=== PATIENT | male | born 1945 | race Caucasian/White ===

== ENCOUNTER 2023-03-01 18:20 | Outpatient (RCR) | payer MEDICARE, OTHER, SELFPAY | END 2023-03-25 23:59 | disposition home or self-care (01) | LOC: MM 18:20 | PROVIDERS: PCP Internal Medicine; Visit Provider Internal Medicine | DX: Z51.81 Encounter for therapeutic drug level monitoring (principal); Z79.01 Long term (current) use of anticoagulants; I48.91 Unspecified atrial fibrillation ==

== ENCOUNTER 2023-03-15 07:47 | Outpatient (OUT) | payer MEDICARE, OTHER, SELFPAY ==
--- NOTE | 2023-03-15 08:00 | CA_ITS ---
Patient: EL TRUONG Exam Date: 03/15/2023 : 1945 Gender:M Ordering : [facility] Admission #: [id number] Family : Order #: [id number] CLICK HERE TO VIEW EXAM ECHOCARDIOGRAM REPORT PROCEDURE: CA ECHO DOPPLER COMPLETE INDICATIONS: Atrial fibrillation, hypertension, diabetes, ascending aorta dilatation COMPARISON: None. DESCRIPTION: COMPLETE ECHOCARDIOGRAM Real-time transthoracic echocardiography with 2D, M-mode, spectral and color flow Doppler performed. QUALITY: Technical quality was good. LEFT VENTRICLE: Normal chamber size. Moderate concentric left ventricular hypertrophy. LV EF: Normal left ventricular ejection fraction, (>55%). DIASTOLIC: Diastolic function cannot be determined. ATRIAL SEPTUM: Visually appears intact. LEFT ATRIUM: Mild dilatation. RIGHT ATRIUM: Normal chamber size. RIGHT VENTRICLE: Normal chamber size. Normal right ventricular systolic function. TRICUSPID VALVE: Normal mobility and thickness. No regurgitation. Unable to assess right-sided pressures due to lack of measurable tricuspid regurgitation. MITRAL VALVE: Normal mobility and thickness. No evidence of mitral valve stenosis. Mild mitral annular calcification. Trivial mitral regurgitation. AORTIC VALVE: Normal trileaflet appearance. No visible sclerosis. Normal leaflet mobility. No evidence of aortic valve stenosis. No aortic regurgitation. AORTIC ROOT: Ascending aorta is mildly dilated (4.0 cm). PULMONIC VALVE: Normal thickness and mobility. No stenosis. Trivial regurgitation. PERICARDIUM: No evidence of pericardial effusion. IVC: Collapses with inspirations. CONCLUSION: Global left ventricular systolic function is normal; visually estimated ejection fraction is 55 to 60%. No significant wall motion abnormalities. The left atrium is mildly dilated. The right ventricle is normal in size and systolic function. No significant valvular abnormalities. Ascending aorta is mildly dilated. Adult Echocardiography Procedure Report Left Ventricle LVEDD (3.7 - 5.6 cm): 4.97 cm LVESD (2.2 - 4.0 cm): 3.74 cm LVIVS thickness (0.6 - 1.2 cm): 1.48 cm LVPW thickness (0.5 - 1.0 cm): 1.26 cm e': 0.08 m/s E - e': 6.52 LVOT Max Gradient: 2.78 mm[Hg] LVOT Area (cm2): 0.83 m/s Peak Velocity (LVOT): 0.83 m/s LVOT Diameter 2.73 cm Left Atrium LA Volume Index (2D A2C): 39.43 ml/m2 Left Atrium Systolic Dimension: 4.94 cm Mitral Valve MV E to A Ratio: 0.63 Mitral Valve A-Wave Peak Velocity: 0.85 m/s Mitral Valve E-Wave Peak Velocity: 0.53 m/s Right Ventricle Aorta AO Root Diam: 4.01 cm Ascending Ao Diam: 3.53 cm Aortic Valve AoV Area (Peak Red): 4.33 cm2, 4.33 cm2 Peak Velocity(Antegrade Flow): 1.13 m/s Peak Gradient(Antegrade Flow): 5.08 mm[Hg] Tricuspid Valve Pulmonic Valve Peak Velocity: 0.75 m/s Peak Gradient: 2.01 mm[Hg], 2.48 mm[Hg] Right Atrium Right Atrium Systolic Pressure: 75.05 ml, 75.05 ml Dictated by: Maggy Murphy M.D. on 03/16/2023 at 16:26 Approved by: Maggy Murphy M.D. on 03/16/2023 at 16:33
== END 2023-03-15 07:48 ==
LOC: CARD 07:47
PROVIDERS: PCP Internal Medicine; Visit Provider Nurse Practitioner Family
DX: I11.0 Hypertensive heart disease with heart failure (principal); I50.9 Heart failure, unspecified; G47.33 Obstructive sleep apnea (adult) (pediatric); I77.810 Thoracic aortic ectasia
CPT/HCPCS: 93306

== ENCOUNTER 2023-03-31 10:38 | Outpatient (RCR) | payer MEDICARE, OTHER, SELFPAY | END 2023-04-25 16:54 | disposition home or self-care (01) | LOC: MM 10:38 | PROVIDERS: PCP Internal Medicine; Visit Provider Internal Medicine | DX: Z51.81 Encounter for therapeutic drug level monitoring (principal); Z79.01 Long term (current) use of anticoagulants; I48.91 Unspecified atrial fibrillation | CPT/HCPCS: 85610; G0463 ==

== ENCOUNTER 2023-04-26 09:11 | Outpatient (RCR) | payer MEDICARE, OTHER, SELFPAY | END 2023-05-26 17:29 | disposition home or self-care (01) | LOC: MM 09:11 | PROVIDERS: PCP Internal Medicine; Visit Provider Internal Medicine | DX: Z51.81 Encounter for therapeutic drug level monitoring (principal); Z79.01 Long term (current) use of anticoagulants; I48.91 Unspecified atrial fibrillation | CPT/HCPCS: 85610; G0463 ==

== ENCOUNTER 2023-05-27 10:14 | Outpatient (RCR) | payer MEDICARE, OTHER, SELFPAY | END 2023-06-24 16:46 | disposition home or self-care (01) | LOC: MM 10:14 | PROVIDERS: PCP Internal Medicine; Visit Provider Internal Medicine | DX: Z51.81 Encounter for therapeutic drug level monitoring (principal); Z79.01 Long term (current) use of anticoagulants; I48.91 Unspecified atrial fibrillation | CPT/HCPCS: 85610; G0463 ==

== ENCOUNTER 2023-06-27 02:35 | Outpatient (RCR) | payer MEDICARE, OTHER, SELFPAY | END 2023-07-26 17:40 | disposition home or self-care (01) | LOC: MM 02:35 | PROVIDERS: PCP Internal Medicine; Visit Provider Internal Medicine | DX: Z51.81 Encounter for therapeutic drug level monitoring (principal); Z79.01 Long term (current) use of anticoagulants; I48.91 Unspecified atrial fibrillation ==

== ENCOUNTER 2023-07-05 19:07 | Emergency (ER) | payer MEDICARE, OTHER, SELFPAY ==
[2023-07-05 19:10] VITALS: BP 175/92; PULSE 71; RESP 18; TEMP 37.1; O2SAT 97; BMI 32.5
--- NOTE | 2023-07-05 19:31 | CT_ITS ---
The [address] [address] Patient Name: EL TRUONG MRN: [id number] date: 1945 Sex: M Assigned Patient Location: ER Current Patient Location: ER Accession/Order Number: [id number] Exam Date: 07/05/2023 20:41 Report Date: 07/05/2023 21:30 At the request of: JACQUELYN MARKER Procedure: CT facial bones wo con EXAMINATION: CT head/brain wo con, CT facial bones wo con CLINICAL HISTORY: fall, head injury TECHNIQUE: Serial axial unenhanced images were obtained from the vertex to the foramen magnum. Spiral high resolution axial unenhanced images were also obtained through the facial bones with sagittal and coronal planar reconstructions. All CT scans at this facility use dose modulation, iterative reconstruction, and/or weight based dosing when appropriate to reduce radiation dose to as low as reasonably achievable. COMPARISON: CT brain 01/21/2023 RESULT: BRAIN: Acute change: No evidence of an acute contusion or other acute parenchymal process. Hemorrhage: No evidence of acute intracranial hemorrhage. Mass lesion / Mass effect: There is no evidence of an intracranial mass or extraaxial fluid collection. No significant mass effect. Chronic change: Patchy foci of low attenuation coefficient are present within the supratentorial white matter which is a nonspecific finding but likely represents moderate microvascular ischemia. Parenchyma: There is moderate generalized volume loss. Ventricles: Ventricular enlargement concordant with the degree of parenchymal volume loss. FACIAL BONES: Soft Tissues: Marked left frontal, periorbital and malar eminence soft tissue swelling without underlying hematoma. Facial bones: No evidence of an acute fracture in the visualized facial bones. Orbits: No evidence of an acute fracture. The globes are intact. The soft tissue planes of the orbits are maintained. Paranasal Sinuses: Multiple maxillary sinus mucus retention cysts. Mastoid air cells: Clear. Foreign Bodies: No evidence of radio-opaque foreign bodies. Other: No evidence of a remote fracture. No lytic or blastic process in the facial bones. CT/CT facial bones wo con IMPRESSION: Brain: No evidence of acute intracranial process. Chronic microvascular ischemia and involutional changes. Facial bones, No evidence of acute facial bone fracture. Marked left frontal, periorbital and malar eminence soft tissue swelling with underlying hematoma. Electronically authenticated by: TOSHIA ANDRES Date: 07/05/2023 21:30
--- NOTE | 2023-07-05 19:31 | CT_ITS ---
The [address] [address] Patient Name: EL TRUONG MRN: [id number] date: 1945 Sex: M Assigned Patient Location: ER Current Patient Location: ER Accession/Order Number: [id number] Exam Date: 07/05/2023 20:41 Report Date: 07/05/2023 21:30 At the request of: JACQUELYN MARKER Procedure: CT head/brain wo con EXAMINATION: CT head/brain wo con, CT facial bones wo con CLINICAL HISTORY: fall, head injury TECHNIQUE: Serial axial unenhanced images were obtained from the vertex to the foramen magnum. Spiral high resolution axial unenhanced images were also obtained through the facial bones with sagittal and coronal planar reconstructions. All CT scans at this facility use dose modulation, iterative reconstruction, and/or weight based dosing when appropriate to reduce radiation dose to as low as reasonably achievable. COMPARISON: CT brain 01/21/2023 RESULT: BRAIN: Acute change: No evidence of an acute contusion or other acute parenchymal process. Hemorrhage: No evidence of acute intracranial hemorrhage. Mass lesion / Mass effect: There is no evidence of an intracranial mass or extraaxial fluid collection. No significant mass effect. Chronic change: Patchy foci of low attenuation coefficient are present within the supratentorial white matter which is a nonspecific finding but likely represents moderate microvascular ischemia. Parenchyma: There is moderate generalized volume loss. Ventricles: Ventricular enlargement concordant with the degree of parenchymal volume loss. FACIAL BONES: Soft Tissues: Marked left frontal, periorbital and malar eminence soft tissue swelling without underlying hematoma. Facial bones: No evidence of an acute fracture in the visualized facial bones. Orbits: No evidence of an acute fracture. The globes are intact. The soft tissue planes of the orbits are maintained. Paranasal Sinuses: Multiple maxillary sinus mucus retention cysts. Mastoid air cells: Clear. Foreign Bodies: No evidence of radio-opaque foreign bodies. Other: No evidence of a remote fracture. No lytic or blastic process in the facial bones. CT/CT head/brain wo con IMPRESSION: Brain: No evidence of acute intracranial process. Chronic microvascular ischemia and involutional changes. Facial bones, No evidence of acute facial bone fracture. Marked left frontal, periorbital and malar eminence soft tissue swelling with underlying hematoma. Electronically authenticated by: TOSHIA ANDRES Date: 07/05/2023 21:30
--- NOTE | 2023-07-05 19:33 | ED.HEATRA1 ---
HPI - Head Injury General Chief complaint: Head Injury Stated complaint: FALL Time Seen by Provider: 07/05/23 19:17 Mode of arrival: walk-in History of Present Illness HPI Narrative: This 78-year-old male who is on Coumadin due to a history of atrial fibrillation and is brought to the emergency department by his daughter after he had a fall this afternoon. The patient was outside putting some covers on some outdoor furniture when he tripped on a bungee cord and struck his face on the driveway. He has abrasions and swelling to the left orbital area and left forehead and left zygoma. His left eyelid is swollen shut. States that he was wearing a different His at that time and the glasses broke and that what he believes caused the abrasions to his nose and face.He denies any loss of consciousness. He has no neck pain. He denies any bleeding from his nose. There was no dental trauma. He has no chest pain or shortness of breath. He does not know the date of his last tetanus shot. He did have a brain bleed after falling approximately 6 months ago. He has no ongoing deficits from this injury. Related Data Home Medications Medication Instructions Recorded Confirmed amlodipine 10 mg tablet mg 07/05/23 aspirin 81 mg tablet,delayed 81 mg PO DAILY 07/05/23 07/05/23 release (Adult Aspirin Regimen) atorvastatin 10 mg tablet (Lipitor) 10 mg PO DAILY 07/05/23 07/05/23 benazepril 20 mg tablet mg 07/05/23 carvedilol 6.25 mg tablet mg 07/05/23 clonazepam 1 mg tablet mg 07/05/23 omeprazole 20 mg capsule,delayed mg 07/05/23 release propafenone 150 mg tablet mg 07/05/23 trazodone 50 mg tablet mg 07/05/23 warfarin 5 mg tablet mg 07/05/23 warfarin 7.5 mg tablet mg 07/05/23 Allergies Allergy/AdvReac Type Severity Reaction Status Date / Time iodine Allergy Verified 07/05/23 19:20 Penicillins Allergy Verified 07/05/23 19:20 Sulfa (Sulfonamide Allergy Verified 07/05/23 19:20 Antibiotics) Review of Systems ROS Status of ROS 10 or more systems reviewed and unremarkable except as noted in history and below PFSH PFS Social History Smoking status: Never smoker Exam Narrative Exam Narrative: Nurses note and vital signs reviewed and patient is not hypoxic.Blood pressure was notably elevated at 175/92 General: The patient appears well He is in no distress, notable swelling of the left periorbital area with abrasions on the face and zygoma and bridge of the nose Skin: Warm, dry, Abrasions to the left side of the face, forehead, nose and periorbital area no active bleeding Head: Normocephalic, Tenderness with swelling to the left periorbital area with abrasions and bruising, no active bleeding Eye: Left periorbital area is edematous and tender with superficial abrasions, I was able to open the patient's eye, pupils are equal and reactive, vision is grossly intact, extraocular muscles are intact without entrapment Ears, Nose, Mouth, and Throat: oral mucosa is moist. Nares patent. No nasal bleeding or septal hematoma noted, no dental injury Cardiovascular: Regular Rate and Rhythm S1S2, no murmurs rubs or gallops, pulses are brisk and equal bilaterally Respiratory: Patient is in no distress, no accessory muscle use, lungs are clear to auscultation, no wheezing, rales or rhonchi Back: non-tender, no CVA tenderness bilaterally to percussion. GI: Normal bowel sounds, no tenderness to palpation, no masses appreciated. No rebound, guarding, or rigidity noted. Musculoskeletal: The patient has no evidence of calf tenderness, no pitting edema, symmetrical pulses noted bilaterally Neurological: A&O x4, normal speech, Loss Mitigation Specialist strength is intact, GCS 15, no focal deficits Psychiatric: Cooperative Constitutional Vital Signs, click to edit/add: Last Vital Signs Temp 98.7 F 07/05/23 19:10 Pulse 71 07/05/23 19:10 Resp 18 07/05/23 19:10 BP 175/92 H 07/05/23 19:10 Pulse Ox 97 07/05/23 19:10 O2 Del Method Room Air 07/05/23 19:10 Course Vital Signs Vital signs: Vital Signs Temperature 98.7 F 07/05/23 19:10 Pulse Rate 71 07/05/23 19:10 Respiratory Rate 18 07/05/23 19:10 Blood Pressure 175/92 H 07/05/23 19:10 Pulse Oximetry 97 07/05/23 19:10 Oxygen Delivery Method Room Air 07/05/23 19:10 Temperature 98.7 F 07/05/23 19:10 Pulse Rate 71 07/05/23 19:10 Respiratory Rate 18 07/05/23 19:10 Blood Pressure 175/92 H 07/05/23 19:10 Pulse Oximetry 97 07/05/23 19:10 Oxygen Delivery Method Room Air 07/05/23 19:10 MDM - Head Injury MDM Narrative Medical decision making narrative: This 78-year-old male who is on Coumadin for a history of atrial fibrillation is brought to the emergency department by his daughter for evaluation of a facial injury/head injury. Patient was covering up outdoor furniture and tripped on a bungee cord landing on his face in the driveway. He was wearing glasses at the time that broke and caused him to have abrasions and contusions to the left side of his forehead, bridge of his nose and face. He denies any loss of consciousness. He has no neck pain or back pain. His neuro exam was normal. He did have marked swelling and bruising of the left periorbital area and tenderness over the left zygoma. CT scan of the brain and facial bones was read by radiology as normal. The patient was medicated in the emergency department with Tylenol, tetanus was updated and he was given an ice pack. Reevaluation he still is neurologically intact. The CT scans were discussed with the patient and his daughter and they were given a copy further records. I explained to him that the swelling in his face would take several days to go down, he verbalizes understanding and feels comfortable being discharged. Medical Records Medical records narrative: [place] [address] CT Scan Report Signed Patient: EL TRUONG MR#: [id number] : 1945 Acct:[id number] Age/Sex: 78 / M ADM Date: 07/05/23 Loc: ER Attending Dr: Ordering Physician: Jacquelyn Hurtado Date of Service: 07/05/23 Procedure(s): CT facial bones wo con Accession Number(s): [id number] cc: Shaikh Chitra Wynn~ [facility] [place] [id number] Patient Name: EL TRUONG MRN: [facility]:[id number] date: 1945 Sex: M Assigned Patient Location: ER Current Patient Location: ER Accession/Order Number: [id number] Exam Date: 07/05/2023 20:41 Report Date: 07/05/2023 21:30 At the request of: JACQUELYN MARKER Procedure: CT facial bones wo con EXAMINATION: CT head/brain wo con, CT facial bones wo con CLINICAL HISTORY: fall, head injury TECHNIQUE: Serial axial unenhanced images were obtained from the vertex to the foramen magnum. Spiral high resolution axial unenhanced images were also obtained through the facial bones with sagittal and coronal planar reconstructions. All CT scans at this facility use dose modulation, iterative reconstruction, and/or weight based dosing when appropriate to reduce radiation dose to as low as reasonably achievable. COMPARISON: CT brain 01/21/2023 RESULT: BRAIN: Acute change: No evidence of an acute contusion or other acute parenchymal process. Hemorrhage: No evidence of acute intracranial hemorrhage. Mass lesion / Mass effect: There is no evidence of an intracranial mass or extraaxial fluid collection. No significant mass effect. Chronic change: Patchy foci of low attenuation coefficient are present within the supratentorial white matter which is a nonspecific finding but likely represents moderate microvascular ischemia. Parenchyma: There is moderate generalized volume loss. Ventricles: Ventricular enlargement concordant with the degree of parenchymal volume loss. FACIAL BONES: Soft Tissues: Marked left frontal, periorbital and malar eminence soft tissue swelling without underlying hematoma. Facial bones: No evidence of an acute fracture in the visualized facial bones. Orbits: No evidence of an acute fracture. The globes are intact. The soft tissue planes of the orbits are maintained. Paranasal Sinuses: Multiple maxillary sinus mucus retention cysts. Mastoid air cells: Clear. Foreign Bodies: No evidence of radio-opaque foreign bodies. Other: No evidence of a remote fracture. No lytic or blastic process in the facial bones. CT/CT facial bones wo con IMPRESSION: Brain: No evidence of acute intracranial process. Chronic microvascular ischemia and involutional changes. Facial bones, No evidence of acute facial bone fracture. Marked left frontal, periorbital and malar eminence soft tissue swelling with underlying hematoma. Discharge Plan Discharge Chief Complaint: Head Injury Clinical Impression: Closed head injury, Contusion of left orbital tissues, Contusion of face, Abrasion of face Patient Disposition: Home, Self-Care Time of Disposition Decision: 21:43 Condition: Good Prescriptions / Home Meds: No Action warfarin 7.5 mg tablet amlodipine 10 mg tablet warfarin 5 mg tablet benazepril 20 mg tablet atorvastatin [Lipitor] 10 mg tablet 10 mg PO DAILY omeprazole 20 mg capsule,delayed release(DR/EC) aspirin [Adult Aspirin Regimen] 81 mg tablet,delayed release (DR/EC) 81 mg PO DAILY propafenone 150 mg tablet carvedilol 6.25 mg tablet trazodone 50 mg tablet clonazepam 1 mg tablet Instructions: Head Injury (ED), Abrasion (ED), Facial Contusion (ED) Stand Alone Forms: Portal Instructions Referrals: Shaikh Wynn MD [Primary Care Provider] - 1 week Discharge Date/Time: 07/05/23 21:51
[2023-07-05] MEDS: ACETAMINOPHEN 325 MG TABLET 650 MG PO (19:47)
[2023-07-05] MEDS: ADACEL DIPH,PERTUSS(ACELL),TET VAC/PF 0.5 ML ADULT SYRINGE IM (19:47)
== END 2023-07-05 21:51 | disposition home or self-care (01) ==
PROVIDERS: Emergency Provider Emergency Medicine; PCP Internal Medicine
DX: S09.8XXA Other specified injuries of head, initial encounter (principal); S00.81XA Abrasion of other part of head, initial encounter; S00.83XA Contusion of other part of head, initial encounter; S05.12XA Contusion of eyeball and orbital tissues, left eye, initial encounter; W01.198A Fall on same level from slipping, tripping and stumbling with subsequent striking against other object, initial encounter; I48.91 Unspecified atrial fibrillation; Z23 Encounter for immunization; Z79.01 Long term (current) use of anticoagulants; Z79.899 Other long term (current) drug therapy; Z79.82 Long term (current) 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
CPT/HCPCS: 70450; 70486; 90471; 90715; 99285

== ENCOUNTER 2023-07-11 07:17 | Outpatient (OUT) | payer MEDICARE, OTHER, SELFPAY ==
[2023-07-11 07:57] LABS: Basophils Percent Auto 0.5 % (0.2-2.0); Eosinophils Absolute Auto 0.1 10^3/uL (0.0-0.7); Eosinophils Percent Auto 2.8 % (0.9-7.0); Hematocrit 38.7 % (42.0-54.0); Hemoglobin 12.5 g/dL (14.0-18.0); Immature Granulocytes Abs Auto 0.01 10^3/uL (0.00-0.03); Immature Granulocytes Pct Auto 0.2 % (0.0-0.5); Lymphocytes Absolute Auto 1.3 10^3/uL (1.2-3.8); Lymphocytes Percent Auto 30.3 % (20.5-60.0); Mean Corpuscular HGB Conc 32.3 g/dL (29.9-35.2); Mean Corpuscular Hemoglobin 28.9 pg (25.9-34.0); Mean Corpuscular Volume 89.6 fL (80.0-94.0); Mean Platelet Volume 11.3 fL (9.5-13.5); Monocytes Absolute Auto 0.4 10^3/uL (0.3-0.8); Monocytes Percent Auto 9.7 % (1.7-12.0); Neutrophils Absolute Auto 2.4 10^3/uL (1.4-6.5); Neutrophils Percent Auto 56.5 % (43.0-75.0); Platelet Count 156 10^3/uL (150-450); Red Blood Count 4.32 10^6/uL (4.70-6.10); Red Cell Distribution Width 14.2 % (11.0-15.0); White Blood Count 4.2 10^3/uL (4.0-11.0)
[2023-07-11 08:54] LABS: Microalbumin Urine Random 2.5 mg/dL (<=30.0)
[2023-07-11 09:03] LABS: Alanine Aminotransferase 28 U/L (16-63); Anion Gap 11.6; BUN Creatinine Ratio 11.4; Calcium 8.7 mg/dL (8.5-10.1); Carbon Dioxide 28.5 mmol/L (21.0-32.0); Chloride 104 mmol/L (98-107); Chol HDL Ratio 2.7; Cholesterol 114 mg/dL (<=200); Estimated GFR (African America 60 (>=60); Estimated GFR (Non-African Ame 49 (>=60); Glucose 130 mg/dL (74-106); HDL Cholesterol 43 mg/dL (40-60); Potassium 4.1 mmol/L (3.5-5.1); Sodium 140 mmol/L (136-145); Thyroid Stimulating Hormone 2.826 uIU/mL (0.358-3.740); Triglycerides 156 mg/dL (<=150); VLDL CHOLESTEROL 31.2 mg/dL
[2023-07-11 09:06] LABS: Prostate Specific Antigen Scrn 1.89 ng/mL (<=4.00)
[2023-07-11 09:08] LABS: Estimated Average Glucose 148 mg/dL; Glycohemoglobin A1C 6.8 % (4.5-6.2)
== END 2023-07-11 07:18 | disposition home or self-care (01) ==
LOC: LAB 07:18
PROVIDERS: PCP Internal Medicine; Visit Provider Internal Medicine
DX: E11.65 Type 2 diabetes mellitus with hyperglycemia (principal); E78.2 Mixed hyperlipidemia; N18.31 Chronic kidney disease, stage 3a; Z79.899 Other long term (current) drug therapy; R53.83 Other fatigue; Z12.5 Encounter for screening for malignant neoplasm of prostate
CPT/HCPCS: 36415; 80048; 80061; 82043; 82607; 83036; 84443; 84460; 85025; G0103

== ENCOUNTER 2023-07-27 00:30 | Outpatient (RCR) | payer MEDICARE, OTHER, SELFPAY | END 2023-08-25 16:26 | disposition home or self-care (01) | LOC: MM 00:30 | PROVIDERS: PCP Internal Medicine; Visit Provider Internal Medicine | DX: Z51.81 Encounter for therapeutic drug level monitoring (principal); Z79.01 Long term (current) use of anticoagulants; I48.91 Unspecified atrial fibrillation | CPT/HCPCS: 85610; G0463 ==

== ENCOUNTER 2023-08-04 08:33 | Outpatient (RCR) | payer MEDICARE, OTHER, SELFPAY | END 2023-09-14 11:33 | disposition home or self-care (01) | LOC: PT 08:33 | PROVIDERS: PCP Internal Medicine; Visit Provider Internal Medicine | DX: M47.816 Spondylosis without myelopathy or radiculopathy, lumbar region (principal); G62.9 Polyneuropathy, unspecified; R53.1 Weakness; R26.81 Unsteadiness on feet | CPT/HCPCS: 97110; 97112; 97140; 97162 ==

== ENCOUNTER 2023-08-26 09:45 | Outpatient (RCR) | payer MEDICARE, OTHER, SELFPAY | END 2023-09-23 15:29 | disposition home or self-care (01) | LOC: MM 09:45 | PROVIDERS: PCP Internal Medicine; Visit Provider Internal Medicine | DX: Z51.81 Encounter for therapeutic drug level monitoring (principal); Z79.01 Long term (current) use of anticoagulants; I48.91 Unspecified atrial fibrillation | CPT/HCPCS: 85610; G0463 ==

== ENCOUNTER 2023-09-26 01:16 | Outpatient (RCR) | payer MEDICARE, OTHER, SELFPAY | END 2023-10-26 17:07 | disposition home or self-care (01) | LOC: MM 01:16 | PROVIDERS: PCP Internal Medicine; Visit Provider Internal Medicine | DX: Z51.81 Encounter for therapeutic drug level monitoring (principal); Z79.01 Long term (current) use of anticoagulants | CPT/HCPCS: 85610; G0463 ==

== ENCOUNTER 2023-10-27 01:42 | Outpatient (RCR) | payer MEDICARE, OTHER, SELFPAY | END 2023-11-24 17:20 | disposition home or self-care (01) | LOC: MM 01:42 | PROVIDERS: PCP Internal Medicine; Visit Provider Internal Medicine | DX: Z51.81 Encounter for therapeutic drug level monitoring (principal); Z79.01 Long term (current) use of anticoagulants | CPT/HCPCS: 85610; G0463 ==

== ENCOUNTER 2023-10-27 08:44 | Outpatient (OUT) | payer MEDICARE, OTHER, SELFPAY ==
[2023-10-27 09:30] LABS: Basophils Percent Auto 0.4 % (0.2-2.0); Eosinophils Absolute Auto 0.2 10^3/uL (0.0-0.7); Eosinophils Percent Auto 4.4 % (0.9-7.0); Hematocrit 38.9 % (42.0-54.0); Hemoglobin 12.3 g/dL (14.0-18.0); Immature Granulocytes Abs Auto 0.01 10^3/uL (0.00-0.03); Immature Granulocytes Pct Auto 0.2 % (0.0-0.5); Lymphocytes Absolute Auto 1.5 10^3/uL (1.2-3.8); Lymphocytes Percent Auto 27.8 % (20.5-60.0); Mean Corpuscular HGB Conc 31.6 g/dL (29.9-35.2); Mean Corpuscular Hemoglobin 28.6 pg (25.9-34.0); Mean Corpuscular Volume 90.5 fL (80.0-94.0); Mean Platelet Volume 11.5 fL (9.5-13.5); Monocytes Absolute Auto 0.4 10^3/uL (0.3-0.8); Monocytes Percent Auto 8.3 % (1.7-12.0); Neutrophils Absolute Auto 3.1 10^3/uL (1.4-6.5); Neutrophils Percent Auto 58.9 % (43.0-75.0); Platelet Count 171 10^3/uL (150-450); Red Cell Distribution Width 14.2 % (11.0-15.0); White Blood Count 5.2 10^3/uL (4.0-11.0)
[2023-10-27 11:30] LABS: Anion Gap 14.7; BUN Creatinine Ratio 9.4; Calcium 8.3 mg/dL (8.5-10.1); Carbon Dioxide 26.8 mmol/L (21.0-32.0); Chloride 102 mmol/L (98-107); Estimated GFR (African America 55 (>=60); Estimated GFR (Non-African Ame 46 (>=60); Glucose 263 mg/dL (74-106); Potassium 4.5 mmol/L (3.5-5.1); Sodium 139 mmol/L (136-145)
== END 2023-10-27 08:45 | disposition home or self-care (01) ==
LOC: LAB 08:45
PROVIDERS: PCP Internal Medicine; Visit Provider Nurse Practitioner Family
DX: I48.0 Paroxysmal atrial fibrillation (principal)
CPT/HCPCS: 36415; 80048; 85025

== ENCOUNTER 2023-10-31 11:28 | Outpatient (OUT) | payer MEDICARE, OTHER, SELFPAY ==
--- OUTSIDE RECORDS SUMMARY | 2023-10-31 11:34 | XMS_ITS | CCD ---
Author Name Unknown Address [id number] [place] [address] Organization [facility] Care Team Providers Care State Archivist Name Role Phone GENE FAJARDO Admitting Unavailable GENE FAJARDO Attending Unavailable AUGUSTINE METZ Primary Care Unavailable RYAN CARDENAS Referring Unavailable Augustine Metz Primary Care Provider [phone] Augustine Metz DO Primary Care Provider Augustine Metz DO Primary Care Provider Carmen Kahn Unavailable AUGUSTINE METZ Primary Care Physician Augustine Metz DO Primary Care Provider Damari Rojas Unavailable Unavailable Alyssa, Ms. Obdulia Benites Referring Unavaildamon Bui, Dr. Macario Kent Attending Unavai lable UNKNOWN, PCP Primary Care Unavailable Hao, Dr. Macario Kent Referring Unavai lable HONDA, Dr. PETERSON Attending Unavailable UNKNOWN, PCP Primary Care Unavailable Augustine Metz Unavailable AUGUSTINE METZ Primary Care Unavailable PUJA HOLBROOK MD Attending Unavaila AUGUSTINE Webster Primary Care Unavailable AUGUSTINE METZ Primary Care Unavailable PUJA HOLBROOK MD Attending UnavailAUGUSTINE Delgado Primary Care Unavailable AUGUSTINE METZ Primary Care Unavailable ISAÍAS, DR PEREZ Primary Care Unavailable ISAÍAS, DR PEREZ Consulting Unavailable ISAÍAS, DR PEREZ Admitting Unavailable ISAÍAS, DR PEREZ Attending Unavailable WEST, DR CARMEN Flynn Consulting Unavailable ISAÍAS, DR PEREZ Primary Care Unavailable MISC, DR LYMAN Admitting Unavailable MISC, DR LYMAN Attending Unavailable ISAÍAS, DR PEREZ Primary Care Unavailable GAGE ., DR CARTWRIGHT Admitting Unavailable ALMONTE ., DR CARTWRIGHT Consulting Unavailable ALMONTE ., DR CARTWRIGHT Attending Unavailable ZIEBER, DR SANTOS Blackman Consulting Unavailable MISC, DR LYMAN Consulting Unavailable MISC, DR LYMAN Attending Unavailable BALL, DR PEREZ Primary Care Unavailable MISC, DR LYMAN Admitting Unavailable ZIEBER, DR SANTOS Blackman Consulting Unavailable BALL, DR PEREZ Primary Care Unavailable BALL, DR PEREZ Consulting Unavailable BALL, DR PEREZ Admitting Unavailable BALL, DR PEREZ Attending Unavailable FAWWAD, CARTER H Attending Unavailable FAWWAD, CARTER H Admitting Unavailable BALL, DR PEREZ Primary Care Unavailable BALL, DR PEREZ Primary Care Unavailable REINECK, DR JUANJO Nuñez Consulting Unavailabl e REINECK, DR JUANJO Nuñez Attending Unavailabl e REINECK, DR JUANJO Nuñez Admitting Unavailabl e JEFFRY, TAVO Consulting Unavailable AHDOOT, LINDA Consulting Unavailable OWOYELE, TOSHIA Consulting Unavailable RASTEGAR, SALINA Consulting Unavailable FAWWAD, CARTER H Admitting Unavailable BALL, DR PEREZ Primary Care Unavailable FAWWAD, CARTER H Attending Unavailable FAWWAD, CARTER H Attending Unavailable FAWWAD, CARTER H Admitting Unavailable BALL, DR PEREZ Primary Care Unavailable FAWWAD, CARTER H Attending Unavailable FAWWAD, CARTER H Admitting Unavailable BALL, DR PEREZ Primary Care Unavailable FAWWAD, CARTER H Attending Unavailable FAWWAD, CARTER H Admitting Unavailable BALL, DR PEREZ Primary Care Unavailable FAWWAD, CARTER H Attending Unavailable FAWWAD, CARTER H Admitting Unavailable BALL, DR PEREZ Primary Care Unavailable FAWWAD, CARTER H Attending Unavailable FAWWAD, CARTER H Admitting Unavailable BALL, DR PEREZ Primary Care Unavailable FAWWAD, CARTER H Admitting Unavailable BALL, DR PEREZ Primary Care Unavailable FAWWAD, CARTER H Attending Unavailable FAWWAD, CARTER H Attending Unavailable FAWWAD, CARTER H Admitting Unavailable BALL, DR PEREZ Primary Care Unavailable BALL, DR PEREZ Primary Care Unavailable BALL, DR PEREZ Consulting Unavailable BALL, DR PEREZ Admitting Unavailable BALL, DR PEREZ Attending Unavailable ZIEBER, DR SANTOS Blackman Consulting Unavailable FAWWAD, CARTER H Attending Unavailable FAWWAD, CARTER H Admitting Unavailable BALL, DR PEREZ Primary Care Unavailable BALL, DR PEREZ Attending Unavailable BALL, DR PEREZ Primary Care Unavailable BALL, DR PEREZ Admitting Unavailable BALL, DR PEREZ Consulting Unavailable BALL, DR PEREZ Referring Unavailable BALL, DR PEREZ Consulting Unavailable BALL, DR PEREZ Admitting Unavailable BALL, DR PEREZ Primary Care Unavailable BALL, DR PEREZ Attending Unavailable FAWSHAIKH Tiburcio ROWE Attending Unavailable FAWSHAIKH Tiburcio ROWE Admitting Unavailable BALL, DR PEREZ Primary Care Unavailable Ball , Augustine Primary Care Provider [phone] AZUL RACHEL Attending Unavailable VIRGINIE, AZUL Referring Unavailable BALL, AUGUSTINE Primary Care Unavailable VIRGINIE, AZUL Attending Unavailable VIRGINIE, AZUL Referring Unavailable BALL, AUGUSTINE Primary Care Unavailable VIRGINIE, AZUL Attending Unavailable VIRGINIE, ZAUL Referring Unavailable BALL, AUGUSTINE Primary Care Unavailable SELF, SELF Referring Unavailable BALL, AUGUSTINE Primary Care Unavailable FOSTER, PASTOR Attending Unavailable FOSTER, PASTOR Referring Unavailable BALL, AUGUSTINE Primary Care Unavailable FOSTER, PASTOR Attending Unavailable VIRGINIE, AZUL Attending Unavailable SELF, SELF Referring Unavailable BALL, AUGUSTINE Primary Care Unavailable Ball, Augustine Primary Care Unavailable Nohemi, Colin Duncan Admitting Unavailab james Song, Colin Duncan Attending Unavailab Augustine Ruby MD Primary Care Provider JOSE R DODD Attending Unavailable ZAHLER, JOSE R Hogan Attending Unavailable ZAHLER, JOSE R Hogan Attending Unavailable ZAHLER, JOSE R Hogan Attending Unavailable ELTAMAGGY KELLY Attending Unavailable MOUKARBEL, OLIVER Attending Unavailable MADISON WOODARD Attending Unavailable MOUKAOLIVEREL, OLIVER Referring Unavailable MOUKARBEL, OLIVER Admitting Unavailable MOUKARBEL, OLIVER Attending Unavailable Allergies Allergy Classification Reported Allergen(s) Allergy Type Date of Onset Reaction(s) Facility (10 sources) Iodine; Translations: [iodine] Drug Allergy 08-31-20 09 Unknown [facility] Repository (3 sources) Penicillins; Translations: [PENICILLINS] Drug allergy (disorder) 08-01-19 63 [facility] Repository (3 sources) Sulfonamides (Antibiotic); Translations: [SULFA (SULFONAMIDE ANTIBIOTICS)] Drug allergy (disorder) 08-31-19 93 [facility] Repository (2 sources) Shellfish Containing Products; Translations: [Shellfish Containing Products] Food allergy (disorder) 08-31-20 09 [facility] Repository (16 sources) Iodine; Translations: [iodine] Drug Allergy 08-31-20 09 Swelling, Unknown (qualifier value), Anaphylaxis [facility] (16 sources) Penicillin G Drug Allergy 10-20-19 13 Hives [facility] (14 sources) Shellfish Propensity to adverse reactions to drug 08-31-20 09 Swelling, Other [facility] (12 sources) Sulfonamides (Antibiotic) Propensity to adverse reactions to drug 10-20-19 13 Swelling [facility] (9 sources) Penicillins (Antibiotic) Drug allergy Unknown [facility] [employer] Other (9 sources) Shrimp product Propensity to adverse reactions Unknown [facility] [employer] Other (9 sources) Sulfonamides (Antibiotic) Drug allergy Unknown [facility] [employer] Other (3 sources) Penicillin; Translations: [penicillin] Drug Allergy Unknown (qualifier value) [facility] (1 source) Sulfonamides (Antibiotic); Translations: [sulfa drugs] Drug allergy Unknown (qualifier value) [facility] (1 source) No Alert Propensity to adverse reactions to drug 09-14-20 22 [facility] (1 source) Penicillin Drug Allergy 10-01-19 23 [facility] (1 source) Propensity to adverse reactions to drug 10-01-19 23 [facility] (1 source) Iodine Drug Allergy 08-30-20 13 [facility] Rep[facility] (1 source) Shellfish Drug allergy (disorder) 08-30-20 13 [facility] Repository (2 sources) sulfADIAZINE Drug Allergy Unknown [facility] [employer] Other (4 sources) Substance with sulfonamide structure and antibacterial mechanism of action (substance) Drug allergy 08-31-19 93 Rash, Swelling [facility] [employer] Other (1 source) sulfa drug; Translations: [sulfa drug] Propensity to adverse reactions to drug (disorder) [facility] Repository (2 sources) Penicillin V Drug Allergy 01-23-20 23 [facility] (2 sources) Penicillins Drug Allergy 08-01-19 63 Hives [facility] (2 sources) Other Allergy to substance 06-30-20 23 Other [facility] (2 sources) Shellfish-Derived Products Drug Allergy 10-20-19 13 Swelling [facility] Medications Current Medications Medication Drug Class(es) Dates Sig (Normalized) Sig (Original) Accu-Chek Prachi Plus - (7 sources) Accu-Chek Prachi Plus - USE TO TEST BLOOD SUGAR DAILY for 50 Active acetaminophen 325 mg oral tablet (14 sources) Start: 03-15-2022 take 2 tablets by mouth every four hours as needed acetaminophen 325 MG tablet Take 2 tablets by mouth every 4 hours as needed for Mild Pain. 50 tablet 1 03/15/2022 Active Start: 03-15-2022 End: 03-16-2022 take 1 tablet by mouth every six hours acetaminophen (TYLENOL) tablet 1,000 mg Start: 04-27-2021 End: 03-16-2022 take 1 mg by mouth every six hours, then take 2 tablets by mouth every eight hours Tylenol Extra Strength 500 mg oral tablet mg tab(s), Oral, q6hr, taking 2 every 8 hours, Refills(s) 0 Start Date: 04/27/21 Status: Ordered amLODIPine 10 mg oral tablet (20 sources) Dihydropyridine Calcium Channel Dominic Start: 03-16-2022 End: 03-16-2022 amLODIPine (NORVASC) tablet 5 mg Start: 03-15-2022 End: 03-16-2022 take 2.5 mg by mouth every twelve hours 2.5 mg, Oral, EVERY 12 HOURS, First dose on 03/15/22 at 2100, Until Discontinued Hold for blood pressure less than 1 20 mmHg Start: 09-24-2019 amLODIPine (No rvasc) 10 MG tablet Take 10 mg by mouth. 0 07/09/2022 Active Aspirin (20 sources) Platelet Aggregation Inhibitor, Nonsteroidal Anti-inflammatory Drug Start: 10-01-2022 [id number] Medication aspirin aspirin 300 mg 10/01/2022 Active (Outside) Start: 09-24-2019 aspirin Refill s(s) 0 Start Date: 09/24/19 Status: Ordered take 1 tablet by wendy th in the morning aspirin 81 MG EC tablet Take 1 tablet by mouth in the morning. 0 Active take 1 tablet by wendy th every twenty-four hours Aspirin 81 MG 1 tablet Orally Once a day Active atorvastatin 10 mg oral tablet (20 sources) HMG-CoA Reductase Inhibitor Start: 06-15-2012 End: 03-16-2022 take 1 tablet by mouth every twenty-four hours atorvastatin 10 MG Tab tablet Take 1 tablet by mouth every evening. 0 06/15/2012 Active benazepril hydrochloride 20 mg oral tablet (20 sources) Angiotensin Converting Enzyme Inhibitor Start: 02-03-2018 take 1 tablet by mouth in the morning benazepril (Lotensin) 20 MG tablet Take 20 mg by mouth in the morning. 0 07/09/2022 Active carvedilol 6.25 mg oral tablet (20 sources) alpha-Adrenergic Dominic, beta-Adrenergic Dominic Start: [id number] Medication carvedilol 6.25 mg tablet carvedilol 6.25 mg tablet 6.25 mg 07/28/2022 Active (Outside) Start: 03-15-2022 End: 03-16-2022 take 6.25 mg by mouth every twelve hours 6.25 mg, Oral, EVERY 12 HOURS, First dose on Tue03/15/22 at 2100, Until Discontinued Start: 09-24-2019 take 1 tablet by wendy th twice daily carveDILOL 6.25 MG tablet Take 1 tablet by mouth 2 times daily. 0 03/04/2020 Active carvedilol (Core g) 12.5 MG tablet Take by mouth 2 (two) times a day with meals. 0 Active carvedilol (Core g) 12.5 MG tablet every 12 (twelve) hours. 0 Active celecoxib 200 mg oral capsule (4 sources) Nonsteroidal Anti-inflammatory Drug Start: 09-24-2019 take 1 mg by mouth twice daily CeleBREX 200 mg Cap mg cap(s), Oral, BID, Refills(s) 0 Start Date: 09/24/19 Status: Ordered End: 2022 take 1 capsule by mouth once daily celecoxib 200 MG Cap capsule Take 200 mg by mouth daily. 0 2022 Discontinued (Medication Reconciliation (suppress cancel msg)) ciprofloxacin 500 mg oral tablet (7 sources) Quinolone Antimicrobial Start: 11-10-2022 take 1 tablet by mouth every twelve hours clindamycin 150 mg oral capsule (6 sources) Lincosamide Antibacterial Start: 04-08-2022 End: 04-08-2023 clindamycin 150 MG capsule Take 4 capsules 1 hour before the procedure 8 capsule 1 04/08/2022 04/08/2023 Active clonazePAM 1 mg oral tablet (20 sources) Benzodiazepine Start: 06-30-2022 take 1 tablet by mouth in the evening clonazePAM (KlonoPIN) 1 MG tablet Take 1 mg by mouth in the evening. 0 06/30/2022 Active Start: 03-15-2022 End: 03-16-2022 take 1 tablet by mouth once daily at bedtime 0.5 mg, Oral, DAILY AT BEDTIME, First dose on Tue03/15/22 at 2100, Until Discontinued If given by enteral tube: Disperse the crushed tablet in at least 10 mL of water. (Using at least 10 mL helps prevent adherence of the medication to the plastic tube.) Flush tube with at least 10 mL of water before and after. Hold if decreased respiratory drive or mental status after anesthesia Start: 09-24-2019 take 1 tablet by wendy th three times daily clonazepam 1 mg Tab mg tab(s), Oral, TID, Refills(s) 0 Start Date: 09/24/19 Status: Ordered Start: 01-16-2018 End: 2022 clonazePAM 0.5 MG Tab tablet 1 mg. 0 01/16/2018 2022 Discontinued (Medication Reconciliation (suppress cancel msg)) take 1 tablet by wendy th every twenty-four hours clonazePAM 1 MG 1 tablet Orally Once a day Active docusate sodium 100 mg oral capsule (8 sources) Start: 03-15-2022 End: 03-16-2022 take 1 capsule by mouth twice daily docusate 100 MG capsule Take 1 capsule by mouth 2 times daily. 60 capsule 0 03/15/2022 Active glimepiride 1 mg oral tablet (1 source) Sulfonylurea Start: 09-24-2019 take 1 tablet by mouth once daily glimepiride 1 mg Tab mg tab(s), Oral, Daily, Refills(s) 0 Start Date: 09/24/19 Status: Ordered Glucosamine-Chondro it-Vit C-Mn (Glucosamine-Chondr oitin) capsule (2 sources) Glucosamine-Jordan d roit-Vit C-Mn (Glucosamine-Jordan droitin) capsule Take by mouth. 0 Active Multi Vitamin+ (1 source) Start: 09-24-2019 Multi Vitamin+ Refill(s) 0 Start Date: 09/24/19 Status: Ordered Multiple Vitamins-Minerals (PRESERVISION AREDS PO) (10 sources) Multiple Vitamins-Minerals (PRESERVISION AREDS PO) Take by mouth. 0 Active omeprazole 20 mg delayed release oral capsule (20 sources) Proton Pump Inhibitor Start: 12-27-2017 take 1 capsule by mouth once daily omeprazole (PriLOSEC) [address] capsule Take 1 capsule every day by oral route for 90 days. 0 04/22/2022 Active primidone 250 mg oral tablet (1 source) Anti-epileptic Agent Start: 08-21-2022 [id number] Medication omeprazole 20 mg capsule,delayed release omeprazole 20 mg capsule,delayed release 20 mg 08/21/2022 Active (Outside) propafenone hydrochloride 150 mg oral tablet (20 sources) Antiarrhythmic Start: 07-06-2022 propafenone (Rythmol) 150 MG tablet Take by mouth. 0 07/06/2022 Active Start: 09-24-2019 End: 03-16-2022 propafenone (RYTHMOL) tablet 150 mg therapeutic multivitamin-minerals tablet (7 sources) Start: 03-15-2022 take 1 tablet by mouth at bedtime therapeutic multivitamin-minerals tablet Take 1 tablet by mouth at bedtime. 30 tablet 0 03/15/2022 Active traZODone hydrochloride 50 mg oral tablet (20 sources) Serotonin Reuptake Inhibitor Start: 09-24-2019 take 1 tablet by mouth at bedtime traZODone (Desyrel) 50 MG tablet Take 1 tablet by mouth at bedtime. 0 04/30/2022 Active take 1 tablet by wendy th every twenty-four hours traZODone HCl 50 MG 1 tablet at bedtime as needed Orally Once a day Active Tylenol 8 Hour 650 MG (7 sources) take 2 tablets by mouth every ei ght hours as needed take 2 tablets by mo uth every eight hours as needed Tylenol 8 Hour 650 MG 2 tablets as neede d Orally every 8 hrs Active warfarin sodium 5 mg oral tablet (20 sources) Vitamin K Antagonist Start: 09-24-2019 take 1 mg by mouth once daily warfarin 7.5 mg Tab mg tab(s), Oral, Daily, Refills(s) 0 Start Date: 09/24/19 Status: Ordered Start: 01-02-2018 warfarin 5 MG tablet 1 tablet. 0 01/02/2018 Active Start: 01-02-2018 warfarin 5 MG tablet 7 mg. Tuesday and Tuesday 7.5 mg, S,M,W,THUR,F 5 mg daily 0 01/02/2018 Active Warfarin 5mg 5 m g 1 tablet orally [id number] Active Warfarin Sodium Active Completed/Discontinued Medications Medication Drug Class(es) Dates Sig (Normalized) Sig (Original) bisacodyl 10 mg rectal suppository (1 source) Stimulant Laxative Start: 03-15-20 End: 03-16-20 bisacodyl (DULCOLAX) suppository 10 mg ceFAZolin 2000 mg injection (1 source) Cephalosporin Antibacterial Start: 03-15-20 End: 03-16-20 take 2 g intravenously every eight hours ceFAZolin (ANCEF) 2 g in dextrose 100 mL premix IVPB dexamethasone phosphate 10 mg/ml injectable solution (1 source) Corticosteroid Start: 03-16-20 End: 03-16-20 dexAMETHasone (DECADRON) injection 10 mg 24 hr dilTIAZem hydrochloride 120 mg extended release oral capsule (3 sources) Calcium Channel Dominic Start: 12-28-19 End: 01-22-20 diltiazem 120 MG Cap SR 24HR capsule XL docusate sodium 50 mg / sennosides, residential 8.6 mg oral tablet (1 source) Start: 03-15-20 End: 03-16-20 senna-docusate (SENOKOT-S) 8.6-50 MG per tablet 2 tablet ferrous sulfate 325 mg oral tablet (5 sources) Start: 03-16-20 End: 07-08-20 take 325 mg by mouth once daily 325 mg, Oral, DAILY, First dose on Tue03/16/22 at 0900, Until Discontinued hydroCHLOROthiazide 12.5 mg oral tablet (3 sources) Thiazide Diuretic Start: 02-04-20 End: 01-22-20 hydroCHLOROthiazide 12.5 MG tablet 1 ml HYDROmorphone hydrochloride 1 mg/ml cartridge (1 source) Opioid Agonist Start: 03-15-20 End: 03-16-20 take 0.5 mg intravenously every four hours as needed HYDROmorphone (DILAUDID) injection 0.5 mg insulin regular (HumuLIN R;NovoLIN R) injection (1 source) Start: 03-15-20 End: 03-16-20 insulin regular (HumuLIN R;NovoLIN R) injection lisinopril 5 mg oral tablet (1 source) Angiotensin Converting Enzyme Inhibitor Start: 03-16-20 End: 03-16-20 take 10 mg by mouth once daily 10 mg, Oral, DAILY, First dose on Tue03/16/22 at 0900, Until Discontinued Hold if blood pressure less than 1 20 mmHg metFORMIN hydrochloride 500 mg oral tablet (3 sources) Biguanide End: 01-22-20 take 1 tablet by mouth twice daily at mealtime metformin 500 MG Tab tablet Take 500 mg by mouth 2 times daily with meals. 0 2022 Discontinued (Medication Reconciliation (suppress cancel msg)) metroNIDAZOLE 500 mg oral tablet (7 sources) Nitroimidazole Antimicrobial Start: 11-10-19 take 1 tablet by mouth every eight hours metroNIDAZOLE 500 MG 1 tablet Orally Three times a day for 7 days Oct, Not-Taking Multiple Vitamins-Minerals (MULTIVITAMIN ADULT PO) (3 sources) End: 01-22-20 Multiple Vitamins-Minerals (MULTIVITAMIN ADULT PO) Take by mouth. 0 2022 Discontinued (Medication Reconciliation (suppress cancel msg)) Multiple Vitamin s-Minerals (MULTIVITAMIN ADULT PO) Take by mouth. 0 Active Multivitamins (9 sources) Multivitamins as directed Orally Not-Taking Multivitamins as directed Orally Active 2 ml ondansetron 2 mg/ml injection (1 source) Serotonin-3 Receptor Antagonist Start: 03-15-2022 End: 03-16-2022 take 4 mg intravenously every four hours as needed ondansetron 4mg/2ml (ZOFRAN) injection 4 mg oxyCODONE hydrochloride 5 mg oral tablet (5 sources) Opioid Agonist Start: 03-15-2022 End: 03-16-2022 take 5-10 mg by mouth every four hours as needed oxyCODONE (ROXICODONE) tablet 5-10 mg Start: 03-15-2022 End: 03-22-2022 oxyCODONE 5 MG tablet Indica tions: Acute postoperative pain of right knee Take one to two tabs every 4-6 hours as needed for severe pain. Wean as tolerated 30 tablet 0 03/15/2022 Active pantoprazole 40 mg delayed release oral tablet (1 source) Proton Pump Inhibitor Start: 03-15-2022 End: 03-16-2022 take 40 mg by mouth once daily 40 mg, Oral, DAILY EARLY EVENING, First dose on Tue03/15/22 at 1800, Until Discontinued, Indications: Inpt Stress Ulcer Prophylaxis 200 ml ropivacaine hydrochloride 2 mg/ml injection (1 source) Amide Local Anesthetic Start: 03-15-2022 End: 03-16-2022 ropivacaine (NAROPIN) 0.2 % On-Q pump 750 mL ropivacaine (NAROPIN) 1 % 400 mg, EPINEPHrine PF (ADRENALIN) 1 MG/ML 1 mg, ketorolac (TORADOL) 30 MG/ML 30 mg, cloNIDine 100 MCG/ML 226 mcg, sodium chloride 0.9% 45 mL 89.26 mL (total volume) (1 source) Start: 03-15-2022 End: 03-15-2022 ropivacaine (NAROPIN) 1 % 400 mg, EPINEPHrine PF (ADRENALIN) 1 MG/ML 1 mg, ketorolac (TORADOL) 30 MG/ML 30 mg, cloNIDine 100 MCG/ML 226 mcg, sodium chloride 0.9% 45 mL 89.26 mL (total volume) 1000 ml sodium chloride 9 mg/ml injection (3 sources) Start: 03-15-2022 End: 03-16-2022 sodium chloride 0.9 % irrigation Start: 03-15-2022 End: 03-16-2022 sodium chloride 0.9% IV solu tion sodium phosphate, dibasic 35.5 mg/ml / sodium phosphate, monobasic 96.4 mg/ml enema (1 source) Start: 03-15-2022 End: 03-16-2022 sodium phosphate w/sodium biphosphate (FLEETS) enema 1 enema tranexamic acid 650 mg oral tablet (1 source) Antifibrinolytic Agent Start: 03-15-2022 End: 03-15-2022 tranexamic acid (LYSTEDA) tablet 1,950 mg vancomycin 1000 mg injection (1 source) Glycopeptide Antibacterial Start: 03-15-2022 End: 03-16-2022 vancomycin (VANCOCIN) injection zolpidem tartrate 5 mg oral tablet (1 source) gamma-Aminobutyric Acid-ergic Agonist Start: 03-15-2022 End: 03-16-2022 zolpidem (AMBIEN) tablet 5 mg Problems Active Problems Problem Classification Problem Date Documented Date Episodic/Chronic Abdominal hernia (1 source) Diaphragmatic hernia without obstruction or gangrene; Translations: [DIAPH HERNIA W/O OBST/GANGRENE] Onset: 3 Episodic Abdominal pain (20 sources) Generalized abdominal pain; Translations: [Generalized abdominal pain] Onset: 3 Episodic Acute cerebrovascular disease (4 sources) Hemorrhage into subarachnoid space of neuraxis; Translations: [Nontraumatic subarachnoid hemorrhage, unspecified] Chronic Aortic; peripheral; and visceral artery aneurysms (2 sources) Thoracic aortic ectasia; Translations: [Thoracic aortic ectasia] Onset: 3 Chronic Biliary tract disease (9 sources) Obstruction of bile duct; Translations: [Obstruction of bile duct] Chronic Biliary tract disease (12 sources) Gallstone; Translations: [Calculus of gallbladder without cholecystitis without obstruction] Onset: 2 Resolved: 2 Episodic Calculus of urinary tract (16 sources) Kidney stone; Translations: [Calculus of kidney] Onset: 2 Episodic Cardiac dysrhythmias (20 sources) Paroxysmal atrial fibrillation; Translations: [Paroxysmal atrial fibrillation] Onset: 2 Chronic Cataract (2 sources) Bilateral age-related nuclear cataracts; Translations: [Age-related nuclear cataract, bilateral] Onset: 4 10-28-2023 Chronic Chronic kidney disease (16 sources) Chronic kidney disease stage 3A ; Translations: [Stage 3a chronic kidney disease] Onset: 2 Chronic Complication of device; implant or graft (1 source) Joint pain; Translations: [Pain due to internal orthopedic prosthetic devices, implants and grafts, sequela] Episodic Complications of surgical procedures or medical care (7 sources) Retained cholelithiasis following cholecystectomy; Translations: [Retained cholelithiasis following cholecystectomy] Episodic Congestive heart failure; nonhypertensive (9 sources) Chronic diastolic heart failure; Translations: [Chronic diastolic (congestive) heart failure] Chronic Deficiency and other anemia (7 sources) Anemia; Translations: [Anemia, unspecified] Episodic Diabetes mellitus with complications (13 sources) Hyperglycemia due to type 2 diabetes mellitus; Translations: [Type 2 diabetes mellitus with hyperglycemia] Onset: 3 Chronic Diabetes mellitus without complication (10 sources) Type 2 diabetes mellitus without complication; Translations: [Type 2 diabetes mellitus without complications] Onset: 2 Chronic Disorders of lipid metabolism (19 sources) Mixed hyperlipidemia; Translations: [Mixed hyperlipidemia] Onset: 2 Chronic Diverticulosis and diverticulitis (9 sources) Diverticular disease; Translations: [Diverticulosis of intestine, part unspecified, without perforation or abscess without bleeding] Chronic E Codes: Fall (1 source) Fall (on) (from) unspecified stairs and steps, initial encounter; Translations: [FALL ON FROM UNS STAIRS STEPS INIT] Onset: 3 Episodic Esophageal disorders (11 sources) Gastroesophageal reflux disease without esophagitis; Translations: [Gastro-esophageal reflux disease without esophagitis] Onset: 2 Chronic Essential hypertension (12 sources) Hypertensive disorder; Translations: [Essential hypertension] Onset: 2 09-24-2019 Chronic Glaucoma (1 source) Glaucoma 09-24-2019 Chronic Heart valve disorders (10 sources) Non-rheumatic mitral regurgitation ; Translations: [Nonrheumatic mitral (valve) insufficiency] Onset: 2 Chronic Hyperplasia of prostate (3 sources) Benign prostatic hypertrophy with outflow obstruction; Translations: [Benign prostatic hyperplasia with lower urinary tract symptoms] Onset: 2 Chronic Hypertension with complications and secondary hypertension (8 sources) Chronic kidney disease due to hypertension; Translations: [Hypertensive chronic kidney disease with stage 1 through stage 4 chronic kidney disease, or unspecified chronic kidney disease] Onset: 3 Chronic Intracranial injury (1 source) Traumatic subarachnoid hemorrhage without loss of consciousness, initial encounter; Translations: [TRAUMATIC SA HEMORRHAGE NO LOC INIT] Onset: 3 Episodic Melanomas of skin (1 source) Melanoma in situ of other parts of face Onset: 3 Chronic Osteoarthritis (17 sources) Osteoarthritis of right knee joint; Translations: [Unilateral primary osteoarthritis, right knee] Onset: 3 Chronic Other aftercare (7 sources) Long-term current use of anticoagulant; Translations: [audit intern (current) use of anticoagulants] Episodic Other aftercare (2 sources) senior care (current) use of anticoagulants; Translations: [RETIREMENT CURRNT USE ANTICOAGULANTS] Onset: 3 Episodic Other aftercare (5 sources) Encounter for therapeutic drug level monitoring; Translations: [ENC THERAPEUTC DRUG LEVL MONITORING] Onset: 3 Episodic Other aftercare (1 source) audit intern (current) 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; Translations: [SEWER REPAIRER CURRENT USE OF ASPIRIN] Onset: 3 Episodic Other aftercare (1 source) Other home appliance tech (current) drug therapy; Translations: [OTH RETIREMENT CURRENT DRUG THERAPY] Onset: 3 Episodic Other connective tissue disease (8 sources) History of total knee arthroplasty; Translations: [Presence of right artificial knee joint] Onset: 2 Chronic Other connective tissue disease (3 sources) History of right total knee replacement; Translations: [Presence of right artificial knee joint] Chronic Other connective tissue disease (1 source) Presence of left artificial knee joint; Translations: [PRESENCE LEFT ARTIFICIAL KNEE JOINT] Onset: 3 Chronic Other connective tissue disease (6 sources) Presence of right artificial knee joint; Translations: [PRESENCE RT ARTIFICIAL KNEE JOINT] Onset: 2 Chronic Other connective tissue disease (2 sources) Repeated falls; Translations: [Repeated falls] Onset: 3 Episodic Other diseases of kidney and ureters (1 source) Urinary tract obstruction; Translations: [Other obstructive and reflux uropathy] Onset: 2 Episodic Other diseases of kidney and ureters (7 sources) Acquired renal cystic disease; Translations: [Cyst of kidney, acquired] Episodic Other ear and sense organ disorders (1 source) Unspecified hearing loss, unspecified ear; Translations: [UNS HEARING LOSS UNSPECIFIED EAR] Onset: 3 Chronic Other endocrine disorders (7 sources) Other specified disorders of adrenal gland; Translations: [Nodule of adrenal cortex (disorder)] Chronic Other eye disorders (3 sources) Dry eyes; Translations: [Dry eye syndrome of bilateral lacrimal glands] Onset: 3 08-29-2023 Episodic Other gastrointestinal disorders (7 sources) Pharyngeal dysphagia; Translations: [Dysphagia, pharyngoesophageal phase] Episodic Other hereditary and degenerative nervous system conditions (8 sources) Restless legs; Translations: [Restless legs syndrome] Onset: 2 Chronic Other hereditary and degenerative nervous system conditions (1 source) Restless legs syndrome; Translations: [RESTLESS LEGS SYNDROME] Onset: 3 Chronic Other injuries and conditions due to external causes (7 sources) History of fall; Translations: [History of falling] Episodic Other injuries and conditions due to external causes (7 sources) Choking due to food in larynx; Translations: [Food in larynx causing asphyxiation, initial encounter] Episodic Other liver diseases (7 sources) Steatosis of liver; Translations: [Fatty (change of) liver, not elsewhere classified] Chronic Other liver diseases (2 sources) Fatty (change of) liver, not elsewhere classified Chronic Other nervous system disorders (1 source) Other acute postprocedural pain; Translations: [Pain in joint, lower leg] Episodic Other non-epithelial cancer of skin (1 source) Personal history of other malignant neoplasm of skin; Translations: [PERSONAL HX OTH MALIG NEOPLASM SKIN] Onset: 3 Episodic Other non-traumatic joint disorders (1 source) Pain in right knee; Translations: [Pain in joint, lower leg] Episodic Other nutritional; endocrine; and metabolic disorders (9 sources) Obese class II; Translations: [Body mass index (BMI) 36.0-36.9, adult] Chronic Other screening for suspected conditions (not mental disorders or infectious disease) (9 sources) Ultrasound scan abnormal; Translations: [Abnormal findings on diagnostic imaging of other specified body structures] Chronic Other screening for suspected conditions (not mental disorders or infectious disease) (1 source) Coag./bleeding tests abnormal; Translations: [Abnormal coagulation profile] Episodic Pancreatic disorders (not diabetes) (18 sources) Disorder of pancreas; Translations: [Disease of pancreas, unspecified] Onset: 2 Resolved: 2 Episodic Residual codes; unclassified (7 sources) Periodic limb movement disorder; Translations: [Periodic limb movement disorder] Chronic Residual codes; unclassified (7 sources) Obstructive sleep apnea syndrome; Translations: [Obstructive sleep apnea (adult) (pediatric)] Chronic Residual codes; unclassified (4 sources) Obstructive sleep apnea (adult) (pediatric); Translations: [Obstructive sleep apnea (adult) (pediatric)] Onset: 3 Chronic Residual codes; unclassified (1 source) Sleep apnea, unspecified; Translations: [SLEEP APNEA UNSPECIFIED] Onset: 3 Chronic Residual codes; unclassified (1 source) Family history of malignant neoplasm of skin 09-24-2019 Episodic Residual codes; unclassified (1 source) No current problems or disability; Translations: [Other specified conditions influencing health status] Onset: 2 Episodic Residual codes; unclassified (1 source) Acquired absence of other specified parts of digestive tract; Translations: [ACQ ABSENCE OTH PART DIGESTV TRACT] Onset: 3 Episodic Retinal detachments; defects; vascular occlusion; and retinopathy (8 sources) Exudative age-related macular degeneration; Translations: [Exudative age-related macular degeneration, bilateral, with active choroidal neovascularization] Onset: 3 03-17-2023 Chronic Septicemia (except in labor) (7 sources) Other Gram-negative sepsis; Translations: [Enterobacter sepsis] Episodic Spondylosis; intervertebral disc disorders; other back problems (3 sources) Cervicalgia; Translations: [CERVICALGIA] Onset: 3 Episodic Sprains and strains (1 source) Strain of muscle, fascia and tendon at neck level, initial encounter; Translations: [STRN MUSC FASC TENDON NECK LEVL INT] Onset: 3 Episodic Unclassified (1 source) History of revision of left total knee arthroplasty; Translations: [History of revision of total replacement of left knee joint] Unclassified (1 source) Drug therapy finding 04-25-2020 Unclassified (5 sources) Chronic atrial fibrillation, unspecified; Translations: [CHRONIC ATRIAL FIBRILLATION UNSPEC] Onset: 3 Past or Other Problems Problem Classification Problem Date Documented Date Episodic/Chronic Chronic kidney disease (2 sources) Chronic kidney disease Deficiency and other anemia (1 source) Anemia, unspecified; Translations: [ANEMIA UNSPECIFIED] Onset: 2 Episodic Diabetes mellitus without complication (3 sources) Glycosuria; Translations: [Glycosuria] Onset: 2 Episodic Esophageal disorders (7 sources) Esophageal disorders; Translations: [Gastro-esophageal reflux disease with esophagitis, without bleeding] Fluid and electrolyte disorders (8 sources) Hyponatremia; Translations: [Hypo-osmolality and hyponatremia] Onset: 2 Episodic Genitourinary symptoms and ill-defined conditions (3 sources) Proteinuria; Translations: [Proteinuria, unspecified] Onset: 2 Episodic Inflammation; infection of eye (except that caused by tuberculosis or sexually transmitteddisease) (2 sources) Keratitis; Translations: [Other keratitis] Onset: 3 Resolved: 4 08-29-2023 Episodic Other gastrointestinal disorders (4 sources) Dysphagia, pharyngoesophageal phase; Translations: [DYSPHAGIA PHARYNGOESOPHAGEAL PHASE] Onset: 2 Episodic Other injuries and conditions due to external causes (4 sources) Food in larynx causing asphyxiation, initial encounter; Translations: [FOOD LARYNX CAUS ASPHYX INITIAL ENC] Onset: 2 Episodic Superficial injury; contusion (4 sources) Abrasion of left cornea; Translations: [Injury of conjunctiva and corneal abrasion without foreign body, left eye, initial encounter] Onset: 3 Resolved: 4 08-29-2023 Episodic Unclassified (7 sources) Elevated transaminase level; Translations: [Elevated transaminase level] Results Test Name Value Interpretation Reference Range Facility Optical coherence tomography study reporton 10-28-2023 [facility] Radiology Study observation (narrative) [facility] Prep for Procedureon 024 Prep for Procedure [id number] Amina Goncalves R 1945 M Date Provider Department Center 10/27/2023 [facility] MOSES TIMO Cline Family History Problem Relation Age of Onset Cancer Mother Heart attack Other Family Status - Relation Status Age at Mother Other Normal [facility] Orders Onlyon 10-25-2023 Orders Only [id number] Amina Goncalves R 1945 M Date Provider Department Center 10/25/2023 MADISON MOSES Family History Problem Relation Age of Onset Cancer Mother Heart attack Other Family Status - Relation Status Age at Mother Other Normal [facility] Office Visiton 10-24-2023 Follow-up visit [id number] IvannaAmina Blackman 1945 Provider Department [facility] 10/24/2023 MAGGY LEBRON TIMO Santiago Family History Problem Relation Age of Onset Cancer Mother Heart attack Other Family Status - Relation Status Age at Mother Other Level of Service:43964 [place] OFFICE/OUTPATIENT ESTABLISHED LOW MDM 20 MIN [facility] Prep for Procedureon 024 Prep for Procedure [id number] MichjamesAmina Blackman 1945 Provider Department [facility] 10/17/2023 MAD[facility] MOSES Family History Problem Relation Age of Onset Cancer Mother Heart attack Other Family Status - Relation Status Age at Mother Other [facility] 36on 10-05-2023 36 Patient underwent hi s pre-LAAO JESSICA. He is a candidate for an occlusive device. Spoke to patient regarding next steps. He needs to have shared decision documentation with another physician. He will be seeing his primary control analyst in a couple weeks. Discussed possible procedure date of 11/01/2023. He states he would consider this and would further discuss with his daughter. Of note, he is planning a trip to [place] for 1 month mid October and he will return the end of November. [facility] Telephoneon 10-05-2023 Telephone [id number] Amina Goncalves 1945 Provider Department [facility] 10/05/2023 MADISON MOSES Family History Problem Relation Age of Onset Cancer Mother Heart attack Other Family Status - Relation Status Age at Mother Other [facility] Eric 09-16-2023 ANES ------ -- Attestation signed by Hortencia Noel MD at 09/16/2023 11:07 AM By using the attestations below, the signing clinician agrees that I have read and verify that the documentation has been personally reviewed by me and ensure that the documentation accurately reflects the encounter. GC: I personally saw this patient on the day of the encounter, performed the blackburn portion(s) of the service and participated in the management and confirm the resident's documentation. Please note there may be an additional personal documentation from me. -- Patient: Tito Goncalves Procedure Information Date/Time: 09/16/23 0900 Procedure: TRANSESOPHAGEAL ECHO (JESSICA) Location: [facility] Vascular Lab Clinical information reviewed: Allergies Meds Physical Exam Airway Mallampati: II Cardiovascular Rhythm: regular Rate: normal Dental Pulmonary Breath sounds clear to auscultation Abdominal Anesthesia Plan ASA 3 other (Moderate sedation) Anesthetic plan and risks discussed with patient. Use of blood products discussed with patient who. Plan discussed with fellow and attending. Additional Equipment Requests Normal [facility] HPon 09-16-2023 ------ -- Attestation signed by Hortencia Noel MD at 09/16/2023 11:07 AM By using the attestations below, the signing clinician agrees that I have read and verify that the documentation has been personally reviewed by me and ensure that the documentation accurately reflects the encounter. GC: I personally saw this patient on the day of the encounter, performed the blackburn portion(s) of the service and participated in the management and confirm the resident's documentation. Please note there may be an additional personal documentation from me. -- H&P reviewed. The patient was examined and there are no changes to the H&P. [facility] NURSNOTEon 09-16-2023 NURSNOTE RN educated pt on d/ c instructions. RN encouraged pt to voice any questions or concerns. Pt verbalizes no questions or concerns at this time. Normal [facility] NURSNOTE Bedside swallow stud y completed and passed. [facility] Telephoneon 09-15-2023 Telephone [id number] Amina Goncalves 1945 M Date Provider Department Center 09/15/2023 [facility] VASC LAB ID HeartVAS Family History Problem Relation Age of Onset Cancer Mother Heart attack Other Family Status - Relation Status Age at Mother Other [facility] HPon 09-06-2023 [facility] Cardiology - [facility] Clinic Subjective Tito Goncalves is a 78 y.o. year old male patient being seen to discuss LAAO. He presented to [facility] ED in Jun 2023 for fall. He is anticoagulated with warfarin for afib. Back in December 2022 he had brain bleed s/p fall. Was treated at [facility]. He denies chest pain, SOB, and lightheadedness/syncope. Patient Active Problem List Diagnosis Atrial fibrillation (CMS/HCC) Hypertensive disorder Mitral valve disorder Obstructive sleep apnea syndrome Arrhythmia Bile duct obstruction Fall Gastroesophageal reflux disease without esophagitis Hyponatremia Mixed hyperlipidemia Pneumobilia Restless leg syndrome S/P total knee arthroplasty, right Stage 3a chronic kidney disease (CMS/HCC) Subdural hematoma (CMS/HCC) Type 2 diabetes mellitus without complication, without long-term current use of insulin (CMS/HCC) Benign prostatic hyperplasia with urinary obstruction Calculus of ureter Diabetes mellitus (CMS/HCC) Dry eyes Exposure keratitis 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 He is a 78-year-old man with history of paroxysmal atrial fibrillation, it started in 2012. He is maintained on warfarin for anticoagulation and propafenone for rhythm control. He has history of hypertension on treatment. He has history of obstructive sleep apnea. He has diabetes and used to be on metformin but currently controlled on diet. In April 2019 he presented to the [facility] with atrial fibrillation with controlled ventricular response. In December 2022 he fell and sustained a subsequent brain bleed. He was placed back on warfarin few weeks later. He then fell again recently and was evaluated in the emergency room because of head trauma and abrasions to the face. Review of Systems Cardiovascular: Positive for leg swelling (resolves by morning). Hematologic/Lymphatic: Bruises/bleeds easily. Musculoskeletal: Positive for arthritis, back pain, falls and myalgias. All other systems reviewed and are negative. Objective Visit Vitals BP 124/72 (BP Location: Left arm, Patient Position: Sitting) Pulse 58 Ht 1.829 m (6') Wt 112 kg (246 lb) SpO2 97% BMI 33.36 kg/m??? Smoking Status Former BSA 2.39 m??? Physical Exam Constitutional: Appearance: He is well-developed. He is obese. He is not ill-appearing. HENT: Head: Normocephalic and atraumatic. Nose: Nose normal. Eyes: General: No scleral icterus. Pupils: Pupils are equal, round, and reactive to light. Neck: Thyroid: No thyromegaly. Vascular: No JVD. Cardiovascular: Rate and Rhythm: Normal rate and regular rhythm. Pulses: Radial pulses are 2+ on the right side and 2+ on the left side. Heart sounds: Normal heart sounds. No murmur heard. No friction rub. No gallop. Pulmonary: Effort: Pulmonary effort is normal. No respiratory distress. Breath sounds: Normal breath sounds. No wheezing or rales. Chest: Chest wall: No tenderness. Abdominal: General: Bowel sounds are normal. There is no distension. Palpations: Abdomen is soft. Tenderness: There is no abdominal tenderness. Musculoskeletal: General: No swelling. Cervical back: Neck supple. Skin: General: Skin is warm and dry. Neurological: General: No focal deficit present. Mental Status: He is alert and oriented to person, place, and time. Psychiatric: Mood and Affect: Mood normal. Behavior: Behavior is cooperative. Judgment: Judgment normal. Allergies Allergies Allergen Reactions Iodine Anaphylaxis Penicillins Hives Shellfish Containing Products Other Sulfa (Sulfonamide Antibiotics) Rash Medications Current Outpatient Medications: amLODIPine (Norvasc) 10 mg tablet, Take 1 tablet by mouth in the morning., Disp: , Rfl: aspirin 81 mg EC tablet, Take 1 tablet every day by oral route., Disp: , Rfl: atorvastatin (Lipitor) 10 mg tablet, Take 1 tablet by mouth in the evening., Disp: , Rfl: benazepril (Lotensin) 20 mg tablet, Take 1 tablet by mouth in the morning., Disp: , Rfl: carvedilol (Coreg) 12.5 mg tablet, Take 1 tablet (12.5 mg) by mouth with breakfast and with evening meal., Disp: 180 tablet, Rfl: 3 clonazePAM (KlonoPIN) 1 mg tablet, , Disp: , Rfl: omeprazole (PriLOSEC) [address] capsule, Take 1 capsule every day by oral route for 90 days., Disp: , Rfl: propafenone (Rythmol) 150 mg tablet, Take 1 tablet (150 mg) by mouth in the morning, at noon, and at bedtime., Disp: 270 tablet, Rfl: 3 traZODone (Desyrel) 50 mg tablet, Take 1 tablet (more content not included)... Normal [facility] Office Visiton 09-06-2023 Follow-up visit [id number] Amina Goncalves 1945 M Date Provider Department Center 09/06/2023 OLIVER RUELAS TIMO Santiago Family History Problem Relation Age of Onset Cancer Mother Heart attack Other Family Status - Relation Status Age at Mother Other Level of Service:13391 [place] OFFICE/OUTPATIENT ESTABLISHED HIGH MDM 40-54 MIN [facility] Coding Summaryon 07-11-2023 Coding Summary HTMLBase 64 PdszzwutPWc5uKh+PGhlYWQ+PE 3SLOAiA27tbDNdpW5kG5NPCMyC ElaoKFYHOAyCTeYabuHcTA6tjR NjZXJu IC8+KW7aCKSlGobnsYWcu4Y9xT P1T93oqf7tTDgnpSD3HYWqCfTt aljic2jsbEm2IFktSgfsNgEo KYCwsB33BCU7lL12Fb65vBKgkD Tol2qdoXt5IrAgOYOpQPJ9eFcc WEsxz3CcLGZiG56chRDss1S4 LKMaiHppeEJzEyJgyKG8bT7xGL opxvmjb6mexsbmCyk7ys76pWIs r8L7hPZ6A9PmufK4PSDufFNx WakfzSUDlJ5brjbqx9iblaswYa RhGMZwZCl4JZb8ACIbjCxrHjIx AI05SCG7JKLkrzWaM6AyEAUv kJvjTfH7k6P6Yh6CL1GBMtnuZ9 VNTUFSWTwvdGQ+AA78ea07T5Zl FhljKty4EQLiFBU1mEI2aK5k WAQcKHmyo6M7dCB0P7XewjJxqf 8oa2muRWDeQTmbM78vbPTkz3F3 NRHhlLL0QVKsmPknHzXpiM08 Oyc+RHGqmDelb2SgIlkfw2sxp4 aqyDl9PupvGPGhigMpnTgjZWY7 b8SfLf9qPTNtaFP0nPK1gP6h GgJvKdQ0DEcnJ050HaHqdPNiLf wqQ74wH4NygNL+NSZaFqi6RMRb nZsmNI7qS1ZmWGSfasflzQJx cTdsGU9vWAQdmnjxEFWpoQ7sXU VbZ4n1PnMuTeO9QZknL6CwMKSx iinlMb66jP8nRtTuLpZ8OXyn Y5JcpsZ7DRHyrQUsTCflJVE1Z1 4an4C9XCYoBFYyHCD4qHI3rU4l bGlnbjogbGVmdDsgdmVydGlj DGnpHQrvY010ZVEmzMhaYdBrZO luZyBEYXRlOiAgMTAvMTYvMjAy MzwvdGQ+HKObXYW1kHyjXCKq cPZmSBmmUb3dsRzhkQqhGM3uZE FmceuyTNDahI6gLNPitQUcsPwu DN9iHVEmiuglz664KkPcRGC1 MAXfwLFiE5VzbP0gChFnEGKcRI RlN5XvdVTrDUbwX378GFwmIwA6 CZVuojTmN9PaALOxxJztLpD7 u4T2Zc1Nt3DvlhpjW9UqaOOxOu ZxAxwgVAq6P3ZkRbqemWA+PC90 DLGcNQ22ALc3GPH9yFlyEMre CANmZ0BbcF8mWbQaYFOoLJAxHx c+PHRhYmxlIHdpZHRoPScxMDAl FmBkxWuuZQ3rTr9rRKEuKVJu dPovoYLuEsPug7hmUCRtGWbyFK 5qdHkxN1RtqOE9TTOax4d1Gu33 K58tA5SmcEL+QRWtmIK0yGO3 zB2dOwLgUuX8HFklK441NzUbbS HrKnscu2onu2qkjVm4NkO2QUHu etRzrSkhBYE3b3YfCt85T24s IHdpZHRoPSIxNSUiIHZhbGlnbj 0vaU6eIr2+JALfvHW1sQT0hI1h KdHfEbP8LItmZ545JfFadYRi Tglyv9wqm8lnmGd3HvGpSZWsas RgwTzaSGG2u0VcZo01E3OtwHxz p4NiJsb8dj74sVWhk5O3oYI1 R4FnDBQyddpusNEdsLgvJS9sAQ UmacxqPKCzmU4vCLGnI4e8GrTe StP0PSmhM6IfrjX1WSYjxGPl CLPwnGQIpQ3xvijoa4bosiwwBm SaYUYhFJu8KQe2LPTplNgmAbAs NAA8ZpZ4ECD4jXMimC0uvZna rymfqO3qLtv+RSW2kBIcpBGNTB 1lOjwvdGQ+QSBlSBG3dYuyREms GNUwxX6tHYMfZ3a1AkItSdG5 JLufF9QhumY6OQGsaMMnYAWziP XOgQ5btuxzu2dayhihTaAxSVJg TTr5DWm7HBOqnTqxRcIwBKK7 LtK9PAS9nGWxjJ5ntXzmwukvyK 9wOyc+LggcqPdmYHA9MOx7H1Nc Jfb5SVZbmKwsXM0vnGLnVZby Jf0mlIpvtQxcWR3fBMFilmuye3 00YeRqv7ncDVBufZQjDCicDOA1 Y66ax0M0XVJxCCYqHGI5tIX7 gQ1leTkcborqzYFdtMrfsnKijQ azYForHXuoM879ICGoqKwwMpVd MRv3I3KoJul5XYAlkPmzRA1e oHFpGAnkYb1kwCotcNvfZT1lLX Tcmgjyw140QhZmo1oaJNIzyIYf TDgaUFO8K79ep0M7IRWwBSGs HPH0sUU3vP4vtJoqkqsrsGTriO lmgiLqyUlaGGjfPTpwK440CPBq yPskJwCdcXw8D8RpTsr5IVYf tCtqBC9rqXUsNHnaSd8xeGfwbY aeTK0cHWZhayfxo736VwGij6ba FCPklGJoJVrzWVV0Y84di8U1 OQVkJGArIXG4wON0nJ7zyBjirj ogbGVmdDsgdmVydGljYWwtYWxp F887KUOdzAdpQpQzwAikvvBz KDwrIEd8J8NlJegerFG+PC90YW VwVV24xEKbsBFlq6katCn1WzNc TJDpRRD1iPoyGAhpu9AkBKEf A40nqJFgb5H9RTAqzWprjSOeYz PbdMD3wQ4iRJzucjlxs2hampfh Pofix8czey18zO63K82tMEqn GRXnBACnCGSoGQDbrNzyic2kmF 9wIi8+HZLhwJL1yWF3qC0kUUFs VtL1JWwkD725AoHxhEEdXuep r8jlm7oldXj6TuN8CBStgyVitK ohROU9k3GxAx61M49yAHfyRUAx XZVsWSQePWZspBsngq3guB3f Ii8+UTOhiTH6xTL8sZ7kWwTqAr P2ARstW517AtBqbLPfNnzvD60k K7UbyME+JCBfEqa7ACTrhWup NB3xxSSpNZadLe9bTKF6MgOhKi DfLQakP6CgBRIpidfsshnphTL9 NVUzUKNxzO60Ul0tfNxiMAAp rWXInY8nshzpe0cmcrbdIvFoVI FiLZw2LSm8ZDXzuFruUgGpOWV9 StG2KXF0xPEicW4kbBsohlow dS1fT8GcMFXjbsubEk26fK5hEo HnXaV3LYivUtn+D7QLTAZwTMWD D8ANXNHJTOYKNNZZOG29EM63 bFIyg2K7xJQ7J7VuWHVesaqbtb oqzDL1BZEeITXybX66gTDoRWvl Ap2qv7I5d982EGWfLOMzzE03 Fs3zmBigUZTjiWGMsB0usqomw9 whkdsxFaXcMMGrVRj3CFs3CBMs sLhzJeYkQDL5RtH0UKA3eOKk gX4txTmyylghxH9cNbe+MDQvMj upFUe0GarqoVR+VWPkJWE4tSyg OAqxSIDufA1cFWYvV7a1CrGi KxY1AGoiG6WxKUAzuwhpXq51lB 1ePuXwYoU1EOhqK5MkdfQ0NAPu cEAfWOvsBEN8R99pr3Q8DXFo IMKiNIJ4cWG2oR8bnOxlozjykR GunAyuamVxzVkuEOonSIazD090 GBAumLahFca9DDhqMWFdDI89 WK01lYXgr9D3jJQ2T5SaPGTger ndnxxikYU3UJLtNWKlqI03qILf GRkvXy7ax1W1z962ZDCaPMMh nH11Ad4vpZjdAHKvwKTXxJ0soz eux3vclzhnOqEbDHOhADn3RVk8 JRElsIshByMaOJT2AbJ8XWU5 yRCfeP2icQjzzadrqP0zOtv+TU FMRTwvdGQ+WBMtAUP3zJvoZXuf NCGdwX4xFZVqX8j0VxGbJdO3 KSjrI7VoMRGhtmbyTw28oQ4bGp SxXvB4CIwwL7DampF2PWWxwZNz EEkzBTS9S16bg6S1BRGqGGMa DXE8nBS3sS6oeGweymuukSYctK nozyEykUwkPRqsHAwzQ961OFXh gHofAyTwHEIoKT8tePdzcPB+ YV38cd77M4NaSbkkBwi0RNCqYV E9lUV4eT1uVMTvJUzxq0O6qJM1 U4BjfsVybc4qj4nsSXQuDUfe V13wxZWyt5J7EBEwbBF3IWXnbD wwRvOqkA34Zmx+ESFvpRkmh7Pi Ujcxk0lys0aoxHn9UwXtBQKy wrGxyBtrAAU9k5WqJz36N09aFQ dyAJZuRGPmLKUoBUXkqUowsu7z mB6pHj4+LHKebTN2eHB1hK1p UyTkFnM7XRvbO888PjUgcAAyNm roi9nyy3xhnJn8CtIyWQYidfKb lYjdQNI9m9ZiCb36I1IcwDcr a9EpUaf8le36eUOac6T8yQI5F5 YoTUHuaydhyVCrrJbkVI6fKFWm lsbtMNKvoZ4yLNIwL7k1CjQv PwY4PZclC7ZglaM8LLTamSPcHQ PheIQPtL5cuaqiz6ycmubyDlHt WRTgQQv7IYf7SGBjnAqqAmEi TUD7LwF8BLW0cGVaaT8fvHafxl trrN0zJgt+FTu7c1guxPDqKC7r vMP2CZ71DO55pBYwt8A0yTG6 Y0CkJRLnqfxhmozksIC9GQImLC UwqJ27Ye5tmIohLl1yRWZtLGT9 IZNolYIqT2RkyQ5tJpRrWBPs SBNqE8VhyOEjBFuwP161GBvnZb L5JDOeugSuK5FmJKFvsRpeHgQ2 m7M8Cz0KUZ57KG64AA93zMWe r9K2hHN1T2CmPQYwbqyvsvvqfA C6JLFrZAXxcR00Yv5oxQzwXe9y HCRlDKB5RNFunBHxV1RbxR3y ErFcXVAgKUIsS2IlvDFvZNleR1 60WYrwIjP8DJNkvmOtH3CmZHQe kVtzYzV9l9U3Kz3ITu23UJ80 OA39qMPcp9B2tOT3V9GlAZNdqa gmdkxnvBP1QEDfUROkfH02Fy8y tXccRc4wTAKrSJD7UKBdhJEt C4RpsM5cNyLmCXVhCSCsB8RyzU NoFSusB331KJtrYyP1OGYuyyVw C9ThIPHtuPgmFpW4n3I8Ac0L DHfwaeg6O6XeCqbyiXQ+PC90YW AgVF54gEZdsHYyc5uhrQk9ZgAt WXYmNMM5mSiyRFtpw3NuWBQb Y29 (more content not included)... [facility] ED Clinical Summaryon 2022 ED Clinical Summary [facility] Emergency Department [address] [place] [id number] ED Clinical Summary PERSON INFORMATION Name: TITO GONCALVES Age: 78 Years Sex: MALE : 1945 MRN: Acct#: Visit Reason: Eye Injury; Fall; FALL/LT EYE LAC Arrival: 07/05/2023 16:48:26 Discharge: 07/05/2023 18:40:00 LOS: 000 01:52 Check In: 07/05/2023 16:48:26 Checkout:07/05/2023 18:40:00 Address: [facility] [address] PCP: Augustine Metz PROVIDER INFORMATION Provider Role Assigned Unassigned Aysha RN, Lisa ED Nurse 07/05/2023 17:08:51 VITALS INFORMATION Vital Sign Triage Latest Temperature Tympanic Temperature Temporal Artery Pulse Rate O2 Sat 95 % 95 % Respiratory Rate 18 br/min 18 br/min Blood Pressure /79 mmHg /79 mmHg MEDICAL INFORMATION Medications Given: Allergy Information: iodine; sulfa drug PHYSICIAN DOCUMENTATION DISCHARGE INFORMATION: Discharge Disposition: Left Without Being Seen Discharge Location: Home PATIENT EDUCATION INFORMATION Instructions: Follow-Up: DIAGNOSIS: Patient Understands: Yes - Patient/family/caregiver verbalizes understanding of instructions given Comment: [facility] ED Patient Education Noteon 07-05-2023 ED Patient Education Note Education Materials [facility] ED Patient Summaryon 023 ED Patient Summary [facility] Emergency Department [address] [place] [id number] PATIENT DISCHARGE INSTRUCTIONS Patient Information Name: TITO GONCALVES Age: 78 Years Date of : 1945 Reason For Visit: Eye Injury; Fall; FALL/LT EYE LAC Arrival Time: 07/05/2023 16:48:26 Primary Care Physician: Augustine Metz Attending Physician: Colin Song DO Comment: Visit Diagnosis: Diagnoses This Visit Eye Injury ([id number]) Fall ([id number]) The Pharmacy at [facility] is open Tuesday through Tuesday from 9A to 6P and Tuesday and Tuesday from 9A to 5P Prescription Information: If you have been given a prescription for narcotics, seek immediate medical attention if you have any difficulty breathing or any sudden status changes such as confusion and sleepiness. If you or anyone you know is experiencing suicidal thoughts, mental health, alcohol and/or drug addiction problems; contact the [facility] 18/04 Crisis Hotline -Text 0PWBP ed 021050. If you received any narcotics, sedation, or any other medication that causes drowsiness for the next 24 hours, unless otherwise directed: ? Do not drive a car. ? Do not operate machinery such as power tools, lawn mowers, drills, sewing machines, or stoves ? Avoid alcoholic beverages and drugs for allergies, nerves, or sleep ? Do not make important personal or business decisions or sign any legal documents Medication Information: The exam and treatment you received today in the [facility] Emergency Department were for an urgent problem and are not intended as complete care. It is important for you to follow up with a doctor, nurse practitioner, or physician?s trust manager assistant for ongoing care. If your symptoms become worse or you do not improve as expected and you are unable to reach your usual health care provider, you should return to the Emergency Department, we are available 24 hours a day. For those patients who have received Radiology results, the interpretation of your X-ray as given to you by our Emergency Department physician is only a preliminary report. The Radiologist will review your films and if there is a change in the diagnosis you will be notified by phone. Please make sure you have provided a working phone number so we can reach you if necessary. In the event that you had a lab culture while you were a patient in the Emergency Department, you will be notified by phone if there is a need to change your antibiotic. Please make sure you have provided a working phone number so we can reach you if necessary. [facility] Emergency Department has provided you with a complete list of medications post discharge. Please inform your student teaching coordinator/provider of your visit and for further instruction on these medications. Any specific questions regarding your chronic medications and dosages should be discussed with your primary care physician(s) and/or pharmacist. Medications to Continue That Have Not Changed Other Medications acetaminophen (Tylenol Extra Strength 500 mg oral tablet) 1 tab(s) Oral Every 4 hours as needed as needed for fever. amLODIPine (amLODIPine 10 mg oral tablet) 1 tab(s) Oral every day. aspirin (Aspirin 81 Chewtab) atorvastatin (Lipitor 10 mg oral tablet) 1 tab(s) Oral every day. benazepril (benazepril 20 mg oral tablet) 1 tab(s) Oral every day. carvedilol (carvedilol 12.5 mg oral tablet) 1 tab(s) Oral 2 times a day. clonazePAM (clonazePAM 1 mg oral tablet) 1 tab(s) Oral 2 times a day. multivitamin with minerals (ICaps AREDS 2) omeprazole (omeprazole 20 mg oral delayed release capsule) 1 cap(s) Oral every day. propafenone (propafenone 150 mg oral tablet) 1 tab(s) Oral Every 8 hours. traZODone (traZODone 50 mg oral tablet) 1 tab(s) Oral 3 times a day. warfarin (warfarin 5 mg oral tablet) 1 tab(s) Oral every day. warfarin (warfarin 7.5 mg oral tablet) 1 tab(s) Oral every day. Visit Information Allergies: Substance Reaction Symptoms Type Comments iodine Drug sulfa drug Drug Vital Signs: Vitals and Measurements this Visit (last charted value for your 07/05/2023 visit) Vital Signs This Visit Temperature Oral: 36.7 DegC Heart Rate Monitored: 78 bpm Respiratory Rate: 18 br/min Systolic Blood Pressure: 152 mmHg Diastolic Blood Pressure: 79 mmHg SpO2: 95 % Oxygen Therapy: Room air Measurements This Visit Height/Length Dosin.000 cm Height/Length Estimated: 182.000 cm Weight Dosin.950 kg Weight Estimated: 107.950 kg Problems List: Problem Onset Comments No Problems found Patient Education Viruses or Bacteria What?s got you sick? Antibiotics only treat bacterial infections. Viral illnesses cannot be treated with antibiotics. When an antibiotic is not prescribed, ask your healthcare professional for tips on how to relieve symptom (more content not included)... 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 Thanks! 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 His HR is controlled but his BP is averaging above goal of <130/90. Recommend we increase his carvedilol to 12.5mg BID. Follow-up in clinic in 3 months. Thanks! [facility] Office Visiton 02-28-2023 Follow-up visit [id number] Amina Goncalves 1945 [facility] Provider Department Center 02/28/2023 MADISON MOSES Family History Problem Relation Age of Onset Cancer Mother Heart attack Other Family Status - Relation Status Age at Mother Other Level of Service:88692 [place] OFFICE/OUTPATIENT ESTABLISHED MOD MDM 30-39 MIN Reason for Visit and Comments: Atrial Fibrillation [80] Hypertension [497149] [facility] Telephoneon 02-28-2023 Telephone [id number] Amina Goncalves 1945 [facility] Provider Department [place] 02/28/2023 LEE FOFANA TIMO Santiago Family History Problem Relation Age of Onset Cancer Mother Heart attack Other Family Status - Relation Status Age at Mother Other [facility] Phone Msgon 02-01-2023 Phone Msg - From: Lori Cintron MA Sent: 02/01/2023 08:59:25 EDT Caller Name: TITO GONCALVES; Caller Number: H Found CD of a CT scan for pt in fax folder for Dr. Angelo's team. Called pt to see if he wanted it back. Pt to speak with his dtr and see if we should hold it at office, send to him or destroy. Patient called and states he would like the CD mailed to his address on file. Normal [place] CBC AUTO DIFFon 2023 BASO # 0.0 103/ul Normal 0.0-0.1 [facility] Comment on above: Performed By: #### C BC #### [facility] [address] [address] [address] Arjun Menjivar Basophils/100 WBC (Bld) 0.4 % Normal 0.2-2.0 [facility] Comment on above: Performed By: #### C BC #### [facility] [address] [address] [address] Arjun Menjivar EO # 0.1 103/ul Normal 0.0-0.7 [facility] Comment on above: Performed By: #### C BC #### [facility] [address] [place] [address] Dr. Arjun Menjivar Eosinophils/100 WBC (Bld) 1.5 % Normal 0.9-7.0 [facility] Comment on above: Performed By: #### C BC #### [facility] [address] [address] [address] Arjun Menjivar Erythrocyte distribution width (RBC) [Ratio] 13.7 % Normal 11.0-15.0 [facility] Comment on above: Performed By: #### C BC #### [facility] [address] [place] [address] Dr. Arjun Menjivar Hematocrit (Bld) [Volume fraction] 41.9 % Critically low 42.0-54.0 [facility] Comment on above: Performed By: #### C BC #### [facility] [address] [address] [address] Arjun Menjivar Hemoglobin (Bld) [Mass/Vol] 13.7 g/dL Critically low 14.0-18.0 [facility] Comment on above: Performed By: #### C BC #### [facility] [address] [address] [address] Arjun Menjivar IG # 0.02 10e3/ul Normal 0.00-0.03 [facility] Comment on above: Performed By: #### C BC #### [facility] [address] [place] [address] Dr. Arjun Menjivar IG % 0.3 % Normal 0.0-0.5 [facility] Comment on above: Performed By: #### C BC #### [facility] [address] [place] [address] Dr. Arjun Menjivar LYMPH # 1.4 103/ul Normal 1.2-3.8 [facility] Comment on above: Performed By: #### C BC #### [facility] [address] [place] [address] Dr. Arjun Menjivar Lymphocytes/100 WBC (Bld) 16.9 % Critically low 20.5-60.0 [facility] Comment on above: Performed By: #### C BC #### [facility] [address] [place] [address] Dr. Arjun Menjivar MANUAL DIFF REQ NO Normal [facility] Comment on above: Performed By: #### C BC #### [facility] [address] [place] [address] Dr. Arjun Menjivar MCH (RBC) [Entitic mass] 28.8 pg Normal 25.9-34.0 [facility] Comment on above: Performed By: #### C BC #### [facility] [address] [place] [address] Dr. Arjun Menjivar MCHC (RBC) [Mass/Vol] 32.7 g/dL Normal 29.9-35.2 [facility] Comment on above: Performed By: #### C BC #### [facility] [address] [place] [address] Dr. Arjun Menjivar MCV (RBC) [Entitic vol] 88.2 fL Normal 80.0-94.0 [facility] Comment on above: Performed By: #### C BC #### [facility] [address] [place] [address] Dr. Arjun Menjivar MONO # 0.5 103/ul Normal 0.3-0.8 [facility] Comment on above: Performed By: #### C BC #### [facility] [address] [place] [address] Dr. Arjun Menjivar Monocytes/100 WBC (Bld) 5.9 % Normal 1.7-12.0 [facility] Comment on above: Performed By: #### C BC #### [facility] [address] [place] [address] Dr. Arjun Menjivar NEUT # 6.0 103/ul Normal 1.4-6.5 [facility] Comment on above: Performed By: #### C BC #### [facility] [address] [place] [address] Dr. Arjun Menjivar Neutrophils/100 WBC (Bld) 75.0 % Normal 43.0-75.0 [facility] Comment on above: Performed By: #### C BC #### [facility] [address] [place] [address] Dr. Arjun Menjivar Platelet mean volume (Bld) [Entitic vol] 11.4 fL Normal 9.5-13.5 [facility] Comment on above: Performed By: #### C BC #### [facility] [address] [place] [address] Dr. Arjun Menjivar PLT 169 103/ul Normal 150-450 [facility] Comment on above: Performed By: #### C BC #### [facility] [address] [place] [address] Dr. Arjun Menjivar RBC 4.75 106/ul Normal 4.70-6.10 [facility] Comment on above: Performed By: #### C BC #### [facility] [address] [place] [address] Dr. Arjun Menjivar WBC 8.0 103/ul Normal 4.0-11.0 [facility] Comment on above: Performed By: #### C BC #### [facility] [address] [place] [address] CSPINE WO CONon 3 CT CSPINE WO CON EXAMINATION: CT HEAD WO CON, CT CSPINE WO CON HISTORY: UNSPECIFIED INJURY OF HEAD, INITIAL ENCOUNTER COMPARISON: None. TECHNIQUE: CT examination of the head and cervical spine without IV contrast. Dose reduction techniques were achieved by using automated exposure control and/or adjustment of mA and/or kV according to patient size and/or use of iterative reconstruction technique. FINDINGS: Head: There are linear high density in the left temporal and parietal sulci, may represent subarachnoid hemorrhage. Follow-up CT or brain MRI is recommended for better evaluation. There is no mass effect or midline shift. The cerebral ventricles and sulci are normal. The brain demonstrates normal attenuation. basal cisterns are patent. There is bilateral subcortical and deep periventricular white matter chronic microvascular ischemia. Bilateral orbits, paranasal sinuses and mastoid air cells are patent. No skull base fracture. Cervical spine: There is normal cervical lordosis. No spondylolisthesis. No prevertebral soft tissue swelling. No evidence for fracture at the skull base or through the cervical spine. There is anterior bridging osteophyte, representing Diffuse idiopathic skeletal hyperostosis. There is disc desiccation at C6-C7. osteophyte, ligamentum flavum hypertrophy and facet hypertrophy resulting in mild neural foraminal narrowing and moderate to severe spinal canal stenosis at C6-C7 levels.. IMPRESSION: linear high density in the left temporal and parietal sulci, may represent subarachnoid hemorrhage. Follow-up CT or brain MRI is recommended for better evaluation. No cervical spine fracture. Moderate to severe spinal canal stenosis at C6-C7 levels. Cervical spine MRI is recommended for better evaluation. Critical results were NOTIFIED by TELEPHONE BY Dr. Salina Espinoza MD to [place] At 2023 4:04 PM EDT. Electronically authenticated by: SALINA ESPINOZA Date: 2023 16:25 Normal [facility] CT HEAD WO CONon 2023 CT HEAD WO CON EXAMINATION: CT HEAD WO CON HISTORY: UNSPECIFIED INJURY OF HEAD, INITIAL ENCOUNTER - TECHNIQUE: CT head without contrast. All CT scans at this facility use dose modulation, iterative reconstruction, and/or weight based dosing when appropriate to reduce radiation dose to as low as reasonably achievable. COMPARISON: CT brain 2023 RESULT: Post-operative change: None. Acute change/hemorrhage: Redemonstration small foci of subarachnoid hemorrhage along the left cerebral hemisphere. Compared with the CT from earlier today, there has been interval increase in the degree of subarachnoid hemorrhage in the left frontal operculum (series 5 image 22) and less conspicuity in the left parietal operculum and parietal lobe subarachnoid hemorrhage, likely related to redistribution. No new large focus of hemorrhage. No significant mass effect. No evidence of an acute infarct. Mass Lesion / Mass Effect: No evidence of an intracranial mass or extraaxial fluid collection. No significant mass effect. Chronic change: Patchy foci of low attenuation coefficient are present within the supratentorial white matter which is a nonspecific finding but likely represents moderate microvascular ischemia. Atherosclerotic calcification of the carotid siphons and vertebrobasilar arteries. Parenchyma: Moderate generalized volume loss. Ventricles: Ventricular enlargement concordant with the degree of parenchymal volume loss. Other: The calvarium, skull base, imaged paranasal sinuses, mastoids, orbits and extracranial soft tissues are unremarkable. IMPRESSION: Redistribution left cerebral hemisphere subarachnoid hemorrhage now more prominent along the left frontal operculum, compared with the prior CT from earlier today. No new hemorrhage identified. Chronic microvascular ischemic and involutional changes. Electronically authenticated by: TOSHIA ANDRES Date: 2023 21:30 Normal [facility] PROF 14(COMP METB)on 023 Albumin [Mass/Vol] 3.7 g/dL Normal 3.4-5.0 [facility] Comment on above: Performed By: #### C MP ####[facility] [address] [address]Dr. Arjun Menjivar Albumin/Globulin [Mass ratio] 1.1 {ratio} Normal [facility] Comment on above: Performed By: #### C MP ####[facility] [address] [address]Dr. Arjun Menjivar ALP [Catalytic activity/Vol] 87 U/L Normal 46-116 [facility] Comment on above: Performed By: #### C MP ####[facility] [address] [id number]. Arjun Menjivar ALT [Catalytic activity/Vol] 26 U/L Normal 16-63 [facility] Comment on above: Performed By: #### C MP ####[facility] [address] [address]Dr. Arjun Menjivar Anion gap [Moles/Vol] 9.2 mmol/L Normal [facility] Comment on above: Performed By: #### C MP ####[facility] [address] [address]Dr. Arjun Menjivar AST [Catalytic activity/Vol] 20 U/L Normal 15-37 [facility] Comment on above: Performed By: #### C MP ####[facility] [address] [address]Dr. Arjun Menjivar Bilirubin [Mass/Vol] 0.4 mg/dL Normal 0.2-1.0 [facility] Comment on above: Performed By: #### C MP ####[facility] [address] [place], [place] [address]Dr. rAjun Menjivar Calcium [Mass/Vol] 9.1 mg/dL Normal 8.5-10.1 [facility] Comment on above: Performed By: #### C MP ####[facility] [address] [place], [place] [address]Dr. Arjun Menjivar Chloride [Moles/Vol] 105 mmol/L Normal 98-107 [facility] Comment on above: Performed By: #### C MP ####[facility] [address] [place], [place] [address]Dr. Arjun Menjivar CO2 [Moles/Vol] 28.9 mmol/L Normal 21.0-32.0 [facility] Comment on above: Performed By: #### C MP ####[facility] [address] [place], [place] [address]Dr. Arjun Menjivar Creatinine [Mass/Vol] 1.23 mg/dL Normal 0.70-1.30 [facility] Comment on above: Performed By: #### C MP ####[facility] [address] [place], [place] [address]Dr. Arjun Otto EGFR-AF MICRONESIAN >60 Normal >=60 [facility] Comment on above: Performed By: #### C MP ####[facility] [address] [place], [place] [address]Dr. Arjun Otto EGFR-NON AF MICRONESIAN 57 mL/min/1.73m2 Critically low >=60 [facility] Comment on above: Performed By: #### C MP ####[facility] [address] [address]Dr. Arjun Menjivar Globulin (S) [Mass/Vol] 3.4 g/dL Normal [facility] Comment on above: Performed By: #### C MP ####[facility] [address] [address]Dr. Arjun Menjivar Glucose [Mass/Vol] 126 mg/dL Critically high 74-106 [facility] Comment on above: Performed By: #### C MP ####[facility] [address] [place], [place] [address]Dr. Arjun Menjivar Potassium [Moles/Vol] 4.1 mmol/L Normal 3.5-5.1 [facility] Comment on above: Performed By: #### C MP ####[facility] [address] [place], [place] [address]Dr. Arjun Menjivar Protein [Mass/Vol] 7.1 g/dL Normal 6.4-8.2 [facility] Comment on above: Performed By: #### C MP ####[facility] [address] [place], [place] [address]Dr. Arjun Menjivar Sodium [Moles/Vol] 139 mmol/L Normal 136-145 [facility] Comment on above: Performed By: #### C MP ####[facility] [address] [place], [place] [address]Dr. Arjun Menjivar Urea nitrogen [Mass/Vol] 12.0 mg/dL Normal 7.0-18.0 [facility] Comment on above: Performed By: #### C MP ####[facility] [address] [place], [place] [address]Dr. Arjun Menjivar Urea nitrogen/Creatinine [Mass ratio] 9.8 mg/mg Normal [facility] Comment on above: Performed By: #### C MP ####[facility] [address] [place], [place] [address]Dr. Arjun Menjivar PROTIMEon 2023 INR Coag (PPP) [Relative time] 2.90 {INR} Normal [facility] Comment on above: Performed By: #### P TT, PT ####[facility] [address] [id number]. Arjun Menjivar INR GUIDELINES SEE BELOW Normal [facility] Comment on above: Result Comment: PIOTR RED INR: 2.0 - 3.0 CONDITIONS NOT LISTED BELOW 2.5 - 3.5 FOR PROSTHETIC HEART VALVE REPLACEMENT 2.5 - 3.5 RECURRENT THROMBOSIS Performed By: #### P TT, PT ####[facility] [address] [id number]. Arjun Menjivar PT Coag (PPP) [Time] 28.9 s Critically high 9.0-11.6 [facility] Comment on above: Performed By: #### P TT, PT ####[facility] [address] [address]Dr. Arjun Menjivar PTTon 2023 aPTT Coag (Bld) [Time] 37.7 s Critically high 22.3-36.2 [facility] Comment on above: Performed By: #### P TT, PT ####[facility] [address] [id number]. Arjun Menjivar XR PELVIS 1_2 VIEWSon 2022 XR PELVIS 1_2 VIEWS EXAM: XR PELVIS 1_2 VIEWS HISTORY: UNSPECIFIED INJURY OF HEAD, INITIAL ENCOUNTER COMPARISON: None. TECHNIQUE: Single supine view of the pelvis FINDINGS: No acute fracture is seen. Joint alignment is normal. Joint spaces are preserved. Mild superior acetabular subchondral sclerosis is seen bilaterally. IMPRESSION: No acute fracture or malalignment seen on this single supine view of the pelvis. Mild degenerative changes of bilateral hip joints. 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 - cbd stones,FLUOROSCOPY TIME (MINUTES) - 2:43min,NUMBER OF FLUORO SPOT IMAGES - 35.00,mGy - 57.52 Findings: Fluoroscopic guidance was provided for ERCP. 2 minutes 43 seconds of fluoroscopy time was provided. 35 images are submitted. Please see the procedure report for additional information. Impression: Fluoroscopic guidance was provided for ERCP as discussed above [] Electronically signed by: Radha Haji MD 11/10/2022 8:01 AM BEHAVIORAL HEALTH ASSISTANT Technologist: EDITA Dictated By: RADHA HAJI MD Signed By: RADHA HAJI MD Signed Out: 11/10/22 09:01:42 Normal [place] Anesthesiaon 11-09-2022 Anesthesia Patient: YE GONCALVES Age: 77 years Sex: Male : 1945 Associated Diagnoses: None Author: LESLI SPRINGER DO Postoperative Information Time Seen: Date & Time 11/09/2022 08:53:00. Post Operative Info: Post operative day: Post Anesthesia Care Unit. Patient location: PACU. Assessment Postanesthesia assessment Vitals: Vital Signs (last value in last 48 hours) Temperature Temporal Artery: 36.5 degC (11/09/22 08:20:00) Respiratory Rate: 12 br/min (11/09/22 08:40:00) Peripheral Pulse Rate: 64 bpm (11/09/22 08:40:00) Heart Rate Monitored: 64 bpm (11/09/22 08:40:00) Systolic Blood Pressure: 113 mmHg (11/09/22 08:40:00) Diastolic Blood Pressure: 64 mmHg (11/09/22 08:40:00) SpO2: 99 % (11/09/22 08:40:00). Mental status: at preoperative baseline. Respiratory support: Normal oxygenation and ventilation. Pain: Controlled. Nausea status: absence of nausea and vomiting. Postoperative hydration status: euvolemic. Notes: Normothermia. [facility] Anesthesia Patient: YE GONCALVES Age: 77 years Sex: Male : 1945 Associated Diagnoses: None Author: LESLI SPRINGER DO DIAGNOSIS: ABDOMINAL PAIN Preoperative Information Procedure/ Case: . NPO greater than 8 hours. Anesthesia history Patient's history: negative. Family's history: negative. Review of Systems ALL SYSTEMS REVIEWED: CV, PULM, GI, , NEURO, HEPATIC, HEME, ENDO, PSYCH, MS HISTORY/ROS: OBESE PAROXYSMAL AFIB, on Coumadin HTN GERD CUBA ON CPAP EX SMOKER PANCREATIC CYST Health Status Allergies: Allergies (3) Active Reaction iodine topical tongue swells up penicillins None Documented sulfa drugs None Documented Current medications: Home Medications (11) Active amLODIPine 5 mg oral tablet 5 mg = 1 tabs, ORAL, DAILY aspirin 81 mg, DAILY benazepril 20 mg oral tablet 20 mg = 1 tabs, ORAL, DAILY carvedilol 6.25 mg oral tablet 6.25 mg = 1 tabs, ORAL, BID clonazePAM 1 mg oral tablet 1 mg = 1 tabs, ORAL, BID Lipitor 10 mg oral tablet 10 mg = 1 tabs, ORAL, DAILY omeprazole 20 mg oral delayed release capsule 20 mg = 1 caps, ORAL, DAILY propafenone 325 mg oral capsule, extended release 325 mg = 1 caps, ORAL, [id number] trazodone = Desyrel 50 mg, ORAL, BID warfarin 5 mg oral tablet 5 mg = 1 tabs, ORAL, DAILY warfarin 7.5 mg oral tablet 7.5 mg = 1 tabs, ORAL, TUESDAY LABORATORY DATA Chemistry BMP Plus Mag No qualifying data available. Hematology CBC brief [address] No qualifying data available. Coagulation PT INR [address] No qualifying data available. Test No qualifying data available. Histories Past Medical History: No qualifying data available Procedure history: Endoscopic Retrograde Cholangiopancreatography (ERCP). (21620) on 11/09/2022 at 77 Years. Endoscopic Retrograde Cholangiopancreatography (ERCP). (91204) on 08/14/2021 at 76 Years. Esophagogastroduodenoscopy , flexible, transoral; with endoscopic ultrasound examination limited to the esophagus, stomach or duodenum, and adjacent structures (17799) on 07/10/2021 at 76 Years. Social History Social & Psychosocial History Social History Alcohol Denies Alcohol Use Substance Abuse Denies Substance Abuse Tobacco Denies Tobacco Use 4 or less cigarettes(less than 1/4 pack)/day in last 30 days Tobacco Use:. Cigarettes Psychosocial History No active psychosocial history has been recorded . Physical Examination VITALS Vital Signs (last value in last 48 hours) Temperature Temporal Artery: 36.1 degC Low (11/09/22 07:09:00) Respiratory Rate: 13 br/min (11/09/22 07:09:00) Heart Rate Monitored: 69 bpm (11/09/22 07:09:00) Systolic Blood Pressure: 145 mmHg High (11/09/22 07:09:00) Diastolic Blood Pressure: 80 mmHg (11/09/22 07:09:00) SpO2: 96 % (11/09/22 07:09:00)Height and Weight (last value in last 48 hours) Height/Length Dosin cm (11/09/22 07:09:00) Weight Dosin kg (11/09/22 07:09:00) General: Alert and oriented. Airway: Mallampati classification: II (soft palate, fauces, uvula visible). Assessment and Plan [place] [employer]esthesi[employer] (ASA) physical status classification: Class III. Anesthetic Preoperative Plan Anesthetic technique: Monitored anesthesia care. Induction: intravenously. Special monitoring: Standard ASA monitors.. Risks discussed: nausea, vomiting, sore throat, dental injury, allergic reaction, serious complications, Risks explained in detail as listed on the consent form. The patient's questions were answered to satisfaction. The patient is OK to proceed. . Informed consent: signed by patient. Notes. This report was completed using voice recognition software. Verbal misinterpretations may occur. [facility] ENDO Initial Data VS HW Prep -Texton 11-09-2022 ENDO Initial Data VS HW Prep-Text Endoscopy Intial Data VS HW Prep Entered On: 11/09/2022 7:10 EST Performed On: 11/09/2022 7:09 EST by Sg GAVIN, Kaylyn VS HW Prep Systolic Blood Pressure : 145 mmHg (HI) Diastolic Blood Pressure : 80 mmHg Heart Rate Monitored : 69 bpm Respiratory Rate : 13 br/min SpO2 : 96 % Temperature Temporal Artery : 36.1 degC (LOW) NPO Since : 11/09/2022 04:20 EST Height/Length Dosing : 182 cm(Converted to: 5.97 ft, 71.65 in) Weight Dosing : 106 kg(Converted to: 3,739.040 oz, 233.690 lb) Last Food Intake : 11/08/2022 18:30 EST Last Fluid Intake : 11/09/2022 04:20 EST [facility] 7:09 EST Anesthesia/Transfusions Anesthesia/Transfusions : Prior anesthesia Accept Blood Products if Necessary : Yes Kaylyn Bettencourt RN 11/09/2022 7:09 EST [facility] ENDO Outpatient Admission Da ta-Texton 11-09-2022 ENDO Outpatient Admission Data-Text Endoscopy OP Admission Data Entered On: 11/09/2022 7:12 EST Performed On: 11/09/2022 7:09 EST by Sg GAVIN, Kaylyn Assessment Mobility : Ambulatory Mental Status : Alert Oriented : Person, Place, Time Pacemaker/AICD : na Heart : Regular Lungs : Clear Abdomen : Soft Bowel Sounds All Quadrants : Present Prosthesis/Metal : BL knees Glasses : Yes Dentures : Yes Person Driving Pt Home : daughter Amna Surgeon Speak with Magazine Designer : Yes Voided : No Pain Level and Site : 0 Sg GAVIN [facility] 11/09/2022 7:09 EST Present on Admission Medical Devices : None Medical Devices for Med Administration : None Rosalinda Bettencourt RNa 11/09/2022 7:09 EST Vikas Coma Eye Opening Response Vikas : Spontaneously Best Verbal Response [place] : Oriented Best Motor Response Vikas : Obeys simple commands Vikas Coma Score : 15 Sg GAVIN [facility] 11/09/2022 7:09 EST Advance Directive *Advance Directive : Yes Kaylyn Bettencourt RN 11/09/2022 7:09 EST Outpatient Fall Risk GEN_Fall Risk Indicators_[id number] : Age 65 or greater, Medications altering equilibrium or cognitive judgement Fall Risk Band On : Yes Rosalinda Bettencourt RNa 11/09/2022 7:09 EST Screening-Safety Domestic Concerns : None Feeling Down, Depressed, Hopeless : Not at all Little Interest - Pleasure in Activities : Not at all Initial Depression Screen Score : 0 Depression Screening Score 0 : No Rosalinda Bettencourt RNa 11/09/2022 7:09 EST Education Barriers to Learning : None evident TeachBack Methodology : TeachBack, Demonstration, Explanation, Printed Material Kaylyn Bettencourt RN 11/09/2022 7:09 EST ENDO Education Activity Expectations : Verbalizes understanding Anesthesia/Sedation : Verbalizes understanding Endo Post Procedure Care : Verbalizes understanding Follow-Up Care/Appointment : Verbalizes understanding Safety : Verbalizes understanding Sg GAVIN, Kaylyn - 11/09/2022 7:09 EST [facility] Inpatient Patient Summaryon 11-09-2022 Inpatient Patient Summary [facility] Discharge Instructions [address] [place] [address] \.br\(Patient Copy)\.br\ \.br\ \.br\Name: TITO GONCALVES : 1945 \.br\Diagnosis: \.br\ \.br\Allergies: sulfa drugs; penicillins; iodine topical\.br\ \.br\Registration Date: 11/09/22\.br\.br\.br\ \.br\ Current Date Time: 11/09/2022 08:44:54 \.br\ \.br\Address: [facility] [address] [facility] [address] \.br\Phone: [phone] \.br\ \.br\Primary Care Provider: \.br\Name: AUGUSTINE METZ\.br\Phone: [phone] \.br\ \.br\Thank you for choosing [facility] for your care. You are very important to us. Our goal is to demonstrate our high quality medical care and provide you with a very good patient experience.\.br\ You may receive a survey about our service. Please take the time to complete the survey and return it so we can continue to enhance our service.\.br\ Thank you again for allowing [facility] to care for your medical needs. If you have any questions about your care or follow up information please contact your doctor.\.br\.br\Follow-up Instructions\.br\.br\.br \With: Address: When: \.br\PUJA HOLBROOK [facility] [address] [address], [address] [place] [address]\.br\ Business (1) Within Call for Appointment \.br\.br\.br\.br\.br\P rocedure Images\.br\ Images \.br\Procedure images: \.br\.br\ \.br\ERCP_0006.jpg \.br\ERCP_0005.jpg \.br\ERCP_0004.jpg \.br\ \.br\ERCP_0003.jpg \.br\ERCP_0002.jpg \.br\ERCP_0001.jpg \.br\. \.br\.br\Medication Information\.br\Only Take The Medicines On This List. \.br\Keep This List and Bring It To Your Next Appointment. \.br\Medicines To Take At Home: \.br\ Medicine Name\.br\ (Generic Name) Amount to Take How to Take it How Often to Take it Additional Instructions Next Dose Due \.br\ amLODIPine 5 mg oral tablet\.br\(amlodipine) 5 mg By Mouth DAILY \.br\ aspirin\.br\(aspirin) 81 mg DAILY \.br\ Lipitor 10 mg oral tablet\.br\(atorvastatin) 10 mg By Mouth DAILY \.br\ benazepril 20 mg oral tablet\.br\(benazepril) 20 mg By Mouth DAILY \.br\ carvedilol 6.25 mg oral tablet\.br\(carvedilol) 6.25 mg By Mouth TWICE A DAY \.br\ clonazePAM 1 mg oral tablet\.br\(clonazepam) 1 mg By Mouth TWICE A DAY \.br\ omeprazole 20 mg oral delayed release capsule\.br\(omeprazole) 20 mg By Mouth DAILY \.br\ propafenone 325 mg oral capsule, extended release\.br\(propafenone) 325 mg By Mouth EVERY TWELVE HOURS (do not crush)\.br\.br\.br\.br\ \.br\ trazodone = Desyrel\.br\(trazodone = desyrel) 50 mg By Mouth TWICE A DAY \.br\ warfarin 5 mg oral tablet\.br\(warfarin = jantoven, coumadin) 5 mg By Mouth DAILY \.br\ warfarin 7.5 mg oral tablet\.br\(warfarin = jantoven, coumadin) 7.5 mg By Mouth TUESDAY \.br\.br\Understanding your home medicine is important to keeping you healthy. If you are taking medications that are not on the preceding list, please call your doctor to see if you are to continue taking that medication. It is important that you do not skip or make up doses. If you are ordered an antibiotic, finish taking all the medicine unless your doctor tells you otherwise. Call your doctor if you have any questions or problems. Take the medicine list with you to all follow up appointments.\.br\.br\Pat ient education materials, if any, will display below\.br\[facility] ENDOSCOPY DEPARTMENT\.br\.br\FOLLOW UP CARE\.br\? For biopsy results, please call your doctor?s office in six (6) business days. \.br\.br\BECAUSE YOU WERE MEDICATED\.br\? DO NOT drive, operate machinery, make important decisions, sign legal documents, or perform activities that require coordination or balance for 24 hours. \.br\? Rest for the remainder of the day. You may resume normal activity tomorrow, unless your doctor told you otherwise. \.br\? For your safety, have a responsible adult with you for the remainder of the day and overnight. \.br\.br\HOME MEDICATIONS\.br\? Continue taking your home medications as directed. \.br\? Certain medicines may increase your risk of bleeding and should only be resumed as directed by your doctor. These include Motrin, Advil, Aleve, all NSAIDs, Aspirin, Plavix, Coumadin, and other blood thinners/anticoagulants. \.br\DIET\.br\? Drink plenty of fluids today, unless your doctor told you otherwise. \.br\? Do not drink any kind of alcohol, including beer or wine. \.br\? Resume your diet as instructed. \.br\.br\GO TO THE EMERGENCY ROOM IF YOU NOTICE ANY OF THE FOLLOWING: \.br\These could be signs of an infection or a complication.\.br\.br\? Fever greater than 101 degrees\.br\? Persistent vomiting\.br\? Severe abdominal pain, other than gas cramps\.br\? Chest pain and/or shortness of breath\.br\? Any bleeding and/or black tarry sto (more content not included)... [facility] OR Nursing Record - Endoon 0 11-09-2022 OR Nursing Record - Endo OR Nursing Record - Endo Summary Primary Physician: PUJA HOLBROOK MD Finalized Date/Time: 11/09/22 08:27:34 Pt. Name: TITO GONCALVES Yehuda David/Sex: 1945 Male Med Rec #: [id number] Physician: Financial #: [id number] Pt. Type: A Room/Bed: / Admit/Disch: 11/09/22 06:11:45 - Institution: Case Times - Endo Entry 1 Patient In Room Time 11/09/22 07:43:00 Out Room Time 11/09/22 08:24:00 Anesthesia Facility Times Induction Time 11/09/22 07:48:00 Stop Time 11/09/22 08:15:00 [facility] Protocol Yes Completed Surgery Start Time 11/09/22 07:50:00 Stop Time 11/09/22 08:15:00 Last Modified By: Martha Haider RN 11/09/22 08:21:39 Surgical Procedures - Endo Entry 1 Procedure ERCP Modifiers None Surgeon Procedure ERCP Primary Procedure Yes Description Primary Surgeon PUJA HOLBROOK MD Start 11/09/22 07:50:00 Stop 11/09/22 08:15:00 Anesthesia Type MAC Surgical Service SN - Gastroenterology Last Modified By: Martha Haider RN 11/09/22 08:14:54 General Case Data - Endo Entry 1 Case Information OR Endo 04 Schedule Type Scheduled Case Level Endo 03 Wound Class Clean Specialty SN - Gastroenterology ASA Class 3 Procedure History Yes Documented Diagnosis Preop Diagnosis ABDOMINAL PAIN Postop Diagnosis GE junction Dilation. Foreign body bile duct. Filling defect bile duct Last Modified By: Martha Haider RN 11/09/22 08:20:19 Case Attendance - Endo Entry 1 Entry 2 Entry 3 Case Attendee PUJA HOLBROOK MD, RN, Martha Solomon RN, Minnie Role Performed Surgeon Primary Table Setter Primary Scrub Primary Time In 11/09/22 07:43:00 11/09/22 07:43:00 11/09/22 07:43:00 Time Out 11/09/22 08:24:00 11/09/22 08:24:00 11/09/22 08:24:00 Procedure ERCP(None) ERCP(None) ERCP(None) Last Modified By: Vitaly GAVIN, Martha Haider RN, Martha Haider RN, Martha 11/09/22 08:21:41 11/09/22 08:21:41 11/09/22 08:21:41 Entry 4 Entry 5 Entry 6 Case Attendee Dena GAVIN, Josselin SPRINGER DO, LESLI PALMA, JYOTI Role Performed Table Setter Secondary Anesthesiologist Primary Anesthesia Asst/TRAVEL MONEY ADVISOR Time In 11/09/22 07:43:00 11/09/22 07:43:00 11/09/22 07:43:00 Time Out 11/09/22 08:24:00 11/09/22 08:24:00 11/09/22 08:24:00 Procedure ERCP(None) ERCP(None) ERCP(None) Last Modified By: Vitaly GAVIN, Martha Haider RN, Martha Haider RN, Martha 11/09/22 08:21:41 11/09/22 08:21:41 11/09/22 08:21:41 Delays - Endo Entry 1 Delay Reason No Delay Last Modified By: Martha Haider RN 11/09/22 07:16:06 Vital Signs to IView - Endo NOT APPLICABLE Entry 1 Last Modified By: Cautery - Endo NOT APPLICABLE Entry 1 Last Modified By: Endoscopy - Endo Entry 1 Dilators Balloon Scope Serial Number [id number] Last Modified By: Martha Haider RN 11/09/22 08:14:44 General Comments: GE jx- Dilation 15mm-18mm 15mm X 30 sec 18mm X 30 sec Medication Administration - Endo NOT APPLICABLE Entry 1 Last Modified By: X-Ray and Images Entry 1 X-Ray Type C-Arm Site ABDOMEN Protective Devices No Radiological Tech Golak RT Simran Applied to Patient Last Modified By: Martha Haider RN 11/09/22 07:45:20 Blood Products - Endo NOT APPLICABLE Entry 1 Last Modified By: Implants/Tissue Products - Endo NOT APPLICABLE Entry 1 Last Modified By: Endo Specimens/Cultures NOT APPLICABLE Entry 1 Last Modified By: Case Comments Finalized By: Marhta Haider RN Document Signatures Signed By: Martha Haider RN 11/09/22 08:23 Martha Haider RN 11/09/22 08:27 [facility] Operative Reporton Operative Report Patient: YE GONCALVES Age: 77 years Sex: Male : 1945 Associated Diagnoses: None Author: PUJA HOLBROOK MD Pre-Procedure Procedure Date: 11/09/2022 . Procedure Type: Endoscopic retrograde cholangiopancreatogram with removal of intra-ductal calculus. Procedure provider: Performed by PUJA HOLBROOK MD. Indications: Treatment of ascending cholangitis. Monitoring: See anesthesia record. Procedure See anesthesia record for sedation given during procedure. The patient was positioned starting in the prone position. Endoscope type used was duodenoscope. The endoscope was lubricated then introduced orally. The scope was advanced to the duodenum. Endoscopy Findings Side-viewing duodenoscope was advanced to GE junction scope could not be advanced any further EGD scope was advanced tight GE junction was noted dilated to 18 mm Examined stomach and duodenum appeared normal Side-viewing duodenoscope advanced to second portion of the duodenum Major papula showed evidence of previous biliary sphincterotomy Bile duct cannulated with Rx 44 sphincterotome loaded 0.35 guidewire Cholangiogram obtained showed filling defects in the bile duct Balloon sweeps were done with an extractor balloon inflated to occlude the lumen Multiple pieces of food debris was removed from the bile duct Final sweeps were clear of any debris final occlusion cholangiogram showed the bile duct free of any filling defects Stomach decompressed procedure terminated Images Procedure images: ERCP_0006.jpg ERCP_0005.jpg ERCP_0004.jpg ERCP_0003.jpg ERCP_0002.jpg ERCP_0001.jpg . Post-Procedure The patient tolerated the procedure well. Complications encountered during the procedure were none. Estimated blood loss during the procedure was none. No specimens were collected. Indomethacin prophylaxis for post-exposure prophylaxis was administered in suite. Impression and Plan Endoscopic Retrograde Cholangiopancreatography Procedure: Pre Procedure Diagnosis: Same as pre op indication/diagnosis. Post Procedure Diagnosis: Food in bile duct. Course: Progressing as expected. Orders: Orders Patient Care: Ambulate (Order): 11/09/2022 08:26 EST, with assistance, Constant Order Post Procedure Location of Care (Order): 11/09/2022 08:26 EST, SAME BED LOCATION Communication CONSTANT Order (Order): 11/09/2022 08:26 EST, Constant Order, Discharge patient after the following assessments are completed., Athe the criteria commensurate with pre-admission status. See departmental policies for discharge criteria specific to procedures performed. Nutrition Services/Dietary: Diet Order (Order): 11/09/2022 08:26 EST, Clear Liquids. Education and Follow-up: Patient Instructions: PUJA HOLBROOK, Gastroenterology Within Call for Appointment. Notes: Follow-up in clinic as scheduled. [facility] Comment on above: Order Comment: Ida sevilla Attachment [id number] can be viewed in source system Missing Attachment [id number] can be viewed in source system Missing Attachment [id number] can be viewed in source system Missing Attachment [id number] can be viewed in source system Missing Attachment [id number] can be viewed in source system Missing Attachment [id number] can be viewed in source system Result Comment: PACU Phase I - Endoon 2022 PACU Phase I - Endo PACU Phase I - Endo Summary Primary Physician: PUJA HOLBROOK MD Finalized Date/Time: 11/09/22 08:55:35 Pt. Name: TITO GONCALVES/Sex: 1945 Male Med Rec #: [id number] Physician: Financial #: [id number] Pt. Type: A Room/Bed: / Admit/Disch: 11/09/22 06:11:45 - Institution: PACU I Case Times - Endo Entry 1 In PACU I 11/09/22 08:25:00 Ready for Transfer 11/09/22 09:19:00 Last Modified By: Sariah Schreiber RN 11/09/22 08:55:34 Finalized By: Sariah Schreiber RN Document Signatures Signed By: Sariah Schreiber RN 11/09/22 08:55 [facility] POC Glucoseon 11-09-2022 Glucose [Mass/Vol] 131 mg/dL High 72-100 [facility] Comment on above: Performed By: #### 1 [id number] ####[facility] [id number] [place] [id number] Medical Director: Diogo Carcamo MD Preop - Endoon 11-09-2022 Preop - Endo Preop - Endo Summary Primary Physician: PUJA HOLBROOK MD Finalized Date/Time: 11/09/22 07:13:53 Pt. Name: TITO GONCALVES./Sex: 1945 Male Med Rec #: [id number] Physician: Financial #: [id number] Pt. Type: A Room/Bed: / Admit/Disch: 11/09/22 06:11:45 - Institution: Preop - Case Times - Endo Entry 1 Patient Arrival Time 11/09/22 06:31:00 Patient Ready for 11/09/22 07:11:00 Surgery Report Given to n/a Last Modified By: Kaylyn Bettencourt RN 11/09/22 07:13:51 Finalized By: Kaylyn Bettencourt RN Document Signatures Signed By: Kaylyn Bettencourt RN 11/09/22 07:13 [facility] Provider Letter - Ambulatory on 11-09-2022 Provider Letter - Ambulatory AUGUSTINE METZ, [address] [place] [address] RE: TITO GONCALVES 11/09/2022 Dear AUGUSTINE METZ This document is confidential and intended solely for the use of the individual or entity to which they are addressed. If you are not the named addressee, please disregard and do not disseminate, distribute or copy this information. If you are not the intended recipient you are notified that any disclosure of this information and its contents are strictly prohibited. If you have any questions about this document, please contact our office at . Sincerely, Dr. Angelo The following document(s) were included in the letter: November 09, 2022 08:20:00 EST - (11/09/2022) GI ERCP with Anesthesia [facility] Protocol/Pre-Proc TimeOut-Texton 11-09-2022 [facility] Protocol/Pre-Proc TimeOut-Text [facility] Protocol Entered On: 11/09/2022 7:13 EST Performed On: 11/09/2022 7:09 EST by Kaylyn Bettencourt RN All Procedures Procedure this U.P. is completed for: : ERCP Date/Time Pre-Procedure Verification : 11/09/2022 07:12 EST Procedure Location : Endoscopy Pre-Procedure Verification : Patient Identification (Name & Date), Informed Consent (Signed, Dated), Procedure Identified by Patient, Site Identification N/A Kaylyn Bettencourt RN - 11/09/2022 7:09 EST Allergy (As Of: 11/09/2022 07:13:21 EST) Allergies (Active) iodine topical Estimated Onset Date: Unspecified ; Reactions: tongue swells up ; Created By: Kaylyn Bettencourt RN; Reaction Status: Active ; Category: Drug ; Substance: iodine topical ; Type: Allergy ; Severity: Severe ; Updated By: Kaylyn Bettencourt RN; Reviewed Date: 11/09/2022 6:37 EST penicillins Estimated Onset Date: Unspecified ; Created By: Blanca Bazzi; Reaction Status: Active ; Category: Drug ; Substance: penicillins ; Type: Allergy ; Updated By: Blanca Bazzi; Reviewed Date: 10/26/2022 14:56 EST sulfa drugs Estimated Onset Date: Unspecified ; Created By: Blanca Bazzi; Reaction Status: Active ; Category: Drug ; Substance: sulfa drugs ; Type: Allergy ; Updated By: Blanca Bazzi; Reviewed Date: 10/26/2022 14:56 EST Beta Dominic Beta Dominic History : Patient self administered Date/Time Pre-Procedure Verification : 11/08/2022 20:00 EST Kaylyn Bettencourt RN - 11/09/2022 7:09 EST Site Marking Site Marking : Procedure is Exempt From Marking Kaylyn Bettencourt RN - 11/09/2022 7:09 EST Surgery / Sedation Correct Procedure : Accurate Procedure Consent Form, Correct Procedure, Correct Patient Position Date/Time of OR Procedure Sedation Checklist : 11/09/2022 07:48 EST Martha Haider RN - 11/09/2022 7:48 EST OR Procedure & Sedation Verification : History & Physical (within 30 days), Nursing Assessment Completed Relevant Images : N/A Relevant Diagnostic Tests : N/A Blood Products : N/A Implants / Equiment : N/A Antibiotics : N/A Safety Precautions : Safety Precautions Based on Patient Medication or History Kaylyn Bettencourt RN - 11/09/2022 7:09 EST Final Verification Date/Time : 11/09/2022 07:48 EST Verification : Patient Identified (Name and Date), Correct Procedure, All Team Members are in Agreement Laterality : N/A Martha Haider RN - 11/09/2022 7:48 EST [facility] Phone Msgon 11-08-2022 Phone Msg - From: Lori Cintron MA Sent: 11/08/2022 13:03:57 EST Caller Name: TITO GONCALVES; Caller Number: H Pt called to ask if he should take heart pills prior to procedure with Dr. Angelo 11/09, ERCP. In question: propafenone, carvedilol and benazepril and if he can take them around one hour prior to arrival which would be 5:30am. Pt was asked to speak with his control analyst'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 [facility] MRI ABDOMEN WO CONon 023 MRI ABDOMEN WO CON EXAMINATION: MRI ABD OMEN WO CON HISTORY: Cyst of pancreas COMPARISON: CT abdomen pelvis 11/01/2021, MRI abdomen 03/15/2021 TECHNIQUE: A comprehensive MRI examination of the abdomen was performed to optimize visualization of suspected pathology. Images were obtained both before and after intravenous administration of Dotarem contrast. FINDINGS: LIVER: No enlargement, atrophy, abnormal density, or significant focal lesion. BILIARY: Cholecystectomy. PANCREAS: Collection of fluid-filled benign-appearing collection of cysts within distal tail of pancreas, 4.2 x 4.1 x 3.3 cm. No abnormal duct dilation or appreciable mass. Moderate atrophy of pancreas. SPLEEN: No enlargement or focal lesion. KIDNEYS: A few benign-appearing cysts bilaterally. ADRENALS: Stable, predominantly fatty right adrenal mass favoring a benign adenoma. AORTA/VASCULAR: No aneurysm or dissection. RETROPERITONEUM: No mass or adenopathy. BOWEL/MESENTERY: Diverticulosis of descending colon without acute inflammatory changes. No visible mass, obstruction, or bowel wall thickening. ABDOMINAL WALL: No mass or hernia. BONES: No bony lesion or fracture. LUNG BASES: No visible pleural disease. Lung bases not well assessed with MRI. OTHER: Negative. IMPRESSION: 1. Grossly stable collection of benign-appearing sclerosis within tail of pancreas. 2. 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 3. Bilateral small renal lesions favoring benign cysts. Electronically authenticated by: SANTOS DC Date: 2022-11-01 09:53 Normal [facility] Phone Msgon 10-28-2022 Phone Msg - From: Fela Alexandre To: Caren Carvalho RN; Blanca Bazzi; Sent: 10/28/2022 09:12:23 EST Subject: Cardiac Clearance Caller Name: TITO GONCALVES; Caller Number: H Patient asking when to stop Coumadin. Colonoscopy scheduled 11/09/21 From: Blanca Bazzi To: Fela Alexandre; Sent: 10/28/2022 09:15:22 EST Subject: RE: Cardiac Clearance Caller Name: TITO GONCALVES; Caller Number: H Did he say who his Nitro Man was? From: Caren Carvalho RN To: Blanca Bazzi; Fela Alexandre; Sent: 10/28/2022 09:50:53 EST Subject: RE: Cardiac Clearance Caller Name: TITO GONCALVES; Caller Number: H He sees Dr. Metz sent LM for pt-Per Dr. Metz, pt can be off his Coumadin 5 days prior to his procedure. [facility] [place] AMB GI Physician Progress No irma 10-26-2022 AMB GI Physician Progress Note Chief Complaint Abdominal pain History of Present Illness 77-year-old male with recurrent history of choledocholithiasis last ERCP was done a year ago in [place] Patient had admission in hospital in [place] with fever and chills Patient has had recurrent episodes of right upper quadrant abdominal pain consistent with choledocholithiasis Patient says every year he developed stones And he has had so for over 10 years now No nausea no vomiting Currently no abdominal pain appetite good weight stable Physical Exam Vitals & Measurements Systolic Blood Pressure: 164 mmHg High (10/26/22 14:56:00) Diastolic Blood Pressure: 89 mmHg (10/26/22 14:56:00) Temperature Oral (F): 97.6 degF (10/26/22 14:56:00) Peripheral Pulse Rate: 63 bpm (10/26/22 14:56:00) Mean Arterial Pressure: 114 mmHg (10/26/22 14:56:00) Height/Length Measured: 183 cm (10/26/22 14:56:00) Weight Measured: 63 kg (10/26/22 14:56:00) Body Mass Index Measured: 18.81 kg/m2 (10/26/22 14:56:00) Weight Measured - lbs2: 139 lb (10/26/22 14:56:00) Height/Length Measured - in2: 72 in (10/26/22 14:56:00) Body Mass Index Measured English2: 18.85 kg/m2 (10/26/22 14:56:00) BSA: 1.79 m2 (10/26/22 14:56:00) Ht/Wt Measurement Refused by Patient?2: No (10/26/22 14:56:00) Depression Screening Scores Initial Depression Screen Score: 0 (10/26/22 14:56:00) Fall Risk Assessment Is the patient ambulatory (mobile): Yes (10/26/22 14:56:00) Have you had a fall within the past: No (10/26/22 14:56:00) Have you had 2 or more falls in the past: No (10/26/22 14:56:00) Constitutional: Well nourished, well developed. Appears to be in no acute distress Eyes: No pallor, No icterus Neck: Supple, no thyromegaly Respiratory: Lungs are clear bilaterally Cardiovascular: Rhythm is regular Extremities: No edema Abdomen: Abdomen is soft, non-tender, and non-distended without guarding, rigidity, or rebound tenderness. No mass, No organomegaly. Bowel sounds normal Skin: Skin is warm and dry Psychologic: Alert and cooperative. Mood and affect appropriate Neurologic: Grossly intact, no focal motor or sensory deficit, Normal power and strength Assessment/Plan This Visit Diagnosis 1. Abdominal pain R10.9 Abdominal pain concern for recurrent choledocholithiasis will evaluate with MRCP and proceed with ERCP after Ordered: AMB Follow - Up Appt Amb, 10/26/2022 16:13:00 EST, 4 weeks AMB Office/Outpt Est Pt Mod MDM / 30-39 min 18875, 10/26/2022 16:13:00 EST, Abdominal pain / Pancreatic cyst MR CP, 10/26/2022, Routine, PAIN, Abdominal pain / Pancreatic cyst 2. Pancreatic cyst K86.2 Pancreatic cyst stable very low CEA levels suggestive of simple serous cyst versus inflammatory cyst. Asymptomatic Ordered: AMB Follow - Up Appt Amb, 10/26/2022 16:13:00 EST, 4 weeks AMB Office/Outpt Est Pt Mod MDM / 30-39 min 16447, 10/26/2022 16:13:00 EST, Abdominal pain / Pancreatic cyst MR CP, 10/26/2022, Routine, PAIN, Abdominal pain / Pancreatic cyst Problem List/Past Medical History Ongoing Abdominal pain Abnormal LFTs (liver function tests) Arthritis Choledocholithiasis Diabetes Gallbladder disease GERD (gastroesophageal reflux disease) Hypertension Irregular heart rhythm Kidney stones Pancreatic cyst Sleep apnea Historical No qualifying data Procedure/Surgical History Endoscopic Retrograde Cholangiopancreatography (ERCP).: 08/14/21 Esophagogastroduodenoscopy , flexible, transoral; with endoscopic ultrasound examination limited to the esophagus, stomach or duodenum, and adjacent structures: 07/10/21 Medications amLODIPine 5 mg oral tablet, 5 mg= 1 tabs, ORAL, DAILY aspirin, 81 mg, DAILY benazepril 20 mg oral tablet, 20 mg= 1 tabs, ORAL, DAILY carvedilol 6.25 mg oral tablet, 6.25 mg= 1 tabs, ORAL, BID clonazePAM 1 mg oral tablet, 1 mg= 1 tabs, ORAL, BID Lipitor 10 mg oral tablet, 10 mg= 1 tabs, ORAL, DAILY omeprazole 20 mg oral delayed release capsule, 20 mg= 1 caps, ORAL, DAILY propafenone 325 mg oral capsule, extended release, 325 mg= 1 caps, ORAL, [id number] trazodone = Desyrel, 50 mg, ORAL, BID warfarin 5 mg oral tablet, 5 mg= 1 tabs, ORAL, DAILY warfarin 7.5 mg oral tablet, 7.5 mg= 1 tabs, ORAL, TUESDAY Allergies penicillins sulfa drugs Social History Alcohol - Denies Alcohol Use Substance Abuse - Denies Substance Abuse Tobacco - Denies Tobacco Use 4 or less cigarettes(less than 1/4 pack)/day in last 30 days Tobacco Use:. Cigarettes Family History Breast cancer..: Mother. Liver cirrhosis....: Father. Care Team Primary Care Physician AUGUSTINE METZ [phone] Attending Physician PUJA HOLBROOK MD [phone] . Health Maintenance Pending (in the next year) There are no current recommendations pending Satisfied (in the past 1 year) There are no satisfied recommendations within the defined date range [facility] [place] Comprehensive Intake - Texto n 10-26-2022 Comprehensive Intake - Text Comprehensive Intake Entered On: 10/26/2022 14:56 EST Performed On: 10/26/2022 14:56 EST by Lori Cintron MA Summary Advance Directive : Yes Bladder Control Issues? : No Urine Leakage? : No Presence or absence of urinary incontinence assessed : Yes CPT-II Medication list doc'd in medical record : Yes Influenza immunization administered or previously received : Yes Pneumococcal vaccine administered or previously received : Yes Lori Cintron MA - 10/26/2022 14:56 EST Measurements Weight Measured : 63 kg(Converted to: 138 lb 14 oz, 138.891 lb) Height/Length Measured : 183 cm(Converted to: 6 ft 0 in, 72.05 in) Body Mass Index Measured : 18.81 kg/m2 Body Mass Index documented : Yes Weight Measured - lbs : 139 lb(Converted to: 139 lb 0 oz, 63 kg) Height/Length Measured - in : 72 in(Converted to: 6 ft 0 in, 183 cm) Body Mass Index Measured Bahraini : 18.85 kg/m2 BSA Bahraini : 1.79 m2 Ht/Wt Measurement Refused by Patient? : No Abdulaziz LISALori - 10/26/2022 15:44 EST Vitals Systolic Blood Pressure : 164 mmHg (HI) Diastolic Blood Pressure : 89 mmHg Mean Arterial Pressure : 114 mmHg Pulse Rate : 63 bpm Last Systolic BP : greater than or equal to 140 mmHg Last Diastolic BP : 80-89 mmHg Temperature Oral (F) : 97.6 degF(Converted to: 36 degC) Primary Pain Location : Abdomen Primary Pain Comments : Intermittent ABD pain 0-9/10 Require BP : Yes Abdulaziz LISALori - 10/26/2022 15:44 EST Pain Present : No actual or suspected pain Pain : 0 Pain severity quantified : No pain present Lori Cintron MA - 10/26/2022 14:56 EST Infection Screening - Ambulatory Exposure AND/OR close contact with a person under investigation or laboratory-confirmed COVID-19 individual within 14 days of symptom onset AND/OR any of the following: : No Do you live/work in a high risk situation (congregated living, hemodialysis, infusion clinic, fpc, assisted living, chcf, homeless senior living, etc.)? : No Lori Cintron MA - 10/26/2022 14:56 EST Depression Screening Is patient currently : None of the Below Feeling Down, Depressed, Hopeless : Not at all Little Interest - Pleasure in Activities : Not at all Initial Depression Screen Score : 0 Depression Screening Score 0 : No Lori Cintron MA - 10/26/2022 14:56 EST Problems (As Of: 10/26/2022 15:47:21 EST) Problems(Active) Abnormal LFTs (liver function tests) (SNOMED CT :080255369 ) Name of Problem: Abnormal LFTs (liver function tests) ; Recorder: Blanca Bazzi; Confirmation: Confirmed ; Classification: Medical ; Code: [id number] ; Contributor System: [employer] ; Last Updated: 07/01/2021 12:43 EDT ; Life Cycle Date: 07/01/2021 ; Life Cycle Status: Active ; Vocabulary: SNOMED CT Arthritis (SNOMED CT :9810941 ) Name of Problem: Arthritis ; Recorder: Blanca Bazzi; Confirmation: Confirmed ; Classification: Medical ; Code: 7705281 ; Contributor System: [employer]Chart ; Last Updated: 07/01/2021 12:43 EDT ; Life Cycle Date: 07/01/2021 ; Life Cycle Status: Active ; Vocabulary: SNOMED CT Choledocholithiasis (SNOMED CT :473298102 ) Name of Problem: Choledocholithiasis ; Recorder: PUJA HOLBROOK MD; Confirmation: Confirmed ; Classification: Medical ; Code: 285169170 ; Contributor System: [employer]Chart ; Last Updated: 07/01/2021 13:27 EDT ; Life Cycle Date: 07/01/2021 ; Life Cycle Status: Active ; Responsible Provider: PUJA HOLBROOK MD; Vocabulary: SNOMED CT Diabetes (SNOMED CT :330090554 ) Name of Problem: Diabetes ; Recorder: Blanca Bazzi; Confirmation: Confirmed ; Classification: Medical ; Code: [id number] ; Contributor System: [employer]Chart ; Last Updated: 07/01/2021 12:43 EDT ; Life Cycle Date: 07/01/2021 ; Life Cycle Status: Active ; Vocabulary: SNOMED CT Gallbladder disease (SNOMED CT :349054498 ) Name of Problem: Gallbladder disease ; Recorder: Blanca Bazzi; Confirmation: Confirmed ; Classification: Medical ; Code: 733600493 ; Contributor System: [employer] ; Last Updated: 07/01/2021 12:44 EDT ; Life Cycle Date: 07/01/2021 ; Life Cycle Status: Active ; Vocabulary: SNOMED CT GERD (gastroesophageal reflux disease) (SNOMED CT :583389387 ) Name of Problem: GERD (gastroesophageal reflux disease) ; Recorder: Blanca Bazzi; Confirmation: Confirmed ; Classification: Medical ; Code: 332332756 ; Contributor System: [employer] ; Last Updated: 07/01/2021 12:44 EDT ; Life Cycle Date: 07/01/2021 ; Life Cycle Status: Active ; Vocabulary: SNOMED CT Hypertension (SNOMED CT :6302559437 ) Name of Problem: Hypertension ; Recorder: Blanca Bazzi; Confirmation: Confirmed ; Classification: Medical ; Code: 3427309605 ; Contributor System: [employer] ; Last Updated: 07/01/2021 12:44 EDT ; Life Cycle Date: 07/01/2021 ; Life Cycle Status: Active ; Vocabulary: SNOMED CT Irregular heart rhythm (SNOMED CT :371946286 ) Name of Problem: Irregular heart rhythm ; Recorder: Blanca Bazzi; Confirmation: Confirmed ; Classification: Medical (more content not included)... [facility] [place] Provider Letter - Ambulatory on 10-26-2022 Provider Letter - Ambulatory AUGUSTINE METZ, [address] [facility] [place] [address] RE: TITO GONCALVES 10/26/2022 Dear AUGUSTINE METZ This document is confidential and intended solely for the use of the individual or entity to which they are addressed. If you are not the named addressee, please disregard and do not disseminate, distribute or copy this information. If you are not the intended recipient you are notified that any disclosure of this information and its contents are strictly prohibited. If you have any questions about this document, please contact our office at . Sincerely, Dr. Angelo The following document(s) were included in the letter: October 26, 2022 16:13:42 EST - (10/26/2022) *.AMB Office Visit Note [facility] [place] Phone Msgon 10-22-2022 Phone Msg - From: Lise Lawrence MA To: Maia GAVIN, Caren; YUSEF UMANZOR, PUJA; Sent: 10/22/2022 09:40:42 EST Subject: symptoms/appointment Caller Name: TITO GONCALVES; Caller Number: H Tito Berg daughter, Amna Sousa [phone] called. She is asking if he can be seen due to a flare up he is having. He is experiencing right side abdominal pain, nausea, and vomiting. She said he states that this is the same feeling as he has had before and they would like to know if he can be scheduled for another ERCP, or if there is an office appointment he can have? His other dilemma is he is leaving for [place] on 11/13 for 6 weeks. From: Caren Carvalho RN To: Howard GONZALEZ Lise Lyon; Sent: 10/22/2022 09:47:07 EST Subject: RE: symptoms/appointment Caller Name: TITO GONCALVES; Caller Number: H We will need to see him in the office first. You can offer this tuesday the at 3:20pm. He can also call his main GI doctor Dr. Kahn to see if they can order any testing or see him sooner Patient will come in on the . Dr. Kahn office cannot see him until December. He has moved to [facility] and Tito would be considered a new patient. His daughter did not feel he was acutely ill and that he can wait for the appointment next Tuesday. [facility] [place] GLYCOHEMOGLOBIN A1Con 2022 ADA RECOMMENDATION SEE BELOW Normal [facility] Comment on above: Result Comment: ADA RECOMMENDED LIMIT 4.0 - 6.0 ADA THERAPEUTIC TARGET < 7.0 ACTION SUGGESTED > 7.0 Performed By: #### A 1C ####[facility] [address] [place] [id number] Menjivar Glucose [Mass/Vol] 163 mg/dL Normal [facility] Comment on above: Performed By: #### A 1C ####[facility] [address] [place], [place] [address]HjMago Menjivar HbA1c (Bld) [Mass fraction] 7.3 % Critically high 4.5-6.2 [facility] Comment on above: Performed By: #### A 1C ####[facility] [address] [place], [place] [address]Db. Arjun Menjivar Dermatopathologyon Dermatopathology Name: TITO GONCALVES Pathologist: KRISTEN OCONNOR MD Date of Procedure: 09/07/2022 Date Received: 09/07/2022 Date Reported 09/08/2022 Submitting Physician: MACARIO BUI MD, Location: [facility] Copy To/Referring/Attending: MD SABRA SIMS FINAL DIAGNOSIS 3 SLIDES, [facility] #[id number] (BX: 08/03/2022) A. 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 B. 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 Note: Microscopic examination reveals a specimen that extends into the superficial dermis. There is dense solar elastosis and there is an asymmetric proliferation of nested and single melanocytes along the dermal-epidermal junction. The melanocytes have mildly enlarged nuclei with mild to moderate cytoplasm. Electronically Signed Out by KRISTEN OCONNOR M.D. CANCER SUMMARY REPORT A. 3 SLIDES, [facility] #[id number] (BX: 08/03/2022): SPECIMEN Procedure: Biopsy, shave Specimen Laterality: Right TUMOR Tumor Site: Skin of other and unspecified parts of face: Right advent Histologic Type: Melanoma in situ, lentigo maligna type Ulceration: Not identified Tumor Regression: Not identified MARGINS Margin Status for Melanoma in Situ: Melanoma in situ present at margin Margin(s) Involved by Melanoma in Situ: Peripheral: Not possible Deep: At the periphery PATHOLOGIC STAGE CLASSIFICATION (pTNM, AJCC 8th Edition) Reporting of pT categories is based on information available to the pathologist at the time the report is issued. As per the AJCC (Chapter 1, 8th Ed.) it is the managing physician?s responsibility to establish the final pathologic stage based upon all pertinent information, including but potentially not limited to this pathology report. pT Category: pTis ADDITIONAL FINDINGS Additional Findings: None ADDITIONAL TESTING Grout Machine Operator Blocks: Normal Block: None Tumor Block: A1 Electronically Signed Out By KRISTEN OCONNOR MD/[facility] Diagnostic interpretation performed at [facility] [id number], [facility] [address] Microscopic Description: A. Microscopic examination reveals nests of basaloid cells with peripheral palisading, with connection to the epidermis. There is mild mucinous stroma and clefting artifact. The lesion has predominantly large nodules of cells, with areas of small islands dissecting the collagen. There is moderate solar elastosis. Clinical History: A: SHAVE/ 1.0X0.6CM BCC VS OTHER B: 0.7X0.7CM MELANOMA VS OTHER Specimens Submitted As: A: 3 SLIDES, [facility] #[id number] (BX: 08/03/2022) Gross Description: Received for consultation from [facility] are three slides labeled [id number] (BX: 08/03/2022) along with the corresponding pathology report. Slide/Block Description 3 SLIDES, [id number]. Keep Slides: N Slides Returned: N Personal Consult: N Normal [facility] Comment on above: Performed By: #### D #### Dermatopathology GLYCOHEMOGLOBIN A1Con 2021 ADA RECOMMENDATION SEE BELOW Normal [facility] Comment on above: Result Comment: ADA RECOMMENDED LIMIT 4.0 - 6.0 ADA THERAPEUTIC TARGET < 7.0 ACTION SUGGESTED > 7.0 Performed By: #### A 1C ####[facility] [address] [place] [address]Dr. Arjun Menjivar Glucose [Mass/Vol] 151 mg/dL Normal [facility] Comment on above: Performed By: #### A 1C ####[facility] [address] [place], [place] [address]Dr. Arjun Menjivar HbA1c (Bld) [Mass fraction] 6.9 % Critically high 4.5-6.2 [facility] Comment on above: Performed By: #### A 1C ####[facility] [address] [place], [place] [address]Dr. Arjun Menjivar XR ESOPHAGUSon 06-28-2022 XR ESOPHAGUS EXAMINATION: XR ESOP HAGUS HISTORY: Dysphagia COMPARISON: No relevant comparison available. TECHNIQUE: A swallowing evaluation was performed with fluoroscopy in the usual manner. Standard level fluoroscopic mode of operation utilized. FINDINGS: ORAL PHASE: Normal deglutition. PHARYNGEAL PHASE: Normal swallowing. ASPIRATION: None. STRUCTURE: There is smooth tapering of the distal esophagus at the gastroesophageal junction with no fluoroscopic evidence of an intrinsic or extrinsic mass. There is moderate diffuse distention of the esophagus. There are tertiary nonpropulsive contractions OTHER: Negative. IMPRESSION: Moderate grade stenosis at the gastroesophageal junction of unknown etiology Electronically authenticated by: CARMEN PABLO Date: 2022-06-28 14:07 Normal [facility] XR MODIFIED BARIUM SWALLOWon 06-15-2022 XR MODIFIED BARIUM SWALLOW EXAMINATION: XR MODIFIED BARIUM SWALLOW HISTORY: Foreign body in larynx ; complains of food sticking, and vomiting/regurgitating food COMPARISON: No relevant comparison available. TECHNIQUE: A swallowing evaluation was performed with fluoroscopy in the usual manner. Standard level fluoroscopic mode of operation utilized. FINDINGS: ORAL PHASE: Normal deglutition. PHARYNGEAL PHASE: Slight, early spillage of liquids over base of tongue resulting in mild penetration of thin and thickened liquid, but adequate clearing. ASPIRATION: None. STRUCTURE: Normal. No visible obstruction, stricture, or dilatation. OTHER: Solids and liquid accumulate within the esophagus, likely due to decreased peristalsis and tertiary waves. IMPRESSION: 1. Early spillage of liquids over base of tongue resulting in mild penetration, but no aspiration. 2. Accumulation of solids and liquid within the esophagus which appears to be due to decreased peristalsis. A fluoroscopic esophagram is recommended for further evaluation. 3. Please see speech pathologist's report for additional findings and recommendations. Electronically authenticated by: SANTOS DC Date: 2022-06-15 11:11 Normal [facility] Ambulatory Visit Summaryon 0 05-03-2022 Ambulatory Visit Summary TITO GONCALVES :1945 Visit Date:05/03/2022 Ambulatory Visit Instructions Your Diagnosis Kidney stone BPH with urinary obstruction Glucosuria Proteinuria Other obstructive and reflux uropathy Your Care Team Attending Physician - Mc ALMONTE MD Primary Care Physician - AUGUSTINE METZ DO This Is Your Medications List Contact prescribing physician if questions or concerns acetaminophen (Tylenol Extra Strength 500 mg oral tablet) amlodipine (amLODIPine 10 mg Tab) aspirin atorvastatin (Lipitor 10 mg Tab) benazepril (benazepril 20 mg Tab) carvedilol (carvedilol 6.25 mg Tab) celecoxib (CeleBREX 200 mg Cap) clonazepam (clonazepam 1 mg Tab) glimepiride (glimepiride 1 mg Tab) multivitamin (Multi Vitamin+) omeprazole (omeprazole 20 mg Cap-DR) propafenone (propafenone 150 mg Tab) trazodone (traZODONE 50 mg Tab) warfarin (warfarin 5 mg Tab) warfarin (warfarin 7.5 mg Tab) Procedures Performed Lithotripsy of kidney (01/10/2020), Cystoscopic removal of ureteric stent (10/23/2019), ERCP (2019), Cholecystectomy, Colonoscopy, Total knee replacement. Discharge Vitals Heart Rate (Peripheral) 70 Respiratory Rate 16 Blood Pressure 120/67 Height 182.0 cm Height 182 cm Weight 118.7 kg Weight 118.7 kg BMI 35.84 What to do next You Need to Schedule the Following Appointments Follow Up with GAGE UMANZOR, VINICIUS Maria When: Comments: PRN Where: [facility] [address], [place] [address] [phone] Medications What How Much When Instructions Unchanged acetaminophen (Tylenol Extra Strength 500 mg oral tablet) By Mouth Every 6 hours taking 2 every 8 hours Contact prescribing physician if questions or concerns Unchanged amlodipine (amLODIPine 10 mg Tab) See instructions tab(s) mg Oral Daily Contact prescribing physician if questions or concerns Unchanged aspirin Contact prescribing physician if questions or concerns Unchanged atorvastatin (Lipitor 10 mg Tab) By Mouth Every day Contact prescribing physician if questions or concerns Unchanged benazepril (benazepril 20 mg Tab) By Mouth Every day Contact prescribing physician if questions or concerns Unchanged carvedilol (carvedilol 6.25 mg Tab) By Mouth 2 times a day Contact prescribing physician if questions or concerns Unchanged celecoxib (CeleBREX 200 mg Cap) By Mouth 2 times a day Contact prescribing physician if questions or concerns Unchanged clonazepam (clonazepam 1 mg Tab) By Mouth 3 times a day Contact prescribing physician if questions or concerns Unchanged glimepiride (glimepiride 1 mg Tab) By Mouth Every day Contact prescribing physician if questions or concerns Unchanged multivitamin (Multi Vitamin+) Contact prescribing physician if questions or concerns Unchanged omeprazole (omeprazole 20 mg Cap-) 1 Capsules By Mouth Every day Contact prescribing physician if questions or concerns Unchanged propafenone (propafenone 150 mg Tab) By Mouth Every 8 hours Contact prescribing physician if questions or concerns Unchanged trazodone (traZODONE 50 mg Tab) By Mouth 3 times a day Contact prescribing physician if questions or concerns Unchanged warfarin (warfarin 5 mg Tab) 1 Tablets By Mouth Every day Contact prescribing physician if questions or concerns Unchanged warfarin (warfarin 7.5 mg Tab) By Mouth Every day Contact prescribing physician if questions or concerns Allergies iodine (Unknown) penicillin (Unknown) sulfa drugs (Unknown) Problems Ongoing - Any problem that you are currently receiving treatment for. Anticoagulated Arthritis Atrial fibrillation BPH with urinary obstruction Diabetes type 2 FH: skin cancer Gall stones Glaucoma Glucosuria High cholesterol Hypertension Kidney stone Proteinuria Ureteral stone Education Materials Benign Prostatic Hyperplasia Benign prostatic hyperplasia (BPH) is an enlarged prostate gland that is caused by the normal aging process and not by cancer. The prostate is a walnut-sized gland that is involved in the production of semen. It is located in front of the rectum and below the bladder. The bladder stores urine and the urethra is the tube that carries the urine out of the body. The prostate may get bigger as a man gets older. An enlarged prostate can press on the urethra. This can make it harder to pass urine. The build-up of urine in the bladder can cause infection. Back pressure and infection may progress to bladder damage and kidney (renal) failure. What are the causes? This condition is part of a normal aging process. However, not all men develop problems from this condition. If the prostate enlarges away from the urethra, urine flow will not be blocked. If it enlarges toward the urethra and compresses it, there will be problems passing urine. What increases the risk? This condition is more likely to develop in men over the age of 50 years. What are the si (more content not included)... Normal [facility] Patient Educationon 05-03-20 Patient Education Urology Benign Prostatic Hyperplasia Benign prostatic hyperplasia (BPH) is an enlarged prostate gland that is caused by the normal aging process and not by cancer. The prostate is a walnut-sized gland that is involved in the production of semen. It is located in front of the rectum and below the bladder. The bladder stores urine and the urethra is the tube that carries the urine out of the body. The prostate may get bigger as a man gets older. An enlarged prostate can press on the urethra. This can make it harder to pass urine. The build-up of urine in the bladder can cause infection. Back pressure and infection may progress to bladder damage and kidney (renal) failure. What are the causes? This condition is part of a normal aging process. However, not all men develop problems from this condition. If the prostate enlarges away from the urethra, urine flow will not be blocked. If it enlarges toward the urethra and compresses it, there will be problems passing urine. What increases the risk? This condition is more likely to develop in men over the age of 50 years. What are the signs or symptoms? Symptoms of this condition include: ? Getting up often during the night to urinate. ? Needing to urinate frequently during the day. ? Difficulty starting urine flow. ? Decrease in size and strength of your urine stream. ? Leaking (dribbling) after urinating. ? Inability to pass urine. This needs immediate treatment. ? Inability to completely empty your bladder. ? Pain when you pass urine. This is more common if there is also an infection. ? Urinary tract infection (UTI). How is this diagnosed? This condition is diagnosed based on your medical history, a physical exam, and your symptoms. Tests will also be done, such as: ? A post-void bladder scan. This measures any amount of urine that may remain in your bladder after you finish urinating. ? A digital rectal exam. In a rectal exam, your health care provider checks your prostate by putting a lubricated, gloved finger into your rectum to feel the back of your prostate gland. This exam detects the size of your gland and any abnormal lumps or growths. ? An exam of your urine (urinalysis). ? A prostate specific antigen (PSA) screening. This is a blood test used to screen for prostate cancer. ? An ultrasound. This test uses sound waves to electronically produce a picture of your prostate gland. Your health care provider may refer you to a specialist in kidney and prostate diseases (urologist). How is this treated? Once symptoms begin, your health care provider will monitor your condition (active surveillance or watchful waiting). Treatment for this condition will depend on the severity of your condition. Treatment may include: ? Observation and yearly exams. This may be the only treatment needed if your condition and symptoms are mild. ? Medicines to relieve your symptoms, including: ? Medicines to shrink the prostate. ? Medicines to relax the muscle of the prostate. ? Surgery in severe cases. Surgery may include: ? Prostatectomy. In this procedure, the prostate tissue is removed completely through an open incision or with a laparoscope or robotics. ? Transurethral resection of the prostate (TURP). In this procedure, a tool is inserted through the opening at the tip of the penis (urethra). It is used to cut away tissue of the inner core of the prostate. The pieces are removed through the same opening of the penis. This removes the blockage. ? Transurethral incision (TUIP). In this procedure, small cuts are made in the prostate. This lessens the prostate's pressure on the urethra. ? Transurethral microwave thermotherapy (TUMT). This procedure uses microwaves to create heat. The heat destroys and removes a small amount of prostate tissue. ? Transurethral needle ablation (TUNA). This procedure uses radio frequencies to destroy and remove a small amount of prostate tissue. ? Interstitial laser coagulation (ILC). This procedure uses a laser to destroy and remove a small amount of prostate tissue. ? Transurethral electrovaporization (TUVP). This procedure uses electrodes to destroy and remove a small amount of prostate tissue. ? Prostatic urethral lift. This procedure inserts an implant to push the lobes of the prostate away from the urethra. Follow these instructions at home: ? Take [id number] and prescription medicines only as told by your health care provider. ? Monitor your symptoms for any changes. Contact your health care provider with any changes. ? Avoid drinking large amounts of liquid before going to bed or out in public. ? Avoid or reduce how much caffeine or alcohol you drink. ? Give yourself time when you urinate. ? Keep all follow-up visits as told by your health care provider. This is important. Contact a health care provider if: ? You have unexplained back pain. ? Your symptoms do not get better with treatment. ? You d (more content not included)... Normal [facility] Urology Office/Clinic Noteon 05-03-2022 Urology Office/Clinic Note Chief Complaint 1 year with KUB HPI Staff Tito is here today for a 1 year follow up with a KUB. KUB done on 04/26/22 at [facility] impression showed no appreciable urinary tract calculi. Previous DX: Kidney stone, BPH with urinary obstruction, glucosuria, proteinuria. S.P Lithotripsy of kidney done on 01/10/20. Pt could not give a UA sample today. Dysuria: _Denies Incomplete bladder emptying: _Denies Hematuria: _Denies Frequency: _Denies Urgency: _Denies Nocturia: _Denies Stream: _average stream Leaking: _Denies Post void dripping: _Denies Wearing pads/ Depends: _Denies Urge incontinence: _Denies Stress incontinence: _Denies Incontinence without Sensory Awareness: _Denies Abdominal pain: _Denies Flank pain: _Denies Sexual complaints: _ History of Present Illness Tests reviewed: reviewed UA I have reviewed the previous health record information and history for this patient from Dr. Almonte. I have reviewed and verified the staff HPI to be accurate for this encounter. There have been no associated fever, chills, flank pain, or blood in the urine. Denies any urinary infections since last encounter. Review of Systems PHQ Score Initial Depression Screen Score: 0 ROS - Provider Constitutional: denies weight loss, denies hot flashes. Eyes: denies eye problems. Gastrointestinal: denies nausea, denies vomiting. Cardiovascular: denies chest pain or angina. Integumentary: no dryness Musculoskeletal: denies musculoskeletal symptoms. ENMT: denies otolaryngeal symptoms. Respiratory: no shortness of breath. Heme/Lymph: denies easy bleeding tendency, denies easy bruising tendency. Psychiatric: no confusion, no anxiety. Genitourinary: denies dysuria, denies hematuria, denies discharge, denies urinary frequency, denies urinary hesitancy, denies nocturia, denies incontinence, denies genital sores, denies decreased libido, and denies erectile dysfunction. Physical Exam Vitals & Measurements HR: 70(Peripheral) RR: 16 BP: 120/67 HT: 182.0 cm HT: 182 cm WT: 118.7 kg WT: 118.7 kg BMI: 35.84 General Appearance: alert, no distress, well nourished, well developed male. Genitourinary: normal scrotum, normal testes, normal urethra, normal epididymis, normal vas deferens/spermatic cord. Flank Pain: none. Bladder: nonpalpable. Assessment/Plan 1. Kidney stone (N20.0: Calculus of kidney) Chronic. KUB done on 04/26/22 shows no appreciable urinary tract calculi. Pt not currently taking any medications at this time. Pt drinks sugar free 7up, about 50oz a day. I advised pt to continue this as it helps with stone prevention. Recommended pt to double fluid intake each day. All questions/concerns were discussed. Pt to call the office if he encounters any issues prior. Pt acknowledges understanding. 2. BPH with urinary obstruction (N40.1: Benign prostatic hyperplasia with lower urinary tract symptoms) Pt not currently taking any BPH medication. Pt continues PSA and SIVA checks w/ Dr. Metz. 3. Glucosuria (R81: Glycosuria) No UA given today. 4. Proteinuria (R80.9: Proteinuria, unspecified) No UA given today. Other obstructive and reflux uropathy (N13.8: Other obstructive and reflux uropathy) Follow-up With When Contact Information GAGE UMANZOR, Mc Blackman, [facility] [address], [place] [address]- [phone] Additional Instructions: PRN Patient Education Benign Prostatic Hyperplasia I, Jerri Lyles, personally scribed for Dr. Almonte on 05/03/2022 09:24:40. . Documentation recorded by the scribe, Jerri Lyles, accurately reflects the services(s) I performed and decisions made by me. Authenticated by Dr. Almonte on 05/03/2022 09:26:33. Problem List/Past Medical History Ongoing Anticoagulated Arthritis Atrial fibrillation BPH with urinary obstruction Diabetes type 2 FH: skin cancer Gall stones Glaucoma Glucosuria High cholesterol Hypertension Kidney stone Proteinuria Ureteral stone Historical No qualifying data Procedure/Surgical History Lithotripsy of kidney (01/10/2020), Cystoscopic removal of ureteric stent (10/23/2019), ERCP (2019), Cholecystectomy, Colonoscopy, Total knee replacement. Medications amLODIPine 10 mg Tab, See Instructions aspirin benazepril 20 mg Tab, Oral, Daily carvedilol 6.25 mg Tab, Oral, BID CeleBREX 200 mg Cap, Oral, BID, Not taking clonazepam 1 mg Tab, Oral, TID glimepiride 1 mg Tab, Oral, Daily Lipitor 10 mg Tab, Oral, Daily Multi Vitamin+ omeprazole 20 mg Cap-DR, 20 mg= 1 cap(s), Oral, Daily propafenone 150 mg Tab, Oral, q8hr traZODONE 50 mg Tab, Oral, TID Tylenol Extra Strength 500 mg oral tablet, Oral, q6hr warfarin 5 mg Tab, 5 mg= 1 tab(s), Oral, Daily warfarin 7.5 mg Tab, Oral, Daily Allergies iodine (Unknown) penicillin (Unknown) sulfa drugs (Unknown) Social History Alcohol - Denies Alcohol Use, 09/24/2019 Tobacco Never (less than 100 in lifetim (more content not included)... Normal [facility] Comment on above: Result Comment: Elec tronically Signed By: Mc ALMONTE MD\.br\Date and Time Signed: 05/03/22 09:26 EDT\.br\Electronically Co-Signed By: Jerri Lyles\.br\Date and Time Co-Signed: 05/03/22 09:24 EDT RAD - MISCon 04-28-2022 RAD - MISC [id number] Normal [facility] XR KUB 1 VIEWon 04-27-2022 XR KUB 1 VIEW EXAMINATION: XR KUB 1 VIEW HISTORY: Kidney stone COMPARISON: XR KUB 04/22/2021 FINDINGS: KIDNEY/URETER - RIGHT: No visible renal or ureteral calcifications. KIDNEY/URETER - LEFT: No visible renal or ureteral calcifications. PELVIS: Stable small calcification within lower right pelvis favoring a phlebolith or bone island. BOWEL: No abnormal dilation or deviation. BONES: No acute abnormality. Degenerative changes of the spine and hip joints. OTHER: Negative. No abnormal gaseous collections. IMPRESSION: 1. No appreciable urinary tract calculi. Electronically authenticated by: SANTOS DC Date: 2022-04-27 06:18 Normal [facility] GLYCOHEMOGLOBIN A1Con 2021 ADA RECOMMENDATION SEE BELOW Normal [facility] Comment on above: Result Comment: ADA RECOMMENDED LIMIT 4.0 - 6.0 ADA THERAPEUTIC TARGET < 7.0 ACTION SUGGESTED > 7.0 Performed By: #### A 1C #### [facility] [address] [address] [address] Arjun Menjivar Glucose [Mass/Vol] 126 mg/dL Normal [facility] Comment on above: Performed By: #### A 1C #### [facility] [address] [place], [place] [address] Dr. Arjun Menjivar HbA1c (Bld) [Mass fraction] 6.0 % Normal 4.5-6.2 [facility] Comment on above: Performed By: #### A 1C #### [facility] [address] [address] [address] Arjun Menjivar IRON AND TIBCon 04-07-2022 % SATURATION 25.4 % Normal [facility] Comment on above: Performed By: #### F ETIBC, B12FOL #### [facility] [address] [address] [address] Arjun Menjivar Iron [Mass/Vol] 62.0 ug/dL Critically low 65.0-175.0 [facility] Comment on above: Performed By: #### F ETIBC, B12FOL #### [facility] [address] [address] [address] Arjun Menjivar TIBC DIRECT 244.0 ug/dL Critically low 250.0-450.0 [facility] Comment on above: Performed By: #### F ETIBC, B12FOL #### [facility] [address] [address] [address] Arjun Menjivar VIT B12 AND FOLATEon 022 Cobalamin (Vitamin B12) [Mass/Vol] 597.0 pg/mL Normal 193.0-986.0 [facility] Comment on above: Performed By: #### F ETIBC, B12FOL #### [facility] [address] [place] [address] Dr. Arjun Menjivar FOLATE 21.50 ng/mL Normal 8.60-58.90 [facility] Comment on above: Performed By: #### F ETIBC, B12FOL #### [facility] [address] [place] [address] Dr. Arjun Menjivar CBCon 03-16-2022 ABSOLUTE BAS 0.0 10*3/uL Normal 0.0-0.2 [facility] Comment on above: Result Comment: Test ing performed at [place] [address] Performed By: #### R ENF, ACBC, PT #### [place] [address] ABSOLUTE EOS 0.00 10*3/uL Normal 0.0-0.7 [facility] Comment on above: Performed By: #### R ENF ACBC, PT #### [place] [address] ABSOLUTE NEUTROPHIL COUNT 8.5 10*3/uL High 1.4-6.5 [facility] Comment on above: Performed By: #### R ENF ACBC, PT #### [place] [address] Basophils/100 WBC (Bld) 0.1 % Normal 0.0-2.0 [facility] Comment on above: Performed By: #### R ENF ACBC, PT #### [place] [address] DTYPE AUTO DIFF Normal [facility] Comment on above: Performed By: #### R ENF ACBC, PT #### [place] [address] Eosinophils/100 WBC (Bld) 0.0 % Normal 0.0-11.0 [facility] Comment on above: Performed By: #### R ENF ACBC, PT #### [place] [address] Lymphocytes (Bld) [#/Vol] 0.60 10*3/uL Low 1.2-3.4 [facility] Comment on above: Performed By: #### R ENF ACBC, PT #### [place] [address] Lymphocytes/100 WBC (Bld) 6.4 % Low 20.0-55.0 [facility] Comment on above: Performed By: #### R ENF ACBC, PT #### [place] [address] Monocytes (Bld) [#/Vol] 0.4 10*3/uL Normal 0.0-0.7 [facility] Comment on above: Performed By: #### R ENF, ACBC, PT #### Testing performed at [place] [id number] Monocytes/100 WBC (Bld) 4.1 % Normal 0.0-10.0 [facility] Comment on above: Performed By: #### R HUGH MAGDALENO, PT #### Testing performed at [place] [id number] Neutrophils/100 WBC (Bld) 89.4 % High 37.0-75.0 [facility] Comment on above: Performed By: #### LUMA FARIABC, PT #### Testing performed at [place] [id number] Erythrocyte distribution width (RBC) [Ratio] 17.0 % High 11.5-14.5 [facility] Comment on above: Performed By: #### HUGH FARIA, PT #### [place] [address] Hematocrit (Bld) [Volume fraction] 33.9 % Low 42.0-52.0 [facility] Comment on above: Performed By: #### R LUMA MAGDALENOBC, PT #### [place] [address] Hemoglobin (Bld) [Mass/Vol] 11.7 g/dL Low 14.0-18.0 [facility] Comment on above: Performed By: #### HUGH FARIA, PT #### Testing performed at [place] [id number] MCH (RBC) [Entitic mass] 30.0 pg Normal 26.0-35.0 [facility] Comment on above: Performed By: #### R ENLUMA KnowlesBC, PT #### Testing performed at [place] [id number] MCHC (RBC) [Mass/Vol] 34.5 g/dL Normal 27.0-37.0 [facility] Comment on above: Performed By: #### R ENF ACBC, PT #### Testing performed at [place] [id number] MCV (RBC) [Entitic vol] 87.2 fL Normal 80.0-100.0 [facility] Comment on above: Performed By: #### R HUGH MAGDALENO, PT #### Testing performed at [place] [id number] Platelet mean volume (Bld) [Entitic vol] 9.2 fL Normal 7.4-11.0 [facility] Comment on above: Performed By: #### R HUGH MAGDALENO, PT #### Testing performed at [place] [id number] Platelets (Bld) [#/Vol] 154 10*3/uL Normal 130.0-400.0 [facility] Comment on above: Performed By: #### R HUGH MAGDALENO, PT #### [place] [address] RBC (Bld) [#/Vol] 3.89 10*6/uL Low 4.0-6.1 [facility] Comment on above: Performed By: #### R HUGH MAGDALENO, PT #### Testing performed at [place] [id number] WBC (Bld) [#/Vol] 9.5 10*3/uL Normal 3.6-11.0 [facility] Comment on above: Performed By: #### HUGH FARIA, PT #### Testing performed at [place] [id number] CBC, EDIF, PLATELETon 2021 ABSOLUTE BASOPHIL COUNT 0.0 10*3/uL 0.0 - 0.2 10*3/uL [facility] Comment on above: Testing performed at [place] [id number] Basophils/100 WBC (Bld) 0.1 % 0.0 - 2.0 % [facility] Differential cell count method Nom (Bld) AUTO DIFF % [facility] Eosinophils (Bld) [#/Vol] 0.00 10*3/uL 0.0 - 0.7 10*3/uL [facility] Eosinophils/100 WBC (Bld) 0.0 % 0.0 - 11.0 % [facility] Erythrocyte distribution width (RBC) [Ratio] 17.0 % High 11.5 - 14.5 % [facility] Hematocrit (Bld) [Volume fraction] 33.9 % Low 42.0 - 52.0 % [facility] Hemoglobin (Bld) [Mass/Vol] 11.7 g/dL Low [facility] Interpretation and review of laboratory results Abnormal [facility] Lymphocytes (Bld) [#/Vol] 0.60 10*3/uL Low 1.2 - 3.4 10*3/uL [facility] Lymphocytes/100 WBC (Bld) 6.4 % Low 20.0 - 55.0 % [facility] MCH (RBC) [Entitic mass] 30.0 pg 26.0 - 35.0 PG [facility] MCHC (RBC) [Mass/Vol] 34.5 g/dL [facility] MCV (RBC) [Entitic vol] 87.2 fL [facility] Monocytes (Bld) [#/Vol] 0.4 10*3/uL 0.0 - 0.7 10*3/uL [facility] Monocytes/100 WBC (Bld) 4.1 % 0.0 - 10.0 % [facility] Neutrophils (Bld) [#/Vol] 8.5 10*3/uL High 1.4 - 6.5 10*3/uL [facility] Neutrophils/100 WBC (Bld) 89.4 % High 37.0 - 75.0 % [facility] Platelet mean volume (Bld) [Entitic vol] 9.2 fL [facility] Platelets (Bld) [#/Vol] 154 10*3/uL 130.0 - 400.0 10*3/uL [facility] RBC (Bld) [#/Vol] 3.89 10*6/uL Low 4.0 - 6.1 10*6/uL [facility] WBC (Bld) [#/Vol] 9.5 10*3/uL 3.6 - 11.0 10*3/uL [facility] PROTIMEon 03-16-2022 INR Coag (PPP) [Relative time] 1.37 {INR} High 0.85-1.10 [facility] Comment on above: Result Comment: 2.0-3.0 THERAPEUTIC RANGE 2.5-3.5 MECHANICAL VALVE RANGE Testing performed at [place] [address] Performed By: #### R HUGH MAGDALENO, PT #### Testing performed at [facility] [address] [place] [address] PT Coag (PPP) [Time] 16.9 s High 11.8-14.4 [facility] Comment on above: Performed By: #### R TIMBOF ACBC, PT #### Testing performed at [facility] [address] [place] [address] PROTIME-INRon 03-16-2022 INR Coag (PPP) [Relative time] 1.37 {INR} High [facility] Comment on above: 2.0-3.0 THERAPEUTIC RANGE 2.5-3.5 MECHANICAL VALVE RANGE Testing performed at [place] [address] Interpretation and review of laboratory results Abnormal [facility] PT Coag (PPP) [Time] 16.9 s High [facility] RENAL FUNCTION PANELon 03-16 Albumin [Mass/Vol] 3.3 G/dl Low 3.5 - 5.0 G/dl [facility] Calcium [Mass/Vol] 7.9 mg/dL Low [facility] Chloride [Moles/Vol] 106 mmol/L [facility] Comment on above: Please note: Triglyc eride levels of 600mg/dL or higher may positively bias chloride results by approximately 2.1 mmol CO2 [Moles/Vol] 23 mmol/L [facility] Creatinine [Mass/Vol] 1.20 mg/dL [facility] GFR COMMENT Average GFR for 70+ years old = 75. [facility] Comment on above: Chronic Kidney disea se, GFR = <60. Kidney failure, GFR = <15. The GFR estimate is not adjusted for extreme body surface area or acute process, nor has it been validated for women or ethnic groups other than and . Testing performed at [place] [address] GFR/1.73 sq M.predicted among blacks MDRD (S/P/Bld) [Vol rate/Area] 76 mL/min/{1.73_m2} ml/min/1.73 sq.m [facility] GFR/1.73 sq M.predicted among non-blacks MDRD (S/P/Bld) [Vol rate/Area] 63 mL/min/{1.73_m2} ml/min/1.73 sq.m [facility] Glucose post fast [Mass/Vol] 230 mg/dL High [facility] Comment on above: NORMAL <100 mg/dL PREDIABETES 101-126 mg/dL DIABETES 126 mg/dL or higher Interpretation and review of laboratory results Abnormal [facility] Phosphate [Mass/Vol] 2.9 mg/dL [facility] Potassium [Moles/Vol] 4.5 mmol/L [facility] Sodium [Moles/Vol] 136 mmol/L Low [facility] Urea nitrogen [Mass/Vol] 22 mg/dL High [facility] RENAL PANEL,FASTINGon 2021 ALBUMIN 3.3 G/dl Low 3.5-5.0 [facility] Comment on above: Performed By: #### R HUGH MAGDALENO, PT #### Testing performed at [place] [id number] Calcium [Mass/Vol] 7.9 mg/dL Low 8.4-10.2 [facility] Comment on above: Performed By: #### R HUGH MAGDALENO, PT #### Testing performed at [address] [address] Chloride [Moles/Vol] 106 mmol/L Normal 98-107 [facility] Comment on above: Result Comment: Alla noland note: Triglyceride levels of 600mg/dL or higher may positively bias chloride results by approximately 2.1 mmol Performed By: #### R HUGH MAGDALENO, PT #### Testing performed at [address] [address] CO2 [Moles/Vol] 23 mmol/L Normal 22-30 [facility] [place] Comment on above: Performed By: #### R HUGH MAGDALENO, PT #### Testing performed at [address] [address] Creatinine [Mass/Vol] 1.20 mg/dL Normal 0.7-1.2 [facility] Comment on above: Performed By: #### R HUGH MAGDALENO, PT #### [place] [address] EST. GFR, 76 ml/min/1.73sq.m [facility] Comment on above: Performed By: #### HUGH FARIA, PT #### [place] [address] EST. GFR,Non 63 ml/min/1.73sq.m [facility] Comment on above: Performed By: #### HUGH FARIA, PT #### [place] [address] GFR Information Average GFR for 70+ years old = 75. Normal [facility] Comment on above: Result Comment: Proof Sorter david Kidney disease, GFR = <60. Kidney failure, GFR = <15. The GFR estimate is not adjusted for extreme body surface area or acute process, nor has it been validated for women or ethnic groups other than and . Testing performed at [place] [address] Performed By: #### HUGH FARIA, PT #### [place] [address] Glucose [Mass/Vol] 230 mg/dL High 70-100 [facility] Comment on above: Result Comment: NORMAL <100 mg/dL PREDIABETES 101-126 mg/dL DIABETES 126 mg/dL or higher Performed By: #### HUGH FARIA, PT #### [place] [address] PHOSPHOROUS 2.9 MG/DL Normal 2.5-4.5 [facility] Comment on above: Performed By: #### HUGH FARIA, PT #### [place] [address] Potassium [Moles/Vol] 4.5 mmol/L Normal 3.5-5.1 [facility] Comment on above: Performed By: #### HUGH FARIA, PT #### [place] [address] Sodium [Moles/Vol] 136 mmol/L Low 137-145 [facility] Comment on above: Performed By: #### R HUGH MAGDALENO, PT #### [place] [address] Urea nitrogen [Mass/Vol] 22 mg/dL High 04-14 [facility] Comment on above: Performed By: #### R HUGH MAGDALENO, PT #### [place] [address] GLUCOSE (POC DEVICE)on 03-15 GLUCOSE, POINT OF CARE 118 [facility] Interpretation and review of laboratory results Abnormal [facility] Operator [id number] [facility] Comment on above: Testing performed at [address] MRSA SCREENon 03-15-2022 MRSA DNA HERIBERTO+probe Ql (Unsp spec) Not detected Normal NOT DETECTED [facility] Comment on above: Performed By: #### M RSAST #### [place] [address] STAPH AUREUS SCREEN Not detected Normal NOT DETECTED [facility] Comment on above: Result Comment: Test ing performed at [place] [address] Performed By: #### M RSAST #### [place] [address] NOVEL CORONAVIRUSon 03-15-20 22 NARRATIVE This test was perfor med using isothermal HERIBERTO and has been approved as Emergency Use Authorization (EUA) for the qualitative detection [id number] [facility] Comment on above: Result Comment: Test ing performed at [place] [address] Performed By: #### C OVID #### [place] [address] SARS-CoV-2 (COVID-19) RNA HERIBERTO+probe Ql (Unsp spec) Not detected Normal NOT DETECTED [facility] Comment on above: Result Comment: Nega tive results do not preclude SARS-CoV-2 infection and should not be used as the sole basis for treatment or other patient management decisions. Optimum specimen types and timing for peak viral levels during infections caused by SARS-CoV-2 has not been determined. The possibility of a false negative result should especially be considered if the patient's recent exposures or clinical presentation suggest that SARS-CoV-2 infection is probable, and diagnostic tests for other causes of illness (e.g., other respiratory illness) are negative. Collection of a new specimen and re-testing may be necessary if the patient is critically ill or clinically deteriorating. Performed By: #### C OVID #### [place] [address] NOVEL CORONAVIRUS LAB 1 - NA SOPHARYNGEALon 03-15-2022 NARRATIVE -1 This test was perfor med using isothermal HERIBERTO and has been approved as Emergency Use Authorization (EUA) for the qualitative detection [id number] nucleic acid. [facility] Comment on above: Testing performed at [place] [address] SARS-CoV-2 (COVID-19) RNA HERIBERTO+probe Ql (Unsp spec) Not detected NOT DETECTED [facility] Comment on above: Negative results do not preclude SARS-CoV-2 infection and should not be used as the sole basis for treatment or other patient management decisions. Optimum specimen types and timing for peak viral levels during infections caused by SARS-CoV-2 has not been determined. The possibility of a false negative result should especially be considered if the patient's recent exposures or clinical presentation suggest that SARS-CoV-2 infection is probable, and diagnostic tests for other causes of illness (e.g., other respiratory illness) are negative. Collection of a new specimen and re-testing may be necessary if the patient is critically ill or clinically deteriorating. [facility] POCT GLUCOSEon 03-15-2022 Glucose [Mass/Vol] 118 mg/dL High 70-100 [facility] Comment on above: Performed By: #### P OCGLU #### [place] [address] MAINTENANCE CLERK [id number] Normal [facility] Comment on above: Result Comment: Test ing performed at [place] [address] Performed By: #### P OCGLU #### [place] [address] PROTIMEon 03-15-2022 INR Coag (PPP) [Relative time] 1.36 {INR} High 0.85-1.10 [facility] Comment on above: Result Comment: 2.0-3.0 THERAPEUTIC RANGE 2.5-3.5 MECHANICAL VALVE RANGE Testing performed at [place] [address] Performed By: #### P T #### [place] [address] PT Coag (PPP) [Time] 16.8 s High 11.8-14.4 [facility] Comment on above: Performed By: #### P T #### [place] [address] PROTIME-INRon 03-15-2022 INR Coag (PPP) [Relative time] 1.36 {INR} High [facility] Comment on above: 2.0-3.0 THERAPEUTIC RANGE 2.5-3.5 MECHANICAL VALVE RANGE Testing performed at [place] [address] Interpretation and review of laboratory results Abnormal [facility] PT Coag (PPP) [Time] 16.8 s High [facility] PTTon 03-15-2022 aPTT Coag (Bld) [Time] 28.7 s Normal 22.4-34.7 [facility] Comment on above: Result Comment: CARDIAC AND PE/DVT THERAPUTIC RANGE 69-97 SEC VASCULAR/THREATENED LIMB THERAPUTIC RANGE 80-112 SEC Testing performed at [place] [address] Performed By: #### P TT #### [place] [address] aPTT Coag (Bld) [Time] 28.7 s [facility] Comment on above: CARDIAC AND PE/DVT THERAPUTIC RANGE 69-97 SEC VASCULAR/THREATENED LIMB THERAPUTIC RANGE 80-112 SEC Testing performed at [address] SCREEN: MRSA ONLY, NARES (IS OLATION SCREEN)on 03-15-2022 MRSA isol Org specific cx Ql (Nose) Not detected NOT DETECTED [facility] STAPHYOCOCCUS AUREUS BY PCR Not detected NOT DETECTED [facility] Comment on above: Testing performed at [address] TYPE AND SCREEN CROSSMATCH C ONVERTIBLEon 03-15-2022 TYPE AND SCREEN CROSSMATCH CONVERTIBLE WORKUP EXPIRES 03/18/2022,2359 ABO/RH(D) A POSITIVE ANTIBODY SCREEN NEGATIVE ARM BAND NUMBER [id number] Testing performed at [place] [address] [facility] Comment on above: Performed By: #### T SCC #### [place] [address] TYPE AND SCREEN - POSSIBLE T RANSFUSIONon 03-15-2022 ABO and Rh group Nom (Bld ) Positive [facility] ARM [facility] [id number] [facility] Testing performed at [address] Blood group antibody screen Ql Negative [facility] EXPIRATION DATE 03/18/2022,2359 [facility] XR KNEE RIGHT 2 VIEWSon 02-25 XR KNEE RIGHT 2 VIEWS EXAM: XR KNEE RIGHT 2 VIEWS HISTORY: COMPARISON: FINDINGS: Joint replacement is seen with overall preservation of normal alignment. No abnormal lucency is seen around the hardware. IMPRESSION: Joint replacement without hardware complication Normal [facility] XR Knee - right 2 Viewson IMPRESSION: Joint replacement without hardware complication RADIOLOGY EXAM: XR KNEE RIGHT 2 VIEWS HISTORY: COMPARISON: FINDINGS: Joint replacement is seen with overall preservation of normal alignment. No abnormal lucency is seen around the hardware. RADIOLOGY Abel Resendiz MD - 03/15/2022 EXAM: XR KNEE RIGHT 2 VIEWS HISTORY: COMPARISON: FINDINGS: Joint replacement is seen with overall preservation of normal alignment. No abnormal lucency is seen around the hardware. IMPRESSION IMPRESSION: Joint replacement without hardware complication [facility] Radiology Study observation (narrative) [facility] XR Knee - right 2 ViewsOrder ed By: Abel Resendiz on 03-15-2022 [facility] Work Phone: Complete Blood Count Auto Di ffon 11-10-2021 Basophils (Bld) [#/Vol] 0.0 10*3/uL Normal 0.0-0.2 [facility] Comment on above: Result Comment: PERF ORMED BY: [place] [address] PATHOLOGIST TABLE SETTER RICKY STRANGE M.D. Performed By: #### P T, CBC, PTT #### [address] Basophils/100 WBC (Bld) 0.5 % Normal . [facility] Comment on above: Performed By: #### P T, CBC, PTT #### [address] Eosinophils (Bld) [#/Vol] 0.1 10*3/uL Normal 0.0-0.45 [facility] Comment on above: Performed By: #### P T, CBC, PTT #### [address] Eosinophils/100 WBC (Bld) 1.5 % Normal . [facility] Comment on above: Performed By: #### P T, CBC, PTT #### [address] Erythrocyte distribution width (RBC) [Ratio] 15.8 % High 12.0-14.8 [facility] Comment on above: Performed By: #### P T, CBC, PTT #### [facility] [address] [place] [address] Hematocrit (Bld) [Volume fraction] 37.8 % Low 38.8-50.0 [facility] Comment on above: Performed By: #### P T, CBC, PTT #### [address] Hemoglobin (Bld) [Mass/Vol] 12.5 g/dL Low 13.0-17.0 [facility] Comment on above: Performed By: #### P T, CBC, PTT #### [address] [place] [address] [place] Lymphocytes (Bld) [#/Vol] 1.7 10*3/uL Normal 1.00-4.8 [facility] Comment on above: Performed By: #### P T, CBC, PTT #### [place] [address] [place] Lymphocytes/100 WBC (Bld) 33.0 % Normal . [facility] Comment on above: Performed By: #### P T, CBC, PTT #### [address] MCH (RBC) [Entitic mass] 28.5 pg Normal 27.5-35.2 [facility] Comment on above: Performed By: #### P T, CBC, PTT #### [address] MCV (RBC) [Entitic vol] 86.5 fL Normal 83.5-101 [facility] Comment on above: Performed By: #### P T, CBC, PTT #### [address] Mean Corpuscular HGB Conc 33.0 g/dL Normal 32.5-35.6 [facility] Comment on above: Performed By: #### P T, CBC, PTT #### [place] [address] [place] Monocytes (Bld) [#/Vol] 0.4 10*3/uL Normal 0.0-0.8 [facility] Comment on above: Performed By: #### P T, CBC, PTT #### [place] [address] [place] Monocytes/100 WBC (Bld) 8.5 % Normal . [facility] Comment on above: Performed By: #### P T, CBC, PTT #### [place] [address] [place] Neutrophils (Bld) [#/Vol] 2.9 10*3/uL Normal 1.8-7.7 [facility] Comment on above: Performed By: #### P T, CBC, PTT #### [facility] [address] [place] [address] [place] Neutrophils/100 WBC (Bld) 56.5 % Normal . [facility] Comment on above: Performed By: #### P T, CBC, PTT #### [facility] [address] [place] [address] [place] Nucleated RBC/100 WBC (Bld) [Ratio] 0.2 % Normal 0-0.5 [facility] Comment on above: Performed By: #### P T, CBC, PTT #### [facility] [address] Platelet mean volume (Bld) [Entitic vol] 8.7 fL Normal 6.6-10.1 [facility] Comment on above: Performed By: #### P T, CBC, PTT #### [facility] [address] [place] [address] Platelets (Bld) [#/Vol] 200 10*3/uL Normal 150-450 [facility] Comment on above: Performed By: #### P T, CBC, PTT #### [facility] [address] [place] [address] [place] RBC (Bld) [#/Vol] 4.38 10*6/uL Normal 3.90-5.60 [facility] Comment on above: Performed By: #### P T, CBC, PTT #### [facility] [address] [place] [address] [place] WBC (Bld) [#/Vol] 5.1 10*3/uL Normal 4.5-11.0 [facility] Comment on above: Performed By: #### P T, CBC, PTT #### [facility] [address] [place] [address] [place] ERCPon 11-10-2021 [place] ERCP [facility] Main [place] [address] [place] [address] Fluoroscopy Report Signed Patient: Tito Goncalves MR#: [id number] 70 : 1945 Acct:[id number] Age/Sex: 76 / M ADM Date: 11/10/21 Loc: Room: Type: [facility] Attending Dr: Carmen Kahn DO Ordering Provider: Carmen Kahn Jr, DO Date of Service: 11/10/21 FL/FL ERCP: . Copies to: DO ALIN Nichols Jr ERCP 11/10/2021 1:00 PM SIGNS AND SYMPTOMS: Common bile duct stone removal PROTOCOL: Intraoperative fluoroscopic views of the right upper quadrant were obtained. COMPARISON: None FINDINGS: Intraoperative views demonstrate filling defects within the common bile duct. There is evidence of a balloon sweep. Number of images: 13 Fluoroscopic time: 1 minute 5 seconds. FL/FL ERCP IMPRESSION: Intraoperative views demonstrate filling defects within the common bile duct. There is evidence of a balloon sweep. Impression dictated by: Martir Burch M.D.11/10/2021 2:37 PM Dictation Location: [place] [address] Transcribed By: [facility] 11/10/21 1437 Dictated By: Martir Burch II, MD 11/10/21 1428 Signed By: 11/10/21 1437 Normal [facility] Glucose Poct Glucometerson 0 11-10-2021 Commemt1 Glu2: Cleaned Meter Normal [facility] Comment on above: Result Comment: PERF ORMED BY: [facility] [address] [address] PATHOLOGIST TABLE SETTER RICKY STRANGE M.D. Performed By: #### G LULS #### Point of Care testing , Glucose [Mass/Vol] 106 mg/dL Normal [facility] Comment on above: Result Comment: [facility] Glucose Reference Range is dependent on time and content of last meal. Glucose of more than 200 mg/dL in a nonstressed, ambulatory subject supports the diagnosis of Diabetes Mellitus. Performed By: #### G LULS #### Point of Care testing , Partial Thromboplastin Timeo n 11-10-2021 aPTT Coag (Bld) [Time] 29.6 s Normal 25.1-36.5 [facility] Comment on above: Result Comment: PERF ORMED BY: [facility] [address] [place] [id number] PATHOLOGIST TABLE SETTER RICKY STRANGE M.D. Performed By: #### P T, CBC, PTT #### [facility] [address] [place] [id number] [facility] Prothrombin Time INRon 11-10 INR Coag (PPP) [Relative time] 1.3 {INR} Normal [facility] Comment on above: Result Comment: INR Therapeutic Range A) Pre- and Peroperative OAT started two weeks before surgery. NOT HIP SURGERY: 1.5 - 2.5 HIP SURGERY: 2 - 3 B) Primary and secondary prevention of venous THROMBOSIS: 2 - 3 C) Active venous thrombosis, pulmonary embolism and prevention of recurrent venous thrombosis: 2 - 3 D) Prevention of arterial thromboembolism including patients with mechanical heart valves: 3 - 4.5 Performed By: #### P T, CBC, PTT #### [facility] [address] [place] [id number] [facility] PT Coag (PPP) [Time] 14.4 s High 9.0-12.9 [facility] Comment on above: Performed By: #### P T, CBC, PTT #### [facility] [address] [place] [id number] [facility] COVID-19 FRMCon 11-06-2021 SARS-CoV-2 (COVID-19) RNA HERIBERTO+probe Ql (Unsp spec) Negative Normal Negative [facility] Comment on above: Order Comment: Healt hcare Worker?: N Result Comment: Testing for SARS-CoV-2 by RT-PCR This test was developed and its performance characteristics determined by [employer] ([employer]) and validated at the [facility]. This test has not been FDA cleared or approved. This test has been authorized by FDA under an Emergency Use Authorization (EUA). This test has been validated in accordance with the FDA's Guidance Document (Policy for Diagnostics Testing in Laboratories Certified to Perform High Complexity Testing under CLIA prior to Emergency Use Authorization for Coronavirus Disease-2019 during the Public Health Emergency) issued on December 27, 2019. This test is only authorized for the duration of time the declaration that circumstances exist justifying the authorization of the emergency use of in vitro diagnostic tests for detection of SARS-CoV-2 virus and/or diagnosis of COVID-19 infection under section 564(b)(1) of the Act, 21 U.S.C. 360bbb-3(b)(1), unless the authorization is terminated or revoked sooner. PERFORMED BY: [place] [address] PATHOLOGIST TABLE SETTER RICKY STRANGE M.D. Performed By: #### C OVID 19 [facility] #### [address] Operative Reporton 9 Operative Report MR#: [id number] [facility] Pt. Name: Tito Goncalves Room #: CC Discharge Date: Birthdate: 1945 OPERATIVE REPORT DATE OF SURGERY: 06/13/2019 SURGEON: Gene Jones MD PROCEDURE PERFORMED: Transesophageal echocardiogram and cardioversion. INDICATION: Atrial fibrillation. FELLOW: Patric Flores MD PROCEDURE IN DETAIL: An informed consent was obtained from the patient after explaining the indications, risks, and benefits as well as alternatives. The patient understood and agreed, and signed the consent form. The patient was brought to the custodial laborer and a transesophageal echocardiogram was performed under conscious sedation. The patient obtained a total of 6 mg of versed and 100 mcg of fentanyl during the procedure. Transesophageal echocardiogram did not show any thrombus in the left atrial appendage. Full JESSICA report is [employer]. After the transesophageal echocardiogram, a synchronized biphasic cardioversion was done at 300 joules of energy. The patient was successfully converted to sinus rhythm, and a postprocedure EKG was done to confirm. No complications throughout the procedure. Electronically Signed by: Gene Jones MD 06/14/2019 10:36 A Gene Jones MD I was present for the entire procedure. Date Dict: 06/13/2019/12:48 P/Patric Flores MD Date Trans: 06/14/2019 12:23 A/asad [id number] cc: Augustine Metz D.O. [address] [place] [address] St[address] [facility] [id number] Ryan Cardenas M.D. [address] [facility] [address] Normal [facility] Repor emma 06-21-2017 Health Services Clinic Report Type: OrthopedicDictated by: To be signed by: Transcribed by: Transcribed D/ Dictation D/ Report: DATE OF VISIT: 06/08/2017 Re: Tito Goncalves HISTORY OF PRESENT ILLNESS: Patient is here today for followup. He is an established patient of mine. He is status post revision arthroplasty for retinacular disruption, reports that he is doing well. He is pleased with the outcome of the surgery. The knee feels better now than it has in some time. He has no new questions, concerns, or complaints for me. PHYSICAL EXAMINATION: This is an alert, oriented, age appropriate male in no acute distress, pleasant and cooperative; 6 feet, 254 pounds, temperature 97.4 and 0 on a 10-point scale. The lower extremities are evaluated. He has no gross deformity, normal stability, 5/5 motor, intact sensation, normal coordination and reflexes. Skin is intact, no nodules. Motion of the knee is around 0-120 degrees, stable examination. Palpably there is no defect in the retinacular disruption. There is some minimal warmth as expected given the postoperative nature of the knee. IMPRESSION: Status post left knee revision, repair of medial retinacular disruption. PLAN: I reviewed my findings with Tito. I am pleased with the performance and his recovery thus far. I would like to follow up with him in January for repeat clinical and radiographic examination. Call with any questions or concerns in the meantime. Normal [facility] Vital Signs Date Time Vital Sign Value Performing Clinician Facility 03-16-2023 11:19-0400 Body height 182.9 cm Azul LAN Work Phone: [facility] 03-16-2023 11:19-0400 Body mass index (BMI) [Ratio] 33.23 kg/m2 Azul LAN Work Phone: [facility] 03-16-2023 11:19-0400 Body temperature 97.2 [degF] Azul Rachel MANAGER FORENSIC-AIRCRAFT STRUCTURE MECHANIC Work Phone: [employer] 03-16-2023 11:19-0400 Body weight 111.13 kg Azul Rachel MANAGER FORENSIC-AIRCRAFT STRUCTURE MECHANIC Work Phone: [employer] 01-05-2023 12:00-0400 Body height Augustine Ball Other [facility] Other 01-05-2023 12:00-0400 Body mass index (BMI) [Ratio] 33.36 kg/m2 Augustine Ball Other [facility] Other 01-05-2023 12:00-0400 Body weight 110.04 kg Augustine Ball Other [facility] Other 01-05-2023 12:00-0400 Diastolic blood pressure 70 mm[Hg] Augustine Ball Other [facility] Other 01-05-2023 12:00-0400 Respiratory rate 12 /min Augustine Ball Other [facility] Other 01-05-2023 12:00-0400 Systolic blood pressure 118 mm[Hg] Augustine Ball Other [facility] Other 10-04-2022 12:00-0500 Body height Augustine Ball Other [facility] Other 10-04-2022 12:00-0500 Body mass index (BMI) [Ratio] 33.44 kg/m2 Augustine Ball Other [facility] Other 10-04-2022 12:00-0500 Body weight 110.32 kg Augustine Ball Other [facility] Other 10-04-2022 12:00-0500 Diastolic blood pressure 78 mm[Hg] Augustine Metz Other [facility] [employer] Other 10-04-2022 12:00-0500 Respiratory rate 12 /min Augustine Ball Other [facility] [employer] Other 10-04-2022 12:00-0500 Systolic blood pressure 128 mm[Hg] Augustine Metz Other [facility] [employer] Other 10-01-2022 08:30-0500 Diastolic blood pressure 77 mm[Hg] [facility] 10-01-2022 08:30-0500 Systolic blood pressure 132 mm[Hg] [facility] 07-08-2022 11:47-0400 Body height 182.9 cm Pastor Bedoya MD Work Phone: [facility] [employer] [facility] 07-08-2022 11:47-0400 Body mass index (BMI) [Ratio] 33.23 kg/m2 Pastor Bedoya MD Work Phone: [facility] [employer] [facility] 07-08-2022 11:47-0400 Body weight 111.13 kg Pastor Bedoya MD Work Phone: [facility] 05-03-2022 08:48-0400 Blood Pressure Location [facility] 05-03-2022 08:48-0400 Diastolic blood pressure 67 mm[Hg] [facility] 05-03-2022 08:48-0400 Heart rate 70 /min [facility] 05-03-2022 08:48-0400 Respiratory rate 16 /min [facility] 05-03-2022 08:48-0400 Systolic blood pressure 120 mm[Hg] [facility] 04-08-2022 09:49-0400 Body height 182.9 cm Azul Rachel APRN-AIRCRAFT STRUCTURE MECHANIC Work Phone: [facility] 04-08-2022 09:49-0400 Body mass index (BMI) [Ratio] 33.23 kg/m2 Azul Rachel APRN-AIRCRAFT STRUCTURE MECHANIC Work Phone: [facility] 04-08-2022 09:49-0400 Body temperature 96.91 [degF] Azul Rachel APRN-AIRCRAFT STRUCTURE MECHANIC Work Phone: [facility] 04-08-2022 09:49-0400 Body weight 111.13 kg Azul Rachel APRN-AIRCRAFT STRUCTURE MECHANIC Work Phone: [facility] 03-16-2022 11:00-0400 Body temperature 97.7 [degF] Pastor Bedoya MD Work Phone: [facility] 03-16-2022 11:00-0400 Diastolic blood pressure 70 mm[Hg] Pastor Bedoya MD Work Phone: [facility] 03-16-2022 11:00-0400 Heart rate 77 /min Pastor Bedoya MD Work Phone: [facility] 03-16-2022 11:00-0400 Respiratory rate 14 /min Pastor Bedoya MD Work Phone: [facility] 03-16-2022 11:00-0400 SaO2% (BldA) [Mass fraction] 96 % Pastor Bedoya MD Work Phone: [facility] 03-16-2022 11:00-0400 Systolic blood pressure 142 mm[Hg] Pastor Bedoya MD Work Phone: [employer] 03-15-2022 09:00-0400 Body height 182.9 cm Pastor Bedoya MD Work Phone: [employer] 03-15-2022 09:00-0400 Body mass index (BMI) [Ratio] 31.73 kg/m2 Pastor Bedoya MD Work Phone: [employer] 03-15-2022 09:00-0400 Body weight 106.14 kg Pastor Bedoya MD Work Phone: [employer] 2022 12:57-0400 Body height 182.9 cm Pastor Bedoya MD Work Phone: [employer] 2022 12:57-0400 Body mass index (BMI) [Ratio] 33.23 kg/m2 Pastor Bedoya MD Work Phone: [employer] 2022 12:57-0400 Body temperature 97.2 [degF] Pastor Bedoya MD Work Phone: [employer] 2022 12:57-0400 Body weight 111.13 kg Pastor Bedoya MD Work Phone: [employer] 11-04-2021 14:30-0500 Body height Carmen Kahn Other [facility] Other 03-20-2020 11:06-0400 BMI (Body Mass Index) 33.63 kg/m2 [facility] 03-20-2020 11:06-0400 Body Temperature 97.5 [facility]degF[facility]-2020 11:06-0400 Body weight 112.49 kg [facility] [employer] 03-20-2020 11:06-0400 Height 182.9 cm [facility] 1946 00:00-0500 >na< Damari Rojas Dept. of Dermato logy Encounters Encounter Date Encounter Type Care Provider Facility Start: 10-28-2023 Bamboo flowsheet Jose R Hogan Za hler DO Work Phone: [facility] Start: 10-28-2023 Bamboo flowsheet Jose R Maguire hler DO Work Phone: [facility] Start: 10-28-2023 End: 10-28-2023 ambulatory JOSE R CHURCHILLER Not Available Start: 10-24-2023 End: 10-24-2023 ambulatory AB [facility] Start: 09-16-2023 ambulatory [facility] Start: 09-06-2023 End: 09-06-2023 ambulatory [facility] Start: 08-29-2023 End: 08-29-2023 ambulatory JOSE R CHURCHILLER Not Available Start: 08-28-2023 End: 08-29-2023 ambulatory JOSE R MAGUIREHLER Not Available Start: 08-26-2023 End: 08-26-2023 ambulatory JOSE RANASTASIA MAGURIEHLER Not Available Start: 07-11-2023 End: 07-11-2023 ambulatory Augustine Metz Other [facility] Other Start: 07-11-2023 Telephone encounter Augustine Metz [facility] Start: 07-10-2023 End: 07-10-2023 ambulatory Augustine Metz Other [facility] Other Start: 07-10-2023 Telephone encounter Augustine Metz [facility] Start: 07-05-2023 End: 07-05-2023 Emergency department patient visit Augustine Metz Facility:[facility] Start: 03-16-2023 ambulatory AZUL [facility] Start: 03-16-2023 End: 03-16-2023 Office outpatient visit 15 minutes Azul Rachel MANAGER FOR[employer]IRCRAFT STRUCTURE MECHANIC Work Phone: [facility] Comment on above: Hx of total knee art hroplasty, right (Primary Dx) Start: 03-16-2023 End: 03-16-2023 Subsequent hospital visit by physician Azul Rachel MANAGER FORENS[employer]AIRCRAFT STRUCTURE MECHANIC Work Phone: [facility] Start: 02-28-2023 End: 02-28-2023 ambulatory [facility] Start: 02-01-2023 ambulatory AUGUSTINE METZ Facilit y:[facility] Start: 01-24-2023 End: 02-23-2023 ambulatory CARTER Tiburcio FALaureWAD Facility:H1 Start: 01-22-2023 End: 01-22-2023 ambulatory Augustine Metz Other [facility] Other Start: 01-22-2023 Telephone encounter Augustine PHILIPPE [facility] Start: 2023 End: 01-22-[address] AUGUSTINE METZ Facility:[facility]1 Start: 01-05-2023 End: 01-05-2023 ambulatory Augustine Metz Other [facility] Other Start: 01-05-2023 Office outpatient visit 25 minutes Augustine Metz [facility] Start: 12-27-2022 End: 2023 ambulatory SHAIKH Tiburcio MCKEOND Facility:H1 Start: 11-24-2022 End: 12-24-2022 ambulatory CARTER H LINDAD Facility:H1 Start: 11-10-2022 End: 11-10-2022 ambulatory Augustine Metz Other [facility] Other Start: 11-10-2022 Telephone encounter Augustine PHILIPPE [facility] Start: 11-09-2022 Telephone encounter Augustine PHILIPPE [facility] Start: 11-09-2022 End: 11-10-2022 ambulatory AUGUSTINE METZ [facility] [employer] Other Start: 11-08-2022 ambulatory AUGUSTINE METZ Facilit y:[facility] Start: 11-01-2022 End: 11-02-[address] DOCTOR ABERNATHY Facility:H1 Start: 10-28-2022 ambulatory AUGUSTINE METZ Facilit y:[facility] Start: 10-27-2022 End: 11-24-2022 ambulatory SHAIKH Tiburcio PRICE Facility:H1 Start: 10-26-2022 End: 10-27-2022 ambulatory PUJA HOLBROOK MD Facility:[facility] Start: 10-19-2022 End: 10-20-[address] AUGUSTINE METZ Facility:[facility]1 Start: 10-04-2022 Damari Rojas [facility] [employer] Start: 10-04-2022 End: 10-04-2022 ambulatory Augustine Metz Other [facility] Other Start: 10-04-2022 Office outpatient visit 25 minutes Augustine [facility] Start: 10-01-2022 ambulatory Ms. Obdulia Shah Facility:[id number] Start: 09-27-2022 End: 10-27-2022 ambulatory SHAIKH Tiburcio PRICE Facility:H1 Start: 09-14-2022 Damari Rojas Dept. [facility] [employer] Start: 09-09-2022 Pre-procedure evaluation check Augustine Metz Other [facility] Other Start: 09-07-[address] Macario Bui Facility:[id number] Start: 08-26-2022 End: 09-26-2022 ambulatory SHAIKH Tiburcio PRICE Facility:H1 Start: 07-27-2022 End: 08-25-2022 ambulatory SHAIKH Tiburcio PRICE Facility:H1 Start: 07-13-2022 End: 07-14-[address] AUGUSTINE METZ Facility:H1 Start: 07-08-2022 ambulatory PASTOR BEDOYA [facility] Start: 07-08-2022 End: 07-08-2022 Office outpatient visit 15 minutes Pastor Bedoya MD Work Phone: [facility] Comment on above: Hx of total knee art hroplasty, right (Primary Dx) Start: 07-08-2022 End: 07-08-2022 Subsequent hospital visit by physician Pastor Bedoya MD Work Phone: [facility] Start: 06-28-2022 End: 06-29-[address] AUGUSTINE METZ Facility:H1 Start: 06-28-2022 End: 07-26-2022 ambulatory SHAIKH Tiburcio PRICE Facility:H1 Start: 06-15-2022 End: 06-16-[address] AUGUSTINE METZ Facility:H1 Start: 05-27-2022 End: 06-26-2022 ambulatory SHAIKH Tiburcio PRICE Facility:H1 Start: 05-03-2022 End: 05-03-2022 Patient encounter procedure Mc Blackman GAGE [facility] Start: 04-26-2022 End: 04-27-[address] AUGUSTINE METZ Facility:H1 Start: 04-26-2022 End: 05-26-2022 ambulatory SHAIKH Tiburcio PRICE Facility:H1 Start: 04-19-2022 End: 05-08-[address] AUGUSTINE METZ Facility:H1 Start: 04-08-2022 ambulatory AZUL RACHEL [facility] Start: 04-08-2022 End: 04-08-2022 Postop follow up visit related to original px Azul LAN Work Phone: [facility] Comment on above: Hx of total knee art hroplasty, right (Primary Dx) Start: 04-08-2022 End: 04-08-2022 Subsequent hospital visit by physician Azul LAN Work Phone: [facility] Start: 04-07-2022 End: 04-08-[address] AUGUSTINE METZ Facility:H1 Start: 03-26-2022 End: 04-23-2022 ambulatory SHAIKH Tiburcio PRICE Facility:H1 Start: 03-15-2022 End: 03-16-2022 Patient encounter status Pastor Bedoya MD Work Phone: [facility] Start: 03-15-2022 End: 03-16-2022 Subsequent hospital visit by physician Pastor Bedoya MD Work Phone: [facility] Comment on above: S/P total knee arthr oplasty, right Start: 2022 End: 2022 Office outpatient new 60 minutes Pastor Bedoya MD Work Phone: [facility] Comment on above: Right knee pain, uns pecified chronicity (Primary Dx); Pain in prosthetic joint, sequela Start: 2022 End: 2022 Subsequent hospital visit by physician Pastor Bedoya MD Work Phone: [facility] Start: 11-04-2021 End: 11-04-2021 ambulatory Carmen Kahn Other [facility] Other Start: 11-04-2021 Office outpatient visit 25 minutes Carmen Kahn [facility] Start: 11-03-2021 End: 11-03-2021 ambulatory Carmen Lazarooli Other [facility] Other Start: 11-03-2021 Telephone encounter Carmen Kahn [facility] Start: 03-20-2020 End: 03-20-2020 Office outpatient visit 15 minutes Pastor Bedoya Work Phone: [facility] Comment on above: 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) Start: 03-20-2020 End: 03-20-2020 Subsequent hospital visit by physician Azul LAN Work Phone: [facility] Start: 06-13-2019 End: 06-14-2019 Patient encounter procedure GENE JONES Facility:[facility] Procedures Date Procedure Procedure Detail Performing Clinician Start: 10-28-2023 Computerized ophthalmic imaging retina Jose R Dodd DO Work Phone: Start: 10-28-2023 End: 10-28-2023 [facility] medical xm&eval comprhnsv estab pt 1/> 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 Jose R Dodd DO Work Phone: Comment on above: Advanced atrophic nonexudative age-relat ed macular degeneration of both eyes without subfoveal involvement (Primary Dx); Age-related nuclear cataract of both eyes; Dry eyes Start: 10-01-2022 Mohs micrographic h/n/h/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 Damari Rojas Start: 09-14-2022 Damari Rojas Start: 03-16-2022 Complete blood count with white cell differential, automated Samantha Miner Work Phone: Start: 03-16-2022 Renal function panel Domenico Ferguson MD Work Phone: Start: 03-15-2022 Radiologic examination knee 1/2 views Samantha Miner Work Phone: Start: 03-15-2022 End: 03-15-2022 Arthrp kne condyle&platu medial&lat compartments Pastor Bedoya MD Work Phone: Start: 03-15-2022 Prothrombin time Azul Rachel MANAGER [employer]CRAFT STRUCTURE MECHANIC Work Phone: Start: 03-15-2022 Cultyp nuc acid amp prb cult/isolate ea orgnism Azul Rachel MANAGER FOR[employer]IRCRAFT STRUCTURE MECHANIC Work Phone: Start: 03-15-2022 Sars-cov-2 detection by dna/rna Azul ramirez MANAGER FOR[employer]CRAFT STRUCTURE MECHANIC Work Phone: Start: 03-15-2022 Antibody screen rbc each serum technique Pastor Bedoya MD Work Phone: Start: 03-15-2022 End: 03-15-2022 Thromboplastin time partial plasma/whole blood Azul Rachel MANAGER [employer] STRUCTURE MECHANIC Work Phone: Start: 01-10-2020 Renal lithotripsy Mc ALMONTE Start: 10-23-2019 Cystoscopic removal of ureteric stent Mc ALMONTE Start: 09-26-2019 Endoscopic retrograde cholangiopancreatography Mc ALMONTE Cholecystectomy [facility] Colonoscopy Mc ALMONTE Depression screening Benjadri Metz Other Total knee replacement Ro ALMONTE Plan of Treatment Date Care Activity Detail Author Start: 01-10-2024 End: 01-10-2024 Patient encounter procedure 01/10/2024 9:35 AM EDT Office Visit [facility] [address] [place] [id number] Obdulia Shah MANAGER FORENS[employer]AIRCRAFT STRUCTURE MECHANIC [address] [place] [address] [facility] Start: 10-28-2023 End: 10-28-2023 Patient encounter procedure 10/28/2023 9:30 AM EST Procedure Visit [facility] [address] [place] [id number] Jose R Dodd, [address] [place], [place] [id number] Arrived [facility] Comment on above: Arrived Start: 05-27-2023 Influenza vaccination Influenza Vacc ine (#1) [facility] Start: 03-16-2023 End: 03-16-2023 Patient encounter procedure 03/16/2023 Office Visit Orthopaedics Azul Rachel, MANAGER [employer] STRUCTURE MECHANIC [address] [place] [address] [facility] Start: 10-22-2022 COVID-19 VACCINE (6 - Pfizer series) COVID-19 VACCINE (6 - Pfizer series) [facility] Start: 08-21-2022 Hemoglobin A1c measurement HBA1C TEST [facility] Start: 07-08-2022 End: 07-08-2022 Patient encounter procedure 07/08/2022 Office Visit Orthopaedics Pastor Bedoya MD [address] [place] [address] [facility] Start: 05-27-2022 Influenza vaccination A [facility] Start: 04-08-2022 End: 04-08-2022 Patient encounter procedure 04/08/2022 Office Visit Orthopaedics Azul Rachel, MANAGER FOR[employer]CRA[employer] STRUCTURE MECHANIC [address] [place] [address] [facility] Start: 02-18-2022 End: 02-18-2022 ambulatory 02/18/2022 Pre-Operative Nurse Assessment Internal Medicine [facility] Pre Admission Start: 05-27-2020 Influenza vaccination INFLUENZ A VACCINE (Season Ended) [facility] Start: 12-25-2014 Pneumococcal vaccination PNEUMOCOCCAL VACCINE SERIES (2 - PCV) [facility] Start: 12-25-2014 Pneumococcal Vaccine : 65+ Years (2 - PCV) Pneumococcal Vaccine: 65+ Years (2 - PCV) [facility] Start: 2011 Abdominal aortic aneurysm screening ABDOMINAL AORTIC ANEURYSM HIGH RISK SCREEN [facility] Start: 2011 Pneumococcal vaccination [facility] Start: 01-22-1996 Colonoscopy COLORECTAL CAN CER SCREENING DISCUSSION [facility] Start: 01-22-1996 Prostate specific antigen measurement PROSTATE CANCER SCREENING DISCUSSION [facility] Start: 01-22-1996 Zoster vaccine hzv live for subcutaneous use ZOSTER (SHINGLES) VACCINE (1 of 2) [facility] Start: 1991 Colonoscopy COLORECTAL CAN CER SCREENING DISCUSSION [facility] Start: 1991 Screening for malignant neoplasm of colon COLORECTAL CANCER SCREENING DISCUSSION [facility] Start: 1986 Fasting lipid profile LIPID SCREENIN G [facility] Start: 1965 Third diphtheria, tetanus and acellular pertussis (DTaP) vaccination TDAP (ADULT) [facility] Start: 01-22-1964 Tetanus vaccination TETANUS [facility] Start: 1951 COVID-19 VACCINE (#1) COVID-19 VACCI NE (#1) [facility] Start: 1946 COVID-19 VACCINE (#1) COVID-19 VACCI NE (#1) [facility] Start: 1946 Diabetic foot examination DIABETIC FOOT EXAM [facility] Start: 1946 Diabetic retinal eye exam EYE EXAM [facility] Start: 1946 Glaucoma screening EYE EXAM [facility] Start: 1946 Hepatitis B vaccination HEP B VACCINE (1 of 3 - 3-dose series) [facility] Start: 1946 Hepatitis C antibody , confirmatory test HEPATITIS C VIRUS SCREENING [facility] Start: 1946 Hepatitis C screening HEPATITI S C VIRUS SCREENING [facility] Start: 1946 Lipid panel LIPIDS [facility] Start: 1946 LIPIDS LIPIDS [facility] Start: 1946 Microalbumin measurement, urine, quantitative URINE MICROALBUMIN TEST [facility] Start: 1946 Potassium [Moles/Vol] POTASSIUM A [facility] Start: 1946 Tetanus vaccination TETANUS [facility] Start: 1946 Urine screening for protein URINE MICROALBUMIN TEST [facility] Radiography for bone length studies XR BONE LENGTH STUDY Imaging Routine Hx of total knee arthroplasty, right 07/08/2022 11:01 AM EDT [facility] Work Phone: SURGICAL PATHOLOGY REQUEST SURGICAL PATHOLOGY REQUEST Surg Path Routine Osteoarthritis of right knee, unspecified osteoarthritis type Release Upon Ordering for 1 Occurrences starting 03/15/2022 [facility] Work Phone: Comment on above: Release Upon Orderin g for 1 Occurrences starting 03/15/2022 X-ray of left knee XR KNEE LEFT 3 VIEWS Imaging Routine History of revision of total replacement of left knee joint 03/20/2020 10:48 AM EDT [employer] XR Knee - left 3 Views XR KNEE L EFT 3 VIEWS Imaging Routine Pain in prosthetic joint, sequela 2022 1:09 PM EDT [employer] XR Knee - right 3 Views XR KNEE RIGHT 3 VIEWS Imaging Routine Hx of total knee arthroplasty, right 04/08/2022 10:04 AM [employer] XR Knee - right 3 Views XR KNEE RIGHT 3 VIEWS Imaging Routine Hx of total knee arthroplasty, right 07/08/2022 11:01 AM ED [employer] XR Knee - right 3 Views XR KNEE RIGHT 3 VIEWS Imaging Routine Hx of total knee arthroplasty, right 03/16/2023 11:03 AM EDT [employer] XR Knee - right 4 Views XR KNEE RIGHT 4+ VIEWS Imaging Routine Right knee pain, unspecified chronicity 2022 12:51 PM EDT [facility] Immunizations Immunization Date Immunization Notes Care Provider Dunia burrell 07-08-2023 influenza, high dose seasonal, preservative-free Augustine Metz Other [facility] Other 03-03-2023 zoster vaccine recombinant Augustine Ball Other [facility] Other 01-01-2023 zoster vaccine recombinant Augustine Ball Other [facility] Other 06-29-2022 influenza, high dose seasonal, preservative-free Augustine Metz Other [facility] Other 06-29-2022 influenza virus vaccine, split virus (incl. purified surface antigen) Augustine Metz Other [facility] Other 06-29-2022 influenza virus vaccine, unspecified formulation Jose R Dodd DO Work Phone: [facility] 06-22-2022 COVID-19 Pfizer (bivalent) Augustine Metz Other [facility] Other 07-15-2021 influenza virus vaccine, split virus (incl. purified surface antigen) Augustine Metz Other [facility] Other 06-22-2021 COVID-19 Vaccine Pfi zer - Documentation Purposes Only Augustine Metz Other [facility] Other 11-20-2020 COVID-19 Vaccine Pfi zer - Documentation Purposes Only Augustine Metz Other [facility] Other 10-30-2020 COVID-19 Vaccine Pfi zer - Documentation Purposes Only Augustine Metz Other [facility] Other 07-01-2020 influenza virus vaccine, split virus (incl. purified surface antigen) Augustine Metz Other [facility] Other 07-06-2019 influenza virus vaccine, split virus (incl. purified surface antigen) Augustine Isaías Other [facility] Other 07-12-2018 influenza virus vaccine, split virus (incl. purified surface antigen) Augustine Isaías Other [facility] Other 07-25-2017 influenza virus vaccine, split virus (incl. purified surface antigen) Augustine Isaías Other [facility] Other 07-07-2016 influenza virus vaccine, split virus (incl. purified surface antigen) Augustine Isaías Other [facility] Other 07-18-2015 pneumococcal conjuga te vaccine, 13 valent Augustine Isaías Other [facility] Other 06-11-2015 influenza virus vaccine, split virus (incl. purified surface antigen) Augustine Isaías Other [facility] Other 06-17-2014 tetanus and diphther ia toxoids, adsorbed, preservative free, for adult use (5 Lf of tetanus toxoid and 2 Lf of diphtheria toxoid) Augustine Metz Other [facility] Other 08-28-2013 pneumococcal polysaccharide vaccine, 23 valent Augustine Isaías Other [facility] Other 07-26-2013 tetanus and diphther ia toxoids, adsorbed, preservative free, for adult use (5 Lf of tetanus toxoid and 2 Lf of diphtheria toxoid) Augustine Metz Other [facility] Other 07-18-2013 zoster vaccine, live Ramirez letty Metz Other [facility] Other 1945 pneumococcal conjuga te vaccine, 7 valent Damari Rojas Dept. of Dermatology Payers Date Payer Category Payer Unknown [employer] [id number] 2017-Present [id number]. [id number] 2010 Medicare MEDICARE MEDICAR E A AND B [id number] 2010-Present [place], [place] [id number]. [id number] 2008 Medicare [id number]. [id number]. [id number] 2008 Unknown [id number]. 1.13.172.2.7.3. [id number] 1959 Medicare [id number] 2.16.840.1.885909.19 1959 Unknown [id number] 1946 Unknown [id number] 2.16.840.1.789305.3.579.2.647 1946 Unknown [id number] 2.16.840.1.942717.3.579.2.356 1946 Unknown [id number] 2.16.840.1.067993.3.579.2.356 1946 Unknown [id number] 2.16.840.1.182514.3.579.2.159 1946 Unknown [id number] 2.16.840.1.626794.3.579.2.159 1946 Unknown [id number] 2.16.840.1.883307.3.579.2.159 1946 Unknown [id number] 2.16.840.1.895964.3.579.2.159 1946 Unknown [id number] 2.16.840.1.707369.3.579.2.159 1946 Unknown [id number] 2.16.840.1.243370.3.579.2.593 1946 Unknown [id number] 2.16.840.1.244902.3.579.2.593 1946 Unknown [id number] 2.16.840.1.784630.3.579.2.593 1946 Unknown [id number] 2.16.840.1.138203.3.579.2.593 1946 Unknown [id number] 2.16.840.1.460971.3.579.2.593 1946 Unknown [id number] 2.16.840.1.176928.3.579.2.593 1946 Unknown [id number] 2.16.840.1.548034.3.579.2.593 1946 Unknown [id number] 2.16.840.1.688391.3.579.2.593 1946 Unknown [id number] 2.16.840.1.082768.3.579.2.593 1946 Unknown [id number] 2.16.840.1.504732.3.579.2.593 1946 Unknown [id number] 2.16.840.1.914142.3.579.2.593 1946 Unknown [id number] 2.16.840.1.939417.3.579.2.593 1946 Unknown [id number] 2.16.840.1.150855.3.579.2.593 1946 Unknown [id number] 2.16.840.1.444620.3.579.2.593 1946 Unknown [id number] 2.16.840.1.310044.3.579.2.593 1946 Unknown [id number] 2.16.840.1.176658.3.579.2.593 1946 Unknown [id number] 2.16.840.1.042900.3.579.2.593 1946 Unknown [id number] 2.16.840.1.726264.3.579.2.593 1946 Unknown [id number] 2.16.840.1.355210.3.579.2.593 1946 Unknown [id number] 2.16.840.1.313154.3.579.2.593 1946 Unknown [id number] 2.16.840.1.010025.3.579.2.983 1946 Unknown [id number] 2.16.840.1.843789.3.579.2.983 1946 Unknown [id number] 2.16.840.1.182825.3.579.2.983 1946 Unknown [id number] 2.16.840.1.693925.3.579.2.983 1946 Unknown [id number] 2.16.840.1.233906.3.579.2.983 1946 Unknown [id number] 2.16.840.1.323566.3.579.2.983 1946 Unknown [id number] 2.16.840.1.573924.3.579.2.718 1946 Unknown [id number] 2.16.840.1.435560.3.579.2.1259 1946 Unknown [id number] 2.16.840.1.165218.3.579.2.1259 1946 Unknown [id number] 2.16.840.1.592114.3.579.2.1259 1946 Unknown [id number] 2.16.840.1.719625.3.579.2.1259 Medicare [id number] Social History Date Type Detail Facility Start: 03-20-2020 End: 06-23-2023 Tobacco smoking status NHIS Former smoker [facility] End: 02-08-1983 History of tobacco use Current smoker [facility] Start: 03-20-2020 End: 07-08-2022 Tobacco use and exposure Former user [facility] End: 02-08-2003 History of tobacco use User of smokeless tobacco [facility] Start: 03-20-2020 End: 03-16-2023 Alcohol intake Current non-drinker of alcohol (finding) [facility] Start: 1945 Sex Assigned At Not on file A [facility] Start: 03-05-2022 End: 03-15-2022 Exposure to SARS-CoV-2 (event) Not sure [facility] Start: 03-16-2023 End: 06-30-2023 Sex Assigned At [facility] [employer] Other Start: 05-03-2022 Tobacco smoking status Never smoked tobacco (finding) [facility] End: 02-08-1983 History of tobacco use Cigarette Smoker [facility] Start: 09-14-2022 Dept. of D ermatology Start: 1945 Sex Assigned At Male [facility] Start: 03-16-2023 End: 06-30-2023 History of Social function [facility] Gender identity Identifies as ma le gender (finding) [facility] Start: 08-29-2023 End: 10-28-2023 Alcohol intake Lifetime non-drinker (finding) [facility] Start: 06-23-2023 Alcohol Comment caffeine: soda [facility] Medical Equipment Procedure Code Equipment Code Equipment Origin al Text Equipment Identifier Dates Attune Tibial In sert Fixed Bearing Posterior Stabilized [id number] Start: 03-15-2022 Goals Date Patient Goal Desired Activity /State Functional Status Date Assessment Result Facility 05-03-2022 Functional Status N/A [facility] Clinical Notes 11-04-2021 to 10-28-2023 Jose R Dodd DO - 10/28/2023 9:30 AM Marco Chahal - 03/16/2023 11:20 AM EDYTA Carranza - 03/16/2023 11:20 AM EDT Note Date & Type Note Facility 10-28-2023 Note Right Eye Quality was good. Scan locations included subfoveal. Progression has been stable. Findings include abnormal foveal contour, disciform scar. Left Eye Quality was good. Scan locations included subfoveal. Progression has been stable. Findings include normal observations. [facility] 10-28-2023 History of Present illness Narrative Images from the original note were not included. 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 Importance of smoking cessation, blood pressure control, and healthy diet were emphasized. Patient was advised to consider ultraviolet-B blocking sunglasses. In accordance with the AREDS study, appropriate antioxidant and mineral supplements were prescribed. Patient was instructed to self monitor their monocular vision (reading/Amsler Grid) at least weekly. Patient should immediately report any new onset of decreased vision or metamorphopsia. - Mr. Goncalves has been stable from a wet age-related macular degeneration (ARMD) standpoint. Advised to observe for now given soon to be trip to [place] as well as side effects from last treatment in August. He was provided an [place] grid to check daily and note any changes to this. He understands to get jacob of his retina specialist in [place] if there was a change. Will see back in late November for reevaluation. Age-related nuclear cataract of both eyes - Cataract, OU: Observe for now without intervention. The patient was advised to contact us if any change or worsening of vision Dry eyes - Dry Eyes OU -- Environmental changes to minimize dryness and exposure and the use of artificial tears were recommended. documented in this encounter [facility] 10-24-2023 Note [facility] Cardiology Clinic Note Chief Complaint: Patient here for shared decision making discussion regarding LAAO closure device. This is scheduled for Nov [id number] with Dr. Crane. Denies chest pain, SOB, palpitations, lightheadedness/syncope, and bleeding on warfarin. HPI: Tito Goncalves is a 78 y.o. male With a history of paroxysmal atrial fibrillation, diabetes, hypertension, and falls resulting in intracranial bleed. He is here to discuss possible left atrial appendage occlusion. Over the past several months, he has had 2 falls. They seem accidental and related to mechanical trips. He denies significant lightheadedness or dizziness. He has no syncope. 1 of these falls resulted in an intra cerebral bleed. Cardiology ROS: Review of Systems Cardiovascular: Positive for leg swelling (resolves by morning). Hematologic/Lymphatic: Bruises/bleeds easily. Musculoskeletal: Positive for arthritis, back pain, falls and myalgias. All other systems reviewed and are negative. Past Medical History He has a past medical history of Abnormal ECG, Arrhythmia, Atrial fibrillation (CMS/HCC), Heart valve disease, Hypertension, and Sleep apnea. Surgical History He has a past surgical history that includes Cardioversion; Cholecystectomy; Replacement total knee oncologic; and Knee surgery. Social History He reports that he has quit smoking. His smoking use included cigarettes. He has never used smokeless tobacco. He reports that he does not currently use alcohol. No history on file for drug use. Family History Family History Problem Relation Name Age of Onset Cancer Mother Heart attack Other Allergies Iodine, Penicillins, Shellfish containing products, and Sulfa (sulfonamide antibiotics) Medications No current outpatient medications on file. Last Recorded Vitals BP 148/72 (BP Location: Right arm, Patient Position: Sitting) Pulse 65 Ht 1.829 m (6') Wt 112 kg (248 lb) SpO2 95% BMI 33.63 kg/m??? Physical Examination: GENERAL: alert and oriented x3, well developed, in no acute distress. HEAD: atraumatic, normocephalic. EYES: ARIK, EOMI. NECK: trachea midline, no JVD present, no carotid bruits present. CARDIAC: S1, S2 present. RRR. No murmur, rubs, or gallops. RESPIRATORY: CTAB, no increased effort of breathing, no rales, rhonchi, or wheezing. ABDOMEN: soft, nontender, nondistended. EXTREMITIES: no lower extremity edema, peripheral pulses are 2+ bilaterally. No rash/skin discoloration present. NEURO: strength/sensation equal and symmetric in bilateral upper and lower extremities. PSYCH: appropriate mood, affect, and judgement. Transesophageal Echocardiogram-[facility] Name: TITO GONCALVES Study Date: 09/16/2023 09:38 AM B/P: 136 mmHg/70 mmHg HR: Date of : 1945 Location: [facility] Height: 72 in. Age: 78 year(s) Patient Room : [facility] PO[facility] Weight: 246 lb. Gender: Male Patient Status: OutPt BSA: 2.33 m2 Indication: Atrial Fibrillation, Pre LAAO closure Examination: JESSICA/Limited Doppler/CFI, Agitated Saline, 3D images Image Quality: Good Patient Consent: Informed, written consent was obtained for the procedure s p @ c 3 Exam Location: A JESSICA was performed in the [employer] without complications s p @ c 3 Anesthesia Pharyngeal anesthesia with viscous Lidocaine Conclusions Left Ventricle: The left ventricle appears normal in size. Global left ventricular systolic function is normal. The EF is 55 % visually. Left ventricular wall thickness is normal. No regional wall motion abnormality. Right Ventricle: The right ventricle appears normal in size. Normal right ventricular systolic function. Left Atrium: The left atrium is severely enlarged. Left Atrium Appendage: Normal left atrial appendage, no thrombus seen. Mitral Valve: Mild mitral regurgitation. Overall Conclusions: Pre-procedural JESSICA performed for left atrial appendage closure evaluation Assessment: Paroxysmal atrial fibrillation Essential hypertension Diabetes mellitus type 2 Stage IIIa chronic kidney disease Mitral regurgitation Ascending aortic dilatation Obstructive sleep apnea Frequent falls; history of Intracranial bleed Plan: We discussed the appropriateness of left atrial appendage occlusion; since we do not know why he has recurrent falls, his risk for further falls is high. His risk for intracranial bleeding which may be life-threatening is therefore also high. I believe he would be a reasonable candidate for left atrial appendage occlusion. He has discussed this with our structural heart team. He is scheduled for the procedure on 01 November. He is to follow instructions by the structural team. Return to clinic in 6 months or sooner should problems arise Maggy Murphy MD, MPH, FACC, [facility], [facility] Interventional Cardiology Pager Email: [email or web address] 09-06-2023 Note ID Cardiology - [facility] Subjective Tito Goncalves is a 78 y.o. year old male patient being seen to discuss LAAO. He presented to [facility] ED in Jun 2023 for fall. He is anticoagulated with warfarin for afib. Back in December 2022 he had brain bleed s/p fall. Was treated at [facility]. He denies chest pain, SOB, and lightheadedness/syncope. Patient Active Problem List Diagnosis Atrial fibrillation (CMS/HCC) Hypertensive disorder Mitral valve disorder Obstructive sleep apnea syndrome Arrhythmia Bile duct obstruction Fall Gastroesophageal reflux disease without esophagitis Hyponatremia Mixed hyperlipidemia Pneumobilia Restless leg syndrome S/P total knee arthroplasty, right Stage 3a chronic kidney disease (CMS/HCC) Subdural hematoma (CMS/HCC) Type 2 diabetes mellitus without complication, without long-term current use of insulin (CMS/HCC) Benign prostatic hyperplasia with urinary obstruction Calculus of ureter Diabetes mellitus (CMS/HCC) Dry eyes Exposure keratitis 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 He is a 78-year-old man with history of paroxysmal atrial fibrillation, it started in 2012. He is maintained on warfarin for anticoagulation and propafenone for rhythm control. He has history of hypertension on treatment. He has history of obstructive sleep apnea. He has diabetes and used to be on metformin but currently controlled on diet. In April 2019 he presented to the [facility] with atrial fibrillation with controlled ventricular response. In December 2022 he fell and sustained a subsequent brain bleed. He was placed back on warfarin few weeks later. He then fell again recently and was evaluated in the emergency room because of head trauma and abrasions to the face. Review of Systems Cardiovascular: Positive for leg swelling (resolves by morning). Hematologic/Lymphatic: Bruises/bleeds easily. Musculoskeletal: Positive for arthritis, back pain, falls and myalgias. All other systems reviewed and are negative. Objective Visit Vitals BP 124/72 (BP Location: Left arm, Patient Position: Sitting) Pulse 58 Ht 1.829 m (6') Wt 112 kg (246 lb) SpO2 97% BMI 33.36 kg/m??? Smoking Status Former BSA 2.39 m??? Physical Exam Constitutional: Appearance: He is well-developed. He is obese. He is not ill-appearing. HENT: Head: Normocephalic and atraumatic. Nose: Nose normal. Eyes: General: No scleral icterus. Pupils: Pupils are equal, round, and reactive to light. Neck: Thyroid: No thyromegaly. Vascular: No JVD. Cardiovascular: Rate and Rhythm: Normal rate and regular rhythm. Pulses: Radial pulses are 2+ on the right side and 2+ on the left side. Heart sounds: Normal heart sounds. No murmur heard. No friction rub. No gallop. Pulmonary: Effort: Pulmonary effort is normal. No respiratory distress. Breath sounds: Normal breath sounds. No wheezing or rales. Chest: Chest wall: No tenderness. Abdominal: General: Bowel sounds are normal. There is no distension. Palpations: Abdomen is soft. Tenderness: There is no abdominal tenderness. Musculoskeletal: General: No swelling. Cervical back: Neck supple. Skin: General: Skin is warm and dry. Neurological: General: No focal deficit present. Mental Status: He is alert and oriented to person, place, and time. Psychiatric: Mood and Affect: Mood normal. Behavior: Behavior is cooperative. Judgment: Judgment normal. Allergies Allergies Allergen Reactions Iodine Anaphylaxis Penicillins Hives Shellfish Containing Products Other Sulfa (Sulfonamide Antibiotics) Rash Medications Current Outpatient Medications: amLODIPine (Norvasc) 10 mg tablet, Take 1 tablet by mouth in the morning., Disp: , Rfl: aspirin 81 mg EC tablet, Take 1 tablet every day by oral route., Disp: , Rfl: atorvastatin (Lipitor) 10 mg tablet, Take 1 tablet by mouth in the evening., Disp: , Rfl: benazepril (Lotensin) 20 mg tablet, Take 1 tablet by mouth in the morning., Disp: , Rfl: carvedilol (Coreg) 12.5 mg tablet, Take 1 tablet (12.5 mg) by mouth with breakfast and with evening meal., Disp: 180 tablet, Rfl: 3 clonazePAM (KlonoPIN) 1 mg tablet, , Disp: , Rfl: omeprazole (PriLOSEC) [address] capsule, Take 1 capsule every day by oral route for 90 days., Disp: , Rfl: propafenone (Rythmol) 150 mg tablet, Take 1 tablet (150 mg) by mouth in the morning, at noon, and at bedtime., Disp: 270 tablet, Rfl: 3 traZODone (Desyrel) 50 mg tablet, Take 1 tablet (more content not included)... [facility] 03-16-2023 History of Present illness Narrative Ortho Nurse - Established Patient Intake Room#: 5 Date: 03/16/2023 11:20 AM Patient: Tito Goncalves MR#: [id number] : 1945 Age: 78 y.o. 1yr R TKA Pt stated he is doing good and denies any pain at this time 0/10 on the pain scale. Referring Physician: Self, Self Insurance: Payor: MEDICARE / Plan: MEDICARE A AND B / Product Type: *No Product type* / Chief Complaint Patient presents with Right Knee - Follow-up Visit Vitals Temp 97.2 F (36.2 C) (Temporal) Ht 1.829 m (6') Wt 111.1 kg (245 lb) BMI 33.23 kg/m Pain Recent Labs No results found for: CRP No results found for: SEDRATE Lab Results Component Value Date WBC 9.5 03/16/2022 HGB 11.7 (L) 03/16/2022 HCT 33.9 (L) 03/16/2022 PLATELET 154 03/16/2022 MCV 87.2 03/16/2022 History Past Medical History: Diagnosis Date Skin cancer 2013 2017,2013 Arrhythmia afid not since 2018 Diabetes mellitus Essential hypertension, benign Hyperlipidemia OA (osteoarthritis) of knee bilat CUBA (obstructive sleep apnea) RA (rheumatoid arthritis) Past Surgical History: Procedure Laterality Date ARTHROPLASTY KNEE TOTAL Right 03/15/2022 Laterality: Right; Surgeon: Pastor Bedoya MD; Location: [facility] ARTHROPLASTY KNEE Left 02/22/2017 ARTHROPLASTY KNEE TOTAL Left 06/23/2015 CHOLECYSTECTOMY 2012 Family History: His family history includes Breast Cancer in his mother; Diabetes in his father; Heart Disease - Other in his father; Hypertension in his father and mother. Social History: His reports that he quit smoking about 40 years ago. His smoking use included cigarettes. He quit smokeless tobacco use about 20 years ago. He reports that he does not drink alcohol and does not use drugs. Outpatient Medications Prior to Visit Medication Sig Dispense Refill acetaminophen 325 MG tablet Take 2 tablets by mouth every 4 hours as needed for Mild Pain. 50 tablet 1 amLODIPine 10 MG Tab tablet Take 1 tablet by mouth. aspirin EC [address] Take 1 tablet by mouth daily. atorvastatin 10 MG Tab tablet Take 1 tablet by mouth every evening. benazepril 20 MG Tab Take 1 tablet by mouth daily. carveDILOL 6.25 MG tablet Take 1 tablet by mouth 2 times daily. clindamycin 150 MG capsule Take 4 capsules 1 hour before the procedure 8 capsule 1 clonazePAM 1 MG tablet Take 1 tablet by mouth every evening. docusate 100 MG capsule Take 1 capsule by mouth 2 times daily. 60 capsule 0 Multiple Vitamins-Minerals (PRESERVISION AREDS PO) Take by mouth. omeprazole [address] capsule Take 1 capsule by mouth daily every morning. propafenone 150 MG tablet Take by mouth every 8 hours. therapeutic multivitamin-minerals tablet Take 1 tablet by mouth at bedtime. 30 tablet 0 traZODone 50 MG tablet Take 1 tablet by mouth every evening at 6 PM. warfarin 5 MG tablet 1 tablet. oxyCODONE 5 MG tablet Take one to two tabs every 4-6 hours as needed for severe pain. Wean as tolerated 30 tablet 0 No facility-administered medications prior to visit. Current Outpatient Medications: acetaminophen 325 MG tablet, Take 2 tablets by mouth every 4 hours as needed for Mild Pain., Disp: 50 tablet, Rfl: 1 amLODIPine 10 MG Tab tablet, Take 1 tablet by mouth., Disp: , Rfl: aspirin EC [address], Take 1 tablet by mouth daily., Disp: , Rfl: atorvastatin 10 MG Tab tablet, Take 1 tablet by mouth every evening., Disp: , Rfl: benazepril 20 MG Tab, Take 1 tablet by mouth daily., Disp: , Rfl: carveDILOL 6.25 MG tablet, Take 1 tablet by mouth 2 times daily., Disp: , Rfl: clindamycin 150 MG capsule, Take 4 capsules 1 hour before the procedure, Disp: 8 capsule, Rfl: 1 clonazePAM 1 MG tablet, Take 1 tablet by mouth every evening., Disp: , Rfl: docusate 100 MG capsule, Take 1 capsule by mouth 2 times daily., Disp: 60 capsule, Rfl: 0 Multiple Vitamins-Minerals (PRESERVISION AREDS PO), Take by mouth., Disp: , Rfl: omeprazole [address] capsule, Take 1 capsule by mouth daily every morning., Disp: , Rfl: propafenone 150 MG tablet, Take by mouth every 8 hours., Disp: , Rfl: therapeutic multivitamin-minerals tablet, Take 1 tablet by mouth at bedtime., Disp: 30 tablet, Rfl: 0 traZODone 50 MG tablet, Take 1 tablet by mouth every evening at 6 PM., Disp: , Rfl: warfarin 5 MG tablet, 1 tablet., Disp: , Rfl: oxyCODONE 5 MG tablet, Take one to two tabs every 4-6 hours as needed for severe pain. Wean as tolerated, Disp: 30 tablet, Rfl: 0 Allergies: He is allergic to iodine, penicillin g, shellfish allergy, and sulfa antibiotics. HPI: Patient is here today for evaluation of their operative knee. He is status post total knee arthroplasty. He is about a year out, reports that he is doing well and is pleased with the outcome of the intervention. The knee feels better now than it did before, and he is not having any new symptoms with it. PHYSICAL EXAM: The operative lower extremity is soft, nontender, full and supple motion. No pain, no impingement. No instability. He has full return of motion, 0-120 degrees, stable examination to varus and valgus stress with normal balance throughout the arc of motion. The contralateral extremity has full motion, normal stability, no tenderness. Both extremities have normal neurovascular status. Skin is otherwise intact. DIAGNOSTIC STUDIES/INTERPRETATION: Plain film radiographs reviewed. He has a Cemented total knee arthroplasty in good position and alignment. No evidence of prosthetic implant loosening or migration. IMPRESSION: Stable status post total knee arthroplasty, doing well. PLAN: I am pleased with the outcome of intervention. He has made an excellent recovery. I expect continued improvement in strength and mobility moving forward. I recommend followup in 2 years for repeat clinical and radiographic examination or sooner if any new symptoms develop. Tylenol may be used to manage any aches and pains as needed. He will call with any questions or concerns in the meantime. Greater than 20 minutes time was spent in review of the medical records, review of previous imaging, and more than 50% of that time was spent on face to face time with patient. EDTYA Ayala I have reviewed the findings of the clinical client support analyst and agree with their assessment. Ortho Nurse - Established Patient Intake Room#: 5 Date: 03/16/2023 11:20 AM Patient: Tito Goncalves MR#: [id number] : 1945 Age: 78 y.o. 1yr R TKA Pt stated he is doing good and denies any pain at this time 0/10 on the pain scale. Referring Physician: Self, Self Insurance: Payor: MEDICARE / Plan: MEDICARE A AND B / Product Type: *No Product type* / Chief Complaint Patient presents with Right Knee - Follow-up Visit Vitals Temp 97.2 F (36.2 C) (Temporal) Ht 1.829 m (6') Wt 111.1 kg (245 lb) BMI 33.23 kg/m Pain Recent Labs No results found for: CRP No results found for: SEDRATE Lab Results Component Value Date WBC 9.5 03/16/2022 HGB 11.7 (L) 03/16/2022 HCT 33.9 (L) 03/16/2022 PLATELET 154 03/16/2022 MCV 87.2 03/16/2022 History Past Medical History: Diagnosis Date Skin cancer 2013 2017,2013 Arrhythmia afid not since 2018 Diabetes mellitus Essential hypertension, benign Hyperlipidemia OA (osteoarthritis) of knee bilat CUBA (obstructive sleep apnea) RA (rheumatoid arthritis) Past Surgical History: Procedure Laterality Date ARTHROPLASTY KNEE TOTAL Right 03/15/2022 Laterality: Right; Surgeon: Pastor Bedoya MD; Location: [facility] ARTHROPLASTY KNEE Left 02/22/2017 ARTHROPLASTY KNEE TOTAL Left 06/23/2015 CHOLECYSTECTOMY 2012 Family History: His family history includes Breast Cancer in his mother; Diabetes in his father; Heart Disease - Other in his father; Hypertension in his father and mother. Social History: His reports that he quit smoking about 40 years ago. His smoking use included cigarettes. He quit smokeless tobacco use about 20 years ago. He reports that he does not drink alcohol and does not use drugs. Outpatient Medications Prior to Visit Medication Sig Dispense Refill acetaminophen 325 MG tablet Take 2 tablets by mouth every 4 hours as needed for Mild Pain. 50 tablet 1 amLODIPine 10 MG Tab tablet Take 1 tablet by mouth. aspirin EC [address] Take 1 tablet by mouth daily. atorvastatin 10 MG Tab tablet Take 1 tablet by mouth every evening. benazepril 20 MG Tab Take 1 tablet by mouth daily. carveDILOL 6.25 MG tablet Take 1 tablet by mouth 2 times daily. clindamycin 150 MG capsule Take 4 capsules 1 hour before the procedure 8 capsule 1 clonazePAM 1 MG tablet Take 1 tablet by mouth every evening. docusate 100 MG capsule Take 1 capsule by mouth 2 times daily. 60 capsule 0 Multiple Vitamins-Minerals (PRESERVISION AREDS PO) Take by mouth. omeprazole [address] capsule Take 1 capsule by mouth daily every morning. propafenone 150 MG tablet Take by mouth every 8 hours. therapeutic multivitamin-minerals tablet Take 1 tablet by mouth at bedtime. 30 tablet 0 traZODone 50 MG tablet Take 1 tablet by mouth every evening at 6 PM. warfarin 5 MG tablet 1 tablet. oxyCODONE 5 MG tablet Take one to two tabs every 4-6 hours as needed for severe pain. Wean as tolerated 30 tablet 0 No facility-administered medications prior to visit. Current Outpatient Medications: acetaminophen 325 MG tablet, Take 2 tablets by mouth every 4 hours as needed for Mild Pain., Disp: 50 tablet, Rfl: 1 amLODIPine 10 MG Tab tablet, Take 1 tablet by mouth., Disp: , Rfl: aspirin EC [address], Take 1 tablet by mouth daily., Disp: , Rfl: atorvastatin 10 MG Tab tablet, Take 1 tablet by mouth every evening., Disp: , Rfl: benazepril 20 MG Tab, Take 1 tablet by mouth daily., Disp: , Rfl: carveDILOL 6.25 MG tablet, Take 1 tablet by mouth 2 times daily., Disp: , Rfl: clindamycin 150 MG capsule, Take 4 capsules 1 hour before the procedure, Disp: 8 capsule, Rfl: 1 clonazePAM 1 MG tablet, Take 1 tablet by mouth every evening., Disp: , Rfl: docusate 100 MG capsule, Take 1 capsule by mouth 2 times daily., Disp: 60 capsule, Rfl: 0 Multiple Vitamins-Minerals (PRESERVISION AREDS PO), Take by mouth., Disp: , Rfl: omeprazole [address] capsule, Take 1 capsule by mouth daily every morning., Disp: , Rfl: propafenone 150 MG tablet, Take by mouth every 8 hours., Disp: , Rfl: therapeutic multivitamin-minerals tablet, Take 1 tablet by mouth at bedtime., Disp: 30 tablet, Rfl: 0 traZODone 50 MG tablet, Take 1 tablet by mouth every evening at 6 PM., Disp: , Rfl: warfarin 5 MG tablet, 1 tablet., Disp: , Rfl: oxyCODONE 5 MG tablet, Take one to two tabs every 4-6 hours as needed for severe pain. Wean as tolerated, Disp: 30 tablet, Rfl: 0 Allergies: He is allergic to iodine, penicillin g, shellfish allergy, and sulfa antibiotics. documented in this encounter [facility] 02-28-2023 Note Cardiovascular Medic [facility] SUBJECTIVE Chief Complaint Patient presents with Atrial Fibrillation Hypertension Tito Goncalves is a 78 y.o. male here for follow-up. HPI PMHx of paroxysmal a.fib s/p CV'n 2018, HTN, mild MR, CUBA He had a fall back in December,. He suffered a brain bleed. He is back on warfarin, it was held for about 10 days. He reports he missed a step on his latter. He otherwise denies any issues with balance. He gets some leg swelling at the end of the day and this is improved by the AM. He denies c/o CP, dyspnea, orthopnea, PND, dizziness/LH, palpitations. Patient Active Problem List Diagnosis Atrial fibrillation (CMS/HCC) Hypertensive disorder Mitral valve disorder Obstructive sleep apnea syndrome Arrhythmia Bile duct obstruction Fall Gastroesophageal reflux disease without esophagitis Hyponatremia Mixed hyperlipidemia Pneumobilia Restless leg syndrome S/P total knee arthroplasty, right Stage 3a chronic kidney disease (CMS/HCC) Subdural hematoma (CMS/HCC) Type 2 diabetes mellitus without complication, without long-term current use of insulin (CMS/HCC) Past Medical History: Diagnosis Date Abnormal ECG Arrhythmia Atrial fibrillation (CMS/HCC) Heart valve disease Hypertension Sleep apnea Family History Problem Relation Name Age of Onset Cancer Mother Heart attack Other Social History Tobacco Use Smoking status: Former Types: Cigarettes Smokeless tobacco: Never Substance Use Topics Alcohol use: Not Currently Allergies Allergen Reactions Iodine Anaphylaxis Penicillins Hives Shellfish Containing Products Other Sulfa (Sulfonamide Antibiotics) Rash Review of Systems Constitutional: Negative for chills, fever and malaise/fatigue. Cardiovascular: Negative for chest pain, dyspnea on exertion, irregular heartbeat, leg swelling, near-syncope, orthopnea, palpitations, paroxysmal nocturnal dyspnea and syncope. Hematologic/Lymphatic: Negative for bleeding problem. Does not bruise/bleed easily. OBJECTIVE Visit Vitals BP 143/75 (BP Location: Left arm, Patient Position: Sitting) Pulse 70 Ht 1.829 m (6') Wt 109 kg (241 lb) SpO2 97% BMI 32.69 kg/m??? Smoking Status Former BSA 2.35 m??? Medications: Current Outpatient Medications: amLODIPine (Norvasc) 10 mg tablet, Take 1 tablet by mouth in the morning., Disp: , Rfl: aspirin 81 mg EC tablet, Take 1 tablet every day by oral route., Disp: , Rfl: atorvastatin (Lipitor) 10 mg tablet, Take 1 tablet by mouth in the evening., Disp: , Rfl: benazepril (Lotensin) 20 mg tablet, Take 1 tablet by mouth in the morning., Disp: , Rfl: carvedilol (Coreg) 6.25 mg tablet, Take 1 tablet by mouth in the morning and at bedtime., Disp: , Rfl: clonazePAM (KlonoPIN) 1 mg tablet, , Disp: , Rfl: omeprazole (PriLOSEC) [address] capsule, Take 1 capsule every day by oral route for 90 days., Disp: , Rfl: propafenone (Rythmol) 150 mg tablet, Take 1 tablet (150 mg) by mouth in the morning, at noon, and at bedtime., Disp: 270 tablet, Rfl: 2 traZODone (Desyrel) 50 mg tablet, Take 1 tablet by mouth at bedtime., Disp: , Rfl: warfarin (Coumadin) 7.5 mg tablet, TAKE 1 TABLET BY MOUTH ON TUESDAY OR DIRECTED, Disp: , Rfl: Physical Exam Constitutional: Appearance: Normal appearance. HENT: Head: Normocephalic and atraumatic. Right Ear: External ear normal. Left Ear: External ear normal. Eyes: Extraocular Movements: Extraocular movements intact. Pupils: Pupils are equal, round, and reactive to light. Neck: Vascular: No carotid bruit. Comments: No visible JVD Cardiovascular: Rate and Rhythm: Normal rate and regular rhythm. Pulses: Normal pulses. Heart sounds: Normal heart sounds. Pulmonary: Effort: Pulmonary effort is normal. Breath sounds: Normal breath sounds. Abdominal: General: Bowel sounds are normal. Palpations: Abdomen is soft. Musculoskeletal: General: Normal range of motion. Cervical back: Neck supple. Right lower leg: No edema. Left lower leg: No edema. Skin: General: Skin is warm and dry. Neurological: General: No focal deficit present. Mental Status: He is alert and oriented to person, place, and time. Psychiatric: Mood and Affect: Mood normal. Behavior: Behavior normal. Thought Content: Thought content normal. Judgment: Judgment normal. Labs: 2023 Hgb 13.7, hct41.9, WBC 8, plt 169 Cr 1.23, BUN 12, K 4.1, Na 139, eGFR 57, ALT 26, AST 20 Legacy Encounter on 06/13/2019 Component Date Value Ref Range Status Ventricular Rate 06/13/2019 54 BPM Final Atrial Rate 06/13/2019 54 BPM Final WV Interval 06/13/2019 212 ms Final QRS DURATION 06/13/2019 102 ms Final QT Interval 06/13/2019 430 ms Final QTC CALCULATION(BEZET) 06/13/2019 407 ms Final P Mcdermott 06/13/2019 42 degrees Final R-Mcdermott 06/13/2019 -17 degrees Final T Wave Mcdermott 06/13/2019 28 degrees Final Diagnosis 06/13/2019 Final Value:Sinu (more content not included)... [facility] 02-28-2023 Note Patient here for 1 y ear follow up mitral valve disorder, afib, and hypertension. He had a bad fall on 2023 and ended up with brain bleed and [facility] He has since resumed warfarin and is doing very well. Denies chest pain, SOB, lightheadedness and syncope. Review of Systems Cardiovascular: Positive for leg swelling (resolves by morning). Hematologic/Lymphatic: Bruises/bleeds easily. Musculoskeletal: Positive for arthritis, back pain and myalgias. All other systems reviewed and are negative. [facility] 01-22-2023 Evaluation note Encounter Date Diagnosis Assessment Notes Dec, Subarachnoid hemorrhage (ICD-10 - I60.9) [facility] Other 04-12-2023 Evaluation note* Encounter Date Diagnosis Assessment Notes Treatment Notes Treatment Clinical Notes Dec, Essential hypertension (ICD-10 - I10) This patient is instructed to consume a healthy, low-fat, low-salt diet. They are also encouraged to continue exercise to achieve/maintain a normal BMI. Dec, Controlled type 2 diabetes mellitus with hyperglycemia (ICD-10 - E11.65) This patient is following a comprehensive diabetic treatment plan. They are checking their feet daily for calluses and nonhealing ulcers. They are being seen for yearly dilated eye examinations. Goals: SBP less than 130, LDL less than 100, FBS less than 140, AC and A1C less than 7%. They are checking their BS daily, will which are reviewed at the office visit. Dec, Stage 3a chronic kidney disease (CKD) (ICD-10 - N18.31) The patient is instructed on adequate control of hypertension and diabetes, if appropriate. They are also educated on the associated risks of NSAIDs and PPI use with kidney disease. They were instructed on adequate fluid balance and to avoid dehydration. Dec, Paroxysmal atrial fibrillation (ICD-10 - I48.0) This patient is in NSR or rate controlled. This patient is anticoagulated to prevent thromboembolic events. They are maintaining regular scheduled appts with their control analyst. Dec, Obstructive sleep apnea (ICD-10 - G47.33) Auto CPAP 10-15, Facial Mask This patient is aware of the benefits associated with CUBA: With continued use, the patient reduces the risk for NE, CVA, HTN, cardiac dysrhythmias and sudden cardiac deaths.The patient is also aware of the association between CUBA and morning headaches, daytime somnolence, fatigue and obesity, which also has been improved with continued use.The patient is compliant with treatment, wearing the equipment every night for greater than 4 hours.The patient is instructed to continue use of the CPAP for CUBA treatment. Dec, Gastro-esophageal reflux disease with esophagitis, without bleeding (ICD-10 - K21.00) Diet instructions: Smaller portions, avoid eating and laying flat, avoid eating or drinking prior to bedtime. Weight loss. Dec, Non-rheumatic mitral regurgitation (ICD-10 - I34.0) Asymptomtic, control BP and maintain euvolemic state Dec, Hyperlipidemia, mixed (ICD-10 - E78.2) Diet and exercise with continued statin therapy. Dec, Diastolic dysfunction with chronic heart failure (ICD-10 - I50.32) Control BP, low salt diet and keep active. Dec, Hepatic steatosis (ICD-10 - K76.0) Low fat diet, exercise and weight loss. Improved control of BS [facility] Other 02-15-2023 Evaluation note* Encounter Date Diagnosis Assessment Notes Treatment Notes Treatment Clinical Notes Oct, Cholecystitis (ICD-1 0 - K81.9) [facility] Other 02-14-2023 NotePatient Education Material [facility] END[facility]COPY [facility] FOLLOW UP CARE ? For biopsy results, please call your doctor?s office in six (6) business days. BECAUSE YOU WERE MEDICATED ? DO NOT drive, operate machinery, make important decisions, sign legal documents, or perform activities that require coordination or balance for 24 hours. ? Rest for the remainder of the day. You may resume normal activity tomorrow, unless your doctor told you otherwise. ? For your safety, have a responsible adult with you for the remainder of the day and overnight. HOME MEDICATIONS ? Continue taking your home medications as directed. ? Certain medicines may increase your risk of bleeding and should only be resumed as directed by your doctor. These include Motrin, Advil, Aleve, all NSAIDs, Aspirin, Plavix, Coumadin, and other blood thinners/anticoagulants. DIET ? Drink plenty of fluids today, unless your doctor told you otherwise. ? Do not drink any kind of alcohol, including beer or wine. ? Resume your diet as instructed. GO TO THE EMERGENCY ROOM IF YOU NOTICE ANY OF THE FOLLOWING: These could be signs of an infection or a complication. ? Fever greater than 101 degrees ? Persistent vomiting ? Severe abdominal pain, other than gas cramps ? Chest pain and/or shortness of breath ? Any bleeding and/or black tarry stools ? For a life-threatening event ? CALL 911 Any questions regarding the above instruction, please call your physician?s office at: THANK YOU FOR CHOOSING [facility] FOR YOUR PROCEDURE! [phone] This information is not intended to replace advice given to you by your health care provider. Make sure you discuss any questions you have with your health care provider. ExitCare? Patient Information ?2016 [employer]. Custom Education added 09/2018[place]02-14-2023 NoteNursing Discharge Summary Entered On: 11/09/2022 8:44 EST Performed On: 11/09/2022 8:43 EST by Sariah Schreiber RN, DC Information Discharged to : Home Mode of Discharge : Ambulatory Discharge Transportation : Private vehicle Reg VTE Warfarin at Discharge : No Sariah Schreiber RN 11/09/2022 8:43 EST Education Instructions given to : Patient TeachBack Methodology : TeachBack, Explanation, Printed Material Barriers to Learning : None evident Educational concerns documented : N/A no barriers noted Sariah Schreiber RN R 11/09/2022 8:43 EST Post-Hospital Education Adult Grid Activity Expectations : Verbalizes understanding Diagnostic Results : Verbalizes understanding Importance of Follow-Up Visits : Verbalizes understanding Pain Management : Verbalizes understanding Postoperative Instructions : Verbalizes understanding When to Call Health Care Provider : Verbalizes understanding Sariah Schreiber RN R 11/09/2022 8:43 EST Health Maintenance Education Adult Grid Diet/Nutrition : Verbalizes understanding Sariah Schreiber RN R 11/09/2022 8:43 EST Safety Education Adult Grid Safety, Fall : Verbalizes understanding Sariah Schreiber RN R 11/09/2022 8:43 EST Additional Session Learner/s Present : Daughter Sariah Schreiber RN [facility] Encounter Date Diagnosis Assessment Notes Treatment Notes Treatment Clinical Notes Sep, Controlled type 2 diabetes mellitus with hyperglycemia (ICD-10 - E11.65) This patient is following a comprehensive diabetic treatment plan. They are checking their feet daily for calluses and nonhealing ulcers. They are being seen for yearly dilated eye examinations. Goals: SBP less than 130, LDL less than 100, FBS less than 140, AC and A1C less than 7%. They are checking their BS daily, will which are reviewed at the office visit. Sep, Essential hypertension (ICD-10 - I10) This patient is instructed to consume a healthy, low-fat, low-salt diet. They are also encouraged to continue exercise to achieve/maintain a normal BMI. Sep, Stage 3a chronic kidney disease (CKD) (ICD-10 - N18.31) The patient is instructed on adequate control of hypertension and diabetes, if appropriate. They are also educated on the associated risks of NSAIDs and PPI use with kidney disease. They were instructed on adequate fluid balance and to avoid dehydration. Sep, Paroxysmal atrial fibrillation (ICD-10 - I48.0) Rhythm control w/ AC to prevent thromboembolic events. Sep, Hyperlipidemia, mixe d (ICD-10 - E78.2) Diet and exercise with continued statin therapy. Sep, Hepatic steatosis (ICD-10 - K76.0) Low fat diet, exercise and 10% total body weight loss. Control diabetes and hyperlipidemia Sep, Diastolic dysfunctio n with chronic heart failure (ICD-10 - I50.32) Sep, Obstructive sleep apnea (ICD-10 - G47.33) Auto CPAP 10-15, Facial Mask This patient is aware of the benefits associated with CUBA: With continued use, the patient reduces the risk for NE, CVA, HTN, cardiac dysrhythmias and sudden cardiac deaths. The patient is also aware of the association between CUBA and morning headaches, daytime somnolence, fatigue and obesity, which also has been improved with continued use. The patient is compliant with treatment, wearing the equipment every night for greater than 4 hours. The patient is instructed to continue use of the CPAP for CUBA treatment. Sep, Gastro-esophageal reflux disease with esophagitis, without bleeding (ICD-10 - K21.00) Diet instructions: Smaller portions, avoid eating and laying flat, avoid eating or drinking prior to bedtime. Weight loss. Sep, Anticoagulation monitoring by pharmacist (ICD-10 - Z79.01) INR being monitored, no bleeding complications noted [facility] Other [id number] History of Present illness Narrative* Luis Wang LPN - 07/08/2022 11:20 AM EDT Ortho Nurse - Established Patient Intake Room#: 2 4 month Right TKA, some pain of 1-2 when weed eating, going great Date: 07/08/2022 11:51 AM Patient: Tito Goncalves MR#: [id number] : 1945 Age: 77 y.o. Referring Physician: Self, Self Insurance: Payor: MEDICARE / Plan: MEDICARE A AND B / Product Type: *No Product type* / Chief Complaint Patient presents with Right Knee - Post Op Visit Visit Vitals Ht 1.829 m (6') Wt 111.1 kg (245 lb) BMI 33.23 kg/m Pain Presence of Pain: complains of pain/discomfort Pain Location: knee, right Select Pain Scale: DVPRS (Defense and Veterans Pain Rating Scale) (Adult- Cognitively Intact) Pain Location: knee, right Select Pain Scale: DVPRS (Defense and Veterans Pain Rating Scale) (Adult- Cognitively Intact) Recent Labs No results found for: CRP No results found for: SEDRATE Lab Results Component Value Date WBC 9.5 03/16/2022 HGB 11.7 (L) 03/16/2022 HCT 33.9 (L) 03/16/2022 PLATELET 154 03/16/2022 MCV 87.2 03/16/2022 History Past Medical History: Diagnosis Date Skin cancer 2013 2017,2013 Arrhythmia afid not since 2018 Diabetes mellitus Essential hypertension, benign Hyperlipidemia OA (osteoarthritis) of knee bilat CUBA (obstructive sleep apnea) RA (rheumatoid arthritis) Past Surgical History: Procedure Laterality Date ARTHROPLASTY KNEE TOTAL Right 03/15/2022 Laterality: Right; Surgeon: Pastor Bedoya MD; Location: [facility] ARTHROPLASTY KNEE Left 02/22/2017 ARTHROPLASTY KNEE TOTAL Left 06/23/2015 CHOLECYSTECTOMY 2012 Family History: His family history includes Breast Cancer in his mother; Diabetes in his father; Heart Disease - Other in his father; Hypertension in his father and mother. Social History: His reports that he quit smoking about 39 years ago. His smoking use included cigarettes. He quit smokeless tobacco use about 19 years ago. He reports that he does not drink alcohol and does not use drugs. Outpatient Medications Prior to Visit Medication Sig Dispense Refill amLODIPine 10 MG Tab tablet Take 10 mg by mouth. aspirin EC [address] Take 81 mg by mouth daily. atorvastatin 10 MG Tab tablet Take 10 mg by mouth every evening. benazepril 20 MG Tab Take 20 mg by mouth daily. carveDILOL 6.25 MG tablet Take 6.25 mg by mouth 2 times daily. clindamycin 150 MG capsule Take 4 capsules 1 hour before the procedure 8 capsule 1 clonazePAM 1 MG tablet Take 1 mg by mouth every evening. Multiple Vitamins-Minerals (PRESERVISION AREDS PO) Take by mouth. omeprazole [address] capsule Take 20 mg by mouth daily every morning. propafenone 150 MG tablet Take by mouth every 8 hours. traZODone 50 MG tablet Take 50 mg by mouth every evening at 6 PM. warfarin 5 MG tablet 5 mg. acetaminophen 325 MG tablet Take 2 tablets by mouth every 4 hours as needed for Mild Pain. 50 tablet 1 docusate 100 MG capsule Take 1 capsule by mouth 2 times daily. 60 capsule 0 oxyCODONE 5 MG tablet Take one to two tabs every 4-6 hours as needed for severe pain. Wean as tolerated 30 tablet 0 therapeutic multivitamin-minerals tablet Take 1 tablet by mouth at bedtime. 30 tablet 0 ferrous sulfate 325 (65 Fe) MG tablet Take 325 mg by mouth daily. No facility-administered medications prior to visit. Current Outpatient Medications: amLODIPine 10 MG Tab tablet, Take 10 mg by mouth., Disp: , Rfl: aspirin EC [address], Take 81 mg by mouth daily., Disp: , Rfl: atorvastatin 10 MG Tab tablet, Take 10 mg by mouth every evening., Disp: , Rfl: benazepril 20 MG Tab, Take 20 mg by mouth daily., Disp: , Rfl: carveDILOL 6.25 MG tablet, Take 6.25 mg by mouth 2 times daily., Disp: , Rfl: clindamycin 150 MG capsule, Take 4 capsules 1 hour before the procedure, Disp: 8 capsule, Rfl: 1 clonazePAM 1 MG tablet, Take 1 mg by mouth every evening., Disp: , Rfl: Multiple Vitamins-Minerals (PRESERVISION AREDS PO), Take by mouth., Disp: , Rfl: omeprazole [address] capsule, Take 20 mg by mouth daily every morning., Disp: , Rfl: propafenone 150 MG tablet, Take by mouth every 8 hours., Disp: , Rfl: traZODone 50 MG tablet, Take 50 mg by mouth every evening at 6 PM., Disp: , Rfl: warfarin 5 MG tablet, 5 mg., Disp: , Rfl: acetaminophen 325 MG tablet, Take 2 tablets by mouth every 4 hours as needed for Mild Pain., Disp: 50 tablet, Rfl: 1 docusate 100 MG capsule, Take 1 capsule by mouth 2 times daily., Disp: 60 capsule, Rfl: 0 oxyCODONE 5 MG tablet, Take one to two tabs every 4-6 hours as needed for severe pain. Wean as tolerated, Disp: 30 tablet, Rfl: 0 therapeutic multivitamin-minerals tablet, Take 1 tablet by mouth at bedtime., Disp: 30 tablet, Rfl:0 Allergies: He is allergic to iodine, penicillin g, shellfish allergy, and sulfa antibiotics. * Pastor Bedoya MD - 07/08/2022 11:20 AM EDT HPI: Tito is here today for evaluation of his operative knee. He is status post right total knee arthroplasty. He is about 4 months out from surgery and reports that he is doing well and is pleasedwith the outcome of the intervention. His pain is a 1/10 upon exam today. He has no additional questions or concerns at this time. PHYSICAL EXAM: The bilateral lower extremities were evaluated. The operative lower extremity is soft, nontender, full and supple motion. No pain, no impingement. No instability. Incision is well healed. His ROM is 5-120 degrees and a stable examination to varus and valgus stress with normal balance throughout the arc of motion. Tight hamstrings. The contralateral extremity has full motion, normalstability, no tenderness. Both extremities have normal neurovascular status. DIAGNOSTIC STUDIES/INTERPRETATION: Plain film radiographs reviewed. Three views of the operative knee show a right total knee arthroplasty in good position and alignment. No evidence of prosthetic implant loosening or migration. Long standing films demonstrate neutral recreation of the mechanical axis through the operative leg. IMPRESSION: 1.) Stable status post right total knee arthroplasty, doing well. 2.) Hamstrings tendonitis, right. PLAN: I reviewed my findings with patient. Overall, I am pleased with the outcome of intervention. He has made an excellent recovery thus far. We discussed the stages of healing along with what symptoms that can be expected at current stage. He understands he is at the 50% martir of total recovery. We also discussed the benefits of performing a variety of exercises at home, with a physical therapist or local gym. I personally demonstrated exercises as well as the benefits of a foam roller to stretch the hamstrings to obtain extension goal of 0. He understands and will work on this dann. He understands the optimal window of time for gaining full extension will be closing soon. The kneeling training protocol was also given today. I expect continued improvement in strength and mobility moving forward. I recommend followup at one year for repeat clinical and radiographic examination or soonerif any new symptoms develop. He will call with any questions or concerns in the meantime. I have reviewed the findings of the clinical client support analyst and agree with their assessment. Ortho Nurse - Established Patient Intake Room#: 2 4 month Right TKA, some pain of 1-2 when weed eating, going great Date: 07/08/2022 11:51 AM Patient: Tito Goncalves MR#: [id number] : 1945 Age: 77 y.o. Referring Physician: Self, Self Insurance: Payor: MEDICARE / Plan: MEDICARE A AND B / Product Type: *No Product type* / Chief Complaint Patient presents with Right Knee - Post Op Visit Visit Vitals Ht 1.829 m (6') Wt 111.1 kg (245 lb) BMI 33.23 kg/m Pain Presence of Pain: complains of pain/discomfort Pain Location: knee, right Select Pain Scale: DVPRS (Defense and Veterans Pain Rating Scale) (Adult- Cognitively Intact) Pain Location: knee, right Select Pain Scale: DVPRS (Defense and Veterans Pain Rating Scale) (Adult- Cognitively Intact) Recent Labs No results found for: CRP No results found for: SEDRATE Lab Results Component Value Date WBC 9.5 03/16/2022 HGB 11.7 (L) 03/16/2022 HCT 33.9 (L) 03/16/2022 PLATELET 154 03/16/2022 MCV 87.2 03/16/2022 History Past Medical History: Diagnosis Date Skin cancer 2013 2017,2013 Arrhythmia afid not since 2018 Diabetes mellitus Essential hypertension, benign Hyperlipidemia OA (osteoarthritis) of knee bilat CUBA (obstructive sleep apnea) RA (rheumatoid arthritis) Past Surgical History: Procedure Laterality Date ARTHROPLASTY KNEE TOTAL Right 03/15/2022 Laterality: Right; Surgeon: Pastor Bedoya MD; Location: [facility] ARTHROPLASTY KNEE Left 02/22/2017 ARTHROPLASTY KNEE TOTAL Left 06/23/2015 CHOLECYSTECTOMY 2012 Family History: His family history includes Breast Cancer in his mother; Diabetes in his father; Heart Disease - Other in his father; Hypertension in his father and mother. Social History: His reports that he quit smoking about 39 years ago. His smoking use included cigarettes. He quit smokeless tobacco use about 19 years ago. He reports that he does not drink alcohol and does not use drugs. Outpatient Medications Prior to Visit Medication Sig Dispense Refill amLODIPine 10 MG Tab tablet Take 10 mg by mouth. aspirin EC [address] Take 81 mg by mouth daily. atorvastatin 10 MG Tab tablet Take 10 mg by mouth every evening. benazepril 20 MG Tab Take 20 mg by mouth daily. carveDILOL 6.25 MG tablet Take 6.25 mg by mouth 2 times daily. clindamycin 150 MG capsule Take 4 capsules 1 hour before the procedure 8 capsule 1 clonazePAM 1 MG tablet Take 1 mg by mouth every evening. Multiple Vitamins-Minerals (PRESERVISION AREDS PO) Take by mouth. omeprazole [address] capsule Take 20 mg by mouth daily every morning. propafenone 150 MG tablet Take by mouth every 8 hours. traZODone 50 MG tablet Take 50 mg by mouth every evening at 6 PM. warfarin 5 MG tablet 5 mg. acetaminophen 325 MG tablet Take 2 tablets by mouth every 4 hours as needed for Mild Pain. 50 tablet 1 docusate 100 MG capsule Take 1 capsule by mouth 2 times daily. 60 capsule 0 oxyCODONE 5 MG tablet Take one to two tabs every 4-6 hours as needed for severe pain. Wean as tolerated 30 tablet 0 therapeutic multivitamin-minerals tablet Take 1 tablet by mouth at bedtime. 30 tablet 0 ferrous sulfate 325 (65 Fe) MG tablet Take 325 mg by mouth daily. No facility-administered medications prior to visit. Current Outpatient Medications: amLODIPine 10 MG Tab tablet, Take 10 mg by mouth., Disp: , Rfl: aspirin EC [address], Take 81 mg by mouth daily., Disp: , Rfl: atorvastatin 10 MG Tab tablet, Take 10 mg by mouth every evening., Disp: , Rfl: benazepril 20 MG Tab, Take 20 mg by mouth daily., Disp: , Rfl: carveDILOL 6.25 MG tablet, Take 6.25 mg by mouth 2 times daily., Disp: , Rfl: clindamycin 150 MG capsule, Take 4 capsules 1 hour before the procedure, Disp: 8 capsule, Rfl: 1 clonazePAM 1 MG tablet, Take 1 mg by mouth every evening., Disp: , Rfl: Multiple Vitamins-Minerals (PRESERVISION AREDS PO), Take by mouth., Disp: , Rfl: omeprazole [address] capsule, Take 20 mg by mouth daily every morning., Disp: , Rfl: propafenone 150 MG tablet, Take by mouth every 8 hours., Disp: , Rfl: traZODone 50 MG tablet, Take 50 mg by mouth every evening at 6 PM., Disp: , Rfl: warfarin 5 MG tablet, 5 mg., Disp: , Rfl: acetaminophen 325 MG tablet, Take 2 tablets by mouth every 4 hours as needed for Mild Pain., Disp: 50 tablet, Rfl: 1 docusate 100 MG capsule, Take 1 capsule by mouth 2 times daily., Disp: 60 capsule, Rfl: 0 oxyCODONE 5 MG tablet, Take one to two tabs every 4-6 hours as needed for severe pain. Wean as tolerated, Disp: 30 tablet, Rfl: 0 therapeutic multivitamin-minerals tablet, Take 1 tablet by mouth at bedtime., Disp: 30 tablet, Rfl:0 Allergies: He is allergic to iodine, penicillin g, shellfish allergy, and sulfa antibiotics. documented in this [facility] Hospital Discharge instructions Patient Education 05/03/2022 08:55:03 Benign Prostatic Hyperplasia Benign Prostatic Hyperplasia Benign prostatic hyperplasia (BPH) is an enlarged prostate gland that is caused by the normal agingprocess and not by cancer. The prostate is a walnut-sized gland that is involved in the production of semen. It is located in front of the rectum and below the bladder. The bladder stores urine and the urethra is the tube that carries the urine out of the body. The prostate may get bigger as a man gets older. An enlarged prostate can press on the urethra. This can make it harder to pass urine. The build-up of urine in the bladder can cause infection. Back pressure and infection may progress to bladder damage and kidney (renal) failure. What are the causes? This condition is part of a normal aging process. However, not all men develop problems from this condition. If the prostate enlarges away from the urethra, urine flow will not be blocked. If it enlarges toward the urethra and compresses it, there will be problems passing urine. What increases the risk? This condition is more likely to develop in men over the age of 50 years. What are the signs or symptoms? Symptoms of this condition include: Getting up often during the night to urinate. Needing to urinate frequently during the day. Difficulty starting urine flow. Decrease in size and strength of your urine stream. Leaking (dribbling) after urinating. Inability to pass urine. This needs immediate treatment. Inability to completely empty your bladder. Pain when you pass urine. This is more common if there is also an infection. Urinary tract infection (UTI). How is this diagnosed? This condition is diagnosed based on your medical history, a physical exam, and your symptoms. Tests will also be done, such as: A post-void bladder scan. This measures any amount of urine that may remain in your bladder after you finish urinating. A digital rectal exam. In a rectal exam, your health care provider checks your prostate by putting a lubricated, gloved finger into your rectum to feel the back of your prostate gland. This exam detects the size of your gland and any abnormal lumps or growths. An exam of your urine (urinalysis). A prostate specific antigen (PSA) screening. This is a blood test used to screen for prostate cancer. An ultrasound. This test uses sound waves to electronically produce a picture of your prostate gland. Your health care provider may refer you to a specialist in kidney and prostate diseases (urologist). How is this treated? Once symptoms begin, your health care provider will monitor your condition (active surveillance or watchful waiting). Treatment for this condition will depend on the severity of your condition. Treatment may include: Observation and yearly exams. This may be the only treatment needed if your condition and symptoms are mild. Medicines to relieve your symptoms, including: ?Medicines to shrink the prostate. ?Medicines to relax the muscle of the prostate. Surgery in severe cases. Surgery may include: ?Prostatectomy. In this procedure, the prostate tissue is removed completely through an open incision or with a laparoscope or robotics. ?Transurethral resection of the prostate (TURP). In this procedure, a tool is inserted through the opening at the tip of the penis (urethra). It is used to cut away tissue of the inner core of the prostate. The pieces are removed through the same opening of the penis. This removes the blockage. ?Transurethral incision (TUIP). In this procedure, small cuts are made in the prostate. This lessens the prostate's pressure on the urethra. ?Transurethral microwave thermotherapy (TUMT). This procedure uses microwaves to create heat. The heat destroys and removes a small amount of prostate tissue. ?Transurethral needle ablation (TUNA). This procedure uses radio frequencies to destroy and remove a small amount of prostate tissue. ?Interstitial laser coagulation (ILC). This procedure uses a laser to destroy and remove a small amount of prostate tissue. ?Transurethral electrovaporization (TUVP). This procedure uses electrodes to destroy and remove a small amount of prostate tissue. ?Prostatic urethral lift. This procedure inserts an implant to push the lobes of the prostate away from the urethra. Follow these instructions at home: Take [id number] and prescription medicines only as told by your health care provider. Monitor your symptoms for any changes. Contact your health care provider with any changes. Avoid drinking large amounts of liquid before going to bed or out in public. Avoid or reduce how much caffeine or alcohol you drink. Give yourself time when you urinate. Keep all follow-up visits as told by your health care provider. This is important. Contact a health care provider if: You have unexplained back pain. Your symptoms do not get better with treatment. You develop side effects from the medicine you are taking. Your urine becomes very dark or has a bad smell. Your lower abdomen becomes distended and you have trouble passing your urine. Get help right away if: You have a fever or chills. You suddenly cannot urinate. You feel lightheaded, or very dizzy, or you faint. There are large amounts of blood or clots in the urine. Your urinary problems become hard to manage. You develop moderate to severe low back or flank pain. The flank is the side of your body between the ribs and the hip. These symptoms may represent a serious problem that is an emergency. Do not wait to see if the symptoms will go away. Get medical help right away. Call your local emergency services (911 in the [place] Do not drive yourself to the hospital. Summary Benign prostatic hyperplasia (BPH) is an enlarged prostate that is caused by the normal aging process and not by cancer. An enlarged prostate can press on the urethra. This can make it hard to pass urine. This condition is part of a normal aging process and is more likely to develop in men over the age of 50 years. Get help right away if you suddenly cannot urinate. This information is not intended to replace advice given to you by your health care provider. Make sure you discuss any questions you have with your health care provider. Document Released: 09/12/2006 Document Revised: 08/07/2019 Document Reviewed: 10/17/2017 [employer] Patient Education 2020 [employer]. Follow Up Care 04/27/2021 11:05:10 With:GAGE UMANZOR, Mc Blackman, URL Address: [facility] [address], [place] [address] [phone] When: Unknown Comments:K[facility] 07-14-2022 History of Present illness Narrative* Shannen Tirso - 04/08/2022 10:00 AM EDT Ortho Nurse - Established Patient Intake Room#: 5 Date: 04/08/2022 9:50 AM Patient: Tito Goncalves MR#: [id number] : 1945 Age: 77 y.o. 3wk S/P R TKA Pt stated he is doing pretty good and states he has little pain when getting up in the morning and getting off the toilet, 0/10 on the pain scale at today's visit. Pt was wearing his iván hose and using a cane at the time of visit. Referring Physician: Azul Rachel APRN-CNP Insurance: Payor: MEDICARE / Plan: MEDICARE A AND B / Product Type: *No Product type* / Chief Complaint Patient presents with Right Knee - Post Op Visit Visit Vitals Temp 96.9 F (36.1 C) (Temporal) Ht 1.829 m (6') Wt 111.1 kg (245 lb) BMI 33.23 kg/m Pain Recent Labs No results found for: CRP No results found for: SEDRATE Lab Results Component Value Date WBC 9.5 03/16/2022 HGB 11.7 (L) 03/16/2022 HCT 33.9 (L) 03/16/2022 PLATELET 154 03/16/2022 MCV 87.2 03/16/2022 History Past Medical History: Diagnosis Date Skin cancer 2013 2017,2013 Arrhythmia afid not since 2018 Diabetes mellitus Essential hypertension, benign Hyperlipidemia OA (osteoarthritis) of knee bilat CUBA (obstructive sleep apnea) RA (rheumatoid arthritis) Past Surgical History: Procedure Laterality Date ARTHROPLASTY KNEE TOTAL Right 03/15/2022 Laterality: Right; Surgeon: Pastor Bedoya MD; Location: [facility] ARTHROPLASTY KNEE Left 02/22/2017 ARTHROPLASTY KNEE TOTAL Left 06/23/2015 CHOLECYSTECTOMY 2012 Family History: His family history includes Breast Cancer in his mother; Diabetes in his father; Heart Disease - Other in his father; Hypertension in his father and mother. Social History: His reports that he quit smoking about 39 years ago. He quit smokeless tobacco use about 19 years ago. He reports that he does not drink alcohol and does not use drugs. Outpatient Medications Prior to Visit Medication Sig Dispense Refill acetaminophen 325 MG tablet Take 2 tablets by mouth every 4 hours as needed for Mild Pain. 50 tablet 1 amLODIPine 10 MG Tab tablet Take 10 mg by mouth. aspirin EC [address] Take 81 mg by mouth daily. atorvastatin 10 MG Tab tablet Take 10 mg by mouth every evening. benazepril 20 MG Tab Take 20 mg by mouth daily. carveDILOL 6.25 MG tablet Take 6.25 mg by mouth 2 times daily. clonazePAM 1 MG tablet Take 1 mg by mouth every evening. docusate 100 MG capsule Take 1 capsule by mouth 2 times daily. 60 capsule 0 ferrous sulfate 325 (65 Fe) MG tablet Take 325 mg by mouth daily. Multiple Vitamins-Minerals (PRESERVISION AREDS PO) Take by mouth. omeprazole [address] capsule Take 20 mg by mouth daily every morning. propafenone 150 MG tablet Take by mouth every 8 hours. therapeutic multivitamin-minerals tablet Take 1 tablet by mouth at bedtime. 30 tablet 0 traZODone 50 MG tablet Take 50 mg by mouth every evening at 6 PM. warfarin 5 MG tablet 7 mg. Tuesday and Tuesday 7.5 mg, S,M,W,THUR,F 5 mg daily oxyCODONE 5 MG tablet Take one to two tabs every 4-6 hours as needed for severe pain. Wean as tolerated 30 tablet 0 No facility-administered medications prior to visit. Current Outpatient Medications: acetaminophen 325 MG tablet, Take 2 tablets by mouth every 4 hours as needed for Mild Pain., Disp: 50 tablet, Rfl: 1 amLODIPine 10 MG Tab tablet, Take 10 mg by mouth., Disp: , Rfl: aspirin EC [address], Take 81 mg by mouth daily., Disp: , Rfl: atorvastatin 10 MG Tab tablet, Take 10 mg by mouth every evening., Disp: , Rfl: benazepril 20 MG Tab, Take 20 mg by mouth daily., Disp: , Rfl: carveDILOL 6.25 MG tablet, Take 6.25 mg by mouth 2 times daily., Disp: , Rfl: clonazePAM 1 MG tablet, Take 1 mg by mouth every evening., Disp: , Rfl: docusate 100 MG capsule, Take 1 capsule by mouth 2 times daily., Disp: 60 capsule, Rfl: 0 ferrous sulfate 325 (65 Fe) MG tablet, Take 325 mg by mouth daily., Disp: , Rfl: Multiple Vitamins-Minerals (PRESERVISION AREDS PO), Take by mouth., Disp: , Rfl: omeprazole [address] capsule, Take 20 mg by mouth daily every morning., Disp: , Rfl: propafenone 150 MG tablet, Take by mouth every 8 hours., Disp: , Rfl: therapeutic multivitamin-minerals tablet, Take 1 tablet by mouth at bedtime., Disp: 30 tablet, Rfl:0 traZODone 50 MG tablet, Take 50 mg by mouth every evening at 6 PM., Disp: , Rfl: warfarin 5 MG tablet, 7 mg. Tuesday and Tuesday 7.5 mg, S,M,W,THUR,F 5 mg daily, Disp: , Rfl: oxyCODONE 5 MG tablet, Take one to two tabs every 4-6 hours as needed for severe pain. Wean as tolerated, Disp: 30 tablet, Rfl: 0 Allergies: He is allergic to iodine, penicillin g, shellfish allergy, and sulfa antibiotics. * Azul Rachel APRN-AIRCRAFT STRUCTURE MECHANIC - 04/08/2022 10:00 AM EDT HPI: Tito Goncalves is 3 weeks s/p right TKA. He is happy with his recovery to date and could not be happier with the outcomes of the operation. He is participating in PT in the home setting, using asa for DVT prophylaxis along with compression stockings. He is using tylenol for pain control.. PHYSICAL EXAM: Today on examination he is Temp 96.9 F (36.1 C) (Temporal) Ht 1.829 m (6') Wt 111.1 kg (245 lb) BMI 33.23 kg/m Smoking Status Former Smoker Body mass index is 33.23 kg/m . Pain is reported as0/10. Incision is healing well without erythema, drainage, induration or evidence of dehiscence. There is mild global knee swelling. Calves are soft and non tender bilaterally with negative Homans sign. Distal neurovascular exam is intact. ROM is reported as 12-115 in physical therapy, today it is found to be 10-115. The examination is stable to varus and valgus stress. DIAGNOSTIC STUDIES/INTERPRETATION: X-rays were reviewed today and reveal Cemented total knee arthroplasty in good position and alignment unchanged from the immediate postop films. Assessment/Plan: 3 weeks postop right TKA. Continue DVT prophylaxis as prescribed. Continue physical therapy- if ROM goals not obtained the patient is to call the office for a followup appointment otherwise plan for: Follow up [address] Bedoya for clinical and radiological evaluation unless an earlier need should arise. Dental prophylaxis was prescribed and instructions given. All questions and concerns were addressed at this appointment and the patient expressed understanding. I have demonstrated exercises to work on extension today. I have also suggested a foam roller. All pertinent portions of the clinical client support analyst documentation was reviewed and agree. EDYTA Ayala I have reviewed the findings of the clinical client support analyst and agree with their assessment. EDYTA Ayala Ortho Nurse - Established Patient Intake Room#: 5 Date: 04/08/2022 9:50 AM Patient: Tito Goncalves MR#: [id number] : 1945 Age: 77 y.o. 3wk S/P R TKA Pt stated he is doing pretty good and states he has little pain when getting up in the morning and getting off the toilet, 0/10 on the pain scale at today's visit. Pt was wearing his iván hose and using a cane at the time of visit. Referring Physician: Azul Rachel APRN-CNP Insurance: Payor: MEDICARE / Plan: MEDICARE A AND B / Product Type: *No Product type* / Chief Complaint Patient presents with Right Knee - Post Op Visit Visit Vitals Temp 96.9 F (36.1 C) (Temporal) Ht 1.829 m (6') Wt 111.1 kg (245 lb) BMI 33.23 kg/m Pain Recent Labs No results found for: CRP No results found for: SEDRATE Lab Results Component Value Date WBC 9.5 03/16/2022 HGB 11.7 (L) 03/16/2022 HCT 33.9 (L) 03/16/2022 PLATELET 154 03/16/2022 MCV 87.2 03/16/2022 History Past Medical History: Diagnosis Date Skin cancer 2013 2017,2013 Arrhythmia afid not since 2018 Diabetes mellitus Essential hypertension, benign Hyperlipidemia OA (osteoarthritis) of knee bilat CUBA (obstructive sleep apnea) RA (rheumatoid arthritis) Past Surgical History: Procedure Laterality Date ARTHROPLASTY KNEE TOTAL Right 03/15/2022 Laterality: Right; Surgeon: Pastor Bedoya MD; Location: [facility] ARTHROPLASTY KNEE Left 02/22/2017 ARTHROPLASTY KNEE TOTAL Left 06/23/2015 CHOLECYSTECTOMY 2013 Family History: His family history includes Breast Cancer in his mother; Diabetes in his father; Heart Disease - Other in his father; Hypertension in his father and mother. Social History: His reports that he quit smoking about 39 years ago. He quit smokeless tobacco use about 19 years ago. He reports that he does not drink alcohol and does not use drugs. Outpatient Medications Prior to Visit Medication Sig Dispense Refill acetaminophen 325 MG tablet Take 2 tablets by mouth every 4 hours as needed for Mild Pain. 50 tablet 1 amLODIPine 10 MG Tab tablet Take 10 mg by mouth. aspirin EC [address] Take 81 mg by mouth daily. atorvastatin 10 MG Tab tablet Take 10 mg by mouth every evening. benazepril 20 MG Tab Take 20 mg by mouth daily. carveDILOL 6.25 MG tablet Take 6.25 mg by mouth 2 times daily. clonazePAM 1 MG tablet Take 1 mg by mouth every evening. docusate 100 MG capsule Take 1 capsule by mouth 2 times daily. 60 capsule 0 ferrous sulfate 325 (65 Fe) MG tablet Take 325 mg by mouth daily. Multiple Vitamins-Minerals (PRESERVISION AREDS PO) Take by mouth. omeprazole [address] capsule Take 20 mg by mouth daily every morning. propafenone 150 MG tablet Take by mouth every 8 hours. therapeutic multivitamin-minerals tablet Take 1 tablet by mouth at bedtime. 30 tablet 0 traZODone 50 MG tablet Take 50 mg by mouth every evening at 6 PM. warfarin 5 MG tablet 7 mg. Tuesday and Tuesday 7.5 mg, S,M,W,THUR,F 5 mg daily oxyCODONE 5 MG tablet Take one to two tabs every 4-6 hours as needed for severe pain. Wean as tolerated 30 tablet 0 No facility-administered medications prior to visit. Current Outpatient Medications: acetaminophen 325 MG tablet, Take 2 tablets by mouth every 4 hours as needed for Mild Pain., Disp: 50 tablet, Rfl: 1 amLODIPine 10 MG Tab tablet, Take 10 mg by mouth., Disp: , Rfl: aspirin EC [address], Take 81 mg by mouth daily., Disp: , Rfl: atorvastatin 10 MG Tab tablet, Take 10 mg by mouth every evening., Disp: , Rfl: benazepril 20 MG Tab, Take 20 mg by mouth daily., Disp: , Rfl: carveDILOL 6.25 MG tablet, Take 6.25 mg by mouth 2 times daily., Disp: , Rfl: clonazePAM 1 MG tablet, Take 1 mg by mouth every evening., Disp: , Rfl: docusate 100 MG capsule, Take 1 capsule by mouth 2 times daily., Disp: 60 capsule, Rfl: 0 ferrous sulfate 325 (65 Fe) MG tablet, Take 325 mg by mouth daily., Disp: , Rfl: Multiple Vitamins-Minerals (PRESERVISION AREDS PO), Take by mouth., Disp: , Rfl: omeprazole [address] capsule, Take 20 mg by mouth daily every morning., Disp: , Rfl: propafenone 150 MG tablet, Take by mouth every 8 hours., Disp: , Rfl: therapeutic multivitamin-minerals tablet, Take 1 tablet by mouth at bedtime., Disp: 30 tablet, Rfl:0 traZODone 50 MG tablet, Take 50 mg by mouth every evening at 6 PM., Disp: , Rfl: warfarin 5 MG tablet, 7 mg. Tuesday and Tuesday 7.5 mg, S,M,W,THUR,F 5 mg daily, Disp: , Rfl: oxyCODONE 5 MG tablet, Take one to two tabs every 4-6 hours as needed for severe pain. Wean as tolerated, Disp: 30 tablet, Rfl: 0 Allergies: He is allergic to iodine, penicillin g, shellfish allergy, and sulfa antibiotics. [facility] Miscellaneous Notes* Nursing Notes - Kirsten Crawford RN - 03/16/2022 3:01 PM EDT Discharge instructions gone over with pt and pt's daughter at this time by Regina GAVIN. Both, verbalize understanding and deny any further questions. Hemovac drain removed at this time, tip intact upon removal, pt tolerated well. * Nursing Notes - Dian Roberts RN - 03/16/2022 2:00 PM EDT Tito was just given bedside teaching on his On Q Ball and his daughter is present. The methods used for this teaching included discussion, hands on demonstrations, and material handouts. His teaching begin with the purpose of the On Q Ball and it's use. All parts of the Ball were discussed and the working of the dial. Tito was able to adjust his dial and flow rate. The rate is currently set at 2ml/hr and he is aware he can now increase his rate according to his level of pain. At this momentEudhiraj rates his pain level a 0 on a 1 to 10 scale. He understands his pain management once home should begin with his scheduled medication, his ice wrap, movement, adjusting his On Q Ball, and finally his prescribed narcotic pain medication. I then discussed in details when to remove the inserted catheter and how to remove it. Tito is aware the On Q Ball is totally disposable. Signs and symptoms that need medical attention were discussed as well. General care and showering were addressed. Tito stated he had a good understanding of the teaching provided. He agrees with the discharge Plan of Care for using the On Q Ball as his first line for pain management on discharge. The plan is for Tito to be discharge later today. His daughter will be active with his care. They are anxious to head home and settle in. * Plan of Care - Regina Rios RN - 03/16/2022 12:30 PM EDT Problem: Patient Care Overview Goal: Plan of Care Review Outcome: Adequate for Discharge Goal: Individualization & Mutuality Outcome: Adequate for Discharge Goal: Discharge Needs Assessment Outcome: Adequate for Discharge Goal: Interdisciplinary Rounds/Family Conf Outcome: Adequate for Discharge Problem: Skin Integrity Impairment, Risk/Actual (Adult) Goal: Identify Related Risk Factors and Signs and Symptoms Description: Related risk factors and signs and symptoms are identified upon initiation of Human Response Clinical Practice Guideline (CPG) Outcome: Adequate for Discharge Goal: Skin Integrity/Wound Healing Description: Patient will demonstrate the desired outcomes by discharge/transition of care. Outcome: Adequate for Discharge * Nursing Notes - Kirsten Crawford RN - 03/16/2022 11:39 AM EDT Assessment unchanged from previous by this nurse unless otherwise noted in flowsheet * Plan of Care - Birgit Thakur RN - 03/16/2022 3:25 AM EDT Problem: Patient Care Overview Goal: Plan of Care Review Outcome: Ongoing Flowsheets (Taken 03/16/2022 0309) Plan Of Care Reviewed With: patient Problem: Skin Integrity Impairment, Risk/Actual (Adult) Goal: Identify Related Risk Factors and Signs and Symptoms Description: Related risk factors and signs and symptoms are identified upon initiation of Human Response Clinical Practice Guideline (CPG) Outcome: Ongoing Flowsheets (Taken 03/16/2022 0323) Related Risk Factors (Skin Integrity Impairment, Risk/Actual): surgery/procedure Signs and Symptoms (Skin Integrity Impairment): other (see comments) Note: Dressing remains dry and intact with no drainage Hemovac contains small amount of drainage Pt denies pain, assessments unchanged and WDL Goal: Skin Integrity/Wound Healing Description: Patient will demonstrate the desired outcomes by discharge/transition of care. Outcome: Ongoing Flowsheets (Taken 03/16/2022 0323) Skin Integrity/Wound Healing: making progress toward outcome Note: POD #1 Problem: Skin Integrity Impairment, Risk/Actual (Adult) Intervention: Promote Skin Healing Flowsheets (Taken 03/16/2022 0323) Skin Protection: incontinence pads utilized transparent dressing maintained Intervention: Promote/Optimize Nutrition Flowsheets (Taken 03/16/2022 0323) Oral Nutrition Promotion: physical activity promoted safe use of adaptive equipment encouraged rest periods promoted Note: Pt not cleared by pt; pt able to sit at edge of the bed with 1 assist Intervention: Prevent/Manage Excess Moisture Flowsheets (Taken 03/16/2022 0323) Skin Protection: incontinence pads utilized transparent dressing maintained Intervention: Prevent/Minimize Sheer/Friction Injuries Flowsheets Taken 03/16/2022 0323 Pressure Reduction Techniques: positioned off wounds pressure points protected weight shift assistance provided Pressure Reduction Devices: heel offloading device utilized Taken 03/16/2022 0309 Positioning/Transfer Devices: pillows Note: IVÁN Ramirez, Foot pumps * Nursing Notes - Birgit Thakur RN - 03/16/2022 3:09 AM EDT Assessment remains unchanged unless otherwise noted in flow sheet. Pt denies pain. Neuro/pulses unchanged. New bag of NS hung at this time. Vitals WDL. Pt denies any needs and call light is in reach. * Nursing Notes - Birgit Thakur RN - 03/15/2022 11:59 PM EDT Assessment remains unchanged unless otherwise noted in flow sheet. Pt denies any pain. Neuro/pulsesunchanged. NS infusing @ 100ml/hr and Ancef administered. Pt denies any needs and call light is in reach. * Nursing Notes - Birgit Thakur RN - 03/15/2022 8:06 PM EDT RT called at this time due to O2 change from 1.5 to 1L. Pt also has home CPAP/BIPAP device. RT madeaware. * Nursing Notes - Araseli Ron RN - 03/15/2022 5:53 PM EDT Patient tolerating clear liquids at this time, diet advanced per orders. * Nursing Notes - Araseli Ron RN - 03/15/2022 2:26 PM EDT Patient to OR at this time. * Nursing Notes - Araseli Ron RN - 03/15/2022 11:57 AM EDT Patient assessment unchanged from previous. Patient ambulated to bathroom and voided. Patient denies any needs at this time. Call light in reach. * Nursing Notes - Gini Medrano RN - 02/18/2022 1:25 PM EDT 02/18/22 1324 Information Source Information Source patient Contact Information Computer Systems Manager Name Gini Medrano RN Case Manager's Living Environment Lives With alone Living Arrangements house (One story home) Provides Primary Care For no one Primary Care Provided By self Support System Immediate family Able to Return to Prior Arrangements yes Employment/Financial Employed? Retired Cognitive/Perceptual/Developmental Current Mental Status/Cognitive Functioning no deficits noted Recent Changes in Mental Status/Cognitive Functioning no changes Developmental Stage Stage 8 (65 years-/Late Adulthood) Integrity vs. Despair Emotional/Psychological Affect no deficits noted Mood congruent to situation Verbal Skills no deficits noted Current Interpersonal Conduct/Behavior appropriate to situation Mental Health Conditions/Symptoms none;denies Thought Process Alterations no deficits noted Referral Information Referral Source physician AZALIA met with patient this date to discuss post-surgical discharge plans. Patient states that he plans to return home with [facility]. The patient states that his daughter is a nurse practitioner and will be staying with him at night. During the day, his granddaughter, who is in nursing school will be checking in on him. Patient has a wheeled walker, instructed to bring with him on the day of surgery. He reports that he also has a cane and a walk in shower with a bench. Patient denies any other questions or needs at this time. CM to continue to follow and assist with discharge plans. documented in this encounterPikes Peak [facility] HospitalC2FO [facility] [id number] Note* Nursing Notes - Kirsten Crawford RN - 03/16/2022 3:01 PM EDT Discharge instructions gone over with pt and pt's daughter at this time by Regina GAVIN. Both, verbalize understanding and deny any further questions. Hemovac drain removed at this time, tip intact upon removal, pt tolerated well. Properati [id number] History of Present illness Narrative* Blanca Peck, TILE FINISHER - 03/16/2022 2:21 PM EDT 03/16/22 1421 Time In/Out Time In 1421 Time Out 1445 Total Visit Time 24 minutes Subjective RN Approved Intervention as tolerated Existing Precautions/Restrictions fall Subjective Reports patient seated in bedside chair on arrival this afternoon with daughter present.patient reports that he is looking forward to going home today. Cognitive Status Examination Level of Consciousness alert;cooperative General Pain Documentation (Adult, OB, Peds) Presence of Pain complains of pain/discomfort Pain Location knee, right Select Pain Scale DVPRS (Defense and Veterans Pain Rating Scale) (Adult- Cognitively Intact) DVPRS (Defense and Veterans Pain Rating Scale) DVPRS: Rest 0- no pain DVPRS: Activity 4- mild pain (right lateral knee) Objective Therapeutic Interventions patient is able to safely complete a car transfer with mod I. Transfer Skill: Sit To Stand, Rehab Eval [place] (Sit-Stand Transfers) (mod I) Physical Assist/Nonphysical Assist: Sit/Stand 1 person assist Weight-Bearing Restrictions: Sit/Stand weight-bearing as tolerated Assistive Device For Transfer: Sit/Stand armed chair Gait Skills, PT Eval Level of [place]: Gait (mod I) Weight-Bearing Restrictions: Gait weight-bearing as tolerated Assistive Device For Transfer: Gait 2 wheeled walker Gait Distance (600ft; patient demonstrates a good quality heel - toe pattern consistently throughtout treatment) Stair Negotiation [place] Level: Stair Negotiation supervision Physical Assist: Stair Negotiation (x1) Weight-Bearing Restrictions: Stair Negotiation weight-bearing as tolerated Assistive Device: Stair Negotiation straight cane (straight cane right UE and support provided on left UE) Number of stairs 2 x 4 steps; initial verbal cuing for sequencing Stair Railings no rail Plan Additional Comments patient reports confidence in returning home and denies questions or concerns. patient was left seated in bedside chair with call light within reach. daughter present. RN notifiedthat patient has returned from PT. * Colin Fontaine RPh,PharmD - 03/16/2022 11:58 AM EDT AOP Patient Education on Meds to Beds Scripts AOP received prescriptions for Tito Goncalves for bedside delivery at discharge Prescriptions filled and ready Medication Copay Acetaminophen 325mg 4.00 Oxycodone 5mg 8.60 Tab-A-Lesly 4.00 Docusate 100mg 4.00 Total $ 20.60 Birgit Henriquez (Automotive Parts Salesperson) reviewed medications with patient regarding indications, directions and potential side effects. Pt had no questions or concerns. Colin Fontaine RPh,PharmD * Jennifer Saab OT - 03/16/2022 11:52 AM EDT 03/16/22 1142 Time In/Out Time In 1142 Time Out 1152 Total Visit Time 10 minutes Total Treatment Time (skilled, billable minutes) 10 minutes Initial Evaluation/Screen Completed? yes General Information RN Approved Intervention as tolerated Admitting Diagnosis R knee OA Surgical Procedure Underwent R TKA by Dr. Bedoya on 03/15/2022. Past Surgical History Past Surgical History: Procedure Laterality Date ARTHROPLASTY KNEE TOTAL Right 03/15/2022 Laterality: Right; Surgeon: Pastor Bedoya MD; Location: [facility] REVISION ARTHROPLASTY KNEE Left 02/22/2017 ARTHROPLASTY KNEE TOTAL Left 06/23/2015 CHOLECYSTECTOMY 2012 Past Medical History Past Medical History: Diagnosis Date Arrhythmia afid not since 2018 Diabetes mellitus Essential hypertension, benign Hyperlipidemia OA (osteoarthritis) of knee bilat CUBA (obstructive sleep apnea) RA (rheumatoid arthritis) Skin cancer 2013 Existing Precautions/Restrictions fall;weight bearing (WBAT RLE; has hemovac drain and on-Q ball) Previous Level of Function Bed Mobility/Transfers independent Bathing independent Upper Body Dressing independent Lower Body Dressing independent Grooming independent Toileting independent Eating independent Home Management Skills independent General Pain Documentation (Adult, OB, Peds) Presence of Pain denies pain/discomfort Home Setting Residence House (1-story) Lives With alone First floor setup bedroom;walk-in shower Number of Stairs to Enter Home 2 (with rail) Equipment Available straight cane;wheeled walker;shower chair Cognitive Status Examination Orientation Status (Cognition) oriented x 4 Level of Consciousness alert;cooperative Able to Follow Commands (Communication) WFL Personal Safety and Judgment intact Cognitive Function Memory intact Attention intact Vision Screen Currently wearing corrective lenses No Speech Speech no gross deficits noted Successful Methods (Communication Strategies) verbal speech Hearing Hearing no gross deficits noted Manual Muscle Testing (MMT) Manual Muscle Testing Results no strength deficits were identified (functionally, BUEs) Skin Integrity Skin Integrity Description Surgical incision Transfer Skill: Sit to Stand, Rehab Eval Level of [place]: Sit/Stand contact guard Physical Assist/Nonphysical Assist: Sit/Stand 1 person assist Weight-Bearing Restrictions: Sit/Stand weight-bearing as tolerated Assistive Device for Transfer: Sit/Stand wheeled walker;armed chair Transfer Skill: Stand to Sit, Rehab Eval Level of [place]: Stand/Sit contact guard Physical Assist/Nonphysical Assist: Stand/Sit 1 person assist Weight-Bearing Restrictions: Stand/Sit weight-bearing as tolerated Assistive Device for Transfer: Stand/Sit wheeled walker;armed chair Gross Coordination Gross Coordination bilat UE intact BADL Evaluation Additional Documentation (Anticipate difficulty with LB self-care secondary to decreased R knee ROM/strength and mild balance deficits.) General Therapy Interventions Planned Therapy Interventions (OT Eval) ADL retraining;balance training;transfer training PRIOR LEVEL AM-PAC Activity Inpatient Short Form Putting on/Taking Off Lower Body Clothing 4 - No Assistance Bathing 4 - No Assistance Toileting 4 - No Assistance Putting on/Taking Off Upper Body Clothing 4 - No Assistance Grooming 4 - No Assistance Eating 4 - No Assistance PRIOR LEVEL AM-PAC Activity Raw Score 24 PRIOR LEVEL AM-PAC Activity Functional Limitation/Modifier 0.00% Prior Functional Impairment in Daily Activity CURRENT AM-[facility] Daily Activity Inpatient Short Form Putting on/Taking Off Lower Body Clothing 3 - A Little Assistance Bathing 3 - A Little Assistance Toileting 3 - A Little Assistance Putting on/Taking Off Upper Body Clothing 3 - A Little Assistance Grooming 3 - A Little Assistance Eating 4 - No Assistance CURRENT AM-[facility] Activity Raw Score 19 CURRENT AM-PAC Activity Functional Limitation/Modifier 42.80% Currently Impaired in Daily Activity - CK Assessment Narrative Assessment Presents with decreased R knee ROM/strength and mild balance deficits, which are barriers to pt's occupational performance with ADLs. He will benefit from acute OT intervention to maximize his safetyand independence with self-care and household mobility prior to return home. Clinical Impression Co-evaluation/co-treatment performed? No simultaneous skilled care performed Patient Instruction Purpose and goals of OT discussed with pt. Pt also instructed to sponge bathe until no longer has on-Q ball. Rehab Potential (OT Eval) good, to achieve stated therapy goals Therapy Frequency (1-2 time followup following initial evaluation) Today's Treatment Included initial evaluation Continue care plan yes Goals Goal 1 Pt will perform UB self-care with set up. Goal 2 Pt will complete LB self-care with SBA-CGA and use of AE PRN. Goal 3 Pt will perform toileting tasks with SBA-CGA. Therapist Recommendations At Discharge Recommendations OT Services not recommended at Discharge Plan Plan for next session ADL training; Discussed pt's history and OT POC/goals with MACIEL prior to initiation of treatment Therapist Information License # [id number] In addition to above, ambulated with CGA using FWW. Reclined in chair at end of session with his call light and personal items placed in reach. CLAUDIO Jacobo/Camron 03/16/2022 * Pato Gutierrez - 03/16/2022 11:46 AM EDT Pharmacy to Dose - Warfarin Note PATIENT: Tito Goncalves Room/Bed: 270/ Desired INR range: 2-3 Indication(s): Atrial Fibrillation Medications: No drug interactions were identified based on the patient's current therapy. Current Diet Status: Regular Recent bleeding/bleeding event: None noted Last labs: INR Date Value Ref Range Status 03/16/2022 1.37 (H) 0.85 - 1.10 Final Comment: 2.0-3.0 THERAPEUTIC RANGE 2.5-3.5 MECHANICAL VALVE RANGE Testing performed at [place] [id number] - ALBUMIN Date Value Ref Range Status 03/16/2022 3.3 (L) 3.5 - 5.0 G/dl Final - Plan: An order was placed for Coumadin 7.5 mg today x 1 based on INR = 1.37. A Pharmacist will continue to follow and make dose changes as clinically appropriate. Please contact pharmacy if there are any questions. Signed: Lopez Villafana Phone: [phone] Date/Time: 03/16/2022 11:46 AM * Yashira Valencia, PT - 03/16/2022 10:16 AM EDT 03/16/22 1016 Time In/Out Time In 1016 Time Out 1106 Total Visit Time 50 minutes Total Treatment Time (skilled, billable minutes) 45 minutes Initial Evaluation/Screen Completed? yes Physical Therapy Total Joint Evaluation Patient Safety Communication Prior to Visit Nursing Referring Physician Dr. Bedoya Surgery date 03/16/22 Type of Surgery total knee arthroplasty - right Existing Precautions/Restrictions fall;weight bearing (On-Q ball; hemovac) Right Lower Extremity weight bearing as tolerated Previous Level of Function Bed Mobility/Transfers independent Ambulation Skills independent Assistive Device none used Level of Ambulation community Home Setting Residence House (1 story) Lives With alone;other (see comments) (Pt reports post-op upon discharge he will have a rotation of assistance from his daughter, granddaughter, and lady friend at least through Tuesday upon return home. Pt reports he will have assist as long as he needs it.) First floor setup bedroom;walk-in shower Number of stairs to enter home 2 stairs + porch + 2 stairs Stair Railings at Home entry - no rail Mobility Equipment Available 2 wheeled walker;straight cane General Pain Documentation (Adult, OB, Peds) Presence of Pain denies pain/discomfort Pain Location knee, right Pain Management Interventions ambulated;cold application Select Pain Scale DVPRS (Defense and Veterans Pain Rating Scale) (Adult- Cognitively Intact) DVPRS (Defense and Veterans Pain Rating Scale) DVPRS: Rest 0- no pain DVPRS: Activity 3- mild pain (knee flexion) General Pain Descriptors Pain Quality soreness Cognition Overall Cognitive Status WFL Arousal/Alertness Appropriate responses to stimuli Orientation Level Oriented X4 Following Commands Follows all commands and directions without difficulty Safety Judgment Good awareness of safety precautions Awareness of Errors Assistance required to identify errors made Deficits Fully aware of deficits Attention Span Appears intact Memory Appears intact Problem Solving Assistance required to identify errors made Sensation Overall Sensation Intact Sensation Comments denied numbnes or tingling Range of Motion RLE (R knee 2 -114 degrees flexion AAROM) LLE WFL Strength RLE (ankle 4+/5; knee and hip at least 3/5) LLE WFL Supine to Sit Mobility [place] Level: Supine->Sit stand-by assist Physical Assist: Supine->Sit (1 person) Bed Features/Set-up: Supine->Sit Head of bed elevated Skilled Rationale Verbal cues;Sequencing Sit to Stand Transfer [place] Level: Sit->Stand stand-by assist Physical Assist: Sit->Stand (1 person) Assistive Device: Sit->Stand 2 wheeled walker;gait belt Skilled Rationale Verbal cues;Hand placement;Sequencing Stand to Sit Transfer [place] Level: Stand->Sit stand-by assist Physical Assist: Stand->Sit (1 person) Assistive Device: Stand->Sit 2 wheeled walker;gait belt Skilled Rationale Verbal cues;Hand placement;Sequencing;Controlled descent for sitting Sitting Balance Static Sitting-Level of Assistance Independent Standing Balance Static Standing-Level of Assistance Stand-by assist Dynamic Standing-Level of Assistance Stand-by assist Standing-Balance Support 2 wheeled walker;Gait belt Skilled Rationale Verbal cues;Full extension to upright positioning/posture;Upright gaze/neck extension Gait Assessment [place] Level: Gait contact guard assist Physical Assist: Gait (1 person) Assistive Device: Gait 2 wheeled walker;gait belt Gait Distance (feet) 250ft x 1; 25ft x 1 Gait Deviations Identified decreased ludwin;decreased gait speed;decreased heel strike;decreased step length;decreased stride length;flexed posture Gait Skilled Rationale verbal;upright posture;hand placement on assistive device;proximity of assistive device Skin Integrity Skin Integrity Description (On-Q ball; hemovac) PT Interventions PT Interventions (PT educated pt on and pt completed BLE ther-ex including ankle pumps , quad sets, glute sets x 10-15 reps. Pt then educated on and completed RLE strengthening and ROM ther-ex including heel slides, quad sets with towel roll, SLR, SAQ, seated knee extension x 10-15 reps. Assist and cues required for setup and proper exercise technique. Referred to TKA HEP per total joint book. Pt educated on proper LE elevation and icing for pain and edema management. ) Assessment VTE Prevention/Management On - Foot pump device Eval Complexity Assessment History Components Moderate (1-2 personal factors and/or comorbidities) Examination of Body System(s) Components Moderate (Addressing a total of 3 or more elements) Clinical Presentation Stable - unchanging or predictable (Low) Clinical Decision Making (complexity) Low Plan of Care Interventions Planned Therapy Interventions balance training;bed mobility training;edema control;endurance;functional activity tolerance;gait training;neuromuscular re- education;postural re-education;ROM;strengthening;stretching;transfer training Clinical Impression Continue care plan yes Co-evaluation/co-treatment performed? No simultaneous skilled care performed Criteria for Skilled Therapeutic Interventions Met (PT Eval) yes, treatment indicated Impairments Found (PT Eval) Strength;Balance;ROM (range of motion);Pain;Posture;Transfers;Gait/Locomotion;Aerobic capacity/endurance Global Functional Limitations Ambulation/locomotion pain;Increased fall risk;Difficulty with bed mobility;Difficulty with transfers;Decreased functional mobility;Difficulty stair climbing/descent;Decreased ambulation distance/endurance Rehab Potential (PT Eval) good Therapy Frequency BID (twice a day) Discharge Destination Recommendation Home with Home Health (and family/friend assist prn) Anticipated Equipment Needs at Discharge (PT Eval) 2 wheeled walker Plan Plan for next session Car transfers training, stair training Diagnosis: Severe R knee OA Past Medical History: Diagnosis Date Arrhythmia afid not since 2018 Diabetes mellitus Essential hypertension, benign Hyperlipidemia OA (osteoarthritis) of knee bilat CUBA (obstructive sleep apnea) RA (rheumatoid arthritis) Skin cancer 2013 Past Surgical History: Procedure Laterality Date ARTHROPLASTY KNEE TOTAL Right 03/15/2022 Laterality: Right; Surgeon: Pastor Bedoya MD; Location: [facility] REVISION ARTHROPLASTY KNEE Left 02/22/2017 ARTHROPLASTY KNEE TOTAL Left 06/23/2015 CHOLECYSTECTOMY 2013 senior care goals, to be achieved at discharge: 1. Pt to progress to supervision with bed mobility and functional transfers with use of FWW to demonstrate increased functional strength and ability to return home with PRN assist at discharge. 2. Pt to ambulate 300ft with use of FWW and supervision to prepare for household mobility at discharge. 3. Pt to ascend/descend 4 stairs without rail with LRAD and supervision to prepare to enter/exit home at discharge. 4. Pt to complete simulated car transfer with supervision to prepare to exit hospital at discharge. 5. Pt to improve R knee AROM 0 to 120 degrees flexion for improved transfers and gait. 6. Pt to be I and compliant with TKA HEP to maintain therapy gains at discharge Yashira Valencia PT 03/16/2022 * Angela Solis, RD - 03/16/2022 9:03 AM EDT NUTRITION ASSESSMENT: POST-OP ORTHOPEDIC Nutrition Assessment Will add 5.5 oz Ensure Max to diet order w/ every L and S. Pt would benefit from the additional kcal, protein, vitamins, and minerals to help meet increased nutrition needs based on recent orthopedicsurgery with Dr. Bedoya. Recommend to continue supplementation at home for 2-4 weeks after surgery. Anthropometrics: Ht Readings from Last 1 Encounters: 03/15/22 1.829 m (6' 0.01 ) Wt Readings from Last 5 Encounters: 03/15/22 106.1 kg (234 lb) 02/11/22 111.1 kg (245 lb) 01/21/22 111.1 kg (245 lb) 03/20/20 112.5 kg (248 lb) 02/08/18 117.9 kg (260 lb) [place] body weight: 77.6 kg (171 lb 1.9 oz) Adjusted ideal body weight: 89 kg (196 lb 4.3 oz) Body mass index is 31.73 kg/m . Nutrition Intake: Current Diet Orders Procedures DIET REGULAR Oral Supplement Please send 5.5 oz Ensure Max every L and S Standing Status: Standing Number of Occurrences: 1 Order Specific Question: Additional Modifier: Answer: Oral Supplement Allergies Allergen Reactions Iodine Swelling Mouth swelled shut Penicillin G Hives Shellfish Allergy Swelling Sulfa Antibiotics Swelling Labs: Lab Results Component Value Date GLUCOSE 230 (H) 03/16/2022 GLUCOSE 118 (H) 03/15/2022 GLUCOSE 114 (H) 02/18/2022 HGBA1C 7.3 (H) 02/18/2022 SODIUM 136 (L) 03/16/2022 POTASSIUM 4.5 03/16/2022 PHOSPHORUS 2.9 03/16/2022 CALCIUM 7.9 (L) 03/16/2022 ALBUMIN 3.3 (L) 03/16/2022 TP 6.4 02/18/2022 BUN 22 (H) 03/16/2022 CREATSERUM 1.20 03/16/2022 AST 19 02/18/2022 ALT 19 02/18/2022 HGB 11.7 (L) 03/16/2022 HCT 33.9 (L) 03/16/2022 WBC 9.5 03/16/2022 RBC 3.89 (L) 03/16/2022 PMH & PSH: Past Medical History: Diagnosis Date Arrhythmia afid not since 2018 Diabetes mellitus Essential hypertension, benign Hyperlipidemia OA (osteoarthritis) of knee bilat CUBA (obstructive sleep apnea) RA (rheumatoid arthritis) Skin cancer 2013 2017,2013 Past Surgical History: Procedure Laterality Date REVISION ARTHROPLASTY KNEE Left 02/22/2017 ARTHROPLASTY KNEE TOTAL Left 06/23/2015 CHOLECYSTECTOMY 2012 Nutrition Diagnosis NI-5.1 Increased protein needs related to increased demand for protein as evidenced by s/p orthopedic surgery. Interventions Monitoring & Evaluation Monitor PO intake, labs, wt, and ONS intake. Angela Solis RD LD Registered Dietitian, Licensed Dietitian 03/16/22 * Gini Medrano RN - 03/16/2022 8:43 AM EDT Patient was assessed in [facility] [place] on 02/18/22. Met with patient for follow up after surgery to discuss discharge plan. Patient plans to return home with [facility]. His daughter will be staying with him at night and he will have other family and friends staying with him during the day upon his return home. Patient has a wheeled walker and denies any equipment needs at this time. Nursing reports that the incision has been closed with dermabond, will request a 3 week follow up appointment. Patient will need a daily PT/INR x 4 days or until therapeutic. Patient reports that he follows with Dr. Metz for his Warfarin and PT/INR management. Questions answered regarding [facility], patient denies any other questions or needs at this time. Referral information with orders for PT/INR faxed to [facility], spoke with staff who confirm start of care for tomorrow. Follow up appointment scheduled for 04/08/22 @ 10:00 am. * Grupo Morgan RPh,PharmD - 03/15/2022 6:24 PM EDT Pharmacy to Dose - Warfarin Note PATIENT: Tito Goncalves Room[place] [facility] [place] [facility] [place] Desired INR range: 2-3 Indication(s): Atrial Fibrillation Last labs: INR Date Value Ref Range Status 03/15/2022 1.36 (H) 0.85 - 1.10 Final Comment: 2.0-3.0 THERAPEUTIC RANGE 2.5-3.5 MECHANICAL VALVE RANGE Testing performed at [place], [place] [address] - ALBUMIN Date Value Ref Range Status 02/18/2022 3.8 3.5 - 5.0 G/dl Final - Plan: An order was placed for 5 mg based on current Home Dosage. A Pharmacist will continue to follow and make dose changes as clinically appropriate. Please contact pharmacy if there are any questions. Signed: Grupo Morgan RPh,PharmD, Pharmacist Phone: [phone] Date/Time: 03/15/2022 6:24 PM * Samantha Miner - 03/15/2022 4:49 PM EDT THIS PATIENT HAS HAD ORTHOPEDIC SURGERY AND IS EXPECTED TO HAVE PAIN REQUIRING NARCOTICS FOR >7 DAYS AND MAY NEED UP TO 12 tabs of Oxycodone PER DAY AND THEREFORE 30 tabs ARE BEING DISPENSED IN ACCORDANCE WITH POC DISCUSSED WITH DR BEDOYA. * Caren Perez RN - 02/24/2022 1:16 PM EDT Images from the original note were not included. EK Tito Goncalves Male, 77 y.o., 1945 (H) PCP: Augustine Metz DO Primary Cvg: Medicare/Medicare A And B RE: ekg Received: Today DO Caren Aly RN Cc: Archana Urena RN That is fine. Let me know if thehey find anything Previous Messages ----- Message ----- From: Caren Perez RN Sent: 02/19/2022 8:03 AM EDT To: Archana Urena RN, Iftikhar Yip DO Subject: ekg Pt is getting pcp clearance, Please review EKG and advise. Thanks! Let us know If you require anything further documented in this [facility]06-21-2022 Note* Nursing Notes - Dian Roberts RN - 03/16/2022 2:00 PM EDT Tito was just given bedside teaching on his On Q Ball and his daughter is present. The methods used for this teaching included discussion, hands on demonstrations, and material handouts. His teaching begin with the purpose of the On Q Ball and it's use. All parts of the Ball were discussed and the working of the dial. Tito was able to adjust his dial and flow rate. The rate is currently set at 2ml/hr and he is aware he can now increase his rate according to his level of pain. At this momentEudhiraj rates his pain level a 0 on a 1 to 10 scale. He understands his pain management once home should begin with his scheduled medication, his ice wrap, movement, adjusting his On Q Ball, and finally his prescribed narcotic pain medication. I then discussed in details when to remove the inserted catheter and how to remove it. Tito is aware the On Q Ball is totally disposable. Signs and symptoms that need medical attention were discussed as well. General care and showering were addressed. Tito stated he had a good understanding of the teaching provided. He agrees with the discharge Plan of Care for using the On Q Ball as his first line for pain management on discharge. The plan is for Tito to be discharge later today. His daughter will be active with his care. They are anxious to head home and settle in. [facility]06-21-2022 Hospital Discharge instructions* Discharge Instructions* Kirsten Crawford RN - 03/16/2022 12:36 PM EDT You have been given printed educational handouts on all new medications. Please refer to your greendischarge folder for handouts. You have been given seven ABD pads, one ice gel compression wrap, six ice gel packs, two pairs of IVÁN hose and all personal belongings. If at any time you have questions please refer to your green discharge folder with all at home care instructions. Iván Hose: > Help reduce the risk of blood clots and decrease swelling > To be worn bilaterally to the lower extremities for 30 days post-op > You are able to take your IVÁN hose off for 1 hour for every 8 hours that they wear them Medications: > You have been sent home with prescriptions, including medication for pain to be taken as directed. Stay ahead and do not allow your pain to get out of control. > If prescribed Aspirin, take twice a day for 30 days. Do not skip a dose, this is your medication for the prevention of blood clots. > If you have not had a bowel movement by your 3rd post-operative day you will need to use a gentle over the counter laxative such as Milk of magnesia, Fiberlax, Miralax, etc. Bowels need to move within 3 days or take action. Gel Ice Packs > Change every 4 hours or as needed for swelling and pain for at least the first 2 weeks Ambulation > Weight bearing status : as tolerated For Knee Replacements: > Above weight bearing status as tolerated with a walker then progress to a cane if stable, unless noted otherwise by the physician or therapist. > Physical therapy 3 times per week for 6 full weeks > Maintain uninterrupted therapy if transitioning from home therapy to out patient therapy > No therabands over your wound/incision > Patients should be doing home exercises on days they are not working with a therapist > Do not rest with a pillow under the knee, work on flexion and extension exercises to improve range of motion Anesthesia Precautions & Expectations: After anesthesia, rest for [address], drink alcoholic beverages or make any important decisions during this time. General anesthesia may cause a sore throat, jaw discomfort or muscle aches. These symptoms can last for one or two days. * Discharge Instr - Activity* Regina Rios RN - 03/16/2022 8:54 AM EDT Ambulate with wheeled walker until follow up appointment or directed by Dr. Bedoya. * Discharge Instr - Diet* Domenico Ferguson MD - 03/16/2022 8:54 AM EDT Resume previous diet * Discharge Instr - Notify* Gini Medrano RN - 03/16/2022 11:45 AM EDT Home Health to draw daily PT/INR x 4 days or until therapeutic with results to [facility]. , Contact Office ([phone]) if: > Total Knee ROM < 90 degrees upon admission to home health or at any time during recovery period > Any falls or injuries > Redness, drainage or swelling at the incision site that is out of the ordinary from post-operative findings (minor redness, swelling and warmth around the entire knee are common post-operatively) > Patient non-compliance with assistive devices during gait > Fever > 101 degrees. For low grade fevers use Incentive Spirometry @ 10 puffs per hour and tylenol as directed. * Discharge Instr - Wound Care* Kirsten Crawford RN - 03/16/2022 12:34 PM EDT Your incision is closed with Dermabond. You may shower with this. Do not saturate or submerge extremity in water (i.e. Bathtub, hot tub, etc.) until cleared by the provider. Do not wash/scrub directly over/on your incision. Pat your incision dry do not rub your incision with a towel. Do not place any lotions, ointments, creams or powder on your incision or operative leg. When applying your new ABD pad after showering as a reminder do not place any tape over you ABD pad. Your iván hose are to hold your pad in place. You have been provided with an educational handout about your On-Q Pain Relief System. Things to remember: 1.) The the ball is NOT filled with narcotics. It is filled with numbing medication called Ropivacaine which is simply numbing the nerves around the knee. 2.) Your pump was set at 8ml/hr at discharge. If you have an increase in pain follow instruction provided to you in educational handout. 3.) Pump MUST be in black kuldeep pack and worn around the neck, shoulder or abdomen during therapy or ambulation. This is to ensure that pump doesn't fall and dislodge the catheter. 4.) Do NOT squeeze the ball 5.) Leaking at the catheter site is normal. Do not be alarmed; just use a paper towel or dry wash cloth to absorb the access 6.) Taking a sponge bath is preferred while having the ON-Q ball in place. 7.) Do not drive 8.) Follow instructions to remove ON-Q ball as instructed on the ON-Q Catheter Removal Sheet . Once catheter is removed place a band aid or nothing at all over the incision site. Remove the On-Q ball 5 days after discharge or when it is empty. 9.) Once the catheter is removed it is NOT reusable, throw the ball away in the trash. * Attachments The following attachments cannot be sent through Care Everywhere. * docusate (oral/rectal) ([place]) * oxycodone ([place]) [facility]* Plan of Care - Regina Rios RN - 03/16/2022 12:30 PM EDT Problem: Patient Care Overview Goal: Plan of Care Review Outcome: Adequate for Discharge Goal: Individualization & Mutuality Outcome: Adequate for Discharge Goal: Discharge Needs Assessment Outcome: Adequate for Discharge Goal: Interdisciplinary Rounds/Family Conf Outcome: Adequate for Discharge Problem: Skin Integrity Impairment, Risk/Actual (Adult) Goal: Identify Related Risk Factors and Signs and Symptoms Description: Related risk factors and signs and symptoms are identified upon initiation of Human Response Clinical Practice Guideline (CPG) Outcome: Adequate for Discharge Goal: Skin Integrity/Wound Healing Description: Patient will demonstrate the desired outcomes by discharge/transition of care. Outcome: Adequate for Discharge [facility]* Nursing Notes - Kirsten Crawford RN - 03/16/2022 11:39 AM EDT Assessment unchanged from previous by this nurse unless otherwise noted in flowsheet [facility] Hospital course Narrative* Domenico Ferguson MD - 03/16/2022 8:54 AM EDT Images from the original note were not included. Discharge Summary Name: Tito Goncalves Age: 77 y.o. Birthday: 1945 Admit Date: 03/15/2022 8:10 AM Discharge Date: 03/16/2022 Discharge Time: 03/16/2022 Discharge Unit: [facility] Rehab [facility] Unit Length of Stay: LOS: 0 days Admission Information Admitting Physician: Pastor Bedoya MD Discharge Information Discharge Physician: Domenico Ferguson MD Problem List Active Hospital Problems Diagnosis S/P total knee arthroplasty, right Paroxysmal atrial fibrillation Gastroesophageal reflux disease without esophagitis Mixed hyperlipidemia Type 2 diabetes mellitus without complication, without long-term current use of insulin Stage 3a chronic kidney disease Restless leg syndrome Hyponatremia Arrhythmia Resolved Hospital Problems No resolved problems to display. Brief Summary of Hospital Course for Discharge Summary: this is a 77-year-old male with past medical history of hypertension gastroesophageal reflux disease hyperlipidemia paroxysmal atrial fibrillation chronic kidney disease stage III diabetes mellitus type 2 not on insulin restless leg. Kidney stones, admitted to [facility] for elective rig ht total knee arthroplasty with Dr. Bedoya March 15. After this surgery patient complains of no chest pain or shortness of breath no palpitations no abdominal pain no nausea vital signs and labs were monitored patient worked with physical therapy and will be discharge home with follow-up home healthprimary care and orthopedic services Brief Summary of Consults for Discharge Summary: Brief Summary of Procedures and Imaging for Discharge Summary: Summary of last selected lab results and date obtained: Lab Results Component Value Date WBC 9.5 03/16/2022 HGB 11.7 (L) 03/16/2022 HCT 33.9 (L) 03/16/2022 PLATELET 154 03/16/2022 MCV 87.2 03/16/2022 Lab Results Component Value Date SODIUM 136 (L) 03/16/2022 POTASSIUM 4.5 03/16/2022 CHLORIDE 106 03/16/2022 CO2 23 03/16/2022 BUN 22 (H) 03/16/2022 CREATSERUM 1.20 03/16/2022 GLUCOSE 230 (H) 03/16/2022 Lab Results Component Value Date ALT 19 02/18/2022 AST 19 02/18/2022 ALKPHOS 61 02/18/2022 BILITOTAL 0.6 02/18/2022 Brief Summary of Labs for Discharge Summary: Discharge Orders AMB REFERRAL TO PHYSICAL THERAPY AMB REFERRAL TO HOME HEALTH - DETAILED Current Outpatient Meds: Medication List for when you go home START taking these medications docusate 100 MG CAPS Take 1 capsule by mouth 2 times daily. Commonly known as: COLACE oxyCODONE 5 MG TABS Take one to two tabs every 4-6 hours as needed for severe pain. Wean as tolerated Commonly known as: ROXICODONE For diagnoses: Acute postoperative pain of right knee CHANGE how you take these medications acetaminophen 325 MG tablet Take 2 tablets by mouth every 4 hours as needed for Mild Pain. Commonly known as: TYLENOL What changed: The strength you have reported taking of this medication has changed The quantity you have reported taking of this medication has changed How often you have reported taking this medication has changed * PRESERVISION AREDS PO Take by mouth. What changed: Another medication with the same name was added. Make sure you understand how and when to take each. * therapeutic multivitamin-minerals TABS Take 1 tablet by mouth at bedtime. What changed: You were already taking a medication with the same name, and this prescription was added. Make sure you understand how and when to take each. * The same medication is listed twice. Please discuss with your provider. CONTINUE taking these medications amLODIPine 10 MG TABS Take 10 mg by mouth. Commonly known as: NORVASC aspirin EC [address] Take 81 mg by mouth daily. atorvastatin 10 MG TABS Take 10 mg by mouth every evening. Commonly known as: LIPITOR benazepril 20 MG TABS Take 20 mg by mouth daily. Commonly known as: LOTENSIN carveDILOL 6.25 MG TABS Take 6.25 mg by mouth 2 times daily. Commonly known as: COREG clonazePAM 1 MG TABS Take 1 mg by mouth every evening. Commonly known as: KLONOPIN ferrous sulfate 325 (65 Fe) MG TABS Take 325 mg by mouth daily. omeprazole [address] capsule Take 20 mg by mouth daily every morning. Commonly known as: PRILOSEC propafenone 150 MG TABS Take by mouth every 8 hours. Commonly known as: RYTHMOL traZODone 50 MG TABS Take 50 mg by mouth every evening at 6 PM. Commonly known as: DESYREL warfarin 5 MG tablet 7 mg. Tuesday and Tuesday 7.5 mg, S,M,W,THUR,F 5 mg daily Commonly known as: COUMADIN STOP taking these medications Glucosamine-Chondroitin 6706-1780 MG/30ML LIQD Follow-up: No follow-up provider specified. Upcoming Appointments (up to five)-Some appointments for Medical Center outpatient clinics or diagnostic testing locations are not displayed below Provider Department Dept Phone 04/08/2022 10:00 AM Azul Moreno [facility] [phone] Total coordination of discharge care taking greater that 35 minutes documented in this [facility]06-21-2022 Note* Plan of Care - Birgit Thakur RN - 03/16/2022 3:25 AM EDT Problem: Patient Care Overview Goal: Plan of Care Review Outcome: Ongoing Flowsheets (Taken 03/16/2022 0309) Plan Of Care Reviewed With: patient Problem: Skin Integrity Impairment, Risk/Actual (Adult) Goal: Identify Related Risk Factors and Signs and Symptoms Description: Related risk factors and signs and symptoms are identified upon initiation of Human Response Clinical Practice Guideline (CPG) Outcome: Ongoing Flowsheets (Taken 03/16/2022322) Related Risk Factors (Skin Integrity Impairment, Risk/Actual): surgery/procedure Signs and Symptoms (Skin Integrity Impairment): other (see comments) Note: Dressing remains dry and intact with no drainage Hemovac contains small amount of drainage Pt denies pain, assessments unchanged and WDL Goal: Skin Integrity/Wound Healing Description: Patient will demonstrate the desired outcomes by discharge/transition of care. Outcome: Ongoing Flowsheets (Taken 03/16/2022 032) Skin Integrity/Wound Healing: making progress toward outcome Note: POD #1 Problem: Skin Integrity Impairment, Risk/Actual (Adult) Intervention: Promote Skin Healing Flowsheets (Taken 03/16/2022 032) Skin Protection: incontinence pads utilized transparent dressing maintained Intervention: Promote/Optimize Nutrition Flowsheets (Taken 03/16/2022322) Oral Nutrition Promotion: physical activity promoted safe use of adaptive equipment encouraged rest periods promoted Note: Pt not cleared by pt; pt able to sit at edge of the bed with 1 assist Intervention: Prevent/Manage Excess Moisture Flowsheets (Taken 03/16/2022 032) Skin Protection: incontinence pads utilized transparent dressing maintained Intervention: Prevent/Minimize Sheer/Friction Injuries Flowsheets Taken 03/16/2022322 Pressure Reduction Techniques: positioned off wounds pressure points protected weight shift assistance provided Pressure Reduction Devices: heel offloading device utilized Taken 03/16/2022 0309 Positioning/Transfer Devices: pillows Note: IVÁN Hose, Foot pumps [facility]06-21-20[facility] Note* Nursing Notes - Birgit Thakur RN - 03/16/2022 3:09 AM EDT Assessment remains unchanged unless otherwise noted in flow sheet. Pt denies pain. Neuro/pulses unchanged. New bag of NS hung at this time. Vitals WDL. Pt denies any needs and call light is in reach. [facility]06-20-20[facility] Note* Nursing Notes - Birgit Thakur RN - 03/15/2022 11:59 PM EDT Assessment remains unchanged unless otherwise noted in flow sheet. Pt denies any pain. Neuro/pulsesunchanged. NS infusing @ 100ml/hr and Ancef administered. Pt denies any needs and call light is in reach. [facility]* Nursing Notes - Birgit Thakur RN - 03/15/2022 8:06 PM EDT RT called at this time due to O2 change from 1.5 to 1L. Pt also has home CPAP/BIPAP device. RT [place]. [facility]* Nursing Notes - Araseli Ron RN - 03/15/2022 5:53 PM EDT Patient tolerating clear liquids at this time, diet advanced per orders. [facility]-20-20[facility] Consult note* Domenico Ferguson MD - 03/15/2022 4:10 PM EDT History and Physical Examination 03/15/22 4:10 PM Chief Complaint: Right total knee arthroplasty History of Present Illness: Patient is a 77 y.o. male presents for [facility] for elective right total knee arthroplastyDr. Foster March 15 Internal medicine consult added for hypertension gastroesophageal reflux disease hyperlipidemia paroxysmal atrial fibrillation chronic kidney disease stage III restless leg syndrome nephrolithiasis diabetes mellitus not on insulin Before the surgery patient complains of no chest pain or shortness of breath no palpitations no abdominal pain no nausea. Today the patient denies headaches, blurred vision, lightheadedness, fever, chills, chest pain, shortness of breath. The patient denies back pain, nausea, vomiting, diarrhea/constipation, dysuria, unusual arthralgias, myalgias, skin rashes or lesions. After the surgery patient denies chest pain or shortness of breath palpitations abdominal pain or nausea Objective: Patient Active Problem List Diagnosis Date Noted S/P total knee arthroplasty, right 03/15/2022 Paroxysmal atrial fibrillation 03/15/2022 Gastroesophageal reflux disease without esophagitis 03/15/2022 Mixed hyperlipidemia 03/15/2022 Type 2 diabetes mellitus without complication, without long-term current use of insulin 03/15/2022 Stage 3a chronic kidney disease 03/15/2022 Restless leg syndrome 03/15/2022 Hyponatremia 03/15/2022 Arrhythmia 02/11/2022 Past Medical History: Diagnosis Date Arrhythmia afid not since 2018 Diabetes mellitus Essential hypertension, benign Hyperlipidemia OA (osteoarthritis) of knee bilat CUBA (obstructive sleep apnea) RA (rheumatoid arthritis) Skin cancer 2013 Past Surgical History: Procedure Laterality Date REVISION ARTHROPLASTY KNEE Left 02/22/2017 ARTHROPLASTY KNEE TOTAL Left 06/23/2015 CHOLECYSTECTOMY 2012 Social History Tobacco Use Smoking status: Former Smoker Quit date: 02/08/1983 Years since quittin.1 Smokeless tobacco: Former User Quit date: 02/08/2003 Substance Use Topics Alcohol use: No Family History Problem Relation Age of Onset Breast Cancer Mother Hypertension Mother Heart Disease - Other Father Hypertension Father Diabetes Father Prior to Admission medications Medication Sig Start Date End Date Taking? Authorizing Provider acetaminophen 500 MG tablet Take 500 mg by mouth every 6 hours as needed for Mild Pain. Yes Historical Provider amLODIPine 10 MG Tab tablet Take 10 mg by mouth. Yes Historical Provider atorvastatin 10 MG Tab tablet Take 10 mg by mouth every evening. 06/15/12 Yes Historical Provider benazepril 20 MG Tab Take 20 mg by mouth daily. 02/03/18 Yes Historical Provider carveDILOL 6.25 MG tablet Take 6.25 mg by mouth 2 times daily. 03/04/20 Yes Historical Provider clonazePAM 1 MG tablet Take 1 mg by mouth every evening. Yes Historical Provider ferrous sulfate 325 (65 Fe) MG tablet Take 325 mg by mouth daily. Yes Historical Provider omeprazole [address] capsule Take 20 mg by mouth daily every morning. 12/27/17 Yes Historical Provider propafenone 150 MG tablet Take by mouth every 8 hours. Yes Historical Provider traZODone 50 MG tablet Take 50 mg by mouth every evening at 6 PM. Yes Historical Provider aspirin EC [address] Take 81 mg by mouth daily. Historical Provider Glucosamine-Chondroitin 5522-2491 MG/30ML Liquid Take by mouth. Historical Provider Multiple Vitamins-Minerals (PRESERVISION AREDS PO) Take by mouth. Historical Provider warfarin 5 MG tablet 7 mg. Tuesday and Tuesday 7.5 mg, S,M,W,THUR,F 5 mg daily 01/02/18 Historical Provider Medications Prior to Admission Medication Sig Dispense Refill Last Dose acetaminophen 500 MG tablet Take 500 mg by mouth every 6 hours as needed for Mild Pain. 03/14/2022 at Unknown time amLODIPine 10 MG Tab tablet Take 10 mg by mouth. 03/14/2022 at 2200 atorvastatin 10 MG Tab tablet Take 10 mg by mouth every evening. 03/14/2022 at 2200 benazepril 20 MG Tab Take 20 mg by mouth daily. 03/14/2022 at 0800 carveDILOL 6.25 MG tablet Take 6.25 mg by mouth 2 times daily. 03/15/2022 at 630 clonazePAM 1 MG tablet Take 1 mg by mouth every evening. 03/14/2022 at 2115 ferrous sulfate 325 (65 Fe) MG tablet Take 325 mg by mouth daily. Past Week at Unknown time omeprazole [address] capsule Take 20 mg by mouth daily every morning. 03/15/2022 at 0630 propafenone 150 MG tablet Take by mouth every 8 hours. 03/15/2022 at 0630 traZODone 50 MG tablet Take 50 mg by mouth every evening at 6 PM. 03/14/2022 at 2114 aspirin EC [address] Take 81 mg by mouth daily. 03/04/2022 Glucosamine-Chondroitin 2267-7243 MG/30ML Liquid Take by mouth. Multiple Vitamins-Minerals (PRESERVISION AREDS PO) Take by mouth. warfarin 5 MG tablet 7 mg. Tuesday and Tuesday 7.5 mg, S,M,W,THUR,F 5 mg daily 03/07/2022 Allergies Allergen Reactions Iodine Swelling Mouth swelled shut Penicillin G Hives Shellfish Allergy Swelling Sulfa Antibiotics Swelling Review of Systems: Review of Systems Constitutional: Negative for fatigue and unexpected weight change. HENT: Negative for congestion, facial swelling and voice change. Eyes: Negative for pain. Respiratory: Negative for cough and shortness of breath. Cardiovascular: Negative for palpitations and leg swelling. Gastrointestinal: Negative for abdominal distention. Endocrine: Negative for cold intolerance and heat intolerance. Genitourinary: Negative for dysuria and urgency. Musculoskeletal: Negative for gait problem and myalgias. Skin: Negative for rash. Allergic/Immunologic: Negative for immunocompromised state. Neurological: Negative for seizures and weakness. Hematological: Does not bruise/bleed easily. Psychiatric/Behavioral: Positive for sleep disturbance. Negative for dysphoric mood. The patient isnot nervous/anxious. PHYSICAL EXAM: Patient Vitals for the past 8 hrs: BP Temp Temp src Pulse Resp SpO2 Height Weight 03/15/22 0900 -- -- -- -- -- -- 1.829 m (6' 0.01 ) 106.1 kg (234 lb) 03/15/22 0838 165/84 97.9 F (36.6 C) Oral 74 18 96 % 1.829 m (6') 106.1 kg (234 lb) I/O last 3 completed shifts: In: 1100 [I.V.:1000; IV Piggyback:100] Out: - Physical Exam Vitals and nursing note reviewed. Constitutional: General: He is not in acute distress. Appearance: He is obese. He is not toxic-appearing. HENT: Head: Normocephalic. Neck: Thyroid: No thyromegaly. Trachea: No tracheal deviation. Cardiovascular: Rate and Rhythm: Normal rate and regular rhythm. Pulmonary: Effort: Pulmonary effort is normal. Breath sounds: Normal breath sounds. Abdominal: General: Bowel sounds are normal. Palpations: Abdomen is soft. Musculoskeletal: Cervical back: Neck supple. Right lower leg: Edema present. Left lower leg: Edema present. Skin: General: Skin is warm and dry. Capillary Refill: Capillary refill takes less than 2 seconds. Neurological: Mental Status: He is alert and oriented to person, place, and time. Sensory: No sensory deficit. Motor: Weakness present. Gait: Gait abnormal. Psychiatric: Mood and Affect: Mood normal. Behavior: Behavior normal. Diagnostics: Lab Results Component Value Date WBC 5.7 02/18/2022 HGB 12.1 (L) 02/18/2022 HCT 36.3 (L) 02/18/2022 PLATELET 173 02/18/2022 MCV 85.3 02/18/2022 @LASTMAGNESIUM(1D,2)@ Lab Results Component Value Date INR 1.36 (H) 03/15/2022 INR 2.84 (H) 02/18/2022 PT 16.8 (H) 03/15/2022 PT 29.5 (H) 02/18/2022 Lab Results Component Value Date CREATSERUM 1.32 (H) 02/18/2022 BUN 19 02/18/2022 SODIUM 134 (L) 02/18/2022 POTASSIUM 4.3 02/18/2022 CHLORIDE 101 02/18/2022 CO2 27 02/18/2022 Lab Results Component Value Date SPGRVTYUR 1.020 02/18/2022 GLUCOSEURINE 500 (A) 02/18/2022 BILIRUBINURI NEGATIVE 02/18/2022 KETONESURINE NEGATIVE 02/18/2022 NITRITESURIN NEGATIVE 02/18/2022 LEUKOCESTUR NEGATIVE 02/18/2022 WBCURINE NEGATIVE 02/18/2022 RBCURINE NEGATIVE 02/18/2022 BACTERIAURIN NEGATIVE 02/18/2022 No Order No orders to display Impression and Plan: Present on Admission: S/P total knee arthroplasty, right Paroxysmal atrial fibrillation Arrhythmia Gastroesophageal reflux disease without esophagitis Mixed hyperlipidemia Type 2 diabetes mellitus without complication, without long-term current use of insulin Stage 3a chronic kidney disease Restless leg syndrome Hyponatremia Active Problems: Arrhythmia S/P total knee arthroplasty, right Paroxysmal atrial fibrillation Gastroesophageal reflux disease without esophagitis Mixed hyperlipidemia Type 2 diabetes mellitus without complication, without long-term current use of insulin Stage 3a chronic kidney disease Restless leg syndrome Hyponatremia 1.right total knee arthroplasty will continue with pain control and DVT prophylaxis per orthopedic protocol 2. History of paroxysmal atrial fibrillation patient currently on beta blockers and propafenone, patient has a history of arrhythmia when These medicationsinterrupted, will try to keep medications onschedule 3. Chronic kidney disease stage III we will continue to monitor and encourage by mouth fluids 4. Diabetes mellitus type 2 not on insulin we will initiate insulin regular sliding scale low dose 5. Restless leg syndrome we will continue with clonazepam in the evening 6. History of nephrolithiasis from encourage by mouth fluids and avoid dehydration 7. Hyperlipidemia continue with statins 8. Hypertension continue with beta blockers and calcium channel blockers and hold for blood pressure less than 1 20 mmHg, continue with lisinopril 9. History of hyponatremia we will monitor electrolytes and renal function PT OT SS for dc planning GI/DVT prophylaxis with protonix and Eliquis This plan of care was initiated in collaboration with PT, OT, ST and SW. Domenico Ferguson MD [facility]06-20-2022 Consult note* Domenico Ferguson MD - 03/15/2022 4:10 PM EDT History and Physical Examination 03/15/22 4:10 PM Chief Complaint: Right total knee arthroplasty History of Present Illness: Patient is a 77 y.o. male presents for [facility] for elective right total knee arthroplastyDr. Foster March 15 Internal medicine consult added for hypertension gastroesophageal reflux disease hyperlipidemia paroxysmal atrial fibrillation chronic kidney disease stage III restless leg syndrome nephrolithiasis diabetes mellitus not on insulin Before the surgery patient complains of no chest pain or shortness of breath no palpitations no abdominal pain no nausea. Today the patient denies headaches, blurred vision, lightheadedness, fever, chills, chest pain, shortness of breath. The patient denies back pain, nausea, vomiting, diarrhea/constipation, dysuria, unusual arthralgias, myalgias, skin rashes or lesions. After the surgery patient denies chest pain or shortness of breath palpitations abdominal pain or nausea Objective: Patient Active Problem List Diagnosis Date Noted S/P total knee arthroplasty, right 03/15/2022 Paroxysmal atrial fibrillation 03/15/2022 Gastroesophageal reflux disease without esophagitis 03/15/2022 Mixed hyperlipidemia 03/15/2022 Type 2 diabetes mellitus without complication, without long-term current use of insulin 03/15/2022 Stage 3a chronic kidney disease 03/15/2022 Restless leg syndrome 03/15/2022 Hyponatremia 03/15/2022 Arrhythmia 02/11/2022 Past Medical History: Diagnosis Date Arrhythmia afid not since 2018 Diabetes mellitus Essential hypertension, benign Hyperlipidemia OA (osteoarthritis) of knee bilat CUBA (obstructive sleep apnea) RA (rheumatoid arthritis) Skin cancer 2013 Past Surgical History: Procedure Laterality Date REVISION ARTHROPLASTY KNEE Left 02/22/2017 ARTHROPLASTY KNEE TOTAL Left 06/23/2015 CHOLECYSTECTOMY 2012 Social History Tobacco Use Smoking status: Former Smoker Quit date: 02/08/1983 Years since quittin.1 Smokeless tobacco: Former User Quit date: 02/08/2003 Substance Use Topics Alcohol use: No Family History Problem Relation Age of Onset Breast Cancer Mother Hypertension Mother Heart Disease - Other Father Hypertension Father Diabetes Father Prior to Admission medications Medication Sig Start Date End Date Taking? Authorizing Provider acetaminophen 500 MG tablet Take 500 mg by mouth every 6 hours as needed for Mild Pain. Yes Historical Provider amLODIPine 10 MG Tab tablet Take 10 mg by mouth. Yes Historical Provider atorvastatin 10 MG Tab tablet Take 10 mg by mouth every evening. 06/15/12 Yes Historical Provider benazepril 20 MG Tab Take 20 mg by mouth daily. 02/03/18 Yes Historical Provider carveDILOL 6.25 MG tablet Take 6.25 mg by mouth 2 times daily. 03/04/20 Yes Historical Provider clonazePAM 1 MG tablet Take 1 mg by mouth every evening. Yes Historical Provider ferrous sulfate 325 (65 Fe) MG tablet Take 325 mg by mouth daily. Yes Historical Provider omeprazole [address] capsule Take 20 mg by mouth daily every morning. 12/27/17 Yes Historical Provider propafenone 150 MG tablet Take by mouth every 8 hours. Yes Historical Provider traZODone 50 MG tablet Take 50 mg by mouth every evening at 6 PM. Yes Historical Provider aspirin EC [address] Take 81 mg by mouth daily. Historical Provider Glucosamine-Chondroitin 6827-0430 MG/30ML Liquid Take by mouth. Historical Provider Multiple Vitamins-Minerals (PRESERVISION AREDS PO) Take by mouth. Historical Provider warfarin 5 MG tablet 7 mg. Tuesday and Tuesday 7.5 mg, S,M,W,THUR,F 5 mg daily 01/02/18 Historical Provider Medications Prior to Admission Medication Sig Dispense Refill Last Dose acetaminophen 500 MG tablet Take 500 mg by mouth every 6 hours as needed for Mild Pain. 03/14/2022 at Unknown time amLODIPine 10 MG Tab tablet Take 10 mg by mouth. 03/14/2022 at 2200 atorvastatin 10 MG Tab tablet Take 10 mg by mouth every evening. 03/14/2022 at 2200 benazepril 20 MG Tab Take 20 mg by mouth daily. 03/14/2022 at 0800 carveDILOL 6.25 MG tablet Take 6.25 mg by mouth 2 times daily. 03/15/2022 at 630 clonazePAM 1 MG tablet Take 1 mg by mouth every evening. 03/14/2022 at 2115 ferrous sulfate 325 (65 Fe) MG tablet Take 325 mg by mouth daily. Past Week at Unknown time omeprazole [address] capsule Take 20 mg by mouth daily every morning. 03/15/2022 at 0630 propafenone 150 MG tablet Take by mouth every 8 hours. 03/15/2022 at 0630 traZODone 50 MG tablet Take 50 mg by mouth every evening at 6 PM. 03/14/2022 at 2114 aspirin EC [address] Take 81 mg by mouth daily. 03/04/2022 Glucosamine-Chondroitin 2402-8320 MG/30ML Liquid Take by mouth. Multiple Vitamins-Minerals (PRESERVISION AREDS PO) Take by mouth. warfarin 5 MG tablet 7 mg. Tuesday and Tuesday 7.5 mg, S,M,W,THUR,F 5 mg daily 03/07/2022 Allergies Allergen Reactions Iodine Swelling Mouth swelled shut Penicillin G Hives Shellfish Allergy Swelling Sulfa Antibiotics Swelling Review of Systems: Review of Systems Constitutional: Negative for fatigue and unexpected weight change. HENT: Negative for congestion, facial swelling and voice change. Eyes: Negative for pain. Respiratory: Negative for cough and shortness of breath. Cardiovascular: Negative for palpitations and leg swelling. Gastrointestinal: Negative for abdominal distention. Endocrine: Negative for cold intolerance and heat intolerance. Genitourinary: Negative for dysuria and urgency. Musculoskeletal: Negative for gait problem and myalgias. Skin: Negative for rash. Allergic/Immunologic: Negative for immunocompromised state. Neurological: Negative for seizures and weakness. Hematological: Does not bruise/bleed easily. Psychiatric/Behavioral: Positive for sleep disturbance. Negative for dysphoric mood. The patient isnot nervous/anxious. PHYSICAL EXAM: Patient Vitals for the past 8 hrs: BP Temp Temp src Pulse Resp SpO2 Height Weight 03/15/22 0900 -- -- -- -- -- -- 1.829 m (6' 0.01 ) 106.1 kg (234 lb) 03/15/22 0838 165/84 97.9 F (36.6 C) Oral 74 18 96 % 1.829 m (6') 106.1 kg (234 lb) I/O last 3 completed shifts: In: 1100 [I.V.:1000; IV Piggyback:100] Out: - Physical Exam Vitals and nursing note reviewed. Constitutional: General: He is not in acute distress. Appearance: He is obese. He is not toxic-appearing. HENT: Head: Normocephalic. Neck: Thyroid: No thyromegaly. Trachea: No tracheal deviation. Cardiovascular: Rate and Rhythm: Normal rate and regular rhythm. Pulmonary: Effort: Pulmonary effort is normal. Breath sounds: Normal breath sounds. Abdominal: General: Bowel sounds are normal. Palpations: Abdomen is soft. Musculoskeletal: Cervical back: Neck supple. Right lower leg: Edema present. Left lower leg: Edema present. Skin: General: Skin is warm and dry. Capillary Refill: Capillary refill takes less than 2 seconds. Neurological: Mental Status: He is alert and oriented to person, place, and time. Sensory: No sensory deficit. Motor: Weakness present. Gait: Gait abnormal. Psychiatric: Mood and Affect: Mood normal. Behavior: Behavior normal. Diagnostics: Lab Results Component Value Date WBC 5.7 02/18/2022 HGB 12.1 (L) 02/18/2022 HCT 36.3 (L) 02/18/2022 PLATELET 173 02/18/2022 MCV 85.3 02/18/2022 @LASTMAGNESIUM(1D,2)@ Lab Results Component Value Date INR 1.36 (H) 03/15/2022 INR 2.84 (H) 02/18/2022 PT 16.8 (H) 03/15/2022 PT 29.5 (H) 02/18/2022 Lab Results Component Value Date CREATSERUM 1.32 (H) 02/18/2022 BUN 19 02/18/2022 SODIUM 134 (L) 02/18/2022 POTASSIUM 4.3 02/18/2022 CHLORIDE 101 02/18/2022 CO2 27 02/18/2022 Lab Results Component Value Date SPGRVTYUR 1.020 02/18/2022 GLUCOSEURINE 500 (A) 02/18/2022 BILIRUBINURI NEGATIVE 02/18/2022 KETONESURINE NEGATIVE 02/18/2022 NITRITESURIN NEGATIVE 02/18/2022 LEUKOCESTUR NEGATIVE 02/18/2022 WBCURINE NEGATIVE 02/18/2022 RBCURINE NEGATIVE 02/18/2022 BACTERIAURIN NEGATIVE 02/18/2022 No Order No orders to display Impression and Plan: Present on Admission: S/P total knee arthroplasty, right Paroxysmal atrial fibrillation Arrhythmia Gastroesophageal reflux disease without esophagitis Mixed hyperlipidemia Type 2 diabetes mellitus without complication, without long-term current use of insulin Stage 3a chronic kidney disease Restless leg syndrome Hyponatremia Active Problems: Arrhythmia S/P total knee arthroplasty, right Paroxysmal atrial fibrillation Gastroesophageal reflux disease without esophagitis Mixed hyperlipidemia Type 2 diabetes mellitus without complication, without long-term current use of insulin Stage 3a chronic kidney disease Restless leg syndrome Hyponatremia 1.right total knee arthroplasty will continue with pain control and DVT prophylaxis per orthopedic protocol 2. History of paroxysmal atrial fibrillation patient currently on beta blockers and propafenone, patient has a history of arrhythmia when These medicationsinterrupted, will try to keep medications onschedule 3. Chronic kidney disease stage III we will continue to monitor and encourage by mouth fluids 4. Diabetes mellitus type 2 not on insulin we will initiate insulin regular sliding scale low dose 5. Restless leg syndrome we will continue with clonazepam in the evening 6. History of nephrolithiasis from encourage by mouth fluids and avoid dehydration 7. Hyperlipidemia continue with statins 8. Hypertension continue with beta blockers and calcium channel blockers and hold for blood pressure less than 1 20 mmHg, continue with lisinopril 9. History of hyponatremia we will monitor electrolytes and renal function PT OT SS for dc planning GI/DVT prophylaxis with protonix and Eliquis This plan of care was initiated in collaboration with PT, OT, ST and SW. Domenico Ferguson MD documented in this [facility]06-20-2022 Note* Nursing Notes - Araseli Ron RN - 03/15/2022 2:26 PM EDT Patient to OR at this time. [facility]06-20-2022 Note* Nursing Notes - Araseli Ron RN - 03/15/2022 11:57 AM EDT Patient assessment unchanged from previous. Patient ambulated to bathroom and voided. Patient denies any needs at this time. Call light in reach. [facility]05-26-2022 Note* Nursing Notes - Gini Medrano RN - 02/18/2022 1:25 PM EDT 02/18/22 1324 Information Source Information Source patient Contact Information Computer Systems Manager Name Gini Medrano RN Case Manager's Living Environment Lives With alone Living Arrangements house (One story home) Provides Primary Care For no one Primary Care Provided By self Support System Immediate family Able to Return to Prior Arrangements yes Employment/Financial Employed? Retired Cognitive/Perceptual/Developmental Current Mental Status/Cognitive Functioning no deficits noted Recent Changes in Mental Status/Cognitive Functioning no changes Developmental Stage Stage 8 (65 years-/Late Adulthood) Integrity vs. Despair Emotional/Psychological Affect no deficits noted Mood congruent to situation Verbal Skills no deficits noted Current Interpersonal Conduct/Behavior appropriate to situation Mental Health Conditions/Symptoms none;denies Thought Process Alterations no deficits noted Referral Information Referral Source physician CM met with patient this date to discuss post-surgical discharge plans. Patient states that he plans to return home with [facility]. The patient states that his daughter is a nurse practitioner and will be staying with him at night. During the day, his granddaughter, who is in nursing school will be checking in on him. Patient has a wheeled walker, instructed to bring with him on the day of surgery. He reports that he also has a cane and a walk in shower with a bench. Patient denies any other questions or needs at this time. CM to continue to follow and assist with discharge plans. [facility]04-28-2022 History of Present illness Narrative* Luis Wang LPN - 2022 1:10 PM EDT Ortho Nurse - Established Patient Intake Room#: 1 Right knee pain of 9, no interventions, falls, or injuries, came in today with left knee pain, left knee revision 2016 Dr Bedoya Date: 2022 1:06 PM Patient: Tito Goncalves MR#: [id number] : 1945 Age: 77 y.o. Referring Physician: Self, Self Insurance: Payor: MEDICARE / Plan: MEDICARE A AND B / Product Type: *No Product type* / Chief Complaint Patient presents with Left Knee - Pain Right Knee - Pain Visit Vitals Temp 97.2 F (36.2 C) (Temporal) Ht 1.829 m (6') Wt 111.1 kg (245 lb) BMI 33.23 kg/m Pain Presence of Pain: complains of pain/discomfort Pain Location: knee, left, knee, right Select Pain Scale: DVPRS (Defense and Veterans Pain Rating Scale) (Adult- Cognitively Intact) Pain Location: knee, left, knee, right Select Pain Scale: DVPRS (Defense and Veterans Pain Rating Scale) (Adult- Cognitively Intact) Recent Labs No results found for: CRP No results found for: SEDRATE No results found for: WBC, WBCCOUNT, WBCFETAL, HGB, HCT, PLATELET, MCV History Past Medical History: Diagnosis Date Skin cancer 2013 2017,2013 Diabetes mellitus Essential hypertension, benign Hyperlipidemia OA (osteoarthritis) of knee bilat RA (rheumatoid arthritis) Past Surgical History: Procedure Laterality Date REVISION ARTHROPLASTY KNEE Left 02/22/2017 ARTHROPLASTY KNEE TOTAL Left 06/23/2015 CHOLECYSTECTOMY 2012 Family History: His family history includes Breast Cancer in his mother; Diabetes in his father; Heart Disease - Other in his father; Hypertension in his father and mother. Social History: His reports that he quit smoking about 38 years ago. He quit smokeless tobacco use about 18 years ago. He reports that he does not drink alcohol and does not use drugs. Outpatient Medications Prior to Visit Medication Sig Dispense Refill amLODIPine 10 MG Tab tablet Take 10 mg by mouth. aspirin EC [address] Take 81 mg by mouth daily. atorvastatin 10 MG Tab tablet Take by mouth. benazepril 20 MG Tab carveDILOL 6.25 MG tablet clonazePAM 1 MG tablet Multiple Vitamins-Minerals (PRESERVISION AREDS PO) Take by mouth. omeprazole [address] capsule propafenone 150 MG tablet Take by mouth. traZODone 50 MG tablet warfarin 5 MG tablet acetaminophen 500 MG tablet Take 500 mg by mouth every 6 hours as needed for Mild Pain. celecoxib 200 MG Cap capsule Take 200 mg by mouth daily. clonazePAM 0.5 MG Tab tablet 1 mg. diltiazem 120 MG Cap SR 24HR capsule XL hydroCHLOROthiazide 12.5 MG tablet metformin 500 MG Tab tablet Take 500 mg by mouth 2 times daily with meals. Multiple Vitamins-Minerals (MULTIVITAMIN ADULT PO) Take by mouth. No facility-administered medications prior to visit. Current Outpatient Medications: amLODIPine 10 MG Tab tablet, Take 10 mg by mouth., Disp: , Rfl: aspirin EC [address], Take 81 mg by mouth daily., Disp: , Rfl: atorvastatin 10 MG Tab tablet, Take by mouth., Disp: , Rfl: benazepril 20 MG Tab, , Disp: , Rfl: carveDILOL 6.25 MG tablet, , Disp: , Rfl: clonazePAM 1 MG tablet, , Disp: , Rfl: Multiple Vitamins-Minerals (PRESERVISION AREDS PO), Take by mouth., Disp: , Rfl: omeprazole [address] capsule, , Disp: , Rfl: propafenone 150 MG tablet, Take by mouth., Disp: , Rfl: traZODone 50 MG tablet, , Disp: , Rfl: warfarin 5 MG tablet, , Disp: , Rfl: acetaminophen 500 MG tablet, Take 500 mg by mouth every 6 hours as needed for Mild Pain., Disp: , Rfl: Allergies: He is allergic to iodine, penicillin g, shellfish allergy, and sulfa antibiotics. * Pastor Bedoya MD - 2022 1:10 PM EDT HPI: Patient is here today for evaluation of bilateral knee pain. Primary complaint is pain, impairment in the knee and a decreased quality of life secondary to his bilateral knee pain. He is s/p a left knee revision in 2017 by myself for VMO repair and poly exchange. He states the right knee is most symptomatic today. He states he didn't start having left knee discomfort until the right knee became symptomatic. He thinks the left knee discomfort is compensatory. He has had pain over the past 5months. The pain radiates locally, not associated with numbness or tinging. He has a lot of instability with it. He has a fear of falling on a daily basis due to unpredictable ambulation. He has experienced locking, popping, catching and clicking. The more he is on it, the more it hurts. He states he had to discontinue Celebrex due to kidney issues. He is not interested in steroid injections. He denies falls or injuries. His pain is a 9/10 upon exam today. At this time, he is weary of his symptoms and is here today to discuss the scheduling process for a right total knee arthroplasty for optimal half-way management. PHYSICAL EXAM: This is an alert, oriented, and age-appropriate male. He is in no distress. Pleasantand cooperative. EXTREMITIES: The upper extremities have no gross deformities. Normal stability. Skin Intact. 5/5 motor. Intact sensation. Normal neurovascular status. Normal coordination. The lower extremities have no gross deformities. Normal stability. Skin Intact. 5/5 motor. Intact sensation. Normal neurovascular status. Normal coordination. Range of motion upon exam today is 5-120 for the left prosthetic knee with mild mid-flexion laxity and no palpable defects over VMO. Well healed incision. No warmth, redness or effusions. For the right knee, ROM is 10-110, increased crepitus throughout the arc of motion. Painful range of motion. Full motion of hip. No pain. No impingement. No instability. Contralateral leg has normal alignment. Full motion. No pain. No impingement. No instability. IMAGING: Plain film radiographs were reviewed. There is severe arthritis to right knee, loss of joint space, subchondral sclerosis, osteophyte formation, and [id number] contact with posterior loosebodies. He has a left total knee revision arthroplasty in good position and alignment. No evidence of prosthetic implant loosening or migration. No changes in imaging. IMPRESSION: 1.) Severe symptomatic end-stage arthritis, right knee. 2.) Stable status post revisiontotal knee arthroplasty VMO repair and poly exchange, likely compensatory discomfort. 3.) Diabetes,recent A1C of 7.1. PLAN: We have discussed in great detail the nature of the diagnosis, the natural history and expected progression which is likely worsening pain, instability with risks of falls, and additional jointwear and or bone loss. We have discussed the options for treatment including both conservative and operative treatments. We have discussed the risks, benefits, and alternatives to each treatment. Tito is interested in surgical management in the form of a right total knee replacement. Tito understands that the potential benefits are reduced pain, improved stability and improved function. Tito also understands that the major limb and/or life threatening risks include, but are not limited to: bleeding, infection, neurovascular injury including foot drop or paralysis, dislocation, componentfailure, implant loosening, ligament or tendon disruption, fracture, stiffness, chronic pain, chronic disability, need for further surgery, blood clots in the extremities or lungs, stroke, heart attack, loss of limb, and ultimately loss of life. audit intern expectations, risks and general implant surv ivorship were also discussed. Despite these risks, the patient would like to proceed with surgical planning. Today, we will initiate the pre-surgical process including nasal MRSA screening, scheduling an appointment for [facility] and the potential surgical date, and reviewing and signing theconsent forms. We have discussed patellar resurfacing vs not as well as the pros and cons to each method such as risk for fracture and persistent pain. He understands and has no questions. He understands that the decision will be made by me during surgery. A script for presurgical physical therapy was given in attempt to improve preoperative flexibility. We also discussed his left knee discomfort. Likely compensatory and secondary to severity of contralateral arthritic knee. Patient is in agreement to give it 6 months post-op to realign and balance. If the knee remains symptomatic, then will see back for evaluation then. I have reviewed the findings of my clinical staff below and agree with their assessment. Vitals: 01/21/22 1257 Temp: 97.2 degrees F (36.2 degrees C) TempSrc: Temporal Weight: 111.1 kg (245 lb) Height: 1.829 m (6') Pain Presence of Pain: complains of pain/discomfort Pain Location: knee, left, knee, right Select Pain Scale: DVPRS (Defense and Veterans Pain Rating Scale) (Adult- Cognitively Intact) Pain Location: knee, left, knee, right Select Pain Scale: DVPRS (Defense and Veterans Pain Rating Scale) (Adult- Cognitively Intact) Recent Labs No results found for: CRP No results found for: SEDRATE No results found for: WBC, WBCCOUNT, WBCFETAL, HGB, HCT, PLATELET, MCV Past Medical History: Diagnosis Date Diabetes mellitus Essential hypertension, benign Hyperlipidemia OA (osteoarthritis) of knee bilat RA (rheumatoid arthritis) Skin cancer 2013 Past Surgical History: Procedure Laterality Date REVISION ARTHROPLASTY KNEE Left 02/22/2017 ARTHROPLASTY KNEE TOTAL Left 06/23/2015 CHOLECYSTECTOMY 2013 Family History Problem Relation Age of Onset Breast Cancer Mother Hypertension Mother Heart Disease - Other Father Hypertension Father Diabetes Father Social History Socioeconomic History Marital status: Single Tobacco Use Smoking status: Former Smoker Quit date: 02/08/1983 Years since quittin.9 Smokeless tobacco: Former User Quit date: 02/08/2003 Substance and Sexual Activity Alcohol use: No Drug use: No Current Outpatient Medications: amLODIPine 10 MG Tab tablet, Take 10 mg by mouth., Disp: , Rfl: aspirin EC [address], Take 81 mg by mouth daily., Disp: , Rfl: atorvastatin 10 MG Tab tablet, Take by mouth., Disp: , Rfl: benazepril 20 MG Tab, , Disp: , Rfl: carveDILOL 6.25 MG tablet, , Disp: , Rfl: clonazePAM 1 MG tablet, , Disp: , Rfl: Multiple Vitamins-Minerals (PRESERVISION AREDS PO), Take by mouth., Disp: , Rfl: omeprazole [address] capsule, , Disp: , Rfl: propafenone 150 MG tablet, Take by mouth., Disp: , Rfl: traZODone 50 MG tablet, , Disp: , Rfl: warfarin 5 MG tablet, , Disp: , Rfl: acetaminophen 500 MG tablet, Take 500 mg by mouth every 6 hours as needed for Mild Pain., Disp: , Rfl: Allergies Allergen Reactions Iodine Swelling Mouth swelled shut Penicillin G Hives Shellfish Allergy Swelling Sulfa Antibiotics Swelling documented in this [facility]02-09-2022 Evaluation note* Encounter Date Diagnosis Assessment Notes Treatment Notes Treatment Clinical Notes Oct, Choledocholithiasis (ICD-10 - K80.50) Oct, Pancreatic cyst (ICD -10 - K86.2) [facility] Other Evaluation + Plan note No data available for this section [facility] evaluation note* Diagnosis Right knee pain, unspecified chronicity- Primary Pain in prosthetic joint, sequela documented [facility]* Diagnosis Preop testing- Primary Preoperative examination, unspecified Abnormal coagulation profile Abnormal coagulation profile Pre-op testing Preoperative examination, unspecified Osteoarthritis of right knee, unspecified osteoarthritis type Acute postoperative pain of right knee Restless leg syndrome Restless legs syndrome (RLS) Stage 3a chronic kidney disease S/P total knee arthroplasty, right Paroxysmal atrial fibrillation Atrial fibrillation Type 2 diabetes mellitus without complication, without long-term current use of insulin Arrhythmia Cardiac dysrhythmia, unspecified Gastroesophageal reflux disease without esophagitis Esophageal reflux Mixed hyperlipidemia Hyponatremia Hyposmolality and/or hyponatremia documented in this encounter [facility] noteNo InformationNort [facility] Other Evaluation note* Diagnosis Hx of total knee arthroplasty, right- Primary [facility]* Diagnosis Hx of total knee arthroplasty, right- Primary [facility]N/[facility] Evaluation note* Diagnosis Hx of total knee arthroplasty, right- Primary [facility]* Diagnosis 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- Primary Age-related nuclear cataract of both eyes Dry eyes Unspecified tear film insufficiency documented in this encounter [facility] HealthcareHistory general Narrative - Reported* Type Description Date Medical History hyperlipidemia Medical History GERD Medical History HTN Medical History a.fib Medical History recurrent choledocholithiasis Surgical History LEFT KNEE Surgical History CHOLECYSTECTOMY 2012 Hospitalization History see above [facility] Other History general Narrative - Reported* Type Description Date Medical History Adrenal nodule Medical History Osteoarthritis of right knee Medical History Gastro-esophageal re flux disease with esophagitis, without bleeding Medical History Obstructive sleep apnea Medical History Non-rheumatic mitral regurgitati on Medical History Essential hypertension Medical History Hyperlipidemia, mixed Medical History Stage 3a chronic kidney disease (CKD) Medical History Controlled type 2 diabetes darian tripathi with hyperglycemia Medical History Paroxysmal atrial fibrillation Medical History Choking due to food in larynx, i nitial encounter Medical History Dysphagia, pharyngoesophageal Medical History Hypertensive chronic kidney disease with stage 1 through stage 4 chronic kidney disease, or unspecified chronic kidney disease Medical History Anemia Medical History Hepatic steatosis Medical History Enterobacter sepsis Medical History At high risk for falls Medical History Depression screening Medical History Osteoarthritis of knees, bilater al Medical History Elevated transaminase level Medical History Retained cholelithiasis followin g cholecystectomy Medical History Pre-operative examination for in ternal medicine Medical History Abdominal pain, RUQ Medical History Periodic limb movement disorder (PLMD) Medical History Diastolic dysfunction with chron ic heart failure Medical History Pancreatic pseudocyst Medical History Renal cyst, right Medical History obesity Surgical History Arthroscopy of left knee 2007 Surgical History CHOLECYSTECTOMY 2012 Surgical History Amputation of ring finger left hand 1969 Surgical History ERCP stint removal 2012 Surgical History Cardio-version (A-Fib) 2012 Surgical History Cardio-version (A-Fib) 2013 Surgical History ERCP (stone removal) 2014 Surgical History ERCP w/ stone removal 10/2022 Hospitalization History see above [facility] Other History general Narrative - Reported* Type Description Date Medical History Adrenal nodule Medical History Osteoarthritis of right knee Medical History Gastro-esophageal re flux disease with esophagitis, without bleeding Medical History Obstructive sleep apnea Medical History Non-rheumatic mitral regurgitati on Medical History Essential hypertension Medical History Hyperlipidemia, mixed Medical History Stage 3a chronic kidney disease (CKD) Medical History Controlled type 2 diabetes darian tripathi with hyperglycemia Medical History Paroxysmal atrial fibrillation Medical History Choking due to food in larynx, i nitial encounter Medical History Dysphagia, pharyngoesophageal Medical History Hypertensive chronic kidney disease with stage 1 through stage 4 chronic kidney disease, or unspecified chronic kidney disease Medical History Anemia Medical History Hepatic steatosis Medical History Enterobacter sepsis Medical History At high risk for falls Medical History Depression screening Medical History Osteoarthritis of knees, bilater al Medical History Elevated transaminase level Medical History Retained cholelithiasis followin g cholecystectomy Medical History Pre-operative examination for in ternal medicine Medical History Abdominal pain, RUQ Medical History Periodic limb movement disorder (PLMD) Medical History Diastolic dysfunction with chron ic heart failure Medical History Pancreatic pseudocyst Medical History Renal cyst, right Medical History obesity Medical History Subarachnoid hemorrhage 12/2022 Surgical History Arthroscopy of left knee 2008 Surgical History CHOLECYSTECTOMY 2012 Surgical History Amputation of ring finger left hand 1970 Surgical History ERCP stint removal 2012 Surgical History Cardio-version (A-Fib) 2012 Surgical History Cardio-version (A-Fib) 2013 Surgical History ERCP (stone removal) 2014 Surgical History ERCP w/ stone removal 10/2022 Hospitalization History see above [facility] Other History general Narrative - Reported* Type Description Date Medical History Adrenal nodule Medical History Osteoarthritis of right knee Medical History Gastro-esophageal re flux disease with esophagitis, without bleeding Medical History Obstructive sleep apnea Medical History Non-rheumatic mitral regurgitati on Medical History Essential hypertension Medical History Hyperlipidemia, mixed Medical History Stage 3a chronic kidney disease (CKD) Medical History Controlled type 2 diabetes melli tus with hyperglycemia Medical History Paroxysmal atrial fibrillation Medical History Choking due to food in larynx, i nitial encounter Medical History Dysphagia, pharyngoesophageal Medical History Hypertensive chronic kidney disease with stage 1 through stage 4 chronic kidney disease, or unspecified chronic kidney disease Medical History Anemia Medical History Hepatic steatosis Medical History Enterobacter sepsis Medical History At high risk for falls Medical History Depression screening Medical History Osteoarthritis of knees, bilater al Medical History Elevated transaminase level Medical History Retained cholelithiasis followin g cholecystectomy Medical History Pre-operative examination for in ternal medicine Medical History Abdominal pain, RUQ Medical History Periodic limb movement disorder (PLMD) Medical History Diastolic dysfunction with chron ic heart failure Medical History Pancreatic pseudocyst Medical History Renal cyst, right Medical History obesity Medical History Subarachnoid hemorrhage 12/2022 Surgical History Arthroscopy of left knee 2007 Surgical History CHOLECYSTECTOMY 2012 Surgical History Amputation of ring finger left hand 1970 Surgical History ERCP stint removal 2012 Surgical History Cardio-version (A-Fib) 2012 Surgical History Cardio-version (A-Fib) 2013 Surgical History ERCP (stone removal) 2014 Surgical History ERCP w/ stone removal 10/2022 Surgical History Colonoscopy 2020 Hospitalization History see above [facility] Other Progress note No data available for this section [facility] reason for referral (narrative)* Name Reason for referral NA NA Dept. [facility] Dermatology [facility] for visit Narrative* Auth/Cert Specialty Diagnoses / Procedures Referred By Contac t Referred To Contact Diagnoses Osteoarthritis of right knee, unspecified osteoarthritis type Osteoarthritis of right knee, unspecified osteoarthritis type [M17.11] Procedures [place] TOTAL KNEE ARTHROPLASTY ARTHROPLASTY KNEE TOTAL Pastor Bedoya MD [address] [place] [phone] Referral ID Status Reason Start Date Expiration Date Visits Re quested Visits Authorized [id number] 02/01/2022 1 1 [facility] Summary Purpose Family History No Family History Records FoundNo Family History Records FoundNo Family History Records FoundNo Family History Records FoundNo Family History Records FoundNo Family History Records FoundNo Family History Records FoundNo Family History Records FoundNo Family History Records FoundNo Family History Records FoundNo Family History Records FoundNo Family History Records Found Advance Directives No Advanced Directives Records FoundLatest Code Status on File Code Status Date Activated Date Inactivated Comments Full Code 03/15/2022 4:44 PM Latest Code Status on File Code Status Date Activated Date Inactivated Comments Full Code 03/15/2022 4:44 PM Reason for Referral Status Reason Specialty Diagnoses / Procedures Referred By Contact Referred To Contact New Request Diagnoses History of revision of total replacement of left knee joint Procedures XR KNEE LEFT 3 VIEWS Azul Rachel, DEQUAN-TOBI [address] [place] [phone] Specialty Diagnoses / Procedures Referred By Contac t Referred To Contact Diagnoses Pain in prosthetic joint, sequela Procedures XR KNEE LEFT 3 VIEWS Pastor Bedoya MD [address] [place] [phone] Referral ID Status Reason Start Date Expiration Date V isits Requested Visits Authorized [id number] New Request 2022 02/15/2023 1 1 Specialty Diagnoses / Procedures Referred By Contac t Referred To Contact Diagnoses Right knee pain, unspecified chronicity Procedures XR KNEE RIGHT 4+ VIEWS Pastor Bedoya MD [address] [place] [phone] Referral ID Status Reason Start Date Expiration Date V isits Requested Visits Authorized [id number] New Request 01/15/2022 02/09/2023 1 1 Specialty Diagnoses / Procedures Referred By Contac t Referred To Contact Social Work Diagnoses Restless leg syndrome Stage 3a chronic kidney disease S/P total knee arthroplasty, right Paroxysmal atrial fibrillation Type 2 diabetes mellitus without complication, without long-term current use of insulin Domenico Ferguson MD [address] [place] [address] Referral ID Status Reason Start Date Expiration Date V isits Requested Visits Authorized [id number] New Request 03/16/2022 04/10/2023 1 1 Specialty Diagnoses / Procedures Referred By Contac t Referred To Contact Diagnoses Acute postoperative pain of right knee Samantha Miner [address] [place] [phone] Referral ID Status Reason Start Date Expiration Date V isits Requested Visits Authorized [id number] New Request 03/15/2022 04/09/2023 1 1 Scheduling Instructions . Specialty Diagnoses / Procedures Referred By Contac t Referred To Contact Physical Therapy Diagnoses Hx of total knee arthroplasty, right Azul Rachel, MANAGER [employer] STRUCTURE MECHANIC [address] [place] [address] [facility] Physical Therapy [address] [place] [address] Referral ID Status Reason Start Date Expiration Date V isits Requested Visits Authorized [id number] New Request 04/08/2022 05/03/2023 1 1 Specialty Diagnoses / Procedures Referred By Contac t Referred To Contact Diagnoses Hx of total knee arthroplasty, right Procedures XR KNEE RIGHT 3 VIEWS Azul Rachel, MANAGER [employer] STRUCTURE MECHANIC [address] [place] [address] Referral ID Status Reason Start Date Expiration Date V isits Requested Visits Authorized [id number] New Request 03/31/2022 04/25/2023 1 1 Specialty Diagnoses / Procedures Referred By Contac t Referred To Contact Diagnoses Hx of total knee arthroplasty, right Procedures XR KNEE RIGHT 3 VIEWS Pastor Bedoya MD [address] [place] [address] Referral ID Status Reason Start Date Expiration Date V isits Requested Visits Authorized [id number] New Request 07/02/2022 07/27/2023 1 1 Specialty Diagnoses / Procedures Referred By Bret chan Referred To Contact Diagnoses Hx of total knee arthroplasty, right Procedures XR BONE LENGTH STUDY Pastor Bedoya MD [address] [place] [address] Referral ID Status Reason Start Date Expiration Date V isits Requested Visits Authorized [id number] New Request 07/02/2022 07/27/2023 1 1 Referral ID Status Reason Start Date Expiration Date V isits Requested Visits Authorized [id number] New Request 03/15/2023 04/08/2024 1 1 History of Present Illness * Azul Rachel, MANAGER [employer] STRUCTURE MECHANIC - 03/20/2020 11:20 AM EDT HPI: Patient is here today for evaluation of their operative knee. He is status post total knee arthroplasty. He is about 3 year out, reports that he is doing well and is pleased with the outcome of the intervention. The knee feels better now than it did before, and he is not having any new symptoms with it. PHYSICAL EXAM: The operative lower extremity is soft, nontender, full and supple motion. No pain, no impingement. No instability. He has full return of motion, 0-120 degrees, stable examination to varus and valgus stress with normal balance throughout the arc of motion. The contralateral extremity has full motion, normal stability, no tenderness. Both extremities have normal neurovascular status.Skin is otherwise intact. DIAGNOSTIC STUDIES/INTERPRETATION: Plain film radiographs reviewed. He has a Cemented total knee arthroplasty in good position and alignment. No evidence of prosthetic implant loosening or migration. IMPRESSION: Stable status post total knee arthroplasty, doing well. PLAN: I am pleased with the outcome of intervention. He has made an excellent recovery. I expect continued improvement in strength and mobility moving forward. I recommend followup in 2 years for repeat clinical and radiographic examination or sooner if any new symptoms develop. Tylenol may be usedto manage any aches and pains as needed. He will call with any questions or concerns in the meantime. Greater than 15 minutes time was spent in review of the medical records, review of previous imaging, and more than 50% of that time was spent on face to face time with patient. EDYTA Ayala I have reviewed the findings of the clinical client support analyst and agree with their assessment. Ortho Nurse Established Patient Intake Room#: 5 Date: 03/20/2020 11:10 AM Patient: Tito Goncalves MR#: [id number] : 1945 Age: 75 y.o. 3 yr f/u L knee revision. Pt states that about the last couple months when moving from a lying postion in bed and turning, he has severe pain in bilat knees, which goes away once he is repositioned. Otherwise he reports he has been doing well. Referring Physician: Azul Rachel APRN-CNP Insurance: Payor: MEDICARE / Plan: MEDICARE A AND B / Product Type: *No Product type* / Chief Complaint Patient presents with Left Knee - Follow-up Visit Vitals Temp 97.5 F (36.4 C) (Temporal) Ht 1.829 m (6') Wt 112.5 kg (248 lb) BMI 33.63 kg/m Pain Recent Labs No results found for: CRP No results found for: SEDRATE No results found for: WBC, WBCCOUNT, WBCFETAL, HGB, HCT, PLATELET, MCV History Past Medical History: Diagnosis Date Skin cancer 2013 Diabetes mellitus Essential hypertension, benign Hyperlipidemia OA (osteoarthritis) of knee bilat RA (rheumatoid arthritis) Past Surgical History: Procedure Laterality Date REVISION ARTHROPLASTY KNEE Left 02/22/2017 ARTHROPLASTY KNEE TOTAL Left 06/23/2015 CHOLECYSTECTOMY 2012 Family History: His family history includes Breast Cancer in his mother; Diabetes in his father; Heart Disease - Other in his father; Hypertension in his father and mother. Social History: His reports that he quit smoking about 37 years ago. He quit smokeless tobacco use about 17 years ago. He reports that he does not drink alcohol or use drugs. Outpatient Medications Prior to Visit Medication Sig Dispense Refill amLODIPine 10 MG Tab tablet Take 10 mg by mouth. aspirin EC [address] Take 81 mg by mouth daily. atorvastatin 10 MG Tab tablet Take by mouth. benazepril 20 MG Tab carveDILOL 6.25 MG tablet celecoxib 200 MG Cap capsule Take 200 mg by mouth daily. clonazePAM 0.5 MG Tab tablet 1 mg. hydroCHLOROthiazide 12.5 MG tablet Multiple Vitamins-Minerals (MULTIVITAMIN ADULT PO) Take by mouth. warfarin 5 MG tablet diltiazem 120 MG Cap SR 24HR capsule XL metformin 500 MG Tab tablet Take 500 mg by mouth 2 times daily with meals. omeprazole [address] capsule No facility-administered medications prior to visit. Current Outpatient Medications: amLODIPine 10 MG Tab tablet, Take 10 mg by mouth., Disp: , Rfl: aspirin EC [address], Take 81 mg by mouth daily., Disp: , Rfl: atorvastatin 10 MG Tab tablet, Take by mouth., Disp: , Rfl: benazepril 20 MG Tab, , Disp: , Rfl: carveDILOL 6.25 MG tablet, , Disp: , Rfl: celecoxib 200 MG Cap capsule, Take 200 mg by mouth daily. , Disp: , Rfl: clonazePAM 0.5 MG Tab tablet, 1 mg., Disp: , Rfl: hydroCHLOROthiazide 12.5 MG tablet, , Disp: , Rfl: Multiple Vitamins-Minerals (MULTIVITAMIN ADULT PO), Take by mouth., Disp: , Rfl: warfarin 5 MG tablet, , Disp: , Rfl: diltiazem 120 MG Cap SR 24HR capsule XL, , Disp: , Rfl: metformin 500 MG Tab tablet, Take 500 mg by mouth 2 times daily with meals., Disp: , Rfl: omeprazole [address] capsule, , Disp: , Rfl: Allergies: He is allergic to iodine; penicillin g; shellfish allergy; and sulfa antibiotics. * Birgit Chaparro LPN - 03/20/2020 11:20 AM EDT Ortho Nurse Established Patient Intake Room#: 5 Date: 03/20/2020 11:10 AM Patient: Tito Goncalves MR#: [id number] : 1945 Age: 75 y.o. 3 yr f/u L knee revision. Pt states that about the last couple months when moving from a lying postion in bed and turning, he has severe pain in bilat knees, which goes away once he is repositioned. Otherwise he reports he has been doing well. Referring Physician: Azul Rachel APRN-CNP Insurance: Payor: MEDICARE / Plan: MEDICARE A AND B / Product Type: *No Product type* / Chief Complaint Patient presents with Left Knee - Follow-up Visit Vitals Temp 97.5 F (36.4 C) (Temporal) Ht 1.829 m (6') Wt 112.5 kg (248 lb) BMI 33.63 kg/m Pain Recent Labs No results found for: CRP No results found for: SEDRATE No results found for: WBC, WBCCOUNT, WBCFETAL, HGB, HCT, PLATELET, MCV History Past Medical History: Diagnosis Date Skin cancer 2013 Diabetes mellitus Essential hypertension, benign Hyperlipidemia OA (osteoarthritis) of knee bilat RA (rheumatoid arthritis) Past Surgical History: Procedure Laterality Date REVISION ARTHROPLASTY KNEE Left 02/22/2017 ARTHROPLASTY KNEE TOTAL Left 06/23/2015 CHOLECYSTECTOMY 2012 Family History: His family history includes Breast Cancer in his mother; Diabetes in his father; Heart Disease - Other in his father; Hypertension in his father and mother. Social History: His reports that he quit smoking about 37 years ago. He quit smokeless tobacco use about 17 years ago. He reports that he does not drink alcohol or use drugs. Outpatient Medications Prior to Visit Medication Sig Dispense Refill amLODIPine 10 MG Tab tablet Take 10 mg by mouth. aspirin EC [address] Take 81 mg by mouth daily. atorvastatin 10 MG Tab tablet Take by mouth. benazepril 20 MG Tab carveDILOL 6.25 MG tablet celecoxib 200 MG Cap capsule Take 200 mg by mouth daily. clonazePAM 0.5 MG Tab tablet 1 mg. hydroCHLOROthiazide 12.5 MG tablet Multiple Vitamins-Minerals (MULTIVITAMIN ADULT PO) Take by mouth. warfarin 5 MG tablet diltiazem 120 MG Cap SR 24HR capsule XL metformin 500 MG Tab tablet Take 500 mg by mouth 2 times daily with meals. omeprazole [address] capsule No facility-administered medications prior to visit. Current Outpatient Medications: amLODIPine 10 MG Tab tablet, Take 10 mg by mouth., Disp: , Rfl: aspirin EC [address], Take 81 mg by mouth daily., Disp: , Rfl: atorvastatin 10 MG Tab tablet, Take by mouth., Disp: , Rfl: benazepril 20 MG Tab, , Disp: , Rfl: carveDILOL 6.25 MG tablet, , Disp: , Rfl: celecoxib 200 MG Cap capsule, Take 200 mg by mouth daily. , Disp: , Rfl: clonazePAM 0.5 MG Tab tablet, 1 mg., Disp: , Rfl: hydroCHLOROthiazide 12.5 MG tablet, , Disp: , Rfl: Multiple Vitamins-Minerals (MULTIVITAMIN ADULT PO), Take by mouth., Disp: , Rfl: warfarin 5 MG tablet, , Disp: , Rfl: diltiazem 120 MG Cap SR 24HR capsule XL, , Disp: , Rfl: metformin 500 MG Tab tablet, Take 500 mg by mouth 2 times daily with meals., Disp: , Rfl: omeprazole [address] capsule, , Disp: , Rfl: Allergies: He is allergic to iodine; penicillin g; shellfish allergy; and sulfa antibiotics. documented in this encounter Assessments Diagnosis History of revision of total replacement of left knee joint Additional Source Comments (unrecognized sect ion and content) No Status Records FoundNo Status Records FoundNo Status Records FoundNo Status Records FoundNo Status Records FoundNo Status Records FoundNo Status Records FoundNo Status Records FoundNo Status Records FoundNo Status Records FoundNo Status Records FoundNo Status Records Found INFORMATION SOURCE (unrecogn ized section and content) DATE CREATED AUTHOR 03/21/2018 [facility] DATE CREATED AUTHOR AUTHOR'S ORGANIZ ATION 06/15/2019 [facility] DATE CREATED AUTHOR AUTHOR'S ORGANIZ ATION 11/13/2021 [facility] DATE CREATED AUTHOR AUTHOR'S ORGANIZ ATION 03/25/2022 [facility] DATE CREATED AUTHOR AUTHOR'S ORGANIZ ATION 05/04/2022 [facility] DATE CREATED AUTHOR AUTHOR'S ORGANIZ ATION 10/04/2022 [facility] DATE CREATED AUTHOR AUTHOR'S ORGANIZ ATION 02/02/2023 [facility] DATE CREATED AUTHOR AUTHOR'S ORGANIZ ATION 03/05/2023 [facility] DATE CREATED AUTHOR AUTHOR'S ORGANIZ ATION 03/20/2023 [facility] DATE CREATED AUTHOR AUTHOR'S ORGANIZ ATION 07/12/2023 [facility] DATE CREATED AUTHOR AUTHOR'S ORGANIZ ATION 10/29/2023 [facility] DATE CREATED AUTHOR AUTHOR'S ORGANIZ ATION 10/31/2023 [facility] Reason for Visit (unrecogniz ed section and content) Reason Comments Follow-up Status Reason Specialty Diagnoses / Procedures Referred By Contact Referred To Contact New Request Diagnoses History of revision of total replacement of left knee joint Procedures XR KNEE LEFT 3 VIEWS Azul Rachel, MANAGER [employer] STRUCTURE MECHANIC [address] [place] [address] Reason Comments Pain Specialty Diagnoses / Procedures Referred By Contac t Referred To Contact Diagnoses Pain in prosthetic joint, sequela Procedures XR KNEE LEFT 3 VIEWS Pastor Bedoya MD [address] [place] [address] Referral ID Status Reason Start Date Expiration Date V isits Requested Visits Authorized [id number] New Request 2022 02/15/2023 1 1 Specialty Diagnoses / Procedures Referred By Contac t Referred To Contact Diagnoses Right knee pain, unspecified chronicity Procedures XR KNEE RIGHT 4+ VIEWS Pastor Bedoya MD [address] [place] [address] Referral ID Status Reason Start Date Expiration Date V isits Requested Visits Authorized [id number] New Request 01/15/2022 02/09/2023 1 1 Specialty Diagnoses / Procedures Referred By Contac t Referred To Contact Diagnoses Hx of total knee arthroplasty, right Procedures XR KNEE RIGHT 3 VIEWS Azul Rachel, MANAGER [employer] STRUCTURE MECHANIC [address] [place] [address] Referral ID Status Reason Start Date Expiration Date V isits Requested Visits Authorized [id number] New Request 03/31/2022 04/25/2023 1 1 Reason Comments Post Op Visit Specialty Diagnoses / Procedures Referred By Contac t Referred To Contact Diagnoses Hx of total knee arthroplasty, right Procedures XR KNEE RIGHT 3 VIEWS Pastor Bedoya MD [address] [place] [address] Referral ID Status Reason Start Date Expiration Date V isits Requested Visits Authorized [id number] New Request 07/02/2022 07/27/2023 1 1 Referral ID Status Reason Start Date Expiration Date V isits Requested Visits Authorized [id number] New Request 03/15/2023 04/08/2024 1 1 Reason Comments Retinal Injection Care Teams (unrecognized sec tion and content) State Archivist Relationship Specialty Start Date End Date Augustine Metz, DO [address] [place] [address] PCP - General Internal Medicine 01/24/17 State Archivist Relationship Specialty Start Date End Date Augustine Metz DO [address] [place] [address] PCP - General Internal Medicine 01/24/17 State Archivist Relationship Specialty Start Date End Date Augustine Metz, DO [address] [place] [address] PCP - General Internal Medicine 01/24/17 State Archivist Relationship Specialty Start Date End Date Augustine Metz DO [address] [place] [address] PCP - General Internal Medicine 01/24/17 State Archivist Relationship Specialty Start Date End Date Augustine Metz DO [address] [place] [address] PCP - General Internal Medicine 01/24/17 State Archivist Relationship Specialty Start Date End Date Augustine Metz, DO [address] [place] [address] PCP - General Internal Medicine 01/24/17 State Archivist Relationship Specialty Start Date End Date Augustine Metz DO [address] [place] [address] PCP - General Internal Medicine 01/24/17 State Archivist Relationship Specialty Start Date End Date Augustine Metz DO [address] [facility] [place] [place] [address] PCP - General Internal Medicine 01/24/17 State Archivist Relationship Specialty Start Date End Date Augustine Metz DO [address] [facility] [place] [address] PCP - General Internal Medicine 01/24/17 State Archivist Relationship Specialty Start Date End Date Augustine Metz MD [address] [place] [phone] PCP - General Internal Medicine 06/02/23 State Archivist Relationship Specialty Start Date End Date Augustine Metz MD [address] [place] [phone] PCP - General Internal Medicine 06/02/23 Scheduled Active and Recently Administ ered Medications (unrecognized section and content) Medication Order 03/14/2022 03/15/2022 03/16/2022 acetaminophen (TYLENOL) tablet 1,000 mg (COMPLETED) 1,000 mg, Oral, ONCE, 1 dose, On Tue03/15/22 at 0900, Administer 1 hour preop., Pre-op/Pre-Proc 0932 (Given - Provider: Araseli Ron RN) acetaminophen (TYLENOL) tablet 1,000 mg 1,000 mg, Oral, EVERY 6 HOURS NON-STANDARD, First dose on Tue03/15/22 at 2000, Until Discontinued, , Post-op/Post-Proc 2104 (Given - Provider: Birgit Thakur RN) 0309 (Given - Provider: Birgit Thakur RN)0811 (Given - Provider: Kirsten Crawford, RN)1449 (Given - Provider: Kirsten Crawford, RN) amLODIPine (NORVASC) tablet 2.5 mg (CANCELED) 2.5 mg, Oral, EVERY 12 HOURS, First dose on Tue03/15/22 at 2100, Until Discontinued, Hold for blood pressure less than 1 20 mmHg 2105 (Given - Provider: Birgit Thakur RN - Comment: 125/69 M 92 HR 78) amLODIPine (NORVASC) tablet 5 mg 5 mg, Oral, EVERY 12 HOURS, First dose (after last modification) on Tue03/16/22 at 0815, Until Discontinued, Hold for blood pressure less than 1 20 mmHg 823 (Given - Provid er: Kirsten Crawford, RN) atorvastatin (LIPITOR) tablet 10 mg 10 mg, Oral, DAILY AT BEDTIME, First dose on Tue03/15/22 at 2100, Until Discontinued 2106 (Given - Provider: Birgit Thakur RN) carveDILOL (COREG) tablet 6.25 mg 6.25 mg, Oral, EVERY 12 HOURS, First dose on Tue03/15/22 at 2100, Until Discontinued, 2106 (Given - Provider: Birgit Thakur RN - Comment: 125/69 M 92 HR 78) 0810 (Given - Provider: Kirsten Crawford, RN) ceFAZolin (ANCEF) 2 g in dextrose 100 mL premix IVPB (COMPLETED) 2 g, Intravenous, Administer over 30 Minutes, EVERY 8 HOURS NON-STANDARD, 2 doses, First dose on Tue03/15/22 at 2300, Last dose on Tue03/16/22 at 0700, Post-op/Post-Proc 2357 ($$New Bag$$ - Provider: Birgit Thakur RN) 0309 (Stopped - Provider: Birgit Thakur RN)0814 ($$New Bag$$ - Provider: Kirsten Crawford, RN)0845 (Stopped - Provider: Regina Rios RN) clonazePAM (KLONOPIN) tablet 0.5 mg 0.5 mg, Oral, DAILY AT BEDTIME, First dose on Tue03/15/22 at 2100, Until Discontinued, If given by enteral tube: Disperse the crushed tablet in at least 10 mL of water. (Using at least 10 mL helps prevent adherence of the medication to the plastic tube.) Flush tube with at least 10 mL of water before and after. Hold if decreased respiratory drive or mental status after anesthesia 2104 (Given - Provider: Birgit Thakur RN) dexAMETHasone (DECADRON) injection 10 mg (COMPLETED) 10 mg, Intravenous, ONCE, 1 dose, On Tue03/16/22 at 1400, 24 hours post op, Post-op/Post-Proc 1450 (Given - Provid er: Kirsten Crawford RN) docusate (COLACE) capsule 100 mg 100 mg, Oral, 2 TIMES DAILY, First dose on Tue03/15/22 at 1800, Until Discontinued, Post-op/Post-Proc 1807 (Given - Provider: Kirsten Crawford RN) 0810 (Given - Provider: Kirsten Crawford RN)1700 (Canceled Entry - Provider: System Discharge - Comment: Automatically canceled at discontinue of medication order) ferrous sulfate tablet 325 mg 325 mg, Oral, DAILY, First dose on Tue03/16/22 at 0900, Until Discontinued 0811 (Given - Provid er: Kirsten Crawford RN) glucose chewable tablet CHEW 16-32 g(Linked Group 1) 16-32 g (4-8 tablet), Oral, SEE ADMIN INSTRUCTIONS, Starting on Tue03/15/22 at 1254, Until Tue03/16/22 at 1703, If patient is alert and able to tolerate oral medications and blood glucose 69 - 50 mg/dL: give 4 chew tabs, if blood glucose 49 - 20 mg/dL: give 8 chew tabs. Notify physician and repeat blood glucose in 20 minutes. May repeat treatment x 1 if blood glucose less than 60 mg/dL. For alternative treatment options (juice, etc.) refer to the hypoglycemia management protocol on [employer]: [id number] Management Protocol insulin regular (HumuLIN R;NovoLIN R) injection(Linked Group 1) Subcutaneous, 4 TIMES DAILY WITH MEALS & AT BEDTIME, First dose on Tue03/15/22 at 1300, Until Discontinued, Sliding Scale parameters: Blood glucose under 70 = call physician; 151 - 200 = 1 units; 201 - 250 = 2 units; 251 - 300 = 3 units; 301 - 350 = 4 units; 351 - 400 = 5 units; Over 400 = call physician. 1421 (Not Given - Provider: Araseli Ron RN - Reason: NPO)1757 (Not Given - Provider: Araseli Ron RN - Reason: Patient/family refused)2108 (Given - Provider: Birgit Thakur RN - Comment: BS 206 2u givenpeanut butter crackers at bedside) 0813 (Given - Provider: Kirsten Crawford, RN)1127 (Given - Provider: Kirsten Crawford, RN)1700 (Canceled Entry - Provider: System Discharge - Comment: Automatically canceled at discontinue of medication order) lisinopril (PRINIVIL) tablet 10 mg 10 mg, Oral, DAILY, First dose on Tue03/16/22 at 0900, Until Discontinued, Hold if blood pressure less than 1 20 mmHg 0810 (Given - Provid er: Kirsten Crawford RN) pantoprazole (PROTONIX) tablet DR 40 mg 40 mg, Oral, DAILY EARLY EVENING, First dose on Tue03/15/22 at 1800, Until Discontinued, Indications: Inpt Stress Ulcer Prophylaxis 175 (Given - Provider: Araseli Ron, ROMAINE) propafenone (RYTHMOL) tablet 150 mg 150 mg, Oral, EVERY 8 HOURS, First dose (after last modification) on Tue03/15/22 at 1800, Until Discontinued, Administer every 8 hours according with patient home schedule if possible 1753 (Given - Provider: Araseli Ron RN) 0309 (Given - Provider: Birgit Thakur RN)1448 (Given - Provider: Kirsten Crawford RN - Comment: per pt request to get back on home schedule) ropivacaine (NAROPIN) 1 % 400 mg, EPINEPHrine PF (ADRENALIN) 1 MG/ML 1 mg, ketorolac (TORADOL) 30 MG/ML 30 mg, cloNIDine 100 MCG/ML 226 mcg, sodium chloride 0.9% 45 mL 89.26 mL (total volume) (COMPLETED) Intra-articular, INTRA-OP ONCE, 1 dose, Starting on Tue03/15/22 at 1442, Until Tue03/15/22 at 1442, 89.26 mL, To be mixed by pharmacy NOT for IV use, Intra-op/Intra-Proc 1442 (Given - Provider: Amari Quesada RN) tranexamic acid (LYSTEDA) tablet 1,950 mg (COMPLETED) 1,950 mg, Oral, ONCE, 1 dose, On Tue03/15/22 at 0900, Administer 2 hours preop, Pre-op/Pre-Proc 0932 (Given - Provider: Araseli Ron RN) warfarin (COUMADIN) tablet 5 mg (COMPLETED) 5 mg, Oral, ONCE, 1 dose, On Tue03/15/22 at 1830, 1835 (Given - Provider: Kirsten Crawford, RN) Continuous Medication Order 03/14/2022 03/15/2022 03/16/2022 ropivacaine (NAROPIN) 0.2 % On-Q pump 750 mL Surgical Site, CONTINUOUS, Starting on Tue03/15/22 at 1645, Until Tue03/16/22 at 1703, Recovery to Continue 1656 ($$New Bag$$ - Provider: Fadumo Keita RN)1956 (Rate/Dose Verify - Provider: Birgit Thakur RN)2356 (Rate/Dose Verify - Provider: Birgit Thakur RN) 0310 (Rate/Dose Verify - Provider: Birgit Thakur RN)0715 (Rate/Dose Verify - Provider: Regina Rios RN - Comment: dial set at 2mg/mlverified during bedside report)1146 (Rate/Dose Verify - Provider: Regina Rios RN - Comment: dial set at 2ml/hr) sodium chloride 0.9% IV solution (CANCELED) Intravenous, at 100 mL/hr, CONTINUOUS, Starting on Tue03/15/22 at 0900, Until Tue03/16/22 at 0904, Pre-op/Pre-Proc 0932 ($$New Bag$$ - Provider: Araseli Ron RN)1400 (Pump Association - Provider: Araseli Ron RN)1450 ($$New Bag$$ - Provider: Pankaj Eric APRN-[employer] ADVISOR)1606 (Paused - Provider: Chino Puga CRNA - Comment: Switch to gravity)1607 (Restarted - Provider: Chino Puga CRNA)195 (Stopped - Provider: Birgit Thakur RN - Comment: Other order of NS @ 100ml/hr is infusing. Dup order) 0730 (Stopped - Provider: Regina Rios RN) sodium chloride 0.9% IV solution Intravenous, at 100 mL/hr, CONTINUOUS, Starting on Tue03/15/22 at 1800, Until Tue03/16/22 at 1703, Convert IV to PRN adapter if adequate oral intake, Post-op/Post-Proc 1752 ($$New Bag$$ - Provider: Araseli Ron RN)1956 (Rate/Dose Verify - Provider: Birgit Thakur RN)2356 (Rate/Dose Verify - Provider: Birgit Thakur RN) 0310 ($$New Bag$$ - Provider: Birgit Thakur RN)0715 (Rate/Dose Verify - Provider: Regina Rios, RN)1146 (Stopped - Provider: Regina Rios, RN) PRN Medication Order 03/14/2022 03/15/2022 03/16/2022 bisacodyl (DULCOLAX) suppository 10 mg 10 mg, Rectal, DAILY NEEDED, Starting on Tue03/15/22 at 1750, Until Tue03/16/22 at 1703, constipation, Post-op/Post-Proc ceFAZolin (ANCEF) 2 g in dextrose 100 mL premix IVPB (COMPLETED) 2 g, Intravenous, Administer over 30 Minutes, PUMPMAN TO PROCEDURE, 1 dose, Starting on Tue03/15/22 at 0849, Until Discontinued, Other, Pre-operative antibiotic, For 15 Minutes, Pre-op/Pre-Proc 1440 (Given - Provider: Lambert Eric, MANAGER [facility]) dextrose 10% IV solution 250 mL(Linked Group 1) 250 mL, Intravenous, ADMINISTER DIRECTED, Starting on Tue03/15/22 at 1254, Until Tue03/16/22 at 1703, Blood Glucose LESS THAN 70 mg/dL, If blood sugar is less than 70 mg/dL, give Dextrose 10% (IV Large-bore IV preferred). Administer at a rate of 999 mL/hr. Notify physician and repeat blood sugar in 20 minutes. May repeat dextrose X1 if blood sugar less than 60 mg/ml. If unresponsive call LEAD GENERATION MARKETING MANAGER HYDROmorphone (DILAUDID) injection 0.5 mg 0.5 mg, Intravenous, EVERY 4 HOURS NEEDED, Starting on Tue03/15/22 at 1750, Until Tue03/16/22 at 1703, Severe Pain, Post-op/Post-Proc ondansetron 4mg/2ml (ZOFRAN) injection 4 mg 4 mg, Intravenous, EVERY 4 HOURS NEEDED, Starting on Tue03/15/22 at 1750, Until Tue03/16/22 at 1703, Nausea / Vomiting, Post-op/Post-Proc oxyCODONE (ROXICODONE) tablet 5-10 mg 5-10 mg, Oral, EVERY 4 HOURS NEEDED, Starting on Tue03/15/22 at 1750, Until Tue03/16/22 at 1703, moderate-severe pain, If pain unrelieved with oxycodone, contact pharmacist to enter order for Oxycodone ER 10mg PO Q12H for 3 days, Post-op/Post-Proc senna-docusate (SENOKOT-S) 8.6-50 MG per tablet 2 tablet 2 tablet, Oral, 2 TIMES DAILY NEEDED, Starting on Tue03/15/22 at 1750, Until Tue03/16/22 at 1703, constipation, Post-op/Post-Proc sodium chloride 0.9 % irrigation NEEDED, Starting on Tue03/15/22 at 1443, Until Tue03/16/22 at 1703, Intra-op/Intra-Proc 1443 (Given - Provider: Dominik Bedoya MD - Comment: given to ) sodium phosphate w/sodium biphosphate (FLEETS) enema 1 enema 1 enema, Rectal, DAILY NEEDED, Starting on Tue03/15/22 at 1750, Until Tue03/16/22 at 1703, Refractory Constipation, use per package instructions, Post-op/Post-Proc vancomycin (VANCOCIN) injection NEEDED, Starting on Tue03/15/22 at 1443, Until Tue03/16/22 at 1703, Intra-op/Intra-Proc 1443 (Given - Provider: Dominik Bedoya MD - Comment: given to ) zolpidem (AMBIEN) tablet 5 mg 5 mg, Oral, DAILY AT BEDTIME NEEDED, Starting on Tue03/15/22 at 1750, Until Tue03/16/22 at 1703, Sleep, Post-op/Post-Proc Linked Groups Order Group 1: insulin regular (HumuLIN R;NovoLIN R) injectionJump to med Subcutaneous, 4 TIMES DAILY WITH MEALS & AT BEDTIME, First dose on Tue03/15/22 at 1300, Until Discontinued
Sliding Scale parameters: Blood glucose under 70 = call physician; 151 - 200 = 1 units; 201 - 250 = 2 units; 251 - 300 = 3 units; 301 - 350 = 4 units; 351 - 400 = 5 units; Over 400 = call physician.
And Glucose (POC device) (CANCELED) Routine, 4 TIMES DAILY BEFORE MEALS & AT BEDTIME, First occurrence on Tue03/15/22 at 1530, Until Specified And Glucose (POC device) (CANCELED) Routine, ONE TIME, On Tue03/15/22 at 1255, For 1 occurrence
For all Blood Glucose LESS THAN 70 mg/dL, recheck 20 min after treatment then notify physician. And glucose chewable tablet CHEW 16-32 gJump to med 16-32 g (4-8 tablet), Oral, SEE ADMIN INSTRUCTIONS, Starting on Tue03/15/22 at 1254, Until Tue03/16/22 at 1703
If patient is alert and able to tolerate oral medications and blood glucose 69 - 50 mg/dL: give 4 chew tabs, if blood glucose 49 - 20 mg/dL: give 8 chew tabs. Notify physician and repeat blood glucose in 20 minutes. May repeat treatment x 1 if blood glucose less than 60 mg/dL. For alternative treatment options (juice, etc.) refer to the hypoglycemia management protocol on [employer]: [id number] Management Protocol
And dextrose 10% IV solution 250 mLJump to med 250 mL, Intravenous, ADMINISTER DIRECTED, Starting on Tue03/15/22 at 1254, Until Tue03/16/22 at 1703, Blood Glucose LESS THAN 70 mg/dL
If blood sugar is less than 70 mg/dL, give Dextrose 10% (IV Large-bore IV preferred). Administer at a rate of 999 mL/hr. Notify physician and repeat blood sugar in 20 minutes. May repeat dextrose X1 if blood sugar less than 60 mg/ml. If unresponsive call LEAD GENERATION MARKETING MANAGER
And NOTIFY PHYSICIAN, Blood Glucose LESS THAN 70 mg/dl or greater than 400 mg/dl (CANCELED) Routine, CONTINUOUS, Starting on Tue03/15/22 at 1255, Until Specified
Who to Notify: INVESTMENT OFFICER/Physician
For all Blood Glucose LESS THAN 70 mg/dl, or greater than 400 mg/dl notify INVESTMENT OFFICER/Physician FOR RECORDS PERTAINING TO PATIENTS WHO ARE OR HAVE BEEN ENROLLED IN A CHEMICAL DEPENDENCY/SUBSTANCEABUSE PROGRAM, SOME INFORMATION MAY BE OMITTED. This clinical summary was aggregated from multiple sources. Caution should be exercised in using it in the provision of clinical care. This summary normalizes information from multiple sources, and as a consequence, information in this document may materially change the coding, format and clinical context of patient data. In addition, data may be omitted in some cases. CLINICAL DECISIONS SHOULD BE BASED ON THE PRIMARY CLINICAL RECORDS. [facility]. provides no warranty or guarantee of the accuracy or completeness of information in this document.
[2023-10-31 12:52] LABS: Estimated Average Glucose 148 mg/dL; Glycohemoglobin A1C 6.8 % (4.5-6.2)
== END 2023-10-31 11:29 | disposition home or self-care (01) ==
LOC: LAB 11:30
PROVIDERS: PCP Internal Medicine; Visit Provider Internal Medicine
DX: E11.65 Type 2 diabetes mellitus with hyperglycemia (principal)
CPT/HCPCS: 36415; 83036

== ENCOUNTER 2023-11-25 01:14 | Outpatient (RCR) | payer MEDICARE, OTHER, SELFPAY | END 2023-12-23 13:17 | disposition home or self-care (01) | LOC: MM 01:14 | PROVIDERS: PCP Internal Medicine; Visit Provider Internal Medicine | DX: Z51.81 Encounter for therapeutic drug level monitoring (principal); Z79.01 Long term (current) use of anticoagulants ==

== ENCOUNTER 2023-12-26 00:09 | Outpatient (RCR) | payer MEDICARE, OTHER, SELFPAY | END 2024-01-24 17:52 | disposition home or self-care (01) | LOC: MM 00:09 | PROVIDERS: PCP Internal Medicine; Visit Provider Internal Medicine | DX: Z51.81 Encounter for therapeutic drug level monitoring (principal); Z79.01 Long term (current) use of anticoagulants | CPT/HCPCS: 85610; G0463 ==

== ENCOUNTER 2024-01-18 12:22 | Outpatient (OUT) | payer MEDICARE, OTHER, SELFPAY ==
[2024-01-18 13:03] LABS: Anion Gap 11.1; BUN Creatinine Ratio 11.8; Calcium 8.6 mg/dL (8.5-10.1); Carbon Dioxide 30.4 mmol/L (21.0-32.0); Chloride 103 mmol/L (98-107); Estimated GFR (African America 58 (>=60); Estimated GFR (Non-African Ame 48 (>=60); Glucose 140 mg/dL (74-106); Potassium 4.5 mmol/L (3.5-5.1); Sodium 140 mmol/L (136-145)
[2024-01-18 13:16] LABS: Basophils Percent Auto 0.4 % (0.2-2.0); Eosinophils Absolute Auto 0.1 10^3/uL (0.0-0.7); Eosinophils Percent Auto 2.3 % (0.9-7.0); Hemoglobin 11.7 g/dL (14.0-18.0); Lymphocytes Absolute Auto 1.6 10^3/uL (1.2-3.8); Lymphocytes Percent Auto 33.8 % (20.5-60.0); Mean Corpuscular HGB Conc 31.6 g/dL (29.9-35.2); Mean Corpuscular Hemoglobin 28.3 pg (25.9-34.0); Mean Corpuscular Volume 89.6 fL (80.0-94.0); Mean Platelet Volume 11.4 fL (9.5-13.5); Monocytes Absolute Auto 0.6 10^3/uL (0.3-0.8); Monocytes Percent Auto 11.8 % (1.7-12.0); Neutrophils Absolute Auto 2.5 10^3/uL (1.4-6.5); Neutrophils Percent Auto 51.7 % (43.0-75.0); Platelet Count 186 10^3/uL (150-450); Red Blood Count 4.13 10^6/uL (4.70-6.10); Red Cell Distribution Width 13.6 % (11.0-15.0); White Blood Count 4.8 10^3/uL (4.0-11.0)
== END 2024-01-18 12:23 | disposition home or self-care (01) ==
LOC: LAB 12:24
PROVIDERS: PCP Internal Medicine; Visit Provider Nurse Practitioner Family
DX: I48.0 Paroxysmal atrial fibrillation (principal)
CPT/HCPCS: 36415; 80048; 85025

== ENCOUNTER 2024-01-25 04:35 | Outpatient (RCR) | payer MEDICARE, OTHER, SELFPAY | END 2024-02-24 11:51 | disposition home or self-care (01) | LOC: MM 04:35 | PROVIDERS: PCP Internal Medicine; Visit Provider Internal Medicine | DX: Z51.81 Encounter for therapeutic drug level monitoring (principal); Z79.01 Long term (current) use of anticoagulants ==

== ENCOUNTER 2024-02-16 10:09 | Outpatient (OUT) | payer MEDICARE, OTHER, SELFPAY ==
--- OUTSIDE RECORDS SUMMARY | 2024-02-16 10:23 | XMS_ITS | CCD ---
Author Organization [place] [facility]OM[facility]s include 234 beds at the [facility] Care Team Providers Care Operational Risk Manager Name Role Phone GENE FAJARDO Admitting Unavailable GENE FAJARDO Attending Unavailable AUGUSTINE METZ Primary Care Unavailable RYAN CARDENAS Referring Unavailable Augustine Metz Primary Care Provider [phone] Augustine Metz DO Primary Care Provider [phone] Augustine Metz DO Primary Care Provider Carmen Kahn Unavailable AUGUSTINE METZ Primary Care Physician Augustine Metz DO Primary Care Provider Damari Rojas Unavailable Unavailable Alyssa, Ms. Osman Benites Referring Unavaila arabella Bui, Dr. Macario Kent Attending Unavai lable [...] Consulting Unavailable ISAÍAS, DR PEREZ Admitting Unavailable BALL, DR PEREZ Attending Unavailable WEST, DR CARMEN [...] Care Unavailable MISC, DR LYMAN Admitting Unavailable ZIABBY, DR SANTOS Blackman Consulting Unavailable BALL, DR [...] Care Unavailable BALL, DR PEREZ Attending Unavailable FASHAIKH Tiburcio CHILDRESS Attending Unavailable SHAIKH Tiburcio PRICE Admitting Unavailable BALL, DR PEREZ Primary Care Unavailable Ball Augustine MADDEN Primary Care Provider [phone] VIRGINIE, AZUL Attending Unavailable VIRGINIE, AZUL Referring Unavailable BALL, AUGUSTINE Primary Care Unavailable VIRGINIE, AZUL Attending Unavailable VIRGINIE, AZUL Referring Unavailable BALL, AUGUSTINE Primary Care Unavailable VIRGINIE, AZUL Attending Unavailable VIRGINIE, AZUL Referring Unavailable BALL, AUGUSTINE Primary Care Unavailable SELF, SELF Referring Unavailable BALL, AUGUSTINE Primary Care Unavailable PASTOR BEDOYA Attending Unavailable ELKE, PASTOR Referring Unavailable BALL, AUGUSTINE Primary Care Unavailable PASTOR BEDOYA Attending Unavailable VIRGINIE, AZUL Attending Unavailable SELF, SELF Referring Unavailable BALL, AUGUSTINE Primary Care Unavailable Ball, Augustine Primary Care Unavailable Colin Song Admitting Unavailab Colin Tong Attending Unavailab Augustine Ruby MD Primary Care Provider JOSE R DODD Attending Unavailable JOSE R DODD Attending Unavailable OSMAN SHAH Attending Unavailable JOSE R DODD Attending Unavailable JOSE R DODD Attending Unavailable JOSE R DODD Attending Unavailable MOUKAOLIVER HUITRON Referring Unavailable MOUKARBEL, OLIVER Admitting Unavailable MOUKARBEL, OLIVER Attending Unavailable MADISON PAUL Referring Unavailable RAJESH, LIONEL Referring Unavailable RAJESH, LIONEL Referring Unavailable RAJESH, LIONEL Referring Unavailable RAJESH, LIONEL Referring Unavailable BRIGITTE PERRY Referring Unavailab le MOUKARBELOLIVER Referring Unavailable MOUKARBEL, OLIVER Referring Unavailable MOUKARBEL, OLIVER Referring Unavailable MOUKARBEL, OLIVER Attending Unavailable ELTAHAWY, EHAB Attending Unavailable MADISON PAUL Attending Unavailable MADISON PAUL Attending Unavailable MOUKAOLIVER HUITRON Referring Unavailable MOUKARBELOLIVER Admitting Unavailable DORI RHODES Attending Unavailable RAJESH, LIONEL Referring Unavailable Allergies Allergy Classification Reported Allergen(s) Allergy Type Date of Onset Reaction(s) Facility (13 sources) Iodine; Translations: [iodine] Drug Allergy 08-31-20 09 Unknown, Unknown Reaction [facility] Repository (4 sources) Penicillins; Translations: [PENICILLINS] Drug allergy (disorder) 08-01-19 63 Unknown Reaction [facility] Repository (4 sources) Sulfonamides (Antibiotic); Translations: [SULFA (SULFONAMIDE ANTIBIOTICS)] Drug allergy (disorder) 08-31-19 93 Unknown Reaction [facility] Repository (2 sources) Shellfish Containing Products; Translations: [Shellfish Containing Products] Food allergy (disorder) 08-31-20 09 [facility] Rep[facility] (16 sources) Iodine; Translations: [iodine] Drug Allergy 08-31-20 09 Swelling, Unknown (qualifier value), [facility] ([facility] Penicillin G Drug Allergy 10-20-19 13 Hives [facility] [employer] [facility] (14 sources) Shellfish Propensity to adverse reactions to drug 08-31-20 09 Swelling, Other [facility] [employer] [facility] (12 sources) Sulfonamides (Antibiotic) Propensity to adverse reactions to drug 10-20-19 13 Swelling [facility] [employer] [facility] (11 sources) Penicillins (Antibiotic) Drug allergy Unknown [employer] Other (12 sources) Shrimp product Propensity to adverse reactions 01-31-20 24 Unknown, Unknown Reaction [facility] (11 sources) Sulfonamides (Antibiotic) Drug allergy Unknown [employer] Other (5 sources) Penicillin; Translations: [penicillin] Drug Allergy Unknown (qualifier value) [facility] (1 source) Sulfonamides (Antibiotic); Translations: [sulfa drugs] Drug allergy Unknown (qualifier value) [facility] (1 source) No Alert Propensity to adverse reactions to drug 09-14-20 22 [facility] (1 source) Penicillin Drug Allergy 10-01-19 23 [facility] (1 source) Propensity to adverse reactions to drug 10-01-19 23 [facility] (1 source) Iodine Drug Allergy 08-30-20 13 [facility] Repository (1 source) Shellfish Drug allergy (disorder) 08-30-20 13 [facility] Repository (4 sources) sulfADIAZINE Drug Allergy Unknown [facility] [employer] Other (6 sources) Substance with sulfonamide structure and antibacterial mechanism of action (substance) Drug allergy 08-31-19 93 Rash, Swelling [facility] [employer] Other (1 source) sulfa drug; Translations: [sulfa drug] Propensity to adverse reactions to drug (disorder) [facility] Repository (2 sources) Penicillin V Drug Allergy 01-23-20 23 [facility] (2 sources) Penicillins Drug Allergy 08-01-19 63 Hives [facility] (2 sources) Other Allergy to substance 06-30-20 23 Other [facility] (2 sources) Shellfish-Derived Products Drug Allergy 10-20-19 13 Swelling [facility] (1 source) Shellfish Allergy to substance 01-31-20 24 Unknown Reaction [facility] Medications Current Medications Medication Drug Class(es) Dates Sig (Normalized) Sig (Original) Accu-Chek Prachi Plus - (9 sources) Accu-Chek Prachi Plus - USE TO TEST BLOOD SUGAR DAILY for 50 Active acetaminophen 325 mg oral tablet (17 sources) Start: 03-15-2022 take 2 tablets by mouth every four hours as needed acetaminophen 325 MG tablet Take 2 tablets by mouth every 4 hours as needed for Mild Pain. 50 tablet 1 03/15/2022 Active Start: 03-15-2022 End: 03-16-2022 take 1 tablet by mouth every six hours acetaminophen (TYLENOL) tablet 1,000 mg Start: 11-10-2021 take 500 mg by mouth four times daily Acetaminophen Active 500 MG PO Four times daily November 10, 2021 1:00am Start: 04-27-2021 End: 03-16-2022 take 1 mg by mouth every six hours, then take 2 tablets by mouth every eight hours Tylenol Extra Strength 500 mg oral tablet mg tab(s), Oral, q6hr, taking 2 every 8 hours, Refills(s) 0 Start Date: 04/27/21 Status: Ordered take 2 tablets by mo [facility] every eight hours Tylenol 8 Hour 650 MG 2 tablets as needed Orally every 8 hrs Active amiodarone hydrochloride 200 mg oral tablet (1 source) Antiarrhythmic Start: 01-31-2024 take 200 mg by mouth once daily Amiodarone Active 200 MG PO Daily January 31, 2024 12:00am amLODIPine 10 mg oral tablet (20 sources) Dihydropyridine Calcium Channel Dominic Start: 03-16-2022 End: 03-16-2022 amLODIPine (NORVASC) tablet 5 mg Start: 03-15-2022 End: 03-16-2022 take 2.5 mg by mouth every twelve hours 2.5 mg, Oral, EVERY 12 HOURS, First dose on Tue03/15/22 at 2100, Until Discontinued Hold for blood pressure less than 1 20 mmHg Start: 09-24-2019 End: 01-31-2024 take 10 mg by mouth once daily Amlodipine Discontinued 10 MG PO Daily November 10, 2021 1:00am January 31, 2024 3:31pm Aspirin (20 sources) Platelet Aggregation Inhibitor, Nonsteroidal Anti-inflammatory Drug Start: 10-01-2022 311968 Medication aspirin aspirin 300 mg 10/01/2022 Active (Outside) Start: 11-10-2021 take 1 tablet by wendy th once daily Aspirin (Aspirin Childrens) 81 mg tablet,chewable Active 81 MG PO Daily November 10, 2021 1:00am Start: 09-24-2019 aspirin Refill s(s) 0 Start Date: 09/24/19 Status: Ordered take 1 tablet by wendy th in the morning aspirin 81 MG EC tablet Take 1 tablet by mouth in the morning. 0 Active atorvastatin 10 mg oral tablet (20 sources) HMG-CoA Reductase Inhibitor Start: 06-15-2012 End: 03-16-2022 take 10 mg by mouth once daily Atorvastatin Active 10 MG PO Daily November 10, 2021 1:00am benazepril hydrochloride 20 mg oral tablet (20 sources) Angiotensin Converting Enzyme Inhibitor Start: 01-31-2024 take 20 mg by mouth once daily Benazepril Active 20 MG PO Daily January 31, 2024 12:00am Start: 02-03-2018 take 1 tablet by wendy th in the morning benazepril (Lotensin) 20 MG tablet Take 20 mg by mouth in the morning. 0 07/09/2022 Active carvedilol 12.5 mg oral tablet (20 sources) alpha-Adrenergic Dominic, beta-Adrenergic Dominic Start: 01-31-2024 take 12.5 mg by mouth twice daily Carvedilol Active 12.5 MG PO Twice daily January 31, 2024 12:00am Start: [id number] Medicat ion carvedilol 6.25 mg tablet carvedilol 6.25 mg tablet 6.25 mg 07/28/2022 Active (Outside) Start: 03-15-2022 End: 03-16-2022 take 6.25 mg by mouth every twelve hours 6.25 mg, Oral, EVERY 12 HOURS, First dose on Tue03/15/22 at 2100, Until Discontinued Start: 09-24-2019 End: 01-31-2024 take 6.25 mg by mouth twice daily Carvedilol Discontinued 6.25 MG PO Twice daily November 10, 2021 1:00am January 31, 2024 8:48am take 1 tablet by wendy th every twelve hours Carvedilol 12.5 MG 1 tablet with food Orally Twice a day Active carvedilol (Core g) 12.5 MG tablet [...] cancel msg)) ciprofloxacin 500 mg oral tablet (9 sources) Quinolone Antimicrobial Start: 11-10-2022 take 1 [...] drive or mental status after anesthesia Start: 11-10-2021 take 1 mg by mouth o nce daily Clonazepam Active 1 MG PO Daily November 10, 2021 1:00am Start: 09-24-2019 take 1 tablet by wendy th three times daily clonazepam 1 mg Tab mg tab(s), Oral, TID, Refills(s) 0 Start Date: 09/24/19 Status: Ordered Start: 01-16-2018 End: 2022 clonazePAM 0.5 MG Tab tablet 1 mg. 0 01/16/2018 2022 Discontinued (Medication Reconciliation (suppress cancel msg)) clopidogrel 75 mg oral tablet (1 source) [id number] Platelet Inhibitor Start: 01-31-2024 take 1 tablet by mouth once daily Clopidogrel (Plavix) 75 mg tablet Active 75 MG PO Daily January 31, 2024 12:00am docusate sodium 100 mg oral capsule (8 sources) Start: 03-15-2022 End: 03-16-2022 take 1 capsule by mouth twice daily docusate 100 MG capsule Take 1 capsule by mouth 2 times daily. 60 capsule 0 03/15/2022 Active doxycycline hyclate 100 mg oral capsule (1 source) Tetracycline-class Drug Start: 01-31-2024 take 100 mg by mouth twice daily Doxycycline Hyclate Active 100 MG PO Twice daily 14 January 31, 2024 12:00am glimepiride 1 mg oral tablet (1 source) [...] AREDS PO) Take by mouth. 0 Active Multivitamin-Minera ls-Lutein (A Thru Z High Potency) tablet (1 source) Start: 11-10-2021 take 1 tablet by mouth once daily Multivitamin-Mine rals-Lutein (A Thru Z High Potency) tablet Active 1 TAB PO Daily November 10, 2021 1:00am omeprazole 20 mg delayed release oral capsule (20 sources) Proton Pump Inhibitor Start: 12-27-2017 take 20 mg by mouth once daily Omeprazole Active 20 MG PO Daily November 10, 2021 1:00am primidone 250 mg oral tablet (1 source) Anti-epileptic Agent Start: 08-21-2022 11831 Medication omeprazole 20 mg capsule,delayed release omeprazole 20 mg capsule,delayed release 20 mg 08/21/2022 Active (Outside) propafenone hydrochloride 150 mg oral tablet (20 sources) Antiarrhythmic Start: 09-24-2019 End: 01-31-2024 propafenone (Rythmol) 150 MG tablet Take by mouth. 0 07/06/2022 Active therapeutic multivitamin-minera ls tablet (7 sources) Start: 03-15-2022 take 1 tablet by mouth at bedtime therapeutic multivitamin-mine rals tablet Take 1 tablet by mouth at bedtime. 30 tablet 0 03/15/2022 Active traZODone (20 sources) Serotonin Reuptake Inhibitor Start: 01-23-2024 take 1 tablet by mouth once daily at bedtime Trazodone Active 0 .ROUTE .COMPLEX 90 January 23, 2024 10:08pm TAKE ONE TABLET BY MOUTH EVERY NIGHT AT BEDTIME Start: 11-10-2021 End: 01-23-2024 take 50 mg by mouth once daily Trazodone Discontinued 50 MG PO Daily November 10, 2021 1:00am January 23, 2024 10:08pm Start: 09-24-2019 take 1 tablet by wendy th at bedtime traZODone (Desyrel) 50 MG tablet Take 1 tablet by mouth at bedtime. 0 04/30/2022 Active Tylenol 8 Hour 650 MG (7 sources) take 2 tablets by mouth every ei ght hours as needed take 2 tablets by mo uth every eight hours as needed Tylenol 8 Hour 650 MG 2 tablets as neede d Orally every 8 hrs Active Completed/Discontinued Medications Medication Drug Class(es) Dates [...] XL docusate sodium 50 mg / sennosides, skilled nursing 8.6 mg oral tablet (1 source) Start: [...] cancel msg)) metroNIDAZOLE 500 mg oral tablet (9 sources) Nitroimidazole Antimicrobial Start: 11-10-19 take 1 tablet by mouth every eight hours metroNIDAZOLE 500 MG 1 tablet Orally Three times a day for 7 days Oct, Not-Taking/PRN Multiple Vitamins-Minerals (MULTIVITAMIN ADULT PO) (3 sources) End: 01-22-20 Multiple Vitamins-Minerals (MULTIVITAMIN ADULT PO) Take by mouth. 0 2022 Discontinued (Medication Reconciliation (suppress cancel msg)) Multiple Vitamin s-Minerals (MULTIVITAMIN ADULT PO) Take by mouth. 0 Active Multivitamins (11 sources) Multivitamins as directed Orally Not-Taking/PRN Multivitamins as directed Orally Not-Taking Multivitamins as [...] Start: 03-15-2022 End: 03-16-2022 vancomycin (VANCOCIN) injection warfarin sodium 7.5 mg oral tablet (20 sources) Vitamin K Antagonist Start: 09-24-2019 End: 01-31-2024 Warfarin Discontinued 7.5 MG PO As Directed November 10, 2021 1:00am January 31, 2024 3:31pm 7.5mg on Sat. 5mg [id number] Start: 01-02-2018 warfarin 5 MG tablet 1 tablet. 0 01/02/2018 Active Start: 01-02-2018 warfarin 5 MG tablet 7 mg. Tuesday and Tuesday 7.5 mg, S,M,W,THUR,F 5 mg daily 0 01/02/2018 Active Warfarin 5mg 5 m g 1 tablet orally [id number] Active Warfarin Sodium Active zolpidem tartrate 5 mg oral tablet (1 [...] pain] Onset: 3 Episodic Acute cerebrovascular disease (6 sources) Hemorrhage into subarachnoid space of neuraxis; Translations: [Nontraumatic subarachnoid hemorrhage, unspecified] Chronic Aortic; peripheral; and visceral artery aneurysms (2 sources) Thoracic aortic ectasia; Translations: [Thoracic aortic ectasia] Onset: 3 Chronic Biliary tract disease (12 sources) Obstruction of bile duct; Translations: [Obstruction of bile duct] 09-07-2023 Chronic Biliary tract disease (15 sources) Gallstone; Translations: [Calculus of gallbladder without cholecystitis without obstruction] Onset: 2 Resolved: 2 Episodic Calculus of urinary tract (18 sources) Kidney stone; Translations: [Calculus of kidney] Onset: 2 Episodic Cardiac dysrhythmias (20 sources) Paroxysmal atrial fibrillation; Translations: [Paroxysmal atrial fibrillation] Onset: 2 Chronic Cataract (2 sources) Bilateral age-related nuclear cataracts; Translations: [Age-related nuclear cataract, bilateral] Onset: 4 10-28-2023 Chronic Chronic kidney disease (20 sources) Chronic kidney disease stage 3A ; Translations: [Stage 3a chronic kidney disease] Onset: 2 Chronic Complication of device; implant or graft (1 source) Joint pain; Translations: [Pain due to internal orthopedic prosthetic devices, implants and grafts, sequela] Episodic Complications of surgical procedures or medical care (9 sources) Retained cholelithiasis following cholecystectomy; Translations: [Retained cholelithiasis following cholecystectomy] Episodic Congestive heart failure; nonhypertensive (12 sources) Chronic diastolic heart failure; Translations: [Chronic diastolic (congestive) heart failure] Chronic Deficiency and other anemia (9 sources) Anemia; Translations: [Anemia, unspecified] Episodic Diabetes mellitus with complications (16 sources) Hyperglycemia due to type 2 diabetes mellitus; Translations: [Type 2 diabetes mellitus with hyperglycemia] Onset: 3 Chronic Diabetes mellitus without complication (10 sources) Type 2 diabetes mellitus without complication; Translations: [Type 2 diabetes mellitus without complications] Onset: 2 Chronic Disorders of lipid metabolism (20 sources) Mixed hyperlipidemia; Translations: [Mixed hyperlipidemia] Onset: 2 Chronic Diverticulosis and diverticulitis (11 sources) Diverticular disease; Translations: [Diverticulosis of intestine, part unspecified, without perforation or abscess without bleeding] Chronic E Codes: Fall (1 source) Fall (on) (from) unspecified stairs and steps, initial encounter; Translations: [FALL ON FROM UNS STAIRS STEPS INIT] Onset: 3 Episodic Esophageal disorders (15 sources) Gastroesophageal reflux disease without esophagitis; Translations: [Gastro-esophageal reflux disease without esophagitis] Onset: 2 Chronic Essential hypertension (17 sources) Hypertensive disorder; Translations: [Essential hypertension] Onset: 2 09-24-2019 Chronic Glaucoma (1 source) Glaucoma 09-24-2019 Chronic Heart valve disorders (13 sources) Non-rheumatic mitral regurgitation ; Translations: [Nonrheumatic mitral (valve) insufficiency] Onset: 2 Chronic Hyperplasia of prostate (3 sources) Benign prostatic hypertrophy with outflow obstruction; Translations: [Benign prostatic hyperplasia with lower urinary tract symptoms] Onset: 2 Chronic Hypertension with complications and secondary hypertension (10 sources) Chronic kidney disease due to hypertension; [...] parts of face Onset: 3 Chronic Osteoarthritis (20 sources) Osteoarthritis of right knee joint; Translations: [Unilateral primary osteoarthritis, right knee] Onset: 3 Chronic Other aftercare (9 sources) Long-term current use of anticoagulant; Translations: [intermediate (current) use of anticoagulants] Episodic Other aftercare (2 sources) intermediate (current) use of anticoagulants; Translations: [INTERMEDIATE CURRNT USE ANTICOAGULANTS] Onset: 3 Episodic Other aftercare (5 sources) Encounter for therapeutic drug level monitoring; Translations: [ENC THERAPEUTC DRUG LEVL MONITORING] Onset: 3 Episodic Other aftercare (1 source) manager long term care (current) 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; Translations: [INTERMEDIATE CURRENT USE OF ASPIRIN] Onset: 3 Episodic Other aftercare (1 source) Other intermediate accountant (current) drug therapy; Translations: [OTH MOLDER MACHINE CURRENT DRUG THERAPY] Onset: 3 Episodic Other [...] ARTIFICIAL KNEE JOINT] Onset: 2 Chronic Other diseases of kidney and ureters (1 source) Urinary tract obstruction; Translations: [Other obstructive and reflux uropathy] Onset: 2 Episodic Other diseases of kidney and ureters (9 sources) Acquired renal cystic disease; Translations: [Cyst of kidney, acquired] Episodic Other ear and sense organ disorders (1 source) Unspecified hearing loss, unspecified ear; Translations: [UNS HEARING LOSS UNSPECIFIED EAR] Onset: 3 Chronic Other endocrine disorders (9 sources) Other specified disorders of adrenal gland; Translations: [Nodule of adrenal cortex (disorder)] Chronic Other eye disorders (3 sources) Dry eyes; Translations: [Dry eye syndrome of bilateral lacrimal glands] Onset: 3 08-29-2023 Episodic Other gastrointestinal disorders (9 sources) Pharyngeal dysphagia; Translations: [Dysphagia, pharyngoesophageal phase] Episodic Other hereditary and degenerative nervous system conditions (8 sources) Restless legs; Translations: [Restless legs syndrome] Onset: 2 Chronic Other hereditary and degenerative nervous system conditions (1 source) Restless legs syndrome; Translations: [RESTLESS LEGS SYNDROME] Onset: 3 Chronic Other injuries and conditions due to external causes (9 sources) History of fall; Translations: [History of falling] Episodic Other injuries and conditions due to external causes (9 sources) Choking due to food in larynx; Translations: [Food in larynx causing asphyxiation, initial encounter] Episodic Other liver diseases (9 sources) Steatosis of liver; Translations: [Fatty (change of) liver, not elsewhere classified] Chronic Other liver diseases (3 sources) Fatty (change of) liver, not elsewhere [...] Episodic Other nutritional; endocrine; and metabolic disorders (11 sources) Obese class II; Translations: [Body mass index (BMI) 36.0-36.9, adult] Chronic Other screening for suspected conditions (not mental disorders or infectious disease) (11 sources) Ultrasound scan abnormal; Translations: [Abnormal findings on diagnostic imaging of other specified body structures] Chronic Other screening for suspected conditions (not mental disorders or infectious disease) (1 source) Coag./bleeding tests abnormal; Translations: [Abnormal coagulation profile] Episodic Pancreatic disorders (not diabetes) (20 sources) Disorder of pancreas; Translations: [Disease of pancreas, unspecified] Onset: 2 Resolved: 2 Episodic Nicolasa-; endo-; and myocarditis; cardiomyopathy (except that caused by tuberculosis or sexually transmitted disease) (2 sources) Hemopericardium; Translations: [Hemopericardium, not elsewhere classified] 01-30-2024 Episodic Residual codes; unclassified (9 sources) Periodic limb movement disorder; Translations: [Periodic limb movement disorder] Chronic Residual codes; unclassified (10 sources) Obstructive sleep apnea syndrome; Translations: [Obstructive sleep apnea (adult) (pediatric)] 01-30-2024 Chronic Residual codes; unclassified (6 sources) Obstructive sleep apnea (adult) (pediatric); Translations: [Obstructive sleep apnea (adult)(pediatric)] Onset: 3 Chronic Residual codes; unclassified (1 [...] 3 03-17-2023 Chronic Septicemia (except in labor) (9 sources) Other Gram-negative sepsis; Translations: [Enterobacter sepsis] [...] Translations: [CHRONIC ATRIAL FIBRILLATION UNSPEC] Onset: 3 Unclassified (1 source) Other pericardial effusion (noninflammatory); Translations: [Other pericardial effusion (noninflammatory)] Onset: 4 Past or Other Problems Problem Classification Problem Date Documented Date Episodic/Chronic Chronic kidney disease (3 sources) Chronic kidney disease Deficiency and other anemia (1 source) Anemia, unspecified; Translations: [ANEMIA UNSPECIFIED] Onset: 2 Episodic Diabetes mellitus without complication (3 sources) Glycosuria; Translations: [Glycosuria] Onset: 2 Episodic Esophageal disorders (8 sources) Esophageal disorders; Translations: [Gastro-esophageal reflux disease [...] Onset: 3 Resolved: 4 08-29-2023 Episodic Other connective tissue disease (2 sources) Repeated falls; Translations: [Repeated falls] Onset: 3 Episodic Other gastrointestinal disorders (4 sources) Dysphagia, [...] Onset: 3 Resolved: 4 08-29-2023 Episodic Unclassified (9 sources) Elevated transaminase level; Translations: [Elevated transaminase level] Unclassified (1 source) Other pericardial effusion (noninflammatory); Translations: [Other pericardial effusion (noninflammatory)] Onset: 4 Results Test Name Value Interpretation Reference Range Facility Office Visiton 02-09-2024 Follow-up visit [id number] Amina Goncalves 1945 M Date Provider Department Center 02/09/2024 [facility] Family History Problem Relation Age of Onset Cancer Mother Heart attack Other Family Status - Relation Status Age at Mother Other Level of Service:[id number] IN OFFICE/OUTPATIENT ESTABLISHED LOW MDM 20 MIN Reason for Visit and Comments: Atrial Fibrillation [80] - S/p LAAO with Amulet device Normal [facility] 30on 01-29-2024 30 The patient is Moder ately Stable - Low risk of patient condition declining or worsening The patient's goals for the shift include comfort The clinical goals for the shift include maintain normal heart rate Problem: Pain - Adult Goal: Verbalizes/displays adequate comfort level or baseline comfort level Outcome: Progressing Problem: Safety - Adult Goal: Free from fall injury Outcome: Progressing Flowsheets (Taken 01/29/2024 0721) Free from fall injury: Assess patient frequently for physical needs Identify cognitive and physical deficits and behaviors that affect risk of falls Problem: Discharge Planning Goal: Discharge to home or other facility with appropriate resources Outcome: Progressing Problem: Chronic Conditions and Co-morbidities Goal: Patient's chronic conditions and co-morbidity symptoms are monitored and maintained or improved Outcome: Progressing Problem: Neurosensory - Adult Goal: Achieves stable or improved neurological status Outcome: Progressing Goal: Absence of seizures Outcome: Progressing Goal: Remains free of injury related to seizures activity Outcome: Progressing Goal: Achieves maximal functionality and self care Outcome: Progressing Problem: Respiratory - Adult Goal: Achieves optimal ventilation and oxygenation Outcome: Progressing Problem: Cardiovascular - Adult Goal: Maintains optimal cardiac output and hemodynamic stability Outcome: Progressing Goal: Absence of cardiac dysrhythmias or at baseline Outcome: Progressing Problem: Skin/Tissue Integrity - Adult Goal: Skin integrity remains intact Outcome: Progressing Goal: Incisions, wounds, or drain sites healing without S/S of infection Outcome: Progressing Goal: Oral mucous membranes remain intact Outcome: Progressing Problem: Musculoskeletal - Adult Goal: Return mobility to safest level of function Outcome: Progressing Goal: Maintain proper alignment of affected body part Outcome: Progressing Goal: Return ADL status to a safe level of function Outcome: Progressing Problem: Gastrointestinal - Adult Goal: Minimal or absence of nausea and vomiting Outcome: Progressing Goal: Maintains or returns to baseline bowel function Outcome: Progressing Goal: Maintains adequate nutritional intake Outcome: Progressing Goal: Establish and maintain optimal ostomy function Outcome: Progressing Problem: Genitourinary - Adult Goal: Absence of urinary retention Outcome: Progressing Goal: Urinary catheter remains patent Outcome: Progressing Problem: Infection - Adult Goal: Absence of infection at discharge Outcome: Progressing Goal: Absence of infection during hospitalization Outcome: Progressing Goal: Absence of fever/infection during anticipated neutropenic period Outcome: Progressing Problem: Metabolic/Fluid and Electrolytes - Adult Goal: Electrolytes maintained within normal limits Outcome: Progressing Goal: Hemodynamic stability and optimal renal function maintained Outcome: Progressing Goal: Glucose maintained within prescribed range Outcome: Progressing Problem: Hematologic - Adult Goal: Maintains hematologic stability Outcome: Progressing Normal [facility] BASIC METABOLIC PANELon 05-0 Anion gap [Moles/Vol] 11 mmol/L Normal 7-20 [facility] Comment on above: Performed By: #### L [id number] #### [facility] ([facility]) [address] [place] [address] Calcium [Mass/Vol] 8.0 mg/dL Low 8.6-10.3 [facility] Comment on above: Performed By: #### L [id number] #### [facility] ([facility]) [address] [place] [address] Chloride [Moles/Vol] 109 mmol/L High 98-107 [facility] Comment on above: Performed By: #### L [id number] #### [facility] ([facility]) [address] [facility] [address] CO2 [Moles/Vol] 24 mmol/L Normal 21-31 [facility] Comment on above: Performed By: #### L [id number] #### [facility] ([facility]) [address] [place] [address] Creatinine [Mass/Vol] 1.17 mg/dL Normal 0.70-1.30 [facility] Comment on above: Performed By: #### L [id number] #### [facility] ([facility]) [address] [place] [address] GLOMERULAR FILTRATION RATE ML/MIN/1.73 SQ M.PREDICTED 63.8 mL/min/1.73m*2 Normal >60.0 [facility] Comment on above: Result Comment: The [facility]???s estimated glomerular filtration rate (eGFR) will no longer include consideration of race in its calculation. The National Kidney Foundation???s eGFR Task Force developed new recommendations for the estimation of the glomerular filtration rate in the [place] They recommend immediate implementation of the new equation refit without the race variable in all laboratories because the calculation does not include race. In addition to not including race in the calculation and reporting, it included diversity in its development, and has acceptable performance characteristics and potential consequences that do not disproportionately affect any one group of individuals. Performed By: #### L [id number] #### [facility] ([facility]) [address] [place] [address] Glucose [Mass/Vol] 125 mg/dL High 70-100 [facility] Comment on above: Performed By: #### L [id number] #### [facility] ([facility]) [address] [place] [address] Potassium [Moles/Vol] 3.6 mmol/L Normal 3.5-5.1 [facility] Comment on above: Performed By: #### L [id number] #### [facility] ([facility]) [address] [place] [address] Sodium [Moles/Vol] 140 mmol/L Normal 136-145 [facility] Comment on above: Performed By: #### L [id number] #### [facility] ([facility]) [address] [place] [address] Urea nitrogen [Mass/Vol] 22 mg/dL Normal 7-25 [facility] Comment on above: Performed By: #### L [id number] #### [facility] ([facility]) [address] [place] [address] UREA NITROGEN/CREATININE (MASS RATIO) IN SER/PLAS 18.8 Normal [facility] Comment on above: Performed By: #### L [id number] #### [facility] ([facility]) [address] [place] [address] CBCon 01-29-2024 Erythrocyte distribution width (RBC) [Ratio] 14.6 % Normal 11.5-15.0 [facility] Comment on above: Performed By: #### L [id number] #### [facility] ([facility]) [address] [place] [address] ERYTHROCYTE MEAN CORPUSCULAR HEMOGLOBIN CONCENTRATION (G/DL) BY AUTOMATED 32.8 g/dL Normal 32.0-35.0 [facility] Comment on above: Performed By: #### L [id number] #### [facility] ([facility]) [address] [place] [address] Hematocrit (Bld) [Volume fraction] 30.5 % Low 39.0-55.0 [facility] Comment on above: Performed By: #### L [id number] #### [facility] [address] [place] [address] Hemoglobin (Bld) [Mass/Vol] 10.0 g/dL Low 13.0-17.0 [facility] Comment on above: Performed By: #### L [id number] #### [facility] [address] [place] [address] MCH (RBC) [Entitic mass] 29.1 pg Normal 27.0-33.0 [facility] Comment on above: Performed By: #### L [id number] #### [facility] ([facility]) [address] [place] [address] MCV (RBC) [Entitic vol] 88.7 fL Normal 82.0-98.0 [facility] Comment on above: Performed By: #### L [id number] #### [facility] ([facility]) [address] [place] [address] PLATELETS (10*3/UL) IN BLOOD AUTOMATED COUNT 151 10*3/uL Normal 150-400 [facility] Comment on above: Performed By: #### L [id number] #### [facility] ([facility]) [address] [place] [address] RBC (Bld) [#/Vol] 3.44 10*6/uL Low 4.20-5.[address] [facility] Comment on above: Performed By: #### L [id number] #### [facility] ([facility]) [address] [place] [address] WBC (Bld) [#/Vol] 6.43 10*3/uL Normal 4.00-10.[address] [facility] Comment on above: Performed By: #### L [id number] #### [facility] ([facility]) [address] [place] [address] HEMOGLOBIN A1Con 01-29-2024 Glucose [Mass/Vol] 163 mg/dL Normal [facility] Comment on above: Performed By: #### L [id number] #### [facility] ([facility]) [address] [place] [address] HbA1c (Bld) [Mass fraction] 7.3 % High 4.0-6.0 [facility] Comment on above: Performed By: #### L [id number] #### [facility] ([facility]) [address] [place] [address] POCT GLUCOSE METER UNSOLICIT ED RESULTSon 01-29-2024 Glucose [Mass/Vol] 218 mg/dL High 70-105 [facility] Comment on above: Order Comment: Waive d Testing in the ED is performed under the ED CLIA certificate #[id number]. Result Comment: [email or web address] Performed By: #### L [id number] ####[facility] ([facility])[address] [place] [address] Glucose [Mass/Vol] 138 mg/dL High 70-105 [facility] Comment on above: Order Comment: Waive d Testing in the ED is performed under the ED CLIA certificate #[id number]. Result Comment: [email or web address] Performed By: #### L [id number] #### [facility] ([facility]) [address] [place] [address] 30on 01-28-2024 30 The patient is Moder ately Stable - Low risk of patient condition declining or worsening The patient's goals for the shift include comfort The clinical goals for the shift include decreased output from pericardial drain Problem: Pain - Adult Goal: Verbalizes/displays adequate comfort level or baseline comfort level Outcome: Progressing Problem: Safety - Adult Goal: Free from fall injury Outcome: Progressing Flowsheets (Taken 01/28/2024 0742) Free from fall injury: Assess patient frequently for physical needs Identify cognitive and physical deficits and behaviors that affect risk of falls [place] fall precautions as indicated by assessment Problem: Discharge Planning Goal: Discharge to home or other facility with appropriate resources Outcome: Progressing Problem: Chronic Conditions and Co-morbidities Goal: Patient's chronic conditions and co-morbidity symptoms are monitored and maintained or improved Outcome: Progressing Problem: Neurosensory - Adult Goal: Achieves stable or improved neurological status Outcome: Progressing Goal: Absence of seizures Outcome: Progressing Goal: Remains free of injury related to seizures activity Outcome: Progressing Goal: Achieves maximal functionality and self care Outcome: Progressing Problem: Respiratory - Adult Goal: Achieves optimal ventilation and oxygenation Outcome: Progressing Problem: Cardiovascular - Adult Goal: Maintains optimal cardiac output and hemodynamic stability Outcome: Progressing Goal: Absence of cardiac dysrhythmias or at baseline Outcome: Progressing Problem: Skin/Tissue Integrity - Adult Goal: Skin integrity remains intact Outcome: Progressing Goal: Incisions, wounds, or drain sites healing without S/S of infection Outcome: Progressing Goal: Oral mucous membranes remain intact Outcome: Progressing Problem: Musculoskeletal - Adult Goal: Return mobility to safest level of function Outcome: Progressing Goal: Maintain proper alignment of affected body part Outcome: Progressing Goal: Return ADL status to a safe level of function Outcome: Progressing Problem: Gastrointestinal - Adult Goal: Minimal or absence of nausea and vomiting Outcome: Progressing Goal: Maintains or returns to baseline bowel function Outcome: Progressing Goal: Maintains adequate nutritional intake Outcome: Progressing Goal: Establish and maintain optimal ostomy function Outcome: Progressing Problem: Genitourinary - Adult Goal: Absence of urinary retention Outcome: Progressing Goal: Urinary catheter remains patent Outcome: Progressing Problem: Infection - Adult Goal: Absence of infection at discharge Outcome: Progressing Goal: Absence of infection during hospitalization Outcome: Progressing Goal: Absence of fever/infection during anticipated neutropenic period Outcome: Progressing Problem: Metabolic/Fluid and Electrolytes - Adult Goal: Electrolytes maintained within normal limits Outcome: Progressing Goal: Hemodynamic stability and optimal renal function maintained Outcome: Progressing Goal: Glucose maintained within prescribed range Outcome: Progressing Problem: Hematologic - Adult Goal: Maintains hematologic stability Outcome: Progressing Normal [facility] BASIC METABOLIC PANELon 05-0 Anion gap [Moles/Vol] 12 mmol/L Normal -20 [facility] Comment on above: Performed By: #### L [id number] ####[facility] ([facility])[address] [place] [address] Calcium [Mass/Vol] 7.7 mg/dL Low 8.6-10.3 [facility] Comment on above: Performed By: #### L [id number] ####[facility] ([facility])[address] [place] [address] Chloride [Moles/Vol] 108 mmol/L High 98-107 [facility] Comment on above: Performed By: #### L [id number] ####[facility] ([facility])[address] [place] [address] CO2 [Moles/Vol] 21 mmol/L Normal 21-31 [facility] Comment on above: Performed By: #### L [id number] ####[facility] ([facility])[address] [place] [address] Creatinine [Mass/Vol] 1.16 mg/dL Normal 0.70-1.30 [facility] Comment on above: Performed By: #### L [id number] ####[facility] ([facility])[address] [place] [address] GLOMERULAR FILTRATION RATE ML/MIN/1.73 SQ M.PREDICTED 64.5 mL/min/1.73m*2 Normal >60.0 [facility] Comment on above: Result Comment: The [facility]???s estimated glomerular filtration rate (eGFR) will no longer include consideration of race in its calculation. The National Kidney Foundation???s eGFR Task Force developed new recommendations for the estimation of the glomerular filtration rate in the [place] They recommend immediate implementation of the new equation refit without the race variable in all laboratories because the calculation does not include race. In addition to not including race in the calculation and reporting, it included diversity in its development, and has acceptable performance characteristics and potential consequences that do not disproportionately affect any one group of individuals. Performed By: #### L [id number] ####[facility] ([facility])[address] [place] [address] Glucose [Mass/Vol] 143 mg/dL High 70-100 [facility] Comment on above: Performed By: #### L [id number] ####[facility] ([facility] [place] [address] Potassium [Moles/Vol] 3.3 mmol/L Low 3.5-5.1 [facility] Comment on above: Performed By: #### L [id number] ####[facility] ([facility])[address] [facility] [address] Sodium [Moles/Vol] 138 mmol/L Normal 136-145 [facility] Comment on above: Performed By: #### L [id number] ####[facility] ([facility])[address] [facility] [place] [address] Urea nitrogen [Mass/Vol] 27 mg/dL High 7-25 [facility] Comment on above: Performed By: #### L [id number] ####[facility] ([facility])[address] [facility] [place] [address] UREA NITROGEN/CREATININE (MASS RATIO) IN SER/PLAS 23.3 Normal [facility] Comment on above: Performed By: #### L [id number] ####[facility] ([facility])[address] [place] [address] CBCon 01-28-2024 Erythrocyte distribution width (RBC) [Ratio] 14.4 % Normal 11.5-15.0 [facility] Comment on above: Performed By: #### L [id number] #### [facility] ([facility]) [address] [place] [address] ERYTHROCYTE MEAN CORPUSCULAR HEMOGLOBIN CONCENTRATION (G/DL) BY AUTOMATED 32.8 g/dL Normal 32.0-35.0 [facility] Comment on above: Performed By: #### L [id number] #### [facility] ([facility]) [address] [place] [address] Hematocrit (Bld) [Volume fraction] 31.4 % Low 39.0-55.0 [facility] Comment on above: Performed By: #### L [id number] #### [facility] ([facility]) [address] [place] [address] Hemoglobin (Bld) [Mass/Vol] 10.3 g/dL Low 13.0-17.0 [facility] Comment on above: Performed By: #### L [id number] #### [facility] ([facility]) [address] [place] [address] MCH (RBC) [Entitic mass] 29.0 pg Normal 27.0-33.0 [facility] Comment on above: Performed By: #### L [id number] #### [facility] ([facility]) [address] [place] [address] MCV (RBC) [Entitic vol] 88.5 fL Normal 82.0-98.0 [facility] Comment on above: Performed By: #### L [id number] #### [facility] [address] [place] [address] PLATELETS (10*3/UL) IN BLOOD AUTOMATED COUNT 134 10*3/uL Low 150-400 [facility] Comment on above: Performed By: #### L [id number] #### [facility] ([facility]) [address] [place] [address] RBC (Bld) [#/Vol] 3.55 10*6/uL Low 4.20-5.[address] [facility] Comment on above: Performed By: #### L [id number] #### [facility] ([facility]) [address] [place] [address] WBC (Bld) [#/Vol] 6.52 10*3/uL Normal 4.00-10.[address] [facility] Comment on above: Performed By: #### L [id number] #### [facility] ([facility]) [address] [place] [address] MAGNESIUMon 01-28-2024 Magnesium [Mass/Vol] 1.8 mg/dL Low 1.9-2.7 [facility] Comment on above: Performed By: #### L [id number] ####[facility] ([facility])[address] [place] [address] PHOSPHORUSon 01-28-2024 Magnesium [Mass/Vol] 2.5 mg/dL Normal 2.5-5.0 [facility] Comment on above: Performed By: #### L [id number] ####[facility] ([facility])[address] [place] [address] POCT GLUCOSE METER UNSOLICIT ED RESULTSon 01-28-2024 Glucose [Mass/Vol] 258 mg/dL High 70-105 [facility] Comment on above: Order Comment: Waive d Testing in the ED is performed under the ED CLIA certificate #[id number]. Result Comment: [email or web address] Performed By: #### L [id number] #### [facility] ([facility]) [address] [place] [address] Glucose [Mass/Vol] 133 mg/dL High 70-105 [facility] Comment on above: Order Comment: Waive d Testing in the ED is performed under the ED CLIA certificate #[id number]. Result Comment: [email or web address] Performed By: #### L [id number] ####[facility] ([facility])[address] [place] [address] Glucose [Mass/Vol] 260 mg/dL High 70-105 [facility] Comment on above: Order Comment: Waive d Testing in the ED is performed under the ED CLIA certificate #[id number]. Result Comment: [email or web address] Performed By: #### L [id number] #### [facility] ([facility]) [address] [place] [address] Glucose [Mass/Vol] 140 mg/dL High 70-105 [facility] Comment on above: Order Comment: Waive d Testing in the ED is performed under the ED CLIA certificate #[id number]. Result Comment: [email or web address] Performed By: #### L [id number] ####[facility] ([facility]ER)[address] [place] [address] 30on 01-27-2024 30 Daily Case Managemen t Update Multidisciplinary rounds have been completed. 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 Pericardial drain remains in place. On amiodarone gtt. Plan to discharge home when medically cleared. Diet: Dietary Orders (From admission, onward) Start Ordered 01/26/24 1247 Special Kitchen Request Once Comments: Chicken noodle soup Fruit cup Diet coke Tilapia (plain) Leonard cake 01/26/24 1246 01/26/24 1246 Regular Diet Diabetic Male (carb 60g/meal) Diet effective now Question Answer Comment Room Service? Yes Carbohydrate restriction: Diabetic Male (carb 60g/meal) 01/26/24 1246 01/25/24 1713 Special Kitchen Request Once Comments: Roast beef, mashed pot., diet sprite, cookie 01/25/24 1712 Physician Expected Discharge Date: Discharge Delays: PT Six Click Score: 21 OT Six Click Score: 21 PT Recommendations: Home OT Recommendations: Home New Consults: Therapy Orders (From admission, onward) Start Ordered 01/26/24 1240 PT eval and treat Until therapy completed Question: Reason for PT? Answer: eval and treat 01/26/24 1241 01/26/24 1240 OT eval and treat Until therapy completed Question: Reason for OT? Answer: eval and treat 01/26/24 1241 Normal [facility] 30 The patient is Moder ately Stable - Low risk of patient condition declining or worsening The patient's goals for the shift include rest, comfort The clinical goals for the shift include VSS, decrease output from pericardial drain Over the shift, the patient did make progress toward the following goals. Pericardial drain output has decreased, current 24hr total is 20mLs. Problem: Cardiovascular - Adult Goal: Maintains optimal cardiac output and hemodynamic stability Outcome: Progressing Flowsheets (Taken 01/27/20241645) Maintains optimal cardiac output and hemodynamic stability: Monitor blood pressure and heart rate Monitor urine output and notify Licensed Independent Practitioner for values outside of normal range Assess for signs of decreased cardiac output Goal: Absence of cardiac dysrhythmias or at baseline Outcome: Progressing Flowsheets (Taken 01/27/20241645) Absence of cardiac dysrhythmias or at baseline: Monitor cardiac rate and rhythm Assess for signs of decreased cardiac output Administer antiarrhythmia medication and electrolyte replacement as ordered Normal [facility] BASIC METABOLIC PANELon 05-0 Anion gap [Moles/Vol] 11 mmol/L Normal 7-20 [facility] Comment on above: Performed By: #### L [id number] ####[facility] ([facility])[address] [place] [address] Calcium [Mass/Vol] 7.9 mg/dL Low 8.6-10.3 [facility] Comment on above: Performed By: #### L [id number] ####[facility] ([facility])[address] [place] [address] Chloride [Moles/Vol] 108 mmol/L High 98-107 [facility] Comment on above: Performed By: #### L [id number] ####[facility] ([facility])[address] [place] [address] CO2 [Moles/Vol] 22 mmol/L Normal 21-31 [facility] Comment on above: Performed By: #### L [id number] ####[facility] ([facility])[address] [place] [address] Creatinine [Mass/Vol] 1.31 mg/dL High 0.70-1.30 [facility] Comment on above: Performed By: #### L [id number] ####[facility] ([facility])[address] [place] [address] GLOMERULAR FILTRATION RATE ML/MIN/1.73 SQ M.PREDICTED 55.7 mL/min/1.73m*2 Low >60.0 [facility] Comment on above: Result Comment: The [facility]???s estimated glomerular filtration rate (eGFR) will no longer include consideration of race in its calculation. The National Kidney Foundation???s eGFR Task Force developed new recommendations for the estimation of the glomerular filtration rate in the [place] They recommend immediate implementation of the new equation refit without the race variable in all laboratories because the calculation does not include race. In addition to not including race in the calculation and reporting, it included diversity in its development, and has acceptable performance characteristics and potential consequences that do not disproportionately affect any one group of individuals. Performed By: #### L [id number] ####[facility] ([facility])[address] [place] [address] Glucose [Mass/Vol] 154 mg/dL High 70-100 [facility] Comment on above: Performed By: #### L [id number] ####[facility] ([facility])[address] [place] [address] Potassium [Moles/Vol] 3.6 mmol/L Normal 3.5-5.1 [facility] Comment on above: Performed By: #### L [id number] ####[facility] ([facility])[address] [facility] [place] [address] Sodium [Moles/Vol] 137 mmol/L Normal 136-145 [facility] Comment on above: Performed By: #### L [id number] ####[facility] ([facility])[address] [facility] [place] [address] Urea nitrogen [Mass/Vol] 30 mg/dL High 7-25 [facility] Comment on above: Performed By: #### L [id number] ####[facility] ([facility])[address] [place] [address] UREA NITROGEN/CREATININE (MASS RATIO) IN SER/PLAS 22.9 Normal [facility] Comment on above: Performed By: #### L [id number] ####[facility] ([facility])[address] [place] [address] CBCon 01-27-2024 Erythrocyte distribution width (RBC) [Ratio] 14.5 % Normal 11.5-15.0 [facility] Comment on above: Performed By: #### L [id number] #### [facility] ([facility]) [address] [place] [address] ERYTHROCYTE MEAN CORPUSCULAR HEMOGLOBIN CONCENTRATION (G/DL) BY AUTOMATED 32.2 g/dL Normal 32.0-35.0 [facility] Comment on above: Performed By: #### L [id number] #### [facility] ([facility]) [address] [place] [address] Hematocrit (Bld) [Volume fraction] 31.4 % Low 39.0-55.0 [facility] Comment on above: Performed By: #### L [id number] #### [facility] ([facility]) [address] [place] [address] Hemoglobin (Bld) [Mass/Vol] 10.1 g/dL Low 13.0-17.0 [facility] Comment on above: Performed By: #### L [id number] #### [facility] ([facility]) [address] [place] [address] MCH (RBC) [Entitic mass] 29.0 pg Normal 27.0-33.0 [facility] Comment on above: Performed By: #### L [id number] #### [facility] ([facility]) [address] [place] [address] MCV (RBC) [Entitic vol] 90.2 fL Normal 82.0-98.0 [facility] Comment on above: Performed By: #### L [id number] #### [facility] ([facility]) [address] [place] [address] PLATELETS (10*3/UL) IN BLOOD AUTOMATED COUNT 134 10*3/uL Low 150-400 [facility] Comment on above: Performed By: #### L [id number] #### [facility] ([facility]) [address] [place] [address] RBC (Bld) [#/Vol] 3.48 10*6/uL Low 4.20-5.[address] [facility] Comment on above: Performed By: #### L [id number] #### [facility] ([facility]) [address] [place] [address] WBC (Bld) [#/Vol] 8.70 10*3/uL Normal 4.00-10.[address] [facility] Comment on above: Performed By: #### L [id number] #### [facility] ([facility]) [address] [place] [address] MAGNESIUMon 01-27-2024 Magnesium [Mass/Vol] 2.0 mg/dL Normal 1.9-2.7 [facility] Comment on above: Performed By: #### L [id number] #### [facility] ([facility]) [address] [place] [address] NURSNOTEon 01-27-2024 NURSNOTE Patient Name: Tito Goncalves : 1945 Primary Care Physician: Augustine Metz MD Admission Date: 01/24/2024 RAPID RESPONSE TEAM ICU TRANSFER FOLLOW-UP NOTE SUBJECTIVE / OBJECTIVE: Follow-up for previous transfer out of the ICU notification for 01/25 at 1427. ASSESSMENT / INTERVENTIONS: Recent Vital Signs: Vitals: 01/27/24 0420 01/27/24 0800 01/27/24 1255 01/27/24 1610 BP: 107/59 117/62 109/54 118/66 Pulse: 70 65 67 73 Resp: 08 12 21 Temp: 36.4 ???C (97.5 ???F) 36.5 ???C (97.7 ???F) TempSrc: Temporal Temporal SpO2: 94% 93% 95% 97% Weight: 111 kg (244 lb 12.8 oz) Height: Latest Labs: Lab Results Component Value Date WBC 8.70 01/27/2024 WBC 12.08 (H) 01/26/2024 HGB 10.1 (L) 01/27/2024 HGB 10.6 (L) 01/26/2024 HCT 31.4 (L) 01/27/2024 HCT 33.2 (L) 01/26/2024 MCV 90.2 01/27/2024 MCV 91.2 01/26/2024 PLT 134 (L) 01/27/2024 PLT 123 (L) 01/26/2024 Lab Results Component Value Date GLUCOSE 154 (H) 01/27/2024 GLUCOSE 152 (H) 01/26/2024 CALCIUM 7.9 (L) 01/27/2024 CALCIUM 7.6 (L) 01/26/2024 NA 137 01/27/2024 NA 138 01/26/2024 K 3.6 01/27/2024 K 3.9 01/26/2024 CO2 22 01/27/2024 CO2 21 01/26/2024 CL 108 (H) 01/27/2024 CL 109 (H) 01/26/2024 BUN 30 (H) 01/27/2024 BUN 37 (H) 01/26/2024 CREATININE 1.31 (H) 01/27/2024 CREATININE 1.62 (H) 01/26/2024 EGFR 55.7 (L) 01/27/2024 EGFR 43.2 (L) 01/26/2024 BCR 22.9 01/27/2024 BCR 22.8 01/26/2024 Lab Results Component Value Date MG 2.0 01/27/2024 MG 1.9 01/26/2024 Lab Results Component Value Date PHOS 2.2 (L) 01/27/2024 PHOS 3.7 01/26/2024 No results found for: ALT , AST , GGT , ALKPHOS , BILITOT Lab Results Component Value Date INR 1.24 (H) 01/25/2024 INR 1.1 01/24/2024 Follow-up: Patient seen resting in bed. Primary RN consulted for follow up. The patient's labs and vitals are stable at this time. This morning the patient's serum phos was 2.2. The primary RN is aware. The primary RN voiced no concerns at this time. The scientific writer urged the primary RN to call the rapid team if any concerns arise overnight. Vic Euceda, RN Rapid Response Team Nurse [phone] 01/27/2024 9:04 PM Normal [facility] NURSNOTE Patient Name: Tito Goncalves : 1945 Primary Care Physician: Augustine Metz MD Admission Date: 01/24/2024 RAPID RESPONSE TEAM ICU TRANSFER FOLLOW-UP NOTE SUBJECTIVE / OBJECTIVE: Follow-up for previous transfer out of the ICU notification for 01/26/2024 at 1627. ASSESSMENT / INTERVENTIONS: Recent Vital Signs: Vitals: 01/26/24 19401/26/24204901/27/240 01/27/24 0800 BP: 99/62 107/59 117/62 BP Location: Right arm Patient Position: Lying Pulse: 82 70 65 Resp: 22 11 17 Temp: 36.7 ???C (98.1 ???F) 36.4 ???C (97.5 ???F) TempSrc: Temporal Temporal SpO2: 94% 92% 94% 93% Weight: 111 kg (244 lb 12.8 oz) Height: Latest Labs: Lab Results Component Value Date WBC 8.70 01/27/2024 WBC 12.08 (H) 01/26/2024 HGB 10.1 (L) 01/27/2024 HGB 10.6 (L) 01/26/2024 HCT 31.4 (L) 01/27/2024 HCT 33.2 (L) 01/26/2024 MCV 90.2 01/27/2024 MCV 91.2 01/26/2024 PLT 134 (L) 01/27/2024 PLT 123 (L) 01/26/2024 Lab Results Component Value Date GLUCOSE 154 (H) 01/27/2024 GLUCOSE 152 (H) 01/26/2024 CALCIUM 7.9 (L) 01/27/2024 CALCIUM 7.6 (L) 01/26/2024 NA 137 01/27/2024 NA 138 01/26/2024 K 3.6 01/27/2024 K 3.9 01/26/2024 CO2 22 01/27/2024 CO2 21 01/26/2024 CL 108 (H) 01/27/2024 CL 109 (H) 01/26/2024 BUN 30 (H) 01/27/2024 BUN 37 (H) 01/26/2024 CREATININE 1.31 (H) 01/27/2024 CREATININE 1.62 (H) 01/26/2024 EGFR 55.7 (L) 01/27/2024 EGFR 43.2 (L) 01/26/2024 BCR 22.9 01/27/2024 BCR 22.8 01/26/2024 Lab Results Component Value Date MG 2.0 01/27/2024 MG 1.9 01/26/2024 Lab Results Component Value Date PHOS 2.2 (L) 01/27/2024 PHOS 3.7 01/26/2024 No results found for: ALT , AST , GGT , ALKPHOS , BILITOT Lab Results Component Value Date INR 1.24 (H) 01/25/2024 INR 1.1 01/24/2024 Follow-up: Patient is sitting up in chair at the time of follow up, talking with family at bedside. Patient voices no concerns with care at this time. Vital signs are stable via gallery or museum technician and daily lab values are unremarkable. If emergent concerns arise, please call rapid response team. Dominga Millard RN Rapid Response Team Nurse [phone] 01/27/2024 12:15 PM Normal [facility] NURSNOTE Patient Name: Tito Goncalves : 1945 Primary Care Physician: Augustine Metz MD Admission Date: 01/24/2024 RAPID RESPONSE TEAM ICU TRANSFER FOLLOW-UP NOTE SUBJECTIVE / OBJECTIVE: Follow-up for previous transfer out of the ICU notification for 01/25 at 14:27. ASSESSMENT / INTERVENTIONS: Recent Vital Signs: Vitals: 01/26/24192901/26/24193401/26/24193901/26/242049 BP: 99/62 Pulse: (!) 128 84 82 Resp: 23 19 22 Temp: TempSrc: SpO2: 93% 93% 94% 92% Weight: Height: Latest Labs: Lab Results Component Value Date WBC 12.08 (H) 01/26/2024 WBC 13.57 (H) 01/25/2024 HGB 10.6 (L) 01/26/2024 HGB 11.0 (L) 01/25/2024 HCT 33.2 (L) 01/26/2024 HCT 34.5 (L) 01/25/2024 MCV 91.2 01/26/2024 MCV 90.6 01/25/2024 PLT 123 (L) 01/26/2024 PLT 191 01/25/2024 Lab Results Component Value Date GLUCOSE 152 (H) 01/26/2024 GLUCOSE 257 (H) 01/25/2024 CALCIUM 7.6 (L) 01/26/2024 CALCIUM 7.8 (L) 01/25/2024 NA 138 01/26/2024 NA 137 01/25/2024 K 3.9 01/26/2024 K 5.0 01/25/2024 CO2 21 01/26/2024 CO2 20 (L) 01/25/2024 CL 109 (H) 01/26/2024 CL 104 01/25/2024 BUN 37 (H) 01/26/2024 BUN 30 (H) 01/25/2024 CREATININE 1.62 (H) 01/26/2024 CREATININE 1.99 (H) 01/25/2024 EGFR 43.2 (L) 01/26/2024 EGFR 33.7 (L) 01/25/2024 BCR 22.8 01/26/2024 BCR 15.1 01/25/2024 Lab Results Component Value Date MG 1.9 01/26/2024 MG 1.8 (L) 01/25/2024 Lab Results Component Value Date PHOS 3.7 01/26/2024 No results found for: ALT , AST , GGT , ALKPHOS , BILITOT Lab Results Component Value Date INR 1.24 (H) 01/25/2024 INR 1.1 01/24/2024 Follow-up: Patient resting in bed comfortable at this time and in no apparent distress. Vital signs have been stable since transfer out of the ICU. Bedside nurse reported that he converted to NSR around 19:30 and has remained regular ever since. She also reported mildly low blood pressures after most recent pericardial drain drainage, however it is still WNL. Lab work from this morning is largely unremarkable. No other questions or concerns noted at this time, but encouraged to reach out to [employer] if anything changes overnight or with any further concerns. Suleman Ortiz RN Rapid Response Team Nurse [phone] 01/26/2024 10:20 PM Normal [facility] PHOSPHORUSon 01-27-2024 Magnesium [Mass/Vol] 2.2 mg/dL Low 2.5-5.0 [facility] Comment on above: Performed By: #### L [id number] #### [facility] ([facility]) [address] [place] [address] POCT GLUCOSE METER UNSOLICIT ED RESULTSon 01-27-2024 Glucose [Mass/Vol] 206 mg/dL High 70-105 [facility] Comment on above: Order Comment: Waive d Testing in the ED is performed under the ED CLIA certificate #[id number]. Result Comment: [email or web address] Performed By: #### L [id number] #### [facility] ([facility]) [address] [place] [address] Glucose [Mass/Vol] 187 mg/dL High 70-105 [facility] Comment on above: Order Comment: Waive d Testing in the ED is performed under the ED CLIA certificate #[id number]. Result Comment: [email or web address] Performed By: #### L [id number] #### [facility] ([employer]) [address] [place] [address] Glucose [Mass/Vol] 223 mg/dL High 70-105 [facility] Comment on above: Order Comment: Waive d Testing in the ED is performed under the ED CLIA certificate #[id number]. Result Comment: [email or web address] Performed By: #### L [id number] #### [facility] ([employer]) [address] [place] [address] Glucose [Mass/Vol] 160 mg/dL High 70-105 [facility] Comment on above: Order Comment: Waive d Testing in the ED is performed under the ED CLIA certificate #[id number]. Result Comment: [email or web address] Performed By: #### L [id number] #### [facility] ([employer]) [address] [place] [address] 30on 01-26-2024 30 Daily Case Managemen t Update Multidisciplinary rounds have been completed. Barriers to Discharge: 5/- pericardial drain in place, slight EDEN, wants drain output to be less than 25 cc before it is pulled. ECHO today. pt ot ordered. from home wants to return. CB Diet: Dietary Orders (From admission, onward) Start Ordered 01/26/24 1247 Special Kitchen Request Once Comments: Chicken noodle soup Fruit cup Diet coke Tilapia (plain) Leonard cake 01/26/24 1246 01/26/24 1246 Regular Diet Diabetic Male (carb 60g/meal) Diet effective now Question Answer Comment Room Service? Yes Carbohydrate restriction: Diabetic Male (carb 60g/meal) 01/26/24 1246 01/25/24 1713 Special Kitchen Request Once Comments: Roast beef, mashed pot., diet sprite, cookie 01/25/24 1712 Physician Expected Discharge Date: Discharge Delays: PT Six Click Score: 20 OT Six Click Score: PT Recommendations: OT Recommendations: New Consults: Therapy Orders (From admission, onward) Start Ordered 01/26/24 1240 PT eval and treat Until therapy completed Question: Reason for PT? Answer: eval and treat 01/26/24 1241 01/26/24 1240 OT eval and treat Until therapy completed Question: Reason for OT? Answer: eval and treat 01/26/24 1241 Normal [facility] BASIC METABOLIC PANELon 05-0 Anion gap [Moles/Vol] 12 mmol/L Normal 7-20 [facility] Comment on above: Performed By: #### L [id number] ####[facility] ([facility])[address] [place] [address] Calcium [Mass/Vol] 7.6 mg/dL Low 8.6-10.3 [facility] Comment on above: Performed By: #### L [id number] ####[facility] ([facility])[address] [place] [address] Chloride [Moles/Vol] 109 mmol/L High 98-107 [facility] Comment on above: Performed By: #### L [id number] ####[facility] ([facility])[address] [place] [address] CO2 [Moles/Vol] 21 mmol/L Normal 21-31 [facility] Comment on above: Performed By: #### L [id number] ####[facility] ([facility])[address] [place] [address] Creatinine [Mass/Vol] 1.62 mg/dL High 0.70-1.30 [facility] Comment on above: Performed By: #### L [id number] ####[facility] ([facility])[address] [place] [address] GLOMERULAR FILTRATION RATE ML/MIN/1.73 SQ M.PREDICTED 43.2 mL/min/1.73m*2 Low >60.0 [facility] Comment on above: Result Comment: The [facility]???s estimated glomerular filtration rate (eGFR) will no longer include consideration of race in its calculation. The National Kidney Foundation???s eGFR Task Force developed new recommendations for the estimation of the glomerular filtration rate in the [place] They recommend immediate implementation of the new equation refit without the race variable in all laboratories because the calculation does not include race. In addition to not including race in the calculation and reporting, it included diversity in its development, and has acceptable performance characteristics and potential consequences that do not disproportionately affect any one group of individuals. Performed By: #### L [id number] ####[facility] ([facility])[address] [place] [address] Glucose [Mass/Vol] 152 mg/dL High 70-100 [facility] Comment on above: Performed By: #### L [id number] ####[facility] ([facility])[address] [place] [address] Potassium [Moles/Vol] 3.9 mmol/L Normal 3.5-5.1 [facility] Comment on above: Performed By: #### L [id number] ####[facility] ([facility])[address] [place] [address] Sodium [Moles/Vol] 138 mmol/L Normal 136-145 [facility] Comment on above: Performed By: #### L [id number] ####[facility] ([facility])[address] [place] [address] Urea nitrogen [Mass/Vol] 37 mg/dL High 7-25 [facility] Comment on above: Performed By: #### L [id number] ####[facility] ([facility])[address] [place] [address] UREA NITROGEN/CREATININE (MASS RATIO) IN SER/PLAS 22.8 Normal [facility] Comment on above: Performed By: #### L [id number] ####[facility] ([facility])[address] [place] [address] CBCon 01-26-2024 Erythrocyte distribution width (RBC) [Ratio] 14.5 % Normal 11.5-15.0 [facility] Comment on above: Performed By: #### L [id number] #### [facility] ([facility]) [address] [place] [address] ERYTHROCYTE MEAN CORPUSCULAR HEMOGLOBIN CONCENTRATION (G/DL) BY AUTOMATED 31.9 g/dL Low 32.0-35.0 [facility] Comment on above: Performed By: #### L [id number] #### [facility] ([facility]) [address] [place] [address] Hematocrit (Bld) [Volume fraction] 33.2 % Low 39.0-55.0 [facility] Comment on above: Performed By: #### L [id number] #### [facility] ([facility]) [address] [place] [address] Hemoglobin (Bld) [Mass/Vol] 10.6 g/dL Low 13.0-17.0 [facility] Comment on above: Performed By: #### L [id number] #### [facility] ([facility]) [address] [place] [address] MCH (RBC) [Entitic mass] 29.1 pg Normal 27.0-33.0 [facility] Comment on above: Performed By: #### L [id number] #### [facility] ([facility]) [address] [place] [address] MCV (RBC) [Entitic vol] 91.2 fL Normal 82.0-98.0 [facility] Comment on above: Performed By: #### L [id number] #### [facility] ([facility]) [address] [place] [address] PLATELETS (10*3/UL) IN BLOOD AUTOMATED COUNT 123 10*3/uL Low 150-400 [facility] Comment on above: Performed By: #### L [id number] #### [facility] ([facility]) [address] [place] [address] RBC (Bld) [#/Vol] 3.64 10*6/uL Low 4.20-5.[address] [facility] Comment on above: Performed By: #### L [id number] #### [facility] ([facility]) [address] [place] [address] WBC (Bld) [#/Vol] 12.08 10*3/uL High 4.00-10.60 [facility] Comment on above: Performed By: #### L [id number] #### [facility] ([facility]) [address] [place] [address] MAGNESIUMon 01-26-2024 Magnesium [Mass/Vol] 1.9 mg/dL Normal 1.9-2.7 [facility] Comment on above: Performed By: #### L [id number] #### [facility] ([facility]) [address] [place] [address] PHOSPHORUSon 01-26-2024 Magnesium [Mass/Vol] 3.7 mg/dL Normal 2.5-5.0 [facility] Comment on above: Performed By: #### L [id number] #### [facility] ([facility]) [address] [place] [address] POCT GLUCOSE METER UNSOLICIT ED RESULTSon 01-26-2024 Glucose [Mass/Vol] 163 mg/dL High 70-105 [facility] Comment on above: Order Comment: Waive d Testing in the ED is performed under the ED CLIA certificate #[id number]. Result Comment: [email or web address] Performed By: #### L [id number] ####[facility] ([facility])[address] [place] [address] Glucose [Mass/Vol] 206 mg/dL High 70-105 [facility] Comment on above: Order Comment: Waive d Testing in the ED is performed under the ED CLIA certificate #[id number]. Result Comment: [email or web address] Performed By: #### L [id number] #### [facility] ([facility]) [address] [facility] [address] Glucose [Mass/Vol] 155 mg/dL High 70-105 [facility] Comment on above: Order Comment: Waive d Testing in the ED is performed under the ED CLIA certificate #[id number]. Result Comment: [email or web address] Performed By: #### L [id number] ####[facility] ([facility])[address] [place] [address] Glucose [Mass/Vol] 150 mg/dL High 70-105 [facility] Comment on above: Order Comment: Waive d Testing in the ED is performed under the ED CLIA certificate #[id number]. Result Comment: [email or web address] Performed By: #### L [id number] ####[facility] ([facility])[address] [place] [address] 30on 01-25-2024 30 Daily Case Managemen t Update Multidisciplinary rounds have been completed. Barriers to Discharge: 01/24- patient here for planned atrial appendage closure. Per morning meeting the patient fell this morning, presumably from hypotension (BP in 60s/70s). Gave patient fluids to rescusitate but was unsuccessful. Patient was started on levophed and brought to MICU. ECHO showed pericardia effusion, went to medical lab scientist this morning for pericardiocentesis. Patient has pericardial drain. May need pt ot given age but would anticipate home maybe with [facility]. CB Diet: Dietary Orders (From admission, onward) Start Ordered 01/24/24 1051 Regular Diet Diabetic Male (carb 60g/meal) Diet effective now Question Answer Comment Room Service? Yes Carbohydrate restriction: Diabetic Male (carb 60g/meal) 01/24/24 1050 Physician Expected Discharge Date: 01/25/2024 Discharge Delays: PT Six Click Score: 21 OT Six Click Score: PT Recommendations: OT Recommendations: New Consults: Normal [facility] 30 The patient is Moder ately Stable - Low risk of patient condition declining or worsening The patient's goals for the shift include comfort The clinical goals for the shift include VSS Problem: Safety - Adult Goal: Free from fall injury Outcome: Progressing Problem: Chronic Conditions and Co-morbidities Goal: Patient's chronic conditions and co-morbidity symptoms are monitored and maintained or improved Outcome: Progressing Normal [facility] BASIC METABOLIC PANELon 05-0 Anion gap [Moles/Vol] 18 mmol/L Normal 7-20 [facility] Comment on above: Performed By: #### L [id number] #### [facility] ([facility]) [address] [place] [address] Calcium [Mass/Vol] 7.8 mg/dL Low 8.6-10.3 [facility] Comment on above: Performed By: #### L [id number] #### [facility] ([facility]) [address] [place] [address] Chloride [Moles/Vol] 104 mmol/L Normal 98-107 [facility] Comment on above: Performed By: #### L [id number] #### [facility] ([facility]) [address] [place] [address] CO2 [Moles/Vol] 20 mmol/L Low 21-31 [facility] Comment on above: Performed By: #### L [id number] #### [facility] ([facility]) [address] [place] [address] Creatinine [Mass/Vol] 1.99 mg/dL High 0.70-1.30 [facility] Comment on above: Performed By: #### L [id number] #### [facility] ([facility]) [address] [place] [address] GLOMERULAR FILTRATION RATE ML/MIN/1.73 SQ M.PREDICTED 33.7 mL/min/1.73m*2 Low >60.0 [facility] Comment on above: Result Comment: The [facility]???s estimated glomerular filtration rate (eGFR) will no longer include consideration of race in its calculation. The National Kidney Foundation???s eGFR Task Force developed new recommendations for the estimation of the glomerular filtration rate in the [place] They recommend immediate implementation of the new equation refit without the race variable in all laboratories because the calculation does not include race. In addition to not including race in the calculation and reporting, it included diversity in its development, and has acceptable performance characteristics and potential consequences that do not disproportionately affect any one group of individuals. Performed By: #### L [id number] #### [facility] ([facility]) [address] [place] [address] Glucose [Mass/Vol] 257 mg/dL High 70-100 [facility] Comment on above: Performed By: #### L [id number] #### [facility] ([facility]) [address] [place] [address] Potassium [Moles/Vol] 5.0 mmol/L Normal 3.5-5.1 [facility] Comment on above: Performed By: #### L [id number] #### [facility] ([facility]) [address] [facility] [place] [address] Sodium [Moles/Vol] 137 mmol/L Normal 136-145 [facility] Comment on above: Performed By: #### L [id number] #### [facility] ([facility]) [address] [place] [address] Urea nitrogen [Mass/Vol] 30 mg/dL High 7-25 [facility] Comment on above: Performed By: #### L [id number] #### [facility] ([facility]) [address] [place] [address] UREA NITROGEN/CREATININE (MASS RATIO) IN SER/PLAS 15.1 Normal [facility] Comment on above: Performed By: #### L [id number] #### [facility] ([facility]) [address] [place] [address] BLOOD CULTUREon 01-25-2024 Bacteria identified Cx Nom (Bld) No growth at 5 days Normal [facility] Comment on above: Order Comment: Waive d Testing in the ED is performed under the ED CLIA certificate #[id number]. Performed By: #### L [id number] #### [facility] ([facility]) [address] [place] [address] Bacteria identified Cx Nom (Bld) No growth at 5 days Normal [facility] Comment on above: Performed By: #### L [id number] ####[facility] ([facility])[address] [place] [address] CBCon 01-25-2024 Erythrocyte distribution width (RBC) [Ratio] 14.1 % Normal 11.5-15.0 [facility] Comment on above: Performed By: #### L [id number] #### [facility] ([facility]) [address] [place] [address] ERYTHROCYTE MEAN CORPUSCULAR HEMOGLOBIN CONCENTRATION (G/DL) BY AUTOMATED 31.9 g/dL Low 32.0-35.0 [facility] Comment on above: Performed By: #### L [id number] #### [facility] ([facility]) [address] [place] [address] Hematocrit (Bld) [Volume fraction] 34.5 % Low 39.0-55.0 [facility] Comment on above: Performed By: #### L [id number] #### [facility] ([facility]) [address] [place] [address] Hemoglobin (Bld) [Mass/Vol] 11.0 g/dL Low 13.0-17.0 [facility] Comment on above: Performed By: #### L [id number] #### [facility] ([facility]) [address] [place] [address] MCH (RBC) [Entitic mass] 28.9 pg Normal 27.0-33.0 [facility] Comment on above: Performed By: #### L [id number] #### [facility] ([facility]) [address] [place] [address] MCV (RBC) [Entitic vol] 90.6 fL Normal 82.0-98.0 [facility] Comment on above: Performed By: #### L [id number] #### [facility] ([facility]) [address] [place] [address] PLATELETS (10*3/UL) IN BLOOD AUTOMATED COUNT 191 10*3/uL Normal 150-400 [facility] Comment on above: Performed By: #### L [id number] #### [facility] ([facility]) [address] [place] [address] RBC (Bld) [#/Vol] 3.81 10*6/uL Low 4.20-5.[address] [facility] Comment on above: Performed By: #### L [id number] #### [facility] ([facility]) [address] [place] [address] WBC (Bld) [#/Vol] 13.57 10*3/uL High 4.00-10.60 [facility] Comment on above: Performed By: #### L [id number] #### [facility] ([facility]) [address] [place] [address] CONSULTon 01-25-2024 CONSULT ------ -- Attestation signed by Lionel Mena MD at 01/26/2024 9:00 AM I agree with the findings as described with the following additions or corrections: Obstructive shock, secondary to acute pericardial effusion pericardial tamponade, status post drain placement by cardiology. Patient reports chest and shoulder pain after placement, EKG without new changes, troponin flat, discussed with cardiology, manage conservatively. Pending repeat echo. Vasopressor support if needed for MAP below 65, will need a stat echo in that scenario as well. Continue monitoring closely in ICU. Critical Care services were required for the patient due to critical condition: The patient is critically ill and requires high complexity decision making for assessment and support including: frequent evaluation and titration of therapies; extensive interpretation of multiple databases including chart review, review of patient's labs, independent interpretation of imaging findings; application of advanced monitoring technologies and assessment and treatment of complex metabolic derangement. Critical Care minutes were 34, which excludes time performing separately billed procedures, updating family, and teaching. -- Adult ICU Consult Patient - Tito Goncalves Age - 79 y.o. - 1945 [facility] # - [id number] Date of Admission - 01/24/2024 10:46 AM Chief Complaint Hypotension History of Present Illness Tito Goncalves is a 79 y.o. male born 1945. Mr. Goncalves is a 79-year-old male w/medical history significant for paroxysmal atrial fibrillation on warfarin, hypertension, type II diabetes mellitus, and CUBA who was admitted for elective left atrial appendage closure on 01/24/24. Procedure was performed without complication and patient was admitted to the [facility] for over night monitoring to be continued on ASA, plavix, and warfarin. This morning patient sustained a ground level fall. It is unclear if the fall was mechanical in nature or related to dizziness/lightheadedness associated w/hypotension. Following the fall, he was found to be hypotensive w/SBP in the 60s-70s despite IV fluid boluses. Patient endorses neck pain which is chronic, but denies headache, visual changes, chest pain, shortness of breath, abdominal pain. Right groin femoral access site is clean w/small amount of bruising and no overt induration/hematoma. Repeat labs ordered as well as CT head/neck/chest/abdomen/pe lvis. CTA chest/abdomen/pelvis were initially ordered, however will require prolonged delay as patient has reported hx of anaphylaxis to contrast and will require pre-treatment. Norepinephrine started w/plan to transfer to MICU. PMH: Patient has a past medical history of Abnormal ECG, Arrhythmia, Atrial fibrillation (CMS/HCC), Heart valve disease, Hypertension, and Sleep apnea. PSH: Patient has a past surgical history that includes Cardioversion; Cholecystectomy; Replacement total knee oncologic; and Knee surgery. SH: Patient reports that he has quit smoking. His smoking use included cigarettes. He has never used smokeless tobacco. He reports that he does not currently use alcohol. Alc/Tobacco/Drug: Patient reports that he does not currently use alcohol. reports that he has quit smoking. His smoking use included cigarettes. He has never used smokeless tobacco. has no history on file for drug use. Medications: Patient Current Facility-Administered Medications: amLODIPine (Norvasc) tablet 10 mg, 10 mg, oral, Daily, Lilibeth March MD aspirin EC tablet 81 mg, 81 mg, oral, q AM, Lilibeth March MD atorvastatin (Lipitor) tablet 10 mg, 10 mg, oral, q PM, Lilibeth March MD carvedilol (Coreg) tablet 12.5 mg, 12.5 mg, oral, BID with meals, Lilibeth March MD clonazePAM (KlonoPIN) tablet 1 mg, 1 mg, oral, Daily, Lilibeth March MD, 1 mg at 01/24/24 2211 clopidogrel (Plavix) tablet 75 mg, 75 mg, oral, Daily, Lilibeth March MD glucose chewable tablet 24 g, 24 g, oral, q15 min PRN OR dextrose 50 % in water (D50W) syringe 25 g, 25 g, intravenous, q15 min PRN, Lilibeth March MD insulin lispro (HumaLOG) injection 0-20 Units, 0-20 Units, subcutaneous, Before meals & nightly, Lilibeth March MD lisinopril tablet 10 mg, 10 mg, oral, Daily, Lilibeth March MD norepinephrine in sodium chloride 0.9 % (Levophed) 8 mg/250ml infusion, 0.01-2 mcg/kg/min, intravenous, Continuous, Kodak Benoit MD ondansetron ODT (Zofran-ODT) disintegrating tablet 4 mg, 4 mg, oral, q8h PRN OR ondansetron HCl (PF) (Zofran) injection 4 mg, 4 mg, intravenous, q6h PRN, Lilibeth March MD pantoprazole (ProtoNix) EC tablet 40 mg, 40 mg, oral, Daily, Lilibeth March MD propafenone (Rythmol) tablet 150 mg, 150 mg, oral, TID, Lilibeth March MD, 150 mg at 01/24/24 2211 sodium chloride 0.9 % bolus 250 mL, 250 mL, i (more content not included)... Normal [facility] CT CERVICAL SPINE WO IV CONT RASTon 01-25-2024 CT CERVICAL SPINE WO IV CONTRAST CT CERVICAL SPINE WO IV CONTRAST INDICATION: Hypotension, trauma, fall. TECHNIQUE: CT of the cervical spine without intravenous contrast. Sagittal and coronal reformats created and reviewed. All CT scans at this facility use dose modulation, iterative reconstruction, and/or weight based dosing when appropriate to reduce radiation dose to as low as reasonably achievable. COMPARISON: None. FINDINGS: OSSEOUS STRUCTURES: Atlantoaxial and atlantooccipital alignment is maintained. Vertebral body heights are maintained. Posterior elements are intact. Intervertebral disc space narrowing throughout the lower cervical spine and most prominent at C6-C7. Large anterior osteophytes C3-C7. Left-sided predominant facet degenerative changes throughout the cervical spine. OTHER: Included lung apices are unremarkable, without visualized apical pneumothorax No visualized paraspinal soft tissue hematoma/edema. IMPRESSION: Multilevel degenerative spondylosis without evidence of acute fracture or traumatic malalignment of the cervical spine. Diffuse idiopathic skeletal hyperostosis is noted. Consider MRI if you suspect occult process. Approved by:Ryan Corrigan01/25/2024 6:22 AM. I, Trenton Martinez,have reviewed the image(s) and agree with the findings in this report. Electronically signed: Trenton Martinez. 9 Invalid Interpretation Code [facility] CT CHEST WO IV CONTRASTon CT CHEST WO IV CONTRAST CT CHEST WO IV CONTRAST 01/25/2024 5:34 AM CLINICAL HISTORY: Fall, hypotension, blunt chest trauma COMPARISON: None. TECHNIQUE: CT chest was performed without the use of IV contrast. Automated exposure control was utilized. All CT scans at this facility use dose modulation, iterative reconstruction, and/or weight based dosing when appropriate to reduce radiation dose to as low as reasonably achievable. FINDINGS: LUNG/PLEURA: Mucous within the trachea. Dependent basilar atelectasis. No focal consolidation, pleural effusion, or pneumothorax. HEART and GREAT VESSELS: Small to moderate sized pericardial effusion. The heart is not significantly enlarged. Device in place within the left atrium. Small to moderate coronary artery calcifications. Thoracic aorta is not significantly dilated. MEDIASTINUM and LYMPH NODES: Calcified subcarinal and left hilar lymph nodes compatible with sequela of chronic granulomatous disease. UPPER ABDOMEN: Concentric esophageal wall thickening. MUSCULOSKELETAL AND LOWER NECK No evidence of acute fracture. Diffuse idiopathic skeletal hyperostosis of the thoracic spine. Bilateral glenohumeral joint osteoarthrosis. IMPRESSION: *Small to moderate-sized pericardial effusion. *Concentric esophageal wall thickening, likely reflux esophagitis. Approved by:Ryan Corrigan01/25/2024 6:40 AM. Trenton Julio,have reviewed the image(s) and agree with the findings in this report. Electronically signed: Trenton Martinez. 5 Invalid Interpretation Code [facility] CT HEAD WO IV CONTRASTon CT HEAD WO IV CONTRAST CT HEAD WO IV CONTRAST 01/25/2024 5:34 AM SIGNS AND SYMPTOMS: Hypotension, trauma, fall TECHNIQUE:Multi-detector CT axial slices of the brain were obtained without IV contrast. All CT scans at this facility use dose modulation, iterative reconstruction, and/or weight based dosing when appropriate to reduce radiation dose to as low as reasonably achievable COMPARISON: None. FINDINGS: No evidence of acute intracranial hemorrhage or extra-axial fluid collection. Mild burden of subcortical and periventricular white matter hypodensities compatible with chronic microvascular ischemic changes. No mass, mass effect, or shift of midline structures. Mildly prominent ventricles and cerebral sulci compatible senescent changes. No depressed calvarial fractures. IMPRESSION: No acute intracranial abnormality. Consider MRI if you suspect occult process. Approved by:Ryan Corrigan01/25/2024 6:17 AM. Trenton Julio,have reviewed the image(s) and agree with the findings in this report. Electronically signed: Ternton Martinez. 1 Invalid Interpretation Code [facility] HPon 01-25-2024 HP H&P reviewed. The anthony parsons was examined and there are no changes to the H&P. 79-year-old man with history of paroxysmal atrial fibrillation s/p Amulet Amplatzer placed on 01/24/24 who developed hypotensive overnight requiring Levophed. Echo was done which showed moderate pericardial effusion, and plan is to perform pericardiocentesis. I explained the risks and benefits of the procedure. He would like to proceed. Normal [facility] LACTIC ACID WITH 4 HOUR REFL EXon 01-25-2024 LACTATE (MMOL/L) IN SER/PLAS 2.1 mmol/L Normal 0.5-2.2 [facility] Comment on above: Performed By: #### L [id number] #### [facility] ([facility]) [address] [place] [address] LACTATE (MMOL/L) IN SER/PLAS 3.3 mmol/L Critically high 0.5-2.2 [facility] Comment on above: Performed By: #### L [id number] ####[facility] ([facility])[address] [place] [address] MAGNESIUMon 01-25-2024 Magnesium [Mass/Vol] 1.8 mg/dL Low 1.9-2.7 [facility] Comment on above: Performed By: #### L [id number] #### [facility] ([facility]) [address] [place] [address] POCT GLUCOSE METER UNSOLICIT ED RESULTSon 01-25-2024 Glucose [Mass/Vol] 164 mg/dL High 70-105 [facility] Comment on above: Order Comment: Waive d Testing in the ED is performed under the ED CLIA certificate #[id number]. Result Comment: tful [email or web address] Performed By: #### L [id number] ####[facility] ([facility])[address] [place] [address] Glucose [Mass/Vol] 134 mg/dL High 70-105 [facility] Comment on above: Order Comment: Waive d Testing in the ED is performed under the ED CLIA certificate #[id number]. Result Comment: amur tad Performed By: #### L [id number] ####[facility] ([facility])[address] [place] [address] Glucose [Mass/Vol] 167 mg/dL High 70-105 [facility] Comment on above: Order Comment: Waive d Testing in the ED is performed under the ED CLIA certificate #[id number]. Result Comment: amrosina tad Performed By: #### L [id number] #### [facility] ([facility]) [address] [place] [address] Glucose [Mass/Vol] 208 mg/dL High 70-105 [facility] Comment on above: Order Comment: Waive d Testing in the ED is performed under the ED CLIA certificate #[id number]. Result Comment: amrosina tad Performed By: #### L [id number] #### [facility] ([facility]) [address] [place] [address] Glucose [Mass/Vol] 270 mg/dL High 70-105 [facility] Comment on above: Order Comment: Waive d Testing in the ED is performed under the ED CLIA certificate #[id number]. Result Comment: nbow en Performed By: #### L [id number] ####[facility] ([facility])[address] [place] [address] PROCALCITONIN TESTon 05-2 024 PROCALCITONIN IN BLOOD 0.05 ng/mL Normal 0.00-0.10 [facility] Comment on above: Result Comment: Susp ected Lower Respiratory Tract Infection: 0.1-0.25 ng/mL - Low likelihood for bacterial infection;Antibiotics discouraged.* >0.25 ng/mL - Increased likelihood bacterial infection;Antibiotics encouraged. Suspected Sepsis: Strongly consider initiating antibiotics in all unstable patients. 0.1-0.5 ng/mL - Low likelihood for sepsis; Antibiotics discouraged.* >0.5 ng/mL - Increased likelihood sepsis; Antibiotics encouraged. >2.0 ng/mL - High risk of sepsis/septic shock; Antibiotics strongly encouraged. *Recommend retesting PCT within 6-12 hours if clinically indicated and initial PCT<0.5ng/mL Performed By: #### L [id number] #### [facility] ([facility]) [address] [place] [address] PROTIME-INRon 01-25-2024 INR IN PPP BY COAGULATION ASSAY 1.24 High 0.90-1.10 [facility] Comment on above: Result Comment: ACCC P RECOMMENDED INR FOR WARFARIN THERAPY CONDITION INR PROPHYLAXIS OF VENOUS THROMBOSIS 2-3 (HIGH-RISK SURGERY) TREATMENT OF VENOUS THROMBOSIS 2-3 TREATMENT OF PULMONARY EMBOLISM 2-3 PREVENTION OF SYSTEMIC EMBOLISM: 2-3 ACUTE MYOCARDIAL INFARCTION TISSUE HEART VALVES VALVULAR HEART DISEASE ATRIAL FIBRILLATION RECURRENT SYSTEMIC EMBOLISM MECHANICAL HEART VALVE 2.5-3.5 FROM: ORAL ANTICOAGULANTS. MECHANISM OF ACTION, CLINICAL EFFECTIVENESS, AND OPTIMAL THERAPEUTIC RANGE. CHEST 1995;108:231S-246S. Performed By: #### L [id number] #### [facility] ([facility]) [address] [place] [address] PROTHROMBIN TIME (PT) IN PPP BY COAGULATION ASSAY 15.7 Seconds High 12.3-14.8 [facility] Comment on above: Performed By: #### L [id number] #### [facility] ([facility]) [address] [place] [address] TROPONIN Ion 01-25-2024 Troponin I.cardiac [Mass/Vol] 0.84 ng/mL Critically high 0.00-0.04 [facility] Comment on above: Performed By: #### L [id number] #### [facility] [address] [place] [address] BASIC METABOLIC PANELon 12-27 Anion gap [Moles/Vol] 13 mmol/L Normal 7-20 [facility] Comment on above: Performed By: #### L [id number] ####[facility] ([facility])[address] [place] [address] Calcium [Mass/Vol] 8.8 mg/dL Normal 8.6-10.3 [facility] Comment on above: Performed By: #### L [id number] ####[facility] ([facility] [place] [address] Chloride [Moles/Vol] 103 mmol/L Normal 98-107 [facility] Comment on above: Performed By: #### L [id number] ####[facility] ([facility])[address] [place] [address] CO2 [Moles/Vol] 25 mmol/L Normal 21-31 [facility] Comment on above: Performed By: #### L [id number] ####[facility] ([facility])[address] [place] [address] Creatinine [Mass/Vol] 1.26 mg/dL Normal 0.70-1.30 [facility] Comment on above: Performed By: #### L [id number] ####[facility] ([facility])[address] [place] [address] GLOMERULAR FILTRATION RATE ML/MIN/1.73 SQ M.PREDICTED 58.4 mL/min/1.73m*2 Low >60.0 [facility] Comment on above: Result Comment: The [facility]???s estimated glomerular filtration rate (eGFR) will no longer include consideration of race in its calculation. The National Kid[employer] Foundation???s eGFR Task Force developed new recommendations for the estimation of the glomerular filtration rate in the [place] They recommend immediate implementation of the new equation refit without the race variable in all laboratories because the calculation does not include race. In addition to not including race in the calculation and reporting, it included diversity in its development, and has acceptable performance characteristics and potential consequences that do not disproportionately affect any one group of individuals. Performed By: #### L [id number] ####[facility] ([facility])[address] [place] [address] Glucose [Mass/Vol] 184 mg/dL High 70-100 [facility] Comment on above: Performed By: #### L [id number] ####[facility] ([facility])[address] [place] [address] Potassium [Moles/Vol] 4.3 mmol/L Normal 3.5-5.1 [facility] Comment on above: Performed By: #### L [id number] ####[facility] ([facility])[address] [place] [address] Sodium [Moles/Vol] 137 mmol/L Normal 136-145 [facility] Comment on above: Performed By: #### L [id number] ####[facility] ([facility])[address] [place] [address] Urea nitrogen [Mass/Vol] 21 mg/dL Normal 7-25 [facility] Comment on above: Performed By: #### L [id number] ####[facility] ([facility])[address] [place] [address] UREA NITROGEN/CREATININE (MASS RATIO) IN SER/PLAS 16.7 Normal [facility] Comment on above: Performed By: #### L [id number] ####[facility] ([facility])[address] [place] [address] HPon 01-24-2024 HP History Of Present I llbrendon Tito Goncalves is a 79 y.o. male presenting for ARLETTE occlusion. He is a 79-year-old man with history of paroxysmal atrial fibrillation, it started in 2012. He is maintained on warfarin for anticoagulation and propafenone for rhythm control. He has history of hypertension on treatment. He has history of obstructive sleep apnea. He has diabetes and used to be on metformin but currently controlled on diet. In April 2019 he presented to the [facility] with atrial fibrillation with controlled ventricular response. In December 2022 he fell and sustained a subsequent brain bleed. He was placed back on warfarin few weeks later. He then fell again recently and was evaluated in the emergency room because of head trauma and abrasions to the face. He had a shared decision making with Dr Maggy Murphy and both agreed that ARLETTE occlusion is a good alternative to anticoagulation for him. Past Medical History He has a past [...] No history on file for drug use. Allergies Iodine, Penicillins, Shellfish containing products, and Sulfa (sulfonamide antibiotics) Medications Medications Prior to Admission Medication Sig Dispense Refill Last Dose amLODIPine (Norvasc) 10 mg tablet Take 1 tablet by mouth in the morning. 01/24/2024 aspirin 81 mg EC tablet Take 1 tablet every day by oral route. 01/24/2024 atorvastatin (Lipitor) 10 mg tablet Take 1 tablet by mouth in the evening. 01/24/2024 benazepril (Lotensin) 20 mg tablet Take 1 tablet by mouth in the morning. 01/24/2024 carvedilol (Coreg) 12.5 mg tablet Take 1 tablet (12.5 mg) by mouth with breakfast and with evening meal. 180 tablet 3 01/24/2024 clonazePAM (KlonoPIN) 1 mg tablet 01/24/2024 omeprazole (PriLOSEC) [address] capsule Take 1 capsule every day by oral route for 90 days. 01/24/2024 propafenone (Rythmol) 150 mg tablet Take 1 tablet (150 mg) by mouth in the morning, at noon, and at bedtime. 270 tablet 3 01/24/2024 traZODone (Desyrel) 50 mg tablet Take 1 tablet by mouth at bedtime. 01/23/2024 warfarin (Coumadin) 7.5 mg tablet Take 7.5 mg by mouth in the morning. Past Week Review of Systems Cardiovascular: Positive for leg swelling (resolves by morning). Hematologic/Lymphatic: Bruises/bleeds easily. Musculoskeletal: Positive for arthritis, back pain, falls and myalgias. All other systems reviewed and are negative. Physical Exam Constitutional: Appearance: He is well-developed. [...] Behavior: Behavior is cooperative. Judgment: Judgment normal. Last Recorded Vitals Blood pressure 173/84, pulse 82, resp. rate 17, height 1.829 m (6'), weight 112 kg (248 lb), SpO2 96 %. Relevant Results ECG 02/28/2023: Sinus bradycardia, QTc 425 ms. Echocardiogram 05/07/2021: Global left ventricular systolic function is normal. Mild diastolic dysfunction. Mild to moderate dilatation of the ascending aorta measuring 4.3 cm. Mild mitral and tricuspid regurgitation. Normal right-sided pressures. Lexiscan stress test 05/07/2021: Conclusion: No reversible ischemia. Normal exercise test. ECHO 04/2019: EF 50-55%, mild MR NM stress test 04/2019: negative for ischemia EKG 05/07/2019: Atrial fibrillation. Heart rate 85 BPM. Nonspecific T-wave abnormalities. Echocardiogram 10/26/2016:Global left ventricular systolic function is normal (Visually estimated EF 60%). Left ventricular wall thickness is mildly increased. Concentric cardiac remod (more content not included)... Normal [facility] MRSA/MSSA DNA NASALon 2023 MRSA DNA Negative Normal Negative [facility] Comment on above: Order Comment: Waive d Testing in the ED is performed under the ED CLIA certificate #[id number]. Performed By: #### L [id number] #### [facility] ([facility]) [address] [place] [address] MSSA DNA Negative Normal Negative [facility] Comment on above: Order Comment: Waive d Testing in the ED is performed under the ED CLIA certificate #[id number]. Performed By: #### L [id number] #### [facility] ([facility]) [address] [place] [address] NURSNOTEon 01-24-2024 NURSNOTE CHG wipes completed. Normal [facility] POCT GLUCOSE METER UNSOLICIT ED RESULTSon 01-24-2024 Glucose [Mass/Vol] 146 mg/dL High 70-105 [facility] Comment on above: Order Comment: Waive d Testing in the ED is performed under the ED CLIA certificate #[id number]. Result Comment: [email or web address] [email or web address] Performed By: #### L [id number] #### [facility] ([facility]) [address] [place] [address] TYPE AND SCREENon 01-24-2024 AB SCREEN Negative Normal [facility] Comment on above: Performed By: #### L [id number] ####[facility], ABO group Nom (Bld) A Normal [facility] Comment on above: Performed By: #### L [id number] ####[facility], RH TYPE IN BLOOD Positive Normal [facility] Comment on above: Performed By: #### L [id number] ####[facility], Basophils Auto (Bld) [#/Vol] on 01-18-2024 Basophils (Bld) [#/Vol] 0.0 10 3/uL 0.0-0.1 [facility] [facility] Bas[facility]/100 WBC Auto (Bld) on 01-18-2024 Basophils/100 WBC (Bld) 0.4 % 0.2-2.0 [facility] Eosinophils/100 WBC Auto (Bl d)on 01-18-2024 Eosinophils/100 WBC (Bld) 2.3 % 0.9-7.0 [facility] Erythrocyte distribution wid th Auto (RBC) [Ratio]on 01-18-2024 Erythrocyte distribution width (RBC) [Ratio] 13.6 % 11.0-15.0 [facility] Estimated glomerular filtrat ion rate (GFR) non- Americanon 01-18-2024 GFR/1.73 sq M.predicted among non-blacks MDRD (S/P/Bld) [Vol rate/Area] 48 mL/min/{1.73_m2} >=60 [facility] Hematocrit Auto (Bld) [Volum e fraction]on 01-18-2024 Hematocrit (Bld) [Volume fraction] 37.0 % 42.0-54.0 [facility] Hemoglobin [Mass/volume] in Bloodon 01-18-2024 Hemoglobin (Bld) [Mass/Vol] 11.7 g/dL 14.0-18.0 [facility] Laboratory - Chemistry and C hemistry - challengeon 01-18-2024 Calcium [Mass/Vol] 8.6 mg/dL 8.5-10.1 [facility] Chloride [Moles/Vol] 103 mmol/L 98-107 [facility] CO2 [Moles/Vol] 30.4 mmol/L 21.0-32.0 [facility] Creatinine [Mass/Vol] 1.44 mg/dL 0.70-1.30 [facility] GFR/1.73 sq M.predicted MDRD (S/P/Bld) [Vol rate/Area] 58 mL/min/{1.73_m2} >=60 [facility] Glucose [Mass/Vol] 140 mg/dL 74-106 [facility] Potassium [Moles/Vol] 4.5 mmol/L 3.5-5.1 [facility] Sodium [Moles/Vol] 140 mmol/L 136-145 [facility] Urea nitrogen [Mass/Vol] 17.0 mg/dL 7.0-18.0 [facility] Urea nitrogen/Creatinine [Mass ratio] 11.8 mg/mg [facility] Laboratory - Hematology and Cell countson 01-18-2024 Immature granulocytes/100 WBC (Bld) 0.0 % 0.0-0.5 [facility] Leukocytes [#/volume] correc iván for nucleated erythrocytes in Blood by Automated counon 01-18-2024 WBC corrected for nucl RBC Auto (Bld) [#/Vol] 4.8 10 3/uL 4.0-11.0 [facility] Lymphocytes Auto (Bld) [#/Vo l]on 01-18-2024 Lymphocytes (Bld) [#/Vol] 1.6 10 3/uL 1.2-3.8 [facility] Lymphocytes/100 WBC Auto (Bl d)on 01-18-2024 Lymphocytes/100 WBC (Bld) 33.8 % 20.5-60.0 [facility] MCH Auto (RBC) [Entitic mass ]on 01-18-2024 MCH (RBC) [Entitic mass] 28.3 pg 25.9-34.0 [facility] MCHC Auto (RBC) [Mass/Vol]on 01-18-2024 MCHC (RBC) [Mass/Vol] 31.6 g/dL 29.9-35.2 [facility] MCV Auto (RBC) [Entitic vol] on 01-18-2024 MCV (RBC) [Entitic vol] 89.6 fL 80.0-94.0 [facility] Monocytes Auto (Bld) [#/Vol] on 01-18-2024 Monocytes (Bld) [#/Vol] 0.6 10 3/uL 0.3-0.8 [facility] Monocytes/100 WBC Auto (Bld) on 01-18-2024 Monocytes/100 WBC (Bld) 11.8 % 1.7-12.0 [facility] Neutrophils Auto (Bld) [#/Vo l]on 01-18-2024 Neutrophils (Bld) [#/Vol] 2.5 10 3/uL 1.4-6.5 [facility] Neutrophils/100 WBC Auto (Bl d)on 01-18-2024 Neutrophils/100 WBC (Bld) 51.7 % 43.0-75.0 [facility] No Panel Informationon 01-17 Eosinophils # (Auto) 0.1 10 3/uL 0.0-0.7 [facility] Immature Granulocyte # (Auto) 0.00 10 3/uL 0.00-0.03 [facility] Orders Onlyon 01-18-2024 Orders Only [id number] Amina Goncalves 1945 M Date Provider Department Center 01/18/2024 [facility]Y [facility] HeartVAS Family History Problem Relation Age of Onset Cancer Mother Heart attack Other Family Status - Relation Status Age at Mother Other Normal [facility] Platelet mean volume Auto (B ld) [Entitic vol]on 01-18-2024 Platelet mean volume (Bld) [Entitic vol] 11.4 fL 9.5-13.5 [facility] Platelets Auto (Bld) [#/Vol] on 01-18-2024 Platelets (Bld) [#/Vol] 186 10 3/uL 150-450 [facility] RBC Auto (Bld) [#/Vol]on RBC (Bld) [#/Vol] 4.13 10 6/uL 4.70-6.10 [facility] Serum or plasma anion gap de terminationon 01-18-2024 Anion gap [Moles/Vol] 11.1 mmol/L [facility] Prep for Procedureon 024 Prep for Procedure [id number] Amina Goncalves 1945 M Date Provider Department Center 11/24/2023 MADISON MOSES [facility] Family History Problem Relation Age of Onset Cancer Mother Heart attack Other Family Status - Relation Status Age at Mother Other Normal [facility] Optical coherence tomography study reporton 10-28-2023 [facility] Radiology Study observation (narrative) [facility] Prep for Procedureon 024 Prep for Procedure [id number] Amina Goncalves e R 1945 M Date Provider Department Center 10/27/2023 MADISON MOSES Family History Problem Relation Age of Onset Cancer Mother Heart attack Other Family Status - Relation Status Age at Mother Other Normal [facility] Orders Onlyon 10-25-2023 Orders Only [id number] Amina Goncalves e R 1945 M Date Provider Department Center 10/25/2023 MADISON MOSES Family History Problem Relation Age of Onset Cancer Mother Heart attack Other Family Status - Relation Status Age at Mother Other Normal [facility] Office Visiton 10-24-2023 Follow-up visit [id number] Amina Goncalves e R 1945 M Date Provider Department Center 10/24/2023 [id number]-MINGO, MAGGY CARD [facility] Family History Problem Relation Age of Onset Cancer Mother Heart attack Other Family Status - Relation Status Age at Mother Other Level of Service:70401 IN OFFICE/OUTPATIENT ESTABLISHED LOW MDM 20 MIN Normal [facility] Prep for Procedureon 024 Prep for Procedure [id number] Amina Goncalves e R 1945 M Date Provider Department Center 10/17/2023 MADISON MOSES Family History Problem Relation Age of Onset Cancer Mother Heart attack Other Family Status - Relation Status Age at Mother Other Normal [facility] 36on 10-05-2023 36 Patient underwent hi s pre-LAAO JESSICA. He is a candidate for an occlusive device. Spoke to patient regarding next steps. He needs to have shared decision documentation with another physician. He will be seeing his primary income auditor in a couple weeks. Discussed possible procedure date of 11/01/2023. He states he would consider this and would further discuss with his daughter. Of note, he is planning a trip to [place] for 1 month mid October and he will return the end of November. [facility] Telephoneon 10-05-2023 Telephone [id number] Amina Goncalves 1945 M Date Provider Department Center 10/05/2023 MADISON MOSES TIMO Cline Family History Problem Relation Age of Onset Cancer Mother Heart attack Other Family Status - Relation Status Age at Mother Other [facility] ANESon 09-16-2023 ANES ------ -- Attestation signed by [...] 09/16/23 0900 Procedure: TRANSESOPHAGEAL ECHO (JESSICA) Location: [facility] Vascular Lab Clinical information reviewed: Allergies Meds Physical Exam Airway Mallampati: II Cardiovascular Rhythm: regular Rate: normal Dental Pulmonary Breath sounds clear to auscultation Abdominal Anesthesia Plan ASA 3 other (Moderate sedation) Anesthetic plan and risks discussed with patient. Use of blood products discussed with patient who. Plan discussed with fellow and attending. [facility] ------ -- Attestation signed by Hortencia [...] there are no changes to the H&P. [facility] NURSNOTEon 09-16-2023 NURSNOTE RN educated pt on d/ c instructions. RN encouraged pt to voice any questions or concerns. Pt verbalizes no questions or concerns at this time. Normal [facility] NURSNOTE Bedside swallow stud y completed and passed. Normal [facility] Telephoneon 09-15-2023 Telephone [id number] Oliver Goncalvesnick Blackman 1945 M Date Provider Department Center 09/15/2023 [facility]Y [facility] VAS LAB [facility] HeartVAS Family History Problem Relation Age of Onset Cancer Mother Heart attack Other Family Status - Relation Status Age at Mother Other Normal [facility] 09-06-[address] [facility] Cardiology - [facility] Subjective Tito Goncalves is a 78 y.o. year old male patient being seen to discuss LAAO. He presented to [facility] ED in Jun 2023 for fall. He is anticoagulated with warfarin for afib. Back in December 2022 he had brain bleed s/p fall. Was treated at [facility]. He denies chest pain, SOB, and lightheadedness/syncope. [...] In April 2019 he presented to the [facility] with atrial fibrillation with controlled ventricular [...] 1 tablet (more content not included)... Normal [facility] Office Visiton 09-06-2023 Follow-up visit [id number] Amina Goncalves Yehuda 1945 M Date Provider Department Center 09/06/2023 OLIVER RUELAS TIMO [facility] Family History Problem Relation Age of Onset Cancer Mother Heart attack Other Family Status - Relation Status Age at Mother Other Level of Service:31628 IN OFFICE/OUTPATIENT ESTABLISHED HIGH MDM 40-54 MIN Normal [facility] Coding Summaryon 07-11-2023 Coding Summary HTMLBase 64 BtsetnsjQNj9zWs+PGhlYWQ+PE 2PSHVgK71qmNPceL2uS1QJYXzU LtgxCGZTYLpWTpBtcjOwVU0reK NjZXJu IC8+TD7hZRDmAmebqYUzh6M8rA A6S47ilu3lHTyhcNK2DZYsUbLm vznue8btbFv0KUgsCmauRkPg JFTsyA80ILW1iB32Av38eVMbrZ Hjy8pkkTw0ShBxFTDhGHK6mDfg XLwio4UzKZKaX13psJRgu2L0 NGAdcQkwcLHlAaTzpCS4gO7uTS njiibcd1hucxhzKec7sb52sXGt a8L9aJL6G7RwkpI8YHXzwYNz QuiepFXAmZ1lriely1hginwyQa UzDPErZJd5KBk8SIGgwFiaNhDd RL93SBO1QKTzjrPhW8JnYASk fYbtLzE6g0E7Aj8RG2LXMzuyM8 VNTUFSWTwvdGQ+HM95wx31R5Ye PxyiXam7NYAgQKC7fYU9pW5w ZNMyEXcvh4I1qEW3W0MuycTjwb 7pm7ozFEIaWOxlK78ycDStg9K7 CPLoiWG2UKDceIgpAmPqlW80 Oyc+EWBtnChve0UyYplqr9udn3 vqkSg9OsdlJJQjlzXwnKjvQUB2 e1GoHz0mVQAyzUD3zWY6dI7o KeJiGfR8PVfmA187EvChdHKzWy yiG91wA0FlrEP+GOQdVck6JUPx qWnsTJ2qY8WpGTQpemmbtGXk yTgsNZ9wRUApzkxmKEYbyL3pIH NxV3p3RaNeObZ6DNuyR8PtNEKx kcjlFs17gN7rDcQgJfO6PKro G6BffiQ1QDOvcLKsGRveYJQ4Y0 9lb7P8SUYgULBsCOL9cQU0dG8u bGlnbjogbGVmdDsgdmVydGlj YFzdIBtxE849MBXkqTnyGvFbWQ luZyBEYXRlOiAgMTAvMTYvMjAy MzwvdGQ+EFNcQYP7tLytDIJk aFFdIGvlVy3fqJxhzIlsHR2zCN AaenaqCLRhaT0rZGNhgKRbiEms IQ2iCSTrgntqo287YzPeHZL5 CLSpsIFsN3CttX0iRsLaDXRuTV HaV6LrdXBePHwgJ367DOopSfJ1 APOnhlSuH4UoSJDbgDyaKoJ9 q0Z8Xc1Qc6UihxmbD2FjoXNtEh GdUxdwMHd9T4RcHwzzeBK+PC90 YLXzSJ96AVd6WZG1cNjcFUms IMOiM4IheP8kXaDrSSQzJTShXq c+PHRhYmxlIHdpZHRoPScxMDAl BuGhaPuwHM8lEq1vFCToWQXo nXjupLDhMkZxm2aqHPQvHNqaUQ 1ybArdE9OsnTO3QTDxd5n7Dj85 B11mP1LkfYS+EYVuvTP3xRR1 rX0nFqPtTxC5KOkgK905ZuVdcC VwHwaai1jeu6wwuYs0KaN8CEEa wvYrxOhgLAZ5r8KtSb94C72t IHdpZHRoPSIxNSUiIHZhbGlnbj 0hvP3sXa2+LPIigOC6cQJ9wN8p ScAtUaB6OMlkN884OnGsnPXi Rutks7ibn8uxtPk1DhKnGFVaas OvuYfaMFF1r8EvYe03N4EacIui x2CqTcy0xi97qBGll6V5xUV1 Q4JxZEHhhukcqOSawApsKL8vWT TsldfqCSMsqL9mYAMuI8o9VtJt PvE6VCofZ2BfxyP5YAYreDIt PCNtuOPVnU8rpyvyk8xlzmfsJo TaMDIcBIr1KDj5OBYbaQqlJpAt JLM2EhE2PXF0xTRcrR4fkHud fadqfB3jMmm+KFI9aXUleNINAN 1lOjwvdGQ+MNPpVGB8zEkhXXrq UZQguY3hAMTuG6z7KaZhSoY5 QGaaK5IjktV4UZVxzIEpVUQrpH VIwI9nbycij3capocvKdDxJBEv RXc1MBx6HSJefIauRiJjFCR9 EyB8QHE3rBBafX3bdVhlobepfX 9wOyc+SlhlxXefFRN6NMo8R5Fh Owx2EFYchWyhFL4bgIKyCSva Hp6aiTbjnXzrDE8iXBTnvdytq8 13WcZew0sePEIwrIRhJRnbMXU9 F41yx5L9XJEeVLKgUWI8hIN9 aE0abNpbpuxxmFLzdBqsftFrdS yfPKrxYDrgF196IRCfkFzvErAx GKo5O9RqPjb0WVJqxEtlRO5g bRIfSVmlKk5etTeizExwOA0gZY Qmakvza689XlHzp6ymZFPsjACi OIskELC6D74ks6P8MUGyGIOd DUI4dWF7jM4veWqihhbxfHWgkJ tomyAvbHerKIfvWRxxB182ARZb dFpqLqFybKk9T8IdDdi4GABq bEpqPR1hyDOwUCtlZb0heJzmfB tfUU6rLGCtxbtkd897AbElz1uf LVRyaLBaZHwgHWV3F75ye9D6 CSQfMJLrEUB6tAS5zK6pjRwtzf ogbGVmdDsgdmVydGljYWwtYWxp H095AYTnzFzeLlWswCvogdHp DUxdFNq9Y6UgDlqszHC+PC90YW FyET63eFIaxVJjd2lxzSa8GfAy UCEfTFZ5bPsrEZhyw7GyVLVx G09evNCyk0D6WZDqdZyqoCXrTi NykNI8cH1xACxxvcosi4xbjkdd Jhsol0hjrl63tM47Z12fDSma DKXxDASwKNAbJLMvbTpmbo3nbP 9wIi8+RQXozFM0oRW4aP8qQYWq XrJ8ZAyeH890HfTodWZzOpnw e3igs2eqnRj3QyX2OXYfedWxhB uiKLP3j5NzPa26J72rYWboCDXh HJMgLQDgIUAppGiecp0nbV1m Ii8+TDBmoHC4kPG1mJ3pHwByYz M8TWodL572BgHceXCnEgehP45o B3OpjMG+KCWcSru8XBYeeCxi HL4gaAPvWUozVu8hUVK2UuXqJq QkRQwgD6QiBTSzrnqzojxrdMP0 XPMbPRQljB39Jz1jaRurXHYi tVKFhE0fmkkdw2vekuizFeFqEP ZiZWz3ZIh7TNZkrGlwKqAnCFV2 ZiR0YMG0cHUhaO0hoZirqdza rS4oO4KcBBJlyxgsYs30uF3qZv ElIiG0EZqrRtz+A4IAEOQbXYMV K0LRVXYCQLBEJTMQKS10OR38 cARgb9A3nLN2S4WfROMysdihbr dlcEJ1HQEhMOOgyM62jARpVWlt Uc9ho0E7h383ULNpHNXckY33 Mp7tcJcbNJTtcJSJxS0hutxlk0 gsnnrmZtNvHMGgPAw3UOr4XLEe qEgbIdGbJOS4BzO9WPE4vWJi yU5ulZmivujxuI8nKfv+MDQvMj kqQLb0AgkguMV+OSJgPST7sCfh XFjqFANxpQ4aBTNeT0d0IcKf RnW9AUtgX1UoYICohrxqMz96lI 6qRmCnRjF9PUevX7VwasT8JCXq qBZiCYhyXXO0E34mj3A3AKNg NJRmXGK4jYP0tV2djYjsjtpyvW PvsKfgcmFrjKjlBEvqYIyhL148 YTEntUghZzr7RPdtEKKrWL06 GW13xHWlc0D2wEC7F7OdIFKamm cdsofaiJA5YSCpWFEunQ64aMOl IKuoXs0xj8Q9l143FEInRGCu lI02Eb7leXluYOKbrXUYlP5tyf hup3jojiexPrCsLQKbLMc1SFj8 ZCWevXpgTtYtTVL2XiK1MDI3 zNYvzJ8xsUsvqhnbqE0yRnj+TU FMRTwvdGQ+IBAmDHE0iPckBKgx RYTlnX6dBDDsR5j9KxVgZnY3 OOntE2KvYTWacubgOv33vS5iId RyLxJ9BOagX0MzdgR8IPDipYWe VDlwQUO5X10qf1N3GYNpCICf LFP7sNZ4dQ9sjLuqedmxuGSsjK ortpPzkZvhZUvzZNbhR747EZZp cYfiYeBjOZKeDW4krTnzkKH+ PG67rp57S3BxAtzvJto1GOKqSR B0rWN9eP5dVMDrCEmni4R9oUP6 Q1AcguAamq0ya5gaPCWjYLqr B66lqSDqv3N9NMWpmVK9UPAdhH deSqMgmV03Net+LJLlhPcoj1Rj Gvcec9efq1xehNj5YbNrKJAa fkSxgNqvXNV1l8OmDl31A69xVD ntFJRfRQUoOTZaOLGojCmeue4t mC3wRn3+UXJudEN1yTL9tB6w IzHlTyT2ABizK961DeIkeBBaMl rdo3cbo7fooIk2WdHgNYLropSs dHssDWB5c7FmDv92K2EytGak c4RnGsk7xj09wEVfm0Y7pUO4L6 EtARXyyyulgZAutQzhSJ0iDEGf kvyqKRDxvV1oPKJaO6i9DnIj SvW7APstF1KcotZ1CSGxcOCzXR AnrNMDyZ7feqvti9njvjazZgOn ZUPzAAz3LHp7MRQbkBjtYaTp WGQ1NyR2WGA7wXPpfT8diDdgrd lkyK3aKzh+PEl8i0hjoHRoEP8m gVX3LS75ZS18gEPtn1H3zOX0 M4MtDTHcmhxqkuujwJU6QGLsXT PwuN62Ye3amVekVz7vVMZrRQI3 UALlmNEdJ5MmiB7eBcLsAGWv QUYmI1LtoPVuUMlmT907VSjfEe F4DYUddhZyZ2YxKRBwnZycNuS8 r4E0On7XKU79CM90HY74oKYe b0X2sYH3K6HpDAMsjkglaeomfU C0PLGiDMFdgG75Tk6ouCimBz5w YVSqYSF7JKKvdRBdC9NqsT6g VeTnRYFjDSRlV7GqoQRnOYhfE7 05ZLbeAxR2UZRmbvXbB0TqDRZp lSnqEyP4n8F3Ze2EBp87TI04 FU90lUHlm0H2uIL9X8GzULUxqw gagytbiTL1ALUfPNNduO02Ci9t tNsnHg0tIKGtNLY1MQZjrADk G8OlrO6xKnAbDARfJFAuX2McpH BvOZlxO122YKrbVzK6DKUtoaMf D0ClAUAkwIlxZuV3m5F6Hh0E DKthapp5A1FiHwazrKB+PC90YW VeVW99mVTbtHKie7vfiXk6EwGa FXClBPA5uDpuISkno8RvPIKs Y29 (more content not included)... Normal [facility] ED Clinical Summaryon 2022 ED Clinical Summary [facility] - Emergency Department [address] [place], [place] [address] ED Clinical Summary PERSON INFORMATION Name: TITO GONCALVES Age: 78 Years Sex: MALE : 1945 MRN: Acct#: Visit Reason: Eye Injury; Fall; FALL/LT EYE LAC Arrival: 07/05/2023 16:48:26 Discharge: 07/05/2023 18:40:00 LOS: 000 01:52 Check In: 07/05/2023 16:48:26 Checkout:07/05/2023 18:40:00 Address: [facility] [address] PCP: Augustine Metz PROVIDER INFORMATION Provider Role Assigned Unassigned Aysha GAVIN, Lisa ED Nurse 07/05/2023 17:08:51 VITALS INFORMATION [...] Patient/family/caregiver verbalizes understanding of instructions given Comment: [facility] ED Patient Education Noteon 07-05-2023 ED Patient Education Note Education Materials [facility] ED Patient Summaryon 023 ED Patient Summary [facility] - Emergency Department [address] [place] [address] PATIENT DISCHARGE INSTRUCTIONS Patient Information Name: TITO GONCALVES Age: 78 Years Date of : 1945 Reason For Visit: Eye Injury; Fall; FALL/LT EYE LAC Arrival Time: 07/05/2023 16:48:26 Primary Care Physician: Augustine Metz Attending Physician: Colin Song DO Comment: Visit Diagnosis: Diagnoses This Visit Eye Injury ([id number]) Fall ([id number]) The Pharmacy at [facility] is open Tuesday through Tuesday from 9A [...] alcohol and/or drug addiction problems; contact the [facility] 18/04 Crisis Hotline -Text 6LDAP fw [phone]. If you received any narcotics, sedation, or [...] and treatment you received today in the [facility] were for an urgent problem and are not intended as complete care. It is important for you to follow up with a doctor, nurse practitioner, or physician?s trust administrative assistant for ongoing care. If your symptoms [...] so we can reach you if necessary. [facility] Emergency Department has provided you with a complete list of medications post discharge. Please inform your chocolate finisher/provider of your visit and for further instruction [...] to relieve symptom (more content not included)... 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 Thanks! 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 His HR is controlled but his BP is averaging above goal of <130/90. Recommend we increase his carvedilol to 12.5mg BID. Follow-up in clinic in 3 months. Thanks! [facility] Office Visiton 02-28-2023 Follow-up visit [id number] Amina Goncalves 1945 [facility] Provider Department Center 02/28/2023 MADISON MOSES TIMO [facility] Family History Problem Relation Age of Onset Cancer Mother Heart attack Other Family Status - Relation Status Age at Mother Other Level of Service:62256 IN OFFICE/OUTPATIENT ESTABLISHED MOD MDM 30-39 MIN Reason for Visit and Comments: Atrial Fibrillation [80] Hypertension [108109] [facility] Telephoneon 02-28-2023 Telephone [id number] Amina Goncalves 1945 M Date Provider Department Center 02/28/2023 LEE FOFANA TIMO [facility] Family History Problem Relation Age of Onset Cancer Mother Heart attack Other Family Status - Relation Status Age at Mother Other Normal [facility] Phone Msgon 02-01-2023 Phone Msg - [...] mailed to his address on file. Normal [facility] CBC AUTO DIFFon 2023 BASO # 0.0 103/ul Normal 0.0-0.1 [facility] Comment on above: Performed By: #### C BC #### [facility] [address] [address] [address] Arjun Menjivar Basophils/100 WBC (Bld) 0.4 % Normal 0.2-2.0 [facility] Comment on above: Performed By: #### C BC #### [facility] [address] [address] [address] Arjun Menjivar EO # 0.1 103/ul Normal 0.0-0.7 [facility] Comment on above: Performed By: #### C BC #### [facility] [address] [address] [address] Arjun Menjivar Eosinophils/100 WBC (Bld) 1.5 % Normal 0.9-7.0 [facility] Comment on above: Performed By: #### C BC #### [facility] [address] [address] [address] Arjun Menjivar Erythrocyte distribution width (RBC) [Ratio] 13.7 % Normal 11.0-15.0 [facility] Comment on above: Performed By: #### C BC #### [facility] [address] [place] [address] Dr. Arjun Menjivar Hematocrit (Bld) [Volume fraction] 41.9 % Critically low 42.0-54.0 [facility] Comment on above: Performed By: #### C BC #### [facility] [address] [place] [address] Dr. Arjun Menjivar Hemoglobin (Bld) [Mass/Vol] 13.7 g/dL Critically low 14.0-18.0 [facility] Comment on above: Performed By: #### C BC #### [facility] [address] [place] [address] Dr. Arjun Menjivar IG # 0.02 10e3/ul Normal 0.00-0.03 [facility] Comment on above: Performed By: #### C BC #### [facility] [address] [place] [address] Dr. Arjun Menjivar IG % 0.3 % Normal 0.0-0.5 [facility] Comment on above: Performed By: #### C BC #### [facility] [address] [place] [address] Dr. Arjun Menjivar LYMPH # 1.4 103/ul Normal 1.2-3.8 [facility] Comment on above: Performed By: #### C BC #### [facility] [address] [place] [address] Dr. Arjun Menjivar Lymphocytes/100 WBC (Bld) 16.9 % Critically low 20.5-60.0 [facility] Comment on above: Performed By: #### C BC #### [facility] [address] [place] [address] Dr. Arjun Menjivar MANUAL DIFF REQ NO Normal [facility] Comment on above: Performed By: #### C BC #### [facility] [address] [place] [address] Dr. Arjun Menjivar MCH (RBC) [Entitic mass] 28.8 pg Normal 25.9-34.0 [facility] Comment on above: Performed By: #### C BC #### [facility] [address] [address] [address] Arjun Menjivar MCHC (RBC) [Mass/Vol] 32.7 g/dL Normal 29.9-35.2 [facility] Comment on above: Performed By: #### C BC #### [facility] [address] [address] [address] Arjun Menjivar MCV (RBC) [Entitic vol] 88.2 fL Normal 80.0-94.0 [facility] Comment on above: Performed By: #### C BC #### [facility] [address] [place] [address] Dr. Arjun Menjivar MONO # 0.5 103/ul Normal 0.3-0.8 [facility] Comment on above: Performed By: #### C BC #### [facility] [address] [place] [address] Dr. Arjun Menjivar Monocytes/100 WBC (Bld) 5.9 % Normal 1.7-12.0 [facility] Comment on above: Performed By: #### C BC #### [facility] [address] [place] [address] Dr. Arjun Menjivar NEUT # 6.0 103/ul Normal 1.4-6.5 [facility] Comment on above: Performed By: #### C BC #### [facility] [address] [place] [address] Dr. Arjun Menjivar Neutrophils/100 WBC (Bld) 75.0 % Normal 43.0-75.0 [facility] Comment on above: Performed By: #### C BC #### [facility] [address] [place] [address] Dr. Arjun Menjivar Platelet mean volume (Bld) [Entitic vol] 11.4 fL Normal 9.5-13.5 [facility] Comment on above: Performed By: #### C BC #### [facility] [address] [place] [address] Dr. Arjun Menjivar PLT 169 103/ul Normal 150-450 [facility] Comment on above: Performed By: #### C BC #### [facility] [address] [address] [address] Arjun Menjivar RBC 4.75 106/ul Normal 4.70-6.10 [facility] Comment on above: Performed By: #### C BC #### [facility] [address] [address] [address] Arjun Menjivar WBC 8.0 103/ul Normal 4.0-11.0 [facility] Comment on above: Performed By: #### C BC #### [facility] [address] [address] [address] CSPINE WO CONon [...] SALINA ESPINOZA Date: 2023 16:25 Normal [facility] CT HEAD WO CONon 2023 CT [...] TOSHIA ANDRES Date: 2023 21:30 Normal [facility] PROF 14(COMP METB)on 023 Albumin [Mass/Vol] 3.7 g/dL Normal 3.4-5.0 [facility] Comment on above: Performed By: #### C MP ####[facility] [address] [address]Dr. Arjun Menjivar Albumin/Globulin [Mass ratio] 1.1 {ratio} Normal [facility] Comment on above: Performed By: #### C MP ####[facility] [address] [place] [address]Dr. Arjun Menjivar ALP [Catalytic activity/Vol] 87 U/L Normal 46-116 [facility] Comment on above: Performed By: #### C MP ####[facility] [address] [place] [address]Dr. Arjun Menjivar ALT [Catalytic activity/Vol] 26 U/L Normal 16-63 [facility] Comment on above: Performed By: #### C MP ####[facility] Ek[address] [place], [place] [address]Dr. Arjun Otto Anion gap [Moles/Vol] 9.2 mmol/L Normal [facility] Comment on above: Performed By: #### C MP ####[facility] [address]zq[address] [place], [place] [address]Dr. Arjun Otto AST [Catalytic activity/Vol] 20 U/L Normal 15-37 [facility] Comment on above: Performed By: #### C MP ####[facility] Gx[address]of[address] [place], [place] [address]Dr. Arjun Otto Bilirubin [Mass/Vol] 0.4 mg/dL Normal 0.2-1.0 [facility] Comment on above: Performed By: #### C MP ####[facility] Wui[address] [place], [place] [address]Dr. Arjun Otto Calcium [Mass/Vol] 9.1 mg/dL Normal 8.5-10.1 [facility] Comment on above: Performed By: #### C MP ####[facility] K[address] [place], [place] [address]Dr. Arjun Otto Chloride [Moles/Vol] 105 mmol/L Normal 98-107 [facility] Comment on above: Performed By: #### C MP ####[facility] [address] [place] [address]Dr. Arjun Menjivar CO2 [Moles/Vol] 28.9 mmol/L Normal 21.0-32.0 [facility] Comment on above: Performed By: #### C MP ####[facility] [address] [place] [address]Dr. Arjun Menjivar Creatinine [Mass/Vol] 1.23 mg/dL Normal 0.70-1.30 [facility] Comment on above: Performed By: #### C MP ####[facility] [address] [place] [address]Dr. Arjun Menjivar EGFR-AF CYPRIOT >60 Normal >=60 [facility] Comment on above: Performed By: #### C MP ####[facility] [address] [place] [address]Dr. Arjun Menjivar EGFR-NON AF CYPRIOT 57 mL/min/1.73m2 Critically low >=60 [facility] Comment on above: Performed By: #### C MP ####[facility] [address]gs[address] [place] [address]Dr. Arjun Otto Globulin (S) [Mass/Vol] 3.4 g/dL Normal [facility] Comment on above: Performed By: #### C MP ####[facility] [address] [place] [address]Dr. Arjun Menjivar Glucose [Mass/Vol] 126 mg/dL Critically high 74-106 [facility] Comment on above: Performed By: #### C MP ####[facility] [address] [place] [address]Dr. Arjun Menjivar Potassium [Moles/Vol] 4.1 mmol/L Normal 3.5-5.1 [facility] Comment on above: Performed By: #### C MP ####[facility] [address] [place] [address]Dr. Arjun Menjivar Protein [Mass/Vol] 7.1 g/dL Normal 6.4-8.2 [facility] Comment on above: Performed By: #### C MP ####[facility] [address] [place] [address]Dr. Arjun Menjivar Sodium [Moles/Vol] 139 mmol/L Normal 136-145 [facility] Comment on above: Performed By: #### C MP ####[facility] [address] [place], [place] [address]Dr. Arjun Menjivar Urea nitrogen [Mass/Vol] 12.0 mg/dL Normal 7.0-18.0 The [facility] Comment on above: Performed By: #### C MP ####[facility] [address] [place], [place] [address]Dr. Arjun Menjivar Urea nitrogen/Creatinine [Mass ratio] 9.8 mg/mg Normal The [facility] Comment on above: Performed By: #### C MP ####[facility] Ezbfr[address] [place], [place] [address]Dr. Arjun Menjivar PROTIMEon 2023 INR Coag (PPP) [Relative time] 2.90 {INR} Normal The [facility] Comment on above: Performed By: #### P TT, PT ####[facility] [address] [place], [place] [address]Dr. Arjun Menjivar INR GUIDELINES SEE BELOW Normal [facility] Comment on above: Result Comment: PIOTR RED INR: 2.0 - 3.0 CONDITIONS NOT LISTED BELOW 2.5 - 3.5 FOR PROSTHETIC HEART VALVE REPLACEMENT 2.5 - 3.5 RECURRENT THROMBOSIS Performed By: #### P TT, PT ####[facility] [address] [place], [place] [address]Dr. Arjun Menjivar PT Coag (PPP) [Time] 28.9 s Critically high 9.0-11.6 The [facility] Comment on above: Performed By: #### P TT, PT ####[facility] J[address] [place], [place] [address]Dr. Arjun Menjivar PTTon 2023 aPTT Coag (Bld) [Time] 37.7 s Critically high 22.3-36.2 The [facility] Comment on above: Performed By: #### P TT, PT ####[facility] [address] [place], [place] [address]Dr. Arjun Menjivar XR PELVIS 1_2 VIEWSon 2022 [...] by: LINDA WANG Date: 2023 16:14 Normal [facility] XR ERCP 1 HOUR FLUOROon 10-27 XR ERCP 1 HOUR FLUORO Fluoroscopic guidance for ERCP 11/09/2022 6:30 AM BRAKE ADJUSTER History: DR ALEXANDRIA;OTHER REASON Tech notes: WHAT SYMPTOMS ARE YOU [...] by: Radha Haji MD 11/10/2022 8:01 AM BRAKE ADJUSTER Technologist: EDITA Dictated By: RADHA HAJI MD Signed By: RADHA HAJI MD Signed Out: 11/10/22 09:01:42 Normal [facility] Anesthesiaon 11-09-2022 Anesthesia Patient: YE GONCALVES Age: [...] Postoperative hydration status: euvolemic. Notes: Normothermia. Normal [facility] Anesthesia Patient: YE GONCALVES Age: 77 years [...] release 325 mg = 1 caps, ORAL, [id number] trazodone = Desyrel 50 mg, ORAL, BID [...] available Procedure history: Endoscopic Retrograde Cholangiopancreatography (ERCP). (98029) on 11/09/2022 at 77 Years. Endoscopic Retrograde Cholangiopancreatography (ERCP). (23198) on 08/14/2021 at 76 Years. Esophagogastroduodenoscopy , flexible, transoral; with endoscopic ultrasound examination limited to the esophagus, stomach or duodenum, and adjacent structures (33634) on 07/10/2021 at 76 Years. Social History [...] palate, fauces, uvula visible). Assessment and Plan [place] [employer] Anesthesiologists (ASA) physical status classification: [...] recognition software. Verbal misinterpretations may occur. Normal [facility] ENDO Initial Data VS HW Prep -Texton 11-09-2022 ENDO Initial Data VS HW Prep-Text Endoscopy Intial Data VS HW Prep Entered On: 11/09/2022 7:10 EST Performed On: 11/09/2022 7:09 EST by Kaylyn Bettencourt RN VS HW Prep Systolic Blood Pressure : [...] Last Fluid Intake : 11/09/2022 04:20 EST Kaylyn Bettencourt RN - 11/09/2022 7:09 EST Anesthesia/Transfusions Anesthesia/Transfusions : Prior anesthesia Accept Blood Products if Necessary : Yes Kaylyn Bettencourt RN - 11/09/2022 7:09 EST Normal [facility] ENDO Outpatient Admission Da ta-Texton 11-09-2022 ENDO Outpatient Admission Data-Text Endoscopy OP Admission Data Entered On: 11/09/2022 7:12 EST Performed On: 11/09/2022 7:09 EST by Kaylyn Bettencourt RN Assessment Mobility : Ambulatory Mental Status : Alert Oriented : Person, Place, Time Pacemaker/AICD : na Heart : Regular Lungs : Clear Abdomen : Soft Bowel Sounds All Quadrants : Present Prosthesis/Metal : BL knees Glasses : Yes Dentures : Yes Person Driving Pt Home : daughter Amna Surgeon Speak with Classroom Coordinator : Yes Voided : No Pain Level and Site : 0 Kaylyn Bettencourt RN - 11/09/2022 7:09 EST Present on Admission Medical Devices : None Medical Devices for Med Administration : None Kaylyn Bettencourt RN - 11/09/2022 7:09 EST [place] Coma Eye Opening Response [place] : Spontaneously Best Verbal Response Vikas : Oriented Best Motor Response [place] : Obeys simple commands Vikas Coma Score : 15 Kaylyn Bettencourt RN 11/09/2022 7:09 EST Advance Directive *Advance Directive : Yes Sg GAVIN [facility] 11/09/2022 7:09 EST Outpatient Fall Risk GEN_Fall Risk Indicators_49304 : Age 65 or greater, Medications altering equilibrium or cognitive judgement Fall Risk Band On : Yes Sg GAVIN [facility] 11/09/2022 7:09 EST Screening-Safety Domestic Concerns : None Feeling Down, Depressed, Hopeless : Not at all Little Interest - Pleasure in Activities : Not at all Initial Depression Screen Score : 0 Depression Screening Score 0 : No gS GAVIN [facility] 11/09/2022 7:09 EST Education Barriers to Learning : None evident TeachBack Methodology : TeachBack, Demonstration, Explanation, Printed Material Sg GAVIN [facility] 11/09/2022 7:09 EST ENDO Education Activity Expectations : Verbalizes understanding Anesthesia/Sedation : Verbalizes understanding Endo Post Procedure Care : Verbalizes understanding Follow-Up Care/Appointment : Verbalizes understanding Safety : Verbalizes understanding Sg GAVIN [facility] 11/09/2022 7:09 EST Normal [facility] Inpatient Patient Summaryon 11-09-2022 Inpatient Patient Summary [facility] Discharge Instructions [address] [place] [address] \.br\(Patient Copy)\.br\ \.br\ \.br\Name: TITO GONCALVES : 1945 \.br\Diagnosis: \.br\ \.br\Allergies: sulfa drugs; penicillins; iodine topical\.br\ \.br\Registration Date: 11/09/22\.br\.br\.br\ \.br\ Current Date Time: 11/09/2022 08:44:54 \.br\ \.br\Address: [address] [facility] [address] \.br\Phone: [phone] \.br\ \.br\Primary Care Provider: \.br\Name: AUGUSTINE METZ\.br\Phone: [phone] \.br\ \.br\Thank you for choosing [facility] for your care. You are very important to us. Our goal is to demonstrate our high quality medical care and provide you with a very good patient experience.\.br\ You may receive a survey about our service. Please take the time to complete the survey and return it so we can continue to enhance our service.\.br\ Thank you again for allowing [facility] to care for your medical needs. If you have any questions about your care or follow up information please contact your doctor.\.br\.br\Follow-up Instructions\.br\.br\.br \With: Address: When: \.br\PUJA HOLBROOK, Gastroenterology [address], [address] [place] [address]\.br\ Business (1) Within Call for Appointment \.br\.br\.br\.br\.br\P [...] tarry sto (more content not included)... Normal [facility] OR Nursing Record - Endoon 0 11-09-2022 OR Nursing Record - Endo OR Nursing Record - Endo Summary Primary Physician: PUJA HOLBROOK MD Finalized Date/Time: 11/09/22 08:27:34 Pt. Name: FILEMONALYXTITO/Sex: 1945 Male Med Rec #: [id number] Physician: Financial #: [id number] Pt. Type: A Room/Bed: / Admit/Disch: 11/09/22 06:11:45 - Institution: Case Times - Endo Entry 1 Patient In Room Time 11/09/22 07:43:00 Out Room Time 11/09/22 08:24:00 Anesthesia Facility Times Induction Time 11/09/22 07:48:00 Stop Time 11/09/22 08:15:00 [place] Protocol Yes Completed Surgery Start Time 11/09/22 [...] 1 Entry 2 Entry 3 Case Attendee YUSEF UMANZOR, PUJA Haider RN, Martha Solomon RN, Minnie Role Performed Surgeon Primary Country Sales Manager Primary Scrub Primary Time In 11/09/22 07:43:00 11/09/22 07:43:00 11/09/22 07:43:00 Time Out 11/09/22 08:24:00 11/09/22 08:24:00 11/09/22 08:24:00 Procedure ERCP(None) ERCP(None) ERCP(None) Last Modified By: Vitaly GAVIN, Martha Haider RN, Martha Barrera RN 11/09/22 08:21:41 11/09/22 08:21:41 11/09/22 08:21:41 Entry 4 Entry 5 Entry 6 Case Attendee Dena GAVIN, Josselin SPRINGER DO, LESLI PALMA, JYOTI Role Performed Country Sales Manager Secondary Anesthesiologist Primary Anesthesia Asst/PIPELINE ENGINEER Time In 11/09/22 07:43:00 11/09/22 07:43:00 11/09/22 07:43:00 Time Out 11/09/22 08:24:00 11/09/22 08:24:00 11/09/22 08:24:00 Procedure ERCP(None) ERCP(None) ERCP(None) Last Modified By: Vitaly GAVIN, Martha Haider RN, Martha Barrera RN 11/09/22 08:21:41 11/09/22 08:21:41 11/09/22 08:21:41 Delays [...] ABDOMEN Protective Devices No Radiological Tech Golak RT, Simran Applied to Patient Last Modified By: Martha Haider RN 11/09/22 07:45:20 Blood Products - Endo NOT APPLICABLE Entry 1 Last Modified By: Implants/Tissue Products - Endo NOT APPLICABLE Entry 1 Last Modified By: Endo Specimens/Cultures NOT APPLICABLE Entry 1 Last Modified By: Case Comments Finalized By: Martha Haider RN Document Signatures Signed By: Martha Haider RN 11/09/22 08:23 Martha Haider RN 11/09/22 08:27 Normal [facility] Operative Reporton Operative Report Patient: YE GONCALVES [...] Notes: Follow-up in clinic as scheduled. Normal [facility] Comment on above: Order Comment: [place] Attachment [id number] can be viewed in source system Missing Attachment [id number] can be viewed in source system Missing Attachment [id number] can be viewed in source system Missing Attachment [id number] can be viewed in source system Missing Attachment [id number] can be viewed in source system Missing Attachment [id number] can be viewed in source system Result Comment: PACU Phase I - Endoon 2022 PACU Phase I - Endo PACU Phase I - Endo Summary Primary Physician: PUJA HOLBROOK MD Finalized Date/Time: 11/09/22 08:55:35 Pt. Name: TITO GONCALVES/Sex: 1945 Male Med Rec #: [id number] Physician: Financial #: [id number] Pt. Type: A Room/Bed: / Admit/Disch: 11/09/22 06:11:45 - Institution: PACU I Case Times - Endo Entry 1 In PACU I 11/09/22 08:25:00 Ready for Transfer 11/09/22 09:19:00 Last Modified By: Sariah Schreiber RN 11/09/22 08:55:34 Finalized By: Sariah Schreiber RN Document Signatures Signed By: Sariah Schreiber RN 11/09/22 08:55 Normal [facility] POC Glucoseon 11-09-2022 Glucose [Mass/Vol] 131 mg/dL High 72-100 [facility] Comment on above: Performed By: #### 1 [id number] ####[facility] [address] [place] [address] Medical Director: Diogo Carcamo MD Preop - Endoon 11-09-2022 Preop - Endo Preop - Endo Summary Primary Physician: PUJA HOLBROOK MD Finalized Date/Time: 11/09/22 07:13:53 Pt. Name: TITO GONCALVES/Sex: 1945 Male Med Rec #: [id number] Physician: Financial #: [id number] Pt. Type: A Room/Bed: / Admit/Disch: 11/09/22 06:11:45 - Institution: Preop - Case Times - Endo Entry 1 Patient Arrival Time 11/09/22 06:31:00 Patient Ready for 11/09/22 07:11:00 Surgery Report Given to n/a Last Modified By: Kaylyn Bettencourt RN 11/09/22 07:13:51 Finalized By: Kaylyn Bettencourt RN Document Signatures Signed By: Kaylyn Bettencourt RN 11/09/22 07:13 Normal [facility] Provider Letter - Ambulatory on 11-09-2022 Provider Letter - Ambulatory AUGUSTINE METZ, [address] [place] [address] RE: TITO GONCALVES 11/09/2022 Dear AUGUSTINE METZ [...] - (11/09/2022) GI ERCP with Anesthesia Normal [facility] [place] Protocol/Pre-Proc TimeOut-Texton 11-09-2022 [place] Protocol/Pre-Proc TimeOut-Text [place] Protocol Entered On: 11/09/2022 7:13 EST Performed [...] Onset Date: Unspecified ; Created By: Blanca Baziz; Reaction Status: Active ; Category: Drug ; [...] Haider RN - 11/09/2022 7:48 EST Normal [facility] Phone Msgon 11-08-2022 Phone Msg - From: Lori Cintron MA Sent: 11/08/2022 13:03:57 EST Caller Name: TITO GONCALVESChintan Caller Number: H Pt called to ask if he should take heart pills prior to procedure with Dr. Angelo 11/09, ERCP. In question: propafenone, carvedilol and benazepril and if he can take them around one hour prior to arrival which would be 5:30am. Pt was asked to speak with his income auditor'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 Normal [facility] MRI ABDOMEN WO CONon 023 MRI ABDOMEN [...] by: SANTOS DC Date: 2022-11-01 09:53 Normal [facility] Phone Msgon 10-28-2022 Phone Msg - From: Fela Alexandre To: Maia GAVIN, Caren; Blanca Bazzi; Sent: 10/28/2022 09:12:23 EST Subject: Cardiac Clearance Caller Name: TITO GONCALVES; Caller Number: H Patient asking when to stop Coumadin. Colonoscopy scheduled 11/09/21 From: Blanca Bazzi To: Fela Alexandre; Sent: 10/28/2022 09:15:22 EST Subject: RE: Cardiac Clearance Caller Name: TITO GONCALVES; Caller Number: H Did he say who his Quarantine Inspector was? From: Caren Carvalho RN To: Blanca Bazzi; Fela Alexandre; Sent: 10/28/2022 09:50:53 EST Subject: RE: Cardiac Clearance Caller Name: TITO GONCALVES; Caller Number: H He sees Dr. Metz sent LM for pt-Per Dr. Metz, pt can be off his Coumadin 5 days prior to his procedure. Normal [facility] AMB GI Physician Progress No irma 10-26-2022 AMB GI Physician Progress Note Chief Complaint Abdominal pain History of Present Illness 77-year-old male with recurrent history of choledocholithiasis last ERCP was done a year ago in [place] Patient had admission in hospital in [place] with fever and chills Patient has had [...] 14:56:00) Body Mass Index Measured: 18.81 kg/m2 (10/26/22:56:) Weight Measured - lbs2: 139 lb (10/26/22:56:) Height/Length Measured - in2: 72 in (10/26/22:56:) Body Mass Index Measured English2: 18.85 kg/m2 (10/26/22:56:) BSA: 1.79 m2 (10/26/22:56:) Ht/Wt Measurement Refused by Patient?2: No (10/26/22:56:) Depression Screening Scores Initial Depression Screen Score: 0 (10/26/22:56:) Fall Risk Assessment Is the patient ambulatory (mobile): Yes (10/26/22:56:) Have you had a fall within the past: No (10/26/22:56:) Have you had 2 or more falls in the past: No (10/26/22:56:) Constitutional: Well nourished, well developed. Appears to [...] Est Pt Mod MDM / 30-39 min 47623, 10/26/2022 16:13:00 EST, Abdominal pain / Pancreatic cyst MR CP, 10/26/2022, Routine, PAIN, Abdominal pain / Pancreatic cyst 2. Pancreatic cyst K86.2 Pancreatic cyst stable very low CEA levels suggestive of simple serous cyst versus inflammatory cyst. Asymptomatic Ordered: AMB Follow - Up Appt Amb, 10/26/2022 16:13:00 EST, 4 weeks AMB Office/Outpt Est Pt Mod MDM / 30-39 min 54228, 10/26/2022 16:13:00 EST, Abdominal pain / Pancreatic cyst MR [facility], 10/26/2022, Routine, PAIN, Abdominal pain / Pancreatic [...] extended release, 325 mg= 1 caps, ORAL, [id number] trazodone = Desyrel, 50 mg, ORAL, BID [...] Care Team Primary Care Physician AUGUSTINE METZ [phone] Attending Physician YUSEF UMANZOR, PUJA [phone] . Health Maintenance Pending (in the next year) There are no current recommendations pending Satisfied (in the past 1 year) There are no satisfied recommendations within the defined date range Normal [facility] Comprehensive Intake - Texto n 10-26-2022 Comprehensive [...] in, 183 cm) Body Mass Index Measured Irish : 18.85 kg/m2 BSA Irish : 1.79 m2 Ht/Wt Measurement Refused by Patient? : No Lori Cintron MA - 10/26/2022 15:44 EST Vitals Systolic Blood [...] ABD pain 0-9/10 Require BP : Yes Lori Cintron MA - 10/26/2022 15:44 EST Pain Present : [...] risk situation (congregated living, hemodialysis, infusion clinic, mcfp, assisted living, correction, homeless correction, etc.)? : No Lori Cintron MA - [...] Abnormal LFTs (liver function tests) (SNOMED CT :963749630 ) Name of Problem: Abnormal LFTs (liver function tests) ; Recorder: Blanca Bazzi; Confirmation: Confirmed ; Classification: Medical ; Code: [id number] ; Contributor System: OpternativeChart ; Last Updated: 07/01/2021 12:43 EDT ; Life Cycle Date: 07/01/2021 ; Life Cycle Status: Active ; Vocabulary: SNOMED CT Arthritis (SNOMED CT :0538828 ) Name of Problem: Arthritis ; Recorder: Blanca Bazzi; Confirmation: Confirmed ; Classification: Medical ; Code: 9934991 ; Contributor System: PowerChart ; Last Updated: 07/01/2021 12:43 EDT ; Life Cycle Date: 07/01/2021 ; Life Cycle Status: Active ; Vocabulary: SNOMED CT Choledocholithiasis (SNOMED CT :007335989 ) Name of Problem: Choledocholithiasis ; Recorder: PUJA HOLBROOK MD; Confirmation: Confirmed ; Classification: Medical ; Code: 706603620 ; Contributor System: PowerChart ; Last Updated: 07/01/2021 13:27 EDT ; Life Cycle Date: 07/01/2021 ; Life Cycle Status: Active ; Responsible Provider: PUJA HOLBROOK MD; Vocabulary: SNOMED CT Diabetes (SNOMED CT :395220340 ) Name of Problem: Diabetes ; Recorder: Blanca Bazzi; Confirmation: Confirmed ; Classification: Medical ; Code: 084164065 ; Contributor System: OpternativeChart ; Last Updated: 07/01/2021 12:43 EDT ; Life Cycle Date: 07/01/2021 ; Life Cycle Status: Active ; Vocabulary: SNOMED CT Gallbladder disease (SNOMED CT :897834430 ) Name of Problem: Gallbladder disease ; Recorder: Blanca Bazzi; Confirmation: Confirmed ; Classification: Medical ; Code: 572169033 ; Contributor System: PowerChart ; Last Updated: 07/01/2021 12:44 EDT ; Life Cycle Date: 07/01/2021 ; Life Cycle Status: Active ; Vocabulary: SNOMED CT GERD (gastroesophageal reflux disease) (SNOMED CT :965443751 ) Name of Problem: GERD (gastroesophageal reflux disease) ; Recorder: Blanca Bazzi; Confirmation: Confirmed ; Classification: Medical ; Code: [id number] ; Contributor System: PowerChart ; Last Updated: 07/01/2021 12:44 EDT ; Life Cycle Date: 07/01/2021 ; Life Cycle Status: Active ; Vocabulary: SNOMED CT Hypertension (SNOMED CT :8807101144 ) Name of Problem: Hypertension ; Recorder: Blanca Bazzi; Confirmation: Confirmed ; Classification: Medical ; Code: 0387980530 ; Contributor System: OpternativeChart ; Last Updated: 07/01/2021 12:44 EDT ; Life Cycle Date: 07/01/2021 ; Life Cycle Status: Active ; Vocabulary: SNOMED CT Irregular heart rhythm (SNOMED CT :172473531 ) Name of Problem: Irregular heart rhythm ; Recorder: Blanca Bazzi; Confirmation: Confirmed ; Classification: Medical (more content not included)... [facility] Provider Letter - Ambulatory on 10-26-2022 Provider Letter - Ambulatory AUGUSTINE METZ, [facility] [place] [address] RE: TITO GONCALVES 10/26/2022 Dear AUGUSTINE METZ [...] - (10/26/2022) *.AMB Office Visit Note Normal [facility] Phone Msgon 10-22-2022 Phone Msg - From: Lise Lawrence MA To: Caren Carvalho RN; PUJA HOLBROOK MD; Sent: 10/22/2022 09:40:42 EST Subject: symptoms/appointment Caller Name: TITO GONCALVES; Caller Number: H Tito Berg daughter, Amna Sousa [phone] called. She is asking if he can [...] other dilemma is he is leaving for [place] on 11/13 for 6 weeks. From: Caren Carvalho RN To: Lise Lawrence MA; Sent: 10/22/2022 09:47:07 EST Subject: RE: symptoms/appointment [...] him until December. He has moved to [facility] and Tito would be considered a new patient. His daughter did not feel he was acutely ill and that he can wait for the appointment next Tuesday. Normal [facility] GLYCOHEMOGLOBIN A1Con 2022 ADA RECOMMENDATION SEE BELOW Normal [facility] Comment on above: Result Comment: ADA RECOMMENDED LIMIT 4.0 - 6.0 ADA THERAPEUTIC TARGET < 7.0 ACTION SUGGESTED > 7.0 Performed By: #### A 1C ####[facility] [address] [place] [address]Dr. Arjun Menjivar Glucose [Mass/Vol] 163 mg/dL Normal [facility] Comment on above: Performed By: #### A 1C ####[facility] [address] [place], [place] [address]YcMago Menjivar HbA1c (Bld) [Mass fraction] 7.3 % Critically high 4.5-6.2 [facility] Comment on above: Performed By: #### A 1C ####[facility] [address] [place], [place] [address]CoMago Menjivar Dermatopathologyon 2 Dermatopathology Name: TITO GONCALVES Pathologist: KRISTEN OCONNOR MD Date of Procedure: 09/07/2022 Date Received: 09/07/2022 Date Reported 09/08/2022 Submitting Physician: MACARIO BUI MD, Location: [facility] Copy To/Referring/Attending: MD SABRA SIMS FINAL DIAGNOSIS 3 SLIDES, [facility] #[id number] (BX: 08/03/2022) A. 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 B. SKIN, RIGHT MORAVIAN, SHAVE BIOPSY: MELANOMA IN SITU, PRESENT ON [...] M.D. CANCER SUMMARY REPORT A. [facility] #[id number] (BX: 08/03/2022): SPECIMEN Procedure: Biopsy, shave Specimen Laterality: Right TUMOR Tumor Site: Skin of other and unspecified parts of face: Right shinto Histologic Type: Melanoma in situ, lentigo maligna [...] ADDITIONAL FINDINGS Additional Findings: None ADDITIONAL TESTING Plate Slitter And Inspector Blocks: Normal Block: None Tumor Block: A1 Electronically Signed Out By KRISTEN OCONNOR MD/LEANDRO Diagnostic interpretation performed at [facility] [address] [id number], [facility] [address] Microscopic Description: A. Microscopic examination reveals nests [...] OTHER Specimens Submitted As: A: 3 [facility] #[id number] (BX: 08/03/2022) Gross Description: Received for consultation from [facility] are three slides labeled [id number] (BX: 08/03/2022) along with the corresponding pathology report. Slide/Block Description 3 SLIDES, [id number]. Keep Slides: N Slides Returned: N Personal Consult: N Normal [facility] Comment on above: Performed By: #### D #### Dermatopathology GLYCOHEMOGLOBIN A1Con 2021 ADA RECOMMENDATION SEE BELOW Normal [facility] Comment on above: Result Comment: ADA RECOMMENDED LIMIT 4.0 - 6.0 ADA THERAPEUTIC TARGET < 7.0 ACTION SUGGESTED > 7.0 Performed By: #### A 1C ####[facility] [address] [place], [place] [address]DpMago Menjivar Glucose [Mass/Vol] 151 mg/dL Normal [facility] Comment on above: Performed By: #### A 1C ####[facility] [address] [place], [place] [address]AuMago Menjivar HbA1c (Bld) [Mass fraction] 6.9 % Critically high 4.5-6.2 [facility] Comment on above: Performed By: #### A 1C ####[facility] [address] [place], [place] [address]AjMago Menjivar XR ESOPHAGUSon 06-28-2022 XR ESOPHAGUS EXAMINATION: [...] by: CARMEN PABLO Date: 2022-06-28 14:07 Normal [facility] XR MODIFIED BARIUM SWALLOWon 06-15-2022 XR MODIFIED [...] by: SANTOS DC Date: 2022-06-15 11:11 Normal [facility] Ambulatory Visit Summaryon 0 05-03-2022 Ambulatory Visit Summary TITO GONCALVES :1945 Visit Date:05/03/2022 Ambulatory Visit Instructions Your Diagnosis Kidney stone BPH with urinary obstruction Glucosuria Proteinuria Other obstructive and reflux uropathy Your Care Team Attending Physician - GAGE UMANZOR, Mc Blackman Primary Care Physician - AUGUSTINE METZ DO [...] Following Appointments Follow Up with GAGE UMANZOR, Mc Blackman, VINICIUS When: Comments: PRN Where: [facility] [address], [place] [address]- [phone] Medications What How Much When Instructions Unchanged [...] or concerns Unchanged omeprazole (omeprazole 20 mg Cap-DR) 1 Capsules By Mouth Every day Contact [...] the si (more content not included)... Normal [facility] Patient Educationon 05-03-20 Patient Education Urology Benign [...] Follow these instructions at home: ? Take sdas-viv-rxsvkbl and prescription medicines only as told by [...] You d (more content not included)... Normal [facility] Urology Office/Clinic Noteon 05-03-2022 Urology Office/Clinic Note Chief Complaint 1 year with KUB HPI Staff Tito is here today for a 1 year follow up with a KUB. KUB done on 04/26/22 at [facility] impression showed no appreciable urinary tract [...] URL [facility] [address], [place] [phone] Additional Instructions: PRN Patient Education Benign Prostatic Hyperplasia IJerri, personally scribed for Dr. Almonte on 05/03/2022 09:24:40. . Documentation recorded by the irisibJerri wisdom, accurately reflects the services(s) I performed and [...] in lifetim (more content not included)... Normal [facility] Comment on above: Result Comment: Elec tronically Signed By: Mc ALMONTE MD\.br\Date and Time Signed: 05/03/22 09:26 EDT\.br\Electronically Co-Signed By: Jerri Lyles\.br\Date and Time Co-Signed: 05/03/22 09:24 EDT RAD - MISCon 04-28-2022 RAD - [facility] [id number] Normal [facility] XR KUB 1 VIEWon 04-27-2022 XR KUB [...] by: SANTOS DC Date: 2022-04-27 06:18 Normal [facility] GLYCOHEMOGLOBIN A1Con 2021 ADA RECOMMENDATION SEE BELOW Normal [facility] Comment on above: Result Comment: ADA RECOMMENDED LIMIT 4.0 - 6.0 ADA THERAPEUTIC TARGET < 7.0 ACTION SUGGESTED > 7.0 Performed By: #### A 1C #### [facility] [address] [address] [address] Arjun Menjivar Glucose [Mass/Vol] 126 mg/dL Normal [facility] Comment on above: Performed By: #### A 1C #### [facility] [address] [place] [address] Dr. Arjun Menjivar HbA1c (Bld) [Mass fraction] 6.0 % Normal 4.5-6.2 [facility] Comment on above: Performed By: #### A 1C #### [facility] [address] [place] [address] Dr. Arjun Menjivar IRON AND TIBCon 04-07-2022 % SATURATION 25.4 % Normal [facility] Comment on above: Performed By: #### F ETIBC, B12FOL #### [facility] [address] [place] [address] Dr. Arjun Menjivar Iron [Mass/Vol] 62.0 ug/dL Critically low 65.0-175.0 [facility] Comment on above: Performed By: #### F ETIBC, B12FOL #### [facility] [address] [place] [address] Dr. Arjun Menjivar TIBC DIRECT 244.0 ug/dL Critically low 250.0-450.0 [facility] Comment on above: Performed By: #### F ETIBC, B12FOL #### [facility] [address] [place] [address] Dr. Arjun Menjivar VIT B12 AND FOLATEon 022 Cobalamin (Vitamin B12) [Mass/Vol] 597.0 pg/mL Normal 193.0-986.0 [facility] Comment on above: Performed By: #### F ETIBC, B12FOL #### [facility] [address] [address] [address] Arjun Menjivar FOLATE 21.50 ng/mL Normal 8.60-58.90 [facility] Comment on above: Performed By: #### F ETIBC, B12FOL #### [facility] [address] [address] [address] Arjun Menjivar CBCon 03-16-2022 ABSOLUTE BAS 0.0 10*3/uL Normal 0.0-0.2 [facility] Comment on above: Result Comment: Test ing performed at [place] [address] Performed By: #### R ENF, ACBC, PT #### [place] [address] ABSOLUTE EOS 0.00 10*3/uL Normal 0.0-0.7 [facility] Comment on above: Performed By: #### R ENF, ACBC, PT #### [place] [address] ABSOLUTE NEUTROPHIL COUNT 8.5 10*3/uL High 1.4-6.5 [facility] Comment on above: Performed By: #### R ENF, ACBC, PT #### [place] [address] Basophils/100 WBC (Bld) 0.1 % Normal 0.0-2.0 [facility] Comment on above: Performed By: #### R ENF, ACBC, PT #### [place] [address] DTYPE AUTO DIFF Normal [facility] Comment on above: Performed By: #### R ENF, ACBC, PT #### [place] [address] Eosinophils/100 WBC (Bld) 0.0 % Normal 0.0-11.0 [facility] Comment on above: Performed By: #### R ENF, ACBC, PT #### [place] [address] Lymphocytes (Bld) [#/Vol] 0.60 10*3/uL Low 1.2-3.4 [facility] Comment on above: Performed By: #### R HUGH MAGDALENO, PT #### Testing performed at [address] [address] Lymphocytes/100 WBC (Bld) 6.4 % Low 20.0-55.0 [facility] Comment on above: Performed By: #### R HUGH MAGDALENO, PT #### Testing performed at [address] [address] Monocytes (Bld) [#/Vol] 0.4 10*3/uL Normal 0.0-0.7 [facility] Comment on above: Performed By: #### HUGH FARIA, PT #### Testing performed at [address] [address] Monocytes/100 WBC (Bld) 4.1 % Normal 0.0-10.0 [facility] Comment on above: Performed By: #### HUGH FARIA, PT #### Testing performed at [address] [address] Neutrophils/100 WBC (Bld) 89.4 % High 37.0-75.0 [facility] Comment on above: Performed By: #### HUGH FARIA, PT #### Testing performed at [address] [address] Erythrocyte distribution width (RBC) [Ratio] 17.0 % High 11.5-14.5 [facility] Comment on above: Performed By: #### R HUGH MAGDALENO, PT #### Testing performed at [address] [address] Hematocrit (Bld) [Volume fraction] 33.9 % Low 42.0-52.0 [facility] Comment on above: Performed By: #### R HUGH MAGDALENO, PT #### Testing performed at [address] [address] Hemoglobin (Bld) [Mass/Vol] 11.7 g/dL Low 14.0-18.0 [facility] Comment on above: Performed By: #### R ENF ACBC, PT #### Testing performed at [place] [id number] MCH (RBC) [Entitic mass] 30.0 pg Normal 26.0-35.0 [facility] Comment on above: Performed By: #### R ENF ACBC, PT #### Testing performed at [place] [id number] MCHC (RBC) [Mass/Vol] 34.5 g/dL Normal 27.0-37.0 [facility] Comment on above: Performed By: #### R RASTA ACBC, PT #### Testing performed at [place] [id number] MCV (RBC) [Entitic vol] 87.2 fL Normal 80.0-100.0 [facility] Comment on above: Performed By: #### R ENEleni ACBC, PT #### Testing performed at [place] [id number] Platelet mean volume (Bld) [Entitic vol] 9.2 fL Normal 7.4-11.0 [facility] Comment on above: Performed By: #### R LUMA MAGDALENOBC, PT #### Testing performed at [place] [id number] Platelets (Bld) [#/Vol] 154 10*3/uL Normal 130.0-400.0 [facility] Comment on above: Performed By: #### R ENF ACBC, PT #### Testing performed at [place] [id number] RBC (Bld) [#/Vol] 3.89 10*6/uL Low 4.0-6.1 [facility] Comment on above: Performed By: #### R ENF ACBC, PT #### Testing performed at [place] [id number] WBC (Bld) [#/Vol] 9.5 10*3/uL Normal 3.6-11.0 [facility] Comment on above: Performed By: #### R ENF, ACBC, PT #### Testing performed at [address] [address] CBC, EDIF, PLATELETon 2021 ABSOLUTE BASOPHIL COUNT 0.0 10*3/uL 0.0 - 0.2 10*3/uL [facility] Comment on above: Testing performed at [place], [place] [address] Basophils/100 WBC (Bld) 0.1 % 0.0 - 2.0 % [facility] Differential cell count method Nom (Bld) AUTO DIFF % [facility] Eosinophils (Bld) [#/Vol] 0.00 10*3/uL 0.0 - 0.7 10*3/uL [facility] Eosinophils/100 WBC (Bld) 0.0 % 0.0 - 11.0 % [facility] Erythrocyte distribution width (RBC) [Ratio] 17.0 % High 11.5 - 14.5 % [facility] Hematocrit (Bld) [Volume fraction] 33.9 % Low 42.0 - 52.0 % [facility] Hemoglobin (Bld) [Mass/Vol] 11.7 g/dL Low [facility] Interpretation and review of laboratory results Abnormal [facility] Lymphocytes (Bld) [#/Vol] 0.60 10*3/uL Low 1.2 - 3.4 10*3/uL [facility] Lymphocytes/100 WBC (Bld) 6.4 % Low 20.0 - 55.0 % [facility] MCH (RBC) [Entitic mass] 30.0 pg 26.0 - 35.0 PG [facility] MCHC (RBC) [Mass/Vol] 34.5 g/dL [facility] MCV (RBC) [Entitic vol] 87.2 fL [facility] Monocytes (Bld) [#/Vol] 0.4 10*3/uL 0.0 - 0.7 10*3/uL [facility] Monocytes/100 WBC (Bld) 4.1 % 0.0 - 10.0 % [facility] Neutrophils (Bld) [#/Vol] 8.5 10*3/uL High 1.4 - 6.5 10*3/uL [facility] Neutrophils/100 WBC (Bld) 89.4 % High 37.0 - 75.0 % [facility] Platelet mean volume (Bld) [Entitic vol] 9.[address] [facility] Platelets (Bld) [#/Vol] 154 10*3/uL 130.0 - 400.0 10*3/uL [facility] RBC (Bld) [#/Vol] 3.89 10*6/uL Low 4.0 - 6.1 10*6/uL [facility] WBC (Bld) [#/Vol] 9.5 10*3/uL 3.6 - 11.0 10*3/uL [facility] PROTIMEon 03-16-2022 INR Coag (PPP) [Relative time] 1.37 {INR} High 0.85-1.10 [facility] Comment on above: Result Comment: 2.0-3.0 THERAPEUTIC RANGE 2.5-3.5 MECHANICAL VALVE RANGE Testing performed at [place] [address] Performed By: #### R ENHUGH Knowles, PT #### [place] [address] PT Coag (PPP) [Time] 16.9 s High 11.8-14.4 [facility] Comment on above: Performed By: #### R ENFLUMABC, PT #### [place] [address] PROTIME-INRon 03-16-2022 INR Coag (PPP) [Relative time] 1.37 {INR} High [facility] Comment on above: 2.0-3.0 THERAPEUTIC RANGE 2.5-3.5 MECHANICAL VALVE RANGE Testing performed at [place] [address] Interpretation and review of laboratory results Abnormal [facility] PT Coag (PPP) [Time] 16.9 s High [facility] RENAL FUNCTION PANELon 03-16 Albumin [Mass/Vol] 3.3 G/dl Low 3.5 - 5.0 G/dl [facility] Calcium [Mass/Vol] 7.9 mg/dL Low [facility] Chloride [Moles/Vol] 106 mmol/L [facility] Comment on above: Please note: Triglyc eride levels of 600mg/dL or higher may positively bias chloride results by approximately 2.1 mmol CO2 [Moles/Vol] 23 mmol/L [facility] Creatinine [Mass/Vol] 1.20 mg/dL [facility] GFR COMMENT Average GFR for 70+ years old = 75. [facility] Comment on above: Chronic Kidney disea se, GFR = <60. Kidney failure, GFR = <15. The GFR estimate is not adjusted for extreme body surface area or acute process, nor has it been validated for women or ethnic groups other than and . Testing performed at [place], [place] [address] GFR/1.73 sq M.predicted among blacks MDRD (S/P/Bld) [Vol rate/Area] 76 mL/min/{1.73_m2} ml/min/1.[address] [facility] GFR/1.73 sq M.predicted among non-blacks MDRD (S/P/Bld) [Vol rate/Area] 63 mL/min/{1.73_m2} ml/min/1.[address] [facility] Glucose post fast [Mass/Vol] 230 mg/dL High [facility] Comment on above: NORMAL <100 mg/dL PREDIABETES 101-126 mg/dL DIABETES 126 mg/dL or higher Interpretation and review of laboratory results Abnormal [facility] Phosphate [Mass/Vol] 2.9 mg/dL [facility] Potassium [Moles/Vol] 4.5 mmol/L [facility] Sodium [Moles/Vol] 136 mmol/L Low [facility] Urea nitrogen [Mass/Vol] 22 mg/dL High [facility] RENAL PANEL,FASTINGon 03-16- 2021 ALBUMIN 3.3 G/dl Low 3.5-5.0 [facility] Comment on above: Performed By: #### R HUGH MAGDALENO, PT #### Testing performed at [address] [address] Calcium [Mass/Vol] 7.9 mg/dL Low 8.4-10.2 [facility] Comment on above: Performed By: #### R ENF, ACBC, PT #### [place] [address] Chloride [Moles/Vol] 106 mmol/L Normal 98-107 [facility] Comment on above: Result Comment: Alla noland note: Triglyceride levels of 600mg/dL or higher may positively bias chloride results by approximately 2.1 mmol Performed By: #### R ENF ACBC, PT #### [place] [address] CO2 [Moles/Vol] 23 mmol/L Normal 22-30 [facility] Comment on above: Performed By: #### R ENF ACBC, PT #### [place] [address] Creatinine [Mass/Vol] 1.20 mg/dL Normal 0.7-1.2 [facility] Comment on above: Performed By: #### R ENF ACBC, PT #### [place] [address] EST. GFR, 76 ml/min/1.73sq.m Normal [facility] Comment on above: Performed By: #### R NICKF ACBC, PT #### [place] [address] EST. GFR,Non 63 ml/min/1.73sq.m [facility] Comment on above: Performed By: #### R ENF ACBC, PT #### [place] [address] GFR Information Average GFR for 70+ years old = 75. Normal [facility] Comment on above: Result Comment: [employer] Worker david Kidney disease, GFR = <60. Kidney failure, GFR = <15. The GFR estimate is not adjusted for extreme body surface area or acute process, nor has it been validated for women or ethnic groups other than and . Testing performed at [place] [address] Performed By: #### R ENF ACBC, PT #### [place] [address] Glucose [Mass/Vol] 230 mg/dL High 70-100 [facility] Comment on above: Result Comment: NORMAL <100 mg/dL PREDIABETES 101-126 mg/dL DIABETES 126 mg/dL or higher Performed By: #### R HUGH MAGDALENO, PT #### Testing performed at [address] [address] PHOSPHOROUS 2.9 MG/DL Normal 2.5-4.5 [facility] Comment on above: Performed By: #### HUGH FARIA, PT #### Testing performed at [address] [address] Potassium [Moles/Vol] 4.5 mmol/L Normal 3.5-5.1 [facility] Comment on above: Performed By: #### R HUGH MAGDALENO, PT #### Testing performed at [place] [id number] Sodium [Moles/Vol] 136 mmol/L Low 137-145 [facility] Comment on above: Performed By: #### HUGH FARIA, PT #### Testing performed at [place] [id number] Urea nitrogen [Mass/Vol] 22 mg/dL High 7-20 [facility] Comment on above: Performed By: #### HUGH FARIA, PT #### Testing performed at [address] [address] GLUCOSE (POC DEVICE)on 03-15 GLUCOSE, POINT OF CARE 118 [facility] Interpretation and review of laboratory results Abnormal [facility] [employer] Pumper Gager [id number] [facility] Comment on above: Testing performed at [place] [id number] [facility] MRSA SCREENon 03-15-2022 MRSA DNA HERIBERTO+probe Ql (Unsp spec) Not detected Normal NOT DETECTED [facility] Comment on above: Performed By: #### M RSAST #### Testing performed at [address] [address] STAPH AUREUS SCREEN Not detected Normal NOT DETECTED [facility] Comment on above: Result Comment: Test ing performed at [place] [address] Performed By: #### M RSAST #### [place] [address] NOVEL CORONAVIRUSon 03-15-20 22 NARRATIVE This test was perfor med using isothermal HERIBERTO and has been approved as Emergency Use Authorization (EUA) for the qualitative detection [id number] nucleic acid. Normal [facility] Comment on above: Result Comment: Test ing performed at [place] [address] Performed By: #### C OVID #### [place] [address] SARS-CoV-2 (COVID-19) RNA HERIBERTO+probe Ql (Unsp spec) Not detected Normal NOT DETECTED [facility] Comment on above: Result Comment: Nega [...] #### C OVID #### [place] [address] NOVEL CORONAVIRUS LAB 1 - NA SOPHARYNGEALon 03-15-2022 NARRATIVE -1 This test was perfor med using isothermal HERIBERTO and has been approved as Emergency Use Authorization (EUA) for the qualitative detection [id number] [facility] Comment on above: Testing performed at [place] [address] SARS-CoV-2 (COVID-19) RNA HERIBERTO+probe Ql (Unsp spec) Not detected NOT DETECTED [facility] Comment on above: Negative results do [...] patient is critically ill or clinically deteriorating. [facility] POCT GLUCOSEon 03-15-2022 Glucose [Mass/Vol] 118 mg/dL High 70-100 [facility] Comment on above: Performed By: #### P OCGLU #### [place] [address] ENTRY LEVEL [id number] Normal [facility] Comment on above: Result Comment: Test ing performed at [place] [address] Performed By: #### P OCGLU #### [place] [address] PROTIMEon 03-15-2022 INR Coag (PPP) [Relative time] 1.36 {INR} High 0.85-1.10 [facility] Comment on above: Result Comment: 2.0-3.0 THERAPEUTIC RANGE 2.5-3.5 MECHANICAL VALVE RANGE Testing performed at [place] [address] Performed By: #### P T #### [place] [address] PT Coag (PPP) [Time] 16.8 s High 11.8-14.4 [facility] Comment on above: Performed By: #### P T #### [place] [address] PROTIME-INRon 03-15-2022 INR Coag (PPP) [Relative time] 1.36 {INR} High [facility] Comment on above: 2.0-3.0 THERAPEUTIC RANGE 2.5-3.5 MECHANICAL VALVE RANGE Testing performed at [place] [address] Interpretation and review of laboratory results Abnormal [facility] PT Coag (PPP) [Time] 16.8 s High [facility] PTTon 03-15-2022 aPTT Coag (Bld) [Time] 28.7 s Normal 22.4-34.7 [facility] Comment on above: Result Comment: CARDIAC AND PE/DVT THERAPUTIC RANGE 69-97 SEC VASCULAR/THREATENED LIMB THERAPUTIC RANGE 80-112 SEC Testing performed at [place] [address] Performed By: #### P TT #### [place] [address] aPTT Coag (Bld) [Time] 28.[address] [facility] Comment on above: CARDIAC AND PE/DVT THERAPUTIC RANGE 69-97 SEC VASCULAR/THREATENED LIMB THERAPUTIC RANGE 80-112 SEC Testing performed at [address] SCREEN: MRSA ONLY, NARES (IS OLATION SCREEN)on 03-15-2022 MRSA isol Org specific cx Ql (Nose) Not detected NOT DETECTED [facility] STAPHYOCOCCUS AUREUS BY PCR Not detected NOT DETECTED [facility] Comment on above: Testing performed at [place] [address] [facility] [employer] TYPE AND SCREEN CROSSMATCH C ONVERTIBLEon 03-15-2022 TYPE AND SCREEN CROSSMATCH CONVERTIBLE WORKUP EXPIRES 03/18/2022,0810 ABO/RH(D) A POSITIVE ANTIBODY SCREEN NEGATIVE ARM BAND NUMBER [id number] Testing performed at [place] [address] Normal [facility] Comment on above: Performed By: #### T SCC #### [place] [address] TYPE AND SCREEN - POSSIBLE T RANSFUSIONon 03-15-2022 ABO and Rh group Nom (Bld ) Positive [employer] ARM BAND NUMBER [id number] [facility] ARM BAND NUMBER Testing performed at [address] [employer] Blood group antibody screen Ql Negative [employer] EXPIRATION DATE 03/18/2022,2354 [facility] [employer] [facility] XR KNEE RIGHT 2 VIEWSon 02-25 XR KNEE RIGHT 2 VIEWS EXAM: XR KNEE RIGHT 2 VIEWS HISTORY: COMPARISON: FINDINGS: Joint replacement is seen with overall preservation of normal alignment. No abnormal lucency is seen around the hardware. IMPRESSION: Joint replacement without hardware complication Normal [facility] XR Knee - right 2 Viewson [...] IMPRESSION IMPRESSION: Joint replacement without hardware complication [facility] Radiology Study observation (narrative) [facility] XR Knee - right 2 ViewsOrder ed By: Abel Resendiz on 03-15-[address] [facility] Work Phone: Complete Blood Count Auto Di ffon 11-10-2021 Basophils (Bld) [#/Vol] 0.0 10*3/uL Normal 0.0-0.2 [facility] Comment on above: Result Comment: PERF ORMED BY: [place] [address] PATHOLOGIST BUDGET COUNSELOR RICKY STRANGE M.D. Performed By: #### P T, CBC, PTT #### [facility] [address] [place] [address] [place] Basophils/100 WBC (Bld) 0.5 % Normal . [facility] Comment on above: Performed By: #### P T, CBC, PTT #### [facility] [address] [place] [address] [place] Eosinophils (Bld) [#/Vol] 0.1 10*3/uL Normal 0.0-0.45 [facility] Comment on above: Performed By: #### P T, CBC, PTT #### [facility] [address] [place] [address] [place] Eosinophils/100 WBC (Bld) 1.5 % Normal . [facility] Comment on above: Performed By: #### P T, CBC, PTT #### [address] Erythrocyte distribution width (RBC) [Ratio] 15.8 % High 12.0-14.8 [facility] Comment on above: Performed By: #### P T, CBC, PTT #### [address] Hematocrit (Bld) [Volume fraction] 37.8 % Low 38.8-50.0 [facility] Comment on above: Performed By: #### P T, CBC, PTT #### [address] Hemoglobin (Bld) [Mass/Vol] 12.5 g/dL Low 13.0-17.0 [facility] Comment on above: Performed By: #### P T, CBC, PTT #### [address] Lymphocytes (Bld) [#/Vol] 1.7 10*3/uL Normal 1.00-4.8 [facility] Comment on above: Performed By: #### P T, CBC, PTT #### [address] Lymphocytes/100 WBC (Bld) 33.0 % Normal . [facility] Comment on above: Performed By: #### P T, CBC, PTT #### [address] MCH (RBC) [Entitic mass] 28.5 pg Normal 27.5-35.2 [facility] Comment on above: Performed By: #### P T, CBC, PTT #### [address] MCV (RBC) [Entitic vol] 86.5 fL Normal 83.5-101 [facility] Comment on above: Performed By: #### P T, CBC, PTT #### [address] Mean Corpuscular HGB Conc 33.0 g/dL Normal 32.5-35.6 [facility] Comment on above: Performed By: #### P T, CBC, PTT #### [facility] [address] [place] [address] [place] Monocytes (Bld) [#/Vol] 0.4 10*3/uL Normal 0.0-0.8 [facility] Comment on above: Performed By: #### P T, CBC, PTT #### [facility] [address] [place] [address] [place] Monocytes/100 WBC (Bld) 8.5 % Normal . [facility] Comment on above: Performed By: #### P T, CBC, PTT #### [facility] [address] [place] [address] [place] Neutrophils (Bld) [#/Vol] 2.9 10*3/uL Normal 1.8-7.7 [facility] Comment on above: Performed By: #### P T, CBC, PTT #### [facility] [address] [place] [address] [place] Neutrophils/100 WBC (Bld) 56.5 % Normal . [facility] Comment on above: Performed By: #### P T, CBC, PTT #### [facility] [address] [place] [address] [place] Nucleated RBC/100 WBC (Bld) [Ratio] 0.2 % Normal 0-0.5 [facility] Comment on above: Performed By: #### P T, CBC, PTT #### [facility] [address] [place] [address] [place] Platelet mean volume (Bld) [Entitic vol] 8.7 fL Normal 6.6-10.1 [facility] Comment on above: Performed By: #### P T, CBC, PTT #### [facility] [address] [place] [address] [place] Platelets (Bld) [#/Vol] 200 10*3/uL Normal 150-450 [facility] Comment on above: Performed By: #### P T, CBC, PTT #### [facility] [address] [place] [address] [place] RBC (Bld) [#/Vol] 4.38 10*6/uL Normal 3.90-5.60 [facility] Comment on above: Performed By: #### P T, CBC, PTT #### [facility] [address] [place] [address] WBC (Bld) [#/Vol] 5.1 10*3/uL Normal 4.5-11.0 [facility] Comment on above: Performed By: #### P T, CBC, PTT #### [facility] [address] [place] [address] [place] ERCPon 11-10-2021 [place] ERCP [facility] [place] [address] [place] [address] Fluoroscopy Report Signed Patient: Tito Goncalves MR#: [id number] : 1945 Acct:[id number] Age/Sex: 76 / M ADM Date: 11/10/21 Loc: Room: Type: [facility] Attending Dr: Carmen Kahn DO Ordering Provider: Carmen Kahn Jr, DO Date of Service: 11/10/21 [place] ERCP: . Copies to: Carmen Kahn Jr, DO [place] ERCP 11/10/2021 1:00 PM SIGNS AND SYMPTOMS: [...] Martir Burch M.D.11/10/2021 2:37 PM Dictation Location: [place] [address] Transcribed By: [facility] 11/10/21 1437 Dictated By: Martir Burch II, MD 11/10/21 1428 Signed By: 11/10/21 1437 Normal [facility] Glucose Poct Glucometerson 0 11-10-2021 Commemt1 Glu2: Cleaned Meter Normal [facility] Comment on above: Result Comment: PERF ORMED BY: [place] [phone] PATHOLOGIST BUDGET COUNSELOR RICKY STRANGE M.D. Performed By: #### G LULS #### Point of Care testing , Glucose [Mass/Vol] 106 mg/dL Normal [facility] Comment on above: Result Comment: [place] Glucose Reference Range is dependent on time and content of last meal. Glucose of more than 200 mg/dL in a nonstressed, ambulatory subject supports the diagnosis of Diabetes Mellitus. Performed By: #### G LULS #### Point of Care testing , Partial Thromboplastin Timeo n 11-10-2021 aPTT Coag (Bld) [Time] 29.6 s Normal 25.1-36.5 [facility] Comment on above: Result Comment: PERF ORMED BY: [address] [place] [address] PATHOLOGIST BUDGET COUNSELOR RICKY STRANGE M.D. Performed By: #### P T, CBC, PTT #### [address] Prothrombin Time INRon 11-10 INR Coag (PPP) [Relative time] 1.3 {INR} Normal [facility] Comment on above: Result Comment: INR Therapeutic [...] By: #### P T, CBC, PTT #### [facility] [address] [place] [address] PT Coag (PPP) [Time] 14.4 s High 9.0-12.9 [facility] Comment on above: Performed By: #### P T, CBC, PTT #### [address] COVID-19 FRMCon 11-06-2021 SARS-CoV-2 (COVID-19) RNA HERIBERTO+probe Ql (Unsp spec) Negative Normal Negative [facility] Comment on above: Order Comment: Healt hcare Worker?: N Result Comment: Testing for SARS-CoV-2 by RT-PCR This test was developed and its performance characteristics determined by [employer] and validated at the [facility]. This test has not been FDA cleared [...] is terminated or revoked sooner. PERFORMED BY: [place] [address] PATHOLOGIST BUDGET COUNSELOR RICKY STRANGE M.D. Performed By: #### C OVID 19 [facility] #### [address] Operative Reporton 9 Operative Report MR#: [id number] [facility] Pt. Name: Tito Goncalves Room #: CC [...] form. The patient was brought to the medical lab scientist and a transesophageal echocardiogram was performed under [...] Flores MD Date Trans: 06/14/2019 12:23 A/asad [id number]_[id number] cc: Augustine Metz D.O. [address] [place] [id number] Ryan Cardenas M.D. [address] [place] [address] Normal [facility] Repor ton 06-21-2017 Health Services Clinic Report Type: OrthopedicDictated [...] questions or concerns in the meantime. Normal [facility] Vital Signs Date Time Vital Sign Value Performing Clinician Facility 01-31-2024 15:34-0400 Body height 181.[address] [facility] 01-31-2024 15:34-0400 Body mass index (BMI) [Ratio] 34.5 kg/m2 [facility] 01-31-2024 15:34-0400 Body weight 114.[address] [facility] 01-31-2024 15:34-0400 Diastolic blood pressure 79 mm[Hg] [facility] 01-31-2024 15:34-0400 Heart rate 53 /min [facility] 01-31-2024 15:34-0400 Respiratory rate 12 /min [facility] 01-31-2024 15:34-0400 Systolic blood pressure 130 mm[Hg] [facility] 10-31-2023 10:30-0500 Body height Augustine Ball Other [facility] [employer] Other 10-31-2023 10:30-0500 Body mass index (BMI) [Ratio] 33.47 kg/m2 Augustine Ball Other [facility] [employer] Other 10-31-2023 10:30-0500 Body weight 110.41 kg Augustine Ball Other [facility] [facility] [employer] Other 10-31-2023 10:30-0500 Diastolic blood pressure 68 mm[Hg] Augustine Ball Other [facility] [facility] [employer] Other 10-31-2023 10:30-0500 Respiratory rate 12 /min Augustine Ball Other [employer] [facility] [employer] Other 10-31-2023 10:30-0500 Systolic blood pressure 122 mm[Hg] Augustine Ball Other [employer] Other 03-16-2023 11:19-0400 Body height 182.9 cm Azul Virginie HEEL FINISHER-WEIGHBRIDGE OPERATOR Work Phone: [employer] 03-16-2023 11:19-0400 Body mass index (BMI) [Ratio] 33.23 kg/m2 Azul UnboundID HEEL FINISHER-WEIGHBRIDGE OPERATOR Work Phone: [employer] 03-16-2023 11:19-0400 Body temperature 97.2 [degF] Azul UnboundID HEEL FINISHER-WEIGHBRIDGE OPERATOR Work Phone: [employer] 03-16-2023 11:19-0400 Body weight 111.13 kg Azul UnboundID HEEL FINISHER-WEIGHBRIDGE OPERATOR Work Phone: [employer] 01-05-2023 12:00-0400 Body height Augustine Ball Other [employer] Other 01-05-2023 12:00-0400 Body mass index (BMI) [Ratio] 33.36 kg/m2 Augustine Ball Other [employer] Other 01-05-2023 12:00-0400 Body weight 110.04 kg Augustine Ball Other [employer] Other 01-05-2023 12:00-0400 Diastolic blood pressure 70 mm[Hg] Augustine Ball Other [employer] Other 01-05-2023 12:00-0400 Respiratory rate 12 /min Augustine Ball Other [employer] Other 01-05-2023 12:00-0400 Systolic blood pressure 118 mm[Hg] Augustine Ball Other [employer] Other 10-04-2022 12:00-0500 Body height Augustine Ball Other [employer] Other 10-04-2022 12:00-0500 Body mass index (BMI) [Ratio] 33.44 kg/m2 Augustine Ball Other [employer] Other 10-04-2022 12:00-0500 Body weight 110.32 kg Augustine Ball Other [employer] Other 10-04-2022 12:00-0500 Diastolic blood pressure 78 mm[Hg] Augustine Ball Other [employer] Other 10-04-2022 12:00-0500 Respiratory rate 12 /min Augustine Ball Other [employer] Other 10-04-2022 12:00-0500 Systolic blood pressure 128 mm[Hg] Augustine Ball Other [employer] Other 10-01-2022 08:30-0500 Diastolic blood pressure 77 mm[Hg] [facility] Rojas [facility] 10-01-2022 08:30-0500 Systolic blood pressure 132 mm[Hg] [facility] Ro[facility] 07-08-2022 11:47-0400 Body height 182.9 cm Pastor Bedoya MD Work Phone: [employer] 07-08-2022 11:47-0400 Body mass index (BMI) [Ratio] 33.23 kg/m2 Pastor Bedoya MD Work Phone: [employer] 07-08-2022 11:47-0400 Body weight 111.13 kg Pastor Bedoya MD Work Phone: [employer] 05-03-2022 08:48-0400 Blood Pressure Location Mc GAGE [facility] 05-03-2022 08:48-0400 Diastolic blood pressure 67 mm[Hg] Mcmaury ALMONTE [facility] 05-03-2022 08:48-0400 Heart rate 70 /min Mc ALMONTE [facility] 05-03-2022 08:48-0400 Respiratory rate 16 /min Mc ALMONTE [facility] 05-03-2022 08:48-0400 Systolic blood pressure 120 mm[Hg] Mc ALMONTE [facility] 04-08-2022 09:49-0400 Body height 182.9 cm Azul Rachel HEEL FINISHER-WEIGHBRIDGE OPERATOR Work Phone: [facility] 04-08-2022 09:49-0400 Body mass index (BMI) [Ratio] 33.23 kg/m2 Azul Virginie HEEL FINISHER-WEIGHBRIDGE OPERATOR Work Phone: [employer] [facility] 04-08-2022 09:49-0400 Body temperature 96.91 [degF] Azul Rachel HEEL FINISHER-WEIGHBRIDGE OPERATOR Work Phone: [employer] [facility] 04-08-2022 09:49-0400 Body weight 111.13 kg Azul Rachel HEEL FINISHER-WEIGHBRIDGE OPERATOR Work Phone: [employer] [facility] 03-16-2022 11:00-0400 Body temperature 97.7 [degF] aPstor Bedoya MD Work Phone: [employer] [facility] 03-16-2022 11:00-0400 Diastolic blood pressure 70 mm[Hg] Pastor Bedoya MD Work Phone: [employer] 03-16-2022 11:00-0400 Heart rate 77 /min Pastor Bedoya MD Work Phone: [employer] 03-16-2022 11:00-0400 Respiratory rate 14 /min Pastor Bedoya MD Work Phone: [employer] 03-16-2022 11:00-0400 SaO2% (BldA) [Mass fraction] 96 % Pastor Bedoya MD Work Phone: [employer] 03-16-2022 11:00-0400 Systolic blood pressure 142 mm[Hg] Pastor Bedoya MD Work Phone: [employer] 03-15-2022 09:00-0400 Body height 182.9 cm Pastor Bedoya MD Work Phone: [employer] 03-15-2022 09:00-0400 Body mass index (BMI) [Ratio] 31.73 kg/m2 Pastor Bedoya MD Work Phone: [employer] 03-15-2022 09:00-0400 Body weight 106.14 kg Pastor Bedoya MD Work Phone: [employer] 2022 12:57-0400 Body height 182.9 cm Pastor Bedoya MD Work Phone: [employer] 2022 12:57-0400 Body mass index (BMI) [Ratio] 33.23 kg/m2 Pastor Bedoya MD Work Phone: [employer] 2022 12:57-0400 Body temperature 97.2 [degF] Pastor Bedoya MD Work Phone: [employer] 2022 12:57-0400 Body weight 111.13 kg Pastor Bedoya MD Work Phone: [employer] 11-04-2021 14:30-0500 Body height Carmen Khan Other [employer] Other 03-20-2020 11:06-0400 BMI (Body Mass Index) 33.63 kg/m2 [facility] 03-20-2020 11:06-0400 Body Temperature 97.5 [degF] [facility] 03-20-2020 11:06-0400 Body weight 112.49 kg [facility] 03-20-2020 11:060400 Height 182.9 cm [facility] 1945 00:00-0500 >na< Damari Rojas Dept. of Dermato logy Encounters Encounter Date Encounter Type Care Provider Facility Start: 02-09-2024 End: 02-09-2024 ambulatory [place] [facility] Start: 01-31-2024 End: 01-31-2024 ambulatory [facility] Work Phone: Start: 01-31-2024 End: 01-31-2024 Patient encounter procedure [facility] Work Phone: Start: 01-31-2024 Non-patient / Non-visit [facility] Work Phone: Start: 01-29-2024 Evaluation and management of inpatient BRIGITTE PERRY [facility] Start: 01-27-2024 Evaluation and management of inpatient [facility] Start: 01-26-2024 Evaluation and management of inpatient [facility] Start: 01-26-2024 Evaluation and management of inpatient [facility] Start: 01-25-2024 Evaluation and management of inpatient [facility] Start: 01-25-2024 Evaluation and management of inpatient [facility] Start: 01-25-2024 Evaluation and management of inpatient [facility] Start: 01-25-2024 Evaluation and management of inpatient [facility] Start: 01-25-2024 Evaluation and management of inpatient [facility] Start: 01-24-2024 End: 01-29-2024 Evaluation and management of inpatient [facility] Start: 01-18-2024 Non-patient / Non-visit [facility] Work Phone: Start: 01-10-2024 End: 01-10-2024 ambulatory OSMAN Damon SHAH Not Available Start: 12-30-2023 End: 12-30-2023 ambulatory JOSE R DODD Not Available Start: 12-16-2023 Non-patient / Non-visit [facility] Work Phone: Start: 11-01-2023 End: 11-01-2023 ambulatory Augustine Metz Other [employer] Other Start: 11-01-2023 Telephone encounter Augustine Metz [facility] Start: 10-31-2023 End: 10-31-2023 ambulatory Augustine Metz Other [employer] Other Start: 10-31-2023 Office outpatient visit 25 minutes Augustine Metz [facility] Start: 10-28-2023 Bamboo flowsheet Jose R Hogan Za hler DO Work Phone: [facility] Start: 10-28-2023 Bamboo flowsheet Jose R Hogan Za hler DO Work Phone: [facility] Start: 10-28-2023 End: 10-28-2023 ambulatory JOSE R DODD Not Available Start: 10-24-2023 End: 10-24-2023 ambulatory AB [facility] Start: 09-16-2023 End: 01-24-2024 ambulatory [facility] Start: 09-06-2023 End: 09-06-2023 ambulatory [facility] Start: 08-29-2023 End: 08-29-2023 ambulatory JOSE R DODD Not Available Start: 08-28-2023 End: 08-29-2023 ambulatory JOSE R DODD Not Available Start: 08-26-2023 End: 08-26-2023 ambulatory JOSE R DODD Not Available Start: 07-11-2023 End: 07-11-2023 ambulatory Augustine Metz Other [employer] Other Start: 07-11-2023 Telephone encounter [facility] Start: 07-10-2023 End: 07-10-2023 ambulatory Augustine Metz Other [employer] Other Start: 07-10-2023 Telephone encounter [facility] Start: 07-05-2023 End: 07-05-2023 Emergency department patient visit Augustine Metz Facility:[facility] Start: 03-16-2023 ambulatory AZUL RACHEL [facility] Start: 03-16-2023 End: 03-16-2023 Office outpatient visit 15 minutes Azul Rachel APRN-TOBI Work Phone: [facility] Comment on above: Hx of total knee art hroplasty, right (Primary Dx) Start: 03-16-2023 End: 03-16-2023 Subsequent hospital visit by physician Azul LAN Work Phone: [facility] Start: 02-28-2023 End: 02-28-2023 [facility] Start: 02-01-2023 ambulatory AUGUSTINE METZ Facilit y:[facility] Start: 01-24-2023 End: 02-23-2023 ambulatory SHAIKH Tiburcio PRICE Facility:[facility] Start: 01-22-2023 End: 01-22-2023 ambulatory Augustine Metz Other [employer] Other Start: 01-22-2023 Telephone encounter [facility] Start: 2023 End: 01-22-[address] AUGUSTINE METZ Facility:[facility] Start: 01-05-2023 End: 01-05-2023 ambulatory Augustine Metz Other [employer] Other Start: 01-05-2023 Office outpatient visit 25 minutes Augustine Metz [facility] Start: 12-27-2022 End: 2023 ambulatory SHAIKH Tiburcio PRICE Facility:[facility] Start: 11-24-2022 End: 12-24-2022 ambulatory SHAIKH Tiburcio PRICE Facility:[facility] Start: 11-10-2022 End: 11-10-2022 ambulatory Augustine Metz Other [employer] Other Start: 11-10-2022 Telephone encounter Augustine PHILIPPE [facility] Start: 11-09-2022 Telephone encounter Augustine [facility]ILIPPE [facility] Start: 11-09-2022 End: 11-10-2022 ambulatory AUGUSTINE METZ [facility] [employer] Other Start: 11-08-2022 ambulatory AUGUSTINE METZ Facilit y:[facility] Start: 11-01-2022 End: 11-02-[address] DOCTOR ABERNATHY Facility:[facility] Start: 10-28-2022 ambulatory AUGUSTINE METZ Facilit y:[facility] Start: 10-27-2022 End: 11-24-2022 ambulatory SHAIKH Tiburcio PRICE Facility:[facility] Start: 10-26-2022 End: 10-27-2022 ambulatory PUJA HOLBROOK MD Facility:[facility] Start: 10-19-2022 End: 10-20-[address] AUGUSTINE METZ Facility:[facility] Start: 10-04-2022 Damari Rojas Dept. of D ermatology Start: 10-04-2022 End: 10-04-2022 ambulatory Augustine Metz Other [employer] Other Start: 10-04-2022 Office outpatient visit 25 minutes Augustine Metz [facility] Start: 10-01-2022 ambulatory Ms. Osman Shah Facility:[id number] Start: 09-27-2022 End: 10-27-2022 ambulatory SHAIKH Tiburcio PRICE Facility:[facility] Start: 09-14-2022 Damari Rojas Dept. of D ermatology Start: 09-09-2022 Pre-procedure evaluation check Augustine Metz Other [facility] [employer] Other Start: 09-07-[address] Macario Bui Facility:[id number] Start: 08-26-2022 End: 09-26-2022 ambulatory SHAIKH Tiburcio PRICE Facility:[facility]1 Start: 07-27-2022 End: 08-25-2022 ambulatory SHAIKH Tiburcio PRICE Facility:[facility] Start: 07-13-2022 End: 07-14-[address] AUGUSTINE METZ Facility:[facility] Start: 07-08-2022 ambulatory PASTOR BEDOYA [facility] Start: 07-08-2022 End: 07-08-2022 Office outpatient visit 15 minutes Pastor Bedoya MD Work Phone: [facility] Comment on above: Hx of total knee art hroplasty, right (Primary Dx) Start: 07-08-2022 End: 07-08-2022 Subsequent hospital visit by physician Pastor Bedoya MD Work Phone: [facility] Start: 06-28-2022 End: 06-29-[address] AUGUSTINE METZ Facility:[facility]1 Start: 06-28-2022 End: 07-26-2022 ambulatory SHAIKH Tiburcio PRICE Facility:[facility] Start: 06-15-2022 End: 06-16-[address] AUGUSTINE METZ Facility:[facility] Start: 05-27-2022 End: 06-26-2022 ambulatory SHAIKH Tiburcio PRICE Facility:[facility]1 Start: 05-03-2022 End: 05-03-2022 Patient encounter procedure Mc ALMONTE [facility] Start: 04-26-2022 End: 04-27-[address] AUGUSTINE METZ Facility:[facility]1 Start: 04-26-2022 End: 05-26-2022 ambulatory SHAIKH Tiburcio PRICE Facility:[facility]1 Start: 04-19-2022 End: 05-08-[address] AUGUSTINE METZ Facility:[facility]1 Start: 04-08-2022 ambulatory AZUL VIRGINIE [facility] Start: 04-08-2022 End: 04-08-2022 Postop follow up visit related to original px Azul CASIANOWEIGHBRIDGE OPERATOR Work Phone: [facility] Comment on above: Hx of total knee art hroplasty, right (Primary Dx) Start: 04-08-2022 End: 04-08-2022 Subsequent hospital visit by physician Azul LAN Work Phone: [facility] Start: 04-07-2022 End: 04-08-[address] AUGUSTINE METZ Facility:[facility]1 Start: 03-26-2022 End: 04-23-2022 ambulatory SHAIKH Tiburcio PRICE Facility:[facility]1 Start: 03-15-2022 End: 03-16-2022 Patient encounter status Pastor Bedoya MD Work Phone: [facility] Start: 03-15-2022 End: 03-16-2022 Subsequent hospital visit by physician Pastor Bedoya MD Work Phone: [facility] Comment on above: S/P total knee arthr oplasty, right Start: 2022 End: 2022 Office outpatient new 60 minutes Pastor Bedoya MD Work Phone: [facility] Comment on above: Right knee pain, uns pecified chronicity (Primary Dx); Pain in prosthetic joint, sequela Start: 2022 End: 2022 Subsequent hospital visit by physician Pastor Bedoya MD Work Phone: [facility] Start: 11-04-2021 End: 11-04-2021 ambulatory Carmen Kahn Other [employer] Other Start: 11-04-2021 Office outpatient visit 25 minutes Carmen Kahn [facility] Start: 11-03-2021 End: 11-03-2021 ambulatory Carmen Kahn Other [employer] Other Start: 11-03-2021 Telephone encounter Carmen Kahn [facility] Gastro[facility] Start: 03-20-2020 End: 03-20-2020 Office outpatient visit 15 minutes Pastor Bedoya Work Phone: [facility] Comment on above: 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) Start: 03-20-2020 End: 03-20-2020 Subsequent hospital visit by physician Azul Rachel APRN-TOBI Work Phone: [facility] Start: 06-13-2019 End: 06-14-2019 Patient encounter procedure EDMONDFAY JONES Facility:[facility] Procedures Date Procedure Procedure Detail Performing Clinician Start: 10-28-2023 Computerized ophthalmic imaging retina Jose R Dodd DO Work Phone: Start: 10-28-2023 End: 10-28-2023 Oph medical xm&eval comprhnsv estab pt 1/> Advanced [...] Work Phone: Start: 03-15-2022 Prothrombin time Azul Virginie HEEL FINISHER-WEIGHBRIDGE OPERATOR Work Phone: Start: 03-15-2022 Cultyp nuc acid amp prb cult/isolate ea marisela Rachel HEEL FINISHER-WEIGHBRIDGE OPERATOR Work Phone: Start: 03-15-2022 Sars-cov-2 detection by dna/rna Azul ramirez HEEL FINISHER-WEIGHBRIDGE OPERATOR Work Phone: Start: 03-15-2022 Antibody screen rbc each serum technique Pastor Bedoya MD Work Phone: Start: 03-15-2022 End: 03-15-2022 Thromboplastin time partial plasma/whole blood Azul Rachel HEEL FINISHER-WEIGHBRIDGE OPERATOR Work Phone: Start: 01-10-2020 Renal lithotripsy Mc ALMONTE Start: 10-23-2019 Cystoscopic removal of ureteric stent Mc ALMONTE Start: 09-26-2019 Endoscopic retrograde cholangiopancreatography Mc ALMONTE Cholecystectomy [facility] Colonoscopy [facility] ALMONTE Depression screening Ramirez Metz Other Total knee replacement Ro luu ALMONTE Plan of Treatment Date Care Activity Detail Author Start: 01-10-2024 End: 01-10-2024 Patient encounter procedure 01/10/2024 9:35 AM EDT Office Visit [facility] [address] [place] [address] Osman Shah, HEEL FINISHER-WEIGHBRIDGE OPERATOR [address] [place] [address] [facility] Start: 10-28-2023 End: 10-28-2023 Patient encounter procedure 10/28/2023 9:30 AM EST Procedure Visit [facility] [address] [place] [address] Jose R Dodd, DO [address] [place] [address] Arrived [facility] Comment on above: Arrived Start: 05-27-2023 Influenza vaccination Influenza Vacc ine (#1) [facility] Start: 03-16-2023 End: 03-16-2023 Patient encounter procedure 03/16/2023 Office Visit Orthopaedics Azul Rachel, HEEL FINISHER-WEIGHBRIDGE OPERATOR [address] [place] [address] [facility] Start: 10-22-2022 COVID-19 VACCINE (6 - Pfizer series) COVID-19 VACCINE (6 - Pfizer series) [facility] Start: 08-21-2022 Hemoglobin A1c measurement HBA1C TEST [facility] Start: 07-08-2022 End: 07-08-2022 Patient encounter procedure 07/08/2022 Office Visit Orthopaedics Pastor Bedoya MD [address] [place] [address] [facility] Start: 05-27-2022 Influenza vaccination A [facility] Start: 04-08-2022 End: 04-08-2022 Patient encounter procedure 04/08/2022 Office Visit Orthopaedics Azul Rachel, HEEL FINISHER-WEIGHBRIDGE OPERATOR [address] [place] [address] [facility] Start: 02-18-2022 End: 02-18-2022 ambulatory 02/18/2022 Pre-Operative Nurse Assessment Internal Medicine [facility] Pre Admission Start: 05-27-2020 Influenza vaccination INFLUENZ A VACCINE (Season Ended) [facility] Start: 12-25-2014 Pneumococcal vaccination PNEUMOCOCCAL VACCINE SERIES (2 - PCV) [facility] Start: 12-25-2014 Pneumococcal Vaccine : 65+ Years (2 - PCV) Pneumococcal Vaccine: 65+ Years (2 - PCV) [facility] Start: 2011 Abdominal aortic aneurysm screening ABDOMINAL AORTIC ANEURYSM HIGH RISK SCREEN [facility] Start: 2011 Pneumococcal vaccination [facility] Start: 01-22-1996 Colonoscopy COLORECTAL CAN CER SCREENING DISCUSSION [facility] Start: 01-22-1996 Prostate specific antigen measurement PROSTATE CANCER SCREENING DISCUSSION [facility] Start: 01-22-1996 Zoster vaccine hzv live for subcutaneous use ZOSTER (SHINGLES) VACCINE (1 of 2) [facility] Start: 1991 Colonoscopy COLORECTAL CAN CER SCREENING DISCUSSION [facility] Start: 1991 Screening for malignant neoplasm of colon COLORECTAL CANCER SCREENING DISCUSSION [facility] Start: 1986 Fasting lipid profile LIPID SCREENIN G [facility] Start: 1965 Third diphtheria, tetanus and acellular pertussis (DTaP) vaccination TDAP (ADULT) [facility] Start: 01-22-1964 Tetanus vaccination TETANUS [facility] Start: 1951 COVID-19 VACCINE (#1) COVID-19 VACCI NE (#1) [facility] Start: 1946 COVID-19 VACCINE (#1) COVID-19 VACCI NE (#1) [facility] Start: 1946 Diabetic foot examination DIABETIC FOOT EXAM [facility] Start: 1946 Diabetic retinal eye exam EYE EXAM [facility] Start: 1946 Glaucoma screening EYE EXAM [facility] Start: 1946 Hepatitis B vaccination HEP B VACCINE (1 of 3 - 3-dose series) [facility] Start: 1946 Hepatitis C antibody , confirmatory test HEPATITIS C VIRUS SCREENING [facility] Start: 1946 Hepatitis C screening HEPATITI S C VIRUS SCREENING [facility] Start: 1946 Lipid panel LIPIDS [facility] Start: 1946 LIPIDS LIPIDS [facility] Start: 1946 Microalbumin measurement, urine, quantitative URINE MICROALBUMIN TEST [facility] Start: 1946 Potassium [Moles/Vol] POTASSIUM A [facility] Start: 1946 Tetanus vaccination TETANUS [facility] Start: 1946 Urine screening for protein URINE MICROALBUMIN TEST [facility] Radiography for bone length studies XR BONE LENGTH STUDY Imaging Routine Hx of total knee arthroplasty, right 07/08/2022 11:01 AM EDT [facility] Work Phone: SURGICAL PATHOLOGY REQUEST SURGICAL PATHOLOGY REQUEST Surg Path Routine Osteoarthritis of right knee, unspecified osteoarthritis type Release Upon Ordering for 1 Occurrences starting 03/15/2022 [employer] Work Phone: Comment on above: Release Upon Orderin g for 1 Occurrences starting 03/15/2022 X-ray of left knee XR KNEE LEFT 3 VIEWS Imaging Routine History of revision of total replacement of left knee joint 03/20/2020 10:48 AM EDT [facility] XR Knee - left 3 Views XR KNEE L EFT 3 VIEWS Imaging Routine Pain in prosthetic joint, sequela 2022 1:09 PM EDT [employer] [facility] XR Knee - right 3 Views XR KNEE RIGHT 3 VIEWS Imaging Routine Hx of total knee arthroplasty, right 04/08/2022 10:04 AM EDT [employer] [facility] XR Knee - right 3 Views XR KNEE RIGHT 3 VIEWS Imaging Routine Hx of total knee arthroplasty, right 07/08/2022 11:01 AM EDT [employer] [facility] XR Knee - right 3 Views XR KNEE RIGHT 3 VIEWS Imaging Routine Hx of total knee arthroplasty, right 03/16/2023 11:03 AM EDT [employer] [facility] XR Knee - right 4 Views XR KNEE RIGHT 4+ VIEWS Imaging Routine Right knee pain, unspecified chronicity 2022 12:51 PM EDT [employer] [facility] Immunizations Immunization Date Immunization Notes Care Provider Dunia burrell 07-08-2023 influenza virus vaccine, unspecified formulation [facility] 07-08-2023 influenza, high dose seasonal, preservative-free Augustine Metz Other [employer] Other 03-03-2023 zoster vaccine recombinant Augustine Metz Other [facility] 01-01-2023 zoster vaccine recombinant Augustine Metz Other [facility] 06-29-2022 influenza, high dose seasonal, preservative-free Augustine Metz Other [employer] Other 06-29-2022 influenza virus vaccine, split virus (incl. purified surface antigen) Augustine Metz Other [employer] Other 06-29-2022 influenza virus vaccine, unspecified formulation Jose R Dodd DO Work Phone: [facility] 06-22-2022 COVID-19 Pfizer (bivalent) Augustine Metz Other [facility] 07-15-2021 influenza virus vaccine, split virus (incl. purified surface antigen) Augustine Isaías Other [facility] [employer] Other 07-15-2021 influenza virus vaccine, unspecified formulation [facility] 06-22-2021 COVID-19 Vaccine Pfi zer - Documentation Purposes Only Augustine Metz Other [facility] 11-20-2020 COVID-19 Vaccine Pfi zer - Documentation Purposes Only Augustine Isaías Other [facility] 10-30-2020 COVID-19 Vaccine Pfi zer - Documentation Purposes Only Augustine Isaías Other [facility] 07-01-2020 influenza virus vaccine, split virus (incl. purified surface antigen) Augustine Isaías Other [facility] [employer] Other 07-01-2020 influenza virus vaccine, unspecified formulation [facility] 07-06-2019 influenza virus vaccine, split virus (incl. purified surface antigen) Augustine Metz Other [facility] [employer] Other 07-06-2019 influenza virus vaccine, unspecified formulation [facility] 07-12-2018 influenza virus vaccine, split virus (incl. purified surface antigen) Augustine Isaías Other [facility] [employer] Other 07-12-2018 influenza virus vaccine, unspecified formulation [facility] 07-25-2017 influenza virus vaccine, split virus (incl. purified surface antigen) Augustine Metz Other [facility] [employer] Other 07-25-2017 influenza virus vaccine, unspecified formulation [facility] 07-07-2016 influenza virus vaccine, split virus (incl. purified surface antigen) Augustine Metz Other [facility] [employer] Other 07-07-2016 influenza virus vaccine, unspecified formulation [facility] 07-18-2015 pneumococcal conjuga te vaccine, 13 valent Augustine Metz Other [facility] 06-11-2015 influenza virus vaccine, split virus (incl. purified surface antigen) Augustine Metz Other [facility] [employer] Other 06-11-2015 influenza virus vaccine, unspecified formulation [facility] 06-17-2014 tetanus and diphther ia toxoids, adsorbed, preservative free, for adult use (5 Lf of tetanus toxoid and 2 Lf of diphtheria toxoid) Augustine Metz Other [facility] 08-28-2013 pneumococcal polysaccharide vaccine, 23 valent Augustine Metz Other [facility] 07-26-2013 tetanus and diphther ia toxoids, adsorbed, preservative free, for adult use (5 Lf of tetanus toxoid and 2 Lf of diphtheria toxoid) Augustine Metz Other [facility] 07-18-2013 zoster vaccine, live Ramirez Metz Other [facility] 1945 pneumococcal conjuga te vaccine, 7 valent Damari Rojas [facility] Payers Date Payer Category Payer Unknown [employer] [id number] 2017-Present [id number]. [id number] 2010 Medicare MEDICARE MEDICAR E A AND B [id number] 2010-Present [place] [id number]. [id number] 2008 Medicare [id number]. 1.13.172.2.7.3. [id number] 2008 Unknown [id number]. 1.13.172.2.7.3. [id number] 1959 Medicare [id number] 2.16.840.1.325847.19 1959 Unknown [id number] 1946 Unknown [id number] 2.16.840.1.291518.3.579.2.647 1946 Unknown [id number] 2.16.840.1.065184.3.579.2.356 1946 Unknown [id number] 2.16.840.1.474826.3.579.2.356 1946 Unknown [id number] 2.16.840.1.009778.3.579.2.159 1946 Unknown [id number] 2.16.840.1.223405.3.579.2.159 1946 Unknown [id number] 2.16.840.1.874796.3.579.2.159 1946 Unknown [id number] 2.16.840.1.966064.3.579.2.159 1946 Unknown [id number] 2.16.840.1.963557.3.579.2.159 1946 Unknown [id number] 2.16.840.1.781290.3.579.2.593 1946 Unknown [id number] 2.16.840.1.180287.3.579.2.593 1946 Unknown [id number] 2.16.840.1.424119.3.579.2.593 1946 Unknown [id number] 2.16.840.1.450485.3.579.2.593 1946 Unknown [id number] 2.16.840.1.304709.3.579.2.593 1946 Unknown [id number] 2.16.840.1.451171.3.579.2.593 1946 Unknown [id number] 2.16.840.1.251271.3.579.2.593 1946 Unknown [id number] 2.16.840.1.809145.3.579.2.593 1946 Unknown [id number] 2.16.840.1.498355.3.579.2.593 1946 Unknown [id number] 2.16.840.1.540540.3.579.2.593 1946 Unknown [id number] 2.16.840.1.536944.3.579.2.593 1946 Unknown [id number] 2.16.840.1.658593.3.579.2.593 1946 Unknown [id number] 2.16.840.1.160018.3.579.2.593 1946 Unknown [id number] 2.16.840.1.316673.3.579.2.593 1946 Unknown [id number] 2.16.840.1.719612.3.579.2.593 1946 Unknown [id number] 2.16.840.1.381821.3.579.2.593 1946 Unknown [id number] 2.16.840.1.738932.3.579.2.593 1946 Unknown [id number] 2.16.840.1.093598.3.579.2.593 1946 Unknown [id number] 2.16.840.1.654518.3.579.2.593 1946 Unknown [id number] 2.16.840.1.632733.3.579.2.593 1946 Unknown [id number] 2.16.840.1.544114.3.579.2.983 1946 Unknown [id number] 2.16.840.1.060299.3.579.2.983 1946 Unknown [id number] 2.16.840.1.647499.3.579.2.983 1946 Unknown [id number] 2.16.840.1.054908.3.579.2.983 1946 Unknown [id number] 2.16.840.1.153673.3.579.2.983 1946 Unknown [id number] 2.16.840.1.038050.3.579.2.983 1946 Unknown [id number] 2.16.840.1.521278.3.579.2.718 1946 Unknown [id number] 2.16.840.1.791682.3.579.2.1259 1946 Unknown [id number] 2.16.840.1.094575.3.579.2.1259 1946 Unknown [id number] 2.16.840.1.823107.3.579.2.1259 1946 Unknown [id number] 2.16.840.1.823452.3.579.2.1259 1946 Unknown [id number] 2.16.840.1.666258.3.579.2.1259 1946 Unknown [id number] 2.16.840.1.528367.3.579.2.1259 Medicare [id number] Self-pay Self Pay [id number] Unknown [facility] [id number] Social History Date Type Detail Facility Start: 03-20-2020 End: 06-23-2023 Tobacco smoking status [facility] Former smoker [facility] End: 02-08-1983 History of tobacco use Current smoker [facility] Start: 03-20-2020 End: 07-08-2022 Tobacco use and exposure Former user [facility] End: 02-08-2003 History of tobacco use User of smokeless tobacco [facility] Start: 03-20-2020 End: 03-16-2023 Alcohol intake Current non-drinker of alcohol (finding) [facility] Start: 1945 Sex Assigned At Not on file A [facility] [employer] Start: 03-05-2022 End: 03-15-2022 Exposure to SARS-CoV-2 (event) Not sure [facility] Start: 03-16-2023 End: 06-30-2023 Sex Assigned At [facility] [employer] Other Start: 05-03-2022 End: 12-16-2023 Tobacco smoking status Never smoked tobacco (finding) [facility] End: 02-08-1983 History of tobacco use Cigarette Smoker [facility] Start: 09-14-2022 Dept. of D ermatology Start: 1945 Sex Assigned At Male F [facility] Start: 03-16-2023 End: 06-30-2023 History of Social function [facility] Gender identity Identifies as ma le gender (finding) [facility] Start: 08-29-2023 End: 10-28-2023 Alcohol intake Lifetime non-drinker (finding) [facility] Start: 06-23-2023 Alcohol Comment caffeine: soda [facility] Medical Equipment Procedure Code Equipment Code Equipment Origin al Text Equipment Identifier Dates Attune Tibial In sert Fixed Bearing Posterior Stabilized [id number] Start: 03-15-2022 Blood Sugar Diagnostic (Accu-Chek Prachi Plus Test Strp) strip Start: 12-19-2023 Blood Sugar Diagnostic (Accu-Chek Prachi Plus Test Strp) strip Start: 12-16-2023 End: 12-19-2023 Blood Sugar Diagnostic (Accu-Chek Prachi Plus Test Strp) strip Start: 12-16-2023 End: 03-22-2024 Goals Date Patient Goal Desired Activity /State Functional Status Date Assessment Result Facility 05-03-2022 Functional Status N/A [facility] Clinical Notes 11-04-2021 to 02-09-2024 Note Date & Type Note Facility 02-09-2024 Note Patient here for fol low up LAAO and pericardial effusion. Still denies chest pain, SOB, palpitations, and lightheadedness/syncope. Doing very well. Review of Systems Constitutional: Positive for malaise/fatigue. Cardiovascular: Positive for leg swelling (resolves by morning). Hematologic/Lymphatic: Bruises/bleeds easily. Musculoskeletal: Positive for arthritis, back pain and myalgias. All other systems reviewed and are negative. [facility] 02-09-2024 Note Cardiovascular Medic ine [facility] SUBJECTIVE Chief Complaint Patient presents with Atrial Fibrillation S/p LAAO with Amulet device Tito Goncalves is a 79 y.o. male here for follow-up. HPI PMHx of paroxysmal a.fib s/p CV'n 2019, s/p LAAO device with Amulet on 01/24/2024, HTN, mild MR, CUBA Since last seen he underwent implant procedure of the Amulet LAAO device. He developed a pericardial effusion after device placement and underwent pericardialcentesis along with a pericardial drain. Effusion resolved and drain was pulled. He also developed a.fib with RVR post procedure and his propafenone was switched to amiodarone. Since he was discharged, he has been feeling fatigued otherwise no complaints/changes. He does get some leg swelling at the end of the day, resolves by the AM. Denies c/o CP, dyspnea, orthopnea, PND, dizziness/LH, palpitations, syncope. He c/o altered taste since starting amio. Patient Active Problem List Diagnosis Atrial fibrillation [...] skin Glaucoma Glycosuria Left corneal abrasion Proteinuria Paroxysmal atrial fibrillation (CMS/HCC) Pericardial effusion Stage 2 chronic kidney disease Acute cholangitis due to calculus of bile duct with obstruction Age-related nuclear cataract of both eyes Presence of Amulet left atrial appendage closure device Past Medical History: Diagnosis Date Abnormal ECG [...] (Sulfonamide Antibiotics) Rash Review of Systems Constitutional: Positive for malaise/fatigue. Negative for chills, fever and weight gain. Cardiovascular: Positive for leg swelling. Negative for chest pain, dyspnea on exertion, irregular heartbeat, near-syncope, orthopnea, palpitations, paroxysmal nocturnal dyspnea and syncope. Hematologic/Lymphatic: Negative for bleeding problem. Does not bruise/bleed easily. OBJECTIVE Visit Vitals BP 120/62 (BP Location: Left arm, Patient Position: Sitting) Pulse 60 Ht 1.829 m (6') Wt 110 kg (242 lb) SpO2 97% BMI 32.82 kg/m??? Smoking Status Former BSA 2.36 m??? Medications: Current Outpatient Medications: aspirin 81 mg EC tablet, Take 1 [...] 1 mg tablet, , Disp: , Rfl: clopidogrel (Plavix) 75 mg tablet, Take 1 tablet (75 mg) by mouth in the morning for 90 doses. Do not start before January 30, 2024., Disp: 90 tablet, Rfl: 0 omeprazole (PriLOSEC) [address] capsule, Take 1 capsule every day by oral route for 90 days., Disp: , Rfl: traZODone (Desyrel) 50 mg tablet, Take 1 tablet by mouth at bedtime., Disp: , Rfl: amiodarone (Pacerone) 200 mg tablet, Take 1 tablet (200 mg) by mouth in the morning., Disp: 30 tablet, Rfl: 5 Physical Exam Constitutional: Appearance: Normal appearance. HENT: [...] lower leg: Edema present. Left lower leg: Naman (more content not included)... [facility] 01-29-2024 Note Patient discharged w ith family. Patient provided copy of AVS and discharge instructions. All questions and concerns addressed. All belongings with patient [facility] 01-29-2024 Note Hospital Medicine Discharge Summary Final Discharge Diagnosis: Paroxysmal atrial fibrillation (CMS/HCC) Admission Diagnosis: Paroxysmal atrial fibrillation (CMS/HCC) [I48.0] Hospital course: 79-year-old man with history of paroxysmal atrial fibrillation, it started in 2012. He is maintained on warfarin for anticoagulation and propafenone for rhythm control. He has history of hypertension on treatment. He has history of obstructive sleep apnea. He has diabetes and used to be on metformin but currently controlled on diet. In April 2019 he presented to the [facility] with atrial fibrillation with controlled ventricular response. In December 2022 he fell and sustained a subsequent brain bleed. He was placed back on warfarin few weeks later. He then fell again recently and was evaluated in the emergency room because of head trauma and abrasions to the face. He had a shared decision making with Dr Maggy Murphy and both agreed that ARLETTE occlusion is a good alternative to anticoagulation for him. # Cardiac tamponade s/p pericardiocentesis, improved. # Cardiogenic shock due to tamponade, resolved. # Paroxysmal atrial fibrillation s/p left atrial appendage closure: - Cardio switched propafenon to amiodarone. - Not on intermediate accountant AC due to hx of falls and hx of left atrial appendage. Continue aspirin and Plavix. # EDEN, prerenal, improved. # HTN: - Continue Coreg. Amlodipine was d/oralia due to soft BP. Dear Dr. Isaías MD, [place] is advised to follow up with you within 1-2 weeks. Follow-up with: Cardiology Scheduled appointments: Future Appointments Date Time Provider Department Center 02/09/2024 9:40 AM Madison Paul NP [facility] 03/16/2024 10:30 AM [facility] [employer] HOLDING ROOM [facility] Your medication list START taking these medications Instructions Last Dose Given Next Dose Due amiodarone 200 mg tablet Commonly known as: Pacerone Start taking on: January 29, 2024 Take 2 tablets (400 mg) by mouth in the morning and at bedtime for 5 days, THEN 1 tablet (200 mg) in the morning. clopidogrel 75 mg tablet Commonly known as: Plavix Start taking on: January 30, 2024 Take 1 tablet (75 mg) by mouth in the morning for 90 doses. Do not start before January 30, 2024. CONTINUE taking these medications Instructions Last Dose Given Next Dose Due aspirin 81 mg EC tablet atorvastatin 10 mg tablet Commonly known as: Lipitor benazepril 20 mg tablet Commonly known as: Lotensin carvedilol 12.5 mg tablet Commonly known as: Coreg Take 1 tablet (12.5 mg) by mouth with breakfast and with evening meal. clonazePAM 1 mg tablet Commonly known as: KlonoPIN omeprazole [address] capsule Commonly known as: PriLOSEC traZODone 50 mg tablet Commonly known as: Desyrel STOP taking these medications amLODIPine 10 mg tablet Commonly known as: Norvasc propafenone 150 mg tablet Commonly known as: Rythmol Where to Get Your Medications These medications were sent to [facility] - [place], [place] - [address], [facility] [address] amiodarone 200 mg tablet clopidogrel 75 mg tablet Tito is allergic to iodine, penicillins, shellfish containing products, and sulfa (sulfonamide antibiotics). Disposition: Home-Health Care [facility] (06) Discharge Condition: Stable Code Status: Full Code Diagnostic Results Hematology: Results from last 7 days Lab Units 01/29/24 0603 01/28/24 0525 01/26/24 0333 01/25/24 0456 01/25/24 0438 01/24/24 1056 WBC AUTO 10*3/uL 6.43 6.52 < > -- < > -- HEMOGLOBIN g/dL 10.0* 10.3* < > -- < > -- HEMATOCRIT % 30.5* 31.4* < > -- < > -- MCV fL 88.7 88.5 < > -- < > -- PLATELETS AUTO 10*3/uL 151 134* < > -- < > -- PROTIME -- -- -- -- -- n/a INR -- -- -- 1.24* -- -- PINR -- -- -- -- -- 1.1 < > = values in this interval not displayed. Chemistry: Results from last 7 days Lab Units 01/29/24 0601/28/24 0525 01/27/24 0550 SODIUM mmol/L 140 138 137 POTASSIUM mmol/L 3.6 3.3* 3.6 CHLORIDE mmol/L 109* 108* 108* CO2 mmol/L 24 21 22 BUN mg/dL 22 27* 30* CREATININE mg/dL 1.17 1.16 1.31* GLUCOSE mg/dL 125* 143* 154* MAGNESIUM mg/dL -- 1.8* 2.0 CALCIUM mg/dL 8.0* 7.7* 7.9* PHOSPHORUS mg/dL -- 2.5 2.2* No lab exists for component: AFIO2 , APHT , APCOT , APOT , ATCO2 , CK , ALB , IBILI Test Results Pending At Discharge: Pending Labs Order Current Status Hemoglobin A1c In process Blood culture, peripheral #1 Preliminary result Blood culture, peripheral #2 Preliminary result Diet at the time of discharge: cardiac diet Nutrition Screen Activity: Normal activity as tolerated Objective Blood pressure 115/72, pulse 61, temperature 36.8 ???C (98.2 ???F), temperature source Temporal, resp. rate 14, height 1.829 m (6'), weight 111 kg (245 lb 6.4 oz), SpO2 96 %. General: Alert and oriented x3. Cardiology: (more content not included)... [facility] 01-29-2024 Note Cardiology Progress Note Subjective Subjective: No acute events overnight no new complaint the patient was sitting in chair feeling well, chest tube had less than 20 mL since Tuesday morning. Objective Objective: Patient Vitals for the past 24 hrs: BP Temp Temp src Pulse Resp SpO2 Weight 01/29/24 0912 124/74 -- -- -- -- -- -- 01/29/24 0503 -- -- -- -- -- -- 111 kg (245 lb 6.4 oz) 01/29/24 0345 144/71 -- -- 69 14 -- -- 01/28/24 2345 113/68 37.2 ???C (98.9 ???F) Temporal 60 16 95 % -- 01/28/242008 -- -- -- -- -- 94 % -- Physical Examination: GENERAL: AOx3, in no acute distress. HEAD: Atraumatic, normocephalic. EYES: ARIK, EOMI. NECK: No JVD present. CARDIAC: RRR. No murmur, rubs, or gallops. RESPIRATORY: CTAB, no increased effort of breathing. ABDOMEN: Soft, nontender, nondistended. EXTREMITIES: No lower extremity edema, peripheral pulses are 2+ bilaterally. NEURO: No focal deficits Relevant Lab Results Encounter Date: 01/24/24 ECG 12 lead Result Value Ventricular Rate 124 QRS DURATION 86 QT Interval 316 QTC CALCULATION(BAZETT) 453 R-[place] 8 T Wave [place] 100 Impression Atrial fibrillation with rapid ventricular response Nonspecific ST and T wave abnormality Abnormal ECG When compared with ECG of 25-JAN-2024 04:26, Atrial fibrillation has replaced Sinus rhythm Nonspecific ST-t wave abnormalities are now Present Vent. rate has increased BY 72 BPM Confirmed by Chitra CROCKETT, L.S. (2) on 01/26/2024 3:07:09 PM Lab Results Component Value Date TROPONINI 0.84 (HH) 01/25/2024 Transthoracic echo (TTE) limited Result Date: 01/27/2024 1 1 [facility] Heart Station [address] [place] [address] [phone] (fax) Echocardiogram-[facility] Name: TITO GONCALVES Study Date: 01/27/2024 08:18 AM B/P: 147 mmHg/62 mmHg HR: 67 bpm Date of : 1945 Location: [facility] Height: 72 in. Age: 79 year(s) Patient Room: [facility] Weight: 244 lb. Gender: Male Patient Status: InPt BSA: 2.32 m2 Indication: Pericardial Effusion, s/p 28mm Aplatzer Amulet, s/p pericardiocentesis w/drain Examination: Limited Echo Image Quality: Fair Patient Consent: Procedure explained to patient Conclusions Left Ventricle: The left ventricle is normal size. Global left ventricular systolic function is normal. Right Ventricle: The right ventricle is normal in size. Right ventricular systolic function appears normal. Left Atrium: The left atrium appears enlarged. Pericardium: Minimal pericardial effusion with fibrinous material noted. Findings Left Ventricle: The left ventricle is normal size. Global left ventricular systolic function is normal. Right Ventricle: The right ventricle is normal in size. Right ventricular systolic function appears normal. Left Atrium: The left atrium appears enlarged. Right Atrium: The right atrium is normal in size. Mitral Valve: The mitral valve is normal in mobility and thickness. Aortic Valve: The aortic valve is normal. Tricuspid Valve: Normal tricuspid valve. Pulmonic Valve: Pulmonic valve is poorly visualized. Great Vessels: IVC: The IVC is normal in size. Respiratory inspiration greater than 50%. Pericardium: Minimal pericardial effusion with fibrinous material noted. Procedure Staff Reading Group: [facility] Head Animal Keeper: MARLEY Donohue, RDCS Ordering Physician: LIONEL MENA Transthoracic echo (TTE) limited Result Date: 01/26/2024 1 1 [facility] Heart Station [address] [place] [address] [phone] (fax) Echocardiogram-[facility] Name: TITO GONCALVES Study Date: 01/26/2024 07:59 AM B/P: 129 mmHg/74 mmHg HR: Date of : 1945 Location: [facility] Height: 72 in. Age: 79 year(s) Patient Room: 3221 Weight: 242 lb. Gender: Male Patient Status: InPt BSA: 2.31 m2 Indication: Pericardial Effusion, S/P Pericardiocentesis with drain, S/P LAAO Procedure, 28 mm Amplatzer Amulet Examination: Limited Echo Image Quality: Fair Patient Consent: Procedure explained to patient Conclusions Left Ventricle: The left ventricle appears normal in size. Global left ventricular systolic function is normal. Left ventricular wall thickness is normal. No regional wall motion abnormality. Right Ventricle: The right ventricle appears normal in size. Right ventricular systolic function appears normal. Left Atrium: The left atrium appears enlarged. Pericardium: There is a minimal pericardial effusion. Findings Left Ventricle: The left ventricle appears normal in size. Global left ventricular systolic function is normal. Left ventricular wall thickness is normal. No regional wall motion abnormality. Right Ventricle: The right ventricle appears normal in size. Right ventricular systolic function appears normal. Left Atrium: The left atrium appears e (more content not included)... [facility] 01-28-2024 Note Cardiology Progress Note Subjective Subjective: No acute events overnight no new complaint the patient was sitting in chair feeling well, chest tube had less than 20 mL since Tuesday morning. Objective Objective: Patient Vitals for the past 24 hrs: BP Temp Temp src Pulse Resp SpO2 Weight 01/28/24 0800 124/65 -- -- 64 19 92 % -- 01/28/24 0507 -- -- -- -- -- -- 112 kg (247 lb 9.6 oz) 01/28/24 0400 117/65 -- -- 81 -- -- -- 01/28/24 0000 (!) 105/48 -- -- 69 -- -- -- 01/27/242014 (!) 119/95 36.5 ???C (97.7 ???F) Temporal 103 -- 97 % -- 01/27/24 1610 118/66 36.5 ???C (97.7 ???F) Temporal 73 -- 97 % -- Physical Examination: GENERAL: AOx3, in no acute distress. HEAD: Atraumatic, normocephalic. EYES: ARIK, EOMI. NECK: No JVD present. CARDIAC: RRR. No murmur, rubs, or gallops. RESPIRATORY: CTAB, no increased effort of breathing. ABDOMEN: Soft, nontender, nondistended. EXTREMITIES: No lower extremity edema, peripheral pulses are 2+ bilaterally. NEURO: No focal deficits Relevant Lab Results Encounter Date: 01/24/24 ECG 12 lead Result Value Ventricular Rate 124 QRS DURATION 86 QT Interval 316 QTC CALCULATION(BAZETT) 453 R-[place] 8 T Wave [place] 100 Impression Atrial fibrillation with rapid ventricular response Nonspecific ST and T wave abnormality Abnormal ECG When compared with ECG of 25-JAN-2024 04:26, Atrial fibrillation has replaced Sinus rhythm Nonspecific ST-t wave abnormalities are now Present Vent. rate has increased BY 72 BPM Confirmed by Chitra CROCKETT, L.S. (2) on 01/26/2024 3:07:09 PM Lab Results Component Value Date TROPONINI 0.84 (HH) 01/25/2024 Transthoracic echo (TTE) limited Result Date: 01/27/2024 1 1 [facility] Heart Station [address] [place] [address] [phone] (fax) Echocardiogram-[facility] Name: TITO GONCALVES Study Date: 01/27/2024 08:18 AM B/P: 147 mmHg/62 mmHg HR: 67 bpm Date of : 1945 Location: [facility] Height: 72 in. Age: 79 year(s) Patient Room: 3167 Weight: 244 lb. Gender: Male Patient Status: InPt BSA: 2.32 m2 Indication: Pericardial Effusion, s/p 28mm Aplatzer Amulet, s/p pericardiocentesis w/drain Examination: Limited Echo Image Quality: Fair Patient Consent: Procedure explained to patient Conclusions Left Ventricle: The left ventricle is normal size. Global left ventricular systolic function is normal. Right Ventricle: The right ventricle is normal in size. Right ventricular systolic function appears normal. Left Atrium: The left atrium appears enlarged. Pericardium: Minimal pericardial effusion with fibrinous material noted. Findings Left Ventricle: The left ventricle is normal size. Global left ventricular systolic function is normal. Right Ventricle: The right ventricle is normal in size. Right ventricular systolic function appears normal. Left Atrium: The left atrium appears enlarged. Right Atrium: The right atrium is normal in size. Mitral Valve: The mitral valve is normal in mobility and thickness. Aortic Valve: The aortic valve is normal. Tricuspid Valve: Normal tricuspid valve. Pulmonic Valve: Pulmonic valve is poorly visualized. Great Vessels: IVC: The IVC is normal in size. Respiratory inspiration greater than 50%. Pericardium: Minimal pericardial effusion with fibrinous material noted. Procedure Staff Reading Group: [facility] Head Animal Keeper: MARLEY Donohue, RDCS Ordering Physician: LIONEL MENA Transthoracic echo (TTE) limited Result Date: 01/26/2024 1 1 [facility] Heart Station [address] [place] [address] [phone] (fax) Echocardiogram-[facility] Name: TITO GONCALVES Study Date: 01/26/2024 07:59 AM B/P: 129 mmHg/74 mmHg HR: Date of : 1945 Location: [facility] Height: 72 in. Age: 79 year(s) Patient Room: 3221 Weight: 242 lb. Gender: Male Patient Status: InPt BSA: 2.31 m2 Indication: Pericardial Effusion, S/P Pericardiocentesis with drain, S/P LAAO Procedure, 28 mm Amplatzer Amulet Examination: Limited Echo Image Quality: Fair Patient Consent: Procedure explained to patient Conclusions Left Ventricle: The left ventricle appears normal in size. Global left ventricular systolic function is normal. Left ventricular wall thickness is normal. No regional wall motion abnormality. Right Ventricle: The right ventricle appears normal in size. Right ventricular systolic function appears normal. Left Atrium: The left atrium appears enlarged. Pericardium: There is a minimal pericardial effusion. Findings Left Ventricle: The left ventricle appears normal in size. Global left ventricular systolic function is normal. Left ventricular wall thickness is normal. No regional wall motion abnormality. Right Ventricle: The right ventricle appears normal in size. Right ventr (more content not included)... [facility] 01-28-2024 Note Physical Therapy Physical Therapy Evaluation & Treatment Patient Name: Tito Goncalves : 1945 Today's Date: 01/28/2024 Time in: 1:53 pm Time out: 2:20 pm Total time: 27 minutes 01/28/24 1422 PT Last Visit PT Received On 01/28/24 General Subjective Both RN and pt agreeable to PT this afternoon. Pt denies pain and asleep upon scientific writer entering room however easily awakens. Cognition Overall Cognitive Status WFL Arousal/Alertness Appropriate responses to stimuli Orientation Level Oriented X4 Following Commands Follows all commands and directions without difficulty Communication Intact Cognition Comments pt had difficulty navigating back to correct room after first bout of ambulation however after 2nd bout able to navigate back to room without external cues from scientific writer. Therapeutic Exercise Therapeutic Exercise Time Entry 10 Therapeutic Exercise Activity 1 SLR, heel slides, marches, bridges, & hooklying knee extension all 1x10 reps each. VC's and visual targets to increase amplitude. Therapeutic Activity Therapeutic Activity Time Entry 17 Ambulation Ambulation Yes Ambulation 1 Surface 1 Level tile Device 1 No device (IV pole initially and transitioned to no device) Assistance 1 Close supervision Quality of Gait 1 B toe out and lateral sway with increased fatigue. Comments/Distance (ft) 1 ~200 ft first bout and ~40 ft second and third bout. Stairs Stairs Yes Stairs Rails 1 Left;None (Comment) (2 steps up/down L rail and 2 step up/down without rail to simulate home set up.) Assistance 1 Contact guard Quality of Stairs 1 Pt completed with good balance when using rail and minor sway noted visually during step ups without UE support however no LOB Comment/Number of Steps 1 4 steps (2 with L rail, 2 without rail) Bed Mobility 1 Bed Mobility From 1 Supine Bed Mobility Type 1 To and from Bed Mobility to 1 Short sit Level of Assistance 1 Independent Bed Mobility Comments 1 HOB flat Transfer 1 Transfer From 1 Sit Transfer Type 1 To and from Transfer to 1 Stand Technique 1 Sit to stand;Stand to sit Transfer Device 1 none Transfer Level of Assistance 1 Distant supervision Trials/Comments 1 from EOB completed x2 reps Other Activity Other Activity 1 Pt supine in bed at EOS with call light and tray table within reach. PT Assessment PT Assessment/DRAFTER GEOPHYSICAL Summary Pt continues to progress towards goals however limited endurance of <30 minute treatment and unable to perform balance exercises this visit due to this. Will continue to benefit from skilled PT services to improve balance and activity tolerance in preparation for d/c. Plan Level of assist 1 assist PT Discharge Recommendations Home PT Goals Multi-Disciplinary Problems (from Physical Therapy) Active Problems Problem: PT Misc Start Date: 01/27/24 Goal Start Date Expected End Date End Date Pt will progress dynamic standing balance interventions to facilitate safe return to previous level of function 01/27/24 02/10/24 -- Goal Start Date Expected End Date End Date pt will complete sit to stand transfers from multiple surfaces independently with device as appropriate 01/27/24 02/10/24 -- Goal Start Date Expected End Date End Date pt will complete all transfers independently with device as appropriate 01/27/24 02/10/24 -- Goal Start Date Expected End Date End Date pt will ambulate 200 ft independently with no LOB using device as appropriate 01/27/24 02/10/24 -- Goal Start Date Expected End Date End Date pt will ascend/descend 4 stairs for improvement in functional mobility and independence 01/27/24 02/10/24 -- Goal Start Date Expected End Date End Date pt will complete BLE strengthening interventions to improve functional mobility 01/27/24 02/10/24 -- Goal Start Date Expected End Date End Date pt to demonstrate activity tolerance to participate in 30 minute PT session including transfers, ambulation, and dynamic exercise with stable vital signs throughout session 01/27/24 02/10/24 -- [facility] 01-28-2024 Note Hospital Medicine Daily Progress Note - 01/28/2024 11:20 AM; Room: [address] [place] [address] Admission: 01/24/2024 10:46 AM; Length of stay: 4 days THE HOSPITALIST TEAM PREFERS TO USE [employer] CHAT FOR COMMUNICATION 7AM-7PM. IF I DO NOT RESPOND WITHIN 15 MINUTES, PLEASE PAGE ME/CALL THROUGH THE ENTRY LEVEL. FROM 7PM-7AM, PLEASE PAGE [phone](COVR) Code Status: Full Code Barriers to Discharge: amio gtt, pericardial drain Expected Discharge Date: 1-2 days Discharge Destination: home Overview Patient is seen for evaluation and management of paroxysmal afib, pericardial effusion. Mr. Goncalves is a 79-year-old male w/medical history significant for paroxysmal atrial fibrillation on warfarin, hypertension, type II diabetes mellitus, and CUBA who was admitted for elective left atrial appendage closure on 01/24/24. Procedure was performed without complication and patient was admitted to the [facility] for over night monitoring to be continued on ASA, plavix, and warfarin. Subjective Patient assessed in the chair. He denies any chest pain or shortness of breath. He had small run of afib last night but converted spontaneously while on the continuous amio gtt. Physical Exam Visit Vitals BP 124/65 Pulse 64 Temp 36.5 ???C (97.7 ???F) (Temporal) Resp 19 Intake/Output Summary (Last 24 hours) at 01/28/2024 1120 Last data filed at 01/28/2024 1036 Gross per 24 hour Intake 1256.47 ml Output 16 ml Net 1240.47 ml Physical Exam Vitals reviewed. Constitutional: General: He is awake. He is not in acute distress. Appearance: Normal appearance. He is not ill-appearing. Cardiovascular: Rate and Rhythm: Normal rate and regular rhythm. Heart sounds: Normal heart sounds. Pulmonary: Effort: Pulmonary effort is normal. No tachypnea, accessory muscle usage or respiratory distress. Breath sounds: Normal breath sounds. Abdominal: General: Abdomen is protuberant. Bowel sounds are normal. There is no distension. Palpations: Abdomen is soft. Tenderness: There is no abdominal tenderness. Musculoskeletal: Right lower leg: No edema. Left lower leg: No edema. Skin: General: Skin is warm and dry. Neurological: Mental Status: He is alert and oriented to person, place, and time. Mental status is at baseline. Psychiatric: Attention and Perception: Attention normal. Mood and Affect: Mood normal. Speech: Speech normal. Behavior: Behavior is cooperative. Estimated body mass index is 33.58 kg/m??? as calculated from the following: Height as of this encounter: 1.829 m (6'). Weight as of this encounter: 112 kg (247 lb 9.6 oz). Active Inpatient Problems Principal Problem: Paroxysmal atrial fibrillation (CMS/HCC) Active Problems: Pericardial effusion Assessment and Plan Paroxysmal Atrial Fibrillation s/p LAAC procedure 01/24/24, currently NSR Cardiology team following Continue amiodarone gtt Continuous telemetry monitoring Cardiac tamponade s/p pericardiocentesis with pericardial shunt placement Document drain output Cardiology to possibly dc drain today Per nursing only 16mL out over the last 24 hours Asa and plavix on hold per cardiology team Hypomagnesemia Hypokalemia 2 gm mag replaced 40 mEq potassium replaced Essential Hypertension, controlled Since he was hypotensive, slowly adding back blood pressure medications as able; lisonopril and coreg - defer to cardiology team DM2, without long-term use of insulin He does not appear to be on any medication for his diabetes, last A1c noted to be 7.2 in 2021, will repeat Diabetic cardiac male diet SSI ACHS EDEN on CKD2, resolved Continue to monitor kidney function with daily BMP Mixed Hyperlipidemia Continue lipitor Vitals every 4 hours Ambulate as tolerated Strict intake and output Daily BMP and CBC to evaluate kidney function, electrolytes, hgb and wbc Case to be discussed with Dr. Navarro Wounds: Wound 01/25/24 Incision Leg Anterior;Proximal;Right;Upper (Active) Date First Assessed/Time First Assessed: 01/25/24 0749 Hand Hygiene Completed: Yes Primary Wound Type: Incision Location: Leg Wound Location Orientation: Anterior;Proximal;Right;Upper Wound Description (Comments): cath site Assessments 01/25/2024 4:00 PM 01/28/2024 8:00 AM Site Assessment Clean Intact;Dry (soft. No swelling, no hematoma) Nutrition Screen: VTE Prophylaxis: Contraindicated due to intracranial bleed hx Scheduled Meds [Held by provider] amLODIPine, 10 mg, oral, Daily [Held by provider] aspirin, 81 mg, oral, q AM atorvastatin, 10 mg, oral, q PM [Held by provider] carvedilol, 12.5 mg, oral, BID with meals cetirizine, 10 mg, oral, Daily clonazePAM, 1 mg, oral, Daily [Held by provider] clopidogrel, 75 mg, oral, Daily fluticasone, 2 spray, Each Nostril, Daily insulin lispro, 0-20 Units, subcutaneous, Before meals & nightly [Held by provider] lisinopril, 10 mg, oral, Daily magnesium oxide, 400 mg, oral, q8h pantoprazole, 40 mg, oral, Daily (more content not included)... [facility] 01-27-2024 Note ---- Attestation signed by Srinath Joseph MD at 01/27/2024 1:31 PM As the teaching physician, I have personally performed or re-performed the history of present illness, physical exam and medical decision making activities of the encounter and verified the medical student's documentation. I made pertinent changes as necessary to ensure accurate documentation. Discussed with the medical student, agree with above. Patient seen and evaluated, daughter at the bedside. Patient reporting no new symptoms, he does have history of atrial fibrillation on Coumadin in the past. He does have history of intracranial bleed a year ago due to fall. He was admitted with cardiology to have elective Left atrial appendage closure, postoperatively the patient was found to be hypotensive on the floor and was monitored in the ICU. patient was found to have pericardial effusion status post pericardial drain placement. Patient was transferred to hospitalist service on January 27, 2024. Patient is reporting no new symptoms, no headache, no chest pain, no shortness of breath, no nausea or vomiting. Physical exam: Elderly male, nontoxic appearance. Lungs: Clear to auscultation with no added sounds. A/P: # Pericardial effusion status post pericardial drain placement. Monitoring output from the drain. Antiplatelets on hold as per cardiology. Continue monitoring on telemetry. # Paroxysmal atrial fibrillation. Anticoagulation on hold due to the hemorrhagic pericardial effusion. Awaiting further recommendations from cardiology. Currently on IV amiodarone, converted back to normal sinus rhythm. ---- Hospital Medicine Daily Progress Note - 01/27/2024 12:46 PM; Room: 3167/3167-01 Admission: 01/24/2024 10:46 AM; Length of stay: 3 days THE HOSPITALIST TEAM PREFERS TO USE [facility] FOR COMMUNICATION 7AM-7PM. IF I DO NOT RESPOND WITHIN 15 MINUTES, PLEASE PAGE ME/CALL THROUGH THE ENTRY LEVEL. FROM 7PM-7AM, PLEASE PAGE [phone](COVR) Code Status: Full Code Barriers to Discharge: Cardiology recommendations Expected Discharge Date: 1-2 days Discharge Destination: home Overview Patient is seen for evaluation and management of paroxsymal A-fib and pericardial effusion s/p pericardiocentesis and shunt placement on 01/25/24 following left atrial appendage closure on 01/24/24. Subjective Tito Goncalves is a 79 y.o. male seen and evaluated at bedside. He reports feeling better. He denies shortness of breath, chest pain or palpitations. He endorses back pain, which he attributes to the bed as he finds it difficult to be comfortable. Tito was accompanied by his daughter, Amna. Physical Exam Visit Vitals BP 117/62 Pulse 65 Temp 36.4 ???C (97.5 ???F) (Temporal) Resp 17 Intake/Output Summary (Last 24 hours) at 01/27/2024 1246 Last data filed at 01/27/2024 1117 Gross per 24 hour Intake 1202.72 ml Output 164 ml Net 1038.72 ml Physical Exam Vitals reviewed. Constitutional: General: NAD. Sitting in chair. Eyes: Pupils are equal, round and reactive to light. Cardiovascular: Regular rate and regular rhythm. Pericardial drain in place. Pulmonary: Effort: Pulmonary effort is normal. Lungs are clear to auscultation bilaterally. Skin: General: Skin is warm and dry. Extremities: No lower extremity edema. Right groin access site without hematoma. Neurological: Mental Status: He is alert and oriented to person, place, and time. Psychiatric: Mood and Affect: Mood normal. Estimated body mass index is 33.2 kg/m??? as calculated from the following: Height as of this encounter: 1.829 m (6'). Weight as of this encounter: 111 kg (244 lb 12.8 oz). Active Inpatient Problems Principal Problem: Paroxysmal atrial fibrillation (CMS/HCC) Active Problems: Pericardial effusion Assessment and Plan Pericardial Effusion -status post pericardiocentesis with pericardial shunt placement on 01/25/24. -off of Levophed. -Plavix and aspirin on hold due to pericardial effusion. Awaiting clearance by Cardiology. Paroxysmal A-fib -status post left atrial appendage closure on 01/24/24. -IV amiodarone 1 mg/min. VTE Prophylaxis: Contraindicated due to intracranial bleed in December 2022 Scheduled Meds [Held by provider] amLODIPine, 10 mg, oral, Daily [Held by provider] aspirin, 81 mg, oral, q AM atorvastatin, 10 mg, oral, q PM [Held by provider] carvedilol, 12.5 mg, oral, BID with meals cetirizine, 10 mg, oral, Daily clonazePAM, 1 mg, oral, Daily [Held by provider] clopidogrel, 75 mg, oral, Daily fluticasone, 2 spray, Each Nostril, Daily insulin lispro, 0-20 Units, subcutaneous, Before meals & nightly [Held by provider] lisinopril, 10 mg, oral, Daily pantoprazole, 40 mg, oral, Daily [Held by provider] propafenone, 150 mg, oral, TID traZODone, 50 mg, oral, Nightly ami (more content not included)... [facility] 01-27-2024 Note [facility] CARDIOLOGY INPAT IENT PROGRESS NOTE Reason for follow up: PAF s/p LAAO, Pericardial effusion w/tamponade s/p drain Subjective Awake, alert, up in chair, daughter at bedside. Walked 40 feet x2 with PT. Denies SOB, CPOE, dizziness, LE edema. Pericardial drain in place, being drained with syringe per orders. Tele: SR overnight since approx 1900 after converting from afib ALLERGIES Allergies Allergen Reactions Iodine Anaphylaxis Penicillins Hives Shellfish Containing Products Other Sulfa (Sulfonamide Antibiotics) Rash CURRENT MEDS [Held by provider] amLODIPine, 10 mg, oral, Daily [Held by provider] aspirin, 81 mg, oral, q AM atorvastatin, 10 mg, oral, q PM [Held by provider] carvedilol, 12.5 mg, oral, BID with meals cetirizine, 10 mg, oral, Daily clonazePAM, 1 mg, oral, Daily [Held by provider] clopidogrel, 75 mg, oral, Daily fluticasone, 2 spray, Each Nostril, Daily insulin lispro, 0-20 Units, subcutaneous, Before meals & nightly [Held by provider] lisinopril, 10 mg, oral, Daily pantoprazole, 40 mg, oral, Daily [Held by provider] propafenone, 150 mg, oral, TID traZODone, 50 mg, oral, Nightly amiodarone, 1 mg/min, Last Rate: 1 mg/min (01/27/24 0552) PRN medications: benzonatate, glucose OR dextrose 50 % in water (D50W), nitroglycerin, ondansetron ODT OR ondansetron Objective Patient Vitals for the past 24 hrs: BP Temp Temp src Pulse Resp SpO2 Weight 01/27/24 0800 117/62 36.4 ???C (97.5 ???F) Temporal 65 17 93 % -- 01/27/24 0420 107/59 -- -- 70 11 94 % 111 kg (244 lb 12.8 oz) 01/26/242049 99/62 36.7 ???C (98.1 ???F) Temporal 82 22 92 % -- 01/26/240 -- -- -- -- -- 94 % -- 01/26/241934 -- -- -- 84 19 93 % -- 01/26/241929 -- -- -- (!) 128 23 93 % -- 01/26/24 1800 108/61 -- -- (!) 130 (!) 32 -- -- 01/26/24 1625 118/76 -- -- (!) 136 20 -- -- 01/26/24 1453 -- -- -- (!) 130 -- -- -- 01/26/24 1430 123/72 36.8 ???C (98.3 ???F) -- 108 19 90 % -- 01/26/24 1200 137/69 -- -- 91 21 93 % -- 01/26/24 1100 112/67 -- -- 95 24 93 % -- 01/26/24 1000 135/74 -- -- 80 21 95 % -- BP 117/62 Pulse 65 Temp 36.4 ???C (97.5 ???F) (Temporal) Resp 17 Ht 1.829 m (6') Wt 111 kg (244 lb 12.8 oz) SpO2 93% BMI 33.20 kg/m??? Wt Readings from Last 3 Encounters: 01/27/24 111 kg (244 lb 12.8 oz) 10/24/23 112 kg (248 lb) 09/06/23 112 kg (246 lb) General: Awake, alert, appropriate mood / affect, NAD Eyes: anicteric sclera. Non-injected conjunctiva. No xanthelasmas Neck: No elevated JVP. No carotid bruit Pulm: Breath sounds clear to ascultation bilaterally with no wheeze, crackles or rhonchi Cards: HRRR , NL S1, S2. No S3 or S4 gallop. Murmur: none CHEST: pericardial drain with clear red fluid, no clots, or erythema Abd: Soft, Nontender, physiologic bowel sounds are present Extr: Lower extremity edema: none. DP pulses present bilaterally Skin: warm, dry, well perfused Neuro: A&Ox3, No gross deficits Lab Results Component Value Date NA 137 01/27/2024 K 3.6 01/27/2024 CL 108 (H) 01/27/2024 ANIONGAP 11 01/27/2024 BUN 30 (H) 01/27/2024 CREATININE 1.31 (H) 01/27/2024 CALCIUM 7.9 (L) 01/27/2024 MG 2.0 01/27/2024 PHOS 2.2 (L) 01/27/2024 No results found for: BILITOT , BILIDIR , ALKPHOS , AST , ALT , PROT , ALBUMIN No results found for: CHOLESTEROL , CHOLESTEROL TOTAL , TRIGLYCERIDES , HDL , LDL CHOLESTEROL , LDL DIRECT , LDL CALC No results found for: BNP No results found for: THYROID , TSH , FREE T4 No results found for: DIGOXIN LVL No results found for: HGBA1C No results found for: BNP Lab Results Component Value Date WBC 8.70 01/27/2024 RBC 3.48 (L) 01/27/2024 HGB 10.1 (L) 01/27/2024 HCT 31.4 (L) 01/27/2024 MCV 90.2 01/27/2024 MCH 29.0 01/27/2024 MCHC 32.2 01/27/2024 RDW 14.5 01/27/2024 PLT 134 (L) 01/27/2024 No X-ray results found for the past 24 hours CV Testing: Encounter Date: 01/24/24 ECG 12 lead Result Value Ventricular Rate 124 QRS DURATION 86 QT Interval 316 QTC CALCULATION(BAZETT) 453 R-[place] 8 T Wave [place] 100 Impression Atrial fibrillation with rapid ventricular response Nonspecific ST and T wave abnormality Abnormal ECG When compared with ECG of 25-JAN-2024 04:26, Atrial fibrillation has replaced Sinus rhythm Nonspecific ST-t wave abnormalities are now Present Vent. rate has increased BY 72 BPM Confirmed by Chitra CROCKETT, L.S. (2) on 01/26/2024 3:07:09 PM 01/27/24 Ltd TTE Left Ventricle: The left ventricle is normal size. Global left ventricular systolic function is normal. Right Ventricle: The right ventricle is normal in size. Right ventricular systolic function appears normal. Left Atrium: The left atrium appears enlarged. Pericardium: Minimal pericardial effusion with fibrinous material noted. 01/26/24 TTE: Left Ventricle: The left ventricle appears normal in size. Global left ventricular systolic function is normal. (more content not included)... [facility] 01-27-2024 Note ---- Attestation signed by Jay Benitez PT at 01/27/2024 11:18 AM This scientific writer (PT) provided one-on-one supervision, direction of patient care/therapeutic interventions, and reviewed documentation. ---- Physical Therapy Physical Therapy Evaluation Patient Name: Tito Goncalves : 1945 Today's Date: 01/27/2024 Pt is 79 yo male presenting p/d left atrial appendage closure on 01/24/24 d/t paroxysmal A-fib. Pt had a fall overnight on 01/25/24, presumably from hypotension (SBP 60-70s). Pt brought to MICU for vasopressors. ECHO showed pericardial effusion, pt went to medical lab scientist for pericardiocentesis and currently has a pericardial drain. Discharge: home General Family/Caregiver Present: Yes (daughter) Subjective: RN approved PT eval and OOB activity. Pt supine in bed, agreeable to PT session. Upon completion, pt seated in chair, daughter present, call light given. PT Diagnosis: impaired functional mobility Patient Active Problem List Diagnosis Atrial fibrillation [...] skin Glaucoma Glycosuria Left corneal abrasion Proteinuria Paroxysmal atrial fibrillation (CMS/HCC) Pericardial effusion Past Medical History: Diagnosis Date Abnormal ECG Arrhythmia Atrial fibrillation (CMS/HCC) Heart valve disease Hypertension Sleep apnea Past Surgical History: Procedure Laterality Date CARDIOVERSION CHOLECYSTECTOMY KNEE SURGERY REPLACEMENT TOTAL KNEE ONCOLOGIC Precautions Precautions Medical Precautions: drain, IV, telemetry Pain Pain Assessment Pain Assessment: No/denies pain Pain Score: 0 - No pain Cognition Cognition Overall Cognitive Status: Within Functional Limits Arousal/Alertness: Appropriate responses to stimuli Orientation Level: Oriented X4 Following Commands: Follows all commands and directions without difficulty Deficits: Decreased awareness of deficits Attention Span: Appears intact Memory: Appears intact Communication: Intact General Assessment General Assessment Hearing: wfl Hand Dominance: Right Home Living Home Living Type of Home: House Lives With: Alone Home Adaptive Equipment: Walker rolling, Cane (bed with adjustable head/feet) Home Layout: One level Home Access: Stairs to enter without rails Entrance Stairs-Number of Steps: 4 Bathroom Shower/Tub: Walk-in shower Bathroom Toilet: (raised toilet seat) Prior Level of Function Prior Function Level of [place]: Independent with ADLs and functional transfers, Independent with homemaking with ambulation (drives) Prior Functional Mobility: Independent without device Receives Help From: (neighbors are willing to help as needed, daughter lives ~45 minutes away) ADL Assistance: Independent Homemaking Assistance: Independent Vision Basic Assessment Vision - Basic Assessment Current Vision: Wears glasses all the time Activity Tolerance Activity Tolerance Ambulation comments: amb in hallway with and without RW, SBA Endurance: Stage III Activity Tolerance Comments: pt tolerated activity with no increase in symptoms or changes in vital signs General Assessments Activity Tolerance Ambulation comments: amb in hallway with and without RW, SBA Endurance: Stage III Activity Tolerance Comments: pt tolerated activity with no increase in symptoms or changes in vital signs Sensation Light Touch: No apparent deficits Coordination Movements are Fluid and Coordinated: Yes Postural Control Postural Control: Within Functional Limits Static Sitting Balance Static Sitting-Balance Support: Right upper extremity supported, Left upper extremity supported, Feet supported Static Sitting-Level of Assistance: Independent Dynamic Sitting Balance Dynamic Sitting-Balance Support: Right upper extremity supported, Left upper extremity supported Dynamic Sitting-Balance: Forward lean, Lateral lean Dynamic Sitting Balance-Level of Assistance: Close supervision Static Standing Balance Static Standing-Balance Support: Right upper extremity supported, Left upper extremity supported, With device, No upper extremity (more content not included)... [facility] 01-27-2024 Note Occupational Therapy Occupational Therapy Evaluation Patient Name: Tito Goncalves : 1945 Today's Date: 01/27/2024 Time In: 909 Time Out: 923 patient is a 79-year-old gentleman who is status post left atrial appendage closure on 01/06 due to paroxysmal A-fib. patient was brought to ICU for monitoring. He started to become hypotensive, stat echo showed concerns for pericardial effusion leading to tamponade physiology. Patient was on Levophed briefly. patient had pericardiocentesis on 01/25/2024 with pericardial shunt placement. patient was able to wean off Levophed after pericardiocentesis. Cardiac tamponade s/p pericardiocentesis with pericardial shunt placement cardiogenic shock secondary to tamponade, resolved. Off of Levophed Acute kidney injury, likely hemodynamic in the setting of refractory hypotension Hyperlactatemia, similar d/t Paroxysmal atrial fibrillation s/p left atrial appendage closure w/28 mm Amplatzer Amulet device General Subjective: friendly and cooperative, reports he is feeling well Patient Active Problem List Diagnosis Atrial fibrillation [...] skin Glaucoma Glycosuria Left corneal abrasion Proteinuria Paroxysmal atrial fibrillation (CMS/HCC) Pericardial effusion Past Medical History: Diagnosis Date Abnormal ECG Arrhythmia Atrial fibrillation (CMS/HCC) Heart valve disease Hypertension Sleep apnea Past Surgical History: Procedure Laterality Date CARDIOVERSION CHOLECYSTECTOMY KNEE SURGERY REPLACEMENT TOTAL KNEE ONCOLOGIC Precautions Precautions Medical Precautions: drain, fall risk (pericaridal drain) Pain Pain Assessment Pain Score: 0 - No pain Cognition Cognition Overall Cognitive Status: Within Functional Limits General Assessment General Assessment Hearing: (wfl) Hand Dominance: Right Home Living Home Living Type of Home: House Lives With: Alone Home Adaptive Equipment: Walker rolling, Cane (sc, hhs, rts) Home Layout: One level Home Access: Stairs to enter without rails (4) Bathroom Shower/Tub: Walk-in shower Prior Level of Function Prior Function Level of [place]: Independent with ADLs and functional transfers, Independent with homemaking with ambulation (drives) Prior Functional Mobility: Independent without device Prior IADLs IADL History Homemaking Responsibilities: Yes Static Standing Balance Static Standing Balance Static Standing-Level of Assistance: Close supervision ADL ADL LE Dressing Assistance: Stand by Transfers Transfers Transfer: (indep supine to sit EOB, SBA with RW., sit to stand, 40 feet X2, standing five minutes and sit into chair) Objective General Assessments Activity Tolerance Endurance: Stage II Vision - Basic Assessment Current Vision: No visual deficits Sensation Light Touch: No apparent deficits Coordination Movements are Fluid and Coordinated: Yes Extremity Assessments RUE Assessment RUE Assessment: (reports no issues with UB / MMT deferred) Outcome Assessments AM-PAC 6 Clicks Putting on and taking off regular lower body clothing?: A Little (Min Assist/Contact Guard/Supervision) Bathing(Including washing,rinsing,drying)?: A Little (Min Assist/Contact Guard/Supervision) Toileting, which includes using the toilet,bedpan,or urinal?: A Little (Min Assist/Contact Guard/Supervision) Putting on and taking off regular upper body clothing?: None (Independent) Taking care of personal grooming such as brushing teeth?: None (Independent) Eating meals?: None (Independent) Total Score OT [facility]: 21 Assessment/Plan OT Assessment OT Impairments: Decreased ADL status, Decreased endurance, Decreased functional mobility OT Assessment/PATEL Summary: (needs skilled OT due to weakness and fatigue) Prognosis: Good Evaluation/Treatment Tolerance: Patient limited by fatigue Medical Staff Made Aware: Yes OT Education/Comments: (OT goals with good verbal return) Plan Level of assist: 1 assist Treatment Interventions: ADL retraining, Functional transfer training, Endurance training, Patient/family training, Neuromuscular reeducation, Compensatory technique education OT Plan: Skilled OT OT Frequency: 5 times per wee (more content not included)... [facility] 01-26-2024 Note ---- Attestation signed by Lionel Mena MD at 01/26/2024 4:39 PM I personally saw and examined the patient on the same date of service as resident/fellow . I discussed the findings and therapeutic plan with the resident/fellow . I agree with the documentation, except for any edits/updates below. Teaching Physician's Revisions: Cardiac tamponade, pericardial effusion, status post drain placement. Atrial fibrillation, rate controlled Discussed with cardiology, patient can be transferred out of ICU. ---- Medical ICU Progress Note Patient - Tito Goncalves Age - 79 [facility] 1945 [id number] Date of Admission - 01/24/2024 10:46 AM HPI/Hospital Course patient is a 79-year-old gentleman who is status post left atrial appendage closure on 01/06 due to paroxysmal A-fib. patient was brought to ICU for monitoring. He started to become hypotensive, stat echo showed concerns for pericardial effusion leading to tamponade physiology. Patient was on Levophed briefly. patient had pericardiocentesis on 01/25/2024 with pericardial shunt placement. patient was able to wean off Levophed after pericardiocentesis. SUBJECTIVE Patient was evaluated this morning. Complains no events overnight. Was able to sleep decent. No chest pain back pain shortness of breath nausea vomiting lightheadedness dizziness focal deficits. OBJECTIVE Vitals height is 1.829 m (6') and weight is 110 kg (242 lb 15.2 oz). His temperature is 36.8 ???C (98.3 ???F). His blood pressure is 123/72 and his pulse is 130 (abnormal). His respiration is 19 and oxygen saturation is 90%. Temp: [36.4 ???C (97.5 ???F)-37.2 ???C (99 ???F)] 36.8 ???C (98.3 ???F) Heart Rate: [71-130] 130 Resp: [10-31] 19 BP: (87-137)/(50-78) 123/72 FiO2 (%): [21 %] 21 % Physical Exam: @PESA@ Weight: Admission weight: 112 kg (248 lb) Wt Readings from Last 1 Encounters: 01/25/24 110 kg (242 lb 15.2 oz) Input/Output: Intake/Output Summary (Last 24 hours) at 01/26/2024 1523 Last data filed at 01/26/2024 1200 Gross per 24 hour Intake 3166.67 ml Output 954 ml Net 2212.67 ml Ventilator: Settings FiO2 (%): 21 % FiO2 (%): [21 %] 21 % Lab Results ABG: CBC: Results from last 7 days Lab Units 01/26/2433201/25/24 0438 WBC AUTO 10*3/uL 12.08* 13.57* HEMOGLOBIN g/dL 10.6* 11.0* HEMATOCRIT % 33.2* 34.5* PLATELETS AUTO 10*3/uL 123* 191 Coagulation: Results from last 7 days Lab Units 01/25/24 04501/24/24 1056 INR 1.24* -- PINR -- 1.1 Metabolic Panel: Results from last 7 days Lab Units 01/26/2433201/25/2443701/24/24 1556 POTASSIUM mmol/L 3.9 5.0 4.3 CHLORIDE mmol/L 109* 104 103 CO2 mmol/L 21 20* 25 BUN mg/dL 37* 30* 21 CREATININE mg/dL 1.62* 1.99* 1.26 GLUCOSE mg/dL 152* 257* 184* CALCIUM mg/dL 7.6* 7.8* 8.8 MAGNESIUM mg/dL 1.9 1.8* -- Liver Panel: No lab exists for component: TOTALPROTEI , LABBILIRUBIN , TOTALBILIRUB , BILIRUB , BILIRUBIND Glucose: Hgb A1c: Cardiac: Results from last 7 days Lab Units 01/25/248 TROPONIN I ng/mL 0.84* Anemia Labs: Lipid Panel: No lab exists for component: CHOLHDL Urine Labs: No results found for: WBCU , UROBILINOGEN Additional Labs: No lab exists for component: LACTICACID , PROCALCITON Cultures Lab Results Component Value Date BLOOD CULTURE No growth at 18-24 hours 01/25/2024 BLOOD CULTURE No growth at 18-24 hours 01/25/2024 Medications Scheduled: [Held by provider] amLODIPine, 10 mg, oral, Daily aspirin, 81 mg, oral, q AM atorvastatin, 10 mg, oral, q PM carvedilol, 12.5 mg, oral, BID with meals clonazePAM, 1 mg, oral, Daily clopidogrel, 75 mg, oral, Daily insulin lispro, 0-20 Units, subcutaneous, Before meals & nightly [Held by provider] lisinopril, 10 mg, oral, Daily pantoprazole, 40 mg, oral, Daily [Held by provider] propafenone, 150 mg, oral, TID traZODone, 50 mg, oral, Nightly Infusions: As Needed: PRN medications: glucose OR dextrose 50 % in water (D50W), nitroglycerin, ondansetron ODT OR ondansetron ASSESSMENT Cardiac tamponade s/p pericardiocentesis with pericardial shunt placement cardiogenic shock secondary to tamponade, resolved. Off of Levophed Acute kidney injury, likely hemodynamic in the setting of refractory hypotension Hyperlactatemia, similar d/t Paroxysmal atrial fibrillation s/p left atrial appendage closure w/28 mm Amplatzer Amulet device Hypertension Type II diabetes mellitus Normocytic anemia Thrombocytopenia PLAN patient is still having over 250 mL of fluid in the last 24 hours, continue pericardial drain until output is less than 25 mL in 24 hours. Resume dual antiplatelet therapy for thrombus prophylaxis after ARLETTE C procedure. Hold anticoagulation. Patient in limited echocar (more content not included)... [facility] 01-26-2024 Note ---- Attestation signed by Zoran Daniel MD at 01/27/2024 1:14 AM By using the attestations below, the [...] be an additional personal documentation from me. ---- Cardiology Progress Note Subjective Subjective: Tito Goncalves is a 79 y.o. male who initially presented for ARLETTE closure and is s/p [place] on 01/23. Overnight it was reported patient had a fall with subsequent hypotension and was moved to the MICU for vasopressors. A stat echo demonstrated pericardial effusion and pericardiocentesis was preformed with extraction of 350mL blood fluid. A pericardial drain was left. Drain output over 250mL today. He denies chest pain, shortness of breath, palpitations, lightheadedness or dizziness. Objective Current Facility-Administered Medications: [Held by provider] amLODIPine (Norvasc) tablet 10 mg, 10 mg, oral, Daily, Lilibeth March MD aspirin EC tablet 81 mg, 81 mg, oral, q AM, Lilibeth March MD, 81 mg at 01/25/241005 atorvastatin (Lipitor) tablet 10 mg, 10 mg, oral, q PM, Lilibeth March MD, 10 mg at 01/25/241952 carvedilol (Coreg) tablet 12.5 mg, 12.5 mg, oral, BID with meals, Lilibeth March MD clonazePAM (KlonoPIN) tablet 1 mg, 1 mg, oral, Daily, Lilibeth March MD, 1 mg at 01/25/241952 clopidogrel (Plavix) tablet 75 mg, 75 mg, oral, Daily, Lilibeth March MD, 75 mg at 01/25/241005 glucose chewable tablet 24 g, 24 g, oral, q15 min PRN OR dextrose 50 % in water (D50W) syringe 25 g, 25 g, intravenous, q15 min PRN, Lilibeth March MD insulin lispro (HumaLOG) injection 0-20 Units, 0-20 Units, subcutaneous, Before meals & nightly, Lilibeth March MD, 2 Units at 01/26/24 1205 [Held by provider] lisinopril tablet 10 mg, 10 mg, oral, Daily, Lilibeth March MD nitroglycerin (Nitrostat) SL tablet 0.4 mg, 0.4 mg, sublingual, q5 min PRN, Deangelo Porter MD ondansetron ODT (Zofran-ODT) disintegrating tablet 4 mg, 4 mg, oral, q8h PRN OR ondansetron HCl (PF) (Zofran) injection 4 mg, 4 mg, intravenous, q6h PRN, Lilibeth March MD pantoprazole (ProtoNix) EC tablet 40 mg, 40 mg, oral, Daily, Lilibeth March MD, 40 mg at 01/26/24 0633 [Held by provider] propafenone (Rythmol) tablet 150 mg, 150 mg, oral, TID, Lilibeth March MD, 150 mg at 01/24/24 2211 traZODone (Desyrel) tablet 50 mg, 50 mg, oral, Nightly, Lilibeth March MD, 50 mg at 01/25/246 Objective: Patient Vitals for the past 24 hrs: BP Temp Temp src Pulse Resp SpO2 01/26/24 1100 112/67 -- -- 95 24 93 % 01/26/24 1000 135/74 -- -- 80 21 95 % 01/26/24 0900 119/69 -- -- 75 12 94 % 01/26/24 0800 129/74 36.4 ???C (97.5 ???F) Temporal 80 21 94 % 01/26/24 0700 110/64 -- -- 77 20 96 % 01/26/24 0600 106/57 -- -- 74 15 97 % 01/26/24 0500 102/53 -- -- 73 10 96 % 01/26/24 0400 104/53 -- -- 73 -- 95 % 01/26/24 0300 107/56 -- -- 74 21 96 % 01/26/24 0200 93/57 -- -- 72 -- 97 % 01/26/24 0100 115/59 -- -- 74 -- 98 % 01/26/24 0045 -- -- -- -- 13 -- 01/26/24 0000 95/53 36.8 ???C (98.2 ???F) -- 71 17 94 % 01/25/24 2353 -- -- -- -- -- 95 % 01/25/24 2300 106/61 -- -- 83 17 96 % 01/25/24 2200 95/60 -- -- 74 16 96 % 05/01/24 2132 -- -- -- -- -- 95 % 01/25/24 2100 87/50 -- -- 86 16 93 % 01/25/241999 106/58 -- -- 92 20 95 % 01/25/24 1945 95/57 -- -- 86 21 95 % 01/25/24 1930 89/60 -- -- 88 21 94 % 01/25/24 1915 98/60 -- -- 86 20 95 % 01/25/24 1902 100/62 36.4 ???C (97.5 ???F) Temporal 93 20 95 % 01/25/24 1900 -- -- -- 91 21 95 % 01/25/24 1800 119/78 37 ???C (98.6 ???F) -- 101 19 96 % 01/25/24 1700 127/61 -- -- 93 (!) 31 95 % 01/25/24 1600 128/74 37.2 ???C (99 ???F) -- 109 19 97 % 01/25/24 1500 131/74 -- -- 91 22 96 % Physical Examination: GENERAL: AOx3, in no acute distress. HEAD: Atraumatic, normocephalic. EYES: ARIK, EOMI. NECK: No JVD present. CARDIAC: RRR. No murmur, rubs, or gallops. Pericardial drain in place with serosanguinous drainage RESPIRATORY: CTAB, no increased effort of breathing. ABDOMEN: Soft, nontender, nondistended. EXTREMITIES: No lower extremity edema, peripheral pulses are 2+ bilaterally. Right groin access site without hematoma NEURO: No focal deficits Relevant Lab Results Encounter Date: 01/24/24 ECG 12 lead Result Value Ventricular Rate 52 Atrial Rate 52 IN Interval 184 QRS DURATION 84 QT Interval 424 QTC CALCULATION(BAZETT) 394 P [place] 79 R-[place] 51 T Wave [place] 76 Impression Sinus bradycardia Nonspecific T wave abnormality Abnormal ECG (more content not included)... [facility] 01-26-2024 Note 01/26/24 1243 Admission Assessment Questions Verify insurance with patient Yes Do you understand medical disease or what brought you into the hospital? Yes Who is your current PCP? Dr Metz in [place] Can I schedule a follow up appointment for you at the time of discharge? Yes Do you understand why you are taking your current medications? Yes Are you taking your medications as prescribed? Yes Did patient provide teach back? Yes Would you like use our pharmacy [facility] to fill your new medications at the time of Discharge? No Does the patient have a medical case worker assigned to them through their insurance? No Living Arrangement (Current/Prior to Hospitalization) Private residence (alone) Does the patient have history of HHC or SNF? No Assistive Device Not applicable Patient's goal for discharge home Was patient reminded that goal for discharge is 11am? No Does the patient have transportation at discharge? Yes Type of Residence/Post Acute Needs Private residence Is PT/OT appropriate? Yes Is PT/OT ordered? Yes Is SW consult appropriate? No Is SW consult ordered? No Do you understand the benefits of MyChart? Yes Were you able to send link and activate MyChart? No [facility] 01-25-2024 Note ---- Attestation signed by Zoran Daniel MD at 01/26/2024 12:40 AM By using the attestations below, the [...] be an additional personal documentation from me. Pt is s/p pericardial tap and hemodynamically stable, ---- Cardiology Progress Note Subjective Subjective: Tito Goncalves is a 79 y.o. male who initially presented for ARLETTE closure and is s/p Watchmann on 01/23. Overnight it was reported patient had a fall with subsequent hypotension and was moved to the MICU for vasopressors. A stat echo demonstrated pericardial effusion and pericardiocentesis was preformed with extraction of 350mL blood fluid. A pericardial drain was left. Today drain output is minimal this am. He denies chest pain, shortness of breath or palpitations. Access site in right groin with some ecchymosis, no hematoma. Objective Current Facility-Administered Medications: [Held by provider] amLODIPine (Norvasc) tablet 10 mg, 10 mg, oral, Daily, Lilibeth March MD aspirin EC tablet 81 mg, 81 mg, oral, q AM, Lilibeth March MD, 81 mg at 01/25/24 1006 atorvastatin (Lipitor) tablet 10 mg, 10 mg, oral, q PM, Lilibeth March MD [Held by provider] carvedilol (Coreg) tablet 12.5 mg, 12.5 mg, oral, BID with meals, Lilibeth March MD clonazePAM (KlonoPIN) tablet 1 mg, 1 mg, oral, Daily, Lilibeth March MD, 1 mg at 01/24/24 2211 clopidogrel (Plavix) tablet 75 mg, 75 mg, oral, Daily, Lilibeth March MD, 75 mg at 01/25/24 1006 glucose chewable tablet 24 g, 24 g, oral, q15 min PRN OR dextrose 50 % in water (D50W) syringe 25 g, 25 g, intravenous, q15 min PRN, Lilibeth March MD insulin lispro (HumaLOG) injection 0-20 Units, 0-20 Units, subcutaneous, Before meals & nightly, Lilibeth March MD, 2 Units at 01/25/24 1209 [Held by provider] lisinopril tablet 10 mg, 10 mg, oral, Daily, Lilibeth March MD nitroglycerin (Nitrostat) SL tablet 0.4 mg, 0.4 mg, sublingual, q5 min PRN, Deangelo Porter MD norepinephrine in sodium chloride 0.9 % (Levophed) 8 mg/250ml infusion, 0.01-2 mcg/kg/min, intravenous, Continuous, Kodak Benoit MD, Stopped at 01/25/24 0904 ondansetron ODT (Zofran-ODT) disintegrating tablet 4 mg, 4 mg, oral, q8h PRN OR ondansetron HCl (PF) (Zofran) injection 4 mg, 4 mg, intravenous, q6h PRN, Lilibeth March MD pantoprazole (ProtoNix) EC tablet 40 mg, 40 mg, oral, Daily, Lilibeth March MD, 40 mg at 01/25/24 1007 [Held by provider] propafenone (Rythmol) tablet 150 mg, 150 mg, oral, TID, Lilibeth March MD, 150 mg at 01/24/24 2211 sodium chloride 0.9 % infusion, 200 mL/hr, intravenous, Continuous, Oliver Crane MD, Last Rate: 100 mL/hr at 01/25/24 1200, 100 mL/hr at 01/25/24 1200 traZODone (Desyrel) tablet 50 mg, 50 mg, oral, Nightly, Lilibeth March MD, 50 mg at 01/24/24 2211 Objective: Patient Vitals for the past 24 hrs: BP Temp Temp src Pulse Resp SpO2 Weight 01/25/24 1200 139/58 -- -- 68 24 96 % -- 01/25/24 1100 (!) 131/91 -- -- 92 24 92 % -- 01/25/24 1000 (!) 149/93 -- -- 62 18 98 % -- 01/25/24 0912 150/70 -- -- 81 16 98 % -- 01/25/24 0845 -- -- -- -- -- 96 % -- 01/25/24 0844 121/77 -- -- 81 16 96 % -- 01/25/24 0715 108/66 -- -- 67 18 93 % -- 01/25/24 0702 -- -- -- 73 -- -- -- 01/25/24 0700 80/65 -- -- 70 17 95 % -- 01/25/24 0658 91/57 -- -- 58 16 94 % -- 01/25/24 0637 -- -- -- 70 17 95 % -- 01/25/24633 100/61 36 ???C (96.8 ???F) Temporal -- -- -- 110 kg (242 lb 15.2 oz) 01/25/24524 -- -- -- 57 15 96 % -- 01/25/24524 92/60 -- -- -- -- -- -- 01/25/24519 -- -- -- 55 15 97 % -- 01/25/24519 93/62 -- -- -- -- -- -- 01/25/24514 -- -- -- 54 15 97 % -- 01/25/24514 89/58 -- -- -- -- -- -- 01/25/24509 -- -- -- 55 15 97 % -- 01/25/24509 74/58 -- -- -- -- -- -- 01/25/24504 -- -- -- 56 14 96 % -- 01/25/24504 72/53 -- -- -- -- -- -- 01/25/24499 -- -- -- 54 (!) 0 -- -- 01/25/240 74/52 -- -- 54 15 95 % -- 01/25/24454 -- -- -- 53 14 96 % -- 01/25/24454 72/54 -- -- -- -- -- -- 01/25/24449 -- -- -- 54 14 97 % -- 01/25/240 75/52 -- -- -- -- -- -- 01/25/24444 -- -- -- -- -- 97 % -- 01/25/245 75/54 -- -- 54 14 -- -- 01/25/240 -- -- -- 54 15 98 % -- 01/25/249 75/55 -- -- -- -- -- -- 01/25/24434 -- -- -- -- -- 97 % -- 01/25/245 100/74 -- -- 55 14 -- -- 01/25/240 -- -- -- 74 16 98 % -- 01/25/24 0425 -- -- -- 53 14 96 % -- 01/25/24 0420 -- -- -- 55 11 95 % -- 01/25/24 0418 70/53 -- -- -- -- -- -- 01/25/24 0 (more content not included)... [facility] 01-25-2024 Note Patient: Tito mejia Procedure Information Date/Time: 01/25/24 1800 Procedure: Pericardiocentesis Location: [facility] [facility] / [facility] (Cath) Providers: Oliver Crane MD Clinical information reviewed: Allergies Meds Physical Exam Airway Mallampati: II Cardiovascular Rhythm: regular Rate: normal Dental Pulmonary - normal exam Abdominal - normal exam Anesthesia Plan ASA 3 other (Conscious sedation) intravenous induction Anesthetic plan and risks discussed with patient. Use of blood products discussed with patient who consented to blood products. Plan discussed with attending. Additional Equipment Requests [facility] 01-25-2024 Note CLINICAL INFORMATION : Ground level fall, recurrent hypotension, watchman procedure, right femoral access COMPARISON: None TECHNIQUE: CT of the abdomen and pelvis without intravenous contrast. All CT scans at this facility use dose modulation, iterative reconstruction, and/or weight based dosing when appropriate to reduce radiation dose to as low as reasonably achievable. FINDINGS: LOWER CHEST: Small-moderate pericardial effusion. Visualized lung bases are clear. Concurrently performed CT of the chest was dictated separately. LIVER AND BILIARY: Pneumobilia predominantly within the left hepatic lobe and common bile duct. Cholecystectomy. PANCREAS: 4.8 x 4.3 cm lobulated cystic structure in the tail of the pancreas. SPLEEN: Nonenlarged. ADRENALS: Hypoattenuating right adrenal nodule measuring up to 2.0 cm, likely adrenal adenoma. Left adrenal gland is unremarkable. KIDNEYS, URETERS, AND BLADDER: Simple cyst at the inferior pole of the right kidney which is not require further imaging follow-up. No renal collecting system dilatation. Layering contrast material in the dependent portion of the urinary bladder. GI TRACT AND PERITONEUM: The bowel is nondilated. The appendix and terminal ileum appear unremarkable. VASCULATURE: Some fat stranding around the right femoral vasculature compatible with recent femoral access. No fluid collections to suggest increasing hematoma. LYMPH NODES: No lymphadenopathy in the abdomen or pelvis by size morphologic criteria. REPRODUCTIVE ORGANS: Prostatomegaly. MUSCULOSKELETAL: Multilevel degenerative changes of the lumbar spine. Diffuse idiopathic shoulder hyperostosis of the lower thoracic spine. No acute or suspicious osseous lesions. IMPRESSION: *No acute abnormality in the abdomen or pelvis. Specifically no retroperitoneal fluid collections. *Small to moderate pericardial effusion. Etiology for the pericardial fluid is uncertain. Consider cardiology consultation. *Incidental 4.8 cm lobulated cystic structure in the tail the pancreas. MRCP or CT pancreatic mass protocol in 6 months to document stability. *Pneumobilia. Approved by:Ryan Corrigan01/25/2024 6:34 AM. I, Trenton Martinez,have reviewed the image(s) and agree with the findings in this report. Electronically signed: Trenton Martinez. 6 [facility] 01-25-2024 Note Responded to rr Hypotension fall Pt seen chart workup reviewed A/o denies cp dyspnea dizziness abdominal pain weakness feels tired Vitals reviewed Ent clear Neck jvd0 Lungs dimished bases Cvs distatnt heart tones Abdomen obese nt +bs Edema A/p fall Hypotension s/p left atrial appendage closure Low qrs voltage new compared to previous ekg Iv fluid bolus consider levophed check labs including troponins lactate mag electrolytes echo stat ekg ordered d/w cardiology pt to move to [facility] 01-24-2024 Note Pharmacy Dosing Serv ice - Vancomycin Initial Consult Note Pharmacy has been consulted for the dosing and evaluation of Drug: Vancomycin Indication: surgical prophylaxis Other Antimicrobial Regimens: None Labs and Renal Function Total body weight: 112 kg (248 lb) [place] body weight: 77.6 kg (171 lb 1.2 oz) Adjusted ideal body weight: 91.6 kg (201 lb 13.5 oz) Body mass index is 33.63 kg/m???. No results found for: WBC Lab Results Component Value Date BUN 21 01/24/2024 CREATININE 1.26 01/24/2024 CrCl or renal function: Estimated Creatinine Clearance: 62.5 mL/min (by C-G formula based on SCr of 1.26 mg/dL). I/O: No intake/output data recorded. Microbiology: -No relevant culture data. MRSA nares ordered for this admission. Assessment / Comments: - Patient is afebrile and hemodynamically stable. Presenting to [facility] for closure of left atrial appendage. Vancomycin ordered for prophylaxis due to presence of penicillin allergy -Current risk factors for nephrotoxicity: Advanced age -Comments on renal function / baseline serum creatinine: Serum creatinine/creatinine clearance are appropriate for age and sex. -Recent vancomycin history: No Plan: -Give vancomycin 2000 mg pre-operatively, followed by vancomycin 1000 mg every 12 hours for 2 doses post op per policy IPP-026. - Please ensure timing of antibiotic is appropriate based on timing of procedure. First post op dose to be administered 6-8 hours after start of pre-operative dose. -Check BUN/SCr as clinically indicated -Pharmacy will sign off as no further dosing or levels are needed following perioperative administration. -Please do not hesitate to contact us with comments or questions Thank you, Rose Tomas, PharmD, 01/24/24 [facility] 01-24-2024 Note Patient: Tito mejia Procedure Information Date/Time: 01/24/24 1300 Procedure: Left atrial appendage closure (transvenous) - ADRIENNE WILL CALL Location: [facility] [facility] / [facility] (Cath) Providers: Oliver Crane MD Clinical information reviewed: Allergies Meds Physical Exam Airway Mallampati: II TM distance: >3 FB Neck ROM: full Cardiovascular Rhythm: regular Rate: normal Dental Pulmonary Abdominal Anesthesia Plan ASA 3 other (Conscious sedation.) Anesthetic plan and risks discussed with patient. Use of blood products discussed with patient who consented to blood products. Additional Equipment Requests [facility] 01-11-2024 Note Amna Sousa CNP - patient's daughter- called with questions about her dad's upcoming LAAO procedure. She said you had given her instructions for him previously regarding coumadin, but she cannot find it. Can you please call her cell phone when you get a chance? [phone] If you need me to do anything, please let me know. Thanks! :) [facility] 10-31-2023 Evaluation note Encounter Date Diagnosis Assessment Notes Oct, Essential hypertension (ICD-10 - I10) This patient is instructed to consume a healthy, low-fat, low-salt diet. They are also encouraged to continue exercise to achieve/maintain a normal BMI. Patient is instructed on home BP measurements: - rest for 5 minutes w/o talking.- positioned w/ feet on floor and arm supported.- average best 2/3 readings w/ goal < 135/85.- update office w/ home readings in 2 weeks. Oct, Controlled type 2 diabetes mellitus with hyperglycemia (ICD-10 - E11.65) This patient is following a comprehensive diabetic treatment plan. They are checking their feet daily for calluses and nonhealing ulcers. They are being seen for yearly dilated eye examinations. Goals: SBP less than 130, LDL less than 100, FBS less than 140, A1C less than 7%. They are checking their BS daily, will which are reviewed at the office visit. Continue regular routine monitoring of A1C, Microalbumin, Dilated eye exam and Foot exam Oct, Diastolic dysfunction with chronic heart failure (ICD-10 - I50.32) Healthy, low salt diet Exercise daily No changes in medication Daily weights, notify office w/ > 3lbs gain. Strict control of BP and HR Oct, Stage 3a chronic kidney disease (CKD) (ICD-10 - N18.31) The patient is instructed on adequate control of hypertension and diabetes, if appropriate. They are also educated on the associated risks of NSAIDs and PPI use with kidney disease. They were instructed on adequate fluid balance and to avoid dehydration. Oct, Paroxysmal atrial fibrillation (ICD-10 - I48.0) This patient is in NSR or rate controlled. This patient is anticoagulated to prevent thromboembolic events. They are maintaining regular scheduled appts with their income auditor. Scheduled for LAAO procedure but postponed until spring. Fall precautions. Oct, Obstructive sleep apnea (ICD-10 - G47.33) Auto CPAP 10-15, Facial Mask This patient is aware of the benefits associated with CUBA: With continued use, the patient reduces the risk for FL, CVA, HTN, cardiac dysrhythmias and sudden cardiac deaths.The patient is also aware of the association between CUBA and morning headaches, daytime somnolence, fatigue and obesity, which also has been improved with continued use.The patient is compliant with treatment, wearing the equipment every night for greater than 4 hours.The patient is instructed to continue use of the CPAP for CUBA treatment. Oct, Gastro-esophagea l reflux disease with esophagitis, without bleeding (ICD-10 - K21.00) Avoid lying flat after eating. Avoid eating 2 hours prior to bedtime. Smaller, frequent meals may be better tolerated.Weight loss if overweight.PPI with any heartburn.Monitor for dysphagia. Oct, Non-rheumatic mitral regurgitation (ICD-10 - I34.0) Denies CP, orthopnea, PND or increasing edema. Serial Echo f/u Cardiology Oct, Hyperlipidemia, mixed (ICD-10 - E78.2) Instructed on diet and exercise with continued statin therapy.Discussed the beneficial effects of lowering cholesterol in reducing the risk for cerebrovascular and cardiovascular disease. Oct, Hepatic steatosis (ICD-10 - K76.0) Healthy, low fat/high protein diet. Exercise w/ goal of 10% weight loss [employer] Other 02-02-2024 NoteRight Eye Quality was good. Scan locations included subfoveal. Progression has been stable. Findings include abnormal foveal contour, disciform scar. Left Eye Quality was good. Scan locations included subfoveal. Progression has been stable. Findings include normal observations.[facility] [id number] History of Present illness Narrative* Jose R Dodd, DO - 10/28/2023 9:30 AM EST Images from the original note were not [...] now given soon to be trip to [place] as well as side effects from last treatment in August. He was provided an Amsler grid to check daily and note any changes to this. He understands to get jacob of his retina specialist in [place] if there was a change. Will see [...] artificial tears were recommended. documented in this encounterUniversity of Missouri Children's [id number] [facility] Chief Complaint: Patient here [...] PSYCH: appropriate mood, affect, and judgement. Transesophageal Echocardiogram-[facility] Name: TITO GONCALVES Study Date: 09/16/2023 09:38 AM B/P: 136 mmHg/70 mmHg HR: Date of : 1945 Location: [facility] Height: 72 in. Age: 78 year(s) Patient Room : [facility] Weight: 246 lb. Gender: Male Patient Status: OutPt BSA: 2.33 m2 Indication: Atrial Fibrillation, Pre LAAO closure Examination: JESSICA/Limited Doppler/CFI, Agitated Saline, 3D images Image Quality: Good Patient Consent: Informed, written consent was obtained for the procedure s p @ c 3 Exam Location: A JESSICA was performed in the [facility] without complications s p @ c 3 [...] should problems arise Maggy Murphy MD, MPH, [facility], [facility], [facility] Interventional Cardiology Pager Email: [email or web address]12-12-2023 NoteUT Cardiology - [facility] Clinic Subjective Tito Goncalves is a 78 y.o. year old male patient being seen to discuss LAAO. He presented to [facility] ED in Jun 2023 for fall. He is anticoagulated with warfarin for afib. Back in December 2022 he had brain bleed s/p fall. Was treated at [facility]. He denies chest pain, SOB, and lightheadedness/syncope. [...] In April 2019 he presented to the [facility] with atrial fibrillation with controlled ventricular [...] Take 1 tablet (more content not included)... [facility]06-21-2023 History of Present illness Narrative* Shannen Chahal - 03/16/2023 11:20 AM EDT Ortho Nurse - Established Patient Intake Room#: 5 Date: 03/16/2023 11:20 AM Patient: Tito Goncalves MR#: [id number] : 1945 Age: 78 y.o. 1yr R [...] tablet, Rfl:0 traZODone 50 MG tablet, Take 1 tablet [...] allergy, and sulfa antibiotics. * Azul Rachel APRN-TOBI - 03/16/2023 11:20 AM EDT HPI: Patient is here [...] on face to face time with patient. Azul Rachel APRN-TOBI I have reviewed the findings of the clinical integrated logistics support manager and agree with their assessment. Ortho Nurse - Established Patient Intake Room#: 5 Date: 03/16/2023 11:20 AM Patient: Tito Goncalves MR#: [id number] : 1945 Age: 78 y.o. 1yr R [...] tablet, Rfl:0 traZODone 50 MG tablet, Take 1 tablet [...] allergy, and sulfa antibiotics. documented in this [facility]06-05-2023 NotePatient here for 1 year follow up mitral valve disorder, afib, and hypertension. He had a bad fall on 2023 and ended up with brain bleed and was treated at [facility]. He has since resumed warfarin and is doing very well. Denies chest pain, SOB, lightheadedness and syncope. Review of Systems Cardiovascular: Positive for leg swelling (resolves by morning). Hematologic/Lymphatic: Bruises/bleeds easily. Musculoskeletal: Positive for arthritis, back pain and myalgias. All other systems reviewed and are negative.[facility] 02-28-2023 NoteCardiovascular Medicine [facility] SUBJECTIVE Chief Complaint Patient presents with [...] Final Atrial Rate 06/13/2019 54 BPM Final IN Interval 06/13/2019 212 ms Final QRS DURATION 06/13/2019 102 ms Final QT Interval 06/13/2019 430 ms Final QTC CALCULATION(BEZET) 06/13/2019 407 ms Final P [place] 06/13/2019 42 degrees Final R-[place] 06/13/2019 -17 degrees Final T Wave [place] 06/13/2019 28 degrees Final Diagnosis 06/13/2019 Final Value:Sinu (more content not included)...[facility] 01-22-2023 Evaluation note* Encounter Date Diagnosis Assessment Notes Treatment Notes Treatment Clinical Notes Dec, Subarachnoid hemorrhage (ICD-10 - I60.9) [employer] Other 04-12-2023 Evaluation note* Encounter Date Diagnosis [...] are maintaining regular scheduled appts with their income auditor. Dec, Obstructive sleep apnea (ICD-10 - G47.33) Auto CPAP 10-15, Facial Mask This patient is aware of the benefits associated with CUBA: With continued use, the patient reduces the risk for FL, CVA, HTN, cardiac dysrhythmias and sudden cardiac [...] and weight loss. Improved control of BS [employer] Other 02-15-2023 Evaluation note* Encounter Date Diagnosis Assessment Notes Treatment Notes Treatment Clinical Notes Oct, Cholecystitis (ICD-1 0 - K81.9) [employer] Other 02-14-2023 NotePatient Education Material [facility] [...] physician?s office at: THANK YOU FOR CHOOSING [facility] FOR YOUR PROCEDURE! [phone] This information is not intended to replace advice given to you by your health care provider. Make sure you discuss any questions you have with your health care provider. ExitCare? Patient Information ?2016 [employer]. Custom Education added 09/2018[facility]02-14-2023 NoteNursing Discharge Summary Entered On: 11/09/2022 8:44 EST Performed On: 11/09/2022 8:43 EST by Sariah Schreiber RN AL Information Discharged to : Home Mode of Discharge : Ambulatory Discharge Transportation : Private vehicle Reg VTE Warfarin at Discharge : No Sariah Schreiber RN R - 11/09/2022 8:43 EST Education Instructions given to : Patient TeachBack Methodology : TeachBack, Explanation, Printed Material Barriers to Learning : None evident Educational concerns documented : N/A no barriers noted Sariah Schreiber RN R - 11/09/2022 8:43 EST Post-Hospital Education Adult Grid Activity Expectations : Verbalizes understanding Diagnostic Results : Verbalizes understanding Importance of Follow-Up Visits : Verbalizes understanding Pain Management : Verbalizes understanding Postoperative Instructions : Verbalizes understanding When to Call Health Care Provider : Verbalizes understanding Sariah Schreiber RN - 11/09/2022 8:43 EST Health Maintenance Education Adult Grid Diet/Nutrition : Verbalizes understanding Sariah Schreiber RN 11/09/2022 8:43 EST Safety Education Adult Grid Safety, Fall : Verbalizes understanding Sariah Schreiber RN 11/09/2022 8:43 EST Additional Session Learner/s Present : Daughter Abdoul ROMAINE, Sariah R - 11/09/2022 8:43 [facility]01-09-2023 Evaluation note* Encounter Date Diagnosis Assessment Notes [...] use, the patient reduces the risk for FL, CVA, HTN, cardiac dysrhythmias and sudden cardiac [...] INR being monitored, no bleeding complications noted [employer] Other 10-13-2022 History of Present illness Narrative* Luis Wang LPN - 07/08/2022 11:20 AM EDT Ortho Nurse - Established Patient Intake Room#: 2 4 month Right TKA, some pain of 1-2 when weed eating, going great Date: 07/08/2022 11:51 AM Patient: Tito Goncalves MR#: [id number] : 1945 Age: 77 y.o. Referring Physician: [...] have reviewed the findings of the clinical integrated logistics support manager and agree with their assessment. Ortho Nurse - Established Patient Intake Room#: 2 4 month Right TKA, some pain of 1-2 when weed eating, going great Date: 07/08/2022 11:51 AM Patient: Tito Goncalves MR#: [id number] : 1945 Age: 77 y.o. Referring Physician: [...] allergy, and sulfa antibiotics. documented in this [facility]08-08-2022 Hospital Discharge instructions Patient Education 05/03/2022 [...] urethra. Follow these instructions at home: Take fzaf-fia-zjizdfl and prescription medicines only as told by [...] 09/12/2006 Document Revised: 08/07/2019 Document Reviewed: 10/17/2017 [employer] Patient Education 2020 [employer]. Follow Up Care 04/27/2021 11:05:10 With:GAGE UMANZOR, Mc Blackman, URL Address: [facility] [address] [place] [phone]- [phone] When: Unknown Comments:PRN [facility] 07-14-2022 History of Present illness Narrative* Shannen Tirso - 04/08/2022 10:00 AM EDT Ortho Nurse - Established Patient Intake Room#: 5 Date: 04/08/2022 9:50 AM Patient: Tito Goncalves MR#: [id number] : 1945 Age: 77 y.o. 3wk S/P [...] cancer 2013 2017,2013 Arrhythmia afid not since 2017 Diabetes mellitus Essential hypertension, benign Hyperlipidemia OA [...] allergy, and sulfa antibiotics. * Azul Rachel APRN-TOBI - 04/08/2022 10:00 AM EDT HPI: Tito [...] roller. All pertinent portions of the clinical integrated logistics support manager documentation was reviewed and agree. EDYTA Ayala I have reviewed the findings of the clinical integrated logistics support manager and agree with their assessment. EDYTA Ayala Ortho Nurse - Established Patient Intake Room#: 5 Date: 04/08/2022 9:50 AM Patient: Tito Goncalves MR#: [id number] : 1945 Age: 77 y.o. 3wk S/P [...] allergy, and sulfa antibiotics. documented in this [facility]06-21-2022 Miscellaneous Notes* Nursing Notes - Kirsten [...] to his level of pain. At this momentEugene rates his pain level a 0 on [...] Guideline (CPG) Outcome: Ongoing Flowsheets (Taken 03/16/2022 032) Related Risk Factors (Skin Integrity Impairment, Risk/Actual): surgery/procedure Signs and Symptoms (Skin Integrity Impairment): other (see comments) Note: Dressing remains dry and intact with no drainage Hemovac contains small amount of drainage Pt denies pain, assessments unchanged and WDL Goal: Skin Integrity/Wound Healing Description: Patient will demonstrate the desired outcomes by discharge/transition of care. Outcome: Ongoing Flowsheets (Taken 03/16/2022322) Skin Integrity/Wound Healing: making progress toward outcome Note: POD #1 Problem: Skin Integrity Impairment, Risk/Actual (Adult) Intervention: Promote Skin Healing Flowsheets (Taken 03/16/2022322) Skin Protection: incontinence pads utilized transparent dressing maintained Intervention: Promote/Optimize Nutrition Flowsheets (Taken 03/16/2022322) Oral Nutrition Promotion: physical activity promoted safe use of adaptive equipment encouraged rest periods promoted Note: Pt not cleared by pt; pt able to sit at edge of the bed with 1 assist Intervention: Prevent/Manage Excess Moisture Flowsheets (Taken 03/16/2022322) Skin Protection: incontinence pads utilized transparent dressing maintained Intervention: Prevent/Minimize Sheer/Friction Injuries Flowsheets Taken 03/16/2022322 Pressure Reduction Techniques: positioned off wounds pressure points protected weight shift assistance provided Pressure Reduction Devices: heel offloading device utilized Taken 03/16/2022 0309 Positioning/Transfer Devices: pillows Note: IVÁN Hose, Foot pumps * Nursing Notes - Birgit [...] Information Source Information Source patient Contact Information Phlebotomy Supervisor Name Gini Medrano RN Case Manager's Living [...] that he plans to return home with [facility]. The patient states that his daughter [...] assist with discharge plans. documented in [facility]* Nursing Notes - Kirsten Crawford RN - 03/16/2022 3:01 PM EDT Discharge instructions gone over with pt and pt's daughter at this time by Regina GAVIN. Both, verbalize understanding and deny any further questions. Hemovac drain removed at this time, tip intact upon removal, pt tolerated well. [facility]06-21-20[facility] History of Present illness Narrative* Blanca Peck, DRAFTER GEOPHYSICAL - 03/16/2022 2:21 PM EDT 03/16/22 1421 [...] Transfer Skill: Sit To Stand, Rehab Eval [place] (Sit-Stand Transfers) (mod I) Physical Assist/Nonphysical Assist: Sit/Stand 1 person assist Weight-Bearing Restrictions: Sit/Stand weight-bearing as tolerated Assistive Device For Transfer: Sit/Stand armed chair Gait Skills, PT Eval Level of [place]: Gait (mod I) Weight-Bearing Restrictions: Gait weight-bearing as tolerated Assistive Device For Transfer: Gait 2 wheeled walker Gait Distance (600ft; patient demonstrates a good quality heel - toe pattern consistently throughtout treatment) Stair Negotiation Morehouse Level: Stair Negotiation supervision Physical Assist: Stair [...] patient has returned from PT. * Colin Fontaine, [facility],PharmD - 03/16/2022 11:58 AM EDT AOP Patient Education on Meds to Beds Scripts AOP received prescriptions for Tito Goncalves for bedside delivery at discharge Prescriptions filled and ready Medication Copay Acetaminophen 325mg 4.00 Oxycodone 5mg 8.60 Tab-A-Lesly 4.00 Docusate 100mg 4.00 Total $ 20.60 Birgit Henriquez (Reconciliation Analyst) reviewed medications with patient regarding indications, directions and potential side effects. Pt had no questions or concerns. Colin Fontaine RPh,PharmD * Jennifer Saab, OT - 03/16/2022 11:52 AM EDT 03/16/22 [...] Sit to Stand, Rehab Eval Level of [place]house: Sit/Stand contact guard Physical Assist/Nonphysical Assist: Sit/Stand 1 person assist Weight-Bearing Restrictions: Sit/Stand weight-bearing as tolerated Assistive Device for Transfer: Sit/Stand wheeled walker;armed chair Transfer Skill: Stand to Sit, Rehab Eval Level of [place]house: Stand/Sit contact guard Physical Assist/Nonphysical Assist: Stand/Sit [...] Eval) ADL retraining;balance training;transfer training PRIOR LEVEL AM-[facility] Activity Inpatient Short Form Putting on/Taking Off Lower Body Clothing 4 - No Assistance Bathing 4 - No Assistance Toileting 4 - No Assistance Putting on/Taking Off Upper Body Clothing 4 - No Assistance Grooming 4 - No Assistance Eating 4 - No Assistance PRIOR LEVEL AM-[facility] Activity Raw Score 24 PRIOR LEVEL AM-[facility] Activity Functional Limitation/Modifier 0.00% Prior Functional Impairment in Daily Activity CURRENT [facility] Daily Activity Inpatient Short Form Putting on/Taking Off Lower Body Clothing 3 - A Little Assistance Bathing 3 - A Little Assistance Toileting 3 - A Little Assistance Putting on/Taking Off Upper Body Clothing 3 - A Little Assistance Grooming 3 - A Little Assistance Eating 4 - No Assistance [facility] Raw Score 19 CURRENT AM[facility] Activity Functional Limitation/Modifier 42.80% Currently Impaired in [...] initiation of treatment Therapist Information License # [id number] In addition to above, ambulated with CGA using FWW. Reclined in chair at end of session with his call light and personal items placed in reach. Jennifer Saab OTR/L 03/16/2022 * Pato Gutierrez - 03/16/2022 11:46 AM EDT Pharmacy to Dose - Warfarin Note PATIENT: Tito Goncalves Room/Bed: [facility] Desired INR range: 2-3 Indication(s): Atrial Fibrillation Medications: No drug interactions were identified based on the patient's current therapy. Current Diet Status: Regular Recent bleeding/bleeding event: None noted Last labs: INR Date Value Ref Range Status 03/16/2022 1.37 (H) 0.85 - 1.10 Final Comment: 2.0-3.0 THERAPEUTIC RANGE 2.5-3.5 MECHANICAL VALVE RANGE Testing performed at [place], [place] [address] - ALBUMIN Date Value Ref Range Status 03/16/2022 3.3 (L) 3.5 - 5.0 G/dl Final - Plan: An order was placed for Coumadin 7.5 mg today x 1 based on INR = 1.37. A Pharmacist will continue to follow and make dose changes as clinically appropriate. Please contact pharmacy if there are any questions. Signed: Lopez Villafana Phone: [phone] Date/Time: 03/16/2022 11:46 AM * Yashira Valencia PT - 03/16/2022 10:16 AM EDT 03/16/22 [...] 3/5) LLE WFL Supine to Sit Mobility [place] Level: Supine->Sit stand-by assist Physical Assist: Supine->Sit (1 person) Bed Features/Set-up: Supine->Sit Head of bed elevated Skilled Rationale Verbal cues;Sequencing Sit to Stand Transfer [place] Level: Sit->Stand stand-by assist Physical Assist: Sit->Stand (1 person) Assistive Device: Sit->Stand 2 wheeled walker;gait belt Skilled Rationale Verbal cues;Hand placement;Sequencing Stand to Sit Transfer [place] Level: Stand->Sit stand-by assist Physical Assist: Stand->Sit (1 person) Assistive Device: Stand->Sit 2 wheeled walker;gait belt Skilled Rationale Verbal cues;Hand placement;Sequencing;Controlled descent for sitting Sitting Balance Static Sitting-Level of Assistance Independent Standing Balance Static Standing-Level of Assistance Stand-by assist Dynamic Standing-Level of Assistance Stand-by assist Standing-Balance Support 2 wheeled walker;Gait belt Skilled Rationale Verbal cues;Full extension to upright positioning/posture;Upright gaze/neck extension Gait Assessment [place] Level: Gait contact guard assist Physical Assist: [...] ARTHROPLASTY KNEE TOTAL Left 06/23/2015 CHOLECYSTECTOMY 2012 manager long term care goals, to be achieved at discharge: [...] discharge Yashira Valencia PT 03/16/2022 * Angela Solis RD - 03/16/2022 9:03 AM EDT NUTRITION [...] (248 lb) 02/08/18 117.9 kg (260 lb) [place] body weight: 77.6 kg (171 lb 1.9 [...] ARTHROPLASTY KNEE TOTAL Left 06/23/2015 CHOLECYSTECTOMY 2013 Nutrition Diagnosis NI-5.1 Increased protein needs related to increased demand for protein as evidenced by s/p orthopedic surgery. Interventions Monitoring & Evaluation Monitor PO intake, labs, wt, and ONS intake. BRANDEN Mckeon Registered Dietitian, Licensed Dietitian 03/16/22 * Gini Medrano RN - 03/16/2022 8:43 AM EDT Patient was assessed in [facility] on 02/18/22. Met with patient for follow up after surgery to discuss discharge plan. Patient plans to return home with [facility]. His daughter will be staying with [...] Warfarin and PT/INR management. Questions answered regarding [facility], patient denies any other questions or needs at this time. Referral information with orders for PT/INR faxed to [facility], spoke with staff who confirm start of care for tomorrow. Follow up appointment scheduled for 04/08/22 @ 10:00 am. * Grupo Morgan [facility],PharmD - 03/15/2022 6:24 PM EDT Pharmacy to Dose - Warfarin Note PATIENT: Tito Goncalves Room/Bed: [facility]/ Desired INR range: 2-3 Indication(s): Atrial Fibrillation Last labs: INR Date Value Ref Range Status 03/15/2022 1.36 (H) 0.85 - 1.10 Final Comment: 2.0-3.0 THERAPEUTIC RANGE 2.5-3.5 MECHANICAL VALVE RANGE Testing performed at [facility] [place], [place] [address] - ALBUMIN Date Value Ref Range Status 02/18/2022 3.8 3.5 - 5.0 G/dl Final - Plan: An order was placed for 5 mg based on current Home Dosage. A Pharmacist will continue to follow and make dose changes as clinically appropriate. Please contact pharmacy if there are any questions. Signed: Grupo Morgan RPh,PharmD, Pharmacist Phone: [phone] Date/Time: 03/15/2022 6:24 PM * Samantha Miner [...] you require anything further documented in this [facility]06-21-2022 Note* Nursing Notes - Dian Roberts [...] anxious to head home and settle in. [facility]06-21-2022 Hospital Discharge instructions* Discharge Instructions* Kirsten [...] diet * Discharge Instr - Notify* Gini Marcela, RN - 03/16/2022 11:45 AM EDT Home Health to draw daily PT/INR x 4 days or until therapeutic with results to [facility]. , Contact Office ([phone]) if: > Total Knee ROM < 90 [...] sent through Care Everywhere. * docusate (oral/rectal) (Irish) * oxycodone (Irish) documented [facility]* Plan of Care - Regina [...] discharge/transition of care. Outcome: Adequate for Discharge [facility]06-21-2022 Note* Nursing Notes - Kirsten Crawford RN - 03/16/2022 11:39 AM EDT Assessment unchanged from previous by this nurse unless otherwise noted in flowsheet [facility]06-21-2022 Hospital course Narrative* Domenico Ferguson MD - 03/16/2022 8:54 AM EDT Images from the original note were not included. Discharge Summary Name: Tito Goncalves Age: 77 y.o. Birthday: 1945 Admit Date: 03/15/2022 8:10 AM Discharge Date: 03/16/2022 Discharge Time: 03/16/2022 Discharge Unit: [facility] Rehab unit Unit Length of Stay: LOS: [...] insulin restless leg. Kidney stones, admitted to [facility] for elective rig ht total knee arthroplasty [...] as: COUMADIN STOP taking these medications Glucosamine-Chondroitin 5488-2788 MG/30ML LIQD Follow-up: No follow-up provider specified. Upcoming Appointments (up to five)-Some appointments for Medical Center outpatient clinics or diagnostic testing locations are not displayed below Provider Department Dept Phone 04/08/2022 10:00 AM [facility] [phone] Total coordination of discharge care taking greater that 35 minutes documented in this [facility]06-21-2022 Note* Plan of Care - Birgit [...] Devices: pillows Note: IVÁN Hose, Foot pumps [facility] [employer] [id number] Note* Nursing Notes - Birgit Thakur RN - 03/16/2022 3:09 AM EDT Assessment remains unchanged unless otherwise noted in flow sheet. Pt denies pain. Neuro/pulses unchanged. New bag of NS hung at this time. Vitals WDL. Pt denies any needs and call light is in reach. [facility] [employer] [id number] Note* Nursing Notes - Birgit Thakur RN - 03/15/2022 11:59 PM EDT Assessment remains unchanged unless otherwise noted in flow sheet. Pt denies any pain. Neuro/pulsesunchanged. NS infusing @ 100ml/hr and Ancef administered. Pt denies any needs and call light is in reach. [facility] [employer]06-20-2022 Note* Nursing Notes - Birgit Thakur RN - 03/15/2022 8:06 PM EDT RT called at this time due to O2 change from 1.5 to 1L. Pt also has home CPAP/BIPAP device. RT madeaware. [facility]06-20-2022 Note* Nursing Notes - Araseli Ron RN - 03/15/2022 5:53 PM EDT Patient tolerating clear liquids at this time, diet advanced per orders. [facility]06-20-2022 Consult note* Javier-Cameron Ferguson MD - 03/15/2022 4:10 PM EDT History and Physical Examination 03/15/22 4:10 PM Chief Complaint: Right total knee arthroplasty History of Present Illness: Patient is a 77 y.o. male presents for [facility] for elective right total knee arthroplastyDr. [...] History: Diagnosis Date Arrhythmia afid not since 2017 Diabetes mellitus Essential hypertension, benign Hyperlipidemia OA (osteoarthritis) of knee bilat CUBA (obstructive sleep apnea) RA (rheumatoid arthritis) Skin cancer 2013 Past Surgical History: Procedure Laterality Date REVISION ARTHROPLASTY KNEE Left 02/22/2017 ARTHROPLASTY KNEE TOTAL Left 06/23/2015 CHOLECYSTECTOMY 2013 Social History Tobacco Use Smoking status: Former [...] mg by mouth daily. Historical Provider Glucosamine-Chondroitin 2360-3895 MG/30ML Liquid Take by mouth. Historical Provider [...] 81 mg by mouth daily. 03/04/2022 Glucosamine-Chondroitin 6912-5964 MG/30ML Liquid Take by mouth. Multiple Vitamins-Minerals [...] OT, ST and SW. Domenico Ferguson MD [facility]06-20-2022 Consult note* Domenico Ferguson MD - 03/15/2022 4:10 PM EDT History and Physical Examination 03/15/22 4:10 PM Chief Complaint: Right total knee arthroplasty History of Present Illness: Patient is a 77 y.o. male presents for [facility] for elective right total knee arthroplastyDr. [...] mg by mouth daily. Historical Provider Glucosamine-Chondroitin 3161-3600 MG/30ML Liquid Take by mouth. Historical Provider [...] 81 mg by mouth daily. 03/04/2022 Glucosamine-Chondroitin 5375-9928 MG/30ML Liquid Take by mouth. Multiple Vitamins-Minerals [...] SW. Domenico Ferguson MD documented in [facility]* Nursing Notes - Araseli Ron RN - 03/15/2022 2:26 PM EDT Patient to OR at this time. [facility]06-20-2022 Note* Nursing Notes - Araseli Ron RN - 03/15/2022 11:57 AM EDT Patient assessment unchanged from previous. Patient ambulated to bathroom and voided. Patient denies any needs at this time. Call light in reach. [facility]* Nursing Notes - Gini Medrano RN - 02/18/2022 1:25 PM EDT 02/18/22 1324 Information Source Information Source patient Contact Information Phlebotomy Supervisor Name Gini Medrano RN Case Manager's Living [...] that he plans to return home with [facility]. The patient states that his daughter [...] to follow and assist with discharge plans. [facility]04-28-2022 History of Present illness Narrative* Luis Wang LPN - 2022 1:10 PM EDT Ortho Nurse - Established Patient Intake Room#: 1 Right knee pain of 9, no interventions, falls, or injuries, came in today with left knee pain, left knee revision 2016 Dr Bedoya Date: 2022 1:06 PM Patient: Tito Goncalves MR#: [id number] : 1945 Age: 77 y.o. Referring Physician: [...] a right total knee arthroplasty for optimal custodial management. PHYSICAL EXAM: This is an alert, [...] joint space, subchondral sclerosis, osteophyte formation, and hdam-sy-svvn contact with posterior loosebodies. He has a [...] of limb, and ultimately loss of life. manager long term care expectations, risks and general implant surv ivorship were also discussed. Despite these risks, the patient would like to proceed with surgical planning. Today, we will initiate the pre-surgical process including nasal MRSA screening, scheduling an appointment for [facility] and the potential surgical date, and reviewing [...] bilat RA (rheumatoid arthritis) Skin cancer 2013 2017,2013 [...] Swelling Sulfa Antibiotics Swelling documented in this encounterHighlands Behavioral Health SystemFoodShootr [facility] [id number] Evaluation note* Encounter Date Diagnosis Assessment Notes Treatment Notes Treatment Clinical Notes Oct, Choledocholithiasis (ICD-10 - K80.50) Oct, Pancreatic cyst (ICD -10 - K86.2) Gaylord King [employer] Other Evaluation + Plan note No data available for this section [facility] evaluation note* Diagnosis Right knee pain, unspecified chronicity- Primary Pain in prosthetic joint, sequela documented in this encounter [facility] SocialEvaluation note* Diagnosis Preop testing- Primary Preoperative examination, [...] Hyposmolality and/or hyponatremia documented in this encounter [facility] SocialEvaluation noteNo InformationNort King [employer] Other Evaluation note* Diagnosis Hx of total knee arthroplasty, right- Primary documented in this encounter [facility] Social[facility] note* Diagnosis Hx of total knee arthroplasty, right- Primary documented in this encounter [facility] SocialEvaluation noteN/ADept. of Dermatology Evaluation note* Diagnosis Hx of total knee arthroplasty, right- Primary [facility]* Diagnosis 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- Primary Age-related nuclear cataract of both eyes Dry eyes Unspecified tear film insufficiency [facility]* Diagnosis Onset Date Resolution Status Atrial fibrillation acute Chronic kidney disease acute GERD (gastroesophageal reflux disease) acute Hemopericardium acute Hypercholesterolemia acute Hypertension acute CUBA (obstructive sleep apnea) acute [facility] Work Phone: Hisaicg general Narrative - Reported* Type Description Date Medical History hyperlipidemia Medical History GERD Medical History HTN Medical History a.fib Medical History recurrent choledocholithiasis Surgical History LEFT KNEE Surgical History CHOLECYSTECTOMY 2012 Hospitalization History see above [facility] [employer] [facility] Other Hiszaot general Narrative - Reported* Type Description Date [...] stint removal 2012 Surgical History Cardio-version (A-Fib) 2013 Surgical History Cardio-version (A-Fib) 2013 Surgical History ERCP (stone removal) 2014 Surgical History ERCP w/ stone removal 10/2022 Hospitalization History see above [facility] [employer] [facility] Other History general Narrative - Reported* Type [...] Cardio-version (A-Fib) 2012 Surgical History Cardio-version (A-Fib) 2014 Surgical History ERCP (stone removal) 2014 Surgical History ERCP w/ stone removal 10/2022 Hospitalization History see above [facility] [employer] [facility] Other Hisbxoq general Narrative - Reported* Type Description Date [...] History Colonoscopy 2020 Hospitalization History see above [facility] [facility] Other Progress note No data available for this section [facility] reason for referral (narrative)* Name Reason for referral NA NA Dept. of Dermatology Reason for visit Narrative* Auth/Cert Specialty Diagnoses / Procedures Referred By Contac t Referred To Contact Diagnoses Osteoarthritis of right knee, unspecified osteoarthritis type Osteoarthritis of right knee, unspecified osteoarthritis type [M17.11] Procedures IN TOTAL KNEE ARTHROPLASTY ARTHROPLASTY KNEE TOTAL Pastor Bedoya MD [address] [phone] Referral ID Status Reason Start Date Expiration Date Visits Re quested Visits Authorized [id number] 02/01/2022 1 1 [employer] Summary Purpose Family History No Family History Records Found Relationship Condition Age at Onset Recorded Date/T rolando Not Specified Cerebral hemorrhage Unknown Malignant neoplasm of breast Unknown father Heart disease Unknown father Diabetes mellitus Unknown Heart disease Unknown Not Specified Malignant neoplasm Unknown Advance Directives No Advanced Directives Records FoundLatest Code Status on File Code Status Date Activated Date Inactivated Comments Full Code 03/15/2022 4:44 PM Latest Code Status on File Code Status Date Activated Date Inactivated Comments Full Code 03/15/2022 4:44 PM Advance Directive Response Recorded Date/ Time Advance Directives No November 04, 2021 2:26pm Reason for Referral Status Reason Specialty Diagnoses / Procedures Referred By Contact Referred To Contact New Request Diagnoses History of revision of total replacement of left knee joint Procedures XR KNEE LEFT 3 VIEWS Virginie, Azul, HEEL FINISHER-WEIGHBRIDGE OPERATOR [address] [place] [phone] Specialty Diagnoses / Procedures Referred By Contac t Referred To Contact Diagnoses Pain in prosthetic joint, sequela Procedures XR KNEE LEFT 3 VIEWS Pastor Bedoya MD [address] [place] [address] Referral ID Status Reason Start Date Expiration Date V isits Requested Visits Authorized [id number] New Request 2022 02/15/2023 1 1 Specialty Diagnoses / Procedures Referred By Contac t Referred To Contact Diagnoses Right knee pain, unspecified chronicity Procedures XR KNEE RIGHT 4+ VIEWS Pastor Bedoya MD [address] [place] [address] Referral ID Status Reason Start Date Expiration Date V isits Requested Visits Authorized [id number] New Request 01/15/2022 02/09/2023 1 1 Specialty Diagnoses / Procedures Referred By Contac t Referred To Contact Social Work Diagnoses Restless leg syndrome Stage 3a chronic kidney disease S/P total knee arthroplasty, right Paroxysmal atrial fibrillation Type 2 diabetes mellitus without complication, without long-term current use of insulin Domenico Ferguson MD [address] [place] [address] Referral ID Status Reason Start Date Expiration Date V isits Requested Visits Authorized [id number] New Request 03/16/2022 04/10/2023 1 1 Specialty Diagnoses / Procedures Referred By Contac t Referred To Contact Diagnoses Acute postoperative pain of right knee Samantha Miner [address] [place] [address] Referral ID Status Reason Start Date Expiration Date V isits Requested Visits Authorized [id number] New Request 03/15/2022 04/09/2023 1 1 Scheduling Instructions . Specialty Diagnoses / Procedures Referred By Contac t Referred To Contact Physical Therapy Diagnoses Hx of total knee arthroplasty, right Azul Rachel, HEEL FINISHER-WEIGHBRIDGE OPERATOR [address] [place] [phone] [facility] [address] [place] [address] Referral ID Status Reason Start Date Expiration Date V isits Requested Visits Authorized [id number] New Request 04/08/2022 05/03/2023 1 1 Specialty Diagnoses / Procedures Referred By Contac t Referred To Contact Diagnoses Hx of total knee arthroplasty, right Procedures XR KNEE RIGHT 3 VIEWS Azul Rachel APRN-CNP [address] [place] [address] Referral ID Status Reason Start Date Expiration Date V isits Requested Visits Authorized [id number] New Request 03/31/2022 04/25/2023 1 1 Specialty Diagnoses / Procedures Referred By Contac t Referred To Contact Diagnoses Hx of total knee arthroplasty, right Procedures XR KNEE RIGHT 3 VIEWS Pastor Bedoya MD [address] [place] [address] Referral ID Status Reason Start Date Expiration Date V isits Requested Visits Authorized [id number] New Request 07/02/2022 07/27/2023 1 1 Specialty Diagnoses / Procedures Referred By Contac t Referred To Contact Diagnoses Hx of total knee arthroplasty, right Procedures XR BONE LENGTH STUDY Pastor Bedoya MD [address] [place] [address] Referral ID Status Reason Start Date Expiration Date V isits Requested Visits Authorized [id number] New Request 07/02/2022 07/27/2023 1 1 Referral ID Status Reason Start Date Expiration Date V isits Requested Visits Authorized [id number] New Request 03/15/2023 04/08/2024 1 1 History of Present Illness * Azul Rachel APRN-CNP - 03/20/2020 11:20 AM EDT HPI: Patient [...] have reviewed the findings of the clinical integrated logistics support manager and agree with their assessment. Ortho Nurse Established Patient Intake Room#: 5 Date: 03/20/2020 11:10 AM Patient: Tito Goncalves MR#: [id number] : 1945 Age: 75 y.o. 3 yr [...] , Rfl: omeprazole [address] gonzalez, , Disp: , Rfl: Allergies: He is allergic to iodine; penicillin g; shellfish allergy; and sulfa antibiotics. * Birgit Chaparro LPN - 03/20/2020 11:20 AM EDT Ortho Nurse Established Patient Intake Room#: 5 Date: 03/20/2020 11:10 AM Patient: Tito Goncalves MR#: [id number] : 1945 Age: 75 y.o. 3 yr [...] of total replacement of left knee joint Chief Complaint and Reason for Visit Chief Complaint Amb Documentation Amb Documentation hospital follow up Reason for Visit Atrial fibrillation Chronic kidney disease GERD (gastroesophageal reflux disease) Hemopericardium Hypercholesterolemia Hypertension CUBA (obstructive sleep apnea) Additional Source Comments (unrecognized sect ion and content) No Status Records FoundNo Status Records FoundNo Status Records FoundNo Status Records FoundNo Status Records FoundNo Status Records FoundNo Status Records FoundNo Status Records FoundNo Status Records FoundNo Status Records FoundNo Status Records FoundNo Status Records Found INFORMATION SOURCE (unrecogn ized section and content) DATE CREATED AUTHOR 03/21/2018 [facility] DATE CREATED AUTHOR AUTHOR'S ORGANIZ ATION 06/15/2019 [facility] DATE CREATED AUTHOR AUTHOR'S ORGANIZ ATION 11/13/[address] [facility] DATE CREATED AUTHOR AUTHOR'S ORGANIZ ATION 03/25/2022 [facility] DATE CREATED AUTHOR AUTHOR'S ORGANIZ ATION 05/04/2022 [facility] DATE CREATED AUTHOR AUTHOR'S ORGANIZ ATION 10/04/2022 [facility] DATE CREATED AUTHOR AUTHOR'S ORGANIZ ATION 02/02/2023 [facility] DATE CREATED AUTHOR AUTHOR'S ORGANIZ ATION 03/05/2023 [facility] DATE CREATED AUTHOR AUTHOR'S ORGANIZ ATION 03/20/2023 [facility] DATE CREATED AUTHOR AUTHOR'S ORGANIZ ATION 07/12/2023 [facility] DATE CREATED AUTHOR AUTHOR'S ORGANIZ ATION 01/11/2024 [facility] EPIC DATE CREATED AUTHOR AUTHOR'S ORGANIZ ATION 02/11/2024 [facility] Reason for Visit (unrecogniz ed section and content) Reason Comments Follow-up Status Reason Specialty Diagnoses / Procedures Referred By Contact Referred To Contact New Request Diagnoses History of revision of total replacement of left knee joint Procedures XR KNEE LEFT 3 VIEWS Azul Rachel, HEEL FINISHER-WEIGHBRIDGE OPERATOR [address] [place] [address] Reason Comments Pain Specialty Diagnoses / Procedures Referred By Contac t Referred To Contact Diagnoses Pain in prosthetic joint, sequela Procedures XR KNEE LEFT 3 VIEWS Pastor Bedoya MD [address] [place] [address] Referral ID Status Reason Start Date Expiration Date V isits Requested Visits Authorized [id number] New Request 2022 02/15/2023 1 1 Specialty Diagnoses / Procedures Referred By Contac t Referred To Contact Diagnoses Right knee pain, unspecified chronicity Procedures XR KNEE RIGHT 4+ VIEWS Pastor Bedoya MD [address] [place] [address] Referral ID Status Reason Start Date Expiration Date V isits Requested Visits Authorized [id number] New Request 01/15/2022 02/09/2023 1 1 Specialty Diagnoses / Procedures Referred By Contac t Referred To Contact Diagnoses Hx of total knee arthroplasty, right Procedures XR KNEE RIGHT 3 VIEWS Azul Rachel, HEEL FINISHER-WEIGHBRIDGE OPERATOR [address] [place] [address] Referral ID Status Reason Start Date Expiration Date V isits Requested Visits Authorized [id number] New Request 03/31/2022 04/25/2023 1 1 Reason Comments Post Op Visit Specialty Diagnoses / Procedures Referred By Contac t Referred To Contact Diagnoses Hx of total knee arthroplasty, right Procedures XR KNEE RIGHT 3 VIEWS Pastor Bedoya MD [address] [place] [address] Referral ID Status Reason Start Date Expiration Date V isits Requested Visits Authorized [id number] New Request 07/02/2022 07/27/2023 1 1 Referral ID Status Reason Start Date Expiration Date V isits Requested Visits Authorized [id number] New Request 03/15/2023 04/08/2024 1 1 Reason Comments Retinal Injection Care Teams (unrecognized sec tion and content) Operational Risk Manager Relationship Specialty Start Date End Date Augustine Metz, DO [address] [place] [address] PCP - General Internal Medicine 01/24/17 Operational Risk Manager Relationship Specialty Start Date End Date Augustine Metz, DO [address] [place] [address] PCP - General Internal Medicine 01/24/17 Operational Risk Manager Relationship Specialty Start Date End Date Augustine Metz, DO [address] [place] [address] PCP - General Internal Medicine 01/24/17 Operational Risk Manager Relationship Specialty Start Date End Date Augustine Metz, DO [address] [facility] [place] [phone] PCP - General Internal Medicine 01/24/17 Operational Risk Manager Relationship Specialty Start Date End Date Augustine Metz, DO [address] [facility] [place] [address] PCP - General Internal Medicine 01/24/17 Operational Risk Manager Relationship Specialty Start Date End Date Augustine Metz, DO [address] [facility] [place] [address] PCP - General Internal Medicine 01/24/17 Operational Risk Manager Relationship Specialty Start Date End Date Augustine Metz, DO [address] [facility] [place] [address] PCP - General Internal Medicine 01/24/17 Operational Risk Manager Relationship Specialty Start Date End Date Augustine Metz [address] [facility] [place] [address] PCP - General Internal Medicine 01/24/17 Operational Risk Manager Relationship Specialty Start Date End Date IsaíasAugustine [address] [facility] [place] [address] PCP - General Internal Medicine 01/24/17 Operational Risk Manager Relationship Specialty Start Date End Date Augustine Metz MD [address] [place] [phone] PCP - General Internal Medicine 06/02/23 Operational Risk Manager Relationship Specialty Start Date End Date Augustine Metz MD [address] [place] [phone] PCP - General Internal Medicine 06/02/23 Team Status: Active Member Role Status Dates Augustine Metz DO Primary Care Provider Active Team Status: Active Member Role Status Dates Augustine Metz DO Primary Care Provider Active Start: December 16, 2023 LIBAN Graham Attending Provider Active Start : December 16, 2023 Team Status: Active Member Role Status Dates Augustine Metz DO Primary Care Provide r, Attending Provider Active Start: January 18, 2024 Team Status: Active Member Role Status Dates Augustine Metz DO Primary Care Provider Active Start: January 31, 2024 LIBAN Nick Attending Provider Active St art: January 31, 2024 Team Status: Inactive Member Role Status Dates Augustine Metz DO Primary Care Provide r, Attending Provider Active Start: January 31, 2024 End: January 31, 2024 Scheduled Active and Recently Administ ered Medications [...] Tue03/15/22 at 2000, Until Discontinued, , Post-op/Post-Proc 2105 (Given - Provider: Birgit Thakur RN) 0309 [...] blood pressure less than 1 20 mmHg 0824 (Given - Provid er: Kirsten Crawford, ROMAINE) atorvastatin (LIPITOR) tablet 10 mg 10 mg, [...] Thakur RN)0814 ($$New Bag$$ - Provider: Kirsten Crawford RN)0845 (Stopped - Provider: Regina Rios RN) [...] Post-op/Post-Proc 1450 (Given - Provid er: Kirsten Crawford, ROMAINE) docusate (COLACE) capsule 100 mg 100 mg, Oral, 2 TIMES DAILY, First dose on Tue03/15/22 at 1800, Until Discontinued, Post-op/Post-Proc 1807 (Given - Provider: Kirsten Crawford, RN) 0810 (Given - Provider: Kirsten Crawford, RN)1700 (Canceled Entry - Provider: System Discharge - Comment: Automatically canceled at discontinue of medication order) ferrous sulfate tablet 325 mg 325 mg, Oral, DAILY, First dose on Tue03/16/22 at 0900, Until Discontinued 0811 (Given - Provid er: Kirsten Crawford, RN) glucose chewable tablet CHEW 16-32 g(Linked [...] to the hypoglycemia management protocol on Ellucid: T-BA-Vzqydrgzndbo Management Protocol insulin regular (HumuLIN R;NovoLIN R) [...] mmHg 0810 (Given - Provid er: Kirsten Crawford, RN) pantoprazole (PROTONIX) tablet DR 40 mg 40 mg, Oral, DAILY EARLY EVENING, First dose on Tue03/15/22 at 1800, Until Discontinued, Indications: Inpt Stress Ulcer Prophylaxis 175 (Given - Provider: Araseli Ron RN) propafenone (RYTHMOL) tablet 150 mg 150 mg, Oral, EVERY 8 HOURS, First dose (after last modification) on Tue03/15/22 at 1800, Until Discontinued, Administer every 8 hours according with patient home schedule if possible 175 (Given - Provider: Araseli Ron RN) 0309 (Given - Provider: Birgit Thakur, RN)1448 (Given - Provider: Kirsten Crawford, RN - Comment: per pt request to [...] RN)1450 ($$New Bag$$ - Provider: Pankaj Eric APRN-PIPELINE ENGINEER)1606 (Paused - Provider: Chino Puga CRNA - Comment: Switch to gravity)1607 (Restarted - Provider: Chino Puga CRNA)1956 (Stopped - Provider: Birgit Thakur RN - [...] RN)0715 (Rate/Dose Verify - Provider: Regina Rios RN)1146 (Stopped - Provider: Regina Rios RN) PRN Medication Order 03/14/2022 03/15/2022 03/16/2022 bisacodyl (DULCOLAX) suppository 10 mg 10 mg, Rectal, DAILY NEEDED, Starting on Tue03/15/22 at 1750, Until Tue03/16/22 at 1703, constipation, Post-op/Post-Proc ceFAZolin (ANCEF) 2 g in dextrose 100 mL premix IVPB (COMPLETED) 2 g, Intravenous, Administer over 30 Minutes, INSPECTOR OF DREDGING TO PROCEDURE, 1 dose, Starting on Tue03/15/22 at 0849, Until Discontinued, Other, Pre-operative antibiotic, For 15 Minutes, Pre-op/Pre-Proc 1440 (Given - Provider: Lambert Eric, [facility]) dextrose 10% IV solution 250 mL(Linked Group [...] less than 60 mg/ml. If unresponsive call WHEEL AND CASTER REPAIRER HYDROmorphone (DILAUDID) injection 0.5 mg 0.5 mg, [...] Dominik Bedoya MD - Comment: given to [facility]) sodium phosphate w/sodium biphosphate (FLEETS) enema 1 enema 1 enema, Rectal, DAILY NEEDED, Starting on Tue03/15/22 at 1750, Until Tue03/16/22 at 1703, Refractory Constipation, use per package instructions, Post-op/Post-Proc vancomycin (VANCOCIN) injection NEEDED, Starting on Tue03/15/22 at 1443, Until Tue03/16/22 at 1703, Intra-op/Intra-Proc 1443 (Given - Provider: Dominik Bedoya MD - Comment: given to [facility]) zolpidem (AMBIEN) tablet 5 mg 5 mg, [...] refer to the hypoglycemia management protocol on Ell: [id number] Management Protocol
And dextrose 10% IV solution [...] less than 60 mg/ml. If unresponsive call WHEEL AND CASTER REPAIRER
And NOTIFY PHYSICIAN, Blood Glucose LESS THAN 70 mg/dl or greater than 400 mg/dl (CANCELED) Routine, CONTINUOUS, Starting on Tue03/15/22 at 1255, Until Specified
Who to Notify: OIL FIELD ROUSTABOUT/Physician
For all Blood Glucose LESS THAN 70 mg/dl, or greater than 400 mg/dl notify OIL FIELD ROUSTABOUT/Physician Goals (unrecognized section and content) Goals may be documented in a n alternate section FOR RECORDS PERTAINING TO PATIENTS WHO ARE [...] BE BASED ON THE PRIMARY CLINICAL RECORDS. [facility]. provides no warranty or guarantee of the accuracy or completeness of information in this document.
--- NOTE | 2024-02-16 10:30 | CA_ITS ---
Patient Name: EL TRUONG MR#: [id number] : 1945 Exam Date: 02/16/2024 Ordering Doctor: MADISON WOODARD CNP ECHOCARDIOGRAM REPORT PROCEDURE: CA ECHO LIMITED INDICATIONS: Pericardial effusion , atrial fibrillation, s/p LAAO with Amulet device COMPARISON: None. DESCRIPTION: Limited ECHOCARDIOGRAM Real-time transthoracic echocardiography with 2D and M-mode performed. QUALITY: Technical quality was good. Limited echocardiogram per physician order. 72 , 238#, BP 120/68 LEFT VENTRICLE: Normal chamber size. Mild left ventricular hypertrophy. Sigmoid septum. LV EF: Global left ventricular systolic function is normal; visually estimated ejection fraction is 55-60%. No significant wall motion abnormalities. LEFT ATRIUM: Mild dilatation. RIGHT ATRIUM: Moderate dilatation. RIGHT VENTRICLE: Mild dilatation. Normal systolic function. TRICUSPID VALVE: Normal mobility and thickness. MITRAL VALVE: Normal mobility and thickness. Mild mitral annular calcification. AORTIC VALVE: Normal trileaflet appearance. Thickened aortic valve. AORTIC ROOT: Normal diameter and appearance. PULMONIC VALVE: Not well visualized. PERICARDIUM: Anterior free space; trivial effusion versus fat pad IVC: Not well visualized. CONCLUSION: 1. Global left ventricular systolic function is normal: Visually estimated ejection fraction is 55 to 60% 2. The right ventricle is mildly enlarged with normal systolic function 3. Mildly increased left ventricular wall thickness 4. Biatrial enlargement 5. Anterior free space; trivial effusion versus fat pad Adult Echocardiography Procedure Report Left Ventricle LVEDD (3.7 - 5.6 cm): 5.57 cm LVESD (2.2 - 4.0 cm): 3.98 cm LVIVS thickness (0.6 - 1.2 cm): 1.56 cm LVPW thickness (0.5 - 1.0 cm): 1.07 cm LVOT Diameter 2.63 cm Left Atrium LA Volume Index (2D A2C): 28.21 ml/m2 Left Atrium Systolic Dimension: 4.30 cm Mitral Valve Right Ventricle Aorta AO Root Diam: 4.14 cm Aortic Valve Tricuspid Valve Pulmonic Valve Right Atrium Right Atrium Systolic Pressure: 77.93 ml, 77.93 ml Dictated by: Maggy Murphy M.D. on 02/17/2024 at 17:00 Approved by: Maggy Murphy M.D. on 02/17/2024 at 17:05
== END 2024-02-16 10:10 | disposition home or self-care (01) ==
LOC: CARD 10:09
PROVIDERS: PCP Internal Medicine; Visit Provider Nurse Practitioner Family
DX: I48.0 Paroxysmal atrial fibrillation (principal)
CPT/HCPCS: 93308

== ENCOUNTER 2024-02-27 00:27 | Outpatient (RCR) | payer MEDICARE, OTHER, SELFPAY | END 2024-03-23 10:19 | disposition home or self-care (01) | LOC: MM 00:27 | PROVIDERS: PCP Internal Medicine; Visit Provider Internal Medicine | DX: Z51.81 Encounter for therapeutic drug level monitoring (principal); Z79.01 Long term (current) use of anticoagulants ==

== ENCOUNTER 2024-02-27 10:01 | Outpatient (OUT) | payer MEDICARE, OTHER, SELFPAY ==
[2024-02-27 12:41] LABS: Estimated Average Glucose 160 mg/dL; Glycohemoglobin A1C 7.2 % (4.5-6.2)
== END 2024-02-27 10:02 | disposition home or self-care (01) ==
LOC: LAB 10:02
PROVIDERS: PCP Internal Medicine; Visit Provider Internal Medicine
DX: E11.65 Type 2 diabetes mellitus with hyperglycemia (principal)
CPT/HCPCS: 36415; 83036

== ENCOUNTER 2024-03-26 00:53 | Outpatient (RCR) | payer MEDICARE, OTHER, SELFPAY | END 2024-04-25 23:59 | disposition home or self-care (01) | LOC: MM 00:53 | PROVIDERS: PCP Internal Medicine; Visit Provider Internal Medicine | DX: Z51.81 Encounter for therapeutic drug level monitoring (principal); Z79.01 Long term (current) use of anticoagulants ==

== ENCOUNTER 2024-04-01 15:20 | Observation (INO) | payer MEDICARE, OTHER, SELFPAY ==
[2024-04-01] VITALS (59 sets, daily range): BP systolic 129–195; BP diastolic 70–106; PULSE 55–153; TEMP 36.4–36.8; O2SAT 93–99; BMI 32.5; BMI 33.2
--- OUTSIDE RECORDS SUMMARY | 2024-04-01 15:32 | XMS_ITS | CCD ---
Author Organization [facility] Care Team Providers Care Sampler And Test Preparer Name Role Phone GENE FAJARDO Admitting Unavailable GENE FAJARDO Attending Unavailable AUGUSTINE METZ Primary Care Unavailable RYAN CARDENAS Referring Unavailable Augustine Metz Primary Care Provider Augustine Metz DO Primary Care Provider [phone] Augustine Metz DO Primary Care Provider Carmen Kahn Unavailable AUGUSTINE METZ Primary Care Physician [phone] Augustine Metz DO Primary Care Provider [phone] Damari Rojas Unavailable Unavailable Alyssa, Mago Osman Delmis Referring Unavaila natasha Bui, Dr. Macario Kent Attending Unavai lable [...] Admitting Unavailable ISAÍAS, DR PEREZ Attending Unavailable SAMY, DR CARMEN Flynn Consulting Unavailable ISAÍAS, DR [...] REINECK, DR JUANJO Nuñez Consulting Unavailabl e REINMADDY, DR JUANJO Nuñez Attending Unavailabl e REINECK, [...] Care Unavailable BALL, DR PEREZ Attending Unavailable SHAIKH Tiburcio PRICE Attending Unavailable SHAIKH Tiburcio PRICE Admitting Unavailable BALL, DR PEREZ Primary Care Unavailable Ball Augustine MADDEN Primary Care Provider AZUL RACHEL Attending Unavailable VIRGINIE, AZUL Referring Unavailable BALL, AUGUSTINE Primary Care Unavailable VIRGINIE, AZUL Attending Unavailable VIRGINIE, AZUL Referring Unavailable BALL, AUGUSTINE Primary Care Unavailable VIRGINIE, AZUL Attending Unavailable VIRGINIE, AZUL Referring Unavailable BALL, AUGUSTINE Primary Care Unavailable SELF, SELF Referring Unavailable BALL, AUGUSTINE Primary Care Unavailable PASTOR BEDOYA Attending Unavailable PASTOR BEDOYA Referring Unavailable BALL, AUGUSTINE Primary Care Unavailable PASTOR BEDOYA Attending Unavailable VIRGINIE, AZUL Attending Unavailable SELF, SELF Referring Unavailable BALL, AUGUSTINE Primary Care Unavailable Ball, Augustine Primary Care Unavailable Nohemi, Colin Duncan Admitting Unavailab Colin Tong Attending Unavailab Augustine Ruby MD Primary Care Provider DO Augustine Metz Primary Care Provider [phone] MurDO Augustine vincent Attending Provider [phone] Augustine Freitas Attending Unavailable Augustine Freitas Admitting Unavailable Isaías, Augustine Primary Care Unavailable Isaías, Augustine Primary Care Unavailable Augustine Freitas Attending Unavailable Augustine Freitas Admitting Unavailable JOSE R DODD Attending Unavailable JOSE R DODD Attending Unavailable JOSE R DODD Attending Unavailable OSMAN SHAH Attending Unavailable CRHISTIN BOLTON Attending Unavailable AUGUSTINE FREITAS Attending Unavailable CHRISTIN BOLTON Referring Unavailable JOSE R DODD Attending Unavailable JOSE R DODD Attending Unavailable MURCEKAUGUSTINE Attending Unavailable MURCEKAUGUSTINE Attending Unavailable JOSE R DODD Attending Unavailable RAJESH, LIONEL Referring Unavailable RAJESH, LIONEL Referring Unavailable RAJESH, LIONEL Referring Unavailable MOUKARBEL, OLIVER Referring Unavailable RAJESH, LIONEL Referring Unavailable BRIGITTE PERRY Referring Unavailab le MOUKARBELOLIVER Referring Unavailable MOUKARBELOLIVER Referring Unavailable MOUKARBELOLIVER Referring Unavailable ELDELORES, MAGGY Attending Unavailable MADISON PAUL Referring Unavailable MOUKARBEL, OLIVER Attending Unavailable MADISON PAUL Attending Unavailable MOTERELL, OLIVER Attending Unavailable RAJESH, LIONEL Referring Unavailable MADISON PAUL Referring Unavailable OLIVER CRANE Admitting Unavailable DORI RHODES Attending Unavailable GARTH, OLIVER Referring Unavailable GARTH, OLIVER Admitting Unavailable GARTH, OLIVER Attending Unavailable Allergies Allergy Classification Reported Allergen(s) Allergy Type Date of Onset Reaction(s) Facility (16 sources) Iodine; Translations: [iodine] Drug Allergy 08-31-20 09 Unknown, Unknown Reaction [facility] Repository (7 sources) Penicillins; Translations: [PENICILLINS] Drug allergy (disorder) 08-01-19 63 Unknown Reaction, Hives [facility] Repository (7 sources) Sulfonamides (Antibiotic); Translations: [SULFA (SULFONAMIDE ANTIBIOTICS)] Drug allergy (disorder) 08-31-19 93 Swelling [facility] Repository (2 sources) Shellfish Containing Products; Translations: [Shellfish Containing Products] Food allergy (disorder) 08-31-20 09 [facility] Repository (16 sources) Iodine; Translations: [iodine] Drug Allergy 08-31-20 09 Swelling, Unknown (qualifier value), Anaphylaxis [facility] (18 sources) Penicillin G Drug Allergy 10-20-19 13 Hives [facility] (14 sources) Shellfish Propensity to adverse reactions to drug 08-31-20 09 Swelling, Other [facility] (12 sources) Sulfonamides (Antibiotic) Propensity to adverse reactions to drug 10-20-19 13 Swelling [facility] (11 sources) Penicillins (Antibiotic) Drug allergy Unknown [employer] Other (15 sources) Shrimp product Propensity to adverse reactions 01-31-20 24 Unknown, Unknown Reaction [facility] (11 sources) Sulfonamides (Antibiotic) Drug allergy Unknown [employer] Other (5 sources) Penicillin; Translations: [penicillin] Drug Allergy Unknown (qualifier value) [facility] (1 source) Sulfonamides (Antibiotic); Translations: [sulfa drugs] Drug allergy Unknown (qualifier value) [facility] (1 source) No Alert Propensity to adverse reactions to drug 09-14-20 [facility] (1 source) Penicillin Drug Allergy 10-01-19 [facility] (1 source) Propensity to adverse reactions to drug 10-01-19 23 [facility] (1 source) Iodine Drug Allergy 08-30-20 13 [facility] Repository (1 source) Shellfish Drug allergy (disorder) 08-30-20 13 [facility] Repository (4 sources) sulfADIAZINE Drug Allergy Unknown [facility] [employer] Other (6 sources) Substance with sulfonamide structure and antibacterial mechanism of action (substance) Drug allergy 08-31-19 93 Rash, Swelling [facility] [employer] Other (1 source) sulfa drug; Translations: [sulfa drug] Propensity to adverse reactions to drug (disorder) [facility] Repository (2 sources) Penicillin V Drug Allergy 01-23-20 23 [facility] (2 sources) Penicillins Drug Allergy 08-01-19 63 Hives [facility] (2 sources) Other Allergy to substance 06-30-20 23 Other [facility] (2 sources) Shellfish-Derived Products Drug Allergy 10-20-19 13 Swelling [facility] (5 sources) Shellfish; Translations: [shellfish derived] Allergy to substance 01-31-20 24 Unknown Reaction [facility] (1 source) Iodine Drug Allergy 02-27-20 24 [facility] Repository (1 source) Penicillins Drug allergy (disorder) 02-27-20 [facility] Repository (1 source) Shrimp product Drug allergy (disorder) 02-27-20 [facility] Repository (1 source) Sulfonamides (Antibiotic) Drug allergy (disorder) 02-27-20 [facility] Repository Medications Current Medications Medication Drug Class(es) Dates Sig (Normalized) Sig (Original) Accu-Chek Prachi Plus - (9 sources) Accu-Chek Prachi Plus - USE TO TEST BLOOD SUGAR DAILY for 50 Active acetaminophen 325 mg oral tablet (20 sources) Start: 03-15-2022 take 2 tablets by [...] Status: Ordered take 2 tablets by mo [facility] every eight hours Tylenol 8 Hour 650 MG 2 tablets as needed Orally every 8 hrs Active amiodarone hydrochloride 200 mg oral tablet (4 sources) Antiarrhythmic Start: 01-31-2024 take 200 mg by [...] Aggregation Inhibitor, Nonsteroidal Anti-inflammatory Drug Start: 10-01-2022 [id number] Medication aspirin aspirin 300 mg 10/01/2022 Active (Outside) Start: 11-10-2021 take 1 tablet by wendy once daily Aspirin (Aspirin Childrens) 81 mg [...] take 10 mg by mouth once daily at bedtime Atorvastatin Active 10 MG PO Daily at bedtime November 10, 2021 1:00am benazepril hydrochloride 20 [...] 2024 8:48am take 1 tablet by wendy every twelve hours Carvedilol 12.5 MG 1 [...] mg oral tablet (20 sources) Benzodiazepine Start: 03-15-2022 End: 03-16-2022 take 1 tablet [...] 10 mL of water before and after. &nbsp ; Hold if decreased respiratory drive or mental status after anesthesia Start: 11-10-2021 take 1 mg by mouth once daily Clonazepam Active 1 MG PO Daily November 10, 2021 1:00am Start: 09-24-2019 take 1 tablet by wendy th three times daily clonazepam 1 mg Tab mg tab(s), Oral, TID, Refills(s) 0 Start Date: 09/24/19 Status: Ordered Start: 01-16-2018 End: 2022 clonazePAM 0.5 MG Tab tablet 1 mg. 0 01/16/2018 2022 Discontinued (Medication Reconciliation (suppress cancel msg)) clopidogrel 75 mg oral tablet (4 sources) P2Y12 Platelet Inhibitor Start: 01-31-2024 take 1 tablet by mouth once daily Clopidogrel (Plavix) 75 mg tablet Active 75 MG PO Daily January 31, 2024 12:00am On Hold: Resume on 02/26/24. docusate sodium 100 mg oral capsule (8 [...] Refills(s) 0 Start Date: 09/24/19 Status: Ordered Glucosamine-Chondr oit-Vit C-Mn (Glucosamine-Chond roitin) capsule (2 sources) Glucosamine-Jordan d roit-Vit C-Mn (Glucosamine-Jordan droitin) capsule Take by mouth. 0 Active Multi Vitamin+ (1 source) Start: 09-24-2019 Multi Vitamin+ Refill(s) 0 Start Date: 09/24/19 Status: Ordered Multiple Vitamins-Minerals (PRESERVISION AREDS PO) (10 sources) Multiple Vitamins-Minerals (PRESERVISION AREDS PO) Take by mouth. 0 Active Multivitamin-House Manager als-Lutein (A Thru Z High Potency) tablet (4 sources) Start: 11-10-2021 take 1 tablet by mouth twice daily Multivitamin-Mine rals-Lutein (A Thru Z High Potency) tablet Active 1 TAB PO Twice daily November 10, 2021 1:00am Start: 11-10-2021 take 1 tablet by wendy th once daily Wlkdekadurac-Rythubyd-Xhuxnk (A Thru Z H igh Potency) tablet Active 1 TAB PO Daily November 10, 2021 1:00am omeprazole 20 mg delayed release oral capsule (20 sources) Proton Pump Inhibitor Start: 12-27-2017 take 20 mg by mouth once daily Omeprazole Active 20 MG PO Daily November 10, 2021 1:00am primidone 250 mg oral tablet (1 source) Anti-epileptic Agent Start: 08-21-2022 [id number] Medication omeprazole 20 mg capsule,delayed release omeprazole 20 mg capsule,delayed release 20 mg 08/21/2022 Active (Outside) therapeutic multivitamin-minera ls tablet (7 sources) Start: 03-15-2022 take 1 tablet by mouth at bedtime therapeutic multivitamin-sock lining examiner als tablet Take 1 tablet by mouth at [...] (SENOKOT-S) 8.6-50 MG per tablet 2 tablet doxycycline hyclate 100 mg oral capsule (4 sources) Tetracycline-clas s Drug Start: 01-31-20 End: 02-16-20 take 100 mg by mouth twice daily Doxycycline Hyclate Discontinued 100 MG PO Twice daily 08 04January 31, 2024 12:00am February 16, 2024 4:13pm ferrous sulfate 325 mg oral tablet (5 [...] Until Discontinued, Indications: Inpt Stress Ulcer Prophylaxis propafenone hydrochloride 150 mg oral tablet (20 sources) Antiarrhythmic Start: 09-24-2019 End: 01-31-2024 take 150 mg by mouth every eight hours Propafenone Discontinued 150 MG PO Q8H November 10, 2021 1:00am January 31, 2024 3:32pm 200 ml ropivacaine hydrochloride 2 mg/ml injection [...] 31, 2024 3:31pm 7.5mg on Sat. 5mg M-I-K-W-Th-F Start: 01-02-2018 warfarin 5 MG tablet 1 [...] neuraxis; Translations: [Nontraumatic subarachnoid hemorrhage, unspecified] Chronic Biliary tract disease (15 sources) Obstruction of bile duct; Translations: [Obstruction of bile duct] 09-07-2023 Chronic Biliary tract disease (18 sources) Gallstone; Translations: [Calculus of gallbladder without [...] [Anemia, unspecified] Episodic Diabetes mellitus with complications (18 sources) Hyperglycemia due to type 2 diabetes [...] STEPS INIT] Onset: 3 Episodic Esophageal disorders (18 sources) Gastroesophageal reflux disease without esophagitis; Translations: [Gastro-esophageal reflux disease without esophagitis] Onset: 2 Chronic Essential hypertension (20 sources) Hypertensive disorder; Translations: [Essential hypertension] Onset: 4 09-24-2019 Chronic Glaucoma (1 source) Glaucoma 09-24-2019 Chronic Heart valve disorders (11 sources) Non-rheumatic mitral regurgitation ; Translations: [Nonrheumatic mitral (valve) insufficiency] Chronic Hyperplasia of prostate (3 sources) Benign [...] sources) Long-term current use of anticoagulant; Translations: [snf (current) use of anticoagulants] Episodic Other aftercare (2 sources) snf (current) use of anticoagulants; Translations: [TAR 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 CURRNT USE ANTICOAGULANTS] Onset: 3 Episodic Other aftercare (5 sources) Encounter for therapeutic drug level monitoring; Translations: [ENC THERAPEUTC DRUG LEVL MONITORING] Onset: 3 Episodic Other aftercare (1 source) snf (current) 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; Translations: [MCC CURRENT USE OF ASPIRIN] Onset: 3 Episodic Other aftercare (1 source) Other fci (current) drug therapy; Translations: [OTH TAR 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 CURRENT DRUG THERAPY] Onset: 3 Episodic Other aftercare (1 source) Encounter for other plastic and reconstructive surgery following medical procedure or healed injury; Translations: [Encounter for other plastic and reconstructive surgery following medical procedure or healed injury] Onset: 4 Episodic Other circulatory disease (2 sources) Presence of other cardiac implants and grafts; Translations: [Presence of other cardiac implants and grafts] Onset: 4 Chronic Other connective tissue disease (8 sources) History [...] sources) Repeated falls; Translations: [Repeated falls] Onset: 4 Episodic Other diseases of kidney and ureters [...] mass index (BMI) 36.0-36.9, adult] Chronic Other nutritional; endocrine; and metabolic disorders (3 sources) Obesity; Translations: [Obesity, unspecified] 01-31-2024 Chronic Other nutritional; endocrine; and metabolic disorders (4 sources) Obesity, unspecified; Translations: [Obesity, unspecified] 01-31-2024 Chronic Other screening for suspected conditions (not [...] caused by tuberculosis or sexually transmitted disease) (8 sources) Hemopericardium; Translations: [Hemopericardium, not elsewhere classified] 01-30-2024 Episodic Residual codes; unclassified (9 sources) Periodic limb movement disorder; Translations: [Periodic limb movement disorder] Chronic Residual codes; unclassified (13 sources) Obstructive sleep apnea syndrome; Translations: [Obstructive sleep apnea (adult) (pediatric)] 01-30-2024 Chronic Residual codes; unclassified (8 sources) Obstructive sleep apnea (adult) (pediatric); Translations: [Obstructive sleep apnea (adult)(pediatric)] Chronic Residual codes; unclassified (1 source) Sleep [...] Other Gram-negative sepsis; Translations: [Enterobacter sepsis] Episodic Skin and subcutaneous tissue infections (3 sources) Cellulitis of right upper limb; Translations: [Cellulitis and abscess of upper arm and forearm] 01-31-2024 Episodic Spondylosis; intervertebral disc disorders; other back [...] Value Interpretation Reference Range Facility Office Visiton 03-22-2024 Follow-up visit [id number] Amina Goncalves 1945 M Date Provider Department Center 03/22/2024 OLIVER RUELAS Amilcar Pamela Family History Problem Relation Age of Onset Cancer Mother Heart attack Other Family Status - Relation Status Age at Mother Other Level of Service:[id number] [place] OFFICE/OUTPATIENT ESTABLISHED LOW MDM 20 MIN Normal [facility] HPon 03-16-2024 History Of Present I llness Tito Goncalves is a 79 y.o. male presenting with Paroxysmal atrial fibrillation. on 01/24/2024 he underwent left atrial appendage closure using a 28 mm Amplatzer amulet device. The day after the procedure he developed a pericardial effusion and underwent pericardiocentesis. He did well. He presents today for the 6-week follow-up transesophageal echocardiogram per protocol. Past Medical History He has a past [...] containing products, and Sulfa (sulfonamide antibiotics) Medications (Not in a hospital admission) Transesophageal echo (JESSICA) 01/24/2024 [id number] Final Review of Systems Constitutional: Positive for fatigue. Cardiovascular: Positive for leg swelling. Physical Exam Constitutional: Appearance: He is well-developed. He is not ill-appearing. HENT: Head: Normocephalic [...] General: No swelling. Cervical back: Neck supple. Right lower le+ Pitting Edema present. Left lower le+ Pitting Edema present. Skin: General: Skin is warm and dry. Neurological: General: No focal deficit present. Mental Status: He is alert and oriented to person, place, and time. Psychiatric: Mood and Affect: Mood normal. Behavior: Behavior is cooperative. Judgment: Judgment normal. Last Recorded Vitals Blood pressure 148/78, pulse 56, resp. rate 17, SpO2 99 %. Relevant Results TTE 01/29/2024: Left Ventricle: Global left ventricular systolic function is normal. No regional wall motion abnormality. Right Ventricle: The right ventricle appears normal in size. Right ventricular systolic function appears normal. Left Atrium: The left atrium appears normal in size. Pericardium: Anterior free space is seen; trivial effusion versus fat pad. ARLETTE closure 01/24/2024: Successful left atrial appendage closure using a 28 mm Amplatzer Amulet device performed under fluoroscopic and transesophageal echocardiography guidance. Assessment/Plan Active Problems: Paroxysmal atrial fibrillation (CMS/HCC) Presence of Amulet left atrial appendage closure device We will proceed with the 45-day follow-up JESSICA for assessment of left atrial appendage closure per protocol. Normal [facility] NURSNOTEon 03-16-2024 NURSNOTE Bedside swallow stud y passed. Normal [facility] NURSNOTE RN educated pt on d/ c instructions. RN encouraged pt to voice any questions or concerns. Pt verbalizes no questions or concerns at this time. Normal [facility] Capillary blood glucose winifred urement by glucometer (mass/volume)Ordered By: Augustine Freitas on 02-24-2024 Glucose [Mass/Vol] 124 mg/dL Normal [facility] Comment on above: Random Glucose Refer ence Range is dependent on time and content of last meal. Glucose of more than 200 mg/dL in a nonstressed, ambulatory subject supports the diagnosis of Diabetes Mellitus. Result Comment: [facility] Glucose Reference Range is dependent on time and content of last meal. Glucose of more than 200 mg/dL in a nonstressed, ambulatory subject supports the diagnosis of Diabetes Mellitus. Performed By: #### G LULS #### Point of Care testing , Glucose Poct Glucometerson 0 02-24-2024 Commemt1 Glu2: Cleaned Meter Normal [facility] Comment on above: Result Comment: PERF ORMED BY: [place] [address] PATHOLOGIST LEAD CLINICAL RESEARCH COORDINATOR RICKY STRANGE M.D. Performed By: #### G LULS #### Point of Care testing , No Panel InformationOrdered By: Augustine Freitas on 02-24-2024 Bedside Glucose Comment Glu2: cleaned meter [facility] 36on 02-16-2024 36 There are pictures i n media Normal [facility] ECG 12 lead ECGon 02-16-2024 ECG 12 lead ECG [facility] [place] [address] [place], [place] [id number] Electrocardiograph Report Signed Patient: Tito Goncalves MR#: [id number] 70 : 1945 Acct:[id number] Age/Sex: 79 / M ADM Date: 02/16/24 Loc: Room: Type: [facility] Attending Dr: Augustine Freitas DO Ordering Provider: Augustine Freitas DO Date of Service: 02/16/24 ECG/ECG 12 lead ECG: pst Copies to: Test Reason : Blood Pressure : / mmHG Vent. Rate : 062 BPM Atrial Rate : 062 BPM P-R Int : 176 ms QRS Dur : 090 ms QT Int : 444 ms P-R-T Axes : 030 018 099 degrees QTc Int : 450 ms Normal sinus rhythm Nonspecific T wave abnormality Confirmed by Viviane Herman ([id number]) on 02/17/2024 12:43:51 PM Referred By: JAMAR Electronically Signed By:Viviane Herman Transcribed By: MUS Signed By Viviane Herman MD 4 1243 Normal [facility] Office Visiton 02-09-2024 Follow-up visit [id number] Amina Goncalves 1945 M Date Provider Department Center 02/09/2024 Daily-MADISON PAUL CARD Amilcar Hos Family History Problem Relation Age of Onset Cancer Mother Heart attack Other Family Status - Relation Status Age at Mother Other Level of Service:[id number] LA OFFICE/OUTPATIENT ESTABLISHED LOW MDM 20 MIN Reason for Visit and Comments: Atrial Fibrillation [80] - S/p LAAO with Amulet device Normal [facility] 30on 01-29-2024 30 The patient [...] Goal: Maintains hematologic stability Outcome: Progressing Normal [facility] BASIC METABOLIC PANELon 05-0 Anion gap [Moles/Vol] 11 mmol/L Normal 7-20 [facility] Comment on above: Performed By: #### L AB15 #### [facility] [[email or web address] LAB (BEAKER) [address] [place] [address] Calcium [Mass/Vol] 8.0 mg/dL Low 8.6-10.3 [facility] Comment on above: Performed By: #### L AB15 #### [facility] [[email or web address] LAB (BEAKER) [address] [place] [address] Chloride [Moles/Vol] 109 mmol/L High 98-107 [facility] Comment on above: Performed By: #### L AB15 #### [facility] [[email or web address] LAB (BEAKER) [address] [place] [address] CO2 [Moles/Vol] 24 mmol/L Normal 21-31 [facility] Comment on above: Performed By: #### L AB15 #### [facility] [[email or web address]] LAB (BEAKER) [address] [place] [address] Creatinine [Mass/Vol] 1.17 mg/dL Normal 0.70-1.30 [facility] Comment on above: Performed By: #### L AB15 #### [facility] [[email or web address]] LAB (BEAKER) [address] [place] [address] GLOMERULAR FILTRATION RATE ML/MIN/1.73 SQ M.PREDICTED 63.8 mL/min/1.73m*2 Normal >60.0 [facility] Comment on above: Result Comment: [facility]???s estimated glomerular filtration rate (eGFR) [...] of individuals. Performed By: #### L AB15 #### [facility] [[email or web address]] LAB ([facility]) [address] [facility] [place] [address] Glucose [Mass/Vol] 125 mg/dL High 70-100 [facility] Comment on above: Performed By: #### L AB15 #### [facility] [[email or web address] LAB ([facility]) [address] [facility] [place] [place] [address] Potassium [Moles/Vol] 3.6 mmol/L Normal 3.5-5.1 [facility] Comment on above: Performed By: #### L AB15 #### [facility] [[email or web address] LAB ([facility]) [address] [facility] [place] [address] Sodium [Moles/Vol] 140 mmol/L Normal 136-145 [facility] Comment on above: Performed By: #### L AB15 #### [facility] [[email or web address] LAB ([facility]) [address] [facility] [place] [address] Urea nitrogen [Mass/Vol] 22 mg/dL Normal 7-25 [facility] Comment on above: Performed By: #### L AB15 #### [facility] [[email or web address] LAB ([facility]) [address] [facility] [place] [address] UREA NITROGEN/CREATININE (MASS RATIO) IN SER/PLAS 18.8 Normal [facility] Comment on above: Performed By: #### L AB15 #### [facility] [[email or web address] LAB ([facility]) [address] [facility] [address] CBCon 01-29-2024 Erythrocyte distribution width (RBC) [Ratio] 14.6 % Normal 11.5-15.0 [facility] Comment on above: Performed By: #### L [id number] #### [facility] [[email or web address] [address] [place] [address] ERYTHROCYTE MEAN CORPUSCULAR HEMOGLOBIN CONCENTRATION (G/DL) BY AUTOMATED 32.8 g/dL Normal 32.0-35.0 [facility] Comment on above: Performed By: #### L [id number] #### [facility] [[email or web address] LAB ([facility]) [address] [place] [address] Hematocrit (Bld) [Volume fraction] 30.5 % Low 39.0-55.0 [facility] Comment on above: Performed By: #### L [id number] #### [email or web address] [address] [place] [address] Hemoglobin (Bld) [Mass/Vol] 10.0 g/dL Low 13.0-17.0 [facility] Comment on above: Performed By: #### L [id number] #### [facility] [[email or web address] LAB ([facility]) [address] [place] [address] MCH (RBC) [Entitic mass] 29.1 pg Normal 27.0-33.0 [facility] Comment on above: Performed By: #### L [id number] #### [facility] [[email or web address] LAB (BEAKER) [address] [place] [address] MCV (RBC) [Entitic vol] 88.7 fL Normal 82.0-98.0 [facility] Comment on above: Performed By: #### L [id number] #### [email or web address] [address] [place] [address] PLATELETS (10*3/UL) IN BLOOD AUTOMATED COUNT 151 10*3/uL Normal 150-400 [facility] Comment on above: Performed By: #### L [id number] #### [facility] [[email or web address] LAB (BEAKER) [address] [place] [address] RBC (Bld) [#/Vol] 3.44 10*6/uL Low 4.20-5.70 [facility] Comment on above: Performed By: #### L [id number] #### [facility] [[email or web address] LAB ([facility]) [address] [place] [address] WBC (Bld) [#/Vol] 6.43 10*3/uL Normal 4.00-10.60 [facility] Comment on above: Performed By: #### L [id number] #### [facility] [[email or web address] LAB ([facility]) [address] [place] [address] HEMOGLOBIN A1Con 01-29-2024 Glucose [Mass/Vol] 163 mg/dL Normal [facility] Comment on above: Performed By: #### L [id number] #### [facility] [[email or web address] LAB ([facility]) [address] [place] [address] HbA1c (Bld) [Mass fraction] 7.3 % High 4.0-6.0 [facility] Comment on above: Performed By: #### L [id number] #### [facility] [[email or web address] LAB ([facility]) [address] [place] [address] POCT GLUCOSE METER UNSOLICIT ED RESULTSon 01-29-2024 Glucose [Mass/Vol] 218 mg/dL High 70-105 [facility] Comment on above: Order Comment: Waive d Testing in the ED is performed under the ED CLIA certificate #[id number]. Result Comment: [email or web address] Performed By: #### L [id number] ####[facility] [[email or web address] LAB ([facility])[address] [place] [address] Glucose [Mass/Vol] 138 mg/dL High 70-105 [facility] Comment on above: Order Comment: Waive d Testing in the ED is performed under the ED CLIA certificate #[id number]. Result Comment: [email or web address] Performed By: #### L [id number] #### [facility] [[email or web address] LAB ([facility]) [address] [place] [address] 30on 01-28-2024 30 The patient is Moder [...] fall injury Outcome: Progressing Flowsheets (Taken 01/28/2024 1357) Free from fall injury: Assess patient frequently for physical needs Identify cognitive and physical deficits and behaviors that affect risk of falls [place] fall precautions as indicated by assessment Problem: [...] Goal: Maintains hematologic stability Outcome: Progressing Normal [facility] BASIC METABOLIC PANELon 05-0 Anion gap [Moles/Vol] 12 mmol/L Normal 7-20 [facility] Comment on above: Performed By: #### L [id number] ####[facility] LAB (BEAKER)[address] [place] [address] Calcium [Mass/Vol] 7.7 mg/dL Low 8.6-10.3 [facility] Comment on above: Performed By: #### L [id number] ####[facility] [[email or web address] LAB (BEAKER)[address] [place] [address] Chloride [Moles/Vol] 108 mmol/L High 98-107 [facility] Comment on above: Performed By: #### L [id number] ####[facility] [[email or web address] LAB (BEAKER)[address] [place] [address] CO2 [Moles/Vol] 21 mmol/L Normal 21-31 [facility] Comment on above: Performed By: #### L [id number] ####[facility] [[email or web address] LAB (BEAKER)[address] [place] [address] Creatinine [Mass/Vol] 1.16 mg/dL Normal 0.70-1.30 [facility] Comment on above: Performed By: #### L [id number] ####[facility] [[email or web address]] LAB (BEAKER)[address] [place] [address] GLOMERULAR FILTRATION RATE ML/MIN/1.73 SQ M.PREDICTED 64.5 mL/min/1.73m*2 Normal >60.0 [facility] Comment on above: Result Comment: The [facility]???s estimated glomerular filtration rate (eGFR) [...] of individuals. Performed By: #### L [id number] ####[facility] [[email or web address] LAB ([facility])[address] [place] [address] Glucose [Mass/Vol] 143 mg/dL High 70-100 [facility] Comment on above: Performed By: #### L [id number] ####[facility] [[email or web address] LAB ([facility])[address] [place] [address] Potassium [Moles/Vol] 3.3 mmol/L Low 3.5-5.1 [facility] Comment on above: Performed By: #### L [id number] ####[facility] [[email or web address] LAB ([facility])[address] [place] [address] Sodium [Moles/Vol] 138 mmol/L Normal 136-145 [facility] Comment on above: Performed By: #### L [id number] ####[facility] [[email or web address] LAB ([facility])[address] [place] [address] Urea nitrogen [Mass/Vol] 27 mg/dL High 7-25 [facility] Comment on above: Performed By: #### L [id number] ####[facility] [[email or web address] LAB ([facility])[address] [place] [address] UREA NITROGEN/CREATININE (MASS RATIO) IN SER/PLAS 23.3 Normal [facility] Comment on above: Performed By: #### L [id number] ####[facility] [[email or web address] LAB ([facility])[address] [place] [address] CBCon 01-28-2024 Erythrocyte distribution width (RBC) [Ratio] 14.4 % Normal 11.5-15.0 [facility] Comment on above: Performed By: #### L [id number] #### [facility] [[email or web address] LAB ([facility]) [address] [place] [address] ERYTHROCYTE MEAN CORPUSCULAR HEMOGLOBIN CONCENTRATION (G/DL) BY AUTOMATED 32.8 g/dL Normal 32.0-35.0 [facility] Comment on above: Performed By: #### L [id number] #### [facility] [[email or web address] [address] [place] [address] Hematocrit (Bld) [Volume fraction] 31.4 % Low 39.0-55.0 [facility] Comment on above: Performed By: #### L [id number] #### [facility] [[email or web address] [address] [place] [address] Hemoglobin (Bld) [Mass/Vol] 10.3 g/dL Low 13.0-17.0 [facility] Comment on above: Performed By: #### L [id number] #### [facility] [[email or web address] [address] [place] [address] MCH (RBC) [Entitic mass] 29.0 pg Normal 27.0-33.0 [facility] Comment on above: Performed By: #### L [id number] #### [facility] [[email or web address] [address] [place] [address] MCV (RBC) [Entitic vol] 88.5 fL Normal 82.0-98.0 [facility] Comment on above: Performed By: #### L [id number] #### [facility] [[email or web address] LAB ([facility]) [address] [place] [address] PLATELETS (10*3/UL) IN BLOOD AUTOMATED COUNT 134 10*3/uL Low 150-400 [facility] Comment on above: Performed By: #### L [id number] #### [facility] [[email or web address] LAB ([facility]) [address] [place] [address] RBC (Bld) [#/Vol] 3.55 10*6/uL Low 4.20-5.70 [facility] Comment on above: Performed By: #### L [id number] #### [facility] [[email or web address] [address] [place] [address] WBC (Bld) [#/Vol] 6.52 10*3/uL Normal 4.00-10.60 [facility] Comment on above: Performed By: #### L [id number] #### [facility] [[email or web address] [address] [place] [address] MAGNESIUMon 01-28-2024 Magnesium [Mass/Vol] 1.8 mg/dL Low 1.9-2.7 [facility] Comment on above: Performed By: #### L [id number] ####[facility] [[email or web address] LAB ([facility])[address] [place] [address] PHOSPHORUSon 01-28-2024 Magnesium [Mass/Vol] 2.5 mg/dL Normal 2.5-5.0 [facility] Comment on above: Performed By: #### L [id number] ####[facility] [[email or web address] LAB ([facility])[address] [place] [address] POCT GLUCOSE METER UNSOLICIT ED RESULTSon 01-28-2024 Glucose [Mass/Vol] 258 mg/dL High 70-105 [facility] Comment on above: Order Comment: Waive d Testing in the ED is performed under the ED CLIA certificate #[id number]. Result Comment: [email or web address] Performed By: #### L [id number] #### [facility] [[email or web address] LAB ([facility]) [address] [place] [address] Glucose [Mass/Vol] 133 mg/dL High 70-105 [facility] Comment on above: Order Comment: Waive d Testing in the ED is performed under the ED CLIA certificate #[id number]. Result Comment: [email or web address] Performed By: #### L [id number] ####[facility] [[email or web address] LAB ([facility])[address] [place] [address] Glucose [Mass/Vol] 260 mg/dL High 70-105 [facility] Comment on above: Order Comment: Waive d Testing in the ED is performed under the ED CLIA certificate #[id number]. Result Comment: [email or web address] Performed By: #### L [id number] ####[facility] [[email or web address]] LAB ([facility])[address] [place] [address] Glucose [Mass/Vol] 140 mg/dL High 70-105 [facility] Comment on above: Order Comment: Waive d Testing in the ED is performed under the ED CLIA certificate #[id number]. Result Comment: [email or web address] Performed By: #### L [id number] #### [facility] LAB (BEAKER) [address] [place] [address] 30on 01-27-2024 30 Daily Case Managemen t Update Multidisciplinary rounds have been completed. 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 Pericardial drain remains in place. On amiodarone gtt. Plan to discharge home when medically cleared. Diet: Dietary Orders (From admission, onward) Start Ordered 01/26/24 1247 Special Kitchen Request Once Comments: Chicken noodle soup Fruit cup Diet coke Tilapia (plain) Paw Paw cake 01/26/24 1246 01/26/24 1246 Regular Diet [...] Answer: eval and treat 01/26/24 1241 Normal [facility] 30 The patient is Moder [...] and hemodynamic stability Outcome: Progressing Flowsheets (Taken 01/27/2024 1646) Maintains optimal cardiac output and hemodynamic stability: Monitor blood pressure and heart rate Monitor urine output and notify Licensed Independent Practitioner for values outside of normal range Assess for signs of decreased cardiac output Goal: Absence of cardiac dysrhythmias or at baseline Outcome: Progressing Flowsheets (Taken 01/27/2024 1646) Absence of cardiac dysrhythmias or at baseline: Monitor cardiac rate and rhythm Assess for signs of decreased cardiac output Administer antiarrhythmia medication and electrolyte replacement as ordered Normal [facility] BASIC METABOLIC PANELon 05-0 Anion gap [Moles/Vol] 11 mmol/L Normal 7-20 [facility] Comment on above: Performed By: #### L [id number] ####[facility] LAB (BEAKER)[address] [place] [address] Calcium [Mass/Vol] 7.9 mg/dL Low 8.6-10.3 [facility] Comment on above: Performed By: #### L [id number] ####[facility] [[email or web address]] LAB (BEAKER)[address] [place] [address] Chloride [Moles/Vol] 108 mmol/L High 98-107 [facility] Comment on above: Performed By: #### L [id number] ####[facility] [[email or web address] LAB (BEAKER)[address] [place] [address] CO2 [Moles/Vol] 22 mmol/L Normal 21-31 [facility] Comment on above: Performed By: #### L [id number] ####[facility] LAB (BEAKER)[address] [place] [address] Creatinine [Mass/Vol] 1.31 mg/dL High 0.70-1.30 [facility] Comment on above: Performed By: #### L [id number] ####[facility] [[email or web address] LAB (BEAKER)[address] [place] [address] GLOMERULAR FILTRATION RATE ML/MIN/1.73 SQ M.PREDICTED 55.7 mL/min/1.73m*2 Low >60.0 [facility] Comment on above: Result Comment: [facility]???s estimated glomerular filtration rate (eGFR) [...] of individuals. Performed By: #### L [id number] ####[facility] [[email or web address] ([facility] [place] [address] Glucose [Mass/Vol] 154 mg/dL High 70-100 [facility] Comment on above: Performed By: #### L [id number] ####[facility] [[email or web address] ([facility] [place] [address] Potassium [Moles/Vol] 3.6 mmol/L Normal 3.5-5.1 [facility] Comment on above: Performed By: #### L [id number] ####[facility] [[email or web address] LAB ([facility])[address] [place] [address] Sodium [Moles/Vol] 137 mmol/L Normal 136-145 [facility] Comment on above: Performed By: #### L [id number] ####[facility] [[email or web address] ([facility] [place] [address] Urea nitrogen [Mass/Vol] 30 mg/dL High 7-25 [facility] Comment on above: Performed By: #### L [id number] ####[facility] [[email or web address] ([facility] [place] [address] UREA NITROGEN/CREATININE (MASS RATIO) IN SER/PLAS 22.9 Normal [facility] Comment on above: Performed By: #### L [id number] ####[email or web address] ([facility] [place] [address] CBCon 01-27-2024 Erythrocyte distribution width (RBC) [Ratio] 14.5 % Normal 11.5-15.0 [facility] Comment on above: Performed By: #### L [id number] ####[facility] [[email or web address] ([facility] [place] [address] ERYTHROCYTE MEAN CORPUSCULAR HEMOGLOBIN CONCENTRATION (G/DL) BY AUTOMATED 32.2 g/dL Normal 32.0-35.0 [facility] Comment on above: Performed By: #### L [id number] ####[facility] [[email or web address] ([facility] [place] [address] Hematocrit (Bld) [Volume fraction] 31.4 % Low 39.0-55.0 [facility] Comment on above: Performed By: #### L [id number] ####[facility] [[email or web address] ([facility] [place] [address] Hemoglobin (Bld) [Mass/Vol] 10.1 g/dL Low 13.0-17.0 [facility] Comment on above: Performed By: #### L [id number] ####[email or web address] ([facility] [place] [address] MCH (RBC) [Entitic mass] 29.0 pg Normal 27.0-33.0 [facility] Comment on above: Performed By: #### L [id number] ####[email or web address] ([facility] [place] [address] MCV (RBC) [Entitic vol] 90.2 fL Normal 82.0-98.0 [facility] Comment on above: Performed By: #### L [id number] ####[email or web address] ([facility] [place] [address] PLATELETS (10*3/UL) IN BLOOD AUTOMATED COUNT 134 10*3/uL Low 150-400 [facility] Comment on above: Performed By: #### L [id number] ####[email or web address] ([facility] [place] [address] RBC (Bld) [#/Vol] 3.48 10*6/uL Low 4.20-5.70 [facility] Comment on above: Performed By: #### L [id number] ####[facility] [[email or web address] LAB (BEAKER)[address] [place] [address] WBC (Bld) [#/Vol] 8.70 10*3/uL Normal 4.00-10.60 [facility] Comment on above: Performed By: #### L [id number] ####[facility] [[email or web address] LAB (BEAKER)[address] [place] [address] MAGNESIUMon 01-27-2024 Magnesium [Mass/Vol] 2.0 mg/dL Normal 1.9-2.7 [facility] Comment on above: Performed By: #### L [id number] #### [facility] [[email or web address] LAB (BEAKER) [address] [place] [address] NURSNOTEon 01-27-2024 NURSNOTE Patient Name: Tito Goncalves [...] 118/66 Pulse: 70 65 67 73 Resp: 11 17 21 Temp: 36.4 ???C (97.5 ???F) 36.5 [...] voiced no concerns at this time. The specification writer urged the primary RN to call the rapid team if any concerns arise overnight. Vic Euceda, ROMAINE Rapid Response Team Nurse [phone] 01/27/2024 9:04 PM Normal [facility] NURSNOTE Patient Name: Tito Goncalves : 1945 Primary Care Physician: Augustine Metz MD Admission Date: 01/24/2024 RAPID RESPONSE TEAM ICU TRANSFER FOLLOW-UP NOTE SUBJECTIVE / OBJECTIVE: Follow-up for previous transfer out of the ICU notification for 01/26/2024 at 1627. ASSESSMENT / INTERVENTIONS: Recent Vital Signs: Vitals: 01/26/24 1940 01/26/24 2050 01/27/24 0420 01/27/24 0800 BP: 99/62 107/59 117/62 BP Location: Right arm Patient Position: Lying Pulse: 82 70 65 Resp: Temp: 36.7 ???C (98.1 ???F) 36.4 ???C [...] this time. Vital signs are stable via cardiac rehab nurse and daily lab values are unremarkable. If emergent concerns arise, please call rapid response team. Dominga Millard RN Rapid Response Team Nurse [phone] 01/27/2024 12:15 PM Normal [facility] PHOSPHORUSon 01-27-2024 Magnesium [Mass/Vol] 2.2 mg/dL Low 2.5-5.0 [facility] Comment on above: Performed By: #### L [id number] #### [facility] [[email or web address] LAB ([employer]) [address] [place] [address] POCT GLUCOSE METER UNSOLICIT ED RESULTSon 01-27-2024 Glucose [Mass/Vol] 206 mg/dL High 70-105 [facility] Comment on above: Order Comment: Waive d Testing in the ED is performed under the ED CLIA certificate #[id number]. Result Comment: [email or web address] Performed By: #### L [id number] #### [facility] [[email or web address] LAB ([employer]) [address] [place] [address] Glucose [Mass/Vol] 187 mg/dL High 70-105 [facility] Comment on above: Order Comment: Waive d Testing in the ED is performed under the ED CLIA certificate #[id number]. Result Comment: [email or web address] Performed By: #### L [id number] #### [facility] [[email or web address] LAB ([employer]) [address] [place] [address] Glucose [Mass/Vol] 223 mg/dL High 70-105 [facility] Comment on above: Order Comment: Waive d Testing in the ED is performed under the ED CLIA certificate #[id number]. Result Comment: [email or web address] Performed By: #### L [id number] #### [facility] [[email or web address] LAB (BEAKER) [address] [place] [address] Glucose [Mass/Vol] 160 mg/dL High 70-105 [facility] Comment on above: Order Comment: Waive d Testing in the ED is performed under the ED CLIA certificate #[id number]. Result Comment: [email or web address] Performed By: #### L [id number] #### [facility] [[email or web address] LAB (BEAKER) [address] [place] [address] 30on 01-26-2024 30 Daily Case Managemen t [...] soup Fruit cup Diet coke Tilapia (plain) Paw Paw cake 01/26/24 1246 01/26/24 1246 Regular Diet [...] Answer: eval and treat 01/26/24 1241 Normal [facility] BASIC METABOLIC PANELon 05-0 Anion gap [Moles/Vol] 12 mmol/L Normal 7-20 [facility] Comment on above: Performed By: #### L [id number] #### [facility] LAB (BEAKER) [address] [place] [address] Calcium [Mass/Vol] 7.6 mg/dL Low 8.6-10.3 [facility] Comment on above: Performed By: #### L [id number] #### [facility] [[email or web address] LAB (BEAKER) [address] [place] [address] Chloride [Moles/Vol] 109 mmol/L High 98-107 [facility] Comment on above: Performed By: #### L [id number] #### [facility] [[email or web address] LAB ([facility]) [address] [place] [address] CO2 [Moles/Vol] 21 mmol/L Normal 21-31 [facility] Comment on above: Performed By: #### L [id number] #### [facility] [[email or web address] ([facility]) [address] [place] [address] Creatinine [Mass/Vol] 1.62 mg/dL High 0.70-1.30 [facility] Comment on above: Performed By: #### L [id number] #### [facility] [[email or web address] ([facility]) [address] [place] [address] GLOMERULAR FILTRATION RATE ML/MIN/1.73 SQ M.PREDICTED 43.2 mL/min/1.73m*2 Low >60.0 [facility] Comment on above: Result Comment: The [facility]???s estimated glomerular filtration rate (eGFR) [...] group of individuals. Performed By: #### L [id number] #### [facility] [[email or web address] [address] [place] [address] Glucose [Mass/Vol] 152 mg/dL High 70-100 [facility] Comment on above: Performed By: #### L [id number] #### [facility] [[email or web address] LAB ([facility]) [address] [place] [address] Potassium [Moles/Vol] 3.9 mmol/L Normal 3.5-5.1 [facility] Comment on above: Performed By: #### L [id number] #### [email or web address] LAB ([facility]) [address] [place] [address] Sodium [Moles/Vol] 138 mmol/L Normal 136-145 [facility] Comment on above: Performed By: #### L [id number] #### [facility] [[email or web address] LAB ([facility]) [address] [place] [address] Urea nitrogen [Mass/Vol] 37 mg/dL High 7-25 [facility] Comment on above: Performed By: #### L [id number] #### [facility] [[email or web address] LAB ([facility]) [address] [place] [address] UREA NITROGEN/CREATININE (MASS RATIO) IN SER/PLAS 22.8 Normal [facility] Comment on above: Performed By: #### L [id number] #### [facility] [[email or web address] LAB ([facility]) [address] [place] [address] CBCon 01-26-2024 Erythrocyte distribution width (RBC) [Ratio] 14.5 % Normal 11.5-15.0 [facility] Comment on above: Performed By: #### L [id number] #### [facility] [[email or web address] LAB ([facility]) [address] [place] [address] ERYTHROCYTE MEAN CORPUSCULAR HEMOGLOBIN CONCENTRATION (G/DL) BY AUTOMATED 31.9 g/dL Low 32.0-35.0 [facility] Comment on above: Performed By: #### L [id number] #### [facility] [[email or web address] LAB ([facility]) [address] [place] [address] Hematocrit (Bld) [Volume fraction] 33.2 % Low 39.0-55.0 [facility] Comment on above: Performed By: #### L [id number] #### [facility] [[email or web address] LAB ([facility]) [address] [place] [address] Hemoglobin (Bld) [Mass/Vol] 10.6 g/dL Low 13.0-17.0 [facility] Comment on above: Performed By: #### L [id number] #### [facility] [[email or web address] LAB ([facility]) [address] [place] [address] MCH (RBC) [Entitic mass] 29.1 pg Normal 27.0-33.0 [facility] Comment on above: Performed By: #### L [id number] #### [facility] [[email or web address] LAB ([facility]) [address] [place] [address] MCV (RBC) [Entitic vol] 91.2 fL Normal 82.0-98.0 [facility] Comment on above: Performed By: #### L [id number] #### [facility] [[email or web address] LAB ([facility]) [address] [place] [address] PLATELETS (10*3/UL) IN BLOOD AUTOMATED COUNT 123 10*3/uL Low 150-400 [facility] Comment on above: Performed By: #### L [id number] #### [facility] [[email or web address] LAB ([facility]) [address] [place] [address] RBC (Bld) [#/Vol] 3.64 10*6/uL Low 4.20-5.70 [facility] Comment on above: Performed By: #### L [id number] #### [facility] [[email or web address] LAB ([facility]) [address] [place] [address] WBC (Bld) [#/Vol] 12.08 10*3/uL High 4.00-10.60 [facility] Comment on above: Performed By: #### L [id number] #### [facility] [[email or web address] LAB ([facility]) [address] [place] [address] MAGNESIUMon 01-26-2024 Magnesium [Mass/Vol] 1.9 mg/dL Normal 1.9-2.7 [facility] Comment on above: Performed By: #### L [id number] #### [facility] LAB (BEAKER) [address] [place] [address] NURSNOTEon 01-26-2024 NURSNOTE Patient Name: Tito Goncalves : 1945 [...] time, but encouraged to reach out to [employer]PER[employer]OR if anything changes overnight or with any further concerns. Suleman Ortiz RN Rapid Response Team Nurse [phone] 01/26/2024 10:20 PM Normal [facility] PHOSPHORUSon 01-26-2024 Magnesium [Mass/Vol] 3.7 mg/dL Normal 2.5-5.0 [facility] Comment on above: Performed By: #### L [id number] ####[facility] [[email or web address] LAB ([facility])[address] [place] [address] POCT GLUCOSE METER UNSOLICIT ED RESULTSon 01-26-2024 Glucose [Mass/Vol] 163 mg/dL High 70-105 [facility] Comment on above: Order Comment: Waive d Testing in the ED is performed under the ED CLIA certificate #[id number]. Result Comment: [email or web address] Performed By: #### L [id number] #### [facility] [[email or web address] LAB (BEAKER) [address] [place] [address] Glucose [Mass/Vol] 206 mg/dL High 70-105 [facility] Comment on above: Order Comment: Waive d Testing in the ED is performed under the ED CLIA certificate #[id number]. Result Comment: [email or web address] Performed By: #### L [id number] ####[facility] LAB (BEAKER)[address] [place] [address] Glucose [Mass/Vol] 155 mg/dL High 70-105 [facility] Comment on above: Order Comment: Waive d Testing in the ED is performed under the ED CLIA certificate #[id number]. Result Comment: [email or web address] Performed By: #### L [id number] #### [facility] [[email or web address] LAB (BEAKER) [address] [facility] [place] [address] Glucose [Mass/Vol] 150 mg/dL High 70-105 [facility] Comment on above: Order Comment: Waive d Testing in the ED is performed under the ED CLIA certificate #[id number]. Result Comment: tful [email or web address] Performed By: #### L [id number] #### [facility] [[email or web address] LAB (AKER) [address] [place] [address] 30on 01-25-2024 30 Daily Case Managemen t Update Multidisciplinary rounds have been completed. Barriers to Discharge: 01/24- patient here for planned atrial appendage closure. Per morning meeting the patient fell this morning, presumably from hypotension (BP in 60s/70s). Gave patient fluids to rescusitate but was unsuccessful. Patient was started on levophed and brought to MICU. ECHO showed pericardia effusion, went to laboratory phlebotomist this morning for pericardiocentesis. Patient has pericardial drain. May need pt ot given age but would anticipate home maybe with [facility]. CB Diet: Dietary Orders (From admission, onward) Start Ordered 01/24/24 1051 Regular Diet Diabetic Male (carb 60g/meal) Diet effective now Question Answer Comment Room Service? Yes Carbohydrate restriction: Diabetic Male (carb 60g/meal) 01/24/24 1050 Physician Expected Discharge Date: 01/25/2024 Discharge Delays: PT Six Click Score: 21 OT Six Click Score: PT Recommendations: OT Recommendations: New Consults: Normal [facility] BASIC METABOLIC PANELon 05-0 Anion gap [Moles/Vol] 18 mmol/L Normal 7-20 [facility] Comment on above: Performed By: #### L [id number] ####[facility] [[email or web address] ([facility] [place] [address] Calcium [Mass/Vol] 7.8 mg/dL Low 8.6-10.3 [facility] Comment on above: Performed By: #### L [id number] ####[email or web address] [place] [address] Chloride [Moles/Vol] 104 mmol/L Normal 98-107 [facility] Comment on above: Performed By: #### L [id number] ####[facility] [[email or web address] LAB ([facility])[address] [place] [address] CO2 [Moles/Vol] 20 mmol/L Low 21-31 [facility] Comment on above: Performed By: #### L [id number] ####[facility] [[email or web address] LAB ([facility])[address] [place] [address] Creatinine [Mass/Vol] 1.99 mg/dL High 0.70-1.30 [facility] Comment on above: Performed By: #### L [id number] ####[facility] [[email or web address] LAB ([facility])[address] [place] [address] GLOMERULAR FILTRATION RATE ML/MIN/1.73 SQ M.PREDICTED 33.7 mL/min/1.73m*2 Low >60.0 [facility] Comment on above: Result Comment: The [facility]???s estimated glomerular filtration rate (eGFR) [...] of individuals. Performed By: #### L [id number] ####[facility] [[email or web address] LAB ([facility])[address] [place] [address] Glucose [Mass/Vol] 257 mg/dL High 70-100 [facility] Comment on above: Performed By: #### L [id number] ####[facility] [[email or web address] LAB ([facility])[address] [place] [address] Potassium [Moles/Vol] 5.0 mmol/L Normal 3.5-5.1 [facility] Comment on above: Performed By: #### L [id number] ####[facility] [[email or web address] LAB ([facility])[address] [place] [address] Sodium [Moles/Vol] 137 mmol/L Normal 136-145 [facility] Comment on above: Performed By: #### L [id number] ####[facility] [[email or web address] LAB ([facility])[address] [place] [address] Urea nitrogen [Mass/Vol] 30 mg/dL High 7-25 [facility] Comment on above: Performed By: #### L [id number] ####[facility] [[email or web address] LAB ([facility])[address] [place] [address] UREA NITROGEN/CREATININE (MASS RATIO) IN SER/PLAS 15.1 Normal [facility] Comment on above: Performed By: #### L [id number] ####[facility] [[email or web address] LAB ([facility])[address] [place] [address] BLOOD CULTUREon 01-25-2024 Bacteria identified Cx Nom (Bld) No growth at 5 days Normal [facility] Comment on above: Order Comment: Waive d Testing in the ED is performed under the ED CLIA certificate #[id number]. Performed By: #### L [id number] #### [facility] [[email or web address] LAB ([facility]) [address] [place] [address] Bacteria identified Cx Nom (Bld) No growth at 5 days Normal [facility] Comment on above: Performed By: #### L [id number] #### [facility] [[email or web address] LAB ([facility]) [address] [place] [address] CBCon 01-25-2024 Erythrocyte distribution width (RBC) [Ratio] 14.1 % Normal 11.5-15.0 [facility] Comment on above: Performed By: #### L [id number] #### [facility] [[email or web address] [address] [place] [address] ERYTHROCYTE MEAN CORPUSCULAR HEMOGLOBIN CONCENTRATION (G/DL) BY AUTOMATED 31.9 g/dL Low 32.0-35.0 [facility] Comment on above: Performed By: #### L [id number] #### [email or web address] [address] [place] [address] Hematocrit (Bld) [Volume fraction] 34.5 % Low 39.0-55.0 [facility] Comment on above: Performed By: #### L [id number] #### [email or web address] [address] [place] [address] Hemoglobin (Bld) [Mass/Vol] 11.0 g/dL Low 13.0-17.0 [facility] Comment on above: Performed By: #### L [id number] #### [email or web address] [address] [place] [address] MCH (RBC) [Entitic mass] 28.9 pg Normal 27.0-33.0 [facility] Comment on above: Performed By: #### L [id number] #### [facility] [[email or web address] [address] [place] [address] MCV (RBC) [Entitic vol] 90.6 fL Normal 82.0-98.0 [facility] Comment on above: Performed By: #### L [id number] #### [email or web address] [address] [place] [address] PLATELETS (10*3/UL) IN BLOOD AUTOMATED COUNT 191 10*3/uL Normal 150-400 [facility] Comment on above: Performed By: #### L [id number] #### [facility] [[email or web address] LAB (BEAKER) [address] [place] [address] RBC (Bld) [#/Vol] 3.81 10*6/uL Low 4.20-5.70 [facility] Comment on above: Performed By: #### L [id number] #### [facility] [[email or web address] LAB (BEAKER) [address] [place] [address] WBC (Bld) [#/Vol] 13.57 10*3/uL High 4.00-10.60 [facility] Comment on above: Performed By: #### L [id number] #### [facility] [[email or web address] LAB ([facility]) [address] [place] [address] CONSULTon 01-25-2024 CONSULT ------ -- Attestation signed [...] Goncalves Age - 79 y.o. - 1945 [facility] # - [id number] Date of Admission - 01/24/2024 10:46 AM [...] complication and patient was admitted to the [facility] for over night monitoring to be [...] 10 mg, 10 mg, oral, Daily, Lilibeth Bardia, MD aspirin EC tablet 81 mg, 81 mg, oral, q AM, Lilibeth March MD atorvastatin (Lipitor) tablet 10 mg, 10 mg, oral, q PM, Lilibeth March MD carvedilol (Coreg) tablet 12.5 mg, 12.5 mg, oral, BID with meals, Lilibeth March MD clonazePAM (KlonoPIN) tablet 1 mg, 1 mg, oral, Daily, Lilibeth March MD, 1 mg at 01/24/242210 clopidogrel (Plavix) tablet 75 mg, 75 mg, [...] TID, Lilibeth March MD, 150 mg at 01/24/242210 sodium chloride 0.9 % bolus 250 mL, 250 mL, i (more content not included)... Normal [facility] CT CERVICAL SPINE WO IV CONT Dennis 01-25-2024 CT CERVICAL SPINE WO IV CONTRAST [...] occult process. Approved by:Ryan Corrigan01/25/2024 6:22 AM. ITrenton,have reviewed the image(s) and agree with the findings in this report. Electronically signed: Trenton Martinez. 9 Invalid Interpretation Code [facility] CT CHEST WO IV CONTRASTon [...] signed: Trenton Martinez. 5 Invalid Interpretation Code [facility] CT HEAD WO IV CONTRASTon [...] in this report. Electronically signed: Trenton Martinez. 1 Invalid Interpretation Code [facility] HPon 01-25-2024 HP H&P reviewed. The pa tient was examined and there are no changes to the H&P. 79-year-old man with history of paroxysmal atrial fibrillation s/p Amulet Amplatzer placed on 01/24/24 who developed hypotensive overnight requiring Levophed. Echo was done which showed moderate pericardial effusion, and plan is to perform pericardiocentesis. I explained the risks and benefits of the procedure. He would like to proceed. Normal [facility] LACTIC ACID WITH 4 HOUR REFL EXon 01-25-2024 LACTATE (MMOL/L) IN SER/PLAS 2.1 mmol/L Normal 0.5-2.2 [facility] Comment on above: Performed By: #### L [id number] ####[facility] LAB (BEAKER)[address] [place] [address] LACTATE (MMOL/L) IN SER/PLAS 3.3 mmol/L Critically high 0.5-2.2 [facility] Comment on above: Performed By: #### L [id number] #### [facility] [[email or web address] LAB ([facility]) [address] [place] [address] MAGNESIUMon 01-25-2024 Magnesium [Mass/Vol] 1.8 mg/dL Low 1.9-2.7 [facility] Comment on above: Performed By: #### L [id number] #### [facility] [[email or web address] LAB ([facility]) [address] [place] [address] POCT GLUCOSE METER UNSOLICIT ED RESULTSon 01-25-2024 Glucose [Mass/Vol] 164 mg/dL High 70-105 [facility] Comment on above: Order Comment: Waive d Testing in the ED is performed under the ED CLIA certificate #[id number]. Result Comment: tful ks2 Performed By: #### L [id number] #### [facility] [[email or web address] LAB ([facility]) [address] [place] [address] Glucose [Mass/Vol] 134 mg/dL High 70-105 [facility] Comment on above: Order Comment: Waive d Testing in the ED is performed under the ED CLIA certificate #[id number]. Result Comment: amur tad Performed By: #### L [id number] #### [facility] [[email or web address] LAB ([facility]) [address] [place] [address] Glucose [Mass/Vol] 167 mg/dL High 70-105 [facility] Comment on above: Order Comment: Waive d Testing in the ED is performed under the ED CLIA certificate #[id number]. Result Comment: amur tad Performed By: #### L [id number] #### [facility] [[email or web address] LAB ([facility]) [address] [place] [address] Glucose [Mass/Vol] 208 mg/dL High 70-105 [facility] Comment on above: Order Comment: Waive d Testing in the ED is performed under the ED CLIA certificate #[id number]. Result Comment: amur tad Performed By: #### L [id number] ####[facility] (BEAKER)[address] [place] [address] Glucose [Mass/Vol] 270 mg/dL High 70-105 [facility] Comment on above: Order Comment: Waive d Testing in the ED is performed under the ED CLIA certificate #[id number]. Result Comment: nbow en Performed By: #### L [id number] ####[facility] [[email or web address] LAB (BEAKER)[address] [place] [address] PROCALCITONIN TESTon 024 PROCALCITONIN IN BLOOD 0.05 ng/mL Normal 0.00-0.10 [facility] Comment on above: Result Comment: [...] and initial PCT<0.5ng/mL Performed By: #### L [id number] #### [facility] [[email or web address] LAB (BEAKER) [address] [place] [address] PROTIME-INRon 01-25-2024 INR IN PPP BY COAGULATION ASSAY 1.24 High 0.90-1.10 [facility] Comment on above: Result Comment: [...] RANGE. CHEST 1995;[id number]. Performed By: #### L [id number] #### [facility] [[email or web address] LAB ([employer]) [address] [place] [address] PROTHROMBIN TIME (PT) IN PPP BY COAGULATION ASSAY 15.7 Seconds High 12.3-14.8 [facility] Comment on above: Performed By: #### L [id number] #### [email or web address] LAB ([facility]) [address] [place] [address] TROPONIN Ion 01-25-2024 Troponin I.cardiac [Mass/Vol] 0.84 ng/mL Critically high 0.00-0.04 [facility] Comment on above: Performed By: #### L [id number] ####[facility] [[email or web address] LAB ([facility])[address] [place] [address] 30on 01-24-2024 30 The patient is Moder ately Stable [...] and maintained or improved Outcome: Progressing Normal [facility] BASIC METABOLIC PANELon 04-3 Anion gap [Moles/Vol] 13 mmol/L Normal 7-20 [facility] Comment on above: Performed By: #### L [id number] ####[facility] LAB (BEAKER)[address] [place] [address] Calcium [Mass/Vol] 8.8 mg/dL Normal 8.6-10.3 [facility] Comment on above: Performed By: #### L [id number] ####[facility] [[email or web address] LAB (BEAKER)[address] [place] [address] Chloride [Moles/Vol] 103 mmol/L Normal 98-107 [facility] Comment on above: Performed By: #### L [id number] ####[facility] [[email or web address] LAB (BEAKER)[address] [place] [address] CO2 [Moles/Vol] 25 mmol/L Normal 21-31 [facility] Comment on above: Performed By: #### L [id number] ####[email or web address] LAB (BEAKER)[address] [place] [address] Creatinine [Mass/Vol] 1.26 mg/dL Normal 0.70-1.30 [facility] Comment on above: Performed By: #### L [id number] ####[facility] [[email or web address] LAB (BEAKER)[address] [place] [address] GLOMERULAR FILTRATION RATE ML/MIN/1.73 SQ M.PREDICTED 58.4 mL/min/1.73m*2 Low >60.0 [facility] Comment on above: Result Comment: [facility]???s estimated glomerular filtration rate (eGFR) [...] of individuals. Performed By: #### L [id number] ####[email or web address] LAB ([facility])[address] [place] [address] Glucose [Mass/Vol] 184 mg/dL High 70-100 [facility] Comment on above: Performed By: #### L [id number] ####[email or web address] LAB ([facility])[address] [place] [address] Potassium [Moles/Vol] 4.3 mmol/L Normal 3.5-5.1 [facility] Comment on above: Performed By: #### L [id number] ####[email or web address] LAB ([facility])[address] [place] [address] Sodium [Moles/Vol] 137 mmol/L Normal 136-145 [facility] Comment on above: Performed By: #### L [id number] ####[facility] [[email or web address] LAB ([facility])[address] [place] [address] Urea nitrogen [Mass/Vol] 21 mg/dL Normal 7-25 [facility] Comment on above: Performed By: #### L [id number] ####[email or web address] LAB ([facility])[address] [place] [address] UREA NITROGEN/CREATININE (MASS RATIO) IN SER/PLAS 16.7 Normal [facility] Comment on above: Performed By: #### L [id number] ####[facility] [[email or web address] LAB ([facility])[address] [place] [address] HPon 01-24-2024 HP History Of Present I [...] In April 2019 he presented to the [facility] with atrial fibrillation with controlled ventricular [...] cardiac remod (more content not included)... Normal [facility] MRSA/MSSA DNA NASALon 2023 MRSA DNA Negative Normal Negative [facility] Comment on above: Order Comment: Testi ng methodology is an automated qualitative in vitro diagnostic test for the directdetection and differentiation of Staphylococcus aureus (SA) DNA and methicillin-resistant Staphylococcus aureus (MRSA) DNA from nasal swabs in patients at risk for nasal colonization. The test utilizes real-time polymerase chain reaction (PCR) for the amplification of MRSA/SA DNA and fluorogenic target-specific hybridization probes for the detection of the amplified DNA. A negative result does not preclude nasal colonization. Performed By: #### L [id number] ####[facility] [email or web address]] LAB ([facility])[address] [place] [address] MSSA DNA Negative Normal Negative [facility] Comment on above: Order Comment: Testi ng methodology is an automated qualitative in vitro diagnostic test for the directdetection and differentiation of Staphylococcus aureus (SA) DNA and methicillin-resistant Staphylococcus aureus (MRSA) DNA from nasal swabs in patients at risk for nasal colonization. The test utilizes real-time polymerase chain reaction (PCR) for the amplification of MRSA/SA DNA and fluorogenic target-specific hybridization probes for the detection of the amplified DNA. A negative result does not preclude nasal colonization. Performed By: #### L [id number] ####[facility] [[email or web address] LAB ([facility])[address] [place] [address] NURSNOTEon 01-24-2024 NURSNOTE CHG wipes completed. Normal [facility] POCT GLUCOSE METER UNSOLICIT ED RESULTSon 01-24-2024 Glucose [Mass/Vol] 146 mg/dL High 70-105 [facility] Comment on above: Order Comment: Waive d Testing in the ED is performed under the ED CLIA certificate #[id number]. Result Comment: [email or web address] Performed By: #### L [id number] #### [facility] [[email or web address] LAB ([facility]) [address] [place] [address] TYPE AND SCREENon 01-24-2024 AB SCREEN Negative Normal [facility] Comment on above: Performed By: #### L [id number] ####[facility] BLOOD [facility], ABO group Nom (Bld) A Normal [facility] Comment on above: Performed By: #### L [id number] ####[facility], RH TYPE IN BLOOD Positive Normal [facility] Comment on above: Performed By: #### L [id number] ####[facility], Basophils Auto (Bld) [#/Vol] on 01-18-2024 Basophils (Bld) [#/Vol] 0.0 10 3/uL 0.0-0.1 [facility] Basophils/100 WBC Auto (Bld) on 01-18-2024 Basophils/100 WBC (Bld) 0.4 % 0.2-2.0 [facility] Eosinophils/100 WBC Auto (Bl d)on 01-18-2024 Eosinophils/100 WBC (Bld) 2.3 % 0.9-7.0 [facility] Erythrocyte distribution wid th Auto (RBC) [Ratio]on 01-18-2024 Erythrocyte distribution width (RBC) [Ratio] 13.6 % 11.0-15.0 [facility] Estimated glomerular filtrat ion rate (GFR) non- Americanon 01-18-2024 GFR/1.73 sq M.predicted among non-blacks MDRD (S/P/Bld) [Vol rate/Area] 48 mL/min/{1.73_m2} >=60 [facility] Hematocrit Auto (Bld) [Volum e fraction]on 01-18-2024 Hematocrit (Bld) [Volume fraction] 37.0 % 42.0-54.0 [facility] Hemoglobin [Mass/volume] in Bloodon 01-18-2024 Hemoglobin (Bld) [Mass/Vol] 11.7 g/dL 14.0-18.0 [facility] Laboratory - Chemistry and C hemistry - challengeon 01-18-2024 Calcium [Mass/Vol] 8.6 mg/dL 8.5-10.1 [facility] Chloride [Moles/Vol] 103 mmol/L 98-107 [facility] CO2 [Moles/Vol] 30.4 mmol/L 21.0-32.0 [facility] Creatinine [Mass/Vol] 1.44 mg/dL 0.70-1.30 [facility] GFR/1.73 sq M.predicted MDRD (S/P/Bld) [Vol rate/Area] 58 mL/min/{1.73_m2} >=60 [facility] Glucose [Mass/Vol] 140 mg/dL 74-106 [facility] Potassium [Moles/Vol] 4.5 mmol/L 3.5-5.1 [facility] Sodium [Moles/Vol] 140 mmol/L 136-145 [facility] Urea nitrogen [Mass/Vol] 17.0 mg/dL 7.0-18.0 [facility] Urea nitrogen/Creatinine [Mass ratio] 11.8 mg/mg [facility] Laboratory - Hematology and Cell countson 01-18-2024 Immature granulocytes/100 WBC (Bld) 0.0 % 0.0-0.5 [facility] Leukocytes [#/volume] correc iván for nucleated erythrocytes in Blood by Automated counon 01-18-2024 WBC corrected for nucl RBC Auto (Bld) [#/Vol] 4.8 10 3/uL 4.0-11.0 [facility] Lymphocytes Auto (Bld) [#/Vo l]on 01-18-2024 Lymphocytes (Bld) [#/Vol] 1.6 10 3/uL 1.2-3.8 [facility] Lymphocytes/100 WBC Auto (Bl d)on 01-18-2024 Lymphocytes/100 WBC (Bld) 33.8 % 20.5-60.0 [facility] MCH Auto (RBC) [Entitic mass ]on 01-18-2024 MCH (RBC) [Entitic mass] 28.3 pg 25.9-34.0 [facility] MCHC Auto (RBC) [Mass/Vol]on 01-18-2024 MCHC (RBC) [Mass/Vol] 31.6 g/dL 29.9-35.2 [facility] MCV Auto (RBC) [Entitic vol] on 01-18-2024 MCV (RBC) [Entitic vol] 89.6 fL 80.0-94.0 [facility] Monocytes Auto (Bld) [#/Vol] on 01-18-2024 Monocytes (Bld) [#/Vol] 0.6 10 3/uL 0.3-0.8 [facility] Monocytes/100 WBC Auto (Bld) on 01-18-2024 Monocytes/100 WBC (Bld) 11.8 % 1.7-12.0 [facility] Neutrophils Auto (Bld) [#/Vo l]on 01-18-2024 Neutrophils (Bld) [#/Vol] 2.5 10 3/uL 1.4-6.5 [facility] Neutrophils/100 WBC Auto (Bl d)on 01-18-2024 Neutrophils/100 WBC (Bld) 51.7 % 43.0-75.0 [facility] No Panel Informationon 01-17 Eosinophils # (Auto) 0.1 10 3/uL 0.0-0.7 [facility] Immature Granulocyte # (Auto) 0.00 10 3/uL 0.00-0.03 [facility] Orders Onlyon 01-18-2024 Orders Only [id number] Amina Goncalves 1945 Date Provider Department Center 01/18/2024 AMY PARRISH [facility] Family History Problem Relation Age of Onset Cancer Mother Heart attack Other Family Status - Relation Status Age at Mother Other Normal [facility] Platelet mean volume Auto (B ld) [Entitic vol]on 01-18-2024 Platelet mean volume (Bld) [Entitic vol] 11.4 fL 9.5-13.5 [facility] Platelets Auto (Bld) [#/Vol] on 01-18-2024 Platelets (Bld) [#/Vol] 186 10 3/uL 150-450 [facility] RBC Auto (Bld) [#/Vol]on RBC (Bld) [#/Vol] 4.13 10 6/uL 4.70-6.10 [facility] Serum or plasma anion gap de terminationon 01-18-2024 Anion gap [Moles/Vol] 11.1 mmol/L [facility] Prep for Procedureon 024 Prep for Procedure [id number] Amina Goncalves 1945 M Date Provider Department Center 11/24/2023 MADISON MOSES Family History Problem Relation Age of Onset Cancer Mother Heart attack Other Family Status - Relation Status Age at Mother Other Normal [facility] Optical coherence tomography study reporton 10-28-2023 [facility] Radiology Study observation (narrative) [facility] Prep for Procedureon 024 Prep for Procedure [id number] IvannaOlivernick e R 1945 M Date Provider Department Center 10/27/2023 MADISON MOSES Family History Problem Relation Age of Onset Cancer Mother Heart attack Other Family Status - Relation Status Age at Mother Other Normal [facility] Orders Onlyon 10-25-2023 Orders Only [id number] Oliver Goncalvesnick e R 1945 M Date Provider Department [place] 10/25/2023 MADISON MOSES Family History Problem Relation Age of Onset Cancer Mother Heart attack Other Family Status - Relation Status Age at Mother Other Normal [facility] Office Visiton 10-24-2023 Follow-up visit [id number] Oliver Goncalvesnick e R 1945 M Date Provider Department Center 10/24/2023 Daniel-MAGGY MURPHY TIMO Santiago Family History Problem Relation Age of Onset Cancer Mother Heart attack Other Family Status - Relation Status Age at Mother Other Level of Service:06879 LA OFFICE/OUTPATIENT ESTABLISHED LOW MDM 20 MIN Normal [facility] Prep for Procedureon 024 Prep for Procedure [id number] Oliver Goncalvesen e R 1945 M Date Provider Department Center 10/17/2023 MADISON MOSES Family History Problem Relation Age of Onset Cancer Mother Heart attack Other Family Status - Relation Status Age at Mother Other Normal [facility] 36on 10-05-2023 36 Patient underwent hi s pre-LAAO JESSICA. He is a candidate for an occlusive device. Spoke to patient regarding next steps. He needs to have shared decision documentation with another physician. 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 Discussed possible procedure date of 11/01/2023. He states he would consider this and would further discuss with his daughter. Of note, he is planning a trip to [place] for 1 month mid October and he will return the end of November. Normal [facility] Telephoneon 10-05-2023 Telephone [id number] Amina Goncalves 1945 M Date Provider Department Center 10/05/2023 DailyMADISON PAUL [facility] Family History Problem Relation Age of Onset Cancer Mother Heart attack Other Family Status - Relation Status Age at Mother Other Normal [facility] ANESon 09-16-2023 ANES ------ -- Attestation signed [...] 09/16/23 0900 Procedure: TRANSESOPHAGEAL ECHO (JESSICA) Location: [facility] Vascular Lab Clinical information reviewed: Allergies Meds Physical Exam Airway Mallampati: II Cardiovascular Rhythm: regular Rate: normal Dental Pulmonary Breath sounds clear to auscultation Abdominal Anesthesia Plan ASA 3 other (Moderate sedation) Anesthetic plan and risks discussed with patient. Use of blood products discussed with patient who. Plan discussed with fellow and attending. Additional Equipment Requests [facility] HP ------ -- Attestation signed by Hortencia Noel [...] there are no changes to the H&P. Normal [facility] NURSNOTEon 09-16-2023 JEAN PIERRE RN educated pt on d/ c instructions. RN encouraged pt to voice any questions or concerns. Pt verbalizes no questions or concerns at this time. Normal [facility] NURSNOTE Bedside swallow stud y completed and passed. Normal [facility] Telephoneon 09-15-2023 Telephone [id number] Amina Goncalves 1945 M Date Provider Department Center 09/15/2023 RUSTY ENGLAND [facility] Family History Problem Relation Age of Onset Cancer Mother Heart attack Other Family Status - Relation Status Age at Mother Other [facility] - [facility] Subjective Tito Goncalves is a 78 y.o. year old male patient being seen to discuss LAAO. He presented to [facility] ED in Jun 2023 for fall. He is anticoagulated with warfarin for afib. Back in December 2022 he had brain bleed s/p fall. Was treated at [facility]. He denies chest pain, SOB, and [...] In April 2019 he presented to the [facility] with atrial fibrillation with controlled ventricular [...] 1 tablet (more content not included)... Normal [facility] Office Visiton 09-06-2023 Follow-up visit [id number] Amina Goncalves 1945 M Date Provider Department Center 09/06/2023 OLIVER RUELAS [facility] Family History Problem Relation Age of Onset Cancer Mother Heart attack Other Family Status - Relation Status Age at Mother Other Level of Service:91583 LA OFFICE/OUTPATIENT ESTABLISHED HIGH MDM 40-54 MIN [facility] Coding Summaryon 07-11-2023 Coding Summary HTMLBase 64 WbnvmsfaKQa3rWl+PGhlYWQ+PE 0UCQIjR14uiWJjaY9dS3LDZJeK EtgdIDHCPBnLBlQnyeZyDB7kyB NjZXJu IC8+PL6iITOvNlaosGEla5F2eS C8Q80orh7lIUssdNZ1EFAsVzLm qemzw8ddrMl7VCioJusfTqLp UTGdgN16OGH4nU30Fx67gUZyjS Eup6dbhMj4HgOhLBXvOLY4nYkh NUedz2BtMENaI87hvYZsn4Z3 JEDemAbrwIXxEmZwsEX8yO7cYQ kymukfl5fehdoyWps2at53xKVf e6L7hTZ2A4RcgeV5SJVlfOKy EvggeFYTlI2etbjfm2jlxvfdAt HyQDJiZWr8HTn2UNHmfHhfYlBl JZ50WJN9PNEyegRgW5QlYDFw uMvyOkS6w3M7Lq9CA1MONrfjF0 VNTUFSWTwvdGQ+LM81ti35N0Rv GxjkMsa2HHUrFVD5vFK6sY0o EUYxWXwlc0G9pUF7X6HznbZobb 8tx2kaNESyZJqfE55piPSeq3N2 MLTleZR4ZIQsqOczPcHeaW04 Oyc+GXWolSczo7IyWxnyk3qhe8 jfnXx2VodcLGShlbQjfZznPCU1 f2DvYi3zCQKlbXD4yED5iX9k FqLkVvF1UBdhS686KxYqiJDgWd qfU20yO1VfbWK+KZKoDwa0RGOf rRrqQF8uF9FtZWHnuqubnVUd eHdbZE3vDFLvwgheGWXemT2bKB MoI3v9UjBlIpZ8CXwcQ7PkBOKj fznhGq13uI9eIuJuIdG3CIoe O3VltyK6KWBsmVXlAYnxVPZ5F7 6iq9C0AXHrPCUaAWH7eBM0mB0t bGlnbjogbGVmdDsgdmVydGlj AAcaDEfoH572OAJhcUfjGiRoGE luZyBEYXRlOiAgMTAvMTYvMjAy MzwvdGQ+IHWdGAJ9qMebWAAb rYLnUWhrCd7rgTifaHglYQ3bES JppuijNJKvnZ2vARTpsJEqoWrj YV5wHFXnmepzk059BfUjFJE0 MQZqaNBrI0PtfI7lGlVmFNKjOZ FkT7HafKYtDMdoR318TAkbHxT4 OOQdqcKzG4QrOEFdfTbdKeW9 o9O4Wq2Da9QwholaT7WuwNWlGe YsNaasJFw1F7GjMqcpoHY+PC90 UJAtJB70LRc6GCD7dJntJPkr KLCwX6CrbE2dNnYwTLKnGCFjAn c+PHRhYmxlIHdpZHRoPScxMDAl PvPbcKptTJ5eBo9uRSHsHKNf bWjncQFvXnJhf1gwONQrRStpHO 7zaCwsY7WpfSK8FTIvb3g4Os28 D71oN8JgvAX+BWOabST2tKZ9 iL9sUzBnWcQ7RTtuH281NuRqoQ StWurrs4ppy5cebNm9YbQ5FXDj fdTneOvmGLJ3x3SoDp37U36a IHdpZHRoPSIxNSUiIHZhbGlnbj 8ftW7aRq3+EOIbcTP4lRZ0oX7z OnBfNiM6ONfoE554OqLrbEPg Tjzpd1hms0guaQn1IqArMPWtsb UshNadBTX8q7IjTw82O6JzhYjb c2BgBas5sf90cCRiw4O2sMQ5 W2EvUJNzdvsyxMSjcWevEB5iZH XpxlcuUKAljJ1gNTQzA3j6MiJg FuS3KKyhU5IkbhK6ECWvmLPh MSLegRUVzL4wndefi2bmpyetQp QnLGAxZWt0NIh7KDFhiFatSpWj JCY5FqX4ZGQ6tOIesF1cxBbi lxhawB1uQkz+RPS6uSEtwJOVOC 1lOjwvdGQ+JBHkEWZ2oEjwDTdc AVQfgT4lHZInY8q5VdLhTfM1 QGtcA2KhjfW1SBCwrJGmDBBelM KBsU2nklplb5pgksreVePjVEQs FYo4QRv7PAPgzQapOkCgEIU7 OpF6EEJ5zVHtvW6fxUgdloavvV 9wOyc+CzekqVvfGVC4CAp6P5Aj Tdg0PJVnxSyaWG3oyBHcBMum Uw9nvOlzuPwxRM1dQNShvhoxy2 60KcHzq2zbGLNmzRAeIXhuPJQ1 T15jh7N4XKRjCNBlSDR4tVE2 mB4zzHtwzggwsHCblUmvlsElmA lwASxxUIftT895VNXfwJsnBmWd BXh5S2KjMal9EUAgaIobWQ2z yOFfEMnfQw6dwWdrmTdrHV9iJZ Nwdctqz527WiQzq5dxOARxkEWe EKqyGWR8H73fr7F3SMFpFRYw RXG9dBF8fS4pwXatbcyaeXQlfE jsepBdfEjtVLatNNhqO411MFEx mYwqElOllXg5E3VtVpd3KGTb rEfkDJ1dcJEmAAscLd1zcCnlqY jdFZ0rXTMwvkuei445QdFqy5td BKWaqDLzBNixLUX0M77hk9Y8 QBYnPCGqROM3dZR6uS5gsPielk ogbGVmdDsgdmVydGljYWwtYWxp K990BIYupRtpTvFugXwcryRl JVnoOVu8K4AqPyhqmOB+PC90YW UeKH19oTEtiOLcl0wsdIm7NwSp DBYzXBX6wQldWHivt4HsOEAr S16wcTDve2M3KGDscTlcqGKuDj EsgNT0wF4dOBjsvcnyo6buykax Riyvb0ndqh64kY20F76aUCtw RTMxOMHqEVOkDOAtvWsfmx4agJ 9wIi8+NBNxwFW4cBZ0hZ9gPECv VxY7ROzxL719KdVlgCKtOkxu i1sul6sxhMk8FtY3NTTctcHcaZ klALL4x3KcKf42P08lWFgmMYPk RQNxGJMvPIUcdMocqb6axP7l Ii8+JMAskBP4jGA5kC5mMtTmRb I0EGttT170AkHwkYKxKorvR24q I7ZwgGX+TSKvIbz4VYFezDhe JM5ulKIlYPjeQx5cONU1WrLaMv BbGZguF0ElOPRxpdvwsfxbtJK4 RTQgAEZcoX43Ct2efNaiJGQj jJBLpU5cyahmm9zzbfawVmJhKV DvRZs5ACo7XWQlnCbiMrFiPYY9 VrG8GQB9rQMhoF1zyVcbwfxb lI1bX2NrQNOtfrioUu11aA6nLq OdSbV5WSzxRbk+F1TYPNZpXQOS Z1YKTKZJNWTXTBDAVX77SX89 bUBze1C0jTV3C9MtLXZuizklgp nflYC4FWSvDWByyF78lPPjDDmk Fj5xd9U6r727UPKsNGMyaM97 Ue5uuLuhHOXcdKJXuY2fjyqsr6 vicktiKeMyXFBjVBv0ZGs3EPRi lIdfVnTsBQM1OuY0GGE3tJRw zS8evNqbujtmjE5jSki+MDQvMj vnXQj1UwbbfXH+XGJtHCS4uXnz AYpwOLVyiC9pSUJgO7g4GaEe GoP3JBvjP7EuVKWyhwbgFq78iW 5kFaPvMjO7HUxzN1DvxxF3STOq uEGoYBtbIWX1F18yp1Q9JUYp XHAoLXK4iOH8mZ1kpXvxdbrorM RrpCcmlwBasMuxUIuqOLliK571 MGJruTgjDan5LTahIOHhGB92 AV57fQWlz0B1eYB3S0ObTYJrhg etzvxojOE1YUXaZENbjL16uVJb CXxhRe5hs8N6i900PHVzUKJm hS50Mz3taZnhUGAsrFACbC8fsp lku9ivzvcgXrWaFELgLOr4KLk1 WNNpjVtwJaQjMRY6GeI4EGX3 pYAqgU7olTilrrzogX1yHhd+TU FMRTwvdGQ+GPQyOSD3gYxdWCoa IWUwhQ3hHRJzP1i3FsVaShT2 YGnfY7ByQMYuogkaQs91dL1zAa NfHtB7WTuzZ5HexnF7CQNpaNCs SMoyEWG8C07ml7F8FPPyVPOh FXL6dMO5cT3dxAfttidqoLVioH oondSqjFuqLLunLAgfF397OKGf rEukJaKiJURpRU5tjUycbDK+ EY34jm42B4CfXjvhQfs5HNJtXK Y7gNH2eO6fTXAcTQpcn3X1iIF7 B9FoqbMdjj6zp3nmCIYwAFdm U86afFQss3L1OTEgrVW6BVQxpV eoCsDvmH37Qmf+YJEhxSipb0Xb Mpfvw7upo3oqoAs5WsRtHBUi lbPpbCwcYWL5e1OcGv53F57fWC ptFZIzUWKoQOUjMFYdhNiqum9q mA9yKo6+RKPgeRQ9eVY7zK1z FfHqWuN8LZncM544ZzSosLAnCo yah5kos4oexHb5WgNuUSUcveWc vHjkHFE3y3IeVw27V9QbtRhj j3GaEnf1zb00nGKdy4X6sIH6E2 VzOUJkdgsxrWHflLceWC5iLLOm xzfnYINcbZ8aNWTqY3h4VkHb TlG4STaqA5YhlhF7KPDatLJkUS QisPWEyH3ebmqoo2jwidqdBwHy VAJnNIl1LNh7VTAyyVxcBzWy PJT9TzL1CST3bORxzP4gpYrnfj ifkH8yBlo+QFx7v3qksXFhSZ9o rXL4ZN73IK26iDYnr5G5jCO4 D5PlYORaktliwrysgKE8OEIcPC MklQ30Ei8oyRdiQo1tWZGfQFO0 IOTflPNhS3JfnU4lFnXsMMJg GPEtS1GzoBKtBKjeY510TFmrPn E8DBEblpIjJ3KqGYStdIztDeW4 n1N0Yx0SKR58GD55WN74vXAh o0U8zZX9C1YfGBGebzhogmmndL F1ZQQmKDXkiC64Mv9afGeoOt0y WFUhWCB8EMBtnQNqE7IdcB2t ShIuGJIoGDZmQ6UrgTQrKFleF3 46DWufFsJ8SIBpjiSfZ6KpJYRa tUmgBkC7q6C8Zc7WSg33ED83 MK68cMLcl1J9vRL6Z8DoFGMkgc pizvlkmQP0STMkWCXafE91Qb8h uQbpVv9iTNKyCNE0CALnwPKx K3AxuR2sWoCqRIDkOCTgR7FdyB EuSDtkK804AKhjAoW2WCIdkrDh G6UyNWIwtJssCtH5x9S0Us7F ZQeqsno5X0AnQffdtOZ+PC90YW WfKB08pIEtfZLca1wbiQm5ZpTp QNTkRIJ0uQtzNLbws9MuUZZk Y29 (more content not included)... Normal [facility] ED Clinical Summaryon 2022 ED Clinical Summary [facility] - Emergency Department [address] [place] [address] [id number] ED Clinical Summary PERSON INFORMATION Name: TITO GONCALVES Age: 78 Years Sex: MALE : 1945 MRN: Acct#: Visit Reason: Eye Injury; Fall; FALL/LT EYE LAC Arrival: 07/05/2023 16:48:26 Discharge: 07/05/2023 18:40:00 LOS: 000 01:52 Check In: 07/05/2023 16:48:26 Checkout:07/05/2023 18:40:00 Address: [facility] [employer] [facility] [id number] PCP: Augustine Metz PROVIDER INFORMATION Provider Role [...] Patient/family/caregiver verbalizes understanding of instructions given Comment: [facility] ED Patient Education Noteon 07-05-2023 ED Patient Education Note Education Materials [facility] ED Patient Summaryon 023 ED Patient Summary [facility] - Emergency Department [address] [place] [id number] PATIENT DISCHARGE INSTRUCTIONS Patient Information Name: TITO GONCALVES Age: 78 Years Date of : 1945 Reason For Visit: Eye Injury; Fall; FALL/LT EYE LAC Arrival Time: 07/05/2023 16:48:26 Primary Care Physician: Augustine Metz Attending Physician: Colin Song DO Comment: Visit Diagnosis: Diagnoses This Visit Eye Injury ([id number]) Fall ([id number]) The Pharmacy at [facility] is open Tuesday through Tuesday [...] alcohol and/or drug addiction problems; contact the [facility] 18/04 Crisis Hotline -Text 1MWTA dt [phone]. If you received any narcotics, sedation, or [...] and treatment you received today in the [facility] Emergency Department were for an urgent problem and are not intended as complete care. It is important for you to follow up with a doctor, nurse practitioner, or physician?s hospital aides and assistants teacher for ongoing care. If your symptoms become [...] so we can reach you if necessary. [facility] Emergency Department has provided you with a complete list of medications post discharge. Please inform your food broker/provider of your visit and for further instruction [...] to relieve symptom (more content not included)... Normal [facility] Phone Msgon 02-01-2023 Phone Msg - From: [...] mailed to his address on file. Normal [facility] CBC AUTO DIFFon 2023 BASO # 0.0 103/ul Normal 0.0-0.1 [facility] Comment on above: Performed By: #### C BC #### [facility] [address] [address] [address] Arjun Menjivar Basophils/100 WBC (Bld) 0.4 % Normal 0.2-2.0 [facility] Comment on above: Performed By: #### C BC #### [facility] [address] [place] [address] Dr. Arjun Menjivar EO # 0.1 103/ul Normal 0.0-0.7 [facility] Comment on above: Performed By: #### C BC #### [facility] [address] [place] [address] Dr. Arjun Menjivar Eosinophils/100 WBC (Bld) 1.5 % Normal 0.9-7.0 [facility] Comment on above: Performed By: #### C BC #### [facility] [address] [place] [address] Dr. Arjun Menjivar Erythrocyte distribution width (RBC) [Ratio] 13.7 % Normal 11.0-15.0 [facility] Comment on above: Performed By: #### C BC #### [facility] [address] [place] [address] Dr. rAjun Menjivar Hematocrit (Bld) [Volume fraction] 41.9 % Critically low 42.0-54.0 [facility] Comment on above: Performed By: #### C BC #### [facility] [address] [place] [address] Dr. Arjun Menjivar Hemoglobin (Bld) [Mass/Vol] 13.7 g/dL Critically low 14.0-18.0 [facility] Comment on above: Performed By: #### C BC #### [facility] [address] [place] [address] Dr. Arjun Menjivar IG # 0.02 10e3/ul Normal 0.00-0.03 [facility] Comment on above: Performed By: #### C BC #### [facility] [address] [place] [address] Dr. Arjun Menjivar IG % 0.3 % Normal 0.0-0.5 [facility] Comment on above: Performed By: #### C BC #### [facility] [address] [place] [address] Dr. Arjun Menjivar LYMPH # 1.4 103/ul Normal 1.2-3.8 [facility] Comment on above: Performed By: #### C BC #### [facility] [address] [place] [address] Dr. Arjun Menjivar Lymphocytes/100 WBC (Bld) 16.9 % Critically low 20.5-60.0 [facility] Comment on above: Performed By: #### C BC #### [facility] [address] [place] [address] Dr. Arjun Menjivar MANUAL DIFF REQ NO Normal [facility] Comment on above: Performed By: #### C BC #### [facility] [address] [place] [address] Dr. Arjun Menjivar MCH (RBC) [Entitic mass] 28.8 pg Normal 25.9-34.0 [facility] Comment on above: Performed By: #### C BC #### [facility] [address] [place] [address] Dr. Arjun Menjivar MCHC (RBC) [Mass/Vol] 32.7 g/dL Normal 29.9-35.2 [facility] Comment on above: Performed By: #### C BC #### [facility] [address] [place] [address] Dr. Arjun Menjivar MCV (RBC) [Entitic vol] 88.2 fL Normal 80.0-94.0 [facility] Comment on above: Performed By: #### C BC #### [facility] [address] [place] [address] Dr. Arjun Menjivar MONO # 0.5 103/ul Normal 0.3-0.8 [facility] Comment on above: Performed By: #### C BC #### [facility] [address] [place] [address] Dr. Arjun Menjivar Monocytes/100 WBC (Bld) 5.9 % Normal 1.7-12.0 [facility] Comment on above: Performed By: #### C BC #### [facility] [address] [place] [address] Dr. Arjun Menjivar NEUT # 6.0 103/ul Normal 1.4-6.5 [facility] Comment on above: Performed By: #### C BC #### [facility] [address] [address] [address] Arjun Menjivar Neutrophils/100 WBC (Bld) 75.0 % Normal 43.0-75.0 [facility] Comment on above: Performed By: #### C BC #### [facility] [address] [address] [address] Arjun Menjivar Platelet mean volume (Bld) [Entitic vol] 11.4 fL Normal 9.5-13.5 [facility] Comment on above: Performed By: #### C BC #### [facility] [address] [place] [address] Dr. Arjun Menjivar PLT 169 103/ul Normal 150-450 [facility] Comment on above: Performed By: #### C BC #### [facility] [address] [place] [address] Dr. Arjun Menjivar RBC 4.75 106/ul Normal 4.70-6.10 [facility] Comment on above: Performed By: #### C BC #### [facility] [address] [place] [address] Dr. Arjun Menjivar WBC 8.0 103/ul Normal 4.0-11.0 [facility] Comment on above: Performed By: #### C BC #### [facility] [address] [place] [address] CSPINE WO CONon [...] by: SALINA ESPINOZA Date: 2023 16:[address] [facility] [address] HEAD WO CONon 2023 CT HEAD [...] TOSHIA ANDRES Date: 2023 21:30 Normal [facility] PROF 14(COMP METB)on 023 Albumin [Mass/Vol] 3.7 g/dL Normal 3.4-5.0 [facility] Comment on above: Performed By: #### C MP ####[facility] [address] [place] [address]Dr. Arjun Menjivar Albumin/Globulin [Mass ratio] 1.1 {ratio} Normal [facility] Comment on above: Performed By: #### C MP ####[facility] [address] [place] [address]Dr. Arjun Menjivar ALP [Catalytic activity/Vol] 87 U/L Normal 46-116 [facility] Comment on above: Performed By: #### C MP ####[facility] [address] [place] [address]Dr. Arjun Menjivar ALT [Catalytic activity/Vol] 26 U/L Normal 16-63 [facility] Comment on above: Performed By: #### C MP ####[facility] [address] [place] [address]Dr. Arjun Menjivar Anion gap [Moles/Vol] 9.2 mmol/L Normal [facility] Comment on above: Performed By: #### C MP ####[facility] [address] [place] [address]Dr. Arjun Menjivar AST [Catalytic activity/Vol] 20 U/L Normal 15-37 [facility] Comment on above: Performed By: #### C MP ####[facility] [address] [place] [address]Dr. Arjun Menjivar Bilirubin [Mass/Vol] 0.4 mg/dL Normal 0.2-1.0 [facility] Comment on above: Performed By: #### C MP ####[facility] [address] [place], [place] [address]Dr. Arjun Menjivar Calcium [Mass/Vol] 9.1 mg/dL Normal 8.5-10.1 [facility] Comment on above: Performed By: #### C MP ####[facility] [address] [place], [place] [address]Dr. Arjun Menjivar Chloride [Moles/Vol] 105 mmol/L Normal 98-107 [facility] Comment on above: Performed By: #### C MP ####[facility] [address] [place], [place] [address]Dr. Arjun Menjivar CO2 [Moles/Vol] 28.9 mmol/L Normal 21.0-32.0 [facility] Comment on above: Performed By: #### C MP ####[facility] [address] [place], [place] [address]Dr. Arjun Otto Creatinine [Mass/Vol] 1.23 mg/dL Normal 0.70-1.30 [facility] Comment on above: Performed By: #### C MP ####[facility] [address] [place], [place] [address]Dr. Arjun Otto EGFR-AF EGYPTIAN >60 Normal >=60 [facility] Comment on above: Performed By: #### C MP ####[facility] [address] [place], [place] [address]Dr. Tannashukri Otto EGFR-NON AF EGYPTIAN 57 mL/min/1.73m2 Critically low >=60 [facility] Comment on above: Performed By: #### C MP ####[facility] [address] [place], [place] [address]Dr. Arjun Menjivar Globulin (S) [Mass/Vol] 3.4 g/dL Normal [facility] Comment on above: Performed By: #### C MP ####[facility] [address] [place], [place] [address]Dr. Arjun Menjivar Glucose [Mass/Vol] 126 mg/dL Critically high 74-106 T [facility] Comment on above: Performed By: #### C MP ####[facility] [address] [place] [address]Dr. Arjun Menjivar Potassium [Moles/Vol] 4.1 mmol/L Normal 3.5-5.1 [facility] Comment on above: Performed By: #### C MP ####[facility] [address] [place] [address]Dr. Arjun Menjivar Protein [Mass/Vol] 7.1 g/dL Normal 6.4-8.2 [facility] Comment on above: Performed By: #### C MP ####[facility] [address] [place], [place] [address]Dr. Arjun Menjivar Sodium [Moles/Vol] 139 mmol/L Normal 136-145 [facility] Comment on above: Performed By: #### C MP ####[facility] [address] [place], [place] [address]Dr. Arjun Menjivar Urea nitrogen [Mass/Vol] 12.0 mg/dL Normal 7.0-18.0 [facility] Comment on above: Performed By: #### C MP ####[facility] [address] [place], [place] [address]Dr. Arjun Menjivar Urea nitrogen/Creatinine [Mass ratio] 9.8 mg/mg Normal [facility] Comment on above: Performed By: #### C MP ####[facility] [address] [place], [place] [address]Dr. Arjun Menjivar PROTIMEon 2023 INR Coag (PPP) [Relative time] 2.90 {INR} Normal [facility] Comment on above: Performed By: #### P TT, PT ####[facility] [address] [place], [place] [address]Dr. Arjun Menjivar INR GUIDELINES SEE BELOW Normal [facility] Comment on above: Result Comment: PIOTR RED INR: 2.0 - 3.0 CONDITIONS NOT LISTED BELOW 2.5 - 3.5 FOR PROSTHETIC HEART VALVE REPLACEMENT 2.5 - 3.5 RECURRENT THROMBOSIS Performed By: #### P TT, PT ####[facility] [address] [place], [place] [address]Ns. Arjun Menjivar PT Coag (PPP) [Time] 28.9 s Critically high 9.0-11.6 [facility] Comment on above: Performed By: #### P TT, PT ####[facility] [address] [place], [place] [address]Np. Arjun Menjivar PTTon 2023 aPTT Coag (Bld) [Time] 37.7 s Critically high 22.3-36.2 [facility] Comment on above: Performed By: #### P TT, PT ####[facility] [address] [place] [id number]. Arjun Menjivar XR PELVIS 1_2 VIEWSon 2022 [...] by: LINDA WANG Date: 2023 16:14 Normal [facility] XR ERCP 1 HOUR FLUOROon 10-27 XR ERCP 1 HOUR FLUORO Fluoroscopic guidance for ERCP 11/09/2022 6:30 AM HAND DEICER ELEMENT WINDER History: DR ORDER;OTHER REASON Tech notes: WHAT SYMPTOMS ARE YOU [...] by: Radha Haji MD 11/10/2022 8:01 AM HAND DEICER ELEMENT WINDER Technologist: AG Dictated By: RADHA HAJI MD Signed By: RADHA HAJI MD Signed Out: 11/10/22 09:01:42 Normal [facility] Anesthesiaon 11-09-2022 Anesthesia Patient: YE GONCALVES [...] Postoperative hydration status: euvolemic. Notes: Normothermia. Normal [facility] Anesthesia Patient: YE GONCALVES Age: 77 [...] release 325 mg = 1 caps, ORAL, [id number] trazodone = Desyrel 50 mg, ORAL, BID [...] available Procedure history: Endoscopic Retrograde Cholangiopancreatography (ERCP). (19097) on 11/09/2022 at 77 Years. Endoscopic Retrograde Cholangiopancreatography (ERCP). (93317) on 08/14/2021 at 76 Years. Esophagogastroduodenoscopy , flexible, transoral; with endoscopic ultrasound examination limited to the esophagus, stomach or duodenum, and adjacent structures (48009) on 07/10/2021 at 76 Years. Social History [...] palate, fauces, uvula visible). Assessment and Plan [place] [employer] Anesthesiologists (ASA) physical status classification: [...] recognition software. Verbal misinterpretations may occur. Normal [facility] ENDO Initial Data VS HW Prep [...] Bettencourt RN - 11/09/2022 7:09 EST Normal [facility] ENDO Outpatient Admission Da ta-Texton 11-09-2022 ENDO Outpatient Admission Data-Text Endoscopy OP Admission Data Entered On: 11/09/2022 7:12 EST Performed On: 11/09/2022 7:09 EST [facility] : Ambulatory Mental Status : Alert Oriented : Person, Place, Time Pacemaker/AICD : na Heart : Regular Lungs : Clear Abdomen : Soft Bowel Sounds All Quadrants : Present Prosthesis/Metal : BL knees Glasses : Yes Dentures : Yes Person Driving Pt Home : daughter Amna Surgeon Speak with Printing Equipment Mechanic : Yes Voided : No Pain Level and Site : 0 Kaylyn Bettencourt RN - 11/09/2022 7:09 EST Present on Admission Medical Devices : None Medical Devices for Med Administration : None Kaylyn Bettencourt RN 11/09/2022 7:09 EST Clinton Coma Eye Opening Response Clinton : Spontaneously Best Verbal Response Clinton : Oriented Best Motor Response Vikas : Obeys simple commands Vikas Coma Score : 15 Kaylyn Bettencourt RN 11/09/2022 7:09 EST Advance Directive *Advance Directive : Yes Kaylyn Bettencourt RN 11/09/2022 7:09 EST Outpatient Fall Risk GEN_Fall Risk Indicators_49304 : Age 65 or greater, Medications altering equilibrium or cognitive judgement Fall Risk Band On : Yes Kaylyn Bettencourt RN 11/09/2022 7:09 EST Screening-Safety Domestic Concerns : None Feeling Down, Depressed, Hopeless : Not at all Little Interest - Pleasure in Activities : Not at all Initial Depression Screen Score : 0 Depression Screening Score 0 : No Kaylyn Bettencorut RN 11/09/2022 7:09 EST Education Barriers to Learning : None evident TeachBack Methodology : TeachBack, Demonstration, Explanation, Printed Material Kaylyn Bettencourt RN 11/09/2022 7:09 EST ENDO Education Activity Expectations : Verbalizes understanding Anesthesia/Sedation : Verbalizes understanding Endo Post Procedure Care : Verbalizes understanding Follow-Up Care/Appointment : Verbalizes understanding Safety : Verbalizes understanding Kaylyn Bettencourt RN 11/09/2022 7:09 EST Normal [facility] Inpatient Patient Summaryon 11-09-2022 Inpatient Patient Summary [facility] Discharge Instructions [address] [place] [address] \.br\(Patient Copy)\.br\ \.br\ \.br\Name: TITO GONCALVES : 1945 \.br\Diagnosis: \.br\ \.br\Allergies: sulfa drugs; penicillins; iodine topical\.br\ \.br\Registration Date: 11/09/22\.br\.br\.br\ \.br\ Current Date Time: 11/09/2022 08:44:54 \.br\ \.br\Address: [facility] [employer] [facility] [address] \.br\Phone: [phone] \.br\ \.br\Primary Care Provider: \.br\Name: AUGUSTINE METZ\.br\Phone: [phone] \.br\ \.br\Thank you for choosing [facility] for your care. You are very important to us. Our goal is to demonstrate our high quality medical care and provide you with a very good patient experience.\.br\ You may receive a survey about our service. Please take the time to complete the survey and return it so we can continue to enhance our service.\.br\ Thank you again for allowing [facility] to care for your medical needs. If you have any questions about your care or follow up information please contact your doctor.\.br\.br\Follow-up Instructions\.br\.br\.br \With: Address: When: \.br\PUJA HOLBROOK [facility] [address], [address] [place] [address]\.br\ Business (1) Within Call for Appointment \.br\.br\.br\.br\.br\P [...] ient education materials, if any, will display below\.br\[facility] ENDOSCOPY DEPARTMENT\.br\.br\FOLLOW UP CARE\.br\? For biopsy [...] tarry sto (more content not included)... Normal [facility] OR Nursing Record - Endoon 0 11-09-2022 OR Nursing Record - Endo OR Nursing Record - Endo Summary Primary Physician: PUJA HOLBROKO MD Finalized Date/Time: 11/09/22 08:27:34 Pt. Name: TITO GONCALVES Frankie/Sex: 1945 Male Med Rec #: [id number] Physician: Financial #: [id number] Pt. Type: A Room/Bed: / Admit/Disch: 11/09/22 06:11:45 - Institution: Case Times - Endo Entry 1 Patient In Room Time 11/09/22 07:43:00 Out Room Time 11/09/22 08:24:00 Anesthesia Facility Times Induction Time 11/09/22 07:48:00 Stop Time 11/09/22 08:15:00 [facility] Protocol Yes Completed Surgery Start Time 11/09/22 [...] Solomon RN, Minnie Role Performed Surgeon Primary Laboratory Coordinator Primary Scrub Primary Time In 11/09/22 07:43:00 11/09/22 07:43:00 11/09/22 07:43:00 Time Out 11/09/22 08:24:00 11/09/22 08:24:00 11/09/22 08:24:00 Procedure ERCP(None) ERCP(None) ERCP(None) Last Modified By: Martha Haider RN, RN, Martha Barrera RN 11/09/22 08:21:41 11/09/22 08:21:41 11/09/22 08:21:41 Entry 4 Entry 5 Entry 6 Case Attendee Dena GAVIN, Josselin SPRINGER DO, JYOTI TOPETE Role Performed Laboratory Coordinator Secondary Anesthesiologist Primary Anesthesia Asst/[employer] OFFICE INSTRUCTOR Time In 11/09/22 07:43:00 11/09/22 07:43:00 11/09/22 [...] 08:23 Martha Haider RN 11/09/22 08:27 Normal [facility] Operative Reporton 3 Operative Report Patient: YE GONCALVES Age: 77 [...] Notes: Follow-up in clinic as scheduled. Normal [facility] Comment on above: Order Comment: Ida sevilla Attachment [id number] can be viewed in source system Missing Attachment [id number] can be viewed in source system Missing Attachment [id number] can be viewed in source system Missing Attachment [id number] can be viewed in source system Missing Attachment [id number] can be viewed in source system Missing Attachment [id number] can be viewed in source system Result Comment: PACU Phase I - Endoon 2022 PACU Phase I - Endo PACU Phase I - Endo Summary Primary Physician: PUJA HOLBROOK MD Finalized Date/Time: 11/09/22 08:55:35 Pt. Name: IVANNATITO/Sex: 1945 Male Med Rec #: [id number] Physician: Financial #: [id number] Pt. Type: A Room/Bed: / Admit/Disch: 11/09/22 06:11:45 - Institution: PACU I Case Times - Endo Entry 1 In PACU I 11/09/22 08:25:00 Ready for Transfer 11/09/22 09:19:00 Last Modified By: Sariah Schreiber RN 11/09/22 08:55:34 Finalized By: Sariah Schreiber RN Document Signatures Signed By: Sariah Schreiber RN 11/09/22 08:55 [facility] POC Glucoseon 11-09-2022 Glucose [Mass/Vol] 131 mg/dL High 72-100 [facility] [place] Comment on above: Performed By: #### 1 [id number] ####[facility] [address] [place] [id number] Medical Director: Diogo Carcamo MD Preop - Endoon 11-09-2022 Preop - Endo Preop - Endo Summary Primary Physician: PUJA HOLBROOK MD Finalized Date/Time: 11/09/22 07:13:53 Pt. Name: TITO GONCALVES Yehuda Alexander./Sex: 1945 Male Med Rec #: [id number] Physician: Financial #: [id number] Pt. Type: A Room/Bed: / Admit/Disch: 11/09/22 06:11:45 - Institution: Preop - Case Times - Endo Entry 1 Patient Arrival Time 11/09/22 06:31:00 Patient Ready for 11/09/22 07:11:00 Surgery Report Given to n/a Last Modified By: Kaylyn Bettencourt RN 11/09/22 07:13:51 Finalized By: Kaylyn Bettencourt RN Document Signatures Signed By: Kaylyn Bettencourt RN 11/09/22 07:13 Normal [facility] Provider Letter - Ambulatory on 11-09-2022 Provider Letter - Ambulatory AUGUSTINE METZ, [address] [place] [address] RE: TITO GONCALVES 11/09/2022 Dear AUGUSTINE METZ [...] - (11/09/2022) GI ERCP with Anesthesia Normal [facility] Protocol/Pre-Proc TimeOut-Texton 11-09-2022 [facility] Protocol/Pre-Proc TimeOut-Text [facility] Protocol Entered On: 11/09/2022 7:13 EST Performed [...] Precautions Based on Patient Medication or History Sg GAVIN, Kaylyn - 11/09/2022 7:09 EST Final Verification Date/Time : 11/09/2022 07:48 EST Verification : Patient Identified (Name and Date), Correct Procedure, All Team Members are in Agreement Laterality : N/A Martha Haider RN - 11/09/2022 7:48 EST Normal [facility] Phone Msgon 11-08-2022 Phone Msg - From: Lori Cintron MA Sent: 11/08/2022 13:03:57 EST Caller Name: TITO GONCALVES Caller Number: H Pt called to ask if he should take heart pills prior to procedure with Dr. Angelo 11/09, ERCP. In question: propafenone, carvedilol and benazepril and if he can take them around one hour prior to arrival which would be 5:30am. 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 Normal [facility] MRI ABDOMEN WO CONon 023 MRI [...] by: SANTOS DC Date: 2022-11-01 09:53 Normal [facility] Phone Msgon 10-28-2022 Phone Msg - From: Fela Alexandre To: Caren Carvalho RN; Blanca Bazzi; Sent: 10/28/2022 09:12:23 EST Subject: Cardiac Clearance Caller Name: MICHTITO WISDOM; Caller Number: H Patient asking when to stop Coumadin. Colonoscopy scheduled 11/09/21 From: Blanca Bazzi To: Fela Alexandre; Sent: 10/28/2022 09:15:22 EST Subject: RE: Cardiac Clearance Caller Name: MICHTITO WISDOM; Caller Number: H Did he say who his Manager Office was? From: Caren Carvalho RN To: Blanca Bazzi; Fela Alexandre; Sent: 10/28/2022 09:50:53 EST Subject: RE: Cardiac Clearance Caller Name: IVANNA TITO Yehuda; Caller Number: H He sees Dr. Metz sent LM for pt-Per Dr. Metz, pt can be off his Coumadin 5 days prior to his procedure. Normal [facility] AMB GI Physician Progress No irma 10-26-2022 AMB GI Physician Progress Note Chief Complaint Abdominal pain History of Present Illness 77-year-old male with recurrent history of choledocholithiasis last ERCP was done a year ago in [place] Patient had admission in hospital in [place] with fever and chills Patient has had [...] Est Pt Mod MDM / 30-39 min 03610, 10/26/2022 16:13:00 EST, Abdominal pain / Pancreatic cyst MR CP, 10/26/2022, Routine, PAIN, Abdominal pain / Pancreatic cyst 2. Pancreatic cyst K86.2 Pancreatic cyst stable very low CEA levels suggestive of simple serous cyst versus inflammatory cyst. Asymptomatic Ordered: AMB Follow - Up Appt Amb, 10/26/2022 16:13:00 EST, 4 weeks AMB Office/Outpt Est Pt Mod MDM / 30-39 min 56840, 10/26/2022 16:13:00 EST, Abdominal pain / Pancreatic [...] extended release, 325 mg= 1 caps, ORAL, [id number] trazodone = Desyrel, 50 mg, ORAL, BID [...] Care Team Primary Care Physician AUGUSTINE METZ [phone] Attending Physician PUJA HOLBROOK MD [phone] . Health Maintenance Pending (in the next year) There are no current recommendations pending Satisfied (in the past 1 year) There are no satisfied recommendations within the defined date range Normal [facility] Comprehensive Intake - Texto n 10-26-2022 [...] in, 183 cm) Body Mass Index Measured Burmese : 18.85 kg/m2 BSA Burmese : 1.79 m2 Ht/Wt Measurement Refused by [...] risk situation (congregated living, hemodialysis, infusion clinic, shelter, assisted living, senior care, homeless skilled nursing, etc.)? : No Abdulaziz LISA Lori - 10/26/2022 14:56 EST Depression Screening Is [...] Abnormal LFTs (liver function tests) (SNOMED CT :031407434 ) Name of Problem: Abnormal LFTs (liver function tests) ; Recorder: Blanca Bazzi; Confirmation: Confirmed ; Classification: Medical ; Code: 060999222 ; Contributor System: SnaptripChart ; Last Updated: 07/01/2021 12:43 EDT ; Life Cycle Date: 07/01/2021 ; Life Cycle Status: Active ; Vocabulary: SNOMED CT Arthritis (SNOMED CT :8243929 ) Name of Problem: Arthritis ; Recorder: Blanca Bazzi; Confirmation: Confirmed ; Classification: Medical ; Code: 5711303 ; Contributor System: SnaptripChart ; Last Updated: 07/01/2021 12:43 EDT ; Life Cycle Date: 07/01/2021 ; Life Cycle Status: Active ; Vocabulary: SNOMED CT Choledocholithiasis (SNOMED CT :385596412 ) Name of Problem: Choledocholithiasis ; Recorder: PUJA HOLBROOK MD; Confirmation: Confirmed ; Classification: Medical ; Code: 104355620 ; Contributor System: SnaptripChart ; Last Updated: 07/01/2021 13:27 EDT ; Life Cycle Date: 07/01/2021 ; Life Cycle Status: Active ; Responsible Provider: PUJA HOLBROOK MD; Vocabulary: SNOMED CT Diabetes (SNOMED CT :797995731 ) Name of Problem: Diabetes ; Recorder: Blanca Bazzi; Confirmation: Confirmed ; Classification: Medical ; Code: 140895115 ; Contributor System: PowerChart ; Last Updated: 07/01/2021 12:43 EDT ; Life Cycle Date: 07/01/2021 ; Life Cycle Status: Active ; Vocabulary: SNOMED CT Gallbladder disease (SNOMED CT :815965760 ) Name of Problem: Gallbladder disease ; Recorder: Blanca Bazzi; Confirmation: Confirmed ; Classification: Medical ; Code: 543849187 ; Contributor System: PowerChart ; Last Updated: 07/01/2021 12:44 EDT ; Life Cycle Date: 07/01/2021 ; Life Cycle Status: Active ; Vocabulary: SNOMED CT GERD (gastroesophageal reflux disease) (SNOMED CT :512368388 ) Name of Problem: GERD (gastroesophageal reflux disease) ; Recorder: Blanca Bazzi; Confirmation: Confirmed ; Classification: Medical ; Code: 883022632 ; Contributor System: PowerChart ; Last Updated: 07/01/2021 12:44 EDT ; Life Cycle Date: 07/01/2021 ; Life Cycle Status: Active ; Vocabulary: SNOMED CT Hypertension (SNOMED CT :0641990949 ) Name of Problem: Hypertension ; Recorder: Blanca Bazzi; Confirmation: Confirmed ; Classification: Medical ; Code: 3796463195 ; Contributor System: PowerChart ; Last Updated: 07/01/2021 12:44 EDT ; Life Cycle Date: 07/01/2021 ; Life Cycle Status: Active ; Vocabulary: SNOMED CT Irregular heart rhythm (SNOMED CT :157579187 ) Name of Problem: Irregular heart rhythm ; Recorder: Blanca Bazzi; Confirmation: Confirmed ; Classification: Medical (more content not included)... Normal [facility] Provider Letter - Ambulatory on 10-26-2022 Provider Letter - Ambulatory AUGUSTINE METZ, [address] [place] [address] RE: TITO GONCALVES 10/26/2022 Dear AUGUSTINE METZ [...] - (10/26/2022) *.AMB Office Visit Note [facility] Phone Msgon 10-22-2022 Phone Msg - From: Lise Lawrence MA To: Caren Carvalho RN; PUJA HOLBROOK MD; Sent: 10/22/2022 09:40:42 EST Subject: symptoms/appointment Caller Name: TITO GONCALVES; Caller Number: H Tito Berg daughter, Amna Sousa [phone] called. She is asking if he can [...] other dilemma is he is leaving for [place] on 11/13 for 6 weeks. From: Caren [...] him until December. He has moved to [facility] and Tito would be considered a new patient. His daughter did not feel he was acutely ill and that he can wait for the appointment next Tuesday. Normal [facility] GLYCOHEMOGLOBIN A1Con 2022 ADA RECOMMENDATION SEE BELOW Normal [facility] Comment on above: Result Comment: ADA RECOMMENDED LIMIT 4.0 - 6.0 ADA THERAPEUTIC TARGET < 7.0 ACTION SUGGESTED > 7.0 Performed By: #### A 1C ####[facility] [address] [place] [id number]. Arjun Menjivar Glucose [Mass/Vol] 163 mg/dL Normal [facility] Comment on above: Performed By: #### A 1C ####[facility] [address] [place], [place] [address]Pq. Arjun Menjivar HbA1c (Bld) [Mass fraction] 7.3 % Critically high 4.5-6.2 [facility] Comment on above: Performed By: #### A 1C ####[facility] [address] [place], [place] [address]Li. Arjun Menjivar Dermatopathologyon 2 Dermatopathology Name: TITO GONCALVES Pathologist: KRISTEN OCONNOR MD Date of Procedure: 09/07/2022 Date Received: 09/07/2022 Date Reported 09/08/2022 Submitting Physician: MACARIO BUI MD, Location: [facility] Copy To/Referring/Attending: MD SABRA SIMS FINAL DIAGNOSIS 3 SLIDES[facility] #[id number] (BX: 08/03/2022) A. 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 B. SKIN, RIGHT ROMAN CATHOLIC, SHAVE BIOPSY: MELANOMA IN SITU, PRESENT ON [...] M.D. CANCER SUMMARY REPORT A. 3 SLIDES[facility] #[id number] (BX: 08/03/2022): SPECIMEN Procedure: Biopsy, shave Specimen Laterality: Right TUMOR Tumor Site: Skin of other and unspecified parts of face: Right gnosticism Histologic Type: Melanoma in situ, lentigo maligna [...] ADDITIONAL FINDINGS Additional Findings: None ADDITIONAL TESTING Historian Research Assistant Blocks: Normal Block: None Tumor Block: A1 Electronically Signed Out By KRISTEN OCONNOR MD/[facility] Diagnostic interpretation performed at [facility] [address] [address], [facility] [address] Microscopic Description: A. Microscopic examination reveals nests [...] OTHER Specimens Submitted As: A: 3 SLIDES[facility] #[id number] (BX: 08/03/2022) Gross Description: Received for consultation from [facility] are three slides labeled [id number] (BX: 08/03/2022) along with the corresponding pathology report. Slide/Block Description 3 SLIDES, [id number]. Keep Slides: N Slides Returned: N Personal Consult: N Normal [facility] Comment on above: Performed By: #### D #### Dermatopathology GLYCOHEMOGLOBIN A1Con 2021 ADA RECOMMENDATION SEE BELOW Normal [facility] Comment on above: Result Comment: ADA RECOMMENDED LIMIT 4.0 - 6.0 ADA THERAPEUTIC TARGET < 7.0 ACTION SUGGESTED > 7.0 Performed By: #### A 1C ####[facility] [address] [place] [id number]. Arjun Menjivar Glucose [Mass/Vol] 151 mg/dL Normal [facility] Comment on above: Performed By: #### A 1C ####[facility] [id number] [place] [id number]. Arjun Menjivar HbA1c (Bld) [Mass fraction] 6.9 % Critically high 4.5-6.2 [facility] Comment on above: Performed By: #### A 1C ####[facility] [address] [place], [place] [address]Fx. Arjun Menjivar XR ESOPHAGUSon 06-28-2022 XR ESOPHAGUS [...] by: CARMEN PABLO Date: 2022-06-28 14:07 Normal [facility] XR MODIFIED BARIUM SWALLOWon [...] by: SANTOS DC Date: 2022-06-15 11:11 Normal [facility] Ambulatory Visit Summaryon 0 05-03-2022 Ambulatory Visit Summary IVANNA TITO Blackman :1945 Visit Date:05/03/2022 Ambulatory Visit Instructions Your [...] [facility] [address], [place] [phone] Medications What How Much When Instructions Unchanged [...] the si (more content not included)... Normal [facility] Patient Educationon 05-03-20 Patient Education Urology Benign [...] Follow these instructions at home: ? Take cvkr-tii-ystwowi and prescription medicines only as told by [...] You d (more content not included)... Normal [facility] Urology Office/Clinic Noteon 05-03-2022 Urology Office/Clinic Note Chief Complaint 1 year with KUB HPI Staff Tito is here today for a 1 year follow up with a KUB. KUB done on 04/26/22 at [facility] impression showed no appreciable urinary tract [...] reflux uropathy) Follow-up With When Contact Information Mc ALMONTE MD, URL [facility] [address], [place] [phone] Additional Instructions: PRN Patient Education Benign Prostatic Hyperplasia I, Jerri Lyles, personally scribed for Dr. Almonte on 05/03/2022 09:24:40. . Documentation recorded by the scribeJerri, accurately reflects the services(s) I performed and [...] in lifetim (more content not included)... Normal [facility] Comment on above: Result Comment: Elec tronically Signed By: Mc ALMONTE MD\.br\Date and Time Signed: 05/03/22 09:26 EDT\.br\Electronically Co-Signed By: Jerri Lyles\.br\Date and Time Co-Signed: 05/03/22 09:24 EDT RAD - MISCon 04-28-2022 RAD - MISC [id number] Normal [facility] XR KUB 1 VIEWon 04-27-2022 XR KUB [...] SANTOS DC Date: 2022-04-27 06:18 Normal [facility] GLYCOHEMOGLOBIN A1Con 2021 ADA RECOMMENDATION SEE BELOW Normal [facility] Comment on above: Result Comment: ADA RECOMMENDED LIMIT 4.0 - 6.0 ADA THERAPEUTIC TARGET < 7.0 ACTION SUGGESTED > 7.0 Performed By: #### A 1C #### [facility] [address] [place] [address] Dr. Arjun Menjivar Glucose [Mass/Vol] 126 mg/dL Normal [facility] Comment on above: Performed By: #### A 1C #### [facility] [address] [address] [address] Arjun Menjivar HbA1c (Bld) [Mass fraction] 6.0 % Normal 4.5-6.2 [facility] Comment on above: Performed By: #### A 1C #### [facility] [address] [address] [address] Arjun Menjivar IRON AND TIBCon 04-07-2022 % SATURATION 25.4 % Normal [facility] Comment on above: Performed By: #### F ETIBC, B12FOL #### [facility] [address] [address] [address] Arjun Menjivar Iron [Mass/Vol] 62.0 ug/dL Critically low 65.0-175.0 [facility] Comment on above: Performed By: #### F ETIBC, B12FOL #### [facility] [address] [address] [address] Arjun Menjivar TIBC DIRECT 244.0 ug/dL Critically low 250.0-450.0 [facility] Comment on above: Performed By: #### F ETIBC, B12FOL #### [facility] [address] [address] [address] Arjun Menjivar VIT B12 AND FOLATEon 022 Cobalamin (Vitamin B12) [Mass/Vol] 597.0 pg/mL Normal 193.0-986.0 [facility] Comment on above: Performed By: #### F ETIBC, B12FOL #### [facility] [address] [address] [address] Arjun Menjivar FOLATE 21.50 ng/mL Normal 8.60-58.90 [facility] Comment on above: Performed By: #### F ETIBC, B12FOL #### [facility] [address] [address] [address] Arjun Menjivar CBCon 03-16-2022 ABSOLUTE BAS 0.0 10*3/uL Normal 0.0-0.2 [facility] Comment on above: Result Comment: Test ing performed at [place] [address] Performed By: #### R ENF, ACBC, PT #### [place] [address] ABSOLUTE EOS 0.00 10*3/uL Normal 0.0-0.7 [facility] Comment on above: Performed By: #### R ENF, ACBC, PT #### [place] [address] ABSOLUTE NEUTROPHIL COUNT 8.5 10*3/uL High 1.4-6.5 [facility] Comment on above: Performed By: #### R ENF, ACBC, PT #### Testing performed at [address] [address] Basophils/100 WBC (Bld) 0.1 % Normal 0.0-2.0 [facility] Comment on above: Performed By: #### HUGH FARIA, PT #### Testing performed at [address] [address] DTYPE AUTO DIFF Normal [facility] Comment on above: Performed By: #### HUGH FARIA, PT #### Testing performed at [address] [address] Eosinophils/100 WBC (Bld) 0.0 % Normal 0.0-11.0 [facility] Comment on above: Performed By: #### HUGH FARIA, PT #### Testing performed at [address] [address] Lymphocytes (Bld) [#/Vol] 0.60 10*3/uL Low 1.2-3.4 [facility] Comment on above: Performed By: #### HUGH FARIA, PT #### Testing performed at [address] [address] Lymphocytes/100 WBC (Bld) 6.4 % Low 20.0-55.0 [facility] Comment on above: Performed By: #### HUGH FARIA, PT #### Testing performed at [address] [address] Monocytes (Bld) [#/Vol] 0.4 10*3/uL Normal 0.0-0.7 [facility] Comment on above: Performed By: #### HGUH FARIA, PT #### Testing performed at [address] [address] Monocytes/100 WBC (Bld) 4.1 % Normal 0.0-10.0 [facility] Comment on above: Performed By: #### HUGH FARIA, PT #### Testing performed at [address] [address] Neutrophils/100 WBC (Bld) 89.4 % High 37.0-75.0 [facility] Comment on above: Performed By: #### R HUGH MAGDALENO, PT #### [place] [address] Erythrocyte distribution width (RBC) [Ratio] 17.0 % High 11.5-14.5 [facility] Comment on above: Performed By: #### HUGH FARIA, PT #### [place] [address] Hematocrit (Bld) [Volume fraction] 33.9 % Low 42.0-52.0 [facility] Comment on above: Performed By: #### HUGH FARIA, PT #### [place] [address] Hemoglobin (Bld) [Mass/Vol] 11.7 g/dL Low 14.0-18.0 [facility] Comment on above: Performed By: #### HUGH FARIA, PT #### [place] [address] MCH (RBC) [Entitic mass] 30.0 pg Normal 26.0-35.0 [facility] Comment on above: Performed By: #### HUGH FARIA, PT #### [place] [address] MCHC (RBC) [Mass/Vol] 34.5 g/dL Normal 27.0-37.0 [facility] Comment on above: Performed By: #### HUGH FARIA, PT #### [place] [address] MCV (RBC) [Entitic vol] 87.2 fL Normal 80.0-100.0 [facility] Comment on above: Performed By: #### HUGH FARIA, PT #### [place] [address] Platelet mean volume (Bld) [Entitic vol] 9.2 fL Normal 7.4-11.0 [facility] Comment on above: Performed By: #### R RASTA ACBC, PT #### Testing performed at [address] [address] Platelets (Bld) [#/Vol] 154 10*3/uL Normal 130.0-400.0 [facility] Comment on above: Performed By: #### R ENF ACBC, PT #### Testing performed at [place] [id number] RBC (Bld) [#/Vol] 3.89 10*6/uL Low 4.0-6.1 [facility] Comment on above: Performed By: #### R ENF ACBC, PT #### Testing performed at [place] [id number] WBC (Bld) [#/Vol] 9.5 10*3/uL Normal 3.6-11.0 [facility] Comment on above: Performed By: #### R ENF ACBC, PT #### Testing performed at [place] [id number] CBC, EDIF, PLATELETon 2021 ABSOLUTE BASOPHIL COUNT 0.0 10*3/uL 0.0 - 0.2 10*3/uL [facility] Comment on above: Testing performed at [place], [place] [address] Basophils/100 WBC (Bld) 0.1 % 0.0 - 2.0 % [facility] Differential cell count method Nom (Bld) AUTO DIFF % [facility] Eosinophils (Bld) [#/Vol] 0.00 10*3/uL 0.0 - 0.7 10*3/uL [facility] Eosinophils/100 WBC (Bld) 0.0 % 0.0 - 11.0 % [facility] Erythrocyte distribution width (RBC) [Ratio] 17.0 % High 11.5 - 14.5 % [facility] Hematocrit (Bld) [Volume fraction] 33.9 % Low 42.0 - 52.0 % [facility] Hemoglobin (Bld) [Mass/Vol] 11.7 g/dL Low [facility] Interpretation and review of laboratory results Abnormal [facility] Lymphocytes (Bld) [#/Vol] 0.60 10*3/uL Low 1.2 - 3.4 10*3/uL [facility] Lymphocytes/100 WBC (Bld) 6.4 % Low 20.0 - 55.0 % [facility] MCH (RBC) [Entitic mass] 30.0 pg 26.0 - 35.0 PG [facility] MCHC (RBC) [Mass/Vol] 34.5 g/dL [facility] MCV (RBC) [Entitic vol] 87.2 fL [facility] Monocytes (Bld) [#/Vol] 0.4 10*3/uL 0.0 - 0.7 10*3/uL [facility] Monocytes/100 WBC (Bld) 4.1 % 0.0 - 10.0 % [facility] Neutrophils (Bld) [#/Vol] 8.5 10*3/uL High 1.4 - 6.5 10*3/uL [facility] Neutrophils/100 WBC (Bld) 89.4 % High 37.0 - 75.0 % [facility] Platelet mean volume (Bld) [Entitic vol] 9.2 fL [facility] Platelets (Bld) [#/Vol] 154 10*3/uL 130.0 - 400.0 10*3/uL [facility] RBC (Bld) [#/Vol] 3.89 10*6/uL Low 4.0 - 6.1 10*6/uL [facility] WBC (Bld) [#/Vol] 9.5 10*3/uL 3.6 - 11.0 10*3/uL [facility] PROTIMEon 03-16-2022 INR Coag (PPP) [Relative time] 1.37 {INR} High 0.85-1.10 [facility] Comment on above: Result Comment: 2.0-3.0 THERAPEUTIC RANGE 2.5-3.5 MECHANICAL VALVE RANGE Testing performed at [place] [address] Performed By: #### R ENF, ACBC, PT #### [place] [address] PT Coag (PPP) [Time] 16.9 s High 11.8-14.4 [facility] Comment on above: Performed By: #### R ENF, ACBC, PT #### Testing performed at [facility] [address] [place] [address] PROTIME-INRon 03-16-2022 INR Coag (PPP) [Relative time] 1.37 {INR} High [facility] Comment on above: 2.0-3.0 THERAPEUTIC RANGE 2.5-3.5 MECHANICAL VALVE RANGE Testing performed at [place] [address] Interpretation and review of laboratory results Abnormal [facility] PT Coag (PPP) [Time] 16.9 s [facility] RENAL FUNCTION PANELon 03-16 Albumin [Mass/Vol] 3.3 G/dl Low 3.5 - 5.0 G/dl [facility] Calcium [Mass/Vol] 7.9 mg/dL Low [facility] Chloride [Moles/Vol] 106 mmol/L [facility] Comment on above: Please note: Triglyc eride levels of 600mg/dL or higher may positively bias chloride results by approximately 2.1 mmol CO2 [Moles/Vol] 23 mmol/L [facility] Creatinine [Mass/Vol] 1.20 mg/dL [facility] GFR COMMENT Average GFR for 70+ years old = 75. [facility] Comment on above: Chronic Kidney disea se, GFR = <60. Kidney failure, GFR = <15. The GFR estimate is not adjusted for extreme body surface area or acute process, nor has it been validated for women or ethnic groups other than and . Testing performed at [place] [id number] GFR/1.73 sq M.predicted among blacks MDRD (S/P/Bld) [Vol rate/Area] 76 mL/min/{1.73_m2} ml/min/1.73 sq.m [facility] GFR/1.73 sq M.predicted among non-blacks MDRD (S/P/Bld) [Vol rate/Area] 63 mL/min/{1.73_m2} ml/min/1.73 sq.m [facility] Glucose post fast [Mass/Vol] 230 mg/dL [facility] Comment on above: NORMAL <100 mg/dL PREDIABETES 101-126 mg/dL DIABETES 126 mg/dL or higher Interpretation and review of laboratory results Abnormal [facility] Phosphate [Mass/Vol] 2.9 mg/dL [facility] Potassium [Moles/Vol] 4.5 mmol/L [facility] Sodium [Moles/Vol] 136 mmol/L Low [facility] Urea nitrogen [Mass/Vol] 22 mg/dL High [facility] RENAL PANEL,FASTINGon 2021 ALBUMIN 3.3 G/dl Low 3.5-5.0 [facility] Comment on above: Performed By: #### R HUGH MAGDALENO, PT #### [place] [address] Calcium [Mass/Vol] 7.9 mg/dL Low 8.4-10.2 [facility] Comment on above: Performed By: #### HUGH FARIA, PT #### [place] [address] Chloride [Moles/Vol] 106 mmol/L Normal 98-107 [facility] Comment on above: Result Comment: Alla noland note: Triglyceride levels of 600mg/dL or higher may positively bias chloride results by approximately 2.1 mmol Performed By: #### HUGH FARIA, PT #### [place] [address] CO2 [Moles/Vol] 23 mmol/L Normal 22-30 [facility] Comment on above: Performed By: #### HUGH FARIA, PT #### [place] [address] Creatinine [Mass/Vol] 1.20 mg/dL Normal 0.7-1.2 [facility] Comment on above: Performed By: #### HUGH FARIA, PT #### [place] [address] EST. GFR, 76 ml/min/1.73sq.m Normal [facility] Comment on above: Performed By: #### HUHG FARIA, PT #### [place] [address] EST. GFR,Non 63 ml/min/1.73sq.m Normal [facility] Comment on above: Performed By: #### HUGH FARIA, PT #### [place] [address] GFR Information Average GFR for 70+ years old = 75. Normal [facility] Comment on above: Result Comment: [employer] david Kidney disease, GFR = <60. Kidney failure, GFR = <15. The GFR estimate is not adjusted for extreme body surface area or acute process, nor has it been validated for women or ethnic groups other than and . Testing performed at [place] [address] Performed By: #### HUGH FARIA, PT #### [place] [address] Glucose [Mass/Vol] 230 mg/dL High 70-100 [facility] Comment on above: Result Comment: NORMAL <100 mg/dL PREDIABETES 101-126 mg/dL DIABETES 126 mg/dL or higher Performed By: #### HUGH FARIA, PT #### [place] [address] PHOSPHOROUS 2.9 MG/DL Normal 2.5-4.5 [facility] Comment on above: Performed By: #### HUGH FARIA, PT #### [place] [address] Potassium [Moles/Vol] 4.5 mmol/L Normal 3.5-5.1 [facility] Comment on above: Performed By: #### HUGH FARIA, PT #### [place] [address] Sodium [Moles/Vol] 136 mmol/L Low 137-145 [facility] Comment on above: Performed By: #### HUGH FARIA, PT #### [place] [address] Urea nitrogen [Mass/Vol] 22 mg/dL High 04-14 [facility] Comment on above: Performed By: #### R ENF, ACBC, PT #### [place] [address] GLUCOSE (POC DEVICE)on 03-15 GLUCOSE, POINT OF CARE 118 High [facility] Interpretation and review of laboratory results Abnormal [facility] Operator [facility] Comment on above: Testing performed at [address] MRSA SCREENon 03-15-2022 MRSA DNA HERIBERTO+probe Ql (Unsp spec) Not detected Normal NOT DETECTED [facility] Comment on above: Performed By: #### M RSAST #### [place] [address] STAPH AUREUS SCREEN Not detected Normal NOT DETECTED [facility] Comment on above: Result Comment: Test ing performed at [place] [address] Performed By: #### M RSAST #### [place] [address] NOVEL CORONAVIRUSon 03-15-20 22 NARRATIVE This test was perfor med using isothermal HERIBERTO and has been approved as Emergency Use Authorization (EUA) for the qualitative detection [id number] nucleic acid. Normal [facility] Comment on above: Result Comment: Test ing performed at [place] [address] Performed By: #### C OVID #### [place] [address] SARS-CoV-2 (COVID-19) RNA HERIBERTO+probe Ql (Unsp spec) Not detected Normal NOT DETECTED [facility] Comment on above: Result Comment: Nega [...] #### C OVID #### [place] [address] NOVEL CORONAVIRUS LAB 1 - NA SOPHARYNGEALon 03-15-2022 NARRATIVE -1 This test was perfor med using isothermal HERIBERTO and has been approved as Emergency Use Authorization (EUA) for the qualitative detection [id number] nucleic acid. [facility] Comment on above: Testing performed at [place] [address] SARS-CoV-2 (COVID-19) RNA HERIBERTO+probe Ql (Unsp spec) Not detected NOT DETECTED [facility] Comment on above: Negative results do not [...] patient is critically ill or clinically deteriorating. [facility] POCT GLUCOSEon 03-15-2022 Glucose [Mass/Vol] 118 mg/dL High 70-100 [facility] Comment on above: Performed By: #### P OCGLU #### [place] [address] HYDROPULPER Normal [facility] Comment on above: Result Comment: Test ing performed at [place] [address] Performed By: #### P OCGLU #### [place] [address] PROTIMEon 03-15-2022 INR Coag (PPP) [Relative time] 1.36 {INR} High 0.85-1.10 [facility] Comment on above: Result Comment: 2.0-3.0 THERAPEUTIC RANGE 2.5-3.5 MECHANICAL VALVE RANGE Testing performed at [place] [address] Performed By: #### P T #### [place] [address] PT Coag (PPP) [Time] 16.8 s High 11.8-14.4 [facility] Comment on above: Performed By: #### P T #### [place] [address] PROTIME-INRon 03-15-2022 INR Coag (PPP) [Relative time] 1.36 {INR} High [facility] Comment on above: 2.0-3.0 THERAPEUTIC RANGE 2.5-3.5 MECHANICAL VALVE RANGE Testing performed at [place] [address] Interpretation and review of laboratory results Abnormal [facility] PT Coag (PPP) [Time] 16.8 s High [facility] PTTon 03-15-2022 aPTT Coag (Bld) [Time] 28.7 s Normal 22.4-34.7 [facility] Comment on above: Result Comment: CARDIAC AND PE/DVT THERAPUTIC RANGE 69-97 SEC VASCULAR/THREATENED LIMB THERAPUTIC RANGE 80-112 SEC Testing performed at [place] [address] Performed By: #### P TT #### [place] [address] aPTT Coag (Bld) [Time] 28.7 s [facility] Comment on above: CARDIAC AND PE/DVT THERAPUTIC RANGE 69-97 SEC VASCULAR/THREATENED LIMB THERAPUTIC RANGE 80-112 SEC Testing performed at [address] SCREEN: MRSA ONLY, NARES (IS OLATION SCREEN)on 03-15-2022 MRSA isol Org specific cx Ql (Nose) Not detected NOT DETECTED [facility] STAPHYOCOCCUS AUREUS BY PCR Not detected NOT DETECTED [facility] Comment on above: Testing performed at [address] System TYPE AND SCREEN CROSSMATCH C ONVERTIBLEon 03-15-2022 TYPE AND SCREEN CROSSMATCH CONVERTIBLE WORKUP EXPIRES 03/18/2022,2359 ABO/RH(D) A POSITIVE ANTIBODY SCREEN NEGATIVE ARM BAND NUMBER [id number] Testing performed at [place], [place] [address] Normal [facility] Comment on above: Performed By: #### T SCC #### Testing performed at [facility] [address] [place] [address] TYPE AND SCREEN - POSSIBLE T RANSFUSIONon 03-15-2022 ABO and Rh group Nom (Bld ) Positive [facility] ARM BAND NUMBER [id number] [facility] ARM BAND NUMBER Testing performed at [address] Blood group antibody screen Ql Negative [facility] EXPIRATION DATE 03/18/2022,2358 [facility] XR KNEE RIGHT 2 VIEWSon 02-25 XR KNEE RIGHT 2 VIEWS EXAM: XR KNEE RIGHT 2 VIEWS HISTORY: COMPARISON: FINDINGS: Joint replacement is seen with overall preservation of normal alignment. No abnormal lucency is seen around the hardware. IMPRESSION: Joint replacement without hardware complication Normal [facility] XR Knee - right 2 Viewson [...] IMPRESSION IMPRESSION: Joint replacement without hardware complication [facility] Radiology Study observation (narrative) [facility] XR Knee - right 2 ViewsOrder ed By: Abel Resendiz on 03-15-2022 [facility] Work Phone: Operative Reporton 9 Operative Report MR#: [id number] [facility] Pt. Name: Tito Goncalves Room [...] form. The patient was brought to the laboratory phlebotomist and a transesophageal echocardiogram was performed under [...] Flores MD Date Trans: 06/14/2019 12:23 A/asad [id number] cc: Augustine Metz D.O. [address] [place] [id number] Ryan Cardenas M.D. [facility] [facility] Repor ton 06-21-2017 Health Services Clinic Report Type: OrthopedicDictated by: To be signed by: Transcribed by: Transcribed D/ Dictation D/ Report: DATE OF VISIT: 06/08/2017 Re: Tito Michjames HISTORY OF PRESENT ILLNESS: Patient is here today for followup. He is an established patient of [facility]. He is status post revision arthroplasty for [...] questions or concerns in the meantime. Normal [facility] Vital Signs Date Time Vital Sign Value Performing Clinician Facility 02-27-2024 [id number] Body height 172.72 cm DO Augustine Ball Work Phone: [facility] 02-27-2024 09:21-0400 Body mass index (BMI) [Ratio] 36.7 kg/m2 DO Augustine Ball Work Phone: [facility] 02-27-2024 09:21-0400 Body weight 109.48 kg DO Augustine Ball Work Phone: [facility] 02-27-2024 09:21-0400 Diastolic blood pressure 72 mm[Hg] DO Augustine Ball Work Phone: [facility] 02-27-2024 09:21-0400 Heart rate 60 /min DO Augustine Ball Work Phone: [facility] 02-27-2024 09:21-0400 Respiratory rate 12 /min DO Augustine Ball Work Phone: [facility] 02-27-2024 09:21-0400 Systolic blood pressure 152 mm[Hg] DO Augustine Ball Work Phone: [facility] 02-24-2024 17:02-0400 Diastolic blood pressure 70 mm[Hg] DO Augustine Ball Work Phone: [facility] 02-24-2024 17:02-0400 Heart rate 55 /min DO Augustine Ball Work Phone: [facility] 02-24-2024 17:02-0400 Respiratory rate 16 /min DO Augustine Ball Work Phone: [facility] 02-24-2024 17:02-0400 SaO2% (BldA) [Mass fraction] 97 % DO Augustine Ball Work Phone: [facility] 02-24-2024 17:02-0400 Systolic blood pressure 132 mm[Hg] DO Augustine Ball Work Phone: [facility] 02-24-2024 16:20-0400 Body temperature 98 [degF] DO Augustine Ball Work Phone: [facility] 02-24-2024 15:55-0400 Inhaled oxygen flow rate 8 L/min DO Augustine Ball Work Phone: [facility] 02-24-2024 15:38-0400 Body height 182.88 cm DO Augustine Ball Work Phone: [facility] 02-24-2024 15:38-0400 Body mass index (BMI) [Ratio] 32.5 kg/m2 DO Augustine Ball Work Phone: [facility] 02-24-2024 15:38-0400 Body weight 109 kg DO Augustine Ball Work Phone: [facility] 01-31-2024 15:34-0400 Body height 181.61 cm [facility] 01-31-2024 15:34-0400 Body mass index (BMI) [Ratio] 34.5 kg/m2 [facility] 01-31-2024 15:34-0400 Body weight 114.07 kg [facility] 01-31-2024 15:34-0400 Diastolic blood pressure 79 mm[Hg] [facility] 01-31-2024 15:34-0400 Heart rate 53 /min [facility] 01-31-2024 15:34-0400 Respiratory rate 12 /min [facility] 01-31-2024 15:34-0400 Systolic blood pressure 130 mm[Hg] [facility] 10-31-2023 10:30-0500 Body height Augustine Ball Other [employer] Other 10-31-2023 10:30-0500 Body mass index (BMI) [Ratio] 33.47 kg/m2 Augustine Ball Other [employer] Other 10-31-2023 10:30-0500 Body weight 110.41 kg Augustine Ball Other [employer] Other 10-31-2023 10:30-0500 Diastolic blood pressure 68 mm[Hg] Augustine Ball Other [employer] Other 10-31-2023 10:30-0500 Respiratory rate 12 /min Augustine Ball Other [employer] Other 10-31-2023 10:30-0500 Systolic blood pressure 122 mm[Hg] Augustine Ball Other [employer] Other 03-16-2023 11:19-0400 Body height 182.9 cm Azul aRchel 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 Work Phone: [employer] 03-16-2023 11:19-0400 Body mass index (BMI) [Ratio] 33.23 kg/m2 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 Phone: [employer] 03-16-2023 11:19-0400 Body temperature 97.2 [degF] Azul Rachel 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 Work Phone: [employer] 03-16-2023 11:19-0400 Body weight 111.13 kg 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 Phone: [employer] [facility] 01-05-2023 12:00-0400 Body height Augustine Ball Other [employer] Other 01-05-2023 12:00-0400 Body mass index (BMI) [Ratio] 33.36 kg/m2 Augustine Ball Other [employer] Other 01-05-2023 12:00-0400 Body weight 110.04 kg Augustine Ball Other [employer] Other 01-05-2023 12:00-0400 Diastolic blood pressure 70 mm[Hg] Augustine Ball Other [employer] Other 01-05-2023 12:00-0400 Respiratory rate 12 /min Augustine Ball Other [employer] Other 01-05-2023 12:00-0400 Systolic blood pressure 118 mm[Hg] Augustine Ball Other [employer] Other 10-04-2022 12:00-0500 Body height Augustine Ball Other [employer] Other 10-04-2022 12:00-0500 Body mass index (BMI) [Ratio] 33.44 kg/m2 Augustine Ball Other [employer] Other 10-04-2022 12:00-0500 Body weight 110.32 kg Augustine Ball Other [employer] Other 10-04-2022 12:00-0500 Diastolic blood pressure 78 mm[Hg] Augustine Ball Other [employer] Other 10-04-2022 12:00-0500 Respiratory rate 12 /min Augustine Ball Other [employer] Other 10-04-2022 12:00-0500 Systolic blood pressure 128 mm[Hg] Augustine Metz Other [facility] [employer] Other 10-01-2022 08:30-0500 Diastolic blood pressure 77 mm[Hg] [facility] Rojsa [facility] of D[facility]atology 10-01-2022 08:30-0500 Systolic blood pressure 132 mm[Hg] Damari Rojas Dept[facility] D[facility]atology 07-08-2022 11:47-0400 Body height 182.9 cm Pastor Bedoya MD Work Phone: [employer] 07-08-2022 11:47-0400 Body mass index (BMI) [Ratio] 33.23 kg/m2 Pastor Bedoya MD Work Phone: [employer] 07-08-2022 11:47-0400 Body weight 111.13 kg Pastor Bedoya MD Work Phone: [employer] [facility] 05-03-2022 08:48-0400 Blood Pressure Location [facility] 05-03-2022 08:48-0400 Diastolic blood pressure 67 mm[Hg] [facility] 05-03-2022 08:48-0400 Heart rate 70 /min [facility] 05-03-2022 08:48-0400 Respiratory rate 16 /min [facility] 05-03-2022 08:48-0400 Systolic blood pressure 120 mm[Hg] [facility] 04-08-2022 09:49-0400 Body height 182.9 cm Azul Rachel 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 Work Phone: [employer] 04-08-2022 09:49-0400 Body mass index (BMI) [Ratio] 33.23 kg/m2 Azul Rachel 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 Work Phone: [employer] 04-08-2022 09:49-0400 Body temperature 96.91 [degF] Azul Rachel 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 Work Phone: [employer] 04-08-2022 09:49-0400 Body weight 111.13 kg Azul Rachel APRN-NURSE PLASTICS Work Phone: [employer] [facility] 03-16-2022 11:00-0400 Body temperature 97.7 [degF] Pastor Bedoya MD Work Phone: [employer] [facility] 03-16-2022 11:00-0400 Diastolic blood pressure 70 mm[Hg] Pastor Bedoya MD Work Phone: [employer] 03-16-2022 11:00-0400 Heart rate 77 /min Pastor Bedoya MD Work Phone: [employer] 03-16-2022 11:00-0400 Respiratory rate 14 /min Pastor Bedoya MD Work Phone: [employer] 03-16-2022 11:00-0400 SaO2% (BldA) [Mass fraction] 96 % Pastor Bedoya MD Work Phone: [employer] 03-16-2022 11:00-0400 Systolic blood pressure 142 mm[Hg] Pastor Bedoya MD Work Phone: [employer] [facility] 03-15-2022 09:00-0400 Body height 182.9 cm Pastor Bedoya MD Work Phone: [employer] 03-15-2022 09:00-0400 Body mass index (BMI) [Ratio] 31.73 kg/m2 Pastor Bedoya MD Work Phone: [employer] 03-15-2022 09:00-0400 Body weight 106.14 kg Pastor Bedoya MD Work Phone: [employer] 2022 12:57-0400 Body height 182.9 cm Pastor Bedoya MD Work Phone: [employer] 2022 12:57-0400 Body mass index (BMI) [Ratio] 33.23 kg/m2 Pastor Bedoya MD Work Phone: [employer] 2022 12:57-0400 Body temperature 97.2 [degF] Pastor Bedoya MD Work Phone: [employer] 2022 12:57-0400 Body weight 111.13 kg Pastor Bedoya MD Work Phone: [employer] 11-04-2021 14:30-0500 Body height Carmen Femi Other [employer] Other 03-20-2020 11:06-0400 BMI (Body Mass Index) 33.63 kg/m2 [facility] [employer] 03-20-2020 11:06-0400 Body Temperature 97.5 [degF] [facility] [employer] 03-20-2020 11:06-0400 Body weight 112.49 kg [facility] [employer] 03-20-2020 11:06-0400 Height 182.9 cm [facility] [employer] 1945 00:00-0500 >na< Damari Rojas Dept. of Dermato logy Encounters Encounter Date Encounter Type Care Provider Facility Start: 03-22-2024 End: 03-22-2024 ambulatory [facility] Start: 03-16-2024 End: 03-16-2024 ambulatory [place] [facility] Start: 03-09-2024 End: 03-09-2024 ambulatory JOSE R DODD Not Available Start: 03-06-2024 End: 03-06-2024 ambulatory AUGUSTINE TERRELLK Not Available Start: 02-27-2024 End: 02-27-2024 ambulatory AUGUSTINE W NIDHIK Not Available Start: 02-27-2024 End: 02-27-2024 ambulatory DO Augustine Ball Work Phone: [facility] Work Phone: Start: 02-27-2024 End: 02-27-2024 Patient encounter procedure DO Augustine Ball Work Phone: [facility] Work Phone: Start: 02-24-2024 End: 02-24-2024 Admission to same day surgery center DO Augustine Ball Work Phone: [facility] [place] Start: 02-24-2024 End: 02-24-2024 ambulatory DO Augustine Ball Work Phone: [facility] Work Phone: Start: 02-16-2024 End: 02-16-2024 Patient encounter procedure DO Augustine Ball Work Phone: [facility] Work Phone: Start: 02-16-2024 End: 02-16-2024 ambulatory DO Augustine Ball Work Phone: [facility] Work Phone: Start: 02-16-2024 Encounter for preprocedural cardiovascular examination Augustine Freitas [facility] Start: 02-15-2024 End: 02-15-2024 ambulatory AUGUSTINE FREITAS Not Available Start: 02-15-2024 End: 02-15-2024 ambulatory CHRISTIN James HOANG Not Available Start: 02-09-2024 End: 02-09-2024 ambulatory [facility] Start: 01-31-2024 End: 01-31-2024 ambulatory [facility] Work Phone: Start: 01-31-2024 End: 01-31-2024 Patient encounter procedure [facility] Work Phone: Start: 01-31-2024 Non-patient / Non-visit [facility] Work Phone: Start: 01-29-2024 Evaluation and management of inpatient BRIGITTE PERRY [facility] Start: 01-27-2024 Evaluation and management of inpatient [facility] Start: 01-26-2024 Evaluation and management of inpatient [facility] Start: 01-26-2024 Evaluation and management of inpatient [facility] Start: 01-25-2024 Evaluation and management of inpatient [facility] Start: 01-25-2024 Evaluation and management of inpatient [facility] Start: 01-25-2024 Evaluation and management of inpatient [facility] Start: 01-25-2024 Evaluation and management of inpatient [facility] Start: 01-25-2024 Evaluation and management of inpatient [facility] Start: 01-24-2024 End: 01-29-2024 Evaluation and management of inpatient [facility] Start: 01-18-2024 Non-patient / Non-visit [facility] Work Phone: Start: 01-10-2024 End: 01-10-2024 ambulatory OSMAN SHAH Not Available Start: 12-30-2023 End: 12-30-2023 ambulatory JOSE R DODD Not Available Start: 12-16-2023 Non-patient / Non-visit [facility] Work Phone: Start: 11-01-2023 End: 11-01-2023 ambulatory Augustine Metz Other [facility] [employer] Other Start: 11-01-2023 Telephone encounter Augustine Metz [facility] Start: 10-31-2023 End: 10-31-2023 ambulatory Augustine Metz Other [employer] Other Start: 10-31-2023 Office outpatient vi sit 25 minutes Augustine Metz [facility] Start: 10-28-2023 Bamboo flowsheet Jose R Hogan Za hler DO Work Phone: [facility] Start: 10-28-2023 Bamboo flowsheet Jose R Hogan Za hler DO Work Phone: [facility] Start: 10-28-2023 End: 10-28-2023 ambulatory JOSE R CHURCHILLER Not Available Start: 10-24-2023 End: 10-24-2023 ambulatory [facility] Start: 09-16-2023 End: 01-24-2024 ambulatory [facility] Start: 09-06-2023 End: 09-06-2023 ambulatory [facility] Start: 08-29-2023 End: 08-29-2023 ambulatory JOSE R CHURCHILLER Not Available Start: 08-27-2023 End: 08-29-2023 ambulatory JOSE RANASTASIA CHURCHILLER Not Available Start: 08-26-2023 End: 08-26-2023 ambulatory JOSE RANASTASIA MAGUIREHLER Not Available Start: 07-11-2023 End: 07-11-2023 ambulatory Augustine Metz Other [employer] Other Start: 07-11-2023 Telephone encounter Augustine Metz [facility] Start: 07-10-2023 End: 07-10-2023 ambulatory Augustine Metz Other [employer] Other Start: 07-10-2023 Telephone encounter Augustine Metz [facility] Start: 07-05-2023 End: 07-05-2023 Emergency department patient visit Augustine Metz Facility:[facility] Start: 03-16-2023 ambulatory [facility] Start: 03-16-2023 End: 03-16-2023 Office outpatient visit 15 minutes Azul Rachel APRN-NURSE PLASTICS Work Phone: [facility] Comment on above: Hx of total knee art hroplasty, right (Primary Dx) Start: 03-16-2023 End: 03-16-2023 Subsequent hospital visit by physician Azul Rachel APRN-NURSE PLASTICS Work Phone: [facility] Start: 02-01-2023 ambulatory AUGUSTINE METZ Facilit y:[facility] Start: 01-24-2023 End: 02-23-2023 ambulatory SHAIKH Tiburcio PRICE Facility:[facility] Start: 01-22-2023 End: 01-22-2023 ambulatory Augustine Metz Other [employer] Other Start: 01-22-2023 Telephone encounter Augustine PHILIPPE [facility] Start: 2023 End: 01-22-[address] AUGUSTINE METZ Facility:[facility] Start: 01-05-2023 End: 01-05-2023 ambulatory Augustine Metz Other [employer] Other Start: 01-05-2023 Office outpatient vi sit 25 minutes Augustine Metz [facility] Start: 12-27-2022 End: 2023 ambulatory SHAIKH Tiburcio PRICE Facility:[facility] Start: 11-24-2022 End: 12-24-2022 ambulatory SHAIKH Tiburcio PRICE Facility:[facility] Start: 11-10-2022 End: 11-10-2022 ambulatory Augustine Metz Other [employer] Other Start: 11-10-2022 Telephone encounter Augustine PHILIPPE [facility] Start: 11-09-2022 Telephone encounter Augustine PHILIPPE [facility] Start: 11-09-2022 End: 11-10-2022 ambulatory AUGUSTINE METZ [facility] [employer] Other Start: 11-08-2022 ambulatory AUGUSTINE METZ Facilit y:[facility] Start: 11-01-2022 End: 11-02-[address] DOCTOR ABERNATHY Facility:[facility] Start: 10-28-2022 ambulatory AUGUSTINE METZ Facilit y:[facility] Start: 10-27-2022 End: 11-24-2022 ambulatory SHAIKH Tiburcio PRICE Facility:[facility] Start: 10-26-2022 End: 10-27-2022 ambulatory PUJA HOLBROOK MD Facility:[facility] Start: 10-19-2022 End: 10-20-[address] AUGUSTINE METZ Facility:[facility] Start: 10-04-2022 Damari Rojas Dept. of D Accumetricsatology Start: 10-04-2022 End: 10-04-2022 ambulatory Augustine Metz Other [employer] Other Start: 10-04-2022 Office outpatient vi sit 25 minutes Augustine Metz [facility] Start: 10-01-2022 ambulatory Ms. Osman Shah Facility:[id number] Start: 09-27-2022 End: 10-27-2022 ambulatory SHAIKH Tiburcio PRICE Facility:[facility]1 Start: 09-14-2022 Damari Rojas Dept. of [place] Start: 09-09-2022 Pre-procedure evaluation check Augustine Metz Other [employer] Other Start: 09-07-[address] Macario Bui Facility:[id number] Start: 08-26-2022 End: 09-26-2022 ambulatory SHAIKH Tiburcio PRICE Facility:[facility] Start: 07-27-2022 End: 08-25-2022 ambulatory SHAIKH Tiburcio PRICE Facility:[facility] Start: 07-13-2022 End: 07-14-[address] AUGUSTINE METZ Facility:[facility]1 Start: 07-08-2022 ambulatory PASTOR BEDOYA [facility] Start: 07-08-2022 End: 07-08-2022 Office outpatient visit 15 minutes Pastor Bedoya MD Work Phone: [facility] Comment on above: Hx of total knee art hroplasty, right (Primary Dx) Start: 07-08-2022 End: 07-08-2022 Subsequent hospital visit by physician Pastor Bedoya MD Work Phone: [facility] Start: 06-28-2022 End: 06-29-[address] AUGUSTINE METZ Facility:[facility]1 Start: 06-28-2022 End: 07-26-2022 ambulatory SHAIKH Tiburcio PRICE Facility:[facility]1 Start: 06-15-2022 End: 06-16-[address] AUGUSTINE METZ Facility:[facility] Start: 05-27-2022 End: 06-26-2022 ambulatory SHAIKH Tiburcio PRICE Facility:[facility]1 Start: 05-03-2022 End: 05-03-2022 Patient encounter procedure Mc Blackman [facility] Start: 04-26-2022 End: 04-27-[address] AUGUSTINE METZ Facility:[facility]1 Start: 04-26-2022 End: 05-26-2022 ambulatory SHAIKH Tiburcio PRICE Facility:[facility]1 Start: 04-19-2022 End: 05-08-[address] AUGUSTINE METZ Facility:[facility]1 Start: 04-08-2022 ambulatory AZUL RACHEL [facility] Start: 04-08-2022 End: 04-08-2022 Postop follow up visit related to original px Azul LAN Work Phone: [facility] Comment on above: Hx of total knee art hroplasty, right (Primary Dx) Start: 04-08-2022 End: 04-08-2022 Subsequent hospital visit by physician Azul LAN Work Phone: [facility] Start: 04-07-2022 End: 04-08-[address] AUGUSTINE METZ Facility:[facility]1 Start: 03-26-2022 End: 04-23-2022 ambulatory SHAIKH Tiburcio PRICE Facility:[facility]1 Start: 03-15-2022 End: 03-16-2022 Patient encounter status Pastor Bedoya MD Work Phone: [facility] Start: 03-15-2022 End: 03-16-2022 Subsequent hospital visit by physician Pastor Bedoya MD Work Phone: [facility] Comment on above: S/P total knee arthr oplasty, right Start: 2022 End: 2022 Office outpatient new 60 minutes Pastor Bedoya MD Work Phone: [facility] Comment on above: Right knee pain, uns pecified chronicity (Primary Dx); Pain in prosthetic joint, sequela Start: 2022 End: 2022 Subsequent hospital visit by physician Pastor Bedoya MD Work Phone: [facility] Start: 11-04-2021 End: 11-04-2021 ambulatory Carmen Kahn Other [employer] Other Start: 11-04-2021 Office outpatient vi sit 25 minutes Carmen Kahn [facility] Start: 11-03-2021 End: 11-03-2021 ambulatory Carmen Kahn Other [employer] Other Start: 11-03-2021 Telephone encounter Carmen Kahn [facility] G[facility] Start: 03-20-2020 End: 03-20-2020 Office outpatient visit 15 minutes Pastor Bedoya Work Phone: [facility] Comment on above: 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) Start: 03-20-2020 End: 03-20-2020 Subsequent hospital visit by physician Azul LAN Work Phone: [facility] Start: 06-13-2019 End: 06-14-2019 Patient encounter procedure GENE JONES Facility:[facility] Procedures Date Procedure Procedure Detail Performing Clinician Start: 02-24-2024 Excision of lesion of cheek DO Augustine Metz Work Phone: Start: 10-28-2023 Computerized ophthalmic imaging retina Jose [...] Phone: Start: 03-16-2022 Renal function panel Domenico eFrguson MD Work Phone: Start: 03-15-2022 Radiologic examination knee 1/2 views Samantha Miner Work Phone: Start: 03-15-2022 End: 03-15-2022 Arthrp kne condyle&platu medial&lat compartments Pastor Bedoya MD Work Phone: Start: 03-15-2022 Prothrombin time Azul Rachel 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-[employer] Work Phone: Start: 03-15-2022 Cultyp nuc acid amp prb cult/isolate ea orgnism Azul Rachel 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-[employer]UR[employer] Work Phone: Start: 03-15-2022 Sars-cov-2 detection by dna/rna Azul ramirez 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[employer] Work Phone: Start: 03-15-2022 Antibody screen rbc each serum technique Pastor Bedoya MD Work Phone: Start: 03-15-2022 End: 03-15-2022 Thromboplastin time partial plasma/whole blood Azul Rachel 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-[employer]UR[employer] Work Phone: Start: 01-10-2020 Renal lithotripsy Mc ALMONTE Start: 10-23-2019 Cystoscopic removal of ureteric stent Mc ALMONTE Start: 09-26-2019 Endoscopic retrograde cholangiopancreatography Mc ALMONTE Cholecystectomy [facility] Colonoscopy Mc ALMONTE Depression screening Ramirez Metz Other Total knee replacement Ro ALMONTE Plan of Treatment Date Care Activity Detail Author Start: 02-24-2024 End: 02-24-2024 [facility] Start: 01-10-2024 End: 01-10-2024 Patient encounter procedure 01/10/2024 9:35 AM EDT Office Visit [facility] [address] [place] [address] Osman Shah 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[employer] [address] [place] [address] [facility] Start: 10-28-2023 End: 10-28-2023 Patient encounter procedure 10/28/2023 9:30 AM EST Procedure Visit [facility] [address] [place] [id number] Jose R Dodd DO [address] [place] [address] [facility] Comment on above: Arrived Start: 05-27-2023 Influenza vaccination Influenza Vacc ine (#1) [facility] Start: 03-16-2023 End: 03-16-2023 Patient encounter procedure 03/16/2023 Office Visit Orthopaedics Azul Rachel, 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-[employer] [address] [place] [address] [facility] Start: 10-22-2022 COVID-19 VACCINE (6 - Pfizer series) COVID-19 VACCINE (6 - Pfizer series) [facility] Start: 08-21-2022 Hemoglobin A1c measurement HBA1C TEST [facility] Start: 07-08-2022 End: 07-08-2022 Patient encounter procedure 07/08/2022 Office Visit Orthopaedics Pastor Bedoya MD [address] [place] [address] [facility] Start: 05-27-2022 Influenza vaccination A [facility] Start: 04-08-2022 End: 04-08-2022 Patient encounter procedure 04/08/2022 Office Visit Orthopaedics Azul Rachel, 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-TOBI [address] [place] [address] [facility] Start: 02-18-2022 End: 02-18-2022 ambulatory 02/18/2022 Pre-Operative Nurse Assessment Internal Medicine [facility] Start: 05-27-2020 Influenza vaccination INFLUENZ A VACCINE (Season Ended) [facility] Start: 12-25-2014 Pneumococcal vaccination PNEUMOCOCCAL VACCINE SERIES (2 - PCV) [facility] Start: 12-25-2014 Pneumococcal Vaccine : 65+ Years (2 - PCV) Pneumococcal Vaccine: 65+ Years (2 - PCV) [facility] Start: 2011 Abdominal aortic aneurysm screening ABDOMINAL AORTIC ANEURYSM HIGH RISK SCREEN [facility] Start: 2011 Pneumococcal vaccination [facility] Start: 01-22-1996 Colonoscopy COLORECTAL CAN CER SCREENING DISCUSSION [facility] Start: 01-22-1996 Prostate specific antigen measurement PROSTATE CANCER SCREENING DISCUSSION [facility] Start: 01-22-1996 Zoster vaccine hzv live for subcutaneous use ZOSTER (SHINGLES) VACCINE (1 of 2) [facility] Start: 1991 Colonoscopy COLORECTAL CAN CER SCREENING DISCUSSION [facility] Start: 1991 Screening for malignant neoplasm of colon COLORECTAL CANCER SCREENING DISCUSSION [facility] Start: 1986 Fasting lipid profile LIPID SCREENIN G [facility] Start: 1965 Third diphtheria, tetanus and acellular pertussis (DTaP) vaccination TDAP (ADULT) [facility] Start: 01-22-1964 Tetanus vaccination TETANUS [facility] Start: 1951 COVID-19 VACCINE (#1) COVID-19 VACCI NE (#1) [facility] Start: 1946 COVID-19 VACCINE (#1) COVID-19 VACCI NE (#1) [facility] Start: 1946 Diabetic foot examination DIABETIC FOOT EXAM [facility] Start: 1946 Diabetic retinal eye exam EYE EXAM [facility] Start: 1946 Glaucoma screening EYE EXAM [facility] Start: 1946 Hepatitis B vaccination HEP B VACCINE (1 of 3 - 3-dose series) [facility] Start: 1946 Hepatitis C antibody , confirmatory test HEPATITIS C VIRUS SCREENING [facility] Start: 1946 Hepatitis C screening HEPATITI S C VIRUS SCREENING [facility] Start: 1946 Lipid panel LIPIDS [facility] Start: 1946 LIPIDS LIPIDS [facility] Start: 1946 Microalbumin measurement, urine, quantitative URINE MICROALBUMIN TEST [facility] Start: 1946 Potassium [Moles/Vol] POTASSIUM A [facility] Start: 1946 Tetanus vaccination TETANUS [facility] Start: 1946 Urine screening for protein URINE MICROALBUMIN TEST [facility] Patient Education Know your Meds [facility] Work Phone: Patient referral [facility] Work Phone: Radiography for bone length studies XR BONE LENGTH STUDY Imaging Routine Hx of total knee arthroplasty, right 07/08/2022 11:01 AM EDT [facility] Work Phone: SURGICAL PATHOLOGY REQUEST SURGICAL PATHOLOGY REQUEST Surg Path Routine Osteoarthritis of right knee, unspecified osteoarthritis type Release Upon Ordering for 1 Occurrences starting 03/15/2022 [facility] Work Phone: Comment on above: Release Upon Orderin g for 1 Occurrences starting 03/15/2022 X-ray of left knee XR KNEE LEFT 3 VIEWS Imaging Routine History of revision of total replacement of left knee joint 03/20/2020 10[facility] [facility] - [facility] 3 Views XR KNEE L EFT 3 VIEWS Imaging Routine Pain in prosthetic joint, sequela 2022 1:09 PM EDT [facility] XR Knee - right 3 Views XR KNEE RIGHT 3 VIEWS Imaging Routine Hx of total knee arthroplasty, right 04/08/2022 10:04 AM EDT [facility] XR Knee - right 3 Views XR KNEE RIGHT 3 VIEWS Imaging Routine Hx of total knee arthroplasty, right 07/08/2022 11:01 AM EDT [facility] XR Knee - right 3 Views XR KNEE RIGHT 3 VIEWS Imaging Routine Hx of total knee arthroplasty, right 03/16/2023 11:03 AM EDT [facility] [employer] XR Knee - right 4 Views XR KNEE RIGHT 4+ VIEWS Imaging Routine Right knee pain, unspecified chronicity 2022 12:51 PM EDT [facility] Immunizations Immunization Date Immunization Notes Care Provider Dunia burrell 12-27-2023 COVID-19 (PFIZER) 12Y and older DO Augustine Ball Work Phone: [facility] 07-08-2023 influenza virus vaccine, unspecified formulation [facility] 07-08-2023 influenza, high dose seasonal, preservative-free Augustine Ball Other [facility] [employer] Other 06-21-2023 COVID-19 (PFIZER) 12Y and older DO Augustine Ball Work Phone: [facility] 03-03-2023 zoster vaccine recombinant Augustine Ball Other [facility] 01-01-2023 zoster vaccine recombinant Augustine Ball Other [facility] 06-29-2022 influenza, high dose seasonal, preservative-free Augustine Ball Other [facility] [employer] Other 06-29-2022 influenza virus vaccine, split virus (incl. purified surface antigen) Augustine Ball Other [facility] [employer] Other 06-29-2022 influenza virus vaccine, unspecified formulation Jose R Dodd DO Work Phone: [facility] 06-22-2022 COVID-19 Pfizer (bivalent) Augustine Ball Other [facility] 04-17-2022 COVID-19 Comirnaty (Pfizer) Tri-Sucrose 12+ DO Augustine Metz Work Phone: [facility] 07-15-2021 influenza virus vaccine, split virus (incl. purified surface antigen) Augustine Metz Other [facility] [employer] Other 07-15-2021 influenza virus vaccine, unspecified formulation [facility] 06-22-2021 COVID-19 Vaccine Pfi zer - Documentation Purposes Only Augustine Metz Other [facility] 11-20-2020 COVID-19 Vaccine Pfi zer - Documentation Purposes Only Augustine Isaías Other [facility] 10-30-2020 COVID-19 Vaccine Pfi zer - Documentation Purposes Only Augustine Metz Other [facility] 07-01-2020 influenza virus vaccine, split virus (incl. purified surface antigen) Augustine Isaías Other [facility] [employer] Other 07-01-2020 influenza virus vaccine, unspecified formulation [facility] 07-06-2019 influenza virus vaccine, split virus (incl. purified surface antigen) Augustine Metz Other [facility] [employer] Other 07-06-2019 influenza virus vaccine, unspecified formulation [facility] 07-12-2018 influenza virus vaccine, split virus (incl. purified surface antigen) Augustine Metz Other [facility] [employer] Other 07-12-2018 influenza virus vaccine, unspecified formulation [facility] 07-25-2017 influenza virus vaccine, split virus (incl. purified surface antigen) Augustine Isaías Other [facility] [employer] Other 07-25-2017 influenza virus vaccine, unspecified formulation [facility] 07-07-2016 influenza virus vaccine, split virus (incl. purified surface antigen) Augustine Metz Other [facility] [employer] Other 07-07-2016 influenza virus vaccine, unspecified formulation [facility] 07-18-2015 pneumococcal conjuga te vaccine, 13 valent Augustine Metz Other [facility] 06-11-2015 influenza virus vaccine, split virus (incl. purified surface antigen) Augustine Metz Other [facility] [employer] Other 06-11-2015 influenza virus vaccine, unspecified formulation [facility] 06-17-2014 tetanus and diphther ia toxoids, adsorbed, preservative free, for adult use (5 Lf of tetanus toxoid and 2 Lf of diphtheria toxoid) Augustine Isaías Other [facility] 08-28-2013 pneumococcal polysaccharide vaccine, 23 valent Augustine Metz Other [facility] 07-26-2013 tetanus and diphther ia toxoids, adsorbed, preservative free, for adult use (5 Lf of tetanus toxoid and 2 Lf of diphtheria toxoid) Augustine Isaías Other [facility] 07-18-2013 zoster vaccine, live Ramirez Metz Other [facility] 1945 pneumococcal conjuga te vaccine, 7 valent Damari Rojas [facility]at[facility] Payers Date Payer Category Payer Self-pay [id number] 2017 Unknown [employer] [id number] 2017-Present [id number]. [id number] 2010 Medicare MEDICARE MEDICAR E A AND B [id number] 2010-Present [place], [place] [id number]. [id number] 2008 Medicare [id number]. 1.13.172.2.7.3. [id number] 2008 Unknown [id number]. 1.13.172.2.7.3. [id number] 1959 Medicare [id number] 2.16.840.1.677395.19 1959 Unknown [id number] 1946 Unknown [id number] 2.16.840.1.647526.3.579.2.647 1946 Unknown [id number] 2.16.840.1.092616.3.579.2.356 1946 Unknown [id number] 2.16.840.1.097064.3.579.2.356 1946 Unknown [id number] 2.16.840.1.918344.3.579.2.159 1946 Unknown [id number] 2.16.840.1.748029.3.579.2.159 1946 Unknown [id number] 2.16.840.1.622647.3.579.2.159 1946 Unknown [id number] 2.16.840.1.585072.3.579.2.159 1946 Unknown [id number] 2.16.840.1.110237.3.579.2.159 1946 Unknown [id number] 2.16.840.1.967272.3.579.2.593 1946 Unknown [id number] 2.16.840.1.751314.3.579.2.593 1946 Unknown [id number] 2.16.840.1.687143.3.579.2.593 1946 Unknown [id number] 2.16.840.1.689720.3.579.2.593 1946 Unknown [id number] 2.16.840.1.560866.3.579.2.593 1946 Unknown [id number] 2.16.840.1.842528.3.579.2.593 1946 Unknown [id number] 2.16.840.1.400891.3.579.2.593 1946 Unknown [id number] 2.16.840.1.482200.3.579.2.593 1946 Unknown [id number] 2.16.840.1.130198.3.579.2.593 1946 Unknown [id number] 2.16.840.1.263348.3.579.2.593 1946 Unknown [id number] 2.16.840.1.938145.3.579.2.593 1946 Unknown [id number] 2.16.840.1.423454.3.579.2.593 1946 Unknown [id number] 2..840.1.316599.3.579.2.593 1946 Unknown [id number] 2.16.840.1.460287.3.579.2.593 1946 Unknown [id number] 2.16.840.1.449415.3.579.2.593 1946 Unknown [id number] 2.16.840.1.263555.3.579.2.593 1946 Unknown [id number] 2.16.840.1.193771.3.579.2.593 1946 Unknown [id number] 2.16.840.1.806991.3.579.2.593 1946 Unknown [id number] 2.16.840.1.883562.3.579.2.593 1946 Unknown [id number] 2.16.840.1.993946.3.579.2.593 1946 Unknown [id number] 2.16.840.1.481386.3.579.2.983 1946 Unknown [id number] 2.16.840.1.074813.3.579.2.983 1946 Unknown [id number] 2.16.840.1.992883.3.579.2.983 1946 Unknown [id number] 2.16.840.1.651343.3.579.2.983 1946 Unknown [id number] 2.16.840.1.307072.3.579.2.983 1946 Unknown [id number] 2.16.840.1.367538.3.579.2.983 1946 Unknown [id number] 2.16.840.1.174925.3.579.2.718 1946 Unknown [id number] 2.16840.1.146512.3.579.2.125 1946 Unknown [id number] 2.16.840.1.702356.3.579.2.1259 1946 Unknown [id number] 2.16.840.1.356248.3.579.2.1259 1946 Unknown [id number] 2.16.840.1.958134.3.579.2.1259 1946 Unknown [id number] 2.16.840.1.396278.3.579.2.1259 1946 Unknown [id number] 2.16.840.1.531452.3.579.2.1259 1946 Unknown [id number] 2.16.840.1.899865.3.579.2.1259 1946 Unknown [id number] 2.16.840.1.734613.3.579.2.1259 1946 Unknown [id number] 2.16.840.1.680616.3.579.2.1259 1946 Unknown [id number] 2.16.840.1.830679.3.579.2.1259 1946 Unknown [id number] 2.16.840.1.052449.3.579.2.1259 Medicare [id number] Unknown [facility] [id number] Unknown [id number] 2.16.840.1.626891.3.579.2.531 Unknown [id number] 2.16.840.1.020903.3.579.2.531 Social History Date Type Detail Facility Start: 03-20-2020 End: 02-24-2024 Tobacco smoking status NHIS Former smoker [facility] End: 02-08-1983 History of tobacco use Current smoker [employer] Start: 03-20-2020 End: 07-08-2022 Tobacco use and exposure Former user [employer] End: 02-08-2003 History of tobacco use User of smokeless tobacco [facility] Start: 03-20-2020 End: 03-16-2023 Alcohol intake Current non-drinker of alcohol (finding) [facility] Start: 1945 Sex Assigned At Not on file A PATRICIA [facility] Start: 03-05-2022 End: 03-15-2022 Exposure to SARS-CoV-2 (event) Not sure [facility] Start: 03-16-2023 End: 06-30-2023 Sex Assigned At [facility] Other Start: 05-03-2022 End: 12-16-2023 Tobacco smoking status Never smoked tobacco (finding) [facility] End: 02-08-1983 History of tobacco use Cigarette Smoker [facility] Start: 09-14-2022 Dept. of D ermatology Start: 1945 Sex Assigned At Male F [facility] Start: 03-16-2023 End: 06-30-2023 History of Social function [facility] Gender identity Identifies as ma le gender (finding) [facility] Start: 08-29-2023 End: 10-28-2023 Alcohol intake Lifetime non-drinker (finding) [facility] Start: 06-23-2023 Alcohol Comment caffeine: soda [facility] Medical Equipment Procedure Code Equipment Code Equipment Origin al Text Equipment Identifier Dates Attune Tibial In sert Fixed Bearing Posterior Stabilized [id number] Start: 03-15-2022 Blood Sugar Diagnostic (Accu-Chek Prachi Plus Test Strp) strip Start: 12-19-2023 Blood Sugar Diagnostic (Accu-Chek Prachi Plus Test Strp) strip Start: 12-16-2023 End: 12-19-2023 Blood Sugar Diagnostic (Accu-Chek Prachi Plus Test Strp) strip Start: 12-16-2023 End: 12-16-2023 Blood Sugar Diagnostic (Accu-Chek Prachi Plus Test Strp) strip Start: 12-19-2023 Blood Sugar Diagnostic (Accu-Chek Prachi Plus Test Strp) strip Start: 12-16-2023 End: 12-19-2023 Blood Sugar Diagnostic (Accu-Chek Prachi Plus Test Strp) strip Start: 12-16-2023 End: 12-16-2023 Blood Sugar Diagnostic (Accu-Chek Prachi Plus Test Strp) strip Start: 12-19-2023 Blood Sugar Diagnostic (Accu-Chek Prachi Plus Test Strp) strip Start: 12-16-2023 End: 12-19-2023 Blood Sugar Diagnostic (Accu-Chek Prachi Plus Test Strp) strip Start: 12-16-2023 End: 12-16-2023 Blood Sugar Diagnostic (Accu-Chek Prachi Plus Test Strp) strip Start: 12-19-2023 Blood Sugar Diagnostic (Accu-Chek Prachi Plus Test Strp) strip Start: 12-16-2023 End: 12-19-2023 Blood Sugar Diagnostic (Accu-Chek Prachi Plus Test Strp) strip Start: 12-16-2023 End: 12-16-2023 Goals Date Patient Goal Desired Activity /State Functional Status Date Assessment Result Facility 05-03-2022 Functional Status N/A [facility] Clinical Notes 11-04-2021 to 03-22-2024 Note Date & Type Note Facility 03-22-2024 Note [facility] Subjective Tito Goncalves is a 79 y.o. year old male patient being seen for follow up JESSICA s/p LAAO device implantation on 01/24/2024. Still doing very well. Patient Active Problem List Diagnosis Atrial fibrillation [...] of Amulet left atrial appendage closure device Basal cell carcinoma of face Calculus of gallbladder Calculus of kidney Choledocholithiasis Obesity Type 2 diabetes mellitus with hyperglycemia (CMS/HCC) Family History Problem Relation Name Age of Onset Cancer Mother Heart attack Other Social History Tobacco Use Smoking status: Former Types: Cigarettes Smokeless tobacco: Never Substance Use Topics Alcohol use: Not Currently HPI Tito is seen in follow-up. He is a 79-year-old man with history of paroxysmal atrial fibrillation, it started in 2012. He was maintained on warfarin for anticoagulation and propafenone for rhythm control. He has history of hypertension on treatment. He has history of obstructive sleep apnea. He has diabetes and used to be on metformin but currently controlled on diet. In April 2019 he presented to the [facility] with atrial fibrillation with controlled ventricular response. In December 2022 he fell and sustained a subsequent brain bleed. He was placed back on warfarin few weeks later. He then fell again recently and was evaluated in the emergency room because of head trauma and abrasions to the face. on 01/24/2024 he underwent left atrial appendage closure using a 28 mm Amplatzer amulet device. The day after the procedure he developed a pericardial effusion and underwent pericardiocentesis. He did well. He developed Afib that resolved with amiodarone and propafenone was stopped. On 03/16/2024 he underwent transesophageal echocardiogram for the 6-week post left atrial appendage closure follow-up. This showed that the device was in place without any. Device leak or device related thrombus. There was complete closure of the left atrial appendage. There was no pericardial effusion. Today he is seen in follow-up. He reports that he has been doing well. He has mild lower extremity swelling mostly in the mornings that is not bothering him. Review of Systems Constitutional: Positive for malaise/fatigue. Cardiovascular: Positive for leg swelling (resolves by morning). Hematologic/Lymphatic: Bruises/bleeds easily. Musculoskeletal: Positive for arthritis, back pain and myalgias. All other systems reviewed and are negative. Objective Visit Vitals BP 134/70 (BP Location: Left arm, Patient Position: Sitting) Pulse 54 Ht 1.829 m (6') Wt 110 kg (243 lb) SpO2 97% BMI 32.96 kg/m??? Smoking Status Former BSA 2.36 m??? Physical Exam Constitutional: Appearance: He is [...] Behavior is cooperative. Judgment: Judgment normal. Allergies Morro (more content not included)... [facility] 03-16-2024 Note Patient: Tito mejia Procedure Information Date/Time: 03/16/24 1030 Procedure: TRANSESOPHAGEAL ECHO (JESSICA) Location: [facility] Vascular Lab Clinical information reviewed: Allergies Meds Physical Exam Airway Mallampati: II TM distance: >3 FB Neck ROM: full Cardiovascular Rhythm: regular Rate: normal Dental Pulmonary Abdominal Anesthesia Plan ASA 3 other (Conscious sedation.) Anesthetic plan and risks discussed with patient. Use of blood products discussed with patient who consented to blood products. Additional Equipment Requests [facility] 02-09-2024 Note Patient here for fol low up LAAO and pericardial effusion. Still denies chest pain, SOB, palpitations, and lightheadedness/syncope. Doing very well. Review of Systems Constitutional: Positive for malaise/fatigue. Cardiovascular: Positive for leg swelling (resolves by morning). Hematologic/Lymphatic: Bruises/bleeds easily. Musculoskeletal: Positive for arthritis, back pain and myalgias. All other systems reviewed and are negative. [facility] 02-09-2024 Note Cardiovascular Medic [facility] SUBJECTIVE Chief Complaint Patient presents with [...] lower leg: Naman (more content not included)... [facility] 01-29-2024 Note Patient discharged w ith family. Patient provided copy of AVS and discharge instructions. All questions and concerns addressed. All belongings with patient [facility] 01-29-2024 Note Hospital Medicine Discharge [...] In April 2019 he presented to the [facility] with atrial fibrillation with controlled ventricular [...] switched propafenon to amiodarone. - Not on fci AC due to hx of falls and hx of left atrial appendage. Continue aspirin and Plavix. # EDEN, prerenal, improved. # HTN: - Continue Coreg. Amlodipine was d/oralia due to soft BP. Dear Dr. Isaías MD, Tito is advised to follow up with you within 1-2 weeks. Follow-up with: Cardiology Scheduled appointments: Future Appointments Date Time Provider Department Center 02/09/2024 9:40 AM Madison Paul NP [facility] 03/16/2024 10:30 AM [facility] FERMENTING CELLARS RECEIVER HOLDING ROOM [facility] Your medication list START taking these medications [...] Medications These medications were sent to [facility] - [place], [place] - [address] [place] [address] [place] [address], [facility] [address] amiodarone 200 mg tablet clopidogrel 75 mg tablet Tito is allergic to iodine, penicillins, shellfish containing products, and sulfa (sulfonamide antibiotics). Disposition: Home-Health Care [facility] (06) Discharge Condition: Stable Code Status: Full Code Diagnostic Results Hematology: Results from last 7 days Lab Units 01/29/24 0601/28/24 0501/26/24 0333 01/25/24 0456 01/25/24 0438 01/24/24 1056 [...] last 7 days Lab Units 01/29/24 0601/28/24 0501/27/24 0550 SODIUM mmol/L 140 138 137 POTASSIUM [...] oriented x3. Cardiology: (more content not included)... [facility] 01-29-2024 Note Cardiology Progress Note [...] 86 QT Interval 316 QTC CALCULATION(BAZETT) 453 R-[place] 8 T Wave [place] 100 Impression Atrial fibrillation with rapid ventricular [...] (TTE) limited Result Date: 01/27/2024 1 1 [facility] Heart Station [address] [place] [address] [phone] (fax) Echocardiogram-[facility] Name: TITO GONCALVES Study Date: 01/27/2024 08:18 AM B/P: 147 mmHg/62 mmHg HR: 67 bpm Date of : 1945 Location: [facility] Height: 72 in. Age: 79 year(s) Patient Room: 316 Weight: 244 lb. Gender: Male Patient Status: [...] fibrinous material noted. Procedure Staff Reading Group: [facility] Market President: Daniela Shoots, BS, RDCS Ordering Physician: LIONEL MENA Transthoracic echo (TTE) limited Result Date: 01/26/2024 1 1 [facility] Heart Station [address] [place] [address] [phone] (fax) Echocardiogram-[facility] Name: TITO GONCALVES Study Date: 01/26/2024 07:59 AM B/P: 129 mmHg/74 mmHg HR: Date of : 1945 Location: [facility] Height: 72 in. Age: 79 year(s) Patient [...] atrium appears e (more content not included)... [facility] 01-28-2024 Note Cardiology Progress Note [...] 86 QT Interval 316 QTC CALCULATION(BAZETT) 453 R-[place]st[place] 8 T Wave [place] 100 Impression Atrial fibrillation with rapid ventricular [...] (TTE) limited Result Date: 01/27/2024 1 1 [facility] Heart [facility] [address] [place] [address] [phone] (fax) Echocardiogram-[facility] Name: TITO GONCALVES Study Date: 01/27/2024 08:18 AM B/P: 147 mmHg/62 mmHg HR: 67 bpm Date of : 1945 Location: [facility] Height: 72 in. Age: 79 year(s) Patient Room: [facility] Weight: 244 lb. Gender: Male Patient Status: [...] fibrinous material noted. Procedure Staff Reading Group: [facility] Market President: MARLEY Donohue, RDCS Ordering Physician: LIONEL MENA Transthoracic echo (TTE) limited Result Date: 01/26/2024 1 1 [facility] Heart Station [address] [place] [address] [phone] (fax) Echocardiogram-[facility] Name: TITO GONCALVES Study Date: 01/26/2024 07:59 AM B/P: 129 mmHg/74 mmHg HR: Date of : 1945 Location: [facility] Height: 72 in. Age: 79 year(s) Patient [...] size. Right ventr (more content not included)... [facility] 01-28-2024 Note Physical Therapy Physical Therapy Evaluation & Treatment Patient Name: Tito Goncalves : 1945 Today's Date: 01/28/2024 Time in: 1:53 pm Time out: 2:20 pm Total time: 27 minutes 01/28/24 1422 PT Last Visit PT Received On 01/28/24 General Subjective Both RN and pt agreeable to PT this afternoon. Pt denies pain and asleep upon specification writer entering room however easily awakens. Cognition Overall Cognitive Status WFL Arousal/Alertness Appropriate responses to stimuli Orientation Level Oriented X4 Following Commands Follows all commands and directions without difficulty Communication Intact Cognition Comments pt had difficulty navigating back to correct room after first bout of ambulation however after 2nd bout able to navigate back to room without external cues from specification writer. Therapeutic Exercise Therapeutic Exercise Time Entry [...] tray table within reach. PT Assessment PT Assessment/ANESTHESIOLOGIST ASSISTANT CERTIFIED Summary Pt continues to progress towards goals [...] (from Physical Therapy) Active Problems Problem: PT [facility] Start Date: 01/27/24 Goal Start Date Expected [...] vital signs throughout session 01/27/24 02/10/24 -- [facility] 01-28-2024 Note Hospital Medicine Daily Progress Note - 01/28/2024 11:20 AM; Room: [address] [place] [address] Admission: 01/24/2024 10:46 AM; Length of stay: 4 days THE HOSPITALIST TEAM PREFERS TO USE [employer] FOR COMMUNICATION 7AM-7PM. IF I DO NOT RESPOND WITHIN 15 MINUTES, PLEASE PAGE ME/CALL THROUGH THE HYDROPULPER. FROM 7PM-7AM, PLEASE PAGE [phone](COVR) Code Status: Full Code Barriers to Discharge: [...] complication and patient was admitted to the [facility] for over night monitoring to be [...] mg, oral, Daily (more content not included)... [facility] 01-27-2024 Note ---- Attestation signed [...] Progress Note - 01/27/2024 12:46 PM; Room: [address] [place] [address] Admission: 01/24/2024 10:46 AM; Length of stay: 3 days THE HOSPITALIST TEAM PREFERS TO USE [employer] FOR COMMUNICATION 7AM-7PM. IF I DO NOT RESPOND WITHIN 15 MINUTES, PLEASE PAGE ME/CALL THROUGH THE HYDROPULPER. FROM 7PM-7AM, PLEASE PAGE [phone](COVR) Code Status: Full Code Barriers to Discharge: [...] oral, Nightly ami (more content not included)... [facility] 01-27-2024 Note [facility] [...] ???F) Temporal 82 22 92 % -- 01/26/24 1940 -- -- -- -- -- 94 % [...] 86 QT Interval 316 QTC CALCULATION(BAZETT) 453 R-Kingstree 8 T Wave [place] 100 Impression Atrial fibrillation with rapid ventricular [...] function is normal. (more content not included)... [facility] 01-27-2024 Note ---- Attestation signed by Jay Benitez PT at 01/27/2024 11:18 AM This specification writer (PT) provided one-on-one supervision, direction of [...] ECHO showed pericardial effusion, pt went to laboratory phlebotomist for pericardiocentesis and currently has a pericardial drain. Discharge: home General Family/Caregiver Present: Yes (daughter) Subjective: RN approved PT eval and OOB activity. Pt supine in bed, agreeable to PT session. Upon completion, pt seated in chair, daughter present, call light given. PT Diagnosis: impaired functional mobility Patient Active Problem List Diagnosis Atrial fibrillation ([facility]/HCC) Hypertensive disorder Mitral valve disorder Obstructive sleep apnea syndrome Arrhythmia Bile duct obstruction Fall Gastroesophageal reflux disease without esophagitis Hyponatremia Mixed hyperlipidemia Pneumobilia Restless leg syndrome S/P total knee arthroplasty, right Stage 3a chronic kidney disease ([facility]) Subdural hematoma ([facility]) Type 2 diabetes mellitus without complication, without long-term current use of insulin ([facility]) Benign prostatic hyperplasia with urinary obstruction Calculus of ureter Diabetes mellitus ([facility]) Dry eyes Exposure keratitis Exudative age-related macular degeneration ([facility]) Family history of malignant neoplasm of skin Glaucoma Glycosuria Left corneal abrasion Proteinuria Paroxysmal atrial fibrillation ([facility]/HCC) Pericardial effusion Past Medical History: Diagnosis Date Abnormal ECG Arrhythmia Atrial fibrillation ([facility]/HCC) Heart valve disease Hypertension Sleep apnea Past [...] Level of Function Prior Function Level of [place]: Independent with ADLs and functional transfers, Independent [...] No upper extremity (more content not included)... [facility] 01-27-2024 Note Occupational Therapy Occupational [...] Patient Active Problem List Diagnosis Atrial fibrillation ([facility]/HCC) Hypertensive disorder Mitral valve disorder Obstructive sleep apnea syndrome Arrhythmia Bile duct obstruction Fall Gastroesophageal reflux disease without esophagitis Hyponatremia Mixed hyperlipidemia Pneumobilia Restless leg syndrome S/P total knee arthroplasty, right Stage 3a chronic kidney disease ([facility]) Subdural hematoma ([facility]) Type 2 diabetes mellitus without complication, without long-term current use of insulin ([facility]) Benign prostatic hyperplasia with urinary obstruction Calculus of ureter Diabetes mellitus ([facility]/HCC) Dry eyes Exposure keratitis Exudative age-related macular degeneration ([facility]/HCC) Family history of malignant neoplasm of skin Glaucoma Glycosuria Left corneal abrasion Proteinuria Paroxysmal atrial fibrillation ([facility]/HCC) Pericardial effusion Past Medical History: Diagnosis Date Abnormal ECG Arrhythmia Atrial fibrillation ([facility]/HCC) Heart valve disease Hypertension Sleep apnea Past [...] Level of Function Prior Function Level of [place]: Independent with ADLs and functional transfers, Independent [...] Eating meals?: None (Independent) Total Score OT [facility]: 21 Assessment/Plan OT Assessment OT Impairments: Decreased ADL status, Decreased endurance, Decreased functional mobility OT Assessment/DIRECTOR OF PROMOTIONS Summary: (needs skilled OT due to weakness [...] times per wee (more content not included)... [facility] 01-26-2024 Note ---- Attestation signed [...] Goncalves Age - 79 y.o. - 1945 [id number] Date of Admission - 01/24/2024 10:46 AM [...] Results from last 7 days Lab Units 01/26/24 0333 01/25/24 0438 WBC AUTO 10*3/uL 12.08* 13.57* HEMOGLOBIN g/dL 10.6* 11.0* HEMATOCRIT % 33.2* 34.5* PLATELETS AUTO 10*3/uL 123* 191 Coagulation: Results from last 7 days Lab Units 01/25/24 0456 01/24/24 1056 INR 1.24* -- PINR -- 1.1 Metabolic Panel: Results from last 7 days Lab Units 01/26/24 03301/25/24 0438 01/24/24 1556 POTASSIUM mmol/L 3.9 5.0 4.3 CHLORIDE [...] from last 7 days Lab Units 01/25/24 0438 TROPONIN I ng/mL 0.84* Anemia Labs: Lipid [...] in limited echocar (more content not included)... [facility] 01-26-2024 Note ---- Attestation signed [...] 95/60 -- -- 74 16 96 % 01/25/24 2132 -- -- -- -- -- 95 [...] Value Ventricular Rate 52 Atrial Rate 52 LA Interval 184 QRS DURATION 84 QT Interval 424 QTC CALCULATION(BAZETT) 394 P [place] 79 R-[place] 51 T Wave [place] 76 Impression Sinus bradycardia Nonspecific T wave abnormality Abnormal ECG (more content not included)... [facility] 01-26-2024 Note 01/26/24 1243 Admission Assessment Questions Verify insurance with patient Yes Do you understand medical disease or what brought you into the hospital? Yes Who is your current PCP? Dr Metz in [place] Can I schedule a follow up appointment for you at the time of discharge? Yes Do you understand why you are taking your current medications? Yes Are you taking your medications as prescribed? Yes Did patient provide teach back? Yes Would you like use our pharmacy [facility] to fill your new medications at the time of Discharge? No Does the patient have a showcase maker assigned to them through their insurance? No [...] to send link and activate MyChart? No [facility] 01-25-2024 Note ---- Attestation signed [...] -- 70 17 95 % -- 01/25/24 0634 100/61 36 ???C (96.8 ???F) Temporal -- -- -- 110 kg (242 lb 15.2 oz) 01/25/24524 -- -- -- 57 15 96 % -- 01/25/24524 92/60 -- -- -- -- -- -- 01/25/24519 -- -- -- 55 15 97 % -- 01/25/24519 93/62 -- -- -- -- -- -- 01/25/2415 -- -- -- 54 15 97 % -- 01/25/24 0515 89/58 -- -- -- -- -- -- 01/25/24 0510 -- -- -- 55 15 97 % -- 01/25/24 0510 74/58 -- -- -- -- -- -- 01/25/24 0505 -- -- -- 56 14 96 % -- 01/25/24 0505 72/53 -- -- -- -- -- -- 01/25/24 0500 -- -- -- 54 (!) 0 -- -- 01/25/24 0500 74/52 -- -- 54 15 95 % -- 01/25/24 0455 -- -- -- 53 14 96 % -- 01/25/24 0455 72/54 -- -- -- -- -- -- 01/25/24 0450 -- -- -- 54 14 97 % -- 01/25/24 0450 75/52 -- -- -- -- -- -- 01/25/24 0445 -- -- -- -- -- 97 % -- 01/25/24 0445 75/54 -- -- 54 14 -- -- 01/25/24 0440 -- -- -- 54 15 98 % -- 01/25/24 0439 75/55 -- -- -- -- -- -- 01/25/24434 -- -- -- -- -- 97 % -- 01/25/24 043 100/74 -- -- 55 14 -- -- 01/25/24429 -- -- -- 74 16 98 % -- 01/25/24 0425 -- -- -- 53 14 96 % -- 01/25/24419 -- -- -- 55 11 95 % -- 01/25/24 0418 70/53 -- -- -- -- -- -- 01/25/24 0 (more content not included)... [facility] 01-25-2024 Note Patient: Tito mejia Procedure Information Date/Time: 01/25/24 1800 Procedure: Pericardiocentesis Location: [facility]CE[facility] 3 / [facility] (Cath) Providers: Oliver Crane [...] Plan discussed with attending. Additional Equipment Requests [facility] 01-25-2024 Note CLINICAL INFORMATION : [...] this report. Electronically signed: Trenton Martinez. 6 [facility] 01-25-2024 Note Responded to rr [...] [facility] 01-24-2024 Note Pharmacy Dosing Serv ice - Vancomycin Initial Consult Note Pharmacy has been consulted for the dosing and evaluation of Drug: Vancomycin Indication: surgical prophylaxis Other Antimicrobial Regimens: None Labs and Renal Function Total body weight: 112 kg (248 lb) Errol body weight: 77.6 kg (171 lb 1.2 [...] is afebrile and hemodynamically stable. Presenting to [facility] for closure of left atrial appendage. Vancomycin [...] questions Thank you, Rose Tomas, PharmD, 01/24/24 [facility] 01-24-2024 Note Patient: Tito mejia Procedure Information Date/Time: 01/24/24 1300 Procedure: Left atrial appendage closure (transvenous) - ADRIENNE WILL CALL Location: [facility] / [facility] (Cath) Providers: Oliver Crane MD Clinical information reviewed: Allergies Meds Physical Exam Airway Mallampati: II TM distance: >3 FB Neck ROM: full Cardiovascular Rhythm: regular Rate: normal Dental Pulmonary Abdominal Anesthesia Plan ASA 3 other (Conscious sedation.) Anesthetic plan and risks discussed with patient. Use of blood products discussed with patient who consented to blood products. Additional Equipment Requests [facility] 01-11-2024 Note Amna Sousa CNP - patient's daughter- called with questions about her dad's upcoming LAAO procedure. She said you had given her instructions for him previously regarding coumadin, but she cannot find it. Can you please call her cell phone when you get a chance? [phone] If you need me to do anything, please let me know. Thanks! :) [facility] 10-31-2023 Evaluation note Encounter Date [...] are maintaining regular scheduled appts with their automatic pinsetter mechanic. Scheduled for LAAO procedure but postponed until spring. Fall precautions. Oct, Obstructive sleep apnea (ICD-10 - G47.33) Auto CPAP 10-15, Facial Mask This patient is aware of the benefits associated with CUBA: With continued use, the patient reduces the risk for DE, CVA, HTN, cardiac dysrhythmias and sudden cardiac [...] Exercise w/ goal of 10% weight loss [employer] Other 02-02-2024 NoteRight Eye Quality was good. Scan locations included subfoveal. Progression has been stable. Findings include abnormal foveal contour, disciform scar. Left Eye Quality was good. Scan locations included subfoveal. Progression has been stable. Findings include normal observations.[facility] [id number] History of Present illness Narrative* Jose R Dodd, - 10/28/2023 9:30 AM EST Images from [...] now given soon to be trip to [place] as well as side effects from last treatment in August. He was provided an Amsler grid to check daily and note any changes to this. He understands to get ahold of his retina specialist in [place] if there was a change. Will see [...] artificial tears were recommended. documented in this encounterNortheast Missouri Rural Health [id number] [facility] Note Chief Complaint: [...] PSYCH: appropriate mood, affect, and judgement. Transesophageal Echocardiogram-[facility] Name: TITO GONCALVES Study Date: 09/16/2023 09:38 AM B/P: 136 mmHg/70 mmHg HR: Date of : 1945 Location: [facility] Height: 72 in. Age: 78 year(s) Patient Room : [facility] Weight: 246 lb. Gender: Male Patient Status: OutPt BSA: 2.33 m2 Indication: Atrial Fibrillation, Pre LAAO closure Examination: JESSICA/Limited Doppler/CFI, Agitated Saline, 3D images Image Quality: Good Patient Consent: Informed, written consent was obtained for the procedure s p @ c 3 Exam Location: A JESSICA was performed in the Pipe Supervisor without complications s p @ c 3 [...] should problems arise Maggy Murphy MD, MPH, [facility], [facility], [facility] Interventional Cardiology Pager Email: [email or web address]12-12-2023 NoteUT Cardiology - [facility] Subjective Tito Goncalves is a 78 y.o. year old male patient being seen to discuss LAAO. He presented to [facility] ED in Jun 2023 for fall. He is anticoagulated with warfarin for afib. Back in December 2022 he had brain bleed s/p fall. Was treated at [facility]. He denies chest pain, SOB, and [...] In April 2019 he presented to the [facility] with atrial fibrillation with controlled ventricular [...] Take 1 tablet (more content not included)... [facility]06-21-2023 History of Present illness Narrative* Shannen Chahal - 03/16/2023 11:20 AM EDT Ortho Nurse - Established Patient Intake Room#: 5 Date: 03/16/2023 11:20 AM Patient: Tito Goncalves MR#: [id number] : 1945 Age: 78 y.o. 1yr R [...] allergy, and sulfa antibiotics. * Azul Rachel APRN-NURSE PLASTICS - 03/16/2023 11:20 AM EDT HPI: Patient [...] have reviewed the findings of the clinical technician support association and agree with their assessment. Ortho Nurse - Established Patient Intake Room#: 5 Date: 03/16/2023 11:20 AM Patient: Tito Goncalves MR#: [id number] : 1945 Age: 78 y.o. 1yr R [...] allergy, and sulfa antibiotics. documented in this [facility]04-29-2023 Evaluation note* Encounter Date Diagnosis Assessment Notes Treatment Notes Treatment Clinical Notes Dec, Subarachnoid hemorrhage (ICD-10 - I60.9) [employer] Other 04-12-2023 Evaluation note* Encounter Date Diagnosis [...] are maintaining regular scheduled appts with their automatic pinsetter mechanic. Dec, Obstructive sleep apnea (ICD-10 - G47.33) Auto CPAP 10-15, Facial Mask This patient is aware of the benefits associated with CUBA: With continued use, the patient reduces the risk for DE, CVA, HTN, cardiac dysrhythmias and sudden cardiac [...] and weight loss. Improved control of BS [employer] [facility] [employer] Other 02-15-2023 Evaluation note* Encounter Date Diagnosis Assessment Notes Treatment Notes Treatment Clinical Notes Oct, Cholecystitis (ICD-1 0 - K81.9) [employer] Other 02-14-2023 NotePatient Education Material [facility] FOLLOW UP CARE ? [...] physician?s office at: THANK YOU FOR CHOOSING [facility] FOR YOUR PROCEDURE! [phone] This information is not intended to replace advice given to you by your health care provider. Make sure you discuss any questions you have with your health care provider. ExitCare? Patient Information ?2016 [employer]. Custom Education added 09/2018[facility]02-14-2023 NoteNursing Discharge Summary Entered On: 11/09/2022 8:44 EST Performed On: 11/09/2022 8:43 EST by Sariah Schreiber RN, DC Information Discharged to : Home Mode of Discharge : Ambulatory Discharge Transportation : Private vehicle Reg VTE Warfarin at Discharge : No Sariah Schreiber RN R 11/09/2022 8:43 EST Education Instructions given to : Patient TeachBack Methodology : TeachBack, Explanation, Printed Material Barriers to Learning : None evident Educational concerns documented : N/A no barriers noted Sariah Schreiber RN 11/09/2022 8:43 EST Post-Hospital Education Adult Grid [...] Learner/s Present : Daughter Sariah Schreiber RN R - 11/09/2022 8:43 ESTSUniversity Hospitals [facility]01-09-2023 Evaluation note* Encounter Date Diagnosis Assessment Notes [...] use, the patient reduces the risk for DE, CVA, HTN, cardiac dysrhythmias and sudden cardiac [...] INR being monitored, no bleeding complications noted [employer] Other 10-13-2022 History of Present illness Narrative* Luis Wang LPN - 07/08/2022 11:20 AM EDT Ortho Nurse - Established Patient Intake Room#: 2 4 month Right TKA, some pain of 1-2 when weed eating, going great Date: 07/08/2022 11:51 AM Patient: Tito Goncalves MR#: [id number] : 1945 Age: 77 y.o. Referring Physician: [...] benign Hyperlipidemia OA (osteoarthritis) of knee bilat CBUA (obstructive sleep apnea) RA (rheumatoid arthritis) Past [...] He understands he is at the 50% stephanie of total recovery. We also discussed the [...] have reviewed the findings of the clinical technician support association and agree with their assessment. Ortho Nurse - Established Patient Intake Room#: 2 4 month Right TKA, some pain of 1-2 when weed eating, going great Date: 07/08/2022 11:51 AM Patient: Tito Goncalves MR#: [id number] : 1945 Age: 77 y.o. Referring Physician: [...] allergy, and sulfa antibiotics. documented in this [facility]08-08-2022 Hospital Discharge instructions Patient Education 05/03/2022 08:55:03 [...] urethra. Follow these instructions at home: Take [id number] and prescription medicines only as told by [...] 09/12/2006 Document Revised: 08/07/2019 Document Reviewed: 10/17/2017 j-Grab Patient Education 2020 [employer]. Follow Up Care 04/27/2021 11:05:10 With:GAGE UMANZOR, Mc Blackman, URL Address: [facility] [address], [place] [address] [phone] When: Unknown Comments:PRN [facility] 07-14-2022 History of Present illness Narrative* Shannen Tirso - 04/08/2022 10:00 AM EDT Ortho Nurse - Established Patient Intake Room#: 5 Date: 04/08/2022 9:50 AM Patient: Tito Goncalves MR#: [id number] : 1945 Age: 77 y.o. 3wk S/P [...] Medical History: Diagnosis Date Skin cancer 2013 Arrhythmia afid not since 2018 Diabetes mellitus [...] roller. All pertinent portions of the clinical technician support association documentation was reviewed and agree. EDYTA Ayala I have reviewed the findings of the clinical technician support association and agree with their assessment. EDYTA Ayala Ortho Nurse - Established Patient Intake Room#: 5 Date: 04/08/2022 9:50 AM Patient: Tito Goncalves MR#: [id number] : 1945 Age: 77 y.o. 3wk S/P [...] allergy, and sulfa antibiotics. [facility] Miscellaneous Notes* Nursing Notes - Kirsten Crawford [...] 03/16/2022 0309 Positioning/Transfer Devices: pillows Note: IVÁN Santiagoe, Foot pumps * Nursing Notes - Birgit [...] Information Source Information Source patient Contact Information Forming Machine Operator Name Gini Medrano RN Case Manager's Living [...] that he plans to return home with [facility]. The patient states that his daughter [...] assist with discharge plans. documented in this encounterUchealth Greeley HospitalThe Social Radio [facility] Medical [id number] Note* Nursing Notes - Kirsten Crawford RN - 03/16/2022 3:01 PM EDT Discharge instructions gone over with pt and pt's daughter at this time by Regina GAVIN. Both, verbalize understanding and deny any further questions. Hemovac drain removed at this time, tip intact upon removal, pt tolerated well. [facility]06[facility]20[facility] History of Present illness Narrative* Blanca Peck, SOPHIA - 03/16/2022 2:21 PM EDT 03/16/22 1421 [...] Transfer Skill: Sit To Stand, Rehab Eval [place] (Sit-Stand Transfers) (mod I) Physical Assist/Nonphysical Assist: Sit/Stand 1 person assist Weight-Bearing Restrictions: Sit/Stand weight-bearing as tolerated Assistive Device For Transfer: Sit/Stand armed chair Gait Skills, PT Eval Level of [place]: Gait (mod I) Weight-Bearing Restrictions: Gait weight-bearing as tolerated Assistive Device For Transfer: Gait 2 wheeled walker Gait Distance (600ft; patient demonstrates a good quality heel - toe pattern consistently throughtout treatment) Stair Negotiation [place] Level: Stair Negotiation supervision Physical Assist: Stair [...] 100mg 4.00 Total $ 20.60 Birgit Henriquez (Roving Frame Tender) reviewed medications with patient regarding indications, directions [...] Sit to Stand, Rehab Eval Level of [place]: Sit/Stand contact guard Physical Assist/Nonphysical Assist: Sit/Stand 1 person assist Weight-Bearing Restrictions: Sit/Stand weight-bearing as tolerated Assistive Device for Transfer: Sit/Stand wheeled walker;armed chair Transfer Skill: Stand to Sit, Rehab Eval Level of [place]: Stand/Sit contact guard Physical Assist/Nonphysical Assist: Stand/Sit [...] Prior Functional Impairment in Daily Activity CURRENT AM-[facility] Daily Activity Inpatient Short Form Putting on/Taking Off Lower Body Clothing 3 - A Little Assistance Bathing 3 - A Little Assistance Toileting 3 - A Little Assistance Putting on/Taking Off Upper Body Clothing 3 - A Little Assistance Grooming 3 - A Little Assistance Eating 4 - No Assistance CURRENT AM-[facility] Activity Raw Score 19 CURRENT [...] initiation of treatment Therapist Information License # [id number] In addition to above, ambulated with CGA using FWW. Reclined in chair at end of session with his call light and personal items placed in reach. Jennifer Saab OTR/L 03/16/2022 * Pato Gutierrez - 03/16/2022 11:46 AM EDT Pharmacy to Dose - Warfarin Note PATIENT: Tito Goncalves Room[facility]Bed[place] [facility] [place] Desired INR range: 2-3 Indication(s): Atrial Fibrillation Medications: No drug interactions were identified based on the patient's current therapy. Current Diet Status: Regular Recent bleeding/bleeding event: None noted Last labs: INR Date Value Ref Range Status 03/16/2022 1.37 (H) 0.85 - 1.10 Final Comment: 2.0-3.0 THERAPEUTIC RANGE 2.5-3.5 MECHANICAL VALVE RANGE Testing performed at [place], [place] [address] - ALBUMIN Date Value Ref Range Status 03/16/2022 3.3 (L) 3.5 - 5.0 G/dl Final - Plan: An order was placed for Coumadin 7.5 mg today x 1 based on INR = 1.37. A Pharmacist will continue to follow and make dose changes as clinically appropriate. Please contact pharmacy if there are any questions. Signed: Pato Gutierrez Pharmacist Phone: [phone] Date/Time: 03/16/2022 11:46 AM * Yashira Valencia [...] 3/5) LLE WFL Supine to Sit Mobility [place] Level: Supine->Sit stand-by assist Physical Assist: Supine->Sit (1 person) Bed Features/Set-up: Supine->Sit Head of bed elevated Skilled Rationale Verbal cues;Sequencing Sit to Stand Transfer [place] Level: Sit->Stand stand-by assist Physical Assist: Sit->Stand (1 person) Assistive Device: Sit->Stand 2 wheeled walker;gait belt Skilled Rationale Verbal cues;Hand placement;Sequencing Stand to Sit Transfer [place] Level: Stand->Sit stand-by assist Physical Assist: Stand->Sit (1 person) Assistive Device: Stand->Sit 2 wheeled walker;gait belt Skilled Rationale Verbal cues;Hand placement;Sequencing;Controlled descent for sitting Sitting Balance Static Sitting-Level of Assistance Independent Standing Balance Static Standing-Level of Assistance Stand-by assist Dynamic Standing-Level of Assistance Stand-by assist Standing-Balance Support 2 wheeled walker;Gait belt Skilled Rationale Verbal cues;Full extension to upright positioning/posture;Upright gaze/neck extension Gait Assessment [place] Level: Gait contact guard assist Physical Assist: [...] ARTHROPLASTY KNEE TOTAL Left 06/23/2015 CHOLECYSTECTOMY 2012 snf goals, to be achieved at discharge: 1. [...] (248 lb) 02/08/18 117.9 kg (260 lb) Errol body weight: 77.6 kg (171 lb 1.9 [...] plan. Patient plans to return home with [facility]. His daughter will be staying with [...] Warfarin and PT/INR management. Questions answered regarding [facility], patient denies any other questions or needs at this time. Referral information with orders for PT/INR faxed to [facility], spoke with staff who confirm start of care for tomorrow. Follow up appointment scheduled for 04/08/22 @ 10:00 am. * Grupo Morgan RPh,PharmD - 03/15/2022 6:24 PM EDT Pharmacy to Dose - Warfarin Note PATIENT: Tito Goncalves Room/Bed: [facility] [place] Desired INR range: 2-3 Indication(s): Atrial Fibrillation Last labs: INR Date Value Ref Range Status 03/15/2022 1.36 (H) 0.85 - 1.10 Final Comment: 2.0-3.0 THERAPEUTIC RANGE 2.5-3.5 MECHANICAL VALVE RANGE Testing performed at [place], [place] [address] - ALBUMIN Date Value Ref Range Status 02/18/2022 3.8 3.5 - 5.0 G/dl Final - Plan: An order was placed for 5 mg based on current Home Dosage. A Pharmacist will continue to follow and make dose changes as clinically appropriate. Please contact pharmacy if there are any questions. Signed: Grupo Morgan RPh,PharmD, Pharmacist Phone: [phone] Date/Time: 03/15/2022 6:24 PM * Samantha Miner [...] you require anything further documented in this [facility]06-21-2022 Note* Nursing Notes - Dian Roberts RN [...] to his level of pain. At this momentTito rates his pain level a 0 on [...] anxious to head home and settle in. [facility] Hospital Discharge instructions* Discharge Instructions* Kirsten Crawford [...] days or until therapeutic with results to [facility]. , Contact Office ([phone]) if: > Total Knee ROM < 90 [...] sent through Care Everywhere. * docusate (oral/rectal) (Burmese) * oxycodone (Burmese) documented in this encounterSelect [facility]06-21-2022 Note* Plan of Care - Regina Rios [...] discharge/transition of care. Outcome: Adequate for Discharge T [facility]06-[facility]-2022 Note* Nursing Notes - Kirsten Crawford RN - 03/16/2022 11:39 AM EDT Assessment unchanged from previous by this nurse unless otherwise noted in flowsheet [facility]06-21-2022 Hospital course Narrative* Domenico Ferguson MD - 03/16/2022 8:54 AM EDT Images from the original note were not included. Discharge Summary Name: Tito Goncalves Age: 77 y.o. Birthday: 1945 Admit Date: 03/15/2022 8:10 AM Discharge Date: 03/16/2022 Discharge Time: 03/16/2022 Discharge Unit: [facility] Inpatient Rehab unit Unit Length of Stay: LOS: [...] insulin restless leg. Kidney stones, admitted to [facility] for elective rig ht total knee arthroplasty [...] as: COUMADIN STOP taking these medications Glucosamine-Chondroitin 2368-1237 MG/30ML LIQD Follow-up: No follow-up provider specified. Upcoming Appointments (up to five)-Some appointments for Medical Center outpatient clinics or diagnostic testing locations are not displayed below Provider Department Dept Phone 04/08/2022 10:00 AM [facility] [phone] Total coordination of discharge care taking greater that 35 minutes [facility]* Plan of Care - Birgit Thakur [...] Intervention: Prevent/Minimize Sheer/Friction Injuries Flowsheets Taken 03/16/2022 032 Pressure Reduction Techniques: positioned off wounds pressure points protected weight shift assistance provided Pressure Reduction Devices: heel offloading device utilized Taken 03/16/2022 0309 Positioning/Transfer Devices: pillows Note: IVÁN Hose, Foot [facility] Nursing Notes - Birgit Thakur RN - 03/16/2022 3:09 AM EDT Assessment remains unchanged unless otherwise noted in flow sheet. Pt denies pain. Neuro/pulses unchanged. New bag of NS hung at this time. Vitals WDL. Pt denies any needs and call light is in reach. [facility]* Nursing Notes - Birgit Thakur RN - 03/15/2022 11:59 PM EDT Assessment remains unchanged unless otherwise noted in flow sheet. Pt denies any pain. Neuro/pulsesunchanged. NS infusing @ 100ml/hr and Ancef administered. Pt denies any needs and call light is in reach. [facility]* Nursing Notes - Birgit Thakur RN - 03/15/2022 8:06 PM EDT RT called at this time due to O2 change from 1.5 to 1L. Pt also has home CPAP/BIPAP device. RT [place]. [facility]* Nursing Notes - Araseli Ron RN - 03/15/2022 5:53 PM EDT Patient tolerating clear liquids at this time, diet advanced per orders. [facility] Consult note* Javier-Cameron Ferguson MD - 03/15/2022 4:10 PM EDT History and Physical Examination 03/15/22 4:10 PM Chief Complaint: Right total knee arthroplasty History of Present Illness: Patient is a 77 y.o. male presents for [facility] for elective right total knee arthroplastyDrMago Bedoya March 15 Internal medicine consult added for [...] mg by mouth daily. Historical Provider Glucosamine-Chondroitin 9642-8430 MG/30ML Liquid Take by mouth. Historical Provider [...] 81 mg by mouth daily. 03/04/2022 Glucosamine-Chondroitin 9629-7007 MG/30ML Liquid Take by mouth. Multiple Vitamins-Minerals [...] OT, ST and SW. Domenico Ferguson MD [facility] Consult note* Domenico Ferguson MD - 03/15/2022 4:10 PM EDT History and Physical Examination 03/15/22 4:10 PM Chief Complaint: Right total knee arthroplasty History of Present Illness: Patient is a 77 y.o. male presents for [facility] for elective right total knee arthroplastyDr. Foster [...] mg by mouth daily. Historical Provider Glucosamine-Chondroitin 0864-5534 MG/30ML Liquid Take by mouth. Historical Provider [...] 81 mg by mouth daily. 03/04/2022 Glucosamine-Chondroitin 8239-4677 MG/30ML Liquid Take by mouth. Multiple Vitamins-Minerals [...] SW. Domenico Ferguson MD documented in [facility] encounter[facility]* Nursing Notes - Araseli Ron RN - 03/15/2022 2:26 PM EDT Patient to OR at this time. [employer]06-20-2022 Note* Nursing Notes - Araseli Ron RN - 03/15/2022 11:57 AM EDT Patient assessment unchanged from previous. Patient ambulated to bathroom and voided. Patient denies any needs at this time. Call light in reach. [employer] [id number] Note* Nursing Notes - Gini Medrano RN - 02/18/2022 1:25 PM EDT 02/18/22 4844 Information Source Information Source patient Contact Information Forming Machine Operator Name Gini Medrano RN Case Manager's Living [...] that he plans to return home with [facility]. The patient states that his daughter [...] to follow and assist with discharge plans. [employer] [id number] History of Present illness Narrative* Luis Wang, BAND DIRECTOR - 2022 1:10 PM EDT Ortho Nurse - Established Patient Intake Room#: 1 Right knee pain of 9, no interventions, falls, or injuries, came in today with left knee pain, left knee revision 2016 Dr Bedoya Date: 2022 1:06 PM Patient: Tito Goncalves MR#: [id number] : 1945 Age: 77 y.o. Referring Physician: [...] a right total knee arthroplasty for optimal massotherapist management. PHYSICAL EXAM: This is an alert, [...] joint space, subchondral sclerosis, osteophyte formation, and [id number] contact with posterior loosebodies. He has a [...] of limb, and ultimately loss of life. snf expectations, risks and general implant surv ivorship were also discussed. Despite these risks, the patient would like to proceed with surgical planning. Today, we will initiate the pre-surgical process including nasal MRSA screening, scheduling an appointment for [facility] [employer] and the potential surgical date, and reviewing [...] KNEE TOTAL Left 06/23/2015 CHOLECYSTECTOMY 2012 Family History Problem Relation Age of Onset [...] Swelling Sulfa Antibiotics Swelling documented in this [facility]02-09-2022 Evaluation note* Encounter Date Diagnosis Assessment Notes Treatment Notes Treatment Clinical Notes Oct, Choledocholithiasis (ICD-10 - K80.50) Oct, Pancreatic cyst (ICD -10 - K86.2) [employer] Other Evaluation + Plan note No data available for this section [facility] evaluation note* Diagnosis Right knee pain, unspecified chronicity- Primary Pain in prosthetic joint, sequela documented in this encounter [facility] System[facility] note* Diagnosis Preop testing- Primary Preoperative examination, [...] Hyposmolality and/or hyponatremia documented in this encounter [facility] noteNo [employer] Other Evaluation note* Diagnosis Hx of total knee arthroplasty, right- Primary documented in this encounter [facility] SystemEvaluation note* Diagnosis Hx of total knee arthroplasty, right- Primary documented in this encounter [facility] C3 MetricsEvaluation noteN/ADept. of Dermatology Evaluation note* Diagnosis Hx of total knee arthroplasty, right- Primary documented in this encounter [facility] MetricsEvalusaint [facility] note* Diagnosis 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- Primary Age-related nuclear cataract of both eyes Dry eyes Unspecified tear film insufficiency [facility] Diagnosis Onset Date Resolution Status Atrial fibrillation acute Chronic kidney disease acute GERD (gastroesophageal reflux disease) acute Hemopericardium acute Hypercholesterolemia acute Hypertension acute CUBA (obstructive sleep apnea) acute [facility] Work Phone: Evaluation note* Diagnosis Onset Date Resolution Status Atrial fibrillation acute Chronic kidney disease acute Hemopericardium acute Hypertension acute Obesity acute CUBA (obstructive sleep apnea) acute Cellulitis of right upper extremity noneactive [facility] Work Phone: Evaluation note* Diagnosis Onset Date Resolution Status Atrial fibrillation acute Chronic kidney disease acute Hemopericardium acute Hypertension acute Obesity acute CUBA (obstructive sleep apnea) acute Cellulitis of right upper extremity noneactive Atrial fibrillation acute Chronic kidney disease acute Hypertension acute Obesity acute CUBA (obstructive sleep apnea) acute Type 2 diabetes mellitus with hyperglycemia acute [facility] Work Phone: [place] general Narrative - Reported* Type Description Date Medical History hyperlipidemia Medical History GERD Medical History HTN Medical History a.fib Medical History recurrent choledocholithiasis Surgical History LEFT KNEE Surgical History CHOLECYSTECTOMY 2012 Hospitalization History see above [employer] Other History general Narrative - Reported* Type [...] hand 1970 Surgical History ERCP stint removal 2013 Surgical History Cardio-version (A-Fib) 2012 Surgical History Cardio-version (A-Fib) 2013 Surgical History ERCP (stone removal) 2014 Surgical History ERCP w/ stone removal 10/2022 Hospitalization History see above [employer] Other History general Narrative - Reported* Type [...] stone removal 10/2022 Hospitalization History see above [employer] Other [place] general Narrative - Reported* Type Description Date [...] History Colonoscopy 2020 Hospitalization History see above [employer] Other Hospital Discharge instructions Additional Instructions 1. Sleep on 2 pillows 2. You may shower late tomorrow afternoon, keep wounds dry and clean 3. Small amount of Vaseline to sutures twice daily 4. Tylenol or Motrin for discomfort 5. See Dr. Freitas in 1 [facility] Work Phone: Progress note No data available for this section [facility] reason for referral (narrative)* Name Reason for referral NA NA Dept. of Dermatology Reason for visit Narrative* Auth/Cert Specialty Diagnoses / Procedures Referred By Contольга t Referred To Contact Diagnoses Osteoarthritis of right knee, unspecified osteoarthritis type Osteoarthritis of right knee, unspecified osteoarthritis type [M17.11] Procedures LA TOTAL KNEE ARTHROPLASTY ARTHROPLASTY KNEE TOTAL Pastor Bedoya MD [address] [place] [address] Referral ID Status Reason Start Date Expiration Date Visits Re quested Visits Authorized [id number] 02/01/2022 1 1 [employer] Summary Purpose Family History No Family History Records Found Relationship Condition Age at Onset Recorded Date/T rolando Not Specified Cerebral hemorrhage Unknown Malignant neoplasm of breast Unknown father Heart disease Unknown father Diabetes mellitus Unknown Heart disease Unknown Not Specified Malignant neoplasm Unknown Relationship Condition Age at Onset Recorded Date/T rolando Not Specified Cerebral hemorrhage Unknown Malignant neoplasm of breast Unknown Malignant neoplasm Unknown father Heart disease Unknown Diabetes mellitus Unknown Advance Directives No Advanced Directives Records [...] joint Procedures XR KNEE LEFT 3 VIEWS Virginie Azul, 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-NURSE PLASTICS [address] [place] [address] Specialty Diagnoses / Procedures Referred By Contac t Referred To Contact Diagnoses Pain in prosthetic joint, sequela Procedures XR KNEE LEFT 3 VIEWS Pastor Bedoya MD [address] [place] [address] Referral ID Status Reason Start Date Expiration Date V isits Requested Visits Authorized [id number] New Request 2022 02/15/2023 1 1 Specialty Diagnoses / Procedures Referred By Contac t Referred To Contact Diagnoses Right knee pain, unspecified chronicity Procedures XR KNEE RIGHT 4+ VIEWS Pastor Bedoya MD [address] [place] [phone] Referral ID Status Reason Start Date Expiration Date V isits Requested Visits Authorized [id number] New Request 01/15/2022 02/09/2023 1 1 Specialty Diagnoses / Procedures Referred By Contac t Referred To Contact Social Work Diagnoses Restless leg syndrome Stage 3a chronic kidney disease S/P total knee arthroplasty, right Paroxysmal atrial fibrillation Type 2 diabetes mellitus without complication, without long-term current use of insulin Domenico Ferguson MD [address] [place] [phone] Referral ID Status Reason Start Date Expiration Date V isits Requested Visits Authorized [id number] New Request 03/16/2022 04/10/2023 1 1 Specialty Diagnoses / Procedures Referred By Contac t Referred To Contact Diagnoses Acute postoperative pain of right knee Samantha Miner [address] [place] [id number] Referral ID Status Reason Start Date Expiration Date V isits Requested Visits Authorized [id number] New Request 03/15/2022 04/09/2023 1 1 Scheduling Instructions . Specialty Diagnoses / Procedures Referred By Contac t Referred To Contact Physical Therapy Diagnoses Hx of total knee arthroplasty, right Azul Rachel APRN-CNP [address] [place] [address] [facility] Physical [facility] [address] [place] [address] Referral ID Status Reason Start Date Expiration Date V isits Requested Visits Authorized [id number] New Request 04/08/2022 05/03/2023 1 1 Specialty Diagnoses / Procedures Referred By Contac t Referred To Contact Diagnoses Hx of total knee arthroplasty, right Procedures XR KNEE RIGHT 3 VIEWS Azul Rachel APRN-TOBI [address] [place] [address] Referral ID Status Reason Start Date Expiration Date V isits Requested Visits Authorized [id number] New Request 03/31/2022 04/25/2023 1 1 Specialty Diagnoses / Procedures Referred By Contac t Referred To Contact Diagnoses Hx of total knee arthroplasty, right Procedures XR KNEE RIGHT 3 VIEWS Pastor Bedoya MD [address] [place] [address] Referral ID Status Reason Start Date Expiration Date V isits Requested Visits Authorized [id number] New Request 07/02/2022 07/27/2023 1 1 Specialty Diagnoses / Procedures Referred By Contac t Referred To Contact Diagnoses Hx of total knee arthroplasty, right Procedures XR BONE LENGTH STUDY Pastor Bedoya MD [address] [place] [address] Referral ID Status Reason Start Date Expiration Date V isits Requested Visits Authorized [id number] New Request 07/02/2022 07/27/2023 1 1 Referral ID Status Reason Start Date Expiration Date V isits Requested Visits Authorized [id number] New Request 03/15/2023 04/08/2024 1 1 History [...] have reviewed the findings of the clinical technician support association and agree with their assessment. Ortho Nurse Established Patient Intake Room#: 5 Date: 03/20/2020 11:10 AM Patient: Tito Goncalves MR#: [id number] : 1945 Age: 75 y.o. 3 yr [...] 03/20/2020 11:10 AM Patient: Tito Goncalves MR#: [id number] : 1945 Age: 75 y.o. 3 yr [...] Hemopericardium Hypercholesterolemia Hypertension CUBA (obstructive sleep apnea) Chief Complaint Amb Documentation Amb Documentation hospital follow up scalp wound Reason for Visit Atrial fibrillation Chronic kidney disease Hemopericardium Hypertension Obesity CUBA (obstructive sleep apnea) Cellulitis of right upper extremity Chief Complaint Amb Documentation Amb Documentation hospital follow up scalp wound scalp wound Reason for Visit Atrial fibrillation Chronic kidney disease Hemopericardium Hypertension Obesity CUBA (obstructive sleep apnea) Cellulitis of right upper extremity Chief Complaint Amb Documentation Amb Documentation hospital follow up scalp wound scalp wound 4 month follow up Reason for Visit Atrial fibrillation Chronic kidney disease Hemopericardium Hypertension Obesity CUBA (obstructive sleep apnea) Cellulitis of right upper extremity Atrial fibrillation Chronic kidney disease Hypertension Obesity CUBA (obstructive sleep apnea) Type 2 diabetes mellitus with hyperglycemia Additional Source Comments (unrecognized sect ion and content) No Status Records FoundNo Status Records FoundNo Status Records FoundNo Status Records FoundNo Status Records FoundNo Status Records FoundNo Status Records FoundNo Status Records FoundNo Status Records FoundNo Status Records FoundNo Status Records FoundNo Status Records Found INFORMATION SOURCE (unrecogn ized section and content) DATE CREATED AUTHOR 03/21/2018 [facility] DATE CREATED AUTHOR AUTHOR'S ORGANIZ ATION 06/15/2019 [facility] DATE CREATED AUTHOR AUTHOR'S ORGANIZ ATION [facility]/2022 [facility] DATE CREATED AUTHOR AUTHOR'S ORGANIZ ATION 05/04/2022 [facility] DATE CREATED AUTHOR AUTHOR'S ORGANIZ ATION 10/04/2022 [facility] DATE CREATED AUTHOR AUTHOR'S ORGANIZ ATION 02/02/2023 [facility] DATE CREATED AUTHOR AUTHOR'S ORGANIZ ATION 03/05/2023 [facility] DATE CREATED AUTHOR AUTHOR'S ORGANIZ ATION 03/20/2023 [facility] DATE CREATED AUTHOR AUTHOR'S ORGANIZ ATION 07/12/2023 [facility] DATE CREATED AUTHOR AUTHOR'S ORGANIZ ATION 03/06/2024 [facility] DATE CREATED AUTHOR AUTHOR'S ORGANIZ ATION 03/10/2024 [facility] DATE CREATED AUTHOR AUTHOR'S ORGANIZ ATION 03/23/2024 [facility] Reason for Visit (unrecogniz ed section and content) Reason Comments Follow-up Status Reason Specialty Diagnoses / Procedures Referred By Contact Referred To Contact New Request Diagnoses History of revision of total replacement of left knee joint Procedures XR KNEE LEFT 3 VIEWS Azul Rachel, 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-NURSE PLASTICS [address] [place] [phone] Reason Comments Pain Specialty Diagnoses / Procedures Referred By Contac t Referred To Contact Diagnoses Pain in prosthetic joint, sequela Procedures XR KNEE LEFT 3 VIEWS Pastor Bedoya MD [address] [place] [address] Referral ID Status Reason Start Date Expiration Date V isits Requested Visits Authorized [id number] New Request 2022 02/15/2023 1 1 Specialty Diagnoses / Procedures Referred By Contac t Referred To Contact Diagnoses Right knee pain, unspecified chronicity Procedures XR KNEE RIGHT 4+ VIEWS Pastor Bedoya MD [address] [place] [address] Referral ID Status Reason Start Date Expiration Date V isits Requested Visits Authorized [id number] New Request 01/15/2022 02/09/2023 1 1 Specialty Diagnoses / Procedures Referred By Contac t Referred To Contact Diagnoses Hx of total knee arthroplasty, right Procedures XR KNEE RIGHT 3 VIEWS Azul Rachel, 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-NURSE P[employer] [address] [place] [address] Referral ID Status Reason Start Date Expiration Date V isits Requested Visits Authorized [id number] New Request 03/31/2022 04/25/2023 1 1 Reason Comments Post Op Visit Specialty Diagnoses / Procedures Referred By Contac t Referred To Contact Diagnoses Hx of total knee arthroplasty, right Procedures XR KNEE RIGHT 3 VIEWS Pastor Bedoya MD [address] [place] [address] Referral ID Status Reason Start Date Expiration Date V isits Requested Visits Authorized [id number] New Request 07/02/2022 07/27/2023 1 1 Referral ID Status Reason Start Date Expiration Date V isits Requested Visits Authorized [id number] New Request 03/15/2023 04/08/2024 1 1 Reason Comments Retinal Injection Care Teams (unrecognized sec tion and content) Sampler And Test Preparer Relationship Specialty Start Date End Date Augustine Metz, DO [address] [facility] [place] [address] PCP - General Internal Medicine 01/24/17 Sampler And Test Preparer Relationship Specialty Start Date End Date Augustine Metz DO [address] [place] [address] PCP - General Internal Medicine 01/24/17 Sampler And Test Preparer Relationship Specialty Start Date End Date Augustine Metz, DO [address] [place] [address] PCP - General Internal Medicine 01/24/17 Sampler And Test Preparer Relationship Specialty Start Date End Date Augustine Metz DO [address] [facility] [place] [address] PCP - General Internal Medicine 01/24/17 Sampler And Test Preparer Relationship Specialty Start Date End Date Augustine Metz DO [address] [facility] [place] [address] PCP - General Internal Medicine 01/24/17 Sampler And Test Preparer Relationship Specialty Start Date End Date Augustine Metz DO [address] [facility] [place] [address] PCP - General Internal Medicine 01/24/17 Sampler And Test Preparer Relationship Specialty Start Date End Date Augustine Metz DO [address] [place] [address] PCP - General Internal Medicine 01/24/17 Sampler And Test Preparer Relationship Specialty Start Date End Date Augustine Metz DO [address] [place] [address] PCP - General Internal Medicine 01/24/17 Sampler And Test Preparer Relationship Specialty Start Date End Date Augustine Metz DO [address] [place] [address] PCP - General Internal Medicine 01/24/17 Sampler And Test Preparer Relationship Specialty Start Date End Date Augustine Metz MD [address] [place] [phone] PCP - General Internal Medicine 06/02/23 Sampler And Test Preparer Relationship Specialty Start Date End Date Augustine Metz MD [address] [place] [phone] PCP - General Internal Medicine 06/02/23 Team [...] January 31, 2024 End: January 31, 2024 Team Status: Inactive Member Role Status Dates Augustine Metz DO Primary Care Provider Active Start: February 16, 2024 End: February 16, 2024 Augustine Freitas DO Attending Provider Active S tart: February 16, 2024 End: February 16, 2024 Team Status: Inactive Member Role Status Dates Augustine Metz DO Primary Care Provider Active Start: February 24, 2024 End: February 24, 2024 Augustine Freitas DO Attending Provider Active S tart: February 24, 2024 End: February 24, 2024 Team Status: Inactive Member Role Status Dates Augustine Metz DO Primary Care Provide r, Attending Provider Active Start: February 27, 2024 End: February 27, 2024 Scheduled Active and Recently Administ ered [...] Birgit Thakur RN)0811 (Given - Provider: Kirsten Crawford RN)1449 (Given - Provider: Kirsten Crawford RN) amLODIPine (NORVASC) tablet 2.5 mg (CANCELED) [...] mmHg 823 (Given - Provid er: Kirsten Crawford RN) atorvastatin (LIPITOR) tablet 10 mg 10 [...] HR 78) 0810 (Given - Provider: Kirsten Crawford RN) ceFAZolin (ANCEF) 2 g in dextrose 100 mL premix IVPB (COMPLETED) 2 g, Intravenous, Administer over 30 Minutes, EVERY 8 HOURS NON-STANDARD, 2 doses, First dose on Tue03/15/22 at 2300, Last dose on Tue03/16/22 at 0700, Post-op/Post-Proc 2357 ($$New Bag$$ - Provider: Birgit Thakur, ROMAINE) 0309 (Stopped - Provider: Birgit Thakur, ROMAINE)0814 ($$New Bag$$ - Provider: Kirsten Crawford, RN)0845 (Stopped - Provider: Regina Rios, ROMAINE) clonazePAM (KLONOPIN) tablet 0.5 mg 0.5 mg, [...] after anesthesia 2104 (Given - Provider: Birgit Thakur, ROMAINE) dexAMETHasone (DECADRON) injection 10 mg (COMPLETED) 10 mg, Intravenous, ONCE, 1 dose, On Tue03/16/22 at 1400, 24 hours post op, Post-op/Post-Proc 1450 (Given - Provid er: Kirsten Crawford, RN) docusate (COLACE) capsule 100 mg 100 [...] to the hypoglycemia management protocol on Ell[employer]: M-ZK-Plaulvswzbez Management Protocol insulin regular (HumuLIN R;NovoLIN R) [...] - Provider: Araseli Ron RN - Reason: NPO)175 (Not Given - Provider: Araseli Ron RN - Reason: Patient/family refused)2108 (Given - Provider: Birgit Thakur, ROMAINE - Comment: BS 206 2u givenpeanut butter crackers at bedside) 0813 (Given - Provider: Kirsten Crawford, ROMAINE)1127 (Given - Provider: Kirsten Crawford, RN)1700 (Canceled [...] Until Discontinued, Indications: Inpt Stress Ulcer Prophylaxis 1752 (Given - Provider: Araseli Ron RN) propafenone (RYTHMOL) tablet 150 mg 150 mg, Oral, EVERY 8 HOURS, First dose (after last modification) on Tue03/15/22 at 1800, Until Discontinued, Administer every 8 hours according with patient home schedule if possible 175 (Given - Provider: Araseli Ron RN) 030 (Given - Provider: Birgit Thakur, ROMAINE)1448 (Given - Provider: Kirsten Crawford RN - [...] use, Intra-op/Intra-Proc 1442 (Given - Provider: Amari Quesada, RN) tranexamic acid (LYSTEDA) tablet 1,950 mg (COMPLETED) 1,950 mg, Oral, ONCE, 1 dose, On Tue03/15/22 at 0900, Administer 2 hours preop, Pre-op/Pre-Proc 0932 (Given - Provider: Araseli Ron, ROMAINE) warfarin (COUMADIN) tablet 5 mg (COMPLETED) 5 mg, Oral, ONCE, 1 dose, On Tue03/15/22 at 1830, 1835 (Given - Provider: Kirsten Crawford RN) Continuous Medication Order 03/14/2022 03/15/2022 03/16/2022 [...] Araseli Ron RN)1450 ($$New Bag$$ - Provider: JESUS Zayas)1606 (Paused - Provider: Chino Puga CRNA - [...] RN)0715 (Rate/Dose Verify - Provider: Regina Rios, ROMAINE)1146 (Stopped - Provider: Regina Rios, RN) PRN Medication Order 03/14/2022 03/15/2022 03/16/2022 bisacodyl (DULCOLAX) suppository 10 mg 10 mg, Rectal, DAILY NEEDED, Starting on Tue03/15/22 at 1750, Until Tue03/16/22 at 1703, constipation, Post-op/Post-Proc ceFAZolin (ANCEF) 2 g in dextrose 100 mL premix IVPB (COMPLETED) 2 g, Intravenous, Administer over 30 Minutes, CREEL CLEANER TO PROCEDURE, 1 dose, Starting on Tue03/15/22 at 0849, Until Discontinued, Other, Pre-operative antibiotic, For 15 Minutes, Pre-op/Pre-Proc 1440 (Given - Provider: JESUS Suero) dextrose 10% IV solution 250 mL(Linked Group [...] less than 60 mg/ml. If unresponsive call VENEER SUPERVISOR HYDROmorphone (DILAUDID) injection 0.5 mg 0.5 mg, [...] Dominik Bedoya MD - Comment: given to field) sodium phosphate w/sodium biphosphate (FLEETS) enema 1 enema 1 enema, Rectal, DAILY NEEDED, Starting on Tue03/15/22 at 1750, Until Tue03/16/22 at 1703, Refractory Constipation, use per package instructions, Post-op/Post-Proc vancomycin (VANCOCIN) injection NEEDED, Starting on Tue03/15/22 at 1443, Until Tue03/16/22 at 1703, Intra-op/Intra-Proc 1443 (Given - Provider: Dominik Bedoya MD - Comment: given to field) zolpidem (AMBIEN) tablet 5 mg 5 mg, [...] to the hypoglycemia management protocol on [employer]: [id number] Management Protocol
And dextrose 10% IV solution [...] less than 60 mg/ml. If unresponsive call VENEER SUPERVISOR
And NOTIFY PHYSICIAN, Blood Glucose LESS THAN 70 mg/dl or greater than 400 mg/dl (CANCELED) Routine, CONTINUOUS, Starting on Tue03/15/22 at 1255, Until Specified
Who to Notify: [employer] MEMBER/Physician
For all Blood Glucose LESS THAN 70 mg/dl, or greater than 400 mg/dl notify [employer] MEMBER/Physician Goals (unrecognized section and content) Goals may [...] BE BASED ON THE PRIMARY CLINICAL RECORDS. [employer] provides no warranty or guarantee of the accuracy or completeness of information in this document.
--- NOTE | 2024-04-01 15:38 | ECG_ITS ---
[facility] Test Date: 2024-04-01 Pat Name: EL TRUONG Department: Room: - Gender: Male Sanitation Lead: : 1945 Requested By: CHRIS METZ Order Number: [id number] Reading MD: CHRIS METZ Measurements Intervals Anabel Rate: 64 P: 63 IN: 204 QRS: 35 QRSD: 88 T: 75 QT: 396 QTc: 405 Interpretive Statements 1100 Sinus rhythm 4068 Nonspecific Twave abnormality 9130 borderline ECG Compared to ECG 11/01/2021 02:33:03 Sinus tachycardia no longer present Electronically Signed On 04-02-2024 6:58:40 EDT by CHRIS METZ
--- NOTE | 2024-04-01 15:47 | XR_ITS ---
[address] [address] Patient Name: EL TRUONG MRN: [id number] date: 1945 Sex: M Assigned Patient Location: ER Current Patient Location: ER Accession/Order Number: [id number] Exam Date: 04/01/2024 16:30 Report Date: 04/01/2024 17:16 At the request of: OSMAN CASSIDY Procedure: XR chest 1V EXAM: XR chest 1V HISTORY: Chest pain COMPARISON: Chest x-ray 11/01/2021, 11/08/2019 TECHNIQUE: AP portable upright chest x-ray 04/01/2024. FINDINGS: Lungs are clear without infiltrate or edema. Cardiac silhouette enlarged accentuated by magnification unchanged. Stable mediastinum. No pleural effusion or pneumothorax. XR/XR chest 1V IMPRESSION: Stable chest x-ray, no acute findings. Clear lungs. Electronically authenticated by: SHRUTHI MALDONADO Date: 04/01/2024 17:16
--- NOTE | 2024-04-01 15:54 | ED.CHESTPAI1 ---
HPI - Chest Pain General Chief Complaint: Chest Pain Stated Complaint: CHEST PAIN Time Seen by Provider: 04/01/24 15:46 Source: patient Mode of arrival: walk-in Limitations: no limitations History of Present Illness HPI narrative: Patient is a 79-year-old male who presents to the emergency department For the evaluation of chest pain. Patient believes that the pain began yesterday but got much worse this morning/early afternoon after eating lunch. He denies any burning sensation. He states the pain is across the center of his chest. It is worse with deep breathing. He does have tenderness with palpation of the chest. He does not smoke. He has a history of hypertension, high cholesterol, diabetes. He denies any history of heart attack, stroke, stents. He has a watchman in place for intermittent dizziness that has been ongoing since December. He has not had a syncopal episode. He has chronic lower extremity edema that typically resolves overnight and then returns during the day. This is not worse or different. He has not had any jaw pain, extremity pain, abdominal pain, vomiting. Related Data Home Medications ?Medication ?Instructions ?Recorded ?Confirmed amlodipine 10 mg tablet 5 mg PO .nightly 07/05/23 04/01/24 aspirin 81 mg tablet,delayed 81 mg PO DAILY 07/05/23 04/01/24 release (Adult Aspirin Regimen) atorvastatin 10 mg tablet (Lipitor) 10 mg PO DAILY 07/05/23 04/01/24 benazepril 20 mg tablet 20 mg PO DAILY 07/05/23 04/01/24 carvedilol 6.25 mg tablet 12.5 mg PO BID 07/05/23 04/01/24 clonazepam 1 mg tablet 1 mg PO .nightly 07/05/23 04/01/24 omeprazole 20 mg capsule,delayed 20 mg PO DAILY 07/05/23 04/01/24 release trazodone 50 mg tablet 50 mg PO .nightly 07/05/23 04/01/24 amiodarone 200 mg tablet 200 mg PO DAILY 04/01/24 04/01/24 clopidogrel 75 mg tablet 75 mg PO DAILY 04/01/24 04/01/24 Allergies Allergy/AdvReac Type Severity Reaction Status Date / Time iodine Allergy Hives Verified 04/01/24 15:30 Penicillins Allergy Unknown Verified 04/01/24 15:30 Sulfa (Sulfonamide Allergy Unknown Verified 04/01/24 15:30 Antibiotics) Review of Systems ROS Constitutional Denies: fever or chills Ears, nose, mouth, and throat Denies: throat pain or nasal congestion Cardiovascular Reports: chest pain; Denies: palpitations Respiratory Reports: shortness of breath; Denies: cough Gastrointestinal Denies: abdominal pain, nausea or vomiting Musculoskeletal Denies: back pain Integumentary/Breast Denies: rash Hematologic/Lymphatic Denies: easy bruising or easy bleeding PFSH PFS Medical History (Updated 04/01/24 @ 17:41 by ASPEN Duran) Atrial fibrillation ?I48.91 - Unspecified atrial fibrillation (ICD-10) Presence of Watchman left atrial appendage closure device ?Z95.818 - Presence of other cardiac implants and grafts (ICD-10) Social History Smoking status: Never smoker Exam Narrative Exam Narrative: Gen.: Awake, alert, in no distress Head: Normocephalic, atraumatic ENT: Moist mucous membranes Respiratory: No respiratory distress, lungs clear bilaterally Cardio: Regular rate and rhythm Gastrointestinal: Abdomen is soft, nondistended and nontender to palpation Extremities: Moves extremities equally, mild nonpitting edema bilaterally Psych: Normal mood and affect Neuro: No focal neuro deficit Skin: Warm, dry, intact Constitutional Vital Signs, click to edit/add: Last Vital Signs Temp 98.3 F 04/01/24 15:23 Pulse 64 04/01/24 16:10 Resp 11 L 04/01/24 16:10 BP 153/73 H 04/01/24 16:00 Pulse Ox 97 04/01/24 16:10 O2 Del Method Room Air 04/01/24 15:23 Course Vital Signs Vital signs: Vital Signs Temperature 98.3 F 04/01/24 15:23 Pulse Rate 64 04/01/24 15:23 Respiratory Rate 16 04/01/24 15:23 Blood Pressure 174/85 H 04/01/24 15:23 Pulse Oximetry 96 04/01/24 15:23 Oxygen Delivery Method Room Air 04/01/24 15:23 Temperature 98.3 F 04/01/24 15:23 Pulse Rate 64 04/01/24 16:10 Respiratory Rate 11 L 04/01/24 16:10 Blood Pressure 153/73 H 04/01/24 16:00 Pulse Oximetry 97 04/01/24 16:10 Oxygen Delivery Method Room Air 04/01/24 15:23 MDM - Chest Pain MDM Narrative Medical decision making narrative: Patient treated with aspirin, pain is well-controlled in the ER, no EKG changes. Laboratory studies reviewed and noted within normal limits. Repeat Trope is pending and the patient will be admitted to stepdown unit for observation for ACS rule out. He is stable at time of admission to the hospitalist service. SUPERVISED APC VISIT, PHYSICIAN ATTESTATION: Based on the medical record the care appears appropriate. ? Medical Records Data Attestation: I reviewed the patient's medical records. Lab Data Attestation: I reviewed the patient's lab results. Labs: Lab Results 04/01/24 Range/Units 16:00 WBC 6.2 (4.0-11.0) 10^3/uL RBC 4.04 L (4.70-6.10) 10^6/uL Hgb 11.1 L (14.0-18.0) g/dL Hct 35.6 L (42.0-54.0) % MCV 88.1 (80.0-94.0) fL MCH 27.5 (25.9-34.0) pg MCHC 31.2 (29.9-35.2) g/dL RDW 13.7 (11.0-15.0) % Plt Count 152 (150-450) 10^3/uL MPV 11.8 (9.5-13.5) fL Neut % (Auto) 67.4 (43.0-75.0) % Lymph % (Auto) 20.2 L (20.5-60.0) % Wood % (Auto) 10.2 (1.7-12.0) % Eos % (Auto) 1.8 (0.9-7.0) % Baso % (Auto) 0.2 (0.2-2.0) % Neut # (Auto) 4.2 (1.4-6.5) 10^3/uL Lymph # (Auto) 1.3 (1.2-3.8) 10^3/uL Wood # (Auto) 0.6 (0.3-0.8) 10^3/uL Eos # (Auto) 0.1 (0.0-0.7) 10^3/uL Baso # (Auto) 0.0 (0.0-0.1) 10^3/uL Abs Immat Gran (auto) 0.01 (0.00-0.03) 10^3/uL Imm/Tot Granulo (auto) 0.2 (0.0-0.5) % PT 10.4 (9.0-11.6) sec INR 0.98 Sodium 138 (136-145) mmol/L Potassium 4.2 (3.5-5.1) mmol/L Chloride 102 (98-107) mmol/L Carbon Dioxide 26.5 (21.0-32.0) mmol/L Anion Gap 13.7 BUN 18.0 (7.0-18.0) mg/dL Creatinine 1.56 H (0.70-1.30) mg/dL Est GFR ( Amer) 52 L (>=60) Est GFR (Non-Af Amer) 43 L (>=60) BUN/Creatinine Ratio 11.5 Glucose 234 H (74-106) mg/dL Calcium 8.5 (8.5-10.1) mg/dL Total Bilirubin 0.4 (0.2-1.0) mg/dL AST 12 L (15-37) U/L ALT 19 (16-63) U/L Alkaline Phosphatase 91 (46-116) U/L Troponin I High Sens 5.8 (4.0-76.1) pg/mL NT-Pro-B Natriuret Pep 284.0 (<=1800.0) pg/mL Total Protein 6.6 (6.4-8.2) g/dL Albumin 3.3 L (3.4-5.0) g/dL Globulin 3.3 g/dL Albumin/Globulin Ratio 1.0 Imaging Data Chest x-ray: Attestation: I have reviewed the pertinent imaging results. Radiologist's impression: ITS Impressions Chest X-Ray 04/01/24 15:47 IMPRESSION: Stable chest x-ray, no acute findings. Clear lungs. Electronically authenticated by: SHRUTHI MALDONADO Date: 04/01/2024 17:16 ECG Data Attestation: I personally reviewed and interpreted this ECG as follows: (Normal sinus rhythm at a rate of 64, no acute ST elevation or ectopy. EKG reviewed by attending physician) Heart Score History: Slightly/Non-Suspicious ECG: NS Repolarization Age: >65 years Risk Factors: >3 Risk Factors/ HX of CAD:2 Troponin: <Normal Limit Total Heart Score Recommendations & Risks:: 5 Discharge Plan Discharge Chief Complaint: Chest Pain Patient Disposition: Admitted as Observation Time of Disposition Decision: 17:40 Prescriptions / Home Meds: No Action amlodipine 10 mg tablet 5 mg PO .nightly benazepril 20 mg tablet 20 mg PO DAILY atorvastatin [Lipitor] 10 mg tablet 10 mg PO DAILY omeprazole 20 mg capsule,delayed release(DR/EC) 20 mg PO DAILY aspirin [Adult Aspirin Regimen] 81 mg tablet,delayed release (DR/EC) 81 mg PO DAILY carvedilol 6.25 mg tablet 12.5 mg PO BID trazodone 50 mg tablet 50 mg PO .nightly clonazepam 1 mg tablet 1 mg PO .nightly amiodarone 200 mg tablet 200 mg PO DAILY clopidogrel 75 mg tablet 75 mg PO DAILY Print Language: Upper Sorbian Referrals: Augustine Frost DO [Primary Care Provider] - 1 week
[2024-04-01] MEDS: ASPIRIN 81 MG TAB.CHEW 162 MG PO (16:04)
[2024-04-01 16:18] LABS: Basophils Percent Auto 0.2 % (0.2-2.0); Eosinophils Absolute Auto 0.1 10^3/uL (0.0-0.7); Eosinophils Percent Auto 1.8 % (0.9-7.0); Hematocrit 35.6 % (42.0-54.0); Hemoglobin 11.1 g/dL (14.0-18.0); Immature Granulocytes Abs Auto 0.01 10^3/uL (0.00-0.03); Immature Granulocytes Pct Auto 0.2 % (0.0-0.5); Lymphocytes Absolute Auto 1.3 10^3/uL (1.2-3.8); Lymphocytes Percent Auto 20.2 % (20.5-60.0); Mean Corpuscular HGB Conc 31.2 g/dL (29.9-35.2); Mean Corpuscular Hemoglobin 27.5 pg (25.9-34.0); Mean Corpuscular Volume 88.1 fL (80.0-94.0); Mean Platelet Volume 11.8 fL (9.5-13.5); Monocytes Absolute Auto 0.6 10^3/uL (0.3-0.8); Monocytes Percent Auto 10.2 % (1.7-12.0); Neutrophils Absolute Auto 4.2 10^3/uL (1.4-6.5); Neutrophils Percent Auto 67.4 % (43.0-75.0); Platelet Count 152 10^3/uL (150-450); Red Blood Count 4.04 10^6/uL (4.70-6.10); Red Cell Distribution Width 13.7 % (11.0-15.0); White Blood Count 6.2 10^3/uL (4.0-11.0)
[2024-04-01 16:32] LABS: INR 0.98; Prothrombin Time 10.4 sec (9.0-11.6)
[2024-04-01 16:40] LABS: Alanine Aminotransferase 19 U/L (16-63); Albumin Level 3.3 g/dL (3.4-5.0); Alkaline Phosphatase 91 U/L (46-116); Anion Gap 13.7; Aspartate Amino Transferase 12 U/L (15-37); BUN Creatinine Ratio 11.5; Bilirubin Total 0.4 mg/dL (0.2-1.0); Calcium 8.5 mg/dL (8.5-10.1); Carbon Dioxide 26.5 mmol/L (21.0-32.0); Chloride 102 mmol/L (98-107); Estimated GFR (African America 52 (>=60); Estimated GFR (Non-African Ame 43 (>=60); Globulin 3.3 g/dL; Glucose 234 mg/dL (74-106); Potassium 4.2 mmol/L (3.5-5.1); Sodium 138 mmol/L (136-145); Total Protein 6.6 g/dL (6.4-8.2)
[2024-04-01 16:48] LABS: Troponin I High Sensitivity 5.8 pg/mL (4.0-76.1)
[2024-04-01 17:42] LABS: Troponin I High Sensitivity 5.9 pg/mL (4.0-76.1)
--- OUTSIDE RECORDS SUMMARY | 2024-04-01 19:18 | XMS_ITS | CCD ---
Author Organization [facility] Informat ion Partnership [facility] Care Team Providers Care 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 Name Role Phone GENE FAJARDO Admitting Unavailable GENE FAJARDO Attending Unavailable AUGUSTINE METZ Primary Care Unavailable RYAN CARDENAS Referring Unavailable Augustine Metz Primary Care Provider [phone] Augustine Metz DO Primary Care Provider [phone] Augustine Metz DO Primary Care Provider Carmen Kahn Unavailable AUGUSTINE METZ Primary Care Physician Augustine Metz DO Primary Care Provider Damari Rojas Unavailable Unavailable Alyssa, Mago Osman [...] BALL, DR PEREZ Admitting Unavailable BALL, DR PREEZ Attending Unavailable FAWWAD, CARTER H Attending Unavailable [...] Unavailable Ball Augustine MADDEN Primary Care Provider [phone] AZUL RACHEL Attending Unavailable VIRGINIE, AZUL Referring [...] Provider DO Augustine Metz Primary Care Provider MurDO Augustine vincent Attending Provider Augustine Freitas Attending Unavailable Augustine Freitas Admitting Unavailable Isaías, Augustine Primary Care Unavailable Isaías, Augustine Primary Care Unavailable Augustine Freitas Attending Unavailable Augustine Freitas Admitting Unavailable JOSE R DODD Attending Unavailable JOSE R DODD Attending Unavailable JOSE R DODD Attending Unavailable OSMAN SHAH Attending Unavailable CHRISTIN BOLTON Attending Unavailable AUGUSTINE FREITAS Attending Unavailable [...] MOUKARBELOLIVER Referring Unavailable ELDELORES, MAGGY Attending Unavailable MAIDSON PAUL Referring Unavailable MOUKARBEL, OLIVER Attending Unavailable [...] Allergy 08-31-20 09 Unknown, Unknown Reaction [facility] Repository (7 sources) Penicillins; Translations: [PENICILLINS] Drug allergy (disorder) 08-01-19 63 Unknown Reaction, Hives [facility] Repository (7 sources) Sulfonamides (Antibiotic); Translations: [SULFA (SULFONAMIDE ANTIBIOTICS)] Drug allergy (disorder) 08-31-19 93 Swelling [facility] Repository (2 sources) Shellfish Containing Products; Translations: [Shellfish Containing Products] Food allergy (disorder) 08-31-20 09 [facility] Repository (16 sources) Iodine; Translations: [iodine] Drug Allergy 08-31-20 09 Swelling, Unknown (qualifier value), Anaphylaxis [facility] (18 sources) Penicillin G Drug Allergy 10-20-19 13 Hives [facility] (14 sources) Shellfish Propensity to adverse reactions to drug 08-31-20 09 Swelling, Other [facility] (12 sources) Sulfonamides (Antibiotic) Propensity to adverse reactions to drug 10-20-19 13 Swelling [facility] (11 sources) Penicillins (Antibiotic) Drug allergy Unknown [facility] Other (15 sources) Shrimp product Propensity to adverse reactions 01-31-20 24 Unknown, Unknown Reaction [facility] (11 sources) Sulfonamides (Antibiotic) Drug allergy Unknown [facility] Other (5 sources) Penicillin; Translations: [penicillin] Drug Allergy Unknown (qualifier value) [facility] (1 source) Sulfonamides (Antibiotic); Translations: [sulfa drugs] Drug allergy Unknown (qualifier value) [facility] (1 source) No Alert Propensity to adverse reactions to drug 09-14-20 [facility] (1 source) Penicillin Drug Allergy 10-01-19 [facility] (1 source) Propensity to adverse reactions to drug 10-01-19 23 [facility] (1 source) Iodine Drug Allergy 08-30-20 13 [facility] (1 source) Shellfish Drug allergy (disorder) 08-30-20 13 [facility] (4 sources) sulfADIAZINE Drug Allergy Unknown [facility] Other (6 sources) Substance with sulfonamide structure and antibacterial mechanism of action (substance) Drug allergy 08-31-19 93 Rash, Swelling [facility] Other (1 source) sulfa drug; Translations: [sulfa drug] Propensity to adverse reactions to drug (disorder) [facility] Repository (2 sources) Penicillin V Drug Allergy 01-23-20 23 [facility] (2 sources) Penicillins Drug Allergy 08-01-19 63 Hives [facility] (2 sources) Other Allergy to substance 06-30-20 23 Other [facility] (2 sources) Shellfish-Derived Products Drug Allergy 10-20-19 13 Swelling [facility] (5 sources) Shellfish; Translations: [shellfish derived] Allergy to substance 01-31-20 24 Unknown Reaction [facility] (1 source) Iodine Drug Allergy 02-27-20 24 [facility] Repository (1 source) Penicillins Drug allergy (disorder) 02-27-20 [facility] Repository (1 source) Shrimp product Drug allergy (disorder) 02-27-20 [facility] Repository (1 source) Sulfonamides (Antibiotic) Drug allergy (disorder) 02-27-20 [facility] Repository Medications Current Medications Medication Drug [...] Status: Ordered take 2 tablets by mo [facility] every eight hours Tylenol 8 Hour 650 [...] Aggregation Inhibitor, Nonsteroidal Anti-inflammatory Drug Start: 10-01-2022 [id number] Medication aspirin aspirin 300 mg 10/01/2022 Active [...] AREDS PO) Take by mouth. 0 Active Multivitamin-Front Man als-Lutein (A Thru Z High Potency) tablet (4 sources) Start: 11-10-2021 take 1 tablet by mouth twice daily Multivitamin-Mine rals-Lutein (A Thru Z High Potency) tablet Active 1 TAB PO Twice daily November 10, 2021 1:00am Start: 11-10-2021 take 1 tablet by wendy th once daily Efhjbmxdijlz-Vezmfyew-Zrwnue (A Thru Z H igh Potency) tablet Active 1 TAB PO Daily November 10, 2021 1:00am omeprazole 20 mg delayed release oral capsule (20 sources) Proton Pump Inhibitor Start: 12-27-2017 take 20 mg by mouth once daily Omeprazole Active 20 MG PO Daily November 10, 2021 1:00am primidone 250 mg oral tablet (1 source) Anti-epileptic Agent Start: 08-21-2022 [id number] Medication omeprazole 20 mg capsule,delayed release omeprazole 20 mg capsule,delayed release 20 mg 08/21/2022 Active (Outside) therapeutic multivitamin-minera ls tablet (7 sources) Start: 03-15-2022 take 1 tablet by mouth at bedtime therapeutic multivitamin-yarn examiner als tablet Take 1 tablet by [...] XL docusate sodium 50 mg / sennosides, group home 8.6 mg oral tablet (1 source) Start: [...] 31, 2024 3:31pm 7.5mg on Sat. 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] Onset: 3 Episodic Other aftercare (5 sources) Encounter for therapeutic drug level monitoring; Translations: [ENC THERAPEUTC DRUG LEVL MONITORING] Onset: 3 Episodic Other aftercare (1 source) FPC (current) 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; Translations: [ASSISTED CURRENT USE OF ASPIRIN] Onset: 3 Episodic Other aftercare (1 source) Other fci (current) drug therapy; Translations: [OTH CAR PAINTER CURRENT DRUG THERAPY] Onset: 3 Episodic Other [...] Range Facility Office Visiton 03-22-2024 Follow-up visit [id number] Amina Goncalves 1945 M Date Provider Department Center 03/22/2024 OLIVER RUELAS Amilcar Pamela Family History Problem Relation Age of Onset Cancer Mother Heart attack Other Family Status - Relation Status Age at Mother Other Level of Service:65758 AR OFFICE/OUTPATIENT ESTABLISHED LOW MDM 20 MIN Normal [facility] HPon 03-16-2024 History Of Present I llness [...] a hospital admission) Transesophageal echo (JESSICA) 01/24/2024 [id number] Final Review of Systems Constitutional: Positive for [...] left atrial appendage closure per protocol. Normal [facility] NURSNOTEon 03-16-2024 NURSNOTE Bedside swallow stud y passed. Normal [facility] NURSNOTE RN educated pt on d/ c instructions. RN encouraged pt to voice any questions or concerns. Pt verbalizes no questions or concerns at this time. Normal [facility] Capillary blood glucose winifred urement by glucometer (mass/volume)Ordered By: Augustine Freitas on 02-24-2024 Glucose [Mass/Vol] 124 mg/dL Normal [facility] Comment on above: Random Glucose Refer ence Range is dependent on time and content of last meal. Glucose of more than 200 mg/dL in a nonstressed, ambulatory subject supports the diagnosis of Diabetes Mellitus. Result Comment: [facility] Glucose Reference Range is dependent on time and content of last meal. Glucose of more than 200 mg/dL in a nonstressed, ambulatory subject supports the diagnosis of Diabetes Mellitus. Performed By: #### G LULS #### Point of Care testing , Glucose Poct Glucometerson 0 02-24-2024 Commemt1 Glu2: Cleaned Meter Normal [facility] Comment on above: Result Comment: PERF ORMED BY: [place] [address] PATHOLOGIST DISC RECORDIST RICKY STRANGE M.D. Performed By: #### G LULS #### Point of Care testing , No Panel InformationOrdered By: Augustine Freitas on 02-24-2024 Bedside Glucose Comment Glu2: cleaned meter [facility] 36on 02-16-2024 36 There are pictures i n media Normal [facility] ECG 12 lead ECGon 02-16-2024 ECG 12 lead ECG [facility] [place] [address] [place], [place] [id number] Electrocardiograph Report Signed Patient: Tito Goncalves MR#: [id number] 70 : 1945 Acct:[id number] Age/Sex: 79 / M ADM Date: 02/16/24 Loc: Room: Type: [facility] Attending Dr: Augustine Freitas DO Ordering Provider: [...] T wave abnormality Confirmed by Viviane Herman ([id number]) on 02/17/2024 12:43:51 PM Referred By: JAMAR Electronically Signed By:Viviane Herman Transcribed By: MUS Signed By Viviane Herman MD 4 1243 Normal [facility] Office Visiton 02-09-2024 Follow-up visit [id number] Amina Goncalves 1945 M Date Provider Department Center 02/09/2024 Daily-MADISON PAUL CARD Amilcar Hos Family History Problem Relation Age of Onset Cancer Mother Heart attack Other Family Status - Relation Status Age at Mother Other Level of Service:21266 AR OFFICE/OUTPATIENT ESTABLISHED LOW MDM 20 MIN Reason for Visit and Comments: Atrial Fibrillation [80] - S/p LAAO with Amulet device Normal [facility] 30on 01-29-2024 30 The patient is Moder [...] Goal: Maintains hematologic stability Outcome: Progressing Normal [facility] BASIC METABOLIC PANELon 05-0 Anion gap [Moles/Vol] 11 mmol/L Normal 7-20 [facility] Comment on above: Performed By: #### L [id number] #### [facility] (BEAKER) [address] [place] [address] Calcium [Mass/Vol] 8.0 mg/dL Low 8.6-10.3 [facility] Comment on above: Performed By: #### L [id number] #### [facility] ([facility]AK[facility]) [address] [place] [address] Chloride [Moles/Vol] 109 mmol/L High 98-107 [facility] Comment on above: Performed By: #### L [id number] #### [facility] ([facility]AKER) [address] [place] [address] CO2 [Moles/Vol] 24 mmol/L Normal 21-31 [facility] Comment on above: Performed By: #### L [id number] #### [facility] ([facility]AKER) [address] [place] [address] Creatinine [Mass/Vol] 1.17 mg/dL Normal 0.70-1.30 [facility] Comment on above: Performed By: #### L [id number] #### [facility] ([facility]AK[facility]) [address] [place] [address] GLOMERULAR FILTRATION RATE ML/MIN/1.73 SQ M.PREDICTED 63.8 mL/min/1.73m*2 Normal >60.0 [facility] Comment on above: Result Comment: [facility]???s estimated glomerular filtration rate (eGFR) will no [...] individuals. Performed By: #### L [id number] #### [facility] ([facility]) [address] [place] [address] Glucose [Mass/Vol] 125 mg/dL High 70-100 [facility] Comment on above: Performed By: #### L [id number] #### [facility] ([facility]) [address] [place] [address] Potassium [Moles/Vol] 3.6 mmol/L Normal 3.5-5.1 [facility] Comment on above: Performed By: #### L [id number] #### [facility] ([facility]) [address] [place] [address] Sodium [Moles/Vol] 140 mmol/L Normal 136-145 [facility] Comment on above: Performed By: #### L [id number] #### [facility] ([facility]) [address] [place] [address] Urea nitrogen [Mass/Vol] 22 mg/dL Normal 7-25 [facility] Comment on above: Performed By: #### L [id number] #### [facility] ([facility]) [address] [place] [address] UREA NITROGEN/CREATININE (MASS RATIO) IN SER/PLAS 18.8 Normal [facility] Comment on above: Performed By: #### L [id number] #### [facility] ([facility]) [address] [facility] [place] [address] CBCon 01-29-2024 Erythrocyte distribution width (RBC) [Ratio] 14.6 % Normal 11.5-15.0 [facility] Comment on above: Performed By: #### L [id number] #### [facility] [address] [place] [address] ERYTHROCYTE MEAN CORPUSCULAR HEMOGLOBIN CONCENTRATION (G/DL) BY AUTOMATED 32.8 g/dL Normal 32.0-35.0 [facility] Comment on above: Performed By: #### L [id number] #### [facility] ([facility]) [address] [place] [address] Hematocrit (Bld) [Volume fraction] 30.5 % Low 39.0-55.0 [facility] Comment on above: Performed By: #### L [id number] #### [facility] [address] [address] Hemoglobin (Bld) [Mass/Vol] 10.0 g/dL Low 13.0-17.0 [facility] Comment on above: Performed By: #### L [id number] #### [facility] ([facility]) [address] [address] MCH (RBC) [Entitic mass] 29.1 pg Normal 27.0-33.0 [facility] Comment on above: Performed By: #### L [id number] #### [facility] ([facility]AK[facility]) [address] [place] [address] MCV (RBC) [Entitic vol] 88.7 fL Normal 82.0-98.0 [facility] Comment on above: Performed By: #### L [id number] #### [facility] [address] [address] PLATELETS (10*3/UL) IN BLOOD AUTOMATED COUNT 151 10*3/uL Normal 150-400 [facility] Comment on above: Performed By: #### L [id number] #### [facility] ([facility]) [address] [place] [address] RBC (Bld) [#/Vol] 3.44 10*6/uL Low 4.20-5.70 [facility] Comment on above: Performed By: #### L [id number] #### [facility] ([facility]) [address] [place] [address] WBC (Bld) [#/Vol] 6.43 10*3/uL Normal 4.00-10.60 [facility] Comment on above: Performed By: #### L [id number] #### [facility] ([facility]) [address] [place] [address] HEMOGLOBIN A1Con 01-29-2024 Glucose [Mass/Vol] 163 mg/dL Normal [facility] Comment on above: Performed By: #### L [id number] #### [facility] ([facility]) [address] [place] [address] HbA1c (Bld) [Mass fraction] 7.3 % High 4.0-6.0 [facility] Comment on above: Performed By: #### L [id number] #### [facility] ([facility]) [address] [place] [address] POCT GLUCOSE METER UNSOLICIT ED RESULTSon 01-29-2024 Glucose [Mass/Vol] 218 mg/dL High 70-105 [facility] Comment on above: Order Comment: Waive d Testing in the ED is performed under the ED CLIA certificate #[id number]. Result Comment: [email or web address] Performed By: #### L [id number] ####[facility] ([facility])[address] [facility] [place] [address] Glucose [Mass/Vol] 138 mg/dL High 70-105 [facility] Comment on above: Order Comment: Waive d Testing in the ED is performed under the ED CLIA certificate #[id number]. Result Comment: [email or web address] Performed By: #### L [id number] #### [facility] ([facility]) [address] [place] [address] 30on 01-28-2024 30 The patient is Moder [...] fall injury Outcome: Progressing Flowsheets (Taken 01/28/2024 1759) Free from fall injury: Assess patient frequently for physical needs Identify cognitive and physical deficits and behaviors that affect risk of falls Erhard fall precautions as indicated by assessment Problem: [...] Goal: Maintains hematologic stability Outcome: Progressing Normal [facility] BASIC METABOLIC PANELon 05-0 Anion gap [Moles/Vol] 12 mmol/L Normal 7-20 [facility] Comment on above: Performed By: #### L [id number] ####[facility] ([facility])[address] [place] [address] Calcium [Mass/Vol] 7.7 mg/dL Low 8.6-10.3 [facility] Comment on above: Performed By: #### L [id number] ####[facility] ([facility])[address] [place] [address] Chloride [Moles/Vol] 108 mmol/L High 98-107 [facility] Comment on above: Performed By: #### L [id number] ####[facility] (BEAKER)[address] [place] [address] CO2 [Moles/Vol] 21 mmol/L Normal 21-31 [facility] Comment on above: Performed By: #### L [id number] ####[facility] ([facility]ER)[address] [place] [address] Creatinine [Mass/Vol] 1.16 mg/dL Normal 0.70-1.30 [facility] Comment on above: Performed By: #### L [id number] ####[facility] ([facility]ER)[address] [place] [address] GLOMERULAR FILTRATION RATE ML/MIN/1.73 SQ M.PREDICTED 64.5 mL/min/1.73m*2 Normal >60.0 [facility] Comment on above: Result Comment: [facility]???s estimated glomerular filtration rate (eGFR) will no [...] of individuals. Performed By: #### L [id number] ####[facility] ([facility])[address] [facility] [place] [address] Glucose [Mass/Vol] 143 mg/dL High 70-100 [facility] Comment on above: Performed By: #### L [id number] ####[facility] ([facility])[address] [place] [address] Potassium [Moles/Vol] 3.3 mmol/L Low 3.5-5.1 [facility] Comment on above: Performed By: #### L [id number] ####[facility] ([facility])[address] [facility] [address] Sodium [Moles/Vol] 138 mmol/L Normal 136-145 [facility] Comment on above: Performed By: #### L [id number] ####[facility] ([facility])[address] [facility] [place] [address] Urea nitrogen [Mass/Vol] 27 mg/dL High 7-25 [facility] Comment on above: Performed By: #### L [id number] ####[facility] ([facility])[address] [place] [address] UREA NITROGEN/CREATININE (MASS RATIO) IN SER/PLAS 23.3 Normal [facility] Comment on above: Performed By: #### L [id number] ####[facility] ([facility])[address] [place] [address] CBCon 01-28-2024 Erythrocyte distribution width (RBC) [Ratio] 14.4 % Normal 11.5-15.0 [facility] Comment on above: Performed By: #### L [id number] #### [facility] ([facility]) [address] [place] [address] ERYTHROCYTE MEAN CORPUSCULAR HEMOGLOBIN CONCENTRATION (G/DL) BY AUTOMATED 32.8 g/dL Normal 32.0-35.0 [facility] Comment on above: Performed By: #### L [id number] #### [facility] [address] [place] [address] Hematocrit (Bld) [Volume fraction] 31.4 % Low 39.0-55.0 [facility] Comment on above: Performed By: #### L [id number] #### [facility] ([facility] [address] [place] [address] Hemoglobin (Bld) [Mass/Vol] 10.3 g/dL Low 13.0-17.0 [facility] Comment on above: Performed By: #### L [id number] #### [facility] ([facility] [address] [place] [address] MCH (RBC) [Entitic mass] 29.0 pg Normal 27.0-33.0 [facility] Comment on above: Performed By: #### L [id number] #### [facility] ([facility] [address] [place] [address] MCV (RBC) [Entitic vol] 88.5 fL Normal 82.0-98.0 [facility] Comment on above: Performed By: #### L [id number] #### [facility] ([facility]) [address] [place] [address] PLATELETS (10*3/UL) IN BLOOD AUTOMATED COUNT 134 10*3/uL Low 150-400 [facility] Comment on above: Performed By: #### L [id number] #### [facility] ([facility]) [address] [place] [address] RBC (Bld) [#/Vol] 3.55 10*6/uL Low 4.20-5.70 [facility] Comment on above: Performed By: #### L [id number] #### [facility] [address] [place] [address] WBC (Bld) [#/Vol] 6.52 10*3/uL Normal 4.00-10.60 [facility] Comment on above: Performed By: #### L [id number] #### [facility] ([facility] [address] [place] [address] MAGNESIUMon 01-28-2024 Magnesium [Mass/Vol] 1.8 mg/dL Low 1.9-2.7 [facility] Comment on above: Performed By: #### L [id number] ####[facility] ([facility])[address] [place] [address] PHOSPHORUSon 01-28-2024 Magnesium [Mass/Vol] 2.5 mg/dL Normal 2.5-5.0 [facility] Comment on above: Performed By: #### L [id number] ####[facility] ([facility])[address] [place] [address] POCT GLUCOSE METER UNSOLICIT ED RESULTSon 01-28-2024 Glucose [Mass/Vol] 258 mg/dL High 70-105 [facility] Comment on above: Order Comment: Waive d Testing in the ED is performed under the ED CLIA certificate #[id number]. Result Comment: [email or web address] Performed By: #### L [id number] #### [facility] ([facility]) [address] [place] [address] Glucose [Mass/Vol] 133 mg/dL High 70-105 [facility] Comment on above: Order Comment: Waive d Testing in the ED is performed under the ED CLIA certificate #[id number]. Result Comment: [email or web address] Performed By: #### L [id number] ####[facility] ([facility])[address] [place] [address] Glucose [Mass/Vol] 260 mg/dL High 70-105 [facility] Comment on above: Order Comment: Waive d Testing in the ED is performed under the ED CLIA certificate #[id number]. Result Comment: [email or web address] Performed By: #### L [id number] ####[facility] ([facility])[address] [place] [address] Glucose [Mass/Vol] 140 mg/dL High 70-105 [facility] Comment on above: Order Comment: Waive d Testing in the ED is performed under the ED CLIA certificate #[id number]. Result Comment: [email or web address] Performed By: #### L [id number] #### [facility] (BEAKER) [address] [place] [address] 30on 01-27-2024 30 Daily Case Managemen t Update Multidisciplinary rounds have been completed. 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 Pericardial drain remains in place. On amiodarone gtt. Plan to discharge home when medically cleared. Diet: Dietary Orders (From admission, onward) Start Ordered 01/26/24 1247 Special Kitchen Request Once Comments: Chicken noodle soup Fruit cup Diet coke Tilapia (plain) [place] cake 01/26/24 1246 01/26/24 1246 Regular Diet [...] Answer: eval and treat 01/26/24 1241 Normal [facility] 30 The patient is Moder ately Stable [...] medication and electrolyte replacement as ordered Normal [facility] BASIC METABOLIC PANELon 05-0 Anion gap [Moles/Vol] 11 mmol/L Normal 7-20 [facility] Comment on above: Performed By: #### L [id number] ####[facility] (BEAKER)[address] [place] [address] Calcium [Mass/Vol] 7.9 mg/dL Low 8.6-10.3 [facility] Comment on above: Performed By: #### L [id number] ####[facility] (BEAKER)[address] [place] [address] Chloride [Moles/Vol] 108 mmol/L High 98-107 [facility] Comment on above: Performed By: #### L [id number] ####[facility] (BEAKER)[address] [place] [address] CO2 [Moles/Vol] 22 mmol/L Normal 21-31 [facility] Comment on above: Performed By: #### L [id number] ####[facility] (BEAKER)[address] [place] [address] Creatinine [Mass/Vol] 1.31 mg/dL High 0.70-1.30 [facility] Comment on above: Performed By: #### L [id number] ####[facility] (BEAKER)[address] [place] [address] GLOMERULAR FILTRATION RATE ML/MIN/1.73 SQ M.PREDICTED 55.7 mL/min/1.73m*2 Low >60.0 [facility] Comment on above: Result Comment: The [facility]???s estimated glomerular filtration rate (eGFR) will no [...] of individuals. Performed By: #### L [id number] ####[facility] ([facility] [place] [address] Glucose [Mass/Vol] 154 mg/dL High 70-100 [facility] Comment on above: Performed By: #### L [id number] ####[facility] ([facility] [place] [address] Potassium [Moles/Vol] 3.6 mmol/L Normal 3.5-5.1 [facility] Comment on above: Performed By: #### L [id number] ####[facility] ([facility])[address] [place] [address] Sodium [Moles/Vol] 137 mmol/L Normal 136-145 [facility] Comment on above: Performed By: #### L [id number] ####[facility] ([facility])[address] [facility] [place] [address] Urea nitrogen [Mass/Vol] 30 mg/dL High 7-25 [facility] Comment on above: Performed By: #### L [id number] ####[facility] ([facility])[address] [facility] [place] [address] UREA NITROGEN/CREATININE (MASS RATIO) IN SER/PLAS 22.9 Normal [facility] Comment on above: Performed By: #### L [id number] ####[facility] ([facility])[address] [facility] [place] [address] CBCon 01-27-2024 Erythrocyte distribution width (RBC) [Ratio] 14.5 % Normal 11.5-15.0 [facility] Comment on above: Performed By: #### L [id number] ####[facility] ([facility])[address] [facility] [place] [address] ERYTHROCYTE MEAN CORPUSCULAR HEMOGLOBIN CONCENTRATION (G/DL) BY AUTOMATED 32.2 g/dL Normal 32.0-35.0 [facility] Comment on above: Performed By: #### L [id number] ####[facility] ([facility])[address] [place] [address] Hematocrit (Bld) [Volume fraction] 31.4 % Low 39.0-55.0 [facility] Comment on above: Performed By: #### L [id number] ####[facility] ([facility])[address] [place] [address] Hemoglobin (Bld) [Mass/Vol] 10.1 g/dL Low 13.0-17.0 [facility] Comment on above: Performed By: #### L [id number] ####[facility] ([facility])[address] [place] [address] MCH (RBC) [Entitic mass] 29.0 pg Normal 27.0-33.0 [facility] Comment on above: Performed By: #### L [id number] ####[facility] ([facility])[address] [place] [address] MCV (RBC) [Entitic vol] 90.2 fL Normal 82.0-98.0 [facility] Comment on above: Performed By: #### L [id number] ####[facility] ([facility])[address] [place] [address] PLATELETS (10*3/UL) IN BLOOD AUTOMATED COUNT 134 10*3/uL Low 150-400 [facility] Comment on above: Performed By: #### L [id number] ####[facility] ([facility])[address] [place] [address] RBC (Bld) [#/Vol] 3.48 10*6/uL Low 4.20-5.70 [facility] Comment on above: Performed By: #### L [id number] ####[facility] (BEAKER)[address] [place] [address] WBC (Bld) [#/Vol] 8.70 10*3/uL Normal 4.00-10.60 [facility] Comment on above: Performed By: #### L [id number] ####[facility] (BEAKER)[address] [place] [address] MAGNESIUMon 01-27-2024 Magnesium [Mass/Vol] 2.0 mg/dL Normal 1.9-2.7 [facility] Comment on above: Performed By: #### L [id number] #### [facility] (BEAKER) [address] [place] [address] NURSNOTEon 01-27-2024 NURSNOTE Patient Name: Tito Goncalves [...] voiced no concerns at this time. The comic book writer urged the primary RN to call the rapid team if any concerns arise overnight. Vic Euceda, ROMAINE Rapid Response Team Nurse [phone] 01/27/2024 9:04 PM Normal [facility] NURSNOTE Patient Name: Tito Goncalves : 1945 [...] this time. Vital signs are stable via progressive care nurse and daily lab values are unremarkable. If emergent concerns arise, please call rapid response team. Dominga Millard RN Rapid Response Team Nurse [phone] 01/27/2024 12:15 PM Normal [facility] PHOSPHORUSon 01-27-2024 Magnesium [Mass/Vol] 2.2 mg/dL Low 2.5-5.0 [facility] Comment on above: Performed By: #### L [id number] #### [facility] ([employer]) [address] [place] [address] POCT GLUCOSE METER UNSOLICIT ED RESULTSon 01-27-2024 Glucose [Mass/Vol] 206 mg/dL High 70-105 [facility] Comment on above: Order Comment: Waive d Testing in the ED is performed under the ED CLIA certificate #[id number]. Result Comment: [email or web address] Performed By: #### L [id number] #### [facility] ([employer]) [address] [place] [address] Glucose [Mass/Vol] 187 mg/dL High 70-105 [facility] Comment on above: Order Comment: Waive d Testing in the ED is performed under the ED CLIA certificate #[id number]. Result Comment: [email or web address] Performed By: #### L [id number] #### [facility] ([employer]) [address] [place] [address] Glucose [Mass/Vol] 223 mg/dL High 70-105 [facility] Comment on above: Order Comment: Waive d Testing in the ED is performed under the ED CLIA certificate #[id number]. Result Comment: [email or web address] Performed By: #### L [id number] #### [facility] (BEAKER) [address] [place] [address] Glucose [Mass/Vol] 160 mg/dL High 70-105 [facility] Comment on above: Order Comment: Waive d Testing in the ED is performed under the ED CLIA certificate #[id number]. Result Comment: [email or web address] Performed By: #### L [id number] #### [facility] (BEAKER) [address] [place] [address] 30on 01-26-2024 30 Daily Case Managemen t [...] soup Fruit cup Diet coke Tilapia (plain) [place] cake 01/26/24 1246 01/26/24 1246 Regular Diet [...] Answer: eval and treat 01/26/24 1241 Normal [facility] BASIC METABOLIC PANELon 05-0 Anion gap [Moles/Vol] 12 mmol/L Normal 7-20 [facility] Comment on above: Performed By: #### L [id number] #### [facility] (BEAKER) [address] [place] [address] Calcium [Mass/Vol] 7.6 mg/dL Low 8.6-10.3 [facility] Comment on above: Performed By: #### L [id number] #### [facility] (BEAKER) [address] [place] [address] Chloride [Moles/Vol] 109 mmol/L High 98-107 [facility] Comment on above: Performed By: #### L [id number] #### [facility] ([facility]) [address] [place] [address] CO2 [Moles/Vol] 21 mmol/L Normal 21-31 [facility] Comment on above: Performed By: #### L [id number] #### [facility] ([facility]) [address] [place] [address] Creatinine [Mass/Vol] 1.62 mg/dL High 0.70-1.30 [facility] Comment on above: Performed By: #### L [id number] #### [facility] ([facility]) [address] [place] [address] GLOMERULAR FILTRATION RATE ML/MIN/1.73 SQ M.PREDICTED 43.2 mL/min/1.73m*2 Low >60.0 [facility] Comment on above: Result Comment: The [facility]???s estimated glomerular filtration rate (eGFR) will no [...] group of individuals. Performed By: #### L [id number] #### [facility] ([facility]) [address] [place] [address] Glucose [Mass/Vol] 152 mg/dL High 70-100 [facility] Comment on above: Performed By: #### L [id number] #### [facility] ([facility]) [address] [place] [address] Potassium [Moles/Vol] 3.9 mmol/L Normal 3.5-5.1 [facility] Comment on above: Performed By: #### L [id number] #### [facility] ([facility]) [address] [place] [address] Sodium [Moles/Vol] 138 mmol/L Normal 136-145 [facility] Comment on above: Performed By: #### L [id number] #### [facility] ([facility]) [address] [place] [address] Urea nitrogen [Mass/Vol] 37 mg/dL High 7-25 [facility] Comment on above: Performed By: #### L [id number] #### [facility] ([facility]) [address] [place] [address] UREA NITROGEN/CREATININE (MASS RATIO) IN SER/PLAS 22.8 Normal [facility] Comment on above: Performed By: #### L [id number] #### [facility] ([facility]) [address] [place] [address] CBCon 01-26-2024 Erythrocyte distribution width (RBC) [Ratio] 14.5 % Normal 11.5-15.0 [facility] Comment on above: Performed By: #### L [id number] #### [facility] ([facility]) [address] [place] [address] ERYTHROCYTE MEAN CORPUSCULAR HEMOGLOBIN CONCENTRATION (G/DL) BY AUTOMATED 31.9 g/dL Low 32.0-35.0 [facility] Comment on above: Performed By: #### L [id number] #### [facility] ([facility]) [address] [place] [address] Hematocrit (Bld) [Volume fraction] 33.2 % Low 39.0-55.0 [facility] Comment on above: Performed By: #### L [id number] #### [facility] ([facility]) [address] [place] [address] Hemoglobin (Bld) [Mass/Vol] 10.6 g/dL Low 13.0-17.0 [facility] Comment on above: Performed By: #### L [id number] #### [facility] ([facility]) [address] [place] [address] MCH (RBC) [Entitic mass] 29.1 pg Normal 27.0-33.0 [facility] Comment on above: Performed By: #### L [id number] #### [facility] ([facility]) [address] [place] [address] MCV (RBC) [Entitic vol] 91.2 fL Normal 82.0-98.0 [facility] Comment on above: Performed By: #### L [id number] #### [facility] ([facility]) [address] [place] [address] PLATELETS (10*3/UL) IN BLOOD AUTOMATED COUNT 123 10*3/uL Low 150-400 [facility] Comment on above: Performed By: #### L [id number] #### [facility] ([facility]) [address] [place] [address] RBC (Bld) [#/Vol] 3.64 10*6/uL Low 4.20-5.70 [facility] Comment on above: Performed By: #### L [id number] #### [facility] ([facility]) [address] [place] [address] WBC (Bld) [#/Vol] 12.08 10*3/uL High 4.00-10.60 [facility] Comment on above: Performed By: #### L [id number] #### [facility] ([facility]) [address] [place] [address] MAGNESIUMon 01-26-2024 Magnesium [Mass/Vol] 1.9 mg/dL Normal 1.9-2.7 [facility] Comment on above: Performed By: #### L [id number] #### [facility] (BEAKER) [address] [place] [address] NURSNOTEon 01-26-2024 NURSNOTE Patient Name: Tito Goncalves [...] time, but encouraged to reach out to MAGNETIC RESONANCE IMAGING DIRECTOR if anything changes overnight or with any further concerns. Suleman Ortiz RN Rapid Response Team Nurse [phone] 01/26/2024 10:20 PM Normal [facility] PHOSPHORUSon 01-26-2024 Magnesium [Mass/Vol] 3.7 mg/dL Normal 2.5-5.0 [facility] Comment on above: Performed By: #### L [id number] ####[facility] ([facility])[address] [place] [address] POCT GLUCOSE METER UNSOLICIT ED RESULTSon 01-26-2024 Glucose [Mass/Vol] 163 mg/dL High 70-105 [facility] Comment on above: Order Comment: Waive d Testing in the ED is performed under the ED CLIA certificate #[id number]. Result Comment: [email or web address] Performed By: #### L [id number] #### [facility] (BEAKER) [address] [place] [address] Glucose [Mass/Vol] 206 mg/dL High 70-105 [facility] Comment on above: Order Comment: Waive d Testing in the ED is performed under the ED CLIA certificate #[id number]. Result Comment: [email or web address] Performed By: #### L [id number] ####[facility] (BEAKER)[address] [facility] [place] [address] Glucose [Mass/Vol] 155 mg/dL High 70-105 [facility] Comment on above: Order Comment: Waive d Testing in the ED is performed under the ED CLIA certificate #[id number]. Result Comment: [email or web address] Performed By: #### L [id number] #### [facility] (BEAKER) [address] [place] [address] Glucose [Mass/Vol] 150 mg/dL High 70-105 [facility] Comment on above: Order Comment: Waive d Testing in the ED is performed under the ED CLIA certificate #[id number]. Result Comment: [email or web address] Performed By: #### L [id number] #### [facility] (AKER) [address] [place] [address] 30on 01-25-2024 30 Daily Case Managemen t Update Multidisciplinary rounds have been completed. Barriers to Discharge: 01/24- patient here for planned atrial appendage closure. Per morning meeting the patient fell this morning, presumably from hypotension (BP in 60s/70s). Gave patient fluids to rescusitate but was unsuccessful. Patient was started on levophed and brought to MICU. ECHO showed pericardia effusion, went to laboratory inspector this morning for pericardiocentesis. Patient has pericardial drain. May need pt ot given age but would anticipate home maybe with [facility]. CB Diet: Dietary Orders (From admission, onward) Start Ordered 01/24/24 1051 Regular Diet Diabetic Male (carb 60g/meal) Diet effective now Question Answer Comment Room Service? Yes Carbohydrate restriction: Diabetic Male (carb 60g/meal) 01/24/24 1050 Physician Expected Discharge Date: 01/25/2024 Discharge Delays: PT Six Click Score: 21 OT Six Click Score: PT Recommendations: OT Recommendations: New Consults: Normal [facility] BASIC METABOLIC PANELon 05-0 Anion gap [Moles/Vol] 18 mmol/L Normal 7-20 [facility] Comment on above: Performed By: #### L [id number] ####[facility] ([facility] [place] [address] Calcium [Mass/Vol] 7.8 mg/dL Low 8.6-10.3 [facility] Comment on above: Performed By: #### L [id number] ####[facility] ([facility])[address] [place] [address] Chloride [Moles/Vol] 104 mmol/L Normal 98-107 [facility] Comment on above: Performed By: #### L [id number] ####[facility] ([facility])[address] [place] [address] CO2 [Moles/Vol] 20 mmol/L Low 21-31 [facility] Comment on above: Performed By: #### L [id number] ####[facility] ([facility])[address] [place] [address] Creatinine [Mass/Vol] 1.99 mg/dL High 0.70-1.30 [facility] Comment on above: Performed By: #### L [id number] ####[facility] ([facility])[address] [place] [address] GLOMERULAR FILTRATION RATE ML/MIN/1.73 SQ M.PREDICTED 33.7 mL/min/1.73m*2 Low >60.0 [facility] Comment on above: Result Comment: The [facility]???s estimated glomerular filtration rate (eGFR) will no [...] of individuals. Performed By: #### L [id number] ####[facility] ([facility])[address] [place] [address] Glucose [Mass/Vol] 257 mg/dL High 70-100 [facility] Comment on above: Performed By: #### L [id number] ####[facility] ([facility])[address] [place] [address] Potassium [Moles/Vol] 5.0 mmol/L Normal 3.5-5.1 [facility] Comment on above: Performed By: #### L [id number] ####[facility] ([facility])[address] [place] [address] Sodium [Moles/Vol] 137 mmol/L Normal 136-145 [facility] Comment on above: Performed By: #### L [id number] ####[facility] ([facility])[address] [place] [address] Urea nitrogen [Mass/Vol] 30 mg/dL High 7-25 [facility] Comment on above: Performed By: #### L [id number] ####[facility] ([facility])[address] [place] [address] UREA NITROGEN/CREATININE (MASS RATIO) IN SER/PLAS 15.1 Normal [facility] Comment on above: Performed By: #### L [id number] ####[facility] ([facility])[address] [place] [address] BLOOD CULTUREon 01-25-2024 Bacteria identified Cx Nom (Bld) No growth at 5 days Normal [facility] Comment on above: Order Comment: Waive d Testing in the ED is performed under the ED CLIA certificate #[id number]. Performed By: #### L [id number] #### [facility] ([facility]) [address] [place] [address] Bacteria identified Cx Nom (Bld) No growth at 5 days Normal [facility] Comment on above: Performed By: #### L [id number] #### [facility] ([facility]) [address] [place] [address] CBCon 01-25-2024 Erythrocyte distribution width (RBC) [Ratio] 14.1 % Normal 11.5-15.0 [facility] Comment on above: Performed By: #### L [id number] #### [facility] ([facility] [address] [place] [address] ERYTHROCYTE MEAN CORPUSCULAR HEMOGLOBIN CONCENTRATION (G/DL) BY AUTOMATED 31.9 g/dL Low 32.0-35.0 [facility] Comment on above: Performed By: #### L [id number] #### [facility] ([facility]) [address] [place] [address] Hematocrit (Bld) [Volume fraction] 34.5 % Low 39.0-55.0 [facility] Comment on above: Performed By: #### L [id number] #### [facility] ([facility]) [address] [place] [address] Hemoglobin (Bld) [Mass/Vol] 11.0 g/dL Low 13.0-17.0 [facility] Comment on above: Performed By: #### L [id number] #### [facility] ([facility]) [address] [place] [address] MCH (RBC) [Entitic mass] 28.9 pg Normal 27.0-33.0 [facility] Comment on above: Performed By: #### L [id number] #### [facility] ([facility]) [address] [place] [address] MCV (RBC) [Entitic vol] 90.6 fL Normal 82.0-98.0 [facility] Comment on above: Performed By: #### L [id number] #### [facility] ([facility]) [address] [place] [address] PLATELETS (10*3/UL) IN BLOOD AUTOMATED COUNT 191 10*3/uL Normal 150-400 [facility] Comment on above: Performed By: #### L [id number] #### [facility] (BEAKER) [address] [place] [address] RBC (Bld) [#/Vol] 3.81 10*6/uL Low 4.20-5.70 [facility] Comment on above: Performed By: #### L [id number] #### [facility] (BEAKER) [address] [place] [address] WBC (Bld) [#/Vol] 13.57 10*3/uL High 4.00-10.60 [facility] Comment on above: Performed By: #### L [id number] #### [facility] ([employer]) [address] [place] [address] CONSULTon 01-25-2024 CONSULT ------ -- Attestation signed [...] Goncalves Age - 79 y.o. - 1945 [facility] # - [id number] Date of Admission - 01/24/2024 10:46 AM [...] complication and patient was admitted to the [facility] for over night monitoring to be continued [...] mL, i (more content not included)... Normal [facility] CT CERVICAL SPINE WO IV CONT Dennis [...] signed: Trenton Martinez. 9 Invalid Interpretation Code [facility] CT CHEST WO IV CONTRASTon CT CHEST [...] signed: Trenton Martinez. 5 Invalid Interpretation Code [facility] CT HEAD WO IV CONTRASTon CT HEAD [...] the findings in this report. Electronically signed: Tretnon Martinez. 1 Invalid Interpretation Code [facility] HPon 01-25-2024 HP H&P reviewed. The pa [...] procedure. He would like to proceed. Normal [facility] LACTIC ACID WITH 4 HOUR REFL EXon 01-25-2024 LACTATE (MMOL/L) IN SER/PLAS 2.1 mmol/L Normal 0.5-2.2 [facility] Comment on above: Performed By: #### L [id number] ####[facility] (BEAKER)[address] [place] [address] LACTATE (MMOL/L) IN SER/PLAS 3.3 mmol/L Critically high 0.5-2.2 [facility] Comment on above: Performed By: #### L [id number] #### [facility] ([facility]) [address] [place] [address] MAGNESIUMon 01-25-2024 Magnesium [Mass/Vol] 1.8 mg/dL Low 1.9-2.7 [facility] Comment on above: Performed By: #### L [id number] #### [facility] ([facility]) [address] [place] [address] POCT GLUCOSE METER UNSOLICIT ED RESULTSon 01-25-2024 Glucose [Mass/Vol] 164 mg/dL High 70-105 [facility] Comment on above: Order Comment: Waive d Testing in the ED is performed under the ED CLIA certificate #[id number]. Result Comment: tful ks2 Performed By: #### L [id number] #### [facility] ([facility]) [address] [place] [address] Glucose [Mass/Vol] 134 mg/dL High 70-105 [facility] Comment on above: Order Comment: Waive d Testing in the ED is performed under the ED CLIA certificate #[id number]. Result Comment: amur tad Performed By: #### L [id number] #### [facility] ([facility]) [address] [place] [address] Glucose [Mass/Vol] 167 mg/dL High 70-105 [facility] Comment on above: Order Comment: Waive d Testing in the ED is performed under the ED CLIA certificate #[id number]. Result Comment: amur tad Performed By: #### L [id number] #### [facility] ([facility]) [address] [place] [address] Glucose [Mass/Vol] 208 mg/dL High 70-105 [facility] Comment on above: Order Comment: Waive d Testing in the ED is performed under the ED CLIA certificate #[id number]. Result Comment: amur tad Performed By: #### L [id number] ####[facility] ([facility])[address] [place] [address] Glucose [Mass/Vol] 270 mg/dL High 70-105 [facility] Comment on above: Order Comment: Waive d Testing in the ED is performed under the ED CLIA certificate #[id number]. Result Comment: nbow en Performed By: #### L [id number] ####[facility] ([facility])[address] [place] [address] PROCALCITONIN TESTon 024 PROCALCITONIN IN BLOOD 0.05 ng/mL Normal 0.00-0.10 [facility] Comment on above: Result Comment: Susp ected [...] and initial PCT<0.5ng/mL Performed By: #### L [id number] #### [facility] ([facility]) [address] [place] [address] PROTIME-INRon 01-25-2024 INR IN PPP BY COAGULATION ASSAY 1.24 High 0.90-1.10 [facility] Comment on above: Result Comment: ACCC P [...] RANGE. CHEST 1995;108:231S-246S. Performed By: #### L [id number] #### [facility] ([employer]) [address] [place] [address] PROTHROMBIN TIME (PT) IN PPP BY COAGULATION ASSAY 15.7 Seconds High 12.3-14.8 [facility] Comment on above: Performed By: #### L [id number] #### [facility] ([facility]) [address] [place] [address] TROPONIN Ion 01-25-2024 Troponin I.cardiac [Mass/Vol] 0.84 ng/mL Critically high 0.00-0.04 [facility] Comment on above: Performed By: #### L [id number] ####[facility] ([facility])[address] [place] [address] 30on 01-24-2024 30 The patient is Moder [...] and maintained or improved Outcome: Progressing Normal [facility] BASIC METABOLIC PANELon 04-3 Anion gap [Moles/Vol] 13 mmol/L Normal 7-20 [facility] Comment on above: Performed By: #### L [id number] ####[facility] ([facility])[address] [place] [address] Calcium [Mass/Vol] 8.8 mg/dL Normal 8.6-10.3 [facility] Comment on above: Performed By: #### L [id number] ####[facility] ([facility])[address] [place] [address] Chloride [Moles/Vol] 103 mmol/L Normal 98-107 [facility] Comment on above: Performed By: #### L [id number] ####[facility] ([facility])[address] [place] [address] CO2 [Moles/Vol] 25 mmol/L Normal 21-31 [facility] Comment on above: Performed By: #### L [id number] ####[facility] ([facility])[address] [place] [address] Creatinine [Mass/Vol] 1.26 mg/dL Normal 0.70-1.30 [facility] Comment on above: Performed By: #### L [id number] ####[facility] ([facility])[address] [place] [address] GLOMERULAR FILTRATION RATE ML/MIN/1.73 SQ M.PREDICTED 58.4 mL/min/1.73m*2 Low >60.0 [facility] Comment on above: Result Comment: The [facility]???s estimated glomerular filtration rate (eGFR) will no [...] of individuals. Performed By: #### L [id number] ####[facility] ([facility])[address] [place] [address] Glucose [Mass/Vol] 184 mg/dL High 70-100 [facility] Comment on above: Performed By: #### L [id number] ####[facility] ([facility])[address] [place] [address] Potassium [Moles/Vol] 4.3 mmol/L Normal 3.5-5.1 [facility] Comment on above: Performed By: #### L [id number] ####[facility] ([facility])[address] [place] [address] Sodium [Moles/Vol] 137 mmol/L Normal 136-145 [facility] Comment on above: Performed By: #### L [id number] ####[facility] ([facility])[address] [place] [address] Urea nitrogen [Mass/Vol] 21 mg/dL Normal 7-25 [facility] Comment on above: Performed By: #### L [id number] ####[facility] ([facility])[address] [place] [address] UREA NITROGEN/CREATININE (MASS RATIO) IN SER/PLAS 16.7 Normal [facility] Comment on above: Performed By: #### L [id number] ####[facility] ([facility])[address] [place] [address] HPon 01-24-2024 HP History Of Present I [...] [facility] with controlled ventricular response. [...] cardiac remod (more content not included)... Normal [facility] MRSA/MSSA DNA NASALon 2023 MRSA DNA Negative Normal Negative [facility] Comment on above: Order Comment: Testi ng [...] preclude nasal colonization. Performed By: #### L [id number] ####[facility] ([facility])[address] [place] [address] MSSA DNA Negative Normal Negative [facility] Comment on above: Order Comment: Testi ng [...] preclude nasal colonization. Performed By: #### L [id number] ####[facility] ([facility])[address] [place] [address] NURSNOTEon 01-24-2024 NURSNOTE CHG wipes completed. Normal [facility] POCT GLUCOSE METER UNSOLICIT ED RESULTSon 01-24-2024 Glucose [Mass/Vol] 146 mg/dL High 70-105 [facility] Comment on above: Order Comment: Waive d Testing in the ED is performed under the ED CLIA certificate #[id number]. Result Comment: mmah di3 Performed By: #### L [id number] #### [facility] ([facility]) [address] [place] [address] TYPE AND SCREENon 01-24-2024 AB SCREEN Negative Normal [facility] Comment on above: Performed By: #### L [id number] ####[facility], ABO group Nom (Bld) A Normal [facility] Comment on above: Performed By: #### L [id number] ####[facility], RH TYPE IN BLOOD Positive Normal [facility] Comment on above: Performed By: #### L [id number] ####[facility], Basophils Auto (Bld) [#/Vol] on 01-18-2024 Basophils (Bld) [#/Vol] 0.0 10 3/uL 0.0-0.1 [facility] Basophils/100 WBC Auto (Bld) on 01-18-2024 Basophils/100 WBC (Bld) 0.4 % 0.2-2.0 [facility] Eosinophils/100 WBC Auto (Bl d)on 01-18-2024 Eosinophils/100 WBC (Bld) 2.3 % 0.9-7.0 [facility] Erythrocyte distribution wid th Auto (RBC) [Ratio]on 01-18-2024 Erythrocyte distribution width (RBC) [Ratio] 13.6 % 11.0-15.0 [facility] Estimated glomerular filtrat ion rate (GFR) non- Americanon 01-18-2024 GFR/1.73 sq M.predicted among non-blacks MDRD (S/P/Bld) [Vol rate/Area] 48 mL/min/{1.73_m2} >=60 [facility] Hematocrit Auto (Bld) [Volum e fraction]on 01-18-2024 Hematocrit (Bld) [Volume fraction] 37.0 % 42.0-54.0 [facility] Hemoglobin [Mass/volume] in Bloodon 01-18-2024 Hemoglobin (Bld) [Mass/Vol] 11.7 g/dL 14.0-18.0 [facility] Laboratory - Chemistry and C hemistry - challengeon 01-18-2024 Calcium [Mass/Vol] 8.6 mg/dL 8.5-10.1 [facility] Chloride [Moles/Vol] 103 mmol/L 98-107 [facility] CO2 [Moles/Vol] 30.4 mmol/L 21.0-32.0 [facility] Creatinine [Mass/Vol] 1.44 mg/dL 0.70-1.30 [facility] GFR/1.73 sq M.predicted MDRD (S/P/Bld) [Vol rate/Area] 58 mL/min/{1.73_m2} >=60 [facility] Glucose [Mass/Vol] 140 mg/dL 74-106 [facility] Potassium [Moles/Vol] 4.5 mmol/L 3.5-5.1 [facility] Sodium [Moles/Vol] 140 mmol/L 136-145 [facility] Urea nitrogen [Mass/Vol] 17.0 mg/dL 7.0-18.0 [facility] Urea nitrogen/Creatinine [Mass ratio] 11.8 mg/mg [facility] Laboratory - Hematology and Cell countson 01-18-2024 Immature granulocytes/100 WBC (Bld) 0.0 % 0.0-0.5 [facility] Leukocytes [#/volume] correc iván for nucleated erythrocytes in Blood by Automated counon 01-18-2024 WBC corrected for nucl RBC Auto (Bld) [#/Vol] 4.8 10 3/uL 4.0-11.0 [facility] Lymphocytes Auto (Bld) [#/Vo l]on 01-18-2024 Lymphocytes (Bld) [#/Vol] 1.6 10 3/uL 1.2-3.8 [facility] Lymphocytes/100 WBC Auto (Bl d)on 01-18-2024 Lymphocytes/100 WBC (Bld) 33.8 % 20.5-60.0 [facility] MCH Auto (RBC) [Entitic mass ]on 01-18-2024 MCH (RBC) [Entitic mass] 28.3 pg 25.9-34.0 [facility] MCHC Auto (RBC) [Mass/Vol]on 01-18-2024 MCHC (RBC) [Mass/Vol] 31.6 g/dL 29.9-35.2 [facility] MCV Auto (RBC) [Entitic vol] on 01-18-2024 MCV (RBC) [Entitic vol] 89.6 fL 80.0-94.0 [facility] Monocytes Auto (Bld) [#/Vol] on 01-18-2024 Monocytes (Bld) [#/Vol] 0.6 10 3/uL 0.3-0.8 [facility] Monocytes/100 WBC Auto (Bld) on 01-18-2024 Monocytes/100 WBC (Bld) 11.8 % 1.7-12.0 [facility] Neutrophils Auto (Bld) [#/Vo l]on 01-18-2024 Neutrophils (Bld) [#/Vol] 2.5 10 3/uL 1.4-6.5 [facility] Neutrophils/100 WBC Auto (Bl d)on 01-18-2024 Neutrophils/100 WBC (Bld) 51.7 % 43.0-75.0 [facility] No Panel Informationon 01-17 Eosinophils # (Auto) 0.1 10 3/uL 0.0-0.7 [facility] Immature Granulocyte # (Auto) 0.00 10 3/uL 0.00-0.03 [facility] Orders Onlyon 01-18-2024 Orders Only [id number] Amina Goncalves 1945 Date Provider Department Center 01/18/2024 AMY PARRISH [facility] Family History Problem Relation Age of Onset Cancer Mother Heart attack Other Family Status - Relation Status Age at Mother Other Normal [facility] Platelet mean volume Auto (B ld) [Entitic vol]on 01-18-2024 Platelet mean volume (Bld) [Entitic vol] 11.4 fL 9.5-13.5 [facility] Platelets Auto (Bld) [#/Vol] on 01-18-2024 Platelets (Bld) [#/Vol] 186 10 3/uL 150-450 [facility] RBC Auto (Bld) [#/Vol]on RBC (Bld) [#/Vol] 4.13 10 6/uL 4.70-6.10 [facility] Serum or plasma anion gap de terminationon 01-18-2024 Anion gap [Moles/Vol] 11.1 mmol/L [facility] Prep for Procedureon 024 Prep for Procedure [id number] Amina Goncalves 1945 M Date Provider Department Center 11/24/2023 MADISON MOSES Family History Problem Relation Age of Onset Cancer Mother Heart attack Other Family Status - Relation Status Age at Mother Other Normal [facility] Optical coherence tomography study reporton 10-28-2023 [facility] Radiology Study observation (narrative) [facility] Prep for Procedureon 024 Prep for Procedure [id number] IvannaOlivernick e R 1945 M Date Provider Department Center 10/27/2023 MADISON MOSES Family History Problem Relation Age of Onset Cancer Mother Heart attack Other Family Status - Relation Status Age at Mother Other Normal [facility] Orders Onlyon 10-25-2023 Orders Only [id number] Oliver Goncalvesnick e R 1945 M Date Provider Department [place] 10/25/2023 MADISON MOSES Family History Problem Relation Age of Onset Cancer Mother Heart attack Other Family Status - Relation Status Age at Mother Other Normal [facility] Office Visiton 10-24-2023 Follow-up visit [id number] Oliver Goncalvesnick e R 1945 M Date Provider Department Center 10/24/2023 Daniel-MAGGY MURPHY TIMO Santiago Family History Problem Relation Age of Onset Cancer Mother Heart attack Other Family Status - Relation Status Age at Mother Other Level of Service:16206 AR OFFICE/OUTPATIENT ESTABLISHED LOW MDM 20 MIN Normal [facility] Prep for Procedureon 024 Prep for Procedure [id number] Oliver Goncalvesen e R 1945 M Date Provider Department Center 10/17/2023 MADISON MOSES Family History Problem Relation Age of Onset Cancer Mother Heart attack Other Family Status - Relation Status Age at Mother Other Normal [facility] 36on 10-05-2023 37 Patient underwent hi s pre-LAAO JESSICA. He is a candidate for an occlusive device. Spoke to patient regarding next steps. He needs to have shared decision documentation with another physician. He will be seeing his primary meter tester polyphase in a couple weeks. Discussed possible procedure date of 11/01/2023. He states he would consider this and would further discuss with his daughter. Of note, he is planning a trip to [place] for 1 month mid October and he will return the end of November. Normal [facility] Telephoneon 10-05-2023 Telephone [id number] Amina Goncalves 1945 M Date Provider Department Center 10/05/2023 DailyMADISON PAUL [facility] Family History Problem Relation Age of Onset Cancer Mother Heart attack Other Family Status - Relation Status Age at Mother Other Normal [facility] ANESon 09-16-2023 ANES ------ -- Attestation signed [...] 09/16/23 0900 Procedure: TRANSESOPHAGEAL ECHO (JESSICA) Location: [facility] Vascular Lab Clinical information reviewed: Allergies Meds Physical Exam Airway Mallampati: II Cardiovascular Rhythm: regular Rate: normal Dental Pulmonary Breath sounds clear to auscultation Abdominal Anesthesia Plan ASA 3 other (Moderate sedation) Anesthetic plan and risks discussed with patient. Use of blood products discussed with patient who. Plan discussed with fellow and attending. Additional Equipment [facility]s [facility] HP ------ -- Attestation signed by [...] are no changes to the H&P. Normal [facility] NURSNOTEon 09-16-2023 JEAN PIERRE RN educated pt on d/ c instructions. RN encouraged pt to voice any questions or concerns. Pt verbalizes no questions or concerns at this time. Normal [facility] NURSNOTE Bedside swallow stud y completed and passed. Normal [facility] Telephoneon 09-15-2023 Telephone [id number] Amina Goncalves 1945 M Date Provider Department Center 09/15/2023 RUSTY [facility] Family History Problem Relation Age of Onset Cancer Mother Heart attack Other Family Status - Relation Status Age at Mother [facility] Cardiology - [facility] Subjective Tito Goncalves is a 78 y.o. year old male patient being seen to discuss LAAO. He presented to [facility] ED in Jun 2023 for fall. He is anticoagulated with warfarin for afib. Back in December 2022 he had brain bleed s/p fall. Was treated at [facility]. He denies chest pain, SOB, and lightheadedness/syncope. [...] In [facility] with controlled ventricular response. [...] 1 tablet (more content not included)... Normal [facility] Office Visiton 09-06-2023 Follow-up visit [id number] Amina Goncalves 1945 M Date Provider Department Center 09/06/2023 OLIVER RUELAS [facility] Family History Problem Relation Age of Onset Cancer Mother Heart attack Other Family Status - Relation Status Age at Mother Other Level of Service:45607 AR OFFICE/OUTPATIENT ESTABLISHED HIGH MDM 40-54 MIN [facility] Coding Summaryon 07-11-2023 Coding Summary HTMLBase 64 IzwwsgyuDWo9xKs+PGhlYWQ+PE 5NXMRbH31dkFTfiG7iJ0XSPVwN ZhriGPQRNWhAHaNecvLsBM1qyA NjZXJu IC8+SE4jREKfYgqiqGUir8S1zJ E0J10ddl9fQRxflXA3BZNbYnSp wpwfs8saeRb2IKcvVmpyIxJw HJGkeL32EHX8pN39Yb01hBItmB Vxx5iswXr3HlTdVVRyUGR0hDwl FNjwq2WrISWnH79sgYVqm8T9 VXRwdCuemEGiLnMorOR7cO1dHO jxdrpqu6ilhxwaObb8vp51oFKz u4T7sCZ7L9PrznA4HKDczSPy OcurpTYTvG7ncevhf9dhppaqOm GgGIMfWYj2DBv9ZBXqjSrfHtRu HQ60THT6HOPjslGuR2MoLTVc xDtgMuZ8n6O4Ey8KI1NFXcfqV5 VNTUFSWTwvdGQ+ZP61ac33M6Sb IqbyGeb9YBHlNCZ7yYX8uD5h TGOuCUfrk9S3aKP0X1VagySvse 3kt0kvTPOtTQajP86gtOYii6P1 EADpzMM8SZPeaGfzCbBdqM64 Oyc+ZWXqrQprf1AtTrwql3ugv6 zosBu2UgsyGQXkhqSmbUqdETK3 y5WmMu1eGUOmjLO5qSP5qN3u ZfXwZeE3YJnlU165YhEpdNXmOr wbK87bX5LuoOK+JRVcNma4WXPu sTgpOA5pM9LlUVCtpzcwvVVu aNdeVQ2xINOayblbQCVunV4zFV FgB1z7WhNuCcS7GGwnA2PyKSBb svcxPy72hL0eDnDtAxG9NUek I8JqmcI0PPYbaBGgBQizFPF4E1 8wb9W5GUOhLOFmIXW4dHK6aX1d bGlnbjogbGVmdDsgdmVydGlj XMjjBBtiA825WMWlaZacQwDdZH luZyBEYXRlOiAgMTAvMTYvMjAy MzwvdGQ+VYGcWMM3zOihIURc xXJdCVnrVv5spMzkgImuLX0nCR XxahzpBIEeyC6dPKLetEAkfNcq VD9xYTQgkqqsa363BcUcAGT0 SPXipGUyA0JonX7rUhDuBQHrTC AnB7QqtFYfGAxeJ838NZcbLfS1 EQVurlXcY2MmHZGvsSucPoD4 x0B3No1Lg0MhdsvjD3WkcULcXu HgGxplKNh1P8TsBbnqrGY+PC90 EAQqEK51PAt4KGO0nXwjMSiq ZRFgB0VkxH6nMeMtPFQyQEBlVl c+PHRhYmxlIHdpZHRoPScxMDAl JbEkyCgjHJ2nXt4vEDBaXYIz lRqbcMTeOzOht3kpPHOaCYztPY 2deIkdO7BpwDC7LMSbk8a0Gz17 Z75cJ1UioCV+WRWuxQF7yJQ2 oR6gCyGtHtJ4LDrhR457VxYkhL IaLrjbi5tap7ycyKr6MvF4BEGq kgEtoSqwADV2t9KpVf45I78e IHdpZHRoPSIxNSUiIHZhbGlnbj 9tlV4gSn3+CJOmkST0hJW7lO9a KvNbJjG3VSedZ106OnLlsIIq Owtjg9zgs1dhkLp0OnPcKYOcwv AhjErfXJV1d9QiMf15B7PjcCev n2SaXwg1yv63eOMyl5P0gIG3 E0AnQVRnrtpwbFGceJyzAL5cSU DcqheeTZGwcA2lIDRjC3w7QmMq VzT4KWpxO4JemeH6AWOnsLTz SSUhkQIZyS6owigof3gcpouvPp WoJFCiJQc8DKm2MCAflBcnDsHy WLV1YdZ7FDC5oZKelY8qhUda fekbyS6dMvs+OPW0nHSxjJKVVJ 1lOjwvdGQ+QNZoERG1zZqqDCpl KHYddW4sXUUdU8d5WnDmMnM7 BGijB0JfexD8FSZwfJVnETEvfK CAuJ0ebcjfd1rsrggcNdIsNRDg IUk5CFr7JBGgoHcqRsJvMQM3 HlF0YSQ1jIFuuD6jrGyvpxguuP 9wOyc+OosqdVzjHKP4TQw4X2Yh Zig6KUIkvFdtWV9wgOBsZEkc Qp3gpZzffLitJZ6sXLZnjhkcp2 82ZrHyu5ptBXJzuLYuXJpzDCQ3 T65ou6O3RPYfLNDuVJQ4wHU5 sK0hlXacngcaiYYddFgibaAwcN zmTXowRNebP932CSKhpFlvArNq ZKi0Z3TaDzr7ABKvyDwpWW9j aTMaZRsrTs5xsFakgMsvHU6kTH Eoorztd141OxYph4yhBGLwbPLq JNrlBPP8I06kj5W4VFDjSJFn MCK0hAB9wH7tpDjufzqwrFOhdG uuhnEbpOdfKQegAYyvT796FIGf hQouFfQfrCe0G7BuDjg9OHEn ePrsTP5wvEXpVBogAu1bxCdgfF hjJT2dVTFkngzgm154JzSum1cl LVNisWOpVKhvSRF2F81zg7V9 VTGzQMBwDFL3vAT7aV7ehDskcf ogbGVmdDsgdmVydGljYWwtYWxp J069QKPlkTxzNlUsdXpeqbUh EVebMJm5K7GlZroxeZG+PC90YW JuKI68xUSsiFNwk9upnMx7YxNt EJFmIKE9oZeiPCbug7GgQRVb U10xqSDqe7N6HZUseQmicOFfVq UeoKW9lD4pNCvbgvfzj7otkffi Bqsjg1sdid35vO14E17mFQrl JLBcBJOySANnYBUlhXmxcy2stQ 9wIi8+TYAipHL5jEO9aB7yFATe JkE3YVxuU272SjDadFJkPzvy b1hds2ageGh2CcF4LHFojzMtxB raWQM0y8ElDv59G23lMWfpYNWw TVTzTNGbCBYehZvjcj7mkJ1x Ii8+FQUxjIP9kHC9tY5fBaJkJw B5BZmrV574UiCylPYdPrpbE46e V7ImmRE+KVShAlq6WFAepVyq KC2ziDYjIWalEg9mPAO9LtDnTj JtFIduI7QcHPRpxqytplvhyWA8 CEZvNLLxgY31Kr9rkSkkHBQa xTGNuI7fmomyi2iscatxFoZmEM VlRMq9KHd1MZZxtKstKgVhABA6 XoJ7UBZ0vRDqaE4zyIhwzyxt rZ1lK3ZrZCXeyervVi39pT7oYs FqMsA1IPyzBeo+E8AGKIIzRIPZ W7IIQFXXNXMZNKNPVC74QG52 kKOvm2O6yLR8D9WfVHSatthqxs rzsIR1KTVtURZhdD54hPAjKMmg Va6yi9N3a874EBCpQKTxcZ67 Am9nsHgvPEYisTSVbJ3bxdbxv4 nrnioiKfPnTEDqBKt2EBx0FGJi zHsgJmQzSTV1XxE4LUD6uIVe jO1bkFmpwyurjE4nKun+MDQvMj qsYBz6RibywNB+RIQcUKS1pJah RJbgESJbeH5tUCLuN0p0UeQh WgB8UHhvQ8QkSOPqdafdNd29pN 0sUvSiAmQ6UCjvU8IlfpP6XACa cQEhTVqqABJ4L80wr4Z1GUYu GLNlHXM0aPW7kX9ssRmrursmpD ZqrBomstHanDraVEbvOOkrL766 PHEwcSkpKbf9MRhdICBhFR24 EL38fSLqx5G3pCO4Y8CtICLuct nbekghyGD2MMCgBNQjbZ41vGHt QJdkNa4af1P9z368PLMdDKCz oU81Ir4loCgvMVOmkUFNeP1wds drz5xybbgzVmKnUEOjQIs0WIc6 GPVqmIbwAaIyWYC8IvH6PIS2 nSUweJ1tpSsrcpxecB0vDpe+TU FMRTwvdGQ+QHJfONX5kHtyYRrr GHYaeQ9xVQPcO5g1FtZvLsG3 ZGozS2EqIJAflyfvUf20gR7jVl NxUvX9OGxxL1ExxiT6WJOsiJDq URqpZIE3C47qn9E8PXOhJAPy OUX1qBA7rW0ywRsjsniwnLHkuI bewhAczMyfKPldHMtxZ972PVGl mYvzReUwYCKxKO7eoIvgeDE+ UF17gc93G9GpEpzdIya9ENMlUF M3kIC1kR6wJTLwUBieh0P8gTE1 D7OffzDzuw9ym0agNJZuZMjz O10gfOKcy8P8GRIwfXL8YUVjbK iqWwEnnS31Uxa+NDIjiFeow7As Zxoza8pzp0jxjMd0XpQkSPFx htEfoIjmADM9e0XlCz61R20bFE lwFGZnUQHpQPRuTAIpdNhrjb3w xQ6iLk7+JCVlxON4oFE0xB9o QhYzYiW2UGqlA110FoPwePSaXx gds4wxs1cngIi6EpTuOEPsjdHt iIblGIQ8p5TiVy91O8HocRyt m0AiOev6cu78sLVcy5G7nFT8Y8 GdQKEpuyaoyFAvwPcnPU8iRYYq vjspWCWprD0xXRQtA2h4WlWt ElS1VZacR5YabfK6IUYzbVMySQ XagRDHnI1xafayb0fyxfkgVzPp LNOnHWd4NZm2EJIwpNfcEvNu WDM6FgZ9GBL0aCXgrG7jtSvops bdfM2gBwv+CFf6h5kvfUZmSS9w rGW9DO16FU02gXIvq4U9vNB9 W9FsUOFurvpcagepkKH7WEWsIN SbzY86Ut9lvIhfLb2yENNdZTZ8 VNVcvEKwD3AgeM3iRvAdINDi FQXbH6VtqDOnNWveG390FWtjMt N2EQWvldAsV2BgZJUxuVwdTvH3 m8G7Ge9EJI71KC03BM78bGUv o6J2pOI2B5QeNEUobplorimtgB Y7PCMgEIEyaM01Sy9ybPedWi3e FFAeBID2EAEorBDvD5FroT7t RjXdBGGtGABjG5IfzZVtGJquI1 39NClhFkX9FUUxsfFhR6EhEALw sIppIhU9w2T2Vj9XLr07LD30 VV81rYYpx4W5oQE2M2QnHPBijn bbzefhlKZ5MYSwSSAlgZ82Sd3x dLotKo7mBAUkDLY5RALmmALu I9NmqQ8bSkRnPYWiJRWmI1OzoL CpUZgoW358CQapKvS9NIRasmLq A0RrMVBrdHlbCfC9m2H6Vq7L JFtpwjh1T6RoPfpdhAX+PC90YW YlBV45xVOhvWYlg4xwaAs6NcIv VTCyFLY8gKnqCZolw1UgDHVs Y29 (more content not included)... Normal [facility] ED Clinical Summaryon 2022 ED Clinical Summary [facility] - Emergency Department [address] [place] [address] [id number] ED Clinical Summary PERSON INFORMATION Name: TITO GONCALVES Age: 78 Years Sex: MALE : 1945 MRN: Acct#: Visit Reason: Eye Injury; Fall; FALL/LT EYE LAC Arrival: 07/05/2023 16:48:26 Discharge: 07/05/2023 18:40:00 LOS: 000 01:52 Check In: 07/05/2023 16:48:26 Checkout:07/05/2023 18:40:00 Address: [facility] ACCOUNTS PAYABLE OR RECEIVABLE CLERK [facility] [id number] PCP: Augustine Metz PROVIDER INFORMATION Provider Role [...] Patient/family/caregiver verbalizes understanding of instructions given Comment: [facility] ED Patient Education Noteon 07-05-2023 ED Patient Education Note Education Materials [facility] ED Patient Summaryon 023 ED Patient Summary [facility] - Emergency Department [address] [place] [id number] PATIENT DISCHARGE INSTRUCTIONS Patient Information Name: TITO GONCALVES Age: 78 Years Date of : 1945 Reason For Visit: Eye Injury; Fall; FALL/LT EYE LAC Arrival Time: 07/05/2023 16:48:26 Primary Care Physician: Augustine Metz Attending Physician: Colin Song DO Comment: Visit Diagnosis: Diagnoses This [facility] ([id number]) Fall ([id number]) The Pharmacy at [facility] is open Tuesday through Tuesday from 9A [...] drug addiction problems; contact the [facility] 18/04 Crisis Hotline -Text [id number] kh [id number]. If you received any narcotics, sedation, or [...] and treatment you received today in the [facility] Emergency Department were for an urgent problem and are not intended as complete care. It is important for you to follow up with a doctor, nurse practitioner, or physician?s power plant assistant for ongoing care. If your symptoms [...] so we can reach you if necessary. [facility] Emergency Department has provided you with a complete list of medications post discharge. Please inform your ballpoint pen cartridge tester/provider of your visit and for further instruction [...] relieve symptom (more content not included)... Normal [facility] Phone Msgon 02-01-2023 Phone Msg - From: [...] mailed to his address on file. Normal [facility] CBC AUTO DIFFon 2023 BASO # 0.0 103/ul Normal 0.0-0.1 [facility] Comment on above: Performed By: #### C BC #### [facility] [address] [address] [address] Arjun Menjivar Basophils/100 WBC (Bld) 0.4 % Normal 0.2-2.0 [facility] Comment on above: Performed By: #### C BC #### [facility] [address] [place] [address] Dr. Arjun Menjivar EO # 0.1 103/ul Normal 0.0-0.7 [facility] Comment on above: Performed By: #### C BC #### [facility] [address] [place] [address] Dr. Arjun Menjivar Eosinophils/100 WBC (Bld) 1.5 % Normal 0.9-7.0 [facility] Comment on above: Performed By: #### C BC #### [facility] [address] [place] [address] Dr. Arjun Menjivar Erythrocyte distribution width (RBC) [Ratio] 13.7 % Normal 11.0-15.0 [facility] Comment on above: Performed By: #### C BC #### [facility] [address] [place] [address] Dr. Arjun Menjivar Hematocrit (Bld) [Volume fraction] 41.9 % Critically low 42.0-54.0 [facility] Comment on above: Performed By: #### C BC #### [facility] [address] [place] [address] Dr. Arjun Menjivar Hemoglobin (Bld) [Mass/Vol] 13.7 g/dL Critically low 14.0-18.0 [facility] Comment on above: Performed By: #### C BC #### [facility] [address] [place] [address] Dr. Arjun Menjivar IG # 0.02 10e3/ul Normal 0.00-0.03 [facility] Comment on above: Performed By: #### C BC #### [facility] [address] [place] [address] Dr. Arjun Menjivar IG % 0.3 % Normal 0.0-0.5 [facility] Comment on above: Performed By: #### C BC #### [facility] [address] [place] [address] Dr. Arjun Menjivar LYMPH # 1.4 103/ul Normal 1.2-3.8 [facility] Comment on above: Performed By: #### C BC #### [facility] [address] [place] [address] Dr. Arjun Menjivar Lymphocytes/100 WBC (Bld) 16.9 % Critically low 20.5-60.0 [facility] Comment on above: Performed By: #### C BC #### [facility] [address] [place] [address] Dr. Arjun Menjivar MANUAL DIFF REQ NO Normal [facility] Comment on above: Performed By: #### C BC #### [facility] [address] [place] [address] Dr. Arjun Menjivar MCH (RBC) [Entitic mass] 28.8 pg Normal 25.9-34.0 [facility] Comment on above: Performed By: #### C BC #### [facility] [address] [place] [address] Dr. Arjun Menjivar MCHC (RBC) [Mass/Vol] 32.7 g/dL Normal 29.9-35.2 [facility] Comment on above: Performed By: #### C BC #### [facility] [address] [place] [address] Dr. Arjun Menjivar MCV (RBC) [Entitic vol] 88.2 fL Normal 80.0-94.0 [facility] Comment on above: Performed By: #### C BC #### [facility] [address] [place] [address] Dr. Arjun Menjivar MONO # 0.5 103/ul Normal 0.3-0.8 [facility] Comment on above: Performed By: #### C BC #### [facility] [address] [place] [address] Dr. Arjun Menjivar Monocytes/100 WBC (Bld) 5.9 % Normal 1.7-12.0 [facility] Comment on above: Performed By: #### C BC #### [facility] [address] [place] [address] Dr. Arjun Menjivar NEUT # 6.0 103/ul Normal 1.4-6.5 [facility] Comment on above: Performed By: #### C BC #### [facility] [address] [address] [address] Arjun Menjivar Neutrophils/100 WBC (Bld) 75.0 % Normal 43.0-75.0 [facility] Comment on above: Performed By: #### C BC #### [facility] [address] [address] [address] Arjun Menjivar Platelet mean volume (Bld) [Entitic vol] 11.4 fL Normal 9.5-13.5 [facility] Comment on above: Performed By: #### C BC #### [facility] [address] [place] [address] Dr. Arjun Menjivar PLT 169 103/ul Normal 150-450 [facility] Comment on above: Performed By: #### C BC #### [facility] [address] [place] [address] Dr. Arjun Menjivar RBC 4.75 106/ul Normal 4.70-6.10 [facility] Comment on above: Performed By: #### C BC #### [facility] [address] [place] [address] Dr. Arjun Menjivar WBC 8.0 103/ul Normal 4.0-11.0 [facility] Comment on above: Performed By: #### C BC #### [facility] [address] [place] [address] CSPINE WO CONon [...] by: SALINA ESPINOZA Date: 2023 16:[address] [facility] [address] HEAD WO CONon 2023 CT HEAD [...] TOSHIA ANDRES Date: 2023 21:30 Normal [facility] PROF 14(COMP METB)on 023 Albumin [Mass/Vol] 3.7 g/dL Normal 3.4-5.0 [facility] Comment on above: Performed By: #### C MP ####[facility] [address] [address]Dr. Arjun Menjivar Albumin/Globulin [Mass ratio] 1.1 {ratio} Normal [facility] Comment on above: Performed By: #### C MP ####[facility] [address] [address]Dr. Arjun Menjivar ALP [Catalytic activity/Vol] 87 U/L Normal 46-116 [facility] Comment on above: Performed By: #### C MP ####[facility] [address] [address]Dr. Arjun Menjivar ALT [Catalytic activity/Vol] 26 U/L Normal 16-63 [facility] Comment on above: Performed By: #### C MP ####[facility] [address] [address]Dr. Arjun Menjivar Anion gap [Moles/Vol] 9.2 mmol/L Normal [facility] Comment on above: Performed By: #### C MP ####[facility] [address] [address]Dr. Arjun Menjivar AST [Catalytic activity/Vol] 20 U/L Normal 15-37 [facility] Comment on above: Performed By: #### C MP ####[facility] [address] [address]Dr. Arjun Menjivar Bilirubin [Mass/Vol] 0.4 mg/dL Normal 0.2-1.0 [facility] Comment on above: Performed By: #### C MP ####[facility] [address] [place], [place] [address]Dr. Arjun Menjivar Calcium [Mass/Vol] 9.1 mg/dL Normal 8.5-10.1 [facility] Comment on above: Performed By: #### C MP ####[facility] [address] [place], [place] [address]Dr. Arjun Menjivar Chloride [Moles/Vol] 105 mmol/L Normal 98-107 [facility] Comment on above: Performed By: #### C MP ####[facility] [address] [place], [place] [address]Dr. Arjun Menjivar CO2 [Moles/Vol] 28.9 mmol/L Normal 21.0-32.0 [facility] Comment on above: Performed By: #### C MP ####[facility] [address] [place], [place] [address]Dr. Arjun Otto Creatinine [Mass/Vol] 1.23 mg/dL Normal 0.70-1.30 [facility] Comment on above: Performed By: #### C MP ####[facility] [address] [place], [place] [address]Dr. Arjun Otto EGFR-AF GREENLANDIC >60 Normal >=60 [facility] Comment on above: Performed By: #### C MP ####[facility] [address] [place], [place] [address]Dr. Tannashukri Otto EGFR-NON AF GREENLANDIC 57 mL/min/1.73m2 Critically low >=60 [facility] Comment on above: Performed By: #### C MP ####[facility] [address] [place], [place] [address]Dr. Arjun Menjivar Globulin (S) [Mass/Vol] 3.4 g/dL Normal [facility] Comment on above: Performed By: #### C MP ####[facility] [address] [place], [place] [address]Dr. Arjun Menjivar Glucose [Mass/Vol] 126 mg/dL Critically high 74-106 [facility] Comment on above: Performed By: #### C MP ####[facility] [address] [address]Dr. Arjun Menjivar Potassium [Moles/Vol] 4.1 mmol/L Normal 3.5-5.1 [facility] Comment on above: Performed By: #### C MP ####[facility] [address] [address]Dr. Arjun Menjivar Protein [Mass/Vol] 7.1 g/dL Normal 6.4-8.2 [facility] Comment on above: Performed By: #### C MP ####[facility] [address] [place], [place] [address]Dr. Arjun Menjivar Sodium [Moles/Vol] 139 mmol/L Normal 136-145 [facility] Comment on above: Performed By: #### C MP ####[facility] [address] [place], [place] [address]Dr. Arjun Menjivar Urea nitrogen [Mass/Vol] 12.0 mg/dL Normal 7.0-18.0 [facility] Comment on above: Performed By: #### C MP ####[facility] [address] [place], [place] [address]Dr. Arjun Menjivar Urea nitrogen/Creatinine [Mass ratio] 9.8 mg/mg Normal [facility] Comment on above: Performed By: #### C MP ####[facility] [address] [place], [place] [address]Dr. Arjun Menjivar PROTIMEon 2023 INR Coag (PPP) [Relative time] 2.90 {INR} Normal [facility] Comment on above: Performed By: #### P TT, PT ####[facility] [address] [place], [place] [address]Dr. Arjun Menjivar INR GUIDELINES SEE BELOW Normal [facility] Comment on above: Result Comment: PIOTR RED INR: 2.0 - 3.0 CONDITIONS NOT LISTED BELOW 2.5 - 3.5 FOR PROSTHETIC HEART VALVE REPLACEMENT 2.5 - 3.5 RECURRENT THROMBOSIS Performed By: #### P TT, PT ####[facility] [address] [place], [place] [address]Lh. Arjun Menjivar PT Coag (PPP) [Time] 28.9 s Critically high 9.0-11.6 [facility] Comment on above: Performed By: #### P TT, PT ####[facility] [address] [place], [place] [address]Ep. Arjun Menjivar PTTon 2023 aPTT Coag (Bld) [Time] 37.7 s Critically high 22.3-36.2 [facility] Comment on above: Performed By: #### P TT, PT ####[facility] [address] [id number]. Arjun Menjivar XR PELVIS 1_2 VIEWSon 2022 [...] by: LINDA WANG Date: 2023 16:14 Normal [facility] XR ERCP 1 HOUR FLUOROon 10-27 XR ERCP 1 HOUR FLUORO Fluoroscopic guidance for ERCP 11/09/2022 6:30 AM CARDIOVASCULAR SPECIALIST History: DR ORDER;OTHER REASON Tech notes: WHAT [...] by: Radha Haji MD 11/10/2022 8:01 AM CARDIOVASCULAR SPECIALIST Technologist: AG Dictated By: RADHA HAJI MD Signed By: RADHA HAJI MD Signed Out: 11/10/22 09:01:42 Normal [facility] Anesthesiaon 11-09-2022 Anesthesia Patient: YE GONCALVES [...] Postoperative hydration status: euvolemic. Notes: Normothermia. Normal [facility] Anesthesia Patient: YE GONCALVES Age: 77 [...] release 325 mg = 1 caps, ORAL, [id number] trazodone = Desyrel 50 mg, ORAL, BID [...] available Procedure history: Endoscopic Retrograde Cholangiopancreatography (ERCP). (63566) on 11/09/2022 at 77 Years. Endoscopic Retrograde Cholangiopancreatography (ERCP). (90873) on 08/14/2021 at 76 Years. Esophagogastroduodenoscopy , flexible, transoral; with endoscopic ultrasound examination limited to the esophagus, stomach or duodenum, and adjacent structures (98085) on 07/10/2021 at 76 Years. Social History [...] palate, fauces, uvula visible). Assessment and Plan [place] Society [employer] Anesthesiologists (ASA) physical status classification: [...] recognition software. Verbal misinterpretations may occur. Normal [facility] ENDO Initial Data VS HW Prep [...] Bettencourt RN - 11/09/2022 7:09 EST Normal [facility] ENDO Outpatient Admission Da ta-Texton 11-09-2022 ENDO Outpatient Admission Data-Text Endoscopy OP Admission Data Entered On: 11/09/2022 7:12 EST Performed On: 11/09/2022 7:09 EST by Rosalinda [facility] : Ambulatory Mental Status : Alert Oriented : Person, Place, Time Pacemaker/AICD : na Heart : Regular Lungs : Clear Abdomen : Soft Bowel Sounds All Quadrants : Present Prosthesis/Metal : BL knees Glasses : Yes Dentures : Yes Person Driving Pt Home : daughter Amna Surgeon 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 Die 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 Voided : No Pain Level and Site : 0 Kaylyn Bettencourt RN - 11/09/2022 7:09 EST Present on Admission Medical Devices : None Medical Devices for Med Administration : None Kaylyn Bettencourt RN 11/09/2022 7:09 EST [place] Coma Eye Opening Response [place] : Spontaneously Best Verbal Response [place] : Oriented Best Motor Response Vikas : [...] Depression Screening Score 0 : No Kaylyn Bettencourt RN 11/09/2022 7:09 EST Education Barriers to Learning : None evident TeachBack Methodology : TeachBack, Demonstration, Explanation, Printed Material Kaylyn Bettencourt RN 11/09/2022 7:09 EST ENDO Education Activity Expectations : Verbalizes understanding Anesthesia/Sedation : Verbalizes understanding Endo Post Procedure Care : Verbalizes understanding Follow-Up Care/Appointment : Verbalizes understanding Safety : Verbalizes understanding Kaylyn Bettencourt RN 11/09/2022 7:09 EST Normal [facility] Inpatient Patient Summaryon 11-09-2022 Inpatient Patient Summary [facility] Discharge Instructions [address] [place] [address] \.br\(Patient Copy)\.br\ \.br\ \.br\Name: TITO GONCALVES : 1945 \.br\Diagnosis: \.br\ \.br\Allergies: sulfa drugs; penicillins; iodine topical\.br\ \.br\Registration Date: 11/09/22\.br\.br\.br\ \.br\ Current Date Time: 11/09/2022 08:44:54 \.br\ \.br\Address: [address] ACCOUNTS PAYABLE OR RECEIVABLE CLERK CROSSING [facility] [address] \.br\Phone: [phone] \.br\ \.br\Primary Care Provider: \.br\Name: AUGUSTINE METZ\.br\Phone: [phone] \.br\ \.br\Thank you for choosing [facility] for your care. You are very important to us. Our goal is to demonstrate our high quality medical care and provide you with a very good patient experience.\.br\ You may receive a survey about our service. Please take the time to complete the survey and return it so we can continue to enhance our service.\.br\ Thank you again for allowing [facility] to care for your medical needs. If you have any questions about your care or follow up information please contact your doctor.\.br\.br\Follow-up Instructions\.br\.br\.br \With: Address: When: \.br\PUJA HOLBROOK [facility] [address] [address], [address] [place] [address]\.br\ Business (1) Within Call for Appointment \.br\.br\.br\.br\.br\P [...] ient education materials, if any, will display below\.br\[facility] ENDOSCOPY DEPARTMENT\.br\.br\FOLLOW UP CARE\.br\? For biopsy [...] tarry sto (more content not included)... Normal [facility] OR Nursing Record - Endoon 0 11-09-2022 [place] Nursing Record - Endo [place] Nursing Record - Endo Summary Primary Physician: PUJA HOLBROOK MD Finalized Date/Time: 11/09/22 08:27:34 Pt. Name: TITO GONCALVES Frankie/Sex: 1945 Male Med Rec #: [id number] Physician: Financial #: [id number] Pt. Type: A Room/Bed: / Admit/Disch: 11/09/22 06:11:45 - Institution: Case Times - Endo Entry 1 Patient In Room Time 11/09/22 07:43:00 Out Room Time 11/09/22 08:24:00 Anesthesia Facility Times Induction Time 11/09/22 07:48:00 Stop Time 11/09/22 08:15:00 [place] Protocol Yes Completed Surgery Start Time 11/09/22 [...] Solomon RN, Minnie Role Performed Surgeon Primary Skills Trainer Primary Scrub Primary Time In 11/09/22 07:43:00 11/09/22 07:43:00 11/09/22 07:43:00 Time Out 11/09/22 08:24:00 11/09/22 08:24:00 11/09/22 08:24:00 Procedure ERCP(None) ERCP(None) ERCP(None) Last Modified By: Martha Haider RN, RN, Martha Barrera RN 11/09/22 08:21:41 11/09/22 08:21:41 11/09/22 08:21:41 Entry 4 Entry 5 Entry 6 Case Attendee Dena GAVIN, Josselin SPRINGER DO, JYOTI TOPETE Role Performed Skills Trainer Secondary Anesthesiologist Primary Anesthesia Asst/CRIBBER Time In 11/09/22 07:43:00 11/09/22 07:43:00 11/09/22 [...] 08:23 Martha Haider RN 11/09/22 08:27 Normal [facility] Operative Reporton 3 Operative Report Patient: [...] Notes: Follow-up in clinic as scheduled. Normal [facility] Comment on above: Order Comment: Ida sevilla Attachment [id number] can be viewed in source system Missing Attachment [id number] can be viewed in source system Missing Attachment [id number] can be viewed in source system Missing Attachment [id number] can be viewed in source system Missing Attachment [id number] can be viewed in source system Missing Attachment [id number] can be viewed in source system Result Comment: PACU Phase I - Endoon 2022 PACU Phase I - Endo PACU Phase I - Endo Summary Primary Physician: PUJA HOLBROOK MD Finalized Date/Time: 11/09/22 08:55:35 Pt. Name: IVANNATITO/Sex: 1945 Male Med Rec #: [id number] Physician: Financial #: [id number] Pt. Type: A Room/Bed: / Admit/Disch: 11/09/22 06:11:45 - Institution: PACU I Case Times - Endo Entry 1 In PACU I 11/09/22 08:25:00 Ready for Transfer 11/09/22 09:19:00 Last Modified By: Sariah Schreiber RN 11/09/22 08:55:34 Finalized By: Sariah Schreiber RN Document Signatures Signed By: Sariah Schreiber RN 11/09/22 08:55 [facility] POC Glucoseon 11-09-2022 Glucose [Mass/Vol] 131 mg/dL High 72-100 [facility] Comment on above: Performed By: #### 1 [id number] ####[facility] [address] [id number] Medical Director: Dioog Carcamo MD Preop - Endoon 11-09-2022 Preop - Endo Preop - Endo Summary Primary Physician: PUJA HOLBROOK MD Finalized Date/Time: 11/09/22 07:13:53 Pt. Name: TITO GONCALVES Yehuda Alexander./Sex: 1945 Male Med Rec #: [id number] Physician: Financial #: [id number] Pt. Type: A Room/Bed: / Admit/Disch: 11/09/22 06:11:45 - Institution: Preop - Case Times - Endo Entry 1 Patient Arrival Time 11/09/22 06:31:00 Patient Ready for 11/09/22 07:11:00 Surgery Report Given to n/a Last Modified By: Kaylyn Bettencourt RN 11/09/22 07:13:51 Finalized By: Kaylyn Bettencourt RN Document Signatures Signed By: Kaylyn Bettencourt RN 11/09/22 07:13 Normal [facility] Provider Letter - Ambulatory on 11-09-2022 Provider Letter - Ambulatory AUGUSTINE METZ, [address] [place] [address] RE: TITO GONCALVES 11/09/2022 Dear AUGUSTINE METZ [...] - (11/09/2022) GI ERCP with Anesthesia Normal [facility] [place] Protocol/Pre-Proc TimeOut-Texton 11-09-2022 [place] Protocol/Pre-Proc TimeOut-Text [place] Protocol Entered On: 11/09/2022 7:13 EST Performed [...] Haider RN - 11/09/2022 7:48 EST Normal [facility] Phone Msgon 11-08-2022 Phone Msg - [...] Pt was asked to speak with his meter tester polyphase'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 From: Caren Carvalho RN To: Blanca Bazzi; Fela Alexandre; Sent: 10/28/2022 09:50:53 EST Subject: RE: Cardiac Clearance Caller Name: IVANNA TITO Yehuda; Caller Number: H He sees Dr. Metz sent LM for pt-Per Dr. Metz, pt can be off his Coumadin 5 days prior to his procedure. Normal [facility] AMB GI Physician Progress No irma 10-26-2022 AMB GI Physician Progress Note Chief Complaint Abdominal pain History of Present Illness 77-year-old male with recurrent history of choledocholithiasis last ERCP was done a year ago in [place] Patient had admission in hospital in [place] with fever and chills Patient has had [...] Est Pt Mod MDM / 30-39 min 51888, 10/26/2022 16:13:00 EST, Abdominal pain / Pancreatic cyst MR CP, 10/26/2022, Routine, PAIN, Abdominal pain / Pancreatic cyst 2. Pancreatic cyst K86.2 Pancreatic cyst stable very low CEA levels suggestive of simple serous cyst versus inflammatory cyst. Asymptomatic Ordered: AMB Follow - Up Appt Amb, 10/26/2022 16:13:00 EST, 4 weeks AMB Office/Outpt Est Pt Mod MDM / 30-39 min 98380, 10/26/2022 16:13:00 EST, Abdominal pain / Pancreatic [...] extended release, 325 mg= 1 caps, ORAL, [id number] trazodone = Desyrel, 50 mg, ORAL, BID [...] Care Team Primary Care Physician AUGUSTINE METZ [phone] Attending Physician PUJA HOLBROOK MD [phone] . Health Maintenance Pending (in the next year) There are no current recommendations pending Satisfied (in the past 1 year) There are no satisfied recommendations within the defined date range Normal [facility] Comprehensive Intake - Texto n 10-26-2022 [...] in, 183 cm) Body Mass Index Measured Mauritian : 18.85 kg/m2 BSA Mauritian : 1.79 m2 Ht/Wt Measurement Refused by [...] risk situation (congregated living, hemodialysis, infusion clinic, long term, assisted living, assisted, homeless assisted, etc.)? : No Abdulaziz LISA Lori - [...] Abnormal LFTs (liver function tests) (SNOMED CT :467899002 ) Name of Problem: Abnormal LFTs (liver function tests) ; Recorder: Blanca Bazzi; Confirmation: Confirmed ; Classification: Medical ; Code: [id number] ; Contributor System: [employer] ; Last Updated: 07/01/2021 12:43 EDT ; Life Cycle Date: 07/01/2021 ; Life Cycle Status: Active ; Vocabulary: SNOMED CT Arthritis (SNOMED CT :7769891 ) Name of Problem: Arthritis ; Recorder: Blanca Bazzi; Confirmation: Confirmed ; Classification: Medical ; Code: [id number] ; Contributor System: [employer] ; Last Updated: 07/01/2021 12:43 EDT ; Life Cycle Date: 07/01/2021 ; Life Cycle Status: Active ; Vocabulary: SNOMED CT Choledocholithiasis (SNOMED CT :395160209 ) Name of Problem: Choledocholithiasis ; Recorder: PUJA HOLBROOK MD; Confirmation: Confirmed ; Classification: Medical ; Code: 870285704 ; Contributor System: [employer] ; Last Updated: 07/01/2021 13:27 EDT ; Life Cycle Date: 07/01/2021 ; Life Cycle Status: Active ; Responsible Provider: PUJA HOLBROOK MD; Vocabulary: SNOMED CT Diabetes (SNOMED CT :849405705 ) Name of Problem: Diabetes ; Recorder: Blanca Bazzi; Confirmation: Confirmed ; Classification: Medical ; Code: [id number] ; Contributor System: PowerChart ; Last Updated: 07/01/2021 12:43 EDT ; Life Cycle Date: 07/01/2021 ; Life Cycle Status: Active ; Vocabulary: SNOMED CT Gallbladder disease (SNOMED CT :981462798 ) Name of Problem: Gallbladder disease ; Recorder: Blanca Bazzi; Confirmation: Confirmed ; Classification: Medical ; Code: [id number] ; Contributor System: PowerChart ; Last Updated: 07/01/2021 12:44 EDT ; Life Cycle Date: 07/01/2021 ; Life Cycle Status: Active ; Vocabulary: SNOMED CT GERD (gastroesophageal reflux disease) (SNOMED CT :822243279 ) Name of Problem: GERD (gastroesophageal reflux disease) ; Recorder: Blanca Bazzi; Confirmation: Confirmed ; Classification: Medical ; Code: [id number] ; Contributor System: PowerChart ; Last Updated: 07/01/2021 12:44 EDT ; Life Cycle Date: 07/01/2021 ; Life Cycle Status: Active ; Vocabulary: SNOMED CT Hypertension (SNOMED CT :6041730986 ) Name of Problem: Hypertension ; Recorder: Blanca Bazzi; Confirmation: Confirmed ; Classification: Medical ; Code: [id number] ; Contributor System: PowerChart ; Last Updated: 07/01/2021 12:44 EDT ; Life Cycle Date: 07/01/2021 ; Life Cycle Status: Active ; Vocabulary: SNOMED CT Irregular heart rhythm (SNOMED CT :520249426 ) Name of Problem: Irregular heart rhythm ; Recorder: Blanca Bazzi; Confirmation: Confirmed ; Classification: Medical (more content not included)... Normal [facility] Provider Letter - Ambulatory on 10-26-2022 Provider Letter - Ambulatory AUGUSTINE METZ, [address] [place] [address] RE: TITO GONCALVES 10/26/2022 Dear AUGUSTINE METZ [...] - (10/26/2022) *.AMB Office Visit Note Normal [facility] Phone Msgon 10-22-2022 Phone Msg - From: Lise Lawrence MA To: Caren Carvalho RN; PUJA HOLBROOK MD; Sent: 10/22/2022 09:40:42 EST Subject: symptoms/appointment Caller Name: TITO GONCALVES; Caller Number: H Tito Berg daughter, Amna Sousa called. She is asking if he can [...] other dilemma is he is leaving for [place] on 11/13 for 6 weeks. From: Caren [...] him until December. He has moved to [facility] and Tito would be considered a new patient. His daughter did not feel he was acutely ill and that he can wait for the appointment next Tuesday. Normal [facility] GLYCOHEMOGLOBIN A1Con 2022 ADA RECOMMENDATION SEE BELOW Normal [facility] Comment on above: Result Comment: ADA RECOMMENDED LIMIT 4.0 - 6.0 ADA THERAPEUTIC TARGET < 7.0 ACTION SUGGESTED > 7.0 Performed By: #### A 1C ####[facility] [id number] [place] [id number]. Arjun Menjivar Glucose [Mass/Vol] 163 mg/dL Normal [facility] Comment on above: Performed By: #### A 1C ####[facility] [address] [place], [place] [address]Ef. Arjun Menjivar HbA1c (Bld) [Mass fraction] 7.3 % Critically high 4.5-6.2 [facility] Comment on above: Performed By: #### A 1C ####[facility] [address] [place], [place] [address]Yv. Arjun Menjivar Dermatopathologyon 2 Dermatopathology Name: TITO GONCALVES Pathologist: KRISTEN OCONNOR MD Date of Procedure: 09/07/2022 Date Received: 09/07/2022 Date Reported 09/08/2022 Submitting Physician: MACARIO BUI MD, Location: [facility] Copy To/Referring/Attending: MD SABRA SIMS FINAL DIAGNOSIS 3 SLIDES, [facility] #[id number] (BX: 08/03/2022) A. 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 B. SKIN, RIGHT SCIENTOLOGIST, SHAVE BIOPSY: MELANOMA IN SITU, PRESENT ON [...] M.D. CANCER SUMMARY REPORT A. 3 SLIDES, [facility] #[id number] (BX: 08/03/2022): SPECIMEN Procedure: Biopsy, shave Specimen Laterality: Right TUMOR Tumor Site: Skin of other and unspecified parts of face: Right adventism Histologic Type: Melanoma in situ, lentigo maligna [...] ADDITIONAL FINDINGS Additional Findings: None ADDITIONAL TESTING Yield Analyst Blocks: Normal Block: None Tumor Block: A1 Electronically Signed Out By KRISTEN OCONNOR MD/[facility] Diagnostic interpretation performed at [facility] [address] [facility], [facility] [address] Microscopic Description: A. Microscopic examination reveals nests [...] OTHER Specimens Submitted As: A: 3 SLIDES, [facility] #[id number] (BX: 08/03/2022) Gross Description: Received for consultation from [facility] are three slides labeled [id number] (BX: 08/03/2022) along with the corresponding pathology report. Slide/Block Description 3 SLIDES, [id number]. Keep Slides: N Slides Returned: N Personal Consult: N Normal [facility] Comment on above: Performed By: #### D #### Dermatopathology GLYCOHEMOGLOBIN A1Con 2021 ADA RECOMMENDATION SEE BELOW Normal [facility] Comment on above: Result Comment: ADA RECOMMENDED LIMIT 4.0 - 6.0 ADA THERAPEUTIC TARGET < 7.0 ACTION SUGGESTED > 7.0 Performed By: #### A 1C ####[facility] [id number] [place] [id number]. Arjun Menjivar Glucose [Mass/Vol] 151 mg/dL Normal [facility] Comment on above: Performed By: #### A 1C ####[facility] [address] [place] [id number]. Arjun Menjivar HbA1c (Bld) [Mass fraction] 6.9 % Critically high 4.5-6.2 [facility] Comment on above: Performed By: #### A 1C ####[facility] [address] [place], [place] [address]Ws. Arjun Menjivar XR ESOPHAGUSon 06-28-2022 XR ESOPHAGUS [...] CARMEN PABLO Date: 2022-06-28 14:07 Normal [facility] XR MODIFIED BARIUM SWALLOWon 06-15-2022 [...] by: SANTOS DC Date: 2022-06-15 11:11 Normal [facility] Ambulatory Visit Summaryon 0 05-03-2022 Ambulatory Visit [...] [facility] [address], [place] [phone] Medications What How Much When Instructions Unchanged [...] the si (more content not included)... Normal [facility] Patient Educationon 05-03-20 Patient Education Urology [...] Follow these instructions at home: ? Take abfd-vci-hadeisc and prescription medicines only as told by [...] You d (more content not included)... Normal [facility] Urology Office/Clinic Noteon 05-03-2022 Urology Office/Clinic Note Chief Complaint 1 year with KUB HPI Staff Tito is here today for a 1 year follow up with a KUB. KUB done on 04/26/22 at [facility] impression showed no appreciable urinary tract [...] Urology [address], [place] [phone] Additional Instructions: PRN Patient Education Benign Prostatic [...] in lifetim (more content not included)... Normal [facility] Comment on above: Result Comment: Elec tronically Signed By: Mc ALMONTE MD\.br\Date and Time Signed: 05/03/22 09:26 EDT\.br\Electronically Co-Signed By: Jerri Lyles\.br\Date and Time Co-Signed: 05/03/22 09:24 EDT RAD - MISCon 04-28-2022 RAD - MISC [id number] Normal [facility] XR KUB 1 VIEWon 04-27-2022 XR [...] SANTOS DC Date: 2022-04-27 06:18 Normal [facility] GLYCOHEMOGLOBIN A1Con 2021 ADA RECOMMENDATION SEE BELOW Normal [facility] Comment on above: Result Comment: ADA RECOMMENDED LIMIT 4.0 - 6.0 ADA THERAPEUTIC TARGET < 7.0 ACTION SUGGESTED > 7.0 Performed By: #### A 1C #### [facility] [address] [place] [address] Dr. Arjun Menjivar Glucose [Mass/Vol] 126 mg/dL Normal [facility] Comment on above: Performed By: #### A 1C #### [facility] [address] [place] [address] [address] Arjun Menjivar HbA1c (Bld) [Mass fraction] 6.0 % Normal 4.5-6.2 [facility] Comment on above: Performed By: #### A 1C #### [facility] [address] [place] [address] [address] Arjun Menjivar IRON AND TIBCon 04-07-2022 % SATURATION 25.4 % Normal [facility] Comment on above: Performed By: #### F ETIBC, B12FOL #### [facility] [address] [place] [address] [address] Arjun Menjivar Iron [Mass/Vol] 62.0 ug/dL Critically low 65.0-175.0 [facility] Comment on above: Performed By: #### F ETIBC, B12FOL #### [facility] [address] [place] [address] [address] Arjun Menjivar TIBC DIRECT 244.0 ug/dL Critically low 250.0-450.0 [facility] Comment on above: Performed By: #### F ETIBC, B12FOL #### [facility] [address] [place] [address] [address] Arjun Menjivar VIT B12 AND FOLATEon 022 Cobalamin (Vitamin B12) [Mass/Vol] 597.0 pg/mL Normal 193.0-986.0 [facility] Comment on above: Performed By: #### F ETIBC, B12FOL #### [facility] [address] [place] [address] [address] Arjun Menjivar FOLATE 21.50 ng/mL Normal 8.60-58.90 [facility] Comment on above: Performed By: #### F ETIBC, B12FOL #### [facility] [address] [place] [address] [address] Arjun Menjivar CBCon 03-16-2022 ABSOLUTE BAS 0.0 10*3/uL Normal 0.0-0.2 [facility] Comment on above: Result Comment: Test ing performed at [place] [address] Performed By: #### R ENF, ACBC, PT #### [place] [address] ABSOLUTE EOS 0.00 10*3/uL Normal 0.0-0.7 [facility] Comment on above: Performed By: #### R ENF, ACBC, PT #### [place] [address] ABSOLUTE NEUTROPHIL COUNT 8.5 10*3/uL High 1.4-6.5 [facility] Comment on above: Performed By: #### R ENF, ACBC, PT #### Testing performed at [address] [address] Basophils/100 WBC (Bld) 0.1 % Normal 0.0-2.0 [facility] Comment on above: Performed By: #### HUGH FARIA, PT #### Testing performed at [address] [address] DTYPE AUT[address]FF Normal [facility] Comment on above: Performed By: #### HUGH FARIA, PT #### Testing performed at [address] [address] Eosinophils/100 WBC (Bld) 0.0 % Normal 0.0-11.0 [facility] Comment on above: Performed By: #### HUGH FARIA, PT #### Testing performed at [address] [address] Lymphocytes (Bld) [#/Vol] 0.60 10*3/uL Low 1.2-3.4 [facility] Comment on above: Performed By: #### HUGH FARIA, PT #### Testing performed at [address] [address] Lymphocytes/100 WBC (Bld) 6.4 % Low 20.0-55.0 [facility] Comment on above: Performed By: #### HUGH FARIA, PT #### Testing performed at [address] [address] Monocytes (Bld) [#/Vol] 0.4 10*3/uL Normal 0.0-0.7 [facility] Comment on above: Performed By: #### HUGH FARIA, PT #### Testing performed at [address] [address] Monocytes/100 WBC (Bld) 4.1 % Normal 0.0-10.0 [facility] Comment on above: Performed By: #### HUGH FARIA, PT #### Testing performed at [address] [address] Neutrophils/100 WBC (Bld) 89.4 % High 37.0-75.0 [facility] Comment on above: Performed By: #### R HUGH MAGDALENO, PT #### [place] [address] Erythrocyte distribution width (RBC) [Ratio] 17.0 % High 11.5-14.5 [facility] Comment on above: Performed By: #### HUGH FARIA, PT #### [place] [address] Hematocrit (Bld) [Volume fraction] 33.9 % Low 42.0-52.0 [facility] Comment on above: Performed By: #### HUGH FARIA, PT #### [place] [address] Hemoglobin (Bld) [Mass/Vol] 11.7 g/dL Low 14.0-18.0 [facility] Comment on above: Performed By: #### HUGH FARIA, PT #### [place] [address] MCH (RBC) [Entitic mass] 30.0 pg Normal 26.0-35.0 [facility] Comment on above: Performed By: #### HUGH FARIA, PT #### [place] [address] MCHC (RBC) [Mass/Vol] 34.5 g/dL Normal 27.0-37.0 [facility] Comment on above: Performed By: #### HUGH FARIA, PT #### [place] [address] MCV (RBC) [Entitic vol] 87.2 fL Normal 80.0-100.0 [facility] Comment on above: Performed By: #### HUGH FARIA, PT #### [place] [address] Platelet mean volume (Bld) [Entitic vol] 9.2 fL Normal 7.4-11.0 [facility] Comment on above: Performed By: #### R RASTA ACBC, PT #### Testing performed at [address] [address] Platelets (Bld) [#/Vol] 154 10*3/uL Normal 130.0-400.0 [facility] Comment on above: Performed By: #### R ENF ACBC, PT #### Testing performed at [place] [id number] RBC (Bld) [#/Vol] 3.89 10*6/uL Low 4.0-6.1 [facility] Comment on above: Performed By: #### R ENF ACBC, PT #### Testing performed at [place] [id number] WBC (Bld) [#/Vol] 9.5 10*3/uL Normal 3.6-11.0 [facility] Comment on above: Performed By: #### R ENF ACBC, PT #### Testing performed at [place] [id number] CBC, EDIF, PLATELETon 2021 ABSOLUTE BASOPHIL COUNT 0.0 10*3/uL 0.0 - 0.2 10*3/uL [facility] Comment on above: Testing performed at [place], [place] [address] Basophils/100 WBC (Bld) 0.1 % 0.0 - 2.0 % [facility] Differential cell count method Nom (Bld) AUTO DIFF % [facility] Eosinophils (Bld) [#/Vol] 0.00 10*3/uL 0.0 - 0.7 10*3/uL [facility] Eosinophils/100 WBC (Bld) 0.0 % 0.0 - 11.0 % [facility] Erythrocyte distribution width (RBC) [Ratio] 17.0 % High 11.5 - 14.5 % [facility] Hematocrit (Bld) [Volume fraction] 33.9 % Low 42.0 - 52.0 % [facility] Hemoglobin (Bld) [Mass/Vol] 11.7 g/dL Low [facility] Interpretation and review of laboratory results Abnormal [facility] Lymphocytes (Bld) [#/Vol] 0.60 10*3/uL Low 1.2 - 3.4 10*3/uL [facility] Lymphocytes/100 WBC (Bld) 6.4 % Low 20.0 - 55.0 % [facility] MCH (RBC) [Entitic mass] 30.0 pg 26.0 - 35.0 PG [facility] MCHC (RBC) [Mass/Vol] 34.5 g/dL [facility] MCV (RBC) [Entitic vol] 87.2 fL [facility] Monocytes (Bld) [#/Vol] 0.4 10*3/uL 0.0 - 0.7 10*3/uL [facility] Monocytes/100 WBC (Bld) 4.1 % 0.0 - 10.0 % [facility] Neutrophils (Bld) [#/Vol] 8.5 10*3/uL High 1.4 - 6.5 10*3/uL [facility] Neutrophils/100 WBC (Bld) 89.4 % High 37.0 - 75.0 % [facility] Platelet mean volume (Bld) [Entitic vol] 9.2 fL [facility] Platelets (Bld) [#/Vol] 154 10*3/uL 130.0 - 400.0 10*3/uL [facility] RBC (Bld) [#/Vol] 3.89 10*6/uL Low 4.0 - 6.1 10*6/uL [facility] WBC (Bld) [#/Vol] 9.5 10*3/uL 3.6 - 11.0 10*3/uL [facility] PROTIMEon 03-16-2022 INR Coag (PPP) [Relative time] 1.37 {INR} High 0.85-1.10 [facility] Comment on above: Result Comment: 2.0-3.0 THERAPEUTIC RANGE 2.5-3.5 MECHANICAL VALVE RANGE Testing performed at [place] [address] Performed By: #### R ENF, ACBC, PT #### [place] [address] PT Coag (PPP) [Time] 16.9 s High 11.8-14.4 [facility] Comment on above: Performed By: #### R ENF, ACBC, PT #### Testing performed at [facility] [address] [place] [address] PROTIME-INRon 03-16-2022 INR Coag (PPP) [Relative time] 1.37 {INR} High [facility] Comment on above: 2.0-3.0 THERAPEUTIC RANGE 2.5-3.5 MECHANICAL VALVE RANGE Testing performed at [place] [address] Interpretation and review of laboratory results Abnormal [facility] PT Coag (PPP) [Time] 16.9 s [facility] RENAL FUNCTION PANELon 03-16 Albumin [Mass/Vol] 3.3 G/dl Low 3.5 - 5.0 G/dl [facility] Calcium [Mass/Vol] 7.9 mg/dL Low [facility] Chloride [Moles/Vol] 106 mmol/L [facility] Comment on above: Please note: Triglyc eride levels of 600mg/dL or higher may positively bias chloride results by approximately 2.1 mmol CO2 [Moles/Vol] 23 mmol/L [facility] Creatinine [Mass/Vol] 1.20 mg/dL [facility] GFR COMMENT Average GFR for 70+ years old = 75. [facility] Comment on above: Chronic Kidney disea se, GFR = <60. Kidney failure, GFR = <15. The GFR estimate is not adjusted for extreme body surface area or acute process, nor has it been validated for women or ethnic groups other than and . Testing performed at [place] [id number] GFR/1.73 sq M.predicted among blacks MDRD (S/P/Bld) [Vol rate/Area] 76 mL/min/{1.73_m2} ml/min/1.73 sq.m [facility] GFR/1.73 sq M.predicted among non-blacks MDRD (S/P/Bld) [Vol rate/Area] 63 mL/min/{1.73_m2} ml/min/1.73 sq.m [facility] [place] [facility] Glucose post fast [Mass/Vol] 230 mg/dL [facility] Comment on above: NORMAL <100 mg/dL PREDIABETES 101-126 mg/dL DIABETES 126 mg/dL or higher Interpretation and review of laboratory results Abnormal [facility] Phosphate [Mass/Vol] 2.9 mg/dL [facility] Potassium [Moles/Vol] 4.5 mmol/L [facility] Sodium [Moles/Vol] 136 mmol/L Low [facility] Urea nitrogen [Mass/Vol] 22 mg/dL High [facility] RENAL PANEL,FASTINGon 2021 ALBUMIN 3.3 G/dl Low 3.5-5.0 [facility] Comment on above: Performed By: #### R HUGH MAGDALENO, PT #### [place] [address] Calcium [Mass/Vol] 7.9 mg/dL Low 8.4-10.2 [facility] Comment on above: Performed By: #### HUGH FARIA, PT #### [place] [address] Chloride [Moles/Vol] 106 mmol/L Normal 98-107 [facility] Comment on above: Result Comment: Alla noland note: Triglyceride levels of 600mg/dL or higher may positively bias chloride results by approximately 2.1 mmol Performed By: #### HUGH FARIA, PT #### [place] [address] CO2 [Moles/Vol] 23 mmol/L Normal 22-30 [facility] Comment on above: Performed By: #### HUGH FARIA, PT #### [place] [address] Creatinine [Mass/Vol] 1.20 mg/dL Normal 0.7-1.2 [facility] Comment on above: Performed By: #### HUGH FARIA, PT #### [place] [address] EST. GFR, 76 ml/min/1.73sq.m Normal [facility] Comment on above: Performed By: #### HUGH FARIA, PT #### [place] [address] EST. GFR,Non 63 ml/min/1.73sq.m Normal [facility] Comment on above: Performed By: #### HUGH FARIA, PT #### [place] [address] GFR Information Average GFR for 70+ years old = 75. Normal [facility] Comment on above: Result Comment: Resourcing Advisor david Kidney disease, GFR = <60. Kidney failure, GFR = <15. The GFR estimate is not adjusted for extreme body surface area or acute process, nor has it been validated for women or ethnic groups other than and . Testing performed at [place] [address] Performed By: #### HUGH FARIA, PT #### [place] [address] Glucose [Mass/Vol] 230 mg/dL High 70-100 [facility] Comment on above: Result Comment: NORMAL <100 mg/dL PREDIABETES 101-126 mg/dL DIABETES 126 mg/dL or higher Performed By: #### HUGH FARIA, PT #### [place] [address] PHOSPHOROUS 2.9 MG/DL Normal 2.5-4.5 [facility] Comment on above: Performed By: #### HUGH FARIA, PT #### [place] [address] Potassium [Moles/Vol] 4.5 mmol/L Normal 3.5-5.1 [facility] Comment on above: Performed By: #### HUGH FARIA, PT #### [place] [address] Sodium [Moles/Vol] 136 mmol/L Low 137-145 [facility] Comment on above: Performed By: #### HUGH FARIA, PT #### [place] [address] Urea nitrogen [Mass/Vol] 22 mg/dL High 04-14 [facility] Comment on above: Performed By: #### R ENF, ACBC, PT #### [place] [address] GLUCOSE (POC DEVICE)on 03-15 GLUCOSE, POINT OF CARE 118 High [facility] Interpretation and review of laboratory results Abnormal [facility] Operator [facility] Comment on above: Testing performed at [address] MRSA SCREENon 03-15-2022 MRSA DNA HERIBERTO+probe Ql (Unsp spec) Not detected Normal NOT DETECTED [facility] Comment on above: Performed By: #### M RSAST #### [place] [address] STAPH AUREUS SCREEN Not detected Normal NOT DETECTED [facility] Comment on above: Result Comment: Test ing performed at [place] [address] Performed By: #### M RSAST #### [place] [address] NOVEL CORONAVIRUSon 03-15-20 22 NARRATIVE This test was perfor med using isothermal HERIBERTO and has been approved as Emergency Use Authorization (EUA) for the qualitative detection [id number] [facility] Comment on above: Result Comment: Test ing performed at [place] [address] Performed By: #### C OVID #### [place] [address] SARS-CoV-2 (COVID-19) RNA HERIBERTO+probe Ql (Unsp spec) Not detected Normal NOT DETECTED [facility] Comment on above: Result Comment: Nega tive [...] #### C OVID #### [place] [address] NOVEL CORONAVIRUS LAB 1 - NA SOPHARYNGEALon 03-15-2022 NARRATIVE -1 This test was perfor med using isothermal HERIBERTO and has been approved as Emergency Use Authorization (EUA) for the qualitative detection suZSEJ-[id number] nucleic acid. [facility] Comment on above: Testing performed at [place] [address] SARS-CoV-2 (COVID-19) RNA HERIBERTO+probe Ql (Unsp spec) Not detected NOT DETECTED [facility] Comment on above: Negative results do [...] patient is critically ill or clinically deteriorating. [facility] POCT GLUCOSEon 03-15-2022 Glucose [Mass/Vol] 118 mg/dL High 70-100 [facility] Comment on above: Performed By: #### P OCGLU #### [place] [address] [address] Normal [facility] Comment on above: Result Comment: Test ing performed at [place] [address] Performed By: #### P OCGLU #### [place] [address] PROTIMEon 03-15-2022 INR Coag (PPP) [Relative time] 1.36 {INR} High 0.85-1.10 [facility] Comment on above: Result Comment: 2.0-3.0 THERAPEUTIC RANGE 2.5-3.5 MECHANICAL VALVE RANGE Testing performed at [place] [address] Performed By: #### P T #### [place] [address] PT Coag (PPP) [Time] 16.8 s High 11.8-14.4 [facility] Comment on above: Performed By: #### P T #### [place] [address] PROTIME-INRon 03-15-2022 INR Coag (PPP) [Relative time] 1.36 {INR} High [facility] Comment on above: 2.0-3.0 THERAPEUTIC RANGE 2.5-3.5 MECHANICAL VALVE RANGE Testing performed at [place] [address] Interpretation and review of laboratory results Abnormal [facility] PT Coag (PPP) [Time] 16.8 s High [facility] PTTon 03-15-2022 aPTT Coag (Bld) [Time] 28.7 s Normal 22.4-34.7 [facility] Comment on above: Result Comment: CARDIAC AND PE/DVT THERAPUTIC RANGE 69-97 SEC VASCULAR/THREATENED LIMB THERAPUTIC RANGE 80-112 SEC Testing performed at [place] [address] Performed By: #### P TT #### [place] [address] aPTT Coag (Bld) [Time] 28.7 s [facility] Comment on above: CARDIAC AND PE/DVT THERAPUTIC RANGE 69-97 SEC VASCULAR/THREATENED LIMB THERAPUTIC RANGE 80-112 SEC Testing performed at [address] SCREEN: MRSA ONLY, NARES (IS OLATION SCREEN)on 03-15-2022 MRSA isol Org specific cx Ql (Nose) Not detected NOT DETECTED [facility] STAPHYOCOCCUS AUREUS BY PCR Not detected NOT DETECTED [facility] Comment on above: Testing performed at [address] [facility] TYPE AND SCREEN CROSSMATCH C ONVERTIBLEon 03-15-2022 TYPE AND SCREEN CROSSMATCH CONVERTIBLE WORKUP EXPIRES 03/18/2022,2359 ABO/RH(D) A POSITIVE ANTIBODY SCREEN NEGATIVE ARM BAND NUMBER [id number] Testing performed at [place], [place] [address] [facility] Comment on above: Performed By: #### T SCC #### Testing performed at [facility] [address] [place] [address] TYPE AND SCREEN - POSSIBLE T RANSFUSIONon 03-15-2022 ABO and Rh group Nom (Bld ) Positive [facility] ARM BAND NUMBER [id number] [facility] ARM BAND NUMBER Testing performed at [address] Blood group antibody screen Ql Negative [facility] EXPIRATION DATE 03/18/2022,2358 [facility] XR KNEE RIGHT 2 VIEWSon 02-25 XR KNEE RIGHT 2 VIEWS EXAM: XR KNEE RIGHT 2 VIEWS HISTORY: COMPARISON: FINDINGS: Joint replacement is seen with overall preservation of normal alignment. No abnormal lucency is seen around the hardware. IMPRESSION: Joint replacement without hardware complication Normal [facility] XR Knee - right 2 Viewson IMPRESSION: [...] IMPRESSION IMPRESSION: Joint replacement without hardware complication [facility] Radiology Study observation (narrative) [facility] XR Knee - right 2 ViewsOrder ed By: Abel Resendiz on 03-15-2022 [facility] Work Phone: Operative Reporton 9 Operative Report MR#: [id number] [facility] Pt. Name: Tito Goncalves Room #: CC [...] The patient was brought to the laboratory inspector and a transesophageal echocardiogram was performed under [...] Flores MD Date Trans: 06/14/2019 12:23 A/asad [id number] cc: Augustine Metz D.O. [address] [place] [id number] Ryan Cardenas M.D. [facility] [address] [facility] Health Services Clinic Repor ton 06-21-2017 Health Services Clinic Report Type: OrthopedicDictated by: To be signed by: Transcribed by: Transcribed D/ Dictation D/ Report: DATE OF VISIT: 06/08/2017 Re: Tito Michjamse HISTORY OF PRESENT ILLNESS: Patient is here today for followup. He is an established patient of [facility]. He is status post revision arthroplasty for [...] questions or concerns in the meantime. Normal [facility] Vital Signs Date Time Vital Sign Value Performing Clinician Facility 02-27-2024 [id number] Body height 172.72 cm DO Augustine Ball Work Phone: [facility] 02-27-2024 09:21-0400 Body mass index (BMI) [Ratio] 36.7 kg/m2 DO Augustine Ball Work Phone: [facility] 02-27-2024 09:21-0400 Body weight 109.48 kg DO Augustine Ball Work Phone: [facility] 02-27-2024 09:21-0400 Diastolic blood pressure 72 mm[Hg] DO Augustine Ball Work Phone: [facility] 02-27-2024 09:21-0400 Heart rate 60 /min DO Augustine Ball Work Phone: [facility] 02-27-2024 09:21-0400 Respiratory rate 12 /min DO Augustine Ball Work Phone: [facility] 02-27-2024 09:21-0400 Systolic blood pressure 152 mm[Hg] DO Augustine Ball Work Phone: [facility] 02-24-2024 17:02-0400 Diastolic blood pressure 70 mm[Hg] DO Augustine Ball Work Phone: [facility] 02-24-2024 17:02-0400 Heart rate 55 /min DO Augustine Ball Work Phone: [facility] 02-24-2024 17:02-0400 Respiratory rate 16 /min DO Augustine Ball Work Phone: [facility] 02-24-2024 17:02-0400 SaO2% (BldA) [Mass fraction] 97 % DO Augustine Ball Work Phone: [facility] 02-24-2024 17:02-0400 Systolic blood pressure 132 mm[Hg] DO Augustine Ball Work Phone: [facility] 02-24-2024 16:20-0400 Body temperature 98 [degF] DO Augustine Ball Work Phone: [facility] 02-24-2024 15:55-0400 Inhaled oxygen flow rate 8 L/min DO Augustine Ball Work Phone: [facility] 02-24-2024 15:38-0400 Body height 182.88 cm DO Augustine Ball Work Phone: [facility] 02-24-2024 15:38-0400 Body mass index (BMI) [Ratio] 32.5 kg/m2 DO Augustine Ball Work Phone: [facility] 02-24-2024 15:38-0400 Body weight 109 kg DO Augustine Ball Work Phone: [facility] 01-31-2024 15:34-0400 Body height 181.61 cm [facility] 01-31-2024 15:34-0400 Body mass index (BMI) [Ratio] 34.5 kg/m2 [facility] 01-31-2024 15:34-0400 Body weight 114.07 kg [facility] 01-31-2024 15:34-0400 Diastolic blood pressure 79 mm[Hg] [facility] 01-31-2024 15:34-0400 Heart rate 53 /min [facility] 01-31-2024 15:34-0400 Respiratory rate 12 /min [facility] 01-31-2024 15:34-0400 Systolic blood pressure 130 mm[Hg] [facility] 10-31-2023 10:30-0500 Body height Augustine Ball Other [facility] Other 10-31-2023 10:30-0500 Body mass index (BMI) [Ratio] 33.47 kg/m2 Augustine Ball Other [facility] Other 10-31-2023 10:30-0500 Body weight 110.41 kg Augustine Ball Other [facility] Other 10-31-2023 10:30-0500 Diastolic blood pressure 68 mm[Hg] Augustine Ball Other [facility] Other 10-31-2023 10:30-0500 Respiratory rate 12 /min Augustine Ball Other [facility] Other 10-31-2023 10:30-0500 Systolic blood pressure 122 mm[Hg] Augustine Ball Other [facility] Other 03-16-2023 11:19-0400 Body height 182.9 cm Azul Rachel [employer] Work Phone: [email or web address] 03-16-2023 11:19-0400 Body mass index (BMI) [Ratio] 33.23 kg/m2 Azul Virginie HR [employer] Work Phone: [email or web address] 03-16-2023 11:19-0400 Body temperature 97.2 [degF] Azul Rachel HR [employer] Work Phone: [email or web address] 03-16-2023 11:19-0400 Body weight 111.13 kg Azul Virginie HR [employer]IST Work Phone: [email or web address] [facility] 01-05-2023 12:00-0400 Body height Augustine Ball Other [facility] Other 01-05-2023 12:00-0400 Body mass index (BMI) [Ratio] 33.36 kg/m2 Augustine Ball Other [facility] Other 01-05-2023 12:00-0400 Body weight 110.04 kg Augustine Ball Other [facility] Other 01-05-2023 12:00-0400 Diastolic blood pressure 70 mm[Hg] Augustine Ball Other [facility] Other 01-05-2023 12:00-0400 Respiratory rate 12 /min Augustine Ball Other [facility] Other 01-05-2023 12:00-0400 Systolic blood pressure 118 mm[Hg] Augustine Ball Other [facility] Other 10-04-2022 12:00-0500 Body height Augustine Ball Other [facility] Other 10-04-2022 12:00-0500 Body mass index (BMI) [Ratio] 33.44 kg/m2 Augustine Ball Other [facility] Other 10-04-2022 12:00-0500 Body weight 110.32 kg Augustine Ball Other [facility] Other 10-04-2022 12:00-0500 Diastolic blood pressure 78 mm[Hg] Augustine Ball Other [facility] Other 10-04-2022 12:00-0500 Respiratory rate 12 /min Augustine Ball Other [facility] Other 10-04-2022 12:00-0500 Systolic blood pressure 128 mm[Hg] Augustine Metz Other [facility] [employer] Other 10-01-2022 08:30-0500 Diastolic blood pressure 77 mm[Hg] Damari Rojas Dept. of Dermatology 10-01-2022 08:30-0500 Systolic blood pressure 132 mm[Hg] Damari Rojas [facility]at[facility] 07-08-2022 11:47-0400 Body height 182.9 cm Pastor Bedoay MD Work Phone: [email or web address] 07-08-2022 11:47-0400 Body mass index (BMI) [Ratio] 33.23 kg/m2 Pastor Bedoya MD Work Phone: [email or web address] 07-08-2022 11:47-0400 Body weight 111.13 kg Pastor Bedoya MD Work Phone: [email or web address] [facility] 05-03-2022 08:48-0400 Blood Pressure Location Mc ALMON[facility] 05-03-2022 08:48-0400 Diastolic blood pressure 67 mm[Hg] [facility] 05-03-2022 08:48-0400 Heart rate 70 /min Mc ALMONTE [facility] 05-03-2022 08:48-0400 Respiratory rate 16 /min Mc ALMONTE [facility] 05-03-2022 08:48-0400 Systolic blood pressure 120 mm[Hg] [facility] 04-08-2022 09:49-0400 Body height 182.9 cm Azul Rachel HR [employer] Work Phone: [email or web address] 04-08-2022 09:49-0400 Body mass index (BMI) [Ratio] 33.23 kg/m2 Azul Rachel [employer] Work Phone: [email or web address] 04-08-2022 09:49-0400 Body temperature 96.91 [degF] Azul Rachel HR [employer] Work Phone: [email or web address] 04-08-2022 09:49-0400 Body weight 111.13 kg Azul Rachel [employer]IST Work Phone: [email or web address] [facility] 03-16-2022 11:00-0400 Body temperature 97.7 [degF] Pastor Bedoya MD Work Phone: [facility] [employer] [facility] 03-16-2022 11:00-0400 Diastolic blood pressure 70 mm[Hg] Pastor Bedoya MD Work Phone: [email or web address] 03-16-2022 11:00-0400 Heart rate 77 /min Pastor Bedoya MD Work Phone: [email or web address] 03-16-2022 11:00-0400 Respiratory rate 14 /min Pastor Bedoya MD Work Phone: [email or web address] 03-16-2022 11:00-0400 SaO2% (BldA) [Mass fraction] 96 % Pastor Bedoya MD Work Phone: [email or web address] 03-16-2022 11:00-0400 Systolic blood pressure 142 mm[Hg] Pastor Bedoya MD Work Phone: [email or web address] [facility] 03-15-2022 09:00-0400 Body height 182.9 cm Pastor Bedoya MD Work Phone: [email or web address] 03-15-2022 09:00-0400 Body mass index (BMI) [Ratio] 31.73 kg/m2 Pastor Bedoya MD Work Phone: [email or web address] 03-15-2022 09:00-0400 Body weight 106.14 kg Pastor Bedoya MD Work Phone: [email or web address] 2022 12:57-0400 Body height 182.9 cm Pastor Bedoya MD Work Phone: [email or web address] 2022 12:57-0400 Body mass index (BMI) [Ratio] 33.23 kg/m2 Pastor Bedoya MD Work Phone: [email or web address] 2022 12:57-0400 Body temperature 97.2 [degF] Pastor Bedoya MD Work Phone: [email or web address] 2022 12:57-0400 Body weight 111.13 kg Pastor Bedoya MD Work Phone: [email or web address] 11-04-2021 14:30-0500 Body height Carmen Femi Other [facility] Other 03-20-2020 11:06-0400 BMI (Body Mass Index) 33.63 kg/m2 [facility] 03-20-2020 11:06-0400 Body Temperature 97.5 [degF] [facility] 03-20-2020 11:06-0400 Body weight 112.49 kg [facility] 03-20-2020 11:06-0400 Height 182.9 cm [facility] Cu[facility]date 1945 00:00-0500 >na< Damari Rojas Dept. of Dermato logy Encounters Encounter Date Encounter Type Care Provider Facility Start: 03-22-2024 End: 03-22-2024 ambulatory [facility] Start: 03-16-2024 End: 03-16-2024 ambulatory [facility] Start: 03-09-2024 End: 03-09-2024 ambulatory JOSE R DODD Not Available Start: 03-06-2024 End: 03-06-2024 ambulatory AUGUSTINE TERRELLK Not Available Start: 02-27-2024 End: 02-27-2024 ambulatory AUGUSTINE W NIDHIK Not Available Start: 02-27-2024 End: 02-27-2024 ambulatory DO Augustine Ball Work Phone: [facility] Work Phone: Start: 02-27-2024 End: 02-27-2024 Patient encounter procedure DO Augustine Ball Work Phone: [facility] Work Phone: Start: 02-24-2024 End: 02-24-2024 Admission to same day surgery center DO Augustine Ball Work Phone: [facility] [place] Start: 02-24-2024 End: 02-24-2024 ambulatory DO Augustine Ball Work Phone: [facility] Work Phone: Start: 02-16-2024 End: 02-16-2024 Patient encounter procedure DO Augustine Ball Work Phone: [facility] Work Phone: Start: 02-16-2024 End: 02-16-2024 ambulatory DO Augustine Ball Work Phone: [facility] Work Phone: Start: 02-16-2024 Encounter for preprocedural cardiovascular examination Augustine Freitas [facility] Start: 02-15-2024 End: 02-15-2024 ambulatory AUGUSTINE FREITAS Not Available Start: 02-15-2024 End: 02-15-2024 ambulatory CHRISTIN James HOANG Not Available Start: 02-09-2024 End: 02-09-2024 ambulatory [facility] Start: 01-31-2024 End: 01-31-2024 ambulatory [facility] Work Phone: Start: 01-31-2024 End: 01-31-2024 Patient encounter procedure [facility] Work Phone: Start: 01-31-2024 Non-patient / Non-visit [facility] Work Phone: Start: 01-29-2024 Evaluation and management of inpatient BRIGITTE PERRY [facility] Start: 01-27-2024 Evaluation and management of inpatient LIONEL [facility] Start: 01-26-2024 Evaluation and management of inpatient LIONEL [facility] Start: 01-26-2024 Evaluation and management of inpatient LIONEL [facility] Start: 01-25-2024 Evaluation and management of inpatient LIONEL [facility] Start: 01-25-2024 Evaluation and management of inpatient LIONEL [facility] Start: 01-25-2024 Evaluation and management of inpatient [facility] Start: 01-25-2024 Evaluation and management of inpatient [facility] Start: 01-25-2024 Evaluation and management of inpatient [facility] Start: 01-24-2024 End: 01-29-2024 Evaluation and management of inpatient [facility] Start: 01-18-2024 Non-patient / Non-visit [facility] Work Phone: Start: 01-10-2024 End: 01-10-2024 ambulatory OSMAN SHAH Not Available Start: 12-30-2023 End: 12-30-2023 ambulatory JOSE R DODD Not Available Start: 12-16-2023 Non-patient / Non-visit [facility] Work Phone: Start: 11-01-2023 End: 11-01-2023 ambulatory Augustine Metz Other [facility] [employer] Other Start: 11-01-2023 Telephone encounter Augustine Metz [facility] Isaías [facility] Start: 10-31-2023 End: 10-31-2023 ambulatory Augustine Metz Other [facility] Other Start: 10-31-2023 Office outpatient vi sit 25 minutes Augustine Metz [facility] Start: 10-28-2023 Bamboo flowsheet Jose R Hogan Za hler DO Work Phone: [facility] Start: 10-28-2023 Bamboo flowsheet Jose R Hogan Za hler DO Work Phone: [facility] Start: 10-28-2023 End: 10-28-2023 ambulatory JOSE R CHURCHILLER Not Available Start: 10-24-2023 End: 10-24-2023 ambulatory [facility] Start: 09-16-2023 End: 01-24-2024 ambulatory [facility] Start: 09-06-2023 End: 09-06-2023 ambulatory [facility] Start: 08-29-2023 End: 08-29-2023 ambulatory JOSE R CHURCHILLER Not Available Start: 08-27-2023 End: 08-29-2023 ambulatory JOSE RANASTASIA CHURCHILLER Not Available Start: 08-26-2023 End: 08-26-2023 ambulatory JOSE RANASTASIA MAGUIREHLER Not Available Start: 07-11-2023 End: 07-11-2023 ambulatory Augustine Metz Other [facility] Other Start: 07-11-2023 Telephone encounter Augustine Metz [facility] Start: 07-10-2023 End: 07-10-2023 ambulatory Augustine Metz Other [facility] Other Start: 07-10-2023 Telephone encounter Augustine Metz [facility] Start: 07-05-2023 End: 07-05-2023 Emergency department patient visit Augustine Metz Facility:[facility] Start: 03-16-[address] [facility] Start: 03-16-2023 End: 03-16-2023 Office outpatient visit 15 minutes Azul Rachel [employer]IST Work Phone: [facility] Comment on above: Hx of total knee art hroplasty, right (Primary Dx) Start: 03-16-2023 End: 03-16-2023 Subsequent hospital visit by physician Azul Rachel [employer]IST Work Phone: [facility] Start: 02-01-2023 ambulatory AUGUSTINE METZ Facilit y:[email or web address] Start: 01-24-2023 End: 02-23-2023 ambulatory SHAIKH Tiburcio PRICE Facility:[facility]1 Start: 01-22-2023 End: 01-22-2023 ambulatory Augustine Metz Other [facility] Other Start: 01-22-2023 Telephone encounter Augustine PHILIPPE [facility] Start: 2023 End: 01-22-[address] AUGUSTINE METZ Facility:[facility] Start: 01-05-2023 End: 01-05-2023 ambulatory Augustine Metz Other [facility] Other Start: 01-05-2023 Office outpatient vi sit 25 minutes Augustine Metz [facility] Start: 12-27-2022 End: 2023 ambulatory SHAIKH Tiburcio PRICE Facility:[facility]1 Start: 11-24-2022 End: 12-24-2022 ambulatory SHAIKH Tiburcio PRICE Facility:[facility] Start: 11-10-2022 End: 11-10-2022 ambulatory Augustine Metz Other [facility] Other Start: 11-10-2022 Telephone encounter Augustine PHILIPPE [facility] Start: 11-09-2022 Telephone encounter Augustine PHILIPPE [facility] Start: 11-09-2022 End: 11-10-2022 ambulatory AUGUSTINE METZ [facility] Other Start: 11-08-2022 ambulatory AUGUSTINE METZ Facilit y:[email or web address] Start: 11-01-2022 End: 11-02-[address] DOCTOR ABERNATHY Facility:[facility]1 Start: 10-28-2022 ambulatory AUGUSTINE METZ Facilit y:[facility] Start: 10-27-2022 End: 11-24-2022 ambulatory SHAIKH Tiburcio PRICE Facility:[facility] Start: 10-26-2022 End: 10-27-2022 ambulatory PUJA HOLBROOK MD Facility:[facility] Start: 10-19-2022 End: 10-20-[address] AUGUSTINE METZ Facility:[facility] Start: 10-04-2022 Damari Rojas Dept. of D Bomgaratology Start: 10-04-2022 End: 10-04-2022 ambulatory Augustine Metz Other [facility] Other Start: 10-04-2022 Office outpatient vi sit 25 minutes Augustine [facility]z [facility] Start: 10-01-2022 ambulatory Ms. Osman Shah Facility:[id number] Start: 09-27-2022 End: 10-27-2022 ambulatory SHAIKH Tiburcio PRICE Facility:[facility]1 Start: 09-14-2022 Damari Rojsa Dept. of [employer] Start: 09-09-2022 Pre-procedure evaluation check Augustine Metz Other [facility] Other Start: 09-07-[address] Macario Bui Facility:[id number] Start: 08-26-2022 End: 09-26-2022 ambulatory SHAIKH Tiburcio PRICE Facility:[facility]1 Start: 07-27-2022 End: 08-25-2022 ambulatory SHAIKH Tiburcio PRICE Facility:[facility]1 Start: 07-13-2022 End: 07-14-[address] AUGUSTINE METZ Facility:[facility]1 Start: 07-08-2022 ambulatory PASTOR BEDOYA [facility] Start: 07-08-2022 End: 07-08-2022 Office outpatient visit 15 minutes Pastor Bedoya MD Work Phone: [facility] Comment on above: Hx of total knee art hroplasty, right (Primary Dx) Start: 07-08-2022 End: 07-08-2022 Subsequent hospital visit by physician Pastor Bedoya MD Work Phone: [facility] Start: 06-28-2022 End: 06-29-[address] AUGUSTINE METZ Facility:[facility]1 Start: 06-28-2022 End: 07-26-2022 ambulatory SHAIKH Tiburcio PRICE Facility:[facility]1 Start: 06-15-2022 End: 06-16-[address] AUGUSTINE METZ Facility:[facility]1 Start: 05-27-2022 End: 06-26-2022 ambulatory SHAIKH Tiburcio PRICE Facility:[facility]1 Start: 05-03-2022 End: 05-03-2022 Patient encounter procedure Mc Blackman GAGE [facility] Start: 04-26-2022 End: 04-27-[address] AUGUSTINE METZ Facility:[facility]1 Start: 04-26-2022 End: 05-26-2022 ambulatory SHAIKH Tiburcio PRICE Facility:[facility]1 Start: 04-19-2022 End: 05-08-[address] AUGUSTINE METZ Facility:[facility]1 Start: 04-08-2022 ambulatory AZUL RACHEL [facility] Start: 04-08-2022 End: 04-08-2022 Postop follow up visit related to original px Azul LAN Work Phone: [facility] Comment on above: Hx of total knee art hroplasty, right (Primary Dx) Start: 04-08-2022 End: 04-08-2022 Subsequent hospital visit by physician Azul LAN Work Phone: [facility] Start: 04-07-2022 End: 04-08-[address] AUGUSTINE METZ Facility:[facility]1 Start: 03-26-2022 End: 04-23-2022 ambulatory SHAIKH Tiburcio PRICE Facility:[facility]1 Start: 03-15-2022 End: 03-16-2022 Patient encounter status aPstor Bedoya MD Work Phone: [facility] Start: 03-15-2022 End: 03-16-2022 Subsequent hospital visit by physician Pastor Bedoya MD Work Phone: [facility] Comment on above: S/P total knee arthr oplasty, right Start: 2022 End: 2022 Office outpatient new 60 minutes Pastor Bedoya MD Work Phone: [facility] Comment on above: Right knee pain, uns pecified chronicity (Primary Dx); Pain in prosthetic joint, sequela Start: 2022 End: 2022 Subsequent hospital visit by physician Pastor Bedoya MD Work Phone: [facility] Start: 11-04-2021 End: 11-04-2021 ambulatory Carmen Kahn Other [facility] Other Start: 11-04-2021 Office outpatient vi sit 25 minutes Carmen Kahn [facility] Start: 11-03-2021 End: 11-03-2021 ambulatory Carmen Kahn Other [facility] Other Start: 11-03-2021 Telephone encounter Carmen Kahn [facility] Start: 03-20-2020 End: 03-20-2020 Office outpatient visit 15 minutes Pastor Bedoya Work Phone: [facility] Comment on above: 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) Start: 03-20-2020 End: 03-20-2020 Subsequent hospital visit by physician Azul LAN Work Phone: [facility] Start: 06-13-2019 End: 06-14-2019 Patient encounter procedure GENE JONES Facility:[facility] Procedures Date Procedure Procedure Detail Performing Clinician [...] Phone: Start: 03-15-2022 Prothrombin time Azul Rachel [employer] Work Phone: Start: 03-15-2022 Cultyp nuc acid amp prb cult/isolate ea orgnism Azul Rachel HR [employer]IST Work Phone: Start: 03-15-2022 Sars-cov-2 detection by dna/rna Azul ramirez HR [employer]IST Work Phone: Start: 03-15-2022 Antibody screen rbc each serum technique Pastor Bedoya MD Work Phone: Start: 03-15-2022 End: 03-15-2022 Thromboplastin time partial plasma/whole blood Azul Rachel [employer] Work Phone: Start: 01-10-2020 Renal lithotripsy Mc ALMONTE Start: 10-23-2019 Cystoscopic removal of ureteric stent Mc ALMONTE Start: 09-26-2019 Endoscopic retrograde cholangiopancreatography Mc ALMONTE Cholecystectomy [facility] Colonoscopy Mc ALMONTE Depression screening Ramirez Metz Other Total knee replacement Ro ALMONTE Plan of Treatment Date Care Activity Detail Author Start: 02-24-2024 End: 02-24-2024 [facility] Start: 01-10-2024 End: 01-10-2024 Patient encounter procedure 01/10/2024 9:35 AM EDT Office Visit [facility] [address] [place] [address] Osman Shah HR [employer] SPECIALIST [address] [place] [address] [facility] Start: 10-28-2023 End: 10-28-2023 Patient encounter procedure 10/28/2023 9:30 AM EST Procedure Visit [facility] [address] [place] [id number] Jose R Dodd DO [address] [place] [address] Arrived [facility] Comment on above: Arrived Start: 05-27-2023 Influenza vaccination Influenza Vacc ine (#1) [facility] Start: 03-16-2023 End: 03-16-2023 Patient encounter procedure 03/16/2023 Office Visit Orthopaedics Azul Rachel, HR [employer] SPECIALIST [address] [place] [address] [facility] Start: 10-22-2022 COVID-19 VACCINE (6 - Pfizer series) COVID-19 VACCINE (6 - Pfizer series) [facility] Start: 08-21-2022 Hemoglobin A1c measurement HBA1C TEST [facility] Start: 07-08-2022 End: 07-08-2022 Patient encounter procedure 07/08/2022 Office Visit Orthopaedics Pastor Bedoya MD [address] [place] [address] [facility] Start: 05-27-2022 Influenza vaccination A [facility] Start: 04-08-2022 End: 04-08-2022 Patient encounter procedure 04/08/2022 Office Visit Orthopaedics Azul Rachel, HR INTERN-TOBI [address] [place] [address] [facility] Start: 02-18-2022 End: 02-18-2022 ambulatory 02/18/2022 Pre-Operative Nurse Assessment Internal Medicine [facility] Pre Admission Start: 05-27-2020 Influenza vaccination INFLUENZ A VACCINE (Season Ended) [facility] Start: 12-25-2014 Pneumococcal vaccination PNEUMOCOCCAL VACCINE SERIES (2 - PCV) [facility] Start: 12-25-2014 Pneumococcal Vaccine : 65+ Years (2 - PCV) Pneumococcal Vaccine: 65+ Years (2 - PCV) [facility] Start: 2011 Abdominal aortic aneurysm screening ABDOMINAL AORTIC ANEURYSM HIGH RISK SCREEN [facility] Start: 2011 Pneumococcal vaccination [facility] Start: 01-22-1996 Colonoscopy COLORECTAL CAN CER SCREENING DISCUSSION [facility] Start: 01-22-1996 Prostate specific antigen measurement PROSTATE CANCER SCREENING DISCUSSION [facility] Start: 01-22-1996 Zoster vaccine hzv live for subcutaneous use ZOSTER (SHINGLES) VACCINE (1 of 2) [facility] Start: 1991 Colonoscopy COLORECTAL CAN CER SCREENING DISCUSSION [facility] Start: 1991 Screening for malignant neoplasm of colon COLORECTAL CANCER SCREENING DISCUSSION [facility] Start: 1986 Fasting lipid profile LIPID SCREENIN G [facility] Start: 1965 Third diphtheria, tetanus and acellular pertussis (DTaP) vaccination TDAP (ADULT) [facility] Start: 01-22-1964 Tetanus vaccination TETANUS [facility] Start: 1951 COVID-19 VACCINE (#1) COVID-19 VACCI NE (#1) [facility] Start: 1946 COVID-19 VACCINE (#1) COVID-19 VACCI NE (#1) [facility] Start: 1946 Diabetic foot examination DIABETIC FOOT EXAM [facility] Start: 1946 Diabetic retinal eye exam EYE EXAM [facility] Start: 1946 Glaucoma screening EYE EXAM [facility] Start: 1946 Hepatitis B vaccination HEP B VACCINE (1 of 3 - 3-dose series) [facility] Start: 1946 Hepatitis C antibody , confirmatory test HEPATITIS C VIRUS SCREENING [facility] Start: 1946 Hepatitis C screening HEPATITI S C VIRUS SCREENING [facility] Start: 1946 Lipid panel LIPIDS [facility] Start: 1946 LIPIDS LIPIDS [facility] Start: 1946 Microalbumin measurement, urine, quantitative URINE MICROALBUMIN TEST [facility] Start: 1946 Potassium [Moles/Vol] POTASSIUM A [facility] Start: 1946 Tetanus vaccination TETANUS [facility] Start: 1946 Urine screening for protein URINE MICROALBUMIN TEST [facility] Patient Education Know your Meds [facility] Work Phone: Patient referral [facility] Work Phone: Radiography for bone length studies XR BONE LENGTH STUDY Imaging Routine Hx of total knee arthroplasty, right 07/08/2022 11:01 AM EDT [facility] Work Phone: SURGICAL PATHOLOGY REQUEST SURGICAL PATHOLOGY REQUEST Surg Path Routine Osteoarthritis of right knee, unspecified osteoarthritis type Release Upon Ordering for 1 Occurrences starting 03/15/2022 [facility] Work Phone: Comment on above: Release Upon Orderin g for 1 Occurrences starting 03/15/2022 X-ray of left knee XR KNEE LEFT 3 VIEWS Imaging Routine History of revision of total replacement of left knee joint 03/20/2020 10:48 AM EDT [facility] K[facility] - left 3 Views XR KNEE L EFT 3 VIEWS Imaging Routine Pain in prosthetic joint, sequela 2022 1:09 PM EDT [facility] XR Knee - right 3 Views XR KNEE RIGHT 3 VIEWS Imaging Routine Hx of total knee arthroplasty, right 04/08/2022 10:04 AM EDT [email or web address] System XR Knee - right 3 Views XR KNEE RIGHT 3 VIEWS Imaging Routine Hx of total knee arthroplasty, right 07/08/2022 11:01 AM EDT [email or web address] [facility] XR Knee - right 3 Views XR KNEE RIGHT 3 VIEWS Imaging Routine Hx of total knee arthroplasty, right 03/16/2023 11:03 AM EDT [facility] XR Knee - right 4 Views XR KNEE RIGHT 4+ VIEWS Imaging Routine Right knee pain, unspecified chronicity 2022 12:51 PM EDT [facility] Immunizations Immunization Date Immunization Notes Care Provider Dunia burrell 12-27-2023 COVID-19 (PFIZER) 12Y and older DO Augustine Ball Work Phone: [facility] 07-08-2023 influenza virus vaccine, unspecified formulation [facility] 07-08-2023 influenza, high dose seasonal, preservative-free Augustine Ball Other [facility] Other 06-21-2023 COVID-19 (PFIZER) 12Y and older DO Augustine Ball Work Phone: [facility] 03-03-2023 zoster vaccine recombinant Augustine Ball Other [facility] 01-01-2023 zoster vaccine recombinant Augustine Ball Other [facility] 06-29-2022 influenza, high dose seasonal, preservative-free Augustine Ball Other [facility] Other 06-29-2022 influenza virus vaccine, split virus (incl. purified surface antigen) Augustine Ball Other [facility] Other 06-29-2022 influenza virus vaccine, unspecified formulation Jose R Dodd DO Work Phone: [facility] 06-22-2022 COVID-19 Pfizer (bivalent) Augustine Ball Other [facility] 04-17-2022 COVID-19 Comirnaty (Pfizer) Tri-Sucrose 12+ DO Augustine Metz Work Phone: [facility] 07-15-2021 influenza virus vaccine, split virus (incl. purified surface antigen) Augustine Metz Other [facility] Other 07-15-2021 influenza virus vaccine, unspecified formulation [facility] 06-22-2021 COVID-19 Vaccine Pfi zer - Documentation Purposes Only Augustine Metz Other [facility] 11-20-2020 COVID-19 Vaccine Pfi zer - Documentation Purposes Only Augustine Isaías Other [facility] 10-30-2020 COVID-19 Vaccine Pfi zer - Documentation Purposes Only Augustine Metz Other [facility] 07-01-2020 influenza virus vaccine, split virus (incl. purified surface antigen) Augustine Isaías Other [facility] Other 07-01-2020 influenza virus vaccine, unspecified formulation [facility] 07-06-2019 influenza virus vaccine, split virus (incl. purified surface antigen) Augustine Metz Other [facility] Other 07-06-2019 influenza virus vaccine, unspecified formulation [facility] 07-12-2018 influenza virus vaccine, split virus (incl. purified surface antigen) Augustine Metz Other [facility] Other 07-12-2018 influenza virus vaccine, unspecified formulation [facility] 07-25-2017 influenza virus vaccine, split virus (incl. purified surface antigen) Augustine Isaías Other [facility] Other 07-25-2017 influenza virus vaccine, unspecified formulation [facility] 07-07-2016 influenza virus vaccine, split virus (incl. purified surface antigen) Augustine Metz Other [facility] Other 07-07-2016 influenza virus vaccine, unspecified formulation [facility] 07-18-2015 pneumococcal conjuga te vaccine, 13 valent Augustine Metz Other [facility] 06-11-2015 influenza virus vaccine, split virus (incl. purified surface antigen) Augustine Metz Other [facility] Other 06-11-2015 influenza virus vaccine, unspecified formulation [facility] 06-17-2014 tetanus and diphther ia toxoids, adsorbed, preservative free, for adult use (5 Lf of tetanus toxoid and 2 Lf of diphtheria toxoid) Augustine Isaías Other [facility] 08-28-2013 pneumococcal polysaccharide vaccine, 23 valent Augustine Metz Other [facility] 07-26-2013 tetanus and diphther ia toxoids, adsorbed, preservative free, for adult use (5 Lf of tetanus toxoid and 2 Lf of diphtheria toxoid) Augustine Isaías Other [facility] 07-18-2013 zoster vaccine, live Ramirez Metz Other [facility] 1945 pneumococcal conjuga te vaccine, 7 valent Damari Rojas [facility] Payers Date Payer Category Payer Self-pay [id number] 2017 Unknown [employer] [id number] 2017-Present [id number]. [id number] 2010 Medicare MEDICARE MEDICAR E A AND B [id number] 2010-Present [place] [id number]. [id number] 2008 Medicare [id number] 1.13.172.2.7.3. [id number] 2008 Unknown [id number]. 1.13.172.2.7.3. [id number] 1959 Medicare [id number] 2.16.840.1.450435.19 1959 Unknown [id number] 1946 Unknown [id number] 2.16.840.1.284586.3.579.2.647 1946 Unknown [id number] 2.16.840.1.011535.3.579.2.356 1946 Unknown [id number] 2.16.840.1.613077.3.579.2.356 1946 Unknown [id number] 2.16.840.1.488267.3.579.2.159 1946 Unknown [id number] 2.16.840.1.602820.3.579.2.159 1946 Unknown [id number] 2.16.840.1.785229.3.579.2.159 1946 Unknown [id number] 2.16.840.1.111655.3.579.2.159 1946 Unknown [id number] 2.16.840.1.012630.3.579.2.159 1946 Unknown [id number] 2.16.840.1.363134.3.579.2.593 1946 Unknown [id number] 2.16.840.1.631604.3.579.2.593 1946 Unknown [id number] 2.16.840.1.460342.3.579.2.593 1946 Unknown [id number] 2.16.840.1.046652.3.579.2.593 1946 Unknown [id number] 2.16.840.1.601622.3.579.2.593 1946 Unknown [id number] 2.16.840.1.409429.3.579.2.593 1946 Unknown [id number] 2.16.840.1.776955.3.579.2.593 1946 Unknown [id number] 2.16.840.1.884046.3.579.2.593 1946 Unknown [id number] 2.16.840.1.070856.3.579.2.593 1946 Unknown [id number] 2.16.840.1.640089.3.579.2.593 1946 Unknown [id number] 2.16.840.1.801143.3.579.2.593 1946 Unknown [id number] 2.16.840.1.772936.3.579.2.593 1946 Unknown [id number] 2..840.1.771976.3.579.2.593 1946 Unknown [id number] 2.16.840.1.306248.3.579.2.593 1946 Unknown [id number] 2.16.840.1.186446.3.579.2.593 1946 Unknown [id number] 2.16.840.1.396786.3.579.2.593 1946 Unknown [id number] 2.16.840.1.758419.3.579.2.593 1946 Unknown [id number] 2.16.840.1.329006.3.579.2.593 1946 Unknown [id number] 2.16.840.1.335108.3.579.2.593 1946 Unknown [id number] 2.16.840.1.777830.3.579.2.593 1946 Unknown [id number] 2.16.840.1.817568.3.579.2.983 1946 Unknown [id number] 2.16.840.1.934878.3.579.2.983 1946 Unknown [id number] 2.16.840.1.736400.3.579.2.983 1946 Unknown [id number] 2.16.840.1.978985.3.579.2.983 1946 Unknown [id number] 2.16.840.1.043869.3.579.2.983 1946 Unknown [id number] 2.16.840.1.581260.3.579.2.983 1946 Unknown [id number] 2.16.840.1.698989.3.579.2.718 1946 Unknown [id number] 2.16840.1.789104.3.579.2.125 1946 Unknown [id number] 2.16.840.1.015366.3.579.2.1259 1946 Unknown [id number] 2.16.840.1.584514.3.579.2.1259 1946 Unknown [id number] 2.16.840.1.928160.3.579.2.1259 1946 Unknown [id number] 2.16.840.1.948591.3.579.2.1259 1946 Unknown [id number] 2.16.840.1.397172.3.579.2.1259 1946 Unknown [id number] 2.16.840.1.728631.3.579.2.1259 1946 Unknown [id number] 2.16.840.1.590960.3.579.2.1259 1946 Unknown [id number] 2.16.840.1.309928.3.579.2.1259 1946 Unknown [id number] 2.16.840.1.358927.3.579.2.1259 1946 Unknown [id number] 2.16.840.1.240429.3.579.2.1259 Medicare [id number] Unknown [facility] [id number] Unknown [id number] 2.16.840.1.197797.3.579.2.531 Unknown [id number] 2.16.840.1.855167.3.579.2.531 Social History Date Type Detail Facility Start: 03-20-2020 End: 02-24-2024 Tobacco smoking status NHIS Former smoker [facility] End: 02-08-1983 History of tobacco use Current smoker [facility] Start: 03-20-2020 End: 07-08-2022 Tobacco use and exposure Former user [facility] End: 02-08-2003 History of tobacco use User of smokeless tobacco [facility] Start: 03-20-2020 End: 03-16-2023 Alcohol intake Current non-drinker of alcohol (finding) [facility] [employer] [facility] Start: 1945 Sex Assigned At Not on file A PATRICIA [facility] Start: 03-05-2022 End: 03-15-2022 Exposure to SARS-CoV-2 (event) Not sure Racemi Seltenerden Storkwitz [facility] Start: 03-16-2023 End: 06-30-2023 Sex Assigned At [facility] Other Start: 05-03-2022 End: 12-16-2023 Tobacco smoking status Never smoked tobacco (finding) [facility] End: 02-08-1983 History of tobacco use Cigarette Smoker [facility] Start: 09-14-2022 Dept. of D ermatology Start: 1945 Sex Assigned At Male [facility] Start: 03-16-2023 End: 06-30-2023 History of Social function [facility] Gender identity Identifies as ma le gender (finding) [facility] Start: 08-29-2023 End: 10-28-2023 Alcohol intake Lifetime non-drinker (finding) [facility] Start: 06-23-2023 Alcohol Comment caffeine: soda [facility] Medical Equipment Procedure Code Equipment Code [...] 05-03-2022 Functional Status N/A [facility] Clinical Notes 11-04-2021 to 03-22-2024 Note Date & Type Note Facility 03-22-2024 Note [facility] Subjective Tito Goncalves is a 79 [...] In April 2019 [facility] with [facility] fibrillation with controlled ventricular response. [...] normal. Allergies [place]ro (more content not included)... [facility] 03-16-2024 Note Patient: Tito mejia Procedure Information Date/Time: 03/16/24 1030 Procedure: TRANSESOPHAGEAL ECHO (JESSICA) Location: [facility] Vascular Lab Clinical information reviewed: Allergies Meds Physical Exam Airway Mallampati: II TM distance: >3 FB Neck ROM: full Cardiovascular Rhythm: regular Rate: normal Dental Pulmonary Abdominal Anesthesia Plan ASA 3 other (Conscious sedation.) Anesthetic plan and risks discussed with patient. Use of blood products discussed with patient who consented to blood products. Additional Equipment Requests [facility] 02-09-2024 Note Patient here for fol low up LAAO and pericardial effusion. Still denies chest pain, SOB, palpitations, and lightheadedness/syncope. Doing very well. Review of Systems Constitutional: Positive for malaise/fatigue. Cardiovascular: Positive for leg swelling (resolves by morning). Hematologic/Lymphatic: Bruises/bleeds easily. Musculoskeletal: Positive for arthritis, back pain and myalgias. All other systems reviewed and are negative. [facility] 02-09-[address] [facility] SUBJECTIVE Chief Complaint Patient presents [...] lower leg: Naman (more content not included)... [facility] 01-29-2024 Note Patient discharged w ith family. Patient provided copy of AVS and discharge instructions. All questions and concerns addressed. All belongings with patient [facility] 01-29-2024 Note Hospital Medicine Discharge Summary Final [...] In April 2019 [facility] with [facility] fibrillation with controlled ventricular response. [...] Center 02/09/2024 9:40 AM Madison Paul NP [facility] 03/16/2024 10:30 AM [facility] PROFESSOR OF GEOLOGY HOLDING ROOM [facility] Your medication list START taking these medications [...] Medications These medications were sent to [facility] - [place], [place] - [address] [place] [address] [place] [address], [facility] [address] amiodarone 200 mg tablet clopidogrel 75 mg tablet Tito is allergic to iodine, penicillins, shellfish containing products, and sulfa (sulfonamide antibiotics). Disposition: Home-Health Care [facility] (06) Discharge Condition: Stable Code Status: Full [...] oriented x3. Cardiology: (more content not included)... [facility] 01-29-2024 Note Cardiology Progress Note Subjective Subjective: [...] 86 QT Interval 316 QTC CALCULATION(BAZETT) 453 R-[place] 8 T Wave [place] 100 Impression Atrial fibrillation with rapid ventricular [...] (TTE) limited Result Date: 01/27/2024 1 1 [facility] Heart Station [address] [place] [address] [phone] (fax) Echocardiogram-[facility] Name: TITO GONCALVES Study Date: 01/27/2024 08:18 AM B/P: 147 mmHg/62 mmHg HR: 67 bpm Date of : 1945 Location: [facility] Height: 72 in. Age: 79 year(s) Patient [...] fibrinous material noted. Procedure Staff Reading Group: [facility] Environmental Technician: Daniela Shoots, BS, RDCS Ordering Physician: LIONEL MENA Transthoracic echo (TTE) limited Result Date: 01/26/2024 1 1 [facility] Heart Station [address] [place] [address] [phone] (fax) Echocardiogram-[facility] Name: TITO GONCALVES Study Date: 01/26/2024 07:59 AM B/P: 129 mmHg/74 mmHg HR: Date of : 1945 Location: [facility] Height: 72 in. Age: 79 year(s) Patient [...] atrium appears e (more content not included)... [facility] 01-28-2024 Note Cardiology Progress Note Subjective Subjective: [...] 86 QT Interval 316 QTC CALCULATION(BAZETT) 453 R[place] 8 T Wave [place] 100 Impression Atrial fibrillation with rapid ventricular [...] (TTE) limited Result Date: 01/27/2024 1 1 [facility] Heart Station [address] [place] [address] [phone] (fax) Echocardiogram-[facility] Name: TITO GONCALVES Study Date: 01/27/2024 08:18 AM B/P: 147 mmHg/62 mmHg HR: 67 bpm Date of : 1945 Location: [facility] Height: 72 in. Age: 79 year(s) Patient Room: [facility] Weight: 244 lb. Gender: Male Patient [...] fibrinous material noted. Procedure Staff Reading Group: [facility] Environmental Technician: MARLEY Donohue, RDCS Ordering Physician: LIONEL MENA Transthoracic echo (TTE) limited Result Date: 01/26/2024 1 1 [facility] Heart Station [address] [place] [address] [phone] (fax) Echocardiogram-[facility] Name: TITO GONCALVES Study Date: 01/26/2024 07:59 AM B/P: 129 mmHg/74 mmHg HR: Date of : 1945 Location: [facility] Height: 72 in. Age: 79 year(s) Patient [...] size. Right ventr (more content not included)... [facility] 01-28-2024 Note Physical Therapy Physical Therapy Evaluation & Treatment Patient Name: Tito Goncalves : 1945 Today's Date: 01/28/2024 Time in: 1:53 pm Time out: 2:20 pm Total time: 27 minutes 01/28/24 1422 PT Last Visit PT Received On 01/28/24 General Subjective Both RN and pt agreeable to PT this afternoon. Pt denies pain and asleep upon comic book writer entering room however easily awakens. Cognition Overall Cognitive Status WFL Arousal/Alertness Appropriate responses to stimuli Orientation Level Oriented X4 Following Commands Follows all commands and directions without difficulty Communication Intact Cognition Comments pt had difficulty navigating back to correct room after first bout of ambulation however after 2nd bout able to navigate back to room without external cues from comic book writer. Therapeutic Exercise Therapeutic Exercise Time Entry [...] tray table within reach. PT Assessment PT Assessment/[employer] Summary Pt continues to progress towards goals [...] (from Physical Therapy) Active Problems [facility]: 01[facility]27[facility]24 Goal Start Date Expected [...] vital signs throughout session 01/27/24 02/10/24 -- [facility] 01-28-2024 Note Hospital Medicine Daily Progress Note - 01/28/2024 11:20 AM; Room: [address] [place] [address] Admission: 01/24/2024 10:46 AM; Length of stay: 4 days THE HOSPITALIST TEAM PREFERS TO USE [employer] FOR COMMUNICATION 7AM-7PM. IF I DO NOT RESPOND WITHIN 15 MINUTES, PLEASE PAGE ME/CALL THROUGH THE FACILITY ATTENDANT. FROM 7PM-7AM, PLEASE PAGE [phone](COVR) Code Status: Full Code Barriers to Discharge: [...] complication and patient was admitted to the [facility] for over night monitoring to be continued [...] mg, oral, Daily (more content not included)... [facility] 01-27-2024 Note ---- Attestation signed by Srinath [...] Progress Note - 01/27/2024 12:46 PM; Room: [address] [place] [address] Admission: 01/24/2024 10:46 AM; Length of stay: 3 days THE HOSPITALIST TEAM PREFERS TO USE [employer] FOR COMMUNICATION 7AM-7PM. IF I DO NOT RESPOND WITHIN 15 MINUTES, PLEASE PAGE ME/CALL THROUGH THE FACILITY ATTENDANT. FROM 7PM-7AM, PLEASE PAGE [phone](COVR) Code Status: Full Code Barriers to Discharge: [...] oral, Nightly ami (more content not included)... [facility] 01-27-2024 Note [facility] CARDIOLOGY INPAT IENT PROGRESS [...] 86 QT Interval 316 QTC CALCULATION(BAZETT) 453 R-[place] 8 T Wave [place] 100 Impression Atrial fibrillation with rapid ventricular [...] function is normal. (more content not included)... [facility] 01-27-2024 Note ---- Attestation signed by Jay Benitez PT at 01/27/2024 11:18 AM This comic book writer (PT) provided one-on-one supervision, direction of [...] showed pericardial effusion, pt went to laboratory inspector for pericardiocentesis and currently has a pericardial drain. Discharge: home General Family/Caregiver Present: Yes (daughter) Subjective: RN approved PT eval and OOB activity. Pt supine in bed, agreeable to PT session. Upon completion, pt seated in chair, daughter present, call light given. PT Diagnosis: impaired functional mobility Patient Active Problem List Diagnosis Atrial fibrillation ([facility]/HCC) Hypertensive disorder Mitral valve disorder Obstructive sleep apnea syndrome Arrhythmia Bile duct obstruction Fall Gastroesophageal reflux disease without esophagitis Hyponatremia Mixed hyperlipidemia Pneumobilia Restless leg syndrome S/P total knee arthroplasty, right Stage 3a chronic kidney disease ([facility]) Subdural hematoma ([facility]) Type 2 diabetes mellitus without complication, without long-term current use of insulin ([facility]) Benign prostatic hyperplasia with urinary obstruction Calculus of ureter Diabetes mellitus ([facility]) Dry eyes Exposure keratitis Exudative age-related macular degeneration ([facility]) Family history of malignant neoplasm of skin Glaucoma Glycosuria Left corneal abrasion Proteinuria Paroxysmal atrial fibrillation ([facility]) Pericardial effusion Past Medical History: Diagnosis Date Abnormal ECG Arrhythmia Atrial fibrillation ([facility]) Heart valve disease Hypertension Sleep [...] Level of Function Prior Function Level of [place]: Independent with ADLs and functional transfers, Independent [...] No upper extremity (more content not included)... [facility] 01-27-2024 Note Occupational Therapy Occupational Therapy Evaluation [...] List Diagnosis Atrial fibrillation ([facility]) Hypertensive disorder Mitral valve disorder Obstructive sleep apnea syndrome Arrhythmia Bile duct obstruction Fall Gastroesophageal reflux disease without esophagitis Hyponatremia Mixed hyperlipidemia Pneumobilia Restless leg syndrome S/P total knee arthroplasty, right Stage 3a chronic kidney disease ([facility]) Subdural hematoma ([facility]) Type 2 diabetes mellitus without complication, without long-term current use of insulin ([facility]) Benign prostatic hyperplasia with urinary obstruction Calculus of ureter Diabetes mellitus ([facility]) Dry eyes Exposure keratitis Exudative age-related macular degeneration ([facility]) Family history of malignant neoplasm of skin Glaucoma Glycosuria Left corneal abrasion Proteinuria Paroxysmal atrial fibrillation ([facility]) Pericardial effusion Past Medical History: Diagnosis Date Abnormal ECG Arrhythmia Atrial fibrillation ([facility]) Heart valve disease Hypertension Sleep [...] Level of Function Prior Function Level of [place]: Independent with ADLs and functional transfers, Independent [...] Eating meals?: None (Independent) Total Score OT [facility]: 21 Assessment/Plan OT Assessment OT Impairments: Decreased ADL status, Decreased endurance, Decreased functional mobility OT Assessment/BUSINESS INTELLIGENCE ARCHITECT Summary: (needs skilled OT due to weakness [...] times per wee (more content not included)... [facility] 01-26-2024 Note ---- Attestation signed by Lionel [...] Goncalves Age - 79 y[facility] 1945 [id number] Date of Admission - 01/24/2024 10:46 AM [...] in limited echocar (more content not included)... [facility] 01-26-2024 Note ---- Attestation signed by Zoran [...] Value Ventricular Rate 52 Atrial Rate 52 AR Interval 184 QRS DURATION 84 QT Interval 424 QTC CALCULATION(BAZETT) 394 P [place] 79 R-[place] 51 T Wave [place] 76 Impression Sinus bradycardia Nonspecific T wave abnormality Abnormal ECG (more content not included)... [facility] 01-26-2024 Note 01/26/24 1243 Admission Assessment Questions Verify insurance with patient Yes Do you understand medical disease or what brought you into the hospital? Yes Who is your current PCP? Dr Metz in [place] Can I schedule a follow up appointment for you at the time of discharge? Yes Do you understand why you are taking your current medications? Yes Are you taking your medications as prescribed? Yes Did patient provide teach back? Yes Would you like use our pharmacy [facility] to fill your new medications at the time of Discharge? No Does the patient have a case specialist assigned to them through their insurance? No [...] to send link and activate MyChart? No [facility] 01-25-2024 Note ---- Attestation signed by Zoran [...] 10 mg, 10 mg, oral, Daily, Lilibeth Marhc MD nitroglycerin (Nitrostat) SL tablet 0.4 mg, [...] -- 01/25/24 0 (more content not included)... [facility] 01-25-2024 Note Patient: Tito mejia Procedure Information Date/Time: 01/25/24 1800 Procedure: Pericardiocentesis Location: [facility] PROFESSOR OF GEOLOGY 3 / [facility] (Cath) Providers: Oliver Crane [...] Plan discussed with attending. Additional Equipment Requests [facility] 01-25-2024 Note CLINICAL INFORMATION : Ground level [...] this report. Electronically signed: Trenton Martinez. 6 [facility] 01-25-2024 Note Responded to rr Hypotension fall [...] [facility] 01-24-2024 Note Pharmacy Dosing Serv ice - Vancomycin Initial Consult Note Pharmacy has been consulted for the dosing and evaluation of Drug: Vancomycin Indication: surgical prophylaxis Other Antimicrobial Regimens: None Labs and Renal Function Total body weight: 112 kg (248 lb) Rogers body weight: 77.6 kg (171 lb 1.2 [...] is afebrile and hemodynamically stable. Presenting to [facility] for closure of left atrial appendage. Vancomycin [...] questions Thank you, Rose Tomas, PharmD, 01/24/24 [facility] 01-24-2024 Note Patient: Tito mejia Procedure Information Date/Time: 01/24/24 1300 Procedure: Left atrial appendage closure (transvenous) - ADREINNE WILL CALL Location: [facility] PROFESSOR OF GEOLOGY 3 / [facility] (Cath) Providers: Oliver Crane MD Clinical information reviewed: Allergies Meds Physical Exam Airway Mallampati: II TM distance: >3 FB Neck ROM: full Cardiovascular Rhythm: regular Rate: normal Dental Pulmonary Abdominal Anesthesia Plan ASA 3 other (Conscious sedation.) Anesthetic plan and risks discussed with patient. Use of blood products discussed with patient who consented to blood products. Additional Equipment Requests [facility] 01-11-2024 Note Amna Sousa CNP - patient's daughter- called with questions about her dad's upcoming LAAO procedure. She said you had given her instructions for him previously regarding coumadin, but she cannot find it. Can you please call her cell phone when you get a chance? [phone] If you need me to do anything, please let me know. Thanks! :) [facility] 10-31-2023 Evaluation note Encounter Date Diagnosis Assessment [...] are maintaining regular scheduled appts with their meter tester polyphase. Scheduled for LAAO procedure but postponed until spring. Fall precautions. Oct, Obstructive sleep apnea (ICD-10 - G47.33) Auto CPAP 10-15, Facial Mask This patient is aware of the benefits associated with CUBA: With continued use, the patient reduces the risk for RI, CVA, HTN, cardiac dysrhythmias and sudden cardiac [...] Exercise w/ goal of 10% weight loss [facility] Other 02-02-2024 NoteRight Eye Quality was good. Scan locations included subfoveal. Progression has been stable. Findings include abnormal foveal contour, disciform scar. Left Eye Quality was good. Scan locations included subfoveal. Progression has been stable. Findings include normal observations.[facility] [id number] History of Present illness Narrative* Jose R [...] now given soon to be trip to [place] as well as side effects from last treatment in August. He was provided an Amsler grid to check daily and note any changes to this. He understands to get ahold of his retina specialist in [place] if there was a change. Will see [...] artificial tears were recommended. documented in this encounterSaint Luke's East [id number] [facility] Note Chief Complaint: [...] PSYCH: appropriate mood, affect, and judgement. Transesophageal Echocardiogram-[facility] Name: TITO GONCALVES Study Date: 09/16/2023 09:38 AM B/P: 136 mmHg/70 mmHg HR: Date of : 1945 Location: [facility] Height: 72 in. Age: 78 year(s) Patient Room : [facility] Weight: 246 lb. Gender: Male Patient Status: OutPt BSA: 2.33 m2 Indication: Atrial Fibrillation, Pre LAAO closure Examination: JESSICA/Limited Doppler/CFI, Agitated Saline, 3D images Image Quality: Good Patient Consent: Informed, written consent was obtained for the procedure s p @ c 3 Exam Location: A JESSICA was performed in the Nail Technician without complications s p @ c 3 [...] should problems arise Maggy Murphy MD, MPH, [facility], [facility], [facility] Interventional Cardiology Pager Email: [email or web address]12-12-2023 NoteUT Cardiology - [facility] Subjective Tito Goncalves is a 78 y.o. year old male patient being seen to discuss LAAO. He presented to [facility] ED in Jun 2023 for fall. He is anticoagulated with warfarin for afib. Back in December 2022 he had brain bleed s/p fall. Was treated at [facility]. He denies chest pain, SOB, and lightheadedness/syncope. [...] [facility] with controlled ventricular response. [...] Take 1 tablet (more content not included)... [facility]06-21-2023 History of Present illness Narrative* Shannen Chahal - 03/16/2023 11:20 AM EDT Ortho Nurse - Established Patient Intake Room#: 5 Date: 03/16/2023 11:20 AM Patient: Tito Goncalves MR#: [id number] : 1945 Age: 78 y.o. 1yr R [...] allergy, and sulfa antibiotics. * Azul Rachel APRN-GREEN PROMOTIONS SPECIALIST - 03/16/2023 11:20 AM EDT HPI: Patient [...] 03/16/2023 11:20 AM Patient: Tito Goncalves MR#: [id number] : 1945 Age: 78 y.o. 1yr R [...] Laterality: Right; Surgeon: Pastor Bedoya MD; Location: [facility] OR REVISION ARTHROPLASTY KNEE Left 02/22/2017 [...] allergy, and sulfa antibiotics. documented in this [facility]04-29-2023 Evaluation note* Encounter Date Diagnosis Assessment Notes Treatment Notes Treatment Clinical Notes Dec, Subarachnoid hemorrhage (ICD-10 - I60.9) [facility] Other 04-12-2023 Evaluation note* Encounter Date Diagnosis [...] are maintaining regular scheduled appts with their meter tester polyphase. Dec, Obstructive sleep apnea (ICD-10 - G47.33) Auto CPAP 10-15, Facial Mask This patient is aware of the benefits associated with CUBA: With continued use, the patient reduces the risk for RI, CVA, HTN, cardiac dysrhythmias and sudden cardiac [...] and weight loss. Improved control of BS [facility] Other 02-15-2023 Evaluation note* Encounter Date Diagnosis Assessment Notes Treatment Notes Treatment Clinical Notes Oct, Cholecystitis (ICD-1 0 - K81.9) [facility] Other 02-14-2023 NotePatient Education Material [facility] END[facility]COPY [facility] FOLLOW UP CARE ? [...] physician?s office at: THANK YOU FOR CHOOSING [facility] ENDOSCOPY DEPARTMENT FOR YOUR PROCEDURE! [phone] This information is not intended to replace advice given to you by your health care provider. Make sure you discuss any questions you have with your health care provider. ExitCare? Patient Information ?2016 [employer] Custom Education added 09/2018[facility]02-14-2023 NoteNursing Discharge Summary Entered On: 11/09/2022 [...] Sariah Schreiber RN R - 11/09/2022 8:43 [facility]* Encounter Date Diagnosis Assessment Notes [...] use, the patient reduces the risk for RI, CVA, HTN, cardiac dysrhythmias and sudden cardiac [...] INR being monitored, no bleeding complications noted [facility] Other 10-13-2022 History of Present illness Narrative* Luis Wang LPN - 07/08/2022 11:20 AM EDT Ortho Nurse - Established Patient Intake Room#: 2 4 month Right TKA, some pain of 1-2 when weed eating, going great Date: 07/08/2022 11:51 AM Patient: Tito Goncalves MR#: [id number] : 1945 Age: 77 y.o. Referring Physician: [...] 07/08/2022 11:51 AM Patient: Tito Goncalves MR#: [id number] : 1945 Age: 77 y.o. Referring Physician: [...] allergy, and sulfa antibiotics. documented in this [facility]08-08-2022 Hospital Discharge instructions Patient Education 05/03/2022 08:55:03 [...] urethra. Follow these instructions at home: Take sayh-qdx-dhijjig and prescription medicines only as told by [...] 09/12/2006 Document Revised: 08/07/2019 Document Reviewed: 10/17/2017 [email or web address] Patient Education [address] [employer]. Follow Up Care 04/27/2021 11:05:10 With:GAGE UMANZOR, Mc Blackman, URL Address: [facility] [address], [place] [address] [phone] When: Unknown Comments:PRN [facility] 07-14-2022 History of Present illness Narrative* Shannen Tirso - 04/08/2022 10:00 AM EDT Ortho Nurse - Established Patient Intake Room#: 5 Date: 04/08/2022 9:50 AM Patient: Tito Goncalves MR#: [id number] : 1945 Age: 77 y.o. 3wk S/P [...] 04/08/2022 9:50 AM Patient: Tito Goncalves MR#: [id number] : 1945 Age: 77 y.o. 3wk S/P [...] allergy, and sulfa antibiotics. documented in this encounterHol[facility]06[facility] Miscellaneous Notes* Nursing Notes - [...] Information Source Information Source patient Contact Information Food Checkers And Cashiers Supervisor Name Gini Medrano RN Case Manager's [...] that he plans to return home with [facility]. The patient states that his daughter is [...] assist with discharge plans. documented in this encounterMckee Medical CenterC9 Media [facility] [id number] Note* Nursing Notes - Kirsten Crawford RN - 03/16/2022 3:01 PM EDT Discharge instructions gone over with pt and pt's daughter at this time by Regina GAVIN. Both, verbalize understanding and deny any further questions. Hemovac drain removed at this time, tip intact upon removal, pt tolerated well. [facility]06-21-20[facility] History of Present illness Narrative* Blanca [...] Transfer Skill: Sit To Stand, Rehab Eval [place] (Sit-Stand Transfers) (mod I) Physical Assist/Nonphysical Assist: Sit/Stand 1 person assist Weight-Bearing Restrictions: Sit/Stand weight-bearing as tolerated Assistive Device For Transfer: Sit/Stand armed chair Gait Skills, PT Eval Level of [place]: Gait (mod I) Weight-Bearing Restrictions: Gait weight-bearing as tolerated Assistive Device For Transfer: Gait 2 wheeled walker Gait Distance (600ft; patient demonstrates a good quality heel - toe pattern consistently throughtout treatment) Stair Negotiation [place] Level: Stair Negotiation supervision Physical Assist: Stair [...] 100mg 4.00 Total $ 20.60 Birgit Henriquez (Hide Cleaner) reviewed medications with patient regarding indications, directions [...] Sit to Stand, Rehab Eval Level of [place]: Sit/Stand contact guard Physical Assist/Nonphysical Assist: Sit/Stand 1 person assist Weight-Bearing Restrictions: Sit/Stand weight-bearing as tolerated Assistive Device for Transfer: Sit/Stand wheeled walker;armed chair Transfer Skill: Stand to Sit, Rehab Eval Level of [place]: Stand/Sit contact guard Physical Assist/Nonphysical Assist: Stand/Sit [...] Prior Functional Impairment in Daily Activity [facility] Daily Activity Inpatient Short Form Putting on/Taking Off Lower Body Clothing 3 - A Little Assistance Bathing 3 - A Little Assistance Toileting 3 - A Little Assistance Putting on/Taking Off Upper Body Clothing 3 - A Little Assistance Grooming 3 - A Little Assistance Eating 4 - No Assistance [facility] Activity Raw Score 19 CURRENT AM-PAC Activity [...] initiation of treatment Therapist Information License # [id number] In addition to above, ambulated with CGA using FWW. Reclined in chair at end of session with his call light and personal items placed in reach. Jennifer Saab OTR/L 03/16/2022 * Pato Gutierrez - 03/16/2022 11:46 AM EDT Pharmacy to Dose - Warfarin Note PATIENT: Tito Goncalves Room/Bed: [facility] Desired INR range: 2-3 Indication(s): Atrial Fibrillation Medications: No drug interactions were identified based on the patient's current therapy. Current Diet Status: Regular Recent bleeding/bleeding event: None noted Last labs: INR Date Value Ref Range Status 03/16/2022 1.37 (H) 0.85 - 1.10 Final Comment: 2.0-3.0 THERAPEUTIC RANGE 2.5-3.5 MECHANICAL VALVE RANGE Testing performed at [place], [place] [address] - ALBUMIN Date Value Ref Range Status 03/16/2022 3.3 (L) 3.5 - 5.0 G/dl Final - Plan: An order was placed for Coumadin 7.5 mg today x 1 based on INR = 1.37. A Pharmacist will continue to follow and make dose changes as clinically appropriate. Please contact pharmacy if there are any questions. Signed: Pato Gutierrez Pharmacist Phone: [phone] Date/Time: 03/16/2022 11:46 AM * Yashira Valencia [...] 3/5) LLE WFL Supine to Sit Mobility [place] Level: Supine->Sit stand-by assist Physical Assist: Supine->Sit (1 person) Bed Features/Set-up: Supine->Sit Head of bed elevated Skilled Rationale Verbal cues;Sequencing Sit to Stand Transfer [place] Level: Sit->Stand stand-by assist Physical Assist: Sit->Stand (1 person) Assistive Device: Sit->Stand 2 wheeled walker;gait belt Skilled Rationale Verbal cues;Hand placement;Sequencing Stand to Sit Transfer [place] Level: Stand->Sit stand-by assist Physical Assist: Stand->Sit (1 person) Assistive Device: Stand->Sit 2 wheeled walker;gait belt Skilled Rationale Verbal cues;Hand placement;Sequencing;Controlled descent for sitting Sitting Balance Static Sitting-Level of Assistance Independent Standing Balance Static Standing-Level of Assistance Stand-by assist Dynamic Standing-Level of Assistance Stand-by assist Standing-Balance Support 2 wheeled walker;Gait belt Skilled Rationale Verbal cues;Full extension to upright positioning/posture;Upright gaze/neck extension Gait Assessment [place] Level: Gait contact guard assist Physical Assist: [...] ARTHROPLASTY KNEE TOTAL Left 06/23/2015 CHOLECYSTECTOMY 2012 [facility] goals, to be achieved at discharge: 1. [...] (248 lb) 02/08/18 117.9 kg (260 lb) Rogers body weight: 77.6 kg (171 lb 1.9 [...] plan. Patient plans to return home with [facility]. His daughter will be staying with him [...] Warfarin and PT/INR management. Questions answered regarding [facility], patient denies any other questions or needs at this time. Referral information with orders for PT/INR faxed to [facility], spoke with staff who confirm start of care for tomorrow. Follow up appointment scheduled for 04/08/22 @ 10:00 am. * Grupo Morgan RPh,PharmD - 03/15/2022 6:24 PM EDT Pharmacy to Dose - Warfarin Note PATIENT: Tito Goncalves Room/Bed: [facility] Desired INR range: 2-3 Indication(s): Atrial Fibrillation Last labs: INR Date Value Ref Range Status 03/15/2022 1.36 (H) 0.85 - 1.10 Final Comment: 2.0-3.0 THERAPEUTIC RANGE 2.5-3.5 MECHANICAL VALVE RANGE Testing performed at [place], [place] [address] - ALBUMIN Date Value Ref Range Status 02/18/2022 3.8 3.5 - 5.0 G/dl Final - Plan: An order was placed for 5 mg based on current Home Dosage. A Pharmacist will continue to follow and make dose changes as clinically appropriate. Please contact pharmacy if there are any questions. Signed: Grupo Morgan RPh,PharmD, Pharmacist Phone: [phone] Date/Time: 03/15/2022 6:24 PM * Samantha Miner [...] you require anything further documented in this [facility]06-21-2022 Note* Nursing Notes - Dian Roberts RN [...] anxious to head home and settle in. [facility]06-21-2022 Hospital Discharge instructions* Discharge Instructions* Kirsten [...] days or until therapeutic with results to [facility]. , Contact Office ([phone]) if: > Total Knee ROM < 90 [...] sent through Care Everywhere. * docusate (oral/rectal) (Mauritian) * oxycodone (Mauritian) documented in this encounterHolmes [facility]06-21-2022 Note* Plan of Care - Regina [...] of care. Outcome: Adequate for Discharge T [facility]06-21-2022 Note* Nursing Notes - Kirsten Crawford RN - 03/16/2022 11:39 AM EDT Assessment unchanged from previous by this nurse unless otherwise noted in flowsheet [facility]06-21-2022 Hospital course Narrative* Domenico Ferguson MD - 03/16/2022 8:54 AM EDT Images from the original note were not included. Discharge Summary Name: Tito Goncalves Age: 77 y.o. Birthday: 1945 Admit Date: 03/15/2022 8:10 AM Discharge Date: 03/16/2022 Discharge Time: 03/16/2022 Discharge Unit: [facility]patient [facility] Unit Length of Stay: [...] restless leg. Kidney stones, admitted to [facility] for elective rig ht total knee arthroplasty [...] as: COUMADIN STOP taking these medications Glucosamine-Chondroitin 9844-4224 MG/30ML LIQD Follow-up: No follow-up provider specified. Upcoming Appointments (up to five)-Some appointments for Medical Center outpatient clinics or diagnostic testing locations are not displayed below Provider Department Dept Phone 04/08/2022 10:00 AM [facility]ul [facility] [phone] Total coordination of discharge care taking greater that 35 minutes documented in this encounterHolmes [facility]06-21-2022 Note* Plan of Care - [...] Devices: pillows Note: IVÁN Hose, Foot pumps [facility] CenterCreww06-21-2022 Note* Nursing Notes - Birgit Thakur RN - 03/16/2022 3:09 AM EDT Assessment remains unchanged unless otherwise noted in flow sheet. Pt denies pain. Neuro/pulses unchanged. New bag of NS hung at this time. Vitals WDL. Pt denies any needs and call light is in reach. [facility]06-20-2022 Note* Nursing Notes - Birgit Thakur RN - 03/15/2022 11:59 PM EDT Assessment remains unchanged unless otherwise noted in flow sheet. Pt denies any pain. Neuro/pulsesunchanged. NS infusing @ 100ml/hr and Ancef administered. Pt denies any needs and call light is in reach. [facility]06-20-20[facility] Note* Nursing Notes - Birgit Thakur RN - 03/15/2022 8:06 PM EDT RT called at this time due to O2 change from 1.5 to 1L. Pt also has home CPAP/BIPAP device. RT madeaware. [facility]06-20-2022 Note* Nursing Notes - Araseli Ron RN - 03/15/2022 5:53 PM EDT Patient tolerating clear liquids at this time, diet advanced per orders. [facility]06-20-2022 Consult note* Javier-Cameron Ferguson MD - 03/15/2022 4:10 PM EDT History and Physical Examination 03/15/22 4:10 PM Chief Complaint: Right total knee arthroplasty History of Present Illness: Patient is a 77 y.o. male presents for [facility] for elective right total knee arthroplastyDrMago Bedoya [...] mg by mouth daily. Historical Provider Glucosamine-Chondroitin 2779-1864 MG/30ML Liquid Take by mouth. Historical Provider [...] 81 mg by mouth daily. 03/04/2022 Glucosamine-Chondroitin 7885-7150 MG/30ML Liquid Take by mouth. Multiple Vitamins-Minerals [...] OT, ST and SW. Domenico Ferguson MD [facility]06-20-2022 Consult note* Domenico Ferguson MD - 03/15/2022 4:10 PM EDT History and Physical Examination 03/15/22 4:10 PM Chief Complaint: Right total knee arthroplasty History of Present Illness: Patient is a 77 y.o. male presents for [facility] for elective right total knee arthroplastyDr. Foster [...] mg by mouth daily. Historical Provider Glucosamine-Chondroitin 5102-2240 MG/30ML Liquid Take by mouth. Historical Provider [...] 81 mg by mouth daily. 03/04/2022 Glucosamine-Chondroitin 3270-3247 MG/30ML Liquid Take by mouth. Multiple Vitamins-Minerals [...] SW. Domenico Ferguson MD [facility] Nursing Notes - Araseli Ron RN - 03/15/2022 2:26 PM EDT Patient to OR at this time. [facility]06-20-2022 Note* Nursing Notes - Araseli Ron RN - 03/15/2022 11:57 AM EDT Patient assessment unchanged from previous. Patient ambulated to bathroom and voided. Patient denies any needs at this time. Call light in reach. [email or web address] [id number] Note* Nursing Notes - Gini Medrano RN - 02/18/2022 1:25 PM EDT 02/18/22 0124 Information Source Information Source patient Contact Information [employer] Supervisor Name Gini Medrano RN Case Manager's [...] that he plans to return home with [facility]. The patient states that his daughter is [...] to follow and assist with discharge plans. [email or web address] [id number] History of Present illness Narrative* Luis Wang, MACHINE WOOD SANDER - 2022 1:10 PM EDT Ortho Nurse - Established Patient Intake Room#: 1 Right knee pain of 9, no interventions, falls, or injuries, came in today with left knee pain, left knee revision 2016 Dr Bedoya Date: 2022 1:06 PM Patient: Tito Goncalves MR#: [id number] : 1945 Age: 77 y.o. 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 PHYSICAL EXAM: This is an alert, [...] joint space, subchondral sclerosis, osteophyte formation, and [id number] contact with posterior loosebodies. He has a [...] of limb, and ultimately loss of life. FPC expectations, risks and general implant surv ivorship were also discussed. Despite these risks, the patient would like to proceed with surgical planning. Today, we will initiate the pre-surgical process including nasal MRSA screening, scheduling an appointment for [facility] and the potential surgical date, and reviewing [...] Swelling Sulfa Antibiotics Swelling documented in this [facility]02[facility]09[facility]2022 Evaluation note* Encounter Date Diagnosis Assessment Notes Treatment Notes Treatment Clinical Notes Oct, Choledocholithiasis (ICD-10 - K80.50) Oct, Pancreatic cyst (ICD -10 - K86.2) [facility] Other Evaluation + Plan note No data available for this section [facility] evaluation note* Diagnosis Right knee pain, unspecified chronicity- Primary Pain in prosthetic joint, sequela documented in this encounter [facility]* Diagnosis Preop testing- Primary Preoperative [...] Hyposmolality and/or hyponatremia [facility] Information[facility] Other Evaluation note* Diagnosis Hx of total knee arthroplasty, right- Primary documented in this encounter [facility] note* Diagnosis Hx of total knee arthroplasty, right- Primary documented in this encounter [facility] noteN/ADept. of Dermatology Evaluation note* Diagnosis Hx of total knee arthroplasty, right- Primary documented in this encounter [facility] foundation note* Diagnosis 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- Primary Age-related nuclear cataract of both eyes Dry eyes Unspecified tear film insufficiency [facility] Diagnosis Onset Date Resolution Status Atrial fibrillation acute Chronic kidney disease acute GERD (gastroesophageal reflux disease) acute Hemopericardium acute Hypercholesterolemia acute Hypertension acute CUBA (obstructive sleep apnea) acute [facility] Work Phone: Evaluation note* Diagnosis Onset Date Resolution Status Atrial fibrillation acute Chronic kidney disease acute Hemopericardium acute Hypertension acute Obesity acute CUBA (obstructive sleep apnea) acute Cellulitis of right upper extremity noneactive [facility] Work Phone: Evaluation note* Diagnosis Onset Date Resolution Status Atrial fibrillation acute Chronic kidney disease acute Hemopericardium acute Hypertension acute Obesity acute CUBA (obstructive sleep apnea) acute Cellulitis of right upper extremity noneactive Atrial fibrillation acute Chronic kidney disease acute Hypertension acute Obesity acute CUBA (obstructive sleep apnea) acute Type 2 diabetes mellitus with hyperglycemia acute [facility] Work Phone: [employer] general Narrative - Reported* Type Description Date Medical History hyperlipidemia Medical History GERD Medical History HTN Medical History a.fib Medical History recurrent choledocholithiasis Surgical History LEFT KNEE Surgical History CHOLECYSTECTOMY 2012 Hospitalization History see above [facility] Other History general Narrative - Reported* Type [...] stone removal 10/2022 Hospitalization History see above [facility] Other History general Narrative - Reported* Type [...] stone removal 10/2022 Hospitalization History see above [facility] Other Hisklxw general Narrative - Reported* Type Description Date [...] History Colonoscopy 2020 Hospitalization History see above [facility] Other Hospital Discharge instructions Additional Instructions 1. Sleep on 2 pillows 2. You may shower late tomorrow afternoon, keep wounds dry and clean 3. Small amount of Vaseline to sutures twice daily 4. Tylenol or Motrin for discomfort 5. See Dr. Freitas [place] [facility] Work Phone: Progress note No data available for this section [facility] reason for referral (narrative)* Name Reason for referral NA NA Dept. of Dermatology Reason for visit Narrative* Auth/Cert Specialty Diagnoses / Procedures Referred By Contольга t Referred To Contact Diagnoses Osteoarthritis of right knee, unspecified osteoarthritis type Osteoarthritis of right knee, unspecified osteoarthritis type [M17.11] Procedures AR TOTAL KNEE ARTHROPLASTY ARTHROPLASTY KNEE TOTAL Pastor Bedoya MD [address] [place] [address] Referral ID Status Reason Start Date Expiration Date Visits Re quested Visits Authorized [id number] 02/01/2022 1 1 [facility] Summary Purpose Family History No Family History [...] XR KNEE LEFT 3 VIEWS Virginie Azul, HR INTERN-GREEN PROMOTIONS SPECIALIST [address] [place] [address] Specialty Diagnoses / Procedures Referred By Contac t Referred To Contact Diagnoses Pain in prosthetic joint, sequela Procedures XR KNEE LEFT 3 VIEWS Pastor Bedoya MD [address] [place] [address] Referral ID Status Reason Start Date Expiration Date V isits Requested Visits Authorized [id number] New Request 2022 02/15/2023 1 1 Specialty Diagnoses / Procedures Referred By Contac t Referred To Contact Diagnoses Right knee pain, unspecified chronicity Procedures XR KNEE RIGHT 4+ VIEWS Pastor Bedoya MD [address] [place] [address] Referral ID Status Reason Start Date Expiration Date V isits Requested Visits Authorized [id number] New Request 01/15/2022 02/09/2023 1 1 Specialty Diagnoses / Procedures Referred By Contac t Referred To Contact Social Work Diagnoses Restless leg syndrome Stage 3a chronic kidney disease S/P total knee arthroplasty, right Paroxysmal atrial fibrillation Type 2 diabetes mellitus without complication, without long-term current use of insulin Domenico Ferguson MD [address] [place] [id number] Referral ID Status Reason Start Date Expiration Date V isits Requested Visits Authorized [id number] New Request 03/16/2022 04/10/2023 1 1 Specialty Diagnoses / Procedures Referred By Contac t Referred To Contact Diagnoses Acute postoperative pain of right knee Samantha Miner [address] [place] [address] Referral ID Status Reason Start Date Expiration Date V isits Requested Visits Authorized [id number] New Request 03/15/2022 04/09/2023 1 1 Scheduling Instructions . Specialty Diagnoses / Procedures Referred By Contac t Referred To Contact Physical Therapy Diagnoses Hx of total knee arthroplasty, right Azul Rachel APRN-CNP [address] [place] [address] [facility] [address] [place] [address] Referral ID Status Reason Start Date Expiration Date V isits Requested Visits Authorized [id number] New Request 04/08/2022 05/03/2023 1 1 Specialty Diagnoses / Procedures Referred By Contac t Referred To Contact Diagnoses Hx of total knee arthroplasty, right Procedures XR KNEE RIGHT 3 VIEWS Azul Rachel APRN-TOBI [address] [place] [address] Referral ID Status Reason Start Date Expiration Date V isits Requested Visits Authorized [id number] New Request 03/31/2022 04/25/2023 1 1 Specialty Diagnoses / Procedures Referred By Contac t Referred To Contact Diagnoses Hx of total knee arthroplasty, right Procedures XR KNEE RIGHT 3 VIEWS Pastor Bedoya MD [address] [place] [address] Referral ID Status Reason Start Date Expiration Date V isits Requested Visits Authorized [id number] New Request 07/02/2022 07/27/2023 1 1 Specialty Diagnoses / Procedures Referred By Contac t Referred To Contact Diagnoses Hx of total knee arthroplasty, right Procedures XR BONE LENGTH STUDY Pastor Bedoya MD [address] [place] [address] Referral ID Status Reason Start Date Expiration Date V isits Requested Visits Authorized [id number] New Request 07/02/2022 07/27/2023 1 1 Referral ID Status Reason Start Date Expiration Date V isits Requested Visits Authorized [id number] New Request 03/15/2023 04/08/2024 1 1 History [...] 03/20/2020 11:10 AM Patient: Tito Goncalves MR#: [id number] : 1945 Age: 75 y.o. 3 yr [...] 03/20/2020 11:10 AM Patient: Tito Goncalves MR#: [id number] : 1945 Age: 75 y.o. 3 yr [...] section and content) DATE CREATED AUTHOR 03/21/2018 [facility] DATE CREATED AUTHOR AUTHOR'S ORGANIZ ATION 06/15/2019 [facility] DATE CREATED AUTHOR AUTHOR'S ORGANIZ ATION [facility] DATE CREATED AUTHOR AUTHOR'S ORGANIZ ATION 05/04/2022 [facility] DATE CREATED AUTHOR AUTHOR'S ORGANIZ ATION 10/04/2022 [facility] Center DATE CREATED AUTHOR AUTHOR'S ORGANIZ ATION 02/02/2023 [facility] DATE CREATED AUTHOR AUTHOR'S ORGANIZ ATION 03/05/2023 [facility] DATE CREATED AUTHOR AUTHOR'S ORGANIZ ATION 03/20/2023 [facility] DATE CREATED AUTHOR AUTHOR'S ORGANIZ ATION 07/12/2023 [facility] DATE CREATED AUTHOR AUTHOR'S ORGANIZ ATION 03/06/2024 [facility] DATE CREATED AUTHOR AUTHOR'S ORGANIZ ATION 03/10/2024 [facility] EPIC DATE CREATED AUTHOR AUTHOR'S ORGANIZ ATION 03/23/2024 [facility] Reason for Visit (unrecogniz ed section and content) Reason Comments Follow-up Status Reason Specialty Diagnoses / Procedures Referred By Contact Referred To Contact New Request Diagnoses History of revision of total replacement of left knee joint Procedures XR KNEE LEFT 3 VIEWS Azul Rachel, HR INTERN-GREEN PROMOTIONS SPECIALIST [address] [place] [address] Reason Comments Pain Specialty Diagnoses / Procedures Referred By Contac t Referred To Contact Diagnoses Pain in prosthetic joint, sequela Procedures XR KNEE LEFT 3 VIEWS Pastor Bedoya MD [address] [place] [address] Referral ID Status Reason Start Date Expiration Date V isits Requested Visits Authorized [id number] New Request 2022 02/15/2023 1 1 Specialty Diagnoses / Procedures Referred By Contac t Referred To Contact Diagnoses Right knee pain, unspecified chronicity Procedures XR KNEE RIGHT 4+ VIEWS Pastor Bedoya MD [address] [place] [address] Referral ID Status Reason Start Date Expiration Date V isits Requested Visits Authorized [id number] New Request 01/15/2022 02/09/2023 1 1 Specialty Diagnoses / Procedures Referred By Contac t Referred To Contact Diagnoses Hx of total knee arthroplasty, right Procedures XR KNEE RIGHT 3 VIEWS Azul Rachel, HR INTERN-GREEN PROMOTIONS SPECIALIST [address] [place] [address] Referral ID Status Reason Start Date Expiration Date V isits Requested Visits Authorized [id number] New Request 03/31/2022 04/25/2023 1 1 Reason Comments Post Op Visit Specialty Diagnoses / Procedures Referred By Contac t Referred To Contact Diagnoses Hx of total knee arthroplasty, right Procedures XR KNEE RIGHT 3 VIEWS Pastor Bedoya MD [address] [place] [address] Referral ID Status Reason Start Date Expiration Date V isits Requested Visits Authorized [id number] New Request 07/02/2022 07/27/2023 1 1 Referral ID Status Reason Start Date Expiration Date V isits Requested Visits Authorized [id number] New Request 03/15/2023 04/08/2024 1 1 Reason Comments Retinal Injection Care Teams (unrecognized sec tion and content) 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 Relationship Specialty Start Date End Date Augustine Metz, DO [address] [facility] [place] [address] PCP - General Internal Medicine 01/24/17 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 Relationship Specialty Start Date End Date Augustine Metz DO [address] [place] [address] PCP - General Internal Medicine 01/24/17 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 Relationship Specialty Start Date End Date Augustine Metz, DO [address] [place] [address] PCP - General Internal Medicine 01/24/17 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 Relationship Specialty Start Date End Date Augustine Metz DO [address] [facility] [place] [address] PCP - General Internal Medicine 01/24/17 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 Relationship Specialty Start Date End Date Augustine Metz DO [address] [facility] [place] [address] PCP - General Internal Medicine 01/24/17 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 Relationship Specialty Start Date End Date Augustine Metz DO [address] [facility] [place] [address] PCP - General Internal Medicine 01/24/17 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 Relationship Specialty Start Date End Date Augustine Metz DO [address] [place] [address] PCP - General Internal Medicine 01/24/17 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 Relationship Specialty Start Date End Date Augustine Metz DO [address] [place] [address] PCP - General Internal Medicine 01/24/17 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 Relationship Specialty Start Date End Date Augustine Metz DO [address] [facility] [place] [address] PCP - General Internal Medicine 01/24/17 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 Relationship Specialty Start Date End Date Augustine Metz MD [address] [place] [phone] PCP - General Internal Medicine 06/02/23 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 Relationship Specialty Start Date End Date Augustine Metz MD [address] [place] [phone] PCP - General Internal Medicine 06/02/23 Team Status: Active Member Role Status Dates Augustine Mezt DO Primary Care Provider Active Team Status: [...] to the hypoglycemia management protocol on Ellucid: P-HM-Ydqdythvcvuh Management Protocol insulin regular (HumuLIN R;NovoLIN R) [...] 2 g, Intravenous, Administer over 30 Minutes, CNC MECHANIC TO PROCEDURE, 1 dose, Starting on Tue03/15/22 [...] less than 60 mg/ml. If unresponsive call MAGNETIC RESONANCE IMAGING DIRECTOR HYDROmorphone (DILAUDID) injection 0.5 mg 0.5 mg, [...] to the hypoglycemia management protocol on [employer]: E-QW-Qtgerlmqieku Management Protocol
And dextrose 10% IV solution [...] less than 60 mg/ml. If unresponsive call MAGNETIC RESONANCE IMAGING DIRECTOR
And NOTIFY PHYSICIAN, Blood Glucose LESS THAN 70 mg/dl or greater than 400 mg/dl (CANCELED) Routine, CONTINUOUS, Starting on Tue03/15/22 at 1255, Until Specified
Who to Notify: PHOTOGRAPHER'S MODEL/Physician
For all Blood Glucose LESS THAN 70 mg/dl, or greater than 400 mg/dl notify PHOTOGRAPHER'S MODEL/Physician Goals (unrecognized section and content) Goals may [...] BE BASED ON THE PRIMARY CLINICAL RECORDS. [employer] provides no warranty or guarantee of the accuracy or completeness of information in this document.
[2024-04-01 20:20] LABS: Troponin I High Sensitivity 6.7 pg/mL (4.0-76.1)
[2024-04-01] MEDS: CARVEDILOL 6.25 MG TABLET 12.5 MG PO (21:14)
[2024-04-01] MEDS: CLONAZEPAM 0.5 MG TABLET 1 MG PO (21:57)
[2024-04-01] MEDS: AMLODIPINE BESYLATE 5 MG TABLET PO (21:57)
[2024-04-01] MEDS: TRAZODONE HCL 50 MG TABLET PO (21:58)
[2024-04-02] VITALS (34 sets, daily range): BP systolic 123–137; BP diastolic 64–68; PULSE 56–73; TEMP 36.5–36.6; O2SAT 92–100
[2024-04-02 04:58] LABS: Basophils Percent Auto 0.6 % (0.2-2.0); Eosinophils Absolute Auto 0.2 10^3/uL (0.0-0.7); Eosinophils Percent Auto 3.3 % (0.9-7.0); Hematocrit 32.6 % (42.0-54.0); Hemoglobin 10.3 g/dL (14.0-18.0); Immature Granulocytes Abs Auto 0.01 10^3/uL (0.00-0.03); Immature Granulocytes Pct Auto 0.2 % (0.0-0.5); Lymphocytes Absolute Auto 1.7 10^3/uL (1.2-3.8); Lymphocytes Percent Auto 32.6 % (20.5-60.0); Mean Corpuscular HGB Conc 31.6 g/dL (29.9-35.2); Mean Corpuscular Hemoglobin 27.8 pg (25.9-34.0); Mean Corpuscular Volume 87.9 fL (80.0-94.0); Mean Platelet Volume 12.5 fL (9.5-13.5); Monocytes Absolute Auto 0.7 10^3/uL (0.3-0.8); Monocytes Percent Auto 12.9 % (1.7-12.0); Neutrophils Absolute Auto 2.6 10^3/uL (1.4-6.5); Neutrophils Percent Auto 50.4 % (43.0-75.0); Platelet Count 139 10^3/uL (150-450); Red Blood Count 3.71 10^6/uL (4.70-6.10); Red Cell Distribution Width 13.9 % (11.0-15.0); White Blood Count 5.2 10^3/uL (4.0-11.0)
[2024-04-02 05:24] LABS: Alanine Aminotransferase 14 U/L (16-63); Albumin Globulin Ratio 0.9; Albumin Level 2.8 g/dL (3.4-5.0); Alkaline Phosphatase 76 U/L (46-116); Anion Gap 11.2; Aspartate Amino Transferase 11 U/L (15-37); BUN Creatinine Ratio 11.4; Bilirubin Total 0.4 mg/dL (0.2-1.0); Calcium 8.4 mg/dL (8.5-10.1); Carbon Dioxide 28.1 mmol/L (21.0-32.0); Chloride 107 mmol/L (98-107); Estimated GFR (African America 59 (>=60); Estimated GFR (Non-African Ame 49 (>=60); Glucose 141 mg/dL (74-106); Potassium 4.3 mmol/L (3.5-5.1); Sodium 142 mmol/L (136-145); Total Protein 5.8 g/dL (6.4-8.2); Troponin I High Sensitivity 7.8 pg/mL (4.0-76.1)
[2024-04-02] MEDS: ASPIRIN 81 MG TABLET.DR PO (08:29)
[2024-04-02] MEDS: LISINOPRIL 20 MG TABLET PO (08:29)
[2024-04-02] MEDS: CARVEDILOL 12.5 MG TABLET PO (08:29)
[2024-04-02] MEDS: OMEPRAZOLE 20 MG CAPSULE.DR PO (08:29)
[2024-04-02] MEDS: CLOPIDOGREL BISULFATE 75 MG TABLET PO (08:30)
[2024-04-02] MEDS: AMIODARONE HCL 200 MG TABLET PO (08:30)
--- NOTE | 2024-04-02 10:49 | SWNOTE1 ---
SW met with pt to discuss dc needs. Pt lives at home alone. Pt is independent at home and has no anticipated discharge needs. Pt is being discharged today and driving himself home. SW to follow as needed. Medicare Outpatient Observation Notice reviewed and discussed with patient. Pt. verbalized understanding and signed the form. Original given to patient and copy placed in patient?s chart.
--- NOTE | 2024-04-02 11:18 | P.HP_ITS ---
<Statement entered by Artemio Ch MD - 04/02/24 19:27> Patient seen and examined, agree with assessment and plan below. Presented with chest pain that was reproducible and seemed muscular. Reports recent activity and swept garage. CE negative and EKG without change. Discharged home and may need outpatient stress test. Diagnosis: 1. Chest pain 2. Paroxysmal afib 3. History of Watchman device 4. DM2 5. HTN 6. CKD 3a HPI H&P: HPI History of Present Illness Chief complaint: CHEST PAIN Narrative: 04/02/24 0430 This is a 79-year-old male patient with a past medical history as outlined below including CKD stage IIIa, HTN, DM type II, paroxysmal A-fib s/p Watchman device placement with associated pericardial effusion, and history of traumatic brain bleed; who presented to the ED yesterday complaining of chest pain. He reports onset of chest discomfort on Tuesday afternoon which was much worse on Tuesday. He noted that it was occurring with every breath and made him feel short of breath. He presented to the ED for further evaluation. Workup in the ED revealed unremarkable lab findings. His renal function is consistent with his baseline CKD 3a. An EKG revealed sinus rhythm with nonspecific T wave abnormality. Serial troponins were negative x 2 in the ED, and a chest x-ray revealed no acute disease. He was admitted in observation to the hospitalist service for chest pain rule out and continued serial cardiac monitoring. At the time of my exam this morning the patient is resting in bed comfortably and denies any chest pain at all. On further discussion it is revealed that the patient worked in his garage all of Tuesday morning with significant amount of sweeping and moving items around in his garage. As his chest discomfort was in the high anterior area of his chest and was pleuritic in nature, we clinically suspect musculoskeletal source of his discomfort. Cardiac enzymes remain completely negative overnight. As the patient has recently had a cardiac workup by his outpatient packaging mechanic, 2D echo and stress test are not currently indicated. He is being discharged home in stable condition without any new prescriptions. He should follow-up with his packaging mechanic within a month and consider repeat stress test pending their recommendations. Opioid HPI Opioid Management Most Recent Pain and Opioid Data: Last Pain Scale 0 04/02/24 07:00 Last Pain Assessment 04/02/24 11:00 Last ORT Total Score 0 04/01/24 19:21 Last ORT Risk Category Low Risk 04/01/24 19:21 Review of Systems ROS Status of ROS 10 or more systems reviewed and unremark able except as noted in history and below [facility] Medical History (Updated 04/02/24 @ 11:22 by Lori Chen NP) CKD stage 3a, GFR 45-59 ml/min ?N18.31 - Chronic kidney disease, stage 3a (ICD-10) Benign essential hypertension ?I10 - Essential (primary) hypertension (ICD-10) Diabetes mellitus ?E11.9 - Type 2 diabetes mellitus without complications (ICD-10) Paroxysmal atrial fibrillation ?I48.0 - Paroxysmal atrial fibrillation (ICD-10) Presence of Watchman left atrial appendage closure device ?Z95.818 - Presence of other cardiac implants and grafts (ICD-10) HTN (hypertension) ?I10 - Essential (primary) hypertension (ICD-10) Brain bleed ?I61.9 - Nontraumatic intracerebral hemorrhage, unspecified (ICD-10) High cholesterol ?E78.00 - Pure hypercholesterolemia, unspecified (ICD-10) Melanoma ?C43.9 - Malignant melanoma of skin, unspecified (ICD-10) H/O cardiovascular stress test ?Z92.89 - Personal history of other medical treatment (ICD-10) History of cardioversion ?Z92.89 - Personal history of other medical treatment (ICD-10) 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 - 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, initial encounter (ICD-10) Atrial fibrillation ?I48.91 - Unspecified atrial fibrillation (ICD-10) Surgical History (Updated 04/02/24 @ 05:23 by Caren Rapp) 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) History of ERCP ?Z98.890 - Other specified postprocedural states (ICD-10) History of colonoscopy ?Z98.890 - Other specified postprocedural states (ICD-10) History of knee replacement ?Z96.659 - Presence of unspecified artificial knee joint (ICD-10) History of lateral meniscus repair of left knee ?Z98.890 - Other specified postprocedural states (ICD-10) Family History (Updated 04/01/24 @ 20:20 by Caren Rapp) Father Family history of CHF (congestive heart failure) Family history of hypertension Mother Family history of cancer Family history of hypertension Grandmother Family history of diabetes mellitus Other Family history of myocardial infarction Social History (Updated 04/01/24 @ 20:21 by Caren Rapp) Within the past year, how often did you have a drink containing alcohol: never Score interpretation: A score less than 4 is consistent with normal alcohol consumption. Smoking status: Never smoker Non-prescribed substance use: denies use Highest level of school completed/degree received: high school graduate Are you now , , , , never or living with a partner: Little interest or pleasure in doing things: not at all Feeling down, depressed, or hopeless: not at all Feel stressed/tense/nervous/anxious/difficulty sleeping: not at all Do you think of yourself as: straight/heterosexual Gender Identity: male Meds Home Medications and Allergies Home Medications ?Medication ?Instructions ?Recorded ?Confirmed ?Type amlodipine 10 mg tablet 5 mg PO .nightly 07/05/23 04/01/24 History aspirin 81 mg tablet,delayed 81 mg PO DAILY 07/05/23 04/01/24 History release (Adult Aspirin Regimen) atorvastatin 10 mg tablet (Lipitor) 10 mg PO DAILY 07/05/23 04/01/24 History benazepril 20 mg tablet 20 mg PO DAILY 07/05/23 04/01/24 History carvedilol 6.25 mg tablet 12.5 mg PO BID 07/05/23 04/01/24 History clonazepam 1 mg tablet 1 mg PO .nightly 07/05/23 04/01/24 History omeprazole 20 mg capsule,delayed 20 mg PO DAILY 07/05/23 04/01/24 History release trazodone 50 mg tablet 50 mg PO .nightly 07/05/23 04/01/24 History amiodarone 200 mg tablet 200 mg PO DAILY 04/01/24 04/01/24 History clopidogrel 75 mg tablet 75 mg PO DAILY 04/01/24 04/01/24 History Allergies Allergy/AdvReac Type Severity Reaction Status Date / Time iodine Allergy Hives Verified 04/01/24 15:30 Penicillins Allergy Unknown Verified 04/01/24 15:30 Sulfa (Sulfonamide Allergy Unknown Verified 04/01/24 15:30 Antibiotics) Exam Constitutional Vital Signs, click to edit/add: Last Vital Signs Temp 97.7 F 04/02/24 07:04 Pulse 68 04/02/24 10:00 Resp 16 04/02/24 08:00 BP 137/68 04/02/24 07:04 Pulse Ox 92 L 04/02/24 07:04 O2 Del Method Room Air 04/01/24 19:21 Common normals: no apparent distress, oriented x3, alert and well nourished General appearance: cooperative Orientation/consciousness: Yes awake HENMT Common normals: normocephalic, head/scalp atraumatic, hearing grossly normal bilaterally, external nose normal and moist oral mucous membranes Eye Common normals: PERRL, EOMs intact bilaterally, conjunctivae normal and no scleral icterus Alignment: alignment normal Eyelid: eyelids normal Neck & C-Spine Common normals: full ROM, supple and no JVD Chest Common normals: inspection of chest normal Chest: symmetrical chest wall rise Respiratory Common normals: normal respiratory effort, no retractions, no use of accessory muscles and clear to auscultation bilaterally Effort & inspection: able to speak in complete sentences Cardio Common normals: no JVD, regular rate, regular rhythm, S1 normal heart sound, S2 normal heart sound, no gallops, no clicks, no rub and peripheral pulses 2+ throughout Heart sounds: murmur (HSM 2/6) Peripheral pulses: pulses 2+ throughout GI Common normals: Normal to inspection, nondistended, normoactive bowel sounds present, soft to palpation, non-tender, no hepatosplenomegaly, no masses and no bruits Bladder/kidney exam: bladder normal to palpation Back & Pelvis Common normals: thoracic and lumbar spine normal to inspection Extremity Common normals: normal capillary refill General: normal exam except as noted and edema (Tr bilat insteps); no clubbing and no cyanosis Neuro Vikas Coma Scale: GCS not evaluated Common normals: CN's II-XII intact bilaterally, moves all extremities, no focal motor deficits and no sensory deficits noted Speech: speech normal Motor exam: strength 5/5 throughout Psych Common normals: mental status grossly normal, thought process normal, affect normal and activity/motor behavior normal Results Labs Labs: Short CBC 04/01/24 04/02/24 Range/Units 16:00 04:11 WBC 6.2 5.2 (4.0-11.0) 10^3/uL Hgb 11.1 L 10.3 L (14.0-18.0) g/dL Hct 35.6 L 32.6 L (42.0-54.0) % Plt Count 152 139 L (150-450) 10^3/uL BMP 04/01/24 04/02/24 16:00 04:11 Sodium 138 142 Potassium 4.2 4.3 Chloride 102 107 Carbon Dioxide 26.5 28.1 BUN 18.0 16.0 Creatinine 1.56 H 1.40 H Glucose 234 H 141 H Calcium 8.5 8.4 L Liver Function 04/01/24 04/02/24 Range/Units 16:00 04:11 Total Bilirubin 0.4 0.4 (0.2-1.0) mg/dL AST 12 L 11 L (15-37) U/L ALT 19 14 L (16-63) U/L Alkaline Phosphatase 91 76 (46-116) U/L Albumin 3.3 L 2.8 L (3.4-5.0) g/dL Pulse Oximetry Attestation: I have reviewed the pertinent pulse oximetry results. ECG Attestation: ?I have reviewed the pertinent ECG results. Interpretation: Sinus rhythm Nonspecific T wave abnormality Borderline ECG Paired to ECG from 11/01/2021 Sinus tachycardia is no longer present Imaging Chest x-ray: Attestation: I have reviewed the pertinent imaging results. Radiologist's impression: IMPRESSION: Stable chest x-ray, no acute findings. Clear lungs. Assessment and Plan Assessment and Plan (1) Chest pain: Assessment and Plan: Acute - Atypical * Adm observation * Serial troponins - neg x 4 * EKG unremarkable * Recent 2D Echo (February 2024) and stress test (2020) * Defer to outpatient cardiology if repeat stress test is indicated at this time * Strongly suspect [facility]K chest discomfort * D/C home in stable condition (2) CKD stage 3a, GFR 45-59 ml/min: Assessment and Plan: Chronic * Stable at baseline (3) Benign essential hypertension: Assessment and Plan: Chronic * Continue home amlodipine, benazepril, carvedilol (4) Paroxysmal atrial fibrillation: Assessment and Plan: Chronic * Continue home coreg & amiodarone for rate control * Continue home Plavix - not currently on full anticoagulation (5) High cholesterol: Assessment and Plan: Chronic * Continue home statin (6) Presence of Watchman left atrial appendage closure device:
--- NOTE | 2024-04-02 12:10 | CM.NOTE ---
Rounds made with Dr. Ch. Dr. Ch discussed labs and plan for discharge today as well as Tito needs to followup with his special procedures nurse as they may want a stress test in the near future. Tito verbalized understanding.
--- NOTE | 2024-04-03 13:21 | CM.DCFOLLOWU ---
Person spoke with: patient How are you feeling? well How is your pain? none Did you understand your discharge instructions? yes Do you have any questions about your discharge instructions? no Were you given any prescriptions at discharge? no Were you able to get your prescriptions filled? N/A Do you understand how to take your medications as ordered? yes Do you have any questions about your follow up appointment and do you plan to keep your follow up appointment? no questions, scheduled follow up with Dr. Frost tomorrow. Is there anything else that you would like to discuss? no Questions/Comments/Concerns/Other: none
== END 2024-04-02 11:55 | disposition home or self-care (01) ==
LOC: ER 17:41 → ICU 04-02 11:17
PROVIDERS: Physician Assistant; Admitting Provider Family Medicine; Emergency Provider Emergency Medicine; PCP Internal Medicine; Visit Provider Nurse Practitioner
DX: R07.9 Chest pain, unspecified (principal); I48.0 Paroxysmal atrial fibrillation; E11.22 Type 2 diabetes mellitus with diabetic chronic kidney disease; I12.9 Hypertensive chronic kidney disease with stage 1 through stage 4 chronic kidney disease, or unspecified chronic kidney disease; N18.31 Chronic kidney disease, stage 3a; E78.00 Pure hypercholesterolemia, unspecified; R06.02 Shortness of breath; Z95.818 Presence of other cardiac implants and grafts
CPT/HCPCS: 36415; 71045; 80053; 83880; 84484; 85025; 85610; 86850; 86900; 86901; 93005; 99285; G0378

== ENCOUNTER 2024-04-13 07:10 | Outpatient (OUT) | payer MEDICARE, OTHER, SELFPAY ==
--- OUTSIDE RECORDS SUMMARY | 2024-04-13 07:13 | XMS_ITS | CCD ---
Author Organization [facility] Care Team Providers Care Top Ironer Name Role Phone GENE FAJARDO Admitting Unavailable GENE FAJARDO Attending Unavailable AUGUSTINE METZ Primary Care Unavailable RYAN CARDENAS Referring Unavailable Augustine Metz Primary Care Provider Augustine Metz DO Primary Care Provider Augustine Metz DO Primary Care Provider Carmen Kahn Unavailable AUGUSTINE METZ Primary Care Physician Augustine Metz DO Primary Care Provider [phone] Damari Rojas Unavailable Unavailable Alyssa, Osman Delmis Referring Unavaila natasha Bui, Dr. [...] BALL, DR PEREZ Primary Care Unavailable Ball DOAugustine Primary Care Provider VIRGINIE, AZUL Attending Unavailable VIRGINIE, AZUL Referring Unavailable BALL, AUGUSTINE Primary Care Unavailable VIRGINIE, AZUL Attending Unavailable VIRGINIE, AZUL Referring Unavailable BALL, AUGUSTINE Primary Care Unavailable VIRGINIE, AZUL Attending Unavailable VIRGINIE, AZUL Referring Unavailable BALL, AUGUSTINE Primary Care Unavailable SELF, SELF Referring Unavailable BALL, AUGSUTINE Primary Care Unavailable PASTOR BEDOYA Attending Unavailable PASTOR BEDOYA Referring Unavailable BALL, AUGUSTINE Primary Care Unavailable PASTOR BEDOYA Attending Unavailable VIRGINIE, AZUL Attending Unavailable SELF, SELF Referring Unavailable BALL, AUGUSTINE Primary Care Unavailable Ball, Augustine Primary Care Unavailable Colin Song Admitting Unavailab Colin Tong Attending Unavailab Augustine Ruby MD Primary Care Provider DO Augustine Metz Primary Care Provider DO Augustine Fretias Attending Provider Augustine Freitas Attending Unavailable Augustine Freitas Admitting Unavailable Isaías, Augustine Primary Care Unavailable Isaías, Augustine Primary Care Unavailable Augustine Freitas Attending Unavailable Augustine Freitas Admitting Unavailable RAJESH, LIONEL Referring Unavailable RAJESH, LIONEL Referring Unavailable RAJESH, LIONEL Referring Unavailable MOUKAOLIVER HUITRON Referring Unavailable RAJESH, LIONEL Referring Unavailable BRIGITTE PERRY Referring Unavailab le MOUKAOLIVER HUITRON Referring Unavailable MOUKARBELOLIVER Referring Unavailable MOUKARBELOLIVER Referring Unavailable ELTAHAWY, EHAB Attending Unavailable MADISON PAUL Referring Unavailable MOUKARBOLIVER RAWLS Attending Unavailable MADISON APUL Attending Unavailable OLIVER CRANE Attending Unavailable RAJESH, LIONEL Referring Unavailable MADISON PAUL Referring Unavailable MOUKARBOLIVER RAWLS Admitting Unavailable DORI RHODES Attending Unavailable OLIVER CRANE Referring Unavailable MOUKAOLIVER HUITRON Admitting Unavailable MOUKAOLIVER HUITRON Attending Unavailable JOSE R DODD Attending Unavailable JOSE R DODD Attending Unavailable OSMAN SHAH Attending Unavailable CHRISTIN BOLTON Attending Unavailable AUGUSTINE FREITAS Attending Unavailable CHRISTIN BOLTON Referring Unavailable JOSE R DODD Attending Unavailable AUGUSTINE FREITAS Attending Unavailable JOSE R DODD Attending Unavailable AUGUSTINE FREITAS Attending Unavailable JOSE R DODD Attending Unavailable JOSE R DODD Attending Unavailable AUGUSTINE FREITAS Attending Unavailable CHRISTIN BOLTON Referring Unavailable Allergies Allergy Classification Reported Allergen(s) Allergy Type Date of Onset Reaction(s) Facility Iodine (and Iodine containting drugs) (1 source) Iodine Drug Allergy 04-04-20 Unknown Reaction [facility] Penicillins (antibiotic) (1 source) Penicillins Drug Allergy 04-04-20 [facility] Shellfish (2 sources) Shellfish Food Allergy 04-04-20 Unknown Reaction [facility] Sulfonamides (antibiotic) (1 source) Sulfonamides (Antibiotic) Drug Allergy 04-04-20 Swelling [facility] (16 sources) Iodine; Translations: [iodine] Drug Allergy 08-31-20 09 Unknown, Unknown Reaction [facility] (7 sources) Penicillins; Translations: [PENICILLINS] Drug allergy (disorder) 08-01-19 63 Unknown Reaction, Hives [facility] (7 sources) Sulfonamides (Antibiotic); Translations: [SULFA (SULFONAMIDE ANTIBIOTICS)] Drug allergy (disorder) 08-31-19 93 Swelling [facility] (2 sources) Shellfish Containing Products; Translations: [Shellfish Containing Products] Food allergy (disorder) 08-31-20 09 [facility] (16 sources) Iodine; Translations: [iodine] Drug Allergy 08-31-20 09 Swelling, Unknown (qualifier value), [facility] Penicillin G Drug Allergy 10-20-19 13 Hives [facility] (14 sources) Shellfish Propensity to adverse reactions to drug 08-31-20 09 Swelling, Other [facility] (12 sources) Sulfonamides (Antibiotic) Propensity to adverse reactions to drug 10-20-19 13 Swelling [facility] [employer] (11 sources) Penicillins (Antibiotic) Drug allergy Unknown [employer] Other (15 sources) Shrimp product Propensity to adverse reactions 01-31-20 24 Unknown, Unknown Reaction [facility] (11 sources) Sulfonamides (Antibiotic) Drug allergy Unknown [facility] [employer] Other (5 sources) Penicillin; Translations: [penicillin] Drug Allergy Unknown (qualifier value) [facility] (1 source) Sulfonamides (Antibiotic); Translations: [sulfa drugs] Drug allergy Unknown (qualifier value) [facility] (1 source) No Alert Propensity to adverse reactions to drug 09-14-20 22 [facility] (1 source) Penicillin Drug Allergy 10-01-19 [facility] (1 source) Propensity to adverse reactions to drug 10-01-19 23 [facility] (1 source) Iodine Drug Allergy 08-30-20 13 [facility] (1 source) Shellfish Drug allergy (disorder) 08-30-20 13 [facility] (4 sources) sulfADIAZINE Drug Allergy Unknown [facility] [employer] Other (6 sources) Substance with sulfonamide structure and antibacterial mechanism of action (substance) Drug allergy 08-31-19 93 Rash, Swelling [facility] [employer] Other (1 source) sulfa drug; Translations: [sulfa drug] Propensity to adverse reactions to drug (disorder) [facility] (2 sources) Penicillin V Drug Allergy 01-23-20 23 [facility] (2 sources) Penicillins Drug Allergy 08-01-19 63 Hives [facility] (2 sources) Other Allergy to substance 06-30-20 23 Other [facility] (2 sources) Shellfish-Derived Products Drug Allergy 10-20-19 13 Swelling [facility] (5 sources) Shellfish; Translations: [shellfish derived] Allergy to substance 01-31-20 24 Unknown Reaction [facility] (1 source) Iodine Drug Allergy 02-27-20 [facility] (1 source) Penicillins Drug allergy (disorder) 02-27-20 [facility] (1 source) Shrimp product Drug allergy (disorder) 02-27-20 [facility] (1 source) Sulfonamides (Antibiotic) Drug allergy (disorder) 02-27-20 [facility] Repository Medications Current Medications Medication Drug [...] 04/27/21 Status: Ordered take 2 tablets by [facility] every eight hours Tylenol 8 Hour 650 MG 2 tablets as needed Orally every 8 hrs Active amiodarone hydrochloride 200 mg oral tablet (5 sources) Antiarrhythmic Start: 01-31-2024 take 200 mg by mouth once daily Amiodarone Active 200 MG PO Daily January 31, 2024 12:00am amLODIPine 5 mg oral tablet (20 sources) Dihydropyridine Calcium Channel Dominic Start: 02-28-2024 take 5 mg by mouth once daily Amlodipine Active 5 MG PO Daily February 28, 2024 12:00am Start: 03-16-2022 End: 03-16-2022 amLODIPine (NORVASC) tablet [...] Aggregation Inhibitor, Nonsteroidal Anti-inflammatory Drug Start: 10-01-2022 [id number] Medication aspirin aspirin 300 mg 10/01/2022 Active [...] (20 sources) alpha-Adrenergic Dominic, beta-Adrenergic Dominic Start: 04-04-2024 take 6.25 mg by mouth twice daily Carvedilol Active 6.25 MG PO Twice daily 180 90 April 04, 2024 11:39am Start: 01-31-2024 End: 04-04-2024 take 12.5 mg by mouth twice daily Carvedilol Discontinued 12.5 MG PO Twice daily January 31, 2024 12:00am April 04, 2024 11:40am Start: 03-15-2022 End: 03-16-2022 take 6.25 mg by mouth every twelve hours 6.25 mg, Oral, EVERY 12 HOURS, First dose on Tue03/15/22 at 2100, Until Discontinued Start: 09-24-2019 End: [id number] Medication carvedilol 6.25 mg tablet carvedilol 6.25 mg tablet 6.25 mg 07/28/2022 Active (Outside) take 1 tablet by wendy th every [...] cancel msg)) clopidogrel 75 mg oral tablet (5 sources) P2Y12 Platelet Inhibitor Start: 01-31-2024 take [...] AREDS PO) Take by mouth. 0 Active Multivitamin-Industrial Maintenance Repairer als-Lutein (A Thru Z High Potency) tablet (5 sources) Start: 11-10-2021 take 1 tablet by mouth twice daily Multivitamin-Mine rals-Lutein (A Thru Z High Potency) tablet Active 1 TAB PO Twice daily November 10, 2021 1:00am Start: 11-10-2021 take 1 tablet by wendy th once daily Zmhbuoscpzyj-Cicomuhd-Vuqxpx (A Thru Z H igh Potency) tablet Active 1 TAB PO Daily November 10, 2021 1:00am omeprazole 20 mg delayed release oral capsule (20 sources) Proton Pump Inhibitor Start: 12-27-2017 take 20 mg by mouth once daily Omeprazole Active 20 MG PO Daily November 10, 2021 1:00am primidone 250 mg oral tablet (1 source) Anti-epileptic Agent Start: 08-21-2022 [id number] Medication omeprazole 20 mg capsule,delayed release omeprazole 20 mg capsule,delayed release 20 mg 08/21/2022 Active (Outside) therapeutic multivitamin-minera ls tablet (7 sources) Start: 03-15-2022 take 1 tablet by mouth at bedtime therapeutic multivitamin-financial examiner als tablet Take 1 tablet by [...] XL docusate sodium 50 mg / sennosides, shelter 8.6 mg oral tablet (1 source) Start: 03-15-20 End: 03-16-20 senna-docusate (SENOKOT-S) 8.6-50 MG per tablet 2 tablet doxycycline hyclate 100 mg oral capsule (5 sources) Tetracycline-clas s Drug Start: 01-31-20 End: 02-16-20 take 100 mg by mouth twice daily Doxycycline Hyclate Discontinued 100 MG PO Twice daily 14 January 31, 2024 12:00am February 16, 2024 4:13pm [...] 31, 2024 3:31pm 7.5mg on Sat. 5mg H-[id number]-F Start: 01-02-2018 warfarin 5 MG tablet 1 tablet. 0 01/02/2018 Active Start: 01-02-2018 warfarin 5 MG tablet 7 mg. Tuesday and Tuesday 7.5 mg, S,M,W,THUR,F 5 mg daily 0 01/02/2018 Active Warfarin 5mg 5 m g 1 tablet orally MWFSS Active Warfarin Sodium Active zolpidem tartrate 5 [...] subarachnoid hemorrhage, unspecified] Chronic Biliary tract disease (16 sources) Obstruction of bile duct; Translations: [Obstruction of bile duct] 09-07-2023 Chronic Biliary tract disease (19 sources) Gallstone; Translations: [Calculus of gallbladder without [...] heart failure] Chronic Deficiency and other anemia (10 sources) Anemia; Translations: [Anemia, unspecified] 04-04-2024 Episodic Deficiency and other anemia (2 sources) Anemia, unspecified; Translations: [Anemia, unspecified] Onset: 2 04-04-2024 Episodic Diabetes mellitus with complications (20 sources) Hyperglycemia due to type 2 diabetes [...] STEPS INIT] Onset: 3 Episodic Esophageal disorders (19 sources) Gastroesophageal reflux disease without esophagitis; Translations: [...] other parts of face Onset: 3 Chronic Nonspecific chest pain (2 sources) Chest pain; Translations: [Chest pain, unspecified] 04-03-2024 Episodic Osteoarthritis (20 sources) Osteoarthritis of right knee joint; Translations: [Unilateral primary osteoarthritis, right knee] Onset: 3 Chronic Other aftercare (9 sources) Long-term current use of anticoagulant; Translations: [nursing home (current) use of anticoagulants] Episodic Other aftercare (2 sources) terminal make up operator (current) use of anticoagulants; Translations: [REEL STRIPPER CURRNT USE ANTICOAGULANTS] Onset: 3 Episodic Other aftercare (5 sources) Encounter for therapeutic drug level monitoring; Translations: [ENC THERAPEUTC DRUG LEVL MONITORING] Onset: 3 Episodic Other aftercare (1 source) terminal make up operator (current) 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; Translations: [REEL STRIPPER CURRENT USE OF ASPIRIN] Onset: 3 Episodic Other aftercare (1 source) Other m[facility]p (current) drug therapy; Translations: [OTH CUSTODIAL CURRENT DRUG THERAPY] Onset: 3 Episodic Other [...] nutritional; endocrine; and metabolic disorders (4 sources) Obesity; Translations: [Obesity, unspecified] 01-31-2024 Chronic Other nutritional; endocrine; and metabolic disorders (6 sources) Obesity, unspecified; Translations: [Obesity, unspecified] 01-31-2024 [...] caused by tuberculosis or sexually transmitted disease) (10 sources) Hemopericardium; Translations: [Hemopericardium, not elsewhere classified] 01-30-2024 Episodic Residual codes; unclassified (9 sources) Periodic limb movement disorder; Translations: [Periodic limb movement disorder] Chronic Residual codes; unclassified (14 sources) Obstructive sleep apnea syndrome; Translations: [Obstructive sleep apnea (adult) (pediatric)] 01-30-2024 Chronic Residual codes; unclassified (11 sources) Obstructive sleep apnea (adult) (pediatric); Translations: [...] sepsis] Episodic Skin and subcutaneous tissue infections (4 sources) Cellulitis of right upper limb; Translations: [...] kidney disease (3 sources) Chronic kidney disease Diabetes mellitus without complication (3 sources) Glycosuria; [...] Test Name Value Interpretation Reference Range Facility Basophils Auto (Bld) [#/Vol] on 04-02-2024 Basophils (Bld) [#/Vol] 0.0 10 3/uL 0.0-0.1 [facility] Basophils/100 WBC Auto (Bld) on 04-02-2024 Basophils/100 WBC (Bld) 0.6 % 0.2-2.0 [facility] Eosinophils/100 WBC Auto (Bl d)on 04-02-2024 Eosinophils/100 WBC (Bld) 3.3 % 0.9-7.0 [facility] Erythrocyte distribution wid th Auto (RBC) [Ratio]on 04-02-2024 Erythrocyte distribution width (RBC) [Ratio] 13.9 % 11.0-15.0 [facility] Estimated glomerular filtrat ion rate (GFR) non- Americanon 04-02-2024 GFR/1.73 sq M.predicted among non-blacks MDRD (S/P/Bld) [Vol rate/Area] 49 mL/min/{1.73_m2} Low >=60 [facility] Globulin Calc (S) [Mass/Vol] on 04-02-2024 Globulin (S) [Mass/Vol] 3.0 g/dL [facility] Hematocrit Auto (Bld) [Volum e fraction]on 04-02-2024 Hematocrit (Bld) [Volume fraction] 32.6 % Low 42.0-54.0 [facility] Hemoglobin [Mass/volume] in Bloodon 04-02-2024 Hemoglobin (Bld) [Mass/Vol] 10.3 g/dL Low 14.0-18.0 [facility] Laboratory - Chemistry and C hemistry - challengeon 04-02-2024 Albumin [Mass/Vol] 2.8 g/dL Low 3.4-5.0 [facility] ALP [Catalytic activity/Vol] 76 U/L 46-116 [facility] ALT [Catalytic activity/Vol] 14 U/L Low 16-63 [facility] AST [Catalytic activity/Vol] 11 U/L Low 15-37 [facility] Bilirubin [Mass/Vol] 0.4 mg/dL 0.2-1.0 [facility] Calcium [Mass/Vol] 8.4 mg/dL Low 8.5-10.1 [facility] Chloride [Moles/Vol] 107 mmol/L 98-107 [facility] CO2 [Moles/Vol] 28.1 mmol/L 21.0-32.0 [facility] Creatinine [Mass/Vol] 1.40 mg/dL High 0.70-1.30 [facility] GFR/1.73 sq M.predicted MDRD (S/P/Bld) [Vol rate/Area] 59 mL/min/{1.73_m2} Low >=60 [facility] Glucose [Mass/Vol] 141 mg/dL High 74-106 [facility] Potassium [Moles/Vol] 4.3 mmol/L 3.5-5.1 [facility] Protein [Mass/Vol] 5.8 g/dL Low 6.4-8.2 [facility] Sodium [Moles/Vol] 142 mmol/L 136-145 [facility] Urea nitrogen [Mass/Vol] 16.0 mg/dL 7.0-18.0 [facility] Urea nitrogen/Creatinine [Mass ratio] 11.4 mg/mg [facility] Laboratory - Hematology and Cell countson 04-02-2024 Immature granulocytes/100 WBC (Bld) 0.2 % 0.0-0.5 [facility] Leukocytes [#/volume] correc iván for nucleated erythrocytes in Blood by Automated counon 04-02-2024 WBC corrected for nucl RBC Auto (Bld) [#/Vol] 5.2 10 3/uL 4.0-11.0 [facility] Lymphocytes Auto (Bld) [#/Vo l]on 04-02-2024 Lymphocytes (Bld) [#/Vol] 1.7 10 3/uL 1.2-3.8 [facility] Lymphocytes/100 WBC Auto (Bl d)on 04-02-2024 Lymphocytes/100 WBC (Bld) 32.6 % 20.5-60.0 [facility] MCH Auto (RBC) [Entitic mass ]on 04-02-2024 MCH (RBC) [Entitic mass] 27.8 pg 25.9-34.0 [facility] MCHC Auto (RBC) [Mass/Vol]on 04-02-2024 MCHC (RBC) [Mass/Vol] 31.6 g/dL 29.9-35.2 [facility] MCV Auto (RBC) [Entitic vol] on 04-02-2024 MCV (RBC) [Entitic vol] 87.9 fL 80.0-94.0 [facility] Monocytes Auto (Bld) [#/Vol] on 04-02-2024 Monocytes (Bld) [#/Vol] 0.7 10 3/uL 0.3-0.8 [facility] Monocytes/100 WBC Auto (Bld) on 04-02-2024 Monocytes/100 WBC (Bld) 12.9 % High 1.7-12.0 [facility] Neutrophils Auto (Bld) [#/Vo l]on 04-02-2024 Neutrophils (Bld) [#/Vol] 2.6 10 3/uL 1.4-6.5 [facility] Neutrophils/100 WBC Auto (Bl d)on 04-02-2024 Neutrophils/100 WBC (Bld) 50.4 % 43.0-75.0 [facility] No Panel Informationon 04-02 Eosinophils # (Auto) 0.2 10 3/uL 0.0-0.7 [facility] Immature Granulocyte # (Auto) 0.01 10 3/uL 0.00-0.03 [facility] Troponin I High Sensitivity 7.8 pg/mL 4.0-76.1 [facility] Comment on above: CUT-OFF POINTS HAVE BEEN ESTABLISHED BASED ON THE FOURTHUNIVERSAL DEFINITION OF MYOCARDIAL INFARCTION. THE UPPERREFERENCE LIMIT (URL) OF TROPONIN, DEFINED THE 99THPERCENTILE OF cTnI DISTRIBUTION IN A REFERENCE POPULATION,HAS BEEN CONFIRMED THE DECISION THRESHOLD FOR MIDIAGNOSIS.99TH PERCENTILE = 76.2 PG/MLNOTE: HIGH-SENSITIVITY TROPONIN ASSAY IS NOT INTENDED TO BEUSED IN ISOLATION BUT SHOULD BE INTERPRETED IN CONJUNCTIONWITH OTHER DIAGNOSTIC AND CLINICAL INFORMATION. Platelet mean volume Auto (B ld) [Entitic vol]on 04-02-2024 Platelet mean volume (Bld) [Entitic vol] 12.5 fL 9.5-13.5 [facility] Platelets Auto (Bld) [#/Vol] on 04-02-2024 Platelets (Bld) [#/Vol] 139 10 3/uL Low 150-450 [facility] RBC Auto (Bld) [#/Vol]on RBC (Bld) [#/Vol] 3.71 10 6/uL Low 4.70-6.10 [facility] Serum or plasma albumin/glob ulin mass ratioon 04-02-2024 Albumin/Globulin [Mass ratio] 0.9 {ratio} [facility] Serum or plasma anion gap de terminationon 04-02-2024 Anion gap [Moles/Vol] 11.2 mmol/L [facility] Basophils Auto (Bld) [#/Vol] on 04-01-2024 Basophils (Bld) [#/Vol] 0.0 10 3/uL 0.0-0.1 [facility] Basophils/100 WBC Auto (Bld) on 04-01-2024 Basophils/100 WBC (Bld) 0.2 % 0.2-2.0 [facility] Eosinophils/100 WBC Auto (Bl d)on 04-01-2024 Eosinophils/100 WBC (Bld) 1.8 % 0.9-7.0 [facility] Erythrocyte distribution wid th Auto (RBC) [Ratio]on 04-01-2024 Erythrocyte distribution width (RBC) [Ratio] 13.7 % 11.0-15.0 [facility] Estimated glomerular filtrat ion rate (GFR) non- Americanon 04-01-2024 GFR/1.73 sq M.predicted among non-blacks MDRD (S/P/Bld) [Vol rate/Area] 43 mL/min/{1.73_m2} Low >=60 [facility] Globulin Calc (S) [Mass/Vol] on 04-01-2024 Globulin (S) [Mass/Vol] 3.3 g/dL [facility] Hematocrit Auto (Bld) [Volum e fraction]on 04-01-2024 Hematocrit (Bld) [Volume fraction] 35.6 % Low 42.0-54.0 [facility] Hemoglobin [Mass/volume] in Bloodon 04-01-2024 Hemoglobin (Bld) [Mass/Vol] 11.1 g/dL Low 14.0-18.0 [facility] INR in Platelet poor plasma by Coagulation assayon 04-01-2024 INR Coag (PPP) [Relative time] 0.98 {INR} [facility] Comment on above: DESIRED INR:2.0-3.0 CONDITIONS NOT LISTED BELOW2.5-3.5 FOR PROSTHETIC HEART VALVE REPLACEMENT2.5-3.5 RECURRENT THROMBOSIS Laboratory - Chemistry and C hemistry - challengeon 04-01-2024 Albumin [Mass/Vol] 3.3 g/dL Low 3.4-5.0 [facility] ALP [Catalytic activity/Vol] 91 U/L 46-116 [facility] ALT [Catalytic activity/Vol] 19 U/L 16-63 [facility] AST [Catalytic activity/Vol] 12 U/L Low 15-37 [facility] Bilirubin [Mass/Vol] 0.4 mg/dL 0.2-1.0 [facility] Calcium [Mass/Vol] 8.5 mg/dL 8.5-10.1 [facility] Chloride [Moles/Vol] 102 mmol/L 98-107 [facility] CO2 [Moles/Vol] 26.5 mmol/L 21.0-32.0 [facility] Creatinine [Mass/Vol] 1.56 mg/dL High 0.70-1.30 [facility] GFR/1.73 sq M.predicted MDRD (S/P/Bld) [Vol rate/Area] 52 mL/min/{1.73_m2} Low >=60 [facility] Glucose [Mass/Vol] 234 mg/dL High 74-106 [facility] Natriuretic peptide B (Bld) [Mass/Vol] 284.0 pg/mL <=1800.0 [facility] Potassium [Moles/Vol] 4.2 mmol/L 3.5-5.1 [facility] Protein [Mass/Vol] 6.6 g/dL 6.4-8.2 [facility] Sodium [Moles/Vol] 138 mmol/L 136-145 [facility] Urea nitrogen [Mass/Vol] 18.0 mg/dL 7.0-18.0 [facility] Urea nitrogen/Creatinine [Mass ratio] 11.5 mg/mg [facility] Laboratory - Hematology and Cell countson 04-01-2024 Immature granulocytes/100 WBC (Bld) 0.2 % 0.0-0.5 [facility] Leukocytes [#/volume] correc iván for nucleated erythrocytes in Blood by Automated counon 04-01-2024 WBC corrected for nucl RBC Auto (Bld) [#/Vol] 6.2 10 3/uL 4.0-11.0 [facility] Lymphocytes Auto (Bld) [#/Vo l]on 04-01-2024 Lymphocytes (Bld) [#/Vol] 1.3 10 3/uL 1.2-3.8 [facility] Lymphocytes/100 WBC Auto (Bl d)on 04-01-2024 Lymphocytes/100 WBC (Bld) 20.2 % Low 20.5-60.0 [facility] MCH Auto (RBC) [Entitic mass ]on 04-01-2024 MCH (RBC) [Entitic mass] 27.5 pg 25.9-34.0 [facility] MCHC Auto (RBC) [Mass/Vol]on 04-01-2024 MCHC (RBC) [Mass/Vol] 31.2 g/dL 29.9-35.2 [facility] MCV Auto (RBC) [Entitic vol] on 04-01-2024 MCV (RBC) [Entitic vol] 88.1 fL 80.0-94.0 [facility] Monocytes Auto (Bld) [#/Vol] on 04-01-2024 Monocytes (Bld) [#/Vol] 0.6 10 3/uL 0.3-0.8 [facility] Monocytes/100 WBC Auto (Bld) on 04-01-2024 Monocytes/100 WBC (Bld) 10.2 % 1.7-12.0 [facility] Neutrophils Auto (Bld) [#/Vo l]on 04-01-2024 Neutrophils (Bld) [#/Vol] 4.2 10 3/uL 1.4-6.5 [facility] Neutrophils/100 WBC Auto (Bl d)on 04-01-2024 Neutrophils/100 WBC (Bld) 67.4 % 43.0-75.0 [facility] No Panel Informationon 04-01 Troponin I High Sensitivity 6.7 pg/mL 4.0-76.1 [facility] Comment on above: CUT-OFF POINTS HAVE BEEN ESTABLISHED BASED ON THE FOURTHUNIVERSAL DEFINITION OF MYOCARDIAL INFARCTION. THE UPPERREFERENCE LIMIT (URL) OF TROPONIN, DEFINED THE 99THPERCENTILE OF cTnI DISTRIBUTION IN A REFERENCE POPULATION,HAS BEEN CONFIRMED THE DECISION THRESHOLD FOR MIDIAGNOSIS.99TH PERCENTILE = 76.2 PG/MLNOTE: HIGH-SENSITIVITY TROPONIN ASSAY IS NOT INTENDED TO BEUSED IN ISOLATION BUT SHOULD BE INTERPRETED IN CONJUNCTIONWITH OTHER DIAGNOSTIC AND CLINICAL INFORMATION. Eosinophils # (Auto) 0.1 10 3/uL 0.0-0.7 [facility] Immature Granulocyte # (Auto) 0.01 10 3/uL 0.00-0.03 [facility] Platelet mean volume Auto (B ld) [Entitic vol]on 04-01-2024 Platelet mean volume (Bld) [Entitic vol] 11.8 fL 9.5-13.5 [facility] Platelets Auto (Bld) [#/Vol] on 04-01-2024 Platelets (Bld) [#/Vol] 152 10 3/uL 150-450 [facility] Prothrombin time (PT)on PT Coag (PPP) [Time] 10.4 s 9.0-11.6 [facility] RBC Auto (Bld) [#/Vol]on RBC (Bld) [#/Vol] 4.04 10 6/uL Low 4.70-6.10 [facility] Center Serum or plasma albumin/glob ulin mass ratioon 04-01-2024 Albumin/Globulin [Mass ratio] 1.0 {ratio} [facility] Serum or plasma anion gap de terminationon 04-01-2024 Anion gap [Moles/Vol] 13.7 mmol/L [facility] Office Visiton 03-22-2024 Follow-up visit [id number] Amina Goncalves Yehuda 1945 M Date Provider Department Center 03/22/2024 [facility] Family History Problem Relation Age of Onset Cancer Mother Heart attack Other Family Status - Relation Status Age at Mother Other Level of Service:90193 OR OFFICE/OUTPATIENT ESTABLISHED LOW MDM 20 MIN Normal [facility] HPon 03-16-2024 History Of Present I llness [...] a hospital admission) Transesophageal echo (JESSICA) 01/24/2024 [id number] Final Review of Systems Constitutional: Positive for [...] left atrial appendage closure per protocol. Normal [facility] NURSNOTEon 03-16-2024 NURSNOTE Bedside swallow stud y passed. Normal [facility] NURSNOTE RN educated pt on d/ c instructions. RN encouraged pt to voice any questions or concerns. Pt verbalizes no questions or concerns at this time. Normal [facility] Glucose mean value [Mass/vol ume] in Blood Estimated from glycated hemoglobinon 02-27-2024 Average glucose Estimated from glycated hemoglobin (Bld) [Mass/Vol] 160 mg/dL [facility] Laboratory - Hematology and Cell countson 02-27-2024 HbA1c (Bld) [Mass fraction] 7.2 % High 4.5-6.2 [facility] Comment on above: ADA RECOMMENDED LIMI T 4.0 - 6.0ADA THERAPEUTIC TARGET < 7.0ACTION SUGGESTED> 7.0 Capillary blood glucose winifred urement by glucometer (mass/volume)Ordered By: Augustine Freitas on 02-24-2024 Glucose [Mass/Vol] 124 mg/dL [facility] Comment on above: Random Glucose Refer ence Range is dependent on time and content of last meal. Glucose of more than 200 mg/dL in a nonstressed, ambulatory subject supports the diagnosis of Diabetes Mellitus. Result Comment: [place] Glucose Reference Range is dependent on time and content of last meal. Glucose of more than 200 mg/dL in a nonstressed, ambulatory subject supports the diagnosis of Diabetes Mellitus. Performed By: #### G LULS #### Point of Care testing , Glucose Poct Glucometerson 0 02-24-2024 Commemt1 Glu2: Cleaned Meter Normal [facility] Comment on above: Result Comment: PERF ORMED BY: [place] [address] PATHOLOGIST OBSTETRICS SPECIALIST RICKY STRANGE M.D. Performed By: #### G LULS #### Point of Care testing , No Panel InformationOrdered By: Augustine Freitas on 02-24-2024 Bedside Glucose Comment Glu2: cleaned meter [facility] 36on 02-16-2024 36 There are pictures i n media Normal [facility] ECG 12 lead ECGon 02-16-2024 ECG 12 lead ECG [facility] Main [place] [id number] Electrocardiograph Report Signed Patient: Tito Goncalves MR#: [id number] 70 : 1945 Acct:[id number] Age/Sex: 79 / M ADM Date: 02/16/24 Loc: PS Room: Type: [facility] Attending Dr: Augustine Freitas DO [...] T wave abnormality Confirmed by Viviane Herman ([id number]) on 02/17/2024 12:43:51 PM Referred By: JAMAR Electronically Signed By:Viviane Herman Transcribed By: MUS Signed By Viviane Herman MD 4 [id number] Normal [facility] Office Visiton 02-09-2024 Follow-up visit [id number] Amina Goncalves 1945 M Date Provider Department Center 02/09/2024 Daily-MADISON PAUL C[facility] Family History Problem Relation Age of Onset Cancer Mother Heart attack Other Family Status - Relation Status Age at Mother Other Level of Service:87255 OR OFFICE/OUTPATIENT ESTABLISHED LOW MDM 20 MIN Reason for Visit and Comments: Atrial Fibrillation [80] - S/p LAAO with Amulet device Normal [facility] 30on 01-29-2024 30 The patient is Moder [...] Goal: Maintains hematologic stability Outcome: Progressing Normal [facility] BASIC METABOLIC PANELon 05-0 Anion gap [Moles/Vol] 11 mmol/L Normal - [facility] Comment on above: Performed By: #### L [id number] #### [facility] (BEAKER) [address] [place] [address] Calcium [Mass/Vol] 8.0 mg/dL Low 8.6-10.3 [facility] Comment on above: Performed By: #### L [id number] #### [facility] ([facility]) [address] [place] [address] Chloride [Moles/Vol] 109 mmol/L High 98-[address] [facility] Comment on above: Performed By: #### L [id number] #### [facility] ([facility]) [address] [place] [address] CO2 [Moles/Vol] 24 mmol/L Normal 21-31 [facility] Comment on above: Performed By: #### L [id number] #### [facility] ([facility]) [address] [place] [address] Creatinine [Mass/Vol] 1.17 mg/dL Normal 0.70-1.30 [facility] Comment on above: Performed By: #### L [id number] #### [facility] ([facility]) [address] [place] [address] GLOMERULAR FILTRATION RATE ML/MIN/1.73 SQ M.PREDICTED 63.8 mL/min/1.73m*2 Normal >60.0 [facility] Comment on above: Result Comment: [facility]???s estimated glomerular filtration rate (eGFR) will no [...] individuals. Performed By: #### L [id number] #### [facility] ([facility]) [address] [place] [address] Glucose [Mass/Vol] 125 mg/dL High 70-100 [facility] Comment on above: Performed By: #### L [id number] #### [facility] ([facility]) [address] [place] [address] Potassium [Moles/Vol] 3.6 mmol/L Normal 3.5-5.1 [facility] Comment on above: Performed By: #### L [id number] #### [facility] ([facility]) [address] [place] [address] Sodium [Moles/Vol] 140 mmol/L Normal 136-145 [facility] Comment on above: Performed By: #### L [id number] #### [facility] ([facility]) [address] [place] [address] Urea nitrogen [Mass/Vol] 22 mg/dL Normal 7-25 [facility] Comment on above: Performed By: #### L [id number] #### [facility] ([facility]) [address] [place] [address] UREA NITROGEN/CREATININE (MASS RATIO) IN SER/PLAS 18.8 Normal [facility] Comment on above: Performed By: #### L [id number] #### [facility] ([facility]) [address] [place] [address] CBCon 01-29-2024 Erythrocyte distribution width (RBC) [Ratio] 14.6 % Normal 11.5-15.0 [facility] Comment on above: Performed By: #### L [id number] #### [facility] ([facility]) [address] [place] [address] ERYTHROCYTE MEAN CORPUSCULAR HEMOGLOBIN CONCENTRATION (G/DL) BY AUTOMATED 32.8 g/dL Normal 32.0-35.0 [facility] Comment on above: Performed By: #### L [id number] #### [facility] ([facility]) [address] [place] [address] Hematocrit (Bld) [Volume fraction] 30.5 % Low 39.0-55.0 [facility] Comment on above: Performed By: #### L [id number] #### [facility] ([facility]) [address] [place] [address] Hemoglobin (Bld) [Mass/Vol] 10.0 g/dL Low 13.0-17.0 [facility] Comment on above: Performed By: #### L [id number] #### [facility] ([facility]) [address] [place] [address] MCH (RBC) [Entitic mass] 29.1 pg Normal 27.0-33.0 [facility] Comment on above: Performed By: #### L [id number] #### [facility] ([facility]) [address] [place] [address] MCV (RBC) [Entitic vol] 88.7 fL Normal 82.0-98.0 [facility] Comment on above: Performed By: #### L [id number] #### [facility] ([facility]) [address] [place] [address] PLATELETS (10*3/UL) IN BLOOD AUTOMATED COUNT 151 10*3/uL Normal 150-400 [facility] Comment on above: Performed By: #### L [id number] #### [facility] ([facility]) [address] [place] [address] RBC (Bld) [#/Vol] 3.44 10*6/uL Low 4.20-5.70 [facility] Comment on above: Performed By: #### L [id number] #### [facility] ([facility]) [address] [place] [address] WBC (Bld) [#/Vol] 6.43 10*3/uL Normal 4.00-10.60 [facility] Comment on above: Performed By: #### L [id number] #### [facility] ([facility]) [address] [place] [address] HEMOGLOBIN A1Con 01-29-2024 Glucose [Mass/Vol] 163 mg/dL Normal [facility] Comment on above: Performed By: #### L [id number] #### [facility] ([facility]) [address] [place] [address] HbA1c (Bld) [Mass fraction] 7.3 % High 4.0-6.0 [facility] Comment on above: Performed By: #### L [id number] #### [facility] ([facility]) [address] [facility] [place] [address] POCT GLUCOSE METER UNSOLICIT ED RESULTSon 01-29-2024 Glucose [Mass/Vol] 218 mg/dL High 70-105 [facility] Comment on above: Order Comment: Waive d Testing in the ED is performed under the ED CLIA certificate #[id number]. Result Comment: [email or web address] Performed By: #### L [id number] ####[facility] ([facility])[address] [facility] [place] [address] Glucose [Mass/Vol] 138 mg/dL High 70-105 [facility] Comment on above: Order Comment: Waive d Testing in the ED is performed under the ED CLIA certificate #[id number]. Result Comment: [email or web address] Performed By: #### L [id number] #### [facility] ([facility]) [address] [place] [address] 30on 01-28-2024 30 The patient is Moder [...] and behaviors that affect risk of falls [place] fall precautions as indicated by assessment Problem: [...] Goal: Maintains hematologic stability Outcome: Progressing Normal [facility] BASIC METABOLIC PANELon 05-0 Anion gap [Moles/Vol] 12 mmol/L Normal 7-20 [facility] Comment on above: Performed By: #### L [id number] ####[facility] (BEAKER)[address] [place] [address] Calcium [Mass/Vol] 7.7 mg/dL Low 8.6-10.3 [facility] Comment on above: Performed By: #### L [id number] ####[facility] (BEAKER)[address] [place] [address] Chloride [Moles/Vol] 108 mmol/L High 98-[address] [facility] Comment on above: Performed By: #### L [id number] ####[facility] (BEAKER)[address] [place] [address] CO2 [Moles/Vol] 21 mmol/L Normal 21-31 [facility] Comment on above: Performed By: #### L [id number] ####[facility] ([facility])[address] [place] [address] Creatinine [Mass/Vol] 1.16 mg/dL Normal 0.70-1.30 [facility] Comment on above: Performed By: #### L [id number] ####[facility] ([facility])[address] [place] [address] GLOMERULAR FILTRATION RATE ML/MIN/1.73 SQ M.PREDICTED 64.5 mL/min/1.73m*2 Normal >60.0 [facility] Comment on above: Result Comment: [facility]???s estimated glomerular filtration rate (eGFR) will no [...] of individuals. Performed By: #### L [id number] ####[facility] ([facility])[address] [place] [address] Glucose [Mass/Vol] 143 mg/dL High 70-100 [facility] Comment on above: Performed By: #### L [id number] ####[facility] ([facility])[address] [place] [address] Potassium [Moles/Vol] 3.3 mmol/L Low 3.5-5.1 [facility] Comment on above: Performed By: #### L [id number] ####[facility] ([facility])[address] [place] [address] Sodium [Moles/Vol] 138 mmol/L Normal 136-145 [facility] Comment on above: Performed By: #### L [id number] ####[facility] ([facility])[address] [place] [address] Urea nitrogen [Mass/Vol] 27 mg/dL High 7-25 [facility] Comment on above: Performed By: #### L [id number] ####[facility] ([facility])[address] [place] [address] UREA NITROGEN/CREATININE (MASS RATIO) IN SER/PLAS 23.3 Normal [facility] Comment on above: Performed By: #### L [id number] ####[facility] ([facility])[address] [place] [address] CBCon 01-28-2024 Erythrocyte distribution width (RBC) [Ratio] 14.4 % Normal 11.5-15.0 [facility] Comment on above: Performed By: #### L [id number] #### [facility] ([facility]) [address] [place] [address] ERYTHROCYTE MEAN CORPUSCULAR HEMOGLOBIN CONCENTRATION (G/DL) BY AUTOMATED 32.8 g/dL Normal 32.0-35.0 [facility] Comment on above: Performed By: #### L [id number] #### [facility] ([facility]) [address] [place] [address] Hematocrit (Bld) [Volume fraction] 31.4 % Low 39.0-55.0 [facility] Comment on above: Performed By: #### L [id number] #### [facility] ([facility]) [address] [place] [address] Hemoglobin (Bld) [Mass/Vol] 10.3 g/dL Low 13.0-17.0 [facility] Comment on above: Performed By: #### L [id number] #### [facility] ([facility]) [address] [place] [address] MCH (RBC) [Entitic mass] 29.0 pg Normal 27.0-33.0 [facility] Comment on above: Performed By: #### L [id number] #### [facility] (BEAKER) [address] [place] [address] MCV (RBC) [Entitic vol] 88.5 fL Normal 82.0-98.0 [facility] Comment on above: Performed By: #### L [id number] #### [facility] ([facility]) [address] [place] [address] PLATELETS (10*3/UL) IN BLOOD AUTOMATED COUNT 134 10*3/uL Low 150-400 [facility] Comment on above: Performed By: #### L [id number] #### [facility] ([facility]) [address] [place] [address] RBC (Bld) [#/Vol] 3.55 10*6/uL Low 4.20-5.70 [facility] Comment on above: Performed By: #### L [id number] #### [facility] ([facility]) [address] [place] [address] WBC (Bld) [#/Vol] 6.52 10*3/uL Normal 4.00-10.60 [facility] Comment on above: Performed By: #### L [id number] #### [facility] ([facility]) [address] [place] [address] MAGNESIUMon 01-28-2024 Magnesium [Mass/Vol] 1.8 mg/dL Low 1.9-2.[address] [facility] Comment on above: Performed By: #### L [id number] ####[facility] ([facility])[address] [place] [address] PHOSPHORUSon 01-28-2024 Magnesium [Mass/Vol] 2.5 mg/dL Normal 2.5-5.[address] [facility] Comment on above: Performed By: #### L [id number] ####[facility] ([facility])[address] [place] [address] POCT GLUCOSE METER UNSOLICIT ED RESULTSon 01-28-2024 Glucose [Mass/Vol] 258 mg/dL High 70-105 [facility] Comment on above: Order Comment: Waive d Testing in the ED is performed under the ED CLIA certificate #[id number]. Result Comment: [email or web address] Performed By: #### L [id number] #### [facility] (BEAKER) [address] [place] [address] Glucose [Mass/Vol] 133 mg/dL High 70-105 [facility] Comment on above: Order Comment: Waive d Testing in the ED is performed under the ED CLIA certificate #[id number]. Result Comment: [email or web address] Performed By: #### L [id number] ####[facility] ([facility])[address] [place] [address] Glucose [Mass/Vol] 260 mg/dL High 70-105 [facility] Comment on above: Order Comment: Waive d Testing in the ED is performed under the ED CLIA certificate #[id number]. Result Comment: [email or web address] Performed By: #### L [id number] ####[facility] ([facility])[address] [place] [address] Glucose [Mass/Vol] 140 mg/dL High 70-105 [facility] Comment on above: Order Comment: Waive d Testing in the ED is performed under the ED CLIA certificate #[id number]. Result Comment: [email or web address] Performed By: #### L [id number] #### [facility] ([facility]) [address] [place] [address] 30on 01-27-2024 30 Daily Case Managemen t Update Multidisciplinary rounds have been completed. 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 Pericardial drain remains in place. On amiodarone gtt. Plan to discharge home when medically cleared. Diet: Dietary Orders (From admission, onward) Start Ordered 01/26/24 1247 Special Kitchen Request Once Comments: Chicken noodle soup Fruit cup Diet coke Tilapia (plain) [place] cake 01/26/24 1246 01/26/24 1246 Regular Diet [...] Answer: eval and treat 01/26/24 1241 Normal [facility] 30 The patient is Moder ately Stable [...] medication and electrolyte replacement as ordered Normal [facility] BASIC METABOLIC PANELon 05-0 Anion gap [Moles/Vol] 11 mmol/L Normal 7-20 [facility] Comment on above: Performed By: #### L [id number] ####[facility] (BEAKER)[address] [place] [address] Calcium [Mass/Vol] 7.9 mg/dL Low 8.6-10.3 [facility] Comment on above: Performed By: #### L [id number] ####[facility] (BEAKER)[address] [place] [address] Chloride [Moles/Vol] 108 mmol/L High 98-[address] [facility] Comment on above: Performed By: #### L [id number] ####[facility] ([facility])[address] [place] [address] CO2 [Moles/Vol] 22 mmol/L Normal 21-31 [facility] Comment on above: Performed By: #### L [id number] ####[facility] ([facility])[address] [place] [address] Creatinine [Mass/Vol] 1.31 mg/dL High 0.70-1.30 [facility] Comment on above: Performed By: #### L [id number] ####[facility] ([facility])[address] [place] [address] GLOMERULAR FILTRATION RATE ML/MIN/1.73 SQ M.PREDICTED 55.7 mL/min/1.73m*2 Low >60.0 [facility] Comment on above: Result Comment: [facility]???s estimated glomerular filtration rate (eGFR) will no [...] of individuals. Performed By: #### L [id number] ####[facility] ([facility])[address] [place] [address] Glucose [Mass/Vol] 154 mg/dL High 70-100 [facility] Comment on above: Performed By: #### L [id number] ####[facility] ([facility])[address] [place] [address] Potassium [Moles/Vol] 3.6 mmol/L Normal 3.5-5.1 [facility] Comment on above: Performed By: #### L [id number] ####[facility] ([facility])[address] [place] [address] Sodium [Moles/Vol] 137 mmol/L Normal 136-145 [facility] Comment on above: Performed By: #### L [id number] ####[facility] ([facility])[address] [place] [address] Urea nitrogen [Mass/Vol] 30 mg/dL High 7-25 [facility] Comment on above: Performed By: #### L [id number] ####[facility] ([facility])[address] [place] [address] UREA NITROGEN/CREATININE (MASS RATIO) IN SER/PLAS 22.9 Normal [facility] Comment on above: Performed By: #### L [id number] ####[facility] ([facility])[address] [place] [address] CBCon 01-27-2024 Erythrocyte distribution width (RBC) [Ratio] 14.5 % Normal 11.5-15.0 [facility] Comment on above: Performed By: #### L [id number] ####[facility] ([facility])[address] [place] [address] ERYTHROCYTE MEAN CORPUSCULAR HEMOGLOBIN CONCENTRATION (G/DL) BY AUTOMATED 32.2 g/dL Normal 32.0-35.0 [facility] Comment on above: Performed By: #### L [id number] ####[facility] ([facility])[address] [place] [address] Hematocrit (Bld) [Volume fraction] 31.4 % Low 39.0-55.0 [facility] Comment on above: Performed By: #### L [id number] ####[facility] (BEAKER)[address] [place] [address] Hemoglobin (Bld) [Mass/Vol] 10.1 g/dL Low 13.0-17.0 [facility] Comment on above: Performed By: #### L [id number] ####[facility] (BEAKER)[address] [place] [address] MCH (RBC) [Entitic mass] 29.0 pg Normal 27.0-33.0 [facility] Comment on above: Performed By: #### L [id number] ####[facility] ([facility])[address] [place] [address] MCV (RBC) [Entitic vol] 90.2 fL Normal 82.0-98.0 [facility] Comment on above: Performed By: #### L [id number] ####[facility] ([facility])[address] [place] [address] PLATELETS (10*3/UL) IN BLOOD AUTOMATED COUNT 134 10*3/uL Low 150-400 [facility] Comment on above: Performed By: #### L [id number] ####[facility] ([facility])[address] [place] [address] RBC (Bld) [#/Vol] 3.48 10*6/uL Low 4.20-5.70 [facility] Comment on above: Performed By: #### L [id number] ####[facility] ([facility])[address] [place] [address] WBC (Bld) [#/Vol] 8.70 10*3/uL Normal 4.00-10.60 [facility] Comment on above: Performed By: #### L [id number] ####[facility] ([facility])[address] [place] [address] MAGNESIUMon 01-27-2024 Magnesium [Mass/Vol] 2.0 mg/dL Normal 1.9-2.[address] [facility] Comment on above: Performed By: #### L [id number] #### [facility] ([facility]) [address] [place] [address] NURSNOTEon 01-27-2024 NURSNOTE Patient Name: Tito Goncalves [...] voiced no concerns at this time. The advertising writer urged the primary RN to call the rapid team if any concerns arise overnight. Vic Euceda RN Rapid Response Team Nurse [phone] 01/27/2024 9:04 PM Normal [facility] NURSNOTE Patient Name: Tito Goncalves : 1945 [...] this time. Vital signs are stable via nuclear equipment research engineer and daily lab values are unremarkable. If emergent concerns arise, please call rapid response team. Dominga Millard RN Rapid Response Team Nurse [phone] 01/27/2024 12:15 PM Normal [facility] PHOSPHORUSon 01-27-2024 Magnesium [Mass/Vol] 2.2 mg/dL Low 2.5-5.[address] [facility] Comment on above: Performed By: #### L [id number] #### [facility] ([facility]) [address] [place] [address] POCT GLUCOSE METER UNSOLICIT ED RESULTSon 01-27-2024 Glucose [Mass/Vol] 206 mg/dL High 70-105 [facility] Comment on above: Order Comment: Waive d Testing in the ED is performed under the ED CLIA certificate #[id number]. Result Comment: [email or web address] Performed By: #### L [id number] #### [facility] ([facility]) [address] [place] [address] Glucose [Mass/Vol] 187 mg/dL High 70-105 [facility] Comment on above: Order Comment: Waive d Testing in the ED is performed under the ED CLIA certificate #[id number]. Result Comment: [email or web address] Performed By: #### L [id number] #### [facility] ([facility]) [address] [place] [address] Glucose [Mass/Vol] 223 mg/dL High 70-105 [facility] Comment on above: Order Comment: Waive d Testing in the ED is performed under the ED CLIA certificate #[id number]. Result Comment: [email or web address] Performed By: #### L [id number] #### [facility] ([facility]) [address] [place] [address] Glucose [Mass/Vol] 160 mg/dL High 70-105 [facility] Comment on above: Order Comment: Waive d Testing in the ED is performed under the ED CLIA certificate #[id number]. Result Comment: [email or web address] Performed By: #### L [id number] #### [facility] ([facility]) [address] [place] [address] 30on 01-26-2024 30 Daily Case Managemen t Update Multidisciplinary rounds have been completed. Barriers to Discharge: 5/2- pericardial drain in place, slight EDEN, wants drain output to be less than 25 cc before it is pulled. ECHO today. pt ot ordered. from home wants to return. CB Diet: Dietary Orders (From admission, onward) Start Ordered 01/26/24 1247 Special Kitchen Request Once Comments: Chicken noodle soup Fruit cup Diet coke Tilapia (plain) [place] cake 01/26/24 1246 01/26/24 1246 Regular Diet [...] Answer: eval and treat 01/26/24 1241 Normal [facility] BASIC METABOLIC PANELon 05-0 Anion gap [Moles/Vol] 12 mmol/L Normal 7-20 [facility] Comment on above: Performed By: #### L [id number] #### [facility] ([facility]) [address] [place] [address] Calcium [Mass/Vol] 7.6 mg/dL Low 8.6-10.3 [facility] Comment on above: Performed By: #### L [id number] #### [facility] ([facility]) [address] [place] [address] Chloride [Moles/Vol] 109 mmol/L High 98-[address] [facility] Comment on above: Performed By: #### L [id number] #### [facility] ([facility]) [address] [place] [address] CO2 [Moles/Vol] 21 mmol/L Normal 21-31 [facility] Comment on above: Performed By: #### L [id number] #### [facility] ([facility]) [address] [place] [address] Creatinine [Mass/Vol] 1.62 mg/dL High 0.70-1.30 [facility] Comment on above: Performed By: #### L [id number] #### [facility] ([facility]) [address] [place] [address] GLOMERULAR FILTRATION RATE ML/MIN/1.73 SQ M.PREDICTED 43.2 mL/min/1.73m*2 Low >60.0 [facility] Comment on above: Result Comment: [facility]???s estimated glomerular filtration rate (eGFR) will no [...] group of individuals. Performed By: #### L [id number] #### [facility] ([facility]) [address] [place] [address] Glucose [Mass/Vol] 152 mg/dL High 70-100 [facility] Comment on above: Performed By: #### L [id number] #### [facility] ([facility]) [address] [place] [address] Potassium [Moles/Vol] 3.9 mmol/L Normal 3.5-5.1 [facility] Comment on above: Performed By: #### L [id number] #### [facility] ([facility]) [address] [facility] [place] [address] Sodium [Moles/Vol] 138 mmol/L Normal 136-145 [facility] Comment on above: Performed By: #### L [id number] #### [facility] ([facility]) [address] [place] [address] Urea nitrogen [Mass/Vol] 37 mg/dL High 7-25 [facility] Comment on above: Performed By: #### L [id number] #### [facility] ([facility]) [address] [place] [address] UREA NITROGEN/CREATININE (MASS RATIO) IN SER/PLAS 22.8 Normal [facility] Comment on above: Performed By: #### L [id number] #### [facility] ([facility]) [address] [place] [address] CBCon 01-26-2024 Erythrocyte distribution width (RBC) [Ratio] 14.5 % Normal 11.5-15.0 [facility] Comment on above: Performed By: #### L [id number] #### [facility] ([facility]) [address] [place] [address] ERYTHROCYTE MEAN CORPUSCULAR HEMOGLOBIN CONCENTRATION (G/DL) BY AUTOMATED 31.9 g/dL Low 32.0-35.0 [facility] Comment on above: Performed By: #### L [id number] #### [facility] ([facility]) [address] [place] [address] Hematocrit (Bld) [Volume fraction] 33.2 % Low 39.0-55.0 [facility] Comment on above: Performed By: #### L [id number] #### [facility] ([facility]) [address] [place] [address] Hemoglobin (Bld) [Mass/Vol] 10.6 g/dL Low 13.0-17.0 [facility] Comment on above: Performed By: #### L [id number] #### [facility] ([facility]) [address] [place] [address] MCH (RBC) [Entitic mass] 29.1 pg Normal 27.0-33.0 [facility] Comment on above: Performed By: #### L [id number] #### [facility] ([facility]) [address] [place] [address] MCV (RBC) [Entitic vol] 91.2 fL Normal 82.0-98.0 [facility] Comment on above: Performed By: #### L [id number] #### [facility] ([facility]) [address] [place] [address] PLATELETS (10*3/UL) IN BLOOD AUTOMATED COUNT 123 10*3/uL Low 150-400 [facility] Comment on above: Performed By: #### L [id number] #### [facility] ([facility]) [address] [place] [address] RBC (Bld) [#/Vol] 3.64 10*6/uL Low 4.20-5.70 [facility] Comment on above: Performed By: #### L [id number] #### [facility] ([facility]) [address] [place] [address] WBC (Bld) [#/Vol] 12.08 10*3/uL High 4.00-10.[address] [facility] Comment on above: Performed By: #### L [id number] #### [facility] ([facility]) [address] [place] [address] MAGNESIUMon 01-26-2024 Magnesium [Mass/Vol] 1.9 mg/dL Normal 1.9-2.[address] [facility] Comment on above: Performed By: #### L [id number] #### [facility] ([facility]) [address] [place] [address] NURSNOTEon 01-26-2024 NURSNOTE Patient Name: Tito Goncalves [...] time, but encouraged to reach out to INSTITUTIONAL ASSET MANAGER if anything changes overnight or with any further concerns. Suleman Ortiz, RN Rapid Response Team Nurse [phone] 01/26/2024 10:20 PM Normal [facility] PHOSPHORUSon 01-26-2024 Magnesium [Mass/Vol] 3.7 mg/dL Normal 2.5-5.[address] [facility] Comment on above: Performed By: #### L [id number] ####[facility] ([facility])[address] [place] [address] POCT GLUCOSE METER UNSOLICIT ED RESULTSon 01-26-2024 Glucose [Mass/Vol] 163 mg/dL High 70-105 [facility] Comment on above: Order Comment: Waive d Testing in the ED is performed under the ED CLIA certificate #[id number]. Result Comment: [email or web address] Performed By: #### L [id number] #### [facility] ([facility]) [address] [place] [address] Glucose [Mass/Vol] 206 mg/dL High 70-105 [facility] Comment on above: Order Comment: Waive d Testing in the ED is performed under the ED CLIA certificate #[id number]. Result Comment: [email or web address] Performed By: #### L [id number] ####[facility] ([employer] [place] [address] Glucose [Mass/Vol] 155 mg/dL High 70-105 [facility] Comment on above: Order Comment: Waive d Testing in the ED is performed under the ED CLIA certificate #[id number]. Result Comment: [email or web address] Performed By: #### L [id number] #### [facility] ([employer] [address] [place] [address] Glucose [Mass/Vol] 150 mg/dL High 70-105 [facility] Comment on above: Order Comment: Waive d Testing in the ED is performed under the ED CLIA certificate #[id number]. Result Comment: [email or web address] Performed By: #### L [id number] #### [facility] (BEAKER) [address] [place] [address] 30on 01-25-2024 30 Daily Case Managemen t Update Multidisciplinary rounds have been completed. Barriers to Discharge: 01/24- patient here for planned atrial appendage closure. Per morning meeting the patient fell this morning, presumably from hypotension (BP in 60s/70s). Gave patient fluids to rescusitate but was unsuccessful. Patient was started on levophed and brought to MICU. ECHO showed pericardia effusion, went to lab technologist this morning for pericardiocentesis. Patient has pericardial drain. May need pt ot given age but would anticipate home maybe with [facility]. CB Diet: Dietary Orders (From admission, onward) Start Ordered 01/24/24 1051 Regular Diet Diabetic Male (carb 60g/meal) Diet effective now Question Answer Comment Room Service? Yes Carbohydrate restriction: Diabetic Male (carb 60g/meal) 01/24/24 1050 Physician Expected Discharge Date: 01/25/2024 Discharge Delays: PT Six Click Score: 21 OT Six Click Score: PT Recommendations: OT Recommendations: New Consults: Normal [facility] BASIC METABOLIC PANELon 05-0 Anion gap [Moles/Vol] 18 mmol/L Normal 7-20 [facility] Comment on above: Performed By: #### L [id number] ####[facility] (BEZEB)[address] [place] [address] Calcium [Mass/Vol] 7.8 mg/dL Low 8.6-10.3 [facility] Comment on above: Performed By: #### L [id number] ####[facility] (BEAKER)[address] [place] [address] Chloride [Moles/Vol] 104 mmol/L Normal 98-[address] [facility] Comment on above: Performed By: #### L [id number] ####[facility] (BEAKER)[address] [place] [address] CO2 [Moles/Vol] 20 mmol/L Low 21-31 [facility] Comment on above: Performed By: #### L [id number] ####[facility] (BEAKER)[address] [place] [address] Creatinine [Mass/Vol] 1.99 mg/dL High 0.70-1.30 [facility] Comment on above: Performed By: #### L [id number] ####[facility] ([facility])[address] [place] [address] GLOMERULAR FILTRATION RATE ML/MIN/1.73 SQ M.PREDICTED 33.7 mL/min/1.73m*2 Low >60.0 [facility] Comment on above: Result Comment: [facility]???s estimated glomerular filtration rate (eGFR) will no [...] of individuals. Performed By: #### L [id number] ####[facility] ([facility])[address] [place] [address] Glucose [Mass/Vol] 257 mg/dL High 70-100 [facility] Comment on above: Performed By: #### L [id number] ####[facility] ([facility])[address] [place] [address] Potassium [Moles/Vol] 5.0 mmol/L Normal 3.5-5.1 [facility] Comment on above: Performed By: #### L [id number] ####[facility] ([facility])[address] [place] [address] Sodium [Moles/Vol] 137 mmol/L Normal 136-145 [facility] Comment on above: Performed By: #### L [id number] ####[facility] ([facility])[address] [place] [address] Urea nitrogen [Mass/Vol] 30 mg/dL High 7-25 [facility] Comment on above: Performed By: #### L [id number] ####[facility] ([facility])[address] [place] [address] UREA NITROGEN/CREATININE (MASS RATIO) IN SER/PLAS 15.1 Normal [facility] Comment on above: Performed By: #### L [id number] ####[facility] ([facility])[address] [place] [address] BLOOD CULTUREon 01-25-2024 Bacteria identified Cx Nom (Bld) No growth at 5 days Normal [facility] Comment on above: Order Comment: Waive d Testing in the ED is performed under the ED CLIA certificate #[id number]. Performed By: #### L [id number] #### [facility] ([facility]) [address] [place] [address] Bacteria identified Cx Nom (Bld) No growth at 5 days Normal [facility] Comment on above: Performed By: #### L [id number] #### [facility] ([facility]) [address] [place] [address] CBCon 01-25-2024 Erythrocyte distribution width (RBC) [Ratio] 14.1 % Normal 11.5-15.0 [facility] Comment on above: Performed By: #### L [id number] #### [facility] ([facility]) [address] [place] [address] ERYTHROCYTE MEAN CORPUSCULAR HEMOGLOBIN CONCENTRATION (G/DL) BY AUTOMATED 31.9 g/dL Low 32.0-35.0 [facility] Comment on above: Performed By: #### L [id number] #### [facility] ([facility]) [address] [place] [address] Hematocrit (Bld) [Volume fraction] 34.5 % Low 39.0-55.0 [facility] Comment on above: Performed By: #### L [id number] #### [facility] (BEAKER) [address] [place] [address] Hemoglobin (Bld) [Mass/Vol] 11.0 g/dL Low 13.0-17.0 [facility] Comment on above: Performed By: #### L [id number] #### [facility] ([facility]) [address] [place] [address] MCH (RBC) [Entitic mass] 28.9 pg Normal 27.0-33.0 [facility] Comment on above: Performed By: #### L [id number] #### [facility] ([facility]) [address] [place] [address] MCV (RBC) [Entitic vol] 90.6 fL Normal 82.0-98.0 [facility] Comment on above: Performed By: #### L [id number] #### [facility] ([facility]) [address] [place] [address] PLATELETS (10*3/UL) IN BLOOD AUTOMATED COUNT 191 10*3/uL Normal 150-400 [facility] Comment on above: Performed By: #### L [id number] #### [facility] ([facility]) [address] [place] [address] RBC (Bld) [#/Vol] 3.81 10*6/uL Low 4.20-5.70 [facility] Comment on above: Performed By: #### L [id number] #### [facility] ([facility]) [address] [place] [address] WBC (Bld) [#/Vol] 13.57 10*3/uL High 4.00-10.[address] [facility] Comment on above: Performed By: #### L [id number] #### [facility] ([facility]) [address] [place] [address] CONSULTon 01-25-2024 CONSULT ------ -- Attestation signed [...] Goncalves Age - 79 [facility] 1945 [id number] Date of Admission - 01/24/2024 10:46 AM [...] complication and patient was admitted to the [facility] for over night monitoring to [...] mL, i (more content not included)... Normal [facility] CT CERVICAL SPINE WO IV CONT RASTon [...] signed: Trenton Martinez. 9 Invalid Interpretation Code [facility] CT CHEST WO IV CONTRASTon CT CHEST [...] reflux esophagitis. Approved by:Ryan Corrigan01/25/2024 6:40 AM. I, Trenton Martinez,have reviewed the image(s) and agree with the findings in this report. Electronically signed: Trenton Martinez. 5 Invalid Interpretation Code [facility] CT HEAD WO IV CONTRASTon CT HEAD [...] occult process. Approved by:Ryan Corrigan01/25/2024 6:17 AM. I, Trenton Martinez,have reviewed the image(s) and agree with the findings in this report. Electronically signed: Trenton Martinez. 1 Invalid Interpretation Code [facility] HPon 01-25-2024 HP H&P reviewed. The anthony [...] procedure. He would like to proceed. Normal [facility] LACTIC ACID WITH 4 HOUR REFL EXon 01-25-2024 LACTATE (MMOL/L) IN SER/PLAS 2.1 mmol/L Normal 0.5-2.2 [facility] Comment on above: Performed By: #### L [id number] ####[facility] ([facility])[address] [place] [address] LACTATE (MMOL/L) IN SER/PLAS 3.3 mmol/L Critically high 0.5-2.2 [facility] Comment on above: Performed By: #### L [id number] #### [facility] ([facility]) [address] [place] [address] MAGNESIUMon 01-25-2024 Magnesium [Mass/Vol] 1.8 mg/dL Low 1.9-2.[address] [facility] Comment on above: Performed By: #### L [id number] #### [facility] ([facility]) [address] [place] [address] POCT GLUCOSE METER UNSOLICIT ED RESULTSon 01-25-2024 Glucose [Mass/Vol] 164 mg/dL High 70-105 [facility] Comment on above: Order Comment: Waive d Testing in the ED is performed under the ED CLIA certificate #[id number]. Result Comment: tful ks2 Performed By: #### L [id number] #### [facility] ([facility]) [address] [place] [address] Glucose [Mass/Vol] 134 mg/dL High 70-105 [facility] Comment on above: Order Comment: Waive d Testing in the ED is performed under the ED CLIA certificate #[id number]. Result Comment: amrosina tad Performed By: #### L [id number] #### [facility] ([employer] [address] [address] Glucose [Mass/Vol] 167 mg/dL High 70-105 [facility] Comment on above: Order Comment: Waive d Testing in the ED is performed under the ED CLIA certificate #[id number]. Result Comment: amrosina tad Performed By: #### L [id number] #### [facility] ([employer] [address] [place] [address] Glucose [Mass/Vol] 208 mg/dL High 70-105 [facility] Comment on above: Order Comment: Waive d Testing in the ED is performed under the ED CLIA certificate #[id number]. Result Comment: amrosina tad Performed By: #### L [id number] ####[facility] ([employer] [facility] [address] Glucose [Mass/Vol] 270 mg/dL High 70-105 [facility] Comment on above: Order Comment: Waive d Testing in the ED is performed under the ED CLIA certificate #[id number]. Result Comment: nbow en Performed By: #### L [id number] ####[facility] ([employer] [facility] [address] PROCALCITONIN TESTon 01-24-2 024 PROCALCITONIN IN BLOOD 0.05 ng/mL Normal 0.00-0.10 [facility] Comment on above: Result Comment: Susp ected [...] and initial PCT<0.5ng/mL Performed By: #### L [id number] #### [facility] (BEAKER) [address] [place] [address] PROTIME-INRon 01-25-2024 INR IN PPP BY COAGULATION ASSAY 1.24 High 0.90-1.10 [facility] Comment on above: Result Comment: ACCC P [...] RANGE. CHEST 1995;[id number]. Performed By: #### L [id number] #### [facility] ([facility]) [address] [place] [address] PROTHROMBIN TIME (PT) IN PPP BY COAGULATION ASSAY 15.7 Seconds High 12.3-14.8 [facility] Comment on above: Performed By: #### L [id number] #### [facility] ([facility]) [address] [place] [address] TROPONIN Ion 01-25-2024 Troponin I.cardiac [Mass/Vol] 0.84 ng/mL Critically high 0.00-0.04 [facility] Comment on above: Performed By: #### L [id number] ####[facility] ([facility])[address] [place] [address] 30on 01-24-2024 30 The patient is Moder [...] and maintained or improved Outcome: Progressing Normal [facility] BASIC METABOLIC PANELon 12-27 Anion gap [Moles/Vol] 13 mmol/L Normal 7-20 [facility] Comment on above: Performed By: #### L [id number] ####[facility] ([facility])[address] [place] [address] Calcium [Mass/Vol] 8.8 mg/dL Normal 8.6-10.3 [facility] Comment on above: Performed By: #### L [id number] ####[facility] ([facility])[address] [place] [address] Chloride [Moles/Vol] 103 mmol/L Normal 98-[address] [facility] Comment on above: Performed By: #### L [id number] ####[facility] ([facility])[address] [place] [address] CO2 [Moles/Vol] 25 mmol/L Normal 21-31 [facility] Comment on above: Performed By: #### L [id number] ####[facility] ([facility])[address] [place] [address] Creatinine [Mass/Vol] 1.26 mg/dL Normal 0.70-1.30 [facility] Comment on above: Performed By: #### L [id number] ####[facility] ([facility])[address] [place] [address] GLOMERULAR FILTRATION RATE ML/MIN/1.73 SQ M.PREDICTED 58.4 mL/min/1.73m*2 Low >60.0 [facility] Comment on above: Result Comment: [facility]???s estimated glomerular filtration rate (eGFR) will no [...] of individuals. Performed By: #### L [id number] ####[facility] ([facility])[address] [place] [address] Glucose [Mass/Vol] 184 mg/dL High 70-100 [facility] Comment on above: Performed By: #### L [id number] ####[facility] ([facility])[address] [place] [address] Potassium [Moles/Vol] 4.3 mmol/L Normal 3.5-5.1 [facility] Comment on above: Performed By: #### L [id number] ####[facility] ([facility])[address] [place] [address] Sodium [Moles/Vol] 137 mmol/L Normal 136-145 [facility] Comment on above: Performed By: #### L [id number] ####[facility] ([facility])[address] [place] [address] Urea nitrogen [Mass/Vol] 21 mg/dL Normal 7-25 [facility] Comment on above: Performed By: #### L [id number] ####[facility] ([facility])[address] [place] [address] UREA NITROGEN/CREATININE (MASS RATIO) IN SER/PLAS 16.7 Normal [facility] Comment on above: Performed By: #### L [id number] ####[facility] ([facility])[address] [place] [address] HPon 01-24-2024 HP History Of Present Nori Goncalves is a 79 y.o. male presenting [...] In April 2019 he presented to the [facility] with atrial fibrillation with controlled ventricular [...] cardiac remod (more content not included)... Normal [facility] MRSA/MSSA DNA NASALon 2023 MRSA DNA Negative Normal Negative [facility] Comment on above: Order Comment: Testi ng [...] preclude nasal colonization. Performed By: #### L [id number] ####[facility] ([facility])[address] [place] [address] MSSA DNA Negative Normal Negative [facility] Comment on above: Order Comment: Testi ng [...] preclude nasal colonization. Performed By: #### L [id number] ####[facility] ([facility])[address] [place] [address] NURSNOTEon 01-24-2024 NURSNOTE CHG wipes completed. Normal [facility] POCT GLUCOSE METER UNSOLICIT ED RESULTSon 01-24-2024 Glucose [Mass/Vol] 146 mg/dL High 70-105 [facility] Comment on above: Order Comment: Waive d Testing in the ED is performed under the ED CLIA certificate #[id number]. Result Comment: [facility] di3 Performed By: #### L [id number] #### [facility] ([facility]) [address] [place] [address] TYPE AND SCREENon 01-24-2024 AB SCREEN Negative Normal [facility] Comment on above: Performed By: #### L [id number] ####[facility], ABO group Nom (Bld) A Normal [facility] Comment on above: Performed By: #### L [id number] ####[facility], RH TYPE IN BLOOD Positive Normal [facility] Comment on above: Performed By: #### L [id number] ####[facility], Basophils Auto (Bld) [#/Vol] on 01-18-2024 Basophils (Bld) [#/Vol] 0.0 10 3/uL 0.0-0.1 [facility] Basophils/100 WBC Auto (Bld) on 01-18-2024 Basophils/100 WBC (Bld) 0.4 % 0.2-2.0 [facility] Eosinophils/100 WBC Auto (Bl d)on 01-18-2024 Eosinophils/100 WBC (Bld) 2.3 % 0.9-7.0 [facility] Erythrocyte distribution wid th Auto (RBC) [Ratio]on 01-18-2024 Erythrocyte distribution width (RBC) [Ratio] 13.6 % 11.0-15.0 [facility] Estimated glomerular filtrat ion rate (GFR) non- Americanon 01-18-2024 GFR/1.73 sq M.predicted among non-blacks MDRD (S/P/Bld) [Vol rate/Area] 48 mL/min/{1.73_m2} Low >=60 [facility] Hematocrit Auto (Bld) [Volum e fraction]on 01-18-2024 Hematocrit (Bld) [Volume fraction] 37.0 % Low 42.0-54.0 [facility] Hemoglobin [Mass/volume] in Bloodon 01-18-2024 Hemoglobin (Bld) [Mass/Vol] 11.7 g/dL Low 14.0-18.0 [facility] Laboratory - Chemistry and C hemistry - challengeon 01-18-2024 Calcium [Mass/Vol] 8.6 mg/dL 8.5-10.1 [facility] Chloride [Moles/Vol] 103 mmol/L 98-107 [facility] CO2 [Moles/Vol] 30.4 mmol/L 21.0-32.0 [facility] Creatinine [Mass/Vol] 1.44 mg/dL High 0.70-1.30 [facility] GFR/1.73 sq M.predicted MDRD (S/P/Bld) [Vol rate/Area] 58 mL/min/{1.73_m2} Low >=60 [facility] Glucose [Mass/Vol] 140 mg/dL High 74-106 [facility] Potassium [Moles/Vol] 4.5 mmol/L 3.5-5.1 [facility] Sodium [Moles/Vol] 140 mmol/L 136-145 [facility] Urea nitrogen [Mass/Vol] 17.0 mg/dL 7.0-18.0 [facility] Urea nitrogen/Creatinine [Mass ratio] 11.8 mg/mg [facility] Laboratory - Hematology and Cell countson 01-18-2024 Immature granulocytes/100 WBC (Bld) 0.0 % 0.0-0.5 [facility] Leukocytes [#/volume] correc iván for nucleated erythrocytes in Blood by Automated counon 01-18-2024 WBC corrected for nucl RBC Auto (Bld) [#/Vol] 4.8 10 3/uL 4.0-11.0 [facility] Lymphocytes Auto (Bld) [#/Vo l]on 01-18-2024 Lymphocytes (Bld) [#/Vol] 1.6 10 3/uL 1.2-3.8 [facility] Lymphocytes/100 WBC Auto (Bl d)on 01-18-2024 Lymphocytes/100 WBC (Bld) 33.8 % 20.5-60.0 [facility] MCH Auto (RBC) [Entitic mass ]on 01-18-2024 MCH (RBC) [Entitic mass] 28.3 pg 25.9-34.0 [facility] MCHC Auto (RBC) [Mass/Vol]on 01-18-2024 MCHC (RBC) [Mass/Vol] 31.6 g/dL 29.9-35.2 [facility] MCV Auto (RBC) [Entitic vol] on 01-18-2024 MCV (RBC) [Entitic vol] 89.6 fL 80.0-94.0 [facility] Monocytes Auto (Bld) [#/Vol] on 01-18-2024 Monocytes (Bld) [#/Vol] 0.6 10 3/uL 0.3-0.8 [facility] Monocytes/100 WBC Auto (Bld) on 01-18-2024 Monocytes/100 WBC (Bld) 11.8 % 1.7-12.0 [facility] Neutrophils Auto (Bld) [#/Vo l]on 01-18-2024 Neutrophils (Bld) [#/Vol] 2.5 10 3/uL 1.4-6.5 [facility] Neutrophils/100 WBC Auto (Bl d)on 01-18-2024 Neutrophils/100 WBC (Bld) 51.7 % 43.0-75.0 [facility] No Panel Informationon 01-17 Eosinophils # (Auto) 0.1 10 3/uL 0.0-0.7 [facility] Immature Granulocyte # (Auto) 0.00 10 3/uL 0.00-0.03 [facility] Orders Onlyon 01-18-2024 Orders Only [id number] Oliver Goncalvesen e R 1945 M Date Provider Department Center 01/18/2024 AMY PARRISH [facility] [place] [facility]AS Family History Problem Relation Age of Onset Cancer Mother Heart attack Other Family Status - Relation Status Age at Mother Other Normal [facility] Platelet mean volume Auto (B ld) [Entitic vol]on 01-18-2024 Platelet mean volume (Bld) [Entitic vol] 11.4 fL 9.5-13.5 [facility] Platelets Auto (Bld) [#/Vol] on 01-18-2024 Platelets (Bld) [#/Vol] 186 10 3/uL 150-450 [facility] RBC Auto (Bld) [#/Vol]on RBC (Bld) [#/Vol] 4.13 10 6/uL Low 4.70-6.10 [facility] Serum or plasma anion gap de terminationon 01-18-2024 Anion gap [Moles/Vol] 11.1 mmol/L [facility] Prep for Procedureon 024 Prep for Procedure [id number] Oliver Goncalvesen e R 1945 M Date Provider Department Center 11/24/2023 MADISON MOSES Family History Problem Relation Age of Onset Cancer Mother Heart attack Other Family Status - Relation Status Age at Mother Other Normal [facility] Optical coherence tomography study reporton 10-28-2023 [facility] Radiology Study observation (narrative) [facility] Prep for Procedureon 024 Prep for Procedure [id number] Oliver Goncalvesen e R 1945 M Date Provider Department Center 10/27/2023 MADISON MOSES Family History Problem Relation Age of Onset Cancer Mother Heart attack Other Family Status - Relation Status Age at Mother Other Normal [facility] Orders Onlyon 10-25-2023 Orders Only [id number] Oliver Goncalvesen e R 1945 M Date Provider Department Center 10/25/2023 [id number], [facility] Family History Problem Relation Age of Onset Cancer Mother Heart attack Other Family Status - Relation Status Age at Mother Other [facility] Office Visiton 10-24-2023 Follow-up visit [id number] IvannaAmina Blackman 1945 [facility] Provider Department [place] 10/24/2023 MAGGY LEBRON TIMO Santiago Family History Problem Relation Age of Onset Cancer Mother Heart attack Other Family Status - Relation Status Age at Mother Other Level of Service:90072 OR OFFICE/OUTPATIENT ESTABLISHED LOW MDM 20 MIN [facility] Prep for Procedureon 024 Prep for Procedure [id number] MichOliver ramireznick Blackman 1945 [facility] Department [place] 10/17/2023 MADISON MOSES Family History Problem Relation Age of Onset Cancer Mother Heart attack Other Family Status - Relation Status Age at Mother Other [facility] 36on 10-05-2023 37 Patient underwent hi s pre-LAAO JESSICA. He is a candidate for an occlusive device. Spoke to patient regarding next steps. He needs to have shared decision documentation with another physician. 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 Discussed possible procedure date of 11/01/2023. He states he would consider this and would further discuss with his daughter. Of note, he is planning a trip to [place] for 1 month mid October and he will return the end of November. [facility] Telephoneon 10-05-2023 Telephone [id number] Amina Goncalves 1945 [facility] Department [place] 10/05/2023 MADISON MOSES Family History Problem Relation Age of Onset Cancer Mother Heart attack Other Family Status - Relation Status Age at Mother Other [facility] Eric 09-16-2023 ANES ------ -- Attestation signed [...] 09/16/23 0900 Procedure: TRANSESOPHAGEAL ECHO (JESSICA) Location: [facility] Clinical information reviewed: Allergies Meds Physical Exam Airway Mallampati: II Cardiovascular Rhythm: regular Rate: normal Dental Pulmonary Breath sounds clear to auscultation Abdominal Anesthesia Plan ASA 3 other (Moderate sedation) Anesthetic plan and risks discussed with patient. Use of blood products discussed with patient who. Plan discussed with fellow and attending. Additional Equipment Requests Normal [facility] HPon 09-16-2023 HP ------ -- Attestation signed by [...] there are no changes to the H&P. [facility] NURSNOTEon 09-16-2023 NURSNOTE RN educated pt on d/ c instructions. RN encouraged pt to voice any questions or concerns. Pt verbalizes no questions or concerns at this time. Normal [facility] NURSNOTE Bedside swallow stud y completed and passed. [facility] Telephoneon 09-15-2023 Telephone [phone] Amina Goncalves james Blackman 1945 M Date Provider Department Center 09/15/2023 RUSTY EN[place] [facility] [place] [facility] Family History Problem Relation Age of Onset Cancer Mother Heart attack Other Family Status - Relation Status Age at Mother Other [facility] HPon 09-06-[address] [facility] Cardiology - [facility] Subjective Tito Goncalves is a 78 y.o. year old male patient being seen to discuss LAAO. He presented to [facility] ED in Jun 2023 for fall. He is anticoagulated with warfarin for afib. Back in December 2022 he had brain bleed s/p fall. Was treated at [facility]. He denies chest pain, SOB, and [...] In April 2019 he presented to the [facility] with atrial fibrillation with controlled ventricular [...] 1 tablet (more content not included)... Normal [facility] Office Visiton 09-06-2023 Follow-up visit [id number] Amina Goncalves 1945 M Date Provider Department Center 09/06/2023 OLIVER RUELAS TIMO Santiago Family History Problem Relation Age of Onset Cancer Mother Heart attack Other Family Status - Relation Status Age at Mother Other Level of Service:98516 OR OFFICE/OUTPATIENT ESTABLISHED HIGH MDM 40-54 MIN Normal [facility] Coding Summaryon 07-11-2023 Coding Summary HTMLBase 64 NoiaipjtINk1nBg+PGhlYWQ+PE 7VHIAkL30qzVImsV2zU3SEKDmB NsmbQIOFLMsBGuGiovTrJC0fjZ NjZXJu IC8+DW2mVOAbOgdczFUhm8E5yE Y0J41utq3cKIuwqTH6OZSwTeJj xuzbt4sfvOj7FCdvBfpzPnHk UTNnpB69RNQ2vE79Bl16dUVdlC Ntz8wemJn3CxJjIHVyXJI4dJnb OZkas2XaCGDdH81tuFRou8G5 KHIvkYcgmMKhUkVvmJP0vW7lCM xfdghvs8fyrpxeIlw7ca94zZUx h6P6zAH5M1UrfbP8KYRszWWr NbuohNTZrI5wgxhjl0qhdoryZr CoXNIeNGe0DYk7HXMaiQodBoKx QE96HXR8DRDstrYtP8ZeSBFg aTcdMzX1t2D7Ly9BJ5ZODqnnH9 VNTUFSWTwvdGQ+KN24uy86O6Xo MndpRbo9AAGeCFU1wTK0jV3n BEPfHJxwu8P2rRD4X6FbnuKjkr 1gm7pjFEMhXGnmE88ubXLej7S5 GNOyrTT2DDNdbJltFgUrsO85 Oyc+FTXgaWagr7JeUlkpq9cwp4 zyjBx4RkneKNXjznDwfQfqNLE3 v0UyAh9vOYAkeSS2pXN4zX8l YqNbBzN7NYgaH607CaTqvFBxUx fhB31nJ5VeiDU+NZDtQfc6GHFs tMqtKQ9qA3MzKADbfakprOWp cRbdNP1tVZJowaheFELyoX9eKN IwK6b4UaKjNsV4ORwvY9XwZWXq dywlTv73mG7uXlGuQnC8WCre J1EwfbD9RPRuvOMcECkxSML2I6 2gw1M6ECCtUESzRUI2gCA2aJ6i bGlnbjogbGVmdDsgdmVydGlj WOaxFGooR807JGLvgCtrCwRcMX luZyBEYXRlOiAgMTAvMTYvMjAy MzwvdGQ+VBAqQLB5wDgtVAQv aETsREvvGt2puDzerKytDY5kWC QasofwLYXhtM7aDHQgdWKepRlu GK5hKFOakpwwx743BmLkZKQ1 HGHvnHZeD5QxwB4eTdJiKPAxAD UeP5IbhUOmGPujZ762ILggKmM8 YNZuguJsP8BoMCVssBbzLjF1 l1Y1El1Ku6BmotwdU4GiiMHjQe DjZvguGBu6U9PkSciqzKL+PC90 BNWhLC07PTf5HHX6mYifECxv FKEoA4UyrB9dWoXsILJiOMLdSn c+PHRhYmxlIHdpZHRoPScxMDAl XcDdkKknHY5cTv9wVHVoMGIz rEiaeKZmQtNqv0qcPFLiRBrqFC 6tuMulY2RrnME3THFkg6d7Hf12 L14nF7LgkXI+EWFglLG9pDX7 tR9nMwYxUkJ4BCsyZ708YcCeqC IcQtibm5uix5jhkJz7LlY9NISw idVdiSxuBLP7c5MkGh22W62j IHdpZHRoPSIxNSUiIHZhbGlnbj 0haM6qKb8+KXAxkPY2fHE6wA4x GqKaZkQ5TYkmP766JpAlxGMw Ahiyr8mvn8remUs0JlRgUUKxwu TaoYszNTS4w4XzHm75X0LliTyc i9VsDfq1fv25aKHlx3F5tVG2 D7DbGVUklqcxbJKpfRqpYD1nAE HyupliNJFllD5uWZDbR7z9DxTo NaI3OMnaH2DcqhC6KZWgpVGn OPMzyRKNoN9lreohg1aclitlCs EaRKDcVDz7FLf2HPJnvKbsJuAq AWZ0PdZ0TML6vDFncR9gcAmj kyqvlI0gJob+SOX3hVSmtOMXJH 1lOjwvdGQ+OPIqKRB6pEcsQYyw NWZtaZ2kZLPyO4r8KoTnNyH1 STbfN6BaueI6NVRedNHyTIIhgU GUiA3sfgvtm9ddselhWxFhLQRw MGz8DUw1IFPqhIcaSnNtGRE6 LpP0BIZ8xIUwqT7ocQlohwqtwM 9wOyc+FtazxTndCWA9ZPi8T7Mc Too2RJYlcBcmUF9hrBYhIUbh Xg4bbPuncJxoNM9pMRXullzcd3 21QhHcn8umZNQgiPYsIAcnZQQ4 M37wj8I8CPMfYPHfNLS5gPE9 sT9ayUqzbbdhtZPkpVuynjPhiQ ggKUgiQGefA099XSGgqTqaTlMo GAm0N3GvJmb6JATpvMtrJS5d uBSiNTzqCj5tpPbyjAdcUJ4oPX Vhuayny909EpAjc9eyZDExhKQd RAogGUX4T04cv5T6OZLiUEGj QLB4dJI9uX5jtLukkqqgtAPsfO ynnwEzcXsvAZauUSwkB499RRFm jBysNsGqyRy7R9JpVrh1UQFa bCqqGW8zmODgMGbkDl3maRcnxI syVH7aEQValsccz400SmNeo0kj CXMubEMoIWfbCWU1R44pp8N4 GKJrEDLcDDE6qRM6cO8uxBfdtz ogbGVmdDsgdmVydGljYWwtYWxp Z333VPQqjXgyTyRnaWjaqxLc BZslMFl7K4PrIieszKS+PC90YW QfQG78yUAndRVwt9qmvNk5OtZj DTIxXIL4lReyJQaah0QuFMZt F64buBDow3O9RKTjoPvdaXEiMd PfbNE5rY6iCSqswtfbb7rczmjw Ngvox2ecsd64gF48S87pLNuh VSMhYBEoWQSuHBSskUegji7ktU 9wIi8+LJXqkQA0dXN7rD9vGUWn WuC4KJuqP227CyPucXViUmcc a6gng1hluOf7CaA0ZJEtmiEnoU oeKQJ2j1KdWm30U86eGKaoJBNi CNZdGCEhSBZapJdxda2ndX8t Ii8+XVTzkZF7xUA5vO6aFgHfZe C2OMgdL240XmVscANiBvbhD52n W4QroCP+MZLaNcb4ODDbaEwx SV4ciPCvAVwwPf3cZBN5SkUrJv MoXClsY1FaNJYlnxskojpnjLF4 UOLsXXMvqB80Uy0enRvqJJIv rHOQcY2nigldk1wqrozoLtBbUR QkRVd6SOo6UFSyvTvxKdOaLLW6 ZyV4TKI3sFOpsA4mnEggrbcv fH7nR8GxBEIyckcnSx93yZ0vFb QoCqJ4JFktInh+H9DNUSTlXEBJ K2RARVWQRIXBCPCBHL93QD68 vDAns1P7oMX3G8XdPABepxxzcz ttoGM9SSSyXGJutV26eGRbFOlt Eb6tt8G6k093NZOoBSKxrJ45 Vd8rdBkhYSCjuGWKrJ0yveetr5 xvcvphYpAdICCxBNy0DTw4FDQn wXcwHjCeMGM8AtH4SCD8bORr qM7pxPlnnzikcP2iExo+MDQvMj noZDy9LwoquAZ+LADjPNX9bUtf VZwlZYCiiV8bKBElA1o1WnGr TvQ2ZPebV5LsWDTsjijtEr88uJ 6fIeGbRbT2TIcxS2NaocD3OMSx zENoFObfQFR1B32rw5Q0XGVo BCWdGDJ5qAM7xP0teWrzyggxjU RalHhqbdFvoRydQImyNZnfQ446 AZLbjBzeDtv5VEkcFHUhUW90 MV88dMPtz7G6fJF6C0WzGTGojs rrzmktdWP1FVAlVNSkuX70tRKq NRhnIb8sr2I3d893BDGoIQMf bY85Eo6sdOxeCPEtcDHOaP2iyi nvm4sodgbsHbDaPVMuRGk3PJf8 OXNxhJdcHkSkJAH4LiJ8KDU9 gQXwdU8ocDprfqbkrQ9uAlw+TU FMRTwvdGQ+HHNlPCK3jPusBUef UWLhrG3qOWVwK5p0GhAiQcE2 WPtiK5UmQFRgvpqjFe65nH4tZw XcDcQ8KAlnY8FyxvF1UYBzqGGa PLveEWI5Q20vs3P1CKFjOJHw GHS9kMM0iG7buBlwhjrbbXNrqM umxiRvnPvfZAlePFmrT015GVFe zYftZuDkYBDiLI1hcBtsmKZ+ NF19sv29D3SmEcelXbi0MVQxTJ R2mOX5lZ4kFJUiXCewr6E4xWK0 B4MpecWmzm3yx3xdIAFrXVap Y19scSOxn1R0XDYgaVL9QMSvyA rvGrVawX00Zfb+QVXuuDpwk2Ju Kmtqg9udo1uhfXi9JlQgXBVa wkFmxDztZUM5l8NtRd52K60aOZ ptGIYoPMEwGZNhJDMmhSlpaw3r iN7uEn2+VQItiXR6cIH7gA6y FxIaOhE2GOycX588RoNriGNxRf bcq9eth1wceSf3UnDdAFPayqSh aSrxVMZ5k2PzLw27I1DbtLks m2OjOju1qh52dZDvq3L9aQD6T8 YfBUFauqmfaMCdbEjyKX7sCSYg hirbCRDnbH9xVAHoB6a3HnAa HhQ9SSljE1XgmiK8RLZpjMOuUA TujUYHwL9kvnvxb3rlteccCiBr WUXqCSe3LMf6SCUkeIiaAmTa PWL9AfQ3ROD7wPWdhS9ftZvcic jjmL4jFwb+XCr1l1orxZZnJN5h hVL7LC44MM47pBFyt0M0rZG9 Z7LkIRXhhuhfvvpqpGH0PDSlRT ApkU53Nf3msXqsRh4aNSFsJMF1 DVYjvERvF6OauT4yIyKlUMCd GPIbY3XovIHzJMqlN329CDjaCb A2ONXwzcWoF8AoONMohExjEgH8 k4S8Uq3QSX70JH40AP94oUIy i3Y0gJU7T4JrFKIzkzzoxwjvqP Q9BGDyKWYciP86Bu1qtQlbQf7g LMSpNYD2MABinDMvX3LkhC2y RpPdAWEoREDqZ5SbyUQhKXefK1 35MEmjUaT5YBMfumRkM0YvANOl cNjnZtS9i2K3Eq1FZm76JN69 RJ19xSBxd3D1gNT5I8CdXEUndf yadzzvuHF3INOvIEHhrT82Mo4n lLeqZt6cYLRpSNS2PEOnxLYr Q3ArvZ4pBhHtTDXmKUSwZ3FiqT UwKDatQ672DYqoQmV2EHKpteNp U1MmTYGadThjYxH8l5V6Qy3B LDsxdxu5X2BhAlcgjYU+PC90YW AyXU88bSJvaGTei0pahIn5XyQw YHMrGDJ2jRbaSUdmt0TtTMBy Y29 (more content not included)... [facility] ED Clinical Summaryon 2022 ED Clinical Summary [facility] Emergency Department [address] [place] [address] ED Clinical Summary PERSON INFORMATION Name: TITO GONCALVES Age: 78 Years Sex: MALE : 1945 MRN: Acct#: Visit Reason: Eye Injury; Fall; FALL/LT EYE LAC Arrival: 07/05/2023 16:48:26 Discharge: 07/05/2023 18:40:00 LOS: 000 01:52 Check In: 07/05/2023 16:48:26 Checkout:07/05/2023 18:40:00 [facility] [address] PCP: Augustine Metz PROVIDER INFORMATION Provider Role [...] Patient/family/caregiver verbalizes understanding of instructions given Comment: [facility] ED Patient Education Noteon 07-05-2023 ED Patient Education Note Education Materials [facility] ED Patient Summaryon 023 ED Patient Summary [facility] Emergency Department [address] [place] [id number] PATIENT DISCHARGE INSTRUCTIONS Patient Information Name: TITO GONCALVES Age: 78 Years Date of : 1945 Reason For Visit: Eye Injury; Fall; FALL/LT EYE LAC Arrival Time: 07/05/2023 16:48:26 Primary Care Physician: Augustine Metz Attending Physician: Colin Song DO Comment: Visit Diagnosis: Diagnoses This Visit Eye Injury ([id number]) Fall ([id number]) The Pharmacy at [facility] is open Tuesday through Tuesday from [...] alcohol and/or drug addiction problems; contact the [facility] 18/04 Crisis Hotline -Text 4BMKA lc 799755. If you received any narcotics, sedation, or [...] and treatment you received today in the [facility] Emergency Department were for an urgent problem and are not intended as complete care. It is important for you to follow up with a doctor, nurse practitioner, or physician?s medication assistant for ongoing care. If your symptoms [...] so we can reach you if necessary. [facility] Emergency Department has provided you with a complete list of medications post discharge. Please inform your material damage appraiser/provider of your visit and for further instruction [...] relieve symptom (more content not included)... Normal [facility] Phone Msgon 02-01-2023 Phone Msg - [...] mailed to his address on file. Normal [facility] CBC AUTO DIFFon 2023 BASO # 0.0 103/ul Normal 0.0-0.1 [facility] Comment on above: Performed By: #### C BC #### [facility] [address] [place] [address] Dr. Arjun Menjivar Basophils/100 WBC (Bld) 0.4 % Normal 0.2-2.0 [facility] Comment on above: Performed By: #### C BC #### [facility] [address] [place] [address] Dr. Arjun Menjivar EO # 0.1 103/ul Normal 0.0-0.7 [facility] Comment on above: Performed By: #### C BC #### [facility] [address] [place] [address] Dr. Arjun Menjivar Eosinophils/100 WBC (Bld) 1.5 % Normal 0.9-7.0 [facility] Comment on above: Performed By: #### C BC #### [facility] [address] [place] [address] Dr. Arjun Menjivar Erythrocyte distribution width (RBC) [Ratio] 13.7 % Normal 11.0-15.0 [facility] Comment on above: Performed By: #### C BC #### [facility] [address] [place] [address] Dr. Arjun Menjivar Hematocrit (Bld) [Volume fraction] 41.9 % Critically low 42.0-54.0 [facility] Comment on above: Performed By: #### C BC #### [facility] [address] [place] [address] Dr. Arjun Menjivar Hemoglobin (Bld) [Mass/Vol] 13.7 g/dL Critically low 14.0-18.0 [facility] Comment on above: Performed By: #### C BC #### [facility] [address] [place] [address] Dr. Arjun Menjivar IG # 0.02 10e3/ul Normal 0.00-0.03 [facility] Comment on above: Performed By: #### C BC #### [facility] [address] [place] [address] Dr. Arjun Menjivar IG % 0.3 % Normal 0.0-0.5 [facility] Comment on above: Performed By: #### C BC #### [facility] [address] [place] [address] Dr. Arjun Menjivar LYMPH # 1.4 103/ul Normal 1.2-3.8 [facility] Comment on above: Performed By: #### C BC #### [facility] [address] [place] [address] Dr. Arjun Menjivar Lymphocytes/100 WBC (Bld) 16.9 % Critically low 20.5-60.0 [facility] Comment on above: Performed By: #### C BC #### [facility] [address] [place] [address] Dr. Arjun Menjivar MANUAL DIFF REQ NO Normal [facility] Comment on above: Performed By: #### C BC #### [facility] [address] [place] [address] Dr. Arjun Menjivar MCH (RBC) [Entitic mass] 28.8 pg Normal 25.9-34.0 [facility] Comment on above: Performed By: #### C BC #### [facility] [address] [place] [address] Dr. Arjun Menjivar MCHC (RBC) [Mass/Vol] 32.7 g/dL Normal 29.9-35.2 [facility] Comment on above: Performed By: #### C BC #### [facility] [address] [address] [address] Arjun Menjivar MCV (RBC) [Entitic vol] 88.2 fL Normal 80.0-94.0 [facility] Comment on above: Performed By: #### C BC #### [facility] [address] [place] [address] Dr. Arjun Menjivar MONO # 0.5 103/ul Normal 0.3-0.8 [facility] Comment on above: Performed By: #### C BC #### [facility] [address] [place] [address] Dr. Arjun Menjivar Monocytes/100 WBC (Bld) 5.9 % Normal 1.7-12.0 [facility] Comment on above: Performed By: #### C BC #### [facility] [address] [place] [address] Dr. Arjun Menjivar NEUT # 6.0 103/ul Normal 1.4-6.5 [facility] Comment on above: Performed By: #### C BC #### [facility] [address] [place] [address] Dr. Arjun Menjivar Neutrophils/100 WBC (Bld) 75.0 % Normal 43.0-75.0 [facility] Comment on above: Performed By: #### C BC #### [facility] [address] [place] [address] Dr. Arjun Menjivar Platelet mean volume (Bld) [Entitic vol] 11.4 fL Normal 9.5-13.5 [facility] Comment on above: Performed By: #### C BC #### [facility] [address] [place] [address] Dr. Arjun Menjivar PLT 169 103/ul Normal 150-450 [facility] Comment on above: Performed By: #### C BC #### [facility] [address] [place] [address] Dr. Arjun Menjivar RBC 4.75 106/ul Normal 4.70-6.10 [facility] Comment on above: Performed By: #### C BC #### [facility] [address] [place], [place] [address] Dr. Arjun Menjivar WBC 8.0 103/ul Normal 4.0-11.0 [facility] Comment on above: Performed By: #### C BC #### [facility] [address] [place] [id number] Arjun Menjivar CT CSPINE WO CONon [...] SALINA ESPINOZA Date: 2023 16:25 Normal [facility] CT HEAD WO CONon 2023 CT [...] TOSHIA ANDRES Date: 2023 21:30 Normal [facility] PROF 14(COMP METB)on 023 Albumin [Mass/Vol] 3.7 g/dL Normal 3.4-5.0 [facility] Comment on above: Performed By: #### C MP ####[facility] [address] [place] [address]Dr. Arjun Menjivar Albumin/Globulin [Mass ratio] 1.1 {ratio} Normal [facility] Comment on above: Performed By: #### C MP ####[facility] [address] [place] [address]Dr. Arjun Menjivar ALP [Catalytic activity/Vol] 87 U/L Normal 46-116 [facility] Comment on above: Performed By: #### C MP ####[facility] [address] [place] [address]Dr. Arjun Menjivar ALT [Catalytic activity/Vol] 26 U/L Normal 16-63 [facility] Comment on above: Performed By: #### C MP ####[facility] [address] [place], [place] [address]Dr. Arjun Menjivar Anion gap [Moles/Vol] 9.2 mmol/L Normal [facility] Comment on above: Performed By: #### C MP ####[facility] [address] [place], [place] [address]Dr. Arjun Menjivar AST [Catalytic activity/Vol] 20 U/L Normal 15-37 [facility] Comment on above: Performed By: #### C MP ####[facility] [address] [place], [place] [address]Dr. Arjun Menjivar Bilirubin [Mass/Vol] 0.4 mg/dL Normal 0.2-1.0 [facility] Comment on above: Performed By: #### C MP ####[facility] [address] [place], [place] [address]Dr. Arjun Menjivar Calcium [Mass/Vol] 9.1 mg/dL Normal 8.5-10.1 [facility] Comment on above: Performed By: #### C MP ####[facility] [address] [place], [place] [address]Dr. Arjun Menjivar Chloride [Moles/Vol] 105 mmol/L Normal 98-107 [facility] Comment on above: Performed By: #### C MP ####[facility] [address] [place], [place] [address]Dr. Arjun Menjivar CO2 [Moles/Vol] 28.9 mmol/L Normal 21.0-32.0 [facility] Comment on above: Performed By: #### C MP ####[facility] [address] [place], [place] [address]Iq. Arjun Menjivar Creatinine [Mass/Vol] 1.23 mg/dL Normal 0.70-1.30 [facility] Comment on above: Performed By: #### C MP ####[facility] [address] [place], [place] [address]Vu. Arjun Menjivar EGFR-AF [place] >60 Normal >=60 [facility] Comment on above: Performed By: #### C MP ####[facility] [address] [place], [place] [address]Yl. Arjun Menjivar EGFR-NON AF [place] 57 mL/min/1.73m2 Critically low >=60 [facility] Comment on above: Performed By: #### C MP ####[facility] [address] [place] [address]Dr. Arjun Menjivar Globulin (S) [Mass/Vol] 3.4 g/dL Normal [facility] Comment on above: Performed By: #### C MP ####[facility] [address] [place] [address]Dr. Arjun Menjivar Glucose [Mass/Vol] 126 mg/dL Critically high 74-106 [facility] Comment on above: Performed By: #### C MP ####[facility] [address] [place] [address]Dr. Arjun Menjivar Potassium [Moles/Vol] 4.1 mmol/L Normal 3.5-5.1 [facility] Comment on above: Performed By: #### C MP ####[facility] [address] [place] [address]Dr. Arjun Menjivar Protein [Mass/Vol] 7.1 g/dL Normal 6.4-8.2 [facility] Comment on above: Performed By: #### C MP ####[facility] [address] [place] [address]Dr. Arjun Menjivar Sodium [Moles/Vol] 139 mmol/L Normal 136-145 [facility] Comment on above: Performed By: #### C MP ####[facility] [address] [place] [address]Dr. Arjun Menjivar Urea nitrogen [Mass/Vol] 12.0 mg/dL Normal 7.0-18.0 [facility] Comment on above: Performed By: #### C MP ####[facility] [address] [place] [address]Dr. Arjun Menjivar Urea nitrogen/Creatinine [Mass ratio] 9.8 mg/mg Normal [facility] Comment on above: Performed By: #### C MP ####[facility] [address] [place] [address]Dr. Arjun Menjivar PROTIMEon 2023 INR Coag (PPP) [Relative time] 2.90 {INR} Normal [facility] Comment on above: Performed By: #### P TT, PT ####[facility] [address] [place], [place] [address]Dr. Arjun Menjivar INR GUIDELINES SEE BELOW Normal [facility] Comment on above: Result Comment: PIOTR RED INR: 2.0 - 3.0 CONDITIONS NOT LISTED BELOW 2.5 - 3.5 FOR PROSTHETIC HEART VALVE REPLACEMENT 2.5 - 3.5 RECURRENT THROMBOSIS Performed By: #### P TT, PT ####[facility] [address] [place], [place] [address]Dr. Arjun Menjivar PT Coag (PPP) [Time] 28.9 s Critically high 9.0-11.6 [facility] Comment on above: Performed By: #### P TT, PT ####[facility] [address] [place], [place] [address]Dr. Arjun Menjivar PTTon 2023 aPTT Coag (Bld) [Time] 37.7 s Critically high 22.3-36.2 [facility] Comment on above: Performed By: #### P TT, PT ####[facility] [address] [place], [place] [address]Dr. 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 Notes: Normothermia. Normal [facility] Anesthesia Patient: YE GONCALVES Age: 77 [...] release 325 mg = 1 caps, ORAL, [id number] trazodone = Desyrel 50 mg, ORAL, BID [...] available Procedure history: Endoscopic Retrograde Cholangiopancreatography (ERCP). ([id number]) on 11/09/2022 at 77 Years. Endoscopic Retrograde Cholangiopancreatography (ERCP). (44167) on 08/14/2021 at 76 Years. Esophagogastroduodenoscopy , flexible, transoral; with endoscopic ultrasound examination limited to the esophagus, stomach or duodenum, and adjacent structures (78009) on 07/10/2021 at 76 Years. Social History [...] palate, fauces, uvula visible). Assessment and Plan [place] Society of Anesthesiologists (ASA) physical status classification: [...] recognition software. Verbal misinterpretations may occur. 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 Voided : No Pain Level and Site : 0 Kaylyn Bettencourt RN - 11/09/2022 7:09 EST Present on Admission Medical Devices : None Medical Devices for Med Administration : None Kaylyn Bettencourt RN - 11/09/2022 7:09 EST Vikas Coma Eye Opening Response Vikas : Spontaneously Best Verbal Response Vikas : Oriented Best Motor Response Vikas : Obeys simple commands Vulcan Coma Score : 15 Kaylyn Bettencourt RN - 11/09/2022 7:09 EST Advance Directive *Advance Directive : Yes Sg GAVIN, [facility] 11/09/2022 7:09 EST Outpatient Fall Risk GEN_Fall Risk Indicators_49304 : Age 65 or greater, Medications altering equilibrium or cognitive judgement Fall Risk Band On : Yes Sg GAVIN, [facility] 11/09/2022 7:09 EST Screening-Safety Domestic Concerns : None Feeling Down, Depressed, Hopeless : Not at all Little Interest - Pleasure in Activities : Not at all Initial Depression Screen Score : 0 Depression Screening Score 0 : No Sg GAVIN, [facility] 11/09/2022 7:09 EST Education Barriers to Learning : None evident TeachBack Methodology : TeachBack, Demonstration, Explanation, Printed Material Sg GAVIN, [facility] 11/09/2022 7:09 EST ENDO Education Activity Expectations : Verbalizes understanding Anesthesia/Sedation : Verbalizes understanding Endo Post Procedure Care : Verbalizes understanding Follow-Up Care/Appointment : Verbalizes understanding Safety : Verbalizes understanding Sg GAVIN, [facility] 11/09/2022 7:09 EST Normal [facility] Inpatient Patient Summaryon 11-09-2022 Inpatient Patient Summary [facility] Discharge Instructions [address] [place] [address] \.br\(Patient Copy)\.br\ \.br\ \.br\Name: TITO GONCALVES Yehuda : 1945 \.br\Diagnosis: \.br\ \.br\Allergies: sulfa drugs; penicillins; iodine topical\.br\ \.br\Registration Date: 11/09/22\.br\.br\.br\ \.br\ Current Date Time: 11/09/2022 08:44:54 \.br\ \.br\Address: [address] [facility] [address] \.br\Phone: [phone] \.br\ \.br\Primary Care Provider: \.br\Name: AUGUSTINE METZ\.br\Phone: [phone] \.br\ \.br\Thank you for choosing [facility] for your care. You are very important to us. Our goal is to demonstrate our high quality medical care and provide you with a very good patient experience.\.br\ You may receive a survey about our service. Please take the time to complete the survey and return it so we can continue to enhance our service.\.br\ Thank you again for allowing [facility] to care for your medical needs. If you have any questions about your care or follow up information please contact your doctor.\.br\.br\Follow-up Instructions\.br\.br\.br \With: Address: When: \.br\PUJA HOLBROOK, Gastroenterology [address], [address] [place] [address]\.br\ Business (1) Within Call for Appointment \.br\.br\.br\.br\.br\P [...] ient education materials, if any, will display below\.br\[facility] ENDOSCOPY DEPARTMENT\.br\.br\FOLLOW UP CARE\.br\? For biopsy results, [...] tarry sto (more content not included)... Normal [facility] OR Nursing Record - Endoon 0 11-09-2022 OR Nursing Record - Endo OR Nursing Record - Endo Summary Primary Physician: PUJA HOLBROOK MD Finalized Date/Time: 11/09/22 08:27:34 Pt. Name: TITO GONCALVES/Sex: 1945 Male Med Rec #: [id number] Physician: Financial #: [id number] Pt. Type: A Room/Bed: / Admit/Disch: 11/09/22 06:11:45 - Institution: Case Times - Endo Entry 1 Patient In Room Time 11/09/22 07:43:00 Out Room Time 11/09/22 08:24:00 Anesthesia Facility Times Induction Time 11/09/22 07:48:00 Stop Time 11/09/22 08:15:00 [place] Protocol Yes Completed Surgery Start Time 11/09/22 07:50:00 Stop Time 11/09/22 08:15:00 Last Modified By: Martha Haider RN 11/09/22 08:21:39 Surgical Procedures - Endo Entry 1 Procedure ERCP Modifiers None Surgeon Procedure ERCP Primary Procedure Yes Description Primary Surgeon PUJA HOLBROOK MD Start 11/09/22 07:50:00 Stop 02/14/23 08:15:00 Anesthesia Type MAC Surgical Service SN [...] 2 Entry 3 Case Attendee YUSEF UMANZOR, PUAJ Haider RN, Martha Solomon RN, Minnie Role Performed Surgeon Primary Mutual Fund Sales Agent Primary Scrub Primary Time In 11/09/22 07:43:00 11/09/22 07:43:00 11/09/22 07:43:00 Time Out 11/09/22 08:24:00 11/09/22 08:24:00 11/09/22 08:24:00 Procedure ERCP(None) ERCP(None) ERCP(None) Last Modified By: Vitaly RN, Martha Haider RN, Martha Haider RN, Martha 11/09/22 08:21:41 11/09/22 08:21:41 11/09/22 08:21:41 Entry 4 Entry 5 Entry 6 Case Attendee Dena GAVIN, LESLI Shah DO, JYOTI Role Performed Mutual Fund Sales Agent Secondary Anesthesiologist Primary Anesthesia Asst/ACTUARIAL MANAGER Time In 11/09/22 07:43:00 11/09/22 07:43:00 11/09/22 [...] 08:23 Martha Haider RN 11/09/22 08:27 Normal [facility] Operative Reporton Operative Report Patient: YE [...] Notes: Follow-up in clinic as scheduled. Normal [facility] Comment on above: Order Comment: Ida sevilla Attachment [id number] can be viewed in source system Missing Attachment [id number] can be viewed in source system Missing Attachment [id number] can be viewed in source system Missing Attachment [id number] can be viewed in source system Missing Attachment [id number] can be viewed in source system Missing Attachment [id number] can be viewed in source system Result Comment: PACU Phase I - Endoon 2022 PACU Phase I - Endo PACU Phase I - Endo Summary Primary Physician: PUJA HOLBROOK MD Finalized Date/Time: 11/09/22 08:55:35 Pt. Name: TITO GONCALVES/Sex: 1945 Male Med Rec #: [id number] Physician: Financial #: [id number] Pt. Type: A Room/Bed: / Admit/Disch: 11/09/22 06:11:45 - Institution: PACU I Case Times - Endo Entry 1 In PACU I 11/09/22 08:25:00 Ready for Transfer 11/09/22 09:19:00 Last Modified By: Sariah Schreiber RN 11/09/22 08:55:34 Finalized By: Sariah Schreiber RN Document Signatures Signed By: Sariah Schreiber RN 11/09/22 08:55 Normal [facility] POC Glucoseon 11-09-2022 Glucose [Mass/Vol] 131 mg/dL High 72-100 [facility] Comment on above: Performed By: #### 1 [id number] ####[facility] [address] [place] [id number] Medical Director: Diogo Carcamo MD Preop - Endoon 11-09-2022 Preop - Endo Preop - Endo Summary Primary Physician: PUJA HOLBROOK MD Finalized Date/Time: 11/09/22 07:13:53 Pt. Name: TITO GONCALVES/Sex: 1945 Male Med Rec #: [id number] Physician: Financial #: [id number] Pt. Type: A Room/Bed: / Admit/Disch: 11/09/22 06:11:45 - Institution: Preop - Case Times - Endo Entry 1 Patient Arrival Time 11/09/22 06:31:00 Patient Ready for 11/09/22 07:11:00 Surgery Report Given to n/a Last Modified By: Kaylyn Bettencourt RN 11/09/22 07:13:51 Finalized By: Kaylyn Bettencourt RN Document Signatures Signed By: Kaylyn Bettencourt RN 11/09/22 07:13 Normal [facility] Provider Letter - Ambulatory on 11-09-2022 Provider Letter - Ambulatory AUGUSTINE METZ, [address] [facility] [address] RE: TITO GONCALVES 11/09/2022 Dear AUGUSTINE METZ [...] - (11/09/2022) GI ERCP with Anesthesia [facility] [place] Protocol/Pre-Proc TimeOut-Texton 11-09-2022 [place] Protocol/Pre-Proc TimeOut-Text [place] Protocol Entered On: 11/09/2022 7:13 EST Performed [...] Procedure Sedation Checklist : 11/09/2022 07:48 EST Mratha Haider RN - 11/09/2022 7:48 EST OR [...] Haider RN - 11/09/2022 7:48 EST Normal [facility] Phone Msgon 11-08-2022 Phone Msg - [...] 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 Normal [facility] MRI ABDOMEN WO CONon 023 MRI [...] by: SANTOS DC Date: 2022-11-01 09:53 Normal [facility] Phone Msgon 10-28-2022 Phone Msg [...] Number: H Did he say who his Clinical Appeals Rn was? From: Caren Carvalho RN To: Blanca Bazzi; Fela Alexandre; Sent: 10/28/2022 09:50:53 EST Subject: RE: Cardiac Clearance Caller Name: TITO GONCALVES; Caller Number: H He sees Dr. Metz sent LM for pt-Per Dr. Metz, pt can be off his Coumadin 5 days prior to his procedure. Normal [facility] AMB GI Physician Progress No irma 10-26-2022 AMB GI Physician Progress Note Chief Complaint Abdominal pain History of Present Illness 77-year-old male with recurrent history of choledocholithiasis last ERCP was done a year ago in [place] Patient had admission in hospital in [place] with fever and chills Patient has had [...] Height/Length Measured - in2: 72 in (10/26/22 14:56:) Body Mass Index Measured English2: 18.85 kg/m2 (10/26/22 14:56:00) BSA: 1.79 m2 (10/26/22 14:56:00) Ht/Wt Measurement Refused by Patient?2: No (10/26/22:56:) [...] Est Pt Mod MDM / 30-39 min 89149, 10/26/2022 16:13:00 EST, Abdominal pain / Pancreatic cyst MR CP, 10/26/2022, Routine, PAIN, Abdominal pain / Pancreatic cyst 2. Pancreatic cyst K86.2 Pancreatic cyst stable very low CEA levels suggestive of simple serous cyst versus inflammatory cyst. Asymptomatic Ordered: AMB Follow - Up Appt Amb, 10/26/2022 16:13:00 EST, 4 weeks AMB Office/Outpt Est Pt Mod MDM / 30-39 min 98054, 10/26/2022 16:13:00 EST, Abdominal pain / Pancreatic [...] extended release, 325 mg= 1 caps, ORAL, [id number] trazodone = Desyrel, 50 mg, ORAL, BID [...] Care Team Primary Care Physician AUGUSTINE METZ [phone] Attending Physician PUJA HOLBROOK MD [phone] . Health Maintenance Pending (in the next year) There are no current recommendations pending Satisfied (in the past 1 year) There are no satisfied recommendations within the defined date range Normal [facility] Comprehensive Intake - Texto n 10-26-2022 [...] in, 183 cm) Body Mass Index Measured Tuvaluan : 18.85 kg/m2 BSA Tu[place]uan : 1.79 m2 Ht/Wt Measurement Refused by [...] risk situation (congregated living, hemodialysis, infusion clinic, residential, assisted living, shelter, homeless longterm, etc.)? : No Lori Cintron MA - [...] Abnormal LFTs (liver function tests) (SNOMED CT :851933029 ) Name of Problem: Abnormal LFTs (liver function tests) ; Recorder: Blanca Bazzi; Confirmation: Confirmed ; Classification: Medical ; Code: 751427039 ; Contributor System: PowerChart ; Last Updated: 07/01/2021 12:43 EDT ; Life Cycle Date: 07/01/2021 ; Life Cycle Status: Active ; Vocabulary: SNOMED CT Arthritis (SNOMED CT :6135260 ) Name of Problem: Arthritis ; Recorder: Blanca Bazzi; Confirmation: Confirmed ; Classification: Medical ; Code: 5056100 ; Contributor System: MaxVisionChart ; Last Updated: 07/01/2021 12:43 EDT ; Life Cycle Date: 07/01/2021 ; Life Cycle Status: Active ; Vocabulary: SNOMED CT Choledocholithiasis (SNOMED CT :552818333 ) Name of Problem: Choledocholithiasis ; Recorder: PUJA HOLBROOK MD; Confirmation: Confirmed ; Classification: Medical ; Code: 079603317 ; Contributor System: PowerChart ; Last Updated: 07/01/2021 13:27 EDT ; Life Cycle Date: 07/01/2021 ; Life Cycle Status: Active ; Responsible Provider: PUJA HOLBROOK MD; Vocabulary: SNOMED CT Diabetes (SNOMED CT :710705226 ) Name of Problem: Diabetes ; Recorder: Blanca Bazzi; Confirmation: Confirmed ; Classification: Medical ; Code: 141581819 ; Contributor System: [employer] ; Last Updated: 07/01/2021 12:43 EDT ; Life Cycle Date: 07/01/2021 ; Life Cycle Status: Active ; Vocabulary: SNOMED CT Gallbladder disease (SNOMED CT :322196354 ) Name of Problem: Gallbladder disease ; Recorder: Blanca Bzazi; Confirmation: Confirmed ; Classification: Medical ; Code: 649201658 ; Contributor System: PowerChart ; Last Updated: 07/01/2021 12:44 EDT ; Life Cycle Date: 07/01/2021 ; Life Cycle Status: Active ; Vocabulary: SNOMED CT GERD (gastroesophageal reflux disease) (SNOMED CT :575326899 ) Name of Problem: GERD (gastroesophageal reflux disease) ; Recorder: Blanca Bazzi; Confirmation: Confirmed ; Classification: Medical ; Code: 761303512 ; Contributor System: PowerChart ; Last Updated: 07/01/2021 12:44 EDT ; Life Cycle Date: 07/01/2021 ; Life Cycle Status: Active ; Vocabulary: SNOMED CT Hypertension (SNOMED CT :5171267401 ) Name of Problem: Hypertension ; Recorder: Blanca Bazzi; Confirmation: Confirmed ; Classification: Medical ; Code: 2043847867 ; Contributor System: PowerChart ; Last Updated: 07/01/2021 12:44 EDT ; Life Cycle Date: 07/01/2021 ; Life Cycle Status: Active ; Vocabulary: SNOMED CT Irregular heart rhythm (SNOMED CT :463417350 ) Name of Problem: Irregular heart rhythm ; Recorder: Blanca Bazzi; Confirmation: Confirmed ; Classification: Medical (more content not included)... Normal [facility] Provider Letter - Ambulatory on 10-26-2022 Provider Letter - Ambulatory AUGUSTINE METZ, [address] [place] [address] RE: TITO GONCALVES 10/26/2022 Dear AUGUSTINE METZ [...] - (10/26/2022) *.AMB Office Visit Note [facility] Phone Msgon 10-22-2022 Phone Msg - From: Lise Lawrence MA To: Caren Carvalho RN; PUJA HOLBROOK MD; Sent: 10/22/2022 09:40:42 EST Subject: symptoms/appointment Caller Name: TITO GONCALVES; Caller Number: H Tito Berg daughter, Amna Sousa [phone] called. She is asking if he can [...] other dilemma is he is leaving for [place] on 11/13 for 6 weeks. From: Caren [...] him until December. He has moved to [facility] and Tito would be considered a new patient. His daughter did not feel he was acutely ill and that he can wait for the appointment next Tuesday. Normal [facility] GLYCOHEMOGLOBIN A1Con 2022 ADA RECOMMENDATION SEE BELOW Normal [facility] Comment on above: Result Comment: ADA RECOMMENDED LIMIT 4.0 - 6.0 ADA THERAPEUTIC TARGET < 7.0 ACTION SUGGESTED > 7.0 Performed By: #### A 1C ####[facility] [address] [place] [address]Dr. Arjun Menjivar Glucose [Mass/Vol] 163 mg/dL Normal [facility] Comment on above: Performed By: #### A 1C ####[facility] [address] [place], [place] [address]BbMago Menjivar HbA1c (Bld) [Mass fraction] 7.3 % Critically high 4.5-6.2 [facility] Comment on above: Performed By: #### A 1C ####[facility] [address] [place], [place] [address]Dy. Arjun Menjivar Dermatopathologyon Dermatopathology Name: TITO GONCALVES Pathologist: KRISTEN OCONNOR MD Date of Procedure: 09/07/2022 Date Received: 09/07/2022 Date Reported 09/08/2022 Submitting Physician: MACARIO BUI MD, Location: [facility] Copy To/Referring/Attending: MD SABRA SIMS FINAL DIAGNOSIS 3 SLIDES, [facility] #[id number] (BX: 08/03/2022) A. 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 B. SKIN, RIGHT CONFUCIANIST, SHAVE BIOPSY: MELANOMA IN SITU, PRESENT ON [...] M.D. CANCER SUMMARY REPORT A. 3 SLIDES, [facility] #[id number] (BX: 08/03/2022): SPECIMEN Procedure: Biopsy, shave Specimen Laterality: Right TUMOR Tumor Site: Skin of other and unspecified parts of face: Right mu-ism Histologic Type: Melanoma in situ, lentigo maligna [...] ADDITIONAL FINDINGS Additional Findings: None ADDITIONAL TESTING Emergency Medical Dispatcher Blocks: Normal Block: None Tumor Block: A1 Electronically Signed Out By KRISTEN OCONNOR MD/LEANDRO Diagnostic interpretation performed at [facility] [id number], [facility] [address] Microscopic Description: A. Microscopic examination reveals nests [...] OTHER Specimens Submitted As: A: 3 SLIDES, [facility] #[id number] (BX: 08/03/2022) Gross Description: Received for consultation from [facility] are three slides labeled [id number] (BX: 08/03/2022) along with the corresponding pathology report. Slide/Block Description 3 SLIDES, [id number]. Keep Slides: N Slides Returned: N Personal Consult: N Normal [facility] Comment on above: Performed By: #### D #### Dermatopathology GLYCOHEMOGLOBIN A1Con 2021 ADA RECOMMENDATION SEE BELOW Normal [facility] Comment on above: Result Comment: ADA RECOMMENDED LIMIT 4.0 - 6.0 ADA THERAPEUTIC TARGET < 7.0 ACTION SUGGESTED > 7.0 Performed By: #### A 1C ####[facility] [address] [place], [place] [address]ItMago Menjivar Glucose [Mass/Vol] 151 mg/dL Normal [facility] Comment on above: Performed By: #### A 1C ####[facility] [address] [place], [place] [address]MkMago Menjivar HbA1c (Bld) [Mass fraction] 6.9 % Critically high 4.5-6.2 [facility] [place] [facility] Comment on above: Performed By: #### A 1C ####[facility] [id number] [place], [place] [address]MxMago Menjivar XR ESOPHAGUSon 06-28-2022 XR ESOPHAGUS EXAMINATION: [...] by: CARMEN PABLO Date: 2022-06-28 14:07 Normal [facility] XR MODIFIED BARIUM SWALLOWon 06-15-2022 [...] by: SANTOS DC Date: 2022-06-15 11:11 Normal [facility] Ambulatory Visit Summaryon 0 05-03-2022 [...] multivitamin (Multi Vitamin+) omeprazole (omeprazole 20 mg Cap-) propafenone (propafenone 150 mg Tab) trazodone (traZODONE [...] [facility] [address], [place] [address]- [phone] Medications What How Much When Instructions Unchanged [...] (more content not included)... Normal [facility] Patient Educationon 08-08-20 22 Patient Education Urology Benign Prostatic Hyperplasia Benign [...] Follow these instructions at home: ? Take nrdt-gav-odudwrf and prescription medicines only as told by [...] d (more content not included)... Normal [facility] Urology Office/Clinic Noteon 05-03-2022 Urology Office/Clinic Note Chief Complaint 1 year with KUB HPI Staff Tito is here today for a 1 year follow up with a KUB. KUB done on 04/26/22 at [facility] impression showed no appreciable urinary tract [...] Mc Blackman, URL [facility] [address] [place] [phone] Additional Instructions: PRN Patient Education Benign Prostatic Hyperplasia IJerri, personally scribed for Dr. Almonte on 05/03/2022 09:24:40. . Documentation recorded by the Jerri ross, accurately reflects the services(s) I performed and [...] (more content not included)... Normal [facility] Comment on above: Result Comment: Elec tronically Signed By: Mc ALMONTE MD\.br\Date and Time Signed: 05/03/22 09:26 EDT\.br\Electronically Co-Signed By: Jerri Lyles\.br\Date and Time Co-Signed: 05/03/22 09:24 EDT RAD - MISCon 04-28-2022 RAD - MIS [id number] Normal [facility] XR KUB 1 VIEWon 04-27-2022 XR [...] by: SANTOS DC Date: 2022-04-27 06:18 Normal [facility] GLYCOHEMOGLOBIN A1Con 2021 ADA RECOMMENDATION SEE BELOW Normal [facility] Comment on above: Result Comment: ADA RECOMMENDED LIMIT 4.0 - 6.0 ADA THERAPEUTIC TARGET < 7.0 ACTION SUGGESTED > 7.0 Performed By: #### A 1C #### [facility] [address] [address] [address] Arjun Menjivar Glucose [Mass/Vol] 126 mg/dL Normal [facility] Comment on above: Performed By: #### A 1C #### [facility] [address] [address] [address] Arjun Menjivar HbA1c (Bld) [Mass fraction] 6.0 % Normal 4.5-6.2 [facility] Comment on above: Performed By: #### A 1C #### [facility] [address] [place] [address] Dr. Ajrun Menjivar IRON AND TIBCon 04-07-2022 % SATURATION 25.4 % Normal [facility] Comment on above: Performed By: #### F ETIBC, B12FOL #### [facility] [address] [address] [address] Arjun Menjivar Iron [Mass/Vol] 62.0 ug/dL Critically low 65.0-175.0 [facility] Comment on above: Performed By: #### F ETIBC, B12FOL #### [facility] [address] [address] [address] Arujn Menjivar TIBC DIRECT 244.0 ug/dL Critically low 250.0-450.0 [facility] Comment on above: Performed By: #### F ETIBC, B12FOL #### [facility] [address] [place] [address] Dr. Arjun Menjivar VIT B12 AND FOLATEon 022 Cobalamin (Vitamin B12) [Mass/Vol] 597.0 pg/mL Normal 193.0-986.0 [facility] Comment on above: Performed By: #### F ETIBC, B12FOL #### [facility] [address] [place] [address] Dr. Arjun Menjivar FOLATE 21.50 ng/mL Normal 8.60-58.90 [facility] Comment on above: Performed By: #### F ETIBC, B12FOL #### [facility] [address] [address] [address] Arjun Menjivar CBCon 03-16-2022 ABSOLUTE BAS 0.0 10*3/uL Normal 0.0-0.2 [facility] Comment on above: Result Comment: Test ing performed at [place] [address] Performed By: #### R ENF, ACBC, PT #### [place] [address] ABSOLUTE EOS 0.00 10*3/uL Normal 0.0-0.7 [facility] Comment on above: Performed By: #### R ENF, ACBC, PT #### [place] [address] ABSOLUTE NEUTROPHIL COUNT 8.5 10*3/uL High 1.4-6.5 [facility] Comment on above: Performed By: #### R ENF, ACBC, PT #### [place] [address] Basophils/100 WBC (Bld) 0.1 % Normal 0.0-2.0 [facility] Comment on above: Performed By: #### R ENF, ACBC, PT #### Testing [place] [address] DTYPE AUTO DIFF Normal [facility] Comment on above: Performed By: #### R ENF, ACBC, PT #### [place] [address] Eosinophils/100 WBC (Bld) 0.0 % Normal 0.0-11.0 [facility] Comment on above: Performed By: #### R ENF, ACBC, PT #### [place] [address] Lymphocytes (Bld) [#/Vol] 0.60 10*3/uL Low 1.2-3.4 [facility] Comment on above: Performed By: #### R HUGH MAGDALENO, PT #### Testing performed at [address] [address] Lymphocytes/100 WBC (Bld) 6.4 % Low 20.0-55.0 [facility] Comment on above: Performed By: #### R LUMA MAGDALENOBC, PT #### Testing performed at [place] [id number] Monocytes (Bld) [#/Vol] 0.4 10*3/uL Normal 0.0-0.7 [facility] Comment on above: Performed By: #### R HUGH MAGDALENO, PT #### Testing performed at [place] [id number] Monocytes/100 WBC (Bld) 4.1 % Normal 0.0-10.0 [facility] Comment on above: Performed By: #### LUMA FARIABC, PT #### Testing performed at [address] [address] Neutrophils/100 WBC (Bld) 89.4 % High 37.0-75.0 [facility] Comment on above: Performed By: #### HUGH FARIA, PT #### Testing performed at [address] [address] Erythrocyte distribution width (RBC) [Ratio] 17.0 % High 11.5-14.5 [facility] Comment on above: Performed By: #### R LUMA MAGDALENOBC, PT #### Testing performed at [address] [address] Hematocrit (Bld) [Volume fraction] 33.9 % Low 42.0-52.0 [facility] Comment on above: Performed By: #### R LUMA MAGDALENOBC, PT #### Testing performed at [address] [address] Hemoglobin (Bld) [Mass/Vol] 11.7 g/dL Low 14.0-18.0 [facility] Comment on above: Performed By: #### R ENEleni ACBC, PT #### Testing performed at [place] [id number] MCH (RBC) [Entitic mass] 30.0 pg Normal 26.0-35.0 [facility] Comment on above: Performed By: #### R ENF ACBC, PT #### Testing performed at [place] [id number] MCHC (RBC) [Mass/Vol] 34.5 g/dL Normal 27.0-37.0 [facility] Comment on above: Performed By: #### R ENF ACBC, PT #### Testing performed at [place] [id number] MCV (RBC) [Entitic vol] 87.2 fL Normal 80.0-100.0 [facility] Comment on above: Performed By: #### R ENEleni ACBC, PT #### [place] [address] Platelet mean volume (Bld) [Entitic vol] 9.2 fL Normal 7.4-11.0 [facility] Comment on above: Performed By: #### R RASTA ACBC, PT #### Testing performed at [place] [id number] Platelets (Bld) [#/Vol] 154 10*3/uL Normal 130.0-400.0 [facility] Comment on above: Performed By: #### R ENF ACBC, PT #### Testing performed at [place] [id number] RBC (Bld) [#/Vol] 3.89 10*6/uL Low 4.0-6.1 [facility] Comment on above: Performed By: #### R ENF ACBC, PT #### Testing performed at [place] [id number] WBC (Bld) [#/Vol] 9.5 10*3/uL Normal 3.6-11.0 [facility] Comment on above: Performed By: #### R ENF, ACBC, PT #### Testing performed at [address] [address] CBC, EDIF, PLATELETon 2021 ABSOLUTE BASOPHIL COUNT 0.0 10*3/uL 0.0 - 0.2 10*3/uL [facility] Comment on above: Testing performed at [place], [place] [address] Basophils/100 WBC (Bld) 0.1 % 0.0 - 2.0 % [facility] Differential cell count method Nom (Bld) AUTO DIFF % [facility] Eosinophils (Bld) [#/Vol] 0.00 10*3/uL 0.0 - 0.7 10*3/uL [facility] Eosinophils/100 WBC (Bld) 0.0 % 0.0 - 11.0 % [facility] Erythrocyte distribution width (RBC) [Ratio] 17.0 % High 11.5 - 14.5 % [facility] Hematocrit (Bld) [Volume fraction] 33.9 % Low 42.0 - 52.0 % [facility] Hemoglobin (Bld) [Mass/Vol] 11.7 g/dL Low [facility] Interpretation and review of laboratory results Abnormal [facility] Lymphocytes (Bld) [#/Vol] 0.60 10*3/uL Low 1.2 - 3.4 10*3/uL [facility] Lymphocytes/100 WBC (Bld) 6.4 % Low 20.0 - 55.0 % [facility] MCH (RBC) [Entitic mass] 30.0 pg 26.0 - 35.0 PG [facility] MCHC (RBC) [Mass/Vol] 34.5 g/dL [facility] MCV (RBC) [Entitic vol] 87.2 fL [facility] Monocytes (Bld) [#/Vol] 0.4 10*3/uL 0.0 - 0.7 10*3/uL [facility] Monocytes/100 WBC (Bld) 4.1 % 0.0 - 10.0 % [facility] Neutrophils (Bld) [#/Vol] 8.5 10*3/uL High 1.4 - 6.5 10*3/uL [facility] Neutrophils/100 WBC (Bld) 89.4 % High 37.0 - 75.0 % [facility] Platelet mean volume (Bld) [Entitic vol] 9.2 fL [facility] Platelets (Bld) [#/Vol] 154 10*3/uL 130.0 - 400.0 10*3/uL [facility] RBC (Bld) [#/Vol] 3.89 10*6/uL Low 4.0 - 6.1 10*6/uL [facility] WBC (Bld) [#/Vol] 9.5 10*3/uL 3.6 - 11.0 10*3/uL [facility] PROTIMEon 03-16-2022 INR Coag (PPP) [Relative time] 1.37 {INR} High 0.85-1.10 [facility] Comment on above: Result Comment: 2.0-3.0 THERAPEUTIC RANGE 2.5-3.5 MECHANICAL VALVE RANGE Testing performed at [place] [address] Performed By: #### R ENHUGH Knowles, PT #### [place] [address] PT Coag (PPP) [Time] 16.9 s High 11.8-14.4 [facility] Comment on above: Performed By: #### R ENFLUMABC, PT #### [place] [address] PROTIME-INRon 03-16-2022 INR Coag (PPP) [Relative time] 1.37 {INR} High [facility] Comment on above: 2.0-3.0 THERAPEUTIC RANGE 2.5-3.5 MECHANICAL VALVE RANGE Testing performed at [place] [address] Interpretation and review of laboratory results Abnormal [facility] PT Coag (PPP) [Time] 16.9 s High [facility] RENAL FUNCTION PANELon 03-16 Albumin [Mass/Vol] 3.3 G/dl Low 3.5 - 5.0 G/dl [facility] Calcium [Mass/Vol] 7.9 mg/dL Low [facility] Chloride [Moles/Vol] 106 mmol/L [facility] Comment on above: Please note: Triglyc eride levels of 600mg/dL or higher may positively bias chloride results by approximately 2.1 mmol CO2 [Moles/Vol] 23 mmol/L [facility] Creatinine [Mass/Vol] 1.20 mg/dL [facility] GFR COMMENT Average GFR for 70+ years old = 75. [facility] Comment on above: Chronic Kidney disea se, GFR = <60. Kidney failure, GFR = <15. The GFR estimate is not adjusted for extreme body surface area or acute process, nor has it been validated for women or ethnic groups other than and . Testing performed at [place], [place] [address] GFR/1.73 sq M.predicted among blacks MDRD (S/P/Bld) [Vol rate/Area] 76 mL/min/{1.73_m2} ml/min/1.73 sq.m [facility] GFR/1.73 sq M.predicted among non-blacks MDRD (S/P/Bld) [Vol rate/Area] 63 mL/min/{1.73_m2} ml/min/1.73 sq.m [facility] Glucose post fast [Mass/Vol] 230 mg/dL High [facility] Comment on above: NORMAL <100 mg/dL PREDIABETES 101-126 mg/dL DIABETES 126 mg/dL or higher Interpretation and review of laboratory results Abnormal [facility] Phosphate [Mass/Vol] 2.9 mg/dL [facility] Potassium [Moles/Vol] 4.5 mmol/L [facility] Sodium [Moles/Vol] 136 mmol/L Low [facility] Urea nitrogen [Mass/Vol] 22 mg/dL High [facility] RENAL PANEL,FASTINGon 2021 ALBUMIN 3.3 G/dl Low 3.5-5.0 [facility] Comment on above: Performed By: #### R HUGH MAGDALENO, PT #### Testing performed at [address] [address] Calcium [Mass/Vol] 7.9 mg/dL Low 8.4-10.2 [facility] Comment on above: Performed By: #### R HUGH MAGDALENO, PT #### [place] [address] Chloride [Moles/Vol] 106 mmol/L Normal 98-107 [facility] Comment on above: Result Comment: Alla noland note: Triglyceride levels of 600mg/dL or higher may positively bias chloride results by approximately 2.1 mmol Performed By: #### R ENF ACBC, PT #### [place] [address] CO2 [Moles/Vol] 23 mmol/L Normal 22-30 [facility] Comment on above: Performed By: #### R ENF ACBC, PT #### [place] [address] Creatinine [Mass/Vol] 1.20 mg/dL Normal 0.7-1.2 [facility] Comment on above: Performed By: #### R ENF, ACBC, PT #### [place] [address] EST. GFR, 76 ml/min/1.73sq.m [facility] Comment on above: Performed By: #### R ENF ACBC, PT #### [place] [address] EST. GFR,Non 63 ml/min/1.73sq.m [facility] Comment on above: Performed By: #### R ENF ACBC, PT #### [place] [address] GFR Information Average GFR for 70+ years old = 75. Normal [facility] Comment on above: Result Comment: Rn Observation david Kidney disease, GFR = <60. Kidney failure, GFR = <15. The GFR estimate is not adjusted for extreme body surface area or acute process, nor has it been validated for women or ethnic groups other than and . Testing performed at [place] [address] Performed By: #### R ENF, ACBC, PT #### [place] [address] Glucose [Mass/Vol] 230 mg/dL High 70-100 [facility] Comment on above: Result Comment: NORMAL <100 mg/dL PREDIABETES 101-126 mg/dL DIABETES 126 mg/dL or higher Performed By: #### R HUGH MAGDALENO, PT #### Testing performed at [place] [id number] PHOSPHOROUS 2.9 MG/DL Normal 2.5-4.5 [facility] Comment on above: Performed By: #### R HUGH MAGDALENO, PT #### Testing performed at [place] [id number] Potassium [Moles/Vol] 4.5 mmol/L Normal 3.5-5.1 [facility] Comment on above: Performed By: #### HUGH FARIA, PT #### Testing [place] [address] Sodium [Moles/Vol] 136 mmol/L Low 137-145 [facility] Comment on above: Performed By: #### HUGH FARIA, PT #### [place] [address] Urea nitrogen [Mass/Vol] 22 mg/dL High 7-20 [facility] Comment on above: Performed By: #### R HUGH MAGDALENO, PT #### [place] [address] GLUCOSE (POC DEVICE)on 03-15 GLUCOSE, POINT OF CARE 118 [facility] Interpretation and review of laboratory results Abnormal [facility] Operator [id number] [facility] Comment on above: Testing performed at [address] MRSA SCREENon 03-15-2022 MRSA DNA HERIBERTO+probe Ql (Unsp spec) Not detected Normal NOT DETECTED [facility] Comment on above: Performed By: #### M RSAST #### [place] [address] STAPH AUREUS SCREEN Not detected Normal NOT DETECTED [facility] Comment on above: Result Comment: Test ing performed at [place] [address] Performed By: #### M RSAST #### [place] [address] NOVEL CORONAVIRUSon 03-15-20 22 NARRATIVE This test was perfor med using isothermal HERIBERTO and has been approved as Emergency Use Authorization (EUA) for the qualitative detection [id number] nucleic acid. Normal [facility] Comment on above: Result Comment: Test ing performed at [place] [address] Performed By: #### C OVID #### [place] [address] SARS-CoV-2 (COVID-19) RNA HERIBERTO+probe Ql (Unsp spec) Not detected Normal NOT DETECTED [facility] Comment on above: Result Comment: Nega tive [...] #### C OVID #### [place] [address] NOVEL CORONAVIRUS LAB 1 - NA SOPHARYNGEALon 03-15-2022 NARRATIVE -1 This test was perfor med using isothermal HERIBERTO and has been approved as Emergency Use Authorization (EUA) for the qualitative detection [id number] nucleic acid. [facility] Comment on above: Testing performed at [place] [address] SARS-CoV-2 (COVID-19) RNA HERIBERTO+probe Ql (Unsp spec) Not detected NOT DETECTED [facility] Comment on above: Negative results do [...] patient is critically ill or clinically deteriorating. [facility] POCT GLUCOSEon 03-15-2022 Glucose [Mass/Vol] 118 mg/dL High 70-100 [facility] Comment on above: Performed By: #### P OCGLU #### [place] [address] DEFENSIVE SECONDARY COACH [id number] Normal [facility] Comment on above: Result Comment: Test ing performed at [place] [address] Performed By: #### P OCGLU #### [place] [address] PROTIMEon 03-15-2022 INR Coag (PPP) [Relative time] 1.36 {INR} High 0.85-1.10 [facility] Comment on above: Result Comment: 2.0-3.0 THERAPEUTIC RANGE 2.5-3.5 MECHANICAL VALVE RANGE Testing performed at [place] [address] Performed By: #### P T #### [place] [address] PT Coag (PPP) [Time] 16.8 s High 11.8-14.4 [facility] Comment on above: Performed By: #### P T #### Testing [place] [address] PROTIME-INRon 03-15-2022 INR Coag (PPP) [Relative time] 1.36 {INR} High [facility] Comment on above: 2.0-3.0 THERAPEUTIC RANGE 2.5-3.5 MECHANICAL VALVE RANGE Testing performed at [place] [address] Interpretation and review of laboratory results Abnormal [facility] PT Coag (PPP) [Time] 16.8 s High [facility] PTTon 03-15-2022 aPTT Coag (Bld) [Time] 28.7 s Normal 22.4-34.7 [facility] Comment on above: Result Comment: CARDIAC AND PE/DVT THERAPUTIC RANGE 69-97 SEC VASCULAR/THREATENED LIMB THERAPUTIC RANGE 80-112 SEC Testing performed at [place] [address] Performed By: #### P TT #### [place] [address] aPTT Coag (Bld) [Time] 28.7 s [facility] Comment on above: CARDIAC AND PE/DVT THERAPUTIC RANGE 69-97 SEC VASCULAR/THREATENED LIMB THERAPUTIC RANGE 80-112 SEC Testing performed at [address] SCREEN: MRSA ONLY, NARES (IS OLATION SCREEN)on 03-15-2022 MRSA isol Org specific cx Ql (Nose) Not detected NOT DETECTED [facility] STAPHYOCOCCUS AUREUS BY PCR Not detected NOT DETECTED [facility] Comment on above: Testing performed at [address] [facility] TYPE AND SCREEN CROSSMATCH C ONVERTIBLEon 03-15-2022 TYPE AND SCREEN CROSSMATCH CONVERTIBLE WORKUP EXPIRES 03/18/2022,2359 ABO/RH(D) A POSITIVE ANTIBODY SCREEN NEGATIVE ARM BAND NUMBER [id number] Testing performed at [place] [address] Normal [facility] Comment on above: Performed By: #### T SCC #### [place] [address] TYPE AND SCREEN - POSSIBLE T RANSFUSIONon 03-15-2022 ABO and Rh group Nom (Bld ) Positive farmhopping ARM BAND NUMBER [id number] ARM BAND NUMBER Testing performed at [address] Blood group antibody screen Ql Negative farmhopping EXPIRATION DATE 03/18/2022,2359 [facility] RIGHT 2 VIEWSon 02-25 XR KNEE RIGHT 2 VIEWS EXAM: XR KNEE RIGHT 2 VIEWS HISTORY: COMPARISON: FINDINGS: Joint replacement is seen with overall preservation of normal alignment. No abnormal lucency is seen around the hardware. IMPRESSION: Joint replacement without hardware complication Normal [facility] XR Knee - right 2 Viewson IMPRESSION: [...] IMPRESSION IMPRESSION: Joint replacement without hardware complication [facility] Radiology Study observation (narrative) [facility] XR Knee - right 2 ViewsOrder ed By: Abel Resendiz on 03-15-2022 [facility] Work Phone: Operative Reporton 9 Operative Report MR#: [id number] [facility] Pt. Name: Tito Goncalves Room #: [...] form. The patient was brought to the lab technologist and a transesophageal echocardiogram was performed under [...] for the entire procedure. Date Dict: 06/13/2019/12:48 Becki/Patric Flores MD Date Trans: 06/14/2019 12:23 Damon/asad [id number] cc: Augustine Metz D.O. [address] [facility] [id number] Ryan Cardenas M.D. [facility] [address] Normal [facility] Repor ton 06-21-2017 Health Services Clinic Report Type: OrthopedicDictated by: To be signed by: Transcribed by: Transcribed D/ Dictation D/ Report: DATE OF VISIT: 06/08/2017 Re: Tito Ivanna HISTORY OF PRESENT ILLNESS: Patient is here today for followup. He is an established patient of [facility]. He is status post revision arthroplasty for [...] questions or concerns in the meantime. Normal [facility] Vital Signs Date Time Vital Sign Value Performing Clinician Facility 04-04-2024 11:19-0400 Body height 172.72 cm DO Augustine Ball Work Phone: [facility] 04-04-2024 11:19-0400 Body mass index (BMI) [Ratio] 36.6 kg/m2 DO Augustine Ball Work Phone: [facility] 04-04-2024 11:19-0400 Body weight 109.37 kg DO Augustine Ball Work Phone: [facility] 04-04-2024 11:19-0400 Diastolic blood pressure 77 mm[Hg] DO Augustine Ball Work Phone: [facility] 04-04-2024 11:19-0400 Heart rate 55 /min DO Augustine Ball Work Phone: [facility] 04-04-2024 11:19-0400 Respiratory rate 12 /min DO Augustine Ball Work Phone: [facility] 04-04-2024 11:19-0400 Systolic blood pressure 151 mm[Hg] DO Augustine Ball Work Phone: [facility] 02-27-2024 09:21-0400 Body height 172.72 cm DO Augustine Ball Work Phone: [facility] 02-27-2024 09:21-0400 Body mass index (BMI) [Ratio] 36.7 kg/m2 DO Augustine Ball Work Phone: [facility] 02-27-2024 09:21-0400 Body weight 109.48 kg DO Augustine Ball Work Phone: [facility] 02-27-2024 09:21-0400 Diastolic blood pressure 72 mm[Hg] DO Augustine Ball Work Phone: [facility] 02-27-2024 09:21-0400 Heart rate 60 /min DO Augustine Ball Work Phone: [facility] 02-27-2024 09:21-0400 Respiratory rate 12 /min DO Augustine Ball Work Phone: [facility] 02-27-2024 09:21-0400 Systolic blood pressure 152 mm[Hg] DO Augustine Ball Work Phone: [facility] 02-24-2024 17:02-0400 Diastolic blood pressure 70 mm[Hg] DO Augustine Ball Work Phone: [facility] 02-24-2024 17:02-0400 Heart rate 55 /min DO Augustine Ball Work Phone: [facility] 02-24-2024 17:02-0400 Respiratory rate 16 /min DO Augustine Ball Work Phone: [facility] 02-24-2024 17:02-0400 SaO2% (BldA) [Mass fraction] 97 % DO Augustine Ball Work Phone: [facility] 02-24-2024 17:02-0400 Systolic blood pressure 132 mm[Hg] DO Augustine Ball Work Phone: [facility] 02-24-2024 16:20-0400 Body temperature 98 [degF] DO Augustine Ball Work Phone: [facility] 02-24-2024 15:55-0400 Inhaled oxygen flow rate 8 L/min DO Augustine Ball Work Phone: [facility] 02-24-2024 15:38-0400 Body height 182.88 cm DO Augustine Ball Work Phone: [facility] 02-24-2024 15:38-0400 Body mass index (BMI) [Ratio] 32.5 kg/m2 DO Augustine Ball Work Phone: [facility] 02-24-2024 15:38-0400 Body weight 109 kg DO Augustine Ball Work Phone: [facility] 01-31-2024 15:34-0400 Body height 181.61 cm [facility] 01-31-2024 15:34-0400 Body mass index (BMI) [Ratio] 34.5 kg/m2 [facility] 01-31-2024 15:34-0400 Body weight 114.07 kg [facility] 01-31-2024 15:34-0400 Diastolic blood pressure 79 mm[Hg] [facility] 01-31-2024 15:34-0400 Heart rate 53 /min [facility] 01-31-2024 15:34-0400 Respiratory rate 12 /min [facility] 01-31-2024 15:34-0400 Systolic blood pressure 130 mm[Hg] [facility] 10-31-2023 10:30-0500 Body height Augustine Ball Other [facility] [employer] Other 10-31-2023 10:30-0500 Body mass index (BMI) [Ratio] 33.47 kg/m2 Augustine Ball Other [employer] Other 10-31-2023 10:30-0500 Body weight 110.41 kg Augustine Ball Other [employer] Other 10-31-2023 10:30-0500 Diastolic blood pressure 68 mm[Hg] Augustine Ball Other [facility] [employer] Other 10-31-2023 10:30-0500 Respiratory rate 12 /min Augustine Ball Other [employer] Other 10-31-2023 10:30-0500 Systolic blood pressure 122 mm[Hg] Augustine Ball Other [employer] Other 03-16-2023 11:19-0400 Body height 182.9 cm Azul Virginie VEHICLE WASHER-ACCOUNT DEVELOPMENT EXECUTIVE Work Phone: [employer] [facility] 03-16-2023 11:19-0400 Body mass index (BMI) [Ratio] 33.23 kg/m2 Azul Virginie VEHICLE WASHER-ACCOUNT DEVELOPMENT EXECUTIVE Work Phone: [employer] [facility] 03-16-2023 11:19-0400 Body temperature 97.2 [degF] Azul Virginie VEHICLE WASHER-ACCOUNT DEVELOPMENT EXECUTIVE Work Phone: [id number] [facility] 03-16-2023 11:19-0400 Body weight 111.13 kg Azul Rachel APRN-ACCOUNT DEVELOPMENT EXECUTIVE Work Phone: [employer] 01-05-2023 12:00-0400 Body height Augustine Ball Other [employer] Other 01-05-2023 12:00-0400 Body mass index (BMI) [Ratio] 33.36 kg/m2 Augustine Ball Other [employer] Other 01-05-2023 12:00-0400 Body weight 110.04 kg Augustine Ball Other [employer] Other 01-05-2023 12:00-0400 Diastolic blood pressure 70 mm[Hg] Augustine Ball Other [employer] Other 01-05-2023 12:00-0400 Respiratory rate 12 /min Augustine Ball Other [employer] Other 01-05-2023 12:00-0400 Systolic blood pressure 118 mm[Hg] Augustine Ball Other [employer] Other 10-04-2022 12:00-0500 Body height Augustine Ball Other [employer] Other 10-04-2022 12:00-0500 Body mass index (BMI) [Ratio] 33.44 kg/m2 Augustine Ball Other [employer] Other 10-04-2022 12:00-0500 Body weight 110.32 kg Augustine Ball Other [employer] Other 10-04-2022 12:00-0500 Diastolic blood pressure 78 mm[Hg] Augustine Ball Other [employer] Other 10-04-2022 12:00-0500 Respiratory rate 12 /min Augustine Ball Other [facility] [employer] Other 10-04-2022 12:00-0500 Systolic blood pressure 128 mm[Hg] Augustine Ball Other [facility] [employer] Other 10-01-2022 08:30-0500 Diastolic blood pressure 77 mm[Hg] Damari Rojas Dept. of Dermatology 10-01-2022 08:30-0500 Systolic blood pressure 132 mm[Hg] Dam[facility] Rojas [facility] 07-08-2022 11:47-0400 Body height 182.9 cm Pastor Bedoya MD Work Phone: [employer] [facility] 07-08-2022 11:47-0400 Body mass index (BMI) [Ratio] 33.23 kg/m2 Pastor Bedoya MD Work Phone: [employer] 07-08-2022 11:47-0400 Body weight 111.13 kg Pastor Bedoya MD Work Phone: [employer] [facility] 05-03-2022 08:48-0400 Blood Pressure Location Mc ALMONTE [facility] 05-03-2022 08:48-0400 Diastolic blood pressure 67 mm[Hg] [facility] 05-03-2022 08:48-0400 Heart rate 70 /min Mc ALMONTE [facility] 05-03-2022 08:48-0400 Respiratory rate 16 /min Mc ALMONTE [facility] 05-03-2022 08:48-0400 Systolic blood pressure 120 mm[Hg] Mc [facility] 04-08-2022 09:49-0400 Body height 182.9 cm Azul Rachel VEHICLE WASHER-ACCOUNT DEVELOPMENT EXECUTIVE Work Phone: [employer] [facility] 04-08-2022 09:49-0400 Body mass index (BMI) [Ratio] 33.23 kg/m2 Azul Rachel VEHICLE WASHER-ACCOUNT DEVELOPMENT EXECUTIVE Work Phone: [employer] 04-08-2022 09:49-0400 Body temperature 96.91 [degF] Azul Rachel VEHICLE WASHER-ACCOUNT DEVELOPMENT EXECUTIVE Work Phone: [employer] [facility] 04-08-2022 09:49-0400 Body weight 111.13 kg Azul Rachel VEHICLE WASHER-ACCOUNT DEVELOPMENT EXECUTIVE Work Phone: [employer] [facility] 03-16-2022 11:00-0400 Body temperature 97.7 [degF] Pastor Bedoya MD Work Phone: [employer] 03-16-2022 11:00-0400 Diastolic blood pressure 70 mm[Hg] Pastor Bedoya MD Work Phone: [employer] [facility] 03-16-2022 11:00-0400 Heart rate 77 /min Pastor Bedoya MD Work Phone: [employer] 03-16-2022 11:00-0400 Respiratory rate 14 /min Pastor Bedoya MD Work Phone: [employer] 03-16-2022 11:00-0400 SaO2% (BldA) [Mass fraction] 96 % Pastor Bedoya MD Work Phone: [employer] 03-16-2022 11:00-0400 Systolic blood pressure 142 mm[Hg] Pastor Bedoya MD Work Phone: [employer] 03-15-2022 09:00-0400 Body height 182.9 cm Pastor Bedoya MD Work Phone: [employer] 03-15-2022 09:00-0400 Body mass index (BMI) [Ratio] 31.73 kg/m2 Pastor Bedoya MD Work Phone: [employer] 03-15-2022 09:00-0400 Body weight 106.14 kg Pastor Bedoya MD Work Phone: [employer] 2022 12:57-0400 Body height 182.9 cm Pastor Bedoya MD Work Phone: [employer] [facility] 2022 12:57-0400 Body mass index (BMI) [Ratio] 33.23 kg/m2 Pastor Bedoya MD Work Phone: [employer] 2022 12:57-0400 Body temperature 97.2 [degF] Pastor Bedoya MD Work Phone: [employer] 2022 12:57-0400 Body weight 111.13 kg Pastor Bedoya MD Work Phone: [employer] 11-04-2021 14:30-0500 Body height Carmen Lazarooli Other [employer] Other 03-20-2020 11:06-0400 BMI (Body Mass Index) 33.63 kg/m2 [facility] [employer] 03-20-2020 11:06-0400 Body Temperature 97.5 [degF] [facility] [employer] 03-20-2020 11:06-0400 Body weight 112.[address] [facility] 03-20-2020 11:06-0400 Height 182.9 cm [facility] [employer] 1945 00:00-0500 >na< Damari Rojas Dept. of Dermato logy Encounters Encounter Date Encounter Type Care Provider Facility Start: 04-04-2024 End: 04-04-2024 ambulatory AUGUSTINE FREITAS Not Available Start: 04-04-2024 End: 04-04-2024 ambulatory DO Augustine Metz Work Phone: [facility] Work Phone: Start: 04-04-2024 End: 04-04-2024 Patient encounter procedure DO Augustine Ball Work Phone: [facility] Work Phone: Start: 04-02-2024 Non-patient / Non-visit DO Alo lew Ball Work Phone: [facility] Work Phone: Start: 04-01-2024 Non-patient / Non-visit DO Alo lew Ball Work Phone: [facility] Work Phone: Start: 03-22-2024 End: 03-22-2024 ambulatory [facility] Start: 03-16-2024 End: 03-16-2024 ambulatory [facility] Start: 03-09-2024 End: 03-09-2024 ambulatory JOSE R DODD Not Available Start: 03-06-2024 End: 03-06-2024 ambulatory AUGUSTINE W OMERCATHLEENK Not Available Start: 02-27-2024 End: 02-27-2024 ambulatory AUGUSTINE W MURCEK Not Available Start: 02-27-2024 End: 02-27-2024 ambulatory DO Augustine Ball Work Phone: [facility] Work Phone: Start: 02-27-2024 End: 02-27-2024 Patient encounter procedure DO Augustine Ball Work Phone: [facility] Work Phone: Start: 02-24-2024 End: 02-24-2024 Admission to same day surgery center DO Augustine Ball Work Phone: [facility] [place] Start: 02-24-2024 End: 02-24-2024 ambulatory DO Augustine Ball Work Phone: [facility] Work Phone: Start: 02-16-2024 End: 02-16-2024 Patient encounter procedure DO Augustine Metz Work Phone: [facility] [employer] Work Phone: Start: 02-16-2024 End: 02-16-2024 ambulatory DO Augustine Metz Work Phone: [facility] Work Phone: Start: 02-16-2024 Encounter for preprocedural cardiovascular examination Augustine Freitas [facility] Start: 02-15-2024 End: 02-15-2024 ambulatory AUGUSTINE FREITAS Not Available Start: 02-15-2024 End: 02-15-2024 ambulatory CHRISTIN BOLTON Not Available Start: 02-09-2024 End: 02-09-2024 ambulatory [facility] Start: 01-31-2024 End: 01-31-2024 ambulatory [facility] Work Phone: Start: 01-31-2024 End: 01-31-2024 Patient encounter procedure [facility] Work Phone: Start: 01-31-2024 Non-patient / Non-visit [facility] Work Phone: Start: 01-29-2024 Evaluation and management of inpatient BRIGITTE PERRY [facility] Start: 01-27-2024 Evaluation and management of inpatient [facility] Start: 01-26-2024 Evaluation and management of inpatient [facility] Start: 01-26-2024 Evaluation and management of inpatient [facility] Start: 01-25-2024 Evaluation and management of inpatient [facility] Start: 01-25-2024 Evaluation and management of inpatient [facility] Start: 01-25-2024 [facility] Start: 01-25-2024 Evaluation and management of inpatient [facility] Start: 01-25-2024 Evaluation and management of inpatient [facility] Start: 01-24-2024 End: 01-29-2024 Evaluation and management of inpatient [facility] Start: 01-18-2024 Non-patient / Non-visit [facility] Phys[facility] Work Phone: Start: 01-10-2024 End: 01-10-2024 ambulatory OSMAN SHAH Not Available Start: 12-30-2023 End: 12-30-2023 ambulatory JOSE R DODD Not Available Start: 12-16-2023 Non-patient / Non-visit [facility] Work Phone: Start: 11-01-2023 End: 11-01-2023 ambulatory Augustine Metz Other [employer] Other Start: 11-01-2023 Telephone encounter Augustine Metz [facility] Start: 10-31-2023 End: 10-31-2023 ambulatory Augustine Metz Other [employer] Other Start: 10-31-2023 Office outpatient vi sit 25 minutes Augustine Metz [facility] Start: 10-28-2023 Bamboo flowsheet Jose R Green hler DO Work Phone: [facility] Start: 10-28-2023 Bamboo flowsheet Jose R Hogan Za hler DO Work Phone: [facility] Start: 10-28-2023 End: 10-28-2023 ambulatory JOSE R DODD Not Available Start: 10-24-2023 End: 10-24-2023 ambulatory AB [facility] Start: 09-16-2023 End: 01-24-2024 ambulatory [facility] Start: 09-06-2023 End: 09-06-2023 ambulatory [facility] Start: 08-29-2023 End: 08-29-2023 ambulatory JOSE R DODD Not Available Start: 08-27-2023 End: 08-29-2023 ambulatory JOSE R DODD Not Available Start: 08-26-2023 End: 08-26-2023 ambulatory JOSE R DODD Not Available Start: 07-11-2023 End: 07-11-2023 ambulatory Augustine Metz Other [employer] Other Start: 07-11-2023 Telephone encounter [facility] Start: 07-10-2023 End: 07-10-2023 ambulatory Augustine Metz Other [employer] Other Start: 07-10-2023 Telephone encounter [facility] Start: 07-05-2023 End: 07-05-2023 Emergency department patient visit Augustine Metz Facility:[facility] Start: 03-16-2023 ambulatory AZUL RACHEL [facility] Start: 03-16-2023 End: 03-16-2023 Office outpatient visit 15 minutes Azul ALN Work Phone: [facility] Comment on above: Hx of total knee art hroplasty, right (Primary Dx) Start: 03-16-2023 End: 03-16-2023 Subsequent hospital visit by physician Azul LAN Work Phone: [facility] Start: 02-01-2023 ambulatory AUGUSTINE METZ Facilit y:[facility] Start: 01-24-2023 End: 02-23-2023 ambulatory SHAIKH Tiburcio PRICE Facility:[facility]1 Start: 01-22-2023 End: 01-22-2023 ambulatory Augustine Metz Other [employer] Other Start: 01-22-2023 Telephone encounter Augustine [facility]z [facility] Start: 2023 End: 01-22-[address] AUGUSTINE METZ Facility:[facility] Start: 01-05-2023 End: 01-05-2023 ambulatory Augustine Metz Other [employer] Other Start: 01-05-2023 Office outpatient vi sit 25 minutes Augustine Metz [facility] Start: 12-27-2022 End: 2023 ambulatory SHAIKH Tiburcio PASTRANASOLEDAD Facility:[facility]1 Start: 11-24-2022 End: 12-24-2022 ambulatory Tiburcio DEE Facility:[facility] Start: 11-10-2022 End: 11-10-2022 ambulatory Augustine Metz Other [employer] Other Start: 11-10-2022 Telephone encounter Augustine PHILIPPE G [facility] Start: 11-09-2022 Telephone encounter Augustine PHILIPPE G [facility] Start: 11-09-2022 End: 11-10-[address] [facility] Other Start: 11-08-2022 ambulatory AUGUSTINE METZ Facilit y:[facility] Start: 11-01-2022 End: 11-02-[address] DOCTOR ABERNATHY Facility:[facility]1 Start: 10-28-2022 ambulatory AUGUSTINE METZ Facilit y:[facility] Start: 10-27-2022 End: 11-24-2022 ambulatory SHAIKH Tiburcio CAMPOSFIOR Facility:[facility] Start: 10-26-2022 End: 10-27-2022 ambulatory PUJA HOLBROOK MD Facility:[facility] Start: 10-19-2022 End: 10-20-[address] AUGUSTINE METZ Facility:[facility] Start: 10-04-2022 Damari Rojas Dept. of D ermatology Start: 10-04-2022 End: 10-04-2022 ambulatory Augustine Metz Other [employer] Other Start: 10-04-2022 Office outpatient vi sit 25 minutes Augustine Metz [facility] Start: 10-01-2022 ambulatory Ms. Osman Brady letty Shah Facility:[id number] Start: 09-27-2022 End: 10-27-2022 ambulatory SHAIKH Tiburcio PRICE Facility:[facility]1 Start: 09-14-2022 Damari Rojas Dept. of D ermatology Start: 09-09-2022 Pre-procedure evaluation check Augustine Metz Other [facility] [employer] Other Start: 09-07-[address] Macario Bui Facility:[id number] Start: 08-26-2022 End: 09-26-2022 ambulatory SHAIKH Tiburcio PRICE Facility:[facility]1 Start: 07-27-2022 End: 08-25-2022 ambulatory SHAIKH Tiburcio PRICE Facility:[facility]1 Start: 07-13-2022 End: 07-14-[address] AUGUSTINE METZ Facility:[facility]1 Start: 07-08-2022 ambulatory PASTOR BEDOYA [facility] Start: 07-08-2022 End: 07-08-2022 Office outpatient visit 15 minutes Pastor Bedoya MD Work Phone: [facility] Comment on above: Hx of total knee art hroplasty, right (Primary Dx) Start: 07-08-2022 End: 07-08-2022 Subsequent hospital visit by physician Pastor Bedoya MD Work Phone: [facility] Start: 06-28-2022 End: 06-29-[address] AUGUSTINE METZ Facility:[facility]1 Start: 06-28-2022 End: 07-26-2022 ambulatory SHAIKH Tiburcio PRICE Facility:[facility]1 Start: 06-15-2022 End: 06-16-[address] AUGUSTINE METZ Facility:[facility]1 Start: 05-27-2022 End: 06-26-2022 ambulatory SHAIKH Tiburcio PRICE Facility:[facility]1 Start: 05-03-2022 End: 05-03-2022 Patient encounter procedure Mc ALMONTE [facility] Start: 04-26-2022 End: 04-27-[address] AUGUSTINE METZ Facility:[facility]1 Start: 04-26-2022 End: 05-26-2022 ambulatory SHAIKH Tiburcio PRICE Facility:[facility]1 Start: 04-19-2022 End: 05-08-[address] AUGUSTINE METZ Facility:[facility]1 Start: 04-08-2022 ambulatory AZUL VIRGINIE [facility] Start: 04-08-2022 End: 04-08-2022 Postop follow up visit related to original px Azul Andrewsjames LAN Work Phone: [facility] Comment on above: Hx of total knee art hroplasty, right (Primary Dx) Start: 04-08-2022 End: 04-08-2022 Subsequent hospital visit by physician Azul LAN Work Phone: [facility] Start: 04-07-2022 End: 04-08-[address] AUGUSTINE MEZT Facility:[facility]1 Start: 03-26-2022 End: 04-23-2022 ambulatory SHAIKH Tiburcio PRICE Facility:[facility]1 Start: 03-15-2022 End: 03-16-2022 Patient encounter status Pastor Bedoya MD Work Phone: [facility] Start: 03-15-2022 End: 03-16-2022 Subsequent hospital visit by physician Pastor Bedoya MD Work Phone: [facility] Comment on above: S/P total knee arthr oplasty, right Start: 2022 End: 2022 Office outpatient new 60 minutes Pastor Bedoya MD Work Phone: [facility] Comment on above: Right knee pain, uns pecified chronicity (Primary Dx); Pain in prosthetic joint, sequela Start: 2022 End: 2022 Subsequent hospital visit by physician Pastor Bedoya MD Work Phone: [facility] Start: 11-04-2021 End: 11-04-2021 ambulatory Carmen Kahn Other [employer] Other Start: 11-04-2021 Office outpatient vi sit 25 minutes Carmen Kahn [facility] G[facility] Start: 11-03-2021 End: 11-03-2021 ambulatory Carmen Kahn Other [employer] Other Start: 11-03-2021 Telephone encounter Carmen Kahn [facility] G[facility] Start: 03-20-2020 End: 03-20-2020 Office outpatient visit 15 minutes Pastor Daryl Work Phone: [facility] Comment on above: 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) Start: 03-20-2020 End: 03-20-2020 Subsequent hospital visit by physician Azul LAN Work Phone: [facility] Start: 06-13-2019 End: 06-14-2019 Patient encounter procedure GENE JONES Facility:[facility] Procedures Date Procedure Procedure Detail Performing [...] Phone: Start: 03-15-2022 Prothrombin time Azul Rachel VEHICLE WASHER-ACCOUNT DEVELOPMENT EXECUTIVE Work Phone: Start: 03-15-2022 Cultyp nuc acid amp prb cult/isolate ea orgkristam Azul Rachel VEHICLE WASHER-ACCOUNT DEVELOPMENT EXECUTIVE Work Phone: Start: 03-15-2022 Sars-cov-2 detection by dna/rna Azul ramirez VEHICLE WASHER-ACCOUNT DEVELOPMENT EXECUTIVE Work Phone: Start: 03-15-2022 Antibody screen rbc each serum technique Pastor Bedoya MD Work Phone: Start: 03-15-2022 End: 03-15-2022 Thromboplastin time partial plasma/whole blood Azul Rachel VEHICLE WASHER-ACCOUNT DEVELOPMENT EXECUTIVE Work Phone: Start: 01-10-2020 Renal lithotripsy Mc ALMONTE Start: 10-23-2019 Cystoscopic removal of ureteric stent Mc ALMONTE Start: 09-26-2019 Endoscopic retrograde cholangiopancreatography Mc ALMONTE Cholecystectomy [facility] Colonoscopy Mc ALMONTE Depression screening Ramirez Metz Other Total knee replacement Ro ALMONTE Plan of Treatment Date Care Activity Detail Author Start: 02-24-2024 End: 02-24-2024 [facility] Start: 01-10-2024 End: 01-10-2024 Patient encounter procedure 01/10/2024 9:35 AM EDT Office Visit [facility] [address] [place] [id number] Osman Shah VEHICLE WASHER-ACCOUNT DEVELOPMENT EXECUTIVE [address] [place] [address] [facility] Start: 10-28-2023 End: 10-28-2023 Patient encounter procedure 10/28/2023 9:30 AM EST Procedure Visit [facility] [address] [place] [id number] Jose R Dodd DO [address] [place] [address] Arrived [facility] Comment on above: Arrived Start: 05-27-2023 Influenza vaccination Influenza Vacc ine (#1) [facility] Start: 03-16-2023 End: 03-16-2023 Patient encounter procedure 03/16/2023 Office Visit Orthopaedics Azul Rachel APRN-ACCOUNT DEVELOPMENT EXECUTIVE [address] [place] [address] [facility] Start: 10-22-2022 COVID-19 VACCINE (6 - Pfizer series) COVID-19 VACCINE (6 - Pfizer series) [facility] Start: 08-21-2022 Hemoglobin A1c measurement HBA1C TEST [facility] Start: 07-08-2022 End: 07-08-2022 Patient encounter procedure 07/08/2022 Office Visit Orthopaedics Pastor Bedoya MD [address] [place] [address] [facility] Start: 05-27-2022 Influenza vaccination A [facility] Start: 04-08-2022 End: 04-08-2022 Patient encounter procedure 04/08/2022 Office Visit OrthopaedicAzul Sparks, VEHICLE WASHER-ACCOUNT DEVELOPMENT EXECUTIVE [address] [place] [address] [facility] Start: 02-18-2022 End: 02-18-2022 ambulatory 02/18/2022 Pre-Operative Nurse Assessment Internal Medicine [facility] Start: 05-27-2020 Influenza vaccination INFLUENZ A VACCINE (Season Ended) [facility] Start: 12-25-2014 Pneumococcal vaccination PNEUMOCOCCAL VACCINE SERIES (2 - PCV) [facility] Start: 12-25-2014 Pneumococcal Vaccine : 65+ Years (2 - PCV) Pneumococcal Vaccine: 65+ Years (2 - PCV) [facility] Start: 2011 Abdominal aortic aneurysm screening ABDOMINAL AORTIC ANEURYSM HIGH RISK SCREEN [facility] Start: 2011 Pneumococcal vaccination [facility] Start: 01-22-1996 Colonoscopy COLORECTAL CAN CER SCREENING DISCUSSION [facility] Start: 01-22-1996 Prostate specific antigen measurement PROSTATE CANCER SCREENING DISCUSSION [facility] Start: 01-22-1996 Zoster vaccine hzv live for subcutaneous use ZOSTER (SHINGLES) VACCINE (1 of 2) [facility] Start: 1991 Colonoscopy COLORECTAL CAN CER SCREENING DISCUSSION [facility] Start: 1991 Screening for malignant neoplasm of colon COLORECTAL CANCER SCREENING DISCUSSION [facility] Start: 1986 Fasting lipid profile LIPID SCREENIN G [facility] Start: 1965 Third diphtheria, tetanus and acellular pertussis (DTaP) vaccination TDAP (ADULT) [facility] Start: 01-22-1964 Tetanus vaccination TETANUS [facility] Start: 1951 COVID-19 VACCINE (#1) COVID-19 VACCI NE (#1) [facility] Start: 1946 COVID-19 VACCINE (#1) COVID-19 VACCI NE (#1) [facility] Start: 1946 Diabetic foot examination DIABETIC FOOT EXAM [facility] Start: 1946 Diabetic retinal eye exam EYE EXAM [facility] Start: 1946 Glaucoma screening EYE EXAM [facility] Start: 1946 Hepatitis B vaccination HEP B VACCINE (1 of 3 - 3-dose series) [facility] Start: 1946 Hepatitis C antibody , confirmatory test HEPATITIS C VIRUS SCREENING [facility] Start: 1946 Hepatitis C screening HEPATITI S C VIRUS SCREENING [facility] Start: 1946 Lipid panel LIPIDS [facility] Start: 1946 LIPIDS LIPIDS [facility] Start: 1946 Microalbumin measurement, urine, quantitative URINE MICROALBUMIN TEST [facility] Start: 1946 Potassium [Moles/Vol] POTASSIUM A [facility] Start: 1946 Tetanus vaccination TETANUS [employer] Start: 1946 Urine screening for protein URINE MICROALBUMIN TEST [employer] Patient Education Know your Meds [facility] Work Phone: Patient referral [facility] Work Phone: Radiography for bone length studies XR BONE LENGTH STUDY Imaging Routine Hx of total knee arthroplasty, right 07/08/2022 11:01 AM EDT [employer] Work Phone: SURGICAL PATHOLOGY REQUEST SURGICAL PATHOLOGY REQUEST Surg Path Routine Osteoarthritis of right knee, unspecified osteoarthritis type Release Upon Ordering for 1 Occurrences starting 03/15/2022 [employer] Work Phone: Comment on above: Release Upon Orderin g for 1 Occurrences starting 03/15/2022 X-ray of left knee XR KNEE LEFT 3 VIEWS Imaging Routine History of revision of total replacement of left knee joint 03/20/2020 10:48 AM EDT [employer] XR Knee - left 3 Views XR KNEE L EFT 3 VIEWS Imaging Routine Pain in prosthetic joint, sequela 2022 1:09 PM EDT Planex System XR Knee - right 3 Views XR KNEE RIGHT 3 VIEWS Imaging Routine Hx of total knee arthroplasty, right 04/08/2022 10:04 AM EDT Planex System XR Knee - right 3 Views XR KNEE RIGHT 3 VIEWS Imaging Routine Hx of total knee arthroplasty, right 07/08/2022 11:01 AM EDT Planex System XR Knee - right 3 Views XR KNEE RIGHT 3 VIEWS Imaging Routine Hx of total knee arthroplasty, right 03/16/2023 11:03 AM EDT [employer] XR Knee - right 4 Views XR KNEE RIGHT 4+ VIEWS Imaging Routine Right knee pain, unspecified chronicity 2022 12:51 PM EDT [employer] Immunizations Immunization Date Immunization Notes Care Provider Dunia burrell 12-27-2023 COVID-19 (PFIZER) 12Y and older DO Augustine Metz Work Phone: [facility] 07-08-2023 influenza virus vaccine, unspecified formulation [facility] 07-08-2023 influenza, high dose seasonal, preservative-free Augustine Metz Other [facility] [employer] Other 06-21-2023 COVID-19 (PFIZER) 12Y and older DO Augustine Metz Work Phone: [facility] 03-03-2023 zoster vaccine recombinant Augustine Metz Other [facility] 01-01-2023 zoster vaccine recombinant Augustine Metz Other [facility] 06-29-2022 influenza, high dose seasonal, preservative-free Augustine Metz Other [facility] [employer] Other 06-29-2022 influenza virus vaccine, split virus (incl. purified surface antigen) Augustine Metz Other [facility] [employer] Other 06-29-2022 influenza virus vaccine, unspecified formulation Jose R Dodd DO Work Phone: [facility] 06-22-2022 COVID-19 Pfizer (bivalent) Augustine Metz Other [facility] 04-17-2022 COVID-19 Comirnaty (Pfizer) Tri-Sucrose 12+ DO Augustine Metz Work Phone: [facility] 07-15-2021 influenza virus vaccine, split virus (incl. purified surface antigen) Augustine Metz Other [facility] [employer] Other 07-15-2021 influenza virus vaccine, unspecified formulation [facility] 06-22-2021 COVID-19 Vaccine Pfi zer - Documentation Purposes Only Augustine Metz Other [facility] 11-20-2020 COVID-19 Vaccine Pfi zer - Documentation Purposes Only Augustine Metz Other [facility] 10-30-2020 COVID-19 Vaccine Pfi zer - Documentation Purposes Only Augustine Metz Other [facility] 07-01-2020 influenza virus vaccine, split virus (incl. purified surface antigen) Augustine Isaías Other [facility] [employer] Other 07-01-2020 influenza virus vaccine, unspecified formulation [facility] 07-06-2019 influenza virus vaccine, split virus (incl. purified surface antigen) Augustine Isaías Other [facility] [employer] Other 07-06-2019 influenza virus vaccine, unspecified formulation [facility] 07-12-2018 influenza virus vaccine, split virus (incl. purified surface antigen) Augustine Metz Other [facility] [employer] Other 07-12-2018 influenza virus vaccine, unspecified formulation [facility] 07-25-2017 influenza virus vaccine, split virus (incl. purified surface antigen) Augustine Metz Other [facility] [employer] Other 07-25-2017 influenza virus vaccine, unspecified formulation [facility] 07-07-2016 influenza virus vaccine, split virus (incl. purified surface antigen) Augustine Isaías Other [facility] [employer] Other 07-07-2016 influenza virus vaccine, unspecified formulation [facility] 07-18-2015 pneumococcal conjuga te vaccine, 13 valent Augustine Metz Other [facility] 06-11-2015 influenza virus vaccine, split virus (incl. purified surface antigen) Augustine Metz Other [facility] [employer] Other 06-11-2015 influenza virus vaccine, unspecified formulation [facility] 06-17-2014 tetanus and diphther ia toxoids, adsorbed, preservative free, for adult use (5 Lf of tetanus toxoid and 2 Lf of diphtheria toxoid) Augustine Metz Other [facility] 08-28-2013 pneumococcal polysaccharide vaccine, 23 valent Augustine Metz Other [facility] 07-26-2013 tetanus and diphther ia toxoids, adsorbed, preservative free, for adult use (5 Lf of tetanus toxoid and 2 Lf of diphtheria toxoid) Augustine Isaías Other [facility] 07-18-2013 zoster vaccine, live Ramirez Metz Other [facility] 1945 pneumococcal conjuga te vaccine, 7 valent Damari Rojas [facility]atology Payers Date Payer Category Payer Self-pay [id number] 2017 Unknown [employer]ADITIONAL [id number] 2017-Present [id number]. [id number] 2010 Medicare MEDICARE MEDICAR E A AND B [id number] 2010-Present [place], [place] [id number]. [id number] 2008 Medicare [id number]. 1.13.172.2.7.3. [id number] 2008 Unknown [id number]. 1.13.172.2.7.3. [id number] 1959 Medicare [id number] 2.16.840.1.451795.19 1959 Unknown [id number] 1946 Unknown [id number] 2.16.840.1.426064.3.579.2.647 1946 Unknown [id number] 2.16.840.1.458352.3.579.2.356 1946 Unknown [id number] 2.16.840.1.074232.3.579.2.356 1946 Unknown [id number] 2.16.840.1.605135.3.579.2.159 1946 Unknown [id number] 2.16.840.1.710214.3.579.2.159 1946 Unknown [id number] 2.16.840.1.076926.3.579.2.159 1946 Unknown [id number] 2.16.840.1.711651.3.579.2.159 1946 Unknown [id number] 2.16.840.1.202827.3.579.2.159 1946 Unknown [id number] 2.16.840.1.800738.3.579.2.593 1946 Unknown [id number] 2.16.840.1.585527.3.579.2.593 1946 Unknown [id number] 2.16.840.1.832205.3.579.2.593 1946 Unknown [id number] 2.16.840.1.939103.3.579.2.593 1946 Unknown [id number] 2.16.840.1.945308.3.579.2.593 1946 Unknown [id number] 2.16.840.1.334409.3.579.2.593 1946 Unknown [id number] 2.16.840.1.487955.3.579.2.593 1946 Unknown [id number] 2.16.840.1.576066.3.579.2.593 1946 Unknown [id number] 2.16.840.1.782160.3.579.2.593 1946 Unknown [id number] 2.16.840.1.142048.3.579.2.593 1946 Unknown [id number] 2.16.840.1.283231.3.579.2.593 1946 Unknown [id number] 2.16.840.1.284911.3.579.2.593 1946 Unknown [id number] 2.16.840.1.770040.3.579.2.593 1946 Unknown [id number] 2.16.840.1.238481.3.579.2.593 1946 Unknown [id number] 2.16.840.1.336460.3.579.2.593 1946 Unknown [id number] 2.16.840.1.633060.3.579.2.593 1946 Unknown [id number] 2.16.840.1.344638.3.579.2.593 1946 Unknown [id number] 2.16840.1.068368.3.579.2.593 1946 Unknown [id number] 2.840.1.089394.3.579.2.593 1946 Unknown [id number] 2.16.840.1.445388.3.579.2.593 1946 Unknown [id number] 2.16.840.1.398855.3.579.2.983 1946 Unknown [id number] 2.840.1.031425.3.579.2.983 1946 Unknown [id number] .840.1.125656.3.579.2.983 1946 Unknown [id number] 2.16.840.1.232564.3.579.2.983 1946 Unknown [id number] 2.16.840.1.303511.3.579.2.983 1946 Unknown [id number] 2.16.840.1.639946.3.579.2.983 1946 Unknown [id number] 2.16.840.1.666461.3.579.2.718 1946 Unknown [id number] 2.16.840.1.111186.3.579.2.125 1946 Unknown [id number] 2.16.840.1.141178.3.579.2.1258 1946 Unknown [id number] 2.16.840.1.558397.3.579.2.1258 1946 Unknown [id number] 2.16.840.1.421924.3.579.2.1258 1946 Unknown [id number] 2.16.840.1.505050.3.579.2.1258 1946 Unknown [id number] 2.16.840.1.785204.3.579.2.1258 1946 Unknown [id number] 2.16.840.1.849971.3.579.2.1258 1946 Unknown [id number] 2.16.840.1.222769.3.579.2.1258 1946 Unknown [id number] 2.16.840.1.015525.3.579.2.1258 1946 Unknown [id number] 2.16.840.1.887753.3.579.2.1258 1946 Unknown [id number] 2.16.840.1.469899.3.579.2.1258 1946 Unknown [id number] 2.16.840.1.858979.3.579.2.1259 Medicare [id number] Unknown [facility] [id number] Unknown [id number] 2.16840.1.826029.3.579.2.531 Unknown [id number] 2.16840.1.104664.3.579.2.531 Social History Date Type Detail Facility Start: 03-20-2020 End: 04-02-2024 Tobacco smoking status ORIS Former smoker [facility] End: 02-08-1983 History of tobacco use Current smoker [facility] Start: 03-20-2020 End: 07-08-2022 Tobacco use and exposure Former user [facility] End: 02-08-2003 History of tobacco use User of smokeless tobacco [facility] Start: 03-20-2020 End: 03-16-2023 Alcohol intake Current non-drinker of alcohol (finding) [facility] Start: 1945 Sex Assigned At Not on file A [facility] Start: 03-05-2022 End: 03-15-2022 Exposure to SARS-CoV-2 (event) Not sure [facility] Start: 03-16-2023 End: 06-30-[address] [facility] [employer] Other Start: 05-03-2022 End: 12-16-2023 Tobacco smoking status Never smoked tobacco (finding) [facility] End: 02-08-1983 History of tobacco use Cigarette Smoker [facility] Start: 09-14-2022 Dept. of D ermatology Start: 1945 Sex Assigned At Male F [facility] Start: 03-16-2023 End: 06-30-2023 History of Social function [facility] Gender identity Identifies as ma le gender (finding) [facility] Start: 08-29-2023 End: 10-28-2023 Alcohol intake Lifetime non-drinker (finding) [facility] Start: 06-23-2023 Alcohol Comment caffeine: soda [facility] Healthcare Medical Equipment Procedure Code Equipment Code [...] 05-03-2022 Functional Status N/A [facility] Clinical Notes 11-04-2021 to 03-22-2024 Note Date & Type Note Facility 03-22-2024 Note [facility] Subjective Tito Goncalves is a [...] In April 2019 he presented to the [facility] with atrial fibrillation with controlled ventricular [...] normal. Allergies [place] (more content not included)... [facility] 03-16-2024 Note Patient: Tito mejia Procedure Information Date/Time: 03/16/24 1030 Procedure: TRANSESOPHAGEAL ECHO (JESSICA) Location: [facility] Vascular Lab Clinical information reviewed: Allergies Meds Physical Exam Airway Mallampati: II TM distance: >3 FB Neck ROM: full Cardiovascular Rhythm: regular Rate: normal Dental Pulmonary Abdominal Anesthesia Plan ASA 3 other (Conscious sedation.) Anesthetic plan and risks discussed with patient. Use of blood products discussed with patient who consented to blood products. Additional Equipment Requests [facility] 02-09-2024 Note Patient here for fol low up LAAO and pericardial effusion. Still denies chest pain, SOB, palpitations, and lightheadedness/syncope. Doing very well. Review of Systems Constitutional: Positive for malaise/fatigue. Cardiovascular: Positive for leg swelling (resolves by morning). Hematologic/Lymphatic: Bruises/bleeds easily. Musculoskeletal: Positive for arthritis, back pain and myalgias. All other systems reviewed and are negative. [facility] 02-09-2024 Note Cardiovascular Medic [facility] SUBJECTIVE Chief Complaint Patient presents [...] lower leg: Naman (more content not included)... [facility] 01-29-2024 Note Patient discharged w ith family. Patient provided copy of AVS and discharge instructions. All questions and concerns addressed. All belongings with patient [facility] 01-29-2024 Note Hospital Medicine Discharge Summary Final [...] In April 2019 he presented to the [facility] with atrial fibrillation with controlled ventricular [...] switched propafenon to amiodarone. - Not on mcfp AC due to hx of falls and hx of left atrial appendage. Continue aspirin and Plavix. # EDEN, prerenal, improved. # HTN: - Continue Coreg. Amlodipine was d/oralia due to soft BP. Dear Dr. Isaías MD, [place] is advised to follow up with you within 1-2 weeks. Follow-up with: Cardiology Scheduled appointments: Future Appointments Date Time Provider Department Center 02/09/2024 9:40 AM Madison Paul NP TIMO [facility] 03/16/2024 10:30 AM [facility] HOLDING ROOM [facility] Your medication list START taking these [...] Medications These medications were sent to [facility] - [place], [place] - [address], [facility] [address] amiodarone 200 mg tablet clopidogrel 75 mg tablet Tito is allergic to iodine, penicillins, shellfish containing products, and sulfa (sulfonamide antibiotics). Disposition: Home-Health Care [facility] (06) Discharge Condition: Stable Code Status: Full [...] oriented x3. Cardiology: (more content not included)... [facility] 01-29-2024 Note Cardiology Progress Note Subjective Subjective: [...] 86 QT Interval 316 QTC CALCULATION(BAZETT) 453 R-[place] 8 T Wave [place] 100 Impression Atrial fibrillation with rapid ventricular [...] (TTE) limited Result Date: 01/27/2024 1 1 [place] [facility] [address] [place] [address] [phone] (fax) Echocardiogram-[facility] Name: TITO GONCALVES Study Date: 01/27/2024 08:18 AM B/P: 147 mmHg/62 mmHg HR: 67 bpm Date of : 1945 Location: [facility] Height: 72 in. Age: 79 year(s) Patient Room: [facility] Weight: 244 lb. Gender: Male Patient [...] fibrinous material noted. Procedure Staff Reading Group: [facility] Email Production Specialist: MARLEY Donohue, RDCS Ordering Physician: LIONEL MENA Transthoracic echo (TTE) limited Result Date: 01/26/2024 1 1 [place] [facility] [address] [place] [address] [phone] (fax) Echocardiogram-[facility] Name: TITO GONCALVES Study Date: 01/26/2024 07:59 AM B/P: 129 mmHg/74 mmHg HR: Date of : 1945 Location: [facility] Height: 72 in. Age: 79 year(s) [...] atrium appears e (more content not included)... [facility] 01-28-2024 Note Cardiology Progress Note Subjective Subjective: [...] 86 QT Interval 316 QTC CALCULATION(BAZETT) 453 R-[place] 8 T Wave [place] 100 Impression Atrial fibrillation with rapid ventricular [...] (TTE) limited Result Date: 01/27/2024 1 1 [place] [facility] [address] [place] [address] [phone] (fax) Echocardiogram-[facility] Name: TITO GONCALVES Study Date: 01/27/2024 08:18 AM B/P: 147 mmHg/62 mmHg HR: 67 bpm Date of : 1945 Location: [facility] Height: 72 in. Age: 79 year(s) [...] fibrinous material noted. Procedure Staff Reading Group: [facility] Email Production Specialist: MARLEY Donohue, RDCS Ordering Physician: LIONEL MENA Transthoracic echo (TTE) limited Result Date: 01/26/2024 1 1 [place] [facility] [address] [place] [address] [phone] (fax) Echocardiogram-[facility] Name: TITO GONCALVES Study Date: 01/26/2024 07:59 AM B/P: 129 mmHg/74 mmHg HR: Date of : 1945 Location: [facility] Height: 72 in. Age: 79 year(s) Patient Room: 322 Weight: 242 lb. Gender: Male Patient Status: [...] size. Right ventr (more content not included)... [facility] 01-28-2024 Note Physical Therapy Physical Therapy Evaluation & Treatment Patient Name: Tito Goncalves : 1945 Today's Date: 01/28/2024 Time in: 1:53 pm Time out: 2:20 pm Total time: 27 minutes 01/28/24 1422 PT Last Visit PT Received On 01/28/24 General Subjective Both RN and pt agreeable to PT this afternoon. Pt denies pain and asleep upon advertising writer entering room however easily awakens. Cognition Overall Cognitive Status WFL Arousal/Alertness Appropriate responses to stimuli Orientation Level Oriented X4 Following Commands Follows all commands and directions without difficulty Communication Intact Cognition Comments pt had difficulty navigating back to correct room after first bout of ambulation however after 2nd bout able to navigate back to room without external cues from advertising writer. Therapeutic Exercise Therapeutic Exercise Time Entry [...] tray table within reach. PT Assessment PT Assessment/CHEF INSTRUCTOR Summary Pt continues to progress towards goals [...] vital signs throughout session 01/27/24 02/10/24 -- [facility] 01-28-2024 Note Hospital Medicine Daily Progress Note - 01/28/2024 11:20 AM; Room: [facility] Admission: 01/24/2024 10:46 AM; Length of stay: 4 days THE HOSPITALIST TEAM PREFERS TO USE [employer] CHAT FOR COMMUNICATION 7AM-7PM. IF I DO NOT RESPOND WITHIN 15 MINUTES, PLEASE PAGE ME/CALL THROUGH THE DEFENSIVE SECONDARY COACH. FROM 7PM-7AM, PLEASE PAGE [phone](COVR) Code Status: Full Code Barriers to Discharge: [...] complication and patient was admitted to the [facility] for over night monitoring to [...] mg, oral, Daily (more content not included)... [facility] 01-27-2024 Note ---- Attestation signed by Srinath [...] Progress Note - 01/27/2024 12:46 PM; Room: [facility]/3167- Admission: 01/24/2024 10:46 AM; Length of stay: 3 days THE HOSPITALIST TEAM PREFERS TO USE emaze FOR COMMUNICATION 7AM-7PM. IF I DO NOT RESPOND WITHIN 15 MINUTES, PLEASE PAGE ME/CALL THROUGH THE DEFENSIVE SECONDARY COACH. FROM 7PM-7AM, PLEASE PAGE [phone](COVR) Code Status: Full Code Barriers to Discharge: [...] oral, Nightly ami (more content not included)... [facility] 01-27-2024 Note [facility] CARDIOLOGY INPAT IENT PROGRESS [...] ???F) Temporal 82 22 92 % -- 01/26/241939 -- -- -- -- -- 94 % -- 01/26/241934 -- -- -- 84 19 93 % -- 01/26/24 1930 -- -- -- (!) 128 23 93 [...] 86 QT Interval 316 QTC CALCULATION(BAZETT) 453 R-[place] 8 T Wave [place] 100 Impression Atrial fibrillation with rapid ventricular [...] function is normal. (more content not included)... [facility] 01-27-2024 Note ---- Attestation signed by Jay Benitez PT at 01/27/2024 11:18 AM This advertising writer (PT) provided one-on-one supervision, direction of [...] ECHO showed pericardial effusion, pt went to lab technologist for pericardiocentesis and currently has a pericardial [...] Level of Function Prior Function Level of [place]: Independent with ADLs and functional transfers, Independent [...] No upper extremity (more content not included)... [facility] 01-27-2024 Note Occupational Therapy Occupational Therapy Evaluation [...] Level of Function Prior Function Level of [place]: Independent with ADLs and functional transfers, Independent [...] Eating meals?: None (Independent) Total Score OT [facility]: 21 Assessment/Plan OT Assessment OT Impairments: [...] times per wee (more content not included)... [facility] 01-26-2024 Note ---- Attestation signed by Lionel [...] [facility]calves Age - 79 [facility] 1945 [id number] Date of Admission - 01/24/2024 10:46 AM [...] 7 days Lab Units 01/26/24 03301/25/24 0438 WBC AUTO 10*3/uL 12.08* 13.57* HEMOGLOBIN g/dL 10.6* 11.0* HEMATOCRIT % 33.2* 34.5* PLATELETS AUTO 10*3/uL 123* 191 Coagulation: Results from last 7 days Lab Units 01/25/24 0456 01/24/24 1056 INR 1.24* -- PINR -- 1.1 Metabolic Panel: Results from last 7 days Lab Units 01/26/24 03301/25/24 04301/24/24 1556 POTASSIUM mmol/L 3.9 5.0 4.3 CHLORIDE [...] in limited echocar (more content not included)... [facility] 01-26-2024 Note ---- Attestation signed by Zoran [...] Value Ventricular Rate 52 Atrial Rate 52 OR Interval 184 QRS DURATION 84 QT Interval 424 QTC CALCULATION(BAZETT) 394 P [place] 79 R-[place] 51 T Wave [place] 76 Impression Sinus bradycardia Nonspecific T wave abnormality Abnormal ECG (more content not included)... [facility] 01-26-2024 Note 01/26/24 1243 Admission Assessment Questions Verify insurance with patient Yes Do you understand medical disease or what brought you into the hospital? Yes Who is your current PCP? Dr Metz in [place] Can I schedule a follow up appointment [...] No Does the patient have a case packer and sealer assigned to them through their insurance? No [...] to send link and activate MyChart? No [facility] 01-25-2024 Note ---- Attestation signed by Zoran [...] 75 mg, 75 mg, oral, Daily, Lilibeth aMrch MD, 75 mg at 01/25/24 1006 glucose [...] -- -- 70 17 95 % -- 05/01/24 0634 100/61 36 ???C (96.8 ???F) Temporal [...] -- -- 56 14 96 % -- 01/25/245 72/53 -- -- -- -- -- -- [...] -- 01/25/24 0 (more content not included)... [facility] 01-25-2024 Note Patient: Tito mejia Procedure Information Date/Time: 01/25/24 1800 Procedure: Pericardiocentesis Location: [facility] / [facility] (Cath) Providers: Oliver [...] Plan discussed with attending. Additional Equipment Requests [facility] 01-25-2024 Note CLINICAL INFORMATION : Ground level [...] this report. Electronically signed: Trenton Martinez. 6 [facility] 01-25-2024 Note Responded to rr Hypotension fall [...] [facility] 01-24-2024 Note Pharmacy Dosing Serv ice - Vancomycin Initial Consult Note Pharmacy has been consulted for the dosing and evaluation of Drug: Vancomycin Indication: surgical prophylaxis Other Antimicrobial Regimens: None Labs and Renal Function Total body weight: 112 kg (248 lb) [place] body weight: 77.6 kg (171 lb 1.2 [...] is afebrile and hemodynamically stable. Presenting to [facility] for closure of left atrial appendage. [...] questions Thank you, Rose Tomas, PharmD, 01/24/24 [facility] 01-24-2024 Note Patient: Tito mejia Procedure Information Date/Time: 01/24/24 1300 Procedure: Left atrial appendage closure (transvenous) - ADRIENNE WILL CALL Location: [facility] / [facility] (Cath) Providers: Oliver Crane MD Clinical information reviewed: Allergies Meds Physical Exam Airway Mallampati: II TM distance: >3 FB Neck ROM: full Cardiovascular Rhythm: regular Rate: normal Dental Pulmonary Abdominal Anesthesia Plan ASA 3 other (Conscious sedation.) Anesthetic plan and risks discussed with patient. Use of blood products discussed with patient who consented to blood products. Additional Equipment Requests [facility] 01-11-2024 Note Amna Sousa CNP - patient's daughter- called with questions about her dad's upcoming LAAO procedure. She said you had given her instructions for him previously regarding coumadin, but she cannot find it. Can you please call her cell phone when you get a chance? [phone] If you need me to do anything, please let me know. Thanks! :) [facility] 10-31-2023 Evaluation note Encounter Date Diagnosis Assessment [...] are maintaining regular scheduled appts with their drum printer. Scheduled for LAAO procedure but postponed until spring. Fall precautions. Oct, Obstructive sleep apnea (ICD-10 - G47.33) Auto CPAP 10-15, Facial Mask This patient is aware of the benefits associated with CUBA: With continued use, the patient reduces the risk for MT, CVA, HTN, cardiac dysrhythmias and sudden cardiac [...] Exercise w/ goal of 10% weight loss [employer] Other 02-02-2024 NoteRight Eye Quality was good. Scan locations included subfoveal. Progression has been stable. Findings include abnormal foveal contour, disciform scar. Left Eye Quality was good. Scan locations included subfoveal. Progression has been stable. Findings include normal observations.[id number] History of Present illness Narrative* Jose R [...] now given soon to be trip to [place] as well as side effects from last treatment in August. He was provided an Amsler grid to check daily and note any changes to this. He understands to get ahold of his retina specialist in [place] if there was a change. Will see [...] artificial tears were recommended. documented in this encounterLake Regional Health [id number] NoteBELLEVUE [facility]IC Card[facility] Note Chief Complaint: [...] PSYCH: appropriate mood, affect, and judgement. Transesophageal Echocardiogram-[facility] Name: TITO GONCALVES Study Date: 09/16/2023 09:38 AM B/P: 136 mmHg/70 mmHg HR: Date of : 1945 Location: [facility] Height: 72 in. Age: 78 year(s) Patient Room : [facility] VASCULAR POOL Weight: 246 lb. Gender: Male Patient Status: OutPt BSA: 2.33 m2 Indication: Atrial Fibrillation, Pre LAAO closure Examination: JESSICA/Limited Doppler/CFI, Agitated Saline, 3D images Image Quality: Good Patient Consent: Informed, written consent was obtained for the procedure s p @ c 3 Exam Location: A JESSICA was performed in the Suction Drum Drier Operator without complications s p @ c 3 [...] should problems arise Maggy Murphy MD, MPH, [facility], [facility], [facility] Interventional Cardiology Pager Email: [email or web address] NoteUT Cardiology - [facility] Subjective Tito Goncalves is a 78 y.o. year old male patient being seen to discuss LAAO. He presented to [facility] ED in Jun 2023 for fall. He is anticoagulated with warfarin for afib. Back in December 2022 he had brain bleed s/p fall. Was treated at [facility]. He denies chest pain, SOB, and [...] In April 2019 he presented to the [facility] with atrial fibrillation with controlled ventricular [...] Take 1 tablet (more content not included)... [facility]06-21-2023 History of Present illness Narrative* Shannen Chahal - 03/16/2023 11:20 AM EDT Ortho Nurse - Established Patient Intake Room#: 5 Date: 03/16/2023 11:20 AM Patient: Tito Goncalves MR#: [id number] : 1945 Age: 78 y.o. 1yr R [...] Past Medical History: Diagnosis Date Skin cancer 2014 2018,2014 Arrhythmia afid not since 2018 Diabetes mellitus [...] have reviewed the findings of the clinical desktop support specialist and agree with their assessment. Ortho Nurse - Established Patient Intake Room#: 5 Date: 03/16/2023 11:20 AM Patient: Tito Goncalves MR#: [id number] : 1945 Age: 78 y.o. 1yr R [...] allergy, and sulfa antibiotics. documented in this [facility]04-29-2023 Evaluation note* Encounter Date Diagnosis Assessment Notes Treatment Notes Treatment Clinical Notes Dec, Subarachnoid hemorrhage (ICD-10 - I60.9) S[place] Other 04-12-2023 Evaluation note* Encounter Date Diagnosis [...] are maintaining regular scheduled appts with their drum printer. Dec, Obstructive sleep apnea (ICD-10 - G47.33) Auto CPAP 10-15, Facial Mask This patient is aware of the benefits associated with CUBA: With continued use, the patient reduces the risk for MT, CVA, HTN, cardiac dysrhythmias and sudden cardiac [...] and weight loss. Improved control of BS Sorbent [place] Other 02-15-2023 Evaluation note* Encounter Date Diagnosis Assessment Notes Treatment Notes Treatment Clinical Notes Oct, Cholecystitis (ICD-1 0 - K81.9) S[place] Other 02-14-2023 NotePatient Education Material [facility] ENDOSCOPY DEPARTMENT FOLLOW UP CARE ? For [...] physician?s office at: THANK YOU FOR CHOOSING [facility] ENDOSCOPY DEPARTMENT FOR YOUR PROCEDURE! [phone] This information is not intended to replace advice given to you by your health care provider. Make sure you discuss any questions you have with your health care provider. ExitCare? Patient Information ?2016 [employer]. Custom Education added 09/2018[facility]02-14-2023 NoteNursing Discharge Summary Entered On: 11/09/2022 8:44 EST Performed On: 11/09/2022 8:43 EST by Abdoul GAVIN, Sariah Blackman DC Information Discharged to : Home Mode [...] Present : Daughter Sariah Schreiber RN R 11/09/2022 8:43 [facility]01-09-2023 Evaluation note* Encounter Date Diagnosis Assessment Notes [...] use, the patient reduces the risk for MT, CVA, HTN, cardiac dysrhythmias and sudden cardiac [...] INR being monitored, no bleeding complications noted [place] Other 10-13-2022 History of Present illness Narrative* Luis Wang LPN - 07/08/2022 11:20 AM EDT Ortho Nurse - Established Patient Intake Room#: 2 4 month Right TKA, some pain of 1-2 when weed eating, going great Date: 07/08/2022 11:51 AM Patient: Tito Goncalves MR#: [id number] : 1945 Age: 77 y.o. Referring Physician: [...] have reviewed the findings of the clinical desktop support specialist and agree with their assessment. Ortho Nurse - Established Patient Intake Room#: 2 4 month Right TKA, some pain of 1-2 when weed eating, going great Date: 07/08/2022 11:51 AM Patient: Tito Goncalves MR#: [id number] : 1945 Age: 77 y.o. Referring Physician: [...] KNEE TOTAL Right 03/15/2022 Laterality: Right; Surgeon: aPstor Bedoya MD; Location: [facility] OR REVISION [...] allergy, and sulfa antibiotics. documented in this [facility]08-08-2022 Hospital Discharge instructions Patient Education 05/03/2022 08:55:03 [...] urethra. Follow these instructions at home: Take cdcc-omk-ntnfjef and prescription medicines only as told by [...] 09/12/2006 Document Revised: 08/07/2019 Document Reviewed: 10/17/2017 [employer] Patient Education 2020 [employer]. Follow Up Care 04/27/2021 11:05:10 With:GAGE UMANZOR, Mc Blackman, URL Address: [facility] [address], [place] [address]- [phone] When: Unknown Comments:[facility] History of Present illness Narrative* Shannen Tirso - 04/08/2022 10:00 AM EDT Ortho Nurse - Established Patient Intake Room#: 5 Date: 04/08/2022 9:50 AM Patient: Tito Goncalves MR#: [id number] : 1945 Age: 77 y.o. 3wk S/P [...] allergy, and sulfa antibiotics. * Azul Rachel APRN-ACCOUNT DEVELOPMENT EXECUTIVE - 04/08/2022 10:00 AM EDT HPI: Tito [...] roller. All pertinent portions of the clinical desktop support specialist documentation was reviewed and agree. EDYTA Ayala I have reviewed the findings of the clinical desktop support specialist and agree with their assessment. EDYTA Ayala Ortho Nurse - Established Patient Intake Room#: 5 Date: 04/08/2022 9:50 AM Patient: Tito Goncalves MR#: [id number] : 1945 Age: 77 y.o. 3wk S/P [...] allergy, and sulfa antibiotics. documented in this encounterMiddletown [facility]06-[facility]22 Miscellaneous Notes* Nursing Notes - Kirsten [...] Information Source Information Source patient Contact Information Material Damage Appraiser Name Gini Medrano RN Case Manager's Living [...] that he plans to return home with [facility]. The patient states that his daughter [...] assist with discharge plans. documented in this encounterSt. Anthony HospitalThru, Inc. [facility] Waters [id number] Note* Nursing Notes - Kirsten Crawford RN - 03/16/2022 3:01 PM EDT Discharge instructions gone over with pt and pt's daughter at this time by Regina GAVIN. Both, verbalize understanding and deny any further questions. Hemovac drain removed at this time, tip intact upon removal, pt tolerated well. St. [facility] HospitalTablo [id number] History of Present illness Narrative* Blanca Liv, CHEF INSTRUCTOR - 03/16/2022 2:21 PM EDT 03/16/22 1421 [...] Transfer Skill: Sit To Stand, Rehab Eval [place] (Sit-Stand Transfers) (mod I) Physical Assist/Nonphysical Assist: Sit/Stand 1 person assist Weight-Bearing Restrictions: Sit/Stand weight-bearing as tolerated Assistive Device For Transfer: Sit/Stand armed chair Gait Skills, PT Eval Level of [place]: Gait (mod I) Weight-Bearing Restrictions: Gait weight-bearing as tolerated Assistive Device For Transfer: Gait 2 wheeled walker Gait Distance (600ft; patient demonstrates a good quality heel - toe pattern consistently throughtout treatment) Stair Negotiation [place] Level: Stair Negotiation supervision Physical Assist: Stair [...] 100mg 4.00 Total $ 20.60 Birgit Henriquez (Advanced Practice Professional) reviewed medications with patient regarding indications, directions [...] Surgical Procedure Underwent R TKA by Dr. Bdeoya on 03/15/2022. Past Surgical History Past Surgical [...] Sit to Stand, Rehab Eval Level of [place]: Sit/Stand contact guard Physical Assist/Nonphysical Assist: Sit/Stand 1 person assist Weight-Bearing Restrictions: Sit/Stand weight-bearing as tolerated Assistive Device for Transfer: Sit/Stand wheeled walker;armed chair Transfer Skill: Stand to Sit, Rehab Eval Level of [place]: Stand/Sit contact guard Physical Assist/Nonphysical Assist: Stand/Sit [...] Prior Functional Impairment in Daily Activity CURRENT AM-PAC Daily Activity Inpatient Short Form Putting on/Taking Off Lower Body Clothing 3 - A Little Assistance Bathing 3 - A Little Assistance Toileting 3 - A Little Assistance Putting on/Taking Off Upper Body Clothing 3 - A Little Assistance Grooming 3 - A Little Assistance Eating 4 - No Assistance CURRENT AM-PAC Activity Raw Score 19 CURRENT AM-PAC Activity [...] initiation of treatment Therapist Information License # [id number] In addition to above, ambulated with CGA using FWW. Reclined in chair at end of session with his call light and personal items placed in reach. Jennifer Saab OTR/L 03/16/2022 * Pato Gutierrez - 03/16/2022 11:46 AM EDT Pharmacy to Dose - Warfarin Note PATIENT: Tito Goncalves Room/Bed: [facility]/ Desired INR range: 2-3 Indication(s): Atrial Fibrillation Medications: No drug interactions were identified based on the patient's current therapy. Current Diet Status: Regular Recent bleeding/bleeding event: None noted Last labs: INR Date Value Ref Range Status 03/16/2022 1.37 (H) 0.85 - 1.10 Final Comment: 2.0-3.0 THERAPEUTIC RANGE 2.5-3.5 MECHANICAL VALVE RANGE Testing performed at [facility], [place], [place] [address] - ALBUMIN Date Value Ref Range Status 03/16/2022 3.3 (L) 3.5 - 5.0 G/dl Final - Plan: An order was placed for Coumadin 7.5 mg today x 1 based on INR = 1.37. A Pharmacist will continue to follow and make dose changes as clinically appropriate. Please contact pharmacy if there are any questions. Signed: Pato Gutierrez Pharmacist Phone: [phone] Date/Time: 03/16/2022 11:46 AM * Yashira Valencia [...] 3/5) LLE WFL Supine to Sit Mobility [place] Level: Supine->Sit stand-by assist Physical Assist: Supine->Sit (1 person) Bed Features/Set-up: Supine->Sit Head of bed elevated Skilled Rationale Verbal cues;Sequencing Sit to Stand Transfer [place] Level: Sit->Stand stand-by assist Physical Assist: Sit->Stand (1 person) Assistive Device: Sit->Stand 2 wheeled walker;gait belt Skilled Rationale Verbal cues;Hand placement;Sequencing Stand to Sit Transfer [place] Level: Stand->Sit stand-by assist Physical Assist: Stand->Sit (1 person) Assistive Device: Stand->Sit 2 wheeled walker;gait belt Skilled Rationale Verbal cues;Hand placement;Sequencing;Controlled descent for sitting Sitting Balance Static Sitting-Level of Assistance Independent Standing Balance Static Standing-Level of Assistance Stand-by assist Dynamic Standing-Level of Assistance Stand-by assist Standing-Balance Support 2 wheeled walker;Gait belt Skilled Rationale Verbal cues;Full extension to upright positioning/posture;Upright gaze/neck extension Gait Assessment [place] Level: Gait contact guard assist Physical Assist: [...] ARTHROPLASTY KNEE TOTAL Left 06/23/2015 CHOLECYSTECTOMY 2012 terminal make up operator goals, to be achieved at discharge: 1. [...] to maintain therapy gains at discharge Yashira Valencia, PT 03/16/2022 * Angela Solis, RD - [...] (248 lb) 02/08/18 117.9 kg (260 lb) [place] body weight: 77.6 kg (171 lb 1.9 [...] plan. Patient plans to return home with [facility]. His daughter will be staying with [...] Warfarin and PT/INR management. Questions answered regarding [facility], patient denies any other questions or needs at this time. Referral information with orders for PT/INR faxed to [facility], spoke with staff who confirm start of care for tomorrow. Follow up appointment scheduled for 04/08/22 @ 10:00 am. * Grupo Morgan RPh,PharmD - 03/15/2022 6:24 PM EDT Pharmacy to Dose - Warfarin Note PATIENT: Tito Goncalves Room/Bed: [facility] Desired INR range: 2-3 Indication(s): Atrial Fibrillation Last labs: INR Date Value Ref Range Status 03/15/2022 1.36 (H) 0.85 - 1.10 Final Comment: 2.0-3.0 THERAPEUTIC RANGE 2.5-3.5 MECHANICAL VALVE RANGE Testing performed at [place], [place] [address] - ALBUMIN Date Value Ref Range Status 02/18/2022 3.8 3.5 - 5.0 G/dl Final - Plan: An order was placed for 5 mg based on current Home Dosage. A Pharmacist will continue to follow and make dose changes as clinically appropriate. Please contact pharmacy if there are any questions. Signed: Grupo Morgan RPh,PharmD, Pharmacist Phone: [phone] Date/Time: 03/15/2022 6:24 PM * Samantha Miner - 03/15/2022 4:49 PM EDT THIS PATIENT HAS HAD ORTHOPEDIC SURGERY AND IS EXPECTED TO HAVE PAIN REQUIRING NARCOTICS FOR >7 DAYS AND MAY NEED UP TO 12 tabs of Oxycodone PER DAY AND THEREFORE 30 tabs ARE BEING DISPENSED IN ACCORDANCE WITH POC DISCUSSED WITH DR BEODYA. * Caren Perez RN - 02/24/2022 1:16 [...] Previous Messages ----- Message ----- From: Caren Perze RN Sent: 02/19/2022 8:03 AM EDT To: Archana Urena RN, Iftikhar Yip DO Subject: ekg Pt is getting pcp clearance, Please review EKG and advise. Thanks! Let us know If you require anything further documented in this [facility]06-21-2022 Note* Nursing Notes - Dian Roberts RN [...] anxious to head home and settle in. [facility]06-[facility] Hospital Discharge instructions* Discharge Instructions* Kirsten [...] days or until therapeutic with results to [place] [facility]. , Contact Office ([phone]) if: > Total Knee ROM < 90 [...] sent through Care Everywhere. * docusate (oral/rectal) (Tuvaluan) * oxycodone (Tuvaluan) documented in this [facility]06-21-2022 Note* Plan of Care - Regina Rios [...] discharge/transition of care. Outcome: Adequate for Discharge [facility]06-21-2022 Note* Nursing Notes - Kirsten Crawford RN - 03/16/2022 11:39 AM EDT Assessment unchanged from previous by this nurse unless otherwise noted in flowsheet [facility]06-21-2022 Hospital course Narrative* Domenico Ferguson MD - 03/16/2022 8:54 AM EDT Images from the original note were not included. Discharge Summary Name: Tito Goncalves Age: 77 y.o. Birthday: 1945 Admit Date: 03/15/2022 8:10 AM Discharge Date: 03/16/2022 Discharge Time: 03/16/2022 Discharge Unit: [facility] Rehab unit Unit Length of Stay: [...] insulin restless leg. Kidney stones, [facility] for elective rig ht total knee [...] as: COUMADIN STOP taking these medications Glucosamine-Chondroitin 0930-9428 MG/30ML LIQD Follow-up: No follow-up provider specified. Upcoming Appointments (up to five)-Some appointments for Medical Center outpatient clinics or diagnostic testing locations are not displayed below Provider Department Dept Phone 04/08/2022 10:00 AM [facility] [phone] Total coordination of discharge care taking greater that 35 minutes documented in this [facility] Note* Plan of Care - Birgit Thakur RN - 03/16/2022 3:25 AM EDT Problem: Patient Care Overview Goal: Plan of Care Review Outcome: Ongoing Flowsheets (Taken 03/16/2022 0306) Plan Of Care Reviewed With: patient Problem: [...] Devices: pillows Note: IVÁN Hose, Foot pumps [facility] Planex [id number] Note* Nursing Notes - Birgit Thakur RN - 03/16/2022 3:09 AM EDT Assessment remains unchanged unless otherwise noted in flow sheet. Pt denies pain. Neuro/pulses unchanged. New bag of NS hung at this time. Vitals WDL. Pt denies any needs and call light is in reach. [facility]06-20-2022 Note* Nursing Notes - Birgit Thakur RN - 03/15/2022 11:59 PM EDT Assessment remains unchanged unless otherwise noted in flow sheet. Pt denies any pain. Neuro/pulsesunchanged. NS infusing @ 100ml/hr and Ancef administered. Pt denies any needs and call light is in reach. [facility]-20-[facility] Note* Nursing Notes - Birgit Thakur RN - 03/15/2022 8:06 PM EDT RT called at this time due to O2 change from 1.5 to 1L. Pt also has home CPAP/BIPAP device. RT madeaware. [facility]06-20-[facility] Note* Nursing Notes - Araseli Ron RN - 03/15/2022 5:53 PM EDT Patient tolerating clear liquids at this time, diet advanced per orders. [facility]06-20-[facility] Consult note* Domenico Ferguson MD - 03/15/2022 4:10 PM EDT History and Physical Examination 03/15/22 4:10 PM Chief Complaint: Right total knee arthroplasty History of Present Illness: Patient is a 77 y.o. male presents for [facility] for elective right total knee arthroplastyDr. Daryl March 15 Internal medicine consult added for [...] mg by mouth daily. Historical Provider Glucosamine-Chondroitin 8437-2475 MG/30ML Liquid Take by mouth. Historical Provider [...] 81 mg by mouth daily. 03/04/2022 Glucosamine-Chondroitin 1126-2632 MG/30ML Liquid Take by mouth. Multiple Vitamins-Minerals [...] OT, ST and SW. Domenico Ferguson MD [facility]06-20-20[facility] Consult note* Domenico Ferguson MD - 03/15/2022 4:10 PM EDT History and Physical Examination 03/15/22 4:10 PM Chief Complaint: Right total knee arthroplasty History of Present Illness: Patient is a 77 y.o. male presents for [facility] for elective right total knee arthroplastyDr. [...] mg by mouth daily. Historical Provider Glucosamine-Chondroitin 2761-9151 MG/30ML Liquid Take by mouth. Historical Provider [...] every evening at 6 PM. 03/14/2022 at [address] aspirin EC [address] Take 81 mg by mouth daily. 03/04/2022 Glucosamine-Chondroitin 8206-2030 MG/30ML Liquid Take by mouth. Multiple Vitamins-Minerals [...] SW. Domenico Ferguson MD documented in this encounterMiddletown [facility]06-20-2022 Note* Nursing Notes - Araseli Ron RN - 03/15/2022 2:26 PM EDT Patient to OR at this time. [facility]06-20-[facility] Note* Nursing Notes - Araseli Ron RN - 03/15/2022 11:57 AM EDT Patient assessment unchanged from previous. Patient ambulated to bathroom and voided. Patient denies any needs at this time. Call light in reach. [facility]05-26-2022 Note* Nursing Notes - Gini Medrano RN - 02/18/2022 1:25 PM EDT 02/18/22 1324 Information Source Information Source patient Contact Information Material Damage Appraiser Name Gini Medrnao RN Case Manager's Living Environment Lives With [...] that he plans to return home with [facility]. The patient states that his daughter [...] to follow and assist with discharge plans. [facility]04-28-2022 History of Present illness Narrative* Luis Wang LPN - 2022 1:10 PM EDT Ortho Nurse - Established Patient Intake Room#: 1 Right knee pain of 9, no interventions, falls, or injuries, came in today with left knee pain, left knee revision 2016 Dr Bedoya Date: 2022 1:06 PM Patient: Tito Goncalves MR#: [id number] : 1945 Age: 77 y.o. Referring Physician: [...] a right total knee arthroplasty for optimal terminal operations supervisor management. PHYSICAL EXAM: This is an alert, [...] joint space, subchondral sclerosis, osteophyte formation, and adtx-oi-krsu contact with posterior loosebodies. He has a [...] of limb, and ultimately loss of life. terminal make up operator expectations, risks and general implant surv ivorship were also discussed. Despite these risks, the patient would like to proceed with surgical planning. Today, we will initiate the pre-surgical process including nasal MRSA screening, scheduling an appointment for [facility] and the potential surgical date, and reviewing [...] Swelling Sulfa Antibiotics Swelling documented in this encounterMiddletown Hospital02-09-2022 Evaluation note* Encounter Date Diagnosis Assessment Notes Treatment Notes Treatment Clinical Notes Oct, Choledocholithiasis (ICD-10 - K80.50) Oct, Pancreatic cyst (ICD -10 - K86.2) [place] Other Evaluation + Plan note No data available for this section [facility]* Diagnosis Right knee pain, unspecified chronicity- Primary Pain in prosthetic joint, sequela documented in this encounter [facility]* Diagnosis Preop testing- Primary Preoperative examination, [...] Hyposmolality and/or hyponatremia documented in this encounter [facility] [employer] noteNo [employer] RightsRincon [place] Other Evaluation note* Diagnosis Hx of total knee arthroplasty, right- Primary documented in this encounter [facility]* Diagnosis Hx of total knee arthroplasty, right- Primary documented in this encounter [facility] noteN/ADept. of Dermatology Evaluation note* Diagnosis Hx of total knee arthroplasty, right- Primary documented in this encounter [facility] note* Diagnosis 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- Primary Age-related nuclear cataract of both eyes Dry eyes Unspecified tear film insufficiency documented [facility] this encounter [facility]* Diagnosis Onset Date Resolution Status Atrial fibrillation acute Chronic kidney disease acute GERD (gastroesophageal reflux disease) acute Hemopericardium acute Hypercholesterolemia acute Hypertension acute CUBA (obstructive sleep apnea) acute [facility] Work Phone: Evaluation note* Diagnosis Onset Date Resolution Status Atrial fibrillation acute Chronic kidney disease acute Hemopericardium acute Hypertension acute Obesity acute CUBA (obstructive sleep apnea) acute Cellulitis of right upper extremity noneactive [facility] Work Phone: Evaluation note* Diagnosis Onset Date Resolution Status Atrial fibrillation acute Chronic kidney disease acute Hemopericardium acute Hypertension acute Obesity acute CUBA (obstructive sleep apnea) acute Cellulitis of right upper extremity noneactive Atrial fibrillation acute Chronic kidney disease acute Hypertension acute Obesity acute CUBA (obstructive sleep apnea) acute Type 2 diabetes mellitus with hyperglycemia acute [facility] Work Phone: Evaluation note* Diagnosis Onset Date Resolution Status Atrial fibrillation acute Chronic kidney disease acute Hemopericardium acute Hypertension acute Obesity acute CUBA (obstructive sleep apnea) acute Cellulitis of right upper extremity noneactive Atrial fibrillation acute Chronic kidney disease acute Hypertension acute Obesity acute CUBA (obstructive sleep apnea) acute Type 2 diabetes mellitus with hyperglycemia acute Anemia acute Atrial fibrillation acute Chest pain acute Chronic kidney disease acute Hypertension acute CUBA (obstructive sleep apnea) acute Type 2 diabetes mellitus with hyperglycemia acute [facility] Work Phone: Histuqu general Narrative - Reported* Type Description Date Medical History hyperlipidemia Medical History GERD Medical History HTN Medical History a.fib Medical History recurrent choledocholithiasis Surgical History LEFT KNEE Surgical History CHOLECYSTECTOMY 2012 Hospitalization History see above [place] Other History general Narrative - Reported* Type [...] stint removal 2013 Surgical History Cardio-version (A-Fib) 2013 Surgical History Cardio-version (A-Fib) 2014 Surgical History ERCP (stone removal) 2014 Surgical History ERCP w/ stone removal 10/2022 Hospitalization History see above [place] Other Hishbzt general Narrative - Reported* Type Description Date [...] stone removal 10/2022 Hospitalization History see above [place] Other History general Narrative - Reported* Type [...] History Colonoscopy 2020 Hospitalization History see above [place] Other Hospital Discharge instructions Additional Instructions 1. Sleep on 2 pillows 2. You may shower late tomorrow afternoon, keep wounds dry and clean 3. Small amount of Vaseline to sutures twice daily 4. Tylenol or Motrin for discomfort 5. See Dr. Freitas in [facility] Work Phone: Progress note No data available for this section [facility] reason for referral (narrative)* Name Reason for referral NA NA Dept. 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 Summary Purpose Family History No Family History [...] father Heart disease Unknown Diabetes mellitus Unknown Relationship Condition Age at Onset Recorded Date/T rolando mother Cerebral hemorrhage Unknown Malignant neoplasm of breast [...] Advance Directives No November 04, 2021 2:26pm Advance Directive Response Recorded Date/ Time Advance Directives No April 02 12:19pm Reason for Referral Status Reason Specialty Diagnoses / Procedures Referred By Contact Referred To Contact New Request Diagnoses History of revision of total replacement of left knee joint Procedures XR KNEE LEFT 3 VIEWS Azul Rachel, VEHICLE WASHER-ACCOUNT DEVELOPMENT EXECUTIVE [address] [place] [address] Specialty Diagnoses / Procedures Referred By Contac t Referred To Contact Diagnoses Pain in prosthetic joint, sequela Procedures XR KNEE LEFT 3 VIEWS Pastor Bedoya MD [address] [place] [id number] Referral ID Status Reason Start Date Expiration Date V isits Requested Visits Authorized [id number] New Request 2022 02/15/2023 1 1 Specialty Diagnoses / Procedures Referred By Contac t Referred To Contact Diagnoses Right knee pain, unspecified chronicity Procedures XR KNEE RIGHT 4+ VIEWS Pastor Bedoya MD [address] [place] [address] Referral ID Status Reason Start Date Expiration Date V isits Requested Visits Authorized [id number] New Request 01/15/2022 02/09/2023 1 1 Specialty Diagnoses / Procedures Referred By Contac t Referred To Contact Social Work Diagnoses Restless leg syndrome Stage 3a chronic kidney disease S/P total knee arthroplasty, right Paroxysmal atrial fibrillation Type 2 diabetes mellitus without complication, without long-term current use of insulin Domenico Ferguson MD [address] [place] [id number] Referral ID Status Reason Start Date Expiration Date V isits Requested Visits Authorized [id number] New Request 03/16/2022 04/10/2023 1 1 Specialty Diagnoses / Procedures Referred By Contac t Referred To Contact Diagnoses Acute postoperative pain of right knee Samantha Miner [address] [place] [address] Referral ID Status Reason Start Date Expiration Date V isits Requested Visits Authorized [id number] New Request 03/15/2022 04/09/2023 1 1 Scheduling Instructions . Specialty Diagnoses / Procedures Referred By Contac t Referred To Contact Physical Therapy Diagnoses Hx of total knee arthroplasty, right VirginieAzul ramirez, VEHICLE WASHER-ACCOUNT DEVELOPMENT EXECUTIVE [address] [place], [place] [phone] [facility] [address] [place] [address] Referral ID Status Reason Start Date Expiration Date V isits Requested Visits Authorized [id number] New Request 04/08/2022 05/03/2023 1 1 Specialty Diagnoses / Procedures Referred By Contac t Referred To Contact Diagnoses Hx of total knee arthroplasty, right Procedures XR KNEE RIGHT 3 VIEWS Azul Rachel, VEHICLE WASHER-ACCOUNT DEVELOPMENT EXECUTIVE [address] [place] [phone] Referral ID Status Reason Start Date Expiration Date V isits Requested Visits Authorized [id number] New Request 03/31/2022 04/25/2023 1 1 Specialty Diagnoses / Procedures Referred By Contac t Referred To Contact Diagnoses Hx of total knee arthroplasty, right Procedures XR KNEE RIGHT 3 VIEWS Pastor Bedoya MD [address] [place] [address] Referral ID Status Reason Start Date Expiration Date V isits Requested Visits Authorized [id number] New Request 07/02/2022 07/27/2023 1 1 Specialty Diagnoses / Procedures Referred By Contac t Referred To Contact Diagnoses Hx of total knee arthroplasty, right Procedures XR BONE LENGTH STUDY Pastor Bedoya MD [address] [place] [phone] Referral ID Status Reason Start Date Expiration Date V isits Requested Visits Authorized [id number] New Request 07/02/2022 07/27/2023 1 1 Referral ID Status Reason Start Date Expiration Date V isits Requested Visits Authorized [id number] New Request 03/15/2023 04/08/2024 1 1 History [...] have reviewed the findings of the clinical desktop support specialist and agree with their assessment. Ortho Nurse Established Patient Intake Room#: 5 Date: 03/20/2020 11:10 AM Patient: Tito Goncalves MR#: [id number] : 1945 Age: 75 y.o. 3 yr [...] 03/20/2020 11:10 AM Patient: Tito Goncalves MR#: [id number] : 1945 Age: 75 y.o. 3 yr [...] apnea) Type 2 diabetes mellitus with hyperglycemia Chief Complaint Amb Documentation hospital follow up scalp wound scalp wound 4 month follow up [facility] follow up, chest pain Reason for Visit Atrial fibrillation Chronic kidney disease Hemopericardium Hypertension Obesity CUBA (obstructive sleep apnea) Cellulitis of right upper extremity Atrial fibrillation Chronic kidney disease Hypertension Obesity CUBA (obstructive sleep apnea) Type 2 diabetes mellitus with hyperglycemia Anemia Atrial fibrillation Chest pain Chronic kidney disease Hypertension CUBA (obstructive sleep apnea) Type 2 diabetes [...] section and content) DATE CREATED AUTHOR 03/21/2018 [facility] DATE CREATED AUTHOR AUTHOR'S ORGANIZ ATION 06/15/2019 [facility] DATE CREATED AUTHOR AUTHOR'S ORGANIZ ATION 03/25/2022 [facility] DATE CREATED AUTHOR AUTHOR'S ORGANIZ ATION 05/04/2022 [facility] DATE CREATED AUTHOR AUTHOR'S ORGANIZ ATION 10/04/2022 [facility] DATE CREATED AUTHOR AUTHOR'S ORGANIZ ATION 02/02/[address] [facility] DATE CREATED AUTHOR AUTHOR'S ORGANIZ ATION 03/05/2023 [facility] DATE CREATED AUTHOR AUTHOR'S ORGANIZ ATION 03/20/2023 [facility] DATE CREATED AUTHOR AUTHOR'S ORGANIZ ATION 07/12/2023 [facility] DATE CREATED AUTHOR AUTHOR'S ORGANIZ ATION 03/06/2024 [facility] DATE CREATED AUTHOR AUTHOR'S ORGANIZ ATION 03/23/2024 [facility] DATE CREATED AUTHOR AUTHOR'S ORGANIZ ATION 04/11/2024 [facility] EPIC Reason for Visit (unrecogniz ed section and content) Reason Comments Follow-up Status Reason Specialty Diagnoses / Procedures Referred By Contact Referred To Contact New Request Diagnoses History of revision of total replacement of left knee joint Procedures XR KNEE LEFT 3 VIEWS Azul Rachel, VEHICLE WASHER-ACCOUNT DEVELOPMENT EXECUTIVE [address] [place] [address] Reason Comments Pain Specialty Diagnoses / Procedures Referred By Contac t Referred To Contact Diagnoses Pain in prosthetic joint, sequela Procedures XR KNEE LEFT 3 VIEWS Pastor Bedoya MD [address] [place] [phone] Referral ID Status Reason Start Date Expiration Date V isits Requested Visits Authorized [id number] New Request 2022 02/15/2023 1 1 Specialty Diagnoses / Procedures Referred By Contac t Referred To Contact Diagnoses Right knee pain, unspecified chronicity Procedures XR KNEE RIGHT 4+ VIEWS Pastor Bedoya MD [address] [place] [address] Referral ID Status Reason Start Date Expiration Date V isits Requested Visits Authorized [id number] New Request 01/15/2022 02/09/2023 1 1 Specialty Diagnoses / Procedures Referred By Contac t Referred To Contact Diagnoses Hx of total knee arthroplasty, right Procedures XR KNEE RIGHT 3 VIEWS Azul Rachel, VEHICLE WASHER-ACCOUNT DEVELOPMENT EXECUTIVE [address] [place] [address] Referral ID Status Reason Start Date Expiration Date V isits Requested Visits Authorized [id number] New Request 03/31/2022 04/25/2023 1 1 Reason Comments Post Op Visit Specialty Diagnoses / Procedures Referred By Bret chan Referred To Contact Diagnoses Hx of total knee arthroplasty, right Procedures XR KNEE RIGHT 3 VIEWS Pastor Bedoya MD [address] [place] [address] Referral ID Status Reason Start Date Expiration Date V isits Requested Visits Authorized [id number] New Request 07/02/2022 07/27/2023 1 1 Referral ID Status Reason Start Date Expiration Date V isits Requested Visits Authorized [id number] New Request 03/15/2023 04/08/2024 1 1 Reason Comments Retinal Injection Care Teams (unrecognized sec tion and content) Top Ironer Relationship Specialty Start Date End Date Augustine Metz, DO [address] [place] [facility] [place] [address] PCP - General Internal Medicine 01/24/17 Top Ironer Relationship Specialty Start Date End Date Augustine Mezt DO [address] [place] [facility] [place] [address] PCP - General Internal Medicine 01/24/17 Top Ironer Relationship Specialty Start Date End Date Augustine Metz DO [address] [place] [facility] [address] PCP - General Internal Medicine 01/24/17 Top Ironer Relationship Specialty Start Date End Date Augustine Metz, DO [address] [place] [facility] [phone] PCP - General Internal Medicine 01/24/17 Top Ironer Relationship Specialty Start Date End Date Augustine Metz, DO [address] [place] [facility] [address] PCP - General Internal Medicine 01/24/17 Top Ironer Relationship Specialty Start Date End Date Augustine Metz, DO [address] [place] [facility] [place] [phone] PCP - General Internal Medicine 01/24/17 Top Ironer Relationship Specialty Start Date End Date Augustine Metz DO [address] [place] [facility] [place] [phone] PCP - General Internal Medicine 01/24/17 Top Ironer Relationship Specialty Start Date End Date Augustine Metz DO [address] [place] [facility] [phone] PCP - General Internal Medicine 01/24/17 Top Ironer Relationship Specialty Start Date End Date Augustine Metz DO [address] [place] [facility] [phone] PCP - General Internal Medicine 01/24/17 Top Ironer Relationship Specialty Start Date End Date Augustine Metz MD [address] [place] [address] PCP - General Internal Medicine 06/02/23 Top Ironer Relationship Specialty Start Date End Date Augustine Metz MD [address] [place] [address] PCP - General Internal Medicine 06/02/23 Team [...] 2024 Team Status: Inactive Member Role Status Neil Metz DO Primary Care Provide r, Attending Provider Active Start: February 27, 2024 End: February 27, 2024 Team Status: Active Member Role Status Neil Metz DO Primary Care Provider Active Start: April 01, 2024 Osman Edmonds PA-C Attending Provider Active Start: April 01, 2024 Team Status: Active Member Role Status Neil Metz DO Primary Care Provider Active Start: April 02, 2024 Artemio Ch MD Attending Provider Active Star t: April 02, 2024 Team Status: Inactive Member Role Status Neil Metz DO Primary Care Provide r, Attending Provider Active Start: April 04, 2024 End: April 04, 2024 Scheduled Active and Recently Administ ered [...] HR 78) 0810 (Given - Provider: Kirsten Crawofrd RN) ceFAZolin (ANCEF) 2 g in dextrose [...] to the hypoglycemia management protocol on Ellucid: T-NL-Tbciwmkxusoe Management Protocol insulin regular (HumuLIN R;NovoLIN R) [...] 206 2u givenpeanut butter crackers at bedside) 08 (Given - Provider: Kirsten Crawford, RN)1127 (Given [...] Araseli Ron RN)1400 ([employer] - Provider: Araseil Ron RN)1450 ($$New Bag$$ - Provider: Pankaj Eric APRN-ACTUARIAL MANAGER)1606 (Paused - Provider: Chino Puga CRNA - [...] 2 g, Intravenous, Administer over 30 Minutes, BRISTLE MACHINE OPERATOR TO PROCEDURE, 1 dose, Starting on Tue03/15/22 at 0849, Until Discontinued, Other, Pre-operative antibiotic, For 15 Minutes, Pre-op/Pre-Proc 1440 (Given - Provider: Lambert Eric, DEQUAN-ACTUARIAL MANAGER) dextrose 10% IV solution 250 mL(Linked Group [...] less than 60 mg/ml. If unresponsive call INSTITUTIONAL ASSET MANAGER HYDROmorphone (DILAUDID) injection 0.5 mg 0.5 [...] Dominik Bedoya MD - Comment: given to [facility]) sodium phosphate w/sodium biphosphate (FLEETS) enema 1 enema 1 enema, Rectal, DAILY NEEDED, Starting on Tue03/15/22 at 1750, Until Tue03/16/22 at 1703, Refractory Constipation, use per package instructions, Post-op/Post-Proc vancomycin (VANCOCIN) injection NEEDED, Starting on Tue03/15/22 at 1443, Until Tue03/16/22 at 1703, Intra-op/Intra-Proc 1443 (Given - Provider: Dominik Bedoya MD - Comment: given to [facility]) zolpidem (AMBIEN) tablet 5 mg 5 [...] to the hypoglycemia management protocol on Ellucid: Y-ED-Uhicdummpsng Management Protocol
And dextrose 10% IV solution [...] less than 60 mg/ml. If unresponsive call INSTITUTIONAL ASSET MANAGER
And NOTIFY PHYSICIAN, Blood Glucose LESS THAN 70 mg/dl or greater than 400 mg/dl (CANCELED) Routine, CONTINUOUS, Starting on Tue03/15/22 at 1255, Until Specified
Who to Notify: MARKETING STRATEGY LEAD/Physician
For all Blood Glucose LESS THAN 70 mg/dl, or greater than 400 mg/dl notify MARKETING STRATEGY LEAD/Physician Goals (unrecognized section and content) Goals may [...] BE BASED ON THE PRIMARY CLINICAL RECORDS. [facility] [employer] [facility]. provides no warranty or guarantee of the accuracy or completeness of information in this document.
--- NOTE | 2024-04-13 07:30 | CA_ITS ---
Patient Name: EL TRUONG MR#: [id number] : 1945 Exam Date: 04/13/2024 Ordering Doctor: DR CLAYTON MURPHY M.D. ECHOCARDIOGRAM REPORT PROCEDURE: CA ECHO LIMITED INDICATIONS: Pericardial effusion COMPARISON: None. DESCRIPTION: Limited ECHOCARDIOGRAM Real-time transthoracic echocardiography with 2D and M-mode performed. QUALITY: Technical quality was good. LEFT VENTRICLE: Normal chamber size. Mild concentric left ventricular hypertrophy. LV EF: Global left ventricular systolic function is normal; visually estimated ejection fraction is 55 to 60%. No significant wall motion abnormalities. LEFT ATRIUM: Mild dilatation. RIGHT ATRIUM: Moderate dilatation. RIGHT VENTRICLE: Normal chamber size. Normal systolic function. TRICUSPID VALVE: Normal mobility and thickness. MITRAL VALVE: Normal mobility and thickness. Mild mitral annular calcification. AORTIC VALVE: Normal trileaflet appearance. No visible sclerosis. Normal leaflet mobility. AORTIC ROOT: Normal diameter and appearance. Ascending aorta is normal in size. PULMONIC VALVE: Normal thickness and mobility. PERICARDIUM: No evidence of pericardial effusion. IVC: Not well visualized. CONCLUSION: 1. Global left ventricular systolic function is normal; visually estimated ejection fraction is 55 to 60% 2. Normal right ventricular size and systolic function 3. Biatrial enlargement 4. No evidence of pericardial effusion A limited echocardiogram was performed Adult Echocardiography Procedure Report Left Ventricle LVEDD (3.7 - 5.6 cm): 4.90 cm LVESD (2.2 - 4.0 cm): 3.48 cm LVIVS thickness (0.6 - 1.2 cm): 1.21 cm LVPW thickness (0.5 - 1.0 cm): 1.20 cm LVOT Diameter 2.72 cm Left Atrium LA Volume Index (2D A2C): 36.24 ml/m2 Left Atrium Systolic Dimension: 4.71 cm Mitral Valve Right Ventricle Aorta AO Root Diam: 4.01 cm Ascending Ao Diam: 3.86 cm Aortic Valve Tricuspid Valve Pulmonic Valve Right Atrium Right Atrium Systolic Pressure: 66.10 ml, 66.10 ml Dictated by: Clayton Murphy M.D. on 04/13/2024 at 16:32 Approved by: Clayton Murphy M.D. on 04/13/2024 at 16:34
== END 2024-04-13 07:11 | disposition home or self-care (01) ==
LOC: CARD 07:10
PROVIDERS: PCP Internal Medicine; Visit Provider Internal Medicine Interventional Cardiology
DX: R07.89 Other chest pain (principal); I31.39 Other pericardial effusion (noninflammatory)
CPT/HCPCS: 93308

== ENCOUNTER 2024-04-18 07:34 | Outpatient (OUT) | payer MEDICARE, OTHER, SELFPAY ==
--- OUTSIDE RECORDS SUMMARY | 2024-04-18 07:38 | XMS_ITS | CCD ---
Author Organization [facility] Informat ion Partnership [facility] Care Team Providers Care Chapter Relations Administrator Name Role Phone GENE FAJARDO Admitting Unavailable GENE FAJARDO Attending Unavailable AUGUSTINE METZ Primary Care Unavailable RYAN CARDENAS Referring Unavailable Augustine Metz Primary Care Provider [phone] Augustine Metz DO Primary Care Provider [phone] Augustine Metz DO Primary Care Provider Carmen Kahn Unavailable AUGUSTINE METZ Primary Care Physician Augustine Metz DO Primary Care Provider [phone] Damari Rojas Unavailable Unavailable Alyssa, Mago Osman Delmsi Referring Unavaila natasha Bui, Dr. Macario Kent [...] DR PEREZ Primary Care Unavailable MISC, DR LYAMN Admitting Unavailable MISC, DR LYMAN Attending Unavailable [...] BALL, DR PEREZ Primary Care Unavailable FAWWAD, CARETR H Attending Unavailable FAWWAD, CARTER H Admitting [...] Care Unavailable Ball DOAugustine Primary Care Provider AZUL RACHEL Attending Unavailable [...] Referring Unavailable JOSE R DODD Attending Unavailable MURCEKAUGUSTINE Attending Unavailable JOSE R DODD Attending Unavailable MURCEKAUGUSTINE Attending Unavailable JOSE R DODD Attending Unavailable JOSE R DODD Attending Unavailable AUGUSTINE FREITAS Attending Unavailable CHRISTIN BOLTON Referring Unavailable RAJESH, LIONEL Referring Unavailable RAJESH, LIONEL Referring Unavailable MOUKARBEL, OLIVER Referring Unavailable MADISON PAUL Attending Unavailable RAJESH, LIONEL Referring Unavailable BRIGITTE PERRY Referring Unavailab le MOUKARBELOLIVER Referring Unavailable MOUKARBELOLIVER Referring Unavailable MOUKARBELOLIVER Referring Unavailable YAMILETMADISON DE LEON Referring Unavailable MOUKARBEL, OLIVER Attending Unavailable MAGGY MURPHY Attending Unavailable MOOLIVER FIGUEREDO Attending Unavailable RAJESH, LIONEL Referring Unavailable MAGGY MURPHY Attending Unavailable MADISON PAUL Referring Unavailable OLIVER CRANE Admitting Unavailable DORI RHODES Attending Unavailable RAJESH, LIONEL Referring Unavailable MOUKAELANA, OLIVER Referring Unavailable MOUKAELANA, OLIVER Admitting Unavailable GARTH, OLIVER Attending Unavailable Allergies Allergy Classification Reported Allergen(s) Allergy Type Date of Onset Reaction(s) Facility Iodine (and Iodine containting drugs) (1 source) Iodine Drug Allergy 04-04-20 Unknown Reaction [facility] Penicillins (antibiotic) (1 source) Penicillins Drug Allergy 04-04-20 [facility] Shellfish (2 sources) Shellfish Food Allergy 04-04-20 Unknown Reaction [facility] Sulfonamides (antibiotic) (1 source) Sulfonamides (Antibiotic) Drug Allergy 04-04-20 Swelling [facility] (16 sources) Iodine; Translations: [iodine] Drug Allergy 08-31-20 09 Unknown, Unknown Reaction [facility] Repository (7 sources) Penicillins; Translations: [PENICILLINS] Drug allergy (disorder) 08-01-19 63 Unknown Reaction, Hives [facility] Repository (7 sources) Sulfonamides (Antibiotic); Translations: [SULFA (SULFONAMIDE ANTIBIOTICS)] Drug allergy (disorder) 08-31-19 93 Swelling [facility] Repository (2 sources) Shellfish Containing Products; Translations: [Shellfish Containing Products] Food allergy (disorder) 08-31-20 09 [facility] Repository (16 sources) Iodine; Translations: [iodine] Drug Allergy 08-31-20 09 Swelling, Unknown (qualifier value), Anaphylaxis [facility] (18 sources) Penicillin G Drug Allergy 10-20-19 13 [facility] (14 sources) Shellfish Propensity to adverse reactions to drug 08-31-20 09 Swelling, Other [facility] (12 sources) Sulfonamides (Antibiotic) Propensity to adverse reactions to drug 10-20-19 13 Swelling [facility] (11 sources) Penicillins (Antibiotic) Drug allergy Unknown [facility] Other (15 sources) Shrimp product Propensity to adverse reactions 01-31-20 24 Unknown, Unknown Reaction [facility] (11 sources) Sulfonamides (Antibiotic) Drug allergy Unknown [facility] [employer] Other (5 sources) Penicillin; Translations: [penicillin] Drug Allergy Unknown (qualifier value) [facility] (1 source) Sulfonamides (Antibiotic); Translations: [sulfa drugs] Drug allergy Unknown (qualifier value) [facility] (1 source) No Alert Propensity to adverse reactions to drug 09-14-20 22 [facility] (1 source) Penicillin Drug Allergy 10-01-19 23 [facility] (1 source) Propensity to adverse reactions to drug 10-01-19 23 [facility] (1 source) Iodine Drug Allergy 08-30-20 13 [facility] Repository (1 source) Shellfish Drug allergy (disorder) 08-30-20 13 [facility] Repository (4 sources) sulfADIAZINE Drug Allergy Unknown [facility] [employer] Other (6 sources) Substance with sulfonamide structure and antibacterial mechanism of action (substance) Drug allergy 08-31-19 93 Rash, Swelling [facility] [employer] Other (1 source) sulfa drug; Translations: [sulfa drug] Propensity to adverse reactions to drug (disorder) [facility] Repository (2 sources) Penicillin V Drug Allergy 01-23-20 23 [facility] (2 sources) Penicillins Drug Allergy 08-01-19 63 Hives [facility] (2 sources) Other Allergy to substance 06-30-20 23 Other [facility] (2 sources) Shellfish-Derived Products Drug Allergy 10-20-19 13 Swelling [facility] (5 sources) Shellfish; Translations: [shellfish derived] Allergy to substance 01-31-20 24 Unknown Reaction [facility] (1 source) Iodine Drug Allergy 02-27-20 [facility] Repository (1 source) Penicillins Drug allergy (disorder) 02-27-20 [facility] Repository (1 source) Shrimp product Drug allergy (disorder) 02-27-20 [facility] Repository (1 source) Sulfonamides (Antibiotic) Drug allergy (disorder) 02-27-20 [facility] Repository Medications Current Medications Medication Drug Class(es) [...] 04/27/21 Status: Ordered take 2 tablets by [facility] every eight hours Tylenol 8 Hour [...] Aggregation Inhibitor, Nonsteroidal Anti-inflammatory Drug Start: 10-01-2022 [id number] Medication aspirin aspirin 300 mg 10/01/2022 Active [...] AREDS PO) Take by mouth. 0 Active Multivitamin-Ione als-Lutein (A Thru Z High Potency) tablet (5 sources) Start: 11-10-2021 take 1 tablet by mouth twice daily Multivitamin-Mine rals-Lutein (A Thru Z High Potency) tablet Active 1 TAB PO Twice daily November 10, 2021 1:00am Start: 02-15-2022 take 1 tablet by wendy th once daily Llemmtvkjgdg-Gvnrptal-Phsfxc (A Thru Z H igh Potency) tablet Active 1 TAB PO Daily November 10, 2021 1:00am omeprazole 20 mg delayed release oral capsule (20 sources) Proton Pump Inhibitor Start: 12-27-2017 take 20 mg by mouth once daily Omeprazole Active 20 MG PO Daily November 10, 2021 1:00am primidone 250 mg oral tablet (1 source) Anti-epileptic Agent Start: 08-21-2022 [id number] Medication omeprazole 20 mg capsule,delayed release omeprazole 20 mg capsule,delayed release 20 mg 08/21/2022 Active (Outside) therapeutic multivitamin-minera ls tablet (7 sources) Start: 03-15-2022 take 1 tablet by mouth at bedtime therapeutic multivitamin-kalsominer als tablet Take 1 tablet by mouth [...] XL docusate sodium 50 mg / sennosides, senior care 8.6 mg oral tablet (1 source) Start: [...] 31, 2024 3:31pm 7.5mg on Sat. 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; Translations: [CARE HOME CURRNT USE ANTICOAGULANTS] Onset: 3 Episodic Other aftercare (5 sources) Encounter for therapeutic drug level monitoring; Translations: [ENC THERAPEUTC DRUG LEVL MONITORING] Onset: 3 Episodic Other aftercare (1 source) FDC (current) 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; Translations: [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] Onset: 3 Episodic Other aftercare (1 source) Other termite technician (current) drug therapy; Translations: [OTH CARE HOME CURRENT DRUG THERAPY] Onset: 3 Episodic Other [...] Value Interpretation Reference Range Facility Office Visiton 04-12-2024 Follow-up visit [id number] Amina Goncalves 1945 M Date Provider Department Center 04/12/2024 [id number][facility] Family History Problem Relation Age of Onset Cancer Mother Heart attack Other Family Status - Relation Status Age at Mother Other Level of Service:03401 [place] OFFICE/OUTPATIENT ESTABLISHED MOD MDM 30 MIN [facility] Basophils Auto (Bld) [#/Vol] on 04-02-2024 Basophils (Bld) [#/Vol] 0.0 10 3/uL 0.0-0.1 [facility] Basophils/100 WBC Auto (Bld) on 04-02-2024 Basophils/100 WBC (Bld) 0.6 % 0.2-2.0 [facility] Eosinophils/100 WBC Auto (Bl d)on 04-02-2024 Eosinophils/100 WBC (Bld) 3.3 % 0.9-7.0 [facility] Erythrocyte distribution wid th Auto (RBC) [Ratio]on 04-02-2024 Erythrocyte distribution width (RBC) [Ratio] 13.9 % 11.0-15.0 [facility] Estimated glomerular filtrat ion rate (GFR) non- Americanon 04-02-2024 GFR/1.73 sq M.predicted among non-blacks MDRD (S/P/Bld) [Vol rate/Area] 49 mL/min/{1.73_m2} Low >=60 [facility] Globulin Calc (S) [Mass/Vol] on 04-02-2024 Globulin (S) [Mass/Vol] 3.0 g/dL [facility] Hematocrit Auto (Bld) [Volum e fraction]on 04-02-2024 Hematocrit (Bld) [Volume fraction] 32.6 % Low 42.0-54.0 [facility] Hemoglobin [Mass/volume] in Bloodon 04-02-2024 Hemoglobin (Bld) [Mass/Vol] 10.3 g/dL Low 14.0-18.0 [facility] Laboratory - Chemistry and C hemistry - challengeon 04-02-2024 Albumin [Mass/Vol] 2.8 g/dL Low 3.4-5.0 [facility] ALP [Catalytic activity/Vol] 76 U/L 46-116 [facility] ALT [Catalytic activity/Vol] 14 U/L Low 16-63 [facility] AST [Catalytic activity/Vol] 11 U/L Low 15-37 [facility] Bilirubin [Mass/Vol] 0.4 mg/dL 0.2-1.0 [facility] Calcium [Mass/Vol] 8.4 mg/dL Low 8.5-10.1 [facility] Chloride [Moles/Vol] 107 mmol/L 98-107 [facility] CO2 [Moles/Vol] 28.1 mmol/L 21.0-32.0 [facility] Creatinine [Mass/Vol] 1.40 mg/dL High 0.70-1.30 [facility] GFR/1.73 sq M.predicted MDRD (S/P/Bld) [Vol rate/Area] 59 mL/min/{1.73_m2} Low >=60 [facility] Glucose [Mass/Vol] 141 mg/dL High 74-106 [facility] Potassium [Moles/Vol] 4.3 mmol/L 3.5-5.1 [facility] Protein [Mass/Vol] 5.8 g/dL Low 6.4-8.2 [facility] Sodium [Moles/Vol] 142 mmol/L 136-145 [facility] Urea nitrogen [Mass/Vol] 16.0 mg/dL 7.0-18.0 [facility] Urea nitrogen/Creatinine [Mass ratio] 11.4 mg/mg [facility] Laboratory - Hematology and Cell countson 04-02-2024 Immature granulocytes/100 WBC (Bld) 0.2 % 0.0-0.5 [facility] Leukocytes [#/volume] correc iván for nucleated erythrocytes in Blood by Automated counon 04-02-2024 WBC corrected for nucl RBC Auto (Bld) [#/Vol] 5.2 10 3/uL 4.0-11.0 [facility] Lymphocytes Auto (Bld) [#/Vo l]on 04-02-2024 Lymphocytes (Bld) [#/Vol] 1.7 10 3/uL 1.2-3.8 [facility] Lymphocytes/100 WBC Auto (Bl d)on 04-02-2024 Lymphocytes/100 WBC (Bld) 32.6 % 20.5-60.0 [facility] MCH Auto (RBC) [Entitic mass ]on 04-02-2024 MCH (RBC) [Entitic mass] 27.8 pg 25.9-34.0 [facility] MCHC Auto (RBC) [Mass/Vol]on 04-02-2024 MCHC (RBC) [Mass/Vol] 31.6 g/dL 29.9-35.2 [facility] MCV Auto (RBC) [Entitic vol] on 04-02-2024 MCV (RBC) [Entitic vol] 87.9 fL 80.0-94.0 [facility] Monocytes Auto (Bld) [#/Vol] on 04-02-2024 Monocytes (Bld) [#/Vol] 0.7 10 3/uL 0.3-0.8 [facility] Monocytes/100 WBC Auto (Bld) on 04-02-2024 Monocytes/100 WBC (Bld) 12.9 % High 1.7-12.0 [facility] Neutrophils Auto (Bld) [#/Vo l]on 04-02-2024 Neutrophils (Bld) [#/Vol] 2.6 10 3/uL 1.4-6.5 [facility] Neutrophils/100 WBC Auto (Bl d)on 04-02-2024 Neutrophils/100 WBC (Bld) 50.4 % 43.0-75.0 [facility] No Panel Informationon 04-02 Eosinophils # (Auto) 0.2 10 3/uL 0.0-0.7 [facility] Immature Granulocyte # (Auto) 0.01 10 3/uL 0.00-0.03 [facility] Troponin I High Sensitivity 7.8 pg/mL 4.0-76.1 [facility] Comment on above: CUT-OFF POINTS HAVE BEEN ESTABLISHED BASED ON THE FOURTHIVERSAL DEFINITION OF MYOCARDIAL INFARCTION. THE UPPERREFERENCE LIMIT [...] (Bld) [Entitic vol] 12.5 fL 9.5-13.5 [facility] Platelets Auto (Bld) [#/Vol] on 04-02-2024 Platelets (Bld) [#/Vol] 139 10 3/uL Low 150-450 [facility] RBC Auto (Bld) [#/Vol]on RBC (Bld) [#/Vol] 3.71 10 6/uL Low 4.70-6.10 [facility] Serum or plasma albumin/glob ulin mass ratioon 04-02-2024 Albumin/Globulin [Mass ratio] 0.9 {ratio} [facility] Serum or plasma anion gap de terminationon 04-02-2024 Anion gap [Moles/Vol] 11.2 mmol/L [facility] Basophils Auto (Bld) [#/Vol] on 04-01-2024 Basophils (Bld) [#/Vol] 0.0 10 3/uL 0.0-0.1 [facility] Basophils/100 WBC Auto (Bld) on 04-01-2024 Basophils/100 WBC (Bld) 0.2 % 0.2-2.0 [facility] Eosinophils/100 WBC Auto (Bl d)on 04-01-2024 Eosinophils/100 WBC (Bld) 1.8 % 0.9-7.0 [facility] Erythrocyte distribution wid th Auto (RBC) [Ratio]on 04-01-2024 Erythrocyte distribution width (RBC) [Ratio] 13.7 % 11.0-15.0 [facility] Estimated glomerular filtrat ion rate (GFR) non- Americanon 04-01-2024 GFR/1.73 sq M.predicted among non-blacks MDRD (S/P/Bld) [Vol rate/Area] 43 mL/min/{1.73_m2} Low >=60 [facility] Globulin Calc (S) [Mass/Vol] on 04-01-2024 Globulin (S) [Mass/Vol] 3.3 g/dL [facility] Hematocrit Auto (Bld) [Volum e fraction]on 04-01-2024 Hematocrit (Bld) [Volume fraction] 35.6 % Low 42.0-54.0 [facility] Hemoglobin [Mass/volume] in Bloodon 04-01-2024 Hemoglobin (Bld) [Mass/Vol] 11.1 g/dL Low 14.0-18.0 [facility] INR in Platelet poor plasma by Coagulation assayon 04-01-2024 INR Coag (PPP) [Relative time] 0.98 {INR} [facility] Comment on above: DESIRED INR:2.0-3.0 CONDITIONS NOT LISTED BELOW2.5-3.5 FOR PROSTHETIC HEART VALVE REPLACEMENT2.5-3.5 RECURRENT THROMBOSIS Laboratory - Chemistry and C hemistry - challengeon 04-01-2024 Albumin [Mass/Vol] 3.3 g/dL Low 3.4-5.0 [facility] ALP [Catalytic activity/Vol] 91 U/L 46-116 [facility] ALT [Catalytic activity/Vol] 19 U/L 16-63 [facility] AST [Catalytic activity/Vol] 12 U/L Low 15-37 [facility] Bilirubin [Mass/Vol] 0.4 mg/dL 0.2-1.0 [facility] Calcium [Mass/Vol] 8.5 mg/dL 8.5-10.1 [facility] Chloride [Moles/Vol] 102 mmol/L 98-107 [facility] CO2 [Moles/Vol] 26.5 mmol/L 21.0-32.0 [facility] Creatinine [Mass/Vol] 1.56 mg/dL High 0.70-1.30 [facility] GFR/1.73 sq M.predicted MDRD (S/P/Bld) [Vol rate/Area] 52 mL/min/{1.73_m2} Low >=60 [facility] Glucose [Mass/Vol] 234 mg/dL High 74-106 [facility] Natriuretic peptide B (Bld) [Mass/Vol] 284.0 pg/mL <=1800.0 [facility] Potassium [Moles/Vol] 4.2 mmol/L 3.5-5.1 [facility] Protein [Mass/Vol] 6.6 g/dL 6.4-8.2 [facility] Sodium [Moles/Vol] 138 mmol/L 136-145 [facility] Urea nitrogen [Mass/Vol] 18.0 mg/dL 7.0-18.0 [facility] Urea nitrogen/Creatinine [Mass ratio] 11.5 mg/mg [facility] Laboratory - Hematology and Cell countson 04-01-2024 Immature granulocytes/100 WBC (Bld) 0.2 % 0.0-0.5 [facility] Leukocytes [#/volume] correc iván for nucleated erythrocytes in Blood by Automated counon 04-01-2024 WBC corrected for nucl RBC Auto (Bld) [#/Vol] 6.2 10 3/uL 4.0-11.0 [facility] Lymphocytes Auto (Bld) [#/Vo l]on 04-01-2024 Lymphocytes (Bld) [#/Vol] 1.3 10 3/uL 1.2-3.8 [facility] Lymphocytes/100 WBC Auto (Bl d)on 04-01-2024 Lymphocytes/100 WBC (Bld) 20.2 % Low 20.5-60.0 [facility] MCH Auto (RBC) [Entitic mass ]on 04-01-2024 MCH (RBC) [Entitic mass] 27.5 pg 25.9-34.0 [facility] MCHC Auto (RBC) [Mass/Vol]on 04-01-2024 MCHC (RBC) [Mass/Vol] 31.2 g/dL 29.9-35.2 [facility] MCV Auto (RBC) [Entitic vol] on 04-01-2024 MCV (RBC) [Entitic vol] 88.1 fL 80.0-94.0 [facility] Monocytes Auto (Bld) [#/Vol] on 04-01-2024 Monocytes (Bld) [#/Vol] 0.6 10 3/uL 0.3-0.8 [facility] Monocytes/100 WBC Auto (Bld) on 04-01-2024 Monocytes/100 WBC (Bld) 10.2 % 1.7-12.0 [facility] Neutrophils Auto (Bld) [#/Vo l]on 04-01-2024 Neutrophils (Bld) [#/Vol] 4.2 10 3/uL 1.4-6.5 [facility] Neutrophils/100 WBC Auto (Bl d)on 04-01-2024 Neutrophils/100 WBC (Bld) 67.4 % 43.0-75.0 [facility] No Panel Informationon 04-01 Troponin I High Sensitivity 6.7 pg/mL 4.0-76.1 [facility] Comment on above: CUT-OFF POINTS HAVE BEEN [...] Eosinophils # (Auto) 0.1 10 3/uL 0.0-0.7 [facility] Immature Granulocyte # (Auto) 0.01 10 3/uL 0.00-0.03 [facility] Platelet mean volume Auto (B ld) [Entitic vol]on 04-01-2024 Platelet mean volume (Bld) [Entitic vol] 11.8 fL 9.5-13.5 [facility] Platelets Auto (Bld) [#/Vol] on 04-01-2024 Platelets (Bld) [#/Vol] 152 10 3/uL 150-450 [facility] Prothrombin time (PT)on PT Coag (PPP) [Time] 10.4 s 9.0-11.6 [facility] RBC Auto (Bld) [#/Vol]on RBC (Bld) [#/Vol] 4.04 10 6/uL Low 4.70-6.10 [facility] Serum or plasma albumin/glob ulin mass ratioon 04-01-2024 Albumin/Globulin [Mass ratio] 1.0 {ratio} [facility] Serum or plasma anion gap de terminationon 04-01-2024 Anion gap [Moles/Vol] 13.7 mmol/L [facility] Office Visiton 03-22-2024 Follow-up visit [id number] Amina Goncalves james Blackman 1945 M Date Provider Department Center 03/22/2024 OLIVER RUELAS TIMO [facility] Family History Problem Relation Age of Onset Cancer Mother Heart attack Other Family Status - Relation Status Age at Mother Other Level of Service:85584 [place] OFFICE/OUTPATIENT ESTABLISHED LOW MDM 20 MIN [facility] HPon 03-16-2024 History Of Present I llness [...] a hospital admission) Transesophageal echo (JESSICA) 01/24/2024 [id number] Final Review of Systems Constitutional: Positive for [...] left atrial appendage closure per protocol. [facility] NURSNOTEon 03-16-2024 NURSNOTE Bedside swallow stud y passed. [facility] NURSNOTE RN educated pt on d/ c instructions. RN encouraged pt to voice any questions or concerns. Pt verbalizes no questions or concerns at this time. [facility] Glucose mean value [Mass/vol ume] in Blood Estimated from glycated hemoglobinon 02-27-2024 Average glucose Estimated from glycated hemoglobin (Bld) [Mass/Vol] 160 mg/dL [facility] Laboratory - Hematology and Cell countson 02-27-2024 HbA1c (Bld) [Mass fraction] 7.2 % High 4.5-6.2 [facility] Comment on above: ADA RECOMMENDED LIMI T 4.0 - 6.0ADA THERAPEUTIC TARGET < 7.0ACTION SUGGESTED> 7.0 Capillary blood glucose winifred urement by glucometer (mass/volume)Ordered By: Augustine Freitas on 02-24-2024 Glucose [Mass/Vol] 124 mg/dL [facility] Comment on above: Random Glucose Refer ence Range is dependent on time and content of last meal. Glucose of more than 200 mg/dL in a nonstressed, ambulatory subject supports the diagnosis of Diabetes Mellitus. Result Comment: [facility] Glucose Reference Range is dependent on time and content of last meal. Glucose of more than 200 mg/dL in a nonstressed, ambulatory subject supports the diagnosis of Diabetes Mellitus. Performed By: #### G LULS #### Point of Care testing , Glucose Poct Glucometerson 0 02-24-2024 Commemt1 Glu2: Cleaned Meter Normal [facility] Comment on above: Result Comment: PERF ORMED BY: [facility] [address] [place] [address] PATHOLOGIST GROUP SUPERVISOR YARD RICKY STRANGE M.D. Performed By: #### G LULS #### Point of Care testing , No Panel InformationOrdered By: Augustine Freitas on 02-24-2024 Bedside Glucose Comment Glu2: cleaned meter [facility] 36on 02-16-2024 36 There are pictures i n media [facility] ECG 12 lead ECGon 02-16-2024 ECG 12 lead ECG [facility] [place] [address] Electrocardiograph Report Signed Patient: Tito Goncalves MR#: [id number] 70 : 1945 Acct:[id number] Age/Sex: 79 / M ADM Date: 02/16/24 Loc: Room: Type: [facility] Attending Dr: Augustine Freitas DO Ordering Provider: [...] T wave abnormality Confirmed by Viviane Herman ([id number]) on 02/17/2024 12:43:51 PM Referred By: JAMAR Electronically Signed By:Viviane Herman Transcribed By: MUS Signed By Viviane Herman MD 4 1243 [facility] Office Visiton 02-09-2024 Follow-up visit [id number] Amina Goncalves 1945 M Date Provider Department Center 02/09/2024 [facility] Family History Problem Relation Age of Onset Cancer Mother Heart attack Other Family Status - Relation Status Age at Mother Other Level of Service:85482 [place] OFFICE/OUTPATIENT ESTABLISHED LOW MDM 20 MIN Reason for Visit and Comments: Atrial Fibrillation [80] - S/p LAAO with Amulet device [facility] 30on 01-29-2024 30 The patient is Moder [...] Goal: Maintains hematologic stability Outcome: Progressing [facility] BASIC METABOLIC PANELon 05-0 Anion gap [Moles/Vol] 11 mmol/L [facility] Comment on above: Performed By: #### L AB15 #### [facility] ([facility]) [address] [place] [address] Calcium [Mass/Vol] 8.0 mg/dL Low 8.6-10.3 [facility] Comment on above: Performed By: #### L [id number] #### [facility] ([facility]) [address] [place] [address] Chloride [Moles/Vol] 109 mmol/L High 98-107 [facility] Comment on above: Performed By: #### L [id number] #### [facility] ([facility]) [address] [place] [address] CO2 [Moles/Vol] 24 mmol/L Normal 21- [facility] Comment on above: Performed By: #### L [id number] #### [facility] ([facility]) [address] [place] [address] Creatinine [Mass/Vol] 1.17 mg/dL Normal 0.70-1.30 [facility] Comment on above: Performed By: #### L [id number] #### [facility] ([facility]) [address] [place] [address] GLOMERULAR FILTRATION RATE ML/MIN/1.73 SQ M.PREDICTED 63.8 mL/min/1.73m*2 Normal >60.0 [facility] Comment on above: Result Comment: [facility]???s estimated glomerular filtration rate (eGFR) will no [...] individuals. Performed By: #### L [id number] #### [facility] ([facility]) [address] [place] [address] Glucose [Mass/Vol] 125 mg/dL High 70-100 [facility] Comment on above: Performed By: #### L [id number] #### [facility] ([facility]) [address] [place] [address] Potassium [Moles/Vol] 3.6 mmol/L Normal 3.5-5.1 [facility] Comment on above: Performed By: #### L [id number] #### [facility] ([facility]) [address] [place] [address] Sodium [Moles/Vol] 140 mmol/L Normal 136-145 [facility] Comment on above: Performed By: #### L [id number] #### [facility] ([facility]) [address] [place] [address] Urea nitrogen [Mass/Vol] 22 mg/dL Normal 7-25 [facility] Comment on above: Performed By: #### L [id number] #### [facility] ([facility]) [address] [place] [address] UREA NITROGEN/CREATININE (MASS RATIO) IN SER/PLAS 18.8 Normal [facility] Comment on above: Performed By: #### L [id number] #### [facility] ([facility]) [address] [place] [address] CBCon 01-29-2024 Erythrocyte distribution width (RBC) [Ratio] 14.6 % Normal 11.5-15.0 [facility] Comment on above: Performed By: #### L [id number] #### [facility] ([facility]) [address] [place] [address] ERYTHROCYTE MEAN CORPUSCULAR HEMOGLOBIN CONCENTRATION (G/DL) BY AUTOMATED 32.8 g/dL Normal 32.0-35.0 [facility] Comment on above: Performed By: #### L [id number] #### [facility] ([facility]) [address] [place] [address] Hematocrit (Bld) [Volume fraction] 30.5 % Low 39.0-55.0 [facility] Comment on above: Performed By: #### L [id number] #### [facility] ([facility]) [address] [place] [address] Hemoglobin (Bld) [Mass/Vol] 10.0 g/dL Low 13.0-17.0 [facility] Comment on above: Performed By: #### L [id number] #### [facility] ([facility]) [address] [place] [address] MCH (RBC) [Entitic mass] 29.1 pg Normal 27.0-33.0 [facility] Comment on above: Performed By: #### L [id number] #### [facility] ([facility]) [address] [place] [address] MCV (RBC) [Entitic vol] 88.7 fL Normal 82.0-98.0 [facility] Comment on above: Performed By: #### L [id number] #### [facility] ([facility]) [address] [place] [address] PLATELETS (10*3/UL) IN BLOOD AUTOMATED COUNT 151 10*3/uL Normal 150-400 [facility] Comment on above: Performed By: #### L [id number] #### [facility] ([facility]) [address] [place] [address] RBC (Bld) [#/Vol] 3.44 10*6/uL Low 4.20-5.70 [facility] Comment on above: Performed By: #### L [id number] #### [facility] ([facility]) [address] [place] [address] WBC (Bld) [#/Vol] 6.43 10*3/uL Normal 4.00-10.60 [facility] Comment on above: Performed By: #### L [id number] #### [facility] ([facility]) [address] [place] [address] HEMOGLOBIN A1Con 01-29-2024 Glucose [Mass/Vol] 163 mg/dL Normal [facility] Comment on above: Performed By: #### L [id number] #### [facility] ([facility]) [address] [place] [address] HbA1c (Bld) [Mass fraction] 7.3 % High 4.0-6.0 [facility] Comment on above: Performed By: #### L [id number] #### [facility] ([facility]) [address] [place] [address] POCT GLUCOSE METER UNSOLICIT ED RESULTSon 01-29-2024 Glucose [Mass/Vol] 218 mg/dL High 70-105 [facility] Comment on above: Order Comment: Waive d Testing in the ED is performed under the ED CLIA certificate #[id number]. Result Comment: [email or web address] Performed By: #### L [id number] ####[facility] ([facility])[address] [place] [address] Glucose [Mass/Vol] 138 mg/dL High 70-105 [facility] Comment on above: Order Comment: Waive d Testing in the ED is performed under the ED CLIA certificate #[id number]. Result Comment: [email or web address] Performed By: #### L [id number] #### [facility] ([facility]) [address] [place] [address] 30on 01-28-2024 30 The patient is Moder [...] and behaviors that affect risk of falls [place] fall precautions as indicated by assessment Problem: [...] Goal: Maintains hematologic stability Outcome: Progressing Normal [facility] BASIC METABOLIC PANELon 05-0 Anion gap [Moles/Vol] 12 mmol/L Normal - [facility] Comment on above: Performed By: #### L [id number] ####[facility] ([facility])[address] [place] [address] Calcium [Mass/Vol] 7.7 mg/dL Low 8.6-10.3 [facility] Comment on above: Performed By: #### L [id number] ####[facility] ([facility])[address] [place] [address] Chloride [Moles/Vol] 108 mmol/L High 98-107 [facility] Comment on above: Performed By: #### L [id number] ####[facility] [place] [address] CO2 [Moles/Vol] 21 mmol/L Normal 21-31 [facility] Comment on above: Performed By: #### L [id number] ####[facility] ([facility])[address] [place] [address] Creatinine [Mass/Vol] 1.16 mg/dL Normal 0.70-1.30 [facility] Comment on above: Performed By: #### L [id number] ####[facility] ([facility])[address] [place] [address] GLOMERULAR FILTRATION RATE ML/MIN/1.73 SQ M.PREDICTED 64.5 mL/min/1.73m*2 Normal >60.0 [facility] Comment on above: Result Comment: [facility]???s estimated glomerular filtration rate (eGFR) will no [...] of individuals. Performed By: #### L [id number] ####[facility] [place] [address] Glucose [Mass/Vol] 143 mg/dL High 70-100 [facility] Comment on above: Performed By: #### L [id number] ####[facility] [place] [address] Potassium [Moles/Vol] 3.3 mmol/L Low 3.5-5.1 [facility] Comment on above: Performed By: #### L [id number] ####[facility] [place] [address] Sodium [Moles/Vol] 138 mmol/L Normal 136-145 [facility] Comment on above: Performed By: #### L [id number] ####[facility] [place] [address] Urea nitrogen [Mass/Vol] 27 mg/dL High 7-25 [facility] Comment on above: Performed By: #### L [id number] ####[facility] ([facility])[address] [place] [address] UREA NITROGEN/CREATININE (MASS RATIO) IN SER/PLAS 23.3 Normal [facility] Comment on above: Performed By: #### L [id number] ####[facility] ([facility])[address] [place] [address] CBCon 01-28-2024 Erythrocyte distribution width (RBC) [Ratio] 14.4 % Normal 11.5-15.0 [facility] Comment on above: Performed By: #### L [id number] #### [facility] [address] [place] [address] ERYTHROCYTE MEAN CORPUSCULAR HEMOGLOBIN CONCENTRATION (G/DL) BY AUTOMATED 32.8 g/dL Normal 32.0-35.0 [facility] Comment on above: Performed By: #### L [id number] #### [facility] [address] [place] [address] Hematocrit (Bld) [Volume fraction] 31.4 % Low 39.0-55.0 [facility] Comment on above: Performed By: #### L [id number] #### [facility] [address] [place] [address] Hemoglobin (Bld) [Mass/Vol] 10.3 g/dL Low 13.0-17.0 [facility] Comment on above: Performed By: #### L [id number] #### [facility] ([facility]) [address] [place] [address] MCH (RBC) [Entitic mass] 29.0 pg Normal 27.0-33.0 [facility] Comment on above: Performed By: #### L [id number] #### [facility] ([facility]) [address] [address] MCV (RBC) [Entitic vol] 88.5 fL Normal 82.0-98.0 [facility] Comment on above: Performed By: #### L [id number] #### [facility] ([facility]) [address] [place] [address] PLATELETS (10*3/UL) IN BLOOD AUTOMATED COUNT 134 10*3/uL Low 150-400 [facility] Comment on above: Performed By: #### L [id number] #### [facility] ([facility]) [address] [place] [address] RBC (Bld) [#/Vol] 3.55 10*6/uL Low 4.20-5.70 [facility] Comment on above: Performed By: #### L [id number] #### [facility] ([facility]) [address] [address] WBC (Bld) [#/Vol] 6.52 10*3/uL Normal 4.00-10.60 [facility] Comment on above: Performed By: #### L [id number] #### [facility] ([facility]) [address] [place] [address] MAGNESIUMon 01-28-2024 Magnesium [Mass/Vol] 1.8 mg/dL Low 1.9-2.7 [facility] Comment on above: Performed By: #### L [id number] ####[facility] ([facility])[address] [place] [address] PHOSPHORUSon 01-28-2024 Magnesium [Mass/Vol] 2.5 mg/dL Normal 2.5-5.0 [facility] Comment on above: Performed By: #### L [id number] ####[facility] ([facility])[address] [place] [address] POCT GLUCOSE METER UNSOLICIT ED RESULTSon 01-28-2024 Glucose [Mass/Vol] 258 mg/dL High 70-105 [facility] Comment on above: Order Comment: Waive d Testing in the ED is performed under the ED CLIA certificate #[id number]. Result Comment: [email or web address] Performed By: #### L [id number] #### [facility] ([facility]) [address] [place] [address] Glucose [Mass/Vol] 133 mg/dL High 70-105 [facility] Comment on above: Order Comment: Waive d Testing in the ED is performed under the ED CLIA certificate #[id number]. Result Comment: [email or web address] Performed By: #### L [id number] ####[facility] ([facility])[address] [place] [address] Glucose [Mass/Vol] 260 mg/dL High 70-105 [facility] Comment on above: Order Comment: Waive d Testing in the ED is performed under the ED CLIA certificate #[id number]. Result Comment: [email or web address] Performed By: #### L [id number] ####[facility] ([facility])[address] [place] [address] Glucose [Mass/Vol] 140 mg/dL High 70-105 [facility] Comment on above: Order Comment: Waive d Testing in the ED is performed under the ED CLIA certificate #[id number]. Result Comment: [email or web address] Performed By: #### L [id number] #### [facility] ([facility]) [address] [place] [address] 30on 01-27-2024 30 Daily Case Managemen t Update Multidisciplinary rounds have been completed. 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 Pericardial drain remains in place. On amiodarone gtt. Plan to discharge home when medically cleared. Diet: Dietary Orders (From admission, onward) Start Ordered 01/26/24 1247 Special Kitchen Request Once Comments: Chicken noodle soup Fruit cup Diet coke Tilapia (plain) Ute cake 01/26/24 1246 01/26/24 1246 Regular Diet [...] Answer: eval and treat 01/26/24 1241 Normal [facility] 30 The patient is Moder ately Stable [...] medication and electrolyte replacement as ordered Normal [facility] BASIC METABOLIC PANELon 05-0 Anion gap [Moles/Vol] 11 mmol/L Normal - [facility] Comment on above: Performed By: #### L [id number] ####[facility] ([facility])[address] [place] [address] Calcium [Mass/Vol] 7.9 mg/dL Low 8.6-10.3 [facility] Comment on above: Performed By: #### L [id number] ####[facility] ([facility])[address] [place] [address] Chloride [Moles/Vol] 108 mmol/L High 98-107 [facility] Comment on above: Performed By: #### L [id number] ####[facility] ([facility]ER)[address] [place] [address] CO2 [Moles/Vol] 22 mmol/L Normal 21-31 [facility] Comment on above: Performed By: #### L [id number] ####[facility] (BEAKER)[address] [place] [address] Creatinine [Mass/Vol] 1.31 mg/dL High 0.70-1.30 [facility] Comment on above: Performed By: #### L [id number] ####[facility] ([facility])[address] [place] [address] GLOMERULAR FILTRATION RATE ML/MIN/1.73 SQ M.PREDICTED 55.7 mL/min/1.73m*2 Low >60.0 [facility] Comment on above: Result Comment: [facility]???s estimated glomerular filtration rate (eGFR) will no [...] of individuals. Performed By: #### L [id number] ####[facility] ([facility]ER)[address] [place] [address] Glucose [Mass/Vol] 154 mg/dL High 70-100 [facility] Comment on above: Performed By: #### L [id number] ####[facility] ([facility])[address] [place] [address] Potassium [Moles/Vol] 3.6 mmol/L Normal 3.5-5.1 [facility] Comment on above: Performed By: #### L [id number] ####[facility] ([facility])[address] [place] [address] Sodium [Moles/Vol] 137 mmol/L Normal 136-145 [facility] Comment on above: Performed By: #### L [id number] ####[facility] ([facility])[address] [place] [address] Urea nitrogen [Mass/Vol] 30 mg/dL High 7-25 [facility] Comment on above: Performed By: #### L [id number] ####[facility] ([facility])[address] [place] [address] UREA NITROGEN/CREATININE (MASS RATIO) IN SER/PLAS 22.9 Normal [facility] Comment on above: Performed By: #### L [id number] ####[facility] ([facility])[address] [place] [address] CBCon 01-27-2024 Erythrocyte distribution width (RBC) [Ratio] 14.5 % Normal 11.5-15.0 [facility] Comment on above: Performed By: #### L [id number] ####[facility] ([facility])[address] [place] [address] ERYTHROCYTE MEAN CORPUSCULAR HEMOGLOBIN CONCENTRATION (G/DL) BY AUTOMATED 32.2 g/dL Normal 32.0-35.0 [facility] Comment on above: Performed By: #### L [id number] ####[facility] ([facility])[address] [place] [address] Hematocrit (Bld) [Volume fraction] 31.4 % Low 39.0-55.0 [facility] Comment on above: Performed By: #### L [id number] ####[facility] [place] [address] Hemoglobin (Bld) [Mass/Vol] 10.1 g/dL Low 13.0-17.0 [facility] Comment on above: Performed By: #### L [id number] ####[facility] [address] MCH (RBC) [Entitic mass] 29.0 pg Normal 27.0-33.0 [facility] Comment on above: Performed By: #### L [id number] ####[facility] ([facility])[address] [place] [address] MCV (RBC) [Entitic vol] 90.2 fL Normal 82.0-98.0 [facility] Comment on above: Performed By: #### L [id number] ####[facility] ([facility])[address] [place] [address] PLATELETS (10*3/UL) IN BLOOD AUTOMATED COUNT 134 10*3/uL Low 150-400 [facility] Comment on above: Performed By: #### L [id number] ####[facility] ([facility])[address] [place] [address] RBC (Bld) [#/Vol] 3.48 10*6/uL Low 4.20-5.70 [facility] Comment on above: Performed By: #### L [id number] ####[facility] [place] [address] WBC (Bld) [#/Vol] 8.70 10*3/uL Normal 4.00-10.60 [facility] Comment on above: Performed By: #### L [id number] ####[facility] ([facility])[address] [place] [address] MAGNESIUMon 01-27-2024 Magnesium [Mass/Vol] 2.0 mg/dL Normal 1.9-2.7 [facility] Comment on above: Performed By: #### L [id number] #### [facility] ([facility]ER) [address] [place] [address] NURSNOTEon 01-27-2024 NURSNOTE Patient Name: Tito Goncalves [...] voiced no concerns at this time. The curriculum writer urged the primary RN to call the rapid team if any concerns arise overnight. Vic Euceda, ROMAINE Rapid Response Team Nurse [phone] 01/27/2024 9:04 PM Normal [facility] NURSNOTE Patient Name: Tito Goncalves : 1945 Primary Care Physician: Augustine Metz MD Admission Date: 01/24/2024 RAPID RESPONSE TEAM ICU TRANSFER FOLLOW-UP NOTE SUBJECTIVE / OBJECTIVE: Follow-up for previous transfer out of the ICU notification for 01/26/2024 at 1627. ASSESSMENT / INTERVENTIONS: Recent Vital Signs: Vitals: 01/26/24 1940 01/26/240 01/27/24 0420 01/27/24 0800 BP: 99/62 107/59 [...] time. Vital signs are stable via cardiac exercise physiologist and daily lab values are unremarkable. If emergent concerns arise, please call rapid response team. Dominga Millard RN Rapid Response Team Nurse [phone] 01/27/2024 12:15 PM Normal [facility] PHOSPHORUSon 01-27-2024 Magnesium [Mass/Vol] 2.2 mg/dL Low 2.5-5.0 [facility] Comment on above: Performed By: #### L [id number] #### [facility] ([facility]) [address] [facility] [place] [address] POCT GLUCOSE METER UNSOLICIT ED RESULTSon 01-27-2024 Glucose [Mass/Vol] 206 mg/dL High 70-105 [facility] Comment on above: Order Comment: Waive d Testing in the ED is performed under the ED CLIA certificate #[id number]. Result Comment: [email or web address] Performed By: #### L [id number] #### [facility] ([facility]) [address] [facility] [place] [address] Glucose [Mass/Vol] 187 mg/dL High 70-105 [facility] Comment on above: Order Comment: Waive d Testing in the ED is performed under the ED CLIA certificate #[id number]. Result Comment: [email or web address] Performed By: #### L [id number] #### [facility] ([facility]) [address] [facility] [place] [address] Glucose [Mass/Vol] 223 mg/dL High 70-105 [facility] Comment on above: Order Comment: Waive d Testing in the ED is performed under the ED CLIA certificate #[id number]. Result Comment: [email or web address] Performed By: #### L [id number] #### [facility] ([facility]) [address] [facility] [place] [address] Glucose [Mass/Vol] 160 mg/dL High 70-105 [facility] Comment on above: Order Comment: Waive d Testing in the ED is performed under the ED CLIA certificate #[id number]. Result Comment: [email or web address] Performed By: #### L [id number] #### [facility] (BEAKER) [address] [place] [address] 30on 01-26-2024 30 Daily Case Managemen t Update Multidisciplinary rounds have been completed. Barriers to Discharge: /- pericardial drain in place, slight EDEN, wants drain output to be less than 25 cc before it is pulled. ECHO today. pt ot ordered. from home wants to return. CB Diet: Dietary Orders (From admission, onward) Start Ordered 01/26/24 1247 Special Kitchen Request Once Comments: Chicken noodle soup Fruit cup Diet coke Tilapia (plain) Ute cake 01/26/24 1246 01/26/24 1246 Regular Diet [...] Answer: eval and treat 01/26/24 1241 Normal [facility] BASIC METABOLIC PANELon 05 Anion gap [Moles/Vol] 12 mmol/L Normal 7-20 [facility] Comment on above: Performed By: #### L [id number] #### [facility] ([facility]ER) [address] [place] [address] Calcium [Mass/Vol] 7.6 mg/dL Low 8.6-10.3 [facility] Comment on above: Performed By: #### L [id number] #### [facility] (BEAKER) [address] [place] [address] Chloride [Moles/Vol] 109 mmol/L High 98-107 [facility] Comment on above: Performed By: #### L [id number] #### [facility] ([facility]) [address] [place] [address] CO2 [Moles/Vol] 21 mmol/L Normal 21-31 [facility] Comment on above: Performed By: #### L [id number] #### [facility] ([facility]) [address] [place] [address] Creatinine [Mass/Vol] 1.62 mg/dL High 0.70-1.30 [facility] Comment on above: Performed By: #### L [id number] #### [facility] ([facility]) [address] [place] [address] GLOMERULAR FILTRATION RATE ML/MIN/1.73 SQ M.PREDICTED 43.2 mL/min/1.73m*2 Low >60.0 [facility] Comment on above: Result Comment: [facility]???s estimated glomerular filtration rate (eGFR) will no [...] group of individuals. Performed By: #### L [id number] #### [facility] ([facility]) [address] [place] [address] Glucose [Mass/Vol] 152 mg/dL High 70-100 [facility] Comment on above: Performed By: #### L [id number] #### [facility] ([facility]) [address] [place] [address] Potassium [Moles/Vol] 3.9 mmol/L Normal 3.5-5.1 [facility] Comment on above: Performed By: #### L [id number] #### [facility] (BEAKER) [address] [place] [address] Sodium [Moles/Vol] 138 mmol/L Normal 136-145 [facility] Comment on above: Performed By: #### L [id number] #### [facility] (BEAKER) [address] [place] [address] Urea nitrogen [Mass/Vol] 37 mg/dL High 7-25 [facility] Comment on above: Performed By: #### L [id number] #### [facility] (BEAKER) [address] [place] [address] UREA NITROGEN/CREATININE (MASS RATIO) IN SER/PLAS 22.8 Normal [facility] Comment on above: Performed By: #### L [id number] #### [facility] [address] [place] [address] CBCon 01-26-2024 Erythrocyte distribution width (RBC) [Ratio] 14.5 % Normal 11.5-15.0 [facility] Comment on above: Performed By: #### L [id number] #### [facility] [address] [place] [address] ERYTHROCYTE MEAN CORPUSCULAR HEMOGLOBIN CONCENTRATION (G/DL) BY AUTOMATED 31.9 g/dL Low 32.0-35.0 [facility] Comment on above: Performed By: #### L [id number] #### [facility] (BEAKER) [address] [place] [address] Hematocrit (Bld) [Volume fraction] 33.2 % Low 39.0-55.0 [facility] Comment on above: Performed By: #### L [id number] #### [facility] (BEAKER) [address] [place] [address] Hemoglobin (Bld) [Mass/Vol] 10.6 g/dL Low 13.0-17.0 [facility] Comment on above: Performed By: #### L [id number] #### [facility] (BEAKER) [address] [place] [address] MCH (RBC) [Entitic mass] 29.1 pg Normal 27.0-33.0 [facility] Comment on above: Performed By: #### L [id number] #### [facility] ([facility]) [address] [place] [address] MCV (RBC) [Entitic vol] 91.2 fL Normal 82.0-98.0 [facility] Comment on above: Performed By: #### L [id number] #### [facility] ([facility]) [address] [place] [address] PLATELETS (10*3/UL) IN BLOOD AUTOMATED COUNT 123 10*3/uL Low 150-400 [facility] Comment on above: Performed By: #### L [id number] #### [facility] ([facility]) [address] [place] [address] RBC (Bld) [#/Vol] 3.64 10*6/uL Low 4.20-5.70 [facility] Comment on above: Performed By: #### L [id number] #### [facility] ([facility]) [address] [place] [address] WBC (Bld) [#/Vol] 12.08 10*3/uL High 4.00-10.60 [facility] Comment on above: Performed By: #### L [id number] #### [facility] ([facility]) [address] [address] MAGNESIUMon 01-26-2024 Magnesium [Mass/Vol] 1.9 mg/dL Normal 1.9-2.7 [facility] Comment on above: Performed By: #### L [id number] #### [facility] ([facility]) [address] [place] [address] NURSNOTEon 01-26-2024 NURSNOTE Patient Name: Tito Goncalves : 1945 Primary Care Physician: Augustine Metz MD Admission Date: 01/24/2024 RAPID RESPONSE TEAM ICU TRANSFER FOLLOW-UP NOTE SUBJECTIVE / OBJECTIVE: Follow-up for previous transfer out of the ICU notification for 01/25 at 14:27. ASSESSMENT / INTERVENTIONS: Recent Vital Signs: Vitals: 01/26/24 1930 01/26/24193401/26/24193901/26/242049 BP: 99/62 Pulse: (!) 128 84 82 Resp: Temp: TempSrc: SpO2: 93% 93% 94% 92% [...] time, but encouraged to reach out to EMBEDDED CASE MANAGER if anything changes overnight or with any further concerns. Suleman Ortiz RN Rapid Response Team Nurse [phone] 01/26/2024 10:20 PM Normal [facility] PHOSPHORUSon 01-26-2024 Magnesium [Mass/Vol] 3.7 mg/dL Normal 2.5-5.0 [facility] Comment on above: Performed By: #### L [id number] ####[facility] (Stand In)[address] [place] [address] POCT GLUCOSE METER UNSOLICIT ED RESULTSon 01-26-2024 Glucose [Mass/Vol] 163 mg/dL High 70-105 [facility] Comment on above: Order Comment: Waive d Testing in the ED is performed under the ED CLIA certificate #[id number]. Result Comment: [email or web address] Performed By: #### L [id number] #### [facility] ([employer]) [address] [place] [address] Glucose [Mass/Vol] 206 mg/dL High 70-105 [facility] Comment on above: Order Comment: Waive d Testing in the ED is performed under the ED CLIA certificate #[id number]. Result Comment: [email or web address] [email or web address] Performed By: #### L [id number] ####[facility] ([employer])[address] [place] [address] Glucose [Mass/Vol] 155 mg/dL High 70-105 [facility] Comment on above: Order Comment: Waive d Testing in the ED is performed under the ED CLIA certificate #[id number]. Result Comment: [email or web address] Performed By: #### L [id number] #### [facility] ([facility]) [address] [place] [address] Glucose [Mass/Vol] 150 mg/dL High 70-105 [facility] Comment on above: Order Comment: Waive d Testing in the ED is performed under the ED CLIA certificate #[id number]. Result Comment: tful [email or web address] Performed By: #### L [id number] #### [facility] ([facility]) [address] [place] [address] 30on 01-25-2024 30 Daily Case Managemen t Update Multidisciplinary rounds have been completed. Barriers to Discharge: 01/24- patient here for planned atrial appendage closure. Per morning meeting the patient fell this morning, presumably from hypotension (BP in 60s/70s). Gave patient fluids to rescusitate but was unsuccessful. Patient was started on levophed and brought to MICU. ECHO showed pericardia effusion, went to label remover this morning for pericardiocentesis. Patient has pericardial drain. May need pt ot given age but would anticipate home maybe with [facility]. CB Diet: Dietary Orders (From admission, onward) Start Ordered 01/24/24 1051 Regular Diet Diabetic Male (carb 60g/meal) Diet effective now Question Answer Comment Room Service? Yes Carbohydrate restriction: Diabetic Male (carb 60g/meal) 01/24/24 1050 Physician Expected Discharge Date: 01/25/2024 Discharge Delays: PT Six Click Score: 21 OT Six Click Score: PT Recommendations: OT Recommendations: New Consults: Normal [facility] BASIC METABOLIC PANELon 05-0 Anion gap [Moles/Vol] 18 mmol/L Normal 7-20 [facility] Comment on above: Performed By: #### L [id number] ####[facility] ([facility])[address] [place] [address] Calcium [Mass/Vol] 7.8 mg/dL Low 8.6-10.3 [facility] Comment on above: Performed By: #### L [id number] ####[facility] ([facility])[address] [place] [address] Chloride [Moles/Vol] 104 mmol/L Normal 98-107 [facility] Comment on above: Performed By: #### L [id number] ####[facility] ([facility])[address] [place] [address] CO2 [Moles/Vol] 20 mmol/L Low 21-31 [facility] Comment on above: Performed By: #### L [id number] ####[facility] ([facility])[address] [place] [address] Creatinine [Mass/Vol] 1.99 mg/dL High 0.70-1.30 [facility] Comment on above: Performed By: #### L [id number] ####[facility] ([facility])[address] [place] [address] GLOMERULAR FILTRATION RATE ML/MIN/1.73 SQ M.PREDICTED 33.7 mL/min/1.73m*2 Low >60.0 [facility] Comment on above: Result Comment: [facility]???s estimated glomerular filtration rate (eGFR) will no [...] of individuals. Performed By: #### L [id number] ####[facility] ([facility] [place] [address] Glucose [Mass/Vol] 257 mg/dL High 70-100 [facility] Comment on above: Performed By: #### L [id number] ####[facility] ([facility] [place] [address] Potassium [Moles/Vol] 5.0 mmol/L Normal 3.5-5.1 [facility] Comment on above: Performed By: #### L [id number] ####[facility] ([facility])[address] [place] [address] Sodium [Moles/Vol] 137 mmol/L Normal 136-145 [facility] Comment on above: Performed By: #### L [id number] ####[facility] ([facility])[address] [place] [address] Urea nitrogen [Mass/Vol] 30 mg/dL High 7-25 [facility] Comment on above: Performed By: #### L [id number] ####[facility] ([facility])[address] [place] [address] UREA NITROGEN/CREATININE (MASS RATIO) IN SER/PLAS 15.1 Normal [facility] Comment on above: Performed By: #### L [id number] ####[facility] ([facility])[address] [place] [address] BLOOD CULTUREon 01-25-2024 Bacteria identified Cx Nom (Bld) No growth at 5 days Normal [facility] Comment on above: Order Comment: Waive d Testing in the ED is performed under the ED CLIA certificate #[id number]. Performed By: #### L [id number] #### [facility] ([facility]) [address] [place] [address] Bacteria identified Cx Nom (Bld) No growth at 5 days Normal [facility] Comment on above: Performed By: #### L [id number] #### [facility] ([facility]) [address] [place] [address] CBCon 01-25-2024 Erythrocyte distribution width (RBC) [Ratio] 14.1 % Normal 11.5-15.0 [facility] Comment on above: Performed By: #### L [id number] #### [facility] ([facility]) [address] [place] [address] ERYTHROCYTE MEAN CORPUSCULAR HEMOGLOBIN CONCENTRATION (G/DL) BY AUTOMATED 31.9 g/dL Low 32.0-35.0 [facility] Comment on above: Performed By: #### L [id number] #### [facility] (BEAKER) [address] [place] [address] Hematocrit (Bld) [Volume fraction] 34.5 % Low 39.0-55.0 [facility] Comment on above: Performed By: #### L [id number] #### [facility] [address] [place] [address] Hemoglobin (Bld) [Mass/Vol] 11.0 g/dL Low 13.0-17.0 [facility] Comment on above: Performed By: #### L [id number] #### [facility] [address] [place] [address] MCH (RBC) [Entitic mass] 28.9 pg Normal 27.0-33.0 [facility] Comment on above: Performed By: #### L [id number] #### [facility] [address] [place] [address] MCV (RBC) [Entitic vol] 90.6 fL Normal 82.0-98.0 [facility] Comment on above: Performed By: #### L [id number] #### [facility] ([facility]) [address] [place] [address] PLATELETS (10*3/UL) IN BLOOD AUTOMATED COUNT 191 10*3/uL Normal 150-400 [facility] Comment on above: Performed By: #### L [id number] #### [facility] ([facility]) [address] [place] [address] RBC (Bld) [#/Vol] 3.81 10*6/uL Low 4.20-5.70 [facility] Comment on above: Performed By: #### L [id number] #### [facility] [address] [place] [address] WBC (Bld) [#/Vol] 13.57 10*3/uL High 4.00-10.60 [facility] Comment on above: Performed By: #### L [id number] #### [facility] [address] [place] [address] CONSULTon 01-25-2024 CONSULT ------ -- Attestation signed [...] Goncalves Age - 79 y.o. - 1945 Date of Admission - 01/24/2024 10:46 AM [...] complication and patient was admitted to [facility] for over night monitoring to [...] mL, i (more content not included)... Normal [facility] CT CERVICAL SPINE WO IV CONT [facility] 01-25-2024 CT CERVICAL SPINE WO IV CONTRAST [...] occult process. Approved by:Ryan Corrigan01/25/2024 6:22 AM. Trenton Julio,have reviewed the image(s) and agree with the findings in this report. Electronically signed: Trenton Martinez. 9 Invalid Interpretation Code [facility] CT CHEST WO IV CONTRASTon CT CHEST [...] signed: Trenton Martinez. 5 Invalid Interpretation Code [facility] CT HEAD WO IV CONTRASTon CT HEAD [...] signed: Trenton Martinez. 1 Invalid Interpretation Code [facility] HPon 01-25-2024 HP H&P reviewed. The pa jaqueline was examined and there are no changes to the H&P. 79-year-old man with history of paroxysmal atrial fibrillation s/p Amulet Amplatzer placed on 01/24/24 who developed hypotensive overnight requiring Levophed. Echo was done which showed moderate pericardial effusion, and plan is to perform pericardiocentesis. I explained the risks and benefits of the procedure. He would like to proceed. Normal [facility] LACTIC ACID WITH 4 HOUR REFL EXon 01-25-2024 LACTATE (MMOL/L) IN SER/PLAS 2.1 mmol/L Normal 0.5-2.2 [facility] Comment on above: Performed By: #### L [id number] ####[facility] (AKER)[address] [place] [address] LACTATE (MMOL/L) IN SER/PLAS 3.3 mmol/L Critically high 0.5-2.2 [facility] Comment on above: Performed By: #### L [id number] #### [facility] ([facility]) [address] [place] [address] MAGNESIUMon 01-25-2024 Magnesium [Mass/Vol] 1.8 mg/dL Low 1.9-2.7 [facility] Comment on above: Performed By: #### L [id number] #### [facility] (BEAKER) [address] [place] [address] POCT GLUCOSE METER UNSOLICIT ED RESULTSon 01-25-2024 Glucose [Mass/Vol] 164 mg/dL High 70-105 [facility] Comment on above: Order Comment: Waive d Testing in the ED is performed under the ED CLIA certificate #[id number]. Result Comment: tful ks2 Performed By: #### L [id number] #### [facility] ([facility]) [address] [place] [address] Glucose [Mass/Vol] 134 mg/dL High 70-105 [facility] Comment on above: Order Comment: Waive d Testing in the ED is performed under the ED CLIA certificate #[id number]. Result Comment: amur tad Performed By: #### L [id number] #### [facility] ([facility]) [address] [place] [address] Glucose [Mass/Vol] 167 mg/dL High 70-105 [facility] Comment on above: Order Comment: Waive d Testing in the ED is performed under the ED CLIA certificate #[id number]. Result Comment: amur tad Performed By: #### L [id number] #### [facility] ([facility]) [address] [place] [address] Glucose [Mass/Vol] 208 mg/dL High 70-105 [facility] Comment on above: Order Comment: Waive d Testing in the ED is performed under the ED CLIA certificate #[id number]. Result Comment: amur tad Performed By: #### L [id number] ####[facility] ([employer])[address] [place] [address] Glucose [Mass/Vol] 270 mg/dL High 70-105 [facility] Comment on above: Order Comment: Waive d Testing in the ED is performed under the ED CLIA certificate #[id number]. Result Comment: nbow en Performed By: #### L [id number] ####[facility] ([employer])[address] [place] [address] PROCALCITONIN TESTon 024 PROCALCITONIN IN BLOOD 0.05 ng/mL Normal 0.00-0.10 [facility] Comment on above: Result Comment: Susp ected [...] and initial PCT<0.5ng/mL Performed By: #### L [id number] #### [facility] (BEAKER) [address] [place] [address] PROTIME-INRon 01-25-2024 INR IN PPP BY COAGULATION ASSAY 1.24 High 0.90-1.10 [facility] Comment on above: Result Comment: ACCC P [...] RANGE. CHEST 1995;[id number]. Performed By: #### L [id number] #### [facility] ([facility]) [address] [place] [address] PROTHROMBIN TIME (PT) IN PPP BY COAGULATION ASSAY 15.7 Seconds High 12.3-14.8 [facility] Comment on above: Performed By: #### L [id number] #### [facility] ([facility]) [address] [place] [address] TROPONIN Ion 01-25-2024 Troponin I.cardiac [Mass/Vol] 0.84 ng/mL Critically high 0.00-0.04 [facility] Comment on above: Performed By: #### L [id number] ####[facility] ([facility])[address] [place] [address] 30on 01-24-2024 30 The patient is Moder [...] and maintained or improved Outcome: Progressing Normal [facility] BASIC METABOLIC PANELon 12-27 Anion gap [Moles/Vol] 13 mmol/L Normal 7-20 [facility] Comment on above: Performed By: #### L [id number] ####[facility] ([facility])[address] [place] [address] Calcium [Mass/Vol] 8.8 mg/dL Normal 8.6-10.3 [facility] Comment on above: Performed By: #### L [id number] ####[facility] (BEAKER)[address] [place] [address] Chloride [Moles/Vol] 103 mmol/L Normal 98-107 [facility] Comment on above: Performed By: #### L [id number] ####[facility] [place] [address] CO2 [Moles/Vol] 25 mmol/L Normal 21-31 [facility] Comment on above: Performed By: #### L [id number] ####[facility] [place] [address] Creatinine [Mass/Vol] 1.26 mg/dL Normal 0.70-1.30 [facility] Comment on above: Performed By: #### L [id number] ####[facility] ([facility])[address] [place] [address] GLOMERULAR FILTRATION RATE ML/MIN/1.73 SQ M.PREDICTED 58.4 mL/min/1.73m*2 Low >60.0 [facility] Comment on above: Result Comment: [facility]???s estimated glomerular filtration rate (eGFR) will no [...] of individuals. Performed By: #### L [id number] ####[facility] [place] [address] Glucose [Mass/Vol] 184 mg/dL High 70-100 [facility] Comment on above: Performed By: #### L [id number] ####[facility] [place] [address] Potassium [Moles/Vol] 4.3 mmol/L Normal 3.5-5.1 [facility] Comment on above: Performed By: #### L [id number] ####[facility] [place] [address] Sodium [Moles/Vol] 137 mmol/L Normal 136-145 [facility] Comment on above: Performed By: #### L [id number] ####[facility] ([facility])[address] [place] [address] Urea nitrogen [Mass/Vol] 21 mg/dL Normal 7-25 [facility] Comment on above: Performed By: #### L [id number] ####[facility] ([facility])[address] [place] [address] UREA NITROGEN/CREATININE (MASS RATIO) IN SER/PLAS 16.7 Normal [facility] Comment on above: Performed By: #### L [id number] ####[facility] ([facility])[address] [place] [address] HPon 01-24-2024 HP History Of Present Nori [...] In April 2019 he presented to the [facility] with atrial fibrillation with controlled [...] cardiac remod (more content not included)... Normal [facility] MRSA/MSSA DNA NASALon 2023 MRSA DNA Negative Normal Negative [facility] Comment on above: Order Comment: Testi ng [...] preclude nasal colonization. Performed By: #### L [id number] ####[facility] ([facility])[address] [place] [address] MSSA DNA Negative Normal Negative [facility] Comment on above: Order Comment: Testi ng [...] preclude nasal colonization. Performed By: #### L [id number] ####[facility] ([facility])[address] [place] [address] NURSNOTEon 01-24-2024 NURSNOTE CHG wipes completed. Normal [facility] POCT GLUCOSE METER UNSOLICIT ED RESULTSon 01-24-2024 Glucose [Mass/Vol] 146 mg/dL High 70-105 [facility] Comment on above: Order Comment: Waive d Testing in the ED is performed under the ED CLIA certificate #[id number]. Result Comment: [facility] di3 Performed By: #### L [id number] #### [facility] ([facility]) [address] [place] [address] TYPE AND SCREENon 01-24-2024 AB SCREEN Negative [facility] Comment on above: Performed By: #### L [id number] ####[facility], ABO group Nom (Bld) A Normal [facility] Comment on above: Performed By: #### L [id number] ####[facility], RH TYPE IN BLOOD Positive Normal [facility] Comment on above: Performed By: #### L [id number] ####[facility], Basophils Auto (Bld) [#/Vol] on 01-18-2024 Basophils (Bld) [#/Vol] 0.0 10 3/uL 0.0-0.1 [facility] Basophils/100 WBC Auto (Bld) on 01-18-2024 Basophils/100 WBC (Bld) 0.4 % 0.2-2.0 [facility] Eosinophils/100 WBC Auto (Bl d)on 01-18-2024 Eosinophils/100 WBC (Bld) 2.3 % 0.9-7.0 [facility] Erythrocyte distribution wid th Auto (RBC) [Ratio]on 01-18-2024 Erythrocyte distribution width (RBC) [Ratio] 13.6 % 11.0-15.0 [facility] Estimated glomerular filtrat ion rate (GFR) non- Americanon 01-18-2024 GFR/1.73 sq M.predicted among non-blacks MDRD (S/P/Bld) [Vol rate/Area] 48 mL/min/{1.73_m2} Low >=60 [facility] Hematocrit Auto (Bld) [Volum e fraction]on 01-18-2024 Hematocrit (Bld) [Volume fraction] 37.0 % Low 42.0-54.0 [facility] Hemoglobin [Mass/volume] in Bloodon 01-18-2024 Hemoglobin (Bld) [Mass/Vol] 11.7 g/dL Low 14.0-18.0 [facility] Laboratory - Chemistry and C hemistry - challengeon 01-18-2024 Calcium [Mass/Vol] 8.6 mg/dL 8.5-10.1 [facility] Chloride [Moles/Vol] 103 mmol/L 98-107 [facility] CO2 [Moles/Vol] 30.4 mmol/L 21.0-32.0 [facility] Creatinine [Mass/Vol] 1.44 mg/dL High 0.70-1.30 [facility] GFR/1.73 sq M.predicted MDRD (S/P/Bld) [Vol rate/Area] 58 mL/min/{1.73_m2} Low >=60 [facility] Glucose [Mass/Vol] 140 mg/dL High 74-106 [facility] Potassium [Moles/Vol] 4.5 mmol/L 3.5-5.1 [facility] Sodium [Moles/Vol] 140 mmol/L 136-145 [facility] Urea nitrogen [Mass/Vol] 17.0 mg/dL 7.0-18.0 [facility] Urea nitrogen/Creatinine [Mass ratio] 11.8 mg/mg [facility] Laboratory - Hematology and Cell countson 01-18-2024 Immature granulocytes/100 WBC (Bld) 0.0 % 0.0-0.5 [facility] Leukocytes [#/volume] correc iván for nucleated erythrocytes in Blood by Automated counon 01-18-2024 WBC corrected for nucl RBC Auto (Bld) [#/Vol] 4.8 10 3/uL 4.0-11.0 [facility] Lymphocytes Auto (Bld) [#/Vo l]on 01-18-2024 Lymphocytes (Bld) [#/Vol] 1.6 10 3/uL 1.2-3.8 [facility] Lymphocytes/100 WBC Auto (Bl d)on 01-18-2024 Lymphocytes/100 WBC (Bld) 33.8 % 20.5-60.0 [facility] MCH Auto (RBC) [Entitic mass ]on 01-18-2024 MCH (RBC) [Entitic mass] 28.3 pg 25.9-34.0 [facility] MCHC Auto (RBC) [Mass/Vol]on 01-18-2024 MCHC (RBC) [Mass/Vol] 31.6 g/dL 29.9-35.2 [facility] MCV Auto (RBC) [Entitic vol] on 01-18-2024 MCV (RBC) [Entitic vol] 89.6 fL 80.0-94.0 [facility] Monocytes Auto (Bld) [#/Vol] on 01-18-2024 Monocytes (Bld) [#/Vol] 0.6 10 3/uL 0.3-0.8 [facility] Monocytes/100 WBC Auto (Bld) on 01-18-2024 Monocytes/100 WBC (Bld) 11.8 % 1.7-12.0 [facility] Neutrophils Auto (Bld) [#/Vo l]on 01-18-2024 Neutrophils (Bld) [#/Vol] 2.5 10 3/uL 1.4-6.5 [facility] Neutrophils/100 WBC Auto (Bl d)on 01-18-2024 Neutrophils/100 WBC (Bld) 51.7 % 43.0-75.0 [facility] No Panel Informationon 01-17 Eosinophils # (Auto) 0.1 10 3/uL 0.0-0.7 [facility] Immature Granulocyte # (Auto) 0.00 10 3/uL 0.00-0.03 [facility] Orders Onlyon 01-18-2024 Orders Only [id number] Amina Goncalves e R 1945 Date Provider Department Center 01/18/2024 AMY [facility] VASC LAB UT HeartVAS Family History Problem Relation Age of Onset Cancer Mother Heart attack Other Family Status - Relation Status Age at Mother Other [facility] Platelet mean volume Auto (B ld) [Entitic vol]on 01-18-2024 Platelet mean volume (Bld) [Entitic vol] 11.4 fL 9.5-13.5 [facility] Platelets Auto (Bld) [#/Vol] on 01-18-2024 Platelets (Bld) [#/Vol] 186 10 3/uL 150-450 [facility] RBC Auto (Bld) [#/Vol]on RBC (Bld) [#/Vol] 4.13 10 6/uL Low 4.70-6.10 [facility] Serum or plasma anion gap de terminationon 01-18-2024 Anion gap [Moles/Vol] 11.1 mmol/L [facility] Prep for Procedureon 024 Prep for Procedure [id number] Amina Goncalves R 1945 Date Provider Department Center 11/24/2023 Daily-MADISON PAUL MC [facility] Family History Problem Relation Age of Onset Cancer Mother Heart attack Other Family Status - Relation Status Age at Mother Other [facility] Optical coherence tomography study reporton 10-28-2023 [facility] Radiology Study observation (narrative) [facility] Prep for Procedureon 024 Prep for Procedure [id number] Amina Goncalves e R 1945 M Date Provider Department Center 10/27/2023 MADISON MOSES Family History Problem Relation Age of Onset Cancer Mother Heart attack Other Family Status - Relation Status Age at Mother Other [facility] Orders Onlyon 10-25-2023 Orders Only [id number] MichOliver ramireznick wisdom R 1945 Date Provider Department Center 10/25/2023 MADISON MOSES Family History Problem Relation Age of Onset Cancer Mother Heart attack Other Family Status - Relation Status Age at Mother Other [facility] Office Visiton 10-24-2023 Follow-up visit [id number] Amina Goncalves R 1945 [facility] Department [place] 10/24/2023 Daniel-MAGGY MURPHY Family History Problem Relation Age of Onset Cancer Mother Heart attack Other Family Status - Relation Status Age at Mother Other Level of Service:[address] [place] OFFICE/OUTPATIENT ESTABLISHED LOW MDM 20 MIN [facility] Prep for Procedureon 024 Prep for Procedure [id number] MichjamesAmina wisdom R 1945 Provider Department Center 10/17/2023 MADISON MOSES Family History Problem Relation Age of Onset Cancer Mother Heart attack Other Family Status - Relation Status Age at Mother Other [facility] 36on 10-05-2023 37 Patient underwent hi s pre-LAAO JESSICA. He is a candidate for an occlusive device. Spoke to patient regarding next steps. He needs to have shared decision documentation with another physician. He will be seeing his primary icing mixer in a couple weeks. Discussed possible procedure date of 11/01/2023. He states he would consider this and would further discuss with his daughter. Of note, he is planning a trip to [place] for 1 month mid October and he will return the end of November. [facility] Telephoneon 10-05-2023 Telephone [id number] Amina Goncalves R 1945 M Date Provider Department Center 10/05/2023 MADISON MOSES Family History Problem Relation Age of Onset Cancer Mother Heart attack Other Family Status - Relation Status Age at Mother Other [facility] ANESon 09-16-2023 ANES ------ -- Attestation signed [...] 09/16/23 0900 Procedure: TRANSESOPHAGEAL ECHO (JESSICA) Location: [facility] Vascular Lab Clinical information reviewed: Allergies Meds Physical Exam Airway Mallampati: II Cardiovascular Rhythm: regular Rate: normal Dental Pulmonary Breath sounds clear to auscultation Abdominal Anesthesia Plan ASA 3 other (Moderate sedation) Anesthetic plan and risks discussed with patient. Use of blood products discussed with patient who. Plan discussed with fellow and attending. Additional Equipment Requests [facility] HPon 09-16-2023 HP ------ -- Attestation signed [...] there are no changes to the H&P. [facility] NURSNOTEon 09-16-2023 NURSNOTE RN educated pt on d/ c instructions. RN encouraged pt to voice any questions or concerns. Pt verbalizes no questions or concerns at this time. [facility] NURSNOTE Bedside swallow stud y completed and passed. [facility] Telephoneon 09-15-2023 Telephone [phone] Amina Goncalves 1945 M Date Provider Department Center 09/15/2023 RUSTY [facility] VAS LAB AR HeartVAS Family History Problem Relation Age of Onset Cancer Mother Heart attack Other Family Status - Relation Status Age at Mother Other [facility] HPon 09-06-2023 [facility] Cardiology - [facility] Subjective Tito Goncalves is a 78 y.o. year old male patient being seen to discuss LAAO. He presented to [facility] ED in Jun 2023 for fall. He is anticoagulated with warfarin for afib. Back in December 2022 he had brain bleed s/p fall. Was treated at [facility]. He denies chest pain, SOB, and lightheadedness/syncope. [...] In April 2019 he presented to the [facility] with atrial fibrillation with controlled [...] Take 1 tablet (more content not included)... [facility] Office Visiton 09-06-2023 Follow-up visit [id number] Oliver Goncalvesnick Blackman 1945 M Date Provider Department Center 09/06/2023 Val-[facility] Amilcar Hos Family History Problem Relation Age of Onset Cancer Mother Heart attack Other Family Status - Relation Status Age at Mother Other Level of Service:[address] [place] OFFICE/OUTPATIENT ESTABLISHED HIGH MDM 40-54 MIN [facility] Coding Summaryon 07-11-2023 Coding Summary HTMLBase 64 AkrcdkllWDf8xXf+PGhlYWQ+PE 5MWHYqR50xvKMvjX0dA5JVPOoE JxcvMWINIVqKVwLkkoOpGH4cxC NjZXJu IC8+CT0fIBTaYodolURwc4T3yR B8V94cvw7pYQxdlCR1CVXoXjRn nmkxn1glxMw5BAulFuzbAkAc SPVqnZ57UZF5hA75Uh72wNZsfI Xoy3iyyCp5OzFjIXToPDH9nTew GTmav2RoYLHzM33hmSHuf4D1 UWOhvBezkHRxGhXuqGT4hR3iAN qkcdpym9fxxmyuPwv9vr89fJLe e7B2eZB0V5AxjbO9NWBpvDIv BelruRYThO7wawhau1cxxqlgGn NeAOAyFMl7GQu8BAMiaJamJfIj CE37PFL3NPMthqTyF8IiZNSt kWxhYnA3z0N7Op9AB9TXPalaZ0 VNTUFSWTwvdGQ+XS32cv69D6Xq PysaKtd8NOBjFLG8bQN3hT3b WNYoVIkgz6W2cEY7J4SikdRsjm 4nm5iqJYScXFpxC61dqXIhy4B7 MZCdiCF7VTTkiMpbCkZwrQ75 Oyc+AQGcoFxqk3XnRhhoe7vry2 jraXs4CchrLWTvivPkyCdaXYV8 c0VgJv6kLGUzlYU7lDD9vQ7n HrKeUvH4QFhmV621FsQdyPGuTz yeR27zX6CwoKL+BBIhHuo5SLPk vDroGS4tM4DsYVLtrbhdjLIf uSlsLO8uAEUcgmfgBHEfkH8vMT TfY6h1AiWuNpM4OUmpC1FyIOZf mrwoUx78bL2fRmZrSkR2LNtb D9BlkeH7OUEjpQDgELgnJBG0E2 1eo1V3SEHxRMIiZVO2nTV8pL7w bGlnbjogbGVmdDsgdmVydGlj INiuOFdnD418YJJowNheBrPvGY luZyBEYXRlOiAgMTAvMTYvMjAy MzwvdGQ+CBToWTF3rYxiWRPn ySMbIGsmJg4lrIjytEfaLK8tNM AirtuxRSPfjS1tORHkpSTwgHsy PP3qYZGvtzajc626UfWpNXZ8 QEHcsVHtI0OvqL9uDmNpDLXmGG TfY3NsqELuFXxyR758TIdwTsI0 TFOsqpCxX3VvMSYtrUrmElA4 g4W0Pz9Wc1LtgtdrN2MhwLOlJp VcHxceDYm2N2BgJhlebWO+PC90 SDMpNS03GMb1CEU3oHaoWRlg TRJcC2JztI2aYiOcGHPpUADpHp c+PHRhYmxlIHdpZHRoPScxMDAl KfQuzVncRT0cRj1hIXPdXBUn cYlopTUaBnDdd4dcAQSoKErtRO 9ldMpiU8YgiTU5IJHbs0g7Mk75 J63vF6YlmVQ+DLOglFG9gYV7 nW6hNmEvYqJ7GVddK434BiLvpX GcTjpsl1yzz0lckUy2LvV1QWTl dlLscYnfRHW7z3JmPx25Z02b IHdpZHRoPSIxNSUiIHZhbGlnbj 3luS8sZf1+SAKxeJM4oKS8qF2r QiBuBhY0XZkoY704XzZuvDQw Nmxow7ovl5faxFh8WbCcATEnww JptAhgALD6f1GgKj35O7VtoRcl z9GyAho6nt87sLCkq5P1uEX5 B1OeQUQqvocrzPPccFfdUM3mXO LbzwnmLRWekN8qOUNxZ8y3HpYd CnQ1HOsbC6YzziG9CQQojXXp JUQnjQUDtA7xwfple7vapexvBi TrTUJtABp0DRy2UTJrkLhxOsNi MZB3WoA1JRF5lRWzuA6jtAny xptmeV5dKmv+IQL3dETynKDLLC 1lOjwvdGQ+CKKsDVW9kOjeTKdl UCYioH0gSTXwV5o4BqMaIqP8 SBicK9TzjfT4JNTrkGSxVWZssS GPyQ6rkukik3eevigqDqWwSICc MGy8NRt9MCEfeEyoFbDyBJL4 PbP6VKF9mZQywO2nzUqanygpyA 9wOyc+BaxjlGtuKQJ7YNh6P1Pf Xsl0BKKgvRuxKP8ywGUbPHxf Dh2kcFcyvYufII4uLGFwesboe3 76RePrf9wmVDCsmNKvBZfaOFY7 B52mj6Y4PKGeZXCtNFI8qPU4 tN6loVfqmoslxFKjbZlzvcGzoD juNSxrRQrrA701MPSbiHozGfSz KSi6I1IyLzy4HAUjvEzpIV4z zBBdGTpdLh9atHhqaTjlYH7qMO Jdkkkcb397MjDip8nnVIGvdSDs TUjfVAG3K28xx7D1BDJzWCOt AQL2bBO5fE5mfHhrduyaaWCqvZ vzclQtcIkvRMkxJSqgD746OVMz oElqVlRgeBj7S3UiYdz4JBYd qTyzDA8nwXTeVPjdTr6olHqpjX tuZB7yLFKbofylt201NtZnk7ik IONhuVJuZMnbQZZ5G30pi3Z4 XGDlXQIyRTQ2tPY9yV6smLxuxo ogbGVmdDsgdmVydGljYWwtYWxp K159MJVfySfmTbTlqKmguhEj SSgjSXi5Z1KhGkkqzLQ+PC90YW PuMT62uESubBVny8ewvJf4WwCd OBBsZZE7cPleFWifq1PwAQNx D66zhZZqp7R6UWEudHjurVHwMa BxiGM5jY8eTVlpdrxpi2sezqtx Zrnbq0jahg15sR88X28dFIes ZECiQCSvASXbVIAbkAvlan0auL 9wIi8+AOUbkXB8vGA6qQ6wMNNw XtB8IIknJ897TpTkcLMlHaqs k9obf7iffKa9VeQ5OYCbwfYumY fvOHQ9t5EoJd95A19uYQcuSIKc FFTbQFEfCUWqpYbznn6btK1e Ii8+HPKxxSM5eCC9yP9vRnStLw K9BXxoJ371WpEirJSaZlcuL32l R4MpyPF+ETMqOyz4EIMwfAcy KH3imVJdQQpvXw4rASI8DbVfFr GyZUwuQ5BjTMPouomzwljykDR2 LTGrJNSmvV84Fy7kyHffYCLd bXLXsZ7iaketv9pkteohLmHhWF IzXSi0KEi3VDEnwItjLwAhIML7 XcJ4OOX7wKOwsR7laSdpjewe iQ9rO6XcVKKvrmtaKw08zE0sSx PqOuN8RBhoVcm+W9ZOZPMzGFPM P8LGYRGIDJCKDDXJAZ52NY26 qMFmh5J5wMU5N6OaZBVfnwkmbh itjMD6VKWtTZGhfL68ySIgDGvq Bu2qt6P3y382MDXsAYXrdZ00 Eg8oiBgnNSLwsEIQeM1oxvmiq5 ogaqshIwWeNBXzDOm3UCd0UMCb uJlxKlObIDH1KpC2ZFL5uAQa oL1cjXnajubynD6zHxn+MDQvMj uoINe6JyocgAM+GXOaCYD2qGdb YYiwMVGjbH2lHQZgN3q0SzYu LbC9NDavF3MoTHNsnozpPa04jD 1vVrBuHgF9CPkqK0IelbW0HCKa gTZtLTcgVEY4M21io0T8KKWc ELIpDRO0gLQ7aK3zxAendybgbQ QymEqsgkFyaCxeIJmhRXidJ460 EEKdvHocEvt8GSlaXXAxHN06 OS39hQQqq9Q6iUM3W1PjKKLfos quvzrohOH3HCYsZBXokL61zCJw FLjaIf9aq4E8z528ABMjZCFz vF64Fo5ioQafNFXmgFNNjR5pat dad3tbhiwsEoYvTBVsWEm1KZv0 EZWuiZnjBgGgIKE8LdI1YTT3 kBCcjG6syAbmzcadkV2mCbs+TU FMRTwvdGQ+LYYfVUK7qNujCPov IDEekJ5eVYRkK5z3KfVvYjL2 SBihH5FoJXLliafbNf28wT5tMx FgRvX5HXomF5NdzqZ3HCKwlFZb XQupMVS5M76vo9S8GFYlLKCd FCF5dGK8iG6mrDdnxoagnLCouM mpyiWbpBceVCayPNupG551KPPs sYcoCaVfWWMlEU4czLtvuDE+ QV00ag53S0MaRrmtWtq6OFGeDQ B7iBU3eN9vUQTiBIulu7U8rQM5 P3GgleIiqz8ye7xoYZGsFYxo P83kfYJqc7C7UBIfgLU1JMMviO tnBbMzgT50Bub+NRDwrGbcy1He Vhozd9vur8jxoHa0ObHeTBXf xvUchGlcWMD0c5WnKj82B60pHF yvKGBlQMTcFUPbLNRseLdqrv3p uD1bEg4+GSYscMC6xBT4nE8h GqCqPwB9IEmlU793EzPlgKPfWq wbz0yyi1jcqWb3UmFgIDAfgvRl mDdfWKG9f0OmFb50U6TxnPmn l2HbZeh7ie19aFUsm4R9sXT2R6 IzLCJhgxgddJAbgWsuHJ6bSHNi lvmqCBOppV9pZELaC9l3ZfKp FrT8WVjlU6MqwmF3QCLdnJWhEB JgoXKZoQ9qnrusi6keixldFvXg WPAwEZz9NHx7FZJalUrmReNq BRT3PqP9QNS4vMPncT8foSpfis pgkP9bNmv+CQe9s9yxwRRsDZ4b fIU2QP90PR77zRRqu8L1gLR6 W7JbEUQdgurwvuoowNZ0IVYcQC UjnE69Mf7hfXueUc3hDXHkEXO8 GIUjvOOdN1YolA1iJgJbCCXc ZWUnV0QbkZEoQHdzP652OEcuSa L7KGOodnHdP7RaAZRoqInnYgM3 v7X5Zg7IMC74JC43ET27qEZu l5P3pFR4V2QcUIZiguhshpnfsJ H9ANRcPMWpvB95Py0diKcoKj8l XPEkPRF4IOCrwHPmK3TcbM9o HgIsMNDwHXCnZ0KpfMZdPGdsB7 61HZzzIbE7UEDvjlZkK8GnKHDg tGrdHwU5z4Z1Os5HNn89FB88 OZ21jRCsu1K7oWV9E1TtKXWdch psixkvqXT3VBEkZZLihV68Xm0b rAmvHp3rKBJqOBN1ROBugHVn S7ZlsR9pQnTzJRJlBHOhF7JmaU KrZMaqE156SJdrDrW9QWZhqtVi H2CaENJutOsyDkR3j3O9Cw8H HLwifwj0R7EwTlixtEG+PC90YW EbSV49cWYirPQaw5xjjWf9SaDx VVQpFBB9qYzcXFdir0EqAMQd Y29 (more content not included)... [facility] ED Clinical Summaryon 2022 ED Clinical Summary [facility] - Emergency Department [address] [place] [address] ED Clinical Summary PERSON INFORMATION Name: TITO GONCALVES Age: 78 Years Sex: MALE : 1945 MRN: Acct#: Visit Reason: Eye Injury; Fall; FALL/LT EYE LAC Arrival: 07/05/2023 16:48:26 Discharge: 07/05/2023 18:40:00 LOS: 000 01:52 Check In: 07/05/2023 16:48:26 Checkout:07/05/2023 18:40:00 Address: [address] [place] [id number] PCP: Augustine Metz PROVIDER INFORMATION Provider Role [...] understanding of instructions given Comment: [facility] ED Patient Education Noteon 07-05-2023 ED Patient Education Note Education Materials [facility] ED Patient Summaryon 023 ED Patient Summary [facility] - Emergency Department [address] [place] [address] PATIENT DISCHARGE INSTRUCTIONS Patient Information Name: TITO GONCALVES Age: 78 Years Date of : 1945 Reason For Visit: Eye Injury; Fall; FALL/LT EYE LAC Arrival Time: 07/05/2023 16:48:26 Primary Care Physician: Augustine Metz Attending Physician: Colin Song DO Comment: Visit Diagnosis: Diagnoses This Visit Eye Injury ([id number]) Fall ([id number]) The Pharmacy at [facility] is open Tuesday through Tuesday from [...] alcohol and/or drug addiction problems; contact the [facility] 18/04 Crisis Hotline -Text 4TYUL lf 475148. If you received any narcotics, sedation, or [...] and treatment you received today in the [facility] Emergency Department were for an urgent problem and are not intended as complete care. It is important for you to follow up with a doctor, nurse practitioner, or physician?s business banking sales assistant for ongoing care. If your symptoms [...] so we can reach you if necessary. [facility] Emergency Department has provided you with a complete list of medications post discharge. 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 Normal [facility] Phone Msgon 02-01-2023 Phone Msg - [...] mailed to his address on file. Normal [facility] CBC AUTO DIFFon 2023 BASO # 0.0 103/ul Normal 0.0-0.1 [facility] Comment on above: Performed By: #### C BC #### [facility] [address] [place] [address] Dr. Arjun Menjivar Basophils/100 WBC (Bld) 0.4 % Normal 0.2-2.0 [facility] Comment on above: Performed By: #### C BC #### [facility] [address] [place] [address] Dr. Arjun Menjivar EO # 0.1 103/ul Normal 0.0-0.7 [facility] Comment on above: Performed By: #### C BC #### [facility] [address] [place] [address] Dr. Arjun Menjivar Eosinophils/100 WBC (Bld) 1.5 % Normal 0.9-7.0 [facility] Comment on above: Performed By: #### C BC #### [facility] [address] [place] [address] Dr. Arjun Menjivar Erythrocyte distribution width (RBC) [Ratio] 13.7 % Normal 11.0-15.0 [facility] Comment on above: Performed By: #### C BC #### [facility] [address] [place] [address] Dr. Arjun Menjivar Hematocrit (Bld) [Volume fraction] 41.9 % Critically low 42.0-54.0 [facility] Comment on above: Performed By: #### C BC #### [facility] [address] [place] [address] Dr. Arjun Menjivar Hemoglobin (Bld) [Mass/Vol] 13.7 g/dL Critically low 14.0-18.0 [facility] Comment on above: Performed By: #### C BC #### [facility] [address] [place] [address] Dr. Arjun Menjivar IG # 0.02 10e3/ul Normal 0.00-0.03 [facility] Comment on above: Performed By: #### C BC #### [facility] [address] [place] [address] Dr. Arjun Menjivar IG % 0.3 % Normal 0.0-0.5 [facility] Comment on above: Performed By: #### C BC #### [facility] [address] [place] [address] Dr. Arjun Menjivar LYMPH # 1.4 103/ul Normal 1.2-3.8 [facility] Comment on above: Performed By: #### C BC #### [facility] [address] [place] [address] Dr. Arjun Menjivar Lymphocytes/100 WBC (Bld) 16.9 % Critically low 20.5-60.0 [facility] Comment on above: Performed By: #### C BC #### [facility] [address] [place] [address] Dr. Arjun Menjivar MANUAL DIFF REQ NO Normal [facility] Comment on above: Performed By: #### C BC #### [facility] [address] [place] [address] Dr. Arjun Menjivar MCH (RBC) [Entitic mass] 28.8 pg Normal 25.9-34.0 [facility] Comment on above: Performed By: #### C BC #### [facility] [address] [place] [address] Dr. Arjun Menjivar MCHC (RBC) [Mass/Vol] 32.7 g/dL Normal 29.9-35.2 [facility] Comment on above: Performed By: #### C BC #### [facility] [address] [place] [address] Dr. Arjun Menjivar MCV (RBC) [Entitic vol] 88.2 fL Normal 80.0-94.0 [facility] Comment on above: Performed By: #### C BC #### [facility] [address] [place] [address] Dr. Arjun Menjivar MONO # 0.5 103/ul Normal 0.3-0.8 [facility] Comment on above: Performed By: #### C BC #### [facility] [address] [place] [address] Dr. Arjun Menjivar Monocytes/100 WBC (Bld) 5.9 % Normal 1.7-12.0 [facility] Comment on above: Performed By: #### C BC #### [facility] [address] [place] [address] Dr. Arjun Menjivar NEUT # 6.0 103/ul Normal 1.4-6.5 [facility] Comment on above: Performed By: #### C BC #### [facility] [address] [place] [address] Dr. Arjun Menjivar Neutrophils/100 WBC (Bld) 75.0 % Normal 43.0-75.0 [facility] Comment on above: Performed By: #### C BC #### [facility] [address] [place] [address] Dr. Arjun Menjivar Platelet mean volume (Bld) [Entitic vol] 11.4 fL Normal 9.5-13.5 [facility] Comment on above: Performed By: #### C BC #### [facility] [address] [address] [address] Arjun Menjivar PLT 169 103/ul Normal 150-450 [facility] Comment on above: Performed By: #### C BC #### [facility] [address] [place] [address] Dr. Arjun Menjivar RBC 4.75 106/ul Normal 4.70-6.10 [facility] Comment on above: Performed By: #### C BC #### [facility] [address] [place] [address] Dr. Arjun Menjivar WBC 8.0 103/ul Normal 4.0-11.0 [facility] Comment on above: Performed By: #### C BC #### [facility] [address] [place] [address] CSPINE WO CONon [...] SALINA ESPINOZA Date: 2023 16:25 Normal [facility] CT HEAD WO CONon 2023 CT HEAD [...] TOSHIA ANDRES Date: 2023 21:30 Normal [facility] PROF 14(COMP METB)on 01-21- 023 Albumin [Mass/Vol] 3.7 g/dL Normal 3.4-5.0 [facility] Comment on above: Performed By: #### C MP ####[facility] [id number] [address]Dr. Arjun Menjivar Albumin/Globulin [Mass ratio] 1.1 {ratio} Normal [facility] Comment on above: Performed By: #### C MP ####[facility] [id number] [address]Dr. Arjun Menjivar ALP [Catalytic activity/Vol] 87 U/L Normal 46-116 [facility] Comment on above: Performed By: #### C MP ####[facility] [address] [place], [place] [address]Dr. Arjun Menjivar ALT [Catalytic activity/Vol] 26 U/L Normal 16-63 [facility] Comment on above: Performed By: #### C MP ####[facility] Wn[address] [place], [place] [address]Dr. Arjun Menjivar Anion gap [Moles/Vol] 9.2 mmol/L Normal [facility] Comment on above: Performed By: #### C MP ####[facility] [address] [place], [place] [address]Dr. Arjun Menjivar AST [Catalytic activity/Vol] 20 U/L Normal 15-37 [facility] Comment on above: Performed By: #### C MP ####[facility] [address] [place], [place] [address]Dr. Arjun Menjivar Bilirubin [Mass/Vol] 0.4 mg/dL Normal 0.2-1.0 [facility] Comment on above: Performed By: #### C MP ####[facility] [address] [place] [address]Dr. Arjun Menjivar Calcium [Mass/Vol] 9.1 mg/dL Normal 8.5-10.1 [facility] Comment on above: Performed By: #### C MP ####[facility] [address] [place] [id number]. Arjun Menjivar Chloride [Moles/Vol] 105 mmol/L Normal 98-107 [facility] Comment on above: Performed By: #### C MP ####[facility] [address] [place] [address]Dr. Arjun Menjivar CO2 [Moles/Vol] 28.9 mmol/L Normal 21.0-32.0 [facility] Comment on above: Performed By: #### C MP ####[facility] [address] [place] [address]Dr. Arjun Menjivar Creatinine [Mass/Vol] 1.23 mg/dL Normal 0.70-1.30 [facility] Comment on above: Performed By: #### C MP ####[facility] [address] [place] [address]Dr. Arjun Otto EGFR-AF SWEDISH >60 Normal >=60 [facility] Comment on above: Performed By: #### C MP ####[facility] [address] [place] [address]Dr. Arjun Otto EGFR-NON AF SWEDISH 57 mL/min/1.73m2 Critically low >=60 [facility] Comment on above: Performed By: #### C MP ####[facility] [address] [place] [address]Dr. Arjun Menjivar Globulin (S) [Mass/Vol] 3.4 g/dL Normal [facility] Comment on above: Performed By: #### C MP ####[facility] [address] [place] [address]Dr. Arjun Otto Glucose [Mass/Vol] 126 mg/dL Critically high 74-106 [facility] Comment on above: Performed By: #### C MP ####[facility] [address] [place] [address]Dr. Arjun Menjivar Potassium [Moles/Vol] 4.1 mmol/L Normal 3.5-5.1 [facility] Comment on above: Performed By: #### C MP ####[facility] [address] [place] [address]Dr. Arjun Menjivar Protein [Mass/Vol] 7.1 g/dL Normal 6.4-8.2 [facility] Comment on above: Performed By: #### C MP ####[facility] [address] [place] [address]Dr. Arjun Menjivar Sodium [Moles/Vol] 139 mmol/L Normal 136-145 [facility] Comment on above: Performed By: #### C MP ####[facility] [address] [place], [place] [address]Dr. Arjun Menjivar Urea nitrogen [Mass/Vol] 12.0 mg/dL Normal 7.0-18.0 [facility] Comment on above: Performed By: #### C MP ####[facility] [address] [place], [place] [address]Dr. Arjun Menjivar Urea nitrogen/Creatinine [Mass ratio] 9.8 mg/mg Normal [facility] Comment on above: Performed By: #### C MP ####[facility] [address] [place], [place] [address]Dr. Arjun Menjivar PROTIMEon 2023 INR Coag (PPP) [Relative time] 2.90 {INR} Normal [facility] Comment on above: Performed By: #### P TT, PT ####[facility] [address] [place], [place] [address]Dr. Arjun Menjivar INR GUIDELINES SEE BELOW Normal [facility] Comment on above: Result Comment: PIOTR RED INR: 2.0 - 3.0 CONDITIONS NOT LISTED BELOW 2.5 - 3.5 FOR PROSTHETIC HEART VALVE REPLACEMENT 2.5 - 3.5 RECURRENT THROMBOSIS Performed By: #### P TT, PT ####[facility] [address] [place], [place] [address]Dr. Arjun Menjivar PT Coag (PPP) [Time] 28.9 s Critically high 9.0-11.6 [facility] Comment on above: Performed By: #### P TT, PT ####[facility] [address] [place], [place] [address]Dr. Arjun Menjivar PTTon 2023 aPTT Coag (Bld) [Time] 37.7 s Critically high 22.3-36.2 [facility] Comment on above: Performed By: #### P TT, PT ####[facility] [address] [place], [place] [address]GkMago Menjivar XR PELVIS 1_2 VIEWSon 2022 XR [...] by: LINDA WANG Date: 2023 16:14 Normal [facility] XR ERCP 1 HOUR FLUOROon 10-27 XR ERCP 1 HOUR FLUORO Fluoroscopic guidance for ERCP 11/09/2022 6:30 AM LOCK STITCH CHANNELER History: DR IBRAHIM;OTHER REASON Tech notes: WHAT [...] by: Radha Haji MD 11/10/2022 8:01 AM LOCK STITCH CHANNELER Technologist: EDITA Dictated By: RADHA HAJI MD Signed By: RADHA HAJI MD Signed Out: 11/10/22 09:01:42 Normal [facility] Anesthesiaon 11-09-2022 Anesthesia Patient: YE GONCALVES [...] Postoperative hydration status: euvolemic. Notes: Normothermia. Normal [facility] Anesthesia Patient: YE GONCALVES Age: 77 [...] release 325 mg = 1 caps, ORAL, [id number] trazodone = Desyrel 50 mg, ORAL, BID [...] available Procedure history: Endoscopic Retrograde Cholangiopancreatography (ERCP). (58584) on 11/09/2022 at 77 Years. Endoscopic Retrograde Cholangiopancreatography (ERCP). (89375) on 08/14/2021 at 76 Years. Esophagogastroduodenoscopy , flexible, transoral; with endoscopic ultrasound examination limited to the esophagus, stomach or duodenum, and adjacent structures (16324) on 07/10/2021 at 76 Years. Social History [...] palate, fauces, uvula visible). Assessment and Plan [place] [employer]esthesiologists (ASA) physical status classification: [...] recognition software. Verbal misinterpretations may occur. 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 with Lacquer Pin Press Operator : Yes Voided : No Pain Level and Site : 0 Sg GAVIN [facility] 11/09/2022 7:09 EST Present on Admission Medical Devices : None Medical Devices for Med Administration : None Sg GAVIN [facility] 11/09/2022 7:09 EST [place] Coma Eye Opening Response Vikas : Spontaneously Best Verbal Response Vikas : Oriented Best Motor Response [place] : Obeys simple commands Vikas Coma Score : 15 Sg GAVIN [facility] 11/09/2022 7:09 EST Advance Directive *Advance Directive : Yes Sg GAVIN [facility] 11/09/2022 7:09 EST Outpatient Fall Risk GEN_Fall Risk Indicators_49304 : Age 65 or greater, Medications altering equilibrium or cognitive judgement Fall Risk Band On : Yes Sg GAVIN [facility] 11/09/2022 7:09 EST Screening-Safety Domestic Concerns : None Feeling Down, Depressed, Hopeless : Not at all Little Interest - Pleasure in Activities : Not at all Initial Depression Screen Score : 0 Depression Screening Score 0 : No Sg GAVIN [facility] 11/09/2022 7:09 EST Education Barriers to Learning : None evident TeachBack Methodology : TeachBack, Demonstration, Explanation, Printed Material Sg GAVIN [facility] 11/09/2022 7:09 EST ENDO Education Activity Expectations : Verbalizes understanding Anesthesia/Sedation : Verbalizes understanding Endo Post Procedure Care : Verbalizes understanding Follow-Up Care/Appointment : Verbalizes understanding Safety : Verbalizes understanding Sg GAVIN [facility] 11/09/2022 7:09 EST Normal [facility] Inpatient Patient Summaryon 11-09-2022 Inpatient Patient Summary [facility] Discharge Instructions [address] [place] [address] \.br\(Patient Copy)\.br\ \.br\ \.br\Name: TITO GONCALVES : 1945 \.br\Diagnosis: \.br\ \.br\Allergies: sulfa drugs; penicillins; iodine topical\.br\ \.br\Registration Date: 11/09/22\.br\.br\.br\ \.br\ Current Date Time: 11/09/2022 08:44:54 \.br\ \.br\Address: [facility] [employer] [facility] [address] \.br\Phone: [phone] \.br\ \.br\Primary Care Provider: \.br\Name: AUGUSTINE METZ James\.br\Phone: [phone] \.br\ \.br\Thank you for choosing [facility] for your care. You are very important to us. Our goal is to demonstrate our high quality medical care and provide you with a very good patient experience.\.br\ You may receive a survey about our service. Please take the time to complete the survey and return it so we can continue to enhance our service.\.br\ Thank you again for allowing [facility] to care for your medical needs. If you have any questions about your care or follow up information please contact your doctor.\.br\.br\Follow-up Instructions\.br\.br\.br \With: Address: When: \.br\[facility] [address] [place] [address], [address] [place] [address]\.br\ Business (1) Within Call for Appointment \.br\.br\.br\.br\.br\P [...] ient education materials, if any, will display below\.br\[facility] ENDOSCOPY DEPARTMENT\.br\.br\FOLLOW UP CARE\.br\? For biopsy results, [...] tarry sto (more content not included)... Normal [facility] OR Nursing Record - Endoon 0 11-09-2022 OR Nursing Record - Endo OR Nursing Record - Endo Summary Primary Physician: PUJA HOLBROOK MD Finalized Date/Time: 11/09/22 08:27:34 Pt. Name: MICHJAMESTITO/Sex: 1945 Male Med Rec #: [id number] Physician: Financial #: [id number] Pt. Type: A Room/Bed: / Admit/Disch: 11/09/22 06:11:45 - Institution: Case Times - Endo Entry 1 Patient In Room Time 11/09/22 07:43:00 Out Room Time 11/09/22 08:24:00 Anesthesia Facility Times Induction Time 11/09/22 07:48:00 Stop Time 11/09/22 08:15:00 [facility] Protocol Yes Completed Surgery Start Time 11/09/22 [...] Case Attendee YUSEF UMANZOR, PUJA Haider RN, Minnie Saavedra RN Role Performed Surgeon Primary Bridge Teacher Primary Scrub Primary Time In 11/09/22 07:43:00 11/09/22 07:43:00 11/09/22 07:43:00 Time Out 11/09/22 08:24:00 11/09/22 08:24:00 11/09/22 08:24:00 Procedure ERCP(None) ERCP(None) ERCP(None) Last Modified By: Vitaly GAVIN, Martha Haider RN, Martha Barrera RN 11/09/22 08:21:41 11/09/22 08:21:41 11/09/22 08:21:41 Entry 4 Entry 5 Entry 6 Case Attendee Dena GAVIN, LESLI Shah DO, JILLIAN Role Performed Bridge Teacher Secondary Anesthesiologist Primary Anesthesia Asst/SODDER Time In 11/09/22 07:43:00 11/09/22 07:43:00 11/09/22 07:43:00 Time Out 11/09/22 08:24:00 11/09/22 08:24:00 11/09/22 08:24:00 Procedure ERCP(None) ERCP(None) ERCP(None) Last Modified By: Martha Haider RN, RN, Jill Laverty RN, Jill 11/09/22 08:21:41 11/09/22 08:21:41 11/09/22 08:21:41 Delays [...] 08:23 Martha Haider RN 11/09/22 08:27 Normal [facility] Operative Reporton Operative Report Patient: YE GONCALVES Age: 77 years Sex: Male : 1945 Associated Diagnoses: None Author: PUJA HOLBROOK MD Pre-Procedure Procedure Date: 11/09/2022 . Procedure Type: Endoscopic retrograde cholangiopancreatogram with removal of intra-ductal calculus. Procedure provider: Performed by PJUA HOLBROOK MD. Indications: Treatment of ascending cholangitis. [...] Liquids. Education and Follow-up: Patient Instructions: [facility] Within Call for Appointment. Notes: Follow-up in clinic as scheduled. Normal [facility] Comment on above: Order Comment: Ida ng Attachment [id number] can be viewed in source system Missing Attachment [id number] can be viewed in source system Missing Attachment [id number] can be viewed in source system Missing Attachment [id number] can be viewed in source system Missing Attachment [id number] can be viewed in source system Missing Attachment [id number] can be viewed in source system Result Comment: PACU Phase I - Endoon 2022 PACU Phase I - Endo PACU Phase I - Endo Summary Primary Physician: PUJA HOLBROOK MD Finalized Date/Time: 11/09/22 08:55:35 Pt. Name: TITO GONCALVES/Sex: 1945 Male Med Rec #: [id number] Physician: Financial #: [id number] Pt. Type: A Room/Bed: / Admit/Disch: 11/09/22 06:11:45 - Institution: PACU I Case Times - Endo Entry 1 In PACU I 11/09/22 08:25:00 Ready for Transfer 11/09/22 09:19:00 Last Modified By: Sariah Schreiber RN 11/09/22 08:55:34 Finalized By: Sariah Schreiber RN Document Signatures Signed By: Sariah Schreiber RN 11/09/22 08:55 Normal [facility] POC Glucoseon 11-09-2022 Glucose [Mass/Vol] 131 mg/dL High 72-100 [facility] Comment on above: Performed By: #### 1 [id number] ####[facility] [address] [place] [address] Medical Director: Diogo Carcamo MD Preop - Endoon 11-09-2022 Preop - Endo Preop - Endo Summary Primary Physician: PUJA HOLBROOK MD Finalized Date/Time: 11/09/22 07:13:53 Pt. Name: TITO GONCALVES/Sex: 1945 Male Med Rec #: [id number] Physician: Financial #: [id number] Pt. Type: A Room/Bed: / Admit/Disch: 11/09/22 06:11:45 - Institution: Preop - Case Times - Endo Entry 1 Patient Arrival Time 11/09/22 06:31:00 Patient Ready for 11/09/22 07:11:00 Surgery Report Given to n/a Last Modified By: Kaylyn Bettencourt RN 11/09/22 07:13:51 Finalized By: Kaylyn Bettencourt RN Document Signatures Signed By: Kaylyn Bettencourt RN 11/09/22 07:13 Normal [facility] Provider Letter - Ambulatory on 11-09-2022 Provider Letter - Ambulatory AUGUSTINE METZ, [address] [place] [address] RE: TITO GONCALVES 11/09/2022 Dear AUGUSTINE METZ [...] - (11/09/2022) GI ERCP with Anesthesia Normal [facility] Protocol/Pre-Proc TimeOut-Texton 11-09-2022 [facility] Protocol/Pre-Proc TimeOut-Text [facility] Protocol Entered On: 11/09/2022 7:13 EST Performed [...] Haider RN - 11/09/2022 7:48 EST Normal [facility] Phone Msgon 02-13-2023 Phone Msg - From: Lori Cintron MA [...] Pt was asked to speak with his icing mixer'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 Normal [facility] MRI ABDOMEN WO CONon 023 MRI [...] by: SANTOS DC Date: 2022-11-01 09:53 Normal [facility] Phone Msgon 10-28-2022 Phone Msg - [...] Number: H Did he say who his Manufacturing Sr Engineer was? From: Caren Carvalho RN To: Blanca Bazzi; Fela Alexandre; Sent: 10/28/2022 09:50:53 EST Subject: RE: Cardiac Clearance Caller Name: TITO GONCALVES; Caller Number: H He sees Dr. Metz sent LM for pt-Per Dr. Metz, pt can be off his Coumadin 5 days prior to his procedure. Normal [facility] AMB GI Physician Progress No irma 10-26-2022 AMB GI Physician Progress Note Chief Complaint Abdominal pain History of Present Illness 77-year-old male with recurrent history of choledocholithiasis last ERCP was done a year ago in [place] Patient had admission in hospital in [place] with fever and chills Patient has had [...] 14:56:00) Peripheral Pulse Rate: 63 bpm (10/26/22 14:56:) Mean Arterial Pressure: 114 mmHg (10/26/22 14:56:) Height/Length Measured: 183 cm (10/26/22 14:56:00) Weight Measured: 63 kg (10/26/22:56:00) Body Mass Index Measured: 18.81 kg/m2 (10/26/22:56:00) Weight Measured - lbs2: 139 lb (10/26/22:56:00) Height/Length Measured - in2: 72 in (10/26/22:56:) Body Mass Index Measured English2: 18.85 kg/m2 (10/26/22:56:00) BSA: 1.79 m2 (10/26/22 14:56:00) Ht/Wt Measurement Refused by Patient?2: No (10/26/22:56:) Depression Screening Scores Initial Depression Screen Score: 0 (10/26/22 14:56:) Fall Risk Assessment Is the patient ambulatory [...] Est Pt Mod MDM / 30-39 min 54903, 10/26/2022 16:13:00 EST, Abdominal pain / Pancreatic cyst MR CP, 10/26/2022, Routine, PAIN, Abdominal pain / Pancreatic cyst 2. Pancreatic cyst K86.2 Pancreatic cyst stable very low CEA levels suggestive of simple serous cyst versus inflammatory cyst. Asymptomatic Ordered: AMB Follow - Up Appt Amb, 10/26/2022 16:13:00 EST, 4 weeks AMB Office/Outpt Est Pt Mod MDM / 30-39 min 05436, 10/26/2022 16:13:00 EST, Abdominal pain / Pancreatic [...] extended release, 325 mg= 1 caps, ORAL, [id number] trazodone = Desyrel, 50 mg, ORAL, BID [...] Care Team Primary Care Physician AUGUSTINE METZ [phone] Attending Physician PUJA HOLBROOK MD [phone] . Health Maintenance Pending (in the next year) There are no current recommendations pending Satisfied (in the past 1 year) There are no satisfied recommendations within the defined date range Normal [facility] Comprehensive Intake - Texto n 10-26-2022 [...] in, 183 cm) Body Mass Index Measured Honduran : 18.85 kg/m2 BSA Honduran : 1.79 m2 Ht/Wt Measurement Refused by [...] risk situation (congregated living, hemodialysis, infusion clinic, senior care, assisted living, penitentiary, homeless senior living, etc.)? : No Lori [...] Abnormal LFTs (liver function tests) (SNOMED CT :972309229 ) Name of Problem: Abnormal LFTs (liver function tests) ; Recorder: Blanca Bazzi; Confirmation: Confirmed ; Classification: Medical ; Code: [id number] ; Contributor System: PowerChart ; Last Updated: 07/01/2021 12:43 EDT ; Life Cycle Date: 07/01/2021 ; Life Cycle Status: Active ; Vocabulary: SNOMED CT Arthritis (SNOMED CT :2448678 ) Name of Problem: Arthritis ; Recorder: Blanca Bazzi; Confirmation: Confirmed ; Classification: Medical ; Code: 7764398 ; Contributor System: PowerChart ; Last Updated: 07/01/2021 12:43 EDT ; Life Cycle Date: 07/01/2021 ; Life Cycle Status: Active ; Vocabulary: SNOMED CT Choledocholithiasis (SNOMED CT :962329494 ) Name of Problem: Choledocholithiasis ; Recorder: PUJA HOLBROOK MD; Confirmation: Confirmed ; Classification: Medical ; Code: 196697196 ; Contributor System: PowerChart ; Last Updated: 07/01/2021 13:27 EDT ; Life Cycle Date: 07/01/2021 ; Life Cycle Status: Active ; Responsible Provider: PUJA HOLBROOK MD; Vocabulary: SNOMED CT Diabetes (SNOMED CT :321953362 ) Name of Problem: Diabetes ; Recorder: Blanca Bazzi; Confirmation: Confirmed ; Classification: Medical ; Code: [id number] ; Contributor System: [place] ; Last Updated: 07/01/2021 12:43 EDT ; Life Cycle Date: 07/01/2021 ; Life Cycle Status: Active ; Vocabulary: SNOMED CT Gallbladder disease (SNOMED CT :510340411 ) Name of Problem: Gallbladder disease ; Recorder: Blanca Bazzi; Confirmation: Confirmed ; Classification: Medical ; Code: 993111728 ; Contributor System: FiosChart ; Last Updated: 07/01/2021 12:44 EDT ; Life Cycle Date: 07/01/2021 ; Life Cycle Status: Active ; Vocabulary: SNOMED CT GERD (gastroesophageal reflux disease) (SNOMED CT :385876171 ) Name of Problem: GERD (gastroesophageal reflux disease) ; Recorder: Blanca Bazzi; Confirmation: Confirmed ; Classification: Medical ; Code: 190038055 ; Contributor System: FiosChart ; Last Updated: 07/01/2021 12:44 EDT ; Life Cycle Date: 07/01/2021 ; Life Cycle Status: Active ; Vocabulary: SNOMED CT Hypertension (SNOMED CT :5712910733 ) Name of Problem: Hypertension ; Recorder: Blanca Bazzi; Confirmation: Confirmed ; Classification: Medical ; Code: [id number] ; Contributor System: [place] ; Last Updated: 07/01/2021 12:44 EDT ; Life Cycle Date: 07/01/2021 ; Life Cycle Status: Active ; Vocabulary: SNOMED CT Irregular heart rhythm (SNOMED CT :157666160 ) Name of Problem: Irregular heart rhythm ; Recorder: Balnca Bazzi; Confirmation: Confirmed ; Classification: Medical (more content not included)... Normal [facility] Provider Letter - Ambulatory on 10-26-2022 Provider Letter - Ambulatory AUGUSTINE METZ, [facility] [place] [address] RE: TITO GONCALVES 10/26/2022 Dear AUGUSTINE METZ [...] - (10/26/2022) *.AMB Office Visit Note Normal [facility] Phone Msgon 10-22-2022 Phone Msg - [...] other dilemma is he is leaving for [place] on 11/13 for 6 weeks. From: Caren [...] him until December. He has moved to [facility] and Tito would be considered a new patient. His daughter did not feel he was acutely ill and that he can wait for the appointment next Tuesday. Normal [facility] GLYCOHEMOGLOBIN A1Con 2022 ADA RECOMMENDATION SEE BELOW Normal [facility] Comment on above: Result Comment: ADA RECOMMENDED LIMIT 4.0 - 6.0 ADA THERAPEUTIC TARGET < 7.0 ACTION SUGGESTED > 7.0 Performed By: #### A 1C ####[facility] [address] [place], [place] [address]Mk. Arjun Menjivar Glucose [Mass/Vol] 163 mg/dL Normal [facility] Comment on above: Performed By: #### A 1C ####[facility] [address] [place], [place] [address]Sa. Arjun Menjivar HbA1c (Bld) [Mass fraction] 7.3 % Critically high 4.5-6.2 [facility] Comment on above: Performed By: #### A 1C ####[facility] [address] [place], [place] [address]Eq. Arjun Menjivar Dermatopathologyon 2 Dermatopathology Name: TITO GONCALVES Pathologist: KRISTEN OCONNOR MD Date of Procedure: 09/07/2022 Date Received: 09/07/2022 Date Reported 09/08/2022 Submitting Physician: MACARIO BUI MD, Location: [facility] Copy To/Referring/Attending: MD SABRA SIMS FINAL DIAGNOSIS 3 SLIDES, [facility] #[id number] (BX: 08/03/2022) A. 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 B. SKIN, RIGHT RASTAFARI, SHAVE BIOPSY: MELANOMA IN SITU, PRESENT ON [...] M.D. CANCER SUMMARY REPORT A. 3 SLIDES, [facility] #[id number] (BX: 08/03/2022): SPECIMEN Procedure: Biopsy, shave Specimen Laterality: Right TUMOR Tumor Site: Skin of other and unspecified parts of face: Right mandaeism Histologic Type: Melanoma in situ, lentigo maligna [...] ADDITIONAL FINDINGS Additional Findings: None ADDITIONAL TESTING Paraoptometric Blocks: Normal Block: None Tumor Block: A1 Electronically Signed Out By KRISTEN OCONNOR MD/LEANDRO Diagnostic interpretation performed at [facility] [address] [facility] [address] Microscopic Description: A. Microscopic examination reveals nests [...] OTHER Specimens Submitted As: A: 3 SLIDES, [facility] #[id number] (BX: 08/03/2022) Gross Description: Received for consultation from [facility] are three slides labeled [id number] (BX: 08/03/2022) along with the corresponding pathology report. Slide/Block Description 3 SLIDES, [id number]. Keep Slides: N Slides Returned: N Personal Consult: N Normal [facility] Comment on above: Performed By: #### D #### Dermatopathology GLYCOHEMOGLOBIN A1Con 2021 ADA RECOMMENDATION SEE BELOW Normal [facility] Comment on above: Result Comment: ADA RECOMMENDED LIMIT 4.0 - 6.0 ADA THERAPEUTIC TARGET < 7.0 ACTION SUGGESTED > 7.0 Performed By: #### A 1C ####[facility] [address] [place], [place] [address]Eq. Arjun Menjivar Glucose [Mass/Vol] 151 mg/dL Normal [facility] Comment on above: Performed By: #### A 1C ####[facility] [address] [place], [place] [address]Il. Ajrun Menjivar HbA1c (Bld) [Mass fraction] 6.9 % Critically high 4.5-6.2 [facility] Comment on above: Performed By: #### A 1C ####[facility] [address] [place], [place] [address]Gk. Arjun Menjivar XR ESOPHAGUSon 06-28-2022 XR ESOPHAGUS [...] by: CARMEN PABLO Date: 2022-06-28 14:07 Normal [facility] XR MODIFIED BARIUM SWALLOWon 06-15-2022 XR [...] findings and recommendations. Electronically authenticated by: SANTOS VANDA Date: 2022-06-15 11:11 Normal [facility] Ambulatory Visit [...] Follow Up with GAGE UMANZOR, Mc Blackman, URL When: Comments: PRN Where: [facility] [address], [place] [phone] Medications What How Much When Instructions Unchanged [...] the si (more content not included)... Normal [facility] Patient Educationon 05-03-20 Patient Education Urology [...] Follow these instructions at home: ? Take dgtz-xnt-lifvaam and prescription medicines only as told by [...] d (more content not included)... Normal [facility] Urology Office/Clinic Noteon 05-03-2022 Urology Office/Clinic Note Chief Complaint 1 year with KUB HPI Staff Tito is here today for a 1 year follow up with a KUB. KUB done on 04/26/22 at [facility] impression showed no appreciable urinary tract calculi. [...] Mc Blackman, URL [facility] [address] [place] [address] [phone] Additional Instructions: PRN Patient Education Benign Prostatic Hyperplasia Jerri Julio, personally scribed for Dr. Almonte on 05/03/2022 09:24:40. . Documentation recorded by the Jerri ross Lyles, accurately reflects the services(s) I performed and decisions made by me. Authenticated by Dr. Almnote on 05/03/2022 09:26:33. Problem List/Past Medical History [...] 100 in lifetim (more content not included)... [facility] Comment on above: Result Comment: Elec tronically Signed By: Mc ALMONTE MD\.br\Date and Time Signed: 05/03/22 09:26 EDT\.br\Electronically Co-Signed By: Jerri Lyles\Date and Time Co-Signed: 05/03/22 09:24 EDT RAD - MISCon 04-28-2022 RAD - MISC [id number] [facility] XR KUB 1 VIEWon 04-27-2022 XR KUB [...] by: SANTOS DC Date: 2022-04-27 06:18 Normal [facility] GLYCOHEMOGLOBIN A1Con 2021 ADA RECOMMENDATION SEE BELOW Normal [facility] Comment on above: Result Comment: ADA RECOMMENDED LIMIT 4.0 - 6.0 ADA THERAPEUTIC TARGET < 7.0 ACTION SUGGESTED > 7.0 Performed By: #### A 1C #### [facility] [address] [address] [address] Arjun Menjivar Glucose [Mass/Vol] 126 mg/dL Normal [facility] Comment on above: Performed By: #### A 1C #### [facility] [address] [address] [address] Arjun Menjivar HbA1c (Bld) [Mass fraction] 6.0 % Normal 4.5-6.2 [facility] Comment on above: Performed By: #### A 1C #### [facility] [address] [address] [address] Arjun Menjivar IRON AND TIBCon 04-07-2022 % SATURATION 25.4 % Normal [facility] Comment on above: Performed By: #### F ETIBC, B12FOL #### [facility] [address] [address] [address] Arjun Menjivar Iron [Mass/Vol] 62.0 ug/dL Critically low 65.0-175.0 [facility] Comment on above: Performed By: #### F ETIBC, B12FOL #### [facility] [address] [address] [address] Arjun Menjivar TIBC DIRECT 244.0 ug/dL Critically low 250.0-450.0 [facility] Comment on above: Performed By: #### F ETIBC, B12FOL #### [facility] [address] [address] [address] Arjun Menjivar VIT B12 AND FOLATEon 022 Cobalamin (Vitamin B12) [Mass/Vol] 597.0 pg/mL Normal 193.0-986.0 [facility] Comment on above: Performed By: #### F ETIBC, B12FOL #### [facility] [address] [address] [address] Arjun Menjivar FOLATE 21.50 ng/mL Normal 8.60-58.90 [facility] Comment on above: Performed By: #### F ETIBC, B12FOL #### [facility] [address] [place] [address] Dr. Arjun Menjivar CBCon 03-16-2022 ABSOLUTE BAS 0.0 10*3/uL Normal 0.0-0.2 [facility] Comment on above: Result Comment: Test ing performed at [place] [address] Performed By: #### R ENF, ACBC, PT #### [place] [address] ABSOLUTE EOS 0.00 10*3/uL Normal 0.0-0.7 [facility] Comment on above: Performed By: #### R ENF, ACBC, PT #### [place] [address] ABSOLUTE NEUTROPHIL COUNT 8.5 10*3/uL High 1.4-6.5 [facility] Comment on above: Performed By: #### R ENF, ACBC, PT #### [place] [address] Basophils/100 WBC (Bld) 0.1 % Normal 0.0-2.0 [facility] Comment on above: Performed By: #### R ENF, ACBC, PT #### [place] [address] DTYPE AUTO DIFF Normal [facility] Comment on above: Performed By: #### R ENF, ACBC, PT #### Testing performed at [address] [address] Eosinophils/100 WBC (Bld) 0.0 % Normal 0.0-11.0 [facility] Comment on above: Performed By: #### R NICKFLUMABC, PT #### Testing performed at [address] [address] Lymphocytes (Bld) [#/Vol] 0.60 10*3/uL Low 1.2-3.4 [facility] Comment on above: Performed By: #### R ENLUMA KnowlesBC, PT #### Testing performed at [address] [address] Lymphocytes/100 WBC (Bld) 6.4 % Low 20.0-55.0 [facility] Comment on above: Performed By: #### R ENLUMA KnowlesBC, PT #### Testing performed at [address] [address] Monocytes (Bld) [#/Vol] 0.4 10*3/uL Normal 0.0-0.7 [facility] Comment on above: Performed By: #### R HUGH MAGDALENO, PT #### Testing performed at [address] [address] Monocytes/100 WBC (Bld) 4.1 % Normal 0.0-10.0 [facility] Comment on above: Performed By: #### R ENFLUMABC, PT #### Testing performed at [address] [address] Neutrophils/100 WBC (Bld) 89.4 % High 37.0-75.0 [facility] Comment on above: Performed By: #### R LUMA MAGDALENOBC, PT #### Testing performed at [address] [address] Erythrocyte distribution width (RBC) [Ratio] 17.0 % High 11.5-14.5 [facility] Comment on above: Performed By: #### R ENF ACBC, PT #### Testing performed at [address] [place] [address] Hematocrit (Bld) [Volume fraction] 33.9 % Low 42.0-52.0 [facility] Comment on above: Performed By: #### R LUMA MAGDALENOBC, PT #### [place] [address] Hemoglobin (Bld) [Mass/Vol] 11.7 g/dL Low 14.0-18.0 [facility] Comment on above: Performed By: #### R ENEleni ACBC, PT #### [place] [address] MCH (RBC) [Entitic mass] 30.0 pg Normal 26.0-35.0 [facility] Comment on above: Performed By: #### R ENLUMA KnowlesBC, PT #### [place] [address] MCHC (RBC) [Mass/Vol] 34.5 g/dL Normal 27.0-37.0 [facility] Comment on above: Performed By: #### R RASTA ACBC, PT #### [place] [address] MCV (RBC) [Entitic vol] 87.2 fL Normal 80.0-100.0 [facility] Comment on above: Performed By: #### R ENLUMA KnowlesBC, PT #### [place] [address] Platelet mean volume (Bld) [Entitic vol] 9.2 fL Normal 7.4-11.0 [facility] Comment on above: Performed By: #### R ENF ACBC, PT #### [place] [address] Platelets (Bld) [#/Vol] 154 10*3/uL Normal 130.0-400.0 [facility] Comment on above: Performed By: #### R ENF ACBC, PT #### [place] [address] RBC (Bld) [#/Vol] 3.89 10*6/uL Low 4.0-6.1 [facility] Comment on above: Performed By: #### R HUGH MAGDALENO, PT #### Testing performed at [address] [address] WBC (Bld) [#/Vol] 9.5 10*3/uL Normal 3.6-11.0 [facility] Comment on above: Performed By: #### R HUGH MAGDALENO, PT #### Testing performed at [address] [address] CBC, EDIF, PLATELETon 2021 ABSOLUTE BASOPHIL COUNT 0.0 10*3/uL 0.0 - 0.2 10*3/uL [facility] Comment on above: Testing performed at [place], [place] [address] Basophils/100 WBC (Bld) 0.1 % 0.0 - 2.0 % [facility] Differential cell count method Nom (Bld) AUTO DIFF % [facility] Eosinophils (Bld) [#/Vol] 0.00 10*3/uL 0.0 - 0.7 10*3/uL [facility] Eosinophils/100 WBC (Bld) 0.0 % 0.0 - 11.0 % [facility] Erythrocyte distribution width (RBC) [Ratio] 17.0 % High 11.5 - 14.5 % [facility] Hematocrit (Bld) [Volume fraction] 33.9 % Low 42.0 - 52.0 % [facility] Hemoglobin (Bld) [Mass/Vol] 11.7 g/dL Low [facility] Interpretation and review of laboratory results Abnormal [facility] Lymphocytes (Bld) [#/Vol] 0.60 10*3/uL Low 1.2 - 3.4 10*3/uL [facility] Lymphocytes/100 WBC (Bld) 6.4 % Low 20.0 - 55.0 % [facility] MCH (RBC) [Entitic mass] 30.0 pg 26.0 - 35.0 PG [facility] MCHC (RBC) [Mass/Vol] 34.5 g/dL [facility] MCV (RBC) [Entitic vol] 87.2 fL [facility] Monocytes (Bld) [#/Vol] 0.4 10*3/uL 0.0 - 0.7 10*3/uL [facility] Monocytes/100 WBC (Bld) 4.1 % 0.0 - 10.0 % [facility] Neutrophils (Bld) [#/Vol] 8.5 10*3/uL High 1.4 - 6.5 10*3/uL [facility] Neutrophils/100 WBC (Bld) 89.4 % High 37.0 - 75.0 % [facility] Platelet mean volume (Bld) [Entitic vol] 9.2 fL [facility] Platelets (Bld) [#/Vol] 154 10*3/uL 130.0 - 400.0 10*3/uL [facility] RBC (Bld) [#/Vol] 3.89 10*6/uL Low 4.0 - 6.1 10*6/uL [facility] WBC (Bld) [#/Vol] 9.5 10*3/uL 3.6 - 11.0 10*3/uL [facility] PROTIMEon 03-16-2022 INR Coag (PPP) [Relative time] 1.37 {INR} High 0.85-1.10 [facility] Comment on above: Result Comment: 2.0-3.0 THERAPEUTIC RANGE 2.5-3.5 MECHANICAL VALVE RANGE Testing performed at [place] [address] Performed By: #### R ENF, ACBC, PT #### Testing performed at [facility] [address] [place] [address] PT Coag (PPP) [Time] 16.9 s High 11.8-14.4 [facility] Comment on above: Performed By: #### R ENF, ACBC, PT #### Testing performed at [facility] [address] [place] [address] PROTIME-INRon 03-16-2022 INR Coag (PPP) [Relative time] 1.37 {INR} High [facility] Comment on above: 2.0-3.0 THERAPEUTIC RANGE 2.5-3.5 MECHANICAL VALVE RANGE Testing performed at [place] [address] Interpretation and review of laboratory results Abnormal [facility] PT Coag (PPP) [Time] 16.9 s High [facility] RENAL FUNCTION PANELon 03-16 Albumin [Mass/Vol] 3.3 G/dl Low 3.5 - 5.0 G/dl [facility] Calcium [Mass/Vol] 7.9 mg/dL Low [facility] Chloride [Moles/Vol] 106 mmol/L [facility] Comment on above: Please note: Triglyc eride levels of 600mg/dL or higher may positively bias chloride results by approximately 2.1 mmol CO2 [Moles/Vol] 23 mmol/L [facility] Creatinine [Mass/Vol] 1.20 mg/dL [facility] GFR COMMENT Average GFR for 70+ years old = 75. [facility] Comment on above: Chronic Kidney disea se, GFR = <60. Kidney failure, GFR = <15. The GFR estimate is not adjusted for extreme body surface area or acute process, nor has it been validated for women or ethnic groups other than and . Testing performed at [place] [id number] GFR/1.73 sq M.predicted among blacks MDRD (S/P/Bld) [Vol rate/Area] 76 mL/min/{1.73_m2} ml/min/1.73 sq.m [facility] GFR/1.73 sq M.predicted among non-blacks MDRD (S/P/Bld) [Vol rate/Area] 63 mL/min/{1.73_m2} ml/min/1.73 sq.m [facility] Glucose post fast [Mass/Vol] 230 mg/dL High [facility] Comment on above: NORMAL <100 mg/dL PREDIABETES 101-126 mg/dL DIABETES 126 mg/dL or higher Interpretation and review of laboratory results Abnormal [facility] Phosphate [Mass/Vol] 2.9 mg/dL [facility] Potassium [Moles/Vol] 4.5 mmol/L [facility] Sodium [Moles/Vol] 136 mmol/L Low [facility] Urea nitrogen [Mass/Vol] 22 mg/dL High [facility] RENAL PANEL,FASTINGon 2021 ALBUMIN 3.3 G/dl Low 3.5-5.0 [facility] Comment on above: Performed By: #### R HUGH MAGDALENO, PT #### [place] [address] Calcium [Mass/Vol] 7.9 mg/dL Low 8.4-10.2 [facility] Comment on above: Performed By: #### LUMA FARIABC, PT #### [place] [address] Chloride [Moles/Vol] 106 mmol/L Normal 98-107 [facility] Comment on above: Result Comment: Alla noland note: Triglyceride levels of 600mg/dL or higher may positively bias chloride results by approximately 2.1 mmol Performed By: #### HUGH FARIA, PT #### [place] [address] CO2 [Moles/Vol] 23 mmol/L Normal 22-30 [facility] Comment on above: Performed By: #### HUGH FARIA, PT #### [place] [address] Creatinine [Mass/Vol] 1.20 mg/dL Normal 0.7-1.2 [facility] Comment on above: Performed By: #### HUGH FARIA, PT #### Testing performed at [place] [id number] EST. GFR, 76 ml/min/1.73sq.m [facility] Comment on above: Performed By: #### HUGH FARIA, PT #### Testing performed at [place] [id number] EST. GFR,Non 63 ml/min/1.73sq.m [facility] Comment on above: Performed By: #### HUGH FARIA, PT #### [place] [address] GFR Information Average GFR for 70+ years old = 75. Normal [facility] Comment on above: Result Comment: Strategic Partnership Manager david Kidney disease, GFR = <60. Kidney failure, GFR = <15. The GFR estimate is not adjusted for extreme body surface area or acute process, nor has it been validated for women or ethnic groups other than and . Testing performed at [place] [address] Performed By: #### HUGH FARIA, PT #### [place] [address] Glucose [Mass/Vol] 230 mg/dL High 70-100 [facility] Comment on above: Result Comment: NORMAL <100 mg/dL PREDIABETES 101-126 mg/dL DIABETES 126 mg/dL or higher Performed By: #### HUGH FARIA, PT #### [place] [address] PHOSPHOROUS 2.9 MG/DL Normal 2.5-4.5 [facility] Comment on above: Performed By: #### HUGH FARIA, PT #### Testing performed at [place] [id number] Potassium [Moles/Vol] 4.5 mmol/L Normal 3.5-5.1 [facility] Comment on above: Performed By: #### HUGH FARIA, PT #### Testing performed at [place] [id number] Sodium [Moles/Vol] 136 mmol/L Low 137-145 [facility] Comment on above: Performed By: #### HUGH FARIA, PT #### [place] [address] Urea nitrogen [Mass/Vol] 22 mg/dL High 7-20 [facility] Comment on above: Performed By: #### HUGH FARIA, PT #### Testing performed at [place] [id number] GLUCOSE (POC DEVICE)on 03-15 GLUCOSE, POINT OF CARE 118 High [facility] Interpretation and review of laboratory results Abnormal [facility] [id number] [facility] Comment on above: Testing performed at [address] MRSA SCREENon 03-15-2022 MRSA DNA HERIBERTO+probe Ql (Unsp spec) Not detected Normal NOT DETECTED [facility] Comment on above: Performed By: #### M RSAST #### [place] [address] STAPH AUREUS SCREEN Not detected Normal NOT DETECTED [facility] Comment on above: Result Comment: Test ing performed at [place] [address] Performed By: #### M RSAST #### [place] [address] NOVEL CORONAVIRUSon 03-15-20 NARRATIVE This test was perfor med using isothermal HERIBERTO and has been approved as Emergency Use Authorization (EUA) for the qualitative detection [id number] nucleic acid. Normal [facility] Comment on above: Result Comment: Test ing performed at [place] [address] Performed By: #### C OVID #### [place] [address] SARS-CoV-2 (COVID-19) RNA HERIBERTO+probe Ql (Unsp spec) Not detected Normal NOT DETECTED [facility] Comment on above: Result Comment: Nega [...] #### C OVID #### [place] [address] NOVEL CORONAVIRUS LAB 1 - NA SOPHARYNGEALon 03-15-2022 NARRATIVE -1 This test was perfor med using isothermal HERIBERTO and has been approved as Emergency Use Authorization (EUA) for the qualitative detection [id number] nucleic acid. [facility] Comment on above: Testing performed at [place] [address] SARS-CoV-2 (COVID-19) RNA HERIBERTO+probe Ql (Unsp spec) Not detected NOT DETECTED [facility] Comment on above: Negative results do [...] patient is critically ill or clinically deteriorating. [facility] POCT GLUCOSEon 03-15-2022 Glucose [Mass/Vol] 118 mg/dL High 70-100 [facility] Comment on above: Performed By: #### P OCGLU #### [place] [address] NEONATAL NURSE [id number] Normal [facility] Comment on above: Result Comment: Test ing performed at [place] [address] Performed By: #### P OCGLU #### [place] [address] PROTIMEon 03-15-2022 INR Coag (PPP) [Relative time] 1.36 {INR} High 0.85-1.10 [facility] Comment on above: Result Comment: 2.0-3.0 THERAPEUTIC RANGE 2.5-3.5 MECHANICAL VALVE RANGE Testing performed at [place] [address] Performed By: #### P T #### [place] [address] PT Coag (PPP) [Time] 16.8 s High 11.8-14.4 [facility] Comment on above: Performed By: #### P T #### [place] [address] PROTIME-INRon 03-15-2022 INR Coag (PPP) [Relative time] 1.36 {INR} High [facility] Comment on above: 2.0-3.0 THERAPEUTIC RANGE 2.5-3.5 MECHANICAL VALVE RANGE Testing performed at [place] [address] Interpretation and review of laboratory results Abnormal [facility] PT Coag (PPP) [Time] 16.8 s [facility] PTTon 03-15-2022 aPTT Coag (Bld) [Time] 28.7 s Normal 22.4-34.7 [facility] Comment on above: Result Comment: CARDIAC AND PE/DVT THERAPUTIC RANGE 69-97 SEC VASCULAR/THREATENED LIMB THERAPUTIC RANGE 80-112 SEC Testing performed at [place] [address] Performed By: #### P TT #### [place] [address] aPTT Coag (Bld) [Time] 28.7 s [facility] Comment on above: CARDIAC AND PE/DVT THERAPUTIC RANGE 69-97 SEC VASCULAR/THREATENED LIMB THERAPUTIC RANGE 80-112 SEC Testing performed at [address] SCREEN: MRSA ONLY, NARES (IS OLATION SCREEN)on 03-15-2022 MRSA isol Org specific cx Ql (Nose) Not detected NOT DETECTED [facility] STAPHYOCOCCUS AUREUS BY PCR Not detected NOT DETECTED [facility] Comment on above: Testing performed at [address] TYPE AND SCREEN CROSSMATCH C ONVERTIBLEon 03-15-2022 TYPE AND SCREEN CROSSMATCH CONVERTIBLE WORKUP EXPIRES 03/18/2022,2359 ABO/RH(D) A POSITIVE ANTIBODY SCREEN NEGATIVE ARM BAND NUMBER [id number] Testing performed at [place] [address] Normal [facility] Comment on above: Performed By: #### T SCC #### [place] [address] TYPE AND SCREEN - POSSIBLE T RANSFUSIONon 03-15-2022 ABO and Rh group Nom (Bld ) Positive [facility] ARM BAND NUMBER [id number] [facility] ARM BAND NUMBER Testing performed at [facility], [place], [place] [address] [facility] Blood group antibody screen Ql Negative [facility] 03/18/2022,2359 [facility] XR KNEE RIGHT 2 VIEWSon 02-25 XR KNEE RIGHT 2 VIEWS EXAM: XR KNEE RIGHT 2 VIEWS HISTORY: COMPARISON: FINDINGS: Joint replacement is seen with overall preservation of normal alignment. No abnormal lucency is seen around the hardware. IMPRESSION: Joint replacement without hardware complication Normal [facility] XR Knee - right 2 Viewson [...] IMPRESSION IMPRESSION: Joint replacement without hardware complication [facility] Radiology Study observation (narrative) [facility] XR Knee - right 2 ViewsOrder ed By: Abel Resendiz on 03-15-2022 [facility] Work Phone: Operative Reporton 9 Operative Report MR#: [id number] [facility] Pt. Name: Tito Goncalves Room #: CC [...] form. The patient was brought to the label remover and a transesophageal echocardiogram was performed under [...] Flores MD Date Trans: 06/14/2019 12:23 A/asad [id number] cc: Augustine Metz D.O. [address] [place] [id number] Ryan Cardenas M.D. [address] [place] [address] [facility] Clinic Repor ton 06-21-2017 Health [...] questions or concerns in the meantime. Normal [facility] Vital Signs Date Time Vital Sign Value Performing Clinician Facility 04-04-2024 11:040 Body height 172.72 cm DO Augustine Ball Work Phone: [facility] 04-04-2024 11:040 Body mass index (BMI) [Ratio] 36.6 kg/m2 DO Augustine Ball Work Phone: [facility] 04-04-2024 11:19040 Body weight 109.37 kg DO Augustine Ball Work Phone: [facility] 04-04-2024 11:19040 Diastolic blood pressure 77 mm[Hg] DO Augustine Ball Work Phone: [facility] 04-04-2024 11:190400 Heart rate 55 /min DO Augustine Ball Work Phone: [facility] 04-04-2024 11:19-0400 Respiratory rate 12 /min DO Augustine Ball Work Phone: [facility] 04-04-2024 11:190400 Systolic blood pressure 151 mm[Hg] DO Augustine Ball Work Phone: [facility] 02-27-2024 09:0400 Body height 172.72 cm DO Augustine Ball Work Phone: [facility] 02-27-2024 09:-0400 Body mass index (BMI) [Ratio] 36.7 kg/m2 DO Augustine Ball Work Phone: [facility] 02-27-2024 09:0400 Body weight 109.48 kg DO Augustine Ball Work Phone: [facility] 02-27-2024 09:21-0400 Diastolic blood pressure 72 mm[Hg] DO Augustine Ball Work Phone: [facility] 02-27-2024 09:21-0400 Heart rate 60 /min DO Augustine Ball Work Phone: [facility] 02-27-2024 09:21-0400 Respiratory rate 12 /min DO Augustine Ball Work Phone: [facility] 02-27-2024 09:21-0400 Systolic blood pressure 152 mm[Hg] DO Augustine Ball Work Phone: [facility] 02-24-2024 17:02-0400 Diastolic blood pressure 70 mm[Hg] DO Augustine Ball Work Phone: [facility] 02-24-2024 17:02-0400 Heart rate 55 /min DO Augustine Ball Work Phone: [facility] 02-24-2024 17:02-0400 Respiratory rate 16 /min DO Augustine Ball Work Phone: [facility] 02-24-2024 17:02-0400 SaO2% (BldA) [Mass fraction] 97 % DO Augustine Ball Work Phone: [facility] 02-24-2024 17:02-0400 Systolic blood pressure 132 mm[Hg] DO Augustine Ball Work Phone: [facility] 02-24-2024 16:20-0400 Body temperature 98 [degF] DO Augustine Ball Work Phone: [facility] 02-24-2024 15:55-0400 Inhaled oxygen flow rate 8 L/min DO Augustine Ball Work Phone: [facility] 02-24-2024 15:38-0400 Body height 182.88 cm DO Augustine Ball Work Phone: [facility] 02-24-2024 15:38-0400 Body mass index (BMI) [Ratio] 32.5 kg/m2 DO Augustine Ball Work Phone: [facility] 02-24-2024 15:38-0400 Body weight 109 kg DO Augustine Ball Work Phone: [facility] 01-31-2024 15:34-0400 Body height 181.61 cm [facility] 01-31-2024 15:34-0400 Body mass index (BMI) [Ratio] 34.5 kg/m2 [facility] 01-31-2024 15:34-0400 Body weight 114.07 kg [facility] 01-31-2024 15:34-0400 Diastolic blood pressure 79 mm[Hg] [facility] 01-31-2024 15:34-0400 Heart rate 53 /min [facility] 01-31-2024 15:34-0400 Respiratory rate 12 /min [facility] 01-31-2024 15:34-0400 Systolic blood pressure 130 mm[Hg] [facility] 10-31-2023 10:30-0500 Body height Augustine Ball Other [facility] [employer] Other 10-31-2023 10:30-0500 Body mass index (BMI) [Ratio] 33.47 kg/m2 Augustine Ball Other [facility] [employer] Other 10-31-2023 10:30-0500 Body weight 110.41 kg Augustine Ball Other [facility] [employer] Other 10-31-2023 10:30-0500 Diastolic blood pressure 68 mm[Hg] Augustine Ball Other [facility] [employer] Other 10-31-2023 10:30-0500 Respiratory rate 12 /min Augustine Ball Other [facility] [employer] Other 10-31-2023 10:30-0500 Systolic blood pressure 122 mm[Hg] Augustine Ball Other [facility] [employer] Other 03-16-2023 11:19-0400 Body height 182.9 cm Azul Virginie SHOT POLISHER AND INSPECTOR-RAILWAY TRACK WORKER Work Phone: [employer] 03-16-2023 11:19-0400 Body mass index (BMI) [Ratio] 33.23 kg/m2 Azul Rachel SHOT POLISHER AND INSPECTOR-RAILWAY TRACK WORKER Work Phone: [employer] 03-16-2023 11:19-0400 Body temperature 97.2 [degF] Azul Rachel SHOT POLISHER AND INSPECTOR-RAILWAY TRACK WORKER Work Phone: [employer] 03-16-2023 11:19-0400 Body weight 111.13 kg Azul Rachel SHOT POLISHER AND INSPECTOR-RAILWAY TRACK WORKER Work Phone: [employer] 01-05-2023 12:00-0400 Body height Augustine Ball Other [employer] Other 01-05-2023 12:00-0400 Body mass index (BMI) [Ratio] 33.36 kg/m2 Augustine Ball Other [employer] Other 01-05-2023 12:00-0400 Body weight 110.04 kg Augustine Ball Other [employer] [facility] Other 01-05-2023 12:00-0400 Diastolic blood pressure 70 mm[Hg] Augustine Ball Other [employer] Other 01-05-2023 12:00-0400 Respiratory rate 12 /min Augustine Ball Other [facility] Other 01-05-2023 12:00-0400 Systolic blood pressure 118 mm[Hg] Augustine Ball Other [facility] [facility] Other 10-04-2022 12:00-0500 Body height Augustine Ball Other [facility] [facility] Other 10-04-2022 12:00-0500 Body mass index (BMI) [Ratio] 33.44 kg/m2 Augustine Ball Other [facility] [facility] Other 10-04-2022 12:00-0500 Body weight 110.32 kg Augustine Ball Other [facility] [facility] Other 10-04-2022 12:00-0500 Diastolic blood pressure 78 mm[Hg] Augustine Ball Other [facility] [facility] Other 10-04-2022 12:00-0500 Respiratory rate 12 /min Augustine Ball Other [facility] [facility] Other 10-04-2022 12:00-0500 Systolic blood pressure 128 mm[Hg] Augustine Ball Other [facility] [facility] Other 10-01-2022 08:30-0500 Diastolic blood pressure 77 mm[Hg] [facility] Ro[facility] 10-01-2022 08:30-0500 Systolic blood pressure 132 mm[Hg] [facility] 07-08-2022 11:47-0400 Body height 182.9 cm Pastor Bedoya MD Work Phone: [facility] 07-08-2022 11:47-0400 Body mass index (BMI) [Ratio] 33.23 kg/m2 Pastor Bedoya MD Work Phone: [facility] 07-08-2022 11:47-0400 Body weight 111.13 kg Pastor Bedoya MD Work Phone: [facility] 05-03-2022 08:48-0400 Blood Pressure Location Mc [facility] 05-03-2022 08:48-0400 Diastolic blood pressure 67 mm[Hg] [facility] 05-03-2022 08:48-0400 Heart rate 70 /min Mc ALMONTE [facility] 05-03-2022 08:48-0400 Respiratory rate 16 /min Mc ALMONTE [facility] 05-03-2022 08:48-0400 Systolic blood pressure 120 mm[Hg] Mc ALMON[facility] 04-08-2022 09:49-0400 Body height 182.9 cm Azul Rachel APRN-RAILWAY TRACK WORKER Work Phone: [facility] 04-08-2022 09:49-0400 Body mass index (BMI) [Ratio] 33.23 kg/m2 Azul Rachel APRN-RAILWAY TRACK WORKER Work Phone: [facility] 04-08-2022 09:49-0400 Body temperature 96.91 [degF] Azul Rachel APRN-RAILWAY TRACK WORKER Work Phone: [facility] 04-08-2022 09:49-0400 Body weight 111.13 kg Azul Rachel APRN-RAILWAY TRACK WORKER Work Phone: [facility] 03-16-2022 11:00-0400 Body temperature 97.7 [degF] Pastor Bedoya MD Work Phone: [facility] 03-16-2022 11:00-0400 Diastolic blood pressure 70 mm[Hg] Pastor Bedoya MD Work Phone: [facility] 03-16-2022 11:00-0400 Heart rate 77 /min Pastor Bedoya MD Work Phone: [facility] 03-16-2022 11:00-0400 Respiratory rate 14 /min Pastor Bedoya MD Work Phone: [employer] [facility] 03-16-2022 11:00-0400 SaO2% (BldA) [Mass fraction] 96 % Pastor Bedoya MD Work Phone: [facility] [employer] [facility] 03-16-2022 11:00-0400 Systolic blood pressure 142 mm[Hg] Pastor Bedoya MD Work Phone: [facility] 03-15-2022 09:00-0400 Body height 182.9 cm Pastor Bedoya MD Work Phone: [employer] 03-15-2022 09:00-0400 Body mass index (BMI) [Ratio] 31.73 kg/m2 Pastor Bedoya MD Work Phone: [facility] 03-15-2022 09:00-0400 Body weight 106.14 kg Pastor Bedoya MD Work Phone: [employer] [facility] 2022 12:57-0400 Body height 182.9 cm Pastor Bedoya MD Work Phone: [employer] [facility] 2022 12:57-0400 Body mass index (BMI) [Ratio] 33.23 kg/m2 Pastor Bedoya MD Work Phone: [facility] 2022 12:57-0400 Body temperature 97.2 [degF] Pastor Bedoya MD Work Phone: [employer] [facility] 2022 12:57-0400 Body weight 111.13 kg Pastor Bedoya MD Work Phone: [employer] 11-04-2021 14:30-0500 Body height Carmen Kahn Other [facility] [facility] Other 03-20-2020 11:06-0400 BMI (Body Mass Index) 33.63 kg/m2 [facility] 03-20-2020 11:06-0400 Body Temperature 97.5 [degF] [facility] 03-20-2020 11:06-0400 Body weight 112.49 kg [facility] 03-20-2020 11:06-0400 Height 182.9 cm [facility] 1945 00:00-0500 >na< Damari Rojas Dept. of Dermato logy Encounters Encounter Date Encounter Type Care Provider Facility Start: 04-12-2024 End: 04-12-2024 ambulatory AB [facility] Start: 04-04-2024 End: 04-04-2024 ambulatory AUGUSTINE TERRELLK Not Available Start: 04-04-2024 End: 04-04-2024 ambulatory DO Augustine Metz Work Phone: [facility] Work Phone: Start: 04-04-2024 End: 04-04-2024 Patient encounter procedure DO Augustine Ball Work Phone: [facility] Work Phone: Start: 04-02-2024 Non-patient / Non-visit DO Alo Metz Work Phone: [facility] Work Phone: Start: 04-01-2024 Non-patient / Non-visit DO Alo Metz Work Phone: [facility] Work Phone: Start: 03-22-2024 End: 03-22-2024 [facility] Start: 03-16-2024 End: 03-16-2024 ambulatory MADISON [facility] Start: 03-09-2024 End: 03-09-2024 ambulatory JOSE R DODD Not Available Start: 03-06-2024 End: 03-06-2024 ambulatory AUGUSTINE W NIDHIK Not Available Start: 02-27-2024 End: 02-27-2024 ambulatory AUGUSTINE W NIDHIK Not Available Start: 02-27-2024 End: 02-27-2024 ambulatory DO Augustine Metz Work Phone: [facility] Work Phone: Start: 02-27-2024 End: 02-27-2024 Patient encounter procedure DO Augustine Ball Work Phone: [facility] Work Phone: Start: 02-24-2024 End: 02-24-2024 Admission to same day surgery center DO Augustine Ball Work Phone: [facility] [place] Start: 02-24-2024 End: 02-24-2024 ambulatory DO Augustine Ball Work Phone: [facility] Work Phone: Start: 02-16-2024 End: 02-16-2024 Patient encounter procedure DO Augustine Ball Work Phone: [facility] Work Phone: Start: 02-16-2024 End: 02-16-2024 ambulatory DO Augustine Ball Work Phone: [facility] Work Phone: Start: 02-16-2024 Encounter for preprocedural cardiovascular examination Augustine Freitas [facility] Start: 02-15-2024 End: 02-15-2024 ambulatory AUGUSTINE FREITAS Not Available Start: 02-15-2024 End: 02-15-2024 ambulatory CHRISTIN BOLTON Not Available Start: 02-09-2024 End: 02-09-2024 ambulatory MADISON PAUL [facility] Start: 01-31-2024 End: 01-31-2024 ambulatory [facility] Work Phone: Start: 01-31-2024 End: 01-31-2024 Patient encounter procedure [facility] Work Phone: Start: 01-31-2024 Non-patient / Non-visit [facility] Work Phone: Start: 01-29-2024 Evaluation and management of inpatient BRIGITTE PERRY [facility] Start: 01-27-2024 Evaluation and management of inpatient LIONEL [facility] Start: 01-26-2024 Evaluation and management of inpatient LIONEL [facility] Start: 01-26-2024 Evaluation and management of inpatient LIONEL [facility] Start: 01-25-2024 Evaluation and management of inpatient LIONEL [facility] Start: 01-25-2024 Evaluation and management of inpatient LIONEL [facility] Start: 01-25-2024 Evaluation and management of inpatient [facility] Start: 01-25-2024 Evaluation and management of inpatient [facility] Start: 01-25-2024 Evaluation and management of inpatient [facility] Start: 01-24-2024 End: 01-29-2024 Evaluation and management of inpatient [facility] Start: 01-18-2024 Non-patient / Non-visit [facility] Work Phone: Start: 01-10-2024 End: 01-10-2024 ambulatory OSMAN SHAH Not Available Start: 12-30-2023 End: 12-30-2023 ambulatory JOSE R DODD Not Available Start: 12-16-2023 Non-patient / Non-visit [facility] Work Phone: Start: 11-01-2023 End: 11-01-2023 ambulatory Augustine Metz Other [employer] Other Start: 11-01-2023 Telephone encounter Augustine Metz [facility] Start: 10-31-2023 End: 10-31-2023 ambulatory Augustine Metz Other [employer] Other Start: 10-31-2023 Office outpatient vi sit 25 minutes Augustine Metz [facility] Start: 10-28-2023 Bamboo flowsheet Jose R mackay DO Work Phone: [facility] Start: 10-28-2023 Bamboo flowsheet Jose R mackay DO Work Phone: [facility] Start: 10-28-2023 End: 10-28-2023 ambulatory JOSE R DODD Not Available Start: 10-24-2023 End: 10-24-2023 ambulatory AB [facility] Start: 09-16-2023 End: 01-24-2024 ambulatory [facility] Start: 09-06-2023 End: 09-06-2023 ambulatory [facility] Start: 08-29-2023 End: 08-29-2023 ambulatory JOSE R DODD Not Available Start: 08-27-2023 End: 08-29-2023 ambulatory JOSE R DODD Not Available Start: 08-26-2023 End: 08-26-2023 ambulatory JOSE R DODD Not Available Start: 07-11-2023 End: 07-11-2023 ambulatory Augustine Metz Other [facility] [facility] Other Start: 07-11-2023 Telephone encounter Augustine Isaías [facility] Start: 07-10-2023 End: 07-10-2023 ambulatory Augustine Metz Other [facility] [facility] Other Start: 07-10-2023 Telephone encounter Augustine Metz [facility] Start: 07-05-2023 End: 07-05-2023 Emergency department patient visit Augustine Metz Facility:[facility] Start: 03-16-2023 ambulatory AZUL RACHEL [facility] Start: 03-16-2023 End: 03-16-2023 Office outpatient visit 15 minutes Azul LAN Work Phone: [facility] Comment on above: Hx of total knee art hroplasty, right (Primary Dx) Start: 03-16-2023 End: 03-16-2023 Subsequent hospital visit by physician Azul LAN Work Phone: [facility] Start: 02-01-2023 ambulatory AUGUSTINE METZ Facilit y:[email or web address] Start: 01-24-2023 End: 02-23-2023 ambulatory SHAIKH Tiburcio PRICE Facility:[facility]1 Start: 01-22-2023 End: 01-22-2023 ambulatory Augustine Metz Other [facility] Other Start: 01-22-2023 Telephone encounter Augustine PHILIPPE G [facility] Start: 2023 End: 01-22-[address] AUGUSTINE METZ Facility:[facility] Start: 01-05-2023 End: 01-05-2023 ambulatory Augustine Metz Other [employer] [facility] Other Start: 01-05-2023 Office outpatient vi sit 25 minutes Augustine Metz [facility] Start: 12-27-2022 End: 2023 ambulatory SHAIKH Tiburcio PRICE Facility:[facility] Start: 11-24-2022 End: 12-24-2022 ambulatory SHAIKH Tiburcio PRICE Facility:[facility] Start: 11-10-2022 End: 11-10-2022 ambulatory Augustine Metz Other [facility] [facility] Other Start: 11-10-2022 Telephone encounter Augustine Metz [facility] Start: 11-09-2022 Telephone encounter Augustine Metz FP [facility] Start: 11-09-2022 End: 11-10-2022 ambulatory AUGUSTINE James ISAÍAS [facility] [employer] Other Start: 11-08-2022 ambulatory AUGUSTINE METZ Facilit [...] 10-04-2022 End: 10-04-2022 ambulatory Augustine Metz Other [facility] [facility] Other Start: 10-04-2022 Office outpatient vi sit 25 minutes Augustine HOFFMANN [facility] Start: 10-01-2022 ambulatory Ms. Osman Shah Facility:[id number] Start: 09-27-2022 End: 10-27-2022 ambulatory SHAIKH Tiburcio PRICE Facility:[facility] Start: 09-14-2022 Damari Rojas Dept. of D ermatology Start: 09-09-2022 Pre-procedure evaluation check Augustine eMtz Other [employer] Other Start: 09-07-[address] Macario Bui Facility:[id number] Start: 08-26-2022 End: 09-26-2022 ambulatory SHAIKH Tiburcio PRICE Facility:[facility] Start: 07-27-2022 End: 08-25-2022 ambulatory SHAIKH Tiburcio PRICE Facility:[facility] Start: 07-13-2022 End: 07-14-[address] AUGUSTINE METZ Facility:[facility] Start: 07-08-2022 ambulatory PASTOR BEDOYA [facility] Start: 07-08-2022 End: 07-08-2022 Office outpatient visit 15 minutes Pastor Bedoya MD Work Phone: [facility] Comment on above: Hx of total knee art hroplasty, right (Primary Dx) Start: 07-08-2022 End: 07-08-2022 Subsequent hospital visit by physician Pastor Bedoya MD Work Phone: [facility] Start: 06-28-2022 End: 06-29-[address] AUGUSTINE METZ Facility:[facility]1 Start: 06-28-2022 End: 07-26-2022 ambulatory SHAIKH Tiburcio PRICE Facility:[facility]1 Start: 06-15-2022 End: 06-16-[address] AUGUSTINE METZ Facility:[facility] Start: 05-27-2022 End: 06-26-2022 ambulatory SHAIKH Tiburcio PRICE Facility:[facility]1 Start: 05-03-2022 End: 05-03-2022 Patient encounter procedure Mc ALMONTE [facility] Start: 04-26-2022 End: 04-27-[address] AUGUSTINE METZ Facility:[facility] Start: 04-26-2022 End: 05-26-2022 ambulatory SHAIKH Tiburcio PRICE Facility:[facility]1 Start: 04-19-2022 End: 05-08-[address] AUGUSTINE METZ Facility:[facility] Start: 04-08-2022 ambulatory AZUL RACHEL [facility] Start: 04-08-2022 End: 04-08-2022 Postop follow up visit related to original px Azul LAN Work Phone: [facility] Comment on above: Hx of total knee art hroplasty, right (Primary Dx) Start: 04-08-2022 End: 04-08-2022 Subsequent hospital visit by physician Azul LAN Work Phone: [facility] Start: 04-07-2022 End: 04-08-[address] AUGUSTINE METZ Facility:[facility]1 Start: 03-26-2022 End: 04-23-2022 ambulatory SHAIKH Tiburcio PRICE Facility:[facility]1 Start: 03-15-2022 End: 03-16-2022 Patient encounter status Pastor Bedoya MD Work Phone: [facility] Start: 03-15-2022 End: 03-16-2022 Subsequent hospital visit by physician Pastor Bedoya MD Work Phone: [facility] Comment on above: S/P total knee arthr oplasty, right Start: 2022 End: 2022 Office outpatient new 60 minutes Pastor Bedoya MD Work Phone: [facility] Comment on above: Right knee pain, uns pecified chronicity (Primary Dx); Pain in prosthetic joint, sequela Start: 2022 End: 2022 Subsequent hospital visit by physician Pastor Bedoya MD Work Phone: [facility] Start: 11-04-2021 End: 11-04-2021 ambulatory Carmen Kahn Other [employer] [facility] Other Start: 11-04-2021 Office outpatient vi sit 25 minutes Carmen Lazarooli [facility] Start: 11-03-2021 End: 11-03-2021 ambulatory Carmen Kahn Other [facility] [facility] Other Start: 11-03-2021 Telephone encounter Carmen Lazarooli [facility] Start: 03-20-2020 End: 03-20-2020 Office outpatient visit 15 minutes Pastor Bedoya Work Phone: [facility] Comment on above: 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) Start: 03-20-2020 End: 03-20-2020 Subsequent hospital visit by physician Azul LAN Work Phone: [facility] Start: 06-13-2019 End: 06-14-2019 Patient encounter procedure GENE JONES Facility:[facility] Procedures Date Procedure Procedure Detail Performing Clinician Start: 02-24-2024 Excision of lesion of cheek DO Augustine Ball Work Phone: Start: 10-28-2023 Computerized ophthalmic imaging [...] Phone: Start: 03-15-2022 Prothrombin time Azul Rachel SHOT POLISHER AND INSPECTOR-RAILWAY TRACK WORKER Work Phone: Start: 03-15-2022 Cultyp nuc acid amp prb cult/isolate ea orgnism Azul Virginie SHOT POLISHER AND INSPECTOR-RAILWAY TRACK WORKER Work Phone: Start: 03-15-2022 Sars-cov-2 detection by dna/rna Azul Darryl ramirez SHOT POLISHER AND INSPECTOR-RAILWAY TRACK WORKER Work Phone: Start: 03-15-2022 Antibody screen rbc each serum technique Pastor Bedoya MD Work Phone: Start: 03-15-2022 End: 03-15-2022 Thromboplastin time partial plasma/whole blood Azul Rachel SHOT POLISHER AND INSPECTOR-RAILWAY TRACK WORKER Work Phone: Start: 01-10-2020 Renal lithotripsy Mc ALMONTE Start: 10-23-2019 Cystoscopic removal of ureteric stent Mc ALMONTE Start: 09-26-2019 Endoscopic retrograde cholangiopancreatography Mc ALMONTE Cholecystectomy Mc [facility]ART Colonoscopy Mc ALMONTE Depression screening Benjami n Ball Other Total knee replacement Ro ALMONTE Plan of Treatment Date Care Activity Detail Author Start: 02-24-2024 End: 02-24-2024 [facility] Start: 01-10-2024 End: 01-10-2024 Patient encounter procedure 01/10/2024 9:35 AM EDT Office Visit [facility] [address] [place] [address] Osman Shah SHOT POLISHER AND INSPECTOR-RAILWAY TRACK WORKER [address] [place] [address] [facility] Start: 10-28-2023 End: 10-28-2023 Patient encounter procedure 10/28/2023 9:30 AM EST Procedure Visit [facility] [address] [place] [id number] Jose R Dodd, [address] [place], [place] [id number] Arrived [facility] Comment on above: Arrived Start: 05-27-2023 Influenza vaccination Influenza Vacc ine (#1) [facility] Start: 03-16-2023 End: 03-16-2023 Patient encounter procedure 03/16/2023 Office Visit Orthopaedics Azul Rachel, SHOT POLISHER AND INSPECTOR-RAILWAY TRACK WORKER [address] [facility] [address] [facility] Start: 10-22-2022 COVID-19 VACCINE (6 - Pfizer series) COVID-19 VACCINE (6 - Pfizer series) [facility] Start: 08-21-2022 Hemoglobin A1c measurement HBA1C TEST [facility] Start: 07-08-2022 End: 07-08-2022 Patient encounter procedure 07/08/2022 Office Visit Orthopaedics Pastor Bedoya MD [address] [facility] [address] [facility] Start: 05-27-2022 Influenza vaccination A [facility] Start: 04-08-2022 End: 04-08-2022 Patient encounter procedure 04/08/2022 Office Visit Orthopaedics Azul Rachel, SHOT POLISHER AND INSPECTOR-RAILWAY TRACK WORKER [address] [place] [address] [facility] Start: 02-18-2022 End: 02-18-2022 ambulatory 02/18/2022 Pre-Operative Nurse Assessment Internal Medicine [facility] Start: 05-27-2020 Influenza vaccination INFLUENZ A VACCINE (Season Ended) [facility] Start: 12-25-2014 Pneumococcal vaccination PNEUMOCOCCAL VACCINE SERIES (2 - PCV) [facility] Start: 12-25-2014 Pneumococcal Vaccine : 65+ Years (2 - PCV) Pneumococcal Vaccine: 65+ Years (2 - PCV) [facility] Start: 2011 Abdominal aortic aneurysm screening ABDOMINAL AORTIC ANEURYSM HIGH RISK SCREEN [facility] Start: 2011 Pneumococcal vaccination [facility] Start: 01-22-1996 Colonoscopy COLORECTAL CAN CER SCREENING DISCUSSION [facility] Start: 01-22-1996 Prostate specific antigen measurement PROSTATE CANCER SCREENING DISCUSSION [facility] Start: 01-22-1996 Zoster vaccine hzv live for subcutaneous use ZOSTER (SHINGLES) VACCINE (1 of 2) [facility] Start: 1991 Colonoscopy COLORECTAL CAN CER SCREENING DISCUSSION [facility] Start: 1991 Screening for malignant neoplasm of colon COLORECTAL CANCER SCREENING DISCUSSION [facility] Start: 1986 Fasting lipid profile LIPID SCREENIN G [facility] Start: 1965 Third diphtheria, tetanus and acellular pertussis (DTaP) vaccination TDAP (ADULT) [facility] Start: 01-22-1964 Tetanus vaccination TETANUS [facility] Start: 1951 COVID-19 VACCINE (#1) COVID-19 VACCI NE (#1) [facility] Start: 1946 COVID-19 VACCINE (#1) COVID-19 VACCI NE (#1) [facility] Start: 1946 Diabetic foot examination DIABETIC FOOT EXAM [facility] Start: 1946 Diabetic retinal eye exam EYE EXAM [facility] Start: 1946 Glaucoma screening EYE EXAM [facility] Start: 1946 Hepatitis B vaccination HEP B VACCINE (1 of 3 - 3-dose series) [facility] Start: 1946 Hepatitis C antibody , confirmatory test HEPATITIS C VIRUS SCREENING [facility] Start: 1946 Hepatitis C screening HEPATITI S C VIRUS SCREENING [facility] Start: 1946 Lipid panel LIPIDS [facility] Start: 1945 L[address]IDS [address] [facility] Start: 1945 Microalbumin measurement, urine, quantitative URINE MICROALBUMIN TEST [facility] Start: 1945 Potassium [Moles/Vol] POTASSIUM [facility] Start: 1945 Tetanus vaccination TETANUS [facility] Start: 1945 Urine screening for protein URINE MICROALBUMIN TEST [facility] Patient Education Know your Meds [facility] Work Phone: Patient referral [facility] Work Phone: Radiography for bone length studies XR BONE LENGTH STUDY Imaging Routine Hx of total knee arthroplasty, right 07/08/2022 11:01 AM EDT [facility] Work Phone: SURGICAL PATHOLOGY REQUEST SURGICAL PATHOLOGY REQUEST Surg Path Routine Osteoarthritis of right knee, unspecified osteoarthritis type Release Upon Ordering for 1 Occurrences starting 03/15/2022 [facility] Work Phone: Comment on above: Release Upon Orderin g for 1 Occurrences starting 03/15/2022 X-ray of left knee XR KNEE LEFT 3 VIEWS Imaging Routine History of revision of total replacement of left knee joint 03/20/2020 10:48 AM EDT [facility] XR Knee - left 3 Views XR KNEE L EFT 3 VIEWS Imaging Routine Pain in prosthetic joint, sequela 2022 1:09 PM EDT [employer] (PVT) XR Knee - right 3 Views XR KNEE RIGHT 3 VIEWS Imaging Routine Hx of total knee arthroplasty, right 04/08/2022 10:04 AM EDT [employer] (PVT) XR Knee - right 3 Views XR KNEE RIGHT 3 VIEWS Imaging Routine Hx of total knee arthroplasty, right 07/08/2022 11:01 AM EDT [employer] (PVT) XR Knee - right 3 Views XR KNEE RIGHT 3 VIEWS Imaging Routine Hx of total knee arthroplasty, right 03/16/2023 11:03 AM EDT [facility] XR Knee - right 4 Views XR KNEE RIGHT 4+ VIEWS Imaging Routine Right knee pain, unspecified chronicity 2022 12:51 PM EDT [facility] Immunizations Immunization Date Immunization Notes Care Provider Dunia burrell 12-27-2023 COVID-19 (PFIZER) 12Y and older DO Augustine Metz Work Phone: [facility] 07-08-2023 influenza virus vaccine, unspecified formulation [facility] 07-08-2023 influenza, high dose seasonal, preservative-free Augustine Ball Other [facility] [employer] Other 06-21-2023 COVID-19 (PFIZER) 12Y and older DO Augustine Metz Work Phone: [facility] 03-03-2023 zoster vaccine recombinant Augustine Ball Other [facility] 01-01-2023 zoster vaccine recombinant Augustine Ball Other [facility] 06-29-2022 influenza, high dose seasonal, preservative-free Augustine Ball Other [facility] [employer] Other 06-29-2022 influenza virus vaccine, split virus (incl. purified surface antigen) Augustine Metz Other [facility] [employer] Other 06-29-2022 influenza virus vaccine, unspecified formulation Jose R Sherrell DO Work Phone: [facility] 06-22-2022 COVID-19 Pfizer (bivalent) Augustine Metz Other [facility] 04-17-2022 COVID-19 Comirnaty (Pfizer) Tri-Sucrose 12+ DO Augustine Metz Work Phone: [facility] 07-15-2021 influenza virus vaccine, split virus (incl. purified surface antigen) Augustine Metz Other [facility] [employer] Other 07-15-2021 influenza virus vaccine, unspecified formulation [facility] 06-22-2021 COVID-19 Vaccine Pfi zer - Documentation Purposes Only Augustine Metz Other [facility] 11-20-2020 COVID-19 Vaccine Pfi zer - Documentation Purposes Only Augustine Metz Other [facility] 10-30-2020 COVID-19 Vaccine Pfi zer - Documentation Purposes Only Augustine Isaías Other [facility] 07-01-2020 influenza virus vaccine, split virus (incl. purified surface antigen) Augustine Isaías Other [employer] Other 07-01-2020 influenza virus vaccine, unspecified formulation [facility] 07-06-2019 influenza virus vaccine, split virus (incl. purified surface antigen) Augustine Isaías Other [facility] [employer] Other 07-06-2019 influenza virus vaccine, unspecified formulation [facility] 07-12-2018 influenza virus vaccine, split virus (incl. purified surface antigen) Augustine Isaías Other [facility] [employer] Other 07-12-2018 influenza virus vaccine, unspecified formulation [facility] 07-25-2017 influenza virus vaccine, split virus (incl. purified surface antigen) Augustine Isaías Other [facility] [employer] Other 07-25-2017 influenza virus vaccine, unspecified formulation [facility] 07-07-2016 influenza virus vaccine, split virus (incl. purified surface antigen) Augustine Metz Other [employer] Other 07-07-2016 influenza virus vaccine, unspecified formulation [facility] 07-18-2015 pneumococcal conjuga te vaccine, 13 valent Augustine Metz Other [facility] 06-11-2015 influenza virus vaccine, split virus (incl. purified surface antigen) Augustine Metz Other [place] [employer] [employer] Other 06-11-2015 influenza virus vaccine, unspecified formulation [facility] 06-17-2014 tetanus and diphther ia toxoids, adsorbed, preservative free, for adult use (5 Lf of tetanus toxoid and 2 Lf of diphtheria toxoid) Augustine Metz Other [facility] 08-28-2013 pneumococcal polysaccharide vaccine, 23 valent Augustine Metz Other [facility] 07-26-2013 tetanus and diphther ia toxoids, adsorbed, preservative free, for adult use (5 Lf of tetanus toxoid and 2 Lf of diphtheria toxoid) Augustine Metz Other [facility] 07-18-2013 zoster vaccine, live Benjami letty Metz Other [facility] 1945 pneumococcal conjuga te vaccine, 7 valent Damari Rojas [facility]atology Payers Date Payer Category Payer Self-pay [id number] 2017 Unknown [employer] [id number] 2017-Present [id number]. [id number] 2010 Medicare MEDICARE MEDICAR E A AND B [id number] 2010-Present [place], [place] [id number]. [id number] 2008 Medicare [id number]. 1.13.172.2.7.3. [id number] 2008 Unknown [id number]. 1.13.172.2.7.3. [id number] 1959 Medicare [id number] 2.16.840.1.891088.19 1959 Unknown [id number] 1946 Unknown [id number] 2.16.840.1.722001.3.579.2.647 1946 Unknown [id number] 2.16.840.1.398468.3.579.2.356 1946 Unknown [id number] 2.16.840.1.051530.3.579.2.356 1946 Unknown [id number] 2.16.840.1.970012.3.579.2.159 1946 Unknown [id number] 2.16.840.1.389300.3.579.2.159 1946 Unknown [id number] 2.16.840.1.735034.3.579.2.159 1946 Unknown [id number] 2.16.840.1.802785.3.579.2.159 1946 Unknown [id number] 2.16.840.1.219538.3.579.2.159 1946 Unknown [id number] 2.16.840.1.915267.3.579.2.593 1946 Unknown [id number] 2.16.840.1.297247.3.579.2.593 1946 Unknown [id number] 2.16.840.1.023242.3.579.2.593 1946 Unknown [id number] 2.16.840.1.488588.3.579.2.593 1946 Unknown [id number] 2.16.840.1.225413.3.579.2.593 1946 Unknown [id number] 2.16.840.1.885885.3.579.2.593 1946 Unknown [id number] 2.16.840.1.438986.3.579.2.593 1946 Unknown [id number] 2.16.840.1.641917.3.579.2.593 1946 Unknown [id number] 2.16.840.1.589714.3.579.2.593 1946 Unknown [id number] 2.16.840.1.659461.3.579.2.593 1946 Unknown [id number] 2.16.840.1.293505.3.579.2.593 1946 Unknown [id number] 2.16.840.1.316886.3.579.2.593 1946 Unknown [id number] 2.16.840.1.435046.3.579.2.593 1946 Unknown [id number] 2.16.840.1.774318.3.579.2.593 1946 Unknown [id number] 2.16.840.1.234374.3.579.2.593 1946 Unknown [id number] 2.16.840.1.046192.3.579.2.593 1946 Unknown [id number] 2.16.840.1.230537.3.579.2.593 1946 Unknown [id number] 2.16.840.1.116637.3.579.2.593 1946 Unknown [id number] 2.16.840.1.020044.3.579.2.593 1946 Unknown [id number] 2.16.840.1.515643.3.579.2.593 1946 Unknown [id number] 2.16.840.1.627639.3.579.2.983 1946 Unknown [id number] 2.16.840.1.504977.3.579.2.983 1946 Unknown [id number] 2.16.840.1.538742.3.579.2.983 1946 Unknown [id number] 2.16.840.1.680806.3.579.2.983 1946 Unknown [id number] 2.16.840.1.252363.3.579.2.983 1946 Unknown [id number] 2.16.840.1.510916.3.579.2.983 1946 Unknown [id number] 2.16.840.1.039603.3.579.2.718 1946 Unknown [id number] 2.16.840.1.697947.3.579.2.1259 1946 Unknown [id number] 2.16.840.1.343358.3.579.2.1259 1946 Unknown [id number] 2.16.840.1.904163.3.579.2.125 1946 Unknown [id number] 2.16.840.1.406998.3.579.2.1259 1946 Unknown [id number] 2.16.840.1.462712.3.579.2.125 1946 Unknown [id number] 2.16.840.1.777046.3.579.2.1259 1946 Unknown [id number] 2.16.840.1.462464.3.579.2.125 1946 Unknown [id number] 2.16.840.1.354539.3.579.2.1259 1946 Unknown [id number] 2.16.840.1.998026.3.579.2.125 1946 Unknown [id number] 2.16.840.1.503050.3.579.2.1259 1946 Unknown [id number] 2.16.840.1.265897.3.579.2.1259 1946 Unknown [id number] 2.16.840.1.468210.3.579.2.1259 Medicare [id number] Unknown [facility] [id number] Unknown [id number] 2.16.840.1.658472.3.579.2.531 Unknown [id number] 2.16.840.1.362620.3.579.2.531 Social History Date Type Detail Facility Start: 03-20-2020 End: 04-02-2024 Tobacco smoking status NHIS Former smoker [facility] End: 02-08-1983 History of tobacco use Current smoker [facility] Start: 03-20-2020 End: 07-08-2022 Tobacco use and exposure Former user [facility] End: 02-08-2003 History of tobacco use User of smokeless tobacco [facility] Start: 03-20-2020 End: 03-16-2023 Alcohol intake Current non-drinker of alcohol (finding) [employer] [facility] Start: 1945 Sex Assigned At Not on file [employer] Start: 03-05-2022 End: 03-15-2022 Exposure to SARS-CoV-2 (event) Not sure [employer] ([facility]) Start: 03-16-2023 End: 06-30-2023 Sex Assigned At [facility] [employer] Other Start: 05-03-2022 End: 12-16-2023 Tobacco smoking status Never smoked tobacco (finding) [facility] End: 02-08-1983 History of tobacco use Cigarette Smoker [employer] ([facility]) Start: 09-14-2022 Dept. of D ermatology Start: 1945 Sex Assigned At Male [facility] Start: 03-16-2023 End: 06-30-2023 History of Social function [facility] Gender identity Identifies as ma le gender (finding) [facility] Start: 08-29-2023 End: 10-28-2023 Alcohol intake Lifetime non-drinker (finding) [facility] Start: 06-23-2023 Alcohol Comment caffeine: soda [facility] Medical Equipment Procedure Code Equipment Code [...] 05-03-2022 Functional Status N/A [facility] Clinical Notes 11-04-2021 to 04-12-2024 Note Date & Type Note Facility 04-12-2024 Note [facility] Chief Complaint: Thought he had a heart attack two weeks ago, was sweeping out garage. Pain was right under clavicle bones. Also, since medication has been changed, he is getting dizzy spells. His BP has been running low occasionally. HPI: The patient states the chest pain that was just beneath his collarbone was made worse with deep breaths. It has since resolved and he has had no further recurrences. He states that he has occasional lightheadedness and dizziness. Dr. Metz his family physician decreased his Coreg to 6.25 mg p.o. twice daily. He is monitoring his blood pressure at home. He denies exertional angina, he has had no orthopnea, paroxysmal tunnel dyspnea, or worsening lower extremity edema. Cardiology ROS: Review of Systems Cardiovascular: Positive for chest pain and leg swelling. Neurological: Positive for dizziness. All other systems reviewed and are negative. Patient Active Problem List Diagnosis Atrial fibrillation [...] In April 2019 he presented to the [facility] with atrial fibrillation with controlled [...] Constitutional: Positive for malaise/fatigue. Cardiovascular: Positive for chest pain and leg swelling. Hematologic/Lymphatic: Bruises/bleeds easily. Musculoskeletal: Positive for arthritis, back pain and myalgias. Neurological: Positive for dizziness. All other systems reviewed and are negative. Objective Visit Vitals BP 146/74 (BP Location: Left arm, Patient Position: Sitting, BP Cuff Size: Large adult) Pulse 53 Resp 18 Ht 1.829 m (6') Wt 110 kg (242 lb 6.4 oz) SpO2 97% BMI 32.88 kg/m??? Smoking Status Former BSA 2.36 m??? Physical Exam Constitutional: Appearance: He is well-developed. He is obese. He is not ill-appearing. HENT: Head: Normocephalic and atraumatic. Nose: Nose normal. Eyes: General: No scleral icterus. Pupils: Pupils are equal, round, and reactive to light. Neck: Thyroid: No thyromegaly. Vascular: No JVD. Cardiovascular: Rate and Rhythm: Normal rate and regular rhythm. Pulses: Radial (more content not included)... [facility] 03-22-2024 Note [facility] Subjective Tito Goncalves is a [...] In April 2019 he presented to the [facility] with atrial fibrillation with controlled [...] normal. Allergies Morro (more content not included)... [facility] 03-16-2024 Note Patient: Tito mejia Procedure Information Date/Time: 03/16/24 1030 Procedure: TRANSESOPHAGEAL ECHO (JESSICA) Location: [facility] Vascular Lab Clinical information reviewed: Allergies Meds Physical Exam Airway Mallampati: II TM distance: >3 FB Neck ROM: full Cardiovascular Rhythm: regular Rate: normal Dental Pulmonary Abdominal Anesthesia Plan ASA 3 other (Conscious sedation.) Anesthetic plan and risks discussed with patient. Use of blood products discussed with patient who consented to blood products. Additional Equipment Requests [facility] 02-09-2024 Note Patient here for fol low up LAAO and pericardial effusion. Still denies chest pain, SOB, palpitations, and lightheadedness/syncope. Doing very well. Review of Systems Constitutional: Positive for malaise/fatigue. Cardiovascular: Positive for leg swelling (resolves by morning). Hematologic/Lymphatic: Bruises/bleeds easily. Musculoskeletal: Positive for arthritis, back pain and myalgias. All other systems reviewed and are negative. [facility] 02-09-2024 Note Cardiovascular Medic [facility] SUBJECTIVE Chief Complaint Patient presents [...] lower leg: Naman (more content not included)... [facility] 01-29-2024 Note Patient discharged w ith family. Patient provided copy of AVS and discharge instructions. All questions and concerns addressed. All belongings with patient [facility] 01-29-2024 Note Hospital Medicine Discharge Summary Final [...] In April 2019 he presented to the [facility] with atrial fibrillation with controlled [...] switched propafenon to amiodarone. - Not on skilled nursing AC due to hx of falls and [...] Center 02/09/2024 9:40 AM Madison Paul NP [facility] 03/16/2024 10:30 AM [facility] WASHROOM ATTENDANT HOLDING ROOM HVC VASC LAB [facility] Your medication list START taking these medications [...] Medications These medications were sent to [facility] - [place], [place] - [address] [place], [place] [address]e [place] [address] [facility] [place] [address], [facility] [address] amiodarone 200 mg tablet clopidogrel 75 mg tablet Tito is allergic to iodine, penicillins, shellfish containing products, and sulfa (sulfonamide antibiotics). Disposition: Home-Health Care [facility] (06) Discharge Condition: Stable Code Status: Full Code Diagnostic Results Hematology: Results from last 7 days Lab Units 01/29/24 0601/28/24 0525 01/26/24 0333 01/25/24 0456 01/25/24 0438 [...] oriented x3. Cardiology: (more content not included)... [facility] 01-29-2024 Note Cardiology Progress Note Subjective Subjective: [...] 86 QT Interval 316 QTC CALCULATION(BAZETT) 453 R-Paris 8 T Wave Paris 100 Impression Atrial fibrillation with rapid ventricular [...] (TTE) limited Result Date: 01/27/2024 1 1 [facility] Heart Station [address] [place] [address] [phone] (fax) Echocardiogram-[facility] Name: TITO GONCALVES Study Date: 01/27/2024 08:18 AM B/P: 147 mmHg/62 mmHg HR: 67 bpm Date of : 1945 Location: [facility] Height: 72 in. Age: 79 year(s) [...] fibrinous material noted. Procedure Staff Reading Group: [facility] Timekeeper Supervisor: MARLEY Donohue, RDCS Ordering Physician: LIONEL MENA Transthoracic echo (TTE) limited Result Date: 01/26/2024 1 1 [facility] Heart Station [address] [place] [address] [phone] (fax) Echocardiogram-[facility] Name: TITO GONCALVES Study Date: 01/26/2024 07:59 AM B/P: 129 mmHg/74 mmHg HR: Date of : 1945 Location: [facility] Height: 72 in. Age: 79 year(s) [...] atrium appears e (more content not included)... [facility] 01-28-2024 Note Cardiology Progress Note Subjective Subjective: [...] 86 QT Interval 316 QTC CALCULATION(BAZETT) 453 R-Paris 8 T Wave Paris 100 Impression Atrial fibrillation with rapid ventricular [...] (TTE) limited Result Date: 01/27/2024 1 1 [facility] Station [address] [place] [address] [phone] (fax) Echocardiogram-[facility] Name: TITO GONCALVES Study Date: 01/27/2024 08:18 AM B/P: 147 mmHg/62 mmHg HR: 67 bpm Date of : 1945 Location: [facility] Height: 72 in. Age: 79 year(s) [...] fibrinous material noted. Procedure Staff Reading Group: [facility] Timekeeper Supervisor: MARLEY Donohue, RDCS Ordering Physician: LIONEL MENA Transthoracic echo (TTE) limited Result Date: 01/26/2024 1 1 [facility] Heart Station [address] [place] [address] [phone] (fax) Echocardiogram-[facility] Name: TITO GONCALVES Study Date: 01/26/2024 07:59 AM B/P: 129 mmHg/74 mmHg HR: Date of : 1945 Location: [facility] Height: 72 in. Age: 79 year(s) [...] size. Right ventr (more content not included)... [facility] 01-28-2024 Note Physical Therapy Physical Therapy Evaluation & Treatment Patient Name: Tito Goncalves : 1945 Today's Date: 01/28/2024 Time in: 1:53 pm Time out: 2:20 pm Total time: 27 minutes 01/28/24 1422 PT Last Visit PT Received On 01/28/24 General Subjective Both RN and pt agreeable to PT this afternoon. Pt denies pain and asleep upon curriculum writer entering room however easily awakens. Cognition Overall Cognitive Status WFL Arousal/Alertness Appropriate responses to stimuli Orientation Level Oriented X4 Following Commands Follows all commands and directions without difficulty Communication Intact Cognition Comments pt had difficulty navigating back to correct room after first bout of ambulation however after 2nd bout able to navigate back to room without external cues from curriculum writer. Therapeutic Exercise Therapeutic Exercise Time Entry [...] tray table within reach. PT Assessment PT Assessment/[employer] Summary Pt continues to progress towards goals [...] vital signs throughout session 01/27/24 02/10/24 -- [facility] 01-28-2024 Note Hospital Medicine Daily Progress Note - 01/28/2024 11:20 AM; Room: [facility]/3167- Admission: 01/24/2024 10:46 AM; Length of stay: 4 days THE HOSPITALIST TEAM PREFERS TO USE [employer]ologic CHAT FOR COMMUNICATION 7AM-7PM. IF I DO NOT RESPOND WITHIN 15 MINUTES, PLEASE PAGE ME/CALL THROUGH THE NEONATAL NURSE. FROM 7PM-7AM, PLEASE PAGE [phone](COVR) Code Status: Full Code Barriers to Discharge: [...] complication and patient [facility] for [facility] night monitoring to [...] mg, oral, Daily (more content not included)... [facility] 01-27-2024 Note ---- Attestation signed by Srinath [...] Progress Note - 01/27/2024 12:46 PM; Room: [address] [place] [address] Admission: 01/24/2024 10:46 AM; Length of stay: 3 days THE HOSPITALIST TEAM PREFERS TO USE [employer] FOR COMMUNICATION 7AM-7PM. IF I DO NOT RESPOND WITHIN 15 MINUTES, PLEASE PAGE ME/CALL THROUGH THE NEONATAL NURSE. FROM 7PM-7AM, PLEASE PAGE [phone](COVR) Code Status: Full Code Barriers to Discharge: [...] oral, Nightly ami (more content not included)... [facility] 01-27-2024 Note [facility] CARDIOLOGY INPAT IENT PROGRESS [...] 86 QT Interval 316 QTC CALCULATION(BAZETT) 453 R-Paris 8 T Wave Paris 100 Impression Atrial fibrillation with rapid ventricular response Nonspecific ST and T wave abnormality Abnormal ECG When compared with ECG of 25-JAN-2024 04:26, Atrial fibrillation has replaced Sinus rhythm Nonspecific ST-t wave abnormalities are now Present Vent. rate has increased BY 72 BPM Confirmed by Chitra CROCKETT, L.S. (2) on 01/26/2024 3:07:09 PM 01/27/24 [facility] TTE Left Ventricle: The left ventricle is [...] function is normal. (more content not included)... [facility] 01-27-2024 Note ---- Attestation signed by Jay Benitez PT at 01/27/2024 11:18 AM This curriculum writer (PT) provided one-on-one supervision, direction of [...] ECHO showed pericardial effusion, pt went to label remover for pericardiocentesis and currently has a pericardial [...] Level of Function Prior Function Level of Clare: Independent with ADLs and functional transfers, Independent [...] No upper extremity (more content not included)... [facility] 01-27-2024 Note Occupational Therapy Occupational Therapy Evaluation [...] Patient Active Problem List Diagnosis Atrial fibrillation ([facility]) Hypertensive disorder Mitral valve disorder Obstructive sleep apnea syndrome Arrhythmia Bile duct obstruction Fall Gastroesophageal reflux disease without esophagitis Hyponatremia Mixed hyperlipidemia Pneumobilia Restless leg syndrome S/P total knee arthroplasty, right Stage 3a chronic kidney disease ([facility]/HCC) Subdural hematoma ([facility]/HCC) Type 2 diabetes mellitus without complication, without long-term current use of insulin ([facility]) Benign prostatic hyperplasia with urinary obstruction Calculus of ureter Diabetes mellitus ([facility]/HCC) Dry eyes Exposure keratitis Exudative age-related macular degeneration ([facility]/HCC) Family history of malignant neoplasm of skin Glaucoma Glycosuria Left corneal abrasion Proteinuria Paroxysmal atrial fibrillation ([facility]/HCC) Pericardial effusion Past Medical History: Diagnosis Date Abnormal ECG Arrhythmia Atrial fibrillation ([facility]) Heart valve disease Hypertension Sleep apnea Past [...] Level of Function Prior Function Level of Clare: Independent with ADLs and functional transfers, Independent [...] Eating meals?: None (Independent) Total Score [facility] CENTER: 21 Assessment/Plan OT Assessment OT Impairments: [...] times per wee (more content not included)... [facility] 01-26-2024 Note ---- Attestation signed by Lionel [...] Goncalves Age - 79 y[facility] 1945 [id number] Date of Admission - 01/24/2024 10:46 AM [...] in limited echocar (more content not included)... [facility] 01-26-2024 Note ---- Attestation signed by Zoran [...] Nightly, Lilibeth March MD, 50 mg at 01/25/24 2126 Objective: Patient Vitals for the past 24 [...] Value Ventricular Rate 52 Atrial Rate 52 MN Interval 184 QRS DURATION 84 QT Interval 424 QTC CALCULATION(BAZETT) 394 P Paris 79 R-Paris 51 T Wave Paris 76 Impression Sinus bradycardia Nonspecific T wave abnormality Abnormal ECG (more content not included)... [facility] 01-26-2024 Note 01/26/24 1243 Admission Assessment Questions Verify insurance with patient Yes Do you understand medical disease or what brought you into the hospital? Yes Who is your current PCP? Dr Metz in [place] Can I schedule a follow up appointment for you at the time of discharge? Yes Do you understand why you are taking your current medications? Yes Are you taking your medications as prescribed? Yes Did patient provide teach back? Yes Would you like use our pharmacy iMeds to fill your new medications at the time of Discharge? No Does the patient have a bilingual patient support caseworker assigned to them through their insurance? No [...] to send link and activate MyChart? No [facility] 01-25-2024 Note ---- Attestation signed by Zoran [...] Daily, Lilibeth March MD, 1 mg at 01/24/241 clopidogrel (Plavix) tablet 75 mg, 75 mg, [...] -- 110 kg (242 lb 15.2 oz) 01/25/2425 -- -- -- 57 15 96 % -- 01/25/2425 92/60 -- -- -- -- -- -- 01/25/2420 -- -- -- 55 15 97 % -- 01/25/24 05 93/62 -- -- -- -- -- -- 01/25/24 0515 -- -- -- 54 15 97 % [...] 75/52 -- -- -- -- -- -- 01/25/245 -- -- -- -- -- 97 % -- 01/25/24444 75/54 -- -- 54 14 -- -- 01/25/240 -- -- -- 54 15 98 % -- 01/25/24 0439 75/55 -- -- -- -- -- -- 01/25/24434 -- -- -- -- -- 97 % -- 01/25/24434 100/74 -- -- 55 14 -- -- 01/25/24429 -- -- -- 74 16 98 % -- 01/25/24424 -- -- -- 53 14 96 % -- 01/25/24419 -- -- -- 55 11 95 % -- 01/25/24 0418 70/53 -- -- -- -- -- -- 01/25/24 0 (more content not included)... [facility] 01-25-2024 Note Patient: Tito mejia Procedure Information Date/Time: 01/25/24 1800 Procedure: Pericardiocentesis Location: [facility] WASHROOM ATTENDANT 3 / [facility] (Cath) Providers: Oliver Crane [...] Plan discussed with attending. Additional Equipment Requests [facility] 01-25-2024 Note CLINICAL INFORMATION : Ground level [...] this report. Electronically signed: Trenton Martinez. 6 [facility] 01-25-2024 Note Responded to rr Hypotension fall [...] ordered d/w cardiology pt to move to micu [facility] 01-24-2024 Note Pharmacy Dosing Serv ice - Vancomycin Initial Consult Note Pharmacy has been consulted for the dosing and evaluation of Drug: Vancomycin Indication: surgical prophylaxis Other Antimicrobial Regimens: None Labs and Renal Function Total body weight: 112 kg (248 lb) [place] body weight: 77.6 kg (171 lb 1.2 [...] is afebrile and hemodynamically stable. Presenting to [facility] for closure of left atrial appendage. [...] questions Thank you, Rose Tomas, PharmD, 01/24/24 [facility] 01-24-2024 Note Patient: Tito mejia Procedure Information Date/Time: 01/24/24 1300 Procedure: Left atrial appendage closure (transvenous) - ADRIENNE WILL CALL Location: [facility] WASHROOM ATTENDANT 3 / [facility] (Cath) Providers: Oliver Crane MD Clinical information reviewed: Allergies Meds Physical Exam Airway Mallampati: II TM distance: >3 FB Neck ROM: full Cardiovascular Rhythm: regular Rate: normal Dental Pulmonary Abdominal Anesthesia Plan ASA 3 other (Conscious sedation.) Anesthetic plan and risks discussed with patient. Use of blood products discussed with patient who consented to blood products. Additional Equipment Requests [facility] 01-11-2024 Note Amna Sousa CNP - patient's daughter- called with questions about her dad's upcoming LAAO procedure. She said you had given her instructions for him previously regarding coumadin, but she cannot find it. Can you please call her cell phone when you get a chance? [phone] If you need me to do anything, please let me know. Thanks! :) [facility] 10-31-2023 Evaluation note Encounter Date Diagnosis Assessment [...] are maintaining regular scheduled appts with their icing mixer. Scheduled for LAAO procedure but postponed until [...] Exercise w/ goal of 10% weight loss [facility] Other 02-02-2024 NoteRight Eye Quality was good. Scan locations included subfoveal. Progression has been stable. Findings include abnormal foveal contour, disciform scar. Left Eye Quality was good. Scan locations included subfoveal. Progression has been stable. Findings include normal observations.[facility] HospitalIocrsucksd02-20-1080 History of Present illness Narrative* Jose R [...] now given soon to be trip to [place] as well as side effects from last treatment in August. He was provided an Amsler grid to check daily and note any changes to this. He understands to get jacob of his retina specialist in [place] if there was a change. Will see [...] artificial tears were recommended. documented in this encounterOzarks Community [id number] [facility] Clinic Note Chief Complaint: Patient [...] PSYCH: appropriate mood, affect, and judgement. Transesophageal Echocardiogram-[facility] Name: TITO GONCALVES Study Date: 09/16/2023 09:38 AM B/P: 136 mmHg/70 mmHg HR: Date of : 1945 Location: [facility] Height: 72 in. Age: 78 year(s) Patient Room : [facility] Weight: 246 lb. Gender: Male Patient Status: OutPt BSA: 2.33 m2 Indication: Atrial Fibrillation, Pre LAAO closure Examination: JESSICA/Limited Doppler/CFI, Agitated Saline, 3D images Image Quality: Good Patient Consent: Informed, written consent was obtained for the procedure s p @ c 3 Exam Location: A JESSICA was performed in the Production Inspector without complications s p @ c 3 [...] problems arise Maggy Murphy MD, MPH, FACC, [facility], [facility] Interventional Cardiology Pager Email: [email or web address]12-12-2023 NoteUT Cardiology - [facility] Clinic Subjective Tito Goncalves is a 78 y.o. year old male patient being seen to discuss LAAO. He presented to [facility] ED in Jun 2023 for fall. He is anticoagulated with warfarin for afib. Back in December 2022 he had brain bleed s/p fall. Was treated at [facility]. He denies chest pain, SOB, and [...] In April 2019 he presented to the [facility] with atrial fibrillation with controlled [...] Take 1 tablet (more content not included)... [facility]06-21-2023 History of Present illness Narrative* Shannen Chahal - 03/16/2023 11:20 AM EDT Ortho Nurse - Established Patient Intake Room#: 5 Date: 03/16/2023 11:20 AM Patient: Tito Goncalves MR#: [id number] : 1945 Age: 78 y.o. 1yr R [...] g, shellfish allergy, and sulfa antibiotics. * EDYTA Ayala - 03/16/2023 11:20 AM EDT HPI: Patient [...] the findings of the clinical desktop support associate and agree with their assessment. Ortho Nurse - Established Patient Intake Room#: 5 Date: 03/16/2023 11:20 AM Patient: Tito Goncalves MR#: [id number] : 1945 Age: 78 y.o. 1yr R [...] allergy, and sulfa antibiotics. documented in this [facility]04-29-2023 Evaluation note* Encounter Date Diagnosis Assessment Notes Treatment Notes Treatment Clinical Notes Dec, Subarachnoid hemorrhage (ICD-10 - I60.9) [facility] Other 04-12-2023 Evaluation note* Encounter Date Diagnosis [...] are maintaining regular scheduled appts with their icing mixer. Dec, Obstructive sleep apnea (ICD-10 - G47.33) [...] and weight loss. Improved control of BS [facility] Other 02-15-2023 Evaluation note* Encounter Date Diagnosis Assessment Notes Treatment Notes Treatment Clinical Notes Oct, Cholecystitis (ICD-1 0 - K81.9) [facility] Other 02-14-2023 NotePatient Education Material [facility]COPY [facility] FOLLOW UP CARE ? For [...] physician?s office at: THANK YOU FOR CHOOSING [facility] ENDOSCOPY [facility]PART[facility] FOR YOUR PROCEDURE! [phone] This information is not intended to replace advice given to you by your health care provider. Make sure you discuss any questions you have with your health care provider. ExitCare? Patient Information ?2016 Decalog. Custom Education added 09/2018[facility]02-14-2023 NoteNursing Discharge Summary Entered On: 11/09/2022 [...] concerns documented : N/A no barriers noted Saraih Schreiber RN R 11/09/2022 8:43 EST Post-Hospital [...] Daughter Sariah Schreiber RN R 11/09/2022 8:43 [facility]* Encounter Date Diagnosis Assessment [...] INR being monitored, no bleeding complications noted [facility] Other 10-13-2022 History of Present illness Narrative* Luis Wang LPN - 07/08/2022 11:20 AM EDT Ortho Nurse - Established Patient Intake Room#: 2 4 month Right TKA, some pain of 1-2 when weed eating, going great Date: 07/08/2022 11:51 AM Patient: Tito Goncalves MR#: [id number] : 1945 Age: 77 y.o. Referring Physician: [...] the findings of the clinical desktop support associate and agree with their assessment. Ortho Nurse - Established Patient Intake Room#: 2 4 month Right TKA, some pain of 1-2 when weed eating, going great Date: 07/08/2022 11:51 AM Patient: Tito Goncalves MR#: [id number] : 1945 Age: 77 y.o. Referring Physician: [...] allergy, and sulfa antibiotics. documented in this [facility]08-08-2022 Hospital Discharge instructions Patient Education 05/03/2022 08:55:03 [...] urethra. Follow these instructions at home: Take xizz-xwk-glynrae and prescription medicines only as told by [...] 09/12/2006 Document Revised: 08/07/2019 Document Reviewed: 10/17/2017 Strut Patient Education 2020 [employer]. Follow Up Care 04/27/2021 11:05:10 With:GAGE UMANZOR, Mc Blackman, URL Address: [facility] [address], [place] [address] [phone] When: Unknown Comments:PRN [facility] 07-14-2022 History of Present illness Narrative* Shannen Tirso - 04/08/2022 10:00 AM EDT Ortho Nurse - Established Patient Intake Room#: 5 Date: 04/08/2022 9:50 AM Patient: Tito Goncalves MR#: [id number] : 1945 Age: 77 y.o. 3wk S/P [...] allergy, and sulfa antibiotics. * Azul Rachel APRN-RAILWAY TRACK WORKER - 04/08/2022 10:00 AM EDT HPI: Tito [...] pertinent portions of the clinical desktop support associate documentation was reviewed and agree. EDYTA Ayala I have reviewed the findings of the clinical desktop support associate and agree with their assessment. EDYTA Ayala Ortho Nurse - Established Patient Intake Room#: 5 Date: 04/08/2022 9:50 AM Patient: Tito Goncalves MR#: [id number] : 1945 Age: 77 y.o. 3wk S/P [...] allergy, and sulfa antibiotics. [facility] Miscellaneous Notes* Nursing Notes - Kirsten [...] Information Source Information Source patient Contact Information Criminal Investigator Customs Name Gini Medrano RN Case Manager's Living [...] that he plans to return home with [facility]. The patient states that his daughter [...] assist with discharge plans. documented in this encounterC[facility]06-21-2022 Note* Nursing Notes - Kirsten Crawford RN - 03/16/2022 3:01 PM EDT Discharge instructions gone over with pt and pt's daughter at this time by Regina GAVIN. Both, verbalize understanding and deny any further questions. Hemovac drain removed at this time, tip intact upon removal, pt tolerated well. [facility]06-21-20[facility] History of Present illness Narrative* Blanca [...] Transfer Skill: Sit To Stand, Rehab Eval Clare (Sit-Stand Transfers) (mod I) Physical Assist/Nonphysical Assist: Sit/Stand 1 person assist Weight-Bearing Restrictions: Sit/Stand weight-bearing as tolerated Assistive Device For Transfer: Sit/Stand armed chair Gait Skills, PT Eval Level of Clare: Gait (mod I) Weight-Bearing Restrictions: Gait weight-bearing as tolerated Assistive Device For Transfer: Gait 2 wheeled walker Gait Distance (600ft; patient demonstrates a good quality heel - toe pattern consistently throughtout treatment) Stair Negotiation Clare Level: Stair Negotiation supervision Physical Assist: Stair [...] 100mg 4.00 Total $ 20.60 Birgit Henriquez (Drying Machine Operator) reviewed medications with patient regarding indications, directions [...] Sit to Stand, Rehab Eval Level of Clare: Sit/Stand contact guard Physical Assist/Nonphysical Assist: Sit/Stand 1 person assist Weight-Bearing Restrictions: Sit/Stand weight-bearing as tolerated Assistive Device for Transfer: Sit/Stand wheeled walker;armed chair Transfer Skill: Stand to Sit, Rehab Eval Level of Clare: Stand/Sit contact guard Physical Assist/Nonphysical Assist: Stand/Sit [...] Prior Functional Impairment in Daily Activity [facility] Activity Inpatient Short Form Putting on/Taking Off Lower Body Clothing 3 - A Little Assistance Bathing 3 - A Little Assistance Toileting 3 - A Little Assistance Putting on/Taking Off Upper Body Clothing 3 - A Little Assistance Grooming 3 - A Little Assistance Eating 4 - No Assistance CURRENT [facility] Activity Raw Score 19 CURRENT AM-[facility] Activity Functional Limitation/Modifier 42.80% Currently Impaired in [...] initiation of treatment Therapist Information License # [id number] In addition to above, ambulated with CGA using FWW. Reclined in chair at end of session with his call light and personal items placed in reach. CLAUDIO Jacobo/Camron 03/16/2022 * Pato Gutierrez - 03/16/2022 11:46 AM EDT Pharmacy to Dose - Warfarin Note PATIENT: Tito Goncalves Room/Bed: [facility] Desired INR range: 2-3 Indication(s): Atrial Fibrillation Medications: No drug interactions were identified based on the patient's current therapy. Current Diet Status: Regular Recent bleeding/bleeding event: None noted Last labs: INR Date Value Ref Range Status 03/16/2022 1.37 (H) 0.85 - 1.10 Final Comment: 2.0-3.0 THERAPEUTIC RANGE 2.5-3.5 MECHANICAL VALVE RANGE Testing performed at [place], [place] [address] - ALBUMIN Date Value Ref Range Status 03/16/2022 3.3 (L) 3.5 - 5.0 G/dl Final - Plan: An order was placed for Coumadin 7.5 mg today x 1 based on INR = 1.37. A Pharmacist will continue to follow and make dose changes as clinically appropriate. Please contact pharmacy if there are any questions. Signed: Lopez Villafana Phone: [phone] Date/Time: 03/16/2022 11:46 AM * Yashira Valencia [...] 3/5) LLE WFL Supine to Sit Mobility Clare Level: Supine->Sit stand-by assist Physical Assist: Supine->Sit (1 person) Bed Features/Set-up: Supine->Sit Head of bed elevated Skilled Rationale Verbal cues;Sequencing Sit to Stand Transfer Clare Level: Sit->Stand stand-by assist Physical Assist: Sit->Stand (1 person) Assistive Device: Sit->Stand 2 wheeled walker;gait belt Skilled Rationale Verbal cues;Hand placement;Sequencing Stand to Sit Transfer Clare Level: Stand->Sit stand-by assist Physical Assist: Stand->Sit (1 person) Assistive Device: Stand->Sit 2 wheeled walker;gait belt Skilled Rationale Verbal cues;Hand placement;Sequencing;Controlled descent for sitting Sitting Balance Static Sitting-Level of Assistance Independent Standing Balance Static Standing-Level of Assistance Stand-by assist Dynamic Standing-Level of Assistance Stand-by assist Standing-Balance Support 2 wheeled walker;Gait belt Skilled Rationale Verbal cues;Full extension to upright positioning/posture;Upright gaze/neck extension Gait Assessment Clare Level: Gait contact guard assist Physical Assist: [...] ARTHROPLASTY KNEE TOTAL Left 06/23/2015 CHOLECYSTECTOMY 2012 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 Patient plans to return home with [facility]. His daughter will be staying with [...] Warfarin and PT/INR management. Questions answered regarding [facility], patient denies any other questions or needs at this time. Referral information with orders for PT/INR faxed to [facility], spoke with staff who confirm start of care for tomorrow. Follow up appointment scheduled for 04/08/22 @ 10:00 am. * Grupo Morgan RPh,PharmD - 03/15/2022 6:24 PM EDT Pharmacy to Dose - Warfarin Note PATIENT: Tito Goncalves Room/Bed: [facility] Desired INR range: 2-3 Indication(s): Atrial Fibrillation Last labs: INR Date Value Ref Range Status 03/15/2022 1.36 (H) 0.85 - 1.10 Final Comment: 2.0-3.0 THERAPEUTIC RANGE 2.5-3.5 MECHANICAL VALVE RANGE Testing performed at [place], [place] [address] - ALBUMIN Date Value Ref Range Status 02/18/2022 3.8 3.5 - 5.0 G/dl Final - Plan: An order was placed for 5 mg based on current Home Dosage. A Pharmacist will continue to follow and make dose changes as clinically appropriate. Please contact pharmacy if there are any questions. Signed: Grupo Morgan RPh,PharmD, Pharmacist Phone: [phone] Date/Time: 03/15/2022 6:24 PM * Samantha Miner [...] you require anything further documented in this [facility]06-21-2022 Note* Nursing Notes - Dian Roberts RN [...] anxious to head home and settle in. [facility]06-[facility] Hospital Discharge instructions* Discharge Instructions* Kirsten [...] days or until therapeutic with results to [facility]. , Contact Office ([phone]) if: > Total Knee ROM < 90 [...] sent through Care Everywhere. * docusate (oral/rectal) (Honduran) * oxycodone (Honduran) documented in this encounterCleveland [facility]06-21-2022 Note* Plan of Care - Regina [...] discharge/transition of care. Outcome: Adequate for Discharge [facility]06-21-2022 Note* Nursing Notes - Kirsten Crawford RN - 03/16/2022 11:39 AM EDT Assessment unchanged from previous by this nurse unless otherwise noted in flowsheet [facility]06-21-[facility] Hospital course Narrative* Javier-Cameron Ferguson MD - 03/16/2022 8:54 AM EDT Images from the original note were not included. Discharge Summary Name: Tito Goncalves Age: 77 y.o. Birthday: 1945 Admit Date: 03/15/2022 8:10 AM Discharge Date: 03/16/2022 Discharge Time: 03/16/2022 Discharge Unit: [facility] Rehab [facility] Unit Length of Stay: [...] insulin restless leg. Kidney stones, admitted to [facility] for elective rig ht total knee arthroplasty [...] as: COUMADIN STOP taking these medications Glucosamine-Chondroitin 4254-9384 MG/30ML LIQD Follow-up: No follow-up provider specified. Upcoming Appointments (up to five)-Some appointments for Medical Center outpatient clinics or diagnostic testing locations are not displayed below Provider Department Dept Phone 04/08/2022 10:00 AM [facility] [phone] Total coordination of discharge care taking greater that 35 minutes documented in this [facility]06-21-2022 Note* Plan of Care - Birgit Thakur [...] Reduction Devices: heel offloading device utilized Taken 03/16/2022308 Positioning/Transfer Devices: pillows Note: IVÁN Hose, Foot pumps T [facility]06-21-2022 Note* Nursing Notes - Birgit Thakur RN - 03/16/2022 3:09 AM EDT Assessment remains unchanged unless otherwise noted in flow sheet. Pt denies pain. Neuro/pulses unchanged. New bag of NS hung at this time. Vitals WDL. Pt denies any needs and call light is in reach. T [facility]06-20-2022 Note* Nursing Notes - Birgit Thakur RN - 03/15/2022 11:59 PM EDT Assessment remains unchanged unless otherwise noted in flow sheet. Pt denies any pain. Neuro/pulsesunchanged. NS infusing @ 100ml/hr and Ancef administered. Pt denies any needs and call light is in reach. T [facility]06-20-[facility] Note* Nursing Notes - Birgit Thakur RN - 03/15/2022 8:06 PM EDT RT called at this time due to O2 change from 1.5 to 1L. Pt also has home CPAP/BIPAP device. RT madeaware. [facility]06-[facility] Note* Nursing Notes - Araseli Ron RN - 03/15/2022 5:53 PM EDT Patient tolerating clear liquids at this time, diet advanced per orders. [facility]06-20-2022 Consult note* Domenico Ferguson MD - 03/15/2022 4:10 PM EDT History and Physical Examination 03/15/22 4:10 PM Chief Complaint: Right total knee arthroplasty History of Present Illness: Patient is a 77 y.o. male presents for [facility] for elective right total knee [...] mg by mouth daily. Historical Provider Glucosamine-Chondroitin 4851-2694 MG/30ML Liquid Take by mouth. Historical Provider [...] mg by mouth every evening. 03/14/2022 at 2114 ferrous sulfate 325 (65 Fe) MG tablet [...] 81 mg by mouth daily. 03/04/2022 Glucosamine-Chondroitin 6720-8643 MG/30ML Liquid Take by mouth. Multiple Vitamins-Minerals [...] OT, ST and SW. Domenico Ferguson MD [facility]06-20-2022 Consult note* Domenico Ferguson MD - 03/15/2022 4:10 PM EDT History and Physical Examination 03/15/22 4:10 PM Chief Complaint: Right total knee arthroplasty History of Present Illness: Patient is a 77 y.o. male presents for [facility] for elective right total knee [...] mg by mouth daily. Historical Provider Glucosamine-Chondroitin 8543-5677 MG/30ML Liquid Take by mouth. Historical Provider [...] mg by mouth every evening. 03/14/2022 at 2114 ferrous sulfate 325 (65 Fe) MG tablet [...] 81 mg by mouth daily. 03/04/2022 Glucosamine-Chondroitin 8152-9158 MG/30ML Liquid Take by mouth. Multiple Vitamins-Minerals [...] SW. Domenico Ferguson MD documented in this encounterRio Grande HospitalT2 Biosystems [id number] Note* Nursing Notes - Araseli Ron RN - 03/15/2022 2:26 PM EDT Patient to OR at this time. [employer] [id number] Note* Nursing Notes - Araseli Ron RN - 03/15/2022 11:57 AM EDT Patient assessment unchanged from previous. Patient ambulated to bathroom and voided. Patient denies any needs at this time. Call light in reach. [employer] [id number] Note* Nursing Notes - Gini Medrano RN - 02/18/2022 1:25 PM EDT 02/18/22 1324 Information Source Information Source patient Contact Information Criminal Investigator Customs Name Gini Medrano RN Case Manager's Living [...] that he plans to return home with [facility]. The patient states that his daughter [...] to follow and assist with discharge plans. [facility]04-28-[facility] History of Present illness Narrative* Luis Wang, BEVERLY - 2022 1:10 PM EDT Ortho Nurse - Established Patient Intake Room#: 1 Right knee pain of 9, no interventions, falls, or injuries, came in today with left knee pain, left knee revision 2016 Dr Bedoya Date: 2022 1:06 PM Patient: Tito Goncalves MR#: [id number] : 1945 Age: 77 y.o. 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 PHYSICAL EXAM: This is an alert, [...] joint space, subchondral sclerosis, osteophyte formation, and hzex-ub-btbv contact with posterior loosebodies. He has a [...] of limb, and ultimately loss of life. remote computer terminal operator expectations, risks and general implant surv ivorship were also discussed. Despite these risks, the patient would like to proceed with surgical planning. 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) [place] [employer] Other Evaluation + Plan note No data available for this section [facility] evaluation note* Diagnosis Right knee pain, unspecified chronicity- Primary Pain in prosthetic joint, sequela [facility] Preop testing- Primary Preoperative [...] Hyposmolality and/or hyponatremia [facility] [employer] Other Evaluation note* Diagnosis Hx of total knee arthroplasty, right- Primary [facility] Diagnosis Hx of total knee arthroplasty, right- Primary documented in this encounter [facility] [place] [facility]ADept[facility] of Dermatology Evaluation note* Diagnosis Hx of total knee arthroplasty, right- Primary [facility] Diagnosis 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- Primary Age-related nuclear cataract of both eyes Dry eyes Unspecified tear film insufficiency [facility] Diagnosis Onset Date Resolution Status Atrial fibrillation acute Chronic kidney disease acute GERD (gastroesophageal reflux disease) acute Hemopericardium acute Hypercholesterolemia acute Hypertension acute CUBA (obstructive sleep apnea) [facility] Work Phone: Evaluation note* Diagnosis Onset Date Resolution Status Atrial fibrillation acute Chronic kidney disease acute Hemopericardium acute Hypertension acute Obesity acute CUBA (obstructive sleep apnea) acute Cellulitis of right upper extremity noneactive [facility] Work Phone: Evaluation note* Diagnosis Onset Date Resolution Status Atrial fibrillation acute Chronic kidney disease acute Hemopericardium acute Hypertension acute Obesity acute CUBA (obstructive sleep apnea) acute Cellulitis of right upper extremity noneactive Atrial fibrillation acute Chronic kidney disease acute Hypertension acute Obesity acute CUBA (obstructive sleep apnea) acute Type 2 diabetes mellitus with hyperglycemia acute [facility] Work Phone: Evaluation note* Diagnosis Onset [...] Type 2 diabetes mellitus with hyperglycemia acute [facility] Work Phone: History general Narrative - Reported* Type Description Date Medical History hyperlipidemia Medical History GERD Medical History HTN Medical History a.fib Medical History recurrent choledocholithiasis Surgical History LEFT KNEE Surgical History CHOLECYSTECTOMY 2012 Hospitalization History see above [facility] Other [facility] general Narrative - Reported* Type Description Date [...] stone removal 10/2022 Hospitalization History see above [facility] Other History general Narrative - Reported* Type [...] stone removal 10/2022 Hospitalization History see above [facility] Other [facility] general Narrative - Reported* Type Description Date [...] History Colonoscopy 2020 Hospitalization History see above [facility] Other Hospital Discharge instructions Additional Instructions 1. Sleep on 2 pillows 2. You may shower late tomorrow afternoon, keep wounds dry and clean 3. Small amount of Vaseline to sutures twice daily 4. Tylenol or Motrin for discomfort 5. See Dr. Freitas in 1 [facility] Work Phone: Progress note No data available for this section [facility] reason for referral (narrative)* Name Reason for referral NA NA Dept. of Dermatology Reason for visit Narrative* Auth/Cert Specialty Diagnoses / Procedures Referred By Bret chan Referred To Contact Diagnoses Osteoarthritis of right knee, unspecified osteoarthritis type Osteoarthritis of right knee, unspecified osteoarthritis type [M17.11] Procedures [place] TOTAL KNEE ARTHROPLASTY ARTHROPLASTY KNEE TOTAL Pastor Bedoya MD [address] [place] [address] Referral ID Status Reason Start Date Expiration Date Visits Re quested Visits Authorized [id number] 02/01/2022 1 1 [facility] Summary Purpose Family History No Family [...] KNEE LEFT 3 VIEWS Azul Rachel, DEQUAN-TOBI [address] [place] [phone] Specialty Diagnoses / Procedures Referred By Contac t Referred To Contact Diagnoses Pain in prosthetic joint, sequela Procedures XR KNEE LEFT 3 VIEWS Pastor Bedoya MD [address] [place] [address] Referral ID Status Reason Start Date Expiration Date V isits Requested Visits Authorized [id number] New Request 2022 02/15/2023 1 1 Specialty Diagnoses / Procedures Referred By Contac t Referred To Contact Diagnoses Right knee pain, unspecified chronicity Procedures XR KNEE RIGHT 4+ VIEWS Pastor Bedoya MD [address] [place] [address] Referral ID Status Reason Start Date Expiration Date V isits Requested Visits Authorized [id number] New Request 01/15/2022 02/09/2023 1 1 Specialty Diagnoses / Procedures Referred By Contac t Referred To Contact Social Work Diagnoses Restless leg syndrome Stage 3a chronic kidney disease S/P total knee arthroplasty, right Paroxysmal atrial fibrillation Type 2 diabetes mellitus without complication, without long-term current use of insulin Domenico Ferguson MD [address] [place] [address] Referral ID Status Reason Start Date Expiration Date V isits Requested Visits Authorized [id number] New Request 03/16/2022 04/10/2023 1 1 Specialty Diagnoses / Procedures Referred By Contac t Referred To Contact Diagnoses Acute postoperative pain of right knee Samantha Miner [address] [place] [address] Referral ID Status Reason Start Date Expiration Date V isits Requested Visits Authorized [id number] New Request 03/15/2022 04/09/2023 1 1 Scheduling Instructions . Specialty Diagnoses / Procedures Referred By Contac t Referred To Contact Physical Therapy Diagnoses Hx of total knee arthroplasty, right Azul Rachel, SHOT POLISHER AND INSPECTOR-RAILWAY TRACK WORKER [address] [place] [address] [facility] [address] [place] [address] Referral ID Status Reason Start Date Expiration Date V isits Requested Visits Authorized [id number] New Request 04/08/2022 05/03/2023 1 1 Specialty Diagnoses / Procedures Referred By Contac t Referred To Contact Diagnoses Hx of total knee arthroplasty, right Procedures XR KNEE RIGHT 3 VIEWS Azul Rachel, SHOT POLISHER AND INSPECTOR-RAILWAY TRACK WORKER [address] [place] [address] Referral ID Status Reason Start Date Expiration Date V isits Requested Visits Authorized [id number] New Request 03/31/2022 04/25/2023 1 1 Specialty Diagnoses / Procedures Referred By Contac t Referred To Contact Diagnoses Hx of total knee arthroplasty, right Procedures XR KNEE RIGHT 3 VIEWS Pastor Bedoya MD [address] [place] [address] Referral ID Status Reason Start Date Expiration Date V isits Requested Visits Authorized [id number] New Request 07/02/2022 07/27/2023 1 1 Specialty Diagnoses / Procedures Referred By Bret chan Referred To Contact Diagnoses Hx of total knee arthroplasty, right Procedures XR BONE LENGTH STUDY Pastor Bedoya MD [address] [place] [address] Referral ID Status Reason Start Date Expiration Date V isits Requested Visits Authorized [id number] New Request 07/02/2022 07/27/2023 1 1 Referral ID Status Reason Start Date Expiration Date V isits Requested Visits Authorized [id number] New Request 03/15/2023 04/08/2024 1 1 History of Present Illness * Azul Rachel, SHOT POLISHER AND INSPECTOR-RAILWAY TRACK WORKER - 03/20/2020 11:20 AM EDT HPI: Patient [...] the findings of the clinical desktop support associate and agree with their assessment. Ortho Nurse Established Patient Intake Room#: 5 Date: 03/20/2020 11:10 AM Patient: Tito Goncalves MR#: [id number] : 1945 Age: 75 y.o. 3 yr [...] 03/20/2020 11:10 AM Patient: Tito Goncalves MR#: [id number] : 1945 Age: 75 y.o. 3 yr f/u L knee revision. Pt states that about the last couple months when moving from a lying postion in bed and turning, he has severe pain in bilat knees, which goes away once he is repositioned. Otherwise he reports he has been doing well. Referring Physician: Virginie, Azul, SHOT POLISHER AND INSPECTOR-RAILWAY TRACK WORKER Insurance: Payor: MEDICARE / Plan: MEDICARE A [...] section and content) DATE CREATED AUTHOR 03/21/2018 [facility] DATE CREATED AUTHOR AUTHOR'S ORGANIZ ATION 06/15/2019 [facility] DATE CREATED AUTHOR AUTHOR'S ORGANIZ ATION 03/25/2022 [facility] DATE CREATED AUTHOR AUTHOR'S ORGANIZ ATION 05/04/2022 [facility] DATE CREATED AUTHOR AUTHOR'S ORGANIZ ATION 10/04/2022 [facility] DATE CREATED AUTHOR AUTHOR'S ORGANIZ ATION 02/02/2023 [facility] DATE CREATED AUTHOR AUTHOR'S ORGANIZ ATION 03/05/2023 [facility] [place] [facility] DATE CREATED AUTHOR AUTHOR'S ORGANIZ ATION 03/20/2023 [facility] DATE CREATED AUTHOR AUTHOR'S ORGANIZ ATION 07/12/2023 [facility] DATE CREATED AUTHOR AUTHOR'S ORGANIZ ATION 03/06/2024 [facility] DATE CREATED AUTHOR AUTHOR'S ORGANIZ ATION 04/11/2024 [facility] DATE CREATED AUTHOR AUTHOR'S ORGANIZ ATION 04/16/2024 [facility] Reason for Visit (unrecogniz ed section and content) Reason Comments Follow-up Status Reason Specialty Diagnoses / Procedures Referred By Contact Referred To Contact New Request Diagnoses History of revision of total replacement of left knee joint Procedures XR KNEE LEFT 3 VIEWS Azul Rachel, DEQUAN-TOBI [address] [place] [address] Reason Comments Pain Specialty Diagnoses / Procedures Referred By Contac t Referred To Contact Diagnoses Pain in prosthetic joint, sequela Procedures XR KNEE LEFT 3 VIEWS Pastor Bedoya MD [address] [place] [address] Referral ID Status Reason Start Date Expiration Date V isits Requested Visits Authorized [id number] New Request 2022 02/15/2023 1 1 Specialty Diagnoses / Procedures Referred By Contac t Referred To Contact Diagnoses Right knee pain, unspecified chronicity Procedures XR KNEE RIGHT 4+ VIEWS Pastor Bedoya MD [address] [place] [address] Referral ID Status Reason Start Date Expiration Date V isits Requested Visits Authorized [id number] New Request 01/15/2022 02/09/2023 1 1 Specialty Diagnoses / Procedures Referred By Contac t Referred To Contact Diagnoses Hx of total knee arthroplasty, right Procedures XR KNEE RIGHT 3 VIEWS Azul Rachel, SHOT POLISHER AND INSPECTOR-RAILWAY TRACK WORKER [address] [place] [address] Referral ID Status Reason Start Date Expiration Date V isits Requested Visits Authorized [id number] New Request 03/31/2022 04/25/2023 1 1 Reason Comments Post Op Visit Specialty Diagnoses / Procedures Referred By Contac t Referred To Contact Diagnoses Hx of total knee arthroplasty, right Procedures XR KNEE RIGHT 3 VIEWS Pastor Bedoya MD [address] [place] [address] Referral ID Status Reason Start Date Expiration Date V isits Requested Visits Authorized [id number] New Request 07/02/2022 07/27/2023 1 1 Referral ID Status Reason Start Date Expiration Date V isits Requested Visits Authorized [id number] New Request 03/15/2023 04/08/2024 1 1 Reason Comments Retinal Injection Care Teams (unrecognized sec tion and content) Chapter Relations Administrator Relationship Specialty Start Date End Date Augustine Metz, DO [address] [place] [address] PCP - General Internal Medicine 01/24/17 Chapter Relations Administrator Relationship Specialty Start Date End Date Augustine Metz, DO [address] [place] [address] PCP - General Internal Medicine 01/24/17 Chapter Relations Administrator Relationship Specialty Start Date End Date Augustine Metz, DO [address] [place] [address] PCP - General Internal Medicine 01/24/17 Chapter Relations Administrator Relationship Specialty Start Date End Date Augustine Metz, DO [address] [facility] [place] [address] PCP - General Internal Medicine 01/24/17 Chapter Relations Administrator Relationship Specialty Start Date End Date Augustine Metz, DO [address] [facility] [place] [address] PCP - General Internal Medicine 01/24/17 Chapter Relations Administrator Relationship Specialty Start Date End Date Augustine Metz, DO [address] [facility] [place] [address] PCP - General Internal Medicine 01/24/17 Chapter Relations Administrator Relationship Specialty Start Date End Date Augustine Metz, DO [address] [facility] [place] [address] PCP - General Internal Medicine 01/24/17 Chapter Relations Administrator Relationship Specialty Start Date End Date IsaíasAugustine [address] [facility] [place] [address] PCP - General Internal Medicine 01/24/17 Chapter Relations Administrator Relationship Specialty Start Date End Date Isaías Augustine [address] [facility] [place] [address] PCP - General Internal Medicine 01/24/17 Chapter Relations Administrator Relationship Specialty Start Date End Date Augustine Metz MD [address] [place] [phone] PCP - General Internal Medicine 06/02/23 Chapter Relations Administrator Relationship Specialty Start Date End Date Augustine Metz MD [address] [place] [phone] PCP - General Internal Medicine 06/02/23 Team Status: Active Member Role Status Dates Augustine Metz DO Primary Care Provider Active Team Status: Active Member Role Status Neil Metz DO Primary Care Provider Active Start: December 16, 2023 LIBAN Graham Attending Provider Active Start : December 16, 2023 Team Status: Active Member Role Status Neil [...] anesthesia 2104 (Given - Provider: Birgit Thakur, RN) dexAMETHasone (DECADRON) injection 10 mg (COMPLETED) [...] 0811 (Given - Provid er: Kirsten Crawford, ROMAINE) glucose chewable tablet CHEW 16-32 g(Linked Group [...] to the hypoglycemia management protocol on Ellucid: D-VD-Npwqjhuioang Management Protocol insulin regular (HumuLIN R;NovoLIN R) [...] Patient/family refused)2108 (Given - Provider: Birgit Thakur, RN - Comment: BS 206 2u givenpeanut [...] 20 mmHg 0810 (Given - Provid er: Kirtsen Crawford RN) pantoprazole (PROTONIX) tablet DR 40 [...] RN) 030 (Given - Provider: Birgit Thakur, RN)1448 (Given - Provider: Kirsten Crawford RN [...] RN)1450 ($$New Bag$$ - Provider: Pankaj Eric APRN-SODDER)1606 (Paused - Provider: Chino Puga CRNA - [...] Regina Rios, ROMAINE)1146 (Stopped - Provider: Regina Rios RN) PRN Medication Order 03/14/2022 03/15/2022 03/16/2022 bisacodyl (DULCOLAX) suppository 10 mg 10 mg, Rectal, DAILY NEEDED, Starting on Tue03/15/22 at 1750, Until Tue03/16/22 at 1703, constipation, Post-op/Post-Proc ceFAZolin (ANCEF) 2 g in dextrose 100 mL premix IVPB (COMPLETED) 2 g, Intravenous, Administer over 30 Minutes, ESL TUTOR TO PROCEDURE, 1 dose, Starting on Tue03/15/22 [...] less than 60 mg/ml. If unresponsive call EMBEDDED CASE MANAGER HYDROmorphone (DILAUDID) injection 0.5 mg 0.5 [...] at 1703, Intra-op/Intra-Proc 1443 (Given - Provider: Domiink Bedoya MD - Comment: given to field) [...] to the hypoglycemia management protocol on Ellucid: K-UQ-Kdfwjxctzkjf Management Protocol
And dextrose 10% IV solution [...] less than 60 mg/ml. If unresponsive call EMBEDDED CASE MANAGER
And NOTIFY PHYSICIAN, Blood Glucose LESS THAN 70 mg/dl or greater than 400 mg/dl (CANCELED) Routine, CONTINUOUS, Starting on Tue03/15/22 at 1255, Until Specified
Who to Notify: CONGRESSIONAL AIDE/Physician
For all Blood Glucose LESS THAN 70 mg/dl, or greater than 400 mg/dl notify CONGRESSIONAL AIDE/Physician Goals (unrecognized section and content) Goals may [...] BE BASED ON THE PRIMARY CLINICAL RECORDS. [employer] provides no warranty or guarantee of the accuracy or completeness of information in this document.
[2024-04-18 07:57] LABS: Basophils Percent Auto 0.5 % (0.2-2.0); Eosinophils Absolute Auto 0.2 10^3/uL (0.0-0.7); Eosinophils Percent Auto 4.3 % (0.9-7.0); Hematocrit 36.8 % (42.0-54.0); Hemoglobin 11.6 g/dL (14.0-18.0); Lymphocytes Absolute Auto 1.5 10^3/uL (1.2-3.8); Lymphocytes Percent Auto 34.1 % (20.5-60.0); Mean Corpuscular HGB Conc 31.5 g/dL (29.9-35.2); Mean Corpuscular Hemoglobin 27.5 pg (25.9-34.0); Mean Corpuscular Volume 87.2 fL (80.0-94.0); Mean Platelet Volume 11.1 fL (9.5-13.5); Monocytes Absolute Auto 0.4 10^3/uL (0.3-0.8); Monocytes Percent Auto 9.4 % (1.7-12.0); Neutrophils Absolute Auto 2.3 10^3/uL (1.4-6.5); Neutrophils Percent Auto 51.7 % (43.0-75.0); Platelet Count 185 10^3/uL (150-450); Red Blood Count 4.22 10^6/uL (4.70-6.10); White Blood Count 4.4 10^3/uL (4.0-11.0)
[2024-04-18 08:53] LABS: Percent Iron Saturation 11.8 %
== END 2024-04-18 07:35 | disposition home or self-care (01) ==
LOC: LAB 07:35
PROVIDERS: PCP Internal Medicine; Visit Provider Internal Medicine
DX: D64.9 Anemia, unspecified (principal)
CPT/HCPCS: 36415; 82607; 82728; 83540; 83550; 85025

== ENCOUNTER 2024-04-25 07:20 | Outpatient (RCR) | payer MEDICARE, OTHER, SELFPAY ==
[2024-04-25 08:55] VITALS: BP 157/79; PULSE 59; TEMP 36.5; O2SAT 98
[2024-04-25] MEDS: IRON SUCROSE COMPLEX 300 MG in 0.9 % SODIUM CHLORIDE 250 ML 176.667 MG IV (09:03)
--- NOTE | 2024-04-25 10:00 | PC.NURSE ---
resting with eyes shut, tolerating infusion without any s/s of reaction
== END 2024-04-25 23:59 | disposition home or self-care (01) ==
LOC: INF 07:20
PROVIDERS: PCP Internal Medicine; Visit Provider Internal Medicine
DX: E61.1 Iron deficiency (principal)
CPT/HCPCS: 96365; 96366; J1756

== ENCOUNTER 2024-06-27 09:35 | Outpatient (OUT) | payer MEDICARE, OTHER, SELFPAY ==
--- OUTSIDE RECORDS SUMMARY | 2024-06-27 09:59 | XMS_ITS | CCD ---
Author Organization [facility] Care Team Providers Care Combination Operator Name Role Phone GENE FAJARDO Admitting Unavailable GENE FAJARDO Attending Unavailable AUGUSTINE METZ Primary Care Unavailable RYAN CARDENAS Referring Unavailable Augustine Metz Primary Care Provider Augustine Metz DO Primary Care Provider Augustine Metz DO Primary Care Provider Carmen Kahn Unavailable AUGUSTINE METZ Primary Care Physician Augustine Metz DO Primary Care Provider Damari Rojas Unavailable Unavailable Alyssa, Osman Delmis [...] ISAÍAS, DR PEREZ Admitting Unavailable ISAÍAS, DR PEERZ Attending Unavailable WEST, DR CARMEN Flynn Consulting [...] Unavailable FAWWAD, CARTER H Attending Unavailable FAWWAD, ACRTER H Admitting Unavailable BALL, DR PEREZ Primary [...] AZUL Attending Unavailable SELF, SELF Referring Unavailable ISAÍAS, AUGUSTINE Primary Care Unavailable Ball, Augustine Primary Care Unavailable Colin Song Admitting Unavailab Colin Tong Attending Unavailab Augustine Ruby MD Primary Care Provider DO Augustine Metz Primary Care Provider DO Augustine Freitas Attending Provider Augustine Freitas Attending Unavailable Augustine Freitas Admitting Unavailable Isaías, Augustine Primary Care Unavailable Isaías, Augustine Primary Care Unavailable Augustine Freitas Attending Unavailable Augustine Freitas Admitting Unavailable RAJESH, LIONEL Referring Unavailable RAJESH, LIONEL Referring Unavailable MOUKAOLIVER HUITRON Referring Unavailable MADISON PAUL Attending Unavailable RAJESH, LIONEL Referring Unavailable BRIGITTE PERRY Referring Unavailab le OLIVER CRANE Referring Unavailable MOUKARBELOLIVER Referring Unavailable MOUKARBELOLVIER Referring Unavailable MADISON PAUL Referring Unavailable OLIVER CRANE Attending Unavailable MAGGY MURPHY Attending Unavailable MOUKAOLIVER HUITRON Attending Unavailable RAJESH, LIONEL Referring Unavailable ELDELORES, MAGGY Attending Unavailable MADISON PAUL Referring Unavailable MOUKARBOLIVER RAWLS Admitting Unavailable DORI RHODES Attending Unavailable RAJESH, LIONEL Referring Unavailable MOUKARBCURLY, OLIVER Referring Unavailable MOUKARBEL, OLIVER Admitting Unavailable MOUKAELANA, OLIVER Attending Unavailable JOSE R DODD Attending Unavailable [...] Referring Unavailable JOSE R DODD Attending Unavailable OSMAN SHAH Attending Unavailable Allergies Allergy Classification Reported Allergen(s) Allergy Type Date of Onset Reaction(s) Facility Iodine (and Iodine containting drugs) (1 source) Iodine Drug Allergy 04-04-20 Unknown Reaction [facility] Penicillins (antibiotic) (1 source) Penicillins Drug Allergy 04-04-20 24 [facility] Shellfish (2 sources) Shellfish Food Allergy 04-04-20 Unknown Reaction [facility] Sulfonamides (antibiotic) (1 source) Sulfonamides (Antibiotic) Drug Allergy 04-04-20 24 Swelling [facility] (18 sources) Iodine; Translations: [iodine] Drug Allergy 08-31-20 09 Unknown, Unknown Reaction [facility] Repository (9 sources) Penicillins; Translations: [PENICILLINS] Drug allergy (disorder) 08-01-19 63 Unknown Reaction, Hives [facility] Repository (9 sources) Sulfonamides (Antibiotic); Translations: [SULFA (SULFONAMIDE ANTIBIOTICS)] Drug allergy (disorder) 08-31-19 93 Swelling [facility] Repository (2 sources) Shellfish Containing Products; Translations: [Shellfish Containing Products] Food allergy (disorder) 08-31-20 09 [facility] Repository (16 sources) Iodine; Translations: [iodine] Drug Allergy 08-31-20 09 Swelling, Unknown (qualifier value), Anaphylaxis [facility] (18 sources) Penicillin G Drug Allergy 10-20-19 13 Hives [facility] (14 sources) Shellfish Propensity to adverse reactions to drug 08-31-20 09 Swelling, Other [facility] (12 sources) Sulfonamides (Antibiotic) Propensity to adverse reactions to drug 10-20-19 13 Swelling [facility] (11 sources) Penicillins (Antibiotic) Drug allergy Unknown [facility] Other (17 sources) Shrimp product Propensity to adverse reactions 01-31-20 24 Unknown, Unknown Reaction [facility] (11 sources) Sulfonamides (Antibiotic) Drug allergy Unknown [facility] Other (5 sources) Penicillin; Translations: [penicillin] Drug Allergy Unknown (qualifier value) [facility] (1 source) Sulfonamides (Antibiotic); Translations: [sulfa drugs] Drug allergy Unknown (qualifier value) [facility] (1 source) No Alert Propensity to adverse reactions to drug 09-14-20 22 [facility] (1 source) Penicillin Drug Allergy 10-01-19 23 [facility] (1 source) Propensity to adverse reactions to drug 10-01-19 23 [facility] (1 source) Iodine Drug Allergy 08-30-20 13 [facility] Repository (1 source) Shellfish Drug allergy (disorder) 08-30-20 13 [facility] Rep[facility] (4 sources) sulfADIAZINE Drug Allergy Unknown [facility] Other (6 sources) Substance with sulfonamide structure and antibacterial mechanism of action (substance) Drug allergy 08-31-19 93 Rash, Swelling [facility] Other (1 source) sulfa drug; Translations: [sulfa drug] Propensity to adverse reactions to drug (disorder) [facility] Repository (2 sources) Penicillin V Drug Allergy 01-23-20 23 [facility] (2 sources) Penicillins Drug Allergy 08-01-19 63 Hives [facility] (2 sources) Other Allergy to substance 06-30-20 23 Other [facility] (2 sources) Shellfish-Derived Products Drug Allergy 10-20-19 13 Swelling [facility] (7 sources) Shellfish; Translations: [shellfish derived] Allergy to substance 01-31-20 Unknown Reaction [facility] (1 source) Iodine Drug Allergy 02-27-20 [facility] (1 source) Penicillins Drug allergy (disorder) 02-27-20 [facility] (1 source) Shrimp product Drug allergy (disorder) 02-27-20 [facility] (1 source) Sulfonamides (Antibiotic) Drug allergy (disorder) 02-27-20 [facility] Repository Medications Current Medications Medication Drug [...] 04/27/21 Status: Ordered take 2 tablets by [facility] every eight hours Tylenol 8 Hour 650 MG 2 tablets as needed Orally every 8 hrs Active amiodarone hydrochloride 200 mg oral tablet (7 sources) Antiarrhythmic Start: 01-31-2024 take 200 mg [...] Aggregation Inhibitor, Nonsteroidal Anti-inflammatory Drug Start: 10-01-2022 [id number] Medication aspirin aspirin 300 mg 10/01/2022 Active [...] cancel msg)) clopidogrel 75 mg oral tablet (7 sources) [id number] Platelet Inhibitor Start: 01-31-2024 take [...] AREDS PO) Take by mouth. 0 Active Multivitamin-[place] als-Lutein (A Thru Z High Potency) tablet (7 sources) Start: 11-10-2021 take 1 tablet by mouth twice daily Multivitamin-Mine rals-Lutein (A Thru Z High Potency) tablet Active 1 TAB PO Twice daily November 10, 2021 1:00am Start: 11-10-2021 take 1 tablet by wendy th once daily Fgfplbvihvol-Kongvlpx-Kkkuit (A Thru Z H igh Potency) tablet Active 1 TAB PO Daily November 10, 2021 1:00am mupirocin 0.02 mg/mg topical ointment (1 source) RNA Synthetase Inhibitor Antibacterial Start: 06-04-2024 Mupirocin Active 1 APPLIC TOPICAL Twice daily June 04, 2024 12:00am omeprazole 20 mg delayed release oral capsule (20 sources) Proton Pump Inhibitor Start: 12-27-2017 take 20 mg by mouth once daily Omeprazole Active 20 MG PO Daily November 10, 2021 1:00am primidone 250 mg oral tablet (1 source) Anti-epileptic Agent Start: 08-21-2022 [id number] Med ication omeprazole 20 mg capsule,delayed release omeprazole 20 mg capsule,delayed release 20 mg 08/21/2022 Active (Outside) therapeutic multivitamin-shale miner als tablet (7 sources) Start: 03-15-2022 take 1 [...] Drug Class(es) Dates Sig (Normalized) Sig (Original) benzonatate 200 mg oral capsule (2 sources) Non-narcotic Antitussive Start: 05-16-20 End: 06-04-20 take 200 mg by mouth three times daily Benzonatate Discontinued 200 MG PO Three times daily 25 07May 16, 2024 12:00am June 04, 2024 11:19am bisacodyl 10 mg rectal suppository (1 source) [...] tablet doxycycline hyclate 100 mg oral capsule (7 sources) Tetracycline-clas s Drug Start: 01-31-20 End: [...] a day for 7 days Oct, Not-Taking/PRN Molnupiravir (3 sources) Start: 05-16-20 End: 06-04-20 take 800 mg by mouth every twelve hours Molnupiravir Discontinued 800 MG PO Every 12 hours 40 May 16, 2024 2:04pm June 04, 2024 11:19am Start: 05-16-2024 End: 05-16-2024 take 800 mg by mouth every twelve hours Molnupiravir Discontinued 800 MG PO Every 12 hours 40 May 16, 2024 12:00am May 16, 2024 2:05pm Start: 05-16-2024 take 800 mg by mouth every twelve hours Molnupiravir Active 800 MG PO Every 12 hours 40 May 16, 2024 12:00am Multiple Vitamins-Minerals (MULTIVITAMIN ADULT PO) (3 sources) End: 2022 Multiple Vitamins-Minerals (MULTIVITAMIN ADULT PO) Take by [...] 31, 2024 3:31pm 7.5mg on Sat. 5mg [id number] Start: 01-02-2018 warfarin 5 MG tablet 1 [...] subarachnoid hemorrhage, unspecified] Chronic Biliary tract disease (18 sources) Obstruction of bile duct; Translations: [Obstruction of bile duct] 09-07-2023 Chronic Biliary tract disease (20 sources) Gallstone; Translations: [Calculus of gallbladder without [...] heart failure] Chronic Deficiency and other anemia (12 sources) Anemia; Translations: [Anemia, unspecified] 04-04-2024 Episodic Deficiency and other anemia (4 sources) Anemia, unspecified; Translations: [Anemia, unspecified] Onset: [...] STEPS INIT] Onset: 3 Episodic Esophageal disorders (20 sources) Gastroesophageal reflux disease without esophagitis; Translations: [...] face Onset: 3 Chronic Nonspecific chest pain (8 sources) Chest pain; Translations: [Chest pain, unspecified] Onset: 4 04-03-2024 Episodic Osteoarthritis (20 sources) Osteoarthritis of right knee joint; Translations: [Unilateral primary osteoarthritis, right knee] Onset: 3 Chronic Other aftercare (9 sources) Long-term current use of anticoagulant; Translations: [detention (current) use of anticoagulants] Episodic Other aftercare (2 sources) 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; Translations: [USP CURRNT USE ANTICOAGULANTS] Onset: 3 Episodic Other aftercare (5 sources) Encounter for therapeutic drug level monitoring; Translations: [ENC THERAPEUTC DRUG LEVL MONITORING] Onset: 3 Episodic Other aftercare (1 source) detention (current) 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; Translations: [[employer]ING [employer] CLERK CURRENT USE OF ASPIRIN] Onset: 3 Episodic Other aftercare (1 source) Other [place] (current) drug therapy; Translations: [OTH USP CURRENT DRUG THERAPY] Onset: 3 Episodic Other [...] nutritional; endocrine; and metabolic disorders (6 sources) Obesity; Translations: [Obesity, unspecified] 01-31-2024 Chronic Other nutritional; endocrine; and metabolic disorders (7 sources) Obesity, unspecified; Translations: [Obesity, unspecified] 01-31-2024 [...] caused by tuberculosis or sexually transmitted disease) (12 sources) Hemopericardium; Translations: [Hemopericardium, not elsewhere classified] 01-30-2024 Episodic Residual codes; unclassified (9 sources) Periodic limb movement disorder; Translations: [Periodic limb movement disorder] Chronic Residual codes; unclassified (16 sources) Obstructive sleep apnea syndrome; Translations: [Obstructive sleep apnea (adult) (pediatric)] 01-30-2024 Chronic Residual codes; unclassified (14 sources) Obstructive sleep apnea (adult) (pediatric); Translations: [...] TENDON NECK LEVL INT] Onset: 3 Episodic Superficial injury; contusion (6 sources) Abrasion of left cornea; Translations: [Injury of conjunctiva and corneal abrasion without foreign body, left eye, initial encounter] Onset: 3 Resolved: 4 08-29-2023 Episodic Unclassified (1 source) History of revision of left total knee arthroplasty; Translations: [History of revision of total replacement of left knee joint] Unclassified (1 source) Drug therapy finding 04-25-2020 Unclassified (5 sources) Chronic atrial fibrillation, unspecified; Translations: [CHRONIC ATRIAL FIBRILLATION UNSPEC] Onset: 3 Unclassified (1 source) Other pericardial effusion (noninflammatory); Translations: [Other pericardial effusion (noninflammatory)] Onset: 4 Viral infection (2 sources) COVID-19; Translations: [Other specified viral infection] 05-16-2024 Episodic Past or Other Problems Problem Classification Problem [...] CAUS ASPHYX INITIAL ENC] Onset: 2 Episodic Unclassified (9 sources) Elevated transaminase level; Translations: [Elevated transaminase level] Unclassified (1 source) Other pericardial effusion (noninflammatory); Translations: [Other pericardial effusion (noninflammatory)] Onset: Results Test Name Value Interpretation Reference Range Facility Basophils Auto (Bld) [#/Vol] on 04-18-2024 Basophils (Bld) [#/Vol] 0.0 10 3/uL 0.0-0.1 [facility] Basophils/100 WBC Auto (Bld) on 04-18-2024 Basophils/100 WBC (Bld) 0.5 % 0.2-2.0 [facility] Eosinophils/100 WBC Auto (Bl d)on 04-18-2024 Eosinophils/100 WBC (Bld) 4.3 % 0.9-7.0 [facility] Erythrocyte distribution wid th Auto (RBC) [Ratio]on 04-18-2024 Erythrocyte distribution width (RBC) [Ratio] 14.0 % 11.0-15.0 [facility] Hematocrit Auto (Bld) [Volum e fraction]on 04-18-2024 Hematocrit (Bld) [Volume fraction] 36.8 % Low 42.0-54.0 [facility] Hemoglobin [Mass/volume] in Bloodon 04-18-2024 Hemoglobin (Bld) [Mass/Vol] 11.6 g/dL Low 14.0-18.0 [facility] Iron binding capacity [Mass/ volume] in Serum or Plasmaon 04-18-2024 Iron binding capacity [Mass/Vol] 339.0 ug/dL 250.0-450.0 [facility] Iron saturation [Mass Fracti on] in Serum or Plasmaon 04-18-2024 Iron saturation [Mass fraction] 11.8 % [facility] Laboratory - Chemistry and C hemistry - challengeon 04-18-2024 Cobalamin (Vitamin B12) [Mass/Vol] 594.0 pg/mL 193.0-986.0 [facility] Ferritin [Mass/Vol] 20.0 ng/mL Low 26.0-388.0 [facility] Iron [Mass/Vol] 40.0 ug/dL Low 65.0-175.0 [facility] Laboratory - Hematology and Cell countson 04-18-2024 Immature granulocytes/100 WBC (Bld) 0.0 % 0.0-0.5 [facility] Leukocytes [#/volume] correc iván for nucleated erythrocytes in Blood by Automated counon 04-18-2024 WBC corrected for nucl RBC Auto (Bld) [#/Vol] 4.4 10 3/uL 4.0-11.0 [facility] Lymphocytes Auto (Bld) [#/Vo l]on 04-18-2024 Lymphocytes (Bld) [#/Vol] 1.5 10 3/uL 1.2-3.8 [facility] Lymphocytes/100 WBC Auto (Bl d)on 04-18-2024 Lymphocytes/100 WBC (Bld) 34.1 % 20.5-60.0 [facility] MCH Auto (RBC) [Entitic mass ]on 04-18-2024 MCH (RBC) [Entitic mass] 27.5 pg 25.9-34.0 [facility] MCHC Auto (RBC) [Mass/Vol]on 04-18-2024 MCHC (RBC) [Mass/Vol] 31.5 g/dL 29.9-35.2 [facility] MCV Auto (RBC) [Entitic vol] on 04-18-2024 MCV (RBC) [Entitic vol] 87.2 fL 80.0-94.0 [facility] Monocytes Auto (Bld) [#/Vol] on 04-18-2024 Monocytes (Bld) [#/Vol] 0.4 10 3/uL 0.3-0.8 [facility] Monocytes/100 WBC Auto (Bld) on 04-18-2024 Monocytes/100 WBC (Bld) 9.4 % 1.7-12.0 [facility] Neutrophils Auto (Bld) [#/Vo l]on 04-18-2024 Neutrophils (Bld) [#/Vol] 2.3 10 3/uL 1.4-6.5 [facility] Neutrophils/100 WBC Auto (Bl d)on 04-18-2024 Neutrophils/100 WBC (Bld) 51.7 % 43.0-75.0 [facility] No Panel Informationon 04-18 Eosinophils # (Auto) 0.2 10 3/uL 0.0-0.7 [facility] Immature Granulocyte # (Auto) 0.00 10 3/uL 0.00-0.03 [facility] Platelet mean volume Auto (B ld) [Entitic vol]on 04-18-2024 Platelet mean volume (Bld) [Entitic vol] 11.1 fL 9.5-13.5 [facility] Platelets Auto (Bld) [#/Vol] on 04-18-2024 Platelets (Bld) [#/Vol] 185 10 3/uL 150-450 [facility] RBC Auto (Bld) [#/Vol]on RBC (Bld) [#/Vol] 4.22 10 6/uL Low 4.70-6.10 [facility] Office Visiton 04-12-2024 Follow-up visit [id number] Amina Goncalves 1945 M Date Provider Department Center 04/12/2024 Daniel-MAGGY MURPHY CARD [facility] Family History Problem Relation Age of Onset Cancer Mother Heart attack Other Family Status - Relation Status Age at Mother Other Level of Service:[id number] SC OFFICE/OUTPATIENT ESTABLISHED MOD MDM 30 MIN Normal [facility] Basophils Auto (Bld) [#/Vol] on 04-02-2024 Basophils (Bld) [#/Vol] 0.0 10 3/uL 0.0-0.1 [facility] Basophils/100 WBC Auto (Bld) on 04-02-2024 Basophils/100 WBC (Bld) 0.6 % 0.2-2.0 [facility] Eosinophils/100 WBC Auto (Bl d)on 04-02-2024 Eosinophils/100 WBC (Bld) 3.3 % 0.9-7.0 [facility] Erythrocyte distribution wid th Auto (RBC) [Ratio]on 04-02-2024 Erythrocyte distribution width (RBC) [Ratio] 13.9 % 11.0-15.0 [facility] Estimated glomerular filtrat ion rate (GFR) non- Americanon 04-02-2024 GFR/1.73 sq M.predicted among non-blacks MDRD (S/P/Bld) [Vol rate/Area] 49 mL/min/{1.73_m2} Low >=60 [facility] Globulin Calc (S) [Mass/Vol] on 04-02-2024 Globulin (S) [Mass/Vol] 3.0 g/dL [facility] Hematocrit Auto (Bld) [Volum e fraction]on 04-02-2024 Hematocrit (Bld) [Volume fraction] 32.6 % Low 42.0-54.0 [facility] Hemoglobin [Mass/volume] in Bloodon 04-02-2024 Hemoglobin (Bld) [Mass/Vol] 10.3 g/dL Low 14.0-18.0 [facility] Laboratory - Chemistry and C hemistry - challengeon 04-02-2024 Albumin [Mass/Vol] 2.8 g/dL Low 3.4-5.0 [facility] ALP [Catalytic activity/Vol] 76 U/L 46-116 [facility] ALT [Catalytic activity/Vol] 14 U/L Low 16-63 [facility] AST [Catalytic activity/Vol] 11 U/L Low 15-37 [facility] Bilirubin [Mass/Vol] 0.4 mg/dL 0.2-1.0 [facility] Calcium [Mass/Vol] 8.4 mg/dL Low 8.5-10.1 [facility] Chloride [Moles/Vol] 107 mmol/L 98-107 [facility] CO2 [Moles/Vol] 28.1 mmol/L 21.0-32.0 [facility] Creatinine [Mass/Vol] 1.40 mg/dL High 0.70-1.30 [facility] GFR/1.73 sq M.predicted MDRD (S/P/Bld) [Vol rate/Area] 59 mL/min/{1.73_m2} Low >=60 [facility] Glucose [Mass/Vol] 141 mg/dL High 74-106 [facility] Potassium [Moles/Vol] 4.3 mmol/L 3.5-5.1 [facility] Protein [Mass/Vol] 5.8 g/dL Low 6.4-8.2 [facility] Sodium [Moles/Vol] 142 mmol/L 136-145 [facility] Urea nitrogen [Mass/Vol] 16.0 mg/dL 7.0-18.0 [facility] Urea nitrogen/Creatinine [Mass ratio] 11.4 mg/mg [facility] Laboratory - Hematology and Cell countson 04-02-2024 Immature granulocytes/100 WBC (Bld) 0.2 % 0.0-0.5 [facility] Leukocytes [#/volume] correc iván for nucleated erythrocytes in Blood by Automated counon 04-02-2024 WBC corrected for nucl RBC Auto (Bld) [#/Vol] 5.2 10 3/uL 4.0-11.0 [facility] Lymphocytes Auto (Bld) [#/Vo l]on 04-02-2024 Lymphocytes (Bld) [#/Vol] 1.7 10 3/uL 1.2-3.8 [facility] Lymphocytes/100 WBC Auto (Bl d)on 04-02-2024 Lymphocytes/100 WBC (Bld) 32.6 % 20.5-60.0 [facility] MCH Auto (RBC) [Entitic mass ]on 04-02-2024 MCH (RBC) [Entitic mass] 27.8 pg 25.9-34.0 [facility] MCHC Auto (RBC) [Mass/Vol]on 04-02-2024 MCHC (RBC) [Mass/Vol] 31.6 g/dL 29.9-35.2 [facility] MCV Auto (RBC) [Entitic vol] on 04-02-2024 MCV (RBC) [Entitic vol] 87.9 fL 80.0-94.0 [facility] Monocytes Auto (Bld) [#/Vol] on 04-02-2024 Monocytes (Bld) [#/Vol] 0.7 10 3/uL 0.3-0.8 [facility] Monocytes/100 WBC Auto (Bld) on 04-02-2024 Monocytes/100 WBC (Bld) 12.9 % High 1.7-12.0 [facility] Neutrophils Auto (Bld) [#/Vo l]on 04-02-2024 Neutrophils (Bld) [#/Vol] 2.6 10 3/uL 1.4-6.5 [facility] Neutrophils/100 WBC Auto (Bl d)on 04-02-2024 Neutrophils/100 WBC (Bld) 50.4 % 43.0-75.0 [facility] No Panel Informationon 04-02 Eosinophils # (Auto) 0.2 10 3/uL 0.0-0.7 [facility] Immature Granulocyte # (Auto) 0.01 10 3/uL 0.00-0.03 [facility] Troponin I High Sensitivity 7.8 pg/mL 4.0-76.1 [facility] Comment on above: CUT-OFF POINTS HAVE [...] volume (Bld) [Entitic vol] 12.5 fL 9.5-13.5 [facility] Platelets Auto (Bld) [#/Vol] on 04-02-2024 Platelets (Bld) [#/Vol] 139 10 3/uL Low 150-450 [facility] RBC Auto (Bld) [#/Vol]on RBC (Bld) [#/Vol] 3.71 10 6/uL Low 4.70-6.10 [facility] Serum or plasma albumin/glob ulin mass ratioon 04-02-2024 Albumin/Globulin [Mass ratio] 0.9 {ratio} [facility] Serum or plasma anion gap de terminationon 04-02-2024 Anion gap [Moles/Vol] 11.2 mmol/L [facility] Basophils Auto (Bld) [#/Vol] on 04-01-2024 Basophils (Bld) [#/Vol] 0.0 10 3/uL 0.0-0.1 [facility] Basophils/100 WBC Auto (Bld) on 04-01-2024 Basophils/100 WBC (Bld) 0.2 % 0.2-2.0 [facility] Eosinophils/100 WBC Auto (Bl d)on 04-01-2024 Eosinophils/100 WBC (Bld) 1.8 % 0.9-7.0 [facility] Erythrocyte distribution wid th Auto (RBC) [Ratio]on 04-01-2024 Erythrocyte distribution width (RBC) [Ratio] 13.7 % 11.0-15.0 [facility] Estimated glomerular filtrat ion rate (GFR) non- Americanon 04-01-2024 GFR/1.73 sq M.predicted among non-blacks MDRD (S/P/Bld) [Vol rate/Area] 43 mL/min/{1.73_m2} Low >=60 [facility] Globulin Calc (S) [Mass/Vol] on 04-01-2024 Globulin (S) [Mass/Vol] 3.3 g/dL [facility] Hematocrit Auto (Bld) [Volum e fraction]on 04-01-2024 Hematocrit (Bld) [Volume fraction] 35.6 % Low 42.0-54.0 [facility] Hemoglobin [Mass/volume] in Bloodon 04-01-2024 Hemoglobin (Bld) [Mass/Vol] 11.1 g/dL Low 14.0-18.0 [facility] INR in Platelet poor plasma by Coagulation assayon 04-01-2024 INR Coag (PPP) [Relative time] 0.98 {INR} [facility] Comment on above: DESIRED INR:2.0-3.0 CONDITIONS NOT LISTED BELOW2.5-3.5 FOR PROSTHETIC HEART VALVE REPLACEMENT2.5-3.5 RECURRENT THROMBOSIS Laboratory - Chemistry and C hemistry - challengeon 04-01-2024 Albumin [Mass/Vol] 3.3 g/dL Low 3.4-5.0 [facility] ALP [Catalytic activity/Vol] 91 U/L 46-116 [facility] ALT [Catalytic activity/Vol] 19 U/L 16-63 [facility] AST [Catalytic activity/Vol] 12 U/L Low 15-37 [facility] Bilirubin [Mass/Vol] 0.4 mg/dL 0.2-1.0 [facility] Calcium [Mass/Vol] 8.5 mg/dL 8.5-10.1 [facility] Chloride [Moles/Vol] 102 mmol/L 98-107 [facility] CO2 [Moles/Vol] 26.5 mmol/L 21.0-32.0 [facility] Creatinine [Mass/Vol] 1.56 mg/dL High 0.70-1.30 [facility] GFR/1.73 sq M.predicted MDRD (S/P/Bld) [Vol rate/Area] 52 mL/min/{1.73_m2} Low >=60 [facility] Glucose [Mass/Vol] 234 mg/dL High 74-106 [facility] Natriuretic peptide B (Bld) [Mass/Vol] 284.0 pg/mL <=1800.0 [facility] Potassium [Moles/Vol] 4.2 mmol/L 3.5-5.1 [facility] Protein [Mass/Vol] 6.6 g/dL 6.4-8.2 [facility] Sodium [Moles/Vol] 138 mmol/L 136-145 [facility] Urea nitrogen [Mass/Vol] 18.0 mg/dL 7.0-18.0 [facility] Urea nitrogen/Creatinine [Mass ratio] 11.5 mg/mg [facility] Laboratory - Hematology and Cell countson 04-01-2024 Immature granulocytes/100 WBC (Bld) 0.2 % 0.0-0.5 [facility] Leukocytes [#/volume] correc iván for nucleated erythrocytes in Blood by Automated counon 04-01-2024 WBC corrected for nucl RBC Auto (Bld) [#/Vol] 6.2 10 3/uL 4.0-11.0 [facility] Lymphocytes Auto (Bld) [#/Vo l]on 04-01-2024 Lymphocytes (Bld) [#/Vol] 1.3 10 3/uL 1.2-3.8 [facility] Lymphocytes/100 WBC Auto (Bl d)on 04-01-2024 Lymphocytes/100 WBC (Bld) 20.2 % Low 20.5-60.0 [facility] MCH Auto (RBC) [Entitic mass ]on 04-01-2024 MCH (RBC) [Entitic mass] 27.5 pg 25.9-34.0 [facility] MCHC Auto (RBC) [Mass/Vol]on 04-01-2024 MCHC (RBC) [Mass/Vol] 31.2 g/dL 29.9-35.2 [facility] MCV Auto (RBC) [Entitic vol] on 04-01-2024 MCV (RBC) [Entitic vol] 88.1 fL 80.0-94.0 [facility] Monocytes Auto (Bld) [#/Vol] on 04-01-2024 Monocytes (Bld) [#/Vol] 0.6 10 3/uL 0.3-0.8 [facility] Monocytes/100 WBC Auto (Bld) on 04-01-2024 Monocytes/100 WBC (Bld) 10.2 % 1.7-12.0 [facility] Neutrophils Auto (Bld) [#/Vo l]on 04-01-2024 Neutrophils (Bld) [#/Vol] 4.2 10 3/uL 1.4-6.5 [facility] Neutrophils/100 WBC Auto (Bl d)on 04-01-2024 Neutrophils/100 WBC (Bld) 67.4 % 43.0-75.0 [facility] No Panel Informationon 04-01 Troponin I High Sensitivity 6.7 pg/mL 4.0-76.1 [facility] Comment on above: CUT-OFF POINTS HAVE [...] Eosinophils # (Auto) 0.1 10 3/uL 0.0-0.7 [facility] Immature Granulocyte # (Auto) 0.01 10 3/uL 0.00-0.03 [facility] Platelet mean volume Auto (B ld) [Entitic vol]on 04-01-2024 Platelet mean volume (Bld) [Entitic vol] 11.8 fL 9.5-13.5 [facility] Platelets Auto (Bld) [#/Vol] on 04-01-2024 Platelets (Bld) [#/Vol] 152 10 3/uL 150-450 [facility] Prothrombin time (PT)on PT Coag (PPP) [Time] 10.4 s 9.0-11.6 [facility] RBC Auto (Bld) [#/Vol]on RBC (Bld) [#/Vol] 4.04 10 6/uL Low 4.70-6.10 [facility] Serum or plasma albumin/glob ulin mass ratioon 04-01-2024 Albumin/Globulin [Mass ratio] 1.0 {ratio} [facility] Serum or plasma anion gap de terminationon 04-01-2024 Anion gap [Moles/Vol] 13.7 mmol/L [facility] Office Visiton 03-22-2024 Follow-up visit [id number] Oliver Goncalvesnick Blackman 1945 M Date Provider Department Center 03/22/2024 OLIVER RUELAS [facility] Family History Problem Relation Age of Onset Cancer Mother Heart attack Other Family Status - Relation Status Age at Mother Other Level of Service:08719 [place] OFFICE/OUTPATIENT ESTABLISHED LOW MDM 20 MIN Normal [facility] HPon 03-16-2024 HP History Of Present I llness Tito Goncalves [...] a hospital admission) Transesophageal echo (JESSICA) 01/24/2024 [id number] Final Review of Systems Constitutional: Positive for [...] left atrial appendage closure per protocol. Normal [facility] NURSNOTEon 03-16-2024 NURSNOTE Bedside swallow stud y passed. Normal [facility] NURSNOTE RN educated pt on d/ c instructions. RN encouraged pt to voice any questions or concerns. Pt verbalizes no questions or concerns at this time. Normal [facility] Glucose mean value [Mass/vol ume] in Blood Estimated from glycated hemoglobinon 02-27-2024 Average glucose Estimated from glycated hemoglobin (Bld) [Mass/Vol] 160 mg/dL [facility] Laboratory - Hematology and Cell countson 02-27-2024 HbA1c (Bld) [Mass fraction] 7.2 % High 4.5-6.2 [facility] Comment on above: ADA RECOMMENDED LIMI T 4.0 - 6.0ADA THERAPEUTIC TARGET < 7.0ACTION SUGGESTED> 7.0 Capillary blood glucose winifred urement by glucometer (mass/volume)Ordered By: Augustine Freitas on 02-24-2024 Glucose [Mass/Vol] 124 mg/dL [facility] Comment on above: Random Glucose Refer ence Range is dependent on time and content of last meal. Glucose of more than 200 mg/dL in a nonstressed, ambulatory subject supports the diagnosis of Diabetes Mellitus. Result Comment: Bernard Glucose Reference Range is dependent on time and content of last meal. Glucose of more than 200 mg/dL in a nonstressed, ambulatory subject supports the diagnosis of Diabetes Mellitus. Performed By: #### G LULS #### Point of Care testing , Glucose Poct Glucometerson 0 02-24-2024 Commemt1 Glu2: Cleaned Meter Normal [facility] Comment on above: Result Comment: PERF ORMED BY: [facility] [address] [place] [address] PATHOLOGIST AIRPORT OPERATIONS SPECIALIST RCIKY STRANGE M.D. Performed By: #### G LULS #### Point of Care testing , No Panel InformationOrdered By: Augustine Freitas on 02-24-2024 Bedside Glucose Comment Glu2: cleaned meter [facility] 36on 02-16-2024 36 There are pictures i n media Normal [facility] ECG 12 lead ECGon 02-16-2024 ECG 12 lead ECG [facility] Main [address] [address] Electrocardiograph Report Signed Patient: Tito Goncalves MR#: [id number] : 1945 Acct:[id number] Age/Sex: 79 / M ADM Date: 02/16/24 Loc: PS Room: Type: [facility] Attending Dr: Augustine Freitas DO Ordering [...] T wave abnormality Confirmed by Viviane Herman ([id number]) on 02/17/2024 12:43:51 PM Referred By: JAMAR Electronically Signed By:Viviane Herman Transcribed By: MUS Signed By Viviane Herman MD 4 1243 Normal [facility] Office Visiton 02-09-2024 Follow-up visit [id number] Amina Goncalves 1945 [facility] Provider Department Center 02/09/2024 [facility] Family History Problem Relation Age of Onset Cancer Mother Heart attack Other Family Status - Relation Status Age at Mother Other Level of Service:19884 SC OFFICE/OUTPATIENT ESTABLISHED LOW MDM 20 MIN Reason for Visit and Comments: Atrial Fibrillation [80] - S/p LAAO with Amulet device Normal [facility] 30on 01-29-2024 30 The patient is Moder [...] fall injury Outcome: Progressing Flowsheets (Taken 01/29/2024 07) Free from fall injury: Assess patient frequently [...] Goal: Maintains hematologic stability Outcome: Progressing Normal [facility] BASIC METABOLIC PANELon 05-0 Anion gap [Moles/Vol] 11 mmol/L Normal 7-20 [facility] Comment on above: Performed By: #### L [id number] #### [facility]) [address] [place] [address] Calcium [Mass/Vol] 8.0 mg/dL Low 8.6-10.3 [facility] Comment on above: Performed By: #### L [id number] #### [facility] ([facility]) [address] [place] [address] Chloride [Moles/Vol] 109 mmol/L High 98-107 [facility] Comment on above: Performed By: #### L [id number] #### [facility] ([facility]) [address] [place] [address] CO2 [Moles/Vol] 24 mmol/L Normal 21-31 [facility] Comment on above: Performed By: #### L [id number] #### [facility] ([facility]) [address] [place] [address] Creatinine [Mass/Vol] 1.17 mg/dL Normal 0.70-1.30 [facility] Comment on above: Performed By: #### L [id number] #### [facility] ([facility]) [address] [place] [address] GLOMERULAR FILTRATION RATE ML/MIN/1.73 SQ M.PREDICTED 63.8 mL/min/1.73m*2 Normal >60.0 [facility] Comment on above: Result Comment: [facility]???s estimated glomerular filtration rate (eGFR) will no [...] individuals. Performed By: #### L [id number] #### [facility] [address] [place] [address] Glucose [Mass/Vol] 125 mg/dL High 70-100 [facility] Comment on above: Performed By: #### L [id number] #### [facility] [address] [place] [address] Potassium [Moles/Vol] 3.6 mmol/L Normal 3.5-5.1 [facility] Comment on above: Performed By: #### L [id number] #### [facility] ([facility]) [address] [place] [address] Sodium [Moles/Vol] 140 mmol/L Normal 136-145 [facility] Comment on above: Performed By: #### L [id number] #### [facility] ([facility]) [address] [place] [address] Urea nitrogen [Mass/Vol] 22 mg/dL Normal 7-25 [facility] Comment on above: Performed By: #### L [id number] #### [facility] ([facility]) [address] [place] [address] UREA NITROGEN/CREATININE (MASS RATIO) IN SER/PLAS 18.8 Normal [facility] Comment on above: Performed By: #### L [id number] #### [facility] ([facility]) [address] [place] [address] CBCon 01-29-2024 Erythrocyte distribution width (RBC) [Ratio] 14.6 % Normal 11.5-15.0 [facility] Comment on above: Performed By: #### L [id number] #### [facility] ([facility] [address] [place] [address] ERYTHROCYTE MEAN CORPUSCULAR HEMOGLOBIN CONCENTRATION (G/DL) BY AUTOMATED 32.8 g/dL Normal 32.0-35.0 [facility] Comment on above: Performed By: #### L [id number] #### [facility] [address] [place] [address] Hematocrit (Bld) [Volume fraction] 30.5 % Low 39.0-55.0 [facility] Comment on above: Performed By: #### L [id number] #### [facility] ([facility]) [address] [place] [address] Hemoglobin (Bld) [Mass/Vol] 10.0 g/dL Low 13.0-17.0 [facility] Comment on above: Performed By: #### L [id number] #### [facility] ([facility]) [address] [place] [address] MCH (RBC) [Entitic mass] 29.1 pg Normal 27.0-33.0 [facility] Comment on above: Performed By: #### L [id number] #### [facility] ([facility]) [address] [place] [address] MCV (RBC) [Entitic vol] 88.7 fL Normal 82.0-98.0 [facility] Comment on above: Performed By: #### L [id number] #### [facility] ([facility]) [address] [place] [address] PLATELETS (10*3/UL) IN BLOOD AUTOMATED COUNT 151 10*3/uL Normal 150-400 [facility] Comment on above: Performed By: #### L [id number] #### [facility] ([facility]) [address] [place] [address] RBC (Bld) [#/Vol] 3.44 10*6/uL Low 4.20-5.70 [facility] Comment on above: Performed By: #### L [id number] #### [facility] ([facility]) [address] [place] [address] WBC (Bld) [#/Vol] 6.43 10*3/uL Normal 4.00-10.60 [facility] Comment on above: Performed By: #### L [id number] #### [facility] [address] [place] [address] HEMOGLOBIN A1Con 05-05-2024 Glucose [Mass/Vol] 163 mg/dL Normal [facility] Comment on above: Performed By: #### L [id number] #### [facility] ([facility]) [address] [place] [address] HbA1c (Bld) [Mass fraction] 7.3 % High 4.0-6.0 [facility] Comment on above: Performed By: #### L [id number] #### [facility] ([facility]) [address] [place] [address] POCT GLUCOSE METER UNSOLICIT ED RESULTSon 01-29-2024 Glucose [Mass/Vol] 218 mg/dL High 70-105 [facility] Comment on above: Order Comment: Waive d Testing in the ED is performed under the ED CLIA certificate #[id number]. Result Comment: [email or web address] Performed By: #### L [id number] ####[facility] ([facility])[address] [place] [address] Glucose [Mass/Vol] 138 mg/dL High 70-105 [facility] Comment on above: Order Comment: Waive d Testing in the ED is performed under the ED CLIA certificate #[id number]. Result Comment: [email or web address] Performed By: #### L [id number] #### [facility] ([facility]) [address] [place] [address] 30on 01-28-2024 30 The patient is Moder [...] and behaviors that affect risk of falls [place] fall precautions as indicated by assessment Problem: [...] Goal: Maintains hematologic stability Outcome: Progressing Normal [facility] BASIC METABOLIC PANELon 05-0 Anion gap [Moles/Vol] 12 mmol/L Normal 7-20 [facility] Comment on above: Performed By: #### L [id number] ####[facility] ([place] [address])[address] [place] [address] Calcium [Mass/Vol] 7.7 mg/dL Low 8.6-10.3 [facility] Comment on above: Performed By: #### L [id number] ####[facility] ([address] [place] [address] Chloride [Moles/Vol] 108 mmol/L High 98-107 [facility] Comment on above: Performed By: #### L [id number] ####[facility] ([facility])[address] [place] [address] CO2 [Moles/Vol] 21 mmol/L Normal 21-31 [facility] Comment on above: Performed By: #### L [id number] ####[facility] ([facility])[address] [place] [address] Creatinine [Mass/Vol] 1.16 mg/dL Normal 0.70-1.30 [facility] Comment on above: Performed By: #### L [id number] ####[facility] ([facility])[address] [place] [address] GLOMERULAR FILTRATION RATE ML/MIN/1.73 SQ M.PREDICTED 64.5 mL/min/1.73m*2 Normal >60.0 [facility] Comment on above: Result Comment: [facility]???s estimated glomerular filtration rate (eGFR) will no [...] of individuals. Performed By: #### L [id number] ####[facility] ([facility] [place] [address] Glucose [Mass/Vol] 143 mg/dL High 70-100 [facility] Comment on above: Performed By: #### L [id number] ####[facility] ([facility])[address] [place] [address] Potassium [Moles/Vol] 3.3 mmol/L Low 3.5-5.1 [facility] Comment on above: Performed By: #### L [id number] ####[facility] ([facility])[address] [place] [address] Sodium [Moles/Vol] 138 mmol/L Normal 136-145 [facility] Comment on above: Performed By: #### L [id number] ####[facility] ([facility])[address] [place] [address] Urea nitrogen [Mass/Vol] 27 mg/dL High 7-25 [facility] Comment on above: Performed By: #### L [id number] ####[facility] [place] [address] UREA NITROGEN/CREATININE (MASS RATIO) IN SER/PLAS 23.3 Normal [facility] Comment on above: Performed By: #### L [id number] ####[facility] ([facility])[address] [place] [address] CBCon 01-28-2024 Erythrocyte distribution width (RBC) [Ratio] 14.4 % Normal 11.5-15.0 [facility] Comment on above: Performed By: #### L [id number] #### [facility] [address] [place] [address] ERYTHROCYTE MEAN CORPUSCULAR HEMOGLOBIN CONCENTRATION (G/DL) BY AUTOMATED 32.8 g/dL Normal 32.0-35.0 [facility] Comment on above: Performed By: #### L [id number] #### [facility] [address] [place] [address] Hematocrit (Bld) [Volume fraction] 31.4 % Low 39.0-55.0 [facility] Comment on above: Performed By: #### L [id number] #### [facility] ([facility]) [address] [place] [address] Hemoglobin (Bld) [Mass/Vol] 10.3 g/dL Low 13.0-17.0 [facility] Comment on above: Performed By: #### L [id number] #### [facility] ([facility]) [address] [place] [address] MCH (RBC) [Entitic mass] 29.0 pg Normal 27.0-33.0 [facility] Comment on above: Performed By: #### L [id number] #### [facility] ([facility]) [address] [place] [address] MCV (RBC) [Entitic vol] 88.5 fL Normal 82.0-98.0 [facility] Comment on above: Performed By: #### L [id number] #### [facility] ([facility]) [address] [place] [address] PLATELETS (10*3/UL) IN BLOOD AUTOMATED COUNT 134 10*3/uL Low 150-400 [facility] Comment on above: Performed By: #### L [id number] #### [facility] ([facility]) [address] [place] [address] RBC (Bld) [#/Vol] 3.55 10*6/uL Low 4.20-5.70 [facility] Comment on above: Performed By: #### L [id number] #### [facility] ([facility]) [address] [place] [address] WBC (Bld) [#/Vol] 6.52 10*3/uL Normal 4.00-10.60 [facility] Comment on above: Performed By: #### L [id number] #### [facility] ([facility]) [address] [place] [address] MAGNESIUMon 01-28-2024 Magnesium [Mass/Vol] 1.8 mg/dL Low 1.9-2.7 [facility] Comment on above: Performed By: #### L [id number] ####[facility] ([facility])[address] [place] [address] PHOSPHORUSon 01-28-2024 Magnesium [Mass/Vol] 2.5 mg/dL Normal 2.5-5.0 [facility] Comment on above: Performed By: #### L [id number] ####[facility] ([facility])[address] [place] [address] POCT GLUCOSE METER UNSOLICIT ED RESULTSon 01-28-2024 Glucose [Mass/Vol] 258 mg/dL High 70-105 [facility] Comment on above: Order Comment: Waive d Testing in the ED is performed under the ED CLIA certificate #[id number]. Result Comment: [email or web address] Performed By: #### L [id number] #### [facility] [address] [place] [address] Glucose [Mass/Vol] 133 mg/dL High 70-105 [facility] Comment on above: Order Comment: Waive d Testing in the ED is performed under the ED CLIA certificate #[id number]. Result Comment: [email or web address] Performed By: #### L [id number] ####[facility] ([employer])[address] [facility] [place] [address] Glucose [Mass/Vol] 260 mg/dL High 70-105 [facility] Comment on above: Order Comment: Waive d Testing in the ED is performed under the ED CLIA certificate #[id number]. Result Comment: [email or web address] Performed By: #### L [id number] ####[facility] ([facility])[address] [facility] [place] [address] Glucose [Mass/Vol] 140 mg/dL High 70-105 [facility] Comment on above: Order Comment: Waive d Testing in the ED is performed under the ED CLIA certificate #[id number]. Result Comment: [email or web address] Performed By: #### L [id number] #### [facility] ([facility]) [address] [place] [address] 30on 01-27-2024 30 Daily Case Managemen t Update Multidisciplinary rounds have been completed. 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 Pericardial drain remains in place. On amiodarone gtt. Plan to discharge home when medically cleared. Diet: Dietary Orders (From admission, onward) Start Ordered 01/26/24 1247 Special Kitchen Request Once Comments: Chicken noodle soup Fruit cup Diet coke Tilapia (plain) Lyons cake 01/26/24 1246 01/26/24 1246 Regular Diet [...] Answer: eval and treat 01/26/24 1241 Normal [facility] 30 The patient is Moder ately Stable [...] medication and electrolyte replacement as ordered Normal [facility] BASIC METABOLIC PANELon 05-0 Anion gap [Moles/Vol] 11 mmol/L Normal 7-20 [facility] Comment on above: Performed By: #### L [id number] ####[facility] ([facility])[address] [place] [address] Calcium [Mass/Vol] 7.9 mg/dL Low 8.6-10.3 [facility] Comment on above: Performed By: #### L [id number] ####[facility] ([facility])[address] [place] [address] Chloride [Moles/Vol] 108 mmol/L High 98-107 [facility] Comment on above: Performed By: #### L [id number] ####[facility] ([facility])[address] [place] [address] CO2 [Moles/Vol] 22 mmol/L Normal 21-31 [facility] Comment on above: Performed By: #### L [id number] ####[facility] ([facility])[address] [place] [address] Creatinine [Mass/Vol] 1.31 mg/dL High 0.70-1.30 [facility] Comment on above: Performed By: #### L [id number] ####[facility] ([facility])[address] [place] [address] GLOMERULAR FILTRATION RATE ML/MIN/1.73 SQ M.PREDICTED 55.7 mL/min/1.73m*2 Low >60.0 [facility] Comment on above: Result Comment: The [facility]???s estimated glomerular filtration rate (eGFR) will no [...] of individuals. Performed By: #### L [id number] ####[facility] ([facility])[address] [place] [address] Glucose [Mass/Vol] 154 mg/dL High 70-100 [facility] Comment on above: Performed By: #### L [id number] ####[facility] ([facility])[address] [place] [address] Potassium [Moles/Vol] 3.6 mmol/L Normal 3.5-5.1 [facility] Comment on above: Performed By: #### L [id number] ####[facility] ([facility])[address] [place] [address] Sodium [Moles/Vol] 137 mmol/L Normal 136-145 [facility] Comment on above: Performed By: #### L [id number] ####[facility] ([facility])[address] [place] [address] Urea nitrogen [Mass/Vol] 30 mg/dL High 7-25 [facility] Comment on above: Performed By: #### L [id number] ####[facility] ([facility])[address] [place] [address] UREA NITROGEN/CREATININE (MASS RATIO) IN SER/PLAS 22.9 Normal [facility] Comment on above: Performed By: #### L [id number] ####[facility] ([facility])[address] [place] [address] CBCon 01-27-2024 Erythrocyte distribution width (RBC) [Ratio] 14.5 % Normal 11.5-15.0 [facility] Comment on above: Performed By: #### L [id number] ####[facility] ([facility])[address] [place] [address] ERYTHROCYTE MEAN CORPUSCULAR HEMOGLOBIN CONCENTRATION (G/DL) BY AUTOMATED 32.2 g/dL Normal 32.0-35.0 [facility] Comment on above: Performed By: #### L [id number] ####[facility] ([facility])[address] [place] [address] Hematocrit (Bld) [Volume fraction] 31.4 % Low 39.0-55.0 [facility] Comment on above: Performed By: #### L [id number] ####[facility] ([facility])[address] [place] [address] Hemoglobin (Bld) [Mass/Vol] 10.1 g/dL Low 13.0-17.0 [facility] Comment on above: Performed By: #### L [id number] ####[facility] [place] [address] MCH (RBC) [Entitic mass] 29.0 pg Normal 27.0-33.0 [facility] Comment on above: Performed By: #### L [id number] ####[facility] ([facility])[address] [place] [address] MCV (RBC) [Entitic vol] 90.2 fL Normal 82.0-98.0 [facility] Comment on above: Performed By: #### L [id number] ####[facility] ([facility])[address] [place] [address] PLATELETS (10*3/UL) IN BLOOD AUTOMATED COUNT 134 10*3/uL Low 150-400 [facility] Comment on above: Performed By: #### L [id number] ####[facility] ([facility])[address] [place] [address] RBC (Bld) [#/Vol] 3.48 10*6/uL Low 4.20-5.70 [facility] Comment on above: Performed By: #### L [id number] ####[facility] [place] [address] WBC (Bld) [#/Vol] 8.70 10*3/uL Normal 4.00-10.60 [facility] Comment on above: Performed By: #### L [id number] ####[facility] ([facility] [place] [address] MAGNESIUMon 01-27-2024 Magnesium [Mass/Vol] 2.0 mg/dL Normal 1.9-2.7 [facility] Comment on above: Performed By: #### L [id number] #### [facility] ([facility]) [address] [place] [address] NURSNOTEon 01-27-2024 NURSNOTE Patient Name: Tito Goncalves [...] voiced no concerns at this time. The investment underwriter urged the primary RN to call the rapid team if any concerns arise overnight. Vic Euceda RN Rapid Response Team Nurse [phone] 01/27/2024 9:04 PM Normal [facility] NURSNOTE Patient Name: Tito Goncalves : 1945 Primary Care Physician: Augustine Metz MD Admission Date: 01/24/2024 RAPID RESPONSE TEAM ICU TRANSFER FOLLOW-UP NOTE SUBJECTIVE / OBJECTIVE: Follow-up for previous transfer out of the ICU notification for 01/26/2024 at 1627. ASSESSMENT / INTERVENTIONS: Recent Vital Signs: Vitals: 01/26/24 1940 01/26/24204901/27/24 0420 01/27/24 0800 BP: 99/62 107/59 117/62 [...] this time. Vital signs are stable via monitoring tech and daily lab values are unremarkable. If emergent concerns arise, please call rapid response team. Dominga Millard RN Rapid Response Team Nurse [phone] 01/27/2024 12:15 PM Normal [facility] PHOSPHORUSon 01-27-2024 Magnesium [Mass/Vol] 2.2 mg/dL Low 2.5-5.0 [facility] Comment on above: Performed By: #### L [id number] #### [facility] ([facility] [address] [place] [address] POCT GLUCOSE METER UNSOLICIT ED RESULTSon 01-27-2024 Glucose [Mass/Vol] 206 mg/dL High 70-105 [facility] Comment on above: Order Comment: Waive d Testing in the ED is performed under the ED CLIA certificate #[id number]. Result Comment: [email or web address] Performed By: #### L [id number] #### [facility] ([facility]) [address] [place] [address] Glucose [Mass/Vol] 187 mg/dL High 70-105 [facility] Comment on above: Order Comment: Waive d Testing in the ED is performed under the ED CLIA certificate #[id number]. Result Comment: [email or web address] Performed By: #### L [id number] #### [facility] ([employer]) [address] [place] [address] Glucose [Mass/Vol] 223 mg/dL High 70-105 [facility] Comment on above: Order Comment: Waive d Testing in the ED is performed under the ED CLIA certificate #[id number]. Result Comment: shod [email or web address] Performed By: #### L [id number] #### [facility] ([facility] [employer] [employer]) [address] [place] [address] Glucose [Mass/Vol] 160 mg/dL High 70-105 [facility] Comment on above: Order Comment: Waive d Testing in the ED is performed under the ED CLIA certificate #[id number]. Result Comment: shod [email or web address] Performed By: #### L [id number] #### [facility] ([facility]) [address] [place] [address] 30on 01-26-2024 30 Daily Case Managemen t Update Multidisciplinary rounds have been completed. Barriers to Discharge: 01/25- pericardial drain in place, slight EDEN, wants drain output to be less than 25 cc before it is pulled. ECHO today. pt ot ordered. from home wants to return. CB Diet: Dietary Orders (From admission, onward) Start Ordered 01/26/24 1247 Special Kitchen Request Once Comments: Chicken noodle soup Fruit cup Diet coke Tilapia (plain) Lyons cake 01/26/24 1246 01/26/24 1246 Regular Diet [...] Answer: eval and treat 01/26/24 1241 Normal [facility] BASIC METABOLIC PANELon 05-0 Anion gap [Moles/Vol] 12 mmol/L Normal 7-20 [facility] Comment on above: Performed By: #### L [id number] #### [facility] ([facility]) [address] [place] [address] Calcium [Mass/Vol] 7.6 mg/dL Low 8.6-10.3 [facility] Comment on above: Performed By: #### L [id number] #### [facility] ([facility]) [address] [place] [address] Chloride [Moles/Vol] 109 mmol/L High 98-107 [facility] Comment on above: Performed By: #### L [id number] #### [facility] ([facility]) [address] [place] [address] CO2 [Moles/Vol] 21 mmol/L Normal 21-31 [facility] Comment on above: Performed By: #### L [id number] #### [facility] ([facility]) [address] [place] [address] Creatinine [Mass/Vol] 1.62 mg/dL High 0.70-1.30 [facility] Comment on above: Performed By: #### L [id number] #### [facility] ([facility]) [address] [place] [address] GLOMERULAR FILTRATION RATE ML/MIN/1.73 SQ M.PREDICTED 43.2 mL/min/1.73m*2 Low >60.0 [facility] Comment on above: Result Comment: The [facility]???s estimated glomerular filtration rate (eGFR) will no [...] group of individuals. Performed By: #### L [id number] #### [facility] ([facility]) [address] [place] [address] Glucose [Mass/Vol] 152 mg/dL High 70-100 [facility] Comment on above: Performed By: #### L [id number] #### [facility] ([facility] [address] [place] [address] Potassium [Moles/Vol] 3.9 mmol/L Normal 3.5-5.1 [facility] Comment on above: Performed By: #### L [id number] #### [facility] [address] [place] [address] Sodium [Moles/Vol] 138 mmol/L Normal 136-145 [facility] Comment on above: Performed By: #### L [id number] #### [facility] ([facility]) [address] [place] [address] Urea nitrogen [Mass/Vol] 37 mg/dL High 7-25 [facility] Comment on above: Performed By: #### L [id number] #### [facility] [address] [place] [address] UREA NITROGEN/CREATININE (MASS RATIO) IN SER/PLAS 22.8 Normal [facility] Comment on above: Performed By: #### L [id number] #### [facility] ([facility]) [address] [place] [address] CBCon 01-26-2024 Erythrocyte distribution width (RBC) [Ratio] 14.5 % Normal 11.5-15.0 [facility] Comment on above: Performed By: #### L [id number] #### [facility] ([facility] [address] [place] [address] ERYTHROCYTE MEAN CORPUSCULAR HEMOGLOBIN CONCENTRATION (G/DL) BY AUTOMATED 31.9 g/dL Low 32.0-35.0 [facility] Comment on above: Performed By: #### L [id number] #### [facility] ([facility]) [address] [place] [address] Hematocrit (Bld) [Volume fraction] 33.2 % Low 39.0-55.0 [facility] Comment on above: Performed By: #### L [id number] #### [facility] ([facility]) [address] [place] [address] Hemoglobin (Bld) [Mass/Vol] 10.6 g/dL Low 13.0-17.0 [facility] Comment on above: Performed By: #### L [id number] #### [facility] ([facility]) [address] [place] [address] MCH (RBC) [Entitic mass] 29.1 pg Normal 27.0-33.0 [facility] Comment on above: Performed By: #### L [id number] #### [facility] ([facility] [address] [place] [address] MCV (RBC) [Entitic vol] 91.2 fL Normal 82.0-98.0 [facility] Comment on above: Performed By: #### L [id number] #### [facility] ([facility]) [address] [place] [address] PLATELETS (10*3/UL) IN BLOOD AUTOMATED COUNT 123 10*3/uL Low 150-400 [facility] Comment on above: Performed By: #### L [id number] #### [facility] ([facility]) [address] [place] [address] RBC (Bld) [#/Vol] 3.64 10*6/uL Low 4.20-5.70 [facility] Comment on above: Performed By: #### L [id number] #### [facility] ([facility]) [address] [place] [address] WBC (Bld) [#/Vol] 12.08 10*3/uL High 4.00-10.60 [facility] Comment on above: Performed By: #### L [id number] #### [facility] ([facility]) [address] [place] [address] MAGNESIUMon 01-26-2024 Magnesium [Mass/Vol] 1.9 mg/dL Normal 1.9-2.7 [facility] Comment on above: Performed By: #### L [id number] #### [facility] ([facility]) [address] [place] [address] NURSNOTEon 01-26-2024 NURSNOTE Patient Name: Tito Goncalves [...] time, but encouraged to reach out to INTERNETWORKING TECHNICIAN if anything changes overnight or with any further concerns. Suleman Ortiz RN Rapid Response Team Nurse [phone] 01/26/2024 10:20 PM Normal [facility] PHOSPHORUSon 01-26-2024 Magnesium [Mass/Vol] 3.7 mg/dL Normal 2.5-5.0 [facility] Comment on above: Performed By: #### L [id number] ####[facility] ([facility])[address] [facility] [place] [address] POCT GLUCOSE METER UNSOLICIT ED RESULTSon 01-26-2024 Glucose [Mass/Vol] 163 mg/dL High 70-105 [facility] Comment on above: Order Comment: Waive d Testing in the ED is performed under the ED CLIA certificate #[id number]. Result Comment: [email or web address] Performed By: #### L [id number] #### [facility] ([facility]) [address] [place] [address] Glucose [Mass/Vol] 206 mg/dL High 70-105 [facility] Comment on above: Order Comment: Waive d Testing in the ED is performed under the ED CLIA certificate #[id number]. Result Comment: [email or web address] Performed By: #### L [id number] ####[facility] ([facility])[address] [facility] [place] [address] Glucose [Mass/Vol] 155 mg/dL High 70-105 [facility] Comment on above: Order Comment: Waive d Testing in the ED is performed under the ED CLIA certificate #[id number]. Result Comment: [email or web address] Performed By: #### L [id number] #### [facility] ([facility]) [address] [place] [address] Glucose [Mass/Vol] 150 mg/dL High 70-105 [facility] Comment on above: Order Comment: Waive d Testing in the ED is performed under the ED CLIA certificate #[id number]. Result Comment: tful [email or web address] Performed By: #### L [id number] #### [facility] ([facility]) [address] [place] [address] 30on 01-25-2024 30 Daily Case Managemen t Update Multidisciplinary rounds have been completed. Barriers to Discharge: 01/24- patient here for planned atrial appendage closure. Per morning meeting the patient fell this morning, presumably from hypotension (BP in 60s/70s). Gave patient fluids to rescusitate but was unsuccessful. Patient was started on levophed and brought to MICU. ECHO showed pericardia effusion, went to laboratory animal caretaker this morning for pericardiocentesis. Patient has pericardial drain. May need pt ot given age but would anticipate home maybe with [facility]. CB Diet: Dietary Orders (From admission, onward) Start Ordered 01/24/24 1051 Regular Diet Diabetic Male (carb 60g/meal) Diet effective now Question Answer Comment Room Service? Yes Carbohydrate restriction: Diabetic Male (carb 60g/meal) 01/24/24 1050 Physician Expected Discharge Date: 01/25/2024 Discharge Delays: PT Six Click Score: 21 OT Six Click Score: PT Recommendations: OT Recommendations: New Consults: Normal [facility] BASIC METABOLIC PANELon 05-0 Anion gap [Moles/Vol] 18 mmol/L Normal 7-20 [facility] Comment on above: Performed By: #### L [id number] ####[facility] ([facility])[address] [place] [address] Calcium [Mass/Vol] 7.8 mg/dL Low 8.6-10.3 [facility] Comment on above: Performed By: #### L [id number] ####[facility] ([facility])[address] [place] [address] Chloride [Moles/Vol] 104 mmol/L Normal 98-107 [facility] Comment on above: Performed By: #### L [id number] ####[facility] ([facility])[address] [place] [address] CO2 [Moles/Vol] 20 mmol/L Low 21-31 [facility] Comment on above: Performed By: #### L [id number] ####[facility] ([facility])[address] [place] [address] Creatinine [Mass/Vol] 1.99 mg/dL High 0.70-1.30 [facility] Comment on above: Performed By: #### L [id number] ####[facility] ([facility])[address] [place] [address] GLOMERULAR FILTRATION RATE ML/MIN/1.73 SQ M.PREDICTED 33.7 mL/min/1.73m*2 Low >60.0 [facility] Comment on above: Result Comment: The [facility]???s estimated glomerular filtration rate (eGFR) will no [...] of individuals. Performed By: #### L [id number] ####[facility] ([facility])[address] [place] [address] Glucose [Mass/Vol] 257 mg/dL High 70-100 [facility] Comment on above: Performed By: #### L [id number] ####[facility] ([facility])[address] [place] [address] Potassium [Moles/Vol] 5.0 mmol/L Normal 3.5-5.1 [facility] Comment on above: Performed By: #### L [id number] ####[facility] ([facility])[address] [place] [address] Sodium [Moles/Vol] 137 mmol/L Normal 136-145 [facility] Comment on above: Performed By: #### L [id number] ####[facility] ([facility] [place] [address] Urea nitrogen [Mass/Vol] 30 mg/dL High 7-25 [facility] Comment on above: Performed By: #### L [id number] ####[facility] ([facility])[address] [place] [address] UREA NITROGEN/CREATININE (MASS RATIO) IN SER/PLAS 15.1 Normal [facility] Comment on above: Performed By: #### L [id number] ####[facility] ([facility])[address] [place] [address] BLOOD CULTUREon 01-25-2024 Bacteria identified Cx Nom (Bld) No growth at 5 days Normal [facility] Comment on above: Order Comment: Waive d Testing in the ED is performed under the ED CLIA certificate #[id number]. Performed By: #### L [id number] #### [facility] ([facility]) [address] [place] [address] Bacteria identified Cx Nom (Bld) No growth at 5 days Normal [facility] Comment on above: Performed By: #### L [id number] #### [facility] ([facility]) [address] [place] [address] CBCon 01-25-2024 Erythrocyte distribution width (RBC) [Ratio] 14.1 % Normal 11.5-15.0 [facility] Comment on above: Performed By: #### L [id number] #### [facility] ([facility]) [address] [place] [address] ERYTHROCYTE MEAN CORPUSCULAR HEMOGLOBIN CONCENTRATION (G/DL) BY AUTOMATED 31.9 g/dL Low 32.0-35.0 [facility] Comment on above: Performed By: #### L [id number] #### [facility] [address] [place] [address] Hematocrit (Bld) [Volume fraction] 34.5 % Low 39.0-55.0 [facility] Comment on above: Performed By: #### L [id number] #### [facility] ([facility]) [address] [place] [address] Hemoglobin (Bld) [Mass/Vol] 11.0 g/dL Low 13.0-17.0 [facility] Comment on above: Performed By: #### L [id number] #### [facility] ([facility]) [address] [address] MCH (RBC) [Entitic mass] 28.9 pg Normal 27.0-33.0 [facility] Comment on above: Performed By: #### L [id number] #### [facility] ([facility]) [address] [address] MCV (RBC) [Entitic vol] 90.6 fL Normal 82.0-98.0 [facility] Comment on above: Performed By: #### L [id number] #### [facility] ([facility]) [address] [place] [address] PLATELETS (10*3/UL) IN BLOOD AUTOMATED COUNT 191 10*3/uL Normal 150-400 [facility] Comment on above: Performed By: #### L [id number] #### [facility] ([facility]) [address] [place] [address] RBC (Bld) [#/Vol] 3.81 10*6/uL Low 4.20-5.70 [facility] Comment on above: Performed By: #### L [id number] #### [facility] ([facility]) [address] [place] [address] WBC (Bld) [#/Vol] 13.57 10*3/uL High 4.00-10.60 [facility] Comment on above: Performed By: #### L [id number] #### [facility] [address] [address] CONSULTon 01-25-2024 CONSULT ------ -- Attestation signed [...] Goncalves Age - 79 y.o. - 1945 [facility] # - [id number] Date of Admission - 01/24/2024 10:46 AM [...] complication and patient was admitted to the [facility] for over night monitoring to be continued [...] mL, i (more content not included)... Normal [facility] CT CERVICAL SPINE WO IV CONT Dennis [...] signed: Trenton Martinez. 9 Invalid Interpretation Code [facility] CT CHEST WO IV CONTRASTon CT CHEST [...] signed: Trenton Martinez. 5 Invalid Interpretation Code [facility] CT HEAD WO IV CONTRASTon CT HEAD [...] signed: Trenton Martinez. 1 Invalid Interpretation Code [facility] HPon 01-25-2024 HP H&P reviewed. The pa [...] procedure. He would like to proceed. Normal [facility] LACTIC ACID WITH 4 HOUR REFL EXon 01-25-2024 LACTATE (MMOL/L) IN SER/PLAS 2.1 mmol/L Normal 0.5-2.2 [facility] Comment on above: Performed By: #### L [id number] ####[facility] ([facility])[address] [place] [address] LACTATE (MMOL/L) IN SER/PLAS 3.3 mmol/L Critically high 0.5-2.2 [facility] Comment on above: Performed By: #### L [id number] #### [facility] ([facility]) [address] [place] [address] MAGNESIUMon 01-25-2024 Magnesium [Mass/Vol] 1.8 mg/dL Low 1.9-2.7 [facility] Comment on above: Performed By: #### L [id number] #### [facility] ([facility]) [address] [place] [address] POCT GLUCOSE METER UNSOLICIT ED RESULTSon 01-25-2024 Glucose [Mass/Vol] 164 mg/dL High 70-105 [facility] Comment on above: Order Comment: Waive d Testing in the ED is performed under the ED CLIA certificate #[id number]. Result Comment: tful ks2 Performed By: #### L [id number] #### [facility] ([facility]) [address] [place] [address] Glucose [Mass/Vol] 134 mg/dL High 70-105 [facility] Comment on above: Order Comment: Waive d Testing in the ED is performed under the ED CLIA certificate #[id number]. Result Comment: amur tad Performed By: #### L [id number] #### [facility] ([facility]) [address] [place] [address] Glucose [Mass/Vol] 167 mg/dL High 70-105 [facility] Comment on above: Order Comment: Waive d Testing in the ED is performed under the ED CLIA certificate #[id number]. Result Comment: amur tad Performed By: #### L [id number] #### [facility] ([facility]) [address] [place] [address] Glucose [Mass/Vol] 208 mg/dL High 70-105 [facility] Comment on above: Order Comment: Waive d Testing in the ED is performed under the ED CLIA certificate #[id number]. Result Comment: amur tad Performed By: #### L [id number] ####[facility] ([facility])[address] [place] [address] Glucose [Mass/Vol] 270 mg/dL High 70-105 [facility] Comment on above: Order Comment: Waive d Testing in the ED is performed under the ED CLIA certificate #[id number]. Result Comment: nbow en Performed By: #### L [id number] ####[facility] ([facility] [place] [address] PROCALCITONIN TESTon 01-24-2 024 PROCALCITONIN IN BLOOD 0.05 ng/mL Normal 0.00-0.10 [facility] Comment on above: Result Comment: Susp ected [...] and initial PCT<0.5ng/mL Performed By: #### L [id number] #### [facility] ([facility]) [address] [place] [address] PROTIME-INRon 01-25-2024 INR IN PPP BY COAGULATION ASSAY 1.24 High 0.90-1.10 [facility] Comment on above: Result Comment: ACCC P [...] RANGE. CHEST 1995;108:[id number]. Performed By: #### L [id number] #### [facility] ([facility]) [address] [place] [address] PROTHROMBIN TIME (PT) IN PPP BY COAGULATION ASSAY 15.7 Seconds High 12.3-14.8 [facility] Comment on above: Performed By: #### L [id number] #### [facility] ([facility]) [address] [place] [address] TROPONIN Ion 01-25-2024 Troponin I.cardiac [Mass/Vol] 0.84 ng/mL Critically high 0.00-0.04 [facility] Comment on above: Performed By: #### L [id number] ####[facility] ([facility])[address] [place] [address] 30on 01-24-2024 30 The patient is Moder [...] and maintained or improved Outcome: Progressing Normal [facility] BASIC METABOLIC PANELon 12-27 Anion gap [Moles/Vol] 13 mmol/L Normal 7-20 [facility] Comment on above: Performed By: #### L [id number] ####[facility] ([facility])[address] [place] [address] Calcium [Mass/Vol] 8.8 mg/dL Normal 8.6-10.3 [facility] Comment on above: Performed By: #### L [id number] ####[facility] ([facility])[address] [facility] [place] [address] Chloride [Moles/Vol] 103 mmol/L Normal 98-107 [facility] Comment on above: Performed By: #### L [id number] ####[facility] ([facility])[address] [place] [address] CO2 [Moles/Vol] 25 mmol/L Normal 21-31 [facility] Comment on above: Performed By: #### L [id number] ####[facility] ([facility])[address] [place] [address] Creatinine [Mass/Vol] 1.26 mg/dL Normal 0.70-1.30 [facility] Comment on above: Performed By: #### L [id number] ####[facility] ([facility])[address] [place] [address] GLOMERULAR FILTRATION RATE ML/MIN/1.73 SQ M.PREDICTED 58.4 mL/min/1.73m*2 Low >60.0 [facility] Comment on above: Result Comment: [facility]???s estimated glomerular filtration rate (eGFR) will no [...] of individuals. Performed By: #### L [id number] ####[facility] [place] [address] Glucose [Mass/Vol] 184 mg/dL High 70-100 [facility] Comment on above: Performed By: #### L [id number] ####[facility] ([facility] [place] [address] Potassium [Moles/Vol] 4.3 mmol/L Normal 3.5-5.1 [facility] Comment on above: Performed By: #### L [id number] ####[facility] ([facility])[address] [facility] [place] [address] Sodium [Moles/Vol] 137 mmol/L Normal 136-145 [facility] Comment on above: Performed By: #### L [id number] ####[facility] ([facility])[address] [facility] [place] [address] Urea nitrogen [Mass/Vol] 21 mg/dL Normal 7-25 [facility] Comment on above: Performed By: #### L [id number] ####[facility] ([facility])[address] [facility] [place] [address] UREA NITROGEN/CREATININE (MASS RATIO) IN SER/PLAS 16.7 Normal [facility] Comment on above: Performed By: #### L [id number] ####[facility] ([facility])[address] [place] [address] HPon 01-24-2024 HP History Of Present I llbrendon Goncalves is a 79 y.o. male presenting [...] In April 2019 he presented to the [facility] with atrial fibrillation with controlled ventricular [...] cardiac remod (more content not included)... Normal [facility] MRSA/MSSA DNA NASALon 2023 MRSA DNA Negative Normal Negative [facility] Comment on above: Order Comment: Testi ng [...] preclude nasal colonization. Performed By: #### L [id number] ####[facility] ([facility])[address] [place] [address] MSSA DNA Negative Normal Negative [facility] Comment on above: Order Comment: Testi ng [...] preclude nasal colonization. Performed By: #### L [id number] ####[facility] ([facility])[address] [place] [address] NURSNOTEon 01-24-2024 NURSNOTE CHG wipes completed. Normal [facility] POCT GLUCOSE METER UNSOLICIT ED RESULTSon 01-24-2024 Glucose [Mass/Vol] 146 mg/dL High 70-105 [facility] Comment on above: Order Comment: Waive d Testing in the ED is performed under the ED CLIA certificate #[id number]. Result Comment: mmah [email or web address] Performed By: #### L [id number] #### [facility] ([facility]) [address] [place] [address] TYPE AND SCREENon 01-24-2024 AB SCREEN Negative Normal [facility] Comment on above: Performed By: #### L [id number] ####[facility], ABO group Nom (Bld) A Normal [facility] Comment on above: Performed By: #### L [id number] ####[facility], RH TYPE IN BLOOD Positive Normal [facility] Comment on above: Performed By: #### L [id number] ####[facility], Basophils Auto (Bld) [#/Vol] on 01-18-2024 Basophils (Bld) [#/Vol] 0.0 10 3/uL 0.0-0.1 [facility] Basophils/100 WBC Auto (Bld) on 01-18-2024 Basophils/100 WBC (Bld) 0.4 % 0.2-2.0 [facility] Eosinophils/100 WBC Auto (Bl d)on 01-18-2024 Eosinophils/100 WBC (Bld) 2.3 % 0.9-7.0 [facility] Erythrocyte distribution wid th Auto (RBC) [Ratio]on 01-18-2024 Erythrocyte distribution width (RBC) [Ratio] 13.6 % 11.0-15.0 [facility] Estimated glomerular filtrat ion rate (GFR) non- Americanon 01-18-2024 GFR/1.73 sq M.predicted among non-blacks MDRD (S/P/Bld) [Vol rate/Area] 48 mL/min/{1.73_m2} Low >=60 [facility] Hematocrit Auto (Bld) [Volum e fraction]on 01-18-2024 Hematocrit (Bld) [Volume fraction] 37.0 % Low 42.0-54.0 [facility] Hemoglobin [Mass/volume] in Bloodon 01-18-2024 Hemoglobin (Bld) [Mass/Vol] 11.7 g/dL Low 14.0-18.0 [facility] Laboratory - Chemistry and C hemistry - challengeon 01-18-2024 Calcium [Mass/Vol] 8.6 mg/dL 8.5-10.1 [facility] Chloride [Moles/Vol] 103 mmol/L 98-107 [facility] CO2 [Moles/Vol] 30.4 mmol/L 21.0-32.0 [facility] Creatinine [Mass/Vol] 1.44 mg/dL High 0.70-1.30 [facility] GFR/1.73 sq M.predicted MDRD (S/P/Bld) [Vol rate/Area] 58 mL/min/{1.73_m2} Low >=60 [facility] Glucose [Mass/Vol] 140 mg/dL High 74-106 [facility] Potassium [Moles/Vol] 4.5 mmol/L 3.5-5.1 [facility] Sodium [Moles/Vol] 140 mmol/L 136-145 [facility] Urea nitrogen [Mass/Vol] 17.0 mg/dL 7.0-18.0 [facility] Urea nitrogen/Creatinine [Mass ratio] 11.8 mg/mg [facility] - Hematology and Cell countson 01-18-2024 Immature granulocytes/100 WBC (Bld) 0.0 % 0.0-0.5 [facility] Leukocytes [#/volume] correc iván for nucleated erythrocytes in Blood by Automated counon 01-18-2024 WBC corrected for nucl RBC Auto (Bld) [#/Vol] 4.8 10 3/uL 4.0-11.0 [facility] Lymphocytes Auto (Bld) [#/Vo l]on 01-18-2024 Lymphocytes (Bld) [#/Vol] 1.6 10 3/uL 1.2-3.8 [facility] Lymphocytes/100 WBC Auto (Bl d)on 01-18-2024 Lymphocytes/100 WBC (Bld) 33.8 % 20.5-60.0 [facility] MCH Auto (RBC) [Entitic mass ]on 01-18-2024 MCH (RBC) [Entitic mass] 28.3 pg 25.9-34.0 [facility] MCHC Auto (RBC) [Mass/Vol]on 01-18-2024 MCHC (RBC) [Mass/Vol] 31.6 g/dL 29.9-35.2 [facility] MCV Auto (RBC) [Entitic vol] on 01-18-2024 MCV (RBC) [Entitic vol] 89.6 fL 80.0-94.0 [facility] Monocytes Auto (Bld) [#/Vol] on 01-18-2024 Monocytes (Bld) [#/Vol] 0.6 10 3/uL 0.3-0.8 [facility] Monocytes/100 WBC Auto (Bld) on 01-18-2024 Monocytes/100 WBC (Bld) 11.8 % 1.7-12.0 [facility] Neutrophils Auto (Bld) [#/Vo l]on 01-18-2024 Neutrophils (Bld) [#/Vol] 2.5 10 3/uL 1.4-6.5 [facility] Neutrophils/100 WBC Auto (Bl d)on 01-18-2024 Neutrophils/100 WBC (Bld) 51.7 % 43.0-75.0 [facility] No Panel Informationon 01-17 Eosinophils # (Auto) 0.1 10 3/uL 0.0-0.7 [facility] Immature Granulocyte # (Auto) 0.00 10 3/uL 0.00-0.03 [facility] Orders Onlyon 01-18-2024 Orders Only [id number] Amina Goncalves e R 1945 Date Provider Department Center 01/18/2024 [facility] V[facility] Family History Problem Relation Age of Onset Cancer Mother Heart attack Other Family Status - Relation Status Age at Mother Other Normal [facility] Platelet mean volume Auto (B ld) [Entitic vol]on 01-18-2024 Platelet mean volume (Bld) [Entitic vol] 11.4 fL 9.5-13.5 [facility] Platelets Auto (Bld) [#/Vol] on 01-18-2024 Platelets (Bld) [#/Vol] 186 10 3/uL 150-450 [facility] RBC Auto (Bld) [#/Vol]on RBC (Bld) [#/Vol] 4.13 10 6/uL Low 4.70-6.10 [facility] Serum or plasma anion gap de terminationon 01-18-2024 Anion gap [Moles/Vol] 11.1 mmol/L [facility] Prep for Procedureon Prep for Procedure [id number] Amina Goncalves R 1945 Date Provider Department Center 11/24/2023 MADISON MOSES Family History Problem Relation Age of Onset Cancer Mother Heart attack Other Family Status - Relation Status Age at Mother Other Normal [facility] Optical coherence tomography study reporton 10-28-2023 [facility] Healthcare Radiology Study observation (narrative) [facility] Healthcare Prep for Procedureon 024 Prep for Procedure [id number] Amina Goncalves e R 1945 M Date Provider Department Center 10/27/2023 MADISON MOSES TIMO Cline Family History Problem Relation Age of Onset Cancer Mother Heart attack Other Family Status - Relation Status Age at Mother Other Normal [facility] Orders Onlyon 10-25-2023 Orders Only [id number] IvannaOlivernick wisdom R 1945 Date Provider Department Center 10/25/2023 MADISON MOSES Family History Problem Relation Age of Onset Cancer Mother Heart attack Other Family Status - Relation Status Age at Mother Other Normal [facility] Office Visiton 10-24-2023 Follow-up visit [id number] IvannaAmina wisdom R 1945 Date Provider Department Center 10/24/2023 271-MAGGY MURPHY TIMO [facility] Family History Problem Relation Age of Onset Cancer Mother Heart attack Other Family Status - Relation Status Age at Mother Other Level of Service:67700 SC OFFICE/OUTPATIENT ESTABLISHED LOW MDM 20 MIN Normal [facility] Prep for Procedureon 024 Prep for Procedure [id number] Amina Goncalves 1945 Date Provider Department Man 10/17/2023 MADISON MOSES Family History Problem Relation Age of Onset Cancer Mother Heart attack Other Family Status - Relation Status Age at Mother Other [facility] 36on 10-05-2023 37 Patient underwent hi s pre-LAAO JESSICA. He is a candidate for an occlusive device. Spoke to patient regarding next steps. He needs to have shared decision documentation with another physician. 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 Discussed possible procedure date of 11/01/2023. He states he would consider this and would further discuss with his daughter. Of note, he is planning a trip to [place] for 1 month mid October and he will return the end of November. Normal [facility] Telephoneon 10-05-2023 Telephone [id number] Amina Goncalves 1945 Date Provider Department Man 10/05/2023 MADISON MOSES Family History Problem Relation Age of Onset Cancer Mother Heart attack Other Family Status - Relation Status Age at Mother Other Normal [facility] ANESon 09-16-2023 ANES ------ -- Attestation signed [...] 0900 Procedure: TRANSESOPHAGEAL ECHO (JESSICA) Location: [facility] Vascular Lab Clinical information reviewed: Allergies Meds Physical Exam Airway Mallampati: II Cardiovascular Rhythm: regular Rate: normal Dental Pulmonary Breath sounds clear to auscultation Abdominal Anesthesia Plan ASA 3 other (Moderate sedation) Anesthetic plan and risks discussed with patient. Use of blood products discussed with patient who. Plan discussed with fellow and attending. Additional Equipment Requests Normal [facility] HPon 09-16-2023 HP ------ -- Attestation signed [...] there are no changes to the H&P. [facility] NURSNOTEon 09-16-2023 NURSNOTE RN educated pt on d/ c instructions. RN encouraged pt to voice any questions or concerns. Pt verbalizes no questions or concerns at this time. Normal [facility] NURSNOTE Bedside swallow stud y completed and passed. [facility] Telephoneon 09-15-2023 Telephone [phone] Amina Goncalves 1945 M Date Provider Department Center 09/15/2023 [facility] VASC LAB GA Heart[facility]AS Family History Problem Relation Age of Onset Cancer Mother Heart attack Other Family Status - Relation Status Age at Mother Other [facility] HP 09-06-2023 [facility] Cardiology - [facility] Subjective Tito Goncalves is a 78 y.o. year old male patient being seen to discuss LAAO. He presented to [facility] ED in Jun 2023 for fall. [...] In April 2019 he presented to the [facility] with atrial fibrillation with controlled ventricular [...] 1 tablet (more content not included)... Normal [facility] Office Visiton 09-06-2023 Follow-up visit [id number] Amina Goncalves 1945 Date Provider Department Center 09/06/2023 OLIVER RUELAS [facility] Family History Problem Relation Age of Onset Cancer Mother Heart attack Other Family Status - Relation Status Age at Mother Other Level of Service:84310 SC OFFICE/OUTPATIENT ESTABLISHED HIGH MDM 40-54 MIN Normal [facility] Coding Summaryon 07-11-2023 Coding Summary HTMLBase 64 OsbjtwruTTc5wWp+PGhlYWQ+PE 6EKCDtD43toKAkuN9mR6FBHCvW EfjiANPCUSkZPiYvpbHvUZ7uvJ NjZXJu IC8+WM4aPDRvZupuqNWpw4P4sI X6U17coh9yOTrhfNC8QFKpCtDa yvaty9zppLr0CQesOhxxJgGc JCGgkV83VLF0wU42Ck97cKXonK Qdc1kkcZo4JtAgNYBxOVE3bSfq FZbrn5BmEJXnB13hmPByq0J2 WJGnxPkmbUQyGcUqsYZ5wN8sPV yllyufd3kcqqavLqd7bj02jNMp c8E9iWB2L7KcoaE3LGBgxTBm BvhbhUPVqO3cvwtov4hrwllmKp CxBJKfQCx3EQo1DSQqbIiyEoUd GB21FJV8IKJhazXnR9ZpVYSr vWchBfK4z9T3Jg3NF6JCMaxnP2 VNTUFSWTwvdGQ+CF58ao52L2Es XzslYej2ZJAbEEZ3dDU2bK8h XTVqJYkqt3J3wVG1A1JjstDcck 7aq7wyNJVcUUfmB66rgKSgy6O0 LNMmiGQ2KXZtjZwjNcJzcP97 Oyc+JVAxpCnhg0VrSmvhu5usi6 tmkHn8KzykAACximMcpFqzLPV9 i9YkUg5jEEFsxVU6xJZ9oL7h FiMeYjM0OGqcH257PlJkwSJgKg daC72wI2AevWR+QJAnJxh0EMYl yQcsWR4lQ6BsUULnbmwwqRJb uLzoBI9sVSNtyxvtNQPxfI7zKK FmV9p3DxPcIlW0TAyjN9JjEGDu hxmmXa67fY2bOlEsJxS6MMhu X0ZstyA2NGSmzHXfQLavTXP9X8 9pq3Q4PEUqPFFrWYD2xMM7sU8h bGlnbjogbGVmdDsgdmVydGlj WWakHOboS649XDFniQvbZoCtYM luZyBEYXRlOiAgMTAvMTYvMjAy MzwvdGQ+MWVzUUF3bVqdGFSg sZElGEjgPm9zmNsssVeqXH5kTF HgkcdcIHQkbQ9dHMTveWFgsDlj WN3yTXVxwbztt624LuRzJLI9 YTBmxWDwL3VvaY6hHdXmCALnVD GmQ0TgpCQbXBdfO886USpyWmB1 EDCmbvKeX5VgXCSgdMdsRmY6 d8A1Qq4Hw2TsxxqhF5TyhGUzKw LbNcygXSh8P9JoJltolIV+PC90 XVQmHC25MIn9PVG9rZptTQuk EKLjF1YyvC7fUfNpNZIiKTNiGu c+PHRhYmxlIHdpZHRoPScxMDAl CjTozJvhXM0gRi9cNDXaHVZh uTochODoJxGfk9vsSLAwEWyuHG 5hvBktJ4XtlSD9BMYay5y7Tb32 B17cQ5HddDL+CLBxlQY7zQC2 xQ1jIyIiDqJ7DLouV746PoIscJ XaDknis0rfe0gvzDr4LjM3RSMo eqNctRvlCRF4f1JeLo98U93u IHdpZHRoPSIxNSUiIHZhbGlnbj 5aeK2zCm7+DRRluLG0yEI4tS3c TjMlNnB5XNwcV294IsIbgOJr Vawur4kte3zfkCb1LzXbGVLsdh HhlKnfWKO6e8JqSq95D2CwlNtv r5EwHrn1la72hDWbq5Q0sZG8 E6TpAEObgdbnvMHogJsnWL1oJO QivcznINXdnA5aXZLoW2q8QaNf YxB5SYouM3RgzvO9SZWebHPv JDThaVIStZ5pmpujs9owhozlDf GgDFWgJEd2GQs3DKNefJldWzPo QJX1ImY9UGL3eGBseY0hlOpx qmeduP9uIfh+DJQ3uEGpoIDOQQ 1lOjwvdGQ+TGDhNNU1uJptGWsn EGDnrD4tHIWuC6z0DfDxOgQ4 TRmwU9NajbW6SGLduKWhPIPdfQ WYnI6yvqkyk8nqdykvApDjLQKy HHg9ZLu8KPJmdCzaQiBnQFW3 TaH9ILM6kVWthH0veQvejzfexN 9wOyc+EnngkKsmOIA1PNj8K1Xr Mjc3BKIwcYvuBF5etPRyTJps Po5naVbenEecQW1fMDSbyguyg0 64PfPhn0vlMTZkfUQlIScmPMB7 I20cy1C4IZXmBEFsWDF6nCT7 bE6oiLwzwtgxzUWrkNxecsMzdA jgPUgmZBfrL432ZYRqcTylSjAn AVf7R1YsZmq1PQLlbZykXY4e zIAaWBbwBx2zeIteqUseXC6tQU Mccqytn793PzDao7prIWObhGNt FNdsCQX5V38xd5I6YJHcWTIu XNX4tUG8eA3ulRayikjfkEHblM mrkySlgXulXIghKTrbB325KXQn vCpnRiOocLq8R4FsPgu4ZJOc sVsnDR0hyPSiSAbcAa2boNkvbX stYI0mGBRzncfnb909ItBft0lb LGZkkPEeFMsqVSV6A45sf6Z0 ELZxPJAfEMX5qOW9fX5fxYwfmd ogbGVmdDsgdmVydGljYWwtYWxp X477BOUbzVxpWzKfzEehgwLg IAamKBb3D2XhFdyggVZ+PC90YW DtNA59dILnjXBro3vsiCb9KmZm VEJkPPP6bScdCUuto1TcKYRp F90xsMGji8H1GJTgvSncbUHnAa MqrTK7uM3uCBwrqdxgp9iykijt Cyuwm5lmvu11wN81Q68rTMec EBMjVPKdLQRjAOOvlLumoz3kzD 9wIi8+UMPluRK7mHY7vU6mMWFa YdQ5XCbfD145NvBjcGVmEfxa w5jgw9omrSq4FdV5ZSEzayZgwT rtQVU0l0JjVz51F47uKJzsUGXf SRZfSHNyTZSdcYfrem5keV9d Ii8+NCXkzHU4hEZ5dD3kIwHfCc W1LRykJ980FkVjzDOcBsyhN25u B4PmdCG+TGErTke6AQFgpClc UK3zoAHgPEjiLp0eNVP8KxKtIp FbDIbhT5YuCFKqvnwzdaiboSG6 JPQiCTVtyL34Ho5gyEcwVTNt sTDYxZ9cmauhr3hrpxfxJcKgSL DbSSn3TDi7NKHevAazArUtIFD6 PuU0UXI5mRJeaH0gtHatsfdi tF7nW0UeKLQshfcaZd20bN4wAp QtJgD5LBxcKsr+T4FEMRLbYNPT Y5YSZAYFXOJPIWPWSP23XP40 zXKkp1Z4hUW2B8QlWVFdsmxklh skyAB6XQOeJZRrvN01tCVjUHqo Je0zv5J9i550UNWqGUKciA92 Ga4xpMvuABVatBTFdE9wtqlcv6 vjlqfkIdEjTJNbKJc6LLc0QTAw fPsnSgKaIEP9VcP6WCY4cSWp fU4dwNtikshwwY9fApb+MDQvMj rqLNx7DxlsuJV+CBAbSTU9rEsj MThmBZEfqI5zIGRqX0e0MdMd CoE8ZShaL9NoFZUpmlqpGy10iS 3hOmFjBxX5WDsoD4ZdcpS3SVNm aNZdOWoxTTS2F90ms7S5BLEi WEInCSZ2uAG5nV3maSoalsmgfO EynYzlsvDuyOtfPHknZQfuG283 FJPxrEdaPnu6BAkmVDFpNV90 QV79vYDuw5R0zOS6G6UoEUVnlq ntxdnjcCV0BVOaFEMboO53aVMo GSiuXa1cc6R4u748EHObMAAn eY10Rv1xwWeqORMmdOWEsF7wrv nhw9fcnzqpNcLjZLAcOVv7YPj0 HGYoeYaeYyBdYQD6IcZ0MBI1 aTXqxJ3ecXsmwrmbqS1sVgb+TU FMRTwvdGQ+PRWwZES4qIxwRByw VREkgC2wTWUkP7h7SpOsNeR3 FBhcW4EoFMCfwfagZm23rI9gYe BsIhZ5SMfuU3OxdxK2IQDitDCh YUgnILP1N08zf4Q1JGXyDEGh GUD8oYL6fD7wxIkfvueffXWbzW plrtMzcSjaDZkoTEswW912UYAs rZigObNiZROgOO5zoFgysWA+ QH39cw52G9FrFfquJkw5MINxGO W2tUC1iW7bKKUjAQhvh9U8nAC9 J1QhuiByec8lr8mjEEWnXPsk Y90duFWva3A2LGMlyKT6VBNgaJ vjUwEryO35Ddc+CCNrqCwzo0Wu Hhiax1tqk0cisEf4BvLyGAPz luDtsVgaPPU0n1RrZr96B72hRW jtENQqRWUmIBPuDKJvmZvthj1u oJ8eFo2+PDShqBU7kXR0tJ9o UtSuLyV6JFcvA146DbZsvKHvMq qjm9uax7dysRz6KfJrWHWcaqIp aUjcUYG5q5GmKm07W8AhyYiy o2ZgVji5cp29nODlp2U0yFG0D8 VaLYOtutavnWOdvBcsWK9aKBDw ccfdUMExxQ7qEZFdM0s2WuNg FzB4YXgfQ1KjhnZ2SZClfGArHR PhgBOKmL6gcgaaf8srekhpOnNb BCJoPCw4EJy4VWNtkLmiHdNe EKM0DsE4OFO8yFSjiU2lnJjquf ejbW2yCcd+IEw3w6ozrIVyLK6e dTC6JK08OZ73yMBqz2F3tPS7 Z5BmXXKzbknbynkhjEP0DNXeZO KhmY49Dj4bsRmeMd7eZGYjZJK0 AWZfnMAxO0TwzZ0iErMtJEGh PHNkW1DieVAdFRnxG774AJqnEi F1BBRpriLlX3GsWFOwsGbkSnX0 g0H0Ib1KUH75VG91ZK98pNPm s2B0nRN3O7VnQMRtwypapykjpR Y6USEcQWXsgK54Zf7xpQosUk2g MTZfZNG0NQPlhLZsB1GrfE7b KzOwJADxWTFwH0QrpLCgYLjsK2 86VMrhTkP7HUUljlOvX6VhAEJg pUrmWtD8l7I2Ix1DMn12UQ68 OT64gZThp8T4hVO4X1FmUSTwhl egnhkpzXB0TODfMMDxsY81Pb0s rSdgLw2oXDGpLHC2GKKqcMOu Q1KpyG4lMhQxIUKmDEJgP9LsjF NuLKhjW829MAklVdY7DPTacvEp K1IkCODhoVzeZeO2o2Z7Dr5X DGepnic2E8FyYsywdDL+PC90YW SvIX75xAXnnTJkr6nyeUp3RuRc QADtLPH3dOemYSsye4PuTQOl Y29 (more content not included)... [facility] ED Clinical Summaryon 2022 ED Clinical Summary [facility] Emergency Department [address] [place] [address] [id number] ED Clinical Summary PERSON INFORMATION Name: TITO GONCALVES Age: 78 Years Sex: MALE : 1945 MRN: Acct#: Visit Reason: Eye Injury; Fall; FALL/LT EYE LAC Arrival: 07/05/2023 16:48:26 Discharge: 07/05/2023 18:40:00 LOS: 000 01:52 Check In: 07/05/2023 16:48:26 Checkout:07/05/2023 18:40:00 Address: [facility] [address] PCP: Augustine Metz PROVIDER INFORMATION Provider Role [...] Patient/family/caregiver verbalizes understanding of instructions given Comment: [facility] ED Patient Education Noteon 07-05-2023 ED Patient Education Note Education Materials [facility] ED Patient Summaryon 023 ED Patient Summary [facility] Emergency Department [address] [place] [id number] PATIENT DISCHARGE INSTRUCTIONS Patient Information Name: TITO GONCALVES Age: 78 Years Date of : 1945 [facility]: [id number] Reason For Visit: Eye Injury; Fall; FALL/LT EYE LAC Arrival Time: 07/05/2023 16:48:26 Primary Care Physician: Augustine Metz Attending Physician: Colin Song DO Comment: Visit Diagnosis: Diagnoses This Visit Eye Injury ([id number]) Fall ([id number]) The Pharmacy at [facility] is open Tuesday through Tuesday from [...] alcohol and/or drug addiction problems; contact the [facility] 18/04 Crisis Hotline -Text 8QEGX hf [phone]. If you received any narcotics, sedation, or [...] and treatment you received today in the [facility] Emergency Department were for an urgent problem and are not intended as complete care. It is important for you to follow up with a doctor, nurse practitioner, or physician?s assistant education director for ongoing care. If your symptoms become [...] so we can reach you if necessary. [facility] Emergency Department has provided you with a complete list of medications post discharge. Please inform your bookkeeping assistant/provider of your visit and for further instruction [...] relieve symptom (more content not included)... Normal [facility] Phone Msgon 02-01-2023 Phone Msg [...] mailed to his address on file. Normal [facility] CBC AUTO DIFFon 2023 BASO # 0.0 103/ul Normal 0.0-0.1 [facility] Comment on above: Performed By: #### C BC #### [facility] [address] [place] [address] Dr. Arjun Menjivar Basophils/100 WBC (Bld) 0.4 % Normal 0.2-2.0 [facility] Comment on above: Performed By: #### C BC #### [facility] [address] [address] [address] Arjun Menjivar EO # 0.1 103/ul Normal 0.0-0.7 [facility] Comment on above: Performed By: #### C BC #### [facility] [address] [place] [address] Dr. Arjun Menjivar Eosinophils/100 WBC (Bld) 1.5 % Normal 0.9-7.0 [facility] Comment on above: Performed By: #### C BC #### [facility] [address] [place] [address] Dr. Arjun Menjivar Erythrocyte distribution width (RBC) [Ratio] 13.7 % Normal 11.0-15.0 [facility] Comment on above: Performed By: #### C BC #### [facility] [address] [place] [address] Dr. Arjun Menjivar Hematocrit (Bld) [Volume fraction] 41.9 % Critically low 42.0-54.0 [facility] Comment on above: Performed By: #### C BC #### [facility] [address] [place] [address] Dr. Arjun Menjivar Hemoglobin (Bld) [Mass/Vol] 13.7 g/dL Critically low 14.0-18.0 [facility] Comment on above: Performed By: #### C BC #### [facility] [address] [place] [address] Dr. Arjun Menjivar IG # 0.02 10e3/ul Normal 0.00-0.03 [facility] Comment on above: Performed By: #### C BC #### [facility] [address] [place] [address] Dr. Arjun Menjivar IG % 0.3 % Normal 0.0-0.5 [facility] Comment on above: Performed By: #### C BC #### [facility] [address] [place] [address] Dr. Arjun Menjivar LYMPH # 1.4 103/ul Normal 1.2-3.8 [facility] Comment on above: Performed By: #### C BC #### [facility] [address] [place] [address] Dr. Arjun Menjivar Lymphocytes/100 WBC (Bld) 16.9 % Critically low 20.5-60.0 [facility] Comment on above: Performed By: #### C BC #### [facility] [address] [place] [address] Dr. Arjun Menjivar MANUAL DIFF REQ NO Normal [facility] Comment on above: Performed By: #### C BC #### [facility] [address] [place] [address] Dr. Arjun Menjivar MCH (RBC) [Entitic mass] 28.8 pg Normal 25.9-34.0 [facility] Comment on above: Performed By: #### C BC #### [facility] [address] [place] [address] Dr. Arjun Menjivar MCHC (RBC) [Mass/Vol] 32.7 g/dL Normal 29.9-35.2 [facility] Comment on above: Performed By: #### C BC #### [facility] [address] [place] [address] Dr. Arjun Menjivar MCV (RBC) [Entitic vol] 88.2 fL Normal 80.0-94.0 [facility] Comment on above: Performed By: #### C BC #### [facility] [address] [place] [address] Dr. Arjun Menjivar MONO # 0.5 103/ul Normal 0.3-0.8 [facility] Comment on above: Performed By: #### C BC #### [facility] [address] [place] [address] Dr. Arjun Menjivar Monocytes/100 WBC (Bld) 5.9 % Normal 1.7-12.0 [facility] Comment on above: Performed By: #### C BC #### [facility] [address] [place] [address] Dr. Arjun Menjivar NEUT # 6.0 103/ul Normal 1.4-6.5 [facility] Comment on above: Performed By: #### C BC #### [facility] [address] [place] [address] Dr. Arjun Menjivar Neutrophils/100 WBC (Bld) 75.0 % Normal 43.0-75.0 [facility] Comment on above: Performed By: #### C BC #### [facility] [address] [place] [address] Dr. Arjun Menjivar Platelet mean volume (Bld) [Entitic vol] 11.4 fL Normal 9.5-13.5 [facility] Comment on above: Performed By: #### C BC #### [facility] [address] [place], [place] [address] Dr. Arjun Menjivar PLT 169 103/ul Normal 150-450 [facility] Comment on above: Performed By: #### C BC #### [facility] [address] [place], [place] [address] Dr. Arjun Menjivar RBC 4.75 106/ul Normal 4.70-6.10 [facility] Comment on above: Performed By: #### C BC #### [facility] [address] [place], [place] [address] Dr. Arjun Menjivar WBC 8.0 103/ul Normal 4.0-11.0 [facility] Comment on above: Performed By: #### C BC #### [facility] [address] CSPINE WO CONon [...] SALINA ESPINOZA Date: 2023 16:25 Normal [facility] CT HEAD WO CONon 2023 CT [...] by: TOSHIA ANDRES Date: 2023 21:[address] [facility] PROF 14(COMP METB)on 04-28-2 023 Albumin [Mass/Vol] 3.7 g/dL Normal 3.4-5.0 [facility] Comment on above: Performed By: #### C MP ####[facility] [address] [address]Dr. Tannashukri Otto Albumin/Globulin [Mass ratio] 1.1 {ratio} Normal [facility] Comment on above: Performed By: #### C MP ####[facility] [address] [place] [address]Dr. Arjun Menjivar ALP [Catalytic activity/Vol] 87 U/L Normal 46-116 [facility] Comment on above: Performed By: #### C MP ####[facility] [address] [place], [place] [address]Dr. Arjun Menjivar ALT [Catalytic activity/Vol] 26 U/L Normal 16-63 [facility] Comment on above: Performed By: #### C MP ####[facility] [address] [place], [place] [address]Dr. Arjun Menjivar Anion gap [Moles/Vol] 9.2 mmol/L Normal [facility] Comment on above: Performed By: #### C MP ####[facility] [address] [place], [place] [address]Dr. Arjun Menjivar AST [Catalytic activity/Vol] 20 U/L Normal 15-37 [facility] Comment on above: Performed By: #### C MP ####[facility] [address] [place], [place] [address]Dr. Arjun Menjivar Bilirubin [Mass/Vol] 0.4 mg/dL Normal 0.2-1.0 [facility] Comment on above: Performed By: #### C MP ####[facility] [address] [place], [place] [address]Dr. Arjun Menjivar Calcium [Mass/Vol] 9.1 mg/dL Normal 8.5-10.1 [facility] Comment on above: Performed By: #### C MP ####[facility] [address] [place], [place] [address]Dr. Arjun Menjivar Chloride [Moles/Vol] 105 mmol/L Normal 98-107 [facility] Comment on above: Performed By: #### C MP ####[facility] [address] [place] [id number]. Arjun Menjivar CO2 [Moles/Vol] 28.9 mmol/L Normal 21.0-32.0 [facility] Comment on above: Performed By: #### C MP ####[facility] [address] [place] [id number]. Arjun Menjivar Creatinine [Mass/Vol] 1.23 mg/dL Normal 0.70-1.30 [facility] Comment on above: Performed By: #### C MP ####[facility] [address] [place] [address]Dr. Arjun Menjivar EGFR-AF COMORAN >60 Normal >=60 [facility] Comment on above: Performed By: #### C MP ####[facility] [address] [place] [address]Dr. Arjun Otto EGFR-NON AF COMORAN 57 mL/min/1.73m2 Critically low >=60 [facility] Comment on above: Performed By: #### C MP ####[facility] [address] [place] [address]Dr. Arjun Menjivar Globulin (S) [Mass/Vol] 3.4 g/dL Normal [facility] Comment on above: Performed By: #### C MP ####[facility] [facility] [address] [address]Dr. Arjun Menjivar Glucose [Mass/Vol] 126 mg/dL Critically high 74-106 [facility] Comment on above: Performed By: #### C MP ####[facility] [address] [place] [address] [id number]. Arjun Menjivar Potassium [Moles/Vol] 4.1 mmol/L Normal 3.5-5.1 [facility] Comment on above: Performed By: #### C MP ####[facility] [address] [address]Dr. Arjun Otto Protein [Mass/Vol] 7.1 g/dL Normal 6.4-8.[address] [facility] Comment on above: Performed By: #### C MP ####[facility] [address] [address]Dr. Arjun Menjivar Sodium [Moles/Vol] 139 mmol/L Normal 136-145 [facility] Comment on above: Performed By: #### C MP ####[facility] [address] [place], [place] [address]Dr. Arjun Menjivar Urea nitrogen [Mass/Vol] 12.0 mg/dL Normal 7.0-18.0 [facility] Comment on above: Performed By: #### C MP ####[facility] [address] [place], [place] [address]Dr. Arjun Menjivar Urea nitrogen/Creatinine [Mass ratio] 9.8 mg/mg Normal [facility] Comment on above: Performed By: #### C MP ####[facility] [address] [place], [place] [address]Dr. Arjun Menjivar PROTIMEon 2023 INR Coag (PPP) [Relative time] 2.90 {INR} Normal [facility] Comment on above: Performed By: #### P TT, PT ####[facility] [address] [place], [place] [address]Dr. Arjun Menjivar INR GUIDELINES SEE BELOW Normal [facility] Comment on above: Result Comment: PIOTR RED INR: 2.0 - 3.0 CONDITIONS NOT LISTED BELOW 2.5 - 3.5 FOR PROSTHETIC HEART VALVE REPLACEMENT 2.5 - 3.5 RECURRENT THROMBOSIS Performed By: #### P TT, PT ####[facility] [address] [place], [place] [address]Dr. Arjun Menjivar PT Coag (PPP) [Time] 28.9 s Critically high 9.0-11.6 [facility] Comment on above: Performed By: #### P TT, PT ####[facility] [address] [place], [place] [address]Dr. Arjun Menjivar PTTon 2023 aPTT Coag (Bld) [Time] 37.7 s Critically high 22.3-36.2 [facility] Comment on above: Performed By: #### P TT, PT ####[facility] [address] [place], [place] [address]ElMago Menjivar XR PELVIS 1_2 VIEWSon 2022 XR [...] by: LINDA WANG Date: 2023 16:[address] [facility] XR ERCP 1 HOUR FLUOROon 10-27 XR ERCP 1 HOUR FLUORO Fluoroscopic guidance for ERCP 11/09/2022 6:30 AM MILIEU COORDINATOR History: DR ORDER;OTHER REASON Tech notes: WHAT [...] by: Radha Haji MD 11/10/2022 8:01 AM MILIEU COORDINATOR Technologist: AG Dictated By: RADHA HAJI MD Signed By: RADHA HAJI MD Signed Out: 11/10/22 09:01:42 Normal [facility] Anesthesiaon 11-09-2022 Anesthesia Patient: YE GONCALVES Age: [...] Postoperative hydration status: euvolemic. Notes: Normothermia. Normal [facility] Anesthesia Patient: YE GONCALVES Age: 77 years [...] release 325 mg = 1 caps, ORAL, [id number] trazodone = Desyrel 50 mg, ORAL, BID [...] available Procedure history: Endoscopic Retrograde Cholangiopancreatography (ERCP). (37934) on 11/09/2022 at 77 Years. Endoscopic Retrograde Cholangiopancreatography (ERCP). (81839) on 08/14/2021 at 76 Years. Esophagogastroduodenoscopy , flexible, transoral; with endoscopic ultrasound examination limited to the esophagus, stomach or duodenum, and adjacent structures (68170) on 07/10/2021 at 76 Years. Social History [...] palate, fauces, uvula visible). Assessment and Plan [place] [employer] Anesthesiologists (ASA) physical status classification: [...] recognition software. Verbal misinterpretations may occur. Normal [facility] ENDO Initial Data VS HW Prep -Texton [...] Bettencourt RN - 11/09/2022 7:09 EST Normal [facility] ENDO Outpatient Admission Da ta-Texton 11-09-2022 ENDO [...] Home : daughter Amna Surgeon Speak with Distributor Of Directories : Yes Voided : No Pain Level and Site : 0 Kaylyn Bettencourt RN - 11/09/2022 7:09 EST Present on Admission Medical Devices : None Medical Devices for Med Administration : None Sg GAVIN [facility] 11/09/2022 7:09 EST [place] Coma Eye Opening Response [place] : Spontaneously Best Verbal Response Vikas : Oriented Best Motor Response [place] : Obeys simple commands [place] Coma Score : 15 Sg GAVIN [facility] 11/09/2022 7:09 EST Advance Directive *Advance Directive : Yes Sg GAVIN [facility] 11/09/2022 7:09 EST Outpatient Fall Risk GEN_Fall Risk Indicators_49304 : Age 65 or greater, Medications altering equilibrium or cognitive judgement Fall Risk Band On : Yes Sg GAVIN [facility] 11/09/2022 7:09 EST Screening-Safety Domestic Concerns : None Feeling Down, Depressed, Hopeless : Not at all Little Interest - Pleasure in Activities : Not at all Initial Depression Screen Score : 0 Depression Screening Score 0 : No Sg GAVIN [facility] 11/09/2022 7:09 EST Education Barriers to Learning : None evident TeachBack Methodology : TeachBack, Demonstration, Explanation, Printed Material Sg GAVIN [facility] 11/09/2022 7:09 EST ENDO Education Activity Expectations : Verbalizes understanding Anesthesia/Sedation : Verbalizes understanding Endo Post Procedure Care : Verbalizes understanding Follow-Up Care/Appointment : Verbalizes understanding Safety : Verbalizes understanding Sg GAVIN [facility] 11/09/2022 7:09 EST Normal [facility] Inpatient Patient Summaryon 11-09-2022 Inpatient Patient Summary [facility] Discharge Instructions [address] [place] [address] \.br\(Patient Copy)\.br\ \.br\ \.br\Name: TITO GONCALVES : 1945 \.br\Diagnosis: \.br\ \.br\Allergies: sulfa drugs; penicillins; iodine topical\.br\ \.br\Registration Date: 11/09/22\.br\.br\.br\ \.br\ Current Date Time: 11/09/2022 08:44:54 \.br\ \.br\Address: [facility] MANAGER BENCH [facility] [address] \.br\Phone: [phone] \.br\ \.br\Primary Care Provider: \.br\Name: AUGUSTINE METZ\.br\Phone: [phone] \.br\ \.br\Thank you for choosing [facility] for your care. You are very important to us. Our goal is to demonstrate our high quality medical care and provide you with a very good patient experience.\.br\ You may receive a survey about our service. Please take the time to complete the survey and return it so we can continue to enhance our service.\.br\ Thank you again for allowing [facility] to care for your medical needs. If you have any questions about your care or follow up information please contact your doctor.\.br\.br\Follow-up Instructions\.br\.br\.br \With: Address: When: \.br\PUJA HOLBROOK, Gastroenterology [address] [facility], [facility] [address] [place] [address]\.br\ Business (1) Within Call for Appointment \.br\.br\.br\.br\.br\P [...] display below\.br\[facility] ENDOSCOPY DEPARTMENT\.br\.br\FOLLOW UP CARE\.br\? For biopsy results, [...] tarry sto (more content not included)... Normal [facility] OR Nursing Record - Endoon 0 11-09-2022 OR Nursing Record - Endo OR Nursing Record - Endo Summary Primary Physician: PUJA HOLBROOK MD Finalized Date/Time: 11/09/22 08:27:34 Pt. Name: IVANNATITO/Sex: 1945 Male Med Rec #: [id number] Physician: Financial #: [id number] Pt. Type: A Room/Bed: / Admit/Disch: 11/09/22 06:11:45 - Institution: Case Times - Endo Entry 1 Patient In Room Time 11/09/22 07:43:00 Out Room Time 11/09/22 08:24:00 Anesthesia Facility Times Induction Time 11/09/22 07:48:00 Stop Time 11/09/22 08:15:00 [place] Protocol Yes Completed Surgery Start Time 11/09/22 [...] Minnie Saavedra RN Role Performed Surgeon Primary Educational Resource Coordinator Primary Scrub Primary Time In 11/09/22 07:43:00 11/09/22 07:43:00 11/09/22 07:43:00 Time Out 11/09/22 08:24:00 11/09/22 08:24:00 11/09/22 08:24:00 Procedure ERCP(None) ERCP(None) ERCP(None) Last Modified By: Martha Haider RN, RN, Martha Barrera RN 11/09/22 08:21:41 11/09/22 08:21:41 11/09/22 08:21:41 Entry 4 Entry 5 Entry 6 Case Attendee Dena GAVIN, LESLI Shah DO, JILLIAN Role Performed Educational Resource Coordinator Secondary Anesthesiologist Primary Anesthesia Asst/MOTOR ROUTE CARRIER Time In 11/09/22 07:43:00 11/09/22 07:43:00 11/09/22 [...] 08:23 Martha Haider RN 11/09/22 08:27 Normal [facility] Operative Reporton Operative Report Patient: YE GONCALVES [...] Notes: Follow-up in clinic as scheduled. Normal [facility] Comment on above: Order Comment: [place] Attachment [id number] can be viewed in source system Missing Attachment [id number] can be viewed in source system Missing Attachment [id number] can be viewed in source system Missing Attachment [id number] can be viewed in source system Missing Attachment [id number] can be viewed in source system Missing Attachment [id number] can be viewed in source system Result Comment: PACU Phase I - Endoon 2022 PACU Phase I - Endo PACU Phase I - Endo Summary Primary Physician: PUJA HOLBROOK MD Finalized Date/Time: 11/09/22 08:55:35 Pt. Name: TITO GONCALVES/Sex: 1945 Male Med Rec #: [id number] Physician: Financial #: [id number] Pt. Type: A Room/Bed: / Admit/Disch: 11/09/22 06:11:45 - Institution: PACU I Case Times - Endo Entry 1 In PACU I 11/09/22 08:25:00 Ready for Transfer 11/09/22 09:19:00 Last Modified By: Sariah Schreiber RN 11/09/22 08:55:34 Finalized By: Sariah Schreiber RN Document Signatures Signed By: Sariah Schreiber RN 11/09/22 08:55 Normal [facility] POC Glucoseon 11-09-2022 Glucose [Mass/Vol] 131 mg/dL High 72-100 [facility] Comment on above: Performed By: #### 1 [id number] ####[facility] [address] [place] [address] Medical Director: Diogo Carcamo MD Preop - Endoon 11-09-2022 Preop - Endo Preop - Endo Summary Primary Physician: PUJA HOLBROOK MD Finalized Date/Time: 11/09/22 07:13:53 Pt. Name: TITO GONCALVES/Sex: 1945 Male Med Rec #: [id number] Physician: Financial #: [id number] Pt. Type: A Room/Bed: / Admit/Disch: 11/09/22 06:11:45 - Institution: Preop - Case Times - Endo Entry 1 Patient Arrival Time 11/09/22 06:31:00 Patient Ready for 11/09/22 07:11:00 Surgery Report Given to n/a Last Modified By: Kaylyn Bettencourt RN 11/09/22 07:13:51 Finalized By: Kaylyn Bettencourt RN Document Signatures Signed By: Kaylyn Bettencourt RN 11/09/22 07:13 Normal [facility] Provider Letter - Ambulatory on 11-09-2022 Provider Letter - Ambulatory AUGUSTINE METZ, [address] [place] [address] RE: TITO GONCALVES 11/09/2022 Dear AUGUSTINE METZ [...] EST - (11/09/2022) GI ERCP with Anesthesia [facility] [place] Protocol/Pre-Proc TimeOut-Texton 11-09-2022 [place] Protocol/Pre-Proc TimeOut-Text [place] Protocol Entered On: 11/09/2022 7:13 EST Performed [...] Team Members are in Agreement Laterality : NKymberlyA Martha Haider RN - 11/09/2022 7:48 EST Normal [facility] Phone Devan 11-08-2022 Phone Msg - From: Lori Cintron [...] 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 Normal [facility] MRI ABDOMEN WO CONon 023 MRI ABDOMEN [...] by: SANTOS DC Date: 2022-11-01 09:[address] [facility] Phone Msgon 10-28-2022 Phone Msg - [...] Number: H Did he say who his Data Programmer was? From: Caren Carvalho RN To: Blanca Bazzi; Fela Alexandre; Sent: 10/28/2022 09:50:53 EST Subject: RE: Cardiac Clearance Caller Name: TITO GONCALVES; Caller Number: H He sees Dr. Metz sent LM for pt-Per Dr. Metz, pt can be off his Coumadin 5 days prior to his procedure. Normal [facility] AMB GI Physician Progress No irma 10-26-2022 AMB GI Physician Progress Note Chief Complaint Abdominal pain History of Present Illness 77-year-old male with recurrent history of choledocholithiasis last ERCP was done a year ago in [place] Patient had admission in hospital in [place] with fever and chills Patient has had [...] mmHg (10/26/22 14:56:00) Height/Length Measured: 183 cm (10/26/22:56:) Weight Measured: 63 kg (10/26/22:56:00) Body Mass Index Measured: 18.81 kg/m2 (10/26/22 14:56:00) Weight Measured - lbs2: 139 lb (10/26/22:56:) Height/Length Measured - in2: 72 in (10/26/22:56:00) Body Mass Index Measured English2: 18.85 kg/m2 (10/26/22:56:00) BSA: 1.79 m2 (10/26/22:56:) Ht/Wt Measurement Refused [...] Est Pt Mod MDM / 30-39 min 88162, 10/26/2022 16:13:00 EST, Abdominal pain / Pancreatic cyst MR CP, 10/26/2022, Routine, PAIN, Abdominal pain / Pancreatic cyst 2. Pancreatic cyst K86.2 Pancreatic cyst stable very low CEA levels suggestive of simple serous cyst versus inflammatory cyst. Asymptomatic Ordered: AMB Follow - Up Appt Amb, 10/26/2022 16:13:00 EST, 4 weeks AMB Office/Outpt Est Pt Mod MDM / 30-39 min 99831, 10/26/2022 16:13:00 EST, Abdominal pain / Pancreatic [...] extended release, 325 mg= 1 caps, ORAL, [id number] trazodone = Desyrel, 50 mg, ORAL, BID [...] Care Team Primary Care Physician AUGUSTINE METZ [phone] Attending Physician PUJA HOLBROOK MD [phone] . Health Maintenance Pending (in the next year) There are no current recommendations pending Satisfied (in the past 1 year) There are no satisfied recommendations within the defined date range Normal [facility] Comprehensive Intake - Texto n 10-26-2022 Comprehensive [...] in, 183 cm) Body Mass Index Measured Georgian : 18.85 kg/m2 BSA Georgian : 1.79 m2 Ht/Wt Measurement Refused by [...] risk situation (congregated living, hemodialysis, infusion clinic, care home, assisted living, half-way, homeless penitentiary, etc.)? : No Lori Cintron MA - [...] Abnormal LFTs (liver function tests) (SNOMED CT :361885048 ) Name of Problem: Abnormal LFTs (liver function tests) ; Recorder: Blanca Bazzi; Confirmation: Confirmed ; Classification: Medical ; Code: 098177514 ; Contributor System: [employer], [employer] ; Last Updated: 07/01/2021 12:43 EDT ; Life Cycle Date: 07/01/2021 ; Life Cycle Status: Active ; Vocabulary: SNOMED CT Arthritis (SNOMED CT :0383717 ) Name of Problem: Arthritis ; Recorder: Blanca Bazzi; Confirmation: Confirmed ; Classification: Medical ; Code: 3618437 ; Contributor System: PowerChart ; Last Updated: 07/01/2021 12:43 EDT ; Life Cycle Date: 07/01/2021 ; Life Cycle Status: Active ; Vocabulary: SNOMED CT Choledocholithiasis (SNOMED CT :726601749 ) Name of Problem: Choledocholithiasis ; Recorder: PUJA HOLBROOK MD; Confirmation: Confirmed ; Classification: Medical ; Code: 373531759 ; Contributor System: [employer], [employer] ; Last Updated: 07/01/2021 13:27 EDT ; Life Cycle Date: 07/01/2021 ; Life Cycle Status: Active ; Responsible Provider: PUJA HOLBROOK MD; Vocabulary: SNOMED CT Diabetes (SNOMED CT :406884084 ) Name of Problem: Diabetes ; Recorder: Blanca Bazzi; Confirmation: Confirmed ; Classification: Medical ; Code: 955185866 ; Contributor System: PowerChart ; Last Updated: 07/01/2021 12:43 EDT ; Life Cycle Date: 07/01/2021 ; Life Cycle Status: Active ; Vocabulary: SNOMED CT Gallbladder disease (SNOMED CT :614731260 ) Name of Problem: Gallbladder disease ; Recorder: Blanca Bazzi; Confirmation: Confirmed ; Classification: Medical ; Code: 561136234 ; Contributor System: PowerChart ; Last Updated: 07/01/2021 12:44 EDT ; Life Cycle Date: 07/01/2021 ; Life Cycle Status: Active ; Vocabulary: SNOMED CT GERD (gastroesophageal reflux disease) (SNOMED CT :888785898 ) Name of Problem: GERD (gastroesophageal reflux disease) ; Recorder: Blanca Bazzi; Confirmation: Confirmed ; Classification: Medical ; Code: 843822575 ; Contributor System: PowerChart ; Last Updated: 07/01/2021 12:44 EDT ; Life Cycle Date: 07/01/2021 ; Life Cycle Status: Active ; Vocabulary: SNOMED CT Hypertension (SNOMED CT :8692974467 ) Name of Problem: Hypertension ; Recorder: Blanca Bazzi; Confirmation: Confirmed ; Classification: Medical ; Code: 9812501645 ; Contributor System: [employer], [employer]Chart ; Last Updated: 07/01/2021 12:44 EDT ; Life Cycle Date: 07/01/2021 ; Life Cycle Status: Active ; Vocabulary: SNOMED CT Irregular heart rhythm (SNOMED CT :698696718 ) Name of Problem: Irregular heart rhythm ; Recorder: Blanca Bazzi; Confirmation: Confirmed ; Classification: Medical (more content not included)... Normal [facility] Provider Letter - Ambulatory on 10-26-2022 Provider Letter - Ambulatory AUGUSTINE METZ, [facility] [place] [address] RE: TITO GONCALVES 10/26/2022 Dear AUGUSTINE METZ [...] - (10/26/2022) *.AMB Office Visit Note Normal [facility] Phone Msgon 10-22-2022 Phone Msg - From: [...] other dilemma is he is leaving for [place] on 11/13 for 6 weeks. From: Caren [...] him until December. He has moved to [facility] and Tito would be considered a new patient. His daughter did not feel he was acutely ill and that he can wait for the appointment next Tuesday. Normal [facility] GLYCOHEMOGLOBIN A1Con 2022 ADA RECOMMENDATION SEE BELOW Normal [facility] Comment on above: Result Comment: ADA RECOMMENDED LIMIT 4.0 - 6.0 ADA THERAPEUTIC TARGET < 7.0 ACTION SUGGESTED > 7.0 Performed By: #### A 1C ####[facility] [address] [place], [place] [address]Ks. Arjun Menjivar Glucose [Mass/Vol] 163 mg/dL Normal [facility] Comment on above: Performed By: #### A 1C ####[facility] [address] [place], [place] [address]Xs. Arjun Menjivar HbA1c (Bld) [Mass fraction] 7.3 % Critically high 4.5-6.2 [facility] Comment on above: Performed By: #### A 1C ####[facility] [address] [place], [place] [address]Eu. Arjun Menjivar Dermatopathologyon Dermatopathology Name: TITO GONCALVES Pathologist: KRISTEN OCONNOR MD Date of Procedure: 09/07/2022 Date Received: 09/07/2022 Date Reported 09/08/2022 Submitting Physician: MACARIO BUI MD, Location: [facility] Copy To/Referring/Attending: MD SABRA SIMS FINAL DIAGNOSIS 3 SLIDES, [facility] #[id number] (BX: 08/03/2022) A. SKIN, LEFT PREAURICULAR, SHAVE [...] M.D. CANCER SUMMARY REPORT A. 3 SLIDES, [facility] #[id number] (BX: 08/03/2022): SPECIMEN Procedure: Biopsy, shave Specimen Laterality: Right TUMOR Tumor Site: Skin of other and unspecified parts of face: Right druze Histologic Type: Melanoma in situ, lentigo maligna [...] ADDITIONAL FINDINGS Additional Findings: None ADDITIONAL TESTING Sum[employer] Server Blocks: Normal Block: None Tumor Block: A1 Electronically Signed Out By KRISTEN OCONNOR MD/LEANDRO Diagnostic interpretation performed at [facility] [address] [place] [id number], [facility] [address] Microscopic Description: A. Microscopic examination reveals nests [...] OTHER Specimens Submitted As: A: 3 SLIDES, [facility] #[id number] (BX: 08/03/2022) Gross Description: Received for consultation from [facility] are three slides labeled [id number] (BX: 08/03/2022) along with the corresponding pathology report. Slide/Block Description 3 SLIDES, [id number]. Keep Slides: N Slides Returned: N Personal Consult: N Normal [facility] Comment on above: Performed By: #### D #### Dermatopathology GLYCOHEMOGLOBIN A1Con 2021 ADA RECOMMENDATION SEE BELOW Normal [facility] Comment on above: Result Comment: ADA RECOMMENDED LIMIT 4.0 - 6.0 ADA THERAPEUTIC TARGET < 7.0 ACTION SUGGESTED > 7.0 Performed By: #### A 1C ####[facility] [address] [place], [place] [address]Dr. Arjun Menjivar Glucose [Mass/Vol] 151 mg/dL Normal [facility] Comment on above: Performed By: #### A 1C ####[facility] [address] [place], [place] [address]CqMago Menjivar HbA1c (Bld) [Mass fraction] 6.9 % Critically high 4.5-6.2 [facility] Comment on above: Performed By: #### A 1C ####[facility] [address] [place], [place] [address]Ov. Arjun Menjivar XR ESOPHAGUSon 06-28-2022 XR ESOPHAGUS [...] by: CARMEN PABLO Date: 2022-06-28 14:[address] [facility] XR MODIFIED BARIUM SWALLOWon 06-15-2022 XR [...] by: SANTOS DC Date: 2022-06-15 11:11 Normal [facility] Ambulatory Visit Summaryon 0 05-03-2022 Ambulatory [...] Schedule the Following Appointments Follow Up with Mc ALMONTE MD, URL When: Comments: PRN Where: [facility] [address], [place] [address] [phone] Medications What How Much When Instructions Unchanged [...] the si (more content not included)... Normal [facility] Patient Educationon 05-03-20 Patient Education Urology [...] Follow these instructions at home: ? Take agwo-vmh-ovurccx and prescription medicines only as told by [...] d (more content not included)... Normal [facility] Urology Office/Clinic Noteon 05-03-2022 Urology Office/Clinic Note Chief Complaint 1 year with KUB HPI Staff Tito is here today for a 1 year follow up with a KUB. KUB done on 04/26/22 at [facility] impression showed no appreciable urinary tract [...] [facility] [address], [place] [address] [phone] Additional Instructions: PRN Patient Education Benign Prostatic [...] 100 in lifetim (more content not included)... [facility] Comment on above: Result Comment: Elec tronically Signed By: Mc ALMONTE MD\.br\Date and Time Signed: 05/03/22 09:26 EDT\.br\Electronically Co-Signed By: Jerri Lyles.deyanira\Date and Time Co-Signed: 05/03/22 09:24 EDT RAD - MISCon 04-28-2022 RAD - MISC [id number] [facility] XR KUB 1 VIEWon 04-27-2022 XR KUB [...] SANTOS DC Date: 2022-04-27 06:18 Normal [facility] GLYCOHEMOGLOBIN A1Con 2021 ADA RECOMMENDATION SEE BELOW Normal [facility] Comment on above: Result Comment: ADA RECOMMENDED LIMIT 4.0 - 6.0 ADA THERAPEUTIC TARGET < 7.0 ACTION SUGGESTED > 7.0 Performed By: #### A 1C #### [facility] [address] [place] [address] Dr. Arjun Menjivar Glucose [Mass/Vol] 126 mg/dL Normal [facility] Comment on above: Performed By: #### A 1C #### [facility] [address] [place] [address] Dr. Arjun Menjivar HbA1c (Bld) [Mass fraction] 6.0 % Normal 4.5-6.2 [facility] Comment on above: Performed By: #### A 1C #### [facility] [address] [place] [address] [address] Arjun Menjivar IRON AND TIBCon 04-07-2022 % SATURATION 25.4 % Normal [facility] Comment on above: Performed By: #### F ETIBC, B12FOL #### [facility] [address] [address] [address] Arjun Menjivar Iron [Mass/Vol] 62.0 ug/dL Critically low 65.0-175.0 [facility] Comment on above: Performed By: #### F ETIBC, B12FOL #### [facility] [address] [address] [address] Arjun Menjivar TIBC DIRECT 244.0 ug/dL Critically low 250.0-450.0 [facility] Comment on above: Performed By: #### F ETIBC, B12FOL #### [facility] [address] [place] [address] Dr. Arjun Menjivar VIT B12 AND FOLATEon 022 Cobalamin (Vitamin B12) [Mass/Vol] 597.0 pg/mL Normal 193.0-986.0 [facility] Comment on above: Performed By: #### F ETIBC, B12FOL #### [facility] [address] [address] [address] Arjun Menjivar FOLATE 21.50 ng/mL Normal 8.60-58.90 [facility] Comment on above: Performed By: #### F ETIBC, B12FOL #### [facility] [address] [address] [address] Arjun Menjivar CBCon 03-16-2022 ABSOLUTE BAS 0.0 10*3/uL Normal 0.0-0.2 [facility] Comment on above: Result Comment: Test ing performed at [place] [address] Performed By: #### R ENF ACBC, PT #### [place] [address] ABSOLUTE EOS 0.00 10*3/uL Normal 0.0-0.7 [facility] Comment on above: Performed By: #### R ENF ACBC, PT #### [place] [address] ABSOLUTE NEUTROPHIL COUNT 8.5 10*3/uL High 1.4-6.5 [facility] Comment on above: Performed By: #### R ENF, ACBC, PT #### [place] [address] Basophils/100 WBC (Bld) 0.1 % Normal 0.0-2.0 [facility] Comment on above: Performed By: #### R ENF, ACBC, PT #### [place] [address] DTYPE AUTO DIFF Normal [facility] Comment on above: Performed By: #### R ENF, ACBC, PT #### [place] [address] Eosinophils/100 WBC (Bld) 0.0 % Normal 0.0-11.0 [facility] Comment on above: Performed By: #### R HUGH MAGDALENO, PT #### Testing performed at [address] [address] Lymphocytes (Bld) [#/Vol] 0.60 10*3/uL Low 1.2-3.4 [facility] Comment on above: Performed By: #### HUGH FARIA, PT #### Testing performed at [address] [address] Lymphocytes/100 WBC (Bld) 6.4 % Low 20.0-55.0 [facility] Comment on above: Performed By: #### HUGH FARIA, PT #### Testing performed at [address] [address] Monocytes (Bld) [#/Vol] 0.4 10*3/uL Normal 0.0-0.7 [facility] Comment on above: Performed By: #### HUGH FARIA, PT #### Testing performed at [address] [address] Monocytes/100 WBC (Bld) 4.1 % Normal 0.0-10.0 [facility] Comment on above: Performed By: #### HUGH FARIA, PT #### Testing performed at [address] [address] Neutrophils/100 WBC (Bld) 89.4 % High 37.0-75.0 [facility] Comment on above: Performed By: #### HUGH FARIA, PT #### Testing performed at [address] [address] Erythrocyte distribution width (RBC) [Ratio] 17.0 % High 11.5-14.5 [facility] Comment on above: Performed By: #### HUGH FARIA, PT #### Testing performed at [address] [address] Hematocrit (Bld) [Volume fraction] 33.9 % Low 42.0-52.0 [facility] Comment on above: Performed By: #### R LUMA MAGDALENOBC, PT #### [place] [address] Hemoglobin (Bld) [Mass/Vol] 11.7 g/dL Low 14.0-18.0 [facility] Comment on above: Performed By: #### R LUMA MAGDALENOBC, PT #### [place] [address] MCH (RBC) [Entitic mass] 30.0 pg Normal 26.0-35.0 [facility] Comment on above: Performed By: #### R LUMA MAGDALENOBC, PT #### [place] [address] MCHC (RBC) [Mass/Vol] 34.5 g/dL Normal 27.0-37.0 [facility] Comment on above: Performed By: #### R LUMA MAGDALENOBC, PT #### [place] [address] MCV (RBC) [Entitic vol] 87.2 fL Normal 80.0-100.0 [facility] Comment on above: Performed By: #### R HUGH MAGDALENO, PT #### [place] [address] Platelet mean volume (Bld) [Entitic vol] 9.2 fL Normal 7.4-11.0 [facility] Comment on above: Performed By: #### R ENEleni ACBC, PT #### Testing performed at [place] [id number] Platelets (Bld) [#/Vol] 154 10*3/uL Normal 130.0-400.0 [facility] Comment on above: Performed By: #### R ENEleni ACBC, PT #### [place] [address] RBC (Bld) [#/Vol] 3.89 10*6/uL Low 4.0-6.1 [facility] Comment on above: Performed By: #### R ENFHUGH, PT #### Testing performed at [facility] [address] [place] [address] WBC (Bld) [#/Vol] 9.5 10*3/uL Normal 3.6-11.0 [facility] Comment on above: Performed By: #### R NICKF ACBC, PT #### Testing performed at [facility] [address] [place] [address] CBC, EDIF, PLATELETon 2021 ABSOLUTE BASOPHIL COUNT 0.0 10*3/uL 0.0 - 0.2 10*3/uL [facility] Comment on above: Testing performed at [place], [place] [address] Basophils/100 WBC (Bld) 0.1 % 0.0 - 2.0 % [facility] Differential cell count method Nom (Bld) AUTO DIFF % [facility] Eosinophils (Bld) [#/Vol] 0.00 10*3/uL 0.0 - 0.7 10*3/uL [facility] Eosinophils/100 WBC (Bld) 0.0 % 0.0 - 11.0 % [facility] Erythrocyte distribution width (RBC) [Ratio] 17.0 % High 11.5 - 14.5 % [facility] Hematocrit (Bld) [Volume fraction] 33.9 % Low 42.0 - 52.0 % [facility] Hemoglobin (Bld) [Mass/Vol] 11.7 g/dL Low [facility] Interpretation and review of laboratory results Abnormal [facility] Lymphocytes (Bld) [#/Vol] 0.60 10*3/uL Low 1.2 - 3.4 10*3/uL [facility] Lymphocytes/100 WBC (Bld) 6.4 % Low 20.0 - 55.0 % [facility] MCH (RBC) [Entitic mass] 30.0 pg 26.0 - 35.0 PG [facility] MCHC (RBC) [Mass/Vol] 34.5 g/dL [facility] MCV (RBC) [Entitic vol] 87.2 fL [facility] Monocytes (Bld) [#/Vol] 0.4 10*3/uL 0.0 - 0.7 10*3/uL [facility] Monocytes/100 WBC (Bld) 4.1 % 0.0 - 10.0 % [facility] Neutrophils (Bld) [#/Vol] 8.5 10*3/uL High 1.4 - 6.5 10*3/uL [facility] Neutrophils/100 WBC (Bld) 89.4 % High 37.0 - 75.0 % [facility] Platelet mean volume (Bld) [Entitic vol] 9.2 fL [facility] Platelets (Bld) [#/Vol] 154 10*3/uL 130.0 - 400.0 10*3/uL [facility] RBC (Bld) [#/Vol] 3.89 10*6/uL Low 4.0 - 6.1 10*6/uL [facility] WBC (Bld) [#/Vol] 9.5 10*3/uL 3.6 - 11.0 10*3/uL [facility] PROTIMEon 03-16-2022 INR Coag (PPP) [Relative time] 1.37 {INR} High 0.85-1.10 [facility] Comment on above: Result Comment: 2.0-3.0 THERAPEUTIC RANGE 2.5-3.5 MECHANICAL VALVE RANGE Testing performed at [place] [address] Performed By: #### R ENF, LUMABC, PT #### [place] [address] PT Coag (PPP) [Time] 16.9 s High 11.8-14.4 [facility] Comment on above: Performed By: #### R ENF, ACBC, PT #### [place] [address] PROTIME-INRon 03-16-2022 INR Coag (PPP) [Relative time] 1.37 {INR} High [facility] Comment on above: 2.0-3.0 THERAPEUTIC RANGE 2.5-3.5 MECHANICAL VALVE RANGE Testing performed at [place] [address] Interpretation and review of laboratory results Abnormal [facility] PT Coag (PPP) [Time] 16.9 s High [facility] RENAL FUNCTION PANELon 03-16 Albumin [Mass/Vol] 3.3 G/dl Low 3.5 - 5.0 G/dl [facility] Calcium [Mass/Vol] 7.9 mg/dL Low [facility] Chloride [Moles/Vol] 106 mmol/L [facility] Comment on above: Please note: Triglyc eride levels of 600mg/dL or higher may positively bias chloride results by approximately 2.1 mmol CO2 [Moles/Vol] 23 mmol/L [facility] Creatinine [Mass/Vol] 1.20 mg/dL [facility] GFR COMMENT Average GFR for 70+ years old = 75. [facility] Comment on above: Chronic Kidney disea se, GFR = <60. Kidney failure, GFR = <15. The GFR estimate is not adjusted for extreme body surface area or acute process, nor has it been validated for women or ethnic groups other than and . Testing performed at [place], [place] [address] GFR/1.73 sq M.predicted among blacks MDRD (S/P/Bld) [Vol rate/Area] 76 mL/min/{1.73_m2} ml/min/1.73 sq.m [facility] GFR/1.73 sq M.predicted among non-blacks MDRD (S/P/Bld) [Vol rate/Area] 63 mL/min/{1.73_m2} ml/min/1.73 sq.m [facility] Glucose post fast [Mass/Vol] 230 mg/dL [facility] Comment on above: NORMAL <100 mg/dL PREDIABETES 101-126 mg/dL DIABETES 126 mg/dL or higher Interpretation and review of laboratory results Abnormal [facility] Phosphate [Mass/Vol] 2.9 mg/dL [facility] Potassium [Moles/Vol] 4.5 mmol/L [facility] Sodium [Moles/Vol] 136 mmol/L Low [facility] Urea nitrogen [Mass/Vol] 22 mg/dL High [facility] RENAL PANEL,FASTINGon 2021 ALBUMIN 3.3 G/dl Low 3.5-5.0 [facility] Comment on above: Performed By: #### R ENF, ACBC, PT #### [place] [address] Calcium [Mass/Vol] 7.9 mg/dL Low 8.4-10.2 [facility] Comment on above: Performed By: #### HUGH FARIA, PT #### [place] [address] Chloride [Moles/Vol] 106 mmol/L Normal 98-107 [facility] Comment on above: Result Comment: Alla noland note: Triglyceride levels of 600mg/dL or higher may positively bias chloride results by approximately 2.1 mmol Performed By: #### HUGH FARIA, PT #### [place] [address] CO2 [Moles/Vol] 23 mmol/L Normal 22-30 [facility] Comment on above: Performed By: #### HUGH FARIA, PT #### [place] [address] Creatinine [Mass/Vol] 1.20 mg/dL Normal 0.7-1.2 [facility] Comment on above: Performed By: #### HUGH FARIA, PT #### [place] [address] EST. GFR, 76 ml/min/1.73sq.m [facility] Comment on above: Performed By: #### HUGH FARIA, PT #### [place] [address] EST. GFR,Non 63 ml/min/1.73sq.m [facility] Comment on above: Performed By: #### HUGH FARIA, PT #### [place] [address] GFR Information Average GFR for 70+ years old = 75. Normal [facility] Comment on above: Result Comment: Ophthalmic Aide david Kidney disease, GFR = <60. Kidney failure, GFR = <15. The GFR estimate is not adjusted for extreme body surface area or acute process, nor has it been validated for women or ethnic groups other than and . Testing performed at [place] [address] Performed By: #### HUGH FARIA, PT #### Testing performed at [place] [id number] Glucose [Mass/Vol] 230 mg/dL High 70-100 [facility] Comment on above: Result Comment: NORMAL <100 mg/dL PREDIABETES 101-126 mg/dL DIABETES 126 mg/dL or higher Performed By: #### HUGH FARIA, PT #### [place] [address] PHOSPHOROUS 2.9 MG/DL Normal 2.5-4.5 [facility] Comment on above: Performed By: #### HUGH FARIA, PT #### Testing performed at [place] [id number] Potassium [Moles/Vol] 4.5 mmol/L Normal 3.5-5.1 [facility] Comment on above: Performed By: #### HUGH FARIA, PT #### Testing performed at [place] [id number] Sodium [Moles/Vol] 136 mmol/L Low 137-145 [facility] Comment on above: Performed By: #### HUGH FARIA, PT #### Testing performed at [place] [id number] Urea nitrogen [Mass/Vol] 22 mg/dL High 7-20 [facility] Comment on above: Performed By: #### HUGH FARIA, PT #### Testing performed at [address] [address] GLUCOSE (POC DEVICE)on 03-15 GLUCOSE, POINT OF CARE 118 High [facility] Interpretation and review of laboratory results Abnormal [facility] [employer] [id number] [facility] Comment on above: Testing performed at [place] [id number] [facility] MRSA SCREENon 03-15-2022 MRSA DNA HERIBERTO+probe Ql (Unsp spec) Not detected Normal NOT DETECTED [facility] Comment on above: Performed By: #### M RSAST #### [place] [address] STAPH AUREUS SCREEN Not detected Normal NOT DETECTED [facility] Comment on above: Result Comment: Test ing performed at [place] [address] Performed By: #### M RSAST #### [place] [address] NOVEL CORONAVIRUSon 03-15-20 22 NARRATIVE This test was perfor med using isothermal HERIBERTO and has been approved as Emergency Use Authorization (EUA) for the qualitative detection [id number] nucleic acid. Normal [facility] Comment on above: Result Comment: Test ing performed at [place] [address] Performed By: #### C OVID #### [place] [address] SARS-CoV-2 (COVID-19) RNA HERIEBRTO+probe Ql (Unsp spec) Not detected Normal NOT DETECTED [facility] Comment on above: Result Comment: [...] #### C OVID #### [place] [address] NOVEL CORONAVIRUS LAB 1 - NA SOPHARYNGEALon 03-15-2022 NARRATIVE -1 This test was perfor med using isothermal HERIBERTO and has been approved as Emergency Use Authorization (EUA) for the qualitative detection [id number] nucleic acid. [facility] Comment on above: Testing performed at [place] [address] SARS-CoV-2 (COVID-19) RNA HERIBERTO+probe Ql (Unsp spec) Not detected NOT DETECTED [facility] Comment on above: Negative results do not [...] patient is critically ill or clinically deteriorating. [facility] POCT GLUCOSEon 03-15-2022 Glucose [Mass/Vol] 118 mg/dL High 70-100 [facility] Comment on above: Performed By: #### P OCGLU #### [place] [address] INSURANCE COMPLIANCE ANALYST Normal [facility] Comment on above: Result Comment: Test ing performed at [place] [address] Performed By: #### P OCGLU #### [place] [address] PROTIMEon 03-15-2022 INR Coag (PPP) [Relative time] 1.36 {INR} High 0.85-1.10 [facility] Comment on above: Result Comment: 2.0-3.0 THERAPEUTIC RANGE 2.5-3.5 MECHANICAL VALVE RANGE Testing performed at [place] [address] Performed By: #### P T #### [place] [address] PT Coag (PPP) [Time] 16.8 s High 11.8-14.4 [facility] Comment on above: Performed By: #### P T #### [place] [address] PROTIME-INRon 03-15-2022 INR Coag (PPP) [Relative time] 1.36 {INR} High [facility] Comment on above: 2.0-3.0 THERAPEUTIC RANGE 2.5-3.5 MECHANICAL VALVE RANGE Testing performed at [place] [address] Interpretation and review of laboratory results [facility] Coag (PPP) [Time] 16.[address] [facility] [place] PTTon 03-15-2022 aPTT Coag (Bld) [Time] 28.7 s Normal 22.4-34.7 [facility] Comment on above: Result Comment: CARDIAC AND PE/DVT THERAPUTIC RANGE 69-97 SEC VASCULAR/THREATENED LIMB THERAPUTIC RANGE 80-112 SEC Testing performed at [place] [address] Performed By: #### P TT #### [place] [address] aPTT Coag (Bld) [Time] 28.7 s [facility] Comment on above: CARDIAC AND PE/DVT THERAPUTIC RANGE 69-97 SEC VASCULAR/THREATENED LIMB THERAPUTIC RANGE 80-112 SEC Testing performed at [address] SCREEN: MRSA ONLY, NARES (IS OLATION SCREEN)on 03-15-2022 MRSA isol Org specific cx Ql (Nose) Not detected NOT DETECTED [facility] STAPHYOCOCCUS AUREUS BY PCR Not detected NOT DETECTED [facility] Comment on above: Testing performed at [address] TYPE AND SCREEN CROSSMATCH C ONVERTIBLEon 03-15-2022 TYPE AND SCREEN CROSSMATCH CONVERTIBLE WORKUP EXPIRES 03/18/2022,2359 ABO/RH(D) A POSITIVE ANTIBODY SCREEN NEGATIVE ARM BAND NUMBER [id number] Testing performed at [place] [address] Normal [facility] Comment on above: Performed By: #### T SCC #### [place] [address] TYPE AND SCREEN - POSSIBLE T RANSFUSIONon 03-15-2022 ABO and Rh group Nom (Bld ) Positive [facility] [employer] SL ARM BAND NUMBER [id number] [facility] ARM BAND NUMBER Testing performed at [address] Blood group antibody screen Ql Negative [facility] EXPIRATION DATE 03/18/2022,2359 [facility] XR KNEE RIGHT 2 VIEWSon 02-25 XR KNEE RIGHT 2 VIEWS EXAM: XR KNEE RIGHT 2 VIEWS HISTORY: COMPARISON: FINDINGS: Joint replacement is seen with overall preservation of normal alignment. No abnormal lucency is seen around the hardware. IMPRESSION: Joint replacement without hardware complication Normal [facility] XR Knee - right 2 [...] IMPRESSION IMPRESSION: Joint replacement without hardware complication [facility] Radiology Study observation (narrative) [facility] XR Knee - right 2 ViewsOrder ed By: Abel Resendiz on 03-15-2022 [facility] Work Phone: Operative Reporton 9 Operative Report MR#: [id number] S [facility] Pt. Name: Tito Goncalves Room #: CC [...] The patient was brought to the laboratory animal caretaker and a transesophageal echocardiogram was performed under [...] Flores MD Date Trans: 06/14/2019 12:23 A/asad [id number] cc: Augustine Metz D.O. [address] [place] [phone] Ryan Cardenas M.D. [address] [place] [id number] Normal [facility] Repor ton 06-21-2017 [facility] Report Type: OrthopedicDictated by: To be signed by: Transcribed by: Transcribed D/ Dictation D/ Report: DATE OF VISIT: 06/08/2017 Re: Tito Goncalves HISTORY OF PRESENT ILLNESS: Patient is here today for followup. He is an established patient of [employer]. He is status post revision arthroplasty for [...] questions or concerns in the meantime. Normal [facility] Vital Signs Date Time Vital Sign Value Performing Clinician Facility 06-04-2024 11:14 Body height 172.72 cm [facility] 06-04-2024 11:040 Body mass index (BMI) [Ratio] 37.1 kg/m2 [facility] 06-04-2024 11:040 Body weight 110.78 kg [facility] 06-04-2024 11:14040 Diastolic blood pressure 70 mm[Hg] [facility] 06-04-2024 11:14040 Heart rate 68 /min [facility] 06-04-2024 11:040 Respiratory rate 18 /min [facility] 06-04-2024 11:14040 SaO2% (BldA) [Mass fraction] 99 % [facility] 06-04-2024 11:14040 Systolic blood pressure 130 mm[Hg] [facility] 04-04-2024 11:040 Body height 172.72 cm DO Augustine Ball Work Phone: [facility] 04-04-2024 11:19040 Body mass index (BMI) [Ratio] 36.6 kg/m2 DO Augustine Ball Work Phone: [facility] 04-04-2024 11:19040 Body weight 109.37 kg DO Augustine Ball Work Phone: [facility] 04-04-2024 11:040 Diastolic blood pressure 77 mm[Hg] DO Augustine Ball Work Phone: [facility] 04-04-2024 11:190400 Heart rate 55 /min DO Augustine Ball Work Phone: [facility] 04-04-2024 11:040 Respiratory rate 12 /min DO Augustine Ball Work Phone: [facility] 04-04-2024 11:19-0400 Systolic blood pressure 151 mm[Hg] DO Augustine Ball Work Phone: [facility] 02-27-2024 09:21-0400 Body height 172.72 cm DO Augustine Ball Work Phone: [facility] 02-27-2024 09:21-0400 Body mass index (BMI) [Ratio] 36.7 kg/m2 DO Augustine Ball Work Phone: [facility] 02-27-2024 09:21-0400 Body weight 109.48 kg DO Augustine Ball Work Phone: [facility] 02-27-2024 09:21-0400 Diastolic blood pressure 72 mm[Hg] DO Augustine Ball Work Phone: [facility] 02-27-2024 09:21-0400 Heart rate 60 /min DO Augustine Ball Work Phone: [facility] 02-27-2024 09:21-0400 Respiratory rate 12 /min DO Augustine Ball Work Phone: [facility] 02-27-2024 09:21-0400 Systolic blood pressure 152 mm[Hg] DO Augustine Ball Work Phone: [facility] 02-24-2024 17:02-0400 Diastolic blood pressure 70 mm[Hg] DO Augustine Ball Work Phone: [facility] 02-24-2024 17:02-0400 Heart rate 55 /min DO Augustine Ball Work Phone: [facility] 02-24-2024 17:02-0400 Respiratory rate 16 /min DO Augustine Ball Work Phone: [facility] 02-24-2024 17:02-0400 SaO2% (BldA) [Mass fraction] 97 % DO Augustine Ball Work Phone: [facility] 02-24-2024 17:02-0400 Systolic blood pressure 132 mm[Hg] DO Augustine Ball Work Phone: [facility] 02-24-2024 16:20-0400 Body temperature 98 [degF] DO Augustine Ball Work Phone: [facility] 02-24-2024 15:55-0400 Inhaled oxygen flow rate 8 L/min DO Augustine Ball Work Phone: [facility] 02-24-2024 15:38-0400 Body height 182.88 cm DO Augustine Ball Work Phone: [facility] 02-24-2024 15:38-0400 Body mass index (BMI) [Ratio] 32.5 kg/m2 DO Augustine Ball Work Phone: [facility] 02-24-2024 15:38-0400 Body weight 109 kg DO Augustine Ball Work Phone: [facility] 01-31-2024 15:34-0400 Body height 181.61 cm [facility] 01-31-2024 15:34-0400 Body mass index (BMI) [Ratio] 34.5 kg/m2 [facility] 01-31-2024 15:34-0400 Body weight 114.07 kg [facility] 01-31-2024 15:34-0400 Diastolic blood pressure 79 mm[Hg] [facility] 01-31-2024 15:34-0400 Heart rate 53 /min [facility] 01-31-2024 15:34-0400 Respiratory rate 12 /min [facility] 01-31-2024 15:34-0400 Systolic blood pressure 130 mm[Hg] [facility] 10-31-2023 10:30-0500 Body height Augustine Ball Other [facility] [employer] Other 10-31-2023 10:30-0500 Body mass index (BMI) [Ratio] 33.47 kg/m2 Augustine Ball Other [facility] [employer] Other 10-31-2023 10:30-0500 Body weight 110.41 kg Augustine Ball Other [employer] Other 10-31-2023 10:30-0500 Diastolic blood pressure 68 mm[Hg] Augustine Ball Other [employer] Other 10-31-2023 10:30-0500 Respiratory rate 12 /min Augustine Ball Other [employer] Other 10-31-2023 10:30-0500 Systolic blood pressure 122 mm[Hg] Augustine Ball Other [employer] Other 03-16-2023 11:19-0400 Body height 182.9 cm [employer] Work Phone: [employer] 03-16-2023 11:19-0400 Body mass index (BMI) [Ratio] 33.23 kg/m2 [employer] Work Phone: [facility] [facility] 03-16-2023 11:19-0400 Body temperature 97.2 [degF] [employer] Work Phone: [facility] 03-16-2023 11:19-0400 Body weight 111.13 kg Azul [employer] Work Phone: [facility] 01-05-2023 12:00-0400 Body height Augustine Ball Other [employer] Other 01-05-2023 12:00-0400 Body mass index (BMI) [Ratio] 33.36 kg/m2 Augustine Ball Other [employer] Other 01-05-2023 12:00-0400 Body weight 110.04 kg Augustine Ball Other [employer] Other 01-05-2023 12:00-0400 Diastolic blood pressure 70 mm[Hg] Augustine Ball Other [employer] Other 01-05-2023 12:00-0400 Respiratory rate 12 /min Augustine Ball Other [employer] Other 01-05-2023 12:00-0400 Systolic blood pressure 118 mm[Hg] Augustine Ball Other [employer] Other 10-04-2022 12:00-0500 Body height Augustine Ball Other [employer] Other 10-04-2022 12:00-0500 Body mass index (BMI) [Ratio] 33.44 kg/m2 Augustine Ball Other [employer] Other 10-04-2022 12:00-0500 Body weight 110.32 kg Augustine Ball Other [employer] Other 10-04-2022 12:00-0500 Diastolic blood pressure 78 mm[Hg] Augustine Ball Other [employer] Other 10-04-2022 12:00-0500 Respiratory rate 12 /min Augustine Ball Other [facility] Other 10-04-2022 12:00-0500 Systolic blood pressure 128 mm[Hg] Augustine Ball Other [employer] Other 10-01-2022 08:30-0500 Diastolic blood pressure 77 mm[Hg] [facility] 10-01-2022 08:30-0500 Systolic blood pressure 132 mm[Hg] [facility] 07-08-2022 11:47-0400 Body height 182.9 cm Pastor Bedoya MD Work Phone: [employer] 07-08-2022 11:47-0400 Body mass index (BMI) [Ratio] 33.23 kg/m2 Pastor Bedoya MD Work Phone: [facility] [employer] [facility] 07-08-2022 11:47-0400 Body weight 111.13 kg Patsor Bedoay MD Work Phone: [facility] 05-03-2022 08:48-0400 Blood Pressure Location [facility] 05-03-2022 08:48-0400 Diastolic blood pressure 67 mm[Hg] [facility] 05-03-2022 08:48-0400 Heart rate 70 /min [facility] 05-03-2022 08:48-0400 Respiratory rate 16 /min [facility] 05-03-2022 08:48-0400 Systolic blood pressure 120 mm[Hg] [facility] 04-08-2022 09:49-0400 Body height 182.9 cm Azul Rachel [employer]PA[employer] Work Phone: [employer] [facility] 04-08-2022 09:49-0400 Body mass index (BMI) [Ratio] 33.23 kg/m2 Azul Rachel BOW REPAIRER CUSTOM-AWNING HANGER HELPER Work Phone: [employer] [facility] 04-08-2022 09:49-0400 Body temperature 96.91 [degF] Azul Rachel BOW REPAIRER CUSTOM-AWNING HANGER HELPER Work Phone: [facility] 04-08-2022 09:49-0400 Body weight 111.13 kg Azul Rachel BOW REPAIRER CUSTOM-AWNING HANGER HELPER Work Phone: [employer] 03-16-2022 11:00-0400 Body temperature 97.7 [degF] Pastor Bedoya MD Work Phone: [employer] 03-16-2022 11:00-0400 Diastolic blood pressure 70 mm[Hg] Pastor Bedoya MD Work Phone: [facility] 03-16-2022 11:00-0400 Heart rate 77 /min Pastor Bedoya MD Work Phone: [facility] 03-16-2022 11:00-0400 Respiratory rate 14 /min Pastor Bedoya MD Work Phone: [facility] [facility] 03-16-2022 11:00-0400 SaO2% (BldA) [Mass fraction] 96 % Pastor Bedoya MD Work Phone: [facility] [facility] 03-16-2022 11:00-0400 Systolic blood pressure 142 mm[Hg] Pastor Bedoya MD Work Phone: [facility] 03-15-2022 09:00-0400 Body height 182.9 cm Pastor Bedoya MD Work Phone: [facility] 03-15-2022 09:00-0400 Body mass index (BMI) [Ratio] 31.73 kg/m2 Pastor Bedoya MD Work Phone: [facility] 03-15-2022 09:00-0400 Body weight 106.14 kg Pastor Bedoya MD Work Phone: [facility] 2022 12:57-0400 Body height 182.9 cm Pastor Bedoya MD Work Phone: [facility] 2022 12:57-0400 Body mass index (BMI) [Ratio] 33.23 kg/m2 Pastor Bedoya MD Work Phone: [facility] 2022 12:57-0400 Body temperature 97.2 [degF] Pastor Bedoya MD Work Phone: [facility] 2022 12:57-0400 Body weight 111.13 kg Pastor Bedoya MD Work Phone: [facility] 11-04-2021 14:30-0500 Body height Carmen Kahn Other [facility] [employer] Other 03-20-2020 11:06-0400 BMI (Body Mass Index) 33.63 kg/m2 [facility] 03-20-2020 11:06-0400 Body Temperature 97.5 [degF] [facility] 03-20-2020 11:06-0400 Body weight 112.49 kg [facility] 03-20-2020 11:06-0400 Height 182.9 cm [facility] 1946 00:00-0500 >na< Damari Rojas Dept. of Dermato logy Encounters Encounter Date Encounter Type Care Provider Facility Start: 06-19-2024 End: 06-19-2024 ambulatory OSMAN SHAH Not Available Start: 06-08-2024 End: 06-08-2024 ambulatory JOSE R DODD Not Available Start: 06-04-2024 End: 06-04-2024 ambulatory [facility] Work Phone: Start: 06-04-2024 End: 06-04-2024 Patient encounter procedure [facility] Work Phone: Start: 05-16-2024 End: 05-16-2024 ambulatory DO Augustine Ball Work Phone: [facility] Work Phone: Start: 05-16-2024 End: 05-16-2024 Patient encounter procedure DO Augustine Ball Work Phone: [facility] Work Phone: Start: 04-18-2024 Non-patient / Non-visit DO Alo Metz Work Phone: [facility] Work Phone: Start: 04-12-2024 End: 04-12-2024 [facility] Start: 04-04-2024 End: 04-04-2024 ambulatory AUGUSTINE TERRELLK Not Available Start: 04-04-2024 End: 04-04-2024 ambulatory DO Augustine Metz Work Phone: [facility] Work Phone: Start: 04-04-2024 End: 04-04-2024 Patient encounter procedure DO Augustine Metz Work Phone: [facility] Work Phone: Start: 04-02-2024 Non-patient / Non-visit [facility] Work Phone: Start: 04-02-2024 Non-patient / Non-visit DO Alo Metz Work Phone: [facility] Work Phone: Start: 04-01-2024 Non-patient / Non-visit DO Alo Metz Work Phone: [facility] Work Phone: Start: 03-22-2024 End: 03-22-2024 ambulatory [facility] Start: 03-16-2024 End: 03-16-2024 ambulatory [facility] Start: 03-09-2024 End: 03-09-2024 ambulatory JOSE R DODD Not Available Start: 03-06-2024 End: 03-06-2024 ambulatory AUGUSTINE Laure TERRELLK Not Available Start: 02-27-2024 End: 02-27-2024 ambulatory AUGUSTINE W NIDHIK Not Available Start: 02-27-2024 End: 02-27-2024 ambulatory DO Augustine Metz Work Phone: [facility] Work Phone: Start: 02-27-2024 End: 02-27-2024 Patient encounter procedure DO Augustine Ball Work Phone: [facility] Work Phone: Start: 02-24-2024 End: 02-24-2024 Admission to same day surgery center DO Augustine Ball Work Phone: [facility] Start: 02-24-2024 End: 02-24-2024 ambulatory DO Augustine Ball Work Phone: [facility] Work Phone: Start: 02-16-2024 End: 02-16-2024 Patient encounter procedure DO Augustine Ball Work Phone: [facility] Work Phone: Start: 02-16-2024 End: 02-16-2024 ambulatory DO Augustine Ball Work Phone: [facility] Work Phone: Start: 02-16-2024 Encounter for preprocedural cardiovascular examination Augustine Freitas [facility] Start: 02-15-2024 End: 02-15-2024 ambulatory AUGUSTINE FREITAS Not Available Start: 02-15-2024 End: 02-15-2024 ambulatory CHRISTIN BOLTON Not Available Start: 02-09-2024 End: 02-09-2024 ambulatory [facility]AD[facility] Start: 01-31-2024 End: 01-31-2024 ambulatory [facility] Work Phone: Start: 01-31-2024 End: 01-31-2024 Patient encounter procedure [facility] Work Phone: Start: 01-31-2024 Non-patient / Non-visit [facility] Work Phone: Start: 01-29-2024 Evaluation and management of inpatient BRIGITTE PERRY [facility] Start: 01-27-2024 [facility] Start: 01-26-2024 Evaluation and management of inpatient LIONEL [facility] Start: 01-26-2024 Evaluation and management of inpatient LIONEL [facility] Start: 01-25-2024 Evaluation and management of inpatient LIONEL [facility] Start: 01-25-2024 Evaluation and management of inpatient [facility] Start: 01-25-2024 Evaluation and management of inpatient [facility] Start: 01-25-2024 Evaluation and management of inpatient [facility] Start: 01-25-2024 Evaluation and management of inpatient [facility] Start: 01-24-2024 End: 01-29-2024 Evaluation and management of inpatient [facility] Start: 01-18-2024 Non-patient / Non-visit [facility] Work Phone: Start: 01-10-2024 End: 01-10-2024 ambulatory OSMAN SHAH Not Available Start: 12-30-2023 End: 12-30-2023 ambulatory JOSE R DODD Not Available Start: 12-16-2023 Non-patient / Non-visit [facility] Work Phone: Start: 11-01-2023 End: 11-01-2023 ambulatory Augustine Metz Other [employer] Other Start: 11-01-2023 Telephone encounter Augustine Metz [facility] Start: 10-31-2023 End: 10-31-2023 ambulatory Augustine Metz Other [employer] Other Start: 10-31-2023 Office outpatient vi sit 25 minutes Augustine Metz [facility] Start: 10-28-2023 [facility] flowsheet Jose R mackay DO Work Phone: [facility] Start: 10-28-2023 Bamboo flowsheet Jose R mackay DO Work Phone: [facility] Start: 10-28-2023 End: 10-28-2023 ambulatory JOSE R DODD Not Available Start: 10-24-2023 End: 10-24-2023 ambulatory AB [facility] Start: 09-16-2023 End: 01-24-2024 ambulatory [facility] Start: 09-06-2023 End: 09-06-2023 ambulatory [facility] Start: 08-29-2023 End: 08-29-2023 ambulatory JOSE R DODD Not Available Start: 08-27-2023 End: 08-29-2023 ambulatory JOSE R DODD Not Available Start: 08-26-2023 End: 08-26-2023 ambulatory JOSE R DODD Not Available Start: 07-11-2023 End: 07-11-2023 ambulatory Augustine Metz Other [employer] Other Start: 07-11-2023 Telephone encounter Augustine PHILIPPE [facility] Start: 07-10-2023 End: 07-10-2023 ambulatory Augustine Metz Other [employer] Other Start: 07-10-2023 Telephone encounter Augustine PHILIPPE [facility] Start: 07-05-2023 End: 07-05-2023 Emergency department patient visit Augustine Metz Facility:[facility] Start: 03-16-2023 ambulatory AZUL RACHEL [facility] Start: 03-16-2023 End: 03-16-2023 Office outpatient visit 15 minutes Azul LAN Work Phone: [facility] Comment on above: Hx of total knee art hroplasty, right (Primary Dx) Start: 03-16-2023 End: 03-16-2023 Subsequent hospital visit by physician Azul LAN Work Phone: [facility] Start: 02-01-2023 ambulatory AUGUSTINE METZ Facilit y:[facility] Start: 01-24-2023 End: 02-23-2023 ambulatory SHAIKH Tiburcio PRICE Facility:H1 Start: 01-22-2023 End: 01-22-2023 ambulatory Augustine Metz Other [employer] Other Start: 01-22-2023 Telephone encounter Augustine Metz FP [facility] Start: 2023 End: 01-22-[address] AUGUSTINE METZ Facility:[facility]1 Start: 01-05-2023 End: 01-05-2023 ambulatory Augustine Metz Other [employer] Other Start: 01-05-2023 Office outpatient vi sit 25 minutes Augustine Metz [facility] Start: 12-27-2022 End: 2023 ambulatory SHAIKH Tiburcio PRICE Facility:[facility]1 Start: 11-24-2022 End: 12-24-2022 ambulatory SHAIKH Tiburcio PRICE Facility:[facility]1 Start: 11-10-2022 End: 11-10-2022 ambulatory Augustine Metz Other [employer] Other Start: 11-10-2022 Telephone encounter Augustine Metz FP [facility] Start: 11-09-2022 Telephone encounter Augustine Metz [facility] Start: 11-09-2022 End: 11-10-2022 ambulatory AUGUSTINE METZ [facility] [employer] Other Start: 11-08-2022 ambulatory AUGUSTINE METZ Facilit y:[facility] Start: 11-01-2022 End: 11-02-[address] DOCTOR ABERNATHY Facility:[facility]1 Start: 10-28-2022 ambulatory AUGUSTINE METZ Facilit y:[facility] Start: 10-27-2022 End: 11-24-2022 ambulatory SHAIKH Tiburcio PRICE Facility:[facility]1 Start: 10-26-2022 End: 10-27-2022 ambulatory PUJA HOLBROOK MD Facility:[facility] Start: 10-19-2022 End: 01-25-[address] AUGUSTINE METZ Facility:[facility]1 Start: 10-04-2022 Damari Rojas Dept. of D ermatology Start: 10-04-2022 End: 10-04-2022 ambulatory Augustine Metz Other [employer] Other Start: 10-04-2022 Office outpatient vi sit 25 minutes Augustine Metz [facility] Start: 10-01-2022 ambulatory Ms. Osman Shah Facility:[id number] Start: 09-27-2022 End: 10-27-2022 ambulatory SHAIKH Tiburcio PRICE Facility:[facility]1 Start: 09-14-2022 Damari Rojas Dept. of D ermatology Start: 09-09-2022 Pre-procedure evaluation check Augustine Metz Other [employer] Other Start: 09-07-[address] Macario Bui Facility:[id number] Start: 08-26-2022 End: 09-26-2022 ambulatory SHAIKH Tiburcio PRICE Facility:[facility]1 Start: 07-27-2022 End: 08-25-2022 ambulatory SHAIKH Tiburcio PRICE Facility:[facility]1 Start: 07-13-2022 End: 07-14-[address] AUGUSTINE METZ Facility:[facility]1 Start: 07-08-2022 ambulatory PASTOR BEDOYA [facility] Start: 07-08-2022 End: 07-08-2022 Office outpatient visit 15 minutes Pastor Bedoya MD Work Phone: [facility] Comment on above: Hx of total knee art hroplasty, right (Primary Dx) Start: 07-08-2022 End: 07-08-2022 Subsequent hospital visit by physician Pastor Bedoya MD Work Phone: [facility] Start: 06-28-2022 End: 06-29-[address] AUGUSTINE METZ Facility:H1 Start: 06-28-2022 End: 07-26-2022 ambulatory SHAIKH Tiburcio PRICE Facility:[facility]1 Start: 06-15-2022 End: 06-16-[address] AUGUSTINE METZ Facility:[facility]1 Start: 05-27-2022 End: 06-26-2022 ambulatory SHAIKH Tiburcio PRICE Facility:[facility]1 Start: 05-03-2022 End: 05-03-2022 Patient encounter procedure Mc Blackman G[facility] Start: 04-26-2022 End: 04-27-[address] AUGUSTINE METZ Facility:[facility]1 Start: 04-26-2022 End: 05-26-2022 ambulatory SHAIKH Tiburcio PRICE Facility:[facility]1 Start: 04-19-2022 End: 05-08-[address] AUGUSTINE METZ Facility:[facility]1 Start: 04-08-2022 ambulatory AZUL RACHEL [facility] Start: 04-08-2022 End: 04-08-2022 Postop follow up visit related to original px Azul LAN Work Phone: [facility] Comment on above: Hx of total knee art hroplasty, right (Primary Dx) Start: 04-08-2022 End: 04-08-2022 Subsequent hospital visit by physician Azul LAN Work Phone: [facility] Start: 04-07-2022 End: 04-08-[address] AUGUSTINE METZ Facility:H1 Start: 03-26-2022 End: 04-23-2022 ambulatory SHAIKH Tiburcio PRICE Facility:H1 Start: 03-15-2022 End: 03-16-2022 Patient encounter status Pastor Bedoya MD Work Phone: [facility] Start: 03-15-2022 End: 03-16-2022 Subsequent hospital visit by physician Pastor Bedoya MD Work Phone: [facility] Comment on above: S/P total knee arthr oplasty, right Start: 2022 End: 2022 Office outpatient new 60 minutes Pastor Bedoya MD Work Phone: [facility] Comment on above: Right knee pain, uns pecified chronicity (Primary Dx); Pain in prosthetic joint, sequela Start: 2022 End: 2022 Subsequent hospital visit by physician Pastor Bedoya MD Work Phone: [facility] Start: 11-04-2021 End: 11-04-2021 ambulatory Carmen Kahn Other [employer] Other Start: 11-04-2021 Office outpatient vi sit 25 minutes Carmen Kahn [facility] G[facility] Start: 11-03-2021 End: 11-03-2021 ambulatory Carmen Kahn Other [employer] Other Start: 11-03-2021 Telephone encounter Carmen Lazarooli [facility] Gastro[facility]ology Start: 03-20-2020 End: 03-20-2020 Office outpatient visit 15 minutes Pastor Bedoya Work Phone: [facility] Comment on above: 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) Start: 03-20-2020 End: 03-20-2020 Subsequent hospital visit by physician Azul LAN Work Phone: [facility] Start: 06-13-2019 End: 06-14-2019 Patient encounter procedure GENE JONES Facility:[facility] Procedures Date Procedure Procedure Detail Performing Clinician Start: 02-24-2024 Excision of lesion of cheek DO Augustine Metz Work Phone: Start: 10-28-2023 Computerized ophthalmic imaging retina Jose R Dodd DO Work Phone: Start: 10-28-2023 End: 10-28-2023 [facility] medical xm&eval comprhnsv estab pt 1/> Advanced [...] Phone: Start: 03-15-2022 Prothrombin time Azul Rachel BOW REPAIRER CUSTOM-AWNING HANGER HELPER Work Phone: Start: 03-15-2022 Cultyp nuc acid amp prb cult/isolate ea orgnism Azul Rachel BOW REPAIRER CUSTOM-AWNING HANGER HELPER Work Phone: Start: 03-15-2022 Sars-cov-2 detection by dna/rna Azul Andrews james BOW REPAIRER CUSTOM-AWNING HANGER HELPER Work Phone: Start: 03-15-2022 Antibody screen rbc each serum technique Pastor Bedoya MD Work Phone: Start: 03-15-2022 End: 03-15-2022 Thromboplastin time partial plasma/whole blood Azul Rachel BOW REPAIRER CUSTOM-AWNING HANGER HELPER Work Phone: Start: 01-10-2020 Renal lithotripsy [facility] Start: 10-23-2019 Cystoscopic removal of ureteric stent [facility] Start: 09-26-2019 Endoscopic retrograde cholangiopancreatography [facility] Cholecystectomy [facility] Colonoscopy cM [facility]MON[facility] Depression screening Benjami n Isaías Other Total knee replacement Ro ALMONTE Plan of Treatment Date Care Activity Detail Author Start: 02-24-2024 End: 02-24-2024 [facility] Start: 01-10-2024 End: 01-10-2024 Patient encounter procedure 01/10/2024 9:35 AM EDT Office Visit [facility] [address] [place] [address] Osman Shah BOW REPAIRER CUSTOM-AWNING HANGER HELPER [address] [place] [address] [facility] Start: 10-28-2023 End: 10-28-2023 Patient encounter procedure 10/28/2023 9:30 AM EST Procedure Visit [facility] [address] [place] [id number] Jose R Dodd, [address] [place] [address] Arrived [facility] Comment on above: Arrived Start: 05-27-2023 Influenza vaccination Influenza Vacc ine (#1) [facility] Start: 03-16-2023 End: 03-16-2023 Patient encounter procedure 03/16/2023 Office Visit Orthopaedics Azul Rachel, BOW REPAIRER CUSTOM-AWNING HANGER HELPER [address] [place] [address] [facility] Start: 10-22-2022 COVID-19 VACCINE (6 - Pfizer series) COVID-19 VACCINE (6 - Pfizer series) [facility] Start: 08-21-2022 Hemoglobin A1c measurement HBA1C TEST [facility] Start: 07-08-2022 End: 07-08-2022 Patient encounter procedure 07/08/2022 Office Visit Orthopaedics Pastor Bedoya MD [address] [facility] [place] [address] [facility] Start: 05-27-2022 Influenza vaccination A [facility] Start: 04-08-2022 End: 04-08-2022 Patient encounter procedure 04/08/2022 Office Visit Orthopaedics Azul Rachel, BOW REPAIRER CUSTOM-AWNING HANGER HELPER [address] [place] [address] [facility] Start: 02-18-2022 End: 02-18-2022 ambulatory 02/18/2022 Pre-Operative Nurse Assessment Internal Medicine [facility] Pre Admission Start: 05-27-2020 Influenza vaccination INFLUENZ A VACCINE (Season Ended) [facility] Start: 12-25-2014 Pneumococcal vaccination PNEUMOCOCCAL VACCINE SERIES (2 - PCV) [facility] Start: 12-25-2014 Pneumococcal Vaccine : 65+ Years (2 - PCV) Pneumococcal Vaccine: 65+ Years (2 - PCV) [facility] Start: 2011 Abdominal aortic aneurysm screening ABDOMINAL AORTIC ANEURYSM HIGH RISK SCREEN [facility] Start: 2011 Pneumococcal vaccination [facility] Start: 01-22-1996 Colonoscopy COLORECTAL CAN CER SCREENING DISCUSSION [facility] Start: 01-22-1996 Prostate specific antigen measurement PROSTATE CANCER SCREENING DISCUSSION [facility] Start: 01-22-1996 Zoster vaccine hzv live for subcutaneous use ZOSTER (SHINGLES) VACCINE (1 of 2) [facility] Start: 1991 Colonoscopy COLORECTAL CAN CER SCREENING DISCUSSION [facility] Start: 1991 Screening for malignant neoplasm of colon COLORECTAL CANCER SCREENING DISCUSSION [facility] Start: 1986 Fasting lipid profile LIPID SCREENIN G [facility] Start: 1965 Third diphtheria, tetanus and acellular pertussis (DTaP) vaccination TDAP (ADULT) [facility] Start: 01-22-1964 Tetanus vaccination [facility] Start: 1951 COVID-19 VACCINE (#1) COVID-19 VACCI NE (#1) [facility] Start: 1946 COVID-19 VACCINE (#1) COVID-19 VACCI NE (#1) [facility] Start: 1946 Diabetic foot examination DIABETIC FOOT EXAM [facility] Start: 1946 Diabetic retinal eye exam EYE EXAM [facility] Start: 1946 Glaucoma screening EYE EXAM [facility] Start: 1946 Hepatitis B vaccination HEP B VACCINE (1 of 3 - 3-dose series) [facility] Start: 1946 Hepatitis C antibody , confirmatory test HEPATITIS C VIRUS SCREENING [facility] Start: 1946 Hepatitis C screening HEPATITI S C VIRUS SCREENING [facility] Start: 1946 Lipid panel LIPIDS [facility] Start: 1946 LIPIDS LIPIDS [facility] Start: 1946 Microalbumin measurement, urine, quantitative URINE MICROALBUMIN TEST [facility] Start: 1946 Potassium [Moles/Vol] POTASSIUM A [facility] Start: 1946 Tetanus vaccination TETANUS [facility] Start: 1946 Urine screening for protein URINE MICROALBUMIN TEST [facility] Patient Education Know your Meds [facility] Work Phone: Patient referral [facility] Work Phone: Radiography for bone length studies XR BONE LENGTH STUDY Imaging Routine Hx of total knee arthroplasty, right 07/08/2022 11:01 AM EDT [facility] Work Phone: SURGICAL PATHOLOGY REQUEST SURGICAL PATHOLOGY REQUEST Surg Path Routine Osteoarthritis of right knee, unspecified osteoarthritis type Release Upon Ordering for 1 Occurrences starting 03/15/2022 [facility] Work Phone: Comment on above: Release Upon Orderin g for 1 Occurrences starting 03/15/2022 X-ray of left knee XR KNEE LEFT 3 VIEWS Imaging Routine History of revision of total replacement of left knee joint 03/20/2020 10:48 AM EDT [employer] XR Knee - left 3 Views XR KNEE L EFT 3 VIEWS Imaging Routine Pain in prosthetic joint, sequela 2022 1:09 PM EDT [facility] XR Knee - right 3 Views XR KNEE RIGHT 3 VIEWS Imaging Routine Hx of total knee arthroplasty, right 04/08/2022 10:04 AM EDT [facility] XR Knee - right 3 Views XR KNEE RIGHT 3 VIEWS Imaging Routine Hx of total knee arthroplasty, right 07/08/2022 11:01 AM EDT [facility] XR Knee - right 3 Views XR KNEE RIGHT 3 VIEWS Imaging Routine Hx of total knee arthroplasty, right 03/16/2023 11:03 AM EDT [facility] XR Knee - right 4 Views XR KNEE RIGHT 4+ VIEWS Imaging Routine Right knee pain, unspecified chronicity 2022 12:51 PM EDT [facility] Immunizations Immunization Date Immunization Notes Care Provider Dunia burrell 12-27-2023 COVID-19 (PFIZER) 12Y and older DO Augustine Metz Work Phone: [facility] 07-08-2023 influenza virus vaccine, unspecified formulation [facility] 07-08-2023 influenza, high dose seasonal, preservative-free Augustine Metz Other [facility] [employer] Other 06-21-2023 COVID-19 (PFIZER) 12Y and older DO Augustine Metz Work Phone: [facility] 03-03-2023 zoster vaccine recombinant Augustine Ball Other [facility] 01-01-2023 zoster vaccine recombinant Augustine Ball Other [facility] 06-29-2022 influenza, high dose seasonal, preservative-free Augustine Metz Other [facility] [employer] Other 06-29-2022 influenza virus vaccine, split virus (incl. purified surface antigen) Augustine Metz Other [facility] [employer] Other 06-29-2022 influenza virus vaccine, unspecified formulation Jose R Dodd DO Work Phone: [facility] 06-22-2022 COVID-19 Pfizer (bivalent) Augustine Metz Other [facility] 04-17-2022 COVID-19 Comirnaty (Pfizer) Tri-Sucrose 12+ DO Augustine Metz Work Phone: [facility] 07-15-2021 influenza virus vaccine, split virus (incl. purified surface antigen) Augustine Metz Other [facility] [employer] Other 07-15-2021 influenza virus vaccine, unspecified formulation [facility] 06-22-2021 COVID-19 Vaccine Pfi zer - Documentation Purposes Only Augustine Metz Other [facility] 11-20-2020 COVID-19 Vaccine Pfi zer - Documentation Purposes Only Augustine Metz Other [facility] 10-30-2020 COVID-19 Vaccine Pfi zer - Documentation Purposes Only Augustine Metz Other [facility] 07-01-2020 influenza virus vaccine, split virus (incl. purified surface antigen) Augustine Metz Other [facility] Other 07-01-2020 influenza virus vaccine, unspecified formulation [facility] 07-06-2019 influenza virus vaccine, split virus (incl. purified surface antigen) Augustine Metz Other [facility] Other 07-06-2019 influenza virus vaccine, unspecified formulation [facility] 07-12-2018 influenza virus vaccine, split virus (incl. purified surface antigen) Augustine Metz Other [employer] Other 07-12-2018 influenza virus vaccine, unspecified formulation [facility] 07-25-2017 influenza virus vaccine, split virus (incl. purified surface antigen) Augustine Metz Other [employer] Other 07-25-2017 influenza virus vaccine, unspecified formulation [facility] 07-07-2016 influenza virus vaccine, split virus (incl. purified surface antigen) Augustine Metz Other [employer] Other 07-07-2016 influenza virus vaccine, unspecified formulation [facility] 07-18-2015 pneumococcal conjuga te vaccine, 13 valent Augustine Metz Other [facility] 06-11-2015 influenza virus vaccine, split virus (incl. purified surface antigen) Augustine Isaías Other [employer] Other 06-11-2015 influenza virus vaccine, unspecified formulation [facility] 06-17-2014 tetanus and diphther ia toxoids, adsorbed, preservative free, for adult use (5 Lf of tetanus toxoid and 2 Lf of diphtheria toxoid) Augustine Isaías Other [facility] 08-28-2013 pneumococcal polysaccharide vaccine, 23 valent Augustine Metz Other [facility] 07-26-2013 tetanus and diphther ia toxoids, adsorbed, preservative free, for adult use (5 Lf of tetanus toxoid and 2 Lf of diphtheria toxoid) Augustine Metz Other [facility] 07-18-2013 zoster vaccine, live Benjami n Isaías Other [facility] 1945 pneumococcal conjuga te vaccine, 7 valent Damari Rojas Dept. of Dermatology Payers Date Payer Category Payer Self-pay [id number] 2017 Unknown [employer] M MO TRADITIONAL [id number] 2017-Present [id number]. [id number] 2010 Medicare MEDICARE MEDICAR E A AND B [id number] 2010-Present [place] [id number].3. [id number] 2008 Medicare 1.2.840.192278. 1.13.172.2.7.3. [id number] 2008 Unknown 1.2.840.580142. 1.13.172.2.7.3. [id number] 1959 Medicare [id number] 2.16.840.1.037050.19 1959 Unknown [id number] 1946 Unknown [id number] 2.16.840.1.871627.3.579.2.647 1946 Unknown [id number] 2.16.840.1.925414.3.579.2.356 1946 Unknown [id number] 2.16.840.1.972247.3.579.2.356 1946 Unknown [id number] 2.16.840.1.553586.3.579.2.159 1946 Unknown [id number] 2.16.840.1.878929.3.579.2.159 1946 Unknown [id number] 2.16.840.1.799964.3.579.2.159 1946 Unknown [id number] 2.16.840.1.849977.3.579.2.159 1946 Unknown [id number] 2.16.840.1.277619.3.579.2.159 1946 Unknown [id number] 2.16.840.1.666668.3.579.2.593 1946 Unknown [id number] 2.16.840.1.514371.3.579.2.593 1946 Unknown [id number] 2.16.840.1.405072.3.579.2.593 1946 Unknown [id number] 2.16.840.1.723362.3.579.2.593 1946 Unknown [id number] 2.16.840.1.761591.3.579.2.593 1946 Unknown [id number] 2.16.840.1.550892.3.579.2.593 1946 Unknown [id number] 2.16.840.1.459648.3.579.2.593 1946 Unknown [id number] 2.16.840.1.404823.3.579.2.593 1946 Unknown [id number] 2.16.840.1.214172.3.579.2.593 1946 Unknown [id number] 2.16.840.1.888695.3.579.2.593 1946 Unknown [id number] 2.16.840.1.212344.3.579.2.593 1946 Unknown [id number] 2.16.840.1.980971.3.579.2.593 1946 Unknown [id number] 2.16.840.1.495771.3.579.2.593 1946 Unknown [id number] 2.16.840.1.125236.3.579.2.593 1946 Unknown [id number] 2.840.1.444940.3.579.2.593 1946 Unknown [id number] 2.16840.1.101934.3.579.2.593 1946 Unknown [id number] 2.16.840.1.619071.3.579.2.593 1946 Unknown [id number] 2.16840.1.184558.3.579.2.593 1946 Unknown [id number] 2.840.1.513336.3.579.2.593 1946 Unknown [id number] 2.16840.1.694034.3.579.2.593 1946 Unknown [id number] 2.16.840.1.947450.3.579.2.983 1946 Unknown [id number] 2.16.840.1.485431.3.579.2.983 1946 Unknown [id number] 2.16.840.1.725836.3.579.2.983 1946 Unknown [id number] 2.16.840.1.024663.3.579.2.983 1946 Unknown [id number] 2.16.840.1.472002.3.579.2.983 1946 Unknown [id number] 2.16.840.1.095134.3.579.2.983 1946 Unknown [id number] 2.16.840.1.761110.3.579.2.718 1946 Unknown [id number] 2.16.840.1.178282.3.579.2.1259 1946 Unknown [id number] 2.16.840.1.420419.3.579.2.1259 1946 Unknown [id number] 2.16.840.1.858545.3.579.2.1259 1946 Unknown [id number] 2.16840.1.644581.3.579.2.125 1946 Unknown [id number] 2.16.840.1.420587.3.579.2.125 1946 Unknown [id number] 2.16.840.1.620988.3.579.2.1259 1946 Unknown [id number] 2.16.840.1.086883.3.579.2.1259 1946 Unknown [id number] 2.16.840.1.395331.3.579.2.1259 1946 Unknown [id number] 2.16.840.1.097679.3.579.2.1259 1946 Unknown [id number] 2.16.840.1.732855.3.579.2.1259 1946 Unknown [id number] 2.16.840.1.039826.3.579.2.1259 1946 Unknown [id number] 2.16.840.1.236062.3.579.2.1259 1946 Unknown [id number] 2.16.840.1.360953.3.579.2.1259 1946 Unknown [id number] 2.16.840.1.941531.3.579.2.1259 Medicare [id number] Unknown [facility] [id number] Unknown [id number] 2.16.840.1.420606.3.579.2.531 Unknown [id number] 2.16.840.1.317403.3.579.2.531 Social History Date Type Detail Facility Start: 03-20-2020 End: 04-02-2024 Tobacco smoking status NHIS Former smoker [employer] End: 02-08-1983 History of tobacco use Current smoker [facility] Start: 03-20-2020 End: 07-08-2022 Tobacco use and exposure Former user [facility] End: 02-08-2003 History of tobacco use User of smokeless tobacco [facility] Start: 03-20-2020 End: 03-16-2023 Alcohol intake Current non-drinker of alcohol (finding) [facility] Start: 1945 Sex Assigned At Not on file A [employer] Start: 03-05-2022 End: 03-15-2022 Exposure to SARS-CoV-2 (event) Not sure [facility] Start: 03-16-2023 End: 06-30-2023 Sex Assigned At [facility] [employer] Other Start: 05-03-2022 End: 12-16-2023 Tobacco smoking status Never smoked tobacco (finding) [facility] End: 02-08-1983 [facility] of tobacco [facility]: 09-14-2022 Dept. of D ermatology Start: 1945 Sex Assigned At Male [facility] Start: 03-16-2023 End: 06-30-2023 History of Social function [facility] Gender identity Identifies as milad ramirez gender (finding) [facility] Start: 08-29-2023 End: 10-28-2023 Alcohol intake Lifetime non-drinker (finding) [facility] Start: 06-23-2023 Alcohol Comment caffeine: soda [facility] Medical Equipment Procedure Code Equipment Code [...] 05-03-2022 Functional Status N/A [facility] Clinical Notes 11-04-2021 to 04-12-2024 Note Date & Type Note Facility 04-12-2024 Note [place] [facility] Chief Complaint: Thought he had [...] In April 2019 he presented to the [facility] with atrial fibrillation with controlled ventricular [...] rhythm. Pulses: Radial (more content not included)... [facility] 03-22-2024 Note [facility] Subjective Tito Goncalves is a [...] In April 2019 he presented to the [facility] with atrial fibrillation with controlled ventricular [...] normal. Allergies [place]ro (more content not included)... [facility] 03-16-2024 Note Patient: Tito mejia Procedure Information Date/Time: 03/16/24 1030 Procedure: TRANSESOPHAGEAL ECHO (JESSICA) Location: [facility] Vascular Lab Clinical information reviewed: Allergies Meds Physical Exam Airway Mallampati: II TM distance: >3 FB Neck ROM: full Cardiovascular Rhythm: regular Rate: normal Dental Pulmonary Abdominal Anesthesia Plan ASA 3 other (Conscious sedation.) Anesthetic plan and risks discussed with patient. Use of blood products discussed with patient who consented to blood products. Additional Equipment Requests [facility] 02-09-2024 Note Patient here for fol low up LAAO and pericardial effusion. Still denies chest pain, SOB, palpitations, and lightheadedness/syncope. Doing very well. Review of Systems Constitutional: Positive for malaise/fatigue. Cardiovascular: Positive for leg swelling (resolves by morning). Hematologic/Lymphatic: Bruises/bleeds easily. Musculoskeletal: Positive for arthritis, back pain and myalgias. All other systems reviewed and are negative. [facility] 02-09-2024 Note Cardiovascular Medic ine [place] [facility] SUBJECTIVE Chief Complaint Patient presents with Atrial Fibrillation S/p LAAO with Amulet device Tito Goncalves is a 79 y.o. male here for follow-up. HPI PMHx of paroxysmal a.fib s/p CV'n 2018, s/p LAAO device with Amulet on 01/24/2024, [...] lower leg: Naman (more content not included)... [facility] 01-29-2024 Note Patient discharged w ith family. Patient provided copy of AVS and discharge instructions. All questions and concerns addressed. All belongings with patient [facility] 01-29-2024 Note Hospital Medicine Discharge Summary Final [...] In April 2019 he presented to the [facility] with atrial fibrillation with controlled ventricular [...] switched propafenon to amiodarone. - Not on [facility] AC due to hx of falls and [...] 02/09/2024 9:40 AM Madison Paul NP TIMO [facility] 03/16/2024 10:30 AM [facility] [employer] WORK[employer] HOLDING ROOM [facility] Your medication list START taking these [...] Medications These medications were sent to [facility] - [address] [place] [address] [facility] [place] [address], [facility] [address] amiodarone 200 mg tablet clopidogrel 75 mg tablet Tito is allergic to iodine, penicillins, shellfish containing products, and sulfa (sulfonamide antibiotics). Disposition: Home-Health Care [facility] (06) Discharge Condition: Stable [...] oriented x3. Cardiology: (more content not included)... [facility] 01-29-2024 Note Cardiology Progress Note Subjective Subjective: [...] 86 QT Interval 316 QTC CALCULATION(BAZETT) 453 R-Camden 8 T Wave Camden 100 Impression Atrial fibrillation with rapid ventricular [...] (TTE) limited Result Date: 01/27/2024 1 1 [facility] Heart Station [address] [place] [address] [phone] (fax) Echocardiogram-[facility] Name: TITO GONCALVES Study Date: 01/27/2024 08:18 AM B/P: 147 mmHg/62 mmHg HR: 67 bpm Date of : 1945 Location: [facility] Height: 72 in. Age: 79 year(s) [...] fibrinous material noted. Procedure Staff Reading Group: [facility] Paramedic: MARLEY Donohue, RDCS Ordering Physician: LIONEL MENA Transthoracic echo (TTE) limited Result Date: 01/26/2024 1 1 [facility] Heart Station [address] [place] [address] [phone] (fax) Echocardiogram-[facility] Name: TITO GONCALVES Study Date: 01/26/2024 07:59 AM B/P: 129 mmHg/74 mmHg HR: Date of : 1945 Location: [facility] Height: 72 in. Age: 79 year(s) [...] atrium appears e (more content not included)... [facility] 01-28-2024 Note Cardiology Progress Note Subjective Subjective: [...] 86 QT Interval 316 QTC CALCULATION(BAZETT) 453 R-Camden 8 T Wave Camden 100 Impression Atrial fibrillation with rapid ventricular [...] (TTE) limited Result Date: 01/27/2024 1 1 [facility] Heart Station [address] [place] [address] [phone] (fax) Echocardiogram-[facility] Name: TITO GONCALVES Study Date: 01/27/2024 08:18 AM B/P: 147 mmHg/62 mmHg HR: 67 bpm Date of : 1945 Location: [facility] Height: 72 in. Age: 79 year(s) [...] fibrinous material noted. Procedure Staff Reading Group: [facility] Paramedic: MARLEY Donohue, RDCS Ordering Physician: LIONEL MENA Transthoracic echo (TTE) limited Result Date: 01/26/2024 1 1 [facility] Heart Station [address] [place] [address] [phone] (fax) Echocardiogram-[facility] Name: TITO GONCALVES Study Date: 01/26/2024 07:59 AM B/P: 129 mmHg/74 mmHg HR: Date of : 1945 Location: [facility] Height: 72 in. Age: 79 year(s) [...] size. Right ventr (more content not included)... [facility] 01-28-2024 Note Physical Therapy Physical Therapy Evaluation & Treatment Patient Name: Tito Goncalves : 1945 Today's Date: 01/28/2024 Time in: 1:53 pm Time out: 2:20 pm Total time: 27 minutes 01/28/24 1422 PT Last Visit PT Received On 01/28/24 General Subjective Both RN and pt agreeable to PT this afternoon. Pt denies pain and asleep upon investment underwriter entering room however easily awakens. Cognition Overall Cognitive Status WFL Arousal/Alertness Appropriate responses to stimuli Orientation Level Oriented X4 Following Commands Follows all commands and directions without difficulty Communication Intact Cognition Comments pt had difficulty navigating back to correct room after first bout of ambulation however after 2nd bout able to navigate back to room without external cues from investment underwriter. Therapeutic Exercise Therapeutic Exercise Time Entry 10 [...] tray table within reach. PT Assessment PT Assessment/[employer] Summary Pt continues to progress towards goals [...] vital signs throughout session 01/27/24 02/10/24 -- [facility] 01-28-2024 Note Hospital Medicine Daily Progress Note - 01/28/2024 11:20 AM; Room: [address] [place] [address] Admission: 01/24/2024 10:46 AM; Length of stay: 4 days THE HOSPITALIST TEAM PREFERS TO USE [employer] CHAT FOR COMMUNICATION 7AM-7PM. IF I DO NOT RESPOND WITHIN 15 MINUTES, PLEASE PAGE ME/CALL THROUGH THE INSURANCE COMPLIANCE ANALYST. FROM 7PM-7AM, PLEASE PAGE [phone](COVR) Code Status: Full Code Barriers to Discharge: [...] complication and patient was admitted to the [facility] for over night monitoring to be continued [...] Inpatient Problems Principal Problem: Paroxysmal atrial fibrillation ([facility]) Active Problems: Pericardial effusion Assessment and Plan [...] (Active) Date First Assessed/Time First Assessed: 01/25/24 0778 Hand Hygiene Completed: Yes Primary Wound Type: [...] mg, oral, Daily (more content not included)... [facility] 01-27-2024 Note ---- Attestation signed by Srinath [...] days THE HOSPITALIST TEAM PREFERS TO USE [employer] CH[employer] FOR COMMUNICATION 7AM-7PM. IF I DO NOT RESPOND WITHIN 15 MINUTES, PLEASE PAGE ME/CALL THROUGH THE INSURANCE COMPLIANCE ANALYST. FROM 7PM-7AM, PLEASE PAGE [phone](COVR) Code Status: Full Code Barriers to Discharge: [...] Inpatient Problems Principal Problem: Paroxysmal atrial fibrillation ([facility]) Active Problems: Pericardial effusion Assessment and Plan [...] oral, Nightly ami (more content not included)... [facility] 01-27-2024 Note [facility] CARDIOLOGY INPAT IENT PROGRESS [...] 1 mg/min, Last Rate: 1 mg/min (01/27/24 3743) PRN medications: benzonatate, glucose OR dextrose 50 [...] -- -- -- -- 94 % -- 01/26/24 193 -- -- -- 84 19 93 % [...] 86 QT Interval 316 QTC CALCULATION(BAZETT) 453 R-Camden 8 T Wave Camden 100 Impression Atrial fibrillation with rapid ventricular [...] function is normal. (more content not included)... [facility] 01-27-2024 Note ---- Attestation signed by Jay Benitez PT at 01/27/2024 11:18 AM This investment underwriter (PT) provided one-on-one supervision, direction of patient [...] showed pericardial effusion, pt went to laboratory animal caretaker for pericardiocentesis and currently has a pericardial drain. Discharge: home General Family/Caregiver Present: Yes (daughter) Subjective: RN approved PT eval and OOB activity. Pt supine in bed, agreeable to PT session. Upon completion, pt seated in chair, daughter present, call light given. PT Diagnosis: impaired functional mobility Patient Active Problem List Diagnosis Atrial fibrillation ([facility]/HCC) Hypertensive disorder Mitral valve disorder Obstructive sleep apnea syndrome Arrhythmia Bile duct obstruction Fall Gastroesophageal reflux disease without esophagitis Hyponatremia Mixed hyperlipidemia Pneumobilia Restless leg syndrome S/P total knee arthroplasty, right Stage 3a chronic kidney disease (CMS/HCC) Subdural hematoma ([facility]/HCC) Type 2 diabetes mellitus without complication, without [...] Level of Function Prior Function Level of [place]: Independent with ADLs and functional transfers, Independent [...] No upper extremity (more content not included)... [facility] 01-27-2024 Note Occupational Therapy Occupational Therapy Evaluation [...] Level of Function Prior Function Level of [place]: Independent with ADLs and functional transfers, Independent [...] Eating meals?: None (Independent) Total Score OT [facility]: 21 Assessment/Plan OT Assessment OT Impairments: Decreased ADL status, Decreased endurance, Decreased functional mobility OT Assessment/LICENSED FUNERAL DIRECTOR AND EMBALMER Summary: (needs skilled OT due to weakness [...] times per wee (more content not included)... [facility] 01-26-2024 Note ---- Attestation signed by Lionel [...] G[facility]calves Age - 79 [facility] 1945 [id number] Date of Admission - 01/24/2024 10:46 AM [...] days Lab Units 01/26/24 0333 01/25/24 0438 01/24/24 1556 POTASSIUM mmol/L 3.9 5.0 [...] in limited echocar (more content not included)... [facility] 01-26-2024 Note ---- Attestation signed by Zoran [...] Lilibeth March MD, 81 mg at 01/25/24 100 atorvastatin (Lipitor) tablet 10 mg, 10 mg, [...] Nightly, Lilibeth March MD, 50 mg at 01/25/242125 Objective: Patient Vitals for the past 24 [...] (98.2 ???F) -- 71 17 94 % 01/25/243 -- -- -- -- -- 95 % 01/25/24 2300 106/61 -- -- 83 17 96 % 01/25/24 2200 95/60 -- -- 74 16 96 % 01/25/242131 -- -- -- -- -- 95 % 01/25/24 2100 87/50 -- -- 86 16 93 % 01/25/241999 106/58 -- -- 92 20 95 % 01/25/24 194 95/57 -- -- 86 21 95 % [...] Value Ventricular Rate 52 Atrial Rate 52 SC Interval 184 QRS DURATION 84 QT Interval 424 QTC CALCULATION(BAZETT) 394 P Camden 79 R-Camden 51 T Wave Camden 76 Impression Sinus bradycardia Nonspecific T wave abnormality Abnormal ECG (more content not included)... [facility] 01-26-2024 Note 01/26/24 1243 Admission Assessment Questions Verify insurance with patient Yes Do you understand medical disease or what brought you into the hospital? Yes Who is your current PCP? Dr Metz in [place] Can I schedule a follow up appointment [...] No Does the patient have a case assistant assigned to them through their insurance? No [...] to send link and activate MyChart? No [facility] 01-25-2024 Note ---- Attestation signed by Zoran [...] Lilibeth March MD, 150 mg at 01/24/24 221 sodium chloride 0.9 % infusion, 200 mL/hr, [...] -- -- 54 15 97 % -- 01/25/2415 89/58 -- -- -- -- -- -- 01/25/2410 -- -- -- 55 15 97 % -- 01/25/2410 74/58 -- -- -- -- -- -- 01/25/24 0505 -- -- -- 56 14 96 % -- 01/25/24 0505 72/53 -- -- -- -- -- -- 01/25/24 0500 -- -- -- 54 (!) 0 -- -- 01/25/24 0500 74/52 -- -- 54 15 95 % -- 01/25/245 -- -- -- 53 14 96 % -- 01/25/24 0455 72/54 -- -- -- -- -- -- 01/25/240 -- -- -- 54 14 97 % -- 01/25/24 0450 75/52 -- -- -- -- -- -- 01/25/24 0445 -- -- -- -- -- 97 % -- 01/25/24 0445 75/54 -- -- 54 14 -- -- 01/25/24 0440 -- -- -- 54 15 98 % -- 01/25/24 0439 75/55 -- -- -- -- -- -- 01/25/245 -- -- -- -- -- 97 % -- 01/25/24 0435 100/74 -- -- 55 14 -- -- 01/25/24 0430 -- -- -- 74 16 98 % -- 01/25/24 0425 -- -- -- 53 14 96 % -- 01/25/24 0420 -- -- -- 55 11 95 % -- 01/25/248 70/53 -- -- -- -- -- -- 01/25/24 0 (more content not included)... [facility] 01-25-2024 Note Patient: Tito Batres jackie Procedure Information Date/Time: 05/01/24 1800 Procedure: Pericardiocentesis Location: [facility] [employer] 3 / [facility] (Cath) Providers: Oliver Crane [...] Plan discussed with attending. Additional Equipment Requests [facility] 01-25-2024 Note CLINICAL INFORMATION : Ground level [...] this report. Electronically signed: Trenton Martinez. 6 [facility] 01-25-2024 Note Responded to rr Hypotension fall [...] [facility] 01-24-2024 Note Pharmacy Dosing Serv ice - Vancomycin Initial Consult Note Pharmacy has been consulted for the dosing and evaluation of Drug: Vancomycin Indication: surgical prophylaxis Other Antimicrobial Regimens: None Labs and Renal Function Total body weight: 112 kg (248 lb) [place] body weight: 77.6 kg (171 lb 1.2 [...] afebrile and hemodynamically stable. Presenting to [facility] for closure of left atrial appendage. [...] questions Thank you, Rose Tomas, PharmD, 01/24/24 [facility] 01-24-2024 Note Patient: Tito mejia Procedure Information Date/Time: 01/24/24 1300 Procedure: Left atrial appendage closure (transvenous) - ADRIENNE WILL CALL Location: [facility] [employer] 3 / [facility] (Cath) Providers: Oliver Crane MD Clinical information reviewed: Allergies Meds Physical Exam Airway Mallampati: II TM distance: >3 FB Neck ROM: full Cardiovascular Rhythm: regular Rate: normal Dental Pulmonary Abdominal Anesthesia Plan ASA 3 other (Conscious sedation.) Anesthetic plan and risks discussed with patient. Use of blood products discussed with patient who consented to blood products. Additional Equipment Requests [facility] 01-11-2024 Note Amna Sousa CNP - patient's daughter- called with questions about her dad's upcoming LAAO procedure. She said you had given her instructions for him previously regarding coumadin, but she cannot find it. Can you please call her cell phone when you get a chance? [phone] If you need me to do anything, please let me know. Thanks! :) [facility] 10-31-2023 Evaluation note Encounter Date Diagnosis Assessment [...] are maintaining regular scheduled appts with their wind farm electrical systems designer. Scheduled for LAAO procedure but postponed until spring. Fall precautions. Oct, Obstructive sleep apnea (ICD-10 - G47.33) Auto CPAP 10-15, Facial Mask This patient is aware of the benefits associated with CUBA: With continued use, the patient reduces the risk for VA, CVA, HTN, cardiac dysrhythmias and sudden cardiac [...] Exercise w/ goal of 10% weight loss [employer] Other 02-02-2024 NoteRight Eye Quality was good. Scan locations included subfoveal. Progression has been stable. Findings include abnormal foveal contour, disciform scar. Left Eye Quality was good. Scan locations included subfoveal. Progression has been stable. Findings include normal observations.[id number] History of Present illness Narrative* Jose R Dodd DO - 10/28/2023 9:30 AM EST Images [...] now given soon to be trip to [place] as well as side effects from last treatment in August. He was provided an [employer]msler grid to check daily and note any changes to this. He understands to get ahsanta of his retina specialist in [place] if there was a change. Will see [...] artificial tears were recommended. documented in this encounterE[facility] [id number] Chief Complaint: [...] appropriate mood, affect, and judgement. Transesophageal Echocardiogram-[facility] Name: TITO GONCALVES Study Date: 09/16/2023 09:38 AM B/P: 136 mmHg/70 mmHg HR: Date of : 1945 Location: [facility] Height: 72 in. Age: 78 year(s) Patient Room : [facility] PO[facility] Weight: 246 lb. Gender: Male Patient Status: OutPt BSA: 2.33 m2 Indication: Atrial Fibrillation, Pre LAAO closure Examination: JESSICA/Limited Doppler/CFI, Agitated Saline, 3D images Image Quality: Good Patient Consent: Informed, written consent was obtained for the procedure s p @ c 3 Exam Location: A JESSICA was performed in the Processing Associate without complications s p @ c 3 [...] should problems arise Maggy Murphy MD, MPH, [facility], [facility], [facility] Interventional Cardiology Pager Email: [email or web address] NoteUT Cardiology - [facility] Subjective Tito Goncalves is a 78 y.o. year old male patient being seen to discuss LAAO. He presented to [facility] ED in Jun 2023 for fall. [...] In April 2019 he presented to the [facility] with atrial fibrillation with controlled ventricular [...] Take 1 tablet (more content not included)... [facility]06-21-2023 History of Present illness Narrative* Shannen Berkowitzn - 03/16/2023 11:20 AM EDT Ortho Nurse - Established Patient Intake Room#: 5 Date: 03/16/2023 11:20 AM Patient: Tito Goncalves MR#: [id number] : 1945 Age: 78 y.o. 1yr R [...] allergy, and sulfa antibiotics. * Azul Rachel APRN-AWNING HANGER HELPER - 03/16/2023 11:20 AM EDT HPI: Patient [...] have reviewed the findings of the clinical supportability engineer and agree with their assessment. Ortho Nurse - Established Patient Intake Room#: 5 Date: 03/16/2023 11:20 AM Patient: Tito Goncalves MR#: [id number] : 1945 Age: 78 y.o. 1yr R [...] allergy, and sulfa antibiotics. 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 Dec, Obstructive sleep apnea (ICD-10 - G47.33) Auto CPAP 10-15, Facial Mask This patient is aware of the benefits associated with CUBA: With continued use, the patient reduces the risk for VA, CVA, HTN, cardiac dysrhythmias and sudden cardiac [...] and weight loss. Improved control of BS AngioSlide Other 02-15-2023 Evaluation note* Encounter Date Diagnosis Assessment Notes Treatment Notes Treatment Clinical Notes Oct, Cholecystitis (ICD-1 0 - K81.9) AngioSlide Other 02-14-2023 NotePatient Education Material [facility] ENDOSCOPY DEPARTMENT FOLLOW UP CARE ? For [...] physician?s office at: THANK YOU FOR CHOOSING [facility] ENDOSCOPY DEPARTMENT FOR YOUR PROCEDURE! [phone] This information is not intended to replace advice given to you by your health care provider. Make sure you discuss any questions you have with your health care provider. ExitCare? Patient Information ?2016 [email or web address]. Custom Education added 09/2018[facility]02-14-2023 NoteNursing Discharge Summary Entered On: 11/09/2022 8:44 EST Performed On: 11/09/2022 8:43 EST by Sariah Schreiber RN CA Information Discharged to : Home Mode of Discharge : Ambulatory Discharge Transportation : Private vehicle Reg VTE Warfarin at Discharge : No Sariah Schreiber RN - 11/09/2022 8:43 EST Education Instructions given to : Patient TeachBack Methodology : TeachBack, Explanation, Printed Material Barriers to Learning : None evident Educational concerns documented : N/A no barriers noted Sariah Schreiber RN - 11/09/2022 8:43 EST Post-Hospital Education Adult [...] Daughter Sariah Schreiber RN R 11/09/2022 8:43 ESTSM[facility] Evaluation note* Encounter Date Diagnosis [...] use, the patient reduces the risk for VA, CVA, HTN, cardiac dysrhythmias and sudden cardiac [...] INR being monitored, no bleeding complications noted AngioSlide Other 10-13-2022 History of Present illness Narrative* Luis Wang LPN - 07/08/2022 11:20 AM EDT Ortho Nurse - Established Patient Intake Room#: 2 4 month Right TKA, some pain of 1-2 when weed eating, going great Date: 07/08/2022 11:51 AM Patient: Tito Goncalves MR#: [id number] : 1945 Age: 77 y.o. Referring Physician: [...] have reviewed the findings of the clinical supportability engineer and agree with their assessment. Ortho Nurse - Established Patient Intake Room#: 2 4 month Right TKA, some pain of 1-2 when weed eating, going great Date: 07/08/2022 11:51 AM Patient: Tito Goncalves MR#: [id number] : 1945 Age: 77 y.o. Referring Physician: [...] allergy, and sulfa antibiotics. [facility] Hospital Discharge instructions Patient Education 05/03/2022 08:55:03 [...] urethra. Follow these instructions at home: Take klnx-yja-gshozra and prescription medicines only as told by [...] 09/12/2006 Document Revised: 08/07/2019 Document Reviewed: 10/17/2017 [employer] Patient Education 2020 Zaya. Follow Up Care 04/27/2021 11:05:10 With:GAGE UMANZOR, Mc Blackman, URL Address: [facility] [address] , [place] [address]- [phone] When: Unknown Comments:KIM [facility] 07-14-2022 History of Present illness Narrative* Shannen Chahal - 04/08/2022 10:00 AM EDT Ortho Nurse - Established Patient Intake Room#: 5 Date: 04/08/2022 9:50 AM Patient: Tito Goncalves MR#: [id number] : 1945 Age: 77 y.o. 3wk S/P [...] shellfish allergy, and sulfa antibiotics. * Azul Rachel, BOW REPAIRER CUSTOM-AWNING HANGER HELPER - 04/08/2022 10:00 AM EDT HPI: Tito [...] roller. All pertinent portions of the clinical supportability engineer documentation was reviewed and agree. EDYTA Ayala I have reviewed the findings of the clinical supportability engineer and agree with their assessment. EDYTA Ayala Ortho Nurse - Established Patient Intake Room#: 5 Date: 04/08/2022 9:50 AM Patient: Tito Goncalves MR#: [id number] : 1945 Age: 77 y.o. 3wk S/P [...] allergy, and sulfa antibiotics. documented in this [facility]06-21-2022 Miscellaneous Notes* Nursing Notes - Kirsten Crawford [...] Devices: heel offloading device utilized Taken 03/16/2022 030 Positioning/Transfer Devices: pillows Note: IVÁN Hose, Foot [...] Information Source Information Source patient Contact Information Residence Hall Director Name Gini Medrano RN Case Manager's Living [...] that he plans to return home with [facility]. The patient states that his daughter [...] assist with discharge plans. documented [facility] [place] Note* Nursing Notes - Kirsten Crawford RN - 03/16/2022 3:01 PM EDT Discharge instructions gone over with pt and pt's daughter at this time by Regina GAVIN. Both, verbalize understanding and deny any further questions. Hemovac drain removed at this time, tip intact upon removal, pt tolerated well. [facility] History of Present illness Narrative* Blanca Liv, [employer] - 03/16/2022 2:21 PM EDT 03/16/22 1421 [...] Transfer Skill: Sit To Stand, Rehab Eval [place] (Sit-Stand Transfers) (mod I) Physical Assist/Nonphysical Assist: Sit/Stand 1 person assist Weight-Bearing Restrictions: Sit/Stand weight-bearing as tolerated Assistive Device For Transfer: Sit/Stand armed chair Gait Skills, PT Eval Level of [place]: Gait (mod I) Weight-Bearing Restrictions: Gait weight-bearing as tolerated Assistive Device For Transfer: Gait 2 wheeled walker Gait Distance (600ft; patient demonstrates a good quality heel - toe pattern consistently throughtout treatment) Stair Negotiation [place] Level: Stair Negotiation supervision Physical Assist: Stair [...] 100mg 4.00 Total $ 20.60 Birgit Henriquez (Assistant Pressman) reviewed medications with patient regarding indications, directions [...] Sit to Stand, Rehab Eval Level of [place]: Sit/Stand contact guard Physical Assist/Nonphysical Assist: Sit/Stand 1 person assist Weight-Bearing Restrictions: Sit/Stand weight-bearing as tolerated Assistive Device for Transfer: Sit/Stand wheeled walker;armed chair Transfer Skill: Stand to Sit, Rehab Eval Level of [place]: Stand/Sit contact guard Physical Assist/Nonphysical Assist: Stand/Sit [...] Eval) ADL retraining;balance training;transfer training PRIOR LEVEL AM[facility] Activity Inpatient Short Form Putting on/Taking Off Lower Body Clothing 4 - No Assistance Bathing 4 - No Assistance Toileting 4 - No Assistance Putting on/Taking Off Upper Body Clothing 4 - No Assistance Grooming 4 - No Assistance Eating 4 - No Assistance PRIOR LEVEL [facility] Activity Raw Score 24 PRIOR LEVEL AM-PAC Activity Functional Limitation/Modifier 0.00% Prior Functional Impairment in Daily Activity CURRENT [facility] Daily Activity Inpatient Short Form Putting on/Taking Off Lower Body Clothing 3 - A Little Assistance Bathing 3 - A Little Assistance Toileting 3 - A Little Assistance Putting on/Taking Off Upper Body Clothing 3 - A Little Assistance Grooming 3 - A Little Assistance Eating 4 - No Assistance [facility] Raw Score 19 CURRENT [facility] Activity Functional Limitation/Modifier 42.80% Currently Impaired in [...] initiation of treatment Therapist Information License # [id number] In addition to above, ambulated with CGA using FWW. Reclined in chair at end of session with his call light and personal items placed in reach. CLAUDIO Jacobo/[place] 03/16/2022 * Pato Gutierrez - 03/16/2022 11:46 AM EDT Pharmacy to Dose - Warfarin Note PATIENT: Tito Goncalves Room/Bed: [facility] Desired INR range: 2-3 Indication(s): Atrial Fibrillation Medications: No drug interactions were identified based on the patient's current therapy. Current Diet Status: Regular Recent bleeding/bleeding event: None noted Last labs: INR Date Value Ref Range Status 03/16/2022 1.37 (H) 0.85 - 1.10 Final Comment: 2.0-3.0 THERAPEUTIC RANGE 2.5-3.5 MECHANICAL VALVE RANGE Testing performed at [facility], [place], [place] [address] - ALBUMIN Date Value Ref Range Status 03/16/2022 3.3 (L) 3.5 - 5.0 G/dl Final - Plan: An order was placed for Coumadin 7.5 mg today x 1 based on INR = 1.37. A Pharmacist will continue to follow and make dose changes as clinically appropriate. Please contact pharmacy if there are any questions. Signed: Lopez Villafana Phone: [phone] Date/Time: 03/16/2022 11:46 AM * Yashira Valencia, [...] 3/5) LLE WFL Supine to Sit Mobility [place] Level: Supine->Sit stand-by assist Physical Assist: Supine->Sit (1 person) Bed Features/Set-up: Supine->Sit Head of bed elevated Skilled Rationale Verbal cues;Sequencing Sit to Stand Transfer [place] Level: Sit->Stand stand-by assist Physical Assist: Sit->Stand (1 person) Assistive Device: Sit->Stand 2 wheeled walker;gait belt Skilled Rationale Verbal cues;Hand placement;Sequencing Stand to Sit Transfer [place] Level: Stand->Sit stand-by assist Physical Assist: Stand->Sit (1 person) Assistive Device: Stand->Sit 2 wheeled walker;gait belt Skilled Rationale Verbal cues;Hand placement;Sequencing;Controlled descent for sitting Sitting Balance Static Sitting-Level of Assistance Independent Standing Balance Static Standing-Level of Assistance Stand-by assist Dynamic Standing-Level of Assistance Stand-by assist Standing-Balance Support 2 wheeled walker;Gait belt Skilled Rationale Verbal cues;Full extension to upright positioning/posture;Upright gaze/neck extension Gait Assessment [place] Level: Gait contact guard assist Physical Assist: [...] ARTHROPLASTY KNEE TOTAL Left 06/23/2015 CHOLECYSTECTOMY 2012 detention goals, to be achieved at discharge: 1. [...] (248 lb) 02/08/18 117.9 kg (260 lb) [place] body weight: 77.6 kg (171 lb 1.9 [...] plan. Patient plans to return home with [facility]. His daughter will be staying with [...] Warfarin and PT/INR management. Questions answered regarding [facility], patient denies any other questions or needs at this time. Referral information with orders for PT/INR faxed to [facility], spoke with staff who confirm start of care for tomorrow. Follow up appointment scheduled for 04/08/22 @ 10:00 am. * Grupo Morgan RPh,PharmD - 03/15/2022 6:24 PM EDT Pharmacy to Dose - Warfarin Note PATIENT: Tito Goncalves Room/Bed: [facility] Desired INR range: 2-3 Indication(s): Atrial Fibrillation Last labs: INR Date Value Ref Range Status 03/15/2022 1.36 (H) 0.85 - 1.10 Final Comment: 2.0-3.0 THERAPEUTIC RANGE 2.5-3.5 MECHANICAL VALVE RANGE Testing performed at [place], [place] [address] - ALBUMIN Date Value Ref Range Status 02/18/2022 3.8 3.5 - 5.0 G/dl Final - Plan: An order was placed for 5 mg based on current Home Dosage. A Pharmacist will continue to follow and make dose changes as clinically appropriate. Please contact pharmacy if there are any questions. Signed: Grupo Morgan RPh,PharmD, Pharmacist Phone: [phone] Date/Time: 03/15/2022 6:24 PM * Samantha Miner [...] A And B RE: ekg Received: Today Iftikhar Yip, DO Caren Perez RN Cc: Archana Urena RN That is fine. Let me know if thehey find anything Previous Messages ----- Message ----- From: Caren Perez RN Sent: 02/19/2022 8:03 AM EDT To: Archana Urena RN, Iftikhar Yip, Subject: ekg Pt is getting pcp clearance, Please review EKG and advise. Thanks! Let us know If you require anything further documented in this encounterAccess Hospital [place]06-[facility]-2022 Note* Nursing Notes - Dian Roberts RN [...] anxious to head home and settle in. [facility] Hospital Discharge instructions* Discharge Instructions* Kirsten Crawford [...] days or until therapeutic with results to [facility]. , Contact Office ([phone]) if: > Total Knee ROM < 90 [...] sent through Care Everywhere. * docusate (oral/rectal) (Georgian) * oxycodone (Georgian) documented in this [facility] Note* Plan of Care - Regina Rios [...] discharge/transition of care. Outcome: Adequate for Discharge [facility]-2022 Note* Nursing Notes - Kirsten Crawford RN - 03/16/2022 11:39 AM EDT Assessment unchanged from previous by this nurse unless otherwise noted in flowsheet [facility] Hospital course Narrative* Domenico Ferguson MD - [...] insulin restless leg. Kidney stones, admitted to [facility] for elective rig ht total knee arthroplasty [...] as: COUMADIN STOP taking these medications Glucosamine-Chondroitin 9138-5472 MG/30ML LIQD Follow-up: No follow-up provider specified. Upcoming Appointments (up to five)-Some appointments for Medical Center outpatient clinics or diagnostic testing locations are not displayed below Provider Department Dept Phone 04/08/2022 10:00 AM [facility] [phone] Total coordination of discharge care taking greater that 35 minutes documented in this [facility] Note* Plan of Care - Birgit Thakur [...] Devices: pillows Note: IVÁN Ramirez, Foot pumps [facility] [employer] [id number] Note* Nursing Notes - Birgit Thakur RN - 03/16/2022 3:09 AM EDT Assessment remains unchanged unless otherwise noted in flow sheet. Pt denies pain. Neuro/pulses unchanged. New bag of NS hung at this time. Vitals WDL. Pt denies any needs and call light is in reach. [facility] [employer] [id number] Note* Nursing Notes - Birgit Thakur RN - 03/15/2022 11:59 PM EDT Assessment remains unchanged unless otherwise noted in flow sheet. Pt denies any pain. Neuro/pulsesunchanged. NS infusing @ 100ml/hr and Ancef administered. Pt denies any needs and call light is in reach. [facility] Note* Nursing Notes - Birgit Thakur RN - 03/15/2022 8:06 PM EDT RT called at this time due to O2 change from 1.5 to 1L. Pt also has home CPAP/BIPAP device. RT [employer]. [facility]-20-2022 Note* Nursing Notes - Araseli Ron RN - 03/15/2022 5:53 PM EDT Patient tolerating clear liquids at this time, diet advanced per orders. [facility] Consult note* Domenico Ferguson MD - 03/15/2022 4:10 PM EDT History and Physical Examination 03/15/22 4:10 PM Chief Complaint: Right total knee arthroplasty History of Present Illness: Patient is a 77 y.o. male presents for [facility] for elective right total knee arthroplastyDr. Daryl [...] mg by mouth daily. Historical Provider Glucosamine-Chondroitin 2262-1000 MG/30ML Liquid Take by mouth. Historical Provider [...] 81 mg by mouth daily. 03/04/2022 Glucosamine-Chondroitin 0109-1658 MG/30ML Liquid Take by mouth. Multiple Vitamins-Minerals [...] OT, ST and SW. Domenico Ferguson MD [facility]-20[facility] Consult note* Domenico Ferguson MD - 03/15/2022 4:10 PM EDT History and Physical Examination 03/15/22 4:10 PM Chief Complaint: Right total knee arthroplasty History of Present Illness: Patient is a 77 y.o. male presents for [facility] for elective right total knee arthroplastyDr. Foster [...] mg by mouth daily. Historical Provider Glucosamine-Chondroitin 9924-6238 MG/30ML Liquid Take by mouth. Historical Provider [...] every evening at 6 PM. 03/14/2022 at 2115 aspirin EC [address] Take 81 mg by mouth daily. 03/04/2022 Glucosamine-Chondroitin 5925-6166 MG/30ML Liquid Take by mouth. Multiple Vitamins-Minerals [...] SW. Domenico Ferguson MD documented in this encounterAccess Hospital [facility]06-20-2022 Note* Nursing Notes - Araseli Ron RN - 03/15/2022 2:26 PM EDT Patient to OR at this time. [facility] Note* Nursing Notes - Araseli Ron RN - 03/15/2022 11:57 AM EDT Patient assessment unchanged from previous. Patient ambulated to bathroom and voided. Patient denies any needs at this time. Call light in reach. [facility]-26-20[facility] Note* Nursing Notes - Gini Medrano RN - 02/18/2022 1:25 PM EDT 02/18/22 1324 Information Source Information Source patient Contact Information Residence Hall Director Name Gini Medrano RN Case Manager's Living [...] that he plans to return home with [facility]. The patient states that his daughter [...] to follow and assist with discharge plans. [facility]04-[facility] History of Present illness Narrative* Luis Wang LPN - 2022 1:10 PM EDT Ortho Nurse - Established Patient Intake Room#: 1 Right knee pain of 9, no interventions, falls, or injuries, came in today with left knee pain, left knee revision 2016 Dr Bedoya Date: 2022 1:06 PM Patient: Tito Goncalves MR#: [id number] : 1945 Age: 77 y.o. Referring Physician: [...] a right total knee arthroplasty for optimal rn long term care management. PHYSICAL EXAM: This is an alert, [...] joint space, subchondral sclerosis, osteophyte formation, and jvbg-nh-yrcc contact with posterior loosebodies. He has a [...] of limb, and ultimately loss of life. detention expectations, risks and general implant surv ivorship were also discussed. Despite these risks, the patient would like to proceed with surgical planning. Today, we will initiate the pre-surgical process including nasal MRSA screening, scheduling an appointment for [facility] [place] and the potential surgical date, and reviewing [...] Swelling Sulfa Antibiotics Swelling documented in this encounterAccess Hospital [place]02-09-2022 Evaluation note* Encounter Date Diagnosis Assessment Notes Treatment Notes Treatment Clinical Notes Oct, Choledocholithiasis (ICD-10 - K80.50) Oct, Pancreatic cyst (ICD -10 - K86.2) AngioSlide Other Evaluation + Plan note No data available for this section [facility] [employer] evaluation note* Diagnosis Right knee pain, unspecified chronicity- Primary Pain in prosthetic joint, sequela documented in this encounter [facility]* Diagnosis Preop testing- Primary Preoperative examination, [...] Hyposmolality and/or hyponatremia documented [facility] [employer] GroupAnderson [employer] Other Evaluation note* Diagnosis Hx of total knee arthroplasty, right- Primary documented in this encounter [facility]* Diagnosis Hx of total knee arthroplasty, right- Primary [facility] this [facility] noteN/ADept. of Dermatology Evaluation note* Diagnosis Hx of total knee arthroplasty, right- Primary documented in this encounter [facility]* Diagnosis 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- Primary Age-related nuclear cataract of both eyes Dry eyes Unspecified tear film insufficiency [facility] Diagnosis Onset Date Resolution Status Atrial fibrillation acute Chronic kidney disease acute GERD (gastroesophageal reflux disease) acute Hemopericardium acute Hypercholesterolemia acute Hypertension acute CUBA (obstructive sleep apnea) acute [facility] Work Phone: Evaluation note* Diagnosis Onset Date Resolution Status Atrial fibrillation acute Chronic kidney disease acute Hemopericardium acute Hypertension acute Obesity acute CUBA (obstructive sleep apnea) acute Cellulitis of right upper extremity noneactive [facility] Work Phone: Evaluation note* Diagnosis Onset Date Resolution Status Atrial fibrillation acute Chronic kidney disease acute Hemopericardium acute Hypertension acute Obesity acute CUBA (obstructive sleep apnea) acute Cellulitis of right upper extremity noneactive Atrial fibrillation acute Chronic kidney disease acute Hypertension acute Obesity acute CUBA (obstructive sleep apnea) acute Type 2 diabetes mellitus with hyperglycemia acute [facility] Work Phone: Evaluation note* Diagnosis Onset Date [...] hyperglycemia acute [facility] Work Phone: Evaluation note* Diagnosis Onset Date Resolution Status Atrial fibrillation acute Chronic kidney disease acute Hypertension acute Obesity acute CUBA (obstructive sleep apnea) acute Type 2 diabetes mellitus with hyperglycemia acute Anemia acute Atrial fibrillation acute Chest pain acute Chronic kidney disease acute Hypertension acute CUBA (obstructive sleep apnea) acute Type 2 diabetes mellitus with hyperglycemia acute Hypertension acute Type 2 diabetes mellitus with hyperglycemia acute COVID noneactive [facility] Work Phone: Evaluation note* Diagnosis Onset Date Resolution Status Anemia acute Atrial fibrillation acute Chest pain acute Chronic kidney disease acute Hypertension acute CUBA (obstructive sleep apnea) acute Type 2 diabetes mellitus with hyperglycemia acute Hypertension acute Type 2 diabetes mellitus with hyperglycemia acute COVID noneactive Abrasion of ear canal acute [facility] Work Phone: History general Narrative - Reported* Type Description Date Medical History hyperlipidemia Medical History GERD Medical History HTN Medical History a.fib Medical History recurrent choledocholithiasis Surgical History LEFT KNEE Surgical History CHOLECYSTECTOMY 2012 Hospitalization History see above AngioSlide Other History general Narrative - Reported* Type [...] stone removal 10/2022 Hospitalization History see above AngioSlide Other History general Narrative - Reported* Type [...] stone removal 10/2022 Hospitalization History see above AngioSlide Other History general Narrative - Reported* Type [...] History Colonoscopy 2020 Hospitalization History see above AngioSlide Other Hospital Discharge instructions Additional Instructions 1. Sleep on 2 pillows 2. You may shower late tomorrow afternoon, keep wounds dry and clean 3. Small amount of Vaseline to sutures twice daily 4. Tylenol or Motrin for discomfort 5. See Dr. Freitas in [facility] Work Phone: Progress note No data available for this section [facility] reason for referral (narrative)* Name Reason for referral NA NA Dept. of Dermatology Reason for visit Narrative* Auth/Cert Specialty Diagnoses / Procedures Referred By Bret t Referred To Contact Diagnoses Osteoarthritis of right knee, unspecified osteoarthritis type Osteoarthritis of right knee, unspecified osteoarthritis type [M17.11] Procedures SC TOTAL KNEE ARTHROPLASTY ARTHROPLASTY KNEE TOTAL Pastor Bedoya MD [address] [place] [address] Referral ID Status Reason Start Date Expiration Date Visits Re quested Visits Authorized [id number] 02/01/2022 1 1 [facility] Summary Purpose Family History No Family History [...] XR KNEE LEFT 3 VIEWS Azul Rachel, BOW REPAIRER CUSTOM-AWNING HANGER HELPER [address] [place] [address] Specialty Diagnoses / Procedures Referred By Contac t Referred To Contact Diagnoses Pain in prosthetic joint, sequela Procedures XR KNEE LEFT 3 VIEWS Pastor Bedoya MD [address] [place] [address] Referral ID Status Reason Start Date Expiration Date V isits Requested Visits Authorized [id number] New Request 2022 02/15/2023 1 1 Specialty Diagnoses / Procedures Referred By Contac t Referred To Contact Diagnoses Right knee pain, unspecified chronicity Procedures XR KNEE RIGHT 4+ VIEWS Pastor Bedoya MD [address] [place] [address] Referral ID Status Reason Start Date Expiration Date V isits Requested Visits Authorized [id number] New Request 01/15/2022 02/09/2023 1 1 Specialty Diagnoses / Procedures Referred By Contac t Referred To Contact Social Work Diagnoses Restless leg syndrome Stage 3a chronic kidney disease S/P total knee arthroplasty, right Paroxysmal atrial fibrillation Type 2 diabetes mellitus without complication, without long-term current use of insulin Domenico Ferguson MD [address] [place] [address] Referral ID Status Reason Start Date Expiration Date V isits Requested Visits Authorized [id number] New Request 03/16/2022 04/10/2023 1 1 Specialty Diagnoses / Procedures Referred By Contac t Referred To Contact Diagnoses Acute postoperative pain of right knee Kristofer M [address] [place] [address] Referral ID Status Reason Start Date Expiration Date V isits Requested Visits Authorized [id number] New Request 03/15/2022 04/09/2023 1 1 Scheduling Instructions . Specialty Diagnoses / Procedures Referred By Contac t Referred To Contact Physical Therapy Diagnoses Hx of total knee arthroplasty, right VirginieAzul, BOW REPAIRER CUSTOM-AWNING HANGER HELPER [address] [place] [address] [facility] [address] [place] [address] Referral ID Status Reason Start Date Expiration Date V isits Requested Visits Authorized [id number] New Request 04/08/2022 05/03/2023 1 1 Specialty Diagnoses / Procedures Referred By Contac t Referred To Contact Diagnoses Hx of total knee arthroplasty, right Procedures XR KNEE RIGHT 3 VIEWS Virginie Azul, BOW REPAIRER CUSTOM-AWNING HANGER HELPER [address] [place] [id number] Referral ID Status Reason Start Date Expiration Date V isits Requested Visits Authorized [id number] New Request 03/31/2022 04/25/2023 1 1 Specialty Diagnoses / Procedures Referred By Contac t Referred To Contact Diagnoses Hx of total knee arthroplasty, right Procedures XR KNEE RIGHT 3 VIEWS Pastor Bedoya MD [address] [place] [id number] Referral ID Status Reason Start Date Expiration Date V isits Requested Visits Authorized [id number] New Request 07/02/2022 07/27/2023 1 1 Specialty Diagnoses / Procedures Referred By Contac t Referred To Contact Diagnoses Hx of total knee arthroplasty, right Procedures XR BONE LENGTH STUDY Pastor Bedoya MD [address] [place] [id number] Referral ID Status Reason Start Date Expiration Date V isits Requested Visits Authorized [id number] New Request 07/02/2022 07/27/2023 1 1 Referral ID Status Reason Start Date Expiration Date V isits Requested Visits Authorized [id number] New Request 03/15/2023 04/08/2024 1 1 History [...] have reviewed the findings of the clinical supportability engineer and agree with their assessment. Ortho Nurse Established Patient Intake Room#: 5 Date: 03/20/2020 11:10 AM Patient: Tito Goncalves MR#: [id number] : 1945 Age: 75 y.o. 3 yr [...] 03/20/2020 11:10 AM Patient: Tito Goncalves MR#: [id number] : 1945 Age: 75 y.o. 3 yr [...] 2 diabetes mellitus with hyperglycemia Chief Complaint scalp wound scalp wound 4 month follow up [facility] follow up, chest pain [phone] sinus problems Reason for Visit Atrial fibrillation Chronic kidney disease Hypertension Obesity CUBA (obstructive sleep apnea) Type 2 diabetes mellitus with hyperglycemia Anemia Atrial fibrillation Chest pain Chronic kidney disease Hypertension CUBA (obstructive sleep apnea) Type 2 diabetes mellitus with hyperglycemia Hypertension Type 2 diabetes mellitus with hyperglycemia COVID Chief Complaint [facility] follow up, chest pain [phone] sinus problems Rt ear pain Reason for Visit Anemia Atrial fibrillation Chest pain Chronic kidney disease Hypertension CUBA (obstructive sleep apnea) Type 2 diabetes mellitus with hyperglycemia Hypertension Type 2 diabetes mellitus with hyperglycemia COVID Abrasion of ear canal Additional Source Comments (unrecognized sect ion and content) No Status Records FoundNo Status Records FoundNo Status Records FoundNo Status Records FoundNo Status Records FoundNo Status Records FoundNo Status Records FoundNo Status Records FoundNo Status Records FoundNo Status Records FoundNo Status Records FoundNo Status Records Found INFORMATION SOURCE (unrecogn ized section and content) DATE CREATED AUTHOR 03/21/[address] [facility] DATE CREATED AUTHOR AUTHOR'S ORGANIZ ATION 06/15/2019 [facility] DATE CREATED AUTHOR AUTHOR'S ORGANIZ ATION 03/25/2022 [facility] DATE CREATED AUTHOR AUTHOR'S ORGANIZ ATION 05/04/2022 [facility] DATE CREATED AUTHOR AUTHOR'S ORGANIZ ATION 10/04/2022 [facility] DATE CREATED AUTHOR AUTHOR'S ORGANIZ ATION 02/02/2023 [facility] DATE CREATED AUTHOR AUTHOR'S ORGANIZ ATION 03/05/2023 [facility] DATE CREATED AUTHOR AUTHOR'S ORGANIZ ATION 03/20/2023 [facility] DATE CREATED AUTHOR AUTHOR'S ORGANIZ ATION 07/12/2023 [facility] DATE CREATED AUTHOR AUTHOR'S ORGANIZ ATION 03/06/2024 [facility] DATE CREATED AUTHOR AUTHOR'S ORGANIZ ATION 04/16/2024 [facility] DATE CREATED AUTHOR AUTHOR'S ORGANIZ ATION 06/21/2024 [facility] EP[facility] Reason for Visit (unrecogniz ed section and content) Reason Comments Follow-up Status Reason Specialty Diagnoses / Procedures Referred By Contact Referred To Contact New Request Diagnoses History of revision of total replacement of left knee joint Procedures XR KNEE LEFT 3 VIEWS Azul Rachel, BOW REPAIRER CUSTOM-AWNING HANGER HELPER [address] [place] [address] Reason Comments Pain Specialty Diagnoses / Procedures Referred By Contac t Referred To Contact Diagnoses Pain in prosthetic joint, sequela Procedures XR KNEE LEFT 3 VIEWS Pastor Bedoya MD [address] [place] [address] Referral ID Status Reason Start Date Expiration Date V isits Requested Visits Authorized [id number] New Request 2022 02/15/2023 1 1 Specialty Diagnoses / Procedures Referred By Contac t Referred To Contact Diagnoses Right knee pain, unspecified chronicity Procedures XR KNEE RIGHT 4+ VIEWS Pastor Bedoya MD [address] [place] [phone] Referral ID Status Reason Start Date Expiration Date V isits Requested Visits Authorized [id number] New Request 01/15/2022 02/09/2023 1 1 Specialty Diagnoses / Procedures Referred By Contac t Referred To Contact Diagnoses Hx of total knee arthroplasty, right Procedures XR KNEE RIGHT 3 VIEWS Azul Rachel, BOW REPAIRER CUST[employer]-AWNING HANGER HELPER [address] [place] [phone] Referral ID Status Reason Start Date Expiration Date V isits Requested Visits Authorized [id number] New Request 03/31/2022 04/25/2023 1 1 Reason Comments Post Op Visit Specialty Diagnoses / Procedures Referred By Contac t Referred To Contact Diagnoses Hx of total knee arthroplasty, right Procedures XR KNEE RIGHT 3 VIEWS Pastor Bedoya MD [address] [place] [id number] Referral ID Status Reason Start Date Expiration Date V isits Requested Visits Authorized [id number] New Request 07/02/2022 07/27/2023 1 1 Referral ID Status Reason Start Date Expiration Date V isits Requested Visits Authorized [id number] New Request 03/15/2023 04/08/2024 1 1 Reason Comments Retinal Injection Care Teams (unrecognized sec tion and content) Team Status: Active Member Role Status Dates [...] Star t: April 02, 2024 Team Status: Active Member Role Status Dates Augustine Metz DO Primary Care Provide r, Attending Provider Active Start: April 02, 2024 Team Status: Inactive Member Role Status Dates Augustine Metz DO Primary Care Provide r, Attending Provider Active Start: April 04, 2024 End: April 04, 2024 Team Status: Active Member Role Status Dates Augustine Metz DO Primary Care Provide r, Attending Provider Active Start: April 18, 2024 Team Status: Inactive Member Role Status Dates Augustine Metz DO Primary Care Provide r, Attending Provider Active Start: May 16, 2024 End: May 16, 2024 Team Status: Inactive Member Role Status Dates Augustine Metz DO Primary Care Provider Active Start: June 04, 2024 End: June 04, 2024 Blanca Lay APRN LABORATORY TECHNICAL SPECIALIST-C Attending Provider Active Start: May End: June 04, 2024 Team Status: Inactive Member Role Status Dates Augustine Metz DO Primary Care Provider Active Start: February 16, 2024 End: February 16, 2024 Augustine Freitas DO Attending Provider Active S tart: February 16, 2024 End: February 16, 2024 Team Status: Inactive Member Role Status Dates Augustine Metz DO Primary Care Provider Active Start: February 24, 2024 End: February 24, 2024 Augustine Fretias DO Attending Provider Active S tart: February 24, 2024 End: February 24, 2024 Team Status: Inactive Member Role Status Dates Augustine Metz DO Primary Care Provide r, Attending Provider Active Start: February 27, 2024 End: February 27, 2024 Combination Operator Relationship Specialty Start Date End Date Augustine Metz DO [address] [place] [facility] [place] [address] PCP - General Internal Medicine 01/24/17 Combination Operator Relationship Specialty Start Date End Date Augustine Metz DO [address] [place] [facility] [place] [address] PCP - General Internal Medicine 01/24/17 Combination Operator Relationship Specialty Start Date End Date Augustine Metz, DO [address] [place] [facility] [place] [address] PCP - General Internal Medicine 01/24/17 Combination Operator Relationship Specialty Start Date End Date Augustine Metz DO [address] [facility] [place] [address] PCP - General Internal Medicine 01/24/17 Combination Operator Relationship Specialty Start Date End Date IsaíasAugustine [address] [facility] [place] [phone] PCP - General Internal Medicine 01/24/17 Combination Operator Relationship Specialty Start Date End Date Augustine Metz DO [address] [facility] [place] [address] PCP - General Internal Medicine 01/24/17 Combination Operator Relationship Specialty Start Date End Date Augustine Metz DO [address] [facility] [place] [address] PCP - General Internal Medicine 01/24/17 Combination Operator Relationship Specialty Start Date End Date Augustine Metz DO [address] [facility] [place] [address] PCP - General Internal Medicine 01/24/17 Combination Operator Relationship Specialty Start Date End Date Augustine Metz DO [address] [facility] [place] [phone] PCP - General Internal Medicine 01/24/17 Combination Operator Relationship Specialty Start Date End Date Augustine Metz MD [address] [place] [phone] PCP - General Internal Medicine 06/02/23 Combination Operator Relationship Specialty Start Date End Date Augustine Metz MD [address] [place] [phone] PCP - General Internal Medicine 06/02/23 Team [...] Tue03/15/22 at 2000, Until Discontinued, , Post-op/Post-Proc 210 (Given - Provider: Birgit Thakur RN) 0309 [...] Crawford, RN) 0810 (Given - Provider: Kirsten Crawford [...] to the hypoglycemia management protocol on Ellucid: G-ER-Glevoettejiy Management Protocol insulin regular (HumuLIN R;NovoLIN R) [...] Until Discontinued, Indications: Inpt Stress Ulcer Prophylaxis 1753 (Given - Provider: Araseli Ron, RN) propafenone (RYTHMOL) tablet 150 mg 150 mg, Oral, EVERY 8 HOURS, First dose (after last modification) on Tue03/15/22 at 1800, Until Discontinued, Administer every 8 hours according with patient home schedule if possible 1753 (Given - Provider: Araseli Ron, RN) 0309 (Given - Provider: Birgit Thakur, [...] Keita RN)1956 (Rate/Dose Verify - Provider: Birgit Thakur, ROMAINE)2356 (Rate/Dose Verify - Provider: Birgit Thakur, ROMAINE) 0310 (Rate/Dose Verify - Provider: Birgit Thakur [...] RN)1450 ($$New Bag$$ - Provider: Pankaj Eric APRN-MOTOR ROUTE CARRIER)1606 (Paused - Provider: Chino Puga CRNA - [...] 2 g, Intravenous, Administer over 30 Minutes, PROJECT ADMIN TO PROCEDURE, 1 dose, Starting on Tue03/15/22 at 0849, Until Discontinued, Other, Pre-operative antibiotic, For 15 Minutes, Pre-op/Pre-Proc 1440 (Given - Provider: Lambert Eric, BOW REPAIRER [facility]) dextrose 10% IV solution 250 mL(Linked [...] less than 60 mg/ml. If unresponsive call INTERNETWORKING TECHNICIAN HYDROmorphone (DILAUDID) injection 0.5 mg 0.5 mg, [...] to the hypoglycemia management protocol on Ellucid: E-SK-Uczziomxybqi Management Protocol
And dextrose 10% IV solution [...] less than 60 mg/ml. If unresponsive call INTERNETWORKING TECHNICIAN
And NOTIFY PHYSICIAN, Blood Glucose LESS THAN 70 mg/dl or greater than 400 mg/dl (CANCELED) Routine, CONTINUOUS, Starting on Tue03/15/22 at 1255, Until Specified
Who to Notify: LABORATORY TECHNICAL SPECIALIST/Physician
For all Blood Glucose LESS THAN 70 mg/dl, or greater than 400 mg/dl notify LABORATORY TECHNICAL SPECIALIST/Physician Goals (unrecognized section and content) Goals may [...] BE BASED ON THE PRIMARY CLINICAL RECORDS. [facility]. provides no warranty or guarantee of the accuracy or completeness of information in this document.
[2024-06-27 10:10] LABS: Basophils Percent Auto 0.4 % (0.2-2.0); Eosinophils Absolute Auto 0.1 10^3/uL (0.0-0.7); Hematocrit 38.5 % (42.0-54.0); Hemoglobin 12.5 g/dL (14.0-18.0); Immature Granulocytes Abs Auto 0.02 10^3/uL (0.00-0.03); Immature Granulocytes Pct Auto 0.4 % (0.0-0.5); Lymphocytes Absolute Auto 1.4 10^3/uL (1.2-3.8); Lymphocytes Percent Auto 27.8 % (20.5-60.0); Mean Corpuscular HGB Conc 32.5 g/dL (29.9-35.2); Mean Corpuscular Hemoglobin 28.8 pg (25.9-34.0); Mean Corpuscular Volume 88.7 fL (80.0-94.0); Mean Platelet Volume 11.2 fL (9.5-13.5); Monocytes Absolute Auto 0.4 10^3/uL (0.3-0.8); Monocytes Percent Auto 8.3 % (1.7-12.0); Neutrophils Absolute Auto 3.1 10^3/uL (1.4-6.5); Neutrophils Percent Auto 61.1 % (43.0-75.0); Platelet Count 162 10^3/uL (150-450); Red Blood Count 4.34 10^6/uL (4.70-6.10); Red Cell Distribution Width 16.6 % (11.0-15.0)
[2024-06-27 11:06] LABS: Percent Iron Saturation 21.3 %
[2024-06-28 04:12] LABS: Vitamin B12 640 pg/mL (232-1245)
== END 2024-06-27 09:36 | disposition home or self-care (01) ==
LOC: LAB 09:36
PROVIDERS: PCP Internal Medicine; Visit Provider Internal Medicine
DX: D64.9 Anemia, unspecified (principal)
CPT/HCPCS: 36415; 82607; 82728; 82746; 83540; 83550; 85025

== ENCOUNTER 2024-07-02 07:38 | Outpatient (RCR) | payer MEDICARE, OTHER, SELFPAY ==
[2024-07-02] MEDS: IRON SUCROSE COMPLEX 300 MG in 0.9 % SODIUM CHLORIDE 250 ML 176.667 MG IV (10:23)
[2024-07-02 10:35] VITALS: BP 173/82; PULSE 62; TEMP 36.2; O2SAT 94
--- NOTE | 2024-07-02 11:17 | PC.NURSE ---
1035: Pt. to [facility] amb. for iron infusion. Seated in recliner. VSS. IV initiated, see documentation. Pt. tolerated without c/o. Snack and beverage offered, pt. declines.
--- NOTE | 2024-07-02 11:18 | PC.NURSE ---
1023: IV Venofer initiated at this time. Pt. without c/o or needs. 1050: Tolerating infusion without c/o. Denies needs.
--- NOTE | 2024-07-02 11:35 | PC.NURSE ---
Cont. to tolerate iron infusion without c/o. IV site remains clear.
--- NOTE | 2024-07-02 12:20 | PC.NURSE ---
1203: Infusion completed without s&s of adverse reaction. IV d/c'd, pressure to site. 1221: Pt. without c/o. d/c'd amb. to home.
== END 2024-07-26 23:59 | disposition home or self-care (01) ==
LOC: INF 07:38
PROVIDERS: PCP Internal Medicine; Visit Provider Internal Medicine
DX: E61.1 Iron deficiency (principal)
CPT/HCPCS: 96365; 96366; J1756

== ENCOUNTER 2024-08-14 08:25 | Outpatient (OUT) | payer MEDICARE, OTHER, SELFPAY ==
--- OUTSIDE RECORDS SUMMARY | 2024-08-14 08:51 | XMS_ITS | CCD ---
Author Organization [facility] In[facility] ion [facility] Care Team Providers Care State Fire Marshal Name Role Phone GENE FAJARDO Admitting Unavailable GENE FAJARDO Attending Unavailable AUGUSTINE EMTZ Primary Care Unavailable RYAN CARDENAS Referring Unavailable Augustine Metz Primary Care Provider Augustine Metz DO Primary Care Provider [phone] Augustine Metz DO Primary Care Provider Carmen Kahn Unavailable AUGUSTINE METZ Primary Care Physician [phone] Augustine Metz DO Primary Care Provider [phone] Damari Rojsa Unavailable Unavailable Alyssa, Mago Osman Delmis Referring [...] AUGUSTINE METZ Primary Care Unavailable ISAÍAS, DR BRADSHAW Primary Care Unavailable ISAÍAS, DR BRADSHAW Consulting Unavailable ISAÍAS, DR BRADSHAW Admitting Unavailable ISAÍAS, DR BRADSHAW Attending Unavailable SAMY, DR CARMEN Flynn Consulting Unavailable ISAÍAS, DR BRADSHAW Primary Care Unavailable MISC, DR LYMAN Admitting Unavailable MISC, DR LYMAN Attending Unavailable ISAÍAS, DR BRADSHAW Primary Care Unavailable GAGE ., DR CARTWRIGHT Admitting Unavailable ALMONTE ., DR CARTWRIGHT Consulting Unavailable ALMONTE ., DR CARTWRIGHT Attending Unavailable ZIEBER, DR SANTOS Blackman Consulting Unavailable MISC, DR LYMAN Consulting Unavailable MISC, DR LYMAN Attending Unavailable BALL, DR BRADSHAW Primary Care Unavailable MISC, DR LYMAN Admitting Unavailable ZIEBER, DR SANTOS Blackman Consulting Unavailable BALL, DR BRADSHAW Primary Care Unavailable BALL, DR BRADSHAW Consulting Unavailable BALL, DR BRADSHAW Admitting Unavailable BALL, DR BRADSHAW Attending Unavailable FAWWAD, CARTER H Attending Unavailable FAWWAD, CARTER H Admitting Unavailable BALL, DR BRADSHAW Primary Care Unavailable BALL, DR BRADSHAW Primary Care Unavailable REINECK, DR JUANJO Nuñez Consulting Unavailabl e REINMADDY, DR JUANJO Nuñez Attending Unavailabl e REINECK, DR JUANJO Nuñez Admitting Unavailabl e JEFFRY, TAVO Consulting Unavailable AHDOOT, LINDA Consulting Unavailable OWOYELE, TOSHIA Consulting Unavailable RASTEGAR, SALINA Consulting Unavailable FAWWAD, CARTER H Admitting Unavailable BALL, DR BRADSHAW Primary Care Unavailable FAWWAD, CARTER H Attending Unavailable FAWWAD, CARTER H Attending Unavailable FAWWAD, CARTER H Admitting Unavailable BALL, DR BRADSHAW Primary Care Unavailable FAWWAD, CARTER H Attending Unavailable FAWWAD, CARTER H Admitting Unavailable BALL, DR BRADSHAW Primary Care Unavailable FAWWAD, CARTER H Attending Unavailable FAWWAD, CARTER H Admitting Unavailable BALL, DR BRADSHAW Primary Care Unavailable FAWWAD, CARTER H Attending Unavailable FAWWAD, CARTER H Admitting Unavailable BALL, DR BRADSHAW Primary Care Unavailable FAWWAD, CARTER H Attending Unavailable FAWWAD, CARTER H Admitting Unavailable BALL, DR BRADSHAW Primary Care Unavailable FAWWAD, CARTER H Admitting Unavailable BALL, DR BRADSHAW Primary Care Unavailable FAWWAD, CARTER H Attending Unavailable FAWWAD, CARTER H Attending Unavailable FAWWAD, CARTER H Admitting Unavailable BALL, DR BRADSHAW Primary Care Unavailable BALL, DR BRADSHAW Primary Care Unavailable BALL, DR BRADSHAW Consulting Unavailable BALL, DR BRADSHAW Admitting Unavailable BALL, DR BRADSHAW Attending Unavailable ZIEBER, DR SANTOS Blackman Consulting Unavailable FAWWAD, CARTER H Attending Unavailable FAWWAD, CARTER H Admitting Unavailable BALL, DR BRADSHAW Primary Care Unavailable BALL, DR BRADSHAW Attending Unavailable BALL, DR BRADSHAW Primary Care Unavailable BALL, DR BRADSHAW Admitting Unavailable BALL, DR BRADSHAW Consulting Unavailable BALL, DR BRADSHAW Referring Unavailable BALL, DR BRADSHAW Consulting Unavailable BALL, DR BRADSHAW Admitting Unavailable BALL, DR BRADSHAW Primary Care Unavailable BALL, DR BRADSHAW Attending Unavailable FAWSHAIKH Tiburcio ROWE Attending Unavailable FASHAIKH Tiburcio CHILDRESS Admitting Unavailable BALL, DR BRADSHAW Primary Care Unavailable Ball DOAugustine Primary Care Provider [phone] AZUL RACHEL Attending Unavailable VIRGINIE, AZUL Referring Unavailable BALL, AUGUSTINE Primary Care Unavailable VIRGINIE, AZUL Attending Unavailable VIRGINIE, AZUL Referring Unavailable BALL, AUGUSTINE Primary Care Unavailable VIRGINIE, AZUL Attending Unavailable VIRGINIE, AZUL Referring Unavailable BALL, AUGUSTINE Primary Care Unavailable SELF, SELF Referring Unavailable BALL, AUGUSTINE Primary Care Unavailable ELKE, PASTOR Attending Unavailable PASTOR BEDOYA Referring Unavailable BALL, AUGUSTINE Primary Care Unavailable ELKE, PASTOR Attending Unavailable VIRGINIE, AZUL Attending Unavailable SELF, SELF Referring Unavailable BALL, AUGUSTINE Primary Care Unavailable Ball, Augustine Primary Care Unavailable Nohemi, Colin S Admitting Unavailab james Song, Colin Duncan Attending Unavailab Augustine Ruby MD Primary Care Provider DO Augustine Metz Primary Care Provider [phone] MurcekDO Bradshaw Attending Provider Augustine Freitas Attending Unavailable MurAugustine vincent Admitting Unavailable Isaías, Augustine Primary Care Unavailable Ball, Augustine Primary Care Unavailable MurAugustine vincent Attending Unavailable MurAugustine vincent Admitting Unavailable JOSE R DODD Attending Unavailable JOSE R DODD Attending Unavailable JOSE R DODD Attending Unavailable OSMAN SHAH Attending Unavailable CHRISTIN BOLTON Attending Unavailable MURANA, AUGUSTINE Kelsey Attending Unavailable CHRISTIN BOLTON Referring Unavailable JOSE R DODD Attending Unavailable JOSE R DODD Attending Unavailable MURCEKAUGUSTINE W Attending Unavailable MURCEK, AUGUSTINE W Attending Unavailable JOSE R DODD Attending Unavailable NIDHIKAUGUSTINE Attending Unavailable CHRISTIN BOLTON Referring Unavailable JOSE R DODD Attending Unavailable OSMAN SHAH Attending Unavailable SIMRAN MUNIZ Attending Unavailable Augustine Metz MD Primary Care Provider Christin Bolton MD Unavailable [phone] MurAugustine vincent DO Unavailable RAJESH, LIONEL Referring Unavailable RAJESH, LIONEL Referring Unavailable RAJESH, LIONEL Referring Unavailable BRIGITTE PERRY NORI Referring Unavailab le MOUKARBEL, OLIVER Referring Unavailable MOUKARBEL, OLIVER Referring Unavailable MOUKARBEL, OLIVER Referring Unavailable MOUKARBEL, OLIVER Referring Unavailable MOUKARBEL, OLIVER Admitting Unavailable MOUKARBEL, OLIVER Attending Unavailable MOUKARBEL, OLIVER Referring Unavailable MOUKARBEL, OLIVER Admitting Unavailable HORANIDORI Attending Unavailable YAMILET, MADISON Referring Unavailable ELTAHAWY, EHAB Attending Unavailable RAJESH, LIONEL Referring Unavailable ELTAHAWY, EHAB Attending Unavailable YAMILET, MADISON Attending Unavailable MOUKARBEL, OLIVER Attending Unavailable ELTAHAWY, EHAB Attending Unavailable YAMILET, MADISON Referring Unavailable MOUKARBEL, OLIVER Attending Unavailable RAJESH, LIONEL Referring Unavailable Allergies Allergy Classification Reported Allergen(s) Allergy Type Date of Onset Reaction(s) Facility Iodine (and Iodine containting drugs) (1 source) Iodine Drug Allergy 04-04-20 24 Unknown Reaction [facility] Penicillins (antibiotic) (1 source) Penicillins Drug Allergy 04-04-20 24 [facility] Shellfish (2 sources) Shellfish Food Allergy 04-04-20 24 Unknown Reaction [facility] Sulfonamides (antibiotic) (1 source) Sulfonamides (Antibiotic) Drug Allergy 04-04-20 24 Swelling [facility] (19 sources) Iodine; Translations: [iodine] Drug Allergy 08-31-20 09 Unknown, Unknown Reaction [facility] (10 sources) Penicillins; Translations: [PENICILLINS] Drug allergy (disorder) 08-01-19 63 Unknown Reaction, Hives [facility] (10 sources) Sulfonamides (Antibiotic); Translations: [SULFA (SULFONAMIDE ANTIBIOTICS)] Drug allergy (disorder) 08-31-19 93 Swelling [facility] (2 sources) Shellfish Containing Products; Translations: [Shellfish Containing Products] Food allergy (disorder) 08-31-20 09 [facility] (19 sources) Iodine; Translations: [iodine] Drug Allergy 08-31-20 09 Swelling, Unknown (qualifier value), Anaphylaxis [facility] (20 sources) Penicillin G Drug Allergy 10-20-19 [address] [facility] (17 sources) Shellfish Propensity to adverse reactions to drug 08-31-20 09 Swelling, Other [facility] (12 sources) Sulfonamides (Antibiotic) Propensity to adverse reactions to drug 10-20-[address] [facility] (11 sources) Penicillins (Antibiotic) Drug allergy Unknown [employer] Other (18 sources) Shrimp product Propensity to adverse reactions 01-31-20 24 Unknown, Unknown Reaction [facility] (11 sources) Sulfonamides (Antibiotic) Drug allergy Unknown [facility] [employer] Other (5 sources) Penicillin; Translations: [penicillin] Drug Allergy Unknown (qualifier value) [facility] (1 source) Sulfonamides (Antibiotic); Translations: [sulfa drugs] Drug allergy Unknown (qualifier value) [facility] (1 source) No Alert Propensity to adverse reactions to drug 09-14-20 22 [facility] (1 source) Penicillin Drug Allergy 10-01-19 23 [facility] (1 source) Propensity to adverse reactions to drug 10-01-19 23 [facility] (1 source) Iodine Drug Allergy 08-30-20 13 [facility] (1 source) Shellfish Drug allergy (disorder) 08-30-20 13 [facility] (4 sources) sulfADIAZINE Drug Allergy Unknown [employer] Other (9 sources) Substance with sulfonamide structure and antibacterial mechanism of action (substance) Drug allergy 08-31-19 93 Rash, Swelling [facility] [employer] Other (1 source) sulfa drug; Translations: [sulfa drug] Propensity to adverse reactions to drug (disorder) [facility] Repository (5 sources) Penicillin V Drug Allergy 01-23-20 23 [facility] (5 sources) Penicillins Drug Allergy 08-01-19 63 [facility] (5 sources) Other Allergy to substance 06-30-20 23 Other [facility] (5 sources) Shellfish-Derived Products Drug Allergy 10-20-19 13 Swelling [facility] (8 sources) Shellfish; Translations: [shellfish derived] Allergy to substance 01-31-20 24 Unknown Reaction [facility] (1 source) Iodine Drug Allergy 02-27-20 [facility] (1 source) Penicillins Drug allergy (disorder) 02-27-20 24 [facility] (1 source) Shrimp product Drug allergy (disorder) 02-27-20 24 [facility] (1 source) Sulfonamides (Antibiotic) Drug allergy (disorder) 02-27-20 [facility] Rep[facility] Medications Current Medications Medication Drug Class(es) Dates Sig (Normalized) Sig (Original) Accu-Chek Prachi Plus - (9 sources) Accu-Chek Prachi Plus - USE TO TEST BLOOD SUGAR DAILY for 50 Active acetaminophen 500 mg oral ta blet (20 sources) Start: 07-05-2023 acetaminophen (Tylenol) 500 MG tablet Take by mouth every 6 (six) hours if needed 07/05/2023 Active Start: 03-15-2022 take 2 tablets by mo uth every four hours as needed acetaminophen 325 [...] Status: Ordered take 2 tablets by mo uth every eight hours Tylenol 8 Hour 650 MG 2 tablets as needed Orally every 8 hrs Active acetaminophen 325 mg / HYDROcodone bitartrate 7.5 mg oral tablet (3 sources) Opioid Agonist HYDROcodone-acet aminophen (Bozman) 7.5-325 MG tablet Active amiodarone hydrochloride 200 mg oral tablet (11 sources) Antiarrhythmic Start : 01-30 End: 08-07 take 200 mg by mouth once daily Amiodarone Active 200 MG PO Daily January 31, 2024 12:00am amLODIPine 5 mg oral tablet (20 sources) Dihydropyridine Calcium Channel Dominic Start : 02-27 End: 07-09 take 5 mg by mouth once daily Amlodipine Active 5 MG PO Daily July 09, 2024 9:33am Start: 03-16-2022 End: 03-16-2022 amLODIPine (NORVASC) tablet [...] Aggregation Inhibitor, Nonsteroidal Anti-inflammatory Drug Start: 10-01-2022 492181 Medication aspirin aspirin 300 mg 10/01/2022 Active [...] 1 tablet by mouth in the morning. Active atorvastatin 10 mg oral tablet (20 sources) HMG-CoA Reductase Inhibitor Start: 06-15-2012 End: 03-16-2022 take 10 mg by mouth once daily at bedtime Atorvastatin Active 10 MG PO Daily at bedtime November 10, 2021 1:00am benazepril hydrochloride 20 mg oral tablet (20 sources) Angiotensin Converting Enzyme Inhibitor Start: 06-24-2024 take 1 tablet by mouth once daily Benazepril Active 0 .ROUTE .COMPLEX 90 June 24, 2024 5:56pm TAKE 1 TABLET BY MOUTH DAILY Start: 01-31-2024 End: 06-24-2024 take 20 mg by mouth once daily Benazepril Discontinued 20 MG PO Daily January 31, 2024 12:00am June 24, 2024 5:56pm Start: 02-03-2018 take 1 tablet by wendy th in the morning benazepril (Lotensin) 20 MG tablet Take 20 mg by mouth in the morning. 0 07/09/2022 Active carvedilol 6.25 mg oral tablet (20 sources) alpha-Adrenergic Dominic, beta-Adrenergic Dominic Start: 04-04-2024 carvedilol (Core g) 6.25 MG tablet 06/10/2024 Active Start: 01-31-2024 End: 04-04-2024 take 12.5 mg [...] mg oral tablet (20 sources) Benzodiazepine Start: 06-27-2024 clonazePAM (KlonoPIN) 1 MG tablet Indications: PLMD (periodic limb movement disorder) 1-2 tablet at bedtime 60 tablet 2 06/27/2024 Active Start: 06-27-2024 clonazePAM (Kl onoPIN) 1 MG tablet Indications: PLMD (periodic limb movement disorder) 1-2 tablet at bedtime 60 tablet 2 06/27/2024 Active Start: 03-15-2022 End: 03-16-2022 take 1 [...] or mental status after anesthesia Start: 11-10-2021 End: 06-27-2024 take 1 mg by mouth once daily Clonazepam Active 1 MG P O Daily November 10, 2021 1:00am Start: 09-24-2019 take 1 tablet by wendy th three times daily clonazepam 1 mg Tab mg tab(s), Oral, TID, Refills(s) 0 Start Date: 09/24/19 Status: Ordered Start: 01-16-2018 End: 2022 clonazePAM 0.5 MG Tab tablet 1 mg. 0 01/16/2018 2022 Discontinued (Medication Reconciliation (suppress cancel msg)) clopidogrel 75 mg oral tablet (11 sources) [id number] Platelet Inhibitor Start: 01-31-2024 take [...] times daily. 60 capsule 0 03/15/2022 Active gabapentin 300 mg oral capsule (3 sources) Anti-epileptic Agent Start: 01-22-2023 gabapentin (Neurontin) 300 MG capsule 01/22/2023 Active glimepiride 1 mg oral tablet (1 source) Sulfonylurea Start: 09-24-2019 take 1 tablet by mouth once daily glimepiride 1 mg Tab mg tab(s), Oral, Daily, Refills(s) 0 Start Date: 09/24/19 Status: Ordered Glucosamine-Chondr oit-Vit C-Mn (Glucosamine-Chond roitin) capsule (2 sources) Glucosamine-Jordan dr oit-Vit C-Mn (Glucosamine-Chond roitin) capsule Take by mouth. 0 Active levETIRAcetam 500 mg oral tablet (3 sources) Start: 01-22-2023 levETIRAcetam (Keppra) 500 MG tablet 01/22/2023 Active meloxicam 15 mg oral tablet (3 sources) Nonsteroidal Anti-inflammatory Drug meloxicam (Mobic) 15 MG tablet Active metFORMIN hydrochloride 850 mg / pioglitazone 15 mg oral tablet (3 sources) Biguanide, Peroxisome Proliferator Receptor alpha Agonist, Peroxisome Proliferator Receptor gamma Agonist, Thiazolidinedione take 15-850 mg by mouth in the morning pioglitazone-metFO RMIN (ACTOPlus Met) 15-850 MG tablet Take 1 tablet by mouth in the morning. Active Multi Vitamin+ (1 source) Start: 09-24-2019 Multi Vitamin+ Refill(s) 0 Start Date: 09/24/19 Status: Ordered Multiple Vitamin (Multi Vitamin) tablet (3 sources) Multiple Vitamin (Multi Vitamin) tablet Take by mouth Active Multiple Vitamins-Minerals (PRESERVISION AREDS PO) (10 sources) Multiple Vitamins-Minerals (PRESERVISION AREDS PO) Take by mouth. 0 Active Multivitamin-Rittman als-Lutein (A Thru Z High Potency) tablet (8 sources) Start: 11-10-2021 take 1 tablet by mouth twice daily Multivitamin-Client Service Coordinator als-Lutein (A Thru Z High Potency) tablet Active 1 TAB PO Twice daily November 10, 2021 1:00am Start: 11-10-2021 take 1 tablet by wendy th once daily Qqujdqcycpal-Jmtrklpb-Kjwpom (A Thru Z H igh Potency) tablet Active 1 TAB PO Daily November 10, 2021 1:00am mupirocin 0.02 mg/mg topical ointment (5 sources) RNA Synthetase Inhibitor Antibacterial Start: 06-04-2024 mupirocin (Bactroban ) 2 % ointment 06/04/2024 Active Start: 06-04-2024 Mupirocin Acti ve 1 APPLIC TOPICAL Twice daily June 04, 2024 12:00am omeprazole 20 mg delayed release oral capsule (20 sources) Proton Pump Inhibitor Start: 12-27-2017 take 20 mg by mouth once daily Omeprazole Active 20 MG PO Daily November 10, 2021 1:00am primidone 250 mg oral tablet (1 source) Anti-epileptic Agent Start: 08-21-2022 [id number] Medication omeprazole 20 mg capsule,delayed release omeprazole 20 mg capsule,delayed release 20 mg 08/21/2022 Active (Outside) therapeutic multivitamin-minera ls tablet (7 sources) Start: 03-15-2022 take 1 tablet by mouth at bedtime therapeutic multivitamin-hydraulic miner blasting als tablet Take 1 tablet by mouth [...] Sig (Original) benzonatate 200 mg oral capsule (6 sources) Non-narcotic Antitussive Start: 05-16-2024 End: 06-04-2024 take 200 mg by mouth three times daily Benzonatate Discontinued 200 MG PO Three times daily 30 May 16, 2024 12:00am June 04, 2024 11:19am Start: 11-28-2023 take 1 capsule by [facility] three times daily as needed benzonatate (Tessalon) 100 MG capsule Take 100 mg by mouth 3 (three) times a day as needed 11/28/2023 Active bisacodyl 10 mg rectal suppository (1 source) Stimulant Laxative Start: 03-15-2022 End: 03-16-2022 bisacodyl (DULCOLAX) suppository 10 mg ceFAZolin 2000 mg injection (1 source) Cephalosporin Antibacterial Start: 03-15-2022 End: 03-16-2022 take 2 g intravenously every eight hours ceFAZolin (ANCEF) 2 g in dextrose 100 mL premix IVPB dexamethasone phosphate 10 mg/ml injectable solution (1 source) Corticosteroid Start: 03-16-2022 End: 03-16-2022 dexAMETHasone (DECADRON) injection 10 mg 24 hr dilTIAZem hydrochloride 120 mg extended release oral capsule (3 sources) Calcium Channel Dominic Start: 12-27-2017 End: 2022 diltiazem 120 MG Cap SR 24HR capsule XL docusate sodium 50 mg / sennosides, half-way 8.6 mg oral tablet (1 source) Start: 03-15-2022 End: 03-16-2022 senna-docusate (SENOKOT-S) 8.6-50 MG per tablet 2 tablet doxycycline hyclate 100 mg oral capsule (8 sources) Tetracycline-cla ss Drug Start: 01-31-2024 End: 02-16-2024 take 100 mg by mouth twice daily Doxycycline Hyclate Discontinued 100 MG PO Twice daily 08 04January 31, 2024 12:00am February 16, 2024 4:13pm ferrous sulfate 325 mg oral tablet (5 sources) Start: 03-16-2022 End: 10-13-2022 take 325 mg by mouth once daily 325 mg, Oral, DAILY, First dose on Tue03/16/22 at 0900, Until Discontinued hydroCHLOROthiazide 12.5 mg oral tablet (3 sources) Thiazide Diuretic Start: 02-03-2018 End: 2022 hydroCHLOROthiazide 12.5 MG tablet 1 ml HYDROmorphone hydrochloride 1 mg/ml cartridge (1 source) Opioid Agonist Start: 03-15-2022 End: 03-16-2022 take 0.5 mg intravenously every four hours as needed HYDROmorphone (DILAUDID) injection 0.5 mg insulin regular (HumuLIN R;NovoLIN R) injection (1 source) Start: 03-15-2022 End: 03-16-2022 insulin regular (HumuLIN R;NovoLIN R) injection lisinopril 5 mg oral tablet (1 source) Angiotensin Converting Enzyme Inhibitor Start: 03-16-2022 End: 03-16-2022 take 10 mg by mouth once daily 10 mg, Oral, DAILY, First dose on Tue03/16/22 at 0900, Until Discontinued Hold if blood pressure less than 1 20 mmHg metFORMIN hydrochloride 500 mg oral tablet (3 sources) Biguanide End: 2022 take 1 tablet by mouth twice daily at mealtime metformin 500 MG Tab tablet Take 500 mg by mouth 2 times daily with meals. 0 2022 Discontinued (Medication Reconciliation (suppress cancel msg)) metroNIDAZOLE 500 mg oral tablet (9 sources) Nitroimidazole Antimicrobial Start: 11-10-2022 take 1 tablet by mouth every eight hours metroNIDAZOLE 500 MG 1 tablet Orally Three times a day for 7 days Oct, Not-Taking/PRN Molnupiravir (5 sources) Start: 05-16-2024 End: 06-04-2024 take 800 mg by mouth every twelve [...] 800 MG PO Every 12 hours 40 5 May 16, 2024 12:00am Multiple Vitamins-Minerals (MULTIVITAMIN [...] 31, 2024 3:31pm 7.5mg on Sat. 5mg L-H-V-W-- Start: 01-02-2018 warfarin 5 MG tablet 1 tablet. 0 01/02/2018 Active Start: 01-02-2018 warfarin 5 MG tablet 7 mg. Tuesday and Tuesday 7.5 mg, S,M,W,,F 5 mg daily 0 01/02/2018 Active Warfarin [...] Translations: [Generalized abdominal pain] Onset: 3 Episodic Biliary tract disease (20 sources) Obstruction of bile duct; Translations: [Obstruction of bile duct] Onset: 3 Resolved: 4 09-07-2023 Chronic Biliary tract disease (20 sources) Gallstone; Translations: [Calculus of gallbladder without cholecystitis without obstruction] Onset: 2 Resolved: 2 Episodic Cardiac dysrhythmias (20 sources) Paroxysmal atrial fibrillation; Translations: [Paroxysmal atrial fibrillation] Onset: 3 Resolved: 4 Chronic Cataract (5 sources) Bilateral age-related nuclear cataracts; Translations: [Age-related nuclear cataract, bilateral] Onset: 4 10-28-2023 Chronic Chronic kidney disease (20 sources) Chronic kidney disease stage 3A ; Translations: [Stage 3a chronic kidney disease] Onset: 2 Resolved: 4 Chronic Complication of device; implant or graft (1 source) Joint pain; Translations: [Pain due to internal orthopedic prosthetic devices, implants and grafts, sequela] Episodic Complications of surgical procedures or medical care (9 sources) Retained cholelithiasis following cholecystectomy; Translations: [Retained cholelithiasis following cholecystectomy] Episodic Congestive heart failure; nonhypertensive (12 sources) Chronic diastolic heart failure; Translations: [Chronic diastolic (congestive) heart failure] Chronic Coronary atherosclerosis and other heart disease (3 sources) Coronary arteriosclerosis; Translations: [Atherosclerotic heart disease of [place] coronary artery without angina pectoris] Onset: 4 06-23-2024 Chronic Deficiency and other anemia (13 sources) Anemia; Translations: [Anemia, unspecified] 07-10-2024 Episodic Deficiency and other anemia (4 sources) Anemia, unspecified; Translations: [Anemia, unspecified] Onset: 2 04-04-2024 Episodic Diabetes mellitus with complications (20 sources) Hyperglycemia due to type 2 diabetes mellitus; Translations: [Type 2 diabetes mellitus with hyperglycemia] Onset: 3 Chronic Diabetes mellitus without complication (16 sources) Type 2 diabetes mellitus without complication; Translations: [Type 2 diabetes mellitus without complications] Onset: 3 Resolved: 4 Chronic Disorders of lipid metabolism (20 sources) Mixed hyperlipidemia; Translations: [Mixed hyperlipidemia] Onset: 2 Resolved: 4 Chronic Esophageal disorders (20 sources) Gastroesophageal reflux disease without esophagitis; Translations: [Gastro-esophageal reflux disease without esophagitis] Onset: 2 Resolved: 4 Chronic Essential hypertension (20 sources) Hypertensive disorder; Translations: [Essential hypertension] Onset: 3 Resolved: 4 09-24-2019 Chronic Hyperplasia of prostate (6 sources) Benign prostatic hypertrophy with outflow obstruction; [...] HEMORRHAGE NO LOC INIT] Onset: 3 Episodic Miscellaneous mental health disorders (5 sources) Primary insomnia; Translations: [Primary insomnia] Onset: 4 06-23-2024 Chronic Other aftercare (9 sources) Long-term current use of anticoagulant; Translations: [computer terminal operator (current) use of anticoagulants] Episodic Other aftercare (2 sources) computer terminal operator (current) use of anticoagulants; Translations: [FPC CURRNT USE ANTICOAGULANTS] Onset: 3 Episodic Other aftercare (5 sources) Encounter for therapeutic drug level monitoring; Translations: [ENC THERAPEUTC DRUG LEVL MONITORING] Onset: 3 Episodic Other aftercare (1 source) USP (current) 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; Translations: [[facility]PC CURRENT USE OF ASPIRIN] Onset: 3 Episodic Other aftercare (1 source) Other correction (current) drug therapy; Translations: [OTH INSTRUMENT OPERATOR CURRENT DRUG THERAPY] Onset: 3 Episodic Other aftercare (1 source) Encounter for other plastic and reconstructive surgery following medical procedure or healed injury; Translations: [Encounter for other plastic and reconstructive surgery following medical procedure or healed injury] Onset: 4 Episodic Other circulatory disease (5 sources) Presence of other cardiac implants and grafts; Translations: [Other specified cardiac device in situ] Onset: 4 Resolved: 4 02-15-2024 Chronic Other connective tissue disease (3 sources) [...] [Nodule of adrenal cortex (disorder)] Chronic Other gastrointestinal disorders (9 sources) Pharyngeal dysphagia; [...] of) liver, not elsewhere classified Chronic Other lower respiratory disease (2 sources) Snoring; Translations: [Snoring] 06-27-2024 Episodic Other nervous system disorders (1 source) Other acute postprocedural pain; Translations: [Pain in joint, lower leg] Episodic Other non-traumatic joint disorders (1 source) Pain in right knee; Translations: [Pain in joint, lower leg] Episodic Other nutritional; endocrine; and metabolic disorders (11 sources) Obese class II; Translations: [Body mass index (BMI) 36.0-36.9, adult] Chronic Other nutritional; endocrine; and metabolic disorders (10 sources) Obesity; Translations: [Obesity, unspecified] Onset: 4 01-31-2024 Chronic Other nutritional; endocrine; and metabolic disorders (8 sources) Obesity, unspecified; Translations: [Obesity, unspecified] 01-31-2024 [...] caused by tuberculosis or sexually transmitted disease) (16 sources) Hemopericardium; Translations: [Hemopericardium, not elsewhere classified] Onset: 4 Resolved: 4 01-30-2024 Episodic Residual codes; unclassified (14 sources) Periodic limb movement disorder; Translations: [Periodic limb movement disorder] Onset: 4 06-23-2024 Chronic Residual codes; unclassified (20 sources) Obstructive sleep apnea syndrome; Translations: [Obstructive sleep apnea (adult) (pediatric)] Onset: 3 Resolved: 4 01-30-2024 Chronic Residual codes; unclassified (15 sources) Obstructive sleep apnea (adult) (pediatric); Translations: [Obstructive sleep apnea (adult)(pediatric)] Chronic Residual codes; unclassified (1 source) Sleep apnea, unspecified; Translations: [SLEEP APNEA UNSPECIFIED] Onset: 3 Chronic Residual codes; unclassified (3 sources) Hypersomnia; Translations: [Hypersomnia, unspecified] Onset: 4 06-23-2024 Chronic Residual codes; unclassified (5 sources) Daytime somnolence; Translations: [Other hypersomnia] Onset: 4 06-23-2024 Chronic Residual codes; unclassified (1 source) No current problems or disability; Translations: [Other specified conditions influencing health status] Onset: 2 Episodic Residual codes; unclassified (1 source) Acquired absence of other specified parts of digestive tract; Translations: [ACQ ABSENCE OTH PART DIGESTV TRACT] Onset: 3 Episodic Retinal detachments; defects; vascular occlusion; and retinopathy (20 sources) Exudative age-related macular degeneration; Translations: [Exudative age-related macular degeneration, bilateral, with active choroidal neovascularization] Onset: 3 Resolved: 4 03-17-2023 Chronic Septicemia (except in labor) (9 [...] INT] Onset: 3 Episodic Superficial injury; contusion (14 sources) Abrasion of left cornea; Translations: [Injury [...] pericardial effusion (noninflammatory)] Onset: 4 Viral infection (3 sources) COVID-19; Translations: [Other specified viral infection] 05-16-2024 Episodic Past or Other Problems Problem Classification Problem Date Documented Date Episodic/Chronic Acute cerebrovascular disease (9 sources) Hemorrhage into subarachnoid space of neuraxis; Translations: [Nontraumatic subarachnoid hemorrhage, unspecified] Onset: 3 Resolved: 4 Chronic Calculus of urinary tract (20 sources) Kidney stone; Translations: [Calculus of kidney] Onset: 2 Episodic Chronic kidney disease (3 sources) Chronic kidney disease Diabetes mellitus without complication (9 sources) Glycosuria; Translations: [Glycosuria] Onset: 2 Resolved: 4 Episodic Diverticulosis and diverticulitis (14 sources) Diverticular disease; Translations: [Diverticulosis of intestine, part unspecified, without perforation or abscess without bleeding] Onset: 3 Resolved: 4 02-15-2024 Chronic E Codes: Fall (4 sources) Fall (on) (from) unspecified stairs and steps, initial encounter; Translations: [Fall] Onset: 3 Resolved: 4 02-15-2024 Episodic Esophageal disorders (8 sources) Esophageal disorders; Translations: [Gastro-esophageal reflux disease with esophagitis, without bleeding] Fluid and electrolyte disorders (8 sources) Hyponatremia; Translations: [Hypo-osmolality and hyponatremia] Onset: 2 Episodic Genitourinary symptoms and ill-defined conditions (6 sources) Proteinuria; Translations: [Proteinuria, unspecified] Onset: 2 Resolved: 4 Episodic Glaucoma (4 sources) Glaucoma; Translations: [Unspecified glaucoma] Onset: 3 Resolved: 4 09-24-2019 Chronic Heart valve disorders (14 sources) Non-rheumatic mitral regurgitation ; Translations: [Nonrheumatic mitral (valve) insufficiency] Onset: 3 Resolved: 4 Chronic Inflammation; infection of eye (except that caused by tuberculosis or sexually transmitteddisease) (5 sources) Keratitis; Translations: [Other keratitis] Onset: 3 Resolved: 4 08-29-2023 Episodic Melanomas of skin (4 sources) Melanoma in situ of other parts of face; Translations: [Melanoma in situ of face] Onset: 3 Resolved: 4 02-15-2024 Chronic Nonspecific chest pain (9 sources) Chest pain; Translations: [Chest pain, unspecified] Onset: 4 04-03-2024 Episodic Osteoarthritis (20 sources) Osteoarthritis of right knee joint; Translations: [Unilateral primary osteoarthritis, right knee] Onset: 3 Resolved: 4 Chronic Other connective tissue disease (11 sources) History of total knee arthroplasty; Translations: [Presence of right artificial knee joint] Onset: 2 Resolved: 4 Chronic Other connective tissue disease (2 sources) Repeated falls; Translations: [Repeated falls] Onset: 3 Episodic Other eye disorders (6 sources) Dry eyes; Translations: [Dry eye syndrome of bilateral lacrimal glands] Onset: 3 08-29-2023 Episodic Other gastrointestinal disorders (4 sources) Dysphagia, pharyngoesophageal phase; Translations: [DYSPHAGIA PHARYNGOESOPHAGEAL PHASE] Onset: 2 Episodic Other hereditary and degenerative nervous system conditions (11 sources) Restless legs; Translations: [Restless legs syndrome] Onset: 2 Resolved: 4 Chronic Other injuries and conditions due to external causes (4 sources) Food in larynx causing asphyxiation, initial encounter; Translations: [FOOD LARYNX CAUS ASPHYX INITIAL ENC] Onset: 2 Episodic Other non-epithelial cancer of skin (13 sources) Personal history of other malignant neoplasm of skin; Translations: [Basal cell carcinoma of face] Onset: 3 Resolved: 4 02-15-2024 Episodic Residual codes; unclassified (7 sources) Family history of malignant neoplasm of skin; Translations: [Family history of malignant neoplasm of other organs or systems] Onset: 3 Resolved: 4 09-24-2019 Episodic Unclassified (9 sources) Elevated transaminase level; Translations: [Elevated transaminase level] Unclassified (1 source) Other pericardial effusion (noninflammatory); Translations: [Other pericardial effusion (noninflammatory)] Onset: 4 Results Test Name Value Interpretation Reference Range Facility Office Visiton 07-11-2024 Follow-up visit [id number] Amina Goncalves 1945 M Date Provider Department Center 07/11/2024 Daniel-MAGGY MURPHY [facility] Family History Problem Relation Age of Onset Cancer Mother Heart attack Other Family Status - Relation Status Age at Mother Other Level of Service:[address]3936 [place] OFFICE/OUTPATIENT ESTABLISHED LOW MDM 20 MIN Normal [facility] Basophils Auto (Bld) [#/Vol] on 06-27-2024 Basophils (Bld) [#/Vol] 0.0 10 3/uL 0.0-0.1 [facility] Basophils/100 WBC Auto (Bld) on 06-27-2024 Basophils/100 WBC (Bld) 0.4 % 0.2-2.0 [facility] Eosinophils/100 WBC Auto (Bl d)on 06-27-2024 Eosinophils/100 WBC (Bld) 2.0 % 0.9-7.0 [facility] Erythrocyte distribution wid th Auto (RBC) [Ratio]on 06-27-2024 Erythrocyte distribution width (RBC) [Ratio] 16.6 % High 11.0-15.0 [facility] Hematocrit Auto (Bld) [Volum e fraction]on 06-27-2024 Hematocrit (Bld) [Volume fraction] 38.5 % Low 42.0-54.0 [facility] Hemoglobin [Mass/volume] in Bloodon 06-27-2024 Hemoglobin (Bld) [Mass/Vol] 12.5 g/dL Low 14.0-18.0 [facility] Iron binding capacity [Mass/ volume] in Serum or Plasmaon 06-27-2024 Iron binding capacity [Mass/Vol] 314.0 ug/dL 250.0-450.0 [facility] Iron saturation [Mass Fracti on] in Serum or Plasmaon 06-27-2024 Iron saturation [Mass fraction] 21.3 % [facility] Laboratory - Chemistry and C hemistry - challengeon 06-27-2024 Cobalamin (Vitamin B12) [Mass/Vol] 640 pg/mL [id number] [facility] Comment on above: Performed at: [place] [id number] Director: Erasmo Mack PhD, Phone: [phone] Ferritin [Mass/Vol] 25.0 ng/mL Low 26.0-388.0 [facility] Iron [Mass/Vol] 67.0 ug/dL 65.0-175.0 [facility] - Hematology and Cell countson 06-27-2024 Immature granulocytes/100 WBC (Bld) 0.4 % 0.0-0.5 [facility] Leukocytes [#/volume] correc iván for nucleated erythrocytes in Blood by Automated counon 06-27-2024 WBC corrected for nucl RBC Auto (Bld) [#/Vol] 5.0 10 3/uL 4.0-11.0 [facility] Lymphocytes Auto (Bld) [#/Vo l]on 06-27-2024 Lymphocytes (Bld) [#/Vol] 1.4 10 3/uL 1.2-3.8 [facility] Lymphocytes/100 WBC Auto (Bl d)on 06-27-2024 Lymphocytes/100 WBC (Bld) 27.8 % 20.5-60.0 [facility] MCH Auto (RBC) [Entitic mass ]on 06-27-2024 MCH (RBC) [Entitic mass] 28.8 pg 25.9-34.0 [facility] MCHC Auto (RBC) [Mass/Vol]on 06-27-2024 MCHC (RBC) [Mass/Vol] 32.5 g/dL 29.9-35.2 [facility] MCV Auto (RBC) [Entitic vol] on 06-27-2024 MCV (RBC) [Entitic vol] 88.7 fL 80.0-94.0 [facility] Monocytes Auto (Bld) [#/Vol] on 06-27-2024 Monocytes (Bld) [#/Vol] 0.4 10 3/uL 0.3-0.8 [facility] Monocytes/100 WBC Auto (Bld) on 06-27-2024 Monocytes/100 WBC (Bld) 8.3 % 1.7-12.0 [facility] Neutrophils Auto (Bld) [#/Vo l]on 06-27-2024 Neutrophils (Bld) [#/Vol] 3.1 10 3/uL 1.4-6.5 [facility] Neutrophils/100 WBC Auto (Bl d)on 06-27-2024 Neutrophils/100 WBC (Bld) 61.1 % 43.0-75.0 [facility] No Panel Informationon 06-27 Eosinophils # (Auto) 0.1 10 3/uL 0.0-0.7 [facility] Folate 22.10 ng/mL 8.60-58.90 [facility] Immature Granulocyte # (Auto) 0.02 10 3/uL 0.00-0.03 [facility] Platelet mean volume Auto (B ld) [Entitic vol]on 06-27-2024 Platelet mean volume (Bld) [Entitic vol] 11.2 fL 9.5-13.5 [facility] Platelets Auto (Bld) [#/Vol] on 06-27-2024 Platelets (Bld) [#/Vol] 162 10 3/uL 150-450 [facility] RBC Auto (Bld) [#/Vol]on RBC (Bld) [#/Vol] 4.34 10 6/uL Low 4.70-6.10 [facility] Basophils Auto (Bld) [#/Vol] on 04-18-2024 Basophils (Bld) [#/Vol] 0.0 10 3/uL 0.0-0.1 [facility] Basophils/100 WBC Auto (Bld) on 04-18-2024 Basophils/100 WBC (Bld) 0.5 % 0.2-2.0 [facility] Eosinophils/100 WBC Auto (Bl d)on 04-18-2024 Eosinophils/100 WBC (Bld) 4.3 % 0.9-7.0 [facility] Erythrocyte distribution wid th Auto (RBC) [Ratio]on 04-18-2024 Erythrocyte distribution width (RBC) [Ratio] 14.0 % 11.0-15.0 [facility] Hematocrit Auto (Bld) [Volum e fraction]on 04-18-2024 Hematocrit (Bld) [Volume fraction] 36.8 % Low 42.0-54.0 [facility] Hemoglobin [Mass/volume] in Bloodon 04-18-2024 Hemoglobin (Bld) [Mass/Vol] 11.6 g/dL Low 14.0-18.0 [facility] Iron binding capacity [Mass/ volume] in Serum or Plasmaon 04-18-2024 Iron binding capacity [Mass/Vol] 339.0 ug/dL 250.0-450.0 [facility] Iron saturation [Mass Fracti on] in Serum or Plasmaon 04-18-2024 Iron saturation [Mass fraction] 11.8 % [facility] - Chemistry and C hemistry - challengeon 04-18-2024 Cobalamin (Vitamin B12) [Mass/Vol] 594.0 pg/mL 193.0-986.0 [facility] Ferritin [Mass/Vol] 20.0 ng/mL Low 26.0-388.0 [facility] Iron [Mass/Vol] 40.0 ug/dL Low 65.0-175.0 [facility] - Hematology and Cell countson 04-18-2024 Immature granulocytes/100 WBC (Bld) 0.0 % 0.0-0.5 [facility] Leukocytes [#/volume] correc iván for nucleated erythrocytes in Blood by Automated counon 04-18-2024 WBC corrected for nucl RBC Auto (Bld) [#/Vol] 4.4 10 3/uL 4.0-11.0 [facility] Lymphocytes Auto (Bld) [#/Vo l]on 04-18-2024 Lymphocytes (Bld) [#/Vol] 1.5 10 3/uL 1.2-3.8 [facility] Lymphocytes/100 WBC Auto (Bl d)on 04-18-2024 Lymphocytes/100 WBC (Bld) 34.1 % 20.5-60.0 [facility] MCH Auto (RBC) [Entitic mass ]on 04-18-2024 MCH (RBC) [Entitic mass] 27.5 pg 25.9-34.0 [facility] MCHC Auto (RBC) [Mass/Vol]on 04-18-2024 MCHC (RBC) [Mass/Vol] 31.5 g/dL 29.9-35.2 [facility] MCV Auto (RBC) [Entitic vol] on 04-18-2024 MCV (RBC) [Entitic vol] 87.2 fL 80.0-94.0 [facility] Monocytes Auto (Bld) [#/Vol] on 04-18-2024 Monocytes (Bld) [#/Vol] 0.4 10 3/uL 0.3-0.8 [facility] Monocytes/100 WBC Auto (Bld) on 04-18-2024 Monocytes/100 WBC (Bld) 9.4 % 1.7-12.0 [facility] Neutrophils Auto (Bld) [#/Vo l]on 04-18-2024 Neutrophils (Bld) [#/Vol] 2.3 10 3/uL 1.4-6.5 [facility] Neutrophils/100 WBC Auto (Bl d)on 04-18-2024 Neutrophils/100 WBC (Bld) 51.7 % 43.0-75.0 [facility] No Panel Informationon 04-18 Eosinophils # (Auto) 0.2 10 3/uL 0.0-0.7 [facility] Immature Granulocyte # (Auto) 0.00 10 3/uL 0.00-0.03 [facility] Platelet mean volume Auto (B ld) [Entitic vol]on 04-18-2024 Platelet mean volume (Bld) [Entitic vol] 11.1 fL 9.5-13.5 [facility] Platelets Auto (Bld) [#/Vol] on 04-18-2024 Platelets (Bld) [#/Vol] 185 10 3/uL 150-450 [facility] RBC Auto (Bld) [#/Vol]on RBC (Bld) [#/Vol] 4.22 10 6/uL Low 4.70-6.10 [facility] Office Visiton 04-12-2024 Follow-up visit [id number] Amina Goncalves alyx Blackman 1945 M Date Provider Department Center 04/12/2024 Daniel-MAGGY MURPHY [facility] Family History Problem Relation Age of Onset Cancer Mother Heart attack Other Family Status - Relation Status Age at Mother Other Level of Service:[id number] [place] OFFICE/OUTPATIENT ESTABLISHED MOD MDM 30 MIN Normal [facility] Basophils Auto (Bld) [#/Vol] on 04-02-2024 Basophils (Bld) [#/Vol] 0.0 10 3/uL 0.0-0.1 [facility] Basophils/100 WBC Auto (Bld) on 04-02-2024 Basophils/100 WBC (Bld) 0.6 % 0.2-2.0 [facility] Eosinophils/100 WBC Auto (Bl d)on 04-02-2024 Eosinophils/100 WBC (Bld) 3.3 % 0.9-7.0 [facility] Erythrocyte distribution wid th Auto (RBC) [Ratio]on 04-02-2024 Erythrocyte distribution width (RBC) [Ratio] 13.9 % 11.0-15.0 [facility] Estimated glomerular filtrat ion rate (GFR) non- Americanon 04-02-2024 GFR/1.73 sq M.predicted among non-blacks MDRD (S/P/Bld) [Vol rate/Area] 49 mL/min/{1.73_m2} Low >=60 [facility] Globulin Calc (S) [Mass/Vol] on 04-02-2024 Globulin (S) [Mass/Vol] 3.0 g/dL [facility] Hematocrit Auto (Bld) [Volum e fraction]on 04-02-2024 Hematocrit (Bld) [Volume fraction] 32.6 % Low 42.0-54.0 [facility] Hemoglobin [Mass/volume] in Bloodon 04-02-2024 Hemoglobin (Bld) [Mass/Vol] 10.3 g/dL Low 14.0-18.0 [facility] Laboratory - Chemistry and C hemistry - challengeon 04-02-2024 Albumin [Mass/Vol] 2.8 g/dL Low 3.4-5.0 [facility] ALP [Catalytic activity/Vol] 76 U/L 46-116 [facility] ALT [Catalytic activity/Vol] 14 U/L Low 16-63 [facility] AST [Catalytic activity/Vol] 11 U/L Low 15-37 [facility] Bilirubin [Mass/Vol] 0.4 mg/dL 0.2-1.0 [facility] Calcium [Mass/Vol] 8.4 mg/dL Low 8.5-10.1 [facility] Chloride [Moles/Vol] 107 mmol/L 98-107 [facility] CO2 [Moles/Vol] 28.1 mmol/L 21.0-32.0 [facility] Creatinine [Mass/Vol] 1.40 mg/dL High 0.70-1.30 [facility] GFR/1.73 sq M.predicted MDRD (S/P/Bld) [Vol rate/Area] 59 mL/min/{1.73_m2} Low >=60 [facility] Glucose [Mass/Vol] 141 mg/dL High 74-106 [facility] Potassium [Moles/Vol] 4.3 mmol/L 3.5-5.1 [facility] Protein [Mass/Vol] 5.8 g/dL Low 6.4-8.2 [facility] Sodium [Moles/Vol] 142 mmol/L 136-145 [facility] Urea nitrogen [Mass/Vol] 16.0 mg/dL 7.0-18.0 [facility] Urea nitrogen/Creatinine [Mass ratio] 11.4 mg/mg [facility] Laboratory - Hematology and Cell countson 04-02-2024 Immature granulocytes/100 WBC (Bld) 0.2 % 0.0-0.5 [facility] Leukocytes [#/volume] correc iván for nucleated erythrocytes in Blood by Automated counon 04-02-2024 WBC corrected for nucl RBC Auto (Bld) [#/Vol] 5.2 10 3/uL 4.0-11.0 [facility] Lymphocytes Auto (Bld) [#/Vo l]on 04-02-2024 Lymphocytes (Bld) [#/Vol] 1.7 10 3/uL 1.2-3.8 [facility] Lymphocytes/100 WBC Auto (Bl d)on 04-02-2024 Lymphocytes/100 WBC (Bld) 32.6 % 20.5-60.0 [facility] MCH Auto (RBC) [Entitic mass ]on 04-02-2024 MCH (RBC) [Entitic mass] 27.8 pg 25.9-34.0 [facility] MCHC Auto (RBC) [Mass/Vol]on 04-02-2024 MCHC (RBC) [Mass/Vol] 31.6 g/dL 29.9-35.2 [facility] MCV Auto (RBC) [Entitic vol] on 04-02-2024 MCV (RBC) [Entitic vol] 87.9 fL 80.0-94.0 [facility] Monocytes Auto (Bld) [#/Vol] on 04-02-2024 Monocytes (Bld) [#/Vol] 0.7 10 3/uL 0.3-0.8 [facility] Monocytes/100 WBC Auto (Bld) on 04-02-2024 Monocytes/100 WBC (Bld) 12.9 % High 1.7-12.0 [facility] Neutrophils Auto (Bld) [#/Vo l]on 04-02-2024 Neutrophils (Bld) [#/Vol] 2.6 10 3/uL 1.4-6.5 [facility] Neutrophils/100 WBC Auto (Bl d)on 04-02-2024 Neutrophils/100 WBC (Bld) 50.4 % 43.0-75.0 [facility] No Panel Informationon 04-02 Eosinophils # (Auto) 0.2 10 3/uL 0.0-0.7 [facility] Immature Granulocyte # (Auto) 0.01 10 3/uL 0.00-0.03 [facility] Troponin I High Sensitivity 7.8 pg/mL 4.0-76.1 [facility] Comment on above: CUT-OFF POINTS HAVE [...] volume (Bld) [Entitic vol] 12.5 fL 9.5-13.5 [facility] Platelets Auto (Bld) [#/Vol] on 04-02-2024 Platelets (Bld) [#/Vol] 139 10 3/uL Low 150-450 [facility] RBC Auto (Bld) [#/Vol]on RBC (Bld) [#/Vol] 3.71 10 6/uL Low 4.70-6.10 [facility] Serum or plasma albumin/glob ulin mass ratioon 04-02-2024 Albumin/Globulin [Mass ratio] 0.9 {ratio} [facility] Serum or plasma anion gap de terminationon 04-02-2024 Anion gap [Moles/Vol] 11.2 mmol/L [facility] Basophils Auto (Bld) [#/Vol] on 04-01-2024 Basophils (Bld) [#/Vol] 0.0 10 3/uL 0.0-0.1 [facility] Basophils/100 WBC Auto (Bld) on 04-01-2024 Basophils/100 WBC (Bld) 0.2 % 0.2-2.0 [facility] Eosinophils/100 WBC Auto (Bl d)on 04-01-2024 Eosinophils/100 WBC (Bld) 1.8 % 0.9-7.0 [facility] Erythrocyte distribution wid th Auto (RBC) [Ratio]on 04-01-2024 Erythrocyte distribution width (RBC) [Ratio] 13.7 % 11.0-15.0 [facility] Estimated glomerular filtrat ion rate (GFR) non- Americanon 04-01-2024 GFR/1.73 sq M.predicted among non-blacks MDRD (S/P/Bld) [Vol rate/Area] 43 mL/min/{1.73_m2} Low >=60 [facility] Globulin Calc (S) [Mass/Vol] on 04-01-2024 Globulin (S) [Mass/Vol] 3.3 g/dL [facility] Hematocrit Auto (Bld) [Volum e fraction]on 04-01-2024 Hematocrit (Bld) [Volume fraction] 35.6 % Low 42.0-54.0 [facility] Hemoglobin [Mass/volume] in Bloodon 04-01-2024 Hemoglobin (Bld) [Mass/Vol] 11.1 g/dL Low 14.0-18.0 [facility] INR in Platelet poor plasma by Coagulation assayon 04-01-2024 INR Coag (PPP) [Relative time] 0.98 {INR} [facility] Comment on above: DESIRED INR:2.0-3.0 CONDITIONS NOT LISTED BELOW2.5-3.5 FOR PROSTHETIC HEART VALVE REPLACEMENT2.5-3.5 RECURRENT THROMBOSIS Laboratory - Chemistry and C hemistry - challengeon 04-01-2024 Albumin [Mass/Vol] 3.3 g/dL Low 3.4-5.0 [facility] ALP [Catalytic activity/Vol] 91 U/L 46-116 [facility] ALT [Catalytic activity/Vol] 19 U/L 16-63 [facility] AST [Catalytic activity/Vol] 12 U/L Low 15-37 [facility] Bilirubin [Mass/Vol] 0.4 mg/dL 0.2-1.0 [facility] Calcium [Mass/Vol] 8.5 mg/dL 8.5-10.1 [facility] Chloride [Moles/Vol] 102 mmol/L 98-107 [facility] CO2 [Moles/Vol] 26.5 mmol/L 21.0-32.0 [facility] Creatinine [Mass/Vol] 1.56 mg/dL High 0.70-1.30 [facility] GFR/1.73 sq M.predicted MDRD (S/P/Bld) [Vol rate/Area] 52 mL/min/{1.73_m2} Low >=60 [facility] Glucose [Mass/Vol] 234 mg/dL High 74-106 [facility] Natriuretic peptide B (Bld) [Mass/Vol] 284.0 pg/mL <=1800.0 [facility] Potassium [Moles/Vol] 4.2 mmol/L 3.5-5.1 [facility] Protein [Mass/Vol] 6.6 g/dL 6.4-8.2 [facility] Sodium [Moles/Vol] 138 mmol/L 136-145 [facility] Urea nitrogen [Mass/Vol] 18.0 mg/dL 7.0-18.0 [facility] Urea nitrogen/Creatinine [Mass ratio] 11.5 mg/mg [facility] Laboratory - Hematology and Cell countson 04-01-2024 Immature granulocytes/100 WBC (Bld) 0.2 % 0.0-0.5 [facility] Leukocytes [#/volume] correc iván for nucleated erythrocytes in Blood by Automated counon 04-01-2024 WBC corrected for nucl RBC Auto (Bld) [#/Vol] 6.2 10 3/uL 4.0-11.0 [facility] Lymphocytes Auto (Bld) [#/Vo l]on 04-01-2024 Lymphocytes (Bld) [#/Vol] 1.3 10 3/uL 1.2-3.8 [facility] Lymphocytes/100 WBC Auto (Bl d)on 04-01-2024 Lymphocytes/100 WBC (Bld) 20.2 % Low 20.5-60.0 [facility] MCH Auto (RBC) [Entitic mass ]on 04-01-2024 MCH (RBC) [Entitic mass] 27.5 pg 25.9-34.0 [facility] MCHC Auto (RBC) [Mass/Vol]on 04-01-2024 MCHC (RBC) [Mass/Vol] 31.2 g/dL 29.9-35.2 [facility] MCV Auto (RBC) [Entitic vol] on 04-01-2024 MCV (RBC) [Entitic vol] 88.1 fL 80.0-94.0 [facility] Monocytes Auto (Bld) [#/Vol] on 04-01-2024 Monocytes (Bld) [#/Vol] 0.6 10 3/uL 0.3-0.8 [facility] Monocytes/100 WBC Auto (Bld) on 04-01-2024 Monocytes/100 WBC (Bld) 10.2 % 1.7-12.0 [facility] Neutrophils Auto (Bld) [#/Vo l]on 04-01-2024 Neutrophils (Bld) [#/Vol] 4.2 10 3/uL 1.4-6.5 [facility] Neutrophils/100 WBC Auto (Bl d)on 04-01-2024 Neutrophils/100 WBC (Bld) 67.4 % 43.0-75.0 [facility] No Panel Informationon 04-01 Troponin I High Sensitivity 6.7 pg/mL 4.0-76.1 [facility] Comment on above: CUT-OFF POINTS HAVE [...] (Auto) 0.1 10 3/uL 0.0-0.7 [facility] Immature Granulocyte # (Auto) 0.01 10 3/uL 0.00-0.03 [facility] Platelet mean volume Auto (B ld) [Entitic vol]on 04-01-2024 Platelet mean volume (Bld) [Entitic vol] 11.8 fL 9.5-13.5 [facility] Platelets Auto (Bld) [#/Vol] on 04-01-2024 Platelets (Bld) [#/Vol] 152 10 3/uL 150-450 [facility] Prothrombin time (PT)on PT Coag (PPP) [Time] 10.4 s 9.0-11.6 [facility] RBC Auto (Bld) [#/Vol]on RBC (Bld) [#/Vol] 4.04 10 6/uL Low 4.70-6.10 [facility] Serum or plasma albumin/glob ulin mass ratioon 04-01-2024 Albumin/Globulin [Mass ratio] 1.0 {ratio} [facility] Serum or plasma anion gap de terminationon 04-01-2024 Anion gap [Moles/Vol] 13.7 mmol/L [facility] Office Visiton 03-22-2024 Follow-up visit [id number] Amina Goncalves 1945 M Date Provider Department Center 03/22/2024 [place] RUELAS TIMO Santiago Family History Problem Relation Age of Onset Cancer Mother Heart attack Other Family Status - Relation Status Age at Mother Other Level of Service:03533 [place] OFFICE/OUTPATIENT ESTABLISHED LOW MDM 20 MIN Normal [facility] HPon 03-16-2024 HP History Of Present I [...] a hospital admission) Transesophageal echo (JESSICA) 01/24/2024 [id number] Final Review of Systems Constitutional: Positive for [...] of left atrial appendage closure per protocol. [facility] NURSNOTEon 03-16-2024 NURSNOTE Bedside swallow stud y passed. [facility] NURSNOTE RN educated pt on d/ c instructions. RN encouraged pt to voice any questions or concerns. Pt verbalizes no questions or concerns at this time. Normal [facility] Glucose mean value [Mass/vol ume] in Blood Estimated from glycated hemoglobinon 02-27-2024 Average glucose Estimated from glycated hemoglobin (Bld) [Mass/Vol] 160 mg/dL [facility] - Hematology and Cell countson 02-27-2024 HbA1c (Bld) [Mass fraction] 7.2 % High 4.5-6.2 [facility] Comment on above: ADA RECOMMENDED LIMI T 4.0 - 6.0ADA THERAPEUTIC TARGET < 7.0ACTION SUGGESTED> 7.0 Capillary blood glucose winifred urement by glucometer (mass/volume)Ordered By: Augustine Freitas on 02-24-2024 Glucose [Mass/Vol] 124 mg/dL [facility] Comment on above: Random Glucose Refer ence Range is dependent on time and content of last meal. Glucose of more than 200 mg/dL in a nonstressed, ambulatory subject supports the diagnosis of Diabetes Mellitus. Result Comment: [place] Glucose Reference Range is dependent on time and content of last meal. Glucose of more than 200 mg/dL in a nonstressed, ambulatory subject supports the diagnosis of Diabetes Mellitus. Performed By: #### G LULS #### Point of Care testing , Glucose Poct Glucometerson 0 02-24-2024 Commemt1 Glu2: Cleaned Meter Normal [facility] Comment on above: Result Comment: PERF ORMED BY: [place] [address] PATHOLOGIST [employer] RICKY STRANGE M.D. Performed By: #### G LULS #### Point of Care testing , No Panel InformationOrdered By: Augustine Freitas on 02-24-2024 Bedside Glucose Comment Glu2: cleaned meter [facility] 36on 02-16-2024 36 There are pictures i n media Normal [facility] ECG 12 lead ECGon 02-16-2024 ECG 12 lead ECG [facility] Main [address] [address] Electrocardiograph Report Signed Patient: Tito Goncalves MR#: [id number] : 1945 Acct:[id number] Age/Sex: 79 / M ADM Date: 02/16/24 Loc: PS Room: Type: [facility] Attending Dr: Augustine Freitas DO Ordering Provider: [...] T wave abnormality Confirmed by Viviane Herman ([id number]) on 02/17/2024 12:43:51 PM Referred By: JAMAR Electronically Signed By:Viviane Herman Transcribed By: QI Signed By Viviane Herman MD 4 1243 Normal [facility] Office Visiton 02-09-2024 Follow-up visit [id number] Amina Goncalves 1945 M Date Provider Department Center 02/09/2024 [facility] Family History Problem Relation Age of Onset Cancer Mother Heart attack Other Family Status - Relation Status Age at Mother Other Level of Service:13763 [place] OFFICE/OUTPATIENT ESTABLISHED LOW MDM 20 MIN Reason for Visit and Comments: Atrial Fibrillation [80] - S/p LAAO with Amulet device Normal [facility] 30on 01-29-2024 30 The patient is Moder [...] Goal: Maintains hematologic stability Outcome: Progressing Normal [facility] BASIC METABOLIC PANELon 05-0 Anion gap [Moles/Vol] 11 mmol/L Normal 7-20 [facility] Comment on above: Performed By: #### L [id number] #### [facility] ([facility]) [address] [place] [address] Calcium [Mass/Vol] 8.0 mg/dL Low 8.6-10.3 [facility] Comment on above: Performed By: #### L [id number] #### [facility] ([facility]) [address] [place] [address] Chloride [Moles/Vol] 109 mmol/L High 98-107 [facility] Comment on above: Performed By: #### L [id number] #### [facility] ([facility]) [address] [place] [address] CO2 [Moles/Vol] 24 mmol/L Normal 21-31 [facility] Comment on above: Performed By: #### L [id number] #### [facility] ([facility]) [address] [place] [address] Creatinine [Mass/Vol] 1.17 mg/dL Normal 0.70-1.30 [facility] Comment on above: Performed By: #### L [id number] #### [facility] ([facility]) [address] [place] [address] GLOMERULAR FILTRATION RATE ML/MIN/1.73 SQ M.PREDICTED 63.8 mL/min/1.73m*2 Normal >60.0 [facility] Comment on above: Result Comment: The [facility]???s estimated glomerular filtration rate (eGFR) will no [...] individuals. Performed By: #### L [id number] #### [facility] ([facility]) [address] [place] [address] Glucose [Mass/Vol] 125 mg/dL High 70-100 [facility] Comment on above: Performed By: #### L [id number] #### [facility] ([facility]) [address] [place] [address] Potassium [Moles/Vol] 3.6 mmol/L Normal 3.5-5.1 [facility] Comment on above: Performed By: #### L [id number] #### [facility] ([facility]) [address] [place] [address] Sodium [Moles/Vol] 140 mmol/L Normal 136-145 [facility] Comment on above: Performed By: #### L [id number] #### [facility] ([facility]) [address] [place] [address] Urea nitrogen [Mass/Vol] 22 mg/dL Normal 7-25 [facility] Comment on above: Performed By: #### L [id number] #### [facility] [address] [place] [address] UREA NITROGEN/CREATININE (MASS RATIO) IN SER/PLAS 18.8 Normal [facility] Comment on above: Performed By: #### L [id number] #### [facility] [address] [place] [address] CBCon 01-29-2024 Erythrocyte distribution width (RBC) [Ratio] 14.6 % Normal 11.5-15.0 [facility] Comment on above: Performed By: #### L [id number] #### [facility] [address] [place] [address] ERYTHROCYTE MEAN CORPUSCULAR HEMOGLOBIN CONCENTRATION (G/DL) BY AUTOMATED 32.8 g/dL Normal 32.0-35.0 [facility] Comment on above: Performed By: #### L [id number] #### [facility] ([facility]) [address] [place] [address] Hematocrit (Bld) [Volume fraction] 30.5 % Low 39.0-55.0 [facility] Comment on above: Performed By: #### L [id number] #### [facility] ([facility]) [address] [place] [address] Hemoglobin (Bld) [Mass/Vol] 10.0 g/dL Low 13.0-17.0 [facility] Comment on above: Performed By: #### L [id number] #### [facility] ([facility]) [address] [place] [address] MCH (RBC) [Entitic mass] 29.1 pg Normal 27.0-33.0 [facility] Comment on above: Performed By: #### L [id number] #### [facility] ([facility]) [address] [place] [address] MCV (RBC) [Entitic vol] 88.7 fL Normal 82.0-98.0 [facility] Comment on above: Performed By: #### L [id number] #### [facility] ([facility]) [address] [place] [address] PLATELETS (10*3/UL) IN BLOOD AUTOMATED COUNT 151 10*3/uL Normal 150-400 [facility] Comment on above: Performed By: #### L [id number] #### [facility] ([facility]) [address] [place] [address] RBC (Bld) [#/Vol] 3.44 10*6/uL Low 4.20-5.[address] [facility] Comment on above: Performed By: #### L [id number] #### [facility] ([facility]) [address] [place] [address] WBC (Bld) [#/Vol] 6.43 10*3/uL Normal 4.00-10.[address] [facility] Comment on above: Performed By: #### L [id number] #### [facility] ([facility]) [address] [place] [address] HEMOGLOBIN A1Con 01-29-2024 Glucose [Mass/Vol] 163 mg/dL Normal [facility] Comment on above: Performed By: #### L [id number] #### [facility] ([facility]) [address] [place] [address] HbA1c (Bld) [Mass fraction] 7.3 % High 4.0-6.0 [facility] Comment on above: Performed By: #### L [id number] #### [facility] ([facility]) [address] [place] [address] POCT GLUCOSE METER UNSOLICIT ED RESULTSon 01-29-2024 Glucose [Mass/Vol] 218 mg/dL High 70-105 [facility] Comment on above: Order Comment: Waive d Testing in the ED is performed under the ED CLIA certificate #[id number]. Result Comment: [email or web address] Performed By: #### L [id number] ####[facility] ([facility])[address] [place] [address] Glucose [Mass/Vol] 138 mg/dL High 70-105 [facility] Comment on above: Order Comment: Waive d Testing in the ED is performed under the ED CLIA certificate #[id number]. Result Comment: [email or web address] Performed By: #### L [id number] #### [facility] ([facility]) [address] [place] [address] 30on 01-28-2024 30 The patient is Moder [...] and behaviors that affect risk of falls [place] fall precautions as indicated by assessment Problem: [...] Goal: Maintains hematologic stability Outcome: Progressing Normal [facility] BASIC METABOLIC PANELon 05-0 Anion gap [Moles/Vol] 12 mmol/L Normal 7-20 [facility] Comment on above: Performed By: #### L [id number] ####[facility] ([facility])[address] [place] [address] Calcium [Mass/Vol] 7.7 mg/dL Low 8.6-10.3 [facility] Comment on above: Performed By: #### L [id number] ####[facility] ([facility] [place] [address] Chloride [Moles/Vol] 108 mmol/L High 98-107 [facility] Comment on above: Performed By: #### L [id number] ####[facility] ([facility])[address] [place] [address] CO2 [Moles/Vol] 21 mmol/L Normal 21-31 [facility] Comment on above: Performed By: #### L [id number] ####[facility] ([facility])[address] [place] [address] Creatinine [Mass/Vol] 1.16 mg/dL Normal 0.70-1.30 [facility] Comment on above: Performed By: #### L [id number] ####[facility] ([facility])[address] [place] [address] GLOMERULAR FILTRATION RATE ML/MIN/1.73 SQ M.PREDICTED 64.5 mL/min/1.73m*2 Normal >60.0 [facility] Comment on above: Result Comment: The [facility]???s estimated glomerular filtration rate (eGFR) will no [...] of individuals. Performed By: #### L [id number] ####[facility] ([facility])[address] [place] [address] Glucose [Mass/Vol] 143 mg/dL High 70-100 [facility] Comment on above: Performed By: #### L [id number] ####[facility] ([facility])[address] [place] [address] Potassium [Moles/Vol] 3.3 mmol/L Low 3.5-5.1 [facility] Comment on above: Performed By: #### L [id number] ####[facility] ([facility])[address] [place] [address] Sodium [Moles/Vol] 138 mmol/L Normal 136-145 [facility] Comment on above: Performed By: #### L [id number] ####[facility] ([facility])[address] [place] [address] Urea nitrogen [Mass/Vol] 27 mg/dL High 7-25 [facility] Comment on above: Performed By: #### L [id number] ####[facility] ([facility])[address] [place] [address] UREA NITROGEN/CREATININE (MASS RATIO) IN SER/PLAS 23.3 Normal [facility] Comment on above: Performed By: #### L [id number] ####[facility] ([facility])[address] [place] [address] CBCon 01-28-2024 Erythrocyte distribution width (RBC) [Ratio] 14.4 % Normal 11.5-15.0 [facility] Comment on above: Performed By: #### L [id number] #### [facility] ([facility]) [address] [place] [address] ERYTHROCYTE MEAN CORPUSCULAR HEMOGLOBIN CONCENTRATION (G/DL) BY AUTOMATED 32.8 g/dL Normal 32.0-35.0 [facility] Comment on above: Performed By: #### L [id number] #### [facility] ([facility]) [address] [place] [address] Hematocrit (Bld) [Volume fraction] 31.4 % Low 39.0-55.0 [facility] Comment on above: Performed By: #### L [id number] #### [facility] ([facility]) [address] [place] [address] Hemoglobin (Bld) [Mass/Vol] 10.3 g/dL Low 13.0-17.0 [facility] Comment on above: Performed By: #### L [id number] #### [facility] ([facility]) [address] [place] [address] MCH (RBC) [Entitic mass] 29.0 pg Normal 27.0-33.0 [facility] Comment on above: Performed By: #### L [id number] #### [facility] ([facility]) [address] [place] [address] MCV (RBC) [Entitic vol] 88.5 fL Normal 82.0-98.0 [facility] Comment on above: Performed By: #### L [id number] #### [facility] ([facility]) [address] [place] [address] PLATELETS (10*3/UL) IN BLOOD AUTOMATED COUNT 134 10*3/uL Low 150-400 [facility] Comment on above: Performed By: #### L [id number] #### [facility] ([facility]) [address] [place] [address] RBC (Bld) [#/Vol] 3.55 10*6/uL Low 4.20-5.[address] [facility] Comment on above: Performed By: #### L [id number] #### [facility] ([facility]) [address] [place] [address] WBC (Bld) [#/Vol] 6.52 10*3/uL Normal 4.00-10.[address] [facility] Comment on above: Performed By: #### L [id number] #### [facility] ([facility]) [address] [place] [address] MAGNESIUMon 01-28-2024 Magnesium [Mass/Vol] 1.8 mg/dL Low 1.9-2.7 [facility] Comment on above: Performed By: #### L [id number] ####[facility] ([facility])[address] [place] [address] PHOSPHORUSon 01-28-2024 Magnesium [Mass/Vol] 2.5 mg/dL Normal 2.5-5.0 [facility] Comment on above: Performed By: #### L [id number] ####[facility] ([facility])[address] [place] [address] POCT GLUCOSE METER UNSOLICIT ED RESULTSon 01-28-2024 Glucose [Mass/Vol] 258 mg/dL High 70-105 [facility] Comment on above: Order Comment: Waive d Testing in the ED is performed under the ED CLIA certificate #[id number]. Result Comment: [email or web address] Performed By: #### L [id number] #### [facility] ([facility]) [address] [place] [address] Glucose [Mass/Vol] 133 mg/dL High 70-105 [facility] Comment on above: Order Comment: Waive d Testing in the ED is performed under the ED CLIA certificate #[id number]. Result Comment: [email or web address] Performed By: #### L [id number] ####[facility] ([facility])[address] [place] [address] Glucose [Mass/Vol] 260 mg/dL High 70-105 [facility] Comment on above: Order Comment: Waive d Testing in the ED is performed under the ED CLIA certificate #[id number]. Result Comment: [email or web address] Performed By: #### L [id number] #### [facility] ([facility]) [address] [place] [address] Glucose [Mass/Vol] 140 mg/dL High 70-105 [facility] Comment on above: Order Comment: Waive d Testing in the ED is performed under the ED CLIA certificate #[id number]. Result Comment: [email or web address] Performed By: #### L [id number] ####[facility] ([facility])[address] [place] [address] 30on 01-27-2024 30 Daily Case Managemen t Update Multidisciplinary rounds have been completed. 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 Pericardial drain remains in place. On amiodarone gtt. Plan to discharge home when medically cleared. Diet: Dietary Orders (From admission, onward) Start Ordered 01/26/24 1247 Special Kitchen Request Once Comments: Chicken noodle soup Fruit cup Diet coke Tilapia (plain) [place] cake 01/26/24 1246 01/26/24 1246 Regular Diet [...] Answer: eval and treat 01/26/24 1241 Normal [facility] 30 The patient is Moder ately Stable [...] medication and electrolyte replacement as ordered Normal [facility] BASIC METABOLIC PANELon 05-0 Anion gap [Moles/Vol] 11 mmol/L Normal 7-20 [facility] Comment on above: Performed By: #### L [id number] ####[facility] ([facility])[address] [place] [address] Calcium [Mass/Vol] 7.9 mg/dL Low 8.6-10.3 [facility] Comment on above: Performed By: #### L [id number] ####[facility] ([facility])[address] [place] [address] Chloride [Moles/Vol] 108 mmol/L High 98-107 [facility] Comment on above: Performed By: #### L [id number] ####[facility] ([facility])[address] [place] [address] CO2 [Moles/Vol] 22 mmol/L Normal 21-31 [facility] Comment on above: Performed By: #### L [id number] ####[facility] ([facility])[address] [place] [address] Creatinine [Mass/Vol] 1.31 mg/dL High 0.70-1.30 [facility] Comment on above: Performed By: #### L [id number] ####[facility] ([facility])[address] [place] [address] GLOMERULAR FILTRATION RATE ML/MIN/1.73 SQ M.PREDICTED 55.7 mL/min/1.73m*2 Low >60.0 [facility] Comment on above: Result Comment: The [facility]???s estimated glomerular filtration rate (eGFR) will no [...] of individuals. Performed By: #### L [id number] ####[facility] ([facility])[address] [place] [address] Glucose [Mass/Vol] 154 mg/dL High 70-100 [facility] Comment on above: Performed By: #### L [id number] ####[facility] ([facility])[address] [place] [address] Potassium [Moles/Vol] 3.6 mmol/L Normal 3.5-5.1 [facility] Comment on above: Performed By: #### L [id number] ####[facility] ([facility])[address] [place] [address] Sodium [Moles/Vol] 137 mmol/L Normal 136-145 [facility] Comment on above: Performed By: #### L [id number] ####[facility] ([facility])[address] [place] [address] Urea nitrogen [Mass/Vol] 30 mg/dL High 7-25 [facility] Comment on above: Performed By: #### L [id number] ####[facility] [place] [address] UREA NITROGEN/CREATININE (MASS RATIO) IN SER/PLAS 22.9 Normal [facility] Comment on above: Performed By: #### L [id number] ####[facility])[address] [place] [address] CBCon 01-27-2024 Erythrocyte distribution width (RBC) [Ratio] 14.5 % Normal 11.5-15.0 [facility] Comment on above: Performed By: #### L [id number] ####[facility] ([facility])[address] [place] [address] ERYTHROCYTE MEAN CORPUSCULAR HEMOGLOBIN CONCENTRATION (G/DL) BY AUTOMATED 32.2 g/dL Normal 32.0-35.0 [facility] Comment on above: Performed By: #### L [id number] ####[facility] ([facility])[address] [place] [address] Hematocrit (Bld) [Volume fraction] 31.4 % Low 39.0-55.0 [facility] Comment on above: Performed By: #### L [id number] ####[facility] [place], [place] [address] Hemoglobin (Bld) [Mass/Vol] 10.1 g/dL Low 13.0-17.0 [facility] Comment on above: Performed By: #### L [id number] ####[facility] [place], [place] [address] MCH (RBC) [Entitic mass] 29.0 pg Normal 27.0-33.0 [facility] Comment on above: Performed By: #### L [id number] ####[facility] ([facility] [place], [place] [address] MCV (RBC) [Entitic vol] 90.2 fL Normal 82.0-98.0 [facility] Comment on above: Performed By: #### L [id number] ####[facility] ([facility])[address] [place] [address] PLATELETS (10*3/UL) IN BLOOD AUTOMATED COUNT 134 10*3/uL Low 150-400 [facility] Comment on above: Performed By: #### L [id number] ####[facility] ([facility])[address] [place] [address] RBC (Bld) [#/Vol] 3.48 10*6/uL Low 4.20-5.[address] [facility] Comment on above: Performed By: #### L [id number] ####[facility] ([facility])[address] [place] [address] WBC (Bld) [#/Vol] 8.70 10*3/uL Normal 4.00-10.[address] [facility] Comment on above: Performed By: #### L [id number] ####[facility] ([facility])[address] [place] [address] MAGNESIUMon 01-27-2024 Magnesium [Mass/Vol] 2.0 mg/dL Normal 1.9-2.7 [facility] Comment on above: Performed By: #### L [id number] #### [facility] ([facility]) [address] [place] [address] NURSNOTEon 01-27-2024 NURSNOTE Patient Name: Tito Goncalves [...] voiced no concerns at this time. The senior mortgage underwriter urged the primary RN to call the rapid team if any concerns arise overnight. Vic Euceda RN Rapid Response Team Nurse [phone] 01/27/2024 9:04 PM Normal [facility] NURSNOTE Patient Name: Tito Goncalves : 1945 [...] this time. Vital signs are stable via telemetry monitor and daily lab values are unremarkable. If emergent concerns arise, please call rapid response team. Dominga Millard RN Rapid Response Team Nurse [phone] 01/27/2024 12:15 PM Normal [facility] PHOSPHORUSon 01-27-2024 Magnesium [Mass/Vol] 2.2 mg/dL Low 2.5-5.0 [facility] Comment on above: Performed By: #### L [id number] #### [facility] ([facility]) [address] [place] [address] POCT GLUCOSE METER UNSOLICIT ED RESULTSon 01-27-2024 Glucose [Mass/Vol] 206 mg/dL High 70-105 [facility] Comment on above: Order Comment: Waive d Testing in the ED is performed under the ED CLIA certificate #[id number]. Result Comment: [email or web address] Performed By: #### L [id number] #### [facility] ([facility] [address] [place] [address] Glucose [Mass/Vol] 187 mg/dL High 70-105 [facility] Comment on above: Order Comment: Waive d Testing in the ED is performed under the ED CLIA certificate #[id number]. Result Comment: [email or web address] Performed By: #### L [id number] #### [facility] ([facility]) [address] [place] [address] Glucose [Mass/Vol] 223 mg/dL High 70-105 [facility] Comment on above: Order Comment: Waive d Testing in the ED is performed under the ED CLIA certificate #[id number]. Result Comment: [email or web address] Performed By: #### L [id number] #### [facility] ([facility] [address] [place] [address] Glucose [Mass/Vol] 160 mg/dL High 70-105 [facility] Comment on above: Order Comment: Waive d Testing in the ED is performed under the ED CLIA certificate #[id number]. Result Comment: [email or web address] Performed By: #### L [id number] #### [facility] ([facility]) [address] [address] 30on 01-26-2024 30 Daily Case Managemen t [...] soup Fruit cup Diet coke Tilapia (plain) [place] cake 01/26/24 1246 01/26/24 1246 Regular Diet [...] Answer: eval and treat 01/26/24 1241 Normal [facility] BASIC METABOLIC PANELon 05-0 Anion gap [Moles/Vol] 12 mmol/L Normal 7-20 [facility] Comment on above: Performed By: #### L [id number] #### [facility] ([facility]) [address] [place] [address] Calcium [Mass/Vol] 7.6 mg/dL Low 8.6-10.3 [facility] Comment on above: Performed By: #### L [id number] #### [facility] ([facility]) [address] [place] [address] Chloride [Moles/Vol] 109 mmol/L High 98-107 [facility] Comment on above: Performed By: #### L [id number] #### [facility] ([facility]) [address] [place] [address] CO2 [Moles/Vol] 21 mmol/L Normal 21-31 [facility] Comment on above: Performed By: #### L [id number] #### [facility] ([facility]) [address] [place] [address] Creatinine [Mass/Vol] 1.62 mg/dL High 0.70-1.30 [facility] Comment on above: Performed By: #### L [id number] #### [facility] ([facility]) [address] [place] [address] GLOMERULAR FILTRATION RATE ML/MIN/1.73 SQ M.PREDICTED 43.2 mL/min/1.73m*2 Low >60.0 [facility] Comment on above: Result Comment: The [facility]???s estimated glomerular filtration rate (eGFR) will no [...] group of individuals. Performed By: #### L [id number] #### [facility] ([facility]) [address] [place] [address] Glucose [Mass/Vol] 152 mg/dL High 70-100 [facility] Comment on above: Performed By: #### L [id number] #### [facility] ([facility]) [address] [place] [address] Potassium [Moles/Vol] 3.9 mmol/L Normal 3.5-5.1 [facility] Comment on above: Performed By: #### L [id number] #### [facility] ([facility]) [address] [place] [address] Sodium [Moles/Vol] 138 mmol/L Normal 136-145 [facility] Comment on above: Performed By: #### L [id number] #### [facility] ([facility]) [address] [place] [address] Urea nitrogen [Mass/Vol] 37 mg/dL High 7-25 [facility] Comment on above: Performed By: #### L [id number] #### [facility] ([facility]) [address] [place] [address] UREA NITROGEN/CREATININE (MASS RATIO) IN SER/PLAS 22.8 Normal [facility] Comment on above: Performed By: #### L [id number] #### [facility] ([facility]) [address] [place] [address] CBCon 01-26-2024 Erythrocyte distribution width (RBC) [Ratio] 14.5 % Normal 11.5-15.0 [facility] Comment on above: Performed By: #### L [id number] #### [facility] ([facility]) [address] [place] [address] ERYTHROCYTE MEAN CORPUSCULAR HEMOGLOBIN CONCENTRATION (G/DL) BY AUTOMATED 31.9 g/dL Low 32.0-35.0 [facility] Comment on above: Performed By: #### L [id number] #### [facility] ([facility]) [address] [place] [address] Hematocrit (Bld) [Volume fraction] 33.2 % Low 39.0-55.0 [facility] Comment on above: Performed By: #### L [id number] #### [facility] ([facility]) [address] [place] [address] Hemoglobin (Bld) [Mass/Vol] 10.6 g/dL Low 13.0-17.0 [facility] Comment on above: Performed By: #### L [id number] #### [facility] ([facility]) [address] [address] MCH (RBC) [Entitic mass] 29.1 pg Normal 27.0-33.0 [facility] Comment on above: Performed By: #### L [id number] #### [facility] ([facility]) [address] [place] [address] MCV (RBC) [Entitic vol] 91.2 fL Normal 82.0-98.0 [facility] Comment on above: Performed By: #### L [id number] #### [facility] ([facility] [address] [place] [address] PLATELETS (10*3/UL) IN BLOOD AUTOMATED COUNT 123 10*3/uL Low 150-400 [facility] Comment on above: Performed By: #### L [id number] #### [facility] ([facility]) [address] [place] [address] RBC (Bld) [#/Vol] 3.64 10*6/uL Low 4.20-5.[address] [facility] Comment on above: Performed By: #### L [id number] #### [facility] ([facility]) [address] [place] [address] WBC (Bld) [#/Vol] 12.08 10*3/uL High 4.00-10.60 [facility] Comment on above: Performed By: #### L [id number] #### [facility] ([facility]) [address] [place] [address] MAGNESIUMon 01-26-2024 Magnesium [Mass/Vol] 1.9 mg/dL Normal 1.9-2.7 [facility] Comment on above: Performed By: #### L [id number] #### [facility] ([facility]) [address] [place] [address] NURSNOTEon 01-26-2024 NURSNOTE Patient Name: Tito Goncalves [...] time, but encouraged to reach out to LITHOSTRIPPER if anything changes overnight or with any further concerns. Suleman Ortiz RN Rapid Response Team Nurse [phone] 01/26/2024 10:20 PM Normal [facility] PHOSPHORUSon 01-26-2024 Magnesium [Mass/Vol] 3.7 mg/dL Normal 2.5-5.0 [facility] Comment on above: Performed By: #### L [id number] ####[facility] ([employer])[address] [place] [address] POCT GLUCOSE METER UNSOLICIT ED RESULTSon 01-26-2024 Glucose [Mass/Vol] 163 mg/dL High 70-105 [facility] Comment on above: Order Comment: Waive d Testing in the ED is performed under the ED CLIA certificate #[id number]. Result Comment: [email or web address] Performed By: #### L [id number] #### [facility] ([employer]) [address] [place] [address] Glucose [Mass/Vol] 206 mg/dL High 70-105 [facility] Comment on above: Order Comment: Waive d Testing in the ED is performed under the ED CLIA certificate #[id number]. Result Comment: [email or web address] Performed By: #### L [id number] ####[facility] ([employer])[address] [place] [address] Glucose [Mass/Vol] 155 mg/dL High 70-105 [facility] Comment on above: Order Comment: Waive d Testing in the ED is performed under the ED CLIA certificate #[id number]. Result Comment: [email or web address] Performed By: #### L [id number] #### [facility] ([employer]) [address] [place] [address] Glucose [Mass/Vol] 150 mg/dL High 70-105 [facility] Comment on above: Order Comment: Waive d Testing in the ED is performed under the ED CLIA certificate #[id number]. Result Comment: tful [email or web address] Performed By: #### L [id number] #### [facility] ([employer]) [address] [place] [address] 30on 01-25-2024 30 Daily Case Managemen t Update Multidisciplinary rounds have been completed. Barriers to Discharge: 01/24- patient here for planned atrial appendage closure. Per morning meeting the patient fell this morning, presumably from hypotension (BP in 60s/70s). Gave patient fluids to rescusitate but was unsuccessful. Patient was started on levophed and brought to MICU. ECHO showed pericardia effusion, went to lab coordinator this morning for pericardiocentesis. Patient has pericardial drain. May need pt ot given age but would anticipate home maybe with [facility]. CB Diet: Dietary Orders (From admission, onward) Start Ordered 01/24/24 1051 Regular Diet Diabetic Male (carb 60g/meal) Diet effective now Question Answer Comment Room Service? Yes Carbohydrate restriction: Diabetic Male (carb 60g/meal) 01/24/24 1050 Physician Expected Discharge Date: 01/25/2024 Discharge Delays: PT Six Click Score: 21 OT Six Click Score: PT Recommendations: OT Recommendations: New Consults: Normal [facility] BASIC METABOLIC PANELon 05-0 Anion gap [Moles/Vol] 18 mmol/L Normal 7-20 [facility] Comment on above: Performed By: #### L [id number] ####[facility] ([facility])[address] [place] [address] Calcium [Mass/Vol] 7.8 mg/dL Low 8.6-10.3 [facility] Comment on above: Performed By: #### L [id number] ####[facility] ([facility])[address] [place] [address] Chloride [Moles/Vol] 104 mmol/L Normal 98-107 [facility] Comment on above: Performed By: #### L [id number] ####[facility] ([facility])[address] [place] [address] CO2 [Moles/Vol] 20 mmol/L Low 21-31 [facility] Comment on above: Performed By: #### L [id number] ####[facility] ([facility])[address] [place] [address] Creatinine [Mass/Vol] 1.99 mg/dL High 0.70-1.30 [facility] Comment on above: Performed By: #### L [id number] ####[facility] ([facility])[address] [place] [address] GLOMERULAR FILTRATION RATE ML/MIN/1.73 SQ M.PREDICTED 33.7 mL/min/1.73m*2 Low >60.0 [facility] Comment on above: Result Comment: The [facility]???s estimated glomerular filtration rate (eGFR) will no [...] of individuals. Performed By: #### L [id number] ####[facility] ([facility])[address] [place] [address] Glucose [Mass/Vol] 257 mg/dL High 70-100 [facility] Comment on above: Performed By: #### L [id number] ####[facility] ([facility])[address] [place] [address] Potassium [Moles/Vol] 5.0 mmol/L Normal 3.5-5.1 [facility] Comment on above: Performed By: #### L [id number] ####[facility] ([facility])[address] [place] [address] Sodium [Moles/Vol] 137 mmol/L Normal 136-145 [facility] Comment on above: Performed By: #### L [id number] ####[facility] ([facility])[address] [place] [address] Urea nitrogen [Mass/Vol] 30 mg/dL High 7-25 [facility] Comment on above: Performed By: #### L [id number] ####[facility] ([facility])[address] [place] [address] UREA NITROGEN/CREATININE (MASS RATIO) IN SER/PLAS 15.1 Normal [facility] Comment on above: Performed By: #### L [id number] ####[facility] ([facility])[address] [place] [address] BLOOD CULTUREon 01-25-2024 Bacteria identified Cx Nom (Bld) No growth at 5 days Normal [facility] Comment on above: Order Comment: Waive d Testing in the ED is performed under the ED CLIA certificate #[id number]. Performed By: #### L [id number] #### [facility] ([facility]) [address] [place] [address] Bacteria identified Cx Nom (Bld) No growth at 5 days Normal [facility] Comment on above: Performed By: #### L [id number] #### [facility] ([facility]) [address] [place] [address] CBCon 01-25-2024 Erythrocyte distribution width (RBC) [Ratio] 14.1 % Normal 11.5-15.0 [facility] Comment on above: Performed By: #### L [id number] #### [facility] ([facility]) [address] [place] [address] ERYTHROCYTE MEAN CORPUSCULAR HEMOGLOBIN CONCENTRATION (G/DL) BY AUTOMATED 31.9 g/dL Low 32.0-35.0 [facility] Comment on above: Performed By: #### L [id number] #### [facility] ([facility]) [address] [place] [address] Hematocrit (Bld) [Volume fraction] 34.5 % Low 39.0-55.0 [facility] Comment on above: Performed By: #### L [id number] #### [facility] ([facility]) [address] [place] [address] Hemoglobin (Bld) [Mass/Vol] 11.0 g/dL Low 13.0-17.0 [facility] Comment on above: Performed By: #### L [id number] #### [facility] ([facility]) [address] [place] [address] MCH (RBC) [Entitic mass] 28.9 pg Normal 27.0-33.0 [facility] Comment on above: Performed By: #### L [id number] #### [facility] ([facility]) [address] [place] [address] MCV (RBC) [Entitic vol] 90.6 fL Normal 82.0-98.0 [facility] Comment on above: Performed By: #### L [id number] #### [facility] ([facility]) [address] [place] [address] PLATELETS (10*3/UL) IN BLOOD AUTOMATED COUNT 191 10*3/uL Normal 150-400 [facility] Comment on above: Performed By: #### L [id number] #### [facility] ([facility]) [address] [place] [address] RBC (Bld) [#/Vol] 3.81 10*6/uL Low 4.20-5.[address] [facility] Comment on above: Performed By: #### L [id number] #### [facility] ([facility]) [address] [place] [address] WBC (Bld) [#/Vol] 13.57 10*3/uL High 4.00-10.60 [facility] Comment on above: Performed By: #### L [id number] #### [facility] ([facility]) [address] [place] [address] CONSULTon 01-25-2024 CONSULT ------ -- Attestation signed [...] Goncalves Age - 79 y.o. - 1945 [facility] # - [id number] Date of Admission - 01/24/2024 10:46 AM [...] complication and patient was admitted to the [facility] for over night monitoring to be [...] mL, i (more content not included)... Normal [facility] CT CERVICAL SPINE WO IV CONT RASTon [...] signed: Trenton Martinez. 9 Invalid Interpretation Code [facility] CT CHEST WO IV CONTRASTon CT CHEST [...] signed: Trenton Martinez. 5 Invalid Interpretation Code [facility] CT HEAD WO IV CONTRASTon CT HEAD [...] signed: Trenton Martinez. 1 Invalid Interpretation Code [facility] HPon 01-25-2024 HP H&P reviewed. The anthony [...] procedure. He would like to proceed. Normal [facility] LACTIC ACID WITH 4 HOUR REFL EXon 01-25-2024 LACTATE (MMOL/L) IN SER/PLAS 2.1 mmol/L Normal 0.5-2.2 [facility] Comment on above: Performed By: #### L [id number] ####[facility] ([facility])[address] [place] [address] LACTATE (MMOL/L) IN SER/PLAS 3.3 mmol/L Critically high 0.5-2.2 [facility] Comment on above: Performed By: #### L [id number] #### [facility] ([facility]) [address] [place] [address] MAGNESIUMon 01-25-2024 Magnesium [Mass/Vol] 1.8 mg/dL Low 1.9-2.7 [facility] Comment on above: Performed By: #### L [id number] ####[facility] ([facility])[address] [place] [address] POCT GLUCOSE METER UNSOLICIT ED RESULTSon 01-25-2024 Glucose [Mass/Vol] 164 mg/dL High 70-105 [facility] Comment on above: Order Comment: Waive d Testing in the ED is performed under the ED CLIA certificate #[id number]. Result Comment: tful [email or web address] Performed By: #### L [id number] #### [facility] ([facility]) [address] [place] [address] Glucose [Mass/Vol] 134 mg/dL High 70-105 [facility] Comment on above: Order Comment: Waive d Testing in the ED is performed under the ED CLIA certificate #[id number]. Result Comment: amur tad Performed By: #### L [id number] #### [facility] ([facility]) [address] [place] [address] Glucose [Mass/Vol] 167 mg/dL High 70-105 [facility] Comment on above: Order Comment: Waive d Testing in the ED is performed under the ED CLIA certificate #[id number]. Result Comment: amur tad Performed By: #### L [id number] #### [facility] ([facility]) [address] [place] [address] Glucose [Mass/Vol] 208 mg/dL High 70-105 [facility] Comment on above: Order Comment: Waive d Testing in the ED is performed under the ED CLIA certificate #[id number]. Result Comment: amur tad Performed By: #### L [id number] ####[facility] ([facility])[address] [place] [address] Glucose [Mass/Vol] 270 mg/dL High 70-105 [facility] Comment on above: Order Comment: Waive d Testing in the ED is performed under the ED CLIA certificate #[id number]. Result Comment: nbow en Performed By: #### L [id number] #### [facility] ([facility]) [address] [place] [address] PROCALCITONIN TESTon 01-24-2 024 PROCALCITONIN IN BLOOD 0.05 ng/mL Normal 0.00-0.10 [facility] Comment on above: Result Comment: Susp ected [...] and initial PCT<0.5ng/mL Performed By: #### L [id number] #### [facility] ([employer]) [address] [place] [address] PROTIME-INRon 01-25-2024 INR IN PPP BY COAGULATION ASSAY 1.24 High 0.90-1.10 [facility] Comment on above: Result Comment: ACCC P [...] RANGE. CHEST 1995;108:[id number]. Performed By: #### L [id number] #### [facility] (BEAKER) [address] [place] [address] PROTHROMBIN TIME (PT) IN PPP BY COAGULATION ASSAY 15.7 Seconds High 12.3-14.8 [facility] Comment on above: Performed By: #### L [id number] #### [facility] ([facility]) [address] [place] [address] TROPONIN Ion 01-25-2024 Troponin I.cardiac [Mass/Vol] 0.84 ng/mL Critically high 0.00-0.04 [facility] Comment on above: Performed By: #### L [id number] ####[facility] ([facility])[address] [place] [address] 30on 01-24-2024 30 The patient is Moder [...] and maintained or improved Outcome: Progressing Normal [facility] BASIC METABOLIC PANELon 12-27 Anion gap [Moles/Vol] 13 mmol/L Normal 7-20 [facility] Comment on above: Performed By: #### L [id number] ####[facility] ([facility])[address] [place] [address] Calcium [Mass/Vol] 8.8 mg/dL Normal 8.6-10.3 [facility] Comment on above: Performed By: #### L [id number] ####[facility] ([facility])[address] [place] [address] Chloride [Moles/Vol] 103 mmol/L Normal 98-107 [facility] Comment on above: Performed By: #### L [id number] ####[facility] ([facility])[address] [place] [address] CO2 [Moles/Vol] 25 mmol/L Normal 21-31 [facility] Comment on above: Performed By: #### L [id number] ####[facility] ([facility])[address] [place] [address] Creatinine [Mass/Vol] 1.26 mg/dL Normal 0.70-1.30 [facility] Comment on above: Performed By: #### L [id number] ####[facility] ([facility])[address] [place] [address] GLOMERULAR FILTRATION RATE ML/MIN/1.73 SQ M.PREDICTED 58.4 mL/min/1.73m*2 Low >60.0 [facility] Comment on above: Result Comment: The [facility]???s estimated glomerular filtration rate (eGFR) will no [...] of individuals. Performed By: #### L [id number] ####[facility] ([facility])[address] [place] [address] Glucose [Mass/Vol] 184 mg/dL High 70-100 [facility] Comment on above: Performed By: #### L [id number] ####[facility] ([facility])[address] [place] [address] Potassium [Moles/Vol] 4.3 mmol/L Normal 3.5-5.1 [facility] Comment on above: Performed By: #### L [id number] ####[facility] ([facility])[address] [place] [address] Sodium [Moles/Vol] 137 mmol/L Normal 136-145 [facility] Comment on above: Performed By: #### L [id number] ####[facility] ([facility])[address] [place] [address] Urea nitrogen [Mass/Vol] 21 mg/dL Normal 7-25 [facility] Comment on above: Performed By: #### L [id number] ####[facility] (BEAKER)[address] [place] [address] UREA NITROGEN/CREATININE (MASS RATIO) IN SER/PLAS 16.7 Normal [facility] Comment on above: Performed By: #### L [id number] ####[facility] ([facility])[address] [place] [place] [address] HPon 01-24-2024 HP History Of Present I [...] In April 2019 he presented to the [facility] with atrial fibrillation with controlled [...] cardiac remod (more content not included)... Normal [facility] MRSA/MSSA DNA NASALon 2023 MRSA DNA Negative Normal Negative [facility] Comment on above: Order Comment: Testi ng [...] preclude nasal colonization. Performed By: #### L [id number] ####[facility] (BEAKER)[address] [place] [address] MSSA DNA Negative Normal Negative [facility] Comment on above: Order Comment: Testi ng [...] preclude nasal colonization. Performed By: #### L [id number] ####[facility] (BEAKER)[address] [place] [address] NURSNOTEon 01-24-2024 NURSNOTE CHG wipes completed. Normal [facility] POCT GLUCOSE METER UNSOLICIT ED RESULTSon 01-24-2024 Glucose [Mass/Vol] 146 mg/dL High 70-105 [facility] Comment on above: Order Comment: Waive d Testing in the ED is performed under the ED CLIA certificate #[id number]. Result Comment: [email or web address] Performed By: #### L [id number] #### [facility] ([facility]AKER) [address] [place] [address] TYPE AND SCREENon 01-24-2024 AB SCREEN Negative Normal [facility] Comment on above: Performed By: #### L [id number] ####[facility], ABO group Nom (Bld) A Normal [facility] Comment on above: Performed By: #### L [id number] ####[facility], RH TYPE IN BLOOD Positive Normal [facility] Comment on above: Performed By: #### L [id number] ####[facility], Basophils Auto (Bld) [#/Vol] on 01-18-2024 Basophils (Bld) [#/Vol] 0.0 10 3/uL 0.0-0.1 [facility] Basophils/100 WBC Auto (Bld) on 01-18-2024 Basophils/100 WBC (Bld) 0.4 % 0.2-2.0 [facility] Eosinophils/100 WBC Auto (Bl d)on 01-18-2024 Eosinophils/100 WBC (Bld) 2.3 % 0.9-7.0 [facility] Erythrocyte distribution wid th Auto (RBC) [Ratio]on 01-18-2024 Erythrocyte distribution width (RBC) [Ratio] 13.6 % 11.0-15.0 [facility] Estimated glomerular filtrat ion rate (GFR) non- Americanon 01-18-2024 GFR/1.73 sq M.predicted among non-blacks MDRD (S/P/Bld) [Vol rate/Area] 48 mL/min/{1.73_m2} Low >=60 [facility] Hematocrit Auto (Bld) [Volum e fraction]on 01-18-2024 Hematocrit (Bld) [Volume fraction] 37.0 % Low 42.0-54.0 [facility] Hemoglobin [Mass/volume] in Bloodon 01-18-2024 Hemoglobin (Bld) [Mass/Vol] 11.7 g/dL Low 14.0-18.0 [facility] Laboratory - Chemistry and C hemistry - challengeon 01-18-2024 Calcium [Mass/Vol] 8.6 mg/dL 8.5-10.1 [facility] Chloride [Moles/Vol] 103 mmol/L 98-107 [facility] CO2 [Moles/Vol] 30.4 mmol/L 21.0-32.0 [facility] Creatinine [Mass/Vol] 1.44 mg/dL High 0.70-1.30 [facility] GFR/1.73 sq M.predicted MDRD (S/P/Bld) [Vol rate/Area] 58 mL/min/{1.73_m2} Low >=60 [facility] Glucose [Mass/Vol] 140 mg/dL High 74-106 [facility] Potassium [Moles/Vol] 4.5 mmol/L 3.5-5.1 [facility] Sodium [Moles/Vol] 140 mmol/L 136-145 [facility] Urea nitrogen [Mass/Vol] 17.0 mg/dL 7.0-18.0 [facility] Urea nitrogen/Creatinine [Mass ratio] 11.8 mg/mg [facility] Laboratory - Hematology and Cell countson 01-18-2024 Immature granulocytes/100 WBC (Bld) 0.0 % 0.0-0.5 [facility] Leukocytes [#/volume] correc iván for nucleated erythrocytes in Blood by Automated counon 01-18-2024 WBC corrected for nucl RBC Auto (Bld) [#/Vol] 4.8 10 3/uL 4.0-11.0 [facility] Lymphocytes Auto (Bld) [#/Vo l]on 01-18-2024 Lymphocytes (Bld) [#/Vol] 1.6 10 3/uL 1.2-3.8 [facility] Lymphocytes/100 WBC Auto (Bl d)on 01-18-2024 Lymphocytes/100 WBC (Bld) 33.8 % 20.5-60.0 [facility] MCH Auto (RBC) [Entitic mass ]on 01-18-2024 MCH (RBC) [Entitic mass] 28.3 pg 25.9-34.0 [facility] MCHC Auto (RBC) [Mass/Vol]on 01-18-2024 MCHC (RBC) [Mass/Vol] 31.6 g/dL 29.9-35.2 [facility] MCV Auto (RBC) [Entitic vol] on 01-18-2024 MCV (RBC) [Entitic vol] 89.6 fL 80.0-94.0 [facility] Monocytes Auto (Bld) [#/Vol] on 01-18-2024 Monocytes (Bld) [#/Vol] 0.6 10 3/uL 0.3-0.8 [facility] Monocytes/100 WBC Auto (Bld) on 01-18-2024 Monocytes/100 WBC (Bld) 11.8 % 1.7-12.0 [facility] Neutrophils Auto (Bld) [#/Vo l]on 01-18-2024 Neutrophils (Bld) [#/Vol] 2.5 10 3/uL 1.4-6.5 [facility] Neutrophils/100 WBC Auto (Bl d)on 01-18-2024 Neutrophils/100 WBC (Bld) 51.7 % 43.0-75.0 [facility] No Panel Informationon 01-17 Eosinophils # (Auto) 0.1 10 3/uL 0.0-0.7 [facility] Immature Granulocyte # (Auto) 0.00 10 3/uL 0.00-0.03 [facility] Orders Onlyon 01-18-2024 Orders Only [id number] Amina Goncalves 1945 M Date Provider Department Center 01/18/2024 AMY PARRISH [facility] VASC LAB [facility] HeartVAS Family History Problem Relation Age of Onset Cancer Mother Heart attack Other Family Status - Relation Status Age at Mother Other Normal [facility] Platelet mean volume Auto (B ld) [Entitic vol]on 01-18-2024 Platelet mean volume (Bld) [Entitic vol] 11.4 fL 9.5-13.5 [facility] Platelets Auto (Bld) [#/Vol] on 01-18-2024 Platelets (Bld) [#/Vol] 186 10 3/uL 150-450 [facility] RBC Auto (Bld) [#/Vol]on RBC (Bld) [#/Vol] 4.13 10 6/uL Low 4.70-6.10 [facility] Serum or plasma anion gap de terminationon 01-18-2024 Anion gap [Moles/Vol] 11.1 mmol/L [facility] Prep for Procedureon 024 Prep for Procedure [id number] Amina Goncalves R 1945 M Date Provider Department Center 11/24/2023 MADISON MOSES Family History Problem Relation Age of Onset Cancer Mother Heart attack Other Family Status - Relation Status Age at Mother Other Normal [facility] Optical coherence tomography study reporton 10-28-2023 [facility] Radiology Study observation (narrative) [facility] Prep for Procedureon 024 Prep for Procedure [id number] Amina Goncalves R 1945 M Date Provider Department Center 10/27/2023 MADISON MOSES TIMO Cline Family History Problem Relation Age of Onset Cancer Mother Heart attack Other Family Status - Relation Status Age at Mother Other Normal [facility] Orders Onlyon 10-25-2023 Orders Only [id number] Amina Goncalves R 1945 M Date Provider Department Center 10/25/2023 MADISON MOSES Family History Problem Relation Age of Onset Cancer Mother Heart attack Other Family Status - Relation Status Age at Mother Other Normal [facility] Office Visiton 10-24-2023 Follow-up visit [id number] Amina Goncalves 1945 Date Provider Department Center 10/24/2023 MAGGY LEBRON TIMO Rosalina Santiago Family History Problem Relation Age of Onset Cancer Mother Heart attack Other Family Status - Relation Status Age at Mother Other Level of Service:52523 [place] OFFICE/OUTPATIENT ESTABLISHED LOW MDM 20 MIN Normal [facility] Prep for Procedureon 024 Prep for Procedure [id number] Amina Goncalves 1945 M Date Provider Department Center 10/17/2023 MADISON MOSES Family History Problem Relation Age of Onset Cancer Mother Heart attack Other Family Status - Relation Status Age at Mother Other [facility] 36on 10-05-2023 36 Patient underwent hi s pre-LAAO JESSICA. He is a candidate for an occlusive device. Spoke to patient regarding next steps. He needs to have shared decision documentation with another physician. He will be seeing his primary event organizer in a couple weeks. Discussed possible procedure date of 11/01/2023. He states he would consider this and would further discuss with his daughter. Of note, he is planning a trip to [place] for 1 month mid October and he will return the end of November. Normal [facility] Telephoneon 10-05-2023 Telephone [id number] Amina Goncalves Yehuda 1945 Date Provider Department [place] 10/05/2023 MADISON MOSES Family History Problem Relation Age of Onset Cancer Mother Heart attack Other Family Status - Relation Status Age at Mother Other Normal [facility] MELISSASon 09-16-2023 ANES ------ -- Attestation signed by [...] 09/16/23 0900 Procedure: TRANSESOPHAGEAL ECHO (JESSICA) Location: [facility] Vascular Lab Clinical information reviewed: Allergies Meds Physical Exam Airway Mallampati: II Cardiovascular Rhythm: regular Rate: normal Dental Pulmonary Breath sounds clear to auscultation Abdominal Anesthesia Plan ASA 3 other (Moderate sedation) Anesthetic plan and risks discussed with patient. Use of blood products discussed with patient who. Plan discussed with fellow and attending. Additional Equipment Requests Normal [facility] HPon 09-16-2023 ------ -- Attestation signed by [...] there are no changes to the H&P. [facility] NURSNOTEon 09-16-2023 NURSNOTE RN educated pt on d/ c instructions. RN encouraged pt to voice any questions or concerns. Pt verbalizes no questions or concerns at this time. Normal [facility] NURSNOTE Bedside swallow stud y completed and passed. [facility] Telephoneon 09-15-2023 Telephone [id number] Amina Goncalves 1945 M Date Provider Department Center 09/15/2023 RUSTY ENGLAND [facility] VASC LAB MD HeartVAS Family History Problem Relation Age of Onset Cancer Mother Heart attack Other Family Status - Relation Status Age at Mother Other [facility] HPon 09-06-[address] [facility] Cardiology - [facility] Clinic Subjective Tito Goncalves is a 78 y.o. year old male patient being seen to discuss LAAO. He presented to [facility] ED in Jun 2023 for fall. [...] In April 2019 he presented to the [facility] with atrial fibrillation with controlled [...] 1 tablet (more content not included)... Normal [facility] Office Visiton 09-06-2023 Follow-up visit [id number] Amina Goncalves 1945 M Date Provider Department Center 09/06/2023 OLIVER RUELAS TIMO [facility] Family History Problem Relation Age of Onset Cancer Mother Heart attack Other Family Status - Relation Status Age at Mother Other Level of Service:82785 [place] OFFICE/OUTPATIENT ESTABLISHED HIGH MDM 40-[address] [facility] Coding Summaryon 07-11-2023 Coding Summary HTMLBase 64 CafrravyCVv8qOr+PGhlYWQ+PE 5TGVXjW02tpKTfcV7aL0TXMKgL HuzuRLOPPBzUQoKwanXdKX9vjA NjZXJu IC8+JZ2gSEZkNvqruWQsp4S2xX H1S55grb2kDAhhxSF2BPXxQjWh xkfwu6mtsKn2SMfoJwpuIeRs EJYggH47JES6tQ37Gx95tQUqxN Gmm5dwlIy1McCcEUXvDIU4bPsd DBcbs8GfXKBnG29pbHIrv6M6 RVAabLkpsFTfXtQkkJQ8yE0tDI fynxbam2pomkgjDzn4xw29lOUq p9X0lVW0I4BfnmV2UJXcyQTh BmbmzJHGbD6mdyoyh6mjdcikWp BiNGRrLSo6EQa6YRUsqEmsCjCl JA61LRH0RVOfecBrD9UxPDAb aPnxRjQ4j1D5Dj0YT2UZWzkyM0 VNTUFSWTwvdGQ+CF80uj29Y9Ee CipxWqn5IXRzYSB5aAH9jS2t ZWGyZJeol3O6jOS3Y8KnhiBhzq 8ov0itLXXvLGxwF04cgWNmm3A6 CIQwdKJ5PQVvtUsvUlPvnO34 Oyc+DUVwoFcgc0EbDhsfk7hbf6 mogRi5ZltrIFJyouRthJmxCSH0 u5KwUd1iCCQhbGQ6uNE1qR6y EpBcSgR4FXaqU227HqKsgWVbOv ohZ74uV5UaxDT+GHZlTee3XZXn bZkpSV0uL3YrPZIyhwfquJDs aRbgBI7iBFYsfjklXQQyoY0eNG PdZ8w5WxWsObZ7YJxkE1JoWKLh bpckCq10sI6aSeQlElH8GSfd U1ZpnoH2WHUilBUgEAohMNN6K2 6dy3Q1DHBbLUXtGHN1pSE5bE7f bGlnbjogbGVmdDsgdmVydGlj YSayNAnfW046POQjuKslGxMiSB luZyBEYXRlOiAgMTAvMTYvMjAy MzwvdGQ+VKBbSTV4uEhmFHIi hEAtCGqqFd4skEvcxYwcQC5uAH TtbhpaGUJcpE5zUTUhkPJipLra QC5bGJNaasjfy329BjMuQMT1 AORdaQBuI1UdfG7oKaPcDYPgYP SnL1SulDTaLIlrG755IBjjIqH0 WFDbwpQhT0MlZRDraQlfSvV6 y5J9Zc6Rw5EckxupT7SeaYVxPk EeVaesTLb8L7EsWjlydXY+PC90 RUOaSP93SZj0AIK7rLyqURqb XMTjW6HkqX1mHoArCKJuIUZyJn c+PHRhYmxlIHdpZHRoPScxMDAl ZyAuxSemWE6bOe2fVVRzUYVg lEsgrWIwYuMii2biMCMuXVdfOH 3njPywG3KkzMZ4ZSSjc3n7Cs51 I21dR6ZmyFS+BYSceTD1yBT9 zT2rZfBwUoK5KBnoC735SqXphZ TtZqhgz0zsv6wdgSq7GnJ0IERk vkBpnCehKPR8w0YqDv73H47m IHdpZHRoPSIxNSUiIHZhbGlnbj 8ifC5zUs0+VBNotME6cIE4sM7c CeApThG8WGreO321XkCefXHq Dtzpj9hnj4dsiUg8HsErUIUopc NwsLihMYB7e1JuRv97A6WuzStr i6UhQie2kk39zFHie0O4kBV9 Z1WrPTNdcswudOZhkPslGU9tJF VhlefuSRKulN5uPAAcQ4p8RkKm OlI9NTahN8YphzA9ZTJdqRHb SVZnnNLMcN9rkgnqx7afbmzwSm OqSIIrKFc8HVt7BAZtaZfpYlQr CIT2MgA6SXM5wRItlC3huUlh qqhwmF2pNgn+ILJ8nKJplRKFPK 1lOjwvdGQ+HLEtVDB6zNpwJWyb OGLgxL6tVKAmB8a0LjAwIhI0 BDqvL6SieoZ9NEUtyTChKKIrsE HHeM8hrzxlz8uboawzWvAlSFSp NBr0ZOa5JKPidDfaJaKsKDC0 KiY9FIK5vVZibP9erQllssnchB 9wOyc+EkxezHazVYD1AEw1S8Fx Qps3OUPjzOpkVA7utULdRPkn Wi8yePiheJdsJB5xBFSwbxxfl5 72IlHht4hhXYDidXNbCIxfYMG0 U33sd0U2FMZeNXYsVUZ9hGZ3 lW5fgVbalsnibEYsqTeykpZksX aeAKyhZDpbK397IWVlnDkxCzNz OXm4A9CyZeh9XVHogMbbRP8h gMJqYUnoCa3uxXpsgZncGE6oVN Lkhqqjg744FaAzd5ygEHSbmVNn ZOvyVEI8L18ex5T6DMGuQRTj UJR9lQO0fS1ieExmyswntYFrzH wiboHgxTawRQtwDNpxU350SXEs qWydLcMczLz1X6MfEzx3NQYl iVnpBY8kyRQhBHcjLn3dfJgjsT ruIJ2aGDCgguesd452FoIru7gh BHTqhNKiBZwrXZT2R12hw4B3 THBhKOUsDNV3wXR3pD6brRqyrf ogbGVmdDsgdmVydGljYWwtYWxp V103OPLdhItrBtQpsOuboySj AEcuTOl4B0WhHdpawYU+PC90YW YzHN32oRKhqQYrt9rgjIq5JtRj MRUqWHS6mFvvQFvfr1IhKLYf U70anWArz9P6AAGcnVociWWoHt AdgUB9bY6cTWbpzvlzo2ockmhe Vgvse5hvvf07iB89J15hUQmf CJYxYWTgFGCtUWMreVgcdc1ebX 9wIi8+STBgpOV6nSQ0nD6zRIXb WlF1ABdiO635EvVplWDfTxdc q6jab1wwxBr4AgZ0DHQprgDwzV wlXKR3r6QuVo37Z99gTFgzWJNq VWOjMPCfJXIsdJxwmi5abN2j Ii8+FCKwaXO3tOR2oC8xToEyHm S0LQwwC533EbQxaZZyPwsyX90x B0StgTB+TKGyFhi9TRVaqFqz BP5paGVvWQukMm7vUVD1BmVyIi YkZDgaY8ToOMZjmnxdcnusrYB7 VKJgTCEnmO79Id6fpRkhGKXh fWCRhV5dfqnbg6johfemEzHbYI VgZLp2SUo0TCOffDomXzDfILL7 FbC1WRS8bUZfuY1ziEorbmld eA0dL2HcDUTfedpmZn44bC9tPj FgRzD1MScqTpy+B5POSTNvKFIK H1UHLTITTSOYJMBRDW81RW90 yRAif6I7nRS4L5WsKSLgdwckap nhvWN5LNPoHTJolH47vQDjVMkb Yq7mz5S9j187SYOtOCKwkN75 Jb4deQrsBMQjmQQCuM9qjtfla5 hjtihnLrFdKCNnITi4TUj8DLCi rDayBwRwPDP5ViO4AHF4rWNq mT7ciIjkndewiG0iOcd+MDQvMj krYBe8LifuiCH+DQCdUQE0rRmb GBnjKOKxcC6nEQVtI9n2ZdWl TqJ6IUqeM3YpDDHospvoZc36tW 4xEvLdYzW8WUqyK5ZcjtS1GNWv jWMwMPtiOYK6F94ao4X3ZKRy TISrBAA0nVJ9iR5ckPzudrbrfA MhtXvljvYzpGblHRjeIPkhP331 OSExhIzpWwx5PRlnVGUuBR02 VK56sEMvy0R2lNN7I6DeTBHwbv qkhpchdRG8BYPcSLEwyO15gNUl FKzjGa3ww2U3a314GQPiQIUq eG18Zu8drUfsDRDvoOXIuU5gth grx0jvfuybCrYgUMPpZPk7DYn2 GXHzwOsrViPnRWF0PdZ7VAL9 aTFyzA6qzKvidqposU7nCjp+TU FMRTwvdGQ+RJVaGPT8eZwlDZhg JMPdiM0uCGLtI4e8NsQaQbV2 RMeiG6SfXTLvgkdcAt75nI0hWd GvVuF2HOldE3SafhQ7OEVhmJGa IWmdZIA5W18ma9W9ZMTkETZi EHN7cWA0cM7rhAapughvsAAumQ lwwxLywPtpNZzrAVzyT588DFUv eMpwJnTzTWQjDG4yuBarlBV+ BH97ik07H6MtZqkfLeq4GIYwBF B8uSR6yB7wVVHqWFlqu1H0tQI4 G0JlnlTnda2bt0ojLTSbFBog X13sjHUjt2C8WCBcuFM4KBCrrE gxXqWsqS88Pxv+EYSvlZxnu2Es Oenlw7kxu3ynoNz6IhSaIQDz gtUfsQvlRLS3d7JmLu10V93bRY erCAXsGJBpAHCySIOtqPmdlk3e eV8mFa5+HUWsdTS4cQV8bA0g AtIsKpI4XClsR504StSqtGGbBy kur5icb7oyaRt2CqXoCYHflyJg jHzeHBO4r2RgTn09P8ZfxYeo n3UiDkm7xy45yGYdz3E6aSS2L4 OiYGZfzbqjtVNidEmsIU4mBKEc cfhlHTIjbP5dYRYgW5x8McSb QkE5RLgyG5MugyY8QHFkoQKuLY LkrLCKaG1nfxoxd6vvpcwyVvVv ZIOhHQb3QIc4OBCjnTytKcEa SUD0AcC5ZRF0gWPuiK8unJmjrv veaD1yTuf+ZRw5h8prkWYePR0l aGR0NO26BF38uZRcl0O2lJO9 I6CoCTDhgkqevxdjkME3BNPfJD VruE91Jl3zdDqaJw1hAMRgMMF2 JAWmhVXdQ4GsbY8zEpTxPOAy GTIgA4IvkZVuWUkbP546ECgeUe W3MOJfrbQfY1PrSMVhtRdaEjB0 v4E9Jq1PST05ES15TW83xOVf s2J4aWB6T1NxIUBdodfbhipptP W8HJLbPESreL51Tq4rnRluFi6s UOXaXOL2UAYqfWAfS8QsxW4j TcXaZFStGHFuV2TgzMCjKDycK8 75QEklZkS0YEZejzLxE9KgDOFx fMjfJiW0f4M7Eb7VUw71GY45 PB28qEBjo6Z8lEI4B6PaXYBxki ibggdfbOV8MWLdLREuwE75Vj7s jCtzVw1uJLUkHZS7GVSjqBZi R4EkzJ6bRzZuANQeRXDwK0SyfF NvZOviO438NIthOwF2TZGbigIb H1XlVBLhxBtvAjF2j9P4Ce8H FZhttoy1T3TfArfhoCD+PC90YW WbIL99eIRmvFBgh2wezUt3ZcUg VRAjGFU2eOquLBatr1PzLNOi Y29 (more content not included)... [facility] ED Clinical Summaryon 2022 ED Clinical Summary [facility] Emergency Department [address] [place] [id number] ED Clinical Summary PERSON INFORMATION Name: TITO GONCALVES Age: 78 Years Sex: MALE : 1945 MRN: Acct#: Visit Reason: Eye Injury; Fall; FALL/LT EYE LAC Arrival: 07/05/2023 16:48:26 Discharge: 07/05/2023 18:40:00 LOS: 000 01:52 Check In: 07/05/2023 16:48:26 Checkout:07/05/2023 18:40:00 Address: [facility] [id number] PCP: Augustine Metz PROVIDER INFORMATION Provider Role [...] Patient/family/caregiver verbalizes understanding of instructions given Comment: [facility] ED Patient Education Noteon 07-05-2023 ED Patient Education Note Education Materials [facility] ED Patient Summaryon 023 ED Patient Summary [facility] Emergency Department [address] [place] [id number] PATIENT DISCHARGE INSTRUCTIONS Patient Information Name: TITO GONCALVES Age: 78 Years Date of : 1945 Reason For Visit: Eye Injury; Fall; FALL/LT EYE LAC Arrival Time: 07/05/2023 16:48:26 Primary Care Physician: Augustine Metz Attending Physician: Colin Song DO Comment: Visit Diagnosis: Diagnoses This Visit Eye Injury ([id number]) Fall ([id number]) The Pharmacy at [facility] is open Tuesday through Tuesday [...] alcohol and/or drug addiction problems; contact the [facility] 18/04 Crisis Hotline -Text 5LUOT ge [phone]. If you received any narcotics, sedation, or [...] and treatment you received today in the [facility] Emergency Department were for an urgent problem and are not intended as complete care. It is important for you to follow up with a doctor, nurse practitioner, or physician?s addictions counselor assistant for ongoing care. If your symptoms [...] so we can reach you if necessary. [facility] Emergency Department has provided you with a complete list of medications post discharge. Please inform your primary care coordinator/provider of your visit and for further [...] to relieve symptom (more content not included)... [facility] Phone Msgon 02-01-2023 Phone Msg - From: [...] mailed to his address on file. Normal [facility] CBC AUTO DIFFon 2023 BASO # 0.0 103/ul Normal 0.0-0.1 [facility] Comment on above: Performed By: #### C BC #### [facility] [address] [place] [address] Dr. Arjun Menjivar Basophils/100 WBC (Bld) 0.4 % Normal 0.2-2.0 [facility] Comment on above: Performed By: #### C BC #### [facility] [address] [address] [address] Arjun Menjivar EO # 0.1 103/ul Normal 0.0-0.7 [facility] Comment on above: Performed By: #### C BC #### [facility] [address] [address] [address] Arjun Menjivar Eosinophils/100 WBC (Bld) 1.5 % Normal 0.9-7.0 [facility] Comment on above: Performed By: #### C BC #### [facility] [address] [address] [address] Arjun Menjivar Erythrocyte distribution width (RBC) [Ratio] 13.7 % Normal 11.0-15.0 [facility] Comment on above: Performed By: #### C BC #### [facility] [address] [place] [address] Dr. Arjun Menjivar Hematocrit (Bld) [Volume fraction] 41.9 % Critically low 42.0-54.0 [facility] Comment on above: Performed By: #### C BC #### [facility] [address] [address] [address] Arjun Menjivar Hemoglobin (Bld) [Mass/Vol] 13.7 g/dL Critically low 14.0-18.0 [facility] Comment on above: Performed By: #### C BC #### [facility] [address] [address] [address] Arjun Menjivar IG # 0.02 10e3/ul Normal 0.00-0.03 [facility] Comment on above: Performed By: #### C BC #### [facility] [address] [address] [address] Arjun Menjivar IG % 0.3 % Normal 0.0-0.5 [facility] Comment on above: Performed By: #### C BC #### [facility] [address] [place] [address] Dr. Arjun Menjivar LYMPH # 1.4 103/ul Normal 1.2-3.8 [facility] Comment on above: Performed By: #### C BC #### [facility] [address] [place] [address] Dr. Arjun Menjivar Lymphocytes/100 WBC (Bld) 16.9 % Critically low 20.5-60.0 [facility] Comment on above: Performed By: #### C BC #### [facility] [address] [place] [address] Dr. Arjun Menjivar MANUAL DIFF REQ NO Normal [facility] Comment on above: Performed By: #### C BC #### [facility] [address] [address] [address] Arjun Menjivar MCH (RBC) [Entitic mass] 28.8 pg Normal 25.9-34.0 [facility] Comment on above: Performed By: #### C BC #### [facility] [address] [address] [address] Arjun Menjivar MCHC (RBC) [Mass/Vol] 32.7 g/dL Normal 29.9-35.2 [facility] Comment on above: Performed By: #### C BC #### [facility] [address] [address] [address] Arjun Menjivar MCV (RBC) [Entitic vol] 88.2 fL Normal 80.0-94.0 [facility] Comment on above: Performed By: #### C BC #### [facility] [address] [address] [address] Arjun Menjivar MONO # 0.5 103/ul Normal 0.3-0.8 [facility] Comment on above: Performed By: #### C BC #### [facility] [address] [place] [address] Dr. Arjun Menjivar Monocytes/100 WBC (Bld) 5.9 % Normal 1.7-12.0 [facility] Comment on above: Performed By: #### C BC #### [facility] [address] [place] [address] Dr. Arjun Menjivar NEUT # 6.0 103/ul Normal 1.4-6.5 [facility] Comment on above: Performed By: #### C BC #### [facility] [address] [place] [address] Dr. Arjun Menjivar Neutrophils/100 WBC (Bld) 75.0 % Normal 43.0-75.0 [facility] Comment on above: Performed By: #### C BC #### [facility] [address] [place] [address] Dr. Arjun Menjivar Platelet mean volume (Bld) [Entitic vol] 11.4 fL Normal 9.5-13.5 [facility] Comment on above: Performed By: #### C BC #### [facility] [address] [place] [address] Dr. Arjun Menjivar PLT 169 103/ul Normal 150-450 [facility] Comment on above: Performed By: #### C BC #### [facility] [address] [place] [address] Dr. Arjun Menjivar RBC 4.75 106/ul Normal 4.70-6.10 [facility] Comment on above: Performed By: #### C BC #### [facility] [address] [place], [place] [address] Dr. Arjun Menjivar WBC 8.0 103/ul Normal 4.0-11.0 [facility] Comment on above: Performed By: #### C #### [facility] [address] [place] [address] CSPINE WO CONon CT CSPINE WO CON EXAMINATION: CT HEAD [...] SALINA ESPINOZA Date: 2023 16:25 Normal [facility] CT HEAD WO CONon 2023 [...] TOSHIA ANDRES Date: 2023 21:30 Normal [facility] PROF 14(COMP METB)on 023 Albumin [Mass/Vol] 3.7 g/dL Normal 3.4-5.0 [facility] Comment on above: Performed By: #### C MP ####[facility] [address] [id number] Menjivar Albumin/Globulin [Mass ratio] 1.1 {ratio} Normal [facility] Comment on above: Performed By: #### C MP ####[facility] [address] [place], [place] [address]GwMago Menjivar ALP [Catalytic activity/Vol] 87 U/L Normal 46-116 [facility] Comment on above: Performed By: #### C MP ####[facility] [address] [address]Dr. Arjun Menjivar ALT [Catalytic activity/Vol] 26 U/L Normal 16-63 [facility] Comment on above: Performed By: #### C MP ####[facility] [address] [id number][address] Arjun Menjivar Anion gap [Moles/Vol] 9.2 mmol/L Normal [facility] Comment on above: Performed By: #### C MP ####[facility] [address] [place], [place] [address]Dr. Arjun Menjivar AST [Catalytic activity/Vol] 20 U/L Normal 15-37 [facility] Comment on above: Performed By: #### C MP ####[facility] [address] [place], [place] [address]Dr. Arjun Otto Bilirubin [Mass/Vol] 0.4 mg/dL Normal 0.2-1.0 [facility] Comment on above: Performed By: #### C MP ####[facility] [address] [place], [place] [address]Dr. Arjun Menjivar Calcium [Mass/Vol] 9.1 mg/dL Normal 8.5-10.1 [facility] Comment on above: Performed By: #### C MP ####[facility] [address] [place], [place] [address]Dr. Arjun Menjivar Chloride [Moles/Vol] 105 mmol/L Normal 98-107 [facility] Comment on above: Performed By: #### C MP ####[facility] [address] [place], [place] [id number]. Arjun Menjivar CO2 [Moles/Vol] 28.9 mmol/L Normal 21.0-32.0 [facility] Comment on above: Performed By: #### C MP ####[facility] [address] [place] [id number]. Arjun Otto Creatinine [Mass/Vol] 1.23 mg/dL Normal 0.70-1.30 [facility] Comment on above: Performed By: #### C MP ####[facility] [address] [place] [id number]. Arjun Otto EGFR-AF FAROESE >60 Normal >=60 [facility] Comment on above: Performed By: #### C MP ####[facility] [address] [place] [id number]. Arjun Otto EGFR-NON AF FAROESE 57 mL/min/1.73m2 Critically low >=60 [facility] Comment on above: Performed By: #### C MP ####[facility] [address] [place] [id number]. Arjun Otto Globulin (S) [Mass/Vol] 3.4 g/dL Normal [facility] Comment on above: Performed By: #### C MP ####[facility] [address] [place] [id number]. Arjun Menjivar Glucose [Mass/Vol] 126 mg/dL Critically high 74-106 [facility] Comment on above: Performed By: #### C MP ####[facility] [address] [place] [id number]. Tannashukri Menjivar Potassium [Moles/Vol] 4.1 mmol/L Normal 3.5-5.1 [facility] Comment on above: Performed By: #### C MP ####[facility] [address] [place] [id number]. Arjun Menjivar Protein [Mass/Vol] 7.1 g/dL Normal 6.4-8.2 [facility] Comment on above: Performed By: #### C MP ####[facility] [address] [place] [id number]. Tannashukri Menjivar Sodium [Moles/Vol] 139 mmol/L Normal 136-145 [facility] Comment on above: Performed By: #### C MP ####[facility] [address] [place] [id number]. Arjun Menjivar Urea nitrogen [Mass/Vol] 12.0 mg/dL Normal 7.0-18.0 [facility] Comment on above: Performed By: #### C MP ####[facility] [address] [place] [address]Dr. Arjun Menjivar Urea nitrogen/Creatinine [Mass ratio] 9.8 mg/mg Normal [facility] Comment on above: Performed By: #### C MP ####[facility] [address] [place] [address]Dr. Arjun Menjivar PROTIMEon 2023 INR Coag (PPP) [Relative time] 2.90 {INR} Normal [facility] Comment on above: Performed By: #### P TT, PT ####[facility] [address] [place], [place] [address]Dr. Arjun Menjivar INR GUIDELINES SEE BELOW Normal [facility] Comment on above: Result Comment: PIOTR RED INR: 2.0 - 3.0 CONDITIONS NOT LISTED BELOW 2.5 - 3.5 FOR PROSTHETIC HEART VALVE REPLACEMENT 2.5 - 3.5 RECURRENT THROMBOSIS Performed By: #### P TT, PT ####[facility] [address] [place], [place] [address]Dr. Arjun Menjivar PT Coag (PPP) [Time] 28.9 s Critically high 9.0-11.6 [facility] Comment on above: Performed By: #### P TT, PT ####[facility] [address] [place] [address]Dr. Arjun Menjivar PTTon 2023 aPTT Coag (Bld) [Time] 37.7 s Critically high 22.3-36.2 [facility] Comment on above: Performed By: #### P TT, PT ####[facility] [address] [place], [place] [address]Dr. Arjun Menjivar XR PELVIS 1_2 VIEWSon 2022 [...] by: LINDA WANG Date: 2023 16:14 Normal [facility] XR ERCP 1 HOUR FLUOROon 10-27 XR ERCP 1 HOUR FLUORO Fluoroscopic guidance for ERCP 11/09/2022 6:30 AM ENVIRONMENTAL ASSOCIATE History: DR ORDER;OTHER REASON Tech notes: WHAT [...] by: Radha Haji MD 11/10/2022 8:01 AM ENVIRONMENTAL ASSOCIATE Technologist: EDITA Dictated By: RADHA HAJI MD Signed By: RADHA HAJI MD Signed Out: 11/10/22 09:01:42 Normal [facility] Anesthesiaon 11-09-2022 Anesthesia Patient: YE GONCALVES Age: [...] Postoperative hydration status: euvolemic. Notes: Normothermia. Normal [facility] Anesthesia Patient: YE GONCALVES Age: 77 years [...] release 325 mg = 1 caps, ORAL, [id number] trazodone = Desyrel 50 mg, ORAL, BID [...] available Procedure history: Endoscopic Retrograde Cholangiopancreatography (ERCP). (57157) on 11/09/2022 at 77 Years. Endoscopic Retrograde Cholangiopancreatography (ERCP). (38935) on 08/14/2021 at 76 Years. Esophagogastroduodenoscopy , flexible, transoral; with endoscopic ultrasound examination limited to the esophagus, stomach or duodenum, and adjacent structures (71175) on 07/10/2021 at 76 Years. Social History [...] palate, fauces, uvula visible). Assessment and Plan [place] Society of Anesthesiologists (ASA) physical status classification: [...] recognition software. Verbal misinterpretations may occur. Normal [facility] ENDO Initial Data VS HW Prep -Texton [...] Bettencourt RN - 11/09/2022 7:09 EST Normal [facility] ENDO Outpatient Admission Da taJamari 11-09-2022 ENDO Outpatient Admission Data-Text Endoscopy OP [...] Home : daughter Amna Surgeon Speak with Bender Machine Operator : Yes Voided : No Pain Level and Site : 0 Kaylyn Bettencourt RN - 11/09/2022 7:09 EST Present on Admission Medical Devices : None Medical Devices for Med Administration : None Kaylyn Bettencourt RN - 11/09/2022 7:09 EST Vikas Coma Eye Opening Response [place] : Spontaneously Best Verbal Response [place] : Oriented Best Motor Response [place] : Obeys simple commands [place] Coma Score : 15 Kaylyn Bettencourt RN - 11/09/2022 7:09 EST Advance Directive *Advance Directive : Yes Kaylyn Bettencourt RN 11/09/2022 7:09 EST Outpatient Fall Risk GEN_Fall Risk Indicators_49304 : Age 65 or greater, Medications altering equilibrium or cognitive judgement Fall Risk Band On : Yes Kaylyn Bettencourt RN - 11/09/2022 7:09 EST Screening-Safety Domestic Concerns : None Feeling Down, Depressed, Hopeless : Not at all Little Interest - Pleasure in Activities : Not at all Initial Depression Screen Score : 0 Depression Screening Score 0 : No Kaylyn Bettencourt RN - 11/09/2022 7:09 EST Education Barriers to Learning : None evident TeachBack Methodology : TeachBack, Demonstration, Explanation, Printed Material Rosalinda Bettencourt RNa - 11/09/2022 7:09 EST ENDO Education Activity Expectations : Verbalizes understanding Anesthesia/Sedation : Verbalizes understanding Endo Post Procedure Care : Verbalizes understanding Follow-Up Care/Appointment : Verbalizes understanding Safety : Verbalizes understanding Rosalinda Bettencourt RNa - 11/09/2022 7:09 EST Normal [facility] Inpatient Patient Summaryon 11-09-2022 Inpatient Patient Summary [facility] Discharge Instructions [address] [place] [address] \.br\(Patient Copy)\.br\ \.br\ \.br\Name: TITO GONCALVES : 1945 \.br\Diagnosis: \.br\ \.br\Allergies: sulfa drugs; penicillins; iodine topical\.br\ \.br\Registration Date: 11/09/22\.br\.br\.br\ \.br\ Current Date Time: 11/09/2022 08:44:54 \.br\ \.br\Address: [facility] [address] [facility] [address] \.br\Phone: [phone] \.br\ \.br\Primary Care Provider: \.br\Name: AUGUSTINE METZ\.br\Phone: [phone] \.br\ \.br\Thank you for choosing [facility] for your care. You are very important to us. Our goal is to demonstrate our high quality medical care and provide you with a very good patient experience.\.br\ You may receive a survey about our service. Please take the time to complete the survey and return it so we can continue to enhance our service.\.br\ Thank you again for allowing [facility] to care for your medical needs. If you have any questions about your care or follow up information please contact your doctor.\.br\.br\Follow-up Instructions\.br\.br\.br \With: Address: When: \.br\PUJA HOLBROOK, Gastroenterology [address] [address] [facility] [facility], [address] [place] [address]\.br\ Business (1) Within Call for Appointment \.br\.br\.br\.br\.br\P [...] ient education materials, if any, will display below\.br\[facility] ENDOSCOPY DEPARTMENT\.br\.br\FOLLOW UP CARE\.br\? For biopsy [...] tarry sto (more content not included)... Normal [facility] OR Nursing Record - Endoon 0 11-09-2022 OR Nursing Record - Endo OR Nursing Record - Endo Summary Primary Physician: PUJA HOLBROOK MD Finalized Date/Time: 11/09/22 08:27:34 Pt. Name: TITO GONCALVES Yehuda David/Sex: 1945 Male Med Rec #: [id number] Physician: Financial #: [id number] Pt. Type: A Room/Bed: / Admit/Disch: 11/09/22 06:11:45 - Institution: Case Times - Endo Entry 1 Patient In Room Time 11/09/22 07:43:00 Out Room Time 11/09/22 08:24:00 Anesthesia Facility Times Induction Time 11/09/22 07:48:00 Stop Time 11/09/22 08:15:00 [place] Protocol Yes Completed Surgery Start Time 11/09/22 [...] Minnie Saavedra RN Role Performed Surgeon Primary Cable Television Line Technician Primary Scrub Primary Time In 11/09/22 07:43:00 11/09/22 07:43:00 11/09/22 07:43:00 Time Out 11/09/22 08:24:00 11/09/22 08:24:00 11/09/22 08:24:00 Procedure ERCP(None) ERCP(None) ERCP(None) Last Modified By: Vitaly GAVIN, Martha Haider RN, Martha Barrera RN 11/09/22 08:21:41 11/09/22 08:21:41 11/09/22 08:21:41 Entry 4 Entry 5 Entry 6 Case Attendee Dena GAVIN, Josselin SPRINGER DO, JYOTI TOPETE Role Performed Cable Television Line Technician Secondary Anesthesiologist Primary Anesthesia Asst/CEMENTING BULK MATERIAL OPERATOR Time In 11/09/22 07:43:00 11/09/22 07:43:00 11/09/22 [...] 1 Dilators Balloon Scope Serial Number [id number] Last Modified By: Martha Haider RN 11/09/22 [...] 08:23 Martha Haider RN 11/09/22 08:27 Normal [facility] Operative Reporton Operative Report Patient: YE GONCALVES [...] Notes: Follow-up in clinic as scheduled. Normal [facility] Comment on above: Order Comment: Ida sevilla Attachment [id number] can be viewed in source system Missing Attachment [id number] can be viewed in source system Missing Attachment [id number] can be viewed in source system Missing Attachment [id number] can be viewed in source system Missing Attachment [id number] can be viewed in source system Missing Attachment [id number] can be viewed in source system Result Comment: PACU Phase I - Endoon 2022 PACU Phase I - Endo PACU Phase I - Endo Summary Primary Physician: PUJA HOLBROOK MD Finalized Date/Time: 11/09/22 08:55:35 Pt. Name: TITO GONCALVES/Sex: 1945 Male Med Rec #: [id number] Physician: Financial #: [id number] Pt. Type: A Room/Bed: / Admit/Disch: 11/09/22 06:11:45 - Institution: PACU I Case Times - Endo Entry 1 In PACU I 11/09/22 08:25:00 Ready for Transfer 11/09/22 09:19:00 Last Modified By: Sariah Schreiber RN 11/09/22 08:55:34 Finalized By: Sariah Schreiber RN Document Signatures Signed By: Sariah Schreiber RN 11/09/22 08:55 Normal [facility] POC Glucoseon 11-09-2022 Glucose [Mass/Vol] 131 mg/dL High 72-100 [facility] Comment on above: Performed By: #### 1 [id number] ####[facility] [address] [place] [address] Medical Director: Diogo Carcamo MD Preop - Endoon 11-09-2022 Preop - Endo Preop - Endo Summary Primary Physician: PUJA HOLBROOK MD Finalized Date/Time: 11/09/22 07:13:53 Pt. Name: TITO GONCALVES/Sex: 1945 Male Med Rec #: [id number] Physician: Financial #: [id number] Pt. Type: A Room/Bed: / Admit/Disch: 11/09/22 06:11:45 - Institution: Preop - Case Times - Endo Entry 1 Patient Arrival Time 11/09/22 06:31:00 Patient Ready for 11/09/22 07:11:00 Surgery Report Given to n/a Last Modified By: Kaylyn Bettencourt RN 11/09/22 07:13:51 Finalized By: Kaylyn Bettencourt RN Document Signatures Signed By: Kaylyn Bettencourt RN 11/09/22 07:13 Normal [facility] Provider Letter - Ambulatory on 11-09-2022 Provider Letter - Ambulatory AUGUSTINE METZ, [address] [facility] [facility] [place] [address] RE: TITO GONCALVES 11/09/2022 Dear AUGUSTINE METZ [...] - (11/09/2022) GI ERCP with Anesthesia Normal [facility] [place] Protocol/Pre-Proc TimeOut-Texton 11-09-2022 [place] Protocol/Pre-Proc TimeOut-Text [place] Protocol Entered On: 11/09/2022 7:13 EST Performed [...] : Procedure is Exempt From Marking Kaylyn Bettencorut RN - 11/09/2022 7:09 EST Surgery / [...] Haider RN - 11/09/2022 7:48 EST Normal [facility] Phone Msgoletty 11-08-2022 Phone Msg - From: Lori Cintron [...] Pt was asked to speak with his event organizer'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 From: Caren Carvalho RN To: Blanca Bazzi; Fela Alexandre; Sent: 10/28/2022 09:50:53 EST Subject: RE: Cardiac Clearance Caller Name: TITO GONCALVES; Caller Number: H He sees Dr. Metz sent LM for pt-Per Dr. Metz, pt can be off his Coumadin 5 days prior to his procedure. Normal [facility] AMB GI Physician Progress No irma 10-26-2022 AMB GI Physician Progress Note Chief Complaint Abdominal pain History of Present Illness 77-year-old male with recurrent history of choledocholithiasis last ERCP was done a year ago in [place] Patient had admission in hospital in [place] with fever and chills Patient has had [...] (10/26/22:56:) Ht/Wt Measurement Refused by Patient?2: No (10/26/22 14:56:) Depression Screening Scores Initial Depression Screen Score: [...] Est Pt Mod MDM / 30-39 min 08320, 10/26/2022 16:13:00 EST, Abdominal pain / Pancreatic cyst MR CP, 10/26/2022, Routine, PAIN, Abdominal pain / Pancreatic cyst 2. Pancreatic cyst K86.2 Pancreatic cyst stable very low CEA levels suggestive of simple serous cyst versus inflammatory cyst. Asymptomatic Ordered: AMB Follow - Up Appt Amb, 10/26/2022 16:13:00 EST, 4 weeks AMB Office/Outpt Est Pt Mod MDM / 30-39 min 33462, 10/26/2022 16:13:00 EST, Abdominal pain / Pancreatic [...] extended release, 325 mg= 1 caps, ORAL, [id number] trazodone = Desyrel, 50 mg, ORAL, BID [...] Care Team Primary Care Physician AUGUSTINE METZ [id number] Attending Physician PUJA HOLBROOK MD [phone] . Health Maintenance Pending (in the next year) There are no current recommendations pending Satisfied (in the past 1 year) There are no satisfied recommendations within the defined date range Normal [facility] Comprehensive Intake - Texto n 10-26-2022 Comprehensive [...] in, 183 cm) Body Mass Index Measured Yemeni : 18.85 kg/m2 BSA Yemeni : 1.79 m2 Ht/Wt Measurement Refused by [...] risk situation (congregated living, hemodialysis, infusion clinic, assisted, assisted living, chcf, homeless jail, etc.)? : No Lori Cintron MA - [...] Abnormal LFTs (liver function tests) (SNOMED CT :423013214 ) Name of Problem: Abnormal LFTs (liver function tests) ; Recorder: Blanca Bazzi; Confirmation: Confirmed ; Classification: Medical ; Code: 156355549 ; Contributor System: PowerChart ; Last Updated: 07/01/2021 12:43 EDT ; Life Cycle Date: 07/01/2021 ; Life Cycle Status: Active ; Vocabulary: SNOMED CT Arthritis (SNOMED CT :8263949 ) Name of Problem: Arthritis ; Recorder: Blanca Bazzi; Confirmation: Confirmed ; Classification: Medical ; Code: 7497575 ; Contributor System: PowerChart ; Last Updated: 07/01/2021 12:43 EDT ; Life Cycle Date: 07/01/2021 ; Life Cycle Status: Active ; Vocabulary: SNOMED CT Choledocholithiasis (SNOMED CT :886743717 ) Name of Problem: Choledocholithiasis ; Recorder: PUJA HOLBROOK MD; Confirmation: Confirmed ; Classification: Medical ; Code: 488370464 ; Contributor System: PowerChart ; Last Updated: 07/01/2021 13:27 EDT ; Life Cycle Date: 07/01/2021 ; Life Cycle Status: Active ; Responsible Provider: PUJA OHLBROOK MD; Vocabulary: SNOMED CT Diabetes (SNOMED CT :106960324 ) Name of Problem: Diabetes ; Recorder: Blanca Bazzi; Confirmation: Confirmed ; Classification: Medical ; Code: 254542562 ; Contributor System: PowerChart ; Last Updated: 07/01/2021 12:43 EDT ; Life Cycle Date: 07/01/2021 ; Life Cycle Status: Active ; Vocabulary: SNOMED CT Gallbladder disease (SNOMED CT :594142281 ) Name of Problem: Gallbladder disease ; Recorder: Blanca Bazzi; Confirmation: Confirmed ; Classification: Medical ; Code: 200461206 ; Contributor System: PowerChart ; Last Updated: 07/01/2021 12:44 EDT ; Life Cycle Date: 07/01/2021 ; Life Cycle Status: Active ; Vocabulary: SNOMED CT GERD (gastroesophageal reflux disease) (SNOMED CT :919443293 ) Name of Problem: GERD (gastroesophageal reflux disease) ; Recorder: Blanca Bazzi; Confirmation: Confirmed ; Classification: Medical ; Code: 927746191 ; Contributor System: eMazeMe ; Last Updated: 07/01/2021 12:44 EDT ; Life Cycle Date: 07/01/2021 ; Life Cycle Status: Active ; Vocabulary: SNOMED CT Hypertension (SNOMED CT :8912191122 ) Name of Problem: Hypertension ; Recorder: Blanca Bazzi; Confirmation: Confirmed ; Classification: Medical ; Code: 4029799569 ; Contributor System: eMazeMe ; Last Updated: 07/01/2021 12:44 EDT ; Life Cycle Date: 07/01/2021 ; Life Cycle Status: Active ; Vocabulary: SNOMED CT Irregular heart rhythm (SNOMED CT :782150558 ) Name of Problem: Irregular heart rhythm ; Recorder: Blanca Bazzi; Confirmation: Confirmed ; Classification: Medical (more content not included)... Normal [facility] Provider Letter - Ambulatory on 10-26-2022 Provider Letter - Ambulatory AUGUSTINE METZ, [address] [place] [address] RE: TITO GONCALVES 10/26/2022 Dear AUGUSTINE METZ [...] - (10/26/2022) *.AMB Office Visit Note Normal [facility] Phone Msgon 10-22-2022 Phone Msg - From: Lise Lawrence MA To: Maia Caren GAVIN; PUJA HOLBROOK MD; Sent: 10/22/2022 09:40:42 EST Subject: symptoms/appointment Caller Name: TITO GONCALVES; Caller Number: H Tito Berg daughter, Amna Sousa [phone] called. She is asking if he can [...] other dilemma is he is leaving for [place] on 11/13 for 6 weeks. From: Caren [...] him until December. He has moved to [facility] and Tito would be considered a new patient. His daughter did not feel he was acutely ill and that he can wait for the appointment next Tuesday. Normal [facility] GLYCOHEMOGLOBIN A1Con 2022 ADA RECOMMENDATION SEE BELOW Normal [facility] Comment on above: Result Comment: ADA RECOMMENDED LIMIT 4.0 - 6.0 ADA THERAPEUTIC TARGET < 7.0 ACTION SUGGESTED > 7.0 Performed By: #### A 1C ####[facility] [address] [place], [place] [address]PiDr. Arjun Menjivar Glucose [Mass/Vol] 163 mg/dL Normal [facility] Comment on above: Performed By: #### A 1C ####[facility] [address] [place], [place] [address]SwDr. Arjun Menjivar HbA1c (Bld) [Mass fraction] 7.3 % Critically high 4.5-6.2 [facility] Comment on above: Performed By: #### A 1C ####[facility] [address] [place], [place] [address]Ns. Arjun Menjivar Dermatopathologyon Dermatopathology Name: TITO GONCALVES Pathologist: KRISTEN OCONNOR MD Date of Procedure: 09/07/2022 Date Received: 09/07/2022 Date Reported 09/08/2022 Submitting Physician: MACARIO BUI MD, Location: [facility] Copy To/Referring/Attending: MD SABRA SIMS FINAL DIAGNOSIS 3 SLIDES, [facility] #[id number] (BX: 08/03/2022) A. 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 B. SKIN, RIGHT FAITH, SHAVE BIOPSY: MELANOMA IN SITU, PRESENT ON [...] M.D. CANCER SUMMARY REPORT A. 3 SLIDES, [facility] #[id number] (BX: 08/03/2022): SPECIMEN Procedure: Biopsy, shave Specimen Laterality: Right TUMOR Tumor Site: Skin of other and unspecified parts of face: Right mormon Histologic Type: Melanoma in situ, lentigo maligna [...] ADDITIONAL FINDINGS Additional Findings: None ADDITIONAL TESTING Stick Feeder Blocks: Normal Block: None Tumor Block: A1 Electronically Signed Out By KRISTEN OCONNOR MD/LEANDRO Diagnostic interpretation performed at [facility] [address] [address] [id number], [facility] [address] Microscopic Description: A. Microscopic examination reveals nests [...] OTHER Specimens Submitted As: A: 3 SLIDES, [facility] #[id number] (BX: 08/03/2022) Gross Description: Received for consultation from [facility] are three slides labeled [id number] (BX: 08/03/2022) along with the corresponding pathology report. Slide/Block Description 3 SLIDES, [id number]. Keep Slides: N Slides Returned: N Personal Consult: N Normal [facility] Comment on above: Performed By: #### D #### Dermatopathology GLYCOHEMOGLOBIN A1Con 2021 ADA RECOMMENDATION SEE BELOW Normal [facility] Comment on above: Result Comment: ADA RECOMMENDED LIMIT 4.0 - 6.0 ADA THERAPEUTIC TARGET < 7.0 ACTION SUGGESTED > 7.0 Performed By: #### A 1C ####[facility] [address] [place] [address]Dr. Arjun Menjivar Glucose [Mass/Vol] 151 mg/dL Normal [facility] Comment on above: Performed By: #### A 1C ####[facility] [address] [place] [address]Dr. Arjun Menjivar HbA1c (Bld) [Mass fraction] 6.9 % Critically high 4.5-6.2 [facility] Comment on above: Performed By: #### A 1C ####[facility] [address] [place] [address]DrMago Menjivar XR ESOPHAGUSon 06-28-2022 XR ESOPHAGUS EXAMINATION: [...] by: CARMEN PABLO Date: 2022-06-28 14:07 Normal [facility] XR MODIFIED BARIUM SWALLOWon 06-15-2022 XR [...] by: SANTOS DC Date: 2022-06-15 11:11 Normal [facility] Ambulatory Visit Summaryon 0 05-03-2022 Ambulatory [...] Where: [facility] [address], [place] [address]- [id number] Medications What How Much When Instructions Unchanged [...] the si (more content not included)... Normal [facility] Patient Educationon 05-03-20 Patient Education Urology Benign [...] Follow these instructions at home: ? Take gpxs-pfp-ugnerct and prescription medicines only as told by [...] You d (more content not included)... Normal [facility] Urology Office/Clinic Noteon 05-03-2022 Urology Office/Clinic Note Chief Complaint 1 year with KUB HPI Staff Tito is here today for a 1 year follow up with a KUB. KUB done on 04/26/22 at [facility] impression showed no appreciable urinary tract [...] [facility] [address], [place] [phone] Additional Instructions: PRN Patient Education Benign Prostatic [...] in lifetim (more content not included)... Normal [facility] Comment on above: Result Comment: Elec tronically Signed By: Mc ALMONTE MD\.br\Date and Time Signed: 05/03/22 09:26 EDT\.br\Electronically Co-Signed By: Jerri Lyles.br\Date and Time Co-Signed: 05/03/22 09:24 EDT RAD - MISCon 04-28-2022 RAD - MIS [id number] Normal [facility] XR KUB 1 VIEWon 04-27-2022 [...] by: SANTOS DC Date: 2022-04-27 06:18 Normal [facility] GLYCOHEMOGLOBIN A1Con 2021 ADA RECOMMENDATION SEE BELOW Normal [facility] Comment on above: Result Comment: ADA RECOMMENDED LIMIT 4.0 - 6.0 ADA THERAPEUTIC TARGET < 7.0 ACTION SUGGESTED > 7.0 Performed By: #### A 1C #### [facility] [address] [place] [address] Dr. Arjun Menjivar Glucose [Mass/Vol] 126 mg/dL Normal [facility] Comment on above: Performed By: #### A 1C #### [facility] [address] [place] [address] Dr. Arjun Menjivar HbA1c (Bld) [Mass fraction] 6.0 % Normal 4.5-6.2 [facility] Comment on above: Performed By: #### A 1C #### [facility] [address] [place] [address] Dr. Arjun Menjivar IRON AND TIBCon 04-07-2022 % SATURATION 25.4 % Normal [facility] Comment on above: Performed By: #### F ETIBC, B12FOL #### [facility] [address] [place] [address] Dr. Arjun Menjivar Iron [Mass/Vol] 62.0 ug/dL Critically low 65.0-175.0 [facility] Comment on above: Performed By: #### F ETIBC, B12FOL #### [facility] [address] [place] [address] Dr. Arjun Menjivar TIBC DIRECT 244.0 ug/dL Critically low 250.0-450.0 [facility] Comment on above: Performed By: #### F ETIBC, B12FOL #### [facility] [address] [place] [address] Dr. Arjun Menjivar VIT B12 AND FOLATEon 022 Cobalamin (Vitamin B12) [Mass/Vol] 597.0 pg/mL Normal 193.0-986.0 [facility] Comment on above: Performed By: #### F ETIBC, B12FOL #### [facility] [address] [place] [address] Dr. Arjun Menjivar FOLATE 21.50 ng/mL Normal 8.60-58.90 [facility] Comment on above: Performed By: #### F ETIBC, B12FOL #### [facility] [address] [place] [address] [address] Arjun Menjivar CBCon 03-16-2022 ABSOLUTE BAS 0.0 10*3/uL Normal 0.0-0.2 [facility] Comment on above: Result Comment: Test ing performed at [place] [address] Performed By: #### R ENF ACBC, PT #### [place] [address] ABSOLUTE EOS 0.00 10*3/uL Normal 0.0-0.7 [facility] Comment on above: Performed By: #### R ENF ACBC, PT #### [place] [address] ABSOLUTE NEUTROPHIL COUNT 8.5 10*3/uL High 1.4-6.5 [facility] Comment on above: Performed By: #### R ENF ACBC, PT #### [place] [address] Basophils/100 WBC (Bld) 0.1 % Normal 0.0-2.0 [facility] Comment on above: Performed By: #### R ENF ACBC, PT #### [place] [address] DTYPE AUTO DIFF Normal [facility] Comment on above: Performed By: #### R ENF ACBC, PT #### [place] [address] Eosinophils/100 WBC (Bld) 0.0 % Normal 0.0-11.0 [facility] Comment on above: Performed By: #### R ENF ACBC, PT #### [place] [address] Lymphocytes (Bld) [#/Vol] 0.60 10*3/uL Low 1.2-3.4 [facility] Comment on above: Performed By: #### R ENF ACBC, PT #### [place] [address] Lymphocytes/100 WBC (Bld) 6.4 % Low 20.0-55.0 [facility] Comment on above: Performed By: #### R HUGH MAGDALENO, PT #### [place] [address] Monocytes (Bld) [#/Vol] 0.4 10*3/uL Normal 0.0-0.7 [facility] Comment on above: Performed By: #### R LUMA MAGDALENOBC, PT #### [place] [address] Monocytes/100 WBC (Bld) 4.1 % Normal 0.0-10.0 [facility] Comment on above: Performed By: #### HUGH FARIA, PT #### [place] [address] Neutrophils/100 WBC (Bld) 89.4 % High 37.0-75.0 [facility] Comment on above: Performed By: #### LUMA FARIABC, PT #### [place] [address] Erythrocyte distribution width (RBC) [Ratio] 17.0 % High 11.5-14.5 [facility] Comment on above: Performed By: #### HUGH FARIA, PT #### [place] [address] Hematocrit (Bld) [Volume fraction] 33.9 % Low 42.0-52.0 [facility] Comment on above: Performed By: #### R ENLUMA KnowlesBC, PT #### [place] [address] Hemoglobin (Bld) [Mass/Vol] 11.7 g/dL Low 14.0-18.0 [facility] Comment on above: Performed By: #### R ENF ACBC, PT #### [place] [address] MCH (RBC) [Entitic mass] 30.0 pg Normal 26.0-35.0 [facility] Comment on above: Performed By: #### R ENEleni ACBC, PT #### [place] [address] MCHC (RBC) [Mass/Vol] 34.5 g/dL Normal 27.0-37.0 [facility] Comment on above: Performed By: #### R ENF ACBC, PT #### [place] [address] MCV (RBC) [Entitic vol] 87.2 fL Normal 80.0-100.0 [facility] Comment on above: Performed By: #### R RASTA ACBC, PT #### [place] [address] Platelet mean volume (Bld) [Entitic vol] 9.2 fL Normal 7.4-11.0 [facility] Comment on above: Performed By: #### R RASTA ACBC, PT #### [place] [address] Platelets (Bld) [#/Vol] 154 10*3/uL Normal 130.0-400.0 [facility] Comment on above: Performed By: #### R ENF ACBC, PT #### [place] [address] RBC (Bld) [#/Vol] 3.89 10*6/uL Low 4.0-6.1 [facility] Comment on above: Performed By: #### R ENF ACBC, PT #### [place] [address] WBC (Bld) [#/Vol] 9.5 10*3/uL Normal 3.6-11.0 [facility] Comment on above: Performed By: #### R ENF ACBC, PT #### [place] [address] CBC, EDIF, PLATELETon 2021 ABSOLUTE BASOPHIL COUNT 0.0 10*3/uL 0.0 - 0.2 10*3/uL [facility] Comment on above: Testing performed at [facility], [place], [place] [address] Basophils/100 WBC (Bld) 0.1 % 0.0 - 2.0 % [facility] Differential cell count method Nom (Bld) AUTO DIFF % [facility] Eosinophils (Bld) [#/Vol] 0.00 10*3/uL 0.0 - 0.7 10*3/uL [facility] Eosinophils/100 WBC (Bld) 0.0 % 0.0 - 11.0 % [facility] Erythrocyte distribution width (RBC) [Ratio] 17.0 % High 11.5 - 14.5 % [facility] Hematocrit (Bld) [Volume fraction] 33.9 % Low 42.0 - 52.0 % [facility] Hemoglobin (Bld) [Mass/Vol] 11.7 g/dL Low [facility] Interpretation and review of laboratory results Abnormal [facility] Lymphocytes (Bld) [#/Vol] 0.60 10*3/uL Low 1.2 - 3.4 10*3/uL [facility] Lymphocytes/100 WBC (Bld) 6.4 % Low 20.0 - 55.0 % [facility] MCH (RBC) [Entitic mass] 30.0 pg 26.0 - 35.0 PG [facility] MCHC (RBC) [Mass/Vol] 34.5 g/dL [facility] MCV (RBC) [Entitic vol] 87.2 fL [facility] Monocytes (Bld) [#/Vol] 0.4 10*3/uL 0.0 - 0.7 10*3/uL [facility] Monocytes/100 WBC (Bld) 4.1 % 0.0 - 10.0 % [facility] Neutrophils (Bld) [#/Vol] 8.5 10*3/uL High 1.4 - 6.5 10*3/uL [facility] Neutrophils/100 WBC (Bld) 89.4 % High 37.0 - 75.0 % [facility] Platelet mean volume (Bld) [Entitic vol] 9.2 fL [facility] Platelets (Bld) [#/Vol] 154 10*3/uL 130.0 - 400.0 10*3/uL [facility] RBC (Bld) [#/Vol] 3.89 10*6/uL Low 4.0 - 6.1 10*6/uL [facility] WBC (Bld) [#/Vol] 9.5 10*3/uL 3.6 - 11.0 10*3/uL [facility] PROTIMEon 03-16-2022 INR Coag (PPP) [Relative time] 1.37 {INR} High 0.85-1.10 [facility] Comment on above: Result Comment: 2.0-3.0 THERAPEUTIC RANGE 2.5-3.5 MECHANICAL VALVE RANGE Testing performed at [place] [address] Performed By: #### R ENF, ACBC, PT #### [place] [address] PT Coag (PPP) [Time] 16.9 s High 11.8-14.4 [facility] Comment on above: Performed By: #### R ENF, ACBC, PT #### [place] [address] PROTIME-INRon 03-16-2022 INR Coag (PPP) [Relative time] 1.37 {INR} High [facility] Comment on above: 2.0-3.0 THERAPEUTIC RANGE 2.5-3.5 MECHANICAL VALVE RANGE Testing performed at [place] [address] Interpretation and review of laboratory results Abnormal [facility] PT Coag (PPP) [Time] 16.9 s High [facility] RENAL FUNCTION PANELon 03-16 Albumin [Mass/Vol] 3.3 G/dl Low 3.5 - 5.0 G/dl [facility] Calcium [Mass/Vol] 7.9 mg/dL Low [facility] Chloride [Moles/Vol] 106 mmol/L [facility] Comment on above: Please note: Triglyc eride levels of 600mg/dL or higher may positively bias chloride results by approximately 2.1 mmol CO2 [Moles/Vol] 23 mmol/L [facility] Creatinine [Mass/Vol] 1.20 mg/dL [facility] GFR COMMENT Average GFR for 70+ years old = 75. [facility] Comment on above: Chronic Kidney disea se, GFR = <60. Kidney failure, GFR = <15. The GFR estimate is not adjusted for extreme body surface area or acute process, nor has it been validated for women or ethnic groups other than and . Testing performed at [place], [place] [address] GFR/1.73 sq M.predicted among blacks MDRD (S/P/Bld) [Vol rate/Area] 76 mL/min/{1.73_m2} ml/min/1.73 sq.m [facility] GFR/1.73 sq M.predicted among non-blacks MDRD (S/P/Bld) [Vol rate/Area] 63 mL/min/{1.73_m2} ml/min/1.73 sq.m [facility] Glucose post fast [Mass/Vol] 230 mg/dL High [facility] Comment on above: NORMAL <100 mg/dL PREDIABETES 101-126 mg/dL DIABETES 126 mg/dL or higher Interpretation and review of laboratory results Abnormal [facility] Phosphate [Mass/Vol] 2.9 mg/dL [facility] Potassium [Moles/Vol] 4.5 mmol/L [facility] Sodium [Moles/Vol] 136 mmol/L Low [facility] Urea nitrogen [Mass/Vol] 22 mg/dL High [facility] RENAL PANEL,FASTINGon 2021 ALBUMIN 3.3 G/dl Low 3.5-5.0 [facility] Comment on above: Performed By: #### R HUGH MAGDALENO, PT #### Testing performed at [facility] [address] [place] [address] Calcium [Mass/Vol] 7.9 mg/dL Low 8.4-10.2 [facility] Comment on above: Performed By: #### R RASTA ACBC, PT #### Testing performed at [facility] [address] [place] [address] Chloride [Moles/Vol] 106 mmol/L Normal 98-107 [facility] Comment on above: Result Comment: Plea se note: Triglyceride levels of 600mg/dL or higher may positively bias chloride results by approximately 2.1 mmol Performed By: #### R HUGH MAGDALENO, PT #### [place] [address] CO2 [Moles/Vol] 23 mmol/L Normal 22-30 [facility] Comment on above: Performed By: #### R HUGH MAGDALENO, PT #### [place] [address] Creatinine [Mass/Vol] 1.20 mg/dL Normal 0.7-1.2 [facility] Comment on above: Performed By: #### HUGH FARIA, PT #### [place] [address] EST. GFR, 76 ml/min/1.73sq.m [facility] Comment on above: Performed By: #### HUGH FARIA, PT #### [place] [address] EST. GFR,Non 63 ml/min/1.73sq.m [facility] Comment on above: Performed By: #### HUGH FARIA, PT #### [place] [address] GFR Information Average GFR for 70+ years old = 75. Normal [facility] Comment on above: Result Comment: Slate Handler david Kidney disease, GFR = <60. Kidney failure, GFR = <15. The GFR estimate is not adjusted for extreme body surface area or acute process, nor has it been validated for women or ethnic groups other than and . Testing performed at [place] [address] Performed By: #### R HUGH MAGDALENO, PT #### [place] [address] Glucose [Mass/Vol] 230 mg/dL High 70-100 [facility] Comment on above: Result Comment: NORMAL <100 mg/dL PREDIABETES 101-126 mg/dL DIABETES 126 mg/dL or higher Performed By: #### R HUGH MAGDALENO, PT #### Testing performed at [facility] [address] [place] [id number] PHOSPHOROUS 2.9 MG/DL Normal 2.5-4.5 [facility] Comment on above: Performed By: #### R HUGH MAGDALENO, PT #### Testing performed at [place] [id number] Potassium [Moles/Vol] 4.5 mmol/L Normal 3.5-5.1 [facility] Comment on above: Performed By: #### R HUGH MAGDALENO, PT #### [place] [address] Sodium [Moles/Vol] 136 mmol/L Low 137-145 [facility] Comment on above: Performed By: #### R HUGH MAGDALENO, PT #### [place] [address] Urea nitrogen [Mass/Vol] 22 mg/dL High 7-20 [facility] Comment on above: Performed By: #### R HUGH MAGDALENO, PT #### [place] [address] GLUCOSE (POC DEVICE)on 03-15 GLUCOSE, POINT OF CARE 118 [facility] Interpretation and review of laboratory results Abnormal [facility] [employer] [id number] [facility] Comment on above: Testing performed at [address] MRSA SCREENon 03-15-2022 MRSA DNA HERIBERTO+probe Ql (Unsp spec) Not detected Normal NOT DETECTED [facility] Comment on above: Performed By: #### M RSAST #### [place] [address] STAPH AUREUS SCREEN Not detected Normal NOT DETECTED [facility] Comment on above: Result Comment: Test ing performed at [place] [address] Performed By: #### M RSAST #### Testing performed at [place] [id number] NOVEL CORONAVIRUSon 03-15-20 22 NARRATIVE This test was perfor med using isothermal HERIBERTO and has been approved as Emergency Use Authorization (EUA) for the qualitative detection [id number] nucleic acid. Normal [facility] Comment on above: Result Comment: Test ing performed at [place] [address] Performed By: #### C OVID #### [place] [address] SARS-CoV-2 (COVID-19) RNA HERIBERTO+probe Ql (Unsp spec) Not detected Normal NOT DETECTED [facility] Comment on above: Result Comment: Nega [...] #### C OVID #### [place] [address] NOVEL CORONAVIRUS LAB 1 - NA SOPHARYNGEALon 03-15-2022 NARRATIVE -1 This test was perfor med using isothermal HERIBERTO and has been approved as Emergency Use Authorization (EUA) for the qualitative detection [id number] nucleic acid. [facility] Comment on above: Testing performed at [place] [address] SARS-CoV-2 (COVID-19) RNA HERIBERTO+probe Ql (Unsp spec) Not detected NOT DETECTED [facility] Comment on above: Negative results do not [...] patient is critically ill or clinically deteriorating. [facility] POCT GLUCOSEon 03-15-2022 Glucose [Mass/Vol] 118 mg/dL High 70-100 [facility] Comment on above: Performed By: #### P OCGLU #### [place] [address] CHUCKING MACHINE OPERATOR [id number] Normal [facility] Comment on above: Result Comment: Test ing performed at [place] [address] Performed By: #### P OCGLU #### [place] [address] PROTIMEon 03-15-2022 INR Coag (PPP) [Relative time] 1.36 {INR} High 0.85-1.10 [facility] Comment on above: Result Comment: 2.0-3.0 THERAPEUTIC RANGE 2.5-3.5 MECHANICAL VALVE RANGE Testing performed at [place] [address] Performed By: #### P T #### [place] [address] PT Coag (PPP) [Time] 16.8 s High 11.8-14.4 [facility] Comment on above: Performed By: #### P T #### [place] [address] PROTIME-INRon 03-15-2022 INR Coag (PPP) [Relative time] 1.36 {INR} High [facility] Comment on above: 2.0-3.0 THERAPEUTIC RANGE 2.5-3.5 MECHANICAL VALVE RANGE Testing performed at [place] [address] Interpretation and review of laboratory results Abnormal [facility] PT Coag (PPP) [Time] 16.8 s High [facility] PTTon 03-15-2022 aPTT Coag (Bld) [Time] 28.7 s Normal 22.4-34.7 [facility] Comment on above: Result Comment: CARDIAC AND PE/DVT THERAPUTIC RANGE 69-97 SEC VASCULAR/THREATENED LIMB THERAPUTIC RANGE 80-112 SEC Testing performed at [place] [address] Performed By: #### P TT #### [place] [address] aPTT Coag (Bld) [Time] 28.7 s [facility] Comment on above: CARDIAC AND PE/DVT THERAPUTIC RANGE 69-97 SEC VASCULAR/THREATENED LIMB THERAPUTIC RANGE 80-112 SEC [address] SCREEN: MRSA ONLY, NARES (IS OLATION SCREEN)on 03-15-2022 MRSA isol Org specific cx Ql (Nose) Not detected NOT DETECTED [facility] STAPHYOCOCCUS AUREUS BY PCR Not detected NOT DETECTED [facility] Comment on above: Testing performed at [place] [address] [employer] TYPE AND SCREEN CROSSMATCH C ONVERTIBLEon 03-15-2022 TYPE AND SCREEN CROSSMATCH CONVERTIBLE WORKUP EXPIRES 03/18/2022,2359 ABO/RH(D) A POSITIVE ANTIBODY SCREEN NEGATIVE ARM BAND NUMBER [id number] Testing performed at [place] [address] Normal [facility] Comment on above: Performed By: #### T SCC #### [place] [address] TYPE AND SCREEN - POSSIBLE T RANSFUSIONon 03-15-2022 ABO and Rh group Nom (Bld ) Positive [employer] ARM BAND NUMBER [id number] [facility] ARM BAND NUMBER [address] [facility] [address] Blood group antibody screen Ql Negative [facility] EXPIRATION DATE 03/18/2022,2359 [facility] XR KNEE RIGHT 2 VIEWSon 02-25 XR KNEE RIGHT 2 VIEWS EXAM: XR KNEE RIGHT 2 VIEWS HISTORY: COMPARISON: FINDINGS: Joint replacement is seen with overall preservation of normal alignment. No abnormal lucency is seen around the hardware. IMPRESSION: Joint replacement without hardware complication Normal [facility] XR Knee - right 2 Viewson [...] IMPRESSION IMPRESSION: Joint replacement without hardware complication [facility] Radiology Study observation (narrative) [facility] XR Knee - right 2 ViewsOrder ed By: Abel Resendiz on 03-15-2022 [facility] Work Phone: Operative Reporton Operative Report MR#: [id number] S [facility] Pt. Name: Tito Goncalves Room #: CC [...] The patient was brought to the lab coordinator and a transesophageal echocardiogram was performed under [...] Flores MD Date Trans: 06/14/2019 12:23 A/asad [id number] cc: Augustine Metz D.O. [address] [place] [address] A [facility] [id number] Ryan Cardenas M.D. [address] [facility] [id number] Normal [facility] Repor ton 06-21-2017 Health [...] questions or concerns in the meantime. Normal [facility] Vital Signs Date Time Vital Sign Value Performing Clinician Facility 07-09-2024 08:50-0400 Body height 172.72 cm [facility] 07-09-2024 08:50-0400 Body mass index (BMI) [Ratio] 37.1 kg/m2 [facility] 07-09-2024 08:50-0400 Body weight 110.78 kg [facility] 07-09-2024 08:50-0400 Diastolic blood pressure 79 mm[Hg] [facility] 07-09-2024 08:50-0400 Heart rate 65 /min [facility] 07-09-2024 08:50-0400 Respiratory rate 12 /min [facility] 07-09-2024 08:50-0400 Systolic blood pressure 151 mm[Hg] [facility] 06-27-2024 08:54-0400 Body height 182.9 cm Simran Millardmor [employer] Work Phone: [facility] 06-27-2024 08:54-0400 Body mass index (BMI) [Ratio] 33.23 kg/m2 Simran Venicemor [employer] Work Phone: [facility] 06-27-2024 08:54-0400 Body weight 111.13 kg Simran Venicemor [employer] Work Phone: [facility] 06-27-2024 08:54-0400 Diastolic blood pressure 70 mm[Hg] Simran Venicemor [employer] Work Phone: [facility] 06-27-2024 08:54-0400 Heart rate 56 /min Simran Venicemor [employer] Work Phone: [facility] 06-27-2024 08:54-0400 SaO2% (BldA) [Mass fraction] 92 % Simran Venicemor [employer] Work Phone: [facility] 06-27-2024 08:54-0400 Systolic blood pressure 136 mm[Hg] Simran Venicemor [employer] Work Phone: [facility] 06-04-2024 11:14-0400 Body height 172.72 cm [facility] 06-04-2024 11:14-0400 Body mass index (BMI) [Ratio] 37.1 kg/m2 [facility] 06-04-2024 11:14-0400 Body weight 110.78 kg [facility] 06-04-2024 11:14-0400 Diastolic blood pressure 70 mm[Hg] [facility] 06-04-2024 11:14-0400 Heart rate 68 /min [facility] 06-04-2024 11:14-0400 Respiratory rate 18 /min [facility] 06-04-2024 11:14-0400 SaO2% (BldA) [Mass fraction] 99 % [facility] 06-04-2024 11:14-0400 Systolic blood pressure 130 mm[Hg] [facility] 04-04-2024 11:19-0400 Body height 172.72 cm DO Augustine Ball Work Phone: [facility] 04-04-2024 11:190400 Body mass index (BMI) [Ratio] 36.6 kg/m2 DO Augustine Ball Work Phone: [facility] 04-04-2024 11:190400 Body weight 109.37 kg DO Augustine Ball Work Phone: [facility] 04-04-2024 11:19-0400 Diastolic blood pressure 77 mm[Hg] DO Augustine Ball Work Phone: [facility] 04-04-2024 11:19-0400 Heart rate 55 /min DO Augustine Ball Work Phone: [facility] 04-04-2024 11:19-0400 Respiratory rate 12 /min DO Augustine Ball Work Phone: [facility] 04-04-2024 11:19-0400 Systolic blood pressure 151 mm[Hg] DO Augustine Ball Work Phone: [facility] 02-27-2024 [id number]:210400 Body height 172.72 cm DO Augustine Ball Work Phone: [facility] 02-27-2024 09:21-0400 Body mass index (BMI) [Ratio] 36.7 kg/m2 DO Augustine Ball Work Phone: [facility] 02-27-2024 09:21-0400 Body weight 109.48 kg DO Augustine Ball Work Phone: [facility] 02-27-2024 09:21-0400 Diastolic blood pressure 72 mm[Hg] DO Augustine Ball Work Phone: [facility] 02-27-2024 09:21-0400 Heart rate 60 /min DO Augustine Ball Work Phone: [facility] 02-27-2024 09:21-0400 Respiratory rate 12 /min DO Augustine Ball Work Phone: [facility] 02-27-2024 09:21-0400 Systolic blood pressure 152 mm[Hg] DO Augustine Ball Work Phone: [facility] 02-24-2024 17:02-0400 Diastolic blood pressure 70 mm[Hg] DO Augustine Ball Work Phone: [facility] 02-24-2024 17:02-0400 Heart rate 55 /min DO Augustine Ball Work Phone: [facility] 02-24-2024 17:02-0400 Respiratory rate 16 /min DO Augustine Ball Work Phone: [facility] 02-24-2024 17:02-0400 SaO2% (BldA) [Mass fraction] 97 % DO Augustine Ball Work Phone: [facility] 02-24-2024 17:02-0400 Systolic blood pressure 132 mm[Hg] DO Augustine Ball Work Phone: [facility] 02-24-2024 16:20-0400 Body temperature 98 [degF] DO Augustine Ball Work Phone: [facility] 02-24-2024 15:55-0400 Inhaled oxygen flow rate 8 L/min DO Augustine Ball Work Phone: [facility] 02-24-2024 15:38-0400 Body height 182.88 cm DO Augustine Ball Work Phone: [facility] 02-24-2024 15:38-0400 Body mass index (BMI) [Ratio] 32.5 kg/m2 DO Augustine Ball Work Phone: [facility] 02-24-2024 15:38-0400 Body weight 109 kg DO Augustine Ball Work Phone: [facility] 01-31-2024 15:34-0400 Body height 181.61 cm [facility] 01-31-2024 15:34-0400 Body mass index (BMI) [Ratio] 34.5 kg/m2 [facility] 01-31-2024 15:34-0400 Body weight 114.07 kg [facility] 01-31-2024 15:34-0400 Diastolic blood pressure 79 mm[Hg] [facility] 01-31-2024 15:34-0400 Heart rate 53 /min [facility] 01-31-2024 15:34-0400 Respiratory rate 12 /min [facility] 01-31-2024 15:34-0400 Systolic blood pressure 130 mm[Hg] [facility] 10-31-2023 10:30-0500 Body height Augustine Ball Other [facility] [employer] Other 10-31-2023 10:30-0500 Body mass index (BMI) [Ratio] 33.47 kg/m2 Augustine Ball Other [facility] [employer] Other 10-31-2023 10:30-0500 Body weight 110.41 kg Augustine Ball Other [facility] [employer] Other 10-31-2023 10:30-0500 Diastolic blood pressure 68 mm[Hg] Augustine Ball Other [facility] [employer] Other 10-31-2023 10:30-0500 Respiratory rate 12 /min Augustine Ball Other [facility] [employer] Other 10-31-2023 10:30-0500 Systolic blood pressure 122 mm[Hg] Augustine Ball Other [facility] [employer] Other 03-16-2023 11:19-0400 Body height 182.9 cm Azul Rachel APRN-ONLINE MERCHANDISING COORDINATOR Work Phone: [employer] 03-16-2023 11:19-0400 Body mass index (BMI) [Ratio] 33.23 kg/m2 Azul Rachel APRN-ONLINE MERCHANDISING COORDINATOR Work Phone: [facility] 03-16-2023 11:19-0400 Body temperature 97.2 [degF] Azul Rachel APRN-ONLINE MERCHANDISING COORDINATOR Work Phone: [facility] 03-16-2023 11:19-0400 Body weight 111.13 kg Azul Rachel APRN-ONLINE MERCHANDISING COORDINATOR Work Phone: [facility] 01-05-2023 12:00-0400 Body height Augustine Ball Other [employer] Other 01-05-2023 12:00-0400 Body mass index (BMI) [Ratio] 33.36 kg/m2 Augustine Ball Other [employer] Other 01-05-2023 12:00-0400 Body weight 110.04 kg Augustine Ball Other [employer] Other 01-05-2023 12:00-0400 Diastolic blood pressure 70 mm[Hg] Augustine Ball Other [employer] Other 01-05-2023 12:00-0400 Respiratory rate 12 /min Augustine Ball Other [employer] Other 01-05-2023 12:00-0400 Systolic blood pressure 118 mm[Hg] Augustine Ball Other [employer] Other 10-04-2022 12:00-0500 Body height Augustine Ball Other [employer] Other 10-04-2022 12:00-0500 Body mass index (BMI) [Ratio] 33.44 kg/m2 Augustine Ball Other [employer] Other 10-04-2022 12:00-0500 Body weight 110.32 kg Augustine Ball Other [employer] Other 10-04-2022 12:00-0500 Diastolic blood pressure 78 mm[Hg] Augustine Ball Other [employer] Other 10-04-2022 12:00-0500 Respiratory rate 12 /min Augustine Ball Other [employer] Other 10-04-2022 12:00-0500 Systolic blood pressure 128 mm[Hg] Augustine Ball Other [employer] Other 10-01-2022 08:30-0500 Diastolic blood pressure 77 mm[Hg] Damari Rojas Dept. of Dermatology 10-01-2022 08:30-0500 Systolic blood pressure 132 mm[Hg] Damari Rojas Dept. [facility] Dermatology 07-08-2022 11:47-0400 Body height 182.9 cm Pastor Bedoya MD Work Phone: [facility] 07-08-2022 11:47-0400 Body mass index (BMI) [Ratio] 33.23 kg/m2 Pastor Bedoya MD Work Phone: [facility] 07-08-2022 11:47-0400 Body weight 111.13 kg Pastor Bedoya MD Work Phone: [facility] 05-03-2022 08:48-0400 Blood Pressure Location Mc AL[facility] 05-03-2022 08:48-0400 Diastolic blood pressure 67 mm[Hg] Mc ALMONTE [facility] 05-03-2022 08:48-0400 Heart rate 70 /min Mc ALMONTE [facility] 05-03-2022 08:48-0400 Respiratory rate 16 /min Mc ALMONTE [facility] 05-03-2022 08:48-0400 Systolic blood pressure 120 mm[Hg] Mc ALMONTE [facility] 04-08-2022 09:49-0400 Body height 182.9 cm Azul Rachel APRN-ONLINE MERCHANDISING COORDINATOR Work Phone: [facility] 04-08-2022 09:49-0400 Body mass index (BMI) [Ratio] 33.23 kg/m2 Azul Rachel APRN-ONLINE MERCHANDISING COORDINATOR Work Phone: [employer] [facility] 04-08-2022 09:49-0400 Body temperature 96.91 [degF] Azul Rachel APRN-ONLINE MERCHANDISING COORDINATOR Work Phone: [employer] 04-08-2022 09:49-0400 Body weight 111.13 kg Azul Rachel APRN-ONLINE MERCHANDISING COORDINATOR Work Phone: [employer] [facility] 03-16-2022 11:00-0400 Body temperature 97.7 [degF] Pastor Bedoya MD Work Phone: [employer] 03-16-2022 11:00-0400 Diastolic blood pressure 70 mm[Hg] Pastor Bedoya MD Work Phone: [employer] 03-16-2022 11:00-0400 Heart rate 77 /min Pastor Bedoya MD Work Phone: [employer] 03-16-2022 11:00-0400 Respiratory rate 14 /min Pastor Bedoya MD Work Phone: [employer] 03-16-2022 11:00-0400 SaO2% (BldA) [Mass fraction] 96 % Pastor Bedoya MD Work Phone: [facility] 03-16-2022 11:00-0400 Systolic blood pressure 142 mm[Hg] Pastor Bedoya MD Work Phone: [facility] 03-15-2022 09:00-0400 Body height 182.9 cm Pastor Bedoya MD Work Phone: [facility] 03-15-2022 09:00-0400 Body mass index (BMI) [Ratio] 31.73 kg/m2 Pastor Bedoya MD Work Phone: [facility] 03-15-2022 09:00-0400 Body weight 106.14 kg Pastor Bedoya MD Work Phone: [facility] 2022 12:57-0400 Body height 182.9 cm Pastor Bedoya MD Work Phone: [facility] 2022 12:57-0400 Body mass index (BMI) [Ratio] 33.23 kg/m2 Pastor Bedoya MD Work Phone: [facility] 2022 12:57-0400 Body temperature 97.2 [degF] Pastor Bedoya MD Work Phone: [facility] 2022 12:57-0400 Body weight 111.13 kg Pastor Bedoya MD Work Phone: [facility] 11-04-2021 14:30-0500 Body height Carmen Kahn Other [employer] Other 03-20-2020 11:06-0400 BMI (Body Mass Index) 33.63 [facility]2 [facility] 03-[facility]-2020 11:06-0400 Body Temperature 97.5 [degF] [facility] 03-20-2020 11:06-0400 Body weight 112.49 kg [facility] 03-20-2020 11:06-0400 Height 182.9 cm [facility] 1945 00:00-0500 >na< Damari Rojas Dept. of Dermato logy Encounters Encounter Date Encounter Type Care Provider Facility Start: 07-11-2024 End: 07-11-2024 ambulatory EHAB [facility] Start: 07-09-2024 End: 07-09-2024 ambulatory [facility] Work Phone: Start: 07-09-2024 End: 07-09-2024 Patient encounter procedure [facility] Work Phone: Start: 06-27-2024 End: 06-27-2024 Bamboo flowsheet Simran Muniz EXPERIMENTAL MECHANIC [employer] [facility] Start: 06-27-2024 End: 06-27-2024 Bamboo flowsheet Simran Muniz EXPERIMENTAL MECHANIC [employer] [facility] Start: 06-27-2024 Non-patient / Non-visit [facility] Work Phone: Start: 06-27-2024 End: 06-27-2024 Office outpatient visit 25 minutes Simran Muniz EXPERIMENTAL MECHANIC [employer] [facility] Comment on above: PLMD (periodic limb movement disorder) (Primary Dx); CUBA (obstructive sleep apnea); Daytime hypersomnolence; Primary insomnia; Snoring Start: 06-27-2024 End: 06-27-2024 ambulatory SIMRAN MUNIZ Not Available Start: 06-19-2024 End: 06-19-2024 ambulatory OSMAN SHAH Not Available Start: 06-08-2024 End: 06-08-2024 ambulatory JOSE R DODD Not Available Start: 06-04-2024 End: 06-04-2024 ambulatory [facility] Work Phone: Start: 06-04-2024 End: 06-04-2024 Patient encounter procedure [facility] Work Phone: Start: 05-16-2024 End: 05-16-2024 ambulatory DO Augustine Ball Work Phone: [facility] Work Phone: Start: 05-16-2024 End: 05-16-2024 Patient encounter procedure DO Augustine Ball Work Phone: [facility] Work Phone: Start: 04-18-2024 Non-patient / Non-visit DO Alo louann Ball Work Phone: [facility] Work Phone: Start: 04-12-2024 End: 04-12-2024 ambulatory [facility] Start: 04-04-2024 End: 04-04-2024 ambulatory AUGUSTINE FREITAS Not Available Start: 04-04-2024 End: 04-04-2024 ambulatory DO Augustine Metz Work Phone: [facility] Work Phone: Start: 04-04-2024 End: 04-04-2024 Patient encounter procedure DO Augustine Metz Work Phone: [facility] Work Phone: Start: 04-02-2024 Non-patient / Non-visit [facility] Work Phone: Start: 04-02-2024 Non-patient / Non-visit DO Alo louann Ball Work Phone: [facility] Work Phone: Start: 04-01-2024 Non-patient / Non-visit DO Alo louann Ball Work Phone: [facility] Work Phone: Start: 03-22-2024 End: 03-22-2024 [facility] Start: 03-16-2024 End: 03-16-2024 ambulatory MADISON PAUL [facility] Start: 03-09-2024 End: 03-09-2024 ambulatory JOSE R DODD Not Available Start: 03-06-2024 End: 03-06-2024 ambulatory AUGUSTINE FREITAS Not Available Start: 02-27-2024 End: 02-27-2024 ambulatory AUGUSTINE FREITAS Not Available Start: 02-27-2024 End: 02-27-2024 ambulatory DO Augustine Ball Work Phone: [facility] Work Phone: Start: 02-27-2024 End: 02-27-2024 Patient encounter procedure DO Augustine Ball Work Phone: [facility] [facility] Work Phone: Start: 02-24-2024 End: 02-24-2024 Admission to same day surgery center DO Augustine Ball Work Phone: [facility] [place] Start: 02-24-2024 End: 02-24-2024 ambulatory DO Augustine Ball Work Phone: [facility] Work Phone: Start: 02-16-2024 End: 02-16-2024 Patient encounter procedure DO Augustine Ball Work Phone: [facility] Work Phone: Start: 02-16-2024 End: 02-16-2024 ambulatory DO Augustine Ball Work Phone: [facility] Work Phone: Start: 02-16-2024 Encounter for preprocedural cardiovascular examination Augustine Freitas [facility] Start: 02-15-2024 End: 02-15-2024 ambulatory AUGUSTINE Kelsey OMERCATHLEENYaquelin Not Available Start: 02-15-2024 End: 02-15-2024 ambulatory CHRISTIN BOLTON Not Available Start: 02-09-2024 End: 02-09-2024 [facility] Start: 01-31-2024 End: 01-31-2024 ambulatory [facility] Work Phone: Start: 01-31-2024 End: 01-31-2024 Patient encounter procedure [facility] Work Phone: Start: 01-31-2024 Non-patient / Non-visit [facility] Work Phone: Start: 01-29-2024 [facility] Start: 01-27-2024 [facility] management of inpatient [facility] Start: 01-26-2024 Evaluation and management of inpatient [facility] Start: 01-26-2024 Evaluation and management of inpatient [facility] Start: 01-25-2024 Evaluation and management of inpatient [facility] Start: 01-25-2024 Evaluation and management of inpatient [facility] Start: 01-25-2024 Evaluation and management of inpatient [facility] Start: 01-25-2024 Evaluation and management of inpatient [facility] Start: 01-25-2024 Evaluation and management of inpatient [facility] Start: 01-24-2024 End: 01-29-2024 Evaluation and management of inpatient [facility] Start: 01-18-2024 Non-patient / Non-visit [facility] Work Phone: Start: 01-10-2024 End: 01-10-2024 ambulatory OSMAN SHAH Not Available Start: 12-30-2023 End: 12-30-2023 ambulatory JOSE R DODD Not Available Start: 12-16-2023 Non-patient / Non-visit [facility] Work Phone: Start: 11-01-2023 End: 11-01-2023 ambulatory Augustine Metz Other [employer] Other Start: 11-01-2023 Telephone encounter Augustine PHILIPPE G [facility] Start: 10-31-2023 End: 10-31-2023 ambulatory Augustine Metz Other [employer] Other Start: 10-31-2023 Office outpatient vi sit 25 minutes Augustine Metz [facility] Start: 10-28-2023 Bamboo flowsheet Jose R D Za hler DO Work Phone: [facility] Start: 10-28-2023 Bamboo flowsheet Jos Er D Za hler DO Work Phone: [facility] Start: 10-28-2023 End: 10-28-2023 ambulatory JOSE R D ANDREZHLER Not Available Start: 10-24-2023 End: 10-24-2023 ambulatory AB [facility] Start: 09-16-2023 End: 01-24-2024 ambulatory [facility] Start: 09-06-2023 End: 09-06-2023 ambulatory [facility] Start: 08-29-2023 End: 08-29-2023 ambulatory JOSE R D ZAHLER Not Available Start: 08-27-2023 End: 08-29-2023 ambulatory JOSE R D ZAHLER Not Available Start: 08-26-2023 End: 08-26-2023 ambulatory JOSE R D ZAHLER Not Available Start: 07-11-2023 End: 07-11-2023 ambulatory Augustine Metz Other [employer] Other Start: 07-11-2023 Telephone encounter Augustine PHILIPPE G [facility] Start: 07-10-2023 End: 07-10-2023 ambulatory Augustine Metz Other [employer] Other Start: 07-10-2023 Telephone encounter Augustine PHILIPPE [facility] Start: 07-05-2023 End: 07-05-2023 Emergency department patient visit Augustine Metz Facility:[facility] Start: 03-16-2023 ambulatory AZUL RACHEL [facility] Start: 03-16-2023 End: 03-16-2023 Office outpatient visit 15 minutes Azul Rachel [employer] POLICE CAPTAIN-ONLINE MERCHANDISING COORDINATOR Work Phone: [facility] Comment on above: Hx of total knee art hroplasty, right (Primary Dx) Start: 03-16-2023 End: 03-16-2023 Subsequent hospital visit by physician Azul Rachel PRECINCT POLICE CAPTAIN-ONLINE MERCHANDISING COORDINATOR Work Phone: [facility] Start: 02-01-2023 ambulatory AUGUSTINE METZ Facilit y:[facility] Start: 01-24-2023 End: 02-23-2023 ambulatory SHAIKH Tiburcio PRICE Facility:[facility]1 Start: 01-22-2023 End: 01-22-2023 ambulatory Augustine Metz Other [employer] Other Start: 01-22-2023 Telephone encounter Augustine PHILIPPE [facility] Start: 2023 End: 01-22-[address] AUGUSTINE METZ Facility:[facility] Start: 01-05-2023 End: 01-05-2023 ambulatory Augustine Metz Other [employer] Other Start: 01-05-2023 Office outpatient vi sit 25 minutes Augustine Metz [facility] Start: 12-27-2022 End: 2023 ambulatory SHAIKH Tiburcio PRICE Facility:[facility] Start: 11-24-2022 End: 12-24-2022 ambulatory SHAIKH Tiburcio PRICE Facility:[facility] Start: 11-10-2022 End: 11-10-2022 ambulatory Augustine Metz Other [employer] Other Start: 11-10-2022 Telephone encounter Augustine PHILIPPE [facility] Start: 11-09-2022 Telephone encounter Augustine PHILIPPE [facility] Start: 11-09-2022 End: 11-10-2022 ambulatory AUGUSTINE METZ [facility] [employer] Other Start: 11-08-2022 ambulatory AUGUSTINE METZ Facilit y:[facility] Start: 11-01-2022 End: 11-02-[address] DOCTOR ABERNATHY Facility:[facility] Start: 10-28-2022 ambulatory AUGUSTINE METZ Facilit y:[facility] Start: 10-27-2022 End: 11-24-2022 ambulatory SHAIKH Tiburcio MCKEOND Facility:[facility] Start: 10-26-2022 End: 10-27-2022 ambulatory PUJA HOLBROOK MD Facility:[facility] Start: 10-19-2022 End: 10-20-[address] AUGUSTINE METZ Facility:[facility] Start: 10-04-2022 Damari Rojas Dept. of D ermatology Start: 10-04-2022 End: 10-04-2022 ambulatory Augustine Metz Other [employer] Other Start: 10-04-2022 Office outpatient vi sit 25 minutes Augustine [facility] Start: 10-01-2022 ambulatory Ms. Osman Shah Facility:[id number] Start: 09-27-2022 End: 10-27-2022 ambulatory SHAIKH Tiburcio PRICE Facility:[facility]1 Start: 09-14-2022 Damari Rojas Dept. of D ermatology Start: 09-09-2022 Pre-procedure evaluation check Augustine Metz Other [employer] Other Start: 09-07-[address] Macario Bui Facility:[id number] Start: 08-26-2022 End: 09-26-2022 ambulatory SHAIKH Tiburcio PRICE Facility:[facility]1 Start: 07-27-2022 End: 08-25-2022 ambulatory SHAIKH Tiburcio PRICE Facility:[facility]1 Start: 07-13-2022 End: 07-14-[address] AUGUSTINE METZ Facility:[facility]1 Start: 07-08-2022 ambulatory [facility] Start: 07-08-2022 End: 07-08-2022 Office outpatient visit 15 minutes Pastor Bedoya MD Work Phone: [facility] Comment on above: Hx of total knee art hroplasty, right (Primary Dx) Start: 07-08-2022 End: 07-08-2022 Subsequent hospital visit by physician Pastor Bedoya MD Work Phone: [facility] Start: 06-28-2022 End: 06-29-[address] AUGUSTINE METZ Facility:[facility] Start: 06-28-2022 End: 07-26-2022 ambulatory SHAIKH Tiburcio PRICE Facility:[facility]1 Start: 06-15-2022 End: 06-16-[address] AUGUSTINE METZ Facility:[facility]1 Start: 05-27-2022 End: 06-26-2022 ambulatory SHAIKH Tiburcio PRICE Facility:[facility]1 Start: 05-03-2022 End: 05-03-2022 Patient encounter procedure Mc ALMONTE [facility] Start: 04-26-2022 End: 04-27-[address] AUGUSTINE METZ Facility:[facility]1 Start: 04-26-2022 End: 05-26-2022 ambulatory SHAIKH Tiburcio PRICE Facility:[facility]1 Start: 04-19-2022 End: 05-08-[address] AUGUSTINE METZ Facility:[facility] Start: 04-08-2022 ambulatory AZUL RACHEL [facility] Start: 04-08-2022 End: 04-08-2022 Postop follow up visit related to original px Azul LAN Work Phone: [facility] Comment on above: Hx of total knee art hroplasty, right (Primary Dx) Start: 04-08-2022 End: 04-08-2022 Subsequent hospital visit by physician Azul LAN Work Phone: [facility] Start: 04-07-2022 End: 04-08-[address] AUGUSTINE METZ Facility:[facility]1 Start: 03-26-2022 End: 04-23-2022 ambulatory SHAIKH Tiburcio MCKEONSamira Facility: Start: 03-15-2022 End: 03-16-2022 Patient encounter status Pastor Bedoya MD Work Phone: [facility] Start: 03-15-2022 End: 03-16-2022 Subsequent hospital visit by physician Pastor Bedoya MD Work Phone: [facility] Comment on above: S/P total knee arthr oplasty, right Start: 2022 End: 2022 Office outpatient new 60 minutes Pastor Bedoya MD Work Phone: [facility] Comment on above: Right knee pain, uns pecified chronicity (Primary Dx); Pain in prosthetic joint, sequela Start: 2022 End: 2022 Subsequent hospital visit by physician Pastor Bedoya MD Work Phone: [facility] Start: 11-04-2021 End: 11-04-2021 ambulatory Carmen Kahn Other [employer] Other Start: 11-04-2021 Office outpatient vi sit 25 minutes Carmen Kahn [employer] [facility] G[facility] Start: 11-03-2021 End: 11-03-2021 ambulatory Carmen Kahn Other [employer] Other Start: 11-03-2021 Telephone encounter Carmen Kahn [employer] [facility] [employer] G[facility] Start: 03-20-2020 End: 03-20-2020 Office outpatient visit 15 minutes Pastor Bedoya Work Phone: [facility] Comment on above: 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) Start: 03-20-2020 End: 03-20-2020 Subsequent hospital visit by physician Azul LAN Work Phone: [facility] Start: 06-13-2019 End: 06-14-2019 Patient encounter procedure GENE JONES Facility:[facility] Procedures Date Procedure Procedure Detail Performing Clinician Start: 02-24-2024 Excision of lesion of cheek DO Augustine Metz Work Phone: Start: 10-28-2023 Computerized ophthalmic imaging retina Jose R Dodd DO Work Phone: Start: 10-28-2023 End: 10-28-2023 Ophth medical xm&eval comprhnsv estab pt 1/> Advanced [...] Phone: Start: 03-15-2022 Prothrombin time Azul Rachel [employer] POL[employer] CAPTAIN-ONLINE MERCHANDISING COORDINATOR Work Phone: Start: 03-15-2022 Cultyp nuc acid amp prb cult/isolate ea orgnism Azul Rachel [employer] POLICE CAPTAIN-ONLINE MERCHANDISING COORDINATOR Work Phone: Start: 03-15-2022 Sars-cov-2 detection by dna/rna Azul ramirez [employer] POLICE CAPTAIN-ONLINE MERCHANDISING COORDINATOR Work Phone: Start: 03-15-2022 Antibody screen rbc each serum technique Pastor Bedoya MD Work Phone: Start: 03-15-2022 End: 03-15-2022 Thromboplastin time partial plasma/whole blood Azul Rachel [employer] POL[employer] CAPTAIN-ONLINE MERCHANDISING COORDINATOR Work Phone: Start: 01-10-2020 Renal lithotripsy Mc ALMONTE Start: 10-23-2019 Cystoscopic removal of ureteric stent Mc ALMONTE Start: 09-26-2019 Endoscopic retrograde cholangiopancreatography Mc ALMONTE Cholecystectomy [facility] Colonoscopy Mc ALMONTE Depression screening Ramirez Metz Other Total knee replacement Ro ALMONTE Plan of Treatment Date Care Activity Detail Author Start: 01-03-2025 End: 01-03-2025 Patient encounter procedure 01/03/2025 9:20 AM EDT Office Visit [facility] [address] [place] [id number] Osman Shah, [employer] POLICE CAPTAIN-ONLINE MERCHANDISING COORDINATOR [address] [place] [address] [facility] Start: 09-07-2024 End: 09-07-2024 Patient encounter procedure 09/07/2024 9:45 AM EST Office Visit [facility] [address] [place] [address] Jose R Dodd, [address] [place] [address] [facility] Start: 06-27-2024 End: 06-27-2024 Patient encounter procedure 06/27/2024 9:00 AM EDT Office Visit [facility] [address] [place] [address] Simran Muniz NP [address] [place], [place] Arrived [facility] Comment on above: Arrived Start: 05-27-2024 Influenza vaccination Influenza Vacc ine (#1) [facility] Start: 02-24-2024 End: 02-24-2024 [facility] Start: 01-10-2024 End: 01-10-2024 Patient encounter procedure 01/10/2024 9:35 AM EDT Office Visit [facility] [address] [place] [address] Osman Shah PRECINCT POLICE CAPTAIN-ONLINE MERCHANDISING COORDINATOR [address] [place] [address] [facility] Start: 10-28-2023 End: 10-28-2023 Patient encounter procedure 10/28/2023 9:30 AM EST Procedure Visit [facility] [address] [place] [id number] Jose R Dodd, [address] [place] [address] Arrived [facility] Comment on above: Arrived Start: 05-27-2023 Influenza vaccination Influenza Vacc ine (#1) [facility] Start: 03-16-2023 End: 03-16-2023 Patient encounter procedure 03/16/2023 Office Visit Orthopaedics Azul Rachel, PRECINCT POLICE CAPTAIN-ONLINE MERCHANDISING COORDINATOR [address] [place] [address] [facility] Start: 10-22-2022 COVID-19 VACCINE (6 - Pfizer series) COVID-19 VACCINE (6 - Pfizer series) [facility] Start: 08-21-2022 Hemoglobin A1c measurement HBA1C TEST [facility] Start: 07-08-2022 End: 07-08-2022 Patient encounter procedure 07/08/2022 Office Visit Orthopaedics Pastor Bedoya MD [address] [place] [address] [facility] Start: 09-01-2022 Influenza vaccination A [facility] Start: 04-08-2022 End: 04-08-2022 Patient encounter procedure 04/08/2022 Office Visit Orthopaedics Azul Rachel, PRECINCT POLICE CAPTAIN-ONLINE MERCHANDISING COORDINATOR [address] [id number] [facility] Start: 02-18-2022 End: 02-18-2022 ambulatory 02/18/2022 Pre-Operative Nurse Assessment Internal Medicine [facility] Start: 05-27-2020 Influenza vaccination INFLUENZ A VACCINE (Season Ended) [facility] Start: 12-25-2014 Pneumococcal vaccination PNEUMOCOCCAL VACCINE SERIES (2 - PCV) [facility] Start: 12-25-2014 Pneumococcal Vaccine : 65+ Years (2 - PCV) Pneumococcal Vaccine: 65+ Years (2 - PCV) [facility] Start: 2011 Abdominal aortic aneurysm screening ABDOMINAL AORTIC ANEURYSM HIGH RISK SCREEN [facility] Start: 2011 Pneumococcal vaccination [facility] Start: 01-22-1996 Colonoscopy COLORECTAL CAN CER SCREENING DISCUSSION [facility] Start: 01-22-1996 Prostate specific antigen measurement PROSTATE CANCER SCREENING DISCUSSION [facility] Start: 01-22-1996 Zoster vaccine hzv live for subcutaneous use ZOSTER (SHINGLES) VACCINE (1 of 2) [facility] Start: 1991 Colonoscopy COLORECTAL CAN CER SCREENING DISCUSSION [facility] Start: 1991 Screening for malignant neoplasm of colon COLORECTAL CANCER SCREENING DISCUSSION [facility] Start: 1986 Fasting lipid profile LIPID SCREENIN G [facility] Start: 1965 Third diphtheria, tetanus and acellular pertussis (DTaP) vaccination TDAP (ADULT) [facility] Start: 01-22-1964 Tetanus vaccination TETANUS [facility] Start: 1950 COVID-19 VACCINE (#1) COVID-19 VACCI NE (#1) [facility] Start: 1945 COVID-19 VACCINE (#1) COVID-19 VACCI NE (#1) [facility] Start: 1945 Diabetic foot examination DIABETIC FOOT EXAM [facility] Start: 1945 Diabetic retinal eye exam EYE EXAM [facility] Start: 1945 Glaucoma screening EYE EXAM [facility] Start: 1945 Hepatitis B vaccination HEP B VACCINE (1 of 3 - 3-dose series) [facility] Start: 1945 Hepatitis C antibody , confirmatory test HEPATITIS C VIRUS SCREENING [facility] Start: 1945 Hepatitis C screening HEPATITI S C VIRUS SCREENING [facility] Start: 1945 Lipid panel LIPIDS [facility] Start: 1945 LIPIDS LIPIDS [facility] Start: 1945 Microalbumin measurement, urine, quantitative URINE MICROALBUMIN TEST [facility] Start: 1945 Potassium [Moles/Vol] POTASSIUM A [facility] Start: 1945 Tetanus vaccination TETANUS [facility] Start: 1945 Urine screening for protein URINE MICROALBUMIN TEST [facility] Patient Education Know your Meds [facility] Work Phone: Patient referral [facility] Work Phone: Radiography for bone length studies XR BONE LENGTH STUDY Imaging Routine Hx of total knee arthroplasty, right 07/08/2022 11:01 AM EDT [facility] Work Phone: SURGICAL PATHOLOGY REQUEST SURGICAL PATHOLOGY REQUEST Surg Path Routine Osteoarthritis of right knee, unspecified osteoarthritis type Release Upon Ordering for 1 Occurrences starting 03/15/2022 [facility] Work Phone: Comment on above: Release Upon Orderin g for 1 Occurrences starting 03/15/2022 X-ray of left knee XR KNEE LEFT 3 VIEWS Imaging Routine History of revision of total replacement of left knee joint 03/20/2020 10:48 AM EDT [facility] XR Knee - left 3 Views XR KNEE L EFT 3 VIEWS Imaging Routine Pain in prosthetic joint, sequela 2022 1:09 PM EDT [facility] XR Knee - right 3 Views XR KNEE RIGHT 3 VIEWS Imaging Routine Hx of total knee arthroplasty, right 04/08/2022 10:04 AM EDT [facility] XR Knee - right 3 Views XR KNEE RIGHT 3 VIEWS Imaging Routine Hx of total knee arthroplasty, right 07/08/2022 11:01 AM EDT [facility] XR Knee - right 3 Views XR KNEE RIGHT 3 VIEWS Imaging Routine Hx of total knee arthroplasty, right 03/16/2023 11:03 AM EDT [facility] XR Knee - right 4 Views XR KNEE RIGHT 4+ VIEWS Imaging Routine Right knee pain, unspecified chronicity 2022 12:51 PM EDT [facility] Immunizations Immunization Date Immunization Notes Care Provider Dunia burrell 07-09-2024 influenza, high dose seasonal, preservative-free [facility] 12-27-2023 COVID-19 (PFIZER) 12Y and older DO Augustine Ball Work Phone: [facility] 07-08-2023 influenza virus vaccine, unspecified formulation [facility] 07-08-2023 influenza, high dose seasonal, preservative-free Augustine Ball Other [employer] [facility] [employer] Other 06-21-2023 COVID-19 (PFIZER) 12Y and older DO Augustine Ball Work Phone: [facility] 03-03-2023 zoster vaccine recombinant Augustine Ball Other [facility] 01-01-2023 zoster vaccine recombinant Augustine Ball Other [facility] 06-29-2022 influenza, high dose seasonal, preservative-free Augustine Ball Other [employer] Other 06-29-2022 influenza virus vaccine, split virus (incl. purified surface antigen) Augustine Ball Other [employer] Other 06-29-2022 Influenza, Seasonal, Quadrivalent, Adjuvanted Simran Muniz [employer] Work Phone: [facility] 06-29-2022 influenza virus vaccine, unspecified formulation Jose R Dodd DO Work Phone: [facility] 06-22-2022 COVID-19 Pfizer (bivalent) Augustine Metz Other [facility] 04-17-2022 COVID-19 Comirnaty (Pfizer) Tri-Sucrose 12+ DO Augustine Metz Work Phone: [facility] 07-15-2021 influenza virus vaccine, split virus (incl. purified surface antigen) Augustine Metz Other [employer] Other 07-15-2021 influenza virus vaccine, unspecified formulation [facility] 07-15-2021 Seasonal trivalent influenza vaccine, adjuvanted, preservative free Simran Gillmor [employer] Work Phone: [facility] 06-22-2021 COVID-19 Vaccine Pfi zer - Documentation Purposes Only Augustine Metz Other [facility] 11-20-2020 COVID-19 Vaccine Pfi zer - Documentation Purposes Only Augustine Metz Other [facility] 10-30-2020 COVID-19 Vaccine Pfi zer - Documentation Purposes Only Augustine Metz Other [facility] 07-09-2020 influenza, high dose seasonal, preservative-free Simran Gillmor [employer] Work Phone: [facility] 07-01-2020 influenza virus vaccine, split virus (incl. purified surface antigen) Augustine Metz Other [employer] Other 07-01-2020 influenza virus vaccine, unspecified formulation [facility] 07-06-2019 influenza virus vaccine, split virus (incl. purified surface antigen) Augustine Metz Other [employer] Other 07-06-2019 influenza virus vaccine, unspecified formulation [facility] 07-12-2018 influenza virus vaccine, split virus (incl. purified surface antigen) Augustine Isaías Other [facility] [employer] Other 07-12-2018 influenza virus vaccine, unspecified formulation [facility] 07-12-2018 Seasonal trivalent influenza vaccine, adjuvanted, preservative free Simran Gillmor [employer] Work Phone: [facility] 07-25-2017 influenza virus vaccine, split virus (incl. purified surface antigen) Augustine eMtz Other [facility] [employer] Other 07-25-2017 influenza virus vaccine, unspecified formulation [facility] 07-25-2017 influenza, high dose seasonal, preservative-free Simran Gillmor [employer] Work Phone: [facility] 07-07-2016 influenza virus vaccine, split virus (incl. purified surface antigen) Augustine Metz Other [facility] [employer] Other 07-07-2016 influenza virus vaccine, unspecified formulation [facility] 07-07-2016 influenza, high dose seasonal, preservative-free Simran Gillmor [employer] Work Phone: [facility] 07-18-2015 pneumococcal conjuga te vaccine, 13 valent Augustine Metz Other [facility] 06-11-2015 influenza virus vaccine, split virus (incl. purified surface antigen) Augustine Metz Other [facility] [employer] Other 06-11-2015 influenza virus vaccine, unspecified formulation [facility] 05-27-2015 influenza, injectabl e, madin emilee canine kidney, preservative free Simran Gillmor [employer] Work Phone: [facility] 06-17-2014 tetanus and diphther ia toxoids, adsorbed, preservative free, for adult use (5 Lf of tetanus toxoid and 2 Lf of diphtheria toxoid) Augustine Metz Other [facility] 12-25-2013 pneumococcal polysaccharide vaccine, 23 valent Simran Venicemor [employer] Work Phone: [facility] 08-28-2013 pneumococcal polysaccharide vaccine, 23 valent Augustine Metz Other [facility] 07-26-2013 tetanus and diphther ia toxoids, adsorbed, preservative free, for adult use (5 Lf of tetanus toxoid and 2 Lf of diphtheria toxoid) Augustine Metz Other [facility] 07-18-2013 zoster vaccine, live Benjami n Ball Other [facility] 1945 pneumococcal conjuga te vaccine, 7 valent Damari Rojas [facility]at[facility] Payers Date Payer Category Payer Self-pay [id number] 2017 Unknown [employer] [id number] 2017-Present [id number]. [id number] 2010 Medicare MEDICARE MEDICAR E A AND B [id number] 2010-Present [place], [place] [id number]. [id number] 2008 Medicare [id number]. 1.13.172.2.7.3. [id number] 2008 Unknown 1.2.840.135840. 1.13.172.2.7.3. [id number] 1959 Medicare [id number] 2.16.840.1.750627.19 1959 Unknown [id number] 1946 Unknown [id number] 2.0.1.297523.3.579.2.647 1946 Unknown [id number] 2.840.1.025264.3.579.2.356 1946 Unknown [id number] 2.16.840.1.263631.3.579.2.356 1946 Unknown [id number] 2.16840.1.640210.3.579.2.159 1946 Unknown [id number] 2.16.840.1.698975.3.579.2.159 1946 Unknown [id number] 2.16.840.1.434262.3.579.2.159 1946 Unknown [id number] 2.16.840.1.836299.3.579.2.159 1946 Unknown [id number] 2.16.840.1.494273.3.579.2.159 1946 Unknown [id number] 2.16.840.1.186361.3.579.2.593 1946 Unknown [id number] 2.16.840.1.792072.3.579.2.593 1946 Unknown [id number] 2.16.840.1.673698.3.579.2.593 1946 Unknown [id number] 2.16.840.1.778135.3.579.2.593 1946 Unknown [id number] 2.16.840.1.598584.3.579.2.593 1946 Unknown [id number] 2.16.840.1.401230.3.579.2.593 1946 Unknown [id number] 2.16.840.1.635696.3.579.2.593 1946 Unknown [id number] 2.16.840.1.706605.3.579.2.593 1946 Unknown [id number] 2.16.840.1.397844.3.579.2.593 1946 Unknown [id number] 2.16.840.1.855034.3.579.2.593 1946 Unknown [id number] 2.16.840.1.164542.3.579.2.593 1946 Unknown [id number] 2.16.840.1.086032.3.579.2.593 1946 Unknown [id number] 2.16.840.1.509762.3.579.2.593 1946 Unknown [id number] 2.16.840.1.314297.3.579.2.593 1946 Unknown [id number] 2.16.840.1.923766.3.579.2.593 1946 Unknown [id number] 2.16.840.1.459236.3.579.2.593 1946 Unknown [id number] 2.16.840.1.360778.3.579.2.593 1946 Unknown [id number] 2.16.840.1.581753.3.579.2.593 1946 Unknown [id number] 2.16.840.1.341186.3.579.2.593 1946 Unknown [id number] 2.16.840.1.843926.3.579.2.593 1946 Unknown [id number] 2.16.840.1.930296.3.579.2.983 1946 Unknown [id number] 2.16.840.1.110998.3.579.2.983 1946 Unknown [id number] 2.16.840.1.732988.3.579.2.983 1946 Unknown [id number] 2.16.840.1.333338.3.579.2.983 1946 Unknown [id number] 2.16.840.1.441433.3.579.2.983 1946 Unknown [id number] 2.16.840.1.945886.3.579.2.983 1946 Unknown [id number] 2.16.840.1.622354.3.579.2.718 1946 Unknown [id number] 2.16.840.1.534811.3.579.2.1259 1946 Unknown [id number] 2.16.840.1.347936.3.579.2.1258 1946 Unknown [id number] 2.16.840.1.439446.3.579.2.1258 1946 Unknown [id number] 2.16.840.1.338662.3.579.2.1258 1946 Unknown [id number] 2.16.840.1.953330.3.579.2.1258 1946 Unknown [id number] 2.16.840.1.768485.3.579.2.1258 1946 Unknown [id number] 2.16.840.1.674719.3.579.2.1258 1946 Unknown [id number] 2.16.840.1.846593.3.579.2.1258 1946 Unknown [id number] 2.16.840.1.798712.3.579.2.1258 1946 Unknown [id number] 2.16.840.1.979644.3.579.2.1258 1946 Unknown [id number] 2.16.840.1.264434.3.579.2.1258 1946 Unknown [id number] 2.16.840.1.178760.3.579.2.1258 1946 Unknown [id number] 2.16.840.1.163222.3.579.2.1258 1946 Unknown [id number] 2.16.840.1.430816.3.579.2.1258 1946 Unknown [id number] 2.16.840.1.539790.3.579.2.1259 Medicare [id number] Unknown [facility] [id number] Unknown [id number] 2.16.840.1.209303.3.579.2.531 Unknown [id number] 2.16.840.1.842781.3.579.2.531 Social History Date Type Detail Facility Start: 03-20-2020 End: 04-02-2024 Tobacco smoking status NHIS Former smoker [facility] End: 02-08-1983 History of tobacco use Current smoker [facility] Start: 03-20-2020 End: 07-08-2022 Tobacco use and exposure Former user [facility] End: 02-08-2003 History of tobacco use User of smokeless tobacco [facility] Start: 03-20-2020 End: 03-16-2023 Alcohol intake Current non-drinker of alcohol (finding) [facility] Start: 1945 Sex Assigned At Not on file [facility] Start: 03-05-2022 End: 03-15-2022 Exposure to SARS-CoV-2 (event) Not sure [facility] Start: 03-16-2023 End: 06-27-2024 Sex Assigned At [facility] [employer] Other Start: 05-03-2022 End: 12-16-2023 Tobacco smoking status Never smoked tobacco (finding) [facility] End: 02-08-1983 History of tobacco use Cigarette Smoker [facility] Start: 09-14-2022 Dept. of D ermatology Start: 1945 Sex Assigned At Male [facility] Start: 03-16-2023 End: 06-27-2024 History of Social function [facility] Gender identity Identifies as ma le gender (finding) [facility] Start: 08-29-2023 End: 06-27-2024 Alcohol intake Lifetime non-drinker (finding) [facility] Start: 06-23-2023 Alcohol Comment caffeine: soda [facility] Medical Equipment Procedure Code Equipment Code [...] 05-03-2022 Functional Status N/A [facility] Clinical Notes 11-04-2021 to 07-11-2024 Note Date & Type Note Facility 07-11-2024 Note MD Cardiology - [facility] Chief Complaint: Thought he had [...] Type 2 diabetes mellitus with hyperglycemia (CMS/HCC) Abrasion of ear canal Anemia CAD (coronary artery disease) Chest pain Daytime hypersomnolence Hypersomnia Primary insomnia Family History Problem Relation Name Age of [...] In April 2019 he presented to the [facility] with atrial fibrillation with controlled [...] the mornings that is not bothering him. UPDATE 07/11/2024 Doing well; no significant chest pain No significant shortness of breath, lightheadedness, dizziness Has noticed that his blood pressure has been high in the past 2 or 3 weeks Review of Systems Constitutional: Positive for malaise/fatigue. Cardiovascular: Positive for chest pain and leg swelling. Hematologic/Lymphatic: Bruises/bleeds easily. Musculoskeletal: Positive for arthritis, back pain and myalgias. Neurological: Positive for dizziness. All other systems reviewed and are negative. Objective Visit Vitals BP 153/77 (BP Location: Left arm, Patient Position: Sitting) Pulse 54 Ht 1.829 m (6') Wt 110 kg (243 lb) SpO2 96% BMI 32.96 kg/m??? Smoking Status Former BSA 2.36 m??? Physical Exam Constitutional: Appearance: He is well-developed. He is obese. He is not ill-appearing. HENT: Hea (more content not included)... [facility] 04-12-2024 Note MD Cardiology - [facility] Chief Complaint: Thought he had [...] In April 2019 he presented to the [facility] with atrial fibrillation with controlled [...] rhythm. Pulses: Radial (more content not included)... [facility] 03-22-2024 Note MD Cardiology - [facility] Subjective Tito Goncalves is a [...] In April 2019 he presented to the [facility] with atrial fibrillation with controlled [...] normal. Allergies Morro (more content not included)... [facility] 03-16-2024 Note Patient: Tito meija Procedure Information Date/Time: 03/16/24 1030 Procedure: TRANSESOPHAGEAL ECHO (JESSICA) Location: [facility] Vascular Lab Clinical information reviewed: Allergies Meds Physical Exam Airway Mallampati: II TM distance: >3 FB Neck ROM: full Cardiovascular Rhythm: regular Rate: normal Dental Pulmonary Abdominal Anesthesia Plan ASA 3 other (Conscious sedation.) Anesthetic plan and risks discussed with patient. Use of blood products discussed with patient who consented to blood products. Additional Equipment Requests [facility] 02-09-2024 Note Patient here for fol low up LAAO and pericardial effusion. Still denies chest pain, SOB, palpitations, and lightheadedness/syncope. Doing very well. Review of Systems Constitutional: Positive for malaise/fatigue. Cardiovascular: Positive for leg swelling (resolves by morning). Hematologic/Lymphatic: Bruises/bleeds easily. Musculoskeletal: Positive for arthritis, back pain and myalgias. All other systems reviewed and are negative. [facility] 02-09-2024 Note Cardiovascular Medic [facility] SUBJECTIVE Chief Complaint Patient presents with [...] lower leg: Naman (more content not included)... [facility] 01-29-2024 Note Patient discharged w ith family. Patient provided copy of AVS and discharge instructions. All questions and concerns addressed. All belongings with patient [facility] 01-29-2024 Note Hospital Medicine Discharge Summary Final [...] In April 2019 he presented to the [facility] with atrial fibrillation with controlled [...] switched propafenon to amiodarone. - Not on correction AC due to hx of falls and [...] 02/09/2024 9:40 AM Madison Paul NP TIMO Rosalina [facility] 03/16/2024 10:30 AM [facility] MINER OPERATOR HOLDING ROOM [facility] V[facility] LAB MD HeartVAS Your medication list START taking these [...] Medications These medications were sent to [facility] - [place], [place] - [address] [place] [address] [place] [address] [facility] [place] [address], [facility] [address] amiodarone 200 mg tablet clopidogrel 75 mg tablet Tito is allergic to iodine, penicillins, shellfish containing products, and sulfa (sulfonamide antibiotics). Disposition: Home-Health Care [facility] () Discharge Condition: Stable Code Status: Full Code [...] oriented x3. Cardiology: (more content not included)... [facility] 01-29-2024 Note Cardiology Progress Note Subjective Subjective: [...] 86 QT Interval 316 QTC CALCULATION(BAZETT) 453 R-Ponca 8 T Wave [place] 100 Impression Atrial fibrillation with rapid ventricular [...] (TTE) limited Result Date: 01/27/2024 1 1 [facility] [address] [place] [address] [phone] (fax) Echocardiogram-[facility] Name: TITO GONCALVES Study Date: 01/27/2024 08:18 AM B/P: 147 mmHg/62 mmHg HR: 67 bpm Date of : 1945 Location: [facility] Height: 72 in. Age: 79 year(s) [...] fibrinous material noted. Procedure Staff Reading Group: [facility] Waterproofing Supervisor: MARLEY Donohue, RDCS Ordering Physician: LIONEL MENA Transthoracic echo (TTE) limited Result Date: 01/26/2024 1 1 [facility] [address] [place] [address] [phone] (fax) Echocardiogram-[facility] Name: TITO GONCALVES Study Date: 01/26/2024 07:59 AM B/P: 129 mmHg/74 mmHg HR: Date of : 1945 Location: [facility] Height: 72 in. Age: 79 year(s) [...] atrium appears e (more content not included)... [facility] 01-28-2024 Note Cardiology Progress Note Subjective Subjective: [...] 86 QT Interval 316 QTC CALCULATION(BAZETT) 453 R-Ponca 8 T Wave [place] 100 Impression Atrial fibrillation with rapid ventricular [...] (TTE) limited Result Date: 01/27/2024 1 1 [facility] [address] [place] [address] [phone] (fax) [facility]ogram[facility] Name: TITO GONCALVES Study Date: 01/27/2024 08:18 AM B/P: 147 mmHg/62 mmHg HR: 67 bpm Date of : 1945 Location: [facility] Height: 72 in. Age: 79 year(s) [...] fibrinous material noted. Procedure Staff Reading Group: [facility] [employer] Supervisor: MARLEY Donohue, RDCS Ordering Physician: LIONEL MENA Transthoracic echo (TTE) limited Result Date: 01/26/2024 1 1 [facility] [address] [place] [address] [phone] (fax) [facility]ocardiogram-[facility] Name: TITO GONCALVES Study Date: 01/26/2024 07:59 AM B/P: 129 mmHg/74 mmHg HR: Date of : 1945 Location: [facility] Height: 72 in. Age: 79 year(s) Patient Room: [facility] Weight: 242 lb. Gender: Male Patient Status: [...] size. Right ventr (more content not included)... [facility] 01-28-2024 Note Physical Therapy Physical Therapy Evaluation & Treatment Patient Name: Tito Goncalves : 1945 Today's Date: 01/28/2024 Time in: 1:53 pm Time out: 2:20 pm Total time: 27 minutes 01/28/24 1422 PT Last Visit PT Received On 01/28/24 General Subjective Both RN and pt agreeable to PT this afternoon. Pt denies pain and asleep upon senior mortgage underwriter entering room however easily awakens. Cognition Overall Cognitive Status WFL Arousal/Alertness Appropriate responses to stimuli Orientation Level Oriented X4 Following Commands Follows all commands and directions without difficulty Communication Intact Cognition Comments pt had difficulty navigating back to correct room after first bout of ambulation however after 2nd bout able to navigate back to room without external cues from senior mortgage underwriter. Therapeutic Exercise Therapeutic Exercise Time Entry [...] tray table within reach. PT Assessment PT Assessment/DIRECTOR CONTENT MARKETING Summary Pt continues to progress towards goals [...] vital signs throughout session 01/27/24 02/10/24 -- [facility] 01-28-2024 Note [facility] Medicine Daily Progress Note - 01/28/2024 11:20 AM; Room: [address] [place] [address] Admission: 01/24/2024 10:46 AM; Length of stay: 4 days THE HOSPITALIST TEAM PREFERS TO USE [email or web address] CHAT FOR COMMUNICATION 7AM-7PM. IF I DO NOT RESPOND WITHIN 15 MINUTES, PLEASE PAGE ME/CALL THROUGH THE CHUCKING MACHINE OPERATOR. FROM 7PM-7AM, PLEASE PAGE [phone](COVR) Code Status: Full Code Barriers to Discharge: [...] complication and patient was admitted to the [facility] for over night monitoring to be [...] Inpatient Problems Principal Problem: Paroxysmal atrial fibrillation ([facility]) Active Problems: Pericardial effusion Assessment and Plan [...] (Active) Date First Assessed/Time First Assessed: 01/25/24 0755 Hand Hygiene Completed: Yes Primary Wound Type: [...] mg, oral, Daily (more content not included)... [facility] 01-27-2024 Note ---- Attestation signed by Srinath [...] Progress Note - 01/27/2024 12:46 PM; Room: [address] [place] [address] Admission: 01/24/2024 10:46 AM; Length of stay: 3 days THE HOSPITALIST TEAM PREFERS TO USE [email or web address] CHAT FOR COMMUNICATION 7AM-7PM. IF I DO NOT RESPOND WITHIN 15 MINUTES, PLEASE PAGE ME/CALL THROUGH THE CHUCKING MACHINE OPERATOR. FROM 7PM-7AM, PLEASE PAGE [phone](COVR) Code Status: Full Code Barriers to Discharge: [...] Inpatient Problems Principal Problem: Paroxysmal atrial fibrillation ([facility]) Active Problems: Pericardial effusion Assessment and Plan [...] oral, Nightly ami (more content not included)... [facility] 01-27-2024 Note [facility] CARDIOLOGY INPAT IENT PROGRESS [...] -- 84 19 93 % -- 01/26/24 193 -- -- -- (!) 128 23 93 [...] 86 QT Interval 316 QTC CALCULATION(BAZETT) 453 R-Ponca 8 T Wave [place] 100 Impression Atrial fibrillation with rapid ventricular [...] function is normal. (more content not included)... [facility] 01-27-2024 Note ---- Attestation signed by Jay Benitez PT at 01/27/2024 11:18 AM This senior mortgage underwriter (PT) provided one-on-one supervision, direction of [...] showed pericardial effusion, pt went to lab coordinator for pericardiocentesis and currently has a pericardial [...] arthroplasty, right Stage 3a chronic kidney disease ([facility]/HCC) Subdural hematoma ([facility]) Type 2 diabetes mellitus without complication, without long-term current use of insulin ([facility]) Benign prostatic hyperplasia with urinary obstruction Calculus of ureter Diabetes mellitus ([facility]) Dry eyes Exposure keratitis Exudative age-related macular degeneration ([facility]) Family history of malignant neoplasm of skin Glaucoma Glycosuria Left corneal abrasion Proteinuria Paroxysmal atrial fibrillation ([facility]) Pericardial effusion Past Medical History: Diagnosis Date Abnormal ECG Arrhythmia Atrial fibrillation ([facility]) Heart valve disease Hypertension Sleep apnea Past [...] Level of Function Prior Function Level of [place]: Independent with ADLs and functional transfers, Independent [...] No upper extremity (more content not included)... [facility] 01-27-2024 Note Occupational Therapy Occupational Therapy Evaluation [...] Level of Function Prior Function Level of [place]: Independent with ADLs and functional transfers, Independent [...] Eating meals?: None (Independent) Total Score OT [facility]: 21 Assessment/Plan OT Assessment OT Impairments: Decreased ADL status, Decreased endurance, Decreased functional mobility OT Assessment/JUNIOR NETWORK ADMINISTRATOR Summary: (needs skilled OT due to weakness [...] times per wee (more content not included)... [facility] 01-26-2024 Note ---- Attestation signed by Lionel [...] Age - 79 y.[facility]. [facility] 1945 [id number] Date of Admission - 01/24/2024 10:46 AM [...] in limited echocar (more content not included)... [facility] 01-26-2024 Note ---- Attestation signed by Zoran [...] Lilibeth March MD, 150 mg at 01/24/242210 traZODone (Desyrel) tablet 50 mg, 50 mg, [...] Value Ventricular Rate 52 Atrial Rate 52 [place] Interval 184 QRS DURATION 84 QT Interval 424 QTC CALCULATION(BAZETT) 394 P [place] 79 R-[place]on[place] 51 T Wave [place] 76 Impression Sinus bradycardia Nonspecific T wave abnormality Abnormal ECG (more content not included)... [facility] 01-26-2024 Note 01/26/24 1243 Admission Assessment Questions Verify insurance with patient Yes Do you understand medical disease or what brought you into the hospital? Yes Who is your current PCP? Dr Metz in [place] Can I schedule a follow up appointment [...] No Does the patient have a case reviewer assigned to them through their insurance? No [...] to send link and activate MyChart? No [facility] 01-25-2024 Note ---- Attestation signed by Zoran [...] mg at 01/24/242210 sodium chloride 0.9 % infusion, 200 mL/hr, intravenous, Continuous, Oliver Crane MD, Last Rate: 100 mL/hr at 01/25/24 1200, 100 mL/hr at 01/25/24 1200 traZODone (Desyrel) tablet 50 mg, 50 mg, oral, Nightly, Lilibeth March MD, 50 mg at 01/24/242210 Objective: Patient Vitals for the past 24 [...] -- -- 55 15 97 % -- 01/25/2420 93/62 -- -- -- -- -- -- [...] 75/55 -- -- -- -- -- -- 01/25/24 0435 -- -- -- -- -- 97 % -- 01/25/24 0435 100/74 -- -- 55 14 -- -- 01/25/24 0430 -- -- -- 74 16 98 % -- 01/25/24 0425 -- -- -- 53 14 96 % -- 01/25/24 0420 -- -- -- 55 11 95 % -- 01/25/24 0418 70/53 -- -- -- -- -- -- 01/25/24 0 (more content not included)... [facility] 01-25-2024 Note Patient: Tito mejia Procedure Information Date/Time: 01/25/24 1800 Procedure: Pericardiocentesis Location: [facility]PERATOR 3 / [facility] (Cath) Providers: Oliver Crane MD [...] Plan discussed with attending. Additional Equipment Requests [facility] 01-25-2024 Note CLINICAL INFORMATION : Ground level [...] stability. *Pneumobilia. Approved by:Ryan Corrigan01/25/2024 6:34 AM. ITrenton,have reviewed the image(s) and agree with the findings in this report. Electronically signed: Trenton Martinez. 6 [facility] 01-25-2024 Note Responded to rr Hypotension fall [...] ordered d/w cardiology pt to move to [facility] 01-24-2024 Note Pharmacy Dosing Serv ice - Vancomycin Initial Consult Note Pharmacy has been consulted for the dosing and evaluation of Drug: Vancomycin Indication: surgical prophylaxis Other Antimicrobial Regimens: None Labs and Renal Function Total body weight: 112 kg (248 lb) [facility] body weight: 77.6 kg (171 lb 1.2 [...] is afebrile and hemodynamically stable. Presenting to [facility] for closure of left atrial appendage. [...] questions Thank you, Rose Tomas, PharmD, 01/24/24 [facility] 01-24-2024 Note Patient: Tito mejia Procedure Information Date/Time: 01/24/24 1300 Procedure: Left atrial appendage closure (transvenous) - ADRIENNE WILL CALL Location: [facility] / [facility] (Cath) Providers: Oliver Crane MD Clinical information reviewed: Allergies Meds Physical Exam Airway Mallampati: II TM distance: >3 FB Neck ROM: full Cardiovascular Rhythm: regular Rate: normal Dental Pulmonary Abdominal Anesthesia Plan ASA 3 other (Conscious sedation.) Anesthetic plan and risks discussed with patient. Use of blood products discussed with patient who consented to blood products. Additional Equipment Requests [facility] 01-11-2024 Note Amna Sousa CNP - patient's daughter- called with questions about her dad's upcoming LAAO procedure. She said you had given her instructions for him previously regarding coumadin, but she cannot find it. Can you please call her cell phone when you get a chance? [phone] If you need me to do anything, please let me know. Thanks! :) [facility] 10-31-2023 Evaluation note Encounter Date Diagnosis Assessment [...] are maintaining regular scheduled appts with their event organizer. Scheduled for LAAO procedure but postponed until spring. Fall precautions. Oct, Obstructive sleep apnea (ICD-10 - G47.33) Auto CPAP 10-15, Facial Mask This patient is aware of the benefits associated with CUBA: With continued use, the patient reduces the risk for OH, CVA, HTN, cardiac dysrhythmias and sudden cardiac [...] Exercise w/ goal of 10% weight loss [employer] Other 02-02-2024 NoteRight Eye Quality was good. Scan locations included subfoveal. Progression has been stable. Findings include abnormal foveal contour, disciform scar. Left Eye Quality was good. Scan locations included subfoveal. Progression has been stable. Findings include normal observations.[facility] [id number] History of Present illness Narrative* Jose R [...] now given soon to be trip to [place] as well as side effects from last treatment in August. He was provided an [place]msler grid to check daily and note any changes to this. He understands to get ahold of his retina specialist in [place] if there was a change. Will see [...] artificial tears were recommended. documented in this encounterScotland County [facility] [id number] [facility] Chief Complaint: [...] PSYCH: appropriate mood, affect, and judgement. Transesophageal Echocardiogram-[facility] Name: TITO GONCALVES Study Date: 09/16/2023 09:38 AM B/P: 136 mmHg/70 mmHg HR: Date of : 1945 Location: [facility] Height: 72 in. Age: 78 year(s) Patient Room : [facility] V[facility] POOL Weight: 246 lb. Gender: Male Patient Status: OutPt BSA: 2.33 m2 Indication: Atrial Fibrillation, Pre LAAO closure Examination: JESSICA/Limited Doppler/CFI, Agitated Saline, 3D images Image Quality: Good Patient Consent: Informed, written consent was obtained for the procedure s p @ c 3 Exam Location: A JESSICA was performed in the High Risk Case Manager without complications s p @ c 3 [...] should problems arise Maggy Murphy MD, MPH, [facility], [facility], [facility] Interventional Cardiology Pager Email: [email or web address] NoteUT Cardiology - [facility] Subjective Tito Goncalves is a 78 y.o. year old male patient being seen to discuss LAAO. He presented to [facility] ED in Jun 2023 for fall. He is anticoagulated with warfarin for afib. Back in December 2022 he had brain bleed s/p fall. Was treated at [facility]. He denies chest pain, SOB, [...] In April 2019 he presented to the [facility] with atrial fibrillation with controlled [...] Take 1 tablet (more content not included)... [facility]06-21-2023 History of Present illness Narrative* Shannen Chahal - 03/16/2023 11:20 AM EDT Ortho Nurse - Established Patient Intake Room#: 5 Date: 03/16/2023 11:20 AM Patient: Tito Goncalves MR#: [id number] : 1945 Age: 78 y.o. 1yr R [...] allergy, and sulfa antibiotics. * Azul Rachel APRN-ONLINE MERCHANDISING COORDINATOR - 03/16/2023 11:20 AM EDT HPI: Patient [...] have reviewed the findings of the clinical system support developer and agree with their assessment. Ortho Nurse - Established Patient Intake Room#: 5 Date: 03/16/2023 11:20 AM Patient: Tito Goncalves MR#: [id number] : 1945 Age: 78 y.o. 1yr R [...] allergy, and sulfa antibiotics. documented in this [facility]04-29-2023 Evaluation note* Encounter Date Diagnosis Assessment Notes Treatment Notes Treatment Clinical Notes Dec, Subarachnoid hemorrhage (ICD-10 - I60.9) [employer] Other 04-12-2023 Evaluation note* Encounter Date Diagnosis [...] are maintaining regular scheduled appts with their event organizer. Dec, Obstructive sleep apnea (ICD-10 - G47.33) Auto CPAP -, Facial Mask This patient is aware of the benefits associated with CUBA: With continued use, the patient reduces the risk for OH, CVA, HTN, cardiac dysrhythmias and sudden cardiac [...] and weight loss. Improved control of BS [employer] Other 02-15-2023 Evaluation note* Encounter Date Diagnosis Assessment Notes Treatment Notes Treatment Clinical Notes Oct, Cholecystitis (ICD-1 0 - K81.9) [employer] Other 02-14-2023 NotePatient Education Material [facility] FOLLOW UP CARE ? [...] physician?s office at: THANK YOU FOR CHOOSING [facility] FOR YOUR PROCEDURE! [phone] This information is not intended to replace advice given to you by your health care provider. Make sure you discuss any questions you have with your health care provider. ExitCare? Patient Information ?2016 [employer]. Custom Education added 09/2018[facility]02-14-2023 NoteNursing Discharge Summary Entered On: 11/09/2022 8:44 [...] : Verbalizes understanding Sariah Schreiber RN R - 11/09/2022 8:43 EST Safety Education Adult Grid Safety, Fall : Verbalizes understanding Sariah Schreiber RN R - 11/09/2022 8:43 EST Additional Session Learner/s Present : Daughter Sariah Schreiber RN R - 11/09/2022 8:43 ESTSC[facility] Foundation01-09-2023 Evaluation note* Encounter Date Diagnosis Assessment Notes [...] use, the patient reduces the risk for OH, CVA, HTN, cardiac dysrhythmias and sudden cardiac [...] INR being monitored, no bleeding complications noted [employer] Other 10-13-2022 History of Present illness Narrative* Luis Wang LPN - 07/08/2022 11:20 AM EDT Ortho Nurse - Established Patient Intake Room#: 2 4 month Right TKA, some pain of 1-2 when weed eating, going great Date: 07/08/2022 11:51 AM Patient: Tito Goncalves MR#: [id number] : 1945 Age: 77 y.o. Referring Physician: [...] have reviewed the findings of the clinical system support developer and agree with their assessment. Ortho Nurse - Established Patient Intake Room#: 2 4 month Right TKA, some pain of 1-2 when weed eating, going great Date: 07/08/2022 11:51 AM Patient: Tito Goncalves MR#: [id number] : 1945 Age: 77 y.o. Referring Physician: [...] allergy, and sulfa antibiotics. documented in this encounterKettering [facility]08-08-2022 Hospital Discharge instructions Patient Education [...] urethra. Follow these instructions at home: Take [id number] and prescription medicines only as told by [...] 09/12/2006 Document Revised: 08/07/2019 Document Reviewed: 10/17/2017 [employer] Patient Education 2020 [employer]. Follow Up Care 04/27/2021 11:05:10 With:GAGE UMAZNOR, Mc Blackman, URL Address: [facility] [address] [place] [place] [address] [phone] When: Unknown Comments:KIM [facility] 07-14-2022 History of Present illness Narrative* Shannen Chahal - 04/08/2022 10:00 AM EDT Ortho Nurse - Established Patient Intake Room#: 5 Date: 04/08/2022 9:50 AM Patient: Tito Goncalves MR#: [id number] : 1945 Age: 77 y.o. 3wk S/P R TKA Pt stated he is doing pretty good and states he has little pain when getting up in the morning and getting off the toilet, 0/10 on the pain scale at today's visit. Pt was wearing his vián hose and using a cane at the [...] allergy, and sulfa antibiotics. * Azul Rachel APRN-ONLINE MERCHANDISING COORDINATOR - 04/08/2022 10:00 AM EDT HPI: Tito [...] roller. All pertinent portions of the clinical system support developer documentation was reviewed and agree. EDYTA Ayala I have reviewed the findings of the clinical system support developer and agree with their assessment. EDYTA Ayala Ortho Nurse - Established Patient Intake Room#: 5 Date: 04/08/2022 9:50 AM Patient: Tito Goncalves MR#: [id number] : 1945 Age: 77 y.o. 3wk S/P [...] allergy, and sulfa antibiotics. documented in this [facility]06-21-2022 Miscellaneous Notes* Nursing Notes - Kirsten [...] of Care Review Outcome: Ongoing Flowsheets (Taken 03/16/2022308) Plan Of Care Reviewed With: patient Problem: [...] Taken 03/16/2022308 Positioning/Transfer Devices: pillows Note: IVÁN Ramirez, Foot [...] RN - 02/18/2022 1:25 PM EDT 02/18/22 8244 Information Source Information Source patient Contact Information Director Digital Catalogue Name Gini Medrano RN Case Manager's Living [...] that he plans to return home with [facility]. The patient states that his daughter [...] assist with discharge plans. documented in this encounterKettering [facility] Center06-21-2022 Note* Nursing Notes - Kirsten Crawford RN - 03/16/2022 3:01 PM EDT Discharge instructions gone over with pt and pt's daughter at this time by Regina GAVIN. Both, verbalize understanding and deny any further questions. Hemovac drain removed at this time, tip intact upon removal, pt tolerated well. [facility]06-21-2022 History of Present illness Narrative* Blanca Peck, DIRECTOR CONTENT MARKETING - 03/16/2022 2:21 PM EDT 03/16/22 1421 [...] Transfer Skill: Sit To Stand, Rehab Eval [place] (Sit-Stand Transfers) (mod I) Physical Assist/Nonphysical Assist: Sit/Stand 1 person assist Weight-Bearing Restrictions: Sit/Stand weight-bearing as tolerated Assistive Device For Transfer: Sit/Stand armed chair Gait Skills, PT Eval Level of [place]: Gait (mod I) Weight-Bearing Restrictions: Gait weight-bearing as tolerated Assistive Device For Transfer: Gait 2 wheeled walker Gait Distance (600ft; patient demonstrates a good quality heel - toe pattern consistently throughtout treatment) Stair Negotiation [place] Level: Stair Negotiation supervision Physical Assist: Stair [...] has returned from PT. * Colin Fontaine, [facility],PharmD - 03/16/2022 11:58 AM EDT AOP Patient Education on Meds to Beds Scripts AOP received prescriptions for Tito Goncalves for bedside delivery at discharge Prescriptions filled and ready Medication Copay Acetaminophen 325mg 4.00 Oxycodone 5mg 8.60 Tab-A-Lesly 4.00 Docusate 100mg 4.00 Total $ 20.60 Birgit Henriquez (Canopy Inspector) reviewed medications with patient regarding indications, directions [...] Sit to Stand, Rehab Eval Level of [place]: Sit/Stand contact guard Physical Assist/Nonphysical Assist: Sit/Stand 1 person assist Weight-Bearing Restrictions: Sit/Stand weight-bearing as tolerated Assistive Device for Transfer: Sit/Stand wheeled walker;armed chair Transfer Skill: Stand to Sit, Rehab Eval Level of [place]: Stand/Sit contact guard Physical Assist/Nonphysical Assist: Stand/Sit [...] Eval) ADL retraining;balance training;transfer training PRIOR LEVEL AM-[facility] Activity Inpatient Short Form Putting on/Taking Off Lower Body Clothing 4 - No Assistance Bathing 4 - No Assistance Toileting 4 - No Assistance Putting on/Taking Off Upper Body Clothing 4 - No Assistance Grooming 4 - No Assistance Eating 4 - No Assistance PRIOR LEVEL AM-[facility] Activity Raw Score 24 PRIOR LEVEL AM-[facility] Activity Functional Limitation/Modifier 0.00% Prior Functional Impairment in Daily Activity CURRENT [facility] Daily Activity Inpatient Short Form Putting on/Taking Off Lower Body Clothing 3 - A Little Assistance Bathing 3 - A Little Assistance Toileting 3 - A Little Assistance Putting on/Taking Off Upper Body Clothing 3 - A Little Assistance Grooming 3 - A Little Assistance Eating 4 - No Assistance CURRENT [facility] Activity Raw Score 19 CURRENT AM-[facility] Activity Functional Limitation/Modifier 42.80% Currently Impaired [...] initiation of treatment Therapist Information License # [id number] In addition to above, ambulated with CGA using FWW. Reclined in chair at end of session with his call light and personal items placed in reach. Jennifer Saab OTR/L 03/16/2022 * Pato Gutierrez - 03/16/2022 11:46 AM EDT Pharmacy to Dose - Warfarin Note PATIENT: Tito Goncalves [facility] Desired INR range: 2-3 Indication(s): Atrial Fibrillation Medications: No drug interactions were identified based on the patient's current therapy. Current Diet Status: Regular Recent bleeding/bleeding event: None noted Last labs: INR Date Value Ref Range Status 03/16/2022 1.37 (H) 0.85 - 1.10 Final Comment: 2.0-3.0 THERAPEUTIC RANGE 2.5-3.5 MECHANICAL VALVE RANGE Testing performed at [place], [place] [address] - ALBUMIN Date Value Ref Range Status 03/16/2022 3.3 (L) 3.5 - 5.0 G/dl Final - Plan: An order was placed for Coumadin 7.5 mg today x 1 based on INR = 1.37. A Pharmacist will continue to follow and make dose changes as clinically appropriate. Please contact pharmacy if there are any questions. Signed: Lopez Villafana Phone: [phone] Date/Time: 03/16/2022 11:46 AM * Addam Kudla, PT - 03/16/2022 10:16 AM EDT 03/16/22 [...] 3/5) LLE WFL Supine to Sit Mobility [place] Level: Supine->Sit stand-by assist Physical Assist: Supine->Sit (1 person) Bed Features/Set-up: Supine->Sit Head of bed elevated Skilled Rationale Verbal cues;Sequencing Sit to Stand Transfer [place] Level: Sit->Stand stand-by assist Physical Assist: Sit->Stand (1 person) Assistive Device: Sit->Stand 2 wheeled walker;gait belt Skilled Rationale Verbal cues;Hand placement;Sequencing Stand to Sit Transfer [place] Level: Stand->Sit stand-by assist Physical Assist: Stand->Sit (1 person) Assistive Device: Stand->Sit 2 wheeled walker;gait belt Skilled Rationale Verbal cues;Hand placement;Sequencing;Controlled descent for sitting Sitting Balance Static Sitting-Level of Assistance Independent Standing Balance Static Standing-Level of Assistance Stand-by assist Dynamic Standing-Level of Assistance Stand-by assist Standing-Balance Support 2 wheeled walker;Gait belt Skilled Rationale Verbal cues;Full extension to upright positioning/posture;Upright gaze/neck extension Gait Assessment [place] Level: Gait contact guard assist Physical Assist: [...] ARTHROPLASTY KNEE TOTAL Left 06/23/2015 CHOLECYSTECTOMY 2012 computer terminal operator goals, to be achieved [...] (248 lb) 02/08/18 117.9 kg (260 lb) [facility] body weight: 77.6 kg (171 lb 1.9 [...] plan. Patient plans to return home with [facility]. His daughter will be staying with [...] Warfarin and PT/INR management. Questions answered regarding [facility], patient denies any other questions or needs at this time. Referral information with orders for PT/INR faxed to [facility], spoke with staff who confirm start of care for tomorrow. Follow up appointment scheduled for 04/08/22 @ 10:00 am. * [employer] [facility],PharmD - 03/15/2022 6:24 PM EDT Pharmacy to Dose - Warfarin Note PATIENT: Tito Goncalves [facility] Desired INR range: 2-3 Indication(s): Atrial Fibrillation Last labs: INR Date Value Ref Range Status 03/15/2022 1.36 (H) 0.85 - 1.10 Final Comment: 2.0-3.0 THERAPEUTIC RANGE 2.5-3.5 MECHANICAL VALVE RANGE Testing performed at [facility], [place], [place] [address] - ALBUMIN Date Value Ref Range Status 02/18/2022 3.8 3.5 - 5.0 G/dl Final - Plan: An order was placed for 5 mg based on current Home Dosage. A Pharmacist will continue to follow and make dose changes as clinically appropriate. Please contact pharmacy if there are any questions. Signed: [employer] RPh,PharmD, Pharmacist Phone: [phone] Date/Time: 03/15/2022 6:24 PM * Samantha Miner [...] you require anything further documented in this encounterKettering [facility]06-21-2022 Note* Nursing Notes - Dian [...] inserted catheter and how to remove it. Tiot is aware the [place] is [...] anxious to head home and settle in. [facility]06-21-2022 Hospital Discharge instructions* Discharge Instructions* Kirsten Crawford [...] days or until therapeutic with results to [facility] [facility]. , Contact Office ([phone]) if: > Total Knee ROM < 90 [...] sent through Care Everywhere. * docusate (oral/rectal) (Yemeni) * oxycodone (Yemeni) documented in this encounterKettering [facility] Center06-21-2022 Note* Plan of Care - Regina Rios [...] discharge/transition of care. Outcome: Adequate for Discharge [facility]06-21-2022 Note* Nursing Notes - Kirsten Crawford RN - 03/16/2022 11:39 AM EDT Assessment unchanged from previous by this nurse unless otherwise noted in flowsheet T [facility]06-21-2022 Hospital course Narrative* Domenico Ferguson MD - 03/16/2022 8:54 AM EDT Images from the original note were not included. Discharge Summary Name: Tito Goncalves Age: 77 y.o. Birthday: 1945 Admit Date: 03/15/2022 8:10 AM Discharge Date: 03/16/2022 Discharge Time: 03/16/2022 Discharge Unit: [facility] Rehab unit Unit Length of Stay: [...] insulin restless leg. Kidney stones, admitted to [facility] for elective rig ht total knee [...] as: COUMADIN STOP taking these medications Glucosamine-Chondroitin 4881-5568 MG/30ML LIQD Follow-up: No follow-up provider specified. Upcoming Appointments (up to five)-Some appointments for Medical Center outpatient clinics or diagnostic testing locations are not displayed below Provider Department Dept Phone 04/08/2022 10:[address] [facility] Orthopedics [phone] Total coordination of discharge care taking greater that 35 minutes documented in this [facility]06-21-2022 Note* Plan of Care - Birgit [...] Devices: pillows Note: IVÁN Hose, Foot pumps [facility]06-21-2022 Note* Nursing Notes - Birgit Thakur RN - 03/16/2022 3:09 AM EDT Assessment remains unchanged unless otherwise noted in flow sheet. Pt denies pain. Neuro/pulses unchanged. New bag of NS hung at this time. Vitals WDL. Pt denies any needs and call light is in reach. [facility]* Nursing Notes - Birgit Thakur RN - 03/15/2022 11:59 PM EDT Assessment remains unchanged unless otherwise noted in flow sheet. Pt denies any pain. Neuro/pulsesunchanged. NS infusing @ 100ml/hr and Ancef administered. Pt denies any needs and call light is in reach. [facility]* Nursing Notes - Birgit Thakur RN - 03/15/2022 8:06 PM EDT RT called at this time due to O2 change from 1.5 to 1L. Pt also has home CPAP/BIPAP device. RT made[place]. [facility]06-20-2022 Note* Nursing Notes - Araseli Ron RN - 03/15/2022 5:53 PM EDT Patient tolerating clear liquids at this time, diet advanced per orders. [facility]06-20-2022 Consult note* Javier-Cameron Ferguson MD - 03/15/2022 4:10 PM EDT History and Physical Examination 03/15/22 4:10 PM Chief Complaint: Right total knee arthroplasty History of Present Illness: Patient is a 77 y.o. male presents for [facility] for elective right total knee arthroplastyDr. Foster [...] mg by mouth daily. Historical Provider Glucosamine-Chondroitin 8550-1686 MG/30ML Liquid Take by mouth. Historical Provider [...] 81 mg by mouth daily. 03/04/2022 Glucosamine-Chondroitin 2000-2182 MG/30ML Liquid Take by mouth. Multiple Vitamins-Minerals [...] OT, ST and SW. Domenico Ferguson MD [facility]06-20-2022 Consult note* Domenico Ferguson MD - 03/15/2022 4:10 PM EDT History and Physical Examination 03/15/22 4:10 PM Chief Complaint: Right total knee arthroplasty History of Present Illness: Patient is a 77 y.o. male presents for [facility] for elective right total knee arthroplastyDr. Foster [...] mg by mouth daily. Historical Provider Glucosamine-Chondroitin 5267-7125 MG/30ML Liquid Take by mouth. Historical Provider [...] 81 mg by mouth daily. 03/04/2022 Glucosamine-Chondroitin 3340-9300 MG/30ML Liquid Take by mouth. Multiple Vitamins-Minerals [...] SW. Domenico Ferguson MD documented [facility]* Nursing Notes - Araseli Ron RN - 03/15/2022 2:26 PM EDT Patient to OR at this time. [employer] [id number] Note* Nursing Notes - Araseli Ron RN - 03/15/2022 11:57 AM EDT Patient assessment unchanged from previous. Patient ambulated to bathroom and voided. Patient denies any needs at this time. Call light in reach. [employer] [id number] Note* Nursing Notes - Gini Medrano RN - 02/18/2022 1:25 PM EDT 02/18/22 7827 Information Source Information Source patient Contact Information Director Digital Catalogue Name Gini Medrano RN Case Manager's Living [...] that he plans to return home with [facility]. The patient states that his daughter [...] to follow and assist with discharge plans. [facility]04-28-2022 History of Present illness Narrative* Luis Wang LPN - 2022 1:10 PM EDT Ortho Nurse - Established Patient Intake Room#: 1 Right knee pain of 9, no interventions, falls, or injuries, came in today with left knee pain, left knee revision 2016 Dr Bedoya Date: 2022 1:06 PM Patient: Tito Goncalves MR#: [id number] : 1945 Age: 77 y.o. Referring Physician: [...] a right total knee arthroplasty for optimal correction management. PHYSICAL EXAM: This is an alert, [...] joint space, subchondral sclerosis, osteophyte formation, and nfpe-db-hqbd contact with posterior loosebodies. He has a [...] of limb, and ultimately loss of life. USP expectations, risks and general implant surv ivorship were also discussed. Despite these risks, the patient would like to proceed with surgical planning. Today, we will initiate the pre-surgical process including nasal MRSA screening, scheduling an appointment for [facility] and the potential surgical date, and reviewing [...] Swelling Sulfa Antibiotics Swelling documented in this encounter[facility] Evaluation note* Encounter Date Diagnosis Assessment Notes Treatment Notes Treatment Clinical Notes Oct, Choledocholithiasis (ICD-10 - K80.50) Oct, Pancreatic cyst (ICD -10 - K86.2) [employer] Other Evaluation + Plan note No data available for this section [facility] evaluation note* Diagnosis Right knee pain, unspecified chronicity- Primary Pain in prosthetic joint, sequela documented in this encounter [facility]Evaluation [facility]* Diagnosis Preop testing- Primary Preoperative examination, [...] documented in this encounter [facility] noteNo InformationNortLe[facility] [employer] Other Evaluation note* Diagnosis Hx of total knee arthroplasty, right- Primary [facility]* Diagnosis Hx of total knee arthroplasty, right- Primary documented in this encounter [facility] noteN/ADept. of Dermatology Evmsaation note* Diagnosis Hx of total knee arthroplasty, right- Primary documented in this encounter [facility]* Diagnosis 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- Primary Age-related nuclear cataract of both eyes Dry eyes Unspecified tear film insufficiency [facility] encounter [facility] Diagnosis Onset Date Resolution Status Atrial fibrillation acute Chronic kidney disease acute GERD (gastroesophageal reflux disease) acute Hemopericardium acute Hypercholesterolemia acute Hypertension acute CUBA (obstructive sleep apnea) acute [facility] Work Phone: Evaluation note* Diagnosis Onset Date Resolution Status Atrial fibrillation acute Chronic kidney disease acute Hemopericardium acute Hypertension acute Obesity acute CUBA (obstructive sleep apnea) acute Cellulitis of right upper extremity noneactive [facility] Work Phone: Evaluation note* Diagnosis Onset Date Resolution Status Atrial fibrillation acute Chronic kidney disease acute Hemopericardium acute Hypertension acute Obesity acute CUBA (obstructive sleep apnea) acute Cellulitis of right upper extremity noneactive Atrial fibrillation acute Chronic kidney disease acute Hypertension acute Obesity acute CUBA (obstructive sleep apnea) acute Type 2 diabetes mellitus with hyperglycemia acute [facility] Work Phone: Evaluation note* Diagnosis Onset [...] Type 2 diabetes mellitus with hyperglycemia acute [facility] Work Phone: evaluation note* Diagnosis Onset Date Resolution Status Atrial [...] diabetes mellitus with hyperglycemia acute COVID noneactive [facility] Work Phone: Evaluation note* Diagnosis Onset Date Resolution Status Anemia acute Atrial fibrillation acute Chest pain acute Chronic kidney disease acute Hypertension acute CUBA (obstructive sleep apnea) acute Type 2 diabetes mellitus with hyperglycemia acute Hypertension acute Type 2 diabetes mellitus with hyperglycemia acute COVID noneactive Abrasion of ear canal acute [facility] Work Phone: Evaluation note* Diagnosis PLMD (periodic limb movement disorder)- Primary Periodic limb movement disorder CUBA (obstructive sleep apnea) Obstructive sleep apnea (adult) (pediatric) Daytime hypersomnolence Primary insomnia Persistent disorder of initiating or maintaining sleep Snoring Other dyspnea and respiratory abnormality [facility] Diagnosis Onset Date Resolution Status Hypertension acute Type 2 diabetes mellitus with hyperglycemia acute COVID noneactive Abrasion of ear canal acute Atrial fibrillation acute Chronic kidney disease acute Hypertension acute Obesity acute CUBA (obstructive sleep apnea) acute Type 2 diabetes mellitus with hyperglycemia acute [facility] Work Phone: History general Narrative - Reported* Type Description Date Medical History hyperlipidemia Medical History GERD Medical History HTN Medical History a.fib Medical History recurrent choledocholithiasis Surgical History LEFT KNEE Surgical History CHOLECYSTECTOMY 2012 Hospitalization History see above [employer] Other [employer] general Narrative - Reported* Type Description Date [...] obesity Surgical History Arthroscopy of left knee 2008 Surgical History CHOLECYSTECTOMY 2012 Surgical History Amputation of ring finger left hand 1970 Surgical History ERCP stint removal 2012 Surgical History Cardio-version (A-Fib) 2012 Surgical History Cardio-version (A-Fib) 2013 Surgical History ERCP (stone removal) 2014 Surgical History ERCP w/ stone removal 10/2022 Hospitalization History see above [employer] Other History general Narrative - Reported* Type Description Date Medical History Adrenal nodule Medical History Osteoarthritis of right knee Medical History Gastro-esophageal re flux disease with esophagitis, without bleeding Medical History Obstructive sleep apnea Medical History Non-rheumatic mitral regurgitati on Medical History Essential hypertension Medical History Hyperlipidemia, mixed Medical History Stage 3a chronic kidney disease (CKD) Medical History Controlled type 2 diabetes jeremiei tus with hyperglycemia Medical History Paroxysmal atrial [...] stone removal 10/2022 Hospitalization History see above [employer] Other [employer] general Narrative - Reported* Type Description Date [...] History Colonoscopy 2020 Hospitalization History see above [employer] Other Hospital Discharge instructions Additional Instructions 1. Sleep on 2 pillows 2. You may shower late tomorrow afternoon, keep wounds dry and clean 3. Small amount of Vaseline to sutures twice daily 4. Tylenol or Motrin for discomfort 5. See Dr. Freitas in 1 [facility] Work Phone: Progress note No data available for this section [facility] reason for referral (narrative)* Name Reason for referral NA NA Dept. of Dermatology Reason for visit Narrative* Auth/Cert Specialty Diagnoses / Procedures Referred By Bret chan Referred To Contact Diagnoses Osteoarthritis of right knee, unspecified osteoarthritis type Osteoarthritis of right knee, unspecified osteoarthritis type [M17.11] Procedures [place] TOTAL KNEE ARTHROPLASTY ARTHROPLASTY KNEE TOTAL Pastor Bedoya MD [address] [phone] Referral ID Status Reason Start Date Expiration Date Visits Re quested Visits Authorized [id number] 02/01/2022 1 1 [facility] Summary Purpose Family History No Family History [...] XR KNEE LEFT 3 VIEWS Azul Rachel, PRECINCT POLICE CAPTAIN-[employer]BI [address] [place] [phone] Specialty Diagnoses / Procedures Referred By Contac t Referred To Contact Diagnoses Pain in prosthetic joint, sequela Procedures XR KNEE LEFT 3 VIEWS Pastor Bedoya MD [address] [place] [phone] Referral ID Status Reason Start Date Expiration Date V isits Requested Visits Authorized [id number] New Request 2022 02/15/2023 1 1 Specialty Diagnoses / Procedures Referred By Contac t Referred To Contact Diagnoses Right knee pain, unspecified chronicity Procedures XR KNEE RIGHT 4+ VIEWS Pastor Bedoya MD [address] [place] [phone] Referral ID Status Reason Start Date Expiration Date V isits Requested Visits Authorized [id number] New Request 01/15/2022 02/09/2023 1 1 Specialty Diagnoses / Procedures Referred By Contac t Referred To Contact Social Work Diagnoses Restless leg syndrome Stage 3a chronic kidney disease S/P total knee arthroplasty, right Paroxysmal atrial fibrillation Type 2 diabetes mellitus without complication, without long-term current use of insulin Domenico Ferguson MD [address] [place] [address] Referral ID Status Reason Start Date Expiration Date V isits Requested Visits Authorized [id number] New Request 03/16/2022 04/10/2023 1 1 Specialty Diagnoses / Procedures Referred By Contac t Referred To Contact Diagnoses Acute postoperative pain of right knee Samantha Miner [address] [place] [id number] Referral ID Status Reason Start Date Expiration Date V isits Requested Visits Authorized [id number] New Request 03/15/2022 04/09/2023 1 1 Scheduling Instructions . Specialty Diagnoses / Procedures Referred By Contac t Referred To Contact Physical Therapy Diagnoses Hx of total knee arthroplasty, right Azul Rachel, PRECINCT POLICE CAPTAIN-ONLINE MERCHANDISING COORDINATOR [address] [place] [address] [facility] [address] [place] [address] Referral ID Status Reason Start Date Expiration Date V isits Requested Visits Authorized [id number] New Request 04/08/2022 05/03/2023 1 1 Specialty Diagnoses / Procedures Referred By Contac t Referred To Contact Diagnoses Hx of total knee arthroplasty, right Procedures XR KNEE RIGHT 3 VIEWS Azul Rachel, PRECINCT POLICE CAPTAIN-ONLINE MERCHANDISING COORDINATOR [address] [place] [address] Referral ID Status Reason Start Date Expiration Date V isits Requested Visits Authorized [id number] New Request 03/31/2022 04/25/2023 1 1 Specialty Diagnoses / Procedures Referred By Contac t Referred To Contact Diagnoses Hx of total knee arthroplasty, right Procedures XR KNEE RIGHT 3 VIEWS Pastor Bedoya MD [address] [place] [address] Referral ID Status Reason Start Date Expiration Date V isits Requested Visits Authorized [id number] New Request 07/02/2022 07/27/2023 1 1 Specialty Diagnoses / Procedures Referred By Bret chan Referred To Contact Diagnoses Hx of total knee arthroplasty, right Procedures XR BONE LENGTH STUDY Pastor Bedoya MD [address] [place] [address] Referral ID Status Reason Start Date Expiration Date V isits Requested Visits Authorized [id number] New Request 07/02/2022 07/27/2023 1 1 Referral ID Status Reason Start Date Expiration Date V isits Requested Visits Authorized [id number] New Request 03/15/2023 04/08/2024 1 1 History of Present Illness * Azul Rachel, PRECINCT POLICE CAPTAIN-ONLINE MERCHANDISING COORDINATOR - 03/20/2020 11:20 AM EDT HPI: Patient [...] have reviewed the findings of the clinical system support developer and agree with their assessment. Ortho Nurse Established Patient Intake Room#: 5 Date: 03/20/2020 11:10 AM Patient: Tito Goncalves MR#: [id number] : 1945 Age: 75 y.o. 3 yr [...] 03/20/2020 11:10 AM Patient: Tito Goncalves MR#: [id number] : 1945 Age: 75 y.o. 3 yr [...] follow up [facility] follow up, chest pain [phone] sinus problems Reason for Visit Atrial fibrillation Chronic kidney disease Hypertension Obesity CUBA (obstructive sleep apnea) Type 2 diabetes mellitus with hyperglycemia Anemia Atrial fibrillation Chest pain Chronic kidney disease Hypertension CUBA (obstructive sleep apnea) Type 2 diabetes mellitus with hyperglycemia Hypertension Type 2 diabetes mellitus with hyperglycemia COVID Chief Complaint [facility] follow up, chest pain [phone] sinus problems Rt ear pain Reason for Visit Anemia Atrial fibrillation Chest pain Chronic kidney disease Hypertension CUBA (obstructive sleep apnea) Type 2 diabetes mellitus with hyperglycemia Hypertension Type 2 diabetes mellitus with hyperglycemia COVID Abrasion of ear canal Chief Complaint [phone] sinus p roblems Rt ear pain wellness Reason for Visit Hypertension Type 2 diabetes mellitus with hyperglycemia COVID Abrasion of ear canal Atrial fibrillation Chronic kidney disease Hypertension Obesity [...] section and content) DATE CREATED AUTHOR 03/21/2018 [facility] DATE CREATED AUTHOR AUTHOR'S ORGANIZ ATION 06/15/2019 [facility] DATE CREATED AUTHOR AUTHOR'S ORGANIZ ATION 03/25/2022 [facility] DATE CREATED AUTHOR AUTHOR'S ORGANIZ ATION 05/04/2022 [facility] DATE CREATED AUTHOR AUTHOR'S ORGANIZ ATION 10/04/2022 [facility] DATE CREATED AUTHOR AUTHOR'S ORGANIZ ATION 02/02/2023 [facility] DATE CREATED AUTHOR AUTHOR'S ORGANIZ ATION 03/05/2023 [facility] DATE CREATED AUTHOR AUTHOR'S ORGANIZ ATION 03/20/2023 [facility] DATE CREATED AUTHOR AUTHOR'S ORGANIZ ATION 07/12/2023 [facility] DATE CREATED AUTHOR AUTHOR'S ORGANIZ ATION 03/06/2024 [facility] DATE CREATED AUTHOR AUTHOR'S ORGANIZ ATION 06/28/2024 [facility] DATE CREATED AUTHOR AUTHOR'S ORGANIZ ATION 07/13/2024 [facility] Reason for Visit (unrecogniz ed section and content) Reason Comments Follow-up Status Reason Specialty Diagnoses / Procedures Referred By Contact Referred To Contact New Request Diagnoses History of revision of total replacement of left knee joint Procedures XR KNEE LEFT 3 VIEWS Azul Rachel, PRECINCT POLICE CAPTAIN-ONLINE MERCHANDISING COORDINATOR [address] [place] [phone] Reason Comments Pain Specialty Diagnoses / Procedures Referred By Contac t Referred To Contact Diagnoses Pain in prosthetic joint, sequela Procedures XR KNEE LEFT 3 VIEWS Pastor Bedoya MD [address] [place] [phone] Referral ID Status Reason Start Date Expiration Date V isits Requested Visits Authorized [id number] New Request 2022 02/15/2023 1 1 Specialty Diagnoses / Procedures Referred By Contac t Referred To Contact Diagnoses Right knee pain, unspecified chronicity Procedures XR KNEE RIGHT 4+ VIEWS Pastor Bedoya MD [address] [place] [phone] Referral ID Status Reason Start Date Expiration Date V isits Requested Visits Authorized [id number] New Request 01/15/2022 02/09/2023 1 1 Specialty Diagnoses / Procedures Referred By Contac t Referred To Contact Diagnoses Hx of total knee arthroplasty, right Procedures XR KNEE RIGHT 3 VIEWS Azul Rachel, PRECINCT POLICE CAPTAIN-ONLINE MERCHANDISING COORDINATOR [address] [place] [address] Referral ID Status Reason Start Date Expiration Date V isits Requested Visits Authorized [id number] New Request 03/31/2022 04/25/2023 1 1 Reason Comments Post Op Visit Specialty Diagnoses / Procedures Referred By Contac t Referred To Contact Diagnoses Hx of total knee arthroplasty, right Procedures XR KNEE RIGHT 3 VIEWS Pastor Bedoya MD [address] [place] [address] Referral ID Status Reason Start Date Expiration Date V isits Requested Visits Authorized [id number] New Request 07/02/2022 07/27/2023 1 1 Referral ID Status Reason Start Date Expiration Date V isits Requested Visits Authorized [id number] New Request 03/15/2023 04/08/2024 1 1 Reason Comments Retinal Injection Reason Comments Sleep Apnea Care Teams (unrecognized sec tion and content) [...] End: June 04, 2024 Blanca Lay APRN NP-C Attending Provider Active Start: May End: June [...] February 27, 2024 End: February 27, 2024 State Fire Marshal Relationship Specialty Start Date End Date Augustine Metz DO [address] [place] [address] PCP - General Internal Medicine 01/24/17 State Fire Marshal Relationship Specialty Start Date End Date Augustine Metz, DO [address] [facility] [place] [address] PCP - General Internal Medicine 01/24/17 State Fire Marshal Relationship Specialty Start Date End Date Augustine Metz, DO [address] [facility] [place] [address] PCP - General Internal Medicine 01/24/17 State Fire Marshal Relationship Specialty Start Date End Date Augustine Metz, DO [address] [facility] [place] [address] PCP - General Internal Medicine 01/24/17 State Fire Marshal Relationship Specialty Start Date End Date Augustine Metz DO [address] [facility] [place] [address] PCP - General Internal Medicine 01/24/17 State Fire Marshal Relationship Specialty Start Date End Date Augustine Metz DO [address] [facility] [place] [address] PCP - General Internal Medicine 01/24/17 State Fire Marshal Relationship Specialty Start Date End Date Augustine Metz, DO [address] [facility] [place] [address] PCP - General Internal Medicine 01/24/17 State Fire Marshal Relationship Specialty Start Date End Date Augustine Metz DO [address] [facility] [place] [address] PCP - General Internal Medicine 01/24/17 State Fire Marshal Relationship Specialty Start Date End Date Augustine Metz DO [address] [facility] [place] [address] PCP - General Internal Medicine 01/24/17 State Fire Marshal Relationship Specialty Start Date End Date Augustine Metz MD [address] [place] [address] PCP - General Internal Medicine 06/02/23 State Fire Marshal Relationship Specialty Start Date End Date Augustine Metz MD [address] [place] [address] PCP - General Internal Medicine 06/02/23 Team [...] January 31, 2024 End: January 31, 2024 State Fire Marshal Relationship Specialty Start Date End Date Augustine Metz MD [address] [place] [address] PCP - General Internal Medicine 06/02/23 Christin Bolton MD [address] [address] [place] [address] Referring Physician Dermatology 02/15/24 Augustine Freitas DO [address] [place] [address] Otolaryngology 02/15/24 State Fire Marshal Relationship Specialty Start Date End Date Augustine Metz MD [address] [place] [address] PCP - General Internal Medicine 06/02/23 Christin Bolton MD [address] [place] [address] Referring Physician Dermatology 02/15/24 Augustine Freitas DO [address] [place] [address] Otolaryngology 02/15/24 Team Status: Active Member Role Status Dates Augustine Metz DO Primary Care Provide r, Attending Provider Active Start: June 27, 2024 Team Status: Inactive Member Role Status Dates Augustine Metz DO Primary Care Provide r, Attending Provider Active Start: July 09, 2024 End: July 09, 2024 Scheduled Active and Recently Administ ered [...] 2104 (Given - Provider: Birgit Thakur RN) 030 (Given - Provider: Birgit Thakur RN)0811 (Given [...] 92 HR 78) 0810 (Given - Provider: Kirstne Crawford RN) ceFAZolin (ANCEF) 2 g in [...] to the hypoglycemia management protocol on Ellucid: U-ZM-Plhxawqmngra Management Protocol insulin regular (HumuLIN R;NovoLIN R) [...] Ulcer Prophylaxis 1753 (Given - Provider: Araseli Ron RN) propafenone (RYTHMOL) tablet 150 mg 150 mg, Oral, EVERY 8 HOURS, First dose (after last modification) on Tue03/15/22 at 1800, Until Discontinued, Administer every 8 hours according with patient home schedule if possible 1753 (Given - Provider: Araseli Ron RN) 0309 (Given - Provider: Birgit Thakur RN)1448 (Given - Provider: Kirsten Crawford, RN [...] RN)1450 ($$New Bag$$ - Provider: Pankaj Eric APRN-CEMENTING BULK MATERIAL OPERATOR)1606 (Paused - Provider: Chino Puga CRNA - [...] Regina Rios, RN)1146 (Stopped - Provider: Regina Rios RN) PRN Medication Order 03/14/2022 03/15/2022 03/16/2022 bisacodyl (DULCOLAX) suppository 10 mg 10 mg, Rectal, DAILY NEEDED, Starting on Tue03/15/22 at 1750, Until Tue03/16/22 at 1703, constipation, Post-op/Post-Proc ceFAZolin (ANCEF) 2 g in dextrose 100 mL premix IVPB (COMPLETED) 2 g, Intravenous, Administer over 30 Minutes, CANCER CENTER DIRECTOR TO PROCEDURE, 1 dose, Starting on Tue03/15/22 at 0849, Until Discontinued, Other, Pre-operative antibiotic, For 15 Minutes, Pre-op/Pre-Proc 1440 (Given - Provider: Lambert Eric, PRECINCT POLICE CAPTAIN-[facility]) dextrose 10% IV solution 250 mL(Linked [...] less than 60 mg/ml. If unresponsive call LITHOSTRIPPER HYDROmorphone (DILAUDID) injection 0.5 mg 0.5 mg, [...] Dominik Bedoya MD - Comment: given to [facility]) sodium phosphate w/sodium biphosphate (FLEETS) enema 1 enema 1 enema, Rectal, DAILY NEEDED, Starting on Tue03/15/22 at 1750, Until Tue03/16/22 at 1703, Refractory Constipation, use per package instructions, Post-op/Post-Proc vancomycin (VANCOCIN) injection NEEDED, Starting on Tue03/15/22 at 1443, Until Tue03/16/22 at 1703, Intra-op/Intra-Proc 1443 (Given - Provider: Dominik Bedoya MD - Comment: given to [facility]) zolpidem (AMBIEN) tablet 5 mg 5 [...] to the hypoglycemia management protocol on [employer]: [facility]Skdkbmp[facility] Management Protocol
And dextrose 10% IV solution [...] less than 60 mg/ml. If unresponsive call LITHOSTRIPPER
And NOTIFY PHYSICIAN, Blood Glucose LESS THAN 70 mg/dl or greater than 400 mg/dl (CANCELED) Routine, CONTINUOUS, Starting on Tue03/15/22 at 1255, Until Specified
Who to Notify: [employer]/Physician
For all Blood Glucose LESS THAN 70 mg/dl, or greater than 400 mg/dl notify [employer]/Physician Goals (unrecognized section and content) Goals may [...] BE BASED ON THE PRIMARY CLINICAL RECORDS. [employer] [facility]. provides no warranty or guarantee of the accuracy or completeness of information in this document.
[2024-08-14 09:06] LABS: Basophils Percent Auto 0.7 % (0.2-2.0); Eosinophils Absolute Auto 0.1 10^3/uL (0.0-0.7); Eosinophils Percent Auto 2.2 % (0.9-7.0); Hematocrit 42.8 % (42.0-54.0); Lymphocytes Absolute Auto 1.3 10^3/uL (1.2-3.8); Lymphocytes Percent Auto 28.4 % (20.5-60.0); Mean Corpuscular HGB Conc 32.7 g/dL (29.9-35.2); Mean Corpuscular Volume 91.8 fL (80.0-94.0); Mean Platelet Volume 10.8 fL (9.5-13.5); Monocytes Absolute Auto 0.5 10^3/uL (0.3-0.8); Monocytes Percent Auto 10.4 % (1.7-12.0); Neutrophils Absolute Auto 2.6 10^3/uL (1.4-6.5); Neutrophils Percent Auto 58.3 % (43.0-75.0); Platelet Count 150 10^3/uL (150-450); Red Blood Count 4.66 10^6/uL (4.70-6.10); Red Cell Distribution Width 15.4 % (11.0-15.0); White Blood Count 4.5 10^3/uL (4.0-11.0)
[2024-08-14 10:06] LABS: Microalbumin Urine Random 2.9 mg/dL (<=30.0)
[2024-08-14 10:10] LABS: Alanine Aminotransferase 25 U/L (16-63); Albumin Globulin Ratio 1.2; Albumin Level 3.6 g/dL (3.4-5.0); Alkaline Phosphatase 78 U/L (46-116); Anion Gap 13.8; Aspartate Amino Transferase 16 U/L (15-37); BUN Creatinine Ratio 14.5; Bilirubin Total 0.7 mg/dL (0.2-1.0); Calcium 8.8 mg/dL (8.5-10.1); Carbon Dioxide 28.7 mmol/L (21.0-32.0); Chloride 104 mmol/L (98-107); Estimated GFR (African America 49 (>=60 mL/min/1.73m^2); Estimated GFR (Non-African Ame 40 (>=60 mL/min/1.73m^2); Globulin 3.1 g/dL; Glucose 143 mg/dL (74-106); Potassium 4.5 mmol/L (3.5-5.1); Sodium 142 mmol/L (136-145); Total Protein 6.7 g/dL (6.4-8.2)
[2024-08-14 10:41] LABS: Estimated Average Glucose 160 mg/dL; Glycohemoglobin A1C 7.2 % (4.5-6.2)
[2024-08-14 11:24] LABS: Prostate Specific Antigen Scrn 1.77 ng/mL (<=4.00)
== END 2024-08-14 08:26 | disposition home or self-care (01) ==
LOC: LAB 08:27
PROVIDERS: PCP Internal Medicine; Visit Provider Internal Medicine
DX: E11.65 Type 2 diabetes mellitus with hyperglycemia (principal); D64.9 Anemia, unspecified; N18.9 Chronic kidney disease, unspecified; Z12.5 Encounter for screening for malignant neoplasm of prostate; I12.9 Hypertensive chronic kidney disease with stage 1 through stage 4 chronic kidney disease, or unspecified chronic kidney disease
CPT/HCPCS: 36415; 80053; 82043; 83036; 85025; G0103

== ENCOUNTER 2025-01-09 11:12 | Outpatient (OUT) | payer MEDICARE, OTHER, SELFPAY ==
[2025-01-09 11:34] LABS: Hematocrit 43.2 % (42.0-54.0); Hemoglobin 14.5 g/dL (14.0-18.0); Mean Corpuscular HGB Conc 33.6 g/dL (29.9-35.2); Mean Corpuscular Hemoglobin 31.3 pg (25.9-34.0); Mean Corpuscular Volume 93.3 fL (80.0-94.0); Mean Platelet Volume 11.3 fL (9.5-13.5); Platelet Count 153 10^3/uL (150-450); Red Blood Count 4.63 10^6/uL (4.70-6.10); Red Cell Distribution Width 12.8 % (11.0-15.0); White Blood Count 6.2 10^3/uL (4.0-11.0)
--- OUTSIDE RECORDS SUMMARY | 2025-01-09 11:37 | XMS_ITS | CCD ---
Author Organization [facility] Informat ion Partnership [facility] Care Team Providers Care Process Machine Operator Name Role Phone GENE FAJARDO Admitting Unavailable GENE FAJARDO Attending Unavailable AUGUSTINE METZ Primary Care Unavailable RYAN CARDENAS Referring Unavailable Augustine Metz Primary Care Provider [phone] Augustine Metz DO Primary Care Provider [phone] Augustine Metz DO Primary Care Provider Carmen Kahn Unavailable AUGUSTINE METZ Primary Care Physician Augustine Metz DO Primary Care Provider Damari Rojas Unavailable Unavailable Alyssa, Mago Osman Delmis Referring Unavaila natasha Bui, Dr. Macario Kent Attending Unavai labjames UNKNOWN, PCP Primary Care Unavailable Hao, Dr. [...] BALL, DR PEREZ Primary Care Unavailable FAWWAD, CRATER H Attending Unavailable FAWWAD, CARTER H Attending [...] Unavailable BALL, DR PEREZ Primary Care Unavailable Augustine Metz DO Primary Care Provider AZUL RACHEL Attending Unavailable VIRGINIE, AZUL Referring Unavailable BALL, AUGUSTINE Primary Care Unavailable VIRGINIE, AZUL Attending Unavailable VIRGINIE, AZUL Referring Unavailable BALL, AUGUSTINE Primary Care Unavailable VIRGINIE, AZUL Attending Unavailable VIRGINIE, AZUL Referring Unavailable BALL, AUGUSTINE Primary Care Unavailable SELF, SELF Referring Unavailable ISAÍAS, AUGUSTINE Primary Care Unavailable PASTOR BEDOYA Attending Unavailable PASTOR BEDOYA Referring Unavailable BALL, AUGUSTINE Primary Care Unavailable PASTOR BEDOYA Attending Unavailable VIRGINIE, AZUL Attending Unavailable SELF, SELF Referring Unavailable ISAÍAS, AUGUSTINE Primary Care Unavailable Isaías, Augustine Primary Care Unavailable Nohemi, Colin S Admitting Unavailab Colin Tong Attending Unavailab Aguustine Ruby MD Primary Care Provider DO Augustine Metz Primary Care Provider [phone] DO Augustine Freitas Attending Provider Augustine Metz MD Primary Care Provider Christin Bolton MD Unavailable Augustine Freitas DO Unavailable [phone] RAJESH, LIONEL Referring Unavailable RAJESH, LIONEL Referring Unavailable RAJESH, LIONEL Referring Unavailable BRGIITTE PERRY Referring Unavailab OLIVER Matthews Referring Unavailable OLIVER CRANE Referring Unavailable MOUKARBOLIVER RAWLS Referring Unavailable MOUKARBOLIVER RAWLS Referring Unavailable MOUKAELANA OLIVER Admitting Unavailable OLIVER CRANE Attending Unavailable OLIVER CRANE Referring Unavailable MOUKAOLIVER HUITRON Admitting Unavailable DORI RHODES Attending Unavailable MADISON PAUL Referring Unavailable ELTAHAWY, EHAB Attending Unavailable RAJESH, LIONEL Referring Unavailable ELTAHAWY, EHAB Attending Unavailable MADISON PAUL Attending Unavailable MOUKAOLIVER HUITRON Attending Unavailable ELTAHAWY, EHAB Attending Unavailable MADISON PAUL Referring Unavailable OLIVER CRANE Attending Unavailable RAJESH, LIONEL Referring Unavailable Augustine Metz MD Primary Care Provider Augustine Metz DO Primary Care Provider [phone] Augustine Freitas DO Attending Provider Murcek, Augustine Admitting Unavailable Ball, Augustine Primary Care Unavailable Murcek, Augustine Attending Unavailable Murcek, Augustine Admitting Unavailable Ball, Augustine Primary Care Unavailable Murcek, Augustine Attending Unavailable Murcek, Augustine Admitting Unavailable Ball, Augustine Primary Care Unavailable Murcek, Augustine Attending Unavailable Ball, Augustine Primary Care Unavailable Murcek, Augustine Admitting Unavailable Murcek, Augustine Attending Unavailable Tamra OD, Paulina Unavailable OSMAN SHAH Attending Unavailable BOLTONCHRISTIN Attending Unavailable MURCEK, AUGUSTINE Kelsey Attending Unavailable BOLTONCHRISTIN Referring Unavailable MURCEK, AUGUSTINE Kelsey Attending Unavailable MURCEK, AUGUSTINE Kelsey Attending Unavailable ZAHLER, JOSE R Hogan Attending Unavailable MURCEK, AUGUSTINE Kelsey Attending Unavailable BOLTON, CHRISTIN Ramirez Referring Unavailable ZAHLER, JOSE R Hogan Attending Unavailable FELTER, OSMAN Jose Attending Unavailable GILLMOR, SIMRAN Attending Unavailable ZAHLER, JOSE R Hogan Attending Unavailable ANATKINGSTON LAYNE Attending Unavailable FELTER, OSMAN Jose Attending Unavailable BOLTON, CHRISTIN Ramirez Attending Unavailable MURCEK, AUGUSTINE Kelsey Attending Unavailable MURCEK, AUGUSTINE Kelsey Attending Unavailable MURCEK, AUGUSTINE W Attending Unavailable BOLTONCHRISTIN Referring Unavailable ZARAKEL, JOSE R Hogan Attending Unavailable MURCEK, AUGUSTINE Kelsey Attending Unavailable FELTROB, OSMAN Jose Attending Unavailable Augustine Metz DO Primary Care Provider [phone] Augustine Freitas DO Attending Provider [phone] Allergies Allergy Classification Reported Allergen(s) Allergy Type Date of Onset Reaction(s) Facility Iodine (and Iodine containting drugs) (1 source) Iodine Drug Allergy 04-04-20 24 Unknown Reaction [facility] Penicillins (antibiotic) (1 source) Penicillins Drug Allergy 04-04-20 [facility] Shellfish (2 sources) Shellfish Food Allergy 04-04-20 24 Unknown Reaction [facility] Sulfonamides (antibiotic) (1 source) Sulfonamides (Antibiotic) Drug Allergy 04-04-20 24 [facility] (20 sources) Iodine; Translations: [iodine] Drug Allergy 08-31-20 09 Unknown, Unknown Reaction, Swelling of Lip/Tongue/Thr oat [facility] (14 sources) Penicillins; Translations: [PENICILLINS] Drug allergy (disorder) 08-01-19 63 Unknown Reaction, Hives [facility] (14 sources) Sulfonamides (Antibiotic); Translations: [SULFA (SULFONAMIDE ANTIBIOTICS)] Drug allergy (disorder) 08-31-19 93 Swelling [facility] (2 sources) Shellfish Containing Products; Translations: [Shellfish Containing Products] Food allergy (disorder) 08-31-20 09 [facility] (20 sources) Iodine; Translations: [iodine] Drug Allergy 08-31-20 09 Swelling, Unknown (qualifier value), Anaphylaxis [facility] (20 sources) Penicillin G Drug Allergy 10-20-19 13 Hives [facility] (20 sources) Shellfish Propensity to adverse reactions to drug 08-31-20 09 Swelling, Other [facility] (12 sources) Sulfonamides (Antibiotic) Propensity to adverse reactions to drug 10-20-19 13 [facility] ([facility]) Penicillins (Antibiotic) Drug allergy Unknown [facility] Other (20 sources) Shrimp product Propensity to adverse reactions 01-31-20 24 Unknown, Unknown Reaction, Swelling of Lip/Tongue/Thr oat [facility] (11 sources) Sulfonamides (Antibiotic) Drug allergy Unknown [facility] Other (5 sources) Penicillin; Translations: [penicillin] Drug Allergy Unknown (qualifier value) [facility] (1 source) Sulfonamides (Antibiotic); Translations: [sulfa drugs] Drug allergy Unknown (qualifier value) [facility] (1 source) No Alert Propensity to adverse reactions to drug 09-14-20 22 [facility] (1 source) Penicillin Drug Allergy 10-01-19 23 [facility] (1 source) Propensity to adverse reactions to drug 10-01-19 23 [facility] (1 source) Iodine Drug Allergy 08-30-20 13 [facility] (1 source) Shellfish Drug allergy (disorder) 08-30-20 13 [facility] (4 sources) sulfADIAZINE Drug Allergy Unknown [facility] Other (20 sources) Substance with sulfonamide structure and antibacterial mechanism of action (substance) Drug allergy 08-31-19 93 Rash, Swelling [facility] Other (1 source) sulfa drug; Translations: [sulfa drug] Propensity to adverse reactions to drug (disorder) [facility] (20 sources) Penicillin V Drug Allergy 01-23-20 23 [facility] (20 sources) Penicillins Drug Allergy 08-01-19 63 Hives [facility] (20 sources) Other Allergy to substance 06-30-20 23 Other [facility] (20 sources) Shellfish-Derived Products Drug Allergy 10-20-19 13 Swelling [facility] (12 sources) Shellfish; Translations: [shellfish derived] Allergy to substance 01-31-20 24 Unknown Reaction, Swelling of Lip/Tongue/Thr oat [facility] (1 source) Iodine Drug Allergy 10-22-19 25 [facility] (1 source) Penicillins Drug allergy (disorder) 10-22-19 25 [facility] (1 source) Shrimp product Drug allergy (disorder) 10-22-19 25 [facility] (1 source) Sulfonamides (Antibiotic) Drug allergy (disorder) 10-22-19 25 [facility] Medications Current Medications [...] Active Start: 03-15-2022 take 2 tablets by ga ut every four hours as needed acetaminophen 325 MG tablet Take 2 tablets by mouth every 4 hours as needed for Mild Pain. 50 tablet 1 03/15/2022 Active Start: 03-15-2022 End: 03-16-2022 take 1 tablet by mouth every six hours acetaminophen (TYLENOL) tablet 1,000 mg Start: 11-10-2021 take 2 tablets by mo uth every eight hours Acetaminophen 500 mg Tablet Active 1000 MG PO Every 8 hours November 10, 2021 1:00am Start: 11-10-2021 take 1 tablet by wendy th four times daily as needed for pain Acetaminophen 500 mg Tablet Active 500 MG PO Four times daily as needed for Pain November 10, 2021 12:00am Start: 04-27-2021 End: 03-16-2022 take 1 mg [...] / HYDROcodone bitartrate 7.5 mg oral tablet (20 sources) Opioid Agonist HYDROcodone-acet aminophen ([place]) 7.5-325 MG tablet Active amiodarone hydrochloride 200 mg oral tablet (20 sources) Antiarrhythmic Start : 01-30 End: 08-07 take 1 tablet by mouth once daily in the morning Amiodarone 200 mg tablet Active 200 MG PO Every morning January 31, 2024 12:00am Aspirin (20 sources) Platelet Aggregation Inhibitor, Nonsteroidal Anti-inflammatory Drug Start : 10-01 135824 Medication aspirin aspirin 300 mg 10/01/2022 Active (Outside) Start: 11-10-2021 take 1 tablet by wendy th once daily in the morning Aspirin (Aspirin Childrens) 81 mg tablet,chewable Active 81 MG PO Every morning November 10, 2021 1:00am On Hold: Resume on 10/24/24. Start: 09-24-2019 aspirin Refill s(s) 0 Start Date: 09/24/19 Status: Ordered take 1 tablet by wendy th in the morning aspirin 81 MG EC tablet Take 1 tablet by mouth in the morning. Active atorvastatin 10 mg oral tablet (20 sources) HMG-CoA Reductase Inhibitor Start: 10-17-2024 take 1 tablet by mouth once daily at bedtime Atorvastatin 10 mg tablet Active 10 MG PO Daily at bedtime October 17, 2024 1:00am Start: 07-19-2024 End: 10-17-2024 take 1 tablet by mouth once daily in the evening Atorvastatin 10 mg tablet Discontinued 0 .ROUTE .COMPLEX July 19, 2024 12:34pm October 17, 2024 3:59pm TAKE ONE TABLET BY MOUTH EVERY EVENING Start: 06-15-2012 End: 07-19-2024 take 1 tablet by mouth once daily at bedtime Atorvastatin 10 mg tablet Discontinued 10 MG PO Daily at bedtime November 10, 2021 1:00am July 19, 2024 12:34pm benazepril hydrochloride 20 mg oral tablet (20 sources) Angiotensin Converting Enzyme Inhibitor Start: 09-20-2024 take 1 tablet by mouth once daily in the morning Benazepril 20 mg tablet Active 20 MG PO Every morning October 17, 2024 1:00am Start: 06-24-2024 End: 10-17-2024 take 1 tablet by mouth once daily Benazepril 20 mg tablet Discontinued 0 .ROUTE .COMPLEX June 24, 2024 5:56pm October 17, 2024 3:59pm TAKE 1 TABLET BY MOUTH DAILY Start: 01-31-2024 End: 06-24-2024 take 1 tablet by mouth once daily Benazepril 20 mg tablet Discontinued 20 MG PO Daily January 31, 2024 12:00am June 24, 2024 5:56pm Start: 02-03-2018 take 1 tablet by wendy th in the morning benazepril (Lotensin) 20 MG tablet Take 20 mg by mouth in the morning. 0 07/09/2022 Active carvedilol 12.5 mg oral tablet (20 sources) alpha-Adrenergic Dominic, beta-Adrenergic Dominic Start: 08-21-2024 take 1 tablet by mouth twice daily Carvedilol 12.5 mg tablet Active 12.5 MG PO Twice daily 180 90 August 21, 2024 10:56am Start: 04-04-2024 End: 08-21-2024 take 1 tablet by mouth twice daily Carvedilol 6.25 mg tablet Discontinued 6.25 MG PO Twice daily 180 90 April 04, 2024 11:39am August 21, 2024 10:57am Start: 01-31-2024 End: 04-04-2024 take 1 tablet by mouth twice daily Carvedilol 12.5 mg tablet Discontinued 12.5 MG PO Twice daily January 31, 2024 12:00am April 04, 2024 11:40am Start: 03-15-2022 End: 03-16-2022 take 6.25 mg by mouth every twelve hours 6.25 mg, Oral, EVERY 12 HOURS, First dose on Tue03/15/22 at 2100, Until Discontinued Start: 09-24-2019 End: 01-31-2024 take 1 tablet by mouth twice daily Carvedilol 6.25 mg tablet Discontinued 6.25 MG PO Twice daily November [...] tablet by mouth every twelve hours clindamycin 300 mg oral capsule (20 sources) Lincosamide Antibacterial Start: 10-16-2024 take 1 capsule by mouth twice daily Clindamycin Hcl 300 mg capsule Active 300 MG PO Twice daily October 17, 2024 1:00am Start: 04-08-2022 End: 04-08-2023 clindamycin 150 MG capsule T tulio 4 capsules 1 hour before the procedure 8 capsule 1 04/08/2022 04/08/2023 Active clonazePAM 1 mg oral tablet (20 sources) Benzodiazepine Start: 03-15-2022 End: 06-21-2022 take 1 tablet by mouth once daily [...] mental status after anesthesia Start: 11-10-2021 take 2 tablets by mo [facility] once daily at bedtime Clonazepam 1 mg tablet Active 2 MG PO Daily at bedtime November 10, 2021 1:00am Start: 11-10-2021 End: 10-03-2024 clonazePAM (KlonoPIN) 1 MG t ablet Indications: PLMD (periodic limb movement disorder) 1-2 tablet at bedtime 180 tablet 10/03/2024 Active Start: 09-24-2019 take 1 tablet by [facility] three times daily clonazepam 1 mg Tab mg tab(s), Oral, TID, Refills(s) 0 Start Date: 09/24/19 Status: Ordered Start: 01-16-2018 End: 2022 clonazePAM 0.5 MG Tab tablet 1 mg. 0 01/16/2018 2022 Discontinued (Medication Reconciliation (suppress cancel msg)) docusate sodium 100 mg oral capsule (8 sources) Start: 03-15-2022 End: 03-16-2022 take 1 capsule by mouth twice daily docusate 100 MG capsule Take 1 capsule by mouth 2 times daily. 60 capsule 0 03/15/2022 Active gabapentin 300 mg oral capsule (20 sources) Anti-epileptic Agent Start: 01-22-2023 gabapentin (Neurontin) 300 MG capsule 01/22/2023 Active glimepiride 1 mg oral tablet (1 source) Sulfonylurea Start: 09-24-2019 take 1 tablet by mouth once daily glimepiride 1 mg Tab mg tab(s), Oral, Daily, Refills(s) 0 Start Date: 09/24/19 Status: Ordered Glucosamine-Chondr oit-Vit C-Mn (Glucosamine-Chond roitin) capsule (2 sources) GlucosamineNate chase oit-Vit C-Mn (Glucosamine-Chond roitin) capsule Take by mouth. 0 Active levETIRAcetam 500 mg oral tablet (20 sources) Start: 01-22-2023 levETIRAcetam (Keppra) 500 MG tablet 01/22/2023 Active meloxicam 15 mg oral tablet (20 sources) Nonsteroidal Anti-inflammatory Drug meloxicam (Mobic) 15 MG tablet Active metFORMIN hydrochloride 850 mg / pioglitazone 15 mg oral tablet (20 sources) Biguanide, Peroxisome Proliferator Receptor alpha Agonist, Peroxisome Proliferator Receptor gamma Agonist, Thiazolidinedione take 15-850 mg by mouth in the morning pioglitazone-metFO RMIN (ACTOPlus Met) 15-850 MG tablet Take 1 tablet by mouth in the morning. Active Multi Vitamin+ (1 source) Start: 09-24-2019 Multi Vitamin+ Refill(s) 0 Start Date: 09/24/19 Status: Ordered Multiple Vitamin (Multi Vitamin) tablet (20 sources) Multiple Vitamin (Multi Vitamin) tablet Take by mouth Active Multiple Vitamins-Minerals (PRESERVISION AREDS PO) (10 sources) Multiple Vitamins-Minerals (PRESERVISION AREDS PO) Take by mouth. 0 Active Multivitamin-Electrical Contacts Adjuster als-Lutein (A Thru Z High Potency) tablet (12 sources) Start: 11-10-2021 take 1 tablet by mouth twice daily Multivitamin-Electrical Contacts Adjuster als-Lutein (A Thru Z High Potency) tablet Active 1 TAB PO Twice daily November 10, 2021 12:00am Start: 11-10-2021 take 1 tablet by wendy th twice daily Kvrelkmdwdpi-Qcnkmles-Fjyklz (A Thru Z H igh Potency) tablet Active 1 TAB PO Twice daily November 10, 2021 1:00am Start: 11-10-2021 take 1 tablet by wendy th once daily Ysswgoazpeob-Bhpiunxt-Njzhti (A Thru Z H igh Potency) tablet Active 1 TAB PO Daily November 10, 2021 1:00am mupirocin 0.02 mg/mg topical ointment (20 sources) RNA Synthetase Inhibitor Antibacterial Start: 06-04-2024 mupirocin (Bactroban ) 2 % ointment 06/04/2024 Active Start: 06-04-2024 End: 10-17-2024 Mupirocin 2 % ointment Disco ntinued 1 APPLIC TOPICAL Twice daily June 04, 2024 12:00am October 17, 2024 3:59pm Vylxsxsdkzs-Stjuzkpn-Cselvzp ac 1-0.5-0.075 % solution (7 sources) Start: 12-28-2024 Hbikrvjgrxh-Wxdhizve-Gndgqwx ac 1-0.5-0.075 % solution Indications: Age-related nuclear cataract of both eyes Administer 1 drop into affected eye(s) in the morning and 1 drop at noon and 1 drop in the evening and 1 drop before bedtime. 10 mL 1 12/28/2024 Active primidone 250 mg oral tablet (1 source) Anti-e pilept ic Agent Start: 08-21-2022 [id number] Medication omeprazole 20 mg capsule,delayed release omeprazole 20 mg capsule,delayed release 20 mg 08/21/2022 Active (Outside) therapeutic multivitamin-minerals tablet (7 sources) Start: 03-15-2022 take 1 tablet by mouth at bedtim e therapeutic multivitamin-minerals tablet Take 1 tablet by mouth at bedtime. 30 tablet 0 03/15/2022 Active traZODone hydrochloride 50 m g oral tablet (20 sources) Seroto eliza Roach ke Colettei tor Start: 10-17-2024 take 1 tablet by mouth once daily at bedtim e Trazodone 50 mg tablet Active 50 MG PO Daily at bedtime October 17, 2024 1:00am Start: 01-23-2024 End: 10-17-2024 take 1 tablet by mouth once daily at bedtime Trazodone 50 mg tablet Discontinued 0 .ROUTE .COMPLEX July 25, 2024 6:59am October 17, 2024 3:59pm TAKE ONE TABLET BY MOUTH EVERY NIGHT AT BEDTIME Start: 01-23-2024 take 1 tablet by wendy th once daily at bedtime Trazodone Active 0 .ROUTE .COMPLEX January 23, 2024 10:08pm TAKE ONE TABLET BY MOUTH EVERY NIGHT AT BEDTIME Start: 11-10-2021 End: 01-23-2024 take 1 tablet by mouth once daily Trazodone 50 mg tablet Discontinued 50 MG PO Daily November 10, 2021 1:00am January 23, 2024 10:08pm Start: 09-24-2019 take 1 tablet by wendy th at bedtime traZODone (Desyrel) 50 MG tablet Take 1 tablet by mouth at bedtime. 0 04/30/2022 Active Tylenol 8 Hour 650 MG (7 sources) take 2 tablets by mouth every ei ght hours as needed take 2 tablets by mo ut every eight hours as needed Tylenol 8 Hour 650 MG 2 tablets as neede d Orally every 8 hrs Active Completed/Discontinued Medications Medication Drug Class(es) Dates Sig (Normalized) Sig (Original) amLODIPine 5 mg oral tablet (20 sources) Dihydropyridine Calcium Channel Dominic Start: 02-28-2024 End: 10-17-2024 take 1 tablet by mouth once daily Amlodipine 5 mg tablet Discontinued 5 MG PO Daily 90 90 July 09, 2024 9:33am October 17, 2024 3:59pm Start: 03-16-2022 End: 03-16-2022 amLODIPine (NORVASC) tablet 5 mg Start: 03-15-2022 End: 03-16-2022 take 2.5 mg by mouth every twelve hours 2.5 mg, Oral, EVERY 12 HOURS, First dose on Tue03/15/22 at 2100, Until Discontinued Hold for blood pressure less than 1 20 mmHg Start: 09-24-2019 End: 01-31-2024 take 1 tablet by mouth once daily Amlodipine 10 mg tablet Discontinued 10 MG PO Daily November 10, 2021 1:00am January 31, 2024 3:31pm benzonatate 200 mg oral capsule (20 sources) Non-narcotic Antitussive Start: 05-16-2024 End: 06-04-2024 take 1 capsule by mouth three times daily Benzonatate 200 mg capsule Discontinued 200 MG PO Three times daily 30 May 16, 2024 12:00am June 04, 2024 11:19am Start: 11-28-2023 take 1 capsule by mo [facility] three times daily as needed benzonatate (Tessalon) [...] g in dextrose 100 mL premix IVPB clopidogrel 75 mg oral tablet (20 sources) [id number] Platelet Inhibitor Start: 01-31-2024 End: 08-21-2024 take 1 tablet by mouth once daily Clopidogrel (Plavix) 75 mg tablet Discontinued 75 MG PO Daily January 31, 2024 12:00am August 21, 2024 10:53am On Hold: Resume on 02/26/24. dexamethasone phosphate 10 mg/ml injectable solution (1 source) Corticosteroid Start: 03-16-2022 End: 03-16-2022 dexAMETHasone (DECADRON) injection 10 mg 24 hr dilTIAZem hydrochloride 120 mg extended release oral capsule (3 sources) Calcium Channel Dominic Start: 12-27-2017 End: 2022 diltiazem 120 MG Cap SR 24HR capsule XL docusate sodium 50 mg / sennosides, long-term 8.6 mg oral tablet (1 source) Start: 03-15-2022 End: 03-16-2022 senna-docusate (SENOKOT-S) 8.6-50 MG per tablet 2 tablet doxycycline hyclate 100 mg oral capsule (12 sources) Tetracycline-cla ss Drug Start: 01-31-2024 End: 02-16-2024 take 1 capsule by mouth twice daily Doxycycline Hyclate 100 mg capsule Discontinued 100 MG PO Twice daily 08 04January 31, 2024 12:00am February 16, 2024 4:13pm ferrous sulfate 325 mg oral tablet (5 sources) Start: 03-16-2022 End: 07-08-2022 take 325 mg by mouth once daily [...] day for 7 days Oct, Not-Taking/PRN Molnupiravir (13 sources) Start: 05-16-2024 End: 06-04-2024 take 1 capsule by mouth every twelve hours Molnupiravir 200 mg capsule Discontinued 800 MG PO Every 12 hours 40 May 16, 2024 2:04pm June 04, 2024 11:19am Start: 05-16-2024 End: 06-04-2024 take 1 capsule by mouth every twelve hours Molnupiravir 200 mg capsule Discontinued 800 MG PO Every 12 hours 40 May 16, 2024 1:04pm June 04, 2024 10:19am Start: 05-16-2024 End: 06-04-2024 take 800 mg by mouth every twelve hours Molnupiravir Discontinued 800 MG PO Every 12 hours 40 May 16, 2024 2:04pm June 04, 2024 11:19am Start: 05-16-2024 End: 05-16-2024 take 1 capsule by mouth every twelve hours Molnupiravir 200 mg capsule Discontinued 800 MG PO Every 12 hours 40 May 16, 2024 12:00am May 16, 2024 2:05pm Start: 05-16-2024 End: 05-16-2024 take 1 capsule by mouth every twelve hours Molnupiravir 200 mg capsule Discontinued 800 MG PO Every 12 hours 40 May 15, 2024 11:00pm May 16, 2024 1:05pm Start: 05-16-2024 End: 05-16-2024 take 800 mg [...] Orally Not-Taking Multivitamins as directed Orally Active omeprazole 20 mg delayed release oral capsule (20 sources) Proton Pump Inhibitor Start: 12-27-2017 End: 07-09-2024 take 1 capsule by mouth once daily Omeprazole 20 mg capsule,delayed release(DR/EC) Discontinued 20 MG PO Daily November 10, 2021 1:00am July 09, 2024 9:38pm 2 ml ondansetron 2 mg/ml injection (1 [...] pantoprazole 40 mg delayed release oral tablet (20 sources) Proton Pump Inhibitor Start: 07-09-2024 End: 10-17-2024 Pantoprazole 40 mg tablet,delayed release (DR/EC) Discontinued 40 MG PO Daily 90 90 July 10, 2024 5:36pm October 17, 2024 3:59pm Take on an empty stomach, 30 minutes prior to bkfst Start: 03-15-2022 End: 03-16-2022 take 40 mg by mouth once daily 40 mg, Oral, DAILY EVANGELISTA Y EVENING, First dose on Tue03/15/22 at 1800, Until Discontinued, Indications: Inpt Stress Ulcer Prophylaxis propafenone hydrochloride 150 mg oral tablet (20 sources) Antiarrhythmic Start: 09-24-2019 End: 01-31-2024 take 1 tablet by mouth every eight hours Propafenone 150 mg Tablet Discontinued 150 MG PO Q8H November 10, [...] K Antagonist Start: 09-24-2019 End: 01-31-2024 Warfarin 7.5 mg tablet Discontinued 7.5 MG PO As Directed November 10, 2021 1:00am January 31, 2024 3:31pm 7.5mg on Sat. 5mg Q-X-M-W-Th-F Start: 01-02-2018 warfarin 5 MG tablet 1 [...] duct] Onset: 3 Resolved: 4 09-07-2023 Chronic Comment on above: Problem List clean-u p per request of Phys. EHR Cmte Biliary tract disease (20 sources) Gallstone; Translations: [Calculus of gallbladder without cholecystitis without obstruction] Onset: 2 Resolved: 2 Episodic Comment on above: Problem List clean-u p per request of Phys. EHR Cmte Cardiac dysrhythmias (20 sources) Paroxysmal atrial fibrillation; Translations: [Paroxysmal atrial fibrillation] Onset: 3 Resolved: 4 Chronic Comment on above: Echo: LVEF 60%, norm al RV size/function, IVAN - 01/2024, 03/2024 Cataract (20 sources) Bilateral age-related nuclear cataracts; Translations: [Age-related [...] Chronic Coronary atherosclerosis and other heart disease (20 sources) Coronary arteriosclerosis; Translations: [Atherosclerotic heart disease of [place] coronary artery without angina pectoris] Onset: 4 06-23-2024 Chronic Deficiency and other anemia (20 sources) Anemia; Translations: [Anemia, unspecified] Onset: 4 Resolved: 5 04-04-2024 Episodic Deficiency and other anemia (10 sources) Anemia, unspecified; Translations: [Anemia, unspecified] Onset: 2 04-04-2024 Episodic Diabetes mellitus with complications (20 sources) Hyperglycemia due to type 2 diabetes mellitus; Translations: [Type 2 diabetes mellitus with hyperglycemia] Onset: 3 Chronic Diabetes mellitus without complication (20 sources) Type 2 diabetes mellitus without complication; [...] Resolved: 4 09-24-2019 Chronic Hyperplasia of prostate (20 sources) Benign prostatic hypertrophy with outflow obstruction; [...] INIT] Onset: 3 Episodic Melanomas of skin (4 sources) History of malignant melanoma of the skin; Translations: [Personal history of malignant melanoma of skin] 06-19-2024 Episodic Miscellaneous mental health disorders (20 sources) Primary insomnia; Translations: [Primary insomnia] Onset: 4 06-23-2024 Chronic Neoplasms of unspecified nature or uncertain behavior (2 sources) Neoplastic disease; Translations: [Neoplasm of unspecified behavior of bone, soft tissue, and skin] 10-04-2024 Episodic Nonspecific chest pain (20 sources) Chest pain; Translations: [Chest pain, unspecified] Onset: 4 Resolved: 5 04-03-2024 Episodic Other acquired deformities (4 sources) Surgical wound finding; Translations: [Acquired deformity of nose] 10-17-2024 Episodic Other aftercare (9 sources) Long-term current use of anticoagulant; Translations: [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] Episodic Other aftercare (2 sources) half-way (current) use of anticoagulants; Translations: [FDC CURRNT USE ANTICOAGULANTS] Onset: 3 Episodic Other aftercare (5 sources) Encounter for therapeutic drug level monitoring; Translations: [ENC THERAPEUTC DRUG LEVL MONITORING] Onset: 3 Episodic Other aftercare (1 source) termite control servicer (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) 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; Translations: [FDC CURRENT USE OF ASPIRIN] Onset: 3 Episodic Other aftercare (1 source) Other fpc (current) drug therapy; Translations: [OTH ESTIMATOR PROJECT MANAGER CURRENT DRUG THERAPY] Onset: 3 Episodic Other and unspecified benign neoplasm (4 sources) Melanocytic nevus of trunk; Translations: [Melanocytic nevi of trunk] 06-19-2024 Episodic Other and unspecified benign neoplasm (2 sources) Melanocytic nevus of lower limb; Translations: [Melanocytic nevi of unspecified lower limb, including hip] 01-03-2025 Episodic Other circulatory disease (4 sources) Spider nevus; Translations: [Nevus, non-neoplastic] 06-19-2024 Episodic Other circulatory disease (4 sources) Telangiectasia of skin of face; Translations: [Nevus, non-neoplastic] 06-19-2024 Episodic Other connective tissue disease (3 sources) History [...] elsewhere classified Chronic Other lower respiratory disease (4 sources) Snoring; Translations: [Snoring] 06-27-2024 Episodic Other nervous system disorders (1 source) Other acute postprocedural pain; Translations: [Pain in joint, lower leg] Episodic Other non-epithelial cancer of skin (20 sources) Personal history of other malignant neoplasm of skin; Translations: [Basal cell carcinoma of face] Onset: 3 Resolved: 4 02-15-2024 Episodic Other non-traumatic joint disorders (1 source) Pain in right knee; Translations: [Pain in joint, lower leg] Episodic Other nutritional; endocrine; and metabolic disorders (11 sources) Obese class II; Translations: [Body mass index (BMI) 36.0-36.9, adult] Chronic Other nutritional; endocrine; and metabolic disorders (20 sources) Obesity; Translations: [Obesity, unspecified] Onset: 4 01-31-2024 Chronic Other nutritional; endocrine; and metabolic disorders (15 sources) Obesity, unspecified; Translations: [Obesity, unspecified] 01-31-2024 Chronic Other screening for suspected conditions (not mental disorders or infectious disease) (11 sources) Ultrasound scan abnormal; Translations: [Abnormal findings on diagnostic imaging of other specified body structures] Chronic Other screening for suspected conditions (not mental disorders or infectious disease) (5 sources) Coag./bleeding tests abnormal; Translations: [Abnormal coagulation profile] Episodic Comment on above: PSA: 2.15 - 11/2021, 1.89 - 06/2023, 1.77 - 07/2024 Other skin disorders (4 sources) Seborrheic keratosis; Translations: [Other seborrheic keratosis] 06-19-2024 Episodic Other skin disorders (4 sources) Lentiginosis; Translations: [Other melanin hyperpigmentation] 06-19-2024 Episodic Other skin disorders (4 sources) Actinic keratosis; Translations: [Actinic keratosis] 06-19-2024 Episodic Other skin disorders (2 sources) Inflamed seborrheic keratosis; Translations: [Inflamed seborrheic keratosis] 06-19-2024 Episodic Other skin disorders (2 sources) Sebaceous hyperplasia; Translations: [Other specified follicular disorders] 01-03-2025 Episodic Pancreatic disorders (not diabetes) (20 sources) Disorder of pancreas; Translations: [Disease of pancreas, unspecified] Onset: 2 Resolved: 2 Episodic Nicolasa-; endo-; and myocarditis; cardiomyopathy (except that caused by tuberculosis or sexually transmitted disease) (20 sources) Hemopericardium; Translations: [Hemopericardium, not elsewhere classified] Onset: 4 Resolved: 4 01-30-2024 Episodic Residual codes; unclassified (20 sources) Periodic limb movement disorder; Translations: [Periodic limb movement disorder] Onset: 4 06-23-2024 Chronic Residual codes; unclassified (20 sources) Obstructive sleep apnea syndrome; Translations: [Obstructive sleep apnea (adult) (pediatric)] Onset: 3 Resolved: 4 01-30-2024 Chronic Residual codes; unclassified (20 sources) Obstructive sleep apnea (adult) (pediatric); Translations: [Obstructive sleep apnea (adult)(pediatric)] Chronic Residual codes; unclassified (1 source) Sleep apnea, unspecified; Translations: [SLEEP APNEA UNSPECIFIED] Onset: 3 Chronic Residual codes; unclassified (20 sources) Hypersomnia; Translations: [Hypersomnia, unspecified] Onset: 4 06-23-2024 Chronic Residual codes; unclassified (20 sources) Daytime somnolence; Translations: [Other hypersomnia] Onset: 4 06-23-2024 Chronic Residual codes; unclassified (9 sources) Periodic leg movements of sleep ; Translations: [Periodic limb movement disorder] Onset: 4 [...] INT] Onset: 3 Episodic Superficial injury; contusion (20 sources) Abrasion of left cornea; Translations: [Injury of conjunctiva and corneal abrasion without foreign body, left eye, initial encounter] Onset: 3 Resolved: 5 08-29-2023 Episodic Unclassified (1 source) History of [...] Date Documented Date Episodic/Chronic Acute cerebrovascular disease (20 sources) Hemorrhage into subarachnoid space of neuraxis; Translations: [Nontraumatic subarachnoid hemorrhage, unspecified] Onset: 3 Resolved: 4 Chronic Calculus of urinary tract (20 sources) Kidney stone; Translations: [Calculus of kidney] Onset: 2 Episodic Chronic kidney disease (3 sources) Chronic kidney disease Diabetes mellitus without complication (20 sources) Glycosuria; Translations: [Glycosuria] Onset: 2 Resolved: 4 Episodic Diverticulosis and diverticulitis (20 sources) Diverticular disease; Translations: [Diverticulosis of intestine, part unspecified, without perforation or abscess without bleeding] Onset: 3 Resolved: 4 02-15-2024 Chronic E Codes: Fall (20 sources) Fall (on) (from) unspecified stairs and steps, initial encounter; Translations: [Fall] Onset: 3 Resolved: 4 02-15-2024 Episodic Esophageal disorders (8 sources) Esophageal disorders; Translations: [Gastro-esophageal reflux disease with esophagitis, without bleeding] Fluid and electrolyte disorders (8 sources) Hyponatremia; Translations: [Hypo-osmolality and hyponatremia] Onset: 2 Episodic Genitourinary symptoms and ill-defined conditions (20 sources) Proteinuria; Translations: [Proteinuria, unspecified] Onset: 2 Resolved: 4 Episodic Glaucoma (20 sources) Glaucoma; Translations: [Unspecified glaucoma] Onset: 3 Resolved: 4 09-24-2019 Chronic Heart valve disorders (20 sources) Non-rheumatic mitral regurgitation ; Translations: [Nonrheumatic mitral (valve) insufficiency] Onset: 3 Resolved: 4 Chronic Inflammation; infection of eye (except that caused by tuberculosis or sexually transmitteddisease) (20 sources) Keratitis; Translations: [Other keratitis] Onset: 3 Resolved: 4 08-29-2023 Episodic Melanomas of skin (20 sources) Melanoma in situ of other parts of face; Translations: [Melanoma in situ of face] Onset: 3 Resolved: 4 02-15-2024 Chronic Osteoarthritis (20 sources) Osteoarthritis of right knee joint; Translations: [Unilateral primary osteoarthritis, right knee] Onset: 3 Resolved: 4 Chronic Other aftercare (1 source) Encounter for other plastic and reconstructive surgery following medical procedure or healed injury; Translations: [Encounter for other plastic and reconstructive surgery following medical procedure or healed injury] Onset: 4 Episodic Other circulatory disease (20 sources) Presence of other cardiac implants and grafts; Translations: [Other specified cardiac device in situ] Onset: 4 Resolved: 4 02-15-2024 Chronic Other connective tissue disease (20 sources) History of total knee arthroplasty; Translations: [Presence of right artificial knee joint] Onset: 2 Resolved: 4 Chronic Other connective tissue disease (2 sources) Repeated falls; Translations: [Repeated falls] Onset: 3 Episodic Other eye disorders (20 sources) Dry eyes; Translations: [Dry eye syndrome of bilateral lacrimal glands] Onset: 3 08-29-2023 Episodic Other gastrointestinal disorders (4 sources) Dysphagia, pharyngoesophageal phase; Translations: [DYSPHAGIA PHARYNGOESOPHAGEAL PHASE] Onset: 2 Episodic Other hereditary and degenerative nervous system conditions (20 sources) Restless legs; Translations: [Restless legs syndrome] Onset: 2 Resolved: 4 Chronic Other injuries and conditions due to external causes (4 sources) Food in larynx causing asphyxiation, initial encounter; Translations: [FOOD LARYNX CAUS ASPHYX INITIAL ENC] Onset: 2 Episodic Residual codes; unclassified (20 sources) Family history of malignant neoplasm of skin; Translations: [Family history of malignant neoplasm of other organs or systems] Onset: 3 Resolved: 4 09-24-2019 Episodic Unclassified (9 sources) Elevated transaminase level; Translations: [Elevated transaminase level] Unclassified (1 source) Other pericardial effusion (noninflammatory); Translations: [Other pericardial effusion (noninflammatory)] Onset: 4 Results Test Name Value Interpretation Reference Range Facility No Panel Informationon 01-03 [facility] Ophthalmic OCT panelon 12-28 [facility] Right Eye Images reviewed and comparison made to baseline, Images reviewed. To assess optic nerve function and for use in future follow-up. Reliability: good and adequate. Left Eye Images reviewed and comparison made to baseline, Images reviewed. To assess optic nerve function and for use in future follow-up. Reliability: good and adequate. Notes Good nerve fiber layer (NFL) thickness both eyes (OU). [facility] Rad[facility] Study observation (narrative) [facility] Optical coherence tomography study reporton 12-28-2024 [facility] Rad[facility] Study observation (narrative) [facility] US Eye+Orbit - bilateralon 0 12-28-2024 Diagnosis: Cataract both eyes (OU) Testing Indication: Performed for preop measurements in the determination of an intraocular lens (IOL) for both eyes (OU) Test Reliability: Good quality both eyes (OU) Interpretation: Good measurements for intraocular lens (IOL) calculation purposes. Calculation made for both eyes (OU). [facility] Radiology Study observation (narrative) [facility] GLUCOSE POCT GLUCOMETERSon 0 10-22-2024 COMMEMT1 Glu2: Cleaned Meter [facility] Glucose [Mass/Vol] 157 mg/dL [facility] Comment on above: Random Glucose Refer ence Range is dependent on time and content of last meal. Glucose of more than 200 mg/dL in a nonstressed, ambulatory subject supports the diagnosis of Diabetes Mellitus. [facility] COMMEMT1 Glu2: Cleaned Meter [facility] Glucose [Mass/Vol] 164 mg/dL [facility] Comment on above: Random Glucose Refer ence Range is dependent on time and content of last meal. Glucose of more than 200 mg/dL in a nonstressed, ambulatory subject supports the diagnosis of Diabetes Mellitus. [facility] Glucose Glucometer (dC) [M ass/Vol]Ordered By: Augustine Freitas on 10-22-2024 Glucose [Mass/Vol] Capillary blood gluc ose measurement by glucometer (mass/volume) [facility] Comment on above: Random Glucose Refer ence Range is dependent on time and content of last meal. Glucose of more than 200 mg/dL in a nonstressed, ambulatory subject supports the diagnosis of Diabetes Mellitus. Glucose Poct Glucometerson 0 10-22-2024 Commemt1 Glu2: Cleaned Meter Normal [facility] Comment on above: Result Comment: PERF ORMED BY: [facility] [address] [place] [address] PATHOLOGIST UI DEVELOPER DESIGNER GUERDA ESQUIVEL M.D. Performed By: #### G LULS #### Point of Care testing , Glucose [Mass/Vol] 157 mg/dL Normal [facility] Comment on above: Result Comment: [facility] Glucose Reference Range is dependent on time and content of last meal. Glucose of more than 200 mg/dL in a nonstressed, ambulatory subject supports the diagnosis of Diabetes Mellitus. Performed By: #### G LULS #### Point of Care testing , Commemt1 Glu2: Cleaned Meter Normal [facility] Comment on above: Result Comment: PERF ORMED BY: [place] [address] PATHOLOGIST UI DEVELOPER DESIGNER GUERDA ESQUIVEL M.D. Performed By: #### G LULS #### Point of Care testing , Glucose [Mass/Vol] 164 mg/dL Normal [facility] Comment on above: Result Comment: [facility] Glucose Reference Range is dependent on time and content of last meal. Glucose of more than 200 mg/dL in a nonstressed, ambulatory subject supports the diagnosis of Diabetes Mellitus. Performed By: #### G LULS #### Point of Care testing , No Panel InformationOrdered By: Augustine Freitas on 10-22-2024 Bedside Glucose Comment Glu2: cleaned meter [facility] Basic Metabolic Panelon 09-27 Anion gap [Moles/Vol] 13.1 mmol/L Normal 6.0-15.0 [facility] Comment on above: Performed By: #### C BC, BMP #### [facility] [address] [place] [address] [place] Calcium [Mass/Vol] 9.0 mg/dL Normal 8.6-10.3 [facility] Comment on above: Result Comment: PERF ORMED BY: [place] [address] PATHOLOGIST UI DEVELOPER DESIGNER GUERDA ESQUIVEL M.D. Performed By: #### C BC, BMP #### [place] [id number] [place] Chloride [Moles/Vol] 103 mmol/L Normal 98-107 [facility] Comment on above: Performed By: #### C BC, BMP #### [address] CO2 [Moles/Vol] 30.3 mmol/L Normal 21.0-31.0 [facility] Comment on above: Performed By: #### C BC, BMP #### [address] Creatinine [Mass/Vol] 1.32 mg/dL High 0.70-1.30 [facility] Comment on above: Performed By: #### C BC, BMP #### [address] Estimated GFR 55.209 mL/Min Normal [facility] Comment on above: Performed By: #### C BC, BMP #### [address] Glucose [Mass/Vol] 175 mg/dL High 70-100 [facility] Comment on above: Result Comment: [facility] Glucose Reference Range is dependent on time and content of last meal. Glucose of more than 200 mg/dL in a nonstressed, ambulatory subject supports the diagnosis of Diabetes Mellitus. ADA recommended reference range Performed By: #### C BC, BMP #### [address] Potassium [Moles/Vol] 4.4 mmol/L Normal 3.5-5.1 [facility] Comment on above: Performed By: #### C BC, BMP #### [address] Sodium [Moles/Vol] 142 mmol/L Normal 136-145 [facility] Comment on above: Performed By: #### C BC, BMP #### [address] Urea nitrogen [Mass/Vol] 16 mg/dL Normal 7-25 [facility] Comment on above: Performed By: #### C BC, BMP #### [address] Basic metabolic 1998 panelon 10-17-2024 Anion gap [Moles/Vol] 13.1 mmol/L 6.0 - 15.0 meq/L [facility] Calcium [Mass/Vol] 9 mg/dL 8.6 - 10. 3 mg/dL [facility] Chloride [Moles/Vol] 103 mmol/L 98 - 10 7 mmol/L [facility] CO2 [Moles/Vol] 30.3 mmol/L 21.0 - 31.0 mmol/L [facility] Creatinine (U) [Mass/Vol] 1.32 mg/dL High 0.70 - 1.30 mg/dL [facility] GFR/1.73 sq M.predicted MDRD (S/P/Bld) [Vol rate/Area] 55.209 mL/min/{1.73_m2} mL/Min [facility] Glucose [Mass/Vol] 175 mg/dL High 70 - 100 mg/dL [facility] Comment on above: Random Glucose Refer ence Range is dependent on time and content of last meal. Glucose of more than 200 mg/dL in a nonstressed, ambulatory subject supports the diagnosis of Diabetes Mellitus. ADA recommended reference range Interpretation and review of laboratory results Abnormal [facility] Potassium [Moles/Vol] 4.4 mmol/L 3.5 - 5.1 mmol/L [facility] Sodium [Moles/Vol] 142 mmol/L 136 - 145 mmol/L [facility] Urea nitrogen [Mass/Vol] 16 mg/dL 7 - 25 mg/dL [facility] Basophils Auto (Bld) [#/Vol] Ordered By: Augustine Freitas on 10-17-2024 Basophils (Bld) [#/Vol] Automated basophil count 0.0-0.2 [facility] Basophils/100 WBC Auto (Bld) Ordered By: Augustine Freitas on 10-17-2024 Basophils/100 WBC (Bld) Automated basophil % . [facility] CBC W Auto Differential pane l (Bld)on 10-17-2024 Basophils (Bld) [#/Vol] 0 10*3/uL 0.0 - 0.2 10*3/uL [facility] Basophils/100 WBC Manual cnt (Syn fld) 0.5 % . [facility] Eosinophils (Bld) [#/Vol] 0.1 10*3/uL 0.0 - 0.45 10*3/uL [facility] Eosinophils/100 WBC Manual cnt (Syn fld) 2 % . [facility] Erythrocyte distribution width (RBC) [Ratio] 14.2 % 12.0 - 14.8 % [facility] Hematocrit (Bld) [Volume fraction] 43.9 % 38.8 - 50.0 % [facility] Hemoglobin (Bld) [Mass/Vol] 14.8 g/dL 13.0 - 17.0 g/dL [facility] Lymphocytes (Bld) [#/Vol] 1.5 10*3/uL 1.00 - 4.8 10*3/uL [facility] Lymphocytes/100 WBC Manual cnt (Syn fld) 28.9 % . [facility] MCH (RBC) [Entitic mass] 31.3 pg 27.5 - 35.2 pg [facility] MCHC (RBC) [Mass/Vol] 33.6 g/dL 32.5 - 35.6 g/dL [facility] MCV (RBC) [Entitic vol] 93.1 fL 83.5 - 101 fL [facility] Monocytes (Bld) [#/Vol] 0.5 10*3/uL 0.0 - 0.8 10*3/uL [facility] Monocytes+Macrophages/ 100 WBC Manual cnt (Syn fld) 9.3 % . [facility] Neutrophils (Bld) [#/Vol] 3.2 10*3/uL 1.8 - 7.7 10*3/uL [facility] Neutrophils/100 WBC Manual cnt (Syn fld) 59.3 % . [facility] NRBC 0.1 /100{WBC} 0 - 0.5 /100{WBC} [facility] Platelet mean volume (Bld) [Entitic vol] 9.5 fL 6.6 - 10.1 fL [facility] Platelets (Bld) [#/Vol] 160 10*3/uL 150 - 450 10*3/uL [facility] RBC LM.HPF (Urine sed) [#/Area] 4.72 10*6/uL 3.90 - 5.60 10*6/uL [facility] WBC (Bld) [#/Vol] 5.3 10*3/uL 4.1 - 10.5 10*3/uL [facility] WBC LM.HPF (Urine sed) [#/Area] 5.3 10*3/uL 4.1 - 10.5 10*3/uL [facility] Calcium [Mass/volume] in Ser um or PlasmaOrdered By: Augustine Freitas on 10-17-2024 Calcium [Mass/Vol] Calcium [Mass/volume ] in Serum or Plasma 8.6-10.3 [facility] Carbon dioxide, total [Moles /volume] in Serum or PlasmaOrdered By: Augustine Freitas on 10-17-2024 CO2 [Moles/Vol] Carbon dioxide, tota l [Moles/volume] in Serum or Plasma 21.0-31.0 [facility] Chloride [Moles/volume] in S marnie or PlasmaOrdered By: Augustine Freitas on 10-17-2024 Chloride [Moles/Vol] Chloride [Moles/vol ume] in Serum or Plasma 98-107 [facility] Complete Blood Count Auto Di ffon 10-17-2024 Basophils (Bld) [#/Vol] 0.0 10*3/uL Normal 0.0-0.2 [facility] Comment on above: Result Comment: PERF ORMED BY: [place] [address] PATHOLOGIST UI DEVELOPER DESIGNER GUERDA ESQUIVEL M.D. Performed By: #### C BC, BMP #### [place] [address] [place] Basophils/100 WBC (Bld) 0.5 % Normal . [facility] Comment on above: Performed By: #### C BC, BMP #### [place] [address] [place] Eosinophils (Bld) [#/Vol] 0.1 10*3/uL Normal 0.0-0.45 [facility] Comment on above: Performed By: #### C BC, BMP #### [place] [address] [place] Eosinophils/100 WBC (Bld) 2.0 % Normal . [facility] Comment on above: Performed By: #### C BC, BMP #### [address] Erythrocyte distribution width (RBC) [Ratio] 14.2 % Normal 12.0-14.8 [facility] Comment on above: Performed By: #### C BC, BMP #### [address] Hematocrit (Bld) [Volume fraction] 43.9 % Normal 38.8-50.0 [facility] Comment on above: Performed By: #### C BC, BMP #### [address] Hemoglobin (Bld) [Mass/Vol] 14.8 g/dL Normal 13.0-17.0 [facility] Comment on above: Performed By: #### C BC, BMP #### [address] Lymphocytes (Bld) [#/Vol] 1.5 10*3/uL Normal 1.00-4.8 [facility] Comment on above: Performed By: #### C BC, BMP #### [address] Lymphocytes/100 WBC (Bld) 28.9 % Normal . [facility] Comment on above: Performed By: #### C BC, BMP #### [address] MCH (RBC) [Entitic mass] 31.3 pg Normal 27.5-35.2 [facility] Comment on above: Performed By: #### C BC, BMP #### [address] MCV (RBC) [Entitic vol] 93.1 fL Normal 83.5-101 [facility] Comment on above: Performed By: #### C BC, BMP #### [address] Mean Corpuscular HGB Conc 33.6 g/dL Normal 32.5-35.6 [facility] Comment on above: Performed By: #### C BC, BMP #### [address] [place] [address] [place] Monocytes (Bld) [#/Vol] 0.5 10*3/uL Normal 0.0-0.8 [facility] Comment on above: Performed By: #### C BC, BMP #### [address] Monocytes/100 WBC (Bld) 9.3 % Normal . [facility] Comment on above: Performed By: #### C BC, BMP #### [address] Neutrophils (Bld) [#/Vol] 3.2 10*3/uL Normal 1.8-7.7 [facility] Comment on above: Performed By: #### C BC, BMP #### [address] Neutrophils/100 WBC (Bld) 59.3 % Normal . [facility] Comment on above: Performed By: #### C BC, BMP #### [address] NRBC% 0.1 /100{WBC} Normal 0-0.5 [facility] Comment on above: Performed By: #### C BC, BMP #### [address] Platelet mean volume (Bld) [Entitic vol] 9.5 fL Normal 6.6-10.1 [facility] Comment on above: Performed By: #### C BC, BMP #### [address] Platelets (Bld) [#/Vol] 160 10*3/uL Normal 150-450 [facility] Comment on above: Performed By: #### C BC, BMP #### [address] RBC (Bld) [#/Vol] 4.72 10*6/uL Normal 3.90-5.60 [facility] Comment on above: Performed By: #### C BC, BMP #### [address] WBC (Bld) [#/Vol] 5.3 10*3/uL Normal 4.1-10.5 [facility] Comment on above: Performed By: #### C BC, BMP #### [address] Creatinine [Mass/volume] in Serum or PlasmaOrdered By: Augustine Freitas on 10-17-2024 Creatinine [Mass/Vol] Creatinine [Mass/v olume] in Serum or Plasma High 0.70-1.30 [facility] ECG 12 lead ECGon 10-17-2024 ECG 12 lead ECG [facility] Main [place] [address] [place] [address] Electrocardiograph Report Signed Patient: Tito Goncalves MR#: [id number] 70 : 1945 Acct:[id number] Age/Sex: 79 / M ADM Date: 10/17/24 Loc: Room: Type: [facility] Attending Dr: Augustine Freitas DO Ordering Provider: Augustine Freitas DO Date of Service: 10/17/24 ECG/ECG 12 lead ECG: pst Copies to: Test Reason : Blood Pressure : */* mmHG Vent. Rate : 58 BPM Atrial Rate : 58 BPM P-R Int : 206 ms QRS Dur : 84 ms QT Int : 438 ms P-R-T Axes : 61 25 84 degrees QTcB Int : 429 ms Sinus bradycardia Otherwise normal ECG When compared with ECG of 16-Feb-2024 16:00, Nonspecific T wave abnormality has replaced inverted T waves in Lateral leads Confirmed by Oliver Rubio ([id number]) on 10/17/2024 4:52:19 PM Referred By: Electronically Signed By: Oliver Rubio Transcribed By: MUS Signed By Oliver Rubio MD 10/17/24 2096 Normal [facility] Eosinophils Auto (Bld) [#/Vo l]Ordered By: Augustine Freitas on 10-17-2024 Eosinophils (Bld) [#/Vol] Automated eosinophil count 0.0-0.45 [facility] Eosinophils/100 WBC Auto (Bl d)Ordered By: Augustine Freitas on 10-17-2024 Eosinophils/100 WBC (Bld) Automated eosinophil % . [facility] Erythrocyte distribution wid th Auto (RBC) [Ratio]Ordered By: Augustine Freitas on 10-17-2024 Erythrocyte distribution width (RBC) [Ratio] Erythrocyte distribution width [Ratio] by Automated count 12.0-14.8 [facility] Glucose [Mass/volume] in Ser um or PlasmaOrdered By: Augustine Freitas on 10-17-2024 Glucose [Mass/Vol] Glucose [Mass/volume ] in Serum or Plasma High 70-100 [facility] Comment on above: ADA recommended refe rence rangeRandom Glucose Reference Range is dependent on time and content of last meal. Glucose of more than 200 mg/dL in a nonstressed, ambulatory subject supports the diagnosis of Diabetes Mellitus. Hematocrit Auto (Bld) [Volum e fraction]Ordered By: Augustine Freitas on 10-17-2024 Hematocrit (Bld) [Volume fraction] Hematocrit [Volume Fraction] of Blood by Automated count 38.8-50.0 [facility] Hemoglobin [Mass/volume] in BloodOrdered By: Augustine Freitas on 10-17-2024 Hemoglobin (Bld) [Mass/Vol] Hemoglobin [Mass/volume] in Blood 13.0-17.0 [facility] Leukocytes [#/volume] correc iván for nucleated erythrocytes in Blood by Automated counOrdered By: Augustine Freitas on 10-17-2024 WBC corrected for nucl RBC Auto (Bld) [#/Vol] Leukocytes [#/volume] corrected for nucleated erythrocytes in Blood by Automated coun 4.1-10.5 [facility] Lymphocytes Auto (Bld) [#/Vo l]Ordered By: Augustine Freitas on 10-17-2024 Lymphocytes (Bld) [#/Vol] Lymphocytes [#/volume] in Blood by Automated count 1.00-4.8 [facility] Lymphocytes/100 WBC Auto (Bl d)Ordered By: Augustine Freitas on 10-17-2024 Lymphocytes/100 WBC (Bld) Lymphocytes/100 leukocytes in Blood by Automated count . [facility] MCH Auto (RBC) [Entitic mass ]Ordered By: Augustine Freitas on 10-17-2024 MCH (RBC) [Entitic mass] MCH [Entitic mass] by Automated count 27.5-35.2 [facility] MCHC Auto (RBC) [Mass/Vol]Or dered By: Augustine Freitas on 10-17-2024 MCHC (RBC) [Mass/Vol] MCHC [Mass/volume] by Automated count 32.5-35.6 [facility] MCV Auto (RBC) [Entitic vol] Ordered By: Augustine Freitas on 10-17-2024 MCV (RBC) [Entitic vol] MCV [Entitic volume] by Automated count 83.5-101 [facility] Monocytes Auto (Bld) [#/Vol] Ordered By: Augustine Freitas on 10-17-2024 Monocytes (Bld) [#/Vol] Automated blood monocyte count 0.0-0.8 [facility] Monocytes/100 WBC Auto (Bld) Ordered By: Augustine Freitas on 10-17-2024 Monocytes/100 WBC (Bld) Automated monocyte % . [facility] Neutrophils Auto (Bld) [#/Vo l]Ordered By: Augustine Freitas on 10-17-2024 Neutrophils (Bld) [#/Vol] Neutrophils [#/volume] in Blood by Automated count 1.8-7.7 [facility] Neutrophils/100 WBC Auto (Bl d)Ordered By: Augustine Freitas on 10-17-2024 Neutrophils/100 WBC (Bld) Automated neutrophil % . [facility] No Panel InformationOrdered By: Augustine Freitas on 10-17-2024 Estimated GFR (CKD-EPI) 55.209 mL/Min [facility] Creatinine Clearance (Chem N/A [facility] Nucleated erythrocytes [Pres ence] in Blood by Automated countOrdered By: Augustine Freitas on 10-17-2024 Nucleated RBC Auto Ql (Bld) Nucleated erythrocytes [Presence] in Blood by Automated count 0-0.5 [facility] Platelet mean volume Auto (B ld) [Entitic vol]Ordered By: Augustine Freitas on 10-17-2024 Platelet mean volume (Bld) [Entitic vol] Platelet mean volume [Entitic volume] in Blood by Automated count 6.6-10.1 [facility] Platelets Auto (Bld) [#/Vol] Ordered By: Augustine Freitas on 10-17-2024 Platelets (Bld) [#/Vol] Platelets [#/volume] in Blood by Automated count 150-450 [facility] Potassium [Moles/volume] in Serum or PlasmaOrdered By: Augustine Freitas on 10-17-2024 Potassium [Moles/Vol] Potassium [Moles/v olume] in Serum or Plasma 3.5-5.1 [facility] RBC Auto (Bld) [#/Vol]Ordere d By: Augustine Freitas on 10-17-2024 RBC (Bld) [#/Vol] Erythrocytes [#/volu me] in Blood by Automated count 3.90-5.60 [facility] Serum or plasma anion gap de terminationOrdered By: Augustine Freitas on 10-17-2024 Anion gap [Moles/Vol] Serum or plasma an ion gap determination 6.0-15.0 [facility] Sodium [Moles/volume] in Ser um or PlasmaOrdered By: Augustine Freitas on 10-17-2024 Sodium [Moles/Vol] Sodium [Moles/volume ] in Serum or Plasma 136-145 [facility] Urea nitrogen [Mass/volume] in Serum or PlasmaOrdered By: Augustine Freitas on 10-17-2024 Urea nitrogen [Mass/Vol] Urea nitrogen [Mass/volume] in Serum or Plasma 7-25 [facility] WBC Auto (Bld) [#/Vol]Ordere d By: Augustine Freitas on 10-17-2024 WBC (Bld) [#/Vol] Leukocytes [#/volume ] in Blood by Automated count 4.1-10.5 [facility] No Panel Informationon 10-16 Consent obtained: andre ferrer (The rationale for Mohs as well as the risks, benefits, and alternatives. The risks of infection, scarring, bleeding, prolonged wound healing, incomplete removal, allergy to anesthesia or meds, nerve injury, and recurrence were addressed.) [facility] Protocol: Procedure explained and questions answered to patient or proxy's satisfaction: Yes Test results available and properly labeled: Yes Pathology report reviewed: Yes Photo or diagram used for site identification: Yes Site/side marked: Yes Anticoagulation: Is the patient taking prescription anticoagulant and/or aspirin prescribed/recommended by a physician? Yes (81 mg ASA, Plavix) Was the anticoagulation regimen changed prior to Mohs? No Anesthesia: Anesthesia method: local infiltration Local anesthetic: lidocaine 1% WITH epi and sodium bicarbonate Procedure Details: Biopsy accession number: [id number] Biopsy lab: [facility] Date of biopsy: 10/04/2024 Frozen section biopsy performed: Yes Specimen debulked: No Pre-Op diagnosis: basal cell carcinoma BCC subtype: nodular MohsAIQ Surgical site (if tumor spans multiple areas, please select predominant area): nose Surgery side: midline Surgical site (from skin exam): Dorsum of Nose Pre-operative length (cm): 0.6 Pre-operative width (cm): 0.5 Indications for Mohs surgery: anatomic location where tissue conservation is critical Other indications for Mohs surgery: Central face Previously treated? No Mohs Appropriate Use Criteria Score: 8 Details of micrographic surgery: Mohs accession number: [id number] Micrographic Surgery Details: Post-operative length (cm): 1.8 Post-operative width (cm): 1.2 Number of Mohs stages: 3 Stage 1 Comments: The area was prepped with Betadine, draped in a sterile fashion, and infiltrated with local anesthetic. Sterile technique was used throughout the procedure. The marked area of clinical tumor with a small rim of clinically normal surrounding skin was removed using Mohs technique with beveled edges. Hash guzman were placed for orientation of the specimen. Hemostasis was achieved with electrodessication. After hemostasis, the defect was measured and recorded, a temporary sterile dressing was placed over the wound, and the patient was escorted to the waiting area. The specimen was oriented, mapped, and if necessary, divided into sections. A Mohs map was prepared. The specimen was placed in a labeled vincenzo dish and was taken to the Mohs lab where it was chromacoded and processed. Mohs sections were prepared with serial tissue sections, stained, and evaluated by Dr. Bolton for interpretation of deep and peripheral margins. The Mohs map was marked accordingly. Amount of lidocaine used: 1.0 cc Estimated blood loss: <1.0 cc Defect size: 1.7 x 1.0 cm Number of blocks per stage: 1 Number of positive blocks: 1 Tumor features identified on Mohs section: basal carcinoma Tumor features identified on Mohs section comment: nodular pattern Depth of defect after stage: dermis Immunohistochemical stains utilized: multi-keratin Stage 2 Comments: The patient returned to the procedure room, the dressing was removed, the tumor area was re-prepped and draped, and anesthesia was assessed and augmented as necessary. A layer of tissue around the positive margin(s) was removed, and the tissue was oriented, mapped, and processed in an identical fashion as for Stage 1. Hemostasis was achieved and dressing placed as in Stage 1. The patient was escorted to the waiting area. As with Stage 1, Mohs sections were prepared with serial tissue sections, stained, and evaluated by Dr. Bolton for interpretation of deep and peripheral margins. The Mohs map was updated. Assistants: Cecilio Burnham LPN Amount of lidocaine used: 1.5 cc Estimated blood loss: <1.0 cc Defect size: 1.8 x 1.2 cm Number of blocks: 1 Number of positive blocks: 1 Tumor features identified on Mohs section: basal carcinoma Tumor features identified on Mohs section comment: nodular pattern Depth of defect after stage comment: deep dermis Stage 3 Comments: The patient returned to the procedure room, the dressing was removed, the tumor area was re-prepped and draped, and anesthesia was assessed and augmented as necessary. A layer of tissue around the positive margin(s) was removed, and the tissue was oriented, mapped, and processed in an identical fashion as for Stage 1. Hemostasis was achieved and dressing placed as in Stage 1. The patient was escorted to the waiting area. As with Stage 1, Mohs sections were prepared with serial tissue sections, stained, and evaluated by Dr. Bolton for interpretation of deep and peripheral margins. The Mohs map was updated. Assistants: Cecilio Burnham LPN Amount of lidocaine used: 0.5 cc Estimated blood loss: < 1.0 cc Defect size: 1.8 x 1.2 cm Number of bl (more content not included)... [employer] [facility] No Panel Informationon 10-04 Type of biopsy: [place] ential Informed consent: discussed and consent obtained Informed consent comment: The risks and benefits of the biopsy were discussed. Risks include but are not limited to bleeding, infection, scarring, pain, and nerve damage. An opportunity to ask questions prior to the procedure was permitted and all questions were answered. Patient was prepped and draped in usual sterile fashion: area cleansed with alcohol. Anesthesia: the lesion was anesthetized in a standard fashion Anesthetic: 1% lidocaine w/ epinephrine 1-100,000 buffered w/ 8.4% NaHCO3 Instrument used: DermaBlade Hemostasis achieved with: electrodesiccation Outcome: patient tolerated procedure well Outcome comment: The specimen was placed in a prelabeled formalin container to be sent for pathology Post-procedure details: sterile dressing applied and wound care instructions given Post-procedure details comment: Emphasized need to contact clinic for any signs of infection, uncontrollable bleeding, or complications. Dressing type: bandage Additional details: Photo taken Amount of lidocaine used: 0.4 cc [facility] No Panel InformationOrdered By: aKren Mckinnon on 10-04-2024 [facility] Optical coherence tomography study reporton 09-07-2024 Critical access hospital Radiology Study observation (narrative) [facility] Basophils Auto (Bld) [#/Vol] on 08-14-2024 Basophils (Bld) [#/Vol] Automated basophil count 0.0-0.1 [facility] Basophils/100 WBC Auto (Bld) on 08-14-2024 Basophils/100 WBC (Bld) Automated basophil % 0.2-2.0 [facility] Eosinophils/100 WBC Auto (Bl d)on 08-14-2024 Eosinophils/100 WBC (Bld) Automated eosinophil % 0.9-7.0 [facility] Erythrocyte distribution wid th Auto (RBC) [Ratio]on 08-14-2024 Erythrocyte distribution width (RBC) [Ratio] Erythrocyte distribution width [Ratio] by Automated count High 11.0-15.0 [facility] Estimated glomerular filtrat ion rate (GFR) non- Americanon 08-14-2024 GFR/1.73 sq M.predicted among non-blacks MDRD (S/P/Bld) [Vol rate/Area] Estimated glomerular filtration rate (GFR) non- Low >=60 mL/min/1.7 3m 2 [facility] Globulin Calc (S) [Mass/Vol] on 08-14-2024 Globulin (S) [Mass/Vol] Serum globulin measurement by calculation (mass/volume) [facility] Glucose mean value [Mass/vol ume] in Blood Estimated from glycated hemoglobinon 08-14-2024 Average glucose Estimated from glycated hemoglobin (Bld) [Mass/Vol] Glucose mean value [Mass/volume] in Blood Estimated from glycated hemoglobin [facility] Hematocrit Auto (Bld) [Volum e fraction]on 08-14-2024 Hematocrit (Bld) [Volume fraction] Hematocrit [Volume Fraction] of Blood by Automated count 42.0-54.0 [facility] Hemoglobin [Mass/volume] in Bloodon 08-14-2024 Hemoglobin (Bld) [Mass/Vol] Hemoglobin [Mass/volume] in Blood 14.0-18.0 [facility] Laboratory - Chemistry and C hemistry - challengeon 08-14-2024 Albumin [Mass/Vol] 3.6 g/dL 3.4-5.0 [facility] ALP [Catalytic activity/Vol] 78 U/L 46-116 [facility] ALT [Catalytic activity/Vol] 25 U/L 16-63 [facility] AST [Catalytic activity/Vol] 16 U/L 15-37 [facility] Bilirubin [Mass/Vol] 0.7 mg/dL 0.2-1.0 [facility] Calcium [Mass/Vol] 8.8 mg/dL 8.5-10.1 [facility] Chloride [Moles/Vol] 104 mmol/L 98-107 [facility] CO2 [Moles/Vol] 28.7 mmol/L 21.0-32.0 [facility] Creatinine [Mass/Vol] 1.66 mg/dL High 0.70-1.30 [facility] GFR/1.73 sq M.predicted MDRD (S/P/Bld) [Vol rate/Area] 49 mL/min/{1.73_m2} Low >=60 mL/min/1.7 3m 2 [facility] Glucose [Mass/Vol] 143 mg/dL High 74-106 [facility] Potassium [Moles/Vol] 4.5 mmol/L 3.5-5.1 [facility] Protein [Mass/Vol] 6.7 g/dL 6.4-8.2 [facility] Sodium [Moles/Vol] 142 mmol/L 136-145 [facility] Urea nitrogen [Mass/Vol] 24.0 mg/dL High 7.0-18.0 [facility] Urea nitrogen/Creatinine [Mass ratio] 14.5 mg/mg [facility] Laboratory - Hematology and Cell countson 08-14-2024 HbA1c (Bld) [Mass fraction] 7.2 % High 4.5-6.2 [facility] Comment on above: ADA RECOMMENDED LIMI T 4.0 - 6.0ADA THERAPEUTIC TARGET < 7.0ACTION SUGGESTED> 7.0 Immature granulocytes/100 WBC (Bld) 0.0 % 0.0-0.5 [facility] Leukocytes [#/volume] correc iván for nucleated erythrocytes in Blood by Automated counon 08-14-2024 WBC corrected for nucl RBC Auto (Bld) [#/Vol] Leukocytes [#/volume] corrected for nucleated erythrocytes in Blood by Automated coun 4.0-11.0 [facility] Lymphocytes Auto (Bld) [#/Vo l]on 08-14-2024 Lymphocytes (Bld) [#/Vol] Lymphocytes [#/volume] in Blood by Automated count 1.2-3.8 [facility] Lymphocytes/100 WBC Auto (Bl d)on 08-14-2024 Lymphocytes/100 WBC (Bld) Lymphocytes/100 leukocytes in Blood by Automated count 20.5-60.0 [facility] MCH Auto (RBC) [Entitic mass ]on 08-14-2024 MCH (RBC) [Entitic mass] MCH [Entitic mass] by Automated count 25.9-34.0 [facility] MCHC Auto (RBC) [Mass/Vol]on 08-14-2024 MCHC (RBC) [Mass/Vol] MCHC [Mass/volume] by Automated count 29.9-35.2 [facility] MCV Auto (RBC) [Entitic vol] on 08-14-2024 MCV (RBC) [Entitic vol] MCV [Entitic volume] by Automated count 80.0-94.0 [facility] Microalbumin [Mass/volume] i n Urineon 08-14-2024 Albumin DL <= 20 mg/L (U) [Mass/Vol] Microalbumin [Mass/volume] in Urine <=30.0 [facility] Monocytes Auto (Bld) [#/Vol] on 08-14-2024 Monocytes (Bld) [#/Vol] Automated blood monocyte count 0.3-0.8 [facility] Monocytes/100 WBC Auto (Bld) on 08-14-2024 Monocytes/100 WBC (Bld) Automated monocyte % 1.7-12.0 [facility] Neutrophils Auto (Bld) [#/Vo l]on 08-14-2024 Neutrophils (Bld) [#/Vol] Neutrophils [#/volume] in Blood by Automated count 1.4-6.5 [facility] Neutrophils/100 WBC Auto (Bl d)on 08-14-2024 Neutrophils/100 WBC (Bld) Automated neutrophil % 43.0-75.0 [facility] No Panel Informationon 08-14 Eosinophils # (Auto) 0.1 10 3/uL 0.0-0.7 [facility] Immature Granulocyte # (Auto) 0.00 10 3/uL 0.00-0.03 [facility] Prostate Specific Antigen Screen 1.77 ng/mL <=4.00 [facility] Platelet mean volume Auto (B ld) [Entitic vol]on 08-14-2024 Platelet mean volume (Bld) [Entitic vol] Platelet mean volume [Entitic volume] in Blood by Automated count 9.5-13.5 [facility] Platelets Auto (Bld) [#/Vol] on 08-14-2024 Platelets (Bld) [#/Vol] Platelets [#/volume] in Blood by Automated count 150-450 [facility] RBC Auto (Bld) [#/Vol]on RBC (Bld) [#/Vol] Erythrocytes [#/volu me] in Blood by Automated count Low 4.70-6.10 [facility] Serum or plasma albumin/glob ulin mass ratioon 08-14-2024 Albumin/Globulin [Mass ratio] Serum or plasma albumin/globulin mass ratio [facility] Serum or plasma anion gap de terminationon 08-14-2024 Anion gap [Moles/Vol] Serum or plasma an ion gap determination [facility] Office Visiton 07-11-2024 Follow-up visit [id number] Amina Goncalves 1945 M Date Provider Department Center 07/11/2024 [id number] Family History Problem Relation Age of Onset Cancer Mother Heart attack Other Family Status - Relation Status Age at Mother Other Level of Service:64002 [place] OFFICE/OUTPATIENT ESTABLISHED LOW MDM 20 MIN Normal [facility] Basophils Auto (Bld) [#/Vol] on 06-27-2024 Basophils (Bld) [#/Vol] 0.0 10 3/uL 0.0-0.1 [facility] Basophils/100 WBC Auto (Bld) on 06-27-2024 Basophils/100 WBC (Bld) 0.4 % 0.2-2.0 [facility] Eosinophils/100 WBC Auto (Bl d)on 06-27-2024 Eosinophils/100 WBC (Bld) 2.0 % 0.9-7.0 [facility] Erythrocyte distribution wid th Auto (RBC) [Ratio]on 06-27-2024 Erythrocyte distribution width (RBC) [Ratio] 16.6 % High 11.0-15.0 [facility] Hematocrit Auto (Bld) [Volum e fraction]on 06-27-2024 Hematocrit (Bld) [Volume fraction] 38.5 % Low 42.0-54.0 [facility] Hemoglobin [Mass/volume] in Bloodon 06-27-2024 Hemoglobin (Bld) [Mass/Vol] 12.5 g/dL Low 14.0-18.0 [facility] Iron binding capacity [Mass/ volume] in Serum or Plasmaon 06-27-2024 Iron binding capacity [Mass/Vol] 314.0 ug/dL 250.0-450. 0 [facility] Iron saturation [Mass Fracti on] in Serum or Plasmaon 06-27-2024 Iron saturation [Mass fraction] 21.3 % [facility] Laboratory - Chemistry and C hemistry - challengeon 06-27-2024 Cobalamin (Vitamin B12) [Mass/Vol] 640 pg/mL 232-1245 [facility] Comment on above: Performed at: [address] [id number] Director: Erasmo Mack PhD, Phone: [phone] Ferritin [Mass/Vol] 25.0 ng/mL Low 26.0-388.0 [facility] Iron [Mass/Vol] 67.0 ug/dL 65.0-175.0 [facility] Laboratory - Hematology and Cell countson 06-27-2024 Immature granulocytes/100 WBC (Bld) 0.4 % 0.0-0.5 [facility] Leukocytes [#/volume] correc iván for nucleated erythrocytes in Blood by Automated counon 06-27-2024 WBC corrected for nucl RBC Auto (Bld) [#/Vol] 5.0 10 3/uL 4.0-11.0 [facility] Lymphocytes Auto (Bld) [#/Vo l]on 06-27-2024 Lymphocytes (Bld) [#/Vol] 1.4 10 3/uL 1.2-3.8 [facility] Lymphocytes/100 WBC Auto (Bl d)on 06-27-2024 Lymphocytes/100 WBC (Bld) 27.8 % 20.5-60.0 [facility] MCH Auto (RBC) [Entitic mass ]on 06-27-2024 MCH (RBC) [Entitic mass] 28.8 pg 25.9-34.0 [facility] MCHC Auto (RBC) [Mass/Vol]on 06-27-2024 MCHC (RBC) [Mass/Vol] 32.5 g/dL 29.9-35.2 [facility] MCV Auto (RBC) [Entitic vol] on 06-27-2024 MCV (RBC) [Entitic vol] 88.7 fL 80.0-94.0 [facility] Monocytes Auto (Bld) [#/Vol] on 06-27-2024 Monocytes (Bld) [#/Vol] 0.4 10 3/uL 0.3-0.8 [facility] Monocytes/100 WBC Auto (Bld) on 06-27-2024 Monocytes/100 WBC (Bld) 8.3 % 1.7-12.0 [facility] Neutrophils Auto (Bld) [#/Vo l]on 06-27-2024 Neutrophils (Bld) [#/Vol] 3.1 10 3/uL 1.4-6.5 [facility] Neutrophils/100 WBC Auto (Bl d)on 06-27-2024 Neutrophils/100 WBC (Bld) 61.1 % 43.0-75.0 [facility] No Panel Informationon 06-27 Eosinophils # (Auto) 0.1 10 3/uL 0.0-0.7 [facility] Folate 22.10 ng/mL 8.60-58.90 [facility] Immature Granulocyte # (Auto) 0.02 10 3/uL 0.00-0.03 [facility] Platelet mean volume Auto (B ld) [Entitic vol]on 06-27-2024 Platelet mean volume (Bld) [Entitic vol] 11.2 fL 9.5-13.5 [facility] Platelets Auto (Bld) [#/Vol] on 06-27-2024 Platelets (Bld) [#/Vol] 162 10 3/uL 150-450 [facility] RBC Auto (Bld) [#/Vol]on RBC (Bld) [#/Vol] 4.34 10 6/uL Low 4.70-6.10 [facility] No Panel Informationon 06-19 Critical access hospital Optical coherence tomography study reporton 06-08-2024 Critical [facility] hospital Radiology Study observation (narrative) [facility] Basophils Auto (Bld) [#/Vol] on 04-18-2024 Basophils [...] 04-18-2024 Iron binding capacity [Mass/Vol] 339.0 ug/dL 250.0-450. 0 [facility] Iron saturation [Mass Fracti on] in Serum or Plasmaon 04-18-2024 Iron saturation [Mass fraction] 11.8 % [facility] Laboratory - Chemistry and C hemistry - challengeon 04-18-2024 Cobalamin (Vitamin B12) [Mass/Vol] 594.0 pg/mL 193.0-986. 0 [facility] Ferritin [Mass/Vol] 20.0 ng/mL Low 26.0-388.0 [facility] Iron [Mass/Vol] 40.0 ug/dL Low 65.0-175.0 [...] 04-18-2024 MCHC (RBC) [Mass/Vol] 31.5 g/dL 29.9-35.2 [facility] MCV Auto (RBC) [Entitic vol] on 04-18-2024 [...] Eosinophils # (Auto) 0.2 10 3/uL 0.0-0.7 [facility] Immature Granulocyte # (Auto) 0.00 10 3/uL 0.00-0.03 [facility] Platelet mean volume Auto (B ld) [Entitic vol]on 04-18-2024 Platelet mean volume (Bld) [Entitic vol] 11.1 fL 9.5-13.5 [facility] Platelets Auto (Bld) [#/Vol] on 04-18-2024 Platelets (Bld) [#/Vol] 185 10 3/uL 150-450 [facility] RBC Auto (Bld) [#/Vol]on RBC (Bld) [#/Vol] 4.22 10 6/uL Low 4.70-6.10 [facility] Office Visiton 04-12-2024 Follow-up visit [id number] Amina Goncalves 1945 M Date Provider Department Center 04/12/2024 [facility] Family History Problem Relation Age of Onset Cancer Mother Heart attack Other Family Status - Relation Status Age at Mother Other Level of Service:07602 [place] OFFICE/OUTPATIENT ESTABLISHED MOD MDM 30 MIN Normal [facility] Basophils Auto (Bld) [#/Vol] on 04-02-2024 Basophils [...] 04-02-2024 Albumin [Mass/Vol] 2.8 g/dL Low 3.4-5.0 [facility] ALP [Catalytic activity/Vol] 76 U/L 46-116 [facility] ALT [Catalytic activity/Vol] 14 U/L Low 16-63 [facility] AST [Catalytic activity/Vol] 11 U/L Low 15-37 [facility] Bilirubin [Mass/Vol] 0.4 mg/dL 0.2-1.0 [facility] Calcium [Mass/Vol] 8.4 mg/dL Low 8.5-10.1 [facility] Chloride [Moles/Vol] 107 mmol/L 98-107 [facility] CO2 [Moles/Vol] 28.1 mmol/L 21.0-32.0 [facility] Creatinine [Mass/Vol] 1.40 mg/dL High 0.70-1.30 [facility] GFR/1.73 sq M.predicted MDRD (S/P/Bld) [Vol rate/Area] 59 mL/min/{1.73_m2} Low >=60 [facility] Glucose [Mass/Vol] 141 mg/dL High 74-106 [facility] Potassium [Moles/Vol] 4.3 mmol/L 3.5-5.1 [facility] Protein [Mass/Vol] 5.8 g/dL Low 6.4-8.2 [facility] Sodium [Moles/Vol] 142 mmol/L 136-145 [facility] Urea nitrogen [Mass/Vol] 16.0 mg/dL 7.0-18.0 [facility] [...] 04-02-2024 MCHC (RBC) [Mass/Vol] 31.6 g/dL 29.9-35.2 [facility] MCV Auto (RBC) [Entitic vol] [...] Eosinophils # (Auto) 0.2 10 3/uL 0.0-0.7 [facility] Immature Granulocyte # (Auto) 0.01 [...] (Bld) [#/Vol] 3.71 10 6/uL Low 4.70-6.10 [facility] Serum or plasma albumin/glob ulin mass ratioon 04-02-2024 Albumin/Globulin [Mass ratio] 0.9 {ratio} [facility] Serum or plasma anion gap de terminationon 04-02-2024 Anion gap [Moles/Vol] 11.2 mmol/L Fi [facility] Basophils Auto (Bld) [#/Vol] on 04-01-2024 Basophils [...] 04-01-2024 Albumin [Mass/Vol] 3.3 g/dL Low 3.4-5.0 [facility] ALP [Catalytic activity/Vol] 91 U/L 46-116 [facility] ALT [Catalytic activity/Vol] 19 U/L 16-63 [facility] AST [Catalytic activity/Vol] 12 U/L Low 15-37 [facility] Bilirubin [Mass/Vol] 0.4 mg/dL 0.2-1.0 [facility] Calcium [Mass/Vol] 8.5 mg/dL 8.5-10.1 [facility] Chloride [Moles/Vol] 102 mmol/L 98-107 [facility] CO2 [Moles/Vol] 26.5 mmol/L 21.0-32.0 [facility] Creatinine [Mass/Vol] 1.56 mg/dL High 0.70-1.30 [facility] GFR/1.73 sq M.predicted MDRD (S/P/Bld) [Vol rate/Area] 52 mL/min/{1.73_m2} Low >=60 [facility] Glucose [Mass/Vol] 234 mg/dL High 74-106 [facility] Natriuretic peptide B (Bld) [Mass/Vol] 284.0 pg/mL <=1800.0 [facility] Potassium [Moles/Vol] 4.2 mmol/L 3.5-5.1 [facility] Protein [Mass/Vol] 6.6 g/dL 6.4-8.2 [facility] Sodium [Moles/Vol] 138 mmol/L 136-145 [facility] Urea nitrogen [Mass/Vol] 18.0 mg/dL 7.0-18.0 [facility] [...] 04-01-2024 MCHC (RBC) [Mass/Vol] 31.2 g/dL 29.9-35.2 [facility] MCV Auto (RBC) [Entitic vol] [...] Eosinophils # (Auto) 0.1 10 3/uL 0.0-0.7 [facility] Immature Granulocyte # (Auto) 0.01 10 3/uL 0.00-0.03 [facility] Platelet mean volume Auto (B ld) [Entitic vol]on 04-01-2024 Platelet mean volume (Bld) [Entitic vol] 11.8 fL 9.5-13.5 [facility] Platelets Auto (Bld) [#/Vol] on 04-01-2024 Platelets (Bld) [#/Vol] 152 10 3/uL 150-450 [facility] Prothrombin time (PT)on PT Coag (PPP) [Time] 10.4 s 9.0-11.6 [facility] RBC Auto (Bld) [#/Vol]on RBC (Bld) [#/Vol] 4.04 10 6/uL Low 4.70-6.10 [facility] Serum or plasma albumin/glob ulin mass ratioon 04-01-2024 Albumin/Globulin [Mass ratio] 1.0 {ratio} [facility] Serum or plasma anion gap de terminationon 04-01-2024 Anion gap [Moles/Vol] 13.7 mmol/L [facility] Office Visiton 03-22-2024 Follow-up visit [id number] Amina Goncalves 1945 M Date Provider Department Center 03/22/[address] [facility] Rosalina [facility] Family History Problem Relation Age of Onset Cancer Mother Heart attack Other Family Status - Relation Status Age at Mother Other Level of Service:06188 [place] OFFICE/OUTPATIENT ESTABLISHED LOW MDM 20 MIN Normal [facility] HPon 03-16-2024 History Of Present I llness [...] a hospital admission) Transesophageal echo (JESSICA) 01/24/2024 [id number] Final Review of Systems Constitutional: Positive for [...] left atrial appendage closure per protocol. Normal [facility] NURSNOTEon 03-16-2024 NURSNOTE Bedside swallow stud y passed. Normal [facility] NURSNOTE RN educated pt on d/ c instructions. RN encouraged pt to voice any questions or concerns. Pt verbalizes no questions or concerns at this time. Normal [facility] Glucose mean value [Mass/vol ume] in Blood [...] on 02-24-2024 Glucose [Mass/Vol] 124 mg/dL Normal [facility] Comment on above: Random Glucose Refer ence Range is dependent on time and content of last meal. Glucose of more than 200 mg/dL in a nonstressed, ambulatory subject supports the diagnosis of Diabetes Mellitus. Result Comment: [place] om Glucose Reference Range is dependent on time and content of last meal. Glucose of more than 200 mg/dL in a nonstressed, ambulatory subject supports the diagnosis of Diabetes Mellitus. Performed By: #### G LULS #### Point of Care testing , Glucose Poct Glucometerson 0 02-24-2024 Commemt1 Glu2: Cleaned Meter Normal [facility] Comment on above: Result Comment: PERF ORMED BY: [place] [address] PATHOLOGIST UI DEVELOPER DESIGNER RICKY STRANGE M.D. Performed By: #### G LULS #### Point of Care testing , No Panel InformationOrdered By: Augustine Freitas on 02-24-2024 Bedside Glucose Comment Glu2: cleaned meter [facility] 36on 02-16-2024 36 There are pictures i n media Normal [facility] ECG 12 lead ECGon 02-16-2024 ECG 12 lead ECG [facility] [place] [address] Electrocardiograph Report Signed Patient: Tito Goncalves MR#: [id number] : 1945 Acct:[id number] Age/Sex: 79 / M ADM Date: 02/16/24 Loc: PS [facility]: Augustine Freitas DO Ordering Provider: [...] T wave abnormality Confirmed by Viviane Herman ([id number]) on 02/17/2024 12:43:51 PM Referred By: ZENA Electronically Signed By:Vivinae Herman Transcribed By: QI Signed By Viviane Herman MD 4 [phone] Normal [facility] Office Visiton 02-09-2024 Follow-up visit [id number] Amina Goncalves 1945 M Date Provider Department Center 02/09/2024 Daily-[facility] Family History Problem Relation Age of Onset Cancer Mother Heart attack Other Family Status - Relation Status Age at Mother Other Level of Service:86606 [place] OFFICE/OUTPATIENT ESTABLISHED LOW MDM 20 MIN Reason for Visit and Comments: Atrial Fibrillation [80] - S/p LAAO with Amulet device Normal [facility] 30on 01-29-2024 30 The patient is Moder [...] Goal: Maintains hematologic stability Outcome: Progressing Normal [facility] BASIC METABOLIC PANELon 05-0 Anion gap [Moles/Vol] 11 mmol/L Normal 7-20 [facility] Comment on above: Performed By: #### L [id number] #### [facility] ([facility] [address] [place] [address] Calcium [Mass/Vol] 8.0 mg/dL Low 8.6-10.3 [facility] Comment on above: Performed By: #### L [id number] #### [facility] ([facility] [place] [address] [place] [address] Chloride [Moles/Vol] 109 mmol/L High 98-107 [facility] Comment on above: Performed By: #### L [id number] #### [facility] ([facility] [place] [address] [place] [address] CO2 [Moles/Vol] 24 mmol/L Normal 21-31 [facility] Comment on above: Performed By: #### L [id number] #### [facility] ([facility] [place]) [address] [place] [address] Creatinine [Mass/Vol] 1.17 mg/dL Normal 0.70-1.30 [facility] Comment on above: Performed By: #### L [id number] #### [facility] ([facility] [place]) [address] [place] [address] GLOMERULAR FILTRATION RATE ML/MIN/1.73 SQ M.PREDICTED 63.8 mL/min/1.73m*2 Normal >60.0 [facility] Comment on above: Result Comment: [facility]???s estimated glomerular filtration rate (eGFR) will no [...] #### [facility] ([facility]) [address] [place] [address] Glucose [Mass/Vol] 125 mg/dL High 70-100 [facility] Comment on above: Performed By: #### L [id number] #### [facility] ([facility]) [address] [place] [address] Potassium [Moles/Vol] 3.6 mmol/L Normal 3.5-5.1 [facility] Comment on above: Performed By: #### L [id number] #### [facility] ([facility] [place]) [address] [place] [address] Sodium [Moles/Vol] 140 mmol/L Normal 136-145 [facility] Comment on above: Performed By: #### L [id number] #### [facility] ([facility] [place]) [address] [place] [address] Urea nitrogen [Mass/Vol] 22 mg/dL Normal 7-25 [facility] Comment on above: Performed By: #### L [id number] #### [facility] ([facility] [place] [address] [address] UREA NITROGEN/CREATININE (MASS RATIO) IN SER/PLAS 18.8 Normal [facility] Comment on above: Performed By: #### L [id number] #### [facility] ([facility] [place]) [address] [place] [address] CBCon 01-29-2024 Erythrocyte distribution width (RBC) [Ratio] 14.6 % Normal 11.5-15.0 [facility] Comment on above: Performed By: #### L [id number] #### [facility] ([facility] [place]) [address] [place] [address] ERYTHROCYTE MEAN CORPUSCULAR HEMOGLOBIN CONCENTRATION (G/DL) BY AUTOMATED 32.8 g/dL Normal 32.0-35.0 [facility] Comment on above: Performed By: #### L [id number] #### [facility] ([facility] [place]) [address] [place] [address] Hematocrit (Bld) [Volume fraction] 30.5 % Low 39.0-55.0 [facility] Comment on above: Performed By: #### L [id number] #### [facility] ([facility] [address] [place] [address] Hemoglobin (Bld) [Mass/Vol] 10.0 g/dL Low 13.0-17.0 [facility] Comment on above: Performed By: #### L [id number] #### [facility] ([facility] [place]) [address] [place] [address] MCH (RBC) [Entitic mass] 29.1 pg Normal 27.0-33.0 [facility] Comment on above: Performed By: #### L [id number] #### [facility] ([facility] [place]) [address] [address] MCV (RBC) [Entitic vol] 88.7 fL Normal 82.0-98.0 [facility] Comment on above: Performed By: #### L [id number] #### [facility] ([facility] [place]) [address] [place] [address] PLATELETS (10*3/UL) IN BLOOD AUTOMATED COUNT 151 10*3/uL Normal 150-400 [facility] Comment on above: Performed By: #### L [id number] #### [facility] ([facility] [place]) [address] [place] [address] RBC (Bld) [#/Vol] 3.44 10*6/uL Low 4.20-5.70 [facility] Comment on above: Performed By: #### L [id number] #### [facility] ([facility] [place] [address] [place] [address] WBC (Bld) [#/Vol] 6.43 10*3/uL Normal 4.00-10.60 [facility] Comment on above: Performed By: #### L [id number] #### [facility] ([facility] [place]) [address] [place] [address] HEMOGLOBIN A1Con 01-29-2024 Glucose [Mass/Vol] 163 mg/dL Normal [facility] Comment on above: Performed By: #### L [id number] #### [facility] ([facility] [place]) [address] [place] [address] HbA1c (Bld) [Mass fraction] 7.3 % High 4.0-6.0 [facility] Comment on above: Performed By: #### L [id number] #### [facility] ([facility] [place]) [address] [place] [address] POCT GLUCOSE METER UNSOLICIT ED RESULTSon 01-29-2024 Glucose [Mass/Vol] 218 mg/dL High 70-105 [facility] Comment on above: Order Comment: Waive d Testing in the ED is performed under the ED CLIA certificate #[id number]. Result Comment: [email or web address] Performed By: #### L [id number] ####[facility] ([facility] [place] [address] Glucose [Mass/Vol] 138 mg/dL High 70-105 [facility] Comment on above: Order Comment: Waive d Testing in the ED is performed under the ED CLIA certificate #[id number]. Result Comment: [email or web address] Performed By: #### L [id number] #### [facility] ([facility]) [address] [place] [address] 30on 01-28-2024 30 The patient is Moder [...] and behaviors that affect risk of falls [place] fall precautions as indicated by assessment Problem: [...] Goal: Maintains hematologic stability Outcome: Progressing Normal [facility] BASIC METABOLIC PANELon 05-0 Anion gap [Moles/Vol] 12 mmol/L Normal 7-20 [facility] Comment on above: Performed By: #### L [id number] ####[facility] ([facility] [place] [address] Calcium [Mass/Vol] 7.7 mg/dL Low 8.6-10.3 [facility] Comment on above: Performed By: #### L [id number] ####[facility] ([facility])[address] [place] [address] Chloride [Moles/Vol] 108 mmol/L High 98-107 [facility] Comment on above: Performed By: #### L [id number] ####[facility] ([facility])[address] [place] [address] CO2 [Moles/Vol] 21 mmol/L Normal 21-31 [facility] Comment on above: Performed By: #### L [id number] ####[facility] ([facility])[address] [place] [address] Creatinine [Mass/Vol] 1.16 mg/dL Normal 0.70-1.30 [facility] Comment on above: Performed By: #### L [id number] ####[facility] ([facility] [place])[address] [place] [address] GLOMERULAR FILTRATION RATE ML/MIN/1.73 SQ M.PREDICTED 64.5 mL/min/1.73m*2 Normal >60.0 [facility] Comment on above: Result Comment: The [facility]???s estimated glomerular filtration rate (eGFR) will no [...] MEDICAL CENTER LAB ([facility])[address] [place] [address] Glucose [Mass/Vol] 143 mg/dL High 70-100 [facility] Comment on above: Performed By: #### L [id number] ####[facility] ([facility])[address] [place] [address] Potassium [Moles/Vol] 3.3 mmol/L Low 3.5-5.1 [facility] Comment on above: Performed By: #### L [id number] ####[facility] ([facility])[address] [place] [address] Sodium [Moles/Vol] 138 mmol/L Normal 136-145 [facility] Comment on above: Performed By: #### L [id number] ####[facility] ([facility])[address] [place] [address] Urea nitrogen [Mass/Vol] 27 mg/dL High 7-25 [facility] Comment on above: Performed By: #### L [id number] ####[facility] ([facility])[address] [place] [address] UREA NITROGEN/CREATININE (MASS RATIO) IN SER/PLAS 23.3 Normal [facility] Comment on above: Performed By: #### L [id number] ####[facility] ([facility])[address] [place] [address] CBCon 01-28-2024 Erythrocyte distribution width (RBC) [Ratio] 14.4 % Normal 11.5-15.0 [facility] Comment on above: Performed By: #### L [id number] #### [facility] [address] [place] [address] ERYTHROCYTE MEAN CORPUSCULAR HEMOGLOBIN CONCENTRATION (G/DL) BY AUTOMATED 32.8 g/dL Normal 32.0-35.0 [facility] Comment on above: Performed By: #### L [id number] #### [facility] ([facility] [address] [place] [place] [address] Hematocrit (Bld) [Volume fraction] 31.4 % Low 39.0-55.0 [facility] Comment on above: Performed By: #### L [id number] #### [facility] ([facility] [address] [place] [address] Hemoglobin (Bld) [Mass/Vol] 10.3 g/dL Low 13.0-17.0 [facility] Comment on above: Performed By: #### L [id number] #### [facility] ([facility] [address] [place] [address] MCH (RBC) [Entitic mass] 29.0 pg Normal 27.0-33.0 [facility] Comment on above: Performed By: #### L [id number] #### [facility] ([facility]) [address] [place] [address] MCV (RBC) [Entitic vol] 88.5 fL Normal 82.0-98.0 [facility] Comment on above: Performed By: #### L [id number] #### [facility] [address] [place] [address] PLATELETS (10*3/UL) IN BLOOD AUTOMATED COUNT 134 10*3/uL Low 150-400 [facility] Comment on above: Performed By: #### L [id number] #### [facility] [address] [address] RBC (Bld) [#/Vol] 3.55 10*6/uL Low 4.20-5.70 [facility] Comment on above: Performed By: #### L [id number] #### [facility] ([facility] [address] [place] [address] WBC (Bld) [#/Vol] 6.52 10*3/uL Normal 4.00-10.60 [facility] Comment on above: Performed By: #### L [id number] #### [facility] ([facility] [address] [place] [address] MAGNESIUMon 01-28-2024 Magnesium [Mass/Vol] 1.8 mg/dL Low 1.9-2.7 [facility] Comment on above: Performed By: #### L [id number] ####[facility] ([facility] [place] [address] PHOSPHORUSon 01-28-2024 Magnesium [Mass/Vol] 2.5 mg/dL Normal 2.5-5.0 [facility] Comment on above: Performed By: #### L [id number] ####[facility] ([facility] [place] [address] POCT GLUCOSE METER UNSOLICIT ED RESULTSon 01-28-2024 Glucose [Mass/Vol] 258 mg/dL High 70-105 [facility] Comment on above: Order Comment: Waive d Testing in the ED is performed under the ED CLIA certificate #[id number]. Result Comment: [email or web address] Performed By: #### L [id number] #### [facility] ([facility] [address] [place] [address] Glucose [Mass/Vol] 133 mg/dL High 70-105 [facility] Comment on above: Order Comment: Waive d Testing in the ED is performed under the ED CLIA certificate #[id number]. Result Comment: [email or web address] Performed By: #### L [id number] ####[facility] ([facility] [place] [address] Glucose [Mass/Vol] 260 mg/dL High 70-105 [facility] Comment on above: Order Comment: Waive d Testing in the ED is performed under the ED CLIA certificate #[id number]. Result Comment: [email or web address] Performed By: #### L [id number] #### [facility] ([facility]) [address] [place] [address] Glucose [Mass/Vol] 140 mg/dL High 70-105 [facility] Comment on above: Order Comment: Waive d Testing in the ED is performed under the ED CLIA certificate #[id number]. Result Comment: [email or web address] Performed By: #### L [id number] ####[facility] ([facility])[address] [place] [address] 30on 01-27-2024 30 Daily Case Managemen t Update Multidisciplinary rounds have been completed. 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 Pericardial drain remains in place. On amiodarone gtt. Plan to discharge home when medically cleared. Diet: Dietary Orders (From admission, onward) Start Ordered 01/26/24 1247 Special Kitchen Request Once Comments: Chicken noodle soup Fruit cup Diet coke Tilapia (plain) [place] cake 01/26/24 1246 01/26/24 1246 Regular Diet [...] Answer: eval and treat 01/26/24 1241 Normal [facility] 30 The patient is Moder ately Stable [...] medication and electrolyte replacement as ordered Normal [facility] BASIC METABOLIC PANELon 05-0 Anion gap [Moles/Vol] 11 mmol/L Normal 7-20 [facility] Comment on above: Performed By: #### L [id number] ####[facility] ([facility])[address] [place] [address] Calcium [Mass/Vol] 7.9 mg/dL Low 8.6-10.3 [facility] Comment on above: Performed By: #### L [id number] ####[facility] ([facility])[address] [place] [address] Chloride [Moles/Vol] 108 mmol/L High 98-107 [facility] Comment on above: Performed By: #### L [id number] ####[facility] ([facility])[address] [place] [address] CO2 [Moles/Vol] 22 mmol/L Normal 21-31 [facility] Comment on above: Performed By: #### L [id number] ####[facility] ([facility])[address] [place] [address] Creatinine [Mass/Vol] 1.31 mg/dL High 0.70-1.30 [facility] Comment on above: Performed By: #### L [id number] ####[facility] [place] [address] GLOMERULAR FILTRATION RATE ML/MIN/1.73 SQ M.PREDICTED 55.7 mL/min/1.73m*2 Low >60.0 [facility] Comment on above: Result Comment: The [facility]???s estimated glomerular filtration rate (eGFR) will no [...] AB15 ####[facility] ([facility] [place] [place] [address] Glucose [Mass/Vol] 154 mg/dL High 70-100 [facility] Comment on above: Performed By: #### L [id number] ####[facility] ([facility] [place] [address] Potassium [Moles/Vol] 3.6 mmol/L Normal 3.5-5.1 [facility] Comment on above: Performed By: #### L [id number] ####[facility] ([facility] [place] [address] Sodium [Moles/Vol] 137 mmol/L Normal 136-145 [facility] Comment on above: Performed By: #### L [id number] ####[facility] [place] [address] Urea nitrogen [Mass/Vol] 30 mg/dL High 7-25 [facility] Comment on above: Performed By: #### L [id number] ####[facility] [place] [address] UREA NITROGEN/CREATININE (MASS RATIO) IN SER/PLAS 22.9 Normal [facility] Comment on above: Performed By: #### L [id number] ####[facility] [place] [address] CBCon 01-27-2024 Erythrocyte distribution width (RBC) [Ratio] 14.5 % Normal 11.5-15.0 [facility] Comment on above: Performed By: #### L [id number] ####[facility] ([facility] [place] [address] ERYTHROCYTE MEAN CORPUSCULAR HEMOGLOBIN CONCENTRATION (G/DL) BY AUTOMATED 32.2 g/dL Normal 32.0-35.0 [facility] Comment on above: Performed By: #### L [id number] ####[facility] ([facility] [place] [address] Hematocrit (Bld) [Volume fraction] 31.4 % Low 39.0-55.0 [facility] Comment on above: Performed By: #### L [id number] ####[facility] ([facility] [place] [address] Hemoglobin (Bld) [Mass/Vol] 10.1 g/dL Low 13.0-17.0 [facility] Comment on above: Performed By: #### L [id number] ####[facility] ([facility] [place] [address] MCH (RBC) [Entitic mass] 29.0 pg Normal 27.0-33.0 [facility] Comment on above: Performed By: #### L [id number] ####[facility] ([facility] [place] [address] MCV (RBC) [Entitic vol] 90.2 fL Normal 82.0-98.0 [facility] Comment on above: Performed By: #### L [id number] ####[facility] ([facility] [place] [address] PLATELETS (10*3/UL) IN BLOOD AUTOMATED COUNT 134 10*3/uL Low 150-400 [facility] Comment on above: Performed By: #### L [id number] ####[facility] ([facility])[address] [place] [address] RBC (Bld) [#/Vol] 3.48 10*6/uL Low 4.20-5.70 [facility] Comment on above: Performed By: #### L [id number] ####[facility] ([facility])[address] [place] [address] WBC (Bld) [#/Vol] 8.70 10*3/uL Normal 4.00-10.60 [facility] Comment on above: Performed By: #### L [id number] ####[facility] ([facility])[address] [place] [address] MAGNESIUMon 01-27-2024 Magnesium [Mass/Vol] 2.0 mg/dL Normal 1.9-2.7 [facility] Comment on above: Performed By: #### L [id number] #### [facility] ([facility]) [address] [place] [address] NURSNOTEon 01-27-2024 NURSNOTE Patient Name: Tito Goncalves [...] voiced no concerns at this time. The content writer urged the primary RN to call the rapid team if any concerns arise overnight. Vic Euceda, RN Rapid Response Team Nurse [phone] 01/27/2024 9:04 PM Normal [facility] NURSNOTE Patient Name: Tito Goncalves : 1945 Primary Care Physician: Augustine Metz MD Admission Date: 01/24/2024 RAPID RESPONSE TEAM ICU TRANSFER FOLLOW-UP NOTE SUBJECTIVE / OBJECTIVE: Follow-up for previous transfer out of the ICU notification for 01/26/2024 at 1627. ASSESSMENT / INTERVENTIONS: Recent Vital Signs: Vitals: 01/26/24 19401/26/24204901/27/24 0420 01/27/24 0800 BP: 99/62 107/59 117/62 [...] time. Vital signs are stable via cardiac cath lab manager and daily lab values are unremarkable. If emergent concerns arise, please call rapid response team. Dominga Millard RN Rapid Response Team Nurse [phone] 01/27/2024 12:15 PM Normal [facility] PHOSPHORUSon 01-27-2024 Magnesium [Mass/Vol] 2.2 mg/dL Low 2.5-5.0 [facility] Comment on above: Performed By: #### L [id number] #### [facility] ([facility]) [address] [place] [address] POCT GLUCOSE METER UNSOLICIT ED RESULTSon 01-27-2024 Glucose [Mass/Vol] 206 mg/dL High 70-105 [facility] Comment on above: Order Comment: Waive d Testing in the ED is performed under the ED CLIA certificate #[id number]. Result Comment: [email or web address] Performed By: #### L [id number] #### [facility] ([facility]) [address] [place] [address] Glucose [Mass/Vol] 187 mg/dL High 70-105 [facility] Comment on above: Order Comment: Waive d Testing in the ED is performed under the ED CLIA certificate #[id number]. Result Comment: [email or web address] Performed By: #### L [id number] #### [facility] ([facility]) [address] [place] [address] Glucose [Mass/Vol] 223 mg/dL High 70-105 [facility] Comment on above: Order Comment: Waive d Testing in the ED is performed under the ED CLIA certificate #[id number]. Result Comment: [email or web address] Performed By: #### L [id number] #### [facility] ([facility]) [address] [facility] [place] [address] Glucose [Mass/Vol] 160 mg/dL High 70-105 [facility] Comment on above: Order Comment: Waive d Testing in the ED is performed under the ED CLIA certificate #[id number]. Result Comment: [email or web address] Performed By: #### L [id number] #### [facility] ([facility]) [address] [place] [address] 30on 01-26-2024 30 Daily Case Managemen t [...] soup Fruit cup Diet coke Tilapia (plain) [place] cake 01/26/24 1246 01/26/24 1246 Regular Diet Diabetic Male (carb 60g/meal) Diet effective now Question Answer Comment Room Service? Yes Carbohydrate restriction: Diabetic Male (carb 60g/meal) 01/26/24 1246 01/25/24 1713 Special Kitchen Request Once Comments: Roast beef, mashed pot., diet sprite, cookie 01/25/24 171 Physician Expected Discharge Date: Discharge Delays: PT [...] Answer: eval and treat 01/26/24 1241 Normal [facility] BASIC METABOLIC PANELon 05-0 Anion gap [Moles/Vol] 12 mmol/L Normal 7-20 [facility] Comment on above: Performed By: #### L [id number] #### [facility] ([facility]) [address] [place] [address] Calcium [Mass/Vol] 7.6 mg/dL Low 8.6-10.3 [facility] Comment on above: Performed By: #### L [id number] #### [facility] ([facility]) [address] [place] [address] Chloride [Moles/Vol] 109 mmol/L High 98-107 [facility] Comment on above: Performed By: #### L [id number] #### [facility] ([facility]) [address] [place] [address] CO2 [Moles/Vol] 21 mmol/L Normal 21-31 [facility] Comment on above: Performed By: #### L [id number] #### [facility] ([facility]) [address] [place] [address] Creatinine [Mass/Vol] 1.62 mg/dL High 0.70-1.30 [facility] Comment on above: Performed By: #### L [id number] #### [facility] [address] [place] [address] GLOMERULAR FILTRATION RATE ML/MIN/1.73 SQ M.PREDICTED 43.2 mL/min/1.73m*2 Low >60.0 [facility] Comment on above: Result Comment: The [facility]???s estimated glomerular filtration rate (eGFR) will no [...] group of individuals. Performed By: #### L [id number] #### [facility] ([facility]) [address] [place] [address] Glucose [Mass/Vol] 152 mg/dL High 70-100 [facility] Comment on above: Performed By: #### L [id number] #### [facility] ([facility]) [address] [place] [address] Potassium [Moles/Vol] 3.9 mmol/L Normal 3.5-5.1 [facility] Comment on above: Performed By: #### L [id number] #### [facility] ([facility]) [address] [place] [address] Sodium [Moles/Vol] 138 mmol/L Normal 136-145 [facility] Comment on above: Performed By: #### L [id number] #### [facility] ([facility]) [address] [place] [address] Urea nitrogen [Mass/Vol] 37 mg/dL High 7-25 [facility] Comment on above: Performed By: #### L [id number] #### [facility] ([facility]) [address] [place] [address] UREA NITROGEN/CREATININE (MASS RATIO) IN SER/PLAS 22.8 Normal [facility] Comment on above: Performed By: #### L [id number] #### [facility] ([facility]) [address] [place] [address] CBCon 01-26-2024 Erythrocyte distribution width (RBC) [Ratio] 14.5 % Normal 11.5-15.0 [facility] Comment on above: Performed By: #### L [id number] #### [facility] [address] [place] [address] ERYTHROCYTE MEAN CORPUSCULAR HEMOGLOBIN CONCENTRATION (G/DL) BY AUTOMATED 31.9 g/dL Low 32.0-35.0 [facility] Comment on above: Performed By: #### L [id number] #### [facility] ([facility]) [address] [place] [address] Hematocrit (Bld) [Volume fraction] 33.2 % Low 39.0-55.0 [facility] Comment on above: Performed By: #### L [id number] #### [facility] ([facility]) [address] [place] [address] Hemoglobin (Bld) [Mass/Vol] 10.6 g/dL Low 13.0-17.0 [facility] Comment on above: Performed By: #### L [id number] #### [facility] ([facility]) [address] [place] [address] MCH (RBC) [Entitic mass] 29.1 pg Normal 27.0-33.0 [facility] Comment on above: Performed By: #### L [id number] #### [facility] ([facility]) [address] [place] [address] MCV (RBC) [Entitic vol] 91.2 fL Normal 82.0-98.0 [facility] Comment on above: Performed By: #### L [id number] #### [facility] ([facility]) [address] [place] [address] PLATELETS (10*3/UL) IN BLOOD AUTOMATED COUNT 123 10*3/uL Low 150-400 [facility] Comment on above: Performed By: #### L [id number] #### [facility] ([facility]) [address] [place] [address] RBC (Bld) [#/Vol] 3.64 10*6/uL Low 4.20-5.70 [facility] Comment on above: Performed By: #### L [id number] #### [facility] ([facility]) [address] [address] WBC (Bld) [#/Vol] 12.08 10*3/uL High 4.00-10.60 [facility] Comment on above: Performed By: #### L [id number] #### [facility] ([facility]) [address] [facility] [place] [address] MAGNESIUMon 01-26-2024 Magnesium [Mass/Vol] 1.9 mg/dL Normal 1.9-2.7 [facility] Comment on above: Performed By: #### L [id number] #### [facility] ([facility]) [address] [facility] [place] [address] NURSNOTEon 01-26-2024 NURSNOTE Patient Name: Tito Goncalves [...] time, but encouraged to reach out to ETCHER APPRENTICE if anything changes overnight or with any further concerns. Suleman Ortiz, RN Rapid Response Team Nurse [phone] 01/26/2024 10:20 PM Normal [facility] PHOSPHORUSon 01-26-2024 Magnesium [Mass/Vol] 3.7 mg/dL Normal 2.5-5.0 [facility] Comment on above: Performed By: #### L [id number] ####[facility] ([facility]ER)[address] [place] [address] POCT GLUCOSE METER UNSOLICIT ED RESULTSon 01-26-2024 Glucose [Mass/Vol] 163 mg/dL High 70-105 [facility] Comment on above: Order Comment: Waive d Testing in the ED is performed under the ED CLIA certificate #[id number]. Result Comment: [email or web address] Performed By: #### L [id number] #### [facility] ([facility]) [address] [place] [address] Glucose [Mass/Vol] 206 mg/dL High 70-105 [facility] Comment on above: Order Comment: Waive d Testing in the ED is performed under the ED CLIA certificate #[id number]. Result Comment: [email or web address] Performed By: #### L [id number] ####[facility] ([facility])[address] [facility] [place] [address] Glucose [Mass/Vol] 155 mg/dL High 70-105 [facility] Comment on above: Order Comment: Waive d Testing in the ED is performed under the ED CLIA certificate #[id number]. Result Comment: [email or web address] Performed By: #### L [id number] #### [facility] ([facility]) [address] [place] [address] Glucose [Mass/Vol] 150 mg/dL High 70-105 [facility] Comment on above: Order Comment: Waive d Testing in the ED is performed under the ED CLIA certificate #[id number]. Result Comment: tful [email or web address] Performed By: #### L [id number] #### [facility] ([facility]) [address] [place] [address] 30on 01-25-2024 30 Daily Case Managemen t Update Multidisciplinary rounds have been completed. Barriers to Discharge: 01/24- patient here for planned atrial appendage closure. Per morning meeting the patient fell this morning, presumably from hypotension (BP in 60s/70s). Gave patient fluids to rescusitate but was unsuccessful. Patient was started on levophed and brought to MICU. 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 Patient has pericardial drain. May need pt ot given age but would anticipate home maybe with [facility]. CB Diet: Dietary Orders (From admission, onward) Start Ordered 01/24/24 1051 Regular Diet Diabetic Male (carb 60g/meal) Diet effective now Question Answer Comment Room Service? Yes Carbohydrate restriction: Diabetic Male (carb 60g/meal) 01/24/24 1050 Physician Expected Discharge Date: 01/25/2024 Discharge Delays: PT Six Click Score: 21 OT Six Click Score: PT Recommendations: OT Recommendations: New Consults: Normal [facility] BASIC METABOLIC PANELon 05-0 Anion gap [Moles/Vol] 18 mmol/L Normal 7-20 [facility] Comment on above: Performed By: #### L [id number] ####[facility] ([facility])[address] [address] Calcium [Mass/Vol] 7.8 mg/dL Low 8.6-10.3 [facility] Comment on above: Performed By: #### L [id number] ####[facility] ([facility])[address] [employer] [place] [address] Chloride [Moles/Vol] 104 mmol/L Normal 98-107 [facility] Comment on above: Performed By: #### L [id number] ####[facility] (BEAKER)[address] [place] [address] CO2 [Moles/Vol] 20 mmol/L Low 21-31 [facility] Comment on above: Performed By: #### L [id number] ####[facility] ([facility])[address] [place] [address] Creatinine [Mass/Vol] 1.99 mg/dL High 0.70-1.30 [facility] Comment on above: Performed By: #### L [id number] ####[facility] [facility] [place] [address] GLOMERULAR FILTRATION RATE ML/MIN/1.73 SQ M.PREDICTED 33.7 mL/min/1.73m*2 Low >60.0 [facility] Comment on above: Result Comment: The [facility]???s estimated glomerular filtration rate (eGFR) will no [...] AB15 ####[facility] [place] [address] Glucose [Mass/Vol] 257 mg/dL High 70-100 [facility] Comment on above: Performed By: #### L [id number] ####[facility] (BEAKER)[address] [place] [address] Potassium [Moles/Vol] 5.0 mmol/L Normal 3.5-5.1 [facility] Comment on above: Performed By: #### L [id number] ####[facility] (BE[facility]ER)[address] [place] [address] Sodium [Moles/Vol] 137 mmol/L Normal 136-145 [facility] Comment on above: Performed By: #### L [id number] ####[facility] (BEAKER)[address] [place] [address] Urea nitrogen [Mass/Vol] 30 mg/dL High 7-25 [facility] Comment on above: Performed By: #### L [id number] ####[facility] (BEAKER)[address] [place] [address] UREA NITROGEN/CREATININE (MASS RATIO) IN SER/PLAS 15.1 [facility] Comment on above: Performed By: #### L [id number] ####[facility] (BE[facility]ER)[address] [place] [address] BLOOD CULTUREon 01-25-2024 Bacteria identified Cx Nom (Bld) No growth at 5 days Normal [facility] Comment on above: Order Comment: Waive d Testing in the ED is performed under the ED CLIA certificate #[id number]. Performed By: #### L [id number] #### [facility] [address] [place] [address] Bacteria identified Cx Nom (Bld) No growth at 5 days Normal [facility] Comment on above: Performed By: #### L [id number] #### [facility] [address] [place] [address] CBCon 01-25-2024 Erythrocyte distribution width (RBC) [Ratio] 14.1 % Normal 11.5-15.0 [facility] Comment on above: Performed By: #### L [id number] #### [facility] ([facility]) [address] [place] [address] ERYTHROCYTE MEAN CORPUSCULAR HEMOGLOBIN CONCENTRATION (G/DL) BY AUTOMATED 31.9 g/dL Low 32.0-35.0 [facility] Comment on above: Performed By: #### L [id number] #### [facility] [address] [place] [address] Hematocrit (Bld) [Volume fraction] 34.5 % Low 39.0-55.0 [facility] Comment on above: Performed By: #### L [id number] #### [facility] ([facility]) [address] [place] [address] Hemoglobin (Bld) [Mass/Vol] 11.0 g/dL Low 13.0-17.0 [facility] Comment on above: Performed By: #### L [id number] #### [facility] [address] [place] [address] MCH (RBC) [Entitic mass] 28.9 pg Normal 27.0-33.0 [facility] Comment on above: Performed By: #### L [id number] #### [facility] ([facility]) [address] [place] [address] MCV (RBC) [Entitic vol] 90.6 fL Normal 82.0-98.0 [facility] Comment on above: Performed By: #### L [id number] #### [facility] ([facility]) [address] [place] [address] PLATELETS (10*3/UL) IN BLOOD AUTOMATED COUNT 191 10*3/uL Normal 150-400 [facility] Comment on above: Performed By: #### L [id number] #### [facility] ([facility]) [address] [place] [address] RBC (Bld) [#/Vol] 3.81 10*6/uL Low 4.20-5.70 [facility] Comment on above: Performed By: #### L [id number] #### [facility] ([facility]) [address] [place] [address] WBC (Bld) [#/Vol] 13.57 10*3/uL High 4.00-10.60 [facility] Comment on above: Performed By: #### L [id number] #### [facility] ([facility]) [address] [place] [address] CONSULTon 01-25-2024 CONSULT ------ -- Attestation signed [...] Goncalves Age - 79 [facility]. - 1945 [id number] Date of Admission - 01/24/2024 10:46 AM [...] complication and patient was admitted to the [facility] for over night monitoring to [...] mL, i (more content not included)... Normal [facility] CT CERVICAL SPINE WO IV CONT RASTon [...] signed: Trenton Martinez. 9 Invalid Interpretation Code [facility] CT CHEST WO IV CONTRASTon CT CHEST [...] signed: Trenton Martinez. 5 Invalid Interpretation Code [facility] CT HEAD WO IV CONTRASTon CT HEAD WO IV CONTRAST CT HEAD WO IV CON TRAST 01/25/2024 5:34 AM SIGNS AND SYMPTOMS: Hypotension, [...] signed: Trenton Martinez. 1 Invalid Interpretation Code [facility] HPon 01-25-2024 HP H&P reviewed. The pa [...] procedure. He would like to proceed. Normal [facility] LACTIC ACID WITH 4 HOUR REFL EXon 01-25-2024 LACTATE (MMOL/L) IN SER/PLAS 2.1 mmol/L Normal 0.5-2.2 [facility] Comment on above: Performed By: #### L [id number] ####[facility] ([facility])[address] , [place] [address] LACTATE (MMOL/L) IN SER/PLAS 3.3 mmol/L Critically high 0.5-2.2 [facility] Comment on above: Performed By: #### L [id number] #### [facility] ([facility]) [address] [facility] [place] [place] [address] MAGNESIUMon 01-25-2024 Magnesium [Mass/Vol] 1.8 mg/dL Low 1.9-2.7 [facility] Comment on above: Performed By: #### L [id number] ####[facility] ([facility])[address] [place] [address] POCT GLUCOSE METER UNSOLICIT ED RESULTSon 01-25-2024 Glucose [Mass/Vol] 164 mg/dL High 70-105 [facility] Comment on above: Order Comment: Waive d Testing in the ED is performed under the ED CLIA certificate #[id number]. Result Comment: tful ks2 Performed By: #### L [id number] #### [facility] ([facility]) [address] [facility] [place] [address] Glucose [Mass/Vol] 134 mg/dL High 70-105 [facility] Comment on above: Order Comment: Waive d Testing in the ED is performed under the ED CLIA certificate #[id number]. Result Comment: amur tad Performed By: #### L [id number] #### [facility] ([facility]) [address] [facility] [place] [address] Glucose [Mass/Vol] 167 mg/dL High 70-105 [facility] Comment on above: Order Comment: Waive d Testing in the ED is performed under the ED CLIA certificate #[id number]. Result Comment: amur tad Performed By: #### L [id number] #### [facility] ([facility]) [address] [place] [address] Glucose [Mass/Vol] 208 mg/dL High 70-105 [facility] Comment on above: Order Comment: Waive d Testing in the ED is performed under the ED CLIA certificate #[id number]. Result Comment: amur tad Performed By: #### L [id number] ####[facility] (BEAKER)[address] [place] [address] Glucose [Mass/Vol] 270 mg/dL High 70-105 [facility] Comment on above: Order Comment: Waive d Testing in the ED is performed under the ED CLIA certificate #[id number]. Result Comment: nbow en Performed By: #### L [id number] #### [facility] ([facility]) [address] [place] [address] PROCALCITONIN TESTon 024 PROCALCITONIN IN BLOOD 0.05 ng/mL Normal 0.00-0.10 [facility] Comment on above: Result [...] and initial PCT<0.5ng/mL Performed By: #### L [id number] #### [facility] (BEAKER) [address] [place] [address] PROTIME-INRon 01-25-2024 INR IN PPP BY COAGULATION ASSAY 1.24 High 0.90-1.10 [facility] Comment on above: Result Comment: ACCC P [...] RANGE. CHEST 1995;[id number]. Performed By: #### L [id number] #### [facility] (BEAKER) [address] [place] [address] PROTHROMBIN TIME (PT) IN PPP BY COAGULATION ASSAY 15.7 Seconds High 12.3-14.8 [facility] Comment on above: Performed By: #### L [id number] #### [facility] (BEAKER) [address] [place] [address] TROPONIN Ion 01-25-2024 Troponin I.cardiac [Mass/Vol] 0.84 ng/mL Critically high 0.00-0.04 [facility] Comment on above: Performed By: #### L [id number] ####[facility] (BE[facility]ER)[address] [place] [address] 30on 01-23-2023 30 The patient is Moder ately Stable [...] and maintained or improved Outcome: Progressing Normal [facility] BASIC METABOLIC PANELon 12-27 Anion gap [Moles/Vol] 13 mmol/L Normal 7-20 [facility] Comment on above: Performed By: #### L [id number] ####[facility] (BEAKER)[address] [place] [address] Calcium [Mass/Vol] 8.8 mg/dL Normal 8.6-10.3 [facility] Comment on above: Performed By: #### L [id number] ####[facility] (BEAKER)[address] [place] [address] Chloride [Moles/Vol] 103 mmol/L Normal 98-107 [facility] Comment on above: Performed By: #### L [id number] ####[facility] (BEAKER)[address] [place] [address] CO2 [Moles/Vol] 25 mmol/L Normal 21-31 [facility] Comment on above: Performed By: #### L [id number] ####[facility] (BEAKER)[address] [place] [address] Creatinine [Mass/Vol] 1.26 mg/dL Normal 0.70-1.30 [facility] Comment on above: Performed By: #### L [id number] ####[facility] (BEAKER)[address] [place] [address] GLOMERULAR FILTRATION RATE ML/MIN/1.73 SQ M.PREDICTED 58.4 mL/min/1.73m*2 Low >60.0 [facility] Comment on above: Result Comment: The [facility]???s estimated glomerular filtration rate (eGFR) will no [...] [id number] ####[facility] ([facility] [place] [place] [address] Glucose [Mass/Vol] 184 mg/dL High 70-100 [facility] Comment on above: Performed By: #### L [id number] ####[facility] ([facility] [place])[address] [place] [address] Potassium [Moles/Vol] 4.3 mmol/L Normal 3.5-5.1 [facility] Comment on above: Performed By: #### L [id number] ####[facility] ([facility] [place])[address] [place] [address] Sodium [Moles/Vol] 137 mmol/L Normal 136-145 [facility] Comment on above: Performed By: #### L [id number] ####[facility] ([facility] [place])[address] [place] [address] Urea nitrogen [Mass/Vol] 21 mg/dL Normal 7-25 [facility] Comment on above: Performed By: #### L [id number] ####[facility] ([facility] [place])[address] [place] [address] UREA NITROGEN/CREATININE (MASS RATIO) IN SER/PLAS 16.7 Normal [facility] Comment on above: Performed By: #### L [id number] ####[facility] ([facility] [place])[address] [place] [address] HPon 04-30-2024 History Of Present Nori Goncalves is a [...] In April 2019 he presented to the [facility] with atrial fibrillation with controlled ventricular [...] cardiac remod (more content not included)... Normal [facility] MRSA/MSSA DNA NASALon 2023 MRSA DNA Negative Normal Negative [facility] Comment on above: Order Comment: Testi ng [...] preclude nasal colonization. Performed By: #### L [id number] ####[facility] ([facility] [place])[address] [place] [address] MSSA DNA Negative Normal Negative [facility] Comment on above: Order Comment: Testi ng [...] preclude nasal colonization. Performed By: #### L [id number] ####[facility] ([facility] [place])[address] [place] [address] NURSNOTEon 01-24-2024 NURSNOTE CHG wipes completed. Normal [facility] POCT GLUCOSE METER UNSOLICIT ED RESULTSon 01-24-2024 Glucose [Mass/Vol] 146 mg/dL High 70-105 [facility] Comment on above: Order Comment: Waive d Testing in the ED is performed under the ED CLIA certificate #[id number]. Result Comment: mmah [email or web address] Performed By: #### L [id number] #### [facility] ([facility]) [address] [place] [address] TYPE AND SCREENon 01-24-2024 AB SCREEN Negative Normal [facility] Comment on above: Performed By: #### L [id number] ####[facility], ABO group Nom (Bld) A Normal [facility] Comment on above: Performed By: #### L [id number] ####[facility], RH TYPE IN BLOOD Positive Normal [facility] Comment on above: Performed By: #### L [id number] ####[facility], Basophils Auto (Bld) [#/Vol] [...] challengeon 01-18-2024 Calcium [Mass/Vol] 8.6 mg/dL 8.5-10.1 [facility] Chloride [Moles/Vol] 103 mmol/L 98-107 [facility] CO2 [Moles/Vol] 30.4 mmol/L 21.0-32.0 [facility] Creatinine [Mass/Vol] 1.44 mg/dL High 0.70-1.30 [facility] GFR/1.73 sq M.predicted MDRD (S/P/Bld) [Vol rate/Area] 58 mL/min/{1.73_m2} Low >=60 [facility] Glucose [Mass/Vol] 140 mg/dL High 74-106 [facility] Potassium [Moles/Vol] 4.5 mmol/L 3.5-5.1 [facility] Sodium [Moles/Vol] 140 mmol/L 136-145 [facility] Urea nitrogen [Mass/Vol] 17.0 mg/dL 7.0-18.0 [facility] [...] 01-18-2024 MCHC (RBC) [Mass/Vol] 31.6 g/dL 29.9-35.2 [facility] MCV Auto (RBC) [Entitic vol] [...] Eosinophils # (Auto) 0.1 10 3/uL 0.0-0.7 [facility] Immature Granulocyte # (Auto) 0.00 10 3/uL 0.00-0.03 [facility] Orders Onlyon 01-18-2024 Orders Only [id number] Amina Goncalves 1945 M Date Provider Department Center 01/18/2024 [facility] Family History Problem Relation Age of Onset Cancer Mother Heart attack Other Family Status - Relation Status Age at Mother Other Normal [facility] Platelet mean volume Auto (B ld) [Entitic vol]on 01-18-2024 Platelet mean volume (Bld) [Entitic vol] 11.4 fL 9.5-13.5 [facility] Platelets Auto (Bld) [#/Vol] on 01-18-2024 Platelets (Bld) [#/Vol] 186 10 3/uL 150-450 [facility] RBC Auto (Bld) [#/Vol]on RBC (Bld) [#/Vol] 4.13 10 6/uL Low 4.70-6.10 [facility] Serum or plasma anion gap de terminationon 01-18-2024 Anion gap [Moles/Vol] 11.1 mmol/L [facility] Prep for Procedureon 024 Prep for Procedure [id number] KapjamesEugen e R 1945 M Date Provider Department Center 11/24/2023 166MADISON HESTER Family History Problem Relation Age of Onset Cancer Mother Heart attack Other Family Status - Relation Status Age at Mother Other [facility] Optical coherence tomography study reporton 10-28-2023 [facility] Radiology Study observation (narrative) [facility] Prep for Procedureon 024 Prep for Procedure [id number] KapleEugen e R 1945 M Date Provider Department Center 10/27/2023 166MADISON HESTER Family History Problem Relation Age of Onset Cancer Mother Heart attack Other Family Status - Relation Status Age at Mother Other [facility] Orders Onlyon 10-25-2023 Orders Only [id number] MichjamesOliveren e R 1945 M Date Provider Department Center 10/25/2023 166-MADISON PAUL Family History Problem Relation Age of Onset Cancer Mother Heart attack Other Family Status - Relation Status Age at Mother Other [facility] Office Visiton 10-24-2023 Follow-up visit [id number] IvananEugen e R 1945 M Date Provider Department Center 10/24/2023 MAGGY LEBRON Family History Problem Relation Age of Onset Cancer Mother Heart attack Other Family Status - Relation Status Age at Mother Other Level of Service:54929 [place] OFFICE/OUTPATIENT ESTABLISHED LOW MDM 20 MIN [facility] Prep for Procedureon 024 Prep for Procedure [id number] Amina Goncalves james Blackman 1945 M Date Provider Department [place] 10/17/2023 MADISON MOSES Family History Problem Relation Age of Onset Cancer Mother Heart attack Other Family Status - Relation Status Age at Mother Other [facility] 36on 10-05-2023 36 Patient underwent hi s pre-LAAO JESSICA. He is a candidate for an occlusive device. Spoke to patient regarding next steps. He needs to have shared decision documentation with another physician. 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 Discussed possible procedure date of 11/01/2023. He states he would consider this and would further discuss with his daughter. Of note, he is planning a trip to [place] for 1 month mid October and he will return the end of November. [facility] Telephoneon 10-05-2023 Telephone [id number] Amina Goncalves james Blackman 1945 Date [facility] Department [place] 10/05/2023 MADISON MOSES Family History Problem Relation Age of Onset Cancer Mother Heart attack Other Family Status - Relation Status Age at Mother Other [facility] Eric 09-16-2023 ANES ------ -- Attestation signed [...] 0900 Procedure: TRANSESOPHAGEAL ECHO (JESSICA) Location: [facility] Vascular Lab Clinical information reviewed: [facility] Meds Physical Exam Airway Mallampati: II Cardiovascular Rhythm: regular Rate: normal Dental Pulmonary Breath sounds clear to auscultation Abdominal Anesthesia Plan ASA 3 other (Moderate sedation) Anesthetic plan and risks discussed with patient. Use of blood products discussed with patient who. Plan discussed with fellow and attending. Additional Equipment Requests [facility] HPon 09-16-2023 HP ------ -- [...] there are no changes to the H&P. [facility] NURSNOTEon 09-16-2023 NURSNOTE RN educated pt on d/ c instructions. RN encouraged pt to voice any questions or concerns. Pt verbalizes no questions or concerns at this time. Normal [facility] NURSNOTE Bedside swallow stud y completed and passed. Normal [facility] Telephoneon 09-15-2023 Telephone [id number] Amina Goncalves 1945 M Date Provider Department Center 09/15/2023 [facility] [place] HeartVAS Family History Problem Relation Age of Onset Cancer Mother Heart attack Other Family Status - Relation Status Age at Mother Other Normal [facility] HPon 09-06-2023 [facility] Cardiology - [facility] Subjective Tito Goncalves is a 78 y.o. year old male patient being seen to discuss LAAO. He presented to [facility] ED in Jun 2023 for fall. He is anticoagulated with warfarin for afib. Back in December 2022 he had brain bleed s/p fall. Was treated at [facility]. He denies chest pain, SOB, and [...] In April 2019 he presented to the [facility] with atrial fibrillation with controlled ventricular [...] Take 1 tablet (more content not included)... [facility] Office Visiton 09-06-2023 Follow-up visit [id number] Amina Goncalves 1945 M Date Provider Department [place] 09/06/2023 OLIVER RUELAS TIMO Santiago Family History Problem Relation Age of Onset Cancer Mother Heart attack Other Family Status - Relation Status Age at Mother Other Level of Service:78362 [place] OFFICE/OUTPATIENT ESTABLISHED HIGH MDM 40-54 MIN [facility] Coding Summaryon 07-11-2023 Coding Summary HTMLBase 64 HcyogyozEGz9lBz+PGhlYWQ+PE 5RKVHyT36vzCAnuE6tK8RXZJjT YeuoYDQEBToNCkDmbsIvTS8rxE NjZXJu IC8+CK4wLLJgUtporBIkb8L7wC S8W88zzn1eZAgniDU9SJEqGyHp vdjfa1ymjDo7IFqoSbmvMpAf KNKolO90WMK3xO02Qc11eKJwnL Jwv7nwwYa0KhEjMAWkOXB4vUtx UBwnu9FaDJSwS96sfDVoh2H5 AQUbqOlgnABcLoNigBU9bT0yQQ kbetzvc1pemncnLfz4kr83jABa h1M9tFQ5I2NwytR9MVKjfHMt XhuqvVJOyS3ikkurj3gvcakdRx CpGPNjDNq2JPv6OGBydBchMrMx ZI96FCK5KFPlwlKqR0XzKXQj aRrzOgX3q7P9Qq6UH1ZGXrdtM6 VNTUFSWTwvdGQ+YT32cn07S8Cn RqayOho2JIQuHCC2lXY1hF6a XSJwJEnab2U6tPI1V6WeztJogr 9nz1ipPXHoZIewQ89niODne1I5 DVIvrYQ8BMXglFnyXkQaiF87 Oyc+AGEivPaop4VxCynxu9tap7 bjmMx7OzztBVRvsyTymBhrALF3 x6VzXg5yUTEgjLL9tKQ3sP1w PdMlGfS7KEcgT439ArPozEMvEq jgQ87xL6OyiUA+CPWtMou6CLPn lRdyTZ3gG5XiYCDoeketsZLt yIxgIP9xAGZjuctxWLCbmF7fPQ FrF2r9WiKsUqS3DFsoH2GoSXPi dkciQq65aO0wAxZyQeC4FMww H7ExeaD0DRRzfCSgDBdyOSQ1E0 9fd6Q8AKDuIKPpMME2wCR1jE0e bGlnbjogbGVmdDsgdmVydGlj SVueOSmmZ577MTSluUukKtHjOL luZyBEYXRlOiAgMTAvMTYvMjAy MzwvdGQ+FZRbGZV4sCeiOREi xRMdFFznPu7ghSoepVtaQR9pUF YcyvdsONBkaQ5gFZVchKExwWsg XN7tDXNcewyip638WpHeYYY1 BVGtkXFqV6WopL5lLpBiXUReCG VmJ0XmgYBfAImiU617UNaeGsR5 PIAyiyAkN9GhUEWmjTfgRbM7 j2O1Tc8Cy1TglwowS0FbtENzLa ShIgdqMLf4J7HqNtfpsNF+PC90 YMYeVO37EQb6DJO1oBggPDii RUPbH9YstY4gKhEgYQEdYWWfZk c+PHRhYmxlIHdpZHRoPScxMDAl CcAvhZqpRE9rJi9xOPWtBXDp aNpmbMPvRnWti3hdYTQpYVcsFD 4wwKcdA5AyqKB8YFEar2o2Zb09 R29jC8WnsWK+RWPioPC4eNG6 wK8lKeDgPiD1GIsyP896NbWipU LnPomhg3iko5vkxVm8VcO1LYKi dkEkaRasKRW5q6JhEz12T59w IHdpZHRoPSIxNSUiIHZhbGlnbj 6gpP0rIc3+YDOnxDR4pSI5rY0z XfCrMqN5PMvwB604VjNkoOGe Wynvl3ygh0spmOw4UjKcZGLsij CepNudAXV4y5PoKl62W4OxkGqh n7GdZrt3ju54lNSjr8P0wTA8 L7WjTUQepblfvZRgeRfvMD8yYB OnwcyqOYGzaD6xQZOpO8f9YmRg MqW5HEhbD9YgdwZ1DUHesKNo VCQufLCVxG2xcckwg4qisediTp JdDLUsQCt9OMo5ELKtpVgyPxQg LET5XhG1MWP5vWZqbV2yrOdm rkxzzE7lJmp+HRL0yGAmdFGZAQ 1lOjwvdGQ+UPFnNUQ8yZycCUdi BSFsuY4lJOQnM9l0RzThDeC6 LEjuD6MluxH3JFImyTXfHHKzpG CImJ6wjavlk1xdgkydWiKtDIIa NOg5FHd0MJHvuMotNsLrWXQ9 QcA5QZL2wZFobY6gwStziejrkG 9wOyc+BfjhxSeoGCE4NTc7L2Ue Bsy2ODIrpAoeBW6jmABkCUks Gy7rcVsblFmuHQ0dJLVzmjskm8 57ZvRrn6agFFClpMLiERlpKKK6 L96au0X4RIYeNTChCJH5qAP7 pO4dxHlkirngoHIymLjemgYhuU ybZBaaDYxrV853XDSzfOivQmEc XVv2P2NxDqr3MUSdeGksEK3p jYRnUDtvBs9oyLfgwVnrES8fQG Ppsabvx567PdQti6jxBLPqnCHq WWmdRNB4H82fi6Z1BOMiLSNc LFS7vET2gN3wcEqatekrpOEieG fxrhZieBtfHLnlEUkcL507JNJg oLdcXxNctQc7E3OyGlp1ZQBb zOdvPX5llXBdQSuqGd5rqVjmwL ifDA7qAISrrmpyq042OyMxv9kz EVWndVBySIslMCC9E01lw3W1 XBPaREDjCFF2vGK4vL4jwDepsr ogbGVmdDsgdmVydGljYWwtYWxp W053JCVkxPqqAjEexGhcdbGp PNdoMOy1L0DgHqbcdHF+PC90YW WuOS97oLLjwFKku0rpwVn7LvOs IIFdCKE5sRuaAWpjt0NoGKPk L63yoJLaq2W0UCYzkMazfNRoQi TegXS2oQ2lCNioeqfqh8erbduf Ecimn3inyn85oI17K02mIZsh RHVfWSFbXWIaAJYfjVxkjp6arU 9wIi8+AHQgaBI3vCW6zA5sYJLi XrH2FEfbE824QnYdcAUcNpwh q0hqu3uztJd7VzH2RXZldtDahN paRJN6q9KiBt72C69zLSsxPMEn NKIaEKImRODbjBqgzv9gaP8n Ii8+KPPylIH2wFI4qS4cGiRkGv E5URlfA661DlXgdBNlBsutL48d F1AczZD+APBxCfa6WJAktScd RK8wvYUlXNftEh5oZWB5OyRbPy QmLQyjI6HbZQGyrmdyzyegrTZ5 JWZqAIResZ37Hw1mwSfzCKTb uLEBmA3xdemlh9ghctdkYdVsRT NjXNc5QVw7ZFSveLkpWkMvBIY1 DjH4MFQ5uUPjpP6ftKtijqvm jM0iT1KlHZGtgpedJd62qI6uGz FfRjT2ZAnyOcj+R9RVXYQoUUXJ I8EDDUOQLZYOYVGSMZ72HM09 gNQxk4U5vEJ9V9ElBOEyxnfuek dmqAI3CNHuSSXozM09nVIhVKxp Uk6wj8C0b592EXZxOXApuA26 Ta1ddIbtRZCqdXJYkX8dicohj3 cpgfuzZnGxXPBsWEd0RLv5YGHe oSzaDzStWLY9KlX6GGF9xFCa jT4tzJebgdddlD7uEes+MDQvMj yxFHy4AxljeAQ+PBAiJNB2bJpr OFusIBDfyT5jWNXjF0c6RnOj ZvO0WQvmG1RuLTGaedvpAk79sM 8fDeUdSaG1YAhqN3ScxoS0HLVc qQXpMFyfCEH9R15wb5O9ASMd BOScYZG3eFJ1hX9ppJyjjpzwlP ZsbKszqbFufQunKTywVFcwV666 TSAlqWeeVjq3XOtkAYFqIC29 HT22vKSkm7H3uBM5F1KjQYPzdn pavwotzZZ8KTMlISQffQ31rHVh EXslSw9tc3Y2p796ZEXmAEZy sL25Su7wuGnmLMQqxDSOhA6rzt npo3eiweptVdDrARPaWRs6HHb8 JAWkxYzfZkKuTSJ9BoB1MFI5 aRPpqA4xhNxhitkczF4cNrk+TU FMRTwvdGQ+ASJkVNK0eEyaZRvf VQOfmV5lUNVxF2b0JeIaMgE2 IKeoB8VuDGKsyhfrRt34tI8gXa GiXmB3KGwqO9QpkpI1WDCepIOa CTjgBBV8I45ve3E8WHNkWRPl PNM4bCE2zX0pcEiwbonauYUjhQ tsjpSsmUiiWLhsOBzsN582PIDj qUndOyWjIRKjLS7lfMqqiOI+ BY76sy33Q0QjAbukNef3PDJeSJ M2mZA0yP4vFMNrDBngf0R6eME8 R0LnmkNsee2zz2tuCQCdYMus Y91crOMxk9Z5OBQebGH7UVZjiS enLiIizB98Ppl+CYTknOnlo0Mq Ngdns2djg1iatOu7UcKkXYFz gnSxaIfjUCS5p2GuGo83L91mDP eeHCNqNWDaGKBrKSAxaDqqhj6q kC3hCk4+MWQfhQY4oAC5aE6w TvRsJaB2KFytH887GaMetAIcJt bur7qkh2qnyVo0MoEvYHQcgaUp bDfsLJZ9j9KiIc55T0KvsJge a6UdSta6if40kEShc7N6mED3Y4 NbDORnxwfclTGfqDwuML2eQVSw zhubMNLnmQ1nUZPxC5l3CdKd YnM9LMcdG1CsrtB5QQGylYAsQI TyaBXKuY0kkabvo9vswqokQnAo CYNqIHi0CFu8HRDfrSrxAiMa AZR4LyR7XUH8jHGjpZ2ycWlbmr xzjR6tMqk+JXs5c3pbrRTfIQ1r uFA1NS26BT43fGHcl9G1qWC7 M8CmVHWzqhhenoreqRI0FVBwCC RybQ85Ke2cbHrsZd8tQAYiJWV7 OSXgjSOlV2IkgL6kWgZhOCRp WAQoA1SuqCEpUOviO331QNtsKc L7DBFjffPeG8HjBLEzlDdwQgG4 v2F7Si9PBY99EW35BN60wWMp f5G9rSB7Z5EoOBHghdsfwwyqoB B0WTUuOXGhdT87Li3kdTzsYe6d ZNFzCBY3HFKjbDKrF6ZswB8c YzNlJDXzZQZoF6DntPFiQRtdE9 91QOplVqX5WLMfczMiP2NjWMYh wNqiGqP6p6M4Pw1XBa11HW31 TN81mPCnw9A8uFF4H3YlVJIzik lupnlzvOV7AYUgINSirS96Qu0y sUtnVb3zJOOtECN3RBBkaFUo N1TvuV7dRpAsTBZkUSVmM8UoqB TkAPioE386OSvcLvW3WCPcfaIe V6PvIMDhwZcwQpB0z9H3Ie2Z CFtkkgz0N9UfClsclJA+PC90YW MlHT44bDTelEKxw1ujgXv3OdKj WYZvDFX0uDxmQEiul6FxUYQb Y29 (more content not included)... Normal [facility] ED Clinical Summaryon 2022 ED Clinical Summary [facility] - Emergency Department [address] [place] [address] [id number] ED Clinical Summary PERSON INFORMATION Name: TITO GONCALVES Age: 78 Years Sex: MALE : 1945 MRN: Acct#: Visit Reason: Eye Injury; Fall; FALL/LT EYE LAC Arrival: 07/05/2023 16:48:26 Discharge: 07/05/2023 18:40:00 LOS: 000 01:52 Check In: 07/05/2023 16:48:26 Checkout:07/05/2023 18:40:00 Address: [facility] [employer] [facility] [address] PCP: Augustine Metz PROVIDER INFORMATION Provider Role [...] Patient/family/caregiver verbalizes understanding of instructions given Comment: [facility] ED Patient Education Noteon 07-05-2023 ED Patient Education Note Education Materials [facility] ED Patient Summaryon 023 ED Patient Summary [facility] - Emergency Department [address] [place], [place] [id number] PATIENT DISCHARGE INSTRUCTIONS Patient Information Name: TITO GONCALVES Age: 78 Years Date of : 1945 Reason For Visit: Eye Injury; Fall; FALL/LT EYE LAC Arrival Time: 07/05/2023 16:48:26 Primary Care Physician: Augustine Metz Attending Physician: Colin Song DO Comment: Visit Diagnosis: Diagnoses This Visit Eye Injury ([id number]) Fall ([id number]) The Pharmacy at [facility] is open Tuesday through Tuesday [...] alcohol and/or drug addiction problems; contact the [facility] 18/04 Crisis Hotline -Text 4HOPE to 992459. If you received any narcotics, sedation, or [...] and treatment you received today in the [facility] Emergency Department were for an urgent problem and are not intended as complete care. It is important for you to follow up with a doctor, nurse practitioner, or physician?s costumer assistant for ongoing care. If your symptoms [...] so we can reach you if necessary. [facility] Emergency Department has provided you with a complete list of medications post discharge. Please inform your restaurant inspector/provider of your visit and for further instruction [...] relieve symptom (more content not included)... Normal [facility] Phone Msgon 02-01-2023 Phone Msg - From: Lori Cintron MA Sent: 02/01/2023 08:59:25 EDT Caller Name: TITO GONCALVESChintan Caller Number: H Found CD of a CT scan for pt in fax folder for Dr. Angelo's team. Called pt to see if he wanted it back. Pt to speak with his dtr and see if we should hold it at office, send to him or destroy. Patient called and states he would like the CD mailed to his address on file. Normal [facility] CBC AUTO DIFFon 2023 BASO # 0.0 103/ul Normal 0.0-0.1 [facility] Comment on above: Performed By: #### C BC #### [facility] [address] [address] [address] Arjun Menjivar Basophils/100 WBC (Bld) 0.4 % Normal 0.2-2.0 [facility] Comment on above: Performed By: #### C BC #### [facility] [address] [place] [address] Dr. Arjun Menjivar EO # 0.1 103/ul Normal 0.0-0.7 [facility] Comment on above: Performed By: #### C BC #### [facility] [address] [address] [address] Arjun Menjivar Eosinophils/100 WBC (Bld) 1.5 % Normal 0.9-7.0 [facility] Comment on above: Performed By: #### C BC #### [facility] [address] [place] [address] Dr. Arjun Menjivar Erythrocyte distribution width (RBC) [Ratio] 13.7 % Normal 11.0-15.0 [facility] Comment on above: Performed By: #### C BC #### [facility] [address] [address] [address] Arjun Menjivar Hematocrit (Bld) [Volume fraction] 41.9 % Critically low 42.0-54.0 [facility] Comment on above: Performed By: #### C BC #### [facility] [address] [place] [address] Dr. Arjun Menjivar Hemoglobin (Bld) [Mass/Vol] 13.7 g/dL Critically low 14.0-18.0 [facility] Comment on above: Performed By: #### C BC #### [facility] [address] [place] [address] Dr. Arjun Menjivar IG # 0.02 10e3/ul Normal 0.00-0.03 [facility] Comment on above: Performed By: #### C BC #### [facility] [address] [place] [address] Dr. Arjun Menjivar IG % 0.3 % Normal 0.0-0.5 [facility] Comment on above: Performed By: #### C BC #### [facility] [address] [place] [address] Dr. Arjun Menjivar LYMPH # 1.4 103/ul Normal 1.2-3.8 [facility] Comment on above: Performed By: #### C BC #### [facility] [address] [place] [address] Dr. Arjun Menjivar Lymphocytes/100 WBC (Bld) 16.9 % Critically low 20.5-60.0 [facility] Comment on above: Performed By: #### C BC #### [facility] [address] [place] [address] Dr. Arjun Menjivar MANUAL DIFF REQ NO Normal [facility] Comment on above: Performed By: #### C BC #### [facility] [address] [place] [address] Dr. Arjun Menjivar MCH (RBC) [Entitic mass] 28.8 pg Normal 25.9-34.0 [facility] Comment on above: Performed By: #### C BC #### [facility] [address] [place] [address] Dr. Arjun Menjivar MCHC (RBC) [Mass/Vol] 32.7 g/dL Normal 29.9-35.2 [facility] Comment on above: Performed By: #### C BC #### [facility] [address] [place] [address] Dr. Arjun Menjivar MCV (RBC) [Entitic vol] 88.2 fL Normal 80.0-94.0 [facility] Comment on above: Performed By: #### C BC #### [facility] [address] [place] [address] Dr. Arjun Menjivar MONO # 0.5 103/ul Normal 0.3-0.8 [facility] Comment on above: Performed By: #### C BC #### [facility] [address] [place] [address] Dr. Arjun Menjivar Monocytes/100 WBC (Bld) 5.9 % Normal 1.7-12.0 [facility] Comment on above: Performed By: #### C BC #### [facility] [address] [place] [address] Dr. Arjun Menjivar NEUT # 6.0 103/ul Normal 1.4-6.5 [facility] Comment on above: Performed By: #### C BC #### [facility] [address] [place] [address] Dr. Arjun Menjivar Neutrophils/100 WBC (Bld) 75.0 % Normal 43.0-75.0 [facility] Comment on above: Performed By: #### C BC #### [facility] [address] [place] [address] Dr. Arjun Menjivar Platelet mean volume (Bld) [Entitic vol] 11.4 fL Normal 9.5-13.5 [facility] Comment on above: Performed By: #### C BC #### [facility] [address] [place] [address] Dr. Arjun Menjivar PLT 169 103/ul Normal 150-450 [facility] Comment on above: Performed By: #### C BC #### [facility] [address] [place] [address] Dr. Arjun Menjivar RBC 4.75 106/ul Normal 4.70-6.10 [facility] Comment on above: Performed By: #### C BC #### [facility] [address] [place] [address] Dr. Arjun Menjivar WBC 8.0 103/ul Normal 4.0-11.0 [facility] Comment on above: Performed By: #### C BC #### [facility] [address] [place] [address] CSPINE WO CONon [...] SALINA ESPINOZA Date: 2023 16:25 Normal [facility] CT HEAD WO CONon 2023 CT [...] TOSHIA ANDRES Date: 2023 21:30 Normal [facility] PROF 14(COMP METB)on 023 Albumin [Mass/Vol] 3.7 g/dL Normal 3.4-5.0 [facility] Comment on above: Performed By: #### C MP ####[facility] [id number] [place] [address]Dr. Arjun Menjivar Albumin/Globulin [Mass ratio] 1.1 {ratio} Normal [facility] Comment on above: Performed By: #### C MP ####[facility] [id number] [place] [id number]. Arjun Menjivar ALP [Catalytic activity/Vol] 87 U/L Normal 46-116 [facility] Comment on above: Performed By: #### C MP ####[facility] [id number] [place] [id number]. Arjun Menjivar ALT [Catalytic activity/Vol] 26 U/L Normal 16-63 [facility] Comment on above: Performed By: #### C MP ####[facility] [id number] [place] [id number]. Arjun Menjivar Anion gap [Moles/Vol] 9.2 mmol/L Normal [facility] Comment on above: Performed By: #### C MP ####[facility] [id number] [place] [id number]. Arjun Menjivar AST [Catalytic activity/Vol] 20 U/L Normal 15-37 [facility] [facility] Comment on above: Performed By: #### C MP ####[facility] [address] [place] [id number]. Arjun Menjivar Bilirubin [Mass/Vol] 0.4 mg/dL Normal 0.2-1.0 [facility] Comment on above: Performed By: #### C MP ####[facility] [address] [place] [address]Dr. Arjun Menjivar Calcium [Mass/Vol] 9.1 mg/dL Normal 8.5-10.1 [facility] Comment on above: Performed By: #### C MP ####[facility] [address] [place] [address]Dr. Arjun Menjivar Chloride [Moles/Vol] 105 mmol/L Normal 98-107 [facility] Comment on above: Performed By: #### C MP ####[facility] [address] [place] [address]Dr. Arjun Menjivar CO2 [Moles/Vol] 28.9 mmol/L Normal 21.0-32.0 [facility] Comment on above: Performed By: #### C MP ####[facility] [address] [place] [address]Dr. Arjun Menjivar Creatinine [Mass/Vol] 1.23 mg/dL Normal 0.70-1.30 [facility] Comment on above: Performed By: #### C MP ####[facility] [address] [place] [address]Dr. Arjun Menjivar EGFR-AF BELGIAN >60 Normal >=60 [facility] Comment on above: Performed By: #### C MP ####[facility] [address] [place] [address]Dr. Arjun Menjivar EGFR-NON AF BELGIAN 57 mL/min/1.73m2 Critically low >=60 [facility] Comment on above: Performed By: #### C MP ####[facility] [address] [place] [address]Dr. Arjun Menjivar Globulin (S) [Mass/Vol] 3.4 g/dL Normal [facility] Comment on above: Performed By: #### C MP ####[facility] [address] [place] [address]Dr. Arjun Menjivar Glucose [Mass/Vol] 126 mg/dL Critically high 74-106 [facility] Comment on above: Performed By: #### C MP ####[facility] [address] [place] [address]Dr. Arjun Menjivar Potassium [Moles/Vol] 4.1 mmol/L Normal 3.5-5.1 [facility] Comment on above: Performed By: #### C MP ####[facility] [address] [place] [address]Dr. Arjun Menjivar Protein [Mass/Vol] 7.1 g/dL Normal 6.4-8.2 [facility] Comment on above: Performed By: #### C MP ####[facility] [address] [place] [address]Dr. Arjun Menjivar Sodium [Moles/Vol] 139 mmol/L Normal 136-145 [facility] Comment on above: Performed By: #### C MP ####[facility] [address] [place] [address]Dr. Arjun Menjivar Urea nitrogen [Mass/Vol] 12.0 mg/dL Normal 7.0-18.0 [facility] Comment on above: Performed By: #### C MP ####[facility] [address] [place] [address]Dr. Arjun Menjivar Urea nitrogen/Creatinine [Mass ratio] 9.8 mg/mg Normal [facility] Comment on above: Performed By: #### C MP ####[facility] [address] [place] [address]Dr. Arjun Menjivar PROTIMEon 2023 INR Coag (PPP) [Relative time] 2.90 {INR} Normal [facility] Comment on above: Performed By: #### P TT, PT ####[facility] [address] [place] [address]Dr. Arjun Menjivar INR GUIDELINES SEE BELOW Normal [facility] Comment on above: Result Comment: PIOTR RED INR: 2.0 - 3.0 CONDITIONS NOT LISTED BELOW 2.5 - 3.5 FOR PROSTHETIC HEART VALVE REPLACEMENT 2.5 - 3.5 RECURRENT THROMBOSIS Performed By: #### P TT, PT ####[facility] [address] [place], [place] [address]Dr. Arjun Menjivar PT Coag (PPP) [Time] 28.9 s Critically high 9.0-11.6 [facility] Comment on above: Performed By: #### P TT, PT ####[facility] [address] [place] [address]Dr. Arjun Menjivar PTTon 2023 aPTT Coag (Bld) [Time] 37.7 s Critically high 22.3-36. 2 [facility] Comment on above: Performed By: #### P TT, PT ####[facility] [address] [place], [place] [address]Dr. Arjun Menjivar XR PELVIS 1_2 VIEWSon 2022 [...] LINDA WANG Date: 2023 16:14 Normal [facility] XR ERCP 1 HOUR FLUOROon - XR ERCP 1 HOUR FLUORO Fluoroscopic maryam rey for ERCP 11/09/2022 6:30 AM CODING COMPLIANCE AUDITOR History: DR ORDER;OTHER REASON Tech notes: WHAT [...] by: Radha Haji MD 11/10/2022 8:01 AM CODING COMPLIANCE AUDITOR Technologist: EDITA Dictated By: RADHA HAJI MD Signed By: RADHA HAJI MD Signed Out: 11/10/22 09:01:42 Normal [facility] Anesthesiaon 11-09-2022 Anesthesia Patient: YE GONCALVES [...] Postoperative hydration status: euvolemic. Notes: Normothermia. Normal [facility] Anesthesia Patient: YE GONCALVES Age: 77 [...] release 325 mg = 1 caps, ORAL, [id number] trazodone = Desyrel 50 mg, ORAL, BID [...] available Procedure history: Endoscopic Retrograde Cholangiopancreatography (ERCP). (41543) on 11/09/2022 at 77 Years. Endoscopic Retrograde Cholangiopancreatography (ERCP). (25976) on 08/14/2021 at 76 Years. Esophagogastroduodenoscopy , flexible, transoral; with endoscopic ultrasound examination limited to the esophagus, stomach or duodenum, and adjacent structures (44387) on 07/10/2021 at 76 Years. Social History [...] palate, fauces, uvula visible). Assessment and Plan [place] Society of Anesthesiologists (ASA) physical status classification: [...] recognition software. Verbal misinterpretations may occur. Normal [facility] ENDO Initial Data VS HW Prep [...] Bettencourt RN - 11/09/2022 7:09 EST Normal [facility] ENDO Outpatient Admission Da ta-Texton 11-09-2022 [...] Home : daughter Amna Surgeon Speak with Dent Remover : Yes Voided : No Pain Level and Site : 0 Kaylyn Bettencourt RN 11/09/2022 7:09 EST Present on Admission Medical Devices : None Medical Devices for Med Administration : None Kaylyn Bettencourt RN 11/09/2022 7:09 EST Vikas Coma Eye Opening [...] Safety : Verbalizes understanding Kaylyn Bettencourt RN - 11/09/2022 7:09 EST Normal [facility] Inpatient Patient Summaryon 11-09-2022 Inpatient Patient Summary [facility] Discharge Instructions [address] [place] [address] \.br\(Patient Copy)\.br\ \.br\ \.br\Name: TITO GONCALVES Yehuda : 1945 \.br\Diagnosis: \.br\ \.br\Allergies: sulfa drugs; penicillins; iodine topical\.br\ \.br\Registration Date: 11/09/22\.br\.br\.br\ \.br\ Current Date Time: 11/09/2022 08:44:54 \.br\ \.br\Address: [facility] [facility] [address] \.br\Phone: [phone] \.br\ \.br\Primary Care Provider: \.br\Name: AUGUSTINE METZ\.br\Phone: [phone] \.br\ \.br\Thank you for choosing [facility] for your care. You are very important to us. Our goal is to demonstrate our high quality medical care and provide you with a very good patient experience.\.br\ You may receive a survey about our service. Please take the time to complete the survey and return it so we can continue to enhance our service.\.br\ Thank you again for allowing [facility] to care for your medical needs. If you have any questions about your care or follow up information please contact your doctor.\.br\.br\Follow-up Instructions\.br\.br\.br \With: Address: When: \.br\PUJA HOLBROOK [facility] [address] [address], [address] [place] [address]\.br\ Business (1) Within Call for Appointment \.br\.br\.br\.br\.br\P [...] ient education materials, if any, will display below\.br\[facility] ENDOSCOPY DEPARTMENT\.br\.br\FOLLOW UP CARE\.br\? For biopsy [...] tarry sto (more content not included)... Normal [facility] OR Nursing Record - Endoon 0 11-09-2022 OR Nursing Record - Endo OR Nursing Record - Endo Summary Primary Physician: PUJA HOLBROOK MD Finalized Date/Time: 11/09/22 08:27:34 Pt. Name: TITO GONCALVES Yehuda David/Sex: 1945 Male Med Rec #: [id number] Physician: Financial #: [id number] Pt. Type: A Room/Bed: / Admit/Disch: 11/09/22 06:11:45 - Institution: Case Times - Endo Entry 1 Patient In Room Time 11/09/22 07:43:00 Out Room Time 11/09/22 08:24:00 Anesthesia Facility Times Induction Time 11/09/22 07:48:00 Stop Time 11/09/22 08:15:00 [facility] Protocol Yes Completed Surgery Start Time 11/09/22 [...] Minnie Saavedra RN Role Performed Surgeon Primary Prescriptionist Primary Scrub Primary Time In 11/09/22 07:43:00 11/09/22 07:43:00 11/09/22 07:43:00 Time Out 11/09/22 08:24:00 11/09/22 08:24:00 11/09/22 08:24:00 Procedure ERCP(None) ERCP(None) ERCP(None) Last Modified By: Vitaly GAVIN, Martha Haider RN, Martha Barrera RN 11/09/22 08:21:41 11/09/22 08:21:41 11/09/22 08:21:41 Entry 4 Entry 5 Entry 6 Case Attendee Dena GAVIN, Josselin SPRINGER DO, JYOTI TOPETE Role Performed Prescriptionist Secondary Anesthesiologist Primary Anesthesia Asst/TRUCK SHOP MECHANIC Time In 11/09/22 07:43:00 11/09/22 07:43:00 11/09/22 [...] 08:23 Martha Haider RN 11/09/22 08:27 Normal [facility] Operative Reporton Operative Report Patient: YE GNOCALVES Age: 77 years Sex: Male : 1945 [...] Notes: Follow-up in clinic as scheduled. Normal [facility] Comment on above: Order Comment: [place] Attachment [id number] can be viewed in source system Missing Attachment [id number] can be viewed in source system Missing Attachment [id number] can be viewed in source system Missing Attachment [id number] can be viewed in source system Missing Attachment [id number] can be viewed in source system Missing Attachment [id number] can be viewed in source system Result Comment: PACU Phase I - Endoon 2022 PACU Phase I - Endo PACU Phase I - Endo Summary Primary Physician: PUJA HOLBROOK MD Finalized Date/Time: 11/09/22 08:55:35 Pt. Name: TITO GONCALVES/Sex: 1945 Male Med Rec #: [id number] Physician: Financial #: [id number] Pt. Type: A Room/Bed: / Admit/Disch: 11/09/22 06:11:45 - Institution: PACU I Case Times - Endo Entry 1 In PACU I 11/09/22 08:25:00 Ready for Transfer 11/09/22 09:19:00 Last Modified By: Sariah Schreiber RN 11/09/22 08:55:34 Finalized By: Sariah Schreiber RN Document Signatures Signed By: Sariah Schreiber RN 11/09/22 08:55 Normal [facility] POC Glucoseon 11-09-2022 Glucose [Mass/Vol] 131 mg/dL High 72-100 [facility] Comment on above: Performed By: #### 1 [id number] ####[facility] [address] [place] [id number] Medical Director: Diogo Carcamo MD Preop - Endoon 11-09-2022 Preop - Endo Preop - Endo Summary Primary Physician: PUJA HOLBROOK MD Finalized Date/Time: 11/09/22 07:13:53 Pt. Name: TITO GONCALVES/Sex: 1945 Male Med Rec #: [id number] Physician: Financial #: [id number] Pt. Type: A Room/Bed: / Admit/Disch: 11/09/22 06:11:45 - Institution: Preop - Case Times - Endo Entry 1 Patient Arrival Time 11/09/22 06:31:00 Patient Ready for 11/09/22 07:11:00 Surgery Report Given to n/a Last Modified By: Kaylyn Bettencourt RN 11/09/22 07:13:51 Finalized By: Kaylyn Bettencourt RN Document Signatures Signed By: Kaylyn Bettencourt RN 11/09/22 07:13 Normal [facility] Provider Letter - Ambulatory on 11-09-2022 Provider Letter - Ambulatory AUGUSTINE METZ, [facility] [place] [address] RE: TITO GONCALVES 11/09/2022 Dear AUGUSTINE METZ [...] - (11/09/2022) GI ERCP with Anesthesia Normal [facility] Earling Protocol/Pre-Proc TimeOut-Texton 11-09-2022 [facility] Protocol/Pre-Proc TimeOut-Text [facility] Protocol Entered On: 11/09/2022 7:13 EST Performed [...] Bazzi; Reviewed Date: 10/26/2022 14:56 EST Beta Doimnic Beta Dominic History : Patient self administered [...] Haider RN - 11/09/2022 7:48 EST Normal [facility] Phone Msgon 11-08-2022 Phone Msg - [...] Pt was asked 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 Normal [facility] MRI ABDOMEN WO CONon 023 MRI [...] by: SANTOS DC Date: 2022-11-01 09:53 Normal [facility] Phone Msgon 10-28-2022 Phone Msg - From: [...] Number: H Did he say who his Executive Meeting Manager was? From: Caren Carvalho RN To: Blanca Bazzi; Fela Alexandre; Sent: 10/28/2022 09:50:53 EST Subject: RE: Cardiac Clearance Caller Name: TITO GONCALVES; Caller Number: H He sees Dr. Metz sent LM for pt-Per Dr. Metz, pt can be off his Coumadin 5 days prior to his procedure. Normal [facility] AMB GI Physician Progress No irma 10-26-2022 AMB GI Physician Progress Note Chief Complaint Abdominal pain History of Present Illness 77-year-old male with recurrent history of choledocholithiasis last ERCP was done a year ago in [place] Patient had admission in hospital in [place] [...] Est Pt Mod MDM / 30-39 min 88759, 10/26/2022 16:13:00 EST, Abdominal pain / Pancreatic cyst MR CP, 10/26/2022, Routine, PAIN, Abdominal pain / Pancreatic cyst 2. Pancreatic cyst K86.2 Pancreatic cyst stable very low CEA levels suggestive of simple serous cyst versus inflammatory cyst. Asymptomatic Ordered: AMB Follow - Up Appt Amb, 10/26/2022 16:13:00 EST, 4 weeks AMB Office/Outpt Est Pt Mod MDM / 30-39 min 01253, 10/26/2022 16:13:00 EST, Abdominal pain / Pancreatic [...] extended release, 325 mg= 1 caps, ORAL, [id number] trazodone = Desyrel, 50 mg, ORAL, BID [...] Care Team Primary Care Physician AUGUSTINE METZ [phone] Attending Physician PUJA HOLBROOK MD [phone] . Health Maintenance Pending (in the next year) There are no current recommendations pending Satisfied (in the past 1 year) There are no satisfied recommendations within the defined date range Normal [facility] Comprehensive Intake - Texto n 10-26-2022 [...] in, 183 cm) Body Mass Index Measured Pakistani : 18.85 kg/m2 BSA Pakistani : 1.79 m2 Ht/Wt Measurement Refused by [...] : No pain present Lori Cintron MA 10/26/2022 14:56 EST Infection Screening - Ambulatory Exposure AND/OR close contact with a person under investigation or laboratory-confirmed COVID-19 individual within 14 days of symptom onset AND/OR any of the following: : No Do you live/work in a high risk situation (congregated living, hemodialysis, infusion clinic, long-term, assisted living, halfway, homeless alf, etc.)? : No Lori Cintron MA 10/26/2022 14:56 EST Depression Screening Is patient [...] Abnormal LFTs (liver function tests) (SNOMED CT :710367285 ) Name of Problem: Abnormal LFTs (liver function tests) ; Recorder: Blanca Bazzi; Confirmation: Confirmed ; Classification: Medical ; Code: 066404928 ; Contributor System: PowerChart ; Last Updated: 07/01/2021 12:43 EDT ; Life Cycle Date: 07/01/2021 ; Life Cycle Status: Active ; Vocabulary: SNOMED CT Arthritis (SNOMED CT :3983704 ) Name of Problem: Arthritis ; Recorder: Blanca Bazzi; Confirmation: Confirmed ; Classification: Medical ; Code: 0328787 ; Contributor System: PowerChart ; Last Updated: 07/01/2021 12:43 EDT ; Life Cycle Date: 07/01/2021 ; Life Cycle Status: Active ; Vocabulary: SNOMED CT Choledocholithiasis (SNOMED CT :982747223 ) Name of Problem: Choledocholithiasis ; Recorder: PUJA HOLBROOK MD; Confirmation: Confirmed ; Classification: Medical ; Code: 805458534 ; Contributor System: PowerChart ; Last Updated: 07/01/2021 13:27 EDT ; Life Cycle Date: 07/01/2021 ; Life Cycle Status: Active ; Responsible Provider: PUJA HOLBROOK MD; Vocabulary: SNOMED CT Diabetes (SNOMED CT :061374970 ) Name of Problem: Diabetes ; Recorder: Blanca Bazzi; Confirmation: Confirmed ; Classification: Medical ; Code: 784118596 ; Contributor System: PersonalisChart ; Last Updated: 07/01/2021 12:43 EDT ; Life Cycle Date: 07/01/2021 ; Life Cycle Status: Active ; Vocabulary: SNOMED CT Gallbladder disease (SNOMED CT :794522565 ) Name of Problem: Gallbladder disease ; Recorder: Blanca Bazzi; Confirmation: Confirmed ; Classification: Medical ; Code: 016351578 ; Contributor System: PowerChart ; Last Updated: 07/01/2021 12:44 EDT ; Life Cycle Date: 07/01/2021 ; Life Cycle Status: Active ; Vocabulary: SNOMED CT GERD (gastroesophageal reflux disease) (SNOMED CT :900145016 ) Name of Problem: GERD (gastroesophageal reflux disease) ; Recorder: Blanca Bazzi; Confirmation: Confirmed ; Classification: Medical ; Code: 673546850 ; Contributor System: PowerChart ; Last Updated: 07/01/2021 12:44 EDT ; Life Cycle Date: 07/01/2021 ; Life Cycle Status: Active ; Vocabulary: SNOMED CT Hypertension (SNOMED CT :8729752071 ) Name of Problem: Hypertension ; Recorder: Blanca Bazzi; Confirmation: Confirmed ; Classification: Medical ; Code: 3556716772 ; Contributor System: PowerChart ; Last Updated: 07/01/2021 12:44 EDT ; Life Cycle Date: 07/01/2021 ; Life Cycle Status: Active ; Vocabulary: SNOMED CT Irregular heart rhythm (SNOMED CT :567165313 ) Name of Problem: Irregular heart rhythm ; Recorder: Blanca Bazzi; Confirmation: Confirmed ; Classification: Medical (more content not included)... Normal [facility] Provider Letter - Ambulatory on 10-26-2022 Provider Letter - Ambulatory AUGUSTINE METZ, [facility] [place] [address] RE: TITO GONCALVES 10/26/2022 Dear AUGUSTINE METZ [...] - (10/26/2022) *.AMB Office Visit Note Normal [facility] Phone Msgon 10-22-2022 Phone Msg - [...] him until December. He has moved to [facility] and Tito would be considered a new patient. His daughter did not feel he was acutely ill and that he can wait for the appointment next Tuesday. Normal [facility] GLYCOHEMOGLOBIN A1Con 2022 ADA RECOMMENDATION SEE BELOW Normal [facility] Comment on above: Result Comment: ADA RECOMMENDED LIMIT 4.0 - 6.0 ADA THERAPEUTIC TARGET < 7.0 ACTION SUGGESTED > 7.0 Performed By: #### A 1C ####[facility] [address] [place], [place] [address]Ny. Arjun Menjivar Glucose [Mass/Vol] 163 mg/dL Normal [facility] Comment on above: Performed By: #### A 1C ####[facility] [address] [place], [place] [address]OzMago Menjivar HbA1c (Bld) [Mass fraction] 7.3 % Critically high 4.5-6.2 [facility] Comment on above: Performed By: #### A 1C ####[facility] [address] [place], [place] [address]VmMago Menjivar Dermatopathologyon 2 Dermatopathology Name: TITO GONCALVES Pathologist: KRISTEN OCONNOR MD Date of Procedure: 09/07/2022 Date Received: 09/07/2022 Date Reported 09/08/2022 Submitting Physician: MACARIO BUI MD, Location: [facility] Copy To/Referring/Attending: MD SABRA SIMS FINAL DIAGNOSIS 3 SLIDES, [facility] #[id number] (BX: 08/03/2022) A. 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 B. SKIN, RIGHT PENTECOSTAL, SHAVE BIOPSY: MELANOMA IN SITU, PRESENT ON [...] M.D. CANCER SUMMARY REPORT A. 3 SLIDES, [facility] #[id number] (BX: 08/03/2022): SPECIMEN Procedure: Biopsy, shave Specimen Laterality: Right TUMOR Tumor Site: Skin of other and unspecified parts of face: Right latter day Histologic Type: Melanoma in situ, lentigo maligna [...] ADDITIONAL FINDINGS Additional Findings: None ADDITIONAL TESTING Passenger Vessel Chef Blocks: Normal Block: None Tumor Block: A1 Electronically Signed Out By KRISTEN OCONNOR MD/[facility] Diagnostic interpretation performed at [facility] [id number] [place] [address] [id number], [facility] [address] Microscopic Description: A. Microscopic examination reveals nests [...] OTHER Specimens Submitted As: A: 3 SLIDES, [facility] #[id number] (BX: 08/03/2022) Gross Description: Received for consultation from [facility] are three slides labeled [id number] (BX: 08/03/2022) along with the corresponding pathology report. Slide/Block Description 3 SLIDES, [id number]. Keep Slides: N Slides Returned: N Personal Consult: N Normal [facility] Comment on above: Performed By: #### D #### Dermatopathology GLYCOHEMOGLOBIN A1Con 2021 ADA RECOMMENDATION SEE BELOW Normal [facility] Comment on above: Result Comment: ADA RECOMMENDED LIMIT 4.0 - 6.0 ADA THERAPEUTIC TARGET < 7.0 ACTION SUGGESTED > 7.0 Performed By: #### A 1C ####[facility] [address] [place] [address]DrMago Menjivar Glucose [Mass/Vol] 151 mg/dL Normal [facility] Comment on above: Performed By: #### A 1C ####[facility] [address] [place], [place] [address]PaMago Menjivar HbA1c (Bld) [Mass fraction] 6.9 % Critically high 4.5-6.2 [facility] Comment on above: Performed By: #### A 1C ####[facility] [address] [place] [id number]. Arjun Menjivar XR ESOPHAGUSon 06-28-2022 XR ESOPHAGUS [...] by: CARMEN PABLO Date: 2022-06-28 14:07 Normal [facility] XR MODIFIED BARIUM SWALLOWon 06-15-2022 XR MODIFIED [...] by: SANTOS DC Date: 2022-06-15 11:11 Normal [facility] Ambulatory Visit Summaryon 0 05-03-2022 Ambulatory Visit [...] Comments: PRN Where: [facility] [address] , [place] [address]- [phone] Medications What How Much When Instructions Unchanged [...] the si (more content not included)... Normal [facility] Patient Educationon 05-03-20 Patient Education Urology [...] Follow these instructions at home: ? Take hpnr-tjv-iwamwlj and prescription medicines only as told by [...] a KUB. KUB done on 04/26/22 at [facility] impression showed no appreciable urinary tract [...] URL [facility] [address], [place] [address]- [phone] Additional Instructions: PRN Patient Education Benign Prostatic [...] in lifetim (more content not included)... Normal [facility] Comment on above: Result Comment: Elec tronically Signed By: Mc ALMONTE MD\.br\Date and Time Signed: 05/03/22 09:26 EDT\.br\Electronically Co-Signed By: eJrri Lyles\.br\Date and Time Co-Signed: 05/03/22 09:24 EDT RAD - MISCon 04-28-2022 RAD - MIS [id number] Normal [facility] XR KUB 1 VIEWon 04-27-2022 XR [...] by: SANTOS DC Date: 2022-04-27 06:18 Normal [facility] GLYCOHEMOGLOBIN A1Con 2021 ADA RECOMMENDATION SEE BELOW Normal [facility] Comment on above: Result Comment: ADA RECOMMENDED LIMIT 4.0 - 6.0 ADA THERAPEUTIC TARGET < 7.0 ACTION SUGGESTED > 7.0 Performed By: #### A 1C #### [facility] [address] [address] [address] Arjun Menjivar Glucose [Mass/Vol] 126 mg/dL Normal [facility] Comment on above: Performed By: #### A 1C #### [facility] [address] [place] [address] Dr. Arjun Menjivar HbA1c (Bld) [Mass fraction] 6.0 % Normal 4.5-6.2 [facility] Comment on above: Performed By: #### A 1C #### [facility] [address] [place] [address] Dr. Arjun Menjivar IRON AND TIBCon 04-07-2022 % SATURATION 25.4 % Normal [facility] Comment on above: Performed By: #### F ETIBC, B12FOL #### [facility] [address] [place] [address] Dr. Arjun Menjivar Iron [Mass/Vol] 62.0 ug/dL Critically low 65.0-175.0 [facility] Comment on above: Performed By: #### F ETIBC, B12FOL #### [facility] [address] [place] [address] Dr. Arjun Menjivar TIBC DIRECT 244.0 ug/dL Critically low 250.0-450. 0 [facility] Comment on above: Performed By: #### F ETIBC, B12FOL #### [facility] [address] [place] [address] Dr. Arjun Menjivar VIT B12 AND FOLATEon 022 Cobalamin (Vitamin B12) [Mass/Vol] 597.0 pg/mL Normal 193.0-986. 0 [facility] Comment on above: Performed By: #### F ETIBC, B12FOL #### [facility] [address] [place] [address] Dr. Arjun Menjivar FOLATE 21.50 ng/mL Normal 8.60-58.90 [facility] Comment on above: Performed By: #### F ETIBC, B12FOL #### [facility] [address] [place] [address] Dr. Arjun Menjivar CBCon 03-16-2022 ABSOLUTE BAS 0.0 10*3/uL Normal 0.0-0.2 [facility] Comment on above: Result Comment: Test ing performed at [place] [address] Performed By: #### R ENF, ACBC, PT #### Testing performed at [address] [address] ABSOLUTE EOS 0.00 10*3/uL Normal 0.0-0.7 [facility] Comment on above: Performed By: #### R HUGH MAGDALENO, PT #### Testing performed at [address] [address] ABSOLUTE NEUTROPHIL COUNT 8.5 10*3/uL High 1.4-6.5 [facility] Comment on above: Performed By: #### HUGH FARIA, PT #### Testing performed at [address] [address] Basophils/100 WBC (Bld) 0.1 % Normal 0.0-2.0 [facility] Comment on above: Performed By: #### HUGH FARIA, PT #### Testing performed at [address] [address] DTYPE AUTO DIFF Normal [facility] Comment on above: Performed By: #### R HUGH MAGDALENO, PT #### Testing performed at [address] [address] Eosinophils/100 WBC (Bld) 0.0 % Normal 0.0-11.0 [facility] Comment on above: Performed By: #### HUGH FARIA, PT #### Testing performed at [address] [address] Lymphocytes (Bld) [#/Vol] 0.60 10*3/uL Low 1.2-3.4 [facility] Comment on above: Performed By: #### R LUMA MAGDALENOBC, PT #### Testing performed at [address] [address] Lymphocytes/100 WBC (Bld) 6.4 % Low 20.0-55.0 [facility] Comment on above: Performed By: #### R LUMA MAGDALENOBC, PT #### Testing performed at [address] [address] Monocytes (Bld) [#/Vol] 0.4 10*3/uL Normal 0.0-0.7 [facility] Comment on above: Performed By: #### R HUGH MAGDALENO, PT #### [place] [address] Monocytes/100 WBC (Bld) 4.1 % Normal 0.0-10.0 [facility] Comment on above: Performed By: #### R HUGH MAGDALENO, PT #### Testing performed at [place] [id number] Neutrophils/100 WBC (Bld) 89.4 % High 37.0-75.0 [facility] Comment on above: Performed By: #### R HUGH MAGDALENO, PT #### [place] [address] Erythrocyte distribution width (RBC) [Ratio] 17.0 % High 11.5-14.5 [facility] Comment on above: Performed By: #### R HUGH MAGDALENO, PT #### [place] [address] Hematocrit (Bld) [Volume fraction] 33.9 % Low 42.0-52.0 [facility] Comment on above: Performed By: #### R HUGH MAGDALENO, PT #### Testing performed at [place] [id number] Hemoglobin (Bld) [Mass/Vol] 11.7 g/dL Low 14.0-18.0 [facility] Comment on above: Performed By: #### R LUMA MAGDALENOBC, PT #### Testing performed at [place] [id number] MCH (RBC) [Entitic mass] 30.0 pg Normal 26.0-35.0 [facility] Comment on above: Performed By: #### R LUMA MAGDALENOBC, PT #### Testing performed at [place] [id number] MCHC (RBC) [Mass/Vol] 34.5 g/dL Normal 27.0-37.0 [facility] Comment on above: Performed By: #### R HUGH MAGDALENO, PT #### Testing performed at [place] [id number] MCV (RBC) [Entitic vol] 87.2 fL Normal 80.0-100.0 [facility] Comment on above: Performed By: #### R LUMA MAGDALENOBC, PT #### Testing performed at [place] [id number] Platelet mean volume (Bld) [Entitic vol] 9.2 fL Normal 7.4-11.0 [facility] Comment on above: Performed By: #### R LUMA MAGDALENOBC, PT #### [place] [address] Platelets (Bld) [#/Vol] 154 10*3/uL Normal 130.0-400. 0 [facility] Comment on above: Performed By: #### R HUGH MAGDALENO, PT #### [place] [address] RBC (Bld) [#/Vol] 3.89 10*6/uL Low 4.0-6.1 [facility] Comment on above: Performed By: #### R HUGH MAGDALENO, PT #### Testing performed at [place] [id number] WBC (Bld) [#/Vol] 9.5 10*3/uL Normal 3.6-11.0 [facility] Comment on above: Performed By: #### R LUMA MAGDALENOBC, PT #### Testing performed at [place] [id number] CBC, EDIF, PLATELETon 2021 ABSOLUTE BASOPHIL COUNT 0.0 10*3/uL 0.0 - 0.2 10*3/uL [facility] Comment on above: Testing performed at [place] [id number] Basophils/100 WBC (Bld) 0.1 % 0.0 - 2.0 % [facility] Differential cell count method Nom (Bld) AUTO DIFF % [facility] Eosinophils (Bld) [#/Vol] 0.00 10*3/uL 0.0 - 0.7 10*3/uL [facility] Eosinophils/100 WBC (Bld) 0.0 % 0.0 - 11.0 % [facility] Erythrocyte distribution width (RBC) [Ratio] 17.0 % High 11.5 - 14.5 % [facility] Hematocrit (Bld) [Volume fraction] 33.9 % Low 42.0 - 52.0 % [facility] Hemoglobin (Bld) [Mass/Vol] 11.7 g/dL Low [facility] Interpretation and review of laboratory results Abnormal [facility] Lymphocytes (Bld) [#/Vol] 0.60 10*3/uL Low 1.2 - 3.4 10*3/uL [facility] Lymphocytes/100 WBC (Bld) 6.4 % Low 20.0 - 55.0 % [facility] MCH (RBC) [Entitic mass] 30.0 pg 26.0 - 35.0 PG [facility] MCHC (RBC) [Mass/Vol] 34.5 g/dL [facility] MCV (RBC) [Entitic vol] 87.2 fL [facility] Monocytes (Bld) [#/Vol] 0.4 10*3/uL 0.0 - 0.7 10*3/uL [facility] Monocytes/100 WBC (Bld) 4.1 % 0.0 - 10.0 % [facility] Neutrophils (Bld) [#/Vol] 8.5 10*3/uL High 1.4 - 6.5 10*3/uL [facility] Neutrophils/100 WBC (Bld) 89.4 % High 37.0 - 75.0 % [facility] Platelet mean volume (Bld) [Entitic vol] 9.2 fL [facility] Platelets (Bld) [#/Vol] 154 10*3/uL 130.0 - 400.0 10*3/uL [facility] RBC (Bld) [#/Vol] 3.89 10*6/uL Low 4.0 - 6.1 10*6/uL [facility] WBC (Bld) [#/Vol] 9.5 10*3/uL 3.6 - 11.0 10*3/uL [facility] PROTIMEon 03-16-2022 INR Coag (PPP) [Relative time] 1.37 {INR} High 0.85-1.10 [facility] Comment on above: Result Comment: 2.0-3.0 THERAPEUTIC RANGE 2.5-3.5 MECHANICAL VALVE RANGE Testing performed at [place] [address] Performed By: #### R ENF, ACBC, PT #### [place] [address] PT Coag (PPP) [Time] 16.9 s High 11.8-14.4 [facility] Comment on above: Performed By: #### R ENF, ACBC, PT #### [place] [address] PROTIME-INRon 03-16-2022 INR Coag (PPP) [Relative time] 1.37 {INR} High [facility] Comment on above: 2.0-3.0 THERAPEUTIC RANGE 2.5-3.5 MECHANICAL VALVE RANGE Testing performed at [place] [address] Interpretation and review of laboratory results Abnormal [facility] PT Coag (PPP) [Time] 16.9 s High [facility] RENAL FUNCTION PANELon 03-16 Albumin [Mass/Vol] 3.3 G/dl Low 3.5 - 5.0 G/dl [facility] Calcium [Mass/Vol] 7.9 mg/dL Low [facility] Chloride [Moles/Vol] 106 mmol/L [facility] Comment on above: Please note: Triglyc eride levels of 600mg/dL or higher may positively bias chloride results by approximately 2.1 mmol CO2 [Moles/Vol] 23 mmol/L [facility] Creatinine [Mass/Vol] 1.20 mg/dL [facility] GFR COMMENT Average GFR for 70+ years old = 75. [facility] Comment on above: Chronic Kidney disea se, GFR = <60. Kidney failure, GFR = <15. The GFR estimate is not adjusted for extreme body surface area or acute process, nor has it been validated for women or ethnic groups other than and . Testing performed at [place] [address] GFR/1.73 sq M.predicted among blacks MDRD (S/P/Bld) [Vol rate/Area] 76 mL/min/{1.73_m2} ml/min/1.7 3sq.m [facility] GFR/1.73 sq M.predicted among non-blacks MDRD (S/P/Bld) [Vol rate/Area] 63 mL/min/{1.73_m2} ml/min/1.7 3sq.m [facility] Glucose post fast [Mass/Vol] 230 mg/dL [facility] Comment on above: NORMAL <100 mg/dL PREDIABETES 101-126 mg/dL DIABETES 126 mg/dL or higher Interpretation and review of laboratory results Abnormal [facility] Phosphate [Mass/Vol] 2.9 mg/dL [facility] Potassium [Moles/Vol] 4.5 mmol/L [facility] Sodium [Moles/Vol] 136 mmol/L Low [facility] Urea nitrogen [Mass/Vol] 22 mg/dL [facility] RENAL PANEL,FASTINGon 2021 ALBUMIN 3.3 G/dl Low 3.5-5.0 [facility] Comment on above: Performed By: #### R RASTA ACBC, PT #### [place] [address] Calcium [Mass/Vol] 7.9 mg/dL Low 8.4-10.2 [facility] Comment on above: Performed By: #### R ENF ACBC, PT #### Testing performed at [place] [id number] Chloride [Moles/Vol] 106 mmol/L Normal 98-107 [facility] Comment on above: Result Comment: [place] note: Triglyceride levels of 600mg/dL or higher may positively bias chloride results by approximately 2.1 mmol Performed By: #### R ENF ACBC, PT #### Testing performed at [place] [address] CO2 [Moles/Vol] 23 mmol/L Normal 22-30 [facility] Comment on above: Performed By: #### R ENF ACBC, PT #### [place] [address] Creatinine [Mass/Vol] 1.20 mg/dL Normal 0.7-1.2 [facility] Comment on above: Performed By: #### R ENF ACBC, PT #### [place] [address] EST. GFR, 76 ml/min/1.73sq.m [facility] Comment on above: Performed By: #### R ENF ACBC, PT #### [place] [address] EST. GFR,Non 63 ml/min/1.73sq.m [facility] Comment on above: Performed By: #### R ENF ACBC, PT #### [place] [address] GFR Information Average GFR for 70+ years old = 75. Normal [facility] Comment on above: Result Comment: [employer] david Kidney disease, GFR = <60. Kidney failure, GFR = <15. The GFR estimate is not adjusted for extreme body surface area or acute process, nor has it been validated for women or ethnic groups other than and . Testing performed at [place] [address] Performed By: #### R ENFLUMABC, PT #### [place] [address] Glucose [Mass/Vol] 230 mg/dL High 70-100 [facility] Comment on above: Result Comment: NORMAL <100 mg/dL PREDIABETES 101-126 mg/dL DIABETES 126 mg/dL or higher Performed By: #### R ENF ACBC, PT #### [place] [address] PHOSPHOROUS 2.9 MG/DL Normal 2.5-4.5 [facility] Comment on above: Performed By: #### R ENF ACBC, PT #### Testing performed at [place] [id number] Potassium [Moles/Vol] 4.5 mmol/L Normal 3.5-5.1 [facility] Comment on above: Performed By: #### R HUGH MAGDALENO, PT #### [place] [address] Sodium [Moles/Vol] 136 mmol/L Low 137-145 [facility] Comment on above: Performed By: #### R HUGH MAGDALENO, PT #### [place] [address] Urea nitrogen [Mass/Vol] 22 mg/dL High 7-20 [facility] Comment on above: Performed By: #### R HUGH MAGDALENO, PT #### [place] [address] GLUCOSE (POC DEVICE)on 03-15 GLUCOSE, POINT OF CARE [address] [facility] Interpretation and review of laboratory results Abnormal [facility] Operator [facility] Comment on above: Testing performed at [address] MRSA SCREENon 03-15-2022 MRSA DNA HERIBERTO+probe Ql (Unsp spec) Not detected Normal NOT DETECTED [facility] Comment on above: Performed By: #### M RSAST #### [place] [address] STAPH AUREUS SCREEN Not detected Normal NOT DETECTED [facility] Comment on above: Result Comment: Test ing performed at [place] [address] Performed By: #### M RSAST #### [place] [address] NOVEL CORONAVIRUSon 03-15-20 22 NARRATIVE This test was perfor med using isothermal HERIBERTO and has been approved as Emergency Use Authorization (EUA) for the qualitative detection [id number] nucleic acid. Normal [facility] Comment on above: Result Comment: Test ing performed at [place] [address] Performed By: #### C OVID #### [place] [address] SARS-CoV-2 (COVID-19) RNA HERIBERTO+probe Ql (Unsp spec) Not detected Normal NOT DETECTED [facility] Comment on above: Result Comment: Nega tive [...] #### C OVID #### Testing performed at [address] [address] NOVEL CORONAVIRUS LAB 1 - NA SOPHARYNGEALon 03-15-2022 NARRATIVE -1 This test was perfor med using isothermal HERIBERTO and has been approved as Emergency Use Authorization (EUA) for the qualitative detection [id number] nucleic acid. [facility] Comment on above: Testing performed at [place], [place] [address] SARS-CoV-2 (COVID-19) RNA HERIBERTO+probe Ql (Unsp spec) Not detected NOT DETECTED [facility] Comment on above: Negative results do [...] critically ill or clinically deteriorating. [facility] POCT GLUCOSEon 03-15-2022 Glucose [Mass/Vol] 118 mg/dL High 70-100 [facility] Comment on above: Performed By: #### P OCGLU #### [place] [address] [employer] [id number] Normal [facility] Comment on above: Result Comment: Test ing performed at [place] [address] Performed By: #### P OCGLU #### [place] [address] PROTIMEon 03-15-2022 INR Coag (PPP) [Relative time] 1.36 {INR} High 0.85-1.10 [facility] Comment on above: Result Comment: 2.0-3.0 THERAPEUTIC RANGE 2.5-3.5 MECHANICAL VALVE RANGE Testing performed at [place] [address] Performed By: #### P T #### [place] [address] PT Coag (PPP) [Time] 16.8 s High 11.8-14.4 [facility] Comment on above: Performed By: #### P T #### [place] [address] PROTIME-INRon 03-15-2022 INR Coag (PPP) [Relative time] 1.36 {INR} High [facility] Comment on above: 2.0-3.0 THERAPEUTIC RANGE 2.5-3.5 MECHANICAL VALVE RANGE Testing performed at [place] [address] Interpretation and review of laboratory results Abnormal [facility] PT Coag (PPP) [Time] 16.8 s High [facility] PTTon 03-15-2022 aPTT Coag (Bld) [Time] 28.7 s Normal 22.4-34.7 [facility] Comment on above: Result Comment: CARDIAC AND PE/DVT THERAPUTIC RANGE 69-97 SEC VASCULAR/THREATENED LIMB THERAPUTIC RANGE 80-112 SEC Testing performed at [place] [address] Performed By: #### P TT #### [place] [address] aPTT Coag (Bld) [Time] 28.7 s [facility] Comment on above: CARDIAC AND PE/DVT THERAPUTIC RANGE 69-97 SEC VASCULAR/THREATENED LIMB THERAPUTIC RANGE 80-112 SEC Testing performed at [address] SCREEN: MRSA ONLY, NARES (IS OLATION SCREEN)on 03-15-2022 MRSA isol Org specific cx Ql (Nose) Not detected NOT DETECTED [facility] STAPHYOCOCCUS AUREUS BY PCR Not detected NOT DETECTED [facility] Comment on above: Testing performed at [address] TYPE AND SCREEN CROSSMATCH C ONVERTIBLEon 03-15-2022 TYPE AND SCREEN CROSSMATCH CONVERTIBLE WORKUP EXPIRES 03/18/2022,2359 ABO/RH(D) A POSITIVE ANTIBODY SCREEN NEGATIVE ARM BAND NUMBER [id number] Testing performed at [place] [address] Normal [facility] Comment on above: Performed By: #### T SCC #### [place] [address] TYPE AND SCREEN - POSSIBLE T RANSFUSIONon 03-15-2022 ABO and Rh group Nom (Bld ) Positive [facility] [employer] ARM BAND NUMBER [id number] [facility] ARM BAND NUMBER Testing performed at [address] Blood group antibody screen Ql Negative [facility] orderTalk EXPIRATION DATE 03/18/2022,[address] [facility] [address] [facility] XR KNEE RIGHT 2 VIEWSon 02-25 XR KNEE RIGHT 2 VIEWS EXAM: XR KNEE RIGH T 2 VIEWS HISTORY: COMPARISON: FINDINGS: Joint replacement is seen with overall preservation of normal alignment. No abnormal lucency is seen around the hardware. IMPRESSION: Joint replacement without hardware complication Normal [facility] XR Knee - right 2 Viewson IMPRESSION: [...] IMPRESSION IMPRESSION: Joint replacement without hardware complication [place] [facility] Study observation (narrative) [place] XR Knee - right 2 ViewsOrder ed By: Abel Resendiz on 03-15-2022 [place] Work Phone: Operative Reporton 9 Operative Report MR#: [id number] [facility] Pt. Name: Tito Goncalves Room #: CC [...] form. 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 [address] [place] [address] [facility] [id number] Ryan Cardenas M.D. [address] [place] [address] [place] [facility] Repor ton 06-21-2017 Health [...] questions or concerns in the meantime. Normal [facility] Vital Signs Date Time Vital Sign Value Performing Clinician Facility 01-09-2025 09:57-0400 Body height 172.72 cm Augustine Gient DO Work Phone: [facility] 01-09-2025 09:57-0400 Body mass index (BMI) [Ratio] 37.7 kg/m2 Augustine Gient DO Work Phone: [facility] 01-09-2025 09:57-0400 Body weight 112.6 kg Augustine Gient DO Work Phone: [facility] 01-09-2025 09:57-0400 Diastolic blood pressure 85 mm[Hg] Augustine Gient DO Work Phone: [facility] 01-09-2025 09:57-0400 Heart rate 58 /min Augustine Ball DO Work Phone: [facility] 01-09-2025 09:57-0400 Respiratory rate 12 /min Augustine Ball DO Work Phone: [facility] 01-09-2025 09:57-0400 Systolic blood pressure 135 mm[Hg] Augustine Ball DO Work Phone: [facility] 01-01-2025 10:01-0400 Body height 182.9 cm Augustine Murcek DO Work Phone: [facility] 01-01-2025 10:01-0400 Body mass index (BMI) [Ratio] 33.91 kg/m2 Augustine Murcek DO Work Phone: [facility] 01-01-2025 10:01-0400 Body weight 113.4 kg Augustine Murcek DO Work Phone: [facility] 10-30-2024 09:49-0500 Body height 182.9 cm Augustine Murcek DO Work Phone: [facility] 10-30-2024 09:49-0500 Body mass index (BMI) [Ratio] 33.91 kg/m2 Augustine Murcek DO Work Phone: [facility] 10-30-2024 09:49-0500 Body weight 113.4 kg Augustine Murcek DO Work Phone: [facility] 10-22-2024 11:30-0500 Diastolic blood pressure 66 mm[Hg] Augustine Ball DO Work Phone: [facility] 10-22-2024 11:30-0500 Heart rate 52 /min Augustine Ball DO Work Phone: [facility] 10-22-2024 11:30-0500 Respiratory rate 14 /min Augustine Ball DO Work Phone: [facility] 10-22-2024 11:30-0500 SaO2% (BldA) [Mass fraction] 94 % Augustine Ball DO Work Phone: [facility] 10-22-2024 11:30-0500 Systolic blood pressure 119 mm[Hg] Augustine Ball DO Work Phone: [facility] 10-22-2024 10:55-0500 Inhaled oxygen flow rate 0 L/min Augustine Ball DO Work Phone: [facility] 10-22-2024 10:25-0500 Body temperature 97.5 [degF] Augustine Ball DO Work Phone: [facility] 10-22-2024 07:25-0500 Body height 182.88 cm Augustine Ball DO Work Phone: [facility] 10-22-2024 07:25-0500 Body weight 111.4 kg Augustine Ball DO Work Phone: [facility] 10-17-2024 13:34-0500 Body height 182.9 cm Augustine Rojascek DO Work Phone: [facility] 10-17-2024 13:34-0500 Body mass index (BMI) [Ratio] 33.91 kg/m2 Augustine Murcek DO Work Phone: [facility] 10-17-2024 13:34-0500 Body weight 113.4 kg Augustine Omercek DO Work Phone: [facility] 10-16-2024 12:55-0500 Diastolic blood pressure 64 mm[Hg] Christin Bolton MD Work Phone: [facility] 10-16-2024 12:55-0500 Systolic blood pressure 140 mm[Hg] Christin Bolton MD Work Phone: [facility] 10-10-2024 08:38-0500 Body height 172.72 cm [facility] 10-10-2024 08:38-0500 Body mass index (BMI) [Ratio] 37.3 kg/m2 [facility] 10-10-2024 08:38-0500 Body weight 111.18 kg [facility] 10-10-2024 08:38-0500 Diastolic blood pressure 70 mm[Hg] [facility] 10-10-2024 08:38-0500 Heart rate 62 /min [facility] 10-10-2024 08:38-0500 Respiratory rate 12 /min [facility] 10-10-2024 08:38-0500 Systolic blood pressure 127 mm[Hg] [facility] 10-03-2024 08:09-0500 Body height 182.9 cm Kingston Anat DO Work Phone: [facility] 10-03-2024 08:09-0500 Body mass index (BMI) [Ratio] 34.23 kg/m2 Kingston Anat DO Work Phone: [facility] 10-03-2024 08:09-0500 Body weight 114.49 kg Kingston Anat DO Work Phone: [facility] 10-03-2024 08:09-0500 Diastolic blood pressure 82 mm[Hg] Kingston Anat DO Work Phone: [facility] 10-03-2024 08:09-0500 Heart rate 62 /min Kingston Anat DO Work Phone: [facility] 10-03-2024 08:09-0500 SaO2% (BldA) [Mass fraction] 95 % Kingston Anat DO Work Phone: [facility] 10-03-2024 08:09-0500 Systolic blood pressure 132 mm[Hg] Kingston Anat DO Work Phone: [facility] 08-21-2024 09:22-0500 Body height 172.72 cm [facility] 08-21-2024 09:22-0500 Body mass index (BMI) [Ratio] 37.5 kg/m2 [facility] 08-21-2024 09:22-0500 Body weight 112.15 kg [facility] 08-21-2024 09:22-0500 Diastolic blood pressure 70 mm[Hg] [facility] 08-21-2024 09:22-0500 Heart rate 62 /min [facility] 08-21-2024 09:22-0500 Respiratory rate 12 /min [facility] 08-21-2024 09:22-0500 Systolic blood pressure 123 mm[Hg] [facility] 07-09-2024 08:50-0400 Body height 172.72 cm [facility] 07-09-2024 08:50-0400 Body mass index (BMI) [Ratio] 37.1 kg/m2 [facility] 07-09-2024 08:50-0400 Body weight 110.78 kg [facility] 07-09-2024 08:50-0400 Diastolic blood pressure 79 mm[Hg] [facility] 07-09-2024 08:50-0400 Heart rate 65 /min [facility] 07-09-2024 08:50-0400 Respiratory rate 12 /min [facility] 07-09-2024 08:50-0400 Systolic blood pressure 151 mm[Hg] [facility] 06-27-2024 08:54-0400 Body height 182.9 cm Simran Parikhr HYPNOTHERAPIST Work Phone: [facility] 06-27-2024 08:54-0400 Body mass index (BMI) [Ratio] 33.23 kg/m2 Simran Venicemor HYPNOTHERAPIST Work Phone: [facility] 06-27-2024 08:54-0400 Body weight 111.13 kg Simran Venicemor HYPNOTHERAPIST Work Phone: [facility] 06-27-2024 08:54-0400 Diastolic blood pressure 70 mm[Hg] Simran Venicemor HYPNOTHERAPIST Work Phone: [facility] 06-27-2024 08:54-0400 Heart rate 56 /min Simran Venicemor HYPNOTHERAPIST Work Phone: [facility] 06-27-2024 08:54-0400 SaO2% (BldA) [Mass fraction] 92 % Simran Venicemor HYPNOTHERAPIST Work Phone: [facility] 06-27-2024 08:54-0400 Systolic blood pressure 136 mm[Hg] Simran Venicemor HYPNOTHERAPIST Work Phone: [facility] 06-04-2024 11:14040 Body height 172.72 cm [facility] 06-04-2024 11:140400 Body mass index (BMI) [Ratio] 37.1 kg/m2 [facility] 06-04-2024 11:14040 Body weight 110.78 kg [facility] 06-04-2024 11:140400 Diastolic blood pressure 70 mm[Hg] [facility] [facility] 11:140400 Heart rate 68 /min [facility] 06-04-2024 11:14040 Respiratory rate 18 /min [facility] 06-04-2024 11:140400 SaO2% (BldA) [Mass fraction] 99 % [facility] 06-04-2024 11:140400 Systolic blood pressure 130 mm[Hg] [facility] 04-04-2024 11:19040 Body height 172.72 cm DO Augustine Ball Work Phone: [facility] 04-04-2024 11:190400 Body mass index (BMI) [Ratio] 36.6 kg/m2 DO Augustine Ball Work Phone: [facility] 04-04-2024 11:19040 Body weight 109.37 kg DO Augustine Ball Work Phone: [facility] 04-04-2024 11:190400 Diastolic blood pressure 77 mm[Hg] DO Augustine Ball Work Phone: [facility] 04-04-2024 11:19-0400 Heart rate 55 /min DO Augustine Ball Work Phone: [facility] 04-04-2024 11:19-0400 Respiratory rate 12 /min DO Augustine Ball Work Phone: [facility] 04-04-2024 11:190400 Systolic blood pressure 151 mm[Hg] DO Augustine Ball Work Phone: [facility] 02-27-2024 09:0400 Body height 172.72 cm DO [...] [facility] 01-31-2024 15:34-0400 Body height 181.61 cm [facility] 01-31-2024 15:34-0400 Body mass index (BMI) [Ratio] 34.5 kg/m2 [facility] 01-31-2024 15:34-0400 Body weight 114.07 kg [facility] 01-31-2024 15:34-0400 Diastolic blood pressure 79 mm[Hg] [facility] 01-31-2024 15:34-0400 Heart rate 53 /min [facility] 01-31-2024 15:34-0400 Respiratory rate 12 /min [facility] 01-31-2024 15:34-0400 Systolic blood pressure 130 mm[Hg] [facility] 10-31-2023 10:30-0500 Body height Augustine Ball Other [facility] Other 10-31-2023 10:30-0500 Body mass index (BMI) [Ratio] 33.47 kg/m2 Augustine Ball Other [facility] Other 10-31-2023 10:30-0500 Body weight 110.41 kg Augustine Ball Other [facility] Other 10-31-2023 10:30-0500 Diastolic blood pressure 68 mm[Hg] Augustine Ball Other [facility] Other 10-31-2023 10:30-0500 Respiratory rate 12 /min Augustine Ball Other [facility] Other 10-31-2023 10:30-0500 Systolic blood pressure 122 mm[Hg] Augustine Ball Other [facility] Other 03-16-2023 11:19-0400 Body height 182.9 cm LXSN Work Phone: [facility] 03-16-2023 11:19-0400 Body mass index (BMI) [Ratio] 33.23 kg/m2 LXSN Work Phone: [facility] 03-16-2023 11:19-0400 Body temperature 97.2 [degF] [employer] Work Phone: [facility] 03-16-2023 11:19-0400 Body weight 111.13 kg [employer] [facility] Work Phone: [facility] 01-05-2023 12:00-0400 Body height Augustine Ball Other [facility] Other 01-05-2023 12:00-0400 Body mass index (BMI) [Ratio] 33.36 kg/m2 Augustine Ball Other [facility] Other 01-05-2023 12:00-0400 Body weight 110.04 kg Augustine Ball Other [facility] Other 01-05-2023 12:00-0400 Diastolic blood pressure 70 mm[Hg] Augustine Ball Other [facility] Other 01-05-2023 12:00-0400 Respiratory rate 12 /min Augustine Ball Other [facility] Other 01-05-2023 12:00-0400 Systolic blood pressure 118 mm[Hg] Augustine Ball Other [facility] Other 10-04-2022 12:00-0500 Body height Augustine Ball Other [facility] Other 10-04-2022 12:00-0500 Body mass index (BMI) [Ratio] 33.44 kg/m2 Augustine Ball Other [facility] Other 10-04-2022 12:00-0500 Body weight 110.32 kg Augustine Ball Other [facility] Other 10-04-2022 12:00-0500 Diastolic blood pressure 78 mm[Hg] Augustine Ball Other [facility] Other 10-04-2022 12:00-0500 Respiratory rate 12 /min Augustine Ball Other [facility] Other 10-04-2022 12:00-0500 Systolic blood pressure 128 mm[Hg] Augustine Ball Other [facility] Other 10-01-2022 08:30-0500 Diastolic blood pressure 77 mm[Hg] Damari Rojas [facility] 10-01-2022 08:30-0500 Systolic blood pressure 132 mm[Hg] [facility] 07-08-2022 11:47-0400 Body height 182.9 cm Pastor Bedoya MD Work Phone: [facility] 07-08-2022 11:47-0400 Body mass index (BMI) [Ratio] 33.23 kg/m2 Pastor Bedoya MD Work Phone: [facility] [facility] 07-08-2022 11:47-0400 Body weight 111.13 kg Pastor Bedoya MD Work Phone: [facility] 05-03-2022 08:48-0400 Blood Pressure Location [facility] 05-03-2022 08:48-0400 Diastolic blood pressure 67 mm[Hg] [facility] 05-03-2022 08:48-0400 Heart rate 70 /min [facility] 05-03-2022 08:48-0400 Respiratory rate 16 /min Mc [facility] 05-03-2022 08:48-0400 Systolic blood pressure 120 mm[Hg] [facility] 04-08-2022 09:49-0400 Body height 182.9 cm Azul Rachel APRN-PASTOR Work Phone: [facility] 04-08-2022 09:49-0400 Body mass index (BMI) [Ratio] 33.23 kg/m2 Azul Rachel INFORMATICS EDUCATOR-PASTOR Work Phone: [employer] [facility] 04-08-2022 09:49-0400 Body temperature 96.91 [degF] Azul Rachel APRN-PASTOR Work Phone: [employer] [facility] 04-08-2022 09:49-0400 Body weight 111.13 kg Azul Rachel INFORMATICS EDUCATOR-PASTOR Work Phone: [employer] [facility] 03-16-2022 11:00-0400 Body temperature 97.7 [degF] Pastor Bedoya MD Work Phone: [employer] [facility] 03-16-2022 11:00-0400 Diastolic blood pressure 70 mm[Hg] Pastor Bedoya MD Work Phone: [employer] [facility] 03-16-2022 11:00-0400 Heart rate 77 /min Pastor Bedoya MD Work Phone: [employer] [facility] 03-16-2022 11:00-0400 Respiratory rate 14 /min Pastor Bedoya MD Work Phone: [facility] [facility] 03-16-2022 11:00-0400 SaO2% (BldA) [Mass fraction] 96 % Pastor Bedoya MD Work Phone: [facility] 03-16-2022 11:00-0400 Systolic blood pressure 142 mm[Hg] Pastor Bedoya MD Work Phone: [employer] [facility] 03-15-2022 09:00-0400 Body height 182.9 cm Pastor Bedoya MD Work Phone: [facility] 03-15-2022 09:00-0400 Body mass index (BMI) [Ratio] 31.73 kg/m2 Pastor Bedoya MD Work Phone: [facility] [facility] 03-15-2022 09:00-0400 Body weight 106.14 kg Pastor Bedoya MD Work Phone: [employer] [facility] 2022 12:57-0400 Body height 182.9 cm Pastor Bedoya MD Work Phone: [employer] [facility] 2022 12:57-0400 Body mass index (BMI) [Ratio] 33.23 kg/m2 Pastor Bedoya MD Work Phone: [facility] 2022 12:57-0400 Body temperature 97.2 [degF] Pastor Bedoya MD Work Phone: [employer] [facility] 2022 12:57-0400 Body weight 111.13 kg Pastor Bedoya MD Work Phone: [facility] 11-04-2021 14:30-0500 Body height Carmen Kahn Other [facility] Other 03-20-2020 11:06-0400 BMI (Body Mass Index) 33.63 kg/m2 [facility] 03-20-2020 11:060400 Body Temperature 97.5 [degF] [facility] 03-20-2020 11:060400 Body weight 112.49 kg [facility] 03-20-2020 11:060400 Height 182.9 cm [facility] 1945 00:00-0500 >na< Damari Rojas Dept. of Dermato logy Encounters Encounter Date Encounter Type Care Provider Facility Start: 01-09-2025 End: 01-09-2025 ambulatory Augustine Isaías Work Phone: [facility] Work Phone: Start: 01-09-2025 End: 01-09-2025 Patient encounter procedure Augustine Isaías Work Phone: [facility] Work Phone: Start: 01-03-2025 End: 01-03-2025 Bamboo flowsheet Osman Shah INFORMATICS EDUCATOR-PASTOR Work Phone: [facility] Start: 01-03-2025 End: 01-03-2025 Bamboo flowsheet Osman Shah INFORMATICS EDUCATOR-PASTOR Work Phone: [facility] Start: 01-03-2025 End: 01-03-2025 Office outpatient visit 15 minutes Osman Shah INFORMATICS EDUCATOR-PASTOR Work Phone: [facility] Comment on above: Melanocytic nevus of trunk (Primary Dx); Melanocytic nevus of lower extremity, unspecified laterality; Seborrheic keratosis; Lentigines; Capillary angioma; Telangiectasia of face; Sebaceous hyperplasia of face; History of malignant melanoma of skin; History of basal cell carcinoma; Actinic keratosis Start: 01-03-2025 End: 01-03-2025 ambulatory OSMAN SHAH Not Available Start: 01-01-2025 End: 01-01-2025 Bamboo flowsheet Augustine Freitas DO Work Phone: [facility] Start: 01-01-2025 End: 01-01-2025 Bamboo flowsheet Augustine Freitas DO Work Phone: [facility] Start: 01-01-2025 End: 01-01-2025 Postop follow up visit related to original px Augustine W Patiencek DO Work Phone: [facility] Comment on above: Skin cancer of nose (Primary Dx) Start: 01-01-2025 End: 01-01-2025 ambulatory AUGUSTINE FREITAS Not Available Start: 12-28-2024 End: 12-28-2024 Bamboo flowsheet Jose R Dodd DO Work Phone: [facility] Start: 12-28-2024 End: 12-28-2024 Bamboo flowsheet Jose R Dodd DO Work Phone: [facility] Start: 12-28-2024 End: 12-28-2024 Refill Jose R Dodd DO Work Phone: [facility] Comment on above: Age-related nuclear cataract of both eyes (Primary Dx) Start: 10-30-2024 End: 10-30-2024 Bamboo flowsheet Augustine Freitas DO Work Phone: [facility] Start: 10-30-2024 End: 10-30-2024 Bamboo flowsheet Augustine Freitas DO Work Phone: [facility] Start: 10-30-2024 End: 10-30-2024 Postop follow up visit related to original px Augustine W Zena DO Work Phone: [facility] Comment on above: Mohs defect of nose (Primary Dx) Start: 10-30-2024 End: 10-30-2024 ambulatory AUGUSTINE FREITAS Not Available Start: 10-22-2024 End: 10-22-2024 ambulatory AUGUSTINE FREITAS Not Available Start: 10-22-2024 End: 10-22-2024 External Result Encounter Augustine Freitas DO Work Phone: [facility] Unsolicited Start: 10-22-2024 End: 10-22-2024 External Result Encounter Augustine Freitas DO Work Phone: [facility] Unsolicited Start: 10-22-2024 End: 10-22-2024 Admission to same day surgery center Augusitne Metz DO Work Phone: [facility] [place] Start: 10-22-2024 End: 10-22-2024 ambulatory Augustine Metz DO Work Phone: [facility] Work Phone: Start: 10-17-2024 End: 10-17-2024 Patient encounter procedure Augustine Metz DO Work Phone: [facility] Work Phone: Start: 10-17-2024 End: 10-17-2024 ambulatory Augustine Metz DO Work Phone: [facility] Work Phone: Start: 10-17-2024 Encounter for preprocedural laboratory examination Augustine Freitas [facility] Start: 10-17-2024 End: 10-17-2024 Bamboo flowsheet Augustine Freitas DO Work Phone: [facility] Start: 10-17-2024 End: 10-17-2024 Bamboo flowsheet Augustine Freitas DO Work Phone: [facility] Start: 10-17-2024 End: 10-17-2024 External Result Encounter Augustine Freitas DO Work Phone: [facility] Unsolicited Start: 10-17-2024 End: 10-17-2024 Office outpatient visit 25 minutes Augustine Freitas DO Work Phone: [facility] Comment on above: Mohs defect of nose (Primary Dx) Start: 10-17-2024 End: 10-17-2024 ambulatory AUGUSTINE FREITAS Not Available Start: 10-16-2024 End: 10-16-2024 Patient encounter procedure Christin Bolton MD Work Phone: [facility] Comment on above: Basal cell carcinoma (BCC) of dorsum of nose Start: 10-16-2024 End: 10-16-2024 ambulatory CHRISTIN BOLTON Not Available Start: 10-10-2024 End: 10-10-2024 ambulatory [facility] Work Phone: Start: 10-10-2024 End: 10-10-2024 [facility] Work [facility]: Start: 10-04-2024 End: 10-04-2024 Patient encounter procedure Osman A Felter INFORMATICS EDUCATOR-PASTOR Work Phone: [facility] Comment on above: Neoplasm of unspecif ied behavior of bone, soft tissue, and skin (Primary Dx) Start: 10-04-2024 End: 10-04-2024 Bamboo flowsheet Osman A Felter INFORMATICS EDUCATOR-PASTOR Work Phone: [facility] Start: 10-04-2024 End: 10-04-2024 Bamboo flowsheet Osman A Felter INFORMATICS EDUCATOR-PASTOR Work Phone: [facility] Start: 10-04-2024 End: 10-04-2024 ambulatory OSMAN A FELTER Not Available Start: 10-03-2024 End: 10-03-2024 Bamboo flowsheet Kingston Anat DO Work Phone: [facility] Start: 10-03-2024 End: 10-03-2024 Bamboo flowsheet Kingston Anat DO Work Phone: [facility] Start: 10-03-2024 End: 10-03-2024 Office outpatient visit 25 minutes Kingston Coppola DO Work Phone: [facility] Comment on above: CUBA (obstructive sle ep apnea) (Primary Dx); PLMD (periodic limb movement disorder); Daytime hypersomnolence; Snoring; Primary insomnia Start: 10-03-2024 End: 10-03-2024 ambulatory KINGSTON COPPOLA Not Available Start: 09-07-2024 End: 09-07-2024 Bamboo flowsheet Jose R Dodd DO Work Phone: [facility] Start: 09-07-2024 End: 09-07-2024 Bamboo flowsheet Jose R Dodd DO Work Phone: [facility] Start: 09-07-2024 End: 09-07-2024 ambulatory JOSE R DODD Not Available Start: 08-21-2024 End: 08-21-2024 Patient encounter procedure [facility] Work Phone: Start: 08-14-2024 Non-patient / Non-visit [facility] Work Phone: Start: 08-14-2024 Non-patient / Non-visit [facility] Work Phone: Start: 07-11-2024 End: 07-11-2024 ambulatory [facility] Start: 07-09-2024 Patient encounter procedure [facility] Start: 07-09-2024 End: 07-09-2024 ambulatory [facility] Work Phone: Start: 07-09-2024 End: 07-09-2024 Patient encounter procedure [facility] Work Phone: Start: 06-27-2024 End: 06-27-2024 Bamboo flowsheet Simran Muniz HYPNOTHERAPIST Work Phone: [facility] Start: 06-27-2024 End: 06-27-2024 Bamboo flowsheet Simran Muniz HYPNOTHERAPIST Work Phone: [facility] Start: 06-27-2024 Non-patient / [facility] Work Phone: Start: 06-27-2024 End: 06-27-2024 Office outpatient visit 25 minutes Simran Muniz HYPNOTHERAPIST Work Phone: [facility] Comment on above: PLMD (periodic limb movement disorder) (Primary Dx); CUBA (obstructive sleep apnea); Daytime hypersomnolence; Primary insomnia; Snoring Start: 06-27-2024 End: 06-27-2024 ambulatory SIMRAN MUNIZ Not Available Start: 06-19-2024 End: 06-19-2024 Bamboo flowsheet Osman Shah INFORMATICS EDUCATOR-PASTOR Work Phone: [facility] Start: 06-19-2024 End: 06-19-2024 Bamboo flowsheet Osman Shah INFORMATICS EDUCATOR-PASTOR Work Phone: [facility] Start: 06-19-2024 End: 06-19-2024 Office outpatient visit 15 minutes Osman Shah INFORMATICS EDUCATOR-PASTOR Work Phone: [facility] Comment on above: Seborrheic keratosis ; Melanocytic nevus of trunk; Lentigines; Capillary angioma; Telangiectasia of face; Actinic keratosis; Seborrheic keratosis, inflamed; History of malignant melanoma of skin Start: 06-19-2024 End: 06-19-2024 ambulatory OSMAN SHAH Not Available Start: 06-08-2024 End: 06-08-2024 Bamboo flowsheet Jose R Dodd DO Work Phone: [facility] Start: 06-08-2024 End: 06-08-2024 Bamboo flowsheet Jose R Dodd DO Work Phone: [facility] Start: 06-08-2024 End: 06-08-2024 ambulatory JOSE R DODD Not Available Start: 06-04-2024 End: 06-04-2024 ambulatory [facility] Work Phone: Start: 06-04-2024 End: 06-04-2024 Patient encounter procedure [facility] Work Phone: Start: 05-16-2024 End: 05-16-2024 ambulatory DO Augustine Ball Work Phone: [facility] Work Phone: Start: 05-16-2024 End: 05-16-2024 Patient encounter procedure DO Augustine Ball Work Phone: [facility] Work Phone: Start: 04-18-2024 Non-patient / Non-visit DO Alo louann Ball Work Phone: [facility] Work Phone: Start: 04-12-2024 End: 04-12-2024 ambulatory AB [facility] Start: 04-04-2024 End: 04-04-2024 ambulatory AUGUSTINE FREITAS Not Available Start: 04-04-2024 End: 04-04-2024 ambulatory DO Augustine Ball Work Phone: [facility] Work Phone: Start: 04-04-2024 End: 04-04-2024 Patient encounter procedure DO Augustine Ball Work Phone: [facility] Work Phone: Start: 04-02-2024 Non-patient / Non-visit [facility] Work Phone: Start: 04-02-2024 Non-patient / Non-visit DO Alo louann Ball Work Phone: [facility] Work Phone: Start: 04-01-2024 Non-patient / Non-visit DO Alo louann Ball Work Phone: [facility] Work Phone: Start: 03-22-2024 End: 03-22-2024 ambulatory OLIVER CRANE [facility] Start: 03-16-2024 End: 03-16-2024 ambulatory MADISON PAUL [facility] Start: 03-09-2024 End: 03-09-2024 ambulatory JOSE R DODD Not Available Start: 03-06-2024 End: 03-06-2024 ambulatory AUGUSTINE Kelsey ZENA Not Available Start: 02-27-2024 End: 02-27-2024 ambulatory AUGUSTINE Kelsey OMERCATHLEENYaquelin Not Available Start: 02-27-2024 End: 02-27-2024 ambulatory DO Augustine Ball Work Phone: [facility] Work Phone: Start: 02-27-2024 End: 02-27-2024 Patient encounter procedure DO Augustine Ball Work Phone: [facility] Work Phone: Start: 02-24-2024 End: 02-24-2024 Admission to same day surgery center DO Augustine Ball Work Phone: [facility] [place] Start: 02-24-2024 End: 02-24-2024 ambulatory DO Augustine Ball Work Phone: [facility] Work Phone: Start: 02-16-2024 End: 02-16-2024 Patient encounter procedure DO Augustine Ball Work Phone: [facility] Work Phone: Start: 02-16-2024 End: 02-16-2024 ambulatory DO Augustine Ball Work Phone: [facility] Work Phone: Start: 02-16-2024 Encounter for preprocedural cardiovascular examination Augustine Freitas [facility] Start: 02-15-2024 End: 02-15-2024 ambulatory AUGUSTINE FREITAS Not Available Start: 02-15-2024 End: 02-15-2024 ambulatory CHRISTIN BOLTON Not Available Start: 02-09-2024 End: 02-09-2024 [facility] Start: 01-31-2024 End: 01-31-2024 ambulatory [facility] Work Phone: Start: 01-31-2024 End: 01-31-2024 Patient encounter procedure [facility] Work Phone: Start: 01-31-2024 Non-patient / Non-visit [facility] Work Phone: Start: 01-29-2024 Evaluation and management of inpatient MANESH JULIO [facility] Start: 01-27-2024 Evaluation and management of inpatient LIONEL [facility] Start: 01-26-2024 Evaluation and management of inpatient LION[facility] Start: 01-26-2024 Evaluation and management of inpatient LION[facility] Start: 01-25-2024 Evaluation and management of inpatient LIONEL [facility] Start: 01-25-2024 Evaluation and management of inpatient LION[facility] Start: 01-25-2024 Evaluation and management of inpatient [facility] Start: 01-25-2024 Evaluation and management of inpatient [facility] Start: 01-25-2024 Evaluation and management of inpatient [facility] Start: 01-24-2024 End: 01-29-2024 Evaluation and management of inpatient [facility] Start: 01-18-2024 Non-patient / Non-visit [facility] Work Phone: Start: 01-10-2024 End: 01-10-2024 ambulatory OSMAN Damon SHAH Not Available Start: 12-16-2023 Non-patient / Non-visit [facility] Work Phone: Start: 11-01-2023 End: 11-01-2023 ambulatory Augustine Metz Other [facility] Other Start: 11-01-2023 Telephone encounter Augustine Metz [facility] Start: 10-31-2023 End: 10-31-2023 ambulatory Augustine Metz Other [facility] Other Start: 10-31-2023 Office outpatient vi sit 25 minutes Augustine Metz [facility] Start: 10-28-2023 Bamboo flowsheet Jose R Green hler DO Work Phone: [facility] Start: 10-28-2023 Bamboo flowsheet Jose R Green hler DO Work Phone: [facility] Start: 10-24-2023 End: 10-24-2023 ambulatory [facility] Start: 09-16-2023 End: 01-24-2024 ambulatory [facility] Start: 09-06-2023 End: 09-06-2023 ambulatory [facility] Start: 07-11-2023 End: 07-11-2023 ambulatory Augustine Metz Other [facility] Other Start: 07-11-2023 Telephone encounter Augustine Metz [facility] Start: 07-10-2023 End: 07-10-2023 ambulatory Augustine Metz Other [facility] Other Start: 07-10-2023 Telephone encounter Augustine Metz [facility] Start: 07-05-2023 End: 07-05-2023 Emergency department patient visit Augustine Metz Facility:[facility] Start: 03-16-2023 ambulatory AZUL VIRGINIE [facility] Start: 03-16-2023 End: 03-16-2023 Office outpatient visit 15 minutes Azul Rachel INFORMATICS EDUCATOR-PASTOR Work Phone: [facility] Comment on above: Hx of total knee art hroplasty, right (Primary Dx) Start: 03-16-2023 End: 03-16-2023 Subsequent hospital visit by physician Azul LAN Work Phone: [facility] Start: 02-01-2023 ambulatory AUGUSTINE METZ Facilit y:[facility] Start: 01-24-2023 End: 02-23-2023 ambulatory SHAIKH Tiburcio PRICE Facility:[facility] Start: 01-22-2023 End: 01-22-2023 ambulatory Augustine Metz Other [facility] Other Start: 01-22-2023 Telephone encounter Augustine PHILIPPE [facility] Start: 2023 End: 01-22-[address] AUGUSTINE METZ Facility:[facility] Start: 01-05-2023 End: 01-05-2023 ambulatory Augustine Metz Other [facility] Other Start: 01-05-2023 Office outpatient vi sit 25 minutes Augustine Metz [facility] Start: 12-27-2022 End: 2023 ambulatory SHAIKH Tiburcio PRICE Facility:[facility] Start: 11-24-2022 End: 12-24-2022 ambulatory SHAIKH Tiburcio PRICE Facility:[facility] Start: 11-10-2022 End: 11-10-2022 ambulatory Augustine Metz Other [facility] Other Start: 11-10-2022 Telephone encounter Augustine PHILIPPE [facility] Start: 11-09-2022 Telephone encounter Augustine PHILIPPE [facility] Start: 11-09-2022 End: 11-10-2022 ambulatory AUGUSTINE METZ [facility] [email or web address] Other Start: 11-08-2022 ambulatory AUGUSTINE METZ Facilit y:[facility] Start: 11-01-2022 End: 11-02-[address] DOCTOR ABERNATHY Facility:[facility] Start: 10-28-2022 ambulatory AUGUSTINE METZ Facilit y:[facility] Start: 10-27-2022 End: 11-24-2022 ambulatory SHAIKH Tiburcio PRICE Facility:[facility] Start: 10-26-2022 End: 10-27-2022 ambulatory PUJA HOLBROOK MD Facility:[facility] Start: 10-19-2022 End: 10-20-[address] AUGUSTINE METZ Facility:[facility] Start: 10-04-2022 Damari Rojas Dept. of ADOP Start: 10-04-2022 End: 10-04-2022 ambulatory Augustine Metz Other [facility] Other Start: 10-04-2022 Office outpatient vi sit 25 minutes Augustine [facility] Start: 10-01-2022 ambulatory Ms. Osman Shah Facility:[id number] Start: 09-27-2022 End: 10-27-2022 ambulatory SHAIKH Tiburcio PRICE Facility:[facility] Start: 09-14-2022 Damari Rojas Dept. of ADOP Start: 09-09-2022 Pre-procedure evaluation check Augustine Metz Other [facility] Other Start: 09-07-2022 ambulatory Dr. Macario Bui Facility:[id number] Start: 08-26-2022 End: 09-26-2022 ambulatory SHAIKH Tiburcio PRICE Facility:H1 Start: 07-27-2022 End: 08-25-2022 ambulatory SHAIKH Tiburcio PRICE Facility:H1 Start: 07-13-2022 End: 07-14-[address] AUGUSTINE METZ Facility:H1 Start: 07-08-2022 ambulatory PASTOR BEDOYA [facility] Start: 07-08-2022 End: 07-08-2022 Office outpatient visit 15 minutes Pastor Bedoya MD Work Phone: [facility] Comment on above: Hx of total knee art hroplasty, right (Primary Dx) Start: 07-08-2022 End: 07-08-2022 Subsequent hospital visit by physician Pastor Bedoya MD Work Phone: [facility] Start: 06-28-2022 End: 06-29-[address] AUGUSTINE METZ Facility:H1 Start: 06-28-2022 End: 07-26-2022 ambulatory SHAIKH Tiburcio PRICE Facility:H1 Start: 06-15-2022 End: 06-16-[address] AUGUSTINE METZ Facility:H1 Start: 05-27-2022 End: 06-26-2022 ambulatory SHAIKH Tiburcio PRICE Facility:H1 Start: 05-03-2022 End: 05-03-2022 Patient encounter procedure Mc Blackman G[facility] Start: 04-26-2022 End: 04-27-[address] AUGUSTINE METZ Facility:H1 Start: 04-26-2022 End: 05-26-2022 ambulatory SHAIKH Tiburcio PRICE Facility:H1 Start: 04-19-2022 End: 05-08-[address] AUGUSTINE METZ Facility:H1 Start: 04-08-2022 ambulatory AZUL RACHEL [facility] Start: 04-08-2022 End: 04-08-2022 Postop follow up visit related to original px Azul LAN Work Phone: [facility] Comment on above: Hx of total knee art hroplasty, right (Primary Dx) Start: 04-08-2022 End: 04-08-2022 Subsequent hospital visit by physician Azul LAN Work Phone: [facility] Start: 04-07-2022 End: 04-08-[address] AUGUSTINE METZ Facility:H1 Start: 03-26-2022 End: 04-23-2022 ambulatory SHAIKH Tiburcio PRICE Facility:H1 Start: 03-15-2022 End: 03-16-2022 Patient encounter status Pastor Bedoya MD Work Phone: [facility] Start: 03-15-2022 End: 03-16-2022 Subsequent hospital visit by physician Pastor Bedoya MD Work Phone: [facility] Comment on above: S/P total knee arthr oplasty, right Start: 2022 End: 2022 Office outpatient new 60 minutes Pastor Bedoya MD Work Phone: [facility] Comment on above: Right knee pain, uns pecified chronicity (Primary Dx); Pain in prosthetic joint, sequela Start: 2022 End: 2022 Subsequent hospital visit by physician Pastor Bedoya MD Work Phone: [facility] Start: 11-04-2021 End: 11-04-2021 ambulatory Carmen Kahn Other [facility] Other Start: 11-04-2021 Office outpatient vi sit 25 minutes Carmen Kahn [facility] Start: 11-03-2021 End: 11-03-2021 ambulatory Carmen Kahn Other [facility] Other Start: 11-03-2021 Telephone encounter Carmen Kahn [facility] Start: 03-20-2020 End: 03-20-2020 Office outpatient visit 15 minutes Pastor Bedoya Work Phone: [facility] Comment on above: 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) Start: 03-20-2020 End: 03-20-2020 Subsequent hospital visit by physician Azul Rachel APRN-PASTOR Work Phone: [facility] Start: 06-13-2019 End: 06-14-2019 Patient encounter procedure GENE JONES Facility:[facility] Procedures Date Procedure Procedure Detail Performing Clinician Start: 01-03-2025 CRYOTHERAPY SKIN LESION Osman A Alyssa INFORMATICS EDUCATOR-PASTOR Work Phone: Start: 12-28-2024 End: 12-28-2024 Oph bmtry prtl coher intrfrmtry io lens pwr chhaya Jose R Dodd DO Work Phone: Start: 12-28-2024 Computerized ophthalmic imaging retina Jose R Dodd DO Work Phone: Start: 12-28-2024 End: 12-28-2024 [facility] medical xm&eval comprhnsv estab pt 1/> Age-related nuclear cataract of both eyes Jose R Dodd DO Work Phone: Comment on above: Age-related nuclear cataract of both eye s (Primary Dx); 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 Start: 10-22-2024 GLUCOSE POCT GLUCOMETERS Augustine fairchild DO Work Phone: Start: 10-22-2024 OR Nasal Excision CA W/Skin Graft Recon (Not Applicable) Augustine Metz DO Work Phone: Start: 10-22-2024 GLUCOSE POCT GLUCOMETERS Augustine Mcgrath ek DO Work Phone: Start: 10-17-2024 Basic metabolic panel calcium total Augustine Freitas DO Work Phone: Start: 10-17-2024 Complete blood count with white cell differential, automated Augustine Freitas DO Work Phone: Start: 10-16-2024 MOHS SURGERY Christin Bolton MD Work Phone: Start: 10-04-2024 SKIN / NAIL BIOPSY Osman Shah APRN-PASTOR Work Phone: Start: 09-07-2024 Computerized ophthalmic imaging retina Jose R Dodd DO Work Phone: Start: 09-07-2024 End: 09-07-2024 [facility] xm&eval intermediate estab pt 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 Jose R Dodd DO Work Phone: Comment on above: Advanced atrophic nonexudative age-relat ed macular degeneration of both eyes without subfoveal involvement (Primary Dx); Dry eyes; Age-related nuclear cataract of both eyes; Type 2 diabetes mellitus without complication, without long-term current use of insulin ([facility]) Start: 06-19-2024 End: 06-19-2024 CRYOTHERAPY SKIN LESION Osman Shah APRN-PASTOR Work Phone: Start: 06-08-2024 Computerized ophthalmic imaging retina Jose R Dodd DO Work Phone: Start: 06-08-2024 End: 06-08-2024 [facility]/> 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 Jose R Dodd DO Work Phone: Comment on above: Advanced atrophic nonexudative age-relat ed macular degeneration of both eyes without subfoveal involvement (Primary Dx); Age-related nuclear cataract of both eyes; Dry eyes Start: 02-24-2024 Excision of lesion of cheek DO Augustine Ball Work Phone: Start: 10-28-2023 Computerized ophthalmic imaging retina Jose R Dodd DO Work Phone: Start: 10-28-2023 End: 10-28-2023 [facility]/> 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 [...] End: 03-15-2022 Arthrp kne condyle&platu medial&lat compartments Psator Bedoya MD Work Phone: Start: 03-15-2022 Prothrombin time Azul Rachel INFORMATICS EDUCATOR-PASTOR Work Phone: Start: 03-15-2022 Cultyp nuc acid amp prb cult/isolate ea marisela Rachel INFORMATICS EDUCATOR-PASTOR Work Phone: Start: 03-15-2022 Sars-cov-2 detection by dna/rna Azul ramirez INFORMATICS EDUCATOR-PASTOR Work Phone: Start: 03-15-2022 Antibody screen rbc each serum technique Pastor Bedoya MD Work Phone: Start: 03-15-2022 End: 03-15-2022 Thromboplastin time partial plasma/whole blood Azul Rachel INFORMATICS EDUCATOR-PASTOR Work Phone: Start: 01-10-2020 Renal lithotripsy Mc ALMONTE Start: 10-23-2019 Cystoscopic removal of ureteric stent Mc ALMONTE Start: 09-26-2019 Endoscopic retrograde cholangiopancreatography Mc ALMONTE Cholecystectomy Mc [facility]ART Colonoscopy Mc ALMONTE Depression screening Ramirez Metz Other Total knee replacement Ro ALMONTE Plan of Treatment Date Care Activity Detail Author Start: 07-04-2025 End: 07-04-2025 Patient encounter procedure 07/04/2025 9:10 AM EDT Office Visit [facility] [address] [place] [address] Osman Shah INFORMATICS EDUCATOR-PASTOR [address] [place] [address] [facility] Start: 02-26-2025 End: 02-26-2025 Patient encounter procedure 02/26/2025 10:15 AM EDT Office Visit [facility] [address] [place] [address] Jose R Dodd, DO [address] [place] [address] [facility] Start: 01-03-2025 End: 01-03-2025 Patient encounter procedure [facility] Comment on above: Arrived Start: 01-01-2025 End: 01-01-2025 Patient encounter procedure [facility] [place] Comment on above: Arrived Start: 12-28-2024 End: 12-28-2024 Patient encounter procedure [facility] Comment on above: Arrived Start: 10-30-2024 End: 10-30-2024 Patient encounter procedure [facility] [place] Comment on above: Arrived Start: 10-22-2024 End: 10-22-2024 [facility] Start: 10-17-2024 End: 10-17-2024 Patient encounter procedure [facility] [place] Comment on above: Arrived Start: 10-04-2024 End: 10-04-2024 Patient encounter procedure [facility] Comment on above: Arrived Start: 10-03-2024 End: 10-03-2024 Patient encounter procedure [facility] [address] [facility] Comment on above: Arrived Start: 09-07-2024 End: 09-07-2024 Patient encounter procedure [facility] Comment on above: Arrived Start: 07-11-2024 End: 07-11-2024 Patient encounter procedure 07/11/2024 9:40 AM EDT Office Visit [facility] [address] [place] [id number] Osman Shah, INFORMATICS EDUCATOR-PASTOR [address] [place] [address] [facility] Start: 06-27-2024 End: 06-27-2024 Patient encounter procedure 06/27/2024 9:00 AM EDT Office Visit [facility] [address] [place] [address] Simran Muniz NP [address] [place] [address] Arrived [facility] [address] [facility] Comment on above: Arrived Start: 06-19-2024 End: 06-19-2024 Patient encounter procedure 06/19/2024 9:25 AM EDT Office Visit [facility] [address] [place] [address] Osman Shah, INFORMATICS EDUCATOR-PASTOR [address] [place] [address] Arrived [facility] Comment on above: Arrived Start: 06-08-2024 End: 06-08-2024 Patient encounter procedure 06/08/2024 10:30 AM EDT Office Visit [facility] [address] [place] [phone] Jose R Dodd DO [address] [place] [address] Arrived [facility] Comment on above: Arrived Start: 05-27-2024 Influenza vaccination Influenza Vaccine (#1) [facility] Start: 02-24-2024 End: 02-24-2024 [facility] Start: 01-10-2024 End: 01-10-2024 Patient encounter procedure 01/10/2024 9:35 AM EDT Office Visit [facility] [address] [place] [address] Osman Shah, INFORMATICS EDUCATOR-PASTOR [address] [place] [address] [facility] Start: 10-28-2023 End: 10-28-2023 Patient encounter procedure 10/28/2023 9:30 AM EST Procedure Visit [facility] [address] [place] [phone] Jose R Dodd DO [address] [place] [address] Arrived [facility] Comment on above: Arrived Start: 05-27-2023 Influenza vaccination Influenza Vaccine (#1) [facility] Start: 03-16-2023 End: 03-16-2023 Patient encounter procedure 03/16/2023 Office Visit Orthopaedics Azul Rachel, INFORMATICS EDUCATOR-PASTOR [address] [place] [address] [facility] Start: 10-22-2022 COVID-19 VACCINE (6 - Pfizer series) COVID-19 VACCINE (6 - Pfizer series) [facility] Start: 08-21-2022 Hemoglobin A1c measurement HBA1C TEST [facility] Start: 07-08-2022 End: 07-08-2022 Patient encounter procedure 07/08/2022 Office Visit Orthopaedics Pastor Bedoya MD [address] [place] [address] [facility] Start: 05-27-2022 Influenza vaccination [facility] Start: 04-08-2022 End: 04-08-2022 Patient encounter procedure 04/08/2022 Office Visit Orthopaedics Azul Rachel, INFORMATICS EDUCATOR-PASTOR [address] [place] [address] [facility] Start: 02-18-2022 End: 02-18-2022 ambulatory 02/18/2022 Pre-Operative Nurse Assessment Internal Medicine [facility] Pre Admission Start: 05-27-2020 Influenza vaccination INFLUENZA VACCINE (Season Ended) [facility] Start: 12-25-2014 Pneumococcal vaccination PNEUMOCOCCAL VACCINE SERIES (2 - PCV) [facility] Start: 12-25-2014 Pneumococcal Vaccine: 65+ Years (2 - PCV) Pneumococcal Vaccine: 65+ Years (2 - PCV) [facility] Start: 12-25-2014 Pneumococcal Vaccine: 65+ Years (2 of 2 - PCV) Pneumococcal Vaccine: 65+ Years (2 of 2 - PCV) [facility] Start: 2011 Abdominal aortic aneurysm screening ABDOMINAL AORTIC ANEURYSM HIGH RISK SCREEN [facility] Start: 2011 Pneumococcal vaccination [facility] stem Start: 01-22-1996 Colonoscopy COLORECTAL CANCER SCREENING DISCUSSION [facility] Start: 01-22-1996 Prostate specific antigen measurement PROSTATE CANCER SCREENING DISCUSSION [facility] Start: 01-22-1996 Zoster vaccine hzv live for subcutaneous use ZOSTER (SHINGLES) VACCINE (1 of 2) [facility] Start: 1991 Colonoscopy COLORECTAL CANCER SCREENING DISCUSSION [facility] Start: 1991 Screening for malignant neoplasm of colon COLORECTAL CANCER SCREENING DISCUSSION [facility] Start: 1986 Fasting lipid profile LIPID SCREENING [facility] Start: 1965 Third diphtheria, tetanus and acellular pertussis (DTaP) vaccination TDAP (ADULT) [facility] Start: 01-22-1964 Tetanus vaccination TETANUS [facility] Start: 1951 COVID-19 VACCINE (#1) COVID-19 VACCINE (#1) [facility] [place] [facility] tem Start: 1946 COVID-19 VACCINE (#1) COVID-19 VACCINE (#1) [facility] tem Start: 1946 Diabetic foot examination DIABETIC FOOT EXAM [facility] Start: 1946 Diabetic retinal eye exam EYE EXAM [facility] Start: 1946 Glaucoma screening EYE EXAM [facility] Start: 1946 Hepatitis B vaccination HEP B VACCINE (1 of 3 - 3-dose series) [facility] Start: 1946 Hepatitis C antibody, confirmatory test HEPATITIS C VIRUS SCREENING [facility] Start: 1946 Hepatitis C screening HEPATITIS C VIRUS SCREENING [facility] Start: 1946 Lipid panel LIPIDS [facility] Start: 1946 LIPIDS LIPIDS [facility] Start: 1946 Microalbumin measurement, urine, quantitative URINE MICROALBUMIN TEST [facility] Start: 1946 Potassium [Moles/Vol] POTASSIUM [facility] Start: 1946 Tetanus vaccination TETANUS [facility] Start: 1946 Urine screening for protein URINE MICROALBUMIN TEST [facility] Dermatopathology exam Dermatopat hology exam Pathology and Cytology Timed Neoplasm of unspecified behavior of bone, soft tissue, and skin Release Upon Ordering for 1 Occurrences starting 10/04/2024 [facility] Work Phone: Comment on above: Release Upon Ordering for 1 Occurrences starting 10/04/2024 Patient Education Know your Meds [facility] Work Phone: Patient referral [facility] Work Phone: Radiography for bone length studies XR BONE LENGTH STUDY Imaging Routine Hx of total knee arthroplasty, right 07/08/2022 11:01 AM EDT [facility] Work Phone: SURGICAL PATHOLOGY REQUEST SURGICAL PATHOLOGY REQUEST Surg Path Routine Osteoarthritis of right knee, unspecified osteoarthritis type Release Upon Ordering for 1 Occurrences starting 03/15/2022 [facility] Work Phone: Comment on above: Release Upon Ordering for 1 Occurrences starting 03/15/2022 X-ray of left knee XR KNEE LEFT 3 VIEWS Imaging Routine History of revision of total replacement of left knee joint 03/20/2020 10:48 AM EDT [employer] XR Knee - left 3 Views XR KNEE L EFT 3 VIEWS Imaging Routine Pain in prosthetic joint, sequela 2022 1:09 PM EDT [employer] XR Knee - right 3 Views XR KNEE RIGHT 3 VIEWS Imaging Routine Hx of total knee arthroplasty, right 04/08/2022 10:04 AM EDT [employer] XR Knee - right 3 Views XR KNEE RIGHT 3 VIEWS Imaging Routine Hx of total knee arthroplasty, right 07/08/2022 11:01 AM EDT [employer] XR Knee - right 3 Views XR KNEE RIGHT 3 VIEWS Imaging Routine Hx of total knee arthroplasty, right 03/16/2023 11:03 AM EDT [employer] XR Knee - right 4 Views XR KNEE RIGHT 4+ VIEWS Imaging Routine Right knee pain, unspecified chronicity 2022 12:51 PM EDT [employer] [facility] Immunizations Immunization Date Immunization Notes Care Provider Dunia burrell 08-21-2024 COVID-19 (PFIZER) 12Y and older Augustine Metz DO Work Phone: [facility] 07-09-2024 influenza, high dose seasonal, preservative-free [facility] 12-27-2023 COVID-19 (PFIZER) 12Y and older DO Augustine Metz Work Phone: [facility] 07-08-2023 influenza virus vaccine, unspecified formulation [facility] 07-08-2023 influenza, high dose seasonal, preservative-free Augustine Metz Other [facility] Other 06-21-2023 COVID-19 (PFIZER) 12Y and older DO Augustine Metz Work Phone: [facility] 03-03-2023 zoster vaccine recombinant Augustine Metz Other [facility] 01-01-2023 zoster vaccine recombinant Augustine Metz Other [facility] 06-29-2022 influenza, high dose seasonal, preservative-free Augustine Metz Other [facility] Other 06-29-2022 influenza virus vaccine, split virus (incl. purified surface antigen) Augustine Metz Other [facility] Other 06-29-2022 Influenza, Seasonal, Quadrivalent, Adjuvanted Jose Rtc Dodd DO Work Phone: [facility] 06-29-2022 influenza virus vaccine, unspecified formulation Jose R Verdeer DO Work Phone: [facility] 06-22-2022 COVID-19 Pfizer (bivalent) Augustine Metz Other [facility] 04-17-2022 COVID-19 Comirnaty (Pfizer) Tri-Sucrose 12+ DO Augustine Metz Work Phone: [facility] 07-15-2021 influenza virus vaccine, split virus (incl. purified surface antigen) Augustine Metz Other [facility] Other 07-15-2021 influenza virus vaccine, unspecified formulation [facility] 07-15-2021 Seasonal trivalent influenza vaccine, adjuvanted, preservative free Jose R Zahler DO Work Phone: [facility] 06-22-2021 COVID-19 Vaccine Pfi zer - Documentation Purposes Only Augustine Metz Other [facility] 11-20-2020 COVID-19 Vaccine Pfi zer - Documentation Purposes Only Augustine Metz Other [facility] 10-30-2020 COVID-19 Vaccine Pfi zer - Documentation Purposes Only Augustine Metz Other [facility] 07-09-2020 influenza, high dose seasonal, preservative-free Jose R Zahler DO Work Phone: [facility] 07-01-2020 influenza virus vaccine, split virus (incl. purified surface antigen) Augustine Metz Other [facility] Other 07-01-2020 influenza virus vaccine, unspecified formulation [facility] 07-06-2019 influenza virus vaccine, split virus (incl. purified surface antigen) Augustine Metz Other [facility] Other 07-06-2019 influenza virus vaccine, unspecified formulation [facility] 07-12-2018 influenza virus vaccine, split virus (incl. purified surface antigen) Augustine Metz Other [facility] Other 07-12-2018 influenza virus vaccine, unspecified formulation [facility] 07-12-2018 Seasonal trivalent influenza vaccine, adjuvanted, preservative free Jose R Zahler DO Work Phone: [facility] 07-25-2017 influenza virus vaccine, split virus (incl. purified surface antigen) Augustine Metz Other [facility] Other 07-25-2017 influenza virus vaccine, unspecified formulation [facility] 07-25-2017 influenza, high dose seasonal, preservative-free Jose R Zahler DO Work Phone: [facility] 07-07-2016 influenza virus vaccine, split virus (incl. purified surface antigen) Augustine Metz Other [facility] Other 07-07-2016 influenza virus vaccine, unspecified formulation [facility] 07-07-2016 influenza, high dose seasonal, preservative-free Jose R Verdeer DO Work Phone: [facility] 07-18-2015 pneumococcal conjuga te vaccine, 13 valent Augustine Metz Other [facility] 06-11-2015 influenza virus vaccine, split virus (incl. purified surface antigen) Augustine Metz Other [facility] Other 06-11-2015 influenza virus vaccine, unspecified formulation [facility] 05-27-2015 influenza, injectabl e, madin emilee canine kidney, preservative free Jose R Dodd DO Work Phone: [facility] 06-17-2014 tetanus and diphther ia toxoids, adsorbed, preservative free, for adult use (5 Lf of tetanus toxoid and 2 Lf of diphtheria toxoid) Augustine Metz Other [facility] 12-25-2013 pneumococcal polysaccharide vaccine, 23 valent Jose R Verdeer DO Work Phone: [facility] 08-28-2013 pneumococcal polysaccharide vaccine, 23 valent Augustine Metz Other [facility] 07-26-2013 tetanus and diphther ia toxoids, adsorbed, preservative free, for adult use (5 Lf of tetanus toxoid and 2 Lf of diphtheria toxoid) Augustine Metz Other [facility] 07-18-2013 zoster vaccine, live Ramirez Metz Other [facility] 1946 pneumococcal conjuga te vaccine, 7 valent [facility] Payers Date Payer Category Payer Self-pay [id number] 2022 Private Health Insurance [employer] [id number] 2017 Unknown [employer] M MO TRADITIONAL [id number] 2017-Present [id number] 2010 Medicare MEDICARE MEDICAR E A AND B [id number] 2010-Present [place], [place] [id number]. [id number] 2008 Medicare [id number] [id number]. [id number] 2008 Unknown [id number]. 1.13.172.2. [id number] 1959 Medicare [id number] 2.16.840.1.408912.19 1959 Unknown [id number] 1946 Unknown [id number] 2.16.840.1.362146.3.579.2. 647 1946 Unknown [id number] 2.16.840.1.889980.3.579.2. 356 1946 Unknown [id number] 2.16.840.1.143896.3.579.2. 356 1946 Unknown [id number] 2.16.840.1.965361.3.579.2. 159 1946 Unknown [id number] 2.16.840.1.998263.3.579.2. 159 1946 Unknown [id number] 2.16.840.1.535471.3.579.2. 159 1946 Unknown [id number] 2.16.840.1.962100.3.579.2. 159 1946 Unknown [id number] 2.16.840.1.502134.3.579.2. 159 1946 Unknown [id number] 2.16.840.1.880758.3.579.2. 593 1946 Unknown [id number] 2.16.840.1.842654.3.579.2. 593 1946 Unknown [id number] 2.16.840.1.688740.3.579.2. 593 1946 Unknown [id number] 2.16.840.1.501845.3.579.2. 593 1946 Unknown [id number] 2.16.840.1.649770.3.579.2. 593 1946 Unknown [id number] 2.16.840.1.214210.3.579.2. 593 1946 Unknown [id number] 2.16.840.1.379956.3.579.2. 593 1946 Unknown [id number] 2.16.840.1.407310.3.579.2. 593 1946 Unknown [id number] 2.16.840.1.911845.3.579.2. 593 1946 Unknown [id number] 2.16.840.1.307103.3.579.2. 593 1946 Unknown [id number] 2.16.840.1.656260.3.579.2. 593 1946 Unknown [id number] 2.16.840.1.065310.3.579.2. 593 1946 Unknown [id number] 2.16.840.1.185812.3.579.2. 593 1946 Unknown [id number] 2.16.840.1.392042.3.579.2. 593 1946 Unknown [id number] 2.16.840.1.360475.3.579.2. 593 1946 Unknown [id number] 2.16.840.1.234273.3.579.2. 593 1946 Unknown [id number] 2.16.840.1.540616.3.579.2. 593 1946 Unknown [id number] 2.16840.1.527368.3.579.2. 593 1946 Unknown [id number] 2.16.840.1.727288.3.579.2. 593 1946 Unknown [id number] 2.16.840.1.486840.3.579.2. 593 1946 Unknown [id number] 2.16.840.1.838273.3.579.2. 983 1946 Unknown [id number] 2.16840.1.235791.3.579.2. 983 1946 Unknown [id number] 2.16.840.1.440479.3.579.2. 983 1946 Unknown [id number] 2.16.840.1.016034.3.579.2. 983 1946 Unknown [id number] 2.16.840.1.232087.3.579.2. 983 1946 Unknown [id number] 2.16.840.1.012954.3.579.2. 983 1946 Unknown [id number] 2.16.840.1.727914.3.579.2. 718 1946 Unknown [id number] 2.16.840.1.310962.3.579.2. 1258 1946 Unknown [id number] 2.16.840.1.101777.3.579.2. 1258 1946 Unknown [id number] 2.16.840.1.214238.3.579.2. 1258 1946 Unknown [id number] 2.16.840.1.175652.3.579.2. 1258 1946 Unknown [id number] 2.16840.1.955765.3.579.2. 1258 1946 Unknown [id number] 2.840.1.205795.3.579.2. 1258 1946 Unknown [id number] 2.840.1.825524.3.579.2. 1258 1946 Unknown [id number] 2.840.1.023580.3.579.2. 1258 1946 Unknown [id number] 2.16.840.1.294251.3.579.2. 1258 1946 Unknown [id number] [id number]. 1258 1945 Unknown [id number] 2.16840.1.481020.3.579.2. 1258 1945 Unknown [id number] 2.16.840.1.767463.3.579.2. 1258 1945 Unknown [id number] 2.16.840.1.446422.3.579.2. 1258 1945 Unknown [id number] 2.16.840.1.946823.3.579.2. 1258 1945 Unknown [id number] 2.16.840.1.186221.3.579.2. 1259 1945 Unknown [id number] 2.16.840.1.316544.3.579.2. 1259 1945 Unknown [id number] 2.16.840.1.456600.3.579.2. 1259 1945 Unknown [id number] 2.16.840.1.494473.3.579.2. 125 1945 Unknown [id number] 2.16.840.1.623117.3.579.2. 1259 1945 Unknown [id number] 2.16.840.1.476447.3.579.2. 1259 Medicare [id number] Unknown [facility] [id number] Unknown [id number] 2.16.840.1.722287.3.579.2. 531 Unknown [id number] 2.16.840.1.975111.3.579.2. 531 Unknown [id number] 2.16.840.1.839071.3.579.2. 531 Unknown [id number] 2.16.840.1.904925.3.579.2. 531 Social History Date Type Detail Facility Start: 03-20-2020 End: 10-22-2024 Tobacco smoking status [facility] Former smoker [employer] End: 02-08-1983 History of tobacco use Current smoker [facility] Start: 03-20-2020 End: 07-08-2022 Tobacco use and exposure Former user [employer] End: 02-08-2003 History of tobacco use User of smokeless tobacco [facility] Start: 03-20-2020 End: 03-16-2023 Alcohol intake Current non-drinker of alcohol (finding) [facility] Start: 1945 Sex Assigned At Not on file [facility] [employer] Start: 03-05-2022 End: 03-15-2022 Exposure to SARS-CoV-2 (event) Not sure [facility] Start: 03-16-2023 End: 01-03-2025 Sex Assigned At [facility] Other Start: 05-03-2022 End: 12-16-2023 Tobacco smoking status Never smoked tobacco (finding) [facility] End: 02-08-1983 History of tobacco use Cigarette Smoker [facility] Start: 09-14-2022 Dept. of D ermatology Start: 1945 Sex Assigned At Male F [facility] Start: 03-16-2023 End: 01-03-2025 History of Social function [facility] Gender identity Identifies as ma le gender (finding) [facility] Start: 08-29-2023 End: 01-03-2025 Alcohol intake Lifetime non-drinker (finding) [facility] Start: 06-23-2023 Alcohol Comment caffeine: soda [facility] Start: 10-10-2024 End: 01-09-2025 Sex Male (finding) [facility] Medical Equipment Procedure Code Equipment Code [...] 05-03-2022 Functional Status N/A [facility] Clinical Notes 11-04-2021 to 01-03-2025 Osman Shah, DEQUAN-PASTOR - 01/03/2025 9:20 AM Chalo Dodd, DO - 12/28/2024 9:45 AM Bassam Freitas, DO - 01/01/2025 10:30 AM Bassam Laure Freitas DO - 01/01/2025 10:30 AM EDT Note Date & Type Note Facility 01-03-2025 History of Presen t illness Narrative Images from the original note were not included. Skin Check Location: Patient requests a full body skin examination Dermatologic history: history of Actinic Keratosis, history of Basal Cell Carcinoma, history of Squamous Cell Carcinoma, history of Melanoma Last visit: 10/16/2024 mohs completed on dorsum of nose(BCC) Melanoma History: Date of Melanoma Dx: 07/2022 Melanoma Details: Melanoma in situ Melanoma Treatment: Excision performed by Macario Bui MD Location: Right latter day Established patient Patient denies loss of appetite, weight loss, fatigue, and chills All pertinent medical history, medications, and allergies were reviewed. General Exam: alert, oriented to person, place, and time, normal affect, well appearing Unaccompanied Areas not examined despite medical recommendation: Scalp, Examined Right leg Examined Head, Face Examined Left leg Examined Neck Examined Right foot Examined Chest Examined Left foot Examined Back Examined Buttocks Examined Abdomen Examined Digits,nails: Examined Right arm Examined Left arm Examined Lymphatics: Examined Hands Examined no cervical lymphadenopathy, no supraclavicular lymphadenopathy, no axillary lymphadenopathy 1. Melanocytic nevus of trunk Scattered benign appearing, regular brown to light brown melanocytic papules and macules with similar morphology Counseled regarding these benign growths. Rarely, a nevus can develop into malignant melanoma, so any changing nevi should be promptly re-evaluated. 2. Melanocytic nevus of lower extremity, unspecified laterality Scattered benign appearing, regular brown to light brown melanocytic papules and macules with similar morphology Counseled regarding these benign growths. Rarely, a nevus can develop into malignant melanoma, so any changing nevi should be promptly re-evaluated. 3. Seborrheic keratosis Stuck on verrucous, variably pigmented papules and plaques. Patient was counseled regarding these benign growths. Removal is normally not necessary, but they may be removed if they are symptomatic or for cosmetic reasons. 4. Lentigines Scattered whalen macules in sun-exposed areas. The patient was informed that lentigines are benign pigmented lesions that occur on sun-exposed and sun-damaged skin. No treatment is necessary. Recommended regular use of broad spectrum sunscreen SPF 30 or higher 5. Capillary angioma Trunk Scattered morejon-red papule(s). The patient was informed that angiomas are benign growths on the the skin. No treatment is necessary. 6. Telangiectasia of face Left Tip of Nose Superficial blood vessels Benign. Counseled on condition, reassurance given. No treatment necessary 7. Sebaceous hyperplasia of face Mid Forehead Small yellow papules with a central dell. Reassure, benign. Discussed these can be removed for a cosmetic fee with the hyfrecator if desired. 8. History of malignant melanoma of skin Right [place] No evidence of recurrence at melanoma scar. The patient was counseled that scars from excisional sites of melanoma should be monitored closely for recurrence. The patient was instructed to contact the office for any new, changing, or symptomatic moles. The patient was also instructed to contact the office for any new lesions that develop within or around the previous melanoma scar. 9. History of basal cell carcinoma dorsum of nose No evidence of recurrence at BCC scar. The patient was counseled that scars from excisional sites of nonmelanoma skin cancers should be monitored closely for recurrence. The patient was instructed to contact the office for any new, changing, or symptomatic moles. The patient was also instructed to contact the office for any new lesions that develop within or around the previous surgery scar. 10. Actinic keratosis (15) Left Dorsal Hand (6), Left Ear, Mid Frontal Scalp, Mid Occipital Scalp (3), Mid Parietal Scalp (2), Right Dorsal Hand, Right Ear Erythematous scaly papules Patient was counseled regarding these sun-induced growths that can develop into squamous cell carcinoma if left untreated. Discussed treatment with cryotherapy. It was emphasized that any treated lesions that fail to resolve should be re-evaluated. Cryotherapy performed today; see procedure note Diagnosis: Actinic keratosis Indication: Precancerous Location: see skin exam Consent: Verbal consent was obtained and risks were discussed, including, but not limited to risks of scarring, darker or supervisor finishing department pigmentary changes, recurrence, incomplete removal and infection. Method: Liquid nitrogen was used to treat the lesion(s) with two 5-10 second freeze-thaw cycles. Number of lesions treated: 15 Post-procedure instructions: Instructions were given orally and in writing. The office will be contacted if the lesion fails to resolve despite treatment, or if a side effect develops such as abnormal crusting, scabbing, redness or tenderness Cryotherapy, skin lesion - Left Dorsal Hand (6), Left Ear, Mid Frontal Scalp, Mid Occipital Scalp (3), Mid Parietal Scalp (2), Right Dorsal Hand, Right Ear Next Visit: 6 months skin exam documented in this encounter [facility] 12-28-2024 Note Right Eye Quality was poor. Scan locations included subfoveal. Progression has been stable. Findings include abnormal foveal contour. Left Eye Quality was good. Scan locations included subfoveal. Progression has been stable. Findings include abnormal foveal contour. Notes Macular volume loss both eyes (OU). [facility] 12-28-2024 History of Presen t illness Narrative Images from the original note were not included. Subjective Patient ID: Tito Goncalves is a 79 y.o. male. Chief Complaint Follow-up; Macular Degeneration; Cataract HPI Macular Degeneration In both eyes. This started years ago. Vision is stable. Cataract In both eyes. Associated symptoms include blurred vision, glare and haloes. Severity is moderate. Onset was gradual. Frequency is constant. Context: mid-range vision, reading, watching TV and computer work. Since onset it is gradually worsening. Affected activities include driving, watching TV and daily activities. Treatments tried include artificial tears and glasses. Response to treatment was mild improvement. Comments 3 mo Fu with OCT Mac and optic nerve (ON) for management of age-related macular degeneration (ARMD) both eyes (OU) and diabetes mellitus (DM) II. Last A1c 7.2, not using any drops. Pt followed for Cataract both eyes (OU), NOELLE and age-related macular degeneration (ARMD). Pt states that when driving, distance isn't as clear. Road signs for example. Both eyes (OU), since last exam. Last edited by Jose R Dodd DO on 12/28/2024 1:56 PM. Current Outpatient Medications (Ophthalmic Agents) Medication Sig Dispense Refill Ykohovgamdl-Bdtqqmxl-Bkimqvnuk 1-0.5-0.075 % solution Administer 1 drop into affected eye(s) in the morning and 1 drop at noon and 1 drop in the evening and 1 drop before bedtime. 10 mL 1 No current facility-administered medications for this visit. (Ophthalmic Agents) Current Outpatient Medications (Other) Medication Sig Dispense Refill acetaminophen (Tylenol) 500 MG tablet Take by mouth every 6 (six) hours if needed amiodarone (Pacerone) 200 MG tablet Take 200 mg by mouth in the morning. amLODIPine (Norvasc) 5 MG tablet Take 5 mg by mouth Daily aspirin 81 MG EC tablet Take 1 tablet by mouth in the morning. atorvastatin (Lipitor) 10 MG tablet Take 1 tablet by mouth in the evening. benazepril (Lotensin) 20 MG tablet benzonatate (Tessalon) 100 MG capsule Take 100 mg by mouth 3 (three) times a day as needed carvedilol (Coreg) 12.5 MG tablet carvedilol (Coreg) 6.25 MG tablet clindamycin (Cleocin) 300 MG capsule 1 capsule by mouth twice a day for 10 days 20 capsule 0 clonazePAM (KlonoPIN) 1 MG tablet 1-2 tablet at bedtime 180 tablet 0 clopidogrel (Plavix) 75 MG tablet Take 75 mg by mouth Daily gabapentin (Neurontin) 300 MG capsule HYDROcodone-acetaminophen ([place]) 7.5-325 MG tablet levETIRAcetam (Keppra) 500 MG tablet meloxicam (Mobic) 15 MG tablet Multiple Vitamin (Multi Vitamin) tablet Take by mouth mupirocin (Bactroban) 2 % ointment omeprazole (PriLOSEC) [address] capsule Take 1 capsule every day by oral route for 90 days. pantoprazole (ProtoNix) 40 MG EC tablet pioglitazone-metFORMIN (ACTOPlus Met) 15-850 MG tablet Take 1 tablet by mouth in the morning. propafenone (Rythmol) 150 MG tablet Take by mouth. traZODone (Desyrel) 50 MG tablet Take 1 tablet by mouth at bedtime. No current facility-administered medications for this visit. (Other) Past Medical History: Diagnosis Date Abrasion of ear canal 07/11/2024 Actinic keratoses Anemia 07/11/2024 Arthritis Atrial fibrillation (CMS/HCC) Basal cell carcinoma (BCC) of left preauricular region Mohs 10/21/2022 Chest pain 07/11/2024 COVID-19 vaccine administered x 2 ([employer] Diabetes (CMS/HCC) Diverticulosis of colon 10/17/2012 Family history of malignant neoplasm of skin 02/15/2024 Family history of malignant neoplasm of skin 09/06/2023 Gastroesophageal reflux disease without esophagitis 03/15/2022 GERD (gastroesophageal reflux disease) Glaucoma 09/06/2023 Glycosuria 02/15/2024 Glycosuria 09/06/2023 HTN (hypertension) ([facility]) Hypercholesteremia ([facility]) Hyperlipidemia ([facility]) Hypertension ([facility]) Hypertensive disorder ([facility]) 06/10/2014 Macular degeneration Malignant neoplasm of skin 10/17/2012 Melanoma ([facility]) Melanoma in situ of face ([facility]) 02/15/2024 Mitral valve disorder 09/17/2013 MILD (ECHO 05/09) Obstructive sleep apnea syndrome 09/17/2013 Paroxysmal atrial fibrillation ([facility]) 09/17/2013 PAF; CHADS2 SCORE 2 (HTN, DM). ON COUMADIN. 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 01/28/2024 Stage 3a chronic kidney disease (HCC) ([facility]) 03/15/2022 Subdural hematoma ([facility]) 2023 Type 2 diabetes mellitus without complication, without long-term current use of insulin 10/17/2012 Allergies Allergen Reactions Iodine Anaphylaxis and Swelling Other Reaction(s): Unknown, Unknown Mouth swelled shut Mouth swelled shut Mouth swelled shut Penicillins Hives Other Reaction(s): Unknown Shellfish Allergy Swelling and Other Other Other Penicillin G Hives Other Reaction(s): Unknown, Unknown Penicillin V Shellfish-Derived Products Swelling Sulfa Antibiotics Rash and Swelling Other Reaction(s): Unknown Review of Systems Constitutional: Negative. HENT: Negative. Eyes: Negative. Respiratory: Negative. Cardiovascular: Negative. Gastrointestinal: Negative. Genitourinary: Negative. Musculoskeletal: Negative. Skin: Negative. Neurological: Negative. Psychiatric/Behavioral: Negative. Hematological: Negative. Endocrine: Negative. Allergic/Immunologic: Negative. Objective Base Eye Exam Visual Acuity (Snellen - Linear) Right Left Dist cc 20/40 20/80 Correction: Glasses Tonometry (Applanation, 10:29 AM) Right Left Pressure 16 18 Pupils Pupils Right PERRL Left PERRL Visual [place] Left Right Full Full Extraocular Movement Right Left Full Full Neuro/Psych Oriented x3: Yes Dilation Both eyes: 1.0% Mydriacyl @ 9:49 AM Additional Tests Glare Testing High Right 20/100 Left 20/400 Slit Lamp and Fundus Exam External Exam Right Left External Brow ptosis Brow ptosis Slit Lamp Exam Right Left Lids/Lashes Blepharitis, Dermatochalasis - upper lid, Ptosis Blepharitis, Dermatochalasis - upper lid, Ptosis Conjunctiva/Sclera White and quiet White and quiet Cornea Decreased tear film Decreased tear film Anterior Chamber Deep and quiet Deep and quiet Iris Round and reactive Round and reactive Lens 2+ Nuclear sclerosis, 1+ Cortical cataract 2+ Nuclear sclerosis, 1+ Cortical cataract Anterior Vitreous Normal Normal Fundus Exam Right Left Disc Normal Normal Macula Soft drusen, Retinal pigment epithelial mottling Soft drusen, Retinal pigment epithelial mottling, Retinal pigment epithelial atrophy, 1/2 optic disc diameter (DD) area of atrophy Vessels Normal Normal Periphery Normal Normal Refraction Final Rx Sphere Cylinder [place] Dist VA Add Right +2.25 -1.25 085 20/40 +2.75 Left +2.25 -1.25 085 20/60 +1.75 Expiration Date: 12/28/2025 Assessment/Plan Diagnoses and all orders for this visit: Age-related nuclear cataract of both eyes - Visually Significant Cataract, OU: I discussed the risks, benefits, alternatives, and expectations of cataract surgery. A complete ophthalmic exam was performed and it was determined that the cataracts were a primary source of vision decline, affecting activities of daily living, necessitating removal. Limited vision post-surgery may occur with pre-existing conditions affecting other areas of the eye or the brain was explained and the patient displayed an understanding. The overall objective is to improve ADLs, not eliminate glasses or restore vision to 20/20. Tests were reviewed - the different lens options were explained including the [id number] fees for any upgrades. Intraocular lens (IOL) selection may be altered either prior to or during the procedure based on the doctor's discretion including reverting to a traditional intraocular lens (IOL). They understood that there will exist the potential of glasses prescription need post surgery for near, distance or possibly both. The patient stated a full understanding and a desire to proceed with the procedure. The patient received cataract measurements and had any additional questions answered. - A complete exam was performed including a physical exam: General: AAOx3 and NAD, Lungs: Clear, Heart: RRR, Abdomen: S/NT/ND, Extremities: no pitting edema. - Coordination of care will be shared with Dr. Barboza. Cataract Surgery for OS will take place - 02/04 and OD - 02/25. 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 macular degeneration of [...] new onset of decreased vision or metamorphopsia. documented in this encounter [facility] 11-03-2024 History of Presen t illness Narrative HPI Patient presents today to reinspect his nasal reconstruction, about 2 months ago. He is doing fine. Relevant postoperative physical examination . There is a little bit of thickness because the sebaceous skin but I am reluctant to inject this with Kenalog because of that. Assessment/plan Tito was seen today for post-op. Diagnoses and all orders for this visit: Skin cancer of nose (Primary) Comments: I will see the patient back as needed documented in this encounter [facility] 11-03-2024 History of Presen t illness Narrative HPI Patient presents today to reinspect his nasal reconstruction, about 2 months ago. He is doing fine. Relevant postoperative physical examination . There is a little bit of thickness because the sebaceous skin but I am reluctant to inject this with Kenalog because of that. Assessment/plan Tito was seen today for post-op. Diagnoses and all orders for this visit: Skin cancer of nose (Primary) Comments: I will see the patient back as needed documented in this encounter [facility] 10-30-2024 History of Presen t illness Narrative HPI Patient presents today 1 week postop repair of a nasal Mohs defect utilizing a nasal dorsal flap. He is doing fine. Relevant postoperative physical examination Sutures removed, flap 100 percent viable and healing nicely. Assessment/plan Tito was seen today for post-op. Diagnoses and all orders for this visit: Mohs defect of nose (Primary) Comments: Patient given wound instructions. He is leaving for [place] for the remainder of the winter. I will see him on a returns in December documented in this encounter [facility] 10-17-2024 History of Presen t illness Narrative Allergies as of 10/17/2024 - Reviewed 10/17/2024 Allergen Reaction Noted Iodine Anaphylaxis and Swelling 08/31/2009 Penicillins Hives 08/01/1963 Shellfish allergy Swelling and Other 08/31/2009 Other Other 06/30/2023 Penicillin g Hives 10/20/2012 Penicillin v 01/22/2023 Shellfish-derived products Swelling 10/20/2012 Sulfa antibiotics Rash and Swelling 08/31/1993 Past Medical History: Diagnosis Date Abrasion of ear canal 07/11/2024 Actinic keratoses Anemia 07/11/2024 Arthritis Atrial fibrillation (CMS/HCC) Basal cell carcinoma (BCC) of left preauricular region [facility] 10/21/2022 Chest pain 07/11/2024 COVID-19 vaccine administered x 2 ([employer] Diabetes ([facility]/HCC) Diverticulosis of colon 10/17/2012 Family history of malignant neoplasm of skin 02/15/2024 Family history of malignant neoplasm of skin 09/06/2023 Gastroesophageal reflux disease without esophagitis 03/15/2022 GERD (gastroesophageal reflux disease) Glaucoma (CMS/HCC) 09/06/2023 Glycosuria 02/15/2024 Glycosuria 09/06/2023 HTN (hypertension) (CMS/HCC) Hypercholesteremia (CMS/HCC) Hyperlipidemia ([facility]) Hypertension ([facility]) Hypertensive disorder ([facility]) 06/10/2014 Macular degeneration Malignant neoplasm of skin 10/17/2012 Melanoma ([facility]) Melanoma in situ of face ([facility]) 02/15/2024 Mitral valve disorder 09/17/2013 MILD (ECHO 8/14) Obstructive sleep apnea syndrome 09/17/2013 Paroxysmal atrial fibrillation ([facility]) 09/17/2013 PAF; CHADS2 SCORE 2 (HTN, DM). ON COUMADIN. 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 01/28/2024 Stage 3a chronic kidney disease (HCC) ([facility]) 03/15/2022 Subdural hematoma ([facility]) 2023 Type 2 diabetes mellitus without complication, without long-term current use of insulin ([facility]) 10/17/2012 Current Outpatient Medications: acetaminophen (Tylenol) 500 MG tablet, Take by mouth every 6 (six) hours if needed, Disp: , Rfl: amLODIPine (Norvasc) 5 MG tablet, Take 5 mg by mouth Daily, Disp: , Rfl: aspirin 81 MG EC tablet, Take 1 tablet by mouth in the morning., Disp: , Rfl: atorvastatin (Lipitor) 10 MG tablet, Take 1 tablet by mouth in the evening., Disp: , Rfl: benazepril (Lotensin) 20 MG tablet, , Disp: , Rfl: benzonatate (Tessalon) 100 MG capsule, Take 100 mg by mouth 3 (three) times a day as needed, Disp: , Rfl: carvedilol (Coreg) 12.5 MG tablet, , Disp: , Rfl: carvedilol (Coreg) 6.25 MG tablet, , Disp: , Rfl: clindamycin (Cleocin) 300 MG capsule, 1 capsule by mouth twice a day for 10 days, Disp: 20 capsule, Rfl: 0 clonazePAM (KlonoPIN) 1 MG tablet, 1-2 tablet at bedtime, Disp: 180 tablet, Rfl: 0 gabapentin (Neurontin) 300 MG capsule, , Disp: , Rfl: HYDROcodone-acetaminophen ([place]) 7.5-325 MG tablet, , Disp: , Rfl: levETIRAcetam (Keppra) 500 MG tablet, , Disp: , Rfl: meloxicam (Mobic) 15 MG tablet, , Disp: , Rfl: Multiple Vitamin (Multi Vitamin) tablet, Take by mouth, Disp: , Rfl: mupirocin (Bactroban) 2 % ointment, , Disp: , Rfl: omeprazole (PriLOSEC) [address] capsule, Take 1 capsule every day by oral route for 90 days., Disp: , Rfl: pantoprazole (ProtoNix) 40 MG EC tablet, , Disp: , Rfl: pioglitazone-metFORMIN (ACTOPlus Met) 15-850 MG tablet, Take 1 tablet by mouth in the morning., Disp: , Rfl: propafenone (Rythmol) 150 MG tablet, Take by mouth., Disp: , Rfl: traZODone (Desyrel) 50 MG tablet, Take 1 tablet by mouth at bedtime., Disp: , Rfl: amiodarone (Pacerone) 200 MG tablet, Take 200 mg by mouth in the morning., Disp: , Rfl: clopidogrel (Plavix) 75 MG tablet, Take 75 mg by mouth Daily (Patient not taking: Reported on 10/17/2024), Disp: , Rfl: Past Surgical History: Procedure Laterality Date CARDIOVERSION CHOLECYSTECTOMY 2012 COLONOSCOPY 2011 ERCP x2 FINGER AMPUTATION Left ring finger GA ARTHROSCOPY KNEE DIAGNOSTIC W/WO SYNOVIAL BX SPX Left SKIN BIOPSY SKIN CANCER EXCISION TOTAL KNEE ARTHROPLASTY Left 06/23/2015 WOUND DEBRIDEMENT 02/24/2024 Reconsruction Left Scalp Wound with Rotation Flap Reconstruction Social History Socioeconomic History Marital status: Spouse name: Not on file Number of children: Not on file Years of education: Not on file Highest education level: Not on file Occupational History Not on file Tobacco Use Smoking status: Former Types: Cigarettes Smokeless tobacco: Not on file Vaping Use Vaping status: Never Used Substance and Sexual Activity Alcohol use: Never Comment: caffeine: soda Drug use: Defer Sexual activity: Defer Other Topics Concern Not on file Social History Narrative Not on file Social Drivers of Health Financial Resource Strain: Low Risk (01/24/2024) Received from [facility], [facility] Overall Financial Resource Strain (CARDIA) Difficulty of Paying Living Expenses: Not hard at all Food Insecurity: No Food Insecurity (01/24/2024) Received from [facility], [facility] Hunger Vital Sign Within the past 12 months, you worried that your food would run out before you got the money to buy more.: Never true Ran Out of Food in the Last Year: Not on file Transportation Needs: No Transportation Needs (01/24/2024) Received from [facility], [facility] Transportation In the past 12 months, has lack of transportation kept you from medical appointments or from getting medications?: No Lack of Transportation (Non-Medical): Not on file Physical Activity: Not on file Stress: Not on file Social Connections: Not on file Intimate Partner Violence: Unknown (01/24/2024) Received from [facility], [facility] Humiliation, Afraid, Rape, and Kick questionnaire Fear of Current or Ex-Partner: No Emotionally Abused: Not on file Physically Abused: Not on file Sexually Abused: Not on file Housing Stability: Low Risk (01/24/2024) Received from [facility], [facility] Housing Stability Vital Sign Unable to Pay for Housing in the Last Year: Not on file Number of Places Lived in the Last Year: Not on file In the last 12 months, was there a time when you did not have a steady place to sleep or slept in a alf (including now)?: No Subjective Patient ID: HPI Patient presents today following Mohs resection of a skin cancer of the nasal dorsum yesterday. The defect about 2 cm just to the right of midline. Into deep subcutaneous tissue. Review of Systems ROS The specialty specific review of systems is noncontributory except for that recorded in the intake questionnaire and /or described in the history of present illness. Objective ENT Physical Exam Physical Exam Constitutional: Appearance: Normal appearance. HENT: Head: Atraumatic. Ears: External ear shows no abnormality Bilateral ear canals are clear Tympanic membranes intact, no evidence of middle ear fluid or other pathology. Nose: External nose appears to be normal Nares patent. Septal deviation to the right No evidence of polyp, mass or pus bilaterally. Oral Cavity: No evidence of trismus Lips appear normal Dental Tongue of normal size and configuration, floor of mouth mucosa clear. Buccal mucosa shows no evidence of ulceration, mass or other abnormality Hard palate soft palate mucosa intact with no evidence of mass, ulceration or other abnormality Uvula of normal size and configuration Oropharynx: Tonsils Posterior pharyngeal wall Neck: No evidence of palpable abnormality Thyroid without evidence of thyromegaly or mass. No cervical lymphadenopathy present. Cardiovascular: Rate and Rhythm: Normal rate and regular rhythm. . Skin: General: See description of nasal defect Neurological: General: No focal deficit present. Mental Status: alert and oriented to person, place, and time. Assessment/Plan Tito was seen today for mohs reconstruction. Diagnoses and all orders for this visit: Mohs defect of nose (Primary) Comments: I recommended debridement and flap repair of the wound. The r/b of excision of skin cancer with recontruction(primary closure, skin graft or flap) were discussed with the patient. These include but are not limited to disfigurment, scarring, poor cosemetic results, difficuty with function of the organ/site involved with the resection a/o flap, bleeding, infection, of the flap, numbness, neuro/vascular injury, need for additional surgery a/o treatment, etc. The pateint has consented to proceed. documented in this encounter [facility] 10-16-2024 History of Presen t illness Narrative Images from the original note were not included. Mohs Surgery Location: Dorsum of nose Date of biopsy: 10/04/2024 Diagnosis: Basal Cell Carcinoma All pertinent medical history, medications, and allergies were reviewed. General Exam: alert, oriented to person, place, and time, normal affect, well appearing Unaccompanied A focused exam completed based on patient reported problems, see below: 1. Basal cell carcinoma (BCC) of dorsum of nose Dorsum of Nose Depressed, erythematous macule at the biopsy site Mohs surgery Consent obtained: written (The rationale for Mohs as well as the risks, benefits, and alternatives. The risks of infection, scarring, bleeding, prolonged wound healing, incomplete removal, allergy to anesthesia or meds, nerve injury, and recurrence were addressed.) Earling Protocol: Procedure explained and questions answered to patient or proxy's satisfaction: Yes Test results available and properly labeled: Yes Pathology report reviewed: Yes Photo or diagram used for site identification: Yes Site/side marked: Yes Anticoagulation: Is the patient taking prescription anticoagulant and/or aspirin prescribed/recommended by a physician? Yes (81 mg ASA, Plavix) Was the anticoagulation regimen changed prior to Mohs? No Anesthesia: Anesthesia method: local infiltration Local anesthetic: lidocaine 1% WITH epi and sodium bicarbonate Procedure Details: Biopsy accession number: [id number] Biopsy lab: [facility] Date of biopsy: 10/04/2024 Frozen section biopsy performed: Yes Specimen debulked: No Pre-Op diagnosis: basal cell carcinoma BCC subtype: nodular MohsAIQ Surgical site (if tumor spans multiple areas, please select predominant area): nose Surgery side: midline Surgical site (from skin exam): Dorsum of Nose Pre-operative length (cm): 0.6 Pre-operative width (cm): 0.5 Indications for Mohs surgery: anatomic location where tissue conservation is critical Other indications for Mohs surgery: Central face Previously treated? No Mohs Appropriate Use Criteria Score: 8 Details of micrographic surgery: Mohs accession number: [id number] Micrographic Surgery Details: Post-operative length (cm): 1.8 Post-operative width (cm): 1.2 Number of Mohs stages: 3 Stage 1 Comments: The area was prepped with Betadine, draped in a sterile fashion, and infiltrated with local anesthetic. Sterile technique was used throughout the procedure. The marked area of clinical tumor with a small rim of clinically normal surrounding skin was removed using Mohs technique with beveled edges. Hash guzman were placed for orientation of the specimen. Hemostasis was achieved with electrodessication. After hemostasis, the defect was measured and recorded, a temporary sterile dressing was placed over the wound, and the patient was escorted to the waiting area. The specimen was oriented, mapped, and if necessary, divided into sections. A Mohs map was prepared. The specimen was placed in a labeled vinecnzo dish and was taken to the Mohs lab where it was chromacoded and processed. Mohs sections were prepared with serial tissue sections, stained, and evaluated by Dr. Bolton for interpretation of deep and peripheral margins. The Mohs map was marked accordingly. Amount of lidocaine used: 1.0 cc Estimated blood loss: <1.0 cc Defect size: 1.7 x 1.0 cm Number of blocks per stage: 1 Number of positive blocks: 1 Tumor features identified on Mohs section: basal carcinoma Tumor features identified on Mohs section comment: nodular pattern Depth of defect after stage: dermis Immunohistochemical stains utilized: multi-keratin Stage 2 Comments: The patient returned to the procedure room, the dressing was removed, the tumor area was re-prepped and draped, and anesthesia was assessed and augmented as necessary. A layer of tissue around the positive margin(s) was removed, and the tissue was oriented, mapped, and processed in an identical fashion as for Stage 1. Hemostasis was achieved and dressing placed as in Stage 1. The patient was escorted to the waiting area. As with Stage 1, Mohs sections were prepared with serial tissue sections, stained, and evaluated by Dr. Bolton for interpretation of deep and peripheral margins. The Mohs map was updated. Assistants: Cecilio Burnham LPN Amount of lidocaine used: 1.5 cc Estimated blood loss: <1.0 cc Defect size: 1.8 x 1.2 cm Number of blocks: 1 Number of positive blocks: 1 Tumor features identified on Mohs section: basal carcinoma Tumor features identified on Mohs section comment: nodular pattern Depth of defect after stage comment: deep dermis Stage 3 Comments: The patient returned to the procedure room, the dressing was removed, the tumor area was re-prepped and draped, and anesthesia was assessed and augmented as necessary. A layer of tissue around the positive margin(s) was removed, and the tissue was oriented, mapped, and processed in an identical fashion as for Stage 1. Hemostasis was achieved and dressing placed as in Stage 1. The patient was escorted to the waiting area. As with Stage 1, Mohs sections were prepared with serial tissue sections, stained, and evaluated by Dr. Bolton for interpretation of deep and peripheral margins. The Mohs map was updated. Assistants: Cecilio Burnham LPN Amount of lidocaine used: 0.5 cc Estimated blood loss: < 1.0 cc Defect size: 1.8 x 1.2 cm Number of blocks: 1 Number of positive blocks: 0. Tumor free margins were obtained and the Mohs procedure was considered complete. Tumor features identified on Mohs section: no tumor identified Depth of defect after stage comment: deep dermis Patient tolerance of procedure: tolerated well, no immediate complications Reconstruction: Was the defect reconstructed? Yes Was reconstruction performed by the same Mohs surgeon? No If no, what is the specialty of the surgeon who did the reconstruction? ENT facial plastics When was reconstruction performed? different day Antibiotics: Were antibiotics given on the day of surgery? Yes When were antibiotics given? post-operative [facility] Post Operative Type of repair: Referred for repair to Carmina Freitas DO Consultation is 10/17/2024 @ 1:30 pm Wound Care: A pressure dressing was placed on the surgical wound. Post-operative instructions were given in writing and were reviewed with the patient. A follow-up appointment was made, and instructions were given to follow-up sooner if necessary. Related Procedures Ambulatory referral to ENT Related Medications clindamycin (Cleocin) 300 MG capsule 1 capsule by mouth twice a day for 10 days Next visit: 01/03/2025 documented in this encounter [facility] 10-03-2024 History of Presen t illness Narrative Chief Complaint Patient presents with PLMD Patient is here today for follow-up of CUBA and PLMD. Subjective Tito Goncalves, 79 y.o., male, being seen today for a follow up from the sleep clinic. He states the klonopin does help him sleep. He states he gets at least 9 hours of sleep per night. He is wearing his machine nightly. His machine is running out of water at night. His mask leaks slightly at times. He needs a refill of Klonopin and will be leaving for [place] in October and not coming back until December. He would like to get a 90 day to cover the time he is gone. 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 Mohs 10/21/2022 COVID-19 vaccine administered x 2 ([employer] Diabetes (CMS/HCC) Diverticulosis of colon 10/17/2012 Family history of malignant neoplasm of skin 02/15/2024 Family history of malignant neoplasm of skin 09/06/2023 Gastroesophageal reflux disease without esophagitis 03/15/2022 GERD (gastroesophageal reflux disease) Glaucoma (CMS/HCC) 09/06/2023 Glycosuria 02/15/2024 Glycosuria 09/06/2023 HTN (hypertension) ([facility]) Hypercholesteremia ([facility]/HCC) Hyperlipidemia ([facility]/HCC) Hypertension ([facility]/HCC) Hypertensive disorder ([facility]) 06/10/2014 Macular degeneration Malignant neoplasm of skin 10/17/2012 Melanoma ([facility]) Melanoma in situ of face ([facility]) 02/15/2024 Mitral valve disorder 09/17/2013 MILD (ECHO 8/14) Obstructive sleep apnea syndrome 09/17/2013 Paroxysmal atrial fibrillation ([facility]) 09/17/2013 PAF; CHADS2 SCORE 2 (HTN, DM). ON COUMADIN. 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 01/28/2024 Stage 3a chronic kidney disease (HCC) ([facility]) 03/15/2022 Subdural hematoma ([facility]) 2023 Type 2 diabetes mellitus without complication, without long-term current use of insulin ([facility]) 10/17/2012 Past Surgical History: Procedure Laterality Date CARDIOVERSION CHOLECYSTECTOMY 2012 COLONOSCOPY 2010 ERCP x2 FINGER AMPUTATION Left ring finger GA ARTHROSCOPY KNEE DIAGNOSTIC W/WO SYNOVIAL BX SPX Left SKIN BIOPSY SKIN CANCER EXCISION TOTAL KNEE ARTHROPLASTY Left 06/23/2015 WOUND DEBRIDEMENT 02/24/2024 Reconsruction Left Scalp Wound with Rotation Flap Reconstruction Family History Problem Relation Name Age of Onset Stroke Mother Cerebral aneurysm Mother Aneurysm Mother Diabetes Father Heart disease Father Coronary artery disease Father Diabetes Paternal Grandmother Multiple myeloma Neg Hx Social History Tobacco Use Smoking status: Former Types: Cigarettes Smokeless tobacco: Not on file Substance Use Topics Alcohol use: Never Comment: caffeine: soda Allergies: Iodine, Penicillins, Shellfish allergy, Other, Penicillin g, Penicillin v, Shellfish-derived products, and Sulfa antibiotics General: No fever or chills HEENT: No nasal congestion or runny nose Pulmonary: No shortness of breath or cough Cardiovascular: No chest pain or palpitations GI: No nausea or vomiting : No dysuria or hematuria Musculoskeletal: No new aches or pains or muscle weakness Infectious: no recurrent fevers or infections Dermatologic: No rashes or skin lesions Neurologic: No new headaches or dizziness Vitals: 10/03/24 0809 BP: 132/82 Pulse: 62 SpO2: 95% Body mass index is 34.23 kg/m . weight: 252 lb 6.4 oz Neurologic exam: General: Normal body habitus, cooperative, pleasant Mental status: Awake, alert to person, place and time. Recent and remote memory are intact. Attention and concentration are normal. Fund of knowledge is appropriate for level of education. HEENT: NC/AT Cranial nerves: CN II: Visual schofield full to confrontation. No loss of vision CN III, IV, : pupils equal round and reactive to light. Extraocular movements intact. No ptosis present. CN V: Facial sensation is normal. CN VII: Full and symmetric facial movement. CN VIII: Hearing is normal CN IX and X: Palate elevates symmetrically. CN XI: Shoulder shrug is normal bilaterally. CN XII: Tongue is midline without atrophy or fasciculation. Speech: Clear and fluent no aphasia or dysarthria Pronator drift: Negative bilateral upper extremity Coordination: Intact, no signs of dysmetria Good finger to nose and rapid alternating movements Sensory: Sensation is intact to light and vibratory touch throughout four extremities. Pinprick intact in all four extremities. Motor: LUE 5/5 RUE 5/5 LLE 5/5 RLE 5/5 Tone: Physiologic, no tremor, bradykinesia or rigidity DTR: Bilateral Biceps 2/4 Bilateral BR 2/4 Bilateral Patellar 1/4 No spasticity Gait: Normal to casual gait Romberg's negative Review and summary of old records: Assessment/Plan Diagnoses and all orders for this visit: CUBA (obstructive sleep apnea) PLMD (periodic limb movement disorder) - clonazePAM (KlonoPIN) 1 MG tablet; 1-2 tablet at bedtime Daytime hypersomnolence Snoring Primary insomnia 79-year-old male with severe obstructive sleep apnea that leads to daytime hypersomnolence and snoring. This is controlled with the use of his CPAP. Fully compliant using the machine 100 percent of the time greater than 4 hours with an average nightly usage of 9 hours and 3 minutes residual AHI of 1.4. His periodic limb movements are controlled with the use of the Klonopin. He has some mild insomnia in the Klonopin helps with that also He will be going to [place] once again this October for 1 1/2 months. We will end up seeing him another time before this. We will once again give him a 90 day prescriptions so he does not run out.. . . . Plan Continue the Emma with a 90 day prescription to take him through [place] Use the machine every night Compliance data was reviewed and is as above Increase diet exercise and clean living OARSS reviewed and no concerns, refilled klonopin today, due 07/07/2024 We will have sleep clinic call and schedule him for 3 month f/u He should should try to maintain healthy diet clean living and maintain lean body weight The patient was counseled on proper sleep hygiene and adequate hours of sleep. Do not drive if sleepy The patient was counseled on the risks of stroke, DC, and sudden with CUBA, along with the need for compliance with the CPAP/BiPAP treatment. Was counseled on the controlled nature of the medication and to take it as prescribed This was discussed with the patient, all questions were answered and they agreed with the treatment plan. The patient is to call with any worsening of the condition or new symptoms. Return to clinic: 3 months documented in this encounter [facility] 09-07-2024 Note Right Eye Quality was good. Scan locations included subfoveal. Progression has been stable. Findings include abnormal foveal contour, subretinal scarring. Left Eye Quality was good. Scan locations included subfoveal. Progression has been stable. Findings include abnormal foveal contour. Notes Macular Volume Loss both eyes (OU) [facility] 09-07-2024 History of Presen t illness Narrative Images from the original note [...] get ahold of his retina specialist in [place] if there was a change. Will see [...] tears were recommended. documented in this encounter [facility] 08-21-2024 Evaluation note Diagnosis Onset Date Resolution Anemia acute August 21, 2024 9:08am Atrial fibrillation acute 2023 9:08am Chronic kidney disease acute No vember 2023 9:08am GERD (gastroesophageal reflux disease) acute August 21 024 9:08am Hypertension acute July 9:08am Obesity acute August 21, 2024 9:08am CUBA (obstructive sleep apnea) acute August 21 024 9:08am Type 2 diabetes mellitus with hyperglycemia acute July 9:08am Atrial fibrillation acute 2024 8:18am Chronic kidney disease acute Ja nuary 2024 8:18am GERD (gastroesophageal reflux disease) acute October 10 8:18am Hypertension acute September 8:18am Obesity acute October 10, 2024 8:18am CUBA (obstructive sleep apnea) acute October 10 8:18am Type 2 diabetes mellitus with hyperglycemia acute October 10, 2024 8:18am [facility] Work Phone: 1(358) 194-461411-26-2024 Evaluation note* Diagnosis Onset Date Resolution Status Admit Date Anemia acute August 21, 2024 9:08am Atrial fibrillation acute 2023 9:08am Chronic kidney disease acute No vember 2023 9:08am GERD (gastroesophageal reflu x disease) acute August 21, 024 9:08am Hypertension acute July 9:08am Obesity acute August 21, 2024 9:08am CUBA (obstructive sleep apnea) acute August 21, 2024 9:08am Type 2 diabetes mellitus wit h hyperglycemia acute August 21, 2 024 9:08am Anemia acute October 10, 2024 8:18am Atrial fibrillation acute Janua ry 2024 8:18am Chronic kidney disease acute Ja nuary 2024 8:18am Diabetes mellitus with diabe tic polyneuropathy acute October 10 8:18am GERD (gastroesophageal reflu x disease) acute October 10 8:18am Hypertension acute September 8:18am Obesity acute October 10, 2024 8:18am CUBA (obstructive sleep apnea) acute October 10, 2024 8:18am Type 2 diabetes mellitus wit h hyperglycemia acute October 10 8:18am [facility] Work Phone: 1(959) 406-645010-16-2024 [facility] - [facility] Chief Complaint: Thought he had [...] In April 2019 he presented to the [facility] with atrial fibrillation with controlled ventricular [...] is obese. He is not ill-appearing. HENT: Sharron (more content not included)...[facility]09-24-2024 History of Present illness Narrative* Osman Shah, INFORMATICS EDUCATOR-PASTOR - 10/04/2024 2:40 PM EST Images from the original note were not included. Follow up Diagnosis: Actinic Keratosis Location: left antihelix Last visit: 06/19/24 Symptoms: rough Status: no change Procedure performed: Cryotherapy Date of procedure: 06/19/24 Number of treatments to date: 1 Current treatment: follow up today Follow up Diagnosis: Seborrheic Keratosis Location: dorsum of nose Last visit: 06/19/24 Symptoms: rough Status: no change Procedure performed: Cryotherapy Date of procedure:06/19/24 Number of treatments to date: 1 Current treatment: here for follow up All pertinent medical history, medications, and allergies were reviewed. General Exam: alert, oriented to person, place, and time, normal affect, well appearing Unaccompanied A focused exam completed based on patient reported problems, see below: 1. Neoplasm of unspecified behavior of bone, soft tissue, and skin Dorsum of Nose Flesh colored papule on nasal dorsum Lesion biopsy Type of biopsy: tangential Informed consent: discussed and consent obtained Informed consent comment: The risks and benefits of the biopsy were discussed. Risks include but are not limited to bleeding, infection, scarring, pain, and nerve damage. An opportunity to ask questions prior to the procedure was permitted and all questions were answered. Patient was prepped and draped in usual sterile fashion: area cleansed with alcohol. Anesthesia: the lesion was anesthetized in a standard fashion Anesthetic: 1% lidocaine w/ epinephrine 1-100,000 buffered w/ 8.4% NaHCO3 Instrument used: DermaBlade Hemostasis achieved with: electrodesiccation Outcome: patient tolerated procedure well Outcome comment: The specimen was placed in a prelabeled formalin container to be sent for pathology Post-procedure details: sterile dressing applied and wound care instructions given Post-procedure details comment: Emphasized need to contact clinic for any signs of infection, uncontrollable bleeding, or complications. Dressing type: bandage Additional details: Photo taken Amount of lidocaine used: 0.4 cc Specimen A - Dermatopathology exam Differential Diagnosis: BCC Check Margins: No Size of lesion: 0.6 x 0.5 cm Next Visit: as scheduled [id number] History of Present illness Narrative* EDYTA Spence - 06/19/2024 9:25 AM EDT Skin Check Location: Patient requests a full body skin examination Dermatologic history: history of Actinic Keratosis, history of Basal Cell Carcinoma, history of Squamous Cell Carcinoma, history of Melanoma Last visit: Mohs/Frontal scalp - 01/2024, last skin check 01/10/2024 Melanoma History: Date of Melanoma Dx: 07/2022 Melanoma Details: Melanoma in situ Melanoma Treatment: Excision performed by Macario Bui MD Location: Right latter day Established patient Lesions: Location: Nose Duration: Two weeks Quality: Asymptomatic Modifying factors: Doesn't look right Associated symptoms: Redness Treatments: None All pertinent medical history, medications, and allergies were reviewed. General Exam: alert , oriented to person, place, and time , normal affect, well appearing Scalp, Examined Right leg Examined Head, Face Examined Left leg Examined Neck Examined Right foot Examined Chest Examined Left foot Examined Back Examined Buttocks Examined Abdomen Examined Digits,nails: Examined Right arm Examined Left arm Examined Lymphatics: Examined Hands Examined no cervical lymphadenopathy, no supraclavicular lymphadenopathy, no axillary lymphadenopathy 1. Seborrheic keratosis Stuck on verrucous, variably pigmented papules and plaques. Patient was counseled regarding these benign growths. Removal is normally not necessary, but they may be removed if they are symptomatic or for cosmetic reasons. 2. Melanocytic nevus of trunk Scattered benign appearing, regular brown to light brown melanocytic papules and macules with similar morphology Counseled regarding these benign growths. Rarely, a nevus can develop into malignant melanoma, so any changing nevi should be promptly re-evaluated. 3. Lentigines Scattered whalen macules in sun-exposed areas. The patient was informed that lentigines are benign pigmented lesions that occur on sun-exposed andsun-damaged skin. No treatment is necessary. Recommended regular use of broad spectrum sunscreen SPF 30 or higher 4. Capillary angioma Trunk Scattered morejon-red papule(s). The patient was informed that angiomas are benign growths on the the skin. No treatment is necessary. 5. Telangiectasia of face Left Tip of Nose Superficial blood vessels Benign. Counseled on condition, reassurance given. No treatment necessary 6. Actinic keratosis (20) Left Antihelix, Left Dorsal Hand (5), Mid Frontal Scalp, Mid Occipital Scalp (3), Mid Parietal Scalp (9), Right Dorsal Hand Erythematous scaly papules Patient was counseled regarding these sun-induced growths that can develop into squamous cell carcinoma if left untreated. Discussed treatment with cryotherapy. It was emphasized that any treated lesions that fail to resolve should be re- evaluated. Cryotherapy performed today; see procedure note Diagnosis: Actinic keratosis Indication: Precancerous Location: see skin exam Consent: Verbal consent was obtained and risks were discussed, including, but not limited to risks of scarring, darker or supervisor finishing department pigmentary changes, recurrence, incomplete removal and infection. Method: Liquid nitrogen was used to treat the lesion(s) with two 5-10 second freeze-thaw cycles. Number of lesions treated: 20 Post-procedure instructions: Instructions were given orally and in writing. The office will be contacted if the lesion fails to resolve despite treatment, or if a side effect develops such as abnormal crusting, scabbing, redness or tenderness Cryotherapy, skin lesion - Left Antihelix, Left Dorsal Hand (5), Mid Frontal Scalp, Mid Occipital Scalp (3), Mid Parietal Scalp (9), Right Dorsal Hand 7. Seborrheic keratosis, inflamed Dorsum of Nose [place] and brown stuck on verrucous scaly papule with surrounding erythema The patient was informed that symptomatic seborrheic keratoses are benign growths that become inflamed, itchy, tender, traumatized, caught on clothing, or bleed. Symptomatic lesions can be treated with cryotherapy or curretage. Thicker lesions treated with cryotherapy may require more than one treatment. The patient was instructed to notify the office if abnormal redness or tenderness develops atthe treatment site. Cryotherapy today, see procedure note. Diagnosis: Inflamed seborrheic keratosis Indication: Inflamed Consent: Verbal consent was obtained and risks were discussed, including, but not limited to risks of scarring, darker or supervisor finishing department pigmentary changes, recurrence, incomplete removal and infection. Method: Liquid nitrogen was used to treat the lesion(s) with two 5-10 second freeze-thaw cycles Number of lesions treated: 1 Post-procedure instructions: Instructions were given orally and in writing. The office will be contacted if the lesion fails to resolve despite treatment, or if a side effect develops such as abnormal crusting, scabbing, redness or tenderness Cryotherapy, skin lesion - Dorsum of Nose 8. History of malignant melanoma of skin Right [place] No evidence of recurrence at melanoma scar. The patient was counseled that scars from excisional sites of melanoma should be monitored closely for recurrence. The patient was instructed to contact the office for any new, changing, or symptomatic moles. The patient was also instructed to contact the office for any new lesions that develop within or around the previous melanoma scar. Next Visit: 6 months, skin check documented in this encounterSelect Specialty [id number] NoteRight Eye Quality was good. Scan locations included subfoveal. Progression has been stable. Findings include abnormal foveal contour. Left Eye Quality was good. Scan locations included subfoveal. Progression has been stable. Findings include abnormal foveal contour. Notes Macular Volume Loss both eyes (OU). [facility] [id number] History of Present illness Narrative* Jose R Dodd, - 06/08/2024 10:30 AM EDT Images from the original note [...] get ahold of his retina specialist in [place] if there was a change. Will see [...] artificial tears were recommended. documented in this encounterSelect Specialty [id number] NoteUT Cardiology - [facility] Chief Complaint: Thought he had [...] In April 2019 he presented to the [facility] with atrial fibrillation with controlled ventricular [...] regular rhythm. Pulses: Radial (more content not included)...[facility] 03-22-2024 NoteUT Cardiology - [facility] Subjective Tito Goncalves is a [...] In April 2019 he presented to the [facility] with atrial fibrillation with controlled ventricular [...] Judgment normal. Allergies [place] (more content not included)...[facility]06-21-2024 NotePatient: Tito Goncalves Procedure Information Date/Time: 03/16/24 1030 Procedure: TRANSESOPHAGEAL ECHO (JESSICA) Location: [facility] Heart and Vascular Center Vascular Lab Clinical information reviewed: Allergies Meds Physical Exam Airway Mallampati: II TM distance: >3 FB Neck ROM: full Cardiovascular Rhythm: regular Rate: normal Dental Pulmonary Abdominal Anesthesia Plan ASA 3 other (Conscious sedation.) Anesthetic plan and risks discussed with patient. Use of blood products discussed with patient who consented to blood products. Additional [facility]UnTr[facility]-16-[facility]24 Note Patient here for follow up LAAO and pericardial effusion. Still denies chest pain, SOB, palpitations, and lightheadedness/syncope. Doing very well. Review of Systems Constitutional: Positive for malaise/fatigue. Cardiovascular: Positive for leg swelling (resolves by morning). Hematologic/Lymphatic: Bruises/bleeds easily. Musculoskeletal: Positive for arthritis, back pain and myalgias. All other systems reviewed and are negative.[facility] 02-09-2024 NoteCardiovascular Medicine [place] [facility] SUBJECTIVE Chief Complaint Patient presents with [...] Left lower leg: [place]aman (more content not included)...[facility]05-05-2024 NotePatient discharged with family. Patient provided copy of AVS and discharge instructions. All questions and concerns addressed. All belongings with patient [facility]05-05-2024 NoteHospital Medicine Discharge Summary Final Discharge Diagnosis: Paroxysmal [...] In April 2019 he presented to the [facility] with atrial fibrillation with controlled ventricular [...] switched propafenon to amiodarone. - Not on fpc AC due to hx of falls and [...] 9:40 AM Madison Paul NP TIMO Rosalina [facility] 03/16/2024 10:30 AM [facility] REVIEW MANAGER HOLDING ROOM [facility] VASC LAB NM Heart[facility]AS Your medication list START taking these [...] Medications These medications were sent to [facility] - [address] [place] [address] [address] [facility] [place] [address], [facility] [address] amiodarone 200 mg tablet clopidogrel 75 mg tablet Tito is allergic to iodine, penicillins, shellfish containing products, and sulfa (sulfonamide antibiotics). Disposition: Home-Health Care [facility] () Discharge Condition: Stable Code Status: Full [...] and oriented x3. Cardiology: (more content not included)...[facility] 01-29-2024 NoteCardiology Progress Note Subjective Subjective: No acute events [...] 86 QT Interval 316 QTC CALCULATION(BAZETT) 453 R-Seadrift 8 T Wave Seadrift 100 Impression Atrial fibrillation with rapid ventricular [...] (TTE) limited Result Date: 01/27/2024 1 1 [facility] Heart Station [address] [place] [address] [phone] (fax) Echocardiogram-[facility] Name: TITO GONCALVES Study Date: 01/27/2024 08:18 AM B/P: 147 mmHg/62 mmHg HR: 67 bpm Date of : 1945 Location: [facility] Height: 72 in. Age: 79 year(s) [...] fibrinous material noted. Procedure Staff Reading Group: [facility] Phlebotomy Support Tech: MARLEY Donohue, RDCS Ordering Physician: LIONEL MENA Transthoracic echo (TTE) limited Result Date: 01/26/2024 1 1 [facility] Heart Station [address] [place] [address] [phone] (fax) Echocardiogram-[facility] Name: TITO GONCALVES Study Date: 01/26/2024 07:59 AM B/P: 129 mmHg/74 mmHg HR: Date of : 1945 Location: [facility] Height: 72 in. Age: 79 year(s) [...] left atrium appears e (more content not included)...[facility]05-04-2024 Note Cardiology Progress Note Subjective Subjective: No [...] 86 QT Interval 316 QTC CALCULATION(BAZETT) 453 R-Seadrift 8 T Wave Seadrift 100 Impression Atrial fibrillation with rapid ventricular [...] (TTE) limited Result Date: 01/27/2024 1 1 [facility] Heart Station [address] [place] [address] [phone] (fax) Echocardiogram-[facility] Name: TITO GONCALVES Study Date: 01/27/2024 08:18 AM B/P: 147 mmHg/62 mmHg HR: 67 bpm Date of : 1945 Location: [facility] Height: 72 in. Age: 79 year(s) [...] fibrinous material noted. Procedure Staff Reading Group: [facility] Phlebotomy Support Tech: MARLEY Donohue, RDCS Ordering Physician: LIONEL MENA Transthoracic echo (TTE) limited Result Date: 01/26/2024 1 1 [facility] Heart Station [address] [place] [address] [phone] (fax) Echocardiogram-[facility] Name: TITO GONCALVES Study Date: 01/26/2024 07:59 AM B/P: 129 mmHg/74 mmHg HR: Date of : 1945 Location: [facility] Height: 72 in. Age: 79 year(s) [...] in size. Right ventr (more content not included)...[facility]05-04-2024 Note Physical Therapy Physical Therapy Evaluation & Treatment Patient Name: Tito Goncalves : 1945 Today's Date: 01/28/2024 Time in: 1:53 pm Time out: 2:20 pm Total time: 27 minutes 01/28/24 1422 PT Last Visit PT Received On 01/28/24 General Subjective Both RN and pt agreeable to PT this afternoon. Pt denies pain and asleep upon content writer entering room however easily awakens. Cognition Overall Cognitive Status WFL Arousal/Alertness Appropriate responses to stimuli Orientation Level Oriented X4 Following Commands Follows all commands and directions without difficulty Communication Intact Cognition Comments pt had difficulty navigating back to correct room after first bout of ambulation however after 2nd bout able to navigate back to room without external cues from content writer. Therapeutic Exercise Therapeutic Exercise Time Entry [...] tray table within reach. PT Assessment PT Assessment/GENERAL CONTRACTOR Summary Pt continues to progress towards goals [...] stable vital signs throughout session 01/27/24 02/10/24 --[facility] - 01/28/2024 11:20 AM; Room: [address] [place] [address] Admission: 01/24/2024 10:46 AM; Length of stay: 4 days THE HOSPITALIST TEAM PREFERS TO USE [employer] CHAT FOR COMMUNICATION 7AM-7PM. IF I DO NOT RESPOND WITHIN 15 MINUTES, PLEASE PAGE ME/CALL THROUGH THE SUBWAY CONDUCTOR. FROM 7PM-7AM, PLEASE PAGE [phone](COVR) Code Status: Full Code Barriers to Discharge: [...] complication and patient was admitted to the [facility] for over night monitoring to [...] (Active) Date First Assessed/Time First Assessed: 01/25/24 2152 Hand Hygiene Completed: Yes Primary Wound Type: [...] 40 mg, oral, Daily (more content not included)...[facility]05-03-2024 Note Attestation signed by Srinath Joseph MD at [...] amiodarone, converted back to normal sinus rhythm. Hospital Medicine Daily Progress Note - 01/27/2024 12:46 PM; Room: [facility]7/[id number] Admission: 01/24/2024 10:46 AM; Length of stay: 3 days THE HOSPITALIST TEAM PREFERS TO USE [employer] CHAT FOR COMMUNICATION 7AM-7PM. IF I DO NOT RESPOND WITHIN 15 MINUTES, PLEASE PAGE ME/CALL THROUGH THE SUBWAY CONDUCTOR. FROM 7PM-7AM, PLEASE PAGE [phone](COVR) Code Status: Full Code Barriers to Discharge: [...] Inpatient Problems Principal Problem: Paroxysmal atrial fibrillation ([facility]) Active Problems: Pericardial effusion Assessment [...] mg, oral, Nightly ami (more content not included)...[facility]05-03-2024 NoteUTP CARDIOLOGY INPATIENT PROGRESS NOTE Reason for follow up: PAF [...] 1 mg/min, Last Rate: 1 mg/min (01/27/24 0926) PRN medications: benzonatate, glucose OR dextrose 50 [...] -- -- -- 94 % -- 01/26/24 1935 -- -- -- 84 19 93 % [...] 86 QT Interval 316 QTC CALCULATION(BAZETT) 453 R-Seadrift 8 T Wave Seadrift 100 Impression Atrial fibrillation with rapid ventricular [...] systolic function is normal. (more content not included)...[facility]05-03-2024 Note Attestation signed by Jay Benitez PT at 01/27/2024 11:18 AM This content writer (PT) provided one-on-one supervision, direction of patient care/therapeutic interventions, and reviewed documentation. Physical Therapy Physical Therapy Evaluation Patient Name: Tito Goncalves : 1945 Today's Date: 01/27/2024 Pt is 79 yo male presenting p/d left atrial appendage closure on 01/24/24 d/t paroxysmal A-fib. Pt had a fall overnight on 01/25/24, presumably from hypotension (SBP 60-70s). Pt brought to MICU for vasopressors. ECHO showed pericardial effusion, pt went to concrete mixing plant laborer for pericardiocentesis and currently has a pericardial [...] 3a chronic kidney disease (CMS/HCC) Subdural hematoma ([facility]/HCC) Type 2 diabetes mellitus without complication, [...] Level of Function Prior Function Level of [place]: Independent with ADLs and functional transfers, Independent [...] device, No upper extremity (more content not included)...[facility]05-03-2024 NoteOccupational Therapy Occupational Therapy Evaluation Patient Name: Tito [...] Level of Function Prior Function Level of [place]: Independent with ADLs and functional transfers, Independent [...] Eating meals?: None (Independent) Total Score [facility] Assessment/Plan OT Assessment OT Impairments: [...] 5 times per wee (more content not included)...[facility]05-02-2024 Note Attestation signed by Lionel Mena MD at [...] patient can be transferred out of ICU. Medical ICU Progress Note Patient - Tito Goncalves Age - 79 y.o. - 1945 [id number] Date of Admission - 01/24/2024 10:46 AM [...] Patient in limited echocar (more content not included)...[facility]05-02-2024 Note Attestation signed by Zoran Daniel MD at [...] be an additional personal documentation from me. Cardiology Progress Note Subjective Subjective: Tito Goncalves [...] March MD, 150 mg at 01/24/24 221 traZODone (Desyrel) tablet 50 mg, 50 mg, [...] -- -- 88 21 94 % 01/25/24 191 98/60 -- -- 86 20 95 % [...] Value Ventricular Rate 52 Atrial Rate 52 GA Interval 184 QRS DURATION 84 QT Interval 424 QTC CALCULATION(BAZETT) 394 P Seadrift 79 R-Seadrift 51 T Wave Seadrift 76 Impression Sinus bradycardia Nonspecific T wave abnormality Abnormal ECG (more content not included)...[facility]05-02-2024 Note 01/26/24 1243 Admission Assessment Questions Verify insurance with patient Yes Do you understand medical disease or what brought you into the hospital? Yes Who is your current PCP? Dr Metz in [place] Can I schedule a follow up appointment for you at the time of discharge? Yes Do you understand why you are taking your current medications? Yes Are you taking your medications as prescribed? Yes Did patient provide teach back? Yes Would you like use our pharmacy iMeds to fill your new medications at the time of Discharge? No Does the patient have a field nurse case manager assigned to them through their insurance? No [...] able to send link and activate MyChart? [facility]05-01-2024 Note Attestation signed by Zoran Daniel MD at [...] is s/p pericardial tap and hemodynamically stable, Cardiology Progress Note Subjective Subjective: Tito Goncalves [...] 92/60 -- -- -- -- -- -- 01/25/24 0520 -- -- -- 55 15 97 % -- 05/01/24 0520 93/62 -- -- -- -- -- -- 01/25/2415 -- -- -- 54 15 97 % -- 01/25/2415 89/58 -- -- -- -- -- -- 01/25/24 0510 -- -- -- 55 15 97 % -- 01/25/2410 74/58 -- -- -- -- -- -- 01/25/24 0505 -- -- -- 56 14 96 % -- 01/25/245 72/53 -- -- -- -- -- -- 01/25/240 -- -- -- 54 (!) 0 -- -- 01/25/24 0500 74/52 -- -- 54 15 95 % -- 01/25/245 -- -- -- 53 14 96 % -- 01/25/245 72/54 -- -- -- -- -- -- [...] -- -- 53 14 96 % -- 01/25/240 -- -- -- 55 11 95 % -- 01/25/248 70/53 -- -- -- -- -- -- 01/25/24 0 (more content not included)...[facility] 01-25-2024 NotePatient: Tito R Kaple Procedure Information Date/Time: 01/25/241799 Procedure: Pericardiocentesis Location: [facility] REVIEW MANAGER 3 / [facility] VASCULAR LAB (Cath) Providers: Oliver Crane [...] products. Plan discussed with attending. Additional Equipment RequestsPark[facility]05-01-2024 Note CLINICAL INFORMATION: Ground level fall, recurrent hypotension, watchman procedure, [...] in this report. Electronically signed: Trenton Martinez. 6[facility]05-01-2024 NoteResponded to rr Hypotension fall Pt seen chart [...] ordered d/w cardiology pt to move to [facility]04-30-2024 NotePharmacy Dosing Service - Vancomycin Initial Consult Note Pharmacy has been consulted for the dosing and evaluation of Drug: Vancomycin Indication: surgical prophylaxis Other Antimicrobial Regimens: None Labs and Renal Function Total body weight: 112 kg (248 lb) [place] body weight: 77.6 kg (171 lb 1.2 [...] afebrile and hemodynamically stable. Presenting to [facility] for closure of left atrial appendage. [...] or questions Thank you, Rose Tomas, PharmD, 01/24/24[facility]04-30-2024 Note Patient: Tito Goncalves Procedure Information Date/Time: 01/24/24 1300 Procedure: Left atrial appendage closure (transvenous) - ADRIENNE WILL CALL Location: [facility] REVIEW MANAGER 3 / [facility] VASCULAR LAB (Cath) Providers: Oliver Crane MD Clinical information reviewed: Allergies Meds Physical Exam Airway Mallampati: II TM distance: >3 FB Neck ROM: full Cardiovascular Rhythm: regular Rate: normal Dental Pulmonary Abdominal Anesthesia Plan ASA 3 other (Conscious sedation.) Anesthetic plan and risks discussed with patient. Use of blood products discussed with patient who consented to blood products. Additional Equipment RequestsPark[facility] Health04-17-2024 Note Amna Sousa CNP - patient's daughter- called with questions about her dad's upcoming LAAO procedure. She said you had given her instructions for him previously regarding coumadin, but she cannot find it. Can you please call her cell phone when you get a chance? [phone] If you need me to do anything, please let me know. Thanks! :)[facility]02-05-2024 Evaluation note* Encounter Date Diagnosis Assessment Notes Treatment Notes Treatment Clinical Notes Oct, Essential hypertension (ICD-10 - I10) [...] are maintaining regular scheduled appts with their professor of business administration. Scheduled for LAAO procedure but postponed until spring. Fall precautions. Oct, Obstructive sleep apnea (ICD-10 - G47.33) Auto CPAP 10-15, Facial Mask This patient is aware of the benefits associated with CUBA: With continued use, the patient reduces the risk for DC, CVA, HTN, cardiac dysrhythmias and sudden cardiac deaths.The patient is also aware of the association between CUBA and morning headaches, daytime somnolence, fatigue and obesity, which also has been improved with continued use.The patient is compliant with treatment, wearing the equipment every night for greater than 4 hours.The patient is instructed to continue use of the CPAP for CUBA treatment. Oct, Gastro-esophageal reflux disease with esophagitis, without bleeding [...] Exercise w/ goal of 10% weight loss PK Clean Other 02-02-2024 NoteRight Eye Quality was good. Scan locations included subfoveal. Progression has been stable. Findings include abnormal foveal contour, disciform scar. Left Eye Quality was good. Scan locations included subfoveal. Progression has been stable. Findings include normal observations.[facility] [id number] History of Present illness Narrative* Jose R [...] get ahold of his retina specialist in [place] if there was a change. Will see [...] artificial tears were recommended. documented in this encounterSelect Specialty [id number] [facility] Card[facility] Clinic Note Chief Complaint: Patient here [...] appropriate mood, affect, and judgement. Transesophageal Echocardiogram-[facility] Name: TITO GONCALVES Study Date: 09/16/2023 09:38 AM B/P: 136 mmHg/70 mmHg HR: Date of : 1945 Location: [facility] Height: 72 in. Age: 78 year(s) Patient Room : [facility] VASCULAR POOL Weight: 246 lb. Gender: Male Patient Status: OutPt BSA: 2.33 m2 Indication: Atrial Fibrillation, Pre LAAO closure Examination: JESSICA/Limited Doppler/CFI, Agitated Saline, 3D images Image Quality: Good Patient Consent: Informed, written consent was obtained for the procedure s p @ c 3 Exam Location: A JESSICA was performed in the Telephonic Nurse without complications s p @ c 3 [...] should problems arise Maggy Murphy MD, MPH, [facility], [facility], [facility] Interventional Cardiology Pager Email: [email or web address] NoteUT Cardiology - [facility] Subjective Tito Goncalves is a 78 y.o. year old male patient being seen to discuss LAAO. He presented to [facility] ED in Jun 2023 for fall. He is anticoagulated with warfarin for afib. Back in December 2022 he had brain bleed s/p fall. Was treated at [facility]. He denies chest pain, SOB, and [...] In April 2019 he presented to the [facility] with atrial fibrillation with controlled ventricular [...] Take 1 tablet (more content not included)... [facility]06-21-2023 History of Present illness Narrative* Shannen Tirso - 03/16/2023 11:20 AM EDT Ortho Nurse - Established Patient Intake Room#: 5 Date: 03/16/2023 11:20 AM Patient: Tito Goncalves MR#: [id number] : 1945 Age: 78 y.o. 1yr R [...] allergy, and sulfa antibiotics. * Azul Rachel APRN-PASTOR - 03/16/2023 11:20 AM EDT HPI: Patient [...] have reviewed the findings of the clinical user support specialist and agree with their assessment. Ortho Nurse - Established Patient Intake Room#: 5 Date: 03/16/2023 11:20 AM Patient: Tito Goncalves MR#: [id number] : 1945 Age: 78 y.o. 1yr R [...] allergy, and sulfa antibiotics. documented in this [facility]04-29-2023 Evaluation note* Encounter Date Diagnosis Assessment Notes Treatment Notes Treatment Clinical Notes Dec, Subarachnoid hemorrhage (ICD-10 - I60.9) PK Clean Other 04-12-2023 Evaluation note* Encounter Date Diagnosis [...] are maintaining regular scheduled appts with their professor of business administration. Dec, Obstructive sleep apnea (ICD-10 - G47.33) Auto CPAP 07-10, Facial Mask This patient is aware of the benefits associated with CUBA: With continued use, the patient reduces the risk for DC, CVA, HTN, cardiac dysrhythmias and sudden cardiac [...] and weight loss. Improved control of BS PK Clean Other 02-15-2023 Evaluation note* Encounter Date Diagnosis Assessment Notes Treatment Notes Treatment Clinical Notes Oct, Cholecystitis (ICD-1 0 - K81.9) PK Clean Other 02-14-2023 NotePatient Education Material [facility] FOLLOW UP CARE ? [...] physician?s office at: THANK YOU FOR CHOOSING [facility] FOR YOUR PROCEDURE! [phone] This information is not intended to replace advice given to you by your health care provider. Make sure you discuss any questions you have with your health care provider. ExitCare? Patient Information ?2016 [employer]. Custom Education added 09/2018[facility]02-14-2023 NoteNursing Discharge Summary Entered On: 11/09/2022 [...] Provider : Verbalizes understanding Sariah Schreiber RN 11/09/2022 8:43 EST Health Maintenance Education Adult Grid Diet/Nutrition : Verbalizes understanding Sariah Schreiber RN 11/09/2022 8:43 EST Safety Education Adult Grid Safety, Fall : Verbalizes understanding Sariah Schreiber RN 11/09/2022 8:43 EST Additional Session Learner/s Present : Daughter Sariah Schreiber RN 11/09/2022 8:43 [facility]01-09-2023 Evaluation note* Encounter Date Diagnosis Assessment Notes [...] use, the patient reduces the risk for DC, CVA, HTN, cardiac dysrhythmias and sudden cardiac [...] INR being monitored, no bleeding complications noted PK Clean Other 10-13-2022 History of Present illness Narrative* Luis Wang LPN - 07/08/2022 11:20 AM EDT Ortho Nurse - Established Patient Intake Room#: 2 4 month Right TKA, some pain of 1-2 when weed eating, going great Date: 07/08/2022 11:51 AM Patient: Tito Goncalves MR#: [id number] : 1945 Age: 77 y.o. Referring Physician: [...] have reviewed the findings of the clinical user support specialist and agree with their assessment. Ortho Nurse - Established Patient Intake Room#: 2 4 month Right TKA, some pain of 1-2 when weed eating, going great Date: 07/08/2022 11:51 AM Patient: Tito Goncalves MR#: [id number] : 1945 Age: 77 y.o. Referring Physician: [...] allergy, and sulfa antibiotics. [facility] Hospital Discharge instructions Patient Education 05/03/2022 [...] urethra. Follow these instructions at home: Take xnco-wac-ruvvykd and prescription medicines only as told by [...] 09/12/2006 Document Revised: 08/07/2019 Document Reviewed: 10/17/2017 [employer] Patient Education 2020 [employer]. Follow Up Care 04/27/2021 11:05:10 With:GAGE UMANZOR, Mc Blackman, URL Address: [facility] [address] , [place] [address]- [phone] When: Unknown Comments:KIM [facility] 07-14-2022 History of Present illness Narrative* Shannen Chahal - 04/08/2022 10:00 AM EDT Ortho Nurse - Established Patient Intake Room#: 5 Date: 04/08/2022 9:50 AM Patient: Tito Goncalves MR#: [id number] : 1945 Age: 77 y.o. 3wk S/P [...] allergy, and sulfa antibiotics. * Azul Rachel APRN-PASTOR - 04/08/2022 10:00 AM EDT HPI: Tito [...] roller. All pertinent portions of the clinical user support specialist documentation was reviewed and agree. EDYTA Ayala I have reviewed the findings of the clinical user support specialist and agree with their assessment. EDYTA Ayala Ortho Nurse - Established Patient Intake Room#: 5 Date: 04/08/2022 9:50 AM Patient: Tito Goncalves MR#: [id number] : 1945 Age: 77 y.o. 3wk S/P [...] allergy, and sulfa antibiotics. documented in this [facility]06-21-2022 Miscellaneous Notes* Nursing Notes - Kirsten Crawford [...] RN - 02/18/2022 1:25 PM EDT 02/18/22 4754 Information Source Information Source patient Contact Information Vp Organizational Development Name Gini Medrano RN Case Manager's Living [...] that he plans to return home with [facility]. The patient states that his daughter is [...] assist with discharge plans. documented in this [facility]06-21-2022 Note* Nursing Notes - Kirsten Crawford RN - 03/16/2022 3:01 PM EDT Discharge instructions gone over with pt and pt's daughter at this time by Regina GAVIN. Both, verbalize understanding and deny any further questions. Hemovac drain removed at this time, tip intact upon removal, pt tolerated well. [facility] History of Present illness Narrative* Blanca Peck, GENERAL CONTRACTOR - 03/16/2022 2:21 PM EDT 03/16/22 1421 [...] Transfer Skill: Sit To Stand, Rehab Eval [place] (Sit-Stand Transfers) (mod I) Physical Assist/Nonphysical Assist: Sit/Stand 1 person assist Weight-Bearing Restrictions: Sit/Stand weight-bearing as tolerated Assistive Device For Transfer: Sit/Stand armed chair Gait Skills, PT Eval Level of [place]: Gait (mod I) Weight-Bearing Restrictions: Gait weight-bearing as tolerated Assistive Device For Transfer: Gait 2 wheeled walker Gait Distance (600ft; patient demonstrates a good quality heel - toe pattern consistently throughtout treatment) Stair Negotiation [place] Level: Stair Negotiation supervision Physical Assist: Stair [...] 100mg 4.00 Total $ 20.60 Birgit Henriquez (Packager Hand) reviewed medications with patient regarding indications, directions [...] RA (rheumatoid arthritis) Skin cancer 2013 2017,2013 Existing Precautions/Restrictions fall;weight bearing (WBAT RLE; has [...] Sit to Stand, Rehab Eval Level of [place]: Sit/Stand contact guard Physical Assist/Nonphysical Assist: Sit/Stand 1 person assist Weight-Bearing Restrictions: Sit/Stand weight-bearing as tolerated Assistive Device for Transfer: Sit/Stand wheeled walker;armed chair Transfer Skill: Stand to Sit, Rehab Eval Level of [place]: Stand/Sit contact guard Physical Assist/Nonphysical Assist: Stand/Sit [...] Eval) ADL retraining;balance training;transfer training PRIOR LEVEL [facility] Activity Inpatient Short Form Putting on/Taking Off [...] Prior Functional Impairment in Daily [facility] Short Form Putting on/Taking Off Lower Body Clothing 3 - A Little Assistance Bathing 3 - A Little Assistance Toileting 3 - A Little Assistance Putting on/Taking Off Upper Body Clothing 3 - A Little Assistance Grooming 3 - A Little Assistance Eating 4 - No Assistance CURRENT [facility] Activity Raw Score 19 CURRENT [facility] Activity Functional Limitation/Modifier 42.80% Currently Impaired [...] initiation of treatment Therapist Information License # [id number] In addition to above, ambulated with CGA using FWW. Reclined in chair at end of session with his call light and personal items placed in reach. CLAUDIO Jacobo/Camron 03/16/2022 * Pato Gutierrez - 03/16/2022 11:46 AM EDT Pharmacy to Dose - Warfarin Note PATIENT: Tito Goncalves Room/Bed: [facility] Desired INR range: 2-3 Indication(s): Atrial Fibrillation Medications: No drug interactions were identified based on the patient's current therapy. Current Diet Status: Regular Recent bleeding/bleeding event: None noted Last labs: INR Date Value Ref Range Status 03/16/2022 1.37 (H) 0.85 - 1.10 Final Comment: 2.0-3.0 THERAPEUTIC RANGE 2.5-3.5 MECHANICAL VALVE RANGE Testing performed at [place], [place] [address] - ALBUMIN Date Value Ref Range Status 03/16/2022 3.3 (L) 3.5 - 5.0 G/dl Final - Plan: An order was placed for Coumadin 7.5 mg today x 1 based on INR = 1.37. A Pharmacist will continue to follow and make dose changes as clinically appropriate. Please contact pharmacy if there are any questions. Signed: Pato Gutierrez Pharmacist Phone: [phone] Date/Time: 03/16/2022 11:46 AM * Yashira Corbinraissa, PT - 03/16/2022 10:16 AM EDT 03/16/22 [...] 3/5) LLE WFL Supine to Sit Mobility [place] Level: Supine->Sit stand-by assist Physical Assist: Supine->Sit (1 person) Bed Features/Set-up: Supine->Sit Head of bed elevated Skilled Rationale Verbal cues;Sequencing Sit to Stand Transfer [place] Level: Sit->Stand stand-by assist Physical Assist: Sit->Stand (1 person) Assistive Device: Sit->Stand 2 wheeled walker;gait belt Skilled Rationale Verbal cues;Hand placement;Sequencing Stand to Sit Transfer [place] Level: Stand->Sit stand-by assist Physical Assist: Stand->Sit (1 person) Assistive Device: Stand->Sit 2 wheeled walker;gait belt Skilled Rationale Verbal cues;Hand placement;Sequencing;Controlled descent for sitting Sitting Balance Static Sitting-Level of Assistance Independent Standing Balance Static Standing-Level of Assistance Stand-by assist Dynamic Standing-Level of Assistance Stand-by assist Standing-Balance Support 2 wheeled walker;Gait belt Skilled Rationale Verbal cues;Full extension to upright positioning/posture;Upright gaze/neck extension Gait Assessment [place] Level: Gait contact guard assist Physical Assist: [...] ARTHROPLASTY KNEE TOTAL Left 06/23/2015 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 [...] (248 lb) 02/08/18 117.9 kg (260 lb) [place] body weight: 77.6 kg (171 lb 1.9 [...] plan. Patient plans to return home with [facility]. His daughter will be staying with him [...] and PT/INR management. Questions answered regarding [facility], patient denies any other questions or needs at this time. Referral information with orders for PT/INR faxed to [facility], spoke with staff who confirm start of care for tomorrow. Follow up appointment scheduled for 04/08/22 @ 10:00 am. * Grupo Morgan [facility],PharmD - 03/15/2022 6:24 PM EDT Pharmacy to Dose - Warfarin Note PATIENT: Tito Goncalves Room/Bed: [facility] Desired INR range: 2-3 Indication(s): Atrial Fibrillation Last labs: INR Date Value Ref Range Status 03/15/2022 1.36 (H) 0.85 - 1.10 Final Comment: 2.0-3.0 THERAPEUTIC RANGE 2.5-3.5 MECHANICAL VALVE RANGE Testing performed at [place], [place] [address] - ALBUMIN Date Value Ref Range Status 02/18/2022 3.8 3.5 - 5.0 G/dl Final - Plan: An order was placed for 5 mg based on current Home Dosage. A Pharmacist will continue to follow and make dose changes as clinically appropriate. Please contact pharmacy if there are any questions. Signed: Grupo Morgan RPh,PharmD, Pharmacist Phone: [phone] Date/Time: 03/15/2022 6:24 PM * Samantha Miner [...] EDT To: Archana Urena RN, Iftikhar Yip, DO Subject: ekg Pt is getting pcp clearance, Please review EKG and advise. Thanks! Let us know If you require anything further documented in [facility]* Nursing Notes - Dian Roberts [...] head home and settle in. [facility] Hospital Discharge instructions* Discharge Instructions* Kirsten [...] days or until therapeutic with results to [facility]. , Contact Office ([phone]) if: > Total Knee ROM < 90 [...] sent through Care Everywhere. * docusate (oral/rectal) (Pakistani) * oxycodone (Pakistani) documented in this [facility]06-21-2022 Note* Plan of Care - Regina Rios [...] discharge/transition of care. Outcome: Adequate for Discharge [facility]* Nursing Notes - Kirsten Crawford RN - 03/16/2022 11:39 AM EDT Assessment unchanged from previous by this nurse unless otherwise noted in flowsheet T [facility] Hospital course Narrative* Domenico Ferguson MD - 03/16/2022 8:54 AM EDT Images from the original note were not included. Discharge Summary Name: Tito Goncalves Age: 77 y.o. Birthday: 1945 Admit Date: 03/15/2022 8:10 AM Discharge Date: 03/16/2022 Discharge Time: 03/16/2022 Discharge Unit: [facility] Rehab unit Unit Length of [...] insulin restless leg. Kidney stones, admitted to [facility] for elective rig ht total knee [...] as: COUMADIN STOP taking these medications Glucosamine-Chondroitin 8932-2093 MG/30ML LIQD Follow-up: No follow-up provider specified. Upcoming Appointments (up to five)-Some appointments for Medical Center outpatient clinics or diagnostic testing locations are not displayed below Provider Department Dept Phone 04/08/2022 10:00 AM [facility] [phone] Total coordination of discharge care taking greater that 35 minutes documented in this [facility]06-21-2022 Note* Plan of Care - Birgit Thakur [...] Devices: pillows Note: IVÁN Ramirez, Foot pumps [facility] [place]06-21-2022 Note* Nursing Notes - Birgit Thakur RN - 03/16/2022 3:09 AM EDT Assessment remains unchanged unless otherwise noted in flow sheet. Pt denies pain. Neuro/pulses unchanged. New bag of NS hung at this time. Vitals WDL. Pt denies any needs and call light is in reach. [facility] [place]06-20-2022 Note* Nursing Notes - Birgit Thakur RN - 03/15/2022 11:59 PM EDT Assessment remains unchanged unless otherwise noted in flow sheet. Pt denies any pain. Neuro/pulsesunchanged. NS infusing @ 100ml/hr and Ancef administered. Pt denies any needs and call light is in reach. [facility]* Nursing Notes - Birgit Thakur RN - 03/15/2022 8:06 PM EDT RT called at this time due to O2 change from 1.5 to 1L. Pt also has home CPAP/BIPAP device. RT made[place]. [facility]* Nursing Notes - Araseli Ron RN - 03/15/2022 5:53 PM EDT Patient tolerating clear liquids at this time, diet advanced per orders. [facility]06[facility] Consult note* Domenico Ferguson MD - 03/15/2022 4:10 PM EDT History and Physical Examination 03/15/22 4:10 PM Chief Complaint: Right total knee arthroplasty History of Present Illness: Patient is a 77 y.o. male presents for [facility] for elective right total knee arthroplastyDr. [...] mg by mouth daily. Historical Provider Glucosamine-Chondroitin 6795-0004 MG/30ML Liquid Take by mouth. Historical Provider [...] 81 mg by mouth daily. 03/04/2022 Glucosamine-Chondroitin 3947-0552 MG/30ML Liquid Take by mouth. Multiple Vitamins-Minerals [...] and SW. Domenico Ferguson MD [facility]06-20-2022 Consult note* Domenico Ferguson MD - 03/15/2022 4:10 PM EDT History and Physical Examination 03/15/22 4:10 PM Chief Complaint: Right total knee arthroplasty History of Present Illness: Patient is a 77 y.o. male presents for [facility] for elective right total knee arthroplastyDr. [...] mg by mouth daily. Historical Provider Glucosamine-Chondroitin 3327-3506 MG/30ML Liquid Take by mouth. Historical Provider [...] 81 mg by mouth daily. 03/04/2022 Glucosamine-Chondroitin 6491-7736 MG/30ML Liquid Take by mouth. Multiple Vitamins-Minerals [...] Ferguson MD documented in this encounterMer[facility]22 Note* Nursing Notes - Araseli Ron RN - 03/15/2022 2:26 PM EDT Patient to OR at this time. [facility]* Nursing Notes - Araseli Ron RN - 03/15/2022 11:57 AM EDT Patient assessment unchanged from previous. Patient ambulated to bathroom and voided. Patient denies any needs at this time. Call light in reach. [facility]* Nursing Notes - Gini Medrano RN - 02/18/2022 1:25 PM EDT 02/18/22 1324 Information Source Information Source patient Contact Information Vp Organizational Development Name Gini Medrano RN Case Manager's Living [...] that he plans to return home with [facility]. The patient states that his daughter is [...] and assist with discharge plans. [facility]04-[facility] History of Present illness Narrative* Luis Wang, BEVERLY - 2022 1:10 PM EDT Ortho Nurse - Established Patient Intake Room#: 1 Right knee pain of 9, no interventions, falls, or injuries, came in today with left knee pain, left knee revision 2016 Dr Bedoya Date: 2022 1:06 PM Patient: Tito Goncalves MR#: [id number] : 1945 Age: 77 y.o. 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 PHYSICAL EXAM: This is an alert, [...] joint space, subchondral sclerosis, osteophyte formation, and utdw-zo-klij contact with posterior loosebodies. He has a [...] of limb, and ultimately loss of life. termite control servicer expectations, risks and general implant surv ivorship were also discussed. Despite these risks, the patient would like to proceed with surgical planning. Today, we will initiate the pre-surgical process including nasal MRSA screening, scheduling an appointment for [facility] and the potential surgical date, and reviewing [...] Swelling Sulfa Antibiotics Swelling documented in this encounterEvans Army Community HospitalDoremir Music Research [facility] [id number] Evaluation note* Encounter Date Diagnosis Assessment Notes Treatment Notes Treatment Clinical Notes Oct, Choledocholithiasis (ICD-10 - K80.50) Oct, Pancreatic cyst (ICD -10 - K86.2) [place] [employer] Other Evaluation + Plan note No data available for this section [facility] evaluation note* Diagnosis Right knee pain, unspecified chronicity- Primary Pain in prosthetic joint, sequela documented in this encounter [facility]* Diagnosis Preop testing- Primary Preoperative [...] Hyposmolality and/or hyponatremia [facility] [employer] Other Evaluation note* Diagnosis Hx of total knee arthroplasty, right- Primary documented in this encounter [facility]* Diagnosis Hx of total knee arthroplasty, right- Primary documented in this encounter [facility] noteN/ADept. of Dermatology Evaluation note* Diagnosis Hx of total knee arthroplasty, right- Primary documented in this encounter [facility]* Diagnosis 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- Primary Age-related nuclear cataract of both eyes Dry eyes Unspecified tear film insufficiency [facility] Diagnosis Onset Date Resolution Status Atrial fibrillation acute Chronic kidney disease acute GERD (gastroesophageal reflux disease) acute Hemopericardium acute Hypercholesterolemia acute Hypertension acute CUBA (obstructive sleep apnea) acute [facility] Work Phone: Evaluation note* Diagnosis Onset Date Resolution Status Atrial fibrillation acute Chronic kidney disease acute Hemopericardium acute Hypertension acute Obesity acute CUBA (obstructive sleep apnea) acute Cellulitis of right upper extremity noneactive [facility] Work Phone: evaluation note* Diagnosis Onset Date Resolution Status Atrial fibrillation acute Chronic kidney disease acute Hemopericardium acute Hypertension acute Obesity acute CUBA (obstructive sleep apnea) acute Cellulitis of right upper extremity noneactive Atrial fibrillation acute Chronic kidney disease acute Hypertension acute Obesity acute CUBA (obstructive sleep apnea) acute Type 2 diabetes mellitus with hyperglycemia acute [facility] Work Phone: Evaluation [...] Type 2 diabetes mellitus with hyperglycemia acute [facility] Work Phone: evaluation note* Diagnosis Onset Date [...] diabetes mellitus with hyperglycemia acute COVID noneactive [facility] Work Phone: Evaluation note* Diagnosis Onset Date Resolution Status Anemia acute Atrial fibrillation acute Chest pain acute Chronic kidney disease acute Hypertension acute CUBA (obstructive sleep apnea) acute Type 2 diabetes mellitus with hyperglycemia acute Hypertension acute Type 2 diabetes mellitus with hyperglycemia acute COVID noneactive Abrasion of ear canal acute [facility] Work Phone: Evaluation note* Diagnosis PLMD (periodic limb movement disorder)- Primary Periodic limb movement disorder CUBA (obstructive sleep apnea) Obstructive sleep apnea (adult) (pediatric) Daytime hypersomnolence Primary insomnia Persistent disorder of initiating or maintaining sleep Snoring Other dyspnea and respiratory abnormality documented in this encounter [facility]* Diagnosis Onset Date Resolution Status Hypertension acute Type 2 diabetes mellitus with hyperglycemia acute COVID noneactive Abrasion of ear canal acute Atrial fibrillation acute Chronic kidney disease acute Hypertension acute Obesity acute CUBA (obstructive sleep apnea) acute Type 2 diabetes mellitus with hyperglycemia acute [facility] Work Phone: Evaluation note* Diagnosis 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- Primary Age-related nuclear cataract of both eyes Dry eyes Unspecified tear film insufficiency documented in this encounter [facility] HealthcareEvaluation note* Diagnosis 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- Primary Dry eyes Unspecified tear film insufficiency Age-related nuclear cataract of both eyes Type 2 diabetes mellitus without complication, without long-term current use of insulin ([facility]) documented in this encounter [facility]* Diagnosis Seborrheic keratosis Melanocytic nevus of trunk Benign neoplasm of skin of trunk, except scrotum Lentigines Capillary angioma Nevus, non-neoplastic Telangiectasia of face Actinic keratosis Seborrheic keratosis, inflamed History of malignant melanoma of skin Personal history of malignant melanoma of skin documented in this encounter [facility] HealthcareEvaluation note* Diagnosis CUBA (obstructive sleep apnea)- Primary Obstructive sleep apnea (adult) (pediatric) PLMD (periodic limb movement disorder) Periodic limb movement disorder Daytime hypersomnolence Snoring Other dyspnea and respiratory abnormality Primary insomnia Persistent disorder of initiating or maintaining sleep [facility]* Diagnosis Neoplasm of unspecified behavior of bone, soft tissue, and skin- Primary [facility]* Diagnosis Basal cell carcinoma (BCC) of dorsum of nose [facility]* Diagnosis Mohs defect of nose- Primary [facility]* Diagnosis Age-related nuclear cataract of both eyes- Primary [facility]* Diagnosis Age-related nuclear cataract of both eyes- Primary 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 [facility]* Diagnosis Skin cancer of nose- Primary Other malignant neoplasm of skin of other and unspecified parts of face documented in this [facility]* Diagnosis Melanocytic nevus of trunk- Primary Benign neoplasm of skin of trunk, except scrotum Melanocytic nevus of lower extremity, unspecified laterality Seborrheic keratosis Lentigines Capillary angioma Nevus, non-neoplastic Telangiectasia of face Sebaceous hyperplasia of face History of malignant melanoma of skin Personal history of malignant melanoma of skin History of basal cell carcinoma Personal history of other malignant neoplasm of skin Actinic keratosis documented [facility]* Diagnosis Onset Date Resolution Status Admit Date Anemia acute January 09 9:37am Atrial fibrillation acute January 09, 2025 9:37am Chronic kidney disease acute Ap 2024 9:37am Diabetes mellitus with diabe tic polyneuropathy acute January 09, 2025 9:37am GERD (gastroesophageal reflu x disease) acute January 09, 2025 9:37am Hypertension acute January 09, 2025 9:37am Obesity acute January 09 9:37am CUBA (obstructive sleep apnea) acute January 09, 2025 9:37am Type 2 diabetes mellitus wit h hyperglycemia acute January 09, 2025 9:37am [facility] Work Phone: History general Narrative - Reported* Type Description Date Medical History hyperlipidemia Medical History GERD Medical History HTN Medical History a.fib Medical History recurrent choledocholithiasis Surgical History LEFT KNEE Surgical History CHOLECYSTECTOMY 2012 Hospitalization History see above [facility] Other [facility] general Narrative - Reported* Type Description Date [...] stone removal 10/2022 Hospitalization History see above [facility] Other [facility] general Narrative - Reported* Type Description Date [...] stone removal 10/2022 Hospitalization History see above [facility] Other History general Narrative - Reported* Type [...] History Colonoscopy 2020 Hospitalization History see above [facility] Other Hospital Discharge instructions Additional Instructions 1. Sleep on 2 pillows 2. You may shower late tomorrow afternoon, keep wounds dry and clean 3. Small amount of Vaseline to sutures twice daily 4. Tylenol or Motrin for discomfort 5. See Dr. Freitas in 1 [facility] Work Phone: Hospital Discharge instructions Additional Instructions sleep on 2 pillows ok to shower tomorrow am, keep wound dry and clean small amount of vasaline to sutures [address] Freitas in 1 [facility] Work Phone: Progress note No data available for this section [facility] reason for referral (narrative)* Name Reason for referral NA NA Dept. of Dermatology Reason for visit Narrative* Auth/Cert Specialty Diagnoses / Procedures Referred By Contac t Referred To Contact Diagnoses Osteoarthritis of right knee, unspecified osteoarthritis type Osteoarthritis of right knee, unspecified osteoarthritis type [M17.11] Procedures GA TOTAL KNEE ARTHROPLASTY ARTHROPLASTY KNEE TOTAL Pastor Bedoya MD [address] [place] [address] Referral ID Status Reason Start Date Expiration Date Visits Re quested Visits Authorized [id number] 02/01/2022 1 1 Freezing Point Summary Purpose Family History Relationship Condition Age at Onset Recorded Date/T [...] Unknown Malignant neoplasm of breast Unknown father Diabetes mellitus Unknown Heart disease Unknown Advance Directives Latest Code Status on File Code Status Date Activated Date Inactivated Comments Full Code 03/15/2022 4:44 PM Latest Code Status on File Code Status Date Activated Date Inactivated Comments Full Code 03/15/2022 4:44 PM Advance Directive Response Recorded Date/ Time Advance Directives No November 04, 2021 2:26pm Advance Directive Response Recorded Date/ Time Advance Directives No April 02 12:19pm Advance Directive Response Recorded Date/ Time Advance Directives No April 02 11:19am Reason for Referral Status Reason Specialty Diagnoses / Procedures Referred By Contact Referred To Contact New Request Diagnoses History of revision of total replacement of left knee joint Procedures XR KNEE LEFT 3 VIEWS Azul Rcahel, INFORMATICS EDUCATOR-PASTOR [address] [place] [address] Specialty Diagnoses / Procedures Referred By Contac t Referred To Contact Diagnoses Pain in prosthetic joint, sequela Procedures XR KNEE LEFT 3 VIEWS Pastor Bedoya MD [address] [place] [address] Referral ID Status Reason Start Date Expiration Date V isits Requested Visits Authorized [id number] New Request 2022 02/15/2023 1 1 Specialty Diagnoses / Procedures Referred By Contac t Referred To Contact Diagnoses Right knee pain, unspecified chronicity Procedures XR KNEE RIGHT 4+ VIEWS Pastor Bedoya MD [address] [place] [address] Referral ID Status Reason Start Date Expiration Date V isits Requested Visits Authorized [id number] New Request 01/15/2022 02/09/2023 1 1 Specialty Diagnoses / Procedures Referred By Contac t Referred To Contact Social Work Diagnoses Restless leg syndrome Stage 3a chronic kidney disease S/P total knee arthroplasty, right Paroxysmal atrial fibrillation Type 2 diabetes mellitus without complication, without long-term current use of insulin Domenico Ferguson MD [address] [place] [address] Referral ID Status Reason Start Date Expiration Date V isits Requested Visits Authorized [id number] New Request 03/16/2022 04/10/2023 1 1 Specialty Diagnoses / Procedures Referred By Contac t Referred To Contact Diagnoses Acute postoperative pain of right knee Samantha Miner [address] [place] [address] Referral ID Status Reason Start Date Expiration Date V isits Requested Visits Authorized [id number] New Request 03/15/2022 04/09/2023 1 1 Scheduling Instructions . Specialty Diagnoses / Procedures Referred By Contac t Referred To Contact Physical Therapy Diagnoses Hx of total knee arthroplasty, right VirginieAzul, INFORMATICS EDUCATOR-PASTOR [address] [place] [address] [facility] [address] [place] [address] Referral ID Status Reason Start Date Expiration Date V isits Requested Visits Authorized [id number] New Request 04/08/2022 05/03/2023 1 1 Specialty Diagnoses / Procedures Referred By Contac t Referred To Contact Diagnoses Hx of total knee arthroplasty, right Procedures XR KNEE RIGHT 3 VIEWS VirginieAzul ramirez, INFORMATICS EDUCATOR-PASTOR [address] [place] [phone] Referral ID Status Reason Start Date Expiration Date V isits Requested Visits Authorized [id number] New Request 03/31/2022 04/25/2023 1 1 Specialty Diagnoses / Procedures Referred By Contac t Referred To Contact Diagnoses Hx of total knee arthroplasty, right Procedures XR KNEE RIGHT 3 VIEWS Pastor Bedoya MD [address] [place] [address] Referral ID Status Reason Start Date Expiration Date V isits Requested Visits Authorized [id number] New Request 07/02/2022 07/27/2023 1 1 Specialty Diagnoses / Procedures Referred By Contac t Referred To Contact Diagnoses Hx of total knee arthroplasty, right Procedures XR BONE LENGTH STUDY Pastor Bedoya MD [address] [place] [address] Referral ID Status Reason Start Date Expiration Date V isits Requested Visits Authorized [id number] New Request 07/02/2022 07/27/2023 1 1 Referral ID Status Reason Start Date Expiration Date V isits Requested Visits Authorized [id number] New Request 03/15/2023 04/08/2024 1 1 History [...] have reviewed the findings of the clinical user support specialist and agree with their assessment. Ortho Nurse Established Patient Intake Room#: 5 Date: 03/20/2020 11:10 AM Patient: Tito Goncalves MR#: [id number] : 1945 Age: 75 y.o. 3 yr [...] 03/20/2020 11:10 AM Patient: Tito Goncalves MR#: [id number] : 1945 Age: 75 y.o. 3 yr [...] follow up [facility] follow up, chest pain [phone] sinus problems Reason for Visit Atrial fibrillation Chronic kidney disease Hypertension Obesity CUBA (obstructive sleep apnea) Type 2 diabetes mellitus with hyperglycemia Anemia Atrial fibrillation Chest pain Chronic kidney disease Hypertension CUBA (obstructive sleep apnea) Type 2 diabetes mellitus with hyperglycemia Hypertension Type 2 diabetes mellitus with hyperglycemia COVID Chief Complaint [facility] follow up, chest pain [phone] sinus problems Rt ear pain Reason for Visit Anemia Atrial fibrillation Chest pain Chronic kidney disease Hypertension CUBA (obstructive sleep apnea) Type 2 diabetes mellitus with hyperglycemia Hypertension Type 2 diabetes mellitus with hyperglycemia COVID Abrasion of ear canal Chief Complaint [phone] sinus p roblems Rt ear pain wellness Reason for Visit Hypertension Type 2 diabetes mellitus with hyperglycemia COVID Abrasion of ear canal Atrial fibrillation Chronic kidney disease Hypertension Obesity CUBA (obstructive sleep apnea) Type 2 diabetes mellitus with hyperglycemia Chief Complaint Admit Date Adult Risk Stratification August 142023 1:41pm 6 weeks August 21, 2024 9:08am 3 month f/u October 10, 2024 8 :18am Reason for Visit Admit Date Anemia August 21, 2024 9:08am Atrial fibrillation August 21, 2024 9:08am Chronic kidney disease August 21 9:08am GERD (gastroesophageal reflux disease) N ovember 2023 9:08am Hypertension August 21, 2024 9:08am Obesity August 21, 2024 9:08am CUBA (obstructive sleep apnea) July 282023 9:08am Type 2 diabetes mellitus with hyperglyce olga August 21, 2024 9:08am Atrial fibrillation October 10, 2024 8 :18am Chronic kidney disease October 10 8:18am GERD (gastroesophageal reflux disease) J anuary 2024 8:18am Hypertension October 10, 2024 8 :18am Obesity October 10, 2024 8 :18am CUBA (obstructive sleep apnea) October 102024 8:18am Type 2 diabetes mellitus with hyperglyce [facility] October 10, 2024 8:18am Chief Complaint Admit Date CC Adult Risk Stratification August 142023 1:41pm 6 weeks August 21, 2024 9:08am 3 month f/u October 10, 2024 8 :18am nasal wound October 17, 2024 2 :14pm Reason for Visit Admit Date Anemia August 21, 2024 9:08am Atrial fibrillation August 21, 2024 9:08am Chronic kidney disease August 21 9:08am GERD (gastroesophageal reflux disease) N ovember 2023 9:08am Hypertension August 21, 2024 9:08am Obesity August 21, 2024 9:08am CUBA (obstructive sleep apnea) July 282023 9:08am Type 2 diabetes mellitus with hyperglyce olga August 21, 2024 9:08am Anemia October 10, 2024 8 :18am Atrial fibrillation October 10, 2024 8 :18am Chronic kidney disease October 10 8:18am Diabetes mellitus with diabetic polyneur opathy October 10, 2024 8:18am GERD (gastroesophageal reflux disease) J anuary 2024 8:18am Hypertension October 10, 2024 8 :18am Obesity October 10, 2024 8 :18am CUBA (obstructive sleep apnea) October 102024 8:18am Type 2 diabetes mellitus with hyperglyce olga October 10, 2024 8:18am Chief Complaint Admit Date CC Adult Risk Stratification August 142023 1:41pm 6 weeks August 21, 2024 9:08am 3 month f/u October 10, 2024 8 :18am nasal wound October 17, 2024 2 :14pm nasal wound October 22, 2024 7 :09am Chief Complaint Admit Date nasal wound October 17, 2024 2 :14pm nasal wound October 22, 2024 7 :09am 3 month f/u January 09, 2025 9:3 7am Reason for Visit Admit Date Anemia January 09, 2025 9:3 7am Atrial fibrillation January 09, 2025 9:3 7am Chronic kidney disease January 09, 2025 9:37am Diabetes mellitus with diabetic polyneur opathy January 09, 2025 9:37am GERD (gastroesophageal reflux disease) A pril 2024 9:37am Hypertension January 09, 2025 9:3 7am Obesity January 09, 2025 9:3 7am CUBA (obstructive sleep apnea) December 9:37am Type 2 diabetes mellitus with hyperglyce olga January 09, 2025 9:37am Additional Source Comments (unrecognized sect ion and content) No Status Records FoundNo Status Records FoundNo Status Records FoundNo Status Records FoundNo Status Records FoundNo Status Records FoundNo Status Records FoundNo Status Records FoundNo Status Records FoundNo Status Records FoundNo Status Records FoundNo Status Records Found INFORMATION SOURCE (unrecogn ized section and content) DATE CREATED AUTHOR 03/21/2018 [facility] DATE CREATED AUTHOR AUTHOR'S ORGANIZ ATION 06/15/2019 [facility] DATE CREATED AUTHOR AUTHOR'S ORGANIZ ATION 03/25/2022 [facility] DATE CREATED AUTHOR AUTHOR'S ORGANIZ ATION 05/04/2022 [facility] DATE CREATED AUTHOR AUTHOR'S ORGANIZ ATION 10/04/2022 [facility] DATE CREATED AUTHOR AUTHOR'S ORGANIZ ATION 02/02/2023 [facility] DATE CREATED AUTHOR AUTHOR'S ORGANIZ ATION 03/05/2023 [facility] DATE CREATED AUTHOR AUTHOR'S ORGANIZ ATION 03/20/2023 [facility] DATE CREATED AUTHOR AUTHOR'S ORGANIZ ATION 07/12/2023 [facility] DATE CREATED AUTHOR AUTHOR'S ORGANIZ ATION 07/13/2024 [facility] DATE CREATED AUTHOR AUTHOR'S ORGANIZ ATION 11/04/2024 [facility] DATE CREATED AUTHOR AUTHOR'S ORGANIZ ATION 01/04/2025 [facility] EPIC Reason for Visit (unrecogniz ed section and content) Reason Comments Follow-up Status Reason Specialty Diagnoses / Procedures Referred By Contact Referred To Contact New Request Diagnoses History of revision of total replacement of left knee joint Procedures XR KNEE LEFT 3 VIEWS Azul Rachel, INFORMATICS EDUCATOR-PASTOR [address] [place] [address] Reason Comments Pain Specialty Diagnoses / Procedures Referred By Contac t Referred To Contact Diagnoses Pain in prosthetic joint, sequela Procedures XR KNEE LEFT 3 VIEWS Pastor Bedoya MD [address] [place] [address] Referral ID Status Reason Start Date Expiration Date V isits Requested Visits Authorized [id number] New Request 2022 02/15/2023 1 1 Specialty Diagnoses / Procedures Referred By Contac t Referred To Contact Diagnoses Right knee pain, unspecified chronicity Procedures XR KNEE RIGHT 4+ VIEWS Pastor Bedoya MD [address] [place] [address] Referral ID Status Reason Start Date Expiration Date V isits Requested Visits Authorized [id number] New Request 01/15/2022 02/09/2023 1 1 Specialty Diagnoses / Procedures Referred By Contac t Referred To Contact Diagnoses Hx of total knee arthroplasty, right Procedures XR KNEE RIGHT 3 VIEWS Azul Rachel, INFORMATICS EDUCATOR-PASTOR [address] [place] [address] Referral ID Status Reason Start Date Expiration Date V isits Requested Visits Authorized [id number] New Request 03/31/2022 04/25/2023 1 1 Reason Comments Post Op Visit Specialty Diagnoses / Procedures Referred By Bret t Referred To Contact Diagnoses Hx of total knee arthroplasty, right Procedures XR KNEE RIGHT 3 VIEWS Pastor Bedoya MD [address] [facility] [place] [address] Referral ID Status Reason Start Date Expiration Date V isits Requested Visits Authorized [id number] New Request 07/02/2022 07/27/2023 1 1 Referral ID Status Reason Start Date Expiration Date V isits Requested Visits Authorized [id number] New Request 03/15/2023 04/08/2024 1 1 Reason Comments Retinal Injection Reason Comments Sleep Apnea Reason Comments Follow-up Macular Degeneration Reason Comments Follow-up Reason Comments PLMD Reason Comments Mohs Micrographic Surgery Reason Comments Mohs Reconstruction Mohs scalp Reason Comments Post-op Post op mohs repair Nose Reason Onset Date Comments Med Refill 12/28/2024 Reason Comments Follow-up Macular Degeneration Cataract Reason Comments Post-op 2 month lachelle Mohs no se Reason Comments Skin Check Care Teams (unrecognized sec tion and content) Team Status: Active Member Role Status Dates Augustine Metz DO Primary Care Provider Active Team Status: Inactive Member Role Status Dates Augustine Metz DO Primary Care Provider Active Start: October 17, 2024 End: October 17, 2024 Augustine Freitas DO Attending Provider Active S tart: October 17, 2024 End: October 17, 2024 Team Status: Inactive Member Role Status Dates Augustine Metz DO Primary Care Provider Active Start: October 22, 2024 End: October 22, 2024 Augustine Freitas DO Attending Provider Active S tart: October 22, 2024 End: October 22, 2024 Team Status: Inactive Member Role Status Dates Augustine Metz DO Primary Care Provide r, Attending Provider Active Start: January 09, 2025 End: January 09, 2025 Team Status: Active Member Role Status Dates [...] End: June 04, 2024 Blanca Lay APRN HYPNOTHERAPIST-C Attending Provider Active Start: May End: June 04, 2024 Team Status: Inactive Member Role Status Dates Augustine Metz DO Primary Care Provider Active Start: February 16, 2024 End: February 16, 2024 Augustine Freitas , Attending Provider Active S tart: February 16, 2024 End: February 16, 2024 Team Status: Inactive Member Role Status Dates Augustine Metz DO Primary Care Provider Active Start: February 24, 2024 End: February 24, 2024 Augustine Freitas , Attending Provider Active S tart: February 24, 2024 End: February 24, 2024 Team Status: Inactive Member Role Status Dates Augustine Metz DO Primary Care Provide r, Attending Provider Active Start: February 27, 2024 End: February 27, 2024 Process Machine Operator Relationship Specialty Start Date End Date Augustine Metz DO [address] [place] [phone] PCP - General Internal Medicine 01/24/17 Process Machine Operator Relationship Specialty Start Date End Date Augustine MetzDO [address] [place] [address] PCP - General Internal Medicine 01/24/17 Process Machine Operator Relationship Specialty Start Date End Date Augustine Metz, DO [address] [facility] [place] [address] PCP - General Internal Medicine 01/24/17 Process Machine Operator Relationship Specialty Start Date End Date Augustine Metz, DO [address] [facility] [place] [address] PCP - General Internal Medicine 01/24/17 Process Machine Operator Relationship Specialty Start Date End Date Augustine Metz, DO [address] [facility] [place] [address] PCP - General Internal Medicine 01/24/17 Process Machine Operator Relationship Specialty Start Date End Date Augustine Metz, DO [address] [facility] [place] [address] PCP - General Internal Medicine 01/24/17 Process Machine Operator Relationship Specialty Start Date End Date Augustine Metz, DO [address] [facility] [place] [address] PCP - General Internal Medicine 01/24/17 Process Machine Operator Relationship Specialty Start Date End Date Augustine Metz DO [address] [facility] [place] [address] PCP - General Internal Medicine 01/24/17 Process Machine Operator Relationship Specialty Start Date End Date Augustine Metz DO [address] [facility] [place] [address] PCP - General Internal Medicine 01/24/17 Process Machine Operator Relationship Specialty Start Date End Date Augustine Metz MD [address] [place] [address] PCP - General Internal Medicine 06/02/23 Process Machine Operator Relationship Specialty Start Date End Date Augustine Metz MD [address] [place] [address] PCP - General Internal Medicine 06/02/23 Team [...] January 31, 2024 End: January 31, 2024 Process Machine Operator Relationship Specialty Start Date End Date Augustine Metz MD [address] [place] [address] PCP - General Internal Medicine 06/02/23 Christin Bolton MD [address] [place] [address] Referring Physician Dermatology 02/15/24 Augustine Freitas DO [address] [place] [address] Otolaryngology 02/15/24 Process Machine Operator Relationship Specialty Start Date End Date Augustine Metz MD [address] [place] [address] PCP - General Internal Medicine 06/02/23 Christin Bolton MD [address] [place] [address] Referring Physician Dermatology 02/15/24 Augustine Freitas DO [address] [place] [address] Otolaryngology 02/15/24 Team Status: Active Member Role Status Dates Augustine Metz DO Primary Care Provide r, Attending Provider Active Start: June 27, 2024 Team Status: Inactive Member Role Status Dates Augustine Metz DO Primary Care Provide r, Attending Provider Active Start: July 09, 2024 End: July 09, 2024 Process Machine Operator Relationship Specialty Start Date End Date Augustine Metz MD PCP - General Internal Medicine 06/02/23 Christin Bolton MD [address] [facility] [address] [place] [address] Referring Physician Dermatology 02/15/24 Augustine Freitas DO [address] [place] [address] Otolaryngology 02/15/24 Process Machine Operator Relationship Specialty Start Date End Date Augustine Metz MD PCP - General Internal Medicine 06/02/23 Christin Bolton MD [address] [facility] [address] [place] [address] Referring Physician Dermatology 02/15/24 Augustine Freitas DO [address] [place] [address] Otolaryngology 02/15/24 Process Machine Operator Relationship Specialty Start Date End Date Augustine Metz MD [address] [place] [address] PCP - General Internal Medicine 06/02/23 Christin Bolton MD [address] [place] [address] Referring Physician Dermatology 02/15/24 Augustine Freitas DO [address] [place] [address] Otolaryngology 02/15/24 Process Machine Operator Relationship Specialty Start Date End Date Augustine Metz MD [address] [place] [address] PCP - General Internal Medicine 06/02/23 Christin Bolton MD [address] [place] [address] Referring Physician Dermatology 02/15/24 Augustine Freitas DO [address] [place] [address] Otolaryngology 02/15/24 Process Machine Operator Relationship Specialty Start Date End Date Augustine Metz MD [address] [place] [address] PCP - General Internal Medicine 06/02/23 Christin Bolton MD [address] [place] [address] Referring Physician Dermatology 02/15/24 Augustine Freitas DO [address] [place] [address] Otolaryngology 02/15/24 Process Machine Operator Relationship Specialty Start Date End Date Augustine Metz MD [address] [place] [address] PCP - General Internal Medicine 06/02/23 Christin Bolton MD [address] [place] [address] Referring Physician Dermatology 02/15/24 Augustine Freitas DO [address] [place] [address] Otolaryngology 02/15/24 Process Machine Operator Relationship Specialty Start Date End Date Augustine Metz MD [address] [place] [address] PCP - General Internal Medicine 06/02/23 Christin Bolton MD [address] [place] [address] Referring Physician Dermatology 02/15/24 Augustine Freitas, [address] [place] [address] Otolaryngology 02/15/24 Process Machine Operator Relationship Specialty Start Date End Date Augustine Metz MD [address] [place] [address] PCP - General Internal Medicine 06/02/23 Christin Bolton MD [address] [place] [address] Referring Physician Dermatology 02/15/24 Augustine Freitas DO [address] [place] [address] Otolaryngology 02/15/24 Process Machine Operator Relationship Specialty Start Date End Date Augustine Metz MD [address] [place] [address] PCP - General Internal Medicine 06/02/23 Christin Bolton MD [address] [place] [address] Referring Physician Dermatology 02/15/24 Augustine Freitas DO [address] [place] [address] Otolaryngology 02/15/24 Process Machine Operator Relationship Specialty Start Date End Date Augustine Metz MD [address] [place] [address] PCP - General Internal Medicine 06/02/23 Christin Bolton MD [address] [facility] [address] [place] [address] Referring Physician Dermatology 02/15/24 Augustine Freitas DO [address] [place] [address] Otolaryngology 02/15/24 Team Status: Active Member Role Status Dates Augustine Metz DO Primary Care Provide r, Attending Provider Active Start: August 14, 2024 Team Status: Inactive Member Role Status Dates Augustine Metz DO Primary Care Provide r, Attending Provider Active Start: August 21, 2024 End: August 21, 2024 Team Status: Inactive Member Role Status Dates Augustine Metz DO Primary Care Provide r, Attending Provider Active Start: October 10, 2024 End: October 10, 2024 Process Machine Operator Relationship Specialty Start Date End Date Augustine Metz MD [address] [place] [address] PCP - General Internal Medicine 06/02/23 Christin Bolton MD [address] [place] [address] Referring Physician Dermatology 02/15/24 Augustine Freitas DO [address] [place] [address] Otolaryngology 02/15/24 Process Machine Operator Relationship Specialty Start Date End Date Augustine Metz MD [address] [facility] [place] [address] PCP - General Internal Medicine 06/02/23 Christin Bolton MD [address] [place] [address] Referring Physician Dermatology 02/15/24 Augustine Freiats DO [address] [place] [address] Otolaryngology 02/15/24 Process Machine Operator Relationship Specialty Start Date End Date Augustine Metz MD [address] [facility] [place] [id number] PCP - General Internal Medicine 06/02/23 Christin Bolton MD [address] [place] [address] Referring Physician Dermatology 02/15/24 Augustine Freitas DO [address] [place] [address] Otolaryngology 02/15/24 Team Status: Inactive Member Role Status Dates Augustine Metz DO Primary Care Provider Active Start: October 17, 2024 End: October 17, 2024 Augustine Freitas DO Attending Provider Active S tart: October 17, 2024 End: October 17, 2024 Team Status: Inactive Member Role Status Dates Augustine Metz DO Primary Care Provider Active Start: October 22, 2024 End: October 22, 2024 Augustine Freitas DO Attending Provider Active S tart: October 22, 2024 End: October 22, 2024 Process Machine Operator Relationship Specialty Start Date End Date Augustine Metz [place] [facility] [id number] PCP - General Internal Medicine 06/02/23 Christin Bolton MD [address] [facility] [address] [place] [address] Referring Physician Dermatology 02/15/24 Augustine Freitas DO [address] [place] [address] Otolaryngology 02/15/24 Paulina Barboza OD [address] [place] [address] Referring Physician Optometry 12/28/24 Process Machine Operator Relationship Specialty Start Date End Date Augustine Metz MD [address] [place] [address] PCP - General Internal Medicine 06/02/23 Christin Bolton MD [address] [place] [address] Referring Physician Dermatology 02/15/24 Augustine Freitas, DO [address] [place] [address] Otolaryngology 02/15/24 Paulina Barboza, OD [address] [place] [address] Referring Physician Optometry 12/28/24 Process Machine Operator Relationship Specialty Start Date End Date Augustine Metz MD [address] [facility] [place] [id number] PCP - General Internal Medicine 06/02/23 Christin Bolton MD [address] [facility] [address] [place] [address] Referring Physician Dermatology 02/15/24 Augustine Freitas, DO [address] [place] [address] Otolaryngology 02/15/24 Paulina Barboza, OD [address] [facility] [place] [address] Referring Physician Optometry 12/28/24 Process Machine Operator Relationship Specialty Start Date End Date Augustine Metz MD [address] [facility] [place] [address] PCP - General Internal Medicine 06/02/23 Christin Bolton MD [address] [place] [address] Referring Physician Dermatology 02/15/24 Augustine Freitas DO [address] [place] [address] Otolaryngology 02/15/24 Paulina Barboza OD [address] [place], [place] [id number] Referring Physician Optometry 12/28/24 Process Machine Operator Relationship Specialty Start Date End Date Augustine Metz MD [address] [place] [phone] PCP - General Internal Medicine 06/02/23 Christin Bolton MD [address] [facility] [address] [place] [address] Referring Physician Dermatology 02/15/24 Augustine Freitas DO [address] [place] [address] Otolaryngology 02/15/24 Paulina Barboza OD [address] [place] [address] Referring Physician Optometry 12/28/24 Team Status: Inactive Member Role Status Dates Augustine Metz DO Primary Care Provide r, Attending Provider Active Start: January 09, 2025 End: January 09, 2025 Scheduled Active and Recently Administ ered Medications [...] Birgit Thakur RN) 0309 (Given - Provider: Birigt Thakur RN)0811 (Given - Provider: Kirsten Crawford, [...] blood pressure less than 1 20 mmHg 08 (Given - Provid er: Kirsten Crawford RN) [...] to the hypoglycemia management protocol on [employer]: Q-UU-Yspetsphuvhm Management Protocol insulin regular (HumuLIN R;NovoLIN R) [...] Provider: Araseli Ron RN - Reason: Patient/family refused)210 (Given - Provider: Birgit Thakur RN - [...] RN) 030 (Given - Provider: Birgit Thakur, ROMAINE)144 (Given - Provider: Kirsten Crawford, RN - [...] Thakur RN)0715 (Rate/Dose Verify - Provider: Regina Rois RN - Comment: dial set at 2mg/mlverified [...] 2 g, Intravenous, Administer over 30 Minutes, [employer] COOK TO PROCEDURE, 1 dose, Starting on Tue03/15/22 [...] less than 60 mg/ml. If unresponsive call ETCHER APPRENTICE HYDROmorphone (DILAUDID) injection 0.5 mg 0.5 mg, [...] to the hypoglycemia management protocol on [employer]: B-CH-Feeuslsntenk Management Protocol
And dextrose 10% IV solution [...] less than 60 mg/ml. If unresponsive call ETCHER APPRENTICE
And NOTIFY PHYSICIAN, Blood Glucose LESS THAN 70 mg/dl or greater than 400 mg/dl (CANCELED) Routine, CONTINUOUS, Starting on Tue03/15/22 at 1255, Until Specified
Who to Notify: HYPNOTHERAPIST/Physician
For all Blood Glucose LESS THAN 70 mg/dl, or greater than 400 mg/dl notify HYPNOTHERAPIST/Physician Goals (unrecognized section and content) Goals may [...] BE BASED ON THE PRIMARY CLINICAL RECORDS. [employer] provides no warranty or guarantee of the accuracy or completeness of information in this document.
[2025-01-09 11:54] LABS: Estimated Average Glucose 186 mg/dL; Glycohemoglobin A1C 8.1 % (4.5-6.2)
[2025-01-09 11:55] LABS: Atypical Lymphocytes Abs Man 0.12; Lymphocytes Absolute Manual 1.42 10^3/uL (1.20-3.80); Monocytes Absolute Manual 0.24 10^3/uL (0.30-0.80)
== END 2025-01-09 11:13 | disposition home or self-care (01) ==
LOC: LAB 11:15
PROVIDERS: PCP Internal Medicine; Visit Provider Internal Medicine
DX: D50.0 Iron deficiency anemia secondary to blood loss (chronic) (principal); E11.65 Type 2 diabetes mellitus with hyperglycemia
CPT/HCPCS: 36415; 83036; 85007; 85027

== ENCOUNTER 2025-01-11 07:36 | Outpatient (OUT) | payer MEDICARE, OTHER, SELFPAY ==
--- OUTSIDE RECORDS SUMMARY | 2025-01-11 07:43 | XMS_ITS | CCD ---
Author Organization [facility] Informat ion Partnership [facility] Care Team Providers Care Chef Assistant Name Role Phone GENE FAJARDO Admitting Unavailable GENE FAJARDO Attending Unavailable AUGUSTINE METZ Primary Care Unavailable RYAN CARDENAS Referring Unavailable Augustine Metz Primary Care Provider Augustine Metz DO Primary Care Provider [phone] Augustine Metz DO Primary Care Provider [phone] Carmen Kahn Unavailable AUGUSTINE METZ Primary Care Physician [phone] Augustine Metz DO Primary Care Provider [phone] Damari Rojas Unavailable Unavailable Alyssa, Mago Osman [...] FAWWAD, CARTER H Admitting Unavailable BALL, DR PREEZ Primary Care Unavailable FAWWAD, CARTER H Attending [...] S Admitting Unavailab Colin Tong Attending Unavailab Augustine Ruby MD Primary Care Provider DO Augustine Metz Primary Care Provider DO Augustine Freitas Attending Provider Augustine Metz MD Primary Care Provider Christin Bolton MD Unavailable Augustine Freitas DO Unavailable RAJESH, LIONEL Referring Unavailable RAJESH, LIONEL Referring Unavailable RAJESH, LIONEL Referring Unavailable BRIGITTE PERRY Referring Unavailab OLIVER Matthews Referring Unavailable [...] Provider Augustine Metz DO Primary Care Provider [phone] Augustine Freitas DO Attending Provider Murcek, Augustine [...] Unavailable Augustine Metz DO Primary Care Provider Augustine Freitas DO Attending Provider Allergies Allergy Classification Reported Allergen(s) Allergy Type Date of Onset Reaction(s) Facility Iodine (and Iodine containting drugs) (1 source) Iodine Drug Allergy 04-04-20 24 Unknown Reaction [facility] Penicillins (antibiotic) (1 source) Penicillins Drug Allergy 04-04-20 [facility] Shellfish (2 sources) Shellfish Food Allergy 04-04-20 24 Unknown Reaction [facility] Sulfonamides (antibiotic) (1 source) Sulfonamides (Antibiotic) Drug Allergy 04-04-20 24 [facility] (20 sources) Iodine; Translations: [iodine] Drug Allergy 08-31-20 09 Unknown, Unknown Reaction, Swelling of Lip/Tongue/Thr oat [facility] Rep[facility] (14 sources) Penicillins; Translations: [PENICILLINS] Drug allergy (disorder) 08-01-19 63 Unknown Reaction, Hives [facility] (14 sources) Sulfonamides (Antibiotic); Translations: [SULFA (SULFONAMIDE ANTIBIOTICS)] Drug allergy (disorder) 08-31-19 93 Swelling [facility] (2 sources) Shellfish Containing Products; Translations: [Shellfish Containing Products] Food allergy (disorder) 08-31-20 09 [facility] (20 sources) Iodine; Translations: [iodine] Drug Allergy 08-31-20 09 Swelling, Unknown (qualifier value), Anaphylaxis [employer] (20 sources) Penicillin G Drug Allergy 10-20-19 13 Hives [employer] (20 sources) Shellfish Propensity to adverse reactions to drug 08-31-20 09 Swelling, Other [employer] (12 sources) Sulfonamides (Antibiotic) Propensity to adverse reactions to drug 10-20-19 13 [facility] Penicillins (Antibiotic) Drug allergy Unknown [employer] Other (20 sources) Shrimp product Propensity to adverse reactions 01-31-20 24 Unknown, Unknown Reaction, Swelling of Lip/Tongue/Thr oat [facility] (11 sources) Sulfonamides (Antibiotic) Drug allergy Unknown [employer] Other (5 sources) Penicillin; Translations: [penicillin] Drug Allergy Unknown (qualifier value) [facility] (1 source) Sulfonamides (Antibiotic); Translations: [sulfa drugs] Drug allergy Unknown (qualifier value) [facility] (1 source) No Alert Propensity to adverse reactions to drug 09-14-20 22 [facility] (1 source) Penicillin Drug Allergy 10-01-19 23 [facility] (1 source) Propensity to adverse reactions to drug 10-01-19 23 [facility] (1 source) Iodine Drug Allergy 08-30-20 13 [facility] (1 source) Shellfish Drug allergy (disorder) 08-30-20 13 [facility] (4 sources) sulfADIAZINE Drug Allergy Unknown [facility] [employer] Other (20 sources) Substance with sulfonamide structure and antibacterial mechanism of action (substance) Drug allergy 08-31-19 93 Rash, Swelling [facility] [employer] Other (1 source) sulfa drug; Translations: [sulfa drug] Propensity to adverse reactions to drug (disorder) [facility] Repository (20 sources) Penicillin V Drug Allergy 01-23-20 23 [facility] (20 sources) Penicillins Drug Allergy 08-01-19 63 Hives [facility] (20 sources) Other Allergy to substance 06-30-20 23 Other [facility] (20 sources) Shellfish-Derived Products Drug Allergy 10-20-19 13 Swelling [facility] (12 sources) Shellfish; Translations: [shellfish derived] Allergy to substance 01-31-20 24 Unknown Reaction, Swelling of Lip/Tongue/Thr oat [facility] (1 source) Iodine Drug Allergy 10-22-19 25 [facility] (1 source) Penicillins Drug allergy (disorder) 10-22-19 25 [facility] (1 source) Shrimp product Drug allergy (disorder) 10-22-19 25 [facility] (1 source) Sulfonamides (Antibiotic) Drug allergy (disorder) 10-22-19 25 [facility] Repository Medications Current Medications Medication Drug Class(es) Dates Sig (Normalized) Sig (Original) Accu-Chek Prachi Plus - (9 sources) Accu-Chek Prachi Plus - USE TO TEST BLOOD SUGAR DAILY for 50 Active acetaminophen 500 mg oral ta blet (20 sources) Start: 07-05-2023 acetaminophen (Tylenol) 500 MG tablet Take by mouth every 6 (six) hours if needed 07/05/2023 Active Start: 03-15-2022 take 2 tablets by co ut every four hours as needed acetaminophen [...] tablet (20 sources) Opioid Agonist HYDROcodone-acet aminophen (Felicity) 7.5-325 MG tablet Active amiodarone hydrochloride 200 mg oral tablet (20 sources) Antiarrhythmic Start : 01-30 End: 08-07 take 1 tablet by mouth once daily in the morning Amiodarone 200 mg tablet Active 200 MG PO Every morning January 31, 2024 12:00am Aspirin (20 sources) Platelet Aggregation Inhibitor, Nonsteroidal Anti-inflammatory Drug Start : 10-01 208663 Medication aspirin aspirin 300 mg 10/01/2022 Active [...] Start: 11-10-2021 take 2 tablets by mo [facility] once daily at bedtime Clonazepam 1 mg tablet Active 2 MG PO Daily at bedtime November 10, 2021 1:00am Start: 11-10-2021 End: 10-03-2024 clonazePAM (KlonoPIN) 1 MG t ablet Indications: PLMD (periodic limb movement disorder) 1-2 tablet at bedtime 180 tablet 10/03/2024 Active Start: 09-24-2019 take 1 tablet by [facility] three times daily clonazepam 1 mg Tab [...] AREDS PO) Take by mouth. 0 Active Multivitamin-Hood Maker als-Lutein (A Thru Z High Potency) tablet (12 sources) Start: 11-10-2021 take 1 tablet by mouth twice daily Multivitamin-Hood Maker als-Lutein (A Thru Z High Potency) tablet Active 1 TAB PO Twice daily November 10, 2021 12:00am Start: 11-10-2021 take 1 tablet by wendy th twice daily Axrlmoymtogp-Fmjvnfbl-Ogutcy (A Thru Z H igh Potency) tablet Active 1 TAB PO Twice daily November 10, 2021 1:00am Start: 11-10-2021 take 1 tablet by wendy th once daily Tygfxhxrtzdt-Iczipgmw-Sspouy (A Thru Z H igh Potency) tablet Active 1 TAB PO Daily November 10, 2021 1:00am mupirocin 0.02 mg/mg topical ointment (20 sources) RNA Synthetase Inhibitor Antibacterial Start: 06-04-2024 mupirocin (Bactroban ) 2 % ointment 06/04/2024 Active Start: 06-04-2024 End: 10-17-2024 Mupirocin 2 % ointment Disco ntinued 1 APPLIC TOPICAL Twice daily June 04, 2024 12:00am October 17, 2024 3:59pm Hoblkklixbs-Lvumtzqb-Ylmnpsd ac 1-0.5-0.075 % solution (7 sources) Start: 12-28-2024 Rwbgzmztxuc-Dtzmlgsu-Iwcfght ac 1-0.5-0.075 % solution Indications: Age-related nuclear cataract of both eyes Administer 1 drop into affected eye(s) in the morning and 1 drop at noon and 1 drop in the evening and 1 drop before bedtime. 10 mL 1 12/28/2024 Active primidone 250 mg oral tablet (1 source) Anti-e pilept ic Agent Start: 08-21-2022 [id number] Medication omeprazole 20 mg capsule,delayed release omeprazole [...] Start: 11-28-2023 take 1 capsule by mo [facility] three times daily as needed benzonatate (Tessalon) [...] XL docusate sodium 50 mg / sennosides, penitentiary 8.6 mg oral tablet (1 source) Start: [...] 31, 2024 3:31pm 7.5mg on Sat. 5mg Z-P-X-W-Th-F Start: 01-02-2018 warfarin 5 MG tablet 1 [...] Coronary arteriosclerosis; Translations: [Atherosclerotic heart disease of [place] coronary artery without angina pectoris] Onset: 4 [...] sources) Long-term current use of anticoagulant; Translations: [manager long term care (current) use of anticoagulants] Episodic Other aftercare (2 sources) retirement (current) use of anticoagulants; Translations: [SKILLED NURSING CURRNT USE ANTICOAGULANTS] Onset: 3 Episodic Other aftercare (5 sources) Encounter for therapeutic drug level monitoring; Translations: [ENC THERAPEUTC DRUG LEVL MONITORING] Onset: 3 Episodic Other aftercare (1 source) manager long term care (current) 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; Translations: [SKILLED NURSING CURRENT USE OF ASPIRIN] Onset: 3 Episodic Other aftercare (1 source) Other group home (current) drug therapy; Translations: [OTH FACULTY DEAN CURRENT DRUG THERAPY] Onset: 3 Episodic Other [...] Reference Range Facility No Panel Informationon 01-03 [facility] Ophthalmic OCT panelon 12-28 [facility] Right Eye Images reviewed and comparison made to baseline, Images reviewed. To assess optic nerve function and for use in future follow-up. Reliability: good and adequate. Left Eye Images reviewed and comparison made to baseline, Images reviewed. To assess optic nerve function and for use in future follow-up. Reliability: good and adequate. Notes Good nerve fiber layer (NFL) thickness both eyes (OU). [facility] Radiology Study observation (narrative) [facility] Optical coherence tomography study reporton 12-28-2024 [facility] Radiology Study observation (narrative) [facility] US Eye+Orbit - bilateralon 0 12-28-2024 Diagnosis: Cataract both eyes (OU) Testing Indication: Performed for preop measurements in the determination of an intraocular lens (IOL) for both eyes (OU) Test Reliability: Good quality both eyes (OU) Interpretation: Good measurements for intraocular lens (IOL) calculation purposes. Calculation made for both eyes (OU). [facility] Radiology Study observation (narrative) [facility] GLUCOSE POCT GLUCOMETERSon 0 10-22-2024 COMMEMT1 Glu2: Cleaned Meter [facility] Glucose [Mass/Vol] 157 mg/dL [facility] Comment on above: Random Glucose Refer ence Range is dependent on time and content of last meal. Glucose of more than 200 mg/dL in a nonstressed, ambulatory subject supports the diagnosis of Diabetes Mellitus. [facility] COMMEMT1 Glu2: Cleaned Meter [facility] Glucose [Mass/Vol] 164 mg/dL [facility] Comment on above: Random Glucose Refer ence Range is dependent on time and content of last meal. Glucose of more than 200 mg/dL in a nonstressed, ambulatory subject supports the diagnosis of Diabetes Mellitus. [facility] Glucose Glucometer (dC) [M ass/Vol]Ordered By: Augustine Freitas on 10-22-2024 Glucose [Mass/Vol] Capillary blood gluc ose measurement by glucometer (mass/volume) [facility] Comment on above: Random Glucose Refer ence Range is dependent on time and content of last meal. Glucose of more than 200 mg/dL in a nonstressed, ambulatory subject supports the diagnosis of Diabetes Mellitus. Glucose Poct Glucometerson 0 10-22-2024 Commemt1 Glu2: Cleaned Meter Normal [facility] Comment on above: Result Comment: PERF ORMED BY: [facility] [address] [place] [address] PATHOLOGIST GARDENING SUPERVISOR GUERDA ESQUIVEL M.D. Performed By: #### G LULS #### Point of Care testing , Glucose [Mass/Vol] 157 mg/dL Normal [facility] Comment on above: Result Comment: [facility] Glucose Reference Range is dependent on time and content of last meal. Glucose of more than 200 mg/dL in a nonstressed, ambulatory subject supports the diagnosis of Diabetes Mellitus. Performed By: #### G LULS #### Point of Care testing , Commemt1 Glu2: Cleaned Meter Normal [facility] Comment on above: Result Comment: PERF ORMED BY: [place] [address] PATHOLOGIST GARDENING SUPERVISOR GUERDA ESQUIVEL M.D. Performed By: #### G LULS #### Point of Care testing , Glucose [Mass/Vol] 164 mg/dL Normal [facility] Comment on above: Result Comment: [facility] Glucose Reference Range is dependent on time and content of last meal. Glucose of more than 200 mg/dL in a nonstressed, ambulatory subject supports the diagnosis of Diabetes Mellitus. Performed By: #### G LULS #### Point of Care testing , No Panel InformationOrdered By: Augustine Freitas on 10-22-2024 Bedside Glucose Comment Glu2: cleaned meter [facility] Basic Metabolic Panelon 09-27 Anion gap [Moles/Vol] 13.1 mmol/L Normal 6.0-15.0 Th e [facility] Comment on above: Performed By: #### C BC, BMP #### [facility] [address] [place] [address] [place] Calcium [Mass/Vol] 9.0 mg/dL Normal 8.6-10.3 [facility] Comment on above: Result Comment: PERF ORMED BY: [place] [address] PATHOLOGIST GARDENING SUPERVISOR GUREDA ESQUIVEL M.D. Performed By: #### C BC, BMP #### [place] [id number] [place] Chloride [Moles/Vol] 103 mmol/L Normal 98-107 [facility] Comment on above: Performed By: #### C BC, BMP #### [address] CO2 [Moles/Vol] 30.3 mmol/L Normal 21.0-31.0 [facility] Comment on above: Performed By: #### C BC, BMP #### [address] Creatinine [Mass/Vol] 1.32 mg/dL High 0.70-1.30 [facility] Comment on above: Performed By: #### C BC, BMP #### [address] Estimated GFR 55.209 mL/Min Normal [facility] Comment on above: Performed By: #### C BC, BMP #### [address] Glucose [Mass/Vol] 175 mg/dL High 70-100 [facility] Comment on above: Result Comment: [facility] Glucose Reference Range is dependent on time and content of last meal. Glucose of more than 200 mg/dL in a nonstressed, ambulatory subject supports the diagnosis of Diabetes Mellitus. ADA recommended reference range Performed By: #### C BC, BMP #### [address] Potassium [Moles/Vol] 4.4 mmol/L Normal 3.5-5.1 [facility] Comment on above: Performed By: #### C BC, BMP #### [address] Sodium [Moles/Vol] 142 mmol/L Normal 136-145 [facility] Comment on above: Performed By: #### C BC, BMP #### [address] Urea nitrogen [Mass/Vol] 16 mg/dL Normal 7-25 [facility] Comment on above: Performed By: #### C BC, BMP #### [address] Basic metabolic 1998 panelon 10-17-2024 Anion gap [Moles/Vol] 13.1 mmol/L 6.0 - 15.0 meq/L [facility] Calcium [Mass/Vol] 9 mg/dL 8.6 - 10. 3 mg/dL [facility] Chloride [Moles/Vol] 103 mmol/L 98 - 10 7 mmol/L [facility] CO2 [Moles/Vol] 30.3 mmol/L 21.0 - 31.0 mmol/L [facility] Creatinine (U) [Mass/Vol] 1.32 mg/dL High 0.70 - 1.30 mg/dL [facility] GFR/1.73 sq M.predicted MDRD (S/P/Bld) [Vol rate/Area] 55.209 mL/min/{1.73_m2} mL/Min [facility] Glucose [Mass/Vol] 175 mg/dL High 70 - 100 mg/dL [facility] Comment on above: Random Glucose Refer ence Range is dependent on time and content of last meal. Glucose of more than 200 mg/dL in a nonstressed, ambulatory subject supports the diagnosis of Diabetes Mellitus. ADA recommended reference range Interpretation and review of laboratory results Abnormal [facility] Potassium [Moles/Vol] 4.4 mmol/L 3.5 - 5.1 mmol/L [facility] Sodium [Moles/Vol] 142 mmol/L 136 - 145 mmol/L [facility] Urea nitrogen [Mass/Vol] 16 mg/dL 7 - 25 mg/dL [facility] Basophils Auto (Bld) [#/Vol] Ordered By: Augustine Freitas on 10-17-2024 Basophils (Bld) [#/Vol] Automated basophil count 0.0-0.2 [facility] Basophils/100 WBC Auto (Bld) Ordered By: Augustine Freitas on 10-17-2024 Basophils/100 WBC (Bld) Automated basophil % . [facility] CBC W Auto Differential pane l (Bld)on 10-17-2024 Basophils (Bld) [#/Vol] 0 10*3/uL 0.0 - 0.2 10*3/uL [facility] Basophils/100 WBC Manual cnt (Syn fld) 0.5 % . [facility] Eosinophils (Bld) [#/Vol] 0.1 10*3/uL 0.0 - 0.45 10*3/uL [facility] Eosinophils/100 WBC Manual cnt (Syn fld) 2 % . [facility] Erythrocyte distribution width (RBC) [Ratio] 14.2 % 12.0 - 14.8 % [facility] Hematocrit (Bld) [Volume fraction] 43.9 % 38.8 - 50.0 % [facility] Hemoglobin (Bld) [Mass/Vol] 14.8 g/dL 13.0 - 17.0 g/dL [facility] Lymphocytes (Bld) [#/Vol] 1.5 10*3/uL 1.00 - 4.8 10*3/uL [facility] Lymphocytes/100 WBC Manual cnt (Syn fld) 28.9 % . [facility] MCH (RBC) [Entitic mass] 31.3 pg 27.5 - 35.2 pg [facility] MCHC (RBC) [Mass/Vol] 33.6 g/dL 32.5 - 35.6 g/dL [facility] MCV (RBC) [Entitic vol] 93.1 fL 83.5 - 101 fL [facility] Monocytes (Bld) [#/Vol] 0.5 10*3/uL 0.0 - 0.8 10*3/uL [facility] Monocytes+Macrophages/ 100 WBC Manual cnt (Syn fld) 9.3 % . [facility] Neutrophils (Bld) [#/Vol] 3.2 10*3/uL 1.8 - 7.7 10*3/uL [facility] Neutrophils/100 WBC Manual cnt (Syn fld) 59.3 % . [facility] NRBC 0.1 /100{WBC} 0 - 0.5 /100{WBC} [facility] Platelet mean volume (Bld) [Entitic vol] 9.5 fL 6.6 - 10.1 fL [facility] Platelets (Bld) [#/Vol] 160 10*3/uL 150 - 450 10*3/uL [facility] RBC LM.HPF (Urine sed) [#/Area] 4.72 10*6/uL 3.90 - 5.60 10*6/uL [facility] WBC (Bld) [#/Vol] 5.3 10*3/uL 4.1 - 10.5 10*3/uL [facility] WBC LM.HPF (Urine sed) [#/Area] 5.3 10*3/uL 4.1 - 10.5 10*3/uL [facility] Calcium [Mass/volume] in Ser um or PlasmaOrdered By: Augustine Freitas on 10-17-2024 Calcium [Mass/Vol] Calcium [Mass/volume ] in Serum or Plasma 8.6-10.3 [facility] Carbon dioxide, total [Moles /volume] in Serum or PlasmaOrdered By: Augustine Freitas on 10-17-2024 CO2 [Moles/Vol] Carbon dioxide, tota l [Moles/volume] in Serum or Plasma 21.0-31.0 [facility] Chloride [Moles/volume] in S marnie or PlasmaOrdered By: Augustine Freitas on 10-17-2024 Chloride [Moles/Vol] Chloride [Moles/vol ume] in Serum or Plasma 98-107 [facility] Complete Blood Count Auto Di ffon 10-17-2024 Basophils (Bld) [#/Vol] 0.0 10*3/uL Normal 0.0-0.2 [facility] Comment on above: Result Comment: PERF ORMED BY: [place] [address] PATHOLOGIST GARDENING SUPERVISOR GUERDA ESQUIVEL M.D. Performed By: #### C BC, BMP #### [place] [address] [place] Basophils/100 WBC (Bld) 0.5 % Normal . [facility] Comment on above: Performed By: #### C BC, BMP #### [place] [address] [place] Eosinophils (Bld) [#/Vol] 0.1 10*3/uL Normal 0.0-0.45 [facility] Comment on above: Performed By: #### C BC, BMP #### [place] [address] [place] Eosinophils/100 WBC (Bld) 2.0 % Normal . [facility] Comment on above: Performed By: #### C BC, BMP #### [address] Erythrocyte distribution width (RBC) [Ratio] 14.2 % Normal 12.0-14.8 [facility] Comment on above: Performed By: #### C BC, BMP #### [address] Hematocrit (Bld) [Volume fraction] 43.9 % Normal 38.8-50.0 [facility] Comment on above: Performed By: #### C BC, BMP #### [address] Hemoglobin (Bld) [Mass/Vol] 14.8 g/dL Normal 13.0-17.0 [facility] Comment on above: Performed By: #### C BC, BMP #### [address] Lymphocytes (Bld) [#/Vol] 1.5 10*3/uL Normal 1.00-4.8 [facility] Comment on above: Performed By: #### C BC, BMP #### [address] Lymphocytes/100 WBC (Bld) 28.9 % Normal . [facility] Comment on above: Performed By: #### C BC, BMP #### [address] MCH (RBC) [Entitic mass] 31.3 pg Normal 27.5-35.2 [facility] Comment on above: Performed By: #### C BC, BMP #### [address] MCV (RBC) [Entitic vol] 93.1 fL Normal 83.5-101 [facility] Comment on above: Performed By: #### C BC, BMP #### [address] Mean Corpuscular HGB Conc 33.6 g/dL Normal 32.5-35.6 [facility] Comment on above: Performed By: #### C BC, BMP #### [address] [place] [address] [place] Monocytes (Bld) [#/Vol] 0.5 10*3/uL Normal 0.0-0.8 [facility] Comment on above: Performed By: #### C BC, BMP #### [address] Monocytes/100 WBC (Bld) 9.3 % Normal . [facility] Comment on above: Performed By: #### C BC, BMP #### [address] Neutrophils (Bld) [#/Vol] 3.2 10*3/uL Normal 1.8-7.7 [facility] Comment on above: Performed By: #### C BC, BMP #### [address] Neutrophils/100 WBC (Bld) 59.3 % Normal . [facility] Comment on above: Performed By: #### C BC, BMP #### [address] NRBC% 0.1 /100{WBC} Normal 0-0.5 [facility] Comment on above: Performed By: #### C BC, BMP #### [address] Platelet mean volume (Bld) [Entitic vol] 9.5 fL Normal 6.6-10.1 [facility] Comment on above: Performed By: #### C BC, BMP #### [address] Platelets (Bld) [#/Vol] 160 10*3/uL Normal 150-450 [facility] Comment on above: Performed By: #### C BC, BMP #### [address] RBC (Bld) [#/Vol] 4.72 10*6/uL Normal 3.90-5.60 [facility] Comment on above: Performed By: #### C BC, BMP #### [address] WBC (Bld) [#/Vol] 5.3 10*3/uL Normal 4.1-10.5 [facility] Comment on above: Performed By: #### C BC, BMP #### [address] Creatinine [Mass/volume] in Serum or PlasmaOrdered By: Augustine Freitas on 10-17-2024 Creatinine [Mass/Vol] Creatinine [Mass/v olume] in Serum or Plasma High 0.70-1.30 [facility] ECG 12 lead ECGon 10-17-2024 ECG 12 lead ECG [facility] [place] [address] [place] [address] Electrocardiograph Report Signed Patient: Tito Goncalves MR#: [id number] 70 : 1945 Acct:[id number] Age/Sex: 79 / M ADM Date: 10/17/24 Loc: Room: Type: [facility] Attending Dr: Augustine Freitas DO Ordering [...] in Lateral leads Confirmed by Oliver Rubio ([id number]) on 10/17/2024 4:52:19 PM Referred By: Electronically Signed By: Oliver Rubio Transcribed By: MUS Signed By Oliver Rubio MD 10/17/24 4051 Normal [facility] Eosinophils Auto (Bld) [#/Vo l]Ordered By: Augustine Freitas on 10-17-2024 Eosinophils (Bld) [#/Vol] Automated eosinophil count 0.0-0.45 [facility] Eosinophils/100 WBC Auto (Bl d)Ordered By: Augustine Freitas on 10-17-2024 Eosinophils/100 WBC (Bld) Automated eosinophil % . [facility] Erythrocyte distribution wid th Auto (RBC) [Ratio]Ordered By: Augustine Freitas on 10-17-2024 Erythrocyte distribution width (RBC) [Ratio] Erythrocyte distribution width [Ratio] by Automated count 12.0-14.8 [facility] Glucose [Mass/volume] in Ser um or PlasmaOrdered By: Augustine Freitas on 10-17-2024 Glucose [Mass/Vol] Glucose [Mass/volume ] in Serum or Plasma High 70-100 [facility] Comment on above: ADA recommended refe rence rangeRandom Glucose Reference Range is dependent on time and content of last meal. Glucose of more than 200 mg/dL in a nonstressed, ambulatory subject supports the diagnosis of Diabetes Mellitus. Hematocrit Auto (Bld) [Volum e fraction]Ordered By: Augustine Freitas on 10-17-2024 Hematocrit (Bld) [Volume fraction] Hematocrit [Volume Fraction] of Blood by Automated count 38.8-50.0 [facility] Hemoglobin [Mass/volume] in BloodOrdered By: Augustine Freitas on 10-17-2024 Hemoglobin (Bld) [Mass/Vol] Hemoglobin [Mass/volume] in Blood 13.0-17.0 [facility] Leukocytes [#/volume] correc iván for nucleated erythrocytes in Blood by Automated counOrdered By: Augustine Freitas on 10-17-2024 WBC corrected for nucl RBC Auto (Bld) [#/Vol] Leukocytes [#/volume] corrected for nucleated erythrocytes in Blood by Automated coun 4.1-10.5 [facility] Lymphocytes Auto (Bld) [#/Vo l]Ordered By: Augustine Freitas on 10-17-2024 Lymphocytes (Bld) [#/Vol] Lymphocytes [#/volume] in Blood by Automated count 1.00-4.8 [facility] Lymphocytes/100 WBC Auto (Bl d)Ordered By: Augustine Freitas on 10-17-2024 Lymphocytes/100 WBC (Bld) Lymphocytes/100 leukocytes in Blood by Automated count . [facility] MCH Auto (RBC) [Entitic mass ]Ordered By: Augustine Freitas on 10-17-2024 MCH (RBC) [Entitic mass] MCH [Entitic mass] by Automated count 27.5-35.2 [facility] MCHC Auto (RBC) [Mass/Vol]Or dered By: Augustine Freitas on 10-17-2024 MCHC (RBC) [Mass/Vol] MCHC [Mass/volume] by Automated count 32.5-35.6 [facility] MCV Auto (RBC) [Entitic vol] Ordered By: Augustine Freitas on 10-17-2024 MCV (RBC) [Entitic vol] MCV [Entitic volume] by Automated count 83.5-101 [facility] Monocytes Auto (Bld) [#/Vol] Ordered By: Augustine Freitas on 10-17-2024 Monocytes (Bld) [#/Vol] Automated blood monocyte count 0.0-0.8 [facility] Monocytes/100 WBC Auto (Bld) Ordered By: Augustine Freitas on 10-17-2024 Monocytes/100 WBC (Bld) Automated monocyte % . [facility] Neutrophils Auto (Bld) [#/Vo l]Ordered By: Augustine Freitas on 10-17-2024 Neutrophils (Bld) [#/Vol] Neutrophils [#/volume] in Blood by Automated count 1.8-7.7 [facility] Neutrophils/100 WBC Auto (Bl d)Ordered By: Augustine Freitas on 10-17-2024 Neutrophils/100 WBC (Bld) Automated neutrophil % . [facility] No Panel InformationOrdered By: Augustine Freitas on 10-17-2024 Estimated GFR (CKD-EPI) 55.209 mL/Min [facility] Creatinine Clearance (Chem N/A [facility] Nucleated erythrocytes [Pres ence] in Blood by Automated countOrdered By: Augustine Freitas on 10-17-2024 Nucleated RBC Auto Ql (Bld) Nucleated erythrocytes [Presence] in Blood by Automated count 0-0.5 [facility] Platelet mean volume Auto (B ld) [Entitic vol]Ordered By: Augustine Freitas on 10-17-2024 Platelet mean volume (Bld) [Entitic vol] Platelet mean volume [Entitic volume] in Blood by Automated count 6.6-10.1 [facility] Platelets Auto (Bld) [#/Vol] Ordered By: Augustine Freitas on 10-17-2024 Platelets (Bld) [#/Vol] Platelets [#/volume] in Blood by Automated count 150-450 [facility] Potassium [Moles/volume] in Serum or PlasmaOrdered By: Augustine Freitas on 10-17-2024 Potassium [Moles/Vol] Potassium [Moles/v olume] in Serum or Plasma 3.5-5.1 [facility] RBC Auto (Bld) [#/Vol]Ordere d By: Augustine Freitas on 10-17-2024 RBC (Bld) [#/Vol] Erythrocytes [#/volu me] in Blood by Automated count 3.90-5.60 [facility] Serum or plasma anion gap de terminationOrdered By: Augustine Freitas on 10-17-2024 Anion gap [Moles/Vol] Serum or plasma an ion gap determination 6.0-15.0 [facility] Sodium [Moles/volume] in Ser um or PlasmaOrdered By: Augustine Freitas on 10-17-2024 Sodium [Moles/Vol] Sodium [Moles/volume ] in Serum or Plasma 136-145 [facility] Urea nitrogen [Mass/volume] in Serum or PlasmaOrdered By: Augustine Freitas on 10-17-2024 Urea nitrogen [Mass/Vol] Urea nitrogen [Mass/volume] in Serum or Plasma 7-25 [facility] WBC Auto (Bld) [#/Vol]Ordere d By: Augustine Freitas on 10-17-2024 WBC (Bld) [#/Vol] Leukocytes [#/volume ] in Blood by Automated count 4.1-10.5 [facility] No Panel Informationon 10-16 Consent obtained: andre ferrer (The rationale for Mohs as well as the risks, benefits, and alternatives. The risks of infection, scarring, bleeding, prolonged wound healing, incomplete removal, allergy to anesthesia or meds, nerve injury, and recurrence were addressed.) [facility] Protocol: Procedure explained and questions answered to [...] sodium bicarbonate Procedure Details: Biopsy accession number: [id number] Biopsy lab: [place] Date of biopsy: 10/04/2024 Frozen section biopsy [...] Number of bl (more content not included)... [id number] [facility] No Panel Informationon 10-04 Type of biopsy: [...] taken Amount of lidocaine used: 0.4 cc [facility] No Panel InformationOrdered By: Karen Mckinnon on 10-04-2024 [facility] Optical coherence tomography study reporton 09-07-2024 [facility] Radiology Study observation (narrative) [facility] Basophils Auto (Bld) [#/Vol] on 08-14-2024 Basophils (Bld) [#/Vol] Automated basophil count 0.0-0.1 [facility] Basophils/100 WBC Auto (Bld) on 08-14-2024 Basophils/100 WBC (Bld) Automated basophil % 0.2-2.0 [facility] Eosinophils/100 WBC Auto (Bl d)on 08-14-2024 Eosinophils/100 WBC (Bld) Automated eosinophil % 0.9-7.0 [facility] Erythrocyte distribution wid th Auto (RBC) [Ratio]on 08-14-2024 Erythrocyte distribution width (RBC) [Ratio] Erythrocyte distribution width [Ratio] by Automated count High 11.0-15.0 [facility] Estimated glomerular filtrat ion rate (GFR) non- Americanon 08-14-2024 GFR/1.73 sq M.predicted among non-blacks MDRD (S/P/Bld) [Vol rate/Area] Estimated glomerular filtration rate (GFR) non- Low >=60 mL/min/1.7 3m 2 [facility] Globulin Calc (S) [Mass/Vol] on 08-14-2024 Globulin (S) [Mass/Vol] Serum globulin measurement by calculation (mass/volume) [facility] Glucose mean value [Mass/vol ume] in Blood Estimated from glycated hemoglobinon 08-14-2024 Average glucose Estimated from glycated hemoglobin (Bld) [Mass/Vol] Glucose mean value [Mass/volume] in Blood Estimated from glycated hemoglobin [facility] Hematocrit Auto (Bld) [Volum e fraction]on 08-14-2024 Hematocrit (Bld) [Volume fraction] Hematocrit [Volume Fraction] of Blood by Automated count 42.0-54.0 [facility] Hemoglobin [Mass/volume] in Bloodon 08-14-2024 Hemoglobin (Bld) [Mass/Vol] Hemoglobin [Mass/volume] in Blood 14.0-18.0 [facility] Laboratory - Chemistry and C hemistry - challengeon 08-14-2024 Albumin [Mass/Vol] 3.6 g/dL 3.4-5.0 [facility] ALP [Catalytic activity/Vol] 78 U/L 46-116 [facility] ALT [Catalytic activity/Vol] 25 U/L 16-63 [facility] AST [Catalytic activity/Vol] 16 U/L 15-37 [facility] Bilirubin [Mass/Vol] 0.7 mg/dL 0.2-1.0 [facility] Calcium [Mass/Vol] 8.8 mg/dL 8.5-10.1 [facility] Chloride [Moles/Vol] 104 mmol/L 98-107 [facility] CO2 [Moles/Vol] 28.7 mmol/L 21.0-32.0 [facility] Creatinine [Mass/Vol] 1.66 mg/dL High 0.70-1.30 [facility] GFR/1.73 sq M.predicted MDRD (S/P/Bld) [Vol rate/Area] 49 mL/min/{1.73_m2} Low >=60 mL/min/1.7 3m 2 [facility] Glucose [Mass/Vol] 143 mg/dL High 74-106 [facility] Potassium [Moles/Vol] 4.5 mmol/L 3.5-5.1 [facility] Protein [Mass/Vol] 6.7 g/dL 6.4-8.2 [facility] Sodium [Moles/Vol] 142 mmol/L 136-145 [facility] Urea nitrogen [Mass/Vol] 24.0 mg/dL High 7.0-18.0 [facility] Urea nitrogen/Creatinine [Mass ratio] 14.5 mg/mg [facility] Laboratory - Hematology and Cell countson 08-14-2024 HbA1c (Bld) [Mass fraction] 7.2 % High 4.5-6.2 [facility] Comment on above: ADA RECOMMENDED LIMI T 4.0 - 6.0ADA THERAPEUTIC TARGET < 7.0ACTION SUGGESTED> 7.0 Immature granulocytes/100 WBC (Bld) 0.0 % 0.0-0.5 [facility] Leukocytes [#/volume] correc iván for nucleated erythrocytes in Blood by Automated counon 08-14-2024 WBC corrected for nucl RBC Auto (Bld) [#/Vol] Leukocytes [#/volume] corrected for nucleated erythrocytes in Blood by Automated coun 4.0-11.0 [facility] Lymphocytes Auto (Bld) [#/Vo l]on 08-14-2024 Lymphocytes (Bld) [#/Vol] Lymphocytes [#/volume] in Blood by Automated count 1.2-3.8 [facility] Lymphocytes/100 WBC Auto (Bl d)on 08-14-2024 Lymphocytes/100 WBC (Bld) Lymphocytes/100 leukocytes in Blood by Automated count 20.5-60.0 [facility] MCH Auto (RBC) [Entitic mass ]on 08-14-2024 MCH (RBC) [Entitic mass] MCH [Entitic mass] by Automated count 25.9-34.0 [facility] MCHC Auto (RBC) [Mass/Vol]on 08-14-2024 MCHC (RBC) [Mass/Vol] MCHC [Mass/volume] by Automated count 29.9-35.2 [facility] MCV Auto (RBC) [Entitic vol] on 08-14-2024 MCV (RBC) [Entitic vol] MCV [Entitic volume] by Automated count 80.0-94.0 [facility] Microalbumin [Mass/volume] i n Urineon 08-14-2024 Albumin DL <= 20 mg/L (U) [Mass/Vol] Microalbumin [Mass/volume] in Urine <=30.0 [facility] Monocytes Auto (Bld) [#/Vol] on 08-14-2024 Monocytes (Bld) [#/Vol] Automated blood monocyte count 0.3-0.8 [facility] Monocytes/100 WBC Auto (Bld) on 08-14-2024 Monocytes/100 WBC (Bld) Automated monocyte % 1.7-12.0 [facility] Neutrophils Auto (Bld) [#/Vo l]on 08-14-2024 Neutrophils (Bld) [#/Vol] Neutrophils [#/volume] in Blood by Automated count 1.4-6.5 [facility] Neutrophils/100 WBC Auto (Bl d)on 08-14-2024 Neutrophils/100 WBC (Bld) Automated neutrophil % 43.0-75.0 [facility] No Panel Informationon 08-14 Eosinophils # (Auto) 0.1 10 3/uL 0.0-0.7 [facility] Immature Granulocyte # (Auto) 0.00 10 3/uL 0.00-0.03 [facility] Prostate Specific Antigen Screen 1.77 ng/mL <=4.00 [facility] Platelet mean volume Auto (B ld) [Entitic vol]on 08-14-2024 Platelet mean volume (Bld) [Entitic vol] Platelet mean volume [Entitic volume] in Blood by Automated count 9.5-13.5 [facility] Platelets Auto (Bld) [#/Vol] on 08-14-2024 Platelets (Bld) [#/Vol] Platelets [#/volume] in Blood by Automated count 150-450 [facility] RBC Auto (Bld) [#/Vol]on RBC (Bld) [#/Vol] Erythrocytes [#/volu me] in Blood by Automated count Low 4.70-6.10 [facility] Serum or plasma albumin/glob ulin mass ratioon 08-14-2024 Albumin/Globulin [Mass ratio] Serum or plasma albumin/globulin mass ratio [facility] Serum or plasma anion gap de terminationon 08-14-2024 Anion gap [Moles/Vol] Serum or plasma an ion gap determination [facility] Office Visiton 07-11-2024 Follow-up visit [id number] Amina Goncalves 1945 M Date Provider Department Center 07/11/2024 [id number] Family History Problem Relation Age of Onset Cancer Mother Heart attack Other Family Status - Relation Status Age at Mother Other Level of Service:[address] [place] OFFICE/OUTPATIENT ESTABLISHED LOW MDM 20 MIN Normal [facility] Basophils Auto (Bld) [#/Vol] on 06-27-2024 Basophils (Bld) [#/Vol] 0.0 10 3/uL 0.0-0.1 [facility] Basophils/100 WBC Auto (Bld) on 06-27-2024 Basophils/100 WBC (Bld) 0.4 % 0.2-2.0 [facility] Eosinophils/100 WBC Auto (Bl d)on 06-27-2024 Eosinophils/100 WBC (Bld) 2.0 % 0.9-7.0 [facility] Erythrocyte distribution wid th Auto (RBC) [Ratio]on 06-27-2024 Erythrocyte distribution width (RBC) [Ratio] 16.6 % High 11.0-15.0 [facility] Hematocrit Auto (Bld) [Volum e fraction]on 06-27-2024 Hematocrit (Bld) [Volume fraction] 38.5 % Low 42.0-54.0 [facility] Hemoglobin [Mass/volume] in Bloodon 06-27-2024 Hemoglobin (Bld) [Mass/Vol] 12.5 g/dL Low 14.0-18.0 [facility] Iron binding capacity [Mass/ volume] in Serum or Plasmaon 06-27-2024 Iron binding capacity [Mass/Vol] 314.0 ug/dL 250.0-450. 0 [facility] Iron saturation [Mass Fracti on] in Serum or Plasmaon 06-27-2024 Iron saturation [Mass fraction] 21.3 % [facility] Laboratory - Chemistry and C hemistry - challengeon 06-27-2024 Cobalamin (Vitamin B12) [Mass/Vol] 640 pg/mL 232-1245 [facility] Comment on above: Performed at: [address] [id number] Director: rEasmo Mack PhD, Phone: [phone] Ferritin [Mass/Vol] 25.0 ng/mL Low 26.0-388.0 [facility] Iron [Mass/Vol] 67.0 ug/dL 65.0-175.0 [facility] - Hematology and Cell countson 06-27-2024 Immature granulocytes/100 WBC (Bld) 0.4 % 0.0-0.5 [facility] Leukocytes [#/volume] correc iván for nucleated erythrocytes in Blood by Automated counon 06-27-2024 WBC corrected for nucl RBC Auto (Bld) [#/Vol] 5.0 10 3/uL 4.0-11.0 [facility] Lymphocytes Auto (Bld) [#/Vo l]on 06-27-2024 Lymphocytes (Bld) [#/Vol] 1.4 10 3/uL 1.2-3.8 [facility] Lymphocytes/100 WBC Auto (Bl d)on 06-27-2024 Lymphocytes/100 WBC (Bld) 27.8 % 20.5-60.0 [facility] MCH Auto (RBC) [Entitic mass ]on 06-27-2024 MCH (RBC) [Entitic mass] 28.8 pg 25.9-34.0 [facility] MCHC Auto (RBC) [Mass/Vol]on 06-27-2024 MCHC (RBC) [Mass/Vol] 32.5 g/dL 29.9-35.2 [facility] MCV Auto (RBC) [Entitic vol] on 06-27-2024 MCV (RBC) [Entitic vol] 88.7 fL 80.0-94.0 [facility] Monocytes Auto (Bld) [#/Vol] on 06-27-2024 Monocytes (Bld) [#/Vol] 0.4 10 3/uL 0.3-0.8 [facility] Monocytes/100 WBC Auto (Bld) on 06-27-2024 Monocytes/100 WBC (Bld) 8.3 % 1.7-12.0 [facility] Neutrophils Auto (Bld) [#/Vo l]on 06-27-2024 Neutrophils (Bld) [#/Vol] 3.1 10 3/uL 1.4-6.5 [facility] Neutrophils/100 WBC Auto (Bl d)on 06-27-2024 Neutrophils/100 WBC (Bld) 61.1 % 43.0-75.0 [facility] No Panel Informationon 06-27 Eosinophils # (Auto) 0.1 10 3/uL 0.0-0.7 [facility] Folate 22.10 ng/mL 8.60-58.90 [facility] Immature Granulocyte # (Auto) 0.02 10 3/uL 0.00-0.03 [facility] Platelet mean volume Auto (B ld) [Entitic vol]on 06-27-2024 Platelet mean volume (Bld) [Entitic vol] 11.2 fL 9.5-13.5 [facility] Platelets Auto (Bld) [#/Vol] on 06-27-2024 Platelets (Bld) [#/Vol] 162 10 3/uL 150-450 [facility] RBC Auto (Bld) [#/Vol]on RBC (Bld) [#/Vol] 4.34 10 6/uL Low 4.70-6.10 [facility] No Panel Informationon 06-19 [facility] Optical coherence tomography study reporton 06-08-2024 [facility] Radiology Study observation (narrative) [facility] Basophils Auto (Bld) [#/Vol] on 04-18-2024 Basophils (Bld) [#/Vol] 0.0 10 3/uL 0.0-0.1 [facility] Basophils/100 WBC Auto (Bld) on 04-18-2024 Basophils/100 WBC (Bld) 0.5 % 0.2-2.0 [facility] Eosinophils/100 WBC Auto (Bl d)on 04-18-2024 Eosinophils/100 WBC (Bld) 4.3 % 0.9-7.0 [facility] Erythrocyte distribution wid th Auto (RBC) [Ratio]on 04-18-2024 Erythrocyte distribution width (RBC) [Ratio] 14.0 % 11.0-15.0 [facility] Hematocrit Auto (Bld) [Volum e fraction]on 04-18-2024 Hematocrit (Bld) [Volume fraction] 36.8 % Low 42.0-54.0 [facility] Hemoglobin [Mass/volume] in Bloodon 04-18-2024 Hemoglobin (Bld) [Mass/Vol] 11.6 g/dL Low 14.0-18.0 [facility] Iron binding capacity [Mass/ volume] in Serum or Plasmaon 04-18-2024 Iron binding capacity [Mass/Vol] 339.0 ug/dL 250.0-450. 0 [facility] Iron saturation [Mass Fracti on] in Serum or Plasmaon 04-18-2024 Iron saturation [Mass fraction] 11.8 % [facility] Laboratory - Chemistry and C hemistry - challengeon 04-18-2024 Cobalamin (Vitamin B12) [Mass/Vol] 594.0 pg/mL 193.0-986. 0 [facility] Ferritin [Mass/Vol] 20.0 ng/mL Low 26.0-388.0 [facility] Iron [Mass/Vol] 40.0 ug/dL Low 65.0-175.0 [facility] - Hematology and Cell countson 04-18-2024 Immature granulocytes/100 WBC (Bld) 0.0 % 0.0-0.5 [facility] Leukocytes [#/volume] correc iván for nucleated erythrocytes in Blood by Automated counon 04-18-2024 WBC corrected for nucl RBC Auto (Bld) [#/Vol] 4.4 10 3/uL 4.0-11.0 [facility] Lymphocytes Auto (Bld) [#/Vo l]on 04-18-2024 Lymphocytes (Bld) [#/Vol] 1.5 10 3/uL 1.2-3.8 [facility] Lymphocytes/100 WBC Auto (Bl d)on 04-18-2024 Lymphocytes/100 WBC (Bld) 34.1 % 20.5-60.0 [facility] MCH Auto (RBC) [Entitic mass ]on 04-18-2024 MCH (RBC) [Entitic mass] 27.5 pg 25.9-34.0 [facility] MCHC Auto (RBC) [Mass/Vol]on 04-18-2024 MCHC (RBC) [Mass/Vol] 31.5 g/dL 29.9-35.2 [facility] MCV Auto (RBC) [Entitic vol] on 04-18-2024 MCV (RBC) [Entitic vol] 87.2 fL 80.0-94.0 [facility] Monocytes Auto (Bld) [#/Vol] on 04-18-2024 Monocytes (Bld) [#/Vol] 0.4 10 3/uL 0.3-0.8 [facility] Monocytes/100 WBC Auto (Bld) on 04-18-2024 Monocytes/100 WBC (Bld) 9.4 % 1.7-12.0 [facility] Neutrophils Auto (Bld) [#/Vo l]on 04-18-2024 Neutrophils (Bld) [#/Vol] 2.3 10 3/uL 1.4-6.5 [facility] Neutrophils/100 WBC Auto (Bl d)on 04-18-2024 Neutrophils/100 WBC (Bld) 51.7 % 43.0-75.0 [facility] No Panel Informationon 04-18 Eosinophils # (Auto) 0.2 10 3/uL 0.0-0.7 [facility] Immature Granulocyte # (Auto) 0.00 10 3/uL 0.00-0.03 [facility] Platelet mean volume Auto (B ld) [Entitic vol]on 04-18-2024 Platelet mean volume (Bld) [Entitic vol] 11.1 fL 9.5-13.5 [facility] Platelets Auto (Bld) [#/Vol] on 04-18-2024 Platelets (Bld) [#/Vol] 185 10 3/uL 150-450 [facility] RBC Auto (Bld) [#/Vol]on RBC (Bld) [#/Vol] 4.22 10 6/uL Low 4.70-6.10 [facility] Office Visiton 04-12-2024 Follow-up visit [id number] Amina Goncalves 1945 M Date Provider Department Center 04/12/2024 [facility] Family History Problem Relation Age of Onset Cancer Mother Heart attack Other Family Status - Relation Status Age at Mother Other Level of Service:05758 [place] OFFICE/OUTPATIENT ESTABLISHED MOD MDM 30 MIN Normal [facility] Basophils Auto (Bld) [#/Vol] on 04-02-2024 Basophils (Bld) [#/Vol] 0.0 10 3/uL 0.0-0.1 [facility] Basophils/100 WBC Auto (Bld) on 04-02-2024 Basophils/100 WBC (Bld) 0.6 % 0.2-2.0 [facility] Eosinophils/100 WBC Auto (Bl d)on 04-02-2024 Eosinophils/100 WBC (Bld) 3.3 % 0.9-7.0 [facility] Erythrocyte distribution wid th Auto (RBC) [Ratio]on 04-02-2024 Erythrocyte distribution width (RBC) [Ratio] 13.9 % 11.0-15.0 [facility] Estimated glomerular filtrat ion rate (GFR) non- Americanon 04-02-2024 GFR/1.73 sq M.predicted among non-blacks MDRD (S/P/Bld) [Vol rate/Area] 49 mL/min/{1.73_m2} Low >=60 [facility] Globulin Calc (S) [Mass/Vol] on 04-02-2024 Globulin (S) [Mass/Vol] 3.0 g/dL [facility] Hematocrit Auto (Bld) [Volum e fraction]on 04-02-2024 Hematocrit (Bld) [Volume fraction] 32.6 % Low 42.0-54.0 [facility] Hemoglobin [Mass/volume] in Bloodon 04-02-2024 Hemoglobin (Bld) [Mass/Vol] 10.3 g/dL Low 14.0-18.0 [facility] Laboratory - Chemistry and C hemistry - challengeon 04-02-2024 Albumin [Mass/Vol] 2.8 g/dL Low 3.4-5.0 [facility] ALP [Catalytic activity/Vol] 76 U/L 46-116 [facility] ALT [Catalytic activity/Vol] 14 U/L Low 16-63 [facility] AST [Catalytic activity/Vol] 11 U/L Low 15-37 [facility] Bilirubin [Mass/Vol] 0.4 mg/dL 0.2-1.0 [facility] Calcium [Mass/Vol] 8.4 mg/dL Low 8.5-10.1 [facility] Chloride [Moles/Vol] 107 mmol/L 98-107 [facility] CO2 [Moles/Vol] 28.1 mmol/L 21.0-32.0 [facility] Creatinine [Mass/Vol] 1.40 mg/dL High 0.70-1.30 [facility] GFR/1.73 sq M.predicted MDRD (S/P/Bld) [Vol rate/Area] 59 mL/min/{1.73_m2} Low >=60 [facility] Glucose [Mass/Vol] 141 mg/dL High 74-106 [facility] Potassium [Moles/Vol] 4.3 mmol/L 3.5-5.1 [facility] Protein [Mass/Vol] 5.8 g/dL Low 6.4-8.2 [facility] Sodium [Moles/Vol] 142 mmol/L 136-145 [facility] Urea nitrogen [Mass/Vol] 16.0 mg/dL 7.0-18.0 [facility] Urea nitrogen/Creatinine [Mass ratio] 11.4 mg/mg [facility] Laboratory - Hematology and Cell countson 04-02-2024 Immature granulocytes/100 WBC (Bld) 0.2 % 0.0-0.5 [facility] Leukocytes [#/volume] correc iván for nucleated erythrocytes in Blood by Automated counon 04-02-2024 WBC corrected for nucl RBC Auto (Bld) [#/Vol] 5.2 10 3/uL 4.0-11.0 [facility] Lymphocytes Auto (Bld) [#/Vo l]on 04-02-2024 Lymphocytes (Bld) [#/Vol] 1.7 10 3/uL 1.2-3.8 [facility] Lymphocytes/100 WBC Auto (Bl d)on 04-02-2024 Lymphocytes/100 WBC (Bld) 32.6 % 20.5-60.0 [facility] MCH Auto (RBC) [Entitic mass ]on 04-02-2024 MCH (RBC) [Entitic mass] 27.8 pg 25.9-34.0 [facility] MCHC Auto (RBC) [Mass/Vol]on 04-02-2024 MCHC (RBC) [Mass/Vol] 31.6 g/dL 29.9-35.2 [facility] MCV Auto (RBC) [Entitic vol] on 04-02-2024 MCV (RBC) [Entitic vol] 87.9 fL 80.0-94.0 [facility] Monocytes Auto (Bld) [#/Vol] on 04-02-2024 Monocytes (Bld) [#/Vol] 0.7 10 3/uL 0.3-0.8 [facility] Monocytes/100 WBC Auto (Bld) on 04-02-2024 Monocytes/100 WBC (Bld) 12.9 % High 1.7-12.0 [facility] Neutrophils Auto (Bld) [#/Vo l]on 04-02-2024 Neutrophils (Bld) [#/Vol] 2.6 10 3/uL 1.4-6.5 [facility] Neutrophils/100 WBC Auto (Bl d)on 04-02-2024 Neutrophils/100 WBC (Bld) 50.4 % 43.0-75.0 [facility] No Panel Informationon 04-02 Eosinophils # (Auto) 0.2 10 3/uL 0.0-0.7 [facility] Immature Granulocyte # (Auto) 0.01 10 3/uL 0.00-0.03 [facility] Troponin I High Sensitivity 7.8 pg/mL 4.0-76.1 [facility] Comment on above: CUT-OFF POINTS HAVE BEEN [...] volume (Bld) [Entitic vol] 12.5 fL 9.5-13.5 [facility] Platelets Auto (Bld) [#/Vol] on 04-02-2024 Platelets (Bld) [#/Vol] 139 10 3/uL Low 150-450 [facility] RBC Auto (Bld) [#/Vol]on RBC (Bld) [#/Vol] 3.71 10 6/uL Low 4.70-6.10 [facility] Serum or plasma albumin/glob ulin mass ratioon 04-02-2024 Albumin/Globulin [Mass ratio] 0.9 {ratio} [facility] Serum or plasma anion gap de terminationon 04-02-2024 Anion gap [Moles/Vol] 11.2 mmol/L [facility] Basophils Auto (Bld) [#/Vol] on 04-01-2024 Basophils (Bld) [#/Vol] 0.0 10 3/uL 0.0-0.1 [facility] Basophils/100 WBC Auto (Bld) on 04-01-2024 Basophils/100 WBC (Bld) 0.2 % 0.2-2.0 [facility] Eosinophils/100 WBC Auto (Bl d)on 04-01-2024 Eosinophils/100 WBC (Bld) 1.8 % 0.9-7.0 [facility] Erythrocyte distribution wid th Auto (RBC) [Ratio]on 04-01-2024 Erythrocyte distribution width (RBC) [Ratio] 13.7 % 11.0-15.0 [facility] Estimated glomerular filtrat ion rate (GFR) non- Americanon 04-01-2024 GFR/1.73 sq M.predicted among non-blacks MDRD (S/P/Bld) [Vol rate/Area] 43 mL/min/{1.73_m2} Low >=60 [facility] Globulin Calc (S) [Mass/Vol] on 04-01-2024 Globulin (S) [Mass/Vol] 3.3 g/dL [facility] Hematocrit Auto (Bld) [Volum e fraction]on 04-01-2024 Hematocrit (Bld) [Volume fraction] 35.6 % Low 42.0-54.0 [facility] Hemoglobin [Mass/volume] in Bloodon 04-01-2024 Hemoglobin (Bld) [Mass/Vol] 11.1 g/dL Low 14.0-18.0 [facility] INR in Platelet poor plasma by Coagulation assayon 04-01-2024 INR Coag (PPP) [Relative time] 0.98 {INR} [facility] Comment on above: DESIRED INR:2.0-3.0 CONDITIONS NOT LISTED BELOW2.5-3.5 FOR PROSTHETIC HEART VALVE REPLACEMENT2.5-3.5 RECURRENT THROMBOSIS Laboratory - Chemistry and C hemistry - challengeon 04-01-2024 Albumin [Mass/Vol] 3.3 g/dL Low 3.4-5.0 [facility] ALP [Catalytic activity/Vol] 91 U/L 46-116 [facility] ALT [Catalytic activity/Vol] 19 U/L 16-63 [facility] AST [Catalytic activity/Vol] 12 U/L Low 15-37 [facility] Bilirubin [Mass/Vol] 0.4 mg/dL 0.2-1.0 [facility] Calcium [Mass/Vol] 8.5 mg/dL 8.5-10.1 [facility] Chloride [Moles/Vol] 102 mmol/L 98-107 [facility] CO2 [Moles/Vol] 26.5 mmol/L 21.0-32.0 [facility] Creatinine [Mass/Vol] 1.56 mg/dL High 0.70-1.30 [facility] GFR/1.73 sq M.predicted MDRD (S/P/Bld) [Vol rate/Area] 52 mL/min/{1.73_m2} Low >=60 [facility] Glucose [Mass/Vol] 234 mg/dL High 74-106 [facility] Natriuretic peptide B (Bld) [Mass/Vol] 284.0 pg/mL <=1800.0 [facility] Potassium [Moles/Vol] 4.2 mmol/L 3.5-5.1 [facility] Protein [Mass/Vol] 6.6 g/dL 6.4-8.2 [facility] Sodium [Moles/Vol] 138 mmol/L 136-145 [facility] Urea nitrogen [Mass/Vol] 18.0 mg/dL 7.0-18.0 [facility] Urea nitrogen/Creatinine [Mass ratio] 11.5 mg/mg [facility] - Hematology and Cell countson 04-01-2024 Immature granulocytes/100 WBC (Bld) 0.2 % 0.0-0.5 [facility] Leukocytes [#/volume] correc iván for nucleated erythrocytes in Blood by Automated counon 04-01-2024 WBC corrected for nucl RBC Auto (Bld) [#/Vol] 6.2 10 3/uL 4.0-11.0 [facility] Lymphocytes Auto (Bld) [#/Vo l]on 04-01-2024 Lymphocytes (Bld) [#/Vol] 1.3 10 3/uL 1.2-3.8 [facility] Lymphocytes/100 WBC Auto (Bl d)on 04-01-2024 Lymphocytes/100 WBC (Bld) 20.2 % Low 20.5-60.0 [facility] MCH Auto (RBC) [Entitic mass ]on 04-01-2024 MCH (RBC) [Entitic mass] 27.5 pg 25.9-34.0 [facility] MCHC Auto (RBC) [Mass/Vol]on 04-01-2024 MCHC (RBC) [Mass/Vol] 31.2 g/dL 29.9-35.2 [facility] MCV Auto (RBC) [Entitic vol] on 04-01-2024 MCV (RBC) [Entitic vol] 88.1 fL 80.0-94.0 [facility] Monocytes Auto (Bld) [#/Vol] on 04-01-2024 Monocytes (Bld) [#/Vol] 0.6 10 3/uL 0.3-0.8 [facility] Monocytes/100 WBC Auto (Bld) on 04-01-2024 Monocytes/100 WBC (Bld) 10.2 % 1.7-12.0 [facility] Neutrophils Auto (Bld) [#/Vo l]on 04-01-2024 Neutrophils (Bld) [#/Vol] 4.2 10 3/uL 1.4-6.5 [facility] Neutrophils/100 WBC Auto (Bl d)on 04-01-2024 Neutrophils/100 WBC (Bld) 67.4 % 43.0-75.0 [facility] No Panel Informationon 04-01 Troponin I High Sensitivity 6.7 pg/mL 4.0-76.1 [facility] Comment on above: CUT-OFF POINTS HAVE BEEN [...] Eosinophils # (Auto) 0.1 10 3/uL 0.0-0.7 [facility] Immature Granulocyte # (Auto) 0.01 10 3/uL 0.00-0.03 [facility] Platelet mean volume Auto (B ld) [Entitic vol]on 04-01-2024 Platelet mean volume (Bld) [Entitic vol] 11.8 fL 9.5-13.5 [facility] Platelets Auto (Bld) [#/Vol] on 04-01-2024 Platelets (Bld) [#/Vol] 152 10 3/uL 150-450 [facility] Prothrombin time (PT)on PT Coag (PPP) [Time] 10.4 s 9.0-11.6 [facility] RBC Auto (Bld) [#/Vol]on RBC (Bld) [#/Vol] 4.04 10 6/uL Low 4.70-6.10 [facility] Serum or plasma albumin/glob ulin mass ratioon 04-01-2024 Albumin/Globulin [Mass ratio] 1.0 {ratio} [facility] Serum or plasma anion gap de terminationon 04-01-2024 Anion gap [Moles/Vol] 13.7 mmol/L [facility] Office Visiton 03-22-2024 Follow-up visit [id number] Amina Goncalves 1945 M Date Provider Department Center 03/22/2024 [facility] Family History Problem Relation Age of Onset Cancer Mother Heart attack Other Family Status - Relation Status Age at Mother Other Level of Service:[address] [place] OFFICE/OUTPATIENT ESTABLISHED LOW MDM 20 MIN Normal [facility] HPon 03-16-2024 History Of Present I [...] a hospital admission) Transesophageal echo (JESSICA) 01/24/2024 [id number] Final Review of Systems Constitutional: Positive for [...] left atrial appendage closure per protocol. Normal [facility] NURSNOTEon 03-16-2024 NURSNOTE Bedside swallow stud y passed. Normal [facility] NURSNOTE RN educated pt on d/ c instructions. RN encouraged pt to voice any questions or concerns. Pt verbalizes no questions or concerns at this time. Normal [facility] Glucose mean value [Mass/vol ume] in Blood Estimated from glycated hemoglobinon 02-27-2024 Average glucose Estimated from glycated hemoglobin (Bld) [Mass/Vol] 160 mg/dL [facility] - Hematology and Cell countson 02-27-2024 HbA1c (Bld) [Mass fraction] 7.2 % High 4.5-6.2 [facility] Comment on above: ADA RECOMMENDED LIMI T 4.0 - 6.0ADA THERAPEUTIC TARGET < 7.0ACTION SUGGESTED> 7.0 Capillary blood glucose winifred urement by glucometer (mass/volume)Ordered By: Augustine Freitas on 02-24-2024 Glucose [Mass/Vol] 124 mg/dL Normal [facility] Comment on above: Random Glucose Refer ence Range is dependent on time and content of last meal. Glucose of more than 200 mg/dL in a nonstressed, ambulatory subject supports the diagnosis of Diabetes Mellitus. Result Comment: [place] om Glucose Reference Range is dependent on time and content of last meal. Glucose of more than 200 mg/dL in a nonstressed, ambulatory subject supports the diagnosis of Diabetes Mellitus. Performed By: #### G LULS #### Point of Care testing , Glucose Poct Glucometerson 0 02-24-2024 Commemt1 Glu2: Cleaned Meter Normal [facility] Comment on above: Result Comment: PERF ORMED BY: [place] [address] PATHOLOGIST GARDENING SUPERVISOR RICKY STRANGE M.D. Performed By: #### G LULS #### Point of Care testing , No Panel InformationOrdered By: Augustine Freitas on 02-24-2024 Bedside Glucose Comment Glu2: cleaned meter [facility] 36on 02-16-2024 36 There are pictures i n media Normal [facility] ECG 12 lead ECGon 02-16-2024 ECG 12 lead ECG [facility] [address] Electrocardiograph Report Signed Patient: Tito Goncalves MR#: [id number] 70 : 1945 Acct:[id number] Age/Sex: 79 / M ADM Date: 02/16/24 Loc: PS [facility]: [facility]: Augustine Freitas DO Ordering Provider: [...] T wave abnormality Confirmed by Viviane Herman ([id number]) on 02/17/2024 12:43:51 PM Referred By: ZENA Electronically Signed By:Viviane Herman Transcribed By: QI Signed By Viviane Herman MD 4 [phone] Normal [facility] Office Visiton 02-09-2024 Follow-up visit [id number] Amina Goncalves 1945 M Date Provider Department Center 02/09/2024 Daily-[facility] Family History Problem Relation Age of Onset Cancer Mother Heart attack Other Family Status - Relation Status Age at Mother Other Level of Service:65783 [place] OFFICE/OUTPATIENT ESTABLISHED LOW MDM 20 MIN Reason for Visit and Comments: Atrial Fibrillation [80] - S/p LAAO with Amulet device Normal [facility] 30on 01-29-2024 30 The patient is [...] Goal: Maintains hematologic stability Outcome: Progressing Normal [facility] BASIC METABOLIC PANELon 05-0 Anion gap [Moles/Vol] 11 mmol/L Normal 7-20 [facility] Comment on above: Performed By: #### L [id number] #### [facility] ([facility]) [address] [place] [address] Calcium [Mass/Vol] 8.0 mg/dL Low 8.6-10.3 [facility] Comment on above: Performed By: #### L [id number] #### [facility] ([facility]) [address] [place] [address] Chloride [Moles/Vol] 109 mmol/L High 98-107 [facility] Comment on above: Performed By: #### L [id number] #### [facility] ([facility]) [address] [place] [address] CO2 [Moles/Vol] 24 mmol/L Normal 21-31 [facility] Comment on above: Performed By: #### L [id number] #### [facility] ([facility]) [address] [place] [address] Creatinine [Mass/Vol] 1.17 mg/dL Normal 0.70-1.30 [facility] Comment on above: Performed By: #### L [id number] #### [facility] ([facility]) [address] [place] [address] GLOMERULAR FILTRATION RATE ML/MIN/1.73 SQ M.PREDICTED 63.8 mL/min/1.73m*2 Normal >60.0 [facility] Comment on above: Result Comment: The [facility]???s estimated glomerular filtration rate (eGFR) will [...] individuals. Performed By: #### L [id number] #### [facility] ([facility]) [address] [place] [address] Glucose [Mass/Vol] 125 mg/dL High 70-100 [facility] Comment on above: Performed By: #### L [id number] #### [facility] ([facility]) [address] [place] [address] Potassium [Moles/Vol] 3.6 mmol/L Normal 3.5-5.1 [facility] Comment on above: Performed By: #### L [id number] #### [facility] ([facility]) [address] [place] [address] Sodium [Moles/Vol] 140 mmol/L Normal 136-145 [facility] Comment on above: Performed By: #### L [id number] #### [facility] ([facility]) [address] [place] [address] Urea nitrogen [Mass/Vol] 22 mg/dL Normal 7-25 [facility] Comment on above: Performed By: #### L [id number] #### [facility] ([facility]) [address] [place] [address] UREA NITROGEN/CREATININE (MASS RATIO) IN SER/PLAS 18.8 Normal [facility] Comment on above: Performed By: #### L [id number] #### [facility] ([facility]) [address] [place] [address] CBCon 01-29-2024 Erythrocyte distribution width (RBC) [Ratio] 14.6 % Normal 11.5-15.0 [facility] Comment on above: Performed By: #### L [id number] #### [facility] ([facility]) [address] [place] [address] ERYTHROCYTE MEAN CORPUSCULAR HEMOGLOBIN CONCENTRATION (G/DL) BY AUTOMATED 32.8 g/dL Normal 32.0-35.0 [facility] Comment on above: Performed By: #### L [id number] #### [facility] ([facility]) [address] [place] [address] Hematocrit (Bld) [Volume fraction] 30.5 % Low 39.0-55.0 [facility] Comment on above: Performed By: #### L [id number] #### [facility] ([facility]) [address] [place] [address] Hemoglobin (Bld) [Mass/Vol] 10.0 g/dL Low 13.0-17.0 [facility] Comment on above: Performed By: #### L [id number] #### [facility] ([facility]) [address] [place] [address] MCH (RBC) [Entitic mass] 29.1 pg Normal 27.0-33.0 [facility] Comment on above: Performed By: #### L [id number] #### [facility] ([facility]) [address] [place] [address] MCV (RBC) [Entitic vol] 88.7 fL Normal 82.0-98.0 [facility] Comment on above: Performed By: #### L [id number] #### [facility] ([facility]) [address] [place] [address] PLATELETS (10*3/UL) IN BLOOD AUTOMATED COUNT 151 10*3/uL Normal 150-400 [facility] Comment on above: Performed By: #### L [id number] #### [facility] ([facility]) [address] [place] [address] RBC (Bld) [#/Vol] 3.44 10*6/uL Low 4.20-5.70 [facility] Comment on above: Performed By: #### L [id number] #### [facility] ([facility]) [address] [place] [address] WBC (Bld) [#/Vol] 6.43 10*3/uL Normal 4.00-10.60 [facility] Comment on above: Performed By: #### L [id number] #### [facility] ([facility]) [address] [place] [address] HEMOGLOBIN A1Con 01-29-2024 Glucose [Mass/Vol] 163 mg/dL Normal [facility] Comment on above: Performed By: #### L [id number] #### [facility] ([facility]) [address] [place] [address] HbA1c (Bld) [Mass fraction] 7.3 % High 4.0-6.0 [facility] Comment on above: Performed By: #### L [id number] #### [facility] ([facility]) [address] [place] [address] POCT GLUCOSE METER UNSOLICIT ED RESULTSon 01-29-2024 Glucose [Mass/Vol] 218 mg/dL High 70-105 [facility] Comment on above: Order Comment: Waive d Testing in the ED is performed under the ED CLIA certificate #[id number]. Result Comment: [email or web address] Performed By: #### L [id number] ####[facility] ([facility])[address] [place] [address] Glucose [Mass/Vol] 138 mg/dL High 70-[address] [facility] Comment on above: Order Comment: Waive d Testing in the ED is performed under the ED CLIA certificate #[id number]. Result Comment: [email or web address] Performed By: #### L [id number] #### [facility] ([facility]) [address] [place] [address] 30on 01-28-2024 30 The patient is Moder [...] and behaviors that affect risk of falls [place] fall precautions as indicated by assessment Problem: [...] Goal: Maintains hematologic stability Outcome: Progressing Normal [facility] BASIC METABOLIC PANELon 05-0 Anion gap [Moles/Vol] 12 mmol/L Normal 7-20 [facility] Comment on above: Performed By: #### L [id number] ####[facility] ([facility])[address] [place] [address] Calcium [Mass/Vol] 7.7 mg/dL Low 8.6-10.3 [facility] Comment on above: Performed By: #### L [id number] ####[facility] ([facility])[address] [place] [address] Chloride [Moles/Vol] 108 mmol/L High 98-107 [facility] Comment on above: Performed By: #### L [id number] ####[facility] ([facility])[address] [place] [address] CO2 [Moles/Vol] 21 mmol/L Normal 21-31 [facility] Comment on above: Performed By: #### L [id number] ####[facility] ([facility])[address] [place] [address] Creatinine [Mass/Vol] 1.16 mg/dL Normal 0.70-1.30 [facility] Comment on above: Performed By: #### L [id number] ####[facility] ([facility])[address] [place] [address] GLOMERULAR FILTRATION RATE ML/MIN/1.73 SQ M.PREDICTED 64.5 mL/min/1.73m*2 Normal >60.0 [facility] Comment on above: Result Comment: The [facility]???s estimated glomerular filtration rate (eGFR) will [...] of individuals. Performed By: #### L [id number] ####[facility] ([facility])[address] [place] [address] Glucose [Mass/Vol] 143 mg/dL High 70-100 [facility] Comment on above: Performed By: #### L [id number] ####[facility] ([facility])[address] [place] [address] Potassium [Moles/Vol] 3.3 mmol/L Low 3.5-5.1 [facility] Comment on above: Performed By: #### L [id number] ####[facility] ([facility])[address] [place] [address] Sodium [Moles/Vol] 138 mmol/L Normal 136-145 [facility] Comment on above: Performed By: #### L [id number] ####[facility] ([facility])[address] [place] [address] Urea nitrogen [Mass/Vol] 27 mg/dL High 7-25 [facility] Comment on above: Performed By: #### L [id number] ####[facility] ([facility])[address] [place] [address] UREA NITROGEN/CREATININE (MASS RATIO) IN SER/PLAS 23.3 Normal [facility] Comment on above: Performed By: #### L [id number] ####[facility] ([facility])[address] [place] [address] CBCon 01-28-2024 Erythrocyte distribution width (RBC) [Ratio] 14.4 % Normal 11.5-15.0 [facility] Comment on above: Performed By: #### L [id number] #### [facility] [address] [place] [address] ERYTHROCYTE MEAN CORPUSCULAR HEMOGLOBIN CONCENTRATION (G/DL) BY AUTOMATED 32.8 g/dL Normal 32.0-35.0 [facility] Comment on above: Performed By: #### L [id number] #### [facility] ([facility]) [address] [place] [address] Hematocrit (Bld) [Volume fraction] 31.4 % Low 39.0-55.0 [facility] Comment on above: Performed By: #### L [id number] #### [facility] ([facility]) [address] [place] [address] Hemoglobin (Bld) [Mass/Vol] 10.3 g/dL Low 13.0-17.0 [facility] Comment on above: Performed By: #### L [id number] #### [facility] ([facility]) [address] [place] [address] MCH (RBC) [Entitic mass] 29.0 pg Normal 27.0-33.0 [facility] Comment on above: Performed By: #### L [id number] #### [facility] ([facility]) [address] [place] [address] MCV (RBC) [Entitic vol] 88.5 fL Normal 82.0-98.0 [facility] Comment on above: Performed By: #### L [id number] #### [facility] ([facility] [address] [place] [address] PLATELETS (10*3/UL) IN BLOOD AUTOMATED COUNT 134 10*3/uL Low 150-400 [facility] Comment on above: Performed By: #### L [id number] #### [facility] ([facility] [address] [address] RBC (Bld) [#/Vol] 3.55 10*6/uL Low 4.20-5.70 [facility] Comment on above: Performed By: #### L [id number] #### [facility] ([facility]) [address] [place] [address] WBC (Bld) [#/Vol] 6.52 10*3/uL Normal 4.00-10.60 [facility] Comment on above: Performed By: #### L [id number] #### [facility] ([facility]) [address] [place] [address] MAGNESIUMon 01-28-2024 Magnesium [Mass/Vol] 1.8 mg/dL Low 1.9-2.7 [facility] Comment on above: Performed By: #### L [id number] ####[facility] ([facility])[address] [place] [address] PHOSPHORUSon 01-28-2024 Magnesium [Mass/Vol] 2.5 mg/dL Normal 2.5-5.0 [facility] Comment on above: Performed By: #### L [id number] ####[facility] ([facility])[address] [place] [address] POCT GLUCOSE METER UNSOLICIT ED RESULTSon 01-28-2024 Glucose [Mass/Vol] 258 mg/dL High 70-105 [facility] Comment on above: Order Comment: Waive d Testing in the ED is performed under the ED CLIA certificate #[id number]. Result Comment: [email or web address] Performed By: #### L [id number] #### [facility] ([facility]) [address] [place] [address] Glucose [Mass/Vol] 133 mg/dL High 70-105 [facility] Comment on above: Order Comment: Waive d Testing in the ED is performed under the ED CLIA certificate #[id number]. Result Comment: [email or web address] Performed By: #### L [id number] ####[facility] ([facility])[address] [place] [address] Glucose [Mass/Vol] 260 mg/dL High 70-105 [facility] Comment on above: Order Comment: Waive d Testing in the ED is performed under the ED CLIA certificate #[id number]. Result Comment: [email or web address] Performed By: #### L [id number] #### [facility] ([facility]) [address] [place] [address] Glucose [Mass/Vol] 140 mg/dL High 70-105 [facility] Comment on above: Order Comment: Waive d Testing in the ED is performed under the ED CLIA certificate #[id number]. Result Comment: [email or web address] Performed By: #### L [id number] ####[facility] ([facility])[address] [place] [address] 30on 01-27-2024 30 Daily Case Managemen t Update Multidisciplinary rounds have been completed. 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 Pericardial drain remains in place. On amiodarone gtt. Plan to discharge home when medically cleared. Diet: Dietary Orders (From admission, onward) Start Ordered 01/26/24 1247 Special Kitchen Request Once Comments: Chicken noodle soup Fruit cup Diet coke Tilapia (plain) Grant cake 01/26/24 1246 01/26/24 1246 Regular Diet [...] Answer: eval and treat 01/26/24 1241 Normal [facility] 30 The patient is Moder ately [...] medication and electrolyte replacement as ordered Normal [facility] BASIC METABOLIC PANELon 05-0 Anion gap [Moles/Vol] 11 mmol/L Normal 7-20 [facility] Comment on above: Performed By: #### L [id number] ####[facility] ([facility])[address] [place] [address] Calcium [Mass/Vol] 7.9 mg/dL Low 8.6-10.3 [facility] Comment on above: Performed By: #### L [id number] ####[facility] ([facility])[address] [place] [address] Chloride [Moles/Vol] 108 mmol/L High 98-107 [facility] Comment on above: Performed By: #### L [id number] ####[facility] ([facility])[address] [place] [address] CO2 [Moles/Vol] 22 mmol/L Normal 21-31 [facility] Comment on above: Performed By: #### L [id number] ####[facility] ([facility])[address] [place] [address] Creatinine [Mass/Vol] 1.31 mg/dL High 0.70-1.30 [facility] Comment on above: Performed By: #### L [id number] ####[facility] ([facility] [place] [address] GLOMERULAR FILTRATION RATE ML/MIN/1.73 SQ M.PREDICTED 55.7 mL/min/1.73m*2 Low >60.0 [facility] Comment on above: Result Comment: The [facility]???s estimated glomerular filtration rate (eGFR) will [...] of individuals. Performed By: #### L [id number] ####[facility] ([facility])[address] [place] [address] Glucose [Mass/Vol] 154 mg/dL High 70-100 [facility] Comment on above: Performed By: #### L [id number] ####[facility] ([facility])[address] [place] [address] Potassium [Moles/Vol] 3.6 mmol/L Normal 3.5-5.1 [facility] Comment on above: Performed By: #### L [id number] ####[facility] ([facility])[address] [place] [address] Sodium [Moles/Vol] 137 mmol/L Normal 136-145 [facility] Comment on above: Performed By: #### L [id number] ####[facility] ([facility])[address] [place] [address] Urea nitrogen [Mass/Vol] 30 mg/dL High 7-25 [facility] Comment on above: Performed By: #### L [id number] ####[facility] ([facility])[address] [place] [address] UREA NITROGEN/CREATININE (MASS RATIO) IN SER/PLAS 22.9 Normal [facility] Comment on above: Performed By: #### L [id number] ####[facility] ([facility])[address] [place] [address] CBCon 01-27-2024 Erythrocyte distribution width (RBC) [Ratio] 14.5 % Normal 11.5-15.0 [facility] Comment on above: Performed By: #### L [id number] ####[facility] ([facility])[address] [place] [address] ERYTHROCYTE MEAN CORPUSCULAR HEMOGLOBIN CONCENTRATION (G/DL) BY AUTOMATED 32.2 g/dL Normal 32.0-35.0 [facility] Comment on above: Performed By: #### L [id number] ####[facility] ([facility])[address] [place] [address] Hematocrit (Bld) [Volume fraction] 31.4 % Low 39.0-55.0 [facility] Comment on above: Performed By: #### L [id number] ####[facility] ([facility])[address] [place] [address] Hemoglobin (Bld) [Mass/Vol] 10.1 g/dL Low 13.0-17.0 [facility] Comment on above: Performed By: #### L [id number] ####[facility] ([facility])[address] [place] [address] MCH (RBC) [Entitic mass] 29.0 pg Normal 27.0-33.0 [facility] Comment on above: Performed By: #### L [id number] ####[facility] ([facility])[address] [place] [address] MCV (RBC) [Entitic vol] 90.2 fL Normal 82.0-98.0 [facility] Comment on above: Performed By: #### L [id number] ####[facility] ([facility] [place] [address] PLATELETS (10*3/UL) IN BLOOD AUTOMATED COUNT 134 10*3/uL Low 150-400 [facility] Comment on above: Performed By: #### L [id number] ####[facility] ([facility])[address] [place] [address] RBC (Bld) [#/Vol] 3.48 10*6/uL Low 4.20-5.70 [facility] Comment on above: Performed By: #### L [id number] ####[facility] ([facility])[address] [place] [address] WBC (Bld) [#/Vol] 8.70 10*3/uL Normal 4.00-10.60 [facility] Comment on above: Performed By: #### L [id number] ####[facility] ([facility])[address] [place] [address] MAGNESIUMon 01-27-2024 Magnesium [Mass/Vol] 2.0 mg/dL Normal 1.9-2.7 [facility] Comment on above: Performed By: #### L [id number] #### [facility] ([facility]) [address] [place] [address] NURSNOTEon 01-27-2024 NURSNOTE Patient Name: Tito Goncalves [...] voiced no concerns at this time. The group underwriter urged the primary RN to call the rapid team if any concerns arise overnight. Vic Euceda, RN Rapid Response Team Nurse [phone] 01/27/2024 9:04 PM Normal [facility] NURSNOTE Patient Name: Tito Goncalves : [...] this time. Vital signs are stable via curriculum and assessment director and daily lab values are unremarkable. If emergent concerns arise, please call rapid response team. Dominga Millard RN Rapid Response Team Nurse [phone] 01/27/2024 12:15 PM Normal [facility] PHOSPHORUSon 01-27-2024 Magnesium [Mass/Vol] 2.2 mg/dL Low 2.5-5.0 [facility] Comment on above: Performed By: #### L [id number] #### [facility] ([facility]) [address] [place] [address] POCT GLUCOSE METER UNSOLICIT ED RESULTSon 01-27-2024 Glucose [Mass/Vol] 206 mg/dL High 70-105 [facility] Comment on above: Order Comment: Waive d Testing in the ED is performed under the ED CLIA certificate #[id number]. Result Comment: [email or web address] Performed By: #### L [id number] #### [facility] ([facility]) [address] [place] [address] Glucose [Mass/Vol] 187 mg/dL High 70-105 [facility] Comment on above: Order Comment: Waive d Testing in the ED is performed under the ED CLIA certificate #[id number]. Result Comment: [email or web address] Performed By: #### L [id number] #### [facility] ([facility]) [address] [place] [address] Glucose [Mass/Vol] 223 mg/dL High 70-105 [facility] Comment on above: Order Comment: Waive d Testing in the ED is performed under the ED CLIA certificate #[id number]. Result Comment: [email or web address] Performed By: #### L [id number] #### [facility] ([facility]) [address] [place] [address] Glucose [Mass/Vol] 160 mg/dL High 70-105 [facility] Comment on above: Order Comment: Waive d Testing in the ED is performed under the ED CLIA certificate #[id number]. Result Comment: [email or web address] Performed By: #### L [id number] #### [facility] ([facility]) [address] [place] [address] 30on 01-26-2024 30 Daily Case Managemen t [...] soup Fruit cup Diet coke Tilapia (plain) Grant cake 01/26/24 1246 01/26/24 1246 Regular Diet [...] Answer: eval and treat 01/26/24 1241 Normal [facility] BASIC METABOLIC PANELon 05-0 Anion gap [Moles/Vol] 12 mmol/L Normal 7-20 [facility] Comment on above: Performed By: #### L [id number] #### [facility] ([facility]) [address] [place] [address] Calcium [Mass/Vol] 7.6 mg/dL Low 8.6-10.3 [facility] Comment on above: Performed By: #### L [id number] #### [facility] ([facility]) [address] [place] [address] Chloride [Moles/Vol] 109 mmol/L High 98-107 [facility] Comment on above: Performed By: #### L [id number] #### [facility] ([facility]) [address] [place] [address] CO2 [Moles/Vol] 21 mmol/L Normal 21-31 [facility] Comment on above: Performed By: #### L [id number] #### [facility] ([facility]) [address] [place] [address] Creatinine [Mass/Vol] 1.62 mg/dL High 0.70-1.30 [facility] Comment on above: Performed By: #### L [id number] #### [facility] ([facility]) [address] [place] [address] GLOMERULAR FILTRATION RATE ML/MIN/1.73 SQ M.PREDICTED 43.2 mL/min/1.73m*2 Low >60.0 [facility] Comment on above: Result Comment: The [facility]???s estimated glomerular filtration rate (eGFR) will [...] group of individuals. Performed By: #### L [id number] #### [facility] ([facility]) [address] [place] [address] Glucose [Mass/Vol] 152 mg/dL High 70-100 [facility] Comment on above: Performed By: #### L [id number] #### [facility] ([facility]) [address] [place] [address] Potassium [Moles/Vol] 3.9 mmol/L Normal 3.5-5.1 [facility] Comment on above: Performed By: #### L [id number] #### [facility] ([facility]) [address] [place] [address] Sodium [Moles/Vol] 138 mmol/L Normal 136-145 [facility] Comment on above: Performed By: #### L [id number] #### [facility] ([facility]) [address] [place] [address] Urea nitrogen [Mass/Vol] 37 mg/dL High 7-25 [facility] Comment on above: Performed By: #### L [id number] #### [facility] ([facility]) [address] [place] [address] UREA NITROGEN/CREATININE (MASS RATIO) IN SER/PLAS 22.8 Normal [facility] Comment on above: Performed By: #### L [id number] #### [facility] ([facility]) [address] [place] [address] CBCon 01-26-2024 Erythrocyte distribution width (RBC) [Ratio] 14.5 % Normal 11.5-15.0 [facility] Comment on above: Performed By: #### L [id number] #### [facility] ([facility]) [address] [place] [address] ERYTHROCYTE MEAN CORPUSCULAR HEMOGLOBIN CONCENTRATION (G/DL) BY AUTOMATED 31.9 g/dL Low 32.0-35.0 [facility] Comment on above: Performed By: #### L [id number] #### [facility] ([facility]) [address] [place] [address] Hematocrit (Bld) [Volume fraction] 33.2 % Low 39.0-55.0 [facility] Comment on above: Performed By: #### L [id number] #### [facility] ([facility]) [address] [place] [address] Hemoglobin (Bld) [Mass/Vol] 10.6 g/dL Low 13.0-17.0 [facility] Comment on above: Performed By: #### L [id number] #### [facility] ([facility]) [address] [place] [address] MCH (RBC) [Entitic mass] 29.1 pg Normal 27.0-33.0 [facility] Comment on above: Performed By: #### L [id number] #### [facility] ([facility]) [address] [place] [address] MCV (RBC) [Entitic vol] 91.2 fL Normal 82.0-98.0 [facility] Comment on above: Performed By: #### L [id number] #### [facility] ([facility]) [address] [place] [address] PLATELETS (10*3/UL) IN BLOOD AUTOMATED COUNT 123 10*3/uL Low 150-400 [facility] Comment on above: Performed By: #### L [id number] #### [facility] ([facility]) [address] [place] [address] RBC (Bld) [#/Vol] 3.64 10*6/uL Low 4.20-5.70 [facility] Comment on above: Performed By: #### L [id number] #### [facility] ([facility]ER) [address] [place] [address] WBC (Bld) [#/Vol] 12.08 10*3/uL High 4.00-10.60 [facility] Comment on above: Performed By: #### L [id number] #### [facility] ([facility]) [address] [place] [address] MAGNESIUMon 01-26-2024 Magnesium [Mass/Vol] 1.9 mg/dL Normal 1.9-2.7 [facility] Comment on above: Performed By: #### L [id number] #### [facility] ([facility]) [address] [place] [address] NURSNOTEon 01-26-2024 NURSNOTE Patient Name: Tito Goncalves [...] time, but encouraged to reach out to DYNAMOMETER MECHANIC if anything changes overnight or with any further concerns. Suleman Ortiz, RN Rapid Response Team Nurse [phone] 01/26/2024 10:20 PM Normal [facility] PHOSPHORUSon 01-26-2024 Magnesium [Mass/Vol] 3.7 mg/dL Normal 2.5-5.0 [facility] Comment on above: Performed By: #### L [id number] ####[facility] ([facility])[address] [place] [address] POCT GLUCOSE METER UNSOLICIT ED RESULTSon 01-26-2024 Glucose [Mass/Vol] 163 mg/dL High 70-105 [facility] Comment on above: Order Comment: Waive d Testing in the ED is performed under the ED CLIA certificate #[id number]. Result Comment: [email or web address] Performed By: #### L [id number] #### [facility] ([facility]) [address] [place] [address] Glucose [Mass/Vol] 206 mg/dL High 70-105 [facility] Comment on above: Order Comment: Waive d Testing in the ED is performed under the ED CLIA certificate #[id number]. Result Comment: [email or web address] [email or web address] Performed By: #### L [id number] ####[facility] ([facility])[address] [facility] [place] [address] Glucose [Mass/Vol] 155 mg/dL High 70-105 [facility] Comment on above: Order Comment: Waive d Testing in the ED is performed under the ED CLIA certificate #[id number]. Result Comment: [email or web address] Performed By: #### L [id number] #### [facility] ([employer]) [address] [place] [address] Glucose [Mass/Vol] 150 mg/dL High 70-105 [facility] Comment on above: Order Comment: Waive d Testing in the ED is performed under the ED CLIA certificate #[id number]. Result Comment: tful [email or web address] Performed By: #### L [id number] #### [facility] ([facility]) [address] [place] [address] 30on 01-25-2024 30 Daily Case Managemen t Update Multidisciplinary rounds have been completed. Barriers to Discharge: 01/24- patient here for planned atrial appendage closure. Per morning meeting the patient fell this morning, presumably from hypotension (BP in 60s/70s). Gave patient fluids to rescusitate but was unsuccessful. Patient was started on levophed and brought to MICU. ECHO showed pericardia effusion, went to microbiology lab technician this morning for pericardiocentesis. Patient has pericardial drain. May need pt ot given age but would anticipate home maybe with [facility]. CB Diet: Dietary Orders (From admission, onward) Start Ordered 01/24/24 1051 Regular Diet Diabetic Male (carb 60g/meal) Diet effective now Question Answer Comment Room Service? Yes Carbohydrate restriction: Diabetic Male (carb 60g/meal) 01/24/24 1050 Physician Expected Discharge Date: 01/25/2024 Discharge Delays: PT Six Click Score: 21 OT Six Click Score: PT Recommendations: OT Recommendations: New Consults: Normal [facility] BASIC METABOLIC PANELon 05-0 Anion gap [Moles/Vol] 18 mmol/L Normal 7-20 [facility] Comment on above: Performed By: #### L [id number] ####[facility] ([employer])[address] [place] [address] Calcium [Mass/Vol] 7.8 mg/dL Low 8.6-10.3 [facility] Comment on above: Performed By: #### L [id number] ####[facility] ([employer])[address]ucin[place] [address] Chloride [Moles/Vol] 104 mmol/L Normal 98-107 [facility] Comment on above: Performed By: #### L [id number] ####[facility] (BEAKER)[address] [place] [address] CO2 [Moles/Vol] 20 mmol/L Low 21-31 [facility] Comment on above: Performed By: #### L [id number] ####[facility] ([employer])[address] [place] [address] Creatinine [Mass/Vol] 1.99 mg/dL High 0.70-1.30 [facility] Comment on above: Performed By: #### L [id number] ####[facility] ([facility])[address] [place] [address] GLOMERULAR FILTRATION RATE ML/MIN/1.73 SQ M.PREDICTED 33.7 mL/min/1.73m*2 Low >60.0 [facility] Comment on above: Result Comment: The [facility]???s estimated glomerular filtration rate (eGFR) will [...] of individuals. Performed By: #### L [id number] ####[facility] ([facility])[address] [place] [address] Glucose [Mass/Vol] 257 mg/dL High 70-100 [facility] Comment on above: Performed By: #### L [id number] ####[facility] (BEAKER)[address] [place] [address] Potassium [Moles/Vol] 5.0 mmol/L Normal 3.5-5.1 [facility] Comment on above: Performed By: #### L [id number] ####[facility] ([facility]ER)[address] [place] [address] Sodium [Moles/Vol] 137 mmol/L Normal 136-145 [facility] Comment on above: Performed By: #### L [id number] ####[facility] ([facility]ER)[address] [place] [address] Urea nitrogen [Mass/Vol] 30 mg/dL High 7-25 [facility] Comment on above: Performed By: #### L [id number] ####[facility] (BE[facility]ER)[address] [place] [address] UREA NITROGEN/CREATININE (MASS RATIO) IN SER/PLAS 15.1 [facility] Comment on above: Performed By: #### L [id number] ####[facility] (BE[facility]ER)[address] [place] [address] BLOOD CULTUREon 01-25-2024 Bacteria identified Cx Nom (Bld) No growth at 5 days Normal [facility] Comment on above: Order Comment: Waive d Testing in the ED is performed under the ED CLIA certificate #[id number]. Performed By: #### L [id number] #### [facility] ([facility]) [address] [place] [address] Bacteria identified Cx Nom (Bld) No growth at 5 days Normal [facility] Comment on above: Performed By: #### L [id number] #### [facility] ([facility]) [address] [place] [address] CBCon 01-25-2024 Erythrocyte distribution width (RBC) [Ratio] 14.1 % Normal 11.5-15.0 [facility] Comment on above: Performed By: #### L [id number] #### [facility] ([facility]) [address] [place] [address] ERYTHROCYTE MEAN CORPUSCULAR HEMOGLOBIN CONCENTRATION (G/DL) BY AUTOMATED 31.9 g/dL Low 32.0-35.0 [facility] Comment on above: Performed By: #### L [id number] #### [facility] ([facility]) [address] [place] [address] Hematocrit (Bld) [Volume fraction] 34.5 % Low 39.0-55.0 [facility] Comment on above: Performed By: #### L [id number] #### [facility] ([facility]ER) [address] [place] [address] Hemoglobin (Bld) [Mass/Vol] 11.0 g/dL Low 13.0-17.0 [facility] Comment on above: Performed By: #### L [id number] #### [facility] ([facility]) [address] [place] [address] MCH (RBC) [Entitic mass] 28.9 pg Normal 27.0-33.0 [facility] Comment on above: Performed By: #### L [id number] #### [facility] ([facility]ER) [address] [place] [address] MCV (RBC) [Entitic vol] 90.6 fL Normal 82.0-98.0 [facility] Comment on above: Performed By: #### L [id number] #### [facility] ([facility]ER) [address] [place] [address] PLATELETS (10*3/UL) IN BLOOD AUTOMATED COUNT 191 10*3/uL Normal 150-400 [facility] Comment on above: Performed By: #### L [id number] #### [facility] ([facility]) [address] [place] [address] RBC (Bld) [#/Vol] 3.81 10*6/uL Low 4.20-5.70 [facility] Comment on above: Performed By: #### L [id number] #### [facility] ([facility]) [address] [place] [address] WBC (Bld) [#/Vol] 13.57 10*3/uL High 4.00-10.60 [facility] Comment on above: Performed By: #### L [id number] #### [facility] ([facility]) [address] [place] [address] CONSULTon 01-25-2024 CONSULT ------ -- Attestation signed by iLonel Mena MD at 01/26/2024 9:00 AM I [...] teaching. -- Adult ICU Consult Patient - iTto Goncalves Age - 79 y.[facility]. [facility] 1945 [id number] Date of Admission - 01/24/2024 10:46 AM [...] complication and patient was admitted to the [facility] for over night monitoring to be [...] mL, i (more content not included)... Normal [facility] CT CERVICAL SPINE WO IV CONT [...] signed: Trenton Martinez. 9 Invalid Interpretation Code [facility] CT CHEST WO IV CONTRASTon CT [...] signed: Trenton Martinez. 5 Invalid Interpretation Code [facility] CT HEAD WO IV CONTRASTon CT [...] signed: Trenton Martinez. 1 Invalid Interpretation Code [facility] HPon 01-25-2024 HP H&P reviewed. The pa [...] procedure. He would like to proceed. Normal [facility] LACTIC ACID WITH 4 HOUR REFL EXon 01-25-2024 LACTATE (MMOL/L) IN SER/PLAS 2.1 mmol/L Normal 0.5-2.2 [facility] Comment on above: Performed By: #### L [id number] ####[facility] ([facility])[address] [facility] [place] [address] LACTATE (MMOL/L) IN SER/PLAS 3.3 mmol/L Critically high 0.5-2.2 [facility] Comment on above: Performed By: #### L [id number] #### [facility] ([facility]) [address] [place] [address] MAGNESIUMon 01-25-2024 Magnesium [Mass/Vol] 1.8 mg/dL Low 1.9-2.7 [facility] Comment on above: Performed By: #### L [id number] ####[facility] ([facility])[address] [place] [address] POCT GLUCOSE METER UNSOLICIT ED RESULTSon 01-25-2024 Glucose [Mass/Vol] 164 mg/dL High 70-105 [facility] Comment on above: Order Comment: Waive d Testing in the ED is performed under the ED CLIA certificate #[id number]. Result Comment: tful ks2 Performed By: #### L [id number] #### [facility] ([facility]) [address] [place] [address] Glucose [Mass/Vol] 134 mg/dL High 70-105 [facility] Comment on above: Order Comment: Waive d Testing in the ED is performed under the ED CLIA certificate #[id number]. Result Comment: amur tad Performed By: #### L [id number] #### [facility] ([facility]) [address] [place] [address] Glucose [Mass/Vol] 167 mg/dL High 70-105 [facility] Comment on above: Order Comment: Waive d Testing in the ED is performed under the ED CLIA certificate #[id number]. Result Comment: amur tad Performed By: #### L [id number] #### [facility] ([employer]) [address] [place] [address] Glucose [Mass/Vol] 208 mg/dL High 70-105 [facility] Comment on above: Order Comment: Waive d Testing in the ED is performed under the ED CLIA certificate #[id number]. Result Comment: amur tad Performed By: #### L [id number] ####[facility] (BEAKER)[address] [place] [address] Glucose [Mass/Vol] 270 mg/dL High 70-105 [facility] Comment on above: Order Comment: Waive d Testing in the ED is performed under the ED CLIA certificate #[id number]. Result Comment: nbow en Performed By: #### L [id number] #### [facility] ([facility]) [address] [place] [address] PROCALCITONIN TESTon 024 PROCALCITONIN IN BLOOD 0.05 ng/mL Normal 0.00-0.10 [facility] Comment on above: Result Comment: Susp [...] and initial PCT<0.5ng/mL Performed By: #### L [id number] #### [facility] (BEAKER) [address] [place] [address] PROTIME-INRon 01-25-2024 INR IN PPP BY COAGULATION ASSAY 1.24 High 0.90-1.10 [facility] Comment on above: Result Comment: ACCC [...] RANGE. CHEST 1995;[id number]. Performed By: #### L [id number] #### [facility] (BEAKER) [address] [place] [address] PROTHROMBIN TIME (PT) IN PPP BY COAGULATION ASSAY 15.7 Seconds High 12.3-14.8 [facility] Comment on above: Performed By: #### L [id number] #### [facility] (BEAKER) [address] [place] [address] TROPONIN Ion 01-25-2024 Troponin I.cardiac [Mass/Vol] 0.84 ng/mL Critically high 0.00-0.04 [facility] Comment on above: Performed By: #### L [id number] ####[facility] (BEAKER)[address] [place] [address] 30on 01-23-2023 30 The patient is Moder [...] and maintained or improved Outcome: Progressing Normal [facility] BASIC METABOLIC PANELon 12-27 Anion gap [Moles/Vol] 13 mmol/L Normal 7-20 [facility] Comment on above: Performed By: #### L [id number] ####[facility] (BEAKER)[address] [place] [address] Calcium [Mass/Vol] 8.8 mg/dL Normal 8.6-10.3 [facility] Comment on above: Performed By: #### L [id number] ####[facility] (BEAKER)[address] [place] [address] Chloride [Moles/Vol] 103 mmol/L Normal 98-107 [facility] Comment on above: Performed By: #### L [id number] ####[facility] (BEAKER)[address] [place] [address] CO2 [Moles/Vol] 25 mmol/L Normal 21-31 [facility] Comment on above: Performed By: #### L [id number] ####[facility] (BEAKER)[address] [place] [address] Creatinine [Mass/Vol] 1.26 mg/dL Normal 0.70-1.30 [facility] Comment on above: Performed By: #### L [id number] ####[facility] (BEAKER)[address] [place] [address] GLOMERULAR FILTRATION RATE ML/MIN/1.73 SQ M.PREDICTED 58.4 mL/min/1.73m*2 Low >60.0 [facility] Comment on above: Result Comment: The [facility]???s estimated glomerular filtration rate (eGFR) will [...] of individuals. Performed By: #### L [id number] ####[facility] ([facility])[address] [place] [address] Glucose [Mass/Vol] 184 mg/dL High 70-100 [facility] Comment on above: Performed By: #### L [id number] ####[facility] ([facility])[address] [place] [address] Potassium [Moles/Vol] 4.3 mmol/L Normal 3.5-5.1 [facility] [facility] Comment on above: Performed By: #### L [id number] ####[facility] ([facility])[address] [place] [address] Sodium [Moles/Vol] 137 mmol/L Normal 136-145 [facility] Comment on above: Performed By: #### L [id number] ####[facility] ([facility])[address] [place] [address] Urea nitrogen [Mass/Vol] 21 mg/dL Normal 7-25 [facility] Comment on above: Performed By: #### L [id number] ####[facility] ([facility])[address] [place] [address] UREA NITROGEN/CREATININE (MASS RATIO) IN SER/PLAS 16.7 Normal [facility] Comment on above: Performed By: #### L [id number] ####[facility] ([facility])[address] [place] [address] HPon 04-30-2024 History Of Present Nori Goncalves [...] In April 2019 he presented to the [facility] with atrial fibrillation with controlled ventricular [...] cardiac remod (more content not included)... Normal [facility] MRSA/MSSA DNA NASALon 2023 MRSA DNA Negative Normal Negative [facility] Comment on above: Order Comment: Testi [...] preclude nasal colonization. Performed By: #### L [id number] ####[facility] ([facility])[address] [place] [address] MSSA DNA Negative Normal Negative [facility] Comment on above: Order Comment: Testi [...] preclude nasal colonization. Performed By: #### L [id number] ####[facility] ([facility])[address] [place] [address] NURSNOTEon 01-24-2024 NURSNOTE CHG wipes completed. Normal [facility] POCT GLUCOSE METER UNSOLICIT ED RESULTSon 01-24-2024 Glucose [Mass/Vol] 146 mg/dL High 70-105 [facility] Comment on above: Order Comment: Waive d Testing in the ED is performed under the ED CLIA certificate #[id number]. Result Comment: [email or web address] Performed By: #### L [id number] #### [facility] ([facility]) [address] [place] [address] TYPE AND SCREENon 01-24-2024 AB SCREEN Negative Normal [facility] Comment on above: Performed By: #### L [id number] ####[facility], ABO group Nom (Bld) A Normal [facility] Comment on above: Performed By: #### L [id number] ####[facility], RH TYPE IN BLOOD Positive Normal [facility] Comment on above: Performed By: #### L [id number] ####[facility], Basophils Auto (Bld) [#/Vol] on 01-18-2024 Basophils (Bld) [#/Vol] 0.0 10 3/uL 0.0-0.1 [facility] Basophils/100 WBC Auto (Bld) on 01-18-2024 Basophils/100 WBC (Bld) 0.4 % 0.2-2.0 [facility] Eosinophils/100 WBC Auto (Bl d)on 01-18-2024 Eosinophils/100 WBC (Bld) 2.3 % 0.9-7.0 [facility] Erythrocyte distribution wid th Auto (RBC) [Ratio]on 01-18-2024 Erythrocyte distribution width (RBC) [Ratio] 13.6 % 11.0-15.0 [facility] Estimated glomerular filtrat ion rate (GFR) non- Americanon 01-18-2024 GFR/1.73 sq M.predicted among non-blacks MDRD (S/P/Bld) [Vol rate/Area] 48 mL/min/{1.73_m2} Low >=60 [facility] Hematocrit Auto (Bld) [Volum e fraction]on 01-18-2024 Hematocrit (Bld) [Volume fraction] 37.0 % Low 42.0-54.0 [facility] Hemoglobin [Mass/volume] in Bloodon 01-18-2024 Hemoglobin (Bld) [Mass/Vol] 11.7 g/dL Low 14.0-18.0 [facility] Laboratory - Chemistry and C hemistry - challengeon 01-18-2024 Calcium [Mass/Vol] 8.6 mg/dL 8.5-10.1 [facility] Chloride [Moles/Vol] 103 mmol/L 98-107 [facility] CO2 [Moles/Vol] 30.4 mmol/L 21.0-32.0 [facility] Creatinine [Mass/Vol] 1.44 mg/dL High 0.70-1.30 [facility] GFR/1.73 sq M.predicted MDRD (S/P/Bld) [Vol rate/Area] 58 mL/min/{1.73_m2} Low >=60 [facility] Glucose [Mass/Vol] 140 mg/dL High 74-106 [facility] Potassium [Moles/Vol] 4.5 mmol/L 3.5-5.1 [facility] Sodium [Moles/Vol] 140 mmol/L 136-145 [facility] Urea nitrogen [Mass/Vol] 17.0 mg/dL 7.0-18.0 [facility] Urea nitrogen/Creatinine [Mass ratio] 11.8 mg/mg [facility] Laboratory - Hematology and Cell countson 01-18-2024 Immature granulocytes/100 WBC (Bld) 0.0 % 0.0-0.5 [facility] Leukocytes [#/volume] correc iván for nucleated erythrocytes in Blood by Automated counon 01-18-2024 WBC corrected for nucl RBC Auto (Bld) [#/Vol] 4.8 10 3/uL 4.0-11.0 [facility] Lymphocytes Auto (Bld) [#/Vo l]on 01-18-2024 Lymphocytes (Bld) [#/Vol] 1.6 10 3/uL 1.2-3.8 [facility] Lymphocytes/100 WBC Auto (Bl d)on 01-18-2024 Lymphocytes/100 WBC (Bld) 33.8 % 20.5-60.0 [facility] MCH Auto (RBC) [Entitic mass ]on 01-18-2024 MCH (RBC) [Entitic mass] 28.3 pg 25.9-34.0 [facility] MCHC Auto (RBC) [Mass/Vol]on 01-18-2024 MCHC (RBC) [Mass/Vol] 31.6 g/dL 29.9-35.2 [facility] MCV Auto (RBC) [Entitic vol] on 01-18-2024 MCV (RBC) [Entitic vol] 89.6 fL 80.0-94.0 [facility] Monocytes Auto (Bld) [#/Vol] on 01-18-2024 Monocytes (Bld) [#/Vol] 0.6 10 3/uL 0.3-0.8 [facility] Monocytes/100 WBC Auto (Bld) on 01-18-2024 Monocytes/100 WBC (Bld) 11.8 % 1.7-12.0 [facility] Neutrophils Auto (Bld) [#/Vo l]on 01-18-2024 Neutrophils (Bld) [#/Vol] 2.5 10 3/uL 1.4-6.5 [facility] Neutrophils/100 WBC Auto (Bl d)on 01-18-2024 Neutrophils/100 WBC (Bld) 51.7 % 43.0-75.0 [facility] No Panel Informationon 01-17 Eosinophils # (Auto) 0.1 10 3/uL 0.0-0.7 [facility] Immature Granulocyte # (Auto) 0.00 10 3/uL 0.00-0.03 [facility] Orders Onlyon 01-18-2024 Orders Only [id number] Amina Goncalves 1945 M Date Provider Department Center 01/18/2024 [facility] HeartVAS Family History Problem Relation Age of Onset Cancer Mother Heart attack Other Family Status - Relation Status Age at Mother Other Normal [facility] Platelet mean volume Auto (B ld) [Entitic vol]on 01-18-2024 Platelet mean volume (Bld) [Entitic vol] 11.4 fL 9.5-13.5 [facility] Platelets Auto (Bld) [#/Vol] on 01-18-2024 Platelets (Bld) [#/Vol] 186 10 3/uL 150-450 [facility] RBC Auto (Bld) [#/Vol]on RBC (Bld) [#/Vol] 4.13 10 6/uL Low 4.70-6.10 [facility] Serum or plasma anion gap de terminationon 01-18-2024 Anion gap [Moles/Vol] 11.1 mmol/L [facility] Prep for Procedureon 024 Prep for Procedure [id number] KapjamesEugen e R 1945 M Date Provider Department Center 11/24/2023 166MADISON HESTER Family History Problem Relation Age of Onset Cancer Mother Heart attack Other Family Status - Relation Status Age at Mother Other [facility] Optical coherence tomography study reporton 10-28-2023 [facility] Radiology Study observation (narrative) [facility] Prep for Procedureon 024 Prep for Procedure [id number] KapleEugen e R 1945 M Date Provider Department Center 10/27/2023 166MADISON HESTER Family History Problem Relation Age of Onset Cancer Mother Heart attack Other Family Status - Relation Status Age at Mother Other [facility] Orders Onlyon 10-25-2023 Orders Only [id number] MichjamesOliveren e R 1945 M Date Provider Department Center 10/25/2023 166-MADISON PAUL Family History Problem Relation Age of Onset Cancer Mother Heart attack Other Family Status - Relation Status Age at Mother Other [facility] Office Visiton 10-24-2023 Follow-up visit [id number] IvannaEugen e R 1945 M Date Provider Department Center 10/24/2023 MAGGY LEBRON Family History Problem Relation Age of Onset Cancer Mother Heart attack Other Family Status - Relation Status Age at Mother Other Level of Service:[address]472 [place] OFFICE/OUTPATIENT ESTABLISHED LOW MDM 20 MIN [facility] Prep for Procedureon 024 Prep for Procedure [id number] Amina Goncalves james Blackman 1945 M Date Provider Department [place] 10/17/2023 MADISON MOSES Family History Problem Relation Age of Onset Cancer Mother Heart attack Other Family Status - Relation Status Age at Mother Other [facility] 36on 10-05-2023 36 Patient underwent hi s pre-LAAO JESSICA. He is a candidate for an occlusive device. Spoke to patient regarding next steps. He needs to have shared decision documentation with another physician. He will be seeing his primary ballistics tester in a couple weeks. Discussed possible procedure date of 11/01/2023. He states he would consider this and would further discuss with his daughter. Of note, he is planning a trip to [place] for 1 month mid October and he will return the end of November. [facility] Telephoneon 10-05-2023 Telephone [id number] Amina Goncalves james Blackman 1945 Date [facility] Department [place] 10/05/2023 MADISON MOSES Family History Problem Relation Age of Onset Cancer Mother Heart attack Other Family Status - Relation Status Age at Mother Other [facility] Eric 09-16-2023 ANES ------ -- Attestation [...] 09/16/23 0900 Procedure: TRANSESOPHAGEAL ECHO (JESSICA) Location: [facility] Vascular Lab Clinical information reviewed: [facility] Meds Physical Exam Airway Mallampati: II Cardiovascular Rhythm: regular Rate: normal Dental Pulmonary Breath sounds clear to auscultation Abdominal Anesthesia Plan ASA 3 other (Moderate sedation) Anesthetic plan and risks discussed with patient. Use of blood products discussed with patient who. Plan discussed with fellow and attending. Additional Equipment Requests [facility] HPon 09-16-2023 HP ------ -- Attestation signed [...] there are no changes to the H&P. [facility] NURSNOTEon 09-16-2023 NURSNOTE RN educated pt on d/ c instructions. RN encouraged pt to voice any questions or concerns. Pt verbalizes no questions or concerns at this time. Normal [facility] NURSNOTE Bedside swallow stud y completed and passed. Normal [facility] Telephoneon 09-15-2023 Telephone [id number] Amina Goncalves 1945 M Date Provider Department Center 09/15/2023 RUSTY [facility] PA HeartVAS Family History Problem Relation Age of Onset Cancer Mother Heart attack Other Family Status - Relation Status Age at Mother Other Normal [facility] HPon 09-06-2023 [facility] Cardiology - [facility] Subjective Tito Goncalves is a 78 y.o. year old male patient being seen to discuss LAAO. He presented to [facility] ED in Jun 2023 for fall. He is anticoagulated with warfarin for afib. Back in December 2022 he had brain bleed s/p fall. Was treated at [facility]. He denies chest pain, SOB, and [...] In April 2019 he presented to the [facility] with atrial fibrillation with controlled ventricular [...] Take 1 tablet (more content not included)... [facility] Office Visiton 09-06-2023 Follow-up visit [id number] Amina Goncalves 1945 M Date Provider Department [place] 09/06/2023 OLIVER RUELAS TIMO Santiago Family History Problem Relation Age of Onset Cancer Mother Heart attack Other Family Status - Relation Status Age at Mother Other Level of Service:[address] [place] OFFICE/OUTPATIENT ESTABLISHED HIGH MDM 40-54 MIN [facility] Coding Summaryon 07-11-2023 Coding Summary HTMLBase 64 JvdmyzsePNs1kAj+PGhlYWQ+PE 3RMVHeU22ewPBjkZ4bD3XXDJkU NxvvFORGOXfAXdBtzuVuEQ8elK NjZXJu IC8+EZ0kBKWoGfnrwWKxb2Z9uX Q1B55aez6bSJuoqBQ3WWXcShOl uebzb7gucSt9MXsuNgswJcMp RNXllZ74TRR6mU66Wq18hTTnaX Woi2bawNh2EuCoRGDwMGJ4mYfs JRevd1EnVXSoL47zgTRjy0V7 QRJsxDrxuMWxNmVaxHC2hV4nNA zmwnhze4zrmkexSis9ol40cNYn s7O9lDU7A6MjenL7FJIcwNEy ZafpkOWGeW7slwbad2dpwdceCv HiNGStEFk4JZh7GSMztEytJcZe ZY60IHH6PCSttcEvQ3WuLWEu cBvaUjB5q9H7Lv7BQ0GGOiscQ8 VNTUFSWTwvdGQ+QT55ms38X4Yn GlcvHnl8SQJlIRC7tZB8cK0t PFJhYEpwe3U8gQN4E5BybmNgsx 8dx3ikZENkFIqpB70ygACaj7I3 PHYknFZ9OYTblWesLjHyhN58 Oyc+ZUKyvJkro8PrTejya3pxc6 ooxTg3WoxlUHZvteCckAmuMJI5 x0HsPn2dKOIxgLJ8cLI2nJ0y JiSjSqT2RByxY501HuFgoGTvHn cvV36fC4KseHL+YOStHqq0FQEl zAeeQZ3cT4NnMLTuhkuitOUb lJqeTH0fTCRzhkepYRPhdU9oJD FlP6t2VkEcPeH2QIgyK2FtIPZa ejeaXb50nS2gPiUbYdX3ADtf Q4UpqoY0NLVpuECbFVhmINK0Q8 7vc9H9MVDnPFNpWUN6pEI3hY1s bGlnbjogbGVmdDsgdmVydGlj VCfdCInjF051JAQdrTutIgSoMF luZyBEYXRlOiAgMTAvMTYvMjAy MzwvdGQ+RLPkFBY4tWnkFIPj fCLzDHxzZa9reSyavIqmCF5qQL VvrevxETEpeB9lACOrjKAayKbk TT6xVGJgzqake673RxQaIST1 UTJxzNJxC8MnaR4fWwHeNQIiBC ArH5XbySQkSSmeD577KRlnHsC1 TUSwznVtG7HvRQGtdVmiNcZ3 z9M1Ka1Ei1RxtaduF6PkvIKbQw OuUfpeCQb4H3XlNkvzlXN+PC90 XNTyGH69KNt2KNB8eNniGOic EIPqH0GlaJ0nAdOqDSXsGBZjRm c+PHRhYmxlIHdpZHRoPScxMDAl NwIkhYqeEA3uOo1oUVSsKNPg pCuteYFdRiBvg8hmEOHoRUcpPE 9joJckA1IibBL5GTIke3p0Uh28 J72nK0FemGH+PFOhaDP5jUS0 oF8qIpUeDzB0DCcdL298NyNgyL DsSdart0bdg0wmgCt3FuH0YSAj ozSrfUlqXWX3p6LcLb39F22i IHdpZHRoPSIxNSUiIHZhbGlnbj 3jbN4eUr6+HZDsxQB1qQU3cZ4g RqReXeP8KKyrN128ZbWxpURx Rbmaf2frb0ywoYw6OnUyVIImgo LgrHefGZT9y1JsHp93L9AudPtv d1ErXfo1zs97eOZbj0K7kHN0 K2DsJMSzimrsrSBjtAzbMU8hDM CnnemlLYHfpS4oHRPqP3y1CvZu UuR0EQvkI5NufaQ0QSAchAJt JCUtcKQClZ1hpfdcz4iothbuEp GeSYDzGBh3CXe6WFUsoFrzXoRd HZP3IgW5FEB2sWDnfL7exXvt hicozJ1hSdr+CEN0iNGgcBFNTK 1lOjwvdGQ+QKWjUIO9cKxfCGst QVGizM2oSSUcF9l0HcGfBjF8 YJpzJ6HvnpW6LZCozBSwCBQntD SBjD9xdjkhy0sptzkyNtDgWLGo DSq6YTk5QQVgwErzVcGwZZH1 ZrX2NDJ0gUKydT4tpCaaiaiwgS 9wOyc+BkfulInmTNM2GPr8O2Hk Lcv6PRRgmAlcBC0feZZgYKbp Yg0urVcbpPxnYP6mUKZiotkxs6 99InIgs7oxZWAtvGMfGDctMTW4 L97jm0Z0EPMkTBDvCEZ7uSM4 xG3koKjwxashfDNnbFotksKwzO dvCAfdFHafW937QSNdrQypIlTz JHz1I8RuDhx3KRWoaXueKN0q kTCwRIrnSe3qqDlfvLeoLN1nXP Ibqhlbz528HtVks2gjQYTvbXWc GWptOKW1X92ki6T1MSLyADNl FXB5aGR5lY0clQwtqntsfEPljT wbqhMgzZrwBDheIQpcQ704YROx zBgkWlSgzWe1V2TpHef3JHTg pJhmBC1lvNJvYSljJk1jgXgjfB ksHE6zYMEcbjdou607IuHsh7sr LOQzsBXpWRkkTVI4U50yh4F9 HTWrTCLxALU4rSY7qL1keIduki ogbGVmdDsgdmVydGljYWwtYWxp A945SBDknFsyYzChgXdmisZh EJfkLPm5F5OvRbdatVS+PC90YW VoGB19hCHhhHWlx6vcdXo4SnNo RYXrBDE8rCnbUMwnp2XkNXBw Y84ndKNeh1S4DQJixElioRMdTu KflFE6iL1hRGrgktvrp0jvzujs Foepv5oomk86nB53L55iFOzs ZZKfLXSdPEQsVLKxhOrksv0jxG 9wIi8+TVNewFE7iKZ5cU9bDKMx KyD6RNqhQ535XrZlkOHlLlgh b1ksj4fsbKl4InR3MHFwqbUckG wqGMB7w7DjLv68B42tAQdmSGZa PMMiNUBeVOXaqDavxc8yiN6j Ii8+OOFgyDA3tAU0nS2xHeKoKk H6WKbpI975QbZalQNpNzrsK46o F5VurLO+KDTfKot8ZJSvdUtd GE6mpQAxIHszWa7sURJ4IuBmCn TqEBphJ3WjAJIpdooqrlptvSE8 JBLbBHJnpW64Vg2exGpoWAXq nKRFzC7dyahvg5netvhmRiGkFA AgVUj9XMg2NVElpZjeTzEuYTC6 LaS2CWE3jCFreG3npEjgfyej wP7eO4EuUTBdnsmsKf95fK0qWh LbCnC4NYggGin+U0IBWEDmBYBE I5IUCMIAMVLKQDSLYD83PV84 dIEwi0J6jYR3X1OrQQTllpierd dhoIQ5EAJsFSXhjA38lFWpCNbi Fa6rb1B2e965UZZaTOIhqV40 Pv3ogZmwEWNhhDMWlA5oeoajt0 vyqwhiRsCtOOStCZk3FRa7KEUp aIffPiZaSTN8QfO4NTH8eYOj kJ8vvFfpwdcpqG4yOko+MDQvMj xjSVc4IuponNZ+JZMgBLZ3uCso KTcqHMRpiT1sIELzT8k0IsRl QyD1WNciX5ZcVSWacevtBb87nD 5cUdZbMeC0VOrxD7ZfwwG7CAJp fREnAVkrHFO6L44to1J4GNXi LVEuUAG1bUS1iY9zkYqiylbmmK MhjVzwngXttNllDLhyCPgzW869 KWYbcQjpHdz7UIphSUWdHH21 WQ02xNEah6C0hKX2A3AkCULcrf celhwiwWD8CPBxRUWkkZ82dLVy KUkvXc8se9G5l423EHTeAPCa jH27Zf8ceZgwMPWabXSKqI8bwb oco0ecptjmWkUbCEAqHHb2HEe3 GUPbjPfrNeJzIXW4TaF1DSD6 hICriB1ntAmaaokyhA4uHxp+TU FMRTwvdGQ+GSNjHSV1hUzuAIln DFBqvL8yRONqL7h6VlNxTdT8 LPxvW9KoYMGhilzpKa82pE5zGr ShCeS6DMzwX8GpkaW8KIIruWKt SFmkWJF9T25bp6D0VWZqPNYu PSP0wDP4oV9zjSraxdunhLEqyY dxuqJqgIipRZwcJKxsU300PDOu vLqlEiSgJLFuZM3nhTiieCN+ KI61if09V5IjWmzaStl5VOTsLD U9vVY0rR1hWXTuFLqws6W4zGV5 I3FmktSohg9zc2xhAEOyYQjv F46mrKZgv3Z7VPXrfFP0GNSucO zgFjZlqU75Nmd+GMOwkXijm0Gf Wjoqs7sna0snoWp9OyWiFMRb ivEwmWstRKK5a7JcEz08E30eXY fjBPPvPMErBADtCHOmzRfcdz8f xC3vGt0+KCPfkEX5qZI8oF7t RbNtDyL6GRriN893YyEtxEKmLh tjk5erp6hvtAy8NqTxFFCyzdVq hQmzBOO1l9DfFw23X5LpoOod n5QtUzc7uc25eUMhb7K5oOB9B2 FnIKPhkztebWPplRzoLH2cAKZs rfhpFUHhbX8iVGWeD2z7OnSw ZbO3DGyrN4OghfU3KNDyeSRrDQ GebOXScX9mvncnf6ajclgdPoXx COOlEPb0KKs4NHNtcKwlDyBw LGV4WfF3EWZ7iSHihK1jtZqsca youR7pKuj+SXx1j0tvwUWnPQ6s pTZ7GK66OH54dFIyk5D7zMN9 E3EtBEXldnqyfaceaKN2FFHzVJ KmxS08Ou0dxNewEp6rHRWkSAE9 ZMOacKXuL4DbjI6wMmBcHZAb VWWwR1LwwEUmYRpsX128JImfYc D9PZCiomSsW3RqWWNutXtbHxH2 o0N1Cr6FRW12AV86MZ61bTRz b2S7cVA0O8RtQNNenytvngolzP W1FQOyLFFgqB43Xh8gcLqrZq0r ETYzOPK7AFWrgWHfU6PjfP0l SuIqRLYgLZPjT8VtkCZtGPtyM5 85UEkaJhZ6FGNmvpTuP4JkGHUc yKotBdZ0l1N4Lw1NMb68HL47 AK06yKBuw8D3xGM9P3DjUYZnzl uboxaxdHX8JUQoXODzpC87Xc6b dFthCf0mPUChVUI3JDTxeALn L6InkQ0xTfWnTSSiXGCxU7FwlC JxFCgzG577KPcqEmV0QXBiezVw Z6SdPQRxnVfeZpL9d0Z4Ry1O VJmsfba9E7FlKvtkzLT+PC90YW IgLQ93jXTyuCAsd2ofxUb3PoOn JYWqDUV0qZkdDGdku3BbIGKs Y29 (more content not included)... Normal [facility] ED Clinical Summaryon 2022 ED Clinical Summary [facility] - Emergency Department [address] [place] [address] [id number] ED Clinical Summary PERSON INFORMATION Name: TITO GONCALVES Age: 78 Years Sex: MALE : 1945 MRN: Acct#: Visit Reason: Eye Injury; Fall; FALL/LT EYE LAC Arrival: 07/05/2023 16:48:26 Discharge: 07/05/2023 18:40:00 LOS: 000 01:52 Check In: 07/05/2023 16:48:26 Checkout:07/05/2023 18:40:00 Address: [facility] [employer] [facility] [place] [address] PCP: Augustine Metz PROVIDER INFORMATION Provider Role [...] Patient/family/caregiver verbalizes understanding of instructions given Comment: [facility] ED Patient Education Noteon 07-05-2023 ED Patient Education Note Education Materials [facility] ED Patient Summaryon 023 ED Patient Summary [facility] - Emergency Department [address] [place], [place] [id number] PATIENT DISCHARGE INSTRUCTIONS Patient Information Name: TITO GONCALVES Age: 78 Years Date of : 1945 Reason For Visit: Eye Injury; Fall; FALL/LT EYE LAC Arrival Time: 07/05/2023 16:48:26 Primary Care Physician: Augustine Metz Attending Physician: Colin Song DO Comment: Visit Diagnosis: Diagnoses This Visit Eye Injury ([id number]) Fall ([id number]) The Pharmacy at [facility] is open Tuesday through Tuesday from [...] alcohol and/or drug addiction problems; contact the [facility] 18/04 Crisis Hotline -Text 4HOPE to [phone]. If you received any narcotics, sedation, or [...] and treatment you received today in the [facility] Emergency Department were for an urgent problem and are not intended as complete care. It is important for you to follow up with a doctor, nurse practitioner, or physician?s seo assistant for ongoing care. If your symptoms [...] so we can reach you if necessary. [facility] Emergency Department has provided you with a complete list of medications post discharge. Please inform your fixed capital clerk/provider of your visit and for further instruction [...] relieve symptom (more content not included)... Normal [facility] Phone Msgon 02-01-2023 Phone Msg - [...] mailed to his address on file. Normal [facility] CBC AUTO DIFFon 2023 BASO # 0.0 103/ul Normal 0.0-0.1 [facility] Comment on above: Performed By: #### C BC #### [facility] [address] [address] [address] Arjun Menjivar Basophils/100 WBC (Bld) 0.4 % Normal 0.2-2.0 [facility] Comment on above: Performed By: #### C BC #### [facility] [address] [place] [address] Dr. Arjun Menjivar EO # 0.1 103/ul Normal 0.0-0.7 [facility] Comment on above: Performed By: #### C BC #### [facility] [address] [address] [address] Arjun Menjivar Eosinophils/100 WBC (Bld) 1.5 % Normal 0.9-7.0 [facility] Comment on above: Performed By: #### C BC #### [facility] [address] [place] [address] Dr. Arjun Menjivar Erythrocyte distribution width (RBC) [Ratio] 13.7 % Normal 11.0-15.0 [facility] Comment on above: Performed By: #### C BC #### [facility] [address] [address] [address] Arjun Menjivar Hematocrit (Bld) [Volume fraction] 41.9 % Critically low 42.0-54.0 [facility] Comment on above: Performed By: #### C BC #### [facility] [address] [place] [address] Dr. Arjun Menjivar Hemoglobin (Bld) [Mass/Vol] 13.7 g/dL Critically low 14.0-18.0 [facility] Comment on above: Performed By: #### C BC #### [facility] [address] [place] [address] Dr. Arjun Menjivar IG # 0.02 10e3/ul Normal 0.00-0.03 [facility] Comment on above: Performed By: #### C BC #### [facility] [address] [place] [address] Dr. Arjun Menjivar IG % 0.3 % Normal 0.0-0.5 [facility] Comment on above: Performed By: #### C BC #### [facility] [address] [place] [address] Dr. Arjun Menjivar LYMPH # 1.4 103/ul Normal 1.2-3.8 [facility] Comment on above: Performed By: #### C BC #### [facility] [address] [place] [address] Dr. Arjun Menjivar Lymphocytes/100 WBC (Bld) 16.9 % Critically low 20.5-60.0 [facility] Comment on above: Performed By: #### C BC #### [facility] [address] [place] [address] Dr. Arjun Menjivar MANUAL DIFF REQ NO Normal [facility] Comment on above: Performed By: #### C BC #### [facility] [address] [place] [address] Dr. Arjun Menjivar MCH (RBC) [Entitic mass] 28.8 pg Normal 25.9-34.0 [facility] Comment on above: Performed By: #### C BC #### [facility] [address] [place] [address] Dr. Arjun Menjivar MCHC (RBC) [Mass/Vol] 32.7 g/dL Normal 29.9-35.2 [facility] Comment on above: Performed By: #### C BC #### [facility] [address] [place] [address] Dr. Arjun Menjivar MCV (RBC) [Entitic vol] 88.2 fL Normal 80.0-94.0 [facility] Comment on above: Performed By: #### C BC #### [facility] [address] [place] [address] Dr. Arjun Menjivar MONO # 0.5 103/ul Normal 0.3-0.8 [facility] Comment on above: Performed By: #### C BC #### [facility] [address] [place] [address] Dr. Arjun Menjivar Monocytes/100 WBC (Bld) 5.9 % Normal 1.7-12.0 [facility] Comment on above: Performed By: #### C BC #### [facility] [address] [place] [address] Dr. Arjun Menjivar NEUT # 6.0 103/ul Normal 1.4-6.5 [facility] Comment on above: Performed By: #### C BC #### [facility] [address] [place] [address] Dr. Arjun Menjivar Neutrophils/100 WBC (Bld) 75.0 % Normal 43.0-75.0 [facility] Comment on above: Performed By: #### C BC #### [facility] [facility] [address] [place] [address] Dr. Arjun Menjivar Platelet mean volume (Bld) [Entitic vol] 11.4 fL Normal 9.5-13.5 [facility] Comment on above: Performed By: #### C BC #### [facility] [address] [place] [address] Dr. Arjun Menjivar PLT 169 103/ul Normal 150-450 [facility] Comment on above: Performed By: #### C BC #### [facility] [address] [place] [address] Dr. Arjun Menjivar RBC 4.75 106/ul Normal 4.70-6.10 [facility] Comment on above: Performed By: #### C BC #### [facility] [address] [place] [address] Dr. Arjun Menjivar WBC 8.0 103/ul Normal 4.0-11.0 [facility] Comment on above: Performed By: #### C BC #### [facility] [address] [place] [address] CSPINE WO CONon [...] SALINA ESPINOZA Date: 2023 16:25 Normal [facility] CT HEAD WO CONon 2023 CT [...] TOSHIA ANDRES Date: 2023 21:30 Normal [facility] PROF 14(COMP METB)on 023 Albumin [Mass/Vol] 3.7 g/dL Normal 3.4-5.0 [facility] Comment on above: Performed By: #### C MP ####[facility] [address] [place] [address]Dr. Arjun Menjivar Albumin/Globulin [Mass ratio] 1.1 {ratio} Normal [facility] Comment on above: Performed By: #### C MP ####[facility] [address] [place] [id number]. Arjun Menjivar ALP [Catalytic activity/Vol] 87 U/L Normal 46-116 [facility] Comment on above: Performed By: #### C MP ####[facility] [address] [place] [id number]. Arjun Menjivar ALT [Catalytic activity/Vol] 26 U/L Normal 16-63 [facility] Comment on above: Performed By: #### C MP ####[facility] [address] [place] [phone]. Arjun Menjivar Anion gap [Moles/Vol] 9.2 mmol/L Normal [facility] Comment on above: Performed By: #### C MP ####[facility] [address] [place] [phone]. Arjun Menjivar AST [Catalytic activity/Vol] 20 U/L Normal 15-37 [facility] Comment on above: Performed By: #### C MP ####[facility] [address] [place] [id number]. Arjun Menjivar Bilirubin [Mass/Vol] 0.4 mg/dL Normal 0.2-1.0 [facility] Comment on above: Performed By: #### C MP ####[facility] [address] [place] [address]Dr. Arjun Menjivar Calcium [Mass/Vol] 9.1 mg/dL Normal 8.5-10.1 [facility] Comment on above: Performed By: #### C MP ####[facility] [address] [place] [address]Dr. Arjun Menjivar Chloride [Moles/Vol] 105 mmol/L Normal 98-107 [facility] Comment on above: Performed By: #### C MP ####[facility] [address] [place] [phone]. Arjun Menjivar CO2 [Moles/Vol] 28.9 mmol/L Normal 21.0-32.0 [facility] Comment on above: Performed By: #### C MP ####[facility] [address] [place] [phone]. Arjun Menjivar Creatinine [Mass/Vol] 1.23 mg/dL Normal 0.70-1.30 [facility] Comment on above: Performed By: #### C MP ####[facility] [address] [place] [phone]. Arjun Menjivar EGFR-AF BULGARIAN >60 Normal >=60 [facility] Comment on above: Performed By: #### C MP ####[facility] [address] [place] [phone]. Arjun Menjivar EGFR-NON AF BULGARIAN 57 mL/min/1.73m2 Critically low >=60 [facility] Comment on above: Performed By: #### C MP ####[facility] [address] [place] [phone]. Arjun Menjivar Globulin (S) [Mass/Vol] 3.4 g/dL Normal [facility] Comment on above: Performed By: #### C MP ####[facility] [address] [place] [phone]. Arjun Menjivar Glucose [Mass/Vol] 126 mg/dL Critically high 74-106 T [place] [facility] Comment on above: Performed By: #### C MP ####[facility] [address] [place] [phone]. Arjun Menjivar Potassium [Moles/Vol] 4.1 mmol/L Normal 3.5-5.1 [facility] Comment on above: Performed By: #### C MP ####[facility] [address] [place] [phone]. Arjun Menjivar Protein [Mass/Vol] 7.1 g/dL Normal 6.4-8.2 [facility] Comment on above: Performed By: #### C MP ####[facility] [address] [place] [phone]. Arjun Menjivar Sodium [Moles/Vol] 139 mmol/L Normal 136-145 [facility] Comment on above: Performed By: #### C MP ####[facility] [address] [place] [phone]. Arjun Menjivar Urea nitrogen [Mass/Vol] 12.0 mg/dL Normal 7.0-18.0 [facility] Comment on above: Performed By: #### C MP ####[facility] [address] [place] [phone]. Arjun Menjivar Urea nitrogen/Creatinine [Mass ratio] 9.8 mg/mg Normal [facility] Comment on above: Performed By: #### C MP ####[facility] [address] [place] [phone]. Arjun Menjivar PROTIMEon 2023 INR Coag (PPP) [Relative time] 2.90 {INR} Normal [facility] Comment on above: Performed By: #### P TT, PT ####[facility] [address] [place] [address]Dr. Arjun Menjivar INR GUIDELINES SEE BELOW Normal [facility] Comment on above: Result Comment: PIOTR RED INR: 2.0 - 3.0 CONDITIONS NOT LISTED BELOW 2.5 - 3.5 FOR PROSTHETIC HEART VALVE REPLACEMENT 2.5 - 3.5 RECURRENT THROMBOSIS Performed By: #### P TT, PT ####[facility] [address] [place], [place] [address]Dr. Arjun Menjivar PT Coag (PPP) [Time] 28.9 s Critically high 9.0-11.6 [facility] Comment on above: Performed By: #### P TT, PT ####[facility] [address] [place] [address]Dr. Arjun Menjivar PTTon 2023 aPTT Coag (Bld) [Time] 37.7 s Critically high 22.3-36. 2 [facility] Comment on above: Performed By: #### P TT, PT ####[facility] [address] [place], [place] [address]Dr. 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 Anesthesiaon 11-09-2022 Anesthesia Patient: YE GONCALVES [...] Postoperative hydration status: euvolemic. Notes: Normothermia. Normal [facility] Anesthesia Patient: YE GONCALVES Age: 77 [...] release 325 mg = 1 caps, ORAL, [id number] trazodone = Desyrel 50 mg, ORAL, BID [...] available Procedure history: Endoscopic Retrograde Cholangiopancreatography (ERCP). (75253) on 11/09/2022 at 77 Years. Endoscopic Retrograde Cholangiopancreatography (ERCP). (97707) on 08/14/2021 at 76 Years. Esophagogastroduodenoscopy , flexible, transoral; with endoscopic ultrasound examination limited to the esophagus, stomach or duodenum, and adjacent structures (66162) on 07/10/2021 at 76 Years. Social History [...] palate, fauces, uvula visible). Assessment and Plan [place] [employer] Anesthesiologists (ASA) physical status classification: [...] recognition software. Verbal misinterpretations may occur. Normal [facility] ENDO Initial Data VS HW Prep [...] Bettencourt RN - 11/09/2022 7:[address] [facility] ENDO Outpatient Admission Da ta-Texton 11-09-2022 [...] Home : daughter Amna Surgeon Speak with Back Tender [employer] : Yes Voided : No Pain Level [...] Bettencourt RN - 11/09/2022 7:[address] [facility] Inpatient Patient Summaryon 11-09-[address] [facility] Discharge Instructions [address] [place] [address] \.br\(Patient Copy)\.br\ \.br\ \.br\Name: TITO GONCALVES Yehuda : 1945 \.br\Diagnosis: \.br\ \.br\Allergies: sulfa drugs; penicillins; iodine topical\.br\ \.br\Registration Date: 11/09/22\.br\.br\.br\ \.br\ Current Date Time: 11/09/2022 08:44:54 \.br\ \.br\Address: [facility] [facility] [address] \.br\Phone: [phone] \.br\ \.br\Primary Care Provider: \.br\Name: AUGUSTINE METZ\.br\Phone: [phone] \.br\ \.br\Thank you for choosing [facility] for your care. You are very important to us. Our goal is to demonstrate our high quality medical care and provide you with a very good patient experience.\.br\ You may receive a survey about our service. Please take the time to complete the survey and return it so we can continue to enhance our service.\.br\ Thank you again for allowing [facility] to care for your medical needs. If you have any questions about your care or follow up information please contact your doctor.\.br\.br\Follow-up Instructions\.br\.br\.br \With: Address: When: \.br\PUJA HOLBR[facility] [address], [address] [place] [address]\.br\ Business (1) Within Call for Appointment \.br\.br\.br\.br\.br\P [...] ient education materials, if any, will display below\.br\[facility] ENDOSCOPY DEPARTMENT\.br\.br\FOLLOW UP CARE\.br\? For biopsy [...] tarry sto (more content not included)... Normal [facility] OR Nursing Record - Endoon 0 11-09-2022 OR Nursing Record - Endo OR Nursing Record - Endo Summary Primary Physician: PUJA HOLBROOK MD Finalized Date/Time: 11/09/22 08:27:34 Pt. Name: TITO GONCALVES Yehuda David/Sex: 1945 Male Med Rec #: [id number] Physician: Financial #: [id number] Pt. Type: A Room/Bed: / Admit/Disch: 11/09/22 06:11:45 - Institution: Case Times - Endo Entry 1 Patient In Room Time 11/09/22 07:43:00 Out Room Time 11/09/22 08:24:00 Anesthesia Facility Times Induction Time 11/09/22 07:48:00 Stop Time 11/09/22 08:15:00 [facility] Protocol Yes Completed Surgery Start Time 11/09/22 [...] Minnie Saavedra RN Role Performed Surgeon Primary Deck Hand Primary Scrub Primary Time In 11/09/22 07:43:00 11/09/22 07:43:00 11/09/22 07:43:00 Time Out 11/09/22 08:24:00 11/09/22 08:24:00 11/09/22 08:24:00 Procedure ERCP(None) ERCP(None) ERCP(None) Last Modified By: Vitaly GAVIN, Martha Haider RN, Martha Barrera RN 11/09/22 08:21:41 11/09/22 08:21:41 11/09/22 08:21:41 Entry 4 Entry 5 Entry 6 Case Attendee Dena GAVIN, Josselin SPRINGER DO, JYOTI TOPETE Role Performed Deck Hand Secondary Anesthesiologist Primary Anesthesia Asst/SEARCH SPECIALIST Time In 11/09/22 07:43:00 11/09/22 07:43:00 11/09/22 [...] 08:23 Martha Haider RN 11/09/22 08:[address] [facility] Operative Reporton Operative Report Patient: YE [...] Notes: Follow-up in clinic as scheduled. Normal [facility] Comment on above: Order Comment: Ida sevilla Attachment [id number] can be viewed in source system Missing Attachment [id number] can be viewed in source system Missing Attachment [id number] can be viewed in source system Missing Attachment [id number] can be viewed in source system Missing Attachment [id number] can be viewed in source system Missing Attachment [id number] can be viewed in source system Result Comment: PACU Phase I - Endoon 2022 PACU Phase I - Endo PACU Phase I - Endo Summary Primary Physician: PUJA HOLBROOK MD Finalized Date/Time: 11/09/22 08:55:35 Pt. Name: TITO GONCALVES/Sex: 1945 Male Med Rec #: [id number] Physician: Financial #: [id number] Pt. Type: A Room/Bed: / Admit/Disch: 11/09/22 06:11:45 - Institution: PACU I Case Times - Endo Entry 1 In PACU I 11/09/22 08:25:00 Ready for Transfer 11/09/22 09:19:00 Last Modified By: Sariah Schreiber RN 11/09/22 08:55:34 Finalized By: Sariah Schreiber RN Document Signatures Signed By: Sariah Schreiber RN 11/09/22 08:[address] [facility] POC Glucoseon 11-09-2022 Glucose [Mass/Vol] 131 mg/dL High 72-100 [facility] Comment on above: Performed By: #### 1 [id number] ####[facility] [address] [place] [id number] Medical Director: Diogo Carcamo MD Preop - Endoon 11-09-2022 Preop - Endo Preop - Endo Summary Primary Physician: PUJA HOLBROOK MD Finalized Date/Time: 11/09/22 07:13:53 Pt. Name: TITO GONCALVES/Sex: 1945 Male Med Rec #: [id number] Physician: Financial #: [id number] Pt. Type: A Room/Bed: / Admit/Disch: 11/09/22 06:11:45 - Institution: Preop - Case Times - Endo Entry 1 Patient Arrival Time 11/09/22 06:31:00 Patient Ready for 11/09/22 07:11:00 Surgery Report Given to n/a Last Modified By: Kaylyn Bettencourt RN 11/09/22 07:13:51 Finalized By: Kaylyn Bettencourt RN Document Signatures Signed By: Kaylyn Bettencourt RN 11/09/22 07:[address] [facility] Provider Letter - Ambulatory on 11-09-2022 Provider Letter - Ambulatory AUGUSTINE METZ, [facility] [place] [address] RE: TITO GONCALVES 11/09/2022 Dear AUGUSTINE METZ [...] - (11/09/2022) GI ERCP with Anesthesia Normal [facility] Protocol/Pre-Proc TimeOut-Texton 11-09-2022 [facility] Protocol/Pre-Proc TimeOut-Text [facility] Protocol Entered On: 11/09/2022 7:13 EST Performed [...] Procedure Sedation Checklist : 11/09/2022 07:48 EST Matrha Haider RN - 11/09/2022 7:48 EST OR [...] Haider RN - 11/09/2022 7:[address] [facility] Phone Msgon 11-08-2022 Phone Msg - [...] Pt was asked to speak with his ballistics tester'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 Normal [facility] MRI ABDOMEN WO CONon 023 MRI [...] by: SANTOS DC Date: 2022-11-01 09:53 Normal [facility] Phone Msgon 10-28-2022 Phone Msg - From: [...] Number: H Did he say who his Sas Sql Developer was? From: Caren Carvalho RN To: Blanca Bazzi; Fela Alexandre; Sent: 10/28/2022 09:50:53 EST Subject: RE: Cardiac Clearance Caller Name: TITO GONCALVES; Caller Number: H He sees Dr. Metz sent LM for pt-Per Dr. Metz, pt can be off his Coumadin 5 days prior to his procedure. Normal [facility] AMB GI Physician Progress No irma 10-26-2022 AMB GI Physician Progress Note Chief Complaint Abdominal pain History of Present Illness 77-year-old male with recurrent history of choledocholithiasis last ERCP was done a year ago in [place] Patient had admission in hospital in [place] with fever and chills Patient has had [...] Est Pt Mod MDM / 30-39 min 31868, 10/26/2022 16:13:00 EST, Abdominal pain / Pancreatic cyst MR CP, 10/26/2022, Routine, PAIN, Abdominal pain / Pancreatic cyst 2. Pancreatic cyst K86.2 Pancreatic cyst stable very low CEA levels suggestive of simple serous cyst versus inflammatory cyst. Asymptomatic Ordered: AMB Follow - Up Appt Amb, 10/26/2022 16:13:00 EST, 4 weeks AMB Office/Outpt Est Pt Mod MDM / 30-39 min 91636, 10/26/2022 16:13:00 EST, Abdominal pain / Pancreatic [...] extended release, 325 mg= 1 caps, ORAL, [id number] trazodone = Desyrel, 50 mg, ORAL, BID [...] Care Team Primary Care Physician AUGUSTINE METZ [phone] Attending Physician PUJA HOLBROOK MD [phone] . Health Maintenance Pending (in the next year) There are no current recommendations pending Satisfied (in the past 1 year) There are no satisfied recommendations within the defined date range Normal [facility] Comprehensive Intake - Texto n 10-26-2022 [...] in, 183 cm) Body Mass Index Measured American : 18.85 kg/m2 BSA American : 1.79 m2 Ht/Wt Measurement Refused by [...] risk situation (congregated living, hemodialysis, infusion clinic, fci, assisted living, longterm, homeless fci, etc.)? : No Lori Cintron MA 10/26/2022 [...] Abnormal LFTs (liver function tests) (SNOMED CT :011117224 ) Name of Problem: Abnormal LFTs (liver function tests) ; Recorder: Blanca Bazzi; Confirmation: Confirmed ; Classification: Medical ; Code: 725826930 ; Contributor System: PowerChart ; Last Updated: 07/01/2021 12:43 EDT ; Life Cycle Date: 07/01/2021 ; Life Cycle Status: Active ; Vocabulary: SNOMED CT Arthritis (SNOMED CT :6319959 ) Name of Problem: Arthritis ; Recorder: Blanca Bazzi; Confirmation: Confirmed ; Classification: Medical ; Code: 4576909 ; Contributor System: PowerChart ; Last Updated: 07/01/2021 12:43 EDT ; Life Cycle Date: 07/01/2021 ; Life Cycle Status: Active ; Vocabulary: SNOMED CT Choledocholithiasis (SNOMED CT :896742516 ) Name of Problem: Choledocholithiasis ; Recorder: PUJA HOLBROOK MD; Confirmation: Confirmed ; Classification: Medical ; Code: 828613340 ; Contributor System: PowerChart ; Last Updated: 07/01/2021 13:27 EDT ; Life Cycle Date: 07/01/2021 ; Life Cycle Status: Active ; Responsible Provider: PUJA HOLBROOK MD; Vocabulary: SNOMED CT Diabetes (SNOMED CT :571580628 ) Name of Problem: Diabetes ; Recorder: Blanca Bazzi; Confirmation: Confirmed ; Classification: Medical ; Code: 235985123 ; Contributor System: [employer] BodyChart ; Last Updated: 07/01/2021 12:43 EDT ; Life Cycle Date: 07/01/2021 ; Life Cycle Status: Active ; Vocabulary: SNOMED CT Gallbladder disease (SNOMED CT :149102013 ) Name of Problem: Gallbladder disease ; Recorder: Blanca Bazzi; Confirmation: Confirmed ; Classification: Medical ; Code: 575656249 ; Contributor System: PowerChart ; Last Updated: 07/01/2021 12:44 EDT ; Life Cycle Date: 07/01/2021 ; Life Cycle Status: Active ; Vocabulary: SNOMED CT GERD (gastroesophageal reflux disease) (SNOMED CT :291643527 ) Name of Problem: GERD (gastroesophageal reflux disease) ; Recorder: Blanca Bazzi; Confirmation: Confirmed ; Classification: Medical ; Code: 752484227 ; Contributor System: PowerChart ; Last Updated: 07/01/2021 12:44 EDT ; Life Cycle Date: 07/01/2021 ; Life Cycle Status: Active ; Vocabulary: SNOMED CT Hypertension (SNOMED CT :6010030963 ) Name of Problem: Hypertension ; Recorder: Blanca Bazzi; Confirmation: Confirmed ; Classification: Medical ; Code: 6934894861 ; Contributor System: PowerChart ; Last Updated: 07/01/2021 12:44 EDT ; Life Cycle Date: 07/01/2021 ; Life Cycle Status: Active ; Vocabulary: SNOMED CT Irregular heart rhythm (SNOMED CT :342420876 ) Name of Problem: Irregular heart rhythm ; Recorder: Blanca Bazzi; Confirmation: Confirmed ; Classification: Medical (more content not included)... Normal [facility] Provider Letter - Ambulatory on 10-26-2022 Provider Letter - Ambulatory AUGUSTINE METZ, [facility] [place] [address] RE: TITO GONCALVES 10/26/2022 Dear AUGUSTINE METZ [...] - (10/26/2022) *.AMB Office Visit Note Normal [facility] Phone Msgon 10-22-2022 Phone Msg - [...] other dilemma is he is leaving for [place] on 11/13 for 6 weeks. From: Caren [...] him until December. He has moved to [facility] and Tito would be considered a new patient. His daughter did not feel he was acutely ill and that he can wait for the appointment next Tuesday. Normal [facility] GLYCOHEMOGLOBIN A1Con 2022 ADA RECOMMENDATION SEE BELOW Normal [facility] Comment on above: Result Comment: ADA RECOMMENDED LIMIT 4.0 - 6.0 ADA THERAPEUTIC TARGET < 7.0 ACTION SUGGESTED > 7.0 Performed By: #### A 1C ####[facility] [address] [place], [place] [address]Jq. Arjun Menjivar Glucose [Mass/Vol] 163 mg/dL Normal [facility] Comment on above: Performed By: #### A 1C ####[facility] [address] [place], [place] [address]EqMago Menjivar HbA1c (Bld) [Mass fraction] 7.3 % Critically high 4.5-6.2 [facility] Comment on above: Performed By: #### A 1C ####[facility] [address] [place], [place] [address]SgMago Menjivar Dermatopathologyon 2 Dermatopathology Name: TITO GONCALVES Pathologist: KRISTEN OCONNOR MD Date of Procedure: 09/07/2022 Date Received: 09/07/2022 Date Reported 09/08/2022 Submitting Physician: MACARIO BUI MD, Location: [facility] Copy To/Referring/Attending: MD SABRA SIMS FINAL DIAGNOSIS 3 SLIDES, [facility] #[id number] (BX: 08/03/2022) A. 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 B. SKIN, RIGHT MU-ISM, SHAVE BIOPSY: MELANOMA IN SITU, PRESENT ON [...] M.D. CANCER SUMMARY REPORT A. 3 SLIDES, [facility] #[id number] (BX: 08/03/2022): SPECIMEN Procedure: Biopsy, shave Specimen Laterality: Right TUMOR Tumor Site: Skin of other and unspecified parts of face: Right buddhist Histologic Type: Melanoma in situ, lentigo maligna [...] ADDITIONAL FINDINGS Additional Findings: None ADDITIONAL TESTING Stabilizing Machine Operator Blocks: Normal Block: None Tumor Block: A1 Electronically Signed Out By KRISTEN OCONNOR MD/[facility] Diagnostic interpretation performed at [facility] [id number] [place] [address] [id number], [facility] [id number] Microscopic Description: A. Microscopic examination reveals nests [...] OTHER Specimens Submitted As: A: 3 SLIDES, [facility] #[id number] (BX: 08/03/2022) Gross Description: Received for consultation from [facility] are three slides labeled [id number] (BX: 08/03/2022) along with the corresponding pathology report. Slide/Block Description 3 SLIDES, [id number]. Keep Slides: N Slides Returned: N Personal Consult: N Normal [facility] Comment on above: Performed By: #### D #### Dermatopathology GLYCOHEMOGLOBIN A1Con 2021 ADA RECOMMENDATION SEE BELOW Normal [facility] Comment on above: Result Comment: ADA RECOMMENDED LIMIT 4.0 - 6.0 ADA THERAPEUTIC TARGET < 7.0 ACTION SUGGESTED > 7.0 Performed By: #### A 1C ####[facility] [address] [place] [address]DrMago Menjivar Glucose [Mass/Vol] 151 mg/dL Normal [facility] Comment on above: Performed By: #### A 1C ####[facility] [address] [place], [place] [address]ClMago Menjivar HbA1c (Bld) [Mass fraction] 6.9 % Critically high 4.5-6.2 [facility] Comment on above: Performed By: #### A 1C ####[facility] [address] [id number]. Arjun Menjivar XR ESOPHAGUSon 06-28-2022 XR ESOPHAGUS [...] by: CARMEN PABLO Date: 2022-06-28 14:07 Normal [facility] XR MODIFIED BARIUM SWALLOWon 06-15-2022 XR MODIFIED [...] by: SANTOS DC Date: 2022-06-15 11:11 Normal [facility] Ambulatory Visit Summaryon 0 05-03-2022 Ambulatory Visit [...] [facility] [address] , [place] [address]- [phone] Medications What How Much When Instructions Unchanged [...] the si (more content not included)... Normal [facility] Patient Educationon 05-03-20 Patient Education Urology Benign [...] Follow these instructions at home: ? Take [id number]-[id number] and prescription medicines only as told by [...] d (more content not included)... Normal [facility] Urology Office/Clinic Noteon 05-03-2022 Urology Office/Clinic [...] [facility] [address], [place] [address]- [phone] Additional Instructions: PRN Patient Education Benign Prostatic [...] in lifetim (more content not included)... Normal [facility] Comment on above: Result Comment: Elec tronically Signed By: Mc ALMONTE MD\.br\Date and Time Signed: 05/03/22 09:26 EDT\.br\Electronically Co-Signed By: Jerri Lyles\.br\Date and Time Co-Signed: 05/03/22 09:24 EDT RAD - MISCon 04-28-2022 RAD - MIS [id number] Normal [facility] XR KUB 1 VIEWon 04-27-2022 XR KUB [...] by: SANTOS DC Date: 2022-04-27 06:18 Normal [facility] GLYCOHEMOGLOBIN A1Con 2021 ADA RECOMMENDATION SEE BELOW Normal [facility] Comment on above: Result Comment: ADA RECOMMENDED LIMIT 4.0 - 6.0 ADA THERAPEUTIC TARGET < 7.0 ACTION SUGGESTED > 7.0 Performed By: #### A 1C #### [facility] [address] [address] [address] Arjun Menjivar Glucose [Mass/Vol] 126 mg/dL Normal [facility] Comment on above: Performed By: #### A 1C #### [facility] [address] [place] [address] Dr. Arjun Menjivar HbA1c (Bld) [Mass fraction] 6.0 % Normal 4.5-6.2 [facility] Comment on above: Performed By: #### A 1C #### [facility] [address] [place] [address] Dr. Arjun Menjivar IRON AND TIBCon 04-07-2022 % SATURATION 25.4 % Normal [facility] Comment on above: Performed By: #### F ETIBC, B12FOL #### [facility] [address] [place] [address] Dr. Arjun Menjivar Iron [Mass/Vol] 62.0 ug/dL Critically low 65.0-175.0 [facility] Comment on above: Performed By: #### F ETIBC, B12FOL #### [facility] [address] [place] [address] Dr. Arjun Menjivar TIBC DIRECT 244.0 ug/dL Critically low 250.0-450. 0 [facility] Comment on above: Performed By: #### F ETIBC, B12FOL #### [facility] [address] [place] [address] Dr. Arjun Menjivar VIT B12 AND FOLATEon 022 Cobalamin (Vitamin B12) [Mass/Vol] 597.0 pg/mL Normal 193.0-986. 0 [facility] Comment on above: Performed By: #### F ETIBC, B12FOL #### [facility] [address] [place] [address] Dr. Arjun Menjivar FOLATE 21.50 ng/mL Normal 8.60-58.90 [facility] Comment on above: Performed By: #### F ETIBC, B12FOL #### [facility] [address] [place] [address] Dr. Arjun Menjivar CBCon 03-16-2022 ABSOLUTE BAS 0.0 10*3/uL Normal 0.0-0.2 [facility] Comment on above: Result Comment: Test ing performed at [place] [address] Performed By: #### R ENF, ACBC, PT #### Testing performed at [address] [address] ABSOLUTE EOS 0.00 10*3/uL Normal 0.0-0.7 [facility] Comment on above: Performed By: #### R HUGH MAGDALENO, PT #### Testing performed at [address] [address] ABSOLUTE NEUTROPHIL COUNT 8.5 10*3/uL High 1.4-6.5 [facility] Comment on above: Performed By: #### HUGH FARIA, PT #### Testing performed at [address] [address] Basophils/100 WBC (Bld) 0.1 % Normal 0.0-2.0 [facility] Comment on above: Performed By: #### HUGH FARIA, PT #### Testing performed at [address] [address] DTYPE AUTO DIFF Normal [facility] Comment on above: Performed By: #### R HUGH MAGDALENO, PT #### Testing performed at [address] [address] Eosinophils/100 WBC (Bld) 0.0 % Normal 0.0-11.0 [facility] Comment on above: Performed By: #### HUGH FARIA, PT #### Testing performed at [address] [address] Lymphocytes (Bld) [#/Vol] 0.60 10*3/uL Low 1.2-3.4 [facility] Comment on above: Performed By: #### R LUMA MAGDALENOBC, PT #### Testing performed at [address] [address] Lymphocytes/100 WBC (Bld) 6.4 % Low 20.0-55.0 [facility] Comment on above: Performed By: #### R LUMA MAGDALENOBC, PT #### Testing performed at [address] [address] Monocytes (Bld) [#/Vol] 0.4 10*3/uL Normal 0.0-0.7 [facility] Comment on above: Performed By: #### R HUGH MAGDALENO, PT #### [place] [address] Monocytes/100 WBC (Bld) 4.1 % Normal 0.0-10.0 [facility] Comment on above: Performed By: #### R HUGH MAGDALENO, PT #### Testing performed at [place] [id number] Neutrophils/100 WBC (Bld) 89.4 % High 37.0-75.0 [facility] Comment on above: Performed By: #### R HUGH MAGDALENO, PT #### [place] [address] Erythrocyte distribution width (RBC) [Ratio] 17.0 % High 11.5-14.5 [facility] Comment on above: Performed By: #### R HUGH MAGDALENO, PT #### [place] [address] Hematocrit (Bld) [Volume fraction] 33.9 % Low 42.0-52.0 [facility] Comment on above: Performed By: #### R HUGH MAGDALENO, PT #### Testing performed at [place] [id number] Hemoglobin (Bld) [Mass/Vol] 11.7 g/dL Low 14.0-18.0 [facility] Comment on above: Performed By: #### R LUMA MAGDALENOBC, PT #### Testing performed at [place] [id number] MCH (RBC) [Entitic mass] 30.0 pg Normal 26.0-35.0 [facility] Comment on above: Performed By: #### R LUMA MAGDALENOBC, PT #### Testing performed at [place] [id number] MCHC (RBC) [Mass/Vol] 34.5 g/dL Normal 27.0-37.0 [facility] Comment on above: Performed By: #### R HUGH MAGDALENO, PT #### Testing performed at [place] [id number] MCV (RBC) [Entitic vol] 87.2 fL Normal 80.0-100.0 [facility] Comment on above: Performed By: #### R LUMA MAGDALENOBC, PT #### Testing performed at [place] [id number] Platelet mean volume (Bld) [Entitic vol] 9.2 fL Normal 7.4-11.0 [facility] Comment on above: Performed By: #### R LUMA MAGDALENOBC, PT #### [place] [address] Platelets (Bld) [#/Vol] 154 10*3/uL Normal 130.0-400. 0 [facility] Comment on above: Performed By: #### R HUGH MAGDALENO, PT #### [place] [address] RBC (Bld) [#/Vol] 3.89 10*6/uL Low 4.0-6.1 [facility] Comment on above: Performed By: #### R HUGH MAGDALENO, PT #### Testing performed at [place] [id number] WBC (Bld) [#/Vol] 9.5 10*3/uL Normal 3.6-11.0 [facility] Comment on above: Performed By: #### R LUMA MAGDALENOBC, PT #### Testing performed at [place] [id number] CBC, EDIF, PLATELETon 2021 ABSOLUTE BASOPHIL COUNT 0.0 10*3/uL 0.0 - 0.2 10*3/uL [facility] Comment on above: Testing performed at [place] [id number] Basophils/100 WBC (Bld) 0.1 % 0.0 - 2.0 % [facility] Differential cell count method Nom (Bld) AUTO DIFF % [facility] Eosinophils (Bld) [#/Vol] 0.00 10*3/uL 0.0 - 0.7 10*3/uL [facility] Eosinophils/100 WBC (Bld) 0.0 % 0.0 - 11.0 % [facility] Erythrocyte distribution width (RBC) [Ratio] 17.0 % High 11.5 - 14.5 % [facility] Hematocrit (Bld) [Volume fraction] 33.9 % Low 42.0 - 52.0 % [facility] Hemoglobin (Bld) [Mass/Vol] 11.7 g/dL Low [facility] Interpretation and review of laboratory results Abnormal [facility] Lymphocytes (Bld) [#/Vol] 0.60 10*3/uL Low 1.2 - 3.4 10*3/uL [facility] Lymphocytes/100 WBC (Bld) 6.4 % Low 20.0 - 55.0 % [facility] MCH (RBC) [Entitic mass] 30.0 pg 26.0 - 35.0 PG [facility] MCHC (RBC) [Mass/Vol] 34.5 g/dL [facility] MCV (RBC) [Entitic vol] 87.2 fL [facility] Monocytes (Bld) [#/Vol] 0.4 10*3/uL 0.0 - 0.7 10*3/uL [facility] Monocytes/100 WBC (Bld) 4.1 % 0.0 - 10.0 % [facility] Neutrophils (Bld) [#/Vol] 8.5 10*3/uL High 1.4 - 6.5 10*3/uL [facility] Neutrophils/100 WBC (Bld) 89.4 % High 37.0 - 75.0 % [facility] Platelet mean volume (Bld) [Entitic vol] 9.2 fL [facility] Platelets (Bld) [#/Vol] 154 10*3/uL 130.0 - 400.0 10*3/uL [facility] RBC (Bld) [#/Vol] 3.89 10*6/uL Low 4.0 - 6.1 10*6/uL [facility] WBC (Bld) [#/Vol] 9.5 10*3/uL 3.6 - 11.0 10*3/uL [facility] PROTIMEon 03-16-2022 INR Coag (PPP) [Relative time] 1.37 {INR} High 0.85-1.10 [facility] Comment on above: Result Comment: 2.0-3.0 THERAPEUTIC RANGE 2.5-3.5 MECHANICAL VALVE RANGE Testing performed at [place] [address] Performed By: #### R ENF, ACBC, PT #### [place] [address] PT Coag (PPP) [Time] 16.9 s High 11.8-14.4 [facility] Comment on above: Performed By: #### R ENF, ACBC, PT #### [place] [address] PROTIME-INRon 03-16-2022 INR Coag (PPP) [Relative time] 1.37 {INR} High [facility] Comment on above: 2.0-3.0 THERAPEUTIC RANGE 2.5-3.5 MECHANICAL VALVE RANGE Testing performed at [place] [address] Interpretation and review of laboratory results Abnormal [facility] PT Coag (PPP) [Time] 16.9 s High [facility] RENAL FUNCTION PANELon 03-16 Albumin [Mass/Vol] 3.3 G/dl Low 3.5 - 5.0 G/dl [facility] Calcium [Mass/Vol] 7.9 mg/dL Low [facility] Chloride [Moles/Vol] 106 mmol/L [facility] Comment on above: Please note: Triglyc eride levels of 600mg/dL or higher may positively bias chloride results by approximately 2.1 mmol CO2 [Moles/Vol] 23 mmol/L [facility] Creatinine [Mass/Vol] 1.20 mg/dL [facility] GFR COMMENT Average GFR for 70+ years old = 75. [facility] Comment on above: Chronic Kidney disea se, GFR = <60. Kidney failure, GFR = <15. The GFR estimate is not adjusted for extreme body surface area or acute process, nor has it been validated for women or ethnic groups other than and . Testing performed at [place] [address] GFR/1.73 sq M.predicted among blacks MDRD (S/P/Bld) [Vol rate/Area] 76 mL/min/{1.73_m2} ml/min/1.7 3sq.m [facility] GFR/1.73 sq M.predicted among non-blacks MDRD (S/P/Bld) [Vol rate/Area] 63 mL/min/{1.73_m2} ml/min/1.7 3sq.m [facility] Glucose post fast [Mass/Vol] 230 mg/dL [facility] Comment on above: NORMAL <100 mg/dL PREDIABETES 101-126 mg/dL DIABETES 126 mg/dL or higher Interpretation and review of laboratory results Abnormal [facility] Phosphate [Mass/Vol] 2.9 mg/dL [facility] Potassium [Moles/Vol] 4.5 mmol/L [facility] Sodium [Moles/Vol] 136 mmol/L Low [facility] Urea nitrogen [Mass/Vol] 22 mg/dL High [facility] RENAL PANEL,FASTINGon 2021 ALBUMIN 3.3 G/dl Low 3.5-5.0 [facility] Comment on above: Performed By: #### R RASTA ACBC, PT #### [place] [address] Calcium [Mass/Vol] 7.9 mg/dL Low 8.4-10.2 [facility] Comment on above: Performed By: #### R ENF ACBC, PT #### Testing performed at [place] [id number] Chloride [Moles/Vol] 106 mmol/L Normal 98-107 [facility] Comment on above: Result Comment: [place] note: Triglyceride levels of 600mg/dL or higher may positively bias chloride results by approximately 2.1 mmol Performed By: #### R ENF ACBC, PT #### Testing performed at [place] [id number] CO2 [Moles/Vol] 23 mmol/L Normal 22-30 [facility] Comment on above: Performed By: #### R ENF ACBC, PT #### [place] [address] Creatinine [Mass/Vol] 1.20 mg/dL Normal 0.7-1.2 [facility] Comment on above: Performed By: #### R ENF ACBC, PT #### [place] [address] EST. GFR, 76 ml/min/1.73sq.m [facility] Comment on above: Performed By: #### R ENF ACBC, PT #### [place] [address] EST. GFR,Non 63 ml/min/1.73sq.m [facility] Comment on above: Performed By: #### R ENF ACBC, PT #### [place] [address] GFR Information Average GFR for 70+ years old = 75. Normal [facility] Comment on above: Result Comment: Health And Wellness Director david Kidney disease, GFR = <60. Kidney failure, GFR = <15. The GFR estimate is not adjusted for extreme body surface area or acute process, nor has it been validated for women or ethnic groups other than and . Testing performed at [place] [address] Performed By: #### R ENFLUMABC, PT #### [place] [address] Glucose [Mass/Vol] 230 mg/dL High 70-100 [facility] Comment on above: Result Comment: NORMAL <100 mg/dL PREDIABETES 101-126 mg/dL DIABETES 126 mg/dL or higher Performed By: #### R ENF ACBC, PT #### [place] [address] PHOSPHOROUS 2.9 MG/DL Normal 2.5-4.5 [facility] Comment on above: Performed By: #### R ENF ACBC, PT #### Testing performed at [place] [id number] Potassium [Moles/Vol] 4.5 mmol/L Normal 3.5-5.1 [facility] Comment on above: Performed By: #### R HUGH MAGDALENO, PT #### [place] [address] Sodium [Moles/Vol] 136 mmol/L Low 137-145 [facility] Comment on above: Performed By: #### R HUGH MAGDALENO, PT #### [place] [address] Urea nitrogen [Mass/Vol] 22 mg/dL High 7-20 [facility] Comment on above: Performed By: #### R HUGH MAGDALENO, PT #### [place] [address] GLUCOSE (POC DEVICE)on 03-15 GLUCOSE, POINT OF CARE [address] [facility] Interpretation and review of laboratory results Abnormal [facility] Operator [facility] Comment on above: Testing performed at [address] MRSA SCREENon 03-15-2022 MRSA DNA HERIBERTO+probe Ql (Unsp spec) Not detected Normal NOT DETECTED [facility] Comment on above: Performed By: #### M RSAST #### [place] [address] STAPH AUREUS SCREEN Not detected Normal NOT DETECTED [facility] Comment on above: Result Comment: Test ing performed at [place] [address] Performed By: #### M RSAST #### [place] [address] NOVEL CORONAVIRUSon 03-15-20 22 NARRATIVE This test was perfor med using isothermal HERIBERTO and has been approved as Emergency Use Authorization (EUA) for the qualitative detection [id number] nucleic acid. Normal [facility] Comment on above: Result Comment: Test ing performed at [place] [address] Performed By: #### C OVID #### [place] [address] SARS-CoV-2 (COVID-19) RNA HERIBERTO+probe Ql (Unsp spec) Not detected Normal NOT DETECTED [facility] Comment on above: Result Comment: [...] #### C OVID #### Testing performed at [address] [address] NOVEL CORONAVIRUS LAB 1 - NA SOPHARYNGEALon 03-15-2022 NARRATIVE -1 This test was perfor med using isothermal HERIBERTO and has been approved as Emergency Use Authorization (EUA) for the qualitative detection [id number] nucleic acid. [facility] Comment on above: Testing performed at [place], [place] [address] SARS-CoV-2 (COVID-19) RNA HERIBERTO+probe Ql (Unsp spec) Not detected NOT DETECTED [facility] Comment on above: Negative results do not [...] patient is critically ill or clinically deteriorating. [facility] POCT GLUCOSEon 03-15-2022 Glucose [Mass/Vol] 118 mg/dL High 70-100 [facility] Comment on above: Performed By: #### P OCGLU #### [place] [address] [employer] [id number] Normal [facility] Comment on above: Result Comment: Test ing performed at [place] [address] Performed By: #### P OCGLU #### [place] [address] PROTIMEon 03-15-2022 INR Coag (PPP) [Relative time] 1.36 {INR} High 0.85-1.10 [facility] Comment on above: Result Comment: 2.0-3.0 THERAPEUTIC RANGE 2.5-3.5 MECHANICAL VALVE RANGE Testing performed at [place] [address] Performed By: #### P T #### [place] [address] PT Coag (PPP) [Time] 16.8 s High 11.8-14.4 [facility] Comment on above: Performed By: #### P T #### [place] [address] PROTIME-INRon 03-15-2022 INR Coag (PPP) [Relative time] 1.36 {INR} High [facility] Comment on above: 2.0-3.0 THERAPEUTIC RANGE 2.5-3.5 MECHANICAL VALVE RANGE Testing performed at [place] [address] Interpretation and review of laboratory results Abnormal [facility] PT Coag (PPP) [Time] 16.8 s High [facility] PTTon 03-15-2022 aPTT Coag (Bld) [Time] 28.7 s Normal 22.4-34.7 [facility] Comment on above: Result Comment: CARDIAC AND PE/DVT THERAPUTIC RANGE 69-97 SEC VASCULAR/THREATENED LIMB THERAPUTIC RANGE 80-112 SEC Testing performed at [place] [address] Performed By: #### P TT #### [place] [address] aPTT Coag (Bld) [Time] 28.7 s [facility] Comment on above: CARDIAC AND PE/DVT THERAPUTIC RANGE 69-97 SEC VASCULAR/THREATENED LIMB THERAPUTIC RANGE 80-112 SEC Testing performed at [address] SCREEN: MRSA ONLY, NARES (IS OLATION SCREEN)on 03-15-2022 MRSA isol Org specific cx Ql (Nose) Not detected NOT DETECTED [facility] STAPHYOCOCCUS AUREUS BY PCR Not detected NOT DETECTED [facility] Comment on above: Testing performed at [address] TYPE AND SCREEN CROSSMATCH C ONVERTIBLEon 03-15-2022 TYPE AND SCREEN CROSSMATCH CONVERTIBLE WORKUP EXPIRES 03/18/2022,2359 ABO/RH(D) A POSITIVE ANTIBODY SCREEN NEGATIVE ARM BAND NUMBER [id number] Testing performed at [place] [address] Normal [facility] Comment on above: Performed By: #### T SCC #### [place] [address] TYPE AND SCREEN - POSSIBLE T RANSFUSIONon 03-15-2022 ABO and Rh group Nom (Bld ) Positive [facility] [employer] ARM BAND NUMBER [id number] [facility] [employer] ARM BAND NUMBER Testing performed at [address] Blood group antibody screen Ql Negative [facility] [employer] EXPIRATION DATE 03/18/2022,2359 [facility] XR KNEE RIGHT 2 VIEWSon 02-25 XR KNEE RIGHT 2 VIEWS EXAM: XR KNEE RIGH T 2 VIEWS HISTORY: COMPARISON: FINDINGS: Joint replacement is seen with overall preservation of normal alignment. No abnormal lucency is seen around the hardware. IMPRESSION: Joint replacement without hardware complication Normal [facility] XR Knee - right 2 [...] IMPRESSION IMPRESSION: Joint replacement without hardware complication [employer] Radiology Study observation (narrative) [employer] XR Knee - right 2 ViewsOrder ed By: Abel Resendiz on 03-15-2022 [employer] Work Phone: Operative Reporton 9 Operative Report MR#: [id number] S [facility] Pt. Name: Tito Goncalves Room #: [...] form. The patient was brought to the microbiology lab technician and a transesophageal echocardiogram was performed under [...] Flores MD Date Trans: 06/14/2019 12:23 A/asad [id number] cc: Augustine Metz D.O. [address] [place] [address] A [facility] [id number] Ryan Cardenas M.D. [address] [place] [address] [address] [facility] Repor ton 06-21-2017 [...] questions or concerns in the meantime. Normal [facility] Vital Signs Date Time Vital Sign Value Performing Clinician Facility 01-09-2025 09:57-0400 Body height 172.72 cm Augustine [employer] DO Work Phone: [facility] 01-09-2025 09:57-0400 Body mass index (BMI) [Ratio] 37.7 kg/m2 Augustine [employer] DO Work Phone: [facility] 01-09-2025 09:57-0400 Body weight 112.6 kg Augustine [employer] DO Work Phone: [facility] 01-09-2025 09:57-0400 Diastolic blood pressure 85 mm[Hg] Augustine [employer] DO Work Phone: [facility] 01-09-2025 09:57-0400 Heart rate 58 /min Augustine Ball DO Work Phone: [facility] 01-09-2025 09:57-0400 Respiratory rate 12 /min Augustine Ball DO Work Phone: [facility] 01-09-2025 09:57-0400 Systolic blood pressure 135 mm[Hg] Augustine Ball DO Work Phone: [facility] 01-01-2025 10:01-0400 Body height 182.9 cm Augustine Murcek DO Work Phone: [facility] 01-01-2025 10:01-0400 Body mass index (BMI) [Ratio] 33.91 kg/m2 Augustine Murcek DO Work Phone: [facility] 01-01-2025 10:01-0400 Body weight 113.4 kg Augustine Murcek DO Work Phone: [facility] 10-30-2024 09:49-0500 Body height 182.9 cm Augustine Murcek DO Work Phone: [facility] 10-30-2024 09:49-0500 Body mass index (BMI) [Ratio] 33.91 kg/m2 Augustine Murcek DO Work Phone: [facility] 10-30-2024 09:49-0500 Body weight 113.4 kg Augustine Murcek DO Work Phone: [facility] 10-22-2024 11:30-0500 Diastolic blood pressure 66 mm[Hg] Augustine Ball DO Work Phone: [facility] 10-22-2024 11:30-0500 Heart rate 52 /min Augustine Ball DO Work Phone: [facility] 10-22-2024 11:30-0500 Respiratory rate 14 /min Augustine Ball DO Work Phone: [facility] 10-22-2024 11:30-0500 SaO2% (BldA) [Mass fraction] 94 % Augustine Ball DO Work Phone: [facility] 10-22-2024 11:30-0500 Systolic blood pressure 119 mm[Hg] Augustine Ball DO Work Phone: [facility] 10-22-2024 10:55-0500 Inhaled oxygen flow rate 0 L/min Augustine Ball DO Work Phone: [facility] 10-22-2024 10:25-0500 Body temperature 97.5 [degF] Augustine Ball DO Work Phone: [facility] 10-22-2024 07:25-0500 Body height 182.88 cm Augustine Ball DO Work Phone: [facility] 10-22-2024 07:25-0500 Body weight 111.4 kg Augustine Ball DO Work Phone: [facility] 10-17-2024 13:34-0500 Body height 182.9 cm Augustine Rojascek DO Work Phone: [facility] 10-17-2024 13:34-0500 Body mass index (BMI) [Ratio] 33.91 kg/m2 Augustine Murcek DO Work Phone: [facility] 10-17-2024 13:34-0500 Body weight 113.4 kg Augustine Omercek DO Work Phone: [facility] 10-16-2024 12:55-0500 Diastolic blood pressure 64 mm[Hg] Christin Bolton MD Work Phone: [facility] 10-16-2024 12:55-0500 Systolic blood pressure 140 mm[Hg] Christin Bolton MD Work Phone: [facility] 10-10-2024 08:38-0500 Body height 172.72 cm [facility] 10-10-2024 08:38-0500 Body mass index (BMI) [Ratio] 37.3 kg/m2 [facility] 10-10-2024 08:38-0500 Body weight 111.18 kg [facility] 10-10-2024 08:38-0500 Diastolic blood pressure 70 mm[Hg] [facility] 10-10-2024 08:38-0500 Heart rate 62 /min [facility] 10-10-2024 08:38-0500 Respiratory rate 12 /min [facility] 10-10-2024 08:38-0500 Systolic blood pressure 127 mm[Hg] [facility] 10-03-2024 08:09-0500 Body height 182.9 cm Kingston Anat DO Work Phone: [facility] 10-03-2024 08:09-0500 Body mass index (BMI) [Ratio] 34.23 kg/m2 Kingston Anat DO Work Phone: [facility] 10-03-2024 08:09-0500 Body weight 114.49 kg Kingston Anat DO Work Phone: [facility] 10-03-2024 08:09-0500 Diastolic blood pressure 82 mm[Hg] Kingston Anat DO Work Phone: [facility] 10-03-2024 08:09-0500 Heart rate 62 /min Kingston Anat DO Work Phone: [facility] 10-03-2024 08:09-0500 SaO2% (BldA) [Mass fraction] 95 % Kingston Anat DO Work Phone: [facility] 10-03-2024 08:09-0500 Systolic blood pressure 132 mm[Hg] Kingston Anat DO Work Phone: [facility] 08-21-2024 09:22-0500 Body height 172.72 cm [facility] 08-21-2024 09:22-0500 Body mass index (BMI) [Ratio] 37.5 kg/m2 [facility] 08-21-2024 09:22-0500 Body weight 112.15 kg [facility] 08-21-2024 09:22-0500 Diastolic blood pressure 70 mm[Hg] [facility] 08-21-2024 09:22-0500 Heart rate 62 /min [facility] 08-21-2024 09:22-0500 Respiratory rate 12 /min [facility] 08-21-2024 09:22-0500 Systolic blood pressure 123 mm[Hg] [facility] 07-09-2024 08:50-0400 Body height 172.72 cm [facility] 07-09-2024 08:50-0400 Body mass index (BMI) [Ratio] 37.1 kg/m2 [facility] 07-09-2024 08:50-0400 Body weight 110.78 kg [facility] 07-09-2024 08:50-0400 Diastolic blood pressure 79 mm[Hg] [facility] 07-09-2024 08:50-0400 Heart rate 65 /min [facility] 07-09-2024 08:50-0400 Respiratory rate 12 /min [facility] 07-09-2024 08:50-0400 Systolic blood pressure 151 mm[Hg] [facility] 06-27-2024 08:54-0400 Body height 182.9 cm Simran Parikhr [employer]IST Work Phone: [facility] 06-27-2024 08:54-0400 Body mass index (BMI) [Ratio] 33.23 kg/m2 Simran Venicemor [employer] SPECIALIST Work Phone: [facility] 06-27-2024 08:54-0400 Body weight 111.13 kg Simran Venicemor [employer] SPECIALIST Work Phone: [facility] 06-27-2024 08:54-0400 Diastolic blood pressure 70 mm[Hg] Simran Venicemor [employer]KE [employer] SPECIALIST Work Phone: [facility] 06-27-2024 08:54-0400 Heart rate 56 /min Simran Venicemor [employer] SPECIALIST Work Phone: [facility] 06-27-2024 08:54-0400 SaO2% (BldA) [Mass fraction] 92 % Simran Venicemor [employer]KE [employer] FL[employer] SPECIALIST Work Phone: [facility] 06-27-2024 08:54-0400 Systolic blood pressure 136 mm[Hg] Simran Venicemor [employer] SPECIALIST Work Phone: [facility] 06-04-2024 11:14040 Body height 172.72 cm [facility] 06-04-2024 11:140400 Body mass index (BMI) [Ratio] 37.1 kg/m2 [facility] 06-04-2024 11:14040 Body weight 110.78 kg [facility] 06-04-2024 11:140400 Diastolic blood pressure 70 mm[Hg] [facility] 06-04-2024 11:140400 Heart rate 68 /min [facility] 06-04-2024 11:14040 Respiratory rate 18 /min [facility] 06-04-2024 11:140400 SaO2% (BldA) [Mass fraction] 99 % [facility] 06-04-2024 11:140400 Systolic blood pressure 130 mm[Hg] [facility] 04-04-2024 11:19040 Body height 172.72 cm DO Augustine Ball Work Phone: [facility] 04-04-2024 11:190400 Body mass index (BMI) [Ratio] 36.6 kg/m2 DO Augustine Ball Work Phone: [facility] 04-04-2024 11:19040 Body weight 109.37 kg DO Augustine Ball Work Phone: [facility] 04-04-2024 11:190400 Diastolic blood pressure 77 mm[Hg] DO Augustine Ball Work Phone: [facility] 04-04-2024 11:19-0400 Heart rate 55 /min DO Augustine Ball Work Phone: [facility] 04-04-2024 11:19-0400 Respiratory rate 12 /min DO Augustine Ball Work Phone: [facility] 04-04-2024 11:190400 Systolic blood pressure 151 mm[Hg] DO Augustine Ball Work Phone: [facility] 02-27-2024 09:0400 Body height 172.72 cm DO Augustine Ball Work Phone: [facility] 02-27-2024 09:21-0400 Body mass index (BMI) [Ratio] 36.7 kg/m2 DO Augustine Ball Work Phone: [facility] 02-27-2024 09:21-0400 Body weight 109.48 kg DO Augustine Ball Work Phone: [facility] 02-27-2024 09:21-0400 Diastolic blood pressure 72 mm[Hg] DO Augustine Ball Work Phone: [facility] 02-27-2024 09:21-0400 Heart rate 60 /min DO Augustine Ball Work Phone: [facility] 02-27-2024 09:21-0400 Respiratory rate 12 /min DO Augustine Ball Work Phone: [facility] 02-27-2024 09:21-0400 Systolic blood pressure 152 mm[Hg] DO Augustine Ball Work Phone: [facility] 02-24-2024 17:02-0400 Diastolic blood pressure 70 mm[Hg] DO Augustine Ball Work Phone: [facility] 02-24-2024 17:02-0400 Heart rate 55 /min DO Augustine Ball Work Phone: [facility] 02-24-2024 17:02-0400 Respiratory rate 16 /min DO Augustine Ball Work Phone: [facility] 02-24-2024 17:02-0400 SaO2% (BldA) [Mass fraction] 97 % DO Augustine Ball Work Phone: [facility] 02-24-2024 17:02-0400 Systolic blood pressure 132 mm[Hg] DO Augustine Ball Work Phone: [facility] 02-24-2024 16:20-0400 Body temperature 98 [degF] DO Augustine Ball Work Phone: [facility] 02-24-2024 15:55-0400 Inhaled oxygen flow rate 8 L/min DO Augustine Ball Work Phone: [facility] 02-24-2024 15:38-0400 Body height 182.88 cm DO Augustien Ball Work Phone: [facility] 02-24-2024 15:38-0400 Body mass index (BMI) [Ratio] 32.5 kg/m2 DO Augustine Ball Work Phone: [facility] 02-24-2024 15:38-0400 Body weight 109 kg DO Augustine Ball Work Phone: [facility] 01-31-2024 15:34-0400 Body height 181.61 cm [facility] 01-31-2024 15:34-0400 Body mass index (BMI) [Ratio] 34.5 kg/m2 [facility] 01-31-2024 15:34-0400 Body weight 114.07 kg [facility] 01-31-2024 15:34-0400 Diastolic blood pressure 79 mm[Hg] [facility] 01-31-2024 15:34-0400 Heart rate 53 /min [facility] 01-31-2024 15:34-0400 Respiratory rate 12 /min [facility] 01-31-2024 15:34-0400 Systolic blood pressure 130 mm[Hg] [facility] 10-31-2023 10:30-0500 Body height Augustine Ball Other [facility] [employer] Other 10-31-2023 10:30-0500 Body mass index (BMI) [Ratio] 33.47 kg/m2 Augustine Ball Other [facility] [employer] Other 10-31-2023 10:30-0500 Body weight 110.41 kg Augustine Ball Other [facility] [employer] Other 10-31-2023 10:30-0500 Diastolic blood pressure 68 mm[Hg] Augustine Ball Other [facility] [employer] Other 10-31-2023 10:30-0500 Respiratory rate 12 /min Augustine Ball Other [employer] Other 10-31-2023 10:30-0500 Systolic blood pressure 122 mm[Hg] Augustine Ball Other [employer] Other 03-16-2023 11:19-0400 Body height 182.9 cm [employer] Work Phone: [employer] 03-16-2023 11:19-0400 Body mass index (BMI) [Ratio] 33.23 kg/m2 [employer] Work Phone: [employer] 03-16-2023 11:19-0400 Body temperature 97.2 [degF] [employer] Work Phone: [employer] 03-16-2023 11:19-0400 Body weight 111.13 kg [employer] Work Phone: [employer] 01-05-2023 12:00-0400 Body height Augustine Ball Other [employer] Other 01-05-2023 12:00-0400 Body mass index (BMI) [Ratio] 33.36 kg/m2 Augustine Ball Other [employer] Other 01-05-2023 12:00-0400 Body weight 110.04 kg Augustine Ball Other [employer] Other 01-05-2023 12:00-0400 Diastolic blood pressure 70 mm[Hg] Augustine Ball Other [employer] Other 01-05-2023 12:00-0400 Respiratory rate 12 /min Augustine Ball Other [employer] Other 01-05-2023 12:00-0400 Systolic blood pressure 118 mm[Hg] Augustine Ball Other [employer] Other 10-04-2022 12:00-0500 Body height Augustine Ball Other [employer] Other 10-04-2022 12:00-0500 Body mass index (BMI) [Ratio] 33.44 kg/m2 Augustine Ball Other [employer] Other 10-04-2022 12:00-0500 Body weight 110.32 kg Augustine Ball Other [employer] Other 10-04-2022 12:00-0500 Diastolic blood pressure 78 mm[Hg] Augustine Ball Other [employer] Other 10-04-2022 12:00-0500 Respiratory rate 12 /min Augustine Ball Other [employer] Other 10-04-2022 12:00-0500 Systolic blood pressure 128 mm[Hg] Augustine Ball Other [employer] Other 10-01-2022 08:30-0500 Diastolic blood pressure 77 mm[Hg] [facility] 10-01-2022 08:30-0500 Systolic blood pressure 132 mm[Hg] [facility] 07-08-2022 11:47-0400 Body height 182.9 cm Pastor Bedoya MD Work Phone: [employer] 07-08-2022 11:47-0400 Body mass index (BMI) [Ratio] 33.23 kg/m2 Pastor Bedoya MD Work Phone: [employer] 07-08-2022 11:47-0400 Body weight 111.13 kg Pastor Bedoya MD Work Phone: [employer] [facility] 05-03-2022 08:48-0400 Blood Pressure Location [facility] 05-03-2022 08:48-0400 Diastolic blood pressure 67 mm[Hg] [facility] 05-03-2022 08:48-0400 Heart rate 70 /min [facility] 05-03-2022 08:48-0400 Respiratory rate 16 /min Mc [facility] 05-03-2022 08:48-0400 Systolic blood pressure 120 mm[Hg] [facility] 04-08-2022 09:49-0400 Body height 182.9 cm Azul Rachel APRN-TUB WASHER Work Phone: [employer] [facility] 04-08-2022 09:49-0400 Body mass index (BMI) [Ratio] 33.23 kg/m2 Azul Rachel FOUNTAIN OPERATOR-TUB WASHER Work Phone: [employer] [facility] 04-08-2022 09:49-0400 Body temperature 96.91 [degF] Azul Rachel APRN-TUB WASHER Work Phone: [facility] 04-08-2022 09:49-0400 Body weight 111.13 kg Azul Rachel FOUNTAIN OPERATOR-TUB WASHER Work Phone: [employer] [facility] 03-16-2022 11:00-0400 Body temperature 97.7 [degF] Pastor Bedoya MD Work Phone: [employer] [facility] 03-16-2022 11:00-0400 Diastolic blood pressure 70 mm[Hg] Pastor Bedoya MD Work Phone: [employer] [facility] 03-16-2022 11:00-0400 Heart rate 77 /min Pastor Bedoya MD Work Phone: [employer] [facility] 03-16-2022 11:00-0400 Respiratory rate 14 /min Pastor Bedoya MD Work Phone: [employer] 03-16-2022 11:00-0400 SaO2% (BldA) [Mass fraction] 96 % Pastor Bedoya MD Work Phone: [employer] 03-16-2022 11:00-0400 Systolic blood pressure 142 mm[Hg] Pastor Bedoya MD Work Phone: [employer] [facility] 03-15-2022 09:00-0400 Body height 182.9 cm Pastor Bedoya MD Work Phone: [employer] 03-15-2022 09:00-0400 Body mass index (BMI) [Ratio] 31.73 kg/m2 Pastor Bedoya MD Work Phone: [employer] 03-15-2022 09:00-0400 Body weight 106.14 kg Pastor Bedoya MD Work Phone: [employer] [facility] 2022 12:57-0400 Body height 182.9 cm Pastor Bedoya MD Work Phone: [employer] [facility] 2022 12:57-0400 Body mass index (BMI) [Ratio] 33.23 kg/m2 Pastor Bedoya MD Work Phone: [employer] 2022 12:57-0400 Body temperature 97.2 [degF] Pastor Bedoya MD Work Phone: [employer] [facility] 2022 12:57-0400 Body weight 111.13 kg Pastor Bedoya MD Work Phone: [employer] 11-04-2021 14:30-0500 Body height Carmen Kahn Other [facility] [employer] Other 03-20-2020 11:06-0400 BMI (Body Mass Index) 33.63 kg/m2 [facility] 03-20-2020 11:060400 Body Temperature 97.5 [degF] [facility] 03-20-2020 11:060400 Body weight 112.49 kg [facility] 03-20-2020 11:060400 Height 182.9 cm [facility] 1945 00:00-0500 >na< Damari Rojas Dept. of Dermato logy Encounters Encounter Date Encounter Type Care Provider Facility Start: 01-09-2025 End: 01-09-2025 ambulatory Augustine Isaías Work Phone: [facility] Work Phone: Start: 01-09-2025 End: 01-09-2025 Patient encounter procedure Augustine Isaías Work Phone: [facility] Work Phone: Start: 01-03-2025 End: 01-03-2025 Bamboo flowsheet Osman Shah FOUNTAIN OPERATOR-TUB WASHER Work Phone: [facility] Start: 01-03-2025 End: 01-03-2025 Bamboo flowsheet Osman Shah FOUNTAIN OPERATOR-TUB WASHER Work Phone: [facility] Start: 01-03-2025 End: 01-03-2025 Office outpatient visit 15 minutes Osman Shah FOUNTAIN OPERATOR-TUB WASHER Work Phone: [facility] Comment on [...] 10-22-2024 Admission to same day surgery center Augustine Metz DO Work Phone: [facility] [place] Start: 10-22-2024 End: 10-22-2024 ambulatory Augustine Metz DO Work Phone: [facility] Work Phone: Start: 10-17-2024 End: 10-17-2024 Patient encounter procedure Augustine Metz DO Work Phone: [facility] Work Phone: Start: 10-17-2024 End: 10-17-2024 ambulatory Augustine Metz DO Work Phone: [facility] Work Phone: Start: 10-17-2024 Encounter for preprocedural laboratory examination Augustine Freitas [facility] Start: 10-17-2024 End: 10-17-2024 Bamboo [...] Not Available Start: 10-10-2024 End: 10-10-2024 ambulatory [facility] Work Phone: Start: 10-10-2024 End: 10-10-2024 [facility]: Start: 10-04-2024 End: 10-04-2024 Patient encounter procedure Osman A Felter FOUNTAIN OPERATOR-TUB WASHER Work Phone: [facility] Comment on above: Neoplasm of unspecif ied behavior of bone, soft tissue, and skin (Primary Dx) Start: 10-04-2024 End: 10-04-2024 Bamboo flowsheet Osman A Felter FOUNTAIN OPERATOR-TUB WASHER Work Phone: [facility] Start: 10-04-2024 End: 10-04-2024 Bamboo flowsheet Osman A Felter FOUNTAIN OPERATOR-TUB WASHER Work Phone: [facility] Start: 10-04-2024 [...] Start: 08-21-2024 End: 08-21-2024 Patient encounter procedure [facility] Work Phone: Start: 08-14-2024 Non-patient / Non-visit [facility] Work Phone: Start: 08-14-2024 Non-patient / Non-visit [facility] Work Phone: Start: 07-11-2024 End: 07-11-[address] [facility] Start: 07-09-2024 Patient encounter procedure [facility] Start: 07-09-2024 End: 07-09-2024 ambulatory [facility] Work Phone: Start: 07-09-2024 End: 07-09-2024 Patient encounter procedure [facility] Work Phone: Start: 06-27-2024 End: 06-27-2024 Bamboo flowsheet Simran Muniz SMOKE AND FLAME SPECIALIST Work Phone: [facility] [address] Start: 06-27-2024 End: 06-27-2024 Bamboo flowsheet Simran Muniz SMOKE AND FLAME SPECIALIST Work Phone: [facility] Start: 06-27-2024 [facility] Work Phone: Start: 06-27-2024 End: 06-27-2024 Office outpatient visit 25 minutes Simran Muniz S[employer]KE AND FLAME SPECIALIST Work Phone: [facility] Comment on above: PLMD (periodic limb movement disorder) (Primary Dx); CUBA (obstructive sleep apnea); Daytime hypersomnolence; Primary insomnia; Snoring Start: 06-27-2024 End: 06-27-2024 ambulatory SIMRAN MUNIZ Not Available Start: 06-19-2024 End: 06-19-2024 Bamboo flowsheet Osman Shah FOUNTAIN OPERATOR-TUB WASHER Work Phone: [facility] Start: 06-19-2024 End: 06-19-2024 Bamboo flowsheet Osman Shah FOUNTAIN OPERATOR-TUB WASHER Work Phone: [facility] Start: 06-19-2024 End: 06-19-2024 Office outpatient visit 15 minutes Osman Shah FOUNTAIN OPERATOR-TUB WASHER Work Phone: [facility] Comment on above: Seborrheic keratosis ; [...] flowsheet Jose R Dodd DO Work Phone: [facility] Start: 06-08-2024 End: 06-08-2024 ambulatory JOSE R DODD Not Available Start: 06-04-2024 End: 06-04-2024 ambulatory [facility] Work Phone: Start: 06-04-2024 End: 06-04-2024 Patient encounter procedure [facility] Work Phone: Start: 05-16-2024 End: 05-16-2024 ambulatory DO Augustine Ball Work Phone: [facility] Work Phone: Start: 05-16-2024 End: 05-16-2024 Patient encounter procedure DO Augustine Ball Work Phone: [facility] Work Phone: Start: 04-18-2024 Non-patient / Non-visit DO Alo louann Ball Work Phone: [facility] Work Phone: Start: 04-12-2024 End: 04-12-2024 ambulatory AB [facility] Start: 04-04-2024 End: 04-04-2024 ambulatory AUGUSTINE FREITAS Not Available Start: 04-04-2024 End: 04-04-2024 ambulatory DO Augustine Ball Work Phone: [facility] Work Phone: Start: 04-04-2024 End: 04-04-2024 Patient encounter procedure DO Augustine Ball Work Phone: [facility] Work Phone: Start: 04-02-2024 Non-patient / Non-visit [facility] Work Phone: Start: 04-02-2024 Non-patient / Non-visit DO Alo louann Ball Work Phone: [facility] Work Phone: Start: 04-01-2024 Non-patient / Non-visit DO Alo louann Ball Work Phone: [facility] Work Phone: Start: 03-22-2024 End: 03-22-2024 ambulatory OLIVER CRANE [facility] Start: 03-16-2024 End: 03-16-2024 ambulatory MADISON PAUL [facility] Start: 03-09-2024 End: 03-09-2024 ambulatory JOSE R DODD Not Available Start: 03-06-2024 End: 03-06-2024 ambulatory AUGUSTINE Kelsey ZENA Not Available Start: 02-27-2024 End: 02-27-2024 ambulatory AUGUSTINE Kelsey OMERCATHLEENYaquelin Not Available Start: 02-27-2024 End: 02-27-2024 ambulatory DO Augustine Ball Work Phone: [facility] Work Phone: Start: 02-27-2024 End: 02-27-2024 Patient encounter procedure DO Augustine Ball Work Phone: [facility] Work Phone: Start: 02-24-2024 End: 02-24-2024 Admission to same day surgery center DO Augustine Ball Work Phone: [facility] [place] Start: 02-24-2024 End: 02-24-2024 ambulatory DO Augustine Ball Work Phone: [facility] Work Phone: Start: 02-16-2024 End: 02-16-2024 Patient encounter procedure DO Augustine Ball Work Phone: [facility]Pre[facility]Surgical [facility] Work Phone: Start: 02-16-2024 End: 02-16-2024 ambulatory DO Augustine Ball Work Phone: [facility] Work Phone: Start: 02-16-2024 Encounter for preprocedural cardiovascular examination Augustine Freitas [facility] Start: 02-15-2024 End: 02-15-2024 ambulatory AUGUSTINE FREITAS Not Available Start: 02-15-2024 End: 02-15-2024 ambulatory CHRISTIN BOLTON Not Available Start: 02-09-2024 End: 02-09-2024 [facility] Start: 01-31-2024 End: 01-31-2024 ambulatory [facility] Work Phone: Start: 01-31-2024 End: 01-31-2024 Patient encounter procedure [facility] Work Phone: Start: 01-31-2024 Non-patient / Non-visit [facility] Work Phone: Start: 01-29-2024 Evaluation and management of inpatient MANESH JULIO [facility] Start: 01-27-2024 Evaluation and management of inpatient [facility] Start: 01-26-2024 Evaluation and management of inpatient [facility] Start: 01-26-2024 Evaluation and management of inpatient [facility] Start: 01-25-2024 Evaluation and management of inpatient [facility] Start: 01-25-2024 Evaluation and management of inpatient [facility] Start: 01-25-2024 Evaluation and management of inpatient [facility] Start: 01-25-2024 Evaluation and management of inpatient [facility] Start: 01-25-2024 Evaluation and management of inpatient [facility] Start: 01-24-2024 End: 01-29-2024 Evaluation and management of inpatient [facility] Start: 01-18-2024 Non-patient / Non-visit [facility] Work Phone: Start: 01-10-2024 End: 01-10-2024 ambulatory OSMAN Damon SHAH Not Available Start: 12-16-2023 Non-patient / Non-visit [facility] Work Phone: Start: 11-01-2023 End: 11-01-2023 ambulatory Augustine Metz Other [employer] Other Start: 11-01-2023 Telephone encounter Augustine Metz [facility] Start: 10-31-2023 End: 10-31-2023 ambulatory Augustine Metz Other [employer] Other Start: 10-31-2023 Office outpatient vi sit 25 minutes Augustine Metz [facility] Start: 10-28-2023 Bamboo flowsheet Jose R Green hler DO Work Phone: [facility] Start: 10-28-2023 Bamboo flowsheet Jose R Green hler DO Work Phone: [facility] Start: 10-24-2023 End: 10-24-[address] [facility] Start: 09-16-2023 End: 01-24-2024 ambulatory [facility] Start: 09-06-2023 End: 09-06-2023 ambulatory [facility] Start: 07-11-2023 End: 07-11-2023 ambulatory Augustine Metz Other [employer] Other Start: 07-11-2023 Telephone encounter Augustine Metz [facility] Start: 07-10-2023 End: 07-10-2023 ambulatory Augustine Metz Other [employer] Other Start: 07-10-2023 Telephone encounter Augustine Metz FP [facility] Start: 07-05-2023 End: 07-05-2023 Emergency department patient visit Augustine Metz Facility:[facility] Start: 03-16-2023 ambulatory AZUL VIRGINIE [facility] Start: 03-16-2023 End: 03-16-2023 Office outpatient visit 15 minutes Azul Rachel FOUNTAIN OPERATOR-TUB WASHER Work Phone: [facility] Comment on above: Hx of total knee art hroplasty, right (Primary Dx) Start: 03-16-2023 End: 03-16-2023 Subsequent hospital visit by physician Azul LAN Work Phone: [facility] Start: 02-01-2023 ambulatory AUGUSTINE METZ Facilit y:[facility] Start: 01-24-2023 End: 02-23-2023 ambulatory SHAIKH Tiburcio PRICE Facility:[facility] Start: 01-22-2023 End: 01-22-2023 ambulatory Augustine Metz Other [employer] Other Start: 01-22-2023 Telephone encounter Augustine PHILIPPE [facility] Start: 2023 End: 01-22-[address] AUGUSTINE METZ Facility:[facility] Start: 01-05-2023 End: 01-05-2023 ambulatory Augustine Metz Other [employer] Other Start: 01-05-2023 Office outpatient vi sit 25 minutes Augustine Metz [facility] Start: 12-27-2022 End: 2023 ambulatory SHAIKH Tiburcio PRICE Facility:[facility] Start: 11-24-2022 End: 12-24-2022 ambulatory SHAIKH Tiburcio PRICE Facility:H1 Start: 11-10-2022 End: 11-10-2022 ambulatory Augustine Metz Other [employer] Other Start: 11-10-2022 Telephone encounter Augustine PHILIPPE [facility] Start: 11-09-2022 Telephone encounter Augustine PHILIPPE G [facility] Start: 11-09-2022 End: 11-10-2022 ambulatory AUGUSTINE METZ [facility] [employer] Other Start: 11-08-2022 ambulatory AUGUSTINE METZ Facilit y:[facility] Start: 11-01-2022 End: 11-02-[address] DOCTOR ABERNATHY Facility:H1 Start: 10-28-2022 ambulatory AUGUSTINE METZ Facilit y:[facility] Start: 10-27-2022 End: 11-24-2022 ambulatory SHAIKH Tiburcio PRICE Facility:H1 Start: 10-26-2022 End: 10-27-2022 ambulatory PUJA HOLBROOK MD Facility:[facility] Start: 10-19-2022 End: 10-20-[address] AUGUSTINE METZ Facility:H1 Start: 10-04-2022 Damari Rojas [facility] Start: 10-04-2022 End: 10-04-2022 ambulatory Augustine Metz Other [employer] Other Start: 10-04-2022 Office outpatient vi sit 25 minutes Augustine [facility] Start: 10-01-2022 ambulatory Ms. Osman Shah Facility:[id number] Start: 09-27-2022 End: 10-27-2022 ambulatory SHAIKH Tiburcio PRICE Facility:H1 Start: 09-14-2022 Damari oRjas [facility] Start: 09-09-2022 Pre-procedure evaluation check Augustine Metz Other [employer] Other Start: 09-07-[address] Macario Bui Facility:[id number] Start: 08-26-2022 End: 09-26-2022 ambulatory SHAIKH Tiburcio PRICE Facility:H1 Start: 07-27-2022 End: 08-25-2022 ambulatory SHAIKH Tiburcio PRICE Facility:H1 Start: 07-13-2022 End: 07-14-[address] AUGUSTINE METZ Facility:H1 Start: 07-08-2022 ambulatory PASTOR BEDOYA [facility] Start: 07-08-2022 End: 07-08-2022 Office outpatient visit 15 minutes Pastor Bedoya MD Work Phone: [facility] Comment on above: Hx of total knee art hroplasty, right (Primary Dx) Start: 07-08-2022 End: 07-08-2022 Subsequent hospital visit by physician Pastor Bedoya MD Work Phone: [facility] Start: 06-28-2022 End: 06-29-[address] AUGUSTINE METZ Facility:H1 Start: 06-28-2022 End: 07-26-2022 ambulatory SHAIKH Tiburcio PRICE Facility:H1 Start: 06-15-2022 End: 06-16-[address] AUGUSTINE METZ Facility:H1 Start: 05-27-2022 End: 06-26-2022 ambulatory SHAIKH Tiburcio PRICE Facility:H1 Start: 05-03-2022 End: 05-03-2022 Patient encounter procedure Mc Blackman [facility] Start: 04-26-2022 End: 04-27-[address] AUGUSTINE METZ Facility:H1 Start: 04-26-2022 End: 05-26-2022 ambulatory SHAIKH Tiburcio PRICE Facility:H1 Start: 04-19-2022 End: 05-08-[address] AUGUSTINE METZ Facility:H1 Start: 04-08-2022 ambulatory AZUL RACHEL [facility] Start: 04-08-2022 End: 04-08-2022 Postop follow up visit related to original px Azul LAN Work Phone: [facility] Comment on above: Hx of total knee art hroplasty, right (Primary Dx) Start: 04-08-2022 End: 04-08-2022 Subsequent hospital visit by physician Azul LAN Work Phone: [facility] Start: 04-07-2022 End: 04-08-[address] AUGUSTINE METZ Facility:H1 Start: 03-26-2022 End: 04-23-2022 ambulatory SHAIKH Tiburcio PRICE Facility:H1 Start: 03-15-2022 End: 03-16-2022 Patient encounter status Pastor Bedoya MD Work Phone: [facility] Start: 03-15-2022 End: 03-16-2022 Subsequent hospital visit by physician Pastor Bedoya MD Work Phone: [facility] Comment on above: S/P total knee arthr oplasty, right Start: 2022 End: 2022 Office outpatient new 60 minutes Pastor Bedoya MD Work Phone: [facility] Comment on above: Right knee pain, uns pecified chronicity (Primary Dx); Pain in prosthetic joint, sequela Start: 2022 End: 2022 Subsequent hospital visit by physician Pastor Bedoya MD Work Phone: [facility] Start: 11-04-2021 End: 11-04-2021 ambulatory Carmen Kahn Other [employer] Other Start: 11-04-2021 Office outpatient vi sit 25 minutes Carmen Kahn [facility] Start: 11-03-2021 End: 11-03-2021 ambulatory Carmen Kahn Other [employer] Other Start: 11-03-2021 Telephone encounter Carmen Kahn [facility] Start: 03-20-2020 End: 03-20-2020 Office outpatient visit 15 minutes Pastor Bedoya Work Phone: 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) Start: 03-20-2020 End: 03-20-2020 Subsequent hospital visit by physician zAul Rachel APRN-TUB WASHER Work Phone: [facility] Start: 06-13-2019 End: 06-14-2019 Patient encounter procedure GENE JONES Facility:[facility] Procedures Date Procedure Procedure Detail Performing Clinician Start: 01-03-2025 CRYOTHERAPY SKIN LESION Osman A Alyssa FOUNTAIN OPERATOR-TUB WASHER Work Phone: Start: 12-28-2024 End: 12-28-2024 Oph bmtry prtl coher intrfrmtry io lens pwr chhaya Jose R Dodd DO Work Phone: Start: 12-28-2024 Computerized ophthalmic imaging retina Jose R Dodd DO Work Phone: Start: 12-28-2024 End: 12-28-2024 [facility] medical xm&eval comprhnsv estab pt 1/> [...] 10-04-2024 SKIN / NAIL BIOPSY Osman Shah APRN-TUB WASHER Work Phone: Start: 09-07-2024 Computerized ophthalmic imaging retina Jose R Dodd DO Work Phone: Start: 09-07-2024 End: 09-07-2024 [facility] xm&eval intermediate estab pt 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 Jose R Dodd DO Work Phone: Comment on above: Advanced atrophic nonexudative age-relat ed macular degeneration of both eyes without subfoveal involvement (Primary Dx); Dry eyes; Age-related nuclear cataract of both eyes; Type 2 diabetes mellitus without complication, without long-term current use of insulin ([facility]) Start: 06-19-2024 End: 06-19-2024 CRYOTHERAPY SKIN LESION Osman Shah APRN-TUB WASHER Work Phone: Start: 06-08-2024 Computerized ophthalmic imaging retina Jose R Dodd DO Work Phone: Start: 06-08-2024 End: 06-08-2024 [facility]/> 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 [...] DO Work Phone: Start: 10-28-2023 End: 10-28-2023 [facility] Advanced atrophic nonexudative [...] Phone: Start: 03-15-2022 Prothrombin time Azul Rachel FOUNTAIN OPERATOR-TUB WASHER Work Phone: Start: 03-15-2022 Cultyp nuc acid amp prb cult/isolate ea marisela Rachel FOUNTAIN OPERATOR-TUB WASHER Work Phone: Start: 03-15-2022 Sars-cov-2 detection by dna/rna Azul ramirez FOUNTAIN OPERATOR-TUB WASHER Work Phone: Start: 03-15-2022 Antibody screen rbc each serum technique Pastor Bedoya MD Work Phone: Start: 03-15-2022 End: 03-15-2022 Thromboplastin time partial plasma/whole blood Azul Rachel FOUNTAIN OPERATOR-TUB WASHER Work Phone: Start: 01-10-2020 Renal lithotripsy Mc ALMONTE Start: 10-23-2019 Cystoscopic removal of ureteric stent Mc ALMONTE Start: 09-26-2019 Endoscopic retrograde cholangiopancreatography Mc ALMONTE Cholecystectomy [facility] Colonoscopy cM ALMONTE Depression screening Ramirez Metz Other Total knee replacement Ro ALMONTE Plan of Treatment Date Care Activity Detail Author Start: 07-04-2025 End: 07-04-2025 Patient encounter procedure 07/04/2025 9:10 AM EDT Office Visit [facility] [address] [place] [address] Osman Shah FOUNTAIN OPERATOR-TUB WASHER [address] [place] [address] [facility] Start: 02-26-2025 End: 02-26-2025 Patient encounter procedure 02/26/2025 10:15 AM EDT Office Visit [facility] [address] [place] [address] Jose R Dodd, DO [address] [place] [address] [facility] Start: 01-03-2025 End: 01-03-2025 Patient encounter procedure [facility] Comment on above: Arrived Start: 01-01-2025 End: 01-01-2025 Patient encounter procedure [facility] [place] Comment on above: Arrived Start: 12-28-2024 End: 12-28-2024 Patient encounter procedure [facility] Comment on above: Arrived Start: 10-30-2024 End: 10-30-2024 Patient encounter procedure [facility] [place] Comment on above: Arrived Start: 10-22-2024 End: 10-22-2024 [facility] Start: 10-17-2024 End: 10-17-2024 Patient encounter procedure [...] [address] [place] [id number] Osman Shah, FOUNTAIN OPERATOR-TUB WASHER [address] [place] [address] [facility] Start: 06-27-2024 End: 06-27-2024 Patient encounter procedure 06/27/2024 9:00 AM EDT Office Visit [facility] [address] [place] [address] Simran Muniz NP [address] [place] [address] Arrived [facility] Comment on above: Arrived Start: 06-19-2024 End: 06-19-2024 Patient encounter procedure 06/19/2024 9:25 AM EDT Office Visit [facility] [address] [place] [address] Osman Shah, FOUNTAIN OPERATOR-TUB WASHER [address] [place] [address] Arrived [facility] Comment on above: Arrived Start: 06-08-2024 End: 06-08-2024 Patient encounter procedure 06/08/2024 10:30 AM EDT Office Visit [facility] [address] [place] [phone] Jose R Dodd DO [address] [place] [address] Arrived [facility] Comment on above: Arrived Start: 05-27-2024 Influenza vaccination Influenza Vaccine (#1) [facility] Start: 02-24-2024 End: 02-24-2024 [facility] Start: 01-10-2024 End: 01-10-2024 Patient encounter procedure 01/10/2024 9:35 AM EDT Office Visit [facility] [address] [place] [address] Osman Shah, FOUNTAIN OPERATOR-TUB WASHER [address] [place] [address] [facility] Start: 10-28-2023 End: 10-28-2023 Patient encounter procedure 10/28/2023 9:30 AM EST Procedure Visit [facility] [address] [place] [phone] Jose R Dodd DO [address] [place] [address] Arrived [facility] Comment on above: Arrived Start: 05-27-2023 Influenza vaccination Influenza Vaccine (#1) [facility] Start: 03-16-2023 End: 03-16-2023 Patient encounter procedure 03/16/2023 Office Visit Orthopaedics Azul Rachel, FOUNTAIN OPERATOR-TUB WASHER [address] [place] [address] [facility] Start: 10-22-2022 COVID-19 VACCINE (6 - Pfizer series) COVID-19 VACCINE (6 - Pfizer series) [facility] Start: 08-21-2022 Hemoglobin A1c measurement HBA1C TEST [facility] Start: 07-08-2022 End: 07-08-2022 Patient encounter procedure 07/08/2022 Office Visit Orthopaedics Pastor Bedoya MD [address] [place] [address] [facility] Start: 05-27-2022 Influenza vaccination [facility] Start: 04-08-2022 End: 04-08-2022 Patient encounter procedure 04/08/2022 Office Visit Orthopaedics Azul Rachel, FOUNTAIN OPERATOR-TUB WASHER [address] [place] [address] [facility] Start: 02-18-2022 End: 02-18-2022 ambulatory 02/18/2022 Pre-Operative Nurse Assessment Internal Medicine [facility] Start: 05-27-2020 Influenza vaccination INFLUENZA VACCINE (Season Ended) [facility] Start: 12-25-2014 Pneumococcal vaccination PNEUMOCOCCAL VACCINE SERIES (2 - PCV) [facility] Start: 12-25-2014 Pneumococcal Vaccine: 65+ Years (2 - PCV) Pneumococcal Vaccine: 65+ Years (2 - PCV) [facility] Start: 12-25-2014 Pneumococcal Vaccine: 65+ Years (2 of 2 - PCV) Pneumococcal Vaccine: 65+ Years (2 of 2 - PCV) [facility] Start: 2011 Abdominal aortic aneurysm screening ABDOMINAL AORTIC ANEURYSM HIGH RISK SCREEN [facility] Start: 2011 Pneumococcal vaccination [facility] stem Start: 01-22-1996 Colonoscopy COLORECTAL CANCER SCREENING DISCUSSION [facility] Start: 01-22-1996 Prostate specific antigen measurement PROSTATE CANCER SCREENING DISCUSSION [facility] Start: 01-22-1996 Zoster vaccine hzv live for subcutaneous use ZOSTER (SHINGLES) VACCINE (1 of 2) [facility] Start: 1991 Colonoscopy COLORECTAL CANCER SCREENING DISCUSSION [facility] Start: 1991 Screening for malignant neoplasm of colon COLORECTAL CANCER SCREENING DISCUSSION [facility] Start: 1986 Fasting lipid profile LIPID SCREENING [facility] Start: 1965 Third diphtheria, tetanus and acellular pertussis (DTaP) vaccination TDAP (ADULT) [facility] Start: 01-22-1964 Tetanus vaccination TETANUS [facility] Start: 1951 COVID-19 VACCINE (#1) COVID-19 VACCINE (#1) [facility] tem Start: 1946 COVID-19 VACCINE (#1) COVID-19 VACCINE (#1) [facility] Start: 1946 Diabetic foot examination DIABETIC FOOT EXAM [facility] Start: 1946 Diabetic retinal eye exam EYE EXAM [facility] Start: 1946 Glaucoma screening EYE EXAM [facility] Start: 1946 Hepatitis B vaccination HEP B VACCINE (1 of 3 - 3-dose series) [facility] Start: 1946 Hepatitis C antibody, confirmatory test HEPATITIS C VIRUS SCREENING [facility] Start: 1946 Hepatitis C screening HEPATITIS C VIRUS SCREENING [facility] Start: 1946 Lipid panel LIPIDS [facility] Start: 1946 LIPIDS LIPIDS [facility] Start: 1946 Microalbumin measurement, urine, quantitative URINE MICROALBUMIN TEST [facility] Start: 1946 Potassium [Moles/Vol] POTASSIUM [facility] Start: 1946 Tetanus vaccination TETANUS [facility] Start: 1946 Urine screening for protein URINE MICROALBUMIN TEST [facility] Dermatopathology exam Dermatopat hology exam Pathology and Cytology Timed Neoplasm of unspecified behavior of bone, soft tissue, and skin Release Upon Ordering for 1 Occurrences starting 10/04/2024 [facility] Work Phone: Comment on above: Release Upon Ordering for 1 Occurrences starting 10/04/2024 Patient Education Know your Meds [facility] Work Phone: Patient referral [facility] Work Phone: Radiography for bone length studies XR BONE LENGTH STUDY Imaging Routine Hx of total knee arthroplasty, right 07/08/2022 11:01 AM EDT [employer] Work Phone: SURGICAL PATHOLOGY REQUEST SURGICAL PATHOLOGY REQUEST Surg Path Routine Osteoarthritis of right knee, unspecified osteoarthritis type Release Upon Ordering for 1 Occurrences starting 03/15/2022 [employer] Work Phone: Comment on above: Release Upon Ordering for 1 Occurrences starting 03/15/2022 X-ray of left knee XR KNEE LEFT 3 VIEWS Imaging Routine History of revision of total replacement of left knee joint 03/20/2020 10:48 AM EDT [employer] XR Knee - left 3 Views XR KNEE L EFT 3 VIEWS Imaging Routine Pain in prosthetic joint, sequela 2022 1:09 PM EDT [employer] XR Knee - right 3 Views XR KNEE RIGHT 3 VIEWS Imaging Routine Hx of total knee arthroplasty, right 04/08/2022 10:04 AM EDT [employer] [facility] XR Knee - right 3 Views XR KNEE RIGHT 3 VIEWS Imaging Routine Hx of total knee arthroplasty, right 07/08/2022 11:01 AM EDT [employer] [facility] XR Knee - right 3 Views XR KNEE RIGHT 3 VIEWS Imaging Routine Hx of total knee arthroplasty, right 03/16/2023 11:03 AM EDT [employer] [facility] XR Knee - right 4 Views XR KNEE RIGHT 4+ VIEWS Imaging Routine Right knee pain, unspecified chronicity 2022 12:51 PM EDT [employer] [facility] Immunizations Immunization Date Immunization Notes Care Provider Dunia burrell 08-21-2024 COVID-19 (PFIZER) 12Y and older Augustine Metz DO Work Phone: [facility] 07-09-2024 influenza, high dose seasonal, preservative-free [facility] 12-27-2023 COVID-19 (PFIZER) 12Y and older DO Augustine Metz Work Phone: [facility] 07-08-2023 influenza virus vaccine, unspecified formulation [facility] 07-08-2023 influenza, high dose seasonal, preservative-free Augustine Metz Other [facility] [employer] Other 06-21-2023 COVID-19 (PFIZER) 12Y and older DO Augustine Metz Work Phone: [facility] 03-03-2023 zoster vaccine recombinant Augustine Metz Other [facility] 01-01-2023 zoster vaccine recombinant Augustine Metz Other [facility] 06-29-2022 influenza, high dose seasonal, preservative-free Augustine Metz Other [facility] [employer] Other 06-29-2022 influenza virus vaccine, split virus (incl. purified surface antigen) Augustine Metz Other [facility] [employer] Other 06-29-2022 Influenza, Seasonal, Quadrivalent, Adjuvanted Jose Rtc Dodd DO Work Phone: [facility] 06-29-2022 influenza virus vaccine, unspecified formulation Jose R Verdeer DO Work Phone: [facility] 06-22-2022 COVID-19 Pfizer (bivalent) Augustine Metz Other [facility] 04-17-2022 COVID-19 Comirnaty (Pfizer) Tri-Sucrose 12+ DO Augustine Metz Work Phone: [facility] 07-15-2021 influenza virus vaccine, split virus (incl. purified surface antigen) Augustine Metz Other [facility] [employer] Other 07-15-2021 influenza virus vaccine, unspecified formulation [facility] 07-15-2021 Seasonal trivalent influenza vaccine, adjuvanted, preservative free Jose R Zahler DO Work Phone: [facility] 06-22-2021 COVID-19 Vaccine Pfi zer - Documentation Purposes Only Augustine Metz Other [facility] 11-20-2020 COVID-19 Vaccine Pfi zer - Documentation Purposes Only Augustine Metz Other [facility] 10-30-2020 COVID-19 Vaccine Pfi zer - Documentation Purposes Only Augustine Metz Other [facility] 07-09-2020 influenza, high dose seasonal, preservative-free Jose R Zahler DO Work Phone: [facility] 07-01-2020 influenza virus vaccine, split virus (incl. purified surface antigen) Augustine Metz Other [employer] Other 07-01-2020 influenza virus vaccine, unspecified formulation [facility] 07-06-2019 influenza virus vaccine, split virus (incl. purified surface antigen) Augustine Metz Other [employer] Other 07-06-2019 influenza virus vaccine, unspecified formulation [facility] 07-12-2018 influenza virus vaccine, split virus (incl. purified surface antigen) Augustine Metz Other [employer] Other 07-12-2018 influenza virus vaccine, unspecified formulation [facility] 07-12-2018 Seasonal trivalent influenza vaccine, adjuvanted, preservative free Jose R Zahler DO Work Phone: [facility] 07-25-2017 influenza virus vaccine, split virus (incl. purified surface antigen) Augustine Metz Other [employer] Other 07-25-2017 influenza virus vaccine, unspecified formulation [facility] 07-25-2017 influenza, high dose seasonal, preservative-free Jose R Zahler DO Work Phone: [facility] 07-07-2016 influenza virus vaccine, split virus (incl. purified surface antigen) Augustine Metz Other [facility] [employer] Other 07-07-2016 influenza virus vaccine, unspecified formulation [facility] 07-07-2016 influenza, high dose seasonal, preservative-free Jose R Verdeer DO Work Phone: [facility] 07-18-2015 pneumococcal conjuga te vaccine, 13 valent Augustine Metz Other [facility] 06-11-2015 influenza virus vaccine, split virus (incl. purified surface antigen) Augustine Metz Other [facility] [employer] Other 06-11-2015 influenza virus vaccine, unspecified formulation [facility] 05-27-2015 influenza, injectabl e, madin emilee canine kidney, preservative free Jose R Dodd DO Work Phone: [facility] 06-17-2014 tetanus and diphther ia toxoids, adsorbed, preservative free, for adult use (5 Lf of tetanus toxoid and 2 Lf of diphtheria toxoid) Augustine Metz Other [facility] 12-25-2013 pneumococcal polysaccharide vaccine, 23 valent Jose R Verdeer DO Work Phone: [facility] 08-28-2013 pneumococcal polysaccharide vaccine, 23 valent Augustine Metz Other [facility] 07-26-2013 tetanus and diphther ia toxoids, adsorbed, preservative free, for adult use (5 Lf of tetanus toxoid and 2 Lf of diphtheria toxoid) Augustine Mtez Other [facility] 07-18-2013 zoster vaccine, live Ramirez Metz Other [facility] 1946 pneumococcal conjuga te vaccine, 7 valent Damari Rojas [facility] Payers Date Payer Category Payer Self-pay [id number] 2022 Private Health Insurance [employer] [id number] 2017 Unknown [employer] M MO TRADITIONAL [id number] 2017-Present [id number]. [id number] 2010 Medicare MEDICARE MEDICAR E A AND B [id number] 2010-Present [place] [id number]. [id number] 2008 Medicare [id number]. 1.13.172.2. [id number] 2008 Unknown [id number]. 1.13.172.2. 7.3.059445.315 1959 Medicare [id number] 2.16.840.1.144116.19 1959 Unknown [id number] 1946 Unknown [id number] 2.16.840.1.336815.3.579.2. 647 1946 Unknown [id number] 2.16.840.1.421530.3.579.2. 356 1946 Unknown [id number] 2.16.840.1.769888.3.579.2. 356 1946 Unknown [id number] 2.16.840.1.257660.3.579.2. 159 1946 Unknown [id number] 2.16.840.1.973905.3.579.2. 159 1946 Unknown [id number] 2.16.840.1.047782.3.579.2. 159 1946 Unknown [id number] 2.16.840.1.122802.3.579.2. 159 1946 Unknown [id number] 2.16.840.1.699487.3.579.2. 159 1946 Unknown [id number] 2.16.840.1.939444.3.579.2. 593 1946 Unknown [id number] 2.16.840.1.505267.3.579.2. 593 1946 Unknown [id number] 2.16.840.1.646573.3.579.2. 593 1946 Unknown [id number] 2.16.840.1.308202.3.579.2. 593 1946 Unknown [id number] 2.16.840.1.286619.3.579.2. 593 1946 Unknown [id number] 2.16.840.1.095505.3.579.2. 593 1946 Unknown [id number] 2.16.840.1.937122.3.579.2. 593 1946 Unknown [id number] 2.16.840.1.346252.3.579.2. 593 1946 Unknown [id number] 2.16.840.1.276348.3.579.2. 593 1946 Unknown [id number] 2.16.840.1.349085.3.579.2. 593 1946 Unknown [id number] 2.16.840.1.926808.3.579.2. 593 1946 Unknown [id number] 2.16.840.1.914290.3.579.2. 593 1946 Unknown [id number] 2.16.840.1.247835.3.579.2. 593 1946 Unknown [id number] 2.16.840.1.337057.3.579.2. 593 1946 Unknown [id number] 2.16.840.1.684333.3.579.2. 593 1946 Unknown [id number] 2.16.840.1.576003.3.579.2. 593 1946 Unknown [id number] 2.16.840.1.563301.3.579.2. 593 1946 Unknown [id number] 2.16840.1.253359.3.579.2. 593 1946 Unknown [id number] 2.16.840.1.418301.3.579.2. 593 1946 Unknown [id number] 2.16.840.1.527303.3.579.2. 593 1946 Unknown [id number] 2.16.840.1.096500.3.579.2. 983 1946 Unknown [id number] 2.16840.1.133041.3.579.2. 983 1946 Unknown [id number] 2.16.840.1.994183.3.579.2. 983 1946 Unknown [id number] 2.16.840.1.258557.3.579.2. 983 1946 Unknown [id number] 2.16.840.1.464275.3.579.2. 983 1946 Unknown [id number] 2.16.840.1.052567.3.579.2. 983 1946 Unknown [id number] 2.16.840.1.527288.3.579.2. 718 1946 Unknown [id number] 2.16.840.1.533498.3.579.2. 1258 1946 Unknown [id number] 2.16.840.1.984841.3.579.2. 1258 1946 Unknown [id number] 2.16.840.1.691956.3.579.2. 1258 1946 Unknown [id number] 2.16.840.1.954159.3.579.2. 1258 1946 Unknown [id number] 2.16840.1.538349.3.579.2. 1258 1946 Unknown [id number] 2.840.1.306016.3.579.2. 1258 1946 Unknown [id number] 2.840.1.304227.3.579.2. 1258 1946 Unknown [id number] 2.840.1.269205.3.579.2. 1258 1946 Unknown [id number] 2.16.840.1.230892.3.579.2. 1258 1946 Unknown [id number] 2.840.1.648601.3.579.2. 1258 1946 Unknown [id number] 2.16840.1.368617.3.579.2. 1258 1946 Unknown [id number] 2.16.840.1.125449.3.579.2. 1258 1946 Unknown [id number] 2.16.840.1.773672.3.579.2. 1258 1946 Unknown [id number] 2.16.840.1.384412.3.579.2. 1258 1946 Unknown [id number] 2.16.840.1.568973.3.579.2. 1259 1946 Unknown [id number] 2.16.840.1.119651.3.579.2. 1259 1946 Unknown [id number] 2.16.840.1.501661.3.579.2. 1259 1946 Unknown [id number] 2.16.840.1.840282.3.579.2. 125 1946 Unknown [id number] 2.16.840.1.441211.3.579.2. 1259 1946 Unknown [id number] 2.16.840.1.285236.3.579.2. 1259 Medicare [id number] Unknown [facility] [id number] Unknown [id number] 2.16.840.1.070442.3.579.2. 531 Unknown [id number] 2.16.840.1.399915.3.579.2. 531 Unknown [id number] Unknown [id number] Social History Date Type Detail Facility Start: 03-20-2020 End: 10-22-2024 Tobacco smoking status [facility] Former smoker [employer] End: 02-08-1983 History of tobacco use Current smoker [employer] Start: 03-20-2020 End: 07-08-2022 Tobacco use and exposure Former user [employer] End: 02-08-2003 History of tobacco use User of smokeless tobacco [employer] Start: 03-20-2020 End: 03-16-2023 Alcohol intake Current non-drinker of alcohol (finding) [employer] Start: 1945 Sex Assigned At Not on file A [facility] Start: 03-05-2022 End: 03-15-2022 Exposure to SARS-CoV-2 (event) Not sure [facility] Start: 03-16-2023 End: 01-03-2025 Sex Assigned At [facility] [employer] Other Start: 05-03-2022 End: 12-16-2023 Tobacco smoking status Never smoked tobacco (finding) [facility] End: 02-08-1983 History of tobacco use Cigarette Smoker [facility] Start: 09-14-2022 Dept. of D ermatology Start: 1945 Sex Assigned At Male [facility] Start: 03-16-2023 End: 01-03-2025 History of Social function [facility] Gender identity Identifies as ma le gender (finding) [facility] Start: 08-29-2023 End: 01-03-2025 Alcohol intake Lifetime non-drinker (finding) [facility] Start: 06-23-2023 Alcohol Comment caffeine: soda [facility] Start: 10-10-2024 End: 01-09-2025 Sex Male (finding) [facility] Procedure Code Equipment Code Equipment [...] 12-16-2023 End: 12-16-2023 Blood Sugar Diagnostic (Accu-Chek Pracih Plus Test Strp) strip Start: 12-19-2023 Blood [...] 05-03-2022 Functional Status N/A [facility] Clinical Notes 11-04-2021 to 01-03-2025 Osman Shah, DEQUAN-TUB WASHER - 01/03/2025 9:20 AM Chalo Dodd, DO [...] performed by Macario Bui MD Location: Right buddhist Established patient Patient denies loss of appetite, [...] History of malignant melanoma of skin Right [place] No evidence of recurrence at melanoma scar. [...] limited to risks of scarring, darker or grapple skidder operator pigmentary changes, recurrence, incomplete removal and infection. [...] months skin exam documented in this encounter [facility] 12-28-2024 Note Right Eye Quality was poor. Scan locations included subfoveal. Progression has been stable. Findings include abnormal foveal contour. Left Eye Quality was good. Scan locations included subfoveal. Progression has been stable. Findings include abnormal foveal contour. Notes Macular volume loss both eyes (OU). [facility] 12-28-2024 History of Presen t illness Narrative [...] Medications (Ophthalmic Agents) Medication Sig Dispense Refill Hqmhldyiomm-Vgmschji-Nythmiymx 1-0.5-0.075 % solution Administer 1 drop into [...] Daily gabapentin (Neurontin) 300 MG capsule HYDROcodone-acetaminophen (Felicity) 7.5-325 MG tablet levETIRAcetam (Keppra) 500 MG [...] pain 07/11/2024 COVID-19 vaccine administered x 2 ([employer]) Diabetes (CMS/HCC) Diverticulosis of colon 10/17/2012 Family history of malignant neoplasm of skin 02/15/2024 Family history of malignant neoplasm of skin 09/06/2023 Gastroesophageal reflux disease without esophagitis 03/15/2022 GERD (gastroesophageal reflux disease) Glaucoma 09/06/2023 Glycosuria 02/15/2024 Glycosuria 09/06/2023 HTN (hypertension) ([facility]) Hypercholesteremia ([facility] Hyperlipidemia ([facility] Hypertension ([facility]) Hypertensive disorder ([facility]) 06/10/2014 Macular degeneration Malignant neoplasm of skin 10/17/2012 Melanoma ([facility]) Melanoma in situ of face ([facility]) 02/15/2024 Mitral valve disorder 09/17/2013 MILD (ECHO 05/09) Obstructive sleep apnea syndrome 09/17/2013 Paroxysmal atrial fibrillation ([facility]) 09/17/2013 PAF; CHADS2 SCORE 2 (HTN, DM). ON COUMADIN. 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 01/28/2024 Stage 3a chronic kidney disease (HCC) ([facility]) 03/15/2022 Subdural hematoma ([facility]) 2023 Type 2 diabetes mellitus without complication, [...] Normal Normal Refraction Final Rx Sphere Cylinder [place] Add Right +2.25 -1.25 085 [...] different lens options were explained including the ecz-is-uqegkc fees for any upgrades. Intraocular lens (IOL) [...] vision or metamorphopsia. documented in this encounter [facility] 11-03-2024 History of Presen t illness Narrative [...] back as needed documented in this encounter [facility] 11-03-2024 History of Presen t illness Narrative [...] back as needed documented in this encounter [facility] 10-30-2024 History of Presen t illness Narrative [...] given wound instructions. He is leaving for [place] for the remainder of the winter. I will see him on a returns in December documented in this encounter [facility] 10-17-2024 History of Presen t illness Narrative [...] cell carcinoma (BCC) of left preauricular region [facility] 10/21/2022 Chest pain 07/11/2024 COVID-19 vaccine administered x 2 ([employer]) Diabetes ([facility]/HCC) Diverticulosis of colon 10/17/2012 Family history of malignant neoplasm of skin 02/15/2024 Family history of malignant neoplasm of skin 09/06/2023 Gastroesophageal reflux disease without esophagitis 03/15/2022 GERD (gastroesophageal reflux disease) Glaucoma (CMS/HCC) 09/06/2023 Glycosuria 02/15/2024 Glycosuria 09/06/2023 HTN (hypertension) (CMS/HCC) Hypercholesteremia (CMS/HCC) Hyperlipidemia ([facility]) Hypertension ([facility]) Hypertensive disorder ([facility]) 06/10/2014 Macular degeneration Malignant neoplasm of skin 10/17/2012 Melanoma ([facility]) Melanoma in situ of face ([facility]) 02/15/2024 Mitral valve disorder 09/17/2013 MILD (ECHO 8/14) Obstructive sleep apnea syndrome 09/17/2013 Paroxysmal atrial fibrillation ([facility]) 09/17/2013 PAF; CHADS2 SCORE 2 (HTN, DM). ON COUMADIN. 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 01/28/2024 Stage 3a chronic kidney disease (HCC) ([facility]) 03/15/2022 Subdural hematoma ([facility]) 2023 Type 2 diabetes mellitus without complication, without long-term current use of insulin ([facility]) 10/17/2012 Current Outpatient Medications: acetaminophen (Tylenol) 500 [...] MG capsule, , Disp: , Rfl: HYDROcodone-acetaminophen (Felicity) 7.5-325 MG tablet, , Disp: , Rfl: [...] ERCP x2 FINGER AMPUTATION Left ring finger [place] ARTHROSCOPY KNEE DIAGNOSTIC W/WO SYNOVIAL BX SPX [...] Strain: Low Risk (01/24/2024) Received from [facility], [facility] Overall Financial Resource Strain (CARDIA) Difficulty of Paying Living Expenses: Not hard at all Food Insecurity: No Food Insecurity (01/24/2024) Received from [facility], [facility] Hunger Vital Sign Within the past 12 months, you worried that your food would run out before you got the money to buy more.: Never true Ran Out of Food in the Last Year: Not on file Transportation Needs: No Transportation Needs (01/24/2024) Received from [facility], [facility] Transportation In the past 12 months, has lack of transportation kept you from medical appointments or from getting medications?: No Lack of Transportation (Non-Medical): Not on file Physical Activity: Not on file Stress: Not on file Social Connections: Not on file Intimate Partner Violence: Unknown (01/24/2024) Received from [facility], [facility] Humiliation, Afraid, Rape, and Kick questionnaire Fear of Current or Ex-Partner: No Emotionally Abused: Not on file Physically Abused: Not on file Sexually Abused: Not on file Housing Stability: Low Risk (01/24/2024) Received from [facility], [facility] Housing Stability Vital Sign Unable to Pay for Housing in the Last Year: Not on file Number of Places Lived in the Last Year: Not on file In the last 12 months, was there a time when you did not have a steady place to sleep or slept in a fci (including now)?: No Subjective Patient ID: [id number] [...] consented to proceed. documented in this encounter [facility] 10-16-2024 History of Presen t illness Narrative [...] meds, nerve injury, and recurrence were addressed.) [place]if[place] Protocol: Procedure explained and questions answered to [...] sodium bicarbonate Procedure Details: Biopsy accession number: [id number] Biopsy lab: [facility] Date of biopsy: 10/04/2024 Frozen section biopsy [...] surgery? Yes When were antibiotics given? post-operative [facility] Post Operative Type of repair: Referred for [...] Next visit: 01/03/2025 documented in this encounter [facility] 10-03-2024 History of Presen t illness Narrative [...] of Klonopin and will be leaving for [place] in October and not coming back until December. He would like to get a 90 day to cover the time he is gone. 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 [facility] 10/21/2022 COVID-19 vaccine administered x 2 ([employer]) Diabetes (CMS/HCC) Diverticulosis of colon 10/17/2012 Family history of malignant neoplasm of skin 02/15/2024 Family history of malignant neoplasm of skin 09/06/2023 Gastroesophageal reflux disease without esophagitis 03/15/2022 GERD (gastroesophageal reflux disease) Glaucoma (CMS/HCC) 09/06/2023 Glycosuria 02/15/2024 Glycosuria 09/06/2023 HTN (hypertension) ([facility]) Hypercholesteremia ([facility]/HCC) Hyperlipidemia ([facility]/HCC[facility] Hypertension ([facility]/HCC) Hypertensive disorder ([facility]) 06/10/2014 Macular degeneration Malignant neoplasm of skin 10/17/2012 Melanoma ([facility] Melanoma in situ of face ([facility]) 02/15/2024 Mitral valve disorder 09/17/2013 MILD (ECHO 8/14) Obstructive sleep apnea syndrome 09/17/2013 Paroxysmal atrial fibrillation ([facility]) 09/17/2013 PAF; CHADS2 SCORE 2 (HTN, DM). ON COUMADIN. 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 01/28/2024 Stage 3a chronic kidney disease (HCC) ([facility]) 03/15/2022 Subdural hematoma ([facility]) 2023 Type 2 diabetes mellitus without complication, without long-term current use of insulin ([facility]) 10/17/2012 Past Surgical History: Procedure Laterality Date CARDIOVERSION CHOLECYSTECTOMY 2012 COLONOSCOPY 2010 ERCP x2 FINGER AMPUTATION Left ring finger [place] ARTHROSCOPY KNEE DIAGNOSTIC W/WO SYNOVIAL BX SPX [...] was counseled on the risks of stroke, [place], and sudden with CUBA, along with the [...] clinic: 3 months documented in this encounter [facility] 09-07-2024 Note Right Eye Quality was good. Scan locations included subfoveal. Progression has been stable. Findings include abnormal foveal contour, subretinal scarring. Left Eye Quality was good. Scan locations included subfoveal. Progression has been stable. Findings include abnormal foveal contour. Notes Macular Volume Loss both eyes (OU) [facility] 09-07-2024 History of Presen t illness Narrative [...] now given soon to be trip to [place] as well as side effects from last treatment in August. He was provided an Amsler grid to check daily and note any changes to this. He understands to get ahold of his retina specialist in [place] if there was a change. Will see [...] tears were recommended. documented in this encounter [facility] 08-21-2024 Evaluation note Diagnosis Onset Date Resolution [...] with hyperglycemia acute October 10, 2024 8:18am [facility] Work Phone: 1(266) 996-329411-26-2024 Evaluation note* Diagnosis Onset Date Resolution Status [...] wit h hyperglycemia acute October 10 8:18am [facility] Work Phone: 1(368) 204-512010-16-2024 NoteUT Cardiology - [facility] Chief Complaint: Thought he had [...] In April 2019 he presented to the [facility] with atrial fibrillation with controlled ventricular [...] not ill-appearing. HENT: [place] (more content not included)...[facility]09-24-2024 History of Present illness Narrative* Osman Shah, FOUNTAIN OPERATOR-TUB WASHER - 10/04/2024 2:40 PM EST Images from [...] Next Visit: as scheduled documented [facility] [id number] History of Present illness Narrative* EDYTA Spence [...] performed by Macario Bui MD Location: Right buddhist Established patient Lesions: Location: Nose Duration: Two [...] limited to risks of scarring, darker or grapple skidder operator pigmentary changes, recurrence, incomplete removal and infection. [...] 7. Seborrheic keratosis, inflamed Dorsum of Nose [place] and brown stuck on verrucous scaly papule [...] limited to risks of scarring, darker or grapple skidder operator pigmentary changes, recurrence, incomplete removal and infection. [...] History of malignant melanoma of skin Right [place] No evidence of recurrence at melanoma scar. [...] 6 months, skin check documented in this encounterNorth[facility] [id number] NoteRight Eye Quality was good. Scan locations included subfoveal. Progression has been stable. Findings include abnormal foveal contour. Left Eye Quality was good. Scan locations included subfoveal. Progression has been stable. Findings include abnormal foveal contour. Notes Macular Volume Loss both eyes (OU). [facility] [id number] History of Present illness Narrative* Jose R [...] now given soon to be trip to [place] as well as side effects from last treatment in August. He was provided an [place] grid to check daily and note any changes to this. He understands to get ahold of his retina specialist in [place] if there was a change. Will see [...] artificial tears were recommended. documented in this encounterNorthwest Medical [id number] NoteUT Cardiology - [facility] Chief Complaint: Thought he had [...] In April 2019 he presented to the [facility] with atrial fibrillation with controlled ventricular [...] regular rhythm. Pulses: Radial (more content not included)...[facility] 03-22-2024 NoteUT Cardiology - [facility] Subjective Tito Goncalves is a [...] In April 2019 he presented to the [facility] with atrial fibrillation with controlled ventricular [...] Judgment normal. Allergies [place] (more content not included)...[facility]06-21-2024 NotePatient: Tito Goncalves Procedure Information Date/Time: 03/16/24 1030 Procedure: TRANSESOPHAGEAL ECHO (JESSICA) Location: [facility] Vascular Lab Clinical information reviewed: Allergies Meds Physical Exam Airway Mallampati: II TM distance: >3 FB Neck ROM: full Cardiovascular Rhythm: regular Rate: normal Dental Pulmonary Abdominal Anesthesia Plan ASA 3 other (Conscious sedation.) Anesthetic plan and risks discussed with patient. Use of blood products discussed with patient who consented to blood products. Additional [facility] Note Patient here for follow up LAAO and pericardial effusion. Still denies chest pain, SOB, palpitations, and lightheadedness/syncope. Doing very well. Review of Systems Constitutional: Positive for malaise/fatigue. Cardiovascular: Positive for leg swelling (resolves by morning). Hematologic/Lymphatic: Bruises/bleeds easily. Musculoskeletal: Positive for arthritis, back pain and myalgias. All other systems reviewed and are negative.[facility] 02-09-2024 NoteCardiovascular Medicine [facility] SUBJECTIVE Chief Complaint Patient presents with [...] Left lower leg: Naman (more content not included)...[facility]05-05-2024 NotePatient discharged with family. Patient provided copy of AVS and discharge instructions. All questions and concerns addressed. All belongings with patient [facility]05-05-2024 NoteHospital Medicine Discharge Summary Final Discharge Diagnosis: [...] In April 2019 he presented to the [facility] with atrial fibrillation with controlled ventricular [...] switched propafenon to amiodarone. - Not on group home AC due to hx of falls and [...] 9:40 AM Madison Paul NP TIMO [facility] 03/16/2024 10:30 AM [facility] EVP GENERAL COUNSEL HOLDING ROOM [facility] VASC LAB PA Heart[facility]AS Your medication list START taking these [...] Medications These medications were sent to [facility] - [address] [place] [address] [address] [facility] [place] [address], [facility] [address] amiodarone 200 mg tablet clopidogrel 75 mg tablet Tito is allergic to iodine, penicillins, shellfish containing products, and sulfa (sulfonamide antibiotics). Disposition: Home-Health Care [facility] () Discharge Condition: Stable Code Status: Full [...] and oriented x3. Cardiology: (more content not included)...[facility] 01-29-2024 NoteCardiology Progress Note Subjective Subjective: No [...] no acute distress. HEAD: Atraumatic, normocephalic. EYES: ARKI, EOMI. NECK: No JVD present. CARDIAC: RRR. No murmur, rubs, or gallops. RESPIRATORY: CTAB, no increased effort of breathing. ABDOMEN: Soft, nontender, nondistended. EXTREMITIES: No lower extremity edema, peripheral pulses are 2+ bilaterally. NEURO: No focal deficits Relevant Lab Results Encounter Date: 01/24/24 ECG 12 lead Result Value Ventricular Rate 124 QRS DURATION 86 QT Interval 316 QTC CALCULATION(BAZETT) 453 R-[place] 8 T Wave [place] 100 Impression Atrial fibrillation with rapid ventricular [...] (TTE) limited Result Date: 01/27/2024 1 1 [facility] Heart Station [address] [place] [address] [phone] (fax) Echocardiogram-[facility] Name: TITO GONCALVES Study Date: 01/27/2024 08:18 AM B/P: 147 mmHg/62 mmHg HR: 67 bpm Date of : 1945 Location: [facility] Height: 72 in. Age: 79 [...] fibrinous material noted. Procedure Staff Reading Group: [facility] Pattern Clerk: MARLEY Donohue, RDCS Ordering Physician: LIONEL MENA Transthoracic echo (TTE) limited Result Date: 01/26/2024 1 1 [facility] Heart Station [address] [place] [address] [phone] (fax) Echocardiogram-[facility] Name: TITO GONCALVES Study Date: 01/26/2024 07:59 AM B/P: 129 mmHg/74 mmHg HR: Date of : 1945 Location: [facility] Height: 72 in. Age: 79 [...] left atrium appears e (more content not included)...[facility]05-04-2024 Note Cardiology Progress Note Subjective Subjective: No [...] 86 QT Interval 316 QTC CALCULATION(BAZETT) 453 R[place] 8 T [address] [place] 100 Impression Atrial fibrillation with rapid ventricular [...] (TTE) limited Result Date: 01/27/2024 1 1 [facility] Heart Station [address] [place] [address] [phone] (fax) Echocardiogram-[facility] Name: TITO GONCALVES Study Date: 01/27/2024 08:18 AM B/P: 147 mmHg/62 mmHg HR: 67 bpm Date of : 1945 Location: [facility] Height: 72 in. Age: 79 [...] fibrinous material noted. Procedure Staff Reading Group: [facility] Pattern Clerk: MARLEY Donohue, RDCS Ordering Physician: LIONEL MENA Transthoracic echo (TTE) limited Result Date: 01/26/2024 1 1 [facility] Heart Station [address] [place] [address] [phone] (fax) Echocardiogram-[facility] Name: TITO GONCALVES Study Date: 01/26/2024 07:59 AM B/P: 129 mmHg/74 mmHg HR: Date of : 1945 Location: [facility] Height: 72 in. Age: 79 [...] in size. Right ventr (more content not included)...[facility]05-04-2024 Note Physical Therapy Physical Therapy Evaluation & Treatment Patient Name: Tito Goncalves : 1945 Today's Date: 01/28/2024 Time in: 1:53 pm Time out: 2:20 pm Total time: 27 minutes 01/28/24 1422 PT Last Visit PT Received On 01/28/24 General Subjective Both RN and pt agreeable to PT this afternoon. Pt denies pain and asleep upon group underwriter entering room however easily awakens. Cognition Overall Cognitive Status WFL Arousal/Alertness Appropriate responses to stimuli Orientation Level Oriented X4 Following Commands Follows all commands and directions without difficulty Communication Intact Cognition Comments pt had difficulty navigating back to correct room after first bout of ambulation however after 2nd bout able to navigate back to room without external cues from group underwriter. Therapeutic Exercise Therapeutic Exercise Time Entry [...] tray table within reach. PT Assessment PT Assessment/FREELANCE PHOTOGRAPHER Summary Pt continues to progress towards goals [...] stable vital signs throughout session 01/27/24 02/10/24 --[facility] 01-28-2024 [facility] Daily Progress Note - 01/28/2024 11:20 AM; Room: [address] [place] [address] Admission: 01/24/2024 10:46 AM; Length of stay: 4 days THE HOSPITALIST TEAM PREFERS TO USE e[employer] CHAT FOR COMMUNICATION 7AM-7PM. IF I DO NOT RESPOND WITHIN 15 MINUTES, PLEASE PAGE ME/CALL THROUGH THE LEADING FIREFIGHTER. FROM 7PM-7AM, PLEASE PAGE [phone](COVR) Code Status: Full Code Barriers to Discharge: [...] complication and patient was admitted to the [facility] for over night monitoring to be [...] (Active) Date First Assessed/Time First Assessed: 01/25/24 9938 Hand Hygiene Completed: Yes Primary Wound Type: [...] 40 mg, oral, Daily (more content not included)...[facility]05-03-2024 Note Attestation signed by Srinath Joseph MD [...] Progress Note - 01/27/2024 12:46 PM; Room: [facility]7/3167-01 Admission: 01/24/2024 10:46 AM; Length of stay: 3 days THE HOSPITALIST TEAM PREFERS TO USE [employer] CHAT FOR COMMUNICATION 7AM-7PM. IF I DO NOT RESPOND WITHIN 15 MINUTES, PLEASE PAGE ME/CALL THROUGH THE LEADING FIREFIGHTER. FROM 7PM-7AM, PLEASE PAGE [phone](COVR) Code Status: Full Code Barriers to Discharge: [...] Principal Problem: Paroxysmal atrial fibrillation ([facility]) Active Problems: Pericardial effusion Assessment and [...] mg, oral, Nightly ami (more content not included)...[facility]05-03-2024 NoteUTP CARDIOLOGY INPATIENT PROGRESS NOTE Reason for [...] 1 mg/min, Last Rate: 1 mg/min (01/27/24 4305) PRN medications: benzonatate, glucose OR dextrose 50 [...] 86 QT Interval 316 QTC CALCULATION(BAZETT) 453 R-[place] 8 T Wave [place] 100 Impression Atrial fibrillation with rapid ventricular [...] systolic function is normal. (more content not included)...[facility]05-03-2024 Note Attestation signed by Jay Benitez PT at 01/27/2024 11:18 AM This group underwriter (PT) provided one-on-one supervision, direction of [...] ECHO showed pericardial effusion, pt went to microbiology lab technician for pericardiocentesis and currently has a pericardial [...] 3a chronic kidney disease (CMS/HCC) Subdural hematoma ([facility]/HCC) Type 2 diabetes mellitus without complication, [...] Level of Function Prior Function Level of [place]: Independent with ADLs and functional transfers, Independent [...] device, No upper extremity (more content not included)...[facility]05-03-2024 NoteOccupational Therapy Occupational Therapy Evaluation Patient Name: [...] Level of Function Prior Function Level of [place]: Independent with ADLs and functional transfers, Independent [...] Eating meals?: None (Independent) Total Score OT [facility]: 21 Assessment/Plan OT Assessment OT Impairments: [...] 5 times per wee (more content not included)...[facility]05-02-2024 Note Attestation signed by Lionel Mena MD [...] 79 y.[facility]. - 1945 [id number] Date of Admission - 01/24/2024 10:46 AM [...] Patient in limited echocar (more content not included)...[facility]05-02-2024 Note Attestation signed by Zoran Daniel MD [...] Value Ventricular Rate 52 Atrial Rate 52 [place] Interval 184 QRS DURATION 84 QT Interval 424 QTC CALCULATION(BAZETT) 394 P [place] 79 R-[place] 51 T Wave [place] 76 Impression Sinus bradycardia Nonspecific T wave abnormality Abnormal ECG (more content not included)...[facility]05-02-2024 Note 01/26/24 1243 Admission Assessment Questions Verify insurance with patient Yes Do you understand medical disease or what brought you into the hospital? Yes Who is your current PCP? Dr Metz in [place] Can I schedule a follow up appointment for you at the time of discharge? Yes Do you understand why you are taking your current medications? Yes Are you taking your medications as prescribed? Yes Did patient provide teach back? Yes Would you like use our pharmacy iMeds to fill your new medications at the time of Discharge? No Does the patient have a child support case officer assigned to them through their insurance? No [...] able to send link and activate MyChart? [facility]05-01-2024 Note Attestation signed by Zoran Daniel MD [...] -- -- 01/25/24 0 (more content not included)...[facility] 01-25-2024 NotePatient: Tito R Kaple Procedure Information Date/Time: 01/25/241799 Procedure: Pericardiocentesis Location: [facility]SEL 3 / [facility] (Cath) Providers: Oliver Crane [...] products. Plan discussed with attending. Additional [facility]-01-2024 Note CLINICAL INFORMATION: Ground level fall, recurrent [...] in this report. Electronically signed: Trenton Martinez. 6[facility]05-01-2024 NoteResponded to rr Hypotension fall Pt seen [...] ordered d/w cardiology pt to move to [facility]04-30-2024 NotePharmacy Dosing Service - Vancomycin Initial Consult Note Pharmacy has been consulted for the dosing and evaluation of Drug: Vancomycin Indication: surgical prophylaxis Other Antimicrobial Regimens: None Labs and Renal Function Total body weight: 112 kg (248 lb) [place] body weight: 77.6 kg (171 lb 1.2 [...] is afebrile and hemodynamically stable. Presenting to [facility] for closure of left atrial [...] or questions Thank you, Rose Tomas, PharmD, 01/24/24[facility]04[facility]30[facility] Note Patient: Tito Goncalves Procedure Information Date/Time: 01/24/24 1300 Procedure: Left atrial appendage closure (transvenous) - ADRIENNE WILL CALL Location: [facility] 3 / [facility] (Cath) Providers: Oliver Crane MD Clinical information reviewed: Allergies Meds Physical Exam Airway Mallampati: II TM distance: >3 FB Neck ROM: full Cardiovascular Rhythm: regular Rate: normal Dental Pulmonary Abdominal Anesthesia Plan ASA 3 other (Conscious sedation.) Anesthetic plan and risks discussed with patient. Use of blood products discussed with patient who consented to blood products. Additional Equipment [facility]sAv[facility]04-17-2024 Note Amna Sousa CNP - patient's daughter- called with questions about her dad's upcoming LAAO procedure. She said you had given her instructions for him previously regarding coumadin, but she cannot find it. Can you please call her cell phone when you get a chance? [phone] If you need me to do anything, please let me know. Thanks! :)[facility]02-05-2024 Evaluation note* Encounter Date Diagnosis Assessment Notes [...] are maintaining regular scheduled appts with their ballistics tester. Scheduled for LAAO procedure but postponed until spring. Fall precautions. Oct, Obstructive sleep apnea (ICD-10 - G47.33) Auto CPAP 10-15, Facial Mask This patient is aware of the benefits associated with CUBA: With continued use, the patient reduces the risk for WV, CVA, HTN, cardiac dysrhythmias and sudden cardiac [...] Exercise w/ goal of 10% weight loss [facility] Other 02-02-2024 NoteRight Eye Quality was good. Scan locations included subfoveal. Progression has been stable. Findings include abnormal foveal contour, disciform scar. Left Eye Quality was good. Scan locations included subfoveal. Progression has been stable. Findings include normal observations.[facility] CenterEqnmejrqqn25-19-4811 History of Present illness Narrative* Jose R [...] now given soon to be trip to [place] as well as side effects from last treatment in August. He was provided an Amsler grid to check daily and note any changes to this. He understands to get ahold of his retina specialist in [place] if there was a change. Will see [...] artificial tears were recommended. documented in this encounterNorthwest Medical [id number] [facility] Note Chief Complaint: Patient [...] PSYCH: appropriate mood, affect, and judgement. Transesophageal Echocardiogram-[facility] Name: TITO GONCALVES Study Date: 09/16/2023 09:38 AM B/P: 136 mmHg/70 mmHg HR: Date of : 1945 Location: [facility] Height: 72 in. Age: 78 year(s) Patient Room : [facility] Weight: 246 lb. Gender: Male Patient Status: OutPt BSA: 2.33 m2 Indication: Atrial Fibrillation, Pre LAAO closure Examination: JESSICA/Limited Doppler/CFI, Agitated Saline, 3D images Image Quality: Good Patient Consent: Informed, written consent was obtained for the procedure s p @ c 3 Exam Location: A JESSICA was performed in the Tax Form Preparer without complications s p @ c 3 [...] should problems arise Maggy Murphy MD, MPH, [facility], [facility], [facility] Interventional Cardiology Pager Email: [email or web address]12-12-2023 NoteUT Cardiology - [facility] Subjective Tito Goncalves is a 78 y.o. year old male patient being seen to discuss LAAO. He presented to [facility] ED in Jun 2023 for fall. He is anticoagulated with warfarin for afib. Back in December 2022 he had brain bleed s/p fall. Was treated at [facility]. He denies chest pain, SOB, and [...] In April 2019 he presented to the [facility] with atrial fibrillation with controlled ventricular [...] Take 1 tablet (more content not included)... [facility]06-21-2023 History of Present illness Narrative* Shannen Tirso - 03/16/2023 11:20 AM EDT Ortho Nurse - Established Patient Intake Room#: 5 Date: 03/16/2023 11:20 AM Patient: Tito Goncalves MR#: [id number] : 1945 Age: 78 y.o. 1yr R [...] allergy, and sulfa antibiotics. * Azul Rachel APRN-TUB WASHER - 03/16/2023 11:20 AM EDT HPI: Patient [...] have reviewed the findings of the clinical learning support resource room teacher and agree with their assessment. Ortho Nurse - Established Patient Intake Room#: 5 Date: 03/16/2023 11:20 AM Patient: Tito Goncalves MR#: [id number] : 1945 Age: 78 y.o. 1yr R [...] sulfa antibiotics. documented in this [facility]04-29-2023 Evaluation note* Encounter Date Diagnosis Assessment Notes Treatment Notes Treatment Clinical Notes Dec, Subarachnoid hemorrhage (ICD-10 - I60.9) [employer] Other 04-12-2023 Evaluation note* Encounter Date Diagnosis [...] are maintaining regular scheduled appts with their ballistics tester. Dec, Obstructive sleep apnea (ICD-10 - G47.33) Auto CPAP 07-10, Facial Mask This patient is aware of the benefits associated with CUBA: With continued use, the patient reduces the risk for WV, CVA, HTN, cardiac dysrhythmias and sudden cardiac [...] and weight loss. Improved control of BS [employer] Other 02-15-2023 Evaluation note* Encounter Date Diagnosis Assessment Notes Treatment Notes Treatment Clinical Notes Oct, Cholecystitis (ICD-1 0 - K81.9) [facility] Other 02-14-[address] [facility] FOLLOW UP CARE ? [...] physician?s office at: THANK YOU FOR CHOOSING [facility] FOR YOUR PROCEDURE! [phone] This information is not intended to replace advice given to you by your health care provider. Make sure you discuss any questions you have with your health care provider. ExitCare? Patient Information ?2016 [employer]. Custom Education added 09/2018[facility]02-14-2023 NoteNursing Discharge Summary Entered On: 11/09/2022 [...] : Daughter Sariah Schreiber RN 11/09/2022 8:43 [facility]01-09-2023 Evaluation note* Encounter Date Diagnosis Assessment [...] use, the patient reduces the risk for WV, CVA, HTN, cardiac dysrhythmias and sudden cardiac [...] INR being monitored, no bleeding complications noted [facility] Other 10-13-2022 History of Present illness Narrative* Luis Wang LPN - 07/08/2022 11:20 AM EDT Ortho Nurse - Established Patient Intake Room#: 2 4 month Right TKA, some pain of 1-2 when weed eating, going great Date: 07/08/2022 11:51 AM Patient: Tito Goncalves MR#: [id number] : 1945 Age: 77 y.o. Referring Physician: [...] have reviewed the findings of the clinical learning support resource room teacher and agree with their assessment. Ortho Nurse - Established Patient Intake Room#: 2 4 month Right TKA, some pain of 1-2 when weed eating, going great Date: 07/08/2022 11:51 AM Patient: Tito Goncalves MR#: [id number] : 1945 Age: 77 y.o. Referring Physician: [...] allergy, and sulfa antibiotics. documented in this encounterAdena [facility] System08-08-2022 Hospital Discharge instructions Patient Education 05/03/2022 08:55:03 [...] urethra. Follow these instructions at home: Take dizt-gtx-cvzjijd and prescription medicines only as told by [...] 09/12/2006 Document Revised: 08/07/2019 Document Reviewed: 10/17/2017 [employer] Patient Education 2020 Yo. Follow Up Care 04/27/2021 11:05:10 With:GAGE UMANZOR, Mc Blackman, URL Address: [facility] [address] , [place] [address]- [phone] When: Unknown Comments:KIM [facility] [place] 07-14-2022 History of Present illness Narrative* Shannen Chahal - 04/08/2022 10:00 AM EDT Ortho Nurse - Established Patient Intake Room#: 5 Date: 04/08/2022 9:50 AM Patient: Tito Goncalves MR#: [id number] : 1945 Age: 77 y.o. 3wk S/P [...] allergy, and sulfa antibiotics. * Azul Rachel APRN-TUB WASHER - 04/08/2022 10:00 AM EDT HPI: Tito [...] roller. All pertinent portions of the clinical learning support resource room teacher documentation was reviewed and agree. EDYTA Ayala I have reviewed the findings of the clinical learning support resource room teacher and agree with their assessment. EDYTA Ayala Ortho Nurse - Established Patient Intake Room#: 5 Date: 04/08/2022 9:50 AM Patient: Tito Goncalves MR#: [id number] : 1945 Age: 77 y.o. 3wk S/P [...] sulfa antibiotics. documented in this [facility]06-21-2022 Miscellaneous Notes* Nursing Notes - Kirsten Crawford [...] RN - 02/18/2022 1:25 PM EDT 02/18/22 8380 Information Source Information Source patient Contact Information Parker Name Gini Medrano RN Case Manager's Living [...] that he plans to return home with [facility]. The patient states that his daughter [...] assist with discharge plans. documented in this [facility]06-21-2022 Note* Nursing Notes - Kirsten Crawford RN - 03/16/2022 3:01 PM EDT Discharge instructions gone over with pt and pt's daughter at this time by Regina GAVIN. Both, verbalize understanding and deny any further questions. Hemovac drain removed at this time, tip intact upon removal, pt tolerated well. [facility]06-21-20[facility] History of Present illness Narrative* Blanca Peck, FREELANCE PHOTOGRAPHER - 03/16/2022 2:21 PM EDT 03/16/22 1421 [...] Transfer Skill: Sit To Stand, Rehab Eval [place] (Sit-Stand Transfers) (mod I) Physical Assist/Nonphysical Assist: Sit/Stand 1 person assist Weight-Bearing Restrictions: Sit/Stand weight-bearing as tolerated Assistive Device For Transfer: Sit/Stand armed chair Gait Skills, PT Eval Level of [place]: Gait (mod I) Weight-Bearing Restrictions: Gait weight-bearing as tolerated Assistive Device For Transfer: Gait 2 wheeled walker Gait Distance (600ft; patient demonstrates a good quality heel - toe pattern consistently throughtout treatment) Stair Negotiation [place] Level: Stair Negotiation supervision Physical Assist: Stair [...] 100mg 4.00 Total $ 20.60 Birgit Henriquez (Haul Truck Driver) reviewed medications with patient regarding indications, directions [...] Sit to Stand, Rehab Eval Level of [place]: Sit/Stand contact guard Physical Assist/Nonphysical Assist: Sit/Stand 1 person assist Weight-Bearing Restrictions: Sit/Stand weight-bearing as tolerated Assistive Device for Transfer: Sit/Stand wheeled walker;armed chair Transfer Skill: Stand to Sit, Rehab Eval Level of [place]: Stand/Sit contact guard Physical Assist/Nonphysical Assist: Stand/Sit [...] Eval) ADL retraining;balance training;transfer training PRIOR LEVEL AM-[facility] Activity Inpatient Short Form Putting on/Taking Off [...] Prior Functional Impairment in Daily Activity [facility]RENT [facility] Daily Activity Inpatient Short Form Putting on/Taking Off Lower Body Clothing 3 - A Little Assistance Bathing 3 - A Little Assistance Toileting 3 - A Little Assistance Putting on/Taking Off Upper Body Clothing 3 - A Little Assistance Grooming 3 - A Little Assistance Eating 4 - No Assistance CURRENT AM-[facility] Activity Raw Score 19 CURRENT AM-[facility] Activity Functional Limitation/Modifier 42.80% Currently Impaired in [...] initiation of treatment Therapist Information License # [id number] In addition to above, ambulated with CGA [...] 2.5-3.5 MECHANICAL VALVE RANGE Testing performed at [place], [place] [address] - ALBUMIN Date Value Ref Range Status 03/16/2022 3.3 (L) 3.5 - 5.0 G/dl Final - Plan: An order was placed for Coumadin 7.5 mg today x 1 based on INR = 1.37. A Pharmacist will continue to follow and make dose changes as clinically appropriate. Please contact pharmacy if there are any questions. Signed: Pato Gutierrez Pharmacist Phone: [phone] Date/Time: 03/16/2022 11:46 AM * Yashira Corbinraissa, [...] 3/5) LLE WFL Supine to Sit Mobility [place] Level: Supine->Sit stand-by assist Physical Assist: Supine->Sit (1 person) Bed Features/Set-up: Supine->Sit Head of bed elevated Skilled Rationale Verbal cues;Sequencing Sit to Stand Transfer [place] Level: Sit->Stand stand-by assist Physical Assist: Sit->Stand (1 person) Assistive Device: Sit->Stand 2 wheeled walker;gait belt Skilled Rationale Verbal cues;Hand placement;Sequencing Stand to Sit Transfer [place] Level: Stand->Sit stand-by assist Physical Assist: Stand->Sit (1 person) Assistive Device: Stand->Sit 2 wheeled walker;gait belt Skilled Rationale Verbal cues;Hand placement;Sequencing;Controlled descent for sitting Sitting Balance Static Sitting-Level of Assistance Independent Standing Balance Static Standing-Level of Assistance Stand-by assist Dynamic Standing-Level of Assistance Stand-by assist Standing-Balance Support 2 wheeled walker;Gait belt Skilled Rationale Verbal cues;Full extension to upright positioning/posture;Upright gaze/neck extension Gait Assessment [place] Level: Gait contact guard assist Physical Assist: [...] (248 lb) 02/08/18 117.9 kg (260 lb) [place] body weight: 77.6 kg (171 lb 1.9 [...] plan. Patient plans to return home with [facility]. His daughter will be staying with [...] Warfarin and PT/INR management. Questions answered regarding [facility], patient denies any other questions or needs at this time. Referral information with orders for PT/INR faxed to [facility], spoke with staff who confirm start of care for tomorrow. Follow up appointment scheduled for 04/08/22 @ 10:00 am. * Grupo Morgan [facility],PharmD - 03/15/2022 6:24 PM EDT Pharmacy to Dose - Warfarin Note PATIENT: Tito Goncalves [place] [facility] [place] [facility] [place] Desired INR range: 2-3 Indication(s): Atrial Fibrillation Last labs: INR Date Value Ref Range Status 03/15/2022 1.36 (H) 0.85 - 1.10 Final Comment: 2.0-3.0 THERAPEUTIC RANGE 2.5-3.5 MECHANICAL VALVE RANGE Testing performed at [place], [place] [address] - ALBUMIN Date Value Ref Range Status 02/18/2022 3.8 3.5 - 5.0 G/dl Final - Plan: An order was placed for 5 mg based on current Home Dosage. A Pharmacist will continue to follow and make dose changes as clinically appropriate. Please contact pharmacy if there are any questions. Signed: Grupo Morgan RPh,PharmD, Pharmacist Phone: [phone] Date/Time: 03/15/2022 6:24 PM * Samantha Miner [...] you require anything further documented in this encounterAdena Health System06-21-2022 Note* Nursing Notes - Dian Roberts RN [...] anxious to head home and settle in. [facility]06-21-2022 Hospital Discharge instructions* Discharge Instructions* Kirsten Crawford [...] days or until therapeutic with results to [place] [facility]. , Contact Office ([phone]) if: > Total Knee ROM < 90 [...] sent through Care Everywhere. * docusate (oral/rectal) (American) * oxycodone (American) documented in this [facility]06-21-2022 Note* Plan of Care - [...] discharge/transition of care. Outcome: Adequate for Discharge [facility]06-21-2022 Note* Nursing Notes - Kirsten Crawford RN - 03/16/2022 11:39 AM EDT Assessment unchanged from previous by this nurse unless otherwise noted in flowsheet T [facility]06-21-2022 Hospital course Narrative* Domenico Ferguson MD - 03/16/2022 8:54 AM EDT Images from the original note were not included. Discharge Summary Name: Tito Goncalves Age: 77 y.o. Birthday: 1945 Admit Date: 03/15/2022 8:10 AM Discharge Date: 03/16/2022 Discharge Time: 03/16/2022 Discharge Unit: [facility] Rehab unit Unit Length of Stay: [...] insulin restless leg. Kidney stones, admitted to [facility] for elective rig ht total knee [...] as: COUMADIN STOP taking these medications Glucosamine-Chondroitin 1030-9781 MG/30ML LIQD Follow-up: No follow-up provider specified. Upcoming Appointments (up to five)-Some appointments for Medical Center outpatient clinics or diagnostic testing locations are not displayed below Provider Department Dept Phone 04/08/2022 10:00 AM [facility] [phone] Total coordination of discharge care taking greater that 35 minutes documented in this [facility]06-21-2022 Note* Plan of Care - Birgit Thakur [...] Devices: pillows Note: IVÁN Ramirez, Foot pumps [facility]06-21-2022 Note* Nursing Notes - Birgit Thakur RN - 03/16/2022 3:09 AM EDT Assessment remains unchanged unless otherwise noted in flow sheet. Pt denies pain. Neuro/pulses unchanged. New bag of NS hung at this time. Vitals WDL. Pt denies any needs and call light is in reach. [facility]06-20-2022 Note* Nursing Notes - Birgit Thakur RN - 03/15/2022 11:59 PM EDT Assessment remains unchanged unless otherwise noted in flow sheet. Pt denies any pain. Neuro/pulsesunchanged. NS infusing @ 100ml/hr and Ancef administered. Pt denies any needs and call light is in reach. [facility]06-20-2022 Note* Nursing Notes - Birgit Thakur RN - 03/15/2022 8:06 PM EDT RT called at this time due to O2 change from 1.5 to 1L. Pt also has home CPAP/BIPAP device. RT made[place]. [facility]06-20-2022 Note* Nursing Notes - Araseli Ron RN - 03/15/2022 5:53 PM EDT Patient tolerating clear liquids at this time, diet advanced per orders. [facility]06-20-2022 Consult note* Domenico Ferguson MD - 03/15/2022 4:10 PM EDT History and Physical Examination 03/15/22 4:10 PM Chief Complaint: Right total knee arthroplasty History of Present Illness: Patient is a 77 y.o. male presents for [facility] for elective right total knee [...] mg by mouth daily. Historical Provider Glucosamine-Chondroitin 8380-8090 MG/30ML Liquid Take by mouth. Historical Provider [...] 81 mg by mouth daily. 03/04/2022 Glucosamine-Chondroitin 0259-0863 MG/30ML Liquid Take by mouth. Multiple Vitamins-Minerals [...] OT, ST and SW. Domenico Ferguson MD [facility]06-20-2022 Consult note* Domenico Ferguson MD - 03/15/2022 4:10 PM EDT History and Physical Examination 03/15/22 4:10 PM Chief Complaint: Right total knee arthroplasty History of Present Illness: Patient is a 77 y.o. male presents for [facility] for elective right total knee [...] mg by mouth daily. Historical Provider Glucosamine-Chondroitin 5752-6957 MG/30ML Liquid Take by mouth. Historical Provider [...] 81 mg by mouth daily. 03/04/2022 Glucosamine-Chondroitin 0920-1931 MG/30ML Liquid Take by mouth. Multiple Vitamins-Minerals [...] SW. Domenico Ferguson MD [facility]* Nursing Notes - Araseli Ron RN - 03/15/2022 2:26 PM EDT Patient to OR at this time. [facility]* Nursing Notes - Araseli Ron RN - 03/15/2022 11:57 AM EDT Patient assessment unchanged from previous. Patient ambulated to bathroom and voided. Patient denies any needs at this time. Call light in reach. [facility]05-26-[facility] Note* Nursing Notes - Gini Medrano RN - 02/18/2022 1:25 PM EDT 02/18/22 1324 Information Source Information Source patient Contact Information Parker Name Gini Medrano RN Case Manager's Living [...] that he plans to return [facility]. The patient states that his daughter [...] to follow and assist with discharge plans. [facility]04-[facility] History of Present illness Narrative* Luis Wang, BEVERLY - 2022 1:10 PM EDT Ortho Nurse - Established Patient Intake Room#: 1 Right knee pain of 9, no interventions, falls, or injuries, came in today with left knee pain, left knee revision 2016 Dr Bedoya Date: 2022 1:06 PM Patient: Tito Goncalves MR#: [id number] : 1945 Age: 77 y.o. Referring Physician: [...] right total knee arthroplasty for optimal terminal gauger supervisor management. PHYSICAL EXAM: This is an [...] joint space, subchondral sclerosis, osteophyte formation, and [id number]-ij-[id number] contact with posterior loosebodies. He has a [...] nasal MRSA screening, scheduling an appointment for [facility] and the potential surgical date, and reviewing [...] Swelling Sulfa Antibiotics Swelling documented [id number] Evaluation note* Encounter Date Diagnosis Assessment Notes Treatment Notes Treatment Clinical Notes Oct, Choledocholithiasis (ICD-10 - K80.50) Oct, Pancreatic cyst (ICD -10 - K86.2) [employer] Other Evaluation + Plan note No data available for this section [facility] evaluation note* Diagnosis Right knee pain, unspecified chronicity- Primary Pain in prosthetic joint, sequela [facility] Diagnosis Preop testing- Primary Preoperative [...] Hyposmolality and/or hyponatremia documented in [facility] [employer] Other Evaluation note* Diagnosis Hx of total knee arthroplasty, right- Primary [facility] [place] [facility]* Diagnosis Hx of total knee arthroplasty, right- Primary documented in this [facility] [place] noteN/ADept. of Dermatology Evaluation note* Diagnosis Hx of total knee arthroplasty, right- Primary documented in this [facility] [place] [facility]* Diagnosis 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- Primary Age-related nuclear cataract of both eyes Dry eyes Unspecified tear film insufficiency [facility] Onset Date Resolution Status Atrial fibrillation acute Chronic kidney disease acute GERD (gastroesophageal reflux disease) acute Hemopericardium acute Hypercholesterolemia acute Hypertension acute CUBA (obstructive sleep apnea) acute [facility] Work Phone: Evaluation note* Diagnosis Onset Date Resolution Status Atrial fibrillation acute Chronic kidney disease acute Hemopericardium acute Hypertension acute Obesity acute CUBA (obstructive sleep apnea) acute Cellulitis of right upper extremity noneactive [facility] Work Phone: evaluation note* Diagnosis Onset Date Resolution Status Atrial fibrillation acute Chronic kidney disease acute Hemopericardium acute Hypertension acute Obesity acute CUBA (obstructive sleep apnea) acute Cellulitis of right upper extremity noneactive Atrial fibrillation acute Chronic kidney disease acute Hypertension acute Obesity acute CUBA (obstructive sleep apnea) acute Type 2 diabetes mellitus with hyperglycemia acute [facility] Work Phone: Evaluation note* Diagnosis Onset Date [...] Type 2 diabetes mellitus with hyperglycemia acute [facility] Work Phone: evaluation note* Diagnosis Onset Date [...] diabetes mellitus with hyperglycemia acute COVID noneactive [facility] Work Phone: Evaluation note* Diagnosis Onset Date Resolution Status Anemia acute Atrial fibrillation acute Chest pain acute Chronic kidney disease acute Hypertension acute CUBA (obstructive sleep apnea) acute Type 2 diabetes mellitus with hyperglycemia acute Hypertension acute Type 2 diabetes mellitus with hyperglycemia acute COVID noneactive Abrasion of ear canal acute [facility] Work Phone: Evaluation note* Diagnosis PLMD (periodic limb movement disorder)- Primary Periodic limb movement disorder CUBA (obstructive sleep apnea) Obstructive sleep apnea (adult) (pediatric) Daytime hypersomnolence Primary insomnia Persistent disorder of initiating or maintaining sleep Snoring Other dyspnea and respiratory abnormality documented in this encounter [facility] HealthcareEvaluation note* Diagnosis Onset Date Resolution Status Hypertension acute Type 2 diabetes mellitus with hyperglycemia acute COVID noneactive Abrasion of ear canal acute Atrial fibrillation acute Chronic kidney disease acute Hypertension acute Obesity acute CUBA (obstructive sleep apnea) acute Type 2 diabetes mellitus with hyperglycemia acute [facility] Work Phone: Evaluation note* Diagnosis 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- Primary Age-related nuclear cataract of both eyes Dry eyes Unspecified tear film insufficiency documented in this encounter [facility] HealthcareEvaluation note* Diagnosis 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- Primary Dry eyes Unspecified tear film insufficiency Age-related nuclear cataract of both eyes Type 2 diabetes mellitus without complication, without long-term current use of insulin ([facility]) documented in this encounter [facility] HealthcareEvaluation note* Diagnosis Seborrheic keratosis Melanocytic nevus of trunk Benign neoplasm of skin of trunk, except scrotum Lentigines Capillary angioma Nevus, non-neoplastic Telangiectasia of face Actinic keratosis Seborrheic keratosis, inflamed History of malignant melanoma of skin Personal history of malignant melanoma of skin documented in this encounter [facility] HealthcareEvaluation note* Diagnosis CUBA (obstructive [...] h hyperglycemia acute January 09, 2025 9:37am [facility] Work Phone: History general Narrative - Reported* Type Description Date Medical History hyperlipidemia Medical History GERD Medical History HTN Medical History a.fib Medical History recurrent choledocholithiasis Surgical History LEFT KNEE Surgical History CHOLECYSTECTOMY 2012 Hospitalization History see above [employer] Other [facility] general Narrative - Reported* Type Description Date [...] stone removal 10/2022 Hospitalization History see above [facility] Other [facility] general Narrative - Reported* Type Description Date [...] stone removal 10/2022 Hospitalization History see above [employer] Other History general Narrative - Reported* Type [...] History Colonoscopy 2020 Hospitalization History see above [facility] Other Hospital Discharge instructions Additional Instructions 1. Sleep on 2 pillows 2. You may shower late tomorrow afternoon, keep wounds dry and clean 3. Small amount of Vaseline to sutures twice daily 4. Tylenol or Motrin for discomfort 5. See Dr. Freitas in 1 [facility] Work Phone: Hospital Discharge instructions Additional Instructions sleep on 2 pillows ok to shower tomorrow am, keep wound dry and clean small amount of vasaline to sutures [address] Freitas in 1 [facility] Work Phone: Progress note No data available for this section [facility] reason for referral (narrative)* Name Reason for referral NA NA Dept. of Dermatology Reason for visit Narrative* Auth/Cert Specialty Diagnoses / Procedures Referred By Contac t Referred To Contact Diagnoses Osteoarthritis of right knee, unspecified osteoarthritis type Osteoarthritis of right knee, unspecified osteoarthritis type [M17.11] Procedures [place] TOTAL KNEE ARTHROPLASTY ARTHROPLASTY KNEE TOTAL Pastor Bedoya MD [address] [place] [address] Referral ID Status Reason Start Date Expiration Date Visits Re quested Visits Authorized [id number] 02/01/2022 1 1 [employer] Summary Purpose Family History Relationship Condition Age [...] XR KNEE LEFT 3 VIEWS Azul Rachel, FOUNTAIN OPERATOR-TUB WASHER [address] [place] [address] Specialty Diagnoses / Procedures Referred By Contac t Referred To Contact Diagnoses Pain in prosthetic joint, sequela Procedures XR KNEE LEFT 3 VIEWS Pastor Bedoya MD [address] [place] [phone] Referral ID Status Reason Start Date Expiration Date V isits Requested Visits Authorized [id number] New Request 2022 02/15/2023 1 1 Specialty Diagnoses / Procedures Referred By Contac t Referred To Contact Diagnoses Right knee pain, unspecified chronicity Procedures XR KNEE RIGHT 4+ VIEWS Pastor Bedoya MD [address] [place] [address] Referral ID Status Reason Start Date Expiration Date V isits Requested Visits Authorized [id number] New Request 01/15/2022 02/09/2023 1 1 Specialty Diagnoses / Procedures Referred By Contac t Referred To Contact Social Work Diagnoses Restless leg syndrome Stage 3a chronic kidney disease S/P total knee arthroplasty, right Paroxysmal atrial fibrillation Type 2 diabetes mellitus without complication, without long-term current use of insulin Domenico Ferguson MD [address] [place] [phone] Referral ID Status Reason Start Date Expiration Date V isits Requested Visits Authorized [id number] New Request 03/16/2022 04/10/2023 1 1 Specialty Diagnoses / Procedures Referred By Contac t Referred To Contact Diagnoses Acute postoperative pain of right knee Samantha Miner [address] [place] [address] Referral ID Status Reason Start Date Expiration Date V isits Requested Visits Authorized [id number] New Request 03/15/2022 04/09/2023 1 1 Scheduling Instructions . Specialty Diagnoses / Procedures Referred By Contac t Referred To Contact Physical Therapy Diagnoses Hx of total knee arthroplasty, right VirginieAzul, FOUNTAIN OPERATOR-TUB WASHER [address] [place] [address] [facility] Physical Therapy [address] [place] [address] Referral ID Status Reason Start Date Expiration Date V isits Requested Visits Authorized [id number] New Request 04/08/2022 05/03/2023 1 1 Specialty Diagnoses / Procedures Referred By Contac t Referred To Contact Diagnoses Hx of total knee arthroplasty, right Procedures XR KNEE RIGHT 3 VIEWS VirginieAzul ramirez, FOUNTAIN OPERATOR-TUB WASHER [address] [place] [address] Referral ID Status Reason Start Date Expiration Date V isits Requested Visits Authorized [id number] New Request 03/31/2022 04/25/2023 1 1 Specialty Diagnoses / Procedures Referred By Contac t Referred To Contact Diagnoses Hx of total knee arthroplasty, right Procedures XR KNEE RIGHT 3 VIEWS Pastor Bedoya MD [address] [place] [address] Referral ID Status Reason Start Date Expiration Date V isits Requested Visits Authorized [id number] New Request 07/02/2022 07/27/2023 1 1 Specialty Diagnoses / Procedures Referred By Contac t Referred To Contact Diagnoses Hx of total knee arthroplasty, right Procedures XR BONE LENGTH STUDY Pastor Bedoya MD [address] [place] [address] Referral ID Status Reason Start Date Expiration Date V isits Requested Visits Authorized [id number] New Request 07/02/2022 07/27/2023 1 1 Referral ID Status Reason Start Date Expiration Date V isits Requested Visits Authorized [id number] New Request 03/15/2023 04/08/2024 1 1 History [...] have reviewed the findings of the clinical learning support resource room teacher and agree with their assessment. Ortho Nurse Established Patient Intake Room#: 5 Date: 03/20/2020 11:10 AM Patient: Tito Goncalves MR#: [id number] : 1945 Age: 75 y.o. 3 yr [...] 03/20/2020 11:10 AM Patient: Tito Goncalves MR#: [id number] : 1945 Age: 75 y.o. 3 yr [...] fibrillation Chronic kidney disease Hemopericardium Hypertension Obesity UCBA (obstructive sleep apnea) Cellulitis of right upper extremity Atrial fibrillation Chronic kidney disease Hypertension Obesity CUBA (obstructive sleep apnea) Type 2 diabetes mellitus with hyperglycemia Anemia Atrial fibrillation Chest pain Chronic kidney disease Hypertension CUBA (obstructive sleep apnea) Type 2 diabetes mellitus with hyperglycemia Chief Complaint scalp wound scalp wound 4 month follow up [facility] follow up, chest pain [phone] sinus problems Reason for Visit Atrial fibrillation Chronic kidney disease Hypertension Obesity CUBA (obstructive sleep apnea) Type 2 diabetes mellitus with hyperglycemia Anemia Atrial fibrillation Chest pain Chronic kidney disease Hypertension CUBA (obstructive sleep apnea) Type 2 diabetes mellitus with hyperglycemia Hypertension Type 2 diabetes mellitus with hyperglycemia COVID Chief Complaint [facility] follow up, chest pain [phone] sinus problems Rt ear pain Reason for Visit Anemia Atrial fibrillation Chest pain Chronic kidney disease Hypertension CUBA (obstructive sleep apnea) Type 2 diabetes mellitus with hyperglycemia Hypertension Type 2 diabetes mellitus with hyperglycemia COVID Abrasion of ear canal Chief Complaint [phone] sinus p roblems Rt ear pain wellness [...] 8:18am Type 2 diabetes mellitus with hyperglyce [facility] October 10, 2024 8:18am [...] section and content) DATE CREATED AUTHOR 03/21/2018 [facility] DATE CREATED AUTHOR AUTHOR'S ORGANIZ ATION 06/15/2019 [facility] DATE CREATED AUTHOR AUTHOR'S ORGANIZ ATION 03/25/2022 [facility] DATE CREATED AUTHOR AUTHOR'S ORGANIZ ATION 05/04/2022 [facility] DATE CREATED AUTHOR AUTHOR'S ORGANIZ ATION 10/04/2022 [facility] DATE CREATED AUTHOR AUTHOR'S ORGANIZ ATION 02/02/2023 [facility] DATE CREATED AUTHOR AUTHOR'S ORGANIZ ATION 03/05/2023 [facility] DATE CREATED AUTHOR AUTHOR'S ORGANIZ ATION 03/20/2023 [facility] DATE CREATED AUTHOR AUTHOR'S ORGANIZ ATION 07/12/2023 [facility] DATE CREATED AUTHOR AUTHOR'S ORGANIZ ATION 07/13/2024 [facility] DATE CREATED AUTHOR AUTHOR'S ORGANIZ ATION 11/04/2024 [facility] DATE CREATED AUTHOR AUTHOR'S ORGANIZ ATION 01/04/2025 [facility] d[facility] Specialists EPIC Reason for Visit (unrecogniz ed section and content) Reason Comments Follow-up Status Reason Specialty Diagnoses / Procedures Referred By Contact Referred To Contact New Request Diagnoses History of revision of total replacement of left knee joint Procedures XR KNEE LEFT 3 VIEWS Azul Rachel, FOUNTAIN OPERATOR-TUB WASHER [address] [place] [address] Reason Comments Pain Specialty Diagnoses / Procedures Referred By Contac t Referred To Contact Diagnoses Pain in prosthetic joint, sequela Procedures XR KNEE LEFT 3 VIEWS Pastor Bedoya MD [address] [place] [address] Referral ID Status Reason Start Date Expiration Date V isits Requested Visits Authorized [id number] New Request 2022 02/15/2023 1 1 Specialty Diagnoses / Procedures Referred By Contac t Referred To Contact Diagnoses Right knee pain, unspecified chronicity Procedures XR KNEE RIGHT 4+ VIEWS Pastor Bedoya MD [address] [place] [address] Referral ID Status Reason Start Date Expiration Date V isits Requested Visits Authorized [id number] New Request 01/15/2022 02/09/2023 1 1 Specialty Diagnoses / Procedures Referred By Contac t Referred To Contact Diagnoses Hx of total knee arthroplasty, right Procedures XR KNEE RIGHT 3 VIEWS Azul Rachel, FOUNTAIN OPERATOR-TUB WASHER [address] [place] [address] Referral ID Status Reason Start Date Expiration Date V isits Requested Visits Authorized [id number] New Request 03/31/2022 04/25/2023 1 1 Reason Comments Post Op Visit Specialty Diagnoses / Procedures Referred By Bret t Referred To Contact Diagnoses Hx of total knee arthroplasty, right Procedures XR KNEE RIGHT 3 VIEWS Pastor Bedoya MD [address] [facility] [place] [address] Referral ID Status Reason Start Date Expiration Date V isits Requested Visits Authorized [id number] New Request 07/02/2022 07/27/2023 1 1 Referral ID Status Reason Start Date Expiration Date V isits Requested Visits Authorized [id number] New Request 03/15/2023 04/08/2024 1 1 Reason [...] End: June 04, 2024 Blanca Lay APRN SMOKE AND FLAME SPECIALIST-C Attending Provider Active Start: May End: [...] February 27, 2024 End: February 27, 2024 Chef Assistant Relationship Specialty Start Date End Date Augustine Metz DO [address] [place] [id number] PCP - General Internal Medicine 01/24/17 Chef Assistant Relationship Specialty Start Date End Date Augustine MetzDO [address] [place] [address] PCP - General Internal Medicine 01/24/17 Chef Assistant Relationship Specialty Start Date End Date Augustine Metz, DO [address] [place] [facility] [address] PCP - General Internal Medicine 01/24/17 Chef Assistant Relationship Specialty Start Date End Date Augustine Metz, DO [address] [place] [facility] [address] PCP - General Internal Medicine 01/24/17 Chef Assistant Relationship Specialty Start Date End Date Augustine Metz, DO [address] [place] [facility] [place] [address] PCP - General Internal Medicine 01/24/17 Chef Assistant Relationship Specialty Start Date End Date Augustine Metz, DO [address] [place] [facility] [place] [address] PCP - General Internal Medicine 01/24/17 Chef Assistant Relationship Specialty Start Date End Date Augustine Metz, DO [address] [place] [facility] [address] PCP - General Internal Medicine 01/24/17 Chef Assistant Relationship Specialty Start Date End Date Augustine Metz DO [address] [place] [facility] [address] PCP - General Internal Medicine 01/24/17 Chef Assistant Relationship Specialty Start Date End Date Augustine Metz DO [address] [place] [facility] [address] PCP - General Internal Medicine 01/24/17 Chef Assistant Relationship Specialty Start Date End Date Augustine Metz MD [address] [place] [address] PCP - General Internal Medicine 06/02/23 Chef Assistant Relationship Specialty Start Date End Date Augustine Metz MD [address] [place] [address] PCP - General Internal Medicine 06/02/23 Team [...] January 31, 2024 End: January 31, 2024 Chef Assistant Relationship Specialty Start Date End Date Augustine Metz MD [address] [place] [address] PCP - General Internal Medicine 06/02/23 Christin Bolton MD [address] [place] [address] Referring Physician Dermatology 02/15/24 Augustine Freitas DO [address] [place] [address] Otolaryngology 02/15/24 Chef Assistant Relationship Specialty Start Date End Date Augustine Metz MD [address] [place] [address] PCP - General Internal Medicine 06/02/23 Christin Bolton MD [address] [place] [address] Referring Physician Dermatology 02/15/24 Augustine Freitas DO [address] [place] [place] [address] Otolaryngology 02/15/24 Team Status: Active Member Role Status Dates Augustine Metz DO Primary Care Provide r, Attending Provider Active Start: June 27, 2024 Team Status: Inactive Member Role Status Dates Augustine Metz DO Primary Care Provide r, Attending Provider Active Start: July 09, 2024 End: July 09, 2024 Chef Assistant Relationship Specialty Start Date End Date Augustine Metz MD PCP - General Internal Medicine 06/02/23 Christin Bolton MD [address] [facility] [address] [place] [address] Referring Physician Dermatology 02/15/24 Augustine Freitas DO [address] [place] [address] Otolaryngology 02/15/24 Chef Assistant Relationship Specialty Start Date End Date Augustine Metz MD PCP - General Internal Medicine 06/02/23 Christin Bolton MD [address] [facility] [address] [place] [address] Referring Physician Dermatology 02/15/24 Augustine Freitas DO [address] [place] [address] Otolaryngology 02/15/24 Chef Assistant Relationship Specialty Start Date End Date Augustine Metz MD [address] [place] [address] PCP - General Internal Medicine 06/02/23 Christin Bolton MD [address] [place] [address] Referring Physician Dermatology 02/15/24 Augustine Freitas DO [address] [place] [address] Otolaryngology 02/15/24 Chef Assistant Relationship Specialty Start Date End Date Augustine Metz MD [address] [place] [address] PCP - General Internal Medicine 06/02/23 Christin Bolton MD [address] [place] [address] Referring Physician Dermatology 02/15/24 Augustine Freitas DO [address] [place] [address] Otolaryngology 02/15/24 Chef Assistant Relationship Specialty Start Date End Date Augustine Metz MD [address] [place] [address] PCP - General Internal Medicine 06/02/23 Christin Bolton MD [address] [place] [address] Referring Physician Dermatology 02/15/24 Augustine Freitas DO [address] [place] [address] Otolaryngology 02/15/24 Chef Assistant Relationship Specialty Start Date End Date Augustine Metz MD [address] [place] [address] PCP - General Internal Medicine 06/02/23 Christin Bolton MD [address] [place] [address] Referring Physician Dermatology 02/15/24 Augustine Freitas DO [address] [place] [address] Otolaryngology 02/15/24 Chef Assistant Relationship Specialty Start Date End Date Augustine eMtz MD [address] [place] [address] PCP - General Internal Medicine 06/02/23 Christin Bolton MD [address] [place] [address] Referring Physician Dermatology 02/15/24 Augustine Freitas, [address] [place] [address] Otolaryngology 02/15/24 Chef Assistant Relationship Specialty Start Date End Date Augustine Metz MD [address] [place] [address] PCP - General Internal Medicine 06/02/23 Christin Bolton MD [address] [place] [address] Referring Physician Dermatology 02/15/24 Augustine Freitas DO [address] [place] [address] Otolaryngology 02/15/24 Chef Assistant Relationship Specialty Start Date End Date Augustine Metz MD [address] [place] [address] PCP - General Internal Medicine 06/02/23 Christin Bolton MD [address] [place] [address] Referring Physician Dermatology 02/15/24 Augustine Freitas DO [address] [place] [address] Otolaryngology 02/15/24 Chef Assistant Relationship Specialty Start Date End Date Augustine Metz MD [address] [place] [address] PCP - General Internal Medicine 06/02/23 Christin Bolton MD [address] [facility] [address] [place] [address] Referring Physician Dermatology 02/15/24 Augustine Freitas DO [address] [place] [address] Otolaryngology 02/15/24 Team Status: Active Member Role [...] October 10, 2024 End: October 10, 2024 Chef Assistant Relationship Specialty Start Date End Date Augustine Metz MD [address] [place] [address] PCP - General Internal Medicine 06/02/23 Christin Bolton MD [address] [place] [address] Referring Physician Dermatology 02/15/24 Augustine Freitas DO [address] [place] [address] Otolaryngology 02/15/24 Chef Assistant Relationship Specialty Start Date End Date Augustine Metz MD [address] [place] [facility] [place] [id number] PCP - General Internal Medicine 06/02/23 Christin Bolton MD [address] [place] [address] Referring Physician Dermatology 02/15/24 Augustine Freitas DO [address] [place] [address] Otolaryngology 02/15/24 Chef Assistant Relationship Specialty Start Date End Date Augustine Metz MD [address] [place] [facility] [place] [id number] PCP - General Internal Medicine 06/02/23 Christin Bolton MD [address] [place] [address] Referring Physician Dermatology 02/15/24 Augustine Freitas DO [address] [place] [address] Otolaryngology 02/15/24 Team Status: Inactive Member Role [...] October 22, 2024 End: October 22, 2024 Chef Assistant Relationship Specialty Start Date End Date Augustine Metz MD [facility] [place] [phone] PCP - General Internal Medicine 06/02/23 Christin Bolton MD [address] [facility] [address] [place] [address] Referring Physician Dermatology 02/15/24 Augustine Freitas DO [address] [place] [address] Otolaryngology 02/15/24 Paulina Barboza OD [address] [place] [address] Referring Physician Optometry 12/28/24 Chef Assistant Relationship Specialty Start Date End Date Augustine Metz MD [address] [place] [address] PCP - General Internal Medicine 06/02/23 Christin Bolton MD [address] [place] [address] Referring Physician Dermatology 02/15/24 Augustine Freitas, DO [address] [place] [address] Otolaryngology 02/15/24 Paulina Barboza, OD [address] [place] [address] Referring Physician Optometry 12/28/24 Chef Assistant Relationship Specialty Start Date End Date Augustine Mtez MD [address] [place] [facility] [place] [phone] PCP - General Internal Medicine 06/02/23 Christin Bolton MD [address] [facility] [address] [place] [address] Referring Physician Dermatology 02/15/24 Augustine Freitas, DO [address] [place] [address] Otolaryngology 02/15/24 Paulina Barboza, OD [address] [facility] [place] [address] Referring Physician Optometry 12/28/24 Chef Assistant Relationship Specialty Start Date End Date Augustine Metz MD [address] [place] [facility] [place] [address] PCP - General Internal Medicine 06/02/23 Christin Bolton MD [address] [place] [address] Referring Physician Dermatology 02/15/24 Augustine Freitas DO [address] [place] [address] Otolaryngology 02/15/24 Paulina Barboza OD [address] [place], [place] [id number] Referring Physician Optometry 12/28/24 Chef Assistant Relationship Specialty Start Date End Date Augustine Metz MD [address] [place] [phone] PCP - General Internal Medicine 06/02/23 Christin Bolton MD [address] [facility] [address] [place] [address] Referring Physician Dermatology 02/15/24 Augustine Freitas DO [address] [place] [address] Otolaryngology 02/15/24 Paulina Barboza OD [address] [place] [address] Referring Physician Optometry 12/28/24 Team Status: Inactive [...] to the hypoglycemia management protocol on Ellucid: O-JX-Gihmqzkkozxo Management Protocol insulin regular (HumuLIN R;NovoLIN R) [...] 2 g, Intravenous, Administer over 30 Minutes, EVIDENCE TECHNICIAN TO PROCEDURE, 1 dose, Starting on Tue03/15/22 [...] less than 60 mg/ml. If unresponsive call DYNAMOMETER MECHANIC HYDROmorphone (DILAUDID) injection 0.5 mg 0.5 mg, [...] to the hypoglycemia management protocol on Ellucid: Q-UI-Vttxkypnqntu Management Protocol
And dextrose 10% IV solution [...] less than 60 mg/ml. If unresponsive call DYNAMOMETER MECHANIC
And NOTIFY PHYSICIAN, Blood Glucose LESS THAN 70 mg/dl or greater than 400 mg/dl (CANCELED) Routine, CONTINUOUS, Starting on Tue03/15/22 at 1255, Until Specified
Who to Notify: SMOKE AND FLAME SPECIALIST/Physician
For all Blood Glucose LESS THAN 70 mg/dl, or greater than 400 mg/dl notify SMOKE AND FLAME SPECIALIST/Physician Goals (unrecognized section and content) Goals [...] BE BASED ON THE PRIMARY CLINICAL RECORDS. [employer] provides no warranty or guarantee of the accuracy or completeness of information in this document.
[2025-01-11 08:58] LABS: Free T4 0.88 ng/dL (0.76-1.46)
[2025-01-11 09:02] LABS: Alanine Aminotransferase 20 U/L (16-63); Albumin Globulin Ratio 1.3; Albumin Level 3.5 g/dL (3.4-5.0); Alkaline Phosphatase 81 U/L (46-116); Aspartate Amino Transferase 16 U/L (15-37); Bilirubin Direct 0.2 mg/dL (0.0-0.2); Bilirubin Total 0.7 mg/dL (0.2-1.0); Globulin 2.7 g/dL; Thyroid Stimulating Hormone 15.269 uIU/mL (0.358-3.740); Total Protein 6.2 g/dL (6.4-8.2)
== END 2025-01-11 07:37 | disposition home or self-care (01) ==
LOC: LAB 07:40
PROVIDERS: PCP Internal Medicine; Visit Provider Internal Medicine Interventional Cardiology
DX: Z79.899 Other long term (current) drug therapy (principal)
CPT/HCPCS: 36415; 80076; 84439; 84443

== ENCOUNTER 2025-02-06 10:31 | Observation (INO) | payer MEDICARE, OTHER, SELFPAY ==
[2025-02-06] VITALS (22 sets, daily range): BP systolic 90–122; BP diastolic 48–64; PULSE 54–62; TEMP 36.3–36.9; O2SAT 92–97; BMI 32.5; BMI 33.1
--- NOTE | 2025-02-06 10:47 | ECG_ITS ---
[facility] Test Date: 2025-02-06 Pat Name: EL TRUONG Department: Room: - Gender: Male Rn Vascular: : 1945 Requested By: 1030 Order Number: [id number] Reading MD: OLIVER LIANG M.D. Measurements Intervals [place] Rate: 57 P: 45 WI: 198 QRS: 30 QRSD: 86 T: 90 QT: 420 QTc: 415 Interpretive Statements 1100 Sinus rhythm 4068 Nonspecific Twave abnormality 9130 borderline ECG Compared to ECG 04/01/2024 15:26:37 No significant changes Electronically Signed On 02-06-2025 22:59:26 EDT by OLIVER LIANG M.D.
--- NOTE | 2025-02-06 10:48 | ED.GENADUL1 ---
HPI HPI - General Adult General Chief complaint: Weakness Stated complaint: CHILLS, WEAKNESS, DIZZINESS Time Seen by Provider: 02/06/25 10:39 Source: patient Mode of arrival: Wheelchair Limitations: no limitations History of Present Illness HPI narrative: 80-year-old male presents for chills. He had them last night he states his pillow when he woke up. His stomach was hurting last night but that seems to have essentially completely resolved. No chest pain or cough or shortness of breath. He does not complain of chest pain. His daughter did at home COVID on him today and it was negative. He does not complain of cough or shortness of breath. No dysuria or hematuria Related Data Home Medications ?Medication ?Instructions ?Recorded ?Confirmed amlodipine 10 mg tablet 5 mg PO .nightly 07/05/23 02/06/25 aspirin 81 mg tablet,delayed 81 mg PO DAILY 07/05/23 02/06/25 release (Adult Aspirin Regimen) atorvastatin 10 mg tablet (Lipitor) 10 mg PO DAILY 07/05/23 02/06/25 benazepril 20 mg tablet 20 mg PO DAILY 07/05/23 02/06/25 carvedilol 6.25 mg tablet 12.5 mg PO BID 07/05/23 02/06/25 clonazepam 1 mg tablet 1 mg PO .nightly 07/05/23 02/06/25 omeprazole 20 mg capsule,delayed 20 mg PO DAILY 07/05/23 02/06/25 release trazodone 50 mg tablet 50 mg PO .nightly 07/05/23 02/06/25 glimepiride 1 mg tablet mg 02/06/25 Allergies Allergy/AdvReac Type Severity Reaction Status Date / Time iodine Allergy Hives Verified 02/06/25 10:41 Penicillins Allergy Unknown Verified 02/06/25 10:41 Sulfa (Sulfonamide Allergy Unknown Verified 02/06/25 10:41 Antibiotics) Opioid HPI Opioid Management Most Recent Opioid Data: Last Pain Scale 0 04/02/24, 07:00 Last ORT Total Score 0 04/01/24, 19:21 Last ORT Risk Category Low Risk 04/01/24, 19:21 Review of Systems ROS Narrative A ten point review of systems is negative except as noted above. [facility] Medical History (Updated 02/06/25 @ 13:17 by Howard Carmona MD) CKD stage 3a, GFR 45-59 ml/min ?N18.31 - Chronic kidney disease, stage 3a (ICD-10) Benign essential hypertension ?I10 - Essential (primary) hypertension (ICD-10) Diabetes mellitus ?E11.9 - Type 2 diabetes mellitus without complications (ICD-10) Paroxysmal atrial fibrillation ?I48.0 - Paroxysmal atrial fibrillation (ICD-10) Presence of Watchman left atrial appendage closure device ?Z95.818 - Presence of other cardiac implants and grafts (ICD-10) HTN (hypertension) ?I10 - Essential (primary) hypertension (ICD-10) Brain bleed ?I61.9 - Nontraumatic intracerebral hemorrhage, unspecified (ICD-10) High cholesterol ?E78.00 - Pure hypercholesterolemia, unspecified (ICD-10) Melanoma ?C43.9 - Malignant melanoma of skin, unspecified (ICD-10) H/O cardiovascular stress test ?Z92.89 - Personal history of other medical treatment (ICD-10) History of cardioversion ?Z92.89 - Personal history of other medical treatment (ICD-10) 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 - 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, initial encounter (ICD-10) Atrial fibrillation ?I48.91 - Unspecified atrial fibrillation (ICD-10) Surgical History 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) History of ERCP ?Z98.890 - Other specified postprocedural states (ICD-10) History of colonoscopy ?Z98.890 - Other specified postprocedural states (ICD-10) History of knee replacement ?Z96.659 - Presence of unspecified artificial knee joint (ICD-10) History of lateral meniscus repair of left knee ?Z98.890 - Other specified postprocedural states (ICD-10) Family History (Updated 04/01/24 @ 20:20 by Caren Rapp) Father Family history of CHF (congestive heart failure) Family history of hypertension Mother Family history of cancer Family history of hypertension Grandmother Family history of diabetes mellitus Other Family history of myocardial infarction Social History (Updated 04/01/24 @ 20:21 by Caren Rapp) Within the past year, how often did you have a drink containing alcohol: never Score interpretation: A score less than 4 is consistent with normal alcohol consumption. Smoking status: Never smoker Non-prescribed substance use: denies use Highest level of school completed/degree received: high school graduate Are you now , , , , never or living with a partner: Little interest or pleasure in doing things: not at all Feeling down, depressed, or hopeless: not at all Feel stressed/tense/nervous/anxious/difficulty sleeping: not at all Do you think of yourself as: straight/heterosexual Gender Identity: male Exam Narrative Exam Narrative: Nurses note and vital signs reviewed and patient is not hypoxic. General: The patient appears well and in no apparent distress. Patient is resting comfortably on cart. Skin: Warm, dry, no pallor noted. There is no rash noted. Head: Normocephalic, atraumatic Eye: Normal conjunctiva, no drainage Ears, Nose, Mouth, and Throat: oral mucosa is moist. Nares patent. Cardiovascular: Regular Rate and Rhythm Respiratory: Patient is in no distress, no accessory muscle use, lungs are clear to auscultation, no wheezing, rales or rhonchi Back: non-tender GI: Soft and no appreciable tenderness. Musculoskeletal: The patient has no evidence of calf tenderness, no pitting edema, symmetrical pulses noted bilaterally Neurological: A&O, normal speech Psychiatric: Cooperative Constitutional Vital Signs, click to edit/add: Last Vital Signs Temp 98.4 F 02/06/25 10:38 Pulse 55 L 02/06/25 12:00 Resp 13 02/06/25 12:00 BP 118/59 02/06/25 12:00 Pulse Ox 97 02/06/25 12:00 O2 Del Method Room Air 02/06/25 10:38 Course Vital Signs Vital signs: Vital Signs Temperature 98.4 F 02/06/25 10:38 Pulse Rate 61 02/06/25 10:38 Respiratory Rate 18 02/06/25 10:38 Blood Pressure 108/57 02/06/25 10:38 Pulse Oximetry 96 02/06/25 10:38 Oxygen Delivery Method Room Air 02/06/25 10:38 Temperature 98.4 F 02/06/25 10:38 Pulse Rate 55 L 02/06/25 12:00 Respiratory Rate 13 02/06/25 12:00 Blood Pressure 118/59 02/06/25 12:00 Pulse Oximetry 97 02/06/25 12:00 Oxygen Delivery Method Room Air 02/06/25 10:38 Medical Decision Making MDM Narrative Medical decision making narrative: His workup indicates a creatinine of 2.33 which is above his baseline of 1.4. He was given IV fluids. Thus far he has been unable to give a urine specimen. We did a bladder scan and there was no urine in his bladder. He has no abdominal pain and repeat examination at 1:15 PM shows no abdominal tenderness on palpation. He will be admitted for observation. Treatment diagnosis and disposition were discussed with the patient and his daughter. Differential Diagnosis Differential Diagnosis: Dehydration, acute kidney injury, UTI Lab Data Lab results reviewed: Yes I reviewed the patient's lab results Labs: Lab Results 02/06/25 Range/Units 10:55 WBC 10.8 (4.0-11.0) 10^3/uL RBC 4.23 L (4.70-6.10) 10^6/uL Hgb 13.5 L (14.0-18.0) g/dL Hct 39.9 L (42.0-54.0) % MCV 94.3 H (80.0-94.0) fL MCH 31.9 (25.9-34.0) pg MCHC 33.8 (29.9-35.2) g/dL RDW 13.2 (11.0-15.0) % Plt Count 164 (150-450) 10^3/uL MPV 11.4 (9.5-13.5) fL Neut % (Auto) 83.4 H (43.0-75.0) % Lymph % (Auto) 9.0 L (20.5-60.0) % Blount % (Auto) 6.8 (1.7-12.0) % Eos % (Auto) 0.0 L (0.9-7.0) % Baso % (Auto) 0.3 (0.2-2.0) % Neut # (Auto) 9.0 H (1.4-6.5) 10^3/uL Lymph # (Auto) 1.0 L (1.2-3.8) 10^3/uL Blount # (Auto) 0.7 (0.3-0.8) 10^3/uL Eos # (Auto) 0.0 (0.0-0.7) 10^3/uL Baso # (Auto) 0.0 (0.0-0.1) 10^3/uL Abs Immat Gran (auto) 0.05 H (0.00-0.03) 10^3/uL Imm/Tot Granulo (auto) 0.5 (0.0-0.5) % Sodium 138 (136-145) mmol/L Potassium 4.2 (3.5-5.1) mmol/L Chloride 102 (98-107) mmol/L Carbon Dioxide 26.9 (21.0-32.0) mmol/L Anion Gap 13.3 BUN 21.0 H (7.0-18.0) mg/dL Creatinine 2.33 H (0.70-1.30) mg/dL Est GFR ( Amer) 33 L (>=60 mL/min/1.73m^2) Est GFR (Non-Af Amer) 27 L (>=60 mL/min/1.73m^2) BUN/Creatinine Ratio 9.0 Glucose 221 H (74-106) mg/dL Calcium 8.6 (8.5-10.1) mg/dL Total Bilirubin 0.9 (0.2-1.0) mg/dL Direct Bilirubin 0.2 (0.0-0.2) mg/dL AST 18 (15-37) U/L ALT 24 (16-63) U/L Alkaline Phosphatase 80 (46-116) U/L Troponin I High Sens 5.5 (4.0-76.1) pg/mL Total Protein 6.3 L (6.4-8.2) g/dL Albumin 3.3 L (3.4-5.0) g/dL Globulin 3.0 g/dL Albumin/Globulin Ratio 1.1 Amylase 41 (25-115) U/L Lipase 28.0 (16.0-77.0) U/L Influenza Type A Ag Negative Influenza Type B Ag Negative Imaging Data Chest x-ray: My impression: No acute findings ECG Data Attestation: I personally reviewed and interpreted this ECG as follows: (EKG on my interpretation shows sinus rhythm with rate of 57 and no acute change) Discharge Plan Discharge Chief Complaint: Weakness Clinical Impression: Acute kidney injury Patient Disposition: Admitted as Observation Time of Disposition Decision: 13:17 Condition: Good
[2025-02-06] MEDS: 0.9 % SODIUM CHLORIDE 1,000 ML 200 ML IV (11:03)
[2025-02-06 11:14] LABS: Basophils Percent Auto 0.3 % (0.2-2.0); Hematocrit 39.9 % (42.0-54.0); Hemoglobin 13.5 g/dL (14.0-18.0); Immature Granulocytes Abs Auto 0.05 10^3/uL (0.00-0.03); Immature Granulocytes Pct Auto 0.5 % (0.0-0.5); Mean Corpuscular HGB Conc 33.8 g/dL (29.9-35.2); Mean Corpuscular Hemoglobin 31.9 pg (25.9-34.0); Mean Corpuscular Volume 94.3 fL (80.0-94.0); Mean Platelet Volume 11.4 fL (9.5-13.5); Monocytes Absolute Auto 0.7 10^3/uL (0.3-0.8); Monocytes Percent Auto 6.8 % (1.7-12.0); Neutrophils Percent Auto 83.4 % (43.0-75.0); Platelet Count 164 10^3/uL (150-450); Red Blood Count 4.23 10^6/uL (4.70-6.10); Red Cell Distribution Width 13.2 % (11.0-15.0); White Blood Count 10.8 10^3/uL (4.0-11.0)
[2025-02-06 11:30] LABS: Alanine Aminotransferase 24 U/L (16-63); Albumin Globulin Ratio 1.1; Albumin Level 3.3 g/dL (3.4-5.0); Alkaline Phosphatase 80 U/L (46-116); Amylase 41 U/L (25-115); Anion Gap 13.3; Aspartate Amino Transferase 18 U/L (15-37); Bilirubin Direct 0.2 mg/dL (0.0-0.2); Bilirubin Total 0.9 mg/dL (0.2-1.0); Calcium 8.6 mg/dL (8.5-10.1); Carbon Dioxide 26.9 mmol/L (21.0-32.0); Chloride 102 mmol/L (98-107); Estimated GFR (African America 33 (>=60 mL/min/1.73m^2); Estimated GFR (Non-African Ame 27 (>=60 mL/min/1.73m^2); Glucose 221 mg/dL (74-106); Potassium 4.2 mmol/L (3.5-5.1); Sodium 138 mmol/L (136-145); Total Protein 6.3 g/dL (6.4-8.2); Troponin I High Sensitivity 5.5 pg/mL (4.0-76.1)
[2025-02-06 12:07] LABS: Influenza Virus A Antigen Negative; Influenza Virus B Antigen Negative; Internal Control Within Normal Limits
--- NOTE | 2025-02-06 13:45 | PM.HP ---
HPI H&P: HPI History of Present Illness Chief complaint: CHILLS, WEAKNESS, DIZZINESS ACUTE KIDNEY INJURY Narrative: Patient is a 80-year-old male with a past medical history of CKD stage IIIa, HTN, DM type II non insulin dept, paroxysmal A-fib s/p Watchman device placement, HLD, insomnia, GERD, sleep apnea on CPAP who presented to the ER today with complaints of fever 100.0, chills, sweats and lower abdominal pain last night. He denied any diarrhea, nausea or vomiting. He has had colonoscopy in the past and denies any history of diverticulitis or colitis. He does however get occasional biliary stones requiring interventions in the past. He denies any urinary issues. He was recently started on Glipizide by Dr. Frost. No other new medications. Currently he denies any of the above complaints that he had last night. He has been passing gas. ER findings: WBC's 10.8, Hb 13.5, Cr 2.33, K 4.2, BUN 21, AST 18, ALT 24, Lipase 28, influenza negative Opioid HPI Opioid Management Most Recent Pain and Opioid Data: Last Pain Scale 0 04/02/24, 07:00 Last Pain Assessment Today, 14:00 Last ORT Total Score 0 Today, 13:43 Last ORT Risk Category Low Risk Today, 13:43 Review of Systems ROS Narrative ROS: a complete review of systems were reviewed with patient and are positive as below or listed in History of Chief Complaint. General: no fever, chills, night sweats Head: no headache, trauma, visual changes, nausea or vomiting Skin: no reported rashes, itching or sores Eyes: no blurriness of vision Ears: no reported hearing loss, vertigo, earache, or tinnitus Throat: no sore throat, hoarseness, swelling of neck, or tongue pain Heart: no chest pain Lungs: no shortness of breath or cough GI: no diarrhea or vomiting/nausea Urinary: no urinary urgency, frequency or pain Neuro: no numbness or tingling HEM: no bleeding issues or bruising ENDO: no thyroid problems Psych: no anxiety or depression [facility] Medical History (Updated 02/06/25 @ 15:41 by Esther Larson, ) Insomnia ?G47.00 - Insomnia, unspecified (ICD-10) GERD without esophagitis ?K21.9 - Gastro-esophageal reflux disease without esophagitis (ICD-10) CKD stage 3a, GFR 45-59 ml/min ?N18.31 - Chronic kidney disease, stage 3a (ICD-10) Benign essential hypertension ?I10 - Essential (primary) hypertension (ICD-10) Diabetes mellitus ?E11.9 - Type 2 diabetes mellitus without complications (ICD-10) Paroxysmal atrial fibrillation ?I48.0 - Paroxysmal atrial fibrillation (ICD-10) Presence of Watchman left atrial appendage closure device ?Z95.818 - Presence of other cardiac implants and grafts (ICD-10) HTN (hypertension) ?I10 - Essential (primary) hypertension (ICD-10) Brain bleed ?I61.9 - Nontraumatic intracerebral hemorrhage, unspecified (ICD-10) High cholesterol ?E78.00 - Pure hypercholesterolemia, unspecified (ICD-10) Melanoma ?C43.9 - Malignant melanoma of skin, unspecified (ICD-10) H/O cardiovascular stress test ?Z92.89 - Personal history of other medical treatment (ICD-10) History of cardioversion ?Z92.89 - Personal history of other medical treatment (ICD-10) 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 - 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, initial encounter (ICD-10) Atrial fibrillation ?I48.91 - Unspecified atrial fibrillation (ICD-10) Surgical History 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) History of ERCP ?Z98.890 - Other specified postprocedural states (ICD-10) History of colonoscopy ?Z98.890 - Other specified postprocedural states (ICD-10) History of knee replacement ?Z96.659 - Presence of unspecified artificial knee joint (ICD-10) History of lateral meniscus repair of left knee ?Z98.890 - Other specified postprocedural states (ICD-10) Family History (Updated 04/01/24 @ 20:20 by Caren Rapp) Father Family history of CHF (congestive heart failure) Family history of hypertension Mother Family history of cancer Family history of hypertension Grandmother Family history of diabetes mellitus Other Family history of myocardial infarction Social History (Updated 04/01/24 @ 20:21 by Caren Rapp) Within the past year, how often did you have a drink containing alcohol: never Score interpretation: A score less than 4 is consistent with normal alcohol consumption. Smoking status: Never smoker Non-prescribed substance use: denies use Highest level of school completed/degree received: high school graduate Are you now , , , , never or living with a partner: Little interest or pleasure in doing things: not at all Feeling down, depressed, or hopeless: not at all Feel stressed/tense/nervous/anxious/difficulty sleeping: not at all Do you think of yourself as: straight/heterosexual Gender Identity: male Meds Home Medications and Allergies Home Medications ?Medication ?Instructions ?Recorded ?Confirmed ?Type amlodipine 10 mg tablet 5 mg PO .nightly 07/05/23 02/06/25 History aspirin 81 mg tablet,delayed 81 mg PO DAILY 07/05/23 02/06/25 History release (Adult Aspirin Regimen) atorvastatin 10 mg tablet (Lipitor) 10 mg PO DAILY 07/05/23 02/06/25 History benazepril 20 mg tablet 20 mg PO DAILY 07/05/23 02/06/25 History carvedilol 6.25 mg tablet 12.5 mg PO BID 07/05/23 02/06/25 History clonazepam 1 mg tablet 1 mg PO .nightly 07/05/23 02/06/25 History omeprazole 20 mg capsule,delayed 20 mg PO DAILY 07/05/23 02/06/25 History release trazodone 50 mg tablet 50 mg PO .nightly 07/05/23 02/06/25 History acetaminophen 500 mg tablet 1,000 mg PO .Q8 02/06/25 02/06/25 History glimepiride 1 mg tablet 1 mg PO DAILY 02/06/25 02/06/25 History vitamins A,C,J-bjlu-pujeer 4,296 1 cap PO BID 02/06/25 02/06/25 History mcg-226 mg-90 mg capsule (PreserVision AREDS) Allergies Allergy/AdvReac Type Severity Reaction Status Date / Time iodine Allergy Hives Verified 02/06/25 10:41 Penicillins Allergy Unknown Verified 02/06/25 10:41 Sulfa (Sulfonamide Allergy Unknown Verified 02/06/25 10:41 Antibiotics) Exam Narrative Exam Narrative: General: Patient is alert, and oriented to person, place and time with normal affect, proper hygiene Skin: no visible rashes, or ulcers Head: atraumatic, acephalic Eyes: PERRLA, no nystagmus present, conjunctiva clear, no scleral icterus Ears: slightly diminished gross auditory acuity Nose: symmetric, no discharge, no maxillary or frontal sinus tenderness Mouth/Throat: no erythema, exudate, or tonsillar enlargement, normal dentition Neck: no masses palpated, normal thyroid Heart: Normal rate and rhythm, no murmurs/rubs/gallops Lungs: no audible wheezes, crackles and normal breath sounds all lung kaur Abdomen: Normal audible bowel sounds, no distension, No palpable masses, no organomegaly, no rebound/guarding/ or rigidity Musculoskeletal: no swelling bilateral lower extremities Neuro: CN II-X grossly intact, normal sensation upper and lower extremities Constitutional Vital Signs, click to edit/add: Last Vital Signs Temp 98.4 F 02/06/25 10:38 Pulse 58 L 02/06/25 13:30 Resp 10 L 02/06/25 13:30 BP 118/59 02/06/25 12:00 Pulse Ox 97 02/06/25 12:00 O2 Del Method Room Air 02/06/25 10:38 Results Labs Labs: Short CBC 02/06/25 Range/Units 10:55 WBC 10.8 (4.0-11.0) 10^3/uL Hgb 13.5 L (14.0-18.0) g/dL Hct 39.9 L (42.0-54.0) % Plt Count 164 (150-450) 10^3/uL BMP 02/06/25 10:55 Sodium 138 Potassium 4.2 Chloride 102 Carbon Dioxide 26.9 BUN 21.0 H Creatinine 2.33 H Glucose 221 H Calcium 8.6 Liver Function 02/06/25 Range/Units 10:55 Total Bilirubin 0.9 (0.2-1.0) mg/dL Direct Bilirubin 0.2 (0.0-0.2) mg/dL AST 18 (15-37) U/L ALT 24 (16-63) U/L Alkaline Phosphatase 80 (46-116) U/L Albumin 3.3 L (3.4-5.0) g/dL Assessment and Plan Assessment and Plan (1) Acute kidney injury: Assessment and Plan: baseline cr 1.4, admitting was 2.33. Continue with IVF with LR @125, check UA, Check CT of abdomen and Pelvis. (2) CKD stage 3a, GFR 45-59 ml/min: Assessment and Plan: see #1 (3) Benign essential hypertension: Assessment and Plan: continue amlodipine, benazipril, coreg (4) Diabetes mellitus: Assessment and Plan: accuchecks qachs, SSI as needed, hold glimepiride Qualifiers: Chronic kidney disease stage: stage 3 (moderate) Chronic kidney disease stage 3 subtype: stage 3a (GFR 45-59) Diabetes mellitus complication detail: with chronic kidney disease Diabetes mellitus complication status: with kidney complications Diabetes mellitus skilled nursing insulin use: without skilled nursing use Diabetes mellitus type: type 2 Qualified Code(s): E11.22 - Type 2 diabetes mellitus with diabetic chronic kidney disease; N18.31 - Chronic kidney disease, stage 3a (5) Paroxysmal atrial fibrillation: Assessment and Plan: Has Watchman, continue coreg (6) Presence of Watchman left atrial appendage closure device: (7) High cholesterol: Assessment and Plan: continue lipitor (8) GERD without esophagitis: Assessment and Plan: continue protonix (9) Insomnia: Assessment and Plan: continue trazodone and Klonipin Qualifiers: Insomnia type: primary Qualified Code(s): F51.01 - Primary insomnia Plan Patient is a full code Patient has Watchman Patient is observation status and is not expected to cross 2 midnights
[2025-02-06] MEDS: LACTATED RINGER'S SOLUTION 1,000 ML 125 ML IV ×2 (14:37→21:51)
--- NOTE | 2025-02-06 14:54 | SWNOTE1 ---
Medicare Outpatient Observation Notice reviewed and discussed with patient. Pt. verbalized understanding and signed the form. Original given to patient and copy placed in patient?s chart.
--- NOTE | 2025-02-06 14:54 | SWNOTE1 ---
SW met with pt to discuss dc needs. Pt lives at home by himself. Pt does not use any DME at home. Pt still drives and voiced he is independent. Pt does not have any services coming in to the home at this time. Pt voiced no concerns about discharge at this time. SW to follow as needed.
[2025-02-06] MEDS: ACETAMINOPHEN 500 MG TABLET 1000 MG PO ×2 (16:27→21:51)
[2025-02-06 16:28] LABS: Glucometer 86 mg/dL (74-106)
[2025-02-06 18:41] LABS: Bilirubin Urine NEGATIVE (NEGATIVE); Blood Urine NEGATIVE (NEGATIVE); Clarity Urine CLEAR (CLEAR); Color Urine LT. YELLOW (YELLOW); Glucose Urine UA NEGATIVE (NEGATIVE); Ketones Urine NEGATIVE (NEGATIVE); Leukocyte Esterase Urine NEGATIVE (NEGATIVE); Nitrite Urine NEGATIVE (NEGATIVE); Protein Urine NEGATIVE (NEG/TRACE); Urobilinogen Urine 0.2 EU/dL (0.2-1.0)
[2025-02-06 19:01] LABS: Bacteria Urine TRACE #/HPF (NONE SEEN); Cast Seen? NONE SEEN #/LPF (NONE SEEN); Crystals Seen? None Seen #/HPF (None Seen); Mucus Urine NONE SEEN (NONE SEEN); RBC Urine NONE SEEN #/HPF (0-2); Squamous Epithelial Cell Urine RARE #/LPF (NONE/RARE); Urine Culture Indicated NO; WBC Urine NONE SEEN #/HPF (NONE SEEN)
[2025-02-06 19:46] LABS: Glucometer 105 mg/dL (74-106)
[2025-02-06] MEDS: CARVEDILOL 12.5 MG TABLET PO (21:51)
[2025-02-06] MEDS: AMLODIPINE BESYLATE 5 MG TABLET PO (21:51)
[2025-02-06] MEDS: TRAZODONE HCL 50 MG TABLET PO (21:51)
[2025-02-06] MEDS: VITS A,C,E/LUTEIN/MINERALS 1 TABLET 1 TAB PO (21:51)
[2025-02-06] MEDS: CLONAZEPAM 0.5 MG TABLET 1 MG PO (21:51)
[2025-02-07 00:16] VITALS: BP 117/72; PULSE 54; O2SAT 95
[2025-02-07 04:56] VITALS: BP 169/79; PULSE 64; TEMP 36.3; O2SAT 94
[2025-02-07 05:06] LABS: Basophils Percent Auto 0.5 % (0.2-2.0); Eosinophils Absolute Auto 0.2 10^3/uL (0.0-0.7); Eosinophils Percent Auto 2.7 % (0.9-7.0); Hematocrit 37.2 % (42.0-54.0); Hemoglobin 12.2 g/dL (14.0-18.0); Immature Granulocytes Abs Auto 0.01 10^3/uL (0.00-0.03); Immature Granulocytes Pct Auto 0.2 % (0.0-0.5); Lymphocytes Absolute Auto 1.6 10^3/uL (1.2-3.8); Lymphocytes Percent Auto 24.2 % (20.5-60.0); Mean Corpuscular HGB Conc 32.8 g/dL (29.9-35.2); Mean Corpuscular Hemoglobin 31.1 pg (25.9-34.0); Mean Corpuscular Volume 94.9 fL (80.0-94.0); Mean Platelet Volume 11.6 fL (9.5-13.5); Monocytes Absolute Auto 0.8 10^3/uL (0.3-0.8); Monocytes Percent Auto 12.1 % (1.7-12.0); Neutrophils Percent Auto 60.3 % (43.0-75.0); Platelet Count 126 10^3/uL (150-450); Red Blood Count 3.92 10^6/uL (4.70-6.10); Red Cell Distribution Width 13.4 % (11.0-15.0); White Blood Count 6.6 10^3/uL (4.0-11.0)
[2025-02-07 05:27] LABS: Alanine Aminotransferase 20 U/L (16-63); Albumin Level 2.7 g/dL (3.4-5.0); Alkaline Phosphatase 66 U/L (46-116); Aspartate Amino Transferase 16 U/L (15-37); BUN Creatinine Ratio 13.6; Bilirubin Total 0.7 mg/dL (0.2-1.0); Calcium 8.6 mg/dL (8.5-10.1); Carbon Dioxide 29.6 mmol/L (21.0-32.0); Estimated GFR (African America 43 (>=60 mL/min/1.73m^2); Estimated GFR (Non-African Ame 36 (>=60 mL/min/1.73m^2); Globulin 2.8 g/dL; Glucose 91 mg/dL (74-106); Total Protein 5.5 g/dL (6.4-8.2)
[2025-02-07 05:38] LABS: Anion Gap 8.4; Chloride 103 mmol/L (98-107); Sodium 137 mmol/L (136-145)
[2025-02-07] MEDS: ACETAMINOPHEN 500 MG TABLET 1000 MG PO ×2 (06:00→13:09)
[2025-02-07] MEDS: LACTATED RINGER'S SOLUTION 1,000 ML 125 ML IV (06:01)
[2025-02-07] MEDS: PANTOPRAZOLE SODIUM 40 MG TABLET.DR PO (06:06)
[2025-02-07 07:15] VITALS: BP 131/73; PULSE 65; TEMP 36.4; O2SAT 93
--- NOTE | 2025-02-07 07:58 | P.DS_ITS ---
DS: Providers Provider Date of admission: 02/06/25 13:37 Primary care physician: Augustine Frost DO Attending physician on admission: Esther Larson Discharging clinician: Esther Larson DS: Diagnosis Discharge Diagnosis (1) Acute kidney injury: (2) CKD stage 3a, GFR 45-59 ml/min: (3) Benign essential hypertension: (4) Diabetes mellitus: Qualifiers: Chronic kidney disease stage: stage 3 (moderate) Chronic kidney disease stage 3 subtype: stage 3a (GFR 45-59) Diabetes mellitus complication detail: with chronic kidney disease Diabetes mellitus complication status: with kidney complications Diabetes mellitus assisted insulin use: without assisted use Diabetes mellitus type: type 2 Qualified Code(s): E11.22 - Type 2 diabetes mellitus with diabetic chronic kidney disease; N18.31 - Chronic kidney disease, stage 3a (5) Paroxysmal atrial fibrillation: (6) Presence of Watchman left atrial appendage closure device: (7) High cholesterol: (8) GERD without esophagitis: (9) Insomnia: Qualifiers: Insomnia type: primary Qualified Code(s): F51.01 - Primary insomnia DS: Summary Hospital Course Hospital Course: Patient is a 80-year-old male with a past medical history of CKD stage IIIa, HTN, DM type II non insulin dept, paroxysmal A-fib s/p Watchman device placement, HLD, insomnia, GERD, sleep apnea on CPAP who presented to the ER with complaints of fever 100.0, chills, sweats and lower abdominal pain. He denied any diarrhea, nausea or vomiting. He has had colonoscopy in the past and denies any history of diverticulitis or colitis. He does however get occasional biliary stones requiring interventions in the past. He denies any urinary issues. He was recently started on Glipizide by Dr. Frost. No other new medications. patient had no further of the above complaints that he had prior to admission. He has been passing gas. 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 At the time of discharge he denies weakness, Cr is down to 1.84, WBC's 6.6. Vitals have been stable. Discussed stopping glipizide since sulfa allergy and recent EDEN, ha1c was 8.1. He did mention that Dr. Frost was going to try something else first, but it was expensive. I have sent in Jardiance 10mg daily, but if it is expensive I ask him to discuss with Dr. Frost before picking up. He will need rec heck BMP in 1 week to make sure renal function has returned to baseline. He will resume all other home medications. He may return to the ER with any worsening signs or symptoms. Status at Discharge Overall status at discharge: patient is back to baseline Time Spent with Patient Time attestation: Total time spent providing and/or coordinating discharge services: Exam Narrative Exam Narrative: General: Patient is alert, and oriented to person, place and time with normal affect, proper hygiene Skin: no visible rashes, or ulcers Head: atraumatic, acephalic Eyes: PERRLA, no nystagmus present, conjunctiva clear, no scleral icterus Ears: normal gross auditory acuity Heart: Normal rate and rhythm, no murmurs/rubs/gallops Lungs: no audible wheezes, crackles and normal breath sounds all lung kaur Abdomen: Normal audible bowel sounds, no distension, No palpable masses, no organomegaly, no rebound/guarding/ or rigidity Musculoskeletal: no swelling bilateral lower extremities Neuro: CN II-X grossly intact Constitutional Vital Signs, click to edit/add: Last Vital Signs Temp 97.6 F 02/07/25 07:15 Pulse 65 02/07/25 07:15 Resp 20 02/07/25 07:15 BP 131/73 02/07/25 07:15 Pulse Ox 93 L 02/07/25 07:15 O2 Del Method Room Air 02/07/25 07:15 DS: Data Data Completed and Pending Labs on day of discharge: Labs from last 24 hours 02/07/25 02/06/25 02/06/25 04:41 19:45 17:30 WBC 6.6 RBC 3.92 L Hgb 12.2 L Hct 37.2 L MCV 94.9 H MCH 31.1 MCHC 32.8 RDW 13.4 Plt Count 126 L MPV 11.6 Neut % (Auto) 60.3 Lymph % (Auto) 24.2 [place] % (Auto) 12.1 H Eos % (Auto) 2.7 Baso % (Auto) 0.5 Neut # (Auto) 4.0 Lymph # (Auto) 1.6 [place] # (Auto) 0.8 Eos # (Auto) 0.2 Baso # (Auto) 0.0 Abs Immat Gran (auto) 0.01 Imm/Tot Granulo (auto) 0.2 Sodium 137 Potassium 4.0 Chloride 103 Carbon Dioxide 29.6 Anion Gap 8.4 BUN 25.0 H Creatinine 1.84 H Est GFR ( Amer) 43 L Est GFR (Non-Af Amer) 36 L BUN/Creatinine Ratio 13.6 Glucose 91 Calcium 8.6 Total Bilirubin 0.7 Direct Bilirubin AST 16 ALT 20 Alkaline Phosphatase 66 Troponin I High Sens Total Protein 5.5 L Albumin 2.7 L Globulin 2.8 Albumin/Globulin Ratio 1.0 Amylase Lipase Urine Color Lt. yellow Urine Clarity Clear Urine pH 6.0 Ur Specific [place] 1.010 Urine Protein Negative Urine Glucose (UA) Negative Urine Ketones Negative Urine Occult Blood Negative Urine Nitrite Negative Urine Bilirubin Negative Urine Urobilinogen 0.2 Ur Leukocyte Esterase Negative Urine RBC None seen Urine WBC None seen Ur Squamous Epith Cells Rare Urine Crystals None seen Urine Bacteria Trace A Urine Casts None seen Urine Mucus None seen Ur Culture Indicated? No Influenza Type A Ag Influenza Type B Ag POC Glucose 105 02/06/25 02/06/25 16:26 10:55 WBC 10.8 RBC 4.23 L Hgb 13.5 L Hct 39.9 L MCV 94.3 H MCH 31.9 MCHC 33.8 RDW 13.2 Plt Count 164 MPV 11.4 Neut % (Auto) 83.4 H Lymph % (Auto) 9.0 L [place] % (Auto) 6.8 Eos % (Auto) 0.0 L Baso % (Auto) 0.3 Neut # (Auto) 9.0 H Lymph # (Auto) 1.0 L [place] # (Auto) 0.7 Eos # (Auto) 0.0 Baso # (Auto) 0.0 Abs Immat Gran (auto) 0.05 H Imm/Tot Granulo (auto) 0.5 Sodium 138 Potassium 4.2 Chloride 102 Carbon Dioxide 26.9 Anion Gap 13.3 BUN 21.0 H Creatinine 2.33 H Est GFR ( Amer) 33 L Est GFR (Non-Af Amer) 27 L BUN/Creatinine Ratio 9.0 Glucose 221 H Calcium 8.6 Total Bilirubin 0.9 Direct Bilirubin 0.2 AST 18 ALT 24 Alkaline Phosphatase 80 Troponin I High Sens 5.5 Total Protein 6.3 L Albumin 3.3 L Globulin 3.0 Albumin/Globulin Ratio 1.1 Amylase 41 Lipase 28.0 Urine Color Urine Clarity Urine pH Ur Specific [place] Urine Protein Urine Glucose (UA) Urine Ketones Urine Occult Blood Urine Nitrite Urine Bilirubin Urine Urobilinogen Ur Leukocyte Esterase Urine RBC Urine WBC Ur Squamous Epith Cells Urine Crystals Urine Bacteria Urine Casts Urine Mucus Ur Culture Indicated? Influenza Type A Ag Negative Influenza Type B Ag Negative POC Glucose 86 Discharge Plan Discharge Disposition: Home, Self-Care Condition: Good Discharge Medications: New Jardiance 10 mg tablet 10 mg PO DAILY Qty: 30 0RF Continued amlodipine 10 mg tablet 5 mg PO .nightly benazepril 20 mg tablet 20 mg PO DAILY atorvastatin [Lipitor] 10 mg tablet 10 mg PO DAILY omeprazole 20 mg capsule,delayed release(DR/EC) 20 mg PO DAILY aspirin [Adult Aspirin Regimen] 81 mg tablet,delayed release (DR/EC) 81 mg PO DAILY carvedilol 6.25 mg tablet 12.5 mg PO BID trazodone 50 mg tablet 50 mg PO .nightly clonazepam 1 mg tablet 1 mg PO .nightly PreserVision AREDS 4,296 mcg-226 mg-90 mg capsule 1 cap PO BID acetaminophen 500 mg tablet 1,000 mg PO .Q8 Discontinued glimepiride 1 mg tablet 1 mg PO DAILY Rx Instructions: half tablet 1x daily am before meal Activity: increase activity as tolerated Diet: advance to your usual diet Print Language: Togolese Patient Instructions: Empagliflozin (By mouth) (Jardiance), Acute Kidney Injury (DC), Weakness (DC) Forms: Portal Instructions Follow Up Appointments: Dr. Frost's office will call to schedule a follow-up appt. [phone] Will need recheck BMP to make sure renal function has returned to baseline.
[2025-02-07] MEDS: LISINOPRIL 20 MG TABLET PO (08:08)
[2025-02-07] MEDS: VITS A,C,E/LUTEIN/MINERALS 1 TABLET 1 TAB PO (08:09)
[2025-02-07] MEDS: CARVEDILOL 12.5 MG TABLET PO (08:09)
[2025-02-07] MEDS: ATORVASTATIN CALCIUM 10 MG TABLET PO (08:09)
[2025-02-07] MEDS: ASPIRIN 81 MG TABLET.DR PO (08:09)
--- NOTE | 2025-02-07 11:08 | CM.NOTE ---
Rounds made with Dr. Larson. Dr. Larson reviews plan of care and medication adjustments with Mr. Goncalves. Mr. Goncalves in agreement. Follow up with Dr. Frost in 5-7 days.
--- NOTE | 2025-02-08 14:45 | CM.DCFOLLOWU ---
Person spoke with:patient How are you feeling? well How is your pain?none Did you understand your discharge instructions?yes Do you have any questions about your discharge instructions?no Were you given any prescriptions at discharge? yes Were you able to get your prescriptions filled? no, cost was $530, spoke to daughter and she called Dr. Prajapati's office Do you understand how to take your medications as ordered?yes Do you have any questions about your follow up appointment and do you plan to keep your follow up appointment? no questions, follow up scheduled Is there anything else that you would like to discuss?no Questions/Comments/Concerns/Other:none
== END 2025-02-07 16:39 | disposition home or self-care (01) ==
LOC: ER 13:17 → MS 13:41
PROVIDERS: Admitting Provider Family Medicine; Emergency Provider Emergency Medicine; PCP Internal Medicine; Visit Provider Family Medicine
DX: N17.9 Acute kidney failure, unspecified (principal); Z79.82 Long term (current) 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; K21.9 Gastro-esophageal reflux disease without esophagitis; G47.30 Sleep apnea, unspecified; F51.01 Primary insomnia; Z88.2 Allergy status to sulfonamides; N18.31 Chronic kidney disease, stage 3a; K86.2 Cyst of pancreas; D35.00 Benign neoplasm of unspecified adrenal gland; I12.9 Hypertensive chronic kidney disease with stage 1 through stage 4 chronic kidney disease, or unspecified chronic kidney disease; E11.22 Type 2 diabetes mellitus with diabetic chronic kidney disease; E78.00 Pure hypercholesterolemia, unspecified; Z85.820 Personal history of malignant melanoma of skin; Z89.022 Acquired absence of left finger(s); Z96.659 Presence of unspecified artificial knee joint; Z79.899 Other long term (current) drug therapy; Z79.84 Long term (current) use of oral hypoglycemic drugs; Z88.0 Allergy status to penicillin; I48.0 Paroxysmal atrial fibrillation; Z88.8 Allergy status to other drugs, medicaments and biological substances
CPT/HCPCS: 36415; 71045; 74176; 80048; 80053; 80076; 81001; 82150; 82948; 83690; 84484; 85025; 87804; 93005; 99285; G0378

== ENCOUNTER 2025-02-12 07:14 | Outpatient (OUT) | payer MEDICARE, OTHER, SELFPAY ==
--- OUTSIDE RECORDS SUMMARY | 2025-02-12 07:21 | XMS_ITS | CCD ---
Author Organization [facility] Informat ion Partnership [facility] Care Team Providers Care Rehabilitator Name Role Phone GENE FAJARDO Admitting Unavailable GENE FAJARDO Attending Unavailable AUGUSTINE METZ Primary Care Unavailable RYAN CARDENAS Referring Unavailable Augustine Metz Primary Care Provider Augustine Metz DO Primary Care Provider [phone] Augustine Metz DO Primary Care Provider Carmen Kahn Unavailable AUGUSTINE METZ Primary Care Physician [phone] Augustine Metz DO Primary Care Provider Damari [...] Care Unavailable ISAÍAS, DR PEREZ Consulting Unavailable ISÍAAS, DR PEREZ Admitting Unavailable ISAÍAS, DR PEREZ [...] BALL, DR PEREZ Primary Care Unavailable Ball DO, Augustine Primary Care Provider [phone] VIRGINIE, AZUL Attending Unavailable VIRGINIE, AZUL Referring Unavailable BALL, AUGUSTINE Primary Care Unavailable VIRGINIE, AZUL Attending Unavailable VIRGINIE, AZUL Referring Unavailable BALL, AUGUSTINE Primary Care Unavailable VIRGINIE, AZUL Attending Unavailable VIRGINIE, AZUL Referring Unavailable BALL, AUGUSTINE Primary Care Unavailable SELF, SELF Referring Unavailable BALL, AUGUSTINE Primary Care Unavailable FOSTER, PASTOR Attending Unavailable ELKE, PASTOR Referring Unavailable BALL, AUGUSTINE Primary Care Unavailable ELKE, PASTOR Attending Unavailable VIRGINIE, AZUL Attending Unavailable SELF, SELF Referring Unavailable BALL, AUGUSTINE Primary Care Unavailable Ball, Augustine Primary Care Unavailable Tutor Key, Colin S Admitting Unavailab james Song, Colin S Attending Unavailab Augustine Ruby MD Primary Care Provider DO Augustine Metz Primary Care Provider Murcek, DO Augustine Attending Provider [phone] Augustine Metz MD Primary Care Provider Christin Bolton MD Unavailable MurAugustine vincent DO Unavailable Augustine Metz MD Primary Care Provider Augustine Metz DO Primary Care Provider [phone] Murcek DO, Augustine Attending Provider Murmelisa, Augustine Admitting Unavailable Ball, Augustine Primary Care Unavailable Murcek, Augustine Attending Unavailable Murcek, Augustine Admitting Unavailable Ball, Augustine Primary Care Unavailable Murcek, Augustine Attending Unavailable Murcek, Augustine Admitting Unavailable Ball, Augustine Primary Care Unavailable Murcek, Augustine Attending Unavailable Ball, Augustine Primary Care Unavailable Murcek, Augustine Admitting Unavailable Murcek, Augustine Attending Unavailable Tamra OD, Paulina Unavailable OSMAN SHAH Attending Unavailable CHRISTIN BOLTON Attending Unavailable ZENA, AUGUSTINE Kelsey Attending Unavailable CHRISTIN BOLTON Referring Unavailable MURMELISA, AUGUSTINE Kelsey Attending Unavailable MURCATHLEENK, AUGUSTINE Kelsey Attending Unavailable JOSE R DODD Attending Unavailable AUGUSTINE FREITAS Attending Unavailable CHRISTIN BOLTON Referring Unavailable JOSE R DODD Attending Unavailable SOMAN SHAH Attending Unavailable SIMRAN MUNIZ Attending Unavailable JOSE R DODD Attending Unavailable KINGSTON COPPOLA Attending Unavailable OSMAN SHAH Attending Unavailable CHRISTIN BOLTON Attending Unavailable AUGUSTINE FREITAS Attending Unavailable AUGUSTINE FREITAS Attending Unavailable AUGUSTINE FREITAS Attending Unavailable CHRISTIN BOLTON Referring Unavailable JOSE R DODD Attending Unavailable ZENA, AUGUSTINE Kelsey Attending Unavailable OSMAN SHAH Attending Unavailable Augustine Metz DO Primary Care Provider [phone] Augustine Freitas DO Attending Provider [phone] OLIVER CRANE Referring Unavailable RAJESH, LIONEL Referring Unavailable RAJEHS, LIONEL Referring Unavailable MOUKARBEL, OLIVER Referring Unavailable MOUKARBEL, OLIVER Referring Unavailable BRIGITTE PERRY Referring Unavailab le RAJESH, LIONEL Referring Unavailable RAJESH, LIONEL Referring Unavailable MOUKARBEL, OLIVER Admitting Unavailable DORI RHODES Attending Unavailable MADISON PAUL Referring Unavailable RAJESH, LIONEL Referring Unavailable MOUKAELANA, OLIVER Referring Unavailable MOUKARBEL, OLIVER Attending Unavailable ELDELORES, MAGGY Attending Unavailable ELHOPEHAWTeresa, MAGGY Attending Unavailable MOUKAOLIVERELOLIVER Attending Unavailable MADISON PAUL Referring Unavailable MADISON PAUL Attending Unavailable Allergies Allergy Classification Reported Allergen(s) Allergy Type Date of Onset Reaction(s) Facility Iodine (and Iodine containting drugs) (1 source) Iodine Drug Allergy 04-04-20 24 Unknown Reaction [facility] Penicillins (antibiotic) (1 source) Penicillins Drug Allergy 04-04-20 24 [facility] Shellfish (2 sources) Shellfish Food Allergy 04-04-20 24 Unknown Reaction [facility] Sulfonamides (antibiotic) (1 source) Sulfonamides (Antibiotic) Drug Allergy 04-04-20 24 Swelling [facility] (20 sources) Iodine; Translations: [iodine] Drug Allergy 08-31-20 09 Unknown, Unknown Reaction, Swelling of Lip/Tongue/Thr oat [facility] Repository (14 sources) Penicillins; Translations: [PENICILLINS] Drug allergy (disorder) 08-01-19 63 Unknown Reaction, Hives [facility] Repository (14 sources) Sulfonamides (Antibiotic); Translations: [SULFA (SULFONAMIDE ANTIBIOTICS)] Drug allergy (disorder) 08-31-19 93 Swelling [facility] Repository (2 sources) Shellfish Containing Products; Translations: [Shellfish Containing Products] Food allergy (disorder) 08-31-20 09 [facility] Repository (20 sources) Iodine; Translations: [iodine] Drug Allergy 08-31-20 09 Swelling, Unknown (qualifier value), Anaphylaxis [facility] (20 sources) Penicillin G Drug Allergy 10-20-19 13 Hives [facility] (20 sources) Shellfish Propensity to adverse reactions to drug 08-31-20 09 Swelling, Other [facility] Dr [facility] (12 sources) Sulfonamides (Antibiotic) Propensity to adverse reactions to drug 10-20-19 13 Swelling [facility] Dr [facility] (11 sources) Penicillins (Antibiotic) Drug allergy Unknown [facility] Other (20 sources) Shrimp product Propensity to adverse reactions 01-31-20 24 Unknown, Unknown Reaction, Swelling of Lip/Tongue/Thr oat [facility] (11 sources) Sulfonamides (Antibiotic) Drug allergy Unknown [facility] Other (5 sources) Penicillin; Translations: [penicillin] Drug Allergy Unknown (qualifier value) [facility] (1 source) Sulfonamides (Antibiotic); Translations: [sulfa drugs] Drug allergy Unknown (qualifier value) [facility] (1 source) No Alert Propensity to adverse reactions to drug 09-14-20 22 [facility] (1 source) Penicillin Drug Allergy 10-01-19 23 [facility] (1 source) Propensity to adverse reactions to drug 10-01-19 23 [facility] (1 source) Iodine Drug Allergy 08-30-20 13 [facility] Repository (1 source) Shellfish Drug allergy (disorder) 08-30-20 13 [facility] Repository (4 sources) sulfADIAZINE Drug Allergy Unknown [facility] Other (20 sources) Substance with sulfonamide structure and antibacterial mechanism of action (substance) Drug allergy 08-31-19 93 Rash, Swelling [facility] Other (1 source) sulfa drug; Translations: [sulfa drug] Propensity to adverse reactions to drug (disorder) [facility] Repository (20 sources) Penicillin V Drug Allergy 01-23-20 23 [facility] (20 sources) Penicillins Drug Allergy 08-01-19 63 Hives [facility] (20 sources) Other; Translations: [OTHER] Allergy to substance 06-30-20 23 Other [facility] (20 sources) Shellfish-Derived Products Drug Allergy 10-20-19 13 Swelling [facility] (12 sources) Shellfish; Translations: [shellfish derived] Allergy to substance 01-31-20 24 Unknown Reaction, Swelling of Lip/Tongue/Thr oat [facility] (1 source) Iodine Drug Allergy 10-22-19 25 [facility] Repository (1 source) Penicillins Drug allergy (disorder) 10-22-19 25 [facility] Repository (1 source) Shrimp product Drug allergy (disorder) 10-22-19 25 [facility] Repository (1 source) Sulfonamides (Antibiotic) Drug allergy (disorder) 10-22-19 25 [facility] Repository Medications Current Medications Medication Drug [...] Active Start: 03-15-2022 take 2 tablets by [facility] every four hours as needed acetaminophen 325 MG tablet Take 2 tablets by mouth every 4 hours as needed for Mild Pain. 50 tablet 1 03/15/2022 Active Start: 03-15-2022 End: 03-16-2022 take 1 tablet by mouth every six hours acetaminophen (TYLENOL) tablet 1,000 mg Start: 11-10-2021 take 2 tablets by mo [facility] every eight hours Acetaminophen 500 mg Tablet [...] Status: Ordered take 2 tablets by mo [facility] every eight hours Tylenol 8 Hour 650 MG 2 tablets as needed Orally every 8 hrs Active acetaminophen 325 mg / HYDROcodone bitartrate 7.5 mg oral tablet (20 sources) Opioid Agonist HYDROcodone-acet aminophen ([place]) 7.5-325 MG tablet Active amiodarone hydrochloride 200 mg oral tablet (20 sources) Antiarrhythmic Start : 01-30 End: 08-07 take 1 tablet by mouth once daily in the morning Amiodarone 200 mg tablet Active 200 MG PO Every morning January 31, 2024 12:00am Aspirin (20 sources) Platelet Aggregation Inhibitor, Nonsteroidal Anti-inflammatory Drug Start : 10-01 [id number] Medication aspirin aspirin 300 mg 10/01/2022 Active (Outside) Start: 11-10-2021 take 1 tablet by wendy once daily in the morning Aspirin (Aspirin [...] 10 mg tablet Discontinued 0 .ROUTE .COMPLEX 90 July 19, 2024 12:34pm October 17, 2024 [...] Start: 11-10-2021 take 2 tablets by mo ut once daily at bedtime Clonazepam 1 mg tablet Active 2 MG PO Daily at bedtime November 10, 2021 1:00am Start: 11-10-2021 End: 10-03-2024 clonazePAM (KlonoPIN) 1 MG t ablet Indications: PLMD (periodic limb movement disorder) 1-2 tablet at bedtime 180 tablet 10/03/2024 Active Start: 09-24-2019 take 1 tablet by wendy three times daily clonazepam 1 mg Tab [...] AREDS PO) Take by mouth. 0 Active Multivitamin-Paint als-Lutein (A Thru Z High Potency) tablet (12 sources) Start: 11-10-2021 take 1 tablet by mouth twice daily Multivitamin-Long Chain Quiller Tender als-Lutein (A Thru Z High Potency) tablet Active 1 TAB PO Twice daily November 10, 2021 12:00am Start: 11-10-2021 take 1 tablet by wendy th twice daily Ntynebulusna-Ssainqhj-Dosivl (A Thru Z H igh Potency) tablet Active 1 TAB PO Twice daily November 10, 2021 1:00am Start: 11-10-2021 take 1 tablet by wendy th once daily Tihpgxgczncy-Xjkxkbuu-Hmgbqi (A Thru Z H igh Potency) tablet Active 1 TAB PO Daily November 10, 2021 1:00am mupirocin 0.02 mg/mg topical ointment (20 sources) RNA Synthetase Inhibitor Antibacterial Start: 06-04-2024 mupirocin (Bactroban ) 2 % ointment 06/04/2024 Active Start: 06-04-2024 End: 10-17-2024 Mupirocin 2 % ointment Disco ntinued 1 APPLIC TOPICAL Twice daily June 04, 2024 12:00am October 17, 2024 3:59pm Xlyvxfkjurt-Kuwdvjqa-Rzmbxcn ac 1-0.5-0.075 % solution (7 sources) Start: 12-28-2024 Thwbyizlxkg-Qpvijlts-Lqebjcx ac 1-0.5-0.075 % solution Indications: Age-related nuclear cataract of both eyes Administer 1 drop into affected eye(s) in the morning and 1 drop at noon and 1 drop in the evening and 1 drop before bedtime. 10 mL 1 12/28/2024 Active primidone 250 mg oral tablet (1 source) Anti-e pilept ic Agent Start: 08-21-2022 51510 Medication omeprazole 20 mg capsule,delayed release omeprazole 20 mg capsule,delayed release 20 mg 08/21/2022 Active (Outside) therapeutic multivitamin-minerals tablet (7 sources) Start: 03-15-2022 take 1 tablet by mouth at bedtim e therapeutic multivitamin-minerals tablet Take 1 tablet by mouth at bedtime. 30 tablet 0 03/15/2022 Active traZODone hydrochloride 50 m g oral tablet (20 sources) Seroto eliza Rediyaa ke Colettei tor Start: 10-17-2024 take 1 [...] as needed take 2 tablets by mo [facility] every eight hours as needed Tylenol 8 [...] 11:19am Start: 11-28-2023 take 1 capsule by [facility] three times daily as needed benzonatate (Tessalon) [...] XL docusate sodium 50 mg / sennosides, fdc 8.6 mg oral tablet (1 source) Start: [...] 31, 2024 3:31pm 7.5mg on Sat. 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; Translations: [DETENTION CURRNT USE ANTICOAGULANTS] Onset: 3 Episodic Other aftercare (5 sources) Encounter for therapeutic drug level monitoring; Translations: [ENC THERAPEUTC DRUG LEVL MONITORING] Onset: 3 Episodic Other aftercare (1 source) shelter (current) 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; Translations: [DETENTION CURRENT USE OF ASPIRIN] Onset: 3 Episodic Other aftercare (1 source) Other [facility] (current) drug therapy; Translations: [OTH COMMODITY DIRECTOR CURRENT DRUG THERAPY] Onset: 3 Episodic Other and unspecified benign neoplasm (4 sources) Melanocytic nevus of trunk; Translations: [Melanocytic nevi of trunk] 06-19-2024 Episodic Other and unspecified benign neoplasm (2 sources) Melanocytic nevus of lower limb; Translations: [Melanocytic nevi of unspecified lower limb, including hip] 01-03-2025 Episodic Other circulatory disease (20 sources) Presence of other cardiac implants and grafts; Translations: [Other specified cardiac device in situ] Onset: 4 Resolved: 4 02-15-2024 Chronic Other circulatory disease (4 sources) Spider nevus; [...] sources) Repeated falls; Translations: [Repeated falls] Onset: 5 Episodic Other diseases of kidney and ureters [...] conditions (not mental disorders or infectious disease) (7 sources) Coag./bleeding tests abnormal; Translations: [Abnormal coagulation profile] Onset: 5 Episodic Comment on above: PSA: 2.15 - [...] Resolved: 4 02-15-2024 Chronic Nonspecific chest pain (20 sources) Chest pain; Translations: [Chest pain, unspecified] Onset: 4 Resolved: 5 04-03-2024 Episodic Osteoarthritis (20 sources) Osteoarthritis of right knee joint; Translations: [Unilateral primary osteoarthritis, right knee] Onset: 3 Resolved: 4 Chronic Other aftercare (1 source) Encounter for other plastic and reconstructive surgery following medical procedure or healed injury; Translations: [Encounter for other plastic and reconstructive surgery following medical procedure or healed injury] Onset: 4 Episodic Other connective tissue disease (20 sources) History of total knee arthroplasty; Translations: [Presence of right artificial knee joint] Onset: 2 Resolved: 4 Chronic Other eye disorders (20 sources) Dry eyes; [...] Value Interpretation Reference Range Facility Office Visiton 01-11-2025 Follow-up visit [id number] Amina Goncalves 1945 M Date Provider Department Center 01/11/2025 OLIVER RUELAS [facility] Rosalina [facility] Family History Problem Relation Age of Onset Cancer Mother Alcohol abuse Father Heart attack Other Family Status - Relation Status Age at Mother Father Brother Alive Other Level of Service:13364 [place] OFFICE/OUTPATIENT ESTABLISHED MOD MDM 30 MIN Normal [facility] No Panel Informationon 01-03 [facility] Ophthalmic OCT panelon 12-28 [facility] Right Eye Images reviewed and [...] fiber layer (NFL) thickness both eyes (OU). [facility] Radiology Study observation (narrative) [facility] Optical coherence tomography study reporton 12-28-2024 [facility] Radiology Study observation (narrative) [facility] US Eye+Orbit - bilateralon 0 12-28-2024 Diagnosis: Cataract both eyes (OU) Testing Indication: Performed for preop measurements in the determination of an intraocular lens (IOL) for both eyes (OU) Test Reliability: Good quality both eyes (OU) Interpretation: Good measurements for intraocular lens (IOL) calculation purposes. Calculation made for both eyes (OU). [facility] Radiology Study observation (narrative) [facility] GLUCOSE POCT GLUCOMETERSon 0 10-22-2024 COMMEMT1 Glu2: Cleaned Meter [facility] Glucose [Mass/Vol] 157 mg/dL [facility] Comment on above: Random Glucose Refer ence Range is dependent on time and content of last meal. Glucose of more than 200 mg/dL in a nonstressed, ambulatory subject supports the diagnosis of Diabetes Mellitus. [facility] COMMEMT1 Glu2: Cleaned Meter [facility] Glucose [Mass/Vol] 164 mg/dL [facility] Comment on above: Random Glucose Refer ence Range is dependent on time and content of last meal. Glucose of more than 200 mg/dL in a nonstressed, ambulatory subject supports the diagnosis of Diabetes Mellitus. [facility] Glucose Glucometer (BldC) [M ass/Vol]Ordered By: Augustine Freitas on 10-22-2024 Glucose [Mass/Vol] Capillary blood gluc ose measurement by glucometer (mass/volume) [facility] Comment on above: Random Glucose Refer ence Range is dependent on time and content of last meal. Glucose of more than 200 mg/dL in a nonstressed, ambulatory subject supports the diagnosis of Diabetes Mellitus. Glucose Poct Glucometerson 0 10-22-2024 Commemt1 Glu2: Cleaned Meter Normal [facility] Comment on above: Result Comment: PERF ORMED BY: [place] [address] PATHOLOGIST SPINNERET PERSON GUERDA ESQUIVEL M.D. Performed By: #### G LULS #### Point of Care testing , Glucose [Mass/Vol] 157 mg/dL Normal [facility] Comment on above: Result Comment: [place] om Glucose Reference Range is dependent on time and content of last meal. Glucose of more than 200 mg/dL in a nonstressed, ambulatory subject supports the diagnosis of Diabetes Mellitus. Performed By: #### G LULS #### Point of Care testing , Commemt1 Glu2: Cleaned Meter Normal [facility] Comment on above: Result Comment: PERF ORMED BY: [place] [address] PATHOLOGIST SPINNERET PERSON GUERDA ESQUIVEL M.D. Performed By: #### G LULS #### Point of Care testing , Glucose [Mass/Vol] 164 mg/dL Normal [facility] Comment on above: Result Comment: [place] om Glucose Reference Range is dependent on time and content of last meal. Glucose of more than 200 mg/dL in a nonstressed, ambulatory subject supports the diagnosis of Diabetes Mellitus. Performed By: #### G LULS #### Point of Care testing , No Panel InformationOrdered By: Augustine Freitas on 10-22-2024 Bedside Glucose Comment Glu2: cleaned meter [facility] Basic Metabolic Panelon 09-27 Anion gap [Moles/Vol] 13.1 mmol/L Normal 6.0-15.0 [facility] Comment on above: Performed By: #### C BC, BMP #### [address] Calcium [Mass/Vol] 9.0 mg/dL Normal 8.6-10.3 [facility] Comment on above: Result Comment: PERF ORMED BY: [place] [address] PATHOLOGIST SPINNERET PERSON GUERDA ESQUIVEL M.D. Performed By: #### C BC, BMP #### [address] Chloride [Moles/Vol] 103 mmol/L Normal 98-107 [facility] Comment on above: Performed By: #### C BC, BMP #### [place] [address] [place] CO2 [Moles/Vol] 30.3 mmol/L Normal 21.0-31.0 [facility] Comment on above: Performed By: #### C BC, BMP #### [address] Creatinine [Mass/Vol] 1.32 mg/dL High 0.70-1.30 [facility] Comment on above: Performed By: #### C BC, BMP #### [address] Estimated GFR 55.209 mL/Min Normal [facility] Comment on above: Performed By: #### C BC, BMP #### [address] Glucose [Mass/Vol] 175 mg/dL High 70-100 [facility] Comment on above: Result Comment: [place] Glucose Reference Range is dependent on time and content of last meal. Glucose of more than 200 mg/dL in a nonstressed, ambulatory subject supports the diagnosis of Diabetes Mellitus. ADA recommended reference range Performed By: #### C BC, BMP #### [place] [address] [place] Potassium [Moles/Vol] 4.4 mmol/L Normal 3.5-5.1 [facility] Comment on above: Performed By: #### C BC, BMP #### [place] [address] [place] Sodium [Moles/Vol] 142 mmol/L Normal 136-145 [facility] Comment on above: Performed By: #### C RAMYA, BMP #### [facility] [address] Urea nitrogen [Mass/Vol] 16 mg/dL Normal 7-25 [facility] Comment on above: Performed By: #### C RAMYA, BMP #### [facility] [address] [place] [id number] [facility] Basic metabolic 1998 panelon 10-17-2024 Anion gap [Moles/Vol] 13.1 mmol/L 6.0 - 15.0 meq/L [facility] Calcium [Mass/Vol] 9 mg/dL 8.6 - 10. 3 mg/dL [facility] Chloride [Moles/Vol] 103 mmol/L 98 - 10 7 mmol/L [facility] CO2 [Moles/Vol] 30.3 mmol/L 21.0 - 31.0 mmol/L [facility] Creatinine (U) [Mass/Vol] 1.32 mg/dL High 0.70 - 1.30 mg/dL [facility] GFR/1.73 sq M.predicted MDRD (S/P/Bld) [Vol rate/Area] 55.209 mL/min/{1.73_m2} mL/Min [facility] Glucose [Mass/Vol] 175 mg/dL High 70 - 100 mg/dL [facility] Comment on above: Random Glucose Refer ence Range is dependent on time and content of last meal. Glucose of more than 200 mg/dL in a nonstressed, ambulatory subject supports the diagnosis of Diabetes Mellitus. ADA recommended reference range Interpretation and review of laboratory results Abnormal [facility] Potassium [Moles/Vol] 4.4 mmol/L 3.5 - 5.1 mmol/L [facility] Sodium [Moles/Vol] 142 mmol/L 136 - 145 mmol/L [facility] Urea nitrogen [Mass/Vol] 16 mg/dL 7 - 25 mg/dL [facility] Basophils Auto (Bld) [#/Vol] Ordered By: Augustine Freitas on 10-17-2024 Basophils (Bld) [#/Vol] Automated basophil count 0.0-0.2 [facility] Basophils/100 WBC Auto (Bld) Ordered By: Augustine Freitas on 01-22-2025 Basophils/100 WBC (Bld) Automated basophil % . [facility] CBC W Auto Differential pane l (Bld)on 10-17-2024 Basophils (Bld) [#/Vol] 0 10*3/uL 0.0 - 0.2 10*3/uL [facility] Basophils/100 WBC Manual cnt (Syn fld) 0.5 % . [facility] Eosinophils (Bld) [#/Vol] 0.1 10*3/uL 0.0 - 0.45 10*3/uL [facility] Eosinophils/100 WBC Manual cnt (Syn fld) 2 % . [facility] Erythrocyte distribution width (RBC) [Ratio] 14.2 % 12.0 - 14.8 % [facility] Hematocrit (Bld) [Volume fraction] 43.9 % 38.8 - 50.0 % [facility] Hemoglobin (Bld) [Mass/Vol] 14.8 g/dL 13.0 - 17.0 g/dL [facility] Lymphocytes (Bld) [#/Vol] 1.5 10*3/uL 1.00 - 4.8 10*3/uL [facility] Lymphocytes/100 WBC Manual cnt (Syn fld) 28.9 % . [facility] MCH (RBC) [Entitic mass] 31.3 pg 27.5 - 35.2 pg [facility] MCHC (RBC) [Mass/Vol] 33.6 g/dL 32.5 - 35.6 g/dL [facility] MCV (RBC) [Entitic vol] 93.1 fL 83.5 - 101 fL [facility] Monocytes (Bld) [#/Vol] 0.5 10*3/uL 0.0 - 0.8 10*3/uL [facility] Monocytes+Macrophages/ 100 WBC Manual cnt (Syn fld) 9.3 % . [facility] Neutrophils (Bld) [#/Vol] 3.2 10*3/uL 1.8 - 7.7 10*3/uL [facility] Neutrophils/100 WBC Manual cnt (Syn fld) 59.3 % . [facility] NRBC 0.1 /100{WBC} 0 - 0.5 /100{WBC} [facility] Platelet mean volume (Bld) [Entitic vol] 9.5 fL 6.6 - 10.1 fL [facility] Platelets (Bld) [#/Vol] 160 10*3/uL 150 - 450 10*3/uL [facility] RBC LM.HPF (Urine sed) [#/Area] 4.72 10*6/uL 3.90 - 5.60 10*6/uL [facility] WBC (Bld) [#/Vol] 5.3 10*3/uL 4.1 - 10.5 10*3/uL [facility] WBC LM.HPF (Urine sed) [#/Area] 5.3 10*3/uL 4.1 - 10.5 10*3/uL [facility] Calcium [Mass/volume] in Ser um or PlasmaOrdered By: Augustine Freitas on 10-17-2024 Calcium [Mass/Vol] Calcium [Mass/volume ] in Serum or Plasma 8.6-10.3 [facility] Carbon dioxide, total [Moles /volume] in Serum or PlasmaOrdered By: Augustine Freitas on 10-17-2024 CO2 [Moles/Vol] Carbon dioxide, tota l [Moles/volume] in Serum or Plasma 21.0-31.0 [facility] Chloride [Moles/volume] in S marnie or PlasmaOrdered By: Augustine Freitas on 10-17-2024 Chloride [Moles/Vol] Chloride [Moles/vol ume] in Serum or Plasma 98-107 [facility] Complete Blood Count Auto Di ffon 10-17-2024 Basophils (Bld) [#/Vol] 0.0 10*3/uL Normal 0.0-0.2 [facility] Comment on above: Result Comment: PERF ORMED BY: [place] [id number] PATHOLOGIST SPINNERET PERSON GUERDA ESQUIVEL M.D. Performed By: #### C BC, BMP #### [facility] [address] [place] [address] [place] Basophils/100 WBC (Bld) 0.5 % Normal . [facility] Comment on above: Performed By: #### C BC, BMP #### [facility] [address] [place] [address] [place] Eosinophils (Bld) [#/Vol] 0.1 10*3/uL Normal 0.0-0.45 [facility] Comment on above: Performed By: #### C BC, BMP #### [address] Eosinophils/100 WBC (Bld) 2.0 % Normal . [facility] Comment on above: Performed By: #### C BC, BMP #### [address] Erythrocyte distribution width (RBC) [Ratio] 14.2 % Normal 12.0-14.8 [facility] Comment on above: Performed By: #### C BC, BMP #### [address] Hematocrit (Bld) [Volume fraction] 43.9 % Normal 38.8-50.0 [facility] Comment on above: Performed By: #### C BC, BMP #### [address] Hemoglobin (Bld) [Mass/Vol] 14.8 g/dL Normal 13.0-17.0 [facility] Comment on above: Performed By: #### C BC, BMP #### [address] Lymphocytes (Bld) [#/Vol] 1.5 10*3/uL Normal 1.00-4.8 [facility] Comment on above: Performed By: #### C BC, BMP #### [place] [address] [place] Lymphocytes/100 WBC (Bld) 28.9 % Normal . [facility] Comment on above: Performed By: #### C BC, BMP #### [address] MCH (RBC) [Entitic mass] 31.3 pg Normal 27.5-35.2 [facility] Comment on above: Performed By: #### C BC, BMP #### [address] MCV (RBC) [Entitic vol] 93.1 fL Normal 83.5-101 [facility] Comment on above: Performed By: #### C BC, BMP #### [facility] [address] Mean Corpuscular HGB Conc 33.6 g/dL Normal 32.5-35.6 [facility] Comment on above: Performed By: #### C BC, BMP #### [facility] [address] [place] [address] [place] Monocytes (Bld) [#/Vol] 0.5 10*3/uL Normal 0.0-0.8 [facility] Comment on above: Performed By: #### C BC, BMP #### [facility] [address] [place] [address] [place] Monocytes/100 WBC (Bld) 9.3 % Normal . [facility] Comment on above: Performed By: #### C BC, BMP #### [facility] [address] [place] [address] [place] Neutrophils (Bld) [#/Vol] 3.2 10*3/uL Normal 1.8-7.7 [facility] Comment on above: Performed By: #### C BC, BMP #### [facility] [address] [place] [address] [place] Neutrophils/100 WBC (Bld) 59.3 % Normal . [facility] Comment on above: Performed By: #### C BC, BMP #### [facility] [address] [place] [address] [place] NRBC% 0.1 /100{WBC} Normal 0-0.5 [facility] Comment on above: Performed By: #### C BC, BMP #### [facility] [address] [place] [address] [place] Platelet mean volume (Bld) [Entitic vol] 9.5 fL Normal 6.6-10.1 [facility] Comment on above: Performed By: #### C BC, BMP #### [facility] [address] Platelets (Bld) [#/Vol] 160 10*3/uL Normal 150-450 [facility] Comment on above: Performed By: #### C BC, BMP #### [facility] [address] [place] [id number] [place] RBC (Bld) [#/Vol] 4.72 10*6/uL Normal 3.90-5.60 [facility] Comment on above: Performed By: #### C BC, BMP #### [facility] [address] [place] [id number] [place] WBC (Bld) [#/Vol] 5.3 10*3/uL Normal 4.1-10.5 [facility] Comment on above: Performed By: #### C BC, BMP #### [facility] [address] Creatinine [Mass/volume] in Serum or PlasmaOrdered By: Augustine Freitas on 10-17-2024 Creatinine [Mass/Vol] Creatinine [Mass/v olume] in Serum or Plasma High 0.70-1.30 [facility] ECG 12 lead ECGon 10-17-2024 ECG 12 lead ECG [facility] [place] [address] [place] [address] Electrocardiograph Report Signed Patient: Tito Goncalves MR#: [id number] : 1945 Acct:[id number] Age/Sex: 79 / M ADM Date: 10/17/24 Loc: Room: Type: [facility] Attending Dr: Augustine Freitas DO Ordering [...] in Lateral leads Confirmed by Oliver Rubio ([id number]) on 10/17/2024 4:52:19 PM Referred By: Electronically Signed By: Oliver Rubio Transcribed By: MUS Signed By Oliver Rubio MD 10/17/24 1652 Normal [facility] Eosinophils Auto (Bld) [#/Vo l]Ordered By: Augustine Freitas on 10-17-2024 Eosinophils (Bld) [#/Vol] Automated eosinophil count 0.0-0.45 [facility] Eosinophils/100 WBC Auto (Bl d)Ordered By: Augustine Freitas on 10-17-2024 Eosinophils/100 WBC (Bld) Automated eosinophil % . [facility] Erythrocyte distribution wid th Auto (RBC) [Ratio]Ordered By: Augustine Freitas on 10-17-2024 Erythrocyte distribution width (RBC) [Ratio] Erythrocyte distribution width [Ratio] by Automated count 12.0-14.8 [facility] Glucose [Mass/volume] in Ser um or PlasmaOrdered By: Augustine Freitas on 10-17-2024 Glucose [Mass/Vol] Glucose [Mass/volume ] in Serum or Plasma High 70-100 [facility] Comment on above: ADA recommended refe rence rangeRandom Glucose Reference Range is dependent on time and content of last meal. Glucose of more than 200 mg/dL in a nonstressed, ambulatory subject supports the diagnosis of Diabetes Mellitus. Hematocrit Auto (Bld) [Volum e fraction]Ordered By: Augustine Freitas on 10-17-2024 Hematocrit (Bld) [Volume fraction] Hematocrit [Volume Fraction] of Blood by Automated count 38.8-50.0 [facility] Hemoglobin [Mass/volume] in BloodOrdered By: Augustine Freitas on 10-17-2024 Hemoglobin (Bld) [Mass/Vol] Hemoglobin [Mass/volume] in Blood 13.0-17.0 [facility] Leukocytes [#/volume] correc iván for nucleated erythrocytes in Blood by Automated counOrdered By: Augustine Freitas on 10-17-2024 WBC corrected for nucl RBC Auto (Bld) [#/Vol] Leukocytes [#/volume] corrected for nucleated erythrocytes in Blood by Automated coun 4.1-10.5 [facility] Lymphocytes Auto (Bld) [#/Vo l]Ordered By: Augustine Freitas on 10-17-2024 Lymphocytes (Bld) [#/Vol] Lymphocytes [#/volume] in Blood by Automated count 1.00-4.8 [facility] Lymphocytes/100 WBC Auto (Bl d)Ordered By: Augustine Freitas on 10-17-2024 Lymphocytes/100 WBC (Bld) Lymphocytes/100 leukocytes in Blood by Automated count . [facility] MCH Auto (RBC) [Entitic mass ]Ordered By: Augustine Freitas on 10-17-2024 MCH (RBC) [Entitic mass] MCH [Entitic mass] by Automated count 27.5-35.2 [facility] MCHC Auto (RBC) [Mass/Vol]Or dered By: Augustine Freitas on 10-17-2024 MCHC (RBC) [Mass/Vol] MCHC [Mass/volume] by Automated count 32.5-35.6 [facility] MCV Auto (RBC) [Entitic vol] Ordered By: Augustine Freitas on 10-17-2024 MCV (RBC) [Entitic vol] MCV [Entitic volume] by Automated count 83.5-101 [facility] Monocytes Auto (Bld) [#/Vol] Ordered By: Augustine Freitas on 10-17-2024 Monocytes (Bld) [#/Vol] Automated blood monocyte count 0.0-0.8 [facility] Monocytes/100 WBC Auto (Bld) Ordered By: Augustine Freitas on 10-17-2024 Monocytes/100 WBC (Bld) Automated monocyte % . [facility] Neutrophils Auto (Bld) [#/Vo l]Ordered By: Augustine Freitas on 10-17-2024 Neutrophils (Bld) [#/Vol] Neutrophils [#/volume] in Blood by Automated count 1.8-7.7 [facility] Neutrophils/100 WBC Auto (Bl d)Ordered By: Augustine Freitas on 10-17-2024 Neutrophils/100 WBC (Bld) Automated neutrophil % . [facility] No Panel InformationOrdered By: Augustine Freitas on 10-17-2024 Estimated GFR (CKD-EPI) 55.209 mL/Min [facility] Creatinine Clearance (Chem N/A [facility] Nucleated erythrocytes [Pres ence] in Blood by Automated countOrdered By: Augustine Freitas on 10-17-2024 Nucleated RBC Auto Ql (Bld) Nucleated erythrocytes [Presence] in Blood by Automated count 0-0.5 [facility] Platelet mean volume Auto (B ld) [Entitic vol]Ordered By: Augustine Freitas on 10-17-2024 Platelet mean volume (Bld) [Entitic vol] Platelet mean volume [Entitic volume] in Blood by Automated count 6.6-10.1 [facility] Platelets Auto (Bld) [#/Vol] Ordered By: Augustine Freitas on 10-17-2024 Platelets (Bld) [#/Vol] Platelets [#/volume] in Blood by Automated count 150-450 [facility] Potassium [Moles/volume] in Serum or PlasmaOrdered By: Augustine Freitas on 10-17-2024 Potassium [Moles/Vol] Potassium [Moles/v olume] in Serum or Plasma 3.5-5.1 [facility] RBC Auto (Bld) [#/Vol]Ordere d By: Augustine Freitas on 10-17-2024 RBC (Bld) [#/Vol] Erythrocytes [#/volu me] in Blood by Automated count 3.90-5.60 [facility] Serum or plasma anion gap de terminationOrdered By: Augustine Freitas on 10-17-2024 Anion gap [Moles/Vol] Serum or plasma an ion gap determination 6.0-15.0 [facility] Sodium [Moles/volume] in Ser um or PlasmaOrdered By: Augustine Freitas on 10-17-2024 Sodium [Moles/Vol] Sodium [Moles/volume ] in Serum or Plasma 136-145 [facility] Urea nitrogen [Mass/volume] in Serum or PlasmaOrdered By: Augustine Freitas on 10-17-2024 Urea nitrogen [Mass/Vol] Urea nitrogen [Mass/volume] in Serum or Plasma 7-25 [facility] WBC Auto (Bld) [#/Vol]Ordere d By: Augustine Freitas on 10-17-2024 WBC (Bld) [#/Vol] Leukocytes [#/volume ] in Blood by Automated count 4.1-10.5 [facility] No Panel Informationon 10-16 Consent obtained: andre ferrer (The rationale for Mohs as well as the risks, benefits, and alternatives. The risks of infection, scarring, bleeding, prolonged wound healing, incomplete removal, allergy to anesthesia or meds, nerve injury, and recurrence were addressed.) [place] Protocol: Procedure explained and questions answered to [...] sodium bicarbonate Procedure Details: Biopsy accession number: [id number] Biopsy lab: [facility] Date of biopsy: 10/04/2024 Frozen section biopsy [...] Number of bl (more content not included)... [facility] No Panel Informationon 10-04 Type [...] taken Amount of lidocaine used: 0.4 cc [facility] No Panel InformationOrdered By: Karen Mckinnon on 10-04-2024 [facility] Optical coherence tomography study reporton 09-07-2024 [facility] Radiology Study observation (narrative) [facility] Basophils Auto (Bld) [#/Vol] on 08-14-2024 Basophils (Bld) [#/Vol] Automated basophil count 0.0-0.1 [facility] Basophils/100 WBC Auto (Bld) on 08-14-2024 Basophils/100 WBC (Bld) Automated basophil % 0.2-2.0 [facility] Eosinophils/100 WBC Auto (Bl d)on 08-14-2024 Eosinophils/100 WBC (Bld) Automated eosinophil % 0.9-7.0 [facility] Erythrocyte distribution wid th Auto (RBC) [Ratio]on 08-14-2024 Erythrocyte distribution width (RBC) [Ratio] Erythrocyte distribution width [Ratio] by Automated count High 11.0-15.0 [facility] Estimated glomerular filtrat ion rate (GFR) non- Americanon 08-14-2024 GFR/1.73 sq M.predicted among non-blacks MDRD (S/P/Bld) [Vol rate/Area] Estimated glomerular filtration rate (GFR) non- Low >=60 mL/min/1.7 3m 2 [facility] Globulin Calc (S) [Mass/Vol] on 08-14-2024 Globulin (S) [Mass/Vol] Serum globulin measurement by calculation (mass/volume) [facility] Glucose mean value [Mass/vol ume] in Blood Estimated from glycated hemoglobinon 08-14-2024 Average glucose Estimated from glycated hemoglobin (Bld) [Mass/Vol] Glucose mean value [Mass/volume] in Blood Estimated from glycated hemoglobin [facility] Hematocrit Auto (Bld) [Volum e fraction]on 08-14-2024 Hematocrit (Bld) [Volume fraction] Hematocrit [Volume Fraction] of Blood by Automated count 42.0-54.0 [facility] Hemoglobin [Mass/volume] in Bloodon 08-14-2024 Hemoglobin (Bld) [Mass/Vol] Hemoglobin [Mass/volume] in Blood 14.0-18.0 [facility] Laboratory - Chemistry and C hemistry - challengeon 08-14-2024 Albumin [Mass/Vol] 3.6 g/dL 3.4-5.0 [facility] ALP [Catalytic activity/Vol] 78 U/L 46-116 [facility] ALT [Catalytic activity/Vol] 25 U/L 16-63 [facility] AST [Catalytic activity/Vol] 16 U/L 15-37 [facility] Bilirubin [Mass/Vol] 0.7 mg/dL 0.2-1.0 [facility] Calcium [Mass/Vol] 8.8 mg/dL 8.5-10.1 [facility] Chloride [Moles/Vol] 104 mmol/L 98-107 [facility] CO2 [Moles/Vol] 28.7 mmol/L 21.0-32.0 [facility] Creatinine [Mass/Vol] 1.66 mg/dL High 0.70-1.30 [facility] GFR/1.73 sq M.predicted MDRD (S/P/Bld) [Vol rate/Area] 49 mL/min/{1.73_m2} Low >=60 mL/min/1.7 3m 2 [facility] Glucose [Mass/Vol] 143 mg/dL High 74-106 [facility] Potassium [Moles/Vol] 4.5 mmol/L 3.5-5.1 [facility] Protein [Mass/Vol] 6.7 g/dL 6.4-8.2 [facility] Sodium [Moles/Vol] 142 mmol/L 136-145 [facility] Urea nitrogen [Mass/Vol] 24.0 mg/dL High 7.0-18.0 [facility] Urea nitrogen/Creatinine [Mass ratio] 14.5 mg/mg [facility] Laboratory - Hematology and Cell countson 08-14-2024 HbA1c (Bld) [Mass fraction] 7.2 % High 4.5-6.2 [facility] Comment on above: ADA RECOMMENDED LIMI T 4.0 - 6.0ADA THERAPEUTIC TARGET < 7.0ACTION SUGGESTED> 7.0 Immature granulocytes/100 WBC (Bld) 0.0 % 0.0-0.5 [facility] Leukocytes [#/volume] correc iván for nucleated erythrocytes in Blood by Automated counon 08-14-2024 WBC corrected for nucl RBC Auto (Bld) [#/Vol] Leukocytes [#/volume] corrected for nucleated erythrocytes in Blood by Automated coun 4.0-11.0 [facility] Lymphocytes Auto (Bld) [#/Vo l]on 08-14-2024 Lymphocytes (Bld) [#/Vol] Lymphocytes [#/volume] in Blood by Automated count 1.2-3.8 [facility] Lymphocytes/100 WBC Auto (Bl d)on 08-14-2024 Lymphocytes/100 WBC (Bld) Lymphocytes/100 leukocytes in Blood by Automated count 20.5-60.0 [facility] MCH Auto (RBC) [Entitic mass ]on 08-14-2024 MCH (RBC) [Entitic mass] MCH [Entitic mass] by Automated count 25.9-34.0 [facility] MCHC Auto (RBC) [Mass/Vol]on 08-14-2024 MCHC (RBC) [Mass/Vol] MCHC [Mass/volume] by Automated count 29.9-35.2 [facility] MCV Auto (RBC) [Entitic vol] on 08-14-2024 MCV (RBC) [Entitic vol] MCV [Entitic volume] by Automated count 80.0-94.0 [facility] Microalbumin [Mass/volume] i n Urineon 08-14-2024 Albumin DL <= 20 mg/L (U) [Mass/Vol] Microalbumin [Mass/volume] in Urine <=30.0 [facility] Monocytes Auto (Bld) [#/Vol] on 08-14-2024 Monocytes (Bld) [#/Vol] Automated blood monocyte count 0.3-0.8 [facility] Monocytes/100 WBC Auto (Bld) on 08-14-2024 Monocytes/100 WBC (Bld) Automated monocyte % 1.7-12.0 [facility] Neutrophils Auto (Bld) [#/Vo l]on 08-14-2024 Neutrophils (Bld) [#/Vol] Neutrophils [#/volume] in Blood by Automated count 1.4-6.5 [facility] Neutrophils/100 WBC Auto (Bl d)on 08-14-2024 Neutrophils/100 WBC (Bld) Automated neutrophil % 43.0-75.0 [facility] No Panel Informationon 08-14 Eosinophils # (Auto) 0.1 10 3/uL 0.0-0.7 [facility] Immature Granulocyte # (Auto) 0.00 10 3/uL 0.00-0.03 [facility] Prostate Specific Antigen Screen 1.77 ng/mL <=4.00 [facility] Platelet mean volume Auto (B ld) [Entitic vol]on 08-14-2024 Platelet mean volume (Bld) [Entitic vol] Platelet mean volume [Entitic volume] in Blood by Automated count 9.5-13.5 [facility] Platelets Auto (Bld) [#/Vol] on 08-14-2024 Platelets (Bld) [#/Vol] Platelets [#/volume] in Blood by Automated count 150-450 [facility] RBC Auto (Bld) [#/Vol]on RBC (Bld) [#/Vol] Erythrocytes [#/volu me] in Blood by Automated count Low 4.70-6.10 [facility] Serum or plasma albumin/glob ulin mass ratioon 08-14-2024 Albumin/Globulin [Mass ratio] Serum or plasma albumin/globulin mass ratio [facility] Serum or plasma anion gap de terminationon 08-14-2024 Anion gap [Moles/Vol] Serum or plasma an ion gap determination [facility] Office Visiton 07-11-2024 Follow-up visit [id number] Amina Goncalves james Blackman 1945 M Date Provider Department Center 07/11/2024 [facility] Family History Problem Relation Age of Onset Cancer Mother Heart attack Other Family Status - Relation Status Age at Mother Other Level of Service:13262 [place] OFFICE/OUTPATIENT ESTABLISHED LOW MDM 20 MIN Normal [facility] Basophils Auto (Bld) [#/Vol] on 06-27-2024 Basophils (Bld) [#/Vol] 0.0 10 3/uL 0.0-0.1 [facility] Basophils/100 WBC Auto (Bld) on 06-27-2024 Basophils/100 WBC (Bld) 0.4 % 0.2-2.0 [facility] Eosinophils/100 WBC Auto (Bl d)on 06-27-2024 Eosinophils/100 WBC (Bld) 2.0 % 0.9-7.0 [facility] Erythrocyte distribution wid th Auto (RBC) [Ratio]on 06-27-2024 Erythrocyte distribution width (RBC) [Ratio] 16.6 % High 11.0-15.0 [facility] Hematocrit Auto (Bld) [Volum e fraction]on 06-27-2024 Hematocrit (Bld) [Volume fraction] 38.5 % Low 42.0-54.0 [facility] Hemoglobin [Mass/volume] in Bloodon 06-27-2024 Hemoglobin (Bld) [Mass/Vol] 12.5 g/dL Low 14.0-18.0 [facility] Iron binding capacity [Mass/ volume] in Serum or Plasmaon 06-27-2024 Iron binding capacity [Mass/Vol] 314.0 ug/dL 250.0-450. 0 [facility] Iron saturation [Mass Fracti on] in Serum or Plasmaon 06-27-2024 Iron saturation [Mass fraction] 21.3 % [facility] - Chemistry and C hemistry - challengeon 06-27-2024 Cobalamin (Vitamin B12) [Mass/Vol] 640 pg/mL 232-1245 [facility] Comment on above: Performed at: [facility] [address] [id number] Director: Erasmo Mack PhD, Phone: [phone] Ferritin [Mass/Vol] 25.0 ng/mL Low 26.0-388.0 [facility] Iron [Mass/Vol] 67.0 ug/dL 65.0-175.0 [facility] - Hematology and Cell countson 06-27-2024 Immature granulocytes/100 WBC (Bld) 0.4 % 0.0-0.5 [facility] Leukocytes [#/volume] correc iván for nucleated erythrocytes in Blood by Automated counon 06-27-2024 WBC corrected for nucl RBC Auto (Bld) [#/Vol] 5.0 10 3/uL 4.0-11.0 [facility] Lymphocytes Auto (Bld) [#/Vo l]on 06-27-2024 Lymphocytes (Bld) [#/Vol] 1.4 10 3/uL 1.2-3.8 [facility] Lymphocytes/100 WBC Auto (Bl d)on 06-27-2024 Lymphocytes/100 WBC (Bld) 27.8 % 20.5-60.0 [facility] MCH Auto (RBC) [Entitic mass ]on 06-27-2024 MCH (RBC) [Entitic mass] 28.8 pg 25.9-34.0 [facility] MCHC Auto (RBC) [Mass/Vol]on 06-27-2024 MCHC (RBC) [Mass/Vol] 32.5 g/dL 29.9-35.2 [facility] MCV Auto (RBC) [Entitic vol] on 06-27-2024 MCV (RBC) [Entitic vol] 88.7 fL 80.0-94.0 [facility] Monocytes Auto (Bld) [#/Vol] on 06-27-2024 Monocytes (Bld) [#/Vol] 0.4 10 3/uL 0.3-0.8 [facility] Monocytes/100 WBC Auto (Bld) on 06-27-2024 Monocytes/100 WBC (Bld) 8.3 % 1.7-12.0 [facility] Neutrophils Auto (Bld) [#/Vo l]on 06-27-2024 Neutrophils (Bld) [#/Vol] 3.1 10 3/uL 1.4-6.5 [facility] Neutrophils/100 WBC Auto (Bl d)on 06-27-2024 Neutrophils/100 WBC (Bld) 61.1 % 43.0-75.0 [facility] No Panel Informationon 06-27 Eosinophils # (Auto) 0.1 10 3/uL 0.0-0.7 [facility] Folate 22.10 ng/mL 8.60-58.90 [facility] Immature Granulocyte # (Auto) 0.02 10 3/uL 0.00-0.03 [facility] Platelet mean volume Auto (B ld) [Entitic vol]on 06-27-2024 Platelet mean volume (Bld) [Entitic vol] 11.2 fL 9.5-13.5 [facility] Platelets Auto (Bld) [#/Vol] on 06-27-2024 Platelets (Bld) [#/Vol] 162 10 3/uL 150-450 [facility] RBC Auto (Bld) [#/Vol]on RBC (Bld) [#/Vol] 4.34 10 6/uL Low 4.70-6.10 [facility] No Panel Informationon 06-19 [facility] Optical coherence tomography study reporton 06-08-2024 [facility] Radiology Study observation (narrative) [facility] Basophils Auto (Bld) [#/Vol] on 04-18-2024 Basophils (Bld) [#/Vol] 0.0 10 3/uL 0.0-0.1 [facility] Basophils/100 WBC Auto (Bld) on 04-18-2024 Basophils/100 WBC (Bld) 0.5 % 0.2-2.0 [facility] Eosinophils/100 WBC Auto (Bl d)on 04-18-2024 Eosinophils/100 WBC (Bld) 4.3 % 0.9-7.0 [facility] Erythrocyte distribution wid th Auto (RBC) [Ratio]on 04-18-2024 Erythrocyte distribution width (RBC) [Ratio] 14.0 % 11.0-15.0 [facility] Hematocrit Auto (Bld) [Volum e fraction]on 04-18-2024 Hematocrit (Bld) [Volume fraction] 36.8 % Low 42.0-54.0 [facility] Hemoglobin [Mass/volume] in Bloodon 04-18-2024 Hemoglobin (Bld) [Mass/Vol] 11.6 g/dL Low 14.0-18.0 [facility] Iron binding capacity [Mass/ volume] in Serum or Plasmaon 04-18-2024 Iron binding capacity [Mass/Vol] 339.0 ug/dL 250.0-450. 0 [facility] Iron saturation [Mass Fracti on] in Serum or Plasmaon 04-18-2024 Iron saturation [Mass fraction] 11.8 % [facility] - Chemistry and C hemistry - challengeon 04-18-2024 Cobalamin (Vitamin B12) [Mass/Vol] 594.0 pg/mL 193.0-986. 0 [facility] Ferritin [Mass/Vol] 20.0 ng/mL Low 26.0-388.0 [facility] Iron [Mass/Vol] 40.0 ug/dL Low 65.0-175.0 [facility] - Hematology and Cell countson 04-18-2024 Immature granulocytes/100 WBC (Bld) 0.0 % 0.0-0.5 [facility] Leukocytes [#/volume] correc iván for nucleated erythrocytes in Blood by Automated counon 04-18-2024 WBC corrected for nucl RBC Auto (Bld) [#/Vol] 4.4 10 3/uL 4.0-11.0 [facility] Lymphocytes Auto (Bld) [#/Vo l]on 04-18-2024 Lymphocytes (Bld) [#/Vol] 1.5 10 3/uL 1.2-3.8 [facility] Lymphocytes/100 WBC Auto (Bl d)on 04-18-2024 Lymphocytes/100 WBC (Bld) 34.1 % 20.5-60.0 [facility] MCH Auto (RBC) [Entitic mass ]on 04-18-2024 MCH (RBC) [Entitic mass] 27.5 pg 25.9-34.0 [facility] MCHC Auto (RBC) [Mass/Vol]on 04-18-2024 MCHC (RBC) [Mass/Vol] 31.5 g/dL 29.9-35.2 [facility] MCV Auto (RBC) [Entitic vol] on 04-18-2024 MCV (RBC) [Entitic vol] 87.2 fL 80.0-94.0 [facility] Monocytes Auto (Bld) [#/Vol] on 04-18-2024 Monocytes (Bld) [#/Vol] 0.4 10 3/uL 0.3-0.8 [facility] Monocytes/100 WBC Auto (Bld) on 04-18-2024 Monocytes/100 WBC (Bld) 9.4 % 1.7-12.0 [facility] Neutrophils Auto (Bld) [#/Vo l]on 04-18-2024 Neutrophils (Bld) [#/Vol] 2.3 10 3/uL 1.4-6.5 [facility] Neutrophils/100 WBC Auto (Bl d)on 04-18-2024 Neutrophils/100 WBC (Bld) 51.7 % 43.0-75.0 [facility] No Panel Informationon 04-18 Eosinophils # (Auto) 0.2 10 3/uL 0.0-0.7 [facility] Immature Granulocyte # (Auto) 0.00 10 3/uL 0.00-0.03 [facility] Platelet mean volume Auto (B ld) [Entitic vol]on 04-18-2024 Platelet mean volume (Bld) [Entitic vol] 11.1 fL 9.5-13.5 [facility] Platelets Auto (Bld) [#/Vol] on 04-18-2024 Platelets (Bld) [#/Vol] 185 10 3/uL 150-450 [facility] RBC Auto (Bld) [#/Vol]on RBC (Bld) [#/Vol] 4.22 10 6/uL Low 4.70-6.10 [facility] Office Visiton 04-12-2024 Follow-up visit [id number] IvannaAmina Blackman 1945 M Date Provider Department Center 04/12/2024 Daniel-MAGGY MURPHY CARD Rosalina Satniago Family History Problem Relation Age of Onset Cancer Mother Heart attack Other Family Status - Relation Status Age at Mother Other Level of Service:34643 SD OFFICE/OUTPATIENT ESTABLISHED MOD MDM 30 MIN Normal [facility] Basophils Auto (Bld) [#/Vol] on 04-02-2024 Basophils (Bld) [#/Vol] 0.0 10 3/uL 0.0-0.1 [facility] Basophils/100 WBC Auto (Bld) on 04-02-2024 Basophils/100 WBC (Bld) 0.6 % 0.2-2.0 [facility] Eosinophils/100 WBC Auto (Bl d)on 04-02-2024 Eosinophils/100 WBC (Bld) 3.3 % 0.9-7.0 [facility] Erythrocyte distribution wid th Auto (RBC) [Ratio]on 04-02-2024 Erythrocyte distribution width (RBC) [Ratio] 13.9 % 11.0-15.0 [facility] Estimated glomerular filtrat ion rate (GFR) non- Americanon 04-02-2024 GFR/1.73 sq M.predicted among non-blacks MDRD (S/P/Bld) [Vol rate/Area] 49 mL/min/{1.73_m2} Low >=60 [facility] Globulin Calc (S) [Mass/Vol] on 04-02-2024 Globulin (S) [Mass/Vol] 3.0 g/dL [facility] Hematocrit Auto (Bld) [Volum e fraction]on 04-02-2024 Hematocrit (Bld) [Volume fraction] 32.6 % Low 42.0-54.0 [facility] Hemoglobin [Mass/volume] in Bloodon 04-02-2024 Hemoglobin (Bld) [Mass/Vol] 10.3 g/dL Low 14.0-18.0 [facility] Laboratory - Chemistry and C hemistry - challengeon 04-02-2024 Albumin [Mass/Vol] 2.8 g/dL Low 3.4-5.0 [facility] ALP [Catalytic activity/Vol] 76 U/L 46-116 [facility] ALT [Catalytic activity/Vol] 14 U/L Low 16-63 [facility] AST [Catalytic activity/Vol] 11 U/L Low 15-37 [facility] Bilirubin [Mass/Vol] 0.4 mg/dL 0.2-1.0 [facility] Calcium [Mass/Vol] 8.4 mg/dL Low 8.5-10.1 [facility] Chloride [Moles/Vol] 107 mmol/L 98-107 [facility] CO2 [Moles/Vol] 28.1 mmol/L 21.0-32.0 [facility] Creatinine [Mass/Vol] 1.40 mg/dL High 0.70-1.30 [facility] GFR/1.73 sq M.predicted MDRD (S/P/Bld) [Vol rate/Area] 59 mL/min/{1.73_m2} Low >=60 [facility] Glucose [Mass/Vol] 141 mg/dL High 74-106 [facility] Potassium [Moles/Vol] 4.3 mmol/L 3.5-5.1 [facility] Protein [Mass/Vol] 5.8 g/dL Low 6.4-8.2 [facility] Sodium [Moles/Vol] 142 mmol/L 136-145 [facility] Urea nitrogen [Mass/Vol] 16.0 mg/dL 7.0-18.0 [facility] Urea nitrogen/Creatinine [Mass ratio] 11.4 mg/mg [facility] Laboratory - Hematology and Cell countson 04-02-2024 Immature granulocytes/100 WBC (Bld) 0.2 % 0.0-0.5 [facility] Leukocytes [#/volume] correc iván for nucleated erythrocytes in Blood by Automated counon 04-02-2024 WBC corrected for nucl RBC Auto (Bld) [#/Vol] 5.2 10 3/uL 4.0-11.0 [facility] Lymphocytes Auto (Bld) [#/Vo l]on 04-02-2024 Lymphocytes (Bld) [#/Vol] 1.7 10 3/uL 1.2-3.8 [facility] Lymphocytes/100 WBC Auto (Bl d)on 04-02-2024 Lymphocytes/100 WBC (Bld) 32.6 % 20.5-60.0 [facility] MCH Auto (RBC) [Entitic mass ]on 04-02-2024 MCH (RBC) [Entitic mass] 27.8 pg 25.9-34.0 [facility] MCHC Auto (RBC) [Mass/Vol]on 04-02-2024 MCHC (RBC) [Mass/Vol] 31.6 g/dL 29.9-35.2 [facility] MCV Auto (RBC) [Entitic vol] on 04-02-2024 MCV (RBC) [Entitic vol] 87.9 fL 80.0-94.0 [facility] Monocytes Auto (Bld) [#/Vol] on 04-02-2024 Monocytes (Bld) [#/Vol] 0.7 10 3/uL 0.3-0.8 [facility] Monocytes/100 WBC Auto (Bld) on 04-02-2024 Monocytes/100 WBC (Bld) 12.9 % High 1.7-12.0 [facility] Neutrophils Auto (Bld) [#/Vo l]on 04-02-2024 Neutrophils (Bld) [#/Vol] 2.6 10 3/uL 1.4-6.5 [facility] Neutrophils/100 WBC Auto (Bl d)on 04-02-2024 Neutrophils/100 WBC (Bld) 50.4 % 43.0-75.0 [facility] No Panel Informationon 04-02 Eosinophils # (Auto) 0.2 10 3/uL 0.0-0.7 [facility] Immature Granulocyte # (Auto) 0.01 10 3/uL 0.00-0.03 [facility] Troponin I High Sensitivity 7.8 pg/mL 4.0-76.1 [facility] Comment on above: CUT-OFF POINTS HAVE [...] volume (Bld) [Entitic vol] 12.5 fL 9.5-13.5 [facility] Platelets Auto (Bld) [#/Vol] on 04-02-2024 Platelets (Bld) [#/Vol] 139 10 3/uL Low 150-450 [facility] RBC Auto (Bld) [#/Vol]on RBC (Bld) [#/Vol] 3.71 10 6/uL Low 4.70-6.10 [facility] Serum or plasma albumin/glob ulin mass ratioon 04-02-2024 Albumin/Globulin [Mass ratio] 0.9 {ratio} [facility] Serum or plasma anion gap de terminationon 04-02-2024 Anion gap [Moles/Vol] 11.2 mmol[facility] Basophils Auto (Bld) [#/Vol] on 04-01-2024 Basophils (Bld) [#/Vol] 0.0 10 3/uL 0.0-0.1 [facility] Basophils/100 WBC Auto (Bld) on 04-01-2024 Basophils/100 WBC (Bld) 0.2 % 0.2-2.0 [facility] Eosinophils/100 WBC Auto (Bl d)on 04-01-2024 Eosinophils/100 WBC (Bld) 1.8 % 0.9-7.0 [facility] Erythrocyte distribution wid th Auto (RBC) [Ratio]on 04-01-2024 Erythrocyte distribution width (RBC) [Ratio] 13.7 % 11.0-15.0 [facility] Estimated glomerular filtrat ion rate (GFR) non- Americanon 04-01-2024 GFR/1.73 sq M.predicted among non-blacks MDRD (S/P/Bld) [Vol rate/Area] 43 mL/min/{1.73_m2} Low >=60 [facility] Globulin Calc (S) [Mass/Vol] on 04-01-2024 Globulin (S) [Mass/Vol] 3.3 g/dL [facility] Hematocrit Auto (Bld) [Volum e fraction]on 04-01-2024 Hematocrit (Bld) [Volume fraction] 35.6 % Low 42.0-54.0 [facility] Hemoglobin [Mass/volume] in Bloodon 04-01-2024 Hemoglobin (Bld) [Mass/Vol] 11.1 g/dL Low 14.0-18.0 [facility] INR in Platelet poor plasma by Coagulation assayon 04-01-2024 INR Coag (PPP) [Relative time] 0.98 {INR} [facility] Comment on above: DESIRED INR:2.0-3.0 CONDITIONS NOT LISTED BELOW2.5-3.5 FOR PROSTHETIC HEART VALVE REPLACEMENT2.5-3.5 [facility]ROMBOSIS Laboratory - Chemistry and C hemistry - challengeon 04-01-2024 Albumin [Mass/Vol] 3.3 g/dL Low 3.4-5.0 [facility] ALP [Catalytic activity/Vol] 91 U/L 46-116 [facility] ALT [Catalytic activity/Vol] 19 U/L 16-63 [facility] AST [Catalytic activity/Vol] 12 U/L Low 15-37 [facility] Bilirubin [Mass/Vol] 0.4 mg/dL 0.2-1.0 [facility] Calcium [Mass/Vol] 8.5 mg/dL 8.5-10.1 [facility] Chloride [Moles/Vol] 102 mmol/L 98-107 [facility] CO2 [Moles/Vol] 26.5 mmol/L 21.0-32.0 [facility] Creatinine [Mass/Vol] 1.56 mg/dL High 0.70-1.30 [facility] GFR/1.73 sq M.predicted MDRD (S/P/Bld) [Vol rate/Area] 52 mL/min/{1.73_m2} Low >=60 [facility] Glucose [Mass/Vol] 234 mg/dL High 74-106 [facility] Natriuretic peptide B (Bld) [Mass/Vol] 284.0 pg/mL <=1800.0 [facility] Potassium [Moles/Vol] 4.2 mmol/L 3.5-5.1 [facility] Protein [Mass/Vol] 6.6 g/dL 6.4-8.2 [facility] Sodium [Moles/Vol] 138 mmol/L 136-145 [facility] Urea nitrogen [Mass/Vol] 18.0 mg/dL 7.0-18.0 [facility] Urea nitrogen/Creatinine [Mass ratio] 11.5 mg/mg [facility] Laboratory - Hematology and Cell countson 04-01-2024 Immature granulocytes/100 WBC (Bld) 0.2 % 0.0-0.5 [facility] Leukocytes [#/volume] correc iván for nucleated erythrocytes in Blood by Automated counon 04-01-2024 WBC corrected for nucl RBC Auto (Bld) [#/Vol] 6.2 10 3/uL 4.0-11.0 [facility] Lymphocytes Auto (Bld) [#/Vo l]on 04-01-2024 Lymphocytes (Bld) [#/Vol] 1.3 10 3/uL 1.2-3.8 [facility] Lymphocytes/100 WBC Auto (Bl d)on 04-01-2024 Lymphocytes/100 WBC (Bld) 20.2 % Low 20.5-60.0 [facility] MCH Auto (RBC) [Entitic mass ]on 04-01-2024 MCH (RBC) [Entitic mass] 27.5 pg 25.9-34.0 [facility] MCHC Auto (RBC) [Mass/Vol]on 04-01-2024 MCHC (RBC) [Mass/Vol] 31.2 g/dL 29.9-35.2 [facility] MCV Auto (RBC) [Entitic vol] on 04-01-2024 MCV (RBC) [Entitic vol] 88.1 fL 80.0-94.0 [facility] Monocytes Auto (Bld) [#/Vol] on 04-01-2024 Monocytes (Bld) [#/Vol] 0.6 10 3/uL 0.3-0.8 [facility] Monocytes/100 WBC Auto (Bld) on 04-01-2024 Monocytes/100 WBC (Bld) 10.2 % 1.7-12.0 [facility] Neutrophils Auto (Bld) [#/Vo l]on 04-01-2024 Neutrophils (Bld) [#/Vol] 4.2 10 3/uL 1.4-6.5 [facility] Neutrophils/100 WBC Auto (Bl d)on 04-01-2024 Neutrophils/100 WBC (Bld) 67.4 % 43.0-75.0 [facility] No Panel Informationon 04-01 Troponin I High Sensitivity 6.7 pg/mL 4.0-76.1 [facility] Comment on above: CUT-OFF POINTS HAVE [...] # (Auto) 0.1 10 3/uL 0.0-0.7 [facility] Immature Granulocyte # (Auto) 0.01 10 3/uL 0.00-0.03 [facility] Platelet mean volume Auto (B ld) [Entitic vol]on 04-01-2024 Platelet mean volume (Bld) [Entitic vol] 11.8 fL 9.5-13.5 [facility] Platelets Auto (Bld) [#/Vol] on 04-01-2024 Platelets (Bld) [#/Vol] 152 10 3/uL 150-450 [facility] Prothrombin time (PT)on PT Coag (PPP) [Time] 10.4 s 9.0-11.6 [facility] RBC Auto (Bld) [#/Vol]on RBC (Bld) [#/Vol] 4.04 10 6/uL Low 4.70-6.10 [facility] Serum or plasma albumin/glob ulin mass ratioon 04-01-2024 Albumin/Globulin [Mass ratio] 1.0 {ratio} [facility] Serum or plasma anion gap de terminationon 04-01-2024 Anion gap [Moles/Vol] 13.7 mmol/L [facility] Office Visiton 03-22-2024 Follow-up visit [id number] Amina Goncalves 1945 M Date Provider Department Center 03/22/2024 OLIVER RUELAS [facility]O [facility] Family History Problem Relation Age of Onset Cancer Mother Heart attack Other Family Status - Relation Status Age at Mother Other Level of Service:07860 SD OFFICE/OUTPATIENT ESTABLISHED LOW MDM 20 MIN Normal [facility] HPon 03-16-2024 HP History Of Present I [...] a hospital admission) Transesophageal echo (JESSICA) 01/24/2024 [id number] Final Review of Systems Constitutional: Positive for [...] left atrial appendage closure per protocol. Normal [facility] NURSNOTEon 03-16-2024 NURSNOTE Bedside swallow stud y passed. Normal [facility] NURSNOTE RN educated pt on d/ c instructions. RN encouraged pt to voice any questions or concerns. Pt verbalizes no questions or concerns at this time. Normal [facility] Glucose mean value [Mass/vol ume] in Blood Estimated from glycated hemoglobinon 02-27-2024 Average glucose Estimated from glycated hemoglobin (Bld) [Mass/Vol] 160 mg/dL [facility] Laboratory - Hematology and Cell countson 02-27-2024 HbA1c (Bld) [Mass fraction] 7.2 % High 4.5-6.2 [facility] Comment on above: ADA RECOMMENDED LIMI T 4.0 - 6.0ADA THERAPEUTIC TARGET < 7.0ACTION SUGGESTED> 7.0 Capillary blood glucose winifred urement by glucometer (mass/volume)Ordered By: Augustine Freitas on 02-24-2024 Glucose [Mass/Vol] 124 mg/dL Normal [facility] Comment on above: Random Glucose Refer ence Range is dependent on time and content of last meal. Glucose of more than 200 mg/dL in a nonstressed, ambulatory subject supports the diagnosis of Diabetes Mellitus. Result Comment: [place] Glucose Reference Range is dependent on [...] on above: Result Comment: PERF ORMED BY: [place] [address] PATHOLOGIST SPINNERET PERSON RICKY STRANGE M.D. Performed By: #### G LULS #### Point of Care testing , No Panel InformationOrdered By: Augustine Freitas on 02-24-2024 Bedside Glucose Comment Glu2: cleaned meter [facility] 36on 02-16-2024 36 There are pictures i n media Normal [facility] ECG 12 lead ECGon 02-16-2024 ECG 12 lead ECG [facility] [place] [address] Electrocardiograph Report Signed Patient: Tito Goncalves MR#: [id number] : 1945 Acct:[id number] Age/Sex: 79 / M ADM Date: 02/16/24 Loc: PS Room: Type: DEP CLI Attending Dr: Augustine Freitas DO Ordering Provider: [...] T wave abnormality Confirmed by Viviane Herman ([id number]) on 02/17/2024 12:43:51 PM Referred By: ZENA Electronically Signed By:Viviane Herman Transcribed By: QI Signed By Viviane Herman MD 4 1243 Normal [facility] Office Visiton 02-09-2024 Follow-up visit [id number] MichjamesAmina 1945 M Date Provider Department Center 02/09/2024 MADISON MOSES CARD [facility] Family History Problem Relation Age of Onset Cancer Mother Heart attack Other Family Status - Relation Status Age at Mother Other Level of Service:74383 SD OFFICE/OUTPATIENT ESTABLISHED LOW MDM 20 MIN Reason for Visit and Comments: Atrial Fibrillation [80] - S/p LAAO with Amulet device Normal [facility] 30on 01-29-2024 30 The patient is Moder [...] Goal: Maintains hematologic stability Outcome: Progressing Normal [facility] BASIC METABOLIC PANELon 05-0 Anion gap [Moles/Vol] 11 mmol/L Normal 7-20 [facility] Comment on above: Performed By: #### L [id number] #### [facility] ([facility]) [address] [place] [address] Calcium [Mass/Vol] 8.0 mg/dL Low 8.6-10.3 [facility] Comment on above: Performed By: #### L [id number] #### [facility] ([facility]) [address] [place] [address] Chloride [Moles/Vol] 109 mmol/L High 98-107 [facility] Comment on above: Performed By: #### L [id number] #### [facility] ([facility]) [address] [place] [address] CO2 [Moles/Vol] 24 mmol/L Normal 21-31 [facility] Comment on above: Performed By: #### L [id number] #### [facility] ([facility]) [address] [place] [address] Creatinine [Mass/Vol] 1.17 mg/dL Normal 0.70-1.30 [facility] Comment on above: Performed By: #### L [id number] #### [facility] ([facility]) [address] [place] [address] GLOMERULAR FILTRATION RATE ML/MIN/1.73 SQ M.PREDICTED 63.8 mL/min/1.73m*2 Normal >60.0 [facility] Comment on above: Result Comment: The [facility]???s estimated glomerular filtration rate (eGFR) will no [...] group of individuals. Performed By: #### L [id number] #### [facility] ([facility]) [address] [place] [address] Glucose [Mass/Vol] 125 mg/dL High 70-100 [facility] Comment on above: Performed By: #### L [id number] #### [facility] ([facility]) [address] [place] [address] Potassium [Moles/Vol] 3.6 mmol/L Normal 3.5-5.1 [facility] Comment on above: Performed By: #### L [id number] #### [facility] ([facility]) [address] [place] [address] Sodium [Moles/Vol] 140 mmol/L Normal 136-145 [facility] Comment on above: Performed By: #### L [id number] #### [facility] ([facility]) [address] [place] [address] Urea nitrogen [Mass/Vol] 22 mg/dL Normal 7-25 [facility] Comment on above: Performed By: #### L [id number] #### [facility] [address] [place] [address] UREA NITROGEN/CREATININE (MASS RATIO) IN SER/PLAS 18.8 Normal [facility] Comment on above: Performed By: #### L [id number] #### [facility] [address] [place] [address] CBCon 01-29-2024 Erythrocyte distribution width (RBC) [Ratio] 14.6 % Normal 11.5-15.0 [facility] Comment on above: Performed By: #### L [id number] #### [facility] [address] [place] [address] ERYTHROCYTE MEAN CORPUSCULAR HEMOGLOBIN CONCENTRATION (G/DL) BY AUTOMATED 32.8 g/dL Normal 32.0-35.0 [facility] Comment on above: Performed By: #### L [id number] #### [facility] ([facility]) [address] [place] [address] Hematocrit (Bld) [Volume fraction] 30.5 % Low 39.0-55.0 [facility] Comment on above: Performed By: #### L [id number] #### [facility] ([facility]) [address] [place] [address] Hemoglobin (Bld) [Mass/Vol] 10.0 g/dL Low 13.0-17.0 [facility] Comment on above: Performed By: #### L [id number] #### [facility] ([facility]) [address] [place] [address] MCH (RBC) [Entitic mass] 29.1 pg Normal 27.0-33.0 [facility] Comment on above: Performed By: #### L [id number] #### [facility] ([facility]) [address] [place] [address] MCV (RBC) [Entitic vol] 88.7 fL Normal 82.0-98.0 [facility] Comment on above: Performed By: #### L [id number] #### [facility] ([facility]) [address] [place] [address] PLATELETS (10*3/UL) IN BLOOD AUTOMATED COUNT 151 10*3/uL Normal 150-400 [facility] Comment on above: Performed By: #### L [id number] #### [facility] ([facility]) [address] [place] [address] RBC (Bld) [#/Vol] 3.44 10*6/uL Low 4.20-5.70 [facility] Comment on above: Performed By: #### L [id number] #### [facility] ([facility]) [address] [place] [address] WBC (Bld) [#/Vol] 6.43 10*3/uL Normal 4.00-10.60 [facility] Comment on above: Performed By: #### L [id number] #### [facility] ([facility]) [address] [place] [address] HEMOGLOBIN A1Con 01-29-2024 Glucose [Mass/Vol] 163 mg/dL Normal [facility] Comment on above: Performed By: #### L [id number] #### [facility] ([facility]) [address] [place] [address] HbA1c (Bld) [Mass fraction] 7.3 % High 4.0-6.0 [facility] Comment on above: Performed By: #### L [id number] #### [facility] [address] [place] [address] POCT GLUCOSE METER UNSOLICIT ED RESULTSon 01-29-2024 Glucose [Mass/Vol] 218 mg/dL High 70-105 [facility] Comment on above: Order Comment: Waive d Testing in the ED is performed under the ED CLIA certificate #[id number]. Result Comment: [email or web address] Performed By: #### L [id number] ####[facility] ([facility])[address] [place] [address] Glucose [Mass/Vol] 138 mg/dL High 70-105 [facility] Comment on above: Order Comment: Waive d Testing in the ED is performed under the ED CLIA certificate #[id number]. Result Comment: [email or web address] Performed By: #### L [id number] ####[facility] ([facility])[address] [place] [address] 30on 01-28-2024 30 The patient is Moder [...] and behaviors that affect risk of falls Devine fall precautions as indicated by assessment Problem: [...] Goal: Maintains hematologic stability Outcome: Progressing Normal [facility] BASIC METABOLIC PANELon 05-0 Anion gap [Moles/Vol] 12 mmol/L Normal 7-20 [facility] Comment on above: Performed By: #### L [id number] ####[facility] ([facility])[address] [facility] [place] [address] Calcium [Mass/Vol] 7.7 mg/dL Low 8.6-10.3 [facility] Comment on above: Performed By: #### L [id number] ####[facility] ([facility])[address] [place] [address] Chloride [Moles/Vol] 108 mmol/L High 98-107 [facility] Comment on above: Performed By: #### L [id number] ####[facility] ([facility])[address] [place] [address] CO2 [Moles/Vol] 21 mmol/L Normal 21-31 [facility] Comment on above: Performed By: #### L [id number] ####[facility] ([facility])[address] [place] [address] Creatinine [Mass/Vol] 1.16 mg/dL Normal 0.70-1.30 [facility] Comment on above: Performed By: #### L [id number] ####[facility] ([facility])[address] [place] [address] GLOMERULAR FILTRATION RATE ML/MIN/1.73 SQ M.PREDICTED 64.5 mL/min/1.73m*2 Normal >60.0 [facility] Comment on above: Result Comment: The [facility]???s estimated glomerular filtration rate (eGFR) will no [...] of individuals. Performed By: #### L [id number] ####[facility] ([facility])[address] [place] [address] Glucose [Mass/Vol] 143 mg/dL High 70-100 [facility] Comment on above: Performed By: #### L [id number] ####[facility] ([facility])[address] [place] [address] Potassium [Moles/Vol] 3.3 mmol/L Low 3.5-5.1 [facility] Comment on above: Performed By: #### L [id number] ####[facility] ([facility])[address] [place] [address] Sodium [Moles/Vol] 138 mmol/L Normal 136-145 [facility] Comment on above: Performed By: #### L [id number] ####[facility] ([facility])[address] [place] [address] Urea nitrogen [Mass/Vol] 27 mg/dL High 7-25 [facility] Comment on above: Performed By: #### L [id number] ####[facility] ([facility])[address] [place] [address] UREA NITROGEN/CREATININE (MASS RATIO) IN SER/PLAS 23.3 Normal [facility] Comment on above: Performed By: #### L [id number] ####[facility] ([facility])[address] [place] [address] CBCon 01-28-2024 Erythrocyte distribution width (RBC) [Ratio] 14.4 % Normal 11.5-15.0 [facility] Comment on above: Performed By: #### L [id number] #### [facility] ([facility]) [address] [place] [address] ERYTHROCYTE MEAN CORPUSCULAR HEMOGLOBIN CONCENTRATION (G/DL) BY AUTOMATED 32.8 g/dL Normal 32.0-35.0 [facility] Comment on above: Performed By: #### L [id number] #### [facility] ([facility]) [address] [place] [address] Hematocrit (Bld) [Volume fraction] 31.4 % Low 39.0-55.0 [facility] Comment on above: Performed By: #### L [id number] #### [facility] ([facility]) [address] [place] [address] Hemoglobin (Bld) [Mass/Vol] 10.3 g/dL Low 13.0-17.0 [facility] Comment on above: Performed By: #### L [id number] #### [facility] ([facility]) [address] [place] [address] MCH (RBC) [Entitic mass] 29.0 pg Normal 27.0-33.0 [facility] Comment on above: Performed By: #### L [id number] #### [facility] ([facility]) [address] [address] MCV (RBC) [Entitic vol] 88.5 fL Normal 82.0-98.0 [facility] Comment on above: Performed By: #### L [id number] #### [facility] ([facility]) [address] [place] [address] PLATELETS (10*3/UL) IN BLOOD AUTOMATED COUNT 134 10*3/uL Low 150-400 [facility] Comment on above: Performed By: #### L [id number] #### [facility] ([facility]) [address] [place] [address] RBC (Bld) [#/Vol] 3.55 10*6/uL Low 4.20-5.70 [facility] Comment on above: Performed By: #### L [id number] #### [facility] ([facility]) [address] [place] [address] WBC (Bld) [#/Vol] 6.52 10*3/uL Normal 4.00-10.60 [facility] [place] Comment on above: Performed By: #### L [id number] #### [facility] ([facility]) [address] [place] [address] MAGNESIUMon 01-28-2024 Magnesium [Mass/Vol] 1.8 mg/dL Low 1.9-2.7 [facility] Comment on above: Performed By: #### L [id number] #### [facility] ([facility]) [address] [place] [address] PHOSPHORUSon 01-28-2024 Magnesium [Mass/Vol] 2.5 mg/dL Normal 2.5-5.0 [facility] Comment on above: Performed By: #### L [id number] ####[facility] ([facility])[address] [place] [address] POCT GLUCOSE METER UNSOLICIT ED RESULTSon 01-28-2024 Glucose [Mass/Vol] 258 mg/dL High 70-105 [facility] Comment on above: Order Comment: Waive d Testing in the ED is performed under the ED CLIA certificate #[id number]. Result Comment: [email or web address] Performed By: #### L [id number] #### [facility] ([facility]) [address] [place] [address] Glucose [Mass/Vol] 133 mg/dL High 70-105 [facility] Comment on above: Order Comment: Waive d Testing in the ED is performed under the ED CLIA certificate #[id number]. Result Comment: [email or web address] Performed By: #### L [id number] ####[facility] ([facility])[address] [place] [address] Glucose [Mass/Vol] 260 mg/dL High 70-105 [facility] Comment on above: Order Comment: Waive d Testing in the ED is performed under the ED CLIA certificate #[id number]. Result Comment: [email or web address] Performed By: #### L [id number] #### [facility] ([facility]) [address] [place] [address] Glucose [Mass/Vol] 140 mg/dL High 70-105 [facility] Comment on above: Order Comment: Waive d Testing in the ED is performed under the ED CLIA certificate #[id number]. Result Comment: [email or web address] Performed By: #### L [id number] #### [facility] ([facility]) [address] [place] [address] 30on 01-27-2024 30 Daily Case Managemen t Update Multidisciplinary rounds have been completed. 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 Pericardial drain remains in place. On amiodarone gtt. Plan to discharge home when medically cleared. Diet: Dietary Orders (From admission, onward) Start Ordered 01/26/24 1247 Special Kitchen Request Once Comments: Chicken noodle soup Fruit cup Diet coke Tilapia (plain) Dundee cake 01/26/24 1246 01/26/24 1246 Regular Diet [...] Answer: eval and treat 01/26/24 1241 Normal [facility] 30 The patient is Moder ately Stable [...] medication and electrolyte replacement as ordered Normal [facility] BASIC METABOLIC PANELon 05-0 Anion gap [Moles/Vol] 11 mmol/L Normal 7-20 [facility] Comment on above: Performed By: #### L [id number] #### [facility] ([facility]) [address] [place] [address] Calcium [Mass/Vol] 7.9 mg/dL Low 8.6-10.3 [facility] Comment on above: Performed By: #### L [id number] #### [facility] ([facility]) [address] [place] [address] Chloride [Moles/Vol] 108 mmol/L High 98-107 [facility] Comment on above: Performed By: #### L [id number] #### [facility] ([facility]) [address] [place] [address] CO2 [Moles/Vol] 22 mmol/L Normal 21-31 [facility] Comment on above: Performed By: #### L [id number] #### [facility] ([facility]) [address] [place] [address] Creatinine [Mass/Vol] 1.31 mg/dL High 0.70-1.30 [facility] Comment on above: Performed By: #### L [id number] #### [facility] ([facility]) [address] [place] [address] GLOMERULAR FILTRATION RATE ML/MIN/1.73 SQ M.PREDICTED 55.7 mL/min/1.73m*2 Low >60.0 [facility] Comment on above: Result Comment: The [facility]???s estimated glomerular filtration rate (eGFR) will no [...] group of individuals. Performed By: #### L [id number] #### [facility] ([facility]) [address] [place] [address] Glucose [Mass/Vol] 154 mg/dL High 70-100 [facility] Comment on above: Performed By: #### L [id number] #### [facility] ([facility]) [address] [place] [address] Potassium [Moles/Vol] 3.6 mmol/L Normal 3.5-5.1 [facility] Comment on above: Performed By: #### L [id number] #### [facility] ([facility]) [address] [place] [address] Sodium [Moles/Vol] 137 mmol/L Normal 136-145 [facility] Comment on above: Performed By: #### L [id number] #### [facility] [address] [place] [address] Urea nitrogen [Mass/Vol] 30 mg/dL High 7-25 [facility] Comment on above: Performed By: #### L [id number] #### [facility] [address] [facility] [place] [address] UREA NITROGEN/CREATININE (MASS RATIO) IN SER/PLAS 22.9 Normal [facility] Comment on above: Performed By: #### L [id number] #### [facility] ([facility]) [address] [facility] [place] [address] CBCon 01-27-2024 Erythrocyte distribution width (RBC) [Ratio] 14.5 % Normal 11.5-15.0 [facility] Comment on above: Performed By: #### L [id number] #### [facility] ([facility]) [address] [place] [address] ERYTHROCYTE MEAN CORPUSCULAR HEMOGLOBIN CONCENTRATION (G/DL) BY AUTOMATED 32.2 g/dL Normal 32.0-35.0 [facility] Comment on above: Performed By: #### L [id number] #### [facility] ([facility]) [address] [place] [address] Hematocrit (Bld) [Volume fraction] 31.4 % Low 39.0-55.0 [facility] Comment on above: Performed By: #### L [id number] #### [facility] [address] [place] [address] Hemoglobin (Bld) [Mass/Vol] 10.1 g/dL Low 13.0-17.0 [facility] Comment on above: Performed By: #### L [id number] #### [facility] [address] [facility] [place] [address] MCH (RBC) [Entitic mass] 29.0 pg Normal 27.0-33.0 [facility] Comment on above: Performed By: #### L [id number] #### [facility] ([facility]) [address] [place] [address] MCV (RBC) [Entitic vol] 90.2 fL Normal 82.0-98.0 [facility] Comment on above: Performed By: #### L [id number] #### [facility] ([facility]) [address] [place] [address] PLATELETS (10*3/UL) IN BLOOD AUTOMATED COUNT 134 10*3/uL Low 150-400 [facility] Comment on above: Performed By: #### L [id number] #### [facility] ([facility]) [address] [place] [address] RBC (Bld) [#/Vol] 3.48 10*6/uL Low 4.20-5.70 [facility] Comment on above: Performed By: #### L [id number] #### [facility] ([facility]) [address] [place] [address] WBC (Bld) [#/Vol] 8.70 10*3/uL Normal 4.00-10.60 [facility] Comment on above: Performed By: #### L [id number] #### [facility] ([facility]) [address] [place] [address] MAGNESIUMon 01-27-2024 Magnesium [Mass/Vol] 2.0 mg/dL Normal 1.9-2.7 [facility] Comment on above: Performed By: #### L [id number] ####[facility] ([facility])[address] [place] [address] NURSNOTEon 01-27-2024 NURSNOTE Patient Name: Tito Goncalves [...] voiced no concerns at this time. The insurance underwriter sales urged the primary RN to call the rapid team if any concerns arise overnight. Vic Euceda RN Rapid Response Team Nurse [phone] 01/27/2024 9:04 PM Normal [facility] NURSNOTE Patient Name: Tito Goncalves : 1945 [...] this time. Vital signs are stable via gse mechanic and daily lab values are unremarkable. If emergent concerns arise, please call rapid response team. Dominga Millard RN Rapid Response Team Nurse [phone] 01/27/2024 12:15 PM Normal [facility] PHOSPHORUSon 01-27-2024 Magnesium [Mass/Vol] 2.2 mg/dL Low 2.5-5.0 [facility] Comment on above: Performed By: #### L [id number] #### [facility] ([facility]) [address] [place] [address] POCT GLUCOSE METER UNSOLICIT ED RESULTSon 01-27-2024 Glucose [Mass/Vol] 206 mg/dL High 70-105 [facility] Comment on above: Order Comment: Waive d Testing in the ED is performed under the ED CLIA certificate #[id number]. Result Comment: [email or web address] Performed By: #### L [id number] #### [facility] ([facility]) [address] [place] [address] Glucose [Mass/Vol] 187 mg/dL High 70-105 [facility] Comment on above: Order Comment: Waive d Testing in the ED is performed under the ED CLIA certificate #[id number]. Result Comment: [email or web address] Performed By: #### L [id number] #### [facility] ([facility]) [address] [place] [address] Glucose [Mass/Vol] 223 mg/dL High 70-105 [facility] Comment on above: Order Comment: Waive d Testing in the ED is performed under the ED CLIA certificate #[id number]. Result Comment: [email or web address] Performed By: #### L [id number] #### [facility] ([facility]) [address] [place] [address] Glucose [Mass/Vol] 160 mg/dL High 70-105 [facility] Comment on above: Order Comment: Waive d Testing in the ED is performed under the ED CLIA certificate #[id number]. Result Comment: [email or web address] Performed By: #### L [id number] #### [facility] ([facility]) [address] [place] [address] 30on 01-26-2024 30 Daily Case Managemen t [...] soup Fruit cup Diet coke Tilapia (plain) Dundee cake 01/26/24 1246 01/26/24 1246 Regular Diet [...] Answer: eval and treat 01/26/24 1241 Normal [facility] BASIC METABOLIC PANELon 05-0 Anion gap [Moles/Vol] 12 mmol/L Normal 7-20 [facility] Comment on above: Performed By: #### L [id number] ####[facility] ([facility])[address] [place] [address] Calcium [Mass/Vol] 7.6 mg/dL Low 8.6-10.3 [facility] Comment on above: Performed By: #### L [id number] ####[facility] ([facility])[address] [facility] [address] Chloride [Moles/Vol] 109 mmol/L High 98-107 [facility] Comment on above: Performed By: #### L [id number] ####[facility] ([facility])[address] [place] [address] CO2 [Moles/Vol] 21 mmol/L Normal 21-31 [facility] Comment on above: Performed By: #### L [id number] ####[facility] ([facility])[address] [place] [address] Creatinine [Mass/Vol] 1.62 mg/dL High 0.70-1.30 [facility] Comment on above: Performed By: #### L [id number] ####[facility] ([facility])[address] [place] [address] GLOMERULAR FILTRATION RATE ML/MIN/1.73 SQ M.PREDICTED 43.2 mL/min/1.73m*2 Low >60.0 [facility] Comment on above: Result Comment: The [facility]???s estimated glomerular filtration rate (eGFR) will no [...] of individuals. Performed By: #### L [id number] ####[facility] ([facility])[address] [place] [address] Glucose [Mass/Vol] 152 mg/dL High 70-100 [facility] Comment on above: Performed By: #### L [id number] ####[facility] ([facility])[address] [place] [address] Potassium [Moles/Vol] 3.9 mmol/L Normal 3.5-5.1 [facility] Comment on above: Performed By: #### L [id number] ####[facility] ([facility])[address] [place] [address] Sodium [Moles/Vol] 138 mmol/L Normal 136-145 [facility] Comment on above: Performed By: #### L [id number] ####[facility] ([facility])[address] [place] [address] Urea nitrogen [Mass/Vol] 37 mg/dL High 7-25 [facility] Comment on above: Performed By: #### L [id number] ####[facility] ([facility])[address] [place] [address] UREA NITROGEN/CREATININE (MASS RATIO) IN SER/PLAS 22.8 Normal [facility] Comment on above: Performed By: #### L [id number] ####[facility] ([facility])[address] [place] [address] CBCon 01-26-2024 Erythrocyte distribution width (RBC) [Ratio] 14.5 % Normal 11.5-15.0 [facility] Comment on above: Performed By: #### L [id number] #### [facility] ([facility]) [address] [place] [address] ERYTHROCYTE MEAN CORPUSCULAR HEMOGLOBIN CONCENTRATION (G/DL) BY AUTOMATED 31.9 g/dL Low 32.0-35.0 [facility] Comment on above: Performed By: #### L [id number] #### [facility] ([facility]) [address] [place] [address] Hematocrit (Bld) [Volume fraction] 33.2 % Low 39.0-55.0 [facility] Comment on above: Performed By: #### L [id number] #### [facility] ([facility]) [address] [place] [address] Hemoglobin (Bld) [Mass/Vol] 10.6 g/dL Low 13.0-17.0 [facility] Comment on above: Performed By: #### L [id number] #### [facility] ([facility]) [address] [place] [address] MCH (RBC) [Entitic mass] 29.1 pg Normal 27.0-33.0 [facility] Comment on above: Performed By: #### L [id number] #### [facility] [address] [place] [address] MCV (RBC) [Entitic vol] 91.2 fL Normal 82.0-98.0 [facility] Comment on above: Performed By: #### L [id number] #### [facility] [address] [place] [address] PLATELETS (10*3/UL) IN BLOOD AUTOMATED COUNT 123 10*3/uL Low 150-400 [facility] Comment on above: Performed By: #### L [id number] #### [facility] ([facility]) [address] [place] [address] RBC (Bld) [#/Vol] 3.64 10*6/uL Low 4.20-5.70 [facility] Comment on above: Performed By: #### L [id number] #### [facility] ([facility]) [address] [place] [address] WBC (Bld) [#/Vol] 12.08 10*3/uL High 4.00-10.60 [facility] Comment on above: Performed By: #### L [id number] #### [facility] ([facility]) [address] [facility] [place] [address] MAGNESIUMon 01-26-2024 Magnesium [Mass/Vol] 1.9 mg/dL Normal 1.9-2.7 [facility] Comment on above: Performed By: #### L [id number] #### [facility] ([facility]) [address] [facility] [place] [address] NURSNOTEon 01-26-2024 NURSNOTE Patient Name: Tito Goncalves [...] time, but encouraged to reach out to LIGHTING TECHNICIAN if anything changes overnight or with any further concerns. Suleman Ortiz RN Rapid Response Team Nurse [phone] 01/26/2024 10:20 PM Normal [facility] PHOSPHORUSon 01-26-2024 Magnesium [Mass/Vol] 3.7 mg/dL Normal 2.5-5.0 [facility] Comment on above: Performed By: #### L [id number] #### [facility] ([place]) [address] [place] [address] POCT GLUCOSE METER UNSOLICIT ED RESULTSon 01-26-2024 Glucose [Mass/Vol] 163 mg/dL High 70-105 [facility] Comment on above: Order Comment: Waive d Testing in the ED is performed under the ED CLIA certificate #[id number]. Result Comment: [email or web address] Performed By: #### L [id number] ####[facility] ([place])[address] [place] [address] Glucose [Mass/Vol] 206 mg/dL High 70-105 [facility] Comment on above: Order Comment: Waive d Testing in the ED is performed under the ED CLIA certificate #[id number]. Result Comment: [email or web address] Performed By: #### L [id number] #### [facility] ([place]) [address] [place] [address] Glucose [Mass/Vol] 155 mg/dL High 70-105 [facility] Comment on above: Order Comment: Waive d Testing in the ED is performed under the ED CLIA certificate #[id number]. Result Comment: [email or web address] Performed By: #### L [id number] ####[facility] ([place])[address] [place] [address] Glucose [Mass/Vol] 150 mg/dL High 70-105 [facility] Comment on above: Order Comment: Waive d Testing in the ED is performed under the ED CLIA certificate #[id number]. Result Comment: [email or web address] Performed By: #### L [id number] ####[facility] ([place])[address] [place] [address] 30on 01-25-2024 30 Daily Case Managemen t Update Multidisciplinary rounds have been completed. Barriers to Discharge: 01/24- patient here for planned atrial appendage closure. Per morning meeting the patient fell this morning, presumably from hypotension (BP in 60s/70s). Gave patient fluids to rescusitate but was unsuccessful. Patient was started on levophed and brought to MICU. ECHO showed pericardia effusion, went to pathology laboratory director this morning for pericardiocentesis. Patient has pericardial [...] PT Recommendations: OT Recommendations: New Consults: Normal [facility] BASIC METABOLIC PANELon 05-0 Anion gap [Moles/Vol] 18 mmol/L Normal 7-20 [facility] Comment on above: Performed By: #### L [id number] #### [facility] ([facility]) [address] [place] [address] Calcium [Mass/Vol] 7.8 mg/dL Low 8.6-10.3 [facility] Comment on above: Performed By: #### L [id number] #### [facility] ([facility]) [address] [place] [address] Chloride [Moles/Vol] 104 mmol/L Normal 98-107 [facility] Comment on above: Performed By: #### L [id number] #### [facility] ([facility]) [address] [place] [address] CO2 [Moles/Vol] 20 mmol/L Low 21-31 [facility] Comment on above: Performed By: #### L [id number] #### [facility] ([facility]) [address] [facility] [place] [place] [address] Creatinine [Mass/Vol] 1.99 mg/dL High 0.70-1.30 [facility] Comment on above: Performed By: #### L [id number] #### [facility] ([facility]) [address] [place] [address] GLOMERULAR FILTRATION RATE ML/MIN/1.73 SQ M.PREDICTED 33.7 mL/min/1.73m*2 Low >60.0 [facility] Comment on above: Result Comment: The [facility]???s estimated glomerular filtration rate (eGFR) will no [...] group of individuals. Performed By: #### L [id number] #### [facility] ([facility]) [address] [place] [address] Glucose [Mass/Vol] 257 mg/dL High 70-100 [facility] Comment on above: Performed By: #### L [id number] #### [facility] ([facility]) [address] [place] [address] Potassium [Moles/Vol] 5.0 mmol/L Normal 3.5-5.1 [facility] Comment on above: Performed By: #### L [id number] #### [facility] ([facility]) [address] [place] [address] Sodium [Moles/Vol] 137 mmol/L Normal 136-145 [facility] Comment on above: Performed By: #### L [id number] #### [facility] ([facility]) [address] [facility] [place] [address] Urea nitrogen [Mass/Vol] 30 mg/dL High 7-25 [facility] Comment on above: Performed By: #### L [id number] #### [facility] ([facility]) [address] [place] [address] UREA NITROGEN/CREATININE (MASS RATIO) IN SER/PLAS 15.1 Normal [facility] Comment on above: Performed By: #### L [id number] #### [facility] ([facility]) [address] [place] [address] BLOOD CULTUREon 01-25-2024 Bacteria identified Cx Nom (Bld) No growth at 5 days Normal [facility] Comment on above: Order Comment: From a different site than #1. Performed By: #### L [id number] #### [facility] ([facility]) [address] [place] [address] Bacteria identified Cx Nom (Bld) No growth at 5 days Normal [facility] Comment on above: Performed By: #### L [id number] #### [facility] ([facility]) [address] [place] [address] CBCon 01-25-2024 Erythrocyte distribution width (RBC) [Ratio] 14.1 % Normal 11.5-15.0 [facility] Comment on above: Performed By: #### L [id number] #### [facility] ([facility]) [address] [place] [address] ERYTHROCYTE MEAN CORPUSCULAR HEMOGLOBIN CONCENTRATION (G/DL) BY AUTOMATED 31.9 g/dL Low 32.0-35.0 [facility] Comment on above: Performed By: #### L [id number] #### [facility] ([facility]) [address] [place] [address] Hematocrit (Bld) [Volume fraction] 34.5 % Low 39.0-55.0 [facility] Comment on above: Performed By: #### L [id number] #### [facility] ([facility]) [address] [place] [address] Hemoglobin (Bld) [Mass/Vol] 11.0 g/dL Low 13.0-17.0 [facility] Comment on above: Performed By: #### L [id number] #### [facility] ([facility]) [address] [place] [address] MCH (RBC) [Entitic mass] 28.9 pg Normal 27.0-33.0 [facility] Comment on above: Performed By: #### L [id number] #### [facility] ([facility] [address] [place] [address] MCV (RBC) [Entitic vol] 90.6 fL Normal 82.0-98.0 [facility] Comment on above: Performed By: #### L [id number] #### [facility] ([facility] [address] [place] [address] PLATELETS (10*3/UL) IN BLOOD AUTOMATED COUNT 191 10*3/uL Normal 150-400 [facility] Comment on above: Performed By: #### L [id number] #### [facility] ([facility]) [address] [place] [address] RBC (Bld) [#/Vol] 3.81 10*6/uL Low 4.20-5.70 [facility] [place] Comment on above: Performed By: #### L [id number] #### [facility] ([facility]) [address] [place] [address] WBC (Bld) [#/Vol] 13.57 10*3/uL High 4.00-10.60 [facility] Comment on above: Performed By: #### L [id number] #### [facility] ([facility]) [address] [place] [address] CONSULTon 01-25-2024 CONSULT ------ -- Attestation signed [...] Goncalves Age - 79 [facility] 1945 [id number] Date of Admission - 01/24/2024 10:46 AM [...] complication and patient was admitted to the [facility] for over night monitoring to [...] TID, Lilibeth March MD, 150 mg at 01/24/241 sodium chloride 0.9 % bolus 250 mL, 250 mL, i (more content not included)... Normal [facility] CT CERVICAL SPINE WO IV CONT RASTon [...] signed: Trenton Martinez. 9 Invalid Interpretation Code [facility] CT CHEST WO IV CONTRASTon CT CHEST [...] signed: Trenton Martinez. 5 Invalid Interpretation Code [facility] CT HEAD WO IV CONTRASTon CT HEAD [...] signed: Trenton Martinez. 1 Invalid Interpretation Code [facility] HPon 01-25-2024 HP H&P reviewed. The anthony [...] procedure. He would like to proceed. Normal [facility] LACTIC ACID WITH 4 HOUR REFL EXon 01-25-2024 LACTATE (MMOL/L) IN SER/PLAS 2.1 mmol/L Normal 0.5-2.2 [facility] Comment on above: Performed By: #### L [id number] #### [facility] ([facility]) [address] [place] [address] LACTATE (MMOL/L) IN SER/PLAS 3.3 mmol/L Critically high 0.5-2.2 [facility] Comment on above: Performed By: #### L [id number] ####[facility] ([facility])[address] [place] [address] MAGNESIUMon 01-25-2024 Magnesium [Mass/Vol] 1.8 mg/dL Low 1.9-2.7 [facility] Comment on above: Performed By: #### L [id number] #### [facility] ([facility]) [address] [place] [address] POCT GLUCOSE METER UNSOLICIT ED RESULTSon 01-25-2024 Glucose [Mass/Vol] 164 mg/dL High 70-105 [facility] Comment on above: Order Comment: Waive d Testing in the ED is performed under the ED CLIA certificate #[id number]. Result Comment: tful ks2 Performed By: #### L [id number] ####[facility] ([facility])[address] [place] [address] Glucose [Mass/Vol] 134 mg/dL High 70-105 [facility] Comment on above: Order Comment: Waive d Testing in the ED is performed under the ED CLIA certificate #[id number]. Result Comment: amur tad Performed By: #### L [id number] ####[facility] ([facility])[address] [place] [address] Glucose [Mass/Vol] 167 mg/dL High 70-105 [facility] Comment on above: Order Comment: Waive d Testing in the ED is performed under the ED CLIA certificate #[id number]. Result Comment: amur tad Performed By: #### L [id number] #### [facility] ([facility]) [address] [place] [address] Glucose [Mass/Vol] 208 mg/dL High 70-105 [facility] Comment on above: Order Comment: Waive d Testing in the ED is performed under the ED CLIA certificate #[id number]. Result Comment: amur tad Performed By: #### L [id number] ####[facility] ([facility] [place])[address] [place] [address] Glucose [Mass/Vol] 270 mg/dL High 70-105 [facility] Comment on above: Order Comment: Waive d Testing in the ED is performed under the ED CLIA certificate #[id number]. Result Comment: nbow en Performed By: #### L [id number] ####[facility] ([facility] [place])[address] [facility] [place] [address] PROCALCITONIN TESTon 2 024 PROCALCITONIN IN BLOOD 0.05 ng/mL Normal 0.00-0.10 [facility] Comment on above: Result Comment: Susp ected [...] and initial PCT<0.5ng/mL Performed By: #### L [id number] #### [facility] ([facility]) [address] [place] [address] PROTIME-INRon 01-25-2024 INR IN PPP BY COAGULATION ASSAY 1.24 High 0.90-1.10 [facility] Comment on above: Result Comment: ACCC P [...] RANGE. CHEST 1995;108:[id number]. Performed By: #### L [id number] #### [facility] ([facility] [address] [place] [address] PROTHROMBIN TIME (PT) IN PPP BY COAGULATION ASSAY 15.7 Seconds High 12.3-14.8 [facility] Comment on above: Performed By: #### L [id number] #### [facility] ([facility]) [address] [place] [address] TROPONIN Ion 01-25-2024 Troponin I.cardiac [Mass/Vol] 0.84 ng/mL Critically high 0.00-0.04 [facility] Comment on above: Performed By: #### L [id number] #### [facility] ([facility]) [address] [place] [address] 30on 01-24-2024 30 The patient is Moder [...] and maintained or improved Outcome: Progressing Normal [facility] BASIC METABOLIC PANELon 12-27 Anion gap [Moles/Vol] 13 mmol/L Normal 7-20 [facility] Comment on above: Performed By: #### L [id number] ####[facility] ([facility] [place] [address] Calcium [Mass/Vol] 8.8 mg/dL Normal 8.6-10.3 [facility] Comment on above: Performed By: #### L [id number] ####[facility] ([facility])[address] [place] [address] Chloride [Moles/Vol] 103 mmol/L Normal 98-107 [facility] Comment on above: Performed By: #### L [id number] ####[facility] ([facility])[address] [place] [address] CO2 [Moles/Vol] 25 mmol/L Normal 21-31 [facility] Comment on above: Performed By: #### L [id number] ####[facility] ([facility])[address] [place] [address] Creatinine [Mass/Vol] 1.26 mg/dL Normal 0.70-1.30 [facility] Comment on above: Performed By: #### L [id number] ####[facility] ([facility])[address] [place] [address] GLOMERULAR FILTRATION RATE ML/MIN/1.73 SQ M.PREDICTED 58.4 mL/min/1.73m*2 Low >60.0 [facility] Comment on above: Result Comment: The [facility]???s estimated glomerular filtration rate (eGFR) will no [...] of individuals. Performed By: #### L [id number] ####[facility] ([facility])[address] [place] [address] Glucose [Mass/Vol] 184 mg/dL High 70-100 [facility] Comment on above: Performed By: #### L [id number] ####[facility] ([facility])[address] [place] [address] Potassium [Moles/Vol] 4.3 mmol/L Normal 3.5-5.1 [facility] Comment on above: Performed By: #### L [id number] ####[facility] ([facility])[address] [place] [address] Sodium [Moles/Vol] 137 mmol/L Normal 136-145 [facility] Comment on above: Performed By: #### L [id number] ####[facility] ([facility])[address] [place] [address] Urea nitrogen [Mass/Vol] 21 mg/dL Normal 7-25 [facility] Comment on above: Performed By: #### L [id number] ####[facility] ([place])[address] [address] UREA NITROGEN/CREATININE (MASS RATIO) IN SER/PLAS 16.7 Normal [facility] Comment on above: Performed By: #### L [id number] ####[facility] ([place])[address] [address] HPon 01-24-2024 HP History Of Present Nori [...] In April 2019 he presented to the [facility] with atrial fibrillation with controlled [...] cardiac remod (more content not included)... Normal [facility] MRSA/MSSA DNA NASALon 2023 MRSA DNA Negative Normal Negative [facility] Comment on above: Order Comment: Testi ng [...] preclude nasal colonization. Performed By: #### L [id number] ####[facility] ([facility])[address] [place] [address] MSSA DNA Negative Normal Negative [facility] Comment on above: Order Comment: Testi ng [...] preclude nasal colonization. Performed By: #### L [id number] ####[facility] ([place])[address] [place] [address] NURSNOTEon 01-24-2024 NURSNOTE CHG wipes completed. Normal [facility] POCT GLUCOSE METER UNSOLICIT ED RESULTSon 01-24-2024 Glucose [Mass/Vol] 146 mg/dL High 70-105 [facility] Comment on above: Order Comment: Waive d Testing in the ED is performed under the ED CLIA certificate #[id number]. Result Comment: [facility] di3 Performed By: #### L [id number] #### [facility] ([facility]) [address] [place] [address] TYPE AND SCREENon 01-24-2024 AB SCREEN Negative Normal [facility] Comment on above: Performed By: #### L [id number] ####[facility], ABO group Nom (Bld) A Normal [facility] Comment on above: Performed By: #### L [id number] ####[facility], RH TYPE IN BLOOD Positive Normal [facility] Comment on above: Performed By: #### L [id number] ####[facility], Basophils Auto (Bld) [#/Vol] on 01-18-2024 Basophils (Bld) [#/Vol] 0.0 10 3/uL 0.0-0.1 [facility] Basophils/100 WBC Auto (Bld) on 01-18-2024 Basophils/100 WBC (Bld) 0.4 % 0.2-2.0 [facility] Eosinophils/100 WBC Auto (Bl d)on 01-18-2024 Eosinophils/100 WBC (Bld) 2.3 % 0.9-7.0 [facility] Erythrocyte distribution wid th Auto (RBC) [Ratio]on 01-18-2024 Erythrocyte distribution width (RBC) [Ratio] 13.6 % 11.0-15.0 [facility] Estimated glomerular filtrat ion rate (GFR) non- Americanon 01-18-2024 GFR/1.73 sq M.predicted among non-blacks MDRD (S/P/Bld) [Vol rate/Area] 48 mL/min/{1.73_m2} Low >=60 [facility] Hematocrit Auto (Bld) [Volum e fraction]on 01-18-2024 Hematocrit (Bld) [Volume fraction] 37.0 % Low 42.0-54.0 [facility] Hemoglobin [Mass/volume] in Bloodon 01-18-2024 Hemoglobin (Bld) [Mass/Vol] 11.7 g/dL Low 14.0-18.0 [facility] Laboratory - Chemistry and C hemistry - challengeon 01-18-2024 Calcium [Mass/Vol] 8.6 mg/dL 8.5-10.1 [facility] Chloride [Moles/Vol] 103 mmol/L 98-107 [facility] CO2 [Moles/Vol] 30.4 mmol/L 21.0-32.0 [facility] Creatinine [Mass/Vol] 1.44 mg/dL High 0.70-1.30 [facility] GFR/1.73 sq M.predicted MDRD (S/P/Bld) [Vol rate/Area] 58 mL/min/{1.73_m2} Low >=60 [facility] Glucose [Mass/Vol] 140 mg/dL High 74-106 [facility] Potassium [Moles/Vol] 4.5 mmol/L 3.5-5.1 [facility] Sodium [Moles/Vol] 140 mmol/L 136-145 [facility] Urea nitrogen [Mass/Vol] 17.0 mg/dL 7.0-18.0 [facility] Urea nitrogen/Creatinine [Mass ratio] 11.8 mg/mg [facility] - Hematology and Cell countson 01-18-2024 Immature granulocytes/100 WBC (Bld) 0.0 % 0.0-0.5 [facility] Leukocytes [#/volume] correc iván for nucleated erythrocytes in Blood by Automated counon 01-18-2024 WBC corrected for nucl RBC Auto (Bld) [#/Vol] 4.8 10 3/uL 4.0-11.0 [facility] Lymphocytes Auto (Bld) [#/Vo l]on 01-18-2024 Lymphocytes (Bld) [#/Vol] 1.6 10 3/uL 1.2-3.8 [facility] Lymphocytes/100 WBC Auto (Bl d)on 01-18-2024 Lymphocytes/100 WBC (Bld) 33.8 % 20.5-60.0 [facility] MCH Auto (RBC) [Entitic mass ]on 01-18-2024 MCH (RBC) [Entitic mass] 28.3 pg 25.9-34.0 [facility] MCHC Auto (RBC) [Mass/Vol]on 01-18-2024 MCHC (RBC) [Mass/Vol] 31.6 g/dL 29.9-35.2 [facility] MCV Auto (RBC) [Entitic vol] on 01-18-2024 MCV (RBC) [Entitic vol] 89.6 fL 80.0-94.0 [facility] Monocytes Auto (Bld) [#/Vol] on 01-18-2024 Monocytes (Bld) [#/Vol] 0.6 10 3/uL 0.3-0.8 [facility] Monocytes/100 WBC Auto (Bld) on 01-18-2024 Monocytes/100 WBC (Bld) 11.8 % 1.7-12.0 [facility] Neutrophils Auto (Bld) [#/Vo l]on 01-18-2024 Neutrophils (Bld) [#/Vol] 2.5 10 3/uL 1.4-6.5 [facility] Neutrophils/100 WBC Auto (Bl d)on 01-18-2024 Neutrophils/100 WBC (Bld) 51.7 % 43.0-75.0 [facility] No Panel Informationon 01-17 Eosinophils # (Auto) 0.1 10 3/uL 0.0-0.7 [facility] Immature Granulocyte # (Auto) 0.00 10 3/uL 0.00-0.03 [facility] Orders Onlyon 01-18-2024 Orders Only [id number] Amina Goncalves 1945 M Date Provider Department Center 01/18/2024 [facility] Family History Problem Relation Age of Onset Cancer Mother Heart attack Other Family Status - Relation Status Age at Mother Other Normal [facility] Platelet mean volume Auto (B ld) [Entitic vol]on 01-18-2024 Platelet mean volume (Bld) [Entitic vol] 11.4 fL 9.5-13.5 [facility] Platelets Auto (Bld) [#/Vol] on 01-18-2024 Platelets (Bld) [#/Vol] 186 10 3/uL 150-450 [facility] RBC Auto (Bld) [#/Vol]on RBC (Bld) [#/Vol] 4.13 10 6/uL Low 4.70-6.10 [facility] Serum or plasma anion gap de terminationon 01-18-2024 Anion gap [Moles/Vol] 11.1 mmol/L [facility] Optical coherence tomography study reporton 10-28-2023 [facility] Radiology Study observation (narrative) [facility] Coding Summaryon 07-11-2023 Coding Summary HTMLBase 64 VbmccukdWWa3yLu+PGhlYWQ+PE 7GTSMsR44bpMNliL7vE3JEVQkB FmvjKLSTVSyZRtHvslXmPF2stG NjZXJu IC8+AN0mAKIlNgupvAHod7Z8tV A4J89oyk4eDCbakYO5SWBjVmZa xwxln2ffcVm4SVafQlqiYlHf WKTeeP57DUB1wL35Au35yZIvdQ Pez3dswRx9OsIoKUOhQGN4pCnc YBkdp5YlLJNnW39yfEQhh0O8 YKNjqCdaaBJbMyQurEX7dD6pZA xuhvspx1ehlovkNpa9jf74oBKc g5M2gUM7K5BopcF4FODxsXVv NxkrrEUHpX0pfwvuv6qokpayTq ImQOIqLNn9KYi4LTIefMxbPfDb RP90CMZ3CNLwehMaY1EcFYYy wUmpTiR7g4S7Ei2DB9EDFbsbI8 VNTUFSWTwvdGQ+NO80if38Z5Ck YdffRoo9GPAxFNB6qVD7qN4y HZOmUUcih4T6aZL5V9EqyzGflz 9xv0piTJCgMUaxQ60piHXoh6O9 JBGzvFN0OWEtwCxjCgNugC20 Oyc+HWGnsJpvf1TkQibtg0vvk2 rywRr4OknvHGXfoeUviKwqYSE7 t9SaLb7oXRWycVS0mEO3oS0d DeDmSpG2ALpfR916PtAofBWfTt rcP60uS7HagFO+IHFzVxo6TKCw iXfySE9cN3ScZOIzqowqgXLi wYkuUK9hLISryujsJLAmiE6tUK AqV5b6DzBuDhJ2PPraJ4DdMCIg fmhrRv77aK0dQpVeDaT8ZHtb B9TazdX7ZGTohOLkLVrmPFQ6B5 5hf2I4HGUwNOMiFWS9zYS3vW9u bGlnbjogbGVmdDsgdmVydGlj SVonBDrzP325CGZeqTrpHiDoYG luZyBEYXRlOiAgMTAvMTYvMjAy MzwvdGQ+FQBiFKU0zUcsYYCl wECrTNmjAr4dgKokwYcdSK6cJI JxviuaCFXsbC0nKISegLGmkUdc DY7oMXAuqhaoc197RzQsXLI3 ZBMezSOeM3VkiG5pCxJhSVTrNR LwE5GxbAQxGXonM807MCmsLjW4 YBJfsfKdN7MpZZZtmVvvHyV9 d2I5Ci6Ny0DzczplK7RwfWBeZz HzYkfhDQv3P6DhFxaimOF+PC90 LFPpCO05FTw9ORJ7dJwiDOay KIShK3TulE4vBhJtKVMkXYVpZo c+PHRhYmxlIHdpZHRoPScxMDAl XxNwnQsdHK9dLz0bELZkDKKh vTfjvPWhUwQhx3scFQMlMTauLR 3njYfaL6SwxLY2RLNpo8e1Wc82 O71jL5MceRT+NZQaqSC8hAG6 dP9pJoKvUbI1COtvB909IwUmlF HaEsndd1rpu6dqlZi3BqR9EFDm bzJfeJegWFX7u5GpHl47L09q IHdpZHRoPSIxNSUiIHZhbGlnbj 8zvA1iYo8+IKUesRD0tXT7iK6k GsUrHjC6LWsbU784FiDfyIEm Gjqsj3ayp5qsfTe4WlRmVBEnrg ZgqXgxJIJ2s1MdVd73N3GcbAtn n5XhTjv1uq97zXGtm7V7lQL1 N5JwHXEjaazdoDFatSevPQ9dYA EfsnvsXTFndQ5yIKTxV2j4HvJy CiY1QJxjQ2LtamQ9HFZcoCVm UQGqdIPTkR5ettfff9fbrbtlRx MkJQUgWGa5NJx3LSCnxHubKqFk ULJ0LgG5MVM0pHJmqJ4ppRlm lxzyrM2rVuh+PLB5rLYrtFQQEL 1lOjwvdGQ+ARCiVWJ3wZgiFKjm QLMtlH2mHJFlZ9r3GeIdAaD3 VEhuM2XfdjB0PJVrwQTpGEDcdP JTqZ3pelang2kfhqapYeOdFYFd QZt5SBj2INAqkRbzAyTkNBF0 QhQ5DKA0rTCdfD0kfHnswszkjB 9wOyc+EnvrmLstOSV1IAh4Z3Xk Xcc0GSMgwYioXY4emFDdXUeo Xf8qtLltlRrzFV2xBBCjyfggd5 49XpQfb5qvFIGphRUgHZgfIDI3 D80tn9N0MDMhJUPrKAT5mGE9 pD5byRhiowpxwYHlxAzmshSabC rbATnzXOlzY503IZWjfUsbCfYt RGs2R4VbZjx8IODbsDjlTT2c lMSzCQuvIg5mfQhfjHuzJH6nRM Ndlnets253OvCgn6gqILBayOJc XGluKPF4P69nl5X0KJMnEVCl OVI4mGT4bX9npUfrumpohFOqxR cxmtDnuUwuDZnkBVfmU418ORPv dObwSxOxcDv5L2EfLzu8XFVo yVspVF0raHVdNJrlYc9neJrnaW vgST0gLNFcfohtt848WvMek3mz IALnhNNqRDzeASP3H71uv5U5 CSRnRXNmTOE4fPS8oS2rcFtqdg ogbGVmdDsgdmVydGljYWwtYWxp S588PBMuhXqxMtYtzZupdyRb PBziNPo8I3UcVnhjlLP+PC90YW SqDR36dUPigKIbe6ecoJf0StRw XXUjMTM2uQluNSxlv2IeCSOu W07wrJXpf1W3VVDgzDilqFQpKs PrlAS7hQ5bAFpwucgwe2amwyzb Unsiw7zilp35zY01Y32pOJij ULJxFTXgSYKxKEOwkJevgl9qzV 9wIi8+AHHwcKE8tER2dV4pZYTd GoW0OPsvI607AxGrdMStIgdc q7lpu3omeLg4QsQ9XYQhhmIyqS suWHM9p0OlXw37D48yFFviMZMv XUIdWBUjPPEicPxves8zyV2w Ii8+IEBhrKR2rRE9tQ4fNiKlCc M9DFrrX995TdAsrCOxRwuqA97p Q9RsfOS+YEOiHbk0HMGwyMgu OL2mzMPuOIydTd4tOOE3JcDsKs EeTWbiL7CfIMIzhvfebcjpiAL3 ECKoGFRckY11Wq8bwBliRARc kPBQfY7avvaec6iipvbvSgAzNO VgINa7HYf2NECkvLkbTeXvCUG1 JwH3JBG9yALszJ4ziLjxliri mI9rF0XlZFXncgitMp29eM3yFc VmIyP8PNwcFds+C7VYZXLbWPNO P6ULFLGWOIBNEQHLJT59GA87 dCTix4K2aAW7D0UpOFRszlshee sdvRL7VFKzZVHibH07vLPgEVmp Sw7pb9N7b184AUKiLSHeeJ82 Bu4whIipQMMjhTHLnA0mvzywl9 xwdczeTjCgSDLmNFt4EWw8UPFm jXiwRnPfZKY5WcA7OVG5kHYa nL7isKgvtkplyG6zEkh+MDQvMj hdZHu6SizvcRR+BGKiDKU3tWjs TYnlRWKmhL2kZWPaG6s3FyEk CzW0WIxnB4ByWJUlrffsKl38vC 5zDkWeExZ8ERjcM5AtaiY2XEAn pMEfLQneJFN3L05ch1Z3AMKx IRHpKRP8wCK5uS1zxSzbrciqwG WfiLghrdAxyJukWQxbRQtvO776 EINqlSyhPgl9APmpMEYhPO55 KM62yRPes6T6eCJ6J5VbGYUjsz usnsfwrOC1GTReRAFywO49aQJl CAqaEg9gu0A8j337LYJsXJBo eO43Ou0ztWghFNRvrBLNmD3nmf ugk5mmsjjkBvToVCZwAOa9LFc5 UECebLsjFjMnZSP1XgC9DYZ2 aLGznR4inPjwwwzufE4yVjv+TU FMRTwvdGQ+RDHiDHO9gAkaGQjc KAOnjD5rMOBcO0i6FeJbTmT1 KGacL7ZaXRZzqeuoXt13fU1uLa NzTxL5DVhwU1IiysE8YJIxwPSj VBxyEVB5M50zi5R7MXRwPMYf GKQ1sUT9lI2shQtembrmqFMonT blzcPxrEprBNzgWVarT257JSBw yDmtClZyVYClIF8lzFykgXO+ LA43fu30F5GgIpocAwn1COCaDJ O5nWZ1hR1kMJPgOStuw1C7xWQ0 X1OkksOtsp0tt3bkJWFzCVqd M85cgNTzt6O9QMExaFT2PEXftC nvYnEmyC88Vug+PCNsuJigk8Bs Mipza9fhs8eoeQu7KhWpMESv btBcwFctNCF2c7MhNn42P65zAI gvRKNlBIOlSOOiWFXyrIxwkj3a kN0pXn3+JTZqyJC5aSG5rB6z VbEmGpQ9SLpiH070HoAibOKaVu qdv0jrb9wayQa6JmRoEVRckfCv iPdcLEU2a3NuSk00L3MtcLny f2MdRdd7rb91aYOsb5K0aZK9J8 ToDRQmbnlbxBHztYjwSF6qGNNw kqzjRJYheQ6pDBOgE5u7ZhDd OxT6GJhoZ1VwhnR2XQFtaAUuNA HqyJILrD2dfoyoj3acoedkEaHo LMZaEFf4EEj7YVEctYeaStTo QOY8UxK6ANW5lJNzhL9pzJgnjw xmtA1iVcl+HKa9u9zhzJDaSV2m nOA9AW60IB46vFJnx0Z4zAM0 R4EfRKCdpgxwiobeiPP1NXZiQG GygC66Vc9ukFfpTy9iYNQzCAI0 SQLmkESvS1VywP3oLvQbPNMu TRWcG6EfgLFzMSmgA695NQpmWr M6DDQrnjUaH5IkFFLupLemOdA4 s8F9Wt6ZXI37IY58AD57pONt r2L6iVW7K4RmMMZukmeawfgjfR K6IGGgHKKtyS79Ux8jdPkiHz4b GMNaDTI0NZHaoIQwK1IsfH7a NkYdHCDkRIVrX4YhkKTgMUwiY9 06DFdqDrY5ZNMbkbAbP4YwMNEu uLuqZxI3d2Z4Ud6VZo42GD33 MD36xXDpf6O2dEX4O8QiAQYeeo kpoyijcFY0LKGxTHGwoY60Aj1o cOeqEi8lXATnLJR9JHVdwHTi N8HtcO0lEfIgRODbHPIrY2VqrV QrILptF243AOjgKjY4ABSbceMh M1CfPLBenGgaSdC5j0X5Jq0P ZMhnsfy0N4BfArhhqKQ+PC90YW GbYD07xZGywMJov1tseTm7UqXp DUKaOZG8kWrvMSocj1IjBLLe Y29 (more content not included)... Normal [facility] ED Clinical Summaryon 2022 ED Clinical Summary [facility] - Emergency Department [address] [place] [address] [id number] ED Clinical Summary PERSON INFORMATION Name: TITO GONCALVES Age: 78 Years Sex: MALE : 1945 MRN: Acct#: Visit Reason: Eye Injury; Fall; FALL/LT EYE LAC Arrival: 07/05/2023 16:48:26 Discharge: 07/05/2023 18:40:00 LOS: 000 01:52 Check In: 07/05/2023 16:48:26 Checkout:07/05/2023 18:40:00 Address: [address] [place] [address] [facility] [id number] PCP: Augustine Metz PROVIDER INFORMATION Provider Role [...] Patient/family/caregiver verbalizes understanding of instructions given Comment: [facility] ED Patient Education Noteon 07-05-2023 ED Patient Education Note Education Materials [facility] ED Patient Summaryon 023 ED Patient Summary [facility] - Emergency Department [address] [place] [id number] PATIENT DISCHARGE INSTRUCTIONS Patient Information Name: TITO GONCALVES Age: 78 Years Date of : 1945 Reason For Visit: Eye Injury; Fall; FALL/LT EYE LAC Arrival Time: 07/05/2023 16:48:26 Primary Care Physician: Augustine Metz Attending Physician: Colin Song DO Comment: Visit Diagnosis: Diagnoses This Visit Eye Injury ([id number]) Fall ([id number]) The Pharmacy at [facility] is open Tuesday through Tuesday from [...] alcohol and/or drug addiction problems; contact the [facility] 18/04 Crisis Hotline -Text 4HQRL uv 837793. If you received any narcotics, sedation, or [...] and treatment you received today in the [facility] Emergency Department were for an urgent problem and are not intended as complete care. It is important for you to follow up with a doctor, nurse practitioner, or physician?s mental health assistant for ongoing care. If your symptoms [...] so we can reach you if necessary. [facility] Emergency Department has provided you with a complete list of medications post discharge. Please inform your navy senior officer/provider of your visit and for further instruction [...] to relieve symptom (more content not included)... [facility] Phone Msgon 02-01-2023 Phone Msg - [...] his address on file. Normal [facility] CBC AUTO DIFFon 2023 BASO # 0.0 103/ul Normal 0.0-0.1 [facility] Comment on above: Performed By: #### C BC #### [facility] [address] [place] [address] Dr. Arjun Menjivar Basophils/100 WBC (Bld) 0.4 % Normal 0.2-2.0 [facility] Comment on above: Performed By: #### C BC #### [facility] [address] [place] [address] Dr. Arjun Menjivar EO # 0.1 103/ul Normal 0.0-0.7 [facility] Comment on above: Performed By: #### C BC #### [facility] [address] [place] [address] Dr. Arjun Menjivar Eosinophils/100 WBC (Bld) 1.5 % Normal 0.9-7.0 [facility] Comment on above: Performed By: #### C BC #### [facility] Laboratory [address] [place] [address] Dr. Arjun Menjivar Erythrocyte distribution width (RBC) [Ratio] 13.7 % Normal 11.0-15.0 [facility] Comment on above: Performed By: #### C BC #### [facility] Laboratory [address] [place] [address] Dr. Arjun Menjivar Hematocrit (Bld) [Volume fraction] 41.9 % Critically low 42.0-54.0 [facility] Comment on above: Performed By: #### C BC #### [facility] Laboratory [address] [place] [address] Dr. Arjun Menjivar Hemoglobin (Bld) [Mass/Vol] 13.7 g/dL Critically low 14.0-18.0 [facility] Comment on above: Performed By: #### C BC #### [facility] Laboratory [address] [place] [address] Dr. Arjun Menjivar IG # 0.02 10e3/ul Normal 0.00-0.03 [facility] Comment on above: Performed By: #### C BC #### [facility] [address] [place] [address] Dr. Arjun Menjivar IG % 0.3 % Normal 0.0-0.5 [facility] Comment on above: Performed By: #### C BC #### [facility] [address] [place] [address] Dr. Arjun Menjivar LYMPH # 1.4 103/ul Normal 1.2-3.8 [facility] Comment on above: Performed By: #### C BC #### [facility] Laboratory [address] [place] [address] Dr. Arjun Menjivar Lymphocytes/100 WBC (Bld) 16.9 % Critically low 20.5-60.0 [facility] Comment on above: Performed By: #### C BC #### [facility] [address] [place] [address] Dr. Arjun Menjivar MANUAL DIFF REQ NO Normal [facility] Comment on above: Performed By: #### C BC #### [facility] [address] [place] [address] Dr. Arjun Menjivar MCH (RBC) [Entitic mass] 28.8 pg Normal 25.9-34.0 [facility] Comment on above: Performed By: #### C BC #### [facility] [address] [place] [address] Dr. Arjun Menjivar MCHC (RBC) [Mass/Vol] 32.7 g/dL Normal 29.9-35.2 [facility] Comment on above: Performed By: #### C BC #### [facility] [address] [place] [address] Dr. Arjun Menjivar MCV (RBC) [Entitic vol] 88.2 fL Normal 80.0-94.0 [facility] Comment on above: Performed By: #### C BC #### [facility] Laboratory [address] [place] [address] Dr. Arjun Menjivar MONO # 0.5 103/ul Normal 0.3-0.8 [facility] Comment on above: Performed By: #### C BC #### [facility] [address] [place] [address] Dr. Arjun Menjivar Monocytes/100 WBC (Bld) 5.9 % Normal 1.7-12.0 [facility] Comment on above: Performed By: #### C BC #### [facility] [address] [place] [address] Dr. Arjun Menjivar NEUT # 6.0 103/ul Normal 1.4-6.5 [facility] Comment on above: Performed By: #### C BC #### [facility] [address] [place] [address] Dr. Arjun Menjivar Neutrophils/100 WBC (Bld) 75.0 % Normal 43.0-75.0 [facility] Comment on above: Performed By: #### C BC #### [facility] [address] [place] [address] Dr. Arjun Menjivar Platelet mean volume (Bld) [Entitic vol] 11.4 fL Normal 9.5-13.5 [facility] Comment on above: Performed By: #### C BC #### [facility] [address] [place] [address] Dr. Arjun Menjivar PLT 169 103/ul Normal 150-450 [facility] Comment on above: Performed By: #### C BC #### [facility] Laboratory [address] [place] [address] Dr. Arjun Menjivar RBC 4.75 106/ul Normal 4.70-6.10 [facility] Comment on above: Performed By: #### C BC #### [facility] [address] [place] [address] Dr. Arjun Menjivar WBC 8.0 103/ul Normal 4.0-11.0 [facility] Comment on above: Performed By: #### C BC #### [facility] [address] [place] [address] CSPINE WO CONon [...] by: SALINA ESPINOZA Date: 2023 16:25 Normal [facility] CT HEAD WO CONon 2023 CT HEAD [...] TOSHIA ANDRES Date: 2023 21:30 Normal [facility] PROF 14(COMP METB)on 01-21- 023 Albumin [Mass/Vol] 3.7 g/dL Normal 3.4-5.0 [facility] Comment on above: Performed By: #### C MP ####[facility] [address] [place] [address]Dr. Arjun Menjivar Albumin/Globulin [Mass ratio] 1.1 {ratio} Normal [facility] Comment on above: Performed By: #### C MP ####[facility] [address] [place] [address]Dr. Arjun Menjivar ALP [Catalytic activity/Vol] 87 U/L Normal 46-116 [facility] Comment on above: Performed By: #### C MP ####[facility] [address] [place] [address]Dr. Arjun Menjivar ALT [Catalytic activity/Vol] 26 U/L Normal 16-63 [facility] Comment on above: Performed By: #### C MP ####[facility] [address] [place] [address]Dr. Arjun Menjivar Anion gap [Moles/Vol] 9.2 mmol/L Normal [facility] Comment on above: Performed By: #### C MP ####[facility] [address] [place] [address]Dr. Arjun Menjivar AST [Catalytic activity/Vol] 20 U/L Normal 15-37 [facility] Comment on above: Performed By: #### C MP ####[facility] [address] [place], [place] [address]Dr. Arjun Otto Bilirubin [Mass/Vol] 0.4 mg/dL Normal 0.2-1.0 [facility] Comment on above: Performed By: #### C MP ####[facility] [address] [place], [place] [address]Dr. Arjun Otto Calcium [Mass/Vol] 9.1 mg/dL Normal 8.5-10.1 [facility] Comment on above: Performed By: #### C MP ####[facility] [address] [place], [place] [address]Dr. Arjun Menjivar Chloride [Moles/Vol] 105 mmol/L Normal 98-107 [facility] Comment on above: Performed By: #### C MP ####[facility] [address] [place], [place] [address]Dr. Arjun Otto CO2 [Moles/Vol] 28.9 mmol/L Normal 21.0-32.0 [facility] Comment on above: Performed By: #### C MP ####[facility] [address] [place], [place] [address]Dr. Arjun Otto Creatinine [Mass/Vol] 1.23 mg/dL Normal 0.70-1.30 [facility] Comment on above: Performed By: #### C MP ####[facility] [address] [place], [place] [address]Dr. Tannashukri Otto EGFR-AF CITIZEN [place] >60 Normal >=60 [facility] Comment on above: Performed By: #### C MP ####[facility] [address] [place], [place] [address]Dr. Arjun Menjivar EGFR-NON AF CITIZEN OF [place] 57 mL/min/1.73m2 Critically low >=60 [facility] Comment on above: Performed By: #### C MP ####[facility] [address] [place], [place] [address]Dr. Arjun Menjivar Globulin (S) [Mass/Vol] 3.4 g/dL Normal [facility] Comment on above: Performed By: #### C MP ####[facility] [address] [place] [address]Dr. Arjun Menjivar Glucose [Mass/Vol] 126 mg/dL Critically high 74-106 [facility] Comment on above: Performed By: #### C MP ####[facility] [address] [place] [address]Dr. Arjun Menjivar Potassium [Moles/Vol] 4.1 mmol/L Normal 3.5-5.1 [facility] Comment on above: Performed By: #### C MP ####[facility] [address] [place], [place] [address]Dr. Arjun Menjivar Protein [Mass/Vol] 7.1 g/dL Normal 6.4-8.2 [facility] Comment on above: Performed By: #### C MP ####[facility] [address] [place], [place] [address]Dr. Arjun Menjivar Sodium [Moles/Vol] 139 mmol/L Normal 136-145 [facility] Comment on above: Performed By: #### C MP ####[facility] [address] [place], [place] [address]Dr. Arjun Menjivar Urea nitrogen [Mass/Vol] 12.0 mg/dL Normal 7.0-18.0 [facility] Comment on above: Performed By: #### C MP ####[facility] [address] [place], [place] [address]Dr. Arjun Menjivar Urea nitrogen/Creatinine [Mass ratio] 9.8 mg/mg Normal [facility] Comment on above: Performed By: #### C MP ####[facility] [address] [place], [place] [address]Dr. Arjun Menjivar PROTIMEon 2023 INR Coag (PPP) [Relative time] 2.90 {INR} Normal [facility] Comment on above: Performed By: #### P TT, PT ####[facility] [address] [place], [place] [address]DrMago Menjivar INR GUIDELINES SEE BELOW Normal [facility] Comment on above: Result Comment: PIOTR RED INR: 2.0 - 3.0 CONDITIONS NOT LISTED BELOW 2.5 - 3.5 FOR PROSTHETIC HEART VALVE REPLACEMENT 2.5 - 3.5 RECURRENT THROMBOSIS Performed By: #### P TT, PT ####[facility] [address] [place], [place] [address]TiMago Cisseshukri Otto PT Coag (PPP) [Time] 28.9 s Critically high 9.0-11.6 [facility] Comment on above: Performed By: #### P TT, PT ####[facility] [address] [place], [place] [address]TrMago Arjun Otto PTTon 2023 aPTT Coag (Bld) [Time] 37.7 s Critically high 22.3-36. 2 [facility] Comment on above: Performed By: #### P TT, PT ####[facility] [address] [place] [id number] Cisseshukri Menjivar XR PELVIS 1_2 VIEWSon 2022 XR [...] by: LINDA WANG Date: 2023 16:14 Normal [facility] XR ERCP 1 HOUR FLUOROon 10-27 XR ERCP 1 HOUR FLUORO Fluoroscopic maryam rey for ERCP 11/09/2022 6:30 AM OPTION TRADER History: DR ORDER;OTHER REASON Tech notes: WHAT [...] by: Radha Haji MD 11/10/2022 8:01 AM OPTION TRADER Technologist: EDITA Dictated By: RADHA HAJI MD Signed By: RADHA HAJI MD Signed Out: 11/10/22 09:01:42 Normal [facility] Anesthesiaon 11-09-2022 Anesthesia Patient: YE GONCALVES Age: [...] status: euvolemic. Notes: Normothermia. Normal [facility] Anesthesia Patient: YE GONCALVES Age: 77 years [...] release 325 mg = 1 caps, ORAL, [id number] trazodone = Desyrel 50 mg, ORAL, BID [...] available Procedure history: Endoscopic Retrograde Cholangiopancreatography (ERCP). (94026) on 11/09/2022 at 77 Years. Endoscopic Retrograde Cholangiopancreatography (ERCP). (13508) on 08/14/2021 at 76 Years. Esophagogastroduodenoscopy , flexible, transoral; with endoscopic ultrasound examination limited to the esophagus, stomach or duodenum, and adjacent structures (86116) on 07/10/2021 at 76 Years. Social History [...] Verbal misinterpretations may occur. Normal [facility] ENDO Initial Data VS HW Prep -Texton [...] : 11/09/2022 04:20 EST Kaylyn Bettencourt RN 11/09/2022 7:09 EST Anesthesia/Transfusions Anesthesia/Transfusions : Prior anesthesia Accept Blood Products if Necessary : Yes Kaylyn Bettencourt RN 11/09/2022 7:09 EST Normal [facility] ENDO Outpatient Admission Da Tristin 11-09-2022 ENDO Outpatient Admission Data-Text Endoscopy OP Admission Data Entered On: 11/09/2022 7:12 EST Performed On: 11/09/2022 7:09 EST by Rosalinda Bettencourt RNa Assessment Mobility : Ambulatory Mental Status : Alert Oriented : Person, Place, Time Pacemaker/AICD : na Heart : Regular Lungs : Clear Abdomen : Soft Bowel Sounds All Quadrants : Present Prosthesis/Metal : BL knees Glasses : Yes Dentures : Yes Person Driving Pt Home : daughter Amna Surgeon Speak with Development Team Lead : Yes Voided : No Pain Level and Site : 0 Kaylyn Bettencourt RN 11/09/2022 7:09 EST Present on Admission Medical Devices : None Medical Devices for Med Administration : None Kaylyn Bettencourt RN 11/09/2022 7:09 EST Vikas Coma Eye Opening Response Bates : Spontaneously Best Verbal Response Bates : Oriented Best Motor Response Vikas : [...] Bettencourt RNa - 11/09/2022 7:09 EST Normal [facility] Inpatient Patient Summaryon 11-09-2022 Inpatient Patient Summary [facility] Discharge Instructions [address] [place] [address] \\.br\\(Patient Copy)\\.br\\ \\.br\\ \\.br\\Name: TITO GONCALVES : 1945 \\.br\\Diagnosis: \\.br\\ \\.br\\Allergies: sulfa drugs; penicillins; iodine topical\\.br\\ \\.br\\Registration Date: 11/09/22\\.br\\.br\\.br\\ \\.br\\ Current Date Time: 11/09/2022 08:44:54 \\.br\\ \\.br\\Address: [facility] [employer] [facility] [address] \\.br\\Phone: [phone] \\.br\\ \\.br\\Primary Care Provider: \\.br\\Name: AUGUSTINE METZ\\.br\\Phone: [phone] \\.br\\ \\.br\\Thank you for choosing [facility] for your care. You are very important to us. Our goal is to demonstrate our high quality medical care and provide you with a very good patient experience.\\.br\\ You may receive a survey about our service. Please take the time to complete the survey and return it so we can continue to enhance our service.\\.br\\ Thank you again for allowing [facility] to care for your medical needs. If you have any questions about your care or follow up information please contact your doctor.\\.br\\.br\\Follow-up Instructions\\.br\\.br\\.br \\With: Address: When: \\.br\\PUJA HOLBROOK [facility] [address], [address] [place] [address]\\.br\\ Business (1) Within Call for Appointment \\.br\\.br\\.br\\.br\\.br\\P rocedure Images\\.br\\ Images \\.br\\Procedure images: \\.br\\.br\\ \\.br\\ERCP_0006.jpg \\.br\\ERCP_0005.jpg \\.br\\ERCP_0004.jpg \\.br\\ \\.br\\ERCP_0003.jpg \\.br\\ERCP_0002.jpg \\.br\\ERCP_0001.jpg \\.br\\. \\.br\\.br\\Medication Information\\.br\\Only Take The Medicines On This List. \\.br\\Keep This List and Bring It To Your Next Appointment. \\.br\\Medicines To Take At Home: \\.br\\ Medicine Name\\.br\\ (Generic Name) Amount to Take How to Take it How Often to Take it Additional Instructions Next Dose Due \\.br\\ amLODIPine 5 mg oral tablet\\.br\\(amlodipine) 5 mg By Mouth DAILY \\.br\\ aspirin\\.br\\(aspirin) 81 mg DAILY \\.br\\ Lipitor 10 mg oral tablet\\.br\\(atorvastatin) 10 mg By Mouth DAILY \\.br\\ benazepril 20 mg oral tablet\\.br\\(benazepril) 20 mg By Mouth DAILY \\.br\\ carvedilol 6.25 mg oral tablet\\.br\\(carvedilol) 6.25 mg By Mouth TWICE A DAY \\.br\\ clonazePAM 1 mg oral tablet\\.br\\(clonazepam) 1 mg By Mouth TWICE A DAY \\.br\\ omeprazole 20 mg oral delayed release capsule\\.br\\(omeprazole) 20 mg By Mouth DAILY \\.br\\ propafenone 325 mg oral capsule, extended release\\.br\\(propafenone) 325 mg By Mouth EVERY TWELVE HOURS (do not crush)\\.br\\.br\\.br\\.br\\ \\.br\\ trazodone = Desyrel\\.br\\(trazodone = desyrel) 50 mg By Mouth TWICE A DAY \\.br\\ warfarin 5 mg oral tablet\\.br\\(warfarin = jantoven, coumadin) 5 mg By Mouth DAILY \\.br\\ warfarin 7.5 mg oral tablet\\.br\\(warfarin = jantoven, coumadin) 7.5 mg By Mouth TUESDAY \\.br\\.br\\Understanding your home medicine is important to keeping [...] list with you to all follow up appointments.\\.br\\.br\\Pat ient education materials, if any, will display below\\.br\\[facility] ENDOSCOPY DEPARTMENT\\.br\\.br\\FOLLOW UP CARE\\.br\\? For biopsy results, please call your doctor?s office in six (6) business days. \\.br\\.br\\BECAUSE YOU WERE MEDICATED\\.br\\? DO NOT drive, operate machinery, make important decisions, sign legal documents, or perform activities that require coordination or balance for 24 hours. \\.br\\? Rest for the remainder of the day. You may resume normal activity tomorrow, unless your doctor told you otherwise. \\.br\\? For your safety, have a responsible adult with you for the remainder of the day and overnight. \\.br\\.br\\HOME MEDICATIONS\\.br\\? Continue taking your home medications as directed. \\.br\\? Certain medicines may increase your risk of bleeding and should only be resumed as directed by your doctor. These include Motrin, Advil, Aleve, all NSAIDs, Aspirin, Plavix, Coumadin, and other blood thinners/anticoagulants. \\.br\\DIET\\.br\\? Drink plenty of fluids today, unless your doctor told you otherwise. \\.br\\? Do not drink any kind of alcohol, including beer or wine. \\.br\\? Resume your diet as instructed. \\.br\\.br\\GO TO THE EMERGENCY ROOM IF YOU NOTICE ANY OF THE FOLLOWING: \\.br\\These could be signs of an infection or a complication.\\.br\\.br\\? Fever greater than 101 degrees\\.br\\? Persistent vomiting\\.br\\? Severe abdominal pain, other than gas cramps\\.br\\? Chest pain and/or shortness of breath\\.br\\? Any bleeding and/or black tarry sto (more content not included)... Normal [facility] OR Nursing Record - Endoon 0 11-09-2022 OR Nursing Record - Endo OR Nursing Record - Endo Summary Primary Physician: PUJA HOLBROOK MD Finalized Date/Time: 11/09/22 08:27:34 Pt. Name: TITO GONCALVES /Sex: 1945 Male Med Rec #: [id number] Physician: Financial #: [id number] Pt. Type: A Room/Bed: / Admit/Disch: 11/09/22 06:11:45 - Institution: Case Times - Endo Entry 1 Patient In Room Time 11/09/22 07:43:00 Out Room Time 11/09/22 08:24:00 Anesthesia Facility Times Induction Time 11/09/22 07:48:00 Stop Time 11/09/22 08:15:00 [place] Protocol Yes Completed Surgery Start Time 11/09/22 [...] Solomon RN, Minnie Role Performed Surgeon Primary Kettle Hand Primary Scrub Primary Time In 11/09/22 07:43:00 11/09/22 07:43:00 11/09/22 07:43:00 Time Out 11/09/22 08:24:00 11/09/22 08:24:00 02/14/23 08:24:00 Procedure ERCP(None) ERCP(None) ERCP(None) Last Modified By: Martha Haider RN, RN, Martha Barrera RN 11/09/22 08:21:41 11/09/22 08:21:41 11/09/22 08:21:41 Entry 4 Entry 5 Entry 6 Case Attendee Dena GAVIN, Josselin SPRINGER DO, LESLI PALMA, JYOTI Role Performed Kettle Hand Secondary Anesthesiologist Primary Anesthesia Asst/BARTENDER Time In 11/09/22 07:43:00 11/09/22 07:43:00 11/09/22 [...] Site ABDOMEN Protective Devices No Radiological Tech Goljoselin RT Simran Applied to Patient Last Modified [...] Haider RN 11/09/22 08:27 Normal [facility] Operative Reporton Operative Report Patient: YE GONCALVES [...] in clinic as scheduled. Normal [facility] Comment on above: Order Comment: Ida ng Attachment [id number] can be viewed in source system Missing Attachment [id number] can be viewed in source system Missing Attachment [id number] can be viewed in source system Missing Attachment [id number] can be viewed in source system Missing Attachment [id number] can be viewed in source system Missing Attachment [id number] can be viewed in source system Result Comment: PACU Phase I - Endoon 2022 PACU Phase I - Endo PACU Phase I - Endo Summary Primary Physician: PUJA HOLBROOK MD Finalized Date/Time: 11/09/22 08:55:35 Pt. Name: TITO GONCALVES/Sex: 1945 Male Med Rec #: [id number] Physician: Financial #: [id number] Pt. Type: A Room/Bed: / Admit/Disch: 11/09/22 06:11:45 - Institution: PACU I Case Times - Endo Entry 1 In PACU I 11/09/22 08:25:00 Ready for Transfer 11/09/22 09:19:00 Last Modified By: Sariah Schreiber RN 11/09/22 08:55:34 Finalized By: Sariah Schreiber RN Document Signatures Signed By: Sariah Schreiber RN 11/09/22 08:55 Normal [facility] POC Glucoseon 11-09-2022 Glucose [Mass/Vol] 131 mg/dL High 72-100 [facility] Comment on above: Performed By: #### 1 [id number] ####[facility] [id number] [place] [id number] Medical Director: Diogo Carcamo MD Preop - Endoon 11-09-2022 Preop - Endo Preop - Endo Summary Primary Physician: PUJA HOLBROOK MD Finalized Date/Time: 11/09/22 07:13:53 Pt. Name: TITO GONCALVES/Sex: 1945 Male Med Rec #: [id number] Physician: Financial #: [id number] Pt. Type: A Room/Bed: / Admit/Disch: 11/09/22 06:11:45 - Institution: Preop - Case Times - Endo Entry 1 Patient Arrival Time 11/09/22 06:31:00 Patient Ready for 11/09/22 07:11:00 Surgery Report Given to n/a Last Modified By: Kaylyn Bettencourt RN 11/09/22 07:13:51 Finalized By: Kaylyn Bettencourt RN Document Signatures Signed By: Kaylyn Bettencourt RN 11/09/22 07:13 Normal [facility] Provider Letter - Ambulatory on 11-09-2022 Provider Letter - Ambulatory AUGUSTINE METZ, [facility] [place] [address] RE: TITO GONCALVES 11/09/2022 Dear AUGUSTINE METZ [...] GI ERCP with Anesthesia Normal [facility] [place] Protocol/Pre-Proc TimeOut-Texton 11-09-2022 [place] Protocol/Pre-Proc TimeOut-Text [place] Protocol Entered On: 11/09/2022 7:13 EST Performed [...] - 11/09/2022 7:48 EST Normal [facility] Phone Msgon 11-08-2022 Phone Msg - From: [...] Pt was 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 Normal [facility] MRI ABDOMEN WO CONon 11-01- 023 MRI ABDOMEN WO CON EXAMINATION: MRI [...] SANTOS DC Date: 2022-11-01 09:53 Normal [facility] Phone Msgon 10-28-2022 Phone Msg - From: Fela Alexandre To: Caren Carvalho RN; Blanca Bazzi; Sent: 10/28/2022 09:12:23 EST Subject: Cardiac Clearance Caller Name: TITO GONCALVES; Caller Number: H Patient asking when to stop Coumadin. Colonoscopy scheduled 11/09/21 From: Blanca Bazzi To: Fela Alexandre; Sent: 10/28/2022 09:15:22 EST Subject: RE: Cardiac Clearance Caller Name: IVANNA TITO Yehuda; Caller Number: H Did he say who his Psychologist Industrial Organizational was? From: Caren Carvalho RN To: Blanca Bazzi; Fela Alexandre; Sent: 10/28/2022 09:50:53 EST Subject: RE: Cardiac Clearance Caller Name: TITO GONCALVES; Caller Number: H He sees Dr. Metz sent LM for pt-Per Dr. Metz, pt can be off his Coumadin 5 days prior to his procedure. Normal [facility] AMB GI Physician Progress No irma 10-26-2022 AMB GI Physician Progress Note Chief Complaint Abdominal pain History of Present Illness 77-year-old male with recurrent history of choledocholithiasis last ERCP was done a year ago in [place] Patient had admission in hospital in [place] with fever and chills Patient has had [...] Est Pt Mod MDM / 30-39 min 55069, 10/26/2022 16:13:00 EST, Abdominal pain / Pancreatic cyst MR CP, 10/26/2022, Routine, PAIN, Abdominal pain / Pancreatic cyst 2. Pancreatic cyst K86.2 Pancreatic cyst stable very low CEA levels suggestive of simple serous cyst versus inflammatory cyst. Asymptomatic Ordered: AMB Follow - Up Appt Amb, 10/26/2022 16:13:00 EST, 4 weeks AMB Office/Outpt Est Pt Mod MDM / 30-39 min [id number], 10/26/2022 16:13:00 EST, Abdominal pain / Pancreatic [...] extended release, 325 mg= 1 caps, ORAL, [id number] trazodone = Desyrel, 50 mg, ORAL, BID [...] Care Team Primary Care Physician AUGUSTINE METZ [phone] Attending Physician PUJA HOLBROOK MD [phone] . Health Maintenance Pending (in the next year) There are no current recommendations pending Satisfied (in the past 1 year) There are no satisfied recommendations within the defined date range Normal [facility] Comprehensive Intake - Texto n 10-26-2022 Comprehensive [...] in, 183 cm) Body Mass Index Measured Bhutanese : 18.85 kg/m2 BSA Bhutanese : 1.79 m2 Ht/Wt Measurement Refused by Patient? : No Abdulaziz GONZALEZ Lori - 10/26/2022 15:44 EST Vitals Systolic Blood [...] ABD pain 0-9/10 Require BP : Yes Patriciasandra GONZALEZLori - 10/26/2022 15:44 EST Pain Present : No actual or suspected pain Pain : 0 Pain severity quantified : No pain present Abdulaziz GONZALEZLori - 10/26/2022 14:56 EST Infection Screening - Ambulatory Exposure AND/OR close contact with a person under investigation or laboratory-confirmed COVID-19 individual within 14 days of symptom onset AND/OR any of the following: : No Do you live/work in a high risk situation (congregated living, hemodialysis, infusion clinic, chcf, assisted living, detention, homeless long-term, etc.)? : No Abdulaziz GONZALEZLori - 10/26/2022 14:56 EST Depression Screening Is patient currently : None of the Below Feeling Down, Depressed, Hopeless : Not at all Little Interest - Pleasure in Activities : Not at all Initial Depression Screen Score : 0 Depression Screening Score 0 : No Patriciasandra GONZALEZLori - 10/26/2022 14:56 EST Problems (As Of: 10/26/2022 15:47:21 EST) Problems(Active) Abnormal LFTs (liver function tests) (SNOMED CT :132624840 ) Name of Problem: Abnormal LFTs (liver function tests) ; Recorder: Blanca Bazzi; Confirmation: Confirmed ; Classification: Medical ; Code: 118490232 ; Contributor System: [employer] ; Last Updated: 07/01/2021 12:43 EDT ; Life Cycle Date: 07/01/2021 ; Life Cycle Status: Active ; Vocabulary: SNOMED CT Arthritis (SNOMED CT :9412125 ) Name of Problem: Arthritis ; Recorder: Blanca Bazzi; Confirmation: Confirmed ; Classification: Medical ; Code: 8180054 ; Contributor System: PowerChart ; Last Updated: 07/01/2021 12:43 EDT ; Life Cycle Date: 07/01/2021 ; Life Cycle Status: Active ; Vocabulary: SNOMED CT Choledocholithiasis (SNOMED CT :656615929 ) Name of Problem: Choledocholithiasis ; Recorder: PUJA HOLBROOK MD; Confirmation: Confirmed ; Classification: Medical ; Code: 279359110 ; Contributor System: PowerChart ; Last Updated: 07/01/2021 13:27 EDT ; Life Cycle Date: 07/01/2021 ; Life Cycle Status: Active ; Responsible Provider: PUJA HOLBROOK MD; Vocabulary: SNOMED CT Diabetes (SNOMED CT :271656203 ) Name of Problem: Diabetes ; Recorder: Blanca Bazzi; Confirmation: Confirmed ; Classification: Medical ; Code: 848064076 ; Contributor System: PowerChart ; Last Updated: 07/01/2021 12:43 EDT ; Life Cycle Date: 07/01/2021 ; Life Cycle Status: Active ; Vocabulary: SNOMED CT Gallbladder disease (SNOMED CT :004850047 ) Name of Problem: Gallbladder disease ; Recorder: Blanca Bazzi; Confirmation: Confirmed ; Classification: Medical ; Code: 147639124 ; Contributor System: PowerChart ; Last Updated: 07/01/2021 12:44 EDT ; Life Cycle Date: 07/01/2021 ; Life Cycle Status: Active ; Vocabulary: SNOMED CT GERD (gastroesophageal reflux disease) (SNOMED CT :076610754 ) Name of Problem: GERD (gastroesophageal reflux disease) ; Recorder: Blanca Bazzi; Confirmation: Confirmed ; Classification: Medical ; Code: 085794761 ; Contributor System: PowerChart ; Last Updated: 07/01/2021 12:44 EDT ; Life Cycle Date: 07/01/2021 ; Life Cycle Status: Active ; Vocabulary: SNOMED CT Hypertension (SNOMED CT :3928032798 ) Name of Problem: Hypertension ; Recorder: Blanca Bazzi; Confirmation: Confirmed ; Classification: Medical ; Code: 9840238482 ; Contributor System: PowerChart ; Last Updated: 07/01/2021 12:44 EDT ; Life Cycle Date: 07/01/2021 ; Life Cycle Status: Active ; Vocabulary: SNOMED CT Irregular heart rhythm (SNOMED CT :705616889 ) Name of Problem: Irregular heart rhythm ; Recorder: Blanca Bazzi; Confirmation: Confirmed ; Classification: Medical (more content not included)... [facility] Provider Letter - Ambulatory on 10-26-2022 Provider Letter - Ambulatory AUGUSTINE METZ, [address] [place] [address] RE: TITO GONCALVES 10/26/2022 Dear AUGUSTINE METZ [...] *.AMB Office Visit Note Normal [facility] Phone Msgon 10-22-2022 Phone Msg - From: Lise Lawrence MA To: Maia GAVIN, Caren; YUSEF UMANZOR, PUJA; Sent: 10/22/2022 09:40:42 EST Subject: symptoms/appointment Caller Name: TITO GONCALVES; Caller Number: H Tito Berg daughter, Amna Sousa [phone] called. She is asking if he can [...] other dilemma is he is leaving for [place] on 11/13 for 6 weeks. From: Caren Carvalho RN To: Howard GONZALEZ, Lise Lyon; Sent: 10/22/2022 09:47:07 EST Subject: [...] him until December. He has moved to [facility] and Tito would be considered a new patient. His daughter did not feel he was acutely ill and that he can wait for the appointment next Tuesday. Normal [facility] GLYCOHEMOGLOBIN A1Con 2022 ADA RECOMMENDATION SEE BELOW Normal [facility] Comment on above: Result Comment: ADA RECOMMENDED LIMIT 4.0 - 6.0 ADA THERAPEUTIC TARGET < 7.0 ACTION SUGGESTED > 7.0 Performed By: #### A 1C ####[facility] [address] [place], [place] [address]Ru. Arjun Menjivar Glucose [Mass/Vol] 163 mg/dL Normal [facility] Comment on above: Performed By: #### A 1C ####[facility] [address] [place], [place] [address]Tg. Arjun Menjivar HbA1c (Bld) [Mass fraction] 7.3 % Critically high 4.5-6.2 [facility] Comment on above: Performed By: #### A 1C ####[facility] [address] [place], [place] [address]Lv. Arjun Menjivar Dermatopathologyon 2 Dermatopathology Name: TITO GONCALVES Pathologist: KRISTEN OCONNOR MD Date of Procedure: 09/07/2022 Date Received: 09/07/2022 Date Reported 09/08/2022 Submitting Physician: MACARIO BUI MD, Location: [facility] Copy To/Referring/Attending: MD SABRA SIMS FINAL DIAGNOSIS 3 SLIDES, [facility] #[id number] (BX: 08/03/2022) A. 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 B. SKIN, RIGHT SYNAGOGUE, SHAVE BIOPSY: MELANOMA IN SITU, PRESENT ON [...] OCONNOR M.D. CANCER SUMMARY REPORT A. [facility], [facility] #[id number] (BX: 08/03/2022): SPECIMEN Procedure: Biopsy, shave Specimen Laterality: Right TUMOR Tumor Site: Skin of other and unspecified parts of face: Right rastafarian Histologic Type: Melanoma in situ, lentigo maligna [...] ADDITIONAL FINDINGS Additional Findings: None ADDITIONAL TESTING Mechanic General Operational Test Blocks: Normal Block: None Tumor Block: A1 Electronically Signed Out By KRISTEN OCONNOR MD/[facility] Diagnostic interpretation performed at [facility] [id number], [facility] [address] Microscopic Description: A. Microscopic examination reveals nests [...] OTHER Specimens Submitted As: A: 3 SLIDES, [facility] #[id number] (BX: 08/03/2022) Gross Description: Received for consultation from [facility] are three slides labeled [id number] (BX: 08/03/2022) along with the corresponding pathology report. Slide/Block Description 3 SLIDES, [id number]. Keep Slides: N Slides Returned: N Personal Consult: N Normal [facility] Comment on above: Performed By: #### D #### Dermatopathology GLYCOHEMOGLOBIN A1Con 2021 ADA RECOMMENDATION SEE BELOW Normal [facility] Comment on above: Result Comment: ADA RECOMMENDED LIMIT 4.0 - 6.0 ADA THERAPEUTIC TARGET < 7.0 ACTION SUGGESTED > 7.0 Performed By: #### A 1C ####[facility] [address] [place] [address]Dr. Arjun Menjivar Glucose [Mass/Vol] 151 mg/dL Normal [facility] Comment on above: Performed By: #### A 1C ####[facility] [address] [place] [id number]. Arjun Menjivar HbA1c (Bld) [Mass fraction] 6.9 % Critically high 4.5-6.2 [facility] Comment on above: Performed By: #### A 1C ####[facility] [address] [place] [id number]. Arjun Menjivar XR ESOPHAGUSon 06-28-2022 XR ESOPHAGUS [...] PABLO Date: 2022-06-28 14:07 Normal [facility] XR MODIFIED BARIUM SWALLOWon 09-20-2022 XR MODIFIED BARIUM SWALLOW EXAMINATION: XR MODIFIED [...] DC Date: 2022-06-15 11:11 Normal [facility] Ambulatory Visit Summaryon 0 05-03-2022 Ambulatory Visit [...] [facility] [address], [place] [address]- [phone] Medications What How Much When Instructions Unchanged [...] or concerns Unchanged omeprazole (omeprazole 20 mg Jc-) 1 Capsules By Mouth Every day Contact [...] (more content not included)... Normal [facility] Patient Educationon 05-03-20 Patient Education Urology Benign [...] Follow these instructions at home: ? Take [id number] and prescription medicines only as told by [...] You d (more content not included)... Normal [facility] Urology Office/Clinic Noteon 05-03-2022 Urology Office/Clinic Note Chief Complaint 1 year with KUB HPI Staff Tito is here today for a 1 year follow up with a KUB. KUB done on 04/26/22 at [facility] impression showed no appreciable urinary tract calculi. [...] URL [facility] [address], [place] [address]- [phone] Additional Instructions: PRN Patient Education Benign Prostatic [...] (more content not included)... Normal [facility] Comment on above: Result Comment: Elec tronically Signed By: Mc ALMONTE MD\\.br\\Date and Time Signed: 05/03/22 09:26 EDT\\.br\\Electronically Co-Signed By: Jerri Lyles\\.br\\Date and Time Co-Signed: 05/03/22 09:24 EDT RAD - MISCon 04-28-2022 RAD - MIS [id number] Normal [facility] XR KUB 1 VIEWon 04-27-2022 XR KUB [...] DC Date: 2022-04-27 06:18 Normal [facility] GLYCOHEMOGLOBIN A1Con 2021 ADA RECOMMENDATION SEE BELOW Normal [facility] Comment on above: Result Comment: ADA RECOMMENDED LIMIT 4.0 - 6.0 ADA THERAPEUTIC TARGET < 7.0 ACTION SUGGESTED > 7.0 Performed By: #### A 1C #### [facility] [address] [address] [address] Arjun Menjivar Glucose [Mass/Vol] 126 mg/dL Normal [facility] Comment on above: Performed By: #### A 1C #### [facility] [address] [address] [address] Arjun Menjivar HbA1c (Bld) [Mass fraction] 6.0 % Normal 4.5-6.2 [facility] Comment on above: Performed By: #### A 1C #### [facility] [address] [address] [address] Arjun Menjivar IRON AND TIBCon 04-07-2022 % SATURATION 25.4 % Normal [facility] Comment on above: Performed By: #### F ETIBC, B12FOL #### [facility] [address] [address] [address] Arjun Menjivar Iron [Mass/Vol] 62.0 ug/dL Critically low 65.0-175.0 [facility] Comment on above: Performed By: #### F ETIBC, B12FOL #### [facility] [address] [address] [address] Arjun Menjivar TIBC DIRECT 244.0 ug/dL Critically low 250.0-450. 0 [facility] Comment on above: Performed By: #### F ETIBC, B12FOL #### [facility] [address] [place] [address] Dr. Arjun Menjivar VIT B12 AND FOLATEon 022 Cobalamin (Vitamin B12) [Mass/Vol] 597.0 pg/mL Normal 193.0-986. 0 [facility] Comment on above: Performed By: #### F ETIBC, B12FOL #### [facility] [address] [place] [address] Dr. Arjun Menjivar FOLATE 21.50 ng/mL Normal 8.60-58.90 [facility] Comment on above: Performed By: #### F ETIBC, B12FOL #### [facility] [address] [place] [address] Dr. Arjun Menjivar CBCon 03-16-2022 ABSOLUTE BAS 0.0 10*3/uL Normal 0.0-0.2 [facility] Comment on above: Result Comment: Test ing performed at [place] [address] Performed By: #### R ENF, ACBC, PT #### [place] [address] ABSOLUTE EOS 0.00 10*3/uL Normal 0.0-0.7 [facility] Comment on above: Performed By: #### R ENF, ACBC, PT #### [place] [address] ABSOLUTE NEUTROPHIL COUNT 8.5 10*3/uL High 1.4-6.5 [facility] Comment on above: Performed By: #### R HUGH MAGDALENO, PT #### Testing performed at [address] [address] Basophils/100 WBC (Bld) 0.1 % Normal 0.0-2.0 [facility] Comment on above: Performed By: #### R HUGH MAGDALENO, PT #### Testing performed at [place] [id number] DTYPE AUTO DIFF Normal [facility] Comment on above: Performed By: #### HUGH FARIA, PT #### Testing performed at [place] [id number] Eosinophils/100 WBC (Bld) 0.0 % Normal 0.0-11.0 [facility] Comment on above: Performed By: #### R HUGH MAGDALENO, PT #### Testing performed at [place] [id number] Lymphocytes (Bld) [#/Vol] 0.60 10*3/uL Low 1.2-3.4 [facility] Comment on above: Performed By: #### R HUGH MAGDALENO, PT #### Testing performed at [address] [address] Lymphocytes/100 WBC (Bld) 6.4 % Low 20.0-55.0 [facility] Comment on above: Performed By: #### R HUGH MAGDALENO, PT #### Testing performed at [address] [address] Monocytes (Bld) [#/Vol] 0.4 10*3/uL Normal 0.0-0.7 [facility] Comment on above: Performed By: #### R HUGH MAGDALENO, PT #### Testing performed at [address] [address] Monocytes/100 WBC (Bld) 4.1 % Normal 0.0-10.0 [facility] Comment on above: Performed By: #### R TIMBOLUMA KnowlesBC, PT #### [place] [address] Neutrophils/100 WBC (Bld) 89.4 % High 37.0-75.0 [facility] Comment on above: Performed By: #### R LUMA MAGDALENOBC, PT #### [place] [address] Erythrocyte distribution width (RBC) [Ratio] 17.0 % High 11.5-14.5 [facility] Comment on above: Performed By: #### R LUMA MAGDALENOBC, PT #### [place] [address] Hematocrit (Bld) [Volume fraction] 33.9 % Low 42.0-52.0 [facility] Comment on above: Performed By: #### R LUMA MAGDALENOBC, PT #### [place] [address] Hemoglobin (Bld) [Mass/Vol] 11.7 g/dL Low 14.0-18.0 [facility] Comment on above: Performed By: #### R LUMA MAGDALENOBC, PT #### [place] [address] MCH (RBC) [Entitic mass] 30.0 pg Normal 26.0-35.0 [facility] Comment on above: Performed By: #### R ENF ACBC, PT #### [place] [address] MCHC (RBC) [Mass/Vol] 34.5 g/dL Normal 27.0-37.0 [facility] Comment on above: Performed By: #### R ENEleni ACBC, PT #### [place] [address] MCV (RBC) [Entitic vol] 87.2 fL Normal 80.0-100.0 [facility] Comment on above: Performed By: #### R ENF ACBC, PT #### Testing performed at [address] [address] Platelet mean volume (Bld) [Entitic vol] 9.2 fL Normal 7.4-11.0 [facility] Comment on above: Performed By: #### R HUGH MAGDALENO, PT #### Testing performed at [address] [address] Platelets (Bld) [#/Vol] 154 10*3/uL Normal 130.0-400. 0 [facility] Comment on above: Performed By: #### R LUMA MAGDALENOBC, PT #### [place] [address] RBC (Bld) [#/Vol] 3.89 10*6/uL Low 4.0-6.1 [facility] Comment on above: Performed By: #### HUGH FARIA, PT #### Testing performed at [place] [id number] WBC (Bld) [#/Vol] 9.5 10*3/uL Normal 3.6-11.0 [facility] Comment on above: Performed By: #### R HUGH MAGDALENO, PT #### Testing performed at [place] [id number] CBC, EDIF, PLATELETon 2021 ABSOLUTE BASOPHIL COUNT 0.0 10*3/uL 0.0 - 0.2 10*3/uL [facility] Comment on above: Testing performed at [place] [id number] Basophils/100 WBC (Bld) 0.1 % 0.0 - 2.0 % [facility] Differential cell count method Nom (Bld) AUTO DIFF % [facility] Eosinophils (Bld) [#/Vol] 0.00 10*3/uL 0.0 - 0.7 10*3/uL [facility] Eosinophils/100 WBC (Bld) 0.0 % 0.0 - 11.0 % [facility] Erythrocyte distribution width (RBC) [Ratio] 17.0 % High 11.5 - 14.5 % [facility] Hematocrit (Bld) [Volume fraction] 33.9 % Low 42.0 - 52.0 % [facility] Hemoglobin (Bld) [Mass/Vol] 11.7 g/dL Low [facility] Interpretation and review of laboratory results Abnormal [facility] Lymphocytes (Bld) [#/Vol] 0.60 10*3/uL Low 1.2 - 3.4 10*3/uL [facility] Lymphocytes/100 WBC (Bld) 6.4 % Low 20.0 - 55.0 % [facility] MCH (RBC) [Entitic mass] 30.0 pg 26.0 - 35.0 PG [facility] MCHC (RBC) [Mass/Vol] 34.5 g/dL [facility] MCV (RBC) [Entitic vol] 87.2 fL [facility] Monocytes (Bld) [#/Vol] 0.4 10*3/uL 0.0 - 0.7 10*3/uL [facility] Monocytes/100 WBC (Bld) 4.1 % 0.0 - 10.0 % [facility] Neutrophils (Bld) [#/Vol] 8.5 10*3/uL High 1.4 - 6.5 10*3/uL [facility] Neutrophils/100 WBC (Bld) 89.4 % High 37.0 - 75.0 % [facility] Platelet mean volume (Bld) [Entitic vol] 9.2 fL [facility] Platelets (Bld) [#/Vol] 154 10*3/uL 130.0 - 400.0 10*3/uL [facility] RBC (Bld) [#/Vol] 3.89 10*6/uL Low 4.0 - 6.1 10*6/uL [facility] WBC (Bld) [#/Vol] 9.5 10*3/uL 3.6 - 11.0 10*3/uL [facility] PROTIMEon 03-16-2022 INR Coag (PPP) [Relative time] 1.37 {INR} High 0.85-1.10 [facility] Comment on above: Result Comment: 2.0-3.0 THERAPEUTIC RANGE 2.5-3.5 MECHANICAL VALVE RANGE Testing performed at [place] [address] Performed By: #### R ENF, ACBC, PT #### Testing performed at [facility] [address] [place] [address] PT Coag (PPP) [Time] 16.9 s High 11.8-14.4 [facility] Comment on above: Performed By: #### R ENF, ACBC, PT #### Testing performed at [facility] [address] [place] [address] PROTIME-INRon 03-16-2022 INR Coag (PPP) [Relative time] 1.37 {INR} High [facility] Comment on above: 2.0-3.0 THERAPEUTIC RANGE 2.5-3.5 MECHANICAL VALVE RANGE Testing performed at [place] [address] Interpretation and review of laboratory results Abnormal [facility] PT Coag (PPP) [Time] 16.9 s High [facility] RENAL FUNCTION PANELon 03-16 Albumin [Mass/Vol] 3.3 G/dl Low 3.5 - 5.0 G/dl [facility] Calcium [Mass/Vol] 7.9 mg/dL Low [facility] Chloride [Moles/Vol] 106 mmol/L [facility] Comment on above: Please note: Triglyc eride levels of 600mg/dL or higher may positively bias chloride results by approximately 2.1 mmol CO2 [Moles/Vol] 23 mmol/L [facility] Creatinine [Mass/Vol] 1.20 mg/dL [facility] GFR COMMENT Average GFR for 70+ years old = 75. [facility] Comment on above: Chronic Kidney disea se, GFR = <60. Kidney failure, GFR = <15. The GFR estimate is not adjusted for extreme body surface area or acute process, nor has it been validated for women or ethnic groups other than and . Testing performed at [place], [place] [address] GFR/1.73 sq M.predicted among blacks MDRD (S/P/Bld) [Vol rate/Area] 76 mL/min/{1.73_m2} ml/min/1.7 3sq.m [facility] GFR/1.73 sq M.predicted among non-blacks MDRD (S/P/Bld) [Vol rate/Area] 63 mL/min/{1.73_m2} ml/min/1.7 3sq.m [facility] Glucose post fast [Mass/Vol] 230 mg/dL High [facility] Comment on above: NORMAL <100 mg/dL PREDIABETES 101-126 mg/dL DIABETES 126 mg/dL or higher Interpretation and review of laboratory results Abnormal [facility] Phosphate [Mass/Vol] 2.9 mg/dL [facility] Potassium [Moles/Vol] 4.5 mmol/L [facility] Sodium [Moles/Vol] 136 mmol/L Low [facility] Urea nitrogen [Mass/Vol] 22 mg/dL High [facility] RENAL PANEL,FASTINGon 2021 ALBUMIN 3.3 G/dl Low 3.5-5.0 [facility] Comment on above: Performed By: #### R HUGH MAGDALENO, PT #### [place] [address] Calcium [Mass/Vol] 7.9 mg/dL Low 8.4-10.2 [facility] Comment on above: Performed By: #### R HUGH MAGDALENO, PT #### [place] [address] Chloride [Moles/Vol] 106 mmol/L Normal 98-107 [facility] Comment on above: Result Comment: Alla noland note: Triglyceride levels of 600mg/dL or higher may positively bias chloride results by approximately 2.1 mmol Performed By: #### R HUGH MAGDALENO, PT #### [place] [address] CO2 [Moles/Vol] 23 mmol/L Normal 22-30 [facility] Comment on above: Performed By: #### R HUGH MAGDALENO, PT #### [place] [address] Creatinine [Mass/Vol] 1.20 mg/dL Normal 0.7-1.2 [facility] Comment on above: Performed By: #### R RASTA ACRAMYA, PT #### Testing performed at [address] [address] EST. GFR, 76 ml/min/1.73sq.m Normal [facility] Comment on above: Performed By: #### HUGH FARIA, PT #### [place] [address] EST. GFR,Non 63 ml/min/1.73sq.m [facility] Comment on above: Performed By: #### HUGH FARIA, PT #### [place] [address] GFR Information Average GFR for 70+ years old = 75. Normal [facility] Comment on above: Result Comment: [employer] david Kidney disease, GFR = <60. Kidney failure, GFR = <15. The GFR estimate is not adjusted for extreme body surface area or acute process, nor has it been validated for women or ethnic groups other than and . Testing performed at [place] [address] Performed By: #### HUGH FARIA, PT #### [place] [address] Glucose [Mass/Vol] 230 mg/dL High 70-100 [facility] Comment on above: Result Comment: NORMAL <100 mg/dL PREDIABETES 101-126 mg/dL DIABETES 126 mg/dL or higher Performed By: #### HUGH FARIA, PT #### [place] [address] PHOSPHOROUS 2.9 MG/DL Normal 2.5-4.5 [facility] Comment on above: Performed By: #### HUGH FARIA, PT #### [place] [address] Potassium [Moles/Vol] 4.5 mmol/L Normal 3.5-5.1 [facility] Comment on above: Performed By: #### HUGH FARIA, PT #### [place] [address] Sodium [Moles/Vol] 136 mmol/L Low 137-145 [facility] Comment on above: Performed By: #### R ENF, ACBC, PT #### [place] [address] Urea nitrogen [Mass/Vol] 22 mg/dL High 7-20 [facility] Comment on above: Performed By: #### R ENF, ACBC, PT #### [place] [address] GLUCOSE (POC DEVICE)on 03-15 GLUCOSE, POINT OF CARE [address] [facility] Interpretation and review of laboratory results Abnormal [facility] Operator [id number] [facility] [facility] Comment on above: Testing performed at [address] MRSA SCREENon 03-15-2022 MRSA DNA HERIBERTO+probe Ql (Unsp spec) Not detected Normal NOT DETECTED [facility] Comment on above: Performed By: #### M RSAST #### [place] [address] STAPH AUREUS SCREEN Not detected Normal NOT DETECTED [facility] Comment on above: Result Comment: Test ing performed at [place] [address] Performed By: #### M RSAST #### [place] [address] NOVEL CORONAVIRUSon 03-15-20 22 NARRATIVE This test was perfor med using isothermal HERIBERTO and has been approved as Emergency Use Authorization (EUA) for the qualitative detection [id number] nucleic acid. Normal [facility] Comment on above: Result Comment: Test ing performed at [place] [address] Performed By: #### C OVID #### [place] [address] SARS-CoV-2 (COVID-19) RNA HERIBERTO+probe Ql (Unsp spec) Not detected Normal NOT DETECTED [facility] Comment on [...] #### C OVID #### [place] [address] NOVEL CORONAVIRUS LAB 1 - NA SOPHARYNGEALon 03-15-2022 NARRATIVE -1 This test was perfor med using isothermal HERIBERTO and has been approved as Emergency Use Authorization (EUA) for the qualitative detection [id number] nucleic acid. [facility] Comment on above: Testing performed at [place] [address] SARS-CoV-2 (COVID-19) RNA HERIBERTO+probe Ql (Unsp spec) Not detected NOT DETECTED [facility] Comment on above: Negative results [...] patient is critically ill or clinically deteriorating. [facility] POCT GLUCOSEon 03-15-2022 Glucose [Mass/Vol] 118 mg/dL High 70-100 [facility] Comment on above: Performed By: #### P OCGLU #### [place] [address] BANK SECRECY ACT OFFICER [id number] Normal [facility] Comment on above: Result Comment: Test ing performed at [place] [address] Performed By: #### P OCGLU #### [place] [address] PROTIMEon 03-15-2022 INR Coag (PPP) [Relative time] 1.36 {INR} High 0.85-1.10 [facility] Comment on above: Result Comment: 2.0-3.0 THERAPEUTIC RANGE 2.5-3.5 MECHANICAL VALVE RANGE Testing performed at [place] [address] Performed By: #### P T #### [place] [address] PT Coag (PPP) [Time] 16.8 s High 11.8-14.4 [facility] Comment on above: Performed By: #### P T #### [place] [address] PROTIME-INRon 03-15-2022 INR Coag (PPP) [Relative time] 1.36 {INR} High [facility] Comment on above: 2.0-3.0 THERAPEUTIC RANGE 2.5-3.5 MECHANICAL VALVE RANGE Testing performed at [place] [address] Interpretation and review of laboratory results Abnormal [facility] PT Coag (PPP) [Time] 16.8 s High [facility] PTTon 03-15-2022 aPTT Coag (Bld) [Time] 28.7 s Normal 22.4-34.7 [facility] Comment on above: Result Comment: CARDIAC AND PE/DVT THERAPUTIC RANGE 69-97 SEC VASCULAR/THREATENED LIMB THERAPUTIC RANGE 80-112 SEC Testing performed at [place] [address] Performed By: #### P TT #### [place] [address] aPTT Coag (Bld) [Time] 28.7 s [facility] Comment on above: CARDIAC AND PE/DVT THERAPUTIC RANGE 69-97 SEC VASCULAR/THREATENED LIMB THERAPUTIC RANGE 80-112 SEC Testing performed at [address] SCREEN: MRSA ONLY, NARES (IS OLATION SCREEN)on 03-15-2022 MRSA isol Org specific cx Ql (Nose) Not detected NOT DETECTED [facility] STAPHYOCOCCUS AUREUS BY PCR Not detected NOT DETECTED [facility] Comment on above: Testing performed at [address] TYPE AND SCREEN CROSSMATCH C ONVERTIBLEon 03-15-2022 TYPE AND SCREEN CROSSMATCH CONVERTIBLE WORKUP EXPIRES 03/18/2022,2359 ABO/RH(D) A POSITIVE ANTIBODY SCREEN NEGATIVE ARM BAND NUMBER [id number] Testing performed at [place] [address] Normal [facility] Comment on above: Performed By: #### T SCC #### [place] [address] TYPE AND SCREEN - POSSIBLE T RANSFUSIONon 03-15-2022 ABO and Rh group Nom (Bld ) Positive [facility] ARM BAND NUMBER [id number] [facility] ARM BAND NUMBER Testing performed at [address] Blood group antibody screen Ql Negative [facility] EXPIRATION DATE 03/18/2022,2359 [facility] XR KNEE RIGHT 2 VIEWSon 02-25 XR KNEE RIGHT 2 VIEWS EXAM: XR KNEE RIGH T 2 VIEWS HISTORY: COMPARISON: FINDINGS: Joint replacement is seen with overall preservation of normal alignment. No abnormal lucency is seen around the hardware. IMPRESSION: Joint replacement without hardware complication Normal [facility] XR Knee - right 2 [...] IMPRESSION IMPRESSION: Joint replacement without hardware complication [facility] Radiology Study observation (narrative) [facility] XR Knee - right 2 ViewsOrder ed By: Abel Resendiz on 03-15-2022 [facility] Work Phone: Operative Reporton 9 Operative Report MR#: [id number] S [facility] Pt. Name: Tito Goncalves Room #: CC [...] form. The patient was brought to the pathology laboratory director and a transesophageal echocardiogram was performed under [...] Flores MD Date Trans: 06/14/2019 12:23 A/asad [id number] cc: Augustine Metz D.O. [address] [place] [id number] Ryan Cardenas M.D. [address] [place] [address] [facility] Repor ton 06-21-2017 [facility] Services Clinic Report Type: OrthopedicDictated by: To be signed by: Transcribed by: Transcribed D/ Dictation D/ Report: DATE OF VISIT: 06/08/2017 Re: Tito Goncalves HISTORY OF PRESENT ILLNESS: Patient is here today for followup. He is an established patient of [facility]. He is status post revision arthroplasty for [...] concerns in the meantime. Normal [facility] Vital Signs Date Time Vital Sign Value Performing Clinician Facility 01-09-2025 09:57-0400 Body height 172.72 cm Augustine Ball DO Work Phone: [facility] 01-09-2025 09:57-0400 Body mass index (BMI) [Ratio] 37.7 kg/m2 Augustine Ball DO Work Phone: [facility] 01-09-2025 09:57-0400 Body weight 112.6 kg Augustine Ball DO Work Phone: [facility] 01-09-2025 09:57-0400 Diastolic blood pressure 85 mm[Hg] Augustine Ball DO Work Phone: [facility] 01-09-2025 09:57-0400 Heart rate 58 /min Augustine Ball DO Work Phone: [facility] 01-09-2025 09:57-0400 Respiratory rate 12 /min Augustine Ball DO Work Phone: [facility] 01-09-2025 09:57-0400 Systolic blood pressure 135 mm[Hg] Augustine Ball DO Work Phone: [facility] 01-01-2025 10:01-0400 Body height 182.9 cm Augustine Murcek DO Work Phone: [facility] 01-01-2025 10:01-0400 Body mass index (BMI) [Ratio] 33.91 kg/m2 Augustine Murcek DO Work Phone: [facility] 01-01-2025 10:01-0400 Body weight 113.4 kg Augustine Murcek DO Work Phone: [facility] 10-30-2024 09:49-0500 Body height 182.9 cm Augustine Murcek DO Work Phone: [facility] 10-30-2024 09:49-0500 Body mass index (BMI) [Ratio] 33.91 kg/m2 Augustine Murcek DO Work Phone: [facility] 10-30-2024 09:49-0500 Body weight 113.4 kg Augustine Murcek DO Work Phone: [facility] 10-22-2024 11:30-0500 Diastolic blood pressure 66 mm[Hg] Augustine Ball DO Work Phone: [facility] 10-22-2024 11:30-0500 Heart rate 52 /min Augustine Ball DO Work Phone: [facility] 10-22-2024 11:30-0500 Respiratory rate 14 /min Augustine Ball DO Work Phone: [facility] 10-22-2024 11:30-0500 SaO2% (BldA) [Mass fraction] 94 % Augustine Ball DO Work Phone: [facility] 10-22-2024 11:30-0500 Systolic blood pressure 119 mm[Hg] Augustine Ball DO Work Phone: [facility] 10-22-2024 10:55-0500 Inhaled oxygen flow rate 0 L/min Augustine Ball DO Work Phone: [facility] 10-22-2024 10:25-0500 Body temperature 97.5 [degF] Augustine Ball DO Work Phone: [facility] 10-22-2024 07:25-0500 Body height 182.88 cm Augustine Ball DO Work Phone: [facility] 10-22-2024 07:25-0500 Body weight 111.4 kg Augustine Ball DO Work Phone: [facility] 10-17-2024 13:34-0500 Body height 182.9 cm Augustine Murcek DO Work Phone: [facility] 10-17-2024 13:34-0500 Body mass index (BMI) [Ratio] 33.91 kg/m2 Augustine Murcek DO Work Phone: [facility] 10-17-2024 13:34-0500 Body weight 113.4 kg Augustine Murcek DO Work Phone: [facility] 10-16-2024 12:55-0500 Diastolic blood pressure 64 mm[Hg] Christin Bolton MD Work Phone: [facility] 10-16-2024 12:55-0500 Systolic blood pressure 140 mm[Hg] Christin Bolton MD Work Phone: [facility] 10-10-2024 08:38-0500 Body height 172.72 cm [facility] 10-10-2024 08:38-0500 Body mass index (BMI) [Ratio] 37.3 kg/m2 [facility] 10-10-2024 08:38-0500 Body weight 111.18 kg [facility] 10-10-2024 08:38-0500 Diastolic blood pressure 70 mm[Hg] [facility] 10-10-2024 08:38-0500 Heart rate 62 /min [facility] 10-10-2024 08:38-0500 Respiratory rate 12 /min [facility] 10-10-2024 08:38-0500 Systolic blood pressure 127 mm[Hg] [facility] 10-03-2024 08:09-0500 Body height 182.9 cm Kingston Anat DO Work Phone: [facility] 10-03-2024 08:09-0500 Body mass index (BMI) [Ratio] 34.23 kg/m2 Kingston Anat DO Work Phone: [facility] 10-03-2024 08:09-0500 Body weight 114.49 kg Kingston Anat DO Work Phone: [facility] 10-03-2024 08:09-0500 Diastolic blood pressure 82 mm[Hg] Kingston Anat DO Work Phone: [facility] 10-03-2024 08:09-0500 Heart rate 62 /min Kingston Anat DO Work Phone: [facility] 10-03-2024 08:09-0500 SaO2% (BldA) [Mass fraction] 95 % Kingston Anat DO Work Phone: [facility] 10-03-2024 08:09-0500 Systolic blood pressure 132 mm[Hg] Kingston Anat DO Work Phone: [facility] 08-21-2024 09:22-0500 Body height 172.72 cm [facility] 08-21-2024 09:22-0500 Body mass index (BMI) [Ratio] 37.5 kg/m2 [facility] 08-21-2024 09:22-0500 Body weight 112.15 kg [facility] 08-21-2024 09:22-0500 Diastolic blood pressure 70 mm[Hg] [facility] 08-21-2024 09:22-0500 Heart rate 62 /min [facility] 08-21-2024 09:22-0500 Respiratory rate 12 /min [facility] 08-21-2024 09:22-0500 Systolic blood pressure 123 mm[Hg] [facility] 07-09-2024 08:50-0400 Body height 172.72 cm [facility] 07-09-2024 08:50-0400 Body mass index (BMI) [Ratio] 37.1 kg/m2 [facility] 07-09-2024 08:50-0400 Body weight 110.78 kg [facility] 07-09-2024 08:50-0400 Diastolic blood pressure 79 mm[Hg] [facility] 07-09-2024 08:50-0400 Heart rate 65 /min [facility] 07-09-2024 08:50-0400 Respiratory rate 12 /min [facility] 07-09-2024 08:50-0400 Systolic blood pressure 151 mm[Hg] [facility] 06-27-2024 08:54-0400 Body height 182.9 cm Simran Venicemor RUG DESIGNER Work Phone: [facility] 06-27-2024 08:54-0400 Body mass index (BMI) [Ratio] 33.23 kg/m2 Simran Venicemor RUG DESIGNER Work Phone: [facility] 06-27-2024 08:54-0400 Body weight 111.13 kg Simran Venicemor RUG DESIGNER Work Phone: [facility] 06-27-2024 08:54-0400 Diastolic blood pressure 70 mm[Hg] Simran Gillmor RUG DESIGNER Work Phone: [facility] 06-27-2024 08:54-0400 Heart rate 56 /min Simran Venicemor RUG DESIGNER Work Phone: [facility] 06-27-2024 08:54-0400 SaO2% (BldA) [Mass fraction] 92 % Simran Gillmor RUG DESIGNER Work Phone: [facility] 06-27-2024 08:54-0400 Systolic blood pressure 136 mm[Hg] Simran Gillmor RUG DESIGNER Work Phone: [facility] 06-04-2024 11:14-0400 Body height 172.72 cm [facility] 06-04-2024 11:14-0400 Body mass index (BMI) [Ratio] 37.1 kg/m2 [facility] 06-04-2024 11:140400 Body weight 110.78 kg [facility] 06-04-2024 11:14-0400 Diastolic blood pressure 70 mm[Hg] [facility] 06-04-2024 11:14-0400 Heart rate 68 /min [facility] 06-04-2024 11:14-0400 Respiratory rate 18 /min [facility] 06-04-2024 11:14-0400 SaO2% (BldA) [Mass fraction] 99 % [facility] 06-04-2024 11:140400 Systolic blood pressure 130 mm[Hg] [facility] 04-04-2024 11:19-0400 Body height 172.72 cm DO Augustine Ball Work Phone: [facility] 04-04-2024 11:190400 Body mass index (BMI) [Ratio] 36.6 kg/m2 DO Augustine Ball Work Phone: [facility] 04-04-2024 11:190400 Body weight 109.37 kg DO Augustine Ball Work Phone: [facility] 04-04-2024 11:190400 Diastolic blood pressure 77 mm[Hg] DO Augustine Ball Work Phone: [facility] 04-04-2024 11:19-0400 Heart rate 55 /min DO Augustine Ball Work Phone: [facility] 04-04-2024 11:19-0400 Respiratory rate 12 /min DO Augustine Ball Work Phone: [facility] 04-04-2024 11:19-0400 Systolic blood pressure 151 mm[Hg] DO Augustine Ball Work Phone: [facility] 02-27-2024 09:210400 Body height 172.72 cm DO Augustine Ball Work Phone: [facility] 02-27-2024 09:21-0400 Body mass index (BMI) [Ratio] 36.7 kg/m2 DO Augustine Ball Work Phone: [facility] 02-27-2024 09:21-0400 Body weight 109.48 kg DO Augustine Ball Work Phone: [facility] 02-27-2024 09:21-0400 Diastolic blood pressure 72 mm[Hg] DO Augustine Ball Work Phone: [facility] 02-27-2024 09:21-0400 Heart rate 60 /min DO Augustine Ball Work Phone: [facility] 02-27-2024 09:21-0400 Respiratory rate 12 /min DO Augustine Ball Work Phone: [facility] 02-27-2024 09:21-0400 Systolic blood pressure 152 mm[Hg] DO Augustine Ball Work Phone: [facility] 02-24-2024 17:02-0400 Diastolic blood pressure 70 mm[Hg] DO Augustine Ball Work Phone: [facility] 02-24-2024 17:02-0400 Heart rate 55 /min DO Augustine Ball Work Phone: [facility] 02-24-2024 17:02-0400 Respiratory rate 16 /min DO Augustine Ball Work Phone: [facility] 02-24-2024 17:02-0400 SaO2% (BldA) [Mass fraction] 97 % DO Augustine Ball Work Phone: [facility] 02-24-2024 17:02-0400 Systolic blood pressure 132 mm[Hg] DO Augustine Ball Work Phone: [facility] 02-24-2024 16:20-0400 Body temperature 98 [degF] DO Augustine Ball Work Phone: [facility] 02-24-2024 15:55-0400 Inhaled oxygen flow rate 8 L/min DO Augustine Ball Work Phone: [facility] 02-24-2024 15:38-0400 Body height 182.88 cm DO Augustine Ball Work Phone: [facility] 02-24-2024 15:38-0400 Body mass index (BMI) [Ratio] 32.5 kg/m2 DO Augustine Ball Work Phone: [facility] 02-24-2024 15:38-0400 Body weight 109 kg DO Augustine Ball Work Phone: [facility] 01-31-2024 15:34-0400 Body height 181.61 cm [facility] 01-31-2024 15:34-0400 Body mass index (BMI) [Ratio] 34.5 kg/m2 [facility] 01-31-2024 15:34-0400 Body weight 114.07 kg [facility] 01-31-2024 15:34-0400 Diastolic blood pressure 79 mm[Hg] [facility] 01-31-2024 15:34-0400 Heart rate 53 /min [facility] 01-31-2024 15:34-0400 Respiratory rate 12 /min [facility] 01-31-2024 15:34-0400 Systolic blood pressure 130 mm[Hg] [facility] 10-31-2023 10:30-0500 Body height Augustine Ball Other [facility] [employer] Other 10-31-2023 10:30-0500 Body mass index (BMI) [Ratio] 33.47 kg/m2 Augustine Ball Other [facility] Other 10-31-2023 10:30-0500 Body weight 110.41 kg Augustine Ball Other [facility] Other 10-31-2023 10:30-0500 Diastolic blood pressure 68 mm[Hg] Augustine Ball Other [facility] Other 10-31-2023 10:30-0500 Respiratory rate 12 /min Augustine Ball Other [facility] Other 10-31-2023 10:30-0500 Systolic blood pressure 122 mm[Hg] Augustine Ball Other [facility] Other 03-16-2023 11:19-0400 Body height 182.9 cm Azul Rachel SCHOOL PLANT CONSULTANT-ASSET MANAGEMENT ANALYST Work Phone: [employer] 03-16-2023 11:19-0400 Body mass index (BMI) [Ratio] 33.23 kg/m2 Azul Rachel SCHO[employer] PLANT CONSULTANT-ASSET MANAGEMENT ANALYST Work Phone: [facility] 03-16-2023 11:19-0400 Body temperature 97.2 [degF] Azul Rachel SCHOOL PLANT CONSULTANT-ASSET MANAGEMENT ANALYST Work Phone: [facility] 03-16-2023 11:19-0400 Body weight 111.13 kg Azul Rachel SCHOOL PLANT CONSULTANT-ASSET MANAGEMENT ANALYST Work Phone: [facility] 01-05-2023 12:00-0400 Body height Augustine Ball Other [employer] Other 01-05-2023 12:00-0400 Body mass index (BMI) [Ratio] 33.36 kg/m2 Augustine Ball Other [employer] Other 01-05-2023 12:00-0400 Body weight 110.04 kg Augustine Ball Other [employer] Other 01-05-2023 12:00-0400 Diastolic blood pressure 70 mm[Hg] Augustine Ball Other [employer] Other 01-05-2023 12:00-0400 Respiratory rate 12 /min Augustine Ball Other [employer] Other 01-05-2023 12:00-0400 Systolic blood pressure 118 mm[Hg] Augustine Ball Other [employer] Other 10-04-2022 12:00-0500 Body height Augustine Ball Other [employer] Other 01-09-2023 12:00-0500 Body mass index (BMI) [Ratio] 33.44 kg/m2 Augustine Ball Other [employer] Other 10-04-2022 12:00-0500 Body weight 110.32 kg Augustine Ball Other [employer] Other 10-04-2022 12:00-0500 Diastolic blood pressure 78 mm[Hg] Augustine Ball Other [employer] Other 10-04-2022 12:00-0500 Respiratory rate 12 /min Augustine Ball Other [employer] Other 10-04-2022 12:00-0500 Systolic blood pressure 128 mm[Hg] Augustine Ball Other [employer] Other 10-01-2022 08:30-0500 Diastolic blood pressure 77 mm[Hg] [facility] 10-01-2022 08:30-0500 Systolic blood pressure 132 mm[Hg] [facility] 07-08-2022 11:47-0400 Body height 182.9 cm Pastor Bedoya MD Work Phone: [employer] [facility] 07-08-2022 11:47-0400 Body mass index (BMI) [Ratio] 33.23 kg/m2 Pastor Bedoya MD Work Phone: [employer] [facility] 07-08-2022 11:47-0400 Body weight 111.13 kg Pastor Bedoya MD Work Phone: [employer] [facility] 05-03-2022 08:48-0400 Blood Pressure Location [facility] 05-03-2022 08:48-0400 Diastolic blood pressure 67 mm[Hg] [facility] 05-03-2022 08:48-0400 Heart rate 70 /min [facility] 05-03-2022 08:48-0400 Respiratory rate 16 /min [facility] 05-03-2022 08:48-0400 Systolic blood pressure 120 mm[Hg] [facility] 04-08-2022 09:49-0400 Body height 182.9 cm Azul Rachel SCHOOL PLANT CONSULTANT-ASSET MANAGEMENT ANALYST Work Phone: [facility] 04-08-2022 09:49-0400 Body mass index (BMI) [Ratio] 33.23 kg/m2 Azul Rachel SCHO[employer] PLANT CONSULTANT-ASSET MANAGEMENT ANALYST Work Phone: [facility] 04-08-2022 09:49-0400 Body temperature 96.91 [degF] Azul Rachel SCHO[employer] PLANT CONSULTANT-ASSET MANAGEMENT ANALYST Work Phone: [employer] [facility] 04-08-2022 09:49-0400 Body weight 111.13 kg Azul Rachel SCHO[employer] PLANT CONSULTANT-ASSET MANAGEMENT ANALYST Work Phone: [employer] [facility] 03-16-2022 11:00-0400 Body temperature 97.7 [degF] Pastor Bedoya MD Work Phone: [facility] 03-16-2022 11:00-0400 Diastolic blood pressure 70 mm[Hg] Pastor Bedoya MD Work Phone: [employer] [facility] 03-16-2022 11:00-0400 Heart rate 77 /min Pastor Bedoya MD Work Phone: [employer] [facility] 03-16-2022 11:00-0400 Respiratory rate 14 /min Pastor Bedoya MD Work Phone: [facility] 03-16-2022 11:00-0400 SaO2% (BldA) [Mass fraction] 96 % Pastor Bedoya MD Work Phone: [facility] 03-16-2022 11:00-0400 Systolic blood pressure 142 mm[Hg] Pastor Bedoya MD Work Phone: [facility] 03-15-2022 09:00-0400 Body height 182.9 cm Pastor Bedoya MD Work Phone: [facility] 03-15-2022 09:00-0400 Body mass index (BMI) [Ratio] 31.73 kg/m2 Pastor Bedoya MD Work Phone: [facility] 03-15-2022 09:00-0400 Body weight 106.14 kg Pastor Bedoya MD Work Phone: [facility] 2022 12:57-0400 Body height 182.9 cm Pastor Bedoya MD Work Phone: [employer] 2022 12:57-0400 Body mass index (BMI) [Ratio] 33.23 kg/m2 Pastor Bedoya MD Work Phone: [employer] 2022 12:57-0400 Body temperature 97.2 [degF] Pastor Bedoya MD Work Phone: [facility] 2022 12:57-0400 Body weight 111.13 kg Pastor Bedoya MD Work Phone: [facility] 11-04-2021 14:30-0500 Body height Carmen Kahn Other [employer] Other 03-20-2020 11:06-0400 BMI (Body Mass Index) 33.63 kg/m2 [facility] 03-20-2020 11:06-0400 Body Temperature 97.5 [degF] [facility] [email or web address] 03-20-2020 11:06-0400 Body weight 112.49 kg [facility] 03-20-2020 11:[id number] Height 182.9 cm [facility] 1945 00:00-0500 >na< Damari Rojas Dept. of Dermato logy Encounters Encounter Date Encounter Type Care Provider Facility Start: 01-11-2025 End: 01-11-2025 ambulatory [facility] Start: 01-09-2025 End: 01-09-2025 ambulatory Augustine Metz DO Work Phone: [facility] Work Phone: Start: 01-09-2025 End: 01-09-2025 Patient encounter procedure Augustine Metz DO Work Phone: [facility] Work Phone: Start: 01-03-2025 End: 01-03-2025 Bamboo flowsheet Osman Shah SCHO[employer] PLANT CONSULTANT-ASSET MANAGEMENT ANALYST Work Phone: [facility] Start: 01-03-2025 End: 01-03-2025 [employer]amboo [employer] Osman Shah SCHO[employer] PLANT CONSULTANT-ASSET MANAGEMENT ANALYST Work Phone: [facility] Start: 01-03-2025 End: 01-03-2025 Office outpatient visit 15 minutes Osman Shah SCHO[employer] PLANT CONSULTANT-ASSET MANAGEMENT ANALYST Work Phone: [facility] Comment on above: Melanocytic nevus of [...] up visit related to original px Augustine Freitas DO Work Phone: [facility] Comment on above: Skin cancer of nose (Primary Dx) Start: 01-01-2025 End: 01-01-2025 ambulatory AUGUSTINE FREITAS Not Available Start: 12-28-2024 End: 12-28-2024 Bamboo flowsheet Jose R Samria Sherrell DO Work Phone: [facility] Start: 12-28-2024 End: 12-28-2024 Bamboo flowsheet Jose R Samira Sherrell DO Work Phone: [facility] Start: 12-28-2024 End: 12-28-2024 Refill Jose R Samira Sherrell DO Work Phone: [facility] Comment on above: Age-related nuclear cataract of both eyes (Primary Dx) Start: 10-30-2024 End: 10-30-2024 Bamboo flowsheet Augustine Freitas DO Work Phone: [facility] Start: 10-30-2024 End: 10-30-2024 Bamboo flowsheet Augustine Freitas DO Work Phone: [facility] Start: 10-30-2024 End: 10-30-2024 Postop follow up visit related to original px Augustine Freitas DO Work Phone: [facility] [...] surgery center Augustine Metz DO Work Phone: [facility] [place] Start: 10-22-2024 End: 10-22-2024 ambulatory Augustine Metz DO Work Phone: [facility] Work Phone: Start: 10-17-2024 End: 10-17-2024 Patient encounter procedure Augustine Metz DO Work Phone: [facility] Work Phone: Start: 10-17-2024 End: 10-17-2024 ambulatory Augustine Metz DO Work Phone: [facility] Work Phone: Start: 10-17-2024 Encounter for preprocedural laboratory examination Augustine Freitas [facility] Start: 10-17-2024 End: 10-17-2024 Bamboo flowsheet Augustine Freitas DO Work Phone: [facility] Start: 10-17-2024 End: 10-17-2024 Bamboo flowsheet Augustine Freitas DO Work Phone: [facility] Start: 10-17-2024 End: 10-17-2024 External Result Encounter Augustine Freitas DO Work Phone: [facility] Unsolicited Start: 10-17-2024 End: 10-17-2024 Office outpatient visit 25 minutes Augustine Laure Zena DO Work Phone: [facility] Comment on above: Mohs defect of nose (Primary Dx) Start: 10-17-2024 End: 10-17-2024 ambulatory AUGUSTINE Kelsey MURCEK Not Available Start: 10-16-2024 End: 10-16-2024 Patient encounter procedure Christin Bolton MD Work Phone: [facility] Comment on above: Basal cell carcinoma (BCC) of dorsum of nose Start: 10-16-2024 End: 10-16-2024 ambulatory CHRISTIN BOLTON Not Available Start: 10-10-2024 End: 10-10-2024 ambulatory [facility] Work Phone: Start: 10-10-2024 End: 10-10-2024 Patient encounter procedure [facility] Physician [facility] Work Phone: Start: 10-04-2024 End: 10-04-2024 Patient encounter procedure Osman Shah SCHOOL PLANT CONSULTANT-ASSET MANAGEMENT ANALYST Work Phone: [facility] Comment on above: Neoplasm of unspecif ied behavior of bone, soft tissue, and skin (Primary Dx) Start: 10-04-2024 End: 10-04-2024 Bamboo flowsheet Osamn Kemper SCHOOL PLANT CONSULTANT-ASSET MANAGEMENT ANALYST Work Phone: [facility] Start: 10-04-2024 End: 10-04-2024 Bamboo flowsheet Osman Kemper SCHOOL PLANT CONSULTANT-ASSET MANAGEMENT ANALYST Work Phone: [facility] Start: 10-04-2024 End: 10-04-2024 ambulatory OSMAN SHAH Not Available Start: 10-03-2024 End: 10-03-2024 Bamboo flowsheet Kingston Coppola DO Work Phone: SHAHIDA ROMANO Start: 10-03-2024 End: 10-03-2024 Bamboo flowsheet Kingston Coppola DO Work Phone: SHAHIDA ROMANO Start: 10-03-2024 End: 10-03-2024 Office outpatient visit 25 minutes Kingston Coppola DO Work Phone: SHAHIDA ROMANO Comment on above: CUBA (obstructive sle ep apnea) (Primary Dx); PLMD (periodic limb movement disorder); Daytime hypersomnolence; Snoring; Primary insomnia Start: 10-03-2024 End: 10-03-2024 ambulatory KINGSTON COPPOLA Not Available Start: 09-07-2024 End: 09-07-2024 Bamboo flowsheet JoseR Ddod DO Work Phone: [facility] Start: 09-07-2024 End: 09-07-2024 Bamboo flowsheet Jose R Samira Dodd DO Work Phone: [facility] Start: 09-07-2024 End: 09-07-2024 ambulatory JOSE R Samira DODD Not Available Start: 08-21-2024 End: 08-21-2024 Patient encounter procedure [facility] Phys[facility] Work Phone: Start: 08-14-2024 Non-patient / Non-visit [facility] Physician [facility] Work Phone: Start: 08-14-2024 Non-patient / Non-visit [facility] Work Phone: Start: 07-11-2024 End: 07-11-2024 ambulatory [facility] Start: 07-09-2024 Patient encounter procedure [facility] Start: 07-09-2024 End: 07-09-2024 ambulatory [facility] Work Phone: Start: 07-09-2024 End: 07-09-2024 Patient encounter procedure [facility] Phys[facility] Work Phone: Start: 06-27-2024 End: 06-27-2024 Bamboo flowsheet Simran Muniz RUG DESIGNER Work Phone: [facility] [address] [facility] Start: 06-27-2024 End: 06-27-2024 Bamboo flowsheet Simran Millardmor RUG DESIGNER Work Phone: [facility] [address] Start: 06-27-2024 Non-patient / Non-visit [facility] Work Phone: Start: 06-27-2024 End: 06-27-2024 Office outpatient visit 25 minutes Simran Muniz RUG DESIGNER Work Phone: [facility] [address] [facility] Comment on above: PLMD (periodic limb movement disorder) (Primary Dx); CUBA (obstructive sleep apnea); Daytime hypersomnolence; Primary insomnia; Snoring Start: 06-27-2024 End: 06-27-2024 ambulatory SIMRAN MUNIZ Not Available Start: 06-19-2024 End: 06-19-2024 Bamboo flowsheet Osman Kemprob SCHOOL PLANT CONSULTANT-ASSET MANAGEMENT ANALYST Work Phone: [facility] Start: 06-19-2024 End: 06-19-2024 Bamboo flowsheet Osman Jose Felter SCHOOL PLANT CONSULTANT-ASSET MANAGEMENT ANALYST Work Phone: [facility] Start: 06-19-2024 End: 06-19-2024 Office outpatient visit 15 minutes Osman Kemprob SCHOOL PLANT CONSULTANT-ASSET MANAGEMENT ANALYST Work Phone: [facility] Comment on above: Seborrheic keratosis ; Melanocytic nevus of trunk; Lentigines; Capillary angioma; Telangiectasia of face; Actinic keratosis; Seborrheic keratosis, inflamed; History of malignant melanoma of skin Start: 06-19-2024 End: 06-19-2024 ambulatory OSMAN Damon KEMPROB Not Available Start: 06-08-2024 End: 06-08-2024 Bamboo flowsheet Jose R Dodd DO Work Phone: [facility] Start: 06-08-2024 End: 06-08-2024 Bamboo flowsheet Jose R Dodd DO Work Phone: [facility] Start: 06-08-2024 End: 06-08-2024 ambulatory JOSE R DODD Not Available Start: 06-04-2024 End: 06-04-2024 ambulatory [facility] Work Phone: Start: 06-04-2024 End: 06-04-2024 Patient encounter procedure [facility] Work Phone: Start: 05-16-2024 End: 05-16-2024 ambulatory DO Augustine Metz Work Phone: [facility] Work Phone: Start: 05-16-2024 End: 05-16-2024 Patient encounter procedure DO Augustine Metz Work Phone: [facility] Work Phone: Start: 04-18-2024 Non-patient / Non-visit DO Alo lew Ball Work Phone: [facility] Work Phone: Start: 04-12-2024 End: 04-12-2024 ambulatory [facility] Start: 04-04-2024 End: 04-04-2024 ambulatory AUGUSTINE FREITAS Not Available Start: 04-04-2024 End: 04-04-2024 ambulatory DO Augustine Metz Work Phone: [facility] Work Phone: Start: 04-04-2024 End: 04-04-2024 Patient encounter procedure DO Augustine Metz Work Phone: [facility] Work Phone: Start: 04-02-2024 Non-patient / Non-visit [facility] Work Phone: Start: 04-02-2024 Non-patient / Non-visit DO Alo lew Ball Work Phone: [facility] Work Phone: Start: 04-01-2024 Non-patient / Non-visit DO Alo lew Ball Work Phone: [facility] Work Phone: Start: 03-22-2024 End: 03-22-2024 ambulatory [facility] Start: 03-16-2024 End: 03-16-2024 ambulatory [place] [facility] Start: 03-09-2024 End: 03-09-2024 ambulatory JOSE R DODD Not Available Start: 03-06-2024 End: 03-06-2024 ambulatory AUGUSTINE FREITAS Not Available Start: 02-27-2024 End: 02-27-2024 ambulatory AUGUSTINE FREITAS Not Available Start: 02-27-2024 End: 02-27-2024 ambulatory DO Augustine Ball Work Phone: [facility] Work Phone: Start: 02-27-2024 End: 02-27-2024 Patient encounter procedure DO Augustine Ball Work Phone: [facility] Work Phone: Start: 02-24-2024 End: 02-24-2024 Admission to same day surgery center DO Augustine Ball Work Phone: [facility] [place] Start: 02-24-2024 End: 02-24-2024 ambulatory DO Augustine Ball Work Phone: [facility] Work Phone: Start: 02-16-2024 End: 02-16-2024 Patient encounter procedure DO Augustine Ball Work Phone: [facility] Work Phone: Start: 02-16-2024 End: 02-16-2024 ambulatory DO Augustine Ball Work Phone: [facility] Work Phone: Start: 02-16-2024 Encounter for preprocedural cardiovascular examination Augustine Freiats [facility] Start: 02-15-2024 End: 02-15-2024 ambulatory AUGUSTINE FREITAS Not Available Start: 02-15-2024 End: 02-15-2024 ambulatory CHRISTIN BOLTON Not Available Start: 02-09-2024 End: 02-09-2024 ambulatory [place] PAUL [facility] Start: 01-31-2024 End: 01-31-2024 ambulatory [facility] Work Phone: Start: 01-31-2024 End: 01-31-2024 Patient encounter procedure [facility] Physician [facility] Work Phone: Start: 01-31-2024 Non-patient / Non-visit [facility] Physician [facility] Work Phone: Start: 01-29-2024 Evaluation and management of inpatient BRIGITTE NORI CHANWYKASI [facility] Start: 01-27-2024 Evaluation and management of inpatient LIONEL [facility] Start: 01-26-2024 Evaluation and management of inpatient LIONEL [facility] Start: 01-26-2024 Evaluation and management of inpatient LIONEL [facility] Start: 01-25-2024 Evaluation and management of inpatient LIONEL [facility] Start: 01-25-2024 Evaluation and management of inpatient [facility] Start: 01-25-2024 Evaluation and management of inpatient [facility] Start: 01-25-2024 Evaluation and management of inpatient [facility] Start: 01-25-2024 Evaluation and management of inpatient [facility] Start: 01-24-2024 End: 01-29-2024 Evaluation and management of inpatient [facility] Start: 01-18-2024 Non-patient / Non-visit [facility] Work Phone: Start: 01-10-2024 End: 01-10-2024 ambulatory OSMAN SHAH Not Available Start: 12-16-2023 Non-patient / Non-visit [facility] Work Phone: Start: 11-01-2023 End: 11-01-2023 ambulatory Augustine Metz Other [place] [employer] Other Start: 11-01-2023 Telephone encounter Augustine Metz [facility] Start: 10-31-2023 End: 10-31-2023 ambulatory Augustine Metz Other [employer] Other Start: 10-31-2023 Office outpatient vi sit 25 minutes Augustine Metz [facility] Start: 10-28-2023 Bamboo flowsheet Jose R Samira Green hler DO Work Phone: [facility] Start: 10-28-2023 Bamboo flowsheet Jose R Green hler DO Work Phone: [facility] Start: 07-11-2023 End: 07-11-2023 ambulatory Augustine Metz Other [employer] Other Start: 07-11-2023 Telephone encounter Augustine Metz FP [facility] Start: 07-10-2023 End: 07-10-2023 ambulatory Augustine Metz Other [employer] Other Start: 07-10-2023 Telephone encounter Augustine Metz FP [facility] Start: 07-05-2023 End: 07-05-2023 Emergency department patient visit Augustine Metz Facility:[facility] Start: 03-16-2023 ambulatory AZUL VIRGINIE [facility] Start: 03-16-2023 End: 03-16-2023 Office outpatient visit 15 minutes Azul Rachel SCHOOL PLANT CONSULTANT-ASSET MANAGEMENT ANALYST Work Phone: [facility] Comment on above: Hx of total knee art hroplasty, right (Primary Dx) Start: 03-16-2023 End: 03-16-2023 Subsequent hospital visit by physician Azul Rachel SCHOOL PLANT CONSULTANT-ASSET MANAGEMENT ANALYST Work Phone: [facility] Start: 02-01-2023 ambulatory AUGUSTINE METZ Facilit y:[facility] Start: 01-24-2023 End: 02-23-2023 ambulatory SHAIKH Tiburcio PRICE Facility: Start: 01-22-2023 End: 01-22-2023 ambulatory Augustine Metz Other [employer] Other Start: 01-22-2023 Telephone encounter Augustine Metz FP [facility] Start: 2023 End: 01-22-[address] AUGUSTINE METZ Facility:[facility] Start: 01-05-2023 End: 01-05-2023 ambulatory Augustine Metz Other [employer] Other Start: 01-05-2023 Office outpatient vi sit 25 minutes Augustine Metz [facility] Start: 12-27-2022 End: 2023 ambulatory SHAIKH Tiburcio PRICE Facility:[facility] Start: 11-24-2022 End: 12-24-2022 ambulatory SHAIKH Tiburcio PRICE Facility:[facility] Start: 11-10-2022 End: 11-10-2022 ambulatory Augustine Metz Other [employer] Other Start: 11-10-2022 Telephone encounter Augustine Metz FP [facility] Start: 11-09-2022 Telephone encounter Augustine PHILIPPE [facility] Start: 11-09-2022 End: 11-10-2022 ambulatory AUGUSTINE METZ [facility] [employer] Other Start: 11-08-2022 ambulatory AUGUSTINE METZ Facilit [...] 10-04-2022 End: 10-04-2022 ambulatory Augustine Metz Other [employer] Other Start: 10-04-2022 Office outpatient vi sit 25 minutes Augustine [facility] Start: 10-01-2022 ambulatory Ms. Osman Shah Facility:[id number] Start: 09-27-2022 End: 10-27-2022 ambulatory SHAIKH Tiburcio PRICE Facility:[facility]1 Start: 09-14-2022 Damari Rojas Dept. of D ermatology Start: 09-09-2022 Pre-procedure evaluation check Augustine Metz Other [facility] [employer] Other Start: 09-07-[address] Macario Bui Facility:[id number] Start: 08-26-2022 End: 09-26-2022 ambulatory SHAIKH Tiburcio PRICE Facility:[facility]1 Start: 07-27-2022 End: 08-25-2022 ambulatory SHAIKH Tiburcio PRICE Facility:[facility]1 Start: 07-13-2022 End: 07-14-[address] AUGUSTINE METZ Facility:[facility] Start: 07-08-2022 ambulatory PASTOR BEDOYA [facility] Start: 07-08-2022 End: 07-08-2022 Office outpatient visit 15 minutes Pastor Bedoya MD Work Phone: [facility] Comment on above: Hx of total knee art hroplasty, right (Primary Dx) Start: 07-08-2022 End: 07-08-2022 Subsequent hospital visit by physician Pastor Bedoya MD Work Phone: [facility] Start: 06-28-2022 End: 06-29-[address] AUGUSTINE METZ Facility:[facility]1 Start: 06-28-2022 End: 07-26-2022 ambulatory SHAIKH Tiburcio PRICE Facility:[facility]1 Start: 06-15-2022 End: 06-16-[address] AUGUSTINE METZ Facility:[facility]1 Start: 05-27-2022 End: 06-26-2022 ambulatory SHAIKH Tiburcio PRICE Facility:[facility]1 Start: 05-03-2022 End: 05-03-2022 Patient encounter procedure Mc ALMONTE [facility] Start: 04-26-2022 End: 04-27-[address] AUGUSTINE METZ Facility:[facility]1 Start: 04-26-2022 End: 05-26-2022 ambulatory SHAIKH Tiburcio PRICE Facility:[facility]1 Start: 04-19-2022 End: 05-08-[address] AUGUSTINE METZ Facility:[facility] Start: 04-08-2022 ambulatory AZUL RACHEL [facility] Start: 04-08-2022 End: 04-08-2022 Postop follow up visit related to original px Azul LAN Work Phone: [facility] Comment on above: Hx of total knee art hroplasty, right (Primary Dx) Start: 04-08-2022 End: 04-08-2022 Subsequent hospital visit by physician Azul LAN Work Phone: [facility] Start: 04-07-2022 End: 04-08-[address] AUGUSTINE METZ Facility:[facility]1 Start: 03-26-2022 End: 04-23-2022 ambulatory SHAIKH Tiburcio PRICE Facility:[facility]1 Start: 03-15-2022 End: 03-16-2022 Patient encounter status Pastor Bedoya MD Work Phone: [facility] Start: 03-15-2022 End: 03-16-2022 Subsequent hospital visit by physician Pastor Bedoya MD Work Phone: [facility] Comment on above: S/P total knee arthr oplasty, right Start: 2022 End: 2022 Office outpatient new 60 minutes Pastor Bedoya MD Work Phone: [facility] Comment on above: Right knee pain, uns pecified chronicity (Primary Dx); Pain in prosthetic joint, sequela Start: 2022 End: 2022 Subsequent hospital visit by physician Pastor Bedoya MD Work Phone: [facility] Start: 11-04-2021 End: 11-04-2021 ambulatory Carmen Kahn Other [employer] Other Start: 11-04-2021 Office outpatient vi sit 25 minutes Carmen Kahn [facility] Start: 11-03-2021 End: 11-03-2021 ambulatory Carmen Kahn Other [employer] Other Start: 11-03-2021 Telephone encounter Carmen Kahn [facility] Start: 03-20-2020 End: 03-20-2020 Office outpatient visit 15 minutes Pastor Elke [facility] Comment on above: 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) Start: 03-20-2020 End: 03-20-2020 Subsequent hospital visit by physician Azul Rachel APRN-ASSET MANAGEMENT ANALYST Work Phone: [facility] Start: 06-13-2019 End: 06-14-2019 Patient encounter procedure GENE JONES Facility:[facility] Procedures Date Procedure Procedure Detail Performing Clinician Start: 01-03-2025 CRYOTHERAPY SKIN LESION Osman Jose Alyssa SCHOOL PLANT CONSULTANT-ASSET MANAGEMENT ANALYST Work Phone: Start: 12-28-2024 End: 12-28-2024 Oph bmtry prtl coher intrfrmtry io lens pwr chhaya Jose R Dodd DO Work Phone: Start: 12-28-2024 Computerized ophthalmic imaging retina Jose R Dodd DO Work Phone: Start: 12-28-2024 End: 12-28-2024 Ophth medical xm&eval comprhnsv estab pt 1/> Age-related [...] Phone: Start: 10-22-2024 GLUCOSE POCT GLUCOMETERS Augustine fairchild DO Work Phone: Start: 10-17-2024 Basic metabolic panel calcium total Augustine Freitas DO Work Phone: Start: 10-17-2024 Complete blood count with white cell differential, automated Augustine Freitas DO Work Phone: Start: 10-16-2024 MOHS SURGERY Christin Bolton MD Work Phone: Start: 10-04-2024 SKIN / NAIL BIOPSY Osman Shah SCHOOL PLANT CONSULTANT-ASSET MANAGEMENT ANALYST Work Phone: Start: 09-07-2024 Computerized ophthalmic imaging retina Jose R Dodd DO Work Phone: Start: 09-07-2024 End: 09-07-2024 [facility] estab pt 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 Jose R Dodd DO Work Phone: Comment on above: Advanced atrophic nonexudative age-relat ed macular degeneration of both eyes without subfoveal involvement (Primary Dx); Dry eyes; Age-related nuclear cataract of both eyes; Type 2 diabetes mellitus without complication, without long-term current use of insulin ([facility]) Start: 06-19-2024 End: 06-19-2024 CRYOTHERAPY SKIN LESION Osman Shah SCHOOL PLANT CONSULTANT-ASSET MANAGEMENT ANALYST Work Phone: Start: 06-08-2024 Computerized ophthalmic imaging retina Jose R Dodd DO Work Phone: Start: 06-08-2024 End: 06-08-2024 [facility]&eval comprhnsv estab pt 1/> Advanced atrophic nonexudative [...] Phone: Start: 03-15-2022 Prothrombin time Azul Rachel SCHOOL PLANT CONSULTANT-ASSET MANAGEMENT ANALYST Work Phone: Start: 03-15-2022 Cultyp nuc acid amp prb cult/isolate ea orgnism Azul Rachel SCHOOL PLANT CONSULTANT-ASSET MANAGEMENT ANALYST Work Phone: Start: 03-15-2022 Sars-cov-2 detection by dna/rna Azul ramirez SCHOOL PLANT CONSULTANT-ASSET MANAGEMENT ANALYST Work Phone: Start: 03-15-2022 Antibody screen rbc each serum technique Pastor Bedoya MD Work Phone: Start: 03-15-2022 End: 03-15-2022 Thromboplastin time partial plasma/whole blood Azul Rachel SCHOOL PLANT CONSULTANT-ASSET MANAGEMENT ANALYST Work Phone: Start: 01-10-2020 Renal lithotripsy Mc ALMONTE Start: 10-23-2019 Cystoscopic removal of ureteric stent Mc ALMONTE Start: 09-26-2019 Endoscopic retrograde cholangiopancreatography Mc ALMONTE Cholecystectomy [facility] Colonoscopy Mc ALMONTE Depression screening Benjami n Isaías Other Total knee replacement Ro ALMONTE Plan of Treatment Date Care Activity Detail Author Start: 07-04-2025 End: 07-04-2025 Patient encounter procedure 07/04/2025 9:10 AM EDT Office Visit [facility] [address] [place] [id number] Osman Shah SCHOOL PLANT CONSULTANT-ASSET MANAGEMENT ANALYST [address] [place] [address] [facility] Start: 02-26-2025 End: 02-26-2025 Patient encounter procedure 02/26/2025 10:15 AM EDT Office Visit [facility] [address] [place] [phone] Jose R Dodd, [address] [place] [address] [facility] Start: 01-03-2025 End: 01-03-2025 Patient encounter procedure [facility] Comment on above: Arrived Start: 01-01-2025 End: 01-01-2025 Patient encounter procedure [facility] [place] Comment on above: Arrived Start: 12-28-2024 End: 12-28-2024 Patient encounter procedure [facility] Comment on above: Arrived Start: 10-30-2024 End: 10-30-2024 Patient encounter procedure [facility] [place] Comment on above: Arrived Start: 10-22-2024 End: 10-22-2024 [facility] Start: 10-17-2024 End: 10-17-2024 Patient encounter [...] [address] [place] [address] Osman Shah, SCHOOL PLANT CONSULTANT-ASSET MANAGEMENT ANALYST [address] [place] [address] [facility] Start: 06-27-2024 End: 06-27-2024 Patient encounter procedure 06/27/2024 9:00 AM EDT Office Visit [facility] [address] [place] [phone] Simran Muniz, RUG DESIGNER [address] [place], [place] Arrived [facility] [address] Comment on above: Arrived Start: 06-19-2024 End: 06-19-2024 Patient encounter procedure 06/19/2024 9:25 AM EDT Office Visit [facility] [address] [place] [address] Osman Shah, SCHOOL PLANT CONSULTANT-ASSET MANAGEMENT ANALYST [address] [place] [address] Arrived [facility] Comment on above: Arrived Start: 06-08-2024 End: 06-08-2024 Patient encounter procedure 06/08/2024 10:30 AM EDT Office Visit [facility] [address] [place] [phone] Jose R Dodd, DO [address] [place] [address] Arrived [facility] Comment on above: Arrived Start: 05-27-2024 Influenza vaccination Influenza Vaccine (#1) [facility] Start: 02-24-2024 End: 02-24-2024 [facility] Start: 01-10-2024 End: 01-10-2024 Patient encounter procedure 01/10/2024 9:35 AM EDT Office Visit [facility] [address] [place] [phone] Osman Shah SCHOOL PLANT CONSULTANT-ASSET MANAGEMENT ANALYST [address] [place] [address] [facility] Start: 10-28-2023 End: 10-28-2023 Patient encounter procedure 10/28/2023 9:30 AM EST Procedure Visit [facility] [address] [place] [phone] Jose R Dodd, DO [address] [place] [address] Arrived [facility] Comment on above: Arrived Start: 05-27-2023 Influenza vaccination Influenza Vaccine (#1) [facility] Start: 03-16-2023 End: 03-16-2023 Patient encounter procedure 03/16/2023 Office Visit Orthopaedics Azul Rachel, SCHOOL PLANT CONSULTANT-ASSET MANAGEMENT ANALYST [address] [place] [address] [facility] Start: 10-22-2022 COVID-19 VACCINE (6 - Pfizer series) COVID-19 VACCINE (6 - Pfizer series) [facility] Start: 08-21-2022 Hemoglobin A1c measurement HBA1C TEST [facility] Start: 07-08-2022 End: 07-08-2022 Patient encounter procedure 07/08/2022 Office Visit Orthopaedics Pastor Bedoya MD [address] [place] [address] [facility] Start: 05-27-2022 Influenza vaccination [facility] Start: 04-08-2022 End: 04-08-2022 Patient encounter procedure 04/08/2022 Office Visit Orthopaedics Azul Rachel APRN-TOBI [address] [place] [address] [facility] Start: 02-18-2022 End: 02-18-2022 ambulatory 02/18/2022 Pre-Operative Nurse Assessment Internal Medicine [facility] Pre [facility] Start: 05-27-2020 Influenza vaccination INFLUENZA VACCINE (Season Ended) [facility] Start: 12-25-2014 Pneumococcal vaccination PNEUMOCOCCAL VACCINE SERIES (2 - PCV) [facility] Start: 12-25-2014 Pneumococcal Vaccine: 65+ Years (2 - PCV) Pneumococcal Vaccine: 65+ Years (2 - PCV) [facility] Start: 12-25-2014 Pneumococcal Vaccine: 65+ Years (2 of 2 - PCV) Pneumococcal Vaccine: 65+ Years (2 of 2 - PCV) [facility] Start: 2011 Abdominal aortic aneurysm screening ABDOMINAL AORTIC ANEURYSM HIGH RISK SCREEN [facility] Start: 2011 Pneumococcal vaccination [facility] Start: 01-22-1996 Colonoscopy COLORECTAL CANCER SCREENING DISCUSSION [facility] Start: 01-22-1996 Prostate specific antigen measurement PROSTATE CANCER SCREENING DISCUSSION [facility] Start: 01-22-1996 Zoster vaccine hzv live for subcutaneous use ZOSTER (SHINGLES) VACCINE (1 of 2) [facility] Start: 1991 Colonoscopy COLORECTAL CANCER SCREENING DISCUSSION [facility] Start: 1991 Screening for malignant neoplasm of colon COLORECTAL CANCER SCREENING DISCUSSION [facility] Start: 1986 Fasting lipid profile LIPID SCREENING [facility] Start: 1965 Third diphtheria, tetanus and acellular pertussis (DTaP) vaccination TDAP (ADULT) [facility] Start: 01-22-1964 Tetanus vaccination TETANUS [facility] Start: 1951 COVID-19 VACCINE (#1) COVID-19 VACCINE (#1) [facility] tem Start: 1946 COVID-19 VACCINE (#1) COVID-19 VACCINE (#1) [facility] tem Start: 1946 Diabetic foot examination DIABETIC FOOT EXAM [facility] Start: 1946 Diabetic retinal eye exam EYE EXAM [facility] Start: 1946 Glaucoma screening EYE EXAM [facility] Start: 1946 Hepatitis B vaccination HEP B VACCINE (1 of 3 - 3-dose series) [facility] Start: 1946 Hepatitis C antibody, confirmatory test HEPATITIS C VIRUS SCREENING [facility] Start: 1946 Hepatitis C screening HEPATITIS C VIRUS SCREENING [facility] Start: 1946 Lipid panel LIPIDS [facility] Start: 1946 LIPIDS LIPIDS [facility] Start: 1946 Microalbumin measurement, urine, quantitative URINE MICROALBUMIN TEST [facility] Start: 1946 Potassium [Moles/Vol] POTASSIUM [facility] Start: 1946 Tetanus vaccination TETANUS [facility] Start: 1946 Urine screening for protein URINE MICROALBUMIN TEST [facility] Dermatopathology exam Dermatopat hology exam Pathology and Cytology Timed Neoplasm of unspecified behavior of bone, soft tissue, and skin Release Upon Ordering for 1 Occurrences starting 10/04/2024 [facility] Work Phone: Comment on above: Release Upon Ordering for 1 Occurrences starting 10/04/2024 Patient Education Know your Meds [facility] Work Phone: Patient referral [facility] Work Phone: Radiography for bone length studies XR BONE LENGTH STUDY Imaging Routine Hx of total knee arthroplasty, right 07/08/2022 11:01 AM EDT [facility] Work Phone: SURGICAL PATHOLOGY REQUEST SURGICAL PATHOLOGY REQUEST Surg Path Routine Osteoarthritis of right knee, unspecified osteoarthritis type Release Upon Ordering for 1 Occurrences starting 03/15/2022 [employer] Work Phone: Comment on above: Release Upon Ordering for 1 Occurrences starting 03/15/2022 X-ray of left knee XR KNEE LEFT 3 VIEWS Imaging Routine History of revision of total replacement of left knee joint 03/20/2020 10:48 AM EDT [email or web address] XR Knee - left 3 Views XR KNEE L EFT 3 VIEWS Imaging Routine Pain in prosthetic joint, sequela 2022 1:09 PM EDT [employer] XR Knee - right 3 Views XR KNEE RIGHT 3 VIEWS Imaging Routine Hx of total knee arthroplasty, right 04/08/2022 10:04 AM EDT [employer] XR Knee - right 3 Views XR KNEE RIGHT 3 VIEWS Imaging Routine Hx of total knee arthroplasty, right 07/08/2022 11:01 AM EDT [employer] XR Knee - right 3 Views XR KNEE RIGHT 3 VIEWS Imaging Routine Hx of total knee arthroplasty, right 03/16/2023 11:03 AM EDT [employer] XR Knee - right 4 Views XR KNEE RIGHT 4+ VIEWS Imaging Routine Right knee pain, unspecified chronicity 2022 12:51 PM EDT [employer] [facility] Immunizations Immunization Date Immunization Notes Care Provider Dunia burrell 08-21-2024 COVID-19 (PFIZER) 12Y and older Augustine Ball DO Work Phone: [facility] 07-09-2024 influenza, high dose seasonal, preservative-free [facility] 12-27-2023 COVID-19 (PFIZER) 12Y and older DO Augustine Ball Work Phone: [facility] 07-08-2023 influenza virus vaccine, unspecified formulation [facility] 07-08-2023 influenza, high dose seasonal, preservative-free Augustine Ball Other [employer] Other 06-21-2023 COVID-19 (PFIZER) 12Y and older DO Augustine Ball Work Phone: [facility] 03-03-2023 zoster vaccine recombinant Augustine Metz Other [facility] 01-01-2023 zoster vaccine recombinant Augustine Metz Other [facility] 06-29-2022 influenza, high dose seasonal, preservative-free Augustine Metz Other [facility] [employer] Other 06-29-2022 influenza virus vaccine, split virus (incl. purified surface antigen) Augustine Metz Other [facility] [employer] Other 06-29-2022 Influenza, Seasonal, Quadrivalent, Adjuvanted Jose R Zahler DO Work Phone: [facility] [employer] 06-29-2022 influenza virus vaccine, unspecified formulation Jose R Zahler DO Work Phone: [facility] 06-22-2022 COVID-19 Pfizer (bivalent) Augustine Metz Other [facility] 04-17-2022 COVID-19 Comirnaty (Pfizer) Tri-Sucrose 12+ DO Augustine Metz Work Phone: [facility] 07-15-2021 influenza virus vaccine, split virus (incl. purified surface antigen) Augustine Metz Other [facility] [employer] Other 07-15-2021 influenza virus vaccine, unspecified formulation [facility] 07-15-2021 Seasonal trivalent influenza vaccine, adjuvanted, preservative free Jose R Zahler DO Work Phone: [facility] 06-22-2021 COVID-19 Vaccine Pfi zer - Documentation Purposes Only Augustine Metz Other [facility] 11-20-2020 COVID-19 Vaccine Pfi zer - Documentation Purposes Only Augustine Metz Other [facility] 10-30-2020 COVID-19 Vaccine Pfi zer - Documentation Purposes Only Augustine Metz Other [facility] 07-09-2020 influenza, high dose seasonal, preservative-free Jose R Zahler DO Work Phone: [facility] 07-01-2020 influenza virus vaccine, split virus (incl. purified surface antigen) Augustine Metz Other [facility] [employer] Other 07-01-2020 influenza virus vaccine, unspecified formulation [facility] 07-06-2019 influenza virus vaccine, split virus (incl. purified surface antigen) Augustine Metz Other [facility] [employer] Other 07-06-2019 influenza virus vaccine, unspecified formulation [facility] 07-12-2018 influenza virus vaccine, split virus (incl. purified surface antigen) Augustine Metz Other [facility] [employer] Other 07-12-2018 influenza virus vaccine, unspecified formulation [facility] 07-12-2018 Seasonal trivalent influenza vaccine, adjuvanted, preservative free Jose R Zahler DO Work Phone: [facility] 07-25-2017 influenza virus vaccine, split virus (incl. purified surface antigen) Augustine Metz Other [facility] [employer] Other 07-25-2017 influenza virus vaccine, unspecified formulation [facility] 07-25-2017 influenza, high dose seasonal, preservative-free Jose R Zahler DO Work Phone: [facility] 07-07-2016 influenza virus vaccine, split virus (incl. purified surface antigen) Augustine Metz Other [facility] [employer] Other 07-07-2016 influenza virus vaccine, unspecified formulation [facility] 07-07-2016 influenza, high dose seasonal, preservative-free Jose R Zahler DO Work Phone: [facility] 07-18-2015 pneumococcal conjuga te vaccine, 13 valent Augustine Metz Other [facility] 06-11-2015 influenza virus vaccine, split virus (incl. purified surface antigen) Augustine Metz Other [employer] Other 06-11-2015 influenza virus vaccine, unspecified formulation [facility] 05-27-2015 influenza, injectabl e, madin emilee canine kidney, preservative free Jose R Dodd DO Work Phone: [facility] 06-17-2014 tetanus and diphther ia toxoids, adsorbed, preservative free, for adult use (5 Lf of tetanus toxoid and 2 Lf of diphtheria toxoid) Augustine Metz Other [facility] 12-25-2013 pneumococcal polysaccharide vaccine, 23 valent Jose R Dodd DO Work Phone: [facility] 08-28-2013 pneumococcal polysaccharide vaccine, 23 valent Augustine Metz Other [facility] 07-26-2013 tetanus and diphther ia toxoids, adsorbed, preservative free, for adult use (5 Lf of tetanus toxoid and 2 Lf of diphtheria toxoid) Augustine Metz Other [facility] 07-18-2013 zoster vaccine, live Benjami letty Metz Other [facility] 1945 pneumococcal conjuga te vaccine, 7 valent [facility] Ro[facility] Payers Date Payer Category Payer Self-pay [id number] 2022 Private Health Insurance [employer] [id number] 2017 Unknown [employer] M MO TRADITIONAL [id number] 2017-Present [id number]. [id number] 2010 Medicare MEDICARE MEDICAR E A AND B [id number] 2010-Present [place], [place] [id number]. [id number] 2008 Medicare [id number]. 1.13.172.2. [id number] 2008 Unknown [id number]. 1.13.172.2. 7.3.355189.315 1959 Medicare [id number] 2.16.840.1.120293.19 1959 Unknown [id number] 1946 Unknown [id number] 2.16840.1.356901.3.579.2. 647 1946 Unknown [id number] 2.840.1.570408.3.579.2. 356 1946 Unknown [id number] 2.16840.1.002109.3.579.2. 356 1946 Unknown [id number] 2.16840.1.619512.3.579.2. 159 1946 Unknown [id number] 2.16.840.1.102220.3.579.2. 159 1946 Unknown [id number] 2.16840.1.466495.3.579.2. 159 1946 Unknown [id number] 2.16840.1.499039.3.579.2. 159 1946 Unknown [id number] 2.16840.1.516895.3.579.2. 159 1946 Unknown [id number] 2.16.840.1.678709.3.579.2. 593 1946 Unknown [id number] 2.16.840.1.567245.3.579.2. 593 1946 Unknown [id number] 2.16.840.1.064128.3.579.2. 593 1946 Unknown [id number] 2.16.840.1.828556.3.579.2. 593 1946 Unknown [id number] 2.16.840.1.433605.3.579.2. 593 1946 Unknown [id number] 2.16.840.1.682575.3.579.2. 593 1946 Unknown [id number] 2.840.1.862166.3.579.2. 593 1946 Unknown [id number] 2.16840.1.840836.3.579.2. 593 1946 Unknown [id number] 2.16.840.1.576439.3.579.2. 593 1946 Unknown [id number] 2.840.1.363009.3.579.2. 593 1946 Unknown [id number] 2.840.1.378907.3.579.2. 593 1946 Unknown [id number] 2.16.840.1.031846.3.579.2. 593 1946 Unknown [id number] 2.16.840.1.238065.3.579.2. 593 1946 Unknown [id number] 2.16.840.1.949184.3.579.2. 593 1946 Unknown [id number] 2.16.840.1.109480.3.579.2. 593 1946 Unknown [id number] 2.16.840.1.790170.3.579.2. 593 1946 Unknown [id number] 2.16.840.1.321665.3.579.2. 593 1946 Unknown [id number] 2.16.840.1.032084.3.579.2. 593 1946 Unknown [id number] 2.16.840.1.666228.3.579.2. 593 1946 Unknown [id number] 2.16.840.1.939935.3.579.2. 593 1946 Unknown [id number] 2.16840.1.920459.3.579.2. 983 1946 Unknown [id number] 2.16840.1.926464.3.579.2. 983 1946 Unknown [id number] 2.16840.1.806728.3.579.2. 983 1946 Unknown [id number] 2.16840.1.038201.3.579.2. 983 1946 Unknown [id number] 2.16840.1.508262.3.579.2. 983 1946 Unknown [id number] 2.16840.1.291492.3.579.2. 983 1946 Unknown [id number] 2.16840.1.143642.3.579.2. 718 1946 Unknown [id number] 2.16840.1.177185.3.579.2. 1259 1946 Unknown [id number] 2.16840.1.634910.3.579.2. 1259 1946 Unknown [id number] 2.16.840.1.473781.3.579.2. 1259 1946 Unknown [id number] 2.16840.1.371619.3.579.2. 125 1946 Unknown [id number] 2.16.840.1.211862.3.579.2. 1258 1946 Unknown [id number] 2.16.840.1.241647.3.579.2. 1258 1946 Unknown [id number] 2.16.840.1.266750.3.579.2. 1258 1946 Unknown [id number] 2.16.840.1.260855.3.579.2. 1258 1946 Unknown [id number] 2.16.840.1.881826.3.579.2. 1258 1946 Unknown [id number] 2.16.840.1.006037.3.579.2. 1258 1946 Unknown [id number] 2.16840.1.059160.3.579.2. 1258 1946 Unknown [id number] 2.16.840.1.433336.3.579.2. 1258 1946 Unknown [id number] 2.16.840.1.218188.3.579.2. 1258 1946 Unknown [id number] 2.16.840.1.968768.3.579.2. 1258 1946 Unknown [id number] 2.16840.1.850054.3.579.2. 1258 1946 Unknown [id number] 2.16.840.1.119514.3.579.2. 1258 1946 Unknown [id number] 2.16.840.1.893892.3.579.2. 1258 1946 Unknown [id number] 2.16.840.1.641797.3.579.2. 1258 1946 Unknown [id number] 2.16.840.1.114650.3.579.2. 1258 1946 Unknown [id number] 2.16.840.1.442146.3.579.2. 1259 Medicare [id number] Unknown [facility] [id number] Unknown [id number] 2.16.840.1.395906.3.579.2. 531 Unknown [id number] 2.16.840.1.650214.3.579.2. 531 Unknown [id number] 2.16.840.1.982145.3.579.2. 531 Unknown [id number] 2.16.840.1.799536.3.579.2. 531 Social History Date Type Detail Facility Start: 03-20-2020 End: 10-22-2024 Tobacco smoking status MSIS Former smoker [email or web address] End: 02-08-1983 History of tobacco use Current smoker [email or web address] Start: 03-20-2020 End: 07-08-2022 Tobacco use and exposure Former user [email or web address] End: 02-08-2003 History of tobacco use User of smokeless tobacco [email or web address] Start: 03-20-2020 End: 03-16-2023 Alcohol intake Current non-drinker of alcohol (finding) [email or web address] Start: 1945 Sex Assigned At Not on file A [facility] Start: 03-05-2022 End: 03-15-2022 Exposure to SARS-CoV-2 (event) Not sure [facility] Start: 03-16-2023 End: 01-03-2025 Sex Assigned At [facility] [employer] Other Start: 05-03-2022 End: 12-16-2023 Tobacco smoking status Never smoked tobacco (finding) [facility] End: 02-08-1983 History of tobacco use Cigarette Smoker [facility] Start: 09-14-2022 Dept. of D ermatology Start: 1945 Sex Assigned At Male [facility] Start: 03-16-2023 End: 01-03-2025 History of Social function [facility] Gender identity Identifies as ma le gender (finding) [facility] Start: 08-29-2023 End: 01-03-2025 Alcohol intake Lifetime non-drinker (finding) [facility] Start: 06-23-2023 Alcohol Comment caffeine: soda [facility] Start: 10-10-2024 End: 01-09-2025 Sex Male (finding) [facility] Medical Equipment Procedure Code Equipment Code [...] 05-03-2022 Functional Status N/A [facility] Clinical Notes 11-04-2021 to 01-11-2025 Osman Shah, SCHOOL PLANT CONSULTANT-ASSET MANAGEMENT ANALYST - 01/03/2025 9:20 AM GINATJose R Dodd, DO - 12/28/2024 9:45 AM EDKendrick Freitas, DO - 01/01/2025 10:30 AM EDKendrick Freitas, DO - 01/01/2025 10:30 AM EDT Note Date & Type Note Facility 01-11-2025 Note [facility] Subjective Tito Goncalves is a 79 y.o. year old male patient being seen for a 1 year follow up. Patient states he is feeling good. Patient C/O leg swelling which resolves by morning, Dyspnea with exertion which resolves with rest and bruising/bleeding Patient denies chest pain, palpitations, or dizziness. Patient Active Problem List Diagnosis Atrial fibrillation (CMS/HCC) Hypertensive disorder Mitral valve disorder Obstructive sleep apnea syndrome Arrhythmia Bile duct obstruction (CMS/HCC) Fall Gastroesophageal reflux disease without esophagitis Hyponatremia [...] Chest pain Daytime hypersomnolence Hypersomnia Primary insomnia PLMD (periodic limb movement disorder) Family History Problem Relation Name Age of Onset Cancer Mother Alcohol abuse Father Heart attack Other Social History Tobacco Use Smoking status: Former Types: Cigarettes Smokeless tobacco: Never Substance Use Topics Alcohol use: Not Currently Drug use: Never HPI Tito is seen in follow-up. He [...] In April 2019 he presented to the [facility] with atrial fibrillation with controlled [...] atrial appendage. There was no pericardial effusion. follow-up echocardiogram March 2024 showed normal ventricular function and no pericardial effusion. Today he is seen in follow-up. He reports that he has been doing well. He has had no chest pain, palpitations, shortness of breath and leg edema. He feels good. Today he underwent blood testing that showed significantly elevated TSH. Review of Systems Cardiovascular: Negative for chest pain, dyspnea on exertion and leg swelling. Hematologic/Lymphatic: Bruises/bleeds easily. Musculoskeletal: Positive for arthritis, back pain and myalgias. All other systems reviewed and are negative. Objective Visit Vitals BP 155/77 (BP Location: Left arm, Patient Position: Sitting) Pulse 52 Ht 1.829 m (6') Wt 111 kg (245 lb) SpO2 98% BMI 33.23 kg/m??? Smoking Status Former BSA 2.37 m??? Physical Exam Constitutional: Appearance: He is well-developed. He is obese. He is not ill-appearing. HENT: Head: Normocephalic and atraumatic. Nose: Nose normal. Eyes: General: No scleral icterus. Pupils: Pupils are equal, round, and reactive to light. Neck: Thyroid: No thyromegaly. Vascular: No JVD. Cardiovascular: Rate and Rhythm: Regular rhythm. Bradycardia present. Pulses: Radial pulses are 2+ on the right side and 2+ on the left side. Heart sounds: Normal heart sounds. No murmur heard. No friction rub. No gallop. Pulmonary: Effort: Pulmonary effort is normal. No respiratory distress. Breath sounds: Normal breath sounds. No wheezing or rales. Chest: Chest wal (more content not included)... [facility] 01-03-2025 History of Present illness Narrative Images from [...] performed by Macario Bui MD Location: Right rastafarian Established patient Patient denies loss of appetite, [...] History of malignant melanoma of skin Right Orthodox No evidence of recurrence at melanoma scar. [...] limited to risks of scarring, darker or kindergarten instructional assistant pigmentary changes, recurrence, incomplete removal and infection. [...] months skin exam documented in this encounter [facility] 12-28-2024 Note Right Eye Quality was poor. Scan locations included subfoveal. Progression has been stable. Findings include abnormal foveal contour. Left Eye Quality was good. Scan locations included subfoveal. Progression has been stable. Findings include abnormal foveal contour. Notes Macular volume loss both eyes (OU). [facility] 12-28-2024 History of Present illness Narrative Images from [...] Medications (Ophthalmic Agents) Medication Sig Dispense Refill Nuzcxihzlxy-Srrgmfst-Rdsycgegg 1-0.5-0.075 % solution Administer 1 drop into [...] Daily gabapentin (Neurontin) 300 MG capsule HYDROcodone-acetaminophen ([place]) 7.5-325 MG tablet levETIRAcetam (Keppra) 500 MG [...] pain 07/11/2024 COVID-19 vaccine administered x 2 ([employer]) Diabetes (CMS/HCC) Diverticulosis of colon 10/17/2012 Family history of malignant neoplasm of skin 02/15/2024 Family history of malignant neoplasm of skin 09/06/2023 Gastroesophageal reflux disease without esophagitis 03/15/2022 GERD (gastroesophageal reflux disease) Glaucoma 09/06/2023 Glycosuria 02/15/2024 Glycosuria 09/06/2023 HTN (hypertension) (CMS/HCC) Hypercholesteremia (CMS/HCC) Hyperlipidemia (CMS/HCC) Hypertension (CMS/HCC) Hypertensive disorder (CMS/HCC) 06/10/2014 Macular degeneration Malignant neoplasm of skin 10/17/2012 Melanoma (CMS/HCC) Melanoma in situ of face ([facility]) 02/15/2024 Mitral valve disorder 09/17/2013 MILD (ECHO 8/14) Obstructive sleep apnea syndrome 09/17/2013 Paroxysmal atrial fibrillation ([facility]) 09/17/2013 PAF; CHADS2 SCORE 2 (HTN, DM). ON COUMADIN. 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 01/28/2024 Stage 3a chronic kidney disease (HCC) ([facility]) 03/15/2022 Subdural hematoma ([facility]) 2023 Type 2 diabetes mellitus without complication, [...] Normal Normal Refraction Final Rx Sphere Cylinder [place] Dist [place] Add Right +2.25 -1.25 085 [...] different lens options were explained including the [id number]-[id number] fees for any upgrades. Intraocular lens (IOL) [...] vision or metamorphopsia. documented in this encounter [facility] 11-03-2024 History of Present illness Narrative HPI Patient presents today to [...] back as needed documented in this encounter [facility] 11-03-2024 History of Present illness Narrative HPI Patient presents today to [...] back as needed documented in this encounter [facility] 10-30-2024 History of Present illness Narrative HPI Patient presents today 1 [...] given wound instructions. He is leaving for [place] for the remainder of the winter. I will see him on a returns in December documented in this encounter [facility] 10-17-2024 History of Present illness Narrative Allergies as of 10/17/2024 - [...] pain 07/11/2024 COVID-19 vaccine administered x 2 (Pfizer) Diabetes (CMS/HCC) Diverticulosis of colon 10/17/2012 Family history of malignant neoplasm of skin 02/15/2024 Family history of malignant neoplasm of skin 09/06/2023 Gastroesophageal reflux disease without esophagitis 03/15/2022 GERD (gastroesophageal reflux disease) Glaucoma (CMS/HCC) 09/06/2023 Glycosuria 02/15/2024 Glycosuria 09/06/2023 HTN (hypertension) (CMS/HCC) Hypercholesteremia (CMS/HCC) Hyperlipidemia (CMS/HCC) Hypertension (CMS/HCC) Hypertensive disorder (CMS/HCC) 06/10/2014 Macular degeneration Malignant neoplasm of skin 10/17/2012 Melanoma (CMS/HCC) Melanoma in situ of face (CMS/HCC) 02/15/2024 Mitral valve disorder 09/17/2013 MILD (ECHO 05/09) Obstructive sleep apnea syndrome 09/17/2013 Paroxysmal atrial fibrillation (CMS/HCC) 09/17/2013 PAF; CHADS2 SCORE 2 (HTN, DM). ON COUMADIN. 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 01/28/2024 Stage 3a chronic kidney disease (HCC) ([facility]) 03/15/2022 Subdural hematoma ([facility]) 2023 Type 2 diabetes mellitus without complication, without long-term current use of insulin ([facility]) 10/17/2012 Current Outpatient Medications: acetaminophen (Tylenol) 500 [...] MG capsule, , Disp: , Rfl: HYDROcodone-acetaminophen ([place]) 7.5-325 MG tablet, , Disp: , Rfl: [...] ERCP x2 FINGER AMPUTATION Left ring finger SD ARTHROSCOPY KNEE DIAGNOSTIC W/WO SYNOVIAL BX SPX [...] Strain: Low Risk (01/24/2024) [facility] Overall Financial Resource Strain (CARDIA) Difficulty of Paying Living Expenses: Not hard at all Food Insecurity: No Food Insecurity (01/24/2024) [facility] Hunger Vital Sign Within the past 12 months, you worried that your food would run out before you got the money to buy more.: Never true Ran Out of Food in the Last Year: Not on file Transportation Needs: No Transportation Needs (01/24/2024) [facility] Transportation In the past 12 months, has lack of transportation kept you from medical appointments or from getting medications?: No Lack of Transportation (Non-Medical): Not on file Physical Activity: Not on file Stress: Not on file Social Connections: Not on file Intimate Partner Violence: Unknown (01/24/2024) [facility] Humiliation, Afraid, Rape, and Kick questionnaire Fear of Current or Ex-Partner: No Emotionally Abused: Not on file Physically Abused: Not on file Sexually Abused: Not on file Housing Stability: Low Risk (01/24/2024) [facility] Housing Stability Vital Sign Unable to Pay for Housing in the Last Year: Not on file Number of Places Lived in the Last Year: Not on file In the last 12 months, was there a time when you did not have a steady place to sleep or slept in a long-term (including now)?: No Subjective Patient ID: HPI [...] consented to proceed. documented in this encounter [facility] 10-16-2024 History of Present illness Narrative Images from [...] meds, nerve injury, and recurrence were addressed.) [place] Protocol: Procedure explained and questions answered to [...] sodium bicarbonate Procedure Details: Biopsy accession number: [id number] Biopsy lab: [facility] Date of biopsy: 10/04/2024 Frozen section biopsy [...] surgery? Yes When were antibiotics given? post-operative Mohs Post Operative Type of repair: Referred for [...] Next visit: 01/03/2025 documented in this encounter [facility] 10-03-2024 History of Present illness Narrative Chief Complaint Patient presents with [...] of Klonopin and will be leaving for [place] in October and not coming back until December. He would like to get a 90 day to cover the time he is gone. 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 Mohs 10/21/2022 COVID-19 vaccine administered x 2 ([employer]lick[employer]) Diabetes (CMS/HCC) Diverticulosis of colon 10/17/2012 Family history of malignant neoplasm of skin 02/15/2024 Family history of malignant neoplasm of skin 09/06/2023 Gastroesophageal reflux disease without esophagitis 03/15/2022 GERD (gastroesophageal reflux disease) Glaucoma (CMS/HCC) 09/06/2023 Glycosuria 02/15/2024 Glycosuria 09/06/2023 HTN (hypertension) (CMS/HCC) Hypercholesteremia (CMS/HCC) Hyperlipidemia (CMS/HCC) Hypertension (CMS/HCC) Hypertensive disorder (CMS/HCC) 06/10/2014 Macular degeneration Malignant neoplasm of skin 10/17/2012 Melanoma (CMS/HCC) Melanoma in situ of face (CMS/HCC) 02/15/2024 Mitral valve disorder 09/17/2013 MILD (ECHO 05/09) Obstructive sleep apnea syndrome 09/17/2013 Paroxysmal atrial fibrillation (CMS/HCC) 09/17/2013 PAF; CHADS2 SCORE 2 (HTN, DM). ON COUMADIN. 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 01/28/2024 Stage 3a chronic kidney disease (HCC) ([facility]) 03/15/2022 Subdural hematoma ([facility]) 2023 Type 2 diabetes mellitus without complication, without long-term current use of insulin ([facility]) 10/17/2012 Past Surgical History: Procedure Laterality Date CARDIOVERSION CHOLECYSTECTOMY 2012 COLONOSCOPY 2010 ERCP x2 FINGER AMPUTATION Left ring finger SD ARTHROSCOPY KNEE DIAGNOSTIC W/WO SYNOVIAL BX SPX [...] that also He will be going to [place] once again this October for 1 1/2 months. We will end up seeing him another time before this. We will once again give him a 90 day prescriptions so he does not run out.. . . . Plan Continue the Klonopin with a 90 day prescription to take him through [place] Use the machine every night Compliance data [...] was counseled on the risks of stroke, OR, and sudden with CUBA, along with the [...] clinic: 3 months documented in this encounter [facility] 09-07-2024 Note Right Eye Quality was good. Scan locations included subfoveal. Progression has been stable. Findings include abnormal foveal contour, subretinal scarring. Left Eye Quality was good. Scan locations included subfoveal. Progression has been stable. Findings include abnormal foveal contour. Notes Macular Volume Loss both eyes (OU) [facility] 09-07-2024 History of Present illness Narrative Images from [...] now given soon to be trip to [place] as well as side effects from last treatment in August. He was provided an Amsler grid to check daily and note any changes to this. He understands to get jacob of his retina specialist in [place] if [...] tears were recommended. documented in this encounter [facility] 08-21-2024 Evaluation note Diagnosis Onset Date Resolution Anemia acute August 21, 2024 9:08am Atrial fibrillation acute 2023 9:08am Chronic kidney disease acute No 2023 9:08am GERD (gastroesophageal reflux disease) acute August 21, 024 9:08am Hypertension acute July 9:08am Obesity acute August 21, 2024 9:08am CUBA (obstructive sleep apnea) acute August 21 024 9:08am Type 2 diabetes mellitus with hyperglycemia acute July 9:08am Atrial fibrillation acute 2024 8:18am Chronic kidney disease acute 2024 8:18am GERD (gastroesophageal reflux disease) acute October 10 8:18am Hypertension acute September 8:18am Obesity acute October 10, 2024 8:18am CUBA (obstructive sleep apnea) acute October 10 8:18am Type 2 diabetes mellitus with hyperglycemia acute October 10, 2024 8:18am [facility] Work Phone: 1(745) 237-193311-26-2024 Evaluation note* Diagnosis Onset Date Resolution Status Admit Date Anemia acute August 21, 2024 9:08am Atrial fibrillation acute 2023 9:08am Chronic kidney disease acute No 2023 9:08am GERD (gastroesophageal reflu x disease) acute August 21, 9:08am Hypertension acute July 9:08am Obesity acute August 21, 2024 9:08am CUBA (obstructive sleep apnea) acute August 21, 2024 9:08am Type 2 diabetes mellitus wit h hyperglycemia acute August 21, 024 9:08am Anemia acute October 10, 2024 8:18am Atrial fibrillation acute 2024 8:18am Chronic kidney disease acute 2024 8:18am Diabetes mellitus with diabe tic polyneuropathy acute October 10 8:18am GERD (gastroesophageal reflu x disease) acute October 10 8:18am Hypertension acute September 8:18am Obesity acute October 10, 2024 8:18am CUBA (obstructive sleep apnea) acute October 10, 2024 8:18am Type 2 diabetes mellitus wit h hyperglycemia acute October 10 8:18am [facility] Work Phone: 1(611) 701-796910-16-2024 NoteUT Cardiology - [facility] Chief Complaint: Thought he [...] In April 2019 he presented to the [facility] with atrial fibrillation with controlled [...] not ill-appearing. HENT: Hea (more content not included)...[facility]09-24-2024 History of Present illness Narrative* Osman Shah, SCHOOL PLANT CONSULTANT-ASSET MANAGEMENT ANALYST - 10/04/2024 2:40 PM EST Images from [...] Next Visit: as scheduled documented in this encounterNev[facility] [id number] History of Present illness Narrative* EDYTA Spence [...] performed by Macario Bui MD Location: Right rastafarian Established patient Lesions: Location: Nose Duration: Two [...] limited to risks of scarring, darker or kindergarten instructional assistant pigmentary changes, recurrence, incomplete removal and infection. [...] 7. Seborrheic keratosis, inflamed Dorsum of Nose Miller and brown stuck on verrucous scaly papule [...] limited to risks of scarring, darker or kindergarten instructional assistant pigmentary changes, recurrence, incomplete removal and infection. [...] History of malignant melanoma of skin Right Orthodox No evidence of recurrence at melanoma scar. [...] 6 months, skin check documented in this encounterNevada [facility] [id number] NoteRight Eye Quality was good. Scan locations included subfoveal. Progression has been stable. Findings include abnormal foveal contour. Left Eye Quality was good. Scan locations included subfoveal. Progression has been stable. Findings include abnormal foveal contour. Notes Macular Volume Loss both eyes (OU). [facility] [id number] History of Present illness Narrative* Jose R [...] now given soon to be trip to [place] as well as side effects from last treatment in August. He was provided an Amsler grid to check daily and note any changes to this. He understands to get jacob of his retina specialist in [place] if [...] artificial tears were recommended. documented in this encounterNevada Regional Medical [id number] NoteUT Cardiology [facility] Chief Complaint: Thought he had [...] In April 2019 he presented to the [facility] with atrial fibrillation with controlled [...] regular rhythm. Pulses: Radial (more content not included)...[facility] 03-22-2024 NoteUT Cardiology - [facility] Subjective Tito Goncalves is [...] In April 2019 he presented to the [facility] with atrial fibrillation with controlled [...] Judgment normal. Allergies Morro (more content not included)...[facility]06-21-2024 NotePatient: Tito Goncalves Procedure Information Date/Time: 03/16/24 1030 Procedure: TRANSESOPHAGEAL ECHO (JESSICA) Location: [facility] Vascular Lab Clinical information reviewed: Allergies Meds Physical Exam Airway Mallampati: II TM distance: >3 FB Neck ROM: full Cardiovascular Rhythm: regular Rate: normal Dental Pulmonary Abdominal Anesthesia Plan ASA 3 other (Conscious sedation.) Anesthetic plan and risks discussed with patient. Use of blood products discussed with patient who consented to blood products. Additional [facility] Note Patient here for follow up LAAO and pericardial effusion. Still denies chest pain, SOB, palpitations, and lightheadedness/syncope. Doing very well. Review of Systems Constitutional: Positive for malaise/fatigue. Cardiovascular: Positive for leg swelling (resolves by morning). Hematologic/Lymphatic: Bruises/bleeds easily. Musculoskeletal: Positive for arthritis, back pain and myalgias. All other systems reviewed and are negative.[facility] 02-09-2024 NoteCardiovascular Medicine [place] [facility] SUBJECTIVE Chief Complaint Patient presents with [...] complication, without long-term current use of insulin ([facility]/HCC) Benign prostatic hyperplasia with urinary obstruction Calculus [...] Left lower leg: Naman (more content not included)...[facility]05-05-2024 NotePatient discharged with family. Patient provided copy of AVS and discharge instructions. All questions and concerns addressed. All belongings with patient [facility]05-05-2024 NoteHospital Medicine Discharge Summary Final Discharge Diagnosis: [...] In April 2019 he presented to the [facility] with atrial fibrillation with controlled [...] switched propafenon to amiodarone. - Not on long term care administrator AC due to hx of falls and [...] Center 02/09/2024 9:40 AM Madison Paul NP [facility] 03/16/2024 10:30 AM [facility] [employer] HOLD[employer] ROOM [facility] [place] [facility] Your medication list START taking these [...] Medications These medications were sent to [facility] - [address] [place] [address] [facility] [place] [address], [facility] [address] amiodarone 200 mg tablet clopidogrel 75 mg tablet Tito is allergic to iodine, penicillins, shellfish containing products, and sulfa (sulfonamide antibiotics). Disposition: [place] [facility] [place]06) Discharge Condition: Stable Code Status: Full [...] days Lab Units 01/29/24 0603 01/28/24 0525 01/27/24 0550 SODIUM mmol/L 140 138 [...] and oriented x3. Cardiology: (more content not included)...[facility] 01-29-2024 NoteCardiology Progress Note Subjective Subjective: No [...] 86 QT Interval 316 QTC CALCULATION(BAZETT) 453 R-Berwind 8 T Wave Berwind 100 Impression Atrial fibrillation with rapid ventricular response Nonspecific ST and T wave abnormality Abnormal ECG When compared with ECG of 25-JAN-2024 04:26, Atrial fibrillation has replaced Sinus rhythm Nonspecific ST-t wave abnormalities are now Present Vent. rate has increased BY 72 BPM Confirmed by Chitra CROCKETT, L.S. (2) on 01/26/2024 3:07:09 PM Lab Results Component Value Date TROPONINI 0.84 () 01/25/2024 Transthoracic echo (TTE) limited Result Date: 01/27/2024 1 1 [facility] Heart Station [address] [id number] [phone] (fax) Echocardiogram-[facility] Name: TITO GONCALVES Study Date: 01/27/2024 08:18 AM B/P: 147 mmHg/62 mmHg HR: 67 bpm Date of : 1945 Location: [facility] Height: 72 in. Age: 79 [...] fibrinous material noted. Procedure Staff Reading Group: [facility] Evaluator: MARLEY Donohue, RDCS Ordering Physician: LIONEL MENA Transthoracic echo (TTE) limited Result Date: 01/26/2024 1 1 [facility] Heart Station [address] [place] [address] [phone] (fax) Echocardiogram-[facility] Name: TITO GONCALVES Study Date: 01/26/2024 07:59 AM B/P: 129 mmHg/74 mmHg HR: Date of : 1945 Location: [facility] Height: 72 in. Age: 79 [...] left atrium appears e (more content not included)...[facility]05-04-2024 Note Cardiology Progress Note Subjective Subjective: No [...] 86 QT Interval 316 QTC CALCULATION(BAZETT) 453 R-Berwind 8 T Wave Berwind 100 Impression Atrial fibrillation with rapid ventricular [...] (TTE) limited Result Date: 01/27/2024 1 1 [facility] Heart Station [address] [facility] [place] [address] [phone] (fax) Echocardiogram-[facility] Name: TITO GONCALVES Study Date: 01/27/2024 08:18 AM B/P: 147 mmHg/62 mmHg HR: 67 bpm Date of : 1945 Location: [facility] Height: 72 in. Age: 79 [...] fibrinous material noted. Procedure Staff Reading Group: [facility] Evaluator: MARLEY Donohue, RDCS Ordering Physician: LIONEL MENA Transthoracic echo (TTE) limited Result Date: 01/26/2024 1 1 [facility] Heart Station [address] [place] [address] (fax) Echocardiogram-[facility] Name: TITO GONCALVES Study Date: 01/26/2024 07:59 AM B/P: 129 mmHg/74 mmHg HR: Date of : 1945 Location: [facility] Height: 72 in. Age: 79 [...] in size. Right ventr (more content not included)...[facility]05-04-2024 Note Physical Therapy Physical Therapy Evaluation & Treatment Patient Name: Tito Goncalves : 1945 Today's Date: 01/28/2024 Time in: 1:53 pm Time out: 2:20 pm Total time: 27 minutes 01/28/24 1422 PT Last Visit PT Received On 01/28/24 General Subjective Both RN and pt agreeable to PT this afternoon. Pt denies pain and asleep upon insurance underwriter sales entering room however easily awakens. Cognition Overall Cognitive Status WFL Arousal/Alertness Appropriate responses to stimuli Orientation Level Oriented X4 Following Commands Follows all commands and directions without difficulty Communication Intact Cognition Comments pt had difficulty navigating back to correct room after first bout of ambulation however after 2nd bout able to navigate back to room without external cues from insurance underwriter sales. Therapeutic Exercise Therapeutic Exercise Time Entry 10 [...] tray table within reach. PT Assessment PT Assessment/SUPERVISOR CD AREA Summary Pt continues to progress towards goals [...] stable vital signs throughout session 01/27/24 02/10/24 --[facility] 01-28-2024 NoteHoital Medicine Daily Progress Note - 01/28/2024 11:20 AM; Room: 3167/3167-01 Admission: 01/24/2024 10:46 AM; Length of stay: 4 days THE HOSPITALIST TEAM PREFERS TO USE [employer] CH[employer] FOR COMMUNICATION 7AM-7PM. IF I DO NOT RESPOND WITHIN 15 MINUTES, PLEASE PAGE ME/CALL THROUGH THE BANK SECRECY ACT OFFICER. FROM 7PM-7AM, PLEASE PAGE [phone](COVR) Code Status: Full Code Barriers to Discharge: [...] complication and patient was admitted to the [facility] for over night monitoring to [...] Inpatient Problems Principal Problem: Paroxysmal atrial fibrillation ([facility]) Active Problems: Pericardial effusion Assessment and Plan [...] (Active) Date First Assessed/Time First Assessed: 01/25/24 0731 Hand Hygiene Completed: Yes Primary Wound Type: [...] 40 mg, oral, Daily (more content not included)...[facility]05-03-2024 Note Attestation signed by Srinath Joseph MD [...] Progress Note - 01/27/2024 12:46 PM; Room: [address] [place] [address] Admission: 01/24/2024 10:46 AM; Length of stay: 3 days THE HOSPITALIST TEAM PREFERS TO USE [employer] FOR COMMUNICATION 7AM-7PM. IF I DO NOT RESPOND WITHIN 15 MINUTES, PLEASE PAGE ME/CALL THROUGH THE BANK SECRECY ACT OFFICER. FROM 7PM-7AM, PLEASE PAGE [phone](COVR) Code Status: Full Code Barriers to Discharge: [...] mg, oral, Nightly ami (more content not included)...[facility]05-03-2024 NoteUTP CARDIOLOGY INPATIENT PROGRESS NOTE Reason for [...] ???F) Temporal 65 17 93 % -- 01/27/240 107/59 -- -- 70 11 94 % [...] 86 QT Interval 316 QTC CALCULATION(BAZETT) 453 R-Berwind 8 T Wave Berwind 100 Impression Atrial fibrillation with rapid ventricular [...] systolic function is normal. (more content not included)...[facility]05-03-2024 Note Attestation signed by Jay Benitez PT at 01/27/2024 11:18 AM This insurance underwriter sales (PT) provided one-on-one supervision, direction of patient [...] ECHO showed pericardial effusion, pt went to pathology laboratory director for pericardiocentesis and currently has a pericardial drain. Discharge: home General Family/Caregiver Present: Yes (daughter) Subjective: RN approved PT eval and OOB activity. Pt supine in bed, agreeable to PT session. Upon completion, pt seated in chair, daughter present, call light given. PT Diagnosis: impaired functional mobility Patient Active Problem List Diagnosis Atrial fibrillation ([facility]) Hypertensive disorder Mitral valve disorder Obstructive sleep apnea syndrome Arrhythmia Bile duct obstruction Fall Gastroesophageal reflux disease without esophagitis Hyponatremia Mixed hyperlipidemia Pneumobilia Restless leg syndrome S/P total knee arthroplasty, right Stage 3a chronic kidney disease ([facility]) Subdural hematoma ([facility]) Type 2 diabetes mellitus without complication, without long-term current use of insulin ([facility]) Benign prostatic hyperplasia with urinary obstruction Calculus of ureter Diabetes mellitus ([facility]) Dry eyes Exposure keratitis Exudative age-related macular [...] Level of Function Prior Function Level of [place]: Independent with ADLs and functional transfers, Independent [...] device, No upper extremity (more content not included)...[facility]05-03-2024 NoteOccupational Therapy Occupational Therapy Evaluation Patient Name: [...] Level of Function Prior Function Level of [place]: Independent with ADLs and functional transfers, Independent [...] Eating meals?: None (Independent) Total Score OT [facility]: 21 Assessment/Plan OT Assessment OT Impairments: [...] 5 times per wee (more content not included)...[facility]05-02-2024 Note Attestation signed by Lionel Mena MD [...] Goncalves Age - 79 y.[facility]. [facility] 1945 [id number] Date of Admission - 01/24/2024 10:46 AM [...] Patient in limited echocar (more content not included)...[facility]05-02-2024 Note Attestation signed by Zoran Daniel MD [...] Value Ventricular Rate 52 Atrial Rate 52 SD Interval 184 QRS DURATION 84 QT Interval 424 QTC CALCULATION(BAZETT) 394 P Berwind 79 R-Berwind 51 T Wave Berwind 76 Impression Sinus bradycardia Nonspecific T wave abnormality Abnormal ECG (more content not included)...[facility]05-02-2024 Note 01/26/24 1243 Admission Assessment Questions Verify insurance with patient Yes Do you understand medical disease or what brought you into the hospital? Yes Who is your current PCP? Dr Metz in [place] Can I schedule a follow up appointment for you at the time of discharge? Yes Do you understand why you are taking your current medications? Yes Are you taking your medications as prescribed? Yes Did patient provide teach back? Yes Would you like use our pharmacy [facility] to fill your new medications at the time of Discharge? No Does the patient have a shelter case manager assigned to them through their [...] able to send link and activate MyChart? [facility] Note Attestation signed by Zoran Daniel [...] -- 110 kg (242 lb 15.2 oz) 01/25/24 0525 -- -- -- 57 15 96 % -- 01/25/24 0525 92/60 -- -- -- -- -- -- 01/25/24 0520 -- -- -- 55 15 97 % -- 01/25/24 0520 93/62 -- -- -- -- -- [...] -- -- 01/25/24 0 (more content not included)...[facility] 01-25-2024 NotePatient: Tito Goncalves Procedure Information Date/Time: 01/25/24 1800 Procedure: Pericardiocentesis Location: [facility] / [facility] (Cath) Providers: Oliver Crane [...] products. Plan discussed with attending. Additional Equipment [facility]sSelect [facility]-01-2024 Note CLINICAL INFORMATION: Ground level fall, recurrent [...] in this report. Electronically signed: Trenton Martinez. [address] [place], [place] [address]605-01-2024 NoteResponded to rr Hypotension fall Pt seen [...] ordered d/w cardiology pt to move to [facility]04-30-2024 NotePharmacy Dosing Service - Vancomycin Initial Consult Note Pharmacy has been consulted for the dosing and evaluation of Drug: Vancomycin Indication: surgical prophylaxis Other Antimicrobial Regimens: None Labs and Renal Function Total body weight: 112 kg (248 lb) [place] body weight: 77.6 kg (171 lb 1.2 [...] is afebrile and hemodynamically stable. Presenting to [facility] for closure of left atrial [...] or questions Thank you, Rose Tomas, PharmD, 01/24/24[facility]04[facility] Note Patient: Tito Goncalves Procedure Information Date/Time: 01/24/24 1300 Procedure: Left atrial appendage closure (transvenous) - ADRIENNE WILL CALL Location: [facility] 3 / [facility] (Cath) Providers: Oliver Crane MD Clinical information reviewed: Allergies Meds Physical Exam Airway Mallampati: II TM distance: >3 FB Neck ROM: full Cardiovascular Rhythm: regular Rate: normal Dental Pulmonary Abdominal Anesthesia Plan ASA 3 other (Conscious sedation.) Anesthetic plan and risks discussed with patient. Use of blood products discussed with patient who consented to blood products. Additional Equipment RequestsSelect [facility]02-05-2024 Evaluation note* Encounter Date Diagnosis Assessment Notes [...] are maintaining regular scheduled appts with their inflated pad buffer. Scheduled for LAAO procedure but postponed until spring. Fall precautions. Oct, Obstructive sleep apnea (ICD-10 - G47.33) Auto CPAP 10-15, Facial Mask This patient is aware of the benefits associated with CUBA: With continued use, the patient reduces the risk for OR, CVA, HTN, cardiac dysrhythmias and sudden cardiac [...] Exercise w/ goal of 10% weight loss Bi[employer] Other 02-02-2024 NoteRight Eye Quality was good. Scan locations included subfoveal. Progression has been stable. Findings include abnormal foveal contour, disciform scar. Left Eye Quality was good. Scan locations included subfoveal. Progression has been stable. Findings include normal observations.[facility] [id number] History of Present illness Narrative* Jose R [...] now given soon to be trip to [place] as well as side effects from last [...] artificial tears were recommended. documented in this encounterNevada Regional Medical [id number] History of Present illness Narrative* Shannen Chahal - 03/16/2023 11:20 AM EDT Ortho Nurse - Established Patient Intake Room#: 5 Date: 03/16/2023 11:20 AM Patient: Tito Goncalves MR#: [id number] : 1945 Age: 78 y.o. 1yr R [...] allergy, and sulfa antibiotics. * Azul Rachel APRN-ASSET MANAGEMENT ANALYST - 03/16/2023 11:20 AM EDT HPI: Patient [...] have reviewed the findings of the clinical sales support advisor and agree with their assessment. Ortho Nurse - Established Patient Intake Room#: 5 Date: 03/16/2023 11:20 AM Patient: Tito Goncalves MR#: [id number] : 1945 Age: 78 y.o. 1yr R [...] allergy, and sulfa antibiotics. documented in this [facility]04-29-2023 Evaluation note* Encounter Date Diagnosis Assessment Notes Treatment Notes Treatment Clinical Notes Dec, Subarachnoid hemorrhage (ICD-10 - I60.9) [facility]OxyD[facility] Other 04-12-2023 Evaluation note* Encounter Date Diagnosis [...] are maintaining regular scheduled appts with their inflated pad buffer. Dec, Obstructive sleep apnea (ICD-10 - G47.33) Auto CPAP 10-15, Facial Mask This patient is aware of the benefits associated with CUBA: With continued use, the patient reduces the risk for OR, CVA, HTN, cardiac dysrhythmias and sudden cardiac [...] and weight loss. Improved control of BS BiOxyDyn Other 02-15-2023 Evaluation note* Encounter Date Diagnosis Assessment Notes Treatment Notes Treatment Clinical Notes Oct, Cholecystitis (ICD-1 0 - K81.9) [facility] [employer] Other 02-14-2023 NotePatient Education Material [facility] ENDOSCOPY DEPARTMENT FOLLOW UP CARE ? For [...] physician?s office at: THANK YOU FOR CHOOSING [facility] ENDOSCOPY DEPARTMENT FOR YOUR PROCEDURE! [phone] This information is not intended to replace advice given to you by your health care provider. Make sure you discuss any questions you have with your health care provider. ExitCare? Patient Information ?2016 [employer] Custom Education added 09/2018[facility]02-14-2023 NoteNursing Discharge Summary Entered On: 11/09/2022 8:44 EST Performed On: 11/09/2022 8:43 EST by Sariah Schreiber RN DC Information Discharged to : Home Mode [...] Diet/Nutrition : Verbalizes understanding Sariah Schreiber RN - 11/09/2022 8:43 EST Safety Education Adult Grid Safety, Fall : Verbalizes understanding Sariah Schreiber RN 11/09/2022 8:43 EST Additional Session Learner/s Present : Daughter Sariah Schreiber RN - 11/09/2022 8:43 [facility]SC[facility]* Encounter Date Diagnosis Assessment [...] sleep apnea (ICD-10 - G47.33) Auto CPAP 10-, Facial Mask This patient is aware of the benefits associated with CUBA: With continued use, the patient reduces the risk for OR, CVA, HTN, cardiac dysrhythmias and sudden cardiac [...] INR being monitored, no bleeding complications noted BiOxyDyn Other 10-13-2022 History of Present illness Narrative* Luis Wang LPN - 07/08/2022 11:20 AM EDT Ortho Nurse - Established Patient Intake Room#: 2 4 month Right TKA, some pain of 1-2 when weed eating, going great Date: 07/08/2022 11:51 AM Patient: Tito Goncalves MR#: [id number] : 1945 Age: 77 y.o. Referring Physician: [...] have reviewed the findings of the clinical sales support advisor and agree with their assessment. Ortho Nurse - Established Patient Intake Room#: 2 4 month Right TKA, some pain of 1-2 when weed eating, going great Date: 07/08/2022 11:51 AM Patient: Tito Goncalves MR#: [id number] : 1945 Age: 77 y.o. Referring Physician: [...] allergy, and sulfa antibiotics. documented in this [facility] Discharge instructions Patient Education [...] urethra. Follow these instructions at home: Take [id number] and prescription medicines only as told by [...] 09/12/2006 Document Revised: 08/07/2019 Document Reviewed: 10/17/2017 [employer] Patient Education 2020 [employer]. Follow Up Care 04/27/2021 11:05:10 With:GAGE UMANZOR, Mc Blackman, URL Address: [facility] [address], [place] [address] [phone] When: Unknown Comments:KIM [facility] Rosalina 07-14-2022 History of Present illness Narrative* Shannen Tirso - 04/08/2022 10:00 AM EDT Ortho Nurse - Established Patient Intake Room#: 5 Date: 04/08/2022 9:50 AM Patient: Tito Goncalves MR#: [id number] : 1945 Age: 77 y.o. 3wk S/P [...] allergy, and sulfa antibiotics. * Azul Rachel APRN-ASSET MANAGEMENT ANALYST - 04/08/2022 10:00 AM EDT HPI: Tito [...] roller. All pertinent portions of the clinical sales support advisor documentation was reviewed and agree. EDYTA Ayala I have reviewed the findings of the clinical sales support advisor and agree with their assessment. EDYTA Ayala Ortho Nurse - Established Patient Intake Room#: 5 Date: 04/08/2022 9:50 AM Patient: Tito Goncalves MR#: [id number] : 1945 Age: 77 y.o. 3wk S/P [...] allergy, and sulfa antibiotics. documented in this encounterT[facility]06-21-2022 Miscellaneous Notes* Nursing Notes - [...] Information Source Information Source patient Contact Information Recorder Of Deeds Name Gini Medrano RN Case Manager's Living [...] that he plans to return home with [facility]. The patient states that his daughter [...] assist with discharge plans. documented in this encounterHealthsouth [facility] Hospital Of [facility] SpringsDreamweaver International [id number] Note* Nursing Notes - Kirsten Crawford RN - 03/16/2022 3:01 PM EDT Discharge instructions gone over with pt and pt's daughter at this time by Regina GAVIN. Both, verbalize understanding and deny any further questions. Hemovac drain removed at this time, tip intact upon removal, pt tolerated well. [employer] [id number] History of Present illness Narrative* Blanca Peck PTA - 03/16/2022 2:21 PM EDT 03/16/22 1421 [...] Transfer Skill: Sit To Stand, Rehab Eval [place] (Sit-Stand Transfers) (mod I) Physical Assist/Nonphysical Assist: Sit/Stand 1 person assist Weight-Bearing Restrictions: Sit/Stand weight-bearing as tolerated Assistive Device For Transfer: Sit/Stand armed chair Gait Skills, PT Eval Level of [place]: Gait (mod I) Weight-Bearing Restrictions: Gait weight-bearing as tolerated Assistive Device For Transfer: Gait 2 wheeled walker Gait Distance (600ft; patient demonstrates a good quality heel - toe pattern consistently throughtout treatment) Stair Negotiation [place] Level: Stair Negotiation supervision Physical Assist: Stair [...] 100mg 4.00 Total $ 20.60 Birgit Henriquez (Tray Line Worker) reviewed medications with patient regarding indications, directions [...] Sit to Stand, Rehab Eval Level of [place]: Sit/Stand contact guard Physical Assist/Nonphysical Assist: Sit/Stand 1 person assist Weight-Bearing Restrictions: Sit/Stand weight-bearing as tolerated Assistive Device for Transfer: Sit/Stand wheeled walker;armed chair Transfer Skill: Stand to Sit, Rehab Eval Level of [place]: Stand/Sit contact guard Physical Assist/Nonphysical Assist: Stand/Sit [...] Prior Functional Impairment in Daily Activity [facility] Daily Activity Inpatient Short Form Putting on/Taking Off Lower Body Clothing 3 - A Little Assistance Bathing 3 - A Little Assistance Toileting 3 - A Little Assistance Putting on/Taking Off Upper Body Clothing 3 - A Little Assistance Grooming 3 - A Little Assistance Eating 4 - No Assistance [facility]RENT [facility] Activity Raw Score 19 [facility] Activity Functional Limitation/Modifier 42.80% Currently Impaired [...] initiation of treatment Therapist Information License # [id number] In addition to above, ambulated with CGA using FWW. Reclined in chair at end of session with his call light and personal items placed in reach. Jennifer Saab OTR/L 03/16/2022 * Pato Gutierrez - 03/16/2022 11:46 AM EDT Pharmacy to Dose - Warfarin Note PATIENT: Tito Goncalves Room/Bed: Desired INR range: 2-3 Indication(s): Atrial Fibrillation Medications: No drug interactions were identified based on the patient's current therapy. Current Diet Status: Regular Recent bleeding/bleeding event: None noted Last labs: INR Date Value Ref Range Status 03/16/2022 1.37 (H) 0.85 - 1.10 Final Comment: 2.0-3.0 THERAPEUTIC RANGE 2.5-3.5 MECHANICAL VALVE RANGE Testing performed at [place], [place] [address] - ALBUMIN Date Value Ref Range Status 03/16/2022 3.3 (L) 3.5 - 5.0 G/dl Final - Plan: An order was placed for Coumadin 7.5 mg today x 1 based on INR = 1.37. A Pharmacist will continue to follow and make dose changes as clinically appropriate. Please contact pharmacy if there are any questions. Signed: Pato Gutierrez Pharmacist Phone: [phone] Date/Time: 03/16/2022 11:46 AM * Yashira Valencia, [...] 3/5) LLE WFL Supine to Sit Mobility [place] Level: Supine->Sit stand-by assist Physical Assist: Supine->Sit (1 person) Bed Features/Set-up: Supine->Sit Head of bed elevated Skilled Rationale Verbal cues;Sequencing Sit to Stand Transfer [place] Level: Sit->Stand stand-by assist Physical Assist: Sit->Stand (1 person) Assistive Device: Sit->Stand 2 wheeled walker;gait belt Skilled Rationale Verbal cues;Hand placement;Sequencing Stand to Sit Transfer [place] Level: Stand->Sit stand-by assist Physical Assist: Stand->Sit (1 person) Assistive Device: Stand->Sit 2 wheeled walker;gait belt Skilled Rationale Verbal cues;Hand placement;Sequencing;Controlled descent for sitting Sitting Balance Static Sitting-Level of Assistance Independent Standing Balance Static Standing-Level of Assistance Stand-by assist Dynamic Standing-Level of Assistance Stand-by assist Standing-Balance Support 2 wheeled walker;Gait belt Skilled Rationale Verbal cues;Full extension to upright positioning/posture;Upright gaze/neck extension Gait Assessment [place] Level: Gait contact guard assist Physical Assist: [...] (248 lb) 02/08/18 117.9 kg (260 lb) [place] body weight: 77.6 kg (171 lb 1.9 [...] plan. Patient plans to return home with [facility]. His daughter will be staying with [...] information with orders for PT/INR faxed to [facility], spoke with staff who confirm start of care for tomorrow. Follow up appointment scheduled for 04/08/22 @ 10:00 am. * Grupo Morgan RPh,PharmD - 03/15/2022 6:24 PM EDT Pharmacy to Dose - Warfarin Note PATIENT: Tito Goncalves Room/Bed: [facility] Desired INR range: 2-3 Indication(s): Atrial Fibrillation Last labs: INR Date Value Ref Range Status 03/15/2022 1.36 (H) 0.85 - 1.10 Final Comment: 2.0-3.0 THERAPEUTIC RANGE 2.5-3.5 MECHANICAL VALVE RANGE Testing performed at [place], [place] [address] - ALBUMIN Date Value Ref Range Status 02/18/2022 3.8 3.5 - 5.0 G/dl Final - Plan: An order was placed for 5 mg based on current Home Dosage. A Pharmacist will continue to follow and make dose changes as clinically appropriate. Please contact pharmacy if there are any questions. Signed: Grupo Morgan RPh,PharmD, Pharmacist Phone: [phone] Date/Time: 03/15/2022 6:24 PM * Samantha Miner [...] you require anything further documented in this [facility]06-[facility] Note* Nursing Notes - Dian Roberts [...] anxious to head home and settle in. [facility] Discharge instructions* Discharge Instructions* [...] days or until therapeutic with results to [facility]. , Contact Office ([phone]) if: > Total Knee ROM < 90 [...] sent through Care Everywhere. * docusate (oral/rectal) (Bhutanese) * oxycodone (Bhutanese) documented in this [facility]06-21-20[facility] Note* Plan of Care - Regina [...] discharge/transition of care. Outcome: Adequate for Discharge [facility]06-21-20[facility] Note* Nursing Notes - Kirsten Crawford RN - 03/16/2022 11:39 AM EDT Assessment unchanged from previous by this nurse unless otherwise noted in flowsheet [facility]06-21-2022 Hospital course Narrative* Domenico Ferguson MD - 03/16/2022 8:54 AM EDT Images from the original note were not included. Discharge Summary Name: Tito Goncalves Age: 77 y.o. Birthday: 1945 Admit Date: 03/15/2022 8:10 AM Discharge Date: 03/16/2022 Discharge Time: 03/16/2022 Discharge Unit: [facility] Length of Stay: LOS: [...] insulin restless leg. Kidney stones, admitted to [facility] for elective rig ht total knee [...] as: COUMADIN STOP taking these medications Glucosamine-Chondroitin 8606-4160 MG/30ML LIQD Follow-up: No follow-up provider specified. Upcoming Appointments (up to five)-Some appointments for Medical Center outpatient clinics or diagnostic testing locations are not displayed below Provider Department Dept Phone 04/08/2022 10:00 AM Azul [facility] [phone] Total coordination of discharge care taking greater that 35 minutes documented in this [facility]06-[facility] Note* Plan of Care - Birgit [...] pillows Note: IVÁN Hose, Foot pumps T [employer] [id number] Note* Nursing Notes - Birgit Thakur RN - 03/16/2022 3:09 AM EDT Assessment remains unchanged unless otherwise noted in flow sheet. Pt denies pain. Neuro/pulses unchanged. New bag of NS hung at this time. Vitals WDL. Pt denies any needs and call light is in reach. [facility]* Nursing Notes - Birgit Thakur RN - 03/15/2022 11:59 PM EDT Assessment remains unchanged unless otherwise noted in flow sheet. Pt denies any pain. Neuro/pulsesunchanged. NS infusing @ 100ml/hr and Ancef administered. Pt denies any needs and call light is in reach. [facility]* Nursing Notes - Birgit Thakur RN - 03/15/2022 8:06 PM EDT RT called at this time due to O2 change from 1.5 to 1L. Pt also has home CPAP/BIPAP device. RT madeaware. [facility]* Nursing Notes - Araseli Ron RN - 03/15/2022 5:53 PM EDT Patient tolerating clear liquids at this time, diet advanced per orders. [facility] Consult note* aJvier-Cameron Ferguson MD - 03/15/2022 4:10 PM EDT History and Physical Examination 03/15/22 4:10 PM Chief Complaint: Right total knee arthroplasty History of Present Illness: Patient is a 77 y.o. male presents for [facility] for elective right total knee arthroplastyDr. Bedoya March 15 Internal medicine consult added [...] mg by mouth daily. Historical Provider Glucosamine-Chondroitin 4311-4391 MG/30ML Liquid Take by mouth. Historical Provider [...] 81 mg by mouth daily. 03/04/2022 Glucosamine-Chondroitin 5959-2942 MG/30ML Liquid Take by mouth. Multiple Vitamins-Minerals [...] OT, ST and SW. Domenico Ferguson MD [facility] Consult note* Domenico Ferguson MD - 03/15/2022 4:10 PM EDT History and Physical Examination 03/15/22 4:10 PM Chief Complaint: Right total knee arthroplasty History of Present Illness: Patient is a 77 y.o. male presents for [facility] for elective right total knee [...] mg by mouth daily. Historical Provider Glucosamine-Chondroitin 2176-8424 MG/30ML Liquid Take by mouth. Historical Provider [...] 81 mg by mouth daily. 03/04/2022 Glucosamine-Chondroitin 7740-2853 MG/30ML Liquid Take by mouth. Multiple Vitamins-Minerals [...] SW. Domenico Ferguson MD documented in this encounterT[facility] Center06-20-2022 Note* Nursing Notes - Araseli Ron RN - 03/15/2022 2:26 PM EDT Patient to OR at this time. [facility]* Nursing Notes - Araseli Ron RN - 03/15/2022 11:57 AM EDT Patient assessment unchanged from previous. Patient ambulated to bathroom and voided. Patient denies any needs at this time. Call light in reach. [facility] [employer] [id number] Note* Nursing Notes - Gini Medrano RN - 02/18/2022 1:25 PM EDT 02/18/22 1324 Information Source Information Source patient Contact Information Recorder Of Deeds Name Gini Medrano RN Case Manager's Living [...] that he plans to return home with [facility]. The patient states that his daughter [...] to follow and assist with discharge plans. T [employer] [id number] History of Present illness Narrative* Luis Wang LPN - 2022 1:10 PM EDT Ortho Nurse - Established Patient Intake Room#: 1 Right knee pain of 9, no interventions, falls, or injuries, came in today with left knee pain, left knee revision 2016 Dr Bedoya Date: 2022 1:06 PM Patient: Ttio Goncalves MR#: [id number] : 1945 Age: 77 y.o. Referring Physician: [...] g, shellfish allergy, and sulfa antibiotics. * Psator Bedoya MD - 2022 1:10 PM EDT [...] a right total knee arthroplasty for optimal chcf management. PHYSICAL EXAM: This is an alert, [...] joint space, subchondral sclerosis, osteophyte formation, and zeky-qr-xbxf contact with posterior loosebodies. He has a [...] of limb, and ultimately loss of life. shelter expectations, risks and general implant surv ivorship were also discussed. Despite these risks, the patient would like to proceed with surgical planning. 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) BiOxyDyn Other Evaluation + Plan note No data available for this section [facility] [employer] evaluation note* Diagnosis Right knee pain, unspecified chronicity- Primary Pain in prosthetic joint, sequela documented in this encounter [facility]* Diagnosis Preop testing- Primary Preoperative examination, [...] Hyposmolality and/or hyponatremia documented in this encounter [facility] noteNo [employer] [employer] Other Evaluation note* Diagnosis Hx of total knee arthroplasty, right- Primary [facility]* Diagnosis Hx of total knee arthroplasty, right- Primary documented in this encounter [facility] noteN/ADept. 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- Primary Age-related nuclear cataract of both eyes Dry eyes Unspecified tear film insufficiency [facility] encounter [facility]* Diagnosis Onset Date Resolution Status Atrial fibrillation acute Chronic kidney disease acute GERD (gastroesophageal reflux disease) acute Hemopericardium acute Hypercholesterolemia acute Hypertension acute CUBA (obstructive sleep apnea) acute [facility] Work Phone: Evaluation note* Diagnosis Onset Date Resolution Status Atrial fibrillation acute Chronic kidney disease acute Hemopericardium acute Hypertension acute Obesity acute CUBA (obstructive sleep apnea) acute Cellulitis of right upper extremity noneactive [facility] Work Phone: Evaluation note* Diagnosis Onset Date Resolution Status Atrial fibrillation acute Chronic kidney disease acute Hemopericardium acute Hypertension acute Obesity acute CUBA (obstructive sleep apnea) acute Cellulitis of right upper extremity noneactive Atrial fibrillation acute Chronic kidney disease acute Hypertension acute Obesity acute CUBA (obstructive sleep apnea) acute Type 2 diabetes mellitus with hyperglycemia acute [facility] Work Phone: Evaluation note* Diagnosis Onset [...] Type 2 diabetes mellitus with hyperglycemia acute [facility] Work Phone: Evaluation note* Diagnosis Onset [...] diabetes mellitus with hyperglycemia acute COVID noneactive [facility] Work Phone: Evaluation note* Diagnosis Onset Date Resolution Status Anemia acute Atrial fibrillation acute Chest pain acute Chronic kidney disease acute Hypertension acute CUBA (obstructive sleep apnea) acute Type 2 diabetes mellitus with hyperglycemia acute Hypertension acute Type 2 diabetes mellitus with hyperglycemia acute COVID noneactive Abrasion of ear canal acute [facility] Work Phone: Evaluation note* Diagnosis PLMD [...] Type 2 diabetes mellitus with hyperglycemia acute [facility] Work Phone: Evaluation note* Diagnosis 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- Primary Age-related nuclear cataract of both eyes Dry eyes Unspecified tear film insufficiency [facility]* Diagnosis 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- Primary Dry eyes Unspecified tear film insufficiency Age-related nuclear cataract of both eyes Type 2 diabetes mellitus without complication, without long-term current use of insulin ([facility]) documented [facility]* Diagnosis Seborrheic keratosis Melanocytic nevus of trunk Benign neoplasm of skin of trunk, except scrotum Lentigines Capillary angioma Nevus, non-neoplastic Telangiectasia of face Actinic keratosis Seborrheic keratosis, inflamed History of malignant melanoma of skin Personal history of malignant melanoma of skin [facility]* Diagnosis CUBA (obstructive sleep apnea)- [...] h hyperglycemia acute January 09, 2025 9:37am [facility] Work Phone: History general Narrative - Reported* Type Description Date Medical History hyperlipidemia Medical History GERD Medical History HTN Medical History a.fib Medical History recurrent choledocholithiasis Surgical History LEFT KNEE Surgical History CHOLECYSTECTOMY 2012 Hospitalization History see above BiOxyDyn Other History general Narrative - Reported* Type [...] stone removal 10/2022 Hospitalization History see above BiOxyDyn Other History general Narrative - Reported* Type Description Date Medical History Adrenal nodule Medical History Osteoarthritis of right knee Medical History Gastro-esophageal re flux disease with esophagitis, without bleeding Medical History Obstructive sleep apnea Medical History Non-rheumatic mitral regurgitati on Medical History Essential hypertension Medical History Hyperlipidemia, mixed Medical History Stage 3a chronic kidney disease (CKD) Medical History Controlled type 2 diabetes darian dislas with hyperglycemia Medical History Paroxysmal atrial fibrillation [...] stone removal 10/2022 Hospitalization History see above BiOxyDyn Other History general Narrative - Reported* Type [...] History Colonoscopy 2020 Hospitalization History see above [facility]OxyDyn Other Hospital Discharge instructions Additional Instructions 1. Sleep on 2 pillows 2. You may shower late tomorrow afternoon, keep wounds dry and clean 3. Small amount of Vaseline to sutures twice daily 4. Tylenol or Motrin for discomfort 5. See Dr. Freitas in 1 [facility] Work Phone: Hospital Discharge instructions Additional Instructions sleep on 2 pillows ok to shower tomorrow am, keep wound dry and clean small amount of vasaline to sutures [address] Freitas in 1 [facility] Work Phone: Progress note No data available for this section [facility] reason for referral (narrative)* Name Reason for referral NA NA Dept. of Dermatology Reason for visit Narrative* Auth/Cert Specialty Diagnoses / Procedures Referred By Bret t Referred To Contact Diagnoses Osteoarthritis of right knee, unspecified osteoarthritis type Osteoarthritis of right knee, unspecified osteoarthritis type [M17.11] Procedures SD TOTAL KNEE ARTHROPLASTY ARTHROPLASTY KNEE TOTAL Pastor Bedoya MD [address] [place] [address] Referral ID Status Reason Start Date Expiration Date Visits Re quested Visits Authorized [id number] 02/01/2022 1 1 Helpa Summary Purpose Family History No Family History [...] mellitus Unknown Heart disease Unknown Advance Directives No Advanced Directives Records [...] XR KNEE LEFT 3 VIEWS Azul Rachel, SCHOOL PLANT CONSULTANT-ASSET MANAGEMENT ANALYST [address] [place] [phone] Specialty Diagnoses / Procedures Referred By Contac t Referred To Contact Diagnoses Pain in prosthetic joint, sequela Procedures XR KNEE LEFT 3 VIEWS Pastor Bedoya MD [address] [place] [address] Referral ID Status Reason Start Date Expiration Date V isits Requested Visits Authorized [id number] New Request 2022 02/15/2023 1 1 Specialty Diagnoses / Procedures Referred By Contac t Referred To Contact Diagnoses Right knee pain, unspecified chronicity Procedures XR KNEE RIGHT 4+ VIEWS Pastor Bedoya MD [address] [place] [address] Referral ID Status Reason Start Date Expiration Date V isits Requested Visits Authorized [id number] New Request 01/15/2022 02/09/2023 1 1 Specialty Diagnoses / Procedures Referred By Contac t Referred To Contact Social Work Diagnoses Restless leg syndrome Stage 3a chronic kidney disease S/P total knee arthroplasty, right Paroxysmal atrial fibrillation Type 2 diabetes mellitus without complication, without long-term current use of insulin Domenico Ferguson MD [address] [place] [phone] Referral ID Status Reason Start Date Expiration Date V isits Requested Visits Authorized [id number] New Request 03/16/2022 04/10/2023 1 1 Specialty Diagnoses / Procedures Referred By Contac t Referred To Contact Diagnoses Acute postoperative pain of right knee Samantha Miner [address] [place] [address] Referral ID Status Reason Start Date Expiration Date V isits Requested Visits Authorized [id number] New Request 03/15/2022 04/09/2023 1 1 Scheduling Instructions . Specialty Diagnoses / Procedures Referred By Contac t Referred To Contact Physical Therapy Diagnoses Hx of total knee arthroplasty, right Azul Rachel, DEQUAN-ASSET MANAGEMENT ANALYST [address] [place] [address] [facility] [address] [place] [address] Referral ID Status Reason Start Date Expiration Date V isits Requested Visits Authorized [id number] New Request 04/08/2022 05/03/2023 1 1 Specialty Diagnoses / Procedures Referred By Contac t Referred To Contact Diagnoses Hx of total knee arthroplasty, right Procedures XR KNEE RIGHT 3 VIEWS Azul Rachel APRN-ASSET MANAGEMENT ANALYST [address] [place] [address] Referral ID Status Reason Start Date Expiration Date V isits Requested Visits Authorized [id number] New Request 03/31/2022 04/25/2023 1 1 Specialty Diagnoses / Procedures Referred By Contac t Referred To Contact Diagnoses Hx of total knee arthroplasty, right Procedures XR KNEE RIGHT 3 VIEWS Pastor Bedoya MD [address] [place] [address] Referral ID Status Reason Start Date Expiration Date V isits Requested Visits Authorized [id number] New Request 07/02/2022 07/27/2023 1 1 Specialty Diagnoses / Procedures Referred By Bret t Referred To Contact Diagnoses Hx of total knee arthroplasty, right Procedures XR BONE LENGTH STUDY Pastor Bedoya MD [address] [place] [address] Referral ID Status Reason Start Date Expiration Date V isits Requested Visits Authorized [id number] New Request 07/02/2022 07/27/2023 1 1 Referral ID Status Reason Start Date Expiration Date V isits Requested Visits Authorized [id number] New Request 03/15/2023 04/08/2024 1 1 History of Present Illness * Azul Rachel, SCHOOL PLANT CONSULTANT-ASSET MANAGEMENT ANALYST - 03/20/2020 11:20 AM EDT HPI: Patient [...] have reviewed the findings of the clinical sales support advisor and agree with their assessment. Ortho Nurse Established Patient Intake Room#: 5 Date: 03/20/2020 11:10 AM Patient: Tito Goncalves MR#: [id number] : 1945 Age: 75 y.o. 3 yr [...] 03/20/2020 11:10 AM Patient: Tito Goncalves MR#: [id number] : 1945 Age: 75 y.o. 3 yr [...] follow up [facility] follow up, chest pain [phone] sinus problems Reason for Visit Atrial fibrillation Chronic kidney disease Hypertension Obesity CUBA (obstructive sleep apnea) Type 2 diabetes mellitus with hyperglycemia Anemia Atrial fibrillation Chest pain Chronic kidney disease Hypertension CUBA (obstructive sleep apnea) Type 2 diabetes mellitus with hyperglycemia Hypertension Type 2 diabetes mellitus with hyperglycemia COVID Chief Complaint [facility] follow up, chest pain [phone] sinus problems Rt ear pain Reason for Visit Anemia Atrial fibrillation Chest pain Chronic kidney disease Hypertension CUBA (obstructive sleep apnea) Type 2 diabetes mellitus with hyperglycemia Hypertension Type 2 diabetes mellitus with hyperglycemia COVID Abrasion of ear canal Chief Complaint [phone] sinus p roblems Rt ear pain wellness Reason for Visit Hypertension Type 2 diabetes mellitus with hyperglycemia COVID Abrasion of ear canal Atrial fibrillation Chronic kidney disease Hypertension Obesity CUBA (obstructive sleep apnea) Type 2 diabetes mellitus with hyperglycemia Chief Complaint Admit Date CC Adult Risk [...] content) DATE CREATED AUTHOR 03/21/2018 [facility] DATE CREATED AUTHOR AUTHOR'S ORGANIZ ATION 06/15/2019 [facility] DATE CREATED AUTHOR AUTHOR'S ORGANIZ ATION 03/25/2022 [facility] DATE CREATED AUTHOR AUTHOR'S ORGANIZ ATION 05/04/2022 Dany Eaton [facility] DATE CREATED AUTHOR AUTHOR'S ORGANIZ ATION 10/04/2022 [facility] DATE CREATED AUTHOR AUTHOR'S ORGANIZ ATION 02/02/2023 [facility] DATE CREATED AUTHOR AUTHOR'S ORGANIZ ATION 03/05/2023 [facility] DATE CREATED AUTHOR AUTHOR'S ORGANIZ ATION 03/20/2023 [facility] DATE CREATED AUTHOR AUTHOR'S ORGANIZ ATION 07/12/2023 [facility] DATE CREATED AUTHOR AUTHOR'S ORGANIZ ATION 11/04/2024 [facility] DATE CREATED AUTHOR AUTHOR'S ORGANIZ ATION 01/04/2025 [facility] EP[facility] DATE CREATED AUTHOR AUTHOR'S ORGANIZ ATION 01/13/2025 [facility] Reason for Visit (unrecogniz ed section and content) Reason Comments Follow-up Status Reason Specialty Diagnoses / Procedures Referred By Contact Referred To Contact New Request Diagnoses History of revision of total replacement of left knee joint Procedures XR KNEE LEFT 3 VIEWS Azul Rachel, SCHOOL PLANT CONSULTANT-ASSET MANAGEMENT ANALYST [address] [place] [phone] Reason Comments Pain Specialty Diagnoses / Procedures Referred By Contac t Referred To Contact Diagnoses Pain in prosthetic joint, sequela Procedures XR KNEE LEFT 3 VIEWS Pastor Bedoya MD [address] [place] [address] Referral ID Status Reason Start Date Expiration Date V isits Requested Visits Authorized [id number] New Request 2022 02/15/2023 1 1 Specialty Diagnoses / Procedures Referred By Contac t Referred To Contact Diagnoses Right knee pain, unspecified chronicity Procedures XR KNEE RIGHT 4+ VIEWS Pastor Bedoya MD [address] [place] [address] Referral ID Status Reason Start Date Expiration Date V isits Requested Visits Authorized [id number] New Request 01/15/2022 02/09/2023 1 1 Specialty Diagnoses / Procedures Referred By Contac t Referred To Contact Diagnoses Hx of total knee arthroplasty, right Procedures XR KNEE RIGHT 3 VIEWS Azul Rachel, SCHOOL PLANT CONSULTANT-ASSET MANAGEMENT ANALYST [address] [place] [address] Referral ID Status Reason Start Date Expiration Date V isits Requested Visits Authorized [id number] New Request 03/31/2022 04/25/2023 1 1 Reason Comments Post Op Visit Specialty Diagnoses / Procedures Referred By Contac t Referred To Contact Diagnoses Hx of total knee arthroplasty, right Procedures XR KNEE RIGHT 3 VIEWS Pastor Bedoya MD [address] [place] [address] Referral ID Status Reason Start Date Expiration Date V isits Requested Visits Authorized [id number] New Request 07/02/2022 07/27/2023 1 1 Referral ID Status Reason Start Date Expiration Date V isits Requested Visits Authorized [id number] New Request 03/15/2023 04/08/2024 1 1 Reason [...] June 04, 2024 End: June 04, 2024 DEQUAN McphersonC Attending Provider Active Start: May End: June [...] February 27, 2024 End: February 27, 2024 Rehabilitator Relationship Specialty Start Date End Date Augustine Metz DO [address] [facility] [place] [address] PCP - General Internal Medicine 01/24/17 Rehabilitator Relationship Specialty Start Date End Date Augustine Metz, DO [address] [facility] [place] [address] PCP - General Internal Medicine 01/24/17 Rehabilitator Relationship Specialty Start Date End Date Augustine Metz, DO [address] [facility] [place] [address] PCP - General Internal Medicine 01/24/17 Rehabilitator Relationship Specialty Start Date End Date Augustine Metz, DO [address] [facility] [place] [address] PCP - General Internal Medicine 01/24/17 Rehabilitator Relationship Specialty Start Date End Date Augustine Metz DO [address] [facility] [place] [address] PCP - General Internal Medicine 01/24/17 Rehabilitator Relationship Specialty Start Date End Date Augustine Metz DO [address] [facility] [place] [address] PCP - General Internal Medicine 01/24/17 Rehabilitator Relationship Specialty Start Date End Date Augustine Metz DO [address] [facility] [place] [address] PCP - General Internal Medicine 01/24/17 Rehabilitator Relationship Specialty Start Date End Date Augustine Metz DO [address] [facility] [place] [address] PCP - General Internal Medicine 01/24/17 Rehabilitator Relationship Specialty Start Date End Date Augustine Metz DO [address] [place] [address] PCP - General Internal Medicine 01/24/17 Rehabilitator Relationship Specialty Start Date End Date Augustine Metz MD [address] [place] [address] PCP - General Internal Medicine 06/02/23 Rehabilitator Relationship Specialty Start Date End Date Augustine Metz MD [address] [place] [address] PCP - General Internal Medicine 06/02/23 Team [...] January 31, 2024 End: January 31, 2024 Rehabilitator Relationship Specialty Start Date End Date Augustine Metz MD [address] [place] [address] PCP - General Internal Medicine 06/02/23 Christin Bolton MD [address] [place] [address] Referring Physician Dermatology 02/15/24 Augustine Freitas DO [address] [place] [address] Otolaryngology 02/15/24 Rehabilitator Relationship Specialty Start Date End Date Augustine Metz MD [address] [facility] [place] [address] PCP - General Internal Medicine 06/02/23 Christin Bolton MD [address] [place] [address] Referring Physician Dermatology 02/15/24 Augustine Freitas DO [address] [place] [address] Otolaryngology 02/15/24 Team Status: Active Member Role Status Dates Augustine Metz DO Primary Care Provide r, Attending Provider Active Start: June 27, 2024 Team Status: Inactive Member Role Status Dates Augustine Metz DO Primary Care Provide r, Attending Provider Active Start: July 09, 2024 End: July 09, 2024 Rehabilitator Relationship Specialty Start Date End Date Augustine Metz MD PCP - General Internal Medicine 06/02/23 Christin Bolton MD [address] [place] [address] Referring Physician Dermatology 02/15/24 Augustine Freitas DO [address] [place] [address] Otolaryngology 02/15/24 Rehabilitator Relationship Specialty Start Date End Date Augustine Metz MD PCP - General Internal Medicine 06/02/23 Christin Bolton MD [address] [place] [address] Referring Physician Dermatology 02/15/24 Augustine Freitas DO [address] [place] [address] Otolaryngology 02/15/24 Rehabilitator Relationship Specialty Start Date End Date Augustine Metz MD [address] [place] [address] PCP - General Internal Medicine 06/02/23 Christin Bolton MD [address] [place] [address] Referring Physician Dermatology 02/15/24 Augustine Freitas DO [address] [place] [address] Otolaryngology 02/15/24 Rehabilitator Relationship Specialty Start Date End Date Augustine Metz MD [address] [place] [address] PCP - General Internal Medicine 06/02/23 Christin Bolton MD [address] [place] [address] Referring Physician Dermatology 02/15/24 Augustine Freitas DO [address] [place] [address] Otolaryngology 02/15/24 Rehabilitator Relationship Specialty Start Date End Date Augustine Metz MD [address] [place] [address] PCP - General Internal Medicine 06/02/23 Christin Bolton MD [address] [place] [address] Referring Physician Dermatology 02/15/24 Augustine Freitas DO [address] [place] [address] Otolaryngology 02/15/24 Rehabilitator Relationship Specialty Start Date End Date Augustine Metz MD [address] [place] [address] PCP - General Internal Medicine 06/02/23 Christin Bolton MD [address] [place] [address] Referring Physician Dermatology 02/15/24 Augustine Freitas DO [address] [place] [address] Otolaryngology 02/15/24 Rehabilitator Relationship Specialty Start Date End Date Augustine Metz MD [address] [place] [address] PCP - General Internal Medicine 06/02/23 Christin Bolton MD [address] [place] [address] Referring Physician Dermatology 02/15/24 Augustine Freitas DO [address] [place] [address] Otolaryngology 02/15/24 Rehabilitator Relationship Specialty Start Date End Date Augustine Metz MD [address] [place] [address] PCP - General Internal Medicine 06/02/23 Christin Bolton MD [address] [place] [address] Referring Physician Dermatology 02/15/24 Augustine Freitas DO [address] [place] [address] Otolaryngology 02/15/24 Rehabilitator Relationship Specialty Start Date End Date Augustine Metz MD [address] [place] [address] PCP - General Internal Medicine 06/02/23 Christin Bolton MD [address] [place] [address] Referring Physician Dermatology 02/15/24 Augustine Freitas DO [address] [place] [address] Otolaryngology 02/15/24 Rehabilitator Relationship Specialty Start Date End Date Augustine Metz MD [address] [place] [address] PCP - General Internal Medicine 06/02/23 Christin Bolton MD [address] [place] [address] Referring Physician Dermatology 02/15/24 Augustine Freitas DO [address] [place] [address] Otolaryngology 02/15/24 Team Status: Active Member Role [...] October 10, 2024 End: October 10, 2024 Rehabilitator Relationship Specialty Start Date End Date Augustine Metz MD [address] [place] [address] PCP - General Internal Medicine 06/02/23 Christin Bolton MD [address] [place] [address] Referring Physician Dermatology 02/15/24 Augustine Freitas DO [address] [place] [address] Otolaryngology 02/15/24 Rehabilitator Relationship Specialty Start Date End Date Augustine Metz MD [address] [place] [address] PCP - General Internal Medicine 06/02/23 Christin Bolton MD [address] [place] [address] Referring Physician Dermatology 02/15/24 Augustine Freitas DO [address] [place] [address] Otolaryngology 02/15/24 Rehabilitator Relationship Specialty Start Date End Date Augustine Metz MD [address] [place] [address] PCP - General Internal Medicine 06/02/23 Christin Bolton MD [address] [place] [address] Referring Physician Dermatology 02/15/24 Augustine Freitas DO [address] [place] [address] Otolaryngology 02/15/24 Rehabilitator Relationship Specialty Start Date End Date Augustine Metz MD [address] [facility] [place] [address] PCP - General Internal Medicine 06/02/23 Christin Bolton MD [address] [place] [address] Referring Physician Dermatology 02/15/24 Augustine Freitas DO [address] [place] [address] Otolaryngology 02/15/24 Paulina Barboza OD [address] [facility] [place] [address] Referring Physician Optometry 12/28/24 Rehabilitator Relationship Specialty Start Date End Date Augustine Metz MD [address] [place] [address] PCP - General Internal Medicine 06/02/23 Christin Bolton MD [address] [place] [address] Referring Physician Dermatology 02/15/24 Augustine Freitas, DO [address] [place] [place] [address] Otolaryngology 02/15/24 Paulina Barboza OD [address] [facility], [place] [address] Referring Physician Optometry 12/28/24 Rehabilitator Relationship Specialty Start Date End Date Augustine Metz MD [address] [facility] [place] [address] PCP - General Internal Medicine 06/02/23 Christin Bolton MD [address] [place] [address] Referring Physician Dermatology 02/15/24 Augustine Freitas, DO [address] [place] [address] Otolaryngology 02/15/24 Paulina Barboza OD [address] [facility] [place] [address] Referring Physician Optometry 12/28/24 Rehabilitator Relationship Specialty Start Date End Date Augustine Metz MD [address] [facility] [place] [address] PCP - General Internal Medicine 06/02/23 Christin Bolton MD [address] [place] [address] Referring Physician Dermatology 02/15/24 Augustine Freitas DO [address] [place] [address] Otolaryngology 02/15/24 Paulina Barboza OD [address] [place] [address] Referring Physician Optometry 12/28/24 Rehabilitator Relationship Specialty Start Date End Date Augustine Metz MD [address] [place] [address] PCP - General Internal Medicine 06/02/23 Christin Bolton MD [address] [place] [address] Referring Physician Dermatology 02/15/24 Augustine Freitas, DO [address] [place] [place] [address] Otolaryngology 02/15/24 Paulina Barboza [place] [facility] [place] [address] Referring Physician Optometry 12/28/24 Scheduled Active and Recently Administ ered Medications [...] to the hypoglycemia management protocol on Ellucid: Y-SO-Vxjertevvrsu Management Protocol insulin regular (HumuLIN R;NovoLIN R) [...] 0810 (Given - Provid er: Kirsten Crawford, ROMAINE) pantoprazole (PROTONIX) tablet DR 40 mg 40 [...] if possible 175 (Given - Provider: Araseli Ron, ROMAINE) 030 (Given - Provider: Birgit Thakur, RN)1448 [...] RN)1450 ($$New Bag$$ - Provider: Pankaj Eric APRN-BARTENDER)1606 (Paused - Provider: Chino Puga, BARTENDER - Comment: Switch to gravity)1607 (Restarted - [...] Ron RN)1956 (Rate/Dose Verify - Provider: Birgit Thakur, ROMAINE)2356 (Rate/Dose Verify - Provider: Birgit Thakur RN) [...] 2 g, Intravenous, Administer over 30 Minutes, LOFT WORKER TO PROCEDURE, 1 dose, Starting on Tue03/15/22 at 0849, Until Discontinued, Other, Pre-operative antibiotic, For 15 Minutes, Pre-op/Pre-Proc 1440 (Given - Provider: Lambert Eric APRN-JESSICA) dextrose 10% IV solution 250 mL(Linked Group [...] less than 60 mg/ml. If unresponsive call LIGHTING TECHNICIAN HYDROmorphone (DILAUDID) injection 0.5 mg 0.5 [...] to the hypoglycemia management protocol on Ellucid: A-LM-Waziuhtbmznk Management Protocol
And dextrose 10% IV solution [...] less than 60 mg/ml. If unresponsive call LIGHTING TECHNICIAN
And NOTIFY PHYSICIAN, Blood Glucose LESS THAN 70 mg/dl or greater than 400 mg/dl (CANCELED) Routine, CONTINUOUS, Starting on Tue03/15/22 at 1255, Until Specified
Who to Notify: RUG DESIGNER/Physician
For all Blood Glucose LESS THAN 70 mg/dl, or greater than 400 mg/dl notify RUG DESIGNER/Physician Goals (unrecognized section and content) Goals may [...] BE BASED ON THE PRIMARY CLINICAL RECORDS. [employer] [facility]. provides no warranty or guarantee of the accuracy or completeness of information in this document."
[2025-02-12 07:56] LABS: Anion Gap 12.8; BUN Creatinine Ratio 11.9; Calcium 8.8 mg/dL (8.5-10.1); Carbon Dioxide 29.3 mmol/L (21.0-32.0); Chloride 104 mmol/L (98-107); Estimated GFR (African America 58 (>=60 mL/min/1.73m^2); Estimated GFR (Non-African Ame 48 (>=60 mL/min/1.73m^2); Glucose 143 mg/dL (74-106); Potassium 4.1 mmol/L (3.5-5.1); Sodium 142 mmol/L (136-145)
== END 2025-02-12 07:15 | disposition home or self-care (01) ==
LOC: LAB 07:17
PROVIDERS: PCP Internal Medicine; Visit Provider Family Medicine
DX: R53.1 Weakness (principal)
CPT/HCPCS: 36415; 80048

== ENCOUNTER 2025-02-22 09:31 | Outpatient (OUT) | payer MEDICARE, OTHER, SELFPAY ==
[2025-02-22 10:22] LABS: TSH W/ REFLEX FT4 12.995 uIU/mL (0.358-3.740)
[2025-02-22 11:32] LABS: Free T4 0.86 ng/dL (0.76-1.46)
== END 2025-02-22 09:32 | disposition home or self-care (01) ==
PROVIDERS: PCP Internal Medicine; Visit Provider Internal Medicine
DX: T46.2X1A Poisoning by other antidysrhythmic drugs, accidental (unintentional), initial encounter (principal); E03.2 Hypothyroidism due to medicaments and other exogenous substances
CPT/HCPCS: 36415; 84439; 84443

== ENCOUNTER 2025-05-07 07:20 | Outpatient (OUT) | payer MEDICARE, OTHER, SELFPAY ==
--- OUTSIDE RECORDS SUMMARY | 2025-05-07 07:24 | XMS_ITS | Clinical Summary ---
Author Organization [facility] Address [address] [place] [address] Care Team Providers Care Med Care Manager Name Role Phone Augustine Frost Primary Care Provider [phone] Allergies Active Allergy Reactions Criticality Noted Date Comments Iodine Anaphylaxis High 08/31/2009 Other Other 06/30/2023 Penicillins Hives High 08/01/1963 Shellfish Containing Products Other High 2008 Sulfa (Sulfonamide Antibiotics) Rash Low 02/1993 Medications aspirin 81 mg EC tablet Take 1 tablet every day by oral route. Active atorvastatin (Lipitor) 10 mg tablet Take 1 tablet by mouth in the evening. Active benazepril (Lotensin) 20 mg tablet Take 1 tablet by mouth in the morning. Active omeprazole (PriLOSEC) [address] capsule Take 1 capsule every day by oral route for 90 days. Active traZODone (Desyrel) 50 mg tablet Take 1 tablet by mouth at bedtime. Active clonazePAM (KlonoPIN) 1 mg tablet Take 1 mg by mouth in the morning. 3 Active vit A/vit C/vit E/zinc/copper (ICAPS AREDS ORAL) Take 1 chewable tablet by mouth in the morning. Active pantoprazole (ProtoNix) 40 mg EC tablet Take 40 mg by mouth. 4 Active amLODIPine (Norvasc) 10 mg tabletIndications :Primary hypertension Take 1 tablet (10 mg) by mouth in the morning. 90 tablet 3 5 01/12/20 26 Active carvedilol (Coreg) 12.5 mg tabletIndications :Essential hypertension TAKE 1 TABLET BY MOUTH EVERY MORNING WITH BREAKFAST AND TAKE ONE TABLET BY MOUTH EVERY EVENING WITH EVENING MEAL 90 tablet 3 5 02/27/20 Active Active Problems Problem Noted Date Diagnosed Date Abrasion of ear canal 07/11/2024 Anemia 07/11/2024 Chest pain 07/11/2024 CAD (coronary artery disease) 06/23/2024 Daytime hypersomnolence 06/23/2024 Hypersomnia 06/23/2024 Primary insomnia 06/23/2024 PLMD (periodic limb movement disorder) Choledocholithiasis 03/22/2024 Obesity 03/22/2024 Type 2 diabetes mellitus with hyperglycemia 02/25 Basal cell carcinoma of face 02/15/2024 Calculus of gallbladder 02/15/2024 Calculus of kidney 02/15/2024 Acute cholangitis due to chhaya culus of bile duct with obstruction 02/09/2024 02/09/2024 Presence of Amulet left atrial appendage closure device 02/09/2024 Stage 2 chronic kidney disease 01/28/2024 Age-related nuclear cataract of both eyes 202302/09/2024 Paroxysmal atrial fibrillation 10/17/2023 Pericardial effusion 10/17/2023 Benign prostatic hyperplasia with urinary obstru ction 09/06/2023 09/06/2023 Calculus of ureter 09/06/2023 09/06/2023 Diabetes mellitus 09/06/2023 09/06/2023 Family history of malignant neoplasm of skin 08/202309/06/2023 Glaucoma 09/06/2023 09/06/2023 Glycosuria 09/06/2023 09/06/2023 Proteinuria 09/06/2023 09/06/2023 Dry eyes 08/29/2023 09/06/2023 Exposure keratitis 08/29/2023 09/06/2023 Left corneal abrasion 08/29/2023 09/06/2023 Exudative age-related macular degeneration 03/1709/06/2023 Fall 01/22/2023 Subdural hematoma 2023 Pneumobilia 07/24/2022 Gastroesophageal reflux disease without esophagi tis 03/15/2022 Hyponatremia 03/15/2022 Mixed hyperlipidemia 03/15/2022 Restless leg syndrome 03/15/2022 S/P total knee arthroplasty, right 03/15/2022 Stage 3a chronic kidney disease 03/15/2022 Type 2 diabetes mellitus wit hout complication, without long-term current use of insulin 03/15/2022 Arrhythmia 02/11/2022 Hypertensive disorder 06/10/2014 Atrial fibrillation 09/17/2013 Mitral valve disorder 09/17/2013 Obstructive sleep apnea syndrome 09/17/2013 Bile duct obstruction 10/20/2012 Encounters Date Type Department Care Team Description 04/24/2025 Telephone [facility] [address] [place] [address] Delmis Mcghee MA 02/26/2025 Refill [facility] [address] [place] [address] Maggy Murphy MD Essential hypertension from Last 3 Months Family History Medical History Relation Name Comments Alcohol abuse Father Cancer Mother Heart attack Other Relation Name Status Comments Brother Alive Father Mother Other Social History Tobacco Use Types Packs/Day Years Used Date Smoking Tobacco: Former Cigarettes Smokeless Tobacco: Never Tobacco Cessation:Counseling Given: Not Answered Alcohol Use Standard Drinks/Week Comments Not Currently 0 (1 standard drink = 0.6 oz pur e alcohol) [facility] Utilities Answer Date Recorded In the past 12 months has e electric, gas, oil, or water [employer] threatened to shut off services in your home? No 01/24/2024 Humiliation, Afraid, Rape, and Kick questionnair e Answer Date Recorded Within the last year, have y ou been afraid of your partner or ex-partner? No 01/24/2024 Emotionally Abused Not on file 01/24/2024 Physically Abused Not on file 01/24/2024 Sexually Abused Not on file 01/24/2024 Overall Financial Resource Strain (CARDIA) Answe r Date Recorded How hard is it for you to pa y for the very basics like food, housing, medical care, and heating? Not hard at all 01/24/2024 Transportation Answer Date Recorded In the past 12 months, has l ack of transportation kept you from medical appointments or from getting medications? No 01/24/2024 Lack of Transportation (Non-Medical) Not on file 01/24/2024 Housing Stability Vital Sign Answer Jon e Recorded Unable to Pay for Housing in the Last Year Not o n file 01/24/2024 Number of Places Lived in the Last Year Not on f ile 01/24/2024 In the last 12 months, was t here a time when you did not have a steady place to sleep or slept in a retirement (including now)? No 01/24/2024 Hunger Vital Sign Answer Date Recorded Within the past 12 months, y ou worried that your food would run out before you got the money to buy more. Never true 01/24/20 24 Ran Out of Food in the Last Year Not on file 01/24/2024 Sex and Gender Information Value Date Recorded Sex Assigned at Male 01/24/2024 10:37 AM EDT Legal Sex Male 11:11 PM EDT Gender Identity Male 01/24/2024 10:37 AM EDT Sexual Orientation Heterosexual or Straight 12/27 10:37 AM EDT Last Filed Vital Signs Vital Sign Reading Time Taken Comments Blood Pressure 155/77 01/11/2025 9:47 AM EDT Pulse 52 01/11/2025 9:47 AM EDT Temperature 36.8 C (98.2 F) 01/29/2024 12:15 PM EDT Respiratory Rate 18 04/12/2024 2:27 PM EDT Oxygen Saturation 98% 01/11/2025 9:47 AM EDT Inhaled Oxygen Concentration - - Weight 111 kg (245 lb) 01/11/2025 9:47 AM EDT Height 182.9 cm (6') 01/11/2025 9:47 AM EDT Body Mass Index 33.23 01/11/2025 9:47 AM EDT Plan of Treatment Health Maintenance Due Date Last Done Comments Medicare Annual Wellness (AWV) 1945 Diabetes: Retinopathy Screening 01/22/1956 Depression Screening 1958 Diabetes: Urine Protein Screening 1965 Adult Tetanus 01/22/1968 Fall Risk Screening 2011 Pneumococcal Vaccine: 50+ Years (2 of 2 - PCV) 12/25/2014 12/25/2013 Diabetes: Hemoglobin A1C 04/30/2024 01/29/2024 COVID-19 Vaccine ( season) 2024 08/21/2024, 12/27/2023, 06/21/2023, Additional history exists Influenza Vaccine (#1) 2025 , 06/29/2022, 07/15/2021, Additional history exists Zoster Vaccines Completed 03/03/2023, 04/2023, 07/18/2013 HIB Vaccines Aged Out No longer eligi ble based on patient's age to complete this topic HPV Vaccines Aged Out No longer eligi ble based on patient's age to complete this topic IPV Vaccines Aged Out No longer eligi ble based on patient's age to complete this topic Meningococcal B Vaccine Aged Out No l onger eligible based on patient's age to complete this topic Meningococcal Vaccine Aged Out No georgi liv eligible based on patient's age to complete this topic Rotavirus Vaccines Aged Out No longer eligible based on patient's age to complete this topic Medical Devices Implanted Type Area Downstream Biomanufacturing Technician Device Identifier Shelf Expiration Date Model / Serial / Lot Lacho Franklin,Ww,28mm - [id number] Implanted:Qty: 1 on 01/24/2024 by Darien Crane MD at [facility] Device [employer] [id number] 06/25/2027 [id number] / / [id number] Procedures Procedure Name Priority Date/Time Associated Diagnosis Comments HEMOGLOBIN A1C Routine 01/29/2024 6:03 AM EDT from Last 3 Months or Most Recently Relevant to Health Maintenance Results * (ABNORMAL) Hemoglobin A1c (01/29/2024 6:03 AM EDT) Hemoglobin A1C 7.3(H) 4.0 - 6.0 % 01/29/2024 3:07 PM EDT [facility] Estimated Average Glucose 163 mg/dL 01/29/2024 3:07 PM EDT [facility] Blood Venous blood specimen / Unknown Arterial Line / Unknown 01/29/2024 6:03 AM EDT 01/29/2024 6:25 AM EDT Ann Humberto HEAT TREAT SUPERVISOR LAB BLOOD ORDERABLES Final Res ult [facility] [address] [place] [id number] from Last 3 Months or Most Recently Relevant to Health Maintenance Insurance [place] [address] Advance Directives * Full Code (Latest Code Status on File) Date Activated Date Inactivated Comments 01/24/2024 10:50 AM 01/29/2024 5:08 PM Care Teams Med Care Manager Relationship Specialty Start Date End Date Augustine Frost DO [address] [facility] [id number] PCP - General 07/06/22
--- OUTSIDE RECORDS SUMMARY | 2025-05-07 07:24 | XMS_ITS ---
Author Organization [facility] Address [address] [place] [address] Care Team Providers Care Envelope Cutter Name Role Phone Santosh Augustine Primary Care Provider [phone] Active Problems Problem Noted Date Diagnosed Date [...] apnea syndrome 09/17/2013 Bile duct obstruction 10/20/2012 Current Treatment and Therapy Plans No current plan information found. Past Treatment and Therapy Plans No past plan information found. Lifetime Dose Tracking * Chemical Lifetime Dose Automatic Entry Manual Entr y Fluoro Time 17 minutes 0 minutes 17 minutes Air Kerma 662.81 mGy 0 mGy 662.81 mGy
--- OUTSIDE RECORDS SUMMARY | 2025-05-07 07:24 | XMS_ITS | Encounter Summary ---
Author Organization [facility] Address [address] [place] [address] Care Team Providers Care Semi Driver Name Role Phone Augustine Frost DO Primary Care Provider [phone] Donte Montenegro MD Unavailable [phone] Augustine Freitas DO Unavailable [phone] Paulina Barboza OD Unavailable Encounter Details Date Type Department Care Team (Late st Contact Info) Description 10/17/2024 External Result Encounter [facility] External Department Unsolicited Augustine Freitas, DO [address] [place] [address] Social History Tobacco Use Types Packs/Day Years Used Date Smoking Tobacco: Former Cigarettes Alcohol Use Standard Drinks/Week Comments Never 0 (1 standard drink = 0.6 oz pur e alcohol) caffeine: soda Sex and Gender Information Value Date Recorded Sex Assigned at Not on file Legal Sex Male 6:49 PM EDT Gender Identity Not on file Sexual Orientation Not on file documented as of this encounter Plan of Treatment Upcoming Encounters Date Type Department Care Team (Late st Contact Info) Description 07/04/2025 9:10 AM EDT Office Visit [facility] [address] [facility] [address] [place] [phone] Obdulia Shah APRN-TOBI [address] [facility] [address] [place] [address] documented as of this encounter Procedures Procedure Name Priority Date/Time Associated Diagnosis Comments ECG 12-LEAD 10/17/2024 3:12 PM EST documented in this encounter Results * ECG 12 lead (10/17/2024 3:12 PM EST) 10/17/2024 3:12 PM EST Narrative [facility] - 10/17/2024 4:52 PM EST [facility] [address] [place] [id number] Electrocardiograph Report Signed Patient: Tito Goncalves MR#: [id number] : 1945 Acct:[id number] Age/Sex: 79 / M ADM Date: 10/17/24 Loc: PS Room: Type: REG CLI Attending Dr: Augustine Freitas DO Ordering [...] T waves in Lateral leads Confirmed by Darien Rubio ([id number]) on 10/17/2024 4:52:19 PM Referred By: Electronically Signed By: Darien Rubio Transcribed By: MUS Signed By Darien Rubio MD 10/17/24 3501 Procedure Note Jose Eduardo Rubio MD - 10/17/[address] [address] Electrocardiograph Report Signed Patient: Tito Goncalves RMR#: [id number] : 1945cct:[id number] Age/Sex: 79 / MADM Date: 10/17/24 Loc: PS Room:Type: REG CLI Attending Dr: Augustine Freitas DO Ordering [...] abnormality has replaced inverted T waves in Lateralleads Confirmed by Darien Rubio ([id number]) on 10/17/2024 4:52:19 PM Referred By: Electronically Signed By: Darien Rubio Transcribed By: MUS Signed By Darien Rubio MD 10/17/24 6968 us Augustine Freitas DO ECG ORDERABLES Final Resul t Performing Organization Address City/State/[facility] Co de Phone Number [facility] [address] [place] [address], documented in this encounter Visit Diagnoses Not on filedocumented in this encounter Care Teams Semi Driver Relationship Specialty Start Date End Date Augustine Frost DO PCP - General Internal Medicine 06/02/23 Donte Montenegro MD [address] [place] [address] Referring Physician Dermatology 02/15/24 Augustine Freitas DO [address] [place] [address] Otolaryngology 02/15/24 Paulina Barboza OD [address], [place] [id number] Referring Physician Optometry 12/28/24 documented as of this encounter
--- OUTSIDE RECORDS SUMMARY | 2025-05-07 07:24 | XMS_ITS | Clinical Summary ---
Author Organization [facility] Address [address] [facility], [address] [place] [address] Care Team Providers Care Needle Maker Name Role Phone Unavailable Primary Care Provider Unavailabl e Medications atorvastatin (LIPITOR) 10 MG tablet Take 1 tablet by mouth daily. 90 tablet 3 06/15/2012 Active pioglitazone-met formin (ACTOPLUS MET) 15-850 MG per tablet Tale 1 tablet daily 90 tablet 3 06/26/2012 Active Social History Tobacco Use Types Packs/Day Years Used Date Smoking Tobacco: Never Assessed Sex and Gender Information Value Date Recorded Sex Assigned at Not on file Legal Sex Male 5:51 PM EST Gender Identity Not on file Sexual Orientation Not on file Plan of Treatment Not on file
--- OUTSIDE RECORDS SUMMARY | 2025-05-07 07:24 | XMS_ITS | Clinical Summary ---
Author Organization [facility] Address [address] [place] [address] Care Team Providers Care Senior Counsel Commercial Name Role Phone Augustine Frost DO Primary Care Provider [phone] Allergies Active Allergy Reactions Criticality Noted Date Comments Iodine Swelling 10/31/2012 Mouth swelled shut Penicillin G Hives 10/20/2012 Shellfish Allergy Swelling 10/20/2012 Sulfa Antibiotics Swelling 10/20/2012 Medications amLODIPine 10 MG Tab tablet Take 1 tablet by mouth. Active benazepril 20 MG Tab Take 1 tablet by mouth daily. 8 Active atorvastatin 10 MG Tab tablet Take 1 tablet by mouth every evening. 2 Active omeprazole [address] capsule Take 1 capsule by mouth daily every morning. 8 Active warfarin 5 MG tablet 1 tablet. 8 Active aspirin EC [address] Take 1 tablet by mouth daily. Active carveDILOL 6.25 MG tablet Take 1 tablet by mouth 2 times daily. 0 Active propafenone 150 MG tablet Take by mouth every 8 hours. Active traZODone 50 MG tablet Take 1 tablet by mouth every evening at 6 PM. Active clonazePAM 1 MG tablet Take 1 tablet by mouth every evening. Active Multiple Vitamins-Minerals (PRESERVISION AREDS PO) Take by mouth. Active docusate 100 MG capsule Take 1 capsule by mouth 2 times daily. 60 capsule 2 Active therapeutic multivitamin-employee operations examiner als tablet Take 1 tablet by mouth at bedtime. 30 tablet 2 Active oxyCODONE 5 MG tabletIndications: Acute postoperative pain of right knee Take one to two tabs every 4-6 hours as needed for severe pain. Wean as tolerated 30 tablet 2 Active acetaminophen 325 MG tablet Take 2 tablets by mouth every 4 hours as needed for Mild Pain. 50 tablet 1 2 Active Active Problems Problem Noted Date Diagnosed Date S/P total knee arthroplasty, right 03/15/2022 Paroxysmal atrial fibrillation 03/15/2022 Gastroesophageal reflux disease without esophagi tis 03/15/2022 Mixed hyperlipidemia 03/15/2022 Type 2 diabetes mellitus wit hout complication, without long-term current use of insulin 03/15/2022 Stage 3a chronic kidney disease 03/15/2022 Restless leg syndrome 03/15/2022 Hyponatremia 03/15/2022 Arrhythmia 02/11/2022 Family History Medical History Relation Name Comments Diabetes Father Heart Disease - Other Father Hypertension Father Breast Cancer Mother Hypertension Mother Relation Name Status Comments Father Mother Social History Tobacco Use Types Packs/Day Years Used Date Smoking Tobacco: Former Cigarettes Q uit: 02/08/1983 Smokeless Tobacco: Former Quit: 02/08/2003 Tobacco Cessation:Counseling Given: Not Answered Alcohol Use Standard Drinks/Week Comments No 0 (1 standard drink = 0.6 oz pur e alcohol) Sex and Gender Information Value Date Recorded Sex Assigned at Not on file Legal Sex Male 3:37 PM EDT Gender Identity Male Sexual Orientation Not on file Last Filed Vital Signs Vital Sign Reading Time Taken Comments Blood Pressure 142/70 03/16/2022 11:00 AM EDT Pulse 77 03/16/2022 11:00 AM EDT Temperature 36.2 C (97.2 F) 03/16/2023 11:19 AM EDT Respiratory Rate 14 03/16/2022 11:00 AM EDT Oxygen Saturation 96% 03/16/2022 11:00 AM EDT Inhaled Oxygen Concentration - - Weight 111.1 kg (245 lb) 03/16/2023 11:19 AM EDT Height 182.9 cm (6') 03/16/2023 11:19 AM EDT Body Mass Index 33.23 03/16/2023 11:19 AM EDT Plan of Treatment Health Maintenance Due Date Last Done Comments DIABETIC FOOT EXAM 1945 EYE EXAM 1945 HEPATITIS C VIRUS SCREENING 1945 LIPIDS 1945 TETANUS 1945 URINE MICROALBUMIN TEST 1945 TDAP (ADULT) 1965 COLORECTAL CANCER SCREENING DISCUSSION 1991 PNEUMOCOCCAL VACCINE SERIES (2 of 2 - PCV) 12/25/2014 12/25/2013 RSV VACCINE (1 - 1-dose 75+ series) 2021 HBA1C TEST 08/21/2022 02/18/2022 COVID-19 VACCINE ( - season) 2024 06/22/2022, 04/17/2022, 06/22/2021, Additional history exists INFLUENZA VACCINE (#1) 2025 , 07/15/2021, 07/09/2020, Additional history exists POTASSIUM Discontinued 03/16/2022, 02/18/2022 ZOSTER (SHINGLES) VACCINE Completed 2022, 01/01/2023, 07/18/2013 HEP B VACCINE Aged Out No longer elig ible based on patient's age to complete this topic Medical Devices Implanted Type Area Head Correction Officer Device Identifier Shelf Expiration Date Model / Serial / Lot Palacos R 1 X 40 - [id number] Implanted:Qty: 2 on 03/15/2022 by Pastor Brito MD at [facility] LOC Right: Knee 05/26/2026 / / [id number] Attune Patella Medialized Dome Implanted:Qty: 1 on 03/15/2022 by Pastor Brito MD at [facility] LOC Right: Knee [employer]PU[employer] 11/23/2026 [id number] / [id number] / [id number] Attune Knee System Tibial Base Fixed Bearing Implanted:Qty: 1 on 03/15/2022 by Pastor Brito MD at [facility] RE[facility] LOC Right: Knee [employer]PU[employer] 06/25/2031 [id number] / [id number] / [id number] Attune Femoral Posterior Stabilized Implanted:Qty: 1 on 03/15/2022 by Pastor Brito MD at [facility] REV LOC Right: Knee 12/24/2030 / [id number] / [id number] Attune Tibial Insert Fixed Bearing Posterior Stabilized Implanted:Qty: 1 on 03/15/2022 by Pastor Brito MD at [facility] RE[facility] LOC Right: Knee DEPUY 11/23/2024 [id number] / / [id number] Procedures Procedure Name Priority Date/Time Associated Diagnosis Comments RENAL FUNCTION PANEL Today 03/16/2022 5:14 AM EDT HEMOGLOBIN A1C Routine 02/18/2022 12:30 PM EDT Pre-op testing from Last 3 Months or Most Recently Relevant to Health Maintenance Results * (ABNORMAL) RENAL FUNCTION PANEL (03/16/2022 5:14 AM EDT) [facility] Glucose 230(H) 70 - 100 MG/DL [address] Comment: NORMAL <100 mg/dL PREDIABETES 101-126 mg/dL DIABETES 126 mg/dL or higher BUN 22(H) 7 - 20 MG/DL [address] CREATININE SERUM 1.20 0.7 - 1.2 MG/DL [address] SODIUM 136(L) 137 - 145 MMOL/L [address] Potassium 4.5 3.5 - 5.1 MMOL/L [address] CHLORIDE 106 98 - 107 MMOL/L [address] Comment:Please note: Triglyc eride levels of 600mg/dL or higher may positively bias chloride results by approximately 2.1 mmol CARBON DIOXIDE (CO2) 23 22 - 30 MMOL/L [address] Albumin 3.3(L) 3.5 - 5.0 G/dl [address] CALCIUM 7.9(L) 8.4 - 10.2 MG/DL [address] PHOSPHORUS 2.9 2.5 - 4.5 MG/DL [address] ESTIMATED GFR, NON AMER 63 ml/min/1. 73sq.m [address] ESTIMATED GFR, 76 ml/min/1. 73sq.m [address] GFR COMMENT Average GFR for 70+ years old = 75. [address] Comment: Chronic Kidney disease, GFR = <60. Kidney failure, GFR = <15. The GFR estimate is not adjusted for extreme body surface area or acute process, nor has it been validated for women or ethnic groups other than and . Testing performed at [place], [place] [address] 03/16/2022 5:14 AM EDT 03/16/2022 5:38 AM EDT us Domenico Ferguson MD CHEMISTRY ORDERABLES Fi nal Result [address] [address] * (ABNORMAL) HEMOGLOBIN A1C (02/18/2022 12:30 PM EDT) Pathologist [facility] HEMOGLOBIN A1C 7.3(H) <6 % [address] Comment: NORMAL <5.7% PREDIABETES 5.7-6.4% DIABETES 6.5% OR HIGHER Estimated Average Glucose 163 mg/dL [address] Blood 02/18/2022 12:3 0 PM EDT 02/18/2022 12:49 PM EDT us Kirsty Lindsey PA-C HEMATOLOGY ORDERABLES Final Resu lt [address] [address] from Last 3 Months or Most Recently Relevant to Health Maintenance Insurance MEDICARE A AND B MEDICARE SUPPLEMENT Advance Directives For more information, please contact: [phone] (7:30 AM - 6PM [facility], Tuesday-Tuesday) * Full Code (Latest Code Status on File) Date Activated Date Inactivated Comments 03/15/2022 4:44 PM Care Teams Senior Counsel Commercial Relationship Specialty Start Date End Date Augustine Frost DO PCP - General Internal Medicine 01/24/17
--- OUTSIDE RECORDS SUMMARY | 2025-05-07 07:24 | XMS_ITS | Clinical Summary ---
Author Organization [facility] Address [address] [place] [address] Care Team Providers Care Nocturnist Physician Name Role Phone Augustine Frost DO Primary Care Provider [phone] Donte Montenegro MD Unavailable [phone] Augustine Freitas DO Unavailable [phone] Paulina Barboza OD Unavailable Allergies Active Allergy Reactions Criticality Noted Date Comments Iodine Anaphylaxis,Swelling High 08/31/2009 Other Reaction(s): Unknown, Unknown Mouth swelled shut Mouth swelled shut Mouth swelled shut Other Other 06/30/2023 Penicillin G Hives 10/20/2012 Other Reaction(s): Unknown, Unknown Penicillin V 01/22/2023 Penicillins Hives High 08/01/1963 Other Reaction(s): Unknown Shellfish Allergy Swelling,Other High 08/31/2009 Shellfish-Derived Products Swelling 10/20/2012 Sulfa Antibiotics Rash,Swelling Low 08/31/1993 Other Reaction(s): Unknown Medications aspirin 81 MG EC tablet Take 1 tablet by mouth in the morning. Active atorvastatin (Lipitor) 10 MG tablet Take 1 tablet by mouth in the evening. Active omeprazole (PriLOSEC) [address] capsule Take 1 capsule every day by oral route for 90 days. 2 Active propafenone (Rythmol) 150 MG tablet Take by mouth. 2 Active traZODone (Desyrel) 50 MG tablet Take 1 tablet by mouth at bedtime. 2 Active benzonatate (Tessalon) 100 MG capsule Take 100 mg by mouth 3 (three) times a day as needed 4 Active acetaminophen (Tylenol) 500 MG tablet Take by mouth every 6 (six) hours if needed 3 Active gabapentin (Neurontin) 300 MG capsule 3 Active HYDROcodone-aide taminophen ([place]) 7.5-325 MG tablet Active levETIRAcetam (Keppra) 500 MG tablet 3 Active meloxicam (Mobic) 15 MG tablet Active Multiple Vitamin (Multi Vitamin) tablet Take by mouth Active pioglitazone-me tFORMIN (ACTOPlus Met) 15-850 MG tablet Take 1 tablet by mouth in the morning. Active clopidogrel (Plavix) 75 MG tablet Take 75 mg by mouth Daily Active amiodarone (Pacerone) 200 MG tablet Take 200 mg by mouth in the morning. 4 Active amLODIPine (Norvasc) 5 MG tablet Take 5 mg by mouth Daily 4 Active carvedilol (Coreg) 6.25 MG tablet 4 Active mupirocin (Bactroban) 2 % ointment 4 Active pantoprazole (ProtoNix) 40 MG EC tablet 4 Active carvedilol (Coreg) 12.5 MG tablet 4 Active clonazePAM (KlonoPIN) 1 MG tabletIndicatio ns:PLMD (periodic limb movement disorder) 1-2 tablet at bedtime 180 tablet 5 Active clindamycin (Cleocin) 300 MG capsuleIndicati ons:Basal cell carcinoma (BCC) of dorsum of nose 1 capsule by mouth twice a day for 10 days 20 capsule 5 Active benazepril (Lotensin) 20 MG tablet 4 Active Prednisolon-Mox iflox-Bromfenac 1-0.5-0.075 % solutionIndicat ions:Age-relate d nuclear cataract of both eyes Administer 1 drop into affected eye(s) in the morning and 1 drop at noon and 1 drop in the evening and 1 drop before bedtime. 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 10/28/2023 Age-related nuclear cataract of both eyes 2023 Benign prostatic hyperplasia with urinary obstru ction 09/06/2023 Calculus of ureter 09/06/2023 Diabetes mellitus 09/06/2023 Dry eyes 08/29/2023 Arrhythmia 02/11/2022 Bile duct obstruction 10/20/2012 Resolved Problems Problem Noted Date Diagnosed Date Resolved Date Abrasion of ear canal 07/11/20242024 Anemia 07/11/2024 10/17/2024 Chest pain 07/11/2024 10/17/2024 Family history of malignant neoplasm of skin 02/15/2024 Glycosuria 02/15/2024 02/15/2024 Melanoma in situ of face 02/15/2024 Arthritis 02/15/2024 02/15/2024 Hypercholesterolemia 02/15/2024 024 Squamous cell carcinoma of forehead 02/15/2024 02/15/2024 Presence of Amulet left atri al appendage closure device 02/09/2024 02/15/2024 Stage 2 chronic kidney disease 01/28/2024 02/15/2024 Pericardial effusion (HHS-HCC) 10/17/2023 02/15/2024 Family history of malignant neoplasm of skin 02/15/2024 Glaucoma 09/06/2023 02/15/2024 Glycosuria 09/06/2023 02/15/2024 Proteinuria 09/06/2023 02/15/2024 Left corneal abrasion 08/29/20232023 Exposure keratitis 08/29/2023 Corneal abrasion 08/29/2023 10/28/2023 Exudative age-related macula r degeneration of right eye with active choroidal neovascularization 06/03/2023 06/08/2024 Exudative age-related macula r degeneration of left eye with active choroidal neovascularization 06/03/2023 06/08/2024 Exudative age-related macula r degeneration of both eyes with active choroidal neovascularization 03/17/2023 06/08/2024 Fall 01/22/2023 02/15/2024 Subdural hematoma 2023 02/15/2024 Pneumobilia 07/24/2022 02/15/2024 Gastroesophageal reflux dise ase without esophagitis 03/15/2022 02/15/2024 Restless leg syndrome 03/15/20222023 S/P total knee arthroplasty, right 03/15/2022 02/15/2024 Stage 3a chronic kidney disease 03/15/2022 02/15/2024 Hypertensive disorder 06/10/20142023 Mitral valve disorder 09/17/20132023 Overview (02/15/2024): MILD (ECHO 05/09) Obstructive sleep apnea syndrome 09/17/2013 02/15/2024 Paroxysmal atrial fibrillation 09/17/2013 02/15/2024 Overview (02/15/2024): PAF; CHADS2 SCORE 2 (HTN, DM). ON COUMADIN. Diverticulosis of colon 10/17/201201/25 Essential hypertension 10/17/201202/14 Malignant neoplasm of skin 10/17/2012 0 02/15/2024 Type 2 diabetes mellitus wit hout complication, without long-term current use of insulin 10/17/2012 02/15/2024 Immunizations Immunization Administration Dates Next Due Influenza, High Dose Seasona l, Preservative Free 07/09/2024,07/09/2020,07/25/2017,07/07 Influenza, Injectable, MDCK, preservative free 05/27/2015 Influenza, Seasonal, Quadriv alent, Adjuvanted 06/29/2022 Influenza, trivalent, adjuvanted 07/15/2021,06/26 Pneumococcal Polysaccharide PPSV23 12/25/2013 Zoster, Recombinant 03/03/2023,01/01/2023 Zoster, live 07/18/2013 Family History Medical History Relation Name Comments Coronary artery disease Father Diabetes Father Heart disease Father Aneurysm Mother Cerebral aneurysm Mother Stroke Mother Diabetes Paternal Grandmother Multiple myeloma Neg Hx Relation Name Status Comments Father Mother Paternal Grandmother Social History Tobacco Use Types Packs/Day Years Used Date Smoking Tobacco: Former Cigarettes Tobacco Cessation:Counseling Given: Not Answered Alcohol Use Standard Drinks/Week Comments Never 0 (1 standard drink = 0.6 oz pur e alcohol) caffeine: soda Sex and Gender Information Value Date Recorded Sex Assigned at Not on file Legal Sex Male 6:49 PM EDT Gender Identity Not on file Sexual Orientation Not on file Last Filed Vital Signs Vital Sign Reading Time Taken Comments Blood Pressure 140/64 10/16/2024 12:55 PM EST Pulse 62 10/03/2024 8:09 AM EST Temperature - - Respiratory Rate - - Oxygen Saturation 95% 10/03/2024 8:09 AM EST Inhaled Oxygen Concentration - - Weight 113 kg (250 lb) 01/01/2025 10:01 AM EDT Height 182.9 cm (6') 01/01/2025 10:01 AM EDT Body Mass Index 33.91 01/01/2025 10:01 AM EDT Plan of Treatment Upcoming Encounters Date Type Department Care Team (Late st Contact Info) Description 07/04/2025 9:10 AM EDT Office Visit [facility] [address] [place] [id number] Obdulia Shah, CAFE ATTENDANT-VOLUNTEER COORDINATOR [address] [place] [address] Health Maintenance Due Date Last Done Comments Pneumococcal Vaccine: 65+ Ye ars (2 of 2 - PCV) 12/25/2014 12/25/2013 Influenza Vaccine (#1) 2025 4, 06/29/2022, 07/15/2021, Additional history exists Insurance [employer] Care Teams Nocturnist Physician Relationship Specialty Start Date End Date Augustine Frost DO PCP - General Internal Medicine 06/02/23 Donte Montenegro MD [address] [place] [address] [place] [address] Referring Physician Dermatology 02/15/24 Augustine Freitas DO [address] [place] [address] Otolaryngology 02/15/24 Paulina Barboza OD [address] [place] [address] Referring Physician Optometry 12/28/24
--- OUTSIDE RECORDS SUMMARY | 2025-05-07 07:25 | XMS_ITS | Clinical Summary ---
Author Organization [facility] Address [id number] [place] [address] Care Team Providers Care Powerhouse Mechanic Helper Name Role Phone Augustine Frost James MADDEN Primary Care Provider [phone] Allergies Active Allergy Reactions Criticality Noted Date Comments Iodine 01/22/2023 Penicillin V 01/22/2023 Sulfa (Sulfonamide Antibiotics) 12/26 Medications amLODIPine (NORVASC) 10 mg tabletIndicatio ns:hypertension Take 1 tablet (10 mg total) by mouth once daily at bedtime Indications: high blood pressure. Active benazepriL (LOTENSIN) 20 mg tablet Take 1 tablet (20 mg total) by mouth in the morning. Active atorvastatin (LIPITOR) 10 mg tablet Take 1 tablet (10 mg total) by mouth once daily at bedtime. Active omeprazole (PriLOSEC) 20 mg capsule Take 1 capsule (20 mg total) by mouth every morning before breakfast. Active clonazePAM (KlonoPIN) 1 mg tablet Take 1 tablet (1 mg total) by mouth once daily at bedtime. Active carvediloL (COREG) 6.25 mg tablet Take 1 tablet (6.25 mg total) by mouth in the morning and 1 tablet (6.25 mg total) in the evening. Take with meals. Active traZODone (DESYREL) 50 mg tablet Take 1 tablet (50 mg total) by mouth nightly. Active propafenone (RYTHMOL) 150 mg tablet Take 1 tablet (150 mg total) by mouth every 8 (eight) hours. Active acetaminophen (TYLENOL EXTRA STRENGTH) 500 mg tablet Take 2 tablets (1,000 mg total) by mouth every 8 (eight) hours as needed for pain. Active Active Problems Problem Noted Date Diagnosed Date Fall, initial encounter 01/22/2023 Subdural hematoma 2023 Social History Tobacco Use Types Packs/Day Years Used Date Smoking Tobacco: Former Cigarettes Q uit: 01/04/1975 Passive Smoke Exposure: Never Smokeless Tobacco: Never Tobacco Cessation:Counseling Given: Not Answered Housing Instability Answer Date Recorde d Are you worried or concerned that in the next two months you may not have stable housing that you own, rent or stay in as a part of a household? No 01/22/2023 Hunger Screening Answer Date Recorded Within the past 12 months we worried whether our food would run out before we got money to buy more. Never True 01/22/2023 Within the past 12 months th e food we bought just didn't last and we didn't have money to get more. Never True 01/22/2023 Sex and Gender Information Value Date Recorded Sex Assigned at Male 01/22/2023 2:58 AM EDT Legal Sex Male 5:01 PM EDT Gender Identity Male 01/22/2023 2:58 AM EDT Sexual Orientation Straight 01/22/2023 2: 58 AM EDT Last Filed Vital Signs Vital Sign Reading Time Taken Comments Blood Pressure 119/75 01/22/2023 4:13 PM EDT Pulse 71 01/22/2023 4:13 PM EDT Temperature 36.6 C (97.8 F) 01/22/2023 4:13 PM EDT Respiratory Rate 16 01/22/2023 4:13 PM EDT Oxygen Saturation 94% 01/22/2023 4:13 PM EDT Inhaled Oxygen Concentration - - Weight 106.6 kg (235 lb 0.2 oz) 01/22/2023 2:50 AM EDT Height 182.9 cm (6') 01/22/2023 2:50 AM EDT Body Mass Index 31.87 01/22/2023 2:50 AM EDT Plan of Treatment Health Maintenance Due Date Last Done Comments Depression Screening 1957 Tobacco Screening 1957 DTaP,Tdap and Td Vaccines (1 - Tdap) 1965 Fall Risk Screening 2011 Zoster (Shingles) Vaccine (3 of 3) 02/26/2023 01/01/2023, 07/18/2013 COVID-19 Vaccine (6 - 2023-2 5 season) 2024 06/22/2022, 04/17/2022, 06/22/2021, Additional history exists Influenza Vaccine 05/27/2025 06/29/2022, , 07/09/2020, Additional history exists Medical Devices Not on file Insurance [employer] Advance Directives * Full Code (Latest Code Status on File) Date Activated Date Inactivated Comments 01/22/2023 2:53 AM 01/22/2023 8:59 PM Care Teams Powerhouse Mechanic Helper Relationship Specialty Start Date End Date Augustine Frost DO [address] [place] [address] PCP - General Internal Medicine 09/26/22
--- OUTSIDE RECORDS SUMMARY | 2025-05-07 07:25 | XMS_ITS | Encounter Summary ---
Author Organization [facility] Address [address] [place] [address] Care Team Providers Care Line Locator Name Role Phone Santosh Augustine Primary Care Provider [phone] Encounter Details Date Type Department Care Team (Late st Contact Info) Description 04/24/2025 Telephone [facility] [address] [place] [address] Delmis Mcghee MA Social History Tobacco Use Types Packs/Day Years Used Date Smoking Tobacco: Former Cigarettes Smokeless Tobacco: Never Alcohol Use Standard Drinks/Week Comments Not Currently 0 (1 standard drink = 0.6 oz pur e alcohol) [facility] Utilities Answer Date Recorded In the past 12 months has th e electric, gas, oil, or water company threatened to shut off services in your [...] place to sleep or slept in a residential (including now)? No 01/24/2024 Hunger Vital Sign [...] Heterosexual or Straight 12/27 10:37 AM EDT documented as of this encounter Plan of Treatment Not on file documented as of this encounter Visit Diagnoses Not on filedocumented in this encounter Care Teams Line Locator Relationship Specialty Start Date End Date Augustine Frost DO [address] [place] [phone] PCP - General 07/06/22 documented as of this encounter
--- OUTSIDE RECORDS SUMMARY | 2025-05-07 07:25 | XMS_ITS | Continuity of Care Document ---
Author Organization [facility] Address [address] [place] [address] Phone [phone] Care Team Providers Care Shaker Out Name Role Phone Rudy Kahn DO Care Team Information Wood Die Maker U suzannaailCHUY Hays M.D. Care Team Information Receiv er Unavailable Augustine Frost DO Primary Care Physician Unavail able Allergies and adverse reactions Active Allergies Criticality Reaction Severity Comments Date Penicillin Unable to assess criticality Hives Severe 06/09/2021 Sulfa Antibiotics Unable to assess criticality unknown 06/09/2021 Iodine Unable to assess criticality Anaphylaxis Severe 06/09/2021 Medications Active Medications SIG Qnty Indications Order ing Provider Date [id number] Capsules 1 by mouth three times a day 90caps Chuy Weldon M.D. 06/17/2021 Amlodipine [id number] Tablets Take 1 Tablet By Mouth Once Daily Augustine Frost DO Warfarin Iaswyx1vv Tablets Take 1 & 1 2 (One & One Half) Tablets By Mouth Once Daily Augustine Frost DO Warfarin Sodium7.5mg Tablets Take 1 Tablet By Mouth Once Daily One Day A Week Or as Directed By Clinic Augustine Frost DO Benazepril [id number] Tablets Take 1 Tablet By Mouth Once Daily Augustine Frost DO Atorvastatin Brwviqn56et Tablets Take 1 Tablet By Mouth Once Daily In The Evening Augustine Frost DO Nlqlbfsbqo6kh Tablets Take 1 To 2 Tablets By Mouth AT Bedtime Unknown Carvedilol6.25mg Tablets Take 1 Tablet By Mouth Twice Daily Augustine Frost DO Trazodone [id number] Tablets Take 1 Tablet By Mouth Every Day AT Bedtime Augustine Frost DO Mhukuxxfev99hj Capsules DR 1 by mouth every day Unknown Aspirin Adult Low Oqahnlfo78gg Tablets DR 1 by mouth every day Unknown Multi VitaminTablets take 1 tablet by mouth once daily. Unknown Propafenone [id number] Tablets take 1 tablet by mouth every 8 hours. Unknown Tylenol 500 mg 2 tabs q 8 hrs Unknown [employer] Covid-19 Dobkgiw37hws/0.3ML Suspension Unknown Glucosamine-Chondroitin Capsules 1 tab by mouth every day as needed Unknown Vital Signs Date Vital Result Comment 06/09/2021 3:41pm Weight 241.00 lb Weight 109.318 kg BP Systolic 113 mmHg BP Diastolic 61 mmHg Heart Rate 66 /min Body Temperature 98.1 F Height 72 inches 6'0 BMI (Body Mass Index) 32.7 kg/m2
--- OUTSIDE RECORDS SUMMARY | 2025-05-07 07:29 | XMS_ITS | CCD ---
Author Organization [facility] Inform ion Partnership [facility] Care Team Providers Care Programming Coordinator Name Role Phone GENE FAJARDO Admitting Unavailable GENE FAJARDO Attending Unavailable AUGUSTINE METZ Primary Care Unavailable RYAN CARDENAS Referring Unavailable Augustine Metz Primary Care Provider Augustine Metz DO Primary Care Provider [phone] Augustine Metz DO Primary Care Provider [phone] Carmen Kahn Unavailable AUGUSTINE METZ Primary Care Physician Augustine Metz DO Primary Care Provider [phone] Damari Rojas Unavailable Unavailable Alyssa, Osman Delmis [...] Unavailable Ball DO, Augustine Primary Care Provider VIRGINIE, AZUL Attending Unavailable [...] Unavailab james Song, Colin S Attending Unavailab james Metz MD, Augustine Ramirez Primary Care Provider DO Augustine Metz Primary Care Provider Murcek, DO Augustine Attending Provider [phone] Augustine Metz MD Primary Care Provider Christin Bolton MD Unavailable Augustine Freitas DO Unavailable [phone] Augustine Metz MD Primary Care Provider Augustine Metz DO Primary Care Provider Murmelisa DO, Augustine Attending Provider Zena, Augustine Admitting Unavailable Ball, Augustine Primary Care Unavailable Murcek, Augustine Attending Unavailable Murcek, Augustine Admitting Unavailable Ball, Augustine Primary Care Unavailable Murcek, Augustine Attending Unavailable Murcek, Augustine Admitting Unavailable Ball, Augustine Primary Care Unavailable Murcek, Augustine Attending Unavailable Ball, Augustine Primary Care Unavailable Murcek, Augustine Admitting Unavailable Murcek, Augustine Attending Unavailable Tamra OD, Paulina Unavailable OSMAN SHAH Attending Unavailable CHRISTIN BOLTON Attending Unavailable MURMELISA, AUGUSTINE Kelsey Attending Unavailable CHRISTIN BOLTON Referring Unavailable MURMELISA, AUGUSTINE Kelsey Attending Unavailable MURCEK, AUGUSTINE Kelsey Attending Unavailable JOSE R DODD Attending Unavailable MURCEK, AUGUSTINE W Attending Unavailable CHRISTIN BOLTON Referring Unavailable JOSE R DODD Attending Unavailable OSMAN SHAH Attending Unavailable SIMRAN MUNIZ Attending Unavailable JOSE R DODD Attending Unavailable KINGSTON COPPOLA Attending Unavailable OSMAN SHAH Attending Unavailable CHRISTIN BOLTON Attending Unavailable NIDHIK, AUGUSTINE Kelsey Attending Unavailable ZENA, AUGUSTINE Kelsey Attending Unavailable NIDHIK, AUUGSTINE Kelsey Attending Unavailable CHRISTIN BOLTON Referring Unavailable JOSE R DODD Attending Unavailable NIDHIK, AUGUSTINE Kelsey Attending Unavailable OSMAN SHAH Attending Unavailable Augustine Metz DO Primary Care Provider Augustine Freitas DO Attending Provider [phone] OLIVER CRANE Referring Unavailable RAJESH, LIONEL Referring Unavailable RAJESH, LIONEL Referring Unavailable MOUKARBEL, OLIVER Referring Unavailable MOUKARBEL, OLIVER Referring Unavailable BRIGITTE PERRY Referring Unavailab le RAJESH, LIONEL Referring Unavailable RAJESH, LIONEL Referring Unavailable MOUKARBEL, OLIVER Admitting Unavailable DORI RHODES Attending Unavailable MADISON PAUL Referring Unavailable RAJESH, LIONEL Referring Unavailable MOUKARBEL, OLIVER Referring Unavailable MOUKARBEL, OLIVER Attending Unavailable ELTAHAWBogdan, MAGGY Attending Unavailable ELMAGGY ESTRELLA Attending Unavailable MOUKARBELOLIVER Attending Unavailable MADISON PAUL Referring Unavailable MADISON PAUL Attending Unavailable Augustine Metz DO Primary Care Provider Augustine Metz DO Attending Provider [phone] Maggy Murphy Attending Provider Krzysztof Carmona DO Attending Provider Esther Larson Attending Provider Lisa Lacey CMA Attending Provider Unavaila ble Allergies Allergy Classification Reported Allergen(s) Allergy Type Date of Onset Reaction(s) Facility Iodine (and Iodine containting drugs) (1 source) Iodine Drug Allergy 04-04-20 24 Unknown Reaction [facility] Penicillins (antibiotic) (1 source) Penicillins Drug Allergy 04-04-20 24 Hives [facility] Shellfish (2 sources) Shellfish Food Allergy 04-04-20 24 Unknown Reaction [facility] Sulfonamides (antibiotic) (1 source) Sulfonamides (Antibiotic) Drug Allergy 04-04-20 24 Swelling [facility] (20 sources) Iodine; Translations: [iodine] Drug Allergy 08-31-20 09 Unknown, Unknown Reaction, Swelling of Lip/Tongue/Thr oat [facility] (15 sources) Penicillins; Translations: [PENICILLINS] Drug allergy (disorder) 08-01-19 63 Unknown Reaction, Hives [facility] (15 sources) Sulfonamides (Antibiotic); Translations: [SULFA (SULFONAMIDE ANTIBIOTICS)] Drug allergy (disorder) 08-31-19 93 Swelling [facility] (2 sources) Shellfish Containing Products; Translations: [Shellfish Containing Products] Food allergy (disorder) 08-31-20 09 [facility] (20 sources) Iodine; Translations: [iodine] Drug Allergy 08-31-20 09 Swelling, Unknown (qualifier value), [facility] Penicillin G Drug Allergy 10-20-19 13 [facility] Shellfish Propensity to adverse reactions to drug 08-31-20 09 Swelling, Other [facility] [employer] (12 sources) Sulfonamides (Antibiotic) Propensity to adverse reactions to drug 10-20-19 13 Swelling [facility] [employer] (11 sources) Penicillins (Antibiotic) Drug allergy Unknown [employer] Other (20 sources) Shrimp product Propensity to adverse reactions 01-31-20 24 Unknown, Unknown Reaction, Swelling of Lip/Tongue/Thr oat [facility] (11 sources) Sulfonamides (Antibiotic) Drug allergy Unknown [employer] Other (5 sources) Penicillin; Translations: [penicillin] Drug Allergy Unknown (qualifier value) [facility] (1 source) Sulfonamides (Antibiotic); Translations: [sulfa drugs] Drug allergy Unknown (qualifier value) [facility] (1 source) No Alert Propensity to adverse reactions to drug 09-14-20 22 [facility] (1 source) Penicillin Drug Allergy 10-01-19 [facility] (1 source) Propensity to adverse reactions to drug 10-01-19 23 [facility] (1 source) Iodine Drug Allergy 08-30-20 13 [facility] (1 source) Shellfish Drug allergy (disorder) 08-30-20 13 [facility] (4 sources) sulfADIAZINE Drug Allergy Unknown [facility] [employer] Other (20 sources) Substance with sulfonamide structure and antibacterial mechanism of action (substance) Drug allergy 08-31-19 93 Rash, Swelling [facility] [employer] Other (1 source) sulfa drug; Translations: [sulfa drug] Propensity to adverse reactions to drug (disorder) [facility] Rep[facility] (20 sources) Penicillin V Drug Allergy 01-23-20 23 [facility] (20 sources) Penicillins Drug Allergy 08-01-19 63 Hives [facility] (20 sources) Other; Translations: [OTHER] Allergy to substance 06-30-20 23 Other [facility] (20 sources) Shellfish-Derived Products Drug Allergy 10-20-19 13 Swelling [facility] (13 sources) Shellfish; Translations: [shellfish derived] Allergy to substance 01-31-20 24 Unknown Reaction, Swelling of Lip/Tongue/Thr oat [facility] (1 source) Iodine Drug Allergy 10-22-19 25 [facility] (1 source) Penicillins Drug allergy (disorder) 10-22-19 25 [facility] (1 source) Shrimp product Drug allergy (disorder) 10-22-19 25 [facility] (1 source) Sulfonamides (Antibiotic) Drug allergy (disorder) 10-22-19 25 [facility] Medications Current Medications Medication Drug [...] Active Start: 03-15-2022 take 2 tablets by [facility] four hours as needed acetaminophen 325 MG tablet Take 2 tablets by mouth every 4 hours as needed for Mild Pain. 50 tablet 1 03/15/2022 Active Start: 03-15-2022 End: 03-16-2022 take 1 tablet by mouth every six hours acetaminophen (TYLENOL) tablet 1,000 mg Start: 11-10-2021 take 2 tablets by [facility] every eight hours Acetaminophen 500 mg Tablet Active 1000 MG PO Every 8 hours November 10, 2021 1:00am Complies with drug therapy Start: 11-10-2021 take 1 tablet by [facility] four times daily as needed for pain [...] 04/27/21 Status: Ordered take 2 tablets by [facility] every eight hours Tylenol 8 Hour 650 MG 2 tablets as needed Orally every 8 hrs Active acetaminophen 325 mg / HYDROcodone bitartrate 7.5 mg oral tablet (20 sources) Opioid Agonist HYDROcodone-acet aminophen (Vernal) 7.5-325 MG tablet Active amLODIPine 5 mg oral tablet (20 sources) Dihydropyridine Calcium Channel Dominic Start : 01-11 take 2 tablets by mouth once daily at bedtime Amlodipine 5 mg tablet Active 10 MG PO Daily at bedtime January 11, 2025 12:57pm Complies with drug therapy Start: 02-28-2024 End: 01-11-2025 take 1 tablet by mouth once daily [...] Aggregation Inhibitor, Nonsteroidal Anti-inflammatory Drug Start: 10-01-2022 [id number] Medication aspirin aspirin 300 mg 10/01/2022 Active (Outside) Start: 11-10-2021 take 1 tablet by wendy [facility] once daily in the morning Aspirin (Aspirin Childrens) 81 mg tablet,chewable Active 81 MG PO Every morning November 10, 2021 1:00am On Hold: Resume on 10/24/24. Complies with drug therapy Start: 09-24-2019 aspirin Refill s(s) 0 Start [...] Daily at bedtime October 17, 2024 1:00am Complies with drug therapy Start: 07-19-2024 End: 10-17-2024 take 1 tablet [...] PO Every morning October 17, 2024 1:00am Complies with drug therapy Start: 06-24-2024 End: 10-17-2024 take 1 tablet by mouth once daily Benazepril 20 mg tablet Discontinued 0 .ROUTE .COMPLEX 90 June 24, 2024 5:56pm October 17, 2024 [...] daily 180 90 August 21, 2024 10:56am Complies with drug therapy Start: 04-04-2024 End: 08-21-2024 take 1 tablet [...] PO Twice daily October 17, 2024 1:00am Complies with drug therapy Start: 04-08-2022 End: 04-08-2023 clindamycin 150 MG [...] Start: 11-10-2021 take 2 tablets by [facility] once daily at bedtime Clonazepam 1 mg tablet Active 2 MG PO Daily at bedtime November 10, 2021 1:00am Complies with drug therapy Start: 11-10-2021 End: 10-03-2024 clonazePAM (KlonoPIN) 1 [...] 01/22/2023 Active glimepiride 1 mg oral tablet (3 sources) Sulfonylurea Start: 02-13-2025 take 0.5 mg by mouth once daily at breakfast Glimepiride 1 mg tablet Active 0.5 MG PO Every morning 45 February 13, 2025 12:00am administer with breakfast Complies with drug therapy Start: 01-11-2025 End: 02-13-2025 take 0.5 mg by mouth at mealtime Glimepiride 1 mg tabl et Discontinued 0.5 MG PO Daily January 11, 2025 12:00am February 13, 2025 11:41am Take 30 minutes prior to first meal of day Start: 09-24-2019 take 1 tablet by wendy th once daily glimepiride 1 mg Tab mg tab(s), Oral, Daily, Refills(s) 0 Start Date: 09/24/19 Status: Ordered Kzldbrgyhkx-Csvjdxgbt-Aso C- Mn (Glucosamine-Chondroitin) capsule (2 sources) Glucosamine-Jordan droit-Vit C-Mn (Glucosamine-Chondroitin) capsule Take by mouth. 0 Active levETIRAcetam 500 mg oral tablet (20 sources) Start: 2022 levETIRAcetam (Keppra) 500 M G tablet 01/22/2023 Active levothyroxine sodium 0.025 m g oral tablet (2 sources) l-Thyr oxine Start: 2024 take 1 tablet by mouth once daily Levothyroxine 25 mcg tablet Active 25 MCG PO Daily April 02, 2025 12:00am Complies with drug therapy Start: 01-11-2025 End: 01-11-2025 take 1 tablet by mouth once daily Levothyroxine 25 mcg tablet Discontinued 25 MCG PO Daily January 11, 2025 12:00am January 11, 2025 12:57pm meloxicam 15 mg oral tablet (20 sources) Nonsteroidal Anti-inflammatory Drug meloxicam (Mobic) 15 MG tablet Active metFORMIN hydrochloride 850 mg / pioglitazone 15 mg oral tablet (20 sources) Biguanide, Peroxisome Proliferator Receptor alpha Agonist, Peroxisome Proliferator Receptor gamma Agonist, Thiazolidinedione take 15-850 mg by mouth in the morning pioglitazone-met FORMIN (ACTOPlus Met) 15-850 MG tablet Take 1 tablet by mouth in the morning. Active Multi Vitamin+ (1 source) Start: 09-24-20 Multi Vitamin+ Refill(s) 0 Start Date: 09/24/19 Status: Ordered Multiple Vitamin (Multi Vitamin) tablet (20 sources) Multiple Vitamin (Multi Vitamin) tablet Take by mouth Active Multiple Vitamins-Minerals (PRESERVISION AREDS PO) (10 sources) Multiple Vitamins-Mineral s (PRESERVISION AREDS PO) Take by mouth. 0 Active Multivitamin-Minerals -Lutein (A Thru Z High Potency) tablet (13 sources) Start: 11-10-19 take 1 tablet by mouth twice daily Multivitamin-Min erals-Lutein (A Thru Z High Potency) tablet Active 1 TAB PO Twice daily November 10, 2021 1:00am Complies with drug therapy Start: 11-10-2021 take 1 tablet by wendy th twice daily Yjuvbxqqipqx-Reibjkxa-Tkwhaa (A Thru Z H igh Potency) tablet Active 1 TAB PO Twice daily November 10, 2021 12:00am Start: 11-10-2021 take 1 tablet by wendy th twice daily Ectzcucsqmhk-Azljwbsk-Covpba (A Thru Z H igh Potency) tablet Active 1 TAB PO Twice daily November 10, 2021 1:00am Start: 11-10-2021 take 1 tablet by wendy th once daily Vcothyhjdubt-Nlunilvc-Veqmhu (A Thru Z H igh Potency) tablet Active 1 TAB PO Daily November 10, 2021 1:00am mupirocin 0.02 mg/mg topical ointment (20 sources) RNA Synthetase Inhibitor Antibacterial Start: 06-04-2024 mupirocin (Bactroban ) 2 % ointment 06/04/2024 Active Start: 06-04-2024 End: 10-17-2024 Mupirocin 2 % ointment Disco ntinued 1 APPLIC TOPICAL Twice daily June 04, 2024 12:00am October 17, 2024 3:59pm Pjrfnszrfpn-Omvcngry-Fsmsivp ac 1-0.5-0.075 % solution (7 sources) Start: 12-28-2024 Zuyvlzwuxwd-Yfuvmmjq-Rynpznl ac 1-0.5-0.075 % solution Indications: Age-related nuclear cataract of both eyes Administer 1 drop into affected eye(s) in the morning and 1 drop at noon and 1 drop in the evening and 1 drop before bedtime. 10 mL 1 12/28/2024 Active primidone 250 mg oral tablet (1 source) Anti-e pilept ic Agent Start: 08-21-2022 [id number] Medication omeprazole 20 mg capsule,delayed release omeprazole 20 mg capsule,delayed release 20 mg 08/21/2022 Active (Outside) therapeutic multivitamin-minerals tablet (7 sources) Start: 03-15-2022 take 1 tablet by mouth at bedtim e therapeutic multivitamin-minerals tablet Take 1 tablet by mouth at bedtime. 30 tablet 0 03/15/2022 Active traZODone hydrochloride 50 m g oral tablet (20 sources) Seroto eliza Reupta ke Inhibi tor Start: 01-15-2025 take 1 tablet by mouth once daily at bedtim e Trazodone 50 mg tablet Active 0 .ROUTE .COMPLEX January 15, 2025 1:03pm TAKE ONE TABLET BY MOUTH EVERY NIGHT AT BEDTIME Complies with drug therapy Start: 10-17-2024 End: 01-15-2025 take 1 tablet by mouth once daily at bedtime Trazodone 50 mg tablet Discontinued 50 MG PO Daily at bedtime October 17, 2024 1:00am January 15, 2025 1:03pm Start: 01-23-2024 End: 10-17-2024 take 1 tablet [...] Drug Class(es) Dates Sig (Normalized) Sig (Original) amiodarone hydrochloride 200 mg oral tablet (20 sources) Antiarrhythmic Start: 01-31-2024 End: 02-13-2025 take 1 tablet by mouth once daily in the morning Amiodarone 200 mg tablet Discontinued 200 MG PO Every morning January 31, 2024 12:00am February 13, 2025 12:29pm benzonatate 200 mg oral capsule (20 sources) Non-narcotic Antitussive Start: 05-16-2024 End: 06-04-2024 take 1 capsule by mouth three times daily Benzonatate 200 mg capsule Discontinued 200 MG PO Three times daily 25 07May 16, 2024 12:00am June 04, 2024 11:19am Start: 11-28-2023 take 1 capsule by mo uth three times daily as needed benzonatate (Tessalon) [...] XL docusate sodium 50 mg / sennosides, detention 8.6 mg oral tablet (1 source) Start: 03-15-2022 End: 03-16-2022 senna-docusate (SENOKOT-S) 8.6-50 MG per tablet 2 tablet doxycycline hyclate 100 mg oral capsule (13 sources) Tetracycline-cla ss Drug Start: 01-31-2024 End: 02-16-2024 take 1 capsule by mouth twice daily Doxycycline Hyclate 100 mg capsule Discontinued 100 MG PO Twice daily 14 January 31, 2024 12:00am February 16, 2024 4:13pm empagliflozin 10 mg oral tablet (1 source) Sodium-Glucose Cotransporter 2 Inhibitor Start: 01-10-2025 End: 02-13-2025 take 1 tablet by mouth once daily in the morning Empagliflozin (Jardiance) 10 mg tablet Discontinued 10 MG PO Every morning 30 January 10, 2025 12:00am February 13, 2025 11:41am ferrous sulfate 325 mg oral tablet (5 [...] day for 7 days Oct, Not-Taking/PRN Molnupiravir (15 sources) Start: 05-16-2024 End: 06-04-2024 take 1 [...] 31, 2024 3:31pm 7.5mg on Sat. 5mg Q-E-Y-W-Th-F Start: 01-02-2018 warfarin 5 MG tablet 1 [...] al RV size/function, IVAN - 01/2024, 03/2024 Echo: LVEF 60%, norm al - RV size/function, IVAN - 01/2024, 03/2024,LAAO - 12/2023 Cataract (20 sources) Bilateral age-related nuclear cataracts; [...] Coronary arteriosclerosis; Translations: [Atherosclerotic heart disease of [place] coronary artery without angina pectoris] Onset: 4 [...] Long-term current use of anticoagulant; Translations: [intermediate designer (current) use of anticoagulants] Episodic Other aftercare (2 sources) custodial (current) use of anticoagulants; Translations: [FPC CURRNT USE ANTICOAGULANTS] Onset: 3 Episodic Other aftercare (5 sources) Encounter for therapeutic drug level monitoring; Translations: [ENC THERAPEUTC DRUG LEVL MONITORING] Onset: 3 Episodic Other aftercare (1 source) custodial (current) 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; Translations: [FPC CURRENT USE OF ASPIRIN] Onset: 3 Episodic Other aftercare (1 source) Other mcc (current) drug therapy; Translations: [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] Onset: 3 Episodic Other [...] conditions (not mental disorders or infectious disease) (10 sources) Coag./bleeding tests abnormal; Translations: [Abnormal coagulation [...] classified] Onset: 4 Resolved: 4 01-30-2024 Episodic Poisoning by other medications and drugs (2 sources) 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; Translations: [Poisoning by other antidysrhythmic drugs, accidental (unintentional), initial encounter] 01-11-2025 Episodic Residual codes; unclassified (20 sources) Periodic [...] encounter] Onset: 3 Resolved: 5 08-29-2023 Episodic Thyroid disorders (1 source) Hypothyroidism; Translations: [Hypothyroidism, unspecified] 04-02-2025 Chronic Unclassified (1 source) History of revision of [...] Test Name Value Interpretation Reference Range Facility Laboratory - Chemistry and C hemistry - challengeon 02-22-2025 Free T4 [Mass/Vol] 0.86 ng/dL 0.76-1.46 [facility] TSH Qn 12.995 m[IU]/L High 0.358-3.74 0 [facility] Estimated glomerular filtrat ion rate (GFR) non- Americanon 02-12-2025 GFR/1.73 sq M.predicted among non-blacks MDRD (S/P/Bld) [Vol rate/Area] 48 mL/min/{1.73_m2} Low >=60 mL/min/1.7 3m 2 [facility] Laboratory - Chemistry and C hemistry - challengeon 02-12-2025 Calcium [Mass/Vol] 8.8 mg/dL 8.5-10.1 [facility] Chloride [Moles/Vol] 104 mmol/L 98-107 [facility] CO2 [Moles/Vol] 29.3 mmol/L 21.0-32.0 [facility] Creatinine [Mass/Vol] 1.43 mg/dL High 0.70-1.30 [facility] GFR/1.73 sq M.predicted MDRD (S/P/Bld) [Vol rate/Area] 58 mL/min/{1.73_m2} Low >=60 mL/min/1.7 3m 2 [facility] Glucose [Mass/Vol] 143 mg/dL High 74-106 [facility] Potassium [Moles/Vol] 4.1 mmol/L 3.5-5.1 [facility] Sodium [Moles/Vol] 142 mmol/L 136-145 [facility] Urea nitrogen [Mass/Vol] 17.0 mg/dL 7.0-18.0 [facility] Urea nitrogen/Creatinine [Mass ratio] 11.9 mg/mg [facility] Serum or plasma anion gap de terminationon 02-12-2025 Anion gap [Moles/Vol] 12.8 mmol/L [facility] Basophils Auto (Bld) [#/Vol] on 02-07-2025 Basophils (Bld) [#/Vol] 0.0 10 3/uL 0.0-0.1 [facility] Basophils/100 WBC Auto (Bld) on 02-07-2025 Basophils/100 WBC (Bld) 0.5 % 0.2-2.0 [facility] Eosinophils/100 WBC Auto (Bl d)on 02-07-2025 Eosinophils/100 WBC (Bld) 2.7 % 0.9-7.0 [facility] Erythrocyte distribution wid th Auto (RBC) [Ratio]on 02-07-2025 Erythrocyte distribution width (RBC) [Ratio] 13.4 % 11.0-15.0 [facility] Estimated glomerular filtrat ion rate (GFR) non- Americanon 02-07-2025 GFR/1.73 sq M.predicted among non-blacks MDRD (S/P/Bld) [Vol rate/Area] 36 mL/min/{1.73_m2} Low >=60 mL/min/1.7 3m 2 [facility] Globulin Calc (S) [Mass/Vol] on 02-07-2025 Globulin (S) [Mass/Vol] 2.8 g/dL [facility] Hematocrit Auto (Bld) [Volum e fraction]on 02-07-2025 Hematocrit (Bld) [Volume fraction] 37.2 % Low 42.0-54.0 [facility] Hemoglobin [Mass/volume] in Bloodon 02-07-2025 Hemoglobin (Bld) [Mass/Vol] 12.2 g/dL Low 14.0-18.0 [facility] Laboratory - Chemistry and C hemistry - challengeon 02-07-2025 Albumin [Mass/Vol] 2.7 g/dL Low 3.4-5.0 [facility] ALP [Catalytic activity/Vol] 66 U/L 46-116 [facility] ALT [Catalytic activity/Vol] 20 U/L 16-63 [facility] AST [Catalytic activity/Vol] 16 U/L 15-37 [facility] Bilirubin [Mass/Vol] 0.7 mg/dL 0.2-1.0 [facility] Calcium [Mass/Vol] 8.6 mg/dL 8.5-10.1 [facility] Chloride [Moles/Vol] 103 mmol/L 98-107 [facility] CO2 [Moles/Vol] 29.6 mmol/L 21.0-32.0 [facility] Creatinine [Mass/Vol] 1.84 mg/dL High 0.70-1.30 [facility] GFR/1.73 sq M.predicted MDRD (S/P/Bld) [Vol rate/Area] 43 mL/min/{1.73_m2} Low >=60 mL/min/1.7 3m 2 [facility] Glucose [Mass/Vol] 91 mg/dL 74-106 [facility] Potassium [Moles/Vol] 4.0 mmol/L 3.5-5.1 [facility] Protein [Mass/Vol] 5.5 g/dL Low 6.4-8.2 [facility] Sodium [Moles/Vol] 137 mmol/L 136-145 [facility] Urea nitrogen [Mass/Vol] 25.0 mg/dL High 7.0-18.0 [facility] Urea nitrogen/Creatinine [Mass ratio] 13.6 mg/mg [facility] Laboratory - Hematology and Cell countson 02-07-2025 Immature granulocytes/100 WBC (Bld) 0.2 % 0.0-0.5 [facility] Leukocytes [#/volume] correc iván for nucleated erythrocytes in Blood by Automated counon 02-07-2025 WBC corrected for nucl RBC Auto (Bld) [#/Vol] 6.6 10 3/uL 4.0-11.0 [facility] Lymphocytes Auto (Bld) [#/Vo l]on 02-07-2025 Lymphocytes (Bld) [#/Vol] 1.6 10 3/uL 1.2-3.8 [facility] Lymphocytes/100 WBC Auto (Bl d)on 02-07-2025 Lymphocytes/100 WBC (Bld) 24.2 % 20.5-60.0 [facility] MCH Auto (RBC) [Entitic mass ]on 02-07-2025 MCH (RBC) [Entitic mass] 31.1 pg 25.9-34.0 [facility] MCHC Auto (RBC) [Mass/Vol]on 02-07-2025 MCHC (RBC) [Mass/Vol] 32.8 g/dL 29.9-35.2 [facility] MCV Auto (RBC) [Entitic vol] on 02-07-2025 MCV (RBC) [Entitic vol] 94.9 fL High 80.0-94.0 [facility] Monocytes Auto (Bld) [#/Vol] on 02-07-2025 Monocytes (Bld) [#/Vol] 0.8 10 3/uL 0.3-0.8 [facility] Monocytes/100 WBC Auto (Bld) on 02-07-2025 Monocytes/100 WBC (Bld) 12.1 % High 1.7-12.0 [facility] Neutrophils Auto (Bld) [#/Vo l]on 02-07-2025 Neutrophils (Bld) [#/Vol] 4.0 10 3/uL 1.4-6.5 [facility] Neutrophils/100 WBC Auto (Bl d)on 02-07-2025 Neutrophils/100 WBC (Bld) 60.3 % 43.0-75.0 [facility] No Panel Informationon 02-07 Eosinophils # (Auto) 0.2 10 3/uL 0.0-0.7 [facility] Immature Granulocyte # (Auto) 0.01 10 3/uL 0.00-0.03 [facility] Platelet mean volume Auto (B ld) [Entitic vol]on 02-07-2025 Platelet mean volume (Bld) [Entitic vol] 11.6 fL 9.5-13.5 [facility] Platelets Auto (Bld) [#/Vol] on 02-07-2025 Platelets (Bld) [#/Vol] 126 10 3/uL Low 150-450 [facility] RBC Auto (Bld) [#/Vol]on RBC (Bld) [#/Vol] 3.92 10 6/uL Low 4.70-6.10 [facility] Serum or plasma albumin/glob ulin mass ratioon 02-07-2025 Albumin/Globulin [Mass ratio] 1.0 {ratio} [facility] Serum or plasma anion gap de terminationon 02-07-2025 Anion gap [Moles/Vol] 8.4 mmol/L [facility] [facility] Auto (Bld) [#/Vol] on 02-06-2025 Basophils (Bld) [#/Vol] 0.0 10 3/uL 0.0-0.1 [facility] Basophils/100 WBC Auto (Bld) on 02-06-2025 Basophils/100 WBC (Bld) 0.3 % 0.2-2.0 [facility] Eosinophils/100 WBC Auto (Bl d)on 02-06-2025 Eosinophils/100 WBC (Bld) 0.0 % Low 0.9-7.0 [facility] Erythrocyte distribution wid th Auto (RBC) [Ratio]on 02-06-2025 Erythrocyte distribution width (RBC) [Ratio] 13.2 % 11.0-15.0 [facility] Estimated glomerular filtrat ion rate (GFR) non- Americanon 02-06-2025 GFR/1.73 sq M.predicted among non-blacks MDRD (S/P/Bld) [Vol rate/Area] 27 mL/min/{1.73_m2} Low >=60 mL/min/1.7 3m 2 [facility] Globulin Calc (S) [Mass/Vol] on 02-06-2025 Globulin (S) [Mass/Vol] 3.0 g/dL [facility] Hematocrit Auto (Bld) [Volum e fraction]on 02-06-2025 Hematocrit (Bld) [Volume fraction] 39.9 % Low 42.0-54.0 [facility] Hemoglobin [Mass/volume] in Bloodon 02-06-2025 Hemoglobin (Bld) [Mass/Vol] 13.5 g/dL Low 14.0-18.0 [facility] Laboratory - Chemistry and C hemistry - challengeon 02-06-2025 Bilirubin Ql (U) Negative NEGATIVE [facility] Glucose (U) [Mass/Vol] Negative [facility] Ket[facility]l ([facility] Negative NEGATIVE [facility] pH (U) 6.0 [pH] 5.0-9.0 [facility] Specific gravity (U) [Rel density] 1.010 1.005-1.02 5 [facility] Urobilinogen Qn (U) 0.2 {Jolie'U}/dL 0.2-1.0 [facility] Albumin [Mass/Vol] 3.3 g/dL Low 3.4-5.0 [facility] ALP [Catalytic activity/Vol] 80 U/L 46-116 [facility] ALT [Catalytic activity/Vol] 24 U/L 16-63 [facility] Amylase [Catalytic activity/Vol] 41 U/L 25-115 [facility] AST [Catalytic activity/Vol] 18 U/L 15-37 [facility] Bilirubin [Mass/Vol] 0.9 mg/dL 0.2-1.0 [facility] Bilirubin.direct [Mass/Vol] 0.2 mg/dL 0.0-0.2 [facility] Calcium [Mass/Vol] 8.6 mg/dL 8.5-10.1 [facility] Chloride [Moles/Vol] 102 mmol/L 98-107 [facility] CO2 [Moles/Vol] 26.9 mmol/L 21.0-32.0 [facility] Creatinine [Mass/Vol] 2.33 mg/dL High 0.70-1.30 [facility] GFR/1.73 sq M.predicted MDRD (S/P/Bld) [Vol rate/Area] 33 mL/min/{1.73_m2} Low >=60 mL/min/1.7 3m 2 [facility] Glucose [Mass/Vol] 221 mg/dL High 74-106 [facility] Lipase [Catalytic activity/Vol] 28.0 U/L 16.0-77.0 [facility] Potassium [Moles/Vol] 4.2 mmol/L 3.5-5.1 [facility] Protein [Mass/Vol] 6.3 g/dL Low 6.4-8.2 [facility] Sodium [Moles/Vol] 138 mmol/L 136-145 [facility] Urea nitrogen [Mass/Vol] 21.0 mg/dL High 7.0-18.0 [facility] Urea nitrogen/Creatinine [Mass ratio] 9.0 mg/mg [facility] - Hematology and Cell countson 02-06-2025 Immature granulocytes/100 WBC (Bld) 0.5 % 0.0-0.5 [facility] - Specimen inform ationon 02-06-2025 Appearance (U) CLEAR CLEAR [facility] Color (U) LT. YELLOW YELLOW [facility] - Urinalysison Leukocyte esterase Test strip Ql (U) Negative NEGATIVE [facility] Mucus Ql (Urine sed) NONE SEEN NONE SEEN [facility] Nitrite Ql (U) Negative NEGATIVE [facility] Protein Ql (U) Negative NEG/TRACE [facility] Leukocytes [#/volume] correc iván for nucleated erythrocytes in Blood by Automated counon 02-06-2025 WBC corrected for nucl RBC Auto (Bld) [#/Vol] 10.8 10 3/uL 4.0-11.0 [facility] Lymphocytes Auto (Bld) [#/Vo l]on 02-06-2025 Lymphocytes (Bld) [#/Vol] 1.0 10 3/uL Low 1.2-3.8 [facility] Lymphocytes/100 WBC Auto (Bl d)on 02-06-2025 Lymphocytes/100 WBC (Bld) 9.0 % Low 20.5-60.0 [facility] MCH Auto (RBC) [Entitic mass ]on 02-06-2025 MCH (RBC) [Entitic mass] 31.9 pg 25.9-34.0 [facility] MCHC Auto (RBC) [Mass/Vol]on 02-06-2025 MCHC (RBC) [Mass/Vol] 33.8 g/dL 29.9-35.2 [facility] MCV Auto (RBC) [Entitic vol] on 02-06-2025 MCV (RBC) [Entitic vol] 94.3 fL High 80.0-94.0 [facility] Monocytes Auto (Bld) [#/Vol] on 02-06-2025 Monocytes (Bld) [#/Vol] 0.7 10 3/uL 0.3-0.8 [facility] Monocytes/100 WBC Auto (Bld) on 02-06-2025 Monocytes/100 WBC (Bld) 6.8 % 1.7-12.0 [facility] Neutrophils Auto (Bld) [#/Vo l]on 02-06-2025 Neutrophils (Bld) [#/Vol] 9.0 10 3/uL High 1.4-6.5 [facility] Neutrophils/100 WBC Auto (Bl d)on 02-06-2025 Neutrophils/100 WBC (Bld) 83.4 % High 43.0-75.0 [facility] No Panel Informationon 02-06 Urine Bacteria TRACE #/HPF Abnormal NONE SEEN [facility] Urine Culture Reflexed NO [facility] Urine Occult Blood Negative NEGATIVE [facility] Urine Other Casts NONE SEEN #/LPF NONE SEEN [facility] Urine Other Crystals None Seen #/HPF None Seen [facility] Urine RBC NONE SEEN #/HPF 0-2 [facility] Urine Squamous Epithelial Cells RARE #/LPF NONE/RARE [facility] Urine WBC NONE SEEN #/HPF NONE SEEN [facility] Bedside Influenza Type A Antigen Negative [facility] Comment on above: Negative for Flu A p rotein antigen. Infection due to Flu Acannot be ruled out. Flu A antigen in the sample may bebelow the detection limit of the test. Bedside Influenza Type B Antigen Negative [facility] Comment on above: Negative for Flu B p rotein antigen. Infection due to Flu Bcannot be ruled out. Flu B antigen in the sample may bebelow the detection limit of the test. Eosinophils # (Auto) 0.0 10 3/uL 0.0-0.7 [facility] Immature Granulocyte # (Auto) 0.05 10 3/uL High 0.00-0.03 [facility] Troponin I High Sensitivity 5.5 pg/mL 4.0-76.1 [facility] Comment on above: CUT-OFF POINTS HAVE [...] mean volume Auto (B ld) [Entitic vol]on 02-06-2025 Platelet mean volume (Bld) [Entitic vol] 11.4 fL 9.5-13.5 [facility] Platelets Auto (Bld) [#/Vol] on 02-06-2025 Platelets (Bld) [#/Vol] 164 10 3/uL 150-450 [facility] RBC Auto (Bld) [#/Vol]on RBC (Bld) [#/Vol] 4.23 10 6/uL Low 4.70-6.10 [facility] Serum or plasma albumin/glob ulin mass ratioon 02-06-2025 Albumin/Globulin [Mass ratio] 1.1 {ratio} [facility] Serum or plasma anion gap de terminationon 02-06-2025 Anion gap [Moles/Vol] 13.3 mmol/[facility] Globulin Calc (S) [Mass/Vol] on 01-11-2025 Globulin (S) [Mass/Vol] 2.7 g/dL [facility] - Chemistry and C hemistry - challengeon 01-11-2025 Albumin [Mass/Vol] 3.5 g/dL 3.4-5.0 [facility] ALP [Catalytic activity/Vol] 81 U/L 46-116 [facility] ALT [Catalytic activity/Vol] 20 U/L 16-63 [facility] AST [Catalytic activity/Vol] 16 U/L 15-37 [facility] Bilirubin [Mass/Vol] 0.7 mg/dL 0.2-1.0 [facility] Bilirubin.direct [Mass/Vol] 0.2 mg/dL 0.0-0.2 [facility] Free T4 [Mass/Vol] 0.88 ng/dL 0.76-1.46 [facility] Protein [Mass/Vol] 6.2 g/dL Low 6.4-8.2 [facility] TSH Qn 15.269 m[IU]/L High 0.358-3.74 0 [facility] Office Visiton 01-11-2025 Follow-up visit [id number] Amina Goncalves 1945 M Date Provider Department Center 01/11/2025 [facility] Family History Problem Relation Age of Onset Cancer Mother Alcohol abuse Father Heart attack Other Family Status - Relation Status Age at Mother Father Brother Alive Other Level of Service:60410 [place] OFFICE/OUTPATIENT ESTABLISHED MOD MDM 30 MIN Normal [facility] Serum or plasma albumin/glob ulin mass ratioon 01-11-2025 Albumin/Globulin [Mass ratio] 1.3 {ratio} [facility] Basophils/100 WBC Manual cnt (Bld)on 01-09-2025 Basophils/100 WBC (Bld) 0.0 % Low 0.2-2.0 [facility] Eosinophils/100 WBC Manual c nt (Bld)on 01-09-2025 Eosinophils/100 WBC (Bld) 0.0 % Low 0.9-7.0 [facility] Erythrocyte distribution wid th Auto (RBC) [Ratio]on 01-09-2025 Erythrocyte distribution width (RBC) [Ratio] 12.8 % 11.0-15.0 [facility] Glucose mean value [Mass/vol ume] in Blood Estimated from glycated hemoglobinon 01-09-2025 Average glucose Estimated from glycated hemoglobin (Bld) [Mass/Vol] 186 mg/dL [facility] Hematocrit Auto (Bld) [Volum e fraction]on 01-09-2025 Hematocrit (Bld) [Volume fraction] 43.2 % 42.0-54.0 [facility] Hemoglobin A1c percentageon 01-09-2025 HbA1c (Bld) [Mass fraction] 8.1 % High 4.5-6.2 [facility] Comment on above: ADA RECOMMENDED LIMI T 4.0 - 6.0ADA THERAPEUTIC TARGET < 7.0ACTION SUGGESTED> 7.0 Hemoglobin [Mass/volume] in Bloodon 01-09-2025 Hemoglobin (Bld) [Mass/Vol] 14.5 g/dL 14.0-18.0 [facility] Laboratory - Hematology and Cell countson 01-09-2025 Lymphocytes/100 WBC (Bld) 23.0 % 20.5-60.0 [facility] Monocytes/100 WBC (Bld) 4.0 % 1.7-12.0 [facility] Leukocytes [#/volume] correc iván for nucleated erythrocytes in Blood by Automated counon 01-09-2025 WBC corrected for nucl RBC Auto (Bld) [#/Vol] 6.2 10 3/uL 4.0-11.0 [facility] MCH Auto (RBC) [Entitic mass ]on 01-09-2025 MCH (RBC) [Entitic mass] 31.3 pg 25.9-34.0 [facility] MCHC Auto (RBC) [Mass/Vol]on 01-09-2025 MCHC (RBC) [Mass/Vol] 33.6 g/dL 29.9-35.2 [facility] MCV Auto (RBC) [Entitic vol] on 01-09-2025 MCV (RBC) [Entitic vol] 93.3 fL 80.0-94.0 [facility] No Panel Informationon 01-09 Absolute Basophils (Manual) 0.00 10 3/uL 0.00-0.10 [facility] Eosinophils # (Manual) 0.00 10 3/uL 0.00-0.70 [facility] Lymphocytes # (Manual) 1.42 10 3/uL 1.20-3.80 [facility] Monocytes # (Manual) 0.24 10 3/uL Low 0.30-0.80 [facility] Reactive Lymphocytes 0.12 [facility] Reactive Lymphocytes 2.0 % [facility] Segmented Neutrophils # (Manual) 4.40 10 3/uL 1.4-6.5 [facility] Platelet mean volume Auto (B ld) [Entitic vol]on 01-09-2025 Platelet mean volume (Bld) [Entitic vol] 11.3 fL 9.5-13.5 [facility] Platelets Auto (Bld) [#/Vol] on 01-09-2025 Platelets (Bld) [#/Vol] 153 10 3/uL 150-450 [facility] RBC Auto (Bld) [#/Vol]on RBC (Bld) [#/Vol] 4.63 10 6/uL Low 4.70-6.10 [facility] Segmented neutrophils/100 WB C Manual cnt (Bld)on 01-09-2025 Segmented neutrophils/100 WBC (Bld) 71.0 % 43.0-75.0 [facility] No Panel Informationon 01-03 [facility] Ophthalmic OCT panelon 12-28 [facility] Right Eye Images reviewed and comparison made to baseline, Images reviewed. To assess optic nerve function and for use in future follow-up. Reliability: good and adequate. Left Eye Images reviewed and comparison made to baseline, Images reviewed. To assess optic nerve function and for use in future follow-up. Reliability: good and adequate. Notes Good nerve fiber layer (NFL) thickness both eyes (OU). [facility] Study observation (narrative) [facility] Optical coherence tomography study reporton 12-28-2024 [facility] Study observation (narrative) [facility] US Eye+Orbit - bilateralon 0 12-28-2024 Diagnosis: Cataract both eyes (OU) Testing Indication: Performed for preop measurements in the determination of an intraocular lens (IOL) for both eyes (OU) Test Reliability: Good quality both eyes (OU) Interpretation: Good measurements for intraocular lens (IOL) calculation purposes. Calculation made for both eyes (OU). [facility] Study observation (narrative) [facility] GLUCOSE POCT GLUCOMETERSon 0 10-22-2024 COMMEMT1 Glu2: Cleaned Meter [facility] Glucose [Mass/Vol] 157 mg/dL [facility] Comment on above: Random Glucose Refer ence Range is dependent on time and content of last meal. Glucose of more than 200 mg/dL in a nonstressed, ambulatory subject supports the diagnosis of Diabetes Mellitus. [facility] COMMEMT1 Glu2: Cleaned Meter [facility] Glucose [Mass/Vol] 164 mg/dL [facility] Comment on above: Random Glucose Refer ence Range is dependent on time and content of last meal. Glucose of more than 200 mg/dL in a nonstressed, ambulatory subject supports the diagnosis of Diabetes Mellitus. [facility] Glucose Glucometer (dC) [M ass/Vol]Ordered By: Augustine Freitas on 10-22-2024 Glucose [Mass/Vol] Capillary blood gluc ose measurement by glucometer (mass/volume) [facility] Comment on above: Random Glucose Refer ence Range is dependent on time and content of last meal. Glucose of more than 200 mg/dL in a nonstressed, ambulatory subject supports the diagnosis of Diabetes Mellitus. Glucose Poct Glucometerson 0 10-22-2024 Commemt1 Glu2: Cleaned Meter Normal [facility] Comment on above: Result Comment: PERF ORMED BY: [facility] [address] [facility] [place] [address] PATHOLOGIST [employer] CARET[employer] GUERDA ESQUIVEL M.D. Performed By: #### G LULS #### Point of Care testing , Glucose [Mass/Vol] 157 mg/dL Normal [facility] Comment on above: Result Comment: [facility] Glucose Reference Range is dependent on time and content of last meal. Glucose of more than 200 mg/dL in a nonstressed, ambulatory subject supports the diagnosis of Diabetes Mellitus. Performed By: #### G LULS #### Point of Care testing , Commemt1 Glu2: Cleaned Meter Normal [facility] Comment on above: Result Comment: PERF ORMED BY: [facility] [address] [place] [address] PATHOLOGIST [employer] CARET[employer] GUERDA ESQUIVEL M.D. Performed By: #### G LULS #### Point of Care testing , Glucose [Mass/Vol] 164 mg/dL Normal [facility] Comment on above: Result Comment: [place] Glucose Reference Range is dependent on time and content of last meal. Glucose of more than 200 mg/dL in a nonstressed, ambulatory subject supports the diagnosis of Diabetes Mellitus. Performed By: #### G NERY #### Point of Care testing , No Panel InformationOrdered By: Augustine Freitas on 10-22-2024 Bedside Glucose Comment Glu2: cleaned meter [facility] Basic Metabolic Panelon 09-27 Anion gap [Moles/Vol] 13.1 mmol/L Normal 6.0-15.0 [facility] Comment on above: Performed By: #### C BC, BMP #### [address] Calcium [Mass/Vol] 9.0 mg/dL Normal 8.6-10.3 [facility] Comment on above: Result Comment: PERF ORMED BY: [place] [address] PATHOLOGIST [employer] CARET[employer] GUERDA ESQUIVEL M.D. Performed By: #### C BC, BMP #### [address] Chloride [Moles/Vol] 103 mmol/L Normal 98-107 [facility] Comment on above: Performed By: #### C BC, BMP #### [address] CO2 [Moles/Vol] 30.3 mmol/L Normal 21.0-31.0 [facility] Comment on above: Performed By: #### C BC, BMP #### [address] Creatinine [Mass/Vol] 1.32 mg/dL High 0.70-1.30 [facility] Comment on above: Performed By: #### C BC, BMP #### [address] Estimated GFR 55.209 mL/Min Normal [facility] Comment on above: Performed By: #### C BC, BMP #### [place] [address] [place] Glucose [Mass/Vol] 175 mg/dL High 70-100 [facility] Comment on above: Result Comment: [place] Glucose Reference Range is dependent on time and content of last meal. Glucose of more than 200 mg/dL in a nonstressed, ambulatory subject supports the diagnosis of Diabetes Mellitus. ADA recommended reference range Performed By: #### C BC, BMP #### [facility] [address] [place] [address] [facility] Potassium [Moles/Vol] 4.4 mmol/L Normal 3.5-5.1 [facility] Comment on above: Performed By: #### C BC, BMP #### [facility] [address] [place] [id number] [facility] Sodium [Moles/Vol] 142 mmol/L Normal 136-145 [facility] Comment on above: Performed By: #### C BC, BMP #### [facility] [address] [place] [address] [facility] Urea nitrogen [Mass/Vol] 16 mg/dL Normal 7-25 [facility] Comment on above: Performed By: #### C BC, BMP #### [facility] [address] [place] [id number] [facility] Basic metabolic 1998 panelon 10-17-2024 Anion gap [Moles/Vol] 13.1 mmol/L 6.0 - 15.0 meq/L [facility] Calcium [Mass/Vol] 9 mg/dL 8.6 - 10. 3 mg/dL [facility] Chloride [Moles/Vol] 103 mmol/L 98 - 10 7 mmol/L [facility] CO2 [Moles/Vol] 30.3 mmol/L 21.0 - 31.0 mmol/L [facility] Creatinine (U) [Mass/Vol] 1.32 mg/dL High 0.70 - 1.30 mg/dL [facility] GFR/1.73 sq M.predicted MDRD (S/P/Bld) [Vol rate/Area] 55.209 mL/min/{1.73_m2} mL/Min [facility] Glucose [Mass/Vol] 175 mg/dL High 70 - 100 mg/dL [facility] Comment on above: Random Glucose Refer ence Range is dependent on time and content of last meal. Glucose of more than 200 mg/dL in a nonstressed, ambulatory subject supports the diagnosis of Diabetes Mellitus. ADA recommended reference range Interpretation and review of laboratory results Abnormal [facility] Potassium [Moles/Vol] 4.4 mmol/L 3.5 - 5.1 mmol/L [facility] Sodium [Moles/Vol] 142 mmol/L 136 - 145 mmol/L [facility] Urea nitrogen [Mass/Vol] 16 mg/dL 7 - 25 mg/dL [facility] Basophils Auto (Bld) [#/Vol] Ordered By: Augustine Freitas on 10-17-2024 Basophils (Bld) [#/Vol] Automated basophil count 0.0-0.2 [facility] Basophils/100 WBC Auto (Bld) Ordered By: Augustine Freitas on 10-17-2024 Basophils/100 WBC (Bld) Automated basophil % . [facility] CBC W Auto Differential pane l (Bld)on 10-17-2024 Basophils (Bld) [#/Vol] 0 10*3/uL 0.0 - 0.2 10*3/uL [facility] Basophils/100 WBC Manual cnt (Syn fld) 0.5 % . [facility] Eosinophils (Bld) [#/Vol] 0.1 10*3/uL 0.0 - 0.45 10*3/uL [facility] Eosinophils/100 WBC Manual cnt (Syn fld) 2 % . [facility] Erythrocyte distribution width (RBC) [Ratio] 14.2 % 12.0 - 14.8 % [facility] Hematocrit (Bld) [Volume fraction] 43.9 % 38.8 - 50.0 % [facility] Hemoglobin (Bld) [Mass/Vol] 14.8 g/dL 13.0 - 17.0 g/dL [facility] Lymphocytes (Bld) [#/Vol] 1.5 10*3/uL 1.00 - 4.8 10*3/uL [facility] Lymphocytes/100 WBC Manual cnt (Syn fld) 28.9 % . [facility] MCH (RBC) [Entitic mass] 31.3 pg 27.5 - 35.2 pg [facility] MCHC (RBC) [Mass/Vol] 33.6 g/dL 32.5 - 35.6 g/dL [facility] MCV (RBC) [Entitic vol] 93.1 fL 83.5 - 101 fL [facility] Monocytes (Bld) [#/Vol] 0.5 10*3/uL 0.0 - 0.8 10*3/uL [facility] Monocytes+Macrophages/ 100 WBC Manual cnt (Syn fld) 9.3 % . [facility] Neutrophils (Bld) [#/Vol] 3.2 10*3/uL 1.8 - 7.7 10*3/uL [facility] Neutrophils/100 WBC Manual cnt (Syn fld) 59.3 % . [facility] NRBC 0.1 /100{WBC} 0 - 0.5 /100{WBC} [facility] Platelet mean volume (Bld) [Entitic vol] 9.5 fL 6.6 - 10.1 fL [facility] Platelets (Bld) [#/Vol] 160 10*3/uL 150 - 450 10*3/uL [facility] RBC LM.HPF (Urine sed) [#/Area] 4.72 10*6/uL 3.90 - 5.60 10*6/uL [facility] WBC (Bld) [#/Vol] 5.3 10*3/uL 4.1 - 10.5 10*3/uL [facility] WBC LM.HPF (Urine sed) [#/Area] 5.3 10*3/uL 4.1 - 10.5 10*3/uL [facility] Calcium [Mass/volume] in Ser um or PlasmaOrdered By: Augustine Freitas on 10-17-2024 Calcium [Mass/Vol] Calcium [Mass/volume ] in Serum or Plasma 8.6-10.3 [facility] Carbon dioxide, total [Moles /volume] in Serum or PlasmaOrdered By: Augustine Freitas on 10-17-2024 CO2 [Moles/Vol] Carbon dioxide, tota l [Moles/volume] in Serum or Plasma 21.0-31.0 [facility] Chloride [Moles/volume] in S marnie or PlasmaOrdered By: Augustine Freitas on 10-17-2024 Chloride [Moles/Vol] Chloride [Moles/vol ume] in Serum or Plasma 98-107 [facility] Complete Blood Count Auto Di ffon 10-17-2024 Basophils (Bld) [#/Vol] 0.0 10*3/uL Normal 0.0-0.2 [facility] Comment on above: Result Comment: PERF ORMED BY: [place] [address] PATHOLOGIST [employer] CARETAKER GUERDA ESQUIVEL M.D. Performed By: #### C BC, BMP #### [address] Basophils/100 WBC (Bld) 0.5 % Normal . [facility] Comment on above: Performed By: #### C BC, BMP #### [place] [address] [place] Eosinophils (Bld) [#/Vol] 0.1 10*3/uL Normal 0.0-0.45 [facility] Comment on above: Performed By: #### C BC, BMP #### [address] Eosinophils/100 WBC (Bld) 2.0 % Normal . [facility] Comment on above: Performed By: #### C BC, BMP #### [address] Erythrocyte distribution width (RBC) [Ratio] 14.2 % Normal 12.0-14.8 [facility] Comment on above: Performed By: #### C BC, BMP #### [address] Hematocrit (Bld) [Volume fraction] 43.9 % Normal 38.8-50.0 [facility] Comment on above: Performed By: #### C BC, BMP #### [address] Hemoglobin (Bld) [Mass/Vol] 14.8 g/dL Normal 13.0-17.0 [facility] Comment on above: Performed By: #### C BC, BMP #### [address] Lymphocytes (Bld) [#/Vol] 1.5 10*3/uL Normal 1.00-4.8 [facility] Comment on above: Performed By: #### C BC, BMP #### [place] [address] [place] Lymphocytes/100 WBC (Bld) 28.9 % Normal . [facility] Comment on above: Performed By: #### C BC, BMP #### [address] MCH (RBC) [Entitic mass] 31.3 pg Normal 27.5-35.2 [facility] Comment on above: Performed By: #### C BC, BMP #### [address] MCV (RBC) [Entitic vol] 93.1 fL Normal 83.5-101 [facility] Comment on above: Performed By: #### C BC, BMP #### [address] Mean Corpuscular HGB Conc 33.6 g/dL Normal 32.5-35.6 [facility] Comment on above: Performed By: #### C BC, BMP #### [place] [address] [place] Monocytes (Bld) [#/Vol] 0.5 10*3/uL Normal 0.0-0.8 [facility] Comment on above: Performed By: #### C BC, BMP #### [place] [address] [place] Monocytes/100 WBC (Bld) 9.3 % Normal . [facility] Comment on above: Performed By: #### C BC, BMP #### [place] [address] [place] Neutrophils (Bld) [#/Vol] 3.2 10*3/uL Normal 1.8-7.7 [facility] Comment on above: Performed By: #### C BC, BMP #### [address] Neutrophils/100 WBC (Bld) 59.3 % Normal . [facility] Comment on above: Performed By: #### C BC, BMP #### [address] NRBC% 0.1 /100{WBC} Normal 0-0.5 [facility] Comment on above: Performed By: #### C BC, BMP #### [facility] [address] Platelet mean volume (Bld) [Entitic vol] 9.5 fL Normal 6.6-10.1 [facility] Comment on above: Performed By: #### C BC, BMP #### [address] Street Platelets (Bld) [#/Vol] 160 10*3/uL Normal 150-450 [facility] Comment on above: Performed By: #### C BC, BMP #### [address] RBC (Bld) [#/Vol] 4.72 10*6/uL Normal 3.90-5.60 [facility] Comment on above: Performed By: #### C BC, BMP #### [address] WBC (Bld) [#/Vol] 5.3 10*3/uL Normal 4.1-10.5 [facility] Comment on above: Performed By: #### C BC, BMP #### [address] Creatinine [Mass/volume] in Serum or PlasmaOrdered By: Augustine Freitas on 10-17-2024 Creatinine [Mass/Vol] Creatinine [Mass/v olume] in Serum or Plasma High 0.70-1.30 [facility] ECG 12 lead ECGon 10-17-2024 ECG 12 lead ECG [facility] Main Western [address] [place] [address] Electrocardiograph Report Signed Patient: Tito Goncalves MR#: [id number] 70 : 1945 Acct:[id number] Age/Sex: 79 / M ADM Date: 10/17/24 Loc: Room: Type: REG CLI Attending Dr: Augustine [...] in Lateral leads Confirmed by Oliver Rubio ([id number]) on 10/17/2024 4:52:19 PM Referred By: Electronically Signed By: Oliver Rubio Transcribed By: MUS Signed By Oliver Rubio MD 10/17/24 0414 Normal [facility] Eosinophils Auto (Bld) [#/Vo l]Ordered By: Augustine Freitas on 10-17-2024 Eosinophils (Bld) [#/Vol] Automated eosinophil count 0.0-0.45 [facility] Eosinophils/100 WBC Auto (Bl d)Ordered By: Augustine Freitas on 10-17-2024 Eosinophils/100 WBC (Bld) Automated eosinophil % . [facility] Erythrocyte distribution wid th Auto (RBC) [Ratio]Ordered By: Augustine Freitas on 10-17-2024 Erythrocyte distribution width (RBC) [Ratio] Erythrocyte distribution width [Ratio] by Automated count 12.0-14.8 [facility] Glucose [Mass/volume] in Ser um or PlasmaOrdered By: Augustine Freitas on 10-17-2024 Glucose [Mass/Vol] Glucose [Mass/volume ] in Serum or Plasma High 70-100 [facility] Comment on above: ADA recommended refe rence rangeRandom Glucose Reference Range is dependent on time and content of last meal. Glucose of more than 200 mg/dL in a nonstressed, ambulatory subject supports the diagnosis of Diabetes Mellitus. Hematocrit Auto (Bld) [Volum e fraction]Ordered By: Augustine Freitas on 10-17-2024 Hematocrit (Bld) [Volume fraction] Hematocrit [Volume Fraction] of Blood by Automated count 38.8-50.0 [facility] Hemoglobin [Mass/volume] in BloodOrdered By: Augustine Freitas on 10-17-2024 Hemoglobin (Bld) [Mass/Vol] Hemoglobin [Mass/volume] in Blood 13.0-17.0 [facility] Leukocytes [#/volume] correc iván for nucleated erythrocytes in Blood by Automated counOrdered By: Augustine Freitas on 10-17-2024 WBC corrected for nucl RBC Auto (Bld) [#/Vol] Leukocytes [#/volume] corrected for nucleated erythrocytes in Blood by Automated coun 4.1-10.5 [facility] Lymphocytes Auto (Bld) [#/Vo l]Ordered By: Augustine Freitas on 10-17-2024 Lymphocytes (Bld) [#/Vol] Lymphocytes [#/volume] in Blood by Automated count 1.00-4.8 [facility] Lymphocytes/100 WBC Auto (Bl d)Ordered By: Augustine Freitas on 10-17-2024 Lymphocytes/100 WBC (Bld) Lymphocytes/100 leukocytes in Blood by Automated count . [facility] MCH Auto (RBC) [Entitic mass ]Ordered By: Augustine Freitas on 10-17-2024 MCH (RBC) [Entitic mass] MCH [Entitic mass] by Automated count 27.5-35.2 [facility] MCHC Auto (RBC) [Mass/Vol]Or dered By: Augustine Freitas on 10-17-2024 MCHC (RBC) [Mass/Vol] MCHC [Mass/volume] by Automated count 32.5-35.6 [facility] MCV Auto (RBC) [Entitic vol] Ordered By: Augustine Freitas on 10-17-2024 MCV (RBC) [Entitic vol] MCV [Entitic volume] by Automated count 83.5-101 [facility] Monocytes Auto (Bld) [#/Vol] Ordered By: Augustine Freitas on 10-17-2024 Monocytes (Bld) [#/Vol] Automated blood monocyte count 0.0-0.8 [facility] Monocytes/100 WBC Auto (Bld) Ordered By: Augustine Freitas on 10-17-2024 Monocytes/100 WBC (Bld) Automated monocyte % . [facility] Neutrophils Auto (Bld) [#/Vo l]Ordered By: Augustine Freitas on 10-17-2024 Neutrophils (Bld) [#/Vol] Neutrophils [#/volume] in Blood by Automated count 1.8-7.7 [facility] Neutrophils/100 WBC Auto (Bl d)Ordered By: Augustine Freitas on 10-17-2024 Neutrophils/100 WBC (Bld) Automated neutrophil % . [facility] No Panel InformationOrdered By: Augustine Freitas on 10-17-2024 Estimated GFR (CKD-EPI) 55.209 mL/Min [facility] Creatinine Clearance (Chem N/A [facility] Nucleated erythrocytes [Pres ence] in Blood by Automated countOrdered By: Augustine Freitas on 10-17-2024 Nucleated RBC Auto Ql (Bld) Nucleated erythrocytes [Presence] in Blood by Automated count 0-0.5 [facility] Platelet mean volume Auto (B ld) [Entitic vol]Ordered By: Augustine Freitas on 10-17-2024 Platelet mean volume (Bld) [Entitic vol] Platelet mean volume [Entitic volume] in Blood by Automated count 6.6-10.1 [facility] Platelets Auto (Bld) [#/Vol] Ordered By: Augustine Freitas on 10-17-2024 Platelets (Bld) [#/Vol] Platelets [#/volume] in Blood by Automated count 150-450 [facility] Potassium [Moles/volume] in Serum or PlasmaOrdered By: Augustine Freitas on 10-17-2024 Potassium [Moles/Vol] Potassium [Moles/v olume] in Serum or Plasma 3.5-5.1 [facility] RBC Auto (Bld) [#/Vol]Ordere d By: Augustine Freitas on 10-17-2024 RBC (Bld) [#/Vol] Erythrocytes [#/volu me] in Blood by Automated count 3.90-5.60 [facility] Serum or plasma anion gap de terminationOrdered By: Augustine Freitas on 10-17-2024 Anion gap [Moles/Vol] Serum or plasma an ion gap determination 6.0-15.0 [facility] Sodium [Moles/volume] in Ser um or PlasmaOrdered By: Augustine Freitas on 10-17-2024 Sodium [Moles/Vol] Sodium [Moles/volume ] in Serum or Plasma 136-145 [facility] Urea nitrogen [Mass/volume] in Serum or PlasmaOrdered By: Augustine Freitas on 10-17-2024 Urea nitrogen [Mass/Vol] Urea nitrogen [Mass/volume] in Serum or Plasma 7-25 [facility] WBC Auto (Bld) [#/Vol]Ordere d By: Augustine Freitas on 10-17-2024 WBC (Bld) [#/Vol] Leukocytes [#/volume ] in Blood by Automated count 4.1-10.5 [facility] No Panel Informationon 10-16 Consent obtained: andre ferrer (The rationale for Mohs as well as the risks, benefits, and alternatives. The risks of infection, scarring, bleeding, prolonged wound healing, incomplete removal, allergy to anesthesia or meds, nerve injury, and recurrence were addressed.) [place] Protocol: Procedure explained and questions answered to [...] sodium bicarbonate Procedure Details: Biopsy accession number: [id number] Biopsy lab: [facility] Date of biopsy: 10/04/2024 Frozen section [...] Number of bl (more content not included)... [facility] zerved No Panel Informationon 10-04 Type of biopsy: [...] taken Amount of lidocaine used: 0.4 cc [facility] zerved No Panel InformationOrdered By: Karen Mckinnon on 10-04-2024 [facility] Optical coherence tomography study reporton 09-07-2024 [facility] Study observation (narrative) [facility] Basophils Auto (Bld) [#/Vol] on 08-14-2024 Basophils (Bld) [#/Vol] Automated basophil count 0.0-0.1 [facility] Basophils/100 WBC Auto (Bld) on 08-14-2024 Basophils/100 WBC (Bld) Automated basophil % 0.2-2.0 [facility] Eosinophils/100 WBC Auto (Bl d)on 08-14-2024 Eosinophils/100 WBC (Bld) Automated eosinophil % 0.9-7.0 [facility] Erythrocyte distribution wid th Auto (RBC) [Ratio]on 08-14-2024 Erythrocyte distribution width (RBC) [Ratio] Erythrocyte distribution width [Ratio] by Automated count High 11.0-15.0 [facility] Estimated glomerular filtrat ion rate (GFR) non- Americanon 08-14-2024 GFR/1.73 sq M.predicted among non-blacks MDRD (S/P/Bld) [Vol rate/Area] Estimated glomerular filtration rate (GFR) non- Low >=60 mL/min/1.7 3m 2 [facility] Globulin Calc (S) [Mass/Vol] on 08-14-2024 Globulin (S) [Mass/Vol] Serum globulin measurement by calculation (mass/volume) [facility] Glucose mean value [Mass/vol ume] in Blood Estimated from glycated hemoglobinon 08-14-2024 Average glucose Estimated from glycated hemoglobin (Bld) [Mass/Vol] Glucose mean value [Mass/volume] in Blood Estimated from glycated hemoglobin [facility] Hematocrit Auto (Bld) [Volum e fraction]on 08-14-2024 Hematocrit (Bld) [Volume fraction] Hematocrit [Volume Fraction] of Blood by Automated count 42.0-54.0 [facility] Hemoglobin [Mass/volume] in Bloodon 08-14-2024 Hemoglobin (Bld) [Mass/Vol] Hemoglobin [Mass/volume] in Blood 14.0-18.0 [facility] Laboratory - Chemistry and C hemistry - challengeon 08-14-2024 Albumin [Mass/Vol] 3.6 g/dL 3.4-5.0 [facility] ALP [Catalytic activity/Vol] 78 U/L 46-116 [facility] ALT [Catalytic activity/Vol] 25 U/L 16-63 [facility] AST [Catalytic activity/Vol] 16 U/L 15-37 [facility] Bilirubin [Mass/Vol] 0.7 mg/dL 0.2-1.0 [facility] Calcium [Mass/Vol] 8.8 mg/dL 8.5-10.1 [facility] Chloride [Moles/Vol] 104 mmol/L 98-107 [facility] CO2 [Moles/Vol] 28.7 mmol/L 21.0-32.0 [facility] Creatinine [Mass/Vol] 1.66 mg/dL High 0.70-1.30 [facility] GFR/1.73 sq M.predicted MDRD (S/P/Bld) [Vol rate/Area] 49 mL/min/{1.73_m2} Low >=60 mL/min/1.7 3m 2 [facility] Glucose [Mass/Vol] 143 mg/dL High 74-106 [facility] Potassium [Moles/Vol] 4.5 mmol/L 3.5-5.1 [facility] Protein [Mass/Vol] 6.7 g/dL 6.4-8.2 [facility] Sodium [Moles/Vol] 142 mmol/L 136-145 [facility] Urea nitrogen [Mass/Vol] 24.0 mg/dL High 7.0-18.0 [facility] Urea nitrogen/Creatinine [Mass ratio] 14.5 mg/mg [facility] Laboratory - Hematology and Cell countson 08-14-2024 HbA1c (Bld) [Mass fraction] 7.2 % High 4.5-6.2 [facility] Comment on above: ADA RECOMMENDED LIMI T 4.0 - 6.0ADA THERAPEUTIC TARGET < 7.0ACTION SUGGESTED> 7.0 Immature granulocytes/100 WBC (Bld) 0.0 % 0.0-0.5 [facility] Leukocytes [#/volume] correc iván for nucleated erythrocytes in Blood by Automated counon 08-14-2024 WBC corrected for nucl RBC Auto (Bld) [#/Vol] Leukocytes [#/volume] corrected for nucleated erythrocytes in Blood by Automated coun 4.0-11.0 [facility] Lymphocytes Auto (Bld) [#/Vo l]on 08-14-2024 Lymphocytes (Bld) [#/Vol] Lymphocytes [#/volume] in Blood by Automated count 1.2-3.8 [facility] Lymphocytes/100 WBC Auto (Bl d)on 08-14-2024 Lymphocytes/100 WBC (Bld) Lymphocytes/100 leukocytes in Blood by Automated count 20.5-60.0 [facility] MCH Auto (RBC) [Entitic mass ]on 08-14-2024 MCH (RBC) [Entitic mass] MCH [Entitic mass] by Automated count 25.9-34.0 [facility] MCHC Auto (RBC) [Mass/Vol]on 08-14-2024 MCHC (RBC) [Mass/Vol] MCHC [Mass/volume] by Automated count 29.9-35.2 [facility] MCV Auto (RBC) [Entitic vol] on 08-14-2024 MCV (RBC) [Entitic vol] MCV [Entitic volume] by Automated count 80.0-94.0 [facility] Microalbumin [Mass/volume] i n Urineon 08-14-2024 Albumin DL <= 20 mg/L (U) [Mass/Vol] Microalbumin [Mass/volume] in Urine <=30.0 [facility] Monocytes Auto (Bld) [#/Vol] on 08-14-2024 Monocytes (Bld) [#/Vol] Automated blood monocyte count 0.3-0.8 [facility] Monocytes/100 WBC Auto (Bld) on 08-14-2024 Monocytes/100 WBC (Bld) Automated monocyte % 1.7-12.0 [facility] Neutrophils Auto (Bld) [#/Vo l]on 08-14-2024 Neutrophils (Bld) [#/Vol] Neutrophils [#/volume] in Blood by Automated count 1.4-6.5 [facility] Neutrophils/100 WBC Auto (Bl d)on 08-14-2024 Neutrophils/100 WBC (Bld) Automated neutrophil % 43.0-75.0 [facility] No Panel Informationon 08-14 Eosinophils # (Auto) 0.1 10 3/uL 0.0-0.7 [facility] Immature Granulocyte # (Auto) 0.00 10 3/uL 0.00-0.03 [facility] Prostate Specific Antigen Screen 1.77 ng/mL <=4.00 [facility] Platelet mean volume Auto (B ld) [Entitic vol]on 08-14-2024 Platelet mean volume (Bld) [Entitic vol] Platelet mean volume [Entitic volume] in Blood by Automated count 9.5-13.5 [facility] Platelets Auto (Bld) [#/Vol] on 08-14-2024 Platelets (Bld) [#/Vol] Platelets [#/volume] in Blood by Automated count 150-450 [facility] RBC Auto (Bld) [#/Vol]on RBC (Bld) [#/Vol] Erythrocytes [#/volu me] in Blood by Automated count Low 4.70-6.10 [facility] Serum or plasma albumin/glob ulin mass ratioon 08-14-2024 Albumin/Globulin [Mass ratio] Serum or plasma albumin/globulin mass ratio [facility] Serum or plasma anion gap de terminationon 08-14-2024 Anion gap [Moles/Vol] Serum or plasma an ion gap determination [facility] Office Visiton 07-11-2024 Follow-up visit [id number] Amina Goncalves 1945 M Date Provider Department Center 07/11/2024 MAGGY LEBRON TIMO [place] Family History Problem Relation Age of Onset Cancer Mother Heart attack Other Family Status - Relation Status Age at Mother Other Level of Service:46452 [place] OFFICE/OUTPATIENT ESTABLISHED LOW MDM 20 MIN Normal [facility] Basophils Auto (Bld) [#/Vol] on 06-27-2024 Basophils (Bld) [#/Vol] 0.0 10 3/uL 0.0-0.1 [facility] Basophils/100 WBC Auto (Bld) on 06-27-2024 Basophils/100 WBC (Bld) 0.4 % 0.2-2.0 [facility] Eosinophils/100 WBC Auto (Bl d)on 06-27-2024 Eosinophils/100 WBC (Bld) 2.0 % 0.9-7.0 [facility] Erythrocyte distribution wid th Auto (RBC) [Ratio]on 06-27-2024 Erythrocyte distribution width (RBC) [Ratio] 16.6 % High 11.0-15.0 [facility] Hematocrit Auto (Bld) [Volum e fraction]on 06-27-2024 Hematocrit (Bld) [Volume fraction] 38.5 % Low 42.0-54.0 [facility] Hemoglobin [Mass/volume] in Bloodon 06-27-2024 Hemoglobin (Bld) [Mass/Vol] 12.5 g/dL Low 14.0-18.0 [facility] Iron binding capacity [Mass/ volume] in Serum or Plasmaon 06-27-2024 Iron binding capacity [Mass/Vol] 314.0 ug/dL 250.0-450. 0 [facility] Iron saturation [Mass Fracti on] in Serum or Plasmaon 06-27-2024 Iron saturation [Mass fraction] 21.3 % [facility] Laboratory - Chemistry and C hemistry - challengeon 06-27-2024 Cobalamin (Vitamin B12) [Mass/Vol] 640 pg/mL 232-1245 [facility] Comment on above: Performed at: [address] [id number] Director: Erasmo Mack PhD, Phone: [phone] Ferritin [Mass/Vol] 25.0 ng/mL Low 26.0-388.0 [facility] Iron [Mass/Vol] 67.0 ug/dL 65.0-175.0 [facility] Laboratory - Hematology and Cell countson 06-27-2024 Immature granulocytes/100 WBC (Bld) 0.4 % 0.0-0.5 [facility] Leukocytes [#/volume] correc iván for nucleated erythrocytes in Blood by Automated counon 06-27-2024 WBC corrected for nucl RBC Auto (Bld) [#/Vol] 5.0 10 3/uL 4.0-11.0 [facility] Lymphocytes Auto (Bld) [#/Vo l]on 06-27-2024 Lymphocytes (Bld) [#/Vol] 1.4 10 3/uL 1.2-3.8 [facility] Lymphocytes/100 WBC Auto (Bl d)on 06-27-2024 Lymphocytes/100 WBC (Bld) 27.8 % 20.5-60.0 [facility] MCH Auto (RBC) [Entitic mass ]on 06-27-2024 MCH (RBC) [Entitic mass] 28.8 pg 25.9-34.0 [facility] MCHC Auto (RBC) [Mass/Vol]on 06-27-2024 MCHC (RBC) [Mass/Vol] 32.5 g/dL 29.9-35.2 [facility] MCV Auto (RBC) [Entitic vol] on 06-27-2024 MCV (RBC) [Entitic vol] 88.7 fL 80.0-94.0 [facility] Monocytes Auto (Bld) [#/Vol] on 06-27-2024 Monocytes (Bld) [#/Vol] 0.4 10 3/uL 0.3-0.8 [facility] Monocytes/100 WBC Auto (Bld) on 06-27-2024 Monocytes/100 WBC (Bld) 8.3 % 1.7-12.0 [facility] Neutrophils Auto (Bld) [#/Vo l]on 06-27-2024 Neutrophils (Bld) [#/Vol] 3.1 10 3/uL 1.4-6.5 [facility] Neutrophils/100 WBC Auto (Bl d)on 06-27-2024 Neutrophils/100 WBC (Bld) 61.1 % 43.0-75.0 [facility] No Panel Informationon 06-27 Eosinophils # (Auto) 0.1 10 3/uL 0.0-0.7 [facility] Folate 22.10 ng/mL 8.60-58.90 [facility] Immature Granulocyte # (Auto) 0.02 10 3/uL 0.00-0.03 [facility] Platelet mean volume Auto (B ld) [Entitic vol]on 06-27-2024 Platelet mean volume (Bld) [Entitic vol] 11.2 fL 9.5-13.5 [facility] Platelets Auto (Bld) [#/Vol] on 06-27-2024 Platelets (Bld) [#/Vol] 162 10 3/uL 150-450 [facility] RBC Auto (Bld) [#/Vol]on RBC (Bld) [#/Vol] 4.34 10 6/uL Low 4.70-6.10 [facility] No Panel Informationon 06-19 [facility] Optical coherence tomography study reporton 06-08-2024 [facility] Study observation (narrative) [facility] Basophils Auto (Bld) [#/Vol] on 04-18-2024 Basophils (Bld) [#/Vol] 0.0 10 3/uL 0.0-0.1 [facility] Basophils/100 WBC Auto (Bld) on 04-18-2024 Basophils/100 WBC (Bld) 0.5 % 0.2-2.0 [facility] Eosinophils/100 WBC Auto (Bl d)on 04-18-2024 Eosinophils/100 WBC (Bld) 4.3 % 0.9-7.0 [facility] Erythrocyte distribution wid th Auto (RBC) [Ratio]on 04-18-2024 Erythrocyte distribution width (RBC) [Ratio] 14.0 % 11.0-15.0 [facility] Hematocrit Auto (Bld) [Volum e fraction]on 04-18-2024 Hematocrit (Bld) [Volume fraction] 36.8 % Low 42.0-54.0 [facility] Hemoglobin [Mass/volume] in Bloodon 04-18-2024 Hemoglobin (Bld) [Mass/Vol] 11.6 g/dL Low 14.0-18.0 [facility] Iron binding capacity [Mass/ volume] in Serum or Plasmaon 04-18-2024 Iron binding capacity [Mass/Vol] 339.0 ug/dL 250.0-450. 0 [facility] Iron saturation [Mass Fracti on] in Serum or Plasmaon 04-18-2024 Iron saturation [Mass fraction] 11.8 % [facility] Laboratory - Chemistry and C hemistry - challengeon 04-18-2024 Cobalamin (Vitamin B12) [Mass/Vol] 594.0 pg/mL 193.0-986. 0 [facility] Ferritin [Mass/Vol] 20.0 ng/mL Low 26.0-388.0 [facility] Iron [Mass/Vol] 40.0 ug/dL Low 65.0-175.0 [facility] - Hematology and Cell countson 04-18-2024 Immature granulocytes/100 WBC (Bld) 0.0 % 0.0-0.5 [facility] Leukocytes [#/volume] correc iván for nucleated erythrocytes in Blood by Automated counon 04-18-2024 WBC corrected for nucl RBC Auto (Bld) [#/Vol] 4.4 10 3/uL 4.0-11.0 [facility] Lymphocytes Auto (Bld) [#/Vo l]on 04-18-2024 Lymphocytes (Bld) [#/Vol] 1.5 10 3/uL 1.2-3.8 [facility] Lymphocytes/100 WBC Auto (Bl d)on 04-18-2024 Lymphocytes/100 WBC (Bld) 34.1 % 20.5-60.0 [facility] MCH Auto (RBC) [Entitic mass ]on 04-18-2024 MCH (RBC) [Entitic mass] 27.5 pg 25.9-34.0 [facility] MCHC Auto (RBC) [Mass/Vol]on 04-18-2024 MCHC (RBC) [Mass/Vol] 31.5 g/dL 29.9-35.2 [facility] MCV Auto (RBC) [Entitic vol] on 04-18-2024 MCV (RBC) [Entitic vol] 87.2 fL 80.0-94.0 [facility] Monocytes Auto (Bld) [#/Vol] on 04-18-2024 Monocytes (Bld) [#/Vol] 0.4 10 3/uL 0.3-0.8 [facility] Monocytes/100 WBC Auto (Bld) on 04-18-2024 Monocytes/100 WBC (Bld) 9.4 % 1.7-12.0 [facility] Neutrophils Auto (Bld) [#/Vo l]on 04-18-2024 Neutrophils (Bld) [#/Vol] 2.3 10 3/uL 1.4-6.5 [facility] Neutrophils/100 WBC Auto (Bl d)on 04-18-2024 Neutrophils/100 WBC (Bld) 51.7 % 43.0-75.0 [facility] No Panel Informationon 04-18 Eosinophils # (Auto) 0.2 10 3/uL 0.0-0.7 [facility] Immature Granulocyte # (Auto) 0.00 10 3/uL 0.00-0.03 [facility] Platelet mean volume Auto (B ld) [Entitic vol]on 04-18-2024 Platelet mean volume (Bld) [Entitic vol] 11.1 fL 9.5-13.5 [facility] Platelets Auto (Bld) [#/Vol] on 04-18-2024 Platelets (Bld) [#/Vol] 185 10 3/uL 150-450 [facility] RBC Auto (Bld) [#/Vol]on RBC (Bld) [#/Vol] 4.22 10 6/uL Low 4.70-6.10 [facility] Office Visiton 04-12-2024 Follow-up visit [id number] Amina Goncalves 1945 M Date Provider Department Center 04/12/2024 Daniel-MAGGY MURPHY [facility] Family History Problem Relation Age of Onset Cancer Mother Heart attack Other Family Status - Relation Status Age at Mother Other Level of Service:62440 [place] OFFICE/OUTPATIENT ESTABLISHED MOD MDM 30 MIN Normal [facility] Basophils Auto (Bld) [#/Vol] on 04-02-2024 Basophils (Bld) [#/Vol] 0.0 10 3/uL 0.0-0.1 [facility] Basophils/100 WBC Auto (Bld) on 04-02-2024 Basophils/100 WBC (Bld) 0.6 % 0.2-2.0 [facility] Eosinophils/100 WBC Auto (Bl d)on 04-02-2024 Eosinophils/100 WBC (Bld) 3.3 % 0.9-7.0 [facility] Erythrocyte distribution wid th Auto (RBC) [Ratio]on 04-02-2024 Erythrocyte distribution width (RBC) [Ratio] 13.9 % 11.0-15.0 [facility] Estimated glomerular filtrat ion rate (GFR) non- Americanon 04-02-2024 GFR/1.73 sq M.predicted among non-blacks MDRD (S/P/Bld) [Vol rate/Area] 49 mL/min/{1.73_m2} Low >=60 [facility] Globulin Calc (S) [Mass/Vol] on 04-02-2024 Globulin (S) [Mass/Vol] 3.0 g/dL [facility] Hematocrit Auto (Bld) [Volum e fraction]on 04-02-2024 Hematocrit (Bld) [Volume fraction] 32.6 % Low 42.0-54.0 [facility] Hemoglobin [Mass/volume] in Bloodon 04-02-2024 Hemoglobin (Bld) [Mass/Vol] 10.3 g/dL Low 14.0-18.0 [facility] Laboratory - Chemistry and C hemistry - challengeon 04-02-2024 Albumin [Mass/Vol] 2.8 g/dL Low 3.4-5.0 [facility] ALP [Catalytic activity/Vol] 76 U/L 46-116 [facility] ALT [Catalytic activity/Vol] 14 U/L Low 16-63 [facility] AST [Catalytic activity/Vol] 11 U/L Low 15-37 [facility] Bilirubin [Mass/Vol] 0.4 mg/dL 0.2-1.0 [facility] Calcium [Mass/Vol] 8.4 mg/dL Low 8.5-10.1 [facility] Chloride [Moles/Vol] 107 mmol/L 98-107 [facility] CO2 [Moles/Vol] 28.1 mmol/L 21.0-32.0 [facility] Creatinine [Mass/Vol] 1.40 mg/dL High 0.70-1.30 [facility] GFR/1.73 sq M.predicted MDRD (S/P/Bld) [Vol rate/Area] 59 mL/min/{1.73_m2} Low >=60 [facility] Glucose [Mass/Vol] 141 mg/dL High 74-106 [facility] Potassium [Moles/Vol] 4.3 mmol/L 3.5-5.1 [facility] Protein [Mass/Vol] 5.8 g/dL Low 6.4-8.2 [facility] Sodium [Moles/Vol] 142 mmol/L 136-145 [facility] Urea nitrogen [Mass/Vol] 16.0 mg/dL 7.0-18.0 [facility] Urea nitrogen/Creatinine [Mass ratio] 11.4 mg/mg [facility] Laboratory - Hematology and Cell countson 04-02-2024 Immature granulocytes/100 WBC (Bld) 0.2 % 0.0-0.5 [facility] Leukocytes [#/volume] correc iván for nucleated erythrocytes in Blood by Automated counon 04-02-2024 WBC corrected for nucl RBC Auto (Bld) [#/Vol] 5.2 10 3/uL 4.0-11.0 [facility] Lymphocytes Auto (Bld) [#/Vo l]on 04-02-2024 Lymphocytes (Bld) [#/Vol] 1.7 10 3/uL 1.2-3.8 [facility] Lymphocytes/100 WBC Auto (Bl d)on 04-02-2024 Lymphocytes/100 WBC (Bld) 32.6 % 20.5-60.0 [facility] MCH Auto (RBC) [Entitic mass ]on 04-02-2024 MCH (RBC) [Entitic mass] 27.8 pg 25.9-34.0 [facility] MCHC Auto (RBC) [Mass/Vol]on 04-02-2024 MCHC (RBC) [Mass/Vol] 31.6 g/dL 29.9-35.2 [facility] MCV Auto (RBC) [Entitic vol] on 04-02-2024 MCV (RBC) [Entitic vol] 87.9 fL 80.0-94.0 [facility] Monocytes Auto (Bld) [#/Vol] on 04-02-2024 Monocytes (Bld) [#/Vol] 0.7 10 3/uL 0.3-0.8 [facility] Monocytes/100 WBC Auto (Bld) on 04-02-2024 Monocytes/100 WBC (Bld) 12.9 % High 1.7-12.0 [facility] Neutrophils Auto (Bld) [#/Vo l]on 04-02-2024 Neutrophils (Bld) [#/Vol] 2.6 10 3/uL 1.4-6.5 [facility] Neutrophils/100 WBC Auto (Bl d)on 04-02-2024 Neutrophils/100 WBC (Bld) 50.4 % 43.0-75.0 [facility] No Panel Informationon 04-02 Eosinophils # (Auto) 0.2 10 3/uL 0.0-0.7 [facility] Immature Granulocyte # (Auto) 0.01 10 3/uL 0.00-0.03 [facility] Troponin I High Sensitivity 7.8 pg/mL 4.0-76.1 [facility] Comment on above: CUT-OFF POINTS HAVE [...] volume (Bld) [Entitic vol] 12.5 fL 9.5-13.5 [facility] Platelets Auto (Bld) [#/Vol] on 04-02-2024 Platelets (Bld) [#/Vol] 139 10 3/uL Low 150-450 [facility] RBC Auto (Bld) [#/Vol]on RBC (Bld) [#/Vol] 3.71 10 6/uL Low 4.70-6.10 [facility] Serum or plasma albumin/glob ulin mass ratioon 04-02-2024 Albumin/Globulin [Mass ratio] 0.9 {ratio} [facility] Serum or plasma anion gap de terminationon 04-02-2024 Anion gap [Moles/Vol] 11.2 mmol/L [facility] Basophils Auto (Bld) [#/Vol] on 04-01-2024 Basophils (Bld) [#/Vol] 0.0 10 3/uL 0.0-0.1 [facility] Basophils/100 WBC Auto (Bld) on 04-01-2024 Basophils/100 WBC (Bld) 0.2 % 0.2-2.0 [facility] Eosinophils/100 WBC Auto (Bl d)on 04-01-2024 Eosinophils/100 WBC (Bld) 1.8 % 0.9-7.0 [facility] Erythrocyte distribution wid th Auto (RBC) [Ratio]on 04-01-2024 Erythrocyte distribution width (RBC) [Ratio] 13.7 % 11.0-15.0 [facility] Estimated glomerular filtrat ion rate (GFR) non- Americanon 04-01-2024 GFR/1.73 sq M.predicted among non-blacks MDRD (S/P/Bld) [Vol rate/Area] 43 mL/min/{1.73_m2} Low >=60 [facility] Globulin Calc (S) [Mass/Vol] on 04-01-2024 Globulin (S) [Mass/Vol] 3.3 g/dL [facility] Hematocrit Auto (Bld) [Volum e fraction]on 04-01-2024 Hematocrit (Bld) [Volume fraction] 35.6 % Low 42.0-54.0 [facility] Hemoglobin [Mass/volume] in Bloodon 04-01-2024 Hemoglobin (Bld) [Mass/Vol] 11.1 g/dL Low 14.0-18.0 [facility] INR in Platelet poor plasma by Coagulation assayon 04-01-2024 INR Coag (PPP) [Relative time] 0.98 {INR} [facility] Comment on above: DESIRED INR:2.0-3.0 CONDITIONS NOT LISTED BELOW2.5-3.5 FOR PROSTHETIC HEART VALVE REPLACEMENT2.5-3.5 RECURRENT THROMBOSIS Laboratory - Chemistry and C hemistry - challengeon 04-01-2024 Albumin [Mass/Vol] 3.3 g/dL Low 3.4-5.0 [facility] ALP [Catalytic activity/Vol] 91 U/L 46-116 [facility] ALT [Catalytic activity/Vol] 19 U/L 16-63 [facility] AST [Catalytic activity/Vol] 12 U/L Low 15-37 [facility] Bilirubin [Mass/Vol] 0.4 mg/dL 0.2-1.0 [facility] Calcium [Mass/Vol] 8.5 mg/dL 8.5-10.1 [facility] Chloride [Moles/Vol] 102 mmol/L 98-107 [facility] CO2 [Moles/Vol] 26.5 mmol/L 21.0-32.0 [facility] Creatinine [Mass/Vol] 1.56 mg/dL High 0.70-1.30 [facility] GFR/1.73 sq M.predicted MDRD (S/P/Bld) [Vol rate/Area] 52 mL/min/{1.73_m2} Low >=60 [facility] Glucose [Mass/Vol] 234 mg/dL High 74-106 [facility] Natriuretic peptide B (Bld) [Mass/Vol] 284.0 pg/mL <=1800.0 [facility] Potassium [Moles/Vol] 4.2 mmol/L 3.5-5.1 [facility] Protein [Mass/Vol] 6.6 g/dL 6.4-8.2 [facility] Sodium [Moles/Vol] 138 mmol/L 136-145 [facility] Urea nitrogen [Mass/Vol] 18.0 mg/dL 7.0-18.0 [facility] Urea nitrogen/Creatinine [Mass ratio] 11.5 mg/mg [facility] Laboratory - Hematology and Cell countson 04-01-2024 Immature granulocytes/100 WBC (Bld) 0.2 % 0.0-0.5 [facility] Leukocytes [#/volume] correc iván for nucleated erythrocytes in Blood by Automated counon 04-01-2024 WBC corrected for nucl RBC Auto (Bld) [#/Vol] 6.2 10 3/uL 4.0-11.0 [facility] Lymphocytes Auto (Bld) [#/Vo l]on 04-01-2024 Lymphocytes (Bld) [#/Vol] 1.3 10 3/uL 1.2-3.8 [facility] Lymphocytes/100 WBC Auto (Bl d)on 04-01-2024 Lymphocytes/100 WBC (Bld) 20.2 % Low 20.5-60.0 [facility] MCH Auto (RBC) [Entitic mass ]on 04-01-2024 MCH (RBC) [Entitic mass] 27.5 pg 25.9-34.0 [facility] MCHC Auto (RBC) [Mass/Vol]on 04-01-2024 MCHC (RBC) [Mass/Vol] 31.2 g/dL 29.9-35.2 [facility] MCV Auto (RBC) [Entitic vol] on 04-01-2024 MCV (RBC) [Entitic vol] 88.1 fL 80.0-94.0 [facility] Monocytes Auto (Bld) [#/Vol] on 04-01-2024 Monocytes (Bld) [#/Vol] 0.6 10 3/uL 0.3-0.8 [facility] Monocytes/100 WBC Auto (Bld) on 04-01-2024 Monocytes/100 WBC (Bld) 10.2 % 1.7-12.0 [facility] Neutrophils Auto (Bld) [#/Vo l]on 04-01-2024 Neutrophils (Bld) [#/Vol] 4.2 10 3/uL 1.4-6.5 [facility] Neutrophils/100 WBC Auto (Bl d)on 04-01-2024 Neutrophils/100 WBC (Bld) 67.4 % 43.0-75.0 [facility] No Panel Informationon 04-01 Troponin I High Sensitivity 6.7 pg/mL 4.0-76.1 [facility] Comment on above: CUT-OFF POINTS HAVE [...] Eosinophils # (Auto) 0.1 10 3/uL 0.0-0.7 [facility] Immature Granulocyte # (Auto) 0.01 10 3/uL 0.00-0.03 [facility] Platelet mean volume Auto (B ld) [Entitic vol]on 04-01-2024 Platelet mean volume (Bld) [Entitic vol] 11.8 fL 9.5-13.5 [facility] Platelets Auto (Bld) [#/Vol] on 04-01-2024 Platelets (Bld) [#/Vol] 152 10 3/uL 150-450 [facility] Prothrombin time (PT)on PT Coag (PPP) [Time] 10.4 s 9.0-11.6 [facility] RBC Auto (Bld) [#/Vol]on RBC (Bld) [#/Vol] 4.04 10 6/uL Low 4.70-6.10 [facility] Serum or plasma albumin/glob ulin mass ratioon 04-01-2024 Albumin/Globulin [Mass ratio] 1.0 {ratio} [facility] Serum or plasma anion gap de terminationon 04-01-2024 Anion gap [Moles/Vol] 13.7 mmol/L [facility] Office Visiton 03-22-2024 Follow-up visit [id number] Amina Goncalves james Blackman 1945 M Date Provider Department Center 03/22/2024 OLIVER RUELAS TIMO Romano [facility] Family History Problem Relation Age of Onset Cancer Mother Heart attack Other Family Status - Relation Status Age at Mother Other Level of Service:19523 [place] OFFICE/OUTPATIENT ESTABLISHED LOW MDM 20 MIN Normal [facility] HPon 03-16-2024 History Of Present [...] a hospital admission) Transesophageal echo (JESSICA) 01/24/2024 [id number] Final Review of Systems Constitutional: Positive for [...] left atrial appendage closure per protocol. Normal [facility] NURSNOTEon 03-16-2024 NURSNOTE Bedside swallow stud y passed. Normal [facility] NURSNOTE RN educated pt on d/ c instructions. RN encouraged pt to voice any questions or concerns. Pt verbalizes no questions or concerns at this time. Normal [facility] Glucose mean value [Mass/vol ume] in Blood Estimated from glycated hemoglobinon 02-27-2024 Average glucose Estimated from glycated hemoglobin (Bld) [Mass/Vol] 160 mg/dL [facility] Laboratory - Hematology and Cell countson 02-27-2024 HbA1c (Bld) [Mass fraction] 7.2 % High 4.5-6.2 [facility] Comment on above: ADA RECOMMENDED LIMI T 4.0 - 6.0ADA THERAPEUTIC TARGET < 7.0ACTION SUGGESTED> 7.0 Capillary blood glucose winifred urement by glucometer (mass/volume)Ordered By: Augustine Freitas on 02-24-2024 Glucose [Mass/Vol] 124 mg/dL Normal [facility] Comment on above: Random Glucose Refer ence Range is dependent on time and content of last meal. Glucose of more than 200 mg/dL in a nonstressed, ambulatory subject supports the diagnosis of Diabetes Mellitus. Result Comment: [place] Glucose Reference Range is dependent on time and content of last meal. Glucose of more than 200 mg/dL in a nonstressed, ambulatory subject supports the diagnosis of Diabetes Mellitus. Performed By: #### G LULS #### Point of Care testing , Glucose Poct Glucometerson 0 02-24-2024 Commemt1 Glu2: Cleaned Meter Normal [facility] Comment on above: Result Comment: PERF ORMED BY: [facility] [address] [place] [address] PATHOLOGIST GROUNDS CARETAKER RICKY STRANGE M.D. Performed By: #### G NERY #### Point of Care testing , No Panel InformationOrdered By: Augustine Freitas on 02-24-2024 Bedside Glucose Comment Glu2: cleaned meter [facility] 36on 02-16-2024 36 There are pictures i n media Normal [facility] ECG 12 lead ECGon 02-16-2024 ECG 12 lead ECG [facility] [place] [address] Electrocardiograph Report Signed Patient: Tito Goncalves MR#: [id number] : 1945 Acct:[id number] Age/Sex: 79 / M ADM Date: 02/16/24 Loc: Room: Type: [facility] Attending Dr: Augustine Freitas DO Ordering [...] T wave abnormality Confirmed by Viviane Herman ([id number]) on 02/17/2024 12:43:51 PM Referred By: ZENA Electronically Signed By:Viviane Herman Transcribed By: MUS Signed By Viviane Herman MD 4 1243 Normal [facility] Office Visiton 02-09-2024 Follow-up visit [id number] Amina Goncalves 1945 M Date Provider Department Center 02/09/2024 Daily-[facility] Family History Problem Relation Age of Onset Cancer Mother Heart attack Other Family Status - Relation Status Age at Mother Other Level of Service:38888 MS OFFICE/OUTPATIENT ESTABLISHED LOW MDM 20 MIN Reason for Visit and Comments: Atrial Fibrillation [80] - S/p LAAO with Amulet device Normal [facility] 30on 01-29-2024 30 The patient [...] fall injury Outcome: Progressing Flowsheets (Taken 01/29/2024 3014) Free from fall injury: Assess patient frequently [...] Goal: Maintains hematologic stability Outcome: Progressing Normal [facility] BASIC METABOLIC PANELon 05-0 Anion gap [Moles/Vol] 11 mmol/L Normal 7-20 [facility] Comment on above: Performed By: #### L [id number] #### [facility] ([facility]) [address] [place] [address] Calcium [Mass/Vol] 8.0 mg/dL Low 8.6-10.3 [facility] Comment on above: Performed By: #### L [id number] #### [facility] ([facility]) [address] [place] [address] Chloride [Moles/Vol] 109 mmol/L High 98-107 [facility] Comment on above: Performed By: #### L [id number] #### [facility] ([facility]) [address] [place] [address] CO2 [Moles/Vol] 24 mmol/L Normal 21-31 [facility] Comment on above: Performed By: #### L [id number] #### [facility] ([facility]) [address] [place] [address] Creatinine [Mass/Vol] 1.17 mg/dL Normal 0.70-1.30 [facility] Comment on above: Performed By: #### L [id number] #### [facility] ([facility]) [address] [place] [address] GLOMERULAR FILTRATION RATE ML/MIN/1.73 SQ M.PREDICTED 63.8 mL/min/1.73m*2 Normal >60.0 [facility] Comment on above: Result Comment: [facility]???s estimated glomerular filtration rate (eGFR) [...] individuals. Performed By: #### L [id number] #### [facility] ([facility]) [address] [place] [address] Glucose [Mass/Vol] 125 mg/dL High 70-100 [facility] Comment on above: Performed By: #### L [id number] #### [facility] ([facility]) [address] [place] [address] Potassium [Moles/Vol] 3.6 mmol/L Normal 3.5-5.1 [facility] Comment on above: Performed By: #### L [id number] #### [facility] ([facility]) [address] [place] [address] Sodium [Moles/Vol] 140 mmol/L Normal 136-145 [facility] Comment on above: Performed By: #### L [id number] #### [facility] ([facility]) [address] [place] [address] Urea nitrogen [Mass/Vol] 22 mg/dL Normal 7-25 [facility] Comment on above: Performed By: #### L [id number] #### [facility] ([facility]) [address] [place] [address] UREA NITROGEN/CREATININE (MASS RATIO) IN SER/PLAS 18.8 Normal [facility] Comment on above: Performed By: #### L [id number] #### [facility] ([facility]) [address] [place] [address] CBCon 01-29-2024 Erythrocyte distribution width (RBC) [Ratio] 14.6 % Normal 11.5-15.0 [facility] Comment on above: Performed By: #### L [id number] #### [facility] ([facility]) [address] [place] [address] ERYTHROCYTE MEAN CORPUSCULAR HEMOGLOBIN CONCENTRATION (G/DL) BY AUTOMATED 32.8 g/dL Normal 32.0-35.0 [facility] Comment on above: Performed By: #### L [id number] #### [facility] ([facility]) [address] [place] [address] Hematocrit (Bld) [Volume fraction] 30.5 % Low 39.0-55.0 [facility] Comment on above: Performed By: #### L [id number] #### [facility] ([facility]) [address] [place] [address] Hemoglobin (Bld) [Mass/Vol] 10.0 g/dL Low 13.0-17.0 [facility] Comment on above: Performed By: #### L [id number] #### [facility] ([facility]) [address] [place] [address] MCH (RBC) [Entitic mass] 29.1 pg Normal 27.0-33.0 [facility] Comment on above: Performed By: #### L [id number] #### [facility] ([facility]) [address] [place] [address] MCV (RBC) [Entitic vol] 88.7 fL Normal 82.0-98.0 [facility] Comment on above: Performed By: #### L [id number] #### [facility] ([facility]) [address] [place] [address] PLATELETS (10*3/UL) IN BLOOD AUTOMATED COUNT 151 10*3/uL Normal 150-400 [facility] Comment on above: Performed By: #### L [id number] #### [facility] ([facility]) [address] [place] [address] RBC (Bld) [#/Vol] 3.44 10*6/uL Low 4.20-5.70 [facility] Comment on above: Performed By: #### L [id number] #### [facility] ([facility]) [address] [place] [address] WBC (Bld) [#/Vol] 6.43 10*3/uL Normal 4.00-10.60 [facility] Comment on above: Performed By: #### L [id number] #### [facility] ([facility]) [address] [place] [place] [address] HEMOGLOBIN A1Con 01-29-2024 Glucose [Mass/Vol] 163 mg/dL Normal [facility] Comment on above: Performed By: #### L [id number] #### [facility] ([facility]) [address] [place] [address] HbA1c (Bld) [Mass fraction] 7.3 % High 4.0-6.0 [facility] Comment on above: Performed By: #### L [id number] #### [facility] ([facility]) [address] [place] [place] [address] POCT GLUCOSE METER UNSOLICIT ED RESULTSon 01-29-2024 Glucose [Mass/Vol] 218 mg/dL High 70-105 [facility] Comment on above: Order Comment: Waive d Testing in the ED is performed under the ED CLIA certificate #[id number]. Result Comment: [email or web address] Performed By: #### L [id number] ####[facility] ([facility])[address] [facility] [place] [address] Glucose [Mass/Vol] 138 mg/dL High 70-105 [facility] Comment on above: Order Comment: Waive d Testing in the ED is performed under the ED CLIA certificate #[id number]. Result Comment: [email or web address] Performed By: #### L [id number] ####[facility] ([facility])[address] [place] [address] 30on 01-28-2024 30 The patient is Moder [...] and behaviors that affect risk of falls [place] fall precautions as indicated by assessment Problem: [...] Goal: Maintains hematologic stability Outcome: Progressing Normal [facility] BASIC METABOLIC PANELon 05-0 Anion gap [Moles/Vol] 12 mmol/L Normal 7-20 [facility] Comment on above: Performed By: #### L [id number] ####[facility] ([facility])[address] [place] [address] Calcium [Mass/Vol] 7.7 mg/dL Low 8.6-10.3 [facility] Comment on above: Performed By: #### L [id number] ####[facility] ([facility])[address] [place] [address] Chloride [Moles/Vol] 108 mmol/L High 98-107 [facility] Comment on above: Performed By: #### L [id number] ####[facility] ([facility])[address] [place] [address] CO2 [Moles/Vol] 21 mmol/L Normal 21-31 [facility] Comment on above: Performed By: #### L [id number] ####[facility] ([facility])[address] [place] [address] Creatinine [Mass/Vol] 1.16 mg/dL Normal 0.70-1.30 [facility] Comment on above: Performed By: #### L [id number] ####[facility] ([facility])[address] [place] [address] GLOMERULAR FILTRATION RATE ML/MIN/1.73 SQ M.PREDICTED 64.5 mL/min/1.73m*2 Normal >60.0 [facility] Comment on above: Result Comment: [facility]???s estimated glomerular filtration rate (eGFR) [...] AB15 ####[facility] ([facility])[address] [place] [address] Glucose [Mass/Vol] 143 mg/dL High 70-100 [facility] Comment on above: Performed By: #### L [id number] ####[facility] ([facility])[address] [place] [address] Potassium [Moles/Vol] 3.3 mmol/L Low 3.5-5.1 [facility] Comment on above: Performed By: #### L [id number] ####[facility] ([facility])[address] [place] [address] Sodium [Moles/Vol] 138 mmol/L Normal 136-145 [facility] Comment on above: Performed By: #### L [id number] ####[facility] ([facility])[address] [place] [address] Urea nitrogen [Mass/Vol] 27 mg/dL High 7-25 [facility] Comment on above: Performed By: #### L [id number] ####[facility] ([facility])[address] [place] [address] UREA NITROGEN/CREATININE (MASS RATIO) IN SER/PLAS 23.3 Normal [facility] Comment on above: Performed By: #### L [id number] ####[facility] ([facility])[address] [place] [address] CBCon 01-28-2024 Erythrocyte distribution width (RBC) [Ratio] 14.4 % Normal 11.5-15.0 [facility] Comment on above: Performed By: #### L [id number] #### [facility] ([facility]) [address] [place] [address] ERYTHROCYTE MEAN CORPUSCULAR HEMOGLOBIN CONCENTRATION (G/DL) BY AUTOMATED 32.8 g/dL Normal 32.0-35.0 [facility] Comment on above: Performed By: #### L [id number] #### [facility] ([facility]) [address] [place] [address] Hematocrit (Bld) [Volume fraction] 31.4 % Low 39.0-55.0 [facility] Comment on above: Performed By: #### L [id number] #### [facility] ([facility]) [address] [place] [address] Hemoglobin (Bld) [Mass/Vol] 10.3 g/dL Low 13.0-17.0 [facility] Comment on above: Performed By: #### L [id number] #### [facility] ([facility]) [address] [place] [address] MCH (RBC) [Entitic mass] 29.0 pg Normal 27.0-33.0 [facility] Comment on above: Performed By: #### L [id number] #### [facility] ([facility]) [address] [place] [address] MCV (RBC) [Entitic vol] 88.5 fL Normal 82.0-98.0 [facility] Comment on above: Performed By: #### L [id number] #### [facility] ([facility]) [address] [place] [address] PLATELETS (10*3/UL) IN BLOOD AUTOMATED COUNT 134 10*3/uL Low 150-400 [facility] Comment on above: Performed By: #### L [id number] #### [facility] ([facility]) [address] [place] [address] RBC (Bld) [#/Vol] 3.55 10*6/uL Low 4.20-5.70 [facility] Comment on above: Performed By: #### L [id number] #### [facility] ([facility]) [address] [place] [address] WBC (Bld) [#/Vol] 6.52 10*3/uL Normal 4.00-10.60 [facility] Comment on above: Performed By: #### L [id number] #### [facility] ([facility]) [address] [place] [address] MAGNESIUMon 01-28-2024 Magnesium [Mass/Vol] 1.8 mg/dL Low 1.9-2.7 [facility] Comment on above: Performed By: #### L [id number] #### [facility] ([facility]) [address] [place] [address] PHOSPHORUSon 01-28-2024 Magnesium [Mass/Vol] 2.5 mg/dL Normal 2.5-5.0 [facility] Comment on above: Performed By: #### L [id number] ####[facility] ([facility])[address] [facility] [place] [facility] [place] [address] POCT GLUCOSE METER UNSOLICIT ED RESULTSon 01-28-2024 Glucose [Mass/Vol] 258 mg/dL High 70-105 [facility] Comment on above: Order Comment: Waive d Testing in the ED is performed under the ED CLIA certificate #[id number]. Result Comment: [email or web address] Performed By: #### L [id number] #### [facility] ([facility]) [address] [place] [address] Glucose [Mass/Vol] 133 mg/dL High 70-105 [facility] Comment on above: Order Comment: Waive d Testing in the ED is performed under the ED CLIA certificate #[id number]. Result Comment: [email or web address] Performed By: #### L [id number] ####[facility] ([facility])[address] [place] [address] Glucose [Mass/Vol] 260 mg/dL High 70-105 [facility] Comment on above: Order Comment: Waive d Testing in the ED is performed under the ED CLIA certificate #[id number]. Result Comment: [email or web address] Performed By: #### L [id number] #### [facility] ([facility]) [address] [place] [address] Glucose [Mass/Vol] 140 mg/dL High 70-105 [facility] Comment on above: Order Comment: Waive d Testing in the ED is performed under the ED CLIA certificate #[id number]. Result Comment: [email or web address] Performed By: #### L [id number] #### [facility] ([facility]) [address] [place] [address] 30on 01-27-2024 30 Daily Case Managemen t Update Multidisciplinary rounds have been completed. 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 Pericardial drain remains in place. On amiodarone gtt. Plan to discharge home when medically cleared. Diet: Dietary Orders (From admission, onward) Start Ordered 01/26/24 1247 Special Kitchen Request Once Comments: Chicken noodle soup Fruit cup Diet coke Tilapia (plain) [place] cake 01/26/24 1246 01/26/24 1246 Regular Diet [...] Answer: eval and treat 01/26/24 1241 Normal [facility] 30 The patient is Moder [...] medication and electrolyte replacement as ordered Normal [facility] BASIC METABOLIC PANELon 05-0 Anion gap [Moles/Vol] 11 mmol/L Normal 7-20 [facility] Comment on above: Performed By: #### L [id number] #### [facility] ([facility]) [address] [place] [address] Calcium [Mass/Vol] 7.9 mg/dL Low 8.6-10.3 [facility] Comment on above: Performed By: #### L [id number] #### [facility] ([facility]) [address] [place] [address] Chloride [Moles/Vol] 108 mmol/L High 98-107 [facility] Comment on above: Performed By: #### L [id number] #### [facility] ([facility]) [address] [place] [address] CO2 [Moles/Vol] 22 mmol/L Normal 21-31 [facility] Comment on above: Performed By: #### L [id number] #### [facility] ([facility]) [address] [place] [address] Creatinine [Mass/Vol] 1.31 mg/dL High 0.70-1.30 [facility] Comment on above: Performed By: #### L [id number] #### [facility] ([facility]) [address] [place] [address] GLOMERULAR FILTRATION RATE ML/MIN/1.73 SQ M.PREDICTED 55.7 mL/min/1.73m*2 Low >60.0 [facility] Comment on above: Result Comment: [facility]???s estimated glomerular filtration rate (eGFR) [...] individuals. Performed By: #### L [id number] #### [facility] ([facility]) [address] [place] [address] Glucose [Mass/Vol] 154 mg/dL High 70-100 [facility] Comment on above: Performed By: #### L [id number] #### [facility] ([facility]) [address] [place] [address] Potassium [Moles/Vol] 3.6 mmol/L Normal 3.5-5.1 [facility] Comment on above: Performed By: #### L [id number] #### [facility] ([facility]) [address] [place] [address] Sodium [Moles/Vol] 137 mmol/L Normal 136-145 [facility] Comment on above: Performed By: #### L [id number] #### [facility] ([facility]) [address] [place] [address] Urea nitrogen [Mass/Vol] 30 mg/dL High 7-25 [facility] Comment on above: Performed By: #### L [id number] #### [facility] ([facility]) [address] [place] [address] UREA NITROGEN/CREATININE (MASS RATIO) IN SER/PLAS 22.9 Normal [facility] Comment on above: Performed By: #### L [id number] #### [facility] ([facility]) [address] [place] [address] CBCon 01-27-2024 Erythrocyte distribution width (RBC) [Ratio] 14.5 % Normal 11.5-15.0 [facility] Comment on above: Performed By: #### L [id number] #### [facility] ([facility]) [address] [place] [address] ERYTHROCYTE MEAN CORPUSCULAR HEMOGLOBIN CONCENTRATION (G/DL) BY AUTOMATED 32.2 g/dL Normal 32.0-35.0 [facility] Comment on above: Performed By: #### L [id number] #### [facility] ([facility]) [address] [place] [address] Hematocrit (Bld) [Volume fraction] 31.4 % Low 39.0-55.0 [facility] Comment on above: Performed By: #### L [id number] #### [facility] ([facility]) [address] [place] [address] Hemoglobin (Bld) [Mass/Vol] 10.1 g/dL Low 13.0-17.0 [facility] Comment on above: Performed By: #### L [id number] #### [facility] ([facility]) [address] [place] [address] MCH (RBC) [Entitic mass] 29.0 pg Normal 27.0-33.0 [facility] Comment on above: Performed By: #### L [id number] #### [facility] ([facility]) [address] [place] [address] MCV (RBC) [Entitic vol] 90.2 fL Normal 82.0-98.0 [facility] Comment on above: Performed By: #### L [id number] #### [facility] ([facility]) [address] [place] [address] PLATELETS (10*3/UL) IN BLOOD AUTOMATED COUNT 134 10*3/uL Low 150-400 [facility] Comment on above: Performed By: #### L [id number] #### [facility] ([facility]) [address] [place] [address] RBC (Bld) [#/Vol] 3.48 10*6/uL Low 4.20-5.70 [facility] Comment on above: Performed By: #### L [id number] #### [facility] ([facility]) [address] [place] [address] WBC (Bld) [#/Vol] 8.70 10*3/uL Normal 4.00-10.60 [facility] Comment on above: Performed By: #### L [id number] #### [facility] ([facility]) [address] [place] [address] MAGNESIUMon 01-27-2024 Magnesium [Mass/Vol] 2.0 mg/dL Normal 1.9-2.7 [facility] Comment on above: Performed By: #### L [id number] ####[facility] ([facility])[address] [place] [address] NURSNOTEon 01-27-2024 NURSNOTE Patient Name: Tito Goncalves [...] Pulse: 70 65 67 73 Resp: 11 21 Temp: 36.4 ???C (97.5 ???F) 36.5 [...] voiced no concerns at this time. The scenario writer urged the primary RN to call the rapid team if any concerns arise overnight. Vic Euceda RN Rapid Response Team Nurse [phone] 01/27/2024 9:04 PM Normal [facility] NURSNOTE Patient Name: Tito Goncalves [...] this time. Vital signs are stable via quality assurance monitor final and daily lab values are unremarkable. If emergent concerns arise, please call rapid response team. Dominga Millard RN Rapid Response Team Nurse [phone] 01/27/2024 12:15 PM Normal [facility] PHOSPHORUSon 01-27-2024 Magnesium [Mass/Vol] 2.2 mg/dL Low 2.5-5.0 [facility] Comment on above: Performed By: #### L [id number] #### [facility] ([facility]) [address] [place] [address] POCT GLUCOSE METER UNSOLICIT ED RESULTSon 01-27-2024 Glucose [Mass/Vol] 206 mg/dL High 70-105 [facility] Comment on above: Order Comment: Waive d Testing in the ED is performed under the ED CLIA certificate #[id number]. Result Comment: [email or web address] Performed By: #### L [id number] #### [facility] ([facility]) [address] [place] [address] Glucose [Mass/Vol] 187 mg/dL High 70-105 [facility] Comment on above: Order Comment: Waive d Testing in the ED is performed under the ED CLIA certificate #[id number]. Result Comment: [email or web address] Performed By: #### L [id number] #### [facility] ([facility]) [address] [place] [address] Glucose [Mass/Vol] 223 mg/dL High 70-105 [facility] Comment on above: Order Comment: Waive d Testing in the ED is performed under the ED CLIA certificate #[id number]. Result Comment: aye [email or web address] Performed By: #### L [id number] #### [facility] ([facility]) [address] [place] [address] Glucose [Mass/Vol] 160 mg/dL High 70-105 [facility] Comment on above: Order Comment: Waive d Testing in the ED is performed under the ED CLIA certificate #[id number]. Result Comment: aye [email or web address] Performed By: #### L [id number] #### [facility] ([facility]) [address] [place] [address] 30on 01-26-2024 30 Daily Case Managemen t [...] soup Fruit cup Diet coke Tilapia (plain) [place] cake 01/26/24 1246 01/26/24 1246 Regular Diet [...] Answer: eval and treat 01/26/24 1241 Normal [facility] BASIC METABOLIC PANELon 05-0 Anion gap [Moles/Vol] 12 mmol/L Normal 7-20 [facility] Comment on above: Performed By: #### L [id number] ####[facility] ([facility])[address] [place] [address] Calcium [Mass/Vol] 7.6 mg/dL Low 8.6-10.3 [facility] Comment on above: Performed By: #### L [id number] ####[facility] ([facility])[address] [place] [address] Chloride [Moles/Vol] 109 mmol/L High 98-107 [facility] Comment on above: Performed By: #### L [id number] ####[facility] ([facility])[address] [place] [address] CO2 [Moles/Vol] 21 mmol/L Normal 21-31 [facility] Comment on above: Performed By: #### L [id number] ####[facility] ([facility])[address] [place] [address] Creatinine [Mass/Vol] 1.62 mg/dL High 0.70-1.30 [facility] Comment on above: Performed By: #### L [id number] ####[facility] ([facility])[address] [place] [address] GLOMERULAR FILTRATION RATE ML/MIN/1.73 SQ M.PREDICTED 43.2 mL/min/1.73m*2 Low >60.0 [facility] Comment on above: Result Comment: [facility]???s estimated glomerular filtration rate (eGFR) [...] AB15 ####[facility] ([facility])[address] [place] [address] Glucose [Mass/Vol] 152 mg/dL High 70-100 [facility] Comment on above: Performed By: #### L [id number] ####[facility] ([facility])[address] [place] [address] Potassium [Moles/Vol] 3.9 mmol/L Normal 3.5-5.1 [facility] Comment on above: Performed By: #### L [id number] ####[facility] ([facility])[address] [place] [address] Sodium [Moles/Vol] 138 mmol/L Normal 136-145 [facility] Comment on above: Performed By: #### L [id number] ####[facility] ([facility])[address] [place] [address] Urea nitrogen [Mass/Vol] 37 mg/dL High 7-25 [facility] Comment on above: Performed By: #### L [id number] ####[facility] ([facility])[address] [place] [address] UREA NITROGEN/CREATININE (MASS RATIO) IN SER/PLAS 22.8 Normal [facility] Comment on above: Performed By: #### L [id number] ####[facility] ([facility])[address] [place] [address] CBCon 01-26-2024 Erythrocyte distribution width (RBC) [Ratio] 14.5 % Normal 11.5-15.0 [facility] Comment on above: Performed By: #### L [id number] #### [facility] ([facility]) [address] [place] [address] ERYTHROCYTE MEAN CORPUSCULAR HEMOGLOBIN CONCENTRATION (G/DL) BY AUTOMATED 31.9 g/dL Low 32.0-35.0 [facility] Comment on above: Performed By: #### L [id number] #### [facility] ([facility]) [address] [place] [address] Hematocrit (Bld) [Volume fraction] 33.2 % Low 39.0-55.0 [facility] Comment on above: Performed By: #### L [id number] #### [facility] ([facility]) [address] [place] [address] Hemoglobin (Bld) [Mass/Vol] 10.6 g/dL Low 13.0-17.0 [facility] Comment on above: Performed By: #### L [id number] #### [facility] ([facility]) [address] [place] [address] MCH (RBC) [Entitic mass] 29.1 pg Normal 27.0-33.0 [facility] Comment on above: Performed By: #### L [id number] #### [facility] ([facility]) [address] [place] [address] MCV (RBC) [Entitic vol] 91.2 fL Normal 82.0-98.0 [facility] Comment on above: Performed By: #### L [id number] #### [facility] ([facility]) [address] [place] [address] PLATELETS (10*3/UL) IN BLOOD AUTOMATED COUNT 123 10*3/uL Low 150-400 [facility] Comment on above: Performed By: #### L [id number] #### [facility] ([facility]) [address] [place] [address] RBC (Bld) [#/Vol] 3.64 10*6/uL Low 4.20-5.70 [facility] Comment on above: Performed By: #### L [id number] #### [facility] ([facility]) [address] [place] [address] WBC (Bld) [#/Vol] 12.08 10*3/uL High 4.00-10.60 [facility] Comment on above: Performed By: #### L [id number] #### [facility] ([facility]) [address] [place] [address] MAGNESIUMon 01-26-2024 Magnesium [Mass/Vol] 1.9 mg/dL Normal 1.9-2.7 [facility] Comment on above: Performed By: #### L [id number] #### [facility] ([facility]) [address] [place] [address] NURSNOTEon 01-26-2024 NURSNOTE Patient Name: Tito Goncalves [...] time, but encouraged to reach out to WATER USE INSPECTOR if anything changes overnight or with any further concerns. Suleman Ortiz RN Rapid Response Team Nurse [phone] 01/26/2024 10:20 PM Normal [facility] PHOSPHORUSon 01-26-2024 Magnesium [Mass/Vol] 3.7 mg/dL Normal 2.5-5.0 [facility] Comment on above: Performed By: #### L [id number] #### [facility] ([facility]) [address] [place] [address] POCT GLUCOSE METER UNSOLICIT ED RESULTSon 01-26-2024 Glucose [Mass/Vol] 163 mg/dL High 70-105 [facility] Comment on above: Order Comment: Waive d Testing in the ED is performed under the ED CLIA certificate #[id number]. Result Comment: [email or web address] Performed By: #### L [id number] ####[facility] ([facility])[address] [place] [address] Glucose [Mass/Vol] 206 mg/dL High 70-105 [facility] Comment on above: Order Comment: Waive d Testing in the ED is performed under the ED CLIA certificate #[id number]. Result Comment: [email or web address] Performed By: #### L [id number] #### [facility] ([facility]) [address] [place] [address] Glucose [Mass/Vol] 155 mg/dL High 70-105 [facility] [place] [facility] Comment on above: Order Comment: Waive d Testing in the ED is performed under the ED CLIA certificate #[id number]. Result Comment: [email or web address] Performed By: #### L [id number] ####[facility] ([facility])[address] [place] [address] Glucose [Mass/Vol] 150 mg/dL High 70-105 [facility] Comment on above: Order Comment: Waive d Testing in the ED is performed under the ED CLIA certificate #[id number]. Result Comment: tful [email or web address] Performed By: #### L [id number] ####[facility] ([facility])[address] [place] [address] 30on 01-25-2024 30 Daily Case Managemen t Update Multidisciplinary rounds have been completed. Barriers to Discharge: 01/24- patient here for planned atrial appendage closure. Per morning meeting the patient fell this morning, presumably from hypotension (BP in 60s/70s). Gave patient fluids to rescusitate but was unsuccessful. Patient was started on levophed and brought to MICU. 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 Patient has pericardial drain. May need pt ot given age but would anticipate home maybe with [facility]. CB Diet: Dietary Orders (From admission, onward) Start Ordered 01/24/24 1051 Regular Diet Diabetic Male (carb 60g/meal) Diet effective now Question Answer Comment Room Service? Yes Carbohydrate restriction: Diabetic Male (carb 60g/meal) 01/24/24 1050 Physician Expected Discharge Date: 01/25/2024 Discharge Delays: PT Six Click Score: 21 OT Six Click Score: PT Recommendations: OT Recommendations: New Consults: Normal [facility] BASIC METABOLIC PANELon 05-0 Anion gap [Moles/Vol] 18 mmol/L Normal 7-20 [facility] Comment on above: Performed By: #### L [id number] #### [facility] ([facility]) [address] [place] [address] Calcium [Mass/Vol] 7.8 mg/dL Low 8.6-10.3 [facility] Comment on above: Performed By: #### L [id number] #### [facility] ([facility]) [address] [place] [address] Chloride [Moles/Vol] 104 mmol/L Normal 98-107 [facility] Comment on above: Performed By: #### L [id number] #### [facility] ([facility]) [address] [place] [address] CO2 [Moles/Vol] 20 mmol/L Low 21-31 [facility] Comment on above: Performed By: #### L [id number] #### [facility] ([facility]) [address] [address] Creatinine [Mass/Vol] 1.99 mg/dL High 0.70-1.30 [facility] Comment on above: Performed By: #### L [id number] #### [facility] ([facility]) [address] [place] [address] GLOMERULAR FILTRATION RATE ML/MIN/1.73 SQ M.PREDICTED 33.7 mL/min/1.73m*2 Low >60.0 [facility] Comment on above: Result Comment: [facility]???s estimated glomerular filtration rate (eGFR) [...] individuals. Performed By: #### L [id number] #### [facility] ([facility]) [address] [place] [address] Glucose [Mass/Vol] 257 mg/dL High 70-100 [facility] Comment on above: Performed By: #### L [id number] #### [facility] ([facility]) [address] [place] [address] Potassium [Moles/Vol] 5.0 mmol/L Normal 3.5-5.1 [facility] Comment on above: Performed By: #### L [id number] #### [facility] ([facility]) [address] [place] [address] Sodium [Moles/Vol] 137 mmol/L Normal 136-145 [facility] Comment on above: Performed By: #### L [id number] #### [facility] ([facility]) [address] [place] [address] Urea nitrogen [Mass/Vol] 30 mg/dL High 7-25 [facility] Comment on above: Performed By: #### L [id number] #### [facility] ([facility]) [address] [place] [address] UREA NITROGEN/CREATININE (MASS RATIO) IN SER/PLAS 15.1 Normal [facility] Comment on above: Performed By: #### L [id number] #### [facility] ([facility]) [address] [place] [address] BLOOD CULTUREon 01-25-2024 Bacteria identified Cx Nom (Bld) No growth at 5 days Normal [facility] Comment on above: Order Comment: From a different site than #1. Performed By: #### L [id number] #### [facility] ([facility]) [address] [place] [address] Bacteria identified Cx Nom (Bld) No growth at 5 days Normal [facility] Comment on above: Performed By: #### L [id number] #### [facility] ([facility]) [address] [place] [address] CBCon 01-25-2024 Erythrocyte distribution width (RBC) [Ratio] 14.1 % Normal 11.5-15.0 [facility] Comment on above: Performed By: #### L [id number] #### [facility] ([facility]) [address] [place] [address] ERYTHROCYTE MEAN CORPUSCULAR HEMOGLOBIN CONCENTRATION (G/DL) BY AUTOMATED 31.9 g/dL Low 32.0-35.0 [facility] Comment on above: Performed By: #### L [id number] #### [facility] ([facility]) [address] [place] [address] Hematocrit (Bld) [Volume fraction] 34.5 % Low 39.0-55.0 [facility] Comment on above: Performed By: #### L [id number] #### [facility] ([facility]) [address] [place] [address] Hemoglobin (Bld) [Mass/Vol] 11.0 g/dL Low 13.0-17.0 [facility] Comment on above: Performed By: #### L [id number] #### [facility] ([facility]) [address] [place] [address] MCH (RBC) [Entitic mass] 28.9 pg Normal 27.0-33.0 [facility] Comment on above: Performed By: #### L [id number] #### [facility] ([facility]) [address] [place] [address] MCV (RBC) [Entitic vol] 90.6 fL Normal 82.0-98.0 [facility] Comment on above: Performed By: #### L [id number] #### [facility] ([facility]) [address] [place] [address] PLATELETS (10*3/UL) IN BLOOD AUTOMATED COUNT 191 10*3/uL Normal 150-400 [facility] Comment on above: Performed By: #### L [id number] #### [facility] ([facility]) [address] [place] [address] RBC (Bld) [#/Vol] 3.81 10*6/uL Low 4.20-5.70 [facility] Comment on above: Performed By: #### L [id number] #### [facility] ([facility]) [address] [place] [address] WBC (Bld) [#/Vol] 13.57 10*3/uL [facility] 4.00-10.60 [facility] Comment on above: Performed By: #### L [id number] #### [facility] ([facility]) [address] [place] [address] CONSULTon 01-25-2024 CONSULT ------ -- Attestation signed [...] complication and [facility] night monitoring to be [...] mL, i (more content not included)... Normal [facility] CT CERVICAL SPINE WO IV [...] signed: Trenton Martinez. 9 Invalid Interpretation Code [facility] CT CHEST WO IV CONTRASTon [...] signed: Trenton Martinez. 5 Invalid Interpretation Code [facility] CT HEAD WO IV CONTRASTon [...] signed: Trenton Martinez. 1 Invalid Interpretation Code [facility] HPon 01-25-2024 HP H&P reviewed. [...] procedure. He would like to proceed. Normal [facility] LACTIC ACID WITH 4 HOUR REFL EXon 01-25-2024 LACTATE (MMOL/L) IN SER/PLAS 2.1 mmol/L Normal 0.5-2.2 [facility] Comment on above: Performed By: #### L [id number] #### [facility] ([facility]) [address] [place] [address] LACTATE (MMOL/L) IN SER/PLAS 3.3 mmol/L Critically high 0.5-2.2 [facility] Comment on above: Performed By: #### L [id number] ####[facility] ([facility])[address] [place] [address] MAGNESIUMon 01-25-2024 Magnesium [Mass/Vol] 1.8 mg/dL Low 1.9-2.7 [facility] Comment on above: Performed By: #### L [id number] #### [facility] ([facility]) [address] [place] [address] POCT GLUCOSE METER UNSOLICIT ED RESULTSon 01-25-2024 Glucose [Mass/Vol] 164 mg/dL High 70-105 [facility] Comment on above: Order Comment: Waive d Testing in the ED is performed under the ED CLIA certificate #[id number]. Result Comment: tful [email or web address] Performed By: #### L [id number] ####[facility] ([facility])[address] [facility] [place] [address] Glucose [Mass/Vol] 134 mg/dL High 70-105 [facility] Comment on above: Order Comment: Waive d Testing in the ED is performed under the ED CLIA certificate #[id number]. Result Comment: amur tad Performed By: #### L [id number] ####[facility] ([facility])[address] [place] [address] Glucose [Mass/Vol] 167 mg/dL High 70-105 [facility] Comment on above: Order Comment: Waive d Testing in the ED is performed under the ED CLIA certificate #[id number]. Result Comment: amur tad Performed By: #### L [id number] #### [facility] ([employer]) [address] [place] [address] Glucose [Mass/Vol] 208 mg/dL High 70-105 [facility] Comment on above: Order Comment: Waive d Testing in the ED is performed under the ED CLIA certificate #[id number]. Result Comment: amur tad Performed By: #### L [id number] ####[facility] ([facility])[address] [place] [address] Glucose [Mass/Vol] 270 mg/dL High 70-105 [facility] Comment on above: Order Comment: Waive d Testing in the ED is performed under the ED CLIA certificate #[id number]. Result Comment: nbow en Performed By: #### L [id number] ####[facility] ([facility])[address] [place] [address] PROCALCITONIN TESTon 024 PROCALCITONIN IN BLOOD 0.05 ng/mL Normal 0.00-0.10 [facility] Comment on above: Result Comment: Susp ected [...] PCT<0.5ng/mL Performed By: #### L [id number] #### [facility] ([facility]) [address] [place] [address] PROTIME-INRon 01-25-2024 INR IN PPP BY COAGULATION ASSAY 1.24 High 0.90-1.10 [facility] Comment on above: Result Comment: [...] 1995;108:231S-246S. Performed By: #### L [id number] #### [facility] ([facility]) [address] [place] [address] PROTHROMBIN TIME (PT) IN PPP BY COAGULATION ASSAY 15.7 Seconds High 12.3-14.8 [facility] Comment on above: Performed By: #### L [id number] #### [facility] ([facility]) [address] [place] [address] TROPONIN Ion 01-25-2024 Troponin I.cardiac [Mass/Vol] 0.84 ng/mL Critically high 0.00-0.04 [facility] Comment on above: Performed By: #### L [id number] #### [facility] ([facility]) [address] [place] [address] 30on 01-24-2024 30 The patient is Moder [...] and maintained or improved Outcome: Progressing Normal [facility] BASIC METABOLIC PANELon 12-27 Anion gap [Moles/Vol] 13 mmol/L Normal 7-20 [facility] Comment on above: Performed By: #### L [id number] ####[facility] (BEAKER)[address] [place] [address] Calcium [Mass/Vol] 8.8 mg/dL Normal 8.6-10.3 [facility] Comment on above: Performed By: #### L [id number] ####[facility] ([facility])[address] [place] [address] Chloride [Moles/Vol] 103 mmol/L Normal 98-107 [facility] Comment on above: Performed By: #### L [id number] ####[facility] ([facility])[address] [place] [address] CO2 [Moles/Vol] 25 mmol/L Normal 21-31 [facility] Comment on above: Performed By: #### L [id number] ####[facility] ([facility])[address] [place] [address] Creatinine [Mass/Vol] 1.26 mg/dL Normal 0.70-1.30 [facility] Comment on above: Performed By: #### L [id number] ####[facility] ([facility])[address] [place] [address] GLOMERULAR FILTRATION RATE ML/MIN/1.73 SQ M.PREDICTED 58.4 mL/min/1.73m*2 Low >60.0 [facility] Comment on above: Result Comment: [facility]???s estimated glomerular filtration rate (eGFR) [...] [facility] [place] [address] Glucose [Mass/Vol] 184 mg/dL High 70-100 [facility] Comment on above: Performed By: #### L [id number] ####[facility] ([facility])[address] [facility] [address] Potassium [Moles/Vol] 4.3 mmol/L Normal 3.5-5.1 [facility] Comment on above: Performed By: #### L [id number] ####[facility] ([facility])[address] [facility] [place] [address] Sodium [Moles/Vol] 137 mmol/L Normal 136-145 [facility] Comment on above: Performed By: #### L [id number] ####[facility] ([facility])[address] [facility] [place] [address] Urea nitrogen [Mass/Vol] 21 mg/dL Normal 7-25 [facility] Comment on above: Performed By: #### L [id number] ####[facility] ([facility])[address] [facility] [place] [address] UREA NITROGEN/CREATININE (MASS RATIO) IN SER/PLAS 16.7 Normal [facility] Comment on above: Performed By: #### L [id number] ####[facility] ([facility])[address] [facility] [address] HPon 01-24-2024 HP History Of Present Nori [...] In April 2019 he presented to the [facility] with atrial fibrillation with controlled ventricular response. [...] cardiac remod (more content not included)... Normal [facility] MRSA/MSSA DNA NASALon 2023 MRSA DNA Negative Normal Negative [facility] Comment on above: Order [...] preclude nasal colonization. Performed By: #### L [id number] ####[facility] ([facility])[address] [place] [address] MSSA DNA Negative Normal Negative [facility] Comment on above: Order [...] preclude nasal colonization. Performed By: #### L [id number] ####[facility] ([facility])[address] [place] [address] NURSNOTEon 01-24-2024 NURSNOTE CHG wipes completed. Normal [facility] POCT GLUCOSE METER UNSOLICIT ED RESULTSon 01-24-2024 Glucose [Mass/Vol] 146 mg/dL High 70-105 [facility] Comment on above: Order Comment: Waive d Testing in the ED is performed under the ED CLIA certificate #[id number]. Result [facility] Performed By: #### L [id number] #### [facility] ([facility]) [address] [place] [address] TYPE AND SCREENon 01-24-2024 AB SCREEN Negative Normal [facility] Comment on above: Performed By: #### L [id number] ####[facility], ABO group Nom (Bld) A Normal [facility] Comment on above: Performed By: #### L [id number] ####[facility], RH TYPE IN BLOOD Positive Normal [facility] Comment on above: Performed By: #### L [id number] ####[facility], Basophils Auto (Bld) [#/Vol] on 01-18-2024 Basophils (Bld) [#/Vol] 0.0 10 3/uL 0.0-0.1 [facility] Basophils/100 WBC Auto (Bld) on 01-18-2024 Basophils/100 WBC (Bld) 0.4 % 0.2-2.0 [facility] Eosinophils/100 WBC Auto (Bl d)on 01-18-2024 Eosinophils/100 WBC (Bld) 2.3 % 0.9-7.0 [facility] Erythrocyte distribution wid th Auto (RBC) [Ratio]on 01-18-2024 Erythrocyte distribution width (RBC) [Ratio] 13.6 % 11.0-15.0 [facility] Estimated glomerular filtrat ion rate (GFR) non- Americanon 01-18-2024 GFR/1.73 sq M.predicted among non-blacks MDRD (S/P/Bld) [Vol rate/Area] 48 mL/min/{1.73_m2} Low >=60 [facility] Hematocrit Auto (Bld) [Volum e fraction]on 01-18-2024 Hematocrit (Bld) [Volume fraction] 37.0 % Low 42.0-54.0 [facility] Hemoglobin [Mass/volume] in Bloodon 01-18-2024 Hemoglobin (Bld) [Mass/Vol] 11.7 g/dL Low 14.0-18.0 [facility] - Chemistry and C hemistry - challengeon 01-18-2024 Calcium [Mass/Vol] 8.6 mg/dL 8.5-10.1 [facility] Chloride [Moles/Vol] 103 mmol/L 98-107 [facility] CO2 [Moles/Vol] 30.4 mmol/L 21.0-32.0 [facility] Creatinine [Mass/Vol] 1.44 mg/dL High 0.70-1.30 [facility] GFR/1.73 sq M.predicted MDRD (S/P/Bld) [Vol rate/Area] 58 mL/min/{1.73_m2} Low >=60 [facility] Glucose [Mass/Vol] 140 mg/dL High 74-106 [facility] Potassium [Moles/Vol] 4.5 mmol/L 3.5-5.1 [facility] Sodium [Moles/Vol] 140 mmol/L 136-145 [facility] Urea nitrogen [Mass/Vol] 17.0 mg/dL 7.0-18.0 [facility] Urea nitrogen/Creatinine [Mass ratio] 11.8 mg/mg [facility] - Hematology and Cell countson 01-18-2024 Immature granulocytes/100 WBC (Bld) 0.0 % 0.0-0.5 [facility] Leukocytes [#/volume] correc iván for nucleated erythrocytes in Blood by Automated counon 01-18-2024 WBC corrected for nucl RBC Auto (Bld) [#/Vol] 4.8 10 3/uL 4.0-11.0 [facility] Lymphocytes Auto (Bld) [#/Vo l]on 01-18-2024 Lymphocytes (Bld) [#/Vol] 1.6 10 3/uL 1.2-3.8 [facility] Lymphocytes/100 WBC Auto (Bl d)on 01-18-2024 Lymphocytes/100 WBC (Bld) 33.8 % 20.5-60.0 [facility] MCH Auto (RBC) [Entitic mass ]on 01-18-2024 MCH (RBC) [Entitic mass] 28.3 pg 25.9-34.0 [facility] MCHC Auto (RBC) [Mass/Vol]on 01-18-2024 MCHC (RBC) [Mass/Vol] 31.6 g/dL 29.9-35.2 [facility] MCV Auto (RBC) [Entitic vol] on 01-18-2024 MCV (RBC) [Entitic vol] 89.6 fL 80.0-94.0 [facility] Monocytes Auto (Bld) [#/Vol] on 01-18-2024 Monocytes (Bld) [#/Vol] 0.6 10 3/uL 0.3-0.8 [facility] Monocytes/100 WBC Auto (Bld) on 01-18-2024 Monocytes/100 WBC (Bld) 11.8 % 1.7-12.0 [facility] Neutrophils Auto (Bld) [#/Vo l]on 01-18-2024 Neutrophils (Bld) [#/Vol] 2.5 10 3/uL 1.4-6.5 [facility] Neutrophils/100 WBC Auto (Bl d)on 01-18-2024 Neutrophils/100 WBC (Bld) 51.7 % 43.0-75.0 [facility] No Panel Informationon 01-17 Eosinophils # (Auto) 0.1 10 3/uL 0.0-0.7 [facility] Immature Granulocyte # (Auto) 0.00 10 3/uL 0.00-0.03 [facility] Orders Onlyon 01-18-2024 Orders Only [id number] Amina Goncalves 1945 M Date Provider Department Center 01/18/2024 [facility] Family History Problem Relation Age of Onset Cancer Mother Heart attack Other Family Status - Relation Status Age at Mother Other Normal [facility] Platelet mean volume Auto (B ld) [Entitic vol]on 01-18-2024 Platelet mean volume (Bld) [Entitic vol] 11.4 fL 9.5-13.5 [facility] Platelets Auto (Bld) [#/Vol] on 01-18-2024 Platelets (Bld) [#/Vol] 186 10 3/uL 150-450 [facility] RBC Auto (Bld) [#/Vol]on RBC (Bld) [#/Vol] 4.13 10 6/uL Low 4.70-6.10 [facility] Serum or plasma anion gap de terminationon 01-18-2024 Anion gap [Moles/Vol] 11.1 mmol/L [facility] Optical coherence tomography study reporton 10-28-2023 [facility] Radiology Study observation (narrative) [facility] Healthcare Coding Summaryon 07-11-2023 Coding Summary HTMLBase 64 RjcbgvhnTXf8mQf+PGhlYWQ+PE 8VXCFmM15bkKVatZ4nE1SJHNoI LxwuCIZYPTwEVwUfprCrNP8rcM NjZXJu IC8+SR4nAJNxDozmeHWpx7X6aK X7C82aql8rRBvphHF0VRNgLgXu zlyys2yndBe2GPdqRrfqTeEw UKTpxS60ZWE3gW64Kq62zJUjmE Ljo4omlIz2OuNiORItRKW4iViv SRhnw0GuCAFjD20ujLKbd9K8 QYBllLbfnEBhTtXzjWR5nN0tEQ oajllxl1ewbilzKsz0jk11xGHw r0S1zHK5P0HqjwV7PNWvwGIv KzgybUBXgB5qgkcvu7seoqsuDy HfBWUfDBf8HNf4ZSHoxGswBuKz NI61LZC7ULUuapDuW5ViBMBx uEmjOgP0l6N1Zp9OE3AORrdcF0 VNTUFSWTwvdGQ+EJ07yd63D8Hv RrziBom7HOIwYLI1iKU3nX4o ORHpVYpxv1I2nBT3T6HvziQlrz 8mb5qxPEEgOBptJ20pzQRkd1L8 LVDrjQK0CAFutAheMjTrmD52 Oyc+YXPdmWjuv2ZcEdvnr9eay7 yowKl8AlfmIRRuzzMbgYibLNP4 n5VyVl3dPNAosFJ0iQE9aY1k GoZfCwK7XGfkD056MvNrwSKxTc jgI05bT6DcgLQ+XKGhCmt5WSQo bVelST4wR3GvTMAaelqyyYRr eNvkTG2pOJVhxrlzIVQnqV3mCW AxV3h5IySdYiI2IIqhJ9KhUXSx kczhQl98dY8qDqIxCoO9WWkj Y3BehpW9KWBxoRDhYCocWQD6H4 2tm2H4YPSeRHEnDHB3jDW4oU6j bGlnbjogbGVmdDsgdmVydGlj RHkuBNhlE100FZIacXksHqZsZH luZyBEYXRlOiAgMTAvMTYvMjAy MzwvdGQ+IZHwQCR9cWreKDBj hBAaAZofXi0gsFssyPimVU9rIM ReenkkISRmxY2rTEKeqEPorIyh TS5tROVkaahna198VqUcJOQ9 YAWcbSXtE8WjeA2lSmMyVSTrHK RwZ5OxdFByOFcqY119EYlaZfP2 DPKdscSaS8ZuAXXnmCuyYlV1 k1G1Bf3Uw5UghqbrH5ZcuWWyHh BzPyppTRt9T2NcTvmucYR+PC90 XEDyKR58WEg6IAJ9xIzeHEmq ZIItQ5WuzF2oGsTiYZIpRHKyIl c+PHRhYmxlIHdpZHRoPScxMDAl YkOcaMfxPT4rAf3dTWQtZAOp aUsnwGWpPgMoo5qtPOHzTYtqTN 9wxYooD3TbmAB3ECCbh5t9Bo67 J55xK7EazIX+NFPyyNP2tKZ0 nP3vKlZnUsU7QTuaH332RsXrhG FiNjixn5bng8ueyTx8HzB0SWXj eaQqkJghWAP5k7OoSv98L06s IHdpZHRoPSIxNSUiIHZhbGlnbj 0hlI6bRo5+WMZkeZG1mDB2pO5a IpOtEwA8IAdiV951JtWruQKu Gpvkq8sde8dxvKk2ZtLkKQNgqf EemEfoEYD0m3YtMc94L4VvpQle r5NmDns6uf98cJDfh5J5sZR7 D5ZkSKDffdiiwMWfjUeoEF2gZT WvkpytBGZefW7gWZErQ0g2QrAd KeO9BBwnM6FvjiQ3INDdcFDf YQVeuKUDeY2jbobtp4xgkgmgSv OnFYTyXOn2JRm6HWVjoUujSlJf XGM1TwK0OAW3eSJrvW5fjAvs qweleY7eSxm+HNH2nYAusLFYVN 1lOjwvdGQ+VFLbGRK4dXmjJAtd OUSuxH4rCUKcR7v2CqCwSgL4 ZWapJ1NdisR7UETqfYCeSQHfgM NSpI2roleii5mlbvkgHyHuVJBq RXq3PDk2XVRusIcwVmQcATR7 ObL0PPM1dAFtnM5tiRopprvuuK 9wOyc+ZakbvXjwVTH7UTx6C9Mo Pyg4KFFzjAefUL8muXHqWBqv Gw9unNpigVuzNA0rSRRislpyl1 00BsNlx1uzLZIklGCrBOhxBMH1 X60ch6A5OBVjVXWaCQV3lVU0 wW9nsRplkfgzdOVleEqzjdVxwE liJWzuUUbpK610EZTscBhjDkRh KKe0F2OzRgj2CZTlpYwoHX6g eDUfCEzqSt1ceAddvXhrZO9aJG Bxmustw146YoMum8rlUIStzQXe TGavUAD6F57ns8S0HORnOMHj XBF9zSG0xN1wtWgfjmxfnTFcwJ pdhuYurGyjYLnaCTngY911VSGf pWqtFmYkpUe4R8EyAah1OAEp kJbaLA2ilKWiSVpjOc6oeTehtI nlQT6mDGKhnnzli716EmApq3ba JSBgyFLuMVpoAHI5T73vr2V4 PKUwJQToUQY9kVW3cM3dcQujnj ogbGVmdDsgdmVydGljYWwtYWxp T921GAGpeAntUiOioYahllFv BXlgVEa8K7UjPnasjHL+PC90YW TdTY61hLVauKDvo1qhfJi1ApTr NVMhCXC7gDzoXAqfa6ZpVVBd R26aqWQyd5C1RSCthOgqoMXuOt WnfUT9dO3eMAexoumin0unuifm Drcrv8qrqi95eH27J13eELeg QJEmZWOiESBbJMAgqVmfzy3opG 9wIi8+ETYjeFM6qYX7oC3cSMTz DlQ5LQkcN258WmTcjHFiCtib t0ssd0tqjBy5WgQ6JRIntqUdeN eqOCD4e4TqNy45X68fYEuoGBAk NLXrYQVlODShsVnqqv7pnV8p Ii8+HKTepMI7qUK5vD3zKfAcKy W2CWzkA430FkEmyBNfRsyfQ43w S3TndPJ+POOwQvx9GCLnyAbr HM7vbAQmPObgSs9mOJO8CzNzMl RaWEesU2ZjKTSqpxrauzlioTP6 SXZbCDWhkP47Zh9ttHkcOEZv vDUXaZ7dnycex3mtlqpzBwDkEY AmLJd6JEa2FEBywUfkFjXsJMX0 VnR9ERV5pQNagN2pwEkrbomv bH2zC5YvRJButwrhZu76aQ7pJb SxDuO0UOhvTrk+R3XUGODzMAFJ W7ODDGIPNUDLBCUJIR56EF49 wYSak8B2vCK1F8XuCJLjnnkemc nzvVJ1JAEvAJVctH07aXJaGMbf Iv1hh3K6e573VZUqBXGraN46 Sh3mjSqnQVMlkEXFsG1emfhal1 cqpoyrJtNaOBToWYp6SGz1YOGf eRktBsPwBNU4KiM4XBS4iPVf pH7itFciyznxbG2vZus+MDQvMj xoQSt1GboujKC+GLNiPAH2yMxa RGktODUcdS7qGJBrZ5u8XiRi YfF2GCkcL9WxYYPaokpyTt57oX 7wOwTmTeH9IVqhN8XpomI8DHJl nPLtTZqlRNQ4P01ix4T5AXSk EPXkLVE7dZN4cN3bcYoyixyflP IqeRccvzPcjZdrPAtfMRkjN292 CXKefScrJrs9FBwuATUmVU55 UK64mHZgv6B8gJL6S3FzQLBupt extylbiKA2RILhJNMhqW06yLNd CJkkAh0hu3L3c116TFGtFGLz yH15Kv1otRgxYIPmiNTWkS0roz wgm5iqimkaXyPvFUIcVWt7ZWb3 MOIosDjsMsEuTGZ4YhU0RPF0 tAHipT3zzDwdcyqfhZ1kHbe+TU FMRTwvdGQ+XWTtYOX7qBnaAHuj RQFxeJ4lWGNvN1i9OyIlMfR3 ZUfcE9MtUINfkybgKu23xW9qBf XvGzK4BKifA2ZlqmF2FBVxdOZa ZCbsYMT0Q35uy3H8BYVlJLFt ZYE6xDP6iX9aiYewnymtpLTjtE dmosRzrEdmUHyqJKpyR575TQCi zIsjUrJdQMQhOT3jwQiyqQO+ CJ11lr33Y0EqRofgBzl5PIEdYM G5xDO6nU2bQFOqXBgdq5R2bSP5 Z9GlqsQuch5pu1mcCALgKGzc V22maAJdc1X6NLMpwRT0JSCavO vrXqLjhX86Kjy+QHVvhQcnx7Rd Ciaoh0vvb2wjkLs7JcViRITc fqOytQkcWRH3p4HdRc68X04vHK lnLVYqTFNdRMDlJWIsoJrqdj4x sS4wVp3+ZBIrrOZ7wCU6qN3p VwAnIuZ0CEpuT545WiWemKUqHf duf7gso9teuTu3CzYjSJVgnrRk xAviNHI6l3ImEa28H4TjfFen r7ApGyk8xt20qIVxt5U2cSK8Q1 PoBBLmfmpyzHZmaSwnIA7gVNXq fvowXJRbjY4cMENbB6g6QbOa TvE5UOafF1YrljG6AUGhmQRiCA GhvOZBbO8kiwkmp7moboyvRqAa ZBSxSIi3QYq7QROevJwsGtEl GUM0VbP7QNT4mZRmcX0sfCzhan bwqI7vFcf+EBf3t5tbaIZrJU9g qAJ4PS87LF55pIQbn8D7eER4 I9EiZLEkovbthzjhxGZ6HWMrST SkeI26Is7dtWtaWf6wCPKqYAP0 OBRjyXXcR0DutY0uNlNbXOUg RJMjU6PdmQCyLGhyZ227OAhcGx S4ATSwcrAoQ7KrBHEdkKdvPpV3 g8S8Jy7BBS12VQ74PH66qBQd i4I3pAF0F6GzBOBrxdritbavtG E8MQUuCZQlyZ95Ms0uhIrxAh7t HKBhTUY1MGGxjIBzY1YksH7u KsBoPUQjQIOzP1XohLHiFBkzI3 00VDdhElQ6XTWwchEyS7OeWCKo cFhjUnJ8k8C3Og8IJn23PA52 ZQ04xZYif9D8pBQ0C1IwPYHcyp fkhcuohIR4MCEgSBSpkZ53Mz1a kWbnQz9rUEIoTDJ4KPHsfKHg A5EmvJ6rZuLpEILkWKZcM5MkrW KjKHirJ979JNerMbF4KAYexsPm J9NwOTFzpRaaKeE1g6O1Nr3M UYhhpwe7Z2UsFcidcQR+PC90YW BtTG79aGUxjCLed8nblPa7ZtRv SHIlABD9eNyvNWgts0YjYBKo Y29 (more content not included)... [facility] ED Clinical Summaryon 2022 ED Clinical Summary [facility] Emergency Department [address] [place] [id number] ED Clinical Summary PERSON INFORMATION Name: TITO GONCALVES Age: 78 Years Sex: MALE : 1945 MRN: Acct#: Visit Reason: Eye Injury; Fall; FALL/LT EYE LAC Arrival: 07/05/2023 16:48:26 Discharge: 07/05/2023 18:40:00 LOS: 000 01:52 Check In: 07/05/2023 16:48:26 Checkout:07/05/2023 18:40:00 [facility]: [facility] [address] PCP: Augustine Metz PROVIDER INFORMATION Provider Role [...] understanding of instructions given Comment: [facility] ED Patient Education Noteon 07-05-2023 ED Patient Education Note Education Materials [facility] ED Patient Summaryon 023 ED Patient Summary [facility] Emergency Department [address] [place] [address] PATIENT DISCHARGE INSTRUCTIONS Patient Information Name: TITO GONCALVES Age: 78 Years Date of : 1945 Reason For Visit: Eye Injury; Fall; FALL/LT EYE LAC Arrival Time: 07/05/2023 16:48:26 Primary Care Physician: Augustine Metz Attending Physician: Colin Song DO Comment: Visit Diagnosis: Diagnoses This Visit Eye Injury ([id number]) Fall ([id number]) The Pharmacy at [facility] is open Tuesday through Tuesday from [...] alcohol and/or drug addiction problems; contact the [facility] 18/04 Crisis Hotline -Text 7QTMK ap [phone]. If you received any narcotics, sedation, or [...] and treatment you received today in the [facility] Emergency Department were for an urgent problem and are not intended as complete care. It is important for you to follow up with a doctor, nurse practitioner, or physician?s assistant professor of chemistry for ongoing care. If your symptoms become [...] so we can reach you if necessary. [facility] Emergency Department has provided you with a complete list of medications post discharge. 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 [facility] Phone Msgon 02-01-2023 Phone Msg - [...] mailed to his address on file. Normal [facility] CBC AUTO DIFFon 2023 BASO # 0.0 103/ul Normal 0.0-0.1 [facility] Comment on above: Performed By: #### C BC #### [facility] [address] [place] [address] Dr. Arjun Menjivar Basophils/100 WBC (Bld) 0.4 % Normal 0.2-2.0 [facility] Comment on above: Performed By: #### C BC #### [facility] [address] [place] [address] Dr. Arjun Menjivar EO # 0.1 103/ul Normal 0.0-0.7 [facility] Comment on above: Performed By: #### C BC #### [facility] [address] [place] [address] Dr. Arjun Menjivar Eosinophils/100 WBC (Bld) 1.5 % Normal 0.9-7.0 [facility] Comment on above: Performed By: #### C BC #### [facility] [address] [place] [address] Dr. Arjun Menjivar Erythrocyte distribution width (RBC) [Ratio] 13.7 % Normal 11.0-15.0 [facility] Comment on above: Performed By: #### C BC #### [facility] [address] [place] [address] Dr. Arjun Menjivar Hematocrit (Bld) [Volume fraction] 41.9 % Critically low 42.0-54.0 [facility] Comment on above: Performed By: #### C BC #### [facility] [address] [place] [address] Dr. Arjun Menjivar Hemoglobin (Bld) [Mass/Vol] 13.7 g/dL Critically low 14.0-18.0 [facility] Comment on above: Performed By: #### C BC #### [facility] [address] [place] [address] Dr. Arjun Menjivar IG # 0.02 10e3/ul Normal 0.00-0.03 [facility] Comment on above: Performed By: #### C BC #### [facility] [address] [place] [address] Dr. Arjun Menjivar IG % 0.3 % Normal 0.0-0.5 [facility] Comment on above: Performed By: #### C BC #### [facility] [address] [place] [address] Dr. Arjun Menjivar LYMPH # 1.4 103/ul Normal 1.2-3.8 [facility] Comment on above: Performed By: #### C BC #### [facility] [address] [place] [address] Dr. Arjun Menjivar Lymphocytes/100 WBC (Bld) 16.9 % Critically low 20.5-60.0 [facility] Comment on above: Performed By: #### C BC #### [facility] [address] [place] [address] Dr. Arjun Menjivar MANUAL DIFF REQ NO Normal [facility] Comment on above: Performed By: #### C BC #### [facility] [address] [place] [address] Dr. Arjun Menjivar MCH (RBC) [Entitic mass] 28.8 pg Normal 25.9-34.0 [facility] Comment on above: Performed By: #### C BC #### [facility] [address] [place] [address] Dr. Arjun Menjivar MCHC (RBC) [Mass/Vol] 32.7 g/dL Normal 29.9-35.2 [facility] Comment on above: Performed By: #### C BC #### [facility] [address] [address] [address] Arjun Menjivar MCV (RBC) [Entitic vol] 88.2 fL Normal 80.0-94.0 [facility] Comment on above: Performed By: #### C BC #### [facility] [address] [address] [address] Arjun Menjivar MONO # 0.5 103/ul Normal 0.3-0.8 [facility] Comment on above: Performed By: #### C BC #### [facility] [address] [address] [address] Arjun Menjivar Monocytes/100 WBC (Bld) 5.9 % Normal 1.7-12.0 [facility] Comment on above: Performed By: #### C BC #### [facility] [address] [place] [address] Dr. Arjun Menjivar NEUT # 6.0 103/ul Normal 1.4-6.5 [facility] Comment on above: Performed By: #### C BC #### [facility] [address] [place] [address] Dr. Arjun Menjivar Neutrophils/100 WBC (Bld) 75.0 % Normal 43.0-75.0 [facility] Comment on above: Performed By: #### C BC #### [facility] [address] [address] [address] Arjun Menjivar Platelet mean volume (Bld) [Entitic vol] 11.4 fL Normal 9.5-13.5 [facility] Comment on above: Performed By: #### C BC #### [facility] [address] [address] [address] Arjun Menjivar PLT 169 103/ul Normal 150-450 [facility] Comment on above: Performed By: #### C BC #### [facility] [address] [address] [address] Arjun Menjivar RBC 4.75 106/ul Normal 4.70-6.10 [facility] Comment on above: Performed By: #### C BC #### [facility] [address] [place], [place] [address] Dr. Arjun Menjivar WBC 8.0 103/ul Normal 4.0-11.0 [facility] Comment on above: Performed By: #### C BC #### [facility] [address] [place], [place] [address] CSPINE WO CONon [...] SALINA ESPINOZA Date: 2023 16:25 Normal [facility] CT HEAD WO CONon 2023 CT [...] TOSHIA ANDRES Date: 2023 21:30 Normal [facility] PROF 14(COMP METB)on 023 Albumin [Mass/Vol] 3.7 g/dL Normal 3.4-5.0 [facility] Comment on above: Performed By: #### C MP ####[facility] [address] [address]DrMago Menjivar Albumin/Globulin [Mass ratio] 1.1 {ratio} Normal [facility] Comment on above: Performed By: #### C MP ####[facility] [address] [id number] Arjun Menjivar ALP [Catalytic activity/Vol] 87 U/L Normal 46-116 [facility] Comment on above: Performed By: #### C MP ####[facility] [address] [address]Dr. Arjun Menjivar ALT [Catalytic activity/Vol] 26 U/L Normal 16-63 [facility] Comment on above: Performed By: #### C MP ####[facility] [address] [place], [place] [address]Dr. Arjun Menjivar Anion gap [Moles/Vol] 9.2 mmol/L Normal [facility] Comment on above: Performed By: #### C MP ####[facility] [address] [place], [place] [address]Dr. Arjun Menjivar AST [Catalytic activity/Vol] 20 U/L Normal 15-37 [facility] Comment on above: Performed By: #### C MP ####[facility] [address] [place], [place] [address]Dr. Arjun Otto Bilirubin [Mass/Vol] 0.4 mg/dL Normal 0.2-1.0 [facility] Comment on above: Performed By: #### C MP ####[facility] [address] [place], [place] [address]Dr. Arjun Otto Calcium [Mass/Vol] 9.1 mg/dL Normal 8.5-10.1 [facility] Comment on above: Performed By: #### C MP ####[facility] [address] [place], [place] [address]Dr. Arjun Menjivar Chloride [Moles/Vol] 105 mmol/L Normal 98-107 [facility] Comment on above: Performed By: #### C MP ####[facility] [address] [place], [place] [address]Dr. Arjun Menjivar CO2 [Moles/Vol] 28.9 mmol/L Normal 21.0-32.0 [facility] Comment on above: Performed By: #### C MP ####[facility] [address] [place], [place] [address]Dr. Arjun Otto Creatinine [Mass/Vol] 1.23 mg/dL Normal 0.70-1.30 [facility] Comment on above: Performed By: #### C MP ####[facility] [address] [address]Dr. Arjun Menjivar EGFR-AF MICRONESIAN >60 Normal >=60 [facility] Comment on above: Performed By: #### C MP ####[facility] [address] [address]Dr. Arjun Otto EGFR-NON AF MICRONESIAN 57 mL/min/1.73m2 Critically low >=60 [facility] Comment on above: Performed By: #### C MP ####[facility] [address] [address]Dr. Arjun Otto Globulin (S) [Mass/Vol] 3.4 g/dL Normal [facility] Comment on above: Performed By: #### C MP ####[facility] [address] [place], [place] [address]Dr. Arjun Otto Glucose [Mass/Vol] 126 mg/dL Critically high 74-106 T [facility] Comment on above: Performed By: #### C MP ####[facility] [address] [place], [place] [address]Dr. Arjun Otto Potassium [Moles/Vol] 4.1 mmol/L Normal 3.5-5.1 [facility] Comment on above: Performed By: #### C MP ####[facility] [address] [place], [place] [address]Dr. Arjun Otto Protein [Mass/Vol] 7.1 g/dL Normal 6.4-8.2 [facility] Comment on above: Performed By: #### C MP ####[facility] [address] [place], [place] [address]Dr. Arjun Otto Sodium [Moles/Vol] 139 mmol/L Normal 136-145 [facility] Comment on above: Performed By: #### C MP ####[facility] [address] [place], [place] [address]Dr. Arjun Otto Urea nitrogen [Mass/Vol] 12.0 mg/dL Normal 7.0-18.0 [facility] Comment on above: Performed By: #### C MP ####[facility] [address] [place] [address]Dr. Arjun Menjivar Urea nitrogen/Creatinine [Mass ratio] 9.8 mg/mg Normal [facility] Comment on above: Performed By: #### C MP ####[facility] [address] [place], [place] [address]Dr. Arjun Menjivar PROTIMEon 2023 INR Coag (PPP) [Relative time] 2.90 {INR} Normal [facility] Comment on above: Performed By: #### P TT, PT ####[facility] [address] [place], [place] [address]Dr. Arjun Menjivar INR GUIDELINES SEE BELOW Normal [facility] Comment on above: Result Comment: PIOTR RED INR: 2.0 - 3.0 CONDITIONS NOT LISTED BELOW 2.5 - 3.5 FOR PROSTHETIC HEART VALVE REPLACEMENT 2.5 - 3.5 RECURRENT THROMBOSIS Performed By: #### P TT, PT ####[facility] [address] [place], [place] [address]Dr. Arjun Menjivar PT Coag (PPP) [Time] 28.9 s Critically high 9.0-11.6 [facility] Comment on above: Performed By: #### P TT, PT ####[facility] [address] [place], [place] [address]Dr. Arjun Menjivar PTTon 2023 aPTT Coag (Bld) [Time] 37.7 s Critically high 22.3-36. 2 [facility] Comment on above: Performed By: #### P TT, PT ####[facility] [address] [place], [place] [address]Dr. Arjun Menjivar XR PELVIS 1_2 VIEWSon 2022 [...] WANG Date: 2023 16:14 Normal [facility] XR ERCP 1 HOUR FLUOROon 10-27 XR ERCP 1 HOUR FLUORO Fluoroscopic maryam candido for ERCP 11/09/2022 6:30 AM FINANCIAL ANALYSIS MANAGER History: DR ORDER;OTHER REASON Tech notes: WHAT [...] by: Radha Haji MD 11/10/2022 8:01 AM FINANCIAL ANALYSIS MANAGER Technologist: AG Dictated By: RADHA HAJI MD Signed By: RADHA HAJI MD Signed Out: 11/10/22 09:01:42 Normal [facility] Anesthesiaon 11-09-2022 Anesthesia Patient: YE GONCALVES [facility]: [phone] Age: 77 years Sex: Male : 1945 [...] Postoperative hydration status: euvolemic. Notes: Normothermia. Normal [facility] Anesthesia Patient: YE GONCALVES Age: [...] release 325 mg = 1 caps, ORAL, [id number] trazodone = Desyrel 50 mg, ORAL, BID [...] available Procedure history: Endoscopic Retrograde Cholangiopancreatography (ERCP). (61144) on 11/09/2022 at 77 Years. Endoscopic Retrograde Cholangiopancreatography (ERCP). (30523) on 08/14/2021 at 76 Years. Esophagogastroduodenoscopy , flexible, transoral; with endoscopic ultrasound examination limited to the esophagus, stomach or duodenum, and adjacent structures (00527) on 07/10/2021 at 76 Years. Social History [...] palate, fauces, uvula visible). Assessment and Plan [place] [employer] Anesthesiologists (ASA) physical status classification: [...] recognition software. Verbal misinterpretations may occur. Normal [facility] ENDO Initial Data VS Prep -Texton 11-09-2022 ENDO Initial Data VS [...] Bettencourt RN - 11/09/2022 7:09 EST Normal [facility] ENDO Outpatient Admission Da taMarokson 11-09-2022 ENDO Outpatient Admission Data-Text Endoscopy OP [...] Home : daughter Amna Surgeon Speak with Agricultural Aircraft Pilot : Yes Voided : No Pain Level and Site : 0 Kaylyn Bettencourt RN - 11/09/2022 7:09 EST Present on Admission Medical Devices : None Medical Devices for Med Administration : None Kaylyn Bettencourt RN - 11/09/2022 7:09 EST Rowland Coma Eye Opening Response Vikas : Spontaneously Best Verbal Response Rowland : Oriented Best Motor Response Vikas : Obeys simple commands Rowland Coma Score : 15 Kaylyn Bettencourt RN - 11/09/2022 7:09 EST Advance Directive *Advance Directive : Yes Kaylyn Bettencourt RN - 11/09/2022 7:09 EST Outpatient Fall Risk GEN_Fall Risk Indicators_[id number] : Age 65 or greater, Medications altering equilibrium or cognitive judgement Fall Risk Band On : Yes Rosalinda Bettencourt RNa - 11/09/2022 7:09 EST Screening-Safety Domestic Concerns : None Feeling Down, Depressed, Hopeless : Not at all Little Interest - Pleasure in Activities : Not at all Initial Depression Screen Score : 0 Depression Screening Score 0 : No Kaylyn Bettencourt RN - 11/09/2022 7:09 EST Education Barriers to Learning : None evident TeachBack Methodology : TeachBack, Demonstration, Explanation, Printed Material Sg GAVIN Banner - 11/09/2022 7:09 EST ENDO Education Activity Expectations : Verbalizes understanding Anesthesia/Sedation : Verbalizes understanding Endo Post Procedure Care : Verbalizes understanding Follow-Up Care/Appointment : Verbalizes understanding Safety : Verbalizes understanding Sg GAVIN, Banner - 11/09/2022 7:09 EST Normal [facility] Inpatient Patient Summaryon 11-09-2022 Inpatient Patient Summary [facility] Discharge Instructions [address] [place] [address] \.br\(Patient Copy)\.br\ \.br\ \.br\Name: TITO GONCALVES : 1945 \.br\Diagnosis: \.br\ \.br\Allergies: sulfa drugs; penicillins; iodine topical\.br\ \.br\Registration Date: 11/09/22\.br\.br\.br\ \.br\ Current Date Time: 11/09/2022 08:44:54 \.br\ \.br\Address: [facility] [address] [facility] [address] \.br\Phone: [phone] \.br\ \.br\Primary Care Provider: \.br\Name: AUGUSTINE METZ\.br\Phone: [phone] \.br\ \.br\Thank you for choosing [facility] for your care. You are very important to us. Our goal is to demonstrate our high quality medical care and provide you with a very good patient experience.\.br\ You may receive a survey about our service. Please take the time to complete the survey and return it so we can continue to enhance our service.\.br\ Thank you again for allowing [facility] to care for your medical needs. If you have any questions about your care or follow up information please contact your doctor.\.br\.br\Follow-up Instructions\.br\.br\.br \With: Address: When: \.br\PUJA HOLBROOK, Gastroenterology [address] [facility], [address] [place] [address]\.br\ Business (1) Within Call for Appointment \.br\.br\.br\.br\.br\P [...] ient education materials, if any, will display below\.br\[facility] ENDOSCOPY DEPARTMENT\.br\.br\FOLLOW UP CARE\.br\? For biopsy [...] tarry sto (more content not included)... Normal [facility] OR Nursing Record - Endoon 0 11-09-2022 OR Nursing Record - Endo OR Nursing Record - Endo Summary Primary Physician: PUJA HOLBROOK MD Finalized Date/Time: 11/09/22 08:27:34 Pt. Name: IVANNA TITO Yehuda David/Sex: 1945 Male Med Rec #: [id number] Physician: Financial #: [id number] Pt. Type: A Room/Bed: / Admit/Disch: 11/09/22 06:11:45 - Institution: Case Times - Endo Entry 1 Patient In Room Time 11/09/22 07:43:00 Out Room Time 11/09/22 08:24:00 Anesthesia Facility Times Induction Time 11/09/22 07:48:00 Stop Time 11/09/22 08:15:00 [place] Protocol Yes Completed Surgery Start Time 11/09/22 07:50:00 Stop Time 11/09/22 08:15:00 Last Modified By: Martha aHider RN 11/09/22 08:21:39 Surgical Procedures - Endo [...] Filling defect bile duct Last Modified By: Matrha Haider RN 11/09/22 08:20:19 Case Attendance - Endo Entry 1 Entry 2 Entry 3 Case Attendee YUSEF UMANZOR, PUJA Haider RN, Martha Solomon RN, Minnie Role Performed Surgeon Primary Customer Equipment Engineer Primary Scrub Primary Time In 11/09/22 07:43:00 11/09/22 07:43:00 11/09/22 07:43:00 Time Out 11/09/22 08:24:00 11/09/22 08:24:00 11/09/22 08:24:00 Procedure ERCP(None) ERCP(None) ERCP(None) Last Modified By: Vitaly RN, Martha Haider RN, Martha Barrera RN 11/09/22 08:21:41 11/09/22 08:21:41 11/09/22 08:21:41 Entry 4 Entry 5 Entry 6 Case Attendee Dena GAVIN, Josselin SPRINGER DO, LESLI PALMA, JYOTI Role Performed Customer Equipment Engineer Secondary Anesthesiologist Primary Anesthesia Asst/MANAGER OF HOUSEKEEPING Time In 11/09/22 07:43:00 11/09/22 07:43:00 11/09/22 07:43:00 Time Out 11/09/22 08:24:00 11/09/22 08:24:00 11/09/22 08:24:00 Procedure ERCP(None) ERCP(None) ERCP(None) Last Modified By: Vitaly RN, Martha Haider RN, Martha Barrera RN 11/09/22 [...] 08:23 Martha Haider RN 11/09/22 08:27 Normal [facility] Operative Reporton Operative Report Patient: [...] Notes: Follow-up in clinic as scheduled. Normal [facility] Comment on above: Order Comment: Ida sevilla Attachment [id number] can be viewed in source system Missing Attachment [id number] can be viewed in source system Missing Attachment [id number] can be viewed in source system Missing Attachment [id number] can be viewed in source system Missing Attachment [id number] can be viewed in source system Missing Attachment [id number] can be viewed in source system Result Comment: PACU Phase I - Endoon 2022 PACU Phase I - Endo PACU Phase I - Endo Summary Primary Physician: PUJA HOLBROOK MD Finalized Date/Time: 11/09/22 08:55:35 Pt. Name: TITO GONCALVES/Sex: 1945 Male Med Rec #: [id number] Physician: Financial #: [id number] Pt. Type: A Room/Bed: / Admit/Disch: 11/09/22 06:11:45 - Institution: PACU I Case Times - Endo Entry 1 In PACU I 11/09/22 08:25:00 Ready for Transfer 11/09/22 09:19:00 Last Modified By: Sariah Schreiber RN 11/09/22 08:55:34 Finalized By: Sariah Schreiber RN Document Signatures Signed By: Sariah Schreiber RN 11/09/22 08:55 Normal [facility] POC Glucoseon 11-09-2022 Glucose [Mass/Vol] 131 mg/dL High 72-100 [facility] Comment on above: Performed By: #### 1 [id number] ####[facility] [address] [place] [address] Medical Director: Diogo Carcamo MD Preop - Endoon 11-09-2022 Preop - Endo Preop - Endo Summary Primary Physician: PUJA HOLBROOK MD Finalized Date/Time: 11/09/22 07:13:53 Pt. Name: TITO GONCALVES/Sex: 1945 Male Med Rec #: [id number] Physician: Financial #: [id number] Pt. Type: A Room/Bed: / Admit/Disch: 11/09/22 06:11:45 - Institution: Preop - Case Times - Endo Entry 1 Patient Arrival Time 11/09/22 06:31:00 Patient Ready for 11/09/22 07:11:00 Surgery Report Given to n/a Last Modified By: Kaylyn Bettencourt RN 11/09/22 07:13:51 Finalized By: Kaylyn Bettencourt RN Document Signatures Signed By: Kaylyn Bettencourt RN 11/09/22 07:13 Normal [facility] Provider Letter - Ambulatory on 11-09-2022 Provider Letter - Ambulatory AUGUSTINE METZ, [address] [facility] [address] RE: TITO GONCALVES 11/09/2022 Dear AUGUSTINE METZ [...] - (11/09/2022) GI ERCP with Anesthesia Normal [facility] [place] Protocol/Pre-Proc TimeOut-Texton 11-09-2022 [place] Protocol/Pre-Proc TimeOut-Text [facility] Protocol Entered On: 11/09/2022 7:13 EST Performed [...] is Exempt From Marking Kaylyn Bettencourt RN 11/09/2022 7:09 EST Surgery / Sedation Correct [...] Haider RN - 11/09/2022 7:48 EST Normal [facility] Phone Msgon 11-08-2022 Phone Msg - From: Lori Cintron MA Sent: 11/08/2022 13:03:57 EST Caller Name: IVANNA TITO Yehuda; Caller Number: H Pt called to ask if he should take heart pills prior to procedure with Dr. Angelo 11/09, ERCP. In question: propafenone, carvedilol and benazepril and if he can take them around one hour prior to arrival which would be 5:30am. 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 From: Maia GAVIN, Caren To: Blanca Bazzi; Fela Alexandre; Sent: 10/28/2022 09:50:53 EST Subject: RE: Cardiac Clearance Caller Name: TITO GONCALVES; Caller Number: H He sees Dr. Metz sent LM for pt-Per Dr. Metz, pt can be off his Coumadin 5 days prior to his procedure. Normal [facility] AMB GI Physician Progress No irma 10-26-2022 AMB GI Physician Progress Note Chief Complaint Abdominal pain History of Present Illness 77-year-old male with recurrent history of choledocholithiasis last ERCP was done a year ago in [place] Patient had admission in hospital in [place] with fever and chills Patient has had [...] Est Pt Mod MDM / 30-39 min 98428, 10/26/2022 16:13:00 EST, Abdominal pain / Pancreatic cyst MR CP, 10/26/2022, Routine, PAIN, Abdominal pain / Pancreatic cyst 2. Pancreatic cyst K86.2 Pancreatic cyst stable very low CEA levels suggestive of simple serous cyst versus inflammatory cyst. Asymptomatic Ordered: AMB Follow - Up Appt Amb, 10/26/2022 16:13:00 EST, 4 weeks AMB Office/Outpt Est Pt Mod MDM / 30-39 min 95812, 10/26/2022 16:13:00 EST, Abdominal pain / Pancreatic [...] extended release, 325 mg= 1 caps, ORAL, [id number] trazodone = Desyrel, 50 mg, ORAL, BID [...] Care Team Primary Care Physician AUGUSTINE METZ [phone] Attending Physician PUJA HOLBROOK MD [phone] . Health Maintenance Pending (in the next year) There are no current recommendations pending Satisfied (in the past 1 year) There are no satisfied recommendations within the defined date range Normal [facility] Comprehensive Intake - Texto n [...] in, 183 cm) Body Mass Index Measured Lebanese : 18.85 kg/m2 BSA Lebanese : 1.79 m2 Ht/Wt Measurement Refused by [...] risk situation (congregated living, hemodialysis, infusion clinic, skilled nursing, assisted living, mcc, homeless chcf, etc.)? : No Lori Cintron MA - [...] Abnormal LFTs (liver function tests) (SNOMED CT :146619200 ) Name of Problem: Abnormal LFTs (liver function tests) ; Recorder: Blanca Bazzi; Confirmation: Confirmed ; Classification: Medical ; Code: 401505663 ; Contributor System: PowerChart ; Last Updated: 07/01/2021 12:43 EDT ; Life Cycle Date: 07/01/2021 ; Life Cycle Status: Active ; Vocabulary: SNOMED CT Arthritis (SNOMED CT :3996745 ) Name of Problem: Arthritis ; Recorder: Blanca Bazzi; Confirmation: Confirmed ; Classification: Medical ; Code: 5673898 ; Contributor System: PowerChart ; Last Updated: 07/01/2021 12:43 EDT ; Life Cycle Date: 07/01/2021 ; Life Cycle Status: Active ; Vocabulary: SNOMED CT Choledocholithiasis (SNOMED CT :727211235 ) Name of Problem: Choledocholithiasis ; Recorder: PUJA HOLBROOK MD; Confirmation: Confirmed ; Classification: Medical ; Code: 248601306 ; Contributor System: PowerChart ; Last Updated: 07/01/2021 13:27 EDT ; Life Cycle Date: 07/01/2021 ; Life Cycle Status: Active ; Responsible Provider: PUJA HOLBROOK MD; Vocabulary: SNOMED CT Diabetes (SNOMED CT :423457517 ) Name of Problem: Diabetes ; Recorder: Blanca Bazzi; Confirmation: Confirmed ; Classification: Medical ; Code: 582839533 ; Contributor System: PowerChart ; Last Updated: 07/01/2021 12:43 EDT ; Life Cycle Date: 07/01/2021 ; Life Cycle Status: Active ; Vocabulary: SNOMED CT Gallbladder disease (SNOMED CT :821393158 ) Name of Problem: Gallbladder disease ; Recorder: Blanca Bazzi; Confirmation: Confirmed ; Classification: Medical ; Code: 451582374 ; Contributor System: PowerChart ; Last Updated: 07/01/2021 12:44 EDT ; Life Cycle Date: 07/01/2021 ; Life Cycle Status: Active ; Vocabulary: SNOMED CT GERD (gastroesophageal reflux disease) (SNOMED CT :964175924 ) Name of Problem: GERD (gastroesophageal reflux disease) ; Recorder: Blanca Bazzi; Confirmation: Confirmed ; Classification: Medical ; Code: 106114339 ; Contributor System: [employer] ; Last Updated: 07/01/2021 12:44 EDT ; Life Cycle Date: 07/01/2021 ; Life Cycle Status: Active ; Vocabulary: SNOMED CT Hypertension (SNOMED CT :5578933193 ) Name of Problem: Hypertension ; Recorder: Blanca Bazzi; Confirmation: Confirmed ; Classification: Medical ; Code: 9586063278 ; Contributor System: [employer] ; Last Updated: 07/01/2021 12:44 EDT ; Life Cycle Date: 07/01/2021 ; Life Cycle Status: Active ; Vocabulary: SNOMED CT Irregular heart rhythm (SNOMED CT :879855895 ) Name of Problem: Irregular heart rhythm ; Recorder: Blanca Bazzi; Confirmation: Confirmed ; Classification: Medical (more content not included)... Normal [facility] Provider Letter - Ambulatory on 10-26-2022 Provider Letter - Ambulatory AUGUSTINE METZ, [address] [phone] RE: TITO GONCALVES 10/26/2022 Dear AUGUSTINE METZ [...] - (10/26/2022) *.AMB Office Visit Note Normal [facility] Phone Msgon 10-22-2022 Phone Msg [...] other dilemma is he is leaving for [place] on 11/13 for 6 weeks. From: Caren [...] him until December. He has moved to [facility] and Tito would be considered a new patient. His daughter did not feel he was acutely ill and that he can wait for the appointment next Tuesday. Normal [facility] GLYCOHEMOGLOBIN A1Con 2022 ADA RECOMMENDATION SEE BELOW Normal [facility] Comment on above: Result Comment: ADA RECOMMENDED LIMIT 4.0 - 6.0 ADA THERAPEUTIC TARGET < 7.0 ACTION SUGGESTED > 7.0 Performed By: #### A 1C ####[facility] [address] [place], [place] [address]HgMago Menjivar Glucose [Mass/Vol] 163 mg/dL Normal [facility] Comment on above: Performed By: #### A 1C ####[facility] [address] [place], [place] [address]JiMago Menjivar HbA1c (Bld) [Mass fraction] 7.3 % Critically high 4.5-6.2 [facility] Comment on above: Performed By: #### A 1C ####[facility] [address] [place], [place] [address]SvMago Menjivar Dermatopathologyon Dermatopathology Name: TITO GONCALVES Pathologist: KRISTEN OCONNOR MD Date of Procedure: 09/07/2022 Date Received: 09/07/2022 Date Reported 09/08/2022 Submitting Physician: MACARIO BUI MD, Location: [facility] Copy To/Referring/Attending: MD SABRA SIMS FINAL DIAGNOSIS 3 SLIDES, [facility] #[id number] (BX: 08/03/2022) A. 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 B. SKIN, RIGHT ADVENTISM, SHAVE BIOPSY: MELANOMA IN SITU, PRESENT ON [...] M.D. CANCER SUMMARY REPORT A. 3 SLIDES, [facility] #[id number] (BX: 08/03/2022): SPECIMEN Procedure: Biopsy, shave Specimen Laterality: Right TUMOR Tumor Site: Skin of other and unspecified parts of face: Right caodaism Histologic Type: Melanoma in situ, lentigo maligna [...] ADDITIONAL FINDINGS Additional Findings: None ADDITIONAL TESTING Support Specialist Blocks: Normal Block: None Tumor Block: A1 Electronically Signed Out By KRISTEN OCONNOR MD/LEANDRO Diagnostic interpretation performed at [facility] [address] [id number], [facility] [address] Microscopic Description: A. Microscopic examination reveals nests [...] OTHER Specimens Submitted As: A: 3 SLIDES, [facility] #[id number] (BX: 08/03/2022) Gross Description: Received for consultation from [facility] are three slides labeled [id number] (BX: 08/03/2022) along with the corresponding pathology report. Slide/Block Description 3 SLIDES, [id number]. Keep Slides: N Slides Returned: N Personal Consult: N Normal [facility] Comment on above: Performed By: #### D #### Dermatopathology GLYCOHEMOGLOBIN A1Con 2021 ADA RECOMMENDATION SEE BELOW Normal [facility] Comment on above: Result Comment: ADA RECOMMENDED LIMIT 4.0 - 6.0 ADA THERAPEUTIC TARGET < 7.0 ACTION SUGGESTED > 7.0 Performed By: #### A 1C ####[facility] [address] [place] [address]Dr. Arjun Menjivar Glucose [Mass/Vol] 151 mg/dL Normal [facility] Comment on above: Performed By: #### A 1C ####[facility] [address] [place] [address]DrMago Menjivar HbA1c (Bld) [Mass fraction] 6.9 % Critically high 4.5-6.2 [facility] Comment on above: Performed By: #### A 1C ####[facility] [address] [address]Dr. Arjun Menjivar XR ESOPHAGUSon 06-28-2022 XR ESOPHAGUS [...] PABLO Date: 2022-06-28 14:07 Normal [facility] XR MODIFIED BARIUM SWALLOWon 06-15-2022 XR [...] DC Date: 2022-06-15 11:11 Normal [facility] Ambulatory Visit Summaryon 0 05-03-2022 Ambulatory Visit Summary TITO GONCALVES :1945 Visit Date:05/03/2022 Ambulatory Visit Instructions Your Diagnosis Kidney stone BPH with urinary obstruction Glucosuria Proteinuria Other obstructive and reflux uropathy Your Care Team Attending Physician - GAGE UMANZOR, Mc Blackman Primary Care Physician - BALL DO, AUGUSTINE This Is Your Medications List Contact prescribing [...] [facility] [address], [place] [address]- [phone] Medications What How Much When Instructions Unchanged [...] the si (more content not included)... Normal [facility] Patient Educationon 05-03-20 Patient Education Urology [...] Follow these instructions at home: ? Take sjcf-pks-wrsglsx and prescription medicines only as told by [...] You d (more content not included)... Normal [facility] Urology Office/Clinic Noteon 05-03-2022 Urology Office/Clinic Note Chief Complaint 1 year with KUB HPI Staff Tito is here today for a 1 year follow up with a KUB. KUB done on 04/26/22 at [facility] impression showed no appreciable urinary tract [...] Blackman, URL [facility] [address], [place] [address]- [phone] Additional Instructions: PRN Patient Education Benign Prostatic [...] in lifetim (more content not included)... Normal [facility] Comment on above: Result Comment: Elec tronically Signed By: Mc ALMONTE MD\.br\Date and Time Signed: 05/03/22 09:26 EDT\.br\Electronically Co-Signed By: Jerri Lyles.br\Date and Time Co-Signed: 05/03/22 09:24 EDT [facility] [id number] Normal [facility] XR KUB 1 VIEWon 04-27-2022 XR [...] DC Date: 2022-04-27 06:18 Normal [facility] GLYCOHEMOGLOBIN A1Con 2021 ADA RECOMMENDATION SEE BELOW Normal [facility] Comment on above: Result Comment: ADA RECOMMENDED LIMIT 4.0 - 6.0 ADA THERAPEUTIC TARGET < 7.0 ACTION SUGGESTED > 7.0 Performed By: #### A 1C #### [facility] [address] [place] [address] Dr. Arjun Menjivar Glucose [Mass/Vol] 126 mg/dL Normal [facility] Comment on above: Performed By: #### A 1C #### [facility] [address] [place] [address] Dr. Arjun Menjivar HbA1c (Bld) [Mass fraction] 6.0 % Normal 4.5-6.2 [facility] Comment on above: Performed By: #### A 1C #### [facility] [address] [place] [address] Dr. Arjun Menjivar IRON AND TIBCon 04-07-2022 % SATURATION 25.4 % Normal [facility] Comment on above: Performed By: #### F ETIBC, B12FOL #### [facility] [address] [place] [address] Dr. Arjun Menjivar Iron [Mass/Vol] 62.0 ug/dL Critically low 65.0-175.0 [facility] Comment on above: Performed By: #### F ETIBC, B12FOL #### [facility] [address] [place], [place] [address] Dr. Arjun Menjivar TIBC DIRECT 244.0 ug/dL Critically low 250.0-450. 0 [facility] Comment on above: Performed By: #### F ETIBC, B12FOL #### [facility] [address] [place] [address] Dr. Arjun Menjivar VIT B12 AND FOLATEon 022 Cobalamin (Vitamin B12) [Mass/Vol] 597.0 pg/mL Normal 193.0-986. 0 [facility] Comment on above: Performed By: #### F ETIBC, B12FOL #### [facility] [address] [place] [address] Dr. Arjun Menjivar FOLATE 21.50 ng/mL Normal 8.60-58.90 [facility] Comment on above: Performed By: #### F ETIBC, B12FOL #### [facility] [address] [address] [address] Arjun Menjivar CBCon 03-16-2022 ABSOLUTE BAS 0.0 10*3/uL Normal 0.0-0.2 [facility] Comment on above: Result Comment: Test ing performed at [place] [address] Performed By: #### R ENF ACBC, PT #### [place] [address] ABSOLUTE EOS 0.00 10*3/uL Normal 0.0-0.7 [facility] Comment on above: Performed By: #### R ENF ACBC, PT #### [place] [address] ABSOLUTE NEUTROPHIL COUNT 8.5 10*3/uL High 1.4-6.5 [facility] Comment on above: Performed By: #### R ENF ACBC, PT #### [place] [address] Basophils/100 WBC (Bld) 0.1 % Normal 0.0-2.0 [facility] Comment on above: Performed By: #### R ENF ACBC, PT #### [place] [address] DTYPE AUTO DIFF Normal [facility] Comment on above: Performed By: #### R ENF ACBC, PT #### [place] [address] Eosinophils/100 WBC (Bld) 0.0 % Normal 0.0-11.0 [facility] Comment on above: Performed By: #### R ENF ACBC, PT #### [place] [address] Lymphocytes (Bld) [#/Vol] 0.60 10*3/uL Low 1.2-3.4 [facility] Comment on above: Performed By: #### R ENF ACBC, PT #### Testing performed at [address] [place] [address] Lymphocytes/100 WBC (Bld) 6.4 % Low 20.0-55.0 [facility] Comment on above: Performed By: #### HUGH FARIA, PT #### [place] [address] Monocytes (Bld) [#/Vol] 0.4 10*3/uL Normal 0.0-0.7 [facility] Comment on above: Performed By: #### R LUMA MAGDALENOBC, PT #### [place] [address] Monocytes/100 WBC (Bld) 4.1 % Normal 0.0-10.0 [facility] Comment on above: Performed By: #### HUGH FARIA, PT #### [place] [address] Neutrophils/100 WBC (Bld) 89.4 % High 37.0-75.0 [facility] Comment on above: Performed By: #### HUGH FARIA, PT #### [place] [address] Erythrocyte distribution width (RBC) [Ratio] 17.0 % High 11.5-14.5 [facility] Comment on above: Performed By: #### HUGH FARIA, PT #### [place] [address] Hematocrit (Bld) [Volume fraction] 33.9 % Low 42.0-52.0 [facility] Comment on above: Performed By: #### R ENLUMA KnowlesBC, PT #### [place] [address] Hemoglobin (Bld) [Mass/Vol] 11.7 g/dL Low 14.0-18.0 [facility] Comment on above: Performed By: #### R ENFLUMABC, PT #### [place] [address] MCH (RBC) [Entitic mass] 30.0 pg Normal 26.0-35.0 [facility] Comment on above: Performed By: #### R ENEleni ACBC, PT #### [place] [address] MCHC (RBC) [Mass/Vol] 34.5 g/dL Normal 27.0-37.0 [facility] Comment on above: Performed By: #### R ENF ACBC, PT #### [place] [address] MCV (RBC) [Entitic vol] 87.2 fL Normal 80.0-100.0 [facility] Comment on above: Performed By: #### R RASTA ACBC, PT #### [place] [address] Platelet mean volume (Bld) [Entitic vol] 9.2 fL Normal 7.4-11.0 [facility] Comment on above: Performed By: #### R ENF ACBC, PT #### [place] [address] Platelets (Bld) [#/Vol] 154 10*3/uL Normal 130.0-400. 0 [facility] Comment on above: Performed By: #### R ENF ACBC, PT #### [place] [address] RBC (Bld) [#/Vol] 3.89 10*6/uL Low 4.0-6.1 [facility] Comment on above: Performed By: #### R ENF ACBC, PT #### [place] [address] WBC (Bld) [#/Vol] 9.5 10*3/uL Normal 3.6-11.0 [facility] Comment on above: Performed By: #### R ENF ACBC, PT #### [place] [address] CBC, EDIF, PLATELETon 2021 ABSOLUTE BASOPHIL COUNT 0.0 10*3/uL 0.0 - 0.2 10*3/uL [facility] Comment on above: Testing performed at [facility], [place], [place] [address] Basophils/100 WBC (Bld) 0.1 % 0.0 - 2.0 % [facility] Differential cell count method Nom (Bld) AUTO DIFF % [facility] Eosinophils (Bld) [#/Vol] 0.00 10*3/uL 0.0 - 0.7 10*3/uL [facility] Eosinophils/100 WBC (Bld) 0.0 % 0.0 - 11.0 % [facility] Erythrocyte distribution width (RBC) [Ratio] 17.0 % High 11.5 - 14.5 % [facility] Hematocrit (Bld) [Volume fraction] 33.9 % Low 42.0 - 52.0 % [facility] Hemoglobin (Bld) [Mass/Vol] 11.7 g/dL Low [facility] Interpretation and review of laboratory results Abnormal [facility] Lymphocytes (Bld) [#/Vol] 0.60 10*3/uL Low 1.2 - 3.4 10*3/uL [facility] Lymphocytes/100 WBC (Bld) 6.4 % Low 20.0 - 55.0 % [facility] MCH (RBC) [Entitic mass] 30.0 pg 26.0 - 35.0 PG [facility] MCHC (RBC) [Mass/Vol] 34.5 g/dL [facility] MCV (RBC) [Entitic vol] 87.2 fL [facility] Monocytes (Bld) [#/Vol] 0.4 10*3/uL 0.0 - 0.7 10*3/uL [facility] Monocytes/100 WBC (Bld) 4.1 % 0.0 - 10.0 % [facility] Neutrophils (Bld) [#/Vol] 8.5 10*3/uL High 1.4 - 6.5 10*3/uL [facility] Neutrophils/100 WBC (Bld) 89.4 % High 37.0 - 75.0 % [facility] Platelet mean volume (Bld) [Entitic vol] 9.2 fL [facility] Platelets (Bld) [#/Vol] 154 10*3/uL 130.0 - 400.0 10*3/uL [facility] RBC (Bld) [#/Vol] 3.89 10*6/uL Low 4.0 - 6.1 10*6/uL [facility] WBC (Bld) [#/Vol] 9.5 10*3/uL 3.6 - 11.0 10*3/uL [facility] PROTIMEon 03-16-2022 INR Coag (PPP) [Relative time] 1.37 {INR} High 0.85-1.10 [facility] Comment on above: Result Comment: 2.0-3.0 THERAPEUTIC RANGE 2.5-3.5 MECHANICAL VALVE RANGE Testing performed at [place] [address] Performed By: #### R ENF, ACBC, PT #### [place] [address] PT Coag (PPP) [Time] 16.9 s High 11.8-14.4 [facility] Comment on above: Performed By: #### R ENF, ACBC, PT #### [place] [address] PROTIME-INRon 03-16-2022 INR Coag (PPP) [Relative time] 1.37 {INR} High [facility] Comment on above: 2.0-3.0 THERAPEUTIC RANGE 2.5-3.5 MECHANICAL VALVE RANGE Testing performed at [place] [address] Interpretation and review of laboratory results Abnormal [facility] PT Coag (PPP) [Time] 16.9 s High [facility] RENAL FUNCTION PANELon 03-16 Albumin [Mass/Vol] 3.3 G/dl Low 3.5 - 5.0 G/dl [facility] Calcium [Mass/Vol] 7.9 mg/dL Low [facility] Chloride [Moles/Vol] 106 mmol/L [facility] Comment on above: Please note: Triglyc eride levels of 600mg/dL or higher may positively bias chloride results by approximately 2.1 mmol CO2 [Moles/Vol] 23 mmol/L [facility] Creatinine [Mass/Vol] 1.20 mg/dL [facility] GFR COMMENT Average GFR for 70+ years old = 75. [facility] Comment on above: Chronic Kidney disea se, GFR = <60. Kidney failure, GFR = <15. The GFR estimate is not adjusted for extreme body surface area or acute process, nor has it been validated for women or ethnic groups other than and . Testing performed at [place], [place] [address] GFR/1.73 sq M.predicted among blacks MDRD (S/P/Bld) [Vol rate/Area] 76 mL/min/{1.73_m2} ml/min/1.7 3sq.m [facility] GFR/1.73 sq M.predicted among non-blacks MDRD (S/P/Bld) [Vol rate/Area] 63 mL/min/{1.73_m2} ml/min/1.7 3sq.m [facility] Glucose post fast [Mass/Vol] 230 mg/dL High [facility] Comment on above: NORMAL <100 mg/dL PREDIABETES 101-126 mg/dL DIABETES 126 mg/dL or higher Interpretation and review of laboratory results Abnormal [facility] Phosphate [Mass/Vol] 2.9 mg/dL [facility] Potassium [Moles/Vol] 4.5 mmol/L [facility] Sodium [Moles/Vol] 136 mmol/L Low [facility] Urea nitrogen [Mass/Vol] 22 mg/dL High [facility] RENAL PANEL,FASTINGon 2021 ALBUMIN 3.3 G/dl Low 3.5-5.0 [facility] Comment on above: Performed By: #### R HUGH MAGDALENO, PT #### Testing performed at [facility] [address] [place] [address] Calcium [Mass/Vol] 7.9 mg/dL Low 8.4-10.2 [facility] Comment on above: Performed By: #### R RASTA ACBC, PT #### Testing performed at [facility] [address] [place] [address] Chloride [Moles/Vol] 106 mmol/L Normal 98-107 [facility] Comment on above: Result Comment: Plea se note: Triglyceride levels of 600mg/dL or higher may positively bias chloride results by approximately 2.1 mmol Performed By: #### R HUGH MAGDALENO, PT #### [place] [address] CO2 [Moles/Vol] 23 mmol/L Normal 22-30 [facility] Comment on above: Performed By: #### R HUGH MAGDALENO, PT #### [place] [address] Creatinine [Mass/Vol] 1.20 mg/dL Normal 0.7-1.2 [facility] Comment on above: Performed By: #### HUGH FARIA, PT #### [place] [address] EST. GFR, 76 ml/min/1.73sq.m [facility] Comment on above: Performed By: #### HUGH FARIA, PT #### [place] [address] EST. GFR,Non 63 ml/min/1.73sq.m [facility] Comment on above: Performed By: #### HUGH FARIA, PT #### [place] [address] GFR Information Average GFR for 70+ years old = 75. 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 Kidney failure, GFR = <15. The GFR estimate is not adjusted for extreme body surface area or acute process, nor has it been validated for women or ethnic groups other than and . Testing performed at [address] [address] Performed By: #### HUGH FARIA, PT #### [place] [address] Glucose [Mass/Vol] 230 mg/dL High 70-100 [facility] Comment on above: Result Comment: NORMAL <100 mg/dL PREDIABETES 101-126 mg/dL DIABETES 126 mg/dL or higher Performed By: #### R HUGH MAGDALENO, PT #### [place] [address] PHOSPHOROUS 2.9 MG/DL Normal 2.5-4.5 [facility] Comment on above: Performed By: #### R HUGH MAGDALENO, PT #### [place] [address] Potassium [Moles/Vol] 4.5 mmol/L Normal 3.5-5.1 [facility] Comment on above: Performed By: #### R HUGH MAGDALENO, PT #### [place] [address] Sodium [Moles/Vol] 136 mmol/L Low 137-145 [facility] Comment on above: Performed By: #### R HUGH MAGDALENO, PT #### [place] [address] Urea nitrogen [Mass/Vol] 22 mg/dL High 7-20 [facility] Comment on above: Performed By: #### R HUGH MAGDALENO, PT #### [place] [address] GLUCOSE (POC DEVICE)on 03-15 GLUCOSE, POINT OF CARE [address] [facility] Interpretation and review of laboratory results Abnormal [facility] Operator [id number] [facility] Comment on above: Testing performed at [address] MRSA SCREENon 03-15-2022 MRSA DNA HERIBERTO+probe Ql (Unsp spec) Not detected Normal NOT DETECTED [facility] Comment on above: Performed By: #### M RSAST #### [place] [address] STAPH AUREUS SCREEN Not detected Normal NOT DETECTED [facility] Comment on above: Result Comment: Test ing performed at [address] [place] [address] Performed By: #### M RSAST #### [place] [address] NOVEL CORONAVIRUSon 03-15-20 22 NARRATIVE This test was perfor med using isothermal HERIBERTO and has been approved as Emergency Use Authorization (EUA) for the qualitative detection [id number] nucleic acid. Normal [facility] Comment on above: Result Comment: Test ing performed at [address] [address] Performed By: #### C OVID #### [place] [address] SARS-CoV-2 (COVID-19) RNA HERIBERTO+probe Ql (Unsp spec) Not detected Normal NOT DETECTED [facility] Comment on above: Result Comment: Nega [...] #### C OVID #### [place] [address] NOVEL CORONAVIRUS LAB 1 - NA SOPHARYNGEALon 03-15-2022 NARRATIVE -1 This test was perfor med using isothermal HERIBERTO and has been approved as Emergency Use Authorization (EUA) for the qualitative detection [id number] nucleic acid. [facility] Comment on above: Testing performed at [address] [address] SARS-CoV-2 (COVID-19) RNA HERIBERTO+probe Ql (Unsp spec) Not detected NOT DETECTED [facility] Comment on above: Negative results do [...] patient is critically ill or clinically deteriorating. 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 INSULATION [id number] Normal [facility] Comment on above: Result Comment: Test ing performed at [address] [place] [address] Performed By: #### P OCGLU #### [place] [address] PROTIMEon 03-15-2022 INR Coag (PPP) [Relative time] 1.36 {INR} High 0.85-1.10 [facility] Comment on above: Result Comment: 2.0-3.0 THERAPEUTIC RANGE 2.5-3.5 MECHANICAL VALVE RANGE Testing performed at [address] [address] Performed By: #### P T #### [place] [address] PT Coag (PPP) [Time] 16.8 s High 11.8-14.4 [facility] Comment on above: Performed By: #### P T #### [place] [address] PROTIME-INRon 03-15-2022 INR Coag (PPP) [Relative time] 1.36 {INR} High [facility] Comment on above: 2.0-3.0 THERAPEUTIC RANGE 2.5-3.5 MECHANICAL VALVE RANGE Testing performed at [address] [address] Interpretation and review of laboratory results Abnormal [facility] PT Coag (PPP) [Time] 16.8 s High [facility] PTTon 03-15-2022 aPTT Coag (Bld) [Time] 28.7 s Normal 22.4-34.7 [facility] Comment on above: Result Comment: CARDIAC AND PE/DVT THERAPUTIC RANGE 69-97 SEC VASCULAR/THREATENED LIMB THERAPUTIC RANGE 80-112 SEC Testing performed at [address] [address] Performed By: #### P TT #### [place] [address] aPTT Coag (Bld) [Time] 28.[address] [facility] Comment on above: CARDIAC AND PE/DVT THERAPUTIC RANGE 69-97 SEC VASCULAR/THREATENED LIMB THERAPUTIC RANGE 80-112 SEC Testing performed at [place] [address] [employer]up [employer] SCREEN: MRSA ONLY, NARES (IS OLATION SCREEN)on 03-15-2022 MRSA isol Org specific cx Ql (Nose) Not detected NOT DETECTED [facility] STAPHYOCOCCUS AUREUS BY PCR Not detected NOT DETECTED [facility] Comment on above: Testing performed at [place] [address] [employer] TYPE AND SCREEN CROSSMATCH C ONVERTIBLEon 03-15-2022 TYPE AND SCREEN CROSSMATCH CONVERTIBLE WORKUP EXPIRES 03/18/2022,2359 ABO/RH(D) A POSITIVE ANTIBODY SCREEN NEGATIVE ARM BAND NUMBER [id number] Testing performed at [address] [address] Normal [facility] Comment on above: Performed By: #### T SCC #### [place] [address] TYPE AND SCREEN - POSSIBLE T RANSFUSIONon 03-15-2022 ABO and Rh group Nom (Bld ) Positive [employer] ARM BAND NUMBER [id number] [facility] Testing performed at [place] [address] Integrated biometrics [facility] ugichem Blood group antibody screen Ql Negative [employer] EXPIRATION DATE 03/18/2022,2359 [employer] XR KNEE RIGHT 2 VIEWSon 02-25 XR KNEE RIGHT 2 VIEWS EXAM: XR KNEE RIGH T 2 VIEWS HISTORY: COMPARISON: FINDINGS: Joint replacement is seen with overall preservation of normal alignment. No abnormal lucency is seen around the hardware. IMPRESSION: Joint replacement without hardware complication Normal [facility] XR Knee - right 2 Viewson [...] IMPRESSION IMPRESSION: Joint replacement without hardware complication [facility] Radiology Study observation (narrative) [facility] XR Knee - right 2 ViewsOrder ed By: Abel Resendiz on 03-15-2022 [facility] Work Phone: Operative Reporton Operative Report MR#: [id number] [facility] Pt. Name: Tito Goncalves Room [...] form. 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 [address] [place] [address] A [facility] [id number] Ryan Cardenas M.D. [address] [facility] [address] Normal [facility] Repor ton [...] questions or concerns in the meantime. Normal [facility] Vital Signs Date Time Vital Sign Value Performing Clinician Facility 04-02-2025 10:36-0400 Body height 172.72 cm Augustine Metz DO Work Phone: [facility] 04-02-2025 10:36-0400 Body mass index (BMI) [Ratio] 36 kg/m2 Augustine Metz DO Work Phone: [facility] 04-02-2025 10:36-0400 Body weight 107.55 kg Augustine Ball DO Work Phone: [facility] 04-02-2025 10:36-0400 Diastolic blood pressure 59 mm[Hg] Augustine Ball DO Work Phone: [facility] 04-02-2025 10:36-0400 Heart rate 59 /min Augustine Ball DO Work Phone: [facility] 04-02-2025 10:36-0400 Respiratory rate 12 /min Augustine Ball DO Work Phone: [facility] 04-02-2025 10:36-0400 Systolic blood pressure 106 mm[Hg] Augustine Ball DO Work Phone: [facility] 02-13-2025 11:42-0400 Body height 172.72 cm Augustine Ball DO Work Phone: [facility] 02-13-2025 11:42-0400 Body mass index (BMI) [Ratio] 37.4 kg/m2 Augustine Ball DO Work Phone: [facility] 02-13-2025 11:42-0400 Body weight 111.69 kg Augusitne Ball DO Work Phone: [facility] 02-13-2025 11:42-0400 Diastolic blood pressure 77 mm[Hg] Augustine Ball DO Work Phone: [facility] 02-13-2025 11:42-0400 Heart rate 51 /min Augustine Ball DO Work Phone: [facility] 02-13-2025 11:42-0400 Respiratory rate 12 /min Augustine Ball DO Work Phone: [facility] 02-13-2025 11:42-0400 Systolic blood pressure 146 mm[Hg] Augustine Ball DO Work Phone: [facility] 01-09-2025 09:57-0400 Body height 172.72 cm Augustine Ball DO Work Phone: [facility] 01-09-2025 09:57-0400 Body mass index (BMI) [Ratio] 37.7 kg/m2 Augustine Ball DO Work Phone: [facility] 01-09-2025 09:57-0400 Body weight 112.6 kg Augustine Ball DO Work Phone: [facility] 01-09-2025 09:57-0400 Diastolic blood pressure 85 mm[Hg] Augustine Ball DO Work Phone: [facility] 01-09-2025 09:57-0400 Heart rate 58 /min Augustine Ball DO Work Phone: [facility] 01-09-2025 09:57-0400 Respiratory rate 12 /min Augustine Ball DO Work Phone: [facility] 01-09-2025 09:57-0400 Systolic blood pressure 135 mm[Hg] Augustine Ball DO Work Phone: [facility] 01-01-2025 10:01-0400 Body height 182.9 cm Augustine Murcek DO Work Phone: [facility] 01-01-2025 10:01-0400 Body mass index (BMI) [Ratio] 33.91 kg/m2 Augustine Murcek DO Work Phone: [facility] 01-01-2025 10:01-0400 Body weight 113.4 kg Augustine Murcek DO Work Phone: [facility] 10-30-2024 09:49-0500 Body height 182.9 cm Augustine Murcek DO Work Phone: [facility] 10-30-2024 09:49-0500 Body mass index (BMI) [Ratio] 33.91 kg/m2 Augustine Murcek DO Work Phone: [facility] 10-30-2024 09:49-0500 Body weight 113.4 kg Augustine Murcek DO Work Phone: [facility] 10-22-2024 11:30-0500 Diastolic blood pressure 66 mm[Hg] Augustine Ball DO Work Phone: [facility] 10-22-2024 11:30-0500 Heart rate 52 /min Augustine Ball DO Work Phone: [facility] 10-22-2024 11:30-0500 Respiratory rate 14 /min Augustine Ball DO Work Phone: [facility] 10-22-2024 11:30-0500 SaO2% (BldA) [Mass fraction] 94 % Augustine Ball DO Work Phone: [facility] 10-22-2024 11:30-0500 Systolic blood pressure 119 mm[Hg] Augustine Ball DO Work Phone: [facility] 10-22-2024 10:55-0500 Inhaled oxygen flow rate 0 L/min Augustine Ball DO Work Phone: [facility] 10-22-2024 10:25-0500 Body temperature 97.5 [degF] Augustine Ball DO Work Phone: [facility] 10-22-2024 07:25-0500 Body height 182.88 cm Augustine Ball DO Work Phone: [facility] 10-22-2024 07:25-0500 Body weight 111.4 kg Augustine Ball DO Work Phone: [facility] 10-17-2024 13:34-0500 Body height 182.9 cm Augustine Omercek DO Work Phone: [facility] 10-17-2024 13:34-0500 Body mass index (BMI) [Ratio] 33.91 kg/m2 Augustine Murcek DO Work Phone: [facility] 10-17-2024 13:34-0500 Body weight 113.4 kg Augustine Murcek DO Work Phone: [facility] 10-16-2024 12:55-0500 Diastolic blood pressure 64 mm[Hg] Christin Bolton MD Work Phone: [facility] 10-16-2024 12:55-0500 Systolic blood pressure 140 mm[Hg] Christin Bolton MD Work Phone: [facility] 10-10-2024 08:38-0500 Body height 172.72 cm [facility] 10-10-2024 08:38-0500 Body mass index (BMI) [Ratio] 37.3 kg/m2 [facility] 10-10-2024 08:38-0500 Body weight 111.18 kg [facility] 10-10-2024 08:38-0500 Diastolic blood pressure 70 mm[Hg] [facility] 10-10-2024 08:38-0500 Heart rate 62 /min [facility] 10-10-2024 08:38-0500 Respiratory rate 12 /min [facility] 10-10-2024 08:38-0500 Systolic blood pressure 127 mm[Hg] [facility] 10-03-2024 08:09-0500 Body height 182.9 cm Kingston Anat DO Work Phone: [facility] 10-03-2024 08:09-0500 Body mass index (BMI) [Ratio] 34.23 kg/m2 Kingston Anat DO Work Phone: [facility] 10-03-2024 08:09-0500 Body weight 114.49 kg Kingston Anat DO Work Phone: [facility] 10-03-2024 08:09-0500 Diastolic blood pressure 82 mm[Hg] Kingston Anat DO Work Phone: [facility] 10-03-2024 08:09-0500 Heart rate 62 /min Kingston Anat DO Work Phone: [facility] 10-03-2024 08:09-0500 SaO2% (BldA) [Mass fraction] 95 % Kingston Anat DO Work Phone: [facility] 10-03-2024 08:09-0500 Systolic blood pressure 132 mm[Hg] Kingston Anat DO Work Phone: [facility] 08-21-2024 09:22-0500 Body height 172.72 cm [facility] 08-21-2024 09:22-0500 Body mass index (BMI) [Ratio] 37.5 kg/m2 [facility] 08-21-2024 09:22-0500 Body weight 112.15 kg [facility] 08-21-2024 09:22-0500 Diastolic blood pressure 70 mm[Hg] [facility] 08-21-2024 09:22-0500 Heart rate 62 /min [facility] 08-21-2024 09:22-0500 Respiratory rate 12 /min [facility] 08-21-2024 09:22-0500 Systolic blood pressure 123 mm[Hg] [facility] 07-09-2024 08:50-0400 Body height 172.72 cm [facility] 07-09-2024 08:50-0400 Body mass index (BMI) [Ratio] 37.1 kg/m2 [facility] 07-09-2024 08:50-0400 Body weight 110.78 kg [facility] 07-09-2024 08:50-0400 Diastolic blood pressure 79 mm[Hg] [facility] 07-09-2024 08:50-0400 Heart rate 65 /min [facility] 07-09-2024 08:50-0400 Respiratory rate 12 /min [facility] 07-09-2024 08:50-0400 Systolic blood pressure 151 mm[Hg] [facility] 06-27-2024 08:54-0400 Body height 182.9 cm Simran Muniz TRANSPORT AIDE Work Phone: [facility] 06-27-2024 08:54-0400 Body mass index (BMI) [Ratio] 33.23 kg/m2 Simran Muniz TRANSPORT AIDE Work Phone: [facility] 06-27-2024 08:54-0400 Body weight 111.13 kg Simran Muniz TRANSPORT AIDE Work Phone: [facility] 06-27-2024 08:54-0400 Diastolic blood pressure 70 mm[Hg] Simran Muniz TRANSPORT AIDE Work Phone: [facility] 06-27-2024 08:54-0400 Heart rate 56 /min Simran Muniz TRANSPORT AIDE Work Phone: [facility] 06-27-2024 08:54-0400 SaO2% (BldA) [Mass fraction] 92 % Simran Muniz TRANSPORT AIDE Work Phone: [facility] 06-27-2024 08:54-0400 Systolic blood pressure 136 mm[Hg] Simran Muniz TRANSPORT AIDE Work Phone: [facility] 06-04-2024 11:14-0400 Body height 172.72 cm [facility] 06-04-2024 11:14-0400 Body mass index (BMI) [Ratio] 37.1 kg/m2 [facility] 06-04-2024 11:14-0400 Body weight 110.78 kg [facility] 06-04-2024 11:14-0400 Diastolic blood pressure 70 mm[Hg] [facility] 06-04-2024 11:14-0400 Heart rate 68 /min [facility] 06-04-2024 11:14-0400 Respiratory rate 18 /min [facility] 06-04-2024 11:14-0400 SaO2% (BldA) [Mass fraction] 99 % [facility] 06-04-2024 11:14-0400 Systolic blood pressure 130 mm[Hg] [facility] 04-04-2024 11:19-0400 Body height 172.72 cm DO Augustine Ball Work Phone: [facility] 04-04-2024 11:19-0400 Body mass index (BMI) [Ratio] 36.6 kg/m2 DO Augustine Ball Work Phone: [facility] 04-04-2024 11:19-0400 Body weight 109.37 kg DO Augustine Ball Work Phone: [facility] 04-04-2024 11:19-0400 Diastolic blood pressure 77 mm[Hg] DO Augustine Ball Work Phone: [facility] 04-04-2024 11:19-0400 Heart rate 55 /min DO Augustine Ball Work Phone: [facility] 04-04-2024 11:19-0400 Respiratory rate 12 /min DO Augustine Ball Work Phone: [facility] 04-04-2024 11:19-0400 Systolic blood pressure 151 mm[Hg] DO Augustine Ball Work Phone: [facility] 02-27-2024 09:21-0400 Body height 172.72 cm DO Augustine Ball Work Phone: [facility] 02-27-2024 09:21-0400 Body mass index (BMI) [Ratio] 36.7 kg/m2 DO Augustine Ball Work Phone: [facility] 02-27-2024 09:21-0400 Body weight 109.48 kg DO Augustine Ball Work Phone: [facility] 02-27-2024 09:21-0400 Diastolic blood pressure 72 mm[Hg] DO Augustine Ball Work Phone: [facility] 02-27-2024 09:21-0400 Heart rate 60 /min DO Augustine Ball Work Phone: [facility] 02-27-2024 09:21-0400 Respiratory rate 12 /min DO Augustine Ball Work Phone: [facility] 02-27-2024 09:21-0400 Systolic blood pressure 152 mm[Hg] DO Augustine Ball Work Phone: [facility] 02-24-2024 17:02-0400 Diastolic blood pressure 70 mm[Hg] DO Augustine Ball Work Phone: [facility] 02-24-2024 17:02-0400 Heart rate 55 /min DO Augustine Ball Work Phone: [facility] 02-24-2024 17:02-0400 Respiratory rate 16 /min DO Augustine Ball Work Phone: [facility] 02-24-2024 17:02-0400 SaO2% (BldA) [Mass fraction] 97 % DO Augustine Ball Work Phone: [facility] 02-24-2024 17:02-0400 Systolic blood pressure 132 mm[Hg] DO Augustine Ball Work Phone: [facility] 02-24-2024 16:20-0400 Body temperature 98 [degF] DO Augustine Ball Work Phone: [facility] 02-24-2024 15:55-0400 Inhaled oxygen flow rate 8 L/min DO Augustine Ball Work Phone: [facility] 02-24-2024 15:38-0400 Body height 182.88 cm DO Augustine Ball Work Phone: [facility] 02-24-2024 15:38-0400 Body mass index (BMI) [Ratio] 32.5 kg/m2 DO Augustine Ball Work Phone: [facility] 02-24-2024 15:38-0400 Body weight 109 kg DO Augustine Ball Work Phone: [facility] 01-31-2024 15:34-0400 Body height 181.61 cm [facility] 01-31-2024 15:34-0400 Body mass index (BMI) [Ratio] 34.5 kg/m2 [facility] 01-31-2024 15:34-0400 Body weight 114.07 kg [facility] 01-31-2024 15:34-0400 Diastolic blood pressure 79 mm[Hg] [facility] 01-31-2024 15:34-0400 Heart rate 53 /min [facility] 01-31-2024 15:34-0400 Respiratory rate 12 /min [facility] 01-31-2024 15:34-0400 Systolic blood pressure 130 mm[Hg] [facility] 10-31-2023 10:30-0500 Body height Augustine Ball Other [employer] Other 10-31-2023 10:30-0500 Body mass index (BMI) [Ratio] 33.47 kg/m2 Augustine Ball Other [employer] Other 10-31-2023 10:30-0500 Body weight 110.41 kg Augustine Ball Other [employer] Other 10-31-2023 10:30-0500 Diastolic blood pressure 68 mm[Hg] Augustine Ball Other [employer] Other 10-31-2023 10:30-0500 Respiratory rate 12 /min Augustine Ball Other [employer] Other 10-31-2023 10:30-0500 Systolic blood pressure 122 mm[Hg] Augustine Ball Other [employer] Other 03-16-2023 11:19-0400 Body height 182.9 cm Azul Andrewsey CAPTAIN CANNERY TENDER-RECLAMATION KETTLE TENDER Work Phone: [employer] 03-16-2023 11:19-0400 Body mass index (BMI) [Ratio] 33.23 kg/m2 [employer]ul [employer] CAPTAIN CANNERY TENDER-RECLAMATION KETTLE TENDER Work Phone: [facility] 03-16-2023 11:19-0400 Body temperature 97.2 [degF] Azul [employer] CAPTAIN CANNERY TENDER-RECLAMATION KETTLE TENDER Work Phone: [facility] 03-16-2023 11:19-0400 Body weight 111.13 kg Azul [employer] CAPTAIN CANNERY TENDER-RECLAMATION KETTLE TENDER Work Phone: [facility] 01-05-2023 12:00-0400 Body height Augustine Ball Other [employer] Other 01-05-2023 12:00-0400 Body mass index (BMI) [Ratio] 33.36 kg/m2 Augustine Ball Other [employer] Other 01-05-2023 12:00-0400 Body weight 110.04 kg Augustine Ball Other [employer] Other 01-05-2023 12:00-0400 Diastolic blood pressure 70 mm[Hg] Augustine Ball Other [employer] Other 01-05-2023 12:00-0400 Respiratory rate 12 /min Augustine Ball Other [employer] Other 01-05-2023 12:00-0400 Systolic blood pressure 118 mm[Hg] Augustine Ball Other [employer] Other 10-04-2022 12:00-0500 Body height Augustine Ball Other [employer] Other 10-04-2022 12:00-0500 Body mass index (BMI) [Ratio] 33.44 kg/m2 Augustine Ball Other [employer] Other 10-04-2022 12:00-0500 Body weight 110.32 kg Augustine Ball Other [employer] Other 10-04-2022 12:00-0500 Diastolic blood pressure 78 mm[Hg] Augustine Ball Other [employer] Other 10-04-2022 12:00-0500 Respiratory rate 12 /min Augustine Ball Other [employer] Other 10-04-2022 12:00-0500 Systolic blood pressure 128 mm[Hg] Augustine Ball Other [employer] Other 10-01-2022 08:30-0500 Diastolic blood pressure 77 mm[Hg] [facility] 10-01-2022 08:30-0500 Systolic blood pressure 132 mm[Hg] [facility] 07-08-2022 11:47-0400 Body height 182.9 cm Pastor Bedoya MD Work Phone: [facility] 07-08-2022 11:47-0400 Body mass index (BMI) [Ratio] 33.23 kg/m2 Pastor Bedoya MD Work Phone: [facility] 07-08-2022 11:47-0400 Body weight 111.13 kg Pastor Bedoya MD Work Phone: [facility] 05-03-2022 08:48-0400 Blood Pressure Location [facility] 05-03-2022 08:48-0400 Diastolic blood pressure 67 mm[Hg] [facility] 05-03-2022 08:48-0400 Heart rate 70 /min [facility] 05-03-2022 08:48-0400 Respiratory rate 16 /min [facility] 05-03-2022 08:48-0400 Systolic blood pressure 120 mm[Hg] [facility] 04-08-2022 09:49-0400 Body height 182.9 cm Azul Rachel APRN-RECLAMATION KETTLE TENDER Work Phone: [facility] 04-08-2022 09:49-0400 Body mass index (BMI) [Ratio] 33.23 kg/m2 Azul Rachel APRN-RECLAMATION KETTLE TENDER Work Phone: [facility] 04-08-2022 09:49-0400 Body temperature 96.91 [degF] Azul Rachel CAPTAIN CANNERY TENDER-RECLAMATION KETTLE TENDER Work Phone: [facility] 04-08-2022 09:49-0400 Body weight 111.13 kg Azul Rachel CAPTAIN CANNERY TENDER-RECLAMATION KETTLE TENDER Work Phone: [facility] 03-16-2022 11:00-0400 Body temperature 97.7 [degF] Pastor Bedoya MD Work Phone: [facility] 03-16-2022 11:00-0400 Diastolic blood pressure 70 mm[Hg] Pastor Bedoya MD Work Phone: [facility] 03-16-2022 11:00-0400 Heart rate 77 /min Pastor Bedoya MD Work Phone: [employer] [facility] 03-16-2022 11:00-0400 Respiratory rate 14 /min Pastor Bedoya MD Work Phone: [employer] [facility] 03-16-2022 11:00-0400 SaO2% (BldA) [Mass fraction] 96 % Pastor Bedoya MD Work Phone: [facility] 03-16-2022 11:00-0400 Systolic blood pressure 142 mm[Hg] Pastor Bedoya MD Work Phone: [facility] 03-15-2022 09:00-0400 Body height 182.9 cm Pastor Bedoya MD Work Phone: [facility] 03-15-2022 09:00-0400 Body mass index (BMI) [Ratio] 31.73 kg/m2 Pastor Bedoya MD Work Phone: [facility] 03-15-2022 09:00-0400 Body weight 106.14 kg Pastor Bedoya MD Work Phone: [facility] 2022 12:57-0400 Body height 182.9 cm Pastor Bedoya MD Work Phone: [facility] 2022 12:57-0400 Body mass index (BMI) [Ratio] 33.23 kg/m2 Pastor Bedoya MD Work Phone: [facility] 2022 12:57-0400 Body temperature 97.2 [degF] Pastor Bedoya MD Work Phone: [facility] 2022 12:57-0400 Body weight 111.13 kg Pastor Bedoya MD Work Phone: [facility] 11-04-2021 14:30-0500 Body height Carmen Kahn Other [employer] Other 03-20-2020 11:06-0400 BMI (Body Mass Index) 33.63 kg/m2 [facility] 03-20-2020 11:06-0400 Body Temperature 97.5 [degF] [facility] 03-20-2020 11:06-0400 Body weight 112.49 kg [facility] 03-20-2020 11:06-0400 Height 182.9 cm [facility] [employer] 1945 00:00-0500 >na< Damari Rojas Dept. of Dermato logy Encounters Encounter Date Encounter Type Care Provider Facility Start: 04-02-2025 End: 04-02-2025 ambulatory Augustine Metz DO Work Phone: [facility] Work Phone: Start: 04-02-2025 End: 04-02-2025 Patient encounter procedure Augustine Metz DO -[facility] Work Phone: Start: 02-22-2025 Non-patient / Non-visit Augustine garcia [facility] Work Phone: Start: 02-13-2025 End: 02-13-2025 Patient encounter procedure Augustine Metz DO -[facility] Work Phone: Start: 02-12-2025 Non-patient / Non-visit ESTHER Jose RA, PP [facility] Work Phone: Start: 02-07-2025 Non-patient / Non-visit Lisa Finnegan CMA -[facility] Work Phone: Start: 02-07-2025 Non-patient / Non-visit ESTHERAMELIA Jose RA, PP DO -[facility] Work Phone: Start: 02-06-2025 Non-patient / Non-visit Krzysztof Hogan DO -[facility] Work Phone: Start: 01-11-2025 End: 01-11-2025 ambulatory [facility] Start: 01-11-2025 Non-patient / Non-visit Maggy valero -[facility] Work Phone: Start: 01-09-2025 End: 01-09-2025 ambulatory [facility] Work Phone: [facility] Work Phone: Start: 01-09-2025 End: 01-09-2025 Patient encounter procedure Washington Isaías DO Work Phone: [facility] Work Phone: Start: 01-03-2025 End: 01-03-2025 [employer] Osman Shah CAPTAIN CANNERY TENDER-RECLAMATION KETTLE TENDER Work Phone: [facility] Start: 01-03-2025 End: 01-03-2025 Bamboo flowsheet Osman Shah CAPTAIN CANNERY TENDER-RECLAMATION KETTLE TENDER Work Phone: [facility] Start: 01-03-2025 End: 01-03-2025 Office outpatient visit 15 minutes Osman Shah CAPTAIN CANNERY TENDER-RECLAMATION KETTLE TENDER Work Phone: [facility] Comment on [...] Augustine Freitas DO Work Phone: [facility] Start: 01-01-2025 End: 01-01-2025 Bamboo flowsheet Augustine Freitas DO Work Phone: [facility] Start: 01-01-2025 End: 01-01-2025 Postop follow up visit related to original px Augustine W Omercek DO Work Phone: [facility] Comment [...] visit related to original px Augustine W Murcek DO Work Phone: [facility] Comment on [...] surgery center Augustine Metz DO Work Phone: [facility] Start: 10-22-2024 End: 10-22-2024 ambulatory Augustine Metz DO Work Phone: [facility] Work Phone: Start: 10-17-2024 End: 10-17-2024 Patient encounter procedure Augustine Metz DO Work Phone: [facility] Work Phone: Start: 10-17-2024 End: 10-17-2024 ambulatory Augustine Metz DO Work Phone: [facility] Work Phone: Start: 10-17-2024 Encounter for preprocedural laboratory examination Augustine Zena [facility] Start: 10-17-2024 End: 10-17-2024 Bamboo flowsheet Augustine Freitas DO Work Phone: [facility] Start: 10-17-2024 End: 10-17-2024 Bamboo flowsheet Augustine [...] Not Available Start: 10-10-2024 End: 10-10-[address] [facility] Work Phone: Start: 10-10-2024 End: 10-10-2024 Patient encounter procedure [facility] Work Phone: Start: 10-04-2024 End: 10-04-2024 Patient encounter procedure Osman A Felter CAPTAIN CANNERY TENDER-RECLAMATION KETTLE TENDER Work Phone: [facility] Comment on above: Neoplasm of unspecif ied behavior of bone, soft tissue, and skin (Primary Dx) Start: 10-04-2024 End: 10-04-2024 Bamboo flowsheet Osman A Felter CAPTAIN CANNERY TENDER-RECLAMATION KETTLE TENDER Work Phone: [facility] Start: 10-04-2024 End: 10-04-2024 Bamboo flowsheet Osman A Felter CAPTAIN CANNERY TENDER-RECLAMATION KETTLE TENDER Work Phone: [facility] Start: 10-04-2024 End: 10-04-2024 ambulatory OSMAN A FELTER Not Available Start: 10-03-2024 End: 10-03-2024 Bamboo flowsheet Kingston Coppola DO Work Phone: [facility] Start: 10-03-2024 End: 10-03-2024 Bamboo flowsheet Kingston Coppola DO Work Phone: [facility] Start: 10-03-2024 End: 10-03-2024 Office outpatient visit 25 minutes Kingston Coppola DO Work Phone: [facility] Comment on above: CUBA (obstructive sle ep apnea) (Primary Dx); PLMD (periodic limb movement disorder); Daytime hypersomnolence; Snoring; Primary insomnia Start: 10-03-2024 End: 10-03-2024 ambulatory KINGSTON COPPOLA Not Available Start: 09-07-2024 End: 09-07-2024 Bamboo flowsheet Jose R Dodd DO Work Phone: [facility] Start: 09-07-2024 End: 09-07-2024 Bamboo flowsheet Jose R Dodd DO Work Phone: [facility] Start: 09-07-2024 End: 09-07-2024 ambulatory JOSE R DODD Not Available Start: 08-21-2024 End: 08-21-2024 Patient encounter procedure [facility] Work Phone: Start: 08-14-2024 Non-patient / Non-visit [facility] Work Phone: Start: 08-14-2024 Non-patient / Non-visit [facility] Work Phone: Start: 07-11-2024 End: 07-11-2024 ambulatory [facility] Start: 07-09-2024 Patient encounter procedure [facility] Start: 07-09-2024 End: 07-09-[address] [facility] Work Phone: Start: 07-09-2024 End: 07-09-2024 Patient encounter procedure [facility] Work Phone: Start: 06-27-2024 End: 06-27-2024 Bamboo flowsheet Simran Muniz TRANSPORT AIDE Work Phone: [facility] Start: 06-27-2024 End: 06-27-2024 Bamboo flowsheet Simran Muniz TRANSPORT AIDE Work Phone: [facility] Start: 06-27-2024 Non-patient / Non-visit [facility] Work Phone: Start: 06-27-2024 End: 06-27-2024 Office outpatient visit 25 minutes Simran Muniz TRANSPORT AIDE Work Phone: [facility] Comment on above: PLMD (periodic limb movement disorder) (Primary Dx); CUBA (obstructive sleep apnea); Daytime hypersomnolence; Primary insomnia; Snoring Start: 06-27-2024 End: 06-27-2024 ambulatory SIMRAN MUNIZ Not Available Start: 06-19-2024 End: 06-19-2024 Bamboo flowsheet Osman Shah CAPTAIN CANNERY TENDER-RECLAMATION KETTLE TENDER Work Phone: [facility] Start: 06-19-2024 End: 06-19-2024 Bamboo flowsheet Osman Jose Felter CAPTAIN CANNERY TENDER-RECLAMATION KETTLE TENDER Work Phone: [facility] Start: 06-19-2024 End: 06-19-2024 Office outpatient visit 15 minutes Osman Shah CAPTAIN CANNERY TENDER-RECLAMATION KETTLE TENDER Work Phone: [facility] Comment on above: Seborrheic keratosis ; Melanocytic nevus of trunk; Lentigines; Capillary angioma; Telangiectasia of face; Actinic keratosis; Seborrheic keratosis, inflamed; History of malignant melanoma of skin Start: 06-19-2024 End: 06-19-2024 ambulatory OSMAN SHAH Not Available Start: 06-08-2024 End: 06-08-2024 Bamboo flowsheet Jose R Dodd DO Work Phone: [facility] Start: 06-08-2024 End: 06-08-2024 Bamboo flowsheet Jose R Dodd DO Work Phone: [facility] Start: 06-08-2024 End: 06-08-2024 ambulatory JOSE R DODD Not Available Start: 06-04-2024 End: 06-04-[address] [facility] Work Phone: Start: 06-04-2024 End: 06-04-2024 Patient encounter procedure [facility] Work Phone: Start: 05-16-2024 End: 05-16-2024 ambulatory DO Augustine Ball Work Phone: [facility] Work Phone: Start: 05-16-2024 End: 05-16-2024 Patient encounter procedure DO Augustine Ball Work Phone: [facility] Work Phone: Start: 04-18-2024 Non-patient / Non-visit DO Alo louann Ball Work Phone: [facility] Work Phone: Start: 04-12-2024 End: 04-12-2024 ambulatory E[facility] Start: 04-04-2024 End: 04-04-2024 ambulatory AUGUSTINE FREITAS Not Available Start: 04-04-2024 End: 04-04-2024 ambulatory DO Augustine Ball Work Phone: [facility] Work Phone: Start: 04-04-2024 End: 04-04-2024 Patient encounter procedure DO Augustine Ball Work Phone: [facility] Work Phone: Start: 04-02-2024 Non-patient / Non-visit [facility] Work Phone: Start: 04-02-2024 Non-patient / Non-visit DO Alo louann Ball Work Phone: [facility] Work Phone: Start: 04-01-2024 Non-patient / Non-visit DO Alo louann Ball Work Phone: [facility] Work Phone: Start: 03-22-2024 End: 03-22-2024 ambulatory OLIVER CHAPMANOLIVERCURLY [facility] Start: 03-16-2024 End: 03-16-2024 ambulatory MADISON PAUL [facility] Start: 03-09-2024 End: 03-09-2024 ambulatory JOSE R DODD Not Available Start: 03-06-2024 End: 03-06-2024 ambulatory AUGUSTINE Kelsey OMERCATHLEENK Not Available Start: 02-27-2024 End: 02-27-2024 ambulatory AUGUSTINE W MURCATHLEENK Not Available Start: 02-27-2024 End: 02-27-2024 ambulatory DO Augustine Ball Work Phone: [facility] Work Phone: Start: 02-27-2024 End: 02-27-2024 Patient encounter procedure DO Augustine Ball Work Phone: [facility] Work Phone: Start: 02-24-2024 End: 02-24-2024 Admission to same day surgery center DO Augustine Ball Work Phone: [facility] Start: 02-24-2024 End: 02-24-2024 ambulatory DO Augustine Ball Work Phone: [facility] Work Phone: Start: 02-16-2024 End: 02-16-2024 Patient encounter procedure DO Augustine Ball Work Phone: [facility] Work Phone: Start: 02-16-2024 End: 02-16-2024 ambulatory DO Augustine Ball Work Phone: [facility] Work Phone: Start: 02-16-2024 Encounter for preprocedural cardiovascular examination Augustine Freitas [facility] Start: 02-15-2024 End: 02-15-2024 ambulatory AUGUSTINE TERRELLK Not Available Start: 02-15-2024 End: 02-15-2024 ambulatory CHRISTIN BOLTON Not Available Start: 02-09-2024 End: 02-09-2024 ambulatory MADISON PAUL [facility] Start: 01-31-2024 End: 01-31-[address] [facility] Work Phone: Start: 01-31-2024 End: 01-31-2024 Patient encounter procedure [facility] Work Phone: Start: 01-31-2024 Non-patient / Non-visit [facility] Work Phone: Start: 01-29-2024 [facility] Start: 01-27-2024 [facility] and management of inpatient [facility] Start: 01-26-2024 Evaluation and management of inpatient [facility] Start: 01-26-2024 Evaluation and management of inpatient [facility] Start: 01-25-2024 Evaluation and management of inpatient [facility] Start: 01-25-2024 Evaluation and management of inpatient [facility] Start: 01-25-2024 Evaluation and management of inpatient [facility] Start: 01-25-2024 Evaluation and management of inpatient [facility] Start: 01-25-2024 Evaluation and management of inpatient [facility] Start: 01-24-2024 End: 01-29-2024 Evaluation and management of inpatient [facility] Start: 01-18-2024 Non-patient / Non-visit [facility] Work Phone: Start: 01-10-2024 End: 01-10-2024 ambulatory OSMAN SHAH Not Available Start: 12-16-2023 Non-patient / Non-visit [facility] Work Phone: Start: 11-01-2023 End: 11-01-2023 ambulatory Augustine Metz Other [employer] Other Start: 11-01-2023 Telephone encounter Augustine Metz [facility] Start: 10-31-2023 End: 10-31-2023 ambulatory Augustine Metz Other [employer] Other Start: 10-31-2023 Office outpatient vi sit 25 minutes Augustine Metz [facility] Start: 10-28-2023 Bamboo Social[employer] Jose R Samira Green hler DO Work Phone: [facility] Start: 10-28-2023 [employer]amboo [employer] Jose R Green hler DO Work Phone: [facility] Start: 07-11-2023 End: 07-11-2023 ambulatory Augustine Metz Other [employer] Other Start: 07-11-2023 Telephone encounter Augustine Metz [facility] Start: 07-10-2023 End: 07-10-2023 ambulatory Augustine Metz Other [employer] Other Start: 07-10-2023 Telephone encounter Augustine Metz [facility] Start: 07-05-2023 End: 07-05-2023 Emergency department patient visit Augustine Metz Facility:[facility] Start: 03-16-2023 ambulatory AZUL RACHEL [facility] Start: 03-16-2023 End: 03-16-2023 Office outpatient visit 15 minutes Azul Rachel APRN-RECLAMATION KETTLE TENDER Work Phone: [facility] Comment on above: Hx of total knee art hroplasty, right (Primary Dx) Start: 03-16-2023 End: 03-16-2023 Subsequent hospital visit by physician Azul Rachel APRN-RECLAMATION KETTLE TENDER Work Phone: [facility] Start: 02-01-2023 ambulatory AUGUSTINE METZ Facilit y:[email or web address] Start: 01-24-2023 End: 02-23-2023 ambulatory SHAIKH Tiburcio PRICE Facility:H1 Start: 01-22-2023 End: 01-22-2023 ambulatory Augustine Metz Other [employer] Other Start: 01-22-2023 Telephone encounter Augustine Metz FP [facility] Start: 2023 End: 01-22-[address] AUGUSTINE METZ Facility:H1 Start: 01-05-2023 End: 01-05-2023 ambulatory Augustine Metz Other [employer] Other Start: 01-05-2023 Office outpatient vi sit 25 minutes Augustine Metz [facility] Start: 12-27-2022 End: 2023 ambulatory SHAIKH Tiburcio PRICE Facility:H1 Start: 11-24-2022 End: 12-24-2022 ambulatory SHAIKH Tiburcio PRICE Facility:H1 Start: 11-10-2022 End: 11-10-2022 ambulatory Augustine Metz Other [employer] Other Start: 11-10-2022 Telephone encounter Augustine Metz FP [facility] Start: 11-09-2022 Telephone encounter Augustine Metz FP [facility] Start: 11-09-2022 End: 11-10-2022 ambulatory AUGUSTINE Ramirez ISAÍAS [facility] [employer] Other Start: 11-08-2022 ambulatory AUGUSTINE METZ Facilit [...] 10-04-2022 End: 10-04-2022 ambulatory Augustine Metz Other [employer] Other Start: 10-04-2022 Office outpatient vi sit 25 minutes Augustine [facility] Start: 10-01-2022 ambulatory Ms. Osman Shah Facility:[id number] Start: 09-27-2022 End: 10-27-2022 ambulatory SHAIKH Tiburcio PRICE Facility:H1 Start: 09-14-2022 Damari Rojas Dept. of D ermatology Start: 09-09-2022 Pre-procedure evaluation check Augustine Metz Other [employer] Other Start: 09-07-[address] Macario Bui Facility:[id number] Start: 08-26-2022 End: 09-26-2022 ambulatory SHAIKH Tiburcio PRICE Facility:H1 Start: 07-27-2022 End: 08-25-2022 ambulatory SHAIKH Tiburcio PRICE Facility:H1 Start: 07-13-2022 End: 07-14-[address] AUGUSTINE METZ Facility:H1 Start: 07-08-2022 ambulatory PASTOR BEDOYA [facility] Start: 07-08-2022 End: 07-08-2022 Office outpatient visit 15 minutes Pastor Bedoya MD Work Phone: [facility] Comment on above: Hx of total knee art hroplasty, right (Primary Dx) Start: 07-08-2022 End: 07-08-2022 Subsequent hospital visit by physician Pastor Bedoya MD Work Phone: [facility] Start: 06-28-2022 End: 06-29-[address] AUGUSTINE METZ Facility:H1 Start: 06-28-2022 End: 07-26-2022 ambulatory SHAIKH Tiburcio PRICE Facility:H1 Start: 06-15-2022 End: 06-16-[address] AUGUSTINE EMTZ Facility:H1 Start: 05-27-2022 End: 06-26-2022 ambulatory SHAIKH Tiburcio PRICE Facility:H1 Start: 05-03-2022 End: 05-03-2022 Patient encounter procedure Mc Blackman AL[facility] [place] Start: 04-26-2022 End: 04-27-[address] AUGUSTINE METZ Facility:H1 Start: 04-26-2022 End: 05-26-2022 ambulatory SHAIKH Tiburcio PRICE Facility:H1 Start: 04-19-2022 End: 05-08-[address] AUGUSTINE METZ Facility:H1 Start: 04-08-2022 ambulatory AZUL RACHEL [facility] Start: 04-08-2022 End: 04-08-2022 Postop follow up visit related to original px Azul LAN Work Phone: [facility] Comment on above: Hx of total knee art hroplasty, right (Primary Dx) Start: 04-08-2022 End: 04-08-2022 Subsequent hospital visit by physician Azul LAN Work Phone: [facility] Start: 04-07-2022 End: 04-08-[address] AUGUSTINE METZ Facility:H1 Start: 03-26-2022 End: 04-23-2022 ambulatory SHAIKH Tiburcio PRICE Facility:H1 Start: 03-15-2022 End: 03-16-2022 Patient encounter status Pastor Bedoya MD Work Phone: [facility] Start: 03-15-2022 End: 03-16-2022 Subsequent hospital visit by physician Pastor Bedoya MD Work Phone: [facility] Comment on above: S/P total knee arthr oplasty, right Start: 2022 End: 2022 Office outpatient new 60 minutes Pastor Bedoya MD Work Phone: [facility] Comment on above: Right knee pain, uns pecified chronicity (Primary Dx); Pain in prosthetic joint, sequela Start: 2022 End: 2022 Subsequent hospital visit by physician Pastor eBdoya MD Work Phone: [facility] Start: 11-04-2021 End: 11-04-2021 ambulatory Carmen Kahn Other [employer] Other Start: 11-04-2021 Office outpatient vi sit 25 minutes Carmen Kahn [facility] Start: 11-03-2021 End: 11-03-2021 ambulatory Carmen Willisoli Other [employer] Other Start: 11-03-2021 Telephone encounter Carmen Kahn [facility] Start: 03-20-2020 End: 03-20-2020 Office outpatient visit 15 minutes Pastor Bedoya Work Phone: [facility] Comment on above: 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) Start: 03-20-2020 End: 03-20-2020 Subsequent hospital visit by physician Azul Rachel APRN-RECLAMATION KETTLE TENDER Work Phone: [facility] Start: 06-13-2019 End: 06-14-2019 Patient encounter procedure GENE JONES Facility:[facility] Procedures Date Procedure Procedure Detail Performing Clinician Start: 01-03-2025 CRYOTHERAPY SKIN LESION Osman Shah CAPTAIN CANNERY TENDER-RECLAMATION KETTLE TENDER Work Phone: Start: 12-28-2024 End: 12-28-2024 Oph bmtry prtl coher intrfrmtry io lens pwr chhaya Jose R Dodd DO Work Phone: Start: 12-28-2024 Computerized ophthalmic imaging retina Jose R Dodd DO Work Phone: Start: 12-28-2024 End: 12-28-2024 Oph medical xm&eval comprhnsv estab pt 1/> Age-related [...] 10-04-2024 SKIN / NAIL BIOPSY Osman Shah CAPTAIN CANNERY TENDER-RECLAMATION KETTLE TENDER Work Phone: Start: 09-07-2024 Computerized ophthalmic imaging retina Jose R Dodd DO Work Phone: Start: 09-07-2024 End: 09-07-2024 Oph medical xm&eval intermediate estab pt Advanced atrophic nonexudative [...] use of insulin ([facility]) Start: 06-19-2024 End: 06-19-2024 CRYOTHERAPY SKIN LESION Osman Shah CAPTAIN CANNERY TENDER-RECLAMATION KETTLE TENDER Work Phone: Start: 06-08-2024 Computerized ophthalmic imaging retina Jose R Dodd DO Work Phone: Start: 06-08-2024 End: 06-08-2024 Oph medical xm&eval comprhnsv estab pt 1/> [...] Phone: Start: 03-15-2022 Prothrombin time Azul Rachel CAPTAIN CANNERY TENDER-RECLAMATION KETTLE TENDER Work Phone: Start: 03-15-2022 Cultyp nuc acid amp prb cult/isolate ea orgnism Azul Rachel CAPTAIN CANNERY TENDER-RECLAMATION KETTLE TENDER Work Phone: Start: 03-15-2022 Sars-cov-2 detection by dna/rna Azul Andrews james CAPTAIN CANNERY TENDER-RECLAMATION KETTLE TENDER Work Phone: Start: 03-15-2022 Antibody screen rbc each serum technique Pastor Bedoya MD Work Phone: Start: 03-15-2022 End: 03-15-2022 Thromboplastin time partial plasma/whole blood Azul Rachel CAPTAIN CANNERY TENDER-RECLAMATION KETTLE TENDER Work Phone: Start: 01-10-2020 Renal lithotripsy Mc ALMONTE Start: 10-23-2019 Cystoscopic removal of ureteric stent Mc ALMONTE Start: 09-26-2019 Endoscopic retrograde cholangiopancreatography Mc ALMONTE Cholecystectomy Mc [facility] Colonoscopy Mc ALMONTE Depression screening Ramirez Metz Other Total knee replacement Silkeivett ALMONTE Plan of Treatment Date Care Activity Detail Author Start: 07-04-2025 End: 07-04-2025 Patient encounter procedure 07/04/2025 9:10 AM EDT Office Visit [facility] [address] [place] [phone] Osman Shah CAPTAIN CANNERY TENDER-RECLAMATION KETTLE TENDER [address] [place] [address] [facility] Start: 02-26-2025 End: 02-26-2025 Patient encounter procedure 02/26/2025 10:15 AM EDT Office Visit [facility] [address] [place] [address] Jose R Dodd, [address] [place] [address] [facility] Start: 01-03-2025 End: 01-03-2025 Patient encounter procedure [facility] Comment on above: Arrived Start: 01-01-2025 End: 01-01-2025 Patient encounter procedure [facility] [place] Comment on above: Arrived Start: 12-28-2024 End: 12-28-2024 Patient encounter procedure [facility] Comment on above: Arrived Start: 10-30-2024 End: 10-30-2024 Patient encounter procedure [facility] [place] Comment on above: Arrived Start: 10-22-2024 End: 10-22-2024 [facility] Start: 10-17-2024 End: 10-17-2024 Patient encounter [...] [address] [place] [phone] Osman Shah APRN-RECLAMATION KETTLE TENDER [address] [place] [address] [facility] Start: 06-27-2024 End: 06-27-2024 Patient encounter procedure 06/27/2024 9:00 AM EDT Office Visit [facility] [address] [place] [address] Simran Muniz NP [address] [place], [place] Arrived [facility] Comment on above: Arrived Start: 06-19-2024 End: 06-19-2024 Patient encounter procedure 06/19/2024 9:25 AM EDT Office Visit [facility] [address] [place] [address] Osman Shah, CAPTAIN CANNERY TENDER-RECLAMATION KETTLE TENDER [address] [place] [address] Arrived [facility] Comment on above: Arrived Start: 06-08-2024 End: 06-08-2024 Patient encounter procedure 06/08/2024 10:30 AM EDT Office Visit [facility] [address] [place] [phone] Jose R Dodd, [address] [place], [place] [id number] Arrived [facility] Comment on above: Arrived Start: 05-27-2024 Influenza vaccination Influenza Vaccine (#1) [facility] Start: 02-24-2024 End: 02-24-2024 [facility] Start: 01-10-2024 End: 01-10-2024 Patient encounter procedure 01/10/2024 9:35 AM EDT Office Visit [facility] [address] [place] [phone] Osman Shah, CAPTAIN CANNERY TENDER-RECLAMATION KETTLE TENDER [address] [place] [address] [facility] Start: 10-28-2023 End: 10-28-2023 Patient encounter procedure 10/28/2023 9:30 AM EST Procedure Visit [facility] [address] [place] [phone] Jose R Dodd DO [address] [place] [address] Arrived [facility] Comment on above: Arrived Start: 05-27-2023 Influenza vaccination Influenza Vaccine (#1) [facility] Start: 03-16-2023 End: 06-21-2023 Patient encounter procedure 03/16/2023 Office Visit Orthopaedics Azul Rachel, CAPTAIN CANNERY TENDER-RECLAMATION KETTLE TENDER [address] [place] [address] [facility] Start: 10-22-2022 COVID-19 VACCINE (6 - Pfizer series) COVID-19 VACCINE (6 - Pfizer series) [facility] Start: 08-21-2022 Hemoglobin A1c measurement HBA1C TEST [facility] Start: 07-08-2022 End: 07-08-2022 Patient encounter procedure 07/08/2022 Office Visit Orthopaedics Pastor Bedoya MD [address] [place] [address] [facility] Start: 05-27-2022 Influenza vaccination [facility] Start: 04-08-2022 End: 04-08-2022 Patient encounter procedure 04/08/2022 Office Visit Orthopaedics Azul Rachel, CAPTAIN CANNERY TENDER-RECLAMATION KETTLE TENDER [address] [place] [address] [facility] Start: 02-18-2022 End: 02-18-2022 ambulatory 02/18/2022 Pre-Operative Nurse Assessment Internal Medicine [facility] Start: 05-27-2020 Influenza vaccination INFLUENZA VACCINE (Season Ended) [facility] Start: 12-25-2014 Pneumococcal vaccination PNEUMOCOCCAL VACCINE SERIES (2 - PCV) [facility] Start: 12-25-2014 Pneumococcal Vaccine: 65+ Years (2 - PCV) Pneumococcal Vaccine: 65+ Years (2 - PCV) [facility] Start: 12-25-2014 Pneumococcal Vaccine: 65+ Years (2 of 2 - PCV) Pneumococcal Vaccine: 65+ Years (2 of 2 - PCV) [facility] Start: 2011 Abdominal aortic aneurysm screening ABDOMINAL AORTIC ANEURYSM HIGH RISK SCREEN [facility] Start: 2011 Pneumococcal vaccination [facility] Start: 01-22-1996 Colonoscopy COLORECTAL CANCER SCREENING DISCUSSION [facility] Start: 01-22-1996 Prostate specific antigen measurement PROSTATE CANCER SCREENING DISCUSSION [facility] Start: 01-22-1996 Zoster vaccine hzv live for subcutaneous use ZOSTER (SHINGLES) VACCINE (1 of 2) [facility] Start: 1991 Colonoscopy COLORECTAL CANCER SCREENING DISCUSSION [facility] Start: 1991 Screening for malignant neoplasm of colon COLORECTAL CANCER SCREENING DISCUSSION [facility] Start: 1986 Fasting lipid profile LIPID SCREENING [facility] Start: 1965 Third diphtheria, tetanus and acellular pertussis (DTaP) vaccination TDAP (ADULT) [facility] Start: 01-22-1964 Tetanus vaccination TETANUS [facility] Start: 1951 COVID-19 VACCINE (#1) COVID-19 VACCINE (#1) [facility] Start: 1946 COVID-19 VACCINE (#1) COVID-19 VACCINE (#1) [facility] Start: 1946 Diabetic foot examination DIABETIC FOOT EXAM [facility] Start: 1946 Diabetic retinal eye exam EYE EXAM [facility] Start: 1946 Glaucoma screening EYE EXAM [facility] Start: 1946 Hepatitis B vaccination HEP B VACCINE (1 of 3 - 3-dose series) [facility] Start: 1946 Hepatitis C antibody, confirmatory test HEPATITIS C VIRUS SCREENING [facility] Start: 1946 Hepatitis C screening HEPATITIS C VIRUS SCREENING [facility] Start: 1946 Lipid panel LIPIDS [facility] Start: 1946 LIPIDS LIPIDS [facility] Start: 1946 Microalbumin measurement, urine, quantitative URINE MICROALBUMIN TEST [facility] Start: 1946 Potassium [Moles/Vol] POTASSIUM [facility] Start: 1946 Tetanus vaccination TETANUS [facility] Start: 1946 Urine screening for protein URINE MICROALBUMIN TEST [facility] Dermatopathology exam Dermatopat hology exam Pathology and Cytology Timed Neoplasm of unspecified behavior of bone, soft tissue, and skin Release Upon Ordering for 1 Occurrences starting 10/04/2024 [facility] Work Phone: Comment on above: Release Upon Ordering for 1 Occurrences starting 10/04/2024 Patient Education Know your Meds [facility] Work Phone: Patient referral [facility] Work Phone: Radiography for bone length studies XR BONE LENGTH STUDY Imaging Routine Hx of total knee arthroplasty, right 07/08/2022 11:01 AM EDT [employer] Work Phone: SURGICAL PATHOLOGY REQUEST SURGICAL PATHOLOGY REQUEST Surg Path Routine Osteoarthritis of right knee, unspecified osteoarthritis type Release Upon Ordering for 1 Occurrences starting 03/15/2022 [employer] Work Phone: Comment on above: Release Upon Ordering for 1 Occurrences starting 03/15/2022 X-ray of left knee XR KNEE LEFT 3 VIEWS Imaging Routine History of revision of total replacement of left knee joint 03/20/2020 10:48 AM EDT [employer] XR Knee - left 3 Views XR KNEE L EFT 3 VIEWS Imaging Routine Pain in prosthetic joint, sequela 2022 1:09 PM EDT [employer] XR Knee - right 3 Views XR KNEE RIGHT 3 VIEWS Imaging Routine Hx of total knee arthroplasty, right 04/08/2022 10:04 AM EDT [employer] XR Knee - right 3 Views XR KNEE RIGHT 3 VIEWS Imaging Routine Hx of total knee arthroplasty, right 07/08/2022 11:01 AM EDT [employer] XR Knee - right 3 Views XR KNEE RIGHT 3 VIEWS Imaging Routine Hx of total knee arthroplasty, right 03/16/2023 11:03 AM EDT [employer] XR Knee - right 4 Views XR KNEE RIGHT 4+ VIEWS Imaging Routine Right knee pain, unspecified chronicity 2022 12:51 PM EDT [employer] [facility] Immunizations Immunization Date Immunization Notes Care Provider Fa cilikailash 08-21-2024 COVID-19 (PFIZER) 12Y and older Augustine Metz DO Work Phone: [facility] 07-09-2024 influenza, high dose seasonal, preservative-free [facility] 12-27-2023 COVID-19 (PFIZER) 12Y and older DO Augustine Metz Work Phone: [facility] 07-08-2023 influenza virus vaccine, unspecified formulation [facility] 07-08-2023 influenza, high dose seasonal, preservative-free Augustine Metz Other [facility] [employer] Other 06-21-2023 COVID-19 (PFIZER) 12Y and older DO Augustine Metz Work Phone: [facility] 03-03-2023 zoster vaccine recombinant Augustine Metz Other [facility] 01-01-2023 zoster vaccine recombinant Augustine Metz Other [facility] 06-29-2022 influenza, high dose seasonal, preservative-free Augustine Metz Other [facility] [employer] Other 06-29-2022 influenza virus vaccine, split virus (incl. purified surface antigen) Augustine Metz Other [facility] [employer] Other 06-29-2022 Influenza, Seasonal, Quadrivalent, Adjuvanted Jose R Zahler DO Work Phone: [facility] 06-29-2022 influenza virus vaccine, unspecified formulation Jose R Zahler DO Work Phone: [facility] 06-22-2022 COVID-19 Pfizer (bivalent) Augustine Metz Other [facility] 04-17-2022 COVID-19 Comirnaty (Pfizer) Tri-Sucrose 12+ DO Augsutine Metz Work Phone: [facility] 07-15-2021 influenza virus vaccine, split virus (incl. purified surface antigen) Augustine Metz Other [facility] [employer] Other 07-15-2021 influenza virus vaccine, unspecified formulation [facility] 07-15-2021 Seasonal trivalent influenza vaccine, adjuvanted, preservative free Jose R Zahler DO Work Phone: [facility] 06-22-2021 COVID-19 Vaccine Pfi zer - Documentation Purposes Only Augustine Metz Other [facility] 11-20-2020 COVID-19 Vaccine Pfi zer - Documentation Purposes Only Augustine Metz Other [facility] 10-30-2020 COVID-19 Vaccine Pfi zer - Documentation Purposes Only Augustine Metz Other [facility] 07-09-2020 influenza, high dose seasonal, preservative-free Jose R Zahler DO Work Phone: [facility] 07-01-2020 influenza virus vaccine, split virus (incl. purified surface antigen) Augustine Metz Other [facility] [employer] Other 07-01-2020 influenza virus vaccine, unspecified formulation [facility] 07-06-2019 influenza virus vaccine, split virus (incl. purified surface antigen) Augustine Metz Other [facility] [employer] Other 07-06-2019 influenza virus vaccine, unspecified formulation [facility] 07-12-2018 influenza virus vaccine, split virus (incl. purified surface antigen) Augustine Metz Other [facility] [employer] Other 07-12-2018 influenza virus vaccine, unspecified formulation [facility] 07-12-2018 Seasonal trivalent influenza vaccine, adjuvanted, preservative free Jose R Zahler DO Work Phone: [facility] 07-25-2017 influenza virus vaccine, split virus (incl. purified surface antigen) Augustine Metz Other [facility] [employer] Other 07-25-2017 influenza virus vaccine, unspecified formulation [facility] 07-25-2017 influenza, high dose seasonal, preservative-free Jose R Zahler DO Work Phone: [facility] 07-07-2016 influenza virus vaccine, split virus (incl. purified surface antigen) Augustine Isaías Other [facility] [employer] Other 07-07-2016 influenza virus vaccine, unspecified formulation [facility] 07-07-2016 influenza, high dose seasonal, preservative-free Jose R Zahler DO Work Phone: [facility] 07-18-2015 pneumococcal conjuga te vaccine, 13 valent Augustine Metz Other [facility] 06-11-2015 influenza virus vaccine, split virus (incl. purified surface antigen) Augustine Metz Other [employer] Other 06-11-2015 influenza virus vaccine, unspecified formulation [facility] 05-27-2015 influenza, injectabl e, madin emilee canine kidney, preservative free Jose R Zahler DO Work Phone: [facility] 06-17-2014 tetanus and diphther ia toxoids, adsorbed, preservative free, for adult use (5 Lf of tetanus toxoid and 2 Lf of diphtheria toxoid) Augustine Metz Other [facility] 12-25-2013 pneumococcal polysaccharide vaccine, 23 valent Jose R Zahler DO Work Phone: [facility] 08-28-2013 pneumococcal polysaccharide vaccine, 23 valent Augustine Metz Other [facility] 07-26-2013 tetanus and diphther ia toxoids, adsorbed, preservative free, for adult use (5 Lf of tetanus toxoid and 2 Lf of diphtheria toxoid) Augustine Metz Other [facility] 07-18-2013 zoster vaccine, live Ramirez Metz Other [facility] 1946 pneumococcal conjuga te vaccine, 7 valent Damari Rojas Dept. of Dermatology Payers Date Payer Category Payer Self-pay [id number] 2022 Private Health Insurance [employer] [id number] 2017 Unknown [employer] M MO TRADITIONAL [id number] 2017-Present [id number]. [id number] 2010 Medicare MEDICARE MEDICAR E A AND B [id number] 2010-Present [place], [place] [id number]. [id number] 2008 Medicare [id number] [id number]. [id number] 2008 Unknown [id number]. 1.13.172.2. [id number] 1959 Medicare [id number] 2.840.1.564536.19 1959 Unknown [id number] 1946 Unknown [id number] 2.0.1.511267.3.579.2. 647 1946 Unknown [id number] 2.840.1.698168.3.579.2. 356 1946 Unknown [id number] 2.160.1.698208.3.579.2. 356 1946 Unknown [id number] 2.840.1.772277.3.579.2. 159 1946 Unknown [id number] 2.840.1.609947.3.579.2. 159 1946 Unknown [id number] 2.16.840.1.228910.3.579.2. 159 1946 Unknown [id number] 2.16.840.1.109486.3.579.2. 159 1946 Unknown [id number] 2.16.840.1.414426.3.579.2. 159 1946 Unknown [id number] 2.16.840.1.909189.3.579.2. 593 1946 Unknown [id number] 2.16.840.1.456909.3.579.2. 593 1946 Unknown [id number] 2.16.840.1.791222.3.579.2. 593 1946 Unknown [id number] 2.16.840.1.068735.3.579.2. 593 1946 Unknown [id number] 2.16.840.1.196917.3.579.2. 593 1946 Unknown [id number] 2.16.840.1.010384.3.579.2. 593 1946 Unknown [id number] 2.16.840.1.876389.3.579.2. 593 1946 Unknown [id number] 2.16.840.1.589039.3.579.2. 593 1946 Unknown [id number] 2.16.840.1.635572.3.579.2. 593 1946 Unknown [id number] 2.16.840.1.814272.3.579.2. 593 1946 Unknown [id number] 2.16.840.1.154917.3.579.2. 593 1946 Unknown [id number] 2.16.840.1.871642.3.579.2. 593 1946 Unknown [id number] 2.16.840.1.842886.3.579.2. 593 1946 Unknown [id number] 2.16840.1.065685.3.579.2. 593 1946 Unknown [id number] 2.16840.1.161884.3.579.2. 593 1946 Unknown [id number] 2.16840.1.867604.3.579.2. 593 1946 Unknown [id number] 2.16840.1.310424.3.579.2. 593 1946 Unknown [id number] 2.840.1.702561.3.579.2. 593 1946 Unknown [id number] 2.840.1.705339.3.579.2. 593 1946 Unknown [id number] 2.840.1.089361.3.579.2. 593 1946 Unknown [id number] 2.16840.1.542955.3.579.2. 983 1946 Unknown [id number] 2.840.1.416362.3.579.2. 983 1946 Unknown [id number] 2.840.1.529769.3.579.2. 983 1946 Unknown [id number] 2.840.1.063212.3.579.2. 983 1946 Unknown [id number] 2.16840.1.015065.3.579.2. 983 1946 Unknown [id number] 2.16840.1.733358.3.579.2. 983 1946 Unknown [id number] 2.16840.1.324461.3.579.2. 718 1946 Unknown [id number] 2.840.1.761583.3.579.2. 1259 1946 Unknown [id number] 2.16.840.1.192443.3.579.2. 1258 1946 Unknown [id number] 2.16.840.1.732929.3.579.2. 1258 1946 Unknown [id number] 2.16.840.1.573931.3.579.2. 1258 1946 Unknown [id number] 2.16.840.1.146505.3.579.2. 1258 1946 Unknown [id number] 2.16.840.1.953457.3.579.2. 1258 1946 Unknown [id number] 2.16840.1.403766.3.579.2. 1258 1946 Unknown [id number] 2.16840.1.226087.3.579.2. 1258 1946 Unknown [id number] 2.16840.1.214763.3.579.2. 1258 1946 Unknown [id number] 2.16840.1.576588.3.579.2. 1258 1946 Unknown [id number] 2.16840.1.996527.3.579.2. 1258 1946 Unknown [id number] 2.16840.1.872752.3.579.2. 1258 1946 Unknown [id number] 2.16840.1.429116.3.579.2. 1258 1946 Unknown [id number] 2.16840.1.931919.3.579.2. 1258 1946 Unknown [id number] 1945 Unknown [id number]. 1258 1945 Unknown [id number]. 1259 1945 Unknown [id number]. 1259 1945 Unknown [id number]. 1259 1945 Unknown [id number] 1259 Medicare [id number] Unknown [facility] [id number] Unknown [id number] 531 Unknown [id number] 531 Unknown [id number]. 531 Unknown [id number] 531 Social History Date Type Detail Facility Start: 03-20-2020 End: 10-22-2024 Tobacco smoking status [facility] Former smoker [employer] End: 02-08-1983 History of tobacco use Current smoker [employer] Start: 03-20-2020 End: 07-08-2022 Tobacco use and exposure Former user [employer] End: 02-08-2003 History of tobacco use User of smokeless tobacco [employer] Start: 03-20-2020 End: 03-16-2023 Alcohol intake Current non-drinker of alcohol (finding) [employer] Start: 1945 Sex Assigned At Not on file [facility] Start: 03-05-2022 End: 03-15-2022 Exposure to SARS-CoV-2 (event) Not sure [facility] Start: 03-16-2023 End: 01-03-2025 Sex Assigned At [facility] Start: 05-03-2022 End: 12-16-2023 Tobacco smoking status Never smoked tobacco (finding) [facility] End: 02-08-1983 History of tobacco use Cigarette Smoker [facility] Start: 09-14-2022 Dept. of D ermatology Start: 1945 Sex Assigned At Male [facility] Start: 03-16-2023 End: 01-03-2025 History of Social function [facility] Gender identity Identifies as ma le gender (finding) [facility] Start: 08-29-2023 End: 01-03-2025 Alcohol intake Lifetime non-drinker (finding) [facility] Start: 06-23-2023 Alcohol Comment caffeine: soda [facility] Start: 10-10-2024 End: 01-09-2025 Sex Male (finding) [facility] Procedure Code Equipment Code [...] 12-16-2023 End: 12-16-2023 Blood Sugar Diagnostic (Accu-Chek Rpachi Plus Test Strp) strip Start: 12-19-2023 Blood [...] 12-16-2023 End: 12-16-2023 Blood Sugar Diagnostic (Accu-Chek Prcahi Plus Test Strp) strip Start: 12-19-2023 Blood [...] (Accu-Chek Prachi Plus Test Strp) strip Start: 02-04-2025 Blood Sugar Diagnostic (Accu-Chek Prachi Plus Test Strp) strip Start: 12-16-2023 End: 12-19-2023 Blood Sugar Diagnostic (Accu-Chek Prachi Plus Test Strp) strip Start: 12-19-2023 End: 02-02-2025 Blood Sugar Diagnostic (Accu-Chek Prachi Plus Test Strp) strip Start: 02-02-2025 End: 02-04-2025 Blood Sugar Diagnostic (Accu-Chek Prachi Plus Test Strp) strip Start: 12-16-2023 End: 12-16-2023 Goals Date Patient Goal Desired Activity /State Functional Status Date Assessment Result Facility 05-03-2022 Functional Status N/A [facility] Clinical Notes 11-04-2021 to 01-11-2025 Note Date & Type Note Facility 01-11-2025 Note [place] [facility] - [facility] Subjective Tito Goncalves is a 79 [...] In April 2019 he presented to the [facility] with atrial fibrillation with controlled ventricular response. [...] Chest: Chest wal (more content not included)... [facility] 01-09-2025 Evaluation note Diagnosis Onset Date Resolution Anemia acute January 09 9:37am Atrial fibrillation acute January 09, 2025 9:37am Chronic kidney disease acute 2024 9:37am Diabetes mellitus with diabetic polyneuropathy acute January 092024 9:37am GERD (gastroesophageal reflux disease) acute January 09, 2025 9:37am Hypertension acute January 09, 2025 9:37am Obesity acute January 09 9:37am CUBA (obstructive sleep apnea) acute January 09, 2025 9:37am Type 2 diabetes mellitus with hyperglycemia acute January 09 9:37am Anemia acute February 13, 2025 11:29am Atrial fibrillation acute January 252024 11:29am Chronic kidney disease acute 2024 11:29am Diabetes mellitus with diabetic polyneuropathy acute January 11:29am GERD (gastroesophageal reflux disease) acute February 13, 2025 11:29am Hypertension acute February 13 11:29am Obesity acute February 13, 2025 11:29am CUBA (obstructive sleep apnea) acute February 13, 2025 11:29am Prerenal azotemia acute January 11:29am Type 2 diabetes mellitus with hyperglycemia acute February 13 11:29am Anemia acute April 02, 2025 10:09am Atrial fibrillation acute April 02, 2025 10:09am Chronic kidney disease acute 2024 10:09am Diabetes mellitus with diabetic polyneuropathy acute March 10:09am GERD (gastroesophageal reflux disease) acute April 02, 2025 10:09am Hypertension acute April 02 10:09am 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, 2025 10:09am Obesity acute April 02, 2025 10:09am CUBA (obstructive sleep apnea) acute April 02, 2025 10:09am Type 2 diabetes mellitus with hyperglycemia acute April 02 10:09am [facility] Work Phone: [phone]) 976-623704-10-2025 History of Present illness Narrative* Osman Shah CAPTAIN CANNERY TENDER-RECLAMATION KETTLE TENDER - 01/03/2025 9:20 AM EDT Images from the original note [...] performed by Macario Bui MD Location: Right caodaism Established patient Patient denies loss of appetite, [...] History of malignant melanoma of skin Right Sikhism No evidence of recurrence at melanoma scar. [...] Mid Occipital Scalp (3), Mid Parietal Scalp (2),Right Dorsal Hand, Right Ear Erythematous scaly papules [...] limited to risks of scarring, darker or airfield services officer pigmentary changes, recurrence, incomplete removal and infection. [...] 6 months skin exam documented in this encounterSSM Saint [facility] [id number] NoteRight Eye Quality was poor. Scan locations included subfoveal. Progression has been stable. Findings include abnormal foveal contour. Left Eye Quality was good. Scan locations included subfoveal. Progression has been stable. Findings include abnormal foveal contour. Notes Macular volume loss both eyes (OU).[facility] [id number] History of Present illness Narrative* Jose R Dodd DO - 12/28/2024 9:45 AM EDT Images from the original note were not included. Subjective Patient ID: Tito Goncalves is a 79 y.o. male. Chief Complaint Follow-up; Macular Degeneration; Cataract HPI Macular Degeneration In both eyes. This started years ago. Vision is stable. Cataract In both eyes. Associated symptoms include blurred vision, glare and haloes. Severity is moderate. Onset was gradual. Frequency is constant. Context: mid- range vision, reading, watching TV and computer work. Since onset it is gradually worsening. Affected activities include driving, watching TV and daily activities. Treatments tried include artificial tears and glasses. Response to treatment was mild improvement. Comments 3 mo Fu with OCT Mac and optic nerve (ON) for management of age-related macular degeneration (ARMD)both eyes (OU) and diabetes mellitus (DM) II. Last A1c 7.2, not using any drops. Pt followed for Cataract both eyes (OU), NOELLE and age-related macular degeneration (ARMD). Pt statesthat when driving, distance isn't as clear. Road signs for example. Both eyes (OU), since last exam. Last edited by Jose R Dodd DO on 12/28/2024 1:56 PM. Current Outpatient Medications (Ophthalmic Agents) Medication Sig Dispense Refill Idbnxwslpqe-Awbxmqxd-Nfdjcxsef 1-0.5-0.075 % solution Administer 1 drop into affected eye(s) in themorning and 1 drop at noon and 1 [...] Daily gabapentin (Neurontin) 300 MG capsule HYDROcodone-acetaminophen (Vernal) 7.5-325 MG tablet levETIRAcetam (Keppra) 500 MG [...] pain 07/11/2024 COVID-19 vaccine administered x 2 (Coinex-IO) Diabetes ([facility]) Diverticulosis of colon 10/17/2012 Family history of malignant neoplasm of skin 02/15/2024 Family history of malignant neoplasm of skin 09/06/2023 Gastroesophageal reflux disease without esophagitis 03/15/2022 GERD (gastroesophageal reflux disease) Glaucoma 09/06/2023 Glycosuria 02/15/2024 Glycosuria 09/06/2023 HTN (hypertension) ([facility]) Hypercholesteremia ([facility]) Hyperlipidemia ([facility] Hypertension ([facility]) Hypertensive disorder ([facility]) 06/10/2014 Macular degeneration Malignant neoplasm of skin 10/17/2012 Melanoma ([facility]) Melanoma in situ of face ([facility]) 02/15/2024 Mitral valve disorder 09/17/2013 MILD (ECHO 05/09) Obstructive sleep apnea syndrome 09/17/2013 Paroxysmal atrial fibrillation ([facility]) 09/17/2013 PAF; CHADS2 SCORE 2 (HTN, DM). ON COUMADIN. 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 Intraocular lens (IOL) [...] decreased vision or metamorphopsia. documented in this [facility]02-08-2025 History of Present illness Narrative* Augustine Freitas DO - 01/01/2025 10:30 AM EDT HPI Patient presents today to reinspect his [...] patient back as needed documented in this [facility]02-08-2025 History of Present illness Narrative* Augustine Freitas DO - 01/01/2025 10:30 AM EDT HPI Patient presents today to reinspect his [...] patient back as needed documented in this encounterSSM Saint [facility] Health [id number] History of Present illness Narrative* Augustine Freitas DO - 10/30/2024 10:15 AM EST HPI Patient presents today 1 week postop repair of a nasal Mohs defect utilizing a nasal dorsal flap. He is doing fine. Relevant postoperative physical examination Sutures removed, flap 100 percent viable and healing nicely. Assessment/plan Tito was seen today for post-op. Diagnoses and all orders for this visit: Mohs defect of nose (Primary) Comments: Patient given wound instructions. He is leaving for [place] for the remainder of the winter. I willsee him on a returns in December documented in this encounterSSM Saint Mary's Health [id number] History of Present illness Narrative* Augustine Freitas DO - 10/17/2024 1:30 PM EST Allergies as of 10/17/2024 - Reviewed 10/17/2024 [...] esophagitis 03/15/2022 GERD (gastroesophageal reflux disease) Glaucoma ([facility]) 09/06/2023 Glycosuria 02/15/2024 Glycosuria 09/06/2023 HTN (hypertension) ([facility]) Hypercholesteremia ([facility]) Hyperlipidemia ([facility]) Hypertension ([facility]) Hypertensive disorder ([facility]) 06/10/2014 Macular degeneration Malignant neoplasm of skin 10/17/2012 Melanoma ([facility]) Melanoma in situ of face ([facility]) 02/15/2024 Mitral valve disorder 09/17/2013 MILD (ECHO 05/09) Obstructive sleep apnea syndrome 09/17/2013 Paroxysmal atrial fibrillation ([facility]) 09/17/2013 PAF; CHADS2 SCORE 2 (HTN, DM). ON COUMADIN. 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 01/28/2024 Stage 3a chronic kidney disease (HCC) ([facility]) 03/15/2022 Subdural hematoma ([facility]) 2023 Type 2 diabetes mellitus without complication, without long-term current use of insulin ([facility]) 10/17/2012 Current Outpatient Medications: acetaminophen (Tylenol) 500 [...] a day for 10 days, Disp: 20 capsule,Rfl: 0 clonazePAM (KlonoPIN) 1 MG tablet, 1-2 tablet at bedtime, Disp: 180 tablet, Rfl: 0 gabapentin (Neurontin) 300 MG capsule, , Disp: , Rfl: HYDROcodone-acetaminophen (Vernal) 7.5-325 MG tablet, , Disp: , Rfl: [...] ERCP x2 FINGER AMPUTATION Left ring finger MS ARTHROSCOPY KNEE DIAGNOSTIC W/WO SYNOVIAL BX SPX [...] Strain: Low Risk (01/24/2024) [facility] Overall Financial Resource Strain (CARDIA) Difficulty of Paying Living Expenses: Not hard at all Food Insecurity: No Food Insecurity (01/24/2024) [facility] Hunger Vital Sign Within the past 12 months, you worried that your food would run out before you got the money to buymore.: Never true Ran Out of Food in the Last Year: Not on file Transportation Needs: No Transportation Needs (01/24/2024) Received from [facility], [facility] Transportation In the past 12 months, has lack of transportation kept you from medical appointments or from getting medications?: No Lack of Transportation (Non-Medical): Not on file Physical Activity: Not on file Stress: Not on file Social Connections: Not on file Intimate Partner Violence: Unknown (01/24/2024) Re[facility] Humiliation, Afraid, Rape, and Kick questionnaire Fear of Current or Ex-Partner: No Emotionally Abused: Not on file Physically Abused: Not on file Sexually Abused: Not on file Housing Stability: Low Risk (01/24/2024) [facility] Housing Stability Vital Sign Unable to Pay for Housing in the Last Year: Not on file Number of Places Lived in the Last Year: Not on file In the last 12 months, was there a time when you did not have a steady place to sleep or slept in ashelter (including now)?: No Subjective Patient ID: HPI Patient presents today following Mohs resection of a skin cancer of the nasal dorsum yesterday. Thedefect about 2 cm just to the right [...] are not limited to disfigurment, scarring, poor cosemeticresults, difficuty with function of the organ/site involved with the resection a/o flap, bleeding, i nfection, of the flap, numbness, neuro/vascular injury, need for additional surgery a/o treatment, etc. The pateint has consented to proceed. documented in this encounterSSM Saint Mary's Health [id number] History of Present illness Narrative* Christin Bolton MD - 10/16/2024 1:00 PM EST Images from the original note [...] as well as the risks, benefits, and alternatives.The risks of infection, scarring, bleeding, prolonged wound healing, incomplete removal, allergy toanesthesia or meds, nerve injury, and recurrence were addressed.) [place] Protocol: Procedure explained and questions answered to [...] sodium bicarbonate Procedure Details: Biopsy accession number: [id number] Biopsy lab: [facility] Date of biopsy: 10/04/2024 Frozen section biopsy [...] lab where it was chromacoded and processed. Mohssections were prepared with serial tissue sections, stained, [...] days Next visit: 01/03/2025 documented in this encounterSSM Saint Mary's Health [id number] History of Present illness Narrative* Kingston Coppola DO - 10/03/2024 8:00 AM EST Chief Complaint Patient presents with PLMD Patient is here today for follow-up of CUBA and PLMD. Subjective Tito Goncalves, 79 y.o., male, being seen today for a follow up from the sleep clinic. He states the klonopin does help him sleep. He states he gets at least 9 hours of sleep per night. He is wearinghis machine nightly. His machine is running out of water at night. His mask leaks slightly at times. He needs a refill of Klonopin and will be leaving for [place] in October and not coming back untilDecember. He would like to get a 90 day to cover the time he is gone. Past Medical History: Diagnosis Date Actinic keratoses Arthritis Atrial fibrillation ([facility]) Basal cell carcinoma (BCC) of left preauricular region Mohs 10/21/2022 COVID-19 vaccine administered x 2 (Coinex-IO) Diabetes ([facility]) Diverticulosis of colon 10/17/2012 Family history of malignant neoplasm of skin 02/15/2024 Family history of malignant neoplasm of skin 09/06/2023 Gastroesophageal reflux disease without esophagitis 03/15/2022 GERD (gastroesophageal reflux disease) Glaucoma ([facility]) 09/06/2023 Glycosuria 02/15/2024 Glycosuria 09/06/2023 HTN (hypertension) ([facility]) Hypercholesteremia ([facility]) Hyperlipidemia ([facility] Hypertension ([facility]) Hypertensive disorder ([facility]) 06/10/2014 Macular degeneration Malignant neoplasm of skin 10/17/2012 Melanoma ([facility]) Melanoma in situ of face ([facility]) 02/15/2024 Mitral valve disorder 09/17/2013 MILD (ECHO 05/09) Obstructive sleep apnea syndrome 09/17/2013 Paroxysmal atrial fibrillation ([facility]) 09/17/2013 PAF; CHADS2 SCORE 2 (HTN, DM). ON COUMADIN. 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 01/28/2024 Stage 3a chronic kidney disease (HCC) ([facility]) 03/15/2022 Subdural hematoma ([facility]) 2023 Type 2 diabetes mellitus without complication, without long-term current use of insulin ([facility]) 10/17/2012 Past Surgical History: Procedure Laterality Date CARDIOVERSION CHOLECYSTECTOMY 2012 COLONOSCOPY 2010 ERCP x2 FINGER AMPUTATION Left ring finger MS ARTHROSCOPY KNEE DIAGNOSTIC W/WO SYNOVIAL BX SPX [...] that also He will be going to [place] once again this October for 1 1/2 months. We will end up seeing him anothertime before this. We will once again give [...] were answered and they agreed with the treatmentplan. The patient is to call with any worsening of the condition or new symptoms. Return to clinic: 3 months documented in this encounterSSM Saint Mary[facility] Health [id number] NoteRight Eye Quality was good. Scan locations included subfoveal. Progression has been stable. Findings include abnormal foveal contour, subretinal scarring. Left Eye Quality was good. Scan locations included subfoveal. Progression has been stable. Findings include abnormal foveal contour. Notes Macular Volume Loss both eyes (OU)[facility] [id number] History of Present illness Narrative* Jose R Dodd DO - 09/07/2024 9:45 AM EST Images from the original note [...] now given soon to be trip to [place] as well as side effects from last treatment in August. He was provided an [employer] grid to check daily and note any changes to this. He understands to get ahold of his retina specialist in [place] if there was a change. Will see [...] artificial tears were recommended. documented in this encounterSSM Saint Mary's Health CenterDsaccpqegq22-74-2973 Evaluation note* Diagnosis Onset Date Resolution Status Admit Date Anemia acute August 21, 2024 9:08am Atrial fibrillation acute Novem jn 2023 9:08am Chronic kidney disease acute No vember 2023 9:08am GERD (gastroesophageal reflu x disease) acute August 21, 2 024 9:08am Hypertension acute July 9:08am Obesity acute August 21, 2024 9:08am CUBA (obstructive sleep apnea) acute August 21, 2024 9:08am Type 2 diabetes mellitus wit h hyperglycemia acute August 21, 2 024 9:08am Atrial fibrillation acute Janua ry 2024 8:18am Chronic kidney disease acute Ja nuary 2024 8:18am GERD (gastroesophageal reflu x disease) acute October 10 8:18am Hypertension acute September 8:18am Obesity acute October 10, 2024 8:18am CUBA (obstructive sleep apnea) acute October 10, 2024 8:18am Type 2 diabetes mellitus wit h hyperglycemia acute October 10 8:18am [facility] Work Phone: 1(285) 640-375811-26-2024 Evaluation note* Diagnosis Onset Date Resolution Status Admit Date Anemia acute August 21, 2024 9:08am Atrial fibrillation acute Novem jn 2023 9:08am Chronic kidney disease acute No vember 2023 9:08am GERD (gastroesophageal reflu x disease) acute August 21, 2 024 9:08am Hypertension acute July 9:08am Obesity [...] wit h hyperglycemia acute October 10 8:18am [facility] Work Phone: 1(112) 823-559610-16-2024 [place] [facility]iology - [facility] Chief Complaint: Thought he had a [...] In April 2019 he presented to the [facility] with atrial fibrillation with controlled ventricular response. [...] not ill-appearing. HENT: Hea (more content not included)...[facility]09-24-2024 History of Present illness Narrative* Osman Shah, CAPTAIN CANNERY TENDER-RECLAMATION KETTLE TENDER - 10/04/2024 2:40 PM EST Images from [...] Next Visit: as scheduled documented in this encounterSSM Saint Mary's Health [id number] History of Present illness Narrative* EDYTA Spence [...] performed by Macario Bui MD Location: Right caodaism Established patient Lesions: Location: Nose Duration: Two [...] limited to risks of scarring, darker or airfield services officer pigmentary changes, recurrence, incomplete removal and infection. [...] 7. Seborrheic keratosis, inflamed Dorsum of Nose [place] and brown stuck on verrucous scaly papule [...] limited to risks of scarring, darker or airfield services officer pigmentary changes, recurrence, incomplete removal and infection. [...] History of malignant melanoma of skin Right Sikhism No evidence of recurrence at melanoma scar. [...] 6 months, skin check documented in this encounterSSM Saint Mary's Health [id number] NoteRight Eye Quality was good. Scan locations included subfoveal. Progression has been stable. Findings include abnormal foveal contour. Left Eye Quality was good. Scan locations included subfoveal. Progression has been stable. Findings include abnormal foveal contour. Notes Macular Volume Loss both eyes (OU). [facility] CenterMefsfmmpli51-75-3617 History of Present illness Narrative* Jose R Dodd DO - 06/08/2024 10:30 AM EDT Images from [...] now given soon to be trip to [place] as well as side effects from last treatment in August. He was provided an [employer] grid to check daily and note any changes to this. He understands to get ahold of his retina specialist in [place] if there was a change. Will see [...] artificial tears were recommended. documented in this encounterSSM Saint Mary's Health [id number] NoteUT Cardiology - [facility] Chief Complaint: Thought he had a [...] In April 2019 [facility] with [facility] fibrillation with controlled ventricular response. [...] regular rhythm. Pulses: Radial (more content not included)...[facility] 03-22-2024 NoteUT Cardiology - [facility] Subjective Tito Goncalves is a 79 [...] In April 2019 he presented to the [facility] with atrial fibrillation with controlled ventricular response. [...] Judgment normal. Allergies Morro (more content not included)...[facility]06-21-2024 NotePatient: Tito Goncalves Procedure Information Date/Time: 03/16/24 [...] who consented to blood products. Additional Equipment RequestsCincinnati VA Medical Center05-16-2024 Note Patient here for follow up LAAO and pericardial effusion. Still denies chest pain, SOB, palpitations, and lightheadedness/syncope. Doing very well. Review of Systems Constitutional: Positive for malaise/fatigue. Cardiovascular: Positive for leg swelling (resolves by morning). Hematologic/Lymphatic: Bruises/bleeds easily. Musculoskeletal: Positive for arthritis, back pain and myalgias. All other systems reviewed and are negative.[facility] 02-09-2024 NoteCardiovascular Medicine [place] [facility] SUBJECTIVE Chief Complaint Patient presents with [...] Left lower leg: Naman (more content not included)...[facility]05-05-2024 NotePatient discharged with family. Patient provided copy of AVS and discharge instructions. All questions and concerns addressed. All belongings with patient [facility]05-05-2024 NoteHospital Medicine Discharge Summary Final Discharge Diagnosis: [...] In April 2019 [facility] the [facility] with atrial fibrillation with controlled ventricular response. [...] switched propafenon to amiodarone. - Not on terminal operator AC due to hx of falls and [...] 02/09/2024 9:40 AM Madison Paul NP TIMO Romano [facility] 03/16/2024 10:30 AM [facility] INSIDE BARREL LATHE OPERATOR HOLDING ROOM [facility] Your medication list START taking [...] These medications were sent to [facility] - [place], [place] - [facility] Ricardo Kohler MS [address], [facility] [address] amiodarone 200 mg tablet clopidogrel 75 mg tablet Tito is allergic to iodine, penicillins, shellfish containing products, and sulfa (sulfonamide antibiotics). Disposition: Home-Health Care [facility] (06) Discharge Condition: Stable Code Status: Full [...] and oriented x3. Cardiology: (more content not included)...[facility] 01-29-2024 NoteCardiology Progress Note Subjective Subjective: No [...] 86 QT Interval 316 QTC CALCULATION(BAZETT) 453 R-[place] 8 T Wave [place] 100 Impression Atrial fibrillation with rapid ventricular [...] 1 1 [facility] Heart Station [address] [place] [address] [phone] (fax) Echocardiogram-[facility] Name: TITO GONCALVES Study Date: 01/27/2024 08:18 AM B/P: 147 mmHg/62 mmHg HR: 67 bpm Date of : 1945 Location: [facility] Height: 72 in. Age: 79 year(s) Patient Room: [facility] Weight: 244 lb. Gender: Male Patient Status: [...] Procedure Staff Reading Group: [facility] Department Helper: MARLEY Donohue, RDCS Ordering Physician: LIONEL MENA Transthoracic echo (TTE) limited Result Date: 01/26/2024 1 1 [facility] Heart Station [address] [place] [address] [phone] (fax) Echocardiogram-[facility] Name: [...] left atrium appears e (more content not included)...[facility]05-04-2024 Note Cardiology Progress Note Subjective Subjective: No [...] 105/48 -- -- 69 -- -- -- 05/03/24 2015 (!) 119/95 36.5 ???C (97.7 ???F) Temporal [...] 86 QT Interval 316 QTC CALCULATION(BAZETT) 453 R-[place] 8 T Wave [place] 100 Impression Atrial fibrillation with rapid ventricular [...] 1 1 [facility] Heart Station [address] [place] [address] [phone] (fax) Echocardiogram-[facility] Name: TITO GONCALVES Study Date: 01/27/2024 08:18 AM B/P: 147 mmHg/62 mmHg HR: 67 bpm Date of : 1945 Location: [facility] Height: 72 in. Age: 79 year(s) Patient Room: 4517 Weight: 244 lb. Gender: Male Patient Status: [...] Procedure Staff Reading Group: [facility] Department Helper: MARLEY Donohue, RDCS Ordering Physician: LIONEL MENA Transthoracic echo (TTE) limited Result Date: 01/26/2024 1 1 [facility] Heart Station [address] [place] [id number] [phone] (fax) Echocardiogram-[facility] Name: [...] in size. Right ventr (more content not included)...[facility]05-04-2024 Note Physical Therapy Physical Therapy Evaluation & Treatment Patient Name: Tito Goncalves : 1945 Today's Date: 01/28/2024 Time in: 1:53 pm Time out: 2:20 pm Total time: 27 minutes 01/28/24 1422 PT Last Visit PT Received On 01/28/24 General Subjective Both RN and pt agreeable to PT this afternoon. Pt denies pain and asleep upon scenario writer entering room however easily awakens. Cognition Overall Cognitive Status WFL Arousal/Alertness Appropriate responses to stimuli Orientation Level Oriented X4 Following Commands Follows all commands and directions without difficulty Communication Intact Cognition Comments pt had difficulty navigating back to correct room after first bout of ambulation however after 2nd bout able to navigate back to room without external cues from scenario writer. Therapeutic Exercise Therapeutic Exercise Time Entry [...] tray table within reach. PT Assessment PT Assessment/MULLING MACHINE OPERATOR Summary Pt continues to progress towards goals [...] (from Physical Therapy) Active Problems Problem: [facility] Start Date: 01/27/24 Goal Start Date Expected [...] stable vital signs throughout session 01/27/24 02/10/24 --[facility] 01-28-2024 NoteHospital Medicine Daily Progress Note - 01/28/2024 11:20 AM; Room: 3167/3167-01 Admission: 01/24/2024 10:46 AM; Length of stay: 4 days THE HOSPITALIST TEAM PREFERS TO USE [employer] FOR COMMUNICATION 7AM-7PM. IF I DO NOT RESPOND WITHIN 15 MINUTES, PLEASE PAGE ME/CALL THROUGH THE BATTING MACHINE OPERATOR INSULATION. FROM 7PM-7AM, PLEASE PAGE [phone](COVR) Code Status: Full Code Barriers to Discharge: [...] complication and [facility] for over night monitoring to be [...] Paroxysmal atrial fibrillation ([facility]) Active Problems: Pericardial effusion Assessment and Plan [...] 40 mg, oral, Daily (more content not included)...[facility]05-03-2024 Note Attestation signed by Srinath Joseph MD [...] Progress Note - 01/27/2024 12:46 PM; Room: [facility]167- Admission: 01/24/2024 10:46 AM; Length of stay: 3 days THE HOSPITALIST TEAM PREFERS TO USE [employer] FOR COMMUNICATION 7AM-7PM. IF I DO NOT RESPOND WITHIN 15 MINUTES, PLEASE PAGE ME/CALL THROUGH THE BATTING MACHINE OPERATOR INSULATION. FROM 7PM-7AM, PLEASE PAGE [phone](COVR) Code Status: Full Code Barriers to Discharge: [...] Principal Problem: Paroxysmal atrial fibrillation ([facility]/HCC) Active Problems: Pericardial effusion Assessment and Plan [...] mg, oral, Nightly ami (more content not included)...[facility]05-03-2024 NoteUTP CARDIOLOGY INPATIENT PROGRESS NOTE Reason for [...] 86 QT Interval 316 QTC CALCULATION(BAZETT) 453 R-[place] 8 T Wave [place] 100 Impression Atrial fibrillation with rapid ventricular [...] systolic function is normal. (more content not included)...[facility]05-03-2024 Note Attestation signed by Jay Benitez PT at 01/27/2024 11:18 AM This scenario writer (PT) provided one-on-one supervision, direction of [...] ECHO showed pericardial effusion, pt went to distillery laborer for pericardiocentesis and currently has a [...] long-term current use of insulin ([facility]/HCC) Benign prostatic hyperplasia with urinary obstruction [...] Level of Function Prior Function Level of [place]: Independent with ADLs and functional transfers, Independent [...] device, No upper extremity (more content not included)...[facility]05-03-2024 NoteOccupational Therapy Occupational Therapy Evaluation Patient Name: [...] Alone Home Adaptive Equipment: Walker rolling, Cane (la, hhs, rts) Home Layout: One level Home Access: Stairs to enter without rails (4) Bathroom Shower/Tub: Walk-in shower Prior Level of Function Prior Function Level of [place]: Independent with ADLs and functional transfers, Independent [...] Eating meals?: None (Independent) Total Score OT [facility]: 21 Assessment/Plan OT Assessment OT [...] 5 times per wee (more content not included)...[facility]05-02-2024 Note Attestation signed by Lionel Mena MD [...] Goncalves Age - 79 y.o. - 1945 [facility] # - [id number] Date of Admission - 01/24/2024 10:46 AM [...] Results from last 7 days Lab Units 01/26/243 01/25/24 043 WBC AUTO 10*3/uL 12.08* 13.57* HEMOGLOBIN g/dL [...] Patient in limited echocar (more content not included)...[facility]05-02-2024 Note Attestation signed by Zoran Daniel MD [...] Value Ventricular Rate 52 Atrial Rate 52 MS Interval 184 QRS DURATION 84 QT Interval 424 QTC CALCULATION(BAZETT) 394 P [place] 79 R-[place] 51 T Wave [place] 76 Impression Sinus bradycardia Nonspecific T wave abnormality Abnormal ECG (more content not included)...[facility]05-02-2024 Note 01/26/24 1243 Admission Assessment Questions Verify insurance with patient Yes Do you understand medical disease or what brought you into the hospital? Yes Who is your current PCP? Dr Metz in [place] Can I schedule a follow up appointment [...] No Does the patient have a case maker assigned to them through their insurance? [...] able to send link and activate MyChart? [facility]05-01-2024 Note Attestation signed by Zoran Daniel [...] -- -- 74 16 98 % -- 01/25/245 -- -- -- 53 14 96 % -- 01/25/24419 -- -- -- 55 11 95 % -- 01/25/24 0418 70/53 -- -- -- -- -- -- 01/25/24 0 (more content not included)...[facility] 01-25-2024 NotePatient: Tito Goncalves Procedure Information Date/Time: 01/25/24 1800 Procedure: Pericardiocentesis Location: [facility] INSIDE BARREL LATHE OPERATOR 3 / [facility] VASCULAR [facility] (Cath) Providers: Oliver Crane MD [...] products. Plan discussed with attending. Additional Equipment [facility]sUnProMedica [facility]05-01-2024 Note CLINICAL INFORMATION: Ground level fall, [...] in this report. Electronically signed: Trenton Martinez. 6[facility]05-01-2024 NoteResponded to rr Hypotension fall Pt seen [...] ordered d/w cardiology pt to move to [facility]04-30-2024 NotePharmacy Dosing Service - Vancomycin Initial Consult Note Pharmacy has been consulted for the dosing and evaluation of Drug: Vancomycin Indication: surgical prophylaxis Other Antimicrobial Regimens: None Labs and Renal Function Total body weight: 112 kg (248 lb) [place] body weight: 77.6 kg (171 lb 1.2 [...] or questions Thank you, Rose Tomas, PharmD, 01/24/24[facility]04-30-2024 Note Patient: Tito Goncalves Procedure Information Date/Time: 01/24/24 1300 Procedure: Left atrial appendage closure (transvenous) - ADRIENNE WILL CALL Location: [facility] INSIDE BARREL LATHE OPERATOR 3 / [facility] (Cath) Providers: Oliver Crane MD Clinical information reviewed: Allergies Meds Physical Exam Airway Mallampati: II TM distance: >3 FB Neck ROM: full Cardiovascular Rhythm: regular Rate: normal Dental Pulmonary Abdominal Anesthesia Plan ASA 3 other (Conscious sedation.) Anesthetic plan and risks discussed with patient. Use of blood products discussed with patient who consented to blood products. Additional Equipment RequestsCincinnati VA Medical Center02-05-2024 Evaluation note* Encounter Date Diagnosis Assessment Notes [...] are maintaining regular scheduled appts with their battalion fire chief. Scheduled for LAAO procedure but postponed until [...] Exercise w/ goal of 10% weight loss [facility] Other 02-02-2024 NoteRight Eye Quality was good. Scan locations included subfoveal. Progression has been stable. Findings include abnormal foveal contour, disciform scar. Left Eye Quality was good. Scan locations included subfoveal. Progression has been stable. Findings include normal observations.SSM [facility] Health [id number] History of Present illness Narrative* Jose R [...] now given soon to be trip to [place] as well as side effects from last treatment in August. He was provided an Amsler grid to check daily and note any changes to this. He understands to get jacob of his retina specialist in [place] if there was a change. Will see [...] artificial tears were recommended. documented in this encounterSSM Saint Mary's Health [id number] History of Present illness Narrative* Pride Tirso - 03/16/2023 11:20 AM EDT Ortho Nurse - Established Patient Intake Room#: 5 Date: 03/16/2023 11:20 AM Patient: Tito Goncalves MR#: [id number] : 1945 Age: 78 y.o. 1yr R [...] allergy, and sulfa antibiotics. * Azul Rachel APRN-RECLAMATION KETTLE TENDER - 03/16/2023 11:20 AM EDT HPI: Patient [...] the findings of the clinical learning support teacher and agree with their assessment. Ortho Nurse - Established Patient Intake Room#: 5 Date: 03/16/2023 11:20 AM Patient: Tito Goncalves MR#: [id number] : 1945 Age: 78 y.o. 1yr R [...] allergy, and sulfa antibiotics. documented in this [facility]04-29-2023 Evaluation note* Encounter Date Diagnosis Assessment Notes Treatment Notes Treatment Clinical Notes Dec, Subarachnoid hemorrhage (ICD-10 - I60.9) [facility] Other 04-12-2023 Evaluation note* Encounter Date Diagnosis [...] are maintaining regular scheduled appts with their battalion fire chief. Dec, Obstructive sleep apnea (ICD-10 - G47.33) [...] and weight loss. Improved control of BS [facility] Other 02-15-2023 Evaluation note* Encounter Date Diagnosis Assessment Notes Treatment Notes Treatment Clinical Notes Oct, Cholecystitis (ICD-1 0 - K81.9) [facility] Other 02-14-2023 NotePatient Education Material [facility] FOLLOW UP CARE ? [...] physician?s office at: THANK YOU FOR CHOOSING [facility] ENDOS[facility] FOR YOUR PROCEDURE! [phone] This information is not intended to replace advice given to you by your health care provider. Make sure you discuss any questions you have with your health care provider. ExitCare? Patient Information ?2016 [employer]. Custom Education added 09/2018[facility]02-14-2023 NoteNursing Discharge Summary Entered On: [...] Sariah Schreiber RN R - 11/09/2022 8:43 [facility]SK[facility]-2023 Evaluation note* Encounter Date Diagnosis Assessment Notes [...] INR being monitored, no bleeding complications noted [facility] Other 10-13-2022 History of Present illness Narrative* Luis Wang LPN - 07/08/2022 11:20 AM EDT Ortho Nurse - Established Patient Intake Room#: 2 4 month Right TKA, some pain of 1-2 when weed eating, going great Date: 07/08/2022 11:51 AM Patient: Tito Goncalves MR#: [id number] : 1945 Age: 77 y.o. Referring Physician: [...] the findings of the clinical learning support teacher and agree with their assessment. Ortho Nurse - Established Patient Intake Room#: 2 4 month Right TKA, some pain of 1-2 when weed eating, going great Date: 07/08/2022 11:51 AM Patient: Tito Goncalves MR#: [id number] : 1945 Age: 77 y.o. Referring Physician: [...] allergy, and sulfa antibiotics. documented in this encounterAvita Health [id number] Hospital Discharge instructions Patient Education 05/03/2022 08:55:03 [...] urethra. Follow these instructions at home: Take flhh-drk-blqmisn and prescription medicines only as told by [...] 09/12/2006 Document Revised: 08/07/2019 Document Reviewed: 10/17/2017 [employer] Patient Education 2020 [employer]. Follow Up Care 04/27/2021 11:05:10 With:GAGE UMANZOR, Mc Blackman, URL Address: [facility] [address] , [place] [address]- [phone] When: Unknown Comments:PRN [facility] 07-14-2022 History of Present illness Narrative* Shannen Chahal - 04/08/2022 10:00 AM EDT Ortho Nurse - Established Patient Intake Room#: 5 Date: 04/08/2022 9:50 AM Patient: Tito Goncalves MR#: [id number] : 1945 Age: 77 y.o. 3wk S/P [...] allergy, and sulfa antibiotics. * Azul Rachel APRN-RECLAMATION KETTLE TENDER - 04/08/2022 10:00 AM EDT HPI: Tito [...] pertinent portions of the clinical learning support teacher documentation was reviewed and agree. EDYTA Ayala I have reviewed the findings of the clinical learning support teacher and agree with their assessment. EDYTA Ayala Ortho Nurse - Established Patient Intake Room#: 5 Date: 04/08/2022 9:50 AM Patient: Tito Goncalves MR#: [id number] : 1945 Age: 77 y.o. 3wk S/P [...] allergy, and sulfa antibiotics. documented in this [facility]06-21-2022 Miscellaneous Notes* Nursing Notes - Kirsten Crawford [...] RN - 02/18/2022 1:25 PM EDT 02/18/22 1914 Information Source Information Source patient Contact Information Submarine Cable Equipment Technician Name Gini Medrano RN Case Manager's Living [...] that he plans to return home with [facility]. The patient states that his daughter [...] assist with discharge plans. [facility]* Nursing Notes - Kirsten Crawford RN - 03/16/2022 3:01 PM EDT Discharge instructions gone over with pt and pt's daughter at this time by Regina GAVIN. Both, verbalize understanding and deny any further questions. Hemovac drain removed at this time, tip intact upon removal, pt tolerated well. [facility]06-21-2022 History of Present illness Narrative* Blanca [...] Transfer Skill: Sit To Stand, Rehab Eval [place] (Sit-Stand Transfers) (mod I) Physical Assist/Nonphysical Assist: Sit/Stand 1 person assist Weight-Bearing Restrictions: Sit/Stand weight-bearing as tolerated Assistive Device For Transfer: Sit/Stand armed chair Gait Skills, PT Eval Level of [place]: Gait (mod I) Weight-Bearing Restrictions: Gait weight-bearing as tolerated Assistive Device For Transfer: Gait 2 wheeled walker Gait Distance (600ft; patient demonstrates a good quality heel - toe pattern consistently throughtout treatment) Stair Negotiation [place] Level: Stair Negotiation supervision Physical Assist: Stair [...] has returned from PT. * Colin Fontaine [facility],PharmD - 03/16/2022 11:58 AM EDT AOP Patient Education on Meds to Beds Scripts AOP received prescriptions for Tito Goncalves for bedside delivery at discharge Prescriptions filled and ready Medication Copay Acetaminophen 325mg 4.00 Oxycodone 5mg 8.60 Tab-A-Lesly 4.00 Docusate 100mg 4.00 Total $ 20.60 Birgit Henriquez (Sonogram Technician) reviewed medications with patient regarding indications, directions [...] Sit to Stand, Rehab Eval Level of [place]: Sit/Stand contact guard Physical Assist/Nonphysical Assist: Sit/Stand 1 person assist Weight-Bearing Restrictions: Sit/Stand weight-bearing as tolerated Assistive Device for Transfer: Sit/Stand wheeled walker;armed chair Transfer Skill: Stand to Sit, Rehab Eval Level of [place]: Stand/Sit contact guard Physical Assist/Nonphysical Assist: Stand/Sit [...] Prior Functional Impairment in Daily Activity CURRENT [facility] Daily Activity Inpatient Short Form Putting on/Taking Off Lower Body Clothing 3 - A Little Assistance Bathing 3 - A Little Assistance Toileting 3 - A Little Assistance Putting on/Taking Off Upper Body Clothing 3 - A Little Assistance Grooming 3 - A Little Assistance Eating 4 - No Assistance [facility] Raw Score 19 CURRENT AM-[facility] [...] initiation of treatment Therapist Information License # [id number] In addition to above, ambulated with CGA using FWW. Reclined in chair at end of session with his call light and personal items placed in reach. Jennifer Saab OTR/L 03/16/2022 * Pato Gutierrez - 03/16/2022 11:46 AM EDT Pharmacy to Dose - Warfarin Note PATIENT: Tito Goncalves Room/Bed: [facility] Desired INR range: 2-3 Indication(s): Atrial Fibrillation Medications: No drug interactions were identified based on the patient's current therapy. Current Diet Status: Regular Recent bleeding/bleeding event: None noted Last labs: INR Date Value Ref Range Status 03/16/2022 1.37 (H) 0.85 - 1.10 Final Comment: 2.0-3.0 THERAPEUTIC RANGE 2.5-3.5 MECHANICAL VALVE RANGE Testing performed at [place], [place] [address] - ALBUMIN Date Value Ref Range Status 03/16/2022 3.3 (L) 3.5 - 5.0 G/dl Final - Plan: An order was placed for Coumadin 7.5 mg today x 1 based on INR = 1.37. A Pharmacist will continue to follow and make dose changes as clinically appropriate. Please contact pharmacy if there are any questions. Signed: Lopez Villafana Phone: [phone] Date/Time: 03/16/2022 11:46 AM * Yashira Valencia, [...] 3/5) LLE WFL Supine to Sit Mobility [place] Level: Supine->Sit stand-by assist Physical Assist: Supine->Sit (1 person) Bed Features/Set-up: Supine->Sit Head of bed elevated Skilled Rationale Verbal cues;Sequencing Sit to Stand Transfer [place] Level: Sit->Stand stand-by assist Physical Assist: Sit->Stand (1 person) Assistive Device: Sit->Stand 2 wheeled walker;gait belt Skilled Rationale Verbal cues;Hand placement;Sequencing Stand to Sit Transfer [place] Level: Stand->Sit stand-by assist Physical Assist: Stand->Sit (1 person) Assistive Device: Stand->Sit 2 wheeled walker;gait belt Skilled Rationale Verbal cues;Hand placement;Sequencing;Controlled descent for sitting Sitting Balance Static Sitting-Level of Assistance Independent Standing Balance Static Standing-Level of Assistance Stand-by assist Dynamic Standing-Level of Assistance Stand-by assist Standing-Balance Support 2 wheeled walker;Gait belt Skilled Rationale Verbal cues;Full extension to upright positioning/posture;Upright gaze/neck extension Gait Assessment [place] Level: Gait contact guard assist Physical Assist: [...] ARTHROPLASTY KNEE TOTAL Left 06/23/2015 CHOLECYSTECTOMY 2012 intermediate designer goals, to be achieved at discharge: 1. [...] (248 lb) 02/08/18 117.9 kg (260 lb) [place] body weight: 77.6 kg (171 lb 1.9 [...] plan. Patient plans to return home with [facility]. His daughter will be staying with [...] Warfarin and PT/INR management. Questions answered regarding [facility], patient denies any other questions or needs at this time. Referral information with orders for PT/INR faxed to [facility], spoke with staff who confirm start of care for tomorrow. Follow up appointment scheduled for 04/08/22 @ 10:00 am. * [employer] [facility],PharmD - 03/15/2022 6:24 PM EDT Pharmacy to Dose - Warfarin Note PATIENT: Tito Goncalves Room/Bed: [facility] Desired INR range: 2-3 Indication(s): Atrial Fibrillation Last labs: INR Date Value Ref Range Status 03/15/2022 1.36 (H) 0.85 - 1.10 Final Comment: 2.0-3.0 THERAPEUTIC RANGE 2.5-3.5 MECHANICAL VALVE RANGE Testing performed at [facility], [place], [place] [address] - ALBUMIN Date Value Ref Range Status 02/18/2022 3.8 3.5 - 5.0 G/dl Final - Plan: An order was placed for 5 mg based on current Home Dosage. A Pharmacist will continue to follow and make dose changes as clinically appropriate. Please contact pharmacy if there are any questions. Signed: Grupo Morgan RPh,PharmD, Pharmacist Phone: [phone] Date/Time: 03/15/2022 6:24 PM * Samantha Miner [...] you require anything further [facility]* Nursing Notes - Dian Roberts [...] anxious to head home and settle in. [facility] Hospital Discharge instructions* Discharge Instructions* Kirsten [...] days or until therapeutic with results to [facility]. , Contact Office ([phone]) if: > Total Knee ROM < 90 [...] sent through Care Everywhere. * docusate (oral/rectal) (Lebanese) * oxycodone (Lebanese) documented in [facility]* Plan of Care - Regina [...] discharge/transition of care. Outcome: Adequate for Discharge [facility]* Nursing Notes - Kirsten Crawford RN - 03/16/2022 11:39 AM EDT Assessment unchanged from previous by this nurse unless otherwise noted in flowsheet [facility]06-21-2022 Hospital course Narrative* Domenico Ferguson MD - 03/16/2022 8:54 AM EDT Images from the original note were not included. Discharge Summary Name: Tito Goncalves Age: 77 y.o. Birthday: 1945 Admit Date: 03/15/2022 8:10 AM Discharge Date: 03/16/2022 Discharge Time: 03/16/2022 Discharge Unit: [facility] Rehab unit Unit Length of [...] as: COUMADIN STOP taking these medications Glucosamine-Chondroitin 1761-8767 MG/30ML LIQD Follow-up: No follow-up provider specified. Upcoming Appointments (up to five)-Some appointments for Medical Center outpatient clinics or diagnostic testing locations are not displayed below Provider Department Dept Phone 04/08/2022 10:00 AM [facility] [phone] Total coordination of discharge care taking greater that 35 minutes documented in this [facility]06-21-2022 Note* Plan of Care - Birgit Thakur RN - 03/16/2022 3:25 AM EDT Problem: Patient Care Overview Goal: Plan of Care Review Outcome: Ongoing Flowsheets (Taken 03/16/2022 0300) Plan Of Care Reviewed With: patient Problem: [...] Devices: pillows Note: IVÁN Hose, Foot pumps [facility] markedup [employer] [id number] Note* Nursing Notes - Birgit Thakur RN - 03/16/2022 3:09 AM EDT Assessment remains unchanged unless otherwise noted in flow sheet. Pt denies pain. Neuro/pulses unchanged. New bag of NS hung at this time. Vitals WDL. Pt denies any needs and call light is in reach. [facility] markedup [employer] [id number] Note* Nursing Notes - Birgit Thakur RN - 03/15/2022 11:59 PM EDT Assessment remains unchanged unless otherwise noted in flow sheet. Pt denies any pain. Neuro/pulsesunchanged. NS infusing @ 100ml/hr and Ancef administered. Pt denies any needs and call light is in reach. [facility] markedup [employer] [id number] Note* Nursing Notes - Birgit Thakur RN - 03/15/2022 8:06 PM EDT RT called at this time due to O2 change from 1.5 to 1L. Pt also has home CPAP/BIPAP device. RT madeaware. [facility]* Nursing Notes - Araseli Ron RN - 03/15/2022 5:53 PM EDT Patient tolerating clear liquids at this time, diet advanced per orders. [facility] Consult note* Javier-Cameron Ferguson MD - 03/15/2022 4:10 PM EDT History and Physical Examination 03/15/22 4:10 PM Chief Complaint: Right total knee arthroplasty History of Present Illness: Patient is a 77 y.o. male presents for [facility] for elective right total knee arthroplastyDr. [...] mg by mouth daily. Historical Provider Glucosamine-Chondroitin 4682-0222 MG/30ML Liquid Take by mouth. Historical Provider [...] 81 mg by mouth daily. 03/04/2022 Glucosamine-Chondroitin 6233-0545 MG/30ML Liquid Take by mouth. Multiple Vitamins-Minerals [...] (6' 0.01 ) 106.1 kg (234 lb) 06/20/22 0838 165/84 97.9 F (36.6 C) Oral [...] OT, ST and SW. Domenico Ferguson MD [facility] Consult note* Domenico Ferguson MD - 03/15/2022 4:10 PM EDT History and Physical Examination 03/15/22 4:10 PM Chief Complaint: Right total knee arthroplasty History of Present Illness: Patient is a 77 y.o. male presents for [facility] for elective right total knee arthroplastyDr. [...] mg by mouth daily. Historical Provider Glucosamine-Chondroitin 9485-9578 MG/30ML Liquid Take by mouth. Historical Provider [...] 81 mg by mouth daily. 03/04/2022 Glucosamine-Chondroitin 3963-0693 MG/30ML Liquid Take by mouth. Multiple Vitamins-Minerals [...] SW. Domenico Ferguson MD documented in [facility]* Nursing Notes - Araseli Ron RN - 03/15/2022 2:26 PM EDT Patient to OR at this time. [facility]* Nursing Notes - Araseli Ron RN - 03/15/2022 11:57 AM EDT Patient assessment unchanged from previous. Patient ambulated to bathroom and voided. Patient denies any needs at this time. Call light in reach. [facility]* Nursing Notes - Gini Medrano RN - 02/18/2022 1:25 PM EDT 02/18/22 6914 Information Source Information Source patient Contact Information Submarine Cable Equipment Technician Name Gini Medrano RN Case Manager's Living [...] that he plans to return home with [facility]. The patient states that his daughter [...] to follow and assist with discharge plans. [facility]04-[facility] History of Present illness Narrative* Luis Wang LPN - 2022 1:10 PM EDT Ortho Nurse - Established Patient Intake Room#: 1 Right knee pain of 9, no interventions, falls, or injuries, came in today with left knee pain, left knee revision 2016 Dr Bedoya Date: 2022 1:06 PM Patient: Tito Goncalves MR#: [id number] : 1945 Age: 77 y.o. Referring Physician: [...] , Rfl: omeprazole [address] carlos, , Disp: , Rfl: propafenone 150 MG [...] a right total knee arthroplasty for optimal mcc management. PHYSICAL EXAM: This is an alert, [...] joint space, subchondral sclerosis, osteophyte formation, and ipdx-uc-pfne contact with posterior loosebodies. He has a [...] of limb, and ultimately loss of life. custodial expectations, risks and general implant surv ivorship were also discussed. Despite these risks, the patient would like to proceed with surgical planning. Today, we will initiate the pre-surgical process including nasal MRSA screening, scheduling an appointment for [facility] and the potential surgical date, and reviewing [...] Swelling Sulfa Antibiotics Swelling documented in [facility] Evaluation note* Encounter Date Diagnosis Assessment Notes Treatment Notes Treatment Clinical Notes Oct, Choledocholithiasis (ICD-10 - K80.50) Oct, Pancreatic cyst (ICD -10 - K86.2) [employer] Other Evaluation + Plan note No data available for this section [facility] evaluation note* Diagnosis Right knee pain, unspecified chronicity- Primary Pain in prosthetic joint, sequela [facility] encounter [facility]* Diagnosis Preop testing- Primary Preoperative [...] Hyposmolality and/or hyponatremia documented in this encounter [facility] noteNo InformationNortLancaster [facility] [employer] Other Evaluation note* Diagnosis Hx of total knee arthroplasty, right- Primary [facility] Diagnosis Hx of total knee arthroplasty, right- Primary documented in this encounter [facility] noteN/ADept. of Dermatology Evaluation note* Diagnosis Hx of total knee arthroplasty, right- Primary documented in this encounter [facility]* Diagnosis 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- Primary Age-related nuclear cataract of both eyes Dry eyes Unspecified tear film insufficiency [facility] Diagnosis Onset Date Resolution Status Atrial fibrillation acute Chronic kidney disease acute GERD (gastroesophageal reflux disease) acute Hemopericardium acute Hypercholesterolemia acute Hypertension acute CUBA (obstructive sleep apnea) acute [facility] Work Phone: Evaluation note* Diagnosis Onset Date Resolution Status Atrial fibrillation acute Chronic kidney disease acute Hemopericardium acute Hypertension acute Obesity acute CUBA (obstructive sleep apnea) acute Cellulitis of right upper extremity noneactive [facility] Work Phone: evaluation note* Diagnosis Onset Date Resolution Status Atrial fibrillation acute Chronic kidney disease acute Hemopericardium acute Hypertension acute Obesity acute CUBA (obstructive sleep apnea) acute Cellulitis of right upper extremity noneactive Atrial fibrillation acute Chronic kidney disease acute Hypertension acute Obesity acute CUBA (obstructive sleep apnea) acute Type 2 diabetes mellitus with hyperglycemia acute [facility] Work Phone: Evaluation note* Diagnosis Onset Date [...] diabetes mellitus with hyperglycemia acute [facility] Work Phone: evaluation note* Diagnosis Onset Date [...] with hyperglycemia acute COVID noneactive [facility] Work Phone: Evaluation note* Diagnosis Onset Date Resolution Status Anemia acute Atrial fibrillation acute Chest pain acute Chronic kidney disease acute Hypertension acute CUAB (obstructive sleep apnea) acute Type 2 diabetes mellitus with hyperglycemia acute Hypertension acute Type 2 diabetes mellitus with hyperglycemia acute COVID noneactive Abrasion of ear canal acute [facility] Work Phone: Evaluation note* Diagnosis PLMD (periodic [...] diabetes mellitus with hyperglycemia acute [facility] Work Phone: Evaluation note* Diagnosis 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- Primary Age-related nuclear cataract of both eyes Dry eyes Unspecified tear film insufficiency documented in this encounter [facility]* Diagnosis 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- Primary Dry eyes Unspecified tear film insufficiency Age-related nuclear cataract of both eyes Type 2 diabetes mellitus without complication, without long-term current use of insulin ([facility]) documented in this encounter [facility]* [...] dorsum of nose documented in this encounter [facility] HealthcareEvaluation note* Diagnosis Mohs defect of nose- Primary documented in this encounter [facility] HealthcareEvaluation note* Diagnosis Age-related nuclear cataract of both eyes- Primary documented in this encounter [facility] HealthcareEvaluation note* Diagnosis Age-related nuclear cataract of both eyes- Primary 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 documented in this encounter [facility] HealthcareEvaluation note* Diagnosis Skin cancer of nose- Primary Other malignant neoplasm of skin of other and unspecified parts of face documented in this encounter [facility] HealthcareEvaluation note* Diagnosis Melanocytic nevus of trunk- [...] skin Actinic keratosis documented in this encounter [facility] Healthcare[facility] note* Diagnosis Onset Date Resolution Status [...] h hyperglycemia acute January 09, 2025 9:37am [facility] Work Phone: Hisxkvs general Narrative - Reported* Type Description Date Medical History hyperlipidemia Medical History GERD Medical History HTN Medical History a.fib Medical History recurrent choledocholithiasis Surgical History LEFT KNEE Surgical History CHOLECYSTECTOMY 2013 Hospitalization History see above [facility] Other [facility] general Narrative - Reported* Type Description Date [...] stone removal 10/2022 Hospitalization History see above [facility] Other History general Narrative - Reported* Type [...] stone removal 10/2022 Hospitalization History see above [facility] Other History general Narrative - Reported* Type [...] History Colonoscopy 2020 Hospitalization History see above [facility] Other Hospital Discharge instructions Additional Instructions 1. Sleep on 2 pillows 2. You may shower late tomorrow afternoon, keep wounds dry and clean 3. Small amount of Vaseline to sutures twice daily 4. Tylenol or Motrin for discomfort 5. See Dr. Freitas in 1 [facility] Work Phone: Hospital Discharge instructions Additional Instructions sleep on 2 pillows ok to shower tomorrow am, keep wound dry and clean small amount of vasaline to sutures [address] Freitas in 1 [facility] Work Phone: Progress note No data available for this section [facility] reason for referral (narrative)* Name Reason for referral NA NA Dept. of Dermatology Rewbqi for referral (narrative)No reason for referral information availableSelect [facility] Work Phone: Reodvg for visit Narrative* Auth/Cert Specialty Diagnoses / Procedures Referred By Contac t Referred To Contact Diagnoses Osteoarthritis of right knee, unspecified osteoarthritis type Osteoarthritis of right knee, unspecified osteoarthritis type [M17.11] Procedures MS TOTAL KNEE ARTHROPLASTY ARTHROPLASTY KNEE TOTAL Pastor Bedoya MD [address] [place] [address] Referral ID Status Reason Start Date Expiration Date Visits Re quested Visits Authorized [id number] 02/01/2022 1 1 [facility] Summary Purpose Family History Relationship Condition Age [...] XR KNEE LEFT 3 VIEWS Azul Rachel, CAPTAIN CANNERY TENDER-RECLAMATION KETTLE TENDER [address] [place] [address] Specialty Diagnoses / Procedures Referred By Contac t Referred To Contact Diagnoses Pain in prosthetic joint, sequela Procedures XR KNEE LEFT 3 VIEWS Pastor Bedoya MD [address] [place] [id number] Referral ID Status Reason Start Date Expiration Date V isits Requested Visits Authorized [id number] New Request 2022 02/15/2023 1 1 Specialty Diagnoses / Procedures Referred By Contac t Referred To Contact Diagnoses Right knee pain, unspecified chronicity Procedures XR KNEE RIGHT 4+ VIEWS Pastor Bedoya MD [address] [place] [address] Referral ID Status Reason Start Date Expiration Date V isits Requested Visits Authorized [id number] New Request 01/15/2022 02/09/2023 1 1 Specialty Diagnoses / Procedures Referred By Contac t Referred To Contact Social Work Diagnoses Restless leg syndrome Stage 3a chronic kidney disease S/P total knee arthroplasty, right Paroxysmal atrial fibrillation Type 2 diabetes mellitus without complication, without long-term current use of insulin Domenico Ferguson MD [address] [place] [address] Referral ID Status Reason Start Date Expiration Date V isits Requested Visits Authorized [id number] New Request 03/16/2022 04/10/2023 1 1 Specialty Diagnoses / Procedures Referred By Contac t Referred To Contact Diagnoses Acute postoperative pain of right knee Samantha Miner [address] [place] [address] Referral ID Status Reason Start Date Expiration Date V isits Requested Visits Authorized [id number] New Request 03/15/2022 04/09/2023 1 1 Scheduling Instructions . Specialty Diagnoses / Procedures Referred By Contac t Referred To Contact Physical Therapy Diagnoses Hx of total knee arthroplasty, right Azul Rachel APRN-CNP [address] [place] [address] [facility] [address] [place] [address] Referral ID Status Reason Start Date Expiration Date V isits Requested Visits Authorized [id number] New Request 04/08/2022 05/03/2023 1 1 Specialty Diagnoses / Procedures Referred By Contac t Referred To Contact Diagnoses Hx of total knee arthroplasty, right Procedures XR KNEE RIGHT 3 VIEWS Azul Rachel APRN-CNP [address] [place] [address] Referral ID Status Reason Start Date Expiration Date V isits Requested Visits Authorized [id number] New Request 03/31/2022 04/25/2023 1 1 Specialty Diagnoses / Procedures Referred By Contac t Referred To Contact Diagnoses Hx of total knee arthroplasty, right Procedures XR KNEE RIGHT 3 VIEWS Pastor Bedoya MD [address] [place] [address] Referral ID Status Reason Start Date Expiration Date V isits Requested Visits Authorized [id number] New Request 07/02/2022 07/27/2023 1 1 Specialty Diagnoses / Procedures Referred By Contac t Referred To Contact Diagnoses Hx of total knee arthroplasty, right Procedures XR BONE LENGTH STUDY Pastor Bedoya MD [address] [place] [address] Referral ID Status Reason Start Date Expiration Date V isits Requested Visits Authorized [id number] New Request 07/02/2022 07/27/2023 1 1 Referral ID Status Reason Start Date Expiration Date V isits Requested Visits Authorized [id number] New Request 03/15/2023 04/08/2024 1 1 History [...] the findings of the clinical learning support teacher and agree with their assessment. Ortho Nurse Established Patient Intake Room#: 5 Date: 03/20/2020 11:10 AM Patient: Tito Goncalves MR#: [id number] : 1945 Age: 75 y.o. 3 yr [...] 03/20/2020 11:10 AM Patient: Tito Goncalves MR#: [id number] : 1945 Age: 75 y.o. 3 yr [...] follow up [facility] follow up, chest pain [phone] sinus problems Reason for Visit Atrial fibrillation Chronic kidney disease Hypertension Obesity CUBA (obstructive sleep apnea) Type 2 diabetes mellitus with hyperglycemia Anemia Atrial fibrillation Chest pain Chronic kidney disease Hypertension CUBA (obstructive sleep apnea) Type 2 diabetes mellitus with hyperglycemia Hypertension Type 2 diabetes mellitus with hyperglycemia COVID Chief Complaint [facility] follow up, chest pain [phone] sinus problems Rt ear pain Reason for Visit Anemia Atrial fibrillation Chest pain Chronic kidney disease Hypertension CUBA (obstructive sleep apnea) Type 2 diabetes mellitus with hyperglycemia Hypertension Type 2 diabetes mellitus with hyperglycemia COVID Abrasion of ear canal Chief Complaint [phone] sinus p roblems Rt ear pain wellness [...] with hyperglyce olga January 09, 2025 9:37am Chief Complaint Admit Date 3 month f/u January 09, 2025 9:3 7am Amb Documentation February 07, 2025 2:09p m [facility]:Acute Kidney Injury February 13, 2025 1 1:29am 3 month f/u April 02, 2025 10:09 am Reason for Visit Admit Date Anemia January [...] with hyperglyce olga January 09, 2025 9:37am Anemia February 13, 2025 11:29 am Atrial fibrillation February 13, 2025 11:29 am Chronic kidney disease February 13, 2025 11 :29am Diabetes mellitus with diabetic polyneur opathy February 13, 2025 11:29am GERD (gastroesophageal reflux disease) M ay 2024 11:29am Hypertension February 13, 2025 11:29 am Obesity February 13, 2025 11:29 am CUBA (obstructive sleep apnea) February 13, 2025 11:29am Prerenal azotemia February 13, 2025 11:29 am Type 2 diabetes mellitus with hyperglyce olga February 13, 2025 11:29am Anemia April 02, 2025 10:09 am Atrial fibrillation April 02, 2025 10:09 am Chronic kidney disease April 02, 2025 10 :09am Diabetes mellitus with diabetic polyneur opathy April 02, 2025 10:09am GERD (gastroesophageal reflux disease) J enrrique 2024 10:09am Hypertension April 02, 2025 10:09 am 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 10: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 Obesity April 02, 2025 10:09 am CUBA (obstructive sleep apnea) April 02, 2025 10:09am Type 2 diabetes mellitus with hyperglyce olga April 02, 2025 10:09am Additional Source Comments (unrecognized sect ion and content) No Status Records FoundNo Status Records FoundNo Status Records FoundNo Status Records FoundNo Status Records FoundNo Status Records FoundNo Status Records FoundNo Status Records FoundNo Status Records FoundNo Status Records FoundNo Status Records FoundNo Status Records Found INFORMATION SOURCE (unrecogn ized section and content) DATE CREATED AUTHOR 03/21/2018 [facility] DATE CREATED AUTHOR AUTHOR'S ORGANIZ ATION 06/15/2019 [facility] DATE CREATED AUTHOR AUTHOR'S ORGANIZ ATION 03/25/2022 [facility] DATE CREATED AUTHOR AUTHOR'S ORGANIZ ATION [facility]/04/2022 [facility] DATE CREATED AUTHOR AUTHOR'S ORGANIZ ATION 10/04/2022 [facility] DATE CREATED AUTHOR AUTHOR'S ORGANIZ ATION 02/02/2023 [facility] DATE CREATED AUTHOR AUTHOR'S ORGANIZ ATION 03/05/2023 [facility] DATE CREATED AUTHOR AUTHOR'S ORGANIZ ATION 03/20/2023 [facility] DATE CREATED AUTHOR AUTHOR'S ORGANIZ ATION 07/12/2023 [facility] DATE CREATED AUTHOR AUTHOR'S ORGANIZ ATION 11/04/2024 [facility] DATE CREATED AUTHOR AUTHOR'S ORGANIZ ATION 01/04/2025 [facility] EP[facility] DATE CREATED AUTHOR AUTHOR'S ORGANIZ ATION 01/13/2025 [facility] Reason for Visit (unrecogniz ed section and content) Reason Comments Follow-up Status Reason Specialty Diagnoses / Procedures Referred By Contact Referred To Contact New Request Diagnoses History of revision of total replacement of left knee joint Procedures XR KNEE LEFT 3 VIEWS Azul Rachel, CAPTAIN CANNERY TENDER-RECLAMATION KETTLE TENDER [address] [place] [address] Reason Comments Pain Specialty Diagnoses / Procedures Referred By Contac t Referred To Contact Diagnoses Pain in prosthetic joint, sequela Procedures XR KNEE LEFT 3 VIEWS Pastor Bedoya MD [address] [place] [address] Referral ID Status Reason Start Date Expiration Date V isits Requested Visits Authorized [id number] New Request 2022 02/15/2023 1 1 Specialty Diagnoses / Procedures Referred By Contac t Referred To Contact Diagnoses Right knee pain, unspecified chronicity Procedures XR KNEE RIGHT 4+ VIEWS Pastor Bedoya MD [address] [place] [address] Referral ID Status Reason Start Date Expiration Date V isits Requested Visits Authorized [id number] New Request 01/15/2022 02/09/2023 1 1 Specialty Diagnoses / Procedures Referred By Contac t Referred To Contact Diagnoses Hx of total knee arthroplasty, right Procedures XR KNEE RIGHT 3 VIEWS Azul Rachel, CAPTAIN CANNERY TENDER-RECLAMATION KETTLE TENDER [address] [place] [address] Referral ID Status Reason Start Date Expiration Date V isits Requested Visits Authorized [id number] New Request 03/31/2022 04/25/2023 1 1 Reason Comments Post Op Visit Specialty Diagnoses / Procedures Referred By Contac t Referred To Contact Diagnoses Hx of total knee arthroplasty, right Procedures XR KNEE RIGHT 3 VIEWS Pastor Bedoya MD [address] [place] [address] Referral ID Status Reason Start Date Expiration Date V isits Requested Visits Authorized [id number] New Request 07/02/2022 07/27/2023 1 1 Referral ID Status Reason Start Date Expiration Date V isits Requested Visits Authorized [id number] New Request 03/15/2023 04/08/2024 1 1 Reason [...] End: June 04, 2024 Blanca Lay APRN TRANSPORT AIDE-C Attending Provider Active Start: May End: June [...] February 27, 2024 End: February 27, 2024 Programming Coordinator Relationship Specialty Start Date End Date Augustine Metz DO [address] [place] [address] PCP - General Internal Medicine 01/24/17 Programming Coordinator Relationship Specialty Start Date End Date Augustine Metz DO [address] [facility] [place] [address] PCP - General Internal Medicine 01/24/17 Programming Coordinator Relationship Specialty Start Date End Date Augustine Metz DO [address] [facility] [place] [address] PCP - General Internal Medicine 01/24/17 Programming Coordinator Relationship Specialty Start Date End Date Augustine Metz DO [address] [facility] [place] [address] PCP - General Internal Medicine 01/24/17 Programming Coordinator Relationship Specialty Start Date End Date IsaíasAugustine [address] [facility] [place] [address] PCP - General Internal Medicine 01/24/17 Programming Coordinator Relationship Specialty Start Date End Date Augustine Metz DO [address] [facility] [place] [address] PCP - General Internal Medicine 01/24/17 Programming Coordinator Relationship Specialty Start Date End Date IsaíasAugustineDO [address] [facility] [place] [address] PCP - General Internal Medicine 01/24/17 Programming Coordinator Relationship Specialty Start Date End Date Augustine Metz DO [address] [facility] [place] [address] PCP - General Internal Medicine 01/24/17 Programming Coordinator Relationship Specialty Start Date End Date Augustine Metz DO [address] [facility] [place] [address] PCP - General Internal Medicine 01/24/17 Programming Coordinator Relationship Specialty Start Date End Date Augustine Metz MD [address] [place] [phone] PCP - General Internal Medicine 06/02/23 Programming Coordinator Relationship Specialty Start Date End Date Augustine Metz MD [address] [place] [phone] PCP - General Internal Medicine 06/02/23 Team [...] January 31, 2024 End: January 31, 2024 Programming Coordinator Relationship Specialty Start Date End Date Augustine Metz MD [address] [place] [address] PCP - General Internal Medicine 06/02/23 Christin Bolton MD [address] [place] [address] Referring Physician Dermatology 02/15/24 Augustine Freitas DO [address] [place] [address] Otolaryngology 02/15/24 Programming Coordinator Relationship Specialty Start Date End Date Augustine Metz MD [address] [place] [address] PCP - General Internal Medicine 06/02/23 Christin Bolton MD [address] [place] [address] Referring Physician Dermatology 02/15/24 Augustine Freitas DO [address] [place] [address] Otolaryngology 02/15/24 Team Status: Active Member Role Status Dates Augustine Metz DO Primary Care Provide r, Attending Provider Active Start: June 27, 2024 Team Status: Inactive Member Role Status Dates Augustine Metz DO Primary Care Provide r, Attending Provider Active Start: July 09, 2024 End: July 09, 2024 Programming Coordinator Relationship Specialty Start Date End Date Augustine Metz MD PCP - General Internal Medicine 06/02/23 Christin Bolton MD [address] [place] [address] Referring Physician Dermatology 02/15/24 Augustine Freitas DO [address] [place] [address] Otolaryngology 02/15/24 Programming Coordinator Relationship Specialty Start Date End Date Augustine Metz MD PCP - General Internal Medicine 06/02/23 Christin Bolton MD [address] [place] [address] Referring Physician Dermatology 02/15/24 Augustine Freitas DO [address] [place] [address] Otolaryngology 02/15/24 Programming Coordinator Relationship Specialty Start Date End Date Augustine Metz MD [address] [facility] [place] [address] PCP - General Internal Medicine 06/02/23 Christni Bolton MD [address] [place] [address] Referring Physician Dermatology 02/15/24 Augustine Freitas, DO [address] [place] [address] Otolaryngology 02/15/24 Programming Coordinator Relationship Specialty Start Date End Date Augustine Metz MD [address] [place] [address] PCP - General Internal Medicine 06/02/23 Christin Bolton MD [address] [place] [address] Referring Physician Dermatology 02/15/24 Augustine Freitas DO [address] [place] [address] Otolaryngology 02/15/24 Programming Coordinator Relationship Specialty Start Date End Date Augustine Metz MD [address] [place] [address] PCP - General Internal Medicine 06/02/23 Christin Bolton MD [address] [place] [address] Referring Physician Dermatology 02/15/24 Augustine Freitas DO [address] [place] [address] Otolaryngology 02/15/24 Programming Coordinator Relationship Specialty Start Date End Date Augustine Metz MD [address] [place] [address] PCP - General Internal Medicine 06/02/23 Christin Bolton MD [address] [place] [address] Referring Physician Dermatology 02/15/24 Augustine Freitas DO [address] [place] [address] Otolaryngology 02/15/24 Programming Coordinator Relationship Specialty Start Date End Date Augustine Metz MD [address] [place] [address] PCP - General Internal Medicine 06/02/23 Christin Bolton MD [address] [place] [address] Referring Physician Dermatology 02/15/24 Augustine Freitas, DO [address] [place] [address] Otolaryngology 02/15/24 Programming Coordinator Relationship Specialty Start Date End Date Augustine Metz MD [address] [place] [address] PCP - General Internal Medicine 06/02/23 Christin Bolton MD [address] [place] [address] Referring Physician Dermatology 02/15/24 Augustine Freitas DO [address] [place] [address] Otolaryngology 02/15/24 Programming Coordinator Relationship Specialty Start Date End Date Augustine Metz MD [address] [facility] [place] [address] PCP - General Internal Medicine 06/02/23 Christin Bolton MD [address] [place] [address] Referring Physician Dermatology 02/15/24 Augustine Freitas DO [address] [place] [address] Otolaryngology 02/15/24 Programming Coordinator Relationship Specialty Start Date End Date Augustine Metz MD [address] [facility] [place] [address] PCP - General Internal Medicine 06/02/23 Christin Bolton MD [address] [place] [address] Referring Physician Dermatology 02/15/24 Augustine Freitas DO [address] [place] [address] Otolaryngology 02/15/24 Team Status: Active Member Role [...] October 10, 2024 End: October 10, 2024 Programming Coordinator Relationship Specialty Start Date End Date Augustine Metz MD [address] [facility] [place] [address] PCP - General Internal Medicine 06/02/23 Christin Bolton MD [address] [place] [address] Referring Physician Dermatology 02/15/24 Augustine Freitas DO [address] [place] [address] Otolaryngology 02/15/24 Programming Coordinator Relationship Specialty Start Date End Date Augustine Metz MD [address] [place] [address] PCP - General Internal Medicine 06/02/23 Christin Bolton MD [address] [place] [address] Referring Physician Dermatology 02/15/24 Augustine Freitas DO [address] [place] [address] Otolaryngology 02/15/24 Programming Coordinator Relationship Specialty Start Date End Date Augustine Metz MD [address] [place] [address] PCP - General Internal Medicine 06/02/23 Christin Bolton MD [address] [place] [address] Referring Physician Dermatology 02/15/24 Augustine Freitas DO [address] [place] [address] Otolaryngology 02/15/24 Programming Coordinator Relationship Specialty Start Date End Date Augustine eMtz MD [address] [place] [address] PCP - General Internal Medicine 06/02/23 Christin Bolton MD [address] [place] [address] Referring Physician Dermatology 02/15/24 Augustine Freitas DO [address] [place] [address] Otolaryngology 02/15/24 Paulina Barboza OD [facility] [place] [address] Referring Physician Optometry 12/28/24 Programming Coordinator Relationship Specialty Start Date End Date Augustine Metz MD [address] [place] [address] PCP - General Internal Medicine 06/02/23 Chirstin Bolton MD [address] [facility] [address] [facility] [address] [place] [address] Referring Physician Dermatology 02/15/24 Augustine Freitas DO [address] [place] [address] Otolaryngology 02/15/24 Paulina Barboza OD [address] [place] [address] Referring Physician Optometry 12/28/24 Programming Coordinator Relationship Specialty Start Date End Date Augustine Metz MD [address] [place] [address] PCP - General Internal Medicine 06/02/23 Christin Bolton MD [address] [place] [address] Referring Physician Dermatology 02/15/24 Augustine Freitas, DO [address] [place] [address] Otolaryngology 02/15/24 Paulina Barboza OD [address] [place] [address] Referring Physician Optometry 12/28/24 Programming Coordinator Relationship Specialty Start Date End Date Augustine Metz MD [address] [place] [address] PCP - General Internal Medicine 06/02/23 Christin Bolton MD [address] [facility] [address] [place] [address] Referring Physician Dermatology 02/15/24 Augustine Freitas, DO [address] [place] [address] Otolaryngology 02/15/24 Paulina Barboza OD [address] [place] [address] Referring Physician Optometry 12/28/24 Programming Coordinator Relationship Specialty Start Date End Date Augustine Metz MD [address] [place] [address] PCP - General Internal Medicine 06/02/23 Christin Bolton MD [address] [facility] [address] [place] [address] Referring Physician Dermatology 02/15/24 Augustine Freitas DO [address] [place] [address] Otolaryngology 02/15/24 Paulina Barboza OD [address] [place] [address] Referring Physician Optometry 12/28/24 Team Status: Inactive Member Role Status Dates Augustine Metz DO Primary Care Provider Active Start: January 09, 2025 End: January 09, 2025 Augustine Metz DO Attending Provider Active Sta rt: January 09, 2025 End: January 09, 2025 Team Status: Active Member Role Status Dates Augustine Metz DO Primary Care Provider Active Start: January 11, 2025 Maggy Murphy Attending Provider Active Start: January 11, 2025 Team Status: Active Member Role Status Dates Augustine Metz DO Primary Care Provider Active Start: February 06, 2025 Krzysztof Carmona DO Attending Provider Active S tart: February 06, 2025 Team Status: Active Member Role Status Dates Augustine Metz DO Primary Care Provider Active Start: February 07, 2025 Esther Larson Attending Provider Active Start: Zohaib y 2024 Team Status: Active Member Role Status Dates Augustine Metz DO Primary Care Provider Active Start: February 07, 2025 Lisa Lacey CMA Attending Provider Active Start: February 07, 2025 Team Status: Active Member Role Status Dates Augustine Metz DO Primary Care Provider Active Start: February 12, 2025 Esther Larson Attending Provider Active Start: Zohaib moore 2024 Team Status: Inactive Member Role Status Dates Augustine Metz DO Primary Care Provider Active Start: February 13, 2025 End: February 13, 2025 Augustine Metz DO Attending Provider Active Sta rt: February 13, 2025 End: February 13, 2025 Team Status: Active Member Role Status Dates Augustine Metz DO Primary Care Provider Active Start: February 22, 2025 Augustine Metz DO Attending Provider Active Sta rt: February 22, 2025 Team Status: Inactive Member Role Status Dates Augustine Metz DO Primary Care Provider Active Start: April 02, 2025 End: April 02, 2025 Augustine Metz DO Attending Provider Active Sta rt: April 02, 2025 End: April 02, 2025 Scheduled Active and Recently Administ ered [...] mmHg 08 (Given - Provid er: Kirsten Crawford, RN) atorvastatin (LIPITOR) tablet 10 mg 10 mg, Oral, DAILY AT BEDTIME, First dose on Tue03/15/22 at 2100, Until Discontinued 2106 (Given - Provider: Birgit Thakur RN) carveDILOL (COREG) tablet 6.25 mg 6.25 mg, Oral, EVERY 12 HOURS, First dose on Tue03/15/22 at 2100, Until Discontinued, 2106 (Given - Provider: Birgit Tahkur RN - Comment: 125/69 M 92 HR [...] to the hypoglycemia management protocol on Ellucid: Y-HE-Kjnxdeltfirs Management Protocol insulin regular (HumuLIN R;NovoLIN R) [...] RN)1450 ($$New Bag$$ - Provider: Pankaj Eric APRN-MANAGER OF HOUSEKEEPING)1606 (Paused - Provider: Chino Puga CRNA - [...] 2 g, Intravenous, Administer over 30 Minutes, TELE MARKETING EXECUTIVE TO PROCEDURE, 1 dose, Starting on Tue03/15/22 at 0849, Until Discontinued, Other, Pre-operative antibiotic, For 15 Minutes, Pre-op/Pre-Proc 1440 (Given - Provider: Lambert Eric, CAPTAIN CANNERY TENDER-[facility]) dextrose 10% IV solution 250 [...] less than 60 mg/ml. If unresponsive call WATER USE INSPECTOR HYDROmorphone (DILAUDID) injection 0.5 mg 0.5 mg, [...] to the hypoglycemia management protocol on Ellucid: R-WU-Wrzlpfmywpce Management Protocol
And dextrose 10% IV solution [...] less than 60 mg/ml. If unresponsive call WATER USE INSPECTOR
And NOTIFY PHYSICIAN, Blood Glucose LESS THAN 70 mg/dl or greater than 400 mg/dl (CANCELED) Routine, CONTINUOUS, Starting on Tue03/15/22 at 1255, Until Specified
Who to Notify: TRANSPORT AIDE/Physician
For all Blood Glucose LESS THAN 70 mg/dl, or greater than 400 mg/dl notify TRANSPORT AIDE/Physician Goals (unrecognized section and content) Goals [...] BE BASED ON THE PRIMARY CLINICAL RECORDS. [facility]. provides no warranty or guarantee of the accuracy or completeness of information in this document.
== END 2025-05-07 07:21 | disposition home or self-care (01) ==
PROVIDERS: PCP Internal Medicine; Visit Provider Internal Medicine
DX: E11.65 Type 2 diabetes mellitus with hyperglycemia (principal)
CPT/HCPCS: 36415; 83036

== ENCOUNTER 2025-06-26 12:14 | Outpatient (OUT) | payer MEDICARE, OTHER, SELFPAY ==
--- OUTSIDE RECORDS SUMMARY | 2025-06-26 12:16 | XMS_ITS | Clinical Summary ---
Author Organization [facility] Address [address] [place] [address] Care Team Providers Care Store Person Name Role Phone Augustine Frost DO Primary Care Provider [phone] Allergies Active Allergy Reactions Criticality Noted Date [...] times daily. 60 capsule 2 Active therapeutic multivitamin-insurance claims examiner als tablet Take 1 tablet by [...] 2021 HBA1C TEST 08/21/2022 02/18/2022 COVID-19 VACCINE (6 - season) 2025 06/22/2022, 04/17/2022, 06/22/2021, Additional history exists INFLUENZA VACCINE (#1) 2025 , 07/15/2021, 07/09/2020, Additional history exists POTASSIUM Discontinued 03/16/2022, 02/18/2022 ZOSTER (SHINGLES) VACCINE Completed 2022, 01/01/2023, 07/18/2013 HEP B VACCINE Aged Out No longer elig ible based on patient's age to complete this topic Medical Devices Implanted Type Area Retail Service Representative Device Identifier Shelf Expiration Date Model / Serial / Lot Palacos R 1 X 40 - [id number] Implanted:Qty: 2 on 03/15/2022 by Pastor Brito MD at [facility] REV LOC Right: Knee 05/26/2026 / / [id number] Attune Patella Medialized Dome Implanted:Qty: 1 on 03/15/2022 by Pastor Brito MD at [facility] REV LOC Right: Knee DEPUY 11/23/2026 1518-20-041 / [id number] / [id number] Attune Knee System Tibial Base Fixed Bearing Implanted:Qty: 1 on 03/15/2022 by Pastor Brito MD at [facility] REV LOC Right: Knee DEPUY 06/25/2031 1506-70-007 / [id number] / [id number] Attune Femoral Posterior Stabilized Implanted:Qty: 1 on 03/15/2022 by Pastor Brito MD at [facility] REV LOC Right: Knee 12/24/2030 / [id number] / [id number] Attune Tibial Insert Fixed Bearing Posterior Stabilized Implanted:Qty: 1 on 03/15/2022 by Pastor Brito MD at [facility] REV LOC Right: Knee DEPUY 11/23/2024 1516-40-805 / / [id number] Procedures Procedure Name Priority Date/Time Associated Diagnosis Comments RENAL FUNCTION PANEL Today 03/16/2022 5:14 AM EDT HEMOGLOBIN A1C Routine 02/18/2022 12:30 PM EDT Pre-op testing from Last 3 Months or Most Recently Relevant to Health Maintenance Results * (ABNORMAL) RENAL FUNCTION PANEL (03/16/2022 5:14 AM EDT) [facility] Glucose 230(H) 70 - 100 MG/DL [address] Comment: NORMAL <100 mg/dL PREDIABETES 101-126 mg/dL DIABETES 126 mg/dL or higher BUN 22(H) 7 - 20 MG/DL [address] CREATININE SERUM 1.20 0.7 - 1.2 MG/DL [address] SODIUM 136(L) 137 - 145 MMOL/L [address] Potassium 4.5 3.5 - 5.1 MMOL/L [address] CHLORIDE 106 98 - 107 MMOL/L [address] Comment:Please note: Triglyc eride levels of 600mg/dL or higher may positively bias chloride results by approximately 2.1 mmol CARBON DIOXIDE (CO2) 23 22 - 30 MMOL/L [address] Albumin 3.3(L) 3.5 - 5.0 G/dl [address] CALCIUM 7.9(L) 8.4 - 10.2 MG/DL [address] PHOSPHORUS 2.9 2.5 - 4.5 MG/DL [address] ESTIMATED GFR, NON AMER 63 ml/min/1. 73sq.m [address] ESTIMATED GFR, 76 ml/min/1. 73sq.m [address] GFR COMMENT Average GFR for 70+ years old = 75. [address] Comment: Chronic Kidney disease, GFR = <60. Kidney failure, GFR = <15. The GFR estimate is not adjusted for extreme body surface area or acute process, nor has it been validated for women or ethnic groups other than and . Testing performed at [place], [place] [address] 03/16/2022 5:14 AM EDT 03/16/2022 5:38 AM EDT us Domenico Ferguson MD CHEMISTRY ORDERABLES Fi nal Result [address] [address] * (ABNORMAL) HEMOGLOBIN A1C (02/18/2022 12:30 PM EDT) Pathologist [facility] HEMOGLOBIN A1C 7.3(H) <6 % [address] Comment: NORMAL <5.7% PREDIABETES 5.7-6.4% DIABETES 6.5% OR HIGHER Estimated Average Glucose 163 mg/dL [address] Blood 02/18/2022 12:3 0 PM EDT 02/18/2022 12:49 PM EDT us Kirsty Lindsey PA-C HEMATOLOGY ORDERABLES Final Resu lt [address] [address] from Last 3 Months or Most Recently Relevant to Health Maintenance Insurance Medicare A and B Medicare Supplement Advance Directives For more information, please contact: [phone] (7:30 AM - 6PM [facility], Tuesday-Tuesday) * Full Code (Latest Code Status on File) Date Activated Date Inactivated Comments 03/15/2022 4:44 PM Care Teams Store Person Relationship Specialty Start Date End Date Augustine Frost DO PCP - General Internal Medicine 01/24/17
--- OUTSIDE RECORDS SUMMARY | 2025-06-26 12:16 | XMS_ITS | Encounter Summary ---
Author Organization [facility] Address [address] [place] [address] Care Team Providers Care Icu Registered Nurse Name Role Phone Santosh Augustine Ramirez DO Primary Care Provider [phone] Donte Montenegro MD Unavailable [phone] Augustine Freitas DO Unavailable [phone] Paulina Barboza OD Unavailable Encounter Details Date Type Department Care Team (Late st Contact Info) Description 10/17/2024 External Result Encounter [facility] External Department Unsolicited Augustine Freitas, DO [address] [place] [address] Social History Tobacco Use Types Packs/Day Years [...] Description 07/04/2025 9:10 AM EDT Office Visit [facility] [address] [place] [address] Obdulia Shah APRN-TOBI [address] [place] [address] 07/19/2025 9:00 AM EDT Office Visit [facility] [address] [place] [address] Lamin Wynne, DO [address] [place] [address] documented as of this encounter Procedures Procedure Name Priority Date/Time Associated Diagnosis Comments ECG 12-LEAD 10/17/2024 3:12 PM EST documented in this encounter Results * ECG 12 lead (10/17/2024 3:12 PM EST) 10/17/2024 3:12 PM EST Narrative [facility] 10/17/2024 4:52 PM EST [address] [address] Electrocardiograph Report Signed Patient: Tito Goncalves MR#: [id number] 70 : 1945 Acct:[id number] Age/Sex: 79 / M ADM Date: 10/17/24 Loc: Room: Type: [facility] Attending Dr: Augustine Freitas DO Ordering Provider: [...] in Lateral leads Confirmed by Darien Rubio ([id number]) on 10/17/2024 4:52:19 PM Referred By: Electronically Signed By: Darien Rubio Transcribed By: MUS Signed By Darien Rubio MD 10/17/24 4170 Procedure Note Jose Eduardo Rubio MD - 10/17/[address] [address] Electrocardiograph Report Signed Patient: Tito Goncalves RMR#: [id number] 70 : 6Acct:[id number] Age/Sex: 79 / MADM Date: 10/17/24 Loc: PS Room:Type: [facility] Attending Dr: Augustine Freitas DO Ordering Provider: [...] waves in Lateralleads Confirmed by Darien Rubio ([id number]) on 10/17/2024 4:52:19 PM Referred By: Electronically Signed By: Darien Rubio Transcribed By: MUS Signed By Darien Rubio MD 10/17/24 1652 us Augustine Freitas DO ECG ORDERABLES Final Resul t [facility] [address] [place] [address], documented in this encounter Visit Diagnoses Not on filedocumented in this encounter Care Teams Icu Registered Nurse Relationship Specialty Start Date End Date Augustine Frost DO PCP - General Internal Medicine 06/02/23 Donte Montenegro MD [address] [place] [address] Referring Physician Dermatology 02/15/24 Augustine Freitas DO [address] [place] [address] Otolaryngology 02/15/24 Paulina Barboza OD [address] [place] [address] Referring Physician Optometry 12/28/24 documented as of this encounter
--- OUTSIDE RECORDS SUMMARY | 2025-06-26 12:16 | XMS_ITS | Continuity of Care Document ---
Author Organization [facility] Address [address] [place] [address] Phone [phone] Care Team Providers Care Wet Machine Tender Name Role Phone Rudy Kahn DO Care Team Information Plastic Parts Fabricator Trimmer U suzannaailCHUY Hays M.D. Care Team Information Receiv er Unavailable Augustine Frost DO Primary Care Physician Unavail able Allergies and adverse reactions Active Allergies Criticality Reaction Severity Comments Date Penicillin Unable to assess criticality Hives Severe 06/09/2021 Sulfa Antibiotics Unable to assess criticality unknown 06/09/2021 Iodine Unable to assess criticality Anaphylaxis Severe 06/09/2021 Medications Active Medications SIG Qnty Indications Order ing Provider Date [id number] Capsules 1 by mouth three times a day 90caps Chuy Weldon M.D. 06/17/2021 Amlodipine Blzqdobl54on Tablets Take 1 Tablet By Mouth Once Daily Augustine Frost DO Warfarin Guksxh4ql Tablets Take 1 & 1 2 (One & One Half) Tablets By Mouth Once Daily Augustine Frost DO Warfarin Sodium7.5mg Tablets Take 1 Tablet By Mouth Once Daily One Day A Week Or as Directed By Clinic Augustine Frost DO Benazepril BXM52su Tablets Take 1 Tablet By Mouth Once Daily Augustine Frost DO Atorvastatin Fwxjteh31gg Tablets Take 1 Tablet By Mouth Once Daily In The Evening Augustine Frost DO Lilsqkqoea5vz Tablets Take 1 To 2 Tablets By Mouth AT Bedtime Unknown Carvedilol6.25mg Tablets Take 1 Tablet By Mouth Twice Daily Augustine Frost DO Trazodone WQJ70vp Tablets Take 1 Tablet By Mouth Every Day AT Bedtime Augustine Frost DO Cjldcsmsnd16rg Capsules DR 1 by mouth every day Unknown Aspirin Adult Low Xdsowsfc36yd Tablets DR 1 by mouth every day Unknown Multi VitaminTablets take 1 tablet by mouth once daily. Unknown Propafenone TQL162bu Tablets take 1 tablet by mouth every 8 hours. Unknown Tylenol 500 mg 2 tabs q 8 hrs Unknown [employer] Covid-19 Tmokefk28kpb/0.3ML Suspension Unknown Glucosamine-Chondroitin Capsules 1 tab by mouth every day as needed Unknown Vital Signs Date Vital Result Comment 06/09/2021 3:41pm Weight 241.00 lb Weight 109.318 kg BP Systolic 113 mmHg BP Diastolic 61 mmHg Heart Rate 66 /min Body Temperature 98.1 F Height 72 inches 6'0 BMI (Body Mass Index) 32.7 kg/m2
--- OUTSIDE RECORDS SUMMARY | 2025-06-26 12:16 | XMS_ITS | Clinical Summary ---
Author Organization [facility] Address [address] [place] [address] Care Team Providers Care Windows Deployment Technician Name Role Phone Augustine Frost DO Primary Care Provider [phone] Donte Montenegro MD Unavailable [phone] Augustine Freitas DO Unavailable Paulina Barboza OD Unavailable Allergies Active Allergy Reactions Criticality Noted Date Comments Iodine Anaphylaxis,Swelling High 08/31/2009 Other Reaction(s): Unknown, Unknown Mouth swelled shut Mouth swelled shut Mouth swelled shut Other Other 06/30/2023 Penicillin G Hives 10/20/2012 Other Reaction(s): Unknown, Unknown Penicillin V 01/22/2023 Penicillins Hives High 08/01/1963 Other Reaction(s): Unknown Shellfish Allergy Swelling,Other High 08/31/2009 Shellfish Protein-Containing Drug Products Swelling 10/20/2012 Sulfa Antibiotics Rash,Swelling Low [...] 300 MG capsule 3 Active HYDROcodone-aide taminophen ([place]) 7.5-325 MG tablet Active levETIRAcetam (Keppra) 500 [...] Dermatology [address] [place] [phone] Obdulia Shah, ENGINEERING MANAGER ELECTRONICS-CRANE CREW SUPERVISOR [address] [place] [address] 07/19/2025 9:00 AM EDT Office Visit [facility] [address] [place] [phone] Lamin Wynne DO [address] [place] [address] Health Maintenance Due Date Last Done Comments Pneumococcal Vaccine: 65+ Ye ars (2 of 2 - PCV) 12/25/2014 12/25/2013 Influenza Vaccine (#1) 2025 , 06/29/2022, 07/15/2021, Additional history exists Insurance [employer] [place] Care Teams Windows Deployment Technician Relationship Specialty Start Date End Date Augustine Frost DO PCP - General Internal Medicine 06/02/23 Donte Montenegro MD [address] [facility] [address] [place] [address] Referring Physician Dermatology 02/15/24 Augustine Freitas DO [address] [place] [address] Otolaryngology 02/15/24 Paulina Barboza OD [address] [place] [address] Referring Physician Optometry 12/28/24
--- OUTSIDE RECORDS SUMMARY | 2025-06-26 12:16 | XMS_ITS | Clinical Summary ---
Author Organization [facility] Address [id number] [place] [address] Care Team Providers Care Sensitizer Name Role Phone Augustine Frost James MADDEN Primary Care Provider [phone] Allergies Active Allergy Reactions Criticality Noted Date [...] 02/26/2023 01/01/2023, 07/18/2013 COVID-19 Vaccine (6 - 2024-2 6 season) 2025 06/22/2022, 04/17/2022, 06/22/2021, Additional history exists Influenza Vaccine 05/27/2025 06/29/2022, , 07/09/2020, Additional history exists Medical Devices Not on file Insurance [employer] Advance Directives * Full Code (Latest Code Status on File) Date Activated Date Inactivated Comments 01/22/2023 2:53 AM 01/22/2023 8:59 PM Care Teams Sensitizer Relationship Specialty Start Date End Date Augustine Frost DO [address] [place] [address] PCP - General Internal Medicine 09/26/22
--- OUTSIDE RECORDS SUMMARY | 2025-06-26 12:16 | XMS_ITS | Clinical Summary ---
Author Organization [facility] Address [address] [facility] [facility], [address] [place] [address] Care Team Providers Care Sorter Lumber Straightener Name Role Phone Unavailable Primary Care Provider [...]
== END 2025-06-26 12:15 | disposition home or self-care (01) ==
LOC: SLEEP 12:15
PROVIDERS: PCP Psychiatry & Neurology Neurology; Visit Provider Psychiatry & Neurology Neurology
DX: G47.33 Obstructive sleep apnea (adult) (pediatric) (principal)

== ENCOUNTER 2025-07-14 18:23 | Emergency (ER) | payer MEDICARE, OTHER, SELFPAY ==
--- OUTSIDE RECORDS SUMMARY | 2025-07-04 09:10 | XMS_ITS | Encounter Summary ---
Author Organization [facility] Address [address] [place] [address] Care Team Providers Care Workers Compensation Claims Analyst Name Role Phone SantoshAugustine James MADDEN Primary Care Provider [phone] Donte Montenegro MD Unavailable Unavailable [employer] Augustine Kelsey DO Unavailable [phone] Paulina Barboza OD Unavailable Reason for Visit * Reason Comments Skin Check Encounter Details Date Type Department Care Team (Late st Contact Info) Description 07/04/2025 9:10 AM EDT Office Visit [facility] [address] [facility] [address] [place] [phone] Obdulia Shah APRN-ELECTRIC SIGN WIRER [address] [facility] [address] [place] [address] Seborrheic keratosis; Lentigines; Capillary angioma; Telangiectasia of face; History of malignant melanoma of skin; History of basal cell carcinoma; Melanocytic nevi of trunk; Actinic keratosis; Neoplasm of unspecified behavior of bone, soft tissue, and skin Social History Tobacco Use Types Packs/Day Years [...] on file documented as of this encounter Progress Notes * EDYTA Spence - 07/04/2025 9:10 AM EDT Images from the original note [...] in situ Melanoma Treatment: Excision performed by Macraio Bui MD Location: Right episcopal Established patient Patient denies loss of appetite, [...] lymphadenopathy, no supraclavicular lymphadenopathy, no axillary lymphadenopathy Skin Exam 1. SEBORRHEIC KERATOSIS Generalized Stuck on verrucous, variably pigmented papules and plaques. Patient was counseled regarding these benign growths. Removal is normally not necessary, but they may be removed if they are symptomatic or for cosmetic reasons. 2. LENTIGINES Generalized Scattered whalen macules in sun-exposed areas. The patient was informed that lentigines are benign pigmented lesions that occur on sun-exposed andsun-damaged skin. No treatment is necessary. Recommended regular use of broad spectrum sunscreen SPF 30 or higher 3. CAPILLARY ANGIOMA Trunk Scattered morejon-red papule(s). The patient was informed that angiomas are benign growths on the the skin. No treatment is necessary. 4. 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 Counseled on condition, reassurance given. No treatment necessary 5. HISTORY OF MALIGNANT MELANOMA OF SKIN Right [place] No evidence of recurrence at melanoma scar. The patient was counseled that scars from excisional sites of melanoma should be monitored closely for recurrence. The patient was instructed to contact the office for any new, changing, or symptomatic moles. The patient was also instructed to contact the office for any new lesions that develop within or around the previous melanoma scar. 6. HISTORY OF BASAL CELL CARCINOMA dorsum of nose No evidence of recurrence [...] within or around the previous surgery scar. 7. MELANOCYTIC NEVI OF TRUNK Generalized Scattered evenly pigmented, whalen to brown macules and papules, no suspicious features Counseled regarding these benign growths. Rarely, a nevus can develop into malignant melanoma, so any changing nevi should be promptly re-evaluated. 8. ACTINIC KERATOSIS (6) Head - Anterior (Face) (2), Left Hand - Posterior, Right Ear, Right Hand - Posterior, Scalp Erythematous scaly papules Patient was counseled regarding these sun-induced growths that can develop into squamous cell carcinoma if left untreated. Discussed treatment options, including cryotherapy and topical preparations.It was emphasized that any treated lesions that fail to resolve should be re-evaluated. Patient elected for treatment with Efudex as this has become a chronic issue. Educated on Efudex treatment. Apply to Scalp, Ears, and Backs of hands, face twice a day for two weeks. Discussed that treated areas will become red, crusty, and inflamed. If areas become too uncomfortable, patient may use OTC hydrocortisone cream to help decrease irritation and can discontinue treatment early. Sun exposure should be avoided during treatment. Patient instructed to contact office for any questions or issues duringtreatment. Lesions that fail to resolve once treated area is healed should be re-evaluated in the office. Handout given to patient fluorouracil (Efudex) 5 % cream - Head - Anterior (Face) (2), Left Hand - Posterior, Right Ear, Right Hand - Posterior, Scalp Apply topically in the morning and before bedtime. Apply to directed areas on face, scalp, ears, and back of the hands, bid x 14 days. 9. NEOPLASM OF UNSPECIFIED BEHAVIOR OF BONE, SOFT TISSUE, AND SKIN Right Upper Arm - Posterior Hyperkeratotic papule Lesion biopsy Type of biopsy: tangential Informed [...] details: Photo taken Amount of lidocaine used: 0.5 cc Specimen A - Dermatopathology exam Differential Diagnosis: SCC, ISK Check Margins: No Size of lesion: 0.7 x 0.5 cm Next Visit: 6 months skin exam documented in this encounter Plan of Treatment Upcoming Encounters Date Type Department Care Team (Late st Contact Info) Description 07/19/2025 9:00 AM EDT Office Visit [facility] [address] [place] [address] Lamin Wynne DO [address] [place] [address] 08/19/2025 8:30 AM EST Office Visit [facility] Dermatology [address] [place] [address] Meaghan Torres MD [address] [place] [address] 01/02/2026 8:45 AM EDT Office Visit [facility] Dermatology [address] [place] [address] Meaghan Torres MD [address] [place] [address] Scheduled Orders Name Type Priority Associated Diagnoses Order Schedule Dermatopathology exam Pathology and Cytology Timed Neoplasm of unspecified behavior of bone, soft tissue, and skin Release Upon Ordering for 1 Occurrences starting 07/04/2025 documented as of this encounter Procedures Procedure Name Priority Date/Time Associated Diagnosis Comments SKIN / NAIL BIOPSY Routine 07/04/2025 9: 19 AM EDT Neoplasm of unspecified behavior of bone, soft tissue, and skin documented in this encounter Results * Lesion biopsy (07/04/2025 9:19 AM EDT) Narrative Marissa Adame MA - 07/04/2025 9:19 AM EDT Type of biopsy: tangential Informed consent: discussed [...] details: Photo taken Amount of lidocaine used: 0.5 cc Obdulia Shah HEATER HELPER FORGE-ELECTRIC SIGN WIRER DERM PROCEDURE ORDERAB LES Final Result documented in this encounter Visit Diagnoses Diagnosis Seborrheic keratosis Lentigines Capillary angioma Nevus, non-neoplastic Telangiectasia of face History of malignant melanoma of skin Personal history of malignant melanoma of skin History of basal cell carcinoma Personal history of other malignant neoplasm of skin Melanocytic nevi of trunk Actinic keratosis Neoplasm of unspecified behavior of bone, soft tissue, and skin documented in this encounter Care Teams Workers Compensation Claims Analyst Relationship Specialty Start Date End Date Augustine Frost DO [address] [place] [address] PCP - General Internal Medicine 06/02/23 Donte Montenegro MD [address] [place] [address] Referring Physician Dermatology 02/15/24 Augustine Freitas DO [address] [place] [address] Otolaryngology 02/15/24 Paulina Barboza OD [address] [place] [address] Referring Physician Optometry 12/28/24 documented as of this encounter
--- OUTSIDE RECORDS SUMMARY | 2025-07-12 06:34 | XMS_ITS | Continuity of Care Document ---
Author Organization [facility] Address [address] [place] [address] Phone Care Team Providers Care Broadband Engineer Name Role Phone Augustine Frost DO Primary Care Provider [phone] Augustine Frost DO Attending Provider Rosa Elena Coppola DO Attending Provider Care Teams Patient Care Team Team Status: Active Member Role/Relationship Status Dates Augustine Frost DO Primary Care Provider Active Patient Care Team Team Status: Active Member Role/Relationship Status Dates Augustine Frost DO Primary Care Provider Active Start: May 07, 2025 Augustine Frost DO Attending Provider Active Sta rt: May 07, 2025 Patient Care Team Team Status: Active Member Role/Relationship Status Dates Augustine Frost DO Primary Care Provider Active Start: June 26, 2025 Rosa Elena Coppola DO Attending Provider Active Sta rt: June 26, 2025 Patient Care Team Team Status: Inactive Member Role/Relationship Status Dates Augustine Frost DO Primary Care Provider Active Start: July 12, 2025 End: July 12, 2025 Augustine Frost DO Attending Provider Active Sta rt: July 12, 2025 End: July 12, 2025 Chief Complaint and Reason for Visit Chief Complaint Admit Date Wellness July 12, 2025 9 :37am Reason for Visit Admit Date Anemia July 12, 2025 9 :37am Atrial fibrillation July 12, 2025 9 :37am Chronic kidney disease July 12 9:37am Diabetes mellitus with diabetic polyneur opathy July 12, 2025 9:37am GERD (gastroesophageal reflux disease) O ctober 2024 9:37am Hypertension July 12, 2025 9 :37am 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, 2025 9:37am Medicare annual wellness visit, subseque nt July 12, 2025 9:37am Obesity July 12, 2025 9 :37am CUBA (obstructive sleep apnea) July 122024 9:37am Type 2 diabetes mellitus with hyperglyce olag July 12, 2025 9:37am Allergies, Adverse Reactions, Alerts Allergen Type Severity Reaction Last Updated Verified Status iodine Allergy Unknown Swelling of Lip/Tongue/Throat July 12, 2025 10:06am Yes Active Penicillins Allergy Unknown Hives July 12, 2025 10:06am Yes Active shellfish derived Allergy Unknown Swelling o f Lip/Tongue/Throat July 12, 2025 10:06am Yes Active shrimp Allergy Unknown Swelling of Lip/Tongue/Throat July 12, 2025 10:06am Yes Active Sulfa (Sulfonamide Antibiotics) Allergy Unknown Swelling July 12, 2025 10:06am Yes Active Social History Smoking Status Status Start Date End Date Date of Observa tion Ex-smoker (finding) October 22, 2024 7:25am Observation Status Observation Response Date of Response Legal Sex Male (finding) Sex Assigned At Male December Family History Relationship Condition Age at Onset Recorded Date/T rolando mother Cerebral hemorrhage Unknown Malignant neoplasm of breast Unknown father Diabetes mellitus Unknown Heart disease Unknown Problems Active Problems Problem Diagnosis/Recorded Date Onset Date Status C omments Abrasion of ear canal June 04 11:36am Unknown Active Hypothyroidism due to amiodarone January 11, 2025 12:48pm Unknown Active Prerenal azotemia February 13, 2025 8:56pm Unknown Active Medicare annual wellness visit, subsequent July 09, 2024 9:41pm Unknown Active CUBA (obstructive sleep apnea) January 30, 2024 11:27pm Unknown Active Screening PSA (prostate specific antigen) July 09, 2024 9:36pm Unknown Active PSA: 2.15 - 11/2021, 1.89 - 06/2023, 1.77 - 07/2024 Type 2 diabetes mellitus with hyperglycemia February 27, 2024 9:41am Unknown Active Anemia April 04, 2024 11:51am Unknown Active Atrial fibrillation November 10, 2021 12:39pm Unknown Active Echo: LVEF 60%, normal RV size/function, IVAN - 03/2024,LAAO - 12/2023 Hemopericardium January 30, 2024 11:26pm Unknown Active Hypercholesterolemia January 30, 2024 11:27pm Unknown Acti ve Hypothyroid April 02, 2025 11:13am Unknown Active Chronic kidney disease January 30, 2024 11:31pm Unknown Ac tive Diabetes mellitus with diabetic polyneuropathy October 10, 2024 10:20am Unknown Active Ascending aortic aneurysm June 26, 2025 1:32pm Unknown Active Echo: Ao 4.0cm - 03/2024 GERD (gastroesophageal reflux disease) January 30, 2024 11:28pm Unknown Active Chest pain April 03, 2024 10:14pm Unknown Active Hypertension November 10, 2021 12:38pm Unknown Active Obesity January 31, 2024 8:13pm Unknown Active Inactive/Resolved Problems Problem Diagnosis/Recorded Date Onset Date Status C omments Choledocholithiasis November 10, 2021 1:14pm Unknown Resolved Problem List clean-up per request of Phys. EHR Cmte Acute cholangitis due to calculus of bile duct with obstruction November 09, 2019 3:45pm Unknown Resolved Problem List clean-up per request of Phys. EHR Cmte Medications Medication Status Dose Units Route Directions Qty Days Refills S tart Date Stop Date End Date Reason(s) Instructions Adherence Blood Sugar Diagnostic (Accu-Chek Prachi Plus Test Strp) strip Discont inued 0 .ROUTE .COMPLEX 50 December 16, 2023 4:51pm December 19, 2023 12:27 pm Type 2 diabetes mellitus with hyperglyce olga Type 2 diabetes mellitus with hyperglyce olga USE TO TEST BLOOD SUGAR DAILY Blood Sugar Diagnostic (Accu-Chek Prachi Plus Test Strp) strip Discont inued 0 .ROUTE .COMPLEX 50 December 19, 2023 12:27p m February 02, 2025 8:21a m Type 2 diabetes mellitus with hyperglyce olga Type 2 diabetes mellitus with hyperglyce olga USE TO TEST BLOOD SUGAR DAILY Trazodone 50 mg tablet Discont inued 0 .ROUTE .COMPLEX 90 January 23, 2024 10:08p m Octob er 2023 6:59a m TAKE ONE TABLET BY MOUTH EVERY NIGHT AT BEDTIME Amlodipine 5 mg tablet Discont inued 5 MG PO Daily 30 30 5 February 28, 2024 12:00a m Octob er 2023 10:19 pm Benazepril 20 mg tablet Discont inued 0 .ROUTE .COMPLEX 90 3 Septem jn 2023 5:56pm Janua ry 2024 3:59p m TAKE 1 TABLET BY MOUTH DAILY Amlodipine 5 mg tablet Discont inued 5 MG PO Daily 30 30 11 Octobe r 2023 10:18p m Octob er 2023 9:34a m Atorvastati n 10 mg tablet Discont inued 0 .ROUTE .COMPLEX 90 3 Octobe r 2023 12:34p m Janua ry 2024 3:59p m TAKE ONE TABLET BY MOUTH EVERY EVENING Trazodone 50 mg tablet Discont inued 0 .ROUTE .COMPLEX 90 1 Octobe r 2023 6:59am Janua ry 2024 3:59p m TAKE ONE TABLET BY MOUTH EVERY NIGHT AT BEDTIME Empaglifloz in (Jardiance) 10 mg tablet Discont inued 10 MG PO Every morning 30 30 0 January 10, 2025 12:00a m February 13, 2025 11:41 am Glimepiride 1 mg tablet Discont inued 0.5 MG PO Daily 15 5 January 11, 2025 12:00a m February 13, 2025 11:41 am Take 30 minutes prior to first meal of day Levothyroxi ne 25 mcg tablet Discont inued 25 MCG PO Daily 30 30 2 January 11, 2025 12:00a m January 11, 2025 12:57 pm Amlodipine 5 mg tablet Discont inued 10 MG PO Daily at bedtime January 11, 2025 12:57p m Octob er 2024 4:09p m Trazodone 50 mg tablet Discont inued 0 .ROUTE .COMPLEX 90 1 January 15, 2025 1:03pm Octob er 2024 10:10 am TAKE ONE TABLET BY MOUTH EVERY NIGHT AT BEDTIME Blood Sugar Diagnostic (Accu-Chek Prachi Plus Test Strp) strip Discont inued 0 .ROUTE .COMPLEX 50 11 February 02, 2025 8:21am February 04, 2025 8:40a m Type 2 diabetes mellitus with hyperglyce olga Type 2 diabetes mellitus with hyperglyce olga USE TO TEST BLOOD SUGAR DAILY Blood Sugar Diagnostic (Accu-Chek Prachi Plus Test Strp) strip Active 0 .ROUTE .COMPLEX 50 February 04, 2025 8:39am Type 2 diabetes mellitus with hyperglyce olga Type 2 diabetes mellitus with hyperglyce olga USE TO TEST BLOOD SUGAR DAILY Levothyroxi ne 75 mcg tablet Discont inued 75 MCG PO Daily May 13, 2025 1:51pm Augus t 2024 2:09p m Levothyroxi ne 75 mcg tablet Discont inued 75 MCG PO Daily May 13, 2025 2:09pm Octob er 2024 10:33 am Pantoprazol e 40 mg tablet,yovany yed release (DR/EC) Active 0 .ROUTE .COMPLEX 90 3 jn 2024 5:05pm TAKE 1 TABLET BY MOUTH DAILY ON AN EMPTY STOMACH 30 MINUTES BEFORE BREAKFAST Complies with drug therapy Benazepril 20 mg tablet Active 0 .ROUTE .COMPLEX 90 3 Mayem jn 2024 7:35am TAKE 1 TABLET BY MOUTH DAILY Complies with drug therapy Trazodone 50 mg tablet Active 0 .ROUTE .COMPLEX 90 1 Octobe r 2024 10:10a m TAKE ONE TABLET BY MOUTH EVERY NIGHT AT BEDTIME Complies with drug therapy Atorvastati n 10 mg tablet Active 10 MG PO Every evening 90 90 3 Octobe r 2024 8:38pm Complies with drug therapy Amlodipine 5 mg tablet Active 5 MG PO Daily 90 90 3 Octo be r 2024 4:09pm Complies with drug therapy Propafenone 150 mg Tablet Discont inued 150 MG PO Q8H 2021 1:00am January 31, 2024 3:32p m Carvedilol 6.25 mg tablet Discont inued 6.25 MG PO Twice daily 2021 1:00am January 31, 2024 8:48a m Trazodone 50 mg tablet Discont inued 50 MG PO Daily 2021 1:00am January 23, 2024 10:08 pm Atorvastati n 10 mg tablet Discont inued 10 MG PO Daily at bedtime 2021 1:00am Octob er 2023 12:34 pm Warfarin 7.5 mg tablet Discont inued 7.5 MG PO As Directed 2021 1:00am January 31, 2024 3:31p m 7.5mg on Sat. 5mg I-F-R-W-Th- Clonazepam 1 mg tablet Active 2 MG PO Daily at bedtime 2021 1:00am Complies with drug therapy Acetaminoph en 500 mg Tablet Active 1000 MG PO Every 8 hours 2021 1:00am Pain Complies with drug therapy Amlodipine 10 mg tablet Discont inued 10 MG PO Daily 2021 1:00am January 31, 2024 3:31p m Omeprazole 20 mg capsule,del ayed release(DR/ EC) Discont inued 20 MG PO Daily 2021 1:00am Octob er 2023 9:38p m Aspirin (Aspirin Childrens) 81 mg tablet,chew able Active 81 MG PO Every morning 2021 1:00am On Hold: Resume on 10/24/24. Complies with drug therapy Multivitami n-Minerals- Lutein (A Thru Z High Potency) tablet Active 1 TAB PO Twice daily 2021 1:00am Complies with drug therapy Clindamycin Hcl 300 mg capsule Active 300 MG PO Twice daily 2024 1:00am Complies with drug therapy Trazodone 50 mg tablet Discont inued 50 MG PO Daily at bedtime 2024 1:00am January 15, 2025 1:03p m Atorvastati n 10 mg tablet Discont inued 10 MG PO Daily at bedtime 2024 1:00am Octob er 2024 8:38p m Amlodipine 5 mg tablet Discont inued 5 MG PO Daily at bedtime 2024 1:00am January 11, 2025 12:57 pm Pantoprazol e 40 mg tablet,yovany yed release (DR/EC) Discont inued 40 MG PO Every morning 2024 1:00am Sept2024 5:05p m Take on an empty stomach, 30 minutes prior to bkfst Benazepril 20 mg tablet Discont inued 20 MG PO Every morning 2024 1:00am Sept2024 7:35a m Benazepril 20 mg tablet Discont inued 20 MG PO Daily January 31, 2024 12:00a m Sept 2023 5:56p m Carvedilol 12.5 mg tablet Discont inued 12.5 MG PO Twice daily January 31, 2024 12:00a m April 04, 2024 11:40 am Amiodarone 200 mg tablet Discont inued 200 MG PO Every morning January 31, 2024 12:00a m February 13, 2025 12:29 pm Clopidogrel (Plavix) 75 mg tablet Discont inued 75 MG PO Daily January 31, 2024 12:00a m [facility] 2023 10:53 am On Hold: Resume on 02/26/24. Doxycycline Hyclate 100 mg capsule Discont inued 100 MG PO Twice daily 14 7 0 January 31, 2024 12:00a m February 16, 2024 4:13p m Amlodipine 5 mg tablet Discont inued 5 MG PO Daily 90 90 3 r 2023 9:33am 2024 3:59p m Pantoprazol e 40 mg tablet,yovany yed release (DR/EC) Discont inued 40 MG PO Daily 90 90 3 Junobe r 2023 12:00a m Octob er 2023 5:36p m Take on an empty stomach, 30 minutes prior to bkfst Pantoprazol e 40 mg tablet,yovany yed release (DR/EC) Discont inued 40 MG PO Daily 90 90 3 Junobe r 2023 5:36pm 2024 3:59p m Take on an empty stomach, 30 minutes prior to bkfst Carvedilol 6.25 mg tablet Discont inued 6.25 MG PO Twice daily 180 90 3 April 04, 2024 11:39a m Novem jn 2023 10:57 am Benzonatate 200 mg capsule Discont inued 200 MG PO Three times daily 30 10 May 16, 2024 12:00a m [facility] 2023 11:19 am Molnupiravi r 200 mg capsule Discont inued 800 MG PO Every 12 hours 40 5 0 May 16, 2024 12:00a m Augus t 2023 2:05p m Molnupiravi r 200 mg capsule Discont inued 800 MG PO Every 12 hours 40 5 0 May 16, 2024 2:04pm [facility] 2023 11:19 am Mupirocin 2 % ointment Discont inued 1 APPLIC TOPICA L Twice daily 22 0 Mayem jn 2023 12:00a m Janua ry 2024 3:59p m Abrasion of ear canal Abrasion of unspecifie d ear, initial encounter Carvedilol 12.5 mg tablet Active 12.5 MG PO Twice daily 180 [facility] 10:56a m Complies with drug therapy Glimepiride 1 mg tablet Active 0.5 MG PO Every morning 45 90 3 February 13, 2025 12:00a m administer with breakfast Complies with drug therapy Levothyroxi ne 75 mcg tablet Active 75 MCG PO Daily 90 90 3 Octobe r 2024 10:33a m Complies with drug therapy Blood Sugar Diagnostic (Accu-Chek Prachi Plus Test Strp) strip Discont inued 0 .Route December 16, 2023 12:00a m December 16, 2023 4:52p m Type 2 diabetes mellitus with hyperglyce olga Type 2 diabetes mellitus with hyperglyce olga As directed Levothyroxi ne 25 mcg tablet Discont inued 25 MCG PO Daily 30 30 5 April 02, 2025 12:00a m Augus t 2024 1:52p m Immunizations Immunization Event Date Not Given Reason Dose Number [facility] Specialist Lot Number Reason(s) Given Vaccine Information Statement (VIS) Detail Administration Location COVID-19 mRNA, Comirnaty (Lettuce Eat) ua ry 2020 COVID-19 mRNA, Comirnaty (Lettuce Eat) ua ry 2020 COVID-19 mRNA, Comirnaty (Lettuce Eat) Mayem jn 2020 COVID-19 Comirnaty (Pfizer) Tri-Sucrose 12+ April 17, 2022 COVID-19 mRNA Bivalent Booster (Pfizer) Septem jn 2021 COVID-19 (PFIZER) 12Y and older Septem jn 2022 COVID-19 (PFIZER) 12Y and older December 27, 2023 COVID-19 (PFIZER) 12Y and older Novemb er 2023 Fluzone TIV High-Dose 65YR+ Octobe r 2023 [id number] [facility] Fluzone TIV High-Dose 65YR+ Octobe r 2015 [id number] Fluzone TIV High-Dose 65YR+ Octobe r 2016 [id number] Fluzone TIV High-Dose 65YR+ Octobe r 2019 Fluzone TIV High-Dose 65YR+ Octobe r 2024 [id number] [facility] Influenza, trivalent Octobe r 2017 [id number] Influenza, trivalent Octobe r 2020 [id number] Influenza vaccine, quadrivalent, adjuvanted Octobe r 2021 [id number] Influenza, injectable, MDCK, pf Septem 2014 influenza, unspecified formulation Septem jn 2014 influenza, unspecified formulation Octobe r 2015 influenza, unspecified formulation Octobe r 2016 influenza, unspecified formulation Octobe r 2017 influenza, unspecified formulation Octobe r 2018 influenza, unspecified formulation Octobe r 2019 influenza, unspecified formulation Octobe r 2020 influenza, unspecified formulation Octobe r 2021 influenza, unspecified formulation Octobe r 2022 Pneumococcal Conjugate Vaccine, 13 valent Octobe r 2014 Pneumococcal Polysacc. Vaccine, 23 valent [facility] er 2012 Pneumococcal Polysacc. Vaccine, 23 valent December 25, 2013 Zoster Vaccine Recombinant, Adjuvanted January 01, 2023 Zoster Vaccine Recombinant, Adjuvanted March 03, 2023 Tetanus, Diphtheria adult, 5 Lf pres free abs Octobe r 2012 Tetanus, Diphtheria adult, 5 Lf pres free abs Septem jn 2013 Shingles (Zoster) Octobe r 2012 Relevant Diagnostic Tests and/or Laboratory Data Laboratory Results Test Collection Date/Time Result Date/Time Result Interpretation Reference Range Result Comment Performing Site Estimated Average Glucose May 07, 2025 7:46am May 07, 2025 7:46am 131 mg/dL Hemoglobi n A1c May 07, 2025 7:46am May 07, 2025 7:46am 6.2 % 4.5-6.2 ADA RECOMMENDED LIMIT 4.0 - 6.0ADA THERAPEUTIC TARGET < 7.0ACTION SUGGESTED> 7.0 Vital Signs Vital Reading Result Reference Range Collection Date/Time Height 68 [in_i] July 12, 2 025 10:16am Weight 107.10 kg July 12, 025 10:16am Heart Rate 58 /min 60-100 July 12, 2 025 10:16am Respiratory rate 12 /min 12-24 June 10:16am BP Systolic 147 mm[Hg] 100-140 July 12, 2 025 10:16am BP Diastolic 77 mm[Hg] 60-100 July 12, 2 025 10:16am BMI (Body Mass Index) 35.9 kg/m2 Octobe r 2024 10:16am Advance Directives Advance Directive Response Recorded Date/ Time Advance Directives No April 02 12:19pm Insurance Providers Guarantor Tito Goncalves Address [address] [facility] [address] Contact Info. Home Phone: Payer Group Member ID Coverage Type Subscriber Relationship to Subscriber Effective Date Expiration Date MMO Id: [id number] 21 null Tito Goncalves Id: [id number] [address] [facility] [address] Home Phone: Email: [email or web address] [id number] 4 null Tito Goncalvse Id: [id number] [address] [facility] [address] Home Phone: Email: [email or web address] Encounters Encounter Location(s) Arrival/Admit Date Discharge/Departure Date Discharge/Departure Disposition Provider(s) Non-patien t / [facility]-visit [facility] May 07, 2025 7:46am Augustine Frost DO Non-patien t / Non-visit -[facility] June 26, 2025 11:59pm Rosa Elena Coppola DO Departed Physician/ Provider Office Visit -[facility] July 12, 2025 9:37am July 12, 2025 10:33am Discharged to home care or self care (routine discharge) Augustine Frost DO Recent Diagnosis Onset Date Admit Date Anemia Unknown July 12 9:37am Atrial fibrillation Unknown June 9:37am Chronic kidney disease Unknown June 262024 9:37am Diabetes mellitus with diabetic polyneuropathy U nknown July 12, 2025 9:37am GERD (gastroesophageal reflux disease) Unknown July 12, 2025 9:37am Hypertension Unknown July 12 9:37am Hypothyroidism due to amiodarone Unknown July 12, 2025 9:37am Medicare annual wellness visit, subsequent Unkno wn July 12, 2025 9:37am Obesity Unknown July 12 9:37am CUBA (obstructive sleep apnea) Unknown Oc tober 2024 9:37am Type 2 diabetes mellitus with hyperglycemia Unkn own July 12, 2025 9:37am Assessments Diagnosis Onset Date Resolution Status Admit Date Anemia acute July 12, 2025 9:37am Atrial fibrillation acute Octob er 2024 9:37am Chronic kidney disease acute Oc tober 2024 9:37am Diabetes mellitus with diabe tic polyneuropathy acute July 12 9:37am GERD (gastroesophageal reflu x disease) acute July 12 9:37am Hypertension acute June 9:37am Hypothyroidism due to amiodarone acu te July 12, 2025 9:37am Medicare annual wellness vis it, subsequent acute July 12 9:37am Obesity acute July 12, 2025 9:37am CUBA (obstructive sleep apnea) acute July 12, 2025 9:37am Type 2 diabetes mellitus wit h hyperglycemia acute July 12 9:37am Plan of Treatment Author [facility] Authored July 11, 2025 7 :08am I instructed this patient on the benefits of adequate control of hypertension and diabetes, if appropriate. I have also instructed them to avoid use of NSAIDs due to the adverse effects on renal function. I instructed them on adequate fluid balance and to consume at least 48 oz of fluids daily. I also instructed them to monitor for an unexplained increase in weight and lower extremity edema. They have been instructed to notify the office for any changes or concerns. Secondary to diabetic nephropathy and hypertensive glomerulosclerosis I have instructed this patient to consume a healthy, low-fat, low-salt diet. I have also encouraged them to continue exercise with weight loss to achieve/maintain a BMI < 30. I have instructed this patient on the correct procedure for obtaining home BP measurements: - rest for 5 minutes w/o talking. - positioned w/ feet on floor and arms supported. - average best 2/3 readings w/ goal < 135/85. - update office w/ home readings in 2 weeks. Continue Amlodipine, Benazepril and Coreg without interruption I have instructed this patient to follow a comprehensive diabetic treatment plan. I have also instructed them to check their feet daily for calluses and nonhealing ulcers. I have instructed them to have a yearly dilated eye examination. I have reviewed their treatment goals: SBP less than 130, LDL less than 100, FBS less than 140, A1C less than 7%. I have instructed them to maintain a home BS log and bring the results to each of their office visits for review. I have explained the importance of routine monitoring of their A1C, Microalbumin and Lipids. I have explained the benefits of well controlled diabetes in preventing micro and macrovascular complications. Never filled SGLT2 due to cost Restart Glimepiride (held due to suspected sulfa allergy) - denies hives or angioedema A1C order printed I have instructed the patient to inspect their feet daily for cuts and calluses. I have recommended shoes and inserts to prevent callus formation. I have reviewed fall precautions. Discussed use of Gabapentin but declined for now Amiodarone d/c'd in January TSH remains > 10 Recommend starting low dose Levothyroxine and continue to monitor TSH This patient is rhythm controlled. I instructed them to monitor their BP, HR and daily weights. I also instructed them to monitor for bleeding complications, including epistaxis, hematuria, melena and hematochezia. Echo: LVEF 60%, normal RV size/function, IVAN - 03/2024, LAAO - 12/2023 (complicated by cardiac tamponade) Amiodarone was stopped in January due to elevate TSH I have instructed this patient to avoid lying flat after eating. I have also recommended to avoid eating 2 hours prior to bedtime. They were also informed that smaller, frequent meals may be better tolerated. I have discussed additional treatment options for persistent symptoms, which includes: weight loss, H2 blockers and PPI. I have also instructed them to notify the office with any pain or difficulty swallowing. Change Omeprazole 20 to Pantoprazole 40 Symptoms are better controlled Likely esophageal spasms but has had distal esophageal strictures in past. Hgb count is increasing w/ treatment No s/s GIB - Fe infusion given (03/2024, 06/2024) - last colonoscopy in 2020 - last EGD (ERCP) 2022 Continue to monitor H/H This patient is aware of the benefits associated with CUBA: With continued use, the patient reduces the risk for AL, CVA, HTN, cardiac dysrhythmias and sudden cardiac deaths. The patient is also aware of the association between CUBA and morning headaches, daytime somnolence, fatigue and obesity, which also has been improved with continued use. The patient is compliant with treatment, wearing the equipment every night for greater than 4 hours. The patient is instructed to continue use of the CPAP for CUBA treatment. Compliant I have instructed this patient on a low-fat, high-fiber diet. I have also instructed them to reduce calories, portions sizes, sweet drinks and snacks. I have also recommended they exercise for 30 minutes, 3-5 times weekly. They are aware of the comorbid conditions associated with excessive weight: Diabetes, HTN, Hyperlipidemia, CAD and arthritis. Weight has decreased since his last OV, instructed to work on diet and exercise I have instructed this patient on the recommended lifestyle changes, which includes a low fat, high fiber diet along with a regular exercise routine. I have also reviewed the recommended age-appropriate preventive testing for this patient. I have also reviewed the recommended vaccines for their age and risk factors. Future Tests Future scheduled test information is unavailable Pending Tests Pending diagnostic test information is unavailable Future Visits Future appointment information is unavailable Future Procedures Future procedure information is unavailable Future Medications Future medication information is unavailable Patient Instructions Patient instructions are unavailable
--- NOTE | 2025-07-14 18:26 | ECG_ITS ---
[facility] Test Date: 2025-07-14 Pat Name: EL TRUONG Department: Room: - Gender: Male Key Carrier: : [id number] Requested By: [id number] Order Number: [id number] Reading MD: CLAYTON AGUILA Measurements Intervals [place] Rate: 70 P: 41 UT: 200 QRS: 15 QRSD: 86 T: 90 QT: 386 QTc: 406 Interpretive Statements 1100 Sinus rhythm 1570 with occasional ventricular premature complexes 9140 abnormal rhythm ECG Compared to ECG 02/06/2025 10:49:33 Ventricular premature complex(es) now present Electronically Signed On 07-15-2025 13:15:10 EDT by CLAYTON AGUILA
[2025-07-14 18:30] VITALS: BP 189/85; PULSE 72; TEMP 36.6; O2SAT 97; BMI 31.2
--- OUTSIDE RECORDS SUMMARY | 2025-07-14 18:31 | XMS_ITS | Encounter Summary ---
Author Organization [facility] Address [address] [place] [address] Care Team Providers Care Steeping Press Tender Name Role Phone Santosh Augustine Ramirez DO Primary Care Provider [phone] Donte Montenegro MD Unavailable Unavailable Augustine Freitas DO Unavailable [phone] Paulina Barboza OD Unavailable Encounter Details Date Type Department Care Team (Late st Contact Info) Description 02/16/2024 External Result Encounter [facility] External Department Unsolicited Augustine Freitas, DO [address] [place] [address] Social History Tobacco Use Types Packs/Day Years [...] Description 07/19/2025 9:00 AM EDT Office Visit [facility] [address] [place] [phone] Lamin Wynne DO [address] [place] [address] 08/19/2025 8:30 AM EST Office Visit [facility] [address] [place] [address] Meaghan Torres MD [address] [place] [address] 01/02/2026 8:45 AM EDT Office Visit [facility] [address] [place] [address] Meaghan Torres MD [address] [place] [address] documented as of this encounter Procedures Procedure Name Priority Date/Time Associated Diagnosis Comments ECG 12-LEAD 02/16/2024 4:00 PM EDT documented in this encounter Results * ECG 12 lead (02/16/2024 4:00 PM EDT) 02/16/2024 4:00 PM EDT [facility] 02/17/2024 12:43 PM EDT [facility] Main [address] [address] Electrocardiograph Report Signed Patient: Tito Goncalves MR#: [id number] : 1945 Acct:[id number] Age/Sex: 79 / M ADM Date: 02/16/24 Loc: Room: Type: [facility] Attending Dr: Augustine Freitas DO Ordering Provider: [...] T wave abnormality Confirmed by Viviane Herman ([id number]) on 02/17/2024 12:43:51 PM Referred By: JAMAR Electronically Signed By:Viviane Herman Transcribed By: MUS Signed By Viviane Herman MD [id number] Procedure Note Viviane Herman MD - 02/17/2024 [facility] Main [address] [place] [address] Electrocardiograph Report Signed Patient: Tito Goncalves RMR#: [id number] : 6Acct:[id number] Age/Sex: 79 / MADM Date: 02/16/24 Loc: Room:Type: [facility] Attending Dr: Augustine Freitas DO Ordering Provider: [...] T wave abnormality Confirmed by Viviane Herman ([id number]) on 02/17/2024 12:43:51 PM Referred By: JAMAR Electronically Signed By:Viviane Herman Transcribed By: MUS Signed By Viviane Herman MD 4 [phone] us Augustine Freitas DO ECG ORDERABLES Final Resul t [address] [place] [address], documented in this encounter Visit Diagnoses Not on filedocumented in this encounter Care Teams Steeping Press Tender Relationship Specialty Start Date End Date Augustine Frost DO [address] [place] [address] PCP - General Internal Medicine 06/02/23 Donte Montenegro MD [address] [place] [address] Referring Physician Dermatology 02/15/24 Augustine Freitas DO [address] [place] [address] Otolaryngology 02/15/24 Paulina Barboza OD [address] [place] [address] Referring Physician Optometry 12/28/24 documented as of this encounter
--- OUTSIDE RECORDS SUMMARY | 2025-07-14 18:32 | XMS_ITS | Encounter Summary ---
Author Organization [facility] Address [address] [place] [address] Care Team Providers Care Full Fashioned Garment Knitter Name Role Phone Augustine Frost Primary Care Provider [phone] Donte Montenegro MD Unavailable Unavailable PatienceAugustine quesada Unavailable [phone] Paulina Barboza OD Unavailable Encounter Details Date Type Department Care Team (Latest Contact Info) Description 07/04/2025 Travel Social History Tobacco Use Types Packs/Day Years [...] 07/19/2025 9:00 AM EDT Office Visit [facility] [address] [place] [address] Lamin Wynne DO [address] [place] [address] 08/19/2025 8:30 AM EST Office Visit [facility] [address] [place] [address] Meaghan Torres MD [address] [place] [address] 01/02/2026 8:45 AM EDT Office Visit [facility] [address] [place] [address] Meaghan Torres MD [address] [place] [address] documented as of this encounter Visit Diagnoses Not on filedocumented in this encounter Care Teams Full Fashioned Garment Knitter Relationship Specialty Start Date End Date Augustine Frost DO [address] [place] [address] PCP - General Internal Medicine 06/02/23 Donte Montenegro MD [address] [place] [address] Referring Physician Dermatology 02/15/24 Augustine Freitas DO [address] [place] [address] Otolaryngology 02/15/24 Paulina Barboza OD [address] [place] [address] Referring Physician Optometry 12/28/24 documented as of this encounter
--- OUTSIDE RECORDS SUMMARY | 2025-07-14 18:32 | XMS_ITS | Clinical Summary ---
Author Organization [facility] Address [address] [place] [address] Care Team Providers Care Research Geologist Name Role Phone Augustine Frost DO Primary Care Provider [phone] Allergies Active Allergy Reactions Criticality Noted Date [...] times daily. 60 capsule 2 Active therapeutic multivitamin-mobile paramedical examiner als tablet Take 1 tablet by [...] this topic Medical Devices Implanted Type Area Maintenance Scheduler Device Identifier Shelf Expiration Date Model / Serial / Lot Palacos R 1 X 40 - [id number] Implanted:Qty: 2 on 03/15/2022 by Pastor Brito MD at [facility] REV LOC Right: Knee 05/26/2026 / / [id number] Attune Patella Medialized Dome Implanted:Qty: 1 on 03/15/2022 by Pastor Brito MD at [facility] REV LOC Right: Knee DEPUY 11/23/2026 1518-20-041 / [id number] / [id number] Attune Knee System Tibial Base Fixed Bearing Implanted:Qty: 1 on 03/15/2022 by Pastor Brito MD at [facility] REV LOC Right: Knee DEPUY 06/25/2031 1506-70-007 / [id number] / [id number] Attune Femoral Posterior Stabilized Implanted:Qty: 1 on 03/15/2022 by Pastor Brito MD at [facility] REV LOC Right: Knee 12/24/2030 / 1504-10-208 / [id number] Attune Tibial Insert Fixed Bearing Posterior Stabilized Implanted:Qty: 1 on 03/15/2022 by Pastor Brito MD at [facility] REV LOC Right: Knee DEPUY [...] Hospital Glucose 230(H) 70 - 100 MG/DL [address] Comment: NORMAL <100 mg/dL PREDIABETES 101-126 mg/dL DIABETES 126 mg/dL or higher BUN 22(H) 7 - 20 MG/DL [address] CREATININE SERUM 1.20 0.7 - 1.2 MG/DL [address] SODIUM 136(L) 137 - 145 MMOL/L [address] Potassium 4.5 3.5 - 5.1 MMOL/L [address] CHLORIDE 106 98 - 107 MMOL/L [address] Comment:Please note: Triglyc eride levels of 600mg/dL or higher may positively bias chloride results by approximately 2.1 mmol CARBON DIOXIDE (CO2) 23 22 - 30 MMOL/L [address] Albumin 3.3(L) 3.5 - 5.0 G/dl [address] CALCIUM 7.9(L) 8.4 - 10.2 MG/DL [address] PHOSPHORUS 2.9 2.5 - 4.5 MG/DL [address] ESTIMATED GFR, NON AMER 63 ml/min/1. 73sq.m [address] ESTIMATED GFR, 76 ml/min/1. 73sq.m [address] GFR COMMENT Average GFR for 70+ years old = 75. [address] Comment: Chronic Kidney disease, GFR = <60. Kidney failure, GFR = <15. The GFR estimate is not adjusted for extreme body surface area or acute process, nor has it been validated for women or ethnic groups other than and . Testing performed at [place], [place] [address] 03/16/2022 5:14 AM EDT 03/16/2022 5:38 AM EDT us Domenico Ferguson MD CHEMISTRY ORDERABLES Fi nal Result [address] [address] * (ABNORMAL) HEMOGLOBIN A1C (02/18/2022 12:30 PM EDT) Pathologist [facility] HEMOGLOBIN A1C 7.3(H) <6 % [address] Comment: NORMAL <5.7% PREDIABETES 5.7-6.4% DIABETES 6.5% OR HIGHER Estimated Average Glucose 163 mg/dL [address] Blood 02/18/2022 12:3 0 PM EDT 02/18/2022 12:49 PM EDT us Kirsty Lindsey PA-C HEMATOLOGY ORDERABLES Final Resu lt [address] [address] from Last 3 Months or Most Recently Relevant to Health Maintenance Insurance Medicare A and B Medicare Supplement Advance Directives For more information, please contact: [phone] (7:30 AM - 6PM [facility], Tuesday-Tuesday) * Full Code (Latest Code Status on File) Date Activated Date Inactivated Comments 03/15/2022 4:44 PM Care Teams Research Geologist Relationship Specialty Start Date End Date Augustine Frost DO PCP - General Internal Medicine 01/24/17
--- OUTSIDE RECORDS SUMMARY | 2025-07-14 18:32 | XMS_ITS | Encounter Summary ---
Author Organization [facility] Address [address] [place] [address] Care Team Providers Care Software Developer Manager Name Role Phone SantoshAugustine James MADDEN Primary Care Provider [phone] Donte Montenegro MD Unavailable Unavailable [employer] Augustine Kelsey DO Unavailable [phone] Paulina Barboza OD Unavailable Encounter Details Date Type Department Care Team (Latest Contact Info) Description 07/11/2025 Results Follow-Up [facility] [address] [place] [address] Obdulia Shah, OFFICE MESSENGER HELPER-OPEN HEARTH FURNACE LABORER [address] [place] [address] Dermatopathology exam Social History Tobacco Use Types Packs/Day Years [...] Description 07/19/2025 9:00 AM EDT [facility] [address] [place] [address] Lamin Wynne DO [address] [place] [address] 08/19/2025 8:30 AM EST Office Visit [facility] [address] [place] [address] Meaghan Torres MD [address] [place] [address] 01/02/2026 8:45 AM EDT Office Visit [facility] [address] [place] [address] Meaghan Torres MD [address] [place] [address] documented as of this encounter Visit Diagnoses Not on filedocumented in this encounter Care Teams Software Developer Manager Relationship Specialty Start Date End Date Augustine Frost DO [address] [place] [address] PCP - General Internal Medicine 06/02/23 Donte Montenegro MD [address] [place] [address] Referring Physician Dermatology 02/15/24 Augustine Freitas DO [address] [place] [address] Otolaryngology 02/15/24 Paulina Barboza OD [address] [place] [address] Referring Physician Optometry 12/28/24 documented as of this encounter
--- OUTSIDE RECORDS SUMMARY | 2025-07-14 18:32 | XMS_ITS | Clinical Summary ---
Author Organization [facility] Address [id number] [address] [place] [address] Care Team Providers Care Submarine Worker Name Role Phone Augustine Frost James MADDEN Primary Care Provider [phone] Allergies Active Allergy Reactions Criticality Noted Date [...] 2:53 AM 01/22/2023 8:59 PM Care Teams Submarine Worker Relationship Specialty Start Date End Date Augustine Frost DO [address] [place] [address] PCP - General Internal Medicine 09/26/22
--- OUTSIDE RECORDS SUMMARY | 2025-07-14 18:32 | XMS_ITS | CCD ---
Author Organization [facility] Inform ion Partnership [facility] Care Team Providers Care Bulb Grader Name Role Phone GENE FAJARDO Admitting Unavailable GENE FAJARDO Attending Unavailable AUGUSTINE METZ Primary Care Unavailable RYAN CARDENAS Referring Unavailable Augustine Metz Primary Care Provider Augustine Metz DO Primary Care Provider [phone] Augustine Metz DO Primary Care Provider Carmen Kahn Unavailable AUGUSTINE METZ Primary Care Physician Augustine Metz DO Primary Care Provider Damari Rjoas Unavailable Unavailable Alyssa, Mago Osman Delmis Referring [...] Care Unavailable BALL, DR PEREZ Attending Unavailable FAWWADSHAIKH Tiburcio Attending Unavailable FAWSHAIKH Tiburcio ROWE Admitting Unavailable [...] Care Unavailable Ball, Augustine Primary Care Unavailable Marietta, Colin S Admitting Unavailab james Song, Colin S Attending Unavailab james Metz MD, Augustine Ramirez Primary Care Provider DO Augustine Metz Primary Care Provider Murcek, DO Augustine Attending Provider Augustine Metz MD Primary Care Provider Christin Bolton MD Unavailable MurAugustine vincent DO W Unavailable Augustine Metz MD Primary Care Provider Augustine Metz DO Primary Care Provider Murmelisa DO, Augustine Attending Provider Murmelisa, Augustine Admitting Unavailable Ball, Augustine Primary Care Unavailable Murcek, Augustine Attending Unavailable Murcek, Augustine Admitting Unavailable Ball, Augustine Primary Care Unavailable Murcek, Augustine Attending Unavailable Murcek, Augustine Admitting Unavailable Ball, Augustine Primary Care Unavailable Murcek, Augustine Attending Unavailable Ball, Augustine Primary Care Unavailable Murcek, Augustine Admitting Unavailable Murcek, Augustine Attending Unavailable Tamra OD, Paulina Unavailable Augustine Metz DO Primary Care Provider [phone] Murcek DO, Augustine Attending Provider Isaías MADDEN, Augustine Primary Care Provider [phone] Augusitne Metz DO Attending Provider Maggy Murphy Attending Provider [phone] Krzysztof Carmona DO Attending Provider Esther Larson Attending Provider Lisa Lacey CMA Attending Provider UnavailMADISON Bolton Attending Unavailable OLIVER LIANG Attending Unavailable MAGGY MURPHY Attending Unavailable Augustine Metz DO Primary Care Provider CHRISTIN BOLTON Attending Unavailable ZENA, AUGUSTINE Kelsey Attending Unavailable MURMELISA, AUGUSTINE Kelsey Attending Unavailable MURMELISA, AUGUSTINE Kelsey Attending Unavailable CHRISTIN BOLTON Referring Unavailable JOSE R DODD Attending Unavailable ZENA, AUGUSTINE Kelsey Attending Unavailable JOSE R DODD Attending Unavailable KINGSTON COPPOLA Attending Unavailable OSMAN SHAH Attending Unavailable ALYSSA, OSMAN Jose Attending Unavailable ALYSSA, OSMAN Jose Attending Unavailable Augustine Metz DO Primary Care Provider Christin Bolton MD Unavailable Unavailable Augustine Metz DO Primary Care Provider Augustine Metz DO Attending Provider [phone] Kingston Coppola DO Attending Provider Allergies Allergy Classification Reported Allergen(s) Allergy Type Date of Onset Reaction(s) Facility Iodine (and Iodine containting drugs) (1 source) Iodine Drug Allergy 04-04-20 24 Unknown Reaction [facility] Penicillins (antibiotic) (1 source) Penicillins Drug Allergy 04-04-20 24 [facility] Shellfish (2 sources) Shellfish Food Allergy 04-04-20 24 Unknown Reaction [facility] Sulfonamides (antibiotic) (1 source) Sulfonamides (Antibiotic) Drug Allergy 04-04-20 24 Swelling [facility] (20 sources) Iodine; Translations: [iodine] Drug Allergy 08-31-20 09 Unknown, Unknown Reaction, Swelling of Lip/Tongue/Thr oat [facility] Repository (16 sources) Penicillins; Translations: [PENICILLINS] Drug allergy (disorder) 08-01-19 63 Unknown Reaction, Hives [facility] Repository (16 sources) Sulfonamides (Antibiotic); Translations: [SULFA (SULFONAMIDE ANTIBIOTICS)] Drug allergy (disorder) 08-31-19 93 Swelling [facility] Repository (2 sources) Shellfish Containing Products; Translations: [Shellfish Containing Products] Food allergy (disorder) 08-31-20 09 [facility] Rep[facility] (20 sources) Iodine; Translations: [iodine] Drug Allergy 08-31-20 09 Swelling, Unknown (qualifier value), Anaphylaxis [facility] (20 sources) Penicillin G Drug Allergy 10-20-19 13 Hives [facility] (20 sources) Shellfish Propensity to adverse reactions to drug 08-31-20 09 Swelling, Other [facility] (12 sources) Sulfonamides (Antibiotic) Propensity to adverse reactions to drug 10-20-19 13 Swelling [facility] (11 sources) Penicillins (Antibiotic) Drug allergy Unknown [facility] Other (20 sources) Shrimp product Propensity to adverse reactions 01-31-20 24 Unknown, Unknown Reaction, Swelling of Lip/Tongue/Thr oat [facility] (11 sources) Sulfonamides (Antibiotic) Drug allergy Unknown [facility] Other (5 sources) Penicillin; Translations: [penicillin] Drug Allergy Unknown (qualifier value) [facility] (1 source) Sulfonamides (Antibiotic); Translations: [sulfa drugs] Drug allergy Unknown (qualifier value) [facility] (1 source) No Alert Propensity to adverse reactions to drug 09-14-20 22 [facility] (1 source) Penicillin Drug Allergy 10-01-19 23 [facility] (1 source) Propensity to adverse reactions to drug 10-01-19 23 [facility] (1 source) Iodine Drug Allergy 08-30-20 13 [facility] Repository (1 source) Shellfish Drug allergy (disorder) 08-30-20 13 [facility] Rep[facility] (4 sources) sulfADIAZINE Drug Allergy Unknown [facility] Other (20 sources) Substance with sulfonamide structure and antibacterial mechanism of action (substance) Drug allergy 08-31-19 93 Rash, Swelling [facility] Other (1 source) sulfa drug; Translations: [sulfa drug] Propensity to adverse reactions to drug (disorder) [facility] Repository (20 sources) Penicillin V Drug Allergy 01-23-20 23 [facility] (20 sources) Penicillins Drug Allergy 08-01-19 63 Hives [facility] (20 sources) Other; Translations: [OTHER] Allergy to substance 06-30-20 23 Other [facility] (20 sources) Shellfish-Derived Products Drug Allergy 10-20-19 13 Swelling [facility] (14 sources) Shellfish; Translations: [shellfish derived] Allergy to substance 01-31-20 24 Unknown Reaction, Swelling of Lip/Tongue/Thr oat [facility] (1 source) Iodine Drug Allergy 10-22-19 25 [facility] (1 source) Penicillins Drug allergy (disorder) 10-22-19 25 [facility] (1 source) Shrimp product Drug allergy (disorder) 10-22-19 25 [facility] Repository (1 source) Sulfonamides (Antibiotic) Drug allergy (disorder) 10-22-19 25 [facility] Repository (3 sources) Shellfish Protein-Containin g Drug Products Drug Allergy 10-20-19 13 Swelling [facility] Medications Current Medications Medication Drug Class(es) Dates Sig (Normalized) Sig (Original) Accu-Chek Prachi Plus - (9 sources) Accu-Chek Prachi Plus - USE TO TEST BLOOD SUGAR DAILY for 50 Active acetaminophen 500 mg oral ta blet (20 sources) Start: 07-05-2023 acetaminophen (Tylenol) 500 MG tablet Take by mouth every 6 (six) hours if needed 07/05/2023 Active Start: 03-15-2022 take 2 tablets by [facility] every four hours as needed acetaminophen 325 MG tablet Take 2 tablets by mouth every 4 hours as needed for Mild Pain. 50 tablet 1 03/15/2022 Active Start: 03-15-2022 End: 03-16-2022 take 1 tablet by mouth every six hours acetaminophen (TYLENOL) tablet 1,000 mg Start: 11-10-2021 take 2 tablets by [facility] every eight hours Acetaminophen 500 mg Tablet Active 1000 MG PO Every 8 hours November 10, 2021 1:00am Pain Complies with drug therapy Start: 11-10-2021 take 1 tablet by [facility] four times daily as needed for [...] 04/27/21 Status: Ordered take 2 tablets by [facility] every eight hours Tylenol 8 Hour 650 MG 2 tablets as needed Orally every 8 hrs Active acetaminophen 325 mg / HYDROcodone bitartrate 7.5 mg oral tablet (20 sources) Opioid Agonist HYDROcodone-acet aminophen (Uvalda) 7.5-325 MG tablet Active amLODIPine 5 mg oral tablet (20 sources) Dihydropyridine Calcium Channel Dominic Start : 07-03 take 1 tablet by mouth once daily Amlodipine 5 mg tablet Active 5 MG PO Daily 90 90 3 July 03, 2025 4:09pm Complies with drug therapy Start: 01-11-2025 End: 07-03-2025 take 2 tablets by mouth once daily at bedtime Amlodipine 5 mg tablet Discontinued 10 MG PO Daily at bedtime January 11, 2025 12:57pm July 03, 2025 4:09pm Start: 02-28-2024 End: 01-11-2025 take 1 tablet by mouth once daily Amlodipine 5 mg tablet Discontinued 5 MG PO Daily 90 90 3 July 09, 2024 9:33am October 17, 2024 [...] Aggregation Inhibitor, Nonsteroidal Anti-inflammatory Drug Start: 10-01-2022 [id number] Medication aspirin aspirin 300 mg 10/01/2022 Active (Outside) Start: 11-10-2021 take 1 tablet by wendy [facility] once daily in the morning Aspirin (Aspirin Childrens) 81 mg tablet,chewable Active 81 MG PO Every morning November 10, 2021 1:00am On Hold: Resume on 10/24/24. Complies with drug therapy Start: 09-24-2019 aspirin Refill s(s) 0 Start Date: 09/24/19 Status: Ordered take 1 tablet by wendy th once daily aspirin 81 MG EC tablet Take 1 tablet by mouth Daily Active atorvastatin 10 mg oral tablet (20 sources) HMG-CoA Reductase Inhibitor Start: 10-17-2024 End: 06-30-2025 take 1 tablet by mouth once daily in the evening Atorvastatin 10 mg tablet Active 10 MG PO Every evening 90 90 June 30, 2025 8:38pm Complies with drug therapy Start: 07-19-2024 End: 10-17-2024 take 1 tablet by mouth once daily in the evening Atorvastatin 10 mg tablet Discontinued 0 .ROUTE .COMPLEX 90 3 July 19, 2024 12:34pm October 17, 2024 3:59pm TAKE ONE TABLET BY MOUTH EVERY EVENING Start: 06-15-2012 End: 07-19-2024 take 1 tablet by mouth once daily at bedtime Atorvastatin 10 mg tablet Discontinued 10 MG PO Daily at bedtime November 10, 2021 1:00am July 19, 2024 12:34pm benazepril hydrochloride 20 mg oral tablet (20 sources) Angiotensin Converting Enzyme Inhibitor Start: 06-17-2025 take 1 tablet by mouth once daily Benazepril 20 mg tablet Active 0 .ROUTE .COMPLEX 90 3 June 17, 2025 7:35am TAKE 1 TABLET BY MOUTH DAILY Complies with drug therapy Start: 09-20-2024 End: 06-17-2025 take 1 tablet by mouth once daily in the morning Benazepril 20 mg tablet Discontinued 20 MG PO Every morning October 17, 2024 1:00am June 17, 2025 7:35am Start: 06-24-2024 End: 10-17-2024 take 1 tablet by mouth once daily Benazepril 20 mg tablet Discontinued 0 .ROUTE .COMPLEX 90 3 June 24, 2024 5:56pm October 17, 2024 [...] MG PO Twice daily 180 90 3 August 21, 2024 10:56am Complies with drug therapy Start: 04-04-2024 End: 08-21-2024 take 1 tablet by mouth twice daily Carvedilol 6.25 mg tablet Discontinued 6.25 MG PO Twice daily 180 90 3 April 04, 2024 11:39am August 21, 2024 [...] times daily. 60 capsule 0 03/15/2022 Active fluorouracil 50 mg/ml topical cream (2 sources) Nucleoside Metabolic Inhibitor Start: 07-04-2025 End: 09-26-2025 fluorouracil (Efudex) 5 % cream Indications: Actinic keratosis Apply topically in the morning and before bedtime. Apply to directed areas on face, scalp, ears, and back of the hands, bid x 14 days. 40 g 07/04/2025 09/26/2025 Active gabapentin 300 mg oral capsule (20 sources) Anti-epileptic Agent Start: 01-22-2023 gabapentin (Neurontin) 300 MG capsule 01/22/2023 Active glimepiride 1 mg oral tablet (5 sources) Sulfonylurea Start: 02-13-2025 take 0.5 mg by mouth once daily at breakfast Glimepiride 1 mg tablet Active 0.5 MG PO Every morning 45 90 3 February 13, 2025 12:00am administer with breakfast Complies with drug therapy Start: 01-11-2025 End: 02-13-2025 take 0.5 mg by mouth at mealtime Glimepiride 1 mg tabl et Discontinued 0.5 MG PO Daily 15 30 5 January 11, 2025 12:00am February 13, 2025 11:41am Take 30 minutes prior to first meal of day Start: 09-24-2019 take 1 tablet by wendy th once daily glimepiride 1 mg Tab mg tab(s), Oral, Daily, Refills(s) 0 Start Date: 09/24/19 Status: Ordered Kzaaejpxajy-Jjkszteub-Hmd C- Mn (Glucosamine-Chondroitin) capsule (2 sources) Glucosamine-Jordan droit-Vit C-Mn (Glucosamine-Chondroitin) capsule Take by mouth. 0 Active levETIRAcetam 500 mg oral tablet (20 sources) Start: 2022 levETIRAcetam (Keppra) 500 M G tablet 01/22/2023 Active levothyroxine sodium 0.075 m g oral tablet (7 sources) l-Thyr oxine Start: 2024 End: 2024 take 1 tablet by mouth once daily Levothyroxine 75 mcg tablet Active 75 MCG PO Daily 90 90 3 July 12, 2025 10:33am Complies with drug therapy Start: 04-02-2025 End: 05-13-2025 take 1 tablet by mouth once daily Levothyroxine 25 mcg tablet Discontinued 25 MCG PO Daily 30 30 5 April 02, 2025 12:00am May 13, 2025 1:52pm Start: 01-11-2025 End: 01-11-2025 take 1 tablet by mouth once daily Levothyroxine 25 mcg tablet Discontinued 25 MCG PO Daily 30 30 2 January 11, 2025 12:00am January 11, 2025 [...] -Lutein (A Thru Z High Potency) tablet (14 sources) Start: 11-10-19 take 1 tablet by mouth twice daily Multivitamin-Min erals-Lutein (A Thru Z High Potency) tablet Active 1 TAB PO Twice daily November 10, 2021 1:00am Complies with drug therapy Start: 11-10-2021 take 1 tablet by wendy [facility] twice daily Lkvkimckjxac-Eyljuaxn-Qhjnwn (A Thru Z H igh Potency) tablet Active 1 TAB PO Twice daily November 10, 2021 12:00am Start: 11-10-2021 take 1 tablet by wendy th twice daily Metcozqmprrp-Mkglnsjd-Ycwgqn (A Thru Z H igh Potency) tablet Active 1 TAB PO Twice daily November 10, 2021 1:00am Start: 11-10-2021 take 1 tablet by wendy th once daily Idcakighveyo-Gzgyygks-Vksxmm (A Thru Z H igh Potency) tablet Active 1 TAB PO Daily November 10, 2021 1:00am mupirocin 0.02 mg/mg topical ointment (20 sources) RNA Synthetase Inhibitor Antibacterial Start: 06-04-2024 mupirocin (Bactroban ) 2 % ointment 06/04/2024 Active Start: 06-04-2024 End: 10-17-2024 Mupirocin 2 % ointment Disco ntinued 1 APPLIC TOPICAL Twice daily 22 0 June 04, 2024 12:00am October 17, 2024 3:59pm Abrasion of ear canal Abrasion of unspecified ear, initial encounter pantoprazole 40 mg delayed release oral tablet (20 sources) Proton Pump Inhibitor Start: 06-16-2025 take 1 tablet by mouth once daily 30 minutes before breakfast Pantoprazole 40 mg tablet,delayed release (DR/EC) Active 0 .ROUTE .COMPLEX 90 June 16, 2025 5:05pm TAKE 1 TABLET BY MOUTH DAILY ON AN EMPTY STOMACH 30 MINUTES BEFORE BREAKFAST Complies with drug therapy Start: 07-09-2024 End: 06-16-2025 Pantoprazole 40 mg tablet,de layed release (DR/EC) Discontinued 40 MG PO Daily 90 90 3 July 10, 2024 5:36pm October 17, 2024 3:59pm Take on an empty stomach, 30 minutes prior to bkfst Start: 03-15-2022 End: 03-16-2022 take 40 mg by mouth once daily 40 mg, Oral, DAILY EARLY EVENING, First dose on Tue03/15/22 at 1800, Until Discontinued, Indications: Inpt Stress Ulcer Prophylaxis Uvwgxznrprd-Guppcshr-Niidsnz ac 1-0.5-0.075 % solution (10 sources) Start: 12-28-2024 Ivztkivtwef-Eiqpznpd-Nkkipul ac 1-0.5-0.075 % solution Indications: Age-related nuclear cataract of both eyes Administer 1 drop into affected eye(s) in the morning and 1 drop at noon and 1 drop in the evening and 1 drop before bedtime. 10 mL 1 12/28/2024 Active primidone 250 mg oral tablet (1 source) Anti-e pilept ic Agent Start: 08-21-2022 [id number] Medication omeprazole 20 mg capsule,delayed release omeprazole 20 mg capsule,delayed release 20 mg 08/21/2022 Active (Outside) therapeutic multivitamin-minerals tablet (7 sources) Start: 03-15-2022 take 1 tablet by mouth at bedtim e therapeutic multivitamin-minerals tablet Take 1 tablet by mouth at bedtime. 30 tablet 0 03/15/2022 Active traZODone hydrochloride 50 m g oral tablet (20 sources) [place] Start: 01-15-2025 End: 06-27-2025 take 1 tablet by mouth once daily at bedtim e Trazodone 50 mg tablet Active 0 .ROUTE .COMPLEX 90 June 27, 2025 10:10am TAKE ONE TABLET BY MOUTH EVERY NIGHT AT BEDTIME Complies with drug therapy Start: 01-23-2024 End: 10-17-2024 take 1 tablet by mouth once daily at bedtime Trazodone 50 mg tablet Discontinued 0 .ROUTE .COMPLEX 90 July 25, 2024 6:59am October 17, 2024 3:59pm TAKE ONE TABLET BY MOUTH EVERY NIGHT AT BEDTIME Start: 01-23-2024 take 1 tablet by wendy th once daily at bedtime Trazodone Active 0 .ROUTE .COMPLEX 90 January 23, 2024 10:08pm TAKE ONE TABLET BY MOUTH EVERY NIGHT AT BEDTIME Start: 11-10-2021 End: 01-15-2025 take 1 tablet by mouth once daily at bedtime Trazodone 50 mg tablet Discontinued 50 MG PO Daily at bedtime October 17, 2024 1:00am January 15, 2025 1:03pm Start: 09-24-2019 take 1 tablet by wendy [...] MG PO Three times daily 30 10 0 May 16, 2024 12:00am June 04, 2024 11:19am Start: 11-28-2023 benzonatate (T essalon) 100 MG capsule Take 100 mg by mouth as needed in the morning and 100 mg as needed at noon and 100 mg as needed in the evening. 11/28/2023 Active bisacodyl 10 mg rectal suppository [...] tablet doxycycline hyclate 100 mg oral capsule (14 sources) Tetracycline-cla ss Drug Start: 01-31-2024 End: 02-16-2024 take 1 capsule by mouth twice daily Doxycycline Hyclate 100 mg capsule Discontinued 100 MG PO Twice daily 14 7 0 January 31, 2024 12:00am February 16, 2024 4:13pm empagliflozin 10 mg oral tablet (2 sources) Sodium-Glucose Cotransporter 2 Inhibitor Start: 01-10-2025 End: 02-13-2025 take 1 tablet by mouth once daily in the morning Empagliflozin (Jardiance) 10 mg tablet Discontinued 10 MG PO Every morning 30 30 0 January 10, 2025 12:00am February 13, 2025 [...] day for 7 days Oct, Not-Taking/PRN Molnupiravir (17 sources) Start: 05-16-2024 End: 06-04-2024 take 1 capsule by mouth every twelve hours Molnupiravir 200 mg capsule Discontinued 800 MG PO Every 12 hours 40 5 May 16, 2024 2:04pm June 04, 2024 11:19am Start: 05-16-2024 End: 06-04-2024 take 1 capsule by mouth every twelve hours Molnupiravir 200 mg capsule Discontinued 800 MG PO Every 12 hours 40 5 May 16, 2024 2:04pm June 04, 2024 [...] hours 40 5 May 16, 2024 12:00am May 16, 2024 [...] as tolerated 30 tablet 0 03/15/2022 Active propafenone hydrochloride 150 mg oral tablet (20 [...] 31, 2024 3:31pm 7.5mg on Sat. 5mg C-H-F-W-Th-F Start: 01-02-2018 warfarin 5 MG tablet 1 [...] Translations: [Generalized abdominal pain] Onset: 3 Episodic Aortic; peripheral; and visceral artery aneurysms (1 source) Aneurysm of ascending aorta; Translations: [Ascending aortic aneurysm] 06-26-2025 Chronic Comment on above: Echo: Ao 4.0cm - 03/27 024 Biliary tract disease (20 sources) Obstruction of [...] size/function, IVAN - 01/2024, 03/2024,LAAO - 12/2023 Echo: LVEF 60%, norm al RV size/function, IVAN - 03/2024,LAAO - 12/2023 Cataract (20 sources) Bilateral [...] Coronary arteriosclerosis; Translations: [Atherosclerotic heart disease of [place] coronary artery without angina pectoris] Onset: 4 [...] INIT] Onset: 3 Episodic Melanomas of skin (5 sources) History of malignant melanoma of the skin; Translations: [Personal history of malignant melanoma of skin] 06-19-2024 Episodic Miscellaneous mental health disorders (20 sources) Primary insomnia; Translations: [Primary insomnia] Onset: 4 06-23-2024 Chronic Neoplasms of unspecified nature or uncertain behavior (3 sources) Neoplastic disease; Translations: [Neoplasm of unspecified behavior of bone, soft tissue, and skin] 10-04-2024 Episodic Nonspecific chest pain (20 sources) Chest pain; Translations: [Chest pain, unspecified] Onset: 4 Resolved: 5 04-03-2024 Episodic Other acquired deformities (4 sources) Surgical wound finding; Translations: [Acquired deformity of nose] 10-17-2024 Episodic Other aftercare (9 sources) Long-term current use of anticoagulant; Translations: [correction (current) use of anticoagulants] Episodic Other aftercare (2 sources) 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; Translations: [BAG LOADER CURRNT USE ANTICOAGULANTS] Onset: 3 Episodic Other aftercare (5 sources) Encounter for therapeutic drug level monitoring; Translations: [ENC THERAPEUTC DRUG LEVL MONITORING] Onset: 3 Episodic Other aftercare (1 source) ferry terminal agent (current) 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; Translations: [BAG LOADER CURRENT USE OF ASPIRIN] Onset: 3 Episodic Other aftercare (1 source) Other long chain dyeing machine operator (current) drug therapy; Translations: [OTH FDC CURRENT DRUG THERAPY] Onset: 3 Episodic Other and unspecified benign neoplasm (5 sources) Melanocytic nevus of trunk; Translations: [Melanocytic nevi of trunk] 06-19-2024 Episodic Other and unspecified benign neoplasm (2 sources) Melanocytic nevus of lower limb; Translations: [Melanocytic nevi of unspecified lower limb, including hip] 01-03-2025 Episodic Other circulatory disease (5 sources) Spider nevus; Translations: [Nevus, non-neoplastic] 06-19-2024 Episodic Other circulatory disease (5 sources) Telangiectasia of skin of face; Translations: [...] conditions (not mental disorders or infectious disease) (12 sources) Coag./bleeding tests abnormal; Translations: [Abnormal coagulation profile] Onset: 5 Episodic Comment on above: PSA: 2.15 - 11/2021, 1.89 - 06/2023, 1.77 - 07/2024 Other skin disorders (5 sources) Seborrheic keratosis; Translations: [Other seborrheic keratosis] 06-19-2024 Episodic Other skin disorders (5 sources) Lentiginosis; Translations: [Other melanin hyperpigmentation] 06-19-2024 Episodic Other skin disorders (5 sources) Actinic keratosis; Translations: [Actinic keratosis] 06-19-2024 [...] Episodic Poisoning by other medications and drugs (4 sources) 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; Translations: [Poisoning [...] Onset: 4 06-23-2024 Chronic Residual codes; unclassified (12 sources) Periodic leg movements of sleep ; Translations: [Periodic limb movement disorder] Onset: 4 06-23-2024 Chronic Residual codes; unclassified (3 sources) Other hypersomnia; Translations: [Hypersomnia, unspecified] Onset: 4 06-23-2024 Chronic [...] 3 Resolved: 5 08-29-2023 Episodic Thyroid disorders (2 sources) Hypothyroidism; Translations: [Hypothyroidism, unspecified] 04-02-2025 Chronic Unclassified (1 source) History of revision of left total knee arthroplasty; Translations: [History of revision of total replacement of left knee joint] Unclassified (1 source) Drug therapy finding 04-25-2020 Unclassified (5 sources) Chronic atrial fibrillation, unspecified; Translations: [CHRONIC ATRIAL FIBRILLATION UNSPEC] Onset: 3 Viral infection (3 sources) COVID-19; Translations: [Other [...] Translations: [Other keratitis] Onset: 3 Resolved: 4 12-04-2023 Episodic Melanomas of skin (20 sources) Melanoma [...] Translations: [Repeated falls] Onset: 5 Episodic Other eye disorders (20 sources) Dry [...] 2 Episodic Other non-epithelial cancer of skin (20 sources) Personal history of other malignant neoplasm of skin; Translations: [Basal cell carcinoma of face] Onset: 3 Resolved: 4 02-15-2024 Episodic Residual codes; unclassified (20 sources) Family history of malignant neoplasm of skin; Translations: [Family history of malignant neoplasm of other organs or systems] Onset: 3 Resolved: 4 09-24-2019 Episodic Unclassified (9 sources) Elevated transaminase level; Translations: [Elevated transaminase level] Results Test Name Value Interpretation Reference Range Facility Dermatopathology examon 06-26 CPT 41310*1 [facility] 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 COMMENT: This material was reviewed with Dr. Almeida. [facility] Gross Text [facility] ICD10 Code D04.60 [facility] Microscopic Description Microscopic examination performed. [facility] PROTOCOL F - FLAT [facility] [facility] Specimen type Nom (Spec) SPECIMEN: RIGHT UPPER ARM - POSTERIOR [facility] Lesion biopsyon 07-04-2025 Type of biopsy: langford ential Informed consent: [...] taken Amount of lidocaine used: 0.5 cc [facility] Office Visiton 06-25-2025 Follow-up visit [id number] Amina Goncalves 1945 [facility] Provider Department Center 06/25/2025 [facility] Family History Problem Relation Age of Onset Cancer Mother Alcohol abuse Father Heart attack Other Family Status - Relation Status Age at Mother Father Brother Alive Other Level of Service:74298 [place] OFFICE/OUTPATIENT ESTABLISHED MOD MDM 30 MIN (25) Reason for Visit and Comments: Follow-up [082804] - Patient is here today for a routine 6 month follow up. Patient complains of dizziness/lightheaded, after mowed grass, occasional arm and chest pain that comes goes no other symptoms associated. Patient denies SOB, STEPHENSON, Atrial Fibrillation [80] Hypertension [992378] Hyperlipidemia [182] Coronary Artery Disease [187] Dizziness [779899] Normal [facility] Glucose mean value [Mass/vol ume] in Blood Estimated from glycated hemoglobinOrdered By: Augustine Metz on 05-07-2025 Average glucose Estimated from glycated hemoglobin (Bld) [Mass/Vol] 131 mg/dL [facility] Hemoglobin A1c percentageOrd ered By: Augustine Metz on 05-07-2025 HbA1c (Bld) [Mass fraction] 6.2 % 4.5-6.2 [facility] Comment on above: ADA RECOMMENDED LIMI T 4.0 - 6.0ADA THERAPEUTIC TARGET < 7.0ACTION SUGGESTED> 7.0 Laboratory - Chemistry and C hemistry - challengeon 02-22-2025 Free T4 [Mass/Vol] 0.86 ng/dL 0.76-1.46 [facility] TSH Qn 12.995 m[IU]/L High 0.358-3.74 0 [facility] Estimated glomerular filtrat ion rate (GFR) non- Americanon 02-12-2025 GFR/1.73 sq M.predicted among non-blacks MDRD (S/P/Bld) [Vol rate/Area] 48 mL/min/{1.73_m2} Low >=60 mL/min/1.7 3m 2 [facility] Laboratory - Chemistry and C hemistry - challengeon 02-12-2025 Calcium [Mass/Vol] 8.8 mg/dL 8.5-10.1 [facility] Chloride [Moles/Vol] 104 mmol/L 98-107 [facility] CO2 [Moles/Vol] 29.3 mmol/L 21.0-32.0 [facility] Creatinine [Mass/Vol] 1.43 mg/dL High 0.70-1.30 [facility] GFR/1.73 sq M.predicted MDRD (S/P/Bld) [Vol rate/Area] 58 mL/min/{1.73_m2} Low >=60 mL/min/1.7 3m 2 [facility] Glucose [Mass/Vol] 143 mg/dL High 74-106 [facility] Potassium [Moles/Vol] 4.1 mmol/L 3.5-5.1 [facility] Sodium [Moles/Vol] 142 mmol/L 136-145 [facility] Urea nitrogen [Mass/Vol] 17.0 mg/dL 7.0-18.0 [facility] Urea nitrogen/Creatinine [Mass ratio] 11.9 mg/mg [facility] Serum or plasma anion gap de terminationon 02-12-2025 Anion gap [Moles/Vol] 12.8 mmol/L [facility] Basophils Auto (Bld) [#/Vol] on 02-07-2025 Basophils (Bld) [#/Vol] 0.0 10 3/uL 0.0-0.1 [facility] Basophils/100 WBC Auto (Bld) on 02-07-2025 Basophils/100 WBC (Bld) 0.5 % 0.2-2.0 [facility] Eosinophils/100 WBC Auto (Bl d)on 02-07-2025 Eosinophils/100 WBC (Bld) 2.7 % 0.9-7.0 [facility] Erythrocyte distribution wid th Auto (RBC) [Ratio]on 02-07-2025 Erythrocyte distribution width (RBC) [Ratio] 13.4 % 11.0-15.0 [facility] Estimated glomerular filtrat ion rate (GFR) non- Americanon 02-07-2025 GFR/1.73 sq M.predicted among non-blacks MDRD (S/P/Bld) [Vol rate/Area] 36 mL/min/{1.73_m2} Low >=60 mL/min/1.7 3m 2 [facility] Globulin Calc (S) [Mass/Vol] on 02-07-2025 Globulin (S) [Mass/Vol] 2.8 g/dL [facility] Hematocrit Auto (Bld) [Volum e fraction]on 02-07-2025 Hematocrit (Bld) [Volume fraction] 37.2 % Low 42.0-54.0 [facility] Hemoglobin [Mass/volume] in Bloodon 02-07-2025 Hemoglobin (Bld) [Mass/Vol] 12.2 g/dL Low 14.0-18.0 [facility] Laboratory - Chemistry and C hemistry - challengeon 02-07-2025 Albumin [Mass/Vol] 2.7 g/dL Low 3.4-5.0 [facility] ALP [Catalytic activity/Vol] 66 U/L 46-116 [facility] ALT [Catalytic activity/Vol] 20 U/L 16-63 [facility] AST [Catalytic activity/Vol] 16 U/L 15-37 [facility] Bilirubin [Mass/Vol] 0.7 mg/dL 0.2-1.0 [facility] Calcium [Mass/Vol] 8.6 mg/dL 8.5-10.1 [facility] Chloride [Moles/Vol] 103 mmol/L 98-107 [facility] CO2 [Moles/Vol] 29.6 mmol/L 21.0-32.0 [facility] Creatinine [Mass/Vol] 1.84 mg/dL High 0.70-1.30 [facility] GFR/1.73 sq M.predicted MDRD (S/P/Bld) [Vol rate/Area] 43 mL/min/{1.73_m2} Low >=60 mL/min/1.7 3m 2 [facility] Glucose [Mass/Vol] 91 mg/dL 74-106 [facility] Potassium [Moles/Vol] 4.0 mmol/L 3.5-5.1 [facility] Protein [Mass/Vol] 5.5 g/dL Low 6.4-8.2 [facility] Sodium [Moles/Vol] 137 mmol/L 136-145 [facility] Urea nitrogen [Mass/Vol] 25.0 mg/dL High 7.0-18.0 [facility] Urea nitrogen/Creatinine [Mass ratio] 13.6 mg/mg [facility] Laboratory - Hematology and Cell countson 02-07-2025 Immature granulocytes/100 WBC (Bld) 0.2 % 0.0-0.5 [facility] Leukocytes [#/volume] correc iván for nucleated erythrocytes in Blood by Automated counon 02-07-2025 WBC corrected for nucl RBC Auto (Bld) [#/Vol] 6.6 10 3/uL 4.0-11.0 [facility] Lymphocytes Auto (Bld) [#/Vo l]on 02-07-2025 Lymphocytes (Bld) [#/Vol] 1.6 10 3/uL 1.2-3.8 [facility] Lymphocytes/100 WBC Auto (Bl d)on 02-07-2025 Lymphocytes/100 WBC (Bld) 24.2 % 20.5-60.0 [facility] MCH Auto (RBC) [Entitic mass ]on 02-07-2025 MCH (RBC) [Entitic mass] 31.1 pg 25.9-34.0 [facility] MCHC Auto (RBC) [Mass/Vol]on 02-07-2025 MCHC (RBC) [Mass/Vol] 32.8 g/dL 29.9-35.2 [facility] MCV Auto (RBC) [Entitic vol] on 02-07-2025 MCV (RBC) [Entitic vol] 94.9 fL High 80.0-94.0 [facility] Monocytes Auto (Bld) [#/Vol] on 02-07-2025 Monocytes (Bld) [#/Vol] 0.8 10 3/uL 0.3-0.8 [facility] Monocytes/100 WBC Auto (Bld) on 02-07-2025 Monocytes/100 WBC (Bld) 12.1 % High 1.7-12.0 [facility] Neutrophils Auto (Bld) [#/Vo l]on 02-07-2025 Neutrophils (Bld) [#/Vol] 4.0 10 3/uL 1.4-6.5 [facility] Neutrophils/100 WBC Auto (Bl d)on 02-07-2025 Neutrophils/100 WBC (Bld) 60.3 % 43.0-75.0 [facility] No Panel Informationon 02-07 Eosinophils # (Auto) 0.2 10 3/uL 0.0-0.7 [facility] Immature Granulocyte # (Auto) 0.01 10 3/uL 0.00-0.03 [facility] Platelet mean volume Auto (B ld) [Entitic vol]on 02-07-2025 Platelet mean volume (Bld) [Entitic vol] 11.6 fL 9.5-13.5 [facility] Platelets Auto (Bld) [#/Vol] on 02-07-2025 Platelets (Bld) [#/Vol] 126 10 3/uL Low 150-450 [facility] RBC Auto (Bld) [#/Vol]on RBC (Bld) [#/Vol] 3.92 10 6/uL Low 4.70-6.10 [facility] Serum or plasma albumin/glob ulin mass ratioon 02-07-2025 Albumin/Globulin [Mass ratio] 1.0 {ratio} [facility] Serum or plasma anion gap de terminationon 02-07-2025 Anion gap [Moles/Vol] 8.4 mmol/L [facility] Basophils Auto (Bld) [#/Vol] on 02-06-2025 Basophils (Bld) [#/Vol] 0.0 10 3/uL 0.0-0.1 [facility] Basophils/100 WBC Auto (Bld) on 02-06-2025 Basophils/100 WBC (Bld) 0.3 % 0.2-2.0 [facility] Eosinophils/100 WBC Auto (Bl d)on 02-06-2025 Eosinophils/100 WBC (Bld) 0.0 % Low 0.9-7.0 [facility] Erythrocyte distribution wid th Auto (RBC) [Ratio]on 02-06-2025 Erythrocyte distribution width (RBC) [Ratio] 13.2 % 11.0-15.0 [facility] Estimated glomerular filtrat ion rate (GFR) non- Americanon 02-06-2025 GFR/1.73 sq M.predicted among non-blacks MDRD (S/P/Bld) [Vol rate/Area] 27 mL/min/{1.73_m2} Low >=60 mL/min/1.7 3m 2 [facility] Globulin Calc (S) [Mass/Vol] on 02-06-2025 Globulin (S) [Mass/Vol] 3.0 g/dL [facility] Hematocrit Auto (Bld) [Volum e fraction]on 02-06-2025 Hematocrit (Bld) [Volume fraction] 39.9 % Low 42.0-54.0 [facility] Hemoglobin [Mass/volume] in Bloodon 02-06-2025 Hemoglobin (Bld) [Mass/Vol] 13.5 g/dL Low 14.0-18.0 [facility] Laboratory - Chemistry and C hemistry - challengeon 02-06-2025 Bilirubin Ql (U) Negative NEGATIVE [facility] Glucose (U) [Mass/Vol] Negative NEGATIVE [facility] Ketones Ql (U) Negative NEGATIVE [facility] pH (U) 6.0 [pH] 5.0-9.0 [facility] Specific gravity (U) [Rel density] 1.010 1.005-1.02 5 [facility] Urobilinogen Qn (U) 0.2 {Jolie'U}/dL 0.2-1.0 [facility] Albumin [Mass/Vol] 3.3 g/dL Low 3.4-5.0 [facility] ALP [Catalytic activity/Vol] 80 U/L 46-116 [facility] ALT [Catalytic activity/Vol] 24 U/L 16-63 [facility] Amylase [Catalytic activity/Vol] 41 U/L 25-115 [facility] AST [Catalytic activity/Vol] 18 U/L 15-37 [facility] Bilirubin [Mass/Vol] 0.9 mg/dL 0.2-1.0 [facility] Bilirubin.direct [Mass/Vol] 0.2 mg/dL 0.0-0.2 [facility] Calcium [Mass/Vol] 8.6 mg/dL 8.5-10.1 [facility] Chloride [Moles/Vol] 102 mmol/L 98-107 [facility] CO2 [Moles/Vol] 26.9 mmol/L 21.0-32.0 [facility] Creatinine [Mass/Vol] 2.33 mg/dL High 0.70-1.30 [facility] GFR/1.73 sq M.predicted MDRD (S/P/Bld) [Vol rate/Area] 33 mL/min/{1.73_m2} Low >=60 mL/min/1.7 3m 2 [facility] Glucose [Mass/Vol] 221 mg/dL High 74-106 [facility] Lipase [Catalytic activity/Vol] 28.0 U/L 16.0-77.0 [facility] Potassium [Moles/Vol] 4.2 mmol/L 3.5-5.1 [facility] Protein [Mass/Vol] 6.3 g/dL Low 6.4-8.2 [facility] Sodium [Moles/Vol] 138 mmol/L 136-145 [facility] Urea nitrogen [Mass/Vol] 21.0 mg/dL High 7.0-18.0 [facility] Urea nitrogen/Creatinine [Mass ratio] 9.0 mg/mg [facility] Laboratory - Hematology and Cell countson 02-06-2025 Immature granulocytes/100 WBC (Bld) 0.5 % 0.0-0.5 [facility] Laboratory - Specimen inform ationon 02-06-2025 Appearance (U) CLEAR CLEAR [facility] Color (U) LT. YELLOW YELLOW [facility] Laboratory - Urinalysison Leukocyte esterase Test strip Ql (U) Negative NEGATIVE [facility] Mucus Ql (Urine sed) NONE SEEN NONE SEEN [facility] Nitrite Ql (U) Negative NEGATIVE [facility] Protein Ql (U) Negative NEG/TRACE [facility] Leukocytes [#/volume] correc iván for nucleated erythrocytes in Blood by Automated counon 02-06-2025 WBC corrected for nucl RBC Auto (Bld) [#/Vol] 10.8 10 3/uL 4.0-11.0 [facility] Lymphocytes Auto (Bld) [#/Vo l]on 02-06-2025 Lymphocytes (Bld) [#/Vol] 1.0 10 3/uL Low 1.2-3.8 [facility] Lymphocytes/100 WBC Auto (Bl d)on 02-06-2025 Lymphocytes/100 WBC (Bld) 9.0 % Low 20.5-60.0 [facility] MCH Auto (RBC) [Entitic mass ]on 02-06-2025 MCH (RBC) [Entitic mass] 31.9 pg 25.9-34.0 [facility] MCHC Auto (RBC) [Mass/Vol]on 02-06-2025 MCHC (RBC) [Mass/Vol] 33.8 g/dL 29.9-35.2 [facility] MCV Auto (RBC) [Entitic vol] on 02-06-2025 MCV (RBC) [Entitic vol] 94.3 fL High 80.0-94.0 [facility] Monocytes Auto (Bld) [#/Vol] on 02-06-2025 Monocytes (Bld) [#/Vol] 0.7 10 3/uL 0.3-0.8 [facility] Monocytes/100 WBC Auto (Bld) on 02-06-2025 Monocytes/100 WBC (Bld) 6.8 % 1.7-12.0 [facility] Neutrophils Auto (Bld) [#/Vo l]on 02-06-2025 Neutrophils (Bld) [#/Vol] 9.0 10 3/uL High 1.4-6.5 [facility] Neutrophils/100 WBC Auto (Bl d)on 02-06-2025 Neutrophils/100 WBC (Bld) 83.4 % High 43.0-75.0 [facility] No Panel Informationon 02-06 Urine Bacteria TRACE #/HPF Abnormal NONE SEEN [facility] Urine Culture Reflexed NO [facility] Urine Occult Blood Negative NEGATIVE [facility] Urine Other Casts NONE SEEN #/LPF NONE SEEN [facility] Urine Other Crystals None Seen #/HPF None Seen [facility] Urine RBC NONE SEEN #/HPF 0-2 [facility] Urine Squamous Epithelial Cells RARE #/LPF NONE/RARE [facility] Urine WBC NONE SEEN #/HPF NONE SEEN [facility] Bedside Influenza Type A Antigen Negative [facility] Comment on above: Negative for Flu A p rotein antigen. Infection due to Flu Acannot be ruled out. Flu A antigen in the sample may bebelow the detection limit of the test. Bedside Influenza Type B Antigen Negative [facility] Comment on above: Negative for Flu B p rotein antigen. Infection due to Flu Bcannot be ruled out. Flu B antigen in the sample may bebelow the detection limit of the test. Eosinophils # (Auto) 0.0 10 3/uL 0.0-0.7 [facility] Immature Granulocyte # (Auto) 0.05 10 3/uL High 0.00-0.03 [facility] Troponin I High Sensitivity 5.5 pg/mL 4.0-76.1 [facility] Comment on above: CUT-OFF POINTS [...] volume (Bld) [Entitic vol] 11.4 fL 9.5-13.5 [facility] Platelets Auto (Bld) [#/Vol] on 02-06-2025 Platelets (Bld) [#/Vol] 164 10 3/uL 150-450 [facility] RBC Auto (Bld) [#/Vol]on RBC (Bld) [#/Vol] 4.23 10 6/uL Low 4.70-6.10 [facility] Serum or plasma albumin/glob ulin mass ratioon 02-06-2025 Albumin/Globulin [Mass ratio] 1.1 {ratio} [facility] Serum or plasma anion gap de terminationon 02-06-2025 Anion gap [Moles/Vol] 13.3 mmol/L [facility] Globulin Calc (S) [Mass/Vol] on 01-11-2025 Globulin (S) [Mass/Vol] 2.7 g/dL [facility] Laboratory - Chemistry and C hemistry - challengeon 01-11-2025 Albumin [Mass/Vol] 3.5 g/dL 3.4-5.0 [facility] ALP [Catalytic activity/Vol] 81 U/L 46-116 [facility] ALT [Catalytic activity/Vol] 20 U/L 16-63 [facility] AST [Catalytic activity/Vol] 16 U/L 15-37 [facility] Bilirubin [Mass/Vol] 0.7 mg/dL 0.2-1.0 [facility] Bilirubin.direct [Mass/Vol] 0.2 mg/dL 0.0-0.2 [facility] Free T4 [Mass/Vol] 0.88 ng/dL 0.76-1.46 [facility] Protein [Mass/Vol] 6.2 g/dL Low 6.4-8.2 [facility] TSH Qn 15.269 m[IU]/L High 0.358-3.74 0 [facility] Office Visiton 01-11-2025 Follow-up visit [id number] Amina Goncalves 1945 M Date Provider Department Center 01/11/2025 [facility] Family History Problem Relation Age of Onset Cancer Mother Alcohol abuse Father Heart attack Other Family Status - Relation Status Age at Mother Father Brother Alive Other Level of Service:66002 [place] OFFICE/OUTPATIENT ESTABLISHED MOD MDM 30 MIN Normal [facility] Serum or plasma albumin/glob ulin mass ratioon 01-11-2025 Albumin/Globulin [Mass ratio] 1.3 {ratio} [facility] Basophils/100 WBC Manual cnt (Bld)on 01-09-2025 Basophils/100 WBC (Bld) 0.0 % Low 0.2-2.0 [facility] Eosinophils/100 WBC Manual c nt (Bld)on 01-09-2025 Eosinophils/100 WBC (Bld) 0.0 % Low 0.9-7.0 [facility] Erythrocyte distribution wid th Auto (RBC) [Ratio]on 01-09-2025 Erythrocyte distribution width (RBC) [Ratio] 12.8 % 11.0-15.0 [facility] Glucose mean value [Mass/vol ume] in Blood Estimated from glycated hemoglobinon 01-09-2025 Average glucose Estimated from glycated hemoglobin (Bld) [Mass/Vol] 186 mg/dL [facility] Hematocrit Auto (Bld) [Volum e fraction]on 01-09-2025 Hematocrit (Bld) [Volume fraction] 43.2 % 42.0-54.0 [facility] Hemoglobin A1c percentageon 01-09-2025 HbA1c (Bld) [Mass fraction] 8.1 % High 4.5-6.2 [facility] Comment on above: ADA RECOMMENDED LIMI T 4.0 - 6.0ADA THERAPEUTIC TARGET < 7.0ACTION SUGGESTED> 7.0 Hemoglobin [Mass/volume] in Bloodon 01-09-2025 Hemoglobin (Bld) [Mass/Vol] 14.5 g/dL 14.0-18.0 [facility] Laboratory - Hematology and Cell countson 01-09-2025 Lymphocytes/100 WBC (Bld) 23.0 % 20.5-60.0 [facility] Monocytes/100 WBC (Bld) 4.0 % 1.7-12.0 [facility] Leukocytes [#/volume] correc iván for nucleated erythrocytes in Blood by Automated counon 01-09-2025 WBC corrected for nucl RBC Auto (Bld) [#/Vol] 6.2 10 3/uL 4.0-11.0 [facility] MCH Auto (RBC) [Entitic mass ]on 01-09-2025 MCH (RBC) [Entitic mass] 31.3 pg 25.9-34.0 [facility] MCHC Auto (RBC) [Mass/Vol]on 01-09-2025 MCHC (RBC) [Mass/Vol] 33.6 g/dL 29.9-35.2 [facility] MCV Auto (RBC) [Entitic vol] on 01-09-2025 MCV (RBC) [Entitic vol] 93.3 fL 80.0-94.0 [facility] No Panel Informationon 01-09 Absolute Basophils (Manual) 0.00 10 3/uL 0.00-0.10 [facility] Eosinophils # (Manual) 0.00 10 3/uL 0.00-0.70 [facility] Lymphocytes # (Manual) 1.42 10 3/uL 1.20-3.80 [facility] Monocytes # (Manual) 0.24 10 3/uL Low 0.30-0.80 Fi [facility] Reactive Lymphocytes 0.12 [facility] Reactive Lymphocytes 2.0 % [facility] Segmented Neutrophils # (Manual) 4.40 10 3/uL 1.4-6.5 [facility] Platelet mean volume Auto (B ld) [Entitic vol]on 01-09-2025 Platelet mean volume (Bld) [Entitic vol] 11.3 fL 9.5-13.5 [facility] Platelets Auto (Bld) [#/Vol] on 01-09-2025 Platelets (Bld) [#/Vol] 153 10 3/uL 150-450 [facility] RBC Auto (Bld) [#/Vol]on RBC (Bld) [#/Vol] 4.63 10 6/uL Low 4.70-6.10 [facility] Segmented neutrophils/100 WB C Manual cnt (Bld)on 01-09-2025 Segmented neutrophils/100 WBC (Bld) 71.0 % 43.0-75.0 [facility] No Panel Informationon 01-03 [facility] Ophthalmic OCT panelon 12-28 [facility] Right Eye Images reviewed and comparison made to baseline, Images reviewed. To assess optic nerve function and for use in future follow-up. Reliability: good and adequate. Left Eye Images reviewed and comparison made to baseline, Images reviewed. To assess optic nerve function and for use in future follow-up. Reliability: good and adequate. Notes Good nerve fiber layer (NFL) thickness both eyes (OU). [facility] Radiology Study observation (narrative) [facility] Optical coherence tomography study reporton 12-28-2024 [facility] Radiology Study observation (narrative) [facility] US Eye+Orbit - bilateralon 0 12-28-2024 Diagnosis: Cataract both eyes (OU) Testing Indication: Performed for preop measurements in the determination of an intraocular lens (IOL) for both eyes (OU) Test Reliability: Good quality both eyes (OU) Interpretation: Good measurements for intraocular lens (IOL) calculation purposes. Calculation made for both eyes (OU). [facility] Radiology Study observation (narrative) [facility] GLUCOSE POCT GLUCOMETERSon 0 10-22-2024 COMMEMT1 Glu2: Cleaned Meter [facility] Glucose [Mass/Vol] 157 mg/dL [facility] Comment on above: Random Glucose Refer ence Range is dependent on time and content of last meal. Glucose of more than 200 mg/dL in a nonstressed, ambulatory subject supports the diagnosis of Diabetes Mellitus. [facility] COMMEMT1 Glu2: Cleaned Meter [facility] Glucose [Mass/Vol] 164 mg/dL [facility] Comment on above: Random Glucose Refer ence Range is dependent on time and content of last meal. Glucose of more than 200 mg/dL in a nonstressed, ambulatory subject supports the diagnosis of Diabetes Mellitus. [facility] Glucose Glucometer (dC) [M ass/Vol]Ordered By: Augustine Freitas on 10-22-2024 Glucose [Mass/Vol] Capillary blood gluc ose measurement by glucometer (mass/volume) [facility] Comment on above: Random Glucose Refer ence Range is dependent on time and content of last meal. Glucose of more than 200 mg/dL in a nonstressed, ambulatory subject supports the diagnosis of Diabetes Mellitus. Glucose Poct Glucometerson 0 10-22-2024 Commemt1 Glu2: Cleaned Meter Normal [facility] Comment on above: Result Comment: PERF ORMED BY: [facility] [address] [place] [address] PATHOLOGIST [employer] GUERDA ESQUIVEL M.D. Performed By: #### G LULS #### Point of Care testing , Glucose [Mass/Vol] 157 mg/dL Normal [facility] Comment on above: Result Comment: [facility] Glucose Reference Range is dependent on time and content of last meal. Glucose of more than 200 mg/dL in a nonstressed, ambulatory subject supports the diagnosis of Diabetes Mellitus. Performed By: #### G LULS #### Point of Care testing , Commemt1 Glu2: Cleaned Meter Normal [facility] Comment on above: Result Comment: PERF ORMED BY: [place] [address] PATHOLOGIST [employer] GUERDA ESQUIVEL M.D. Performed By: #### G LULS #### Point of Care testing , Glucose [Mass/Vol] 164 mg/dL Normal [facility] Comment on above: Result Comment: [facility] Glucose Reference Range is dependent on time and content of last meal. Glucose of more than 200 mg/dL in a nonstressed, ambulatory subject supports the diagnosis of Diabetes Mellitus. Performed By: #### G LULS #### Point of Care testing , No Panel InformationOrdered By: Augustine Freitas on 10-22-2024 Bedside Glucose Comment Glu2: cleaned meter [facility] Basic Metabolic Panelon 09-27 Anion gap [Moles/Vol] 13.1 mmol/L Normal 6.0-15.0 [facility] Comment on above: Performed By: #### C BC, BMP #### [place] [address] [place] Calcium [Mass/Vol] 9.0 mg/dL Normal 8.6-10.3 [facility] Comment on above: Result Comment: PERF ORMED BY: [place] [address] PATHOLOGIST [employer] GUERDA ESQUIVEL M.D. Performed By: #### C BC, BMP #### [place] [address] [place] Chloride [Moles/Vol] 103 mmol/L Normal 98-107 [facility] Comment on above: Performed By: #### C BC, BMP #### [place] [address] [place] CO2 [Moles/Vol] 30.3 mmol/L Normal 21.0-31.0 [facility] Comment on above: Performed By: #### C BC, BMP #### [place] [address] Creatinine [Mass/Vol] 1.32 mg/dL High 0.70-1.30 [facility] Comment on above: Performed By: #### C BC, BMP #### [address] Estimated GFR 55.209 mL/Min Normal [facility] Comment on above: Performed By: #### C BC, BMP #### [address] Glucose [Mass/Vol] 175 mg/dL High 70-100 [facility] Comment on above: Result Comment: [facility] Glucose Reference Range is dependent on time and content of last meal. Glucose of more than 200 mg/dL in a nonstressed, ambulatory subject supports the diagnosis of Diabetes Mellitus. ADA recommended reference range Performed By: #### C BC, BMP #### [address] Potassium [Moles/Vol] 4.4 mmol/L Normal 3.5-5.1 [facility] Comment on above: Performed By: #### C BC, BMP #### [address] Sodium [Moles/Vol] 142 mmol/L Normal 136-145 [facility] Comment on above: Performed By: #### C BC, BMP #### [address] Urea nitrogen [Mass/Vol] 16 mg/dL Normal 7-25 [facility] Comment on above: Performed By: #### C BC, BMP #### [address] Basic metabolic 1998 panelon 10-17-2024 Anion gap [Moles/Vol] 13.1 mmol/L 6.0 - 15.0 meq/L [facility] Calcium [Mass/Vol] 9 mg/dL 8.6 - 10. 3 mg/dL [facility] Chloride [Moles/Vol] 103 mmol/L 98 - 10 7 mmol/L [facility] CO2 [Moles/Vol] 30.3 mmol/L 21.0 - 31.0 mmol/L [facility] Creatinine (U) [Mass/Vol] 1.32 mg/dL High 0.70 - 1.30 mg/dL [facility] GFR/1.73 sq M.predicted MDRD (S/P/Bld) [Vol rate/Area] 55.209 mL/min/{1.73_m2} mL/Min [facility] Glucose [Mass/Vol] 175 mg/dL High 70 - 100 mg/dL [facility] Comment on above: Random Glucose Refer ence Range is dependent on time and content of last meal. Glucose of more than 200 mg/dL in a nonstressed, ambulatory subject supports the diagnosis of Diabetes Mellitus. ADA recommended reference range Interpretation and review of laboratory results Abnormal [facility] Potassium [Moles/Vol] 4.4 mmol/L 3.5 - 5.1 mmol/L [facility] Sodium [Moles/Vol] 142 mmol/L 136 - 145 mmol/L [facility] Urea nitrogen [Mass/Vol] 16 mg/dL 7 - 25 mg/dL [facility] Basophils Auto (Bld) [#/Vol] Ordered By: Augustine Freitas on 10-17-2024 Basophils (Bld) [#/Vol] Automated basophil count 0.0-0.2 [facility] Basophils/100 WBC Auto (Bld) Ordered By: Augustine Freitas on 10-17-2024 Basophils/100 WBC (Bld) Automated basophil % . [facility] CBC W Auto Differential pane l (Bld)on 10-17-2024 Basophils (Bld) [#/Vol] 0 10*3/uL 0.0 - 0.2 10*3/uL [facility] Basophils/100 WBC Manual cnt (Syn fld) 0.5 % . [facility] Eosinophils (Bld) [#/Vol] 0.1 10*3/uL 0.0 - 0.45 10*3/uL [facility] Eosinophils/100 WBC Manual cnt (Syn fld) 2 % . [facility] Erythrocyte distribution width (RBC) [Ratio] 14.2 % 12.0 - 14.8 % [facility] Hematocrit (Bld) [Volume fraction] 43.9 % 38.8 - 50.0 % [facility] Hemoglobin (Bld) [Mass/Vol] 14.8 g/dL 13.0 - 17.0 g/dL [facility] Lymphocytes (Bld) [#/Vol] 1.5 10*3/uL 1.00 - 4.8 10*3/uL [facility] Lymphocytes/100 WBC Manual cnt (Syn fld) 28.9 % . [facility] MCH (RBC) [Entitic mass] 31.3 pg 27.5 - 35.2 pg [facility] MCHC (RBC) [Mass/Vol] 33.6 g/dL 32.5 - 35.6 g/dL [facility] MCV (RBC) [Entitic vol] 93.1 fL 83.5 - 101 fL [facility] Monocytes (Bld) [#/Vol] 0.5 10*3/uL 0.0 - 0.8 10*3/uL [facility] Monocytes+Macrophages/ 100 WBC Manual cnt (Syn fld) 9.3 % . [facility] Neutrophils (Bld) [#/Vol] 3.2 10*3/uL 1.8 - 7.7 10*3/uL [facility] Neutrophils/100 WBC Manual cnt (Syn fld) 59.3 % . [facility] NRBC 0.1 /100{WBC} 0 - 0.5 /100{WBC} [facility] Platelet mean volume (Bld) [Entitic vol] 9.5 fL 6.6 - 10.1 fL [facility] Platelets (Bld) [#/Vol] 160 10*3/uL 150 - 450 10*3/uL [facility] RBC LM.HPF (Urine sed) [#/Area] 4.72 10*6/uL 3.90 - 5.60 10*6/uL [facility] WBC (Bld) [#/Vol] 5.3 10*3/uL 4.1 - 10.5 10*3/uL [facility] WBC LM.HPF (Urine sed) [#/Area] 5.3 10*3/uL 4.1 - 10.5 10*3/uL [facility] Calcium [Mass/volume] in Ser um or PlasmaOrdered By: Augustine Freitas on 10-17-2024 Calcium [Mass/Vol] Calcium [Mass/volume ] in Serum or Plasma 8.6-10.3 [facility] Carbon dioxide, total [Moles /volume] in Serum or PlasmaOrdered By: Augustine Freitas on 10-17-2024 CO2 [Moles/Vol] Carbon dioxide, tota l [Moles/volume] in Serum or Plasma 21.0-31.0 [facility] Chloride [Moles/volume] in S marnie or PlasmaOrdered By: Augustine Freitas on 10-17-2024 Chloride [Moles/Vol] Chloride [Moles/vol ume] in Serum or Plasma 98-107 [facility] Complete Blood Count Auto Di ffon 10-17-2024 Basophils (Bld) [#/Vol] 0.0 10*3/uL Normal 0.0-0.2 [facility] Comment on above: Result Comment: PERF ORMED BY: [place] [address] PATHOLOGIST [employer] GUERDA ESQUIVEL M.D. Performed By: #### C BC, BMP #### [address] Basophils/100 WBC (Bld) 0.5 % Normal . [facility] Comment on above: Performed By: #### C BC, BMP #### [address] Eosinophils (Bld) [#/Vol] 0.1 10*3/uL Normal 0.0-0.45 [facility] Comment on above: Performed By: #### C BC, BMP #### [address] Eosinophils/100 WBC (Bld) 2.0 % Normal . [facility] Comment on above: Performed By: #### C BC, BMP #### [address] Erythrocyte distribution width (RBC) [Ratio] 14.2 % Normal 12.0-14.8 [facility] Comment on above: Performed By: #### C BC, BMP #### [address] Hematocrit (Bld) [Volume fraction] 43.9 % Normal 38.8-50.0 [facility] Comment on above: Performed By: #### C BC, BMP #### [facility] [address] Hemoglobin (Bld) [Mass/Vol] 14.8 g/dL Normal 13.0-17.0 [facility] Comment on above: Performed By: #### C BC, BMP #### [address] Lymphocytes (Bld) [#/Vol] 1.5 10*3/uL Normal 1.00-4.8 [facility] Comment on above: Performed By: #### C BC, BMP #### [place] [address] [place] Lymphocytes/100 WBC (Bld) 28.9 % Normal . [facility] Comment on above: Performed By: #### C BC, BMP #### [address] MCH (RBC) [Entitic mass] 31.3 pg Normal 27.5-35.2 [facility] Comment on above: Performed By: #### C BC, BMP #### [place] [address] [place] MCV (RBC) [Entitic vol] 93.1 fL Normal 83.5-101 [facility] Comment on above: Performed By: #### C BC, BMP #### [address] Mean Corpuscular HGB Conc 33.6 g/dL Normal 32.5-35.6 [facility] Comment on above: Performed By: #### C BC, BMP #### [place] [address] [place] Monocytes (Bld) [#/Vol] 0.5 10*3/uL Normal 0.0-0.8 [facility] Comment on above: Performed By: #### C BC, BMP #### [place] [address] [place] Monocytes/100 WBC (Bld) 9.3 % Normal . [facility] Comment on above: Performed By: #### C BC, BMP #### [facility] [address] [place] [address] [place] Neutrophils (Bld) [#/Vol] 3.2 10*3/uL Normal 1.8-7.7 [facility] Comment on above: Performed By: #### C BC, BMP #### [facility] [address] [place] [address] [place] Neutrophils/100 WBC (Bld) 59.3 % Normal . [facility] Comment on above: Performed By: #### C BC, BMP #### [facility] [address] NRBC% 0.1 /100{WBC} Normal 0-0.5 [facility] Comment on above: Performed By: #### C BC, BMP #### [facility] [address] Platelet mean volume (Bld) [Entitic vol] 9.5 fL Normal 6.6-10.1 [facility] Comment on above: Performed By: #### C BC, BMP #### [facility] [address] [place] [address] [place] Platelets (Bld) [#/Vol] 160 10*3/uL Normal 150-450 [facility] Comment on above: Performed By: #### C BC, BMP #### [facility] [address] [place] [id number] [place] RBC (Bld) [#/Vol] 4.72 10*6/uL Normal 3.90-5.60 [facility] Comment on above: Performed By: #### C BC, BMP #### [facility] [address] [place] [id number] [place] WBC (Bld) [#/Vol] 5.3 10*3/uL Normal 4.1-10.5 [facility] Comment on above: Performed By: #### C BC, BMP #### [facility] [address] [place] [id number] [place] Creatinine [Mass/volume] in Serum or PlasmaOrdered By: Augustine Freitas on 10-17-2024 Creatinine [Mass/Vol] Creatinine [Mass/v olume] in Serum or Plasma High 0.70-1.30 [facility] ECG 12 lead ECGon 10-17-2024 ECG 12 lead ECG [facility] Main [address] [address] Electrocardiograph Report Signed Patient: Tito Goncalves MR#: [id number] 70 : 1945 Acct:[id number] Age/Sex: 79 / M ADM Date: 10/17/24 Loc: Room: Type: [facility] Attending Dr: Augustine Freitas DO Ordering Provider: [...] in Lateral leads Confirmed by Oliver Rubio ([id number]) on 10/17/2024 4:52:19 PM Referred By: Electronically Signed By: Olvier Rubio Transcribed By: MUS Signed By Oliver Rubio MD 10/17/24 1659 Normal [facility] Eosinophils Auto (Bld) [#/Vo l]Ordered By: Augustine Freitas on 10-17-2024 Eosinophils (Bld) [#/Vol] Automated eosinophil count 0.0-0.45 [facility] Eosinophils/100 WBC Auto (Bl d)Ordered By: Augustine Freitas on 10-17-2024 Eosinophils/100 WBC (Bld) Automated eosinophil % . [facility] Erythrocyte distribution wid th Auto (RBC) [Ratio]Ordered By: Augustine Freitas on 10-17-2024 Erythrocyte distribution width (RBC) [Ratio] Erythrocyte distribution width [Ratio] by Automated count 12.0-14.8 [facility] Glucose [Mass/volume] in Ser um or PlasmaOrdered By: Augustine Freitas on 10-17-2024 Glucose [Mass/Vol] Glucose [Mass/volume ] in Serum or Plasma High 70-100 [facility] Comment on above: ADA recommended refe rence rangeRandom Glucose Reference Range is dependent on time and content of last meal. Glucose of more than 200 mg/dL in a nonstressed, ambulatory subject supports the diagnosis of Diabetes Mellitus. Hematocrit Auto (Bld) [Volum e fraction]Ordered By: Augustine Freitas on 10-17-2024 Hematocrit (Bld) [Volume fraction] Hematocrit [Volume Fraction] of Blood by Automated count 38.8-50.0 [facility] Hemoglobin [Mass/volume] in BloodOrdered By: Augustine Freitas on 10-17-2024 Hemoglobin (Bld) [Mass/Vol] Hemoglobin [Mass/volume] in Blood 13.0-17.0 [facility] Leukocytes [#/volume] correc iván for nucleated erythrocytes in Blood by Automated counOrdered By: Augustine Freitas on 10-17-2024 WBC corrected for nucl RBC Auto (Bld) [#/Vol] Leukocytes [#/volume] corrected for nucleated erythrocytes in Blood by Automated coun 4.1-10.5 [facility] Lymphocytes Auto (Bld) [#/Vo l]Ordered By: Augustine Freitas on 10-17-2024 Lymphocytes (Bld) [#/Vol] Lymphocytes [#/volume] in Blood by Automated count 1.00-4.8 [facility] Lymphocytes/100 WBC Auto (Bl d)Ordered By: Augustine Freitas on 10-17-2024 Lymphocytes/100 WBC (Bld) Lymphocytes/100 leukocytes in Blood by Automated count . [facility] MCH Auto (RBC) [Entitic mass ]Ordered By: Augustine Freitas on 10-17-2024 MCH (RBC) [Entitic mass] MCH [Entitic mass] by Automated count 27.5-35.2 [facility] MCHC Auto (RBC) [Mass/Vol]Or dered By: Augustine Freitas on 10-17-2024 MCHC (RBC) [Mass/Vol] MCHC [Mass/volume] by Automated count 32.5-35.6 [facility] MCV Auto (RBC) [Entitic vol] Ordered By: Augustine Freitas on 10-17-2024 MCV (RBC) [Entitic vol] MCV [Entitic volume] by Automated count 83.5-101 [facility] Monocytes Auto (Bld) [#/Vol] Ordered By: Augustine Freitas on 10-17-2024 Monocytes (Bld) [#/Vol] Automated blood monocyte count 0.0-0.8 [facility] Monocytes/100 WBC Auto (Bld) Ordered By: Augustine Freitas on 10-17-2024 Monocytes/100 WBC (Bld) Automated monocyte % . [facility] Neutrophils Auto (Bld) [#/Vo l]Ordered By: Augustine Freitas on 10-17-2024 Neutrophils (Bld) [#/Vol] Neutrophils [#/volume] in Blood by Automated count 1.8-7.7 [facility] Neutrophils/100 WBC Auto (Bl d)Ordered By: Augustine Freitas on 10-17-2024 Neutrophils/100 WBC (Bld) Automated neutrophil % . [facility] No Panel InformationOrdered By: Augustine Freitas on 10-17-2024 Estimated GFR (CKD-EPI) 55.209 mL/Min [facility] Creatinine Clearance (Chem N/A [facility] Nucleated erythrocytes [Pres ence] in Blood by Automated countOrdered By: Augustine Freitas on 10-17-2024 Nucleated RBC Auto Ql (Bld) Nucleated erythrocytes [Presence] in Blood by Automated count 0-0.5 [facility] Platelet mean volume Auto (B ld) [Entitic vol]Ordered By: Augustine Freitas on 10-17-2024 Platelet mean volume (Bld) [Entitic vol] Platelet mean volume [Entitic volume] in Blood by Automated count 6.6-10.1 [facility] Platelets Auto (Bld) [#/Vol] Ordered By: Augustine Freitas on 10-17-2024 Platelets (Bld) [#/Vol] Platelets [#/volume] in Blood by Automated count 150-450 [facility] Potassium [Moles/volume] in Serum or PlasmaOrdered By: Augustine Freitas on 10-17-2024 Potassium [Moles/Vol] Potassium [Moles/v olume] in Serum or Plasma 3.5-5.1 [facility] RBC Auto (Bld) [#/Vol]Ordere d By: Augustine Freitas on 10-17-2024 RBC (Bld) [#/Vol] Erythrocytes [#/volu me] in Blood by Automated count 3.90-5.60 [facility] Serum or plasma anion gap de terminationOrdered By: Augustine Freitas on 10-17-2024 Anion gap [Moles/Vol] Serum or plasma an ion gap determination 6.0-15.0 [facility] Sodium [Moles/volume] in Ser um or PlasmaOrdered By: Augustine Freitas on 10-17-2024 Sodium [Moles/Vol] Sodium [Moles/volume ] in Serum or Plasma 136-145 [facility] Urea nitrogen [Mass/volume] in Serum or PlasmaOrdered By: Augustine Freitas on 10-17-2024 Urea nitrogen [Mass/Vol] Urea nitrogen [Mass/volume] in Serum or Plasma 7-25 [facility] WBC Auto (Bld) [#/Vol]Ordere d By: Augustine Freitas on 10-17-2024 WBC (Bld) [#/Vol] Leukocytes [#/volume ] in Blood by Automated count 4.1-10.5 [facility] No Panel Informationon 10-16 Consent obtained: andre ferrer (The rationale for Mohs as well as the risks, benefits, and alternatives. The risks of infection, scarring, bleeding, prolonged wound healing, incomplete removal, allergy to anesthesia or meds, nerve injury, and recurrence were addressed.) [place] Protocol: Procedure explained and questions answered to [...] sodium bicarbonate Procedure Details: Biopsy accession number: [id number] Biopsy lab: [facility] Date of biopsy: 10/04/2024 Frozen section biopsy [...] Number of bl (more content not included)... [facility] No Panel Informationon 10-04 Type of biopsy: [...] taken Amount of lidocaine used: 0.4 cc [facility] No Panel InformationOrdered By: Karen Mckinnon on 10-04-2024 [facility] Optical coherence tomography study reporton 09-07-2024 [facility] Radiology Study observation (narrative) [facility] Basophils Auto (Bld) [#/Vol] on 08-14-2024 Basophils (Bld) [#/Vol] Automated basophil count 0.0-0.1 [facility] Basophils/100 WBC Auto (Bld) on 08-14-2024 Basophils/100 WBC (Bld) Automated basophil % 0.2-2.0 [facility] Eosinophils/100 WBC Auto (Bl d)on 08-14-2024 Eosinophils/100 WBC (Bld) Automated eosinophil % 0.9-7.0 [facility] Erythrocyte distribution wid th Auto (RBC) [Ratio]on 08-14-2024 Erythrocyte distribution width (RBC) [Ratio] Erythrocyte distribution width [Ratio] by Automated count High 11.0-15.0 [facility] Estimated glomerular filtrat ion rate (GFR) non- Americanon 08-14-2024 GFR/1.73 sq M.predicted among non-blacks MDRD (S/P/Bld) [Vol rate/Area] Estimated glomerular filtration rate (GFR) non- Low >=60 mL/min/1.7 3m 2 [facility] Globulin Calc (S) [Mass/Vol] on 08-14-2024 Globulin (S) [Mass/Vol] Serum globulin measurement by calculation (mass/volume) [facility] Glucose mean value [Mass/vol ume] in Blood Estimated from glycated hemoglobinon 08-14-2024 Average glucose Estimated from glycated hemoglobin (Bld) [Mass/Vol] Glucose mean value [Mass/volume] in Blood Estimated from glycated hemoglobin [facility] Hematocrit Auto (Bld) [Volum e fraction]on 08-14-2024 Hematocrit (Bld) [Volume fraction] Hematocrit [Volume Fraction] of Blood by Automated count 42.0-54.0 [facility] Hemoglobin [Mass/volume] in Bloodon 08-14-2024 Hemoglobin (Bld) [Mass/Vol] Hemoglobin [Mass/volume] in Blood 14.0-18.0 [facility] Laboratory - Chemistry and C hemistry - challengeon 08-14-2024 Albumin [Mass/Vol] 3.6 g/dL 3.4-5.0 [facility] ALP [Catalytic activity/Vol] 78 U/L 46-116 [facility] ALT [Catalytic activity/Vol] 25 U/L 16-63 [facility] AST [Catalytic activity/Vol] 16 U/L 15-37 [facility] Bilirubin [Mass/Vol] 0.7 mg/dL 0.2-1.0 [facility] Calcium [Mass/Vol] 8.8 mg/dL 8.5-10.1 [facility] Chloride [Moles/Vol] 104 mmol/L 98-107 [facility] CO2 [Moles/Vol] 28.7 mmol/L 21.0-32.0 [facility] Creatinine [Mass/Vol] 1.66 mg/dL High 0.70-1.30 [facility] GFR/1.73 sq M.predicted MDRD (S/P/Bld) [Vol rate/Area] 49 mL/min/{1.73_m2} Low >=60 mL/min/1.7 3m 2 [facility] Glucose [Mass/Vol] 143 mg/dL High 74-106 [facility] Potassium [Moles/Vol] 4.5 mmol/L 3.5-5.1 [facility] Protein [Mass/Vol] 6.7 g/dL 6.4-8.2 [facility] Sodium [Moles/Vol] 142 mmol/L 136-145 [facility] Urea nitrogen [Mass/Vol] 24.0 mg/dL High 7.0-18.0 [facility] Urea nitrogen/Creatinine [Mass ratio] 14.5 mg/mg [facility] Laboratory - Hematology and Cell countson 08-14-2024 HbA1c (Bld) [Mass fraction] 7.2 % High 4.5-6.2 [facility] Comment on above: ADA RECOMMENDED LIMI T 4.0 - 6.0ADA THERAPEUTIC TARGET < 7.0ACTION SUGGESTED> 7.0 Immature granulocytes/100 WBC (Bld) 0.0 % 0.0-0.5 [facility] Leukocytes [#/volume] correc iván for nucleated erythrocytes in Blood by Automated counon 08-14-2024 WBC corrected for nucl RBC Auto (Bld) [#/Vol] Leukocytes [#/volume] corrected for nucleated erythrocytes in Blood by Automated coun 4.0-11.0 [facility] Lymphocytes Auto (Bld) [#/Vo l]on 08-14-2024 Lymphocytes (Bld) [#/Vol] Lymphocytes [#/volume] in Blood by Automated count 1.2-3.8 [facility] Lymphocytes/100 WBC Auto (Bl d)on 08-14-2024 Lymphocytes/100 WBC (Bld) Lymphocytes/100 leukocytes in Blood by Automated count 20.5-60.0 [facility] MCH Auto (RBC) [Entitic mass ]on 08-14-2024 MCH (RBC) [Entitic mass] MCH [Entitic mass] by Automated count 25.9-34.0 [facility] MCHC Auto (RBC) [Mass/Vol]on 08-14-2024 MCHC (RBC) [Mass/Vol] MCHC [Mass/volume] by Automated count 29.9-35.2 [facility] MCV Auto (RBC) [Entitic vol] on 08-14-2024 MCV (RBC) [Entitic vol] MCV [Entitic volume] by Automated count 80.0-94.0 [facility] Microalbumin [Mass/volume] i n Urineon 08-14-2024 Albumin DL <= 20 mg/L (U) [Mass/Vol] Microalbumin [Mass/volume] in Urine <=30.0 [facility] Monocytes Auto (Bld) [#/Vol] on 08-14-2024 Monocytes (Bld) [#/Vol] Automated blood monocyte count 0.3-0.8 [facility] Monocytes/100 WBC Auto (Bld) on 08-14-2024 Monocytes/100 WBC (Bld) Automated monocyte % 1.7-12.0 [facility] Neutrophils Auto (Bld) [#/Vo l]on 08-14-2024 Neutrophils (Bld) [#/Vol] Neutrophils [#/volume] in Blood by Automated count 1.4-6.5 [facility] Neutrophils/100 WBC Auto (Bl d)on 08-14-2024 Neutrophils/100 WBC (Bld) Automated neutrophil % 43.0-75.0 [facility] No Panel Informationon 08-14 Eosinophils # (Auto) 0.1 10 3/uL 0.0-0.7 [facility] Immature Granulocyte # (Auto) 0.00 10 3/uL 0.00-0.03 [facility] Prostate Specific Antigen Screen 1.77 ng/mL <=4.00 [facility] Platelet mean volume Auto (B ld) [Entitic vol]on 08-14-2024 Platelet mean volume (Bld) [Entitic vol] Platelet mean volume [Entitic volume] in Blood by Automated count 9.5-13.5 [facility] Platelets Auto (Bld) [#/Vol] on 08-14-2024 Platelets (Bld) [#/Vol] Platelets [#/volume] in Blood by Automated count 150-450 [facility] RBC Auto (Bld) [#/Vol]on RBC (Bld) [#/Vol] Erythrocytes [#/volu me] in Blood by Automated count Low 4.70-6.10 [facility] Serum or plasma albumin/glob ulin mass ratioon 08-14-2024 Albumin/Globulin [Mass ratio] Serum or plasma albumin/globulin mass ratio [facility] Serum or plasma anion gap de terminationon 08-14-2024 Anion gap [Moles/Vol] Serum or plasma an ion gap determination [facility] Office Visiton 07-11-2024 Follow-up visit [id number] Amina Goncalves 1945 M Date Provider Department Center 07/11/2024 [facility] Family History Problem Relation Age of Onset Cancer Mother Heart attack Other Family Status - Relation Status Age at Mother Other Level of Service:29127 [place] OFFICE/OUTPATIENT ESTABLISHED LOW MDM 20 MIN Normal [facility] Basophils Auto (Bld) [#/Vol] on 06-27-2024 Basophils (Bld) [#/Vol] 0.0 10 3/uL 0.0-0.1 [facility] Basophils/100 WBC Auto (Bld) on 06-27-2024 Basophils/100 WBC (Bld) 0.4 % 0.2-2.0 [facility] Eosinophils/100 WBC Auto (Bl d)on 06-27-2024 Eosinophils/100 WBC (Bld) 2.0 % 0.9-7.0 [facility] Erythrocyte distribution wid th Auto (RBC) [Ratio]on 06-27-2024 Erythrocyte distribution width (RBC) [Ratio] 16.6 % High 11.0-15.0 [facility] Hematocrit Auto (Bld) [Volum e fraction]on 06-27-2024 Hematocrit (Bld) [Volume fraction] 38.5 % Low 42.0-54.0 [facility] Hemoglobin [Mass/volume] in Bloodon 06-27-2024 Hemoglobin (Bld) [Mass/Vol] 12.5 g/dL Low 14.0-18.0 [facility] Iron binding capacity [Mass/ volume] in Serum or Plasmaon 06-27-2024 Iron binding capacity [Mass/Vol] 314.0 ug/dL 250.0-450. 0 [facility] Iron saturation [Mass Fracti on] in Serum or Plasmaon 06-27-2024 Iron saturation [Mass fraction] 21.3 % [facility] Laboratory - Chemistry and C hemistry - challengeon 06-27-2024 Cobalamin (Vitamin B12) [Mass/Vol] 640 pg/mL [phone] [facility] Comment on above: Performed at: [facility] [address] [id number] Director: Erasmo Mack PhD, Phone: [phone] Ferritin [Mass/Vol] 25.0 ng/mL Low 26.0-388.0 [facility] Iron [Mass/Vol] 67.0 ug/dL 65.0-175.0 [facility] Laboratory - Hematology and Cell countson 06-27-2024 Immature granulocytes/100 WBC (Bld) 0.4 % 0.0-0.5 [facility] Leukocytes [#/volume] correc iván for nucleated erythrocytes in Blood by Automated counon 06-27-2024 WBC corrected for nucl RBC Auto (Bld) [#/Vol] 5.0 10 3/uL 4.0-11.0 [facility] Lymphocytes Auto (Bld) [#/Vo l]on 06-27-2024 Lymphocytes (Bld) [#/Vol] 1.4 10 3/uL 1.2-3.8 [facility] Lymphocytes/100 WBC Auto (Bl d)on 06-27-2024 Lymphocytes/100 WBC (Bld) 27.8 % 20.5-60.0 [facility] MCH Auto (RBC) [Entitic mass ]on 06-27-2024 MCH (RBC) [Entitic mass] 28.8 pg 25.9-34.0 [facility] MCHC Auto (RBC) [Mass/Vol]on 06-27-2024 MCHC (RBC) [Mass/Vol] 32.5 g/dL 29.9-35.2 [facility] MCV Auto (RBC) [Entitic vol] on 06-27-2024 MCV (RBC) [Entitic vol] 88.7 fL 80.0-94.0 [facility] Monocytes Auto (Bld) [#/Vol] on 06-27-2024 Monocytes (Bld) [#/Vol] 0.4 10 3/uL 0.3-0.8 [facility] Monocytes/100 WBC Auto (Bld) on 06-27-2024 Monocytes/100 WBC (Bld) 8.3 % 1.7-12.0 [facility] Neutrophils Auto (Bld) [#/Vo l]on 06-27-2024 Neutrophils (Bld) [#/Vol] 3.1 10 3/uL 1.4-6.5 [facility] Neutrophils/100 WBC Auto (Bl d)on 06-27-2024 Neutrophils/100 WBC (Bld) 61.1 % 43.0-75.0 [facility] No Panel Informationon 06-27 Eosinophils # (Auto) 0.1 10 3/uL 0.0-0.7 [facility] Folate 22.10 ng/mL 8.60-58.90 [facility] Immature Granulocyte # (Auto) 0.02 10 3/uL 0.00-0.03 [facility] Platelet mean volume Auto (B ld) [Entitic vol]on 06-27-2024 Platelet mean volume (Bld) [Entitic vol] 11.2 fL 9.5-13.5 [facility] Platelets Auto (Bld) [#/Vol] on 06-27-2024 Platelets (Bld) [#/Vol] 162 10 3/uL 150-450 [facility] RBC Auto (Bld) [#/Vol]on RBC (Bld) [#/Vol] 4.34 10 6/uL Low 4.70-6.10 [facility] No Panel Informationon 06-19 [facility] Optical coherence tomography study reporton 06-08-2024 [facility] Radiology Study observation (narrative) [facility] Basophils Auto (Bld) [#/Vol] on 04-18-2024 Basophils (Bld) [#/Vol] 0.0 10 3/uL 0.0-0.1 [facility] Basophils/100 WBC Auto (Bld) on 04-18-2024 Basophils/100 WBC (Bld) 0.5 % 0.2-2.0 [facility] Eosinophils/100 WBC Auto (Bl d)on 04-18-2024 Eosinophils/100 WBC (Bld) 4.3 % 0.9-7.0 [facility] Erythrocyte distribution wid th Auto (RBC) [Ratio]on 04-18-2024 Erythrocyte distribution width (RBC) [Ratio] 14.0 % 11.0-15.0 [facility] Hematocrit Auto (Bld) [Volum e fraction]on 04-18-2024 Hematocrit (Bld) [Volume fraction] 36.8 % Low 42.0-54.0 [facility] Hemoglobin [Mass/volume] in Bloodon 04-18-2024 Hemoglobin (Bld) [Mass/Vol] 11.6 g/dL Low 14.0-18.0 [facility] Iron binding capacity [Mass/ volume] in Serum or Plasmaon 04-18-2024 Iron binding capacity [Mass/Vol] 339.0 ug/dL 250.0-450. 0 [facility] Iron saturation [Mass Fracti on] in Serum or Plasmaon 04-18-2024 Iron saturation [Mass fraction] 11.8 % [facility] Laboratory - Chemistry and C hemistry - challengeon 04-18-2024 Cobalamin (Vitamin B12) [Mass/Vol] 594.0 pg/mL 193.0-986. 0 [facility] Ferritin [Mass/Vol] 20.0 ng/mL Low 26.0-388.0 [facility] Iron [Mass/Vol] 40.0 ug/dL Low 65.0-175.0 [facility] Laboratory - Hematology and Cell countson 04-18-2024 Immature granulocytes/100 WBC (Bld) 0.0 % 0.0-0.5 [facility] Leukocytes [#/volume] correc iván for nucleated erythrocytes in Blood by Automated counon 04-18-2024 WBC corrected for nucl RBC Auto (Bld) [#/Vol] 4.4 10 3/uL 4.0-11.0 [facility] Lymphocytes Auto (Bld) [#/Vo l]on 04-18-2024 Lymphocytes (Bld) [#/Vol] 1.5 10 3/uL 1.2-3.8 [facility] Lymphocytes/100 WBC Auto (Bl d)on 04-18-2024 Lymphocytes/100 WBC (Bld) 34.1 % 20.5-60.0 [facility] MCH Auto (RBC) [Entitic mass ]on 04-18-2024 MCH (RBC) [Entitic mass] 27.5 pg 25.9-34.0 [facility] MCHC Auto (RBC) [Mass/Vol]on 04-18-2024 MCHC (RBC) [Mass/Vol] 31.5 g/dL 29.9-35.2 [facility] MCV Auto (RBC) [Entitic vol] on 04-18-2024 MCV (RBC) [Entitic vol] 87.2 fL 80.0-94.0 [facility] Monocytes Auto (Bld) [#/Vol] on 04-18-2024 Monocytes (Bld) [#/Vol] 0.4 10 3/uL 0.3-0.8 [facility] Monocytes/100 WBC Auto (Bld) on 04-18-2024 Monocytes/100 WBC (Bld) 9.4 % 1.7-12.0 [facility] Neutrophils Auto (Bld) [#/Vo l]on 04-18-2024 Neutrophils (Bld) [#/Vol] 2.3 10 3/uL 1.4-6.5 [facility] Neutrophils/100 WBC Auto (Bl d)on 04-18-2024 Neutrophils/100 WBC (Bld) 51.7 % 43.0-75.0 [facility] No Panel Informationon 04-18 Eosinophils # (Auto) 0.2 10 3/uL 0.0-0.7 [facility] Immature Granulocyte # (Auto) 0.00 10 3/uL 0.00-0.03 [facility] Platelet mean volume Auto (B ld) [Entitic vol]on 04-18-2024 Platelet mean volume (Bld) [Entitic vol] 11.1 fL 9.5-13.5 [facility] Platelets Auto (Bld) [#/Vol] on 04-18-2024 Platelets (Bld) [#/Vol] 185 10 3/uL 150-450 [facility] RBC Auto (Bld) [#/Vol]on RBC (Bld) [#/Vol] 4.22 10 6/uL Low 4.70-6.10 [facility] Basophils Auto (Bld) [#/Vol] on 04-02-2024 Basophils (Bld) [#/Vol] 0.0 10 3/uL 0.0-0.1 [facility] Basophils/100 WBC Auto (Bld) on 04-02-2024 Basophils/100 WBC (Bld) 0.6 % 0.2-2.0 [facility] Eosinophils/100 WBC Auto (Bl d)on 04-02-2024 Eosinophils/100 WBC (Bld) 3.3 % 0.9-7.0 [facility] Erythrocyte distribution wid th Auto (RBC) [Ratio]on 04-02-2024 Erythrocyte distribution width (RBC) [Ratio] 13.9 % 11.0-15.0 [facility] Estimated glomerular filtrat ion rate (GFR) non- Americanon 04-02-2024 GFR/1.73 sq M.predicted among non-blacks MDRD (S/P/Bld) [Vol rate/Area] 49 mL/min/{1.73_m2} Low >=60 [facility] Globulin Calc (S) [Mass/Vol] on 04-02-2024 Globulin (S) [Mass/Vol] 3.0 g/dL [facility] Hematocrit Auto (Bld) [Volum e fraction]on 04-02-2024 Hematocrit (Bld) [Volume fraction] 32.6 % Low 42.0-54.0 [facility] Hemoglobin [Mass/volume] in Bloodon 04-02-2024 Hemoglobin (Bld) [Mass/Vol] 10.3 g/dL Low 14.0-18.0 [facility] Laboratory - Chemistry and C hemistry - challengeon 04-02-2024 Albumin [Mass/Vol] 2.8 g/dL Low 3.4-5.0 [facility] ALP [Catalytic activity/Vol] 76 U/L 46-116 [facility] ALT [Catalytic activity/Vol] 14 U/L Low 16-63 [facility] AST [Catalytic activity/Vol] 11 U/L Low 15-37 [facility] Bilirubin [Mass/Vol] 0.4 mg/dL 0.2-1.0 [facility] Calcium [Mass/Vol] 8.4 mg/dL Low 8.5-10.1 [facility] Chloride [Moles/Vol] 107 mmol/L 98-107 [facility] CO2 [Moles/Vol] 28.1 mmol/L 21.0-32.0 [facility] Creatinine [Mass/Vol] 1.40 mg/dL High 0.70-1.30 [facility] GFR/1.73 sq M.predicted MDRD (S/P/Bld) [Vol rate/Area] 59 mL/min/{1.73_m2} Low >=60 [facility] Glucose [Mass/Vol] 141 mg/dL High 74-106 [facility] Potassium [Moles/Vol] 4.3 mmol/L 3.5-5.1 [facility] Protein [Mass/Vol] 5.8 g/dL Low 6.4-8.2 [facility] Sodium [Moles/Vol] 142 mmol/L 136-145 [facility] Urea nitrogen [Mass/Vol] 16.0 mg/dL 7.0-18.0 [facility] Urea nitrogen/Creatinine [Mass ratio] 11.4 mg/mg [facility] Laboratory - Hematology and Cell countson 04-02-2024 Immature granulocytes/100 WBC (Bld) 0.2 % 0.0-0.5 [facility] Leukocytes [#/volume] correc iván for nucleated erythrocytes in Blood by Automated counon 04-02-2024 WBC corrected for nucl RBC Auto (Bld) [#/Vol] 5.2 10 3/uL 4.0-11.0 [facility] Lymphocytes Auto (Bld) [#/Vo l]on 04-02-2024 Lymphocytes (Bld) [#/Vol] 1.7 10 3/uL 1.2-3.8 [facility] Lymphocytes/100 WBC Auto (Bl d)on 04-02-2024 Lymphocytes/100 WBC (Bld) 32.6 % 20.5-60.0 [facility] MCH Auto (RBC) [Entitic mass ]on 04-02-2024 MCH (RBC) [Entitic mass] 27.8 pg 25.9-34.0 [facility] MCHC Auto (RBC) [Mass/Vol]on 04-02-2024 MCHC (RBC) [Mass/Vol] 31.6 g/dL 29.9-35.2 [facility] MCV Auto (RBC) [Entitic vol] on 04-02-2024 MCV (RBC) [Entitic vol] 87.9 fL 80.0-94.0 [facility] Monocytes Auto (Bld) [#/Vol] on 04-02-2024 Monocytes (Bld) [#/Vol] 0.7 10 3/uL 0.3-0.8 [facility] Monocytes/100 WBC Auto (Bld) on 04-02-2024 Monocytes/100 WBC (Bld) 12.9 % High 1.7-12.0 [facility] Neutrophils Auto (Bld) [#/Vo l]on 04-02-2024 Neutrophils (Bld) [#/Vol] 2.6 10 3/uL 1.4-6.5 [facility] Neutrophils/100 WBC Auto (Bl d)on 04-02-2024 Neutrophils/100 WBC (Bld) 50.4 % 43.0-75.0 [facility] No Panel Informationon 04-02 Eosinophils # (Auto) 0.2 10 3/uL 0.0-0.7 [facility] Immature Granulocyte # (Auto) 0.01 10 3/uL 0.00-0.03 [facility] Troponin I High Sensitivity 7.8 pg/mL 4.0-76.1 [facility] Comment on above: CUT-OFF POINTS [...] volume (Bld) [Entitic vol] 12.5 fL 9.5-13.5 [facility] Platelets Auto (Bld) [#/Vol] on 04-02-2024 Platelets (Bld) [#/Vol] 139 10 3/uL Low 150-450 [facility] RBC Auto (Bld) [#/Vol]on RBC (Bld) [#/Vol] 3.71 10 6/uL Low 4.70-6.10 [facility] Serum or plasma albumin/glob ulin mass ratioon 04-02-2024 Albumin/Globulin [Mass ratio] 0.9 {ratio} [facility] Serum or plasma anion gap de terminationon 04-02-2024 Anion gap [Moles/Vol] 11.2 mmol/L [facility] Basophils Auto (Bld) [#/Vol] on 04-01-2024 Basophils (Bld) [#/Vol] 0.0 10 3/uL 0.0-0.1 [facility] Basophils/100 WBC Auto (Bld) on 04-01-2024 Basophils/100 WBC (Bld) 0.2 % 0.2-2.0 [facility] Eosinophils/100 WBC Auto (Bl d)on 04-01-2024 Eosinophils/100 WBC (Bld) 1.8 % 0.9-7.0 [facility] Erythrocyte distribution wid th Auto (RBC) [Ratio]on 04-01-2024 Erythrocyte distribution width (RBC) [Ratio] 13.7 % 11.0-15.0 [facility] Estimated glomerular filtrat ion rate (GFR) non- Americanon 04-01-2024 GFR/1.73 sq M.predicted among non-blacks MDRD (S/P/Bld) [Vol rate/Area] 43 mL/min/{1.73_m2} Low >=60 [facility] Globulin Calc (S) [Mass/Vol] on 04-01-2024 Globulin (S) [Mass/Vol] 3.3 g/dL [facility] Hematocrit Auto (Bld) [Volum e fraction]on 04-01-2024 Hematocrit (Bld) [Volume fraction] 35.6 % Low 42.0-54.0 [facility] Hemoglobin [Mass/volume] in Bloodon 04-01-2024 Hemoglobin (Bld) [Mass/Vol] 11.1 g/dL Low 14.0-18.0 [facility] INR in Platelet poor plasma by Coagulation assayon 04-01-2024 INR Coag (PPP) [Relative time] 0.98 {INR} [facility] Comment on above: DESIRED INR:2.0-3.0 CONDITIONS NOT LISTED BELOW2.5-3.5 FOR PROSTHETIC HEART VALVE REPLACEMENT2.5-3.5 [facility] Laboratory - Chemistry and C hemistry - challengeon 04-01-2024 Albumin [Mass/Vol] 3.3 g/dL Low 3.4-5.0 [facility] ALP [Catalytic activity/Vol] 91 U/L 46-116 [facility] ALT [Catalytic activity/Vol] 19 U/L 16-63 [facility] AST [Catalytic activity/Vol] 12 U/L Low 15-37 [facility] Bilirubin [Mass/Vol] 0.4 mg/dL 0.2-1.0 [facility] Calcium [Mass/Vol] 8.5 mg/dL 8.5-10.1 [facility] Chloride [Moles/Vol] 102 mmol/L 98-107 [facility] CO2 [Moles/Vol] 26.5 mmol/L 21.0-32.0 [facility] Creatinine [Mass/Vol] 1.56 mg/dL High 0.70-1.30 [facility] GFR/1.73 sq M.predicted MDRD (S/P/Bld) [Vol rate/Area] 52 mL/min/{1.73_m2} Low >=60 [facility] Glucose [Mass/Vol] 234 mg/dL High 74-106 [facility] Natriuretic peptide B (Bld) [Mass/Vol] 284.0 pg/mL <=1800.0 [facility] Potassium [Moles/Vol] 4.2 mmol/L 3.5-5.1 [facility] Protein [Mass/Vol] 6.6 g/dL 6.4-8.2 [facility] Sodium [Moles/Vol] 138 mmol/L 136-145 [facility] Urea nitrogen [Mass/Vol] 18.0 mg/dL 7.0-18.0 [facility] Urea nitrogen/Creatinine [Mass ratio] 11.5 mg/mg [facility] Laboratory - Hematology and Cell countson 04-01-2024 Immature granulocytes/100 WBC (Bld) 0.2 % 0.0-0.5 [facility] Leukocytes [#/volume] correc iván for nucleated erythrocytes in Blood by Automated counon 04-01-2024 WBC corrected for nucl RBC Auto (Bld) [#/Vol] 6.2 10 3/uL 4.0-11.0 [facility] Lymphocytes Auto (Bld) [#/Vo l]on 04-01-2024 Lymphocytes (Bld) [#/Vol] 1.3 10 3/uL 1.2-3.8 [facility] Lymphocytes/100 WBC Auto (Bl d)on 04-01-2024 Lymphocytes/100 WBC (Bld) 20.2 % Low 20.5-60.0 [facility] MCH Auto (RBC) [Entitic mass ]on 04-01-2024 MCH (RBC) [Entitic mass] 27.5 pg 25.9-34.0 [facility] MCHC Auto (RBC) [Mass/Vol]on 04-01-2024 MCHC (RBC) [Mass/Vol] 31.2 g/dL 29.9-35.2 [facility] MCV Auto (RBC) [Entitic vol] on 04-01-2024 MCV (RBC) [Entitic vol] 88.1 fL 80.0-94.0 [facility] Monocytes Auto (Bld) [#/Vol] on 04-01-2024 Monocytes (Bld) [#/Vol] 0.6 10 3/uL 0.3-0.8 [facility] Monocytes/100 WBC Auto (Bld) on 04-01-2024 Monocytes/100 WBC (Bld) 10.2 % 1.7-12.0 [facility] Neutrophils Auto (Bld) [#/Vo l]on 04-01-2024 Neutrophils (Bld) [#/Vol] 4.2 10 3/uL 1.4-6.5 [facility] Neutrophils/100 WBC Auto (Bl d)on 04-01-2024 Neutrophils/100 WBC (Bld) 67.4 % 43.0-75.0 [facility] No Panel Informationon 04-01 Troponin I High Sensitivity 6.7 pg/mL 4.0-76.1 [facility] Comment on above: CUT-OFF POINTS [...] Eosinophils # (Auto) 0.1 10 3/uL 0.0-0.7 [facility] Immature Granulocyte # (Auto) 0.01 10 3/uL 0.00-0.03 [facility] Platelet mean volume Auto (B ld) [Entitic vol]on 04-01-2024 Platelet mean volume (Bld) [Entitic vol] 11.8 fL 9.5-13.5 [facility] Platelets Auto (Bld) [#/Vol] on 04-01-2024 Platelets (Bld) [#/Vol] 152 10 3/uL 150-450 [facility] Prothrombin time (PT)on PT Coag (PPP) [Time] 10.4 s 9.0-11.6 [facility] RBC Auto (Bld) [#/Vol]on RBC (Bld) [#/Vol] 4.04 10 6/uL Low 4.70-6.10 [facility] Serum or plasma albumin/glob ulin mass ratioon 04-01-2024 Albumin/Globulin [Mass ratio] 1.0 {ratio} [facility] Serum or plasma anion gap de terminationon 04-01-2024 Anion gap [Moles/Vol] 13.7 mmol/L [facility] Glucose mean value [Mass/vol ume] in Blood Estimated from glycated hemoglobinon 02-27-2024 Average glucose Estimated from glycated hemoglobin (Bld) [Mass/Vol] 160 mg/dL [facility] Laboratory - Hematology and Cell countson 02-27-2024 HbA1c (Bld) [Mass fraction] 7.2 % High 4.5-6.2 [facility] Comment on above: ADA RECOMMENDED LIMI T 4.0 - 6.0ADA THERAPEUTIC TARGET < 7.0ACTION SUGGESTED> 7.0 Capillary blood glucose winifred urement by glucometer (mass/volume)Ordered By: Augustine Freitas on 02-24-2024 Glucose [Mass/Vol] 124 mg/dL Normal [facility] Comment on above: Random Glucose Refer ence Range is dependent on time and content of last meal. Glucose of more than 200 mg/dL in a nonstressed, ambulatory subject supports the diagnosis of Diabetes Mellitus. Result Comment: [place] Glucose Reference Range is dependent on time and content of last meal. Glucose of more than 200 mg/dL in a nonstressed, ambulatory subject supports the diagnosis of Diabetes Mellitus. Performed By: #### G LULS #### Point of Care testing , Glucose Poct Glucometerson 0 02-24-2024 Commemt1 Glu2: Cleaned Meter Normal [facility] Comment on above: Result Comment: PERF ORMED BY: [place] [address] PATHOLOGIST [employer] RICKY STRANGE M.D. Performed By: #### G LULS #### Point of Care testing , No Panel InformationOrdered By: Augustine Freitas on 02-24-2024 Bedside Glucose Comment Glu2: cleaned meter [facility] ECG 12 lead ECGon 02-16-2024 ECG 12 lead ECG [facility] [place] [address] [place] [address] Electrocardiograph Report Signed Patient: Tito Goncalves MR#: [id number] : 1945 Acct:[id number] Age/Sex: 79 / M ADM Date: 02/16/24 Loc: Room: Type: [facility] Attending Dr: Augustine Freitas DO Ordering Provider: [...] T wave abnormality Confirmed by Viviane Herman ([id number]) on 02/17/2024 12:43:51 PM Referred By: ZENA Electronically Signed By:Viviane Herman Transcribed By: QI Signed By Viviane Herman MD [id number] Normal [facility] Basophils Auto (Bld) [#/Vol] on 01-18-2024 Basophils (Bld) [#/Vol] 0.0 10 3/uL 0.0-0.1 [facility] Basophils/100 WBC Auto (Bld) on 01-18-2024 Basophils/100 WBC (Bld) 0.4 % 0.2-2.0 [facility] Eosinophils/100 WBC Auto (Bl d)on 01-18-2024 Eosinophils/100 WBC (Bld) 2.3 % 0.9-7.0 [facility] Erythrocyte distribution wid th Auto (RBC) [Ratio]on 01-18-2024 Erythrocyte distribution width (RBC) [Ratio] 13.6 % 11.0-15.0 [facility] Estimated glomerular filtrat ion rate (GFR) non- Americanon 01-18-2024 GFR/1.73 sq M.predicted among non-blacks MDRD (S/P/Bld) [Vol rate/Area] 48 mL/min/{1.73_m2} Low >=60 [facility] Hematocrit Auto (Bld) [Volum e fraction]on 01-18-2024 Hematocrit (Bld) [Volume fraction] 37.0 % Low 42.0-54.0 [facility] Hemoglobin [Mass/volume] in Bloodon 01-18-2024 Hemoglobin (Bld) [Mass/Vol] 11.7 g/dL Low 14.0-18.0 [facility] Laboratory - Chemistry and C hemistry - challengeon 01-18-2024 Calcium [Mass/Vol] 8.6 mg/dL 8.5-10.1 [facility] Chloride [Moles/Vol] 103 mmol/L 98-107 [facility] CO2 [Moles/Vol] 30.4 mmol/L 21.0-32.0 [facility] Creatinine [Mass/Vol] 1.44 mg/dL High 0.70-1.30 [facility] GFR/1.73 sq M.predicted MDRD (S/P/Bld) [Vol rate/Area] 58 mL/min/{1.73_m2} Low >=60 [facility] Glucose [Mass/Vol] 140 mg/dL High 74-106 [facility] Potassium [Moles/Vol] 4.5 mmol/L 3.5-5.1 [facility] Sodium [Moles/Vol] 140 mmol/L 136-145 [facility] Urea nitrogen [Mass/Vol] 17.0 mg/dL 7.0-18.0 [facility] Urea nitrogen/Creatinine [Mass ratio] 11.8 mg/mg [facility] Laboratory - Hematology and Cell countson 01-18-2024 Immature granulocytes/100 WBC (Bld) 0.0 % 0.0-0.5 [facility] Leukocytes [#/volume] correc iván for nucleated erythrocytes in Blood by Automated counon 01-18-2024 WBC corrected for nucl RBC Auto (Bld) [#/Vol] 4.8 10 3/uL 4.0-11.0 [facility] Lymphocytes Auto (Bld) [#/Vo l]on 01-18-2024 Lymphocytes (Bld) [#/Vol] 1.6 10 3/uL 1.2-3.8 [facility] Lymphocytes/100 WBC Auto (Bl d)on 01-18-2024 Lymphocytes/100 WBC (Bld) 33.8 % 20.5-60.0 [facility] MCH Auto (RBC) [Entitic mass ]on 01-18-2024 MCH (RBC) [Entitic mass] 28.3 pg 25.9-34.0 [facility] MCHC Auto (RBC) [Mass/Vol]on 01-18-2024 MCHC (RBC) [Mass/Vol] 31.6 g/dL 29.9-35.2 [facility] MCV Auto (RBC) [Entitic vol] on 01-18-2024 MCV (RBC) [Entitic vol] 89.6 fL 80.0-94.0 [facility] Monocytes Auto (Bld) [#/Vol] on 01-18-2024 Monocytes (Bld) [#/Vol] 0.6 10 3/uL 0.3-0.8 [facility] Monocytes/100 WBC Auto (Bld) on 01-18-2024 Monocytes/100 WBC (Bld) 11.8 % 1.7-12.0 [facility] Neutrophils Auto (Bld) [#/Vo l]on 01-18-2024 Neutrophils (Bld) [#/Vol] 2.5 10 3/uL 1.4-6.5 [facility] Neutrophils/100 WBC Auto (Bl d)on 01-18-2024 Neutrophils/100 WBC (Bld) 51.7 % 43.0-75.0 [facility] No Panel Informationon 01-17 Eosinophils # (Auto) 0.1 10 3/uL 0.0-0.7 [facility] Immature Granulocyte # (Auto) 0.00 10 3/uL 0.00-0.03 [facility] Platelet mean volume Auto (B ld) [Entitic vol]on 01-18-2024 Platelet mean volume (Bld) [Entitic vol] 11.4 fL 9.5-13.5 [facility] Platelets Auto (Bld) [#/Vol] on 01-18-2024 Platelets (Bld) [#/Vol] 186 10 3/uL 150-450 [facility] RBC Auto (Bld) [#/Vol]on RBC (Bld) [#/Vol] 4.13 10 6/uL Low 4.70-6.10 [facility] Serum or plasma anion gap de terminationon 01-18-2024 Anion gap [Moles/Vol] 11.1 mmol/L [facility] Optical coherence tomography study reporton 10-28-2023 [facility] Radiology Study observation (narrative) [facility] Coding Summaryon 07-11-2023 Coding Summary HTMLBase 64 DnnvlpsuDIl6fOe+PGhlYWQ+PE 7HZAUvY57weONcqP6qD9QGQFgX YersSRAOBLhIKhOsagJbNH5dxD NjZXJu IC8+JD6sUCHvHtoxaLAji0S6jA X5E59vag0qSJoszHJ3NNJvFsKl xvwgc1qxqKp2TGzbFieyUvLo IGHbxX24UGX8cA09Yr96wRVsiF Odt1izlVl4QdMkTQFnFNV9jFdd LZcwl5IsHDFwN22vuHCcs0G2 DZNwuNktyJEkLhUqoQS4lW6gXM brndjnq0djetfgDcb0oj23vUMc o4V1eZN3I9QrceR1XPPdbVGd XyofyHBSeK6wiensw8lukbplGg QgXIXvEGs7IEh3NYWdpUvdFuHi LZ81TGS2IPFfklNuF1InXCZe zQxiHlT9t0R9Ct6DL0DEYtvnW6 VNTUFSWTwvdGQ+CF97hd18X4Zt LsrrGsd6EBRaMPP2xWB3eB1x NQHlSMhuv9B4pML9D3PzqqOcll 3lr7mzDMFuUBliW47msCPer8X0 FHZcuYE6VJKpsRftIeTofG66 Oyc+VRInaKoie6EuQtauu4ylv8 qxbRr7MazmWXXcdePlrGanNLI6 l4XzRx5cMTJqcGY7mNS4oU3s WsPuCqW8OTisK321TwCwqHHiNk kpZ22cJ8PamUW+VRXdXsf3XIIb xVgvDP8qB7QpRIIndlxipAXs iHyhVZ4yOOFdliezEDMwbZ8dAT AcY1c8ChFeAfV9KEokV3PyANTb syzyIi77kN6tUhRkRtN8USqv B7ByquN4RQBfuPCuDSlgVFO0R9 2tk0L9ZTAiZRQiTSA7cQK3mW1o bGlnbjogbGVmdDsgdmVydGlj QAfgKNdcI807LPQdlFtrDbQtLW luZyBEYXRlOiAgMTAvMTYvMjAy MzwvdGQ+EKMlQGH9rZspMFLq nNMtDObzJo2dcVcexDroXS1eUL WhfcdwOMHmdZ8gKIMcwQZmfYms JD6lMEDutumfh656FoBvJFJ8 DRHukJMzQ3OxiG6kBsRmQYKoIG VsM2YvcOPwPFqdU551FJygQpD9 DSWfhtCaG4TmCSUiwYloTwB4 u6N9Zi0Mc1YhjxetO4KuoIDoRp XtRynyCYl0C2QyChpvvOE+PC90 ORFxRL96YRr6IKF5xXmeYJhh SQVzR5OonY0dVxEtNIGoURFqFk c+PHRhYmxlIHdpZHRoPScxMDAl MqLbzOgrIY6hEn7mIOMpSWPg wJyaqNYyZtWet9yjCFObSLrzPV 7rpQceM3BwkXS8CTHwp0k7Ox91 I59lU7UayHQ+EOIjmOP0lDA1 fW2jNlJiUyG1HLvxR321NzQooR SpCgldu5mxo8qafKs8YvJ9RYIc vkWlxZtnSKH9o8TqJc32L31s IHdpZHRoPSIxNSUiIHZhbGlnbj 4tgG4hTr7+HMRzcND6cKN9zB0w ThInQzI0TOypM853DdTzbGWc Hesdt2eae5ykpOq2BsQdOUYtsy MjgVovSZM4i9MaRk99I8HrcXmk b4HxVwe4cg29hSOtg9P4sSZ0 H1CkNMCrdeftcNRxbHnjSO9aHF BvbzckBPItfC9rCGGoS6v9JkOp GsM4SSkhK6TzouF3KJHkeHHg FMRguPQIiK6oskjdo8cvumluIq KiPUStJIg5SMq5BSNkxVccYlFu XCL0ScR6WRR5lNRqkA1xvRiu cbsmrP2tGoz+ZHE0wFNwdZZSDD 1lOjwvdGQ+ZOWcOKZ1gHzzHIzv JSNalY3fZHKnY3b9MkBzMtI8 JOsdA2TuvgG3KDZseCEhOEFlrU TQtH0rhiqiq5kerudtRjKtVXFk PXc5HRp7XHNdfQweEuRlXZN8 BoL0LKY0gQGcxZ9mhRdkuboujT 9wOyc+ZgjiwDwmARD0NGw3K4Ns Aek9VFNboZguIG5esWRwWYcf Ap2ybQlccFyuYZ1tVAZuogtek2 32PsHin1nsYNGotQIwQChqMXF6 J74kv0I6IAWzAFPjAYH6xIF8 sF0jtCcqqsclaMGcfVygadSzsI frSBpsHWvlG943ZWUypGjvVyHv DXc5A0HiQpj7AUCpsCfsFU8b bDXtMOhlYa4caWwgrPstFN8kDA Lzubbyk898SjSfq1nnDFBzbAZb DPtjCXT1T90qz3Z3TBMuDIYj ZFJ2dDP4vM3faQpkkfcumSOrkN xrinVjsFawEGniROhiQ386GNTu wHpwJvJluKw5R1UvRur6JQLl xXreVV3nnEKaVDhtCj2ioHvwlW gyZE4wSBVupdgkn880HeZba4ta NMTuoKRdFRovYGQ4O12ec8Q6 FUSxUHPlZAL5iWL9wJ0ovPoxux ogbGVmdDsgdmVydGljYWwtYWxp W187UPKvaLpdXzAfnQjzosWe TYcgLAl9T3KiIxwxoOU+PC90YW KrDK37iCIhrFBmb9ewxLx4MwCy HBMzFXW2ySvtQCbfu9PuFWHl E21nsHMrf5I3OHXleCouiGUdWm CjsYY2wC7dAXzesjnmr4xobruh Llhic8elgu49iS85S79fAMis INFmOAUgYSIjGKZhwTcxch1zoP 9wIi8+DFXnwVR8tDJ5vN3hVOOn AcC3YOiqY473SoIdlRZfLbek f7koz7hwwNp7ZwY5OCAialVeqQ xaGVE3v3BeJp91G34rJIdtEQDz XFAnBSYmDWCgwUhcru1pcE4o Ii8+HMPtiXE8oMX7bY7yOzXcIe M0BClsL223RpJvjCQcDmtkV21i L1ZlrVP+CYIaOvc6OXFpuZpp RE7hgICmABnjJv0pOZX4XeOvFr OvGQifD2GuFXSrcujviqaukOY4 ZNWaSCObtQ07Ma9yhPqyKSPb kVTMkK6pclthq9vujhieYjCwRA FgRGy3BEv8VLSnzUeyCqDnSWR6 GoU8PFB6hVWqkY0nwFlgzgwl iL3xW5WyUEKqsxbjPx60wP7lWx SfZrC0XGisBgp+O1KGBKGuUYVH M2KHQFRZOYEZALOOPG59OM69 eSUhe3Y8vZH9F8NrTKUueioadj cuqSF8RVSdEPYqpR30cIGgDErd Ck3ts1M9x833AZKnIMLoyX81 Cb2oyOcsWZHkqMEIaY5yzvfjn1 hfhofaXaAkSNKpBZr2SUr4QIMo oBcoTwPfRZB5UrG6PHT0nOTn wS4tbQlyfgeojQ0eQqi+MDQvMj iiPOf1MquoeLN+PIYtSOM3vGnu YSbsYIWpvZ5rKBBaU1o4EsYe CeU0OJdvY7JgXSNipnudIg63vY 2yTiCoJfL7YKqyK7FfbbA3IALh fMXyTSluQGP6S12fp0F9BSFj SRCzUDN1nRO5cQ2yxZzvfjfojX HfuRqoefEqpHvxKIfnIEbcW217 GYHbwCnvQsv3BJzrWDDvLU11 ZG58mKTvo8O3eWJ6T4OyDVSdfo temywioAS8HWKrWMJvfN14iMJw GFlkJt1fn2F6j534YJMlQWYu vA55Tq6ctDyxTZLsqWECjC4hcs sev8mgcnvfFbZhXZHmBFh4ZGv7 PZTspWzoCdPmPPI5CtB0USR9 sTRhaF5ozXsmvcolyK6sSpd+TU FMRTwvdGQ+BBMzGKJ5kRgkZEpn IYFecY2rMWGbS9w1TnJfGhM5 JGikF9KzIFEkxdqtCn54lG8oOx IcOsR2RUkuZ6JholG8ANPlpBGp ROoqMXU8U73uj8Q9YSPlGMDh LHP4qVC9lP4mjGoqaafyhFScjX iiwbHozMhtCLzfKEvsD505GDQh xPpkYnEaEHEeOS6waFwusSR+ PY06iq02F8EsCepzUbs0ZBDcZU T4wSW1wC8cLYIeZQjlu6J1oQU2 R1KgftVtvo1uh1jhVHJuRPit I83qjBSlv9W7RFCkhYN2AVAyiO bqUpGqfP49Ims+JLVzvYwgr9Zo Rojxz6pco0ebyGz7XcYcLWTn enZrwFagQZB8y8FwQq20F96yJZ xjCFIdPJByPHIrKEDtyNwema9i wO3tYg4+ZNJftBQ8aWN3cS6k TsPqFjU5ADwrG985XpMiiQVqSq quf5rxi3xkhWy8GeEwQGGanuRr fNjdZAX0a2IuPt00N2XxyLof b1JePxs7us53jCFto9N0zTS8F5 AwGLJgwfqqvTEjtLzkZD9kYLKu txvvNAKxsA8zYOZjS7k2MuJj UvA6UKfpB1HjqrZ9YBQftIOaGW OyeCNHiO0dsxgrr9gupepdAsXe AXEbDIy7BAq8EYLscUzoMkGp YKE7FwY3MKH3aBCqqM4ebOpson ejiH6fVud+HVg3e6fvxJMqIB1y nIP7SF27GN69xXGrn7M6sBO4 R1IdCTSkdcjueugodGW9VZKkZJ YwiY38Gd6ozPrpPq5kNHMlBWK2 HGHkmTWkI9PktM9hMxHoOYDa SVEeJ9SacMDiNYuyL777VNfyBp M6OIGbgtNzL5VrTEJevZcxPqX9 a6J7Sa1KMB16MF15JH44lBVk u7A1cLB2H8OcWSNfwyvgwauwcP U5BQMdDGAjtH61Fp5zqOuuYi5e PQZvEYI3OZBctJMbB6FmlF7c RzVbDQHfJQSsH9HloNXpUMciW8 38UDekFhY5QCIwhsIgR2OxGTRv sXwfLpF4m5T9Hb4NJi30QO85 HU48rEOeg7P8oJK2U2HtUQZcbe nyieskhQC5PQViTHAvcV56Yv0p oWicUo5aXKIdQDZ4FPWcaCXx O5TizW9aOqXfKIPkVENyC1PnhK FaNQyaT776DCxjXdG7SWLvqbLn Y6QzNEZrhMisWwD1k9G5Ab7O HIywung1C1ChIxxugCB+PC90YW CpTS78wOMffOXtk1rfmAs0SzEb SAFnYJT1zNtcWMmht6ClLZJo Y29 (more content not included)... Normal [facility] ED Clinical Summaryon 2022 ED Clinical Summary [facility] - Emergency Department [address] [place] [address] ED Clinical Summary PERSON INFORMATION Name: TITO GONCALVES Age: 78 Years Sex: MALE : 1945 MRN: Acct#: Visit Reason: Eye Injury; Fall; FALL/LT EYE LAC Arrival: 07/05/2023 16:48:26 Discharge: 07/05/2023 18:40:00 LOS: 000 01:52 Check In: 07/05/2023 16:48:26 Checkout:07/05/2023 18:40:00 Address: [address] [facility] [address] PCP: Augustine Metz PROVIDER INFORMATION Provider Role [...] Patient/family/caregiver verbalizes understanding of instructions given Comment: [facility] ED Patient Education Noteon 07-05-2023 ED Patient Education Note Education Materials [facility] ED Patient Summaryon 023 ED Patient Summary [facility] - Emergency Department [address] [place] [address] PATIENT DISCHARGE INSTRUCTIONS Patient Information Name: TITO GONCALVES Age: 78 Years Date of : 1945 Reason For Visit: Eye Injury; Fall; FALL/LT EYE LAC Arrival Time: 07/05/2023 16:48:26 Primary Care Physician: Augustine Metz Attending Physician: Colin Song DO Comment: Visit Diagnosis: Diagnoses This Visit Eye Injury ([id number]) Fall ([id number]) The Pharmacy at [facility] is open Tuesday through Tuesday from [...] alcohol and/or drug addiction problems; contact the [facility] 18/04 Crisis Hotline -Text 4HSIM ij [id number]. If you received any narcotics, sedation, or [...] and treatment you received today in the [facility] Emergency Department were for an urgent problem and are not intended as complete care. It is important for you to follow up with a doctor, nurse practitioner, or physician?s lpn medical assistant for ongoing care. If your symptoms [...] we can reach you if necessary. [facility] Emergency Department has provided you with a complete list of medications post discharge. Please inform your informal waiter/waitress/provider of your visit and for further instruction [...] symptom (more content not included)... Normal [facility] Phone Msgon 02-01-2023 Phone Msg - [...] mailed to his address on file. Normal [facility] CBC AUTO DIFFon 2023 BASO # 0.0 103/ul Normal 0.0-0.1 [facility] Comment on above: Performed By: #### C BC #### [facility] [address] [address] [address] Arjun Menjivar Basophils/100 WBC (Bld) 0.4 % Normal 0.2-2.0 [facility] Comment on above: Performed By: #### C BC #### [facility] [address] [address] [address] Arjun Menjivar EO # 0.1 103/ul Normal 0.0-0.7 [facility] Comment on above: Performed By: #### C BC #### [facility] [address] [address] [address] Arjun Menjivar Eosinophils/100 WBC (Bld) 1.5 % Normal 0.9-7.0 [facility] Comment on above: Performed By: #### C BC #### [facility] [address] [address] [address] Arjun Menjivar Erythrocyte distribution width (RBC) [Ratio] 13.7 % Normal 11.0-15.0 [facility] Comment on above: Performed By: #### C BC #### [facility] [address] [place] [address] Dr. Arjun Menjivar Hematocrit (Bld) [Volume fraction] 41.9 % Critically low 42.0-54.0 [facility] Comment on above: Performed By: #### C BC #### [facility] [address] [address] [address] Arjun Menjivar Hemoglobin (Bld) [Mass/Vol] 13.7 g/dL Critically low 14.0-18.0 [facility] Comment on above: Performed By: #### C BC #### [facility] [address] [address] [address] Arjun Menjivar IG # 0.02 10e3/ul Normal 0.00-0.03 [facility] Comment on above: Performed By: #### C BC #### [facility] [address] [place] [address] Dr. Arjun Menjivar IG % 0.3 % Normal 0.0-0.5 [facility] Comment on above: Performed By: #### C BC #### [facility] [address] [place] [address] Dr. Arjun Menjivar LYMPH # 1.4 103/ul Normal 1.2-3.8 [facility] Comment on above: Performed By: #### C BC #### [facility] [address] [place] [address] Dr. Arjun Menjivar Lymphocytes/100 WBC (Bld) 16.9 % Critically low 20.5-60.0 [facility] Comment on above: Performed By: #### C BC #### [facility] [address] [place] [address] Dr. Arjun Menjivar MANUAL DIFF REQ NO Normal [facility] Comment on above: Performed By: #### C BC #### [facility] [address] [place] [address] Dr. Arjun Menjivar MCH (RBC) [Entitic mass] 28.8 pg Normal 25.9-34.0 [facility] Comment on above: Performed By: #### C BC #### [facility] [address] [place] [address] Dr. Arjun Menjivar MCHC (RBC) [Mass/Vol] 32.7 g/dL Normal 29.9-35.2 [facility] Comment on above: Performed By: #### C BC #### [facility] [address] [place] [address] Dr. Arjun Menjivar MCV (RBC) [Entitic vol] 88.2 fL Normal 80.0-94.0 [facility] Comment on above: Performed By: #### C BC #### [facility] [address] [place] [address] Dr. Arjun Menjivar MONO # 0.5 103/ul Normal 0.3-0.8 [facility] Comment on above: Performed By: #### C BC #### [facility] [address] [place] [address] Dr. Arjun Menjivar Monocytes/100 WBC (Bld) 5.9 % Normal 1.7-12.0 [facility] Comment on above: Performed By: #### C BC #### [facility] [address] [place] [address] Dr. Arjun Menjivar NEUT # 6.0 103/ul Normal 1.4-6.5 [facility] Comment on above: Performed By: #### C BC #### [facility] [address] [place] [address] Dr. Arjun Menjivar Neutrophils/100 WBC (Bld) 75.0 % Normal 43.0-75.0 [facility] Comment on above: Performed By: #### C BC #### [facility] [address] [place] [address] Dr. Arjun Menjivar Platelet mean volume (Bld) [Entitic vol] 11.4 fL Normal 9.5-13.5 [facility] Comment on above: Performed By: #### C BC #### [facility] [address] [place] [address] Dr. Arjun Menjivar PLT 169 103/ul Normal 150-450 [facility] Comment on above: Performed By: #### C BC #### [facility] [address] [place] [address] Dr. Arjun Menjivar RBC 4.75 106/ul Normal 4.70-6.10 [facility] Comment on above: Performed By: #### C BC #### [facility] [address] [place] [address] Dr. Arjun Menjivar WBC 8.0 103/ul Normal 4.0-11.0 [facility] Comment on above: Performed By: #### C BC #### [facility] [address] [place] [address] CSPINE WO CONon [...] by: SALINA ESPINOZA Date: 2023 16:[address] [facility] [address] HEAD WO CONon 2023 CT HEAD [...] TOSHIA ANDRES Date: 2023 21:30 Normal [facility] PROF 14(COMP METB)on 023 Albumin [Mass/Vol] 3.7 g/dL Normal 3.4-5.0 [facility] Comment on above: Performed By: #### C MP ####[facility] [address] [address]Dr. Arjun Menjivar Albumin/Globulin [Mass ratio] 1.1 {ratio} Normal [facility] Comment on above: Performed By: #### C MP ####[facility] [address] [address]DrMago Menjivar ALP [Catalytic activity/Vol] 87 U/L Normal 46-116 [facility] Comment on above: Performed By: #### C MP ####[facility] [address] [address]DrMago Menjivar ALT [Catalytic activity/Vol] 26 U/L Normal 16-63 [facility] Comment on above: Performed By: #### C MP ####[facility] [address] [address]DrMago Menjivar Anion gap [Moles/Vol] 9.2 mmol/L Normal [facility] Comment on above: Performed By: #### C MP ####[facility] [address] [address]Dr. Arjun Menjivar AST [Catalytic activity/Vol] 20 U/L Normal 15-37 [facility] Comment on above: Performed By: #### C MP ####[facility] [address] [place], [place] [address]Dr. Arjun Menjivar Bilirubin [Mass/Vol] 0.4 mg/dL Normal 0.2-1.0 [facility] Comment on above: Performed By: #### C MP ####[facility] [address] [place], [place] [address]Dr. Arjun Menjivar Calcium [Mass/Vol] 9.1 mg/dL Normal 8.5-10.1 [facility] Comment on above: Performed By: #### C MP ####[facility] [address] [place], [place] [address]Dr. Arjun Menjivar Chloride [Moles/Vol] 105 mmol/L Normal 98-107 [facility] Comment on above: Performed By: #### C MP ####[facility] [address] [place], [place] [address]Dr. Arjun Menjivar CO2 [Moles/Vol] 28.9 mmol/L Normal 21.0-32.0 [facility] Comment on above: Performed By: #### C MP ####[facility] [address] [place], [place] [address]Dr. Arjun Menjivar Creatinine [Mass/Vol] 1.23 mg/dL Normal 0.70-1.30 [facility] Comment on above: Performed By: #### C MP ####[facility] [address] [place], [place] [address]Dr. Arjun Menjivar EGFR-AF CUBAN >60 Normal >=60 [facility] Comment on above: Performed By: #### C MP ####[facility] [address] [place], [place] [address]Dr. Arjun Menjivar EGFR-NON AF CUBAN 57 mL/min/1.73m2 Critically low >=60 [facility] Comment on above: Performed By: #### C MP ####[facility] [address] [address]Dr. Arjun Menjivar Globulin (S) [Mass/Vol] 3.4 g/dL Normal [facility] Comment on above: Performed By: #### C MP ####[facility] [address] [address]Dr. Arjun Menjivar Glucose [Mass/Vol] 126 mg/dL Critically high 74-106 [facility] Comment on above: Performed By: #### C MP ####[facility] [address] [address]Dr. Arjun Menjivar Potassium [Moles/Vol] 4.1 mmol/L Normal 3.5-5.1 [facility] Comment on above: Performed By: #### C MP ####[facility] [address] [address]Dr. Arjun Menjivar Protein [Mass/Vol] 7.1 g/dL Normal 6.4-8.2 [facility] Comment on above: Performed By: #### C MP ####[facility] [address] [address]Dr. Arjun Menjivar Sodium [Moles/Vol] 139 mmol/L Normal 136-145 [facility] Comment on above: Performed By: #### C MP ####[facility] [address] [address]Dr. Arjun Menjivar Urea nitrogen [Mass/Vol] 12.0 mg/dL Normal 7.0-18.0 [facility] Comment on above: Performed By: #### C MP ####[facility] [address] [address]Dr. Arjun Menjivar Urea nitrogen/Creatinine [Mass ratio] 9.8 mg/mg Normal [facility] Comment on above: Performed By: #### C MP ####[facility] [address] [address]Dr. Arjun Otto PROTIMEon 2023 INR Coag (PPP) [Relative time] 2.90 {INR} Normal [facility] Comment on above: Performed By: #### P TT, PT ####[facility] [address] [address]Dr. Arjun Menjivar INR GUIDELINES SEE BELOW Normal [facility] Comment on above: Result Comment: PIOTR RED INR: 2.0 - 3.0 CONDITIONS NOT LISTED BELOW 2.5 - 3.5 FOR PROSTHETIC HEART VALVE REPLACEMENT 2.5 - 3.5 RECURRENT THROMBOSIS Performed By: #### P TT, PT ####[facility] [address] [address]Dr. Arjun Menjivar PT Coag (PPP) [Time] 28.9 s Critically high 9.0-11.6 [facility] Comment on above: Performed By: #### P TT, PT ####[facility] [address] [address]Dr. Arjun Menjivar PTTon 2023 aPTT Coag (Bld) [Time] 37.7 s Critically high 22.3-36. 2 [facility] Comment on above: Performed By: #### P TT, PT ####[facility] [address] [address]Dr. Arjun Menjivar XR PELVIS 1_2 VIEWSon 2022 [...] LINDA WANG Date: 2023 16:14 Normal [facility] XR ERCP 1 HOUR FLUOROon 10-27 XR ERCP 1 HOUR FLUORO Fluoroscopic maryam ery for ERCP 11/09/2022 6:30 AM BLASTING MINER History: DR IBRAHIM;OTHER REASON Tech notes: WHAT [...] by: Radha Haji MD 11/10/2022 8:01 AM BLASTING MINER Technologist: EDITA Dictated By: RADHA HAJI MD Signed By: RADHA HAJI MD Signed Out: 11/10/22 09:01:42 Normal [facility] Anesthesiaon 11-09-2022 Anesthesia Patient: YE GONCALVES [...] Postoperative hydration status: euvolemic. Notes: Normothermia. Normal [facility] Anesthesia Patient: YE GONCALVES Age: 77 [...] release 325 mg = 1 caps, ORAL, [id number] trazodone = Desyrel 50 mg, ORAL, BID [...] available Procedure history: Endoscopic Retrograde Cholangiopancreatography (ERCP). ([id number]) on 11/09/2022 at 77 Years. Endoscopic Retrograde Cholangiopancreatography (ERCP). ([id number]) on 08/14/2021 at 76 Years. Esophagogastroduodenoscopy , flexible, transoral; with endoscopic ultrasound examination limited to the esophagus, stomach or duodenum, and adjacent structures ([id number]) on 07/10/2021 at 76 Years. Social History [...] in last 48 hours) Height/Length Dosin cm (11/09/22:09:00) Weight Dosin kg (11/09/22:09:) General: Alert and oriented. Airway: Mallampati classification: II (soft palate, fauces, uvula visible). Assessment and Plan [place] [employer]esthesiologists (ASA) physical status classification: [...] recognition software. Verbal misinterpretations may occur. Normal [facility] ENDO Initial Data VS HW Prep [...] Kaylyn Bettencourt RN 11/09/2022 7:09 EST Normal [facility] ENDO Outpatient Admission Da taJamari 11-09-2022 ENDO [...] Home : daughter Amna Surgeon Speak with Supervisor [employer] : Yes Voided : No Pain Level and Site : 0 Kaylyn Bettencourt RN 11/09/2022 7:09 EST Present on Admission Medical Devices : None Medical Devices for Med Administration : None Kaylyn Bettencourt RN 11/09/2022 7:09 EST Vikas Coma Eye Opening Response Vikas : Spontaneously Best Verbal Response [place] : Oriented Best Motor Response [place] : Obeys simple commands Vikas Coma Score [...] GAVIN, Kaylyn - 11/09/2022 7:09 EST Normal [facility] Inpatient Patient Summaryon 11-09-2022 Inpatient Patient Summary [facility] Discharge Instructions [address] [place] [address] \.br\(Patient Copy)\.br\ \.br\ \.br\Name: TITO GONCALVES : 1945 \.br\Diagnosis: \.br\ \.br\Allergies: sulfa drugs; penicillins; iodine topical\.br\ \.br\Registration Date: 11/09/22\.br\.br\.br\ \.br\ Current Date Time: 11/09/2022 08:44:54 \.br\ \.br\Address: [facility] [address] [facility] [address] \.br\Phone: [phone] \.br\ \.br\Primary Care Provider: \.br\Name: AUGUSTINE METZ\.br\Phone: [phone] \.br\ \.br\Thank you for choosing [place] [...] Instructions\.br\.br\.br \With: Address: When: \.br\PUJA HOLBROOK [facility] [address] [facility] [address], [address] [place] [address]\.br\ Business (1) Within Call for Appointment \.br\.br\.br\.br\.br\P [...] ient education materials, if any, will display below\.br\[facility] ENDOSCOPY DEPARTMENT\.br\.br\FOLLOW UP CARE\.br\? For biopsy [...] tarry sto (more content not included)... Normal [facility] OR Nursing Record - Endoon 0 11-09-2022 OR Nursing Record - Endo OR Nursing Record - Endo Summary Primary Physician: PUJA HOLBROOK MD Finalized Date/Time: 11/09/22 08:27:34 Pt. Name: TITO GONCALVES Yehuda David/Sex: 1945 Male Med Rec #: [id number] Physician: Financial #: [id number] Pt. Type: A Room/Bed: / Admit/Disch: 11/09/22 06:11:45 - Institution: Case Times - Endo Entry 1 Patient In Room Time 11/09/22 07:43:00 Out Room Time 11/09/22 08:24:00 Anesthesia Facility Times Induction Time 11/09/22 07:48:00 Stop Time 11/09/22 08:15:00 [place] Protocol Yes Completed Surgery Start Time 11/09/22 [...] Solomon RN, Minnie Role Performed Surgeon Primary Volleyball Coach Primary Scrub Primary Time In 11/09/22 07:43:00 11/09/22 07:43:00 11/09/22 07:43:00 Time Out 11/09/22 08:24:00 11/09/22 08:24:00 11/09/22 08:24:00 Procedure ERCP(None) ERCP(None) ERCP(None) Last Modified By: Martha Haider RN, RN, Martha Barrera RN 11/09/22 08:21:41 11/09/22 08:21:41 11/09/22 08:21:41 Entry 4 Entry 5 Entry 6 Case Attendee Dena GAVIN, Josselin SPRINGER DO, LESLI PALMA, JYOTI Role Performed Volleyball Coach Secondary Anesthesiologist Primary Anesthesia Asst/SEED PRODUCTION FIELD SUPERVISOR Time In 11/09/22 07:43:00 11/09/22 07:43:00 11/09/22 [...] 08:23 Martha Haider RN 11/09/22 08:27 Normal [facility] Operative Reporton Operative Report Patient: YE [...] Notes: Follow-up in clinic as scheduled. Normal [facility] Comment on above: Order Comment: Ida sevilla Attachment [id number] can be viewed in source system Missing Attachment [id number] can be viewed in source system Missing Attachment [id number] can be viewed in source system Missing Attachment [id number] can be viewed in source system Missing Attachment [id number] can be viewed in source system Missing Attachment [id number] can be viewed in source system Result Comment: PACU Phase I - Endoon 2022 PACU Phase I - Endo PACU Phase I - Endo Summary Primary Physician: PUJA HOLBROOK MD Finalized Date/Time: 11/09/22 08:55:35 Pt. Name: TITO GONCALVES/Sex: 1945 Male Med Rec #: [id number] Physician: Financial #: [id number] Pt. Type: A Room/Bed: / Admit/Disch: 11/09/22 06:11:45 - Institution: PACU I Case Times - Endo Entry 1 In PACU I 11/09/22 08:25:00 Ready for Transfer 11/09/22 09:19:00 Last Modified By: Sariah Schreiber RN 11/09/22 08:55:34 Finalized By: Sariah Schreiber RN Document Signatures Signed By: Sariah Schreiber RN 11/09/22 08:55 Normal [facility] POC Glucoseon 11-09-2022 Glucose [Mass/Vol] 131 mg/dL High 72-100 [facility] Comment on above: Performed By: #### 1 [id number] ####[facility] [address] [id number] Medical Director: Diogo Carcamo MD Preop - Endoon 11-09-2022 Preop - Endo Preop - Endo Summary Primary Physician: PUJA HOLBROOK MD Finalized Date/Time: 11/09/22 07:13:53 Pt. Name: TITO GONCALVES D.O.B./Sex: 1945 Male Med Rec #: [id number] Physician: Financial #: [id number] Pt. Type: A Room/Bed: / Admit/Disch: 11/09/22 06:11:45 - Institution: Preop - Case Times - Endo Entry 1 Patient Arrival Time 11/09/22 06:31:00 Patient Ready for 11/09/22 07:11:00 Surgery Report Given to n/a Last Modified By: Kaylyn Bettencourt RN 11/09/22 07:13:51 Finalized By: Kaylyn Bettencourt RN Document Signatures Signed By: Kaylyn Bettencourt RN 11/09/22 07:13 Normal [facility] Provider Letter - Ambulatory on 11-09-2022 Provider Letter - Ambulatory AUGUSTINE METZ, [address] [place] [address] RE: TITO GONCALVES 11/09/2022 Dear AUGUSTINE METZ [...] - (11/09/2022) GI ERCP with Anesthesia Normal [facility] [place] Protocol/Pre-Proc TimeOut-Texton 11-09-2022 [place] Protocol/Pre-Proc TimeOut-Text [place] Protocol Entered On: 11/09/2022 7:13 EST Performed [...] Haider RN - 11/09/2022 7:48 EST Normal [facility] Phone Msgon 11-08-2022 Phone Msg - [...] Pt was asked to speak with his field aide'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 Normal [facility] MRI ABDOMEN WO CONon 023 MRI [...] lesions favoring benign cysts. Electronically authenticated by: ASNTOS DC Date: 2022-11-01 09:53 Normal [facility] Phone Msgon 10-28-2022 Phone Msg - From: [...] Number: H Did he say who his Specialist Physicians was? From: Caren Carvalho RN To: Blanca Bazzi; Fela Alexandre; Sent: 10/28/2022 09:50:53 EST Subject: RE: Cardiac Clearance Caller Name: TITO GONCALVES; Caller Number: H He sees Dr. Metz sent LM for pt-Per Dr. Metz, pt can be off his Coumadin 5 days prior to his procedure. Normal [facility] AMB GI Physician Progress No irma 10-26-2022 AMB GI Physician Progress Note Chief Complaint Abdominal pain History of Present Illness 77-year-old male with recurrent history of choledocholithiasis last ERCP was done a year ago in [place] Patient had admission in hospital in [place] with fever and chills Patient has had [...] Est Pt Mod MDM / 30-39 min 88866, 10/26/2022 16:13:00 EST, Abdominal pain / Pancreatic cyst MR CP, 10/26/2022, Routine, PAIN, Abdominal pain / Pancreatic cyst 2. Pancreatic cyst K86.2 Pancreatic cyst stable very low CEA levels suggestive of simple serous cyst versus inflammatory cyst. Asymptomatic Ordered: AMB Follow - Up Appt Amb, 10/26/2022 16:13:00 EST, 4 weeks AMB Office/Outpt Est Pt Mod MDM / 30-39 min [id number], 10/26/2022 16:13:00 EST, Abdominal pain / Pancreatic [...] extended release, 325 mg= 1 caps, ORAL, [id number] trazodone = Desyrel, 50 mg, ORAL, BID [...] Care Team Primary Care Physician AUGUSTINE METZ [phone] Attending Physician PUJA HOLBROOK MD [phone] . Health Maintenance Pending (in the next year) There are no current recommendations pending Satisfied (in the past 1 year) There are no satisfied recommendations within the defined date range Normal [facility] Comprehensive Intake - Texto n 10-26-2022 [...] living, hemodialysis, infusion clinic, fci, assisted living, chcf, homeless correction, etc.)? : No Lori Cintron [...] EST) Problems(Active) Abnormal LFTs (liver function tests) (OMED CT :911159860 ) Name of Problem: Abnormal LFTs (liver function tests) ; Recorder: Blanca Bazzi; Confirmation: Confirmed ; Classification: Medical ; Code: [id number] ; Contributor System: Door 6 ; Last Updated: 07/01/2021 12:43 EDT ; Life Cycle Date: 07/01/2021 ; Life Cycle Status: Active ; Vocabulary: SNOMED CT Arthritis (SNOMED CT :6113548 ) Name of Problem: Arthritis ; Recorder: Blanca Bazzi; Confirmation: Confirmed ; Classification: Medical ; Code: [id number] ; Contributor System: PowerChart ; Last Updated: 07/01/2021 12:43 EDT ; Life Cycle Date: 07/01/2021 ; Life Cycle Status: Active ; Vocabulary: SNOMED CT Choledocholithiasis (SNOMED CT :699132725 ) Name of Problem: Choledocholithiasis ; Recorder: PUJA HOLBROOK MD; Confirmation: Confirmed ; Classification: Medical ; Code: 277623812 ; Contributor System: My Artful JewelsChart ; Last Updated: 07/01/2021 13:27 EDT ; Life Cycle Date: 07/01/2021 ; Life Cycle Status: Active ; Responsible Provider: PUJA HOLBROOK MD; Vocabulary: SNOMED CT Diabetes (SNOMED CT :182111294 ) Name of Problem: Diabetes ; Recorder: Blanca Bazzi; Confirmation: Confirmed ; Classification: Medical ; Code: [id number] ; Contributor System: PowerChart ; Last Updated: 07/01/2021 12:43 EDT ; Life Cycle Date: 07/01/2021 ; Life Cycle Status: Active ; Vocabulary: SNOMED CT Gallbladder disease (SNOMED CT :536185530 ) Name of Problem: Gallbladder disease ; Recorder: Blanca Bazzi; Confirmation: Confirmed ; Classification: Medical ; Code: 408126361 ; Contributor System: PowerChart ; Last Updated: 07/01/2021 12:44 EDT ; Life Cycle Date: 07/01/2021 ; Life Cycle Status: Active ; Vocabulary: SNOMED CT GERD (gastroesophageal reflux disease) (SNOMED CT :207998532 ) Name of Problem: GERD (gastroesophageal reflux disease) ; Recorder: Blanca Bazzi; Confirmation: Confirmed ; Classification: Medical ; Code: [id number] ; Contributor System: PowerChart ; Last Updated: 07/01/2021 12:44 EDT ; Life Cycle Date: 07/01/2021 ; Life Cycle Status: Active ; Vocabulary: SNOMED CT Hypertension (SNOMED CT :5956596754 ) Name of Problem: Hypertension ; Recorder: Blanca Bazzi; Confirmation: Confirmed ; Classification: Medical ; Code: 9773731010 ; Contributor System: Door 6 ; Last Updated: 07/01/2021 12:44 EDT ; Life Cycle Date: 07/01/2021 ; Life Cycle Status: Active ; Vocabulary: SNOMED CT Irregular heart rhythm (SNOMED CT :975670340 ) Name of Problem: Irregular heart rhythm ; Recorder: Blanca Bazzi; Confirmation: Confirmed ; Classification: Medical (more content not included)... Normal [facility] Provider Letter - Ambulatory on 10-26-2022 Provider Letter - Ambulatory AUGUSTINE METZ, [address] [place] [address] RE: TITO GONCALVES 10/26/2022 Dear AUGUSTINE METZ [...] - (10/26/2022) *.AMB Office Visit Note Normal [facility] Phone Msgon 10-22-2022 Phone Msg - From: Lise Lawrence MA To: Maia GAVIN, Caren; PUJA HOLBROOK MD; Sent: 10/22/2022 09:40:42 EST Subject: symptoms/appointment Caller Name: TITO GONCALVES; Caller Number: H Tito Berg daughter, Amna Sousa [phone] called. She is asking if he can [...] other dilemma is he is leaving for [place] on 11/13 for 6 weeks. From: Caren [...] him until December. He has moved to [facility] and Tito would be considered a new patient. His daughter did not feel he was acutely ill and that he can wait for the appointment next Tuesday. Normal [facility] GLYCOHEMOGLOBIN A1Con 2022 ADA RECOMMENDATION SEE BELOW Normal [facility] Comment on above: Result Comment: ADA RECOMMENDED LIMIT 4.0 - 6.0 ADA THERAPEUTIC TARGET < 7.0 ACTION SUGGESTED > 7.0 Performed By: #### A 1C ####[facility] [address] [place] [address]DrMago Menjivar Glucose [Mass/Vol] 163 mg/dL Normal [facility] Comment on above: Performed By: #### A 1C ####[facility] [address] [place] [id number] Menjivar HbA1c (Bld) [Mass fraction] 7.3 % Critically high 4.5-6.2 [facility] Comment on above: Performed By: #### A 1C ####[facility] [address] [place] [id number] Menjivar Dermatopathologyon Dermatopathology Name: TITO GONCALVES Pathologist: KRISTEN OCONNOR MD Date of Procedure: 09/07/2022 Date Received: 09/07/2022 Date Reported 09/08/2022 Submitting Physician: MACARIO BUI MD, Location: [facility] Copy To/Referring/Attending: MD SABRA SIMS FINAL DIAGNOSIS 3 SLIDES, [facility] #[id number] (BX: 08/03/2022) A. 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 B. SKIN, RIGHT MANDAEISM, SHAVE BIOPSY: MELANOMA IN SITU, PRESENT ON [...] M.D. CANCER SUMMARY REPORT A. 3 SLIDES, [facility] #[id number] (BX: 08/03/2022): SPECIMEN Procedure: Biopsy, shave Specimen Laterality: Right TUMOR Tumor Site: Skin of other and unspecified parts of face: Right pentecostal Histologic Type: Melanoma in situ, lentigo maligna [...] ADDITIONAL FINDINGS Additional Findings: None ADDITIONAL TESTING Fixed Income Director Blocks: Normal Block: None Tumor Block: A1 Electronically Signed Out By KRISTEN OCONNOR MD/[facility] Diagnostic interpretation performed at [facility] [address] [id number], [facility] [address] Microscopic Description: A. Microscopic examination reveals nests [...] OTHER Specimens Submitted As: A: 3 SLIDES, [facility] #[id number] (BX: 08/03/2022) Gross Description: Received for consultation from [facility] are three slides labeled [id number] (BX: 08/03/2022) along with the corresponding pathology report. Slide/Block Description 3 SLIDES, [id number]. Keep Slides: N Slides Returned: N Personal Consult: N Normal [facility] Comment on above: Performed By: #### D #### Dermatopathology GLYCOHEMOGLOBIN A1Con 2021 ADA RECOMMENDATION SEE BELOW Normal [facility] Comment on above: Result Comment: ADA RECOMMENDED LIMIT 4.0 - 6.0 ADA THERAPEUTIC TARGET < 7.0 ACTION SUGGESTED > 7.0 Performed By: #### A 1C ####[facility] [address] [place] [id number]. Arjun Menjivar Glucose [Mass/Vol] 151 mg/dL Normal [facility] Comment on above: Performed By: #### A 1C ####[facility] [address] [place] [address]Dr. Arjun Menjivar HbA1c (Bld) [Mass fraction] 6.9 % Critically high 4.5-6.2 [facility] Comment on above: Performed By: #### A 1C ####[facility] [address] [place], [place] [address]Dr. Arjun Menjivar XR ESOPHAGUSon 06-28-2022 XR ESOPHAGUS [...] by: CARMEN PABLO Date: 2022-06-28 14:07 Normal [facility] XR MODIFIED BARIUM SWALLOWon 06-15-2022 XR MODIFIED [...] by: SANTOS DC Date: 2022-06-15 11:11 Normal [facility] Ambulatory Visit Summaryon 0 05-03-2022 Ambulatory Visit [...] PRN Where: [facility] [address], [facility] [place] [address]- [phone] Medications What How Much When Instructions Unchanged [...] the si (more content not included)... Normal [facility] Patient Educationon 05-03-20 Patient Education Urology [...] Follow these instructions at home: ? Take vvir-atn-ufugfls and prescription medicines only as told by [...] You d (more content not included)... Normal [facility] Urology Office/Clinic Noteon 05-03-2022 Urology Office/Clinic Note Chief Complaint 1 year with KUB HPI Staff Tito is here today for a 1 year follow up with a KUB. KUB done on 04/26/22 at [facility] impression showed no appreciable urinary [...] [facility] [address], [place] [address] [phone] Additional Instructions: PRN Patient Education Benign Prostatic [...] in lifetim (more content not included)... Normal [facility] Comment on above: Result Comment: Elec tronically Signed By: Mc ALMONTE MD\.br\Date and Time Signed: 05/03/22 09:26 EDT\.br\Electronically Co-Signed By: Jerri Lyles\.br\Date and Time Co-Signed: 05/03/22 09:24 EDT RAD - MISCon 04-28-2022 RAD - MISC [id number] Normal [facility] XR KUB 1 VIEWon 04-27-2022 XR [...] by: SANTOS DC Date: 2022-04-27 06:18 Normal [facility] GLYCOHEMOGLOBIN A1Con 2021 ADA RECOMMENDATION SEE BELOW Normal [facility] Comment on above: Result Comment: ADA RECOMMENDED LIMIT 4.0 - 6.0 ADA THERAPEUTIC TARGET < 7.0 ACTION SUGGESTED > 7.0 Performed By: #### A 1C #### [facility] [address] [place] [address] [address] Arjun Menjivar Glucose [Mass/Vol] 126 mg/dL Normal [facility] Comment on above: Performed By: #### A 1C #### [facility] [address] [place], [place] [address] Dr. Arjun Menjivar HbA1c (Bld) [Mass fraction] 6.0 % Normal 4.5-6.2 [facility] Comment on above: Performed By: #### A 1C #### [facility] [address] [place] [address] [address] Arjun Menjivar IRON AND TIBCon 04-07-2022 % SATURATION 25.4 % Normal [facility] Comment on above: Performed By: #### F ETIBC, B12FOL #### [facility] [address] [place] [address] Dr. Arjun Menjivar Iron [Mass/Vol] 62.0 ug/dL Critically low 65.0-175.0 [facility] Comment on above: Performed By: #### F ETIBC, B12FOL #### [facility] [address] [place] [address] Dr. Arjun Menjivar TIBC DIRECT 244.0 ug/dL Critically low 250.0-450. 0 [facility] Comment on above: Performed By: #### F ETIBC, B12FOL #### [facility] [address] [place] [address] Dr. Arjun Menjivar VIT B12 AND FOLATEon 022 Cobalamin (Vitamin B12) [Mass/Vol] 597.0 pg/mL Normal 193.0-986. 0 [facility] Comment on above: Performed By: #### F ETIBC, B12FOL #### [facility] [address] [place] [address] Dr. Arjun Menjivar FOLATE 21.50 ng/mL Normal 8.60-58.90 [facility] Comment on above: Performed By: #### F ETIBC, B12FOL #### [facility] [address] [place] [address] Dr. Arjun Menjivar CBCon 03-16-2022 ABSOLUTE BAS 0.0 10*3/uL Normal 0.0-0.2 [facility] Comment on above: Result Comment: Test ing performed at [place] [address] Performed By: #### R ENF, ACBC, PT #### [place] [address] ABSOLUTE EOS 0.00 10*3/uL Normal 0.0-0.7 [facility] Comment on above: Performed By: #### R ENF ACBC, PT #### [place] [address] ABSOLUTE NEUTROPHIL COUNT 8.5 10*3/uL High 1.4-6.5 [facility] Comment on above: Performed By: #### R ENF ACBC, PT #### [place] [address] Basophils/100 WBC (Bld) 0.1 % Normal 0.0-2.0 [facility] Comment on above: Performed By: #### R ENEleni ACBC, PT #### [place] [address] DTYPE AUTO DIFF Normal [facility] Comment on above: Performed By: #### R ENF ACBC, PT #### [place] [address] Eosinophils/100 WBC (Bld) 0.0 % Normal 0.0-11.0 [facility] Comment on above: Performed By: #### R ENF ACBC, PT #### [place] [address] Lymphocytes (Bld) [#/Vol] 0.60 10*3/uL Low 1.2-3.4 [facility] Comment on above: Performed By: #### R ENF ACBC, PT #### [place] [address] Lymphocytes/100 WBC (Bld) 6.4 % Low 20.0-55.0 [facility] Comment on above: Performed By: #### R ENF ACBC, PT #### Testing performed at [place] [id number] Monocytes (Bld) [#/Vol] 0.4 10*3/uL Normal 0.0-0.7 [facility] Comment on above: Performed By: #### R ENF ACBC, PT #### Testing performed at [address] [address] Monocytes/100 WBC (Bld) 4.1 % Normal 0.0-10.0 [facility] Comment on above: Performed By: #### R ENEleni ACBC, PT #### Testing performed at [address] [address] Neutrophils/100 WBC (Bld) 89.4 % High 37.0-75.0 [facility] Comment on above: Performed By: #### R ENF ACBC, PT #### Testing performed at [place] [id number] Erythrocyte distribution width (RBC) [Ratio] 17.0 % High 11.5-14.5 [facility] Comment on above: Performed By: #### R ENF ACBC, PT #### [place] [address] Hematocrit (Bld) [Volume fraction] 33.9 % Low 42.0-52.0 [facility] Comment on above: Performed By: #### R ENF ACBC, PT #### Testing performed at [place] [id number] Hemoglobin (Bld) [Mass/Vol] 11.7 g/dL Low 14.0-18.0 [facility] Comment on above: Performed By: #### R ENF ACBC, PT #### Testing performed at [place] [id number] MCH (RBC) [Entitic mass] 30.0 pg Normal 26.0-35.0 [facility] Comment on above: Performed By: #### R ENF ACBC, PT #### Testing performed at [place] [id number] MCHC (RBC) [Mass/Vol] 34.5 g/dL Normal 27.0-37.0 [facility] Comment on above: Performed By: #### R ENF ACBC, PT #### Testing performed at [place] [id number] MCV (RBC) [Entitic vol] 87.2 fL Normal 80.0-100.0 [facility] Comment on above: Performed By: #### R HUGH MAGDALENO, PT #### Testing performed at [place] [id number] Platelet mean volume (Bld) [Entitic vol] 9.2 fL Normal 7.4-11.0 [facility] Comment on above: Performed By: #### R HUGH MAGDALENO, PT #### [place] [address] Platelets (Bld) [#/Vol] 154 10*3/uL Normal 130.0-400. 0 [facility] Comment on above: Performed By: #### HUGH FARIA, PT #### [place] [address] RBC (Bld) [#/Vol] 3.89 10*6/uL Low 4.0-6.1 [facility] Comment on above: Performed By: #### HUGH FARIA, PT #### [place] [address] WBC (Bld) [#/Vol] 9.5 10*3/uL Normal 3.6-11.0 [facility] Comment on above: Performed By: #### HUGH FARIA, PT #### Testing performed at [place] [id number] CBC, EDIF, PLATELETon 2021 ABSOLUTE BASOPHIL COUNT 0.0 10*3/uL 0.0 - 0.2 10*3/uL [facility] Comment on above: Testing performed at [place] [address] Basophils/100 WBC (Bld) 0.1 % 0.0 - 2.0 % [facility] Differential cell count method Nom (Bld) AUTO DIFF % [facility] Eosinophils (Bld) [#/Vol] 0.00 10*3/uL 0.0 - 0.7 10*3/uL [facility] Eosinophils/100 WBC (Bld) 0.0 % 0.0 - 11.0 % [facility] Erythrocyte distribution width (RBC) [Ratio] 17.0 % High 11.5 - 14.5 % [facility] Hematocrit (Bld) [Volume fraction] 33.9 % Low 42.0 - 52.0 % [facility] Hemoglobin (Bld) [Mass/Vol] 11.7 g/dL Low [facility] Interpretation and review of laboratory results Abnormal [facility] Lymphocytes (Bld) [#/Vol] 0.60 10*3/uL Low 1.2 - 3.4 10*3/uL [facility] Lymphocytes/100 WBC (Bld) 6.4 % Low 20.0 - 55.0 % [facility] MCH (RBC) [Entitic mass] 30.0 pg 26.0 - 35.0 PG [facility] MCHC (RBC) [Mass/Vol] 34.5 g/dL [facility] MCV (RBC) [Entitic vol] 87.2 fL [facility] Monocytes (Bld) [#/Vol] 0.4 10*3/uL 0.0 - 0.7 10*3/uL [facility] Monocytes/100 WBC (Bld) 4.1 % 0.0 - 10.0 % [facility] Neutrophils (Bld) [#/Vol] 8.5 10*3/uL High 1.4 - 6.5 10*3/uL [facility] Neutrophils/100 WBC (Bld) 89.4 % High 37.0 - 75.0 % [facility] Platelet mean volume (Bld) [Entitic vol] 9.2 fL [facility] Platelets (Bld) [#/Vol] 154 10*3/uL 130.0 - 400.0 10*3/uL [facility] RBC (Bld) [#/Vol] 3.89 10*6/uL Low 4.0 - 6.1 10*6/uL [facility] WBC (Bld) [#/Vol] 9.5 10*3/uL 3.6 - 11.0 10*3/uL [facility] PROTIMEon 03-16-2022 INR Coag (PPP) [Relative time] 1.37 {INR} High 0.85-1.10 [facility] Comment on above: Result Comment: 2.0-3.0 THERAPEUTIC RANGE 2.5-3.5 MECHANICAL VALVE RANGE Testing performed at [place] [address] Performed By: #### R HUGH MAGDALENO, PT #### Testing performed at [facility] [address] [place] [address] PT Coag (PPP) [Time] 16.9 s High 11.8-14.4 [facility] Comment on above: Performed By: #### R HUGH MAGDALENO, PT #### Testing performed at [facility] [address] [place] [address] PROTIME-INRon 03-16-2022 INR Coag (PPP) [Relative time] 1.37 {INR} High [facility] Comment on above: 2.0-3.0 THERAPEUTIC RANGE 2.5-3.5 MECHANICAL VALVE RANGE Testing performed at [place] [address] Interpretation and review of laboratory results Abnormal [facility] PT Coag (PPP) [Time] 16.9 s High [facility] RENAL FUNCTION PANELon 03-16 Albumin [Mass/Vol] 3.3 G/dl Low 3.5 - 5.0 G/dl [facility] Calcium [Mass/Vol] 7.9 mg/dL Low [facility] Chloride [Moles/Vol] 106 mmol/L [facility] Comment on above: Please note: Triglyc eride levels of 600mg/dL or higher may positively bias chloride results by approximately 2.1 mmol CO2 [Moles/Vol] 23 mmol/L [facility] Creatinine [Mass/Vol] 1.20 mg/dL [facility] GFR COMMENT Average GFR for 70+ years old = 75. [facility] Comment on above: Chronic Kidney disea se, GFR = <60. Kidney failure, GFR = <15. The GFR estimate is not adjusted for extreme body surface area or acute process, nor has it been validated for women or ethnic groups other than and . Testing performed at [place] [address] GFR/1.73 sq M.predicted among blacks MDRD (S/P/Bld) [Vol rate/Area] 76 mL/min/{1.73_m2} ml/min/1.7 3sq.m [facility] GFR/1.73 sq M.predicted among non-blacks MDRD (S/P/Bld) [Vol rate/Area] 63 mL/min/{1.73_m2} ml/min/1.7 3sq.m [facility] Glucose post fast [Mass/Vol] 230 mg/dL High [facility] Comment on above: NORMAL <100 mg/dL PREDIABETES 101-126 mg/dL DIABETES 126 mg/dL or higher Interpretation and review of laboratory results Abnormal [facility] Phosphate [Mass/Vol] 2.9 mg/dL [facility] Potassium [Moles/Vol] 4.5 mmol/L [facility] Sodium [Moles/Vol] 136 mmol/L Low [facility] Urea nitrogen [Mass/Vol] 22 mg/dL High [facility] RENAL PANEL,FASTINGon 03-16- 2021 ALBUMIN 3.3 G/dl Low 3.5-5.0 [facility] Comment on above: Performed By: #### R HUGH MAGDALENO, PT #### [place] [address] Calcium [Mass/Vol] 7.9 mg/dL Low 8.4-10.2 [facility] Comment on above: Performed By: #### R HUGH MAGDALENO, PT #### Testing performed at [address] [address] Chloride [Moles/Vol] 106 mmol/L Normal 98-107 [facility] Comment on above: Result Comment: Alla noland note: Triglyceride levels of 600mg/dL or higher may positively bias chloride results by approximately 2.1 mmol Performed By: #### R RASTA ACBC, PT #### Testing performed at [address] [address] CO2 [Moles/Vol] 23 mmol/L Normal 22-30 [facility] Comment on above: Performed By: #### R RASTA ACBC, PT #### Testing performed at [address] [address] Creatinine [Mass/Vol] 1.20 mg/dL Normal 0.7-1.2 [facility] Comment on above: Performed By: #### HUGH FARIA, PT #### [place] [address] EST. GFR, 76 ml/min/1.73sq.m [facility] Comment on above: Performed By: #### HUGH FARIA, PT #### [place] [address] EST. GFR,Non 63 ml/min/1.73sq.m [facility] Comment on above: Performed By: #### HUGH FARIA, PT #### [place] [address] GFR Information Average GFR for 70+ years old = 75. Normal [facility] Comment on above: Result Comment: [facility] david Kidney disease, GFR = <60. Kidney failure, GFR = <15. The GFR estimate is not adjusted for extreme body surface area or acute process, nor has it been validated for women or ethnic groups other than and . Testing performed at [place] [address] Performed By: #### HUGH FARIA, PT #### [place] [address] Glucose [Mass/Vol] 230 mg/dL High 70-100 [facility] Comment on above: Result Comment: NORMAL <100 mg/dL PREDIABETES 101-126 mg/dL DIABETES 126 mg/dL or higher Performed By: #### HUGH FARIA, PT #### [place] [address] PHOSPHOROUS 2.9 MG/DL Normal 2.5-4.5 [facility] Comment on above: Performed By: #### HUGH FARIA, PT #### [place] [address] Potassium [Moles/Vol] 4.5 mmol/L Normal 3.5-5.1 [facility] Comment on above: Performed By: #### R HUGH MAGDALENO, PT #### [place] [address] Sodium [Moles/Vol] 136 mmol/L Low 137-145 [facility] Comment on above: Performed By: #### R HUGH MAGDALENO, PT #### [place] [address] Urea nitrogen [Mass/Vol] 22 mg/dL High - [facility] Comment on above: Performed By: #### R HUGH MAGDALENO, PT #### [place] [address] GLUCOSE (POC DEVICE)on 03-15 GLUCOSE, POINT OF CARE [address] [facility] Interpretation and review of laboratory results Abnormal [facility] Operator [id number] [facility] Comment on above: Testing performed at [address] MRSA SCREENon 03-15-2022 MRSA DNA HERIBERTO+probe Ql (Unsp spec) Not detected Normal NOT DETECTED [facility] Comment on above: Performed By: #### M RSAST #### [place] [address] STAPH AUREUS SCREEN Not detected Normal NOT DETECTED [facility] Comment on above: Result Comment: Test ing performed at [place] [address] Performed By: #### M RSAST #### [place] [address] NOVEL CORONAVIRUSon 03-15-20 22 NARRATIVE This test was perfor med using isothermal HERIBERTO and has been approved as Emergency Use Authorization (EUA) for the qualitative detection dxZIUD-SpU-9 nucleic acid. Normal [facility] Comment on above: Result Comment: Test ing performed at [place] [address] Performed By: #### C OVID #### [place] [address] SARS-CoV-2 (COVID-19) RNA HERIBERTO+probe Ql (Unsp spec) Not detected Normal NOT DETECTED [facility] Comment on above: [...] #### C OVID #### [place] [address] NOVEL CORONAVIRUS LAB 1 - NA SOPHARYNGEALon 03-15-2022 NARRATIVE -1 This test was perfor med using isothermal HERIBERTO and has been approved as Emergency Use Authorization (EUA) for the qualitative detection wnKMFY-UsO-9 nucleic acid. [facility] Comment on above: Testing performed at [place] [address] SARS-CoV-2 (COVID-19) RNA HERIBERTO+probe Ql (Unsp spec) Not detected NOT DETECTED [facility] Comment on above: Negative results do [...] patient is critically ill or clinically deteriorating. [facility] POCT GLUCOSEon 03-15-2022 Glucose [Mass/Vol] 118 mg/dL High 70-100 [facility] Comment on above: Performed By: #### P OCGLU #### [place] [address] PRESENTATION DESIGNER [id number] Normal [facility] Comment on above: Result Comment: Test ing performed at [place] [address] Performed By: #### P OCGLU #### [place] [address] PROTIMEon 03-15-2022 INR Coag (PPP) [Relative time] 1.36 {INR} High 0.85-1.10 [facility] Comment on above: Result Comment: 2.0-3.0 THERAPEUTIC RANGE 2.5-3.5 MECHANICAL VALVE RANGE Testing performed at [place] [address] Performed By: #### P T #### [place] [address] PT Coag (PPP) [Time] 16.8 s High 11.8-14.4 [facility] Comment on above: Performed By: #### P T #### [place] [address] PROTIME-INRon 03-15-2022 INR Coag (PPP) [Relative time] 1.36 {INR} High [facility] Comment on above: 2.0-3.0 THERAPEUTIC RANGE 2.5-3.5 MECHANICAL VALVE RANGE Testing performed at [place] [address] Interpretation and review of laboratory results Abnormal [facility] PT Coag (PPP) [Time] 16.8 s High [facility] PTTon 03-15-2022 aPTT Coag (Bld) [Time] 28.7 s Normal 22.4-34.7 [facility] Comment on above: Result Comment: CARDIAC AND PE/DVT THERAPUTIC RANGE 69-97 SEC VASCULAR/THREATENED LIMB THERAPUTIC RANGE 80-112 SEC Testing performed at [place] [address] Performed By: #### P TT #### Testing [place] [address] aPTT Coag (Bld) [Time] 28.7 s [facility] Comment on above: CARDIAC AND PE/DVT THERAPUTIC RANGE 69-97 SEC VASCULAR/THREATENED LIMB THERAPUTIC RANGE 80-112 SEC Testing performed at [address] SCREEN: MRSA ONLY, NARES (IS OLATION SCREEN)on 03-15-2022 MRSA isol Org specific cx Ql (Nose) Not detected NOT DETECTED [facility] STAPHYOCOCCUS AUREUS BY PCR Not detected NOT DETECTED [facility] Comment on above: Testing performed at [address] TYPE AND SCREEN CROSSMATCH C ONVERTIBLEon 03-15-2022 TYPE AND SCREEN CROSSMATCH CONVERTIBLE WORKUP EXPIRES 03/18/2022,2359 ABO/RH(D) A POSITIVE ANTIBODY SCREEN NEGATIVE ARM BAND NUMBER [id number] Testing performed at [place] [address] Normal [facility] Comment on above: Performed By: #### T SCC #### Testing [place] [address] TYPE AND SCREEN - POSSIBLE T RANSFUSIONon 03-15-2022 ABO and Rh group Nom (Bld ) Positive [facility] ARM BAND NUMBER [id number] [facility] ARM BAND NUMBER Testing performed at [address] System Blood group antibody screen Ql Negative [facility] EXPIRATION DATE 03/18/2022,2359 [facility] XR KNEE RIGHT 2 VIEWSon 02-25 XR KNEE RIGHT 2 VIEWS EXAM: XR KNEE RIGH T 2 VIEWS HISTORY: COMPARISON: FINDINGS: Joint replacement is seen with overall preservation of normal alignment. No abnormal lucency is seen around the hardware. IMPRESSION: Joint replacement without hardware complication Normal [facility] XR Knee - right 2 [...] IMPRESSION IMPRESSION: Joint replacement without hardware complication [facility] Radiology Study observation (narrative) [facility] XR Knee - right 2 ViewsOrder ed By: Abel Resendiz on 03-15-2022 [facility] Work Phone: Operative Reporton 9 Operative Report MR#: [id number] [facility] Pt. Name: Tito Goncalves [...] form. The patient was brought to the labeling associate and a transesophageal echocardiogram was performed under [...] Flores MD Date Trans: 06/14/2019 12:23 A/asad [id number] cc: Augustine Metz D.O. [address] [place] [id number] Ryan Cardenas M.D. [address] [place] [id number] [place] [facility] Repor [...] questions or concerns in the meantime. Normal [facility] Vital Signs Date Time Vital Sign Value Performing Clinician Facility 07-12-2025 10:16 Body height 172.72 cm [employer] DO Work Phone: [facility] 07-12-2025 [id number] Body mass index (BMI) [Ratio] 35.9 kg/m2 [employer] DO Work Phone: [facility] 07-12-2025 10:16 Body weight 107.1 kg [employer] DO Work Phone: [facility] 07-12-2025 [id number] Diastolic blood pressure 77 mm[Hg] [employer] DO Work Phone: [facility] 07-12-2025 10:[id number] Heart rate 58 /min [employer] DO Work Phone: [facility] 07-12-2025 10:16-0400 Respiratory rate 12 /min Augustine Ball DO Work Phone: [facility] 07-12-2025 10:16-0400 Systolic blood pressure 147 mm[Hg] Augustine Ball DO Work Phone: [facility] 04-02-2025 10:36-0400 Body height 172.72 cm Augustine Ball DO Work Phone: [facility] 04-02-2025 10:36-0400 Body mass index (BMI) [Ratio] 36 kg/m2 Augustine Ball DO Work Phone: [facility] 04-02-2025 10:36-0400 Body weight 107.55 kg Augustine Ball DO Work Phone: [facility] 04-02-2025 10:36-0400 Diastolic blood pressure 59 mm[Hg] Augustine Ball DO Work Phone: [facility] 04-02-2025 10:36-0400 Heart rate 59 /min Augustine Ball DO Work Phone: [facility] 04-02-2025 10:36-0400 Respiratory rate 12 /min Augustine Ball DO Work Phone: [facility] 04-02-2025 10:36-0400 Systolic blood pressure 106 mm[Hg] Augustine Ball DO Work Phone: [facility] 02-13-2025 11:42-0400 Body height 172.72 cm Augustine Ball DO Work Phone: [facility] 02-13-2025 11:42-0400 Body mass index (BMI) [Ratio] 37.4 kg/m2 Augustine Ball DO Work Phone: [facility] 02-13-2025 11:42-0400 Body weight 111.69 kg Augustine Ball DO Work Phone: [facility] 02-13-2025 11:42-0400 Diastolic blood pressure 77 mm[Hg] Augustine Ball DO Work Phone: [facility] 02-13-2025 11:42-0400 Heart rate 51 /min Augustine Ball DO Work Phone: [facility] 02-13-2025 11:42-0400 Respiratory rate 12 /min Augustine Ball DO Work Phone: [facility] 02-13-2025 11:42-0400 Systolic blood pressure 146 mm[Hg] Augustine Ball DO Work Phone: [facility] 01-09-2025 09:57-0400 Body height 172.72 cm Augustine Ball DO Work Phone: [facility] 01-09-2025 09:57-0400 Body mass index (BMI) [Ratio] 37.7 kg/m2 Augustine Ball DO Work Phone: [facility] 01-09-2025 09:57-0400 Body weight 112.6 kg Augustine Ball DO Work Phone: [facility] 01-09-2025 09:57-0400 Diastolic blood pressure 85 mm[Hg] Augustine Ball DO Work Phone: [facility] 01-09-2025 09:57-0400 Heart rate 58 /min Augustine Ball DO Work Phone: [facility] 01-09-2025 09:57-0400 Respiratory rate 12 /min Augustine Ball DO Work Phone: [facility] 01-09-2025 09:57-0400 Systolic blood pressure 135 mm[Hg] Augustine Ball DO Work Phone: [facility] 01-01-2025 10:01-0400 Body height 182.9 cm Augustine Murcek DO Work Phone: [facility] 01-01-2025 10:01-0400 Body mass index (BMI) [Ratio] 33.91 kg/m2 Augustine Murcek DO Work Phone: [facility] 01-01-2025 10:01-0400 Body weight 113.4 kg Augustine Murcek DO Work Phone: [facility] 10-30-2024 09:49-0500 Body height 182.9 cm Augustine Murcek DO Work Phone: [facility] 10-30-2024 09:49-0500 Body mass index (BMI) [Ratio] 33.91 kg/m2 Augustine Murcek DO Work Phone: [facility] 10-30-2024 09:49-0500 Body weight 113.4 kg Augustine Murcek DO Work Phone: [facility] 10-22-2024 11:30-0500 Diastolic blood pressure 66 mm[Hg] Augustine Ball DO Work Phone: [facility] 10-22-2024 11:30-0500 Heart rate 52 /min Augustine Ball DO Work Phone: [facility] 10-22-2024 11:30-0500 Respiratory rate 14 /min Augustine Ball DO Work Phone: [facility] 10-22-2024 11:30-0500 SaO2% (BldA) [Mass fraction] 94 % Augustine Ball DO Work Phone: [facility] 10-22-2024 11:30-0500 Systolic blood pressure 119 mm[Hg] Augustine Ball DO Work Phone: [facility] 10-22-2024 10:55-0500 Inhaled oxygen flow rate 0 L/min Augustine Ball DO Work Phone: [facility] 10-22-2024 10:25-0500 Body temperature 97.5 [degF] Augustine Ball DO Work Phone: [facility] 10-22-2024 07:25-0500 Body height 182.88 cm Augustine Ball DO Work Phone: [facility] 10-22-2024 07:25-0500 Body weight 111.4 kg Augsutine Ball DO Work Phone: [facility] 10-17-2024 13:34-0500 Body height 182.9 cm Augustine Murcek DO Work Phone: [facility] 10-17-2024 13:34-0500 Body mass index (BMI) [Ratio] 33.91 kg/m2 Augustine Freitas DO Work Phone: [facility] 10-17-2024 13:34-0500 Body weight 113.4 kg Augustine Freitas DO Work Phone: [facility] 10-16-2024 12:55-0500 Diastolic blood pressure 64 mm[Hg] Christin Bolton MD Work Phone: [facility] 10-16-2024 12:55-0500 Systolic blood pressure 140 mm[Hg] Christin Bolton MD Work Phone: [facility] 10-10-2024 08:38-0500 Body height 172.72 cm [facility] 10-10-2024 08:38-0500 Body mass index (BMI) [Ratio] 37.3 kg/m2 [facility] 10-10-2024 08:38-0500 Body weight 111.18 kg [facility] 10-10-2024 08:38-0500 Diastolic blood pressure 70 mm[Hg] [facility] 10-10-2024 08:38-0500 Heart rate 62 /min [facility] 10-10-2024 08:38-0500 Respiratory rate 12 /min [facility] 10-10-2024 08:38-0500 Systolic blood pressure 127 mm[Hg] [facility] 10-03-2024 08:09-0500 Body height 182.9 cm Kingston Anat DO Work Phone: [facility] 10-03-2024 08:09-0500 Body mass index (BMI) [Ratio] 34.23 kg/m2 Kingston Anat DO Work Phone: [facility] 10-03-2024 08:09-0500 Body weight 114.49 kg Kingston Anat DO Work Phone: [facility] 10-03-2024 08:09-0500 Diastolic blood pressure 82 mm[Hg] Kingston Anat DO Work Phone: [facility] 10-03-2024 08:09-0500 Heart rate 62 /min Kingston Anat DO Work Phone: [facility] 10-03-2024 08:09-0500 SaO2% (BldA) [Mass fraction] 95 % Kingston Anat DO Work Phone: [facility] 10-03-2024 08:09-0500 Systolic blood pressure 132 mm[Hg] Kingston Anat DO Work Phone: [facility] 08-21-2024 09:22-0500 Body height 172.72 cm [facility] 08-21-2024 09:22-0500 Body mass index (BMI) [Ratio] 37.5 kg/m2 [facility] 08-21-2024 09:22-0500 Body weight 112.15 kg [facility] 08-21-2024 09:22-0500 Diastolic blood pressure 70 mm[Hg] [facility] 08-21-2024 09:22-0500 Heart rate 62 /min [facility] 08-21-2024 09:22-0500 Respiratory rate 12 /min [facility] 08-21-2024 09:22-0500 Systolic blood pressure 123 mm[Hg] [facility] 07-09-2024 08:50-0400 Body height 172.72 cm [facility] 07-09-2024 08:50-0400 Body mass index (BMI) [Ratio] 37.1 kg/m2 [facility] 07-09-2024 08:50-0400 Body weight 110.78 kg [facility] 07-09-2024 08:50-0400 Diastolic blood pressure 79 mm[Hg] [facility] 07-09-2024 08:50-0400 Heart rate 65 /min [facility] 07-09-2024 08:50-0400 Respiratory rate 12 /min [facility] 07-09-2024 08:50-0400 Systolic blood pressure 151 mm[Hg] [facility] 06-27-2024 08:54-0400 Body height 182.9 cm Simran Parikhr PASSEMENTERIE WORKER Work Phone: [facility] 06-27-2024 08:54-0400 Body mass index (BMI) [Ratio] 33.23 kg/m2 Simran Millardmor [employer]SEMENTERIE WORKER Work Phone: [facility] 06-27-2024 08:54-0400 Body weight 111.13 kg Simran Millardmor [employer]SEMENT[employer]IE WORKER Work Phone: [facility] 06-27-2024 08:54-0400 Diastolic blood pressure 70 mm[Hg] Simran Millardmor [employer]SEMENT[employer]IE WORKER Work Phone: [facility] 06-27-2024 08:54-0400 Heart rate 56 /min Simran Parikhr [employer]SEMENTERIE WORKER Work Phone: [facility] 06-27-2024 08:54-0400 SaO2% (BldA) [Mass fraction] 92 % Simran Parikhr PASSEMENTERIE WORKER Work Phone: [facility] 06-27-2024 08:54-0400 Systolic blood pressure 136 mm[Hg] Simran Parikhr PASSEMENTERIE WORKER Work Phone: [facility] 06-04-2024 11:14-0400 Body height 172.72 cm [facility] 06-04-2024 11:14-0400 Body mass index (BMI) [Ratio] 37.1 kg/m2 [facility] 06-04-2024 11:14-0400 Body weight 110.78 kg [facility] 06-04-2024 11:14-0400 Diastolic blood pressure 70 mm[Hg] [facility] 06-04-2024 11:14-0400 Heart rate 68 /min [facility] 06-04-2024 11:14-0400 Respiratory rate 18 /min [facility] 06-04-2024 11:14-0400 SaO2% (BldA) [Mass fraction] 99 % [facility] 06-04-2024 11:14-0400 Systolic blood pressure 130 mm[Hg] [facility] 04-04-2024 11:19-0400 Body height 172.72 cm DO Augustine Ball Work Phone: [facility] 04-04-2024 11:190400 Body mass index (BMI) [Ratio] 36.6 kg/m2 DO Augustine Ball Work Phone: [facility] 04-04-2024 11:19-0400 Body weight 109.37 kg DO Augustine Ball Work Phone: [facility] 04-04-2024 11:19-0400 Diastolic blood pressure 77 mm[Hg] DO Augustine Ball Work Phone: [facility] 04-04-2024 11:19-0400 Heart rate 55 /min DO Augustine Ball Work Phone: [facility] 04-04-2024 11:19-0400 Respiratory rate 12 /min DO Augustine Ball Work Phone: [facility] 04-04-2024 11:19-0400 Systolic blood pressure 151 mm[Hg] DO Augustine Ball Work Phone: [facility] 02-27-2024 09:21-0400 Body height 172.72 cm DO Augustine Ball Work Phone: [facility] 02-27-2024 09:21-0400 Body mass index (BMI) [Ratio] 36.7 kg/m2 DO Augustine Ball Work Phone: [facility] 02-27-2024 09:21-0400 Body weight 109.48 kg DO Augustine Ball Work Phone: [facility] 02-27-2024 09:21-0400 Diastolic blood pressure 72 mm[Hg] DO Augustine Ball Work Phone: [facility] 02-27-2024 09:21-0400 Heart rate 60 /min DO Augustine Ball Work Phone: [facility] 02-27-2024 09:21-0400 Respiratory rate 12 /min DO Augustine Ball Work Phone: [facility] 02-27-2024 09:21-0400 Systolic blood pressure 152 mm[Hg] DO Augustine Ball Work Phone: [facility] 02-24-2024 17:02-0400 Diastolic blood pressure 70 mm[Hg] DO Augustine Ball Work Phone: [facility] 02-24-2024 17:02-0400 Heart rate 55 /min DO Augustine Ball Work Phone: [facility] 02-24-2024 17:02-0400 Respiratory rate 16 /min DO Augustine Ball Work Phone: [facility] 02-24-2024 17:02-0400 SaO2% (BldA) [Mass fraction] 97 % DO Augustine Ball Work Phone: [facility] 02-24-2024 17:02-0400 Systolic blood pressure 132 mm[Hg] DO Augustine Ball Work Phone: [facility] 02-24-2024 16:20-0400 Body temperature 98 [degF] DO Augustine Ball Work Phone: [facility] 02-24-2024 15:55-0400 Inhaled oxygen flow rate 8 L/min DO Augustine Ball Work Phone: [facility] 02-24-2024 15:38-0400 Body height 182.88 cm DO Augustine Ball Work Phone: [facility] 02-24-2024 15:38-0400 Body mass index (BMI) [Ratio] 32.5 kg/m2 DO Augustine Ball Work Phone: [facility] 02-24-2024 15:38-0400 Body weight 109 kg DO Augustine Ball Work Phone: [facility] 01-31-2024 15:34-0400 Body height 181.61 cm [facility] 01-31-2024 15:34-0400 Body mass index (BMI) [Ratio] 34.5 kg/m2 [facility] 01-31-2024 15:34-0400 Body weight 114.07 kg [facility] 01-31-2024 15:34-0400 Diastolic blood pressure 79 mm[Hg] [facility] 01-31-2024 15:34-0400 Heart rate 53 /min [facility] 01-31-2024 15:34-0400 Respiratory rate 12 /min [facility] 01-31-2024 15:34-0400 Systolic blood pressure 130 mm[Hg] [facility] 10-31-2023 10:30-0500 Body height Augustine Ball Other [facility] [employer] Other 10-31-2023 10:30-0500 Body mass index (BMI) [Ratio] 33.47 kg/m2 Augustine Ball Other [facility] Other 10-31-2023 10:30-0500 Body weight 110.41 kg Augustine Ball Other [facility] Other 10-31-2023 10:30-0500 Diastolic blood pressure 68 mm[Hg] Augustine Ball Other [facility] Other 10-31-2023 10:30-0500 Respiratory rate 12 /min Augustine Ball Other [facility] Other 10-31-2023 10:30-0500 Systolic blood pressure 122 mm[Hg] Augustine Ball Other [facility] Other 03-16-2023 11:19-0400 Body height 182.9 cm Azul Rachel 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 Work Phone: [employer] [facility] 03-16-2023 11:19-0400 Body mass index (BMI) [Ratio] 33.23 kg/m2 Azul Virginie 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 Work Phone: [employer] [facility] 03-16-2023 11:19-0400 Body temperature 97.2 [degF] Azul Virginie 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 Work Phone: [employer] [facility] 03-16-2023 11:19-0400 Body weight 111.13 kg Azul Rachel 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 Work Phone: [employer] 01-05-2023 12:00-0400 Body height Augustine Ball Other [facility] Other 01-05-2023 12:00-0400 Body mass index (BMI) [Ratio] 33.36 kg/m2 Augustine Ball Other [facility] Other 01-05-2023 12:00-0400 Body weight 110.04 kg Augustine Ball Other [facility] Other 01-05-2023 12:00-0400 Diastolic blood pressure 70 mm[Hg] Augustine Ball Other [facility] Other 01-05-2023 12:00-0400 Respiratory rate 12 /min Augustine Ball Other [facility] Other 01-05-2023 12:00-0400 Systolic blood pressure 118 mm[Hg] Augustine Ball Other [facility] Other 10-04-2022 12:00-0500 Body height Augustine Ball Other [facility] Other 10-04-2022 12:00-0500 Body mass index (BMI) [Ratio] 33.44 kg/m2 Augustine Ball Other [facility] Other 10-04-2022 12:00-0500 Body weight 110.32 kg Augustine Ball Other [facility] Other 10-04-2022 12:00-0500 Diastolic blood pressure 78 mm[Hg] Augustine Ball Other [facility] Other 10-04-2022 12:00-0500 Respiratory rate 12 /min Augustine Ball Other [facility] Other 10-04-2022 12:00-0500 Systolic blood pressure 128 mm[Hg] Augustine Ball Other [facility] Other 10-01-2022 08:30-0500 Diastolic blood pressure 77 mm[Hg] [facility] 10-01-2022 08:30-0500 Systolic blood pressure 132 mm[Hg] [facility] 07-08-2022 11:47-0400 Body height 182.9 cm Pastor Bedoya MD Work Phone: [facility] [employer] [facility] 07-08-2022 11:47-0400 Body mass index (BMI) [Ratio] 33.23 kg/m2 Pastor Bedoya MD Work Phone: [employer] [facility] 07-08-2022 11:47-0400 Body weight 111.13 kg Pastor Bedoya MD Work Phone: [employer] [facility] 05-03-2022 08:48-0400 Blood Pressure Location [place] [facility] 05-03-2022 08:48-0400 Diastolic blood pressure 67 mm[Hg] [place] 05-03-2022 08:48-0400 Heart rate 70 /min [facility] [place] 05-03-2022 08:48-0400 Respiratory rate 16 /min [facility] [place] 05-03-2022 08:48-0400 Systolic blood pressure 120 mm[Hg] [facility] 04-08-2022 09:49-0400 Body height 182.9 cm Azul Rachel 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 Work Phone: [employer] 04-08-2022 09:49-0400 Body mass index (BMI) [Ratio] 33.23 kg/m2 Azul Rachel 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 Work Phone: [employer] 04-08-2022 09:49-0400 Body temperature 96.91 [degF] Azul Rachel 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 Work Phone: [employer] 04-08-2022 09:49-0400 Body weight 111.13 kg Azul Rachel 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 Work Phone: [employer] [facility] 03-16-2022 11:00-0400 Body temperature 97.7 [degF] Pastor Bedoya MD Work Phone: [employer] 03-16-2022 11:00-0400 Diastolic blood pressure 70 mm[Hg] Pastor Bedoya MD Work Phone: [employer] 03-16-2022 11:00-0400 Heart rate 77 /min Pastor Bedoya MD Work Phone: [employer] 03-16-2022 11:00-0400 Respiratory rate 14 /min Pastor Bedoya MD Work Phone: [employer] 03-16-2022 11:00-0400 SaO2% (BldA) [Mass fraction] 96 % Pastor Bedoya MD Work Phone: [employer] 03-16-2022 11:00-0400 Systolic blood pressure 142 mm[Hg] Pastor Bedoya MD Work Phone: [employer] 03-15-2022 09:00-0400 Body height 182.9 cm Pastor Bedoya MD Work Phone: [facility] 03-15-2022 09:00-0400 Body mass index (BMI) [Ratio] 31.73 kg/m2 Pastor Bedoya MD Work Phone: [employer] [facility] 03-15-2022 09:00-0400 Body weight 106.14 kg Pastor Bedoya MD Work Phone: [employer] [facility] 2022 12:57-0400 Body height 182.9 cm Pastor Bedoya MD Work Phone: [employer] [facility] 2022 12:57-0400 Body mass index (BMI) [Ratio] 33.23 kg/m2 Pastor Bedoya MD Work Phone: [employer] [facility] 2022 12:57-0400 Body temperature 97.2 [degF] Pastor Bedoya MD Work Phone: [employer] [facility] 2022 12:57-0400 Body weight 111.13 kg Pastor Bedoya MD Work Phone: [employer] [facility] 11-04-2021 14:30-0500 Body height Carmen Femi Other [facility] Other 03-20-2020 11:06-0400 BMI (Body Mass Index) 33.63 kg/m2 [email or web address] 03-20-2020 11:06-0400 Body Temperature 97.5 [degF] [facility] [place] 03-20-2020 11:06-0400 Body weight 112.49 kg [facility] 03-20-2020 11:06-0400 Height 182.9 cm [facility] [place] [facility] 1945 00:00-0500 >na< Damari Rojas Dept. of Dermato logy Encounters Encounter Date Encounter Type Care Provider Facility Start: 07-12-2025 End: 07-12-2025 ambulatory Augustine Metz DO Work Phone: [facility] Start: 07-12-2025 End: 07-12-2025 Patient encounter procedure Augustine WILSON [facility] Work Phone: Start: 07-04-2025 End: 07-04-2025 Bamboo flowsheet Osman Shah [employer]OL AND 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 Work Phone: [facility] Start: 07-04-2025 End: 07-11-2025 Bamboo flowsheet Osman Shah [employer]OL AND 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 Work Phone: [facility] Start: 07-04-2025 End: 07-11-2025 External Result Encounter Osman Shah 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 Work Phone: [facility] External Department Unsolicited Start: 07-04-2025 End: 07-04-2025 Office outpatient visit 15 minutes Osman Shah [employer] AND 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 Work Phone: [facility] Comment on above: Seborrheic keratosis ; Lentigines; Capillary angioma; Telangiectasia of face; History of malignant melanoma of skin; History of basal cell carcinoma; Melanocytic nevi of trunk; Actinic keratosis; Neoplasm of unspecified behavior of bone, soft tissue, and skin Start: 07-04-2025 End: 07-04-2025 ambulatory OSMAN SHAH Not Available Start: 06-26-2025 Non-patient / Non-visit Kingston Gatica [facility] Work Phone: Start: 06-25-2025 End: 06-25-2025 ambulatory [place] Start: 05-07-2025 Non-patient / Non-visit [facility] Work Phone: Start: 04-02-2025 End: 04-02-2025 ambulatory Augustine Metz DO Work Phone: [facility] Work Phone: Start: 04-02-2025 End: 04-02-2025 [facility] Start: 02-22-2025 Non-patient / Non-visit Augustine garcia DO -[facility] Work Phone: Start: 02-13-2025 End: 02-13-2025 Patient encounter procedure Augustine Metz DO -[facility] Work Phone: Start: 02-12-2025 Non-patient / Non-visit ESTHER Jose RA PP DO -[facility] Work Phone: Start: 02-07-2025 Non-patient / Non-visit Lisa Finnegan CLICKING MACHINE OPERATOR -[facility] Work Phone: Start: 02-07-2025 Non-patient / Non-visit ESTHER Jose RA PP DO -[facility] [facility] Work Phone[facility] Start: 02-06-2025 Non-patient / Non-visit Krzysztof Hogan DO -[facility] Work Phone: Start: 01-11-2025 End: 01-11-2025 ambulatory [facility] Start: 01-11-2025 Non-patient / Non-visit Maggy valero -[facility] Work Phone: Start: 01-09-2025 End: 01-09-2025 ambulatory Augustine Metz DO Work Phone: [facility] Work Phone: Start: 01-09-2025 End: 01-09-2025 Patient encounter procedure Augustine Metz DO Work Phone: [facility] Physician [facility] Work Phone: Start: 01-03-2025 End: 01-03-2025 Bamboo flowsheet Osman A Felter TOOL AND 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 Work Phone: [facility] Start: 01-03-2025 End: 01-03-2025 Bamboo flowsheet Osman A Felter TOOL AND 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 Work Phone: [facility] Start: 01-03-2025 End: 01-03-2025 Office outpatient visit 15 minutes Osman A Felter TOOL AND 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 Work Phone: [facility] Comment on [...] original px Augustine Freitas DO Work Phone: [facility] Comment on above: Skin cancer of nose (Primary Dx) Start: 01-01-2025 End: 01-01-2025 ambulatory AUGUSTINE FREITAS Not Available Start: 12-28-2024 End: 12-28-2024 Bamboo flowsheet Jose R Dodd DO Work Phone: [facility] Start: 12-28-2024 End: 12-28-2024 Bamboo flowsheet Jose R Dodd DO Work Phone: [facility] Start: 12-28-2024 End: 12-28-2024 Refill [...] original px Augustine Freitas DO Work Phone: [facility] Comment on above: Mohs defect of [...] surgery center Augustine Metz DO Work Phone: [facility] [place] Start: 10-22-2024 End: 10-22-2024 ambulatory Augustine Metz DO Work Phone: [facility] Work Phone: Start: 10-17-2024 End: 10-17-2024 Patient encounter procedure Augustine Metz DO Work Phone: [facility] Work Phone: Start: 10-17-2024 End: 10-17-2024 ambulatory Augustine Metz DO Work Phone: [facility] Work Phone: Start: 10-17-2024 Encounter for preprocedural laboratory examination Augustine Freitas [facility] Start: 10-17-2024 End: 10-17-2024 Bamboo [...] Not Available Start: 10-10-2024 End: 10-10-2024 ambulatory [facility] Work Phone: Start: 10-10-2024 End: 10-10-2024 Patient encounter procedure [facility] Work Phone: Start: 10-04-2024 End: 10-04-2024 Patient encounter procedure Osman A Felter TOOL AND 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 Work Phone: [facility] Comment on above: Neoplasm of unspecif ied behavior of bone, soft tissue, and skin (Primary Dx) Start: 10-04-2024 End: 10-04-2024 Bamboo flowsheet Osman A Felter TOOL AND 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 Work Phone: [facility] Start: 10-04-2024 End: 10-04-2024 Bamboo flowsheet Osman A Felter TOOL AND 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 Work Phone: [facility] Start: 10-04-2024 End: 10-04-2024 ambulatory OSMAN A FELTER Not Available Start: 10-03-2024 End: 10-03-2024 Bamboo flowsheet Kingston Coppola DO Work Phone: [facility] Start: 10-03-2024 End: 10-03-2024 Bamboo flowsheet Kingston Coppola DO Work Phone: [facility] Start: 10-03-2024 End: 10-03-2024 Office outpatient visit 25 minutes Kingston Coppola DO Work Phone: [facility] Comment on above: CUBA (obstructive sle ep [...] 08-21-2024 End: 08-21-2024 Patient encounter procedure [facility] Physician [facility] Work Phone: Start: 08-14-2024 Non-patient / Non-visit [facility] Physician [facility] Work Phone: Start: 08-14-2024 Non-patient / Non-visit [facility] Physician [facility] Work Phone: Start: 07-11-2024 End: 07-11-2024 ambulatory [facility] Start: 07-09-2024 Patient encounter procedure [facility] Start: 07-09-2024 End: 07-09-2024 ambulatory [facility] Work Phone: Start: 07-09-2024 End: 07-09-2024 Patient encounter procedure [facility] Work Phone: Start: 06-27-2024 End: 06-27-2024 Bamboo flowsheet Simran Muniz PASSEMENTERIE WORKER Work Phone: [facility] Start: 06-27-2024 End: 06-27-2024 Bamboo flowsheet Simran Muniz PASSEMENTERIE WORKER Work Phone: [facility] Start: 06-27-2024 Non-patient / Non-visit [facility] Physician [facility] Work Phone: Start: 06-27-2024 End: 06-27-2024 Office outpatient visit 25 minutes Simran Muniz PASSEMENTERIE WORKER [facility]: [facility] Comment on above: PLMD (periodic limb movement disorder) (Primary Dx); CUBA (obstructive sleep apnea); Daytime hypersomnolence; Primary insomnia; Snoring Start: 06-19-2024 End: 06-19-2024 Bamboo flowsheet Osman A Leonardoer TOOL AND 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 Work Phone: [facility] Start: 06-19-2024 End: 06-19-2024 Bamboo [employer] Osman A Felter TOOL AND 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 Work Phone: [facility] Start: 06-19-2024 End: 06-19-2024 Office outpatient visit 15 minutes Osman Pattersoner TOOL AND 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 Work Phone: [facility] Comment on above: Seborrheic keratosis ; Melanocytic nevus of trunk; Lentigines; Capillary angioma; Telangiectasia of face; Actinic keratosis; Seborrheic keratosis, inflamed; History of malignant melanoma of skin Start: 06-08-2024 End: 06-08-2024 Bamboo flowsheet Jose R Dodd DO Work Phone: [facility] Start: 06-08-2024 End: 06-08-2024 Bamboo [employer] Jose R Dodd DO Work Phone: [facility] Start: 06-04-2024 End: 06-04-2024 ambulatory [facility] Work Phone: Start: 06-04-2024 End: 06-04-2024 Patient encounter procedure [facility] Work Phone: Start: 05-16-2024 End: 05-16-2024 ambulatory DO Augustine Ball Work Phone: [facility] Work Phone: Start: 05-16-2024 End: 05-16-2024 Patient encounter procedure DO Augustine Ball Work Phone: [facility] Work Phone: Start: 04-18-2024 Non-patient / Non-visit DO Alo louann Ball Work Phone: [facility] Work Phone: Start: 04-04-2024 End: 04-04-2024 ambulatory DO Augustine Ball Work Phone: [facility] Work Phone: Start: 04-04-2024 End: 04-04-2024 Patient encounter procedure DO Augustine Ball Work Phone: [facility] Work Phone: Start: 04-02-2024 Non-patient / Non-visit [facility] Work Phone: Start: 04-02-2024 Non-patient / Non-visit DO Alo louann Ball Work Phone: [facility] Work Phone: Start: 04-01-2024 Non-patient / Non-visit DO Alo louann Ball Work Phone: [facility] Work Phone: Start: 02-27-2024 End: 02-27-2024 ambulatory DO Augustine Ball Work Phone: [facility] Work Phone: Start: 02-27-2024 End: 02-27-2024 Patient encounter procedure DO Augustine Ball Work Phone: [facility] Work Phone: Start: 02-24-2024 End: 02-24-2024 Admission to same day surgery center DO Augustine Ball Work Phone: [facility] [place] Start: 02-24-2024 End: 02-24-2024 ambulatory DO Augustine Metz Work Phone: [facility] Work Phone: Start: 02-16-2024 End: 02-16-2024 Patient encounter procedure DO Augustine Metz Work Phone: [facility]-Pre-Surgical Testing Work Phone: Start: 02-16-2024 End: 02-16-2024 ambulatory DO Augustine Metz Work Phone: [facility] Work Phone: Start: 02-16-2024 Encounter for preprocedural cardiovascular examination Augustien Pereyra [facility] Start: 01-31-2024 End: 01-31-2024 ambulatory [facility] Work Phone: Start: 01-31-2024 End: 01-31-2024 Patient encounter procedure [facility] Work Phone: Start: 01-31-2024 Non-patient / Non-visit [facility] Work Phone: Start: 01-18-2024 Non-patient / Non-visit [facility] Work Phone: Start: 12-16-2023 Non-patient / Non-visit [facility] Work Phone: Start: 11-01-2023 End: 11-01-2023 ambulatory Augustine Metz Other [facility] Other Start: 11-01-2023 Telephone encounter Augustine PHILIPPE [facility] Start: 10-31-2023 End: 10-31-2023 ambulatory Augustine Metz Other [facility] Other Start: 10-31-2023 Office outpatient vi sit 25 minutes Augustine Metz [facility] Start: 10-28-2023 Bamboo flowsheet Jose R Green hler DO Work Phone: [facility] Start: 10-28-2023 Bamboo flowsheet Jose R Green hler DO Work Phone: [facility] Start: 07-11-2023 End: 07-11-2023 ambulatory Augustine Metz Other [facility] Other Start: 07-11-2023 Telephone encounter Augustine [facility]IPPE [facility] Start: 07-10-2023 End: 07-10-2023 ambulatory Augustine Metz Other [facility] Other Start: 07-10-2023 Telephone encounter Augustine PHILIPPE [facility] Start: 07-05-2023 End: 07-05-2023 Emergency department patient visit Augustine Metz Facility:[facility] Start: 03-16-2023 ambulatory AZUL RACHEL [facility] Start: 03-16-2023 End: 03-16-2023 Office outpatient visit 15 minutes Azul Rachel APRN-TOBI Work Phone: [facility] Comment on above: Hx of total knee art hroplasty, right (Primary Dx) Start: 03-16-2023 End: 03-16-2023 Subsequent hospital visit by physician Azul LAN Work Phone: [facility] Start: 02-01-2023 ambulatory AUGUSTINE METZ Facilit y:[facility] Start: 01-24-2023 End: 02-23-2023 ambulatory SHAIKH Tiburcio PRICE Facility:H1 Start: 01-22-2023 End: 01-22-2023 ambulatory Augustine Metz Other [facility] Other Start: 01-22-2023 Telephone encounter Augustine Metz [facility] Start: 2023 End: 01-22-[address] AUGUSTINE METZ Facility:[facility]1 Start: 01-05-2023 End: 01-05-2023 ambulatory Augustine Metz Other [facility] Other Start: 01-05-2023 Office outpatient vi sit 25 minutes Augustine Metz [facility] Start: 12-27-2022 End: 2023 ambulatory SHAIKH Tiburcio PRICE Facility:H1 Start: 11-24-2022 End: 12-24-2022 ambulatory SHAIKH Tiburcio PRICE Facility:[facility]1 Start: 11-10-2022 End: 11-10-2022 ambulatory Augustine Metz Other [facility] Other Start: 11-10-2022 Telephone encounter Augustine Metz [facility] Start: 11-09-2022 Telephone encounter Augustine Isaías [facility] Start: 11-09-2022 End: 11-10-2022 ambulatory AUGUSTINE Ramirez ISAÍAS [facility] [employer] Other Start: 11-08-2022 ambulatory AUGUSTINE METZ Facilit [...] 10-04-2022 End: 10-04-2022 ambulatory Augustine Metz Other [facility] Other Start: 10-04-2022 Office outpatient vi sit 25 minutes Augustine [facility] Start: 10-01-2022 ambulatory Ms. Osman Shah Facility:[id number] Start: 09-27-2022 End: 10-27-2022 ambulatory SHAIKH Tiburcio PRICE Facility:H1 Start: 09-14-2022 Damari Rojas Dept. of D ermatology Start: 09-09-2022 Pre-procedure evaluation check Augustine Metz Other [facility] Other Start: 09-07-[address] Macario Bui Facility:[id number] Start: 08-26-2022 End: 09-26-2022 ambulatory SHAIKH Tiburcio PRICE Facility:H1 Start: 07-27-2022 End: 08-25-2022 ambulatory SHAIKH Tiburcio PRICE Facility:H1 Start: 07-13-2022 End: 07-14-[address] AUGUTSINE METZ Facility:H1 Start: 07-08-2022 ambulatory PASTOR BEDOYA [facility] Start: 07-08-2022 End: 07-08-2022 Office outpatient visit 15 minutes Pastor Bedoya MD Work Phone: [facility] Comment on above: Hx of total knee art hroplasty, right (Primary Dx) Start: 07-08-2022 End: 07-08-2022 Subsequent hospital visit by physician Pastor Bedoya MD Work Phone: [facility] Start: 06-28-2022 End: 06-29-[address] AUGUSTINE METZ Facility:H1 Start: 06-28-2022 End: 07-26-2022 ambulatory SHAIKH Tiburcio PRICE Facility:H1 Start: 06-15-2022 End: 06-16-[address] AUGUSTINE METZ Facility:H1 Start: 05-27-2022 End: 06-26-2022 ambulatory SHAIKH Tiburcio PRICE Facility:H1 Start: 05-03-2022 End: 05-03-2022 Patient encounter procedure Mc Blackman GAGE [facility] Start: 04-26-2022 End: 04-27-[address] AUGUSTINE METZ Facility:H1 Start: 04-26-2022 End: 05-26-2022 ambulatory SHAIKH Tiburcio PRICE Facility:H1 Start: 04-19-2022 End: 05-08-[address] AUGUSTINE METZ Facility:H1 Start: 04-08-2022 ambulatory AZUL RACHEL [facility] Start: 04-08-2022 End: 04-08-2022 Postop follow up visit related to original px Azul LAN Work Phone: [facility] Comment on above: Hx of total knee art hroplasty, right (Primary Dx) Start: 04-08-2022 End: 04-08-2022 Subsequent hospital visit by physician Azul LAN Work Phone: [facility] Start: 04-07-2022 End: 04-08-[address] AUGUSTINE METZ Facility:H1 Start: 03-26-2022 End: 04-23-2022 ambulatory SHAIKH Tiburcio PRICE Facility:H1 Start: 03-15-2022 End: 03-16-2022 Patient encounter status Pastor Bedoya MD Work Phone: [facility] SUR[facility] Start: 03-15-2022 End: 03-16-2022 Subsequent hospital visit by physician Pastor Bedoya MD Work Phone: [facility] Comment on above: S/P total knee arthr oplasty, right Start: 2022 End: 2022 Office outpatient new 60 minutes Pastor Bedoya MD Work Phone: [facility] Comment on above: Right knee pain, uns pecified chronicity (Primary Dx); Pain in prosthetic joint, sequela Start: 2022 End: 2022 Subsequent hospital visit by physician Pastor Bedoya MD Work Phone: [facility] Start: 11-04-2021 End: 11-04-2021 ambulatory Carmen Kahn Other [facility] Other Start: 11-04-2021 Office outpatient vi sit 25 minutes Carmen Kahn [facility] Gastroenterology Start: 11-03-2021 End: 11-03-2021 ambulatory Carmen Kahn Other [facility] Other Start: 11-03-2021 Telephone encounter Carmen Femi 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) Start: 03-20-2020 End: 03-20-2020 Subsequent hospital visit by physician Azul Rachel APRN-PROMOTIONS PRODUCER Work Phone: [facility] Start: 06-13-2019 End: 06-14-2019 Patient encounter procedure GENE JONES Facility:[facility] Procedures Date Procedure Procedure Detail Performing Clinician Start: 07-04-2025 SKIN / NAIL BIOPSY Osman Jose Alyssa TOOL AND 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 Work Phone: Start: 07-04-2025 Level i surg pathology gross examination only Osman Jose Alyssa TOOL AND 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 Work Phone: Start: 01-03-2025 CRYOTHERAPY SKIN LESION Osman Jose Alyssa TOOL AND 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 Work Phone: Start: 12-28-2024 End: 12-28-2024 Oph [...] involvement Start: 10-22-2024 GLUCOSE POCT GLUCOMETERS Augustine Mcgrath ek DO Work Phone: Start: 10-22-2024 OR Nasal [...] Start: 10-04-2024 SKIN / NAIL BIOPSY Osman Damon Alyssa TOOL AND 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 Work Phone: Start: 09-07-2024 Computerized ophthalmic imaging retina Jose R Dodd DO Work Phone: Start: 09-07-2024 End: 09-07-2024 [facility] xm&eval intermediate estab pt 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 Jose R Dodd DO Work Phone: Comment on above: Advanced atrophic nonexudative age-relat ed macular degeneration of both eyes without subfoveal involvement (Primary Dx); Dry eyes; Age-related nuclear cataract of both eyes; Type 2 diabetes mellitus without complication, without long-term current use of insulin ([facility] Start: 06-19-2024 End: 06-19-2024 CRYOTHERAPY SKIN LESION Osman Pattersondeloris TOOL AND 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 Work Phone: Start: 06-08-2024 Computerized ophthalmic imaging retina Jose R Dodd DO Work Phone: Start: 06-08-2024 End: 06-08-2024 [facility]&eval comprhnsv estab pt 1/> Advanced atrophic nonexudative [...] DO Work Phone: Start: 10-28-2023 End: 10-28-2023 [facility]&al comprhnsv estab pt 1/> 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 Jose R Samira Sherrell DO Work Phone: Comment on above: Advanced [...] Phone: Start: 03-15-2022 Prothrombin time Azul Rachel TOOL AND 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 Work Phone: Start: 03-15-2022 Cultyp nuc acid amp prb cult/isolate ea marisela Rachel TOOL AND 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-[place] Work Phone: Start: 03-15-2022 Sars-cov-2 detection by dna/rna Azul ramirez TOOL AND 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Graspr Work Phone: Start: 03-15-2022 Antibody screen rbc each serum technique Pastor Bedoya MD Work Phone: Start: 03-15-2022 End: 03-15-2022 Thromboplastin time partial plasma/whole blood Azul Rachel [employer] AND 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Graspr Work Phone: Start: 01-10-2020 Renal lithotripsy Mc ALMONTE Start: 10-23-2019 Cystoscopic removal of ureteric stent Mc ALMONTE Start: 09-26-2019 Endoscopic retrograde cholangiopancreatography Mc ALMONTE Cholecystectomy [facility] Colonoscopy Mc ALMONTE Depression screening Ramirez Metz Other Total knee replacement Ro luu ALMONTE Plan of Treatment Date Care Activity Detail Author Start: 01-02-2026 End: 01-02-2026 Patient encounter procedure 01/02/2026 8:45 AM EDT Office Visit [facility] [address] [place] [address] Meaghan Torres MD [address] [place] [address] [facility] Start: 07-19-2025 End: 07-19-2025 Patient encounter procedure 07/19/2025 9:00 AM EDT Office Visit [facility] [address] [place] [phone] Jose R Dodd DO [address] [place] [address] [facility] Start: 07-04-2025 End: 07-04-2025 Patient encounter procedure [facility] Comment on above: Arrived Start: 05-27-2025 Influenza vaccination Influenza Vaccine (#1) [facility] Start: 02-26-2025 End: 02-26-2025 Patient encounter procedure 02/26/2025 10:15 AM EDT Office Visit [facility] [address] [place] [address] Jose R Dodd, [address] [place] [address] [facility] Start: 01-03-2025 End: 01-03-2025 Patient encounter procedure [facility] Comment on above: Arrived Start: 01-01-2025 End: 01-01-2025 Patient encounter procedure [facility] [place] Comment on above: Arrived Start: 12-28-2024 End: 12-28-2024 Patient encounter procedure [facility] Comment on above: Arrived Start: 10-30-2024 End: 10-30-2024 Patient encounter procedure [facility] Comment on above: Arrived Start: 10-22-2024 End: 10-22-2024 [facility] Start: 10-17-2024 End: 10-17-2024 Patient encounter [...] DERM [address] [place] [address] Osman Shah, TOOL AND 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 [address] [place] [address] [facility] Start: 06-27-2024 End: 06-27-2024 Patient encounter procedure 06/27/2024 9:00 AM EDT Office Visit [facility] [address] [place] [address] Simran Muniz, ABILIO [address] [place], [place] Arrived [facility] Comment on above: Arrived Start: 06-19-2024 End: 06-19-2024 Patient encounter procedure 06/19/2024 9:25 AM EDT Office Visit [facility] [address] [place] [phone] Osman Shah, TOOL AND 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 [address] [place] [address] Arrived [facility] Comment on above: Arrived Start: 06-08-2024 End: 06-08-2024 Patient encounter procedure 06/08/2024 10:30 AM EDT Office Visit [facility] [address] [place] [phone] Jose R Dodd, [address] [place] [address] Arrived [facility] Comment on above: Arrived Start: 05-27-2024 Influenza vaccination Influenza Vaccine (#1) [facility] Start: 02-24-2024 End: 02-24-2024 [facility] Start: 01-10-2024 End: 01-10-2024 Patient encounter procedure 01/10/2024 9:35 AM EDT Office Visit [facility] [address] [place] [phone] Osman Shah, TOOL AND 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 [address] [place] [address] [facility] Start: 10-28-2023 End: 10-28-2023 Patient encounter procedure 10/28/2023 9:30 AM EST Procedure Visit [facility] [address] [place] [phone] Jose R Dodd DO [address] [place] [address] Arrived [facility] Comment on above: Arrived Start: 05-27-2023 Influenza vaccination Influenza Vaccine (#1) [facility] Start: 03-16-2023 End: 03-16-2023 Patient encounter procedure 03/16/2023 Office Visit Orthopaedics Azul Rachel APRN-PROMOTIONS PRODUCER [address] [place] [address] [facility] Start: 10-22-2022 COVID-19 VACCINE (6 - Pfizer series) COVID-19 VACCINE (6 - Pfizer series) [facility] Start: 08-21-2022 Hemoglobin A1c measurement HBA1C TEST [facility] Start: 07-08-2022 End: 07-08-2022 Patient encounter procedure 07/08/2022 Office Visit Orthopaedics Pastor Bedoya MD [address] [place] [address] [facility] Start: 05-27-2022 Influenza vaccination [facility] Start: 04-08-2022 End: 04-08-2022 Patient encounter procedure 04/08/2022 Office Visit Azul Campos TOOL AND 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 [address] [place] [address] [facility] Start: 02-18-2022 End: 02-18-2022 ambulatory 02/18/2022 Pre-Operative Nurse Assessment Internal Medicine [facility] Pre Admission Start: 05-27-2020 Influenza vaccination INFLUENZA VACCINE (Season Ended) [facility] Start: 12-25-2014 Pneumococcal vaccination PNEUMOCOCCAL VACCINE SERIES (2 - PCV) [facility] Start: 12-25-2014 Pneumococcal Vaccine: 65+ Years (2 - PCV) Pneumococcal Vaccine: 65+ Years (2 - PCV) [facility] Start: 12-25-2014 Pneumococcal Vaccine: 65+ Years (2 of 2 - PCV) Pneumococcal Vaccine: 65+ Years (2 of 2 - PCV) [facility] Start: 2011 Abdominal aortic aneurysm screening ABDOMINAL AORTIC ANEURYSM HIGH RISK SCREEN [facility] Start: 2011 Pneumococcal vaccination [facility] Start: 01-22-1996 Colonoscopy COLORECTAL CANCER SCREENING DISCUSSION [facility] Start: 01-22-1996 Prostate specific antigen measurement PROSTATE CANCER SCREENING DISCUSSION [facility] Start: 01-22-1996 Zoster vaccine hzv live for subcutaneous use ZOSTER (SHINGLES) VACCINE (1 of 2) [facility] Start: 1991 Colonoscopy COLORECTAL CANCER SCREENING DISCUSSION [facility] Start: 1991 Screening for malignant neoplasm of colon COLORECTAL CANCER SCREENING DISCUSSION [facility] Start: 1986 Fasting lipid profile LIPID SCREENING [facility] Start: 1965 Third diphtheria, tetanus and acellular pertussis (DTaP) vaccination TDAP (ADULT) [facility] Start: 01-22-1964 Tetanus vaccination TETANUS [facility] Start: 1951 COVID-19 VACCINE (#1) COVID-19 VACCINE (#1) [facility] tem Start: 1946 COVID-19 VACCINE (#1) COVID-19 VACCINE (#1) [facility] Start: 1946 Diabetic foot examination DIABETIC FOOT EXAM [facility] Start: 1946 Diabetic retinal eye exam EYE EXAM [facility] Start: 1946 Glaucoma screening EYE EXAM [facility] Start: 1946 Hepatitis B vaccination HEP B VACCINE (1 of 3 - 3-dose series) [facility] Start: 1946 Hepatitis C antibody, confirmatory test HEPATITIS C VIRUS SCREENING [facility] Start: 1946 Hepatitis C screening HEPATITIS C VIRUS SCREENING [facility] Start: 1946 Lipid panel LIPIDS [facility] Start: 1946 LIPIDS LIPIDS [facility] Start: 1946 Microalbumin measurement, urine, quantitative URINE MICROALBUMIN TEST [facility] Start: 1946 Potassium [Moles/Vol] POTASSIUM [facility] Start: 1946 Tetanus vaccination TETANUS [facility] Start: 1946 Urine screening for protein URINE MICROALBUMIN TEST [facility] Dermatopathology exam Dermatopat hology exam Pathology and Cytology Timed Neoplasm of unspecified behavior of bone, soft tissue, and skin Release Upon Ordering for 1 Occurrences starting 10/04/2024 [employer] Work Phone: Comment on above: Release Upon Ordering for 1 Occurrences starting 10/04/2024 Dermatopathology exam Dermatopat hology exam Pathology and Cytology Timed Neoplasm of unspecified behavior of bone, soft tissue, and skin Release Upon Ordering for 1 Occurrences starting 07/04/2025 [employer] Work Phone: Comment on above: Release Upon Ordering for 1 Occurrences starting 07/04/2025 Patient Education Know your Meds [facility] Work Phone: Patient referral [facility] Work Phone: Radiography for bone length studies XR BONE LENGTH STUDY Imaging Routine Hx of total knee arthroplasty, right 07/08/2022 11:01 AM [employer] Work Phone: SURGICAL PATHOLOGY REQUEST SURGICAL PATHOLOGY REQUEST Surg Path Routine Osteoarthritis of right knee, unspecified osteoarthritis type Release Upon Ordering for 1 Occurrences starting 03/15/2022 [employer] Work Phone: Comment on above: Release Upon Ordering for 1 Occurrences starting 03/15/2022 X-ray of left knee XR KNEE LEFT 3 VIEWS Imaging Routine History of revision of total replacement of left knee joint 03/20/2020 10:48 AM EDT [employer] XR Knee - left 3 Views XR KNEE L EFT 3 VIEWS Imaging Routine Pain in prosthetic joint, sequela 2022 1:09 PM EDT [employer] XR Knee - right 3 Views XR KNEE RIGHT 3 VIEWS Imaging Routine Hx of total knee arthroplasty, right 04/08/2022 10:04 AM EDT [facility] XR Knee - right 3 Views XR KNEE RIGHT 3 VIEWS Imaging Routine Hx of total knee arthroplasty, right 07/08/2022 11:01 AM EDT [employer] [facility] XR Knee - right 3 Views XR KNEE RIGHT 3 VIEWS Imaging Routine Hx of total knee arthroplasty, right 03/16/2023 11:03 AM [facility] XR Knee - right 4 Views XR KNEE RIGHT 4+ VIEWS Imaging Routine Right knee pain, unspecified chronicity [facility]22 12[facility] Immunizations Immunization Date Immunization Notes Care Provider Dunia burrell 07-12-2025 influenza, high dose seasonal, preservative-free Augustine Ball DO Work Phone: [facility] 08-21-2024 COVID-19 (PFIZER) 12Y and older Augustine Ball DO Work Phone: [facility] 07-09-2024 influenza, high dose seasonal, preservative-free [facility] 07-09-2024 influenza virus vaccine, unspecified formulation Osman Ptatersondeloris [employer] 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-[facility] Work Phone: [facility] 12-27-2023 COVID-19 (PFIZER) 12Y and older DO Augustine Ball Work Phone: [facility] 07-08-2023 influenza virus vaccine, unspecified formulation [facility] 07-08-2023 influenza, high dose seasonal, preservative-free Augustine Ball Other [facility] Other 06-21-2023 COVID-19 (PFIZER) 12Y and older DO Augustine Ball Work Phone: [facility] 03-03-2023 zoster vaccine recombinant Augustine Ball Other [facility] 01-01-2023 zoster vaccine recombinant Augustine Ball Other [facility] 06-29-2022 influenza, high dose seasonal, preservative-free Augustine Ball Other [facility] Other 06-29-2022 influenza virus vaccine, split virus (incl. purified surface antigen) Augustine Metz Other [facility] Other 06-29-2022 Influenza, Seasonal, Quadrivalent, Adjuvanted Jose R Zahler DO Work Phone: [facility] 06-29-2022 influenza virus vaccine, unspecified formulation Jose R Zahler DO Work Phone: [facility] 06-22-2022 COVID-19 Pfizer (bivalent) Augustine Metz Other [facility] 04-17-2022 COVID-19 Comirnaty (Pfizer) Tri-Sucrose 12+ DO Augustine Metz Work Phone: [facility] 07-15-2021 influenza virus vaccine, split virus (incl. purified surface antigen) Augustine Metz Other [facility] Other 07-15-2021 influenza virus vaccine, unspecified formulation [facility] 07-15-2021 Seasonal trivalent influenza vaccine, adjuvanted, preservative free Jose R Normahler DO Work Phone: [facility] 06-22-2021 COVID-19 Vaccine Pfi zer - Documentation Purposes Only Augustine Metz Other [facility] 11-20-2020 COVID-19 Vaccine Pfi zer - Documentation Purposes Only Augustine Metz Other [facility] 10-30-2020 COVID-19 Vaccine Pfi zer - Documentation Purposes Only Augustine Metz Other [facility] 07-09-2020 influenza, high dose seasonal, preservative-free Jose R Zahler DO Work Phone: [facility] 07-01-2020 influenza virus vaccine, split virus (incl. purified surface antigen) Augustine Metz Other [facility] Other 07-01-2020 influenza virus vaccine, unspecified formulation [facility] 07-06-2019 influenza virus vaccine, split virus (incl. purified surface antigen) Augustine Metz Other [facility] Other 07-06-2019 influenza virus vaccine, unspecified formulation [facility] 07-12-2018 influenza virus vaccine, split virus (incl. purified surface antigen) Augustine Metz Other [facility] Other 07-12-2018 influenza virus vaccine, unspecified formulation [facility] 07-12-2018 Seasonal trivalent influenza vaccine, adjuvanted, preservative free Jose R Zahler DO Work Phone: [facility] 07-25-2017 influenza virus vaccine, split virus (incl. purified surface antigen) Augustine Metz Other [facility] Other 07-25-2017 influenza virus vaccine, unspecified formulation [facility] 07-25-2017 influenza, high dose seasonal, preservative-free Jose R Zahler DO Work Phone: [facility] 07-07-2016 influenza virus vaccine, split virus (incl. purified surface antigen) Augustine Metz Other [facility] Other 07-07-2016 influenza virus vaccine, unspecified formulation [facility] 07-07-2016 influenza, high dose seasonal, preservative-free Jose R Zahler DO Work Phone: [facility] 07-18-2015 pneumococcal conjuga te vaccine, 13 valent Augustine Metz Other [facility] 06-11-2015 influenza virus vaccine, split virus (incl. purified surface antigen) Augustine Metz Other [facility] Other 06-11-2015 influenza virus vaccine, unspecified formulation [facility] 05-27-2015 influenza, injectabl e, madin emilee canine kidney, preservative free Jose R Zahler DO Work Phone: [facility] 06-17-2014 tetanus and diphther ia toxoids, adsorbed, preservative free, for adult use (5 Lf of tetanus toxoid and 2 Lf of diphtheria toxoid) Augustine Metz Other [facility] 12-25-2013 pneumococcal polysaccharide vaccine, 23 valent Jose R Zasarinadeloris DO Work Phone: [facility] 08-28-2013 pneumococcal polysaccharide vaccine, 23 valent Augustine Metz Other [facility] 07-26-2013 tetanus and diphther ia toxoids, adsorbed, preservative free, for adult use (5 Lf of tetanus toxoid and 2 Lf of diphtheria toxoid) Augustine Metz Other [facility] 07-18-2013 zoster vaccine, live Ramirez Metz Other [facility] 1945 pneumococcal conjuga te vaccine, 7 valent Damari Rojas Dept. of Dermatology Payers Date Payer Category Payer Self-pay [id number] 2022 Private Health Insurance [employer] [id number] 2017 Unknown [employer] M MO TRADITIONAL [id number] 2017-Present [id number]. [id number] 2010 Medicare MEDICARE MEDICAR E A AND B [id number] 2010-Present [place] [id number]. [id number] 2008 Medicare [id number]. 1.13.172.2. [id number] 2008 Unknown [id number]. 1.13.172.2. 7.3.378393.315 1959 Medicare [id number] 2.16.840.1.505784.19 1959 Unknown [id number] 1946 Unknown [id number] 2.16.840.1.873515.3.579.2. 647 1946 Unknown [id number] 2.16.840.1.955888.3.579.2. 356 1946 Unknown [id number] 2.16.840.1.567123.3.579.2. 356 1946 Unknown [id number] 2.16.840.1.755831.3.579.2. 159 1946 Unknown [id number] 2.16.840.1.629886.3.579.2. 159 1946 Unknown [id number] 2.16.840.1.796307.3.579.2. 159 1946 Unknown [id number] 2.16.840.1.499086.3.579.2. 159 1946 Unknown [id number] 2.16.840.1.389094.3.579.2. 159 1946 Unknown [id number] 2.16.840.1.007213.3.579.2. 593 1946 Unknown [id number] 2.16.840.1.389313.3.579.2. 593 1946 Unknown [id number] 2.16.840.1.122879.3.579.2. 593 1946 Unknown [id number] 2.16.840.1.480092.3.579.2. 593 1946 Unknown [id number] 2.16.840.1.873778.3.579.2. 593 1946 Unknown [id number] 2.16.840.1.076755.3.579.2. 593 1946 Unknown [id number] 2.16.840.1.186112.3.579.2. 593 1946 Unknown [id number] 2.16.840.1.947858.3.579.2. 593 1946 Unknown [id number] 2.16.840.1.467772.3.579.2. 593 1946 Unknown [id number] 2.16.840.1.134979.3.579.2. 593 1946 Unknown [id number] 2.16.840.1.441746.3.579.2. 593 1946 Unknown [id number] 2.16.840.1.419524.3.579.2. 593 1946 Unknown [id number] 2.16.840.1.173898.3.579.2. 593 1946 Unknown [id number] 2.16.840.1.530886.3.579.2. 593 1946 Unknown [id number] 2.16.840.1.049333.3.579.2. 593 1946 Unknown [id number] 2.16.840.1.674793.3.579.2. 593 1946 Unknown [id number] 2.16.840.1.976359.3.579.2. 593 1946 Unknown [id number] 2.16.840.1.571331.3.579.2. 593 1946 Unknown [id number] 2.840.1.901042.3.579.2. 593 1946 Unknown [id number] 2.840.1.184437.3.579.2. 593 1946 Unknown [id number] 2.840.1.287269.3.579.2. 983 1946 Unknown [id number] 2.840.1.780228.3.579.2. 983 1946 Unknown [id number] 2.840.1.155215.3.579.2. 983 1946 Unknown [id number] 2.840.1.320752.3.579.2. 983 1946 Unknown [id number] 2.0.1.783942.3.579.2. 983 1946 Unknown [id number] 2.840.1.675277.3.579.2. 983 1946 Unknown [id number] 2.0.1.654534.3.579.2. 718 1946 Unknown [id number] .840.1.164996.3.579.2. 1259 1946 Unknown [id number] 20.1.171556.3.579.2. 125 1946 Unknown [id number] .840.1.859926.3.579.2. 1259 1946 Unknown [id number] .840.1.981692.3.579.2. 1259 1946 Unknown [id number] 2.840.1.120650.3.579.2. 1259 1946 Unknown [id number] 2.840.1.729874.3.579.2. 1259 1946 Unknown [id number] 2.16.840.1.361341.3.579.2. 1259 1946 Unknown [id number] 2.16.840.1.986433.3.579.2. 1259 1946 Unknown [id number] 2.16.840.1.198126.3.579.2. 1259 1946 Unknown [id number] 2.16.840.1.157891.3.579.2. 1259 1946 Unknown [id number] 2.16.840.1.149918.3.579.2. 1259 Medicare [id number] Unknown [facility] [id number] Unknown [id number] 2.16.840.1.548269.3.579.2. 531 Unknown [id number] 2.16.840.1.125186.3.579.2. 531 Unknown [id number] 2.16.840.1.188435.3.579.2. 531 Unknown [id number] 2.16.840.1.516467.3.579.2. 531 Social History Date Type Detail Facility Start: 03-20-2020 End: 10-22-2024 Tobacco smoking status [facility] Former smoker [employer] End: 02-08-1983 History of tobacco use Current smoker [facility] Start: 03-20-2020 End: 07-08-2022 Tobacco use and exposure Former user [facility] End: 02-08-2003 History of tobacco use User of smokeless tobacco [facility] Start: 03-20-2020 End: 03-16-2023 Alcohol intake Current non-drinker of alcohol (finding) [facility] Start: 1945 Sex Assigned At Not on file [facility] Start: 03-05-2022 End: 03-15-2022 Exposure to SARS-CoV-2 (event) Not sure [employer] [facility] Start: 03-16-2023 End: 07-04-2025 Sex Assigned At [employer] Other Start: 05-03-2022 End: 12-16-2023 Tobacco smoking status Never smoked tobacco (finding) [facility] End: 02-08-1983 History of tobacco use Cigarette Smoker [facility] Start: 09-14-2022 Dept. of D ermatology Start: 1945 Sex Assigned At Male F [facility] Start: 03-16-2023 End: 07-04-2025 History of Social function [facility] Gender identity Identifies as ma le gender (finding) [facility] Start: 08-29-2023 End: 07-04-2025 Alcohol intake Lifetime non-drinker (finding) [facility] Start: 06-23-2023 Alcohol Comment caffeine: soda [facility] Start: 10-10-2024 End: 01-09-2025 Sex Male (finding) [facility] Start: 12-08-2022 Sex Male [facility] Medical Equipment Procedure Code Equipment Code Equipment [...] 05-03-2022 Functional Status N/A [facility] Clinical Notes 11-04-2021 to 07-04-2025 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 [...] Discussed treatment options, including cryotherapy and topical preparations. It was emphasized that any treated lesions [...] contact office for any questions or issues during treatment. Lesions that fail to resolve once treated [...] months skin exam documented in this encounter [facility] 06-25-2025 Note Cardiovascular Medic [facility] SUBJECTIVE Chief Complaint Patient presents with Follow-up Patient is here today for a routine 6 month follow up. Patient complains of dizziness/lightheaded, after mowed grass, occasional arm and chest pain that comes goes no other symptoms associated. Patient denies SOB, STEPHENSON, Atrial Fibrillation Hypertension Hyperlipidemia Coronary Artery Disease Gricelda Goncalves is a 80 y.o. male here for follow-up. Atrial Fibrillation Symptoms include dizziness. Symptoms are negative for chest pain, palpitations and syncope. Past medical history includes atrial fibrillation, CAD and hyperlipidemia. Hypertension Associated symptoms include malaise/fatigue. Pertinent negatives include no chest pain, orthopnea, palpitations or PND. Hyperlipidemia Pertinent negatives include no chest pain. Coronary Artery Disease Symptoms include dizziness and leg swelling. Pertinent negatives include no chest pain, palpitations or weight gain. Risk factors include hyperlipidemia. Dizziness Pertinent negatives include no chest pain, chills or fever. PMHx of paroxysmal a.fib s/p CV'n 2019, s/p LAAO device with Amulet on 01/24/2024, HTN, mild MR, CUBA 02/09/2024 Since last seen he underwent implant procedure [...] He c/o altered taste since starting amio. 06/25/2025 He has been doing well. He will be going down to [place] for a couple weeks soon and then will be coming back for a month or two then back down for the rest of winter. He has some intermittent dizziness, he notes it is not very often. He felt dizzy after mowing his lawn. BP was 140/40. BS was 90. After he ate and drank something sx's improved. He will walk daily - there is some inclines on his walks. Denies any issues with CP or dyspnea with walking. He has random left arm pain, occurs with sitting, lasts seconds then resolves on its own. Does not happen often. He has some mild leg swelling at the end of the day, improves by the AM. Denies c/o CP, orthopnea, PND, palpitations, syncope, bleeding issues. Patient Active Problem List Diagnosis Atrial fibrillation [...] Primary insomnia PLMD (periodic limb movement disorder) Past Medical History: Diagnosis Date Abnormal ECG Arrhythmia Atrial fibrillation (CMS/HCC) Cancer (CMS/HCC) Diabetes mellitus (CMS/HCC) Heart valve disease Hypertension Sleep apnea Family History Problem Relation Name Age of Onset Cancer Mother Alcohol abuse Father Heart attack Other Social History Tobacco Use Smoking status: Former Types: Cigarettes Smokeless tobacco: Never Substance Use Topics Alcohol use: Not Currently Drug use: Never Allergies Allergen Reactions Iodine Anaphylaxis Penicillins Hives Shellfish Containing Products Other Other Other Sulfa (Sulfonamide Antibiotics) Rash Review of Systems Constitutional: Positive for malaise/fatigue. Negative for chills, fever and weight gain. Cardiovascular: Positive for leg swelling. Negative for chest pain, dyspnea on exertion, irregular heartbeat, near-syncope, orth (more content not included)... [facility] 01-11-2025 Note [place] [facility] - [facility] [...] In April 2019 he presented to the [facility] with atrial fibrillation with [...] Chest: Chest wal (more content not included)... 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 [...] limited to risks of scarring, darker or nurse obgyn pigmentary changes, recurrence, incomplete removal and infection. [...] 6 months skin exam [facility] [id number] NoteRight Eye Quality was poor. Scan locations included subfoveal. Progression has been stable. Findings include abnormal foveal contour. Left Eye Quality was good. Scan locations included subfoveal. Progression has been stable. Findings include abnormal foveal contour. Notes Macular volume loss both eyes (OU).[facility] [id number] History of Present illness Narrative* Jose R [...] Medications (Ophthalmic Agents) Medication Sig Dispense Refill Xruqjjjgrst-Qmmpqadk-Vnyghimfl 1-0.5-0.075 % solution Administer 1 drop into [...] Daily gabapentin (Neurontin) 300 MG capsule HYDROcodone-acetaminophen (Uvalda) 7.5-325 MG tablet levETIRAcetam (Keppra) 500 MG [...] (hypertension) (CMS/HCC) Hypercholesteremia (CMS/HCC) Hyperlipidemia (CMS/HCC) Hypertension ([facility]/HCC) Hypertensive disorder ([facility]/HCC) 06/10/2014 Macular degeneration Malignant neoplasm of skin 10/17/2012 Melanoma ([facility]/HCC) Melanoma in situ of face ([facility]/HCC) 02/15/2024 Mitral valve disorder 09/17/2013 MILD (ECHO 05/09) Obstructive sleep apnea syndrome 09/17/2013 Paroxysmal atrial fibrillation ([facility] 09/17/2013 PAF; CHADS2 SCORE 2 (HTN, DM). ON COUMADIN. 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 Intraocular lens (IOL) [...] decreased vision or metamorphopsia. documented in this [facility]02-08-2025 History of Present illness Narrative* Augustine Freitas [...] patient back as needed documented in this [facility]02-08-2025 History of Present illness Narrative* Augustine Freitas [...] patient back as needed documented in this [facility]02-04-2025 History of Present illness Narrative* Augustine Freitas [...] given wound instructions. He is leaving for [place] for the remainder of the winter. I willsee him on a returns in December documented in this [facility]01-22-2025 History of Present illness Narrative* Augustine Freitas [...] esophagitis 03/15/2022 GERD (gastroesophageal reflux disease) Glaucoma ([facility]) 09/06/2023 Glycosuria 02/15/2024 Glycosuria 09/06/2023 HTN (hypertension) ([facility]) Hypercholesteremia ([facility]) Hyperlipidemia ([facility]) Hypertension ([facility]) Hypertensive disorder ([facility]) 06/10/2014 Macular degeneration Malignant neoplasm of skin 10/17/2012 Melanoma ([facility]) Melanoma in situ of face ([facility]) 02/15/2024 Mitral valve disorder 09/17/2013 MILD (ECHO 8/14) Obstructive sleep apnea syndrome 09/17/2013 Paroxysmal atrial fibrillation ([facility]) 09/17/2013 PAF; CHADS2 SCORE 2 (HTN, DM). ON COUMADIN. 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 01/28/2024 Stage 3a chronic kidney disease (HCC) ([facility]) 03/15/2022 Subdural hematoma ([facility]) 2023 Type 2 diabetes mellitus without complication, without long-term current use of insulin ([facility]) 10/17/2012 Current Outpatient Medications: acetaminophen (Tylenol) 500 [...] MG capsule, , Disp: , Rfl: HYDROcodone-acetaminophen (Uvalda) 7.5-325 MG tablet, , Disp: , Rfl: [...] ERCP x2 FINGER AMPUTATION Left ring finger MO ARTHROSCOPY KNEE DIAGNOSTIC W/WO SYNOVIAL BX SPX [...] Strain: Low Risk (01/24/2024) [facility] from [facility] [facility] [place], [facility] [place] Overall Financial Resource Strain (CARDIA) Difficulty of Paying Living Expenses: Not hard at all Food Insecurity: No Food Insecurity (01/24/2024) Received from [facility] [place], [facility] Hunger Vital Sign Within the past 12 months, you worried that your food would run out before you got the money to buymore.: Never true Ran Out of Food in the Last Year: Not on file Transportation Needs: No Transportation Needs (01/24/2024) Received from [facility] [place], [facility] Transportation In the past 12 months, has lack of transportation kept you from medical appointments or from getting medications?: No Lack of Transportation (Non-Medical): Not on file Physical Activity: Not on file Stress: Not on file Social Connections: Not on file Intimate Partner Violence: Unknown (01/24/2024) Re[facility] from [facility] [place], [facility] [place] Humiliation, Afraid, Rape, and Kick questionnaire Fear of Current or Ex-Partner: No Emotionally Abused: Not on file Physically Abused: Not on file Sexually Abused: Not on file Housing Stability: Low Risk (01/24/2024) Received from [facility] [place], [facility] Housing Stability Vital Sign Unable to Pay [...] has consented to proceed. documented in this encounterSullivan County Memorial [id number] History of Present illness Narrative* Christin Bolton [...] meds, nerve injury, and recurrence were addressed.) [place] Protocol: Procedure explained and questions answered to [...] sodium bicarbonate Procedure Details: Biopsy accession number: [id number] Biopsy lab: [facility] Date of biopsy: 10/04/2024 Frozen section biopsy [...] days Next visit: 01/03/2025 documented in this encounterSullivan County Memorial [id number] History of Present illness Narrative* Kingston Coppola DO - 10/03/2024 8:00 AM EST Chief Complaint Patient presents with PLMD Patient is here today for follow-up of CUBA and PLMD. Subjective Tito Blackman Michjames, 79 y.o., male, being seen today for [...] of Klonopin and will be leaving for [place] in October and not coming back untilApr. He would like to get a 90 day to cover the time he is gone. 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 Mohs 10/21/2022 COVID-19 vaccine administered x 2 ([employer]) Diabetes ([facility]) Diverticulosis of colon 10/17/2012 Family history of malignant neoplasm of skin 02/15/2024 Family history of malignant neoplasm of skin 09/06/2023 Gastroesophageal reflux disease without esophagitis 03/15/2022 GERD (gastroesophageal reflux disease) Glaucoma ([facility]) 09/06/2023 Glycosuria 02/15/2024 Glycosuria 09/06/2023 HTN (hypertension) ([facility]) Hypercholesteremia ([facility]) Hyperlipidemia ([facility]) Hypertension ([facility]) Hypertensive disorder ([facility]) 06/10/2014 Macular degeneration Malignant neoplasm of skin 10/17/2012 Melanoma ([facility]) Melanoma in situ of face ([facility]) 02/15/2024 Mitral valve disorder 09/17/2013 MILD (ECHO 05/09) Obstructive sleep apnea syndrome 09/17/2013 Paroxysmal atrial fibrillation ([facility]) 09/17/2013 PAF; CHADS2 SCORE 2 (HTN, DM). ON COUMADIN. 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 01/28/2024 Stage 3a chronic kidney disease (HCC) ([facility]) 03/15/2022 Subdural hematoma ([facility]) 2023 Type 2 diabetes mellitus without complication, without long-term current use of insulin ([facility]) 10/17/2012 Past Surgical History: Procedure Laterality Date CARDIOVERSION CHOLECYSTECTOMY 2012 COLONOSCOPY 2010 ERCP x2 FINGER AMPUTATION Left ring finger MO ARTHROSCOPY KNEE DIAGNOSTIC W/WO SYNOVIAL BX SPX [...] that also He will be going to [place] once again this October for 1 1/2 [...] was counseled on the risks of stroke, HI, and sudden with CUBA, along with the [...] to clinic: 3 months documented in this encounterSullivan County Memorial [id number] NoteRight Eye Quality was good. Scan locations included subfoveal. Progression has been stable. Findings include abnormal foveal contour, subretinal scarring. Left Eye Quality was good. Scan locations included subfoveal. Progression has been stable. Findings include abnormal foveal contour. Notes Macular Volume Loss both eyes (OU)S[facility] Memorial [id number] History of Present illness Narrative* Jose R [...] now given soon to be trip to [place] as well as side effects from last treatment in August. He was provided an Amsler grid to check daily and note any changes to this. He understands to get jacob of his retina specialist in [place] if there was a change. Will see [...] artificial tears were recommended. documented in this encounterSullivan County Memorial HospitalIztjwddvip18-81-4784 Evaluation note* Diagnosis Onset Date Resolution Status Admit Date Anemia acute August 21, 2024 9:08am Atrial fibrillation acute Novem 2023 9:08am Chronic kidney disease acute No vember 2023 9:08am GERD (gastroesophageal reflu x disease) acute August 21, 024 9:08am Hypertension acute July 9:08am Obesity acute August 21, 2024 9:08am CUBA (obstructive sleep apnea) acute August 21, 2024 9:08am Type 2 diabetes mellitus wit h hyperglycemia acute August 21, 024 9:08am Atrial fibrillation acute Janua 2024 8:18am Chronic kidney disease acute Ja nuary 2024 8:18am GERD (gastroesophageal reflu x disease) acute October 10 8:18am Hypertension acute September 8:18am Obesity acute October 10, 2024 8:18am CUBA (obstructive sleep apnea) acute October 10, 2024 8:18am Type 2 diabetes mellitus wit h hyperglycemia acute October 10 8:18am [facility] Work Phone: 1(862) 629-981411-26-2024 Evaluation note* Diagnosis Onset Date Resolution Status [...] October 10, 2024 8:18am Atrial fibrillation acute Jan2024 8:18am Chronic kidney disease acute Ja nuary 2024 8:18am Diabetes mellitus with diabe tic polyneuropathy acute October 10 8:18am GERD (gastroesophageal reflu x disease) acute October 10 8:18am Hypertension acute September 8:18am Obesity acute October 10, 2024 8:18am CUBA (obstructive sleep apnea) acute October 10, 2024 8:18am Type 2 diabetes mellitus wit h hyperglycemia acute October 10 8:18am [facility] Work Phone: 1(488) 971-322110-16-2024 NoteUT Cardiology - [facility] Chief Complaint: Thought he had a [...] In April 2019 he presented to the [facility] with atrial fibrillation with [...] not ill-appearing. HENT: Hea (more content not included)...[facility]09-24-2024 History of Present illness Narrative* Osman Shah, DEQUAN-PROMOTIONS PRODUCER - 10/04/2024 2:40 PM EST Images from [...] Next Visit: as scheduled documented in this encounterSullivan County Memorial HospitalAidjvemxdy24-13-5991 History of Present illness Narrative* EDYTA Spence [...] performed by Macario Bui MD Location: Right pentecostal Established patient Lesions: Location: Nose Duration: Two [...] limited to risks of scarring, darker or nurse obgyn pigmentary changes, recurrence, incomplete removal and infection. [...] 7. Seborrheic keratosis, inflamed Dorsum of Nose [place] and brown stuck on verrucous scaly papule [...] limited to risks of scarring, darker or nurse obgyn pigmentary changes, recurrence, incomplete removal and infection. [...] History of malignant melanoma of skin Right Rastafarian No evidence of recurrence at melanoma scar. [...] 6 months, skin check documented in this encounterSullivan County Memorial [id number] NoteRight Eye Quality was good. Scan locations included subfoveal. Progression has been stable. Findings include abnormal foveal contour. Left Eye Quality was good. Scan locations included subfoveal. Progression has been stable. Findings include abnormal foveal contour. Notes Macular Volume Loss both eyes (OU). [facility] HospitalVfqgerahig95-33-8312 History of Present illness Narrative* Jose R [...] now given soon to be trip to [place] as well as side effects from last treatment in August. He was provided an Amsler grid to check daily and note any changes to this. He understands to get ahold of his retina specialist in [place] if there was a change. Will see [...] artificial tears were recommended. documented in this [facility]02-05-2024 Evaluation note* Encounter Date Diagnosis Assessment [...] are maintaining regular scheduled appts with their field aide. Scheduled for LAAO procedure but postponed until spring. Fall precautions. Oct, Obstructive sleep apnea (ICD-10 - G47.33) Auto CPAP 10-15, Facial Mask This patient is aware of the benefits associated with CUBA: With continued use, the patient reduces the risk for HI, CVA, HTN, cardiac dysrhythmias and sudden cardiac deaths.The patient is also aware of the association between CUBA and morning headaches, daytime somnolence, fatigue and obesity, which also has been improved with continued use.The patient is compliant with treatment, wearing the equipment every night for greater than 4 hours.The patient is instructed to continue use of the CPAP for CUBA treatment. 05 Feb, 2024 Gastro-esophageal reflux disease with esophagitis, without bleeding [...] Exercise w/ goal of 10% weight loss [facility] Other 02-02-2024 NoteRight Eye Quality was good. Scan locations included subfoveal. Progression has been stable. Findings include abnormal foveal contour, disciform scar. Left Eye Quality was good. Scan locations included subfoveal. Progression has been stable. Findings include normal observations.[facility] Memorial HospitalNesbjlsmbe19-68-9965 History of Present illness Narrative* Jose R [...] now given soon to be trip to [place] as well as side effects from last treatment in August. He was provided an Amsler grid to check daily and note any changes to this. He understands to get ahsanta of his retina specialist in [place] if there was a change. Will see [...] artificial tears were recommended. documented in this encounterSullivan County Memorial HospitalZsvdglklwr18-88-4450 History of Present illness Narrative* Shannen Chahal - 03/16/2023 11:20 AM EDT Ortho Nurse - Established Patient Intake Room#: 5 Date: 03/16/2023 11:20 AM Patient: Tito Goncalves MR#: [id number] : 1945 Age: 78 y.o. 1yr R [...] Laterality: Right; Surgeon: Pastor Bedoya MD; Location: [facility] OR REVISION ARTHROPLASTY KNEE Left 02/22/2017 [...] allergy, and sulfa antibiotics. * Azul Rachel APRN-PROMOTIONS PRODUCER - 03/16/2023 11:20 AM EDT HPI: Patient [...] have reviewed the findings of the clinical director of academic support and agree with their assessment. Ortho Nurse - Established Patient Intake Room#: 5 Date: 03/16/2023 11:20 AM Patient: Tito Goncalves MR#: [id number] : 1945 Age: 78 y.o. 1yr R [...] benign Hyperlipidemia OA (osteoarthritis) of knee bilat UCBA (obstructive sleep apnea) RA (rheumatoid arthritis) Past [...] allergy, and sulfa antibiotics. documented in this [facility]04-29-2023 Evaluation note* Encounter Date Diagnosis Assessment Notes Treatment Notes Treatment Clinical Notes Dec, Subarachnoid hemorrhage (ICD-10 - I60.9) [facility] Other 04-12-2023 Evaluation note* Encounter Date Diagnosis [...] are maintaining regular scheduled appts with their field aide. Dec, Obstructive sleep apnea (ICD-10 - G47.33) Auto CPAP 10-15, Facial Mask This patient is aware of the benefits associated with CUBA: With continued use, the patient reduces the risk for HI, CVA, HTN, cardiac dysrhythmias and sudden cardiac [...] and weight loss. Improved control of BS [facility] Other 02-15-2023 Evaluation note* Encounter Date Diagnosis Assessment Notes Treatment Notes Treatment Clinical Notes Oct, Cholecystitis (ICD-1 0 - K81.9) [facility] Other 02-14-2023 NotePatient Education Material [facility] FOLLOW UP CARE ? [...] office at: THANK YOU FOR CHOOSING [facility] FOR YOUR PROCEDURE! [phone] This information is not intended to replace advice given to you by your health care provider. Make sure you discuss any questions you have with your health care provider. ExitCare? Patient Information ?2016 [employer]. Custom Education added 09/2018[facility]02-14-2023 NoteNursing Discharge Summary Entered On: 11/09/2022 [...] Daughter Sariah Schreiber RN R 11/09/2022 8:43 [facility]* Encounter Date Diagnosis Assessment [...] use, the patient reduces the risk for HI, CVA, HTN, cardiac dysrhythmias and sudden cardiac [...] INR being monitored, no bleeding complications noted [facility] Other 10-13-2022 History of Present illness Narrative* Luis Wang LPN - 07/08/2022 11:20 AM EDT Ortho Nurse - Established Patient Intake Room#: 2 4 month Right TKA, some pain of 1-2 when weed eating, going great Date: 07/08/2022 11:51 AM Patient: Tito Goncalves MR#: [id number] : 1945 Age: 77 y.o. Referring Physician: [...] have reviewed the findings of the clinical director of academic support and agree with their assessment. Ortho Nurse - Established Patient Intake Room#: 2 4 month Right TKA, some pain of 1-2 when weed eating, going great Date: 07/08/2022 11:51 AM Patient: Tito Goncalves MR#: [id number] : 1945 Age: 77 y.o. Referring Physician: [...] allergy, and sulfa antibiotics. documented in this encounterMorrow County Hospital08-08-2022 Hospital Discharge instructions Patient Education 05/03/2022 [...] urethra. Follow these instructions at home: Take ecmk-cws-ncypduu and prescription medicines only as told by [...] 09/12/2006 Document Revised: 08/07/2019 Document Reviewed: 10/17/2017 [employer] Patient Education 2020 [employer]. Follow Up Care 04/27/2021 11:05:10 With:GAGE UMANZOR, Mc Blackman, URL Address: [facility] [address] , [place] [address]- [phone] When: Unknown Comments:KIM [facility] 07-14-2022 History of Present illness Narrative* Shannen Chahal - 04/08/2022 10:00 AM EDT Ortho Nurse - Established Patient Intake Room#: 5 Date: 04/08/2022 9:50 AM Patient: Tito Goncalves MR#: [id number] : 1945 Age: 77 y.o. 3wk S/P [...] allergy, and sulfa antibiotics. * Azul Rachel, TOOL AND 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 - 04/08/2022 10:00 AM EDT HPI: Tito [...] roller. All pertinent portions of the clinical director of academic support documentation was reviewed and agree. EDYTA Ayala I have reviewed the findings of the clinical director of academic support and agree with their assessment. EDYTA Ayala Ortho Nurse - Established Patient Intake Room#: 5 Date: 04/08/2022 9:50 AM Patient: Tito Goncalves MR#: [id number] : 1945 Age: 77 y.o. 3wk S/P [...] allergy, and sulfa antibiotics. documented in this [facility]06-21-2022 Miscellaneous Notes* Nursing Notes - Kirsten Crawford [...] light in reach. * Nursing Notes - Giin Medrano RN - 02/18/2022 1:25 PM EDT 02/18/22 7134 Information Source Information Source patient Contact Information Department Helper Name Gini Medrano RN Case Manager's Living [...] that he plans to return home with [facility]. The patient states that his daughter [...] assist with discharge plans. documented in this [facility]06-21-2022 Note* Nursing Notes - Kirsten Crawford RN - 03/16/2022 3:01 PM EDT Discharge instructions gone over with pt and pt's daughter at this time by Regina GAVIN. Both, verbalize understanding and deny any further questions. Hemovac drain removed at this time, tip intact upon removal, pt tolerated well. [facility]06-21-2022 History of Present illness Narrative* Blanca Princeracken, FORESTRY HUNTER - 03/16/2022 2:21 PM EDT 03/16/22 1421 [...] Transfer Skill: Sit To Stand, Rehab Eval Brus[place] (Sit-Stand Transfers) (mod I) Physical Assist/Nonphysical Assist: Sit/Stand 1 person assist Weight-Bearing Restrictions: Sit/Stand weight-bearing as tolerated Assistive Device For Transfer: Sit/Stand armed chair Gait Skills, PT Eval Level of Brusly: Gait (mod I) Weight-Bearing Restrictions: Gait weight-bearing as tolerated Assistive Device For Transfer: Gait 2 wheeled walker Gait Distance (600ft; patient demonstrates a good quality heel - toe pattern consistently throughtout treatment) Stair Negotiation Brusly Level: Stair Negotiation supervision Physical Assist: Stair [...] 100mg 4.00 Total $ 20.60 Birgit Henriquez (Softball Player) reviewed medications with patient regarding indications, directions [...] Sit to Stand, Rehab Eval Level of Brusly: Sit/Stand contact guard Physical Assist/Nonphysical Assist: Sit/Stand 1 person assist Weight-Bearing Restrictions: Sit/Stand weight-bearing as tolerated Assistive Device for Transfer: Sit/Stand wheeled walker;armed chair Transfer Skill: Stand to Sit, Rehab Eval Level of Brusly: Stand/Sit contact guard Physical Assist/Nonphysical Assist: Stand/Sit [...] Eval) ADL retraining;balance training;transfer training PRIOR LEVEL AM-[facility] Activity Inpatient Short Form Putting on/Taking Off Lower Body Clothing 4 - No Assistance Bathing 4 - No Assistance Toileting 4 - No Assistance Putting on/Taking Off Upper Body Clothing 4 - No Assistance Grooming 4 - No Assistance Eating 4 - No Assistance PRIOR LEVEL AM-[facility] Activity Raw Score 24 [facility] Activity Functional Limitation/Modifier 0.00% Prior Functional Impairment in Daily Activity CURRENT [facility] Daily Activity Inpatient Short Form Putting on/Taking Off Lower Body Clothing 3 - A Little Assistance Bathing 3 - A Little Assistance Toileting 3 - A Little Assistance Putting on/Taking Off Upper Body Clothing 3 - A Little Assistance Grooming 3 - A Little Assistance Eating 4 - No Assistance [facility] Raw Score 19 [facility] Activity Functional Limitation/Modifier 42.80% Currently Impaired [...] initiation of treatment Therapist Information License # [id number] In addition to above, ambulated with CGA using FWW. Reclined in chair at end of session with his call light and personal items placed in reach. Jennifer Saab OTR/L 03/16/2022 * Pato Gutierrez - 03/16/2022 11:46 AM EDT Pharmacy to Dose - Warfarin Note PATIENT: Tito Goncalves Room/Bed: [facility] Desired INR range: 2-3 Indication(s): Atrial Fibrillation Medications: No drug interactions were identified based on the patient's current therapy. Current Diet Status: Regular Recent bleeding/bleeding event: None noted Last labs: INR Date Value Ref Range Status 03/16/2022 1.37 (H) 0.85 - 1.10 Final Comment: 2.0-3.0 THERAPEUTIC RANGE 2.5-3.5 MECHANICAL VALVE RANGE Testing performed at [place], [place] [address] - ALBUMIN Date Value Ref Range Status 03/16/2022 3.3 (L) 3.5 - 5.0 G/dl Final - Plan: An order was placed for Coumadin 7.5 mg today x 1 based on INR = 1.37. A Pharmacist will continue to follow and make dose changes as clinically appropriate. Please contact pharmacy if there are any questions. Signed: Lopez Villafana Phone: [phone] Date/Time: 03/16/2022 11:46 AM * Yashira Valencia, [...] 3/5) LLE WFL Supine to Sit Mobility Brusly Level: Supine->Sit stand-by assist Physical Assist: Supine->Sit (1 person) Bed Features/Set-up: Supine->Sit Head of bed elevated Skilled Rationale Verbal cues;Sequencing Sit to Stand Transfer Brusly Level: Sit->Stand stand-by assist Physical Assist: Sit->Stand (1 person) Assistive Device: Sit->Stand 2 wheeled walker;gait belt Skilled Rationale Verbal cues;Hand placement;Sequencing Stand to Sit Transfer Brusly Level: Stand->Sit stand-by assist Physical Assist: Stand->Sit (1 person) Assistive Device: Stand->Sit 2 wheeled walker;gait belt Skilled Rationale Verbal cues;Hand placement;Sequencing;Controlled descent for sitting Sitting Balance Static Sitting-Level of Assistance Independent Standing Balance Static Standing-Level of Assistance Stand-by assist Dynamic Standing-Level of Assistance Stand-by assist Standing-Balance Support 2 wheeled walker;Gait belt Skilled Rationale Verbal cues;Full extension to upright positioning/posture;Upright gaze/neck extension Gait Assessment Brusly Level: Gait contact guard assist Physical Assist: [...] ARTHROPLASTY KNEE TOTAL Left 06/23/2015 CHOLECYSTECTOMY 2012 ferry terminal agent goals, to be achieved at discharge: 1. [...] (248 lb) 02/08/18 117.9 kg (260 lb) Gentry body weight: 77.6 kg (171 lb 1.9 [...] plan. Patient plans to return home with [facility]. His daughter will be staying with [...] Warfarin and PT/INR management. Questions answered regarding [facility], patient denies any other questions or needs at this time. Referral information with orders for PT/INR faxed to [facility], spoke with staff who confirm start of care for tomorrow. Follow up appointment scheduled for 04/08/22 @ 10:00 am. * Grupo Morgan RP,PharmD - 03/15/2022 6:24 PM EDT Pharmacy to Dose - Warfarin Note PATIENT: Tito Goncalves Room/Bed: [facility] Desired INR range: 2-3 Indication(s): Atrial Fibrillation Last labs: INR Date Value Ref Range Status 03/15/2022 1.36 (H) 0.85 - 1.10 Final Comment: 2.0-3.0 THERAPEUTIC RANGE 2.5-3.5 MECHANICAL VALVE RANGE Testing performed at [place], [place] [address] - ALBUMIN Date Value Ref Range Status 02/18/2022 3.8 3.5 - 5.0 G/dl Final - Plan: An order was placed for 5 mg based on current Home Dosage. A Pharmacist will continue to follow and make dose changes as clinically appropriate. Please contact pharmacy if there are any questions. Signed: Grupo Morgan RPh,PharmD, Pharmacist Phone: [phone] Date/Time: 03/15/2022 6:24 PM * Samantha Miner [...] you require anything further documented in this encounterMorrow [facility] Hospital06-21-2022 Note* Nursing Notes - Dian Roberts [...] anxious to head home and settle in. [facility]06-21-2022 Hospital Discharge instructions* Discharge Instructions* Kirsten [...] days or until therapeutic with results to [facility]. , Contact Office ([phone]) if: > Total Knee ROM < 90 [...] (Honduran) * oxycodone (Honduran) documented in this [facility]06-21-2022 Note* Plan of Care - Regina Rios [...] discharge/transition of care. Outcome: Adequate for Discharge [facility]06-21-2022 Note* Nursing Notes - Kirsten Crawford RN - 03/16/2022 11:39 AM EDT Assessment unchanged from previous by this nurse unless otherwise noted in flowsheet [place] [facility] Narrative* Domenico Ferguson MD - 03/16/2022 8:54 AM EDT Images from the original note were not included. Discharge Summary Name: Tito Goncalves Age: 77 y.o. Birthday: 1945 Admit Date: 03/15/2022 8:10 AM Discharge Date: 03/16/2022 Discharge Time: 03/16/2022 Discharge Unit: [facility] Unit Length of [...] insulin restless leg. Kidney stones, admitted to [facility] for elective rig ht total knee [...] as: COUMADIN STOP taking these medications Glucosamine-Chondroitin 6411-2827 MG/30ML LIQD Follow-up: No follow-up provider specified. Upcoming Appointments (up to five)-Some appointments for [facility] outpatient clinics or diagnostic testing locations are not displayed below Provider Department Dept Phone 04/08/2022 10:00 AM [facility] [phone] Total coordination of discharge care taking greater that 35 minutes documented in this [facility]06-21-2022 Note* Plan of Care - Birgit Thakur [...] Devices: pillows Note: IVÁN Ramirez, Foot pumps [facility]06-21-2022 Note* Nursing Notes - Birgit Thakur RN - 03/16/2022 3:09 AM EDT Assessment remains unchanged unless otherwise noted in flow sheet. Pt denies pain. Neuro/pulses unchanged. New bag of NS hung at this time. Vitals WDL. Pt denies any needs and call light is in reach. [facility]06-20-2022 Note* Nursing Notes - Birgit Thakur RN - 03/15/2022 11:59 PM EDT Assessment remains unchanged unless otherwise noted in flow sheet. Pt denies any pain. Neuro/pulsesunchanged. NS infusing @ 100ml/hr and Ancef administered. Pt denies any needs and call light is in reach. [facility]06-20-2022 Note* Nursing Notes - Birgit Thakur RN - 03/15/2022 8:06 PM EDT RT called at this time due to O2 change from 1.5 to 1L. Pt also has home CPAP/BIPAP device. RT [place]. [facility]06-20-2022 Note* Nursing Notes - Araseli Ron RN - 03/15/2022 5:53 PM EDT Patient tolerating clear liquids at this time, diet advanced per orders. [facility]06-20-2022 Consult note* Domenico Ferguson MD - 03/15/2022 4:10 PM EDT History and Physical Examination 03/15/22 4:10 PM Chief Complaint: Right total knee arthroplasty History of Present Illness: Patient is a 77 y.o. male presents for [facility] for elective right total knee arthroplastyDr. Daryl [...] mg by mouth daily. Historical Provider Glucosamine-Chondroitin 9290-2523 MG/30ML Liquid Take by mouth. Historical Provider [...] 81 mg by mouth daily. 03/04/2022 Glucosamine-Chondroitin 4461-2611 MG/30ML Liquid Take by mouth. Multiple Vitamins-Minerals [...] OT, ST and SW. Domenico Ferguson MD [facility]06-20-2022 Consult note* Domenico Ferguson MD - 03/15/2022 4:10 PM EDT History and Physical Examination 03/15/22 4:10 PM Chief Complaint: Right total knee arthroplasty History of Present Illness: Patient is a 77 y.o. male presents for [facility] for elective right total knee arthroplastyDr. Foster [...] mg by mouth daily. Historical Provider Glucosamine-Chondroitin 6575-0888 MG/30ML Liquid Take by mouth. Historical Provider [...] mg by mouth every evening. 03/14/2022 at 5 ferrous sulfate 325 (65 Fe) MG tablet [...] 81 mg by mouth daily. 03/04/2022 Glucosamine-Chondroitin 3136-6897 MG/30ML Liquid Take by mouth. Multiple Vitamins-Minerals [...] SW. Domenico Ferguson MD [facility]* Nursing Notes - Araseli Ron RN - 03/15/2022 2:26 PM EDT Patient to OR at this time. [facility]06-20-2022 Note* Nursing Notes - Araseli Ron RN - 03/15/2022 11:57 AM EDT Patient assessment unchanged from previous. Patient ambulated to bathroom and voided. Patient denies any needs at this time. Call light in reach. [facility]05-26-2022 Note* Nursing Notes - Gini Medrano RN - 02/18/2022 1:25 PM EDT 02/18/22 1324 Information Source Information Source patient Contact Information Department Helper Name Gini Marcela, software validation engineer's Living Environment Lives With alone Living Arrangements [...] that he plans to return home with [facility]. The patient states that his daughter [...] to follow and assist with discharge plans. [facility]04-28-2022 History of Present illness Narrative* Luis Wang LPN - 2022 1:10 PM EDT Ortho Nurse - Established Patient Intake Room#: 1 Right knee pain of 9, no interventions, falls, or injuries, came in today with left knee pain, left knee revision 2016 Dr Bedoya Date: 2022 1:06 PM Patient: Tito Goncalves MR#: [id number] : 1945 Age: 77 y.o. Referring Physician: [...] a right total knee arthroplasty for optimal senior care management. PHYSICAL EXAM: This is an [...] joint space, subchondral sclerosis, osteophyte formation, and jehf-yx-kaer contact with posterior loosebodies. He has a [...] of limb, and ultimately loss of life. ferry terminal agent expectations, risks and general implant surv ivorship were also discussed. Despite these risks, the patient would like to proceed with surgical planning. Today, we will initiate the pre-surgical process including nasal MRSA screening, scheduling an appointment for [facility] and the potential surgical date, and reviewing [...] Swelling Sulfa Antibiotics Swelling [facility]* Encounter Date Diagnosis Assessment Notes Treatment Notes Treatment Clinical Notes Oct, Choledocholithiasis (ICD-10 - K80.50) Oct, Pancreatic cyst (ICD -10 - K86.2) [facility] Other Evaluation + Plan note No data available for this section [facility] evaluation note* Diagnosis Right knee pain, unspecified chronicity- Primary Pain in prosthetic joint, sequela [facility] Preop testing- Primary Preoperative [...] Hyposmolality and/or hyponatremia [facility] Other Evaluation note* Diagnosis Hx of total knee arthroplasty, right- Primary [facility]* Diagnosis Hx of total knee arthroplasty, right- Primary [facility] noteN/ADept. of Dermatology Evaluation note* Diagnosis Hx of total knee arthroplasty, right- Primary [facility]* Diagnosis 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- Primary Age-related nuclear cataract of both eyes Dry eyes Unspecified tear film insufficiency [facility] Diagnosis Onset Date Resolution Status Atrial fibrillation acute Chronic kidney disease acute GERD (gastroesophageal reflux disease) acute Hemopericardium acute Hypercholesterolemia acute Hypertension acute CUBA (obstructive sleep apnea) acute [facility] Work Phone: Evaluation note* Diagnosis Onset Date Resolution Status Atrial fibrillation acute Chronic kidney disease acute Hemopericardium acute Hypertension acute Obesity acute CUBA (obstructive sleep apnea) acute Cellulitis of right upper extremity noneactive [facility] Work Phone: Evaluation note* Diagnosis Onset Date Resolution Status Atrial fibrillation acute Chronic kidney disease acute Hemopericardium acute Hypertension acute Obesity acute CUBA (obstructive sleep apnea) acute Cellulitis of right upper extremity noneactive Atrial fibrillation acute Chronic kidney disease acute Hypertension acute Obesity acute CUBA (obstructive sleep apnea) acute Type 2 diabetes mellitus with hyperglycemia acute [facility] Work Phone: Evaluation note* Diagnosis Onset Date [...] Type 2 diabetes mellitus with hyperglycemia acute [facility] Work Phone: Evaluation note* Diagnosis Onset Date [...] diabetes mellitus with hyperglycemia acute COVID noneactive [facility] Work Phone: Evaluation note* Diagnosis Onset Date Resolution Status Anemia acute Atrial fibrillation acute Chest pain acute Chronic kidney disease acute Hypertension acute CUBA (obstructive sleep apnea) acute Type 2 diabetes mellitus with hyperglycemia acute Hypertension acute Type 2 diabetes mellitus with hyperglycemia acute COVID noneactive Abrasion of ear canal acute [facility] Work Phone: Evaluation note* Diagnosis PLMD (periodic limb movement disorder)- Primary Periodic limb movement disorder CUBA (obstructive sleep apnea) Obstructive sleep apnea (adult) (pediatric) Daytime hypersomnolence Primary insomnia Persistent disorder of initiating or maintaining sleep Snoring Other dyspnea and respiratory abnormality documented in this encounter [facility] Healthcare[facility]* Diagnosis Onset Date Resolution Status Hypertension acute Type 2 diabetes mellitus with hyperglycemia acute COVID noneactive Abrasion of ear canal acute Atrial fibrillation acute Chronic kidney disease acute Hypertension acute Obesity acute CUBA (obstructive sleep apnea) acute Type 2 diabetes mellitus with hyperglycemia acute [facility] Work Phone: Evaluation note* Diagnosis 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- Primary Age-related nuclear cataract of both eyes Dry eyes Unspecified tear film insufficiency documented in this encounter [facility] HealthcareEvaluation note* Diagnosis 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- Primary Dry eyes Unspecified tear film insufficiency Age-related nuclear cataract of both eyes Type 2 diabetes mellitus without complication, without long-term current use of insulin ([facility] documented in this encounter [facility] HealthcareEvaluation note* Diagnosis Seborrheic keratosis Melanocytic nevus of trunk Benign neoplasm of skin of trunk, except scrotum Lentigines Capillary angioma Nevus, non-neoplastic Telangiectasia of face Actinic keratosis Seborrheic keratosis, inflamed History of malignant melanoma of skin Personal history of malignant melanoma of skin documented in this encounter [facility] HealthcareEvaluation note* Diagnosis CUBA (obstructive sleep apnea)- [...] of nose- Primary documented in this encounter [facility] Healthcare[facility] note* Diagnosis Age-related nuclear cataract of both eyes- Primary documented in this encounter [facility]* Diagnosis Age-related nuclear cataract of both eyes- Primary 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 documented in this encounter [facility] Healthcare[facility] note* Diagnosis Skin cancer of nose- Primary Other malignant neoplasm of skin of other and unspecified parts of face documented in this encounter [facility] note* Diagnosis Melanocytic nevus of [...] h hyperglycemia acute January 09, 2025 9:37am [facility] Work Phone: Evaluation note* Diagnosis Seborrheic keratosis Lentigines Capillary angioma Nevus, non-neoplastic Telangiectasia of face History of malignant melanoma of skin Personal history of malignant melanoma of skin History of basal cell carcinoma Personal history of other malignant neoplasm of skin Melanocytic nevi of trunk Actinic keratosis Neoplasm of unspecified behavior of bone, soft tissue, and skin documented in this encounter [facility] Healthcare[facility] [...] wit h hyperglycemia acute July 12 9:37am [facility] Work Phone: History general Narrative - Reported* Type Description Date Medical History hyperlipidemia Medical History GERD Medical History HTN Medical History a.fib Medical History recurrent choledocholithiasis Surgical History LEFT KNEE Surgical History CHOLECYSTECTOMY 2012 Hospitalization History see above [facility] Other History general Narrative - Reported* Type [...] stone removal 10/2022 Hospitalization History see above [facility] Other History general Narrative - Reported* Type Description Date Medical History Adrenal nodule Medical History Osteoarthritis of right knee Medical History Gastro-esophageal re flux disease with esophagitis, without bleeding Medical History Obstructive sleep apnea Medical History Non-rheumatic mitral regurgitati on Medical History Essential hypertension Medical History Hyperlipidemia, mixed Medical History Stage 3a chronic kidney disease (CKD) Medical History Controlled type 2 diabetes jeremiei bhumi with hyperglycemia Medical History Paroxysmal atrial fibrillation [...] stone removal 10/2022 Hospitalization History see above [facility] Other History general Narrative - Reported* Type [...] History Colonoscopy 2020 Hospitalization History see above [facility] Other Hospital Discharge instructions Additional Instructions 1. Sleep on 2 pillows 2. You may shower late tomorrow afternoon, keep wounds dry and clean 3. Small amount of Vaseline to sutures twice daily 4. Tylenol or Motrin for discomfort 5. See Dr. Freitas in 1 [facility] [employer] Work Phone: Hospital Discharge instructions Additional Instructions sleep on 2 pillows ok to shower tomorrow am, keep wound dry and clean small amount of vasaline to sutures [address] Freitas in 1 [facility] Work Phone: Progress note No data available for this section [facility] reason for referral (narrative)* Name Reason for referral NA NA Dept. of Dermatology Reason for referral (narrative)No reason for referral [facility] Work [facility]: Recriy for visit Narrative* Auth/Cert Specialty Diagnoses / Procedures Referred By Bret chan Referred To Contact Diagnoses Osteoarthritis of right knee, unspecified osteoarthritis type Osteoarthritis of right knee, unspecified osteoarthritis type [M17.11] Procedures MO TOTAL KNEE ARTHROPLASTY ARTHROPLASTY KNEE TOTAL Pastor Bedoya MD [address] [place] [address] Referral ID Status Reason Start Date Expiration Date Visits Re quested Visits Authorized [id number] 02/01/2022 1 1 [employer] Summary Purpose Family History Relationship Condition Age [...] XR KNEE LEFT 3 VIEWS Azul Rachel, TOOL AND 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 [address] [place] [address] Specialty Diagnoses / Procedures Referred By Bret chan Referred To Contact Diagnoses Pain in prosthetic joint, sequela Procedures XR KNEE LEFT 3 VIEWS Pastor Bedoya MD [address] [place] [address] Referral ID Status Reason Start Date Expiration Date V isits Requested Visits Authorized [id number] New Request 2022 02/15/2023 1 1 Specialty Diagnoses / Procedures Referred By Contac t Referred To Contact Diagnoses Right knee pain, unspecified chronicity Procedures XR KNEE RIGHT 4+ VIEWS Pastor Bedoya MD [address] [place] [address] Referral ID Status Reason Start Date Expiration Date V isits Requested Visits Authorized [id number] New Request 01/15/2022 02/09/2023 1 1 Specialty Diagnoses / Procedures Referred By Contac t Referred To Contact Social Work Diagnoses Restless leg syndrome Stage 3a chronic kidney disease S/P total knee arthroplasty, right Paroxysmal atrial fibrillation Type 2 diabetes mellitus without complication, without long-term current use of insulin Domenico Ferguson MD [address] [place] [id number] Referral ID Status Reason Start Date Expiration Date V isits Requested Visits Authorized [id number] New Request 03/16/2022 04/10/2023 1 1 Specialty Diagnoses / Procedures Referred By Contac t Referred To Contact Diagnoses Acute postoperative pain of right knee Samantha Miner [address] [place] [address] Referral ID Status Reason Start Date Expiration Date V isits Requested Visits Authorized [id number] New Request 03/15/2022 04/09/2023 1 1 Scheduling Instructions . Specialty Diagnoses / Procedures Referred By Contac t Referred To Contact Physical Therapy Diagnoses Hx of total knee arthroplasty, right Azul Rachel, TOOL AND 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-TOBI [address] [place] [address] [facility] [address] [place] [address] Referral ID Status Reason Start Date Expiration Date V isits Requested Visits Authorized [id number] New Request 04/08/2022 05/03/2023 1 1 Specialty Diagnoses / Procedures Referred By Contac t Referred To Contact Diagnoses Hx of total knee arthroplasty, right Procedures XR KNEE RIGHT 3 VIEWS Azul Rachel APRN-CNP [address] [place] [address] Referral ID Status Reason Start Date Expiration Date V isits Requested Visits Authorized [id number] New Request 03/31/2022 04/25/2023 1 1 Specialty Diagnoses / Procedures Referred By Contac t Referred To Contact Diagnoses Hx of total knee arthroplasty, right Procedures XR KNEE RIGHT 3 VIEWS Pastor Bedoya MD [address] [place] [address] Referral ID Status Reason Start Date Expiration Date V isits Requested Visits Authorized [id number] New Request 07/02/2022 07/27/2023 1 1 Specialty Diagnoses / Procedures Referred By Contac t Referred To Contact Diagnoses Hx of total knee arthroplasty, right Procedures XR BONE LENGTH STUDY Pastor Bedoya MD [address] [place] [id number] Referral ID Status Reason Start Date Expiration Date V isits Requested Visits Authorized [id number] New Request 07/02/2022 07/27/2023 1 1 Referral ID Status Reason Start Date Expiration Date V isits Requested Visits Authorized [id number] New Request 03/15/2023 04/08/2024 1 1 History [...] have reviewed the findings of the clinical director of academic support and agree with their assessment. Ortho Nurse Established Patient Intake Room#: 5 Date: 03/20/2020 11:10 AM Patient: Tito Goncalves MR#: [id number] : 1945 Age: 75 y.o. 3 yr [...] 03/20/2020 11:10 AM Patient: Tito Goncalves MR#: [id number] : 1945 Age: 75 y.o. 3 yr [...] wound scalp wound 4 month follow up TB follow up, chest pain Reason for Visit [...] follow up TBH follow up, chest pain [phone] sinus problems Reason for Visit Atrial fibrillation Chronic kidney disease Hypertension Obesity CUBA (obstructive sleep apnea) Type 2 diabetes mellitus with hyperglycemia Anemia Atrial fibrillation Chest pain Chronic kidney disease Hypertension CUBA (obstructive sleep apnea) Type 2 diabetes mellitus with hyperglycemia Hypertension Type 2 diabetes mellitus with hyperglycemia COVID Chief Complaint TB follow up, chest pain [phone] sinus problems Rt ear pain Reason for Visit Anemia Atrial fibrillation Chest pain Chronic kidney disease Hypertension CUBA (obstructive sleep apnea) Type 2 diabetes mellitus with hyperglycemia Hypertension Type 2 diabetes mellitus with hyperglycemia COVID Abrasion of ear canal Chief Complaint [phone] sinus p roblems Rt ear pain wellness [...] with hyperglyce olga April 02, 2025 10:09am Chief Complaint Admit Date Wellness July 12, [...] Type 2 diabetes mellitus with hyperglyce olga July 12, 2025 9:37am Additional Source Comments (unrecognized sect ion and content) No Status Records FoundNo Status Records FoundNo Status Records FoundNo Status Records FoundNo Status Records FoundNo Status Records FoundNo Status Records FoundNo Status Records FoundNo Status Records FoundNo Status Records FoundNo Status Records FoundNo Status Records Found INFORMATION SOURCE (unrecogn ized section and content) DATE CREATED AUTHOR 03/21/2018 [facility] DATE CREATED AUTHOR AUTHOR'S ORGANIZ ATION 06/15/2019 [facility] DATE CREATED AUTHOR AUTHOR'S ORGANIZ ATION 03/25/2022 [facility] DATE CREATED AUTHOR AUTHOR'S ORGANIZ ATION 05/04/2022 [facility] DATE CREATED AUTHOR AUTHOR'S ORGANIZ ATION 10/04/2022 [facility] DATE CREATED AUTHOR AUTHOR'S ORGANIZ ATION 02/02/2023 [facility] DATE CREATED AUTHOR AUTHOR'S ORGANIZ ATION 03/05/2023 [facility] DATE CREATED AUTHOR AUTHOR'S ORGANIZ ATION 03/20/2023 [facility] DATE CREATED AUTHOR AUTHOR'S ORGANIZ ATION 07/12/2023 [facility] DATE CREATED AUTHOR AUTHOR'S ORGANIZ ATION 11/04/2024 [facility] DATE CREATED AUTHOR AUTHOR'S ORGANIZ ATION 06/30/2025 [facility] DATE CREATED AUTHOR AUTHOR'S ORGANIZ ATION 07/06/2025 [facility] EPIC Reason for Visit (unrecogniz ed section and content) Reason Comments Follow-up Status Reason Specialty Diagnoses / Procedures Referred By Contact Referred To Contact New Request Diagnoses History of revision of total replacement of left knee joint Procedures XR KNEE LEFT 3 VIEWS Azul Rachel, TOOL AND 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 [address] [place] [address] Reason Comments Pain Specialty Diagnoses / Procedures Referred By Contac t Referred To Contact Diagnoses Pain in prosthetic joint, sequela Procedures XR KNEE LEFT 3 VIEWS Pastor Bedoya MD [address] [place] [id number] Referral ID Status Reason Start Date Expiration Date V isits Requested Visits Authorized [id number] New Request 2022 02/15/2023 1 1 Specialty Diagnoses / Procedures Referred By Contac t Referred To Contact Diagnoses Right knee pain, unspecified chronicity Procedures XR KNEE RIGHT 4+ VIEWS Pastor Bedoya MD [address] [place] [address] Referral ID Status Reason Start Date Expiration Date V isits Requested Visits Authorized [id number] New Request 01/15/2022 02/09/2023 1 1 Specialty Diagnoses / Procedures Referred By Contac t Referred To Contact Diagnoses Hx of total knee arthroplasty, right Procedures XR KNEE RIGHT 3 VIEWS Azul Rachel, [employer]OL AND 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 [address] [place] [address] Referral ID Status Reason Start Date Expiration Date V isits Requested Visits Authorized [id number] New Request 03/31/2022 04/25/2023 1 1 Reason Comments Post Op Visit Specialty Diagnoses / Procedures Referred By Contac t Referred To Contact Diagnoses Hx of total knee arthroplasty, right Procedures XR KNEE RIGHT 3 VIEWS Pastor Bedoya MD [address] [place] [address] Referral ID Status Reason Start Date Expiration Date V isits Requested Visits Authorized [id number] New Request 07/02/2022 07/27/2023 1 1 Referral ID Status Reason Start Date Expiration Date V isits Requested Visits Authorized [id number] New Request 03/15/2023 04/08/2024 1 1 Reason [...] Status: Active Member Role Status Dates Augustine Isaías DO Primary Care Provide r, Attending Provider Active Start: April 18, 2024 Team Status: Inactive Member Role Status Dates Augustine Metz DO Primary Care Provide r, Attending Provider Active Start: May 16, 2024 End: May 16, 2024 Team Status: Inactive Member Role Status Dates Augustine Metz DO Primary Care Provider Active Start: June 04, 2024 End: June 04, 2024 Blanca Lay APRN PASSEMENTERIE WORKER-C Attending Provider Active Start: May End: June [...] February 27, 2024 End: February 27, 2024 Bulb Grader Relationship Specialty Start Date End Date Augustine Metz DO [address] [place] [address] PCP - General Internal Medicine 01/24/17 Bulb Grader Relationship Specialty Start Date End Date Augustine Metz DO [address] [place] [address] PCP - General Internal Medicine 01/24/17 Bulb Grader Relationship Specialty Start Date End Date Augustine Metz DO [address] [place] [address] PCP - General Internal Medicine 01/24/17 Bulb Grader Relationship Specialty Start Date End Date Augustine Metz, DO [address] [place] [facility] [id number] PCP - General Internal Medicine 01/24/17 Bulb Grader Relationship Specialty Start Date End Date Augustine Metz, DO [address] [place] [facility] [place] [address] PCP - General Internal Medicine 01/24/17 Bulb Grader Relationship Specialty Start Date End Date Augustine Metz, DO [address] [place] [facility] [id number] PCP - General Internal Medicine 01/24/17 Bulb Grader Relationship Specialty Start Date End Date Augustine Metz, DO [address] [place] [address] PCP - General Internal Medicine 01/24/17 Bulb Grader Relationship Specialty Start Date End Date IsaíasAugustine [address] [place] [facility] [address] PCP - General Internal Medicine 01/24/17 Bulb Grader Relationship Specialty Start Date End Date Isaías Augustine [address] [place] [facility] [address] PCP - General Internal Medicine 01/24/17 Bulb Grader Relationship Specialty Start Date End Date Augustine Metz MD [address] [place] [phone] PCP - General Internal Medicine 06/02/23 Bulb Grader Relationship Specialty Start Date End Date Augustine Metz MD [address] [place] [phone] PCP - General Internal Medicine 06/02/23 Team [...] January 31, 2024 End: January 31, 2024 Bulb Grader Relationship Specialty Start Date End Date Augustine Metz MD [address] [place] [address] PCP - General Internal Medicine 06/02/23 Christin Bolton MD [address] [place] [address] Referring Physician Dermatology 02/15/24 Augustine Freitas DO [address] [place] [address] Otolaryngology 02/15/24 Bulb Grader Relationship Specialty Start Date End Date Augustine Metz MD [address] [place] [address] PCP - General Internal Medicine 06/02/23 Christin Bolton MD [address] [place] [address] Referring Physician Dermatology 02/15/24 Augustine Freitas DO [address] [place] [address] Otolaryngology 02/15/24 Team Status: Active Member Role Status Dates Augustine Metz DO Primary Care Provide r, Attending Provider Active Start: June 27, 2024 Team Status: Inactive Member Role Status Dates Augustine Metz DO Primary Care Provide r, Attending Provider Active Start: July 09, 2024 End: July 09, 2024 Bulb Grader Relationship Specialty Start Date End Date Augustine Metz MD PCP - General Internal Medicine 06/02/23 Christin Bolton MD [address] [place] [address] Referring Physician Dermatology 02/15/24 Augustine Freitas DO [address] [place] [address] Otolaryngology 02/15/24 Bulb Grader Relationship Specialty Start Date End Date Augustine Metz MD PCP - General Internal Medicine 06/02/23 Christin Bolton MD [address] [place] [address] Referring Physician Dermatology 02/15/24 Augustine Freitas DO [address] [place] [address] Otolaryngology 02/15/24 Bulb Grader Relationship Specialty Start Date End Date Augustine Metz MD [address] [place] [address] PCP - General Internal Medicine 06/02/23 Christin Bolton MD [address] [place] [address] Referring Physician Dermatology 02/15/24 Augustine Freitas DO [address] [place] [address] Otolaryngology 02/15/24 Bulb Grader Relationship Specialty Start Date End Date Augustine Metz MD [address] [place] [address] PCP - General Internal Medicine 06/02/23 Christin Bolton MD [address] [facility] [address] [place] [address] Referring Physician Dermatology 02/15/24 Augustine Freitas DO [address] [place] [address] Otolaryngology 02/15/24 Bulb Grader Relationship Specialty Start Date End Date Augustine Metz MD [address] [place] [address] PCP - General Internal Medicine 06/02/23 Christin Bolton MD [address] [facility] [address] [place] [address] Referring Physician Dermatology 02/15/24 Augustine Freitas DO [address] [place] [address] Otolaryngology 02/15/24 Bulb Grader Relationship Specialty Start Date End Date Augustine Metz MD [address] [place] [address] PCP - General Internal Medicine 06/02/23 Christin Bolton MD [address] [place] [address] Referring Physician Dermatology 02/15/24 Augustine Freitas DO [address] [place] [address] Otolaryngology 02/15/24 Bulb Grader Relationship Specialty Start Date End Date Augustine Metz MD [address] [place] [address] PCP - General Internal Medicine 06/02/23 Christin Bolton MD [address] [place] [address] Referring Physician Dermatology 02/15/24 Augustine Freitas DO [address] [place] [address] Otolaryngology 02/15/24 Bulb Grader Relationship Specialty Start Date End Date Augustine Metz MD [address] [place] [address] PCP - General Internal Medicine 06/02/23 Christin Bolton MD [address] [place] [address] Referring Physician Dermatology 02/15/24 Augustine Freitas DO [address] [place] [address] Otolaryngology 02/15/24 Bulb Grader Relationship Specialty Start Date End Date Augustine Metz MD [address] [place] [address] PCP - General Internal Medicine 06/02/23 Christin Bolton MD [address] [place] [address] Referring Physician Dermatology 02/15/24 Augustine Freitas, DO [address] [place] [address] Otolaryngology 02/15/24 Bulb Grader Relationship Specialty Start Date End Date Augustine Metz MD [address] [place] [address] PCP - General Internal Medicine 06/02/23 Christin Bolton MD [address] [place] [address] Referring Physician Dermatology 02/15/24 Augustine Freitas DO [address] [place] [address] Otolaryngology 02/15/24 Team Status: Active Member Role Status Dates Augustine Mezt DO Primary Care Provide r, Attending Provider Active Start: August 14, 2024 Team Status: Inactive Member Role Status Dates Augustine Metz DO Primary Care Provide r, Attending Provider Active Start: August 21, 2024 End: August 21, 2024 Team Status: Inactive Member Role Status Dates Augustine Metz DO Primary Care Provide r, Attending Provider Active Start: October 10, 2024 End: October 10, 2024 Bulb Grader Relationship Specialty Start Date End Date Augutsine Metz MD [address] [place] [phone] PCP - General Internal Medicine 06/02/23 Christin Bolton MD [address] [place] [address] Referring Physician Dermatology 02/15/24 Augustine Freitas DO [address] [place] [address] Otolaryngology 02/15/24 Bulb Grader Relationship Specialty Start Date End Date Augustine Metz MD [address] [place] [address] PCP - General Internal Medicine 06/02/23 Christin Bolton MD [address] [place] [address] Referring Physician Dermatology 02/15/24 Augustine Freitas DO [address] [place] [address] Otolaryngology 02/15/24 Bulb Grader Relationship Specialty Start Date End Date Augustine Metz MD [address] [place] [address] PCP - General Internal Medicine 06/02/23 Christin Bolton MD [address] [place] [address] Referring Physician Dermatology 02/15/24 Augustine Freitas DO [address] [place] [address] Otolaryngology 02/15/24 Bulb Grader Relationship Specialty Start Date End Date Augustine Metz MD [address] [place] [facility] [address] PCP - General Internal Medicine 06/02/23 Christin Bolton MD [address] [place] [address] Referring Physician Dermatology 02/15/24 Augustine Freitas DO [address] [place] [address] Otolaryngology 02/15/24 Paulina Barboza, OD [address] [facility] [place] [address] Referring Physician Optometry 12/28/24 Bulb Grader Relationship Specialty Start Date End Date Augustine Metz MD [address] [place] [facility] [address] PCP - General Internal Medicine 06/02/23 Christin Bolton MD [address] [place] [address] Referring Physician Dermatology 02/15/24 Augustine Freitas DO [address] [place] [address] Otolaryngology 02/15/24 Paulina Barboza OD [address] [facility] [address] Referring Physician Optometry 12/28/24 Bulb Grader Relationship Specialty Start Date End Date Augustine Metz MD [address] [place] [facility] [place] [address] PCP - General Internal Medicine 06/02/23 Christin Bolton MD [address] [place] [address] Referring Physician Dermatology 02/15/24 Augustine Freitas DO [address] [place] [address] Otolaryngology 02/15/24 Paulina Barboza OD [address] [place] [address], [place] [address] Referring Physician Optometry 12/28/24 Bulb Grader Relationship Specialty Start Date End Date Augustine Metz MD [address] [facility] [address] PCP - General Internal Medicine 06/02/23 Christin Bolton MD [address] [place] [address] Referring Physician Dermatology 02/15/24 Augustine Freitas DO [address] [place] [address] Otolaryngology 02/15/24 Paulina Barboza, SHARDA [address] [facility] [place] [address] Referring Physician Optometry 12/28/24 Bulb Grader Relationship Specialty Start Date End Date Augustine Metz MD [address] [place] [address] PCP - General Internal Medicine 06/02/23 Christin Bolton MD [address] [place] [address] Referring Physician Dermatology 02/15/24 Augustine Freitas, DO [address] [place] [address] Otolaryngology 02/15/24 Paulina Barboza OD [address] [place] [address] Referring Physician Optometry 12/28/24 Team Status: Inactive [...] Active Start: Zohaib moore 2024 Team Status: Active Member Role Status Dates Augustine Metz DO Primary Care Provider Active Start: February 07, 2025 Lisa Lacey CMA Attending Provider Active Start: February 07, 2025 Team Status: Active Member Role Status Dates Augustine Metz DO Primary Care Provider Active Start: February 12, 2025 Esther Larson Attending Provider Active Start: Zohaib y 2024 Team Status: Inactive Member Role Status Dates Augustine Metz DO Primary Care Provider Active Start: February 13, 2025 End: February 13, 2025 Augustine Metz DO Attending Provider Active Sta rt: February 13, 2025 End: February 13, 2025 Team Status: Active Member Role Status Dates Augustine Metz DO Primary Care Provider Active Start: February 22, 2025 Augustine Metz , Attending Provider Active Sta rt: February 22, 2025 Team Status: Inactive Member Role Status Dates Augustine Metz DO Primary Care Provider Active Start: April 02, 2025 End: April 02, 2025 Augustine Metz , Attending Provider Active Sta rt: April 02, 2025 End: April 02, 2025 Bulb Grader Relationship Specialty Start Date End Date Augustine Metz DO [address] [place] [address] PCP - General Internal Medicine 06/02/23 Christin Bolton MD [address] [facility] [address] [place] [address] Referring Physician Dermatology 02/15/24 Augustine Freitas DO [address] [place] [address] Otolaryngology 02/15/24 Paulina Barboza OD [address] [place] [address] Referring Physician Optometry 12/28/24 Bulb Grader Relationship Specialty Start Date End Date Augustine Metz DO [address] [place] [address] PCP - General Internal Medicine 06/02/23 Christin Bolton MD [address] [facility] [facility] [facility] [address] [place] [address] Referring Physician Dermatology 02/15/24 Zena Augustine Laure, DO [address] [place] [address] Otolaryngology 02/15/24 Paulina Barboza, OD [address] [place] [address] Referring Physician Optometry 12/28/24 Bulb Grader Relationship Specialty Start Date End Date Augustine Metz DO [address] [place] [address] PCP - General Internal Medicine 06/02/23 Christin Bolton MD [address] [place] [address] Referring Physician Dermatology 02/15/24 Augustine Freitas, DO [address] [place] [place] [address] Otolaryngology 02/15/24 Paulina Barboza OD [address] [place] [address] Referring Physician Optometry 12/28/24 Team Status: Active Member Role/Relationship Status Dates Augustine Metz DO Primary Care Provider Active Team Status: Active Member Role/Relationship Status Dates Augustine Metz DO Primary Care Provider Active Start: May 07, 2025 Augustine Metz DO Attending Provider Active Sta rt: May 07, 2025 Team Status: Active Member Role/Relationship Status Dates Augustine Metz DO Primary Care Provider Active Start: June 26, 2025 Kingston Coppola DO Attending Provider Active Sta rt: June 26, 2025 Team Status: Inactive Member Role/Relationship Status Dates Augustine Metz DO Primary Care Provider Active Start: July 12, 2025 End: July 12, 2025 Augustine Ball , DO Attending Provider Active Sta rt: July 12, 2025 End: July 12, 2025 Scheduled Active and Recently Administ ered [...] Thakur RN) 0309 (Stopped - Provider: Birgit Thakur, RN)0814 ($$New Bag$$ - Provider: Kirsten Crawford, ROMAINE)0845 (Stopped - Provider: Regina Rios RN) clonazePAM [...] RN) 0810 (Given - Provider: Kirsten Crawford, ROMAINE)1700 (Canceled Entry - Provider: System Discharge - [...] to the hypoglycemia management protocol on Ellucid: I-DF-Rdlapcfgtaya Management Protocol insulin regular (HumuLIN R;NovoLIN R) [...] Ron RN) 030 (Given - Provider: Birgit Thakur RN)1448 (Given [...] ROMAINE)2356 (Rate/Dose Verify - Provider: Birgit Thakur, RN) 0310 (Rate/Dose Verify - Provider: Birgit [...] RN)1450 ($$New Bag$$ - Provider: Pankaj Eric APRN-SEED PRODUCTION FIELD SUPERVISOR)1606 (Paused - Provider: Chino Puga CRNA - [...] 2 g, Intravenous, Administer over 30 Minutes, MOTOR VEHICLE REPRESENTATIVE TO PROCEDURE, 1 dose, Starting on Tue03/15/22 at 0849, Until Discontinued, Other, Pre-operative antibiotic, For 15 Minutes, Pre-op/Pre-Proc 1440 (Given - Provider: LambertJESUS Martin) dextrose 10% IV solution 250 mL(Linked Group [...] less than 60 mg/ml. If unresponsive call DIRECTOR PROCESS IMPROVEMENT HYDROmorphone (DILAUDID) injection 0.5 mg 0.5 mg, [...] to the hypoglycemia management protocol on Ellucid: N-KD-Oveidlpxxzdv Management Protocol
And dextrose 10% IV solution [...] less than 60 mg/ml. If unresponsive call DIRECTOR PROCESS IMPROVEMENT
And NOTIFY PHYSICIAN, Blood Glucose LESS THAN 70 mg/dl or greater than 400 mg/dl (CANCELED) Routine, CONTINUOUS, Starting on Tue03/15/22 at 1255, Until Specified
Who to Notify: PASSEMENTERIE WORKER/Physician
For all Blood Glucose LESS THAN 70 mg/dl, or greater than 400 mg/dl notify PASSEMENTERIE WORKER/Physician Goals (unrecognized section and content) Goals may [...] BE BASED ON THE PRIMARY CLINICAL RECORDS. [employer] provides no warranty or guarantee of the accuracy or completeness of information in this document.
--- OUTSIDE RECORDS SUMMARY | 2025-07-14 18:32 | XMS_ITS | Continuity of Care Document ---
Author Organization [facility] Address [address] [place] [address] Phone [phone] Care Team Providers Care Computer Lab Aide Name Role Phone Rudy Kahn DO Care Team Information Information Security Specialist U suzannaailCHUY Hays M.D. Care Team Information Receiv er Unavailable Augustine Frost DO Primary Care Physician Unavail able Allergies and adverse reactions Active Allergies Criticality Reaction Severity Comments Date Penicillin Unable to assess criticality Hives Severe 06/09/2021 Sulfa Antibiotics Unable to assess criticality unknown 06/09/2021 Iodine Unable to assess criticality Anaphylaxis Severe 06/09/2021 Medications Active Medications SIG Qnty Indications Order ing Provider Date [id number] Capsules 1 by mouth three times a day 90caps Chuy Weldon M.D. 06/17/2021 Amlodipine Agptxfeu15ej Tablets Take 1 Tablet By Mouth Once Daily Augustine Frost DO Warfarin Pnwyem7vw Tablets Take 1 & 1 2 (One & One Half) Tablets By Mouth Once Daily Augustine Frost DO Warfarin Sodium7.5mg Tablets Take 1 Tablet By Mouth Once Daily One Day A Week Or as Directed By Clinic Augustine Frost DO Benazepril XDC24bz Tablets Take 1 Tablet By Mouth Once Daily Augustine Frost DO Atorvastatin Zajdefz39ik Tablets Take 1 Tablet By Mouth Once Daily In The Evening Augustine Frost DO Puwlswpfoc5ci Tablets Take 1 To 2 Tablets By Mouth AT Bedtime Unknown Carvedilol6.25mg Tablets Take 1 Tablet By Mouth Twice Daily Augustine Frost DO Trazodone DXG76hu Tablets Take 1 Tablet By Mouth Every Day AT Bedtime Augustine Frost DO Urihkkqhga72ni Capsules DR 1 by mouth every day Unknown Aspirin Adult Low Uvxfljpl54rb Tablets DR 1 by mouth every day Unknown Multi VitaminTablets take 1 tablet by mouth once daily. Unknown Propafenone PCP733of Tablets take 1 tablet by mouth every 8 hours. Unknown Tylenol 500 mg 2 tabs q 8 hrs Unknown CSL DualCom-Sensbeat Covid-19 Gulpxew84tzf/0.3ML Suspension Unknown Glucosamine-Chondroitin Capsules 1 tab by mouth every day as needed Unknown Vital Signs Date Vital Result Comment 06/09/2021 3:41pm Weight 241.00 lb Weight 109.318 kg BP Systolic 113 mmHg BP Diastolic 61 mmHg Heart Rate 66 /min Body Temperature 98.1 F Height 72 inches 6'0 BMI (Body Mass Index) 32.7 kg/m2
--- OUTSIDE RECORDS SUMMARY | 2025-07-14 18:32 | XMS_ITS | Clinical Summary ---
Author Organization [facility] Address [address] [place] [address] Care Team Providers Care Inspector Fabric Name Role Phone Augustine Frost Primary Care Provider [phone] Allergies Active Allergy Reactions Criticality Noted Date [...] tablet by mouth in the morning. Active traZODone (Desyrel) 50 mg tablet Take 1 tablet by mouth at bedtime. Active clonazePAM (KlonoPIN) 1 mg tablet Take 1 mg by mouth in the morning. 3 Active vit A/vit C/vit E/zinc/copper (ICAPS AREDS ORAL) Take 1 chewable tablet by mouth in the morning. Active pantoprazole (ProtoNix) 40 mg EC tablet Take 40 mg by mouth. 4 Active amLODIPine (Norvasc) 10 mg tabletIndication s:Primary hypertension Take 1 tablet (10 mg) by mouth in the morning. 90 tablet 3 5 01/12/20 26 Active carvedilol (Coreg) 12.5 mg tabletIndication s:Essential hypertension TAKE 1 TABLET BY MOUTH EVERY MORNING WITH BREAKFAST AND TAKE ONE TABLET BY MOUTH EVERY EVENING WITH EVENING MEAL 90 tablet 3 5 02/27/20 26 Active glimepiride (Amaryl) 1 mg tablet Take 1 mg by mouth before breakfast. 5 Active levothyroxine (Synthroid, Levoxyl) 75 mcg tablet Take 75 mcg by mouth in the morning. Active omeprazole (PriLOSEC) [address] capsule Take 1 capsule every day by oral route for 90 days. 06/25/20 25 Discontin ued(Med List Cleanup) Active Problems Problem Noted Date Diagnosed Date [...] Encounters Date Type Department Care Team Description 06/25/2025 11:20 AM EDT Office Visit [facility] [address] [place] [address] Bianka Paul CNP Left arm pain (Primary Dx); Paroxysmal atrial fibrillation (CMS/HCC); Presence of Amulet left atrial appendage closure device; Primary hypertension; Mitral valve disorder; Ascending aorta dilatation 04/24/2025 Telephone [facility] [address] [place] [address] Delmis Mcghee MA from Last 3 Months Family History Medical [...] drink = 0.6 oz pur e alcohol) [facility] Utilities Answer Date Recorded In the past 12 months has e electric, gas, oil, or water company [...] place to sleep or slept in a detention (including now)? No 01/24/2024 Hunger Vital Sign [...] Sign Reading Time Taken Comments Blood Pressure 140/66 06/25/2025 12:00 PM EDT Pulse 52 06/25/2025 12:00 PM EDT Temperature 36.8 C (98.2 F) 01/29/2024 12:15 PM EDT Respiratory Rate 18 04/12/2024 2:27 PM EDT Oxygen Saturation 97% 06/25/2025 12:00 PM EDT Inhaled Oxygen Concentration - - Weight 108 kg (237 lb) 06/25/2025 12:00 PM EDT Height 182.9 cm (6') 06/25/2025 12:00 PM EDT Body Mass Index 32.14 06/25/2025 12:00 PM EDT Plan of Treatment Health Maintenance Due Date Last Done Comments Medicare Annual Wellness (AWV) 1945 Diabetes: Retinopathy Screening 01/22/1956 Depression Screening 1958 Diabetes: Urine Protein Screening 1965 Adult Tetanus 01/22/1968 Fall Risk Screening 2011 Pneumococcal Vaccine: 50+ Years (2 of 2 - PCV) 12/25/2014 12/25/2013 Diabetes: Hemoglobin A1C 04/30/2024 01/29/2024 COVID-19 Vaccine ( season) 2025 08/21/2024, 12/27/2023, 06/21/2023, Additional history exists Influenza [...] this topic Medical Devices Implanted Type Area Investment Accounting Clerk Device Identifier Shelf Expiration Date Model / Serial / Lot Lacho Franklin Ww,28mm - [id number] Implanted:Qty: 1 on 01/24/2024 by Darien Crane MD at [facility] Device [employer] [id number] 06/25/2027 9- [id number] / / [id number] Procedures Procedure Name Priority Date/Time Associated Diagnosis Comments ECG 12 LEAD UNIT PERFORMED Routine 06/25/2025 12:12 PM EDT Left arm pain HEMOGLOBIN A1C Routine 01/29/2024 6:03 AM EDT from Last 3 Months or Most Recently Relevant to Health Maintenance Results * ECG 12 lead unit performed (06/25/2025 12:12 PM EDT) Bianka Paul PRODUCTION ASSEMBLY OPERATOR ECG ORDERABLES Final Result * (ABNORMAL) Hemoglobin A1c (01/29/2024 6:03 AM EDT) Hemoglobin A1C 7.3(H) 4.0 - 6.0 % 01/29/2024 3:07 PM EDT [facility] Estimated Average Glucose 163 mg/dL 01/29/2024 3:07 PM EDT [facility] Blood Venous blood specimen / Unknown Arterial Line / Unknown 01/29/2024 6:03 AM EDT 01/29/2024 6:25 AM EDT Ann Paul PRODUCTION ASSEMBLY OPERATOR LAB BLOOD ORDERABLES Final Res ult [facility] [address] [place] [address] from Last 3 Months or Most Recently Relevant to Health Maintenance Insurance MEDICARE [employer] [place] Advance Directives * Full Code (Latest Code Status on File) Date Activated Date Inactivated Comments 01/24/2024 10:50 AM 01/29/2024 5:08 PM Care Teams Inspector Fabric Relationship Specialty Start Date End Date Augustine Frost DO [address] [place] [address] PCP - General 07/06/22
--- OUTSIDE RECORDS SUMMARY | 2025-07-14 18:32 | XMS_ITS | Encounter Summary ---
Author Organization [facility] Address [address] [facility] [place] [address] Care Team Providers Care Datacap Developer Name Role Phone SantoshAugustine James MADDEN Primary Care Provider [phone] Donte Montenegro MD Unavailable Unavailable PatienceAugustine quesada Unavailable [phone] Paulina Barboza OD Unavailable Encounter Details Date Type Department Care Team (Late st Contact Info) Description 07/05/2025 Telephone [facility] [place] [facility] [address] [phone] Amberly Sims LPN Social History Tobacco Use Types Packs/Day Years [...] on file documented as of this encounter Miscellaneous Notes * Telephone Encounter - Amberly Cao LPN - 07/05/2025 9:20 AM EDT T/C from patient questioning if he should hold his Efudex treatment until he gets back from vacation. Patient is leaving for [place] for two weeks. Patient was informed he can hold treatment until he returns from [place] as he will have to avoid directsun exposure while on treatment. He voiced understanding and was thankful for the return call. documented in this encounter Plan of Treatment Upcoming Encounters Date Type Department Care Team (Late st Contact Info) Description 07/19/2025 9:00 AM EDT Office Visit [facility] [address] [place] [phone] Lamin Wynne DO [address] [place] [address] 08/19/2025 8:30 AM EST Office Visit [facility] [place] [facility] [address] [place] [address] Meaghan Torres MD [address] [place] [address] 01/02/2026 8:45 AM EDT Office Visit [facility] [place] [facility] [address] [place] [address] Meaghan Torres MD [address] [place] [address] documented as of this encounter Visit Diagnoses Not on filedocumented in this encounter Care Teams Datacap Developer Relationship Specialty Start Date End Date Augustine Frost DO [address] [place] [phone] PCP - General Internal Medicine 06/02/23 Donte Montenegro MD [address] [place] [address] Referring Physician Dermatology 02/15/24 Augustine Freitas DO [address] [place] [address] Otolaryngology 02/15/24 Paulina Barboza OD [address] [place] [address] Referring Physician Optometry 12/28/24 documented as of this encounter
--- OUTSIDE RECORDS SUMMARY | 2025-07-14 18:32 | XMS_ITS | Clinical Summary ---
Author Organization [facility] Healthcare Address [address] [place] [address] Care Team Providers Care Pet Adoption Counselor Name Role Phone Augustine Frost DO Primary Care Provider [phone] Donte Montenegro MD Unavailable Unavailable Augustine Freitas DO Unavailable [phone] Paulina Barboza OD Unavailable Allergies Active Allergy [...] 1 tablet by mouth Daily Active atorvastatin (Lipitor) 10 MG tablet Take 1 tablet by mouth in the evening Active omeprazole (PriLOSEC) [address] capsule 2 Active propafenone (Rythmol) 150 MG tablet Take by mouth 2 Active traZODone (Desyrel) 50 MG tablet Take 1 tablet by mouth at bedtime 2 Active benzonatate (Tessalon) 100 MG capsule Take 100 mg by mouth as needed in the morning and 100 mg as needed at noon and 100 mg as needed in the evening. 4 Active acetaminophen (Tylenol) 500 MG tablet Take by mouth every 6 (six) hours if needed 3 Active gabapentin (Neurontin) 300 MG capsule 3 Active HYDROcodone-aide taminophen ([place]) 7.5-325 MG tablet Active levETIRAcetam (Keppra) 500 [...] before bedtime. 10 mL 1 5 Active fluorouracil (Efudex) 5 % creamIndication s:Actinic keratosis Apply topically in the morning and before bedtime. Apply to directed areas on face, scalp, ears, and back of the hands, bid x 14 days. 40 g 10/09/26/19 Active Active Problems Problem Noted Date Diagnosed Date Hypersomnia 06/23/2024 PLMD (periodic limb movement disorder) Primary insomnia 06/23/2024 CAD (coronary artery disease) [...] Family history of malignant neoplasm of skin 3 02/15/2024 Glaucoma 09/06/2023 02/15/2024 Glycosuria 09/06/2023 02/15/2024 [...] valve disorder 09/17/20132023 Overview (02/15/2024): MILD (ECHO 8/14) Obstructive sleep apnea syndrome 09/17/2013 02/15/2024 Paroxysmal atrial fibrillation 09/17/2013 02/15/2024 Overview (02/15/2024): PAF; CHADS2 SCORE 2 (HTN, DM). ON COUMADIN. Diverticulosis of colon 10/17/201201/25 Essential hypertension 10/17/201202/14 Malignant neoplasm of skin 10/17/2012 0 02/15/2024 Type 2 diabetes mellitus wit hout complication, without long-term current use of insulin 10/17/2012 02/15/2024 Encounters Date Type Department Care Team Description 07/11/2025 Results Follow-Up [facility] [place] [facility] [address] [place] [address] Obdulia Shah APRN-CNP Dermatopathology exam 07/05/2025 Telephone [facility] [place] [facility] [address] [place] [address] Amberly SimsBEVERLY 07/04/2025 9:10 AM EDT Office Visit [facility] [place] [facility] [address] [place] [address] Obdulia Shah, RESOURCE PARAPROFESSIONALNETWORK CONTROL OPERATORS SUPERVISOR Seborrheic keratosis; Lentigines; Capillary angioma; Telangiectasia of face; History of malignant melanoma of skin; History of basal cell carcinoma; Melanocytic nevi of trunk; Actinic keratosis; Neoplasm of unspecified behavior of bone, soft tissue, and skin 07/04/2025 External Result Encounter [facility] External Department Unsolicited Obdulia Shah APRN-CNP 07/04/2025 Bamboo flowsheet [facility] [address] [place] [address] Obdulia Shah APRN-TOBI 07/04/2025 Travel from Last 3 Months Immunizations Immunization Administration Dates Next Due Influenza, [...] 07/19/2025 9:00 AM EDT Office Visit [facility] [address] [place] [address] Lamin Wynne DO [address] [place] [address] 08/19/2025 8:30 AM EST Office Visit [facility] [address] [place] [address] Meaghan Torres MD [address] [place] [address] 01/02/2026 8:45 AM EDT Office Visit [facility] [address] [place] [address] Meaghan Torres MD [address] [place] [address] Health Maintenance Due Date Last Done Comments Pneumococcal Vaccine: 65+ Years Completed 5, 12/25/2013, 08/28/2013 Influenza Vaccine Completed 07/12/2025, , 07/08/2023, Additional history exists Procedures Procedure Name Priority Date/Time Associated Diagnosis Comments SKIN / NAIL BIOPSY Routine 07/04/2025 9: 19 AM EDT Neoplasm of unspecified behavior of bone, soft tissue, and skin DERMATOPATHOLOGY EXAM Routine 07/04/2025 12:00 AM EDT from Last 3 Months Results * Lesion biopsy (07/04/2025 9:19 AM [...] of lidocaine used: 0.5 cc Obdulia Shah APRN-NETWORK CONTROL OPERATORS SUPERVISOR DERM PROCEDURE ORDERAB LES Final Result * Dermatopathology exam (07/04/2025 12:00 AM EDT) SPECIMEN TYPE ------ SPECIMEN: RIGHT UPPER ARM - POSTERIOR ------ [facility] ICD10 Code D04.60 [facility] PROTOCOL F - FLAT [facility] 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 COMMENT: This material was reviewed with Dr. Almeida. [facility] Gross Text [facility] Microscopic Description Microscopic examination performed. [facility] CPT 92862*1 [facility] 07/04/2025 07/09/2025 us Obdulia Shah RESOURCE PARAPROFESSIONAL-NETWORK CONTROL OPERATORS SUPERVISOR LAB PATHOLOGY ORDERABL ES Final Result [facility] from Last 3 Months Insurance MEDICARE [employer] [place] Care Teams Pet Adoption Counselor Relationship Specialty Start Date End Date Augustine Frost DO [address] [place] [address] PCP - General Internal Medicine 06/02/23 Donte Montenegro MD [address] [place] [address] Referring Physician Dermatology 02/15/24 Augustine Freitas DO [address] [place] [address] Otolaryngology 02/15/24 Paulina Barboza OD [address] [place] [address] Referring Physician Optometry 12/28/24
--- OUTSIDE RECORDS SUMMARY | 2025-07-14 18:32 | XMS_ITS | Encounter Summary ---
Author Organization [facility] Address [address] [place] [address] Care Team Providers Care Teaching Aide Name Role Phone SantoshAugustine Primary Care Provider [phone] Donte Montenegro MD Unavailable Unavailable [employer] Augustine Kelsey DO Unavailable [phone] Paulina Barboza OD Unavailable Encounter Details Date Type Department Care Team (Late st Contact Info) Description 07/04/2025 External Result Encounter [facility] External Department Unsolicited Obdulia Shah, SOA ARCHITECT-CIVIL ENGINEERING DESIGN DRAFTSPERSON [address] [place] [address] Social History Tobacco Use Types Packs/Day Years [...] 07/19/2025 9:00 AM EDT Office Visit [facility] [address] [place] [phone] Lamin Wynne DO [address] [place] [address] 08/19/2025 8:30 AM EST Office Visit [facility] [address] [place] [address] Meaghan Torres MD [address] [place] [address] 01/02/2026 8:45 AM EDT Office [facility] [address] [place] [address] Meaghan Torres MD [address] [place] [address] documented as of this encounter Procedures Procedure Name Priority Date/Time Associated Diagnosis Comments DERMATOPATHOLOGY EXAM Routine 07/04/2025 12:00 AM EDT documented in this encounter Results * Dermatopathology exam (07/04/2025 12:00 AM EDT) SPECIMEN TYPE ------ SPECIMEN: RIGHT UPPER ARM - POSTERIOR ------ [facility] ICD10 Code D04.60 [facility] PROTOCOL F - FLAT [facility] 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 COMMENT: This material was reviewed with Dr. Almeida. [facility] Gross Text [facility] Microscopic Description Microscopic examination performed. [facility] CPT 90821*1 [facility] 07/04/2025 07/09/2025 us Obdulia Shah SOA ARCHITECT-CIVIL ENGINEERING DESIGN DRAFTSPERSON LAB PATHOLOGY ORDERABL ES Final Result [facility] documented in this encounter Visit Diagnoses Not on filedocumented in this encounter Care Teams Teaching Aide Relationship Specialty Start Date End Date Augustine Frost DO [address] [place] [address] PCP - General Internal Medicine 06/02/23 Donte Montenegro MD [address] [place] [address] Referring Physician Dermatology 02/15/24 Augustine Freitas DO [address] [place] [address] Otolaryngology 02/15/24 Paulina Barboza OD [address] [place] [address] Referring Physician Optometry 12/28/24 documented as of this encounter
--- OUTSIDE RECORDS SUMMARY | 2025-07-14 18:32 | XMS_ITS ---
Author Organization [facility] Address [address] [place] [address] Care Team Providers Care Police Service Technician Name Role Phone Santosh Augustine Primary Care Provider [phone] Active Problems Problem Noted Date Diagnosed Date [...]
--- OUTSIDE RECORDS SUMMARY | 2025-07-14 18:32 | XMS_ITS | Clinical Summary ---
Author Organization [facility] Address [address], [address] [place] [address] Care Team Providers Care Orthopedic Physician Assistant Name Role Phone Unavailable Primary Care Provider [...]
--- OUTSIDE RECORDS SUMMARY | 2025-07-14 18:32 | XMS_ITS | Encounter Summary ---
Author Organization [facility] Address [address] [address] Care Team Providers Care Adult Neurologist Name Role Phone Augustine Frost Primary Care Provider [phone] Donte Montenegro MD Unavailable Unavailable [employer] Augustine Kelsey DO Unavailable [phone] Paulina Barboza OD Unavailable Encounter Details Date Type Department Care Team (Late st Contact Info) Description 07/04/2025 Bamboo flowsheet [facility] [address] [place] [address] Obdulia Shah, BUILDING MAINTENANCE ENGINEER-EXPANDING MACHINE OPERATOR [address] [place] [address] Social History Tobacco Use Types Packs/Day Years [...] 07/19/2025 9:00 AM EDT Office Visit [facility] [address] [place] [address] Lamin Wynne DO [address] [place] [address] 08/19/2025 8:30 AM EST Office Visit [facility] [address] [place] [address] Meaghan Torres MD [address] [place] [address] 01/02/2026 8:45 AM EDT Office Visit [facility] [address] [place] [address] Meaghan Torres MD [address] [place], [place] [phone] documented as of this encounter Visit Diagnoses Not on filedocumented in this encounter Care Teams Adult Neurologist Relationship Specialty Start Date End Date Augustine Frost DO [address] [place] [address] PCP - General Internal Medicine 06/02/23 Donte Montenegro MD [address] [place] [address] Referring Physician Dermatology 02/15/24 Augustine Freitas DO [address] [place] [address] Otolaryngology 02/15/24 Paulina Barboza OD [address] [place] [address] Referring Physician Optometry 12/28/24 documented as of this encounter
--- OUTSIDE RECORDS SUMMARY | 2025-07-14 18:32 | XMS_ITS | Encounter Summary ---
Author Organization [facility] Address [address] [place] [facility] [place] [address] Care Team Providers Care Scallop Shucker Name Role Phone aSntosh Augustine Ramirez DO Primary Care Provider [phone] Donte Montenegro MD Unavailable Unavailable Augustine Freitas DO Unavailable [phone] Paulina Barboza OD Unavailable Encounter Details Date Type Department Care Team (Late st Contact Info) Description 10/17/2024 External Result Encounter [facility] External Department Unsolicited Augustine Freitas, DO [address] [place] [address] Social History Tobacco Use Types Packs/Day Years [...] 07/19/2025 9:00 AM EDT Office Visit [facility] [address] [place] [address] Lamin Wynne DO [address] [place] [address] 08/19/2025 8:30 AM EST Office Visit [facility] [facility] [address] [place] [address] Meaghan Torres MD [address] [place] [address] 01/02/2026 8:45 AM EDT Office Visit [facility] [address] [place] [address] Meaghan Torres MD [address] [place] [address] documented as of this encounter Procedures Procedure Name Priority Date/Time Associated Diagnosis Comments ECG 12-LEAD 10/17/2024 3:12 PM EST documented in this encounter Results * ECG 12 lead (10/17/2024 3:12 PM EST) 10/17/2024 3:12 PM EST [facility] - 10/17/2024 4:52 PM EST [facility] Main [address] [address] Electrocardiograph Report Signed Patient: Tito Goncalves MR#: [id number] : 1945 Acct:[id number] Age/Sex: 79 / M ADM Date: 10/17/24 Loc: Room: Type: [facility] Attending Dr: Augustine Freitas DO [...] in Lateral leads Confirmed by Darien Rubio ([id number]) on 10/17/2024 4:52:19 PM Referred By: Electronically Signed By: Darien Rubio Transcribed By: MUS Signed By Darien Rubio MD 10/17/24 165 Procedure Note Darien Rubio MD - 10/17/2024 [facility] Main [address] [address] Electrocardiograph Report Signed Patient: Tito Goncalves RMR#: [id number] : 6Acct:[id number] Age/Sex: 79 / MADM Date: 10/17/24 Loc: Room:Type: [facility] Attending Dr: Augustine Freitas DO [...] waves in Lateralleads Confirmed by Darien Rubio ([id number]) on 10/17/2024 4:52:19 PM Referred By: Electronically Signed By: Darien Rubio Transcribed By: MUS Signed By Darien Rubio MD 10/17/24 3467 us Augustine Freitas DO ECG ORDERABLES Final Resul t Performing Organization Address City/State/[facility] Co de Phone Number [address] [address], documented in this encounter Visit Diagnoses Not on filedocumented in this encounter Care Teams Scallop Shucker Relationship Specialty Start Date End Date Augustine Frost DO [address] [place] [address] PCP - General Internal Medicine 06/02/23 Donte Montenegro MD [address] [place] [address] Referring Physician Dermatology 02/15/24 Augustine Freitas DO [address] [place] [address] Otolaryngology 02/15/24 Paulina Barboza OD [address] [place] [address] Referring Physician Optometry 12/28/24 documented as of this encounter
--- NOTE | 2025-07-14 19:19 | ED.GENADUL1 ---
HPI HPI - General Adult General Chief complaint: Headache Stated complaint: POSS AFIB Time Seen by Provider: 07/14/25 18:26 Source: patient Mode of arrival: walk-in Limitations: no limitations History of Present Illness HPI narrative: Patient is a 80-year-old male presents to the ER with concerns that he may be in atrial fibrillation. Patient states he had a Watchman procedure done a year ago and has not had any issues since that procedure. Patient denies any blood thinner use. States he has had a cardioversion here in the past roughly 2018. He notes that he has had a mild headache all day which he takes Tylenol for it was gradual in onset frontal and initially attributed to the weather change but his blood pressure monitor kept showing an irregular symbol when he would take his blood pressure at home. Patient states this happened 3 times today and it was weighing on his mind that he may be back in atrial fibrillation. Patient makes it clear that he would not come to the ER simply for his headache as he typically only takes Tylenol for this. He denies any visual disturbance nausea vomiting or diarrhea. He denies any chest pain or shortness of breath. He has not noticed any palpitations or other symptoms such as chest pain or discomfort on exertion. Patient appears in no distress and states that his daughter is a nurse practitioner and is also and enroute. Location: Reports head Radiation: Reports non-radiation Severity: mild Quality: Reports aching Pain Consistency: Reports constant Relieving factors: Reports other (tylenol) Exacerbating factors: Reports none Associated symptoms: Reports denies other symptoms Treatments prior to arrival: Reports other (tylenol 8 hours ago) Related Data Home Medications ?Medication ?Instructions ?Recorded ?Confirmed amlodipine 10 mg tablet 5 mg PO .nightly 07/05/23 07/14/25 aspirin 81 mg tablet,delayed 81 mg PO DAILY 07/05/23 07/14/25 release (Adult Aspirin Regimen) atorvastatin 10 mg tablet (Lipitor) 10 mg PO DAILY 07/05/23 07/14/25 benazepril 20 mg tablet 20 mg PO DAILY 07/05/23 07/14/25 clonazepam 1 mg tablet 1 mg PO Q12H 07/05/23 07/14/25 trazodone 50 mg tablet 50 mg PO .nightly 07/05/23 07/14/25 acetaminophen 500 mg tablet 1,000 mg PO .Q8 02/06/25 07/14/25 vitamins A,C,A-rmvx-khjbpd 4,296 1 cap PO BID 02/06/25 07/14/25 mcg-226 mg-90 mg capsule (PreserVision AREDS) carvedilol 12.5 mg tablet 12.5 mg PO Q12H 07/14/25 07/14/25 glimepiride 1 mg tablet 0.5 mg PO QAM 07/14/25 07/14/25 levothyroxine 75 mcg tablet 75 mcg PO QAM 07/14/25 07/14/25 pantoprazole 40 mg tablet,delayed 40 mg PO QDAY 07/14/25 07/14/25 release Allergies Allergy/AdvReac Type Severity Reaction Status Date / Time iodine Allergy Hives Verified 07/14/25 18:30 Penicillins Allergy Unknown Verified 07/14/25 18:30 Sulfa (Sulfonamide Allergy Unknown Verified 07/14/25 18:30 Antibiotics) Opioid HPI Opioid Management Most Recent Opioid Data: Last Pain Scale 7 Today, 18:30 Last ORT Total Score 0 02/06/25, 13:43 Last ORT Risk Category Low Risk 02/06/25, 13:43 Review of Systems ROS Constitutional Denies: fever, chills or change in weight Eyes Denies: change in vision, blurry vision, blind spots, light sensitivity, eye discomfort or eye discharge Ears, nose, mouth, and throat Denies: throat pain or neck pain Cardiovascular Denies: chest pain, palpitations, edema or leg pain with exertion Respiratory Denies: shortness of breath or cough Gastrointestinal Denies: abdominal pain, nausea, vomiting or coffee grounds in vomit Genitourinary Denies: painful urination, urinary frequency or urinary urgency Musculoskeletal Denies: back pain, neck pain or extremity pain Integumentary/Breast Denies: rash, itching, redness or skin pain Neurological Reports: headache; Denies: numbness in extremities, weakness in extremities, lack of coordination, dizziness, vertigo, confusion or difficulty communicating thoughts Psychiatric Denies: anxiety, mood swings or panic attacks Hematologic/Lymphatic Denies: easy bruising Allergic/Immunologic Denies: throat swelling or tongue swelling PFSH PFS Medical History (Updated 07/14/25 @ 19:20 by ASPEN Farias) Insomnia ?G47.00 - Insomnia, unspecified (ICD-10) GERD without esophagitis ?K21.9 - Gastro-esophageal reflux disease without esophagitis (ICD-10) CKD stage 3a, GFR 45-59 ml/min ?N18.31 - Chronic kidney disease, stage 3a (ICD-10) Benign essential hypertension ?I10 - Essential (primary) hypertension (ICD-10) Diabetes mellitus ?E11.9 - Type 2 diabetes mellitus without complications (ICD-10) Paroxysmal atrial fibrillation ?I48.0 - Paroxysmal atrial fibrillation (ICD-10) Presence of Watchman left atrial appendage closure device ?Z95.818 - Presence of other cardiac implants and grafts (ICD-10) HTN (hypertension) ?I10 - Essential (primary) hypertension (ICD-10) Brain bleed ?I61.9 - Nontraumatic intracerebral hemorrhage, unspecified (ICD-10) High cholesterol ?E78.00 - Pure hypercholesterolemia, unspecified (ICD-10) Melanoma ?C43.9 - Malignant melanoma of skin, unspecified (ICD-10) H/O cardiovascular stress test ?Z92.89 - Personal history of other medical treatment (ICD-10) History of cardioversion ?Z92.89 - Personal history of other medical treatment (ICD-10) 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 - 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, initial encounter (ICD-10) Atrial fibrillation ?I48.91 - Unspecified atrial fibrillation (ICD-10) Surgical History 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) History of ERCP ?Z98.890 - Other specified postprocedural states (ICD-10) History of colonoscopy ?Z98.890 - Other specified postprocedural states (ICD-10) History of knee replacement ?Z96.659 - Presence of unspecified artificial knee joint (ICD-10) History of lateral meniscus repair of left knee ?Z98.890 - Other specified postprocedural states (ICD-10) Family History (Updated 04/01/24 @ 20:20 by Caren Rapp) Father Family history of CHF (congestive heart failure) Family history of hypertension Mother Family history of cancer Family history of hypertension Grandmother Family history of diabetes mellitus Other Family history of myocardial infarction Social History (Updated 04/01/24 @ 20:21 by Caren Rapp) Within the past year, how often did you have a drink containing alcohol: never Score interpretation: A score less than 4 is consistent with normal alcohol consumption. Smoking status: Never smoker Non-prescribed substance use: denies use Highest level of school completed/degree received: high school graduate Are you now , , , , never or living with a partner: Little interest or pleasure in doing things: not at all Feeling down, depressed, or hopeless: not at all Feel stressed/tense/nervous/anxious/difficulty sleeping: not at all Do you think of yourself as: straight/heterosexual Gender Identity: male Exam Narrative Exam Narrative: Vital signs and nurse's notes reviewed. The patient is not hypoxic. General: The patient appears well and in no apparent distress. Patient is resting comfortably on cart. Skin: Warm, dry, no pallor noted. The patient has no evidence of rash, petechiae, or pupura noted. Head: Normocephalic, atraumatic, no temporal arterial tenderness. Neck: Supple, trachea mid-line, no tenderness, no lymphadenopathy. No meningeal signs. No nuchal rigidity. Eye: Pupils are equal, round and reactive to light, EOMI Ears, Nose, Mouth, and Throat: Oral mucosa is moist, TMs are clear bilaterally, no hemotympanum noted. Cardiovascular: Regular rate and rhythm Respiratory: Patient is in no distress, no accessory muscle use, lungs are clear to auscultation, no wheezing, rales or rhonchi Back: Non-tender, no CVA tenderness Musculoskeletal: normal ROM, no tenderness, no swelling, normal strength 5/5. Normal pulses to radial 2+ bilaterally and 2+ at DP and PT bilaterally and symmetrically. GI: Normal bowel sounds, no tenderness to palpation, no masses appreciated. No rebound, guarding, or rigidity noted. Neurological: Alert and oriented x4, normal equal property management assistant strength, normal finger to nose, no pronator drift. The patient is not ataxic. The patient has normal speech. The patient has normal coordination. Normal motor and sensory observed. Psychiatric: Cooperative Constitutional Vital Signs, click to edit/add: Last Vital Signs Temp 97.8 F 07/14/25 18:30 Pulse 72 07/14/25 18:30 Resp 16 10/19/25 18:30 BP 189/85 H 07/14/25 18:30 Pulse Ox 97 07/14/25 18:30 O2 Del Method Room Air 07/14/25 18:30 Course Vital Signs Vital signs: Vital Signs Temperature 97.8 F 07/14/25 18:30 Pulse Rate 72 07/14/25 18:30 Respiratory Rate 16 07/14/25 18:30 Blood Pressure 189/85 H 07/14/25 18:30 Pulse Oximetry 97 07/14/25 18:30 Oxygen Delivery Method Room Air 07/14/25 18:30 Temperature 97.8 F 07/14/25 18:30 Pulse Rate 72 07/14/25 18:30 Respiratory Rate 16 07/14/25 18:30 Blood Pressure 189/85 H 07/14/25 18:30 Pulse Oximetry 97 07/14/25 18:30 Oxygen Delivery Method Room Air 07/14/25 18:30 Medical Decision Making MDM Narrative Medical decision making narrative: Patient presents with chief concern that he may be back in atrial fibrillation based on irregular heart rate icon noted on his blood pressure machine. Patient notes he has had a mild to moderate headache today for which she has used Tylenol initially attributed to the weather change but states the last time he had a headache he was in A-fib. He has not been in A-fib for a year. He denies any head injury fall or trauma. Patient does have a pertinent history of prior intracranial bleed from a fall in his garage remotely. He reports having no deficits or headache symptoms from that episode. We discussed his EKG showing a sinus rhythm at 70 bpm. His blood pressure initially elevated with automatic cuff improved with manual readings. His daughter was then present at the bedside for discussion on further evaluation versus disposition to home with continued monitoring. The patient does have an Apple Watch, that he was unaware can detect his heart rate and ECG pattern as a screening tool for A-fib at home. He is aware of other symptoms with A-fib including weakness discomfort and palpitations of which we would recommend he return in the ER for reevaluation. At this time the patient declines further evaluation into his symptoms as his concern is relieved with EKG performed here and clinical discussion at the bedside. Patient states the level of his headache is nothing that he would take more than Tylenol for at this time and declines the need for additional treatment. Patient's daughter at bedside agreeable with mutual discussion regarding his presentation, concerns and symptoms. Patient will be discharged home to follow-up with his family doctor. The patient is to followup with primary care physician in next 2-3 days or to return to the emergency department should any of the signs or symptoms worsen or new symptoms develop. Patient had questions answered. The patient agrees with the following Diagnosis and Treatment plan and the patient will be discharged home. ECG Data Attestation: I personally reviewed and interpreted this ECG as follows: Interpretation: Prelim EKG interpretation: normal sinus rhythm 70, no ectopy, no ST segment elevation, normal axis. Discharge Plan Discharge Chief Complaint: Headache Clinical Impression: Cephalalgia, History of atrial fibrillation Patient Disposition: Home, Self-Care Time of Disposition Decision: 19:20 Condition: Good Prescriptions / Home Meds: No Action amlodipine 10 mg tablet 5 mg PO .nightly benazepril 20 mg tablet 20 mg PO DAILY atorvastatin [Lipitor] 10 mg tablet 10 mg PO DAILY aspirin [Adult Aspirin Regimen] 81 mg tablet,delayed release (DR/EC) 81 mg PO DAILY trazodone 50 mg tablet 50 mg PO .nightly clonazepam 1 mg tablet 1 mg PO Q12H PreserVision AREDS 4,296 mcg-226 mg-90 mg capsule 1 cap PO BID acetaminophen 500 mg tablet 1,000 mg PO .Q8 carvedilol 12.5 mg tablet 12.5 mg PO Q12H pantoprazole 40 mg tablet,delayed release (DR/EC) 40 mg PO QDAY glimepiride 1 mg tablet 0.5 mg PO QAM levothyroxine 75 mcg tablet 75 mcg PO QAM Print Language: Burmese Instructions: General Headache (ED) Referrals: Augustine Frost DO [Primary Care Provider, Internal Medicine] - 1 week
== END 2025-07-14 19:33 | disposition home or self-care (01) ==
PROVIDERS: Emergency Provider Emergency Medicine; PCP Internal Medicine
DX: R51.9 Headache, unspecified (principal); Z95.818 Presence of other cardiac implants and grafts
CPT/HCPCS: 93005; 99283

== ENCOUNTER 2025-08-15 07:29 | Outpatient (OUT) | payer MEDICARE, OTHER, SELFPAY ==
--- OUTSIDE RECORDS SUMMARY | 2025-08-15 07:38 | XMS_ITS | Clinical Summary ---
Author Organization [facility] Address [address] [place] [address] Care Team Providers Care Geotechnical Engineering Technician Name Role Phone Augustine Frost DO Primary Care Provider [phone] Allergies Active AllergyReactionsCriticalityNoted YxpjDoggerzoPkvzdwIvcjuvyb01/05/2013 Mouth swelled shut Penicillin ZEfmaq8910/20/2012Shellfish ReotgevYqlbjork18/25/2013Sulfa Antibiotics Kafansdx69/25/2013 Medications MedicationSigDispense QuantityRefillsLast FilledStart DateEnd DateStatus amLODIPine 10 MG Tab tablet Take 1 tablet by mouth.Active benazepril 20 MG Tab Take 1 tablet by mouth daily.02/03/2018Active atorvastatin 10 MG Tab tablet Take 1 tablet by mouth every evening.06/15/2012ctive omeprazole [address] capsule Take 1 capsule by mouth daily every morning.12/27/2017Active warfarin 5 MG tablet 1 tablet.01/02/2018Active aspirin EC [address] Take 1 tablet by mouth daily.Active carveDILOL 6.25 MG tablet Take 1 tablet by mouth 2 times daily.03/04/2020Active propafenone 150 MG tablet Take by mouth every 8 hours.Active traZODone 50 MG tablet Take 1 tablet by mouth every evening at 6 PM.Active clonazePAM 1 MG tablet Take 1 tablet by mouth every evening.Active Multiple Vitamins-Minerals (PRESERVISION AREDS PO) Take by mouth.Active docusate 100 MG capsule Take 1 capsule by mouth 2 times daily. 60 capsule 03/15/2022ctive therapeutic multivitamin-minerals tablet Take 1 tablet by mouth at bedtime. 30 tablet 03/15/2022ctive oxyCODONE 5 MG tablet Indications:Acute postoperative pain of right kneeTake one to two tabs every 4-6 hours as needed for severe pain. Wean as tolerated 30 tablet 03/15/2022ctive acetaminophen 325 MG tablet Take 2 tablets by mouth every 4 hours as needed for Mild Pain. 50 tablet ctive Active Problems ProblemNoted DateDiagnosed DateS/P total knee arthroplasty, right03/15/2022 Paroxysmal atrial ktsmgiatkcod63/20/2022Gastroesophageal reflux disease without lkxyuydykzh75/20/2022Mixed vuewuxvkyqmhit90/20/2022Type 2 diabetes mellitus without complication, without long-term current use of gqytmze7803/15/2022tage 3a chronic kidney hwdgfjn6803/15/2022estless leg wjaospyi40/20/2022Hyponatremia 03/15/20226985Vipjmtdafd70/19/2022 Family History Medical HistoryRelationNameCommentsDiabetesFatherHeart Disease - OtherFather HypertensionFatherBreast CancerMotherHypertensionMotherRelationNameStatus CommentsFatherMother Social History Tobacco UseTypesPacks/DayYears UsedDateSmoking Tobacco: GktcyhWweqfgktng6Tkwi: 02/08/1983Smokeless Tobacco: FormerQuit: 02/08/2003 Tobacco Cessation:Counseling Given: Not Answered Alcohol UseStandard Drinks/WeekCommentsNo0 (1 standard drink = 0.6 oz pure alcohol)Sex and Gender InformationValueDate RecordedSex Assigned at BirthNot on fileLegal MocSqsp1901/24/2017 3:37 PM EDTGender IdentityMaleSexual OrientationNot on file Last Filed Vital Signs Vital SignReadingTime TakenCommentsBlood Pxgsrogy055/70003/16/2022 11:00 AM EDT Vslqu473203/16/2022 11:00 AM DIADtpasbmdjad34.2 ??C (97.2 ??F)03/16/2023 11:19 AM EDTRespiratory Doxp946203/16/2022 11:00 AM EDTOxygen Rqfwdswlid64%03/16/2022 11:00 AM EDTInhaled Oxygen Concentration--Ztsvfo787.1 kg (245 lb)03/16/2023 11:19 AM BKBFpqfpw620.9 cm (6')03/16/2023 11:19 AM EDTBody Mass Index33.23003/16/2023 11:19 AM EDT Plan of Treatment Health MaintenanceDue DateLast DoneCommentsDIABETIC FOOT EXAM1946EYE EXAM 1946HEPATITIS C VIRUS RVCBRQZQQ33/28/0898GRQQBG64/28/7837TVRKTVX1946 URINE MICROALBUMIN TEST1946TDAP (ADULT)1965COLORECTAL CANCER SCREENING BGXGYQRHOJ12/28/1991PNEUMOCOCCAL VACCINE SERIES (2 of 2 - PCV) RSV VACCINE (1 - 1-dose 75+ series)2021HBA1C TEST /OVID-19 VACCINE ( - season), 04/17/2022, 06/22/2021, Additional history existsINFLUENZA VACCINE (#1) /12/2021, 07/15/2021, 07/09/2020, Additional history existsPOTASSIUM Ncgibityrlcp38/21/2022, 02/18/2022ZOSTER (SHINGLES) USUNOSHQupreewbf90/08/2023, 01/01/2023, 07/18/2013HEP B VACCINEAged OutNo longer eligible based on patient's age to complete this topic Medical Devices ImplantedTypeAreaManufacturerDevice IdentifierShelf Expiration DateModel / Serial / LotPalacos R 1 X 40 - [id number] Implanted:Qty: 2 on 03/15/2022 by Pastor Brito MD at [facility] REV LOC Right: Knee05/26/2026/ / [id number] Patella Medialized Dome Implanted:Qty: 1 on 03/15/2022 by Pastor Brito MD at [facility] REV LOC Right: GmrsDTMDE49/28/[id number] / [id number] / [id number] Knee System Tibial Base Fixed Bearing Implanted:Qty: 1 on 03/15/2022 by Pastor Brito MD at [facility] REV LOC Right: RkwhQXWUL90/30/[id number] / [id number] / [id number] Femoral Posterior Stabilized Implanted:Qty: 1 on 03/15/2022 by Pastor Brito MD at [facility] REV LOC Right: Knee12/24/2030/ 1504-10-208 / [id number] Tibial Insert Fixed Bearing Posterior Stabilized Implanted:Qty: 1 on 03/15/2022 by Pastor Brito MD at [facility] LOC Right: JdqdFHOQO79/28/[id number] / / [id number] Procedures Procedure NamePriorityDate/TimeAssociated DiagnosisCommentsRENAL FUNCTION PANEL Today03/16/2022 5:14 AM EDT HEMOGLOBIN P1QXnqaojm20/26/2022 12:30 PM EDT Pre-op testing from Last 3 Months or Most Recently Relevant to Health Maintenance Results * (ABNORMAL) RENAL FUNCTION PANEL (03/16/2022 5:14 AM EDT)ComponentValueRef RangeTest MethodAnalysis TimePerformed AtPathologist PnlxckdrkFpauswf185(H)70 - 100 MG/DL[address]Comment: NORMAL <100 mg/dL PREDIABETES 101-126 mg/dL DIABETES 126 mg/dL or higher BUN22(H)7 - 20 MG/DL[address] CREATININE SERUM1.200.7 - 1.2 MG/DL[address]ODIUM136(L)137 - 145 MMOL/LG[address]Potassium4.53.5 - 5.1 MMOL/LG[address]CHLORIDE10698 - 107 MMOL/LG26 [address]Comment:Please note: Triglyceride levels of 600mg/dL or higher may positively bias chloride results by approximately 2.1 mmolCARBON DIOXIDE (CO2)2322 - 30 MMOL/LG[address]bumin3.3(L)3.5 - 5.0 G/dl20 [address]CALCIUM7.9(L)8.4 - 10.2 MG/DL[address]PHOSPHORUS2.92.5 - 4.5 MG/DL[address]STIMATED GFR, NON XERP57ti/min/1.73sq.[address]IONESTIMATED GFR, 76ml/min/1.73sq.[address]GFR COMMENTAverage GFR for 70+ years old = 75.[address]Comment: Chronic Kidney disease, GFR = <60. Kidney failure, GFR = <15. The GFR estimate is not adjusted for extreme body surface area or acute process, nor has it been validated for women or ethnic groups other than and . Testing performed at [place], [place] [address] Specimen (Source)Anatomical Location / LateralityCollection Method / Volume Collection TimeReceived Time03/16/2022 5:14 AM EDT03/16/2022 5:38 AM EDT Narrative Authorizing ProviderResult TypeResult StatusMagruder HospitalMatilde Ferguson MDCHEMISTRY ORDERABLESFinal ResultPerforming OrganizationAddressCity/State/ZIP CodePhone Number [address] [address] * (ABNORMAL) HEMOGLOBIN A1C (02/18/2022 12:30 PM EDT)ComponentValueRef RangeTest MethodAnalysis TimePerformed AtPathologist SignatureHEMOGLOBIN A1C7.3(H)<6 % [address]Comment: NORMAL <5.7% PREDIABETES 5.7-6.4% DIABETES 6.5% OR HIGHER Estimated Average Qokdmac457my/dL[address]Specimen (Source)Anatomical Location / LateralityCollection Method / VolumeCollection TimeReceived IdtxEftgn52/26/2022 12:30 PM EDT02/18/2022 12:49 PM EDT Narrative Authorizing ProviderResult TypeResult StatusM Health [facility]-CHEMATOLOGY ORDERABLES Final ResultPerforming OrganizationAddressCity/State/ZIP CodePhone Number [facility] [address] [facility] [address] [place] [address] from Last 3 Months or Most Recently Relevant to Health Maintenance Insurance Advance Directives For more information, please contact: [phone] (7:30 AM - 6PM [facility], Tuesday-Tuesday) * Full Code (Latest Code Status on File) Date ActivatedDate InactivatedComments03/15/2022 4:44 PM Care Teams Team MemberRelationshipSpecialtyStart DateEnd Date Augustine Frost DO PCP - GeneralInternal Medicine01/24/17
--- OUTSIDE RECORDS SUMMARY | 2025-08-15 07:38 | XMS_ITS ---
Author Organization [facility] Address [address] [place] [address] Care Team Providers Care Aadc Plans Staff Officer Name Role Phone Augustine Frost DO Primary Care Provider [phone] Active Problems ProblemNoted DateDiagnosed DateAbrasion of ear canal07/11/20241614Ggrbzs20/16/2024 Chest pain07/11/2024AD (coronary artery disease)06/23/2024aytime mvgixhqirhavmpy84/28/4425Lauscvehanq73/28/2024rimary woshbobs87/28/2024LMD (periodic limb movement disorder)06/23/20248145Uemwkriqmeavfzjsuht44/27/2024Obesity 03/22/2024Type 2 diabetes mellitus with cswcrhnvriviw04/27/2024asal cell carcinoma of face4Calculus of /22/2024alculus of kidney 02/15/2024cute cholangitis due to calculus of bile duct with obstruction resence of Amulet left atrial appendage closure device 02/09/2024Stage 2 chronic kidney terdutc6601/28/2024ge-related nuclear cataract of both eyes/aroxysmal atrial sbhpojxkkxpt79/22/2024 Pericardial /22/2024enign prostatic hyperplasia with urinary byfpocksyii52alculus of otkpmh20iabetes qcfsqfug22Family history of malignant neoplasm of skin laucomalycosuria Lqaififczyv07ry eyesExposure keratitis Left corneal cplneimq44Exudative age- related macular wmbidwfryxvt57Fall01/22/2023Subdural hematoma 01/21/20235678Vouequmrvub41/29/2022Gastroesophageal reflux disease without mqtvpmzaxxk37/20/7216Pblfwiwcrojr94/20/2022Mixed wzvlvsywyujhuj46/20/2022 Restless leg jsuzpcdy25/20/2022/P total knee arthroplasty, right03/15/2022tage 3a chronic kidney sgftqmi2403/15/2022Type 2 diabetes mellitus without complication, without long-term current use of xtajqyd1503/15/2022rrhythmia 02/11/2022Hypertensive feeowdvr47/15/2014trial qnpppzbxspxa75/23/2013Mitral valve fhutiwud43/23/2013Obstructive sleep apnea aisxgzyi37/23/2013ile duct dwcgcaswkuo56/25/2013 Current Treatment and Therapy Plans No current plan information found. Past Treatment and Therapy Plans No past plan information found. Lifetime Dose Tracking * ChemicalLifetime DoseAutomatic EntryManual EntryFluoro Time17 minutes0 minutes 17 minutesAir Pdevn333.81 mGy0 xVc254.81 mGyDose Area Kcazdgl82,806 mGy-cm20 mGy-cm279,806 mGy-cm2
--- OUTSIDE RECORDS SUMMARY | 2025-08-15 07:38 | XMS_ITS | Clinical Summary ---
Author Organization [facility] Address [id number] [place] [address] Care Team Providers Care Systems Administration Analyst Name Role Phone Augustine Frost James MADDEN Primary Care Provider [phone] Allergies Active AllergyReactionsCriticalityNoted RtqeSzdakyubPkllto49/29/2023enicillin V 01/22/2023Sulfa (Sulfonamide Antibiotics)01/22/2023 Medications MedicationSigDispense QuantityRefillsLast FilledStart DateEnd DateStatus amLODIPine (NORVASC) 10 mg tablet Indications:hypertensionTake 1 tablet (10 mg total) by mouth once daily at bedtime Indications: high blood pressure.Active benazepriL (LOTENSIN) 20 mg tablet Take 1 tablet (20 mg total) by mouth in the morning.Active atorvastatin (LIPITOR) 10 mg tablet Take 1 tablet (10 mg total) by mouth once daily at bedtime.Active omeprazole (PriLOSEC) 20 mg capsule Take 1 capsule (20 mg total) by mouth every morning before breakfast.Active clonazePAM (KlonoPIN) 1 mg tablet Take 1 tablet (1 mg total) by mouth once daily at bedtime.Active carvediloL (COREG) 6.25 mg tablet Take 1 tablet (6.25 mg total) by mouth in the morning and 1 tablet (6.25 mg total) in the evening. Take with meals.Active traZODone (DESYREL) 50 mg tablet Take 1 tablet (50 mg total) by mouth nightly.Active propafenone (RYTHMOL) 150 mg tablet Take 1 tablet (150 mg total) by mouth every 8 (eight) hours.Active acetaminophen (TYLENOL EXTRA STRENGTH) 500 mg tablet Take 2 tablets (1,000 mg total) by mouth every 8 (eight) hours as needed for pain.Active Active Problems ProblemNoted DateDiagnosed DateFall, initial mdjloghes64/29/2023Subdural dpeagixq47/28/2023 Social History Tobacco UseTypesPacks/DayYears UsedDateSmoking Tobacco: FormerCigarettesQuit: 01/04/1975Passive Smoke Exposure: NeverSmokeless Tobacco: Never Tobacco Cessation:Counseling Given: Not Answered Housing InstabilityAnswerDate RecordedAre you worried or concerned that in the next two months you may not have stable housing that you own, rent or stay in as a part of a household?No01/22/2023Hunger ScreeningAnswerDate RecordedWithin the past 12 months we worried whether our food would run out before we got money to buy more.Never True01/22/2023Within the past 12 months the food we bought just didn't last and we didn't have money to get more.Never True01/22/2023Sex and Gender InformationValueDate RecordedSex Assigned at XytdsTafi99/29/2023 2:58 AM EDTLegal JtrTsps8901/21/2023 5:01 PM EDTGender YjjnglecGmsp12/29/2023 2:58 AM EDT Sexual KxazkwjgvvrOgaridii52/29/2023 2:58 AM EDT Last Filed Vital Signs Vital SignReadingTime TakenCommentsBlood Wdeutkeo144/7504 4:13 PM EDT Maopp661001/22/2023 4:13 PM ISXNhypspmepqh08.6 ??C (97.8 ??F)01/22/2023 4:13 PM EDTRespiratory Lcfc525201/22/2023 4:13 PM EDTOxygen Ovdccbncyy44%01/22/2023 4:13 PM EDTInhaled Oxygen Concentration--Maholw079.6 kg (235 lb 0.2 oz)01/22/2023 2:50 AM JXFQjrddt260.9 cm (6')01/22/2023 2:50 AM EDTBody Mass Index31.87 01/22/2023 2:50 AM EDT Plan of Treatment Health MaintenanceDue DateLast DoneCommentsDepression Vguxgsnry18/28/1958Tobacco Npyxqlqoz22/28/1958DTaP,Tdap and Td Vaccines (1 - Tdap)1965Fall Risk Uqvswnmrn00/28/2011RSV ( or age 60+ yrs) (1 - 1-dose 75+ series) 2021Zoster (Shingles) Vaccine (3 of 3)/04/2023, 07/18/2013 COVID-19 Vaccine ( - season)509/, 04/17/2022, 06/22/2021, Additional history existsInfluenza Xgmhzsf79/12/2021, 07/15/2021, 07/09/2020, Additional history exists Medical Devices Not on file Insurance Advance Directives * Full Code (Latest Code Status on File) Date ActivatedDate InactivatedComments01/22/2023 2:53 AM4 8:59 PM Care Teams Team MemberRelationshipSpecialtyStart DateEnd Date Augustine Frost DO [facility] [place] [address] PCP - GeneralInternal Medicine09/26/22
--- OUTSIDE RECORDS SUMMARY | 2025-08-15 07:38 | XMS_ITS | Clinical Summary ---
Author Organization [facility] Address [address] [place] [address] Care Team Providers Care Turret Lathe Machinist Name Role Phone Augustine Frost Primary Care Provider [phone] PatienceAugustine quesada Laure DO Unavailable [phone] Paulina Barboza OD Unavailable Allergies Active AllergyReactionsCriticalityNoted DateCommentsIodineAnaphylaxis,Swelling High08/31/2009 Other Reaction(s): Unknown, Unknown Mouth swelled shut Mouth swelled shut Mouth swelled shut TxyouUwtlq58/05/2023Penicillin BAumtn7210/20/2012 Other Reaction(s): Unknown, Unknown Penicillin V06900EtjvouxintjObdgfBecf76/06/1963 Other Reaction(s): Unknown Shellfish AllergySwelling,ZgtorAurp28/06/2009Shellfish Protein-Containing Drug RqqozfglRupizefa54/25/2013Sulfa AntibioticsRash,NibepylpDjp01/06/1993 Other Reaction(s): Unknown Medications MedicationSigDispense QuantityRefillsLast FilledStart DateEnd DateStatus aspirin 81 MG EC tablet Take 1 tablet by mouth DailyActive atorvastatin (Lipitor) 10 MG tablet Take 1 tablet by mouth in the eveningActive omeprazole (PriLOSEC) [address] capsule 04/22/2022ctive propafenone (Rythmol) 150 MG tablet Take by mouth07/06/2022ctive traZODone (Desyrel) 50 MG tablet Take 1 tablet by mouth at qdeuyvx2804/30/2022ctive benzonatate (Tessalon) 100 MG capsule Take 100 mg by mouth as needed in the morning and 100 mg as needed at noon and 100 mg as needed in the evening.03/04/2024Active acetaminophen (Tylenol) 500 MG tablet Take by mouth every 6 (six) hours if wzpggu0107/05/2023ctive gabapentin (Neurontin) 300 MG capsule 01/22/2023ctive HYDROcodone-acetaminophen (Coleman) 7.5-325 MG tablet Active levETIRAcetam (Keppra) 500 MG tablet 01/22/2023ctive meloxicam (Mobic) 15 MG tablet Active Multiple Vitamin (Multi Vitamin) tablet Take by mouthActive pioglitazone-metFORMIN (ACTOPlus Met) 15-850 MG tablet Take 1 tablet by mouth in the morning.Active clopidogrel (Plavix) 75 MG tablet Take 75 mg by mouth DailyActive amiodarone (Pacerone) 200 MG tablet Take 200 mg by mouth in the morning.02/09/2024ctive amLODIPine (Norvasc) 5 MG tablet Take 5 mg by mouth Daily02/28/2024ctive carvedilol (Coreg) 6.25 MG tablet 06/10/2024ctive mupirocin (Bactroban) 2 % ointment 06/04/2024ctive pantoprazole (ProtoNix) 40 MG EC tablet 07/10/2024ctive carvedilol (Coreg) 12.5 MG tablet 08/22/2024ctive clonazePAM (KlonoPIN) 1 MG tablet Indications:PLMD (periodic limb movement disorder)1-2 tablet at bedtime 180 tablet 10/03/2024tive clindamycin (Cleocin) 300 MG capsule Indications:Basal cell carcinoma (BCC) of dorsum of nose1 capsule by mouth twice a day for 10 days 20 capsule 5Active benazepril (Lotensin) 20 MG tablet 09/20/2024ctive Xzkesrbryve-Pdcnrtom-Pxmgxujph 1-0.5-0.075 % solution Indications:Age-related nuclear cataract of both eyesAdminister 1 drop into affected eye(s) in the morning and 1 drop at noon and 1 drop in the evening and 1 drop before bedtime. 10 mL tive fluorouracil (Efudex) 5 % cream Indications:Actinic keratosisApply topically in the morning and before bedtime. Apply to directed areas on face, scalp, ears, and back of the hands, bid x 14 days. 40 g 10/09/229395/01/2026Active Active Problems ProblemNoted DateDiagnosed GxvpYydtqqnhako59/28/2024PLMD (periodic limb movement disorder)06/23/2024rimary yovntygy06/28/2024AD (coronary artery disease) 06/23/2024aytime qiqoimgerlhikhc46/28/3876Bbngpqyygtfuqpogwue64/27/2024Obesity 03/22/2024Type 2 diabetes mellitus with uoprkqzfgikhi25/27/2024asal cell carcinoma of face02/15/2024asal cell carcinoma of left side of neck02/15/2024 Calculus of bsifwkgqmpy37/22/2024alculus of pqtlzu8002/15/2024cute cholangitis due to calculus of bile duct with yjdjhbjkruc42/16/2024dvanced atrophic nonexudative 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 without subfoveal xqmuncjxnxi59/02/2024enign prostatic hyperplasia with urinary obstruction 09/06/2023alculus of sggoht7409/06/2023iabetes hjamhvna74/12/2023ry eyes 08/29/20239217Ltgozwwznm67/19/2022ile duct erzaozpjlhl65/25/2013 Resolved Problems ProblemNoted DateDiagnosed DateResolved DateAbrasion of ear canal07/11/2024 10/17/20248970Desntd87hest painFamily history of malignant neoplasm of skinGlycosuria Melanoma in situ of facerthritis Rgihzbjscoyekhxgyhnv25/22/202405/22/2024Squamous cell carcinoma of forehead resence of Amulet left atrial appendage closure device Stage 2 chronic kidney zpcwzvn06ge- related nuclear cataract of both eyesPericardial effusion (HHS-HCC)Family history of malignant neoplasm of skin /22/3568Wfxqanuu31Glycosuria1/ Vangttgzqtb71Left corneal prgcbell02Exposure doqvxaukr98orneal illvolnw80Exudative age- related macular degeneration of right eye with active choroidal dgdofyuhenuajnzltp73/08/202309/13/2024Exudative age-related macular degeneration of left eye with active choroidal jtajrpkjvmbosmvztq62/08/202309/13/2024 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 ON COUMADIN. 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 (Primary Dx); Type 2 diabetes mellitus with hyperglycemia, without long-term current use of insulin (HCC); Dry eyes07/19/2025amboo flowsheet [facility] [address] [place] [phone] Lamin Wynne DO 07/19/20253697Fuiznp05/16/2025Results Follow-Up [facility] [address] [place] [phone] Obdulia Shah APRN-CNP Dermatopathology exam07/05/2025[facility]phone [facility] [address] [place] [phone] Amberly Sims LPN 07/04/2025 9:10 AM EDTOffice Visit [facility] [address] [place] [phone] Obdulia Shah APRN-TOBI Seborrheic keratosis; Lentigines; Capillary angioma; Telangiectasia of face; History of malignant melanoma of skin; History of basal cell carcinoma; Melanocytic nevi of trunk; Actinic keratosis; Neoplasm of unspecified behavior of bone, soft tissue, and skin07/04/2025 External Result Encounter [facility] External Department Unsolicited Obdulia Shah APRN-CNP 07/04/2025amboo flowsheet [facility] [address] [place] [phone] Obdulia Shah APRN-TOBI 07/04/2025Travelfrom Last 3 Months Immunizations ImmunizationAdministration DatesNext DueInfluenza, High Dose Seasonal, Preservative Free07/09/2024,07/09/2020,07/25/2017,07/07/2016Influenza, Injectable, MDCK, preservative free05/27/2015Influenza, Seasonal, Quadrivalent, Vuuzxmgrnk33/04/2022Influenza, trivalent, gevwskekmf63/20/2021,07/12/2018 Pneumococcal Polysaccharide FLGT2883Zoster, Mmnpxmrkbym84/08/2023, 01/01/2023Zoster, live07/18/2013 Family History Medical HistoryRelationNameCommentsCoronary artery diseaseFatherDiabetesFather Heart diseaseFatherAneurysmMotherCerebral aneurysmMotherStrokeMotherDiabetes Paternal GrandmotherMultiple myelomaNeg HxRelationNameStatusCommentsFather DeceasedMotherDeceasedPaternal Grandmother Social History Tobacco UseTypesPacks/DayYears UsedDateSmoking Tobacco: FormerCigarettes Tobacco Cessation:Counseling Given: Not Answered Alcohol UseStandard Drinks/WeekCommentsNever0 (1 standard drink = 0.6 oz pure alcohol)caffeine: sodaSex and Gender InformationValueDate RecordedSex Assigned at BirthNot on fileLegal AaaUbzy5412/08/2022 6:49 PM EDTGender IdentityNot on file Sexual OrientationNot on file Last Filed Vital Signs Vital SignReadingTime TakenCommentsBlood Ncebaqgw134/6401 12:55 PM EST Iqqhr2166/08/2025 8:09 AM ESTTemperature--Respiratory Rate--Oxygen Usysyagbnw57% 10/03/2024 8:09 AM ESTInhaled Oxygen Concentration--Uehcpk804 kg (250 lb) 01/01/2025 10:01 AM EHDDmosbp434.9 cm (6')01/01/2025 10:01 AM EDTBody Mass Index 33.9104 10:01 AM EDT Plan of Treatment DateTypeDepartmentCare Team (Latest Contact Info)Bkuvxthtaoa16/24/2025 8:30 AM ESTOffice Visit [facility] [address] [place] [phone] Meaghan Torres MD [address] [place] [address] 11/01/2025 9:45 AM ESTOffice Visit [facility] [address] [place] [address] Lamin Wynne DO [address] [place] [address] 01/02/2026 8:45 AM EDTOffice Visit [facility] [address] [place] [address] Meaghan Torres MD [address] [place] [address] Health MaintenanceDue DateLast DoneCommentsCOVID-19 Vaccine (2024- season) /, 08/21/2024, 12/27/2023, Additional history exists Pneumococcal Vaccine: 65+ GeznhGkkjtovya49/23/2015, 12/25/2013, 08/28/2013 Influenza NtrfhymNbiwbmlvo01/17/2025, 07/09/2024, 07/08/2023, Additional history exists Procedures Procedure NamePriorityDate/TimeAssociated DiagnosisCommentsOCT, RETINA - OU - BOTH VDIBOxylzzf22/24/2025 9:52 AM EDT 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 Scan locations included subfoveal. Progression has been stable. Findings include abnormal foveal contour. Left Eye Quality was borderline. Scan locations included subfoveal. Progression has been stable. Findings include abnormal foveal contour. Notes Macular volume loss w/ retinal pigment epithelium (RPE) changes c/w drusen left eye (OS). Subfoveal changes right eye (OD) - no fluid seen on exam. Authorizing ProviderResult TypeResult StatusLamin Wynne DOOPHTH TOMOGRAPHY Final Result * Lesion biopsy (07/04/2025 9:19 AM EDT) Marissa Lo MA - 07/04/2025 9:19 AM EDT Type of biopsy: tangential Informed consent: discussed and consent obtained ?? Informed consent comment: ??The risks and benefits of the biopsy were discussed. Risks include but are not limited to bleeding, infection, scarring, pain, and nerve damage. An opportunity to ask questions prior to the procedure was permitted and all questions were answered. Patient was prepped and draped in usual sterile fashion: area cleansed with alcohol. Anesthesia: the lesion was anesthetized in a standard fashion ?? Anesthetic: ??1% lidocaine w/ epinephrine 1-100,000 buffered w/ 8.4% NaHCO3 Instrument used: DermaBlade ?? Hemostasis achieved with: electrodesiccation ?? Outcome: patient tolerated procedure well ?? Outcome comment: ??The specimen was placed in a prelabeled formalin container to be sent for pathology Post-procedure details: sterile dressing applied and wound care instructions given ?? Post-procedure details comment: ??Emphasized need to contact clinic for any signs of infection, uncontrollable bleeding, or complications. Dressing type: bandage ?? Additional details: ??Photo taken Amount of lidocaine used: 0.5 cc Authorizing ProviderResult TypeResult Bryant Shah APRN-CNPDERM PROCEDURE ORDERABLESFinal Result * Dermatopathology exam (07/04/2025 12:00 AM EDT)ComponentValueRef RangeTest MethodAnalysis TimePerformed AtPathologist SignatureSPECIMEN TYPE SPECIMEN: RIGHT UPPER ARM - POSTERIOR [facility] ICD10 CodeD04.60AUR[facility]A DIAGNOSTICSPROTOCOLF - FLATAURORA DIAGNOSTICSFinal DiagnosisSQUAMOUS CELL CARCINOMA IN-SITU. COMMENT: This material was reviewed with Dr. Almeida. [facility]ICSGross TextAURORA DIAGNOSTICSMicroscopic DescriptionMicroscopic examination performed.[facility] [id number]*1[facility] DIAGNOSTICSSpecimen (Source)Anatomical Location / LateralityCollection Method / VolumeCollection TimeReceived Time/ Narrative Authorizing ProviderResult TypeResult StatusNatalie A Alyssa ENERGY EFFICIENT SITE MANAGER-CNPLAB PATHOLOGY ORDERABLESFinal ResultPerforming OrganizationAddressCity/State/ZIP CodePhone Number [facility] from Last 3 Months Insurance Care Teams Team MemberRelationshipSpecialtyStart DateEnd Date Augustine Frost DO [address] [place] [phone] PCP - GeneralInternal Medicine06/02/23 Augustine Freitas W, [address] [place] [address] Otolaryngology02/15/24 Paulina Barboza OD [address] [place] [address] Referring PhysicianOptometry12/28/24
--- OUTSIDE RECORDS SUMMARY | 2025-08-15 07:38 | XMS_ITS | Clinical Summary ---
Author Organization [facility] Address [address], [address] [place] [address] Care Team Providers Care Supervisor Mold Shop Name Role Phone Unavailable Primary Care Provider Unavailabl e Medications MedicationSigDispense QuantityRefillsLast FilledStart DateEnd DateStatus atorvastatin (LIPITOR) 10 MG tablet Take 1 tablet by mouth daily. 90 tablet ctive pioglitazone-metformin (ACTOPLUS MET) 15-850 MG per tablet Tale 1 tablet daily 90 tablet ctive Social History Tobacco UseTypesPacks/DayYears UsedDateSmoking Tobacco: Never AssessedSex and Gender InformationValueDate RecordedSex Assigned at BirthNot on fileLegal Sex Male11/05/2012 5:51 PM ESTGender IdentityNot on fileSexual OrientationNot on file Plan of Treatment Not on file
--- OUTSIDE RECORDS SUMMARY | 2025-08-15 07:38 | XMS_ITS | Clinical Summary ---
Author Organization [facility] Address [address] [place] [address] Care Team Providers Care Construction Helper Name Role Phone Augustine Frost DO Primary Care Provider [phone] Allergies Active AllergyReactionsCriticalityNoted DateCommentsIodineAnaphylaxisHigh 08/31/20091559DdirvIinpd97/05/3354JlsrhtrsubjQkkidDcht13/06/1963Shellfish Containing ZltkatjzRvgihVyox71/06/2009Sulfa (Sulfonamide Antibiotics)HaibAsq2408/31/1993 Medications MedicationSigDispense QuantityRefillsLast FilledStart DateEnd DateStatus aspirin 81 mg EC tablet Take 1 tablet every day by oral route.Active atorvastatin (Lipitor) 10 mg tablet Take 1 tablet by mouth in the evening.Active benazepril (Lotensin) 20 mg tablet Take 1 tablet by mouth in the morning.Active traZODone (Desyrel) 50 mg tablet Take 1 tablet by mouth at bedtime.Active clonazePAM (KlonoPIN) 1 mg tablet Take 1 mg by mouth in the morning.11/12/2022ctive vit A/vit C/vit E/zinc/copper (ICAPS AREDS ORAL) Take 1 chewable tablet by mouth in the morning.Active pantoprazole (ProtoNix) 40 mg EC tablet Take 40 mg by mouth.07/10/2024ctive amLODIPine (Norvasc) 10 mg tablet Indications:Primary hypertensionTake 1 tablet (10 mg) by mouth in the morning. 90 tablet 304//887420/ctive carvedilol (Coreg) 12.5 mg tablet Indications:Essential hypertensionTAKE 1 TABLET BY MOUTH EVERY MORNING WITH BREAKFAST AND TAKE ONE TABLET BY MOUTH EVERY EVENING WITHEVENING MEAL 90 tablet 306//847782/6Active glimepiride (Amaryl) 1 mg tablet Take 1 mg by mouth before breakfast.05/11/2025tive levothyroxine (Synthroid, Levoxyl) 75 mcg tablet Take 75 mcg by mouth in the morning.5Active Active Problems ProblemNoted DateDiagnosed DateAbrasion of ear canal07/11/20241765Kdmbee43/16/2024 Chest pain07/11/2024AD (coronary artery disease)06/23/2024aytime bczckcbdafbanbu95/28/7699Ntjrehuozvx01/28/2024rimary bkvmsuag78/28/2024LMD (periodic limb movement disorder)06/23/20244109Fjicqqtwqibneyqztke42/27/2024Obesity 03/22/2024Type 2 diabetes mellitus with fborpbiotqmel19/27/2024asal cell carcinoma of face02/15/2024alculus of hglicaiittw27/22/2024alculus of kidney 02/15/2024cute cholangitis due to calculus of bile duct with obstruction /resence of Amulet left atrial appendage closure device 02/09/2024Stage 2 chronic kidney orfmpzn4501/28/2024ge-related nuclear cataract of both eyes/aroxysmal atrial jbhqqrzgppyb54/22/2024 Pericardial nsbsefab59/22/2024enign prostatic hyperplasia with urinary akikhsymeyv71/12/202312/alculus of pufeon23iabetes rdxtvqnw45Family history of malignant neoplasm of skin /0762Qhvqddph43lycosuria Xdmvxmejcwu67ry eyes/08/2023Exposure keratitis Left corneal haeutwbz91/08/2023Exudative age- related macular bsyhjpcqgvqn64/22/202312/08/20238998Noeo09/29/2023Subdural hematoma 6692Cjtjutehxbd88/29/2022Gastroesophageal reflux disease without dvdbmefgrnt36/20/0461Qtnechrjzlqb93/20/2022Mixed ufluckvztcrpiy79/20/2022 Restless leg tdkyfrtq82/20/2022/P total knee arthroplasty, right03/15/2022tage 3a chronic kidney dqetcda0703/15/2022Type 2 diabetes mellitus without complication, without long-term current use of bbgbcef6703/15/2022rrhythmia 02/11/2022Hypertensive ralpgggc57/15/2014trial aycwqiobpwdh28/23/2013Mitral valve xsueikzy08/23/2013Obstructive sleep apnea /23/2013ile duct zxodxakiqka92/25/2013 Encounters DateTypeDepartmentCare KmgeAtzlrqlwwpz22/30/2025 11:20 AM EDTOffice Visit [facility] [place] [address] [place] [address] Bianka Paul CNP Left arm pain (Primary Dx); Paroxysmal atrial fibrillation (CMS/HCC); Presence of Amulet left atrial appendage closure device; Primary hypertension; Mitral valve disorder; Ascending aorta dilatationfrom Last 3 Months Family History Medical HistoryRelationNameCommentsAlcohol abuseFatherCancerMotherHeart attack OtherRelationNameStatusCommentsBrotherAliveFatherDeceasedMotherDeceasedOther Social History Tobacco UseTypesPacks/DayYears UsedDateSmoking Tobacco: FormerCigarettes Smokeless Tobacco: Never Tobacco Cessation:Counseling Given: Not Answered Alcohol UseStandard Drinks/WeekCommentsNot Currently0 (1 standard drink = 0.6 oz pure alcohol)[facility] UtilitiesAnswerDate RecordedIn the past 12 months has the [employer], gas, oil, or water [employer] threatened to shut off services in your home?No01/24/2024Humiliation, Afraid, Rape, and Kick questionnaireAnswerDate RecordedWithin the last year, have you been afraid of your partner or ex-partner?No01/24/2024Emotionally AbusedNot on file01/24/2024hysically Abused Not on file01/24/2024Sexually AbusedNot on file01/24/2024Overall Financial Resource Strain (CARDIA)AnswerDate RecordedHow hard is it for you to pay for the very basics like food, housing, medical care, and heating?Not hard at all 01/24/2024UT Safety & EnvironmentAnswerDate RecordedWithin the last year, have you been afraid of your partner or ex-partner?No01/24/2024Emotionally AbusedNot on file01/24/2024hysically AbusedNot on file01/24/2024Sexually AbusedNot on file01/24/2024In the past year have you been physically or sexually abused? Unrecognized value01/24/2024TransportationAnswerDate RecordedIn the past 12 months, has lack of transportation kept you from medical appointments or from getting medications?No01/24/2024Lack of Transportation (Non-Medical)Not on file 01/24/2024Housing Stability Vital SignAnswerDate RecordedUnable to Pay for Housing in the Last YearNot on file01/24/2024Number of Places Lived in the Last YearNot on file01/24/2024In the last 12 months, was there a time when you did not have a steady place to sleep or slept in [place] (including now)?No 01/24/2024Hunger Vital SignAnswerDate RecordedWithin the past 12 months, you worried that your food would run out before you got the money to buymore.Never true01/24/2024an Out of Food in the Last YearNot on file01/24/2024Sex and Gender InformationValueDate RecordedSex Assigned at MmudwKqsh65/30/2024 10:37 AM EDTLegal EiwPvda9603/24/2022 11:11 PM EDTGender CattzivdVmri85/30/2024 10:37 AM EDTSexual OrientationHeterosexual or Gtfnjsfo15/30/2024 10:37 AM EDT Last Filed Vital Signs Vital SignReadingTime TakenCommentsBlood Xasufiis039/6609 12:00 PM EDT Xyetr9466 12:00 PM RVMTenwtwxmjcy00.8 ??C (98.2 ??F)01/29/2024 12:15 PM EDTRespiratory Iiid798704/12/2024 2:27 PM EDTOxygen Ydfoapeyzp19%06/25/2025 12:00 PM EDTInhaled Oxygen Concentration--Eudabv287 kg (237 lb)06/25/2025 12:00 PM EDT Fygbdt571.9 cm (6')06/25/2025 12:00 PM EDTBody Mass Index32.14006/25/2025 12:00 PM EDT Plan of Treatment Health MaintenanceDue DateLast DoneCommentsMedicare Annual Wellness (AWV) 1946Diabetes: Retinopathy Mvqzvfrog12/28/1956Depression Screening 1958Diabetes: Urine Protein Zzqfyisjf44/28/1965Adult Yvlornx7701/22/1968Fall Risk Uqweccksl30/28/2011Pneumococcal Vaccine: 50+ Years (2 of 2 - PCV)12/25/2014 12/25/2013Diabetes: Hemoglobin A1C/4COVID-19 Vaccine (2024- season), 12/27/2023, 06/21/2023, Additional history existsInfluenza Vaccine (#1), 06/29/2022, 07/15/2021, Additional history existsZoster NhiyhkyiQylraivzf97/08/2023, 01/01/2023, 07/18/2013HIB VaccinesAged OutNo longer eligible based on patient's age to complete this topicHPV VaccinesAged OutNo longer eligible based on patient's age to complete this topicIPV VaccinesAged OutNo longer eligible based on patient's age to complete this topicMeningococcal B VaccineAged OutNo longer eligible based on patient's age to complete this topicMeningococcal VaccineAged OutNo longer eligible based on patient's age to complete this topicRotavirus Vaccines Aged OutNo longer eligible based on patient's age to complete this topic Medical Devices ImplantedTypeAreaManufacturerDevice IdentifierShelf Expiration DateModel / Carrol / Isaac Avila,Scott,28mm - [id number] Implanted:Qty: 1 on 01/24/2024 by D[facility]en Crane [facility] [id number] / / [id number] Procedures Procedure NamePriorityDate/TimeAssociated DiagnosisCommentsECG 12 LEAD UNIT GLJEFSYLXTwwudwd24/30/2025 12:12 PM EDT Left arm pain HEMOGLOBIN E8ACukcyep19/05/2024 6:03 AM EDT from Last 3 Months or Most Recently Relevant to Health Maintenance Results * ECG 12 lead unit performed (06/25/2025 12:12 PM EDT)Specimen (Source) Anatomical Location / LateralityCollection Method / VolumeCollection Time Received Time Narrative Authorizing ProviderResult TypeResult StatusMelmay Paul [facility] ORDER[facility]LES Final Result * (ABNORMAL) Hemoglobin A1c (01/29/2024 6:03 AM EDT)ComponentValueRef RangeTest MethodAnalysis TimePerformed AtPathologist SignatureHemoglobin A1C7.3(H)4.0 - 6.0 %01/29/2024 3:07 PM [facility] ([facility])Estimated Average Glucose 163mg/dL01/29/2024 3:07 PM [facility] ([facility])Specimen (Source) Anatomical Location / LateralityCollection Method / VolumeCollection Time Received TimeBloodVenous blood specimen / UnknownArterial Line / Unknown 01/29/2024 6:03 AM EDT01/29/2024 6:25 AM EDT Narrative Authorizing ProviderResult TypeResult StatusShabi Paul [facility] BLOOD ORDERABLESFinal ResultPerforming OrganizationAddressCity/State/ZIP CodePhone Number [facility] [address] [place] [address] from Last 3 Months or Most Recently Relevant to Health Maintenance Insurance Advance Directives * Full Code (Latest Code Status on File) Date ActivatedDate InactivatedComments01/24/2024 10:50 AM01/29/2024 5:08 PM Care Teams Team MemberRelationshipSpecialtyStart DateEnd Date Augustine Frost DO [address] [place] [address] PCP - Otjbqgd84/11/22
--- OUTSIDE RECORDS SUMMARY | 2025-08-15 07:46 | XMS_ITS | CCD ---
Author Organization [facility] Informat ion Partnership [facility] Care Team Providers Care Supervisor Cloth Winding Name Role Phone GENE FAJARDO Admitting Unavailable GENE FAJARDO Attending Unavailable AUGUSTINE METZ Primary Care Unavailable RYAN CARDENAS Referring Unavailable Augustine Metz Primary Care Provider Augustine Metz DO Primary Care Provider [phone] Augustine Metz DO Primary Care Provider Carmen [...] Care Unavailable BALL, DR BRADSHAW Attending Unavailable FAWWADSHAIKH Tiburcio Attending Unavailable FAWSHAIKH Tiburcio ROWE Admitting Unavailable BALL, DR BRADSHAW Primary Care Unavailable Ball DO, Augustine Primary Care Provider [phone] VIRGINIE, AZUL Attending Unavailable VIRGINIE, AZUL Referring [...] Care Unavailable Ball, Augustine Primary Care Unavailable [place]leton, Colin S Admitting Unavailab james Song, Colin S Attending Unavailab james Metz MD, Augustine Ramirez Primary Care Provider Isaías, DO Bradshaw Primary Care Provider Murcek, DO Augustine Attending Provider [phone] Augustine Metz MD Primary Care Provider Christin Bolton MD Unavailable Murcek DOAugustine W Unavailable Augustine Metz MD Primary Care Provider Isaías MADDEN, Augustine Primary Care Provider Murcedipak DO, Augustine Attending Provider Murmelisa, Augustine Admitting Unavailable Ball, Augsutine Primary Care Unavailable Murcek, Augustine Attending Unavailable Murcek, Augustine Admitting Unavailable Ball, Augustine Primary Care Unavailable Murcek, Augustine Attending Unavailable Murcek, Augustine Admitting Unavailable Ball, Augustine Primary Care Unavailable Murcek, Augustine Attending Unavailable Ball, Augustine Primary Care Unavailable Murcek, Augustine Admitting Unavailable Murcek, Augustine Attending Unavailable Tamra OD, Paulina Unavailable Augustine Metz DO Primary Care Provider Murcek DO, Augustine Attending Provider Isaías MADDEN, Augustine Primary Care Provider Augustine Metz DO Attending Provider Maggy Murphy Attending Provider [phone] Krzysztof Carmona DO Attending Provider Esther Larson Attending Provider [phone] Lisa Lacey CMA Attending Provider UnavailMADISON Bolton Attending Unavailable OLIVER LIANG Attending Unavailable MAGGY MURPHY Attending Unavailable Augustine Metz DO Primary Care Provider Augustine eMtz DO Primary Care Provider Christin Bolton MD Unavailable Unavailable Augustine Metz DO Primary Care Provider [phone] Augustine Metz DO Attending Provider [phone] Kingston Coppola DO Attending Provider [phone] CHRISTIN BOLTON Attending Unavailable MURAUGUSTINE PEREZ Attending Unavailable MURMELISA, AUGUSTINE Kelsey Attending Unavailable MURMELISA, AUGUSTINE Kelsey Attending Unavailable CHRISTIN BOLTON Referring Unavailable JOSE R DODD Attending Unavailable MURCEK, AUGUSTINE Kelsey Attending Unavailable OSMAN SHAH Attending Unavailable OSMAN SHAH Attending Unavailable JOSE R DODD Attending Unavailable JOSE R DODD Attending Unavailable KINGSTON COPPOLA Attending Unavailable OSMAN SHAH Attending Unavailable Allergies Allergy ClassificationReported Allergen(s)Allergy TypeDate of OnsetReaction(s) FacilityIodine (and Iodine containting drugs) (1 source)IodineDrug Hhlwpjg43-81-6021Qacbasl ReactionThe Bellevue HospitalPenicillins (antibiotic) (1 source)PenicillinsDrug Froymqn34-40-6504QrpwfNcgypqgjwLakeHealth Beachwood Medical Centerhellfish (2 sources)ShellfishFood Uyaqodj34-39-4051Pbeeglc ReactionLakeHealth Beachwood Medical Centerulfonamides (antibiotic) (1 source)Sulfonamides (Antibiotic)Drug Spwfbzl93-22-7713McklirfpJospagiwc Regional Medical Center (20 sources)Iodine; Translations: [iodine]Drug Lpmlpnv36-50-6890Rbzqguw, Unknown Reaction, Swelling of Lip/Tongue/ThroatThe [facility] (16 sources)Penicillins; Translations: [PENICILLINS]Drug allergy (disorder) 91-97-2132Fnzzzkx Reaction, HivesThe [facility] (16 sources)Sulfonamides (Antibiotic); Translations: [SULFA (SULFONAMIDE ANTIBIOTICS)]Drug allergy (disorder)48-53-2164MnyropkgGbxMetroHealth [facility] Repository (2 sources)Shellfish Containing Products; Translations: [Shellfish Containing Products]Food allergy (disorder)91-90-6732Cui [facility] (20 sources)Iodine; Translations: [iodine]Drug Oblftvq01-10-7979Qizyozvk, Unknown (qualifier value), AnaphylaxisAVIRIVERSIDE TAPPAHANNOCK [facility] (20 sources)Penicillin GDrug Celhcbm49-03-6906RuwolQTOEL HEALTH (20 sources)ShellfishPropensity to adverse reactions to iimi65-14-2791Irhdldux, OtherCLEVELAND CLINIC [facility]CL[facility] (12 sources)Sulfonamides (Antibiotic)Propensity to adverse reactions to drug 61-97-3969TkjnpsfyDMUOZ HEALTH (11 sources)Penicillins (Antibiotic)Drug allergyUnkJohn E. Fogarty Memorial Hospital Poachable Other (20 sources)Shrimp productPropensity to adverse brdosppxa79-03-0367Uadqybn, Unknown Reaction, Swelling of Lip/Tongue/ThroatThe [facility] Hospital (11 sources)Sulfonamides (Antibiotic)Drug allergyBradley Hospital Poachable Other (5 sources)Penicillin; Translations: [penicillin]Drug AllergyUnknown (qualifier value)[facility] (1 source)Sulfonamides (Antibiotic); Translations: [sulfa drugs]Drug allergy Unknown (qualifier value)[facility] (1 source)No AlertPropensity to adverse reactions to uihd20-65-1596Sfzi. of Dermatology (1 source)PenicillinDrug Ieshjww93-43-6498Zumj. of Dermatology (1 source)Propensity to adverse reactions to vctm68-44-5439Nhvj. of Dermatology (1 source)IodineDrug Jbpklrp73-04-0320Sxg [facility] Repository (1 source)ShellfishDrug allergy (disorder)78-91-7748EqrMemorial Hospital Repository (4 sources)sulfADIAZINEDrug AllergyUnknowMilitary Health System Poachable Other (20 sources)Substance with sulfonamide structure and antibacterial mechanism of action (substance)Drug jhobsep44-55-2851Fztb, SwellingNortJeanes Hospital Poachable Other (1 source)sulfa drug; Translations: [sulfa drug]Propensity to adverse reactions to drug (disorder)[facility] Repository (20 sources)Penicillin VDrug Atfxxwi75-24-2235YDFI [facility] (20 sources)PenicillinsDrug Uhkukkt16-30-5684MrtibXYUT Healthcare (20 sources)Other; Translations: [OTHER]Allergy to vphbgqeyg64-10-6016ZxxycUKYB Healthcare (20 sources)Shellfish-Derived ProductsDrug Lsrfzzf94-66-8004KdiejjvpTXFN Healthcare (14 sources)Shellfish; Translations: [shellfish derived]Allergy to substance 14-22-2597Utwznld Reaction, Swelling of Lip/Tongue/ThroatThe [facility] (1 source)IodineDrug Efsyofo98-99-0411SxotxtsjoThe [facility] Hospital Repository (1 source)PenicillinsDrug allergy (disorder)64-71-4363QzajtvjfhThe [facility] Repository (1 source)Shrimp productDrug allergy (disorder)37-64-1121ZjfgmrstdThe [facility] (1 source)Sulfonamides (Antibiotic)Drug allergy (disorder)27-45-8975QpucgoanjThe [facility] Hospital Repository (5 sources)Shellfish Protein-Containing Drug ProductsDrug Lcpvjum03-74-6335 [facility] Medications Current Medications MedicationDrug Class(es)DatesSig (Normalized)Sig (Original)Accu-Chek Prachi Plus - (9 sources)Accu-Chek Prachi Plus - USE TO TEST BLOOD SUGAR DAILY for 50 Active acetaminophen 500 mg oral tablet (20 sources)Start: 52-46-1177misuoiauqmlor (Tylenol) 500 MG tablet Take by mouth every 6 (six) hours if needed 07/05/2023 ActiveStart: 22-75-7004yzec 2 tablets by mouth every four hours as neededacetaminophen 325 MG tablet Take 2 tablets by mouth every 4 hours as needed for Mild Pain. 50 tablet 1 03/15/2022 ActiveStart: 03-15-2022 End: 13-75-1040utix 1 tablet by mouth every six hoursacetaminophen (TYLENOL) tablet 1,000 mgStart: 73-99-2558tisu 2 tablets by mouth every eight hours Acetaminophen 500 mg Tablet Active 1000 MG PO Every 8 hours November 10, 2021 1:00am Pain Complies with drug therapyStart: 87-13-6114dfye 1 tablet by mouth four times daily as needed for painAcetaminophen 500 mg Tablet Active 500 MG PO Four times daily as needed for Pain November 10, 2021 12:00amStart: 04-27-2021 End: 42-22-2311bqtu 1 mg by mouth every six hours, then take 2 tablets by mouth every eight hoursTylenol Extra Strength 500 mg oral tablet mg tab(s), Oral, q6hr, taking 2 every 8 hours, Refills(s)0 Start Date: 04/27/21 Status: Orderedtake 2 tablets by mouth every eight hoursTylenol 8 Hour 650 MG 2 tablets as needed Orally every 8 hrs Activeacetaminophen 325 mg / HYDROcodone bitartrate 7.5 mg oral tablet (20 sources)Opioid AgonistHYDROcodone-acetaminophen ([place]) 7.5-325 MG tablet Activeamiodarone hydrochloride 200 mg oral tablet (20 sources)AntiarrhythmicStart: 01-31-2024 End: 72-81-5346usdx 1 tablet by mouth in the morningamiodarone (Pacerone) 200 MG tablet Take 200 mg by mouth in the morning. 02/09/2024 ActiveamLODIPine 5 mg oral tablet (20 sources)Dihydropyridine Calcium Channel BlockerStart: 01-11-2025 End: 80-98-1268svbn 2 tablets by mouth once daily at bedtimeAmlodipine 5 mg tablet Discontinued 10 MG PO Daily at bedtime January 11, 2025 12:57pm June 4:09pmStart: 02-28-2024 End: 36-76-8511disa 1 tablet by mouth once dailyamLODIPine (Norvasc) 5 MG tablet Take 5 mg by mouth Daily 02/28/2024 ActiveStart: 03-16-2022 End: 63-60-4218mgHLZDTgrv (NORVASC) tablet 5 mgStart: 03-15-2022 End: 58-38-1830malj 2.5 mg by mouth every twelve hours2.5 mg, Oral, EVERY 12 HOURS, First dose on Tue03/15/22 at 2100, Until Discontinued Hold for blood p ressure less than 1 20 mmHgStart: 09-24-2019 End: 62-05-2496klku 1 tablet by mouth once dailyAmlodipine 10 mg tablet Discontinued 10 MG PO Daily November 10, 2021 1:00am January 31, 2024 3:31pm Aspirin (20 sources)Platelet Aggregation Inhibitor, Nonsteroidal Anti-inflammatory Drug Start: 11-94-4739223330 Medication aspirin aspirin 300 mg 10/01/2022 Active (Outside)Start: 24-81-9155vbbr 1 tablet by mouth once daily in the morning Aspirin (Aspirin Childrens) 81 mg tablet,chewable Active 81 MG PO Every morning November 1021:00am On Hold: Resume on 10/24/24. Complies with drug therapyStart: 74-60-6745sdbzvwt Refills(s) 0 Start Date: 09/24/19 Status: Orderedtake 1 tablet by mouth once dailyaspirin 81 MG EC tablet Take 1 tablet by mouth Daily Activeatorvastatin 10 mg oral tablet (20 sources)HMG-CoA Reductase InhibitorStart: 10-17-2024 End: 83-86-4152ymfv 1 tablet by mouth once daily in the eveningAtorvastatin 10 mg tablet Active 10 MG PO Every evening 90 90 June 30, 2025 8:38pm Complies with drug therapyStart: 07-19-2024 End: 77-16-6569ltrg 1 tablet by mouth once daily in the eveningAtorvastatin 10 mg tablet Discontinued 0 .ROUTE .COMPLEX 90 July 19, 2024 12:34pm October 17, 2024 3:59pm TAKE ONE TABLET BY MOUTH EVERY EVENINGStart: 06-15-2012 End: 49-08-3921pmvy 1 tablet by mouth once daily at bedtimeAtorvastatin 10 mg tablet Discontinued 10 MG PO Daily at bedtime November 10, 2021 1:00am July 19, 2024 12:34pmbenazepril hydrochloride 20 mg oral tablet (20 sources)Angiotensin Converting Enzyme InhibitorStart: 70-22-8152ktgm 1 tablet by mouth once dailyBenazepril 20 mg tablet Active 0 .ROUTE .COMPLEX 90 3 June 17, 2025 7:35am TAKE 1 TABLET BY MOUTH DAILY Complies with drug therapyStart: 09-20-2024 End: 37-45-1353ogvsjtnvos (Lotensin) 20 MG tablet 09/20/2024 ActiveStart: 06-24-2024 End: 65-16-8326zyri 1 tablet by mouth once dailyBenazepril 20 mg tablet Discontinued 0 .ROUTE .COMPLEX 90 3 June 24, 2024 5:56pm October 17, 2024 3:59pm TAKE 1 TABLET BY MOUTH DAILYStart: 01-31-2024 End: 17-83-5003keft 1 tablet by mouth once dailyBenazepril 20 mg tablet Discontinued 20 MG PO Daily January 31, 2024 12:00am June 24, 2024 5:56pm Start: 50-62-6000dyuf 1 tablet by mouth in the morningbenazepril (Lotensin) 20 MG tablet Take 20 mg by mouth in the morning. 0 07/09/2022 Activecarvedilol 12.5 mg oral tablet (20 sources)alpha-Adrenergic Dominic, beta-Adrenergic BlockerStart: 08-21-2024 carvedilol (Coreg) 12.5 MG tablet 08/22/2024 ActiveStart: 04-04-2024 End: 64-91-0779idgsyxfrol (Coreg) 6.25 MG tablet 06/10/2024 ActiveStart: 01-31-2024 End: 68-69-8441etvl 1 tablet by mouth twice dailyCarvedilol 12.5 mg tablet Discontinued 12.5 MG PO Twice daily January 31, 2024 12:00am April 04496192:40am Start: 03-15-2022 End: 43-27-6867vagm 6.25 mg by mouth every twelve hours6.25 mg, Oral, EVERY 12 HOURS, First dose on Tue03/15/22 at 2100, Until Discontinued Start: 09-24-2019 End: 23-81-7296bpel 1 tablet by mouth twice dailyCarvedilol 6.25 mg tablet Discontinued 6.25 MG PO Twice daily November 10, 2021 1:00am January 31, 2024 8:48amtake 1 tablet by mouth every twelve hoursCarvedilol 12.5 MG 1 tablet with food Orally Twice a day Activecarvedilol (Coreg) 12.5 MG tablet every 12 (twelve) hours. 0 Activecelecoxib 200 mg oral capsule (4 sources)Nonsteroidal Anti-inflammatory DrugStart: 77-88-6694iipq 1 mg by mouth twice dailyCeleBREX 200 mg Cap mg cap(s), Oral, BID, Refills(s) 0 Start Date: 09/24/19 Status: Ordered End: 46-19-9331znob 1 capsule by mouth once dailycelecoxib 200 MG Cap capsule Take 200 mg by mouth daily. 0 2022 Discontinued (Medication Reconciliation (suppress cancel msg))ciprofloxacin 500 mg oral tablet (9 sources)Quinolone AntimicrobialStart: 08-59-1026gmaq 1 tablet by mouth every twelve hoursclindamycin 300 mg oral capsule (20 sources)Lincosamide AntibacterialStart: 33-23-5889mxzf 1 capsule by mouth twice dailyclindamycin (Cleocin) 300 MG capsule Indications: Basal cell carcinoma (BCC) of dorsum of nose 1 capsule by mouth twice a day for 10 days 20 capsule 10/16/2024 ActiveStart: 04-08-2022 End: 54-27-3128qibldxkzvto 150 MG capsule Take 4 capsules 1 hour before the procedure 8 capsule 1 04/08/2022 04/08/2023 ActiveclonazePAM 1 mg oral tablet (20 sources)BenzodiazepineStart: 03-15-2022 End: 01-63-1723eulf 1 tablet by mouth once daily at bedtime0.5 mg, Oral, DAILY AT BEDTIME, First dose on Tue03/15/22 at 2100, Until Discontinued If given by en teral tube: Disperse the crushed tablet in at least 10 mL of water. (Using at least 10 mL helps prevent adherence of the medication to the plastic tube.) Flush tube with at least 10 mL of water before and after. Hold if decreased respiratory drive or mental status after anesthesiaStart: 11-10-2021 End: 81-50-9618fvxgwjvKDZ (KlonoPIN) 1 MG tablet Indications: PLMD (periodic limb movement disorder) 1-2 tablet atbedtime 180 tablet 10/03/2024 ActiveStart: 78-70-1895rodk 2 tablets by mouth once daily at bedtimeClonazepam 1 mg tablet Active 2 MG PO Daily at bedtime November 10, 2021 1:00am Complies with drug therapyStart: 68-59-4308ptyw 1 tablet by mouth three times dailyclonazepam 1 mg Tab mg tab(s), Oral, TID, Refills(s) 0 Start Date: 09/24/19 Status: Ordered Start: 01-16-2018 End: 18-54-4578fgqagexHRS 0.5 MG Tab tablet 1 mg. 0 01/16/2018 2022 Discontinued (Medication Reconciliation (suppress cancel msg))docusate sodium 100 mg oral capsule (8 sources)Start: 03-15-2022 End: 26-17-1353rxpf 1 capsule by mouth twice dailydocusate 100 MG capsule Take 1 capsule by mouth 2 times daily. 60 capsule 0 03/15/2022 Activefluorouracil 50 mg/ml topical cream (4 sources)Nucleoside Metabolic InhibitorStart: 07-04-2025 End: 48-44-1644tbwhapfjrsks (Efudex) 5 % cream Indications: Actinic keratosis Apply topically in the morning and before bedtime. Apply to directed areas on face, scalp, ears, and back of the hands, bid x 14 days. 40 g 07/04/2025 09/26/2025 Activegabapentin 300 mg oral capsule (20 sources)Anti-epileptic AgentStart: 39-18-4390dkzdiebtgp (Neurontin) 300 MG capsule 01/22/2023 Activeglimepiride 1 mg oral tablet (5 sources)SulfonylureaStart: 28-54-2556flxe 0.5 mg by mouth once daily at breakfastGlimepiride 1 mg tablet Active 0.5 MG PO Every morning 45 90 3 February 13, 2025 12:00am administer with breakfast Complies with drug therapyStart: 01-11-2025 End: 59-58-6134zdqg 0.5 mg by mouth at mealtimeGlimepiride 1 mg tablet Discontinued 0.5 MG PO Daily 15 30 5 January 11, 2025 12:00am February 13, 2025 11:41am Take 30 minutes prior to first meal of dayStart: 47-17-4505ujsy 1 tablet by mouth once dailyglimepiride 1 mg Tab mg tab(s), Oral, Daily, Refills(s) 0 Start Date: 09/24/19 Status: ArevndqPifdopazssd-Mwwildolu-Eeo C-Mn (Glucosamine- Chondroitin) capsule (2 sources)Vspshacwwnk-Zvcsdouqp-Qda C-Mn (Glucosamine-Chondroitin) capsule Take by mouth. 0 ActivelevETIRAcetam 500 mg oral tablet (20 sources)Start: 47-07-8872gsoUBPCJwhjwh (Keppra) 500 MG tablet 01/22/2023 Activelevothyroxine sodium 0.075 mg oral tablet (7 sources)l-ThyroxineStart: 05-13-2025 End: 32-77-9563vocx 1 tablet by mouth once dailyLevothyroxine 75 mcg tablet Active 75 MCG PO Daily 90 90 3 July 12, 2025 10:33am Complies withdrug therapyStart: 04-02-2025 End: 34-96-6396fbnn 1 tablet by mouth once dailyLevothyroxine 25 mcg tablet Discontinued 25 MCG PO Daily 30 30 5 April 02, 2025 12:00am May 13, 2025 1:52pmStart: 01-11-2025 End: 50-71-7224vezf 1 tablet by mouth once dailyLevothyroxine 25 mcg tablet Discontinued 25 MCG PO Daily 30 30 2 January 11, 2025 12:00am January 11, 2025 12:57pmmeloxicam 15 mg oral tablet (20 sources)Nonsteroidal Anti-inflammatory Drugmeloxicam (Mobic) 15 MG tablet ActivemetFORMIN hydrochloride 850 mg / pioglitazone 15 mg oral tablet (20 sources)Biguanide, Peroxisome Proliferator Receptor alpha Agonist, Peroxisome Proliferator Receptor gamma Agonist, Thiazolidinedionetake 15-850 mg by mouth in the morningpioglitazone-metFORMIN (ACTOPlus Met) 15-850 MG tablet Take 1 tablet by mouth in the morning. ActiveMulti Vitamin+ (1 source)Start: 18-22-5388Yrztj Vitamin+ Refill(s) 0 Start Date: 09/24/19 Status: OrderedMultiple Vitamin (Multi Vitamin) tablet (20 sources)Multiple Vitamin (Multi Vitamin) tablet Take by mouth ActiveMultiple Vitamins-Minerals (PRESERVISION AREDS PO) (10 sources)Multiple Vitamins-Minerals (PRESERVISION AREDS PO) Take by mouth. 0 OgiggcKdmnulvhzofv-Qpfnrkdr-Fnemgg (A Thru Z High Potency) tablet (14 sources)Start: 10-10-5681giqs 1 tablet by mouth twice daily Aorffegdjzwa-Hrsjihan-Efxjnm (A Thru Z High Potency) tablet Active 1 TAB PO Twice daily November 10, 2021 1:00am Complies with drug therapyStart: 85-82-0566lfvp 1 tablet by mouth twice aufqvUbtvxwucrzmn-Fuzypncr-Uboiky (A Thru Z High Potency) tablet Active 1 TAB PO Twice daily November 10, 2021 12:00am Start: 26-11-8908gqjf 1 tablet by mouth twice myuodEodoafvyrezj-Tidcgajx-Ufgvdk (A Thru Z High Potency) tablet Active 1 TAB PO Twice daily November 10, 2021 1:00amStart: 01-56-6481skfu 1 tablet by mouth once daily Oozwgziidpjk-Oyzgrbqg-Gegoad (A Thru Z High Potency) tablet Active 1 TAB PO Daily November 10, 2021 1:00ammupirocin 0.02 mg/mg topical ointment (20 sources)RNA Synthetase Inhibitor AntibacterialStart: 90-28-9994pitdxjwle (Bactroban) 2 % ointment 06/04/2024 ActiveStart: 06-04-2024 End: 39-78-7705Eqjdukkvy 2 % ointment Discontinued 1 APPLIC TOPICAL Twice daily 22 0 June 04, 2024 12:00am October 17, 2024 3:59pm Abrasion of ear canal Abrasion of unspecified ear, initial encounteromeprazole 20 mg delayed release oral capsule (20 sources)Proton Pump InhibitorStart: 12-27-2017 End: 55-87-7301qftlcnrrio (PriLOSEC) [address] capsule 04/22/2022 Active pantoprazole 40 mg delayed release oral tablet (20 sources)Proton Pump InhibitorStart: 39-55-8364jtof 1 tablet by mouth once daily 30 minutes before breakfastPantoprazole 40 mg tablet,delayed release (DR/EC) Active 0 .ROUTE .COMPLEX 90 3 June 16, 2025 5:05pm TAKE 1 TABLET BY MOUTH DAILY ON AN EMPTY STOMACH 30 MINUTES BEFORE BREAKFAST Complies with d rug therapyStart: 07-09-2024 End: 56-75-1304ywabrlaopjwi (ProtoNix) 40 MG EC tablet 07/10/2024 ActiveStart: 03-15-2022 End: 33-30-2897eaho 40 mg by mouth once daily40 mg, Oral, DAILY EARLY EVENING, First dose on Tue03/15/22 at 1800, Until Discontinued, Indications: Inpt Stress Ulcer EbjnwolwwknMnfeqknbpca-Mbajxscp-Zbnasrulw 1-0.5-0.075 % solution (12 sources)Start: 30-76-1802Atlozculgbg-Moxiflox-Bromfenac 1-0.5-0.075 % solution Indications: Age-related nuclear cataract of both eyes Administer 1 drop into affected eye(s) in the morning and 1 drop at noon and 1 drop in the evening and 1 drop before bedtime. 10 mL 1 12/28/2024 Activeprimidone 250 mg oral tablet (1 source)Anti-epileptic AgentStart: 85-40-257477215 Medication omeprazole 20 mg capsule,delayed release omeprazole 20 mg capsule,delayed release 20 mg 08/21/2022 Active (Outside)propafenone hydrochloride 150 mg oral tablet (20 sources)AntiarrhythmicStart: 09-24-2019 End: 85-17-1393arimqhkujao (Rythmol) 150 MG tablet Take by mouth 07/06/2022 Activetherapeutic multivitamin-minerals tablet (7 sources)Start: 32-66-7747yyak 1 tablet by mouth at bedtimetherapeutic multivitamin-minerals tablet Take 1 tablet by mouth at bedtime. 30 tablet 0 03/15/2022 ActivetraZODone hydrochloride 50 mg oral tablet (20 sources)Serotonin Reuptake InhibitorStart: 01-15-2025 End: 63-51-7682bpgb 1 tablet by mouth once daily at bedtimeTrazodone 50 mg tablet Active 0 .ROUTE .COMPLEX 90 June 27, 2025 10:10am TAKE ONE TABLET BY MOUTH EVERY NIGHT AT BEDTIME Complies with drug therapyStart: 01-23-2024 End: 55-01-5315kcne 1 tablet by mouth once daily at bedtimeTrazodone 50 mg tablet Discontinued 0 .ROUTE .COMPLEX 90 July 25, 2024 6:59am October 17, 2024 3:59pm TAKE ONE TABLET BY MOUTH EVERY NIGHT AT BEDTIMEStart: 68-76-7750ildf 1 tablet by mouth once daily at bedtimeTrazodone Active 0 .ROUTE .COMPLEX 90 January 23, 2024 10:08pm TAKE ONE TABLET BY MOUTH EVERY NIGHTAT BEDTIMEStart: 11-10-2021 End: 04-17-1598uspg 1 tablet by mouth at bedtimetraZODone (Desyrel) 50 MG tablet Take 1 tablet by mouth at bedtime 04/30/2022 ActiveStart: 19-36-2594xhqc 1 tablet by mouth at bedtimetraZODone (Desyrel) 50 MG tablet Take 1 tablet by mouth at bedtime. 0 04/30/2022 ActiveTylenol 8 Hour 650 MG (7 sources)take 2 tablets by mouth every eight hours as neededtake 2 tablets by mouth every eight hours as neededTylenol 8 Hour 650 MG 2 tablets as needed Orally every 8 hrs Active Completed/Discontinued Medications MedicationDrug Class(es)DatesSig (Normalized)Sig (Original)benzonatate 200 mg oral capsule (20 sources)Non-narcotic AntitussiveStart: 05-16-2024 End: 35-29-2038wgmg 1 capsule by mouth three times dailyBenzonatate 200 mg capsule Discontinued 200 MG PO Three times daily 30 10 0 May 16, 2024 12:00am June 04, 2024 11:19amStart: 11-51-7028dmjaekxbzse (Tessalon) 100 MG capsule Take 100 mg by mouth as needed in the morning and 100 mg as needed at noon and 100 mg as needed in the evening. 11/28/2023 Activebisacodyl 10 mg rectal suppository (1 source)Stimulant LaxativeStart: 03-15-2022 End: 68-32-8470vwmiklnko (DULCOLAX) suppository 10 mgceFAZolin 2000 mg injection (1 source)Cephalosporin AntibacterialStart: 03-15-2022 End: 63-13-2507xrew 2 g intravenously every eight hoursceFAZolin (ANCEF) 2 g in dextrose 100 mL premix IVPBclopidogrel 75 mg oral tablet (20 sources)P2Y12 Platelet InhibitorStart: 01-31-2024 End: 00-05-3172pzua 1 tablet by mouth once dailyClopidogrel (Plavix) 75 mg tablet Discontinued 75 MG PO Daily January 31, 2024 12:00am August 21, 2024 10:53am On Hold: Resume on 02/26/24.dexamethasone phosphate 10 mg/ml injectable solution (1 source)CorticosteroidStart: 03-16-2022 End: 12-78-4689ttxQJDORwbctw (DECADRON) injection 10 mg24 hr dilTIAZem hydrochloride 120 mg extended release oral capsule (3 sources)Calcium Channel BlockerStart: 12-27-2017 End: 27-54-4410hbcorczyz 120 MG Cap SR 24HR capsule XLdocusate sodium 50 mg / sennosides, alf 8.6 mg oral tablet (1 source)Start: 03-15-2022 End: 68-86-8951qmgih-docusate (SENOKOT-S) 8.6-50 MG per tablet 2 tablet doxycycline hyclate 100 mg oral capsule (14 sources)Tetracycline-class DrugStart: 01-31-2024 End: 20-94-2773smhi 1 capsule by mouth twice dailyDoxycycline Hyclate 100 mg capsule Discontinued 100 MG PO Twice daily 14 7 0 January 31, 2024 12:00am February 16, 2024 4:13pmempagliflozin 10 mg oral tablet (2 sources)Sodium-Glucose Cotransporter 2 InhibitorStart: 01-10-2025 End: 96-61-7801prbe 1 tablet by mouth once daily in the morningEmpagliflozin (Jardiance) 10 mg tablet Discontinued 10 MG PO Every morning 30 30 0 January 102:00am February 13, 2025 11:41amferrous sulfate 325 mg oral tablet (5 sources)Start: 03-16-2022 End: 23-27-5803ffyl 325 mg by mouth once mg, Oral, DAILY, First dose on Tue03/16/22 at 0900, Until DiscontinuedhydroCHLOROthiazide 12.5 mg oral tablet (3 sources)Thiazide DiureticStart: 02-03-2018 End: 95-23-9864ynhutFQDMIZfxuvfkyr 12.5 MG tablet1 ml HYDROmorphone hydrochloride 1 mg/ml cartridge (1 source)Opioid AgonistStart: 03-15-2022 End: 89-81-6657jtda 0.5 mg intravenously every four hours as neededHYDROmorphone (DILAUDID) injection 0.5 mginsulin regular (HumuLIN R;NovoLIN R) injection (1 source)Start: 03-15-2022 End: 99-44-5385dxdfypa regular (HumuLIN R;NovoLIN R) injectionlisinopril 5 mg oral tablet (1 source)Angiotensin Converting Enzyme InhibitorStart: 03-16-2022 End: 59-22-1107ffxo 10 mg by mouth once daily10 mg, Oral, DAILY, First dose on Tue03/16/22 at 0900, Until Discontinued Hold if blood pressure less than 1 20 mmHgmetFORMIN hydrochloride 500 mg oral tablet (3 sources)Biguanide End: 25-15-2619ncjg 1 tablet by mouth twice daily at mealtimemetformin 500 MG Tab tablet Take 500 mg by mouth 2 times daily with meals. 0 2022 Discontinued (Medication Reconciliation (suppress cancel msg))metroNIDAZOLE 500 mg oral tablet (9 sources)Nitroimidazole AntimicrobialStart: 06-25-9307zhzt 1 tablet by mouth every eight hoursmetroNIDAZOLE 500 MG 1 tablet Orally Three times a day for 7 days Oct, Not-Taking/PRNMolnupiravir (17 sources)Start: 05-16-2024 End: 13-89-9535pcwr 1 capsule by mouth every twelve hoursMolnupiravir 200 mg capsule Discontinued 800 MG PO Every 12 hours 40 5 0 May 16, 2024 2:04pm ptember 2023 11:19amStart: 05-16-2024 End: 42-83-0465dbwn 1 capsule by mouth every twelve hoursMolnupiravir 200 mg capsule Discontinued 800 MG PO Every 12 hours 40 5 May 16, 2024 2:04pm May [facility] 2023 11:19amStart: 05-16-2024 End: 88-04-6768qcuz 1 capsule by mouth every twelve hoursMolnupiravir 200 mg capsule Discontinued 800 MG PO Every 12 hours 40 5 May 16, 2024 1:04pm May [facility]2023 10:19amStart: 05-16-2024 End: 73-04-3237cwrm 800 mg by mouth every twelve hoursMolnupiravir Discontinued 800 MG PO Every 12 hours 40 May 16, 2024 2:04pm June 04, 2024 11:19amStart: 05-16-2024 End: 03-68-9845ythh 1 capsule by mouth every twelve hoursMolnupiravir 200 mg capsule Discontinued 800 MG PO Every 12 hours 40 5 May 16, 2024 12:00am A [facility] 2023 2:05pmStart: 05-16-2024 End: 92-96-2702fuyl 1 capsule by mouth every twelve hoursMolnupiravir 200 mg capsule Discontinued 800 MG PO Every 12 hours 40 May 16, 2024 12:00am Apr 2:05pmStart: 05-16-2024 End: 14-95-9051sfrp 1 capsule by mouth every twelve hoursMolnupiravir 200 mg capsule Discontinued 800 MG PO Every 12 hours 40 May 15, 2024 11:00pm Apr 1:05pmStart: 05-16-2024 End: 83-79-2402lfje 800 mg by mouth every twelve hoursMolnupiravir Discontinued 800 MG PO Every 12 hours 40 May 16, 2024 12:00am May 1642:05pm Start: 24-62-7460vlvw 800 mg by mouth every twelve hoursMolnupiravir Active 800 MG PO Every 12 hours 40 May 16, 2024 12:00amMultiple Vitamins-Minerals (MULTIVITAMIN ADULT PO) (3 sources) End: 77-36-4268Yiaarhzx Vitamins-Minerals (MULTIVITAMIN ADULT PO) Take by mouth. 0 2022 Discontinued (Medication Reconciliation (suppress cancel msg)) Multiple Vitamins-Minerals (MULTIVITAMIN ADULT PO) Take by mouth. 0 Active Multivitamins (11 sources)Multivitamins as directed Orally Not-Taking/PRNMultivitamins as directed Orally Not-TakingMultivitamins as directed Orally Active2 ml ondansetron 2 mg/ml injection (1 source)Serotonin-3 Receptor AntagonistStart: 03-15-2022 End: 86-70-5646onhd 4 mg intravenously every four hours as neededondansetron 4mg/2ml (ZOFRAN) injection 4 mgoxyCODONE hydrochloride 5 mg oral tablet (5 sources)Opioid AgonistStart: 03-15-2022 End: 67-62-0206wxfz 5-10 mg by mouth every four hours as neededoxyCODONE (ROXICODONE) tablet 5-10 mgStart: 03-15-2022 End: 40-74-8925icoJSUDYU 5 MG tablet Indications: Acute postoperative pain of right knee Take one to two tabs every 4-6 hours as needed for severe pain. Wean as tolerated 30 tablet 0 03/15/2022 Xosttc479 ml ropivacaine hydrochloride 2 mg/ml injection (1 source)Amide Local AnestheticStart: 03-15-2022 End: 35-81-9366npuhycnjyzf (NAROPIN) 0.2 % On-Q pump 750 mLropivacaine (NAROPIN) 1 % 400 mg, EPINEPHrine PF (ADRENALIN) 1 MG/ML 1 mg, ketorolac (TORADOL) 30 MG /ML 30 mg, cloNIDine 100 MCG/ML 226 mcg, sodium chloride 0.9% 45 mL 89.26 mL (total volume) (1 source)Start: 03-15-2022 End: 55-82-5249cpvfmeydjvo (NAROPIN) 1 % 400 mg, EPINEPHrine PF (ADRENALIN) 1 MG/ML 1 mg, ketorolac (TORADOL) 30 MG/ML 30 mg, cloNIDine 100 MCG/ML 226 mcg, sodium chloride 0.9% 45 mL 89.26 mL (total volume)1000 ml sodium chloride 9 mg/ml injection (3 sources)Start: 03-15-2022 End: 74-16-3629scukbb chloride 0.9 % irrigationStart: 03-15-2022 End: 74-92-5328rvwsnj chloride 0.9% IV solutionsodium phosphate, dibasic 35.5 mg/ml / sodium phosphate, monobasic 96.4 mg/ml enema (1 source)Start: 03-15-2022 End: 08-28-0018evwznw phosphate w/sodium biphosphate (FLEETS) enema 1 enema tranexamic acid 650 mg oral tablet (1 source)Antifibrinolytic AgentStart: 03-15-2022 End: 79-88-8141eltrsqgnxh acid (LYSTEDA) tablet 1,950 mgvancomycin 1000 mg injection (1 source)Glycopeptide AntibacterialStart: 03-15-2022 End: 37-27-0346phwqdutxga (VANCOCIN) injectionwarfarin sodium 7.5 mg oral tablet (20 sources)Vitamin K AntagonistStart: 09-24-2019 End: 56-48-4610Tbuaoyxe 7.5 mg tablet Discontinued 7.5 MG PO As Directed November 10, 2021 1:00am January 31, 2024 3:31pm 7.5mg on Sat. 5mg T-L-H-W-Th-F Start: 63-98-5875sidesmbd 5 MG tablet 1 tablet. 0 01/02/2018 ActiveStart: 16-93-0292krlirtmr 5 MG tablet 7 mg. Tuesday and Tuesday 7.5 mg, S,M,W,THUR,F 5 mg daily 0 01/02/2018 ActiveWarfarin 5mg 5 mg 1 tablet orally MWTHFSS Active Warfarin Sodium Activezolpidem tartrate 5 mg oral tablet (1 source)gamma-Aminobutyric Acid-ergic AgonistStart: 03-15-2022 End: 56-58-7141jgpoqtmr (AMBIEN) tablet 5 mg Problems Active Problems Problem ClassificationProblemDateDocumented DateEpisodic/ChronicAbdominal hernia (1 source)Diaphragmatic hernia without obstruction or gangrene; Translations: [DIAPH HERNIA W/O OBST/GANGRENE]Onset: 66-23-2525GfmlbaghNzojdxfto pain (20 sources)Generalized abdominal pain; Translations: [Generalized abdominal pain]Onset: 21-78-4663AgwykxvqNqbsmn; peripheral; and visceral artery aneurysms (1 source)Aneurysm of ascending aorta; Translations: [Ascending aortic aneurysm] 93-15-2178UqvbqwuTyirytz on above:Echo: Ao 4.0cm - iliary tract disease (20 sources)Obstruction of bile duct; Translations: [Obstruction of bile duct] Onset: 10-20-2012 Resolved: 810750-27-6745OhyutsbZtjhlbv on above:Problem List clean-up per request of Phys. EHR CmteCardiac dysrhythmias (20 sources)Paroxysmal atrial fibrillation; Translations: [Paroxysmal atrial fibrillation]Onset: 09-17-2013 Resolved: 09-21-5826NwmawrbWtzuahp on above:Echo: LVEF 60%, normal RV size/function, IVAN - 01/2024, 03/2024Echo: LVEF 60%, normal - RV size/function, IVAN - 01/2024, 03/2024,LAAO - 12/2023Echo: LVEF 60%, normal RV size/function, IVAN - 03/2024,LAAO - 4Chronic kidney disease (20 sources)Chronic kidney disease stage 3A ; Translations: [Stage 3a chronic kidney disease]Onset: 03-15-2022 Resolved: 47-73-3133RahupibIxdssvtmswuz of device; implant or graft (1 source)Joint pain; Translations: [Pain due to internal orthopedic prosthetic devices, implants and grafts,sequela]EpisodicComplications of surgical procedures or medical care (9 sources)Retained cholelithiasis following cholecystectomy; Translations: [Retained cholelithiasis followingcholecystectomy]EpisodicCongestive heart failure; nonhypertensive (12 sources)Chronic diastolic heart failure; Translations: [Chronic diastolic (congestive) heart failure]ChronicCoronary atherosclerosis and other heart disease (20 sources)Coronary arteriosclerosis; Translations: [Atherosclerotic heart disease of [place] coronary artery without angina pectoris]Onset: 06-23-2024 97-17-9835JzqrmyeWiqvkewogm and other anemia (10 sources)Anemia, unspecified; Translations: [Anemia, unspecified]Onset: 512673-33-5454UflhpwqzOtjpufrl mellitus with complications (20 sources)Hyperglycemia due to type 2 diabetes mellitus; Translations: [Type 2 diabetes mellitus with hyperglycemia]Onset: 73-65-8439ZrxouheDtmhnkuy mellitus without complication (20 sources)Type 2 diabetes mellitus without complication; Translations: [Type 2 diabetes mellitus without complications]Onset: 10-17-2012 Resolved: 25-23-6315CwfqoknEcwpvqcapnw of prostate (20 sources)Benign prostatic hypertrophy with outflow obstruction; Translations: [Benign prostatic hyperplasia with lower urinary tract symptoms]Onset: 11-02-4200UdqxbirBvzmmgiterks with complications and secondary hypertension (10 sources)Chronic kidney disease due to hypertension; Translations: [Hypertensive chronic kidney disease withstage 1 through stage 4 chronic kidney disease, or unspecified chronic kidney disease]Onset: 90-99-0653Mlwxpeg Intracranial injury (1 source)Traumatic subarachnoid hemorrhage without loss of consciousness, initial encounter; Translations: [TRAUMATIC SA HEMORRHAGE NO LOC INIT]Onset: 85-07-5255OzslnzhnErfawfvez of skin (5 sources)History of malignant melanoma of the skin; Translations: [Personal history of malignant melanoma ofskin]81-78-5503NkeemwkvTyvwezrnzctea mental health disorders (20 sources)Primary insomnia; Translations: [Primary insomnia]Onset: 06-23-2024 45-55-2140UgvxhvmTbmuahoca of unspecified nature or uncertain behavior (3 sources)Neoplastic disease; Translations: [Neoplasm of unspecified behavior of bone, soft tissue, and skin]93-82-5714VksgdpimIhxxt acquired deformities (4 sources)Surgical wound finding; Translations: [Acquired deformity of nose] 29-07-8636HooqflizThbeu aftercare (9 sources)Long-term current use of anticoagulant; 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]EpisodicOther aftercare (2 sources)snf (current) use of anticoagulants; Translations: [STRAINER CLEANER CURRNT USE ANTICOAGULANTS]Onset: 62-54-7871TfowqqkdKexdi aftercare (5 sources)Encounter for therapeutic drug level monitoring; Translations: [ENC THERAPEUTC DRUG LEVL MONITORING]Onset: 01-38-3768AqffrzhiHgpev aftercare (1 source)snf (current) 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; Translations: [MCFP CURRENT USE OF ASPIRIN]Onset: 51-98-0389PvodwmtgNvhlp aftercare (1 source)Other skilled nursing (current) drug therapy; Translations: [OTH MCFP CURRENT DRUG THERAPY]Onset: 01-76-2672SkvjjlhhLuick and unspecified benign neoplasm (5 sources)Melanocytic nevus of trunk; Translations: [Melanocytic nevi of trunk] 62-82-9334UvcwwxkxAkmir and unspecified benign neoplasm (2 sources)Melanocytic nevus of lower limb; Translations: [Melanocytic nevi of unspecified lower limb, including hip]13-85-6400KqqrtdvmUfwsh circulatory disease (5 sources)Spider nevus; Translations: [Nevus, non-neoplastic]93-16-6815Xlxylmog Other circulatory disease (5 sources)Telangiectasia of skin of face; Translations: [Nevus, non-neoplastic] 82-19-7582IjxbrdpvUbgpn connective tissue disease (3 sources)History of right total knee replacement; Translations: [Presence of right artificial knee joint]ChronicOther connective tissue disease (1 source)Presence of left artificial knee joint; Translations: [PRESENCE LEFT ARTIFICIAL KNEE JOINT]Onset: 92-90-6793EzziuntOzejh connective tissue disease (6 sources)Presence of right artificial knee joint; Translations: [PRESENCE RT ARTIFICIAL KNEE JOINT]Onset: 51-78-2749GadpzayQgvff diseases of kidney and ureters (1 source)Urinary tract obstruction; Translations: [Other obstructive and reflux uropathy]Onset: 34-12-7723MzhtsffzMgxhm diseases of kidney and ureters (9 sources)Acquired renal cystic disease; Translations: [Cyst of kidney, acquired]EpisodicOther ear and sense organ disorders (1 source)Unspecified hearing loss, unspecified ear; Translations: [UNS HEARING LOSS UNSPECIFIED EAR]Onset: 69-58-4842MpthchhFdhfp endocrine disorders (9 sources)Other specified disorders of adrenal gland; Translations: [Nodule of adrenal cortex (disorder)]ChronicOther eye disorders (20 sources)Dry eyes; Translations: [Dry eye syndrome of bilateral lacrimal glands]Onset: 619600-16-0829HoixndqhLvskw gastrointestinal disorders (9 sources)Pharyngeal dysphagia; Translations: [Dysphagia, pharyngoesophageal phase]EpisodicOther hereditary and degenerative nervous system conditions (1 source)Restless legs syndrome; Translations: [RESTLESS LEGS SYNDROME]Onset: 39-35-9303ArnhqpgGrdlf injuries and conditions due to external causes (9 sources)History of fall; Translations: [History of falling]EpisodicOther injuries and conditions due to external causes (9 sources)Choking due to food in larynx; Translations: [Food in larynx causing asphyxiation, initial encounter]EpisodicOther liver diseases (9 sources)Steatosis of liver; Translations: [Fatty (change of) liver, not elsewhere classified]ChronicOther liver diseases (3 sources)Fatty (change of) liver, not elsewhere classifiedChronicOther lower respiratory disease (4 sources)Snoring; Translations: [Snoring]33-13-6038GpnrelfjBvkes nervous system disorders (1 source)Other acute postprocedural pain; Translations: [Pain in joint, lower leg]EpisodicOther non-traumatic joint disorders (1 source)Pain in right knee; Translations: [Pain in joint, lower leg]Episodic Other nutritional; endocrine; and metabolic disorders (11 sources)Obese class II; Translations: [Body mass index (BMI) 36.0-36.9, adult]ChronicOther nutritional; endocrine; and metabolic disorders (20 sources)Obesity; Translations: [Obesity, unspecified]Onset: 03-22-2024 08-49-9541KidzjtoVtpsa nutritional; endocrine; and metabolic disorders (15 sources)Obesity, unspecified; Translations: [Obesity, unspecified]01-31-2024 ChronicOther screening for suspected conditions (not mental disorders or infectious disease) (11 sources)Ultrasound scan abnormal; Translations: [Abnormal findings on diagnostic imaging of other specifiedbody structures]ChronicOther screening for suspected conditions (not mental disorders or infectious disease) (12 sources)Coag./bleeding tests abnormal; Translations: [Abnormal coagulation profile]Onset: 31-07-0786BybyyubgJivksob on above:PSA: 2.15 - 11/2021, 1.89 - 06/2023, 1.77 - 07/2024Other skin disorders (5 sources)Seborrheic keratosis; Translations: [Other seborrheic keratosis] 79-01-9019MfkoecewJabdp skin disorders (5 sources)Lentiginosis; Translations: [Other melanin hyperpigmentation] 53-36-7220LauxbuneRdsca skin disorders (5 sources)Actinic keratosis; Translations: [Actinic keratosis]06-19-2024 EpisodicOther skin disorders (2 sources)Inflamed seborrheic keratosis; Translations: [Inflamed seborrheic keratosis]68-32-6696EwmvktkgLcxus skin disorders (2 sources)Sebaceous hyperplasia; Translations: [Other specified follicular disorders]84-09-0233FklhdokkZobpftppoy disorders (not diabetes) (20 sources)Disorder of pancreas; Translations: [Disease of pancreas, unspecified]Onset: 11-04-2021 Resolved: 24-77-1490UhbajdcxWekorcvdr by other medications and drugs (4 sources)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; Translations: [Poisoning by other antidysrhythmic drugs, accidental (unintentional), initial encounter] 81-92-1136CdzimqvkSmakvidq codes; unclassified (20 sources)Periodic limb movement disorder; Translations: [Periodic limb movement disorder]Onset: 991743-46-9595KujcqahCbmrmnwl codes; unclassified (20 sources)Obstructive sleep apnea (adult) (pediatric); Translations: [Obstructive sleep apnea (adult)(pediatric)]ChronicResidual codes; unclassified (1 source)Sleep apnea, unspecified; Translations: [SLEEP APNEA UNSPECIFIED] Onset: 58-26-5494KctupgzMrkunmdd codes; unclassified (20 sources)Hypersomnia; Translations: [Hypersomnia, unspecified]Onset: 398401-08-4988WxqspfeFyehziyb codes; unclassified (20 sources)Daytime somnolence; Translations: [Other hypersomnia]Onset: 457431-29-2502PbpzphyFhubouyb codes; unclassified (14 sources)Periodic leg movements of sleep ; Translations: [Periodic limb movement disorder]Onset: 698405-89-7590MnkjsqnNmqwfain codes; unclassified (5 sources)Other hypersomnia; Translations: [Hypersomnia, unspecified]Onset: 085067-87-1316CgnelzqSrukkprp codes; unclassified (1 source)No current problems or disability; Translations: [Other specified conditions influencing health status]Onset: 42-44-4875UspzwqvqWgllrvyl codes; unclassified (1 source)Acquired absence of other specified parts of digestive tract; Translations: [ACQ ABSENCE OTH PART DIGESTV TRACT]Onset: 40-89-2077Yvticjgd Retinal detachments; defects; vascular occlusion; and retinopathy (20 sources)Exudative age-related macular degeneration; Translations: [Exudative age-related macular degeneration, bilateral, with active choroidal neovascularization]Onset: 03-17-2023 Resolved: 543367-02-2102AhkonilHaijribjqz (except in labor) (9 sources)Other Gram-negative sepsis; Translations: [Enterobacter sepsis] EpisodicSkin and subcutaneous tissue infections (4 sources)Cellulitis of right upper limb; Translations: [Cellulitis and abscess of upper arm and forearm]66-32-6137KemeiczpWtbjmwdbhbg; intervertebral disc disorders; other back problems (3 sources)Cervicalgia; Translations: [CERVICALGIA]Onset: 61-00-0777Fwdbniay Sprains and strains (1 source)Strain of muscle, fascia and tendon at neck level, initial encounter; Translations: [STRN MUSC FASCTENDON NECK LEVL INT]Onset: 22-28-3449Lyvamaju Thyroid disorders (2 sources)Hypothyroidism; Translations: [Hypothyroidism, unspecified]04-02-2025 ChronicUnclassified (1 source)History of revision of left total knee arthroplasty; Translations: [History of revision of total replacement of left knee joint]Unclassified (1 source)Drug therapy ftfment69-46-7632Gfhzbsmqaxxk (5 sources)Chronic atrial fibrillation, unspecified; Translations: [CHRONIC ATRIAL FIBRILLATION UNSPEC]Onset: 72-10-5216Khiwq infection (3 sources)COVID-19; Translations: [Other specified viral infection]05-16-2024 Episodic Past or Other Problems Problem ClassificationProblemDateDocumented DateEpisodic/ChronicAcute cerebrovascular disease (20 sources)Hemorrhage into subarachnoid space of neuraxis; Translations: [Nontraumatic subarachnoid hemorrhage, unspecified]Onset: 2023 Resolved: 60-03-2547SiyoljgFvcrtjh tract disease (20 sources)Gallstone; Translations: [Calculus of gallbladder without cholecystitis without obstruction]Onset: 11-04-2021 Resolved: 69-70-2061GcsstjjqHagidbn on above:Problem List clean-up per request of Phys. EHR CmteCalculus of urinary tract (20 sources)Kidney stone; Translations: [Calculus of kidney]Onset: 04-26-2022 EpisodicCataract (20 sources)Bilateral age-related nuclear cataracts; Translations: [Age-related nuclear cataract, bilateral]Onset: 10-28-2023 Resolved: 674392-09-2550PphxwjqFtdmldm kidney disease (3 sources)Chronic kidney diseaseDeficiency and other anemia (20 sources)Anemia; Translations: [Anemia, unspecified]Onset: 07-11-2024 Resolved: 128552-86-5558XzxfgohkCinnknmf mellitus without complication (20 sources)Glycosuria; Translations: [Glycosuria]Onset: 04-29-2022 Resolved: 21-86-7681VnjhteutRfxcvmpbw of lipid metabolism (20 sources)Mixed hyperlipidemia; Translations: [Mixed hyperlipidemia]Onset: 03-15-2022 Resolved: 15-47-6986QwteclxUizyxqjgmzvpyz and diverticulitis (20 sources)Diverticular disease; Translations: [Diverticulosis of intestine, part unspecified, without perforation or abscess without bleeding]Onset: 10-17-2012 Resolved: 717467-23-5015CteaceoA Codes: Fall (20 sources)Fall (on) (from) unspecified stairs and steps, initial encounter; Translations: [Fall]Onset: 01-22-2023 Resolved: 599538-14-4786ImekcuedJqwkadneht disorders (20 sources)Gastroesophageal reflux disease without esophagitis; Translations: [Gastro-esophageal reflux disease without esophagitis]Onset: 03-15-2022 Resolved: 68-32-2091KhxbrydNqtzvmuxmv disorders (8 sources)Esophageal disorders; Translations: [Gastro-esophageal reflux disease with esophagitis, without bleeding]Essential hypertension (20 sources)Hypertensive disorder; Translations: [Essential hypertension]Onset: 10-17-2012 Resolved: 551193-26-2388GrxpstePiusx and electrolyte disorders (8 sources)Hyponatremia; Translations: [Hypo-osmolality and hyponatremia]Onset: 78-98-6364IlaucishOsikrczajcvwn symptoms and ill-defined conditions (20 sources)Proteinuria; Translations: [Proteinuria, unspecified]Onset: 04-29-2022 Resolved: 27-70-7642BxwwsjmxWsqqnvhx (20 sources)Glaucoma; Translations: [Unspecified glaucoma]Onset: 09-06-2023 Resolved: 261526-22-8414FazhkynHaalu valve disorders (20 sources)Non-rheumatic mitral regurgitation ; Translations: [Nonrheumatic mitral (valve) insufficiency]Onset: 09-17-2013 Resolved: 17-50-3958OqcwnvbRnctgaezxgqr; infection of eye (except that caused by tuberculosis or sexually transmitteddisease) (20 sources)Keratitis; Translations: [Other keratitis]Onset: 08-29-2023 Resolved: 892125-38-0199WvduztqkFqxcaxtzu of skin (20 sources)Melanoma in situ of other parts of face; Translations: [Melanoma in situ of face]Onset: 10-04-2022 Resolved: 948196-58-5884QeuryweLzfuzdhocod chest pain (20 sources)Chest pain; Translations: [Chest pain, unspecified]Onset: 07-11-2024 Resolved: 858755-37-0047MoctwxkpAppmavcxekxbws (20 sources)Osteoarthritis of right knee joint; Translations: [Unilateral primary osteoarthritis, right knee]Onset: 01-24-2023 Resolved: 59-23-5855OeftyueAdxns aftercare (1 source)Encounter for other plastic and reconstructive surgery following medical procedure or healed injury; Translations: [Encounter for other plastic and reconstructive surgery following medical procedure or healed injury]Onset: 32-89-4468KudgryfmPacmh circulatory disease (20 sources)Presence of other cardiac implants and grafts; Translations: [Other specified cardiac device in situ]Onset: 02-09-2024 Resolved: 441036-02-1142JenieuaLjitv connective tissue disease (20 sources)History of total knee arthroplasty; Translations: [Presence of right artificial knee joint]Onset: 03-15-2022 Resolved: 13-77-1152KsaaxwbTfanw connective tissue disease (2 sources)Repeated falls; Translations: [Repeated falls]Onset: 01-11-2025 EpisodicOther gastrointestinal disorders (4 sources)Dysphagia, pharyngoesophageal phase; Translations: [DYSPHAGIA PHARYNGOESOPHAGEAL PHASE]Onset: 33-29-1327DxjhlybfVjoss hereditary and degenerative nervous system conditions (20 sources)Restless legs; Translations: [Restless legs syndrome]Onset: 03-15-2022 Resolved: 59-40-1694DwawlueLbkad injuries and conditions due to external causes (4 sources)Food in larynx causing asphyxiation, initial encounter; Translations: [FOOD LARYNX CAUS ASPHYX INITIAL ENC]Onset: 81-13-1043UhyjfbmlPixbv non- epithelial cancer of skin (20 sources)Personal history of other malignant neoplasm of skin; Translations: [Basal cell carcinoma of face]Onset: 10-17-2012 Resolved: 478203-57-4496CqjimwooUkek-; endo-; and myocarditis; cardiomyopathy (except that caused by tuberculosis or sexually transmitted disease) (20 sources)Hemopericardium; Translations: [Hemopericardium, not elsewhere classified]Onset: 10-17-2023 Resolved: 969225-82-9446KtlosxqzZjlcvtwe codes; unclassified (20 sources)Obstructive sleep apnea syndrome; Translations: [Obstructive sleep apnea (adult) (pediatric)]Onset: 09-17-2013 Resolved: 529567-59-9681TwzrthvLjdnxvbb codes; unclassified (20 sources)Family history of malignant neoplasm of skin; Translations: [Family history of malignant neoplasm of other organs or systems]Onset: 09-06-2023 Resolved: 182167-07-1562CydrozfeLnnqwozwysc injury; contusion (20 sources)Abrasion of left cornea; Translations: [Injury of conjunctiva and corneal abrasion without foreign body, left eye, initial encounter]Onset: 08-29-2023 Resolved: 263493-52-7733TbflevhsKvpnweldniil (9 sources)Elevated transaminase level; Translations: [Elevated transaminase level] Results Test NameValueInterpretationReference RangeFacilityOptical coherence tomography study reporton [id number] HealthcareRadiology Study observation (narrative) [facility] HospitalDermatopathology examon [id number] HealthcareFinal DiagnosisSQUAMOUS CELL CARCINOMA IN-SITU. COMMENT: This material was reviewed with Dr. Almeida. [facility] HealthcareGross TextSTEWARD HEALTH [facility]ARE SYSTEM [id number] CodeD04.60NOMercy Hospital [place] Microscopic DescriptionMicroscopic examination performed.[facility] HealthcarePROTOCOL F - [place] HealthcareSpecimen type Nom (Spec) SPECIMEN: RIGHT UPPER ARM - POSTERIOR [facility]ie HospitalLesion biopsyon [id number] of biopsy: tangential Informed consent: discussed and [...] Photo taken Amount of lidocaine used: 0.5 [facility] StokesOffice Visiton 51-70-4008Lsazrl-up [id number] Tito Goncalves 1945 M Date Provider Department Center 06/25/2025 Daily-MADISON WOODARD Family History Problem Relation Age of Onset Cancer Mother Alcohol abuse Father Heart attack Other Family Status - Relation Status Age at Mother Father Brother Alive Other Level of Service:84876 MO OFFICE/OUTPATIENT ESTABLISHED MOD MDM 30 MIN (25) Reason for Visit and Comments: Follow-up [206333] - Patient is here today for a routine 6 month follow up. Patient complains of dizziness/lightheaded, after mowed grass, occasional arm and chest pain that comes goes no other symptoms associated. Patient denies SOB, STEPHENSON, Atrial Fibrillation [80] Hypertension [991558] Hyperlipidemia [182] Coronary Artery Disease [187] Dizziness [471333]NormalUnAdams County HospitalGlucose mean value [Mass/volume] in Blood Estimated from glycated hemoglobinOrdered By: Augustine Metz on 20-72-7123Wbiczvk glucose Estimated from glycated hemoglobin (Bld) [Mass/Vol]131 mg/dLThe [facility]vue HospitalHemoglobin A1c percentage Ordered By: Augustine Metz on 08-29-1490UwT6a (Bld) [Mass fraction]6.2 %4.5-6.2 The [facility] HospitalComment on above:ADA RECOMMENDED LIMIT 4.0 - 6.0ADA THERAPEUTIC TARGET < 7.0ACTION SUGGESTED> 7.0Laboratory - Chemistry and Chemistry - challengeon 65-00-2670Zbyy T4 [Mass/Vol]0.86 ng/dL0.76-1.46The [facility] HospitalTSH Qn12.995 m[IU]/LHigh0.358-3.740The [facility] HospitalEstimated glomerular filtration rate (GFR) non- Americanon 84-97-8372EZE/1.73 sq M.predicted among non-blacks MDRD (S/P/Bld) [Vol rate/Area]48 mL/min/{1.73_m2}Low>=60 mL/min/1.73m 2FClermont County HospitalLaboratory - Chemistry and Chemistry - challengeon 86-53-0297Mbahewf [Mass/Vol]8.8 mg/dL8.5-10.1FClermont County HospitalChloride [Moles/Vol] 104 mmol/F55-921UbtszamkbThe [facility] HospitalCO2 [Moles/Vol]29.3 mmol/L 21.0-32.0The [facility] HospitalCreatinine [Mass/Vol]1.43 mg/dLHigh 0.70-1.30The [facility] HospitalGFR/1.73 sq M.predicted MDRD (S/P/Bld) [Vol rate/Area]58 mL/min/{1.73_m2}Low>=60 mL/min/1.[address]m [address] [place], [place] [address]Glucose [Mass/Vol]143 mg/iCEalg81-887HsfgztorpThe Bellevue HospitalPotassium [Moles/Vol]4.1 mmol/L3.5-5.1FClermont County Hospital Sodium [Moles/Vol]142 mmol/S247-315LgnptradfThe [facility]vue HospitalUrea nitrogen [Mass/Vol]17.0 mg/dL7.0-18.0The [facility] HospitalUrea nitrogen/Creatinine [Mass ratio]11.9 mg/mgLakeHealth Beachwood Medical Centererum or plasma anion gap determinationon 14-71-9417Oxgiq gap [Moles/Vol]12.8 mmol/L The [facility] HospitalBasophils Auto (Bld) [#/Vol]on 02-07-2025 Basophils (Bld) [#/Vol]0.0 10 3/uL0.0-0.1FClermont County Hospital Basophils/100 WBC Auto (Bld)on 04-57-3369Ycwnmylzq/100 WBC (Bld)0.5 %0.2-2.0 [facility] HospitalEosinophils/100 WBC Auto (Bld)on 02-07-2025 Eosinophils/100 WBC (Bld)2.7 %0.9-7.0[facility] Erythrocyte distribution width Auto (RBC) [Ratio]on 66-67-4947Huvvxfcgpee distribution width (RBC) [Ratio]13.4 %11.0-15.0[facility] Estimated glomerular filtration rate (GFR) non- Americanon 02-07-2025 GFR/1.73 sq M.predicted among non-blacks MDRD (S/P/Bld) [Vol rate/Area]36 mL/min/{1.73_m2}Low>=60 mL/min/1.73m 2FClermont County HospitalGlobulin Calc (S) [Mass/Vol]on 68-71-1308Olauvpmc (S) [Mass/Vol]2.8 g/dLThe Bellevue HospitalHematocrit Auto (Bld) [Volume fraction]on 02-07-2025 Hematocrit (Bld) [Volume fraction]37.2 %Low42.0-54.0The [facility] HospitalHemoglobin [Mass/volume] in Bloodon 58-90-1616Zakyubjsql (Bld) [Mass/Vol] 12.2 g/dLLow14.0-18.0The [facility] HospitalLaboratory - Chemistry and Chemistry - challengeon 20-24-0809Xvzekjx [Mass/Vol]2.7 g/dLLow3.4-5.0The [facility] HospitalALP [Catalytic activity/Vol]66 U/U83-428XntacsvmzThe [facility] HospitalALT [Catalytic activity/Vol]20 U/E96-34TifddxmpwThe [facility] HospitalAST [Catalytic activity/Vol]16 U/Z77-38KfefhwpupThe [facility]vue HospitalBilirubin [Mass/Vol]0.7 mg/dL0.2-1.0[facility] Calcium [Mass/Vol]8.6 mg/dL8.5-10.1FClermont County HospitalChloride [Moles/Vol]103 mmol/W94-538OrjgatoueThe [facility] HospitalCO2 [Moles/Vol]29.6 mmol/L21.0-32.0[facility] HospitalCreatinine [Mass/Vol]1.84 mg/dL High0.70-1.30The [facility] HospitalGFR/1.73 sq M.predicted MDRD (S/P/Bld) [Vol rate/Area]43 mL/min/{1.73_m2}Low>=60 mL/min/1.73m 2FClermont County HospitalGlucose [Mass/Vol]91 mg/zK05-862QijscvrnsThe [facility] HospitalPotassium [Moles/Vol]4.0 mmol/L3.5-5.1FClermont County HospitalProtein [Mass/Vol]5.5 g/dLLow6.4-8.2FClermont County Hospital Sodium [Moles/Vol]137 mmol/V616-806CdomejcbiThe [facility] HospitalUrea nitrogen [Mass/Vol]25.0 mg/dLHigh7.0-18.0The [facility] HospitalUrea nitrogen/Creatinine [Mass ratio]13.6 mg/mgThe [facility] Hospital Laboratory - Hematology and Cell countson 18-24-4678Dkvcvpjp granulocytes/100 WBC (Bld)0.2 %0.0-0.5FClermont County HospitalLeukocytes [#/volume] corrected for nucleated erythrocytes in Blood by Automated counon 84-48-0734GQO corrected for nucl RBC Auto (Bld) [#/Vol]6.6 10 3/uL4.0-11.0The [facility] HospitalLymphocytes Auto (Bld) [#/Vol]on 24-03-6599Hggeppyhhvs (Bld) [#/Vol]1.6 10 3/uL1.2-3.8The [facility] HospitalLymphocytes/100 WBC Auto (Bld)on 01-80-7423Ajgglyheftu/100 WBC (Bld)24.2 %20.5-60.0[facility] CenterH Auto (RBC) [Entitic mass]on 81-15-9907FLF (RBC) [Entitic mass]31.1 pg25.9-34.0The [facility] HospitalMCHC Auto (RBC) [Mass/Vol]on 23-58-0816RQFH (RBC) [Mass/Vol]32.8 g/dL29.9-35.2FClermont County HospitalMCV Auto (RBC) [Entitic vol]on 39-50-0695QDI (RBC) [Entitic vol] 94.9 vBVful41.0-94.0The [facility] HospitalMonocytes Auto (Bld) [#/Vol]on 56-68-8500Ppfiforkb (Bld) [#/Vol]0.8 10 3/uL0.3-0.8The [facility] HospitalMonocytes/100 WBC Auto (Bld)on 60-74-3739Ysiktwqic/100 WBC (Bld) 12.1 %High1.7-12.0The [facility] HospitalNeutrophils Auto (Bld) [#/Vol]on 77-87-6127Fnwciklyvpi (Bld) [#/Vol]4.0 10 3/uL1.4-6.5FClermont County HospitalNeutrophils/100 WBC Auto (Bld)on 02-07-2025 Neutrophils/100 WBC (Bld)60.3 %43.0-75.0The [facility] HospitalNo Panel Informationon 86-41-6429Pojoynneuyf # (Auto)0.2 10 3/uL0.0-0.7FClermont County HospitalImmature Granulocyte # (Auto)0.01 10 3/uL0.00-0.03 The [facility] HospitalPlatelet mean volume Auto (Bld) [Entitic vol]on 97-60-4293Lvmguoog mean volume (Bld) [Entitic vol]11.6 fL9.5-13.5FClermont County HospitalPlatelets Auto (Bld) [#/Vol]on 04-68-8616Hsiyywkrs (Bld) [#/Vol]126 10 3/fWNdi358-575SihfxbeslThe [facility]vue HospitalRBC Auto (Bld) [#/Vol]on 63-11-1730LVR (Bld) [#/Vol]3.92 10 6/uLLow4.70-6.10[facility] Medical Centererum or plasma albumin/globulin mass ratioon 02-07-2025 Albumin/Globulin [Mass ratio]1.0 {ratio}[facility] Centererum or plasma anion gap determinationon 89-71-6595Sfcjk gap [Moles/Vol]8.4 mmol/L The [facility] HospitalBasophils Auto (Bld) [#/Vol]on 02-06-2025 Basophils (Bld) [#/Vol]0.0 10 3/uL0.0-0.1FClermont County Hospital Basophils/100 WBC Auto (Bld)on 47-68-8059Rlkgbzwsi/100 WBC (Bld)0.3 %0.2-2.0 [facility] HospitalEosinophils/100 WBC Auto (Bld)on 02-06-2025 Eosinophils/100 WBC (Bld)0.0 %Low0.9-7.0[facility] Erythrocyte distribution width Auto (RBC) [Ratio]on 36-12-7999Eeoexkkrdtz distribution width (RBC) [Ratio]13.2 %11.0-15.0[facility] Estimated glomerular filtration rate (GFR) non- Americanon 02-06-2025 GFR/1.73 sq M.predicted among non-blacks MDRD (S/P/Bld) [Vol rate/Area]27 mL/min/{1.73_m2}Low>=60 mL/min/1.73m 2FClermont County HospitalGlobulin Calc (S) [Mass/Vol]on 62-94-4755Teyjorws (S) [Mass/Vol]3.0 g/dLThe [facility] HospitalHematocrit Auto (Bld) [Volume fraction]on 02-06-2025 Hematocrit (Bld) [Volume fraction]39.9 %Low42.0-54.0The [facility] HospitalHemoglobin [Mass/volume] in Bloodon 47-34-0941Rkcdbuvxjv (Bld) [Mass/Vol] 13.5 g/dLLow14.0-18.0The [facility] HospitalLaboratory - Chemistry and Chemistry - challengeon 44-14-6440Zvtjxczgf Ql (U)NegativeNEGATIVEThe [facility] HospitalGlucose (U) [Mass/Vol]NegativeNEGATIVEThe [facility] HospitalKetones Ql (U)NegativeNEGATIVEThe [facility] HospitalpH (U)6.0 [pH]5.0-9.0[facility] Medical Centerpecific gravity (U) [Rel density]1.0101.005-1.025The [facility] HospitalUrobilinogen Qn (U)0.2 {Jolie'U}/dL0.2-1.0[facility] HospitalAlbumin [Mass/Vol]3.3 g/dL Low3.4-5.0[facility] HospitalALP [Catalytic activity/Vol]80 U/L 46-116The [facility] HospitalALT [Catalytic activity/Vol]24 U/L16-63 [facility] HospitalAmylase [Catalytic activity/Vol]41 U/L25-115 [facility] HospitalAST [Catalytic activity/Vol]18 U/L15-37 The [facility] HospitalBilirubin [Mass/Vol]0.9 mg/dL0.2-1.0The [facility] HospitalBilirubin.direct [Mass/Vol]0.2 mg/dL0.0-0.2FClermont County HospitalCalcium [Mass/Vol]8.6 mg/dL8.5-10.1FClermont County HospitalChloride [Moles/Vol]102 mmol/F53-076GcvipxtwqThe [facility] HospitalCO2 [Moles/Vol]26.9 mmol/L21.0-32.0[facility] Creatinine [Mass/Vol]2.33 mg/dLHigh0.70-1.30[facility] GFR/1.73 sq M.predicted MDRD (S/P/Bld) [Vol rate/Area]33 mL/min/{1.73_m2}Low>=60 mL/min/1.73m 2FClermont County HospitalGlucose [Mass/Vol]221 mg/dLHigh 74-106The [facility] HospitalLipase [Catalytic activity/Vol]28.0 U/L 16.0-77.0[facility] HospitalPotassium [Moles/Vol]4.2 mmol/L3.5-5.1 [facility] HospitalProtein [Mass/Vol]6.3 g/dLLow6.4-8.2FParkview Health Bryan Hospitalodium [Moles/Vol]138 mmol/Y335-804YrsevgswjThe [facility] HospitalUrea nitrogen [Mass/Vol]21.0 mg/dLHigh7.0-18.0[facility] HospitalUrea nitrogen/Creatinine [Mass ratio]9.0 mg/mgThe [facility] HospitalLaboratory - Hematology and Cell countson 37-83-0047Otxbsumm granulocytes/100 WBC (Bld)0.5 %0.0-0.5FClermont County Hospital Laboratory - Specimen informationon 10-08-8695Fukdbmplzo (U)CLEARCLEARFClermont County HospitalColor (U)LT. YELLOWYELLOWThe [facility] HospitalLaboratory - Urinalysison 81-07-4621Lyztmluxg esterase Test strip Ql (U) NegativeNEGATIVEThe [facility] HospitalMucus Ql (Urine sed)NONE SEEN NONE SEENThe [facility] HospitalNitrite Ql (U)NegativeNEGATIVE The [facility] HospitalProtein Ql (U)NegativeNEG/TRACEThe [facility] HospitalLeukocytes [#/volume] corrected for nucleated erythrocytes in Blood by Automated counon 69-91-4653BOF corrected for nucl RBC Auto (Bld) [#/Vol]10.8 10 3/uL4.0-11.0[facility] Lymphocytes Auto (Bld) [#/Vol]on 24-71-1112Uuxzbgsystb (Bld) [#/Vol]1.0 10 3/uL Low1.2-3.8The [facility] HospitalLymphocytes/100 WBC Auto (Bld)on 41-79-4033Ngxyqrsgzwv/100 WBC (Bld)9.0 %Low20.5-60.0The [facility] HospitalMCH Auto (RBC) [Entitic mass]on 01-27-7362JDB (RBC) [Entitic mass]31.9 pg 25.9-34.0[facility] CenterHC Auto (RBC) [Mass/Vol]on 55-57-2417VHHO (RBC) [Mass/Vol]33.8 g/dL29.9-35.2FClermont County HospitalMCV Auto (RBC) [Entitic vol]on 05-33-4036FUX (RBC) [Entitic vol]94.3 fL High80.0-94.0[facility] HospitalMonocytes Auto (Bld) [#/Vol]on 39-27-6260Yhdcmjcln (Bld) [#/Vol]0.7 10 3/uL0.3-0.8The [facility] HospitalMonocytes/100 WBC Auto (Bld)on 25-10-1974Jyrbmsexl/100 WBC (Bld)6.8 % 1.7-12.0The [facility] HospitalNeutrophils Auto (Bld) [#/Vol]on 58-51-4895Qjqjdkqdyza (Bld) [#/Vol]9.0 10 3/uLHigh1.4-6.5FClermont County HospitalNeutrophils/100 WBC Auto (Bld)on 34-96-3665Kjohqluoclu/100 WBC (Bld)83.4 %High43.0-75.0[facility] HospitalNo Panel Informationon 34-18-2267Oontc BacteriaTRACE #/HPFAbnormalNONE [facility] HospitalUrine Culture ReflexedNOThe [facility] HospitalUrine Occult BloodNegativeNEGATIVEThe [facility] HospitalUrine Other CastsNONE SEEN #/LPFNONE SEENThe [facility] HospitalUrine Other CrystalsNone Seen #/HPFNone [facility] HospitalUrine RBCNONE SEEN #/HPF0-2 The [facility] HospitalUrine Squamous Epithelial CellsRARE #/LPF NONE/RAREThe [facility] HospitalUrine WBCNONE SEEN #/HPFNONE SEEN [facility] HospitalBedside Influenza Type A AntigenNegative The [facility] HospitalComment on above:Negative for Flu A protein antigen. Infection due to Flu Acannot be ruled out. Flu A antigen in thesample may bebelow the detection limit of the test.Bedside Influenza Type B Antigen NegativeThe [facility]vue HospitalComment on above:Negative for Flu B protein antigen. Infection due to Flu Bcannot be ruled out. Flu B antigen in the sample may bebelow the detection limit of the test.Eosinophils # (Auto)0.0 10 3/uL0.0-0.7FClermont County HospitalImmature Granulocyte # (Auto)0.05 10 3/uLHigh0.00-0.03The [facility] HospitalTroponin I High Sensitivity 5.5 pg/mL4.0-76.1FClermont County HospitalComment on above:CUT-OFF POINTS HAVE BEEN ESTABLISHED BASED ON THE FOURTHUNIVERSAL DEFINITION OF MYOCARDIAL INFARCTION. THE UPPERREFERENCE LIMIT (URL) OF TROPONIN, DEFINED THE 99THPERCENTILE OF cTnI DISTRIBUTION IN A REFERENCE POPULATION,HAS BEEN CONFIRMED THE DECISION THRESHOLD FOR MIDIAGNOSIS.99TH PERCENTILE = 76.2 PG/MLNOTE: HIGH-SENSITIVITY TROPONIN ASSAY IS NOT INTENDED TO BEUSED IN ISOLATION BUT SHOULD BE INTERPRETED IN CONJUNCTIONWITH OTHER DIAGNOSTIC AND CLINICAL INFORMATION.Platelet mean volume Auto (Bld) [Entitic vol]on 02-06-2025 Platelet mean volume (Bld) [Entitic vol]11.4 fL9.5-13.5FClermont County HospitalPlatelets Auto (Bld) [#/Vol]on 08-40-1010Ufcjgohxi (Bld) [#/Vol] 164 10 3/lS983-291MllgzwyrqThe [facility] HospitalRBC Auto (Bld) [#/Vol]on 61-49-5816TTC (Bld) [#/Vol]4.23 10 6/uLLow4.70-6.10[facility] Medical Centererum or plasma albumin/globulin mass ratioon 21-00-9697Iwbazbj/Globulin [Mass ratio]1.1 {ratio}[facility] Centererum or plasma anion gap determinationon 87-81-2960Uutlq gap [Moles/Vol]13.3 mmol/LFClermont County HospitalGlobulin Calc (S) [Mass/Vol]on 74-84-2774Kmstqnkf (S) [Mass/Vol] 2.7 g/dLThe [facility] HospitalLaboratory - Chemistry and Chemistry - challengeon 48-87-2244Prhfwfr [Mass/Vol]3.5 g/dL3.4-5.0The [facility] HospitalALP [Catalytic activity/Vol]81 U/T36-098RajcsijzjThe [facility] HospitalALT [Catalytic activity/Vol]20 U/M98-79IbxicsvhsThe [facility] Hospital AST [Catalytic activity/Vol]16 U/O80-69QvvyhohtjThe [facility] Bilirubin [Mass/Vol]0.7 mg/dL0.2-1.0[facility] Bilirubin.direct [Mass/Vol]0.2 mg/dL0.0-0.2FClermont County HospitalFree T4 [Mass/Vol]0.88 ng/dL0.76-1.46The [facility] HospitalProtein [Mass/Vol]6.2 g/dLLow6.4-8.2FClermont County HospitalTSH Qn15.269 m[IU]/LHigh0.358-3.740The [facility] HospitalOffice Visiton 01-11-2025 Follow-up [id number] Tito Goncalves 1945 M Date Provider Department Center 01/11/2025 OLIVER RUELAS TIMO Santiago Family History Problem Relation Age of Onset Cancer Mother Alcohol abuse Father Heart attack Other Family Status - Relation Status Age at Mother Father Brother Alive Other Level of Service:93368 MO OFFICE/OUTPATIENT ESTABLISHED MOD MDM 30 [facility] Hospitalerum or plasma albumin/globulin mass ratioon 89-38-7971Bmjehxh/Globulin [Mass ratio]1.3 {ratio}[facility] HospitalBasophils/100 WBC Manual cnt (Bld)on 01-70-8147Eqvfipgor/100 WBC (Bld)0.0 %Low0.2-2.0[facility] HospitalEosinophils/100 WBC Manual cnt (Bld) on 14-36-0787Txdldernxjb/100 WBC (Bld)0.0 %Low0.9-7.0The [facility] HospitalErythrocyte distribution width Auto (RBC) [Ratio]on 37-52-8238Ceiqyzfovcj distribution width (RBC) [Ratio]12.8 %11.0-15.0[facility] Glucose mean value [Mass/volume] in Blood Estimated from glycated hemoglobinon 22-88-2135Krhmunx glucose Estimated from glycated hemoglobin (Bld) [Mass/Vol]186 mg/dLThe [facility] HospitalHematocrit Auto (Bld) [Volume fraction]on 11-49-2435Dmoywxqijh (Bld) [Volume fraction]43.2 %42.0-54.0The [facility] HospitalHemoglobin A1c percentageon 83-73-1828YiW3t (Bld) [Mass fraction] 8.1 %High4.5-6.2FClermont County HospitalComment on above:ADA RECOMMENDED LIMIT 4.0 - 6.0ADA THERAPEUTIC TARGET < 7.0ACTION SUGGESTED> 7.0 Hemoglobin [Mass/volume] in Bloodon 39-85-2947Accxpfeyxm (Bld) [Mass/Vol]14.5 g/dL14.0-18.0The [facility] HospitalLaboratory - Hematology and Cell countson 98-86-0591Kedmlcymjuu/100 WBC (Bld)23.0 %20.5-60.0[facility] HospitalMonocytes/100 WBC (Bld)4.0 %1.7-12.0The [facility] HospitalLeukocytes [#/volume] corrected for nucleated erythrocytes in Blood by Automated counon 96-79-5144OBS corrected for nucl RBC Auto (Bld) [#/Vol]6.2 10 3/uL4.0-11.0[facility] CenterH Auto (RBC) [Entitic mass]on 72-64-6671HSP (RBC) [Entitic mass]31.3 pg25.9-34.0The [facility] HospitalMCHC Auto (RBC) [Mass/Vol]on 54-92-0637WKRW (RBC) [Mass/Vol]33.6 g/dL 29.9-35.2FClermont County HospitalMCV Auto (RBC) [Entitic vol]on 70-06-9937VZP (RBC) [Entitic vol]93.3 fL80.0-94.0The [facility] HospitalNo Panel Informationon 67-06-1014Ofbonnhd Basophils (Manual)0.00 10 3/uL 0.00-0.10The [facility] HospitalEosinophils # (Manual)0.00 10 3/uL 0.00-0.70The [facility] HospitalLymphocytes # (Manual)1.42 10 3/uL 1.20-3.80The [facility] HospitalMonocytes # (Manual)0.24 10 3/uLLow 0.30-0.80The [facility] HospitalReactive Lymphocytes0.12The [facility] HospitalReactive Lymphocytes2.0 %[facility] Centeregmented Neutrophils # (Manual)4.40 10 3/uL1.4-6.5FClermont County HospitalPlatelet mean volume Auto (Bld) [Entitic vol]on 33-76-1479Gwmgzrsk mean volume (Bld) [Entitic vol]11.3 fL9.5-13.5FClermont County Hospital Platelets Auto (Bld) [#/Vol]on 27-68-6162Hwdxwceju (Bld) [#/Vol]153 10 3/uL 150-450The [facility] HospitalRBC Auto (Bld) [#/Vol]on 70-08-1063WQV (Bld) [#/Vol]4.63 10 6/uLLow4.70-6.10[facility] Centeregmented neutrophils/100 WBC Manual cnt (Bld)on 68-77-2774Kxsbmatby neutrophils/100 WBC (Bld)71.0 %43.0-75.0The [facility] HospitalNo Panel Informationon 29-87-2687HZXW HealthcareOphthalmic OCT panelon 83-66-3354BDJISac-Osage HospitalRight Eye Images reviewed and comparison made to baseline, Images reviewed. To assess optic nerve function and for use in future follow-up. Reliability: good and adequate. Left Eye Images reviewed and comparison made to baseline, Images reviewed. To assess optic nerve function and for use in future follow-up. Reliability: good and adequate. Notes Good nerve fiber layer (NFL) thickness both eyes (OU).[facility] HealthcareRadiology Study observation (narrative)[facility] HealthcareOptical coherence tomography study reporton 23-38-9845LJLEECU Health [facility]ie Hospital Radiology Study observation (narrative)[facility] HospitalUS Eye+Orbit - bilateralon 97-12-7232Gamvgoyxc: Cataract both eyes (OU) Testing Indication: Performed for preop measurements in the determination of an intraocular lens (IOL) for both eyes (OU) Test Reliability: Good quality both eyes (OU) Interpretation: Good measurements for intraocular lens (IOL) calculation purposes. Calculation made for both eyes (OU).[facility] Radiology Study observation (narrative)[facility] HospitalGLUCOSE POCT GLUCOMETERSon 81-89-8308UMLNAPE6Mpv2: Cleaned MeterSTEWARD HEALTH CARE SYSTEM HealthcareGlucose [Mass/Vol]157 mg/dL [facility] HospitalComment on above:Random Glucose Reference Range is dependent on time and content of last meal. Glucose of more than 200 mg/dL in a nonstressed, ambulatory subject supports the diagnosis of Diabetes Mellitus. [facility] HospitalWtqsqndvddNZPYXPH0Pfe4: Cleaned MeterSTEWARD HEALTH [facility]ARE SYSTEM HealthcareGlucose [Mass/Vol]164 mg/dLSac-Osage HospitalComment on above:Random Glucose Reference Range is dependent on time and content of last meal. Glucose of more than 200 mg/dL in a nonstressed, ambulatory subject supports the diagnosis of Diabetes Mellitus. [facility] HospitalGlucose Glucometer ([facility]) [Mass/Vol]Ordered By: Augustine Freitas on 44-91-0876Udzubjb [Mass/Vol]Capillary blood glucose measurement by glucometer (mass/volume)The [facility] HospitalComment on above:Random Glucose Reference Range is dependent on time and content of last meal. Glucose of more than 200 mg/dL in a nonstressed, ambulatory subject supports the diagnosis of Diabetes Mellitus.Glucose Poct Glucometerson 79-77-7945Vmpkfrs3Ygr9: Cleaned MeterLakeland Regional Health Medical Center Physician GroupComment on above:Result Comment: PERFORMED BY: [facility] [place] [address] PATHOLOGIST PERSONAL COMPANION GUERDA ESQUIVEL M.D.Performed By: #### GLULS #### Point of Care testing ,Glucose [Mass/Vol]157 mg/dLLakeland Regional Health Medical Center Physician GroupComment on above: Result Comment: Random Glucose Reference Range is dependent on time and content of last meal. Glucose of more than 200 mg/dL in a nonstressed, ambulatory subject supports the diagnosis of Diabetes Mellitus.Performed By: #### GLULS #### Point of Care testing ,Ytqgnvt1Bwq6: Cleaned MeterLakeland Regional Health Medical Center Physician GroupComment on above: Result Comment: PERFORMED BY: [place] [address] PATHOLOGIST PERSONAL COMPANION GUERDA ESQUIVEL M.D.Performed By: #### GLULS #### Point of Care testing ,Glucose [Mass/Vol]164 mg/dLNoMission Hospital Physician GroupComment on above: Result Comment: Random Glucose Reference Range is dependent on time and content of last meal. Glucose of more than 200 mg/dL in a nonstressed, ambulatory subject supports the diagnosis of Diabetes Mellitus.Performed By: #### GLULS #### Point of Care testing ,No Panel InformationOrdered By: Augustine Freitas on 29-47-9075Bkcgfbd Glucose CommentGlu2: cleaned [facility] RehabilitationBasic Metabolic Panel on 67-55-6189Kovwh gap [Moles/Vol]13.1 mmol/LNormal6.0-15.0The [facility] Physician GroupComment on above:Performed By: #### CBC, BMP #### [facility] [address] [place] [address] USACalcium [Mass/Vol]9.0 mg/dLNormal8.6-10.3The [facility] Physician GroupComment on above:Result Comment: PERFORMED BY: [place] [address] PATHOLOGIST PERSONAL COMPANION GUERDA ESQUIVEL M.D.Performed By: #### CBC, BMP #### [facility] [address] [place] [address] USAChloride [Moles/Vol]103 mmol/ULlnvtr96-819Cxs [facility] Physician GroupComment on above:Performed By: #### CBC, BMP #### [facility] [address] [place] [address] USACO2 [Moles/Vol]30.3 mmol/PAshqeo16.0-31.0The [facility] Physician GroupComment on above:Performed By: #### CBC, BMP #### [place] [address] USACreatinine [Mass/Vol]1.32 mg/dLHigh0.70-1.30The [facility] Physician GroupComment on above:Performed By: #### CBC, BMP #### [place] [address] USAEstimated GFR55.209 mL/MinNormalThe [facility] Physician GroupComment on above:Performed By: #### CBC, BMP #### [place] [address] USAGlucose [Mass/Vol]175 mg/[id number] [facility] Physician GroupComment on above:Result Comment: Random Glucose Reference Range is dependent on time and content of last meal. Glucose of more than 200 mg/dL in a nonstressed, ambulatory subject supports the diagnosis of Diabetes Mellitus. ADA recommended reference rangePerformed By: #### CBC, BMP #### [place] [address] USAPotassium [Moles/Vol]4.4 mmol/LNormal3.5-5.1The [facility] Physician GroupComment on above:Performed By: #### CBC, BMP #### [place] [address] USASodium [Moles/Vol]142 mmol/RWomohs655-916Wnq [facility] Physician GroupComment on above:Performed By: #### CBC, BMP #### [place] [address] USAUrea nitrogen [Mass/Vol]16 mg/dLNormal7-25The [facility] Physician GroupComment on above:Performed By: #### CBC, BMP #### [place] [address] USABasic metabolic 1998 panelon [id number] gap [Moles/Vol]13.1 mmol/L6.0 - 15.0 meq/LNOMS HealthcareCalcium [Mass/Vol]9 mg/dL 8.6 - 10.3 mg/dLNOMS HealthcareChloride [Moles/Vol]103 mmol/L98 - 107 mmol/LNOMS HealthcareCO2 [Moles/Vol]30.3 mmol/L21.0 - 31.0 mmol/LNOMS HealthcareCreatinine (U) [Mass/Vol]1.32 mg/dLHigh0.70 - 1.30 mg/dLNOMS HealthcareGFR/1.73 sq M.predicted MDRD (S/P/Bld) [Vol rate/Area]55.209 mL/min/{1.73_m2}mL/MinNOMS HealthcareGlucose [Mass/Vol]175 mg/fZVphm52 - 100 mg/dLNOMS HealthcareComment on above:Random Glucose Reference Range is dependent on time and content of last meal. Glucose of more than 200 mg/dL in a nonstressed, ambulatory subject supports the diagnosis of Diabetes Mellitus. ADA recommended reference range Interpretation and review of laboratory resultsAbnormalNOMS HealthcarePotassium [Moles/Vol]4.4 mmol/L3.5 - 5.1 mmol/LNOMS HealthcareSodium [Moles/Vol]142 mmol/L 136 - 145 mmol/LNOMS HealthcareUrea nitrogen [Mass/Vol]16 mg/dL7 - 25 mg/dLNOMS HealthcareNOMS HealthcareBasophils Auto (Bld) [#/Vol]Ordered By: Augustine Freitas on 45-96-0960Jwkimxmgz (Bld) [#/Vol]Automated basophil count0.0-0.2FClermont County HospitalBasophils/100 WBC Auto (Bld)Ordered By: Augustine Freitas on 24-94-3871Vxfymfkuh/100 WBC (Bld)Automated basophil %.[facility] HospitalCB W Auto Differential panel (Bld)on 23-36-1012Rrdznuitk (Bld) [#/Vol]0 10*3/uL0.0 - 0.2 10*3/uLNOMS HealthcareBasophils/100 WBC Manual cnt (Syn fld)0.5 %.NOMS HealthcareEosinophils (Bld) [#/Vol]0.1 10*3/uL0.0 - 0.45 10*3/uLNOMS HealthcareEosinophils/100 WBC Manual cnt (Syn fld)2 %.[facility] HospitalErythrocyte distribution width (RBC) [Ratio]14.2 %12.0 - 14.8 %[facility] HospitalHematocrit (Bld) [Volume fraction]43.9 %38.8 - 50.0 %[facility] Hemoglobin (Bld) [Mass/Vol]14.8 g/dL13.0 - 17.0 g/dLSTEWARD HEALTH CARE SYSTEM HealthcareLymphocytes (Bld) [#/Vol]1.5 10*3/uL1.00 - 4.8 10*3/uLNOMS HealthcareLymphocytes/100 WBC Manual cnt (Syn fld)28.9 %.[facility] HospitalMCH (RBC) [Entitic mass]31.3 pg27.5 - 35.2 pgSac-Osage HospitalMCHC (RBC) [Mass/Vol]33.6 g/dL32.5 - 35.6 g/dLSac-Osage HospitalMCV (RBC) [Entitic vol]93.1 fL83.5 - 101 fLSac-Osage HospitalMonocytes (Bld) [#/Vol]0.5 10*3/uL0.0 - 0.8 10*3/uLNOMS Healthcare Monocytes+Macrophages/100 WBC Manual cnt (Syn fld)9.3 %.[facility] Neutrophils (Bld) [#/Vol]3.2 10*3/uL1.8 - 7.7 10*3/uLNOMS Healthcare Neutrophils/100 WBC Manual cnt (Syn fld)59.3 %.[facility]age HospitalNRBC0.1 /100{WBC}0 - 0.5 /100{WBC}[facility] HealthcarePlatelet mean volume (Bld) [Entitic vol]9.5 fL6.6 - 10.1 fLSTEWARD HEALTH CARE SYSTEM HealthcarePlatelets (Bld) [#/Vol]160 10*3/uL150 - 450 10*3/uLNOMS HealthcareRBC LM.HPF (Urine sed) [#/Area]4.72 10*6/uL3.90 - 5.60 10*6/uLNOMS HealthcareWBC (Bld) [#/Vol]5.3 10*3/uL4.1 - 10.5 10*3/uLNOMS HealthcareWBC LM.HPF (Urine sed) [#/Area]5.3 10*3/uL4.1 - 10.5 10*3/uLNOMS HealthcareNOMS HealthcareCalcium [Mass/volume] in Serum or PlasmaOrdered By: Augustine Freitas on 49-82-2708Cdiqwpb [Mass/Vol]Calcium [Mass/volume] in Serum or Plasma8.6-10.3 [facility] HospitalCarbon dioxide, total [Moles/volume] in Serum or PlasmaOrdered By: Augustine Freitas on 25-92-1150VG9 [Moles/Vol]Carbon dioxide, total [Moles/volume] in Serum or Uimdni00.0-31.0[facility] HospitalChloride [Moles/volume] in Serum or PlasmaOrdered By: Augustine Freitas on 48-54-6054Cnrsthxp [Moles/Vol]Chloride [Moles/volume] in Serum or Drynae47-418 [facility] HospitalComplete Blood Count Auto Diffon 10-17-2024 Basophils (Bld) [#/Vol]0.0 10*3/uLNormal0.0-0.2The [facility] Comment on above:Result Comment: PERFORMED BY: [place] [address] PATHOLOGIST PERSONAL COMPANION GUERDA ESQUIVEL M.D.Performed By: #### CBC, BMP #### [place] [id number] USABasophils/100 WBC (Bld)0.5 %Normal.The [facility] Physician GroupComment on above:Performed By: #### CBC, BMP #### [facility] [address] [place] [id number] USAEosinophils (Bld) [#/Vol]0.1 10*3/uLNormal0.0-0.45The [facility] Physician GroupComment on above:Performed By: #### CBC, BMP #### [facility] [address] [place] [address] USAEosinophils/100 WBC (Bld)2.0 %Normal.The [facility] Physician GroupComment on above:Performed By: #### CBC, BMP #### [facility] [address] [place] [address] USAErythrocyte distribution width (RBC) [Ratio]14.2 %Normal 12.0-14.8The [facility] Physician GroupComment on above:Performed By: #### CBC, BMP #### [facility] [address] [place] [address] USAHematocrit (Bld) [Volume fraction]43.9 %Ggxudk25.8-50.0The [facility] Physician GroupComment on above:Performed By: #### CBC, BMP #### [place] [address] USAHemoglobin (Bld) [Mass/Vol]14.8 g/cIHquijs96.0-17.0The [facility] Physician GroupComment on above:Performed By: #### CBC, BMP #### [place] [address] USALymphocytes (Bld) [#/Vol]1.5 10*3/uLNormal1.00-4.8The [facility] Physician GroupComment on above:Performed By: #### CBC, BMP #### [place] [address] USALymphocytes/100 WBC (Bld)28.9 %Normal.The [facility] Physician GroupComment on above:Performed By: #### CBC, BMP #### [place] [address] USAMCH (RBC) [Entitic mass]31.3 ltHczara95.5-35.2The [facility] Physician GroupComment on above:Performed By: #### CBC, BMP #### [place] [address] USAMCV (RBC) [Entitic vol]93.1 dBTbqjpk95.5-101The [facility] Physician GroupComment on above:Performed By: #### CBC, BMP #### [place] [address] USAMean Corpuscular HGB Conc33.6 g/oKKnaggg86.5-35.6The [facility] Physician GroupComment on above:Performed By: #### CBC, BMP #### [facility] [address] [place] [address] USAMonocytes (Bld) [#/Vol]0.5 10*3/uLNormal0.0-0.8The [facility] Phys[facility] GroupComment on above:Performed By: #### CBC, BMP #### [facility] [address] [place] [address] USAMonocytes/100 WBC (Bld)9.3 %Normal.The [facility] Physician GroupComment on above:Performed By: #### CBC, BMP #### [facility] [address] [place] [address] USANeutrophils (Bld) [#/Vol]3.2 10*3/uLNormal1.8-7.7The [facility] GroupComment on above:Performed By: #### CBC, BMP #### [facility] [address] [place] [address] USANeutrophils/100 WBC (Bld)59.3 %Normal.The [facility] Physician GroupComment on above:Performed By: #### CBC, BMP #### [facility] [address] [place] [address] USANRBC%0.1 /100{WBC}Normal0-0.5The [facility] Comment on above:Performed By: #### CBC, BMP #### [facility] [address] [place] [address] USAPlatelet mean volume (Bld) [Entitic vol]9.5 fLNormal 6.6-10.1The [facility] Physician GroupComment on above:Performed By: #### CBC, BMP #### [facility] [address] [place] [address] USAPlatelets (Bld) [#/Vol]160 10*3/aHMwzdgz611-702Wov [facility] Physician GroupComment on above:Performed By: #### CBC, BMP #### [facility] [address] [place] [address] USARBC (Bld) [#/Vol]4.72 10*6/uLNormal3.90-5.60The [facility] Physician GroupComment on above:Performed By: #### CBC, BMP #### [facility] [address] [place] [address] USAWBC (Bld) [#/Vol]5.3 10*3/uLNormal4.1-10.5The [facility] HospitalComment on above:Performed By: #### CBC, BMP #### [facility] [address] [place] [id number] USACreatinine [Mass/volume] in Serum or PlasmaOrdered By: Augustine Freitas on 59-17-0447Uegeksmvdt [Mass/Vol]Creatinine [Mass/volume] in Serum or PlasmaHigh0.70-1.30The [facility] HospitalECG 12 lead ECGon 78-29-9752WXJ 12 lead [facility]GCLEVEL[facility] Main [place] [address] [place] [address] Electrocardiograph Report Signed Patient: Tito Goncalves MR#: [id number] 70 : 1945 Acct:[id number] Age/Sex: 79 / M ADM Date: 10/17/24 Loc: Room: Type: [facility] Attending Dr: Augustine Freitas DO Ordering [...] in Lateral leads Confirmed by Oliver Rubio ([id number]) on 10/17/2024 4:52:19 PM Referred By: Electronically Signed By: Oliver Rubio Transcribed By: MUS Signed By Oliver Rubio MD 10/17/24 1652NoMission Hospital Physician GroupEosinophils Auto (Bld) [#/Vol] Ordered By: Augustine Freitas on 27-39-1809Jqakhulbsjj (Bld) [#/Vol]Automated eosinophil count0.0-0.45The [facility] HospitalEosinophils/100 WBC Auto (Bld)Ordered By: Augustine Freitas on 71-15-7662Gubyilnzdge/100 WBC (Bld) Automated eosinophil %.[facility] HospitalErythrocyte distribution width Auto (RBC) [Ratio]Ordered By: Augustine Freitas on 57-45-9412Vjmabvlxkpt distribution width (RBC) [Ratio]Erythrocyte distribution width [Ratio] by Automated count12.0-14.8[facility] HospitalGlucose [Mass/volume] in Serum or PlasmaOrdered By: Augustine Freitas on 22-00-9908Yzmkfxp [Mass/Vol] Glucose [Mass/volume] in Serum or YhlzqaVmmf30-737GoqvnisaxThe Bellevue HospitalComment on above:ADA recommended reference rangeRandom Glucose Reference Range is dependent on time and content of last meal. Glucose of more than 200 mg/dL in a nonstressed, ambulatory subject supports the diagnosisof Diabetes Mellitus.Hematocrit Auto (Bld) [Volume fraction]Ordered By: Augustine Freitas on 57-03-9723Agznojzumo (Bld) [Volume fraction]Hematocrit [Volume Fraction] of Blood by Automated count38.8-50.0[facility] HospitalHemoglobin [Mass/volume] in BloodOrdered By: Augustine Freitas on 77-07-9443Nnnaqjxupu (Bld) [Mass/Vol]Hemoglobin [Mass/volume] in Blood13.0-17.0The [facility] HospitalLeukocytes [#/volume] corrected for nucleated erythrocytes in Blood by Automated counOrdered By: Augustien Freitas on 25-98-7949PMM corrected for nucl RBC Auto (Bld) [#/Vol]Leukocytes [#/volume] corrected for nucleated erythrocytes in Blood by Automated coun4.1-10.5FClermont County HospitalLymphocytes Auto (Bld) [#/Vol]Ordered By: Augustine Freitas on 19-06-0367Gpdajvyytrx (Bld) [#/Vol]Lymphocytes [#/volume] in Blood by Automated count1.00-4.8The [facility] HospitalLymphocytes/100 WBC Auto (Bld)Ordered By: Augustine Freitas on 60-27-3030Fttyhgoxjrp/100 WBC (Bld)Lymphocytes/100 leukocytes in Blood by Automated count.The [facility] HospitalMCH Auto (RBC) [Entitic mass] Ordered By: Augustine Freitas on 17-06-8645MNX (RBC) [Entitic mass]MCH [Entitic mass] by Automated count27.5-35.2FClermont County HospitalMCHC Auto (RBC) [Mass/Vol]Ordered By: Augustine Freitas on 15-35-7814DRWL (RBC) [Mass/Vol] MCHC [Mass/volume] by Automated count32.5-35.6FClermont County Hospital MCV Auto (RBC) [Entitic vol]Ordered By: Augustine Freitas on 86-85-2622RYH (RBC) [Entitic vol]MCV [Entitic volume] by Automated count83.5-101The [facility] HospitalMonocytes Auto (Bld) [#/Vol]Ordered By: Augustine Freitas on 66-14-5848Mdpabgrtz (Bld) [#/Vol]Automated blood monocyte count0.0-0.8[facility] HospitalMonocytes/100 WBC Auto (Bld)Ordered By: Augustine Freitas on 75-42-4177Tentbppqy/100 WBC (Bld)Automated monocyte %.[facility] HospitalNeutrophils Auto (Bld) [#/Vol]Ordered By: Augustine Freitas on 59-04-5819Tiekpsrisgq (Bld) [#/Vol]Neutrophils [#/volume] in Blood by Automated count1.8-7.7FClermont County HospitalNeutrophils/100 WBC Auto (Bld) Ordered By: Augustine Freitas on 94-69-2900Hpljzrkvxqt/100 WBC (Bld)Automated neutrophil %.[facility] HospitalNo Panel InformationOrdered By: Augustine Freitas on 91-28-3830Odesebjhs GFR (CKD-EPI)55.209 mL/MinThe Bellevue HospitalPharmacy Creatinine Clearance (ChemN/AFClermont County HospitalNucleated erythrocytes [Presence] in Blood by Automated count Ordered By: Augustine Freitas on 24-14-0217Wzbixprsl RBC Auto Ql (Bld)Nucleated erythrocytes [Presence] in Blood by Automated count0-0.5FClermont County HospitalPlatelet mean volume Auto (Bld) [Entitic vol]Ordered By: Augustine Freitas on 00-89-4325Wtxdfvlk mean volume (Bld) [Entitic vol]Platelet mean volume [Entitic volume] in Blood by Automated count6.6-10.1FClermont County HospitalPlatelets Auto (Bld) [#/Vol]Ordered By: Augustine Freitas on 10-17-2024 Platelets (Bld) [#/Vol]Platelets [#/volume] in Blood by Automated exjzq512-807 [facility] HospitalPotassium [Moles/volume] in Serum or Plasma Ordered By: Augustine Freitas on 20-50-3312Ngudcfzvr [Moles/Vol]Potassium [Moles/volume] in Serum or Plasma3.5-5.1FClermont County HospitalRBC Auto (Bld) [#/Vol]Ordered By: Augustine Freitas on 80-45-7121QFE (Bld) [#/Vol] Erythrocytes [#/volume] in Blood by Automated count3.90-5.60[facility] Medical Centererum or plasma anion gap determinationOrdered By: Augustine Freitas on 89-56-5634Uvwpj gap [Moles/Vol]Serum or plasma anion gap determination 6.0-15.0[facility] Medical Centerodium [Moles/volume] in Serum or PlasmaOrdered By: Augustine Freitas on 03-64-5966Sihlyh [Moles/Vol]Sodium [Moles/volume] in Serum or Polsky124-738HotomkbyuThe Bellevue HospitalUrea nitrogen [Mass/volume] in Serum or PlasmaOrdered By: Augustine Freitas on 95-88-6083Jnzv nitrogen [Mass/Vol]Urea nitrogen [Mass/volume] in Serum or Plasma 7-25The [facility] HospitalWBC Auto (Bld) [#/Vol]Ordered By: Augustine Freitas on 34-67-0472IVJ (Bld) [#/Vol]Leukocytes [#/volume] in Blood by Automated count4.1-10.5FClermont County HospitalNo Panel Informationon 10-16-2024 Consent obtained: written (The rationale for Mohs as well as the risks, benefits, and alternatives. The risks of infection, scarring, bleeding, prolonged wound healing, incomplete removal, allergy to anesthesia or meds, nerve injury, and recurrence were addressed.) [place] Protocol: Procedure explained and questions answered to [...] sodium bicarbonate Procedure Details: Biopsy accession number: [id number] Biopsy lab: [facility] Date of biopsy: [...] cm Number of bl (more content not included)...[facility] HealthcareNo Panel Informationon 75-58-5676Qamm of biopsy: tangential Informed consent: discussed and [...] Photo taken Amount of lidocaine used: 0.4 [facility]No Panel InformationOrdered By: Karen Mckinnon on 66-07-5899IRBHSac-Osage HospitalOptical coherence tomography study reporton 42-17-0141VJCBECU Health Bertie HospitalRadiology Study observation (narrative)[facility] HospitalBasophils Auto (Bld) [#/Vol]on 12-36-0606Hsaokyrec (Bld) [#/Vol]Automated basophil count0.0-0.1FClermont County Hospital Basophils/100 WBC Auto (Bld)on 16-51-1127Mrpdkzcws/100 WBC (Bld)Automated basophil %0.2-2.0[facility] HospitalEosinophils/100 WBC Auto (Bld) on 67-09-4034Mpjoaglscau/100 WBC (Bld)Automated eosinophil %0.9-7.0[facility] HospitalErythrocyte distribution width Auto (RBC) [Ratio]on 15-54-1940Gestsunvfks distribution width (RBC) [Ratio]Erythrocyte distribution width [Ratio] by Automated fsapmIgoy14.0-15.0[facility] Estimated glomerular filtration rate (GFR) non- Americanon 08-14-2024 GFR/1.73 sq M.predicted among non-blacks MDRD (S/P/Bld) [Vol rate/Area]Estimated glomerular filtration rate (GFR) non- AmericanLow>=60 mL/min/1.73m 2 [facility] HospitalGlobulin Calc (S) [Mass/Vol]on 08-14-2024 Globulin (S) [Mass/Vol]Serum globulin measurement by calculation (mass/volume) [facility] HospitalGlucose mean value [Mass/volume] in Blood Estimated from glycated hemoglobinon 26-79-3786Hdzakol glucose Estimated from glycated hemoglobin (Bld) [Mass/Vol]Glucose mean value [Mass/volume] in Blood Estimated from glycated hemoglobinThe Bellevue HospitalHematocrit Auto (Bld) [Volume fraction]on 98-97-7952Fslffmrkqv (Bld) [Volume fraction] Hematocrit [Volume Fraction] of Blood by Automated count42.0-54.0The [facility] HospitalHemoglobin [Mass/volume] in Bloodon 14-75-6401Uculzfqiuh (Bld) [Mass/Vol]Hemoglobin [Mass/volume] in Blood14.0-18.0[facility] HospitalLaboratory - Chemistry and Chemistry - challengeon 08-14-2024 Albumin [Mass/Vol]3.6 g/dL3.4-5.0[facility] HospitalALP [Catalytic activity/Vol]78 U/D58-618XxsmgwgtaThe Bellevue HospitalALT [Catalytic activity/Vol]25 U/C64-55YqwbpzlbcThe [facility]vue HospitalAST [Catalytic activity/Vol]16 U/Y48-77DrpzisjdgThe [facility]vue HospitalBilirubin [Mass/Vol]0.7 mg/dL0.2-1.0[facility] HospitalCalcium [Mass/Vol]8.8 mg/dL 8.5-10.1FClermont County HospitalChloride [Moles/Vol]104 mmol/L98-107 [facility] HospitalCO2 [Moles/Vol]28.7 mmol/L21.0-32.0[facility] HospitalCreatinine [Mass/Vol]1.66 mg/dLHigh0.70-1.30[facility] HospitalGFR/1.73 sq M.predicted MDRD (S/P/Bld) [Vol rate/Area]49 mL/min/{1.73_m2}Low>=60 mL/min/1.73m 2FClermont County HospitalGlucose [Mass/Vol]143 mg/lVThyi92-861MwmzzqwgpThe [facility]vue HospitalPotassium [Moles/Vol]4.5 mmol/L3.5-5.1FClermont County HospitalProtein [Mass/Vol] 6.7 g/dL6.4-8.2FParkview Health Bryan Hospitalodium [Moles/Vol]142 mmol/L 136-145The [facility] HospitalUrea nitrogen [Mass/Vol]24.0 mg/dLHigh 7.0-18.0[facility] HospitalUrea nitrogen/Creatinine [Mass ratio] 14.5 mg/mgThe Bellevue HospitalLaboratory - Hematology and Cell countson 17-89-2556VpJ2n (Bld) [Mass fraction]7.2 %High4.5-6.2FClermont County HospitalComment on above:ADA RECOMMENDED LIMIT 4.0 - 6.0ADA THERAPEUTIC TARGET < 7.0ACTION SUGGESTED> 7.0Immature granulocytes/100 WBC (Bld)0.0 %0.0-0.5 [facility] HospitalLeukocytes [#/volume] corrected for nucleated erythrocytes in Blood by Automated counon 02-90-4343WOO corrected for nucl RBC Auto (Bld) [#/Vol]Leukocytes [#/volume] corrected for nucleated erythrocytes in Blood by Automated coun4.0-11.0[facility] HospitalLymphocytes Auto (Bld) [#/Vol]on 08-45-1235Oydrauncvhf (Bld) [#/Vol]Lymphocytes [#/volume] in Blood by Automated count1.2-3.8The [facility] HospitalLymphocytes/100 WBC Auto (Bld)on 60-99-6452Gomqgkoohlj/100 WBC (Bld)Lymphocytes/100 leukocytes in Blood by Automated count20.5-60.0The [facility] HospitalMCH Auto (RBC) [Entitic mass]on 79-99-4611HDM (RBC) [Entitic mass]MCH [Entitic mass] by Automated count25.9-34.0The [facility] HospitalMCHC Auto (RBC) [Mass/Vol]on 16-89-4468ZQML (RBC) [Mass/Vol]MCHC [Mass/volume] by Automated count29.9-35.2FClermont County HospitalMCV Auto (RBC) [Entitic vol]on 70-98-2698EGN (RBC) [Entitic vol]MCV [Entitic volume] by Automated count 80.0-94.0[facility] HospitalMicroalbumin [Mass/volume] in Urineon 54-86-8618Yuomudo DL <= 20 mg/L (U) [Mass/Vol]Microalbumin [Mass/volume] in Urine<=30.0[facility] HospitalMonocytes Auto (Bld) [#/Vol]on 36-80-4501Mzhbbrcey (Bld) [#/Vol]Automated blood monocyte count0.3-0.8[facility] HospitalMonocytes/100 WBC Auto (Bld)on 24-96-5831Yjzxwqzbt/100 WBC (Bld)Automated monocyte %1.7-12.0[facility] Neutrophils Auto (Bld) [#/Vol]on 55-32-6760Ywjligoklyw (Bld) [#/Vol]Neutrophils [#/volume] in Blood by Automated count1.4-6.5FClermont County Hospital Neutrophils/100 WBC Auto (Bld)on 46-80-4349Bnwucvsldxp/100 WBC (Bld)Automated neutrophil %43.0-75.0[facility] HospitalNo Panel Informationon 42-98-4188Oqxqwcbbwmc # (Auto)0.1 10 3/uL0.0-0.7FClermont County HospitalImmature Granulocyte # (Auto)0.00 10 3/uL0.00-0.03[facility] HospitalProstate Specific Antigen Screen1.77 ng/mL<=4.00The [facility] HospitalPlatelet mean volume Auto (Bld) [Entitic vol]on 08-14-2024 Platelet mean volume (Bld) [Entitic vol]Platelet mean volume [Entitic volume] in Blood by Automated count9.5-13.5FClermont County HospitalPlatelets Auto (Bld) [#/Vol]on 20-57-6418Lblsxlrrq (Bld) [#/Vol]Platelets [#/volume] in Blood by Automated lpexf765-497CdtyuzaazThe Bellevue HospitalRBC Auto (Bld) [#/Vol] on 29-34-5000KYC (Bld) [#/Vol]Erythrocytes [#/volume] in Blood by Automated countLow4.70-6.10[facility] Medical Centererum or plasma albumin/globulin mass ratioon 75-34-3449Fsljwcr/Globulin [Mass ratio]Serum or plasma albumin/globulin mass ratioLakeHealth Beachwood Medical Centererum or plasma anion gap determinationon 08-25-4152Ylaqp gap [Moles/Vol]Serum or plasma anion gap determinationThe Bellevue HospitalOffice Visiton 36-81-9101Vmzaud-up [id number] Tito Goncalves 1945 M Date Provider Department Center 07/11/2024 MAGGY [facility]ON CARD [facility] Family History Problem Relation Age of Onset Cancer Mother Heart attack Other Family Status - Relation Status Age at Mother Other Level of Service:11772 MO OFFICE/OUTPATIENT ESTABLISHED LOW [facility]Basophils Auto (Bld) [#/Vol]on 06-27-2024 Basophils (Bld) [#/Vol]0.0 10 3/uL0.0-0.1FClermont County Hospital Basophils/100 WBC Auto (Bld)on 35-56-7845Kphwspnmo/100 WBC (Bld)0.4 %0.2-2.0 [facility] HospitalEosinophils/100 WBC Auto (Bld)on 06-27-2024 Eosinophils/100 WBC (Bld)2.0 %0.9-7.0[facility] Erythrocyte distribution width Auto (RBC) [Ratio]on 05-04-7070Ztigrgmytfk distribution width (RBC) [Ratio]16.6 %High11.0-15.0[facility] HospitalHematocrit Auto (Bld) [Volume fraction]on 51-78-3737Ivspldlpxv (Bld) [Volume fraction]38.5 %Low42.0-54.0[facility] HospitalHemoglobin [Mass/volume] in Bloodon 32-29-8790Asvechzomx (Bld) [Mass/Vol]12.5 g/dLLow 14.0-18.0[facility] HospitalIron binding capacity [Mass/volume] in Serum or Plasmaon 30-02-5198Yscv binding capacity [Mass/Vol]314.0 ug/dL 250.0-450.0The [facility] HospitalIron saturation [Mass Fraction] in Serum or Plasmaon 33-57-2411Sydx saturation [Mass fraction]21.3 %[facility] HospitalLaboratory - Chemistry and Chemistry - challengeon 38-68-6984Ybmrokiwu (Vitamin B12) [Mass/Vol]640 pg/gH436-6521ImdxvcxvdThe Bellevue HospitalComment on above:Performed at: [employer] [facility] [address] [id number] Director: Erasmo Mack PhD, Phone: [phone] Ferritin [Mass/Vol]25.0 ng/mLLow26.0-388.0The [facility] HospitalIron [Mass/Vol]67.0 ug/dL65.0-175.0[facility] HospitalLaboratory - Hematology and Cell countson 18-37-7257Jeitdcgk granulocytes/100 WBC (Bld)0.4 % 0.0-0.5FClermont County HospitalLeukocytes [#/volume] corrected for nucleated erythrocytes in Blood by Automated counon 97-80-7568IYA corrected for nucl RBC Auto (Bld) [#/Vol]5.0 10 3/uL4.0-11.0[facility] Lymphocytes Auto (Bld) [#/Vol]on 05-56-8506Yxzwqeksncn (Bld) [#/Vol]1.4 10 3/uL 1.2-3.8[facility] HospitalLymphocytes/100 WBC Auto (Bld)on 10-68-1453Bozxkuxyeeq/100 WBC (Bld)27.8 %20.5-60.0[facility] HospitalMCH Auto (RBC) [Entitic mass]on 79-15-1507JKJ (RBC) [Entitic mass]28.8 pg 25.9-34.0[facility] HospitalMCHC Auto (RBC) [Mass/Vol]on 36-36-3065AVEY (RBC) [Mass/Vol]32.5 g/dL29.9-35.2FClermont County HospitalMCV Auto (RBC) [Entitic vol]on 62-30-8089TZT (RBC) [Entitic vol]88.7 fL 80.0-94.0[facility] HospitalMonocytes Auto (Bld) [#/Vol]on 58-60-3354Vidklmard (Bld) [#/Vol]0.4 10 3/uL0.3-0.8[facility] HospitalMonocytes/100 WBC Auto (Bld)on 80-59-6599Ukihmylon/100 WBC (Bld)8.3 % 1.7-12.0[facility] HospitalNeutrophils Auto (Bld) [#/Vol]on 58-89-4608Qxmkkhrlovq (Bld) [#/Vol]3.1 10 3/uL1.4-6.5FClermont County HospitalNeutrophils/100 WBC Auto (Bld)on 02-74-7928Fweowvtehfw/100 WBC (Bld)61.1 % 43.0-75.0[facility] HospitalNo Panel Informationon 06-27-2024 Eosinophils # (Auto)0.1 10 3/uL0.0-0.7FClermont County HospitalFolate 22.10 ng/mL8.60-58.90The [facility] HospitalImmature Granulocyte # (Auto)0.02 10 3/uL0.00-0.03[facility] HospitalPlatelet mean volume Auto (Bld) [Entitic vol]on 20-23-3479Kjbmxldu mean volume (Bld) [Entitic vol] 11.2 fL9.5-13.5FClermont County HospitalPlatelets Auto (Bld) [#/Vol]on 33-92-8012Zxypzmijg (Bld) [#/Vol]162 10 3/dF865-325PzlzkowaeThe Bellevue HospitalRBC Auto (Bld) [#/Vol]on 24-38-1570IMV (Bld) [#/Vol]4.34 10 6/uLLow 4.70-6.10[facility] HospitalNo Panel Informationon 24-92-2970CKHCResearch [facility] HealthcareOptical coherence tomography study reporton 06-08-2024 [facility] HealthcareRadiology Study observation (narrative)[facility] HealthcareBasophils Auto (Bld) [#/Vol]on 15-39-2685Racuvrcge (Bld) [#/Vol]0.0 10 3/uL0.0-0.1FClermont County HospitalBasophils/100 WBC Auto (Bld)on 31-04-5204Vwesdzdxz/100 WBC (Bld)0.5 %0.2-2.0[facility] Eosinophils/100 WBC Auto (Bld)on 74-69-4301Vyuibrnwfdd/100 WBC (Bld)4.3 %0.9-7.0 [facility] HospitalErythrocyte distribution width Auto (RBC) [Ratio]on 26-87-5550Fobnfbyawkm distribution width (RBC) [Ratio]14.0 %11.0-15.0 [facility] HospitalHematocrit Auto (Bld) [Volume fraction]on 23-54-9575Vfmroptgjc (Bld) [Volume fraction]36.8 %Low42.0-54.0[facility] HospitalHemoglobin [Mass/volume] in Bloodon 49-09-0173Myqgldeuby (Bld) [Mass/Vol]11.6 g/dLLow14.0-18.0[facility] HospitalIron binding capacity [Mass/volume] in Serum or Plasmaon 34-86-4798Ovjr binding capacity [Mass/Vol]339.0 ug/dL250.0-450.0[facility] HospitalIron saturation [Mass Fraction] in Serum or Plasmaon 67-11-8192Glmo saturation [Mass fraction] 11.8 %[facility] HospitalLaboratory - Chemistry and Chemistry - challengeon 25-88-7414Socwqfmey (Vitamin B12) [Mass/Vol]594.0 pg/mL193.0-986.0 [facility] HospitalFerritin [Mass/Vol]20.0 ng/mLLow26.0-388.0 [facility] HospitalIron [Mass/Vol]40.0 ug/dLLow65.0-175.0[facility] HospitalLaboratory - Hematology and Cell countson 04-18-2024 Immature granulocytes/100 WBC (Bld)0.0 %0.0-0.5FClermont County Hospital Leukocytes [#/volume] corrected for nucleated erythrocytes in Blood by Automated counon 29-71-1562WTJ corrected for nucl RBC Auto (Bld) [#/Vol]4.4 10 3/uL 4.0-11.0[facility] HospitalLymphocytes Auto (Bld) [#/Vol]on 23-04-8344Zqamlytfnya (Bld) [#/Vol]1.5 10 3/uL1.2-3.8[facility] HospitalLymphocytes/100 WBC Auto (Bld)on 04-02-0536Hcbipyhepfk/100 WBC (Bld)34.1 % 20.5-60.0[facility]H Auto (RBC) [Entitic mass]on 38-12-5980JMC (RBC) [Entitic mass]27.5 pg25.9-34.0[facility] HospitalMCHC Auto (RBC) [Mass/Vol]on 07-92-3947SAVY (RBC) [Mass/Vol]31.5 g/dL 29.9-35.2FClermont County HospitalMCV Auto (RBC) [Entitic vol]on 10-64-0517OUE (RBC) [Entitic vol]87.2 fL80.0-94.0[facility] HospitalMonocytes Auto (Bld) [#/Vol]on 37-44-2390Pmbbdajlh (Bld) [#/Vol]0.4 10 3/uL0.3-0.8[facility] HospitalMonocytes/100 WBC Auto (Bld)on 39-30-9186Bkmwlyguw/100 WBC (Bld)9.4 %1.7-12.0[facility] Neutrophils Auto (Bld) [#/Vol]on 13-17-6651Jdaefdxkqci (Bld) [#/Vol]2.3 10 3/uL 1.4-6.5FClermont County HospitalNeutrophils/100 WBC Auto (Bld)on 61-46-1207Iwrtqtigaom/100 WBC (Bld)51.7 %43.0-75.0[facility] HospitalNo Panel Informationon 44-71-2159Cmzlumufbmm # (Auto)0.2 10 3/uL0.0-0.7 [facility] HospitalImmature Granulocyte # (Auto)0.00 10 3/uL 0.00-0.03[facility] HospitalPlatelet mean volume Auto (Bld) [Entitic vol]on 08-29-6564Emjbvgee mean volume (Bld) [Entitic vol]11.1 fL 9.5-13.5FClermont County HospitalPlatelets Auto (Bld) [#/Vol]on 29-06-6908Xisulhins (Bld) [#/Vol]185 10 3/aX023-120DteaidpfsThe [facility]vue HospitalRBC Auto (Bld) [#/Vol]on 75-41-4106RUC (Bld) [#/Vol]4.22 10 6/uLLow 4.70-6.10[facility] HospitalBasophils Auto (Bld) [#/Vol]on 11-91-2612Pkzdmdkwd (Bld) [#/Vol]0.0 10 3/uL0.0-0.1FClermont County HospitalBasophils/100 WBC Auto (Bld)on 74-66-3250Xdlczfgpb/100 WBC (Bld)0.6 % 0.2-2.0[facility] HospitalEosinophils/100 WBC Auto (Bld)on 85-06-2585Krhgtwcxacu/100 WBC (Bld)3.3 %0.9-7.0[facility] Erythrocyte distribution width Auto (RBC) [Ratio]on 12-67-4078Fcvgjvafegc distribution width (RBC) [Ratio]13.9 %11.0-15.0[facility] Estimated glomerular filtration rate (GFR) non- Americanon 04-02-2024 GFR/1.73 sq M.predicted among non-blacks MDRD (S/P/Bld) [Vol rate/Area]49 mL/min/{1.73_m2}Low>=60The [facility] HospitalGlobulin Calc (S) [Mass/Vol]on 74-58-8598Eadbrehi (S) [Mass/Vol]3.0 g/dLThe [facility]vue HospitalHematocrit Auto (Bld) [Volume fraction]on 60-32-4289Bcehdhxedj (Bld) [Volume fraction]32.6 %Low42.0-54.0[facility] HospitalHemoglobin [Mass/volume] in Bloodon 44-17-7625Rgjwtkdzdn (Bld) [Mass/Vol]10.3 g/dLLow 14.0-18.0[facility] HospitalLaboratory - Chemistry and Chemistry - challengeon 74-47-7250Wydzdjt [Mass/Vol]2.8 g/dLLow3.4-5.0[facility] HospitalALP [Catalytic activity/Vol]76 U/K35-249QynazxwkkThe [facility] HospitalALT [Catalytic activity/Vol]14 U/RFev36-98OtrphyudiThe [facility] HospitalAST [Catalytic activity/Vol]11 U/UVnj27-93YivhodoohThe [facility]vue HospitalBilirubin [Mass/Vol]0.4 mg/dL0.2-1.0[facility] Calcium [Mass/Vol]8.4 mg/dLLow8.5-10.1FClermont County HospitalChloride [Moles/Vol]107 mmol/U72-511DtinpjvnjThe [facility] HospitalCO2 [Moles/Vol]28.1 mmol/L21.0-32.0[facility] HospitalCreatinine [Mass/Vol]1.40 mg/dL High0.70-1.30[facility] HospitalGFR/1.73 sq M.predicted MDRD (S/P/Bld) [Vol rate/Area]59 mL/min/{1.73_m2}Low>=60The [facility] HospitalGlucose [Mass/Vol]141 mg/uZCmkz59-721TitgnlonrThe [facility] Potassium [Moles/Vol]4.3 mmol/L3.5-5.1FClermont County HospitalProtein [Mass/Vol]5.8 g/dLLow6.4-8.2FParkview Health Bryan Hospitalodium [Moles/Vol] 142 mmol/Z796-075CwcqjmwjaThe [facility] HospitalUrea nitrogen [Mass/Vol]16.0 mg/dL7.0-18.0[facility] HospitalUrea nitrogen/Creatinine [Mass ratio]11.4 mg/mgThe [facility] HospitalLaboratory - Hematology and Cell countson 43-70-5723Agknhinj granulocytes/100 WBC (Bld)0.2 %0.0-0.5FClermont County HospitalLeukocytes [#/volume] corrected for nucleated erythrocytes in Blood by Automated counon 96-80-8117CGQ corrected for nucl RBC Auto (Bld) [#/Vol]5.2 10 3/uL4.0-11.0[facility] Lymphocytes Auto (Bld) [#/Vol]on 83-91-3382Clnjswwgpqj (Bld) [#/Vol]1.7 10 3/uL 1.2-3.8[facility] HospitalLymphocytes/100 WBC Auto (Bld)on 82-33-2202Qpvteojbppa/100 WBC (Bld)32.6 %20.5-60.0[facility] CenterH Auto (RBC) [Entitic mass]on 51-22-6964HLO (RBC) [Entitic mass]27.8 pg 25.9-34.0[facility] HospitalMCHC Auto (RBC) [Mass/Vol]on 17-71-1438DDVI (RBC) [Mass/Vol]31.6 g/dL29.9-35.2FClermont County HospitalMCV Auto (RBC) [Entitic vol]on 70-10-0581UYN (RBC) [Entitic vol]87.9 fL 80.0-94.0[facility] HospitalMonocytes Auto (Bld) [#/Vol]on 45-93-2092Yxnwqswvx (Bld) [#/Vol]0.7 10 3/uL0.3-0.8[facility] HospitalMonocytes/100 WBC Auto (Bld)on 28-40-3123Bauorkowe/100 WBC (Bld)12.9 %High 1.7-12.0[facility] HospitalNeutrophils Auto (Bld) [#/Vol]on 69-10-0914Xpihwkewuqr (Bld) [#/Vol]2.6 10 3/uL1.4-6.5FClermont County HospitalNeutrophils/100 WBC Auto (Bld)on 76-50-5418Acfwmhsbseh/100 WBC (Bld)50.4 % 43.0-75.0[facility] HospitalNo Panel Informationon 04-02-2024 Eosinophils # (Auto)0.2 10 3/uL0.0-0.7FClermont County HospitalImmature Granulocyte # (Auto)0.01 10 3/uL0.00-0.03[facility] Troponin I High Sensitivity7.8 pg/mL4.0-76.1FClermont County Hospital Comment on above:CUT-OFF POINTS HAVE BEEN ESTABLISHED BASED ON THE FOURTHUNIVERSAL DEFINITION OF MYOCARDIAL INFARCTION. THE UPPERREFERENCE LIMIT (URL) OF TROPONIN, DEFINED THE 99THPERCENTILE OF cTnI DISTRIBUTION IN A REFERENCE POPULATION,HAS BEEN CONFIRMED THE DECISION THRESHOLD FOR MIDIAGNOSIS.99TH PERCENTILE = 76.2 PG/MLNOTE: HIGH-SENSITIVITY TROPONIN ASSAY IS NOT INTENDED TO BEUSED IN ISOLATION BUT SHOULD BE INTERPRETED IN CONJUNCTIONWITH OTHER DIAGNOSTIC AND CLINICAL INFORMATION.Platelet mean volume Auto (Bld) [Entitic vol]on 57-14-7747Fyanywls mean volume (Bld) [Entitic vol] 12.5 fL9.5-13.5FClermont County HospitalPlatelets Auto (Bld) [#/Vol]on 54-77-1875Zdceopuwb (Bld) [#/Vol]139 10 3/eMIjm719-824JokvebrwkThe [facility] HospitalRBC Auto (Bld) [#/Vol]on 05-85-1570HWE (Bld) [#/Vol]3.71 10 6/uLLow 4.70-6.10[facility] Centererum or plasma albumin/globulin mass ratioon 86-84-2073Yswtdmx/Globulin [Mass ratio]0.9 {ratio}[facility] Centererum or plasma anion gap determinationon 67-61-7101Sbpiw gap [Moles/Vol]11.2 mmol/LFClermont County HospitalBasophils Auto (Bld) [#/Vol]on 71-62-3774Drnjjazto (Bld) [#/Vol]0.0 10 3/uL0.0-0.1FClermont County HospitalBasophils/100 WBC Auto (Bld)on 37-78-5743Jzbtktoui/100 WBC (Bld) 0.2 %0.2-2.0[facility] HospitalEosinophils/100 WBC Auto (Bld)on 61-94-5703Sciwzjbdjmw/100 WBC (Bld)1.8 %0.9-7.0[facility] Erythrocyte distribution width Auto (RBC) [Ratio]on 18-48-1707Tkvvqrlmwri distribution width (RBC) [Ratio]13.7 %11.0-15.0[facility] Estimated glomerular filtration rate (GFR) non- Americanon 04-01-2024 GFR/1.73 sq M.predicted among non-blacks MDRD (S/P/Bld) [Vol rate/Area]43 mL/min/{1.73_m2}Low>=60The [facility] HospitalGlobulin Calc (S) [Mass/Vol]on 72-47-1595Makrlqvl (S) [Mass/Vol]3.3 g/dLThe [facility]vue HospitalHematocrit Auto (Bld) [Volume fraction]on 93-55-7181Vfbismezmg (Bld) [Volume fraction]35.6 %Low42.0-54.0[facility] HospitalHemoglobin [Mass/volume] in Bloodon 80-18-0258Wgqxanaipr (Bld) [Mass/Vol]11.1 g/dLLow 14.0-18.0[facility] HospitalINR in Platelet poor plasma by Coagulation assayon 09-33-5678AQX Coag (PPP) [Relative time]0.98 {INR}[facility] HospitalComment on above:DESIRED INR:2.0-3.0 CONDITIONS NOT LISTED BELOW2.5-3.5 FOR PROSTHETIC HEART VALVE REPLACEMENT2.5-3.5 RECURRENT THROMBOSISLaboratory - Chemistry and Chemistry - challengeon 34-96-8749Ehxuvjv [Mass/Vol]3.3 g/dLLow3.4-5.0[facility] HospitalALP [Catalytic activity/Vol]91 U/V07-082EnepaooxlThe [facility] HospitalALT [Catalytic activity/Vol]19 U/S61-92WtpbbynjeThe [facility] HospitalAST [Catalytic activity/Vol]12 U/PMcf15-55SxvhohdseThe [facility] HospitalBilirubin [Mass/Vol] 0.4 mg/dL0.2-1.0[facility] HospitalCalcium [Mass/Vol]8.5 mg/dL 8.5-10.1FClermont County HospitalChloride [Moles/Vol]102 mmol/L98-107 [facility] HospitalCO2 [Moles/Vol]26.5 mmol/L21.0-32.0[facility] HospitalCreatinine [Mass/Vol]1.56 mg/dLHigh0.70-1.30[facility] HospitalGFR/1.73 sq M.predicted MDRD (S/P/Bld) [Vol rate/Area]52 mL/min/{1.73_m2}Low>=60The [facility] HospitalGlucose [Mass/Vol]234 mg/cLXxkf77-035HbdkehalwThe [facility] HospitalNatriuretic peptide B (Bld) [Mass/Vol]284.0 pg/mL<=1800.0[facility] HospitalPotassium [Moles/Vol]4.2 mmol/L3.5-5.1FClermont County HospitalProtein [Mass/Vol] 6.6 g/dL6.4-8.2FParkview Health Bryan Hospitalodium [Moles/Vol]138 mmol/L 136-145The [facility] HospitalUrea nitrogen [Mass/Vol]18.0 mg/dL 7.0-18.0[facility] HospitalUrea nitrogen/Creatinine [Mass ratio] 11.5 mg/mgThe [facility] HospitalLaboratory - Hematology and Cell countson 02-89-8359Fljjrxcq granulocytes/100 WBC (Bld)0.2 %0.0-0.5FClermont County HospitalLeukocytes [#/volume] corrected for nucleated erythrocytes in Blood by Automated counon 68-45-8413LPN corrected for nucl RBC Auto (Bld) [#/Vol]6.2 10 3/uL4.0-11.0[facility] Lymphocytes Auto (Bld) [#/Vol]on 12-29-1620Xhxhoudvtkd (Bld) [#/Vol]1.3 10 3/uL 1.2-3.8[facility] HospitalLymphocytes/100 WBC Auto (Bld)on 94-70-5576Cvvlocjbalt/100 WBC (Bld)20.2 %Low20.5-60.0[facility] CenterH Auto (RBC) [Entitic mass]on 87-29-3943AMJ (RBC) [Entitic mass]27.5 pg 25.9-34.0[facility] CenterHC Auto (RBC) [Mass/Vol]on 35-91-8954OAHA (RBC) [Mass/Vol]31.2 g/dL29.9-35.2FClermont County HospitalMCV Auto (RBC) [Entitic vol]on 47-15-5352UCJ (RBC) [Entitic vol]88.1 fL 80.0-94.0[facility] HospitalMonocytes Auto (Bld) [#/Vol]on 52-52-8348Zwuscpccx (Bld) [#/Vol]0.6 10 3/uL0.3-0.8[facility] HospitalMonocytes/100 WBC Auto (Bld)on 48-89-1835Hnarfifvs/100 WBC (Bld)10.2 % 1.7-12.0[facility] HospitalNeutrophils Auto (Bld) [#/Vol]on 25-52-5384Alubnxydtzu (Bld) [#/Vol]4.2 10 3/uL1.4-6.5FClermont County HospitalNeutrophils/100 WBC Auto (Bld)on 31-69-7195Qzzbogmfkjb/100 WBC (Bld)67.4 % 43.0-75.0[facility] HospitalNo Panel Informationon 04-01-2024 Troponin I High Sensitivity6.7 pg/mL4.0-76.1FClermont County Hospital Comment on above:CUT-OFF POINTS HAVE BEEN ESTABLISHED BASED ON THE FOURTHUNIVERSAL DEFINITION OF MYOCARDIAL INFARCTION. THE UPPERREFERENCE LIMIT (URL) OF TROPONIN, DEFINED THE 99THPERCENTILE OF cTnI DISTRIBUTION IN A REFERENCE POPULATION,HAS BEEN CONFIRMED THE DECISION THRESHOLD FOR MIDIAGNOSIS.99TH PERCENTILE = 76.2 PG/MLNOTE: HIGH-SENSITIVITY TROPONIN ASSAY IS NOT INTENDED TO BEUSED IN ISOLATION BUT SHOULD BE INTERPRETED IN CONJUNCTIONWITH OTHER DIAGNOSTIC AND CLINICAL INFORMATION.Eosinophils # (Auto) 0.1 10 3/uL0.0-0.7FClermont County HospitalImmature Granulocyte # (Auto) 0.01 10 3/uL0.00-0.03[facility] HospitalPlatelet mean volume Auto (Bld) [Entitic vol]on 22-72-4035Ebghfzwa mean volume (Bld) [Entitic vol]11.8 fL 9.5-13.5FClermont County HospitalPlatelets Auto (Bld) [#/Vol]on 06-57-9191Bdwsxoypl (Bld) [#/Vol]152 10 3/mJ050-463QcsucxnzmThe [facility] HospitalProthrombin time (PT)on 88-27-6070LQ Coag (PPP) [Time]10.4 s9.0-11.6 [facility] HospitalRBC Auto (Bld) [#/Vol]on 42-68-2744OLA (Bld) [#/Vol]4.04 10 6/uLLow4.70-6.10[facility] Centererum or plasma albumin/globulin mass ratioon 84-11-9875Hobxgen/Globulin [Mass ratio]1.0 {ratio} [facility] Centererum or plasma anion gap determinationon 35-61-8596Bhwqm gap [Moles/Vol]13.7 mmol/LFClermont County Hospital Glucose mean value [Mass/volume] in Blood Estimated from glycated hemoglobinon 67-32-9719Mttzpnu glucose Estimated from glycated hemoglobin (Bld) [Mass/Vol]160 mg/dLThe [facility] HospitalLaboratory - Hematology and Cell countson 41-72-5761UvM3w (Bld) [Mass fraction]7.2 %High4.5-6.2FClermont County HospitalComment on above:ADA RECOMMENDED LIMIT 4.0 - 6.0ADA THERAPEUTIC TARGET < 7.0ACTION SUGGESTED> 7.0Capillary blood glucose measurement by glucometer (mass/volume)Ordered By: Augustine Freitas on 84-74-9844Rjfwpja [Mass/Vol]124 mg/dLNoMercy Health Willard HospitalComment on above:Random Glucose Reference Range is dependent on time and content of last meal. Glucose of more than 200 mg/dL in a nonstressed, ambulatory subject supports the diagnosis of Diabetes Mellitus.Result Comment: Random Glucose Reference Range is dependent on time and content of last meal. Glucose of more than 200 mg/dL in a nonstressed, ambulatory subject supports the diagnosis of Diabetes Mellitus.Performed By: #### GLULS #### Point of Care testing ,Glucose Poct Glucometerson 58-30-8821Qiuttlo3Jwg8: Cleaned [facility] Physician GroupComment on above:Result Comment: PERFORMED BY: [place] [address] PATHOLOGIST PERSONAL COMPANION RICKY STRANGE M.D.Performed By: #### GLULS #### Point of Care testing ,No Panel InformationOrdered By: Augustine Freitas on 52-22-0655Bstvvjw Glucose CommentGlu2: cleaned [facility] RehabilitationECG 12 lead ECGon 79-03-2288YOX 12 lead [facility] [place] [address] Electrocardiograph Report Signed Patient: Tito Goncalves MR#: [id number] 70 : 1945 Acct:[id number] Age/Sex: 79 / M ADM Date: 02/16/24 Loc: Room: [facility] [...] T wave abnormality Confirmed by Viviane Herman ([id number]) on 02/17/2024 12:43:51 PM Referred By: ZENA Electronically Signed By:Viviane Herman Transcribed By: QI Signed By Viviane Herman MD 4 1243[facility] Physician GroupBasophils Auto (Bld) [#/Vol]on 28-75-8566Gqwuftkbx (Bld) [#/Vol]0.0 10 3/uL0.0-0.1FClermont County HospitalBasophils/100 WBC Auto (Bld)on 12-31-7912Zuouhjfor/100 WBC (Bld)0.4 % 0.2-2.0[facility] HospitalEosinophils/100 WBC Auto (Bld)on 29-78-6183Vvkeolznpiy/100 WBC (Bld)2.3 %0.9-7.0[facility] Erythrocyte distribution width Auto (RBC) [Ratio]on 32-86-0777Mpqhcxliemb distribution width (RBC) [Ratio]13.6 %11.0-15.0[facility] Estimated glomerular filtration rate (GFR) non- Americanon 01-18-2024 GFR/1.73 sq M.predicted among non-blacks MDRD (S/P/Bld) [Vol rate/Area]48 mL/min/{1.73_m2}Low>=60[facility] HospitalHematocrit Auto (Bld) [Volume fraction]on 37-59-4529Jlayldltnx (Bld) [Volume fraction]37.0 %Low 42.0-54.0[facility] HospitalHemoglobin [Mass/volume] in Bloodon 97-30-4911Mycqrwzmrn (Bld) [Mass/Vol]11.7 g/dLLow14.0-18.0[facility] HospitalLaboratory - Chemistry and Chemistry - challengeon 01-18-2024 Calcium [Mass/Vol]8.6 mg/dL8.5-10.1FClermont County HospitalChloride [Moles/Vol]103 mmol/F11-129AycewmsuzThe [facility] HospitalCO2 [Moles/Vol]30.4 mmol/L21.0-32.0[facility] HospitalCreatinine [Mass/Vol]1.44 mg/dL High0.70-1.30[facility] HospitalGFR/1.73 sq M.predicted MDRD (S/P/Bld) [Vol rate/Area]58 mL/min/{1.73_m2}Low>=60[facility] HospitalGlucose [Mass/Vol]140 mg/eDHzny34-935UliqiwqvgThe [facility] Hospital Potassium [Moles/Vol]4.5 mmol/L3.5-5.1FParkview Health Bryan Hospitalodium [Moles/Vol]140 mmol/Y792-775ZncyqtbffThe [facility] HospitalUrea nitrogen [Mass/Vol]17.0 mg/dL7.0-18.0[facility] HospitalUrea nitrogen/Creatinine [Mass ratio]11.8 mg/mgThe [facility] Hospital Laboratory - Hematology and Cell countson 57-75-9603Osgrudbw granulocytes/100 WBC (Bld)0.0 %0.0-0.5FClermont County HospitalLeukocytes [#/volume] corrected for nucleated erythrocytes in Blood by Automated counon 07-74-0579PXS corrected for nucl RBC Auto (Bld) [#/Vol]4.8 10 3/uL4.0-11.0[facility] HospitalLymphocytes Auto (Bld) [#/Vol]on 72-75-6976Qmajodisqoj (Bld) [#/Vol]1.6 10 3/uL1.2-3.8[facility] HospitalLymphocytes/100 WBC Auto (Bld)on 61-72-0221Zncippbrbie/100 WBC (Bld)33.8 %20.5-60.0[facility] CenterH Auto (RBC) [Entitic mass]on 41-05-6521YFC (RBC) [Entitic mass]28.3 pg25.9-34.0[facility] HospitalMCHC Auto (RBC) [Mass/Vol]on 86-93-9456HSRY (RBC) [Mass/Vol]31.6 g/dL29.9-35.2FClermont County HospitalMCV Auto (RBC) [Entitic vol]on 99-98-9023HQC (RBC) [Entitic vol] 89.6 fL80.0-94.0[facility] HospitalMonocytes Auto (Bld) [#/Vol]on 60-43-3593Kjshdmszo (Bld) [#/Vol]0.6 10 3/uL0.3-0.8[facility] HospitalMonocytes/100 WBC Auto (Bld)on 82-11-5119Irqkwvrvy/100 WBC (Bld)11.8 % 1.7-12.0[facility] HospitalNeutrophils Auto (Bld) [#/Vol]on 34-30-5646Qwcgbmtwuwv (Bld) [#/Vol]2.5 10 3/uL1.4-6.5FClermont County HospitalNeutrophils/100 WBC Auto (Bld)on 58-49-1790Rjjblwnldpt/100 WBC (Bld)51.7 % 43.0-75.0[facility] HospitalNo Panel Informationon 01-18-2024 Eosinophils # (Auto)0.1 10 3/uL0.0-0.7FClermont County HospitalImmature Granulocyte # (Auto)0.00 10 3/uL0.00-0.03[facility] Platelet mean volume Auto (Bld) [Entitic vol]on 59-58-1805Jxjxyuki mean volume (Bld) [Entitic vol]11.4 fL9.5-13.5FClermont County HospitalPlatelets Auto (Bld) [#/Vol]on 43-89-3990Isadffcbo (Bld) [#/Vol]186 10 3/zA402-286 [facility] HospitalRBC Auto (Bld) [#/Vol]on 74-35-7340GIF (Bld) [#/Vol]4.13 10 6/uLLow4.70-6.10[facility] Centererum or plasma anion gap determinationon 59-98-3143Ombik gap [Moles/Vol]11.1 mmol/[facility] Medical CenterOptical coherence tomography study reporton 10-28-2023 [facility] HealthcareRadiology Study observation (narrative)[facility] HealthcareCoding Summaryon 37-23-2792Tprrqy SummaryMLBase 64 OruungqaJUj9eNl+PGhlYWQ+YD1ZRWVxO33flADbsW8sR9PXEAnCZickOKRQRBiCXoBrscLbBC4scZTj ZXJu [file] Y29 (more content not included)...[facility] Clinical Summaryon 90-58-7485VS Clinical [facility] Emergency Department [address] [place] [address] ED Clinical Summary PERSON INFORMATION Name: TITO GONCALVES Age: 78 Years Sex: MALE : 1945 MRN: Acct#: Visit Reason: Eye Injury; Fall; FALL/LT EYE LAC Arrival: 07/05/2023 16:48:26 Discharge: 07/05/2023 18:40:00 LOS: 000 01:52 Check In: 07/05/2023 16:48:26 Checkout:07/05/2023 18:40:00 [facility] [id number] PCP: Augustine Metz PROVIDER INFORMATION Provider Role [...] - Patient/family/caregiver verbalizes understanding of instructions given Comment:[facility] Patient Education Noteon 30-15-2552IV Patient Education NoteEducation MaterialsNoMercy Health [facility] Hospital Patient Summaryon 79-22-5122YP Patient SummaryClermont County Hospital Emergency Department [address] [place] [address] PATIENT DISCHARGE INSTRUCTIONS Patient Information Name: TITO GONCALVES Age: 78 Years Date of : 1945 Reason For Visit: Eye Injury; Fall; FALL/LT EYE LAC Arrival Time: 07/05/2023 16:48:26 Primary Care Physician: Augustine Metz Attending Physician: Colin Song DO Comment: Visit Diagnosis: Diagnoses This Visit Eye Injury ([id number]) Fall ([id number]) The Pharmacy at [facility] is open Tuesday through Tuesday from 9A to 6P and Tuesday and Tuesday from 9A to 5P Prescription Information: If you have been given a prescription for narcotics, seek immediate medical attention if you have any difficulty breathing or any sudden status changes such as confusion andsleepiness. If you or anyone you know is experiencing suicidal thoughts, mental health, alcohol and/or drug addiction problems; contact the [facility] 18/04 Crisis Hotline -Text 3UIWP yx 920017. If you received any narcotics, sedation, or [...] in the [facility] Emergency Department were for an urgent problem and are not intended as complete care. It is important for you to follow up with a doctor, nurse practitioner, or physician?s assistant professor of nursing for ongoing care. If your symptoms become worse or you donot improve as expected and you are unable [...] can reach you if necessary. [facility] Emergency Department has provided you with a complete list of medications post discharge. Please inform your data warehouse analyst/provider of your visit and for further instruction [...] to relieve symptom (more content not included)... [facility] HospitalPhone Msgon 82-23-9980Rkevy Ms From: Lori Cintron MA Sent: 02/01/2023 08:59:25 EDT Caller Name: IVANNA TITO Yehuda; Caller Number: H Found CD of a CT scan for pt in fax folder for Dr. Angelo's team. Called pt to see if he wanted it back. Pt to speak with his dtr and see if we should hold it at office, send to him or destroy. Patient called and states he would like the CD mailed to his address on file. HealthCBC AUTO DIFFon [phone] #0.0 103/ulNormal0.0-0.1[facility] HospitalComment on above: Performed By: #### CBC #### [facility] [address] [address] [address] Arjun Tamayosophils/100 WBC (Bld)0.4 %Normal0.2-2.0[facility] Comment on above:Performed By: #### CBC #### [facility] [address] [address] [address] Arjun Chadwick #0.1 103/ulNormal0.0-0.7The [facility] CenterComment on above: Performed By: #### CBC #### [facility] [address] [address] [address] Arjun Steenosinophils/100 WBC (Bld)1.5 %Normal0.9-7.0[facility] Comment on above:Performed By: #### CBC #### [facility] [address] [place] [address] Dr. Arjun Steenrythrocyte distribution width (RBC) [Ratio]13.7 %Wqttte47.0-15.0 [facility]ment [facility] above:Performed By: #### CBC #### [facility] [address] [place] [address] Dr. Arjun MenjivarHematocrit (Bld) [Volume fraction]41.9 %Critically low42.0-54.0 [facility] HospitalComment on above:Performed By: #### CBC #### [facility] [address] [place] [address] Dr. Arjun MenjivarHemoglobin (Bld) [Mass/Vol]13.7 g/dLCritically low14.0-18.0The [facility] CenterComment on above:Performed By: #### CBC #### [facility] [address] [place] [address] Dr. Arjun Parra #0.02 10e3/ulNormal0.00-0.03The [facility] CenterComment on above:Performed By: #### CBC #### [facility] [address] [place] [address] Dr. Arjun Parra %0.3 %Normal0.0-0.5The [facility] Hospitalment on above: Performed By: #### CBC #### [facility] [address] [place] [address] Dr. Arjun Aguilar #1.4 103/ulNormal1.2-3.8The [facility] CenterComment on above:Performed By: #### CBC #### [facility] [address] [place] [address] Dr. Arjun Slatermphocytes/100 WBC (Bld)16.9 %Critically low20.5-60.0[facility] Hospitalment on above:Performed By: #### CBC #### [facility] [address] [place] [address] Dr. Arjun BarreraUAL DIFF REQNONormalThe [facility] CenterComment on above: Performed By: #### CBC #### [facility] [address] [place] [address] Dr. Arjun Knight (RBC) [Entitic mass]28.8 knNkcwfm51.9-34.0The [facility]ayette Medical CenterComment on above:Performed By: #### CBC #### [facility] [address] [place] [address] Dr. Arjun Knight (RBC) [Mass/Vol]32.7 g/mLWwruih43.9-35.2The Harrisburg HospitalComment on above:Performed By: #### CBC #### [facility] [address] [place] [address] Dr. Arjun Knight (RBC) [Entitic vol]88.2 kBEzwnrw57.0-94.0The [facility] CenterComment on above:Performed By: #### CBC #### [facility] [address] [place] [address] Dr. Arjun Magana #0.5 103/ulNormal0.3-0.8The [facility] CenterComment on above:Performed By: #### CBC #### [facility] [address] [place] [address] Dr. Arjun Purdyocytes/100 WBC (Bld)5.9 %Normal1.7-12.0The [facility] Comment on above:Performed By: #### CBC #### [facility] [address] [place] [address] Dr. Arjun Ferraro #6.0 103/ulNormal1.4-6.5The [facility] CenterComment on above:Performed By: #### CBC #### [facility] [address] [place] [address] Dr. Arjun Phanutrophils/100 WBC (Bld)75.0 %Zdpcox84.0-75.0The [facility] CenterComment on above:Performed By: #### CBC #### [facility] [address] [place] [address] Dr. Arjun Portillolet mean volume (Bld) [Entitic vol]11.4 fLNormal9.5-13.5The [facility] CenterComment on above:Performed By: #### CBC #### [facility] [address] [place] [address] Dr. Arjun MenjivarPLT169 103/ncEgoajq387-808Tdx [facility] CenterComment on above: Performed By: #### CBC #### [facility] [address] [place] [address] Dr. Arjun MenjivarRBC4.75 106/ulNormal4.70-6.10The [facility] CenterComment on above:Performed By: #### CBC #### [facility] [address] [place] [address] Dr. Arjun MenjivarWBC8.0 103/ulNormal4.0-11.0The [facility] CenterComment on above: Performed By: #### CBC #### [facility] [address] [place] [address] Dr. Arjun MenjivarCT CSPINE WO CONon 24-22-6641EZ CSPINE WO CONEXAMINATION: CT HEAD WO CON, CT CSPINE WO [...] Electronically authenticated by: SALINA ESPINOZA Date: 2023 16:25[facility] HospitalCT HEAD WO CONon 95-15-3597SL HEAD WO CONEXAMINATION: CT HEAD WO CON HISTORY: UNSPECIFIED INJURY [...] Electronically authenticated by: TOSHIA ANDRES Date: 2023 21:30Normal The [facility] CenterPROF 14(COMP METB)on 32-93-6974Ekwhmdf [Mass/Vol]3.7 g/dL Normal3.4-5.0The [facility] CenterComment on above:Performed By: #### CMP ####[facility] [address] [place] [address]Dr. Yilan ChangAlbumin/Globulin [Mass ratio]1.1 {ratio}NormalMemorial Hospital Comment on above:Performed By: #### CMP ####[facility] Fl[address] [place], [place] [address]Dr.Yilan ChangALP [Catalytic activity/Vol]87 U/UWgaqku12-877Pwg [facility] CenterComment on above:Performed By: #### CMP ####[facility] G[address] [place], [place] [address]Dr. Yilan ChangALT [Catalytic activity/Vol]26 U/ZFcjtef86-76Qqy [facility] Comment on above:Performed By: #### CMP ####[facility] A[address] [place], [place] [address]Dr.Yilan ChangAnion gap [Moles/Vol]9.2 mmol/LNormalThe [facility] CenterComment on above:Performed By: #### CMP ####[facility] Gr[address]ysg[address] [place], [place] [address]Dr. Yilan ChangAST [Catalytic activity/Vol]20 U/JAfnayc77-41Zdc [facility] Comment on above:Performed By: #### CMP ####[facility] Ifgpukylkv[address] [place], [place] [address]Dr.Yilan ChangBilirubin [Mass/Vol]0.4 mg/dL Normal0.2-1.0The [facility] CenterComment on above:Performed By: #### CMP ####[facility] Z[address] [place], [place] [address]Dr. Yilan ChangCalcium [Mass/Vol]9.1 mg/dLNormal8.5-10.1The [facility] CenterComment on above:Performed By: #### CMP ####[facility] [address] [place] [address]Dr.Yilan ChangChloride [Moles/Vol]105 mmol/LNormal 98-107The [facility] CenterComment on above:Performed By: #### CMP ####[facility] [address] [place] [address]Dr.Yilan ChangCO2 [Moles/Vol]28.9 mmol/ZZxmywq31.0-32.0The [facility] CenterComment on above: Performed By: #### CMP ####[facility] S[address] [place], [place] [address]Dr.Yilan ChangCreatinine [Mass/Vol]1.23 mg/dLNormal 0.70-1.30The [facility] CenterComment on above:Performed By: #### CMP ####[facility] B[address]ieq[address] [place], [place] [address]Dr. Yilan ChangEGFR-AF SWAZI>60Normal>=60The [facility] CenterComment on above: Performed By: #### CMP ####[facility] H[address]ct[address] [place], [place] [address]Dr.Yilan ChangEGFR-NON AF WUVVPQKL25 mL/min/1.73m2 Critically low>=60The The [facility] Hospitalment on above:Performed By: #### CMP ####[facility] Ewswcinxch[address] [place], [place] [address]Dr. Yilan ChangGlobulin (S) [Mass/Vol]3.4 g/dLNormalThe [facility] CenterComment on above:Performed By: #### CMP ####[facility] G[address]mimwq[address] [place], [place] [address]Dr.Yilan ChangGlucose [Mass/Vol]126 mg/dLCritically chsz60-375Yog [facility] CenterComment on above:Performed By: #### CMP ####[facility] Wdfqrpbcxv[address] [place], [place] [address]Dr. Yilan ChangPotassium [Moles/Vol]4.1 mmol/LNormal3.5-5.1The [facility] Comment on above:Performed By: #### CMP ####[facility] Y[address] [place], [place] [address]Dr.Yilan ChangProtein [Mass/Vol]7.1 g/dL Normal6.4-8.2The [facility] CenterComment on above:Performed By: #### CMP ####[facility] [address]ub[address] [place], [place] [address]Dr. Yilan ChangSodium [Moles/Vol]139 mmol/FKsjfcy016-992Sva [facility] CenterComment on above:Performed By: #### CMP ####[facility] [address] [place], [place] [address]Dr.Yilan ChangUrea nitrogen [Mass/Vol]12.0 mg/dLNormal 7.0-18.0The [facility] CenterComment on above:Performed By: #### CMP ####[facility] B[address]lctib[address] [place], [place] [address]Dr. Yilan ChangUrea nitrogen/Creatinine [Mass ratio]9.8 mg/mgNormalThe [facility] CenterComment on above:Performed By: #### CMP ####[facility] [address] [place], [place] [address]Dr.Tannalan ChangPROTIMEon 60-09-1628ITP Coag (PPP) [Relative time]2.90 {INR}NormalMemorial Hospital Comment on above:Performed By: #### PTT, PT ####[facility] Z[address] [place], [place] [address]Dr. Tannalan ChangINR GUIDELINESSEE BELOWNormal The [facility] CenterComment on above:Result Comment: DESIRED INR: 2.0 - 3.0 CONDITIONS NOT LISTED BELOW 2.5 - 3.5 FOR PROSTHETIC HEART VALVE REPLACEMENT 2.5 - 3.5 RECURRENT THROMBOSISPerformed By: #### PTT, PT ####[facility] [address]nwsm[address] [place], [place] [address]Dr. Arjun ChangPT Coag (PPP) [Time]28.9 sCritically high9.0-11.6The [facility] CenterComment on above: Performed By: #### PTT, PT ####[facility] [address] [place], [place] [address]Aq. Arjun MenjivarPTReunion Rehabilitation Hospital Pe[facility] 88-82-2431oHPC Coag (Bld) [Time] 37.7 sCritically high22.3-36.2Memorial HospitalComment on above:Performed By: #### PTT, PT ####[facility] [address] [place], [place] [address]Hu. Arjun MenjivarXR PELVIS 1_2 VIEWSon 96-77-3523EN PELVIS 1_2 VIEWS EXAM: XR PELVIS 1_2 [...] Electronically authenticated by: LINDA WANG Date: 2023 16:14Toledo HospitalXR ERCP 1 HOUR FLUOROon 02-37-7090JC ERCP 1 HOUR FLUORO Fluoroscopic guidance for ERCP 11/09/2022 6:30 AM SWINE EXTENSION FIELD SPECIALIST History: DR ORDER;OTHER REASON Tech notes: WHAT SYMPTOMS ARE YOU EXPERIENCING? - cbd stones,FLUOROSCOPY TIME (MINUTES) - 2:43min,NUMBER OF FLUORO SPOT IMAGES - 35.00,mGy - 57.52 Findings: Fluoroscopic guidance was provided for ERCP. 2 minutes 43 seconds of fluoroscopy time was provided.35 images are submitted. Please see the procedure report for additional information. Impression: Fluoroscopic guidance was provided for ERCP as discussed above [] Electronically signed by: Radha Haji MD 11/10/2022 8:01 AM SWINE EXTENSION FIELD SPECIALIST Technologist: EDITA Dictated By: RADHA HAJI MD Signed By: RADHA HAJI MD Signed Out: 11/10/22 09:01:42[facility] Orthopedic CenterAnesthesiaon 76-25-3265ScrwoshjqsGbwvhjp: TITO GONCALVES Yehuda Age: 77 years Sex: Male : 1945 [...] vomiting. Postoperative hydration status: euvolemic. Notes: Normothermia. [facility] HospitalAnesthesiaPatient: TITO GONCALVES Age: 77 years Sex: Male : [...] release 325 mg = 1 caps, ORAL, [id number] trazodone = Desyrel 50 mg, ORAL, BID [...] available Procedure history: Endoscopic Retrograde Cholangiopancreatography (ERCP). (55741) on 11/09/2022 at 77 Years. Endoscopic Retrograde Cholangiopancreatography (ERCP). (59117) on 08/14/2021 at 76 Years. Esophagogastroduodenoscopy, flexible, transoral; with endoscopic ultrasound examination limited to the esophagus, stomach or duodenum, and adjacent structures (69991) on 07/10/2021 at 76 Years. Social History [...] palate, fauces, uvula visible). Assessment and Plan [place] [employer] Anesthesiologists (ASA) physical status classification: Class III. Anesthetic Preoperative Plan Anesthetic technique: Monitored anesthesia care. Induction: intravenously. Special monitoring: Standard ASA monitors.. Risks discussed: nausea, vomiting, sore throat, dental injury, allergic reaction, serious complications, Risks explained in detail as listed on the consent form. The patient's questions were answeredto satisfaction. The patient is OK to proceed. . Informed consent: signed by patient. Notes. This report was completed using voice recognition software. Verbal misinterpretations may occur. [facility] HospitalENDO Initial Data VS HW Prep-Texton [id number] Initial Data VS HW Prep-TextEndoscopy Intial Data VS HW Prep Entered On: [...] Yes Kaylyn Bettencourt RN - 11/09/2022 7:09 [facility] ENDO Outpatient Admission Data-Texton [id number] Outpatient Admission Data-TextEndoscopy OP Admission Data Entered On: 11/09/2022 7:12 EST Performed On: 11/09/2022 7:09 EST by Sg GAVIN, [facility] Assessment Mobility : Ambulatory Mental Status : Alert Oriented : Person, Place, Time Pacemaker/AICD : na Heart : Regular Lungs : Clear Abdomen : Soft Bowel Sounds All Quadrants : Present Prosthesis/Metal : BL knees Glasses : Yes Dentures : Yes Person Driving Pt Home : daughter Amna Surgeon Speak with Environmental Compliance Technician : Yes Voided : No Pain Level and Site : 0 Kaylyn Bettencourt RN - 11/09/2022 7:09 EST Present on Admission Medical Devices : None Medical Devices for Med Administration : None Sg GAVIN [facility] 11/09/2022 7:09 EST [place] Coma Eye Opening Response [place] : Spontaneously Best Verbal Response [place] : Oriented Best Motor Response [place] : Obeys simple commands [place] Coma Score : 15 Sg GAVIN [facility] 11/09/2022 7:09 EST Advance Directive *Advance Directive : Yes Sg GAVIN [facility] 11/09/2022 7:09 EST Outpatient Fall Risk GEN_Fall Risk Indicators_49304 : Age 65 or greater, Medications altering equilibrium or cognitive judgement Fall Risk Band On : Yes Sg GAVIN [facility] 11/09/2022 7:09 EST Screening-Safety Domestic Concerns : None Feeling Down, Depressed, Hopeless : Not at all Little Interest - Pleasure in Activities : Not at all Initial Depression Screen Score : 0 Depression Screening Score 0 : No Sg GAVIN [facility] 11/09/2022 7:09 EST Education Barriers to Learning : None evident TeachBack Methodology : TeachBack, Demonstration, Explanation, Printed Material Sg GAVIN [facility] 11/09/2022 7:09 EST ENDO Education Activity Expectations : Verbalizes understanding Anesthesia/Sedation : Verbalizes understanding Endo Post Procedure Care : Verbalizes understanding Follow-Up Care/Appointment : Verbalizes understanding Safety : Verbalizes understanding Rosalinda Bettencourt RN[facility]star [facility] 11/09/2022 7:09 [facility] In[facility] Patient Summaryon 21-73-5762Ekpqmseti Patient SummaryBerger Hospital Discharge Instructions [address] [place] [address] \.br\(Patient Copy)\.br\ \.br\ \.br\Name: TITO GONCALVES Yehuda : 1945 \.br\Diagnosis: \.br\ \.br\Allergies: sulfa drugs; penicillins; iodine topical\.br\ \.br\Registration Date: 11/09/22\.br\.br\.br\ \.br\ Current Date Time: 11/09/2022 08:44:54 \.br\ \.br\Address: [facility] [employer] [address] [facility] [address] \.br\Phone: [phone] \.br\ \.br\Primary Care Provider: \.br\Name: AUGUSTINE METZ\.br\Phone: [phone] \.br\ \.br\Thank you for choosing [facility] for your care. You are very important to us. Our goal is to demonstrate our high quality medical care and provide you with a very good patient experience.\.br\ You may receive a survey about our service. Please take the time to complete the survey and returnit so we can continue to enhance our service.\.br\ Thank you again for allowing [facility] to care for your medical needs. If you have any questions about your care or follow up information please contact your doctor.\.br\.br\Follow-up Instructions\.br\.br\.br\With: Address: When: \.br\PUJA HOLBROOK, Gastroenterology [address] [address] [facility], [address] [place] [address]\.br\ Business (1) Within Call for Appointment \.br\.br\.br\.br\.br\Procedure Images\.br\ Images \.br\Procedure images: \.br\.br\ \.br\ERCP_0006.jpg \.br\ERCP_0005.jpg \.br\ERCP_0004.jpg \.br\ \.br\ERCP_0003.jpg \.br\ERCP_0002.jpg \.br\ERCP_0001.jpg \.br\. \.br\.br\MedicationInformation\.br\Only Take The Medicines On This List. \.br\Keep This List and Bring It To Your Ne xt Appointment. \.br\Medicines To Take At Home: \.br\ [...] list with you to all follow up appointments.\.br\.br\Patient education materials, if any, will display below\.br\[facility] ENDOS COPY DEPARTMENT\.br\.br\FOLLOW UP CARE\.br\? For biopsy results, please call your doctor?s office in six (6) business days. \.br\.br\BECAUSE YOU WERE MEDICATED\.br\? DO NOT drive, operate machinery, make important decisions, sign legal documents, or perform activities that require coordination orbalance for 24 hours. \.br\? Rest for the remainder of the day. You may resume normal activity tomorrow, unless your doctor told you otherwise. \.br\? For your safety, have a responsible adult with you for the remainder of the day and overnight. \.br\.br\HOME MEDICATIONS\.br\? Continue taking yourhome medications as directed. \.br\? Certain medicines may increase your risk of bleeding and should only be resumed as directed by your doctor. These include Motrin, Advil, Aleve, all NSAIDs, Aspirin, Plavix, Coumadin, and other blood thinners/anticoagulants. \.br\DIET\.br\? Drink plenty of fluidstoday, unless your doctor told you otherwise. \.br\? Do not drink any kind of alcohol, including beer or wine. \.br\? Resume your diet as instructed. \.br\.br\GO TO THE EMERGENCY ROOM IF YOU NOTICE ANY OF THE FOLLOWING: \.br\These could be signs of an infection or a complication.\.br\.br\? Fever greater than 101 degrees\.br\? Persistent vomiting\.br\? Severe abdominal pain, other than gas cr amps\.br\? Chest pain and/or shortness of breath\.br\? Any bleeding and/or black tarry sto (more content not included)...NormalBerger HospitalOR Nursing Record - Endoon 62-66-3734NV Nursing Record - EndoOR Nursing Record - Endo Summary Primary Physician: PUJA HOLBROOK MD Finalized Date/Time: 11/09/22 08:27:34 Pt. Name: IVANNATITO D.O.B./Sex: 1945 Male Med Rec #: [id number] Physician: Financial #: [id number] Pt. Type: A Room/Bed: / Admit/Disch: 11/09/22 06:11:45 - Institution: Case Times - Endo Entry 1 Patient In Room Time 11/09/22 07:43:00 Out Room Time 11/09/22 08:24:00 Anesthesia Facility Times Induction Time 11/09/22 07:48:00 Stop Time 11/09/22 08:15:00 [place] Protocol Yes Completed Surgery Start Time 11/09/22 [...] Solomon RN, Minnie Role Performed Surgeon Primary Locomotive Switch Operator Primary Scrub Primary Time In 11/09/22 07:43:00 11/09/22 07:43:00 11/09/22 07:43:00 Time Out 11/09/22 08:24:00 11/09/22 08:24:00 11/09/22 08:24:00 Procedure ERCP(None) ERCP(None) ERCP(None) Last Modified By: Vitaly GAVIN, Martha Haider RN, Martha Barrera RN 11/09/22 08:21:41 11/09/22 08:21:41 11/09/22 08:21:41 Entry 4 Entry 5 Entry 6 Case Attendee Dena GAVINJosselin DO, JASON L WESSEL AA-C, JILLIAN Role Performed Locomotive Switch Operator Secondary Anesthesiologist Primary Anesthesia Asst/DANCE STUDIO MANAGER Time In 11/09/22 07:43:00 11/09/22 07:43:00 [...] RN 11/09/22 08:23 Martha Haider RN 11/09/22 08:27NoKettering Health HamiltonOperative Reporton [id number] ReportPatient: TITO GONCALVES Age: 77 years Sex: Male : [...] well. Complications encountered during the procedure were none.Estimated blood loss during the procedure was none. [...] 11/09/2022 08:26 EST, Constant Order, Discharge patient afterthe following assessments are completed., Athe the criteria commensurate with pre-admission status.See departmental policies for discharge criteria specific to procedures performed. Nutrition Services/Dietary: Diet Order (Order): 11/09/2022 08:26 EST, Clear Liquids. Education and Follow-up: Patient Instructions: PUJA HOLBROOK, Gastroenterology Within Call for Appointment. Notes: Follow-up in clinic as scheduled.[facility] Comment on above:Order Comment: Missing Attachment [id number] can be viewed in source system Missing Attachment [id number] can be viewed in source system Missing Attachment [id number] can be viewed in source system Missing Attachment [id number] can be viewed in source system Missing Attachment [id number] can be viewed in source system Missing Attachment [id number] can be viewed in source systemResult Comment: ACU Phase I - Endoon 86-29-9757MJRP Phase I - EndoPACU Phase I - Endo Summary Primary Physician: PUJA HOLBROOK MD Finalized Date/Time: 11/09/22 08:55:35 Pt. Name: IVANNA TITO Yehuda David/Sex: 1945 Male Med Rec #: [id number] Physician: Financial #: [id number] Pt. Type: A Room/Bed: / Admit/Disch: 11/09/22 06:11:45 - Institution: PACU I Case Times - Endo Entry 1 In PACU I 11/09/22 08:25:00 Ready for Transfer 11/09/22 09:19:00 Last Modified By: Sariah Schreiber RN 11/09/22 08:55:34 Finalized By: Sariah Schreiber RN Document Signatures Signed By: Sariah Schreiber RN 11/09/22 08:55NoWilson Health Glucose on 21-58-9076Pcmofoy [Mass/Vol]131 mg/nEZboj35-871PspaikoyhBerger HospitalComment on above:Performed By: #### [id number] ####[facility] [address] [place], [place] [phone] Director: Diogo Carcamo, MDPreop - Endoon 36-50-7825Hoqzf - Endo Preop - Endo Summary Primary Physician: PUJA HOLBROOK MD Finalized Date/Time: 11/09/22 07:13:53 Pt. Name: TITO GONCALVES /Sex: 1945 Male Med Rec #: [id number] Physician: Financial #: [id number] Pt. Type: A Room/Bed: / Admit/Disch: 11/09/22 06:11:45 - Institution: Preop - Case Times - Endo Entry 1 Patient Arrival Time 11/09/22 06:31:00 Patient Ready for 11/09/22 07:11:00 Surgery Report Given to n/a Last Modified By: Kaylyn Bettencourt RN 11/09/22 07:13:51 Finalized By: Kaylyn Bettencourt RN Document Signatures Signed By: Kaylyn Bettencourt RN 11/09/22 07:13NormalSRiverside Methodist HospitalProvider Letter - Ambulatoryon 44-68-8720Jegwtzgc Letter - AmbulatoryBEPATIENCE METZ, [address] [place] [address] RE: TITO IVANNA 11/09/2022 Dear AUGUSTINE METZ This document is [...] 08:20:00 EST - (11/09/2022) GI ERCP with AnesthesiaNormal Berger HospitalUniversal Protocol/Pre-Proc TimeOut-Texton 96-54-5208Vsbbzissg Protocol/Pre-Proc TimeOut-TextUniversal Protocol Entered On: 11/09/2022 7:13 EST Performed [...] Date), Correct Procedure, All Team Members are inAgreement Laterality : N/A Martha Haider RN - 11/09/2022 7:48 ESTNormKettering Health SpringfieldPhone Msgon 33-30-9979Zbrkc Msg From: Lori Cintron MA Sent: 11/08/2022 13:03:57 EST Caller Name: TITO GONCALVES; Caller Number: H Pt called to ask if he should take heart pills prior to procedure with Dr. Angelo 11/09, ERCP. In question: propafenone, carvedilol and benazepril and if he can take them around one hour prior to arrival which would be 5:30am. Pt was asked to speak with his outpatient surgery rn'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Normal Berger HospitalMRI ABDOMEN WO CONon 60-95-4830XNU ABDOMEN WO CON EXAMINATION: MRI ABDOMEN WO CON HISTORY: Cyst of pancreas COMPARISON: [...] Electronically authenticated by: SANTOS DC Date: 2022-11-01 09:53[facility] HospitalPhone Msgon 93-72-3376Ufqxc [facility] From: Fela Alexandre To: Caren Carvalho RN; Blanca Bazzi; Sent: 10/28/2022 09:12:23 EST Subject: Cardiac Clearance Caller Name: FILEMONJAMES TITO Yehuda; Caller Number: H Patient asking when to stop Coumadin. Colonoscopy scheduled 11/09/21 From: Blanca Bazzi To: Fela Alexandre; Sent: 10/28/2022 09:15:22 EST Subject: RE: Cardiac Clearance Caller Name: FILEMONTITO WISDOM; Caller Number: H Did he say who his Cycle Director was? From: Caren Carvalho RN To: Blanca Bazzi; Fela Alexandre; Sent: 10/28/2022 09:50:53 EST Subject: RE: Cardiac Clearance Caller Name: FILEMONJAMES TITO Yehuda; Caller Number: H He sees Dr. Metz sent for pt-Per Dr. Metz, pt can be off his Coumadin 5 days prior to his procedure. [facility] GI Physician Progress Noteon [id number] GI Physician Progress NoteChief Complaint Abdominal pain History of Present Illness 77-year-old male with recurrent history of choledocholithiasis last ERCP was done a year ago in [place] Patient had admission in hospital in [place] with fever and chills Patient has had [...] Est Pt Mod MDM / 30-39 min 54183, 10/26/2022 16:13:00 EST, Abdominal pain / Pancreatic cyst MR CP, 10/26/2022, Routine, PAIN, Abdominal pain / Pancreatic cyst 2. Pancreatic cyst K86.2 Pancreatic cyst stable very low CEA levels suggestive of simple serous cyst versus inflammatory cyst. Asymptomatic Ordered: AMB Follow - Up Appt Amb, 10/26/2022 16:13:00 EST, 4 weeks AMB Office/Outpt Est Pt Mod MDM / 30-39 min 46055, 10/26/2022 16:13:00 EST, Abdominal pain / Pancreatic cyst MR CP, 10/26/2022, Routine, PAIN, Abdominal pain / Pancreatic cyst Problem List/Past Medical History Ongoing Abdominal pain Abnormal LFTs (liver function tests) Arthritis Choledocholithiasis Diabetes Gallbladder disease GERD (gastroesophageal reflux disease) Hypertension Irregular heart rhythm Kidney stones Pancreatic cyst Sleep apnea Historical No qualifying data Procedure/Surgical History Endoscopic Retrograde Cholangiopancreatography (ERCP).: 08/14/21 Esophagogastroduodenoscopy, flexible, transoral; with endoscopic ultrasound examination limited [...] extended release, 325 mg= 1 caps, ORAL, [id number] trazodone = Desyrel, 50 mg, ORAL, BID [...] Care Team Primary Care Physician AUGUSTINE METZ [phone] Attending Physician PUJA HOLBROOK MD [phone] . Health Maintenance Pending (in the next year) There are no current recommendations pending Satisfied (in the past 1 year) There are no satisfied recommendations within the defined date range oKettering Health HamiltonComprehensive Intake - Texton 11-99-7834Lamzrqqnglkey Intake - TextComprehensive Intake Entered On: 10/26/2022 14:56 EST Performed [...] in, 183 cm) Body Mass Index Measured Samoan : 18.85 kg/m2 BSA Samoan : 1.79 m2 Ht/Wt Measurement Refused by [...] risk situation (congregated living, hemodialysis, infusion clinic, intermediate, assisted living, mcc, homeless fdc, etc.)? : No Lori Cintron MA - [...] Abnormal LFTs (liver function tests) (SNOMED CT :017106082 ) Name of Problem: Abnormal LFTs (liver function tests) ; Recorder: Blanca Bazzi; Confirmation: Confirmed ; Classification: Medical ; Code: 355274324 ; Contributor System: Thrive SoloChart; Last Updated: 07/01/2021 12:43 EDT ; Life Cycle Date: 07/01/2021 ; Life Cycle Status: Active ; Vocabulary: SNOMED CT Arthritis (SNOMED CT :4567331 ) Name of Problem: Arthritis ; Recorder: Blanca Bazzi; Confirmation: Confirmed ; Classification: Medical ; Code: 5134011 ; Contributor System: PowerChart ; Last Updated: 07/01/2021 12:43 EDT ; Life Cycle Date: 07/01/2021 ; Life Cycle Status: Active ; Vocabulary: SNOMED CT Choledocholithiasis (SNOMED CT :499469431 ) Name of Problem: Choledocholithiasis ; Recorder: PUJA HOLBROOK MD; Confirmation: Confirmed ; Classification: Medical ; Code: 569301785 ; Contributor System: Thrive SoloChart ; Last Updated: 07/01/2021 13:27 EDT ; Life Cycle Date: 07/01/2021 ; Life Cycle Status: Active ; Responsible Provider: PUJA HOLBROOK MD; Vocabulary: SNOMED CT Diabetes (SNOMED CT :675672821 ) Name of Problem: Diabetes ; Recorder: Blanca Bazzi; Confirmation: Confirmed ; Classification: Medical ; Code: 217508158 ; Contributor System: Thrive SoloChart ; Last Updated: 07/01/2021 12:43 EDT ; Life Cycle Date: 07/01/2021 ; Life Cycle Status: Active ; Vocabulary: SNOMED CT Gallbladder disease (SNOMED CT :493498562 ) Name of Problem: Gallbladder disease ; Recorder: Blanca Bazzi; Confirmation: Confirmed ; Classification: Medical ; Code: 768160679 ; Contributor System: PowerChart ; Last Updated: 07/01/2021 12:44 EDT ; Life Cycle Date: 07/01/2021 ; Life Cycle Status: Active ; Vocabulary: SNOMED CT GERD (gastroesophageal reflux disease) (SNOMED CT :717828857 ) Name of Problem: GERD (gastroesophageal reflux disease) ; Recorder: Blanca Bazzi; Confirmation: Confirmed ; Classification: Medical ; Code: 608591248 ; Contributor System: PowerChart ; Last Updated: 07/01/2021 12:44 EDT ; Life Cycle Date: 07/01/2021 ; Life Cycle Status: Active ; Vocabulary: SNOMED CT Hypertension (SNOMED CT :6484674035 ) Name of Problem: Hypertension ; Recorder: Blanca Bazzi; Confirmation: Confirmed; Classification: Medical ; Code: 4460318272 ; Contributor System: PowerChart ; Last Updated: 07/01/2021 12:44 EDT ; Life Cycle Date: 07/01/2021 ; Life Cycle Status: Active ; Vocabulary: SNOMED CT Irregular heart rhythm (SNOMED CT :801047814 ) Name of Problem: Irregular heart rhythm ; Recorder: Blanca Bazzi; Confirmation: Confirmed ; Classification: Medical (more content not included)...NormalBerger HospitalProvider Letter - Ambulatoryon [id number] Letter - AmbulatoryBENLOUANN METZ, [address] [place] [address] RE: TITO GONCALVES 10/26/2022 Dear AUGUSTINE METZ [...] 16:13:42 EST - (10/26/2022) *.AMB Office Visit NoteNormal Berger HospitalPhone Msgon 24-13-3171Vkvts Msg From: Lise Lawrence MA To: Caren Carvalho [...] other dilemma is he is leaving for [place] on 11/13 for 6 weeks. From: Caren [...] him until December. He has moved to [place] and Tito would be considered a new patient. His daughter did not feel he was acutely ill and that he can wait for the appointment next Tuesday.[facility] Orthopedic CenterGLYCOHEMOGLOBIN A1Con [id number] RECOMMENDATIONSEE [facility] Butler HospitalComment on above:Result Comment: ADA RECOMMENDED LIMIT 4.0 - 6.0 ADA THERAPEUTIC TARGET < 7.0 ACTION SUGGESTED > 7.0Performed By: #### A1C ####[facility] [address] [place] [address]Dr.Tannashukri ChangGlucose [Mass/Vol]163 mg/dL NormalMemorial HospitalComment on above:Performed By: #### A1C ####[facility] [address] [place] [id number].Arjun EawvvTiQ0a (Bld) [Mass fraction]7.3 %Critically high4.5-6.2Memorial HospitalComment on above:Performed By: #### A1C ####[facility] [address] [place] [id number].Arjun ChangDermatopathologyon 09-07-2022 DermatopathologyName: TITO GONCALVES Pathologist: KRISTEN OCONNOR MD Date of Procedure: 09/07/2022 Date Received: 09/07/2022 Date Reported 09/08/2022 Submitting Physician: MACARIO BUI MD, Location: [facility] Copy To/Referring/Attending: MD SABRA SIMS FINAL DIAGNOSIS 3 SLIDES, [facility] #[id number] (BX: 08/03/2022) A. 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 B. SKIN, RIGHT BAPTIST, SHAVE BIOPSY: MELANOMA IN SITU, PRESENT ON [...] M.D. CANCER SUMMARY REPORT A. 3 SLIDES, [facility] #[id number] (BX: 08/03/2022): SPECIMEN Procedure: Biopsy, shave Specimen Laterality: Right TUMOR Tumor Site: Skin of other and unspecified parts of face: Right sabianism Histologic Type: Melanoma in situ, lentigo maligna [...] ADDITIONAL FINDINGS Additional Findings: None ADDITIONAL TESTING Track Watchman Blocks: Normal Block: None Tumor Block: A1 Electronically Signed Out By KRISTEN OCONNOR MD/[facility] Diagnostic interpretation performed at [facility] Dermatopath Lab [id number], [facility] [address] Microscopic Description: A. Microscopic examination reveals nests [...] OTHER Specimens Submitted As: A: 3 SLIDES, [facility] #[id number] (BX: 08/03/2022) Gross Description: Received for consultation from [facility] are three slides labeled [id number] (BX: 08/03/2022) along with the corresponding pathology report. Slide/Block Description 3 SLIDES, [id number]. Keep Slides: N Slides Returned: N Personal Consult: Essentia HealthComment on above:Performed By: #### D #### DermatopathologyGLYCOHEMOGLOBIN A1Con [id number] RECOMMENDATIONSEE BELOW NormalThe [facility] Medical CenterComment on above:Result Comment: ADA RECOMMENDED LIMIT 4.0 - 6.0 ADA THERAPEUTIC TARGET < 7.0 ACTION SUGGESTED > 7.0Performed By: #### A1C ####[facility] [address] [place] [address]Dr.Arjun MenjivarGlucose [Mass/Vol]151 mg/dLNoSelect Medical OhioHealth Rehabilitation Hospital - DublinComment on above:Performed By: #### A1C ####[facility] [address] [place], [place] [address]Dr.Arjun WjpgwUoV5r (Bld) [Mass fraction]6.9 % Critically high4.5-6.2The [facility] CenterComment on above:Performed By: #### A1C ####[facility] [address] [place], [place] [address]Dr. Arjun MenjivarXR ESOPHAGUSon 21-17-1807TF ESOPHAGUSEXAMINATION: XR ESOPHAGUS HISTORY: Dysphagia COMPARISON: No relevant comparison available. [...] Electronically authenticated by: CARMEN PABLO Date: 2022-06-28 14:07Toledo HospitalXR MODIFIED BARIUM SWALLOWon 62-86-0074QY MODIFIED BARIUM SWALLOWEXAMINATION: XR MODIFIED BARIUM SWALLOW HISTORY: Foreign body [...] Electronically authenticated by: SANTOS DC Date: 2022-06-15 11:11Toledo HospitalAmbulatory Visit Summaryon 49-35-6949Znctvkrlha Visit Summary TITO GONCALVES :1945 Visit Date:05/03/2022 [...] [facility] [address], [place] [address] [phone] Medications What How Much When Instructions Unchanged acetaminophen (Tylenol Extra Strength 500 mg oral tablet) By Mouth Every 6 hours taking 2every 8 hours Contact prescribing physician if questions [...] By Mouth Every 8 hours Contact prescribing physicianif questions or concerns Unchanged trazodone (traZODONE 50 [...] What are the si (more content not included)...[facility] Patient Educationon 89-62-5118Oavfcgg EducationUrology Benign Prostatic Hyperplasia Benign prostatic hyperplasia (BPH) [...] urine that may remain in your bladder afteryou finish urinating. ? A digital rectal exam. [...] this procedure, a tool is inserted through theopening at the tip of the penis (urethra). [...] procedure uses radio frequencies to destroy and removea small amount of prostate tissue. ? Interstitial laser coagulation (ILC). This procedure uses a laser to destroy and remove a small amount of prostate tissue. ? Transurethral electrovaporization (TUVP). This procedure uses electrodes to destroy and remove a small amount of prostate tissue. ? Prostatic urethral lift. This procedure inserts an implant to push the lobes of the prostate awayfrom the urethra. Follow these instructions at home: ? Take kraf-icr-dvnawpp and prescription medicines only as told by [...] treatment. ? You d (more content not included)...[facility] HospitalUrology Office/Clinic Noteon 07-02-7854Cbhxxyx Office/Clinic NoteChief Complaint 1 year with KUB HPI Staff Tito is here today for a 1 year follow up with a KUB. KUB done on 04/26/22 at [facility] impression showedno appreciable urinary tract calculi. Previous DX: Kidney [...] denies hematuria, denies discharge, denies urinary frequency, deniesurinary hesitancy, denies nocturia, denies incontinence, denies genital [...] [facility] [address], [place] [address] [phone] Additional Instructions: PRN Patient Education Benign Prostatic [...] than 100 in lifetim (more content not included)...[facility] HospitalComment on above:Result Comment: Electronically Signed By: Mc ALMONTE MD\.br\Date and Time Signed: 05/03/22 09:26 EDT\.br\Electronically Co-Signed By: Jerri Lyles\.br\Date and Time Co-Signed: 05/03/22 09:24 EDTRAD - MISCon 86-09-9389KXY - [id number]#1.00CD:127 [facility] HospitalXR KUB 1 VIEWon 35-49-0935PM KUB 1 VIEW EXAMINATION: XR KUB 1 [...] Electronically authenticated by: SANTOS DC Date: 2022-04-27 06:18NoSelect Medical OhioHealth Rehabilitation Hospital - DublinGLYCOHEMOGLOBIN A1Con 79-98-6787EVL RECOMMENDATIONSEE BELOW NormalThe [facility] CenterComment on above:Result Comment: ADA RECOMMENDED LIMIT 4.0 - 6.0 ADA THERAPEUTIC TARGET < 7.0 ACTION SUGGESTED > 7.0Performed By: #### A1C #### [facility] [address] [address] [address] Arjun MenjivarGlucose [Mass/Vol]126 mg/dLToledo HospitalComment on above:Performed By: #### A1C #### [facility] [address] [address] [address] Arjun MenjivarHbA1c (Bld) [Mass fraction]6.0 %Normal4.5-6.2The [facility] Medical CenterComment on above:Performed By: #### A1C #### [facility] [address] [place] [address] Dr. Arjun Alicia AND TIBCon 04-07-2022% USADGDRQCS01.4 %NormalThe [facility] CenterComment on above:Performed By: #### FETIBC, B12FOL #### [facility] [address] [place] [address] Dr. Arjun Alicia [Mass/Vol]62.0 ug/dLCritically low65.0-175.0The [facility] CenterComment on above:Performed By: #### FETIBC, B12FOL #### [facility] [address] [place] [address] Dr. Arjun Arredondo QMAQFP674.0 ug/dLCritically ngu733.0-450.0The [facility] CenterComment on above:Performed By: #### FETIBC, B12FOL #### [facility] [address] [place] [address] Dr. Arjun Rutherford B12 AND FOLATEon 39-51-1937Dliccyxhw (Vitamin B12) [Mass/Vol] 597.0 pg/oHRjwtxi011.0-986.0The [facility] CenterComment on above:Performed By: #### FETIBC, B12FOL #### [facility] [address] [place] [address] Dr. Arjun MenjivarFOLATE21.50 ng/mLNormal8.60-58.90The [facility] CenterComment on above:Performed By: #### FETIBC, B12FOL #### [facility] [address] [place] [address] Dr. Arjun Gonzalez 28-57-9976LTHUTJUJ BAS0.0 10*3/uLNormal0.0-0.2AviProMedica Fostoria Community HospitalComment on above:Result Comment: Testing performed at [place] [address]Performed By: #### JANELLE, ACBC, PT #### Testing performed at [place], [place] [address]ABSOLUTE EOS0.00 10*3/uLNormal0.0-0.7AClermont County Hospital Comment on above:Performed By: #### HUGH LUIS, PT #### Testing performed at [address] [address]QDUACCUA NEUTROPHIL COUNT8.5 10*3/uLHigh1.4-6.5AClermont County HospitalComment on above:Performed By: #### HUGH LUIS, PT #### Testing performed at [address] [address]Rpntmgptp/100 WBC (Bld)0.1 %Normal0.0-2.0[facility] Comment on above:Performed By: #### HUGH LUIS, PT #### Testing performed at [address] [address]RMJRMGGXG DIFFNormalAClermont County HospitalComment on above: Performed By: #### HUGH LUIS, PT #### Testing performed at [address] [address]Dcbaeswfjdu/100 WBC (Bld)0.0 %Normal0.0-11.0[facility] HospitalComment on above:Performed By: #### HUGH LUIS, PT #### Testing performed at [address] [address]Tspvtxktvvj (Bld) [#/Vol]0.60 10*3/uLLow1.2-3.4AClermont County HospitalComment on above:Performed By: #### HUGH LUIS, PT #### Testing performed at [address] [address]Rtsziwxbiqe/100 WBC (Bld)6.4 %Low20.0-55.0[facility] Comment on above:Performed By: #### HUGH LUIS, PT #### Testing performed at [address] [address]Lixpcvfhy (Bld) [#/Vol]0.4 10*3/uLNormal0.0-0.7AClermont County HospitalComment on above:Performed By: #### HUGH LUIS, PT #### Testing performed at [address] [address]Dqrswluor/100 WBC (Bld)4.1 %Normal0.0-10.0[facility] Comment on above:Performed By: #### HUGH LUIS, PT #### Testing performed at [address] [address]Kuihghfjzxf/100 WBC (Bld)89.4 %High37.0-75.0[facility] HospitalComment on above:Performed By: #### HUGH LUIS, PT #### Testing performed at [address] [address]Bmdqlbcyxse distribution width (RBC) [Ratio]17.0 %High11.5-14.5 [facility] HospitalComment on above:Performed By: #### HUGH LUIS, PT #### Testing performed at [address] [address]Unomthkblz (Bld) [Volume fraction]33.9 %Low42.0-52.0[facility] HospitalComment on above:Performed By: #### HUGH LUIS, PT #### Testing performed at [address] [address]Uqfovxgdka (Bld) [Mass/Vol]11.7 g/dLLow14.0-18.0[facility] HospitalComment on above:Performed By: #### HUGH LUIS, PT #### Testing performed at [address] [address]SAY (RBC) [Entitic mass]30.0 yfQehraf98.0-35.0[facility] HospitalComment on above:Performed By: #### HUGH LUIS, PT #### Testing performed at [address] [address]WLKK (RBC) [Mass/Vol]34.5 g/kEHnkqkm35.0-37.0[facility] HospitalComment on above:Performed By: #### HUGH LUIS, PT #### Testing performed at [address] [address]PIV (RBC) [Entitic vol]87.2 hELqfafe13.0-100.0[facility] HospitalComment on above:Performed By: #### HUGH LUIS, PT #### Testing performed at [address] [address]Yegaoucr mean volume (Bld) [Entitic vol]9.2 fLNormal7.4-11.0 [facility] HospitalComment on above:Performed By: #### HUGH LUIS, PT #### Testing performed at [address] [address]Nfspabdyy (Bld) [#/Vol]154 10*3/dNYouqjd044.0-400.0[facility] HospitalComment on above:Performed By: #### HUGH LUIS, PT #### Testing performed at [address] [address]UCO (Bld) [#/Vol]3.89 10*6/uLLow4.0-6.1AClermont County Hospital Comment on above:Performed By: #### HUGH LUIS, PT #### Testing performed at [address] [address]NUX (Bld) [#/Vol]9.5 10*3/uLNormal3.6-11.0[facility] Comment on above:Performed By: #### HUGH LUIS, PT #### Testing performed at [address] [address]AYN, EDIF, PLATELETon 27-88-9660MOLFPQRX BASOPHIL COUNT0.0 10*3/uL0.0 - 0.2 10*3/uLTrihealth Bethesda North HospitalComment on above:Testing performed at [place] [address]Basophils/100 WBC (Bld)0.1 %0.0 - 2.0 %[facility] HospitalDifferential cell count method Nom (Bld)AUTO DIFF%[facility] HospitalEosinophils (Bld) [#/Vol]0.00 10*3/uL0.0 - 0.7 10*3/[facility] HospitalEosinophils/100 WBC (Bld)0.0 %0.0 - 11.0 %[facility] HospitalErythrocyte distribution width (RBC) [Ratio]17.0 %High11.5 - 14.5 %[facility] Hematocrit (Bld) [Volume fraction]33.9 %Low42.0 - 52.0 %[facility] Hemoglobin (Bld) [Mass/Vol]11.7 g/dLMercy Health Kings Mills HospitalInterpretation and review of laboratory resultsAbnormSouthern [place] Medical CenterLymphocytes (Bld) [#/Vol] 0.60 10*3/uLLow1.2 - 3.4 10*3/[facility] HospitalLymphocytes/100 WBC (Bld)6.4 %Low20.0 - 55.0 %[facility] HospitalMCH (RBC) [Entitic mass]30.0 pg26.0 - 35.0 PGASuburban Community Hospital & Brentwood HospitalMCHC (RBC) [Mass/Vol]34.5 g/dLTrihealth Bethesda North HospitalMCV (RBC) [Entitic vol]87.[address] [facility] HospitalMonocytes (Bld) [#/Vol]0.4 10*3/uL0.0 - 0.7 10*3/[facility] HospitalMonocytes/100 WBC (Bld)4.1 %0.0 - 10.0 %[facility] HospitalNeutrophils (Bld) [#/Vol]8.5 10*3/uLHigh1.4 - 6.5 10*3/[facility] HospitalNeutrophils/100 WBC (Bld)89.4 %High37.0 - 75.0 %[facility] Platelet mean volume (Bld) [Entitic vol]9.[address] Anne HospitalPlatelets (Bld) [#/Vol]154 10*3/uL130.0 - 400.0 10*3/[facility] HospitalRBC (Bld) [#/Vol]3.89 10*6/uLLow4.0 - 6.1 10*6/[facility] HospitalWBC (Bld) [#/Vol]9.5 10*3/uL3.6 - 11.0 10*3/uLAviSelect Medical Specialty Hospital - Columbus SystemPROTIMEon 51-74-6680ETV Coag (PPP) [Relative time]1.37 {INR}High0.85-1.10AClermont County HospitalComment on above:Result Comment: 2.0-3.0 THERAPEUTIC RANGE 2.5-3.5 MECHANICAL VALVE RANGE Testing performed at [place] [address]Performed By: #### HUGH LUIS, PT #### Testing performed at [address] [address]EJ Coag (PPP) [Time]16.9 sHigh11.8-14.4AClermont County Hospital Comment on above:Performed By: #### HUGH LUIS, PT #### Testing performed at [address] [address]NPCHBMZ-RFYhv 37-77-4278JTN Coag (PPP) [Relative time]1.37 {INR} HighTrihealth Bethesda North HospitalComment on above: 2.0-3.0 THERAPEUTIC RANGE 2.5-3.5 MECHANICAL VALVE RANGE Testing performed at [place] [address] Interpretation and review of laboratory resultsAbnormSouthern [place] Medical CenterPT Coag (PPP) [Time]16.[address] [facility] [address] Medical CampusRENAL FUNCTION PANELon 87-30-3189Vihpmtg [Mass/Vol]3.3 G/dlLow3.5 - 5.0 G/dlTrihealth Bethesda North Hospital Calcium [Mass/Vol]7.9 mg/dLMercy Health Kings Mills HospitalChloride [Moles/Vol]106 mmol/L [facility] HospitalComment on above:Please note: Triglyceride levels of 600mg/dL or higher may positively bias chloride results by approximately 2.1 mmolCO2 [Moles/Vol]23 mmol/LAvNew Ulm Medical Center SystemCreatinine [Mass/Vol]1.20 mg/dLTrihealth Bethesda North HospitalGFR COMMENTAverage GFR for 70+ years old = 75.[facility] Comment on above:Chronic Kidney disease, GFR = <60. Kidney failure, GFR = <15. The GFR estimate is not adjusted for extreme body surface area or acute process, nor has it been validated for women or ethnic groups other than and . Testing performed at [place], [place] [address] GFR/1.73 sq M.predicted among blacks MDRD (S/P/Bld) [Vol rate/Area]76 mL/min/{1.73_m2}ml/min/1.73sq.[facility]test[facility] HospitalGFR/1.73 sq M.predicted among non-blacks MDRD (S/P/Bld) [Vol rate/Area]63 mL/min/{1.73_m2}ml/min/1.73sq.[facility]testant HospitalGlucose post fast [Mass/Vol]230 mg/dLGerman HospitalComment on above: NORMAL <100 mg/dL PREDIABETES 101-126 mg/dL DIABETES 126 mg/dL or higher Interpretation and review of laboratory resultsAbnormSouthern [place] Medical Center Phosphate [Mass/Vol]2.9 mg/dLTrihealth Bethesda North HospitalPotassium [Moles/Vol]4.5 mmol/L [facility] Medical Centerodium [Moles/Vol]136 mmol/LLowASuburban Community Hospital & Brentwood HospitalUrea nitrogen [Mass/Vol]22 mg/dLChildren's Hospital Colorado South CampusRENAL PANEL,FASTINGon 92-03-3859VDQOFOK3.3 G/dlLow3.5-5.0[facility] HospitalComment on above:Performed By: #### HUGH LUIS, PT #### Testing performed at [address] [address]Qplnmeq [Mass/Vol]7.9 mg/dLLow8.4-10.2AClermont County Hospital Comment on above:Performed By: #### HUGH LUIS, PT #### Testing performed at [address] [address]Gtrtufoo [Moles/Vol]106 mmol/MNqycar47-415PvrwzOhiohealth Marion General Hospital Comment on above:Result Comment: Please note: Triglyceride levels of 600mg/dL or higher may positively bias chlorideresults by approximately 2.1 mmolPerformed By: #### HUGH LUIS, PT #### Testing performed at [address] [address]GQ7 [Moles/Vol]23 mmol/ELvdykn24-58GtbvzOhiohealth Marion General HospitalComment on above:Performed By: #### HUGH LUIS, PT #### Testing performed at [place] [address]Creatinine [Mass/Vol]1.20 mg/dLNormal0.7-1.2AClermont County HospitalComment on above:Performed By: #### HUGH LUIS, PT #### Testing performed at [address] [address]RHC. GFR, Ijbcccfk77 ml/min/1.73sq.mNUNM Cancer CenterComment on above:Performed By: #### HUGH LUIS, PT #### Testing performed at [place] [address]EST. GFR,Non Tbawufxi97 ml/min/1.73sq.[facility] General HospitalComment on above:Performed By: #### HUGH LUIS, PT #### Testing performed at [address] [address]RQI InformationAverage GFR for 70+ years old = 75.[facility] Medical CenterbComment on above:Result Comment: Chronic Kidney disease, GFR = <60. Kidney failure, GFR = <15. The GFR estimate is not adjusted for extreme body surface area or acute process, nor has it been validated for women or ethnic groups other than and . Testing performed at [place] [address]Performed By: #### HUGH LUIS, PT #### Testing performed at [place] [address]Glucose [Mass/Vol]230 mg/fQNfsf58-707OvwwjOhiohealth Marion General Hospital Comment on above:Result Comment: NORMAL <100 mg/dL PREDIABETES 101-126 mg/dL DIABETES 126 mg/dL or higherPerformed By: #### HUGH LUIS, PT #### Testing performed at [place] [address]PHOSPHOROUS2.9 MG/DLNormal2.5-4.5AClermont County HospitalComment on above:Performed By: #### HUGH LUIS, PT #### Testing performed at [address] [address]Ralsvhngk [Moles/Vol]4.5 mmol/LNormal3.5-5.1AClermont County HospitalComment on above:Performed By: #### HUGH LUIS, PT #### Testing performed at [place] [address]Sodium [Moles/Vol]136 mmol/OGau721-327ExqpgOhiohealth Marion General Hospital Comment on above:Performed By: #### HUGH LUIS, PT #### Testing performed at [place] [address]Urea nitrogen [Mass/Vol]22 mg/dLRoslindale General Hospital-[facility] Comment on above:Performed By: #### HUGH LUIS, PT #### Testing performed at [address] [address]VKVRLAZ (POC DEVICE)on 61-51-0584ELBLOLR, POINT OF AJAA946Vz[address] [place], [place] [address]Interpretation and review of laboratory resultsAbnoOur Lady of Mercy HospitalZhzhbhRzvlziqf402435Hnram Health SystemComment on above:Testing performed at [address]MRSA SCREEN on 47-41-7821ZWWL DNA HERIBERTO+probe Ql (Unsp spec)Not detectedNormalNOT DETECTED [facility] HospitalComment on above:Performed By: #### MRSAST #### Testing performed at [address] [address]QLGGK AUREUS SCREENNot detectedNormalNOT DETECTEDOhiohealth Marion General HospitalComment on above:Result Comment: Testing performed at [place] [address]Performed By: #### MRSAST #### Testing performed at [address] [address]KFJKD CORONAVIRUSon 03-88-7399NTGIZEXUDKctu test was performed using isothermal HERIBERTO and has been approved as Emergency Use Authorization (EUA) for the qualitative detection ahHYAH-VnR-2 nucleic acid.[facility] Navajo Medical CenterbComment on above:Result Comment: Testing performed at [place], [place] [address]Pzkslhabf By: #### COVID #### Testing performed at [address] [address]BWVL-ZiL-0 (COVID-19) RNA HERIBERTO+probe Ql (Unsp spec)Not detected NormalNOT DETECTEDOhiohealth Marion General HospitalComment on above:Result Comment: Negative results do not preclude SARS-CoV-2 infection and should not be used as thesole basis for treatment or other patient management [...] the patient is critically ill or clinically deteriorating.Performed By: #### COVID #### Testing performed at [address] [address]QGTBB CORONAVIRUS LAB 1 - NASOPHARYNGEALon 32-36-5052EKMJAPGTO -1This test was performed using isothermal HERIBERTO and has been approved as Emergency Use Authorization (EUA) for the qualitative detection tdBSLB-BeB-6 nucleic acid.[facility] HospitalComment on above:Testing performed at [place], [place] [address]HGBI-UyI-2 (COVID-19) RNA HERIBERTO+probe Ql (Unsp spec)Not detectedNOT [place] [facility] Harding HospitalComment on above:Negative results do not preclude SARS-CoV-2 infection and [...] patient is critically ill or clinically deteriorating. [facility] HospitalPOCT GLUCOSEon 22-29-1377Heldmdu [Mass/Vol]118 mg/dLHigh 70-100[facility] HospitalComment on above:Performed By: #### POCGLU #### Testing performed at [address] [address]HEQCVIPS[address]1979GtyvulUpiyz Galion HospitalComment on above:Result Comment: Testing performed at [place] [address] Performed By: #### POCGLU #### Testing performed at [address] [address]JWUPBBGzs 06-08-6561FOZ Coag (PPP) [Relative time]1.36 {INR}High 0.85-1.10AClermont County HospitalComment on above:Result Comment: 2.0-3.0 THERAPEUTIC RANGE 2.5-3.5 MECHANICAL VALVE RANGE Testing performed at [place] [address]Performed By: #### PT #### Testing performed at [address] [address]MS Coag (PPP) [Time]16.8 sHigh11.8-14.4AClermont County Hospital Comment on above:Performed By: #### PT #### Testing performed at [address] [address]YGZBINF-ZIQyt 71-79-2441ROC Coag (PPP) [Relative time]1.36 {INR} HighTrihealth Bethesda North HospitalComment on above: 2.0-3.0 THERAPEUTIC RANGE 2.5-3.5 MECHANICAL VALVE RANGE Testing performed at [place] [address] Interpretation and review of laboratory resultsAbnoOur Lady of Mercy HospitalPT Coag (PPP) [Time]16.[address] [facility] Medical CampusPTTon 73-14-4500iARE Coag (Bld) [Time]28.7 iUbpdde54.4-34.7AClermont County Hospital Comment on above:Result Comment: CARDIAC AND PE/DVT THERAPUTIC RANGE 69-97 SEC VASCULAR/THREATENED LIMB THERAPUTIC RANGE 80-112 SEC Testing performed at [place] [address]Performed By: #### PTT #### Testing performed at [place] [id number] Coag (Bld) [Time]28.7 [facility] SystemComment on above: CARDIAC AND PE/DVT THERAPUTIC RANGE 69-97 SEC VASCULAR/THREATENED LIMB THERAPUTIC RANGE 80-112 SEC Testing performed [address]EN: MRSA ONLY, NARES (ISOLATION SCREEN)on 01-69-9125ZAQO isol Org specific cx Ql (Nose)Not detectedNOT DETECTEDTrihealth Bethes[facility] Hospital STAPHYOCOCCUS AUREUS BY PCRNot detectedNOT DETECTEDTrihealth Bethesda North HospitalComment on above:Testing performed at [address] SystemTYPE AND SCREEN CROSSMATCH CONVERTIBLEon 67-37-5340VNSH AND SCREEN CROSSMATCH CONVERTIBLEWORKUP EXPIRES 03/18/2022,2359 ABO/RH(D) A POSITIVE ANTIBODY SCREEN NEGATIVE ARM BAND NUMBER [id number] Testing performed at [place] [address]NoAcoma-Canoncito-Laguna HospitalComment on above:Performed By: #### TSCC #### Testing performed at [place], [place] [address]TYPE AND SCREEN - POSSIBLE TRANSFUSIONon 42-52-4222RWU and Rh group Nom (Bld )PositiveTrihealth Bethesda North HospitalARM BAND AJEQJBGS56548Fzkgx Health SystemARM BAND NUMBERTesting performed at [address]Blood group antibody screen QlNegativeWhite Hospital SystemEXPIRATION DATE03/18/2022,2359ASelect Medical Specialty [facility] SystemXR KNEE RIGHT 2 VIEWSon 46-52-5576AO KNEE RIGHT 2 VIEWSEXAM: XR KNEE RIGHT 2 VIEWS HISTORY: COMPARISON: FINDINGS: Joint replacement is seen with overall preservation of normal alignment. No abnormal lucency is seen around the hardware. IMPRESSION: Joint replacement without hardware complicationShiprock-Northern Navajo Medical CenterbXR Knee - right 2 Viewson 88-72-0352VFRUBVKUCT: Joint replacement without hardware complication RADIOLOGYEXAM: XR KNEE RIGHT 2 VIEWS HISTORY: COMPARISON: FINDINGS: Joint replacement is seen with overall preservation of normal alignment. No abnormal lucency is seen around the hardware. Abel Waite MD - 03/15/2022 EXAM: XR KNEE RIGHT 2 VIEWS HISTORY: COMPARISON: FINDINGS: Joint replacement is seen with overall preservation of normal alignment. No abnormal lucency is seen around the hardware. IMPRESSION IMPRESSION: Joint replacement without hardware complication coCommentRadiology Study observation (narrative)coCommentXR Knee - right 2 ViewsOrdered By: Abel Resendiz on [email or web address] Work Phone: Operative Reporton [id number] ReportMR#: [id number] [facility] Pt. Name: Tito Goncalves Room #: CC Discharge Date: Birthdate: 1945 OPERATIVE REPORT DATE OF SURGERY: 06/13/2019 SURGEON: Gene Mccray MD PROCEDURE PERFORMED: Transesophageal echocardiogram and cardioversion. INDICATION: Atrial fibrillation. FELLOW: Patric Flores MD PROCEDURE IN DETAIL: An informed consent was obtained from the patient after explaining the indications, risks, and benefits as well as alternatives. The patient understood and agreed, and signed the consent form. The patient was brought to the laboratory clerk and a transesophageal echocardiogram was performed under [...] throughout the procedure. Electronically Signed by: Gene Mccray MD 06/14/2019 10:36 A Gene Mccray MD I was present for the entire procedure. Date Dict: 06/13/2019/12:48 P/Patric Flores MD Date Trans: 06/14/2019 12:23 A/asad DN_JN:[id number] cc: Augustine Metz D.O. [address] [place] [address], [facility] [id number] Ryan Cardenas M.D. [address] [facility] [address]ImxiuaFoeProMedica Flower HospitalHealth Services Clinic Reporton [id number] Services Clinic ReportType: OrthopedicDictated by: To be signed by: Transcribed by: Transcribed D/ Dictation D/ Report: DATE OF VISIT: 06/08/2017 Re: Tito Goncalves HISTORY OF PRESENT ILLNESS: Patient is here today for followup. He is an established patient of [facility]. He is status post revision arthroplasty for retinacular disruption, reports that he is doing well. He is pleased with the outcome of the surgery. The knee feels better now than it has in some time. He has no new questions, concerns, or complaints for me. PHYSICAL EXAMINATION: This is an alert, oriented, age appropriatemale in no acute distress, pleasant and cooperative; 6 feet, 254 pounds, temperature 97.4 and 0 on a 10-point scale. The lower extremities are evaluated. He has no gross deformity, normal stability, 5 /5 motor, intact sensation, normal coordination and reflexes. Skin is intact, no nodules. Motion ofthe knee is around 0-120 degrees, stable examination. Palpably there is no defect in the retinacular disruption. There is some minimal warmth as expected given the postoperative nature of the knee. IMPRESSION: Status post left knee revision, repair of medial retinacular disruption. PLAN: I reviewedmy findings with Tito. I am pleased with the performance and his recovery thus far. I would like to follow up with him in January for repeat clinical and radiographic examination. Call with any questions or concerns in the meantime.NormalAvita Health System [facility] Vital Signs Date TimeVital SignValuePerforming HkfjuehwuXpvdtxxu84-62-9561 10:Body ovxsly409.72 cmBenjamin Ball DO Work Phone: [facility]10-17-2025 10:16040 Body mass index (BMI) [Ratio]35.9 kg/w7Kokpnceo Ball DO Work Phone: 1419)[facility] [place], [place] [address]10-17-2025 10:16-0400 Body nddbgy601.1 kgBenjamin Ball DO Work Phone: [phone])[address] [place], [place] [address]10-17-2025 10:16-0400 Diastolic blood nkaobnpj91 mm[Hg]Augustine Ball DO Work Phone: 1419)[facility] [place], [place] [address]10-17-2025 10:16-0400 Heart rate58 /minBenjamin Ball DO Work Phone: 1(419)[address] [place], [place] 37[address]10-17-2025 10:16-0400 Respiratory rate12 /minBenjamin Ball DO Work Phone: 1419)[address] [place], [place] 37[address]10-17-2025 10:16-0400 Systolic blood saxgvyez961 mm[Hg]Augustine Ball DO Work Phone: 1419)[address] [place], [place] 3733707-08-2025 10:36-0400 Body .72 cmBenjamin Ball DO Work Phone: 1419)[address] [place], [place] 3733707-08-2025 10:36-0400 Body mass index (BMI) [Ratio]36 kg/k7Okqwxqqt Ball DO Work Phone: 1(419)[address] [place], [place] 3733707-08-2025 10:36-0400 Body .55 kgBenjamin Ball DO Work Phone: 1419)[address] [place], [place] 3733707-08-2025 10:36-0400 Diastolic blood mm[Hg]Augustine Ball DO Work Phone: 1419)[facility] [place], [place] [address]407-08-2025 10:36-0400 Heart rate59 /minBenjamin Ball DO Work Phone: 1419)[facility] [place], [place] [address]407-08-2025 10:36-0400 Respiratory rate12 /minBenjamin Ball DO Work Phone: 1419)[facility] [place], [place] [address]407-08-2025 10:36-0400 Systolic blood culubwhp000 mm[Hg]Augustine Ball DO Work Phone: 1419)[address]05-21-2025 11:42-0400 Body schaoq834.72 cmBenjamin Ball DO Work Phone: 1419)[address] [place], [place] 3733705-21-2025 11:42-0400 Body mass index (BMI) [Ratio]37.4 kg/i0Eslapgex Ball DO Work Phone: 1419)[address] [place], [place] 37[address]05-21-2025 11:42-0400 Body lybitl713.69 kgBenjamin Ball DO Work Phone: 1419)[address] [place], [place] 37[address]05-21-2025 11:42-0400 Diastolic blood ijytgysa85 mm[Hg]Augustine Ball DO Work Phone: 1419)[address] [place], [place] 37[address]05-21-2025 11:42-0400 Heart rate51 /minBenjamin Ball DO Work Phone: 1419)[address] [place], [place] 37[address]05-21-2025 11:42-0400 Respiratory rate12 /minBenjamin Ball DO Work Phone: 1419)[address] [place], [place] 37[address]05-21-2025 11:42-0400 Systolic blood vgohjpaz592 mm[Hg]Augustine Ball DO Work Phone: 1(546)[address] [place], [place] 3733704-16-2025 09:57-0400 Body bsmozc048.72 cmBenjamin Ball DO Work Phone: 1(415)[address] [place], [place] 37[address]704-16-2025 09:57-0400 Body mass index (BMI) [Ratio]37.7 kg/m0Eresuyug Ball DO Work Phone: 1419)[address] [place], [place] 37[address]704-16-2025 09:57-0400 Body nrclap345.6 kgBenjamin Ball DO Work Phone: 1419)[address] [place], [place] [address]704-16-2025 09:57-0400 Diastolic blood dwqmonjk48 mm[Hg]Augustine Ball DO Work Phone: 1419)[address] [place], [place] [address]704-16-2025 09:57-0400 Heart rate58 /minBenjamin Ball DO Work Phone: [facility]04-16-2025 09:57-0400 Respiratory rate12 /minBenjamin Ball DO Work Phone: [facility]04-16-2025 09:57-0400 Systolic blood vmojmwim108 mm[Hg]Augustine Ball DO Work Phone: [facility]04-08-2025 10:01-0400 Body woumwt053.9 cmBenjamin Murcek DO Work Phone: 1(690)224-[facility] HospitalSac-Osage HospitalMmujarnhor44-55-3711 10:01-0400Body mass index (BMI) [Ratio]33.91 kg/t3Tmzdojdz Murcek DO Work Phone: 1(055)754-[facility] HospitalKpwfadmmfr83-67-7412 10:01-0400Body uhznzp386.4 kgBenjamin Murcek DO Work Phone: 1(767)9-[facility] HospitalUsppazffum51-70-6033 09:49-0500Body jgaond287.9 cmBenjamin Murcek DO Work Phone: 1(351)106-[facility] HospitalSac-Os[facility] HospitalCrfmfgwxjx25-71-4013 09:49-0500Body mass index (BMI) [Ratio]33.91 kg/k1Kyyhrqah Murcek DO Work Phone: 1(313)417-[facility] HospitalPjtdyzcscg14-43-0438 09:49-0500Body nyjriv731.4 kgBenjamin Murcek DO Work Phone: 1(777)[address]01-27-2025 11:30-0500Diastolic blood kzlosorx54 mm[Hg]Augustine Ball DO Work Phone: [facility]01-27-2025 11:30-0500 Heart rate52 /minBenjamin Ball DO Work Phone: [facility]01-27-2025 11:30-0500 Respiratory rate14 /minBenjamin Ball DO Work Phone: [phone]01-27-2025 11:30-0500 SaO2% (BldA) [Mass fraction]94 %Augustine Ball DO Work Phone: [facility]01-27-2025 11:30-0500 Systolic blood cowfhoxi726 mm[Hg]Augustine Ball DO Work Phone: [phone]01-27-2025 10:55-0500 Inhaled oxygen flow rate0 L/minBenjamin Ball DO Work Phone: [phone]01-27-2025 10:25-0500 Body lwyfmoqlgxb93.5 [degF]Augustine Ball DO Work Phone: [phone]01-27-2025 07:25-0500 Body nebgfu814.88 cmBenjamin Ball DO Work Phone: [phone]01-27-2025 07:25-0500 Body iyewyf786.4 kgBenjamin Ball DO Work Phone: [phone]01-22-2025 13:34-0500 Body notggd741.9 cmBenjamin Murcek DO Work Phone: [facility] HospitalXrjbgtdjpt10-27-2886 13:34-0500Body mass index (BMI) [Ratio]33.91 kg/l0Wveaqkmw Murcek DO Work Phone: [facility] HospitalVpnohhruvg02-98-1333 13:34-0500Body .4 kgBenjamin Murcek DO Work Phone: [facility] HospitalVbdfacktdh02-14-0686 12:55-0500Diastolic blood funfwibp35 mm[Hg]Christin Bolton MD Work Phone: [facility] HospitalUrmexycfkj72-46-7333 12:55-0500Systolic blood ocejoerz172 mm[Hg]Christin Bolton MD Work Phone: [facility] HospitalNjmxfdtdbe41-50-9241 08:38-0500Body ispzwh402.72 cmThe [facility]01-15-2025 08:38-0500Body mass index (BMI) [Ratio]37.3 kg/g4TagzmgbxjThe [facility]01-15-2025 08:38-0500Body evnfee467.18 kgThe [facility]01-15-2025 08:38-0500Diastolic blood ewgvtrcl96 mm[Hg][facility]01-15-2025 08:38-0500 Heart rate62 /[facility]01-15-2025 08:38-0500 Respiratory rate12 /[facility]01-15-2025 08:38-0500 Systolic blood jlzedrsu659 mm[Hg][facility]01-08-2025 08:09-0500Body ghitat118.9 cmNicole Anat DO Work Phone: [facility] HospitalJjgfnsipva82-77-9829 08:09-0500Body mass index (BMI) [Ratio]34.23 kg/q8Wtorcr Anat DO Work Phone: [facility] HospitalThxycaommm95-55-6091 08:09-0500Body .49 kgNicole Anat DO Work Phone: [facility] HospitalYpkmnwrmpy90-97-4003 08:09-0500Diastolic blood mm[Hg]Kingston Anat DO Work Phone: 1(626)898-[facility] HospitalFbnduuyaqa13-57-0894 08:09-0500Heart rate62 /min Kingston Anat DO Work Phone: [facility] HospitalJvoagpxxtn20-45-6626 08:09-8669OnT2% (BldA) [Mass fraction]95 %Kingston Anat DO Work Phone: [facility] HospitalUlxjaaaxya07-17-6349 08:09-0500Systolic blood ttaggdcx788 mm[Hg]Kingston Anat DO Work Phone: [facility] HospitalJqoqxsnhgz15-04-1738 09:22-0500Body .72 cm[facility]11-26-2024 09:22-0500Body mass index (BMI) [Ratio]37.5 kg/g1IidiuwpasThe [facility]11-26-2024 09:22-0500Body oxfmjy191.15 kgThe [facility]11-26-2024 09:22-0500Diastolic blood flpzyhfi11 mm[Hg][facility]11-26-2024 09:22-0500 Heart rate62 /[facility]11-26-2024 09:22-0500 Respiratory rate12 /[facility]11-26-2024 09:22-0500 Systolic blood damgtsbg715 mm[Hg][facility]10-14-2024 08:50-0400Body yunbkq883.72 cmThe [facility]10-14-2024 08:50-0400Body mass index (BMI) [Ratio]37.1 kg/h7UtlauizzaThe [facility]10-14-2024 08:50-0400Body akfgct290.78 kgThe [facility] 07-09-2024 08:50-0400Diastolic blood fcsqamii23 mm[Hg][facility]10-14-2024 08:50-0400Heart rate65 /[facility] 07-09-2024 08:50-0400Respiratory rate12 /[facility] 07-09-2024 08:50-0400Systolic blood hwixsvfe747 mm[Hg][facility]10-02-2024 08:54-0400Body acgzww121.9 cmAlos Muniz SHOULDER JOINER Work Phone: [facility] HospitalRszejtwqmj92-77-9311 08:54-0400Body mass index (BMI) [Ratio]33.23 kg/g6EaqgksSimran Muniz SHOULDER JOINER Work Phone: [facility] HospitalRfqiusbghe32-50-8910 08:54-0400Body yygebq326.13 kgSimran Muniz SHOULDER JOINER Work Phone: [facility] JoplinQenquybnpj73-34-1263 08:54-0400Diastolic blood ubvgsskh25 mm[Hg]Simran Muniz SHOULDER JOINER Work Phone: [facility] JoplinQmlgoglsnk02-71-2306 08:54-0400Heart rate56 /min Simran Muniz SHOULDER JOINER Work Phone: [facility]OM[facility] JoplinMuybzrsyzp01-92-1952 08:54-0043LkQ2% (BldA) [Mass fraction]92 %Simran Muniz SHOULDER JOINER Work Phone: [facility] HospitalJeajayeixq98-19-1288 08:54-0400Systolic blood sdvrergp552 mm[Hg]Simran Cristy SHOULDER JOINER Work Phone: [facility] HospitalPdvqtlxxra80-19-2632 11:140400Body wknhuo428.72 cmThe [facility]09-09-2024 11:140400Body mass index (BMI) [Ratio]37.1 kg/b9TzzuqfjzkThe [facility]09-09-2024 11:140400Body bzxnpe779.78 kgThe [facility]09-09-2024 11:140400Diastolic blood vpurpmeo67 mm[Hg][facility]09-09-2024 11:14-0400 Heart rate68 /[facility]09-09-2024 11:14-0400 Respiratory rate18 /[facility]09-09-2024 11:14-0400 SaO2% (BldA) [Mass fraction]99 %[facility]09-09-2024 11:140400Systolic blood amnadpeo491 mm[Hg][facility] 04-04-2024 11:190400Body jlkuqm886.72 cmDO Augustine Ball Work Phone: [facility]07-10-2024 11:19-0400 Body mass index (BMI) [Ratio]36.6 kg/m2DO Augustine Ball Work Phone: [facility]07-10-2024 11:19-0400 Body .37 kgDO Augustine Ball Work Phone: [facility]07-10-2024 11:19-0400 Diastolic blood qolrpjcr96 mm[Hg]DO Augustine Ball Work Phone: [facility]07-10-2024 11:19-0400 Heart rate55 /minDO Augustine Ball Work Phone: [facility]07-10-2024 11:19-0400 Respiratory rate12 /minDO Augustine Ball Work Phone: 1(419)[address] [place], [place] 3733707-10-2024 11:19-0400 Systolic blood nomoutor094 mm[Hg]DO Augustine Ball Work Phone: 1(329)[address] [place], [place] 3733706-03-2024 09:21-0400 Body .72 cmDO Augustine Ball Work Phone: 1(065)[address] [place], [place] 3733706-03-2024 09:21-0400 Body mass index (BMI) [Ratio]36.7 kg/m2DO Augustine Ball Work Phone: 1(769)[address] [place], [place] 3733706-03-2024 09:21-0400 Body jbroex696.48 kgDO Augustine Ball Work Phone: 1(936)[address] [place], [place] 3733706-03-2024 09:21-0400 Diastolic blood hsgplteh46 mm[Hg]DO Augustine Ball Work Phone: 1(267)[address] [place], [place] 3733706-03-2024 09:21-0400 Heart rate60 /minDO Augustine Ball Work Phone: 1(090)[address]06-03-2024 09:21-0400 Respiratory rate12 /minDO Augustine Ball Work Phone: 1(686)[address] [place], [place] 3733706-03-2024 09:21-0400 Systolic blood oyeagnfn259 mm[Hg]DO Augustine Ball Work Phone: 1(239)[address] [place], [place] 3733705-31-2024 17:02-0400 Diastolic blood ohcdnlwf66 mm[Hg]DO Augustine Ball Work Phone: 1(894)[address]05-31-2024 17:02-0400 Heart rate55 /minDO Augustine Ball Work Phone: 1(029)383-[address] [place], [place] 26[address]405-31-2024 17:02-0400 Respiratory rate16 /minDO Augustine Ball Work Phone: 1(022)[address] [place], [place] 3733705-31-2024 17:02-0400 SaO2% (BldA) [Mass fraction]97 %DO Augustine Ball Work Phone: 1(217)[address]05-31-2024 17:02-0400 Systolic blood ejzjljmh913 mm[Hg]DO Augustine Newser Work Phone: [facility]05-31-2024 16:20-0400 Body vssquyoldgp56 [degF]DO Augustine Newser Work Phone: [facility]05-31-2024 15:55-0400 Inhaled oxygen flow rate8 L/minDO Augustine Newser Work Phone: [facility]05-31-2024 15:38-0400 Body dylxwq156.88 cmDO Augustine Newser Work Phone: [facility]05-31-2024 15:38-0400 Body mass index (BMI) [Ratio]32.5 kg/m2DO Augustine Newser Work Phone: [facility]05-31-2024 15:38-0400 Body kgDO Augustine Newser Work Phone: [facility]05-07-2024 15:34-0400 Body dafyzp138.61 cmThe [facility]05-07-2024 15:34-0400Body mass index (BMI) [Ratio]34.5 kg/f0NnlkhndghThe [facility] Hospital05-07-2024 15:34-0400Body alrjwz611.07 kgThe [facility]05-07-2024 15:34-0400Diastolic blood ekyhqxad09 mm[Hg][facility] 01-31-2024 15:34-0400Heart rate53 /[facility] 01-31-2024 15:34-0400Respiratory rate12 /[facility] 01-31-2024 15:34-0400Systolic blood fjhewxre663 mm[Hg][facility]02-05-2024 10:30-0500Body heightBenmariselaDebteye Other [employer] [facility] [employer] Other 02-05-2024 10:30-0500Body mass index (BMI) [Ratio] 33.47 kg/w6Plckwouf Newser Other [facility] [employer] Other 02-05-2024 10:30-0500Body .41 kgBenjamin Ball Other [facility] [employer] Other 02-05-2024 10:30-0500Diastolic blood xjvgezxl62 mm[Hg] Augustine Ball Other [facility] [employer] Other 02-05-2024 10:30-0500Respiratory rate12 /minBenjamin Ball Other [facility] [employer] Other 02-05-2024 10:30-0500Systolic blood uujevhqk629 mm[Hg] Augustine Ball Other [place] [employer] Other 06-21-2023 11:19-0400Body .9 cmChad Virginie BROADBAND ENGINEER-REPTILE KEEPER Work Phone: 1(610)535-MOOI06-21-2023 11:19-0400Body mass index (BMI) [Ratio]33.23 kg/m2Azul Carballo BROADBAND ENGINEER-REPTILE KEEPER Work Phone: 1(167)715-MOOI06-21-2023 11:19-0400Body hgaioegxzaq13.2 [degF]Azul Carballo BROADBAND ENGINEER-REPTILE KEEPER Work Phone: coComment06-21-2023 11:19-0400Body weight 111.13 kgAzul Carballo BROADBAND ENGINEER-REPTILE KEEPER Work Phone: 1(610)243-MOOI04-12-2023 12:00-0400Body height Augustine Ball Other [place] [employer] Other 04-12-2023 12:00-0400Body mass index (BMI) [Ratio] 33.36 kg/k1Euwqfpht Ball Other [place] [employer] Other 04-12-2023 12:00-0400Body .04 kgBenjamin Ball Other [employer] Other 04-12-2023 12:00-0400Diastolic blood hsuyugjb64 mm[Hg] Augustine Ball Other [employer] Other 04-12-2023 12:00-0400Respiratory rate12 /minBenjamin Ball Other [employer] Other 04-12-2023 12:00-0400Systolic blood mm[Hg] Augustine Ball Other [employer] Other 01-09-2023 12:00-0500Body heightBenjamin Ball Other [place] [employer] Other 01-09-2023 12:00-0500Body mass index (BMI) [Ratio] 33.44 kg/n4Jjxayjij Ball Other [employer] Other 01-09-2023 12:00-0500Body wxerzj931.32 kgBenjamin Ball Other [employer] Other 01-09-2023 12:00-0500Diastolic blood mm[Hg] Augustine Ball Other [employer] Other 01-09-2023 12:00-0500Respiratory rate12 /minBenjamin Ball Other [employer] Other 01-09-2023 12:00-0500Systolic blood wqvorrib070 mm[Hg] Augustine Ball Other [employer] Other 01-06-2023 08:30-0500Diastolic blood qeybwhex99 mm[Hg] [facility]arsonDept. [facility] Derm[facility] 01-06-2023 08:30-0500Systolic blood emieyyig465 mm[Hg] [facility]ari LarsonDept. of Dermatology 10-13-2022 11:47-0400Body efiafm388.9 Cathy Bedoya MD Work Phone: [facility]10-13-2022 11:47-0400Body mass index (BMI) [Ratio]33.23 kg/m1ExfszPastor Bedoya MD Work Phone: [facility] [employer] Xirqjh59-27-9262 11:47-0400Body weight 111.13 kgPastor Bedoya MD Work Phone: [facility]08-08-2022 08:48-0400Blood Pressure LocationConyac [facility] 08-08-2022 08:48-0400Diastolic blood atsmeyuv01 mm[Hg] Mc ALMONTE [facility] 08-08-2022 08:48-0400Heart rate70 /minPatrick [employer] [facility] 08-08-2022 08:48-0400Respiratory rate16 /minPatrick [employer] [facility] 08-08-2022 08:48-0400Systolic blood hzigaoet120 mm[Hg] Mc ALMONTE [facility] 07-14-2022 09:49-0400Body hummth859.9 [employer] Work Phone: 1(166)947-[address] [place], [place] 6545607-14-2022 09:49-0400Body mass index (BMI) [Ratio]33.23 kg/m2Azul Carballo APRN-REPTILE KEEPER Work Phone: 1(613)726-[address] [place], [place] 6545607-14-2022 09:49-0400Body owyvzibarrk60.91 [degF]Azul Carballo APRN-REPTILE KEEPER Work Phone: 1(283)318-[address] [place], [place] 6545607-14-2022 09:49-0400Body weight 111.13 kgAzul Carballo APRN-REPTILE KEEPER Work Phone: 1(866)620-[address] [place], [place] 6545606-21-2022 11:00-0400Body mhgohfjodlh16.7 [degF]Pastor Bedoya MD Work Phone: 1(211)084-[address] [place], [place] 6545606-21-2022 11:00-0400Diastolic blood mm[Hg]Pastor Bedoya MD Work Phone: 1(384)[address]06-21-2022 11:00-0400Heart rate77 /Chasidy Bedoya MD Work Phone: 1(506)717-[address] [place], [place] 6545606-21-2022 11:00-0400Respiratory rate14 /Chasidy Bedoya MD Work Phone: 1(480)266-[address] [place], [place] 6545606-21-2022 11:00-4649AbD9% (BldA) [Mass fraction]96 %Pastor Bedoya MD Work Phone: [phone] [place], [place] 6545606-21-2022 11:00-0400Systolic blood eggnjgyq331 mm[Hg]Pastor Bedoya MD Work Phone: [phone] [place], [place] 6545606-20-2022 09:00-0400Body height 182.9 cmSromina Bedoya MD Work Phone: [phone])265-[address] [place], [place] 6545606-20-2022 09:00-0400Body mass index (BMI) [Ratio]31.73 kg/x4EjcvoPastor Bedoya MD Work Phone: 1([phone])276-[address] [place], [place] 6545606-20-2022 09:00-0400Body weight 106.14 kgPastor Bedoya MD Work Phone: [facility]04-28-2022 12:57-0400Body height 182.9 cmSromina Bedoya MD Work Phone: [facility]04-28-2022 12:57-0400Body mass index (BMI) [Ratio]33.23 kg/a6GgumyPastor Bedoya MD Work Phone: [facility]04-28-2022 12:57-0400Body czgswoxewgz51.2 [degF]Pastor Bedoya MD Work Phone: [facility]04-28-2022 12:57-0400Body weight 111.13 kgPastor Bedoya MD Work Phone: [facility]02-09-2022 14:30-0500Body height Carmen Femi Other [place] [employer] Other 06-25-2020 11:06-0400BMI (Body Mass Index)33.63 kg/m2 [facility]06-25-2020 11:06-0400Body Nzxgehvkqol00.5 [degF][facility] VWBMTO42-19-6710 11:06-0400Body cthyue765.49 kgMattel [facility]'s [facility] 03-20-2020 11:06-5183Vixadg522.9 [facility] 00:00-0500 >na<Damari Connorept. of Dermatology Encounters Encounter DateEncounter TypeCare ProviderFacilityStart: 07-19-2025 End: 60-61-5530Wbpjcilita Dodd DO Work Phone: [facility] EyeStart: 07-19-2025 End: 48-72-3133Zllaztrod Dodd DO Work Phone: [facility] EyeStart: 07-19-2025 End: 36-23-6453npmwomwyclRKODXIFP D ZAHLERNot AvailableStart: 07-12-2025 End: 51-74-1062bgooglclxbGgdvzojv Ball DO Work Phone: -[facility]Start: 07-12-2025 End: 22-07-9797Vidqfpo encounter procedureBenlouann Metz DO-[facility] Work Phone: Start: 07-04-2025 End: 80-68-6005Xtmvqv flowsheetNatalie A Felter BROADBAND ENGINEER-REPTILE KEEPER Work Phone: no[facility] DermatologyStart: 07-04-2025 End: 79-66-6464Irapwb flowsheetNatalie A Felter BROADBAND ENGINEER-REPTILE KEEPER Work Phone: noCollege [facility] DermatologyStart: 07-04-2025 End: 86-92-3745Tzustktm Result EncounterNatalie A Felter BROADBAND ENGINEER-REPTILE KEEPER Work Phone: noGA External Department UnsolicitedStart: 07-04-2025 End: 28-11-8141Djkwbz outpatient visit 15 minutesNatalie A Felter BROADBAND ENGINEER-REPTILE KEEPER Work Phone: noCollege [facility] DermatologyComment on above:Seborrheic keratosis; Lentigines; Capillary angioma; Telangiectasia of face; History of malignant melanoma of skin; History of basal cell carcinoma; Melanocytic nevi of trunk; Actinic keratosis; Neoplasm of unspecified behavior of bone, soft tissue, and skinStart: 07-04-2025 End: 39-77-4130qsbmnmeawiOLUPOXN A JUSTOERNot AvailableStart: 72-26-1404Mhl- patient / Non-visitNicole J [facility] Work Phone: Start: 06-25-2025 End: 41-16-9168mklunsyhrbJDJXWLV UK Healthcaretart: 63-18-4205Uvg-patient / Non-visitBenmariselamin Isaías DO-[facility] Work Phone: Start: 04-02-2025 End: 38-24-1441yeddjxxonoDbfkrthg Ball DO Work Phone: [facility] Work Phone: Start: 04-02-2025 End: 99-54-4393Ekbnbrm encounter procedureBenlouann Metz DO-[facility] Work Phone: Start: 97-65-8824Zph-patient / Non-visitBenjamin Isaías DO-[facility] Work Phone: Start: 02-13-2025 End: 80-22-6076Wqmdenm encounter procedureBenlouann Metz DO-[facility] Work Phone: Start: 20-49-3383Ijv-patient / Non-visitJESSICA A SUSANNAH DO-[facility] Work Phone: Start: 39-77-1795Onn-patient / Non-visitCatmichelle Lacey CMA-[facility] Work Phone: Start: 69-28-6631Cqw-patient / Non-visitJESSICA A SUSANNAH DO-[facility] Work Phone: Start: 10-35-6855Cun-patient / Non-visitJeleslie Hogan DO-[facility] Work Phone: Start: 01-11-2025 End: 04-57-6590hvclwhffhcNGWODD OKLULÚ[facility] Start: 90-15-4738Xfu-patient / Non-visitEhab Damon Murphy-[facility] Work Phone: Start: 01-09-2025 End: 35-14-2133rownthqvrnEkjchslx Ball DO Work Phone: [facility] Work Phone: Start: 01-09-2025 End: 77-95-4496Rofhyrk encounter procedureBenlouann Metz DO Work Phone: [facility] Work Phone: Start: 01-03-2025 End: 68-19-5849Jurqwj flowsheetNatalie A Felter BROADBAND ENGINEER-REPTILE KEEPER Work Phone: noms SWS DERMStart: 01-03-2025 End: 73-95-2241Dzmgoc flowsheetNatalie A Felter BROADBAND ENGINEER-REPTILE KEEPER Work Phone: noms SWS DERMStart: 01-03-2025 End: 17-42-1703Xnsyty outpatient visit 15 minutesNatalie A Felter BROADBAND ENGINEER-REPTILE KEEPER Work Phone: noms SWS DERMComment on above:Melanocytic nevus of trunk (Primary Dx); Melanocytic nevus of lower extremity, unspecified laterality; Seborrheic keratosis; Lentigines; Capillary angioma; Telangiectasia of face; Sebaceous hyperplasia of face; History of malignant melanoma of skin; History of basal cell carcinoma; Actinic keratosisStart: 01-03-2025 End: 92-37-3150tqwradhhaqQSOYJGI A FELTERNot AvailableStart: 01-01-2025 End: 11-15-5837Jjrpwh flowsheetBenjamin W Murcek DO Work Phone: noms ENT SANDUSKYStart: 01-01-2025 End: 84-69-3108Htcjnf flowsheetBenjamin W Murcek DO Work Phone: noms ENT SANDUSKYStart: 01-01-2025 End: 07-60-8534Pgxfqv follow up visit related to original pxBenjamin W Murcek DO Work Phone: noms ENT SANDUSKYComment on above:Skin cancer of nose (Primary Dx)Start: 01-01-2025 End: 45-02-3293ylupqdazwxUGAETUBL W MURCEKNot AvailableStart: 12-28-2024 End: 57-46-9538Uqgbkh flowsheetJonathan D Normahler DO Work Phone: noms NB OPHTStart: 12-28-2024 End: 38-32-7375Ydnjxb flowsheetJonathan D Zahler DO Work Phone: noms NB OPHTStart: 12-28-2024 End: 44-99-8138ExaauhJfxiqgwf D Zahler DO Work Phone: NODY NB OPHTComment on above:Age-related nuclear cataract of both eyes (Primary Dx)Start: 10-30-2024 End: 81-37-5059Bhdqvn flowsheetBenjamin W Murcek DO Work Phone: noms ENT SANDUSKYStart: 10-30-2024 End: 40-00-0966Pvvqtg flowsheetBenjamin W Murcek DO Work Phone: noms ENT SANDUSKYStart: 10-30-2024 End: 80-82-0010Mjshyz follow up visit related to original pxBenjamin W Murcek DO Work Phone: noms ENT SANDUSKYComment on above:Mohs defect of nose (Primary Dx)Start: 10-30-2024 End: 35-73-6185osykkkafsaXUEVQLNQ W MURCEKNot AvailableStart: 10-22-2024 End: 39-24-8737msuhzmmdlfESOSLARW W MURCEKNot AvailableStart: 10-22-2024 End: 03-56-7055Ksfpumlw Result EncounterBenjamin W Murcek DO Work Phone: noms External Department UnsolicitedStart: 10-22-2024 End: 37-97-3119Xmcbdqax Result EncounterBenjamin W Murcek DO Work Phone: noms External Department UnsolicitedStart: 10-22-2024 End: 23-73-6823Ngdhkvddj to same day surgery centerBenjamin Ball DO Work Phone: [facility] CenterStart: 10-22-2024 End: 80-35-5825mqlfxhyribGtjgaymm Ball DO Work Phone: [facility] Work Phone: Start: 10-17-2024 End: 88-98-2109Djfgdqj encounter procedureBenjamin Ball DO Work Phone: [facility]pf-Xqu[facility] [facility] Work Phone: Start: 10-17-2024 End: 87-08-8651iycbzjhgosVczdrlqt Ball DO Work Phone: [facility] Work Phone: Start: 93-32-0305Jvuvasprt for preprocedural laboratory examinationBenjayaw MorinLeehe [facility] Physician GroupStart: 10-17-2024 End: 80-21-9438Ovxchj flowsheetBenjamin W Murcek DO Work Phone: noms ENT SANDUSKYStart: 10-17-2024 End: 70-41-0755Wshsek flowsheetBenjamin W Murcek DO Work Phone: noms ENT SANDUSKYStart: 10-17-2024 End: 15-30-8742Nshsvgxq Result EncounterBenjamin W Murcek DO Work Phone: noms External Department UnsolicitedStart: 10-17-2024 End: 85-14-5704Pxjbcc outpatient visit 25 minutesBenjamin W Murcek DO Work Phone: noms ENT SANDUSKYComment on above:Mohs defect of nose (Primary Dx)Start: 10-17-2024 End: 41-98-9979fmsghbuiacOZCWHKHA W MURCEKNot AvailableStart: 10-16-2024 End: 24-55-0483Ijjgvpb encounter procedureChrsitin Bolton MD Work Phone: noms SWS DERMComment on above:Basal cell carcinoma (BCC) of dorsum of noseStart: 10-16-2024 End: 89-26-8633bkarkkhjavVIZMHF E FLEMINGNot AvailableStart: 10-10-2024 End: 61-14-5585atkregtxeuTlfucnpbvProMedica Bay Park Hospital Work Phone: Start: 10-10-2024 End: 15-78-5984Roqqwlo encounter procedureCarolinas [facility] Work Phone: Start: 10-04-2024 End: 81-45-4826Ywwzvyr encounter procedureNatnelly Jose Felter BROADBAND ENGINEER-REPTILE KEEPER Work Phone: noms SWS DERMComment on above:Neoplasm of unspecified behavior of bone, soft tissue, and skin (Primary Dx)Start: 10-04-2024 End: 88-43-8835Yuugai flowsheetNatalie A Felter BROADBAND ENGINEER-REPTILE KEEPER Work Phone: NOMS SWS DERMStart: 10-04-2024 End: 65-09-2630Sjkidx flowsheetNatalie A Felter BROADBAND ENGINEER-REPTILE KEEPER Work Phone: noms SWS DERMStart: 10-04-2024 End: 78-44-3621khqecirdphNNTFNER A JUSTOERNot AvailableStart: 10-03-2024 End: 14-53-3464Bkqjje flowsheetNicole Anat DO Work Phone: ana BELLEVUEStart: 10-03-2024 End: 99-24-2227Lyewys flowsheetNicole Anat DO Work Phone: ana BELLEVUEStart: 10-03-2024 End: 74-82-1607Ydqhxk outpatient visit 25 minutesNicole Anat DO Work Phone: ana BELLEVUEComment on above:CUBA (obstructive sleep apnea) (Primary Dx); PLMD (periodic limb movement disorder); Daytime hypersomnolence; Snoring; Primary insomniaStart: 10-03-2024 End: 73-16-7364dnrprncpmoUDHEQL DANNERNot AvailableStart: 09-07-2024 End: 57-55-4890Bcyynt flowsheetJose R Greenhler DO Work Phone: NOMS NB OPHTStart: 09-07-2024 End: 89-08-1558Utnsrt flowsheetJose R Hogan Zahler DO Work Phone: NOMS NB OPHTStart: 09-07-2024 End: 41-74-9984xjlodubpzbTTEECPTA D JUAlex AvailableStart: 08-21-2024 End: 58-21-5209Wgpagdx encounter procedureCarolinas [facility] Physician GroupMagruder [facility] Hospital Work Phone: Start: 88-08-8659Cpk-patient / Non-visitCar[facility]as [facility] Physician GroupMagruder [facility] Work Phone: Start: 87-92-4507Xru-patient / Non-visitCarolinas [facility] Physician GroupPe[facility]health [facility] Work Phone: Start: 07-11-2024 End: 80-34-2592mpkqgnzpluRRYNOhioHealthtart: 97-16-7291Jrlhuir encounter procedureLakeHealth Beachwood Medical Centertart: 07-09-2024 End: 14-89-2887tpypamszyaVgejpjewzProMedica Bay Park Hospital Work Phone: Start: 07-09-2024 End: 52-27-1404Wrifmhs encounter procedureCarolinas [facility] Physician GroupMagruder Memorial Hospital Work Phone: Start: 06-27-2024 End: 61-74-6099Lmaswp Emeli Muniz SHOULDER JOINER Work Phone: noms [facility] [address] ROUTEStart: 06-27-2024 End: 30-34-8890Wrxtbw flowsJus Muniz SHOULDER JOINER Work Phone: noms [address] STATE ROUTEStart: 93-24-3621Ylx-patient / Non-visitCarolinas [facility] Physician GroupPeacehealth St[facility] Work Phone: Start: 06-27-2024 End: 40-52-7555Ephxlu outpatient visit 25 Kamar Muniz SHOULDER JOINER Work Phone: noms [facility] ROUTEComment on above:PLMD (periodic limb movement disorder) (Primary Dx); CUBA (obstructive sleep apnea); Daytime hypersomnolence; Primary insomnia; SnoringStart: 06-19-2024 End: 71-57-0531Iojsbu flowsheetNatalie A Felter BROADBAND ENGINEER-REPTILE KEEPER Work Phone: noms SWS DERMStart: 06-19-2024 End: 43-66-1410Ldcmbg flowsheetNatalie Damon Felter BROADBAND ENGINEER-REPTILE KEEPER Work Phone: noms SWS DERMStart: 06-19-2024 End: 76-00-2174Ruxggd outpatient visit 15 minutesNatalie Damon Felter BROADBAND ENGINEER-REPTILE KEEPER Work Phone: noms SWS DERMComment on above:Seborrheic keratosis; Melanocytic nevus of trunk; Lentigines; Capillary angioma; Telangiectasia of face; Actinic keratosis; Seborrheic keratosis, inflamed; History of malignant melanoma of skinStart: 06-08-2024 End: 73-26-5855Cnizrp Max-WellnessThong Hogan Whiskdeloris DO Work Phone: noms OPHTStart: 06-08-2024 End: 36-59-8136Jgwpja Max-WellnessThong Hogan Flared3D Work Phone: noms OPHTStart: 06-04-2024 End: 67-94-7097gjninyswdiGijnlvpseProMedica Bay Park Hospital Work Phone: Start: 06-04-2024 End: 59-04-8465Hetmbar encounter procedureCriselda Physician Group-[facility] Work Phone: Start: 05-16-2024 End: 13-58-8361aoqxrbikjiMV [facility] Work Phone: [facility] Work Phone: Start: 05-16-2024 End: 41-63-2112Sngcpir encounter procedureDO [place] Newser Work Phone: [facility] Work Phone: Start: 83-61-3592Qzd-patient / Non-visitDO [facility] Work Phone: [facility] Work Phone: Start: 04-04-2024 End: 01-78-9962owxqikdjcsCN Augustine Newser Work Phone: [facility] Work Phone: Start: 04-04-2024 End: 10-49-2459Wirkucr encounter procedureDO Augustine Newser Work Phone: [facility] Work Phone: Start: 01-37-4431Kop-patient / Non-visitCar[facility]as [facility] Out[facility] Work Phone: Start: 80-33-6791Xtt-patient / Non-visitDO Augustine Newser Work Phone: [facility] Phys[facility] GroupPe[facility] Work Phone: Start: 41-18-8272Xso-patient / Non-visitDO Augustine Newser Work Phone: [facility]Pe[facility] Work Phone: Start: 02-27-2024 End: 12-16-0435ckitjzpkvdBA Augustine Newser Work Phone: [facility] Work Phone: Start: 02-27-2024 End: 35-51-9982Czbaeea encounter procedureDO Augustine Metz Work Phone: [facility] Work Phone: Start: 02-24-2024 End: 03-73-0419Wlrhzjyxd to same day surgery centerDO Augustine Newser Work Phone: [facility] CenterStart: 02-24-2024 End: 02-57-9068dplnmaurkeIV Augustine Newser Work Phone: [facility] Work Phone: Start: 02-16-2024 End: 85-80-9398Ghpifgw encounter procedureDO Augustine Isaías Work Phone: [facility] [facility] Work Phone: Start: 02-16-2024 End: 31-50-2468jiyjeoutwbPP Augustine Metz Work Phone: [facility] Work Phone: Start: 58-49-1532Drjegrcre for preprocedural cardiovascular examinationBenlouann Jimenez [facility] Physician GroupStart: 01-31-2024 End: 08-55-8573oluighmlnsVblysaeut [facility] Work Phone: Start: 01-31-2024 End: 34-24-8617Jjubxgr encounter procedureCar[facility] Work Phone: Start: 41-89-2106Ahl-patient / Non-visitCar[facility] Work Phone: Start: 54-63-1514Hyc-patient / Non-visitCar[facility] Work Phone: Start: 27-15-7224Rea-patient / Non-visitCar[facility] Work Phone: Start: 11-01-2023 End: 68-52-9896buochpiqodGhdfgaiw Ball Other [facility] [employer] Other Start: 43-73-9262Imksgtwxu encounterBepatience Bethea [facility] ClinicStart: 10-31-2023 End: 99-34-2602cgdafycqqwHfpudkoc Ball Other [facility] [employer] Other Start: 38-19-8474Acnfdp outpatient visit 25 minutes Augustine Bethea [facility] ClinicStart: 97-51-5460Zzzncx Trang Dodd DO Work Phone: NOAF OPHTStart: 32-31-8557Veqxqp Trang Dodd DO Work Phone: noMS ISMA OPHTStart: 07-11-2023 End: 98-53-5835ebfhyxfasaIzmuggwl Ball Other [facility] [employer] Other Start: 19-00-0573Bucpcobok encounterBenjamin BallFPG [facility] ClinicStart: 07-10-2023 End: 52-98-8447besgiehirrAaffufdn Ball Other [facility] [employer] Other Start: 65-53-7997Uoewhuljg encounterBenjamin BallFPG [facility] ClinicStart: 07-05-2023 End: 86-88-2477Jcwzkempk department patient visitBelettyjamin IsaíasFacility:[facility] HospitalStart: 34-39-4902zhqbyqovkdSRCJ [facility]ITALNACHOM[facility]3] HospitalStart: 03-16-2023 End: 46-31-9158Gvtbqi outpatient visit 15 Gene Carballo APRN-REPTILE KEEPER Work Phone: [facility]3] OrthopedicsComment on above:Hx of total knee arthroplasty, right (Primary Dx)Start: 03-16-2023 End: 82-72-5946Wnddafcaoq hospital visit by Darrell LAN Work Phone: [facility] RadiologyStart: 70-42-3769jfrqunwgyd AUGUSTINE Ramirez BALLFacility:AMBGIMHStart: 01-24-2023 End: 75-46-3315rztmtfzsyrDAHGHV H FAWWADFacility:O8Eiipz: 01-22-2023 End: 68-02-1226yzgtwgwunqTdmsgiax Ball Other [employer] Other Start: 40-12-4057Zusczkipa encounterBenjamin BallFPG [facility] ClinicStart: 2023 End: 45-38-0508gezlnjqfvzCH BENJAMIN BALLFacility:X1Osnan: 01-05-2023 End: 95-71-8888jhqvistdabYovmoqev Ball Other [employer] Other Start: 87-27-6520Ebjafx outpatient visit 25 minutes Augustine ThomasG Isaías Medical ClinicStart: 12-27-2022 End: 96-53-9034qjkcwyqbvkGLJCCF Tiburcio FAWWADFacility:I8Htzap: 11-24-2022 End: 35-62-1248wtswgxmiznLYWBTN H FAWWADFacility:C0Ppzre: 11-10-2022 End: 12-02-2323erohedpmruAyfxgise Ball Other [employer] Other Start: 96-95-5052Xrzgabnox encounterBenjamin BallFPG [facility] ClinicStart: 17-16-5196Iollekpyl encounterBenmariselamin IsaíasFPG Isaías Medical ClinicStart: 11-09-2022 End: 89-57-9319qfjbitpkmrAPZLZHUG E BALLNost. lou[facility] [employer] Other Start: 69-47-8046uqbhaoapetFHSGZANB E BALL Facility:AMBGIMHStart: 11-01-2022 End: 02-85-0127cntkaxcaorSF DOCTOR MISCFacility:A5Uxxmw: 49-37-4400yqcuooyfro AUGUSTINE Ramirez BALLFacility:AMBGIMHStart: 10-27-2022 End: 92-56-5011rmjgjujdzrAEEMKY H FAWWADFacility:A1Lvxtm: 10-26-2022 End: 56-15-6618kvawwplhomNQCNQM AIDANALUISA MDFacility:AMBGIMHStart: 10-19-2022 End: 82-78-1292ytzrdjlowvQM BENJAMIN BALLFacility:E9Inbbq: 08-48-3819Obcu [facility] Start: 10-04-2022 End: 80-74-9269ugtbhiyfxySnuouxib Ball Other [employer] Other Start: 17-79-5908Rmuuem outpatient visit 25 minutes Augustine Metz Medical ClinicStart: 21-08-2077nstcdzubuaQpMago Osman Delmis ShahFacility:9522Start: 09-27-2022 End: 41-71-9827rbensqqybkPWAJCJ H FALaureWADFacility:M6Llzyp: 46-78-1025Qccm Larson Dept. of Dermatology Start: 72-62-6010Jxb-procedure evaluation Tuanlettylouann Metz Other [place] [employer] Other Start: 88-95-5702vjurqasrclJx. Macario Bui Facility:[id number]: 08-26-2022 End: 62-68-1860mwdldpazmiNHFXQQ H FAWWADFacility:X7Mjmjl: 07-27-2022 End: 12-42-3693gkisaiqzfpYBXWQV H FAWWADFacility:Q4Aasoy: 07-13-2022 End: 46-28-2173bxqiwizifqJB BENJAMIN BALLFacility:H9Yaaij: 51-58-4584cnmdicgbbj [facility] HospitalStart: 07-08-2022 End: 32-19-8699Qpnidl outpatient visit 15 minutesPastor Bedoya MD Work Phone: [facility]3] OrthopedicsComment on above:Hx of total knee arthroplasty, right (Primary Dx)Start: 07-08-2022 End: 37-01-7247Fczemvteav hospital visit by Christine Bedoya MD Work Phone: [facility] RadiologyStart: 06-28-2022 End: 07-72-2102kqhfntrvzdWY BENJAMIN BALLFacility:F9Vexei: 06-28-2022 End: 69-85-9255euoocpidzsPWOKEK H FAWWADFacility:U2Zczjp: 06-15-2022 End: 02-47-4092lbaupruvwnNCMamta Bullockcility:M9Dajmq: 05-27-2022 End: 84-40-9413qqkasbpprgKTIKTJ H FAWWADFacility:D4Jcipi: 05-03-2022 End: 40-36-3070Dzcpkmv encounter procedurePatricdipak ALMONTE [facility] start: 04-26-2022 End: 29-10-2364majzncjtgrUIMamta METZFacility:M2Ctvns: 04-26-2022 End: 85-22-7978vfkzsxahoyWXZPSY H FAWWADFacility:J1Uwdda: 04-19-2022 End: 36-04-6354fclcjtfyolLYChepe METZFacility:H3Iudhg: 09-44-2632fkjoipjbvy CHAD [facility]ITALNACHOMon[facility]3] HospitalStart: 04-08-2022 End: 36-01-4100Uflpjz follow up visit related to original Meño Carballo APRN-REPTILE KEEPER Work Phone: [facility]3] OrthopedicsComment on above:Hx of total knee arthroplasty, right (Primary Dx)Start: 04-08-2022 End: 67-12-9704Kvnvjogleq hospital visit by Darrell LAN Work Phone: [facility] RadiologyStart: 04-07-2022 End: 09-98-8388xnkydamzgwNUChepe Bullockcility:T3Gptwc: 03-26-2022 End: 12-01-9286thdynevnqiJSDFKQ H FAWWADFacility:O7Kzgtb: 03-15-2022 End: 98-51-8935Erzydpd encounter Tres Bedoya MD Work Phone: [facility] MED SURGStart: 03-15-2022 End: 61-77-9967Zvcpnpxpcf hospital visit by Christine Bedoya MD Work Phone: [facility] MED SURGComment on above:S/P total knee arthroplasty, rightStart: 2022 End: 59-11-3999Dahwqb outpatient new 60 minutesPastor Bedoya MD Work Phone: [facility]3] OrthopedicsComment on above:Right knee pain, unspecified chronicity (Primary Dx); Pain in prosthetic joint, sequelaStart: 2022 End: 34-99-1802Xthgnqaevr hospital visit by Christine Bedoya MD Work Phone: [facility] RadiologyStart: 11-04-2021 End: 73-40-7516ollbqhghxgNxfca Hykes Other [employer] Other Start: 38-09-9279Lbkjgr outpatient visit 25 minutes Carmen HykesFPG GastroenterologyStart: 11-03-2021 End: 31-92-3327gdvgdwmhokKjwsn Hykes Other [employer] Other Start: 64-63-5601Ilhovlzrk encounterDavisameer HykesFPG GastroenterologyStart: 03-20-2020 End: 58-26-5001Tjvnqp outpatient visit 15 minutesPastor Bedoya Work Phone: [facility]3] OrthopedicsComment on above: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)Start: 03-20-2020 End: 31-40-5750Jrtlrgyqmq hospital visit by Darrell LAN Work Phone: [facility] RadiologyStart: 06-13-2019 End: 74-41-1428Uaebeco encounter procedureMOSHRIK ABD ALAMIRFacility:[facility] Procedures DateProcedureProcedure DetailPerforming ClinicianStart: 31-66-6734Ryrqqiugiaqn ophthalmic imaging retinaJomary grace Dodd DO Work Phone: Start: 07-19-2025 End: 04-31-4982Leosr medical xm&eval comprhnsv estab pt 1/>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Jose R Dodd DO Work Phone: comment on above: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 (Primary Dx); Type 2 diabetes mellitus with hyperglycemia, without long-term current use of insulin (HCC); Dry eyesStart: 58-84-1893BPYP / NAIL BIOPSYNatalie Damon Shah BROADBAND ENGINEER-REPTILE KEEPER Work Phone: Start: 70-81-4762Odlrz i surg pathology gross examination onlyNatalie Damon Shah BROADBAND ENGINEER-REPTILE KEEPER Work Phone: Start: 30-73-5711YWMZDPVWQVY SKIN LESIONNatalie Damon Shah BROADBAND ENGINEER-REPTILE KEEPER Work Phone: Start: 12-28-2024 End: 04-48-2145Nho bmtry prtl coher intrfrmtry io lens pwr calJose R Dodd DO Work Phone: Start: 50-41-1253Ezbuoagcqwbr ophthalmic imaging retinaJose R Dodd DO Work Phone: Start: 12-28-2024 End: 28-31-5640Rtqut medical xm&eval comprhnsv estab pt 1/>Age-related nuclear cataract of both eyesJose R Dodd DO Work Phone: comment on above:Age-related nuclear cataract of both eyes (Primary Dx); 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Start: 25-95-0263LLCBTCL POCT GLUCOMETERSBenjamin Laure Freitas DO Work Phone: start: 06-06-2616ND Nasal Excision CA W/Skin Graft Recon (Not Applicable)Augustine Metz DO Work Phone: Start: 28-57-5765BDFKJSS POCT GLUCOMETERSBenjamin W Zena DO Work Phone: start: 21-81-8363Rpabz metabolic panel calcium total Augustine Freitas DO Work Phone: start: 64-54-5175Gyylkmzn blood count with white cell differential, automatedBenmariselamin W Zena DO Work Phone: start: 36-05-5798HGGP SURGERYChristin Bolton MD Work Phone: Start: 66-79-2736GTKL / NAIL BIOPSYNatalialyx Shah BROADBAND ENGINEER-REPTILE KEEPER Work Phone: Start: 70-21-5048Bnmelscodqha ophthalmic imaging retinaJonattc Dodd DO Work Phone: Start: 09-07-2024 End: 81-97-9324Pgrlj medical xm&eval intermediate estab pt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Jonattc Dodd DO Work Phone: comment on above: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 (Primary Dx); Dry eyes; Age-related nuclear cataract of both eyes; Type 2 diabetes mellitus without complication, without long-term current use of insulin ([facility])Start: 06-19-2024 End: 36-00-6393XCYFKGUBHMR SKIN LESIONNatalie Damon Shah BROADBAND ENGINEER-REPTILE KEEPER Work Phone: Start: 13-56-3623Lbbwofrimqmw ophthalmic imaging retinaJonathan D Ju DO Work Phone: Start: 06-08-2024 End: 56-80-8881Kwhyj medical xm&eval comprhnsv estab pt 1/>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Jonattc Dodd DO Work Phone: comment on above: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 (Primary Dx); Age-related nuclear cataract of both eyes; Dry eyesStart: 71-92-4377Hvcopivb of lesion of cheekDO Augustine Ball Work Phone: Start: 71-99-2105Twtuiehhqohx ophthalmic imaging retinaJonathan D Ju DO Work Phone: Start: 10-28-2023 End: 23-76-2255Znllp medical xm&eval comprhnsv estab pt 1/>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Jonathan D Zahler DO Work Phone: comment on above: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 (Primary Dx); Age-related nuclear cataract of both eyes; Dry eyesStart: 10-62-8808Jhnc micrographic h/n/h/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Emma LarsonStart: 26-24-5490Yyck LarsonStart: 18-07-0449Qtuerfzb blood count with white cell differential, automatedSamanmaggi Miner Work Phone: Start: 26-49-4548Tysws function panelMihai-Cameron Ferguson MD Work Phone: Start: 44-02-6276Byenlrosxl examination knee 1/2 views Samantha Miner Work Phone: Start: 03-15-2022 End: 33-19-7163Tdlucb kne condyle&platu medial&lat compartmentsScaz Bedoya MD Work Phone: Start: 80-74-7047Muzkykmineq timeChad Virginie BROADBAND ENGINEER-[employer] Work Phone: Start: 49-53-9968Mjkygf nuc acid amp prb cult/isolate ea orgnismChad Virginie BROADBAND ENGINEER-REPTILE KEEPER Work Phone: Start: 08-18-4301Gcty-cov-2 detection by dna/rnaChad Virginie BROADBAND ENGINEER-REPTILE KEEPER Work Phone: Start: 59-89-5106Botqvpqz screen rbc each serum Brad Bedoya MD Work Phone: Start: 03-15-2022 End: 83-48-9223Qcxvzvbmqgoeke time partial plasma/whole bloodChad Virginie BROADBAND ENGINEER-REPTILE KEEPER Work Phone: Start: 67-99-3254Dwmki lithotripsyMc [place] Start: 85-69-8390Mumwkgzmybh removal of ureteric stent Mc [place] Start: 11-86-2865Kbcpwabrgo retrograde cholangiopancreatographyPaoc [place] CholecystectomyPaoc [place] ColonoscopyPaselect specialty hospitaldipak [place] Depression screeningBenjamin Ball Other Total knee replacementPasalem regional [facility] [place] Plan of Treatment DateCare ActivityDetailAuthorStart: 01-02-2026 End: 46-96-1192Gtiserd encounter dyirhfflk82/09/2026 8:45 AM EDT Office Visit [facility] [address] [place] [address] Meaghan Torres MD [address] [place], [place] [id number] [facility]ermatologyStart: 08-19-2025 End: 28-00-1194Ecxlnhl encounter ymrloafgy95/24/2025 8:30 AM EST Office Visit [facility] [address] [place] [address] Meaghan Torres MD [address] [place] [address] [facility] DermatologyStart: 07-19-2025 End: 98-88-4857Atxspce encounter procedureN[facility] EyeComment on above:ArrivedStart: 07-04-2025 End: 05-03-9850Ujnoubd encounter procedureNOMS SWS DERMComment on above:Arrived Start: 92-18-4671Omjkcjsjz vaccinationInfluenza Vaccine (#1)[facility] Start: 02-26-2025 End: 86-34-6389Jpggrni encounter smazpuujg10/03/2025 10:15 AM EDT Office Visit [facility] [address] [place] [id number] Jose R Dodd, DO [address] [place] [address] [facility] NB OPHTStart: 01-03-2025 End: 03-93-8346Kxjllat encounter procedureNOMS SWS DERMComment on above:Arrived Start: 01-01-2025 End: 35-83-5622Qdfanjt encounter procedureNOMS ENT SANDUSKYComment on above: ArrivedStart: 12-28-2024 End: 44-67-3036Wshomrv encounter procedureNOMS NB OPHTComment on above:Arrived Start: 10-30-2024 End: 20-28-6558Rojeejl encounter procedureNOMS ENT SANDUSKYComment on above: ArrivedStart: 10-22-2024 End: 46-54-3036ZvvtjjatnLakeHealth Beachwood Medical Centertart: 10-17-2024 End: 45-33-3016Cabgzkb encounter procedureNOMS ENT SANDUSKYComment on above: ArrivedStart: 10-04-2024 End: 64-95-0910Utevezi encounter procedureNOMS SWS DERMComment on above:Arrived Start: 10-03-2024 End: 57-10-1038Frpzpob encounter procedureNOMS [facility] STATE ROUTEComment on above:ArrivedStart: 09-07-2024 End: 81-60-2057Diaoifk encounter procedureNOMS NB OPHTComment on above:Arrived Start: 07-11-2024 End: 95-32-0745Ozxqvxe encounter zhxticmju07/16/2024 9:40 AM EDT Office Visit [facility] [address] [place] [address] Osman Shah, BROADBAND ENGINEER-REPTILE KEEPER [address] [place] [address] [facility] SWS DERMStart: 06-27-2024 End: 67-68-8141Lpeyjgu encounter bhppeubmr35/02/2024 9:00 AM EDT Office Visit [facility] [address] [place] [phone] Simran Muniz, ABILIO [address] [place] [address] ArrivedNOST. FRANCIS MED[facility]ENTERUE [facility] ROUTEComment on above: ArrivedStart: 06-19-2024 End: 99-05-8759Dzesqhc encounter goqgpwfoa12/24/2024 9:25 AM EDT Office Visit [facility] [address] [place] [address] Osman Shah, BROADBAND ENGINEER-REPTILE KEEPER [address] [place] [address] ArrivedNOCHAPMAN [facility] DERMComment on above: ArrivedStart: 06-08-2024 End: 42-64-9755Nttlwui encounter mqxepltpw08/13/2024 10:30 AM EDT Office Visit [facility] [address] [place] [address] Jose R Dodd DO [address] [place], [place] [id number] ArrivedASHLEY [facility] OPHTComment on above:ArrivedStart: 84-56-3553Wjnxfjokj vaccinationInfluenza Vaccine (#1)[facility] HealthcareStart: 02-24-2024 End: 61-15-3878RzthpkvjoLakeHealth Beachwood Medical Centertart: 01-10-2024 End: 11-94-1920Uplkwes encounter crtxtgaqm86/16/2024 9:35 AM EDT Office Visit [facility] [address] [place] [address] Osman Shah, BROADBAND ENGINEER-REPTILE KEEPER [address] [place] [address] [facility] SWS DERMStart: 10-28-2023 End: 47-58-9078Olfwvtt encounter /02/2024 9:30 AM EST Procedure Visit [facility] [address] [place] [phone] Jose R Dodd, DO [address] [place] [address] ArrivedNOMS ASHBY OPHTComment on above:ArrivedStart: 45-61-3432Pvdwcofwk vaccinationInfluenza Vaccine (#1)[facility] HealthcareStart: 03-16-2023 End: 44-02-3685Amrdefp encounter mahvfadvb22/21/2023 Office Visit Orthopaedics Azul Carballo, BROADBAND ENGINEER-REPTILE KEEPER [address] [place] [address] [facility]3] OrthopedicsStart: 19-16-9007CFHXV-19 VACCINE (6 - Pfizer series)COVID-19 VACCINE (6 - Pfizer series)[facility] Centertart: 68-87-3195Aichoinias A1c jkbceneddncIMY9W TESTMercy Health Springfield Regional Medical Centertart: 07-08-2022 End: 60-36-4485Fxzyail encounter dufczeicd58/13/2022 Office Visit Orthopaedics Pastor Bedoya MD [address] [place] [address] [facility])[3] OrthopedicsStart: 84-85-6593Zlkmjlwtm vaccinationMercy Health Springfield Regional Medical Centertart: 04-08-2022 End: 01-96-2435Dvkcopv encounter icbwmaoqw39/14/2022 Office Visit Orthopaedics Azul Carballo, BROADBAND ENGINEER-REPTILE KEEPER [address] [place] [address] [facility])[3] OrthopedicsStart: 02-18-2022 End: 94-05-2876yqwjgrjcpb68/26/2022 Pre-Operative Nurse Assessment [facility]Mon[facility]3] Pre AdmissionStart: 43-85-8672Fhtcautgq vaccination INFLUENZA VACCINE (Season Ended)[facility]Start: 04-27-8121Ajetlrqecwfu vaccinationPNEUMOCOCCAL VACCINE SERIES (2 - PCV)[facility] SystemStart: 47-65-3665Jcjfzvvjugyf Vaccine: 65+ Years (2 - PCV)Pneumococcal Vaccine: 65+ Years (2 - PCV)[facility] HealthcareStart: 92-68-2881Jeemynurmqyf Vaccine: 65+ Years (2 of 2 - PCV)Pneumococcal Vaccine: 65+ Years (2 of 2 - PCV)[facility] Start: 26-71-2638Xwxovfaax aortic aneurysm screeningABDOMINAL AORTIC ANEURYSM HIGH RISK SCREENCLEVELAND CLINIC EUCLID HOSPITALStart: 86-62-4631Fdebycczgisw vaccinationMercy Health [facility] Medical Centertart: 59-98-4176BjgqmgiwofmMUSCZXKIIV CANCER SCREENING DISCUSSION [facility]Start: 23-39-1732Pxdpljik specific antigen measurementPROSTATE CANCER SCREENING DISCUSSIONCLEVELAND CLINIC [facility] HOSPITALStart: 50-08-4074Shyeyj vaccine hzv live for subcutaneous useZOSTER (SHINGLES) VACCINE (1 of 2)[facility] Centertart: 96-47-6070WqubacvnizmPGLWLSHPQI CANCER SCREENING DISCUSSIONTrihealth Bethesda North Hospital Start: 74-94-9981Wjureyjaz for malignant neoplasm of colonCOLORECTAL CANCER SCREENING DISCUSSIONMercy Health [facility] Medical Centertart: 64-24-1774Aiobfvd lipid profile LIPID SCREENINGCLEVELAND CLINIC [facility]CL[facility] HOSPITALStart: 27-07-0022Aounz diphtheria, tetanus and acellular pertussis (DTaP) vaccinationTDAP (ADULT)[facility] Centertart: 67-40-0625Jpvgzis vaccinationTETANUSAOhio Valley Surgical Hospitaltart: 88-83-9225VFGLP-19 VACCINE (#1)COVID-19 VACCINE (#1)[facility] Centertart: 42-20-5909UAHQW-19 VACCINE (#1)COVID-19 VACCINE (#1)[facility] Centertart: 32-25-3581Sltmiuqw foot examinationDIABETIC FOOT EXAMMercy Health Springfield Regional Medical Centertart: 51-91-8989Ikcadvey retinal eye examEYE EXAMMercy Health Springfield Regional Medical Centertart: 24-86-0220Emybygtl screening EYE EXAMMercy Health Springfield Regional Medical Centertart: 51-56-6627Eomlwrakb B vaccinationHEP B VACCINE (1 of 3 - 3-dose series)[facility] Centertart: 12-63-1710Crsolucwr C antibody, confirmatory testHEPATITIS C VIRUS SCREENINGMercy Health [facility] Medical Centertart: 43-41-4212Tqhfadxtr C screeningHEPATITIS C VIRUS SCREENINGTrihealth Bethes[facility] North Hospital Start: 25-45-1965Dsayi panelLIPIDSWhite Hospital SystemStart: 09-15-6596CVHGMZ LIPIDSMercy Health Springfield Regional Medical Centertart: 90-92-0073Zeurxcdocesm measurement, urine, quantitativeURINE MICROALBUMIN TESTMercy Health [facility] Regional Medical Centertart: 20-14-5017Npenvbsgp [Moles/Vol]POTASSIUMCLEVELAND CLINIC EUCLID HOSPITALStart: 23-00-2782Nznswag vaccinationTETANUS [facility] SystemStart: 47-76-3787Hxwlp screening for proteinURINE MICROALBUMIN TESTTrihealth Bethesda North HospitalDermatopathology examDermatopathology exam Pathology and Cytology Timed Neoplasm of unspecified behavior of bone, soft ti ssue, and skin Release Upon Ordering for 1 Occurrences starting 10/04/2024[facility] [employer] Work Phone: comment on above:Release Upon Ordering for 1 Occurrences starting 10/04/2024Dermatopathology examDermatopathology exam Pathology and Cytology Timed Neoplasm of unspecified behavior of bone, soft ti ssue, and skin Release Upon Ordering for 1 Occurrences starting 07/04/2025[facility] Healthcare Work Phone: comment on above:Release Upon Ordering for 1 Occurrences starting 07/04/2025Patient EducationKnow your [facility] Work Phone: [facility] referralK[facility] Work Phone: Radiography for bone length studiesXR BONE LENGTH STUDY Imaging Routine Hx of total knee arthroplasty, right 07/08/2022 11:01 AM [employer] Work Phone: SURGICAL PATHOLOGY REQUESTSURGICAL PATHOLOGY REQUEST Surg Path Routine Osteoarthritis of right knee, unspecified osteoarthritis type Release Upon Ordering for 1 Occurrences starting 03/15/2022[employer] Work Phone: Comment on above:Release Upon Ordering for 1 Occurrences starting 03/15/2022X-ray of left kneeXR KNEE LEFT 3 VIEWS Imaging Routine History of revision of total replacement of left knee joint 03/20/2020 10:48 AM Lexpert[employer].comXR Knee - left 3 ViewsXR KNEE LEFT 3 VIEWS Imaging Routine Pain in prosthetic joint, sequela 2022 1:09 PM [facility]XR K[facility] - right 3 ViewsXR KNEE RIGHT 3 VIEWS Imaging Routine Hx of total knee arthroplasty, right 04/08/2022 10:04 AM [facility] SystemXR Knee - right 3 ViewsXR KNEE RIGHT 3 VIEWS Imaging Routine Hx of total knee arthroplasty, right 07/08/2022 11:01 AM [facility] SystemXR Knee - right 3 ViewsXR KNEE RIGHT 3 VIEWS Imaging Routine Hx of total knee arthroplasty, right 03/16/2023 11:03 AM [facility] SystemXR Knee - right 4 ViewsXR KNEE RIGHT 4+ VIEWS Imaging Routine Right knee pain, unspecified chronicity 2022 12:51 [facility] Immunizations Immunization DateImmunizationNotesCare ImfltllyDwvktwbc98-70-7539ssdgauiqf, high dose seasonal, preservative-freeBenjamin Ball DO Work Phone: [facility]11-26-2024COVID-19 (PFIZER) 12Y and olderBenjamin Ball DO Work Phone: [facility]10-14-2024influenza, high dose seasonal, preservative-freeThe [facility]10-14-2024 influenza virus vaccine, unspecified formulationNatalie Alyssa BROADBAND ENGINEER-REPTILE KEEPER Work Phone: [facility] HospitalVocvncxuqm01-43-4306VUZYP-07 (PFIZER) 12Y and olderDO Augustine Ball Work Phone: [facility]10-13-2023influenza virus vaccine, unspecified formulationThe [facility] 86-33-4069zphywdmsq, high dose seasonal, preservative-freeBenjamin Ball Other [place] [employer] Other [id number]-63 (PFIZER) 12Y and olderDO Augustine Ball Work Phone: [facility]06-08-2023zoster vaccine recombinantJimnlouann Metz Other [facility]04-08-2023zoster vaccine recombinantBenlouann Metz Other [facility]10-04-2022influenza, high dose seasonal, preservative-freeBepatience Isaías Other [employer] Other [id number] virus vaccine, split virus (incl. purified surface antigen)Augustine Metz Other [place] [employer] Other [id number], Seasonal, Quadrivalent, AdjuvantedJonathan Zahler DO Work Phone: [facility]viirMercy Hospital JoplinWqpqaqrbih21-62-8855xbxprxstz virus vaccine, unspecified formulationJonathan Zahler DO Work Phone: [facility]09-27-2022COVID-19 Pfizer (bivalent)Augustine Metz Other [facility]07-23-2022COVID-19 Comirnaty (Pfizer) Tri-Sucrose 12+DO Augustine Metz Work Phone: [facility]10-20-2021influenza virus vaccine, split virus (incl. purified surface antigen)Augustine Isaías Other [employer] Other [id number] virus vaccine, unspecified formulationThe [facility]10-20-2021Seasonal trivalent influenza vaccine, adjuvanted, preservative freeJonathan Zahler DO Work Phone: AviirMercy Hospital JoplinNsxjkxkbdi81-24-3364MTMOV-89 Vaccine Pfizer - Documentation Purposes OnlyAugustine Metz Other [facility]02-25-2021COVID-19 Vaccine Pfizer - Documentation Purposes OnlyAugustine Metz Other [facility]02-04-2021COVID-19 Vaccine Pfizer - Documentation Purposes OnlyAugustine Metz Other [facility]10-14-2020influenza, high dose seasonal, preservative-freeJonathan Zahler DO Work Phone: noMercy Hospital JoplinAkgbtsxura83-96-0634deidsagoc virus vaccine, split virus (incl. purified surface antigen)Augustine Metz Other [employer] Other 10701714-11-7776kfzptzaiq virus vaccine, unspecified formulationThe [facility]10-11-2019influenza virus vaccine, split virus (incl. purified surface antigen)Augustine Metz Other [employer] Other 10987131-65-1415ufwlublvq virus vaccine, unspecified formulationThe [facility]10-17-2018influenza virus vaccine, split virus (incl. purified surface antigen)Augustine Metz Other [employer] Other 10004046-86-6783mixbkuznz virus vaccine, unspecified formulationThe [facility]10-17-2018Seasonal trivalent influenza vaccine, adjuvanted, preservative freeJonathan Zahler DO Work Phone: noMercy Hospital JoplinXrnskrmxnn84-51-0111xxuznqbvw virus vaccine, split virus (incl. purified surface antigen)Augustine Metz Other [employer] Other 10623927-64-6798jnybwberg virus vaccine, unspecified formulationThe [facility]10-30-2017influenza, high dose seasonal, preservative-freeJonathan Zahler DO Work Phone: noMercy Hospital JoplinAsspkklnpm58-13-8385yecjpbude virus vaccine, split virus (incl. purified surface antigen)Augustine Metz Other [employer] Other 10912592-81-6477qfrqfxxin virus vaccine, unspecified formulationThe [facility]10-12-2016influenza, high dose seasonal, preservative-freeJonathan Zahler DO Work Phone: [facility] HospitalKvekkxltub07-41-2972qffmdytdderp conjugate vaccine, 13 valentBenlouann Metz Other [facility]09-16-2015influenza virus vaccine, split virus (incl. purified surface antigen)Augustine Metz Other [place] [employer] Other 09096619-88-9994wsjybzzxh virus vaccine, unspecified formulationThe [facility]09-01-2015influenza, injectable, madin emilee canine kidney, preservative freeJonathan Zahler DO Work Phone: [facility] HospitalIljoakfenh92-61-1695fiuoikb and diphtheria toxoids, adsorbed, preservative free, for adult use (5 Lf of tetanus toxoid and 2 Lf of diphtheria toxoid)Augustine Metz Other [facility]04-01-2014 pneumococcal polysaccharide vaccine, 23 valentJonathan Zahler DO Work Phone: [facility] HospitalEhusyboyuo65-06-6523sihvzvkcmdgv polysaccharide vaccine, 23 valentBenlouann Metz Other [facility]10-31-2013tetanus and diphtheria toxoids, adsorbed, preservative free, for adult use (5 Lf of tetanus toxoid and 2 Lf of diphtheria toxoid)Augustine Metz Other [facility]10-23-2013zoster vaccine, liveBenjayaw Isaías Other [facility]1946 pneumococcal conjugate vaccine, 7 valentEmma LarsonDept. of Dermatology Payers DatePayer CategoryPayerPolicy [id number]-off [id number] InsuranceMEDICAL MUTUAL [id number] MUTUAL MMO TRADITIONAL [id number] 2011MedicareMEDICARE MEDICARE A AND B [id number] 2010-Present [place], [id number] 1.2.840.507905.1.13.172.2.7.3.424039.315 2009Medicare 1.2.840.459569.1.13.172.2.7.3.608199.20314-76-9936Mxjgxbb 1.2.840.867727.1.13.172.2.7.3.918558.315 [id number] ..9.62552[id number] ..1.390086.3.579.2.81672-04-3552Zytsksi010485767 ..1.186258.3.579.2.29850-69-7198Zyvpgqk372316651 ..1.313350.3.579.2.52770-24-5356Pncogcl07796553 2.16840.1.377104.3.579.2.18659-22-1564Xdhwkxu59159583 2.16840.1.587542.3.579.2.15647-91-9823Deagwvs37639460 2.16840.1.232232.3.579.2.59149-35-6532Lfejkyb34709979 2.16840.1.088169.3.579.2.36484-93-2176Yrgnnvw29472178 2.16840.1.118163.3.579.2.74231-35-4838Rmhazdc0727674 2.840.1.866880.3.579.2.30425-16-3015Yyredss3964169 2.840.1.516441.3.579.2.86323-97-1933Ejwvslc5073337 2.16840.1.680671.3.579.2.72585-36-8900Socemjo0323777 2.16840.1.753886.3.579.2.48071-29-4941Cegtuow2846254 2.16840.1.382654.3.579.2.42655-90-7024Jmcrarx3036051 2.840.1.939338.3.579.2.53103-14-4041Lyhflzi2494780 2.16840.1.679574.3.579.2.05696-36-3577Ekgvjts1527797 2.16840.1.877209.3.579.2.51194-11-5887Dstquuy6240256 2.16840.1.886123.3.579.2.26106-46-9695Fseilfz6398963 2.16840.1.273407.3.579.2.55086-24-2231Fwwzvxe7138752 2.16840.1.025199.3.579.2.18731-87-0438Xcmppvc8734140 2.16840.1.874344.3.579.2.58739-87-1551Aiftvkb2225107 2.16840.1.722749.3.579.2.69653-82-5333Tnpgckx5183938 2.16840.1.895128.3.579.2.31530-18-6845Owufqzc0804404 2.16840.1.341350.3.579.2.10831-50-9955Dkzjlcf7579690 2.840.1.795120.3.579.2.88492-07-0486Oodkbcm3296396 2.840.1.207274.3.579.2.91979-31-0090Aqansxn5242788 2.16840.1.295440.3.579.2.37147-00-9804Nbqocsx0281181 2.840.1.138535.3.579.2.18917-58-4433Oryannr1538085 2.840.1.877615.3.579.2.72942-65-9802Jmuifwv83408580 2.16840.1.194621.3.579.2.12774-87-1843Ipipxvs80291233 2.16840.1.100152.3.579.2.94860-64-0165Ejpllqe37074467 2.16840.1.047161.3.579.2.27971-76-1638Bvswxxm41088738 2.840.1.391334.3.579.2.73512-55-3617Cfoqynf80732703 2.16840.1.870193.3.579.2.41320-80-7532Sshwtqk89117767 2.16840.1.293861.3.579.2.16378-09-7945Jcfwnvy44780355 2.16840.1.425909.3.579.2.62352-21-9293Rtixzjc45910562 2.16840.1.589394.3.579.2.842867-76-3511Nglfdoq14490328 2.16840.1.120622.3.579.2.913220-35-1126Uzmlyst2125838 2.840.1.569868.3.579.2.410417-13-6104Ppomvam1363527 2.0.1.110962.3.579.2.859460-67-9581Frmvjpg9123247 2.840.1.727672.3.579.2.296695-06-3713Rvolyvy6056348 2.840.1.081002.3.579.2.370243-43-3822Yfxmdlx2454162 2.840.1.013658.3.579.2.258564-39-2266Uizicvz7431843 2.840.1.351301.3.579.2.297846-45-5122Hecykpt4139827 2.16840.1.538065.3.579.2.561827-38-1699Fzurzeh9690491 2.16840.1.884909.3.57[id number] 2.16840.1.962864.3.57[id number] 2.16840.1.042[id number] Hospital [id number] 2.16.840.1.8[id number] 2.840.1.229389.3.579.2.531 [id number] 2.840.1.58[id number] 2.0.1.694007.3.579.2.531 Social History DateTypeDetailFacilityStart: 03-20-2020 End: 39-64-1301Wofzekk smoking status NHISFormer [facility]okerK[facility] End: 32-07-3243Hqqqaee of tobacco useCurrent smokerKENT HOSPITAL HEALTHStart: 03-20-2020 End: 92-24-3814Jgmkutf use and exposureFormer userCLEVELAND CLIN[facility] End: 09-33-6840Evvhmji of tobacco useUser of smokeless tobaccoKENT HOSPITAL HEALTHStart: 03-20-2020 End: 93-50-7636Tromskr intakeCurrent non-drinker of alcohol (finding)[facility] HEALTHStart: 88-90-8658Sqt Assigned At BirthNot on fileAVITA HEALTHStart: 03-05-2022 End: 55-10-8443Mlvxbqzj to SARS-CoV-2 (event)Not sureWesterly Hospital Health SystemStart: 03-16-2023 End: 51-96-0772Htq Assigned At BirthYork WeSpeke Other Start: 05-03-2022 End: 89-49-1957Jnjgbfc smoking statusNever smoked tobacco (finding)[facility] End: 45-24-7841Sgntdkc of tobacco useCigarette SmokerWesterly Hospital Health SystemStart: 58-43-5602Cjle. of Dermatology Start: 93-25-2845Kgw Assigned At [facility] Hospitaltart: 03-16-2023 End: 79-92-0443Icjqspm of Social functionTrihealth Bethesda North HospitalGender identity Identifies as male gender (finding)[facility] SystemStart: 08-29-2023 End: 09-35-5747Ydylcul intakeLifetime non-drinker (finding)[facility] HealthcareStart: 86-91-1924Elzahws Commentcaffeine: sodaNOGA HealthcareStart: 10-10-2024 End: 32-49-1098UznPzdt (finding)[facility] Centertart: 72-04-7256TyxVmurQIBQ Healthcare Medical Equipment Procedure CodeEquipment CodeEquipment Original TextEquipment IdentifierDates Attune Tibial Insert Fixed Bearing Posterior [id number]: 65-04-7977Dctip Sugar Diagnostic (Accu-Chek Prachi Plus Test Strp) stripStart: 18-86-3370Sbdcb Sugar Diagnostic (Accu-Chek [employer]achi Plus Test Strp) stripStart: 12-16-2023 End: 97-16-6989Qkdcp Sugar Diagnostic (Accu-Chek Prachi Plus Test Strp) strip Start: 12-16-2023 End: 57-72-9017Raqxm Sugar Diagnostic (Accu-Chek Prachi Plus Test Strp) strip Start: 20-18-7638Sqmsr Sugar Diagnostic (Accu-Chek Prachi Plus Test Strp) strip Start: 12-16-2023 End: 86-91-7904Cweal Sugar Diagnostic (Accu-Chek Prachi Plus Test Strp) strip Start: 12-16-2023 End: 16-66-6050Dkbck Sugar Diagnostic (Accu-Chek Prachi Plus Test Strp) strip Start: 01-13-3959Prkkm Sugar Diagnostic (Accu-Chek Prachi Plus Test Strp) strip Start: 12-16-2023 End: 62-44-5512Tssdl Sugar Diagnostic (Accu-Chek Prachi Plus Test Strp) strip Start: 12-16-2023 End: 69-68-3113Zgmmz Sugar Diagnostic (Accu-Chek Prachi Plus Test Strp) strip Start: 93-78-0646Nlutc Sugar Diagnostic (Accu-Chek Prachi Plus Test Strp) strip Start: 12-16-2023 End: 34-20-5188Pbmkl Sugar Diagnostic (Accu-Chek Prachi Plus Test Strp) strip Start: 12-16-2023 End: 94-12-0477Hwhsi Sugar Diagnostic (Accu-Chek Prachi Plus Test Strp) strip Start: 38-71-4186Hzdel Sugar Diagnostic (Accu-Chek Prachi Plus Test Strp) strip Start: 12-16-2023 End: 47-75-2895Uninx Sugar Diagnostic (Accu-Chek Prachi Plus Test Strp) strip Start: 12-16-2023 End: 04-79-3293Cwigb Sugar Diagnostic (Accu-Chek Prachi Plus Test Strp) strip Start: 66-93-4828Bklwb Sugar Diagnostic (Accu-Chek Prachi Plus Test Strp) strip Start: 12-16-2023 End: 05-25-3463Iobiv Sugar Diagnostic (Accu-Chek Prachi Plus Test Strp) strip Start: 12-16-2023 End: 38-16-2999Juslj Sugar Diagnostic (Accu-Chek Prachi Plus Test Strp) strip Start: 39-30-5702Jevff Sugar Diagnostic (Accu-Chek Prachi Plus Test Strp) strip Start: 12-16-2023 End: 14-54-9421Lbvqz Sugar Diagnostic (Accu-Chek Prachi Plus Test Strp) strip Start: 12-16-2023 End: 30-51-2691Vwmea Sugar Diagnostic (Accu-Chek Prachi Plus Test Strp) strip Start: 05-48-7179Jvcne Sugar Diagnostic (Accu-Chek Prachi Plus Test Strp) strip Start: 12-16-2023 End: 61-87-4463Cdhkf Sugar Diagnostic (Accu-Chek Prachi Plus Test Strp) strip Start: 12-16-2023 End: 53-14-6741Irexy Sugar Diagnostic (Accu-Chek Prachi Plus Test Strp) strip Start: 54-32-2862Ikwnb Sugar Diagnostic (Accu-Chek Prachi Plus Test Strp) strip Start: 12-16-2023 End: 57-79-5964Knnob Sugar Diagnostic (Accu-Chek Prachi Plus Test Strp) strip Start: 12-16-2023 End: 44-28-1673Bcvnu Sugar Diagnostic (Accu-Chek Prachi Plus Test Strp) strip Start: 80-24-5518Basgc Sugar Diagnostic (Accu-Chek Prachi Plus Test Strp) strip Start: 12-16-2023 End: 57-59-3410Mfemo Sugar Diagnostic (Accu-Chek Prachi Plus Test Strp) strip Start: 12-16-2023 End: 63-54-1093Ovnah Sugar Diagnostic (Accu-Chek Prachi Plus Test Strp) strip Start: 29-19-2287Jnhiw Sugar Diagnostic (Accu-Chek Prachi Plus Test Strp) strip Start: 12-16-2023 End: 08-50-8015Lvsvd Sugar Diagnostic (Accu-Chek Prachi Plus Test Strp) strip Start: 12-16-2023 End: 46-36-4790Dpwop Sugar Diagnostic (Accu-Chek Prachi Plus Test Strp) strip Start: 32-61-2110Arndu Sugar Diagnostic (Accu-Chek Prachi Plus Test Strp) strip Start: 12-16-2023 End: 15-83-8658Swalw Sugar Diagnostic (Accu-Chek Prachi Plus Test Strp) strip Start: 12-16-2023 End: 07-14-8792Imzup Sugar Diagnostic (Accu-Chek Prachi Plus Test Strp) strip Start: 37-00-4506Cqked Sugar Diagnostic (Accu-Chek Prachi Plus Test Strp) strip Start: 12-16-2023 End: 22-70-5823Jcaqu Sugar Diagnostic (Accu-Chek Prachi Plus Test Strp) strip Start: 12-19-2023 End: 50-06-1202Oovns Sugar Diagnostic (Accu-Chek Rpachi Plus Test Strp) strip Start: 02-02-2025 End: 46-09-6704Lutws Sugar Diagnostic (Accu-Chek Prachi Plus Test Strp) strip Start: 12-16-2023 End: 57-76-7081Ijqvk Sugar Diagnostic (Accu-Chek Prachi Plus Test Strp) strip Start: 77-62-2398Npmyt Sugar Diagnostic (Accu-Chek Prachi Plus Test Strp) strip Start: 12-16-2023 End: 09-15-1534Tiknh Sugar Diagnostic (Accu-Chek Prachi Plus Test Strp) strip Start: 12-19-2023 End: 98-60-8291Bbizp Sugar Diagnostic (Accu-Chek Prachi Plus Test Strp) strip Start: 02-02-2025 End: 32-68-6750Elxru Sugar Diagnostic (Accu-Chek Prachi Plus Test Strp) strip Start: 12-16-2023 End: 12-16-2023 Goals DatePatient GoalDesired Activity/State Functional Status EjeuPyctfxpldwDqnrfyHhfqonvi98-35-6896Eiohvzgfzq StatusN/AExecutive Urology of [facility] Clinical Notes 11-04-2021 to 07-19-2025 Note Date & XitcRavxHamerkmj27-72-3033 NoteRight Eye Quality was good. Scan locations included subfoveal. Progression has been stable. Findings include abnormal foveal contour. Left Eye Quality was borderline. Scan locations included subfoveal. Progression has been stable. Findings include abnormal foveal contour. Notes Macular volume loss w/ retinal pigment epithelium (RPE) changes c/w drusen left eye (OS). Subfoveal changes right eye (OD) - no fluid seen on exam.[facility] HospitalVauhlecffj68-38-6972 History of Present illness Narrative* Jose R Dodd, DO - 07/19/2025 9:00 AM EDT Images from the original note were not included. 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 Posterior Capsular Opacity both eyes (OU): - PCO OU: (Posterior Capsule Opacification) Can be observed without intervention if PCO is not visually significant. Nd:YAG laser capsulotomy may be considered if impairment of vision rises to a level that dose not meet the patient's functional needs or interferes with activities of daily living. Risks, benefits and alternatives to the procedure will be reviewed. If the patient has undergone Nd:YAG laser capsulotomy, they are to notify their distribution tech promptly if they have a significant change in symptoms, such as flashes of light (photopsia), an increase in floaters, loss of visual field or decrease in visual acuity. Dry eyes - Dry Eyes OU -- Environmental changes to minimize dryness and exposure and the use of artificial tears were recommended. documented in this encounterSac-Osage HospitalPgaqafvytt18-20-8963 History of Present illness Narrative* Osman Shah APRN-REPTILE KEEPER - 07/04/2025 9:10 AM EDT Images from [...] performed by Macario Bui MD Location: Right sabianism Established patient Patient denies loss of appetite, [...] HISTORY OF MALIGNANT MELANOMA OF SKIN Right Muslim No evidence of recurrence at melanoma scar. [...] 6 months skin exam documented in this encounterSac-Osage HospitalUiwrsqbrds52-01-0800 NoteCardiovascular Medicine [facility] SUBJECTIVE Chief Complaint Patient presents with Follow-up [...] fever. PMHx of paroxysmal a.fib s/p CV'n 2018, [...] well. He will be going down to [place] for a couple weeks soon and then [...] heartbeat, near-syncope, orth (more content not included)... [facility]04-18-2025 NoteUT Cardiology - [facility] Subjective Tito Goncalves is [...] In April 2019 he presented to the [facility] with atrial fibrillation with controlled [...] rales. Chest: Chest wal (more content not included)...[facility] 01-09-2025 Evaluation note* Diagnosis Onset Date Resolution Status Admit Date Anemia acuteApril 2024 9:37amAtrial fibrillationacuteApril 2024 9:37am Chronic kidney diseaseacuteApril 2024 9:37amDiabetes mellitus with diabetic polyneuropathyacuteApril 2024 9:37amGERD (gastroesophageal reflux disease)acuteApril 2024 9:37amHypertensionacuteApril 2024 9:37am ObesityacuteApril 2024 9:37amOSA (obstructive sleep apnea)acuteApril 2024 9:37amType 2 diabetes mellitus with hyperglycemiaacuteApril 2024 9:37amAnemiaacuteMay 2024 11:29amAtrial fibrillationacuteMay 2024 11:29amChronic kidney diseaseacuteMay 2024 11:29amDiabetes mellitus with diabetic polyneuropathyacuteMay 2024 11:29amGERD (gastroesophageal reflux disease)acuteMay 2024 11:29amHypertensionacuteMay 2024 11:29am ObesityacuteMay 2024 11:29amOSA (obstructive sleep apnea)acuteMay 2024 11:29amPrerenal azotemiaacuteMay 2024 11:29amType 2 diabetes mellitus with hyperglycemiaacuteMay 2024 11:29amAnemiaacuteJuly 2024 10:09am Atrial fibrillationacuteJuly 2024 10:09amChronic kidney diseaseacuteJuly 2024 10:09amDiabetes mellitus with diabetic polyneuropathyacuteJuly 2024 10:09amGERD (gastroesophageal reflux disease)acuteJuly 2024 10:09am HypertensionacuteJuly 2024 10:09amHypothyroidism due to amiodaroneacuteJuly 2024 10:09amObesityacuteJuly 2024 10:09amOSA (obstructive sleep apnea)acuteJuly 2024 10:09amType 2 diabetes mellitus with hyperglycemia acuteJuly 2024 10:09am [facility] Work Phone: 1(582) 330-813304-10-2025 History of Present illness Narrative* Osman Shah, DEQUAN-REPTILE KEEPER - 01/03/2025 9:20 AM EDT Images from [...] performed by Macario Bui MD Location: Right sabianism Established patient Patient denies loss of appetite, [...] History of malignant melanoma of skin Right Muslim No evidence of recurrence at melanoma scar. [...] limited to risks of scarring, darker or chocolate finisher pigmentary changes, recurrence, incomplete removal and infection. [...] 6 months skin exam documented in this encounterSac-Osage [id number] NoteRight Eye Quality was poor. Scan locations included subfoveal. Progression has been stable. Findings include abnormal foveal contour. Left Eye Quality was good. Scan locations included subfoveal. Progression has been stable. Findings include abnormal foveal contour. Notes Macular volume loss both eyes (OU).[facility] HospitalAdrlrajaza34-34-3518 History of Present illness Narrative* Jose R [...] Medications (Ophthalmic Agents) Medication Sig Dispense Refill Prmgmccamdb-Brmsffau-Aktjpwnev 1-0.5-0.075 % solution Administer 1 drop into [...] Daily gabapentin (Neurontin) 300 MG capsule HYDROcodone-acetaminophen ([place]) 7.5-325 MG tablet levETIRAcetam (Keppra) 500 MG [...] 09/06/2023 Glycosuria 02/15/2024 Glycosuria 09/06/2023 HTN (hypertension) ([facility]) Hypercholesteremia ([facility]/HCC) Hyperlipidemia ([facility]/HCC) Hypertension ([facility]/HCC) Hypertensive disorder ([facility]) 06/10/2014 Macular degeneration Malignant neoplasm of skin 10/17/2012 Melanoma ([facility]) Melanoma in situ of face ([facility]) 02/15/2024 Mitral valve disorder 09/17/2013 MILD (ECHO 8) Obstructive sleep apnea syndrome 09/17/2013 Paroxysmal atrial fibrillation ([facility]) 09/17/2013 PAF; CHADS2 SCORE 2 (HTN, DM). ON COUMADIN. 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 Intraocular lens (IOL) [...] decreased vision or metamorphopsia. documented in this encounterSac-Osage [id number] History of Present illness Narrative* Augustine Freitas [...] patient back as needed documented in this encounterSac-Osage [id number] History of Present illness Narrative* Augustine Freitas [...] patient back as needed [facility] History of Present illness Narrative* Augustine [...] given wound instructions. He is leaving for [place] for the remainder of the winter. I willsee him on a returns in December [facility] History of Present illness Narrative* Augustine [...] pain 07/11/2024 COVID-19 vaccine administered x 2 ([employer]) Diabetes (CMS/HCC) Diverticulosis of colon 10/17/2012 Family history of malignant neoplasm of skin 02/15/2024 Family history of malignant neoplasm of skin 09/06/2023 Gastroesophageal reflux disease without esophagitis 03/15/2022 GERD (gastroesophageal reflux disease) Glaucoma ([facility]) 09/06/2023 Glycosuria 02/15/2024 Glycosuria 09/06/2023 HTN (hypertension) ([facility]) Hypercholesteremia ([facility]) Hyperlipidemia ([facility]) Hypertension ([facility]) Hypertensive disorder ([facility]) 06/10/2014 Macular degeneration Malignant neoplasm of skin 10/17/2012 Melanoma ([facility]) Melanoma in situ of face ([place]) 02/15/2024 Mitral valve disorder 09/17/2013 MILD (ECHO 8/14) Obstructive sleep apnea syndrome 09/17/2013 Paroxysmal atrial fibrillation ([facility]) 09/17/2013 PAF; CHADS2 SCORE 2 (HTN, DM). ON COUMADIN. 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 01/28/2024 Stage 3a chronic kidney disease (HCC) ([facility]) 03/15/2022 Subdural hematoma ([place]) 2023 Type 2 diabetes mellitus without complication, without long-term current use of insulin ([place]) 10/17/2012 Current Outpatient Medications: acetaminophen (Tylenol) 500 [...] MG capsule, , Disp: , Rfl: HYDROcodone-acetaminophen ([place]) 7.5-325 MG tablet, , Disp: , Rfl: [...] Strain: Low Risk (01/24/2024) [facility] Overall Financial Resource Strain (CARDIA) Difficulty of Paying Living Expenses: Not hard at all Food Insecurity: No Food Insecurity (01/24/2024) Received from [facility], [facility] Hunger Vital Sign Within the past 12 months, you worried that your food would run out before you got the money to buymore.: Never true Ran Out of Food in the Last Year: Not on file Transportation Needs: No Transportation Needs (01/24/2024) Received from [facility], [facility] Transportation In the past 12 months, has lack of transportation kept you from medical appointments or from getting medications?: No Lack of Transportation (Non-Medical): Not on file Physical Activity: Not on file Stress: Not on file Social Connections: Not on file Intimate Partner Violence: Unknown (01/24/2024) Received from [facility], [facility] Humiliation, Afraid, Rape, and Kick questionnaire Fear of Current or Ex-Partner: No Emotionally Abused: Not on file Physically Abused: Not on file Sexually Abused: Not on file Housing Stability: Low Risk (01/24/2024) Received from [facility], [facility] Housing Stability Vital Sign Unable to [...] has consented to proceed. documented in this encounterSac-Osage [id number] History of Present illness Narrative* Christin Bolton [...] meds, nerve injury, and recurrence were addressed.) [place] Protocol: Procedure explained and questions answered to [...] sodium bicarbonate Procedure Details: Biopsy accession number: [id number] Biopsy lab: [facility] Date of biopsy: [...] days Next visit: 01/03/2025 documented in this encounterSac-Osage [id number] History of Present illness Narrative* Kingston Coppola DO - 10/03/2024 8:00 AM EST Chief Complaint Patient presents with PLMD Patient is here today for follow-up of CUBA and PLMD. Subjective Tito Blackman Ivanna, 79 y.o., male, being seen today for [...] of Klonopin and will be leaving for [place] in October and not coming back untilApr. He would like to get a 90 day to cover the time he is gone. 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 Mohs 10/21/2022 COVID-19 vaccine administered x 2 ([employer]) Diabetes ([facility]) Diverticulosis of colon 10/17/2012 Family history of malignant neoplasm of skin 02/15/2024 Family history of malignant neoplasm of skin 09/06/2023 Gastroesophageal reflux disease without esophagitis 03/15/2022 GERD (gastroesophageal reflux disease) Glaucoma ([facility]) 09/06/2023 Glycosuria 02/15/2024 Glycosuria 09/06/2023 HTN (hypertension) ([facility]) Hypercholesteremia ([facility]) Hyperlipidemia ([facility] Hypertension ([facility]) Hypertensive disorder ([facility]) 06/10/2014 Macular degeneration Malignant neoplasm of skin 10/17/2012 Melanoma ([facility]) Melanoma in situ of face ([facility]) 02/15/2024 Mitral valve disorder 09/17/2013 MILD (ECHO 05/09) Obstructive sleep apnea syndrome 09/17/2013 Paroxysmal atrial fibrillation ([facility]) 09/17/2013 PAF; CHADS2 SCORE 2 (HTN, DM). ON COUMADIN. 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 01/28/2024 Stage 3a chronic kidney disease (HCC) ([facility]) 03/15/2022 Subdural hematoma ([facility]) 2023 Type 2 diabetes mellitus without complication, without long-term current use of insulin ([place]) 10/17/2012 Past Surgical History: Procedure Laterality Date [...] that also [place] again this [place] 1 1/2 [...] was counseled on the risks of stroke, [place], and sudden with CUBA, along with the [...] to clinic: 3 months documented in this encounterSac-Osage [id number] NoteRight Eye Quality was good. Scan locations included subfoveal. Progression has been stable. Findings include abnormal foveal contour, subretinal scarring. Left Eye Quality was good. Scan locations included subfoveal. Progression has been stable. Findings include abnormal foveal contour. Notes Macular Volume Loss both eyes (OU)[facility] [id number] History of Present illness Narrative* Jose R [...] now given soon to be trip to [place] as well as side effects from last treatment in August. He was provided an [place] grid to check daily and note any changes to this. He understands to get jacob of his retina specialist in [place] if there was a change. Will see [...] artificial tears were recommended. documented in this encounterSac-Osage [id number] Evaluation note* Diagnosis Onset Date Resolution Status Admit Date Anemia acuteAugust 21, 2024 9:08amAtrial fibrillationacuteAugust 21, 2024 9:08amChronic kidney diseaseacuteAugust 21, 2024 9:08amGERD (gastroesophageal reflux disease)2023 9:08amHypertension acuteAugust 21, 2024 9:08amObesityacuteAugust 21, 2024 9:08amOSA (obstructive sleep apnea)2023 9:08amType 2 diabetes mellitus with hyperglycemia2023 9:08amAtrial fibrillationacute October 10, 2024 8:18amChronic kidney diseaseacuteJan2024 8:18am GERD (gastroesophageal reflux disease)acuteOctober 10, 2024 8:18amHypertension acuteOctober 10, 2024 8:18amObesityacuteJanuary 2024 8:18amOSA (obstructive sleep apnea)acuteJanuary 2024 8:18amType 2 diabetes mellitus with hyperglycemiaacuteJanuary 2024 8:18am [facility] Work Phone: 1(817) 913-978211-26-2024 Evaluation note* Diagnosis Onset Date Resolution Status Admit Date Anemia acuteNovember 2023 9:08amAtrial fibrillationacuteNovember 2023 9:08amChronic kidney diseaseacuteNovember 2023 9:08amGERD (gastroesophageal reflux disease)acuteNovember 2023 9:08amHypertension acuteNovember 2023 9:08amObesityacuteNovember 2023 9:08amOSA (obstructive sleep apnea)acuteNovember 2023 9:08amType 2 diabetes mellitus with hyperglycemiaacuteNovember 2023 9:08amAnemiaacuteJanuary 2024 8:18amAtrial fibrillationacuteJanuary 2024 8:18amChronic kidney disease acuteJanuary 2024 8:18amDiabetes mellitus with diabetic polyneuropathy acuteJanuary 2024 8:18amGERD (gastroesophageal reflux disease)acuteJanuary 2024 8:18amHypertensionacuteJanuary 2024 8:18amObesityacuteJanuary 2024 8:18amOSA (obstructive sleep apnea)acuteJanuary 2024 8:18amType 2 diabetes mellitus with hyperglycemiaacuteJanuary 2024 8:18am [facility] Work Phone: 1(425) 735-111910-16-2024 NoteUT Cardiology [facility] Chief Complaint: Thought he [...] In April 2019 he presented to the [facility] with atrial fibrillation with controlled [...] not ill-appearing. HENT: Hea (more content not included)...[facility]09-24-2024 History of Present illness Narrative* Osman Shah, BROADBAND ENGINEER-REPTILE KEEPER - 10/04/2024 2:40 PM EST Images from [...] Next Visit: as scheduled documented in this encounterSac-Osage [id number] History of Present illness Narrative* EDYTA Spence [...] performed by Macario Bui MD Location: Right sabianism Established patient Lesions: Location: Nose Duration: Two [...] limited to risks of scarring, darker or chocolate finisher pigmentary changes, recurrence, incomplete removal and infection. [...] 7. Seborrheic keratosis, inflamed Dorsum of Nose [place] and brown stuck on verrucous scaly papule [...] limited to risks of scarring, darker or chocolate finisher pigmentary changes, recurrence, incomplete removal and infection. [...] History of malignant melanoma of skin Right Muslim No evidence of recurrence at melanoma scar. [...] 6 months, skin check documented in this encounterSac-Osage [id number] NoteRight Eye Quality was good. Scan locations included subfoveal. Progression has been stable. Findings include abnormal foveal contour. Left Eye Quality was good. Scan locations included subfoveal. Progression has been stable. Findings include abnormal foveal contour. Notes Macular Volume Loss both eyes (OU). [facility] [id number] History of Present illness Narrative* oJse R Dodd DO - 06/08/2024 10:30 AM [...] now given soon to be trip to [place] as well as side effects from last treatment in August. He was provided an Amsler grid to check daily and note any changes to this. He understands to get ahold of his retina specialist in [place] if there was a change. Will see [...] artificial tears were recommended. documented in this encounterSac-Osage [id number] Evaluation note* Encounter Date Diagnosis Assessment Notes [...] w/ goal < 135/85.- update office w/ homereadings in 2 weeks. Oct,ontrolled type 2 diabetes mellitus with hyperglycemia (ICD-10 - E11.65)This patient is following a comprehensive diabetic treatment [...] office visit. Continue regular routine monitoring of A1C,Microalbumin, Dilated eye exam and Foot exam Oct,iastolic dysfunction with chronic heart failure (ICD-10 - I50.32) Healthy, low salt diet Exercise daily No changes in medication Daily weights, notify office w/ > 3lbs gain. Strict control of BP and HR Oct,Stage 3a chronic kidney disease (CKD) (ICD-10 - N18.31)The patient is instructed on adequate control of hypertension and diabetes, if appropriate. They are also educated on the associated risks of NSAIDs and PPI use with kidney disease. They were instructed on adequate fluid balance and to avoid dehydration. Oct,aroxysmal atrial fibrillation (ICD-10 - I48.0)This patient is in NSR or rate controlled. This patient is anticoagulated to prevent thromboembolic events. They are maintaining regular scheduled appts with their outpatient surgery rn. Scheduled for LAAO procedure but postponed until spring. Fall precautions. Oct,Obstructive sleep apnea (ICD-10 - G47.33)Auto CPAP 10-15, Facial MaskThis patient is aware of the benefits associated with CUBA: With continued use, the patient reduces the risk for TX, CVA, HTN, cardiac dysrhythmias and sudden cardiac deaths.The patient is also aware of the association between CUBA and morning headaches, daytime somnolence, fatigue and obesity, whichalso has been improved with continued use.The patient is compliant with treatment, wearing the equipment every night for greater than 4 hours.The patient is instructed to continue use of the CPAP forOSA treatment. Oct,Gastro-esophageal reflux disease with esophagitis, without bleeding (ICD-10 - K21.00)Avoid lying flat after eating. Avoid eating 2 hours prior to bedtime. Smaller, frequent meals may be better tolerated.Weight loss if overweight.PPI with any heartburn.Monitor for dysphagia. Oct,Non-rheumatic mitral regurgitation (ICD-10 - I34.0)Denies CP, orthopnea, PND or increasing edema. Serial Echo f/u Cardiology Oct,Hyperlipidemia, mixed (ICD-10 - E78.2)Instructed on diet and exercise with continued statin therapy.Discussed the beneficial effects of lo wering cholesterol in reducing the risk for cerebrovascular and cardiovascular disease. Oct,Hepatic steatosis (ICD-10 - K76.0)Healthy, low fat/high protein diet. Exercise w/ goal of 10% weight loss [facility] Other 02-02-2024 NoteRight Eye Quality was good. Scan locations included subfoveal. Progression has been stable. Findings include abnormal foveal contour, disciform scar. Left Eye Quality was good. Scan locations included subfoveal. Progression has been stable. Findings include normal observations.[facility] [id number] History of Present illness Narrative* Jose R [...] now given soon to be trip to [place] as well as side effects from last treatment in August. He was provided an Amsler grid to check daily and note any changes to this. He understands to get jacob of his retina specialist in [place] if there was a change. Will see [...] artificial tears were recommended. documented in this encounterSac-Osage [id number] History of Present illness Narrative* Shannen Chahal - 03/16/2023 11:20 AM EDT Ortho Nurse - Established Patient Intake Room#: 5 Date: 03/16/2023 11:20 AM Patient: Tito Goncalves MR#: [id number] : 1945 Age: 78 y.o. 1yr R [...] shellfish allergy, and sulfa antibiotics. * Azul Carballo APRN-TOBI - 03/16/2023 11:20 AM EDT HPI: [...] face to face time with patient. Azul Carballo APRN-TOBI I have reviewed the findings of the clinical clinical support specialist and agree with their assessment. Ortho Nurse - Established Patient Intake Room#: 5 Date: 03/16/2023 11:20 AM Patient: Tito Goncalves MR#: [id number] : 1945 Age: 78 y.o. 1yr R [...] allergy, and sulfa antibiotics. documented in this [facility]04-29-2023 Evaluation note* Encounter Date Diagnosis Assessment Notes Treatment Notes Treatment Clinical Notes Dec, Subarachnoid hemorrhage (ICD-10 - I60.9) [facility] Other 04-12-2023 Evaluation note* Encounter Date Diagnosis Assessment Notes Treatment Notes Treatment Clinical Notes Dec, Essential hypertension (ICD-10 - I10) This patient is instructed to consume a healthy, low-fat, low-salt diet. They are also encouraged to continue exercise to achieve/maintain a normal BMI. Dec,ontrolled type 2 diabetes mellitus with hyperglycemia (ICD-10 - E11.65)This patient is following a comprehensive diabetic treatment plan. They are checking their feet daily for calluses and nonhealing ulcers. They are being seen for yearly dilated eye examinations. Goals: SBP less than 130, LDL less than 100, FBS less than 140, AC and A1C less than 7%. They are checking their BS daily, will which are reviewed at the office visit. Dec,Stage 3a chronic kidney disease (CKD) (ICD-10 - N18.31)The patient is instructed on adequate control of hypertension and diabetes, if appropriate. They are also educated on the associated risks of NSAIDs and PPI use with kidney disease. They were instructed on adequate fluid balance and to avoid dehydration. Dec,aroxysmal atrial fibrillation (ICD-10 - I48.0)This patient is in NSR or rate controlled. This patient is anticoagulated to prevent thromboembolic events. They are maintaining regular scheduled appts with their outpatient surgery rn. Dec,Obstructive sleep apnea (ICD-10 - G47.33)Auto CPAP 07-10, Facial MaskThis patient is aware of the benefits associated with CUBA: With continued use, the patient reduces the risk for TX, CVA, HTN, cardiac dysrhythmias and sudden cardiac deaths.The patient is also aware of the association between CUBA and morning headaches, daytime somnolence, fatigue and obesity, whichalso has been improved with continued use.The patient is compliant with treatment, wearing the equipment every night for greater than 4 hours.The patient is instructed to continue use of the CPAP forOSA treatment. Dec,astro-esophageal reflux disease with esophagitis, without bleeding (ICD-10 - K21.00)Diet instructions: Smaller portions, avoid eating and laying flat, avoid eating or drinking prior to bedtime. Weight loss. Dec,Non-rheumatic mitral regurgitation (ICD-10 - I34.0)Asymptomtic, control BP and maintain euvolemic state Dec,Hyperlipidemia, mixed (ICD-10 - E78.2)Diet and exercise with continued statin therapy. Dec,iastolic dysfunction with chronic heart failure (ICD-10 - I50.32) Control BP, low salt diet and keep active. Dec,Hepatic steatosis (ICD-10 - K76.0)Low fat diet, exercise and weight loss. Improved control of BS [facility] Other 02-15-2023 Evaluation note* Encounter Date Diagnosis Assessment Notes Treatment Notes Treatment Clinical Notes Oct, Cholecystitis (ICD-10 - K81.9) [facility] Other 02-14-2023 NotePatient Education Material [facility] ENDOSCOPY DEPART[facility] FOLLOW UP CARE ? For [...] physician?s office at: THANK YOU FOR CHOOSING [facility] ENDOSCOPY DEPARTMENT FOR YOUR PROCEDURE! [phone] This information is not intended to replace advice given to you by your health care provider. Make sure you discuss any questions you have with your health care provider. ExitCare? Patient Information ?2016 [employer]. Custom Education added 09/2018[facility]02-14-2023 NoteNursing Discharge [...] Call Health Care Provider : Verbalizes understanding Sariha Schreiber RN R 11/09/2022 8:43 EST Health Maintenance Education Adult Grid Diet/Nutrition : Verbalizes understanding Sariah Schreiber RN R 11/09/2022 8:43 EST Safety Education Adult Grid Safety, Fall : Verbalizes understanding Sariah Schreiber RN R 11/09/2022 8:43 EST Additional Session Learner/s Present : Daughter Sariah Schreiber RN R 11/09/2022 8:[facility]* Encounter Date Diagnosis Assessment Notes Treatment Notes Treatment Clinical Notes Sep, Controlled type 2 di abetes mellitus with hyperglycemia (ICD-10 - E11.65) This [...] which are reviewed at the office visit. Sep,Essential hypertension (ICD-10 - I10)This patient is instructed to consume a healthy, low-fat, low-salt diet. They are also encouraged to continue exercise to achieve/maintain a normal BMI. Sep,Stage 3a chronic kidney disease (CKD) (ICD-10 - N18.31)The patient is instructed on adequate control of hypertension and diabetes, if appropriate. They are also educated on the associated risks of NSAIDs and PPI use with kidney disease. They were instructed on adequate fluid balance and to avoid dehydration. Sep,aroxysmal atrial fibrillation (ICD-10 - I48.0)Rhythm control w/ AC to prevent thromboembolic events. Sep,Hyperlipidemia, mixed (ICD-10 - E78.2)Diet and exercise with continued statin therapy. Sep,Hepatic steatosis (ICD-10 - K76.0)Low fat diet, exercise and 10% total body weight loss. Control diabetes and hyperlipidemia Sep,iastolic dysfunction with chronic heart failure (ICD-10 - I50.32) Sep,Obstructive sleep apnea (ICD-10 - G47.33)Auto CPAP 10-, Facial MaskThis patient is aware of the benefits associated with CUBA: With continued use, the patient reduces the risk for TX, CVA, HTN, cardiac dysrhythmias and sudden cardiac deaths. The patient is also awareof the association between CUBA and morning headaches, daytime somnolence, fatigue and obesity, which also has been improved with continued use. The patient is compliant with treatment, wearing the equipment every night for greater than 4 hours. The patient is instructed to continue use of the CPAP for CUBA treatment. Sep,astro-esophageal reflux disease with esophagitis, without bleeding (ICD-10 - K21.00)Diet instructions: Smaller portions, avoid eating and laying flat, avoid eating or drinking prior to bedtime. Weight loss. Sep,nticoagulation monitoring by pharmacist (ICD-10 - Z79.01)INR being monitored, no bleeding complications noted [facility] Other 10-13-2022 History of Present illness Narrative* Luis Wang LPN - 07/08/2022 11:20 AM EDT Ortho Nurse - Established Patient Intake Room#: 2 4 month Right TKA, some pain of 1-2 when weed eating, going great Date: 07/08/2022 11:51 AM Patient: Tito Goncalves MR#: [id number] : 1945 Age: 77 y.o. Referring Physician: [...] have reviewed the findings of the clinical clinical support specialist and agree with their assessment. Ortho Nurse - Established Patient Intake Room#: 2 4 month Right TKA, some pain of 1-2 when weed eating, going great Date: 07/08/2022 11:51 AM Patient: Tito Goncalves MR#: [id number] : 1945 Age: 77 y.o. Referring Physician: [...] allergy, and sulfa antibiotics. documented in this encounterTri[facility]08-08-[facility]22 Hospital Discharge instructions Patient Education 05/03/2022 [...] urethra. Follow these instructions at home: Take [id number] and prescription medicines only as told by [...] 09/12/2006 Document Revised: 08/07/2019 Document Reviewed: 10/17/2017 inTarvo Patient Education 2020 [employer]. Follow Up Care 04/27/2021 11:05:10 With:GAGE UMANZOR, CHASITY MariaL Address: [facility] [address] , [place] [address]- [phone] When: Unknown Comments:PRN [facility] Rosalina 07-14-2022 History of Present illness Narrative* Shannen Tirso - 04/08/2022 10:00 AM EDT Ortho Nurse - Established Patient Intake Room#: 5 Date: 04/08/2022 9:50 AM Patient: Tito Goncalves MR#: [id number] : 1945 Age: 77 y.o. 3wk S/P R TKA Pt stated he is doing pretty good and states he has little pain when getting up in the morning and getting off the toilet, 0/10 on the pain scale at today's visit. Pt was wearing his iván hose and using a cane at the time of visit. Referring Physician: Azul Carballo APRN-CNP Insurance: Payor: MEDICARE / Plan: MEDICARE [...] shellfish allergy, and sulfa antibiotics. * Azul Carballo APRN-REPTILE KEEPER - 04/08/2022 10:00 AM EDT HPI: Tito [...] roller. All pertinent portions of the clinical clinical support specialist documentation was reviewed and agree. EDYTA Ayala I have reviewed the findings of the clinical clinical support specialist and agree with their assessment. EDYTA Ayala Ortho Nurse - Established Patient Intake Room#: 5 Date: 04/08/2022 9:50 AM Patient: Tito Goncalves MR#: [id number] : 1945 Age: 77 y.o. 3wk S/P R TKA Pt stated he is doing pretty good and states he has little pain when getting up in the morning and getting off the toilet, 0/10 on the pain scale at today's visit. Pt was wearing his iván hose and using a cane at the time of visit. Referring Physician: Azul Carballo APRN-CNP Insurance: Payor: MEDICARE / Plan: MEDICARE [...] allergy, and sulfa antibiotics. documented in this [facility]06-21-2022 Miscellaneous Notes* Nursing Notes - Kirsten [...] Information Source Information Source patient Contact Information Carton Filler Name Gini Medrano RN Case Manager's Living [...] that he plans to return home with [facility]. The patient states that his daughter [...] assist with discharge plans. documented in this encounterTrihealth [facility]06-21-2022 Note* Nursing Notes - Kirsten Crawford RN - 03/16/2022 3:01 PM EDT Discharge instructions gone over with pt and pt's daughter at this time by Regina GAVIN. Both, verbalize understanding and deny any further questions. Hemovac drain removed at this time, tip intact upon removal, pt tolerated well. [facility] History of Present illness Narrative* Blanca Liv, INGREDIENT SPECIALIST - 03/16/2022 2:21 PM EDT 03/16/22 1421 [...] Transfer Skill: Sit To Stand, Rehab Eval [place] (Sit-Stand Transfers) (mod I) Physical Assist/Nonphysical Assist: Sit/Stand 1 person assist Weight-Bearing Restrictions: Sit/Stand weight-bearing as tolerated Assistive Device For Transfer: Sit/Stand armed chair Gait Skills, PT Eval Level of [place]barger: Gait (mod I) Weight-Bearing Restrictions: Gait weight-bearing as tolerated Assistive Device For Transfer: Gait 2 wheeled walker Gait Distance (600ft; patient demonstrates a good quality heel - toe pattern consistently throughtout treatment) Stair Negotiation [place]barger Level: Stair Negotiation supervision Physical Assist: Stair [...] 100mg 4.00 Total $ 20.60 Birgit Henriquez (Maintenance Foreman) reviewed medications with patient regarding indications, directions [...] Sit to Stand, Rehab Eval Level of [place]bar[place]: Sit/Stand contact guard Physical Assist/Nonphysical Assist: Sit/Stand 1 person assist Weight-Bearing Restrictions: Sit/Stand weight-bearing as tolerated Assistive Device for Transfer: Sit/Stand wheeled walker;armed chair Transfer Skill: Stand to Sit, Rehab Eval Level of [place]bar[place]: Stand/Sit contact guard Physical Assist/Nonphysical Assist: Stand/Sit [...] initiation of treatment Therapist Information License # [id number] In addition to above, ambulated with CGA using FWW. Reclined in chair at end of session with his call light and personal items placed in reach. CLAUDIO Jacobo/Camron 03/16/2022 * Pato Matt - 03/16/2022 11:46 AM EDT Pharmacy to Dose - Warfarin Note PATIENT: Tito Goncalves Room/Bed: [facility] Desired INR range: 2-3 Indication(s): Atrial Fibrillation Medications: No drug interactions were identified based on the patient's current therapy. Current Diet Status: Regular Recent bleeding/bleeding event: None noted Last labs: INR Date Value Ref Range Status 03/16/2022 1.37 (H) 0.85 - 1.10 Final Comment: 2.0-3.0 THERAPEUTIC RANGE 2.5-3.5 MECHANICAL VALVE RANGE Testing performed at [place], [place] [address] - ALBUMIN Date Value Ref Range Status 03/16/2022 3.3 (L) 3.5 - 5.0 G/dl Final - Plan: An order was placed for Coumadin 7.5 mg today x 1 based on INR = 1.37. A Pharmacist will continue to follow and make dose changes as clinically appropriate. Please contact pharmacy if there are any questions. Signed: Pato Gutierrez Pharmacist Phone: [phone] Date/Time: 03/16/2022 11:46 AM * Yashira Valencia, [...] 3/5) LLE WFL Supine to Sit Mobility [place] Level: Supine->Sit stand-by assist Physical Assist: Supine->Sit (1 person) Bed Features/Set-up: Supine->Sit Head of bed elevated Skilled Rationale Verbal cues;Sequencing Sit to Stand Transfer [place] Level: Sit->Stand stand-by assist Physical Assist: Sit->Stand (1 person) Assistive Device: Sit->Stand 2 wheeled walker;gait belt Skilled Rationale Verbal cues;Hand placement;Sequencing Stand to Sit Transfer [place] Level: Stand->Sit stand-by assist Physical Assist: Stand->Sit (1 person) Assistive Device: Stand->Sit 2 wheeled walker;gait belt Skilled Rationale Verbal cues;Hand placement;Sequencing;Controlled descent for sitting Sitting Balance Static Sitting-Level of Assistance Independent Standing Balance Static Standing-Level of Assistance Stand-by assist Dynamic Standing-Level of Assistance Stand-by assist Standing-Balance Support 2 wheeled walker;Gait belt Skilled Rationale Verbal cues;Full extension to upright positioning/posture;Upright gaze/neck extension Gait Assessment Wilbarger Level: Gait contact guard assist Physical Assist: [...] (248 lb) 02/08/18 117.9 kg (260 lb) [place] body weight: 77.6 kg (171 lb 1.9 [...] plan. Patient plans to return home with [facility]. His daughter will be staying with [...] Warfarin and PT/INR management. Questions answered regarding [facility], patient denies any other questions or needs at this time. Referral information with orders for PT/INR faxed to [facility], spoke with staff who confirm start of care for tomorrow. Follow up appointment scheduled for 04/08/22 @ 10:00 am. * Grupo Morgan RPh,PharmD - 03/15/2022 6:24 PM EDT Pharmacy to Dose - Warfarin Note PATIENT: Tito Goncalves Room/Bed: [facility] Desired INR range: 2-3 Indication(s): Atrial Fibrillation Last labs: INR Date Value Ref Range Status 03/15/2022 1.36 (H) 0.85 - 1.10 Final Comment: 2.0-3.0 THERAPEUTIC RANGE 2.5-3.5 MECHANICAL VALVE RANGE Testing performed at [place], [place] [address] - ALBUMIN Date Value Ref Range Status 02/18/2022 3.8 3.5 - 5.0 G/dl Final - Plan: An order was placed for 5 mg based on current Home Dosage. A Pharmacist will continue to follow and make dose changes as clinically appropriate. Please contact pharmacy if there are any questions. Signed: Grupo Morgan RPh,PharmD, Pharmacist Phone: [phone] Date/Time: 03/15/2022 6:24 PM * Samantha Miner [...] Male, 77 y.o., 1945 (H) PCP: Augustine Metz, Primary Cvg: Medicare/Medicare A And B RE: [...] you require anything further documented in this encounterTri[facility]06-21-2022 Note* Nursing Notes - Dian Roberts [...] anxious to head home and settle in. [facility]06-[facility] Hospital Discharge instructions* Discharge Instructions* Kirsten [...] days or until therapeutic with results to [facility]. , Contact Office ([phone]) if: > Total Knee ROM < 90 [...] sent through Care Everywhere. * docusate (oral/rectal) (Samoan) * oxycodone (Samoan) documented in this [facility]06[facility] Note* Plan of Care - Regina [...] discharge/transition of care. Outcome: Adequate for Discharge [facility] Note* Nursing Notes - Kirsten Crawford RN - 03/16/2022 11:39 AM EDT Assessment unchanged from previous by this nurse unless otherwise noted in flowsheet [facility]06-[facility] Hospital course Narrative* Domenico Ferguson MD - 03/16/2022 8:54 AM EDT Images from the original note were not included. Discharge Summary Name: Tito Goncalves Age: 77 y.o. Birthday: 1945 Admit Date: 03/15/2022 8:10 AM Discharge Date: 03/16/2022 Discharge Time: 03/16/2022 Discharge Unit: [facility] Re[facility] Unit Length of Stay: [...] leg. Kidney stones, admitted to [facility] for elective rig ht total knee [...] as: COUMADIN STOP taking these medications Glucosamine-Chondroitin 3194-3161 MG/30ML LIQD Follow-up: No follow-up provider specified. Upcoming Appointments (up to five)-Some appointments for Medical Center outpatient clinics or diagnostic testing locations are not displayed below Provider Department Dept Phone 04/08/2022 10:00 AM [facility] [phone] Total coordination of discharge care taking greater that 35 minutes documented in this [facility]06-21-2022 Note* Plan of Care - Birgit [...] Devices: pillows Note: IVÁN Ramirez, Foot pumps [facility]06-21-20[facility] Note* Nursing Notes - Birgit Thakur RN - 03/16/2022 3:09 AM EDT Assessment remains unchanged unless otherwise noted in flow sheet. Pt denies pain. Neuro/pulses unchanged. New bag of NS hung at this time. Vitals WDL. Pt denies any needs and call light is in reach. [facility] [employer] [id number] Note* Nursing Notes - Birgit Thakur RN - 03/15/2022 11:59 PM EDT Assessment remains unchanged unless otherwise noted in flow sheet. Pt denies any pain. Neuro/pulsesunchanged. NS infusing @ 100ml/hr and Ancef administered. Pt denies any needs and call light is in reach. [facility]06-20-20[facility] Note* Nursing Notes - Birgit Thakur RN - 03/15/2022 8:06 PM EDT RT called at this time due to O2 change from 1.5 to 1L. Pt also has home CPAP/BIPAP device. RT madeaware. [facility]06-[facility]* Nursing Notes - Araseli Ron RN - 03/15/2022 5:53 PM EDT Patient tolerating clear liquids at this time, diet advanced per orders. [facility]06-[facility] Consult note* Javier-Cameron Ferguson MD - [...] mg by mouth daily. Historical Provider Glucosamine-Chondroitin 9911-7440 MG/30ML Liquid Take by mouth. Historical Provider [...] 81 mg by mouth daily. 03/04/2022 Glucosamine-Chondroitin 2529-3177 MG/30ML Liquid Take by mouth. Multiple Vitamins-Minerals [...] OT, ST and SW. Domenico Ferguson MD [facility]06-20-20[facility] Consult note* Domenico Ferguson MD - [...] mg by mouth daily. Historical Provider Glucosamine-Chondroitin 3880-5195 MG/30ML Liquid Take by mouth. Historical Provider [...] 81 mg by mouth daily. 03/04/2022 Glucosamine-Chondroitin 5145-6469 MG/30ML Liquid Take by mouth. Multiple Vitamins-Minerals [...] SW. Domenico Ferguson MD documented in this encounterTri[facility]06-20-2022 Note* Nursing Notes - Araseli Ron RN - 03/15/2022 2:26 PM EDT Patient to OR at this time. [facility]* Nursing Notes - Araseli Ron RN - 03/15/2022 11:57 AM EDT Patient assessment unchanged from previous. Patient ambulated to bathroom and voided. Patient denies any needs at this time. Call light in reach. [facility]* Nursing Notes - Gini Medrano RN - 02/18/2022 1:25 PM EDT 02/18/22 1324 Information Source Information Source patient Contact Information Carton Filler Name Gini Medrano RN Case Manager's Living [...] that he plans to return home with [facility]. The patient states that his daughter [...] to follow and assist with discharge plans. [facility]04-[facility] History of Present illness Narrative* Luis Wang LPN - 2022 1:10 PM EDT Ortho Nurse - Established Patient Intake Room#: 1 Right knee pain of 9, no interventions, falls, or injuries, came in today with left knee pain, left knee revision 2016 Dr Bedoya Date: 2022 1:06 PM Patient: Tito Goncalves MR#: [id number] : 1945 Age: 77 y.o. Referring Physician: [...] a right total knee arthroplasty for optimal intermediate accountant management. PHYSICAL EXAM: This is an alert, [...] joint space, subchondral sclerosis, osteophyte formation, and [id number] contact with posterior loosebodies. He has a [...] of limb, and ultimately loss of life. middle or intermediate school principal expectations, risks and general implant surv ivorship were also discussed. Despite these risks, the patient would like to proceed with surgical planning. 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) [facility] Other Evaluation + Plan note No data available for this section [facility]* Diagnosis Right knee pain, unspecified chronicity- Primary Pain in prosthetic joint, sequela [facility] Diagnosis Preop testing- Primary Preoperative [...] Hyposmolality and/or hyponatremia [facility] noteNo Mobile ShareholderYork [employer] Other Evaluation note* Diagnosis Hx of total knee arthroplasty, right- Primary documented in this encounter [facility]* Diagnosis Hx of total knee arthroplasty, right- Primary [facility] noteN/ADept. of Dermatology Evaluation note* Diagnosis Hx of total knee arthroplasty, right- Primary documented in this encounter [facility]* Diagnosis 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- Primary Age-related nuclear cataract of both eyes Dry eyes Unspecified tear film insufficiency [facility] Diagnosis Onset Date Resolution Status Atrial fibrillation acuteChronic kidney diseaseacuteGERD (gastroesophageal reflux disease)acute HemopericardiumacuteHypercholesterolemiaacuteHypertensionacuteOSA (obstructive sleep apnea)acute [facility] Work Phone: Evaluation note* Diagnosis Onset Date Resolution Status Atrial fibrillation acuteChronic kidney diseaseacuteHemopericardiumacuteHypertensionacuteObesity acuteOSA (obstructive sleep apnea)acuteCellulitis of right upper extremity noneactive [facility] Work Phone: Evaluation note* Diagnosis Onset Date Resolution Status Atrial fibrillation acuteChronic kidney diseaseacuteHemopericardiumacuteHypertensionacuteObesity acuteOSA (obstructive sleep apnea)acuteCellulitis of right upper extremity noneactiveAtrial fibrillationacuteChronic kidney diseaseacuteHypertensionacute ObesityacuteOSA (obstructive sleep apnea)acuteType 2 diabetes mellitus with hyperglycemiaacute [facility] Work Phone: Evaluation note* Diagnosis Onset Date Resolution Status Atrial fibrillation acuteChronic kidney diseaseacuteHemopericardiumacuteHypertensionacuteObesity acuteOSA (obstructive sleep apnea)acuteCellulitis of right upper extremity noneactiveAtrial fibrillationacuteChronic kidney diseaseacuteHypertensionacute ObesityacuteOSA (obstructive sleep apnea)acuteType 2 diabetes mellitus with hyperglycemiaacuteAnemiaacuteAtrial fibrillationacuteChest painacuteChronic kidney diseaseacuteHypertensionacuteOSA (obstructive sleep apnea)acuteType 2 diabetes mellitus with hyperglycemiaacute [facility] Work Phone: Evaluation note* Diagnosis Onset Date Resolution Status Atrial fibrillation acuteChronic kidney diseaseacuteHypertensionacuteObesityacuteOSA (obstructive sleep apnea)acuteType 2 diabetes mellitus with hyperglycemiaacuteAnemiaacute Atrial fibrillationacuteChest painacuteChronic kidney diseaseacuteHypertension acuteOSA (obstructive sleep apnea)acuteType 2 diabetes mellitus with hyperglycemiaacuteHypertensionacuteType 2 diabetes mellitus with hyperglycemia acuteCOVIDnoneactive [facility] Work Phone: Evaluation note* Diagnosis Onset Date Resolution Status Anemia acuteAtrial fibrillationacuteChest painacuteChronic kidney diseaseacute HypertensionacuteOSA (obstructive sleep apnea)acuteType 2 diabetes mellitus with hyperglycemiaacuteHypertensionacuteType 2 diabetes mellitus with hyperglycemia acuteCOVIDnoneactiveAbrasion of ear canalacute [facility] Work Phone: Evaluation note* Diagnosis PLMD (periodic limb movement disorder)- Primary Periodic limb movement disorder CUBA (obstructive sleep apnea) Obstructive sleep apnea (adult) (pediatric) Daytime hypersomnolence Primary insomnia Persistent disorder of initiating or maintaining sleep Snoring Other dyspnea and respiratory abnormality [facility]* Diagnosis Onset Date Resolution Status Hypertension acuteType 2 diabetes mellitus with hyperglycemiaacuteCOVIDnoneactiveAbrasion of ear canalacuteAtrial fibrillationacuteChronic kidney diseaseacuteHypertension acuteObesityacuteOSA (obstructive sleep apnea)acuteType 2 diabetes mellitus with hyperglycemiaacute [facility] Work Phone: Evaluation note* Diagnosis Advanced atrophic [...] without long-term current use of insulin ([facility]) documented in this encounter [facility]* [...] Onset Date Resolution Status Admit Date Anemia acuteApril 2024 9:37amAtrial fibrillationacuteApril 2024 9:37am Chronic kidney diseaseacuteApril 2024 9:37amDiabetes mellitus with diabetic polyneuropathyacuteApril 2024 9:37amGERD (gastroesophageal reflux disease)acuteApril 2024 9:37amHypertensionacuteApril 2024 9:37am ObesityacuteApril 2024 9:37amOSA (obstructive sleep apnea)acuteApril 2024 9:37amType 2 diabetes mellitus with hyperglycemiaacuteApril 2024 9:37am [facility] Work Phone: Evaluation note* Diagnosis Seborrheic keratosis [...] Onset Date Resolution Status Admit Date Anemia acuteOct2024 9:37amAtrial fibrillationacuteOctober 2024 9:37am Chronic kidney diseaseacuteOctober 2024 9:37amDiabetes mellitus with diabetic polyneuropathyacuteOctober 2024 9:37amGERD (gastroesophageal reflux disease)acuteOct2024 9:37amHypertensionacuteOctober 2024 9:37amHypothyroidism due to 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 9:37amMedicare annual wellness visit, subsequentacuteJuly 12, 2025 9:37amObesityacute July 12, 2025 9:37amOSA (obstructive sleep apnea)acuteOctober 2024 9:37amType 2 diabetes mellitus with hyperglycemiaacuteOctober 2024 9:37am [facility] Work Phone: Evaluation note* Diagnosis 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- Primary Type 2 diabetes mellitus with hyperglycemia, without long-term current use of insulin (HCC) Dry eyes Unspecified tear film insufficiency documented in this encounter [facility] Healthcare[facility] general Narrative - Reported* Type Description Date Medical History hyperlipidemia Medical HistoryGERDMedical HistoryHTNMedical Historya.fibMedical History recurrent choledocholithiasisSurgical HistoryLEFT KNEESurgical History CHOLECYSTECTOMY 2012Hospitalization Historysee above [facility] Other History general Narrative - Reported* Type Description Date Medical History Adrenal nodule Medical HistoryOsteoarthritis of right kneeMedical HistoryGastro-esophageal reflux disease with esophagitis, without bleedingMedical HistoryObstructive sleep apneaMedical HistoryNon-rheumatic mitral regurgitationMedical History Essential hypertensionMedical HistoryHyperlipidemia, mixedMedical HistoryStage 3a chronic kidney disease (CKD)Medical HistoryControlled type 2 diabetes mellitus with hyperglycemiaMedical HistoryParoxysmal atrial fibrillationMedical HistoryChoking due to food in larynx, initial encounterMedical HistoryDysphagia, pharyngoesophagealMedical HistoryHypertensive chronic kidney disease with stage 1 through stage 4 chronic kidney disease, or unspecified chronic kidney disease Medical HistoryAnemiaMedical HistoryHepatic steatosisMedical HistoryEnterobacter sepsisMedical HistoryAt high risk for fallsMedical HistoryDepression screening Medical HistoryOsteoarthritis of knees, bilateralMedical HistoryElevated transaminase levelMedical HistoryRetained cholelithiasis following cholecystectomyMedical HistoryPre-operative examination for internal medicine Medical HistoryAbdominal pain, RUQMedical HistoryPeriodic limb movement disorder (PLMD)Medical HistoryDiastolic dysfunction with chronic heart failureMedical HistoryPancreatic pseudocystMedical HistoryRenal cyst, rightMedical History obesitySurgical HistoryArthroscopy of left [id number] History CHOLECYSTECTOMY 2012Surgical HistoryAmputation of ring finger left [id number] Surgical HistoryERCP stint [id number] HistoryCardio-version (A-Fib)2013 Surgical HistoryCardio-version (A-Fib)2014Surgical HistoryERCP (stone removal) 2015Surgical HistoryERCP w/ stone removal10/2022Hospitalization Historysee above [facility] Other History general Narrative - Reported* Type Description Date Medical History Adrenal nodule Medical HistoryOsteoarthritis of right kneeMedical HistoryGastro-esophageal reflux disease with esophagitis, without bleedingMedical HistoryObstructive sleep apneaMedical HistoryNon-rheumatic mitral regurgitationMedical History Essential hypertensionMedical HistoryHyperlipidemia, mixedMedical HistoryStage 3a chronic kidney disease (CKD)Medical HistoryControlled type 2 diabetes mellitus with hyperglycemiaMedical HistoryParoxysmal atrial fibrillationMedical HistoryChoking due to food in larynx, initial encounterMedical HistoryDysphagia, pharyngoesophagealMedical HistoryHypertensive chronic kidney disease with stage 1 through stage 4 chronic kidney disease, or unspecified chronic kidney disease Medical HistoryAnemiaMedical HistoryHepatic steatosisMedical HistoryEnterobacter sepsisMedical HistoryAt high risk for fallsMedical HistoryDepression screening Medical HistoryOsteoarthritis of knees, bilateralMedical HistoryElevated transaminase levelMedical HistoryRetained cholelithiasis following cholecystectomyMedical HistoryPre-operative examination for internal medicine Medical HistoryAbdominal pain, RUQMedical HistoryPeriodic limb movement disorder (PLMD)Medical HistoryDiastolic dysfunction with chronic heart failureMedical HistoryPancreatic pseudocystMedical HistoryRenal cyst, rightMedical History obesityMedical HistorySubarachnoid hemorrhage 12/2022Surgical HistoryArthroscopy of left [id number] HistoryCHOLECYSTECTOMY 2012Surgical HistoryAmputation of ring finger left [id number] HistoryERCP stint [id number] HistoryCardio-version (A-Fib)2012Surgical HistoryCardio-version (A-Fib)2013 Surgical HistoryERCP (stone removal)2015Surgical HistoryERCP w/ stone removal 10/2022Hospitalization Historysee above [facility] Other History general Narrative - Reported* Type Description Date Medical History Adrenal nodule Medical HistoryOsteoarthritis of right kneeMedical HistoryGastro-esophageal reflux disease with esophagitis, without bleedingMedical HistoryObstructive sleep apneaMedical HistoryNon-rheumatic mitral regurgitationMedical History Essential hypertensionMedical HistoryHyperlipidemia, mixedMedical HistoryStage 3a chronic kidney disease (CKD)Medical HistoryControlled type 2 diabetes mellitus with hyperglycemiaMedical HistoryParoxysmal atrial fibrillationMedical HistoryChoking due to food in larynx, initial encounterMedical HistoryDysphagia, pharyngoesophagealMedical HistoryHypertensive chronic kidney disease with stage 1 through stage 4 chronic kidney disease, or unspecified chronic kidney disease Medical HistoryAnemiaMedical HistoryHepatic steatosisMedical HistoryEnterobacter sepsisMedical HistoryAt high risk for fallsMedical HistoryDepression screening Medical HistoryOsteoarthritis of knees, bilateralMedical HistoryElevated transaminase levelMedical HistoryRetained cholelithiasis following cholecystectomyMedical HistoryPre-operative examination for internal medicine Medical HistoryAbdominal pain, RUQMedical HistoryPeriodic limb movement disorder (PLMD)Medical HistoryDiastolic dysfunction with chronic heart failureMedical HistoryPancreatic pseudocystMedical HistoryRenal cyst, rightMedical History obesityMedical HistorySubarachnoid hemorrhage 12/2022Surgical HistoryArthroscopy of left [id number] HistoryCHOLECYSTECTOMY 2012Surgical HistoryAmputation of ring finger left [id number] HistoryERCP stint [id number] HistoryCardio-version (A-Fib)2012Surgical HistoryCardio-version (A-Fib)2013 Surgical HistoryERCP (stone removal)2014Surgical HistoryERCP w/ stone removal 10/2022Surgical [id number] Historysee above [facility] Other Hospital Discharge instructions Additional Instructions 1. Sleep on 2 pillows 2. You may shower late tomorrow afternoon, keep wounds dry and clean 3. Small amount of Vaseline to sutures twice daily 4. Tylenol or Motrin for discomfort 5. See Dr. Freitas in 1 [facility] Work Phone: Hospital Discharge instructions Additional Instructions sleep on 2 pillows ok to shower tomorrow am, keep wound dry and clean small amount of vasaline to sutures [address] Freitas in 1 [facility] Work Phone: Progress note No data available for this section [facility] reason for referral (narrative)* Name Reason for referral NA NA Dept. of Dermatology Reason for referral (narrative)No reason for referral information available[facility] Work [facility]: Reason for visit Narrative* Auth/CertSpecialty Diagnoses / ProceduresReferred By ContactReferred To Contact Diagnoses Osteoarthritis of right knee, unspecified osteoarthritis type Osteoarthritis of right knee, unspecified osteoarthritis type [M17.11] Procedures MO TOTAL KNEE ARTHROPLASTY ARTHROPLASTY KNEE TOTAL Pastor Bedoya MD [address] [place] [address] Referral IDStatusReasonStart DateExpiration DateVisits RequestedVisits [id number] [facility] Summary Purpose Family History No Family History Records Found Relationship Condition Age at Onset Recorded Date/T ro[place] Not Specified Cerebral hemorrhage Unknown Malignant neoplasm of breastUnknownfatherHeart diseaseUnknownfatherDiabetes mellitusUnknownHeart diseaseUnknownNot SpecifiedMalignant neoplasmUnknown Relationship Condition Age at Onset Recorded Date/T ro[place] Not Specified Cerebral hemorrhage Unknown Malignant neoplasm of breastUnknownMalignant neoplasmUnknownfatherHeart disease UnknownDiabetes mellitusUnknown Relationship Condition Age at Onset Recorded Date/T [place] mother Cerebral hemorrhage Unknown Malignant neoplasm of breastUnknownMalignant neoplasmUnknownfatherHeart disease UnknownDiabetes mellitusUnknown Relationship Condition Age at Onset Recorded Date/T ro[place] mother Cerebral hemorrhage Unknown Malignant neoplasm of breastUnknownfatherDiabetes mellitusUnknownHeart disease Unknown Advance Directives No Advanced Directives Records FoundLatest Code Status on File Code StatusDate ActivatedDate InactivatedCommentsFull Code03/15/2022 4:44 PMCode StatusDate ActivatedDate InactivatedCommentsFull Code03/15/2022 4:44 PM Advance Directive Response Recorded Date/ Time Advance Directives No November 04, 2021 2:26pm Advance Directive Response Recorded Date/ Time Advance Directives No April 02 12:19pm Advance Directive Response Recorded Date/ Time Advance Directives No April 02 11:19am Reason for Referral StatusReasonSpecialtyDiagnoses / ProceduresReferred By ContactReferred To ContactNew Request Diagnoses History of revision of total replacement of left knee joint Procedures XR KNEE LEFT 3 VIEWS Azul Carballo, BROADBAND ENGINEER-REPTILE KEEPER [address] [place] [id number] SpecialtyDiagnoses / ProceduresReferred By ContactReferred To Contact Diagnoses Pain in prosthetic joint, sequela Procedures XR KNEE LEFT 3 VIEWS Pastor Bedoya MD [address] [place], [place] [phone] Referral IDStatusReasonStart DateExpiration DateVisits RequestedVisits [id number] Request/[id number] / Procedures Referred By ContactReferred To Contact Diagnoses Right knee pain, unspecified chronicity Procedures XR KNEE RIGHT 4+ VIEWS Pastor Bedoya MD [address] [place], [place] [phone] Referral IDStatusReasonStart DateExpiration DateVisits RequestedVisits [id number] Request/[id number] / Procedures Referred By ContactReferred To ContactSocial Work Diagnoses Restless leg syndrome Stage 3a chronic kidney disease S/P total knee arthroplasty, right Paroxysmal atrial fibrillation Type 2 diabetes mellitus without complication, without long-term current use of insulin Domenico Ferguson MD [address] [place], [place] [id number] Referral IDStatusReasonStart DateExpiration DateVisits RequestedVisits [id number] Request/[id number] / Procedures Referred By ContactReferred To Contact Diagnoses Acute postoperative pain of right knee Samantha Miner [address] [place], [place] [address] Referral IDStatusReasonStart DateExpiration DateVisits RequestedVisits [id number] Request/ Scheduling Instructions . SpecialtyDiagnoses / ProceduresReferred By ContactReferred To ContactPhysical Therapy Diagnoses Hx of total knee arthroplasty, right Azul Carballo, BROADBAND ENGINEER-REPTILE KEEPER [address] [place], [place] [phone] [facility] [address] [place] [phone] Referral IDStatusReasonStart DateExpiration DateVisits RequestedVisits [id number] Request/[id number] / Procedures Referred By ContactReferred To Contact Diagnoses Hx of total knee arthroplasty, right Procedures XR KNEE RIGHT 3 VIEWS Azul Carballo APRN-CNP [address] [id number] Referral IDStatusReasonStart DateExpiration DateVisits RequestedVisits [id number] Request/[id number] / Procedures Referred By ContactReferred To Contact Diagnoses Hx of total knee arthroplasty, right Procedures XR KNEE RIGHT 3 VIEWS Pastor Bedoya MD [address] [place] [id number] Referral IDStatusReasonStart DateExpiration DateVisits RequestedVisits [id number] / Procedures Referred By ContactReferred To Contact Diagnoses Hx of total knee arthroplasty, right Procedures XR BONE LENGTH STUDY Pastor Bedoya MD [address] [place] [id number] Referral IDStatusReasonStart DateExpiration DateVisits RequestedVisits [id number] IDStatusReasonStart DateExpiration DateVisits RequestedVisits [id number] Request03/15/2023 History of Present Illness * Azul Carballo APRN-CNP - 03/20/2020 11:20 AM EDT HPI: [...] have reviewed the findings of the clinical clinical support specialist and agree with their assessment. Ortho Nurse Established Patient Intake Room#: 5 Date: 03/20/2020 11:10 AM Patient: Tito Goncalves MR#: [id number] : 1945 Age: 75 y.o. 3 yr f/u L knee revision. Pt states that about the last couple months when moving from a lying postion in bed and turning, he has severe pain in bilat knees, which goes away once he is repositioned. Otherwise he reports he has been doing well. Referring Physician: Azul Carballo APRN-CNP Insurance: Payor: MEDICARE / Plan: MEDICARE [...] 03/20/2020 11:10 AM Patient: Tito Goncalves MR#: [id number] : 1945 Age: 75 y.o. 3 yr f/u L knee revision. Pt states that about the last couple months when moving from a lying postion in bed and turning, he has severe pain in bilat knees, which goes away once he is repositioned. Otherwise he reports he has been doing well. Referring Physician: Azul Carballo APRN-CNP Insurance: Payor: MEDICARE / Plan: MEDICARE [...] Complaint Amb Documentation Amb Documentation hospital follow upReason for VisitAtrial fibrillation Chronic kidney disease GERD (gastroesophageal reflux disease) Hemopericardium Hypercholesterolemia Hypertension CUBA (obstructive sleep apnea) Chief Complaint Amb Documentation Amb Documentation hospital follow up scalp woundReason for VisitAtrial fibrillation Chronic kidney disease Hemopericardium Hypertension Obesity CUBA (obstructive sleep apnea) Cellulitis of right upper extremity Chief Complaint Amb Documentation Amb Documentation hospital follow up scalp wound scalp woundReason for VisitAtrial fibrillation Chronic kidney disease Hemopericardium Hypertension Obesity CUBA (obstructive sleep apnea) Cellulitis of right upper extremity Chief Complaint Amb Documentation Amb Documentation hospital follow up scalp wound scalp wound 4 month follow upReason for VisitAtrial fibrillation Chronic kidney disease Hemopericardium Hypertension Obesity CUBA (obstructive sleep apnea) Cellulitis of right upper extremity Atrial fibrillation Chronic kidney disease Hypertension Obesity CUBA (obstructive sleep apnea) Type 2 diabetes mellitus with hyperglycemia Chief Complaint Amb Documentation hospital follow up scalp wound scalp wound 4 month follow up [facility] follow up, chest painReason for VisitAtrial fibrillation Chronic kidney disease Hemopericardium Hypertension Obesity [...] follow up [facility] follow up, chest pain [phone] sinus problemsReason for VisitAtrial fibrillation Chronic kidney disease Hypertension Obesity CUBA (obstructive sleep apnea) Type 2 diabetes mellitus with hyperglycemia Anemia Atrial fibrillation Chest pain Chronic kidney disease Hypertension CUBA (obstructive sleep apnea) Type 2 diabetes mellitus with hyperglycemia Hypertension Type 2 diabetes mellitus with hyperglycemia COVID Chief Complaint [facility] follow up, chest pain [phone] sinus problems Rt ear painReason for VisitAnemia Atrial fibrillation Chest pain Chronic kidney disease Hypertension CUBA (obstructive sleep apnea) Type 2 diabetes mellitus with hyperglycemia Hypertension Type 2 diabetes mellitus with hyperglycemia COVID Abrasion of ear canal Chief Complaint [phone] sinus p roblems Rt ear pain wellnessReason for VisitHypertension Type 2 diabetes mellitus with hyperglycemia COVID [...] 9:37am Type 2 diabetes mellitus with hyperglyce [facility] January 09, 2025 9:37am Chief Complaint Admit [...] 9:37am Type 2 diabetes mellitus with hyperglyce [facility] January 09, 2025 9:37am Anemia February 13, [...] section and content) DATE CREATED AUTHOR 03/21/2018 [facility] DATE CREATED AUTHOR AUTHOR'S ORGANIZ ATION 06/15/[address] [facility] DATE CREATED AUTHOR AUTHOR'S ORGANIZ ATION 03/25/2022 [facility] DATE CREATED AUTHOR AUTHOR'S ORGANIZ ATION 05/04/2022 [facility] DATE CREATED AUTHOR AUTHOR'S ORGANIZ ATION 10/04/2022 [facility] DATE CREATED AUTHOR AUTHOR'S ORGANIZ ATION 02/02/2023 [facility] DATE CREATED AUTHOR AUTHOR'S ORGANIZ ATION 03/05/2023 [facility] DATE CREATED AUTHOR AUTHOR'S ORGANIZ ATION 03/20/2023 [facility]3] DATE CREATED AUTHOR AUTHOR'S ORGANIZ ATION 07/12/2023 [facility] DATE CREATED AUTHOR AUTHOR'S ORGANIZ ATION 11/04/2024 [facility] DATE CREATED AUTHOR AUTHOR'S ORGANIZ ATION 06/30/[address] [facility] DATE CREATED AUTHOR AUTHOR'S ORGANIZ ATION 07/21/2025 [facility] EPIC Reason for Visit (unrecogniz ed section and content) ReasonCommentsFollow-upStatusReasonSpecialtyDiagnoses / ProceduresReferred By ContactReferred To ContactNew Request Diagnoses History of revision of total replacement of left knee joint Procedures XR KNEE LEFT 3 VIEWS Azul Carballo, BROADBAND ENGINEER-REPTILE KEEPER [address] [place], [place] [phone] ReasonCommentsPainSpecialtyDiagnoses / ProceduresReferred By ContactReferred To Contact Diagnoses Pain in prosthetic joint, sequela Procedures XR KNEE LEFT 3 VIEWS Pastor Bedoya MD [address] [place], [place] [phone] Referral IDStatusReasonStart DateExpiration DateVisits RequestedVisits [id number] / Procedures Referred By ContactReferred To Contact Diagnoses Right knee pain, unspecified chronicity Procedures XR KNEE RIGHT 4+ VIEWS Pastor Bedoya MD [address] [place] [address] Referral IDStatusReasonStart DateExpiration DateVisits RequestedVisits [id number] Request/[id number] / Procedures Referred By ContactReferred To Contact Diagnoses Hx of total knee arthroplasty, right Procedures XR KNEE RIGHT 3 VIEWS Azul Carballo, BROADBAND ENGINEER-TOBI [address] [place] [address] Referral IDStatusReasonStart DateExpiration DateVisits RequestedVisits [id number] [id number] Op Visit SpecialtyDiagnoses / ProceduresReferred By ContactReferred To Contact Diagnoses Hx of total knee arthroplasty, right Procedures XR KNEE RIGHT 3 VIEWS Pastor Bedoya MD [address] [place] [address] Referral IDStatusReasonStart DateExpiration DateVisits RequestedVisits [id number] IDStatusReasonStart DateExpiration DateVisits RequestedVisits [id number] Request03/15/[id number] InjectionReasonCommentsSleep ApneaReason CommentsFollow-upMacular DegenerationReasonCommentsFollow-upReasonCommentsPLMD ReasonCommentsMohs Micrographic SurgeryReasonCommentsMohs ReconstructionMohs scalpReasonCommentsPost-opPost op mohs repair NoseReasonOnset DateCommentsMed Lqrewc5812/28/2024ReasonCommentsFollow-upMacular DegenerationCataractReason CommentsPost-op2 month lachelle Mohs noseReasonCommentsSkin Check Care Teams (unrecognized sec tion and content) Team Status: Active Member Role Status Dates Augustine Metz DO Primary Care Provider Active Team Status: Inactive Member Role Status Dates Augustine Metz DO Primary Care Provider Active Start: October 17, 2024 End: October 17enjamin Murcek , DOAttending ProviderActiveStart: October 17, 2024 End: October 17, 2024 Team Status: Inactive Member Role Status Dates Augustine Metz DO Primary Care Provider Active Start: October 22, 2024 End: October 22enlouann Freitas , DOAttending ProviderActiveStart: October 22, 2024 End: October 22, 2024 Team Status: Inactive Member Role Status Dates Augustine Metz DO Primary Care Provide r, Attending Provider Active Start: January 09, 2025 End: January 09, 2025 Team Status: Active Member Role Status Dates Augustine Metz DO Primary Care Provider Active Start: April 01, 2024 Osman Edmonds PA-CAttending ProviderActiveStart: April 01, 2024 Team Status: Active Member Role Status Dates Augustine Metz DO Primary Care Provider Active Start: April 02, 2024 Artemio Ch MDAttending ProviderActiveStart: April 02, 2024 Team Status: Active Member [...] Start: June 04, 2024 End: June 04, 2024Blanca Lay APRN SHOULDER JOINER-CAttending ProviderActive Start: June 04, 2024 End: June 04, 2024 Team Status: Inactive Member Role Status Dates Augustine Metz DO Primary Care Provider Active Start: February 16, 2024 End: February 15stephen Freitas , DOAttending ProviderActiveStart: February 16, 2024 End: February 16, 2024 Team Status: Inactive Member Role Status Dates Augustine Metz DO Primary Care Provider Active Start: February 24, 2024 End: February 23stephen Freitas , DOAttending ProviderActiveStart: February 24, 2024 End: February 24, 2024 Team Status: Inactive Member Role Status Dates Augustine Metz , Primary Care Provide r, Attending Provider Active Start: February 27, 2024 End: February 27, 2024Team MemberRelationshipSpecialtyStart DateEnd Date Augustine Metz, DO [address] [facility] [place] [address] PCP - GeneralInternal Medicine01/24/17am MemberRelationshipSpecialtyStart Date End Date Augustine Metz, DO [address] [facility] [place] [address] PCP - GeneralInternal Medicine01/24/17am MemberRelationshipSpecialtyStart Date End Date Augustine Metz, DO [address] [facility] [place] [address] PCP - GeneralInternal Medicine01/24/17am MemberRelationshipSpecialtyStart Date End Date Augustine Metz, DO [address] [facility] [place] [address] PCP - GeneralInternal Medicine01/24/17am MemberRelationshipSpecialtyStart Date End Date Augustine Metz, DO [address] [facility] [place] [address] PCP - GeneralInternal Medicine01/24/17am MemberRelationshipSpecialtyStart Date End Date Augustine Metz, DO [address] [facility] [place] [address] PCP - GeneralInternal Medicine01/24/17Team MemberRelationshipSpecialtyStart Date End Date Augustine Metz, DO [address] [facility] [place] [address] PCP - GeneralInternal Medicine01/24/17Team MemberRelationshipSpecialtyStart Date End Date Augustine Metz DO [address] [facility] [place] [address] [facility]01/24/17Team MemberRelationshipSpecialtyStart Date End Date Augustine Metz DO [address] [facility] [place] [address] - [address] [facility]01/24/17Team MemberRelationshipSpecialtyStart Date End Date Augustine Metz MD [address] [place] [phone] [facility]06/02/23Team MemberRelationshipSpecialtyStart Date End Date Augustine Metz MD [address] [place] [address] PCP - GeneralInternal Medicine06/02/23 Team Status: Active Member Role Status Dates Augustine Metz DO Primary Care Provider Active Start: December 16, 2023 Inez Graham ProviderActiveStart: December 16, 2023 Team Status: Active Member Role Status Dates Augustine Metz DO Primary Care Provide r, Attending Provider Active Start: January 18, 2024 Team Status: Active Member Role Status Dates Augustine Metz DO Primary Care Provider Active Start: January 31, 2024 Inez Nick ProviderActiveStart: January 31, 2024 Team Status: Inactive Member Role Status Dates Augustine Metz DO Primary Care Provide r, Attending Provider Active Start: January 31, 2024 End: January 31, 2024Team MemberRelationshipSpecialtyStart DateEnd Date Augustine Metz MD [address] [facility] [place] [address] - [address] [facility]06/02/23 Christin Bolton MD [address] [place] [address] Referring PhysicianDermatology02/15/24 Augustine Freitas DO [address] [place] [address] Otolaryngology02/15/24Team MemberRelationshipSpecialtyStart DateEnd Date Augustine Metz MD [address] [facility] [place] [address] PCP - GeneralInternal Medicine06/02/23 Christin Bolton MD [address] [place] [address] Referring PhysicianDermatology02/15/24 Augustine Freitas DO [address] [place] [address] Otolaryngology02/15/24 Team Status: Active Member Role Status Dates Augustine Metz DO Primary Care Provide r, Attending Provider Active Start: June 27, 2024 Team Status: Inactive Member Role Status Dates Augustine Metz DO Primary Care Provide r, Attending Provider Active Start: July 09, 2024 End: July 09, 2024Team MemberRelationshipSpecialtyStart DateEnd Date Augustine Metz MD PCP - GeneralInternal Medicine06/02/23 Christin Bolton MD [address] [place] [address] Referring PhysicianDermatology02/15/24 Augustine Freitas DO [address] [place] [address] Otolaryngology02/15/24Team MemberRelationshipSpecialtyStart DateEnd Date Augustine Metz MD PCP - GeneralInternal Medicine06/02/23 Christin Bolton MD [address] [place] [address] Referring PhysicianDermatology02/15/24 Augustine Freitas DO [address] [place] [address] Otolaryngology02/15/24Team MemberRelationshipSpecialtyStart DateEnd Date Augustine Metz MD [address] [facility] [place] [address] PCP - GeneralInternal Medicine06/02/23 Christin Bolton MD [address] [place] [address] Referring PhysicianDermatology02/15/24 Augustine Freitas DO [address] [place] [address] Otolaryngology02/15/24Team MemberRelationshipSpecialtyStart DateEnd Date Augustine Metz MD [address] [facility] [place] [address] PCP - GeneralInternal Medicine06/02/23 Christin Bolton MD [address] [place] [address] Referring PhysicianDermatology02/15/24 Augustine Freitas DO [address] [place] [address] Otolaryngology02/15/24Team MemberRelationshipSpecialtyStart DateEnd Date Augustine Metz MD [address] [facility] [place] [address] PCP - GeneralInternal Medicine06/02/23 Christin Bolton MD [address] [place] [address] Referring PhysicianDermatology02/15/24 Augustine Freitas, [address] [place] [address] Otolaryngology02/15/24Team MemberRelationshipSpecialtyStart DateEnd Date Augustine Metz MD [address] [facility] [place] [address] PCP - GeneralInternal Medicine06/02/23 Christin Bolton MD [address] [place] [address] Referring PhysicianDermatology02/15/24 Augustine Freitas DO [address] [place] [address] Otolaryngology02/15/24Team MemberRelationshipSpecialtyStart DateEnd Date Augustine Metz MD [address] [facility] [place] [address] PCP - GeneralInternal Medicine06/02/23 Christin Bolton MD [address] [place] [address] Referring PhysicianDermatology02/15/24 Augustine Freitas DO [address] [place] [address] Otolaryngology02/15/24Team MemberRelationshipSpecialtyStart DateEnd Date Augustine Metz MD [address] [facility] [place] [address] PCP - GeneralInternal Medicine06/02/23 Christin Bolton MD [address] [place] [address] Referring PhysicianDermatology02/15/24 Augustine Freitas DO [address] [place] [address] Otolaryngology02/15/24Team MemberRelationshipSpecialtyStart DateEnd Date Augustine Metz MD [address] [facility] [place] [address] PCP - GeneralInternal Medicine06/02/23 Christin Bolton MD [address] [place] [address] Referring PhysicianDermatology02/15/24 Augustine Freitas DO [address] [place] [address] Otolaryngology02/15/24Team MemberRelationshipSpecialtyStart DateEnd Date Augustine Metz MD [address] [facility] [place] [address] PCP - GeneralInternal Medicine06/02/23 Christin Bolton MD [address] [place] [address] Referring PhysicianDermatology02/15/24 Augustine Freitas DO [address] [place] [address] Otolaryngology02/15/24 Team Status: Active Member Role Status Dates [...] Start: October 10, 2024 End: October 10, 2024Team MemberRelationshipSpecialtyStart DateEnd Date Augustine Metz MD [address] [facility] [place] [address] PCP - GeneralInternal Medicine06/02/23 Christin Bolton MD [address] [place] [address] Referring PhysicianDermatology02/15/24 Augustine Freitas DO [address] [place] [address] Otolaryngology02/15/24Team MemberRelationshipSpecialtyStart DateEnd Date Augustine Metz MD [address] [facility] [place] [address] PCP - GeneralInternal Medicine06/02/23 Christin Bolton MD [address] [place] [address] Referring PhysicianDermatology02/15/24 Augustine Freitas DO [address] [place] [address] Otolaryngology02/15/24Team MemberRelationshipSpecialtyStart DateEnd Date Augustine Metz MD [address] [facility] [place] [address] PCP - GeneralInternal Medicine06/02/23 Christin Bolton MD [address] [place] [address] Referring PhysicianDermatology02/15/24 Augustine Freitas DO [address] [place] [address] Otolaryngology02/15/24Team MemberRelationshipSpecialtyStart DateEnd Date Augustine Metz MD [address] [facility] [place] [address] PCP - GeneralInternal Medicine06/02/23 Christin Bolton MD [address] [place] [address] Referring PhysicianDermatology02/15/24 Augustine Freitas, DO [address] [place] [address] Otolaryngology02/15/24 Paulina Barboza, SHARDA [address] [facility]], [place] [address] Referring PhysicianOptometry12/28/24Team MemberRelationshipSpecialtyStart DateEnd Date Augustine Metz MD [address] [facility] [place] [address] PCP - GeneralInternal Medicine06/02/23 Christin Bolton MD [address] [facility] [address] [facility] [address] [place] [address] Referring PhysicianDermatology02/15/24 Augustine Freitas, DO [address] [place] [address] Otolaryngology02/15/24 Paulina Barboza OD [address] [facility]], [place] [address] Referring PhysicianOptometry12/28/24Team MemberRelationshipSpecialtyStart DateEnd Date Augustine Metz MD [address] [facility] [place] [address] PCP - GeneralInternal Medicine06/02/23 Christin Bolton MD [address] [place] [address] Referring PhysicianDermatology02/15/24 Augustine Freitas, DO [address] [place] [address] Otolaryngology02/15/24 Paulina Barboza, OD [address] [facility]], [place] [address] Referring PhysicianOptometry12/28/24Team MemberRelationshipSpecialtyStart DateEnd Date Augustine Metz MD [address] [facility] [place] [address] PCP - GeneralInternal Medicine06/02/23 Christin Bolton MD [address] [place] [address] Referring PhysicianDermatology02/15/24 Augustine Freitas, DO [address] [place] [address] Otolaryngology02/15/24 Paulina Barboza OD [address] [facility]3], [place] [address] Referring PhysicianOptometry12/28/24Team MemberRelationshipSpecialtyStart DateEnd Date Augustine Metz MD [address] [place] [address] PCP - GeneralInternal Medicine06/02/23 Christin Bolton MD [address] [facility] [address] [place] [address] Referring PhysicianDermatology02/15/24 Augustine Freitas DO [address] [place] [address] Otolaryngology02/15/24 Paulina Barboza OD [address] [place] [address] Referring PhysicianOptometry12/28/24 Team Status: Inactive Member Role Status Dates Augustine Metz DO Primary Care Provider Active Start: January 09, 2025 End: January 09stephen Metz DOAttending ProviderActiveStart: January 09, 2025 End: January 09, 2025 Team Status: Active Member Role Status Dates Augustine Metz DO Primary Care Provider Active Start: January 11, 2025 Maggy Correa ProviderActiveStart: January 11, 2025 Team Status: Active Member Role Status Dates Augustine Metz DO Primary Care Provider Active Start: February 06, 2025 Krzysztof Carmona DOAttending ProviderActiveStart: February 06, 2025 Team Status: Active Member Role Status Dates Augustine Metz DO Primary Care Provider Active Start: February 07, 2025 Esther Lantigua ProviderActiveStart: February 07, 2025 Team Status: Active Member Role Status Dates Augustine Metz DO Primary Care Provider Active Start: February 07, 2025 Lisa Lacey CMAAttending ProviderActiveStart: February 07, 2025 Team Status: Active Member Role Status Dates Augustine Metz DO Primary Care Provider Active Start: February 12, 2025 Esther RappAttending ProviderActiveStart: February 12, 2025 Team Status: Inactive Member Role Status Dates Augustine Metz DO Primary Care Provider Active Start: February 13, 2025 End: February 13enlouann Metz DOAttending ProviderActiveStart: February 13, 2025 End: February 13, 2025 Team Status: Active Member Role Status Dates Augustine Metz Primary Care Provider Active Start: February 22, 2025 Augustine Metz DOAttending ProviderActiveStart: February 22, 2025 Team Status: Inactive Member Role Status Dates Augustine Metz Primary Care Provider Active Start: April 02, 2025 End: April 02stephen Metz DOAttending ProviderActiveStart: April 02, 2025 End: April 02, 2025Team MemberRelationshipSpecialtyStart DateEnd Augustine Turpin DO [address] [place] [address] PCP - GeneralInternal Medicine06/02/23 Christin Bolton MD [address] [place] [address] Referring PhysicianDermatology02/15/24 Augustine Freitas DO [address] [place] [address] Otolaryngology02/15/24 Paulina Barboza OD [address] [place] [address] Referring PhysicianOptometry12/28/24Team MemberRelationshipSpecialtyStart DateEnd Augustine Turpin DO [address] [place] [address] PCP - GeneralInternal Medicine06/02/23 Christin Bolton MD [address] [place] [address] Referring PhysicianDermatology02/15/24 Augustine Freitas DO [address] [place] [address] Otolaryngology02/15/24 Paulina Barboza OD [address] [place] [address] Referring PhysicianOptometry12/28/24Team MemberRelationshipSpecialtyStart DateEnd Date Augustine Metz DO [address] [place] [address] PCP - GeneralInternal Medicine06/02/23 Christin Bolton MD [address] [place] [address] Referring PhysicianDermatology02/15/24 Augustine Freitas, DO [address] [place] [address] Otolaryngology02/15/24 Paulina Barboza OD [address] [place] [address] Referring PhysicianOptometry12/28/24 Team Status: Active Member Role/Relationship Status Dates Augustine Metz DO Primary Care Provider Active Team Status: Active Member Role/Relationship Status Dates Augustine Metz DO Primary Care Provider Active Start: May 07, 2025 Augustine Metz DOAttsoraya ProviderActiveStart: May 07, 2025 Team Status: Active Member Role/Relationship Status Dates Augustine Metz DO Primary Care Provider Active Start: June 26, 2025 Kingston Coppola DOAttsoraya ProviderActiveStart: June 26, 2025 Team Status: Inactive Member Role/Relationship Status Dates Augustine Metz DO Primary Care Provider Active Start: July 12, 2025 End: July 12stephen Metz DOAttending ProviderActiveStart: July 12, 2025 End: July 12, 2025Team MemberRelationshipSpecialtyStart DateEnd Date Augustine Metz DO [address] [facility] [place] [address] PCP - GeneralInternal Medicine06/02/23 Christin Bolton MD [address] [facility] [place] [address] Referring PhysicianDermatology02/15/24 Augustine Freitas DO [address] [place] [address] Otolaryngology02/15/24 Paulina Barboza OD [address] [facility]], [place] [address] Referring PhysicianOptometry12/28/24Team MemberRelationshipSpecialtyStart DateEnd Date Augustine Metz DO [address] [facility] [place] [address] PCP - GeneralInternal Medicine06/02/23 Christin Bolton MD [address] [facility] [place] [address] Referring PhysicianDermatology02/15/24 Augustine Freitas DO [address] [place] [address] Otolaryngology02/15/24 Paulina Barboza OD [address] [facility]], [place] [address] (work) Referring PhysicianOptometry12/28/24 Scheduled Active and Recently Administ ered Medications (unrecognized section and content) Medication Order// acetaminophen (TYLENOL) tablet 1,000 mg (COMPLETED) 1,000 mg, Oral, ONCE, 1 dose, On Tue03/15/22 at 0900, Administer 1 hour preop., Pre-op/Pre-Proc * 0932 (Given - Provider: Araseli Ron RN) acetaminophen (TYLENOL) tablet 1,000 mg 1,000 mg, Oral, EVERY 6 HOURS NON-STANDARD, First dose on Tue03/15/22 at 2000, Until Discontinued, , Post-op/Post-Proc * 2105 (Given - Provider: Bigrit Thakur RN) * 0309 (Given - Provider: Birgit Thakur RN) * 0811 (Given - Provider: Kirsten Crawford, RN) * 1449 (Given - Provider: Kirsten Crawford, RN) amLODIPine (NORVASC) tablet 2.5 mg (CANCELED) 2.5 mg, Oral, EVERY 12 HOURS, First dose on Tue03/15/22 at 2100, Until Discontinued, Hold for bloodpressure less than 1 20 mmHg * 210 (Given - Provider: Birgit Thakur RN - Comment: 125/69 M 92 HR 78) amLODIPine (NORVASC) tablet 5 mg 5 mg, Oral, EVERY 12 HOURS, First dose (after last modification) on Tue03/16/22 at 0815, Until Discontinued, Hold for blood pressure less than 1 20 mmHg * 0824 (Given - Provider: Kirsten Crawford, ROMAINE) atorvastatin (LIPITOR) tablet 10 mg 10 mg, Oral, DAILY AT BEDTIME, First dose on Tue03/15/22 at 2100, Until Discontinued * 210 (Given - Provider: Birgit Thakur RN) carveDILOL (COREG) tablet 6.25 mg 6.25 mg, Oral, EVERY 12 HOURS, First dose on Tue03/15/22 at 2100, Until Discontinued, * 210 (Given - Provider: Birgit Thakur RN - Comment: 125/69 M 92 HR 78) * 0810 (Given - Provider: Kirsten Crawford RN) ceFAZolin (ANCEF) 2 g in dextrose 100 mL premix IVPB (COMPLETED) 2 g, Intravenous, Administer over 30 Minutes, EVERY 8 HOURS NON-STANDARD, 2 doses, First dose on Tue03/15/22 at 2300, Last dose on Tue03/16/22 at 0700, Post-op/Post-Proc * 2357 ($$New Bag$$ - Provider: Birgit Thakur, RN) * 0309 (Stopped - Provider: Birgit Thakur, RN) * 0814 ($$New Bag$$ - Provider: Kirsten Crawford, RN) * 0845 (Stopped - Provider: Regina Rios, ROMAINE) clonazePAM [...] respiratory drive or mental status after anesthesia * 2105 (Given - Provider: Birgit Thakur, RN) dexAMETHasone (DECADRON) injection 10 mg (COMPLETED) 10 mg, Intravenous, ONCE, 1 dose, On Tue03/16/22 at 1400, 24 hours post op, Post-op/Post-Proc * 1450 (Given - Provider: Kirsten Crawford, RN) docusate (COLACE) capsule 100 mg 100 mg, Oral, 2 TIMES DAILY, First dose on Tue03/15/22 at 1800, Until Discontinued, Post-op/Post-Proc * 1807 (Given - Provider: Kirsten Crawford, RN) * 0810 (Given - Provider: Kirsten Crawford, RN) * 1700 (Canceled Entry - Provider: System Discharge - Comment: Automatically canceled at discontinue of medication order) ferrous sulfate tablet 325 mg 325 mg, Oral, DAILY, First dose on Tue03/16/22 at 0900, Until Discontinued * 0811 (Given - Provider: Kirsten Crawford, RN) glucose chewable tablet CHEW [...] to the hypoglycemia management protocol on Ellucid: E-EO-Bdgeiuaprpec Management Protocol insulin regular (HumuLIN R;NovoLIN R) injection(Linked Group 1) Subcutaneous, 4 TIMES DAILY WITH MEALS & AT BEDTIME, First dose on Tue03/15/22 at 1300, Until Discontinued, Sliding Scale parameters: Blood glucose under 70 = call physician; 151 - 200 = 1 units;201 - 250 = 2 units; 251 - 300 = 3 units; 301 - 350 = 4 units; 351 - 400 = 5 units; Over 400 = callphysician. * 1421 (Not Given - Provider: Araseli Ron RN - Reason: NPO) * 1757 (Not Given - Provider: Araseli Ron RN - Reason: Patient/family refused) * 2108 (Given - Provider: Birgit Thakur RN - Comment: BS 206 2u givenpeanut butter crackers at bedside) * 0813 (Given - Provider: Kirsten Crawford, RN) * 1127 (Given - Provider: Kirsten Crawford, RN) * 1700 (Canceled Entry - Provider: System Discharge - Comment: Automatically canceled at discontinue of medication order) lisinopril (PRINIVIL) tablet 10 mg 10 mg, Oral, DAILY, First dose on Tue03/16/22 at 0900, Until Discontinued, Hold if blood pressure less than 1 20 mmHg * 0810 (Given - Provider: Kirsten Crawford, RN) pantoprazole (PROTONIX) tablet DR 40 mg 40 mg, Oral, DAILY EARLY EVENING, First dose on Tue03/15/22 at 1800, Until Discontinued, Indications: Inpt Stress Ulcer Prophylaxis * 1753 (Given - Provider: Araseli Ron, ROMAINE) propafenone (RYTHMOL) tablet 150 mg 150 mg, Oral, EVERY 8 HOURS, First dose (after last modification) on Tue03/15/22 at 1800, Until Discontinued, Administer every 8 hours according with patient home schedule if possible * 1753 (Given - Provider: Araseli Ron RN) * 0309 (Given - Provider: Birgit Thakur, RN) * 1448 (Given - Provider: Kirsten Crawford, RN - [...] on Tue03/15/22 at 1442, Until Tue03/15/22 at 1442,89.26 mL, To be mixed by pharmacy NOT for IV use, Intra-op/Intra-Proc * 1442 (Given - Provider: Amari Quesada RN) tranexamic acid (LYSTEDA) tablet 1,950 mg (COMPLETED) 1,950 mg, Oral, ONCE, 1 dose, On Tue03/15/22 at 0900, Administer 2 hours preop, Pre-op/Pre-Proc * 0932 (Given - Provider: Araseli Ron RN) warfarin (COUMADIN) tablet 5 mg (COMPLETED) 5 mg, Oral, ONCE, 1 dose, On Tue03/15/22 at 1830, * 1835 (Given - Provider: Kirsten Crawford, RN) Medication Order// ropivacaine (NAROPIN) 0.2 % On-Q pump 750 mL Surgical Site, CONTINUOUS, Starting on Tue03/15/22 at 1645, Until Tue03/16/22 at 1703, Recovery to Continue * 1656 ($$New Bag$$ - Provider: Fadumo Keita RN) * 1956 (Rate/Dose Verify - Provider: Birgit Thakur, RN) * 2356 (Rate/Dose Verify - Provider: Birgit Thakur, ROMAINE) * 0310 (Rate/Dose Verify - Provider: Birgit Thakur, ROMAINE) * 0715 (Rate/Dose Verify - Provider: Regina Rios, RN - Comment: dial set at 2mg/mlverified during bedside report) * 1146 (Rate/Dose Verify - Provider: Regina Rios RN - Comment: dial set at 2ml/hr) sodium chloride 0.9% IV solution (CANCELED) Intravenous, at 100 mL/hr, CONTINUOUS, Starting on Tue03/15/22 at 0900, Until Tue03/16/22 at 0904, Pre-op/Pre-Proc * 0932 ($$New Bag$$ - Provider: Araseli Ron RN) * 1400 (Pump Association - Provider: Araseli Ron RN) * 1450 ($$New Bag$$ - Provider: Pankaj Eric APRN-DANCE STUDIO MANAGER) * 1606 (Paused - Provider: Chino Puga CRNA - Comment: Switch to gravity) * 1607 (Restarted - Provider: Chino Puga CRNA) * 1956 (Stopped - Provider: Birgit Thakur RN - Comment: Other order of NS @ 100ml/hr is infusing. Dup order) * 0730 (Stopped - Provider: Regina Rios RN) sodium chloride 0.9% IV solution Intravenous, at 100 mL/hr, CONTINUOUS, Starting on Tue03/15/22 at 1800, Until Tue03/16/22 at 1703, Convert IV to PRN adapter if adequate oral intake, Post-op/Post-Proc * 1752 ($$New Bag$$ - Provider: Araseli Ron RN) * 1956 (Rate/Dose Verify - Provider: Birgit Thakur RN) * 2356 (Rate/Dose Verify - Provider: Birgit Thakur RN) * 0310 ($$New Bag$$ - Provider: Birgit Thakur RN) * 0715 (Rate/Dose Verify - Provider: Regina Rios RN) * 1146 (Stopped - Provider: Regina Rios RN) Medication Order03/14// bisacodyl (DULCOLAX) suppository 10 mg 10 mg, Rectal, DAILY NEEDED, Starting on Tue03/15/22 at 1750, Until Tue03/16/22 at 1703, constipation, Post-op/Post-Proc ceFAZolin (ANCEF) 2 g in dextrose 100 mL premix IVPB (COMPLETED) 2 g, Intravenous, Administer over 30 Minutes, DIRECTOR WORKERS COMPENSATION TO PROCEDURE, 1 dose, Starting on Tue03/15/22at 0849, Until Discontinued, Other, Pre-operative antibiotic, For 15 Minutes, Pre-op/Pre-Proc * 1440 (Given - Provider: Pankaj Eric APRN-DANCE STUDIO MANAGER) dextrose 10% IV solution 250 mL(Linked Group 1) 250 mL, Intravenous, ADMINISTER DIRECTED, Starting on Tue03/15/22 at 1254, Until Tue03/16/22 at 1703, Blood Glucose LESS THAN 70 mg/dL, If blood sugar is less than 70 mg/dL, give Dextrose 10% (IV Large-bore IV preferred). Administer at a rate of 999 mL/hr. Notify physician and repeat blood sugarin 20 minutes. May repeat dextrose X1 if blood sugar less than 60 mg/ml. If unresponsive call PICTURE ENLARGER HYDROmorphone (DILAUDID) injection 0.5 mg 0.5 mg, Intravenous, EVERY 4 HOURS NEEDED, Starting on Tue03/15/22 at 1750, Until Tue03/16/22 [id number], Severe Pain, Post-op/Post-Proc ondansetron 4mg/2ml (ZOFRAN) injection 4 mg 4 mg, Intravenous, EVERY 4 HOURS NEEDED, Starting on Tue03/15/22 at 1750, Until Tue03/16/22 at 1703, Nausea / Vomiting, Post-op/Post-Proc oxyCODONE (ROXICODONE) tablet 5-10 mg 5-10 mg, Oral, EVERY 4 HOURS NEEDED, Starting on Tue03/15/22 at 1750, Until Tue03/16/22 at 1703,moderate-severe pain, If pain unrelieved with oxycodone, contact pharmacist to enter order for Oxycodone ER 10mg PO Q12H for 3 days, Post-op/Post-Proc senna-docusate (SENOKOT-S) 8.6-50 MG per tablet 2 tablet 2 tablet, Oral, 2 TIMES DAILY NEEDED, Starting on Tue03/15/22 at 1750, Until Tue03/16/22 at 1703, constipation, Post-op/Post-Proc sodium chloride 0.9 % irrigation NEEDED, Starting on Tue03/15/22 at 1443, Until Tue03/16/22 at 1703, Intra-op/Intra-Proc * 1443 (Given - Provider: Pastor Bedoya MD - Comment: given to [facility]) sodium phosphate w/sodium biphosphate (FLEETS) enema 1 enema 1 enema, Rectal, DAILY NEEDED, Starting on Tue03/15/22 at 1750, Until Tue03/16/22 at 1703, Refractory Constipation, use per package instructions, Post-op/Post-Proc vancomycin (VANCOCIN) injection NEEDED, Starting on Tue03/15/22 at 1443, Until Tue03/16/22 at 1703, Intra-op/Intra-Proc * 1443 (Given - Provider: Pastor Bedoya MD - Comment: given to [facility]) zolpidem (AMBIEN) tablet 5 mg 5 mg, Oral, DAILY AT BEDTIME NEEDED, Starting on Tue03/15/22 at 1750, Until Tue03/16/22 at 1703,Sleep, Post-op/Post-Proc Order Group 1: insulin regular (HumuLIN R;NovoLIN [...] mg/dL: give 8 chew tabs. Notify physician andrepeat blood glucose in 20 minutes. May repeat treatment x 1 if blood glucose less than 60 mg/dL. For alternative treatment options (juice, etc.) refer to the hypoglycemia management protocol on [employer]: S-PC-Umwazedblzdq Management Protocol
And dextrose 10% IV solution [...] less than 60 mg/ml. If unresponsive call PICTURE ENLARGER
And NOTIFY PHYSICIAN, Blood Glucose LESS THAN 70 mg/dl or greater than 400 mg/dl (CANCELED) Routine, CONTINUOUS, Starting on Tue03/15/22 at 1255, Until Specified
Who to Notify: SHOULDER JOINER/Physician
For all Blood Glucose LESS THAN 70 mg/dl, or greater than 400 mg/dl notify SHOULDER JOINER/Physician Goals (unrecognized section and content) Goals may [...] BE BASED ON THE PRIMARY CLINICAL RECORDS. [employer] provides no warranty or guarantee of the accuracy or completeness of information in this document.
[2025-08-15 08:05] LABS: Hematocrit 43.4 % (42.0-54.0); Hemoglobin 14.5 g/dL (14.0-18.0); Immature Granulocytes Abs Auto 0.01 10^3/uL (0.00-0.03); Immature Granulocytes Pct Auto 0.2 % (0.0-0.5); Lymphocytes Absolute Auto 1.7 10^3/uL (1.2-3.8); Mean Corpuscular HGB Conc 33.4 g/dL (29.9-35.2); Mean Corpuscular Hemoglobin 31.6 pg (25.9-34.0); Mean Corpuscular Volume 94.6 fL (80.0-94.0); Platelet Count 146 10^3/uL (150-450); Red Blood Count 4.59 10^6/uL (4.70-6.10); White Blood Count 6.1 10^3/uL (4.0-11.0)
[2025-08-15 08:09] LABS: Microalbum Creatinine Ratio Ur 28.3 mg/g (0.0-29.9)
[2025-08-15 08:39] LABS: Alanine Aminotransferase 22 U/L (16-63); Albumin Globulin Ratio 1.1; Albumin Level 3.5 g/dL (3.4-5.0); Alkaline Phosphatase 90 U/L (46-116); Anion Gap 12.8; Aspartate Amino Transferase 17 U/L (15-37); Blood Urea Nitrogen 14.0 mg/dL (7.0-18.0); Calcium 8.5 mg/dL (8.5-10.1); Carbon Dioxide 29.6 mmol/L (21.0-32.0); Chloride 105 mmol/L (98-107); Cholesterol 107 mg/dL (<=200); Estimated GFR (African America 60 (>=60 mL/min/1.73m^2); Estimated GFR (Non-African Ame 49 (>=60 mL/min/1.73m^2); Globulin 3.3 g/dL; Glucose 159 mg/dL (74-106); HDL Cholesterol 50 mg/dL (40-60); Potassium 4.4 mmol/L (3.5-5.1); Sodium 143 mmol/L (136-145); Thyroid Stimulating Hormone 3.822 uIU/mL (0.358-3.740); Total Protein 6.8 g/dL (6.4-8.2); Triglycerides 75 mg/dL (<=150); VLDL CHOLESTEROL 15.0 mg/dL
[2025-08-15 10:34] LABS: Ferritin 37.0 ng/mL (26.0-388.0)
== END 2025-08-15 07:30 | disposition home or self-care (01) ==
LOC: LAB 07:31
PROVIDERS: PCP Internal Medicine; Visit Provider Internal Medicine
DX: D50.0 Iron deficiency anemia secondary to blood loss (chronic) (principal); E11.65 Type 2 diabetes mellitus with hyperglycemia; N18.31 Chronic kidney disease, stage 3a; E78.00 Pure hypercholesterolemia, unspecified; Z12.5 Encounter for screening for malignant neoplasm of prostate; E03.9 Hypothyroidism, unspecified; T46.2X1A Poisoning by other antidysrhythmic drugs, accidental (unintentional), initial encounter; R53.83 Other fatigue; E03.2 Hypothyroidism due to medicaments and other exogenous substances; I12.9 Hypertensive chronic kidney disease with stage 1 through stage 4 chronic kidney disease, or unspecified chronic kidney disease
CPT/HCPCS: 36415; 80053; 80061; 82043; 82570; 82728; 83036; 84443; 85025; G0103

== ENCOUNTER 2025-09-12 09:03 | Outpatient (OUT) | payer MEDICARE, OTHER, SELFPAY ==
--- OUTSIDE RECORDS SUMMARY | 2025-09-12 09:06 | XMS_ITS | Clinical Summary ---
Author Organization [facility] Healthcare Address [address] [place] [address] Care Team Providers Care Field Recorder Name Role Phone Augustine Frost Primary Care Provider [phone] PatienceAugustine quesada Laure DO Unavailable Paulina Barboza OD Unavailable Allergies Active AllergyReactionsCriticalityNoted DateCommentsIodineAnaphylaxis,Swelling High08/31/2009 Other Reaction(s): Unknown, Unknown Mouth swelled shut Mouth swelled shut Mouth swelled shut DyaxmXdmvb11/05/2023Penicillin SChbin2010/20/2012 Other Reaction(s): Unknown, Unknown Penicillin [id number]/06/1963 Other Reaction(s): Unknown Shellfish AllergySwelling,YwtutXcar22/06/2009Shellfish Protein-Containing Drug NbsclgvhWkpriuxk14/25/2013Sulfa AntibioticsRash,FxkrmicvFuc40/06/1993 Other Reaction(s): Unknown Medications MedicationSigDispense QuantityRefillsLast FilledStart DateEnd DateStatus aspirin 81 MG EC tablet Take 1 tablet by mouth DailyActive atorvastatin (Lipitor) 10 MG tablet Take 1 tablet by mouth in the eveningActive omeprazole (PriLOSEC) [address] capsule 04/22/2022ctive propafenone (Rythmol) 150 MG tablet Take by mouth07/06/2022ctive traZODone (Desyrel) 50 MG tablet Take 1 tablet by mouth at whgyzqi5804/30/2022ctive benzonatate (Tessalon) 100 MG capsule Take 100 mg by mouth as needed in the morning and 100 mg as needed at noon and 100 mg as needed in the evening.03/04/2024Active acetaminophen (Tylenol) 500 MG tablet Take by mouth every 6 (six) hours if lqejzb9807/05/2023ctive gabapentin (Neurontin) 300 MG capsule 01/22/2023ctive HYDROcodone-acetaminophen (Marcellus) 7.5-325 MG tablet Active levETIRAcetam (Keppra) 500 [...] day for 10 days 20 capsule 5Active Additional Information Patient not taking.Reported on 08/19/2025 benazepril (Lotensin) 20 MG tablet 09/20/2024ctive Nnilqstmdyk-Vpcngpib-Dmfajdcbj 1-0.5-0.075 % solution Indications:Age-related nuclear cataract of both eyesAdminister 1 drop into affected eye(s) in the morning and 1 drop at noon and 1 drop in the evening and 1 drop before bedtime. 10 mL 5Active Additional Information Patient not taking.Reported on 08/19/2025 fluorouracil (Efudex) 5 % cream Indications:Actinic keratosisApply topically in the morning and before bedtime. Apply to directed areas on face, scalp, ears, and back of the hands, bid x 14 days. 40 g 501/ctive glimepiride (Amaryl) 1 MG tablet Take 1 mg by mouth in the morning. Take before meals.Active levothyroxine (Synthroid, Levoxyl) 75 MCG tablet Take by mouth in the morning. Take before meals.Active Active Problems ProblemNoted DateDiagnosed MjlyWgwvffzpsxn72/28/2024LMD (periodic limb movement disorder)06/23/2024rimary oamuxuns73/28/2024AD (coronary artery disease) 06/23/2024aytime uyxyjgfxrqhnkgv92/28/6952Gpabcsumznebbmpjkoz10/27/2024Obesity 03/22/2024Type 2 diabetes mellitus with gjxycvblejqik44/27/2024asal cell carcinoma of face02/15/2024asal cell carcinoma of left side of neck02/15/2024 Calculus of nlsdjcpczza04/22/2024alculus of fvmvip9302/15/2024cute cholangitis due to calculus of bile duct with pcewbtnuefs73/16/2024dvanced atrophic nonexudative 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 without subfoveal veqwgfnybol50/02/2024enign prostatic hyperplasia with urinary obstruction 09/06/2023alculus of ibhiix9109/06/2023iabetes /12/2023Dry eyes 08/29/20236231Dqmmkgdkis47/19/2022ile duct rymttbxrlfv69/25/2013 Resolved Problems ProblemNoted DateDiagnosed DateResolved DateAbrasion of ear canal07/11/2024 10/17/20246679Lrhkfh24hest painFamily history of malignant neoplasm of skinGlycosuria Melanoma in situ of facerthritis Uutqypjzstbcmkpstopk86/22/202405/22/2024Squamous cell carcinoma of forehead resence of Amulet left atrial appendage closure device Stage 2 chronic kidney ffutmza67ge- related nuclear cataract of both eyesPericardial effusion (HHS-HCC)Family history of malignant neoplasm of skin GlaucomaGlycosuria1 Nfrmiegbcdb77Left corneal gcprinas85Exposure bnyuqrubn05orneal jkxgvbsf76Exudative age- related macular degeneration of right eye with active choroidal awiuyahdkrmsodofso48/08/202309/13/2024Exudative age-related macular degeneration of left eye with active choroidal tumrlrukgeurssukez69/08/202309/13/2024 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 ON COUMADIN. 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) 08/19/2025amboo flowsheet [facility] [address] [place] [phone] Meaghan Torres MD 08/19/20250253Njicwa99/24/2025 9:00 AM EDTOffice Visit [facility] [address] [place] [phone] Lamin Wynne, DO 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 (Primary Dx); Type 2 diabetes mellitus with hyperglycemia, without long-term current use of insulin (HCC); Dry eyes07/19/2025amb flowsheet [facility] [address] [place] [phone] Lamin Wynen DO 07/19/20251561Roexlk24/16/2025Results Follow-Up [facility] [place] [facility] [address] [place] [phone] Obdulia Shah, DEQUAN-BUNCH BREAKER Dermatopathology exam07/05/2025Telephone [facility] [place] [facility] [address] [place] [phone] Amberly Sims LPN 07/04/2025 9:10 AM EDTOffice Visit [facility] [place] [facility] [address] [place] [phone] Obdulia Shah, GUITAR PLAYER-BUNCH BREAKER Seborrheic keratosis; Lentigines; Capillary angioma; Telangiectasia of face; History of malignant melanoma of skin; History of basal cell carcinoma; Melanocytic nevi of trunk; Actinic keratosis; Neoplasm of unspecified behavior of bone, soft tissue, and skin07/04/2025 External Result Encounter [facility] External Department Unsolicited Obdulia ShahEDYTA 07/04/2025amboo flowsheet [facility] [address] [place] [address] Obdulia ShahEDYTA 07/04/2025Travelfrom Last 3 Months Immunizations ImmunizationAdministration DatesNext DueInfluenza, High Dose Seasonal, Preservative Free07/09/2024,07/09/2020,07/25/2017,07/07/2016Influenza, Injectable, MDCK, preservative free05/27/2015Influenza, Seasonal, Quadrivalent, Estlghewgw68/04/2022Influenza, trivalent, dcosbzwtsi14/20/2021,07/12/2018 Pneumococcal Polysaccharide WVRT9205Zoster, Qxnqadeywvm37/08/2023, 01/01/2023Zoster, live07/18/2013 Family History Medical HistoryRelationNameCommentsCoronary artery diseaseFatherDiabetesFather Heart diseaseFatherAneurysmMotherCerebral aneurysmMotherStrokeMotherDiabetes Paternal GrandmotherMultiple myelomaNeg HxRelationNameStatusCommentsFather DeceasedMotherDeceasedPaternal Grandmother Social History Tobacco UseTypesPacks/DayYears UsedDateSmoking Tobacco: FormerCigarettes Tobacco Cessation:Counseling Given: Not Answered Alcohol UseStandard Drinks/WeekCommentsNever0 (1 standard drink = 0.6 oz pure alcohol)caffeine: sodaSex and Gender InformationValueDate RecordedSex Assigned at BirthNot on fileLegal QaxRqim0612/08/2022 6:49 PM EDTGender IdentityNot on file Sexual OrientationNot on file Last Filed Vital Signs Vital SignReadingTime TakenCommentsBlood Beyvynzt679/6401 12:55 PM EST Dycsi2752/04/2025 8:09 AM ESTTemperature--Respiratory Rate--Oxygen Cetuooqtoe10% 10/03/2024 8:09 AM ESTInhaled Oxygen Concentration--Rierkk514 kg (250 lb) 01/01/2025 10:01 AM WMBTmfwnl761.9 cm (6')01/01/2025 10:01 AM EDTBody Mass Index 33.9101/01/2025 10:01 AM EDT Plan of Treatment DateTypeDepartmentCare Team (Latest Contact Info)Srhayawwtom08/06/2026 9:45 AM ESTOffice Visit [facility] [address] [place] [address] Lamin Wynne DO [address] [place] [address] 01/06/2026 9:15 AM EDTOffice Visit [facility] [address] [place] [address] Obdulia Shah, GUITAR PLAYER-BUNCH BREAKER [address] [place] [address] Health MaintenanceDue DateLast DoneCommentsCOVID-19 Vaccine ( season), 08/21/2024, 12/27/2023, Additional history exists Pneumococcal Vaccine: 65+ KwgkgTmkdfloim65/23/2015, 12/25/2013, 08/28/2013 Influenza PjoqepdCvveztptp79/17/2025, 07/09/2024, 07/08/2023, Additional history exists Procedures Procedure NamePriorityDate/TimeAssociated DiagnosisCommentsDESTRUCTION OF LESION Ttblpfe7308/19/2025 9:07 AM EST 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 Informed consent: discussed and consent obtained ?? Informed consent comment: ??The risks of the procedure were discussed, including, but not limited to risks of scarring, darker or head wood grinder pigmentary changes, recurrence, infection, and incomplete removal Timeout: ??patient name, date of , surgical site, and procedure verified Timeout comment: ??Patient and provider identified site. Site was marked. Photo was taken and shown to patient, patient verified this is the correct site. Procedure prep: ??Patient was prepped and draped in usual sterile fashion Prep type: ??Chlorhexidine Anesthesia: the lesion was anesthetized in a standard fashion ?? Anesthetic: ??1% lidocaine w/ epinephrine 1-100,000 buffered w/ 8.4% NaHCO3 Curettage performed in three different directions: Yes ?Electrodesiccation performed over the curetted area: No ?? Curettage cycles: ??3 Lesion length (cm): ??0.7 Lesion width (cm): ??0.5 Margin per side (cm): ??0 Final wound size (cm): ??0.7 Hemostasis achieved with: ??aluminum chloride Outcome: patient tolerated procedure well with no complications ?? Post-procedure details: wound care instructions given ?? Post-procedure details comment: ??Post-procedure instructions were given verbally and in writing. The office will be contacted if the lesion fails to resolve despite treatment, or if a side effect develops such as abnormal crusting, scabbing, reddness, discharge, or tenderness. Additional details: ??Amount of lidocaine used: 2.5 CC Previous accession number: [id number] Authorizing ProviderResult TypeResult StatusMeaghan Damon Torres MDDERM PROCEDURE ORDERABLESFinal Result * OCT, Retina - OU - Both [...] Lesion biopsy (07/04/2025 9:19 AM EDT) Narrative Deep MarissaLISA - 07/04/2025 9:19 AM EDT Type of [...] lidocaine used: 0.5 cc Authorizing ProviderResult TypeResult StatusObdulia Shah GUITAR PLAYER-CNPDERM PROCEDURE ORDERABLESFinal Result * Dermatopathology exam (07/04/2025 12:00 AM EDT)ComponentValueRef RangeTest MethodAnalysis TimePerformed AtPathologist SignatureSPECIMEN TYPE SPECIMEN: RIGHT UPPER ARM - POSTERIOR [facility] ICD10 CodeD04.60AUR[facility]A DIAGNOSTICSPROTOCOLF - FLATAURORA DIAGNOSTICSFinal DiagnosisSQUAMOUS CELL CARCINOMA IN-SITU. COMMENT: This material was reviewed with Dr. Almeida. [facility]NO[facility]ICSGross TextAURORA DIAGNOSTICSMicroscopic DescriptionMicroscopic examination performed.[facility] MQLQMGVKVLCHMB70015*1[facility] DIAGNOSTICSSpecimen (Source)Anatomical Location / LateralityCollection Method / VolumeCollection TimeReceived Time/ Narrative Authorizing ProviderResult TypeResult StatusNatalie A Alyssa GUITAR PLAYER-CNPLAB PATHOLOGY ORDERABLESFinal ResultPerforming OrganizationAddressCity/State/ZIP CodePhone Number [facility] from Last 3 Months Insurance Care Teams Team MemberRelationshipSpecialtyStart DateEnd Date Augustine Frost DO [address] [place] [phone] PCP - GeneralInternal Medicine06/02/23 Augustine Freitas DO [address] [place] [address] Otolaryngology02/15/24 Paulina Barboza OD [address] [place] [address] Referring PhysicianOptometry12/28/24
--- OUTSIDE RECORDS SUMMARY | 2025-09-12 09:06 | XMS_ITS ---
Author Organization [facility] Address [address] [place] [address] Care Team Providers Care Cloth Neutralizer Name Role Phone Augustine Frost DO Primary Care Provider [phone] Active Problems ProblemNoted DateDiagnosed DateAbrasion of ear canal07/11/20249487Wwmgnq49/16/2024 Chest pain07/11/2024AD (coronary artery disease)06/23/2024aytime jzaxowmvjvmtchm49/28/3434Nxpavwwegza14/28/2024rimary gvrnhezw78/28/2024LMD (periodic limb movement disorder)06/23/20242872Nnmixrtdykckxrenhrd14/27/2024Obesity 03/22/2024Type 2 diabetes mellitus with geffsjxbygqgo76/27/2024asal cell carcinoma of face4Calculus of yqvlebususb34/22/2024alculus of kidney 02/15/2024cute cholangitis due to calculus of bile duct with obstruction resence of Amulet left atrial appendage closure device 02/09/2024Stage 2 chronic kidney kpzgbzn5501/28/2024ge-related nuclear cataract of both eyes/aroxysmal atrial ysfnkkxuqpvf85/22/2024 Pericardial bwjbyxln06/22/2024enign prostatic hyperplasia with urinary mauucfrfcep13alculus of ncjiva06iabetes oaqqfgmf11Family history of malignant neoplasm of skin laucomalycosuria Nzgqphpvrlg13ry eyesExposure keratitis Left corneal yhdkxvrs85Exudative age- related macular wmsucqpitqul20Fall01/22/2023Subdural hematoma 01/21/20238937Sngizopstyl53/29/2022Gastroesophageal reflux disease without prqfsptlxuu35/20/8104Xetamdhapzhh87/20/2022Mixed hoacdsugwkfccs47/20/2022 Restless leg irvfzxho65/20/2022/P total knee arthroplasty, right03/15/2022tage 3a chronic kidney ifxoyyq7103/15/2022Type 2 diabetes mellitus without complication, without long-term current use of mjsiiio8903/15/2022rrhythmia 02/11/2022Hypertensive /15/2014trial stcnaecdlhmn51/23/2013Mitral valve bggiilsl64/23/2013Obstructive sleep apnea mbxfewdq90/23/2013ile duct /25/2013 Current Treatment and Therapy Plans No current plan information found. Past Treatment and Therapy Plans No past plan information found. Lifetime Dose Tracking * ChemicalLifetime DoseAutomatic EntryManual EntryFluoro Time17 minutes0 minutes 17 minutesAir Ruszt179.81 mGy0 bHi539.81 mGyDose Area Jngcdlh39,806 mGy-cm20 mGy-cm279,806 mGy-cm2
--- OUTSIDE RECORDS SUMMARY | 2025-09-12 09:06 | XMS_ITS | Clinical Summary ---
Author Organization [facility] Address [address], [address] [place] [address] Care Team Providers Care Process Technician Name Role Phone Unavailable Primary Care Provider [...]
--- OUTSIDE RECORDS SUMMARY | 2025-09-12 09:06 | XMS_ITS | Clinical Summary ---
Author Organization [facility] Address [address] [place] [address] Care Team Providers Care Surgical Scheduler Name Role Phone Augustine Frost DO Primary Care Provider [phone] Allergies Active AllergyReactionsCriticalityNoted DateCommentsIodineAnaphylaxisHigh 08/31/20092091PdirtUvnra96/05/4729CrdourivsonPvzolHkkg16/06/1963Shellfish Containing QutcrjsdLcaskAuzh42/06/2009Sulfa (Sulfonamide Antibiotics)OkphFub8308/31/1993 Medications MedicationSigDispense QuantityRefillsLast FilledStart DateEnd DateStatus aspirin [...] by mouth in the morning. 90 tablet 6Active glimepiride (Amaryl) 1 mg tablet Take 1 mg by mouth before breakfast.5Active levothyroxine (Synthroid, Levoxyl) 75 mcg tablet Take 75 mcg by mouth in the morning.5Active carvedilol (Coreg) 12.5 mg tablet Indications:Essential hypertensionTAKE 1 TABLET BY MOUTH EVERY MORNING WITH BREAKFAST AND 1 TABLET EVERY EVENING WITH EVENING MEAL 90 tablet 5Active carvedilol (Coreg) 12.5 mg tablet Indications:Essential hypertensionTAKE 1 TABLET BY MOUTH EVERY MORNING WITH BREAKFAST AND TAKE ONE TABLET BY MOUTH EVERY EVENING WITHEVENING MEAL 90 tablet Discontinued Active Problems ProblemNoted DateDiagnosed DateAbrasion of ear canal07/11/20244171Ccyajf75/16/2024 Chest pain07/11/2024AD (coronary artery disease)06/23/2024aytime jwxmqpggqnlwefz26/28/5818Vceiizwltst51/28/2024rimary tnktipfg36/28/2024LMD (periodic limb movement disorder)06/23/20243978Wurvhcrylqtbkhutmfq84/27/2024Obesity 03/22/2024Type 2 diabetes mellitus with zzdztekpkckdi74/27/2024asal cell carcinoma of face02/15/2024alculus of avmzczxxvvs31/22/2024alculus of kidney 02/15/2024cute cholangitis due to calculus of bile duct with obstruction resence of Amulet left atrial appendage closure device 02/09/2024Stage 2 chronic kidney ztdrazc9501/28/2024ge-related nuclear cataract of both eyesaroxysmal atrial vpurfxasvxvj84/22/2024 Pericardial txwjsjag98/22/2024enign prostatic hyperplasia with urinary ruxsfvgjoav16alculus of dqpcjd35iabetes thorqdnw75Family history of malignant neoplasm of skin laucomalycosuria/08/2023 Jpgxcanqnoo80ry eyesExposure keratitis Left corneal jfbooztd88/08/2023Exudative age- related macular ouepqphuvvex02Fall01/22/2023Subdural hematoma 01/21/20239048Hhaqhmqwgfy27/29/2022Gastroesophageal reflux disease without fpuojauzncj45/20/9595Anpbzqqpwahj00/20/2022Mixed wjtqsjjqsqsaay06/20/2022 Restless leg gvugjwot02/20/2022/P total knee arthroplasty, right03/15/2022tage 3a chronic kidney qcmmyaj6103/15/2022Type 2 diabetes mellitus without complication, without long-term current use of skyytfa2603/15/2022rrhythmia 02/11/2022Hypertensive rveasgvs90/15/2014trial rsdxqewdhfob61/23/2013Mitral valve ravqjixq18/23/2013Obstructive sleep apnea /23/2013ile duct vavffgysstc66/25/2013 Encounters DateTypeDepartmentCare ZjouPbjgublutuf83/26/2025Refill [facility] [address] [place] [address] Maggy Murphy MD Essential kpexqionlfgw29/30/2025 11:20 AM EDTOffice Visit [facility] [address] [place] [address] Bianka Paul CNP Left arm pain (Primary [...] (1 standard drink = 0.6 oz pure alcohol)[facility] UtilitiesAnswerDate RecordedIn the past 12 months has the [employer], gas, oil, or water company threatened to [...] to sleep or slept in ashelter (including now)?No 01/24/2024Hunger Vital SignAnswerDate RecordedWithin the past 12 months, you worried that your food would run out before you got the money to buymore.Never true01/24/2024an Out of Food in the Last YearNot on file01/24/2024Sex and Gender InformationValueDate RecordedSex Assigned at RjzoaSgaw97/30/2024 10:37 AM EDTLegal IhyKyfg6203/24/2022 11:11 PM EDTGender EqeuudoyZmhq34/30/2024 10:37 AM EDTSexual OrientationHeterosexual or Penxmsxq17/30/2024 10:37 AM EDT Last Filed Vital Signs Vital SignReadingTime TakenCommentsBlood Dcsqozse742/66006/25/2025 12:00 PM EDT Mhnea1895 12:00 PM VNSYdnqexcibti22.8 ??C (98.2 ??F)01/29/2024 12:15 PM EDTRespiratory Wjxi430504/12/2024 2:27 PM EDTOxygen Ppddgxqcvl74%06/25/2025 12:00 PM EDTInhaled Oxygen Concentration--Ktxnpd793 kg (237 lb)06/25/2025 12:00 PM EDT Yumijx569.9 cm (6')06/25/2025 12:00 PM EDTBody Mass Index32.14006/25/2025 12:00 PM EDT Plan of Treatment Health MaintenanceDue DateLast DoneCommentsMedicare Annual Wellness (AWV) 1945Diabetes: Retinopathy Qzarjfyur10/28/1956Depression Screening 1958Diabetes: Urine Protein Mieuzebmf26/28/1965Adult Ucrctvl1901/22/1968Fall Risk Ddhxoxiiv48/28/2011Pneumococcal Vaccine: 50+ Years (2 of 2 - PCV)12/25/2014 12/25/2013Diabetes: Hemoglobin A1C08/405/4COVID-19 Vaccine ( season), 12/27/2023, 06/21/2023, Additional history existsInfluenza Vaccine (#1), 06/29/2022, 07/15/2021, Additional history existsZoster OqcfwleoXkynbkofk12/08/2023, 01/01/2023, 07/18/2013HIB VaccinesAged OutNo longer eligible based [...] ImplantedTypeAreaManufacturerDevice IdentifierShelf Expiration DateModel / Serial / Isaac Avila Ww,28mm - [id number] Implanted:Qty: 1 on 01/24/2024 by D[facility]en Crane [facility] [id number] / / [id number] Procedures Procedure NamePriorityDate/TimeAssociated DiagnosisCommentsECG 12 LEAD UNIT VNQPJYFYKGjtbfve80/30/2025 12:12 PM EDT Left arm pain HEMOGLOBIN A8PRmlqbqv15/05/2024 6:03 AM EDT from Last 3 Months or Most Recently Relevant to Health Maintenance Results * ECG 12 lead unit performed (06/25/2025 12:12 PM EDT)Specimen (Source) Anatomical Location / LateralityCollection Method / VolumeCollection Time Received Time Narrative Authorizing ProviderResult TypeResult StatusBianka Paul CNPOKLAHOMA HEART [facility] [place] ORDERABLES Final Result * (ABNORMAL) Hemoglobin A1c (01/29/2024 6:03 AM EDT)ComponentValueRef RangeTest MethodAnalysis TimePerformed AtPathologist SignatureHemoglobin A1C7.3(H)4.0 - 6.0 %01/29/2024 3:07 PM [facility] ([facility])Estimated Average Glucose 163mg/dL01/29/2024 3:07 PM [facility] ([facility])Specimen (Source) Anatomical Location / LateralityCollection Method / VolumeCollection Time Received TimeBloodVenous blood specimen / UnknownArterial Line / Unknown 01/29/2024 6:03 AM EDT01/29/2024 6:25 AM EDT Narrative Authorizing ProviderResult TypeResult StatusAnn Paul [facility] BLOOD ORDERABLESFinal ResultPerforming OrganizationAddressCity/State/ZIP CodePhone Number [facility] ([facility]) [address] [place] [address] from Last 3 Months or Most Recently Relevant to Health Maintenance Insurance Advance Directives * Full Code (Latest Code Status on File) Date ActivatedDate InactivatedComments01/24/2024 10:50 AM01/29/2024 5:08 PM Care Teams Team MemberRelationshipSpecialtyStart DateEnd Date Augustine Frost DO [address] [place] [id number] PCP - Fghauct57/11/22
--- OUTSIDE RECORDS SUMMARY | 2025-09-12 09:07 | XMS_ITS | Clinical Summary ---
Author Organization [facility] Address [id number] [place] [address] Care Team Providers Care Dietary Director Name Role Phone Augustine Frost James MADDEN Primary Care Provider [phone] Allergies Active AllergyReactionsCriticalityNoted ApdvRbsswxhhDhrikh37/29/2023enicillin V 01/22/2023Sulfa (Sulfonamide Antibiotics)01/22/2023 Medications MedicationSigDispense QuantityRefillsLast [...] pain.Active Active Problems ProblemNoted DateDiagnosed DateFall, initial pfmyjemhr79/29/2023Subdural koqosrap23/28/2023 Social History Tobacco UseTypesPacks/DayYears UsedDateSmoking Tobacco: WszgreTedfwxlwqx7Lhnc: 01/04/1975Passive Smoke Exposure: NeverSmokeless Tobacco: Never Tobacco [...] True01/22/2023Sex and Gender InformationValueDate RecordedSex Assigned at SgtscDhuo79/29/2023 2:58 AM EDTLegal JjtUfpm9401/21/2023 5:01 PM EDTGender QynmtjryGumx06/29/2023 2:58 AM EDT Sexual VdwlxhibyumDlkiyvpp15/29/2023 2:58 AM EDT Last Filed Vital Signs Vital SignReadingTime TakenCommentsBlood Akgejpfl718/7504 4:13 PM EDT Rpmdq148601/22/2023 4:13 PM DXLCrzqltlgtzc99.6 ??C (97.8 ??F)01/22/2023 4:13 PM EDTRespiratory Zcbt127401/22/2023 4:13 PM EDTOxygen Ttujaqgkfc42%01/22/2023 4:13 PM EDTInhaled Oxygen Concentration--Puhsor884.6 kg (235 lb 0.2 oz)01/22/2023 2:50 AM VAVJwddpn724.9 cm (6')01/22/2023 2:50 AM EDTBody Mass Index31.87 01/22/2023 2:50 AM EDT Plan of Treatment Health MaintenanceDue DateLast DoneCommentsDepression Zsvpjuarc70/28/1958Tobacco Keahbzexz89/28/1958DTaP,Tdap and Td Vaccines (1 - Tdap)1965Fall Risk Frqqggwjp37/28/2011RSV ( or age 60+ yrs) (1 - 1-dose 75+ series) 2021Zoster (Shingles) Vaccine (3 of 3)/04/2023, 07/18/2013 COVID-19 Vaccine ( - season)509/, 04/17/2022, 06/22/2021, Additional history existsInfluenza Gymodnk33/12/2021, 07/15/2021, 07/09/2020, Additional history exists Medical Devices Not on file Insurance Advance Directives * Full Code (Latest Code Status on File) Date ActivatedDate InactivatedComments01/22/2023 2:53 AM4/ 8:59 PM Care Teams Team MemberRelationshipSpecialtyStart DateEnd Date Augustine Frost DO [facility] [place] [address] PCP - GeneralInternal Medicine09/26/22
--- OUTSIDE RECORDS SUMMARY | 2025-09-12 09:07 | XMS_ITS | Continuity of Care Document ---
Author Organization [facility] Address [address] [place] [address] Phone [phone] Care Team Providers Care Furrier Designer Name Role Phone Rudy Kahn DO Care Team Information Minister Of Religion U suzannaailCHUY Hays M.D. Care Team Information Receiv er Unavailable Augustine Frost DO Primary Care Physician Unavail able Allergies and adverse reactions Active Allergies Criticality Reaction Severity Comments Date Penicillin Unable to assess criticality Hives Severe 06/09/2021 Sulfa Antibiotics Unable to assess criticality unknown 06/09/2021 Iodine Unable to assess criticality Anaphylaxis Severe 06/09/2021 Medications Active Medications SIG Qnty Indications Order ing Provider Date Xhmkmgmt137rr Capsules 1 by mouth three times a day 90caps Chuy Weldon M.D. 06/17/2021 Amlodipine Kpafcjpf69kl Tablets Take 1 Tablet By Mouth Once Daily Augustine Frost DO Warfarin Lyezmw6ki Tablets Take 1 & 1 2 (One & One Half) Tablets By Mouth Once Daily Augustine Frost DO Warfarin Sodium7.5mg Tablets Take 1 Tablet By Mouth Once Daily One Day A Week Or as Directed By Clinic Augustine Frost DO Benazepril KXO44ys Tablets Take 1 Tablet By Mouth Once Daily Augustine Frost DO Atorvastatin Zbzahpq09sn Tablets Take 1 Tablet By Mouth Once Daily In The Evening Augustine Frost DO Mguyykqoww7pw Tablets Take 1 To 2 Tablets By Mouth AT Bedtime Unknown Carvedilol6.25mg Tablets Take 1 Tablet By Mouth Twice Daily Augustine Frost DO Trazodone VCN67pp Tablets Take 1 Tablet By Mouth Every Day AT Bedtime Augustine Frost DO Aaljfzpdud33qc Capsules DR 1 by mouth every day Unknown Aspirin Adult Low Rgsfmoao02in Tablets DR 1 by mouth every day Unknown Multi VitaminTablets take 1 tablet by mouth once daily. Unknown Propafenone TOD577td Tablets take 1 tablet by mouth every 8 hours. Unknown Tylenol 500 mg 2 tabs q 8 hrs Unknown [employer] Covid-19 Jgcddue70buq/0.3ML Suspension Unknown Glucosamine-Chondroitin Capsules 1 tab by mouth every day as needed Unknown Vital Signs Date Vital Result Comment 06/09/2021 3:41pm Weight 241.00 lb Weight 109.318 kg BP Systolic 113 mmHg BP Diastolic 61 mmHg Heart Rate 66 /min Body Temperature 98.1 F Height 72 inches 6'0 BMI (Body Mass Index) 32.7 kg/m2
== END 2025-09-12 09:04 | disposition home or self-care (01) ==
LOC: FHNEUROLOG 09:03
PROVIDERS: PCP Internal Medicine; Visit Provider Psychiatry & Neurology Neurology
DX: G47.33 Obstructive sleep apnea (adult) (pediatric) (principal)
CPT/HCPCS: G0463